=== PATIENT | female | born 1940 | race Caucasian/White ===

== ENCOUNTER 2020-03-07 10:14 | Outpatient (CLI) | payer MEDICARE, SELFPAY ==
[2020-03-07 10:55] LABS: Albumin Level 4.4 g/dL (3.5-5.1); Blood Urea Nitrogen 37 mg/dL (7-17); Calcium 9.7 mg/dL (8.4-10.2); Carbon Dioxide 29 mmol/L (22-30); Chloride 101 mmol/L (98-107); Estimated Glomerular Filt Rate 36; Glucose 128 mg/dL (65-105); Phosphorus 4.4 mg/dL (2.5-4.5); Potassium 3.5 mmol/L (3.4-5.0); Sodium 137 mmol/L (137-145)
== END 2020-03-07 10:15 | disposition home or self-care (01) ==
PROVIDERS: Internal Medicine Nephrology; Visit Provider Internal Medicine Nephrology
DX: N18.3 Chronic kidney disease, stage 3 (moderate) (principal)
CPT/HCPCS: 36415; 80069

== ENCOUNTER 2020-09-30 12:29 | Outpatient (CLI) | payer MEDICARE, SELFPAY ==
[2020-09-30 13:40] LABS: Creatinine Urine 69.2 mg/dL; Total Protein Urine Random 154 mg/dL
[2020-09-30 13:46] LABS: Albumin Level 3.9 g/dL (3.5-5.1); Anion Gap 8 mmol/L (8-16); Blood Urea Nitrogen 39 mg/dL (7-17); Calcium 9.2 mg/dL (8.4-10.2); Carbon Dioxide 29 mmol/L (22-30); Chloride 97 mmol/L (98-107); Estimated Glomerular Filt Rate 31; Glucose 103 mg/dL (65-105); Phosphorus 4.3 mg/dL (2.5-4.5); Potassium 3.7 mmol/L (3.4-5.0); Sodium 134 mmol/L (137-145)
[2020-09-30 13:58] LABS: Parathyroid Intact 192.7 pg/mL (7.5-53.5)
[2020-09-30 14:14] LABS: Vitamin D 25 Hydroxy 34.4 ng/mL
== END 2020-09-30 12:30 | disposition home or self-care (01) ==
PROVIDERS: Visit Provider Internal Medicine Nephrology
DX: I12.9 Hypertensive chronic kidney disease with stage 1 through stage 4 chronic kidney disease, or unspecified chronic kidney disease (principal); N18.4 Chronic kidney disease, stage 4 (severe); R80.8 Other proteinuria
CPT/HCPCS: 36415; 80069; 82306; 82570; 83970; 84156

== ENCOUNTER 2020-11-11 13:33 | Outpatient (CLI) | payer MEDICARE, SELFPAY ==
[2020-11-11 14:33] LABS: Albumin Level 3.9 g/dL (3.5-5.1); Anion Gap 5 mmol/L (8-16); Blood Urea Nitrogen 38 mg/dL (7-17); Calcium 9.1 mg/dL (8.4-10.2); Carbon Dioxide 26 mmol/L (22-30); Chloride 105 mmol/L (98-107); Estimated Glomerular Filt Rate 40; Glucose 103 mg/dL (65-105); Potassium 4.3 mmol/L (3.4-5.0); Sodium 136 mmol/L (137-145)
== END 2020-11-11 13:34 | disposition home or self-care (01) ==
PROVIDERS: Visit Provider Internal Medicine Nephrology
DX: R80.8 Other proteinuria (principal); I12.9 Hypertensive chronic kidney disease with stage 1 through stage 4 chronic kidney disease, or unspecified chronic kidney disease; N18.32 Chronic kidney disease, stage 3b
CPT/HCPCS: 36415; 80069

== ENCOUNTER 2020-11-12 12:15 | Outpatient (CLI) | payer MEDICARE, SELFPAY ==
[2020-11-12 13:11] LABS: Total Protein Urine Random 300 mg/dL
== END 2020-11-12 12:16 | disposition home or self-care (01) ==
PROVIDERS: Visit Provider Internal Medicine Nephrology
DX: N18.32 Chronic kidney disease, stage 3b (principal); I12.9 Hypertensive chronic kidney disease with stage 1 through stage 4 chronic kidney disease, or unspecified chronic kidney disease; R80.8 Other proteinuria
CPT/HCPCS: 82570; 84156

== ENCOUNTER 2021-04-02 14:04 | Outpatient (CLI) | payer MEDICARE, SELFPAY ==
[2021-04-02 16:23] LABS: Creatinine Urine 41.9 mg/dL; Total Protein Urine Random 184 mg/dL; Ur Ttl Prot Creatinine Ratio 4.39 mg/mg (0-0.20)
[2021-04-02 16:33] LABS: Anion Gap 6 mmol/L (8-16); Blood Urea Nitrogen 53 mg/dL (7-17); Calcium 9.2 mg/dL (8.4-10.2); Carbon Dioxide 29 mmol/L (22-30); Chloride 102 mmol/L (98-107); Estimated Glomerular Filt Rate 27; Glucose 92 mg/dL (65-105); Phosphorus 4.6 mg/dL (2.5-4.5); Sodium 137 mmol/L (137-145)
[2021-04-02 17:17] LABS: Vitamin D 25 Hydroxy 32.9 ng/mL
== END 2021-04-02 14:05 | disposition home or self-care (01) ==
LOC: ANHLAB 14:15
PROVIDERS: PCP Internal Medicine Nephrology; Visit Provider Internal Medicine Nephrology
DX: I12.9 Hypertensive chronic kidney disease with stage 1 through stage 4 chronic kidney disease, or unspecified chronic kidney disease (principal); N18.31 Chronic kidney disease, stage 3a; E55.9 Vitamin D deficiency, unspecified; R80.8 Other proteinuria
CPT/HCPCS: 36415; 80069; 82306; 82570; 83970; 84156

== ENCOUNTER 2021-08-11 14:03 | Outpatient (CLI) | payer MEDICARE, SELFPAY ==
[2021-08-11 14:52] LABS: Basophils Percent Auto 0.8 % (0.2-1.2); Eosinophils Absolute Auto 0.2 K/mm3 (0-0.3); Hematocrit 29.4 % (37.0-47.0); Hemoglobin 9.8 g/dL (12.0-15.0); Immature Granulocyte Absolute 0.02 K/mm3 (0.00-0.031); Immature Granulocyte Percent A 0.4 % (0-0.5); Lymphocytes Absolute Auto 1.55 K/mm3 (0.9-3.2); Lymphocytes Percent Auto 29.8 % (18.3-44.2); Mean Corpuscular HGB Conc 33.3 g/dl (32-36); Mean Corpuscular Hemoglobin 29.4 pg (26-34); Mean Corpuscular Volume 88.3 fl (80-100); Mean Platelet Volume 8.9 fl (7.4-10.4); Monocytes Absolute Auto 0.6 K/mm3 (0.1-0.6); Monocytes Percent Auto 11.7 % (2.6-8.5); Neutrophils Absolute Auto 2.8 K/mm3 (1.3-6.7); Neutrophils Percent Auto 53.3 % (45.5-73.1); Platelet Count Result 227 k/mm3 (150-375); Red Blood Count 3.33 M/mm3 (4.2-5.4); Red Cell Distribution Width 13.4 % (11.5-14.5); White Blood Count 5.2 K/mm3 (4.5-10.0)
[2021-08-11 15:14] LABS: Alanine Aminotransferase 18 U/L (4-35); Alkaline Phosphatase 68 U/L (38-126); Anion Gap 8 mmol/L (8-16); Aspartate Amino Transferase 26 U/L (14-36); Bilirubin,Total 0.4 mg/dL (0.2-1.3); Blood Urea Nitrogen 49 mg/dL (7-17); Calcium 9.2 mg/dL (8.4-10.2); Carbon Dioxide 26 mmol/L (22-30); Chloride 104 mmol/L (98-107); Estimated Glomerular Filt Rate 23; Glucose 121 mg/dL (65-110); Potassium 3.7 mmol/L (3.4-5.0); Sodium 138 mmol/L (137-145)
== END 2021-08-11 14:04 | disposition home or self-care (01) ==
DX: D64.9 Anemia, unspecified (principal); N18.30 Chronic kidney disease, stage 3 unspecified; D63.1 Anemia in chronic kidney disease
CPT/HCPCS: 36415; 80053; 85025

== ENCOUNTER 2021-08-19 11:07 | Outpatient (CLI) | payer MEDICARE, SELFPAY ==
[2021-08-19 12:17] LABS: Add Urine Microscopic? YES; Appearance Urine Clear (Clear); Bilirubin Urine Negative (Negative); Blood Urine Negative (Negative); Color Urine Yellow (Yellow); Glucose Urine UA Negative (Negative); Ketones Urine Negative (Negative); Leukocyte Esterase Ur Negative LEU/UL (NEGATIVE); Mucus Urine Rare /lpf; Nitrate Urine Negative (Negative); Protein Urine 3+ mg/dL (Negative); RBC Urine 0-2 /hpf (0-2); Specific Grav Ur 1.015 (1.001-1.035); Squamous Epithelial Cell Urine Occasional /hpf (Few); Urobilinogen Urine Negative mg/dL (<2.0); WBC Urine 0-3 /hpf (0-3)
== END 2021-08-19 11:08 | disposition home or self-care (01) ==
LOC: ANHLAB 11:09
PROVIDERS: Visit Provider Internal Medicine Nephrology
DX: R35.89 Other polyuria (principal); R30.0 Dysuria
CPT/HCPCS: 81001; 87086; 87088

== ENCOUNTER 2021-08-21 11:36 | Emergency (ER) | payer MEDICARE, SELFPAY ==
--- NOTE | ~2021-08-21 | CT_ITS ---
EXAMINATION: CT abdomen pelvis wo con DATE: 08/21/2021 12:38 INDICATION: Bilateral flank pain. Low back pain. TECHNIQUE: Computed tomography (CT) of the abdomen and pelvis was performed without intravenous contr ast. Automated exposure control and iterative reconstruction technique were employed. The dose-length product was 448.07 mGy-cm. COMPARISON: None. FINDINGS: The visualized portions of the lung bases demonstrate mild atelectasis. No pleural effusion . The heart size is normal. No pericardial effusion. The liver is normal. There are changes of cholec ystectomy. The spleen, pancreas, adrenal glands, and right kidney are normal. There is cortical thinn ing of left kidney. There is no urolithiasis. There is diverticulosis of the colon without evidence o f diverticulitis. There are no dilated loops of bowel. The appendix is not visualized. There are no p athologically enlarged lymph nodes. There is no free intraperitoneal fluid. There is a right inguinal hernia containing fat. There is moderate lumbar spondylosis. IMPRESSION: 1. Right inguinal hernia containing fat. Reviewed, dictated and finalized at location A.
[2021-08-21 11:37] VITALS: BP 126/57; PULSE 62; RESP 20; TEMP 36.4; O2SAT 100
--- NOTE | 2021-08-21 11:59 | PC.NURSE ---
Pt requesting pain meds frequently. Advised a provider needs to see her and order pain meds.
--- NOTE | 2021-08-21 12:41 | ED.BACK ---
HPI - Back Pain/Injury General Chief Complaint: Back Pain/Injury Stated Complaint: back pain Time Seen by Provider: 08/21/21 12:16 Source: patient Mode of arrival: ambulatory Limitations: no limitations History of Present Illness HPI Narrative: Patient is a 80-year-old female complaining of low back pain, 8 out of 10, dull, aching, worse with movement started 1 week ago. Patient denies any injuries. Patient denies any weakness, numbness, incontinence, urinary symptoms, fever or chills. Related Data Allergies Allergy/AdvReac Type Severity Reaction Status Date / Time No Known Allergies Allergy Verified 08/21/21 11:41 Review of Systems Review of Systems: All systems reviewed & are unremarkable except as noted in HPI and below Constitutional: Constitutional: Denies body ache(s), Denies chills, Denies excessive sweating, Denies fatigue, Denies fever(s), Denies headache(s), Denies lethargy, Denies malaise, Denies weakness and Denies weight loss Eyes: Eyes: Denies blurry vision, Denies change in vision and Denies loss of vision ENT: Denies dizziness, Denies ear discharge, Denies headache(s), Denies lip swelling, Denies epistaxis, Denies nasal congestion, Denies neck pain, Denies throat swelling and Denies tongue swelling Cardiovascular: Cardiovascular: Denies chest pain, Denies chest pain at rest, Denies chest pain with activity, Denies diaphoresis, Denies rapid heart rate, Denies edema, Denies irregular heart rhythm, Denies lightheadedness, Denies palpitations, Denies dyspnea and Denies dyspnea on exertion Respiratory: Respiratory: Denies chest congestion, Denies cough, Denies hemoptysis, Denies dyspnea and Denies dyspnea on exertion Gastrointestinal: Gastrointestinal: Denies abdominal pain, Denies melena, Denies hematochezia, Denies diarrhea, Denies nausea, Denies vomiting and Denies hematemesis Musculoskeletal: Musculoskeletal: Denies abnormal gait, Denies deformity, Denies joint swelling, Denies limited range of motion, Denies neck pain and Denies numbness Neurologic: Denies Abnormal speech present, Denies abnormal gait, Denies confusion, Denies dizziness, Denies headache(s), Denies focal weakness, Denies loss of vision, Denies numbness, Denies Other visual disturbances, Denies Sensory deficit (Neuro) and Denies weakness Psychiatric: Psychiatric: Denies confusion, Denies depression, Denies auditory hallucinations, Denies homicidal ideation and Denies suicidal ideation Endocrine: Endocrine: Denies cold intolerance, Denies excessive sweating, Denies fatigue, Denies heat intolerance and Denies palpitations Hematologic/Lymphatic: Hematologic/Lymphatic: Denies easy bleeding and Denies easy bruising Allergic/Immunologic: Allergic/Immunologic: Denies lip swelling, Denies throat swelling and Denies tongue swelling PMFSH Family History Family History Father Hypertension Family history of elevated blood lipids Sibling Hypertension Family history of elevated blood lipids Social History Social History Smoking status: Never smoker Alcohol intake: current Exam Const: General: cooperative, healthy appearing, comfortable, no acute distress, well developed, alert and awake; No confusion Orientation/consciousness: oriented to person, oriented to place, oriented to time, patient oriented x3 and No confusion Limitations: no limitations HENMT: Head: normal to inspection, normocephalic and atraumatic Ears: hearing grossly normal bilaterally, TM normal on the right and TM normal on the left General nose exam: Normal external nose present, Normal nares present and No nasal discharge present Face and sinus: normal facial exam Mouth: Yes Normal oral and palatal mucosa present, Yes lip normal, Yes tongue normal and Yes oropharynx normal Throat: posterior oropharynx normal, tonsils normal and uvula midline Eyes: General: appeara
[2021-08-21 12:50] LABS: Add Urine Microscopic? YES; Appearance Urine Clear (Clear); Bilirubin Urine Negative (Negative); Blood Urine Negative (Negative); Color Urine Yellow (Yellow); Glucose Urine UA Negative (Negative); Hyaline Casts Urine 20-29 /lpf; Ketones Urine Negative (Negative); Leukocyte Esterase Ur Negative LEU/UL (Negative); Nitrate Urine Negative (Negative); Protein Urine 3+ mg/dL (Negative); Specific Grav Ur 1.014 (1.001-1.035); Squamous Epithelial Cell Urine Rare /hpf (Few); Urobilinogen Urine Negative mg/dL (<2.0); WBC Urine 0-3 /hpf
[2021-08-21] MEDS: KETOROLAC 30 MG/ML VIAL (*BKC) IM (13:35)
[2021-08-21] MEDS: HYDROcodone/acetaminophen (*CRX) 5-325 MG TABLET 1 TAB PO (13:35)
== END 2021-08-21 13:58 | disposition home or self-care (01) ==
PROVIDERS: Emergency Provider Emergency Medicine
DX: M54.50 Low back pain, unspecified (principal)
CPT/HCPCS: 51701; 74176; 81001; 96372; 99284; A9270; J1885

== ENCOUNTER 2021-12-14 13:02 | Outpatient (CLI) | payer MEDICARE, SELFPAY ==
[2021-12-14 13:58] LABS: Anion Gap 10 mmol/L (8-16); Blood Urea Nitrogen 54 mg/dL (7-17); Calcium 8.9 mg/dL (8.4-10.2); Carbon Dioxide 24 mmol/L (22-30); Chloride 103 mmol/L (98-107); Estimated Glomerular Filt Rate 19; Glucose 106 mg/dL (65-110); Phosphorus 4.7 mg/dL (2.5-4.5); Potassium 3.6 mmol/L (3.4-5.0); Sodium 137 mmol/L (137-145)
== END 2021-12-14 13:03 | disposition home or self-care (01) ==
LOC: ANHLAB 13:05
PROVIDERS: Visit Provider Internal Medicine Nephrology
DX: N18.32 Chronic kidney disease, stage 3b (principal); R80.8 Other proteinuria; I12.9 Hypertensive chronic kidney disease with stage 1 through stage 4 chronic kidney disease, or unspecified chronic kidney disease
CPT/HCPCS: 36415; 80069

== ENCOUNTER 2021-12-29 13:52 | Outpatient (CLI) | payer MEDICARE, SELFPAY ==
[2021-12-29 15:33] LABS: Total Protein Urine Random 388 mg/dL; Ur Ttl Prot Creatinine Ratio 4.08 mg/mg (0-0.20)
== END 2021-12-29 13:53 | disposition home or self-care (01) ==
PROVIDERS: Visit Provider Internal Medicine Nephrology
DX: I12.9 Hypertensive chronic kidney disease with stage 1 through stage 4 chronic kidney disease, or unspecified chronic kidney disease (principal); N18.32 Chronic kidney disease, stage 3b; R80.8 Other proteinuria
CPT/HCPCS: 82570; 84156

== ENCOUNTER 2022-04-23 14:01 | Outpatient (NON) | payer MEDICARE, SELFPAY ==
[2022-04-23 15:16] LABS: IFOB Positive Control Positive; Immunochemical Fecal Occult Bl Negative (N)
[2022-04-27 01:55] LABS: Lactoferrin, Stool Negative (Negative)
[2022-04-28 16:49] LABS: H pylori Ag Stool Not Detected (Not Detected)
[2022-04-29 20:58] LABS: Fecal Fat, Ql Abnormal (Normal)
[2022-05-07 17:27] LABS: Pancreatic Elastase, Stool >500 mcg/g
== END 2022-04-23 14:02 | disposition home or self-care (01) ==
DX: K52.9 Noninfective gastroenteritis and colitis, unspecified (principal)
CPT/HCPCS: 36415; 82274; 82653; 82705; 83630; 87045; 87338; 87427

== ENCOUNTER 2022-06-28 15:46 | Outpatient (CLI) | payer MEDICARE, SELFPAY ==
[2022-06-28 16:20] LABS: Albumin Level 3.5 g/dL (3.5-5.1); Anion Gap 10 mmol/L (8-16); Blood Urea Nitrogen 73 mg/dL (7-17); Calcium 8.9 mg/dL (8.4-10.2); Carbon Dioxide 21 mmol/L (22-30); Chloride 103 mmol/L (98-107); Estimated Glomerular Filt Rate 13; Glucose 96 mg/dL (65-110); Phosphorus 6.1 mg/dL (2.5-4.5); Potassium 3.8 mmol/L (3.4-5.0); Sodium 134 mmol/L (137-145)
[2022-06-28 16:24] LABS: Creatinine Urine 84.1 mg/dL
[2022-06-28 18:00] LABS: Total Protein Urine Random 285 mg/dL; Ur Ttl Prot Creatinine Ratio 3.39 mg/mg (0-0.20)
== END 2022-06-28 15:47 | disposition home or self-care (01) ==
PROVIDERS: Visit Provider Internal Medicine Nephrology
DX: R80.8 Other proteinuria (principal); I12.9 Hypertensive chronic kidney disease with stage 1 through stage 4 chronic kidney disease, or unspecified chronic kidney disease; N18.4 Chronic kidney disease, stage 4 (severe)
CPT/HCPCS: 36415; 80069; 82570; 84156

== ENCOUNTER → 2022-07-06 12:38 | Outpatient (CLI) | payer MEDICARE, SELFPAY ==
--- NOTE | ~2022-07-06 | US_ITS ---
EXAMINATION: US renal BI DATE: 07/06/2022 13:07 INDICATION: Renal failure TECHNIQUE: Multiple grayscale and Doppler ultrasound images of the kidneys were obtained. COMPARISON: None. FINDINGS: The right kidney measures 9.4 x 3.8 x 5.2 cm and contains an 8 mm cyst. The left kidney tiago sures 8.7 x 4.7 x 4.3 cm and contains a 9 mm cyst. The kidneys demonstrate normal parenchymal echogen icity. There is no hydronephrosis. The bladder is normal. IMPRESSION: 1. Normal kidneys without hydronephrosis. Reviewed, dictated and finalized at location B.
== END ==
PROVIDERS: Visit Provider Internal Medicine Nephrology
DX: I12.0 Hypertensive chronic kidney disease with stage 5 chronic kidney disease or end stage renal disease (principal); N18.5 Chronic kidney disease, stage 5; R80.0 Isolated proteinuria
CPT/HCPCS: 76775

== ENCOUNTER 2022-07-19 07:32 | Outpatient (CLI) | payer MEDICARE, SELFPAY ==
--- NOTE | 2022-07-16 14:59 | SUR.PREOP ---
Multiple attempts to reach patient since 07/13/22 with several messages left and patient has not called back, Thi in radiology aware.
--- NOTE | 2022-07-16 15:55 | PC.NURSE ---
Pre Radiology instructions Report to the Outpatient Waiting Room, entrance under the green pavilion located off [facility], at time 730 on date 07/19 Procedure Time: 930. YOU MAY BE MONITORED AT HOSPITAL FOR UP TO 4 HOURS AFTER YOUR PROCEDURE. One visitor will be allowed to accompany the patient into the hospital. The visitor will be instructed to remain with patient at all times or leave the building due to restrictions. We will allow the visitor to come back to the postoperative area when patient is ready. NO children visitors allowed at this time. You and your visitor will be asked to self-screen and do not enter if you have any COVID symptoms. A mask is required within the hospital. Patients are to have no food or drink 6 hours prior to procedure time Driving will be restricted after the procedure, you must have a person to drive you home. Labs will be drawn in preop area and once reviewed, you will be taken to radiology area for procedure. When the procedure is completed, you will be taken to outpatient where you will be monitored for several hours. You may have one visitor in this area. Other than holding anti-coagulants, patient may take other medication(s) as scheduled. Prior to your appointment date patients are instructed to hold anti-coagulants after discussing with ordering provider to stop. If unable to discontinue anti-coagulants please notify radiologist. No aspirin or warfarin (Coumadin) for 7 days prior to the procedure. No clopidogrel (Plavix), ticagrelor (Brilinta), prasugrel (Effient) or dabigatran (Pradaxa) for 5 days prior to the procedure. No rivaroxaban (Xarelto), apixaban (Eliquis), dipyridamole (Aggrenox or Persantine) or cilostazol (Pletal) for 2 days prior to the procedure. Medications to discontinue per physician. none Please leave all valuables, including medications, at home the day of procedure. The hospital will not accept responsibility for valuables. Wear comfortable, loose fitting clothing. Follow any additional instructions given to you from ordering provider. Telephone instructions given to dionne Alarcon and asked if any additional questions and then verbalized understanding. Patient advised to call scheduling provider office or registration scheduling [phone] if any additional questions.
[2022-07-16 16:01] VITALS: BMI 25.1
[2022-07-19] VITALS (11 sets, daily range): BP systolic 136–185; BP diastolic 62–89; PULSE 65–76; RESP 16–17; TEMP 36; O2SAT 100
--- NOTE | ~2022-07-19 | US_ITS ---
EXAMINATION: US biopsy renal DATE: 07/19/2022 11:28 INDICATION: Chronic kidney disease stage V. TECHNIQUE: The procedure including the risks, benefits, and alternatives was discussed with the patie nt. Risks discussed included bleeding and infection. The patient understood the risks and agreed to p roceed. A timeout was performed to verify the patient's name, date of , and procedure to be p erformed. The skin overlying the left kidney was prepped and draped in usual sterile fashion. Anest hetic was administered with 1% lidocaine subcutaneously. An 18 gauge core biopsy needle was then use d to obtain 4 core biopsy specimens under continuous sonographic guidance. The entry site was cleaned and dressed. There were no immediate complications. FINDINGS: Ultrasound images demonstrate the needle in the kidney. IMPRESSION: 1. Ultrasound-guided random left kidney core needle biopsy. Reviewed, dictated and finalized at location A.
[2022-07-19 08:21] LABS: Mean Platelet Volume 8.9 fl (7.4-10.4); Platelet Count Result 199 k/mm3 (150-375)
[2022-07-19 08:35] LABS: Prothrombin Time 12.6 Seconds (11.1-14.7)
== END 2022-07-19 14:30 | disposition home or self-care (01) ==
PROVIDERS: Referring Provider Internal Medicine Nephrology; Visit Provider Radiology Diagnostic Radiology
PROC: (CPT 76942; principal; 2022-07-19 09:30)
DX: I12.0 Hypertensive chronic kidney disease with stage 5 chronic kidney disease or end stage renal disease (principal); N18.5 Chronic kidney disease, stage 5; R80.9 Proteinuria, unspecified
CPT/HCPCS: 36415; 50200; 76942; 85049; 85610; 88300; 88305; 88307; 88313; 88329; 88346; 88348; 88350

== ENCOUNTER 2022-08-14 22:55 | Emergency (ER) | payer MEDICARE, SELFPAY ==
--- NOTE | ~2022-08-14 | CT_ITS ---
EXAMINATION: CT brain wo con DATE: 08/15/2022 00:28 INDICATION: Weakness, nausea, dizziness and sensitivity to light. Hypertension. TECHNIQUE: Computed tomography (CT) of the head was performed without intravenous contrast. Sagittal and coronal reconstructions were performed. The mA was adjusted according to patient size. Iterative reconstruction technique was employed. The dose-length product was 605.33 mGy-cm. COMPARISON: None FINDINGS: 10 x 11 x 7 mm region of increased density with some surrounding vasogenic edema at the posterior inf erior prem consistent with small intraparenchymal hemorrhage. No associated mass effect. No acute inf arction or abnormal extra axial fluid collection. There is moderate scattered white matter hypoattenu ation consistent with chronic small vessel ischemic disease. Mild dystrophic calcific a cyst at the b ilateral basal ganglia. Ventricles are normal and symmetric. No mass/mass effect. Changes of bilatera l intraocular lens replacement. The orbits, paranasal sinuses and mastoid air cells are normal. Intra cranial calcified cerebral atherosclerosis is noted at the carotid siphons. IMPRESSION: 1. Small intraparenchymal hemorrhage at the posterior inferior prem. 2. Moderate scattered white matter hypoattenuation consistent with chronic small vessel ischemic dise ase. Reviewed, dictated and finalized at location A. IMPRESSION: 1. Small intraparenchymal hemorrhage at the posterior inferior prem. 2. Moderate scattered white matter hypoattenuation consistent with chronic smal l vessel ischemic disease.
--- NOTE | ~2022-08-14 | XR_ITS ---
EXAMINATION: XR chest 1V portable DATE: 08/15/2022 00:32 INDICATION: Weakness TECHNIQUE: frontal view of the chest was obtained. COMPARISON: Chest radiograph dated 08/19/2009 FINDINGS: Mild opacities at the medial right lower lung zones. Small left paracardial fat pad with chronic blun ting of the left costophrenic angle. No other airspace opacities, pulmonary edema, pleural effusion o r pneumothorax. The cardiomediastinal silhouette is normal. Mild thoracic dextrocurvature. At least m oderate degenerative skeletal changes at the bilateral shoulders. IMPRESSION: 1. Mild opacities at the medial right lower lung zones which could be related to bronchiectasis, atel ectasis, aspiration or pneumonia. Reviewed, dictated and finalized at location A. IMPRESSION: 1. Mild opacities at the medial right lower lung zones which could be related t o bronchiectasis, atelectasis, aspiration or pneumonia.
[2022-08-14 22:56] VITALS: PULSE 81; RESP 16; TEMP 36.2; O2SAT 98
[2022-08-14 23:09] VITALS: BP 258/108
--- NOTE | 2022-08-14 23:22 | ECG_ITS ---
Measurements Intervals [place] Rate: 74 P: 51 TN: 220 QRS: 19 QRSD: 97 T: 28 QT: 441 QTc: 490 Interpretive Statements SINUS RHYTHM WITH FIRST DEGREE AV BLOCK WITH OCCASIONAL SUPRAVENTRICULAR PREMATURE COMPLEXES POSSIBLE LEFT ATRIAL ENLARGEMENT NONSPECIFIC ST ABNORMALITY BORDERLINE ECG NO PREVIOUS ECG AVAILABLE FOR COMPARISON Electronically Signed On 08-15-2022 15:40:17 CDT by Jean Pierre Fowler M.D.
--- NOTE | 2022-08-14 23:28 | ED.GENADULT ---
HPI - General Adult General Chief complaint: Weakness Stated complaint: weakness History of Present Illness HPI narrative: Patient is an 81-year-old female with a history of hypertension, CKD presenting with weakness and vomiting. Patient's son reports that she became generally weak this afternoon and then had several episodes of vomiting. Denies diarrhea, dysuria, abdominal pain, flank pain. Patient also complains that she feels sensitive to light though she denies headache. Denies numbness or weakness, speech changes, vision changes, chest pain, shortness of breath, cough. On arrival, patient continues to have episodes of emesis. Related Data Home Medications Medication Instructions Recorded Confirmed cyclosporine 0.05 % eye drops in a 1 drp EACH EYE DAILY 07/19/22 07/19/22 dropperette (Restasis) hydrochlorothiazide 12.5 mg capsule 12.5 mg PO DAILY 07/19/22 07/19/22 labetalol 200 mg tablet 200 mg PO DAILY 07/19/22 07/19/22 nifedipine 90 mg tablet,extended 90 mg PO DAILY 07/19/22 07/19/22 release Allergies Allergy/AdvReac Type Severity Reaction Status Date / Time No Known Allergies Allergy Verified 08/14/22 23:05 Review of Systems Review of Systems: All systems reviewed & are unremarkable except as noted in HPI and below PMFSH Family History Family History Father Hypertension Family history of elevated blood lipids Sibling Hypertension Family history of elevated blood lipids Social History Social History Smoking status: Never smoker Alcohol intake: current Exam Narrative: GENERAL: Patient intermittently vomiting, appears uncomfortable HEAD: Normocephalic, atraumatic. EYES: PERRLA and EOMI. ENT: Nares clear, no rhinorrhea or epistaxis. Mucous membranes moist. NECK: Supple. CHEST: Clear to auscultation. No respiratory distress. HEART: Regular rate and rhythm. No murmur heard. Normal peripheral pulses. ABDOMEN: Soft, nontender, nondistended, normal active bowel sounds. EXTREMITIES: Normal range of motion. SKIN: Warm, dry, no rash. NEURO: No focal deficits. Alert and oriented x3. PSYCH: Normal mood and affect. Course Course Emergency Course: Patient is an 81-year-old female presenting with vomiting and generalized weakness. Patient is hypertensive on arrival, otherwise vitals are within normal limits. Exam remarkable for the above. EKG per my interpretation shows normal sinus rhythm, normal axis, first-degree AV block, no ST elevations or depressions. Blood work is concerning for a hemoglobin of 6.5. CT head is concerning for a small intraparenchymal hemorrhage in the prem. Patient remains hypertensive so she was placed on a nicardipine drip with goal blood pressure under 140. I spoke with the neuro ICU at [facility] who has accepted the patient for admission. Patient transferred in serious condition. Vital Signs Vital signs: Vital Signs Temperature 97.1 F L 08/14/22 22:56 Pulse Rate 81 08/14/22 22:56 Respiratory Rate 16 08/14/22 22:56 Pulse Oximetry 98 08/14/22 22:56 Oxygen Delivery Room Air 08/14/22 22:56 Temperature 97.1 F L 08/14/22 22:56 Pulse Rate 82 08/15/22 02:01 Respiratory Rate 14 08/15/22 02:01 Blood Pressure 151/66 H 08/15/22 02:15 Pulse Oximetry 98 08/15/22 02:01 Oxygen Delivery Room Air 08/14/22 22:56 Medical Decision Making Vital Signs Vital Signs: Vital Signs Temperature 97.1 F L 08/14/22 22:56 Pulse Rate 81 08/14/22 22:56 Respiratory Rate 16 08/14/22 22:56 Pulse Oximetry 98 08/14/22 22:56 Oxygen Delivery Room Air 08/14/22 22:56 Temperature 97.1 F L 08/14/22 22:56 Pulse Rate 82 08/15/22 02:01 Respiratory Rate 14 08/15/22 02:01 Blood Pressure 151/66 H 08/15/22 02:15 Pulse Oximetry 98 08/15/22 02:01 Oxygen Delivery Room Air 08/14/22 22:56 Lab Data Result diagrams:
[2022-08-14] MEDS: ONDANSETRON INJ 4 MG/2 ML VIAL IV PUSH (23:39)
[2022-08-14 23:49] LABS: Basophils Absolute Auto 0.1 K/mm3 (0.0-0.1); Basophils Percent Auto 0.9 % (0.2-1.2); Eosinophils Absolute Auto 0.1 K/mm3 (0-0.3); Eosinophils Percent Auto 1.5 % (0-4.4); Immature Granulocyte Absolute 0.01 K/mm3 (0.00-0.031); Immature Granulocyte Percent A 0.2 % (0-0.5); Lymphocytes Absolute Auto 1.02 K/mm3 (0.9-3.2); Lymphocytes Percent Auto 18.5 % (18.3-44.2); Mean Corpuscular HGB Conc 32.8 g/dl (32-36); Mean Corpuscular Hemoglobin 28.4 pg (26-34); Mean Corpuscular Volume 86.5 fl (80-100); Mean Platelet Volume 9.2 fl (7.4-10.4); Monocytes Absolute Auto 0.3 K/mm3 (0.1-0.6); Monocytes Percent Auto 5.6 % (2.6-8.5); Neutrophils Percent Auto 73.3 % (45.5-73.1); Platelet Count Result 253 k/mm3 (150-375); Red Blood Count 2.29 M/mm3 (4.2-5.4); Red Cell Distribution Width 13.3 % (11.5-14.5); White Blood Count 5.5 K/mm3 (4.5-10.0)
[2022-08-14 23:52] VITALS: BP 241/91
[2022-08-14 23:56] LABS: Hematocrit 19.8 % (37.0-47.0)
[2022-08-14 23:59] LABS: Lactic Acid Reflex 0.8 mmol/L (0.7-2.0)
--- NOTE | 2022-08-14 23:59 | PC.NURSE ---
Pt stated she had to urinate. agricultural service technician Livier went to assist pt. Per tech, depend noted to be soiled upon placement on bedpan. Unable to urinate. Depend changed.
[2022-08-15] VITALS (8 sets, daily range): BP systolic 151–250; BP diastolic 65–82; PULSE 70–82; RESP 14–16; O2SAT 96–98
[2022-08-15] LABS: Alanine Aminotransferase 19 U/L (6-35); Albumin Level 4.4 g/dL (3.5-5.1); Alkaline Phosphatase 87 U/L (38-126); Anion Gap 14 mmol/L (8-16); Aspartate Amino Transferase 25 U/L (14-36); Bilirubin,Total 0.6 mg/dL (0.2-1.3); Blood Urea Nitrogen 58 mg/dL (7-17); Calcium 9.8 mg/dL (8.4-10.2); Carbon Dioxide 20 mmol/L (22-30); Chloride 104 mmol/L (98-107); Estimated CRCL calculation 10 ml/min; Estimated Glomerular Filt Rate 11; Glucose 146 mg/dL (65-110); Lipase 128 U/L (23-300); Potassium 3.4 mmol/L (3.4-5.0); Sodium 138 mmol/L (137-145)
[2022-08-15 00:05] LABS: Hemoglobin 6.5 g/dL (12.0-15.0)
[2022-08-15 00:20] LABS: Troponin I 0.015 ng/mL (0.000-0.034)
[2022-08-15 00:58] LABS: Add Urine Microscopic? YES; Appearance Urine Clear (Clear); Bilirubin Urine Negative (Negative); Blood Urine Negative (Negative); Color Urine Straw (Yellow); Glucose Urine UA 1+ mg/dL (Negative); Ketones Urine Negative (Negative); Leukocyte Esterase Ur Negative LEU/UL (Negative); Nitrate Urine Negative (Negative); Protein Urine 2+ mg/dL (Negative); RBC Urine 0-2 /hpf (0-2); Specific Grav Ur 1.012 (1.001-1.035); Urobilinogen Urine Negative mg/dL (<2.0); WBC Urine 0-3 /hpf
--- NOTE | 2022-08-15 01:17 | PC.NURSE ---
Talked to Lorena in lab at 01:17 to add on PT INR PTT
[2022-08-15] MEDS: niCARdipine 20 MG/200 ML 20 MG/200 ML BAG 50 MG IV CONT (01:20)
[2022-08-15 01:32] LABS: Partial Thromboplastin Time 31.9 SECONDS (22.3-36.8); Prothrombin Time 12.3 Seconds (11.1-14.7)
== END 2022-08-15 02:15 | disposition short-term general hospital (02) ==
PROVIDERS: Emergency Provider Emergency Medicine
DX: I61.8 Other nontraumatic intracerebral hemorrhage (principal); D64.9 Anemia, unspecified; I10 Essential (primary) hypertension
CPT/HCPCS: 36415; 51701; 70450; 71045; 80053; 81001; 83605; 83690; 84484; 85025; 85610; 85730; 86850; 86900; 86901; 86920; 93005; 96365; 96375; 99291; J2405

== ENCOUNTER 2022-09-10 13:53 | Observation (INO) | payer MEDICARE, SELFPAY ==
[2022-09-10] VITALS (56 sets, daily range): BP systolic 125–174; BP diastolic 50–73; PULSE 76–95; RESP 18–34; TEMP 36–36.9; O2SAT 91–100; BMI 21.2
--- NOTE | ~2022-09-10 | CT_ITS ---
EXAMINATION: CT brain wo con DATE: 09/10/2022 14:53 INDICATION: Decreased mental status TECHNIQUE: Computed tomography (CT) of the head was performed without intravenous contrast. Sagittal and coronal reconstructions were performed. The mA was adjusted according to patient size. Iterative reconstruction technique was employed. The dose-length product was 605.33 mGy-cm. COMPARISON: head CT dated 08/15/2022 FINDINGS: The prior acute intraparenchymal hemorrhage at the prem is no longer discernible. No acute intracrani al hemorrhage, acute infarction or abnormal extra axial fluid collection. There is moderate scattered white matter hypoattenuation consistent with chronic small vessel ischemic disease. Mild dystrophic calcifications at the bilateral basal ganglia. Ventricles are normal and symmetric. No mass/mass effe ct. Changes of bilateral intraocular lens replacement. The orbits, paranasal sinuses and mastoid air cells are normal. Intracranial calcified cerebral atherosclerosis is noted. IMPRESSION: 1. No acute intracranial process. 2. 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 3. Moderate scattered white matter hypoattenuation consistent with chronic small vessel ischemic dise ase. Reviewed, dictated and finalized at location A. RITY SERVICES SPECIALIST IMPRESSION: 1. No acute intracranial process. 2. 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 3. Moderate scattered white matter hypoattenuation consistent with chronic smal l vessel ischemic disease.
--- NOTE | ~2022-09-10 | XR_ITS ---
EXAMINATION: XR chest 1V portable DATE: 09/10/2022 14:52 INDICATION: Shortness of breath TECHNIQUE: frontal view of the chest was obtained. COMPARISON: Chest radiograph dated 08/15/2022 FINDINGS: New elevation of the right hemidiaphragm with new infrahilar opacity medial right lower lung zone. Un changed mild lingular atelectasis/scarring at the left costophrenic angle. No pulmonary edema, pleura l effusion or pneumothorax. Cardiomediastinal silhouette is normal. Large-bore dual-lumen right inter nal jugular central venous catheter with distal tip at the caudal superior vena cava. Cholecystectomy clips in right upper quadrant. Mild thoracic dextrocurvature with mild to moderate spondylosis. 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 IMPRESSION: 1. New elevation of the right hemidiaphragm with right infrahilar opacities which could represent ass ociated atelectasis or pneumonia. Reviewed, dictated and finalized at location A. PMENT MAINTENANCE SUPERINTENDENT IMPRESSION: 1. New elevation of the right hemidiaphragm with right infrahilar opacities whi ch could represent associated atelectasis or pneumonia.
--- NOTE | 2022-09-10 14:07 | ECG_ITS ---
Measurements Intervals [place] Rate: 86 P: 62 FL: 177 QRS: 37 QRSD: 91 T: 49 QT: 388 QTc: 467 Interpretive Statements SINUS RHYTHM POSSIBLE LEFT ATRIAL ENLARGEMENT BORDERLINE T WAVE ABNORMALITY- ANTERIOR LEADS BASELINE ARTIFACT- I, II, III, AVL, AVF, V1-V2, V6 BORDERLINE ECG COMPARED TO ECG 08/14/2022 23:23:55 NO SIGNIFICANT CHANGES Electronically Signed On 09-10-2022 16:20:24 SENIOR STOCK PLAN ADMINISTRATOR by Edward Castaneda D.O.
[2022-09-10 14:29] LABS: Alveolar/Arterial O2 Gradient 143.5 mmHg; Base Excess ABG 5.1 mEq/l (+/-2.0); Carboxyhemoglobin 0.1 % THb (0-2.0); Fractional Inspired Oxygen 36 %; HCO3 ABG 28.4 mEq/l (22.0-26.0); Methemoglobin ABG 0.1 %THb (0-1.5); Oxygen Saturation ABG 95.6 % (95.0-100.0); PCO2 ABG 36.7 mmHg (35.0-45.0); PO2 ABG 70.6 mmHg (80.0-100.0); PO2 FiO2 Ratio Arterial Blood 1.96 %; Reduced Hemoglobin 5.8 %THb (0-5.0)
[2022-09-10 14:31] LABS: Device NASAL CANNULA; Modified Allen's Test Pass; Site Drawn RIGHT RADIAL; pH ABG 7.507 (7.350-7.450)
--- NOTE | 2022-09-10 15:07 | ED.CHESTPAIN ---
HPI - Chest Pain General Chief Complaint: Chest Pain Stated Complaint: chest pain Time Seen by Provider: 09/10/22 13:56 Source: patient, family, EMS and RN notes reviewed Mode of arrival: EMS Limitations: other (stroke) History of Present Illness HPI narrative: This is an 81 year old female who presents from dialysis for evaluation of chest heaviness and shortness of breath. Patient was discharged from [facility] yesterday. She was in hospital for 3-4 weeks for evaluation intracranial hemorrhage. During her hospital course, she required dialysis and oxygen therapy. Her daughter states yesterday patient was discharged to rehab facility without oxygen orders. She was also on CPAP at [facility]. She was told today that patient may have fallen out of her wheelchair yesterday. Today she went to dialysis and her oxygen saturation was in 80s%. She was placed on oxygen at dialysis. Patient was complaining of chest heaviness at dialysis and it was thought to be due to hypoxia. Patient is lethargic and she is unable state if she is still having heaviness. Her daughter states the lethargy started today, and she was fine yesterday. Related Data Home Medications Medication Instructions Recorded Confirmed cyclosporine 0.05 % eye drops in a 1 drp EACH EYE DAILY 07/19/22 07/19/22 dropperette (Restasis) hydrochlorothiazide 12.5 mg capsule 12.5 mg PO DAILY 07/19/22 07/19/22 labetalol 200 mg tablet 200 mg PO DAILY 07/19/22 07/19/22 nifedipine 90 mg tablet,extended 90 mg PO DAILY 07/19/22 07/19/22 release Allergies Allergy/AdvReac Type Severity Reaction Status Date / Time No Known Allergies Allergy Verified 08/14/22 23:05 Review of Systems Review of Systems: ROS unobtainable: Yes unobtainable due to medical condition PMFSH Past Medical History Medical History (Updated 09/10/22 @ 22:31 by Rae Wren NP) End-stage renal disease on hemodialysis Gout Hypertension Surgical History Surgical History (Updated 09/10/22 @ 22:13 by Rae Wren NP) H/O cataract extraction H/O oophorectomy History of colonoscopy Hx of cholecystectomy Hx of parathyroidectomy Partial S/P appendectomy Family History Family History Father Hypertension Family history of elevated blood lipids Sibling Hypertension Family history of elevated blood lipids Social History Social History (Updated 09/10/22 @ 22:15 by Rae Wren NP) Social History: She is and retired. She has a son johnnie and a daughter Agnes listed as her contacts. Is reported that she is a lifelong nonsmoker. Code status full code Smoking status: Never smoker Alcohol intake: current Exam Const: General: ill appearing Limitations: altered mental status HENMT: Head: normal to inspection Eyes: Pupils: Equal, round and reactive pupils present EOM: EOMs intact bilaterally Resp: Effort & Inspection: tachypneic Auscultation: clear to auscultation bilaterally Cardio: Rate: regular rate Rhythm: regular rhythm Heart sounds: no murmurs GI: GI Palp: Yes Soft to palpation, No Tenderness to palpation present (GI) and No Guarding due to palpation present (GI) Auscultation: normal bowel sounds Skin: General skin exam: normal color Rashes: no rashes Neuro: General: moves all extremities and CN's II-XI intact bilaterally Cranial nerves: Yes Nystagmus not present Other: bilateral equal material scheduler strength, bilateral leg weakness, nonfocal, oriented to person Extrem: General: no pedal edema Psych: Mental Status: mental status grossly normal Course Reevaluation(s) Reevaluation #1: Patient's daughter is at bedside. She states patient is doing better. PAtient likely had chest heaviness due to hypoxia. She has been doing better since being on oxygen. Rae accepts patient to hospitalist service for evaluation, serial troponin. . No acute finding on CT brain. Date:
[2022-09-10 15:46] LABS: Basophils Percent Auto 0.3 % (0.2-1.2); Eosinophils Absolute Auto 0.1 K/mm3 (0-0.3); Eosinophils Percent Auto 0.8 % (0-4.4); Hematocrit 25.7 % (37.0-47.0); Hemoglobin 8.3 g/dL (12.0-15.0); Immature Granulocyte Absolute 0.22 K/mm3 (0.00-0.031); Immature Granulocyte Percent A 2.4 % (0-0.5); Lymphocytes Absolute Auto 1.09 K/mm3 (0.9-3.2); Lymphocytes Percent Auto 11.9 % (18.3-44.2); Mean Corpuscular HGB Conc 32.3 g/dl (32-36); Mean Corpuscular Hemoglobin 29.5 pg (26-34); Mean Corpuscular Volume 91.5 fl (80-100); Mean Platelet Volume 9.6 fl (7.4-10.4); Monocytes Absolute Auto 1.1 K/mm3 (0.1-0.6); Monocytes Percent Auto 11.7 % (2.6-8.5); Neutrophils Absolute Auto 6.7 K/mm3 (1.3-6.7); Neutrophils Percent Auto 72.9 % (45.5-73.1); Platelet Count Result 244 k/mm3 (150-375); Red Blood Count 2.81 M/mm3 (4.2-5.4); Red Cell Distribution Width 13.9 % (11.5-14.5); White Blood Count 9.2 K/mm3 (4.5-10.0)
[2022-09-10 15:55] LABS: Lactic Acid Reflex 1.1 mmol/L (0.7-2.0)
[2022-09-10 15:56] LABS: INR 1.1; Prothrombin Time 13.5 Seconds (11.1-14.7)
[2022-09-10 15:57] LABS: Alanine Aminotransferase 42 U/L (6-35); Albumin Level 3.5 g/dL (3.5-5.1); Alkaline Phosphatase 105 U/L (38-126); Anion Gap 14 mmol/L (8-16); Aspartate Amino Transferase 41 U/L (14-36); Bilirubin,Total 0.7 mg/dL (0.2-1.3); Blood Urea Nitrogen 19 mg/dL (7-17); Calcium 8.3 mg/dL (8.4-10.2); Carbon Dioxide 28 mmol/L (22-30); Chloride 92 mmol/L (98-107); Estimated CRCL calculation 26 ml/min; Estimated Glomerular Filt Rate 36; Glucose 109 mg/dL (65-110); Lipase 113 U/L (23-300); Magnesium 1.8 mg/dL (1.6-2.3); Partial Thromboplastin Time 31.5 SECONDS (22.3-36.8); Potassium 3.7 mmol/L (3.4-5.0); Sodium 134 mmol/L (137-145)
[2022-09-10 16:08] LABS: NT Pro B Type Natriuretic Pept 1450 pg/mL (5-100); Troponin I 0.033 ng/mL (0.000-0.034)
[2022-09-10 16:29] LABS: SARS-CoV-2 RNA PCR Negative
[2022-09-10 19:08] LABS: Appearance Urine Clear (Clear); Bilirubin Urine 1+ (Negative); Blood Urine Negative (Negative); Color Urine Yellow (Yellow); Glucose Urine UA Negative (Negative); Ketones Urine Trace mg/dL (Negative); Leukocyte Esterase Ur 1+ LEU/UL (Negative); Nitrate Urine Negative (Negative); Protein Urine 3+ mg/dL (Negative); Urobilinogen Urine 0.2 mg/dL (<2.0); pH Urine 5.5 (5.0-9.0)
[2022-09-10 19:20] LABS: Bacteria Urine 4+ /hpf; Mucus Urine Few /lpf; Squamous Epithelial Cell Urine Occasional /hpf (Few); WBC Urine 16-20 /hpf
[2022-09-10 19:23] LABS: Add Urine Microscopic? YES
[2022-09-10 20:25] LABS: Troponin I 0.033 ng/mL (0.000-0.034)
--- NOTE | 2022-09-10 20:53 | PC.NURSE ---
This patient, Kirsty Rea, was admitted to IMU Room 206-01 on 09/10/22 at 2015. Patient/family oriented to hospital policies and general routines including ID bracelet, bed and alarms, visiting hours, pain management, procedures, bathroom and other care routines, personal items, smoking policy, room service/diet, and visiting hours. Information on how to activate the Rapid Response Team has been discussed. Patient/Family are encouraged to report perceived risks to care and to ask questions if they do not understand what they are told or what they should do.
[2022-09-10 21:26] LABS: Troponin I 0.033 ng/mL (0.000-0.034)
--- NOTE | 2022-09-10 22:04 | PM.IMHP ---
H&P: HPI History of Present Illness Date/Time: 09/10/22 22:04 Chief Complaint: Chest pain Narrative: This is an 81-year-old female patient who has a history of end-stage renal disease and has dialysis on Tuesday. The patient had dialysis today and started to complain of some chest heaviness as well shortness of breath. The patient was just discharged from [facility] yesterday. The patient was there for a intracranial hemorrhage and had been hospitalized for 3-4 weeks there. The patient had been on a CPAP at [facility] and had been on oxygen at [facility]. However the patient was discharged to a rehab facility without any prescription for a CPAP machine or oxygen. Her oxygen levels were 80% tile and they placed oxygen on at 3 L. patient is very lethargic. She is a poor historian. She is also very hard of hearing. Her H&H is 8.3 and 25.7. PH is 7.507. PO2 70.6. Sodium is 134. Creatinine 1.4. All 3 troponins are negative. BNP is 1450. She has 1+ leukocyte Estrace WBC 16-20 and 4+ urine protein. Influenza a and B are pending but she is negative for COVID. Patient was only given Zofran. The patient is being admitted to observation status on the date of service of 09/10/2022 Review of Systems Review of Systems: See HPI information obtained from records as the patient is a poor historian. Also she is very hard of hearing. She is very lethargic and has been falling asleep during this interview. All systems reviewed & are unremarkable except as noted in HPI and below Constitutional: Constitutional: Reports as per HPI and Reports no additional constitutional complaints Eyes: Eyes: Reports as per HPI and Reports no additional eye complaints ENT: Reports system reviewed and no additional complaints, except as documented and Reports Normal hearing present Cardiovascular: Cardiovascular: Reports no additional cardiovascular complaints Respiratory: Respiratory: Reports no additional respiratory complaints and Reports no additional respiratory complaints Gastrointestinal: Gastrointestinal: Reports as per HPI and Reports no additional gastrointestinal complaints Musculoskeletal: Musculoskeletal: Reports no additional musculoskeletal complaints Integumentary/Breasts: Skin/Breast: Reports system reviewed and no additional complaints, except as docu and Reports as per HPI Neurologic: Reports system reviewed and no additional complaints, except as documented, Reports as per HPI and Reports Normal hearing present Psychiatric: Psychiatric: Reports no additional psychiatric complaints and Reports as per HPI Endocrine: Endocrine: Reports no additional endocrine complaints Hematologic/Lymphatic: Hematologic/Lymphatic: Reports no additional hematologic/lymphatic complaints Allergic/Immunologic: Allergic/Immunologic: Reports no additional allergic/immunologic complaints FOR[facility]LY [facility] Past Medical History Medical History (Updated 09/10/22 @ 22:31 by Rae Wren NP) End-stage renal disease on hemodialysis Gout Hypertension Surgical History Surgical History (Updated 09/10/22 @ 22:13 by Rae Wren NP) H/O cataract extraction H/O oophorectomy History of colonoscopy Hx of cholecystectomy Hx of parathyroidectomy Partial S/P appendectomy Family History Family History Father Hypertension Family history of elevated blood lipids Sibling Hypertension Family history of elevated blood lipids Social History Social History (Updated 09/10/22 @ 22:15 by Rae Wren NP) Social History: She is and retired. She has a son johnnie and a daughter Agnes listed as her contacts. Is reported that she is a lifelong nonsmoker. Code status full code Smoking status: Never smoker Alcohol intake: current Meds Home Medications and Allergies Home Medications Medication Instructions Recorded Confirmed Typ
[2022-09-11] VITALS (19 sets, daily range): BP systolic 117–146; BP diastolic 44–67; PULSE 80–91; RESP 18–20; TEMP 36.1–36.6; O2SAT 95–99
[2022-09-11 04:00] LABS: Basophils Percent Auto 0.5 % (0.2-1.2); Eosinophils Absolute Auto 0.2 K/mm3 (0-0.3); Hematocrit 23.3 % (37.0-47.0); Hemoglobin 7.5 g/dL (12.0-15.0); Immature Granulocyte Absolute 0.15 K/mm3 (0.00-0.031); Lymphocytes Percent Auto 16.1 % (18.3-44.2); Mean Corpuscular HGB Conc 32.2 g/dl (32-36); Mean Corpuscular Hemoglobin 29.1 pg (26-34); Mean Corpuscular Volume 90.3 fl (80-100); Mean Platelet Volume 9.3 fl (7.4-10.4); Monocytes Absolute Auto 0.9 K/mm3 (0.1-0.6); Monocytes Percent Auto 11.4 % (2.6-8.5); Neutrophils Absolute Auto 5.1 K/mm3 (1.3-6.7); Platelet Count Result 249 k/mm3 (150-375); Red Blood Count 2.58 M/mm3 (4.2-5.4); Red Cell Distribution Width 13.8 % (11.5-14.5); White Blood Count 7.4 K/mm3 (4.5-10.0)
[2022-09-11 04:04] LABS: Influenza B QL RT-PCR Negative (Negative)
[2022-09-11 04:05] LABS: Influenza A QL RT-PCR Negative (Negative)
[2022-09-11 04:08] LABS: Lactic Acid Reflex 0.7 mmol/L (0.7-2.0)
[2022-09-11 04:10] LABS: Alanine Aminotransferase 39 U/L (6-35); Albumin Level 3.2 g/dL (3.5-5.1); Alkaline Phosphatase 89 U/L (38-126); Anion Gap 10 mmol/L (8-16); Aspartate Amino Transferase 35 U/L (14-36); Bilirubin,Total 0.5 mg/dL (0.2-1.3); Blood Urea Nitrogen 28 mg/dL (7-17); Calcium 8.5 mg/dL (8.4-10.2); Carbon Dioxide 29 mmol/L (22-30); Chloride 95 mmol/L (98-107); Estimated CRCL calculation 19 ml/min; Estimated Glomerular Filt Rate 21; Glucose 90 mg/dL (65-110); Potassium 4.1 mmol/L (3.4-5.0); Sodium 134 mmol/L (137-145)
[2022-09-11] MEDS: hydroCHLOROthiazide 12.5 MG CAPSULE PO (09:57)
[2022-09-11] MEDS: LABETALOL HCL 100 MG TABLET 200 MG PO (09:57)
--- NOTE | 2022-09-11 13:03 | P.CONNP_ITS ---
Assessment and Plan Assessment and plan (1) End stage renal disease: Code(s): N18.6 - End stage renal disease Status: Chronic Assessment and Plan: * last HD treatment on Tuesday (09/10/22) * stable electrolytes noted and no evidence of volume overload * plan next HD treatment on Tuesday if remains hospitalized (2) Hypoxia: Code(s): R09.02 - Hypoxemia Status: Acute Assessment and Plan: * suspect admission symptoms (chest pain and altered mental status) due to this issue * was apparently on chronic oxygen therapy while at [facility] * however, on discharge to care home, she was not receiving any oxygen therapy * suspect she may have been hypoxic for at least 12+ hours before her presentation to dialysis yesterday * questionable pneumonia by admission CXR * likely covered by IV ceftriaxone (started for possible UTI) * stable oxygenation of current supplemental oxygen setting * continue supportive therapy (3) Anemia: Code(s): D64.9 - Anemia, unspecified Status: Acute Assessment and Plan: * due to ESRD and recent acute illness * suspect frequent blood draws with last hospitalization at [facility] have nothelped either * Epogen with HD * follow trend of H/H (4) Chest pain: Code(s): R07.9 - Chest pain, unspecified Status: Acute Assessment and Plan: * no further complaints at this time * suspect due to hypoxia rather than ACS * troponin negative x 3 (5) Hypertension: Code(s): I10 - Essential (primary) hypertension Status: Chronic Assessment and Plan: * reasonable control at this time * probably okay to resume home/oral medications since mentation is better * would probably d/c HCTZ given her ESRD status (6) UTI (urinary tract infection): Code(s): N39.0 - Urinary tract infection, site not specified Status: Acute Assessment and Plan: * admission UA highly suggestive * follow up on blood/urine cultures * on empiric antibiotics Long extensive discussion ( greater than 20 min) with the patient's daughters at bedside regarding her end-stage renal disease, hypoxia, need for chronic / supplemental oxygen therapy, and her overall clinical status. They both appeared to voice understanding. Will continue to follow. History of Present Illness Reason for Consult Consult date: 09/11/22 Reason for consult: end stage renal disease Chief Complaint Chief complaint: chest pain, dyspnea History of Present Illness Narrative: The patient is 81-year-old female with a past medical history is outlined below who presented to [facility] room for further evaluation of chest pain and shortness of breath. The patient was just recently discharged from [facility] after suffering an intracranial hemorrhage and was hospitalized there for almost four weeks. during that hospitalization, her known advanced chronic kidney disease progressed to end-stage renal disease and she was initiated on renal replacement therapy / dialysis. She was just discharged on (09/09/2022) and had a and had her 1st outpatient dialysis treatment yesterday. During that dialysis treatment, she was quite agitated and she was noted to be quite hypoxic. 3-4 L of supplemental oxygen was applied which did improve her oxygen saturations but then she developed chest pain. Her dialysis treatment was aborted and she was subsequently transferred to the emergency room for further assessment. Workup and evaluation in the emergency joanne
--- NOTE | 2022-09-11 13:03 | PM.CNNEP ---
Assessment and Plan Assessment and plan (1) End stage renal disease: Code(s): N18.6 - End stage renal disease Status: Chronic Assessment and Plan: last HD treatment on Tuesday (09/10/22) stable electrolytes noted and no evidence of volume overload plan next HD treatment on Tuesday if remains hospitalized (2) Hypoxia: Code(s): R09.02 - Hypoxemia Status: Acute Assessment and Plan: suspect admission symptoms (chest pain and altered mental status) due to this issue was apparently on chronic oxygen therapy while at [facility] however, on discharge to senior living, she was not receiving any oxygen therapy suspect she may have been hypoxic for at least 12+ hours before her presentation to dialysis yesterday questionable pneumonia by admission CXR likely covered by IV ceftriaxone (started for possible UTI) stable oxygenation of current supplemental oxygen setting continue supportive therapy (3) Anemia: Code(s): D64.9 - Anemia, unspecified Status: Acute Assessment and Plan: due to ESRD and recent acute illness suspect frequent blood draws with last hospitalization at [facility] have nothelped either Epogen with HD follow trend of H/H (4) Chest pain: Code(s): R07.9 - Chest pain, unspecified Status: Acute Assessment and Plan: no further complaints at this time suspect due to hypoxia rather than ACS troponin negative x 3 (5) Hypertension: Code(s): I10 - Essential (primary) hypertension Status: Chronic Assessment and Plan: reasonable control at this time probably okay to resume home/oral medications since mentation is better would probably d/c HCTZ given her ESRD status (6) UTI (urinary tract infection): Code(s): N39.0 - Urinary tract infection, site not specified Status: Acute Assessment and Plan: admission UA highly suggestive follow up on blood/urine cultures on empiric antibiotics Long extensive discussion ( greater than 20 min) with the patient's daughters at bedside regarding her end-stage renal disease, hypoxia, need for chronic / supplemental oxygen therapy, and her overall clinical status. They both appeared to voice understanding. Will continue to follow. History of Present Illness Reason for Consult Consult date: 09/11/22 Reason for consult: end stage renal disease Chief Complaint Chief complaint: chest pain, dyspnea History of Present Illness Narrative: The patient is 81-year-old female with a past medical history is outlined below who presented to [facility] Emergency room for further evaluation of chest pain and shortness of breath. The patient was just recently discharged from [facility] after suffering an intracranial hemorrhage and was hospitalized there for almost four weeks. during that hospitalization, her known advanced chronic kidney disease progressed to end-stage renal disease and she was initiated on renal replacement therapy / dialysis. She was just discharged on (09/09/2022) and had a and had her 1st outpatient dialysis treatment yesterday. During that dialysis treatment, she was quite agitated and she was noted to be quite hypoxic. 3-4 L of supplemental oxygen was applied which did improve her oxygen saturations but then she developed chest pain. Her dialysis treatment was aborted and she was subsequently transferred to the emergency room for further assessment. Workup and evaluation in the emergency room demonstrated oxygen saturations of 80% on room air in association with lethargy. Routine blood test demonstrated labs consistent with a known history of end-stage renal disease and her EKG was not significant for any type of ischemic changes. Her troponins were not indicative of any acute coronary syndrome either. Ft with application of supplemental oxygen, her O2 sats improved to the 95-99% range on 4 L. by the time o
--- NOTE | 2022-09-11 15:02 | PM.IMPN ---
Progress Note: A&P Assessment and Plan (1) Chest pain: Code(s): R07.9 - Chest pain, unspecified Status: Acute Assessment and Plan: -patient no longer complains of any chest pain. -troponins are negative x3. - The patient may be moved to a medical-surgical floor and off of IMU. -EKG was read as the following SINUS RHYTHM POSSIBLE LEFT ATRIAL ENLARGEMENT BORDERLINE T WAVE ABNORMALITY- ANTERIOR LEADS BASELINE ARTIFACT- I, II, III, AVL, AVF, V1-V2, V6 BORDERLINE ECG COMPARED TO ECG 08/14/2022 23:23:55 NO SIGNIFICANT CHANGES Electronically Signed On 09-10-2022 16:20:24 DIGITAL CARTOGRAPHER by Edward Castaneda -patient may be complaining of chest pain due to dialysis or due to the hypoxia. Chest x-ray was read as1. New elevation of the right hemidiaphragm with right infrahilar opacities which could represent associated atelectasis or pneumonia. However the patient does not have a fever at this point and does not have any white count elevation. 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 The patient was at dialysis today when she developed chest pain. -nephrology has been consulted. (3) Hypertension: Code(s): I10 - Essential (primary) hypertension Status: Chronic Assessment and Plan: -it looks like the patient is on hydrochlorothiazide labetalol and nifedipine. The patient is too lethargic to take her medication at this point. Her blood pressure is 125/61. -her home meds are not reconciled at this point. So I will do p.r.n. hydralazine. (4) Hypoxia: Code(s): R09.02 - Hypoxemia Status: Acute Assessment and Plan: -it was reported that the patient had been on oxygen at [facility] and on a CPAP. -I did order a CPAP and a home O2 evaluation. (5) UTI (urinary tract infection): Code(s): N39.0 - Urinary tract infection, site not specified Status: Acute Assessment and Plan: -patient was started on Rocephin. Tailor antibiotics to cultures. -urine and blood cultures are pending. (6) Gout: Code(s): M10.9 - Gout, unspecified Status: Acute Assessment and Plan: -the patient is on any medication at this time. Subjective Date/time seen: 09/11/22 15:02 Chest pain HPI-Narrative: This is an 81-year-old female patient who has a history of end-stage renal disease and has dialysis on Tuesday.? The patient had dialysis today and started to complain of some chest heaviness as well shortness of breath.? The patient was just discharged from [facility] yesterday.? The patient was there for a intracranial hemorrhage and had been hospitalized for 3-4 weeks there.? The patient had been on a CPAP at [facility] and had been on oxygen at [facility].? However the patient was discharged to a rehab facility without any prescription for a CPAP machine or oxygen.? Her oxygen levels were 80% tile and they placed oxygen on at 3 L. patient is very lethargic.? She is a poor historian.? She is also very hard of hearing.? Her H&H is 8.3 and 25.7.? PH is 7.507.? PO2 70.6.? Sodium is 134.? Creatinine 1.4.? All 3 troponins are negative.? BNP is 1450.? She has 1+ leukocyte Estrace WBC 16-20 and 4+ urine protein.? Influenza a and
[2022-09-12] VITALS (19 sets, daily range): BP systolic 94–153; BP diastolic 46–63; PULSE 76–91; RESP 17–28; TEMP 36.5–37.2; O2SAT 95–99
[2022-09-12 05:03] LABS: Hematocrit 21.6 % (37.0-47.0); Mean Corpuscular HGB Conc 31.5 g/dl (32-36); Mean Corpuscular Hemoglobin 29.2 pg (26-34); Mean Corpuscular Volume 92.7 fl (80-100); Mean Platelet Volume 9.2 fl (7.4-10.4); Platelet Count Result 278 k/mm3 (150-375); Red Blood Count 2.33 M/mm3 (4.2-5.4); White Blood Count 7.3 K/mm3 (4.5-10.0)
[2022-09-12 05:05] LABS: Hemoglobin 6.8 g/dL (12.0-15.0)
[2022-09-12 05:15] LABS: Anion Gap 7 mmol/L (8-16); Blood Urea Nitrogen 46 mg/dL (7-17); Calcium 8.4 mg/dL (8.4-10.2); Carbon Dioxide 28 mmol/L (22-30); Chloride 92 mmol/L (98-107); Estimated CRCL calculation 12 ml/min; Estimated Glomerular Filt Rate 13; Glucose 89 mg/dL (65-110); Phosphorus 3.9 mg/dL (2.5-4.5); Potassium 3.7 mmol/L (3.4-5.0); Sodium 127 mmol/L (137-145)
[2022-09-12] MEDS: LABETALOL HCL 100 MG TABLET 200 MG PO (09:34)
[2022-09-12] MEDS: hydroCHLOROthiazide 12.5 MG CAPSULE PO (09:34)
[2022-09-12 12:08] LABS: Hematocrit 20.7 % (37.0-47.0); Hemoglobin 6.6 g/dL (12.0-15.0)
--- NOTE | 2022-09-12 12:37 | PM.PNNEP ---
Progress Note: A&P Assessment and Plan (1) End stage renal disease: Code(s): N18.6 - End stage renal disease Status: Chronic Assessment and Plan: last HD treatment on Tuesday (09/10/22) HD tomorrow and continue outpatient schedule of M/W/F follow electrolytes, volume status, and clearance (2) Hypoxia: Code(s): R09.02 - Hypoxemia Status: Acute Assessment and Plan: suspect admission symptoms (chest pain and altered mental status) due to this issue was apparently on chronic oxygen therapy while at [facility] however, on discharge to longterm, she was not receiving any oxygen therapy suspect she may have been hypoxic for at least 12+ hours before her presentation to dialysis on Tuesday (09/10/22) questionable pneumonia by admission CXR however, covered by IV ceftriaxone (started for possible UTI) stable oxygenation of current supplemental oxygen setting continue supportive therapy (3) Anemia: Code(s): D64.9 - Anemia, unspecified Status: Acute Assessment and Plan: low H/H noted this AM due to ESRD and recent acute illness suspect frequent blood draws with last hospitalization at [facility] may be contributing Epogen with HD PRBC transfusion planned with dialysis tomorrow check iron studies -- however, hesitant to give if she does indeed have pneumonia follow trend of H/H (4) Chest pain: Code(s): R07.9 - Chest pain, unspecified Status: Acute Assessment and Plan: no further complaints at this time suspect due to hypoxia rather than ACS troponin negative x 3 (5) Hypertension: Code(s): I10 - Essential (primary) hypertension Status: Chronic Assessment and Plan: reasonable control at this time discharge summary from [facility] indicates she was on amlodipine (10mg qday), losartan (100mg qday), coreg (25mg bid), hydralazine (100mg tid), and clonidine (O.2mg/24hr patch) not currently on this regimen follow trend of hemodynamics for now perhaps dialysis is helping keep BP stable (6) UTI (urinary tract infection): Code(s): N39.0 - Urinary tract infection, site not specified Status: Acute Assessment and Plan: admission UA highly suggestive blood/urine cultures so far negative on empiric antibiotics Will continue to follow. Subjective Date/time seen: 09/12/22 12:37 Overall, she seems to be doing better in general since admission; mentation is back to baseline and has stable oxygen saturations with use of supplemental oxygen; noted drop in H/H by AM labs (and confirmed by repeat testing); no other issues/events overnight or earlier this AM. Exam Narrative: General: elderly frail female in NAD Heart: normal S1 and S2; no rub Lungs: coarse breath sounds Abdomen: soft, nontender, nondistended, positive bowel sounds Extremities: no cyanosis or clubbing; no edema Skin: warm and dry Objective Data Vital Signs Vital Signs: Vital Signs Temp Pulse Resp BP Pulse Ox O2 Del Method O2 Flow Rate 09/12/22 12:00 36.9 C 79 24 H 94/46 L 99 09/12/22 10:00 76 09/12/22 08:00 84 09/12/22 08:00 96 Nasal Cannula 3 09/12/22 09:50 97 Nasal Cannula 3 09/12/22 09:34 89 09/12/22 08:00 36.6 C 90 20 131/59 L 99 09/12/22 06:00 83 09/12/22 04:00 84 09/12/22 04:00 98 Nasal Cannula 3 09/12/22 02:00 86 09/12/22 00:00 85 09/11/22 22:00 85 09/11/22 20:00 87 09/12/22 00:00 99 Nasal Cannula 3 09/11/22 20:00 99 Nasal Cannula 3 09/11/22 23:20 36.6 C 84 18 139/62 99 09/11/22 20:54 36.4 C 87 18 143/51 H 99 09/11/22 18:00 86 Intake/Output Intake/Output: Intake & Output 09/09/22 09/10/22 09/11/22 09/12/22 23:59 23:59 23:59 23:59 Intake Total 1140 950 Balance 1140 950 Meds/Results Medications: Active Medications Generic Name Dose
--- NOTE | 2022-09-12 12:37 | P.PNNP_ITS ---
Progress Note: A&P Assessment and Plan (1) End stage renal disease: Code(s): N18.6 - End stage renal disease Status: Chronic Assessment and Plan: * last HD treatment on Tuesday (09/10/22) * HD tomorrow and continue outpatient schedule of M/W/F * follow electrolytes, volume status, and clearance (2) Hypoxia: Code(s): R09.02 - Hypoxemia Status: Acute Assessment and Plan: * suspect admission symptoms (chest pain and altered mental status) due to this issue * was apparently on chronic oxygen therapy while at [facility] * however, on discharge to assisted, she was not receiving any oxygen therapy * suspect she may have been hypoxic for at least 12+ hours before her presentation to dialysis on Tuesday (09/10/22) * questionable pneumonia by admission CXR * however, covered by IV ceftriaxone (started for possible UTI) * stable oxygenation of current supplemental oxygen setting * continue supportive therapy (3) Anemia: Code(s): D64.9 - Anemia, unspecified Status: Acute Assessment and Plan: * low H/H noted this AM * due to ESRD and recent acute illness * suspect frequent blood draws with last hospitalization at [facility] may be contributing * Epogen with HD * PRBC transfusion planned with dialysis tomorrow * check iron studies -- however, hesitant to give if she does indeed have pneumonia * follow trend of H/H (4) Chest pain: Code(s): R07.9 - Chest pain, unspecified Status: Acute Assessment and Plan: * no further complaints at this time * suspect due to hypoxia rather than ACS * troponin negative x 3 (5) Hypertension: Code(s): I10 - Essential (primary) hypertension Status: Chronic Assessment and Plan: * reasonable control at this time * discharge summary from [facility] indicates she was on amlodipine (10mg qday), losartan (100mg qday), coreg (25mg bid), hydralazine (100mg tid), and clonidine (O.2mg/24hr patch) * not currently on this regimen * follow trend of hemodynamics for now * perhaps dialysis is helping keep BP stable (6) UTI (urinary tract infection): Code(s): N39.0 - Urinary tract infection, site not specified Status: Acute Assessment and Plan: * admission UA highly suggestive * blood/urine cultures so far negative * on empiric antibiotics Will continue to follow. Subjective Date/time seen: 09/12/22 12:37 Overall, she seems to be doing better in general since admission; mentation is back to baseline and has stable oxygen saturations with use of supplemental oxygen; noted drop in H/H by AM labs (and confirmed by repeat testing); no other issues/events overnight or earlier this AM. Exam Narrative: General: elderly frail female in NAD Heart: normal S1 and S2; no rub Lungs: coarse breath sounds Abdomen: soft, nontender, nondistended, positive bowel sounds Extremities: no cyanosis or clubbing; no edema Skin: warm and dry Objective Data Vital Signs Vital Signs: Vital Signs Temp Pulse Resp BP Pulse Ox O2 Del Method O2 Flow Rate 09/12/22 12:00 36.9 C 79 24 H 94/46 L 99 09/12/22 10:00 76 09/12/22 08:00 84 09/12/22 08:00 96 Nasal Cannula 3 09/12/22 09:50 97 Nasal Cannula 3 09/12/22 09:34 89 09/12/22 08:00 36.6 C 90 20 131/59 L 99
--- NOTE | 2022-09-12 13:21 | PCOTNOTE ---
Attempted OT evaluation; per nurse report, patients blood pressure is too low for evaluation. Will follow up tomorrow.
--- NOTE | 2022-09-12 13:34 | PCPTNOTE ---
Nursing reports patient's blood pressure is too low to attempy evaluation at this time, will attempt again tomorrow.
[2022-09-12] MEDS: TUBING, BLOOD PLUM PUMP TUBING 1 EACH XX (13:50)
[2022-09-12] MEDS: SODIUM CHLORIDE 0.9% IV 250 ML 30 ML IV CONT (13:50)
--- NOTE | 2022-09-12 14:31 | PM.IMPN ---
Progress Note: A&P Assessment and Plan (1) Chest pain: Code(s): R07.9 - Chest pain, unspecified Status: Acute Assessment and Plan: -patient no longer complains of any chest pain. -troponins are negative x3. - The patient may be moved to a medical-surgical floor and off of IMU. -EKG was read as the following SINUS RHYTHM POSSIBLE LEFT ATRIAL ENLARGEMENT BORDERLINE T WAVE ABNORMALITY- ANTERIOR LEADS BASELINE ARTIFACT- I, II, III, AVL, AVF, V1-V2, V6 BORDERLINE ECG COMPARED TO ECG 08/14/2022 23:23:55 NO SIGNIFICANT CHANGES Electronically Signed On 09-10-2022 16:20:24 ANIMAL DAYCARE PROVIDER by Edward Castaneda -patient may be complaining of chest pain due to dialysis or due to the hypoxia. Chest x-ray was read as1. New elevation of the right hemidiaphragm with right infrahilar opacities which could represent associated atelectasis or pneumonia. However the patient does not have a fever at this point and does not have any white count elevation. 09/12/2022 interval history:?81-year-old female with history of end-stage renal disease on hemodialysis presented emergency department with a complaint of chest pain after her dialysis session, patient? 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 also patient's friend is present in the room and states patient is doing much better than last time she saw her, (2) End-stage renal disease on hemodialysis: Code(s): N18.6 - End stage renal disease; Z99.2 - Dependence on renal dialysis Status: Acute Assessment and Plan: -patient has end-stage renal disease and is on dialysis Tuesday. The patient was at dialysis today when she developed chest pain. -nephrology has been consulted. (3) Hypertension: Code(s): I10 - Essential (primary) hypertension Status: Chronic Assessment and Plan: -it looks like the patient is on hydrochlorothiazide labetalol and nifedipine. The patient is too lethargic to take her medication at this point. Her blood pressure is 125/61. -her home meds are not reconciled at this point. So I will do p.r.n. hydralazine. (4) Hypoxia: Code(s): R09.02 - Hypoxemia Status: Acute Assessment and Plan: -it was reported that the patient had [facility] and on a CPAP. -I did order a CPAP and a home O2 evaluation. (5) UTI (urinary tract infection): Code(s): N39.0 - Urinary tract infection, site not specified Status: Acute Assessment and Plan: -patient was started on Rocephin. Tailor antibiotics to cultures. -urine and blood cultures are pending. (6) Gout: Code(s): M10.9 - Gout, unspecified Status: Acute Assessment and Plan: -the patient is on any medication at this time. Subjective Date/time seen: 09/12/22 14:31 -patient no longer complains of any chest pain.? -troponins are negative x3. - The patient may be moved to a medical-surgical floor and off of IMU. -EKG was read as the following SINUS RHYTHM POSSIBLE LEFT ATRIAL ENLARGEMENT BORDERLINE T WAVE ABNORMALITY- ANTERIOR LEADS BASELINE ARTIFACT- I, II, III, AVL, AVF, V1-V2, V6 BORDERLINE ECG COMPARED TO ECG 08/14/2022 23:23:55 NO SIGNIFICANT CHANGES Electronically Signed On 09-10-2022 16:20:24 ANIMAL DAYCARE PROVIDER by Edward Castaneda -patient may be complaining of chest pain due to dialysis or due to the hypoxia. Chest x-ray was read as1. New elevation of the right hemidiaphragm with right infrahilar opacities which could represent associated atelectasis or pneumonia.? However the patient does not have a fever at this point and d
[2022-09-12 17:37] LABS: Hematocrit 23.1 % (37.0-47.0); Hemoglobin 7.6 g/dL (12.0-15.0)
[2022-09-12 23:41] LABS: Hematocrit 23.5 % (37.0-47.0); Hemoglobin 7.9 g/dL (12.0-15.0)
[2022-09-13] VITALS (34 sets, daily range): BP systolic 102–152; BP diastolic 53–77; PULSE 84–112; RESP 16–20; TEMP 36–37.2; O2SAT 95–100; BMI 21.2
[2022-09-13 05:05] LABS: Hematocrit 23.6 % (37.0-47.0); Hemoglobin 7.9 g/dL (12.0-15.0)
[2022-09-13 05:17] LABS: Albumin Level 3.1 g/dL (3.5-5.1); Anion Gap 10 mmol/L (8-16); Blood Urea Nitrogen 55 mg/dL (7-17); Calcium 8.6 mg/dL (8.4-10.2); Carbon Dioxide 26 mmol/L (22-30); Chloride 89 mmol/L (98-107); Estimated CRCL calculation 10 ml/min; Estimated Glomerular Filt Rate 11; Glucose 90 mg/dL (65-110); Phosphorus 4.5 mg/dL (2.5-4.5); Potassium 3.5 mmol/L (3.4-5.0); Sodium 125 mmol/L (137-145)
[2022-09-13 05:34] LABS: Iron 45 ug/dL (37-170)
[2022-09-13 05:44] LABS: Percent Iron Saturation 22 % (20-50)
[2022-09-13 06:05] LABS: Hepatitis B Surface Antigen Negative (Negative)
[2022-09-13 06:53] LABS: Hepatitis B Surface Anti Res Positive
--- NOTE | 2022-09-13 13:40 | P.PNNP_ITS ---
Progress Note: A&P Assessment and Plan (1) End stage renal disease: Code(s): N18.6 - End stage renal disease Status: Chronic Assessment and Plan: * HD today and continue outpatient schedule of M/W/ * follow electrolytes, volume status, and clearance (2) Hypoxia: Code(s): R09.02 - Hypoxemia Status: Acute Assessment and Plan: * suspect admission symptoms (chest pain and altered mental status) due to this issue * was apparently on chronic oxygen therapy while at [facility] * however, [facility], she was not receiving any oxygen therapy * suspect she may have been hypoxic for at least 12+ hours before her presentation to dialysis on Tuesday (09/10/22) * questionable pneumonia by admission CXR * however, covered by IV ceftriaxone (started for possible UTI) * stable oxygenation of current supplemental oxygen setting * continue supportive therapy (3) Anemia: Code(s): D64.9 - Anemia, unspecified Status: Acute Assessment and Plan: * low H/H noted by 09/12/22 AM labs * due to ESRD and recent acute illness * suspect frequent blood draws with last hospitalization at [facility] may be contributing * Epogen with HD * s/p PRBC transfusion * adequate iron studiesby anemia studies * follow trend of H/H (4) Chest pain: Code(s): R07.9 - Chest pain, unspecified Status: Acute Assessment and Plan: * no further complaints at this time * suspect due to hypoxia rather than ACS * troponin negative x 3 (5) Hypertension: Code(s): I10 - Essential (primary) hypertension Status: Chronic Assessment and Plan: * reasonable control at this time * discharge summary from [facility] indicates she was on amlodipine (10mg qday), losartan (100mg qday), coreg (25mg bid), hydralazine (100mg tid), and clonidine (0.2mg/24hr patch) * not currently on this regimen but BP controlled * follow trend of hemodynamics for now * perhaps dialysis is helping keep BP stable (6) UTI (urinary tract infection): Code(s): N39.0 - Urinary tract infection, site not specified Status: Acute Assessment and Plan: * admission UA highly suggestive * blood/urine cultures so far negative * on empiric antibiotics Will continue to follow. Subjective Date/time seen: 09/13/22 13:40 Tolerating dialysis treatment at the time of my visit (seen on HD treatment at 1:30PM); s/p PRBC transfusion yesterday with appropriate incrementation of H/H; respiratory status as well as mentation remain stable if not better at this time; no other issues/events overnight or earlier this morning. Exam Narrative: General: elderly frail female in NAD Heart: normal S1 and S2; no rub Lungs: coarse breath sounds Abdomen: soft, nontender, nondistended, positive bowel sounds Extremities: no cyanosis or clubbing; no edema Skin: warm and dry Objective Data Vital Signs Vital Signs: Vital Signs Temp Pulse Resp BP Pulse Ox O2 Del Method O2 Flow Rate 09/13/22 13:30 101 H 120/67 09/13/22 13:15 99 113/59 L 09/13/22 13:00 99 132/72 09/13/22 12:45 100 129/68 09/13/22 12:30 103 H 119/57 L 09/13/22 12:15 102 H 128/69 09/13/22 12:00 104 H 136/70 09/13/22 11:45 100 133/53 L 09/13/22 11:30 98 133
--- NOTE | 2022-09-13 13:40 | PM.PNNEP ---
Progress Note: A&P Assessment and Plan (1) End stage renal disease: Code(s): N18.6 - End stage renal disease Status: Chronic Assessment and Plan: HD today and continue outpatient schedule of M/W/F follow electrolytes, volume status, and clearance (2) Hypoxia: Code(s): R09.02 - Hypoxemia Status: Acute Assessment and Plan: suspect admission symptoms (chest pain and altered mental status) due to this issue was apparently on chronic oxygen therapy while at [facility] however, on discharge to [facility], she was not receiving any oxygen therapy suspect she may have been hypoxic for at least 12+ hours before her presentation to dialysis on Tuesday (09/10/22) questionable pneumonia by admission CXR however, covered by IV ceftriaxone (started for possible UTI) stable oxygenation of current supplemental oxygen setting continue supportive therapy (3) Anemia: Code(s): D64.9 - Anemia, unspecified Status: Acute Assessment and Plan: low H/H noted by 09/12/22 AM labs due to ESRD and recent acute illness suspect frequent blood draws with last hospitalization at [facility] may be contributing Epogen with HD s/p PRBC transfusion adequate iron studiesby anemia studies follow trend of H/H (4) Chest pain: Code(s): R07.9 - Chest pain, unspecified Status: Acute Assessment and Plan: no further complaints at this time suspect due to hypoxia rather than ACS troponin negative x 3 (5) Hypertension: Code(s): I10 - Essential (primary) hypertension Status: Chronic Assessment and Plan: reasonable control at this time discharge summary from [facility] indicates she was on amlodipine (10mg qday), losartan (100mg qday), coreg (25mg bid), hydralazine (100mg tid), and clonidine (0.2mg/24hr patch) not currently on this regimen but BP controlled follow trend of hemodynamics for now perhaps dialysis is helping keep BP stable (6) UTI (urinary tract infection): Code(s): N39.0 - Urinary tract infection, site not specified Status: Acute Assessment and Plan: admission UA highly suggestive blood/urine cultures so far negative on empiric antibiotics Will continue to follow. Subjective Date/time seen: 09/13/22 13:40 Tolerating dialysis treatment at the time of my visit (seen on HD treatment at 1:30PM); s/p PRBC transfusion yesterday with appropriate incrementation of H/H; respiratory status as well as mentation remain stable if not better at this time; no other issues/events overnight or earlier this morning. Exam Narrative: General: elderly frail female in NAD Heart: normal S1 and S2; no rub Lungs: coarse breath sounds Abdomen: soft, nontender, nondistended, positive bowel sounds Extremities: no cyanosis or clubbing; no edema Skin: warm and dry Objective Data Vital Signs Vital Signs: Vital Signs Temp Pulse Resp BP Pulse Ox O2 Del Method O2 Flow Rate 09/13/22 13:30 101 H 120/67 09/13/22 13:15 99 113/59 L 09/13/22 13:00 99 132/72 09/13/22 12:45 100 129/68 09/13/22 12:30 103 H 119/57 L 09/13/22 12:15 102 H 128/69 09/13/22 12:00 104 H 136/70 09/13/22 11:45 100 133/53 L 09/13/22 11:30 98 133/70 09/13/22 11:15 100 128/69 09/13/22 11:00 104 H 123/65 09/13/22 10:45 102 H 131/68 09/13/22 10:30 94 133/68 09/13/22 10:12 90 145/65 H 09/13/22 10:02 3 09/13/22 10:04 36.9 C 93 16 150/72 H 09/13/22 08:17 36.6 C 100 149/77 H 100 09/13/22 07:20 Nasal Cannula 3.5 09/13/22 07:35 Nasal Cannula 3.5 09/13/22 06:00 93 09/13/22 04:00 96 Nasal Cannula 3 09/13/22 04:00 36.7 C 85 18 152/57 H 96 09/13/22 04:00 87 09/13/22 02:00 84 09/13/22 00:00 85 09/13/22 00:00 97 Nasal Cannula 3 09/12/22 23:40 36.6 C 81
[2022-09-13] MEDS: LABETALOL HCL 100 MG TABLET 200 MG PO (14:21)
[2022-09-13 14:24] LABS: Hematocrit 30.2 % (37.0-47.0); Hemoglobin 9.7 g/dL (12.0-15.0)
--- NOTE | 2022-09-13 18:38 | PM.IMPN ---
Progress Note: A&P Assessment and Plan (1) Chest pain: Code(s): R07.9 - Chest pain, unspecified Status: Acute Assessment and Plan: -patient no longer complains of any chest pain. -troponins are negative x3. - The patient may be moved to a medical-surgical floor and off of IMU. -EKG was read as the following SINUS RHYTHM POSSIBLE LEFT ATRIAL ENLARGEMENT BORDERLINE T WAVE ABNORMALITY- ANTERIOR LEADS BASELINE ARTIFACT- I, II, III, AVL, AVF, V1-V2, V6 BORDERLINE ECG COMPARED TO ECG 08/14/2022 23:23:55 NO SIGNIFICANT CHANGES Electronically Signed On 09-10-2022 16:20:24 PATIENT RELATIONS SPECIALIST by Edward Castaneda -patient may be complaining of chest pain due to dialysis or due to the hypoxia. Chest x-ray was read as1. New elevation of the right hemidiaphragm with right infrahilar opacities which could represent associated atelectasis or pneumonia. However the patient does not have a fever at this point and does not have any white count elevation. 09/13/2022 interval history:?81-year-old female with history of end-stage renal disease on hemodialysis presented emergency department with a complaint of chest pain after her dialysis session, patient? 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 (2) End-stage renal disease on hemodialysis: Code(s): N18.6 - End stage renal disease; Z99.2 - Dependence on renal dialysis Status: Acute Assessment and Plan: -patient has end-stage renal disease and is on dialysis Tuesday. The patient was at dialysis today when she developed chest pain. -nephrology has been consulted. (3) Hypertension: Code(s): I10 - Essential (primary) hypertension Status: Chronic Assessment and Plan: -it looks like the patient is on hydrochlorothiazide labetalol and nifedipine. The patient is too lethargic to take her medication at this point. Her blood pressure is 125/61. -her home meds are not reconciled at this point. So I will do p.r.n. hydralazine. (4) Hypoxia: Code(s): R09.02 - Hypoxemia Status: Acute Assessment and Plan: -it was reported that the patient had [facility] and on a CPAP. -I did order a CPAP and a home O2 evaluation. (5) UTI (urinary tract infection): Code(s): N39.0 - Urinary tract infection, site not specified Status: Acute Assessment and Plan: -patient was started on Rocephin. Tailor antibiotics to cultures. -urine and blood cultures are pending. (6) Gout: Code(s): M10.9 - Gout, unspecified Status: Acute Assessment and Plan: -the patient is on any medication at this time. Subjective Date/time seen: 09/13/22 18:38 09/13/2022 interval history:?81-year-old female with history of end-stage renal disease on hemodialysis presented emergency department with a complaint of chest pain after her dialysis session, patient? 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
[2022-09-13 20:55] LABS: Hemoglobin 8.2 g/dL (12.0-15.0)
[2022-09-14] VITALS (14 sets, daily range): BP systolic 126–152; BP diastolic 58–73; PULSE 74–96; RESP 18–24; TEMP 36.2–36.6; O2SAT 95–100
[2022-09-14 05:16] LABS: Hematocrit 27.5 % (37.0-47.0); Hemoglobin 8.9 g/dL (12.0-15.0); Mean Corpuscular HGB Conc 32.4 g/dl (32-36); Mean Corpuscular Hemoglobin 30.5 pg (26-34); Mean Corpuscular Volume 94.2 fl (80-100); Mean Platelet Volume 9.1 fl (7.4-10.4); Platelet Count Result 244 k/mm3 (150-375); Red Blood Count 2.92 M/mm3 (4.2-5.4); Red Cell Distribution Width 14.3 % (11.5-14.5); White Blood Count 9.2 K/mm3 (4.5-10.0)
[2022-09-14 05:31] LABS: Albumin Level 3.2 g/dL (3.5-5.1); Anion Gap 9 mmol/L (8-16); Blood Urea Nitrogen 25 mg/dL (7-17); Calcium 8.6 mg/dL (8.4-10.2); Carbon Dioxide 30 mmol/L (22-30); Chloride 95 mmol/L (98-107); Estimated CRCL calculation 15 ml/min; Estimated Glomerular Filt Rate 16; Glucose 105 mg/dL (65-110); Phosphorus 3.2 mg/dL (2.5-4.5); Potassium 3.7 mmol/L (3.4-5.0); Sodium 134 mmol/L (137-145)
[2022-09-14] MEDS: LABETALOL HCL 100 MG TABLET 200 MG PO (09:12)
--- NOTE | 2022-09-14 11:09 | PM.PNNEP ---
Progress Note: A&P Assessment and Plan (1) End stage renal disease: Code(s): N18.6 - End stage renal disease Status: Chronic Assessment and Plan: HD tomorrow and continue outpatient schedule of M/W/F follow electrolytes, volume status, and clearance (2) Hypoxia: Code(s): R09.02 - Hypoxemia Status: Acute Assessment and Plan: suspect admission symptoms (chest pain and altered mental status) due to this issue was apparently on chronic oxygen therapy while at [facility] however, on discharge to [facility], she was not receiving any oxygen therapy suspect she may have been hypoxic for at least 12+ hours before her presentation to dialysis on Tuesday (09/10/22) questionable pneumonia by admission CXR however, covered by IV ceftriaxone (started for possible UTI) stable oxygenation of current supplemental oxygen setting continue supportive therapy (3) Anemia: Code(s): D64.9 - Anemia, unspecified Status: Acute Assessment and Plan: low H/H noted by 09/12/22 AM labs due to ESRD and recent acute illness suspect frequent blood draws with last hospitalization at [facility] may be contributing Epogen with HD s/p PRBC transfusion adequate iron studiesby anemia studies follow trend of H/H (4) Chest pain: Code(s): R07.9 - Chest pain, unspecified Status: Acute Assessment and Plan: no further complaints at this time suspect due to hypoxia rather than ACS troponin negative x 3 (5) Hypertension: Code(s): I10 - Essential (primary) hypertension Status: Chronic Assessment and Plan: reasonable control at this time discharge summary from [facility] indicates she was on amlodipine (10mg qday), losartan (100mg qday), coreg (25mg bid), hydralazine (100mg tid), and clonidine (0.2mg/24hr patch) not currently on this regimen but BP controlled follow trend of hemodynamics for now perhaps dialysis is helping keep BP stable (6) UTI (urinary tract infection): Code(s): N39.0 - Urinary tract infection, site not specified Status: Acute Assessment and Plan: admission UA highly suggestive blood/urine cultures so far negative on empiric antibiotics Will continue to follow. Subjective Date/time seen: 09/14/22 11:09 Tolerated dialysis treatment yesterday without any issues or problems; sitting up in chair upon my visit and in no apparent distress; major complaint is that of fatigue/weakness; no issues overnight or earlier this AM. Exam Narrative: General: elderly frail female in NAD Heart: normal S1 and S2; no rub Lungs: coarse breath sounds Abdomen: soft, nontender, nondistended, positive bowel sounds Extremities: no cyanosis or clubbing; no edema Skin: warm and intact Objective Data Vital Signs Vital Signs: Vital Signs Temp Pulse Resp BP Pulse Ox O2 Del Method O2 Flow Rate 09/14/22 10:00 82 09/14/22 08:00 90 96 Nasal Cannula 3 09/14/22 08:00 90 09/14/22 09:12 74 09/14/22 07:54 36.5 C 91 24 H 144/58 H 96 09/14/22 06:00 91 09/14/22 04:00 36.4 C 90 20 132/61 100 09/14/22 04:00 90 09/14/22 03:48 89 19 98 Nasal Cannula 3 09/14/22 01:57 91 09/14/22 00:00 96 09/13/22 23:46 92 20 99 Nasal Cannula 3 09/13/22 23:03 36.4 C 92 20 125/61 99 09/13/22 22:00 89 09/13/22 20:00 92 09/13/22 20:00 37.2 C 90 20 127/56 L 98 09/13/22 20:00 94 95 Nasal Cannula 3 09/13/22 18:00 95 09/13/22 16:00 97 Nasal Cannula 3 09/13/22 16:00 99 09/13/22 14:00 102 H 09/13/22 13:49 36.9 C 100 20 137/68 09/13/22 13:47 106 H 113/60 09/13/22 13:45 106 H 102/57 L 09/13/22 16:08 36.5 C 86 20 138/63 95 09/13/22 14:21 112 H 09/13/22 13:30 101 H 120/67 09/13/22 13:15 99 113/59 L Intake/Output Intake/Outp
--- NOTE | 2022-09-14 11:09 | P.PNNP_ITS ---
Progress Note: A&P Assessment and Plan (1) End stage renal disease: Code(s): N18.6 - End stage renal disease Status: Chronic Assessment and Plan: * HD tomorrow and continue outpatient schedule of M// * follow electrolytes, volume status, and clearance (2) Hypoxia: Code(s): R09.02 - Hypoxemia Status: Acute Assessment and Plan: * suspect admission symptoms (chest pain and altered mental status) due to this issue * was apparently on chronic oxygen therapy while at [facility] * however, on discharge to intermediate, she was not receiving any oxygen therapy * suspect she may have been hypoxic for at least 12+ hours before her presentation to dialysis on Tuesday (09/10/22) * questionable pneumonia by admission CXR * however, covered by IV ceftriaxone (started for possible UTI) * stable oxygenation of current supplemental oxygen setting * continue supportive therapy (3) Anemia: Code(s): D64.9 - Anemia, unspecified Status: Acute Assessment and Plan: * low H/H noted by 09/12/22 AM labs * due to ESRD and recent acute illness * suspect frequent blood draws with last hospitalization at [facility] may be contributing * Epogen with HD * s/p PRBC transfusion * adequate iron studiesby anemia studies * follow trend of H/H (4) Chest pain: Code(s): R07.9 - Chest pain, unspecified Status: Acute Assessment and Plan: * no further complaints at this time * suspect due to hypoxia rather than ACS * troponin negative x 3 (5) Hypertension: Code(s): I10 - Essential (primary) hypertension Status: Chronic Assessment and Plan: * reasonable control at this time * discharge summary from [facility] indicates she was on amlodipine (10mg qday), losartan (100mg qday), coreg (25mg bid), hydralazine (100mg tid), and clonidine (0.2mg/24hr patch) * not currently on this regimen but BP controlled * follow trend of hemodynamics for now * perhaps dialysis is helping keep BP stable (6) UTI (urinary tract infection): Code(s): N39.0 - Urinary tract infection, site not specified Status: Acute Assessment and Plan: * admission UA highly suggestive * blood/urine cultures so far negative * on empiric antibiotics Will continue to follow. Subjective Date/time seen: 09/14/22 11:09 Tolerated dialysis treatment yesterday without any issues or problems; sitting up in chair upon my visit and in no apparent distress; major complaint is that of fatigue/weakness; no issues overnight or earlier this AM. Exam Narrative: General: elderly frail female in NAD Heart: normal S1 and S2; no rub Lungs: coarse breath sounds Abdomen: soft, nontender, nondistended, positive bowel sounds Extremities: no cyanosis or clubbing; no edema Skin: warm and intact Objective Data Vital Signs Vital Signs: Vital Signs Temp Pulse Resp BP Pulse Ox O2 Del Method O2 Flow Rate 09/14/22 10:00 82 09/14/22 08:00 90 96 Nasal Cannula 3 09/14/22 08:00 90 09/14/22 09:12 74 09/14/22 07:54 36.5 C 91 24 H 144/58 H 96 09/14/22 06:00 91 09/14/22 04:00 36.4 C 90 20 132/61 100 09/14/22 04:00 90 09/14/22 03:48 89 19 98 Nasal Cannula 3 09/14/22 01:57 91 09/14/22 00:00
[2022-09-14 11:35] LABS: Hematocrit 26.2 % (37.0-47.0); Hemoglobin 8.5 g/dL (12.0-15.0)
--- NOTE | 2022-09-14 12:39 | PCOTNOTE ---
Patient sitting up in chair when attempted to see for OT. Patient reported wanting to go back to bed and reported she just wanted to lay in the bed and eat her sherbet. Patient assisted back to bed with Max A for stand pivot. Patient stood, flexed knees, had difficulty following commands. Patient attempted to sit prior to reaching EOB. Patient assisted with Max A for safety. Patient continued to refuse to participate in ADLs or UE exercises once back in bed. Patient not seen for OT session this date.
--- NOTE | 2022-09-14 17:11 | PM.IMPN ---
Progress Note: A&P Assessment and Plan (1) Chest pain: Code(s): R07.9 - Chest pain, unspecified Status: Acute Assessment and Plan: -patient no longer complains of any chest pain. -troponins are negative x3. - The patient may be moved to a medical-surgical floor and off of IMU. -EKG was read as the following SINUS RHYTHM POSSIBLE LEFT ATRIAL ENLARGEMENT BORDERLINE T WAVE ABNORMALITY- ANTERIOR LEADS BASELINE ARTIFACT- I, II, III, AVL, AVF, V1-V2, V6 BORDERLINE ECG COMPARED TO ECG 08/14/2022 23:23:55 NO SIGNIFICANT CHANGES Electronically Signed On 09-10-2022 16:20:24 DRAPERY EXAMINER by Edward Castaneda -patient may be complaining of chest pain due to dialysis or due to the hypoxia. Chest x-ray was read as1. New elevation of the right hemidiaphragm with right infrahilar opacities which could represent associated atelectasis or pneumonia. However the patient does not have a fever at this point and does not have any white count elevation. 09/14/2022 interval history:?81-year-old female with history of end-stage renal disease on hemodialysis presented emergency department with a complaint of chest pain after her dialysis session, patient? 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, patient was recently admitted to [facility] for transcranial hemorrhage, and was there for 3-4 weeks, on 09/12 patient hemoglobin was trending downto 6.4, there was no source of bleeding, most likely secondary to chronic kidney disease, patient was given 1 unit of PRBC, today patient hgb is stable, patient states feeling much better compared to when she arrived denies any chest pain or shortness of breath, patient had a his scheduled dialysis on 09/14 patient does feel weak and tired patient will benefit with physical therapy and going to SNF, will monitor patient if remains clinically stable may discharge patient tomorrow to SNF . (2) End-stage renal disease on hemodialysis: Code(s): N18.6 - End stage renal disease; Z99.2 - Dependence on renal dialysis Status: Acute Assessment and Plan: -patient has end-stage renal disease and is on dialysis Tuesday. The patient was at dialysis today when she developed chest pain. -nephrology has been consulted. (3) Hypertension: Code(s): I10 - Essential (primary) hypertension Status: Chronic Assessment and Plan: -it looks like the patient is on hydrochlorothiazide labetalol and nifedipine. The patient is too lethargic to take her medication at this point. Her blood pressure is 125/61. -her home meds are not reconciled at this point. So I will do p.r.n. hydralazine. (4) Hypoxia: Code(s): R09.02 - Hypoxemia Status: Acute Assessment and Plan: -it was reported that the patient had been on oxygen [facility] and on a CPAP. -I did order a CPAP and a home O2 evaluation. (5) UTI (urinary tract infection): Code(s): N39.0 - Urinary tract infection, site not specified Status: Acute Assessment and Plan: -patient was started on Rocephin. Tailor antibiotics to cultures. -urine and blood cultures are pending. (6) Gout: Code(s): M10.9 - Gout, unspecified Status: Acute Assessment and Plan: -the patient is on any medication at this time. Subjective Date/time seen: 09/14/22 17:11 09/14/2022 interval history:?81-year-old female with history of end-stage renal disease on hemodialysis presented emergency department with a complaint of chest pain after her dialysis session, patient? 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
--- NOTE | 2022-09-14 17:55 | PC.NURSE ---
1755 pt transferred to room 349 via bed accompanied by staff - report given to Catarina BOSS- transferred via bed accompanied by staff and personal belongings
--- NOTE | 2022-09-14 18:34 | PC.NURSE ---
PT received by transfer [facility] ROOM 206 @ [id number].
[2022-09-14 19:02] LABS: Hematocrit 24.4 % (37.0-47.0); Hemoglobin 7.9 g/dL (12.0-15.0)
[2022-09-14 23:46] LABS: Hematocrit 25.4 % (37.0-47.0); Hemoglobin 8.2 g/dL (12.0-15.0)
[2022-09-15] VITALS (24 sets, daily range): BP systolic 95–155; BP diastolic 51–90; PULSE 74–96; RESP 16–20; TEMP 36–36.6; O2SAT 95–98
[2022-09-15 05:16] LABS: Hematocrit 26.9 % (37.0-47.0); Hemoglobin 8.4 g/dL (12.0-15.0); Mean Corpuscular HGB Conc 31.2 g/dl (32-36); Mean Corpuscular Hemoglobin 30.5 pg (26-34); Mean Corpuscular Volume 97.8 fl (80-100); Mean Platelet Volume 9.2 fl (7.4-10.4); Platelet Count Result 265 k/mm3 (150-375); Red Blood Count 2.75 M/mm3 (4.2-5.4); Red Cell Distribution Width 14.8 % (11.5-14.5); White Blood Count 8.5 K/mm3 (4.5-10.0)
[2022-09-15 05:39] LABS: Albumin Level 3.2 g/dL (3.5-5.1); Anion Gap 8 mmol/L (8-16); Blood Urea Nitrogen 39 mg/dL (7-17); Calcium 8.9 mg/dL (8.4-10.2); Carbon Dioxide 27 mmol/L (22-30); Chloride 93 mmol/L (98-107); Estimated CRCL calculation 11 ml/min; Estimated Glomerular Filt Rate 13; Glucose 100 mg/dL (65-110); Phosphorus 3.7 mg/dL (2.5-4.5); Potassium 3.7 mmol/L (3.4-5.0); Sodium 128 mmol/L (137-145)
[2022-09-15] MEDS: LABETALOL HCL 100 MG TABLET 200 MG PO (08:40)
--- NOTE | 2022-09-15 11:04 | PC.NURSE ---
Call made to Stacy PANDA to update on her mothers condition today. All questions answered. Is faxing [facility] paperwork over right now. Will add to the chart.
--- NOTE | 2022-09-15 12:13 | PM.IMPN ---
Progress Note: A&P Assessment and Plan (1) Chest pain: Code(s): R07.9 - Chest pain, unspecified Status: Acute Assessment and Plan: no chest pain this morning. Workup unrevealing. (2) End-stage renal disease on hemodialysis: Code(s): N18.6 - End stage renal disease; Z99.2 - Dependence on renal dialysis Status: Acute Assessment and Plan: -patient has end-stage renal disease and is on dialysis Tuesday. The patient was at dialysis today when she developed chest pain. -nephrology has been consulted. - Will need hemodialysis today then likely discharge tomorrow. (3) Hypertension: Code(s): I10 - Essential (primary) hypertension Status: Chronic Assessment and Plan: -it looks like the patient is on hydrochlorothiazide labetalol and nifedipine. The patient is too lethargic to take her medication at this point. Her blood pressure is 125/61. -her home meds are not reconciled at this point. So I will do p.r.n. hydralazine. (4) Hypoxia: Code(s): R09.02 - Hypoxemia Status: Acute Assessment and Plan: -it was reported that the patient had been on oxygen at [facility] and on a CPAP. -I did order a CPAP and a home O2 evaluation. (5) UTI (urinary tract infection): Code(s): N39.0 - Urinary tract infection, site not specified Status: Acute Assessment and Plan: -patient was started on Rocephin. Tailor antibiotics to cultures. -urine and blood cultures are pending. (6) Gout: Code(s): M10.9 - Gout, unspecified Status: Acute Assessment and Plan: -the patient is on any medication at this time. Subjective Date/time seen: 09/15/22 12:13 no complaints, no chest pain Exam Narrative: elderly frail Patient is comfortable, NAD HEENT: eyes are clear and none icteric LUNGS:CTA HEART: RR S1S2 ABD: BS+, Soft and nontender Lower extremities: no edema SKIN: nonjaundiced Neuro: grossly intact. Objective Data Vital Signs Vital Signs: Vital Signs - 24 hr 09/14/22 12:30 09/14/22 12:30 09/14/22 14:00 Temperature Pulse Rate 83 86 Respiratory Rate Blood Pressure Pulse Oximetry 95 Oxygen Delivery Nasal Cannula Oxygen Flow Rate 3 09/14/22 16:42 09/14/22 19:18 09/15/22 05:02 Temperature 97.2 F L 98 F 97 F L Pulse Rate 84 85 81 Respiratory Rate 20 18 18 Blood Pressure 152/67 H 126/62 155/58 H Pulse Oximetry 99 96 98 Oxygen Delivery Oxygen Flow Rate 09/15/22 08:40 09/15/22 08:42 Temperature Pulse Rate 74 74 Respiratory Rate 16 Blood Pressure Pulse Oximetry 95 Oxygen Delivery Nasal Cannula Oxygen Flow Rate 3 Intake/Output Intake/Output: Intake & Output 09/12/22 09/13/22 09/14/22 09/15/22 23:59 23:59 23:59 23:59 Intake Total 1540 1160 1800 390 Output Total 3300 0 Balance 1540 -2140 1800 390 Meds/Results Medications: Active Medications Generic Name Dose Route Start Last Admin Trade Name Freq PRN Reason Stop Dose Admin Epoetin Ricardo-epbx 10,000 units 09/15/22 22:53 Epoetin Ricardo-Epbx 10,000 Units/Ml Vial IV PUSH 09/15/22 22:54 ONCE ONE Hydralazine HCl 10 mg 09/10/22 22:27 Hydralazine Hcl 20 Mg/Ml Vial IV PUSH Q8H PRN Blood Pressure - High Albumin Human 50 mls @ 999 mls/hr 09/13/22 02:20 Albutein IVPB 10/13/22 02:19 Q10M PRN HYPOTENSION Labetalol HCl 200 mg 09/11/22 09:00 09/15/22 08:40 Labetalol Hcl 100 Mg Tablet PO 200 mg DAILY RENAE Administration Miconazole Nitrate 1 applic 09/13/22 09:00 09/15/22 08:40 Miconazole 2% Antifungal Ointment 56 Gm TOPICAL 1 applic Q12HR RENAE Administration Ondansetron HCl 4 mg 09/10/22 16:51 Ondansetron Inj 4 Mg/2 Ml Vial IV PUSH Q4H PRN Nausea Radiology Results: ITS Impressions Chest X-Ray 09/10/22 14:56 IMPRESSION: 1. New elevation of the right hemidiaphragm with right infrahilar opacities which could represent associa
--- NOTE | 2022-09-15 14:15 | P.PNNP_ITS ---
Progress Note: A&P Assessment and Plan (1) End stage renal disease: Code(s): N18.6 - End stage renal disease Status: Chronic Assessment and Plan: * HD today and continue outpatient schedule of M/W/ * follow electrolytes, volume status, and clearance (2) Hypoxia: Code(s): R09.02 - Hypoxemia Status: Acute Assessment and Plan: * suspect admission symptoms (chest pain and altered mental status) due to this issue * was apparently on chronic oxygen therapy while at [facility] * however, on discharge to [facility], she was not receiving any oxygen therapy * suspect she may have been hypoxic for at least 12+ hours before her presentation to dialysis on Tuesday (09/10/22) * questionable pneumonia by admission CXR * however, covered by IV ceftriaxone (started for possible UTI) * stable oxygenation of current supplemental oxygen setting * continue supportive therapy (3) Anemia: Code(s): D64.9 - Anemia, unspecified Status: Acute Assessment and Plan: * low H/H noted by 09/12/22 AM labs * due to ESRD and recent acute illness * suspect frequent blood draws with last hospitalization at [facility] may be contributing * Epogen with HD * s/p PRBC transfusion * adequate iron studiesby anemia studies * follow trend of H/H (4) Chest pain: Code(s): R07.9 - Chest pain, unspecified Status: Acute Assessment and Plan: * no further complaints at this time * suspect due to hypoxia rather than ACS * troponin negative x 3 (5) Hypertension: Code(s): I10 - Essential (primary) hypertension Status: Chronic Assessment and Plan: * reasonable control at this time * discharge summary from [facility] indicates she was on amlodipine (10mg qday), losartan (100mg qday), coreg (25mg bid), hydralazine (100mg tid), and clonidine (0.2mg/24hr patch) * not currently on this regimen but BP controlled * follow trend of hemodynamics for now * perhaps dialysis is helping keep BP stable (6) UTI (urinary tract infection): Code(s): N39.0 - Urinary tract infection, site not specified Status: Acute Assessment and Plan: * admission UA highly suggestive * blood/urine cultures so far negative * on empiric antibiotics Will continue to follow. Subjective Date/time seen: 09/15/22 14:15 Tolerating dialysis treatment at the time of my visit (seen on HD at 2:00pm); breathing appears stable and in no apparent distress; no new issues/events overnight or earlier this morning. Exam Narrative: General: elderly frail female in NAD Heart: normal S1 and S2; no rub Lungs: coarse breath sounds Abdomen: soft, nontender, nondistended, positive bowel sounds Extremities: no cyanosis or clubbing; no edema Skin: no rash Objective Data Vital Signs Vital Signs: Vital Signs Temp Pulse Resp BP Pulse Ox O2 Del Method O2 Flow Rate 09/15/22 14:15 87 125/60 09/15/22 13:57 76 136/70 09/15/22 13:53 2 09/15/22 13:56 36.6 C 81 20 150/73 H 09/15/22 12:19 95 09/15/22 08:42 74 16 95 Nasal Cannula 3 09/15/22 08:40 74 09/15/22 05:02 36.1 C L 81 18 155/58 H 98 09/14/22 19:18 36.6 C 85 18 126/62 96 09/14/22 16:42 36.2 C L 84 20 152/67 H 99 Intake/Output
--- NOTE | 2022-09-15 14:15 | PM.PNNEP ---
Progress Note: A&P Assessment and Plan (1) End stage renal disease: Code(s): N18.6 - End stage renal disease Status: Chronic Assessment and Plan: HD today and continue outpatient schedule of M/W/F follow electrolytes, volume status, and clearance (2) Hypoxia: Code(s): R09.02 - Hypoxemia Status: Acute Assessment and Plan: suspect admission symptoms (chest pain and altered mental status) due to this issue was apparently on chronic oxygen therapy while at [facility] however, on discharge to senior care, she was not receiving any oxygen therapy suspect she may have been hypoxic for at least 12+ hours before her presentation to dialysis on Tuesday (09/10/22) questionable pneumonia by admission CXR however, covered by IV ceftriaxone (started for possible UTI) stable oxygenation of current supplemental oxygen setting continue supportive therapy (3) Anemia: Code(s): D64.9 - Anemia, unspecified Status: Acute Assessment and Plan: low H/H noted by 09/12/22 AM labs due to ESRD and recent acute illness suspect frequent blood draws with last hospitalization at [facility] may be contributing Epogen with HD s/p PRBC transfusion adequate iron studiesby anemia studies follow trend of H/H (4) Chest pain: Code(s): R07.9 - Chest pain, unspecified Status: Acute Assessment and Plan: no further complaints at this time suspect due to hypoxia rather than ACS troponin negative x 3 (5) Hypertension: Code(s): I10 - Essential (primary) hypertension Status: Chronic Assessment and Plan: reasonable control at this time discharge summary from [facility] indicates she was on amlodipine (10mg qday), losartan (100mg qday), coreg (25mg bid), hydralazine (100mg tid), and clonidine (0.2mg/24hr patch) not currently on this regimen but BP controlled follow trend of hemodynamics for now perhaps dialysis is helping keep BP stable (6) UTI (urinary tract infection): Code(s): N39.0 - Urinary tract infection, site not specified Status: Acute Assessment and Plan: admission UA highly suggestive blood/urine cultures so far negative on empiric antibiotics Will continue to follow. Subjective Date/time seen: 09/15/22 14:15 Tolerating dialysis treatment at the time of my visit (seen on HD at 2:00pm); breathing appears stable and in no apparent distress; no new issues/events overnight or earlier this morning. Exam Narrative: General: elderly frail female in NAD Heart: normal S1 and S2; no rub Lungs: coarse breath sounds Abdomen: soft, nontender, nondistended, positive bowel sounds Extremities: no cyanosis or clubbing; no edema Skin: no rash Objective Data Vital Signs Vital Signs: Vital Signs Temp Pulse Resp BP Pulse Ox O2 Del Method O2 Flow Rate 09/15/22 14:15 87 125/60 09/15/22 13:57 76 136/70 09/15/22 13:53 2 09/15/22 13:56 36.6 C 81 20 150/73 H 09/15/22 12:19 95 09/15/22 08:42 74 16 95 Nasal Cannula 3 09/15/22 08:40 74 09/15/22 05:02 36.1 C L 81 18 155/58 H 98 09/14/22 19:18 36.6 C 85 18 126/62 96 09/14/22 16:42 36.2 C L 84 20 152/67 H 99 Intake/Output Intake/Output: Intake & Output 09/12/22 09/13/22 09/14/22 09/15/22 23:59 23:59 23:59 23:59 Intake Total 1540 1160 1800 630 Output Total 3300 0 Balance 1540 -2140 1800 630 Meds/Results Medications: Active Medications Generic Name Dose Route Start Last Admin Trade Name Freq PRN Reason Stop Dose Admin Epoetin Ricardo-epbx 10,000 units 09/15/22 22:53 Epoetin Ricardo-Epbx 10,000 Units/Ml Vial IV PUSH 09/15/22 22:54 ONCE ONE Hydralazine HCl 10 mg 09/10/22 22:27 Hydralazine Hcl 20 Mg/Ml Vial IV PUSH Q8H PRN Blood Pressure - High Albumin Human 50 mls @ 999 mls/hr 09/13/22 02:20 Albutein IVPB 10/13/22 02:19 Q10M PRN
--- NOTE | 2022-09-15 14:17 | PCOTNOTE ---
Attempted to see patient twice this date. First attempt, per PT activity assistant patient just finished PT and returned to bed due to dizziness with out of bed activity and orthostatic BP. Attempted to see patient this pm, however patient was off floor for dialysis.
[2022-09-16 04:00] VITALS: BP 153/58; PULSE 88; RESP 18; TEMP 36.4; O2SAT 95
[2022-09-16 06:04] LABS: Hematocrit 28.5 % (37.0-47.0); Mean Corpuscular HGB Conc 31.6 g/dl (32-36); Mean Corpuscular Hemoglobin 30.3 pg (26-34); Mean Platelet Volume 8.7 fl (7.4-10.4); Platelet Count Result 226 k/mm3 (150-375); Red Blood Count 2.97 M/mm3 (4.2-5.4); Red Cell Distribution Width 15.2 % (11.5-14.5); White Blood Count 8.2 K/mm3 (4.5-10.0)
[2022-09-16 06:22] LABS: Albumin Level 3.3 g/dL (3.5-5.1); Anion Gap 6 mmol/L (8-16); Blood Urea Nitrogen 18 mg/dL (7-17); Calcium 8.8 mg/dL (8.4-10.2); Carbon Dioxide 31 mmol/L (22-30); Chloride 95 mmol/L (98-107); Estimated CRCL calculation 14 ml/min; Estimated Glomerular Filt Rate 18; Glucose 106 mg/dL (65-110); Phosphorus 2.7 mg/dL (2.5-4.5); Potassium 3.5 mmol/L (3.4-5.0); Sodium 132 mmol/L (137-145)
[2022-09-16 08:10] VITALS: PULSE 88
[2022-09-16] MEDS: LABETALOL HCL 100 MG TABLET 200 MG PO (08:10)
--- NOTE | 2022-09-16 10:57 | PM.IMPN ---
Progress Note: A&P Assessment and Plan (1) Chest pain: Code(s): R07.9 - Chest pain, unspecified Status: Acute Assessment and Plan: no chest pain this morning. Workup unrevealing. (2) End-stage renal disease on hemodialysis: Code(s): N18.6 - End stage renal disease; Z99.2 - Dependence on renal dialysis Status: Acute Assessment and Plan: continue hemodialysis on discharge. (3) Hypertension: Code(s): I10 - Essential (primary) hypertension Status: Chronic Assessment and Plan: Pressure looks okay (4) Hypoxia: Code(s): R09.02 - Hypoxemia Status: Acute Assessment and Plan: improved. (5) UTI (urinary tract infection): Code(s): N39.0 - Urinary tract infection, site not specified Status: Acute Assessment and Plan: Antibiotics on discharge. (6) Gout: Code(s): M10.9 - Gout, unspecified Status: Acute Assessment and Plan: -the patient is on any medication at this time. Subjective Date/time seen: 09/16/22 10:57 No complaints Exam Narrative: elderly frail Patient is comfortable, NAD HEENT: eyes are clear and none icteric LUNGS:CTA HEART: RR S1S2 ABD: BS+, Soft and nontender Lower extremities: no edema SKIN: nonjaundiced Neuro: grossly intact. Objective Data Vital Signs Vital Signs: Vital Signs - 24 hr 09/15/22 12:19 09/15/22 13:56 09/15/22 13:53 Temperature 97.9 F Pulse Rate 81 Respiratory Rate 20 Blood Pressure 150/73 H Pulse Oximetry 95 Oxygen Delivery Oxygen Flow Rate 2 09/15/22 13:57 09/15/22 14:15 09/15/22 14:30 Temperature Pulse Rate 76 87 92 Respiratory Rate Blood Pressure 136/70 125/60 104/63 Pulse Oximetry Oxygen Delivery Oxygen Flow Rate 09/15/22 14:45 09/15/22 15:00 09/15/22 15:15 Temperature Pulse Rate 90 87 87 Respiratory Rate Blood Pressure 96/90 L 129/61 120/59 L Pulse Oximetry Oxygen Delivery Oxygen Flow Rate 09/15/22 15:30 09/15/22 15:45 09/15/22 16:00 Temperature Pulse Rate 91 83 92 Respiratory Rate Blood Pressure 102/62 141/66 H 112/61 Pulse Oximetry Oxygen Delivery Oxygen Flow Rate 09/15/22 16:15 09/15/22 16:30 09/15/22 16:45 Temperature Pulse Rate 88 90 92 Respiratory Rate Blood Pressure 117/60 121/72 114/64 Pulse Oximetry Oxygen Delivery Oxygen Flow Rate 09/15/22 17:00 09/15/22 17:15 09/15/22 17:30 Temperature Pulse Rate 92 94 96 Respiratory Rate Blood Pressure 99/61 L 95/51 L 97/54 L Pulse Oximetry Oxygen Delivery Oxygen Flow Rate 09/15/22 17:33 09/15/22 17:43 09/15/22 20:00 Temperature 97.5 F L 97.6 F Pulse Rate 87 88 89 Respiratory Rate 20 20 Blood Pressure 131/65 122/58 L 155/70 H Pulse Oximetry 97 Oxygen Delivery Oxygen Flow Rate 09/16/22 04:00 09/16/22 08:10 09/16/22 08:00 Temperature 97.6 F Pulse Rate 88 88 Respiratory Rate 18 Blood Pressure 153/58 H Pulse Oximetry 95 Oxygen Delivery Room Air Oxygen Flow Rate Intake/Output Intake/Output: Intake & Output 09/13/22 09/14/22 09/15/22 09/16/22 23:59 23:59 23:59 23:59 Intake Total 1160 1800 870 390 Output Total 3300 0 3000 Balance -2140 1800 -2130 390 Meds/Results Medications: Active Medications Generic Name Dose Route Start Last Admin Trade Name Freq PRN Reason Stop Dose Admin Hydralazine HCl 10 mg 09/10/22 22:27 Hydralazine Hcl 20 Mg/Ml Vial IV PUSH Q8H PRN Blood Pressure - High Albumin Human 50 mls @ 999 mls/hr 09/13/22 02:20 Albutein IVPB 10/13/22 02:19 Q10M PRN HYPOTENSION Labetalol HCl 200 mg 09/11/22 09:00 09/16/22 08:10 Labetalol Hcl 100 Mg Tablet PO 200 mg DAILY RENAE Administration Miconazole Nitrate 1 applic 09/13/22 09:00 09/16/22 08:10 Miconazole 2% Antifungal Ointment 56 Gm TOPICAL 1 applic Q12HR RENAE Administration Ondansetron HCl 4 m
[2022-09-16 12:00] VITALS: BP 149/58; PULSE 90; RESP 16; TEMP 36.3; O2SAT 95
--- NOTE | 2022-09-16 12:25 | P.PNNP_ITS ---
Progress Note: A&P Assessment and Plan (1) End stage renal disease: Code(s): N18.6 - End stage renal disease Status: Chronic Assessment and Plan: * HD tomorrow and continue outpatient schedule of M/W/ * follow electrolytes, volume status, and clearance (2) Hypoxia: Code(s): R09.02 - Hypoxemia Status: Acute Assessment and Plan: * suspect admission symptoms (chest pain and altered mental status) due to this issue * was apparently on chronic oxygen therapy while at [facility] * however, on discharge to longterm, she was not receiving any oxygen therapy * suspect she may have been hypoxic for at least 12+ hours before her presentation to dialysis on Tuesday (09/10/22) * questionable pneumonia by admission CXR * however, covered by IV ceftriaxone (started for possible UTI) * stable oxygenation of current supplemental oxygen setting * continue supportive therapy (3) Anemia: Code(s): D64.9 - Anemia, unspecified Status: Acute Assessment and Plan: * low H/H noted by 09/12/22 AM labs * due to ESRD and recent acute illness * suspect frequent blood draws with last hospitalization at [facility] may be contributing * Epogen with HD * s/p PRBC transfusion * adequate iron studiesby anemia studies * follow trend of H/H (4) Chest pain: Code(s): R07.9 - Chest pain, unspecified Status: Acute Assessment and Plan: * no further complaints at this time * suspect due to hypoxia rather than ACS * troponin negative x 3 (5) Hypertension: Code(s): I10 - Essential (primary) hypertension Status: Chronic Assessment and Plan: * reasonable control at this time * discharge summary from [facility] indicates she was on amlodipine (10mg qday), losartan (100mg qday), coreg (25mg bid), hydralazine (100mg tid), and clonidine (0.2mg/24hr patch) * not currently on this regimen but BP controlled * follow trend of hemodynamics for now * perhaps dialysis is helping keep BP stable (6) UTI (urinary tract infection): Code(s): N39.0 - Urinary tract infection, site not specified Status: Acute Assessment and Plan: * admission UA highly suggestive * blood/urine cultures so far negative * on empiric antibiotics Not opposed to discharge from renal perspective if otherwise medically stable. Will continue to follow. Subjective Date/time seen: 09/16/22 12:25 Overall, seems to be doing reasonably well; tolerated dialysis yesterday without any issues or problems; breathing/oxygenation seems stable with current interve ntions; no other issues/events overnight or earlier this morning. Exam Narrative: General: elderly frail female in NAD Heart: normal S1 and S2; no rub Lungs: coarse breath sounds Abdomen: soft, nontender, nondistended, positive bowel sounds Extremities: no cyanosis or clubbing; no edema Skin: warm and dry Objective Data Vital Signs Vital Signs: Vital Signs Temp Pulse Resp BP Pulse Ox O2 Del Method O2 Flow Rate 09/16/22 08:00 Room Air 09/16/22 08:10 88 09/16/22 04:00 36.4 C 88 18 153/58 H 95 09/15/22 20:00 36.4 C 89 20 155/70 H 97 09/15/22 17:43 36.4 C L 88 20 122/58 L 09/15/22 17:33 87 131/65 09/15/22 17:30 96 97/54 L 09/15/22 17:15 94 95/51 L
--- NOTE | 2022-09-16 12:25 | PM.PNNEP ---
Progress Note: A&P Assessment and Plan (1) End stage renal disease: Code(s): N18.6 - End stage renal disease Status: Chronic Assessment and Plan: HD tomorrow and continue outpatient schedule of M/W/F follow electrolytes, volume status, and clearance (2) Hypoxia: Code(s): R09.02 - Hypoxemia Status: Acute Assessment and Plan: suspect admission symptoms (chest pain and altered mental status) due to this issue was apparently on chronic oxygen therapy while at [facility] however, on discharge to group home, she was not receiving any oxygen therapy suspect she may have been hypoxic for at least 12+ hours before her presentation to dialysis on Tuesday (09/10/22) questionable pneumonia by admission CXR however, covered by IV ceftriaxone (started for possible UTI) stable oxygenation of current supplemental oxygen setting continue supportive therapy (3) Anemia: Code(s): D64.9 - Anemia, unspecified Status: Acute Assessment and Plan: low H/H noted by 09/12/22 AM labs due to ESRD and recent acute illness suspect frequent blood draws with last hospitalization at [facility] may be contributing Epogen with HD s/p PRBC transfusion adequate iron studiesby anemia studies follow trend of H/H (4) Chest pain: Code(s): R07.9 - Chest pain, unspecified Status: Acute Assessment and Plan: no further complaints at this time suspect due to hypoxia rather than ACS troponin negative x 3 (5) Hypertension: Code(s): I10 - Essential (primary) hypertension Status: Chronic Assessment and Plan: reasonable control at this time discharge summary from [facility] indicates she was on amlodipine (10mg qday), losartan (100mg qday), coreg (25mg bid), hydralazine (100mg tid), and clonidine (0.2mg/24hr patch) not currently on this regimen but BP controlled follow trend of hemodynamics for now perhaps dialysis is helping keep BP stable (6) UTI (urinary tract infection): Code(s): N39.0 - Urinary tract infection, site not specified Status: Acute Assessment and Plan: admission UA highly suggestive blood/urine cultures so far negative on empiric antibiotics Not opposed to discharge from renal perspective if otherwise medically stable. Will continue to follow. Subjective Date/time seen: 09/16/22 12:25 Overall, seems to be doing reasonably well; tolerated dialysis yesterday without any issues or problems; breathing/oxygenation seems stable with current interventions; no other issues/events overnight or earlier this morning. Exam Narrative: General: elderly frail female in NAD Heart: normal S1 and S2; no rub Lungs: coarse breath sounds Abdomen: soft, nontender, nondistended, positive bowel sounds Extremities: no cyanosis or clubbing; no edema Skin: warm and dry Objective Data Vital Signs Vital Signs: Vital Signs Temp Pulse Resp BP Pulse Ox O2 Del Method O2 Flow Rate 09/16/22 08:00 Room Air 09/16/22 08:10 88 09/16/22 04:00 36.4 C 88 18 153/58 H 95 09/15/22 20:00 36.4 C 89 20 155/70 H 97 09/15/22 17:43 36.4 C L 88 20 122/58 L 09/15/22 17:33 87 131/65 09/15/22 17:30 96 97/54 L 09/15/22 17:15 94 95/51 L 09/15/22 17:00 92 99/61 L 09/15/22 16:45 92 114/64 09/15/22 16:30 90 121/72 09/15/22 16:15 88 117/60 09/15/22 16:00 92 112/61 09/15/22 15:45 83 141/66 H 09/15/22 15:30 91 102/62 09/15/22 15:15 87 120/59 L 09/15/22 15:00 87 129/61 09/15/22 14:45 90 96/90 L 09/15/22 14:30 92 104/63 09/15/22 14:15 87 125/60 09/15/22 13:57 76 136/70 09/15/22 13:53 2 09/15/22 13:56 36.6 C 81 20 150/73 H Intake/Output Intake/Output: Intake & Output 09/13/22 09/14/22 09/15/22 09/16/22 23:59 23:59 23:59 23:59 Intake Total 1160 180
--- NOTE | 2022-09-16 13:24 | PCOTNOTE ---
Attempted to see patient this pm. Pt sleeping upon entering and easily aroused. Lunch tray at bedside and patient ready to eat at this time. Assisted patient with set up to eat.
[2022-09-16 20:46] VITALS: BP 131/52; PULSE 88; RESP 18; TEMP 36.2; O2SAT 98
[2022-09-17] VITALS (18 sets, daily range): BP systolic 86–150; BP diastolic 32–73; PULSE 60–95; RESP 16–18; TEMP 36.1–36.9; O2SAT 95–97
[2022-09-17 06:14] LABS: Hematocrit 26.4 % (37.0-47.0); Hemoglobin 8.4 g/dL (12.0-15.0); Mean Corpuscular HGB Conc 31.8 g/dl (32-36); Mean Corpuscular Hemoglobin 30.1 pg (26-34); Mean Corpuscular Volume 94.6 fl (80-100); Platelet Count Result 245 k/mm3 (150-375); Red Blood Count 2.79 M/mm3 (4.2-5.4); Red Cell Distribution Width 15.5 % (11.5-14.5); White Blood Count 8.4 K/mm3 (4.5-10.0)
[2022-09-17 06:51] LABS: Albumin Level 3.1 g/dL (3.5-5.1); Anion Gap 10 mmol/L (8-16); Blood Urea Nitrogen 34 mg/dL (7-17); Carbon Dioxide 29 mmol/L (22-30); Chloride 91 mmol/L (98-107); Estimated CRCL calculation 10 ml/min; Estimated Glomerular Filt Rate 11; Glucose 102 mg/dL (65-110); Phosphorus 2.9 mg/dL (2.5-4.5); Potassium 3.6 mmol/L (3.4-5.0); Sodium 130 mmol/L (137-145)
[2022-09-17] MEDS: LABETALOL HCL 100 MG TABLET 200 MG PO (09:04)
--- NOTE | 2022-09-17 09:31 | PCOTNOTE ---
Pt is out of room and unavailable due to being at dialysis. Will continue per poc duration/frequency tomorrow.
--- NOTE | 2022-09-17 12:11 | PM.IMPN ---
Progress Note: A&P Assessment and Plan (1) Chest pain: Code(s): R07.9 - Chest pain, unspecified Status: Acute Assessment and Plan: no chest pain this morning. Workup unrevealing. (2) End-stage renal disease on hemodialysis: Code(s): N18.6 - End stage renal disease; Z99.2 - Dependence on renal dialysis Status: Acute Assessment and Plan: continue hemodialysis on discharge. (3) Hypertension: Code(s): I10 - Essential (primary) hypertension Status: Chronic Assessment and Plan: Pressure looks okay (4) Hypoxia: Code(s): R09.02 - Hypoxemia Status: Acute Assessment and Plan: improved. (5) UTI (urinary tract infection): Code(s): N39.0 - Urinary tract infection, site not specified Status: Acute Assessment and Plan: Antibiotics on discharge. (6) Gout: Code(s): M10.9 - Gout, unspecified Status: Acute Assessment and Plan: -the patient is on any medication at this time. Subjective Date/time seen: 09/17/22 12:11 no complaints Exam Narrative: elderly frail Patient is comfortable, NAD HEENT: eyes are clear and none icteric LUNGS:CTA HEART: RR S1S2 ABD: BS+, Soft and nontender Lower extremities: no edema SKIN: nonjaundiced Neuro: grossly intact. Objective Data Vital Signs Vital Signs: Vital Signs - 24 hr 09/16/22 20:46 09/17/22 04:00 09/17/22 09:04 Temperature 97.2 F L 97 F L Pulse Rate 88 60 68 Respiratory Rate 18 18 Blood Pressure 131/52 L 143/70 H Pulse Oximetry 98 95 09/17/22 09:19 09/17/22 09:25 09/17/22 09:40 Temperature 98.2 F Pulse Rate 90 84 76 Respiratory Rate 16 Blood Pressure 140/44 L 150/73 H 104/46 L Pulse Oximetry 09/17/22 10:00 09/17/22 10:20 Temperature Pulse Rate 75 75 Respiratory Rate Blood Pressure 86/38 L 95/43 L Pulse Oximetry Intake/Output Intake/Output: Intake & Output 09/14/22 09/15/22 09/16/22 09/17/22 23:59 23:59 23:59 23:59 Intake Total 1800 870 730 490 Output Total 0 3000 Balance 1800 -2130 730 490 Meds/Results Medications: Active Medications Generic Name Dose Route Start Last Admin Trade Name Freq PRN Reason Stop Dose Admin Epoetin Ricardo-epbx 10,000 units 09/17/22 21:23 Epoetin Ricardo-Epbx 10,000 Units/Ml Vial IV PUSH 09/17/22 21:24 ONCE ONE Hydralazine HCl 10 mg 09/10/22 22:27 Hydralazine Hcl 20 Mg/Ml Vial IV PUSH Q8H PRN Blood Pressure - High Albumin Human 50 mls @ 999 mls/hr 09/13/22 02:20 Albutein IVPB 10/13/22 02:19 Q10M PRN HYPOTENSION Labetalol HCl 200 mg 09/11/22 09:00 09/17/22 09:04 Labetalol Hcl 100 Mg Tablet PO 200 mg DAILY RENAE Administration Miconazole Nitrate 1 applic 09/13/22 09:00 09/17/22 09:05 Miconazole 2% Antifungal Ointment 56 Gm TOPICAL 1 applic Q12HR RENAE Administration Ondansetron HCl 4 mg 09/10/22 16:51 Ondansetron Inj 4 Mg/2 Ml Vial IV PUSH Q4H PRN Nausea Radiology Results: ITS Impressions Chest X-Ray 09/10/22 14:56 IMPRESSION: 1. New elevation of the right hemidiaphragm with right infrahilar opacities which could represent associated atelectasis or pneumonia. Head CT 09/10/22 14:58 IMPRESSION: 1. No acute intracranial process. 2. 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 3. Moderate scattered white matter hypoattenuation consistent with chronic small vessel ischemic disease. Labs Labs: Laboratory Results - last 24 hr 09/17/22 09/17/22 05:52 05:52 WBC 8.4 RBC 2.79 L Hgb 8.4 L Hct 26.4 L MCV 94.6 MCH 30.1 MCHC 31.8 L RDW 15.5 H Plt Count 245 MPV 9.0 Sodium 130 L Potassium 3.6 Chloride 91 L Carbon Dioxide 29 Anion Gap 10 BUN 34 H D Creatinine 3.80 H Estim Creat Clear Calc 10 Estimated GFR 11 L Glucose 10
--- NOTE | 2022-09-17 12:40 | P.PNNP_ITS ---
Progress Note: A&P Assessment and Plan (1) End stage renal disease: Code(s): N18.6 - End stage renal disease Status: Chronic Assessment and Plan: * HD today and continue outpatient schedule of M/W/ * follow electrolytes, volume status, and clearance (2) Hypoxia: Code(s): R09.02 - Hypoxemia Status: Acute Assessment and Plan: * suspect admission symptoms (chest pain and altered mental status) due to this issue * was apparently on chronic oxygen therapy while at [facility] * however, on discharge to long-term, she was not receiving any oxygen therapy * suspect she may have been hypoxic for at least 12+ hours before her presentation to dialysis on Tuesday (09/10/22) * stable oxygenation of current supplemental oxygen setting * continue supportive therapy (3) Anemia: Code(s): D64.9 - Anemia, unspecified Status: Acute Assessment and Plan: * low H/H noted by 09/12/22 AM labs * due to ESRD and recent acute illness * suspect frequent blood draws with last hospitalization at [facility] may be contributing * Epogen with HD * s/p PRBC transfusion * adequate iron studiesby anemia studies * follow trend of H/H (4) Chest pain: Code(s): R07.9 - Chest pain, unspecified Status: Acute Assessment and Plan: * no further complaints at this time * suspect due to hypoxia rather than ACS * troponin negative x 3 (5) Hypertension: Code(s): I10 - Essential (primary) hypertension Status: Chronic Assessment and Plan: * reasonable control at this time * discharge summary from [facility] indicates she was on amlodipine (10mg qday), losa rtan (100mg qday), coreg (25mg bid), hydralazine (100mg tid), and clonidine (0.2mg/24hr patch) * not currently on this regimen but BP controlled * follow trend of hemodynamics for now * perhaps dialysis is helping keep BP stable (6) UTI (urinary tract infection): Code(s): N39.0 - Urinary tract infection, site not specified Status: Acute Assessment and Plan: * admission UA highly suggestive * blood/urine cultures so far negative * on empiric antibiotics Not opposed to discharge from renal perspective if otherwise medically stable. Will continue to follow. Subjective Date/time seen: 09/17/22 12:40 Tolerating dialysis treatment at the time of my visit (seen on HD at 12:25PM); no new issues/problems to report at this time; no apparent distress noted; overall, seems to be feeling reasonably well. Exam Narrative: General: elderly frail female in NAD Heart: normal S1 and S2; no rub Lungs: decreased at bases Abdomen: soft, nontender, nondistended, positive bowel sounds Extremities: no cyanosis or clubbing; no edema Skin: warm and intact Objective Data Vital Signs Vital Signs: Vital Signs Temp Pulse Resp BP Pulse Ox 09/17/22 12:40 84 110/56 L 09/17/22 12:20 79 113/56 L 09/17/22 12:00 80 141/65 H 09/17/22 11:40 80 119/55 L 09/17/22 11:20 77 123/50 L 09/17/22 11:00 76 106/51 L 09/17/22 10:40 75 104/32 L 09/17/22 10:20 75 95/43 L 09/17/22 10:00 75 86/38 L 09/17/22 09:40 76 104/46 L 09/17/22 09:25 84 150/73 H 09/17/22 09:19 36.8 C 90 16 140/44 L 09/17/22 09:04 68
--- NOTE | 2022-09-17 12:40 | PM.PNNEP ---
Progress Note: A&P Assessment and Plan (1) End stage renal disease: Code(s): N18.6 - End stage renal disease Status: Chronic Assessment and Plan: HD today and continue outpatient schedule of M/W/F follow electrolytes, volume status, and clearance (2) Hypoxia: Code(s): R09.02 - Hypoxemia Status: Acute Assessment and Plan: suspect admission symptoms (chest pain and altered mental status) due to this issue was apparently on chronic oxygen therapy while at [facility] however, on discharge to senior care, she was not receiving any oxygen therapy suspect she may have been hypoxic for at least 12+ hours before her presentation to dialysis on Tuesday (09/10/22) stable oxygenation of current supplemental oxygen setting continue supportive therapy (3) Anemia: Code(s): D64.9 - Anemia, unspecified Status: Acute Assessment and Plan: low H/H noted by 09/12/22 AM labs due to ESRD and recent acute illness suspect frequent blood draws with last hospitalization at [facility] may be contributing Epogen with HD s/p PRBC transfusion adequate iron studiesby anemia studies follow trend of H/H (4) Chest pain: Code(s): R07.9 - Chest pain, unspecified Status: Acute Assessment and Plan: no further complaints at this time suspect due to hypoxia rather than ACS troponin negative x 3 (5) Hypertension: Code(s): I10 - Essential (primary) hypertension Status: Chronic Assessment and Plan: reasonable control at this time discharge summary from [facility] indicates she was on amlodipine (10mg qday), losartan (100mg qday), coreg (25mg bid), hydralazine (100mg tid), and clonidine (0.2mg/24hr patch) not currently on this regimen but BP controlled follow trend of hemodynamics for now perhaps dialysis is helping keep BP stable (6) UTI (urinary tract infection): Code(s): N39.0 - Urinary tract infection, site not specified Status: Acute Assessment and Plan: admission UA highly suggestive blood/urine cultures so far negative on empiric antibiotics Not opposed to discharge from renal perspective if otherwise medically stable. Will continue to follow. Subjective Date/time seen: 09/17/22 12:40 Tolerating dialysis treatment at the time of my visit (seen on HD at 12:25PM); no new issues/problems to report at this time; no apparent distress noted; overall, seems to be feeling reasonably well. Exam Narrative: General: elderly frail female in NAD Heart: normal S1 and S2; no rub Lungs: decreased at bases Abdomen: soft, nontender, nondistended, positive bowel sounds Extremities: no cyanosis or clubbing; no edema Skin: warm and intact Objective Data Vital Signs Vital Signs: Vital Signs Temp Pulse Resp BP Pulse Ox 09/17/22 12:40 84 110/56 L 09/17/22 12:20 79 113/56 L 09/17/22 12:00 80 141/65 H 09/17/22 11:40 80 119/55 L 09/17/22 11:20 77 123/50 L 09/17/22 11:00 76 106/51 L 09/17/22 10:40 75 104/32 L 09/17/22 10:20 75 95/43 L 09/17/22 10:00 75 86/38 L 09/17/22 09:40 76 104/46 L 09/17/22 09:25 84 150/73 H 09/17/22 09:19 36.8 C 90 16 140/44 L 09/17/22 09:04 68 09/17/22 04:00 36.1 C L 60 18 143/70 H 95 09/16/22 20:46 36.2 C L 88 18 131/52 L 98 Intake/Output Intake/Output: Intake & Output 09/14/22 09/15/22 09/16/22 09/17/22 23:59 23:59 23:59 23:59 Intake Total 1800 870 730 730 Output Total 0 3000 1500 Balance 1800 -2130 730 -770 Meds/Results Medications: Active Medications Generic Name Dose Route Start Last Admin Trade Name Freq PRN Reason Stop Dose Admin Epoetin Ricardo-epbx 10,000 units 09/17/22 21:23 09/17/22 13:19 Epoetin Ricardo-Epbx 10,000 Units/Ml Vial IV PUSH 09/17/22 21:24 10,000 units ONCE ONE Administration Hydralazine HCl 10 mg 09/10/22 22:27 Hydralazine Hcl 20 Mg/Ml Vi
--- NOTE | 2022-09-17 13:08 | PCOTNOTE ---
Attempted to see patient at this time, however patient was still off floor for dialysis.
[2022-09-17] MEDS: SODIUM CHLORIDE 0.9% IV 1,000 ML 999 ML IV CONT (13:19)
[2022-09-17] MEDS: EPOETIN ALFA-EPBX 10,000 UNITS/ML VIAL 10000 UNITS IV PUSH (13:19)
[2022-09-18 03:29] VITALS: BP 114/57; PULSE 94; RESP 20; TEMP 36.1; O2SAT 95
[2022-09-18 06:43] LABS: Hematocrit 27.3 % (37.0-47.0); Hemoglobin 8.7 g/dL (12.0-15.0); Mean Corpuscular HGB Conc 31.9 g/dl (32-36); Mean Corpuscular Volume 94.1 fl (80-100); Mean Platelet Volume 9.2 fl (7.4-10.4); Platelet Count Result 232 k/mm3 (150-375)
[2022-09-18 07:07] LABS: Albumin Level 3.2 g/dL (3.5-5.1); Anion Gap 9 mmol/L (8-16); Blood Urea Nitrogen 20 mg/dL (7-17); Calcium 9.1 mg/dL (8.4-10.2); Carbon Dioxide 28 mmol/L (22-30); Chloride 96 mmol/L (98-107); Estimated CRCL calculation 14 ml/min; Estimated Glomerular Filt Rate 18; Glucose 102 mg/dL (65-110); Phosphorus 2.6 mg/dL (2.5-4.5); Potassium 3.7 mmol/L (3.4-5.0); Sodium 133 mmol/L (137-145)
[2022-09-18 10:05] VITALS: PULSE 94
[2022-09-18] MEDS: LABETALOL HCL 100 MG TABLET 200 MG PO (10:05)
--- NOTE | 2022-09-18 11:23 | PM.PNNEP ---
Progress Note: A&P Assessment and Plan (1) End stage renal disease: Code(s): N18.6 - End stage renal disease Status: Chronic Assessment and Plan: HD yesterday and continue outpatient schedule of M/W/F follow electrolytes, volume status, and clearance (2) Hypoxia: Code(s): R09.02 - Hypoxemia Status: Acute Assessment and Plan: suspect admission symptoms (chest pain and altered mental status) due to this issue was apparently on chronic oxygen therapy while at [facility] however, on discharge to half-way, she was not receiving any oxygen therapy suspect she may have been hypoxic for at least 12+ hours before her presentation to dialysis on Tuesday (09/10/22) stable oxygenation of current supplemental oxygen setting continue supportive therapy (3) Anemia: Code(s): D64.9 - Anemia, unspecified Status: Acute Assessment and Plan: low H/H noted by 09/12/22 AM labs due to ESRD and recent acute illness suspect frequent blood draws with last hospitalization at [facility] may be contributing Epogen with HD s/p PRBC transfusion adequate iron studies by anemia studies follow trend of H/H (4) Chest pain: Code(s): R07.9 - Chest pain, unspecified Status: Acute Assessment and Plan: no further complaints at this time suspect due to hypoxia rather than ACS troponin negative x 3 (5) Hypertension: Code(s): I10 - Essential (primary) hypertension Status: Chronic Assessment and Plan: reasonable control at this time discharge summary from [facility] indicates she was on amlodipine (10mg qday), losartan (100mg qday), coreg (25mg bid), hydralazine (100mg tid), and clonidine (0.2mg/24hr patch) not currently on this regimen but BP controlled follow trend of hemodynamics for now perhaps dialysis is helping keep BP stable (6) UTI (urinary tract infection): Code(s): N39.0 - Urinary tract infection, site not specified Status: Acute Assessment and Plan: admission UA highly suggestive blood/urine cultures so far negative on empiric antibiotics Not opposed to discharge from renal perspective when otherwise medically stable. Will continue to follow. Subjective Date/time seen: 09/18/22 11:23 Tolerated hemodialysis treatment yesterday without any issues or problems although fluid removal with HD treatment limited by hemodynamics; no new complaints or concerns voiced at this time; no apparent distress noted; no issues/events overnight or earlier this AM. Exam Narrative: General: elderly frail female in NAD Heart: normal S1 and S2; no rub Lungs: decreased at bases Abdomen: soft, nontender, nondistended, positive bowel sounds Extremities: no cyanosis or clubbing; no edema Skin: no rash Objective Data Vital Signs Vital Signs: Vital Signs Temp Pulse Resp BP Pulse Ox 09/18/22 10:05 94 09/18/22 03:29 36.1 C L 94 20 114/57 L 95 09/17/22 20:00 36.1 C L 95 16 134/55 L 97 09/17/22 13:13 36.9 C 86 16 135/67 Intake/Output Intake/Output: Intake & Output 09/15/22 09/16/22 09/17/22 09/18/22 23:59 23:59 23:59 23:59 Intake Total 042 811 5625 440 Output Total 3000 1500 Balance -2130 730 -290 440 Meds/Results Medications: Active Medications Generic Name Dose Route Start Last Admin Trade Name Freq PRN Reason Stop Dose Admin Hydralazine HCl 10 mg 09/10/22 22:27 Hydralazine Hcl 20 Mg/Ml Vial IV PUSH Q8H PRN Blood Pressure - High Albumin Human 50 mls @ 999 mls/hr 09/13/22 02:20 Albutein IVPB 10/13/22 02:19 Q10M PRN HYPOTENSION Labetalol HCl 200 mg 09/11/22 09:00 09/18/22 10:05 Labetalol Hcl 100 Mg Tablet PO 200 mg DAILY RENAE Administration Miconazole Nitrate 1 applic 09/13/22 09:00 09/18/22 10:06 Miconazole 2% Antifungal Ointment 56 Gm TOPICAL 1 applic Q12HR RENAE Administration Ondansetron HCl 4 mg 1
--- NOTE | 2022-09-18 11:23 | P.PNNP_ITS ---
Progress Note: A&P Assessment and Plan (1) End stage renal disease: Code(s): N18.6 - End stage renal disease Status: Chronic Assessment and Plan: * HD yesterday and continue outpatient schedule of M// * follow electrolytes, volume status, and clearance (2) Hypoxia: Code(s): R09.02 - Hypoxemia Status: Acute Assessment and Plan: * suspect admission symptoms (chest pain and altered mental status) due to this issue * was apparently on chronic oxygen therapy while at [facility] * however, on discharge to longterm, she was not receiving any oxygen therapy * suspect she may have been hypoxic for at least 12+ hours before her presentation to dialysis on Tuesday (09/10/22) * stable oxygenation of current supplemental oxygen setting * continue supportive therapy (3) Anemia: Code(s): D64.9 - Anemia, unspecified Status: Acute Assessment and Plan: * low H/H noted by 09/12/22 AM labs * due to ESRD and recent acute illness * suspect frequent blood draws with last hospitalization at [facility] may be contributing * Epogen with HD * s/p PRBC transfusion * adequate iron studies by anemia studies * follow trend of H/H (4) Chest pain: Code(s): R07.9 - Chest pain, unspecified Status: Acute Assessment and Plan: * no further complaints at this time * suspect due to hypoxia rather than ACS * troponin negative x 3 (5) Hypertension: Code(s): I10 - Essential (primary) hypertension Status: Chronic Assessment and Plan: * reasonable control at this time * discharge summary from [facility] indicates she was on amlodipine (10mg qday), losartan (100mg qday), coreg (25mg bid), hydralazine (100mg tid), and clonidine (0.2mg/24hr patch) * not currently on this regimen but BP controlled * follow trend of hemodynamics for now * perhaps dialysis is helping keep BP stable (6) UTI (urinary tract infection): Code(s): N39.0 - Urinary tract infection, site not specified Status: Acute Assessment and Plan: * admission UA highly suggestive * blood/urine cultures so far negative * on empiric antibiotics Not opposed to discharge from renal perspective when otherwise medically stable. Will continue to follow. Subjective Date/time seen: 09/18/22 11:23 Tolerated hemodialysis treatment yesterday without any issues or problems although fluid removal with HD treatment limited by hemodynamics; no new complaints or concerns voiced at this time; no apparent distress noted; no issues/events overnight or earlier this AM. Exam Narrative: General: elderly frail female in NAD Heart: normal S1 and S2; no rub Lungs: decreased at bases Abdomen: soft, nontender, nondistended, positive bowel sounds Extremities: no cyanosis or clubbing; no edema Skin: no rash Objective Data Vital Signs Vital Signs: Vital Signs Temp Pulse Resp BP Pulse Ox 09/18/22 10:05 94 09/18/22 03:29 36.1 C L 94 20 114/57 L 95 09/17/22 20:00 36.1 C L 95 16 134/55 L 97 09/17/22 13:13 36.9 C 86 16 135/67 Intake/Output Intake/Output: Intake & Output 09/15/22 09/16/22 09/17/22 09/18/22 23:59 23:59 23:59 23:59 Intake Total 676 848 4878 440 Output Total 3000 1500
--- NOTE | 2022-09-18 11:29 | PM.IMPN ---
Progress Note: A&P Assessment and Plan (1) Chest pain: Code(s): R07.9 - Chest pain, unspecified Status: Acute Assessment and Plan: no chest pain this morning. Workup unrevealing. (2) End-stage renal disease on hemodialysis: Code(s): N18.6 - End stage renal disease; Z99.2 - Dependence on renal dialysis Status: Acute Assessment and Plan: continue hemodialysis on discharge. (3) Hypertension: Code(s): I10 - Essential (primary) hypertension Status: Chronic Assessment and Plan: Pressure looks okay (4) Hypoxia: Code(s): R09.02 - Hypoxemia Status: Acute Assessment and Plan: improved. (5) UTI (urinary tract infection): Code(s): N39.0 - Urinary tract infection, site not specified Status: Acute Assessment and Plan: Antibiotics on discharge. (6) Gout: Code(s): M10.9 - Gout, unspecified Status: Acute Assessment and Plan: -the patient is on any medication at this time. Subjective Date/time seen: 09/18/22 11:29 no new complaints Exam Narrative: elderly frail Patient is comfortable, NAD HEENT: eyes are clear and none icteric LUNGS:CTA HEART: RR S1S2 ABD: BS+, Soft and nontender Lower extremities: no edema SKIN: nonjaundiced Neuro: grossly intact. Objective Data Vital Signs Vital Signs: Vital Signs - 24 hr 09/17/22 11:40 09/17/22 12:00 09/17/22 12:20 Temperature Pulse Rate 80 80 79 Respiratory Rate Blood Pressure 119/55 L 141/65 H 113/56 L Pulse Oximetry 09/17/22 12:40 09/17/22 13:00 09/17/22 13:03 Temperature Pulse Rate 84 86 89 Respiratory Rate Blood Pressure 110/56 L 107/54 L 112/50 L Pulse Oximetry 09/17/22 13:13 09/17/22 20:00 09/18/22 03:29 Temperature 98.4 F 97 F L 97.0 F L Pulse Rate 86 95 94 Respiratory Rate 16 16 20 Blood Pressure 135/67 134/55 L 114/57 L Pulse Oximetry 97 95 09/18/22 10:05 Temperature Pulse Rate 94 Respiratory Rate Blood Pressure Pulse Oximetry Intake/Output Intake/Output: Intake & Output 09/15/22 09/16/22 09/17/22 09/18/22 23:59 23:59 23:59 23:59 Intake Total 331 574 3241 440 Output Total 3000 1500 Balance -2130 730 -290 440 Meds/Results Medications: Active Medications Generic Name Dose Route Start Last Admin Trade Name Freq PRN Reason Stop Dose Admin Hydralazine HCl 10 mg 09/10/22 22:27 Hydralazine Hcl 20 Mg/Ml Vial IV PUSH Q8H PRN Blood Pressure - High Albumin Human 50 mls @ 999 mls/hr 09/13/22 02:20 Albutein IVPB 10/13/22 02:19 Q10M PRN HYPOTENSION Labetalol HCl 200 mg 09/11/22 09:00 09/18/22 10:05 Labetalol Hcl 100 Mg Tablet PO 200 mg DAILY RENAE Administration Miconazole Nitrate 1 applic 09/13/22 09:00 09/18/22 10:06 Miconazole 2% Antifungal Ointment 56 Gm TOPICAL 1 applic Q12HR RENAE Administration Ondansetron HCl 4 mg 09/10/22 16:51 Ondansetron Inj 4 Mg/2 Ml Vial IV PUSH Q4H PRN Nausea Radiology Results: ITS Impressions Chest X-Ray 09/10/22 14:56 IMPRESSION: 1. New elevation of the right hemidiaphragm with right infrahilar opacities which could represent associated atelectasis or pneumonia. Head CT 09/10/22 14:58 IMPRESSION: 1. No acute intracranial process. 2. 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 3. Moderate scattered white matter hypoattenuation consistent with chronic small vessel ischemic disease. Labs Labs: Laboratory Results - last 24 hr 09/18/22 09/18/22 06:05 06:05 WBC 8.0 RBC 2.90 L Hgb 8.7 L Hct 27.3 L MCV 94.1 MCH 30.0 MCHC 31.9 L RDW 16.0 H Plt Count 232 MPV 9.2 Sodium 133 L Potassium 3.7 Chloride 96 L Carbon Dioxide 28 Anion Gap 9 BUN 20 H D Creatinine 2.60 H Estim Creat Clear Calc 14 Estimated GFR 18
[2022-09-18 11:39] LABS: IFOB Positive Control Positive; Immunochemical Fecal Occult Bl Negative (N)
[2022-09-18 13:36] VITALS: BP 130/55; PULSE 88; RESP 14; TEMP 36.6; O2SAT 99
[2022-09-18 22:00] VITALS: BP 153/61; PULSE 85; RESP 14; TEMP 37; O2SAT 96
[2022-09-19 05:22] LABS: Hematocrit 28.4 % (37.0-47.0); Hemoglobin 8.8 g/dL (12.0-15.0); Mean Corpuscular Hemoglobin 29.5 pg (26-34); Mean Corpuscular Volume 95.3 fl (80-100); Mean Platelet Volume 8.9 fl (7.4-10.4); Platelet Count Result 229 k/mm3 (150-375); Red Blood Count 2.98 M/mm3 (4.2-5.4); Red Cell Distribution Width 16.2 % (11.5-14.5)
[2022-09-19 05:44] VITALS: BP 156/68; PULSE 94; RESP 16; TEMP 36.7; O2SAT 95
[2022-09-19 05:47] LABS: Albumin Level 3.2 g/dL (3.5-5.1); Anion Gap 7 mmol/L (8-16); Blood Urea Nitrogen 33 mg/dL (7-17); Calcium 9.3 mg/dL (8.4-10.2); Carbon Dioxide 25 mmol/L (22-30); Chloride 96 mmol/L (98-107); Estimated CRCL calculation 10 ml/min; Estimated Glomerular Filt Rate 12; Glucose 106 mg/dL (65-110); Phosphorus 3.2 mg/dL (2.5-4.5); Potassium 4.2 mmol/L (3.4-5.0); Sodium 128 mmol/L (137-145)
[2022-09-19 07:47] VITALS: PULSE 76
[2022-09-19] MEDS: LABETALOL HCL 100 MG TABLET 200 MG PO (07:47)
[2022-09-19 08:00] VITALS: O2SAT 95
--- NOTE | 2022-09-19 10:45 | P.PNNP_ITS ---
Progress Note: A&P Assessment and Plan (1) End stage renal disease: Code(s): N18.6 - End stage renal disease Status: Chronic Assessment and Plan: * HD tomorrow and continue outpatient schedule of M/W/ * follow electrolytes, volume status, and clearance (2) Hypoxia: Code(s): R09.02 - Hypoxemia Status: Acute Assessment and Plan: * resolved * suspect admission symptoms (chest pain and altered mental status) due to this issue * was apparently on chronic oxygen therapy while at [facility] * however, [facility], she was not receiving any oxygen thera py * suspect she may have been hypoxic for at least 12+ hours before her presentation to dialysis on Tuesday (09/10/22) * stable oxygenation at this time * weaned off oxygen and on room air * continue supportive therapy (3) Anemia: Code(s): D64.9 - Anemia, unspecified Status: Acute Assessment and Plan: * low H/H noted by 09/12/22 AM labs * due to ESRD and recent acute illness * suspect frequent blood draws with last hospitalization at [facility] may be contributing * Epogen with HD * s/p PRBC transfusion during this hospitalization * adequate iron studies by anemia studies * follow trend of H/H (4) Chest pain: Code(s): R07.9 - Chest pain, unspecified Status: Acute Assessment and Plan: * no further complaints at this time * suspect due to hypoxia rather than ACS * troponin negative x 3 (5) Hypertension: Code(s): I10 - Essential (primary) hypertension Status: Chronic Assessment and Plan: * reasonable control at this time * discharge summary from [facility] indicates she was on amlodipine (10mg qday), losartan (100mg qday), coreg (25mg bid), hydralazine (100mg tid), and clonidine (0.2mg/24hr patch) * not currently on this regimen but BP controlled * follow trend of hemodynamics for now * perhaps dialysis is helping keep BP stable (6) Hyponatremia: Code(s): E87.1 - Hypo-osmolality and hyponatremia Status: Acute Assessment and Plan: * suspect secondary to ESRD and possibly lung/respiratory issues * compensate with [employer]/dialysis (7) UTI (urinary tract infection): Code(s): N39.0 - Urinary tract infection, site not specified Status: Acute Assessment and Plan: * admission UA highly suggestive * blood/urine cultures so far negative * completed course of antibiotics Not opposed to discharge from renal perspective when otherwise medically stable. Will continue to follow. Subjective Date/time seen: 09/19/22 10:45 No apparent issues or problems to report at this time; no acute complaints voiced; overall, appears to be doing reasonably well; no events overnight or ear lier this morning. Exam Narrative: General: elderly frail female in NAD Heart: normal S1 and S2; no rub Lungs: decreased at bases Abdomen: soft, nontender, nondistended, positive bowel sounds Extremities: no cyanosis or clubbing; no edema Skin: warm and dry Objective Data Vital Signs Vital Signs: Vital Signs Temp Pulse Resp BP Pulse Ox O2 Del Method 09/19/22 08:00 95 Room Air 09/19/22 07:47 76 09/19/22 05:44 36.7 C 94 16 156/68 H 95 09/18/22 22:00 37.0 C 85 14 153/61 H 96 09/18/22 21:03 Room Air
--- NOTE | 2022-09-19 10:45 | PM.PNNEP ---
Progress Note: A&P Assessment and Plan (1) End stage renal disease: Code(s): N18.6 - End stage renal disease Status: Chronic Assessment and Plan: HD tomorrow and continue outpatient schedule of M/W/F follow electrolytes, volume status, and clearance (2) Hypoxia: Code(s): R09.02 - Hypoxemia Status: Acute Assessment and Plan: resolved suspect admission symptoms (chest pain and altered mental status) due to this issue was apparently on chronic oxygen therapy while at [facility] however, on discharge to [facility], she was not receiving any oxygen therapy suspect she may have been hypoxic for at least 12+ hours before her presentation to dialysis on Tuesday (09/10/22) stable oxygenation at this time weaned off oxygen and on room air continue supportive therapy (3) Anemia: Code(s): D64.9 - Anemia, unspecified Status: Acute Assessment and Plan: low H/H noted by 09/12/22 AM labs due to ESRD and recent acute illness suspect frequent blood draws with last hospitalization at [facility] may be contributing Epogen with HD s/p PRBC transfusion during this hospitalization adequate iron studies by anemia studies follow trend of H/H (4) Chest pain: Code(s): R07.9 - Chest pain, unspecified Status: Acute Assessment and Plan: no further complaints at this time suspect due to hypoxia rather than ACS troponin negative x 3 (5) Hypertension: Code(s): I10 - Essential (primary) hypertension Status: Chronic Assessment and Plan: reasonable control at this time discharge summary from [facility] indicates she was on amlodipine (10mg qday), losartan (100mg qday), coreg (25mg bid), hydralazine (100mg tid), and clonidine (0.2mg/24hr patch) not currently on this regimen but BP controlled follow trend of hemodynamics for now perhaps dialysis is helping keep BP stable (6) Hyponatremia: Code(s): E87.1 - Hypo-osmolality and hyponatremia Status: Acute Assessment and Plan: suspect secondary to ESRD and possibly lung/respiratory issues compensate with [employer]/dialysis (7) UTI (urinary tract infection): Code(s): N39.0 - Urinary tract infection, site not specified Status: Acute Assessment and Plan: admission UA highly suggestive blood/urine cultures so far negative completed course of antibiotics Not opposed to discharge from renal perspective when otherwise medically stable. Will continue to follow. Subjective Date/time seen: 09/19/22 10:45 No apparent issues or problems to report at this time; no acute complaints voiced; overall, appears to be doing reasonably well; no events overnight or earlier this morning. Exam Narrative: General: elderly frail female in NAD Heart: normal S1 and S2; no rub Lungs: decreased at bases Abdomen: soft, nontender, nondistended, positive bowel sounds Extremities: no cyanosis or clubbing; no edema Skin: warm and dry Objective Data Vital Signs Vital Signs: Vital Signs Temp Pulse Resp BP Pulse Ox O2 Del Method 09/19/22 08:00 95 Room Air 09/19/22 07:47 76 09/19/22 05:44 36.7 C 94 16 156/68 H 95 09/18/22 22:00 37.0 C 85 14 153/61 H 96 09/18/22 21:03 Room Air 09/18/22 14:00 Room Air 09/18/22 13:36 36.6 C 88 14 130/55 L 99 Intake/Output Intake/Output: Intake & Output 09/16/22 09/17/22 09/18/22 09/19/22 23:59 23:59 23:59 23:59 Intake Total 730 1210 920 480 Output Total 1500 Balance 730 -290 920 480 Meds/Results Medications: Active Medications Generic Name Dose Route Start Last Admin Trade Name Freq PRN Reason Stop Dose Admin Hydralazine HCl 10 mg 09/10/22 22:27 Hydralazine Hcl 20 Mg/Ml Vial IV PUSH Q8H PRN Blood Pressure - High Albumin Human 50 mls @ 999 mls/hr 09/13/22 02:20 Albutein IVPB 10/13/22 02:19 Q10M PRN HYPOTENSION Lab
--- NOTE | 2022-09-19 11:10 | PM.IMPN ---
Progress Note: A&P Assessment and Plan (1) Chest pain: Code(s): R07.9 - Chest pain, unspecified Status: Acute Assessment and Plan: no chest pain this morning. Workup unrevealing. (2) End-stage renal disease on hemodialysis: Code(s): N18.6 - End stage renal disease; Z99.2 - Dependence on renal dialysis Status: Acute Assessment and Plan: continue hemodialysis on discharge. (3) Hypertension: Code(s): I10 - Essential (primary) hypertension Status: Chronic Assessment and Plan: Pressure looks okay (4) Hypoxia: Code(s): R09.02 - Hypoxemia Status: Acute Assessment and Plan: improved. (5) UTI (urinary tract infection): Code(s): N39.0 - Urinary tract infection, site not specified Status: Acute Assessment and Plan: Antibiotics on discharge. (6) Gout: Code(s): M10.9 - Gout, unspecified Status: Acute Assessment and Plan: -the patient is on any medication at this time. Subjective Date/time seen: 09/19/22 11:10 No new complaints Exam Narrative: elderly frail Patient is comfortable, NAD HEENT: eyes are clear and none icteric LUNGS:CTA HEART: RR S1S2 ABD: BS+, Soft and nontender Lower extremities: no edema SKIN: nonjaundiced Neuro: grossly intact. Objective Data Vital Signs Vital Signs: Vital Signs - 24 hr 09/18/22 13:36 09/18/22 14:00 09/18/22 21:03 Temperature 97.9 F Pulse Rate 88 Respiratory Rate 14 Blood Pressure 130/55 L Pulse Oximetry 99 Oxygen Delivery Room Air Room Air 09/18/22 22:00 09/19/22 05:44 09/19/22 07:47 Temperature 98.6 F 98.1 F Pulse Rate 85 94 76 Respiratory Rate 14 16 Blood Pressure 153/61 H 156/68 H Pulse Oximetry 96 95 Oxygen Delivery 09/19/22 08:00 09/19/22 10:29 Temperature Pulse Rate Respiratory Rate Blood Pressure Pulse Oximetry 95 Oxygen Delivery Room Air Room Air Intake/Output Intake/Output: Intake & Output 09/16/22 09/17/22 09/18/22 09/19/22 23:59 23:59 23:59 23:59 Intake Total 730 1210 920 480 Output Total 1500 Balance 730 -290 920 480 Meds/Results Medications: Active Medications Generic Name Dose Route Start Last Admin Trade Name Freq PRN Reason Stop Dose Admin Hydralazine HCl 10 mg 09/10/22 22:27 Hydralazine Hcl 20 Mg/Ml Vial IV PUSH Q8H PRN Blood Pressure - High Albumin Human 50 mls @ 999 mls/hr 09/13/22 02:20 Albutein IVPB 10/13/22 02:19 Q10M PRN HYPOTENSION Labetalol HCl 200 mg 09/11/22 09:00 09/19/22 07:47 Labetalol Hcl 100 Mg Tablet PO 200 mg DAILY RENAE Administration Miconazole Nitrate 1 applic 09/13/22 09:00 09/19/22 07:19 Miconazole 2% Antifungal Ointment 56 Gm TOPICAL 1 applic Q12HR RENAE Administration Ondansetron HCl 4 mg 09/10/22 16:51 Ondansetron Inj 4 Mg/2 Ml Vial IV PUSH Q4H PRN Nausea Radiology Results: ITS Impressions Chest X-Ray 09/10/22 14:56 IMPRESSION: 1. New elevation of the right hemidiaphragm with right infrahilar opacities which could represent associated atelectasis or pneumonia. Head CT 09/10/22 14:58 IMPRESSION: 1. No acute intracranial process. 2. 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 3. Moderate scattered white matter hypoattenuation consistent with chronic small vessel ischemic disease. Labs Labs: Laboratory Results - last 24 hr 09/18/22 09/19/22 09/19/22 10:49 04:48 04:48 WBC 8.0 RBC 2.98 L Hgb 8.8 L Hct 28.4 L MCV 95.3 MCH 29.5 MCHC 31.0 L RDW 16.2 H Plt Count 229 MPV 8.9 Sodium 128 L Potassium 4.2 Chloride 96 L Carbon Dioxide 25 Anion Gap 7 L BUN 33 H D Creatinine 3.60 H Estim Creat Clear Calc 10 Estimated GFR 12 L Glucose 106 Calcium 9.3 Phosphorus 3.2
[2022-09-19 13:51] VITALS: BP 153/67; PULSE 96; RESP 18; TEMP 36.6; O2SAT 98
--- NOTE | 2022-09-19 16:11 | PC.NURSE ---
called [facility] pt urine beauchamp
--- NOTE | 2022-09-19 16:12 | PC.NURSE ---
n.o ns 50ml/hr x1 liter only, UA with C&S if indicated r/t beauchamp colored urine
[2022-09-19] MEDS: SODIUM CHLORIDE 0.9% IV 1,000 ML 50 ML IV CONT (16:25)
--- NOTE | 2022-09-19 18:11 | PC.NURSE ---
ua still needs collected unable to obtain.
--- NOTE | 2022-09-19 18:52 | PC.NURSE ---
attempted straight cath for urine sample, unable to obtain pt already voided.
[2022-09-19 20:30] VITALS: PULSE 86; RESP 18; O2SAT 96
[2022-09-19 21:22] VITALS: BP 116/75; PULSE 86; RESP 18; TEMP 36.5; O2SAT 96
[2022-09-20] VITALS (19 sets, daily range): BP systolic 93–178; BP diastolic 33–86; PULSE 67–111; RESP 16–18; TEMP 36–36.9; O2SAT 93–97
[2022-09-20 03:08] LABS: Appearance Urine Turbid (Clear); Bilirubin Urine 1+ (Negative); Blood Urine 2+ (Negative); Color Urine Yellow (Yellow); Glucose Urine UA Negative (Negative); Ketones Urine Trace mg/dL (Negative); Leukocyte Esterase Ur 3+ LEU/UL (Negative); Nitrate Urine Negative (Negative); Protein Urine 3+ mg/dL (Negative); Specific Grav Ur 1.025 (1.001-1.035); Urobilinogen Urine 0.2 mg/dL (<2.0); pH Urine 5.5 (5.0-9.0)
[2022-09-20 03:28] LABS: WBC Clumps Urine Present /HPF; WBC Urine >75 /hpf
[2022-09-20 03:30] LABS: Add Urine Microscopic? YES
[2022-09-20 05:36] LABS: Hematocrit 27.1 % (37.0-47.0); Hemoglobin 8.9 g/dL (12.0-15.0); Mean Corpuscular HGB Conc 32.8 g/dl (32-36); Mean Corpuscular Hemoglobin 30.5 pg (26-34); Mean Corpuscular Volume 92.8 fl (80-100); Platelet Count Result 222 k/mm3 (150-375); Red Blood Count 2.92 M/mm3 (4.2-5.4); Red Cell Distribution Width 15.8 % (11.5-14.5); White Blood Count 6.9 K/mm3 (4.5-10.0)
[2022-09-20 06:03] LABS: Albumin Level 3.2 g/dL (3.5-5.1); Anion Gap 9 mmol/L (8-16); Blood Urea Nitrogen 51 mg/dL (7-17); Calcium 9.5 mg/dL (8.4-10.2); Carbon Dioxide 24 mmol/L (22-30); Chloride 97 mmol/L (98-107); Estimated CRCL calculation 9 ml/min; Estimated Glomerular Filt Rate 10; Glucose 104 mg/dL (65-110); Phosphorus 4.6 mg/dL (2.5-4.5); Potassium 4.3 mmol/L (3.4-5.0); Sodium 130 mmol/L (137-145)
--- NOTE | 2022-09-20 08:58 | PCOTNOTE ---
Patient in dialysis this AM, will continue OT per plan of care.
[2022-09-20] MEDS: EPOETIN ALFA-EPBX 10,000 UNITS/ML VIAL 10000 UNITS IV PUSH (09:50)
[2022-09-20] MEDS: SODIUM CHLORIDE 0.9% IV 1,000 ML 999 ML IV CONT (09:51)
--- NOTE | 2022-09-20 09:56 | PM.IMPN ---
Progress Note: A&P Assessment and Plan (1) Chest pain: Code(s): R07.9 - Chest pain, unspecified Status: Acute Assessment and Plan: no chest pain this morning. Workup unrevealing. (2) End-stage renal disease on hemodialysis: Code(s): N18.6 - End stage renal disease; Z99.2 - Dependence on renal dialysis Status: Acute Assessment and Plan: continue hemodialysis on discharge. (3) Hypertension: Code(s): I10 - Essential (primary) hypertension Status: Chronic Assessment and Plan: Pressure looks okay (4) Hypoxia: Code(s): R09.02 - Hypoxemia Status: Acute Assessment and Plan: improved. (5) UTI (urinary tract infection): Code(s): N39.0 - Urinary tract infection, site not specified Status: Acute Assessment and Plan: Antibiotics on discharge. (6) Gout: Code(s): M10.9 - Gout, unspecified Status: Acute Assessment and Plan: -the patient is on any medication at this time. Subjective Date/time seen: 09/20/22 09:56 no complaints Exam Narrative: elderly frail Patient is comfortable, NAD HEENT: eyes are clear and none icteric LUNGS:CTA HEART: RR S1S2 ABD: BS+, Soft and nontender Lower extremities: no edema SKIN: nonjaundiced Neuro: grossly intact. Objective Data Vital Signs Vital Signs: Vital Signs - 24 hr 09/19/22 10:29 09/19/22 13:51 09/19/22 21:22 Temperature 97.9 F 97.7 F Pulse Rate 96 86 Respiratory Rate 18 18 Blood Pressure 153/67 H 116/75 Pulse Oximetry 98 96 Oxygen Delivery Room Air 09/19/22 20:30 09/20/22 05:19 09/20/22 08:49 Temperature 97.3 F L Pulse Rate 86 92 70 Respiratory Rate 18 18 Blood Pressure 144/86 H 177/70 H Pulse Oximetry 96 96 Oxygen Delivery Room Air 09/20/22 09:00 09/20/22 09:20 09/20/22 08:35 Temperature 98.0 F Pulse Rate 87 67 75 Respiratory Rate 16 Blood Pressure 178/79 H 149/55 H 153/70 H Pulse Oximetry Oxygen Delivery 09/20/22 09:40 Temperature Pulse Rate 108 H Respiratory Rate Blood Pressure 128/68 Pulse Oximetry Oxygen Delivery Intake/Output Intake/Output: Intake & Output 09/17/22 09/18/22 09/19/22 09/20/22 23:59 23:59 23:59 23:59 Intake Total 6536 801 3542 0 Output Total 1500 600 30 Balance -290 920 860 -30 Meds/Results Medications: Active Medications Generic Name Dose Route Start Last Admin Trade Name Freq PRN Reason Stop Dose Admin Epoetin Ricardo-epbx 10,000 units 09/20/22 18:41 09/20/22 09:50 Epoetin Ricardo-Epbx 10,000 Units/Ml Vial IV PUSH 09/20/22 18:42 10,000 units ONCE ONE Administration Hydralazine HCl 10 mg 09/10/22 22:27 Hydralazine Hcl 20 Mg/Ml Vial IV PUSH Q8H PRN Blood Pressure - High Albumin Human 50 mls @ 999 mls/hr 09/13/22 02:20 Albutein IVPB 10/13/22 02:19 Q10M PRN HYPOTENSION Sodium Chloride 1,000 mls @ 50 mls/hr 09/19/22 16:15 09/19/22 16:25 Normal Saline Iv IV CONT 50 mls/hr .Q20H RENAE Administration Labetalol HCl 200 mg 09/11/22 09:00 09/19/22 07:47 Labetalol Hcl 100 Mg Tablet PO 200 mg DAILY RENAE Administration Miconazole Nitrate 1 applic 09/13/22 09:00 09/19/22 20:27 Miconazole 2% Antifungal Ointment 56 Gm TOPICAL 1 applic Q12HR RENAE Administration Ondansetron HCl 4 mg 09/10/22 16:51 Ondansetron Inj 4 Mg/2 Ml Vial IV PUSH Q4H PRN Nausea Radiology Results: ITS Impressions Chest X-Ray 09/10/22 14:56 IMPRESSION: 1. New elevation of the right hemidiaphragm with right infrahilar opacities which could represent associated atelectasis or pneumonia. Head CT 09/10/22 14:58 IMPRESSION: 1. No acute intracranial process. 2. 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 3. Moderate scattered white matter hypoattenuation consistent with chronic small vessel isc
--- NOTE | 2022-09-20 10:47 | PCPTNOTE ---
The patient treatment was not able to be completed this morning on 09/20/2022 due to patient in dialysis. Will plan to continue treatment per plan of care.
--- NOTE | 2022-09-20 12:12 | P.PNNP_ITS ---
Progress Note: A&P Assessment and Plan (1) End stage renal disease: Code(s): N18.6 - End stage renal disease Status: Chronic Assessment and Plan: * HD today and continue outpatient schedule of M/W/ * follow electrolytes, volume status, and clearance (2) Hypoxia: Code(s): R09.02 - Hypoxemia Status: Acute Assessment and Plan: * resolved * suspect admission symptoms (chest pain and altered mental status) due to this issue * was apparently on chronic oxygen therapy while at [facility] * however, on discharge to skilled nursing, she was not receiving any oxygen therapy * suspect she may have been hypoxic for at least 12+ hours before her presentation to dialysis on Tuesday (09/10/22) * stable oxygenation at this time * weaned off oxygen and on room air * continue supportive therapy (3) Anemia: Code(s): D64.9 - Anemia, unspecified Status: Acute Assessment and Plan: * low H/H noted by 09/12/22 AM labs * due to ESRD and recent acute illness * suspect frequent blood draws with last hospitalization at [facility] may be con tributing * Epogen with HD * s/p PRBC transfusion during this hospitalization * adequate iron studies by anemia studies * follow trend of H/H (4) Chest pain: Code(s): R07.9 - Chest pain, unspecified Status: Acute Assessment and Plan: * no further complaints at this time * suspect due to hypoxia rather than ACS * troponin negative x 3 (5) Hypertension: Code(s): I10 - Essential (primary) hypertension Status: Chronic Assessment and Plan: * reasonable control at this time * discharge summary from 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 Will continue to follow. Subjective Date/time seen: 09/20/22 12:12 Tolerating hemodialysis treatment at the time of my visit (seen on HD at 11:55AM); breathing/respiratory status stable without the need for supplemental oxygen; no apparent distress noted; no issues/events overnight or earlier this morning. Exam Narrative: General: elderly frail female in NAD Heart: normal S1 and S2; no rub Lungs: decreased at bases Abdomen: soft, nontender, nondistended, positive bowel sounds Extremities: no cyanosis or clubbing; no edema Skin: warm and intact Objective Data Vital Signs Vital Signs: Vital Signs Temp Pulse Resp BP Pulse Ox O2 Del Method 09/20/22 12:00 111 H 95/50 L 09/20/22 11:40 107 H 93/33 L 09/20/22 11:20 108 H 102/43 L 09/20/22 11:00 109 H
--- NOTE | 2022-09-20 12:12 | PM.PNNEP ---
Progress Note: A&P Assessment and Plan (1) End stage renal disease: Code(s): N18.6 - End stage renal disease Status: Chronic Assessment and Plan: HD today and continue outpatient schedule of M/W/F follow electrolytes, volume status, and clearance (2) Hypoxia: Code(s): R09.02 - Hypoxemia Status: Acute Assessment and Plan: resolved suspect admission symptoms (chest pain and altered mental status) due to this issue was apparently on chronic oxygen therapy while at [facility] however, on discharge to custodial, she was not receiving any oxygen therapy suspect she may have been hypoxic for at least 12+ hours before her presentation to dialysis on Tuesday (09/10/22) stable oxygenation at this time weaned off oxygen and on room air continue supportive therapy (3) Anemia: Code(s): D64.9 - Anemia, unspecified Status: Acute Assessment and Plan: low H/H noted by 09/12/22 AM labs due to ESRD and recent acute illness suspect frequent blood draws with last hospitalization at [facility] may be contributing Epogen with HD s/p PRBC transfusion during this hospitalization adequate iron studies by anemia studies follow trend of H/H (4) Chest pain: Code(s): R07.9 - Chest pain, unspecified Status: Acute Assessment and Plan: no further complaints at this time suspect due to hypoxia rather than ACS troponin negative x 3 (5) Hypertension: Code(s): I10 - Essential (primary) hypertension Status: Chronic Assessment and Plan: reasonable control at this time discharge summary from [facility] indicates she was on amlodipine (10mg qday), losartan (100mg qday), coreg (25mg bid), hydralazine (100mg tid), and clonidine (0.2mg/24hr patch) not currently on this regimen but BP controlled follow trend of hemodynamics for now perhaps dialysis is helping keep BP stable (6) Hyponatremia: Code(s): E87.1 - Hypo-osmolality and hyponatremia Status: Acute Assessment and Plan: suspect secondary to ESRD and possibly lung/respiratory issues 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 Will continue to follow. Subjective Date/time seen: 09/20/22 12:12 Tolerating hemodialysis treatment at the time of my visit (seen on HD at 11:55AM); breathing/respiratory status stable without the need for supplemental oxygen; no apparent distress noted; no issues/events overnight or earlier this morning. Exam Narrative: General: elderly frail female in NAD Heart: normal S1 and S2; no rub Lungs: decreased at bases Abdomen: soft, nontender, nondistended, positive bowel sounds Extremities: no cyanosis or clubbing; no edema Skin: warm and intact Objective Data Vital Signs Vital Signs: Vital Signs Temp Pulse Resp BP Pulse Ox O2 Del Method 09/20/22 12:00 111 H 95/50 L 09/20/22 11:40 107 H 93/33 L 09/20/22 11:20 108 H 102/43 L 09/20/22 11:00 109 H 95/45 L 09/20/22 10:40 79 117/79 09/20/22 10:20 107 H 115/63 09/20/22 10:00 79 96/60 L 09/20/22 09:40 108 H 128/68 09/20/22 08:35 36.7 C 75 16 153/70 H 09/20/22 09:20 67 149/55 H 09/20/22 09:00 87 178/79 H 09/20/22 08:49 70 177/70 H 09/20/22 05:19 36.3 C L 92 18 144/86 H 96 09/19/22 20:30 86 18 96 Room Air 09/19/22 21:22 36.5 C 86 18 116/75 96 09/19/22 13:51 36.6 C 96 18 153/67 H 98 Intake/Output Intake/Output: Intake & Output 09/17/22 09/18/22 09/19/22 09/20/22 23:59 23:59 23:59 23:59 Intake Total 8188 750 0182 240 Output Total 1
[2022-09-20] MEDS: LABETALOL HCL 100 MG TABLET 200 MG PO (12:45)
--- NOTE | 2022-09-20 13:08 | PCNFU ---
Nutrition Follow-Up Complete: Suboptimal po intake related to reduced appetite and intake as evidenced by noted weight loss and charted intake of meals. Goal:PO intake 75% or greater for meals and supplements - goal not being met Pt current nutrition is Renal diet with Nepro BID. Nutrition recommendation: Continue current diet and supplement orders Last recorded weight is 57.8 kg. Bowel Motility: +1 BM 09/18/22 Labs Reviewed: Hgb 8.9, Hct 27.1, Alb 3.2, Na 130, GFR 10, BUN 51, Creat 4.3 Meds Noted: Zofran, hydrazaline, Labetalol Skin: Maceration Additional Notes: Pt says her appetite remains poor for the most part. She ate a few bites of lunch and did not want anymore. Discharge outpatient dialysis. Poor appetite likely related to kidney function. Monitor intake, wt, labs. Follow up in 7 days.
--- NOTE | 2022-09-20 13:43 | PCPTNOTE ---
Attempted to see patient for PT, however patient refused. Patient reported she is too tired at this time to work with therapy. Encouraged patient to participated patient continued to refuse.
[2022-09-21 05:43] LABS: Hematocrit 27.5 % (37.0-47.0); Hemoglobin 8.7 g/dL (12.0-15.0); Mean Corpuscular HGB Conc 31.6 g/dl (32-36); Mean Corpuscular Volume 94.8 fl (80-100); Mean Platelet Volume 9.2 fl (7.4-10.4); Platelet Count Result 173 k/mm3 (150-375); Red Cell Distribution Width 15.9 % (11.5-14.5); White Blood Count 7.2 K/mm3 (4.5-10.0)
[2022-09-21 05:44] VITALS: BP 140/86; PULSE 94; RESP 18; TEMP 36.2; O2SAT 95
[2022-09-21 05:58] LABS: Albumin Level 3.2 g/dL (3.5-5.1); Anion Gap 5 mmol/L (8-16); Blood Urea Nitrogen 29 mg/dL (7-17); Calcium 9.3 mg/dL (8.4-10.2); Carbon Dioxide 27 mmol/L (22-30); Chloride 100 mmol/L (98-107); Estimated CRCL calculation 13 ml/min; Estimated Glomerular Filt Rate 15; Glucose 114 mg/dL (65-110); Phosphorus 2.9 mg/dL (2.5-4.5); Potassium 4.3 mmol/L (3.4-5.0); Sodium 132 mmol/L (137-145)
[2022-09-21 08:29] VITALS: PULSE 75
[2022-09-21] MEDS: LABETALOL HCL 100 MG TABLET 200 MG PO (08:29)
--- NOTE | 2022-09-21 11:02 | P.PNNP_ITS ---
Progress Note: A&P Assessment and Plan (1) End stage renal disease: Code(s): N18.6 - End stage renal disease Status: Chronic Assessment and Plan: * HD tomorrow and continue outpatient schedule of M// * follow electrolytes, volume status, and clearance (2) Hypoxia: Code(s): R09.02 - Hypoxemia Status: Resolved Assessment and Plan: * resolved * suspect admission symptoms (chest pain and altered mental status) due to this issue * was apparently on chronic oxygen therapy while at [facility] * however, [facility], she was not receiving any oxygen th erapy * suspect she may have been hypoxic for at least 12+ hours before her presentation to dialysis on Tuesday (09/10/22) * stable oxygenation at this time * weaned off oxygen and on room air * continue supportive therapy (3) Anemia: Code(s): D64.9 - Anemia, unspecified Status: Acute Assessment and Plan: * low H/H noted by 09/12/22 AM labs * due to ESRD and recent acute illness * suspect frequent blood draws with last hospitalization at [facility] may have contributed * Epogen with HD * s/p PRBC transfusion during this hospitalization * adequate iron studies by anemia studies * follow trend of H/H (4) Chest pain: Code(s): R07.9 - Chest pain, unspecified Status: Acute Assessment and Plan: * no further complaints at this time * suspect due to hypoxia rather than ACS * troponin negative x 3 (5) Hypertension: Code(s): I10 - Essential (primary) hypertension Status: Chronic Assessment and Plan: * reasonable control at this time * discharge summary from [facility] indicates she was on amlodipine (10mg qday), losartan (100mg qday), coreg (25mg bid), hydralazine (100mg tid), and clonidine (0.2mg/24hr patch) * not currently on this regimen but BP controlled * follow trend of hemodynamics for now * perhaps dialysis is helping keep BP stable (6) Hyponatremia: Code(s): E87.1 - Hypo-osmolality and hyponatremia Status: Acute Assessment and Plan: * suspect secondary to ESRD and possibly lung/respiratory issues * 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 Will continue to follow. Subjective Date/time seen: 09/21/22 11:02 Tolerated dialysis treatment yesterday without any issues or problems; remains hemodynamically stable; respiratory status/breathing has improved significantly since admission (now on room air); no new events overnight or earlier this morning. Exam Narrative: General: elderly frail female in NAD Heart: normal S1 and S2; no rub Lungs: decreased at bases Abdomen: soft, nontender, nondistended, positive bowel sounds Extremities: no cyanosis or clubbing; no edema Skin: warm and intact Objective Data Vital Signs Vital Signs: Vital Signs Temp Pulse Resp BP Pulse Ox O2 Del Method 09/21/22 08:00 Room Air 09/21/22 08:29 75 09/21/22 05:44 97.1 F L 94 18 140/86 95 09/20/22 20:30 18
--- NOTE | 2022-09-21 11:02 | PM.PNNEP ---
Progress Note: A&P Assessment and Plan (1) End stage renal disease: Code(s): N18.6 - End stage renal disease Status: Chronic Assessment and Plan: HD tomorrow and continue outpatient schedule of M/W/F follow electrolytes, volume status, and clearance (2) Hypoxia: Code(s): R09.02 - Hypoxemia Status: Resolved Assessment and Plan: resolved suspect admission symptoms (chest pain and altered mental status) due to this issue was apparently on chronic oxygen therapy while at [facility] however, on discharge to senior care, she was not receiving any oxygen therapy suspect she may have been hypoxic for at least 12+ hours before her presentation to dialysis on Tuesday (09/10/22) stable oxygenation at this time weaned off oxygen and on room air continue supportive therapy (3) Anemia: Code(s): D64.9 - Anemia, unspecified Status: Acute Assessment and Plan: low H/H noted by 09/12/22 AM labs due to ESRD and recent acute illness suspect frequent blood draws with last hospitalization at [facility] may have contributed Epogen with HD s/p PRBC transfusion during this hospitalization adequate iron studies by anemia studies follow trend of H/H (4) Chest pain: Code(s): R07.9 - Chest pain, unspecified Status: Acute Assessment and Plan: no further complaints at this time suspect due to hypoxia rather than ACS troponin negative x 3 (5) Hypertension: Code(s): I10 - Essential (primary) hypertension Status: Chronic Assessment and Plan: reasonable control at this time discharge summary from 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 Will continue to follow. Subjective Date/time seen: 09/21/22 11:02 Tolerated dialysis treatment yesterday without any issues or problems; remains hemodynamically stable; respiratory status/breathing has improved significantly since admission (now on room air); no new events overnight or earlier this morning. Exam Narrative: General: elderly frail female in NAD Heart: normal S1 and S2; no rub Lungs: decreased at bases Abdomen: soft, nontender, nondistended, positive bowel sounds Extremities: no cyanosis or clubbing; no edema Skin: warm and intact Objective Data Vital Signs Vital Signs: Vital Signs Temp Pulse Resp BP Pulse Ox O2 Del Method 09/21/22 08:00 Room Air 09/21/22 08:29 75 09/21/22 05:44 97.1 F L 94 18 140/86 95 09/20/22 20:30 18 93 Room Air 09/20/22 20:48 98.2 F 93 18 130/52 L 97 09/20/22 15:04 97.2 F L 88 18 125/62 97 09/20/22 12:45 90 09/20/22 12:34 98.2 F 107 H 16 138/69 09/20/22 12:22 104 H 135/50 L 09/20/22 12:00 111 H 95/50 L 09/20/22 11:40 107 H 93/33 L 09/20/22 11:20 108 H 102/43 L Intake/Output Intake/Output: Intake & Output 09/18/22 09/19/22 09/20/22 09/21/22 23:59 23:59 23:59 23:59 Intake Total 920 1460 720 440 Output Total 600 2185 Balance 920 860 -1465 440 Meds/Results Medications: Active Medications Generic Name Dose Route Start Last Admin Trade Name Freq
--- NOTE | 2022-09-21 12:45 | PC.NURSE ---
Pt up with therapy to chair. Pt encouraged to sit and have lunch sitting up. Pt refusing to stay up in chair and moved herself back into bed setting off the chair alarm. Pt non compliant. Educated on the importance of why therapy wants her sitting up for a while and how she cannot move herself alone.
--- NOTE | 2022-09-21 13:17 | PM.DS ---
DS: Admitting Diagnosis Discharge Date September 21, 2022 Admitting Diagnosis chest pain DS: Discharge Diagnosis Discharge Diagnosis (1) Chest pain: Code(s): R07.9 - Chest pain, unspecified Status: Acute Assessment and Plan: no chest pain this morning. Workup unrevealing. (2) End-stage renal disease on hemodialysis: Code(s): N18.6 - End stage renal disease; Z99.2 - Dependence on renal dialysis Status: Acute Assessment and Plan: continue hemodialysis on discharge. (3) Hypertension: Code(s): I10 - Essential (primary) hypertension Status: Chronic Assessment and Plan: Pressure looks okay (4) Hypoxia: Code(s): R09.02 - Hypoxemia Status: Resolved Assessment and Plan: improved. (5) UTI (urinary tract infection): Code(s): N39.0 - Urinary tract infection, site not specified Status: Acute Assessment and Plan: Antibiotics on discharge. (6) Gout: Code(s): M10.9 - Gout, unspecified Status: Acute Assessment and Plan: -the patient is on any medication at this time. DS: Summary Hospital Course Hospital Course: patient admitted for chest pain. Negative workup. She was kept in the hospital to find a new nursing facility. Otherwise patient is medically stable she will need to follow up with Nephrology for hemodialysis. Patient can be discharged today Time Spent with Patient Time attestation: Total time spent providing and/or coordinating discharge services: Exam Narrative: elderly frail Patient is comfortable, NAD HEENT: eyes are clear and none icteric LUNGS:CTA HEART: RR S1S2 ABD: BS+, Soft and nontender Lower extremities: no edema SKIN: nonjaundiced Neuro: grossly intact. DS: Data Data Completed and Pending Labs on day of discharge: Labs from last 24 hours 09/21/22 09/21/22 05:29 05:29 WBC 7.2 RBC 2.90 L Hgb 8.7 L Hct 27.5 L MCV 94.8 MCH 30.0 MCHC 31.6 L RDW 15.9 H Plt Count 173 MPV 9.2 Sodium 132 L Potassium 4.3 Chloride 100 Carbon Dioxide 27 Anion Gap 5 L BUN 29 H D Creatinine 3.00 H Estim Creat Clear Calc 13 Estimated GFR 15 L Glucose 114 H Calcium 9.3 Phosphorus 2.9 Albumin 3.2 L Discharge Plan Discharge Attending physician on discharge: Freeman San Consulting providers: Leticia Reyes Discharging Clinician: Freeman San Patient Disposition: SNF Activity: no preference Diet: as tolerated Patient Instructions: Antibiotic Form, Chest Pain (DC) Stand Alone Forms: General Discharge Information Discharge Medications: Continued labetalol 200 mg tablet 200 mg PO DAILY hydrochlorothiazide 12.5 mg capsule 12.5 mg PO DAILY Date of admission: 09/10/22 16:51 Primary Care Provider: PHYSICIAN NOT ON STAFF,NONSTAFF Admitting Provider: Suzette Trejo Attending physician on admission: Suzette Trejo Condition: Stable
[2022-09-21 14:00] VITALS: BP 134/76; PULSE 89; RESP 18; TEMP 36.9; O2SAT 95
[2022-09-21 14:33] LABS: EDCOVIDSCREEN Negative (Negative)
== END 2022-09-21 17:15 ==
LOC: ANHED 15:09 → ANHIMU 22:34 → ANH3MED 09-14 18:56 → ANHIMU 09-22 12:47
PROVIDERS: Internal Medicine Nephrology; Nurse Practitioner; Admitting Provider Family Medicine; Emergency Provider General Practice; Visit Provider Chiropractor
DX: I12.0 Hypertensive chronic kidney disease with stage 5 chronic kidney disease or end stage renal disease (principal); N18.6 End stage renal disease; Z99.2 Dependence on renal dialysis; D63.1 Anemia in chronic kidney disease; R09.02 Hypoxemia; R53.83 Other fatigue; R07.9 Chest pain, unspecified; E87.1 Hypo-osmolality and hyponatremia; N39.0 Urinary tract infection, site not specified; R90.82 White matter disease, unspecified; M10.9 Gout, unspecified; F10.90 Alcohol use, unspecified, uncomplicated; H91.90 Unspecified hearing loss, unspecified ear; Z20.822 Contact with and (suspected) exposure to COVID-19; Z87.891 Personal history of nicotine dependence; Z79.899 Other long term (current) drug therapy
CPT/HCPCS: 36415; 36430; 36600; 70450; 71045; 80053; 80069; 81001; 82274; 82375; 82728; 82805; 83050; 83540; 83550; 83605; 83690; 83735; 83880; 84443; 84484; 85014; 85018; 85025; 85027; 85610; 85730; 86706; 86850; 86900; 86901; 86923; 87040; 87086; 87088; 87340; 87426; 87502; 93005; 96365; 96366; 96375; 96376; 97110; 97161; 97165; 97530; 97535; 99285; A9270; C9803; G0257; G0378; J0696; J1644; J7030; J7050; P9016; Q5105; U0003; U0005

== ENCOUNTER 2022-11-02 07:27 | Emergency (ER) | payer MEDICARE, SELFPAY ==
[2022-11-02] VITALS (37 sets, daily range): BP systolic 154–214; BP diastolic 65–105; PULSE 70–98; RESP 14–29; TEMP 36.7; O2SAT 97–99
--- NOTE | ~2022-11-02 | CT_ITS ---
EXAMINATION: CT brain wo con DATE: 11/02/2022 12:11 INDICATION: Headache TECHNIQUE: Computed tomography (CT) of the head was performed without intravenous contrast. The mA wa s adjusted according to patient size. Iterative reconstruction technique was employed. Exam dose: 12 10.67 mGy-cm total exam DLP. COMPARISON: 09/10/2022 CT brain 08/15/2022 CT brain FINDINGS: 2 sets of images were obtained due to motion artifact. Moderate central and cortical cerebral and cerebellar atrophy. Prominent bilateral carotid siphon int ernal carotid artery calcifications and right middle cerebral artery calcification. There is nonspecific diminished attenuation of the cerebral white matter, likely due to chronic small vessel ischemic changes. Mild bilateral basal ganglia calcification. No intracranial mass lesion or hemorrhage, midline shift or mass effect is detected. No subdural or epidural hematoma. Left frontal sinus 5 mm mucus retention cyst or polyp. The included paranasal sinuses and mastoid air cells are otherwise unremarkable. No fracture or bone destruction of the cranial vault. IMPRESSION: Cerebral atherosclerosis and chronic small vessel ischemic changes of the cerebral white matter No acute intracranial finding Reviewed, dictated and finalized at Location A. Reviewed, dictated and finalized at location L. 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
--- NOTE | ~2022-11-02 | XR_ITS ---
Clinical Indication: Hypertension AP and lateral views of the chest: Comparison: 09/10/2022 Findings: Stable right-sided central venous line present. The lungs are clear, without evidence of fo kristin consolidation or pleural effusion. Stable elevated right hemidiaphragm. Cardiomediastinal silhoue tte is within normal limits. Bones and soft tissues are unremarkable. Impression: Clear lungs. Stable support line. Stable elevation right hemidiaphragm. Reviewed, dictated and finalized at location M. RNMENT INSTRUCTOR Impression: Clear lungs. Stable support line. Stable elevation right hemidiaphragm.
--- NOTE | 2022-11-02 07:33 | ECG_ITS ---
Measurements Intervals [place] Rate: 84 P: 60 NM: 189 QRS: 42 QRSD: 92 T: 61 QT: 401 QTc: 477 Interpretive Statements SINUS RHYTHM FREQUENT VENTRICULAR PREMATURE COMPLEXES BASELINE ARTIFACT- V2 ABNORMAL ECG COMPARED TO ECG 09/10/2022 13:55:36 FREQUENT VENTRICULAR PREMATURE COMPLEXES NOW PRESENT Electronically Signed On 11-02-2022 8:36:02 IN HOME SALES REPRESENTATIVE by Edward Castaneda D.O.
[2022-11-02 07:47] LABS: Basophils Absolute Auto 0.1 K/mm3 (0.0-0.1); Basophils Percent Auto 1.4 % (0.2-1.2); Eosinophils Absolute Auto 0.1 K/mm3 (0-0.3); Eosinophils Percent Auto 2.1 % (0-4.4); Hematocrit 37.5 % (37.0-47.0); Hemoglobin 11.5 g/dL (12.0-15.0); Immature Granulocyte Absolute 0.01 K/mm3 (0.00-0.031); Immature Granulocyte Percent A 0.2 % (0-0.5); Lymphocytes Absolute Auto 2.13 K/mm3 (0.9-3.2); Lymphocytes Percent Auto 37.2 % (18.3-44.2); Mean Corpuscular HGB Conc 30.7 g/dl (32-36); Mean Corpuscular Hemoglobin 29.3 pg (26-34); Mean Corpuscular Volume 95.4 fl (80-100); Mean Platelet Volume 9.1 fl (7.4-10.4); Monocytes Absolute Auto 0.9 K/mm3 (0.1-0.6); Monocytes Percent Auto 16.4 % (2.6-8.5); Neutrophils Absolute Auto 2.5 K/mm3 (1.3-6.7); Neutrophils Percent Auto 42.7 % (45.5-73.1); Platelet Count Result 210 k/mm3 (150-375); Red Blood Count 3.93 M/mm3 (4.2-5.4); Red Cell Distribution Width 14.7 % (11.5-14.5); White Blood Count 5.7 K/mm3 (4.5-10.0)
[2022-11-02 07:56] LABS: Alanine Aminotransferase 14 U/L (6-35); Albumin Level 3.9 g/dL (3.5-5.1); Alkaline Phosphatase 85 U/L (38-126); Anion Gap 6 mmol/L (8-16); Aspartate Amino Transferase 23 U/L (14-36); Bilirubin,Total 0.3 mg/dL (0.2-1.3); Blood Urea Nitrogen 21 mg/dL (7-17); Calcium 9.1 mg/dL (8.4-10.2); Carbon Dioxide 31 mmol/L (22-30); Chloride 93 mmol/L (98-107); Estimated CRCL calculation 11 ml/min; Estimated Glomerular Filt Rate 13; Glucose 99 mg/dL (65-110); Potassium 3.6 mmol/L (3.4-5.0); Sodium 130 mmol/L (137-145)
[2022-11-02 08:02] LABS: INR 0.9; Prothrombin Time 12.1 Seconds (11.1-14.7)
[2022-11-02 08:03] LABS: Partial Thromboplastin Time 27.9 SECONDS (22.3-36.8)
[2022-11-02] MEDS: hydroCHLOROthiazide 12.5 MG CAPSULE PO (08:06)
[2022-11-02] MEDS: LABETALOL HCL 100 MG TABLET 200 MG PO (08:06)
[2022-11-02 08:08] LABS: NT Pro B Type Natriuretic Pept 6150 pg/mL (5-100); Troponin I 0.019 ng/mL (0.000-0.034)
--- NOTE | 2022-11-02 08:42 | PC.NURSE ---
Notified by [place] [employer] that pt had called 911 from her cellphone. Pt states she needed a blanket when asked by nurse why she called the police. Pt refuses to wear pulse ox monitor because it hurts .
--- NOTE | 2022-11-02 11:15 | PC.NURSE ---
Patient report received from GERA Ness. All questions answered and care of patient assumed. Patient resting quietly in stretcher with call-light in reach. Family present at bedside. Denies complaints. VSS. BP improved. Awaiting further orders and disposition. Will continue to address needs as they arise.
--- NOTE | 2022-11-02 11:40 | ED.GENADULT ---
HPI - General Adult General Chief complaint: Recheck/Abnormal Lab/Rx Stated complaint: htn Time Seen by Provider: 11/02/22 07:29 History of Present Illness HPI narrative: Patient is an 81-year-old female who [facility] due to complaints of elevated blood pressure. Systolic blood pressure in the 200s. Patient has no chest pain or chest pressure. No shortness of breath. Denies change in vision or hearing. Has history of head bleed recently. Denies new numbness or weakness arms or legs. Reports she is just concerned about her elevated blood pressure. She reports she has not yet taken her morning medications but has been compliant with her medications otherwise. Related Data Home Medications Medication Instructions Recorded Confirmed hydrochlorothiazide 12.5 mg capsule 12.5 mg PO DAILY 07/19/22 09/10/22 labetalol 200 mg tablet 200 mg PO DAILY 07/19/22 09/10/22 Allergies Allergy/AdvReac Type Severity Reaction Status Date / Time No Known Allergies Allergy Verified 11/02/22 07:54 Review of Systems Review of Systems: All systems reviewed & are unremarkable except as noted in HPI and below Constitutional: Constitutional: Denies chills, Denies fatigue and Denies fever(s) ENT: Denies nasal congestion and Denies sore throat Cardiovascular: Cardiovascular: Denies chest pain, Denies rapid heart rate and Denies radiating jaw, neck or arm pain Respiratory: Respiratory: Denies cough, Denies dyspnea and Denies wheezing Gastrointestinal: Gastrointestinal: Denies abdominal pain, Denies nausea and Denies vomiting Neurologic: Reports headache(s), Denies focal weakness and Denies numbness PMFSH Past Medical History Medical History (Updated 11/02/22 @ 11:42 by Salvatore Gillespie MD) End-stage renal disease on hemodialysis Gout Hypertension Surgical History Surgical History (Updated 09/10/22 @ 22:13 by Rae Wren NP) H/O cataract extraction H/O oophorectomy History of colonoscopy Hx of cholecystectomy Hx of parathyroidectomy Partial S/P appendectomy Family History Family History (Updated 09/11/22 @ 00:01 by Concepción Plunkett RN) Father Family history of elevated blood lipids Hypertension Sibling Family history of elevated blood lipids Hypertension Cancer of jaw Mother Myocardial infarction Social History Social History (Updated 09/10/22 @ 22:15 by Rae Wren NP) Social History: She is and retired. She has a son johnnie and a daughter Agnes listed as her contacts. Is reported that she is a lifelong nonsmoker. Code status full code Smoking status: Never smoker Second hand tobacco smoke exposure: No Alcohol intake: never Substance use: never Lack of Transportation: No Lack of Food: Never True Current Housing: I Do Not Have Housing Concerned About Future Housing: No Difficulty Paying Gas/Electric Bills: No Difficulty Paying for Meds: No Currently Unemployed: No Education: Grade School Difficulty w/ Childcare or Family Care: No Spiritual care concerns: No Exam Narrative: GENERAL: Well-appearing, well-nourished, and in no acute distress. HEAD: Normocephalic, atraumatic. EYES: PERRL and EOMI. ENT: Mucous membranes moist. CHEST: Clear to auscultation. No respiratory distress. Dialysis catheter right upper chest wall HEART: Regular rate and rhythm. No murmur heard. Normal peripheral pulses. ABDOMEN: Soft, nontender, nondistended. EXTREMITIES: Normal range of motion. No edema. SKIN: Warm, dry, no rash. NEURO: Alert and oriented x3. PSYCH: Normal mood and affect. Course Course Emergency Course: Patient resting in bed. Reports she would like to leave the hospital. Patient's daughter is present and at the bedside. We have reviewed the lab results. Discussed elevated BNP which may be a new normal in the setting of dialysis. There is no pulmonary edema and patient is not short of breath nor she requiring oxygen.
[2022-11-02] MEDS: LORazepam INJ (*CRX) 2 MG/ML VIAL 0.5 MG IV PUSH (12:13)
[2022-11-02] MEDS: hydrALAZINE HCL 20 MG/ML VIAL 10 MG IV PUSH (13:52)
== END 2022-11-02 14:39 ==
PROVIDERS: Emergency Provider Emergency Medicine
DX: I12.0 Hypertensive chronic kidney disease with stage 5 chronic kidney disease or end stage renal disease (principal); N18.6 End stage renal disease; Z99.2 Dependence on renal dialysis; Z98.49 Cataract extraction status, unspecified eye; E89.2 Postprocedural hypoparathyroidism; I67.2 Cerebral atherosclerosis
CPT/HCPCS: 36415; 70450; 71046; 80053; 83880; 84484; 85025; 85610; 85730; 93005; 96374; 96375; 99284; A9270; J0360; J2060

== ENCOUNTER 2022-12-10 08:21 | Emergency (ER) | payer MEDICARE, SELFPAY ==
--- NOTE | ~2022-12-10 | CT_ITS ---
EXAMINATION: CT cervical spine wo con DATE: 12/10/2022 09:20 INDICATION: Head injury TECHNIQUE: Computed tomography (CT) of the cervical spine was performed without intravenous contrast. The dose-length product (DLP) was 171.20 mGy-cm. Automated exposure control and iterative reconstruc tion technique were employed. COMPARISON: None FINDINGS: There are 2 mm of anterolisthesis of C3 on C4, C4 on C5, and C5 on C6. There is moderate lo ss of intervertebral disc space height and C6-7 and C7-T1. There is mild loss of intervertebral disc space height at C4-5 and C5-6. The odontoid process is intact. There is no fracture or prevertebral s oft tissues are normal. There is multilevel severe facet and uncovertebral joint osteoarthritis. Ther e is a partially imaged right internal jugular catheter. IMPRESSION: 1. Moderate cervical spondylosis without acute findings. Reviewed, dictated and finalized at location B. RNMENT EMPLOYEE
--- NOTE | ~2022-12-10 | CT_ITS ---
EXAMINATION: CT brain wo con INDICATION: Head injury COMPARISON: 11/02/2022 TECHNIQUE: Standard unenhanced head CT. The dose-length product (DLP) was 908.00 mGy-cm. The mA was a djusted according to patient size. Iterative reconstruction technique was employed. FINDINGS: There is a large frontal scalp hematoma of the forehead. A smaller left lateral frontal sca lp hematoma is noted. There is no acute intraparenchymal hemorrhage. No evidence of mass lesion. No e vidence of acute infarction. There is mild periventricular and subcortical hypodensity probably relat ed to small vessel ischemic disease. There is mild prominence of the sulci and ventricles related to cerebral atrophy. Intracranial calcified cerebral atherosclerosis is noted. There are no extra-axial collections. There is no mass effect or midline shift. Changes in the globes are likely from ocular l ens surgery. There is mild mucosal thickening of the paranasal sinuses. IMPRESSION: 1. Frontal scalp hematomas without acute intracranial abnormality. 2. Age related findings. Reviewed, dictated and finalized at location B. NG MACHINE CATCHER
[2022-12-10 08:22] VITALS: BP 257/115; PULSE 114; RESP 16; TEMP 36.8; O2SAT 97
--- NOTE | 2022-12-10 10:01 | ED.FALL ---
HPI - Fall General Chief Complaint: Fall Stated Complaint: ground level fall, head injury Time Seen by Provider: 12/10/22 08:58 Source: patient Mode of arrival: ambulatory Limitations: no limitations History of Present Illness HPI Narrative: Patient is an 81-year-old female who presents the ED via EMS with report of a fall. Patient is a resident of [facility]. She was just transferred to this facility from [facility] yesterday. She reports she was walking out of her bedroom today and did not have her shoes on when she tripped and fell. She denied feeling dizzy or lightheaded prior to the fall. She hit her head on the ground. She does not think she lost consciousness. She sustained hematoma to her frontal forehead and a small laceration to her upper lip region. Patient denies any other areas of pain. She has been able to stand and walk since the fall. Denies hip pain, neck pain, back pain, vision changes, nausea, vomiting, chest pain, difficulty breathing. Patient is not on any blood thinners. Patient is on dialysis Tuesday, scheduled for dialysis today at 10:[address] Reyes. Related Data Home Medications Medication Instructions Recorded Confirmed hydrochlorothiazide 12.5 mg capsule 12.5 mg PO DAILY 07/19/22 09/10/22 labetalol 200 mg tablet 200 mg PO DAILY 07/19/22 09/10/22 Allergies Allergy/AdvReac Type Severity Reaction Status Date / Time No Known Allergies Allergy Verified 11/02/22 07:54 Review of Systems Review of Systems: CONSTITUTIONAL: Denies fever, chills, or sweats. EYES: Denies visual changes. CARDIOVASCULAR: Denies chest pain, palpitations, or edema. RESPIRATORY: Denies cough or dyspnea. GASTROINTESTINAL: Denies abdominal pain, nausea, vomiting. MUSCULOSKELETAL: Denies neck pain, back pain, joint pain, or myalgia. NEUROLOGIC: See HPI. All systems reviewed & are unremarkable except as noted in HPI and below PMFSH Past Medical History Medical History End-stage renal disease on hemodialysis Gout Hypertension Surgical History Surgical History H/O cataract extraction H/O oophorectomy History of colonoscopy Hx of cholecystectomy Hx of parathyroidectomy Partial S/P appendectomy Family History Family History Father Family history of elevated blood lipids Hypertension Sibling Family history of elevated blood lipids Hypertension Cancer of jaw Mother Myocardial infarction Social History Social History Social History: She is and retired. She has a son johnnie and a daughter Agnes listed as her contacts. Is reported that she is a lifelong nonsmoker. Code status full code Smoking status: Never smoker Second hand tobacco smoke exposure: No Alcohol intake: never Substance use: never Lack of Transportation: No Lack of Food: Never True Current Housing: I Do Not Have Housing Concerned About Future Housing: No Difficulty Paying Gas/Electric Bills: No Difficulty Paying for Meds: No Currently Unemployed: No Education: Grade School Difficulty w/ Childcare or Family Care: No Spiritual care concerns: No Exam Narrative: GENERAL: Elderly, well-nourished, non-toxic, in no acute distress. HEAD: Normocephalic. Large contusion to frontal forehead with overlying skin tear, 0.5 cm deeper area of laceration within hematoma. No significant active bleeding. EYES: PERRLA/EOMI, conjunctiva clear. ENT: Mild ecchymosis over bridge of nose, no significant tenderness. Dried blood in nares. No septal hematoma. 0.5 cm laceration just to left philtrum, no active bleeding. NECK: Supple. No adenopathy, no masses. No significant midline spinal tenderness. RESPIRATORY: [place]
[2022-12-10 10:08] VITALS: PULSE 113
[2022-12-10] MEDS: LABETALOL HCL 100 MG TABLET 200 MG PO (10:08)
[2022-12-10] MEDS: hydroCHLOROthiazide 12.5 MG CAPSULE PO (10:08)
[2022-12-10 10:40] VITALS: BP 164/95; PULSE 80; RESP 12; O2SAT 95
== END 2022-12-10 10:40 ==
PROVIDERS: Emergency Provider Physician Assistant
DX: S01.81XA Laceration without foreign body of other part of head, initial encounter (principal); I12.0 Hypertensive chronic kidney disease with stage 5 chronic kidney disease or end stage renal disease; N18.6 End stage renal disease; Z99.2 Dependence on renal dialysis; Z98.49 Cataract extraction status, unspecified eye; E89.2 Postprocedural hypoparathyroidism; M47.812 Spondylosis without myelopathy or radiculopathy, cervical region; W01.0XXA Fall on same level from slipping, tripping and stumbling without subsequent striking against object, initial encounter
CPT/HCPCS: 12011; 70450; 72125; 99284; A9270

== ENCOUNTER 2023-01-24 11:17 | Observation (INO) | payer MEDICARE, SELFPAY ==
[2023-01-24] VITALS (22 sets, daily range): BP systolic 119–206; BP diastolic 53–107; PULSE 64–78; RESP 16–32; TEMP 36.3–36.9; O2SAT 96–100; BMI 21.2
--- NOTE | ~2023-01-24 | XR_ITS ---
EXAMINATION: XR chest 2V DATE: 01/24/2023 13:52 INDICATION: Shortness of breath. TECHNIQUE: Frontal and lateral views of the chest were obtained. COMPARISON: Chest 2 views 11/02/2022 FINDINGS: There is mild atelectasis in right lower lung zone and left mid and lower lung zones. No pl eural effusion or pneumothorax. The heart size is normal. There is a right internal jugular central v enous catheter with tip in superior vena cava. Surgical clips in the right upper quadrant are likely from cholecystectomy. IMPRESSION: 1. Mild atelectasis in right lower lung zone and left mid and lower lung zones. Reviewed, dictated and finalized at location A.
--- NOTE | 2023-01-24 12:40 | ECG_ITS ---
Measurements Intervals Sandy Rate: 66 P: 50 NH: 177 QRS: -7 QRSD: 95 T: 70 QT: 414 QTc: 435 Interpretive Statements SINUS RHYTHM LEFT VENTRICULAR HYPERTROPHY WITH ST-T CHANGE CONSIDER INFERIOR INFARCT, AGE INDETERMINATE ABNORMAL ECG COMPARED TO ECG 11/02/2022 07:31:25 NO SIGNIFICANT CHANGES Electronically Signed On 01-24-2023 12:56:34 CDT by Edward Castaneda D.O.
[2023-01-24 12:58] LABS: Basophils Percent Auto 0.4 % (0.2-1.2); Eosinophils Percent Auto 0.4 % (0-4.4); Hematocrit 41.7 % (37.0-47.0); Hemoglobin 13.5 g/dL (12.0-15.0); Immature Granulocyte Absolute 0.02 K/mm3 (0.00-0.031); Immature Granulocyte Percent A 0.2 % (0-0.5); Lymphocytes Absolute Auto 1.48 K/mm3 (0.9-3.2); Lymphocytes Percent Auto 16.3 % (18.3-44.2); Mean Corpuscular HGB Conc 32.4 g/dl (32-36); Mean Corpuscular Hemoglobin 28.8 pg (26-34); Mean Corpuscular Volume 88.9 fl (80-100); Mean Platelet Volume 8.5 fl (7.4-10.4); Monocytes Absolute Auto 0.7 K/mm3 (0.1-0.6); Monocytes Percent Auto 7.8 % (2.6-8.5); Neutrophils Absolute Auto 6.8 K/mm3 (1.3-6.7); Neutrophils Percent Auto 74.9 % (45.5-73.1); Platelet Count Result 211 k/mm3 (150-375); Red Blood Count 4.69 M/mm3 (4.2-5.4); Red Cell Distribution Width 15.7 % (11.5-14.5); White Blood Count 9.1 K/mm3 (4.5-10.0)
--- NOTE | 2023-01-24 13:13 | ED.WEAKNESS ---
HPI - Weakness General Chief complaint: Weakness <BRITTANY Coombs Last Filed: 01/24/23 19:38> Stated complaint: Weakness <BRITTANY Coombs Last Filed: 01/24/23 19:38> Time Seen by Provider: 01/24/23 12:40 <BRITTANY Coombs Last Filed: 01/24/23 19:38> Source: patient and old records reviewed <BRITTANY Coombs Last Filed: 01/24/23 19:38> Mode of arrival: EMS <BRITTANY Coombs Last Filed: 01/24/23 19:38> Limitations: no limitations <BRITTANY Coombs Last Filed: 01/24/23 19:38> History of Present Illness HPI Narrative: Patient is a 82 y/o female who presents to the ED via EMS with report of weakness and diarrhea. Patient has a history of end-stage renal disease and is on hemodialysis Tuesday, Tuesday, Tuesday, sees Dr. Reyes. Patient reports she has felt weak and unwell the last couple of days. She was on her way to dialysis today when she had diarrhea. When she arrived at the dialysis facility, her blood pressure was noted to be low, EMS was then called to bring the patient here. Patient had another episode of nonbloody, nonmelanotic diarrhea upon arrival to the ED. Patient denies any abdominal pain, nausea, vomiting, CP, new/worsening SOB, fevers, cough or cold sx's, urinary sx's, focal weakness. <BRITTANY Coombs Last Filed: 01/24/23 19:38> Related Data Home medications: Home Medications Medication Instructions Recorded Confirmed alprazolam 0.25 mg tablet 0.25 mg PO PRN Anxiety 01/24/23 buspirone 5 mg tablet 5 mg PO TID anxiety 01/24/23 01/24/23 lisinopril 20 mg tablet 20 mg PO DAILY 01/24/23 01/24/23 <BRITTANY Coombs Last Filed: 01/24/23 19:38> Allergies/Adverse reactions: Allergies Allergy/AdvReac Type Severity Reaction Status Date / Time No Known Allergies Allergy Verified 01/24/23 13:07 <Shayy Stringer PA-C - Last Filed: 01/24/23 19:38> Review of Systems Review of Systems: CONSTITUTIONAL: Denies fever, chills, or sweats. CARDIOVASCULAR: Denies chest pain. RESPIRATORY: Denies cough or worsening dyspnea. GASTROINTESTINAL: See HPI. GENITOURINARY: Denies dysuria or hematuria. SKIN: Denies rash or itching. MUSCULOSKELETAL: Denies back pain, joint pain, or myalgia. NEUROLOGIC: See HPI. <Shayy Stringer PA-C - Last Filed: 01/24/23 19:38> All systems reviewed & are unremarkable except as noted in HPI and below <Shayy Stringer PA-C - Last Filed: 01/24/23 19:38> [facility] Past Medical History Medical History: Medical History End-stage renal disease on hemodialysis Gout Hypertension <Shayy Stringer PA-C - Last Filed: 01/24/23 19:38> Surgical History Surgical History: Surgical History H/O cataract extraction H/O oophorectomy History of colonoscopy Hx of cholecystectomy Hx of parathyroidectomy Partial S/P appendectomy <Shayy Stringer PA-C - Last Filed: 01/24/23 19:38> Family History Family History: Family History Father Family history of elevated blood lipids Hypertension Sibling Family history of elevated blood lipids Hypertension Cancer of jaw Mother Myocardial infarction <Shayy Stringer PA-C - Last Filed: 01/24/23 19:38> Social History Social History: Social History Social History: She is and retired. She has a son cold and a daughter Agnes listed as her contacts. Is reported that she is a lifelong nonsmoker. Code status full code Smoking status: Never smoker Second hand tobacco smoke exposure: No Alcohol intake: never Substance use: never Lack of Transportation: No Lack of Food: Never True Current Housing: I D
[2023-01-24 13:42] LABS: Alanine Aminotransferase 18 U/L (6-35); Albumin Level 4.1 g/dL (3.5-5.1); Alkaline Phosphatase 85 U/L (38-126); Anion Gap 13 mmol/L (8-16); Aspartate Amino Transferase 20 U/L (14-36); Bilirubin,Total 0.8 mg/dL (0.2-1.3); Blood Urea Nitrogen 55 mg/dL (7-17); Calcium 9.1 mg/dL (8.4-10.2); Carbon Dioxide 25 mmol/L (22-30); Chloride 88 mmol/L (98-107); Estimated CRCL calculation 8 ml/min; Estimated Glomerular Filt Rate 8; Glucose 109 mg/dL (65-110); Potassium 4.3 mmol/L (3.4-5.0); Sodium 126 mmol/L (137-145)
[2023-01-24 15:59] LABS: Influenza A QL RT-PCR Negative (Negative); Influenza B QL RT-PCR Negative (Negative); SARS-CoV-2 RNA PCR Negative
[2023-01-24 16:37] LABS: Appearance Urine Turbid (Clear); Bacteria Urine 4+ /hpf; Bilirubin Urine Negative (Negative); Blood Urine 2+ (Negative); Budding Yeast Urine Present /hpf; Color Urine Yellow (Yellow); Glucose Urine UA Negative (Negative); Ketones Urine Trace mg/dL (Negative); Leukocyte Esterase Ur 3+ LEU/UL (Negative); Need Manual Microscopic Reviewed; Nitrate Urine Negative (Negative); Protein Urine 3+ mg/dL (Negative); Specific Grav Ur 1.013 (1.001-1.035); Squamous Epithelial Cell Urine Occasional /hpf (Few); Urobilinogen Urine 0.2 mg/dL (<2.0); WBC Urine >100 /hpf; pH Urine 5.5 (5.0-9.0)
[2023-01-24 16:39] LABS: Add Urine Microscopic? YES
--- NOTE | 2023-01-24 20:02 | PM.IMHP ---
H&P: HPI History of Present Illness Date/Time: 01/24/23 20:02 Chief Complaint: Generalized weakness Narrative: This is an 82-year-old female with past medical history significant for end-stage renal disease on hemodialysis, hypertension, generalized anxiety disorder, patient resides at assisted living facility. Was brought to the emergency room for evaluation due to generalized weakness, patient denies any fevers, rigors, chills, nausea, vomiting, pain or burning with urination, known cough no sputum production, no leg swelling, no lightheadedness, no syncope or near syncope, no falls. Preliminary workup was significant for urinalysis with numerous WBCs present. Patient received Rocephin in the emergency room. Been admitted for further evaluation management and treatment. Review of Systems Review of Systems: Not feeling well generalized weakness Constitutional: Constitutional: Reports body ache(s), Denies chills, Reports fatigue, Denies fever(s), Reports lethargy, Reports malaise, Reports poor appetite and Reports weakness Eyes: Eyes: Denies change in vision ENT: Denies dysphagia and Denies odynophagia Cardiovascular: Cardiovascular: Denies chest pain, Denies leg edema and Denies palpitations Respiratory: Respiratory: Denies chest congestion, Denies cough, Denies pain on inspiration and Denies dyspnea Gastrointestinal: Gastrointestinal: Denies abdominal pain, Denies dyspepsia, Denies heartburn, Denies diarrhea, Denies nausea and Denies vomiting Genitourinary: Genitourinary: Denies dysuria Musculoskeletal: Musculoskeletal: Reports muscle weakness Integumentary/Breasts: Skin/Breast: Denies rash Neurologic: Denies focal weakness and Denies Sensory deficit (Neuro) Psychiatric: Psychiatric: Reports no additional psychiatric complaints and Reports as per HPI Endocrine: Endocrine: Denies cold intolerance, Denies flushing, Denies heat intolerance, Denies polyphagia, Denies polydipsia and Denies palpitations Hematologic/Lymphatic: Hematologic/Lymphatic: Reports no additional hematologic/lymphatic complaints and Reports as per HPI Allergic/Immunologic: Allergic/Immunologic: Reports no additional allergic/immunologic complaints and Reports as per HPI PMF Past Medical History Medical History End-stage renal disease on hemodialysis Gout Hypertension Surgical History Surgical History H/O cataract extraction H/O oophorectomy History of colonoscopy Hx of cholecystectomy Hx of parathyroidectomy Partial S/P appendectomy Family History Family History Father Family history of elevated blood lipids Hypertension Sibling Family history of elevated blood lipids Hypertension Cancer of jaw Mother Myocardial infarction Social History Social History Social History: She is and retired. She has a son johnnie and a daughter Agnes listed as her contacts. Is reported that she is a lifelong nonsmoker. Code status full code Smoking status: Former smoker Second hand tobacco smoke exposure: No Alcohol intake: never Substance use: never Lack of Transportation: No Lack of Food: Never True Current Housing: I Have Housing Concerned About Future Housing: No Difficulty Paying Gas/Electric Bills: No Difficulty Paying for Meds: No Currently Unemployed: No Education: Bachelor's Degree Difficulty w/ Childcare or Family Care: No Spiritual care concerns: No Meds Home Medications and Allergies Home Medications Medication Instructions Recorded Confirmed Type labetalol 200 mg tablet 200 mg PO BID #60 tabs 01/05/23 01/05/23 Rx alprazolam 0.25 mg tablet 0.25 mg PO PRN Anxiety 01/24/23 History buspirone 5 mg tablet 5 mg PO TID anxiety 01/24/23 01/24/23
[2023-01-24] MEDS: LABETALOL HCL 100 MG TABLET 200 MG PO (20:21)
[2023-01-24] MEDS: busPIRone HCL 5 MG TABLET PO (20:21)
[2023-01-24] MEDS: FLUCONAZOLE 150 MG TABLET PO (20:22)
--- NOTE | 2023-01-24 21:59 | PC.NURSE ---
Pt was incontinent of bowel. She had large liquid bowel movement. Dr. Salmeron notified and was given telephone order for c-diff test given.
--- NOTE | 2023-01-24 23:03 | ADMGEN ---
This patient, Kirsty Rea, was admitted to [facility] Surg Room 322-02. Patient/family oriented to hospital policies and general routines including ID bracelet, bed and alarms, visiting hours, pain management, procedures, bathroom and other care routines, personal items, smoking policy, room service/diet, and visiting hours. Information on how to activate the Rapid Response Team has been discussed. Patient/Family are encouraged to report perceived risks to care and to ask questions if they do not understand what they are told or what they should do.
[2023-01-24] MEDS: LABETALOL HCL 100 MG TABLET PO (23:56)
[2023-01-24] MEDS: lisinopriL 20 MG TABLET PO (23:56)
[2023-01-24] MEDS: ALPRAZolam (*CRX) 0.25 MG TABLET PO (23:56)
[2023-01-25] VITALS (7 sets, daily range): BP systolic 187–197; BP diastolic 70–79; PULSE 64–101; RESP 18–22; TEMP 35.9–36.4; O2SAT 95–98; BMI 21.2
--- NOTE | 2023-01-25 00:23 | PC.NURSE ---
pt c/o sob o2 sat 96% ra, pt have abnormal ekg in Ed, informed MD Salmeron, bp medication given for elevated bp, inquired if troponin levels needed, no new orders at this time per MD Salmeron.
[2023-01-25] MEDS: ALPRAZolam (*CRX) 0.25 MG TABLET PO ×2 (06:14→19:59)
[2023-01-25] MEDS: hydrALAZINE HCL 20 MG/ML VIAL 10 MG IV PUSH (06:32)
[2023-01-25] MEDS: busPIRone HCL 2.5 MG TABLET PO ×2 (09:55→19:59)
[2023-01-25] MEDS: LABETALOL HCL 100 MG TABLET PO ×2 (09:55→19:59)
[2023-01-25] MEDS: lisinopriL 20 MG TABLET PO (10:32)
--- NOTE | 2023-01-25 11:54 | PM.CNNEP ---
Assessment and Plan Assessment and plan (1) End stage renal disease: Code(s): N18.6 - End stage renal disease Status: Chronic Assessment and Plan: HD tomorrow and continue M/W/F schedule follow electrolytes, volume status, and clearance (2) UTI (urinary tract infection): Qualifiers: Hematuria presence: with hematuria Urinary tract infection type: acute cystitis Qualified Code(s): N30.01 - Acute cystitis with hematuria Code(s): N39.0 - Urinary tract infection, site not specified Status: Acute Assessment and Plan: suggestive by admission UA on antibiotics follow culture data supportive therapy (3) Hyponatremia: Code(s): E87.1 - Hypo-osmolality and hyponatremia Status: Acute Assessment and Plan: related to GI losses (diarrhea), free water intake, and ESRD dialysis will help correct follow trend of sodium (4) Generalized weakness: Code(s): R53.1 - Weakness Status: Acute Assessment and Plan: possibly secondary to UTI/acute illness PT/OT when able (5) Hypertension: Code(s): I10 - Essential (primary) hypertension Status: Chronic Assessment and Plan: can fluctuate to extremes resume home medications follow trend of hemodynamcis. History of Present Illness Reason for Consult Consult date: 01/25/23 Reason for consult: end stage renal disease Chief Complaint Chief complaint: Generalized Weakness,UTI,Hyponatremia,ESRD on Hemo History of Present Illness Narrative: Most of the information I obtained is from review of the electronic medical record, discussion with the ER provider in the emergency room yesterdaya fternoon, as well as her outpatient dialysis center as it is difficult to get a full and complete history from the patient due to her baseline confusion The patient is an 82-year-old female with a past medical history as outlined below who presented to [facility] Emergency room from her dialysis center yesterday for further evaluation of generalized weakness and hypotension. She apparently presented to her outpatient dialysis unit yesterday afternoon for her scheduled dialysis treatment. While she was in the waiting room, she apparently had a episode of diarrhea and when the dialysis nurses went to assess her, she seemed to be somewhat confused in comparison to her baseline. Further assessment showed her blood pressure in the 90 systolic when she is usually hypertensive. Given the acute confusion, low blood pressure, and her diarrhea which apparently has been going on for last several days, she was transferred to the emergency room for further assessment Workup and evaluation in the emergency room as she demonstrated that her blood pressure was somewhat better than what it was on presentation to her outpatient dialysis unit as she was actually hypertensive. Routine blood test demonstrated labs consistent with her known history of end-stage renal disease and the patient herself did not give any acute complaints with regard to fevers, chills, nausea, vomiting, productive cough, syncope, or any other subjective symptoms. Her urinalysis was somewhat suggestive of a urinary tract infection and given the confusion and the previous low blood pressure, appropriate cultures were obtained and she was started on IV antibiotic therapy with subsequent admission to the hospital for further evaluation and therapy. Since her admission, she has remained somewhat hypertensive with slow reinstitution of her home blood pressure medications. Her mentation seems to be doing somewhat better as well. Renal consultation was requested due to her end-stage renal disease. The patient is quite familiar to me as I take care of her outpatient dialysis needs. She normally dialyzes on a Tuesday, Tuesday, Tuesday dialysis schedule under my care at [facility]. She is usually compliant with her dialysi
--- NOTE | 2023-01-25 15:31 | PM.IMPN ---
Progress Note: A&P Assessment and Plan (1) UTI (urinary tract infection): Qualifiers: Hematuria presence: with hematuria Urinary tract infection type: acute cystitis Qualified Code(s): N30.01 - Acute cystitis with hematuria Code(s): N39.0 - Urinary tract infection, site not specified Status: Acute Assessment and Plan: Admit to regular medical floor On Rocephin Cultures in progress Supportive care Continue to monitor (2) Generalized weakness: Code(s): R53.1 - Weakness Status: Acute Assessment and Plan: Likely secondary to acute illness PT OT when clinically able to participate (3) Hyponatremia: Code(s): E87.1 - Hypo-osmolality and hyponatremia Status: Acute Assessment and Plan: 126 on admission Likely secondary to GI losses Has had significant diarrhea Received some normal saline Continue to monitor Will recheck and monitor (4) End-stage renal disease on hemodialysis: Code(s): N18.6 - End stage renal disease; Z99.2 - Dependence on renal dialysis Status: Acute Assessment and Plan: Continue hemodialysis Nephrology consult for inpatient hemodialysis Recently started on hemodialysis few weeks (5) Hypertension: Code(s): I10 - Essential (primary) hypertension Status: Chronic Assessment and Plan: Uncontrolled Restart home meds Continue to monitor add amlodipine Subjective Date/time seen: 01/25/23 15:31 Interval history: Feels well. Presented with Generalized weakness. Found to have UTI. No shortness of breath chest pain chest x-ray was negative. Review of Systems Review of Systems: All systems reviewed & are unremarkable except as noted in HPI and below Exam Narrative: GENERAL: Elderly, well-nourished, non-toxic, in no acute distress. HEAD: Normocephalic, atraumatic. NECK: Supple. No adenopathy, no masses. RESPIRATORY: Airway patent, respirations nonlabored. Clear to auscultation bilaterally, no rales, rhonchi, wheezing.? No focal lung sounds. CARDIOVASCULAR: Regular rate and rhythm without murmurs, rubs, or gallops. Peripheral pulses 2+ and equal bilaterally. ABDOMINAL: Soft, no significant tenderness to palpation. Nondistended, no hepatosplenomegaly. Normoactive BS. MUSCULOSKELETAL: Moves all extremities. Strength/ROM intact without gross deformities. SKIN: Warm, dry, normal color. No rashes. NEURO: A&O X3. [place]. Speech clear. Cranial nerves II-XII grossly intact. Steady gait. No ataxic movements.? No focal deficits. PSYCHIATRIC: Appropriate mood and affect. Normal interaction. Objective Data Vital Signs Vital Signs: Vital Signs - 24 hr 01/24/23 16:13 01/24/23 16:32 01/24/23 20:21 Temperature Pulse Rate 74 71 76 Respiratory Rate 20 20 Blood Pressure 124/81 185/82 H Pulse Oximetry 100 98 Oxygen Delivery 01/24/23 19:02 01/24/23 19:32 01/24/23 20:02 Temperature Pulse Rate 75 73 76 Respiratory Rate 26 H 25 H 32 H Blood Pressure 206/82 H 203/82 H 206/81 H Pulse Oximetry 97 97 Oxygen Delivery 01/24/23 21:32 01/24/23 22:02 01/24/23 22:32 Temperature Pulse Rate 72 71 77 Respiratory Rate 20 22 H 20 Blood Pressure 185/80 H 171/62 H 159/81 H Pulse Oximetry 96 98 98 Oxygen Delivery 01/24/23 23:22 01/24/23 23:42 01/24/23 23:56 Temperature 97.4 F L 97.4 F L Pulse Rate 64 64 66 Respiratory Rate 16 16 Blood Pressure 204/77 H 204/77 H Pulse Oximetry 97 97 Oxygen Delivery Room Air 01/25/23 00:49 01/25/23 06:37 01/25/23 09:55 Temperature 97.6 F Pulse Rate 101 H 64 Respiratory Rate 22 H Blood Pressure 197/77 H 196/70 H Pulse Oximetry 96 Oxygen Delivery 01/25/23 14:00 Temperature 96.6 F L Pulse Rate 64 Respiratory Rate 18 Blood Pressure 193/79 H Pulse Oximetry 98 Oxygen Delivery Intake/Output Intake/Output: Intake & Output 01/22/23 01/23/23 01/24/23 01/25/23 23:59 23:59 23:59 23:59 Intake Total 50 700 Balance 50
[2023-01-25 16:05] LABS: Basophils Absolute Auto 0.1 K/mm3 (0.0-0.1); Basophils Percent Auto 0.5 % (0.2-1.2); Eosinophils Absolute Auto 0.2 K/mm3 (0-0.3); Eosinophils Percent Auto 2.1 % (0-4.4); Hematocrit 38.6 % (37.0-47.0); Hemoglobin 12.7 g/dL (12.0-15.0); Immature Granulocyte Absolute 0.04 K/mm3 (0.00-0.031); Immature Granulocyte Percent A 0.4 % (0-0.5); Lymphocytes Absolute Auto 1.63 K/mm3 (0.9-3.2); Lymphocytes Percent Auto 17.9 % (18.3-44.2); Mean Corpuscular HGB Conc 32.9 g/dl (32-36); Mean Corpuscular Volume 88.1 fl (80-100); Mean Platelet Volume 8.7 fl (7.4-10.4); Monocytes Absolute Auto 0.7 K/mm3 (0.1-0.6); Neutrophils Absolute Auto 6.5 K/mm3 (1.3-6.7); Neutrophils Percent Auto 71.1 % (45.5-73.1); Platelet Count Result 214 k/mm3 (150-375); Red Blood Count 4.38 M/mm3 (4.2-5.4); White Blood Count 9.1 K/mm3 (4.5-10.0)
[2023-01-25 16:16] LABS: Alanine Aminotransferase 16 U/L (6-35); Albumin Level 3.7 g/dL (3.5-5.1); Alkaline Phosphatase 81 U/L (38-126); Anion Gap 12 mmol/L (8-16); Aspartate Amino Transferase 19 U/L (14-36); Bilirubin,Total 0.6 mg/dL (0.2-1.3); Blood Urea Nitrogen 62 mg/dL (7-17); Carbon Dioxide 22 mmol/L (22-30); Chloride 90 mmol/L (98-107); Estimated CRCL calculation 8 ml/min; Estimated Glomerular Filt Rate 8; Glucose 109 mg/dL (65-110); Magnesium 1.9 mg/dL (1.6-2.3); Potassium 3.9 mmol/L (3.4-5.0); Sodium 124 mmol/L (137-145)
[2023-01-25] MEDS: amLODIPine BESYLATE 5 MG TABLET PO (17:20)
--- NOTE | 2023-01-25 18:47 | PC.NURSE ---
Pt has been resting in bed. Pt ambulates to the bathroom with assistance. Pt has reported no pain and expresses no needs at this time. Pt able to answer A&O questions appropriately. Will continue to monitor pt.
[2023-01-26] VITALS (21 sets, daily range): BP systolic 90–209; BP diastolic 67–106; PULSE 68–105; RESP 16–20; TEMP 35.9–36.8; O2SAT 96
[2023-01-26 06:27] LABS: Basophils Absolute Auto 0.1 K/mm3 (0.0-0.1); Basophils Percent Auto 0.6 % (0.2-1.2); Eosinophils Absolute Auto 0.2 K/mm3 (0-0.3); Eosinophils Percent Auto 2.7 % (0-4.4); Hematocrit 41.5 % (37.0-47.0); Hemoglobin 13.8 g/dL (12.0-15.0); Immature Granulocyte Absolute 0.02 K/mm3 (0.00-0.031); Immature Granulocyte Percent A 0.2 % (0-0.5); Lymphocytes Absolute Auto 1.57 K/mm3 (0.9-3.2); Lymphocytes Percent Auto 18.7 % (18.3-44.2); Mean Corpuscular HGB Conc 33.3 g/dl (32-36); Mean Corpuscular Hemoglobin 28.8 pg (26-34); Mean Corpuscular Volume 86.5 fl (80-100); Mean Platelet Volume 8.9 fl (7.4-10.4); Monocytes Absolute Auto 0.6 K/mm3 (0.1-0.6); Monocytes Percent Auto 6.7 % (2.6-8.5); Neutrophils Percent Auto 71.1 % (45.5-73.1); Platelet Count Result 243 k/mm3 (150-375); Red Cell Distribution Width 14.6 % (11.5-14.5); White Blood Count 8.4 K/mm3 (4.5-10.0)
[2023-01-26 06:35] LABS: Anion Gap 14 mmol/L (8-16); Blood Urea Nitrogen 61 mg/dL (7-17); Calcium 9.7 mg/dL (8.4-10.2); Carbon Dioxide 20 mmol/L (22-30); Chloride 97 mmol/L (98-107); Estimated CRCL calculation 8 ml/min; Estimated Glomerular Filt Rate 8; Glucose 91 mg/dL (65-110); Magnesium 1.9 mg/dL (1.6-2.3); Potassium 3.9 mmol/L (3.4-5.0); Sodium 131 mmol/L (137-145)
[2023-01-26 07:14] LABS: Hepatitis B Surface Antigen Negative (Negative)
[2023-01-26 07:31] LABS: Hepatitis B Surface Anti Res Negative
--- NOTE | 2023-01-26 12:22 | PM.PNNEP ---
Progress Note: A&P Assessment and Plan (1) End stage renal disease: Code(s): N18.6 - End stage renal disease Status: Chronic Assessment and Plan: HD today and continue M/W/ schedule follow electrolytes, volume status, and clearance (2) UTI (urinary tract infection): Qualifiers: Hematuria presence: with hematuria Urinary tract infection type: acute cystitis Qualified Code(s): N30.01 - Acute cystitis with hematuria Code(s): N39.0 - Urinary tract infection, site not specified Status: Acute Assessment and Plan: suggestive by admission UA on antibiotics urine culture with Klebsiella supportive therapy (3) Hyponatremia: Code(s): E87.1 - Hypo-osmolality and hyponatremia Status: Acute Assessment and Plan: related to GI losses (diarrhea), free water intake, and ESRD dialysis will help correct some follow trend of sodium (4) Generalized weakness: Code(s): R53.1 - Weakness Status: Acute Assessment and Plan: possibly secondary to UTI/acute illness PT/OT when able (5) Hypertension: Code(s): I10 - Essential (primary) hypertension Status: Chronic Assessment and Plan: can fluctuate to extremes resume home medications follow trend of hemodynamcis. Subjective Date/time seen: 01/26/23 12:22 She appears to be tolerating her dialysis treatment at the time of my visit (seen on HD at 12:00pm); mentation seems to be stable if not batter at this time; appears less anxious and in no apparent distress. Exam Narrative: General: elderly frail female in NAD Heart: normal S1 and S2; no rub Lungs: decreased at bases Abdomen: soft, nontender, nondistended, positive bowel sounds Extremities: no cyanosis or clubbing; no edema Skin: warm and dry Objective Data Vital Signs Vital Signs: Vital Signs Temp Pulse Resp BP Pulse Ox O2 Del Method 01/26/23 11:20 97 175/92 H 01/26/23 11:00 95 188/91 H 01/26/23 10:40 90 189/93 H 01/26/23 10:20 88 190/95 H 01/26/23 10:00 92 171/86 H 01/26/23 09:40 86 209/93 H 01/26/23 09:31 83 180/83 H 01/26/23 09:24 98.3 F 88 16 201/92 H 01/26/23 06:00 96.7 F L 96 18 153/80 H 96 01/25/23 21:55 96.9 F L 70 20 187/73 H 95 01/25/23 19:59 66 01/25/23 19:24 98 Room Air 01/25/23 14:00 96.6 F L 64 18 193/79 H 98 Intake/Output Intake/Output: Intake & Output 01/23/23 01/24/23 01/25/23 01/26/23 23:59 23:59 23:59 23:59 Intake Total 50 1070 200 Balance 50 1070 200 Meds/Results Medications: Active Medications Generic Name Dose Route Start Last Admin Trade Name Freq PRN Reason Stop Dose Admin Alprazolam 0.25 mg 01/24/23 23:34 01/25/23 19:59 Alprazolam (*Crx) 0.25 Mg Tablet PO 0.25 mg TID PRN Administration Anxiety Amlodipine Besylate 5 mg 01/25/23 15:40 01/26/23 11:25 Amlodipine Besylate 5 Mg Tablet PO Not Given QAM [facility] Buspirone HCl 2.5 mg 01/25/23 09:00 01/26/23 11:25 Buspirone Hcl 2.5 Mg Tablet PO Not Given Q12HR [facility] Ceftriaxone Sodium 1 gm in 50 mls @ 100 mls/hr 01/25/23 17:00 01/25/23 17:50 Rocephin 1 Gm/Ns 50 Ml IVPB Infused Q24H [facility] Infusion Albumin Human 50 mls @ 999 mls/hr 01/25/23 23:59 Albutein IVPB 02/24/23 23:58 Q10M PRN HYPOTENSION Labetalol HCl 100 mg 01/24/23 23:41 01/26/23 11:26 Labetalol Hcl 100 Mg Tablet PO Not Given Q12HR [facility] Lisinopril 20 mg 01/24/23 23:41 01/26/23 11:26 Lisinopril 20 Mg Tablet PO Not Given QAM [facility] Miconazole Nitrate 1 applic 01/25/23 09:00 01/25/23 19:59 Miconazole 2% Antifungal Ointment 56 Gm TOPICAL 1 applic Q12HR [facility] Administration Radiology Results: ITS Impressions Chest X-Ray 01/24/23 13:55 IMPRESSION: 1. Mild atelectasis in right lower lung zone and left mid and lower lung zones. Labs Labs:
--- NOTE | 2023-01-26 12:23 | PM.IMPN ---
Progress Note: A&P Assessment and Plan (1) UTI (urinary tract infection): Qualifiers: Hematuria presence: with hematuria Urinary tract infection type: acute cystitis Qualified Code(s): N30.01 - Acute cystitis with hematuria Code(s): N39.0 - Urinary tract infection, site not specified Status: Acute Assessment and Plan: Admit to regular medical floor On Rocephin Cultures in progress Supportive care Continue to monitor (2) Generalized weakness: Code(s): R53.1 - Weakness Status: Acute Assessment and Plan: Likely secondary to acute illness PT OT (3) Hyponatremia: Code(s): E87.1 - Hypo-osmolality and hyponatremia Status: Acute Assessment and Plan: Improving Likely secondary to GI losses Has had significant diarrhea Received some normal saline Continue to monitor (4) End-stage renal disease on hemodialysis: Code(s): N18.6 - End stage renal disease; Z99.2 - Dependence on renal dialysis Status: Acute Assessment and Plan: Continue hemodialysis Nephrology consult for inpatient hemodialysis (5) Hypertension: Code(s): I10 - Essential (primary) hypertension Status: Chronic Assessment and Plan: Uncontrolled Restart home meds Continue to monitor add amlodipine Subjective Date/time seen: 01/26/23 12:23 No new issues overnight Review of Systems Review of Systems: As per HPI. Exam Narrative: GENERAL APPEARANCE: eldlery well developed well nourished female in no acute distress HEENT: normocephalic, atraumatic, normal conjunctiva and sclera, nares patient NECK: no lymphadenopathy, thyromegaly, or JVD MOUTH: normal lips, teeth, and gums CARDIOVASCULAR: RRR, normal S1 and S2, no rub RESPIRATORY: clear to auscultation bilaterally ABDOMEN: soft, nontender, nondistended, positive bowel sounds present EXTREMITIES: no evidence of cyanosis, clubbing, or edema NEUROLOGICAL: alert and alert; CN II - XII intact bilaterally; no focal deficits noted Objective Data Vital Signs Vital Signs: Vital Signs - 24 hr 01/25/23 14:00 01/25/23 19:24 01/25/23 19:59 Temperature 96.6 F L Pulse Rate 64 66 Respiratory Rate 18 Blood Pressure 193/79 H Pulse Oximetry 98 98 Oxygen Delivery Room Air 01/25/23 21:55 01/26/23 06:00 01/26/23 09:24 Temperature 96.9 F L 96.7 F L 98.3 F Pulse Rate 70 96 88 Respiratory Rate 20 18 16 Blood Pressure 187/73 H 153/80 H 201/92 H Pulse Oximetry 95 96 Oxygen Delivery 01/26/23 09:31 01/26/23 09:40 01/26/23 10:00 Temperature Pulse Rate 83 86 92 Respiratory Rate Blood Pressure 180/83 H 209/93 H 171/86 H Pulse Oximetry Oxygen Delivery 01/26/23 10:20 01/26/23 10:40 01/26/23 11:00 Temperature Pulse Rate 88 90 95 Respiratory Rate Blood Pressure 190/95 H 189/93 H 188/91 H Pulse Oximetry Oxygen Delivery 01/26/23 11:20 Temperature Pulse Rate 97 Respiratory Rate Blood Pressure 175/92 H Pulse Oximetry Oxygen Delivery Intake/Output Intake/Output: Intake & Output 01/23/23 01/24/23 01/25/23 01/26/23 23:59 23:59 23:59 23:59 Intake Total 50 / 50 1070 / 1070 200 / 200 Balance 50 / 50 1070 / 1070 200 / 200 Meds/Results Medications: Active Medications Generic Name Dose Route Start Last Admin Trade Name Freq PRN Reason Stop Dose Admin Alprazolam 0.25 mg 01/24/23 23:34 01/25/23 19:59 Alprazolam (*Crx) 0.25 Mg Tablet PO 0.25 mg TID PRN Administration Anxiety Amlodipine Besylate 5 mg 01/25/23 15:40 01/26/23 11:25 Amlodipine Besylate 5 Mg Tablet PO Not Given QAM [facility] Buspirone HCl 2.5 mg 01/25/23 09:00 01/26/23 11:25 Buspirone Hcl 2.5 Mg Tablet PO Not Given Q12HR [facility] Ceftriaxone Sodium 1 gm in 50 mls @ 100 mls/hr 01/25/23 17:00 01/25/23 17:50 Rocephin 1 Gm/Ns 50 Ml IVPB Infused Q24H [facility] Infusion Albumin Human 50 mls @ 999 mls/hr 01/25/23 23:59 Albutein
[2023-01-26] MEDS: ALPRAZolam (*CRX) 0.25 MG TABLET PO ×2 (16:28→22:07)
[2023-01-26] MEDS: SULFAMETHOXAZOLE/TRIMETHOPRIM 800/160 MG DS TABLET 1 TAB PO (18:07)
[2023-01-26] MEDS: LABETALOL HCL 100 MG TABLET PO (22:09)
[2023-01-26] MEDS: busPIRone HCL 2.5 MG TABLET PO (22:10)
[2023-01-27 06:00] VITALS: BP 192/82; PULSE 82; RESP 18; TEMP 36.2; O2SAT 94
[2023-01-27] MEDS: amLODIPine BESYLATE 5 MG TABLET PO (06:32)
[2023-01-27] MEDS: lisinopriL 20 MG TABLET PO (06:34)
[2023-01-27 08:44] VITALS: PULSE 80
[2023-01-27] MEDS: busPIRone HCL 2.5 MG TABLET PO (08:44)
[2023-01-27] MEDS: LABETALOL HCL 100 MG TABLET PO (08:44)
[2023-01-27] MEDS: SULFAMETHOXAZOLE/TRIMETHOPRIM 400/80 MG TABLET 1 TAB PO (08:47)
[2023-01-27 08:50] VITALS: PULSE 80; O2SAT 97
[2023-01-27 10:17] LABS: Anion Gap 8 mmol/L (8-16); Blood Urea Nitrogen 33 mg/dL (7-17); Calcium 9.2 mg/dL (8.4-10.2); Carbon Dioxide 28 mmol/L (22-30); Chloride 94 mmol/L (98-107); Estimated CRCL calculation 11 ml/min; Estimated Glomerular Filt Rate 11; Glucose 135 mg/dL (65-110); Potassium 3.5 mmol/L (3.4-5.0); Sodium 130 mmol/L (137-145)
--- NOTE | 2023-01-27 11:04 | PM.IMPN ---
Progress Note: A&P Assessment and Plan (1) UTI (urinary tract infection): Qualifiers: Hematuria presence: with hematuria Urinary tract infection type: acute cystitis Qualified Code(s): N30.01 - Acute cystitis with hematuria Code(s): N39.0 - Urinary tract infection, site not specified Status: Acute Assessment and Plan: Finished course of Rocephin Supportive care Continue to monitor (2) Generalized weakness: Code(s): R53.1 - Weakness Status: Acute Assessment and Plan: Likely secondary to acute illness PT OT (3) Hyponatremia: Code(s): E87.1 - Hypo-osmolality and hyponatremia Status: Acute Assessment and Plan: Improving Likely secondary to GI losses Has had significant diarrhea Received some normal saline Continue to monitor (4) End-stage renal disease on hemodialysis: Code(s): N18.6 - End stage renal disease; Z99.2 - Dependence on renal dialysis Status: Acute Assessment and Plan: Continue hemodialysis Nephrology consult for inpatient hemodialysis (5) Hypertension: Code(s): I10 - Essential (primary) hypertension Status: Chronic Assessment and Plan: Uncontrolled Restart home meds Continue to monitor added amlodipine Subjective Date/time seen: 01/27/23 11:04 No overnight event Review of Systems Review of Systems: As per HPI. Exam Narrative: GENERAL APPEARANCE: eldlery well developed well nourished female in no acute distress HEENT: normocephalic, atraumatic, normal conjunctiva and sclera, nares patient NECK: no lymphadenopathy, thyromegaly, or JVD MOUTH: normal lips, teeth, and gums CARDIOVASCULAR: RRR, normal S1 and S2, no rub RESPIRATORY: clear to auscultation bilaterally ABDOMEN: soft, nontender, nondistended, positive bowel sounds present EXTREMITIES: no evidence of cyanosis, clubbing, or edema NEUROLOGICAL: alert and alert; CN II - XII intact bilaterally; no focal deficits noted Objective Data Vital Signs Vital Signs: Vital Signs - 24 hr 01/26/23 11:20 01/26/23 11:40 01/26/23 12:00 Temperature Pulse Rate 97 105 H 101 H Respiratory Rate Blood Pressure 175/92 H 184/106 H 159/89 H Pulse Oximetry Oxygen Delivery 01/26/23 12:20 01/26/23 12:40 01/26/23 13:00 Temperature Pulse Rate 97 100 68 Respiratory Rate Blood Pressure 133/76 154/82 H 90/74 L Pulse Oximetry Oxygen Delivery 01/26/23 13:05 01/26/23 13:10 01/26/23 14:00 Temperature 98.1 F 97.9 F Pulse Rate 88 95 86 Respiratory Rate 20 18 Blood Pressure 146/88 H 175/78 H 151/67 H Pulse Oximetry 96 Oxygen Delivery 01/26/23 22:09 01/26/23 20:00 01/26/23 22:00 Temperature 97.2 F L Pulse Rate 80 80 94 Respiratory Rate 18 20 Blood Pressure 163/81 H Pulse Oximetry 96 96 Oxygen Delivery Room Air 01/27/23 06:00 01/27/23 08:44 01/27/23 08:50 Temperature 97.1 F L Pulse Rate 82 80 80 Respiratory Rate 18 Blood Pressure 192/82 H Pulse Oximetry 94 97 Oxygen Delivery Room Air Intake/Output Intake/Output: Intake & Output 01/24/23 01/25/23 01/26/23 01/27/23 23:59 23:59 23:59 23:59 Intake Total 50 / 50 1070 / 1070 940 / 940 100 / 100 Output Total 2650 / 2650 Balance 50 / 50 1070 / 1070 -1710 / -1710 100 / 100 Meds/Results Medications: Active Medications Generic Name Dose Route Start Last Admin Trade Name Freq PRN Reason Stop Dose Admin Alprazolam 0.25 mg 01/24/23 23:34 01/26/23 22:07 Alprazolam (*Crx) 0.25 Mg Tablet PO 0.25 mg TID PRN Administration Anxiety Amlodipine Besylate 5 mg 01/25/23 15:40 01/27/23 06:32 Amlodipine Besylate 5 Mg Tablet PO 5 mg QAM [facility] Administration Buspirone HCl 2.5 mg 01/25/23 09:00 01/27/23 08:44 Buspirone Hcl 2.5 Mg Tablet PO 2.5 mg Q12HR [facility] Administration Albumin Human 50 mls @ 999 mls/hr 01/25/23 23:59 Albutein IVPB 02/24/23 23:58 Q10M PRN HYPOTENSIO
--- NOTE | 2023-01-27 12:35 | PM.PNNEP ---
Progress Note: A&P Assessment and Plan (1) End stage renal disease: Code(s): N18.6 - End stage renal disease Status: Chronic Assessment and Plan: HD today and continue M// schedule follow electrolytes, volume status, and clearance (2) UTI (urinary tract infection): Qualifiers: Hematuria presence: with hematuria Urinary tract infection type: acute cystitis Qualified Code(s): N30.01 - Acute cystitis with hematuria Code(s): N39.0 - Urinary tract infection, site not specified Status: Acute Assessment and Plan: suggestive by admission UA on antibiotics urine culture with Enterobacter supportive therapy (3) Hyponatremia: Code(s): E87.1 - Hypo-osmolality and hyponatremia Status: Acute Assessment and Plan: related to GI losses (diarrhea), free water intake, and ESRD dialysis will help correct some follow trend of sodium (4) Generalized weakness: Code(s): R53.1 - Weakness Status: Acute Assessment and Plan: possibly secondary to UTI/acute illness PT/OT when able (5) Hypertension: Code(s): I10 - Essential (primary) hypertension Status: Chronic Assessment and Plan: can fluctuate to extremes resume home medications follow trend of hemodynamcis. Discussed case with Michelle. Will continue to follow. Subjective Date/time seen: 01/27/23 12:35 Appears to be doing reasonably well; tolerated dialysis treatment yesterday without any issues or problems; no apparent events overnight or earlier this AM; feels reasonably well. Exam Narrative: General: elderly frail female in NAD Heart: normal S1 and S2; no rub Lungs: decreased at bases Abdomen: soft, nontender, nondistended, positive bowel sounds Extremities: no cyanosis or clubbing; no edema Skin: warm and intact Objective Data Vital Signs Vital Signs: Vital Signs Temp Pulse Resp BP Pulse Ox O2 Del Method 01/27/23 11:18 Room Air 01/27/23 08:50 80 97 Room Air 01/27/23 08:44 80 01/27/23 06:00 97.1 F L 82 18 192/82 H 94 01/26/23 22:00 97.2 F L 94 20 163/81 H 96 01/26/23 20:00 80 18 96 Room Air 01/26/23 22:09 80 Intake/Output Intake/Output: Intake & Output 01/24/23 01/25/23 01/26/23 01/27/23 23:59 23:59 23:59 23:59 Intake Total 50 1070 940 350 Output Total 2650 Balance 50 1070 -1710 350 Meds/Results Medications: Active Medications Generic Name Dose Route Start Last Admin Trade Name Freq PRN Reason Stop Dose Admin Alprazolam 0.25 mg 01/24/23 23:34 01/26/23 22:07 Alprazolam (*Crx) 0.25 Mg Tablet PO 0.25 mg TID PRN Administration Anxiety Amlodipine Besylate 5 mg 01/25/23 15:40 01/27/23 06:32 Amlodipine Besylate 5 Mg Tablet PO 5 mg QAM [facility] Administration Buspirone HCl 2.5 mg 01/25/23 09:00 01/27/23 08:44 Buspirone Hcl 2.5 Mg Tablet PO 2.5 mg Q12HR [facility] Administration Albumin Human 50 mls @ 999 mls/hr 01/25/23 23:59 Albutein IVPB 02/24/23 23:58 Q10M PRN HYPOTENSION Labetalol HCl 100 mg 01/24/23 23:41 01/27/23 08:44 Labetalol Hcl 100 Mg Tablet PO 100 mg Q12HR [facility] Administration Lisinopril 20 mg 01/24/23 23:41 01/27/23 06:34 Lisinopril 20 Mg Tablet PO 20 mg QAM [facility] Administration Miconazole Nitrate 1 applic 01/25/23 09:00 01/27/23 08:47 Miconazole 2% Antifungal Ointment 56 Gm TOPICAL 1 applic Q12HR [facility] Administration Trimethoprim/Sulfamethoxazole 1 tab 01/27/23 09:00 01/27/23 08:47 Sulfamethoxazole/Trimethoprim 400/80 Mg Tablet PO 01/28/23 23:59 1 tab Q12HR [facility] Administration Radiology Results: ITS Impressions Chest X-Ray 01/24/23 13:55 IMPRESSION: 1. Mild atelectasis in right lower lung zone and left mid and lower lung zones. Labs Labs: Laboratory Tests 01/26/23 06:10 01/27/23 09:30 Microbiology 01/24/23 16:10
[2023-01-27 14:00] VITALS: BP 140/68; PULSE 67; RESP 17; TEMP 36.2; O2SAT 95
--- NOTE | 2023-01-27 17:16 | PC.NURSE ---
Pt has been in bed for the majority of the day. Pt has been discharged back to [facility]. Pt's daughter will transport pt back to facility. Pt has been a&o to person. Pt dressed self in preparation for discharge. Will continue to monitor pt until discharge.
--- NOTE | 2023-01-28 09:03 | PM.DS ---
DS: Admitting Diagnosis Discharge Date 01/27/23 Admitting Diagnosis UTI, ESRD DS: Discharge Diagnosis Discharge Diagnosis (1) UTI (urinary tract infection): Qualifiers: Hematuria presence: with hematuria Urinary tract infection type: acute cystitis Qualified Code(s): N30.01 - Acute cystitis with hematuria Code(s): N39.0 - Urinary tract infection, site not specified Status: Acute (2) End stage renal disease: Code(s): N18.6 - End stage renal disease Status: Chronic (3) Generalized weakness: Code(s): R53.1 - Weakness Status: Acute (4) Hyponatremia: Code(s): E87.1 - Hypo-osmolality and hyponatremia Status: Acute DS: Summary Hospital Course Hospital Course: Assessment and Plan (1) UTI (urinary tract infection): ?Qualifiers: ?Hematuria presence:?with hematuria??Urinary tract infection type:?acute cystitis? Qualified Code(s):?N30.01 - Acute cystitis with hematuria ?Code(s): N39.0 - Urinary tract infection, site not specified ?Status:?Acute ?Assessment and Plan: Finished course of Rocephin Supportive care Continue to monitor (2) Generalized weakness: ?Code(s): R53.1 - Weakness ?Status:?Acute ?Assessment and Plan: Likely secondary to acute illness PT OT (3) Hyponatremia: ?Code(s): E87.1 - Hypo-osmolality and hyponatremia ?Status:?Acute ?Assessment and Plan: Improving Likely secondary to GI losses Has had significant diarrhea Received some normal saline Continue to monitor (4) End-stage renal disease on hemodialysis: ?Code(s): N18.6 - End stage renal disease; Z99.2 - Dependence on renal dialysis ?Status:?Acute ?Assessment and Plan: Continue hemodialysis Nephrology consult for inpatient hemodialysis (5) Hypertension: ?Code(s): I10 - Essential (primary) hypertension ?Status:?Chronic ?Assessment and Plan: Uncontrolled Restart home meds Continue to monitor patient clinically stable and is being discharged today Time Spent with Patient Time attestation: Total time spent providing and/or coordinating discharge services: Exam Narrative: General: elderly frail female in NAD Heart: normal S1 and S2; no rub Lungs: decreased at bases Abdomen: soft, nontender, nondistended, positive bowel sounds Extremities: no cyanosis or clubbing; no edema Skin: warm and intact DS: Data Data Completed and Pending Labs on day of discharge: Labs from last 24 hours 01/27/23 09:30 Sodium 130 L Potassium 3.5 Chloride 94 L Carbon Dioxide 28 Anion Gap 8 BUN 33 H D Creatinine 3.80 H Estim Creat Clear Calc 11 Estimated GFR 11 L Glucose 135 H Calcium 9.2 Discharge Plan Discharge Consulting providers: Leticia Reyes ; Shayy Stringer Discharging Clinician: Edouard Martinez Anticipated Discharge Date/Time: 01/27/23 15:22 Patient Disposition: NH Snf/Asst Living Activity: as tolerated Diet: renal Discharge Instructions: Completed antibiotic coarse for UTI. Follow up with PCP 1-2 weeks. Stand Alone Forms: General Discharge Information Discharge Medications: Continued labetalol 200 mg tablet 200 mg PO BID Qty: 60 6RF buspirone 5 mg tablet 5 mg PO TID lisinopril 20 mg tablet 20 mg PO DAILY alprazolam 0.25 mg tablet 0.25 mg PO PRN (Reason: Anxiety) Date of admission: 01/24/23 18:19 Primary Care Provider: PHYSICIAN NOT ON STAFF,NONSTAFF Admitting Provider: Lul Dumont Attending physician on admission: Edouard Martinez Condition: Stable
== END 2023-01-27 18:05 ==
LOC: ANHED 19:38 → ANH3MEDSUR 22:18
PROVIDERS: Internal Medicine; Internal Medicine Nephrology; Admitting Provider Internal Medicine; Emergency Provider Physician Assistant; Visit Provider Hospitalist
DX: N30.01 Acute cystitis with hematuria (principal); B96.1 Klebsiella pneumoniae [K. pneumoniae] as the cause of diseases classified elsewhere; I12.0 Hypertensive chronic kidney disease with stage 5 chronic kidney disease or end stage renal disease; N18.6 End stage renal disease; R53.1 Weakness; E87.1 Hypo-osmolality and hyponatremia; E87.8 Other disorders of electrolyte and fluid balance, not elsewhere classified; R91.8 Other nonspecific abnormal finding of lung field; R79.89 Other specified abnormal findings of blood chemistry; R94.31 Abnormal electrocardiogram [ECG] [EKG]; R41.9 Unspecified symptoms and signs involving cognitive functions and awareness; M10.9 Gout, unspecified; Z99.2 Dependence on renal dialysis; Z79.899 Other long term (current) drug therapy; Z82.49 Family history of ischemic heart disease and other diseases of the circulatory system
CPT/HCPCS: 36415; 71046; 80048; 80053; 81001; 83735; 85025; 86706; 87077; 87086; 87186; 87340; 87636; 93005; 96365; 96375; 97161; 97165; 99285; A9270; G0257; G0378; J0360; J0696; J1644; J7030

== ENCOUNTER 2023-07-27 07:40 | Emergency (ER) | payer MEDICARE, SELFPAY ==
[2023-07-27] VITALS (30 sets, daily range): BP systolic 149–207; BP diastolic 57–95; PULSE 55–66; RESP 14–25; TEMP 36.2; O2SAT 93–98
--- NOTE | ~2023-07-27 | XR_ITS ---
XR chest 2V 07/27/2023 08:30 Indication: Syncope. Dizziness. Procedure: AP and lateral views of the chest Comparison: Comparison to multiple prior studies sequentially, with oldest reviewed study dated 07/31. Findings: Heart size normal. Central venous catheter tip in the right atrium. Left basilar atelectasi s. No focal pneumonia, significant effusion, edema or pneumothorax. There is atherosclerosis and ecta wayne of the aorta. Impression: 1: Left basilar atelectasis. Reviewed, dictated and finalized at location B. Impression: 1: Left basilar atelectasis.
--- NOTE | ~2023-07-27 | CT_ITS ---
EXAMINATION: CT brain wo con DATE: 07/27/2023 08:20 INDICATION: Syncope. TECHNIQUE: Computed tomography (CT) of the head was performed without intravenous contrast. The mA wa s adjusted according to patient size. Iterative reconstruction technique was employed. The dose-lengt h product was 605.33 mGy-cm. COMPARISON: Head CT 12/10/2022 FINDINGS: There are scattered areas of low attenuation in the cerebral white matter. There is no intr acranial hemorrhage, acute infarction, or abnormal intracranial mass lesion. The ventricles are suleman l in size. There is a left posterior scalp hematoma. There is mild mucosal thickening in the ethmoid sinuses. There are likely changes of ocular lens replacement surgeries. The mastoid air cells are nor mal. IMPRESSION: 1. Stable extensive nonspecific cerebral white matter disease, which likely represents chronic small vessel ischemic disease. Reviewed, dictated and finalized at location E. IMPRESSION: 1. Stable extensive nonspecific cerebral white matter disease, which likely rep resents chronic small vessel ischemic disease.
--- NOTE | 2023-07-27 07:41 | ECG_ITS ---
Measurements Intervals [place] Rate: 56 P: 20 SC: 182 QRS: 8 QRSD: 94 T: 46 QT: 432 QTc: 420 Interpretive Statements SINUS BRADYCARDIA LEFT VENTRICULAR HYPERTROPHY WITH ST-T CHANGE CONSIDER INFERIOR INFARCT, AGE INDETERMINATE BORDERLINE T WAVE ABNORMALITY- ANTERIOR LEADS ABNORMAL ECG COMPARED TO ECG 01/24/2023 12:42:36 SINUS BRADYCARDIA NOW PRESENT T-WAVE ABNORMALITY NOW PRESENT Electronically Signed On 07-27-2023 7:57:15 CDT by Edward Castaneda D.O.
--- NOTE | 2023-07-27 07:58 | ED.SYNCOPE ---
HPI - Syncope General Chief Complaint: Syncope Stated Complaint: syncopal Time Seen by Provider: 07/27/23 07:42 History of Present Illness HPI narrative: Patient is an 82-year-old female who presents ER status post syncope. She reports that she was walking to the elevator and she lost consciousness. No prodrome of chest pain or dizziness or racing of the heart. Denies any fevers or chills or sweats. Patient was found unresponsive by staff. When EMS arrived she was drooling and confused but became more oriented on the ride to the ER. Upon arrival here patient had large volume stool in her diaper. Related Data Home Medications Medication Instructions Recorded Confirmed alprazolam 0.25 mg tablet 0.25 mg PO PRN Anxiety 01/24/23 buspirone 5 mg tablet 5 mg PO TID anxiety 01/24/23 01/24/23 lisinopril 20 mg tablet 20 mg PO DAILY 01/24/23 01/24/23 Allergies Allergy/AdvReac Type Severity Reaction Status Date / Time No Known Allergies Allergy Verified 01/24/23 13:07 [facility] Past Medical History Medical History End-stage renal disease on hemodialysis Gout Hypertension Surgical History Surgical History H/O cataract extraction H/O oophorectomy History of colonoscopy Hx of cholecystectomy Hx of parathyroidectomy Partial S/P appendectomy Family History Family History Father Family history of elevated blood lipids Hypertension Sibling Family history of elevated blood lipids Hypertension Cancer of jaw Mother Myocardial infarction Social History Social History Social History: She is and retired. She has a son johnnie and a daughter Agnes listed as her contacts. Is reported that she is a lifelong nonsmoker. Code status full code Smoking status: Former smoker Second hand tobacco smoke exposure: No Alcohol intake: never Substance use: never Lack of Transportation: No Lack of Food: Never True Current Housing: I Have Housing Concerned About Future Housing: No Difficulty Paying Gas/Electric Bills: No Difficulty Paying for Meds: No Currently Unemployed: No Education: Bachelor's Degree Difficulty w/ Childcare or Family Care: No Spiritual care concerns: No Exam Narrative: GENERAL: Chronically ill-appearing, well-nourished, and in no acute distress. HEAD: Normocephalic, cephalhematoma to posterior skull. EYES: PERRL and EOMI. ENT: Mucous membranes moist. CHEST: Clear to auscultation. No respiratory distress. Dialysis catheter right chest wall. HEART: Bradycardic and regular.. Normal peripheral pulses. ABDOMEN: Soft, nontender, nondistended. EXTREMITIES: Normal range of motion. No edema. SKIN: Warm, dry, no rash. NEURO: Alert and oriented x2. PSYCH: Normal mood and affect. Course Course Emergency Course: Patient with baseline dementia. Up and ambulatory without issue. Troponin negative x2. Creatinine at baseline. Patient felt appropriate for discharge back to facility. Facility has been contacted and will take patient back. Vital Signs Vital signs: Vital Signs Temperature 97.1 F L 07/27/23 07:38 Pulse Rate 58 L 07/27/23 07:38 Respiratory Rate 16 07/27/23 07:38 Blood Pressure 149/58 H 07/27/23 07:38 Pulse Oximetry 98 07/27/23 07:38 Oxygen Delivery Room Air 07/27/23 07:38 Temperature 97.1 F L 07/27/23 07:38 Pulse Rate 66 07/27/23 11:45 Respiratory Rate 17 07/27/23 11:45 Blood Pressure 200/65 H 07/27/23 11:16 Pulse Oximetry 97 07/27/23 11:45 Oxygen Delivery Room Air 07/27/23 07:38 MDM - Syncope Lab Data 07/27/23 08:05 07/27/23 08:05 Labs: Lab Results 07/27/23 07/27/23 Range/Units 08:05 11:29 WBC 5.5 (4.5-10.0) K/mm3 RBC 3.82
[2023-07-27 08:13] LABS: Basophils Percent Auto 0.7 % (0.2-1.2); Eosinophils Absolute Auto 0.1 K/mm3 (0-0.3); Eosinophils Percent Auto 1.8 % (0-4.4); Hematocrit 35.6 % (37.0-47.0); Hemoglobin 11.4 g/dL (12.0-15.0); Immature Granulocyte Absolute 0.03 K/mm3 (0.00-0.031); Immature Granulocyte Percent A 0.5 % (0-0.5); Lymphocytes Absolute Auto 1.11 K/mm3 (0.9-3.2); Lymphocytes Percent Auto 20.2 % (18.3-44.2); Mean Corpuscular Hemoglobin 29.8 pg (26-34); Mean Corpuscular Volume 93.2 fl (80-100); Mean Platelet Volume 9.5 fl (7.4-10.4); Monocytes Absolute Auto 0.7 K/mm3 (0.1-0.6); Monocytes Percent Auto 12.4 % (2.6-8.5); Neutrophils Absolute Auto 3.5 K/mm3 (1.3-6.7); Neutrophils Percent Auto 64.4 % (45.5-73.1); Platelet Count Result 149 k/mm3 (150-375); Red Blood Count 3.82 M/mm3 (4.2-5.4); Red Cell Distribution Width 14.7 % (11.5-14.5); White Blood Count 5.5 K/mm3 (4.5-10.0)
[2023-07-27 08:20] LABS: Alanine Aminotransferase 24 U/L (6-35); Albumin Level 3.9 g/dL (3.5-5.1); Alkaline Phosphatase 61 U/L (38-126); Anion Gap 9 mmol/L (8-16); Aspartate Amino Transferase 27 U/L (14-36); Bilirubin,Total 0.8 mg/dL (0.2-1.3); Blood Urea Nitrogen 32 mg/dL (7-17); Calcium 9.4 mg/dL (8.4-10.2); Carbon Dioxide 34 mmol/L (22-30); Chloride 88 mmol/L (98-107); Estimated CRCL calculation 10 ml/min; Estimated Glomerular Filt Rate 11; Glucose 165 mg/dL (65-110); Potassium 3.6 mmol/L (3.4-5.0); Sodium 131 mmol/L (137-145)
[2023-07-27 08:36] LABS: Troponin I 0.018 ng/mL (0.000-0.034)
[2023-07-27 11:57] LABS: Troponin I 0.016 ng/mL (0.000-0.034)
--- NOTE | 2023-07-27 12:17 | PC.NURSE ---
pt ambulated to nurses station with slow steady gait. edp notified.
== END 2023-07-27 14:45 | disposition home or self-care (01) ==
PROVIDERS: Emergency Provider Emergency Medicine
DX: R55 Syncope and collapse (principal); I12.0 Hypertensive chronic kidney disease with stage 5 chronic kidney disease or end stage renal disease; M10.9 Gout, unspecified; E89.2 Postprocedural hypoparathyroidism; Z98.49 Cataract extraction status, unspecified eye; Z90.49 Acquired absence of other specified parts of digestive tract; R90.82 White matter disease, unspecified; R00.1 Bradycardia, unspecified; I51.7 Cardiomegaly; R94.31 Abnormal electrocardiogram [ECG] [EKG]
CPT/HCPCS: 36415; 70450; 71046; 80053; 84484; 85025; 93005; 99284

== ENCOUNTER 2023-08-27 14:30 | Inpatient (IN) | payer MEDICARE, SELFPAY ==
--- NOTE | ~2023-08-27 | XR_ITS ---
EXAMINATION: XR barium swallow modified DATE: 08/31/2023 09:15 INDICATION: Dysphagia TECHNIQUE: Modified barium esophagram was performed by myself who administered fluoroscopy, in conju nction with speech pathologist who administered barium in varying consistencies as per speech patholo gist documentation. This was recorded on tape. A single fluoroscopic spot image was recorded. Fluoros copy exposure time was 1.7 minutes. The DAP for this procedure was 1.025 Gycm2. FINDINGS: Oral stage: Adequate function. Pharyngeal phase: Reduced laryngeal elevation, reduced laryngeal adduction, reduced tongue base retra ction. Laryngeal penetration: Present. Aspiration: Present. Laryngeal sensitivity: Present. IMPRESSION: Abnormal modified barium swallow. Please refer to speech pathologist findings and specifi c feeding recommendations. Reviewed, dictated and finalized at location A. IMPRESSION: Abnormal modified barium swallow. Please refer to speech pathologis t findings and specific feeding recommendations.
--- NOTE | ~2023-08-27 | CT_ITS ---
EXAMINATION: CT cervical spine wo con DATE: 08/27/2023 17:46 INDICATION: fall TECHNIQUE: Computed tomography (CT) of the cervical spine was performed without intravenous contrast. Automated exposure control and iterative reconstruction technique were employed. The dose-length pro duct was 169.58 mGy-cm. COMPARISON: 12/10/2022. FINDINGS: Vertebral Body Alignment: Intact. Stable trace grade 1 anterolistheses at multiple levels. Craniocervical and atlantoaxial alignment: Moderate degenerative change. Alignment intact. Osseous structures/fracture: No evidence of a lytic or blastic process in the visualized spine. No e vidence of acute fracture. Cervical soft tissues: The paraspinal soft tissues planes are maintained. Degenerative changes: Multilevel degenerative disc disease and facet arthropathy. Multilevel bilatera l severe neural foraminal narrowing. No severe central canal narrowing. IMPRESSION: No acute fracture or traumatic malalignment in the cervical spine. Reviewed, dictated and finalized at location K.
--- NOTE | ~2023-08-27 | XR_ITS ---
EXAM: XR hip LT min 2V DATE: 08/27/2023 15:04 HISTORY: GLF, shortened, rotated Lt hip/pain . COMPARISON: None available. FINDINGS: Normal mineralization. Transverse fracture of the left femoral neck, with 2.5 cm superior displacement, 1 cm overlap, and medial angulation. No lytic or blastic lesion. Joint spaces are maint ained. No erosion or periosteal change. Soft tissues within normal limits. IMPRESSION: Transverse displaced, overlapping, and angulated left femoral neck fracture. Reviewed, dictated and finalized at location K.
--- NOTE | ~2023-08-27 | CT_ITS ---
EXAMINATION: CT brain wo con DATE: 08/27/2023 17:45 INDICATION: fall . TECHNIQUE: Computed tomography (CT) of the head was performed without intravenous contrast. The mA wa s adjusted according to patient size. Iterative reconstruction technique was employed. The dose-lengt h product was 605.33 mGy-cm. COMPARISON: 07/27/2023. FINDINGS: No acute intracranial hemorrhage or extra-axial fluid collection. No hydrocephalus, mass, or herniation. No acute ischemic infarct. Unremarkable dural venous sinus attenuation. No acute osseous abnormality. The aerated spaces are clear. Moderate atrophy and chronic white matter change. Atherosclerotic intracranial calcification. Bilater al lens replacements. IMPRESSION: No acute intracranial process. Reviewed, dictated and finalized at location K.
--- NOTE | ~2023-08-27 | XR_ITS ---
EXAMINATION: XR hip LT min 2V DATE: 08/29/2023 12:01 INDICATION: Left hip fracture for bipolar hip hemiarthroplasty. TECHNIQUE: Anteroposterior and frog-leg lateral views of the left hip were obtained. COMPARISON: None. FINDINGS: The resection of the fractured left femoral head and neck and placement of a bipolar type left hip he miarthroplasty which appears well seated in near anatomic alignment. No other fracture identified. Sk in jocelyn lateral to the left hip with small amount of expected postoperative gas in the underlying soft tissues. IMPRESSION: 1. Bipolar type left hip hemiarthroplasty in near-anatomic alignment, negative for postoperative purp oses. Reviewed, dictated and finalized at location A. IMPRESSION: 1. Bipolar type left hip hemiarthroplasty in near-anatomic alignment, negative for postoperative purposes.
[2023-08-27 14:28] VITALS: BP 155/61; PULSE 62; RESP 18; TEMP 36.3; O2SAT 97
--- NOTE | 2023-08-27 15:17 | ED.FALL ---
HPI - Fall General Chief Complaint: Fall <Jenny Garcia PA-C - Last Filed: 08/27/23 18:23> Stated Complaint: GLF, L hip pain <Jenny Garcia PA-C - Last Filed: 08/27/23 18:23> History of Present Illness HPI Narrative: 82-year-old female with history of ESRD on hemodialysis reports for evaluation from [facility] via [facility] for evaluation of a ground-level fall. Patient was coming out of her dialysis treatment and tripped and fell getting up into the van, landing on her left hip. She denies hitting her head, no LOC. She denies neck pain, back pain, or other injuries acquired. She states I think I broke my hip . Denies history of hip fractures in the past. Patient is on a Tuesday, , Tuesday dialysis schedule with [facility]. Patient also found with a 2 cm laceration to the left thenar eminence. Upon questioning, patient states that occurred yesterday when she fell. She denies hitting her head again at that time or other injuries. <Jenny Garcia PA-C - Last Filed: 08/27/23 18:23> Related Data Home Medications: Home Medications Medication Instructions Recorded Confirmed alprazolam 0.25 mg tablet 0.25 mg PO PRN Anxiety 01/24/23 buspirone 5 mg tablet 5 mg PO TID anxiety 01/24/23 01/24/23 lisinopril 20 mg tablet 20 mg PO DAILY 01/24/23 01/24/23 <Jenny Garcia PA-C - Last Filed: 08/27/23 18:23> Allergies/Adverse Reactions: Allergies Allergy/AdvReac Type Severity Reaction Status Date / Time No Known Allergies Allergy Verified 08/27/23 15:25 <BRITTANY Rooney Last Filed: 08/27/23 18:23> Review of Systems Review of Systems: CONSTITUTIONAL: Denies fever, chills EYES: Denies visual changes, redness, or discharge. ENT: Denies rhinorrhea, congestion, sore throat, or otalgia. CARDIOVASCULAR: Denies chest pain, palpitations, or edema. RESPIRATORY: Denies cough or dyspnea. GASTROINTESTINAL: Denies abdominal pain, nausea, vomiting, or diarrhea. GENITOURINARY: Denies dysuria or hematuria. SKIN: Denies rash or itching. MUSCULOSKELETAL: See HPI NEUROLOGIC: Denies headache, numbness, dizziness, or weakness. PSYCHIATRIC: Denies anxiety or depression. <Jenny Garcia PA-C - Last Filed: 08/27/23 18:23> [facility] Past Medical History Medical History: Medical History End-stage renal disease on hemodialysis Gout Hypertension <Jenny Garcia PA-C - Last Filed: 08/27/23 18:23> Surgical History Surgical History: Surgical History H/O cataract extraction H/O oophorectomy History of colonoscopy Hx of cholecystectomy Hx of parathyroidectomy Partial S/P appendectomy <Jenny Garcia PA-C - Last Filed: 08/27/23 18:23> Family History Family History: Family History Father Family history of elevated blood lipids Hypertension Sibling Family history of elevated blood lipids Hypertension Cancer of jaw Mother Myocardial infarction <Jenny Garcia PA-C - Last Filed: 08/27/23 18:23> Social History Social History: Social History Social History: She is and retired. She has a son johnnie and a daughter Agnes listed as her contacts. Is reported that she is a lifelong nonsmoker. Code status full code Smoking status: Former smoker Second hand tobacco smoke exposure: No Alcohol intake: never Substance use: never Lack of Transportation: No Lack of Food: Never True Current Housing: I Have Housing Concerned About Future Housing: No Difficulty Paying Gas/Electric Bills: No Difficulty Paying for Meds: No Currently Unemployed: No Education: Bachelor's Degree Difficulty w/ Childcare or Family Care: No Spiritual care concerns: No <Jenny Garcia PA-C -
[2023-08-27] MEDS: MORPHINE SULFATE (*CRX) 2 MG/ML INJ 1 MG IV PUSH ×2 (15:25→16:16)
[2023-08-27 15:39] LABS: Basophils Percent Auto 0.5 % (0.2-1.2); Eosinophils Absolute Auto 0.1 K/mm3 (0-0.3); Hematocrit 32.8 % (37.0-47.0); Hemoglobin 10.5 g/dL (12.0-15.0); Immature Granulocyte Absolute 0.03 K/mm3 (0.00-0.031); Immature Granulocyte Percent A 0.5 % (0-0.5); Lymphocytes Absolute Auto 1.26 K/mm3 (0.9-3.2); Lymphocytes Percent Auto 21.2 % (18.3-44.2); Mean Corpuscular Hemoglobin 29.7 pg (26-34); Mean Corpuscular Volume 92.9 fl (80-100); Mean Platelet Volume 9.1 fl (7.4-10.4); Monocytes Absolute Auto 0.9 K/mm3 (0.1-0.6); Monocytes Percent Auto 14.3 % (2.6-8.5); Neutrophils Absolute Auto 3.7 K/mm3 (1.3-6.7); Neutrophils Percent Auto 61.5 % (45.5-73.1); Platelet Count Result 166 k/mm3 (150-375); Red Blood Count 3.53 M/mm3 (4.2-5.4); Red Cell Distribution Width 14.2 % (11.5-14.5); White Blood Count 5.9 K/mm3 (4.5-10.0)
[2023-08-27 15:53] LABS: Anion Gap 5 mmol/L (8-16); Blood Urea Nitrogen 29 mg/dL (7-17); Calcium 9.8 mg/dL (8.4-10.2); Carbon Dioxide 37 mmol/L (22-30); Chloride 89 mmol/L (98-107); Estimated CRCL calculation 15 ml/min; Estimated Glomerular Filt Rate 16; Glucose 114 mg/dL (65-110); Potassium 3.6 mmol/L (3.4-5.0); Sodium 131 mmol/L (137-145)
[2023-08-27 15:55] LABS: INR 0.8; Prothrombin Time 11.7 Seconds (11.1-14.7)
[2023-08-27 15:56] LABS: Partial Thromboplastin Time 33.9 SECONDS (22.3-36.8)
[2023-08-27 16:08] LABS: Appearance Urine Turbid (Clear); Bacteria Urine 4+ /hpf; Bilirubin Urine Negative (Negative); Blood Urine 2+ (Negative); Color Urine Yellow (Yellow); Glucose Urine UA Negative (Negative); Ketones Urine Negative (Negative); Leukocyte Esterase Ur 3+ LEU/UL (Negative); Need Manual Microscopic Reviewed; Nitrate Urine Negative (Negative); Protein Urine 3+ mg/dL (Negative); Squamous Epithelial Cell Urine None seen /hpf (Few); Urobilinogen Urine 0.2 mg/dL (<2.0); WBC Urine >100 /hpf; pH Urine 7.5 (5.0-9.0)
[2023-08-27 16:09] LABS: Add Urine Microscopic? YES
[2023-08-27 16:16] LABS: Phosphorus 3.3 mg/dL (2.5-4.5)
[2023-08-27 16:42] VITALS: BP 232/72; PULSE 75; RESP 18; O2SAT 96
--- NOTE | 2023-08-27 17:06 | ECG_ITS ---
Measurements Intervals [place] Rate: 85 P: 58 TX: 206 QRS: 28 QRSD: 91 T: 42 QT: 397 QTc: 474 Interpretive Statements SINUS RHYTHM POSSIBLE RIGHT ATRIAL ENLARGEMENT [0.25mV P WAVE] MINIMAL VOLTAGE CRITERIA FOR LVH, CONSIDER NORMAL VARIANT BORDERLINE ECG COMPARED TO ECG 07/27/2023 07:48:55 SINUS RHYTHM NOW PRESENT Electronically Signed On 08-28-2023 13:30:54 CDT by Jean Pierre Fowler M.D.
[2023-08-27 18:59] VITALS: BP 210/82; PULSE 92; RESP 21; O2SAT 100
[2023-08-27] MEDS: LABETALOL HCL INJ 100 MG/20 ML VIAL 10 MG IV PUSH (18:59)
[2023-08-27 19:44] VITALS: BP 186/90; PULSE 86; RESP 22; O2SAT 95
[2023-08-27 20:00] VITALS: PULSE 91
--- NOTE | 2023-08-27 21:22 | ADMGEN ---
This patient, Kirsty Rea, was admitted to Medical Room 348-01. Patient/family oriented to hospital policies and general routines including ID bracelet, bed and alarms, visiting hours, pain management, procedures, bathroom and other care routines, personal items, smoking policy, room service/diet, and visiting hours. Information on how to activate the Rapid Response Team has been discussed. Patient/Family are encouraged to report perceived risks to care and to ask questions if they do not understand what they are told or what they should do.
[2023-08-27 21:24] VITALS: BMI 19.4
[2023-08-27] MEDS: MORPHINE SULFATE (*CRX) 2 MG/ML INJ IV PUSH (21:31)
[2023-08-27 21:37] VITALS: BP 227/79; PULSE 93; RESP 22; TEMP 37.1; O2SAT 93
--- NOTE | 2023-08-27 22:24 | PM.IMHP ---
H&P: HPI History of Present Illness Date/Time: 08/27/23 21:30 Chief Complaint: Left hip pain after fall. Narrative: This is a pleasant 82-year-old female with end-stage renal disease on hemodialysis, hypertension, stroke, and memory loss who presented to the emergency department for evaluation of left hip pain after a fall. The patient provides the following history. She completed dialysis and when attempting to get in the van to return to her assisted living facility, she lost her balance and fell down onto her left hip. She had immediate pain and she was noted to have a shortened and externally rotated left leg on EMS arrival. Radiographs in the ED showed a transverse, overlapping, and angulated left femoral neck fracture. She is being admitted in this setting for pain control and orthopedic consult. She denies head trauma and loss of consciousness in the fall and reports that it was purely mechanical fall. On exam she was noted to have a small bruise on the mid forehead which she states was from a fall a couple of days ago. It is my understanding that she has a history of falls however she is not always forthcoming. In the ED she was given labetalol 10 mg IV x1 as her blood pressures have been persistently in the low 200 systolic. She was also given a dose of of IV morphine with improvement in her pain. At this time she is resting comfortably. She denies paresthesias, skin color, and temperature changes distal to the fracture site. Review of Systems Review of Systems: Twelve systems were reviewed. No syncope or near syncope. She denies recent cold and flu symptoms. No chest pain, pleuritic pain, or shortness of breath. She denies nausea, vomiting, and diarrhea. She still urinates and denies dysuria. Except as documented, all other systems were reviewed and are negative. [facility] Past Medical History Medical History (Updated 08/27/23 @ 23:08 by Ayaka Kramer PA-C) Anemia of chronic disease Cerebrovascular accident End-stage renal disease on hemodialysis Gout Hypertension Memory loss Surgical History Surgical History (Updated 08/27/23 @ 23:03 by Ayaka Kramer PA-C) History of appendectomy History of cataract extraction History of cholecystectomy History of colonoscopy History of oophorectomy History of parathyroidectomy Family History Family History Father Family history of elevated blood lipids Hypertension Sibling Family history of elevated blood lipids Hypertension Cancer of jaw Mother Myocardial infarction Social History Social History (Updated 08/27/23 @ 23:05 by Ayaka Kramer PA-C) Social History: Surrogate medical decision maker: Agnes Monroy and Stacy Sheppard, daughters. Code status: Full code. Smoking status: Former smoker Second hand tobacco smoke exposure: No Alcohol intake: current Substance use: never Lack of Transportation: No Lack of Food: Never True Current Housing: I Do Not Have Housing Concerned About Future Housing: No Difficulty Paying Gas/Electric Bills: No Difficulty Paying for Meds: No Currently Unemployed: No Education: Associate Degree Difficulty w/ Childcare or Family Care: No Additional living arrangements comments: . Has 2 children. Lives in assisted living at [facility]. Additional occupation/education comments: Retired. Spiritual care concerns: No Meds Home Medications and Allergies Home Medications Medication Instructions Recorded Confirmed Type alprazolam 0.25 mg tablet 0.25 mg PO HS PRN Anxiety 01/24/23 08/27/23 History buspirone 5 mg tablet 5 mg PO TID anxiety 01/24/23 08/27/23 History lisinopril 20 mg tablet 20 mg PO DAILY 01/24/23 08/27/23 History escitalopram oxalate 5 mg tablet 5 mg PO DAILY 08/27/23 08/27/23 History hydrochlorothiazide 12.5 mg capsule 12.5 mg PO DAILY 08/27/23 08/27/23 History labetalol 200 mg tablet 300 mg PO BID
[2023-08-28] VITALS (14 sets, daily range): BP systolic 92–202; BP diastolic 41–70; PULSE 72–101; RESP 12–20; TEMP 36.7–37; O2SAT 92–95
[2023-08-28] MEDS: LABETALOL HCL 100 MG TABLET 300 MG PO ×3 (00:37→20:49)
[2023-08-28] MEDS: MORPHINE SULFATE (*CRX) 2 MG/ML INJ IV PUSH (04:28)
[2023-08-28] MEDS: METOPROLOL TARTRATE INJ 5 MG/5 ML VIAL 10 MG IV PUSH (05:44)
[2023-08-28 06:13] LABS: Hematocrit 31.6 % (37.0-47.0); Hemoglobin 10.1 g/dL (12.0-15.0); Mean Corpuscular Hemoglobin 29.3 pg (26-34); Mean Corpuscular Volume 91.6 fl (80-100); Mean Platelet Volume 9.3 fl (7.4-10.4); Platelet Count Result 177 k/mm3 (150-375); Red Blood Count 3.45 M/mm3 (4.2-5.4); Red Cell Distribution Width 13.9 % (11.5-14.5); White Blood Count 9.5 K/mm3 (4.5-10.0)
[2023-08-28 07:28] LABS: Anion Gap 8 mmol/L (8-16); Blood Urea Nitrogen 39 mg/dL (7-17); Carbon Dioxide 30 mmol/L (22-30); Chloride 92 mmol/L (98-107); Estimated CRCL calculation 10 ml/min; Estimated Glomerular Filt Rate 12; Glucose 117 mg/dL (65-110); Magnesium 2.1 mg/dL (1.6-2.3); Phosphorus 4.8 mg/dL (2.5-4.5); Potassium 3.8 mmol/L (3.4-5.0); Sodium 130 mmol/L (137-145)
[2023-08-28] MEDS: hydroCHLOROthiazide 12.5 MG CAPSULE PO (08:50)
[2023-08-28] MEDS: busPIRone HCL 5 MG TABLET PO ×3 (08:50→17:30)
[2023-08-28] MEDS: MEMANTINE 5 MG TABLET PO ×2 (08:50→20:50)
[2023-08-28] MEDS: ESCITALOPRAM OXALATE 5 MG TABLET PO (08:50)
[2023-08-28] MEDS: lisinopriL 20 MG TABLET PO (08:51)
--- NOTE | 2023-08-28 09:23 | PM.CNOR ---
Assessment and Plan Assessment and plan (1) Closed displaced fracture of left femoral neck: Code(s): S72.002A - Fracture of unspecified part of neck of left femur, initial encounter for closed fracture Status: Acute Assessment and Plan: New patient evaluation for chief complaint History, physical exam and radiographs reviewed with the patient. Discussed the condition, nature, etiology and course of natural history with the patient. Treatment options including surgical and nonoperative treatment were reviewed. Risks and benefits of each as well as alternatives reviewed. The patient's questions were answered. Conservative treatment ice, pain control, mechanical DVT prophylaxis. patient desires operative treatment. To proceed when medically stable and cleared. (2) Urinary tract infection: Qualifiers: Urinary tract infection type: site unspecified Hematuria presence: without hematuria Qualified Code(s): N39.0 - Urinary tract infection, site not specified Code(s): N39.0 - Urinary tract infection, site not specified Status: Acute Assessment and Plan: antibiotic regimen Plan Discussed nonoperative and operative treatment options with the patient. Risks and benefits of each as well as alternatives were reviewed. All of the patient's questions were answered. The risks of surgery reviewed including but not limited to: Neurovascular damage, wound complication, infection, blood clot, pulmonary embolus, stroke, myocardial infarction, and anesthetic risks up to and including . Continued pain and possible dysfunction were explained. Specific risks of the procedure including later recurrence of deformity. No guarantees were offered. If hardware used, discussed risk of failure/ breakage and possible need for removal. If complications occur, the patient understands the need for further treatment, possible further surgery. Patient verbalizes understanding and wishes to proceed. PLAN: Left hip bipolar History of Present Illness HPI Consult date: 08/28/23 Requesting physician: Jenny Garcia PA-C Chief complaint: CLOSED LEFT HIP FRACTURE,UTI,HYPERTENSION Narrative: 82-year-old woman with renal disease on dialysis. Fell coming out of dialysis yesterday. Found to have left hip fracture. Admitted for further care. Complains of left hip pain. Previously ambulatory with walker. Denies numbness or tingling. Denies loss of consciousness. Denies neck or back pain. Review of Systems Constitutional: Constitutional: Denies fever(s) Eyes: Eyes: Denies blurry vision ENT: Reports Normal hearing present Cardiovascular: Cardiovascular: Denies chest pain and Denies dyspnea Respiratory: Respiratory: Denies dyspnea and Denies wheezing Gastrointestinal: Gastrointestinal: Denies abdominal pain Genitourinary: Genitourinary: Denies urinary urgency Musculoskeletal: Musculoskeletal: Reports as per HPI and Denies numbness Integumentary/Breasts: Skin/Breast: Denies changing lesions and Denies sores Neurologic: Reports Normal hearing present, Denies behavioral changes, Denies confusion, Denies numbness and Denies convulsions Psychiatric: Psychiatric: Denies behavioral changes, Denies confusion and Denies hallucinations Endocrine: Endocrine: Denies heat intolerance Hematologic/Lymphatic: Hematologic/Lymphatic: Denies easy bleeding Allergic/Immunologic: Allergic/Immunologic: Denies wheezing [facility] Past Medical History Medical History (Updated 08/28/23 @ 09:26 by Mannie Virk MD) Anemia of chronic disease Cerebrovascular accident Closed displaced fracture of left femoral neck End-stage renal disease on hemodialysis Gout Hypertension Memory loss Surgical History Surgical History History of appendectomy History of cataract extraction History of cholecystectomy History of colonoscopy History of oophorectomy History
--- NOTE | 2023-08-28 12:45 | PM.CNNEP ---
Assessment and Plan Assessment and plan (1) End stage renal disease: Code(s): N18.6 - End stage renal disease Status: Chronic Assessment and Plan: HD on Tuesday and continue T/T/S schedule follow electrolytes, volume status, and clearance (2) Closed displaced fracture of left femoral neck: Code(s): S72.002A - Fracture of unspecified part of neck of left femur, initial encounter for closed fracture Status: Acute Assessment and Plan: as noted by admission imaging Orthopedic Surgery recommendations noted plan operative intervention tomorrow (3) UTI (urinary tract infection): Qualifiers: Hematuria presence: with hematuria Urinary tract infection type: acute cystitis Qualified Code(s): N30.01 - Acute cystitis with hematuria Code(s): N39.0 - Urinary tract infection, site not specified Status: Acute Assessment and Plan: suggestive by admission UA on antibiotics follow culture data supportive therapy (4) Hyponatremia: Code(s): E87.1 - Hypo-osmolality and hyponatremia Status: Acute Assessment and Plan: related free water intake and ESRD dialysis will help correct/stabilize follow trend of sodium (5) Hypertension: Code(s): I10 - Essential (primary) hypertension Status: Chronic Assessment and Plan: can fluctuate to extremes pain may be a contributing component as well resume home medications follow trend of hemodynamcis. (6) Anemia: Code(s): D64.9 - Anemia, unspecified Status: Chronic Assessment and Plan: related to ESRD Epogen with HD follow trend of H/H From a renal perspective, the patient is medically cleared to proceed with left hip surgery?with the understanding that patients with chronic kidney disease/end stage renal disease have mildly higher rates of complications for the procedure such as hemodynamic and infectious issues but she is at baseline risk. I will continue to follow the patient with you while she remains hospitalized make further recommendations as needed. Thank you for allowing me to participate in the care of this patient. History of Present Illness Reason for Consult Consult date: 08/28/23 Reason for consult: end stage renal disease Chief Complaint Chief complaint: CLOSED LEFT HIP FRACTURE,UTI,HYPERTENSION History of Present Illness Narrative: Most of the information I obtained is from review of the electronic medical record, discussion with the ER provider in the emergency room yesterdayfternoon, as well as her outpatient dialysis center as it is difficult to get a full and complete history from the patient due to her baseline confusion. The patient is an 82-year-old female with a past medical history as outlined below who presented to [facility] Emergency room from her dialysis center yesterday after she sustained a fall in the parking lot. The patient completed her dialysis treatment yesterday and while going to the parking lot to get loaded on the vein and to take her back to her assisted living facility, she apparently lost her balance and fell to the ground on her left side. She had immediate pain in her left hip area. EMS was called and apparently she was noted have a shortened and externally rotated left leg on their arrival. She was subsequently transferred to [facility] Emergency room for further assessment Workup and evaluation emergency room demonstrated the patient be a bit hypertensive but this was thought to be secondary to pain. Routine blood test demonstrated labs consistent with her known history of end-stage renal disease and subsequent x-rays demonstrated a transverse overlapping and angulated left femoral neck fracture. she reported no loss of consciousness both prior to or after the fall although she was noted to have a small bruise on her mid forehead that she relates was due to a fall at her assisted li
--- NOTE | 2023-08-28 14:10 | PM.IMPN ---
Progress Note: A&P Assessment and Plan (1) Closed left hip fracture: Qualifiers: Encounter type: initial encounter Qualified Code(s): S72.002A - Fracture of unspecified part of neck of left femur, initial encounter for closed fracture Code(s): S72.002A - Fracture of unspecified part of neck of left femur, initial encounter for closed fracture Status: Acute Assessment and Plan: She has a transverse, displaced, overlapping and angulated left femoral neck fracture. Analgesics are available as needed. Dr. Virk has been consulted and his input is appreciated. Surgery scheduled for tomorrow. DVT prophylaxis, PT and OT per orthopedic surgery (2) Urinary tract infection: Qualifiers: Urinary tract infection type: site unspecified Hematuria presence: without hematuria Qualified Code(s): N39.0 - Urinary tract infection, site not specified Code(s): N39.0 - Urinary tract infection, site not specified Status: Acute Assessment and Plan: UA suspicious for UTI. Empiric antibiotic therapy with Rocephin. Urine culture pending. Adjust antibiotic therapy to culture results (3) End-stage renal disease on hemodialysis: Code(s): N18.6 - End stage renal disease; Z99.2 - Dependence on renal dialysis Status: Acute Assessment and Plan: nephrology consulted. (4) Uncontrolled hypertension: Code(s): I10 - Essential (primary) hypertension Status: Chronic Assessment and Plan: Continue home medications Hydralazine p.r.n. for systolic BP greater than 180 (5) Anemia of chronic disease: Code(s): D63.8 - Anemia in other chronic diseases classified elsewhere Status: Chronic Subjective Date/time seen: 08/28/23 14:10 Interval history: Patient states that she is managing her pain well. She denies any symptoms of dysuria, frequency or urgency. She has Quijano catheter placed due to hip surgery scheduled for tomorrow. While I was in the room talking her she did develop acute nausea but never vomited. She was started on anti emetics. Exam Narrative: GENERAL: Comfortable, no acute distress HENMT: moist mucous membranes EYES: EOM intact b/l NECK: no lymphadenopathy RESPIRATORY: clear to auscultation CARDIO: RRR : Urinary catheter in place and patent GI: soft, nontender, bowel sounds present SKIN: no rashes EXTREMITIES: no edema, redness or tenderness Objective Data Vital Signs Vital Signs: Vital Signs - 24 hr 08/27/23 14:28 08/27/23 16:42 08/27/23 18:59 Temperature 97.4 F L Pulse Rate 62 75 92 Respiratory Rate 18 18 21 H Blood Pressure 155/61 H 232/72 H 210/82 H Pulse Oximetry 97 96 100 Oxygen Delivery Room Air 08/27/23 19:44 08/27/23 21:37 08/28/23 00:37 Temperature 98.8 F Pulse Rate 86 93 100 Respiratory Rate 22 H 22 H Blood Pressure 186/90 H 227/79 H Pulse Oximetry 95 93 Oxygen Delivery 08/27/23 20:00 08/28/23 00:00 08/28/23 04:26 Temperature 98.4 F Pulse Rate 91 101 H 92 Respiratory Rate 20 Blood Pressure 202/70 H Pulse Oximetry 95 Oxygen Delivery 08/28/23 05:44 08/28/23 04:00 08/28/23 08:53 Temperature Pulse Rate 82 89 83 Respiratory Rate Blood Pressure Pulse Oximetry Oxygen Delivery 08/28/23 08:00 Temperature Pulse Rate 83 Respiratory Rate 20 Blood Pressure Pulse Oximetry 95 Oxygen Delivery Room Air Intake/Output Intake/Output: Intake & Output 08/25/23 08/26/23 08/27/23 08/28/23 23:59 23:59 23:59 23:59 Intake Total 50 730 Output Total 350 Balance 50 380 Meds/Results Medications: Active Medications Generic Name Dose Route Start Last Admin Trade Name Freq PRN Reason Stop Dose Admin Acetaminophen 650 mg 08/27/23 23:11 Acetaminophen 325 Mg Tablet PO Q6H PRN Mild Pain (1-3) or Fever Alprazolam 0.25 mg 08/27/23 23:11 Alprazolam (*Crx) 0.25 Mg Tablet PO HS P
[2023-08-28] MEDS: BUMETANIDE 1 MG TABLET 2 MG PO (20:49)
[2023-08-29] VITALS (21 sets, daily range): BP systolic 132–205; BP diastolic 50–96; PULSE 67–82; RESP 12–18; TEMP 36.1–37.3; O2SAT 90–100
[2023-08-29 06:03] LABS: Hematocrit 30.1 % (37.0-47.0); Hemoglobin 9.6 g/dL (12.0-15.0); Mean Corpuscular HGB Conc 31.9 g/dl (32-36); Mean Corpuscular Hemoglobin 29.5 pg (26-34); Mean Corpuscular Volume 92.6 fl (80-100); Mean Platelet Volume 9.2 fl (7.4-10.4); Platelet Count Result 165 k/mm3 (150-375); Red Blood Count 3.25 M/mm3 (4.2-5.4); Red Cell Distribution Width 13.8 % (11.5-14.5); White Blood Count 8.4 K/mm3 (4.5-10.0)
[2023-08-29 06:26] LABS: Alanine Aminotransferase 29 U/L (6-35); Albumin Level 3.7 g/dL (3.5-5.1); Alkaline Phosphatase 93 U/L (38-126); Anion Gap 10 mmol/L (8-16); Aspartate Amino Transferase 28 U/L (14-36); Bilirubin,Total 0.7 mg/dL (0.2-1.3); Blood Urea Nitrogen 57 mg/dL (7-17); Calcium 9.5 mg/dL (8.4-10.2); Carbon Dioxide 28 mmol/L (22-30); Chloride 91 mmol/L (98-107); Estimated CRCL calculation 7 ml/min; Estimated Glomerular Filt Rate 8; Glucose 102 mg/dL (65-110); Potassium 3.8 mmol/L (3.4-5.0); Sodium 129 mmol/L (137-145)
[2023-08-29 06:51] LABS: Hepatitis B Surface Antigen Negative (Negative)
[2023-08-29 07:09] LABS: Hepatitis B Surface Antibody > 1000.00 s/c
--- NOTE | 2023-08-29 07:13 | WPDHPUPDATE1 ---
History and Physical Update Update Date/Time: 08/29/23 07:13 History and Physical has been reviewed, including an updated exam of the patient. There are NO changes in the patient's condition. Risks, benefits, and alternatives have been discussed and questions answered. Patient agrees to proceed with procedure.
[2023-08-29 08:11] LABS: Hepatitis B Surface Anti Res Positive
--- NOTE | 2023-08-29 08:24 | PC.NURSE ---
Patient off of unit to surgery
[2023-08-29] MEDS: ACETAMINOPHEN 500 MG TABLET 1000 MG PO (08:38)
[2023-08-29] MEDS: TRANEXAMIC ACID 1,000MG/ISO100 1,000 MG/100 ML BAG 200 MG IVPB (08:41)
[2023-08-29] MEDS: ONDANSETRON INJ 4 MG/2 ML VIAL IV PUSH ×2 (09:04→14:29)
--- NOTE | 2023-08-29 09:18 | WPDANESEPPF ---
Anes - Initial Pre Proc Eval Procedure: Operation Date: 08/29/23 09:30 Proposed Procedures p Left Bipolar - Mannie Virk MD Date/Time: 08/29/23 09:18 Surgeon: Amira Hopkins MD Pre Op Diagnosis: CLOSED LEFT HIP FRACTURE,UTI,HYPERTENSION Patient Data Age: 82 Gender: F Height: 1.73 m Weight: 56.8 kg Last Vital Signs Temp 37.3 C 08/29/23 08:48 Pulse 81 08/29/23 08:48 Resp 16 08/29/23 08:48 BP 188/65 H 08/29/23 08:48 Pulse Ox 94 08/29/23 08:48 O2 Del Method Room Air 08/29/23 08:48 Allergies Allergy/AdvReac Type Severity Reaction Status Date / Time No Known Allergies Allergy Verified 08/27/23 15:25 Home Medications Medication Instructions Recorded Confirmed Type alprazolam 0.25 mg tablet 0.25 mg PO HS PRN Anxiety 01/24/23 08/27/23 History buspirone 5 mg tablet 5 mg PO TID anxiety 01/24/23 08/27/23 History lisinopril 20 mg tablet 20 mg PO DAILY 01/24/23 08/27/23 History escitalopram oxalate 5 mg tablet 5 mg PO DAILY 08/27/23 08/27/23 History hydrochlorothiazide 12.5 mg capsule 12.5 mg PO DAILY 08/27/23 08/27/23 History labetalol 200 mg tablet 300 mg PO BID 08/27/23 08/27/23 History memantine 5 mg tablet 5 mg PO BID 08/27/23 08/27/23 History sucroferric oxyhydroxide 500 mg 500 mg PO TID 08/27/23 08/27/23 History chewable tablet (Velphoro) Laboratory Tests 08/29/23 05:41 WBC 8.4 K/mm3 (4.5-10.0) RBC 3.25 L M/mm3 (4.2-5.4) Hgb 9.6 L g/dL (12.0-15.0) Hct 30.1 L % (37.0-47.0) MCV 92.6 fl (80-100) MCH 29.5 pg (26-34) MCHC 31.9 L g/dl (32-36) RDW 13.8 % (11.5-14.5) Plt Count 165 k/mm3 (150-375) MPV 9.2 fl (7.4-10.4) Sodium 129 L mmol/L (137-145) Potassium 3.8 mmol/L (3.4-5.0) Chloride 91 L mmol/L (98-107) Carbon Dioxide 28 mmol/L (22-30) Anion Gap 10 mmol/L (8-16) BUN 57 H D mg/dL (7-17) Creatinine 5.30 H mg/dL (0.7-1.0) Estim Creat Clear Calc 7 ml/min Estimated GFR 8 L (59 - ) Glucose 102 mg/dL (65-110) Calcium 9.5 mg/dL (8.4-10.2) Total Bilirubin 0.7 mg/dL (0.2-1.3) AST 28 U/L (14-36) ALT 29 U/L (6-35) Alkaline Phosphatase 93 U/L (38-126) Total Protein 6.0 L g/dL (6.3-8.2) Albumin 3.7 g/dL (3.5-5.1) Hep Bs Antigen Negative (Negative) Hep Bs Antibody Positive Patient hx anesthesia problems: none Family hx anesthesia problems: none Results Review: All pre-operative results and documents have been reviewed as part of the pre-operative evaluation. [facility] Past Medical History Medical History Anemia of chronic disease Cerebrovascular accident Closed displaced fracture of left femoral neck End-stage renal disease on hemodialysis Gout Hypertension Memory loss Surgical History Surgical History History of appendectomy History of cataract extraction History of cholecystectomy History of colonoscopy History of oophorectomy History of parathyroidectomy Family History Family History Father Family history of elevated blood lipids Hypertension Sibling Family history of elevated blood lipids Hypertension Cancer of jaw Mother Myocardial infarction Social History Social History Social History: Surrogate medical decision maker: Agnes Monroy and Stacy Sheppard, daughters. Code status: Full code. Smoking status: Former smoker Second hand tobacco smoke exposure: No Alcohol intake: current Substance use: never Lack of Transportation: No Lack of Food: Never True Current Housing: I Do Not Have Housing Concerned About Future Housing: No Difficulty Paying Gas/Electric Bills: No Difficulty Paying for Meds: No Currently Unemployed:
--- NOTE | 2023-08-29 09:35 | W.PM.PROC2 ---
Procedure Note - Detailed Date of Procedure 08/29/23 Pre-op Diagnosis CLOSED LEFT HIP FRACTURE,UTI,HYPERTENSION Post-op Diagnosis Same Procedure Performed Left hip bipolar Surgeon Mannie Virk MD [facility] 1st imaging assistant Anesthesia General Indications 82yo woman with dementia, fell and sustained left hip fx. Patient and medical P.O.A. wishes to proceed with surgery. Description of Procedure After informed consent was given, the operative extremity was marked in the preoperative holding area. The patient received intravenous antibiotics. Patient was brought to the operating room where they underwent a general anesthetic. Positioned in the lateral decubitus position nonop side down and the operative hip up. The left hip was then prepped and draped in the usual sterile surgical fashion using ChloraPrep skin solution. Time-out performed confirming the patient, side of the surgery, and the plan. A longitudinal incision was then made over the lateral side of the hip with the 10-blade knife. Hemostasis was controlled with electrocautery. Dissection was carried down through the fascia, which was incised in line with the skin incision. Subfascial retractor was placed. The abductor musculature was then elevated off the lateral side of the femur leaving a cuff of tissue for repair. The short abductor musculature was then elevated off the capsule and retention sutures were placed at the corner. The capsule was then incised in line with the femoral neck and T'd at the base. This allowed exposure of the fracture. The fracture hematoma was evacuated. Proximal femoral cutting guide was used to make a femoral neck cut at 2 cm above the lesser trochanter. This bone was removed with a rongeur. We then removed the head with a corkscrew. This was measured on the back table. Trialing of the acetabulum was done and a size 46 mm had excellent fit. The acetabulum was thoroughly irrigated and suctioned. Part of the fovea was removed with cautery. The rest of the acetabulum was inspected and noted to be with minimal degenerative changes. The proximal femur was then prepared. A posterior femoral retractor elevator was placed and a box cutting chisel was used to enter the femoral canal. We then used the canal finder. Broaching was then performed sequentially in 1 mm increments from a size 4 up to a size 14. This was noted to have excellent fit. We then trialed the hip. Excellent fit, stability with external and internal rotation at full extension and flexion of his hip and leg shuck were noted. The trial components were then removed. There was thorough irrigation with antibiotic solution of the proximal femur, acetabulum, and the wound. The femoral stem was then impacted into place. Good fit was noted. Trialing was once again performed and a - stem with a mm acetabular cup had excellent stability and range of motion. The trial components were removed and the 28 mm head, -6mm neck, 46mm acetabular cup were then impacted onto the femoral stem. The hip was then reduced once again, taken through full range of motion and noted to be stable with the leg extended in full external and internal rotation with the hip flexed to 90 degrees with internal and external rotation. There was equal leg length noted. Wound was thoroughly irrigated with antibiotic solution. The capsule was repaired with #1 Vicryl interrupted suture. The abductors were repaired back with #1 Vicryl interrupted suture. The fascia was repaired with 0 Vicryl running suture. Subcutaneous tissue was repaired in layers with 2-0 Vicryl interrupted suture. Skin repaired with jocelyn. A sterile dressing was placed. A hip abduction stave T pillow was applied. The patient was then returned supine, extubated after awakening from anesthesia, and taken to the recovery room in stable condition. All sponge and instrument counts were correct at the end of the case. Implants [employer] press fit stem size 14, 46m
[2023-08-29] MEDS: ceFAZolin 2 GM/D5W 50 ML 2 GM/50 ML BAG IVPB (09:42)
--- NOTE | 2023-08-29 11:00 | SUR.OPER ---
esquivel emptied 11:01 70ml of yellow urine. EBL 200ml.
[2023-08-29] MEDS: LACTATED RINGERS 1,000 ML 30 ML IV CONT (11:25)
[2023-08-29] MEDS: LABETALOL HCL INJ 100 MG/20 ML VIAL IV PUSH (12:45)
--- NOTE | 2023-08-29 12:55 | PM.PNNEP ---
Progress Note: A&P Assessment and Plan (1) End stage renal disease: Code(s): N18.6 - End stage renal disease Status: Chronic Assessment and Plan: HD tomorrow continue T/T/S schedule while hospitalized follow electrolytes, volume status, and clearance (2) Closed displaced fracture of left femoral neck: Code(s): S72.002A - Fracture of unspecified part of neck of left femur, initial encounter for closed fracture Status: Acute Assessment and Plan: as noted by admission imaging Orthopedic Surgery recommendations noted s/p operative intervention today (3) UTI (urinary tract infection): Qualifiers: Hematuria presence: with hematuria Urinary tract infection type: acute cystitis Qualified Code(s): N30.01 - Acute cystitis with hematuria Code(s): N39.0 - Urinary tract infection, site not specified Status: Acute Assessment and Plan: suggestive by admission UA on antibiotics culture with E.coli supportive therapy (4) Hyponatremia: Code(s): E87.1 - Hypo-osmolality and hyponatremia Status: Acute Assessment and Plan: related free water intake and ESRD dialysis will help correct/stabilize follow trend of sodium (5) Hypertension: Code(s): I10 - Essential (primary) hypertension Status: Chronic Assessment and Plan: can fluctuate to extremes pain may be a contributing component as well resume home medications follow trend of hemodynamcis. (6) Anemia: Code(s): D64.9 - Anemia, unspecified Status: Chronic Assessment and Plan: related to ESRD Epogen with HD follow trend of H/H Will continue to follow. Subjective Date/time seen: 08/29/23 12:55 Interval history: Follow-up for end stage renal disease on hemodialysis. S/P operative intervention for hip fracture earlier this morning -- tolerated the procedure reasonably well; sleep/drowsy at the time of my visit; no other issues/events overnight or earlier this morning; no apparent distress noted currently. Exam Narrative: General: elderly frail female in NAD Heart: normal S1 and S2; no rub Lungs: decreased at bases Abdomen: soft, nontender, nondistended, positive bowel sounds Extremities: no cyanosis or clubbing; no edema Skin: warm and dry Objective Data Vital Signs Vital Signs: Vital Signs Temp Pulse Resp BP Pulse Ox O2 Del Method O2 Flow Rate 08/29/23 12:53 68 16 189/71 H 94 Nasal Cannula 2 08/29/23 12:40 71 16 194/81 H 90 Nasal Cannula 2 08/29/23 12:45 73 08/29/23 12:25 76 16 193/82 H 90 Room Air 08/29/23 12:10 76 16 199/96 H 94 Room Air 08/29/23 11:55 75 14 173/88 H 100 Simple Face Mask 8 08/29/23 11:40 73 16 153/64 H 96 Room Air 08/29/23 11:25 97.0 F L 67 16 132/50 L 98 Simple Face Mask 8 08/29/23 08:48 99.2 F 81 16 188/65 H 94 Room Air 08/29/23 06:00 97.3 F L 82 18 205/75 H 94 08/28/23 22:23 95 Room Air 08/29/23 04:00 76 08/29/23 00:00 76 08/28/23 20:00 Room Air 08/28/23 20:00 83 08/28/23 21:25 98.6 F 79 18 92/41 L 95 08/28/23 20:49 85 Intake/Output Intake/Output: Intake & Output 08/26/23 08/27/23 08/28/23 08/29/23 23:59 23:59 23:59 23:59 Intake Total 50 1030 300 Output Total 400 920 Balance 50 630 -620 Meds/Results Medications: Active Medications Generic Name Dose Route Start Last Admin Trade Name Freq PRN Reason Stop Dose Admin Acetaminophen 650 mg 08/27/23 23:11 Acetaminophen 325 Mg Tablet PO Q6H PRN Mild Pain (1-3) or Fever Alprazolam 0.25 mg 08/27/23 23:11 Alprazolam (*Crx) 0.25 Mg Tablet PO HS PRN Anxiety Amlodipine Besylate 5 mg 08/29/23 09:00 08/29/23 08:22 Amlodipine Besylate 5 Mg Tablet PO Not Given QAM REANE Bumetanide 2 mg 08/28/23 20:05 08/29/23 08:22 Bumetanid
--- NOTE | 2023-08-29 13:20 | PC.NURSE ---
Patient returned to unit from surgery
--- NOTE | 2023-08-29 14:58 | PM.IMPN ---
Progress Note: A&P Assessment and Plan (1) Closed left hip fracture: Qualifiers: Encounter type: initial encounter Qualified Code(s): S72.002A - Fracture of unspecified part of neck of left femur, initial encounter for closed fracture Code(s): S72.002A - Fracture of unspecified part of neck of left femur, initial encounter for closed fracture Status: Acute Assessment and Plan: She has a transverse, displaced, overlapping and angulated left femoral neck fracture. Analgesics are available as needed. Dr. Virk has been consulted and his input is appreciated. Surgery on 08/29/23 DVT prophylaxis, PT and OT per orthopedic surgery (2) Urinary tract infection: Qualifiers: Urinary tract infection type: site unspecified Hematuria presence: without hematuria Qualified Code(s): N39.0 - Urinary tract infection, site not specified Code(s): N39.0 - Urinary tract infection, site not specified Status: Acute Assessment and Plan: UA suspicious for UTI. Empiric antibiotic therapy with Rocephin. Urine culture positive for E. coli sensitivities pending. Adjust antibiotic therapy to culture results (3) End-stage renal disease on hemodialysis: Code(s): N18.6 - End stage renal disease; Z99.2 - Dependence on renal dialysis Status: Acute Assessment and Plan: nephrology consulted. (4) Uncontrolled hypertension: Code(s): I10 - Essential (primary) hypertension Status: Chronic Assessment and Plan: Continue home medications Hydralazine p.r.n. for systolic BP greater than 180 (5) Anemia of chronic disease: Code(s): D63.8 - Anemia in other chronic diseases classified elsewhere Status: Chronic Assessment and Plan: stable. Subjective Date/time seen: 08/29/23 14:58 Interval history: Daughter at bedside. Patient seen post operatively. She is comfortable and denies pain at this time. She did have some nausea but was given Zofran and it did help. PT and OT are working with her and she will likely need rehab at discharge. Exam Narrative: GENERAL: Comfortable, no acute distress HENMT: moist mucous membranes EYES: EOM intact b/l NECK: no lymphadenopathy RESPIRATORY: clear to auscultation CARDIO: RRR : Urinary catheter in place and patent GI: soft, nontender, bowel sounds present SKIN: no rashes EXTREMITIES: no edema, redness or tenderness Objective Data Vital Signs Vital Signs: Vital Signs - 24 hr 08/28/23 16:00 08/28/23 20:49 08/28/23 21:25 Temperature 98.6 F Pulse Rate 73 85 79 Respiratory Rate 18 Blood Pressure 92/41 L Pulse Oximetry 95 Oxygen Delivery Oxygen Flow Rate 08/28/23 20:00 08/28/23 20:00 08/29/23 00:00 Temperature Pulse Rate 83 76 Respiratory Rate Blood Pressure Pulse Oximetry Oxygen Delivery Room Air Oxygen Flow Rate 08/29/23 04:00 08/28/23 22:23 08/29/23 06:00 Temperature 97.3 F L Pulse Rate 76 82 Respiratory Rate 18 Blood Pressure 205/75 H Pulse Oximetry 95 94 Oxygen Delivery Room Air Oxygen Flow Rate 08/29/23 08:48 08/29/23 11:25 08/29/23 11:40 Temperature 99.2 F 97.0 F L Pulse Rate 81 67 73 Respiratory Rate 16 16 16 Blood Pressure 188/65 H 132/50 L 153/64 H Pulse Oximetry 94 98 96 Oxygen Delivery Room Air Simple Face Mask Room Air Oxygen Flow Rate 8 08/29/23 11:55 08/29/23 12:10 08/29/23 12:25 Temperature Pulse Rate 75 76 76 Respiratory Rate 14 16 16 Blood Pressure 173/88 H 199/96 H 193/82 H Pulse Oximetry 100 94 90 Oxygen Delivery Simple Face Mask Room Air Room Air Oxygen Flow Rate 8 08/29/23 12:45 08/29/23 12:40 08/29/23 12:53 Temperature Pulse Rate 73 71 68 Respiratory Rate 16 16 Blood Pressure 194/81 H 189/71 H Pulse Oximetry 90 94 Oxygen Delivery Nasal Cannula Nasal Cannula Oxygen Flow Rate 2 2 08/29/23 13:10 08/29/23 07:50 08/29/23
[2023-08-29] MEDS: busPIRone HCL 5 MG TABLET PO (17:52)
[2023-08-29] MEDS: LABETALOL HCL 100 MG TABLET 300 MG PO (20:52)
[2023-08-29] MEDS: MEMANTINE 5 MG TABLET PO (20:53)
[2023-08-29] MEDS: ceFAZolin 1 GM/NS 50 ML 1 GM/50 ML BAG IVPB (20:53)
[2023-08-30] VITALS (25 sets, daily range): BP systolic 110–196; BP diastolic 50–76; PULSE 53–90; RESP 16–18; TEMP 36.3–37.4; O2SAT 92–95
[2023-08-30 07:51] LABS: Basophils Percent Auto 0.2 % (0.2-1.2); Eosinophils Percent Auto 0.3 % (0-4.4); Hematocrit 27.7 % (37.0-47.0); Immature Granulocyte Absolute 0.04 K/mm3 (0.00-0.031); Immature Granulocyte Percent A 0.4 % (0-0.5); Lymphocytes Absolute Auto 0.99 K/mm3 (0.9-3.2); Lymphocytes Percent Auto 10.9 % (18.3-44.2); Mean Corpuscular HGB Conc 32.5 g/dl (32-36); Mean Corpuscular Hemoglobin 29.5 pg (26-34); Mean Corpuscular Volume 90.8 fl (80-100); Mean Platelet Volume 9.2 fl (7.4-10.4); Monocytes Absolute Auto 1.4 K/mm3 (0.1-0.6); Monocytes Percent Auto 14.9 % (2.6-8.5); Neutrophils Absolute Auto 6.7 K/mm3 (1.3-6.7); Neutrophils Percent Auto 73.3 % (45.5-73.1); Platelet Count Result 193 k/mm3 (150-375); Red Blood Count 3.05 M/mm3 (4.2-5.4); Red Cell Distribution Width 13.7 % (11.5-14.5); White Blood Count 9.1 K/mm3 (4.5-10.0)
[2023-08-30 07:59] LABS: Alanine Aminotransferase 23 U/L (6-35); Albumin Level 3.5 g/dL (3.5-5.1); Alkaline Phosphatase 92 U/L (38-126); Anion Gap 13 mmol/L (8-16); Aspartate Amino Transferase 41 U/L (14-36); Bilirubin,Total 0.5 mg/dL (0.2-1.3); Blood Urea Nitrogen 80 mg/dL (7-17); Calcium 9.2 mg/dL (8.4-10.2); Carbon Dioxide 24 mmol/L (22-30); Chloride 91 mmol/L (98-107); Estimated CRCL calculation 6 ml/min; Estimated Glomerular Filt Rate 6; Glucose 131 mg/dL (65-110); Potassium 4.2 mmol/L (3.4-5.0); Sodium 128 mmol/L (137-145)
--- NOTE | 2023-08-30 08:24 | PCPTNOTE ---
Attempted to see patient for PT, however was starting treatment session with patient when RN reported patient is having to go to dialysis.
--- NOTE | 2023-08-30 08:37 | PC.NURSE ---
Patient off of unit to dialysis
--- NOTE | 2023-08-30 08:45 | PCOTNOTE ---
Patient out of the room at this time. Patient is dialysis, per RN, will be back in the afternoon.
--- NOTE | 2023-08-30 09:37 | P.PNNP_ITS ---
Progress Note: A&P Assessment and Plan (1) End stage renal disease: Code(s): N18.6 - End stage renal disease Status: Chronic Assessment and Plan: * HD today * continue T/T/S schedule while hospitalized * follow electrolytes, volume status, and clearance (2) Closed displaced fracture of left femoral neck: Code(s): S72.002A - Fracture of unspecified part of neck of left femur, initial encounter for closed fracture Status: Acute Assessment and Plan: * as noted by admission imaging * Orthopedic Surgery recommendations noted * s/p left hip hemiarthroplasty (on 08/29/23) * pain control * PT/OT as tolerated (3) UTI (urinary tract infection): Qualifiers: Hematuria presence: with hematuria Urinary tract infection type: acute cystitis Qualified Code(s): N30.01 - Acute cystitis with hematuria Code(s): N39.0 - Urinary tract infection, site not specified Status: Acute Assessment and Plan: * suggestive by admission UA * on antibiotics * culture with E.coli * supportive therapy (4) Hyponatremia: Code(s): E87.1 - Hypo-osmolality and hyponatremia Status: Acute Assessment and Plan: * related free water intake and ESRD * dialysis will help correct/stabilize * follow trend of sodium (5) Hypertension: Code(s): I10 - Essential (primary) hypertension Status: Chronic Assessment and Plan: * can fluctuate to extremes * pain may be a contributing component as well * resume home medications * follow trend of hemodynamcis. (6) Anemia: Code(s): D64.9 - Anemia, unspecified Status: Chronic Assessment and Plan: * related to ESRD * Epogen with HD * follow trend of H/H Will continue to follow. Subjective Date/time seen: 08/30/23 09:37 Interval history: Follow-up for end stage renal disease on hemodialysis. Tolerating hemodialysis treatment at the time of my visit (seen on HD at 9:28AM); tolerated left hip hemiarthroplasty yesterday without any issue or problems; pain control seems adequate; no apparent distress voiced. Exam Narrative: General: elderly frail female in NAD Heart: normal S1 and S2; no rub Lungs: decreased at bases Abdomen: soft, nontender, nondistended, positive bowel sounds Extremities: no cyanosis or clubbing; no edema Skin: warm and intact Objective Data Vital Signs Vital Signs: Vital Signs Temp Pulse Resp BP Pulse Ox O2 Del Method O2 Flow Rate 08/30/23 08:43 70 169/71 H 08/30/23 08:32 97.7 F 72 18 182/74 H 08/30/23 08:37 Room Air 08/30/23 06:00 97.4 F L 69 18 156/55 H 95 08/29/23 20:00 94 Room Air 08/30/23 04:00 69 08/30/23 00:00 72 08/29/23 20:00 77 08/29/23 22:00 98.0 F 79 16 162/81 H 94 08/29/23 20:52 76 08/29/23 18:57 97.4 F L 75 16 203/72 H 95 08/29/23 16:00 71 08/29/23 14:55 68 16 168/60 H 91 08/29/23 13:48 Room Air 08/29/23 13:25 72 14 185/76 H 94 08/29/23 13:10 68 12 184/80 H 93 08/29/23 12:53 68 16 189/71 H 94 Nasal Cannula 2 08/29/23 12:40 71 16 194/81 H 90 Nasal Cannula 2 08/29/23 12:45 73 08/29/23 12:
--- NOTE | 2023-08-30 09:37 | PM.PNNEP ---
Progress Note: A&P Assessment and Plan (1) End stage renal disease: Code(s): N18.6 - End stage renal disease Status: Chronic Assessment and Plan: HD today continue T/T/S schedule while hospitalized follow electrolytes, volume status, and clearance (2) Closed displaced fracture of left femoral neck: Code(s): S72.002A - Fracture of unspecified part of neck of left femur, initial encounter for closed fracture Status: Acute Assessment and Plan: as noted by admission imaging Orthopedic Surgery recommendations noted s/p left hip hemiarthroplasty (on 08/29/23) pain control PT/OT as tolerated (3) UTI (urinary tract infection): Qualifiers: Hematuria presence: with hematuria Urinary tract infection type: acute cystitis Qualified Code(s): N30.01 - Acute cystitis with hematuria Code(s): N39.0 - Urinary tract infection, site not specified Status: Acute Assessment and Plan: suggestive by admission UA on antibiotics culture with E.coli supportive therapy (4) Hyponatremia: Code(s): E87.1 - Hypo-osmolality and hyponatremia Status: Acute Assessment and Plan: related free water intake and ESRD dialysis will help correct/stabilize follow trend of sodium (5) Hypertension: Code(s): I10 - Essential (primary) hypertension Status: Chronic Assessment and Plan: can fluctuate to extremes pain may be a contributing component as well resume home medications follow trend of hemodynamcis. (6) Anemia: Code(s): D64.9 - Anemia, unspecified Status: Chronic Assessment and Plan: related to ESRD Epogen with HD follow trend of H/H Will continue to follow. Subjective Date/time seen: 08/30/23 09:37 Interval history: Follow-up for end stage renal disease on hemodialysis. Tolerating hemodialysis treatment at the time of my visit (seen on HD at 9:28AM); tolerated left hip hemiarthroplasty yesterday without any issue or problems; pain control seems adequate; no apparent distress voiced. Exam Narrative: General: elderly frail female in NAD Heart: normal S1 and S2; no rub Lungs: decreased at bases Abdomen: soft, nontender, nondistended, positive bowel sounds Extremities: no cyanosis or clubbing; no edema Skin: warm and intact Objective Data Vital Signs Vital Signs: Vital Signs Temp Pulse Resp BP Pulse Ox O2 Del Method O2 Flow Rate 08/30/23 08:43 70 169/71 H 08/30/23 08:32 97.7 F 72 18 182/74 H 08/30/23 08:37 Room Air 08/30/23 06:00 97.4 F L 69 18 156/55 H 95 08/29/23 20:00 94 Room Air 08/30/23 04:00 69 08/30/23 00:00 72 08/29/23 20:00 77 08/29/23 22:00 98.0 F 79 16 162/81 H 94 08/29/23 20:52 76 08/29/23 18:57 97.4 F L 75 16 203/72 H 95 08/29/23 16:00 71 08/29/23 14:55 68 16 168/60 H 91 08/29/23 13:48 Room Air 08/29/23 13:25 72 14 185/76 H 94 08/29/23 13:10 68 12 184/80 H 93 08/29/23 12:53 68 16 189/71 H 94 Nasal Cannula 2 08/29/23 12:40 71 16 194/81 H 90 Nasal Cannula 2 08/29/23 12:45 73 08/29/23 12:25 76 16 193/82 H 90 Room Air 08/29/23 12:10 76 16 199/96 H 94 Room Air 08/29/23 11:55 75 14 173/88 H 100 Simple Face Mask 8 08/29/23 11:40 73 16 153/64 H 96 Room Air 08/29/23 11:25 97.0 F L 67 16 132/50 L 98 Simple Face Mask 8 Intake/Output Intake/Output: Intake & Output 08/27/23 08/28/23 08/29/23 08/30/23 23:59 23:59 23:59 23:59 Intake Total 50 1030 350 400 Output Total 400 920 Balance 50 630 -570 400 Meds/Results Medications: Active Medications Generic Name Dose Route Start Last Admin Trade Name Freq PRN Reason Stop Dose Admin Acetaminophen 650 mg 08/27/23 23:11 Acetaminophen 325 Mg Tablet PO Q6H PRN Mild Pain (1-3) or Fever
[2023-08-30] MEDS: SODIUM CHLORIDE 0.9% IV 1,000 ML 999 ML IV CONT (10:36)
[2023-08-30] MEDS: EPOETIN ALFA-EPBX 10,000 UNITS/ML VIAL 10000 UNITS IV PUSH (10:36)
--- NOTE | 2023-08-30 12:54 | PC.NURSE ---
[employer] gave update to Stacy via telephone on patient's status
--- NOTE | 2023-08-30 13:39 | PM.IMPN ---
Progress Note: A&P Assessment and Plan (1) Closed left hip fracture: Qualifiers: Encounter type: initial encounter Qualified Code(s): S72.002A - Fracture of unspecified part of neck of left femur, initial encounter for closed fracture Code(s): S72.002A - Fracture of unspecified part of neck of left femur, initial encounter for closed fracture Status: Acute Assessment and Plan: She has a transverse, displaced, overlapping and angulated left femoral neck fracture. Analgesics are available as needed. Dr. Virk has been consulted and his input is appreciated. Surgery on 08/29/23 DVT prophylaxis, PT and OT per orthopedic surgery (2) Urinary tract infection: Qualifiers: Urinary tract infection type: site unspecified Hematuria presence: without hematuria Qualified Code(s): N39.0 - Urinary tract infection, site not specified Code(s): N39.0 - Urinary tract infection, site not specified Status: Acute Assessment and Plan: UA suspicious for UTI. Antibiotics decelerated to p.o. cefdinir renally dosed. Urine culture positive for E. coli Adjust antibiotic therapy to culture results (3) End-stage renal disease on hemodialysis: Code(s): N18.6 - End stage renal disease; Z99.2 - Dependence on renal dialysis Status: Acute Assessment and Plan: nephrology consulted. (4) Uncontrolled hypertension: Code(s): I10 - Essential (primary) hypertension Status: Chronic Assessment and Plan: Continue home medications Hydralazine p.r.n. for systolic BP greater than 180 (5) Anemia of chronic disease: Code(s): D63.8 - Anemia in other chronic diseases classified elsewhere Status: Chronic Assessment and Plan: stable. Subjective Date/time seen: 08/30/23 13:39 Interval history: Pt doing well post operatively. She will need SNF at discharge. patient's pain is well managed. Transition her to p.o. antibiotics for UTI. E coli is pansensitive and she was transitioned to cefdinir that was renally dosed. According to RN in dialysis room patient was having difficulty with liquids and having coughing fits. Ordered speech evaluation for this. Exam Narrative: GENERAL: Comfortable, no acute distress HENMT: moist mucous membranes EYES: EOM intact b/l NECK: no lymphadenopathy RESPIRATORY: clear to auscultation CARDIO: RRR : Urinary catheter in place and patent GI: soft, nontender, bowel sounds present SKIN: no rashes EXTREMITIES: no edema, redness or tenderness Objective Data Vital Signs Vital Signs: Vital Signs - 24 hr 08/29/23 13:48 08/29/23 14:55 08/29/23 16:00 Temperature Pulse Rate 68 71 Respiratory Rate 16 Blood Pressure 168/60 H Pulse Oximetry 91 Oxygen Delivery Room Air 08/29/23 18:57 08/29/23 20:52 08/29/23 22:00 Temperature 97.4 F L 98.0 F Pulse Rate 75 76 79 Respiratory Rate 16 16 Blood Pressure 203/72 H 162/81 H Pulse Oximetry 95 94 Oxygen Delivery 08/29/23 20:00 08/30/23 00:00 08/30/23 04:00 Temperature Pulse Rate 77 72 69 Respiratory Rate Blood Pressure Pulse Oximetry Oxygen Delivery 08/29/23 20:00 08/30/23 06:00 08/30/23 08:37 Temperature 97.4 F L Pulse Rate 69 Respiratory Rate 18 Blood Pressure 156/55 H Pulse Oximetry 94 95 Oxygen Delivery Room Air Room Air 08/30/23 08:32 08/30/23 08:43 08/30/23 08:45 Temperature 97.7 F Pulse Rate 72 70 73 Respiratory Rate 18 Blood Pressure 182/74 H 169/71 H 164/72 H Pulse Oximetry Oxygen Delivery 08/30/23 08:00 08/30/23 09:00 08/30/23 09:15 Temperature Pulse Rate 71 76 75 Respiratory Rate Blood Pressure 138/62 130/58 L Pulse Oximetry Oxygen Delivery 08/30/23 11:45 08/30/23 09:30 08/30/23 09:45 Temperature Pulse Rate 75 83 74 Respiratory Rate Blood Pressure 139/59 L 110/71 111/57 L Pulse Oximetry Oxygen [employer]
--- NOTE | 2023-08-30 16:06 | PCSTNOTE ---
Please refer to the Bedside Swallow Evaluation in the EMR. Please note, silent aspiration cannot be ruled out at bedside.
[2023-08-30] MEDS: busPIRone HCL 5 MG TABLET PO (17:47)
[2023-08-30] MEDS: ceFAZolin 1 GM/NS 50 ML 1 GM/50 ML BAG IVPB (20:10)
[2023-08-30] MEDS: LABETALOL HCL 100 MG TABLET 300 MG PO (20:10)
[2023-08-30] MEDS: MEMANTINE 5 MG TABLET PO (20:11)
[2023-08-30] MEDS: CEFDINIR 300 MG CAPSULE PO (20:11)
[2023-08-31] VITALS (7 sets, daily range): BP systolic 174–221; BP diastolic 59–74; PULSE 77–98; RESP 16–18; TEMP 36.5–37; O2SAT 94–96
[2023-08-31 06:03] LABS: Basophils Absolute Auto 0.1 K/mm3 (0.0-0.1); Basophils Percent Auto 0.6 % (0.2-1.2); Eosinophils Absolute Auto 0.1 K/mm3 (0-0.3); Eosinophils Percent Auto 0.8 % (0-4.4); Hematocrit 27.7 % (37.0-47.0); Hemoglobin 8.9 g/dL (12.0-15.0); Immature Granulocyte Absolute 0.14 K/mm3 (0.00-0.031); Immature Granulocyte Percent A 1.3 % (0-0.5); Lymphocytes Percent Auto 12.3 % (18.3-44.2); Mean Corpuscular HGB Conc 32.1 g/dl (32-36); Mean Corpuscular Hemoglobin 29.4 pg (26-34); Mean Corpuscular Volume 91.4 fl (80-100); Monocytes Absolute Auto 1.6 K/mm3 (0.1-0.6); Monocytes Percent Auto 14.8 % (2.6-8.5); Neutrophils Absolute Auto 7.5 K/mm3 (1.3-6.7); Neutrophils Percent Auto 70.2 % (45.5-73.1); Platelet Count Result 188 k/mm3 (150-375); Red Blood Count 3.03 M/mm3 (4.2-5.4); Red Cell Distribution Width 13.8 % (11.5-14.5); White Blood Count 10.6 K/mm3 (4.5-10.0)
[2023-08-31 06:20] LABS: Alanine Aminotransferase 11 U/L (6-35); Albumin Level 3.5 g/dL (3.5-5.1); Alkaline Phosphatase 101 U/L (38-126); Anion Gap 8 mmol/L (8-16); Aspartate Amino Transferase 44 U/L (14-36); Bilirubin,Total 0.6 mg/dL (0.2-1.3); Blood Urea Nitrogen 43 mg/dL (7-17); Calcium 9.5 mg/dL (8.4-10.2); Carbon Dioxide 30 mmol/L (22-30); Chloride 95 mmol/L (98-107); Estimated CRCL calculation 10 ml/min; Estimated Glomerular Filt Rate 12; Glucose 115 mg/dL (65-110); Potassium 3.5 mmol/L (3.4-5.0); Sodium 133 mmol/L (137-145)
[2023-08-31] MEDS: hydrALAZINE HCL 20 MG/ML VIAL 10 MG IV PUSH (06:41)
--- NOTE | 2023-08-31 08:31 | PCPTNOTE ---
Attempted to see patient for PT, however patient was having to leave room for testing at this time.
--- NOTE | 2023-08-31 08:40 | PCOTNOTE ---
Patient out of the room at this time. Patient went down for a MBS test.
--- NOTE | 2023-08-31 09:27 | PCSTNOTE ---
Please refer to the Bedside Swallow Evaluation in the EMR. Please note, silent aspiration cannot be ruled out at bedside.
--- NOTE | 2023-08-31 09:30 | P.PNIM_ITS ---
Progress Note: A&P Assessment and Plan (1) Closed left hip fracture: Qualifiers: Encounter type: initial encounter Qualified Code(s): S72.002A - Fracture of unspecified part of neck of left femur, initial encounter for closed fracture Code(s): S72.002A - Fracture of unspecified part of neck of left femur, initial encounter for closed fracture Status: Acute Assessment and Plan: 08/30/23: (copied from chart) * She has a transverse, displaced, overlapping and angulated left femoral neck fracture. * Analgesics are available as needed. * Dr. Virk has been consulted and his input is appreciated. * Surgery on 08/29/23 * DVT prophylaxis, PT and OT per orthopedic surgery 08/31/23: * she is postop day 2 from a left total hip replacement * orthopedics following * continue pain control * continue DVT prophylaxis * continue PT and OT * case management looking at placement to SNF * barium swallow today showed moderate to severe penetration, patient put on thick liquids with her meals (2) Urinary tract infection: Qualifiers: Hematuria presence: without hematuria Urinary tract infection type: site unspecified Qualified Code(s): N39.0 - Urinary tract infection, site not specified Code(s): N39.0 - Urinary tract infection, site not specified Status: Acute Assessment and Plan: 08/30/23: (copied from chart) * UA suspicious for UTI. * Antibiotics decelerated to p.o. cefdinir renally dosed. * Urine culture positive for E. coli * Adjust antibiotic therapy to culture results 08/31/23: * continue cefdinir * urine culture positive for E coli * no change to current treatment plan (3) End-stage renal disease on hemodialysis: Code(s): N18.6 - End stage renal disease; Z99.2 - Dependence on renal dialysis Status: Acute Assessment and Plan: 08/30/23: (copied from chart) * nephrology consulted. 08/31/23: * BUN 43, creatinine 3.7, estimated creatinine clearance 10, EGFR 12 * patient on dialysis, left forearm AV graft with positive bruit/thrill * nephrology following (4) Uncontrolled hypertension: Code(s): I10 - Essential (primary) hypertension Status: Chronic Assessment and Plan: 08/30/23:(copied from chart) * Continue home medications * Hydralazine p.r.n. for systolic BP greater than 180 08/31/23: * blood pressure range 174/72-221/74 * no change to current treatment plan (5) Anemia of chronic disease: Code(s): D63.8 - Anemia in other chronic diseases classified elsewhere Status: Chronic Assessment and Plan: 08/30/23: (copied from chart) * stable. 08/31/23: * hemoglobin 8.9, hematocrit 27.7 * continue to trend labs Time Spent With Patient Time with patient: Greater than 35 minutes Subjective Date/time seen: 08/31/23 09:30 Interval history: Interval history: This is an 82 year old female who presented to the hospital with left hip pain after a fall on 08/27/2023. Workup in the hospital included a hip x-ray which shown a transverse displaced overlapping and angulated femoral neck fracture, head CT which was negative, C-spine CT which was negative for any fracture or traumatic malalignment. Orthopedics was consulted and patient went to OR on 08/29/23 for Left total hip replacement. UA showing E coli and currently on Cefdinir. 08/30/23: (copied from chart) Pt doing well post operatively. She will need SNF at discharge. patient's pain is well managed.
--- NOTE | 2023-08-31 09:30 | PM.IMPN ---
Progress Note: A&P Assessment and Plan (1) Closed left hip fracture: Qualifiers: Encounter type: initial encounter Qualified Code(s): S72.002A - Fracture of unspecified part of neck of left femur, initial encounter for closed fracture Code(s): S72.002A - Fracture of unspecified part of neck of left femur, initial encounter for closed fracture Status: Acute Assessment and Plan: 08/30/23: (copied from chart) She has a transverse, displaced, overlapping and angulated left femoral neck fracture. Analgesics are available as needed. Dr. Virk has been consulted and his input is appreciated. Surgery on 08/29/23 DVT prophylaxis, PT and OT per orthopedic surgery 08/31/23: she is postop day 2 from a left total hip replacement orthopedics following continue pain control continue DVT prophylaxis continue PT and OT case management looking at placement to SNF barium swallow today showed moderate to severe penetration, patient put on thick liquids with her meals (2) Urinary tract infection: Qualifiers: Hematuria presence: without hematuria Urinary tract infection type: site unspecified Qualified Code(s): N39.0 - Urinary tract infection, site not specified Code(s): N39.0 - Urinary tract infection, site not specified Status: Acute Assessment and Plan: 08/30/23: (copied from chart) UA suspicious for UTI. Antibiotics decelerated to p.o. cefdinir renally dosed. Urine culture positive for E. coli Adjust antibiotic therapy to culture results 08/31/23: continue cefdinir urine culture positive for E coli no change to current treatment plan (3) End-stage renal disease on hemodialysis: Code(s): N18.6 - End stage renal disease; Z99.2 - Dependence on renal dialysis Status: Acute Assessment and Plan: 08/30/23: (copied from chart) nephrology consulted. 08/31/23: BUN 43, creatinine 3.7, estimated creatinine clearance 10, EGFR 12 patient on dialysis, left forearm AV graft with positive bruit/thrill nephrology following (4) Uncontrolled hypertension: Code(s): I10 - Essential (primary) hypertension Status: Chronic Assessment and Plan: 08/30/23:(copied from chart) Continue home medications Hydralazine p.r.n. for systolic BP greater than 180 08/31/23: blood pressure range 174/72-221/74 no change to current treatment plan (5) Anemia of chronic disease: Code(s): D63.8 - Anemia in other chronic diseases classified elsewhere Status: Chronic Assessment and Plan: 08/30/23: (copied from chart) stable. 08/31/23: hemoglobin 8.9, hematocrit 27.7 continue to trend labs Time Spent With Patient Time with patient: Greater than 35 minutes Subjective Date/time seen: 08/31/23 09:30 Interval history: Interval history: This is an 82 year old female who presented to the hospital with left hip pain after a fall on 08/27/2023. Workup in the hospital included a hip x-ray which shown a transverse displaced overlapping and angulated femoral neck fracture, head CT which was negative, C-spine CT which was negative for any fracture or traumatic malalignment. Orthopedics was consulted and patient went to OR on 08/29/23 for Left total hip replacement. UA showing E coli and currently on Cefdinir. 08/30/23: (copied from chart) Pt doing well post operatively. She will need SNF at discharge. patient's pain is well managed. Transition her to p.o. antibiotics for UTI. E coli is pansensitive and she was transitioned to cefdinir that was renally dosed. According to RN in dialysis room patient was having difficulty with liquids and having coughing fits. Ordered speech evaluation for this. 08/31/23: On examination today patient is alert x3, she denies any pain, vital signs are stable, she remains afebrile, and she is currently on room air. She denies any new complaints today. Labs t
--- NOTE | 2023-08-31 09:46 | PC.NURSE ---
Spoke with Cyndie from speech therapy. MBS study did not go well. Cyndie is going to contact hospitalist Eboni about MBS study and what do to with patient's diet going forward. Waiting to give medications until diet orders are clear.
[2023-08-31] MEDS: busPIRone HCL 5 MG TABLET PO ×2 (13:21→18:03)
--- NOTE | 2023-08-31 14:14 | PM.PNNEP ---
Progress Note: A&P Assessment and Plan (1) End stage renal disease: Code(s): N18.6 - End stage renal disease Status: Chronic Assessment and Plan: HD tomorrow continue T/T/S schedule while hospitalized follow electrolytes, volume status, and clearance (2) Closed displaced fracture of left femoral neck: Code(s): S72.002A - Fracture of unspecified part of neck of left femur, initial encounter for closed fracture Status: Acute Assessment and Plan: as noted by admission imaging Orthopedic Surgery recommendations noted s/p left hip hemiarthroplasty (on 08/29/23) pain control PT/OT as tolerated (3) UTI (urinary tract infection): Qualifiers: Hematuria presence: with hematuria Urinary tract infection type: acute cystitis Qualified Code(s): N30.01 - Acute cystitis with hematuria Code(s): N39.0 - Urinary tract infection, site not specified Status: Acute Assessment and Plan: suggestive by admission UA on antibiotics culture with E.coli supportive therapy (4) Hyponatremia: Code(s): E87.1 - Hypo-osmolality and hyponatremia Status: Acute Assessment and Plan: related free water intake and ESRD dialysis will help correct/stabilize follow trend of sodium (5) Hypertension: Code(s): I10 - Essential (primary) hypertension Status: Chronic Assessment and Plan: can fluctuate to extremes resume home medications follow trend of hemodynamics (6) Anemia: Code(s): D64.9 - Anemia, unspecified Status: Chronic Assessment and Plan: related to ESRD Epogen with HD follow trend of H/H Will continue to follow. Subjective Date/time seen: 08/31/23 14:14 Interval history: Follow-up for end stage renal disease on hemodialysis. Tolerated dialysis treatment yesterday without any issues or problems; pain control appears satisfactory; no apparent distress voiced; no issues/events overnight or earlier this morning; BP has been running on the high side (due to being given oral medications); concern for aspiration noted and speech therapy evaluation and MBS results reviewed. Exam Narrative: General: elderly frail female in NAD Heart: normal S1 and S2; no rub Lungs: decreased at bases Abdomen: soft, nontender, nondistended, positive bowel sounds Extremities: no cyanosis or clubbing; no edema Skin: no rash Objective Data Vital Signs Vital Signs: Vital Signs Temp Pulse Resp BP Pulse Ox O2 Del Method 08/31/23 14:00 97.9 F 79 18 190/68 H 95 08/31/23 11:51 Room Air 08/31/23 09:48 98.5 F 85 16 174/70 H 95 08/31/23 06:00 97.7 F 91 16 221/74 H 94 08/31/23 00:25 98.6 F 98 18 202/60 H 95 08/30/23 20:00 98.6 F 90 16 196/76 H 93 08/30/23 20:10 72 08/30/23 20:00 Room Air Intake/Output Intake/Output: Intake & Output 08/28/23 08/29/23 08/30/23 08/31/23 23:59 23:59 23:59 23:59 Intake Total 8625 335 1533 320 Output Total 361 011 4341 50 Balance 375 -155 -860 270 Meds/Results Medications: Active Medications Generic Name Dose Route Start Last Admin Trade Name Freq PRN Reason Stop Dose Admin Acetaminophen 650 mg 08/27/23 23:11 Acetaminophen 325 Mg Tablet PO Q6H PRN Mild Pain (1-3) or Fever Alprazolam 0.25 mg 08/27/23 23:11 Alprazolam (*Crx) 0.25 Mg Tablet PO HS PRN Anxiety Amlodipine Besylate 5 mg 08/29/23 09:00 08/31/23 11:03 Amlodipine Besylate 5 Mg Tablet PO Not Given QAM RENAE Bumetanide 2 mg 08/28/23 20:05 08/31/23 11:03 Bumetanide 1 Mg Tablet PO Not Given DAILY RENAE Buspirone HCl 5 mg 08/28/23 09:00 08/31/23 13:21 Buspirone Hcl 5 Mg Tablet PO 5 mg TID RENAE Administration Cefdinir 300 mg 08/30/23 21:00 08/30/23 20:11 Cefdinir 300 Mg Capsule PO 09/04/23 20:59 300 mg Q48H RENAE Administration Escitalopram Oxalate 5 mg
--- NOTE | 2023-08-31 14:14 | P.PNNP_ITS ---
Progress Note: A&P Assessment and Plan (1) End stage renal disease: Code(s): N18.6 - End stage renal disease Status: Chronic Assessment and Plan: * HD tomorrow * continue T/T/S schedule while hospitalized * follow electrolytes, volume status, and clearance (2) Closed displaced fracture of left femoral neck: Code(s): S72.002A - Fracture of unspecified part of neck of left femur, initial encounter for closed fracture Status: Acute Assessment and Plan: * as noted by admission imaging * Orthopedic Surgery recommendations noted * s/p left hip hemiarthroplasty (on 08/29/23) * pain control * PT/OT as tolerated (3) UTI (urinary tract infection): Qualifiers: Hematuria presence: with hematuria Urinary tract infection type: acute cystitis Qualified Code(s): N30.01 - Acute cystitis with hematuria Code(s): N39.0 - Urinary tract infection, site not specified Status: Acute Assessment and Plan: * suggestive by admission UA * on antibiotics * culture with E.coli * supportive therapy (4) Hyponatremia: Code(s): E87.1 - Hypo-osmolality and hyponatremia Status: Acute Assessment and Plan: * related free water intake and ESRD * dialysis will help correct/stabilize * follow trend of sodium (5) Hypertension: Code(s): I10 - Essential (primary) hypertension Status: Chronic Assessment and Plan: * can fluctuate to extremes * resume home medications * follow trend of hemodynamics (6) Anemia: Code(s): D64.9 - Anemia, unspecified Status: Chronic Assessment and Plan: * related to ESRD * Epogen with HD * follow trend of H/H Will continue to follow. Subjective Date/time seen: 08/31/23 14:14 Interval history: Follow-up for end stage renal disease on hemodialysis. Tolerated dialysis treatment yesterday without any issues or problems; pain control appears satisfactory; no apparent distress voiced; no issues/events overnight or earlier this morning; BP has been running on the high side (due to being given oral medications); concern for aspiration noted and speech therapy evaluation and MBS results reviewed. Exam Narrative: General: elderly frail female in NAD Heart: normal S1 and S2; no rub Lungs: decreased at bases Abdomen: soft, nontender, nondistended, positive bowel sounds Extremities: no cyanosis or clubbing; no edema Skin: no rash Objective Data Vital Signs Vital Signs: Vital Signs Temp Pulse Resp BP Pulse Ox O2 Del Method 08/31/23 14:00 97.9 F 79 18 190/68 H 95 08/31/23 11:51 Room Air 08/31/23 09:48 98.5 F 85 16 174/70 H 95 08/31/23 06:00 97.7 F 91 16 221/74 H 94 08/31/23 00:25 98.6 F 98 18 202/60 H 95 08/30/23 20:00 98.6 F 90 16 196/76 H 93 08/30/23 20:10 72 08/30/23 20:00 Room Air Intake/Output Intake/Output: Intake & Output 08/28/23 08/29/23 08/30/23 08/31/23 23:59 23:59 23:59 23:59 Intake Total 7519 863 8346 320 Output Total 904 695 1409 50 Balance 111 -003 -630 270 Meds/Results Medications: Active Medications Generic Name Dose Route Sta
--- NOTE | 2023-08-31 16:06 | PM.PNORT ---
Progress Note: A&P Assessment and Plan (1) Closed displaced fracture of left femoral neck: Code(s): S72.002A - Fracture of unspecified part of neck of left femur, initial encounter for closed fracture Status: Acute Assessment and Plan: postoperative day 2 left hip bipolar. Unable to be seen yesterday as patient was in dialysis. Actually a little more lucid today. Answers questions appropriately. Reports minimal if any pain. PT/OT with weight-bearing as tolerated. Placement when stable. Okay from orthopedic standpoint for transfer when dialysis arrangements are made. Subjective Subjective Date/Time Seen: 08/31/23 16:06 Post Op day: 2 Principal diagnosis: Left hip fracture Interval history: patient in bed, awake and alert. Minimal complaints of left hip pain. Patient was in dialysis yesterday during rounds and unable to be seen. Exam Const: General: comfortable; No acute distress Orientation/consciousness: oriented to person, No oriented to place and No oriented to time Resp: Effort & Inspection: normal respiratory effort and no audible wheezes Extrem: Right lower extremity: lower leg ( Negative Homans sign), ankle Details: normal ROM ( dorsiflexion and plantar flexion intact) and foot Details: vascular exam Details: dorsalis pedis pulse present and normal capillary refill, tendon exam Details: active flexion normal and active extension normal and motor-sensory exam Details: light-touch normal Location: in all toes; no edema Left lower extremity: normal to inspection, ankle Details: normal ROM and foot Details: vascular exam Details: dorsalis pedis pulse present and normal capillary refill and motor-sensory exam light-touch normal in all toes; no edema Other: Left hip dressing clean and dry Objective Data Vital Signs Vital Signs: Vital Signs - 24 hr 08/30/23 20:00 08/30/23 20:10 08/30/23 20:00 Temperature 98.6 F Pulse Rate 72 90 Respiratory Rate 16 Blood Pressure 196/76 H Pulse Oximetry 93 Oxygen Delivery Room Air 08/31/23 00:25 08/31/23 06:00 08/31/23 09:48 Temperature 98.6 F 97.7 F 98.5 F Pulse Rate 98 91 85 Respiratory Rate 18 16 16 Blood Pressure 202/60 H 221/74 H 174/70 H Pulse Oximetry 95 94 95 Oxygen Delivery 08/31/23 11:51 08/31/23 14:00 Temperature 97.9 F Pulse Rate 79 Respiratory Rate 18 Blood Pressure 190/68 H Pulse Oximetry 95 Oxygen Delivery Room Air Intake/Output Intake/Output: Intake & Output 08/28/23 08/29/23 08/30/23 08/31/23 23:59 23:59 23:59 23:59 Intake Total 0198 256 4241 320 Output Total 972 098 7852 50 Balance 945 -375 -375 270 Meds/Results Medications: Active Medications Generic Name Dose Route Start Last Admin Trade Name Freq PRN Reason Stop Dose Admin Acetaminophen 650 mg 08/27/23 23:11 Acetaminophen 325 Mg Tablet PO Q6H PRN Mild Pain (1-3) or Fever Alprazolam 0.25 mg 08/27/23 23:11 Alprazolam (*Crx) 0.25 Mg Tablet PO HS PRN Anxiety Amlodipine Besylate 5 mg 08/29/23 09:00 08/31/23 11:03 Amlodipine Besylate 5 Mg Tablet PO Not Given QAM RENAE Bumetanide 2 mg 08/28/23 20:05 08/31/23 11:03 Bumetanide 1 Mg Tablet PO Not Given DAILY RENAE Buspirone HCl 5 mg 08/28/23 09:00 08/31/23 13:21 Buspirone Hcl 5 Mg Tablet PO 5 mg TID RENAE Administration Cefdinir 300 mg 08/30/23 21:00 08/30/23 20:11 Cefdinir 300 Mg Capsule PO 09/04/23 20:59 300 mg Q48H RENAE Administration Escitalopram Oxalate 5 mg 08/28/23 09:00 08/31/23 11:03 Escitalopram Oxalate 5 Mg Tablet PO Not Given DAILY RENAE Hydralazine HCl 10 mg 08/28/23 08:23 08/31/23 06:41 Hydralazine Hcl 20 Mg/Ml Vial IV PUSH 10 mg Q8H PRN Administration Blood Pressure - High Cefazolin Sodium 1 gm in 50 mls @ 100 mls/hr 08/29/23 21:00 08/30/23 20:40 Ancef 1 Gm/Ns 50 Ml IVPB 08/31/23 21:29 Infused QHS RENAE Infusion Albumin Human 50 mls @ 999 mls/hr
[2023-08-31] MEDS: MEMANTINE 5 MG TABLET PO (20:53)
[2023-08-31] MEDS: LABETALOL HCL 100 MG TABLET 300 MG PO (20:53)
[2023-08-31] MEDS: ceFAZolin 1 GM/NS 50 ML 1 GM/50 ML BAG IVPB (20:53)
[2023-09-01] VITALS (19 sets, daily range): BP systolic 140–190; BP diastolic 61–77; PULSE 69–95; RESP 16–18; TEMP 36.6–37.1; O2SAT 95–97
[2023-09-01] MEDS: hydrALAZINE HCL 20 MG/ML VIAL 10 MG IV PUSH (05:48)
[2023-09-01 06:11] LABS: Basophils Absolute Auto 0.1 K/mm3 (0.0-0.1); Basophils Percent Auto 0.8 % (0.2-1.2); Eosinophils Percent Auto 0.5 % (0-4.4); Hematocrit 27.6 % (37.0-47.0); Hemoglobin 8.7 g/dL (12.0-15.0); Immature Granulocyte Absolute 0.14 K/mm3 (0.00-0.031); Immature Granulocyte Percent A 1.6 % (0-0.5); Lymphocytes Absolute Auto 1.35 K/mm3 (0.9-3.2); Lymphocytes Percent Auto 15.3 % (18.3-44.2); Mean Corpuscular HGB Conc 31.5 g/dl (32-36); Mean Corpuscular Hemoglobin 29.1 pg (26-34); Mean Corpuscular Volume 92.3 fl (80-100); Mean Platelet Volume 9.2 fl (7.4-10.4); Monocytes Absolute Auto 1.3 K/mm3 (0.1-0.6); Monocytes Percent Auto 14.5 % (2.6-8.5); Neutrophils Absolute Auto 5.9 K/mm3 (1.3-6.7); Neutrophils Percent Auto 67.3 % (45.5-73.1); Platelet Count Result 217 k/mm3 (150-375); Red Blood Count 2.99 M/mm3 (4.2-5.4); Red Cell Distribution Width 13.8 % (11.5-14.5); White Blood Count 8.8 K/mm3 (4.5-10.0)
[2023-09-01 06:27] LABS: Albumin Level 3.6 g/dL (3.5-5.1); Anion Gap 11 mmol/L (8-16); Blood Urea Nitrogen 63 mg/dL (7-17); Calcium 9.7 mg/dL (8.4-10.2); Carbon Dioxide 27 mmol/L (22-30); Chloride 95 mmol/L (98-107); Estimated CRCL calculation 7 ml/min; Estimated Glomerular Filt Rate 8; Glucose 111 mg/dL (65-110); Phosphorus 5.3 mg/dL (2.5-4.5); Potassium 3.3 mmol/L (3.4-5.0); Sodium 133 mmol/L (137-145)
[2023-09-01] MEDS: BUMETANIDE 1 MG TABLET 2 MG PO (08:26)
[2023-09-01] MEDS: LABETALOL HCL 100 MG TABLET 300 MG PO (08:26)
[2023-09-01] MEDS: ESCITALOPRAM OXALATE 5 MG TABLET PO (08:26)
[2023-09-01] MEDS: MEMANTINE 5 MG TABLET PO (08:27)
[2023-09-01] MEDS: lisinopriL 20 MG TABLET PO (08:27)
[2023-09-01] MEDS: amLODIPine BESYLATE 5 MG TABLET PO (08:27)
[2023-09-01] MEDS: busPIRone HCL 5 MG TABLET PO (08:27)
--- NOTE | 2023-09-01 11:59 | PM.DS ---
DS: Admitting Diagnosis Discharge Date 09/01/23 Admitting Diagnosis Closed left hip fracture Urinary tract infection End-stage renal disease on hemodialysis Uncontrolled hypertension Anemia of chronic disease DS: Discharge Diagnosis Discharge Diagnosis (1) Closed left hip fracture: Qualifiers: Encounter type: initial encounter Qualified Code(s): S72.002A - Fracture of unspecified part of neck of left femur, initial encounter for closed fracture Code(s): S72.002A - Fracture of unspecified part of neck of left femur, initial encounter for closed fracture Status: Acute (2) Urinary tract infection: Qualifiers: Hematuria presence: without hematuria Urinary tract infection type: site unspecified Qualified Code(s): N39.0 - Urinary tract infection, site not specified Code(s): N39.0 - Urinary tract infection, site not specified Status: Acute (3) End-stage renal disease on hemodialysis: Code(s): N18.6 - End stage renal disease; Z99.2 - Dependence on renal dialysis Status: Acute (4) Uncontrolled hypertension: Code(s): I10 - Essential (primary) hypertension Status: Chronic (5) Anemia of chronic disease: Code(s): D63.8 - Anemia in other chronic diseases classified elsewhere Status: Chronic DS: Summary Hospital Course Reason for hospitalization: Closed left hip fracture, status post left total hip replacement UTI Hospital Course: This is an 82-year-old female who presented to the hospital with left hip pain after fall on 08/27/2023. Workup in hospital included a hip x-ray which shown a transverse displaced overlapping and angulated femoral neck fracture, head CT was negative, CT of the C-spine was negative for any fracture or traumatic malalignment. Orthopedics was consulted on the patient and she underwent a left total hip replacement on 08/29/2023. She also incidentally was found to have a urinary tract infection. Urine culture was showing E coli on the final result. She was treated with Rocephin for 3 days and then transitioned over to cefdinir. She has worked with PT and OT. However she is in need of an SNF for outpatient. Vital signs have been stable today, patient is on room air, she has remained afebrile. She also had her hemodialysis today. Labs today show a white blood cell count of 8.8, hemoglobin 8.7, hematocrit 27.6, sodium 133, potassium 3.3, chloride 95, BUN 63, creatinine 5.0, phos 5.3, AST 44, blood sugar ranging 111-131. Plan for her is to go to SNF and follow up with Orthopedics in a few weeks. Patient is stable for discharge at this time. Status at Discharge Cognitive/behavioral status at discharge: Alert oriented x4 Functional status at discharge: uses cane/walker Overall status at discharge: patient is progressing back to baseline Time Spent with Patient Time attestation: Total time spent providing and/or coordinating discharge services: Time spent: Greater than 30 minutes Exam Narrative: GENERAL: Comfortable, no acute distress HENMT: moist mucous membranes, atraumatic EYES: EOMI, PERRLA NECK: no lymphadenopathy, supple, no JVD, trachea midline RESPIRATORY:Lungs clear to auscultation, no adventitious lung sounds. CARDIO: RRR, normal S1 and S2. No murmur, gallop or friction rubs noted. Peripheral pulses intact, no edema : Urinary catheter in place and patent, clear ambrose urine draining GI: soft, nontender, non-distended normoactive bowel sounds present SKIN: no rashes, left hip OR dressing in place, clean dry and intact. EXTREMITIES: MAEW Neuro: Alert and oriented x3, no deficits Psych: Normal mood, normal affect, interactive. DS: Data Data Completed and Pending Completed studies during hospitalization: Hip x-ray Head CT Cervical spine CT Modified barium swallow Pending studies at discharge: None Labs on day of discharge: Labs from last 24 hours 09/01/23 05:51 WBC 8.8 RBC 2.99 L Hgb 8.7 L
--- NOTE | 2023-09-01 12:11 | PM.PNORT ---
Progress Note: A&P Assessment and Plan (1) Closed displaced fracture of left femoral neck: Code(s): S72.002A - Fracture of unspecified part of neck of left femur, initial encounter for closed fracture Status: Acute Assessment and Plan: POD #3: Left hip bipolar. PT/OT with weight-bearing as tolerated. Placement when stable. Change dressing daily and PRN. Okay from orthopedic standpoint for transfer when dialysis arrangements are made. Dispo: Follow up in 6 weeks Subjective Subjective Date/Time Seen: 09/01/23 12:11 Post Op day: 3 Principal diagnosis: Left hip fracture Interval history: patient in bed in HD, awake and alert. Minimal complaints of left hip pain. Review of Systems Review of Systems: All systems reviewed & are unremarkable except as noted in HPI and below Constitutional: Constitutional: Reports as per HPI and Reports no additional constitutional complaints Eyes: Eyes: Reports as per HPI and Reports no additional eye complaints ENT: Reports system reviewed and no additional complaints, except as documented and Reports as per HPI Cardiovascular: Cardiovascular: Reports as per HPI and Reports no additional cardiovascular complaints Respiratory: Respiratory: Reports as per HPI and Reports no additional respiratory complaints Gastrointestinal: Gastrointestinal: Reports as per HPI and Reports no additional gastrointestinal complaints Genitourinary: Genitourinary: Reports no additional female genitourinary complaints and Reports as per HPI Musculoskeletal: Musculoskeletal: Reports no additional musculoskeletal complaints and Reports as per HPI Integumentary/Breasts: Skin/Breast: Reports system reviewed and no additional complaints, except as docu and Reports as per HPI Neurologic: Reports system reviewed and no additional complaints, except as documented and Reports as per HPI Psychiatric: Psychiatric: Reports no additional psychiatric complaints and Reports as per HPI Exam Const: General: comfortable; No acute distress Orientation/consciousness: oriented to person, No oriented to place and No oriented to time Resp: Effort & Inspection: normal respiratory effort and no audible wheezes Extrem: Right lower extremity: lower leg ( Negative Homans sign), ankle Details: normal ROM ( dorsiflexion and plantar flexion intact) and foot Details: vascular exam Details: dorsalis pedis pulse present and normal capillary refill, tendon exam Details: active flexion normal and active extension normal and motor-sensory exam Details: light-touch normal Location: in all toes; no edema Left lower extremity: normal to inspection, ankle Details: normal ROM and foot Details: vascular exam Details: dorsalis pedis pulse present and normal capillary refill and motor-sensory exam light-touch normal in all toes; no edema Other: Left hip dressing clean and dry Objective Data Vital Signs Vital Signs: Vital Signs - 24 hr 08/31/23 14:00 08/31/23 20:53 08/31/23 20:58 Temperature 36.6 C 36.6 C Pulse Rate 79 77 79 Respiratory Rate 18 18 Blood Pressure 190/68 H 209/59 H Pulse Oximetry 95 96 Oxygen Delivery 08/31/23 20:00 09/01/23 05:45 09/01/23 08:26 Temperature 37.1 C Pulse Rate 79 95 90 Respiratory Rate 18 18 Blood Pressure 190/73 H Pulse Oximetry 96 95 Oxygen Delivery Room Air Intake/Output Intake/Output: Intake & Output 08/29/23 08/30/23 08/31/23 09/01/23 23:59 23:59 23:59 23:59 Intake Total 350 1220 470 300 Output Total 920 2100 125 250 Balance -570 -880 345 50 Meds/Results Medications: Active Medications Generic Name Dose Route Start Last Admin Trade Name Freq PRN Reason Stop Dose Admin Acetaminophen 650 mg 08/27/23 23:11 Acetaminophen 325 Mg Tablet PO Q6H PRN Mild Pain (1-3) or Fever Alprazolam 0.25 mg 08/27/23 23:11 Alprazolam (*Crx) 0.25 Mg Tablet PO HS PRN Anxiety Amlodipine Besylate 5 mg 08/29/23 09:00
--- NOTE | 2023-09-01 12:37 | PM.PNNEP ---
Progress Note: A&P Assessment and Plan (1) End stage renal disease: Code(s): N18.6 - End stage renal disease Status: Chronic Assessment and Plan: HD today continue T/T/S schedule while hospitalized follow electrolytes, volume status, and clearance (2) Closed displaced fracture of left femoral neck: Code(s): S72.002A - Fracture of unspecified part of neck of left femur, initial encounter for closed fracture Status: Acute Assessment and Plan: as noted by admission imaging Orthopedic Surgery recommendations noted s/p left hip hemiarthroplasty (on 08/29/23) pain control PT/OT as tolerated (3) UTI (urinary tract infection): Qualifiers: Hematuria presence: with hematuria Urinary tract infection type: acute cystitis Qualified Code(s): N30.01 - Acute cystitis with hematuria Code(s): N39.0 - Urinary tract infection, site not specified Status: Acute Assessment and Plan: suggestive by admission UA on antibiotics culture with E.coli supportive therapy (4) Hyponatremia: Code(s): E87.1 - Hypo-osmolality and hyponatremia Status: Acute Assessment and Plan: related free water intake and ESRD dialysis will help correct/stabilize follow trend of sodium (5) Hypertension: Code(s): I10 - Essential (primary) hypertension Status: Chronic Assessment and Plan: can fluctuate to extremes resume home medications follow trend of hemodynamics (6) Anemia: Code(s): D64.9 - Anemia, unspecified Status: Chronic Assessment and Plan: related to ESRD Epogen with HD follow trend of H/H Will continue to follow. Subjective Date/time seen: 09/01/23 12:37 Interval history: Follow-up for end stage renal disease on hemodialysis. Tolerating dialysis treatment at the time of my visit (seen on HD at 12:20PM); no apparent distress noted; no issues/events overnight or earlier this morning; pain control seems satisfactory; no otgher acute complaints voiced at this time. Exam Narrative: General: elderly frail female in NAD Heart: normal S1 and S2; no rub Lungs: decreased at bases Abdomen: soft, nontender, nondistended, positive bowel sounds Extremities: no cyanosis or clubbing; no edema Skin: no nodules Objective Data Vital Signs Vital Signs: Vital Signs Temp Pulse Resp BP Pulse Ox O2 Del Method 09/01/23 11:51 97.8 F 84 18 156/61 H 97 09/01/23 08:26 90 09/01/23 05:45 98.8 F 95 18 190/73 H 95 08/31/23 20:00 79 18 96 Room Air 08/31/23 20:58 97.8 F 79 18 209/59 H 96 08/31/23 20:53 77 Intake/Output Intake/Output: Intake & Output 08/29/23 08/30/23 08/31/23 09/01/23 23:59 23:59 23:59 23:59 Intake Total 350 1220 470 420 Output Total 920 2100 125 250 Balance -570 -880 345 170 Meds/Results Medications: Active Medications Generic Name Dose Route Start Last Admin Trade Name Freq PRN Reason Stop Dose Admin Acetaminophen 650 mg 08/27/23 23:11 Acetaminophen 325 Mg Tablet PO Q6H PRN Mild Pain (1-3) or Fever Alprazolam 0.25 mg 08/27/23 23:11 Alprazolam (*Crx) 0.25 Mg Tablet PO HS PRN Anxiety Amlodipine Besylate 5 mg 08/29/23 09:00 09/01/23 08:27 Amlodipine Besylate 5 Mg Tablet PO 5 mg QAM RENAE Administration Bumetanide 2 mg 08/28/23 20:05 09/01/23 08:26 Bumetanide 1 Mg Tablet PO 2 mg DAILY RENAE Administration Buspirone HCl 5 mg 08/28/23 09:00 09/01/23 13:57 Buspirone Hcl 5 Mg Tablet PO Not Given TID RENAE Cefdinir 300 mg 08/30/23 21:00 08/30/23 20:11 Cefdinir 300 Mg Capsule PO 09/04/23 20:59 300 mg Q48H RENAE Administration Epoetin Ricardo-epbx 10,000 units 09/01/23 20:25 09/01/23 13:06 Epoetin Ricardo-Epbx 10,000 Units/Ml Vial IV PUSH 09/01/23 20:26 10,000 units ONCE ONE Administration Escitalopram Oxalate 5 mg 08/28/23 09:00 11
--- NOTE | 2023-09-01 12:37 | P.PNNP_ITS ---
Progress Note: A&P Assessment and Plan (1) End stage renal disease: Code(s): N18.6 - End stage renal disease Status: Chronic Assessment and Plan: * HD today * continue T/T/S schedule while hospitalized * follow electrolytes, volume status, and clearance (2) Closed displaced fracture of left femoral neck: Code(s): S72.002A - Fracture of unspecified part of neck of left femur, initial encounter for closed fracture Status: Acute Assessment and Plan: * as noted by admission imaging * Orthopedic Surgery recommendations noted * s/p left hip hemiarthroplasty (on 08/29/23) * pain control * PT/OT as tolerated (3) UTI (urinary tract infection): Qualifiers: Hematuria presence: with hematuria Urinary tract infection type: acute cystitis Qualified Code(s): N30.01 - Acute cystitis with hematuria Code(s): N39.0 - Urinary tract infection, site not specified Status: Acute Assessment and Plan: * suggestive by admission UA * on antibiotics * culture with E.coli * supportive therapy (4) Hyponatremia: Code(s): E87.1 - Hypo-osmolality and hyponatremia Status: Acute Assessment and Plan: * related free water intake and ESRD * dialysis will help correct/stabilize * follow trend of sodium (5) Hypertension: Code(s): I10 - Essential (primary) hypertension Status: Chronic Assessment and Plan: * can fluctuate to extremes * resume home medications * follow trend of hemodynamics (6) Anemia: Code(s): D64.9 - Anemia, unspecified Status: Chronic Assessment and Plan: * related to ESRD * Epogen with HD * follow trend of H/H Will continue to follow. Subjective Date/time seen: 09/01/23 12:37 Interval history: Follow-up for end stage renal disease on hemodialysis. Tolerating dialysis treatment at the time of my visit (seen on HD at 12:20PM); no apparent distress noted; no issues/events overnight or earlier this morning; pain control seems satisfactory; no otgher acute complaints voiced at this time. Exam Narrative: General: elderly frail female in NAD Heart: normal S1 and S2; no rub Lungs: decreased at bases Abdomen: soft, nontender, nondistended, positive bowel sounds Extremities: no cyanosis or clubbing; no edema Skin: no nodules Objective Data Vital Signs Vital Signs: Vital Signs Temp Pulse Resp BP Pulse Ox O2 Del Method 09/01/23 11:51 97.8 F 84 18 156/61 H 97 09/01/23 08:26 90 09/01/23 05:45 98.8 F 95 18 190/73 H 95 08/31/23 20:00 79 18 96 Room Air 08/31/23 20:58 97.8 F 79 18 209/59 H 96 08/31/23 20:53 77 Intake/Output Intake/Output: Intake & Output 08/29/23 08/30/23 08/31/23 09/01/23 23:59 23:59 23:59 23:59 Intake Total 350 1220 470 420 Output Total 920 2100 125 250 Balance -570 -880 345 170 Meds/Results Medications: Active Medications Generic Name Dose Route Start Last Admin Trade Name Freq PRN Reason Stop Dose Admin Acetaminophen 650 mg 08/27/23 23:11 Acetaminophen 325 Mg Tablet PO Q6H PRN Mild Pain (1-3) or Fever
[2023-09-01] MEDS: EPOETIN ALFA-EPBX 10,000 UNITS/ML VIAL 10000 UNITS IV PUSH (13:06)
--- NOTE | 2023-09-01 13:19 | PCSTNOTE ---
The patient treatment was not able to be completed on 09/01 due to patient in dialysis. Will plan to continue treatment per plan of care.
[2023-09-01 16:00] LABS: Influenza A QL RT-PCR Negative (Negative); Influenza B QL RT-PCR Negative (Negative); SARS-CoV-2 RNA PCR Negative (Negative)
== END 2023-09-01 17:15 | DRG 521 ==
LOC: ANHED 17:00 → ANH3MED 20:20
PROVIDERS: Internal Medicine Critical Care Medicine; Internal Medicine Nephrology; Nurse Practitioner Acute Care; Orthopaedic Surgery; Physician Assistant; Admitting Provider General Practice; Emergency Provider Physician Assistant; Visit Provider General Practice
PROC: 0SRS01A Replacement of Left Hip Joint, Femoral Surface with Metal Synthetic Substitute, Uncemented, Open Approach (ICD-10-PCS; CPT 27125; principal; 2023-08-29 09:30)
DX: S72.032A Displaced midcervical fracture of left femur, initial encounter for closed fracture (principal); N18.6 End stage renal disease; I12.0 Hypertensive chronic kidney disease with stage 5 chronic kidney disease or end stage renal disease; N39.0 Urinary tract infection, site not specified; E87.1 Hypo-osmolality and hyponatremia; Z68.1 Body mass index [BMI] 19.9 or less, adult; B96.20 Unspecified Escherichia coli [E. coli] as the cause of diseases classified elsewhere; W01.0XXA Fall on same level from slipping, tripping and stumbling without subsequent striking against object, initial encounter; D63.1 Anemia in chronic kidney disease; R54 Age-related physical debility; Z11.52 Encounter for screening for COVID-19; Z99.2 Dependence on renal dialysis; Z86.73 Personal history of transient ischemic attack (TIA), and cerebral infarction without residual deficits; Z90.49 Acquired absence of other specified parts of digestive tract; Z87.891 Personal history of nicotine dependence
CPT/HCPCS: 36415; 70450; 72125; 73502; 80048; 80053; 80069; 81001; 83735; 84100; 85025; 85027; 85610; 85730; 86706; 86850; 86900; 86901; 87077; 87086; 87088; 87186; 87340; 87636; 92610; 92611; 93005; 96365; 96375; 96376; 97110; 97161; 97166; 97530; 97535; 99285; A9270; C1776; G0257; G0378; J0360; J0690; J0696; J2270; J2405; J2704; J3010; J7030; J7120; Q5105

== ENCOUNTER 2023-09-04 10:27 | Emergency (ER) | payer MEDICARE, SELFPAY ==
[2023-09-04] VITALS (9 sets, daily range): BP systolic 108–109; BP diastolic 45–48; PULSE 60–63; RESP 16–22; TEMP 36.6; O2SAT 94–100
--- NOTE | ~2023-09-04 | XR_ITS ---
EXAMINATION: XR chest 2V DATE: 09/04/2023 10:49 INDICATION: Weakness TECHNIQUE: AP and lateral views of the chest are obtained. COMPARISON: 07/27/2023 FINDINGS: There is atelectasis of the left lung base. No pleural effusion or pneumothorax. The cardio mediastinal silhouette is normal. There is mild thoracic spondylosis. 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 Surgical clips in the right upper quadrant are likely from prior cholecystectomy. IMPRESSION: 1. Left basilar atelectasis. Reviewed, dictated and finalized at location F. IOPULMONARY TECHNOLOGIST
--- NOTE | ~2023-09-04 | CT_ITS ---
EXAMINATION: CT brain wo con INDICATION: Altered mental status, transient alteration of awareness COMPARISON: 08/27/2023 TECHNIQUE: Standard unenhanced head CT. The dose-length product (DLP) was 605.33 mGy-cm. The mA was a djusted according to patient size. Iterative reconstruction technique was employed. FINDINGS: No acute intraparenchymal hemorrhage. No evidence of mass lesion. No evidence of acute infa rction. There is moderate periventricular and subcortical hypodensity probably related to small vesse l ischemic disease. There is moderate prominence of the sulci and ventricles related to cerebral atro phy. Intracranial calcified cerebral atherosclerosis is noted. No extra-axial collections. No mass ef fect or midline shift. Changes in the globes are likely from ocular lens surgery. The visualized sinu ses and mastoid air cells are well aerated. IMPRESSION: 1. No acute intracranial abnormality. 2. Age related findings. Reviewed, dictated and finalized at location F. PMENT LEAD
--- NOTE | 2023-09-04 10:32 | ECG_ITS ---
Measurements Intervals Pinch Rate: 60 P: -25 WV: 164 QRS: 15 QRSD: 92 T: 42 QT: 487 QTc: 487 Interpretive Statements SINUS RHYTHM LEFT VENTRICULAR HYPERTROPHY CONSIDER INFERIOR INFARCT, AGE INDETERMINATE PROLONGED QT INTERVAL ABNORMAL ECG COMPARED TO ECG 08/27/2023 17:18:01 PROLONGED QT INTERVAL NOW PRESENT Electronically Signed On 09-04-2023 16:36:34 [employer] by Edward Castaneda D.O.
--- NOTE | 2023-09-04 10:39 | ED.GENADULT ---
HPI - General Adult General Chief complaint: Weakness Stated complaint: ams Time Seen by Provider: 09/04/23 10:27 Source: patient and other (detention documentation ) History of Present Illness HPI narrative: This is an 83 year old who presents from the detention for report of altered mental status/weakness. It is reported that she was unresponsive for [facility] staff. She was noted to eat her breakfast this morning and then fell asleep but was difficult to arouse, even to sternal rub. She denies any complaints, just states she is tired. Reportedly underwent dialysis yesterday. Per [facility] documentation, meds also include acetaminophen, cefdinir, lisinopril. POC glucose 122 for EMS. Patient is a limited historian secondary to dementia. Related Data Home Medications Medication Instructions Recorded Confirmed alprazolam 0.25 mg tablet 0.25 mg PO HS PRN Anxiety 01/24/23 08/27/23 buspirone 5 mg tablet 5 mg PO TID anxiety 01/24/23 08/27/23 lisinopril 20 mg tablet 20 mg PO DAILY 01/24/23 08/27/23 escitalopram oxalate 5 mg tablet 5 mg PO DAILY 08/27/23 08/27/23 hydrochlorothiazide 12.5 mg capsule 12.5 mg PO DAILY 08/27/23 08/27/23 labetalol 200 mg tablet 300 mg PO BID 08/27/23 08/27/23 memantine 5 mg tablet 5 mg PO BID 08/27/23 08/27/23 sucroferric oxyhydroxide 500 mg 500 mg PO TID 08/27/23 08/27/23 chewable tablet (Velphoro) Allergies Allergy/AdvReac Type Severity Reaction Status Date / Time No Known Allergies Allergy Verified 09/04/23 10:59 [facility] Past Medical History Medical History Anemia of chronic disease Cerebrovascular accident Closed displaced fracture of left femoral neck End-stage renal disease on hemodialysis Gout Hypertension Memory loss Surgical History Surgical History History of appendectomy History of cataract extraction History of cholecystectomy History of colonoscopy History of oophorectomy History of parathyroidectomy Family History Family History Father Family history of elevated blood lipids Hypertension Sibling Family history of elevated blood lipids Hypertension Cancer of jaw Mother Myocardial infarction Social History Social History Social History: Surrogate medical decision maker: Agnes Monroy and Stacy Sheppard, daughters. Code status: Full code. Smoking status: Former smoker Second hand tobacco smoke exposure: No Alcohol intake: current Substance use: never Lack of Transportation: No Lack of Food: Never True Current Housing: I Do Not Have Housing Concerned About Future Housing: No Difficulty Paying Gas/Electric Bills: No Difficulty Paying for Meds: No Currently Unemployed: No Education: Associate Degree Difficulty w/ Childcare or Family Care: No Additional living arrangements comments: . Has 2 children. Resides at [facility] since 09/01/23 Additional occupation/education comments: Retired. Spiritual care concerns: No Exam Const: General: confusion and ill appearing chronically; No diaphoretic Limitations: altered mental status (dementia) Other: initially sleeping but easily arouses to verbal stimuli; temporal wasting and bony prominences HENMT: Head: no contusions, no hematomas and no lacerations Other: gross auditory acuity intact Neck: Neck: normal visual inspection Chest: Other: well-healed scar right anterior chest (likely from dialysis access); no surrounding erythema or purulent discharge, no induration, non-tender Resp: Effort & Inspection: normal respiratory effort, not labored, no retractions, not tachypneic and no use of accessory muscles Auscultation: clear to auscultation bilaterally Cardio: Rate: regular rate GI: Inspection: non-distended GI
[2023-09-04 10:59] LABS: Glucose Point of Care 158 mg/dl (65-105)
[2023-09-04 11:01] LABS: Basophils Absolute Auto 0.1 K/mm3 (0.0-0.1); Basophils Percent Auto 0.7 % (0.2-1.2); Eosinophils Absolute Auto 0.3 K/mm3 (0-0.3); Eosinophils Percent Auto 2.7 % (0-4.4); Hematocrit 31.5 % (37.0-47.0); Hemoglobin 9.7 g/dL (12.0-15.0); Immature Granulocyte Absolute 0.12 K/mm3 (0.00-0.031); Immature Granulocyte Percent A 1.2 % (0-0.5); Lymphocytes Absolute Auto 1.22 K/mm3 (0.9-3.2); Lymphocytes Percent Auto 12.7 % (18.3-44.2); Mean Corpuscular HGB Conc 30.8 g/dl (32-36); Mean Corpuscular Hemoglobin 29.3 pg (26-34); Mean Corpuscular Volume 95.2 fl (80-100); Mean Platelet Volume 8.8 fl (7.4-10.4); Monocytes Percent Auto 10.8 % (2.6-8.5); Neutrophils Absolute Auto 6.9 K/mm3 (1.3-6.7); Neutrophils Percent Auto 71.9 % (45.5-73.1); Platelet Count Result 230 k/mm3 (150-375); Red Blood Count 3.31 M/mm3 (4.2-5.4); White Blood Count 9.6 K/mm3 (4.5-10.0)
[2023-09-04 11:09] LABS: Alanine Aminotransferase 11 U/L (6-35); Albumin Level 3.7 g/dL (3.5-5.1); Alkaline Phosphatase 99 U/L (38-126); Anion Gap 8 mmol/L (8-16); Aspartate Amino Transferase 31 U/L (14-36); Bilirubin,Total 0.8 mg/dL (0.2-1.3); Blood Urea Nitrogen 44 mg/dL (7-17); Calcium 10.1 mg/dL (8.4-10.2); Carbon Dioxide 34 mmol/L (22-30); Chloride 89 mmol/L (98-107); Estimated CRCL calculation 9 ml/min; Estimated Glomerular Filt Rate 12; Glucose 158 mg/dL (65-110); Potassium 4.1 mmol/L (3.4-5.0); Sodium 131 mmol/L (137-145)
[2023-09-04 11:39] LABS: Acetaminophen < 10 ug/mL (10-30)
[2023-09-04 11:44] LABS: Appearance Urine Cloudy (Clear); Bacteria Urine None Seen /hpf; Bilirubin Urine Negative (Negative); Blood Urine Negative (Negative); Budding Yeast Urine Present /hpf; Color Urine Yellow (Yellow); Glucose Urine UA Negative (Negative); Granular Casts Urine Present /lpf; Hyaline Casts Urine Present /lpf; Ketones Urine Negative (Negative); Leukocyte Esterase Ur 1+ LEU/UL (Negative); Nitrate Urine Negative (Negative); Protein Urine 3+ mg/dL (Negative); RBC Urine 0-2 /hpf (0-2); Specific Grav Ur 1.016 (1.001-1.035); Squamous Epithelial Cell Urine Few /hpf (Few); Urobilinogen Urine 0.2 mg/dL (<2.0); WBC Urine 21-50 /hpf; pH Urine 7.5 (5.0-9.0)
[2023-09-04 11:46] LABS: Add Urine Microscopic? YES
[2023-09-04 11:52] LABS: Troponin I 0.013 ng/mL (0.000-0.034)
--- NOTE | 2023-09-04 13:06 | PC.NURSE ---
Called dtr Stacy Sheppard update given.
--- NOTE | 2023-09-08 19:39 | PC.NURSE ---
Meds Ceft was stopped 30 minutes after administration.
== END 2023-09-04 14:01 ==
PROVIDERS: Emergency Provider Student in an Organized Health Care Education/Training Program
DX: N39.0 Urinary tract infection, site not specified (principal); I12.0 Hypertensive chronic kidney disease with stage 5 chronic kidney disease or end stage renal disease; N18.6 End stage renal disease; D63.1 Anemia in chronic kidney disease; Z99.2 Dependence on renal dialysis; M10.9 Gout, unspecified; Z98.49 Cataract extraction status, unspecified eye; E89.2 Postprocedural hypoparathyroidism; Z87.891 Personal history of nicotine dependence; R41.3 Other amnesia; I51.7 Cardiomegaly; R94.31 Abnormal electrocardiogram [ECG] [EKG]; Z79.899 Other long term (current) drug therapy
CPT/HCPCS: 36415; 70450; 71046; 80053; 80307; 81001; 82948; 84484; 85025; 87086; 93005; 96365; 99284; J0696

== ENCOUNTER 2023-09-29 11:58 | Emergency (ER) | payer MEDICARE, SELFPAY ==
--- NOTE | ~2023-09-29 | CT_ITS ---
EXAMINATION: CT brain wo con DATE: 09/29/2023 12:46 INDICATION: Status post fall. Head injury. TECHNIQUE: Computed tomography (CT) of the head was performed without intravenous contrast. The dose- length product was 605.33 mGy-cm. Automated exposure control and iterative reconstruction technique were employed. COMPARISON: CT dated 09/04/2023 FINDINGS: There is an acute right frontal epidural hematoma measuring 10 mm thickness. No significant midline shift. No ventriculomegaly. Generalized atrophy. There is intracranial atherosclerosis. Ther e are scattered moderate periventricular and subcortical white matter changes, most likely related to small vessel ischemic disease (microangiopathy). No depressed skull fractures. Paranasal sinuses and mastoids are pneumatized. IMPRESSION: 1. Small acute right frontal epidural hematoma measuring [address] Jeremy Patel discussed with Dr. Sylwia Mota MD at 09/29/2023 12:51 HELICOPTER ENGINEER. Reviewed, dictated and finalized at location L. COPTER ENGINEER
--- NOTE | ~2023-09-29 | XR_ITS ---
EXAMINATION: [id number] DATE: 09/29/2023 13:44 INDICATION: Right chest pain. Fall. TECHNIQUE: A frontal view of the chest and 2 views on 3 radiographs of the right ribs were obtained. COMPARISON: Chest 2 views 09/04/2023, CT abdomen and pelvis 08/21/2021 FINDINGS: There is mild elevation of left hemidiaphragm. There is mild atelectasis at left lung base. No pleural effusion or pneumothorax. The heart size is normal. Surgical clips in the right upper juany drant are likely from cholecystectomy. IMPRESSION: 1. No rib fracture. 2. Mild elevation of left hemidiaphragm with mild atelectasis at left lung base. Reviewed, dictated and finalized at location A. GLE TRIMMER IMPRESSION: 1. No rib fracture. 2. Mild elevation of left hemidiaphragm with mild atelectasis at left lung base .
[2023-09-29 11:58] VITALS: BP 159/74; PULSE 69; RESP 22; TEMP 36.2; O2SAT 97
--- NOTE | 2023-09-29 12:06 | ECG_ITS ---
Measurements Intervals [place] Rate: 71 P: 51 RI: 193 QRS: 23 QRSD: 94 T: 49 QT: 407 QTc: 445 Interpretive Statements SINUS RHYTHM VOLTAGE CRITERIA FOR LVH BASELINE ARTIFACT- I, II, III, AVL, AVF, V1-V4 BORDERLINE ECG COMPARED TO ECG 09/04/2023 10:35:25 Electronically Signed On 09-29-2023 12:48:08 STUDENT AFFAIRS DEAN by Edward Castaneda D.O.
[2023-09-29 12:16] VITALS: BP 170/65; PULSE 73; RESP 19; O2SAT 96
--- NOTE | 2023-09-29 12:24 | ED.DIZZY ---
HPI - Dizziness General Chief Complaint: Syncope Stated Complaint: syncope at dialysis Time Seen by Provider: 09/29/23 12:23 Source: family and EMS Related Data Home Medications Medication Instructions Recorded Confirmed alprazolam 0.25 mg tablet 0.25 mg PO HS PRN Anxiety 01/24/23 08/27/23 buspirone 5 mg tablet 5 mg PO TID anxiety 01/24/23 08/27/23 lisinopril 20 mg tablet 20 mg PO DAILY 01/24/23 08/27/23 escitalopram oxalate 5 mg tablet 5 mg PO DAILY 08/27/23 08/27/23 hydrochlorothiazide 12.5 mg capsule 12.5 mg PO DAILY 08/27/23 08/27/23 labetalol 200 mg tablet 300 mg PO BID 08/27/23 08/27/23 memantine 5 mg tablet 5 mg PO BID 08/27/23 08/27/23 sucroferric oxyhydroxide 500 mg 500 mg PO TID 08/27/23 08/27/23 chewable tablet (Velphoro) Allergies Allergy/AdvReac Type Severity Reaction Status Date / Time No Known Allergies Allergy Verified 09/04/23 10:59 Review of Systems Review of Systems: All systems reviewed & are unremarkable except as noted in HPI and below PMFSH Past Medical History Medical History Anemia of chronic disease Cerebrovascular accident Closed displaced fracture of left femoral neck End-stage renal disease on hemodialysis Gout Hypertension Memory loss Surgical History Surgical History History of appendectomy History of cataract extraction History of cholecystectomy History of colonoscopy History of oophorectomy History of parathyroidectomy Family History Family History Father Family history of elevated blood lipids Hypertension Sibling Family history of elevated blood lipids Hypertension Cancer of jaw Mother Myocardial infarction Social History Social History Social History: Surrogate medical decision maker: Agnes Monroy and Stacy Silver, daughters. Code status: Full code. Smoking status: Former smoker Second hand tobacco smoke exposure: No Alcohol intake: current Substance use: never Lack of Transportation: No Lack of Food: Never True Current Housing: I Do Not Have Housing Concerned About Future Housing: No Difficulty Paying Gas/Electric Bills: No Difficulty Paying for Meds: No Currently Unemployed: No Education: Associate Degree Difficulty w/ Childcare or Family Care: No Additional living arrangements comments: . Has 2 children. Resides at [facility] since 09/01/23 Additional occupation/education comments: Retired. Spiritual care concerns: No Exam Narrative: GENERAL APPEARANCE: WELL-DEVELOPED, WELL-NOURISHED SKIN: SCATTERED BRUISES, PALE SKIN HEAD: FOREHEAD BRUISES EYES: CLEAR CONJUNCTIVA ENT: OROPHARYNX NORMAL, EARS NORMAL, NOSE NORMAL NECK: SUPPLE, NONTENDER CHEST AND RESPIRATORY: AIRWAY PATENT, NO RESPIRATORY DISTRESS, NO ACCESSORY MUSCLE USE HEART: REGULAR RATE/RHYTHM ABDOMEN: SOFT, NONTENDER, NO ORGANOMEGALY, QUIET BOWEL SOUNDS VASCULAR: NORMAL PERIPHERAL PULSES, NORMAL CAPILLARY REFILL. MUSCULOSKELETAL: NORMAL RANGE OF MOTION, NONTENDER BACK NEUROLOGIC: ALERT AND ORIENTED ?3, ACADEMIC ADVISEMENT DIRECTOR IS NORMAL TESTED, NO GROSS MOTOR DEFICIT Course Consultations Consultation #1: DR. ARIZA, STROKE TEAM AT [facility] PATIENT NEED TO BE SEEN BY TRAUMA Date: 09/29/23 Time: 13:54 Consultation #2: DR. FONTENOT, NEUROSURGEON, SEND PATIENT TO ED Date: 09/29/23 Time: 13:54 Consultation #3: DR. DUEÑAS, EMERGENCY PHYSICIAN AT [facility] Date: 09/29/23 Time: 13:55 Vital Signs
[2023-09-29 12:31] VITALS: BP 170/66; PULSE 71; RESP 22; O2SAT 94
[2023-09-29 13:11] LABS: Basophils Absolute Auto 0.1 K/mm3 (0.0-0.1); Basophils Percent Auto 0.5 % (0.2-1.2); Eosinophils Absolute Auto 0.1 K/mm3 (0-0.3); Eosinophils Percent Auto 0.8 % (0-4.4); Hematocrit 28.7 % (37.0-47.0); Hemoglobin 8.7 g/dL (12.0-15.0); Immature Granulocyte Absolute 0.06 K/mm3 (0.00-0.031); Immature Granulocyte Percent A 0.5 % (0-0.5); Lymphocytes Absolute Auto 1.55 K/mm3 (0.9-3.2); Lymphocytes Percent Auto 14.2 % (18.3-44.2); Mean Corpuscular HGB Conc 30.3 g/dl (32-36); Mean Corpuscular Hemoglobin 29.2 pg (26-34); Mean Corpuscular Volume 96.3 fl (80-100); Mean Platelet Volume 8.6 fl (7.4-10.4); Monocytes Absolute Auto 1.4 K/mm3 (0.1-0.6); Monocytes Percent Auto 12.6 % (2.6-8.5); Neutrophils Absolute Auto 7.8 K/mm3 (1.3-6.7); Neutrophils Percent Auto 71.4 % (45.5-73.1); Platelet Count Result 231 k/mm3 (150-375); Red Blood Count 2.98 M/mm3 (4.2-5.4); Red Cell Distribution Width 14.2 % (11.5-14.5); White Blood Count 10.9 K/mm3 (4.5-10.0)
[2023-09-29 13:21] LABS: Alanine Aminotransferase 15 U/L (6-35); Albumin Level 3.3 g/dL (3.5-5.1); Alkaline Phosphatase 122 U/L (38-126); Anion Gap 4 mmol/L (8-16); Aspartate Amino Transferase 24 U/L (14-36); Bilirubin,Total 0.6 mg/dL (0.2-1.3); Blood Urea Nitrogen 21 mg/dL (7-17); Calcium 9.8 mg/dL (8.4-10.2); Carbon Dioxide 36 mmol/L (22-30); Chloride 94 mmol/L (98-107); Estimated Glomerular Filt Rate 12; Glucose 90 mg/dL (65-110); Potassium 3.6 mmol/L (3.4-5.0); Sodium 134 mmol/L (137-145)
[2023-09-29 13:51] VITALS: BP 168/60; PULSE 70; RESP 18; O2SAT 96
== END 2023-09-29 14:34 | disposition short-term general hospital (02) ==
PROVIDERS: Emergency Provider Emergency Medicine
DX: S06.4XAA Epidural hemorrhage with loss of consciousness status unknown, initial encounter (principal); I12.0 Hypertensive chronic kidney disease with stage 5 chronic kidney disease or end stage renal disease; N18.6 End stage renal disease; Z86.73 Personal history of transient ischemic attack (TIA), and cerebral infarction without residual deficits; Z87.891 Personal history of nicotine dependence; X58.XXXA Exposure to other specified factors, initial encounter
CPT/HCPCS: 36415; 70450; 71101; 80053; 85025; 93005; 99291

== ENCOUNTER 2023-10-06 13:38 | Emergency (ER) | payer MEDICARE, SELFPAY ==
[2023-10-06] VITALS (29 sets, daily range): BP systolic 136–195; BP diastolic 49–101; PULSE 62–78; RESP 16–25; TEMP 36.6; O2SAT 94–100
--- NOTE | ~2023-10-06 | XR_ITS ---
EXAMINATION: XR chest 2V DATE: 10/06/2023 18:10 INDICATION: Transient alteration of awareness. TECHNIQUE: Frontal and lateral views of the chest were obtained. COMPARISON: Chest 2 views 09/04/2023, CT cervical spine 08/27/2023 FINDINGS: There is elevation of left hemidiaphragm. There is mild atelectasis in left lower lung zone . No pleural effusion or pneumothorax. The heart size is normal. IMPRESSION: 1. Persistent elevation of left hemidiaphragm with mild atelectasis in left lower lung zone. Reviewed, dictated and finalized at location E. GER PROCUREMENT IMPRESSION: 1. Persistent elevation of left hemidiaphragm with mild atelectasis in left low er lung zone.
--- NOTE | ~2023-10-06 | CT_ITS ---
EXAMINATION: CT brain wo con DATE: 10/06/2023 14:16 INDICATION: History of subdural hematomas. TECHNIQUE: Computed tomography (CT) of the head was performed without intravenous contrast. The dose- length product was 605.33 mGy-cm. Automated exposure control and iterative reconstruction technique w ere employed. COMPARISON: CT dated 09/29/2023 FINDINGS: No acute intracranial hemorrhage, infarction, mass or mass effect. No ventriculomegaly or m idline shift. Basilar cisterns are patent. Paranasal sinuses and mastoids are pneumatized. No depress ed skull fractures. There are scattered moderate periventricular and subcortical white matter changes , most likely related to small vessel ischemic disease (microangiopathy). Generalized atrophy. Parana taz sinuses and mastoids are pneumatized. No depressed skull fractures. IMPRESSION: 1. No acute intracranial abnormality. 2: Chronic age-related findings. Reviewed, dictated and finalized at location L. RVISOR PRODUCTION
--- NOTE | 2023-10-06 13:57 | PC.NURSE ---
Symptoms and hx reviewed with Dr. Alexandra Duenas. VO CT brain received.
--- NOTE | 2023-10-06 17:43 | ECG_ITS ---
Measurements Intervals [place] Rate: 67 P: 63 HI: 195 QRS: 31 QRSD: 96 T: 44 QT: 442 QTc: 470 Interpretive Statements SINUS RHYTHM COMPARED TO ECG 09/29/2023 12:13:50 NO SIGNIFICANT CHANGES Electronically Signed On 10-06-2023 19:21:29 BENEFITS ADMINISTRATOR by Coleen Cortez M.D.
--- NOTE | 2023-10-06 17:44 | ED.NEUROSD ---
HPI - Neuro Symptoms/Deficit General Chief Complaint: Neuro Symptoms/Deficit Stated Complaint: unresponsive at lunch per staff Time Seen by Provider: 10/06/23 18:07 Source: patient and EMS Mode of arrival: EMS Limitations: dementia History of Present Illness HPI Narrative: This is an 82-year-old female that presents to the emergency department from her nursing facility for an episode of unresponsiveness. Patient is now alert and oriented back to her baseline. She has no complaints. History limited due to her dementia. She cannot tell me about the events today. Related Data Home Medications Medication Instructions Recorded Confirmed alprazolam 0.25 mg tablet 0.25 mg PO HS PRN Anxiety 01/24/23 08/27/23 buspirone 5 mg tablet 5 mg PO TID anxiety 01/24/23 08/27/23 lisinopril 20 mg tablet 20 mg PO DAILY 01/24/23 08/27/23 escitalopram oxalate 5 mg tablet 5 mg PO DAILY 08/27/23 08/27/23 hydrochlorothiazide 12.5 mg capsule 12.5 mg PO DAILY 08/27/23 08/27/23 labetalol 200 mg tablet 300 mg PO BID 08/27/23 08/27/23 memantine 5 mg tablet 5 mg PO BID 08/27/23 08/27/23 sucroferric oxyhydroxide 500 mg 500 mg PO TID 08/27/23 08/27/23 chewable tablet (Velphoro) Allergies Allergy/AdvReac Type Severity Reaction Status Date / Time No Known Allergies Allergy Verified 09/04/23 10:59 Review of Systems Review of Systems: ROS unobtainable: Yes unobtainable due to medical condition PMFSH Past Medical History Medical History Anemia of chronic disease Cerebrovascular accident Closed displaced fracture of left femoral neck End-stage renal disease on hemodialysis Gout Hypertension Memory loss Surgical History Surgical History History of appendectomy History of cataract extraction History of cholecystectomy History of colonoscopy History of oophorectomy History of parathyroidectomy Family History Family History Father Family history of elevated blood lipids Hypertension Sibling Family history of elevated blood lipids Hypertension Cancer of jaw Mother Myocardial infarction Social History Social History Social History: Surrogate medical decision maker: Agnes Monroy and Stacy Sheppard, daughters. Code status: Full code. Smoking status: Former smoker Second hand tobacco smoke exposure: No Alcohol intake: current Substance use: never Lack of Transportation: No Lack of Food: Never True Current Housing: I Do Not Have Housing Concerned About Future Housing: No Difficulty Paying Gas/Electric Bills: No Difficulty Paying for Meds: No Currently Unemployed: No Education: Associate Degree Difficulty w/ Childcare or Family Care: No Additional living arrangements comments: . Has 2 children. Resides at [facility] since 09/01/23 Additional occupation/education comments: Retired. Spiritual care concerns: No Exam Narrative: GENERAL: Well-appearing, well-nourished, and in no acute distress. HEAD: Normocephalic, atraumatic. EYES: PERRLA and EOMI. ENT: Nares clear, no rhinorrhea or epistaxis. Mucous membranes moist. Oropharynx without tonsillar hypertrophy exudate or other lesions. NECK: Supple. No adenopathy or masses. No midline spinal tenderness CHEST: Clear to auscultation. No respiratory distress. No wheezes rales or rhonchi HEART: Regular rate and rhythm. No murmur heard. Normal peripheral pulses. EXTREMITIES: Normal range of motion. No edema or obvious deformity. Strength equal in bilateral upper and lower extremities(5/5) SKIN: Warm, dry, no rash. NEURO: No focal deficits. Alert and oriented x3. CN II-XII grossly intact PSYCH: Normal mood and affect Course Course Emergency Course: Patient's daughter was updated on her workup a
[2023-10-06 18:06] LABS: Basophils Percent Auto 0.7 % (0.2-1.2); Eosinophils Absolute Auto 0.1 K/mm3 (0-0.3); Hematocrit 28.4 % (37.0-47.0); Hemoglobin 8.6 g/dL (12.0-15.0); Immature Granulocyte Absolute 0.03 K/mm3 (0.00-0.031); Immature Granulocyte Percent A 0.5 % (0-0.5); Lymphocytes Absolute Auto 1.46 K/mm3 (0.9-3.2); Lymphocytes Percent Auto 24.3 % (18.3-44.2); Mean Corpuscular HGB Conc 30.3 g/dl (32-36); Mean Corpuscular Hemoglobin 29.3 pg (26-34); Mean Corpuscular Volume 96.6 fl (80-100); Mean Platelet Volume 8.6 fl (7.4-10.4); Monocytes Absolute Auto 0.8 K/mm3 (0.1-0.6); Monocytes Percent Auto 13.5 % (2.6-8.5); Neutrophils Absolute Auto 3.6 K/mm3 (1.3-6.7); Platelet Count Result 243 k/mm3 (150-375); Red Blood Count 2.94 M/mm3 (4.2-5.4); Red Cell Distribution Width 14.7 % (11.5-14.5)
[2023-10-06 18:16] LABS: Alanine Aminotransferase 21 U/L (6-35); Albumin Level 3.7 g/dL (3.5-5.1); Alkaline Phosphatase 141 U/L (38-126); Anion Gap 9 mmol/L (8-16); Aspartate Amino Transferase 30 U/L (14-36); Bilirubin,Total 0.7 mg/dL (0.2-1.3); Blood Urea Nitrogen 38 mg/dL (7-17); Calcium 9.9 mg/dL (8.4-10.2); Carbon Dioxide 34 mmol/L (22-30); Chloride 93 mmol/L (98-107); Estimated CRCL calculation 7 ml/min; Estimated Glomerular Filt Rate 9; Glucose 105 mg/dL (65-110); Potassium 4.1 mmol/L (3.4-5.0); Sodium 136 mmol/L (137-145)
--- NOTE | 2023-10-06 19:10 | PC.NURSE ---
Report received from GERA Coles. Pt resting quietly per cart at this time NAD. Axox3, unsure of why she is here. States that she was discharged from a hospital [facility] [place] today.
--- NOTE | 2023-10-06 20:15 | PC.NURSE ---
Pt and linens cleaned by tech. Pt had large BM and urinated soiling depends. Straight cath attempted. No urine at this time. Will reattempt.
[2023-10-06 21:12] LABS: Appearance Urine Turbid (Clear); Bacteria Urine 4+ /hpf; Bilirubin Urine Negative (Negative); Blood Urine 2+ (Negative); Color Urine Dark Yellow (Yellow); Glucose Urine UA Negative (Negative); Ketones Urine Negative (Negative); Leukocyte Esterase Ur 3+ LEU/UL (Negative); Need Manual Microscopic Reviewed; Nitrate Urine Negative (Negative); Non Pathogenic Casts >20; Protein Urine 3+ mg/dL (Negative); Specific Grav Ur 1.016 (1.001-1.035); Squamous Epithelial Cell Urine Many /hpf (Few); Urobilinogen Urine 0.2 mg/dL (<2.0); WBC Urine >100 /hpf
[2023-10-06 21:15] LABS: Add Urine Microscopic? YES
[2023-10-06] MEDS: amLODIPine BESYLATE 5 MG TABLET 10 MG PO (21:23)
== END 2023-10-07 00:07 ==
PROVIDERS: Emergency Provider Physician Assistant
DX: N39.0 Urinary tract infection, site not specified (principal); R40.4 Transient alteration of awareness; F03.90 Unspecified dementia, unspecified severity, without behavioral disturbance, psychotic disturbance, mood disturbance, and anxiety; I12.0 Hypertensive chronic kidney disease with stage 5 chronic kidney disease or end stage renal disease; N18.6 End stage renal disease; Z99.2 Dependence on renal dialysis; D63.1 Anemia in chronic kidney disease; M10.9 Gout, unspecified; Z86.73 Personal history of transient ischemic attack (TIA), and cerebral infarction without residual deficits; Z87.891 Personal history of nicotine dependence; Z98.49 Cataract extraction status, unspecified eye; Z90.49 Acquired absence of other specified parts of digestive tract; Z90.89 Acquired absence of other organs
CPT/HCPCS: 36415; 70450; 71046; 80053; 81001; 85025; 87086; 87088; 93005; 96365; 99284; A9270; J0696

== ENCOUNTER 2023-10-12 17:00 | Emergency (ER) | payer MEDICARE, SELFPAY ==
--- NOTE | ~2023-10-12 | CT_ITS ---
EXAMINATION: CT brain wo con DATE: 10/12/2023 19:21 INDICATION: fall . TECHNIQUE: Computed tomography (CT) of the head was performed without intravenous contrast. The mA wa s adjusted according to patient size. Iterative reconstruction technique was employed. The dose-lengt h product was 118.99 mGy-cm. COMPARISON: 10/06/2023. FINDINGS: No acute intracranial hemorrhage or extra-axial fluid collection. No hydrocephalus, mass, or herniation. No acute ischemic infarct. Unremarkable dural venous sinus attenuation. No acute osseous abnormality. The aerated spaces are clear. Moderate atrophy and chronic white matter change. Atherosclerotic intracranial calcification. Bilater al lens replacements. Minimal bilateral basal ganglia calcification. IMPRESSION: No acute intracranial process. Reviewed, dictated and finalized at location K. MILL OPERATOR CORE SAND
--- NOTE | ~2023-10-12 | CT_ITS ---
EXAMINATION: CT cervical spine wo con DATE: 10/12/2023 19:21 INDICATION: fall TECHNIQUE: Computed tomography (CT) of the cervical spine was performed without intravenous contrast. Automated exposure control and iterative reconstruction technique were employed. The dose-length pro duct was 118.99 mGy-cm. COMPARISON: 08/27/2023. FINDINGS: Vertebral Body Alignment: Intact. Stable retrolistheses at C3-4, C4-5, and C5-6. Craniocervical and atlantoaxial alignment: Moderate degenerative change. Alignment intact. Osseous structures/fracture: No evidence of a lytic or blastic process in the visualized spine. No e vidence of acute fracture. Mild chronic anterior wedge deformity at T1 Cervical soft tissues: The paraspinal soft tissues planes are maintained. Bilateral sub 1.5 cm thyroi d nodules, which require no additional workup. Degenerative changes: Multilevel moderate degenerative disc disease and severe facet arthropathy. Mul tilevel severe bilateral neural foraminal narrowing. No severe central canal narrowing. IMPRESSION: No acute fracture or traumatic malalignment in the cervical spine. Reviewed, dictated and finalized at location K. UTIVE CHAIRMAN
[2023-10-12 17:01] VITALS: BP 164/56; PULSE 77; RESP 16; TEMP 36.4; O2SAT 97
--- NOTE | 2023-10-12 19:03 | ED.FALL ---
HPI - Fall General Chief Complaint: Fall Stated Complaint: fall from wc Time Seen by Provider: 10/12/23 18:38 History of Present Illness HPI Narrative: Patient is an 82-year-old female presenting after a fall. Patient was in a transport van and she was not strapped into the chair. States that she fell from the chair during transport and struck her head. Did not lose consciousness. Complains of mild headache. No further complaints or injuries. Related Data Home Medications Medication Instructions Recorded Confirmed alprazolam 0.25 mg tablet 0.25 mg PO HS PRN Anxiety 01/24/23 10/11/23 buspirone 5 mg tablet 5 mg PO TID anxiety 01/24/23 10/11/23 lisinopril 20 mg tablet 20 mg PO DAILY 01/24/23 10/11/23 escitalopram oxalate 5 mg tablet 5 mg PO DAILY 08/27/23 10/11/23 hydrochlorothiazide 12.5 mg capsule 12.5 mg PO DAILY 08/27/23 10/11/23 labetalol 200 mg tablet 300 mg PO BID 08/27/23 10/11/23 memantine 5 mg tablet 5 mg PO BID 08/27/23 10/11/23 sucroferric oxyhydroxide 500 mg 500 mg PO TID 08/27/23 10/11/23 chewable tablet (Velphoro) Allergies Allergy/AdvReac Type Severity Reaction Status Date / Time No Known Allergies Allergy Verified 10/11/23 10:25 Review of Systems Review of Systems: All systems reviewed & are unremarkable except as noted in HPI and below PMFSH Past Medical History Medical History Anemia of chronic disease Cerebrovascular accident Closed displaced fracture of left femoral neck End-stage renal disease on hemodialysis Gout History of partial replacement of left hip joint using bipolar prosthesis Hypertension Memory loss Surgical History Surgical History History of appendectomy History of cataract extraction History of cholecystectomy History of colonoscopy History of oophorectomy History of parathyroidectomy Family History Family History Father Family history of elevated blood lipids Hypertension Sibling Family history of elevated blood lipids Hypertension Cancer of jaw Mother Myocardial infarction Social History Social History Social History: Surrogate medical decision maker: Agnes Monroy and Stacy Sheppard, daughters. Code status: Full code. Smoking status: Former smoker Second hand tobacco smoke exposure: No Alcohol intake: current Substance use: never Lack of Transportation: No Lack of Food: Never True Current Housing: I Do Not Have Housing Concerned About Future Housing: No Difficulty Paying Gas/Electric Bills: No Difficulty Paying for Meds: No Currently Unemployed: No Education: Associate Degree Difficulty w/ Childcare or Family Care: No Additional living arrangements comments: . Has 2 children. Resides at [facility] since 09/01/23 Additional occupation/education comments: Retired. Spiritual care concerns: No Exam Narrative: GENERAL: Elderly female lying in bed in no acute distress HEAD: Normocephalic, old appearing ecchymosis left forehead EYES: PERRLA and EOMI. ENT: no trauma appreciated NECK: Supple. no midline tenderness CHEST: No respiratory distress. HEART: Regular rate and rhythm ABDOMEN: Soft, nontender, nondistended EXTREMITIES: Normal range of motion. No edema. SKIN: Warm, dry NEURO: No focal deficits. Alert and oriented x3. PSYCH: Normal mood and affect. Course Vital Signs Vital signs: Vital Signs Temperature 97.6 F 10/12/23 17:01 Pulse Rate 77 10/12/23 17:01 Respiratory Rate 16 10/12/23 17:01 Blood Pressure 164/56 H 10/12/23 17:01 Pulse Oximetry 97 10/12/23 17:01 Temperature 97.6 F 10/12/23 17:01 Pulse Rate 87 10/12/23 20:04 Respiratory Rate 20 10/12/23 20:04 Blood Pressure 212/68 H 10/12/23 20:06 Pulse
[2023-10-12 20:04] VITALS: PULSE 87; RESP 20; O2SAT 97
[2023-10-12 20:06] VITALS: BP 212/68
[2023-10-12 21:06] VITALS: BP 193/68; PULSE 74; RESP 17
[2023-10-12 22:53] VITALS: BP 183/64; PULSE 75; RESP 20
[2023-10-12 23:05] VITALS: BP 178/59
== END 2023-10-12 23:42 ==
PROVIDERS: Emergency Provider Emergency Medicine
DX: I12.0 Hypertensive chronic kidney disease with stage 5 chronic kidney disease or end stage renal disease (principal); N18.6 End stage renal disease; D63.1 Anemia in chronic kidney disease; Z99.2 Dependence on renal dialysis; M10.9 Gout, unspecified; Z96.642 Presence of left artificial hip joint; Z86.73 Personal history of transient ischemic attack (TIA), and cerebral infarction without residual deficits; Z87.891 Personal history of nicotine dependence; Z98.49 Cataract extraction status, unspecified eye; Z90.49 Acquired absence of other specified parts of digestive tract; Z90.89 Acquired absence of other organs
CPT/HCPCS: 70450; 72125; 99284

== ENCOUNTER 2023-12-14 16:04 | Observation (INO) | payer MEDICARE, SELFPAY ==
[2023-12-14] VITALS (7 sets, daily range): BP systolic 185–211; BP diastolic 59–71; PULSE 63–75; RESP 16–28; TEMP 36.4–36.9; O2SAT 96–99
--- NOTE | ~2023-12-14 | CT_ITS ---
EXAMINATION: CT abdomen pelvis wo con DATE: 12/14/2023 17:44 INDICATION: Abdominal pain TECHNIQUE: Computed tomography (CT) of the abdomen and pelvis was performed without intravenous contr ast. Automated exposure control and iterative reconstruction technique were employed. The dose-length product was 374.98 mGy-cm. COMPARISON: 08/21/2021 FINDINGS: Elevation the left hemidiaphragm. There is atelectasis at the bilateral lung bases, left greater than right. Mild cardio likely. Atherosclerotic coronary artery calcific a biswas. No pericardial or pleura l effusion. Cholecystectomy clips the gallbladder fossa. Liver, spleen, pancreas, bilateral adrenal g lands are normal. There is mild right and mild to moderate left renal atrophy. 1 cm low-attenuation r ight renal cyst. No urolithiasis. There is a Quijano catheter within the bladder. The uterus is not lucas ntified and is either atrophic or has been surgically resected. Bowels are unremarkable with no abnor mal wall thickening or obstruction. No free intraperitoneal gas or fluid. No pathologically enlarged abdominal or pelvic lymphadenopathy. There is calcified atherosclerosis of the aorta and many of the other arteries. Moderate thoracic and lumbar spondylosis. Bipolar type left hip hemiarthroplasty. IMPRESSION: 1. No acute intra-abdominal/pelvic process. 2. Mild cardiomegaly. Reviewed, dictated and finalized at location A. FILLER
--- NOTE | ~2023-12-14 | XR_ITS ---
EXAMINATION: XR chest 1V portable DATE: 12/14/2023 16:42 INDICATION: Altered mental status. TECHNIQUE: A single frontal view of the chest was obtained. COMPARISON: Chest 2 views 10/06/2023, 09/04/2023 FINDINGS: There is chronic mild elevation of left hemidiaphragm. There is chronic scarring at left anaya ng base. No pleural effusion or pneumothorax. The heart size is normal. Surgical clips in the right u pper quadrant are likely from cholecystectomy. IMPRESSION: 1. Chronic scarring at left lung base. Reviewed, dictated and finalized at location A. SERVICES COORDINATOR
--- NOTE | ~2023-12-14 | CT_ITS ---
EXAMINATION: CT brain wo con DATE: 12/14/2023 16:31 INDICATION: Altered mental status. Recent intracranial hemorrhage 2 months prior. TECHNIQUE: Computed tomography (CT) of the head was performed without intravenous contrast. Sagittal and coronal reconstructions were performed. The mA was adjusted according to patient size. Iterative reconstruction technique was employed. The dose-length product was 605.33 mGy-cm. COMPARISON: head CT dated 10/12/2023 FINDINGS: No acute intracranial hemorrhage, acute infarction or abnormal extra axial fluid collection. There is moderate to severe scattered white matter hypoattenuation consistent with chronic small vessel ische flor disease. Symmetric prominence of the sulci and ventricles consistent with mild age-appropriate di ffuse cerebral volume loss. No mass/mass effect. Mild mucosal thickening the right frontoethmoidal re cess. The orbits and mastoid air cells are normal. IMPRESSION: 1. No acute intracranial process. 2. Age-related changes including mild diffuse volume loss and moderate to severe scattered white malia er hypoattenuation consistent with chronic small vessel ischemic disease. Reviewed, dictated and finalized at location A. M HEATING INSTALLER IMPRESSION: 1. No acute intracranial process. 2. Age-related changes including mild diffuse volume loss and moderate to sever e scattered white matter hypoattenuation consistent with chronic small vessel i schemic disease.
--- NOTE | 2023-12-14 16:09 | ECG_ITS ---
Measurements Intervals [place] Rate: 64 P: -31 DE: 164 QRS: 21 QRSD: 102 T: 37 QT: 474 QTc: 490 Interpretive Statements SINUS RHYTHM MINIMAL VOLTAGE CRITERIA FOR LVH, CONSIDER NORMAL VARIANT [MEETS CRITERIA IN ONE OF: R(aVL), S(V1), R(V5), R(V5/V6)+S(V1)] COMPARED TO ECG 10/06/2023 18:45:37 NO SIGNIFICANT CHANGES Electronically Signed On 12-15-2023 12:34:16 EMPLOYEE RELATIONS REPRESENTATIVE by Wilber Kumar M.D.
--- NOTE | 2023-12-14 16:45 | ED.AMS ---
HPI - Altered Mental Status General Chief Complaint: Altered Mental Status <Jenny Garcia PA-C - Last Filed: 12/14/23 19:48> Stated Complaint: AMS <Jenny Garcia PA-C - Last Filed: 12/14/23 19:48> Time Seen by Provider: 12/14/23 16:12 <Jenny Garcia PA-C - Last Filed: 12/14/23 19:48> Source: family, EMS and RN notes reviewed <Andrez Wright PA-C - Last Filed: 12/15/23 00:32> Mode of arrival: EMS <Andrez Wright PA-C - Last Filed: 12/15/23 00:32> Limitations: altered mental status <Andrez Wright PA-C - Last Filed: 12/15/23 00:32> History of Present Illness HPI narrative: 82-year-old female with history of ESRD on hemodialysis on Tuesday schedule reports via EMS from local dialysis center for altered mental status. Per EMS, the patient arrived to dialysis [facility]. She underwent all that 40 minutes of her dialysis when EMS was contacted the patient was transported to the ER. She was found to have an oxygen saturation of 88% on room air was placed on 2 L nasal cannula with saturations increased. She is A&O x1, stating her name is germaine which according to family is her nickname. The patient had a fall approximately 1 month ago was found have a brain bleed and was transferred to [place]. Patient is confused. She denies chest pain or shortness of breath when prompted, but she is endorsing abdominal pain and points to the right lower quadrant. Was able to get in contact with patient's daughter, Stacy, who states the patient lives at at [facility]. States she believes she has been altered for a few days and is normally a and O times 3-4 of a baseline and does have history of dementia. The daughter is concerned the patient has UTI. States when she was transferred to [place], she ended up not having a brain bleed and instead was found have a UTI at that time as well. [facility] contacted who states patient's last known well was 1030 this morning with a return to get her transferred to Dialysis Center. <Jenny Garcia PA-C - Last Filed: 12/14/23 19:48> Related Data Home Medications: Home Medications Medication Instructions Recorded Confirmed alprazolam 0.25 mg tablet 0.25 mg PO HS PRN Anxiety 01/24/23 12/14/23 buspirone 5 mg tablet 5 mg PO TID anxiety 01/24/23 12/14/23 escitalopram oxalate 5 mg tablet 5 mg PO DAILY 08/27/23 12/14/23 labetalol 200 mg tablet 300 mg PO BID 08/27/23 12/14/23 memantine 5 mg tablet 5 mg PO BID 08/27/23 12/14/23 sucroferric oxyhydroxide 500 mg 500 mg PO TID 08/27/23 12/14/23 chewable tablet (Velphoro) amlodipine 10 mg tablet 10 mg PO HS 12/14/23 12/14/23 losartan 50 mg tablet 50 mg PO DAILY 12/14/23 12/14/23 <Jenny Garcia PA-C - Last Filed: 12/14/23 19:48> Allergies/Adverse Reactions: Allergies Allergy/AdvReac Type Severity Reaction Status Date / Time No Known Allergies Allergy Verified 10/11/23 10:25 <Jenny Garcia PA-C - Last Filed: 12/14/23 19:48> Review of Systems Review of Systems: ROS unobtainable: Yes unobtainable due to mental status <Jenny Garcia PA-C - Last Filed: 12/14/23 19:48> [facility] Past Medical History Medical History: Medical History Anemia of chronic disease Cerebrovascular accident Closed displaced fracture of left femoral neck End-stage renal disease on hemodialysis Gout History of partial replacement of left hip joint using bipolar prosthesis Hypertension Memory loss <Jenny Garcia PA-C - Last Filed: 12/14/23 19:48> Surgical History Surgical History: Surgical History History of appendectomy History of cataract extraction History of cholecystectomy History of colonoscopy History of oophorectomy History of parathyroidectomy <Jenny Garcia PA-C - Last Filed: 12/14/23 19:48> Family History Family Histo
[2023-12-14 16:54] LABS: Alveolar/Arterial O2 Gradient 22.9 mmHg; Base Excess ABG 13.9 mEq/l (+/-2.0); Fractional Inspired Oxygen 21 %; HCO3 ABG 38.1 mEq/l (22.0-26.0); Oxygen Content ABG 16.7 %vol (16.0-22.0); Oxygen Saturation ABG 95.9 % (95.0-100.0); Oxyhemoglobin 94.1 % THb (90.0-100.0); PCO2 ABG 45.7 mmHg (35.0-45.0); PO2 ABG 72.1 mmHg (80.0-100.0); PO2 FiO2 Ratio Arterial Blood 3.43 %; Total Hemoglobin 12.6 g/dL (12.0-18.0)
[2023-12-14 16:55] LABS: Device ROOM AIR; Modified Allen's Test Pass; Site Drawn RIGHT RADIAL; pH ABG 7.539 (7.350-7.450)
[2023-12-14 16:56] LABS: Basophils Absolute Auto 0.1 K/mm3 (0.0-0.1); Eosinophils Absolute Auto 0.2 K/mm3 (0-0.3); Eosinophils Percent Auto 3.4 % (0-4.4); Hematocrit 39.8 % (37.0-47.0); Hemoglobin 12.3 g/dL (12.0-15.0); Immature Granulocyte Absolute 0.01 K/mm3 (0.00-0.031); Immature Granulocyte Percent A 0.2 % (0-0.5); Lymphocytes Absolute Auto 1.46 K/mm3 (0.9-3.2); Lymphocytes Percent Auto 29.5 % (18.3-44.2); Mean Corpuscular HGB Conc 30.9 g/dl (32-36); Mean Corpuscular Hemoglobin 28.7 pg (26-34); Mean Corpuscular Volume 92.8 fl (80-100); Mean Platelet Volume 8.8 fl (7.4-10.4); Monocytes Absolute Auto 0.6 K/mm3 (0.1-0.6); Monocytes Percent Auto 12.1 % (2.6-8.5); Neutrophils Absolute Auto 2.7 K/mm3 (1.3-6.7); Neutrophils Percent Auto 53.8 % (45.5-73.1); Platelet Count Result 157 k/mm3 (150-375); Red Blood Count 4.29 M/mm3 (4.2-5.4); Red Cell Distribution Width 13.2 % (11.5-14.5)
[2023-12-14 17:07] LABS: Acetaminophen < 10 ug/mL (10-30); Ethanol < 10 mg/dL (<10); INR 0.8; Lactic Acid Reflex 1.2 mmol/L (0.7-2.0); Prothrombin Time 11.3 Seconds (11.1-14.7); Salicylate < 1.0 mg/dL (2-20)
[2023-12-14 17:08] LABS: Partial Thromboplastin Time 31.7 SECONDS (22.3-36.8)
[2023-12-14 17:10] LABS: Alanine Aminotransferase 15 U/L (6-35); Alkaline Phosphatase 104 U/L (38-126); Aspartate Amino Transferase 28 U/L (14-36); Bilirubin,Total 0.7 mg/dL (0.2-1.3); Blood Urea Nitrogen 17 mg/dL (7-17); Calcium 9.9 mg/dL (8.4-10.2); Carbon Dioxide > 40 mmol/L (22-30); Chloride 89 mmol/L (98-107); Creatine Kinase 27 U/L (30-135); Estimated CRCL calculation 15 ml/min; Estimated Glomerular Filt Rate 21; Glucose 104 mg/dL (65-110); Potassium 3.2 mmol/L (3.4-5.0); Sodium 136 mmol/L (137-145)
[2023-12-14 17:16] LABS: Lipase 90 U/L (23-300)
[2023-12-14 17:19] LABS: Troponin I < 0.012 ng/mL (0.000-0.034)
[2023-12-14 18:16] LABS: Influenza A QL RT-PCR Negative (Negative); Influenza B QL RT-PCR Negative (Negative); RSV RNA, RT-PCR Negative (Negative); SARS-CoV-2 RNA PCR Negative (Negative)
[2023-12-14 18:55] LABS: Appearance Urine Turbid (Clear); Bacteria Urine 4+ /hpf; Bilirubin Urine Negative (Negative); Blood Urine 1+ (Negative); Color Urine Yellow (Yellow); Glucose Urine UA Negative (Negative); Ketones Urine Trace mg/dL (Negative); Leukocyte Esterase Ur 3+ LEU/UL (Negative); Need Manual Microscopic Reviewed; Nitrate Urine Negative (Negative); Non Pathogenic Casts >20; Protein Urine 3+ mg/dL (Negative); Specific Grav Ur 1.013 (1.001-1.035); Squamous Epithelial Cell Urine None seen /hpf (Few); Urobilinogen Urine 0.2 mg/dL (<2.0); WBC Urine >100 /hpf; pH Urine 8.5 (5.0-9.0)
[2023-12-14 18:58] LABS: Add Urine Microscopic? YES
[2023-12-14] MEDS: hydrALAZINE HCL 20 MG/ML VIAL 10 MG IV PUSH (19:04)
[2023-12-14] MEDS: SODIUM CHLORIDE 0.9% IV 1,000 ML 999 ML IV CONT (19:04)
[2023-12-14 19:49] LABS: Barbiturate Screen Urine Negative (Negative); Benzodiazepines Screen Urine Negative (Negative)
[2023-12-14 19:53] LABS: Cannabinoid Screen Urine Negative (Negative); Cocaine Screen Urine Negative (Negative); Methadone Screen Urine Negative (Negative); Opiate Screen Urine Negative (Negative); Phencyclidine Screen Urine Negative (Negative)
[2023-12-14 20:20] LABS: Amphetamine Screen Urine Negative (Negative)
--- NOTE | 2023-12-14 20:45 | PC.NURSE ---
This RN walked by rooms 2/3 and saw the patient on the floor at the foot of the bed. Pt was awake, sitting on the floor, leaning on left elbow. Side rails still up on bed, pt still hooked up to front desk monitor, BP cuff, and pulse oximiter. Called for assistance and went to pt's side. Pt was moving all extremities, looking around. Pt not answering questions, which has been normal for pt during visit. No visible injuries to pt. Pt assisted up with help, ambulated to stretcher. ROBB Wright at bedside examining pt. research mechanic notified, sugar house supervisor notified, family called. Pt shakes head no when asked if she is in pain or if she hurts anywhere. Sitter placed at bedside to ensure pt safety.
--- NOTE | 2023-12-14 23:39 | PC.NURSE ---
Orders from [facility] show that patient is on a mechanical soft diet with nectar thick liquids per ST recs after a MBS.
[2023-12-15] VITALS (7 sets, daily range): BP systolic 157–188; BP diastolic 65–67; PULSE 67–82; RESP 13–24; TEMP 36.2–36.8; O2SAT 97–99; BMI 22.6
[2023-12-15] MEDS: hydrALAZINE HCL 20 MG/ML VIAL 10 MG IV PUSH ×2 (00:05→15:19)
--- NOTE | 2023-12-15 07:50 | PM.IMHP ---
H&P: HPI History of Present Illness Date/Time: 12/15/23 07:50 Chief Complaint: altered mental status Narrative: This is an 82-year-old female patient with a history of end-stage renal disease on dialysis apparently due to uncontrolled hypertension who is admitted to the hospital for altered level of consciousness and urinary tract infection. Patient reportedly has not been acting normal for an unknown length of time with conflicting reports between family and [facility] documentation. Yesterday while patient was at dialysis session she was altered and her session ended up getting cut short by 40 minutes when EMS was called to take her to the hospital. Patient found to have purulence urine and treatment started for urinary tract infection. CT scan of the head was negative and normal appearing. Patient has had similar episodes in the past where UTI has caused her to have altered level consciousness requiring hospitalization. Blood pressure found to be significantly elevated and was improved with IV hydralazine. This morning patient will awaken and answer questions but seems somewhat confused and slow to respond this morning. Family not present. Review of medical records is the chief method of understanding HPI and ROS. Patient denies any pain or shortness of breath. She denies nausea or vomiting. She denies chills. Patient started on Rocephin in the emergency department which we will continue at this time. Nephrology will be consulted to manage dialysis schedule currently patient is on Tuesday schedule. Review of Systems Review of Systems: ROS unobtainable: Yes unobtainable due to mental status PMFSH Past Medical History Medical History Anemia of chronic disease Cerebrovascular accident Closed displaced fracture of left femoral neck End-stage renal disease on hemodialysis Gout History of partial replacement of left hip joint using bipolar prosthesis Hypertension Memory loss Surgical History Surgical History History of appendectomy History of cataract extraction History of cholecystectomy History of colonoscopy History of oophorectomy History of parathyroidectomy Family History Family History Father Family history of elevated blood lipids Hypertension Sibling Family history of elevated blood lipids Hypertension Cancer of jaw Mother Myocardial infarction Social History Social History Social History: Surrogate medical decision maker: Agnes Monroy and Stacy Sheppard, daughters. Code status: Full code. Smoking status: Unknown if ever smoked Second hand tobacco smoke exposure: No Alcohol intake: unknown Substance use: unknown Lack of Transportation: No Lack of Food: Never True Current Housing: I Do Not Have Housing Concerned About Future Housing: No Difficulty Paying Gas/Electric Bills: No Difficulty Paying for Meds: No Currently Unemployed: No Education: Associate Degree Difficulty w/ Childcare or Family Care: No Additional living arrangements comments: . Has 2 children. Resides at [facility] since 09/01/23 Additional occupation/education comments: Retired. Spiritual care concerns: No Meds Home Medications and Allergies Home Medications Medication Instructions Recorded Confirmed Type alprazolam 0.25 mg tablet 0.25 mg PO HS PRN Anxiety 01/24/23 12/14/23 History buspirone 5 mg tablet 5 mg PO TID anxiety 01/24/23 12/14/23 History escitalopram oxalate 5 mg tablet 5 mg PO DAILY 08/27/23 12/14/23 History labetalol 200 mg tablet 300 mg PO BID 08/27/23 12/14/23 History memantine 5 mg tablet 5 mg PO BID 08/27/23 12/14/23 History sucroferric oxyhydroxide 500 mg 500 mg PO TID 08/27/23 12/14/23 History chewa
[2023-12-15 09:50] LABS: Basophils Absolute Auto 0.1 K/mm3 (0.0-0.1); Basophils Percent Auto 1.5 % (0.2-1.2); Eosinophils Absolute Auto 0.2 K/mm3 (0-0.3); Eosinophils Percent Auto 3.7 % (0-4.4); Hematocrit 37.8 % (37.0-47.0); Hemoglobin 11.8 g/dL (12.0-15.0); Lymphocytes Absolute Auto 1.22 K/mm3 (0.9-3.2); Lymphocytes Percent Auto 25.3 % (18.3-44.2); Mean Corpuscular HGB Conc 31.2 g/dl (32-36); Mean Corpuscular Hemoglobin 28.9 pg (26-34); Mean Corpuscular Volume 92.6 fl (80-100); Mean Platelet Volume 9.4 fl (7.4-10.4); Monocytes Absolute Auto 0.6 K/mm3 (0.1-0.6); Monocytes Percent Auto 12.7 % (2.6-8.5); Neutrophils Absolute Auto 2.7 K/mm3 (1.3-6.7); Neutrophils Percent Auto 56.8 % (45.5-73.1); Platelet Count Result 168 k/mm3 (150-375); Red Blood Count 4.08 M/mm3 (4.2-5.4); Red Cell Distribution Width 13.3 % (11.5-14.5); White Blood Count 4.8 K/mm3 (4.5-10.0)
[2023-12-15 10:02] LABS: Albumin Level 3.6 g/dL (3.5-5.1); Anion Gap 5 mmol/L (8-16); Blood Urea Nitrogen 26 mg/dL (7-17); Carbon Dioxide 35 mmol/L (22-30); Chloride 95 mmol/L (98-107); Estimated CRCL calculation 12 ml/min; Estimated Glomerular Filt Rate 16; Glucose 106 mg/dL (65-110); Magnesium 2.2 mg/dL (1.6-2.3); Phosphorus 3.9 mg/dL (2.5-4.5); Potassium 3.6 mmol/L (3.4-5.0); Sodium 135 mmol/L (137-145)
[2023-12-15] MEDS: MEMANTINE 5 MG TABLET PO ×2 (10:12→20:22)
[2023-12-15] MEDS: LOSARTAN POTASSIUM 50 MG TABLET PO (10:12)
[2023-12-15] MEDS: ESCITALOPRAM OXALATE 5 MG TABLET PO (10:12)
--- NOTE | 2023-12-15 12:20 | PM.CNNEP ---
Assessment and Plan Assessment and plan (1) End stage renal disease: Code(s): N18.6 - End stage renal disease Status: Chronic Assessment and Plan: HD tomorrow continue Tuesday/Tuesday/Tuesday outpatient dialysis schedule follow electrolytes, volume status, and clearance (2) Altered mental status: Code(s): R41.82 - Altered mental status, unspecified Status: Acute Assessment and Plan: possibly secondary to UTI elevated BP readings contributing factor(?) CT of head negative consider further imaging if persists follow culture data (3) UTI (urinary tract infection): Qualifiers: Hematuria presence: with hematuria Urinary tract infection type: acute cystitis Qualified Code(s): N30.01 - Acute cystitis with hematuria Code(s): N39.0 - Urinary tract infection, site not specified Status: Acute Assessment and Plan: suggestive by admission UA on antibiotics follow culture data supportive therapy (4) Hypertension: Code(s): I10 - Essential (primary) hypertension Status: Chronic Assessment and Plan: can fluctuate to extremes depending mentation, was she taking her BP medications? resumed home medications follow trend of hemodynamics. (5) Anemia: Code(s): D64.9 - Anemia, unspecified Status: Chronic Assessment and Plan: related to ESRD Epogen with HD once Hgb <10 follow trend of H/H I will continue to follow the patient with you while she remains hospitalized make further recommendations as needed. Thank you for allowing me to participate in the care of this patient. History of Present Illness Reason for Consult Consult date: 12/15/23 Reason for consult: end stage renal disease Chief Complaint Chief complaint: Altered Mental Status,UTI History of Present Illness Narrative: Most of the information I obtained is from review of the electronic medical record, discussion with the ER provider in the emergency room yesterdayfternoon, as well as her outpatient dialysis center as it is difficult to get a full and complete history from the patient due to her altered mentation. The patient is 82-year-old female with a past medical history as outlined below who presented to [facility] Emergency Room from her outpatient dialysis unit for altered mental status. The patient presented to her outpatient dialysis unit for her regular scheduled dialysis treatment yesterday. the dialysis nursing staff noted the patient was somewhat more sleepy /lethargic than her usual self but she did awaken with stimulation. She was subsequently initiated on her dialysis treatment but it seemed that her mentation and worsened as the treatment went on. Eventually, there came a point where she was not very responsive at all despite significant stimulation and hence her dialysis treatment was ended approximately 40 minutes early and EMS was called . She was subsequently taken to [facility] Emergency Room for further assessment Workup and evaluation emergency room demonstrated the patient to be hypertensive and somewhat slow to respond despite questioning and stimulation. The patient is normally alert and oriented x3 although she does have some underlying dementia at baseline. I am not entirely sure/ clear how long the patient was altered prior to her presentation to [facility] ER. skilled nursing records indicate that she was at her baseline prior to leaving for her dialysis treatment but as already mentioned above, the dialysis nursing staff noted on her presentation to the outpatient dialysis unit that she was already altered. Routine blood test demonstrated labs consistent with her known history of end-stage renal disease and her urinalysis was highly suggestive of urinary tract infection. A CT scan of her head demonstrated no acute intracranial process. She had no other acute complaints with regard to chest pa
[2023-12-15] MEDS: amLODIPine BESYLATE 5 MG TABLET 10 MG PO (20:22)
[2023-12-15] MEDS: LABETALOL HCL 100 MG TABLET 300 MG PO (20:23)
[2023-12-16] VITALS (20 sets, daily range): BP systolic 128–193; BP diastolic 53–80; PULSE 67–86; RESP 14–18; TEMP 35.4–37; O2SAT 96–100
[2023-12-16 06:45] LABS: Basophils Percent Auto 0.7 % (0.2-1.2); Eosinophils Absolute Auto 0.6 K/mm3 (0-0.3); Eosinophils Percent Auto 11.3 % (0-4.4); Hematocrit 36.4 % (37.0-47.0); Hemoglobin 11.2 g/dL (12.0-15.0); Immature Granulocyte Absolute 0.01 K/mm3 (0.00-0.031); Immature Granulocyte Percent A 0.2 % (0-0.5); Lymphocytes Absolute Auto 1.41 K/mm3 (0.9-3.2); Lymphocytes Percent Auto 26.1 % (18.3-44.2); Mean Corpuscular HGB Conc 30.8 g/dl (32-36); Mean Corpuscular Hemoglobin 28.4 pg (26-34); Mean Corpuscular Volume 92.4 fl (80-100); Mean Platelet Volume 9.4 fl (7.4-10.4); Monocytes Absolute Auto 0.6 K/mm3 (0.1-0.6); Monocytes Percent Auto 11.3 % (2.6-8.5); Neutrophils Absolute Auto 2.7 K/mm3 (1.3-6.7); Neutrophils Percent Auto 50.4 % (45.5-73.1); Platelet Count Result 176 k/mm3 (150-375); Red Blood Count 3.94 M/mm3 (4.2-5.4); Red Cell Distribution Width 13.4 % (11.5-14.5); White Blood Count 5.4 K/mm3 (4.5-10.0)
[2023-12-16 06:55] LABS: Albumin Level 3.7 g/dL (3.5-5.1); Anion Gap 8 mmol/L (8-16); Blood Urea Nitrogen 36 mg/dL (7-17); Calcium 10.1 mg/dL (8.4-10.2); Carbon Dioxide 33 mmol/L (22-30); Chloride 96 mmol/L (98-107); Estimated CRCL calculation 8 ml/min; Estimated Glomerular Filt Rate 10; Glucose 91 mg/dL (65-110); Magnesium 2.3 mg/dL (1.6-2.3); Phosphorus 4.6 mg/dL (2.5-4.5); Potassium 3.2 mmol/L (3.4-5.0); Sodium 137 mmol/L (137-145)
--- NOTE | 2023-12-16 07:36 | P.PNNP_ITS ---
Progress Note: A&P Assessment and Plan (1) End stage renal disease: Code(s): N18.6 - End stage renal disease Status: Chronic Assessment and Plan: * HD will be done today. * continue Tuesday/Tuesday/Tuesday outpatient dialysis schedule * Volume status looks okay. * Her blood pressure is high. * Will remove some fluid with dialysis. * potassium doing okay. (2) Altered mental status: Code(s): R41.82 - Altered mental status, unspecified Status: Acute Assessment and Plan: * possibly secondary to UTI * elevated BP readings contributing factor(?) * CT of head negative * consider further imaging if persists * Still a bit confused. * The patient has underlying dementia. (3) UTI (urinary tract infection): Qualifiers: Hematuria presence: with hematuria Urinary tract infection type: acute cystitis Qualified Code(s): N30.01 - Acute cystitis with hematuria Code(s): N39.0 - Urinary tract infection, site not specified Status: Acute Assessment and Plan: * suggestive by admission UA * on Ceftriaxone * urine culture negative * the patient receive antibiotics before admission? * supportive therapy (4) Hypertension: Code(s): I10 - Essential (primary) hypertension Status: Chronic Assessment and Plan: * can fluctuate to extremes * Blood pressure is still high. * Will remove a little fluid on dialysis today. * She is on amlodipine 10, losartan 50, labetalol 300. * Will increase losartan to 100. Will dose at supper time because the dialyzes off * follow trend of hemodynamics. (5) Anemia: Code(s): D64.9 - Anemia, unspecified Status: Chronic Assessment and Plan: * related to ESRD * too high for EPO today. Subjective Date/time seen: 12/16/23 07:36 Interval history: Patient is resting comfortably in bed. She is due for dialysis today Review of Systems Cardiovascular: Cardiovascular: Reports no additional cardiovascular c omplaints Respiratory: Respiratory: Reports no additional respiratory complaints Gastrointestinal: Gastrointestinal: Reports no additional gastrointestinal complaints Genitourinary: Genitourinary: Reports no additional female genitourinary complaints Exam Narrative: WDWN in NAD skin no rash head ncat lungs clear cor reg no rub abd BS+ nontender and soft ext no edema. Objective Data Vital Signs Vital Signs: Vital Signs - 24 hr 12/15/23 14:00 12/15/23 20:23 12/15/23 21:32 Temperature 98.3 F 98.1 F Pulse Rate 76 80 82 Respiratory Rate 24 H 13 Blood Pressure 188/67 H 165/66 H Pulse Oximetry 97 99 12/16/23 05:59 Temperature 97.2 F L Pulse Rate 71 Respiratory Rate 14 Blood Pressure 180/58 H Pulse Oximetry 98 Intake/Output Intake/Output: Intake & Output 12/13/23 12/14/23 12/15/23 12/16/23 23:59 23:59 23:59 23:59 Intake Total 1050 440 500 Balance 1050 440 500 Meds/Results Medications: Active Medications Generic Name Dose Route Start Last Admin Trade Name Freq PRN Reason Stop Dose Admin
--- NOTE | 2023-12-16 07:36 | PM.PNNEP ---
Progress Note: A&P Assessment and Plan (1) End stage renal disease: Code(s): N18.6 - End stage renal disease Status: Chronic Assessment and Plan: HD will be done today. continue Tuesday/Tuesday/Tuesday outpatient dialysis schedule Volume status looks okay. Her blood pressure is high. Will remove some fluid with dialysis. potassium doing okay. (2) Altered mental status: Code(s): R41.82 - Altered mental status, unspecified Status: Acute Assessment and Plan: possibly secondary to UTI elevated BP readings contributing factor(?) CT of head negative consider further imaging if persists Still a bit confused. The patient has underlying dementia. (3) UTI (urinary tract infection): Qualifiers: Hematuria presence: with hematuria Urinary tract infection type: acute cystitis Qualified Code(s): N30.01 - Acute cystitis with hematuria Code(s): N39.0 - Urinary tract infection, site not specified Status: Acute Assessment and Plan: suggestive by admission UA on Ceftriaxone urine culture negative the patient receive antibiotics before admission? supportive therapy (4) Hypertension: Code(s): I10 - Essential (primary) hypertension Status: Chronic Assessment and Plan: can fluctuate to extremes Blood pressure is still high. Will remove a little fluid on dialysis today. She is on amlodipine 10, losartan 50, labetalol 300. Will increase losartan to 100. Will dose at supper time because the dialyzes off follow trend of hemodynamics. (5) Anemia: Code(s): D64.9 - Anemia, unspecified Status: Chronic Assessment and Plan: related to ESRD too high for EPO today. Subjective Date/time seen: 12/16/23 07:36 Interval history: Patient is resting comfortably in bed. She is due for dialysis today Review of Systems Cardiovascular: Cardiovascular: Reports no additional cardiovascular complaints Respiratory: Respiratory: Reports no additional respiratory complaints Gastrointestinal: Gastrointestinal: Reports no additional gastrointestinal complaints Genitourinary: Genitourinary: Reports no additional female genitourinary complaints Exam Narrative: WDWN in NAD skin no rash head ncat lungs clear cor reg no rub abd BS+ nontender and soft ext no edema. Objective Data Vital Signs Vital Signs: Vital Signs - 24 hr 12/15/23 14:00 12/15/23 20:23 12/15/23 21:32 Temperature 98.3 F 98.1 F Pulse Rate 76 80 82 Respiratory Rate 24 H 13 Blood Pressure 188/67 H 165/66 H Pulse Oximetry 97 99 12/16/23 05:59 Temperature 97.2 F L Pulse Rate 71 Respiratory Rate 14 Blood Pressure 180/58 H Pulse Oximetry 98 Intake/Output Intake/Output: Intake & Output 12/13/23 12/14/23 12/15/23 12/16/23 23:59 23:59 23:59 23:59 Intake Total 1050 440 500 Balance 1050 440 500 Meds/Results Medications: Active Medications Generic Name Dose Route Start Last Admin Trade Name Freq PRN Reason Stop Dose Admin Acetaminophen 650 mg 12/15/23 09:16 Acetaminophen 325 Mg Tablet PO Q4H PRN Pain rated 1-6 or Fever Amlodipine Besylate 10 mg 12/15/23 21:00 12/15/23 20:22 Amlodipine Besylate 5 Mg Tablet PO 10 mg HS RENAE Administration Buspirone HCl 5 mg 12/15/23 09:10 Buspirone Hcl 5 Mg Tablet PO TID PRN anxiety Escitalopram Oxalate 5 mg 12/15/23 09:15 12/15/23 10:12 Escitalopram Oxalate 5 Mg Tablet PO 5 mg DAILY RENAE Administration Hydralazine HCl 10 mg 12/14/23 20:09 12/15/23 15:19 Hydralazine Hcl 20 Mg/Ml Vial IV PUSH 10 mg Q4H PRN Administration SBP greater than 180 Hydromorphone HCl 0.5 mg 12/14/23 20:08 Hydromorphone Hcl Inj (*Crx) 1 Mg/Ml Syr IV PUSH Q4H PRN Pain Rated 7-10 Ceftriaxone Sodium 1 gm in 50 mls @ 100 mls/hr 12/15/23 20:00 12/15/23 20:24 Rocephin 1 Gm/Ns 50
[2023-12-16] MEDS: EPOETIN ALFA-EPBX 4,000 UNITS/ML VIAL 4000 UNITS IV PUSH (10:39)
--- NOTE | 2023-12-16 11:52 | PM.IMPN ---
Subjective Date/time seen: 12/16/23 11:52 Objective Data Vital Signs Vital Signs: Vital Signs - 24 hr 12/15/23 14:00 12/15/23 20:23 12/15/23 21:32 Temperature 36.8 C 36.7 C Pulse Rate 76 80 82 Respiratory Rate 24 H 13 Blood Pressure 188/67 H 165/66 H Pulse Oximetry 97 99 Oxygen Delivery 12/16/23 05:59 12/16/23 08:02 12/16/23 08:05 Temperature 36.2 C L 36.8 C Pulse Rate 71 75 Respiratory Rate 14 18 Blood Pressure 180/58 H 193/80 H Pulse Oximetry 98 Oxygen Delivery Room Air 12/16/23 08:32 12/16/23 08:45 12/16/23 09:00 Temperature Pulse Rate 69 73 68 Respiratory Rate Blood Pressure 176/75 H 184/76 H 173/72 H Pulse Oximetry Oxygen Delivery Intake/Output Intake/Output: Intake & Output 12/13/23 12/14/23 12/15/23 12/16/23 23:59 23:59 23:59 23:59 Intake Total 1050 440 500 Balance 1050 440 500 Meds/Results Medications: Active Medications Generic Name Dose Route Start Last Admin Trade Name Freq PRN Reason Stop Dose Admin Acetaminophen 650 mg 12/15/23 09:16 Acetaminophen 325 Mg Tablet PO Q4H PRN Pain rated 1-6 or Fever Amlodipine Besylate 10 mg 12/15/23 21:00 12/15/23 20:22 Amlodipine Besylate 5 Mg Tablet PO 10 mg HS RENAE Administration Buspirone HCl 5 mg 12/15/23 09:10 Buspirone Hcl 5 Mg Tablet PO TID PRN anxiety Escitalopram Oxalate 5 mg 12/15/23 09:15 12/15/23 10:12 Escitalopram Oxalate 5 Mg Tablet PO 5 mg DAILY RENAE Administration Hydralazine HCl 10 mg 12/14/23 20:09 12/15/23 15:19 Hydralazine Hcl 20 Mg/Ml Vial IV PUSH 10 mg Q4H PRN Administration SBP greater than 180 Hydromorphone HCl 0.5 mg 12/14/23 20:08 Hydromorphone Hcl Inj (*Crx) 1 Mg/Ml Syr IV PUSH Q4H PRN Pain Rated 7-10 Ceftriaxone Sodium 1 gm in 50 mls @ 100 mls/hr 12/15/23 20:00 12/15/23 20:24 Rocephin 1 Gm/Ns 50 Ml IVPB 100 mls/hr Q24H RENAE Administration Albumin Human 50 mls @ 999 mls/hr 12/16/23 05:53 Albutein IVPB 01/15/24 05:52 Q10M PRN HYPOTENSION Labetalol HCl 300 mg 12/15/23 21:00 12/15/23 20:23 Labetalol Hcl 100 Mg Tablet PO 300 mg Q12HR RENAE Administration Losartan Potassium 100 mg 12/16/23 18:00 Losartan Potassium 100 Mg Tablet PO 1800 RENAE Memantine 5 mg 12/15/23 10:00 12/15/23 20:22 Memantine 5 Mg Tablet PO 5 mg Q12HR RENAE Administration Miscellaneous Information 1 each 12/15/23 00:01 Sucroferric Oxyhydroxide [Velphoro] 500 Mg Tablet,Chewable Nonformulary. Can Patient Use F XX 01/14/24 00:00 CLARIFY RENAE Non-Formulary Medication 500 mg 12/15/23 13:00 Sucroferric Oxyhydroxide [Velphoro] PO 01/14/24 12:59 TID RENAE Ondansetron HCl 4 mg 12/14/23 20:08 Ondansetron Inj 4 Mg/2 Ml Vial IV PUSH Q4H PRN Nausea Radiology Results: ITS Impressions Head CT 12/14/23 16:32 IMPRESSION: 1. No acute intracranial process. 2. Age-related changes including mild diffuse volume loss and moderate to severe scattered white matter hypoattenuation consistent with chronic small vessel ischemic disease. Chest X-Ray 12/14/23 16:45 IMPRESSION: 1. Chronic scarring at left lung base. Abdomen/Pelvis CT 12/14/23 18:12 IMPRESSION: 1. No acute intra-abdominal/pelvic process. 2. Mild cardiomegaly. Labs Labs: Laboratory Results - last 24 hr 12/16/23 06:08 WBC 5.4 RBC 3.94 L Hgb 11.2 L Hct 36.4 L MCV 92.4 MCH 28.4 MCHC 30.8 L RDW 13.4 Plt Count 176 MPV 9.4 Immature Gran % (Auto) 0.2 Neut % (Auto) 50.4 Lymph % (Auto) 26.1 [place] % (Auto) 11.3 H Eos % (Auto) 11.3 H Baso % (Auto) 0.7 Lymph # (Auto) 1.41 [place] # (Auto) 0.6 Eos # (Auto) 0.6 H Baso # (Auto) 0.0 Abs Immat Gran (auto) 0.01 Absolute Neuts (auto) 2.7 Absolute Nucleated RBC 0.0 Nucleated RBC % 0.0 Sodium 137 Potassium 3.2 L Chloride 96 L Carbon Dioxide 33 H Anion Gap 8 BUN 36 H D Creatinine
[2023-12-16 12:03] LABS: Glucose Point of Care 81 mg/dl (65-105)
[2023-12-16 13:20] LABS: Hepatitis B Surface Antigen Negative (Negative)
[2023-12-16] MEDS: LABETALOL HCL 100 MG TABLET 300 MG PO ×2 (13:20→20:57)
[2023-12-16] MEDS: ESCITALOPRAM OXALATE 5 MG TABLET PO (13:20)
[2023-12-16] MEDS: MEMANTINE 5 MG TABLET PO ×2 (13:20→20:57)
--- NOTE | 2023-12-16 15:35 | PM.DS ---
DS: Admitting Diagnosis Discharge Date 12/16/2023 Admitting Diagnosis UTI, ESRD on HD, metabolic alkalosis, Altered Mental Status, Uncontrolled hypertension DS: Discharge Diagnosis Discharge Diagnosis (1) UTI (urinary tract infection): Qualifiers: Hematuria presence: without hematuria Urinary tract infection type: acute cystitis Qualified Code(s): N30.00 - Acute cystitis without hematuria Code(s): N39.0 - Urinary tract infection, site not specified Status: Acute (2) ESRD on hemodialysis: Code(s): N18.6 - End stage renal disease; Z99.2 - Dependence on renal dialysis Status: Acute (3) Alkalosis, metabolic: Code(s): E87.3 - Alkalosis Status: Acute (4) Altered mental status: Code(s): R41.82 - Altered mental status, unspecified Status: Acute (5) Uncontrolled hypertension: Code(s): I10 - Essential (primary) hypertension Status: Chronic DS: Summary Hospital Course Hospital Course: Patient was sent to the emergency department due to altered mental status. Her dialysis session had been cut short due to decreased mental status. Patient has a history of altered mental status with urinary tract infections. Urinalysis obtained in the emergency department was purulent and patient was started on IV Rocephin. Her mental status improved significantly and is back at baseline. She underwent hemodialysis this morning and stable for discharge back to nursing facility. Urine culture was no growth however patient improved significantly on Rocephin indicating that she should continue treatment for UTI. Prior pathogen was noted to be E coli. Prescription for cefdinir 300 mg to be taken once on 12/18 AM then again on 12/19 after dialysis, 12/21 after dialysis and 12/23 after dialysis. On discharge will discontinue alprazolam as that may have contributed to her altered mental status. Status at Discharge Cognitive/behavioral status at discharge: awake, alert, confused per baseline dementia Functional status at discharge: uses cane/walker Overall status at discharge: patient is progressing back to baseline Time Spent with Patient Time attestation: Total time spent providing and/or coordinating discharge services: 32 minutes Time spent: Greater than 30 minutes Exam Narrative: GENERAL: Awake, alert, confused HEAD: Normocephalic, atraumatic. ENT:? Mucous membranes dry. CHEST: Clear to auscultation.? No respiratory distress. HEART: Regular rate and rhythm. ?Normal peripheral pulses. ABDOMEN: Soft, nontender, nondistended. EXTREMITIES: Normal range of motion. No peripheral edema. SKIN: Warm dry normal color NEURO: Awake, alert, confused. Moves all extremities well PSYCH: Normal mood and affect DS: Data Data Completed and Pending Completed studies during hospitalization: CXR, abdomen/pelvis CT, head CT Labs on day of discharge: Labs from last 24 hours 12/16/23 12/16/23 12:01 06:08 WBC 5.4 RBC 3.94 L Hgb 11.2 L Hct 36.4 L MCV 92.4 MCH 28.4 MCHC 30.8 L RDW 13.4 Plt Count 176 MPV 9.4 Immature Gran % (Auto) 0.2 Neut % (Auto) 50.4 Lymph % (Auto) 26.1 [place] % (Auto) 11.3 H Eos % (Auto) 11.3 H Baso % (Auto) 0.7 Lymph # (Auto) 1.41 [place] # (Auto) 0.6 Eos # (Auto) 0.6 H Baso # (Auto) 0.0 Abs Immat Gran (auto) 0.01 Absolute Neuts (auto) 2.7 Absolute Nucleated RBC 0.0 Nucleated RBC % 0.0 Sodium 137 Potassium 3.2 L Chloride 96 L Carbon Dioxide 33 H Anion Gap 8 BUN 36 H D Creatinine 4.40 H Estim Creat Clear Calc 8 Estimated GFR 10 L Glucose 91 POC Capillary Glucose 81 Calcium 10.1 Phosphorus 4.6 H Magnesium 2.3 Albumin 3.7 Hep Bs Antigen Negative Preliminary micro results at discharge 12/14/23 19:06 Blood Culture - Preliminary Blood 12/14/23 19:06 Blood Culture - Preliminary Blood Procedures/Treatments: Dialysis today to stay on schedule
--- NOTE | 2023-12-16 18:50 | PC.NURSE ---
Pt went to dialysis this AM. Pt had 1496 mL removed. Pt reported some nausea and dizziness during dialysis. Dialysis was stopped and pt was returned to unit. Pt has been up and alert since coming back to unit. Pt ate lunch and dinner. Pt report was called to [place]. Pt will transfer by ambulance to correction. Pt paperwork is filled out and ready for transport. Pt IV is in place, assembler 1st shift will be made aware to remove before leaving. Will continue to monitor pt.
[2023-12-16] MEDS: amLODIPine BESYLATE 5 MG TABLET 10 MG PO (20:58)
== END 2023-12-16 22:35 ==
LOC: ANHED 20:13 → ANH3MEDSUR 22:29
PROVIDERS: Emergency Medicine; Internal Medicine Nephrology; Nurse Practitioner; Admitting Provider Internal Medicine; Emergency Provider Physician Assistant; PCP Hospitalist; Visit Provider Internal Medicine
DX: N30.00 Acute cystitis without hematuria (principal); E87.3 Alkalosis; E87.8 Other disorders of electrolyte and fluid balance, not elsewhere classified; I16.0 Hypertensive urgency; R41.82 Altered mental status, unspecified; I12.0 Hypertensive chronic kidney disease with stage 5 chronic kidney disease or end stage renal disease; N18.6 End stage renal disease; Z99.2 Dependence on renal dialysis; D63.1 Anemia in chronic kidney disease; M10.9 Gout, unspecified; Z86.73 Personal history of transient ischemic attack (TIA), and cerebral infarction without residual deficits; Z87.891 Personal history of nicotine dependence; Z20.822 Contact with and (suspected) exposure to COVID-19; Z79.899 Other long term (current) drug therapy
CPT/HCPCS: 36415; 36600; 70450; 71045; 74176; 80053; 80069; 80307; 81001; 82550; 82805; 82948; 83605; 83690; 83735; 84443; 84484; 85025; 85610; 85730; 87040; 87086; 87340; 87637; 93005; 96361; 96365; 96375; 96376; 99285; A9270; G0257; G0378; J0360; J0696; J1644; J7030; P9047; Q5105

== ENCOUNTER 2023-12-19 07:37 | Emergency (ER) | payer MEDICARE, SELFPAY ==
[2023-12-19] VITALS (18 sets, daily range): BP systolic 159–192; BP diastolic 55–67; PULSE 56–61; RESP 16–20; TEMP 36.4–36.6; O2SAT 96–100
--- NOTE | ~2023-12-19 | XR_ITS ---
Clinical Indication: Chest pain PA and lateral views of the chest: Comparison: 12/14/2023 Findings: Probable minimal left pleural effusion. Right lung clear.. Cardiomediastinal silhouette is within normal limits. Bones and soft tissues are unremarkable. Impression: Probable minimal left pleural effusion. Reviewed, dictated and finalized at location . KE CLINICIAN Impression: Probable minimal left pleural effusion.
--- NOTE | ~2023-12-19 | CT_ITS ---
EXAMINATION: CT brain wo con INDICATION: Headache COMPARISON: None TECHNIQUE: Standard unenhanced head CT. The dose-length product (DLP) was 605.33 mGy-cm. The mA was a djusted according to patient size. Iterative reconstruction technique was employed. FINDINGS: No acute intraparenchymal hemorrhage. No evidence of mass lesion. No evidence of acute infa rction. There is mild periventricular and subcortical hypodensity probably related to small vessel is chemic disease. There is mild prominence of the sulci and ventricles related to cerebral atrophy. Int racranial calcified cerebral atherosclerosis is noted. No extra-axial collections. No mass effect or midline shift. Changes in the globes are likely from ocular lens surgery. There is mild mucosal thick ening of the paranasal sinuses. IMPRESSION: 1. No acute intracranial abnormality. 2. Age related findings. Reviewed, dictated and finalized at location B. K GREASER
--- NOTE | ~2023-12-19 | CT_ITS ---
EXAMINATION: CT cervical spine wo con DATE: 12/19/2023 08:21 INDICATION: Head injury TECHNIQUE: Computed tomography (CT) of the cervical spine was performed without intravenous contrast. The dose-length product (DLP) was 132.41 mGy-cm. Automated exposure control and iterative reconstruc tion technique were employed. COMPARISON: 10/12/2023 FINDINGS: There are 2 mm of unchanged anterolisthesis of C4 on C5. The vertebral body heights are nor mal. There is no fracture. There is severe loss of intervertebral disc space height at C6-7 and C7-T1 . The odontoid process is intact. The prevertebral soft tissues are normal. There is multilevel sever e facet and uncovertebral joint osteoarthritis. IMPRESSION: 1. Moderate to severe cervical spondylosis without acute findings or significant interval change. Reviewed, dictated and finalized at location B. SPORT ASSISTANT IMPRESSION: 1. Moderate to severe cervical spondylosis without acute findings or significan t interval change.
--- NOTE | 2023-12-19 08:06 | ECG_ITS ---
Measurements Intervals [place] Rate: 59 P: 57 IA: 199 QRS: 24 QRSD: 107 T: 53 QT: 449 QTc: 445 Interpretive Statements SINUS BRADYCARDIA ABNORMAL ECG COMPARED TO ECG 12/14/2023 16:15:40 SINUS BRADYCARDIA NOW PRESENT Electronically Signed On 12-19-2023 18:26:09 EVIDENCE SPECIALIST by Jean Pierre Fowler M.D.
[2023-12-19 09:13] LABS: Basophils Percent Auto 0.6 % (0.2-1.2); Eosinophils Absolute Auto 1.4 K/mm3 (0-0.3); Hematocrit 37.1 % (37.0-47.0); Hemoglobin 11.6 g/dL (12.0-15.0); Immature Granulocyte Absolute 0.02 K/mm3 (0.00-0.031); Immature Granulocyte Percent A 0.3 % (0-0.5); Mean Corpuscular HGB Conc 31.3 g/dl (32-36); Mean Corpuscular Hemoglobin 29.2 pg (26-34); Mean Corpuscular Volume 93.5 fl (80-100); Mean Platelet Volume 9.8 fl (7.4-10.4); Monocytes Absolute Auto 0.6 K/mm3 (0.1-0.6); Monocytes Percent Auto 9.2 % (2.6-8.5); Neutrophils Absolute Auto 3.3 K/mm3 (1.3-6.7); Neutrophils Percent Auto 46.9 % (45.5-73.1); Platelet Count Result 186 k/mm3 (150-375); Red Blood Count 3.97 M/mm3 (4.2-5.4); Red Cell Distribution Width 13.2 % (11.5-14.5)
[2023-12-19 09:21] LABS: INR 0.9; Prothrombin Time 12.1 Seconds (11.1-14.7)
[2023-12-19 09:22] LABS: Partial Thromboplastin Time 27.6 SECONDS (22.3-36.8)
[2023-12-19 09:24] LABS: Alanine Aminotransferase 15 U/L (6-35); Albumin Level 3.8 g/dL (3.5-5.1); Alkaline Phosphatase 84 U/L (38-126); Anion Gap 4 mmol/L (8-16); Aspartate Amino Transferase 23 U/L (14-36); Bilirubin,Total 0.5 mg/dL (0.2-1.3); Blood Urea Nitrogen 49 mg/dL (7-17); Calcium 10.4 mg/dL (8.4-10.2); Carbon Dioxide 30 mmol/L (22-30); Chloride 98 mmol/L (98-107); Estimated CRCL calculation 6 ml/min; Estimated Glomerular Filt Rate 7; Glucose 92 mg/dL (65-110); Potassium 3.9 mmol/L (3.4-5.0); Sodium 132 mmol/L (137-145)
[2023-12-19 09:34] LABS: Troponin I 0.012 ng/mL (0.000-0.034)
--- NOTE | 2023-12-19 11:36 | ECG_ITS ---
Measurements Intervals [place] Rate: 59 P: 58 [place]: 197 QRS: 26 QRSD: 100 T: 42 QT: 443 QTc: 442 Interpretive Statements SINUS BRADYCARDIA BORDERLINE ECG COMPARED TO ECG 12/19/2023 08:53:40 NO SIGNIFICANT CHANGES Electronically Signed On 12-19-2023 18:30:01 ENGINEERING MANAGER by Jean Pierre Fowler M.D.
[2023-12-19 11:59] LABS: Troponin I < 0.012 ng/mL (0.000-0.034)
--- NOTE | 2023-12-19 12:16 | ED.GENADULT ---
HPI - General Adult General Chief complaint: Fall Stated complaint: fall Time Seen by Provider: 12/19/23 07:39 History of Present Illness HPI narrative: Patient is an 82-year-old female who presents ER after falling out of her bed. She was found down. Denies trauma. She did tell EMS that her neck and chest hurt. She has no complaints at this time that she is in a C-collar. She is oriented x3 but does have a history of dementia. Related Data Home Medications Medication Instructions Recorded Confirmed buspirone 5 mg tablet 5 mg PO TID anxiety 01/24/23 12/14/23 escitalopram oxalate 5 mg tablet 5 mg PO DAILY 08/27/23 12/14/23 labetalol 200 mg tablet 300 mg PO BID 08/27/23 12/14/23 memantine 5 mg tablet 5 mg PO BID 08/27/23 12/14/23 sucroferric oxyhydroxide 500 mg 500 mg PO TID 08/27/23 12/14/23 chewable tablet (Velphoro) amlodipine 10 mg tablet 10 mg PO HS 12/14/23 12/14/23 losartan 50 mg tablet 50 mg PO DAILY 12/14/23 12/14/23 Allergies Allergy/AdvReac Type Severity Reaction Status Date / Time No Known Allergies Allergy Verified 10/11/23 10:25 Review of Systems Review of Systems: hx inconsistent with NH and EMS report ROS unobtainable: Yes unobtainable due to mental status PMFSH Past Medical History Medical History Anemia of chronic disease Cerebrovascular accident Closed displaced fracture of left femoral neck End-stage renal disease on hemodialysis Gout History of partial replacement of left hip joint using bipolar prosthesis Hypertension Memory loss Surgical History Surgical History History of appendectomy History of cataract extraction History of cholecystectomy History of colonoscopy History of oophorectomy History of parathyroidectomy Family History Family History Father Family history of elevated blood lipids Hypertension Sibling Family history of elevated blood lipids Hypertension Cancer of jaw Mother Myocardial infarction Social History Social History Social History: Surrogate medical decision maker: Agnes Monroy and Stacy Sheppard, daughters. Code status: Full code. Smoking status: Unknown if ever smoked Second hand tobacco smoke exposure: No Alcohol intake: unknown Substance use: unknown Lack of Transportation: No Lack of Food: Never True Current Housing: I Do Not Have Housing Concerned About Future Housing: No Difficulty Paying Gas/Electric Bills: No Difficulty Paying for Meds: No Currently Unemployed: No Education: Associate Degree Difficulty w/ Childcare or Family Care: No Additional living arrangements comments: . Has 2 children. Resides at [facility] since 09/01/23 Additional occupation/education comments: Retired. Spiritual care concerns: No Exam Narrative: GENERAL: Well-appearing, well-nourished, and in no acute distress. HEAD: Normocephalic, atraumatic. ENT: Mucous membranes moist. NECK: Supple. No midline tenderness. CHEST: Clear to auscultation. No respiratory distress. HEART: Regular rate and rhythm. Normal peripheral pulses. ABDOMEN: Soft, nontender, nondistended. EXTREMITIES: Normal range of motion. No edema. SKIN: Warm, dry, no rash. NEURO: Alert and oriented x3. PSYCH: Normal mood and affect. Course Course Emergency Course: Patient resting comfortably. Troponin negative x2. No acute injury on CT scan of the head neck. Patient appropriate for discharge back to facility. Vital Signs Vital signs: Vital Signs Temperature 97.6 F 12/19/23 07:37 Pulse Rate 60 12/19/23 07:37 Respiratory Rate 20 12/19/23 07:37 Blood Pressure 192/67 H 12/19/23 07:37 Pulse Oximetry 100 12/19/23 07:37 Oxygen Delivery Room Air 12/19/23 07:37
== END 2023-12-19 13:24 ==
PROVIDERS: Emergency Provider Emergency Medicine; PCP Hospitalist
DX: S19.9XXA Unspecified injury of neck, initial encounter (principal); I12.0 Hypertensive chronic kidney disease with stage 5 chronic kidney disease or end stage renal disease; N18.6 End stage renal disease; Z99.2 Dependence on renal dialysis; D63.1 Anemia in chronic kidney disease; Z96.642 Presence of left artificial hip joint; Z86.73 Personal history of transient ischemic attack (TIA), and cerebral infarction without residual deficits; Z98.49 Cataract extraction status, unspecified eye; Z90.49 Acquired absence of other specified parts of digestive tract; Z90.89 Acquired absence of other organs; M47.812 Spondylosis without myelopathy or radiculopathy, cervical region; R00.1 Bradycardia, unspecified; W06.XXXA Fall from bed, initial encounter
CPT/HCPCS: 36415; 70450; 71046; 72125; 80053; 84484; 85025; 85610; 85730; 93005; 99284

== ENCOUNTER 2024-01-18 07:42 | Emergency (ER) | payer MEDICARE, SELFPAY ==
--- NOTE | ~2024-01-18 | CT_ITS ---
EXAMINATION: CT brain wo con DATE: 01/18/2024 08:37 INDICATION: Fall. Head laceration. History of dementia and cerebrovascular accident. TECHNIQUE: Computed tomography (CT) of the head was performed without intravenous contrast. The mA wa s adjusted according to patient size. Iterative reconstruction technique was employed. Exam dose: 68 1.00 mGy-cm total exam DLP. COMPARISON: December 19, 2023 CT brain FINDINGS: Parasagittal right frontal cephalohematoma and subcutaneous emphysema consistent with scalp laceration. No skull fracture or bone destruction. No coup or contrecoup intracranial injury is detected. Bilateral vertebral artery, basilar artery and prominent bilateral carotid siphon internal carotid ar mayelin and right middle cerebral artery calcifications. There is nonspecific diminished attenuation of the cerebral white matter, likely due to chronic small vessel ischemic changes. Minimal bilateral basal ganglia calcification. No intracranial mass lesion or hemorrhage, midline shift or mass effect or subdural or epidural hemat [place] is detected. There is central and cortical cerebral and cerebellar moderately prominent atrophy. The mastoid air cells and paranasal sinuses are normally developed and aerated. IMPRESSION: Parasagittal frontal cephalohematoma and laceration No skull fracture or acute intracranial finding Reviewed, dictated and finalized at Location A. Reviewed, dictated and finalized at location B.
--- NOTE | ~2024-01-18 | XR_ITS ---
XR shoulder RT min 2V DATE: 01/18/2024 08:45 INDICATION: Fall. Right shoulder pain. TECHNIQUE: 4 views COMPARISON: None FINDINGS: There is osteopenia. There is severe joint space narrowing and very prominent spurring at the right glenohumeral joint con sistent with severe osteoarthritis. No fracture or dislocation, periosteal reaction or bone destruction is detected. IMPRESSION: Osteopenia Severe right glenohumeral osteoarthritis No fracture or dislocation Reviewed, dictated and finalized at location B.
[2024-01-18 07:44] VITALS: BP 190/80; PULSE 69; RESP 22; TEMP 36.6; O2SAT 98
--- NOTE | 2024-01-18 07:56 | ED.FALL ---
HPI - Fall General Chief Complaint: Fall <Kayla Samuel Ness III, DO - Last Filed: 01/18/24 18:13> Stated Complaint: FALL, HEAD LAC <Kayla Samuel Ness III, DO - Last Filed: 01/18/24 18:13> Time Seen by Provider: 01/18/24 08:07 <Kayla Samuel Ness III, DO - Last Filed: 01/18/24 18:13> History of Present Illness HPI Narrative: Pt was leaning over putting on socks this morning and fell over forward striking head and right shoulder. Pt denies LOC or neck pain. Pt has some pain in right shoulder and a large laceration on her forehead. <Kayla Samuel Ness III, DO - Last Filed: 01/18/24 18:13> Related Data Home Medications: Home Medications Medication Instructions Recorded Confirmed buspirone 5 mg tablet 5 mg PO TID anxiety 01/24/23 12/14/23 escitalopram oxalate 5 mg tablet 5 mg PO DAILY 08/27/23 12/14/23 labetalol 200 mg tablet 300 mg PO BID 08/27/23 12/14/23 memantine 5 mg tablet 5 mg PO BID 08/27/23 12/14/23 sucroferric oxyhydroxide 500 mg 500 mg PO TID 08/27/23 12/14/23 chewable tablet (Velphoro) amlodipine 10 mg tablet 10 mg PO HS 12/14/23 12/14/23 losartan 50 mg tablet 50 mg PO DAILY 12/14/23 12/14/23 <Kayla Samuel Riosver III, DO - Last Filed: 01/18/24 18:13> Allergies/Adverse Reactions: Allergies Allergy/AdvReac Type Severity Reaction Status Date / Time No Known Allergies Allergy Verified 01/18/24 07:55 <Kayla Samuel Riosver III, DO - Last Filed: 01/18/24 18:13> Review of Systems Review of Systems: All systems reviewed & are unremarkable except as noted in HPI and below <Kayla Samuel Ness III, DO - Last Filed: 01/18/24 18:13> PMFSH Past Medical History Medical History: Medical History Anemia of chronic disease Cerebrovascular accident Closed displaced fracture of left femoral neck End-stage renal disease on hemodialysis Gout History of partial replacement of left hip joint using bipolar prosthesis Hypertension Memory loss <Kayla Arzola III, DO - Last Filed: 01/18/24 18:13> Surgical History Surgical History: Surgical History History of appendectomy History of cataract extraction History of cholecystectomy History of colonoscopy History of oophorectomy History of parathyroidectomy <Kayla Arzola III, DO - Last Filed: 01/18/24 18:13> Family History Family History: Family History Father Family history of elevated blood lipids Hypertension Sibling Family history of elevated blood lipids Hypertension Cancer of jaw Mother Myocardial infarction <Kayla Arzola III, DO - Last Filed: 01/18/24 18:13> Social History Social History: Social History Social History: Surrogate medical decision maker: Agnes Monroy and Stacy Silver, daughters. Code status: Full code. Smoking status: Unknown if ever smoked Second hand tobacco smoke exposure: No Alcohol intake: unknown Substance use: unknown Lack of Transportation: No Lack of Food: Never True Current Housing: I Do Not Have Housing Concerned About Future Housing: No Difficulty Paying Gas/Electric Bills: No Difficulty Paying for Meds: No Currently Unemployed: No Education: Associate Degree Difficulty w/ Childcare or Family Care: No Additional living arrangements comments: . Has 2 children. Resides at [facility] since 09/01/23 Additional occupation/education comments: Retired. Spiritual care concerns: No <Kayla Arzola III, DO - Last Filed: 01/18/24 18:13> Exam Const: General: healthy appearing and no acute distress <Kayla Arzola III, DO - Last Filed: 01/18/24 18:13> Nutritional Appearance: well nourished <Kayla Arzola III, DO - Last Filed: 01/18/24 18:13> Orientation/consciousnes
[2024-01-18 08:21] LABS: Basophils Absolute Auto 0.1 K/mm3 (0.0-0.1); Basophils Percent Auto 0.9 % (0.2-1.2); Eosinophils Absolute Auto 0.4 K/mm3 (0-0.3); Eosinophils Percent Auto 7.5 % (0-4.4); Hematocrit 36.3 % (37.0-47.0); Hemoglobin 11.5 g/dL (12.0-15.0); Immature Granulocyte Absolute 0.03 K/mm3 (0.00-0.031); Immature Granulocyte Percent A 0.6 % (0-0.5); Lymphocytes Absolute Auto 1.73 K/mm3 (0.9-3.2); Lymphocytes Percent Auto 32.3 % (18.3-44.2); Mean Corpuscular HGB Conc 31.7 g/dl (32-36); Mean Corpuscular Hemoglobin 29.1 pg (26-34); Mean Corpuscular Volume 91.9 fl (80-100); Mean Platelet Volume 9.3 fl (7.4-10.4); Monocytes Absolute Auto 0.7 K/mm3 (0.1-0.6); Monocytes Percent Auto 13.1 % (2.6-8.5); Neutrophils Absolute Auto 2.4 K/mm3 (1.3-6.7); Neutrophils Percent Auto 45.6 % (45.5-73.1); Platelet Count Result 189 k/mm3 (150-375); Red Blood Count 3.95 M/mm3 (4.2-5.4); Red Cell Distribution Width 14.4 % (11.5-14.5); White Blood Count 5.4 K/mm3 (4.5-10.0)
--- NOTE | 2024-01-18 08:30 | PC.NURSE ---
pt to CT at this time via stretcher
[2024-01-18 08:34] LABS: Alanine Aminotransferase 15 U/L (6-35); Albumin Level 3.9 g/dL (3.5-5.1); Alkaline Phosphatase 83 U/L (38-126); Anion Gap 5 mmol/L (8-16); Aspartate Amino Transferase 23 U/L (14-36); Bilirubin,Total 0.6 mg/dL (0.2-1.3); Blood Urea Nitrogen 36 mg/dL (7-17); Calcium 10.2 mg/dL (8.4-10.2); Carbon Dioxide 35 mmol/L (22-30); Chloride 96 mmol/L (98-107); Estimated CRCL calculation 8 ml/min; Estimated Glomerular Filt Rate 10; Glucose 95 mg/dL (65-110); Potassium 3.8 mmol/L (3.4-5.0); Sodium 136 mmol/L (137-145)
[2024-01-18 08:41] LABS: INR 0.9; Prothrombin Time 12.2 Seconds (11.1-14.7)
[2024-01-18 08:54] VITALS: BP 219/59; PULSE 68; RESP 20; O2SAT 98
[2024-01-18 10:02] VITALS: BP 176/85; PULSE 73; RESP 15; O2SAT 99
== END 2024-01-18 11:04 ==
PROVIDERS: Emergency Provider Emergency Medicine; PCP Hospitalist
DX: S01.81XA Laceration without foreign body of other part of head, initial encounter (principal); I12.0 Hypertensive chronic kidney disease with stage 5 chronic kidney disease or end stage renal disease; N18.6 End stage renal disease; D63.1 Anemia in chronic kidney disease; Z99.2 Dependence on renal dialysis; Z96.642 Presence of left artificial hip joint; Z86.73 Personal history of transient ischemic attack (TIA), and cerebral infarction without residual deficits; Z98.49 Cataract extraction status, unspecified eye; Z90.49 Acquired absence of other specified parts of digestive tract; Z90.89 Acquired absence of other organs; M19.011 Primary osteoarthritis, right shoulder; M85.811 Other specified disorders of bone density and structure, right shoulder; W18.39XA Other fall on same level, initial encounter
CPT/HCPCS: 12051; 36415; 70450; 73030; 80053; 85025; 85610; 85730; 99284

== ENCOUNTER 2024-06-25 20:25 | Emergency (ER) | payer MEDICARE, SELFPAY ==
[2024-06-25 20:29] VITALS: BP 108/60; PULSE 71; RESP 21; TEMP 36.8; O2SAT 98
--- NOTE | 2024-06-25 20:33 | ECG_ITS ---
Test Date: 2024-06-25 20:41:08 Measurements Intervals [place] Rate: 69 P: 55 DC: 203 QRS: 8 QRSD: 90 T: 51 QT: 422 QTc: 455 Interpretive Statements SINUS RHYTHM WITH OCCASIONAL SUPRAVENTRICULAR PREMATURE COMPLEXES No previous ECG available for comparison Electronically Signed On 06-26-2024 15:39:46 CDT by Wilber Kumar M.D.
[2024-06-25 21:00] LABS: Basophils Percent Auto 0.7 % (0.2-1.2); Eosinophils Absolute Auto 0.2 K/mm3 (0-0.3); Eosinophils Percent Auto 3.6 % (0-4.4); Hematocrit 29.2 % (37.0-47.0); Hemoglobin 9.4 g/dL (12.0-15.0); Immature Granulocyte Absolute 0.02 K/mm3 (0.00-0.031); Immature Granulocyte Percent A 0.3 % (0-0.5); Lymphocytes Absolute Auto 1.61 K/mm3 (0.9-3.2); Lymphocytes Percent Auto 27.7 % (18.3-44.2); Mean Corpuscular HGB Conc 32.2 g/dl (32-36); Mean Corpuscular Hemoglobin 30.5 pg (26-34); Mean Corpuscular Volume 94.8 fl (80-100); Mean Platelet Volume 8.1 fl (7.4-10.4); Monocytes Absolute Auto 0.9 K/mm3 (0.1-0.6); Monocytes Percent Auto 14.6 % (2.6-8.5); Neutrophils Absolute Auto 3.1 K/mm3 (1.3-6.7); Neutrophils Percent Auto 53.1 % (45.5-73.1); Platelet Count Result 202 k/mm3 (150-375); Red Blood Count 3.08 M/mm3 (4.2-5.4); Red Cell Distribution Width 15.9 % (11.5-14.5); White Blood Count 5.8 K/mm3 (4.5-10.0)
[2024-06-25 21:11] LABS: Alanine Aminotransferase 14 U/L (6-35); Albumin Level 3.9 g/dL (3.5-5.1); Alkaline Phosphatase 82 U/L (38-126); Anion Gap 8 mmol/L (4-12); Aspartate Amino Transferase 21 U/L (14-36); Bilirubin,Total 0.4 mg/dL (0.2-1.3); Blood Urea Nitrogen 22 mg/dL (7-17); Calcium 9.4 mg/dL (8.4-10.2); Carbon Dioxide 37 mmol/L (22-30); Chloride 90 mmol/L (98-107); Estimated CRCL calculation 10 ml/min; Estimated Glomerular Filt Rate 13; Glucose 139 mg/dL (65-110); Potassium 4.3 mmol/L (3.4-5.0); Sodium 135 mmol/L (137-145)
--- NOTE | 2024-06-25 21:26 | ED.GENADULT ---
HPI - General Adult General Chief complaint: Recheck/Abnormal Lab/Rx Stated complaint: HYPOTENSION, LETHARGIC, ON HD. Time Seen by Provider: 06/25/24 20:32 Source: patient Mode of arrival: EMS Limitations: no limitations History of Present Illness HPI narrative: 83-year-old with history of ESRD on hemodialysis had dialysis earlier this afternoon presents to the complaints of the mesh seizures evening. Patient denies having any chest pain or shortness of breath or abdominal pain. Upon EMS arrival patient was found to be hypotensive with a systolic in 80s. She was given normal saline bolus 300 mL by the time she came to the ER she states that she is feeling little better. She denied any nausea, vomiting or abdominal pain. Onset (ago): hour(s) (2) Relieving factors: none Exacerbating factors: none Associated symptoms: denies other symptoms Related Data Home Medications Medication Instructions Recorded Confirmed buspirone 5 mg tablet 5 mg PO TID anxiety 01/24/23 12/14/23 escitalopram oxalate 5 mg tablet 5 mg PO DAILY 08/27/23 12/14/23 labetalol 200 mg tablet 300 mg PO BID 08/27/23 12/14/23 memantine 5 mg tablet 5 mg PO BID 08/27/23 12/14/23 sucroferric oxyhydroxide 500 mg 500 mg PO TID 08/27/23 12/14/23 chewable tablet (Velphoro) amlodipine 10 mg tablet 10 mg PO HS 12/14/23 12/14/23 losartan 50 mg tablet 50 mg PO DAILY 12/14/23 12/14/23 Allergies Allergy/AdvReac Type Severity Reaction Status Date / Time No Known Allergies Allergy Verified 06/25/24 20:35 Review of Systems Review of Systems: All systems reviewed & are unremarkable except as noted in HPI and below Constitutional: Constitutional: Reports no additional constitutional complaints Eyes: Eyes: Reports no additional eye complaints ENT: Reports system reviewed and no additional complaints, except as documented Cardiovascular: Cardiovascular: Reports no additional cardiovascular complaints Respiratory: Respiratory: Reports no additional respiratory complaints Gastrointestinal: Gastrointestinal: Reports no additional gastrointestinal complaints Genitourinary: Genitourinary: Reports no additional female genitourinary complaints Musculoskeletal: Musculoskeletal: Reports no additional musculoskeletal complaints Neurologic: Reports system reviewed and no additional complaints, except as documented [facility] Past Medical History Medical History Anemia of chronic disease Cerebrovascular accident Closed displaced fracture of left femoral neck End-stage renal disease on hemodialysis Gout History of partial replacement of left hip joint using bipolar prosthesis Hypertension Memory loss Surgical History Surgical History History of appendectomy History of cataract extraction History of cholecystectomy History of colonoscopy History of oophorectomy History of parathyroidectomy Family History Family History Father Family history of elevated blood lipids Hypertension Sibling Family history of elevated blood lipids Hypertension Cancer of jaw Mother Myocardial infarction Social History Social History Social History: Surrogate medical decision maker: Agnes Monroy and Stacy Silver, daughters. Code status: Full code. Smoking status: Unknown if ever smoked Second hand tobacco smoke exposure: No Alcohol intake: unknown Substance use: unknown Lack of Transportation: No Lack of Food: Never True Current Housing: I Do Not Have Housing Concerned About Future Housing: No Difficulty Paying Gas/Electric Bills: No Difficulty Paying for Meds: No Currently Unemployed: No Education: Associate Degree Difficulty w/ Childcare or Family Care: No Additional living arrangements comments: . Has 2 children. Resides
[2024-06-25 23:03] VITALS: BP 134/54; PULSE 80; RESP 15; O2SAT 98
--- NOTE | 2024-06-26 00:10 | PC.NURSE ---
Patient's daughter calls for an update. She states she wants a urinalysis due to confusion. ROSA Dillard made aware and gives VORB for urinalysis.
[2024-06-26 00:49] LABS: Add Urine Microscopic? YES; Appearance Urine Turbid (Clear); Bacteria Urine 4+ /hpf; Bilirubin Urine Negative (Negative); Blood Urine 1+ (Negative); Color Urine Yellow (Yellow); Glucose Urine UA Negative (Negative); Ketones Urine Negative (Negative); Leukocyte Esterase Ur 3+ LEU/UL (Negative); Need Manual Microscopic Reviewed; Nitrate Urine Negative (Negative); Non Pathogenic Casts >20; Protein Urine 3+ mg/dL (Negative); Specific Grav Ur 1.013 (1.001-1.035); Squamous Epithelial Cell Urine None Seen /hpf (Few); Urobilinogen Urine 0.2 mg/dL (<2.0); WBC Urine >100 /hpf (0-3); pH Urine 8.5 (5.0-9.0)
[2024-06-26 01:00] VITALS: BP 120/58; PULSE 74; RESP 15; O2SAT 99
[2024-06-26 06:49] VITALS: BP 144/56; PULSE 74; RESP 15; TEMP 36.7; O2SAT 97
--- NOTE | 2024-06-26 07:42 | PC.NURSE ---
Report called to Stacey in [place]
== END 2024-06-26 08:30 ==
PROVIDERS: Emergency Medicine; Emergency Provider Family Medicine; PCP Hospitalist
DX: I95.3 Hypotension of hemodialysis (principal); I12.0 Hypertensive chronic kidney disease with stage 5 chronic kidney disease or end stage renal disease; N18.6 End stage renal disease; Z99.2 Dependence on renal dialysis; D63.8 Anemia in other chronic diseases classified elsewhere; M10.9 Gout, unspecified; Z96.642 Presence of left artificial hip joint; Z86.73 Personal history of transient ischemic attack (TIA), and cerebral infarction without residual deficits; Z98.49 Cataract extraction status, unspecified eye; Z90.49 Acquired absence of other specified parts of digestive tract; Z90.89 Acquired absence of other organs; Z79.899 Other long term (current) drug therapy; I49.1 Atrial premature depolarization
CPT/HCPCS: 36415; 80053; 81001; 85025; 87086; 93005; 99283

== ENCOUNTER 2024-07-22 07:45 | Emergency (ER) | payer MEDICARE, SELFPAY ==
[2024-07-22] VITALS (7 sets, daily range): BP systolic 140–170; BP diastolic 53–61; PULSE 58–69; RESP 13–21; TEMP 36.3–36.4; O2SAT 92–95
--- NOTE | ~2024-07-22 | XR_ITS ---
EXAMINATION: XR wrist LT 2V DATE: 07/22/2024 08:12 INDICATION: Left wrist deformity. Fall. TECHNIQUE: 2 views of left wrist were obtained. COMPARISON: None. FINDINGS: There is an oblique fracture of distal radial metaphysis without involvement of the distal articular surface or distal radioulnar joint. The distal fracture fragment demonstrates 12 mm dorsal displacement, shortening, and dorsal angulation. There is 21 degrees dorsal tilt of the distal articu lar surface. There is an avulsion fracture of the ulnar styloid. There is moderate osteoarthritis of triscaphe joint and mild osteoarthritis of first carpometacarpal joint. IMPRESSION: 1. Oblique fracture of distal radial metaphysis. 2. Avulsion fracture of the ulnar styloid. Reviewed, dictated and finalized at location A.
--- NOTE | ~2024-07-22 | XR_ITS ---
EXAMINATION: XR wrist LT 2V DATE: 07/22/2024 12:13 INDICATION: Left wrist fracture status post splinting. TECHNIQUE: 2 views of left wrist were obtained. COMPARISON: Left wrist radiographs and 8:05 AM FINDINGS: There is a comminuted fracture of distal radial metaphysis. The main distal fracture fragme nt demonstrates 11 mm dorsal displacement, impaction, and dorsal angulation. There is 9 degrees dorsa l tilt of the distal articular surface. There is an old avulsion fracture of the ulnar styloid. There is moderate osteoarthritis of triscaphe joint and mild osteoarthritis of first carpometacarpal joint . Splint material is noted. IMPRESSION: 1. Comminuted fracture of distal radial metaphysis with improvement in alignment. 2. Avulsion fracture of the ulnar styloid. Reviewed, dictated and finalized at location A. IMPRESSION: 1. Comminuted fracture of distal radial metaphysis with improvement in alignmen t. 2. Avulsion fracture of the ulnar styloid.
--- NOTE | ~2024-07-22 | CT_ITS ---
EXAMINATION: CT cervical spine wo con DATE: 07/22/2024 08:44 INDICATION: Neck injury. Fall. TECHNIQUE: Computed tomography (CT) of the cervical spine was performed without intravenous contrast. Automated exposure control and iterative reconstruction technique were employed. The dose-length pro duct was 142.40 mGy-cm. COMPARISON: CT cervical spine 12/19/2023 FINDINGS: There are nodules in the thyroid measuring up to 12 mm, likely not clinically significant. There is a prosthetic stapes on the left. There is kyphosis of cervical spine. There is 2 mm anteroli sthesis of C3 on C4, C4 on C5, and C5 on C6. There is mild chronic anterior wedging of C7, T1, and T2 vertebral bodies. There is mildly decreased disc height at C4-C5 and C5-C6 and severely decreased di sc height at C6-C7 and C7-T1. The following disc levels are specifically discussed: C2-C3: There is mild bilateral uncovertebral joint osteoarthritis. There is moderate right and severe left facet joint osteoarthritis. There is mild left neural foraminal stenosis. There is mild central canal stenosis. C3-C4: There is severe bilateral uncovertebral joint osteoarthritis. There is severe bilateral facet joint osteoarthritis. There is moderate right and mild left neural foraminal stenosis. There is mild central canal stenosis. C4-C5: There is severe right and mild left uncovertebral joint osteoarthritis. There is severe bilate ral facet joint osteoarthritis. There is mild bilateral neural foraminal stenosis. There is mild cent ral canal stenosis. C5-C6: There is severe right and moderate left uncovertebral joint osteoarthritis. There is severe bi lateral facet joint osteoarthritis. There is mild bilateral neural foraminal stenosis. There is mild central canal stenosis. C6-C7: There is severe bilateral uncovertebral joint osteoarthritis. There is moderate bilateral face t joint osteoarthritis. There is moderate right and mild left neural foraminal stenosis. There is mil d central canal stenosis. C7-T1: There is severe bilateral uncovertebral joint osteoarthritis. There is severe bilateral facet joint osteoarthritis. There is mild bilateral neural foraminal stenosis. There is mild central canal stenosis. IMPRESSION: 1. No fracture. 2. Severe cervical spondylosis. Reviewed, dictated and finalized at location A.
--- NOTE | ~2024-07-22 | CT_ITS ---
EXAMINATION: CT brain wo con DATE: 07/22/2024 08:43 INDICATION: Fall. TECHNIQUE: Computed tomography (CT) of the head was performed without intravenous contrast. The mA wa s adjusted according to patient size. Iterative reconstruction technique was employed. The dose-lengt h product was 605.33 mGy-cm. COMPARISON: Head CT 01/18/2024 FINDINGS: There are scattered areas of low attenuation in the cerebral white matter. There is no intr acranial hemorrhage, acute infarction, or abnormal intracranial mass lesion. The ventricles are suleman l in size. There is mild mucosal thickening in the paranasal sinuses. The mastoid air cells are suleman l. There are likely changes of ocular lens replacement surgeries. IMPRESSION: 1. Stable moderate nonspecific cerebral white matter disease, which likely represents chronic small v essel ischemic disease. Reviewed, dictated and finalized at location A. IMPRESSION: 1. Stable moderate nonspecific cerebral white matter disease, which likely repr esents chronic small vessel ischemic disease.
--- NOTE | ~2024-07-22 | XR_ITS ---
EXAMINATION: XR chest 1V DATE: 07/22/2024 08:45 INDICATION: Fall. TECHNIQUE: A single frontal view of the chest was obtained. COMPARISON: Chest 2 views 12/19/2023 FINDINGS: There is chronic mild elevation of left hemidiaphragm. There is mild atelectasis at left anaya ng base. No pleural effusion or pneumothorax. The heart size is normal. Surgical clips in the right u pper quadrant are likely from cholecystectomy. IMPRESSION: 1. Mild atelectasis at left lung base. Reviewed, dictated and finalized at location A.
[2024-07-22] MEDS: ACETAMINOPHEN 500 MG TABLET 1000 MG PO (08:04)
[2024-07-22] MEDS: oxyCODONE HCL (*CRX) 5 MG TAB IR PO (08:05)
[2024-07-22 08:33] LABS: Basophils Absolute Auto 0.1 K/mm3 (0.0-0.1); Basophils Percent Auto 0.8 % (0.2-1.2); Eosinophils Absolute Auto 0.2 K/mm3 (0-0.3); Hematocrit 37.1 % (37.0-47.0); Hemoglobin 11.7 g/dL (12.0-15.0); Immature Granulocyte Absolute 0.09 K/mm3 (0.00-0.031); Immature Granulocyte Percent A 1.4 % (0-0.5); Immature Platelet Fraction Pct 1.8 % (0.9-11.2); Lymphocytes Absolute Auto 1.39 K/mm3 (0.9-3.2); Lymphocytes Percent Auto 21.8 % (18.3-44.2); Mean Corpuscular HGB Conc 31.5 g/dl (32-36); Mean Corpuscular Hemoglobin 30.1 pg (26-34); Mean Corpuscular Volume 95.4 fl (80-100); Mean Platelet Volume 8.9 fl (7.4-10.4); Monocytes Absolute Auto 0.7 K/mm3 (0.1-0.6); Monocytes Percent Auto 11.6 % (2.6-8.5); Neutrophils Absolute Auto 3.9 K/mm3 (1.3-6.7); Neutrophils Percent Auto 61.4 % (45.5-73.1); Platelet Count Result 208 k/mm3 (150-375); Red Blood Count 3.89 M/mm3 (4.2-5.4); White Blood Count 6.4 K/mm3 (4.5-10.0)
[2024-07-22 08:43] LABS: Alanine Aminotransferase 20 U/L (6-35); Albumin Level 4.3 g/dL (3.5-5.1); Alkaline Phosphatase 78 U/L (38-126); Anion Gap 14 mmol/L (4-12); Aspartate Amino Transferase 25 U/L (14-36); Bilirubin,Total 0.5 mg/dL (0.2-1.3); Blood Urea Nitrogen 47 mg/dL (7-17); Carbon Dioxide 29 mmol/L (22-30); Chloride 89 mmol/L (98-107); Estimated CRCL calculation 6 ml/min; Estimated Glomerular Filt Rate 7; Glucose 100 mg/dL (65-110); Potassium 5.5 mmol/L (3.4-5.0); Sodium 132 mmol/L (137-145)
[2024-07-22 08:54] LABS: Troponin I < 0.012 ng/mL (0.000-0.034)
--- NOTE | 2024-07-22 11:05 | ECG_ITS ---
Test Date: 2024-07-22 11:16:28 Measurements Intervals [place] Rate: 65 P: 71 NC: 200 QRS: 24 QRSD: 93 T: 54 QT: 419 QTc: 438 Interpretive Statements SINUS RHYTHM POSSIBLE LEFT ATRIAL ENLARGEMENT BASELINE ARTIFACT- I, II, III, AVR, AVL, AVF, V1-V6 BORDERLINE ECG Compared to ECG 06/25/2024 20:41:08 No significant changes Electronically Signed On 07-22-2024 12:23:55 CDT by Edward Castaneda D.O.
[2024-07-22] MEDS: SODIUM ZIRCONIUM CYCLOSILICATE 10 GM POWD.PACK PO (11:14)
--- NOTE | 2024-07-22 11:56 | ED.GENADULT ---
HPI - General Adult General Chief complaint: Fall Stated complaint: fall, wrist pain Time Seen by Provider: 07/22/24 07:50 History of Present Illness HPI narrative: This is an 83-year-old female presenting ED after a ground level fall. Patient has dementia and is a poor historian. She is unsure of why she fell. She knows that she landed on her left wrist and now has significant pain at her left wrist. She denies pain anywhere else. She does not believe that she hit her head. Denies fevers chills chest pain difficulty breathing abdominal pain. Patient is unsure she produces urine anymore. Last dialysis was Tuesday and she is due tomorrow. Related Data Home Medications Medication Instructions Recorded Confirmed buspirone 5 mg tablet 5 mg PO BID anxiety 01/24/23 07/22/24 escitalopram oxalate 5 mg tablet 5 mg PO DAILY 08/27/23 12/14/23 labetalol 200 mg tablet 300 mg PO BID 08/27/23 07/22/24 memantine 5 mg tablet 5 mg PO BID 08/27/23 07/22/24 sucroferric oxyhydroxide 500 mg 500 mg PO TID 08/27/23 12/14/23 chewable tablet (Velphoro) amlodipine 10 mg tablet 10 mg PO HS 12/14/23 07/22/24 losartan 50 mg tablet 50 mg PO DAILY 12/14/23 07/22/24 acetaminophen 325 mg tablet 650 mg PO Q4H PRN minor pain, 07/22/24 07/22/24 fever greater than 100.4 lanolin alcohols-mineral applic topical BID PRN dryness 07/22/24 oil-w.petrolatum-ceresin topical cream (Eucerin topical cream) loperamide 2 mg capsule 2 mg PO PRN 07/22/24 07/22/24 loperamide 2 mg tablet mg 07/22/24 Allergies Allergy/AdvReac Type Severity Reaction Status Date / Time No Known Allergies Allergy Verified 07/22/24 08:06 [facility] Past Medical History Medical History Anemia of chronic disease Cerebrovascular accident Closed displaced fracture of left femoral neck End-stage renal disease on hemodialysis Gout History of partial replacement of left hip joint using bipolar prosthesis Hypertension Memory loss Surgical History Surgical History History of appendectomy History of cataract extraction History of cholecystectomy History of colonoscopy History of oophorectomy History of parathyroidectomy Family History Family History Father Family history of elevated blood lipids Hypertension Sibling Family history of elevated blood lipids Hypertension Cancer of jaw Mother Myocardial infarction Social History Social History Social History: Surrogate medical decision maker: Agnes Monroy and Stacy Sheppard, daughters. Code status: Full code. Smoking status: Unknown if ever smoked Second hand tobacco smoke exposure: No Alcohol intake: unknown Substance use: unknown Lack of Transportation: No Lack of Food: Never True Current Housing: I Do Not Have Housing Concerned About Future Housing: No Difficulty Paying Gas/Electric Bills: No Difficulty Paying for Meds: No Currently Unemployed: No Education: Associate Degree Difficulty w/ Childcare or Family Care: No Additional living arrangements comments: . Has 2 children. Resides at [facility] since 09/01/23 Additional occupation/education comments: Retired. Spiritual care concerns: No Exam Narrative: APPEARANCE: No apparent distress. A&O x1 Head: atraumatic. EYES: EOMI, NOSE: Atraumatic NECK: Trachea midline RESPIRATORY: No increased rate of breathing, clear to auscultation CARDIOVASCULAR: RRR, dialysis access in left upper extremity, palpable thrill ABDOMINAL: Non-distended MUSCULOSKELETAl: Deformity and swelling of the left wrist NEURO: Alert. Moving 4/4 extremities to command SKIN:: Warm, dry. Normal color PSYCHIATRIC: Normal affect Course Vital Signs Vital signs: Vital Signs Temperature 97.4 F L 07/22/24 07:45
[2024-07-22 12:19] LABS: Troponin I < 0.012 ng/mL (0.000-0.034)
== END 2024-07-22 14:52 ==
PROVIDERS: Emergency Provider Emergency Medicine; PCP Hospitalist
DX: S59.292A Other physeal fracture of lower end of radius, left arm, initial encounter for closed fracture (principal); S52.612A Displaced fracture of left ulna styloid process, initial encounter for closed fracture; F03.90 Unspecified dementia, unspecified severity, without behavioral disturbance, psychotic disturbance, mood disturbance, and anxiety; I12.0 Hypertensive chronic kidney disease with stage 5 chronic kidney disease or end stage renal disease; N18.6 End stage renal disease; Z99.2 Dependence on renal dialysis; D63.8 Anemia in other chronic diseases classified elsewhere; M10.9 Gout, unspecified; Z96.642 Presence of left artificial hip joint; Z98.49 Cataract extraction status, unspecified eye; Z90.49 Acquired absence of other specified parts of digestive tract; Z90.89 Acquired absence of other organs; R90.82 White matter disease, unspecified; R94.31 Abnormal electrocardiogram [ECG] [EKG]; M47.812 Spondylosis without myelopathy or radiculopathy, cervical region; W18.30XA Fall on same level, unspecified, initial encounter
CPT/HCPCS: 25605; 25624; 29125; 36415; 70450; 71045; 72125; 73100; 80053; 84484; 85025; 85055; 93005; 99284; 99285; A9270

== ENCOUNTER 2024-08-18 18:12 | Emergency (ER) | payer MEDICARE, SELFPAY ==
--- NOTE | ~2024-08-18 | CT_ITS ---
CT brain wo con Ordering provider: Eusebia Dillard MD History: 83 years Female with . fall . Comparison: July 22, 2024 Technique: CT of the head without contrast. Radiation reduction technique utilized. The dose-length product was 681 mGy-cm. FINDINGS: BRAIN PARENCHYMA AND CSF SPACES: Mild leukoaraiosis and diffuse cortical atrophy. Mild atheromatous d isease. No midline shift, mass effect or hemorrhage. The brain parenchyma and CSF spaces are otherwi se normal. VISUALIZED PARANASAL SINUSES: Right ethmoid sinus disease. MASTOIDS: Well aerated. BONES: The bones appear intact. SOFT TISSUES: Visualized nasopharynx is normal. Left frontal scalp hematoma is seen. Superficial sof t tissues are normal. IMPRESSION: No acute intracranial findings. Reviewed, dictated and finalized at location A.
[2024-08-18 18:24] VITALS: BP 116/46; PULSE 73; RESP 16; TEMP 36.9; O2SAT 99
--- NOTE | 2024-08-18 19:06 | ED.FALL ---
HPI - Fall General Chief Complaint: Fall Stated Complaint: fall, head lac Time Seen by Provider: 08/18/24 19:00 History of Present Illness HPI Narrative: Patient is an 83-year-old female who presents emergency department this evening from her intermediate facility status post fall. Patient states that she was leaning forward in her wheelchair reaching for something and lost balance and follow forward. Patient did hit the left side of her her forehead on the ground. She did sustain a linear abrasion below her left eyebrow. Patient denies any loss of consciousness. She denies any blood thinner use. Patient is currently alert and oriented to person, place, time and situation and is answering all of my questions appropriately. Patient states that her tetanus is up-to-date stating that she has had 1 within the last year. Denies any additional symptoms or concerns at this time. Related Data Home Medications Medication Instructions Recorded Confirmed buspirone 5 mg tablet 5 mg PO BID anxiety 01/24/23 08/02/24 escitalopram oxalate 5 mg tablet 5 mg PO DAILY 08/27/23 08/02/24 labetalol 200 mg tablet 300 mg PO BID 08/27/23 08/02/24 memantine 5 mg tablet 5 mg PO BID 08/27/23 08/02/24 sucroferric oxyhydroxide 500 mg 500 mg PO TID 08/27/23 08/02/24 chewable tablet (Velphoro) amlodipine 10 mg tablet 10 mg PO HS 12/14/23 08/02/24 losartan 50 mg tablet 50 mg PO DAILY 12/14/23 08/02/24 acetaminophen 325 mg tablet 650 mg PO Q4H PRN minor pain, 07/22/24 08/02/24 fever greater than 100.4 lanolin alcohols-mineral applic topical BID PRN dryness 07/22/24 08/02/24 oil-w.petrolatum-ceresin topical cream (Eucerin topical cream) loperamide 2 mg capsule 2 mg PO PRN 07/22/24 08/02/24 loperamide 2 mg tablet mg 07/22/24 08/02/24 Allergies Allergy/AdvReac Type Severity Reaction Status Date / Time No Known Allergies Allergy Verified 08/02/24 12:08 Review of Systems Review of Systems: All systems are reviewed and are negative unless stated otherwise in the HPI. [facility] Past Medical History Medical History Anemia of chronic disease Cerebrovascular accident Closed displaced fracture of left femoral neck End-stage renal disease on hemodialysis Gout History of partial replacement of left hip joint using bipolar prosthesis Hypertension Memory loss Surgical History Surgical History History of appendectomy History of cataract extraction History of cholecystectomy History of colonoscopy History of oophorectomy History of parathyroidectomy Family History Family History Father Family history of elevated blood lipids Hypertension Sibling Family history of elevated blood lipids Hypertension Cancer of jaw Mother Myocardial infarction Social History Social History Social History: Surrogate medical decision maker: Agnes Monroy and Stacy Silver, daughters. Code status: Full code. Smoking status: Unknown if ever smoked Second hand tobacco smoke exposure: No Alcohol intake: unknown Substance use: unknown Lack of Transportation: No Lack of Food: Never True Current Housing: I Do Not Have Housing Concerned About Future Housing: No Difficulty Paying Gas/Electric Bills: No Difficulty Paying for Meds: No Currently Unemployed: No Education: Associate Degree Difficulty w/ Childcare or Family Care: No Additional living arrangements comments: . Has 2 children. Resides at [facility] since 09/01/23 Additional occupation/education comments: Retired. Spiritual care concerns: No Exam Narrative: General: Alert, awake, afebrile, in no acute distress. HEENT: PERRL, no rhinorrhea, no post nasal drip, oropharynx clear, linear laceration below the left eyebrow
--- NOTE | 2024-08-18 19:57 | PC.NURSE ---
1957-CALLED REPORT TO CAMELIA AT [facility] [place] ([phone]). CAMELIA STATES THEY DO NOT OFFER TRANSPORTATION SERVICES.
[2024-08-18 20:07] VITALS: BP 120/84; PULSE 71; RESP 20; TEMP 36.6; O2SAT 97
--- NOTE | 2024-08-18 21:05 | PC.NURSE ---
2100-[facility] HERE TO TRANSPORT PATIENT.
== END 2024-08-18 19:57 ==
PROVIDERS: Emergency Provider Emergency Medicine; PCP Hospitalist
DX: S00.212A Abrasion of left eyelid and periocular area, initial encounter (principal); W05.0XXA Fall from non-moving wheelchair, initial encounter; N18.6 End stage renal disease; Z99.2 Dependence on renal dialysis; I12.0 Hypertensive chronic kidney disease with stage 5 chronic kidney disease or end stage renal disease
CPT/HCPCS: 70450; 99284

== ENCOUNTER 2024-08-22 12:31 | Emergency (ER) | payer MEDICARE, SELFPAY ==
--- NOTE | ~2024-08-22 | CT_ITS ---
EXAMINATION: CT brain wo con DATE: 08/22/2024 14:04 INDICATION: Head injury. TECHNIQUE: Computed tomography (CT) of the head was performed without intravenous contrast. The mA wa s adjusted according to patient size. Iterative reconstruction technique was employed. The dose-lengt h product was 681.00 mGy-cm. COMPARISON: Head CT 08/18/2024 FINDINGS: There is no intracranial hemorrhage, acute infarction, or abnormal intracranial mass lesion . There are scattered areas of low attenuation in the cerebral white matter. The ventricles are suleman l in size. There is mucosal thickening in the paranasal sinuses. The mastoid air cells are normal. Th ere are likely changes of ocular lens replacement surgeries. There is left frontal scalp soft tissue swelling. IMPRESSION: 1. Stable moderate nonspecific cerebral white matter disease, which likely represents chronic small v essel ischemic disease. Reviewed, dictated and finalized at location A. IMPRESSION: 1. Stable moderate nonspecific cerebral white matter disease, which likely repr esents chronic small vessel ischemic disease.
[2024-08-22 12:44] VITALS: BP 115/54; PULSE 72; RESP 16; TEMP 36.6; O2SAT 100
--- NOTE | 2024-08-22 13:08 | ED_ITS ---
HPI - General Adult General Chief complaint: Unspecified Stated complaint: incontinent Time Seen by Provider: 08/22/24 13:04 History of Present Illness HPI narrative: Pt presents after having BM all over herself at dialysis. Pt has no complaints other than soiling herself. Pt did not get dialysis. Related Data Home Medications Medication Instructions Recorded Confirmed buspirone 5 mg tablet 5 mg PO BID anxiety 01/24/23 08/02/24 escitalopram oxalate 5 mg tablet 5 mg PO DAILY 08/27/23 08/02/24 labetalol 200 mg tablet 300 mg PO BID 08/27/23 08/02/24 memantine 5 mg tablet 5 mg PO BID 08/27/23 08/02/24 sucroferric oxyhydroxide 500 mg 500 mg PO TID 08/27/23 08/02/24 chewable tablet (Velphoro) amlodipine 10 mg tablet 10 mg PO HS 12/14/23 08/02/24 losartan 50 mg tablet 50 mg PO DAILY 12/14/23 08/02/24 acetaminophen 325 mg tablet 650 mg PO Q4H PRN minor pain, 07/22/24 08/02/24 fever greater than 100.4 lanolin alcohols-mineral applic topical BID PRN dryness 07/22/24 08/02/24 oil-w.petrolatum-ceresin topical cream (Eucerin topical cream) loperamide 2 mg capsule 2 mg PO PRN 07/22/24 08/02/24 loperamide 2 mg tablet mg 07/22/24 08/02/24 Allergies Allergy/AdvReac Type Severity Reaction Status Date / Time No Known Allergies Allergy Verified 08/02/24 12:08 Review of Systems Review of Systems: All systems reviewed & are unremarkable except as noted in HPI and below PMFSH Past Medical History Medical History Anemia of chronic disease Cerebrovascular accident Closed displaced fracture of left femoral neck End-stage renal disease on hemodialysis Gout History of partial replacement of left hip joint using bipolar prosthesis Hypertension Memory loss Surgical History Surgical History History of appendectomy History of cataract extraction History of cholecystectomy History of colonoscopy History of oophorectomy History of parathyroidectomy Family History Family History Father Family history of elevated blood lipids Hypertension Sibling Family history of elevated blood lipids Hypertension Cancer of jaw Mother Myocardial infarction Social History Social History Social History: Surrogate medical decision maker: Agnes Monroy and Stacy Sheppard, daughters. Code status: Full code. Smoking status: Unknown if ever smoked Second hand tobacco smoke exposure: No Alcohol intake: unknown Substance use: unknown Lack of Transportation: No Lack of Food: Never True Current Housing: I Do Not Have Housing Concerned About Future Housing: No Difficulty Paying Gas/Electric Bills: No Difficulty Paying for Meds: No Currently Unemployed: No Education: Associate Degree Difficulty w/ Childcare or Family Care: No Additional living arrangements comments: . Has 2 children. Resides at [facility] since 09/01[facility]23 Additional occupation/education comments: Retired. Spiritual care concerns: No Exam Const: General: cooperative, comfortable and no acute distress Nutritional Appearance: average body habitus Orientation/consciousness: patient oriented x3 Limitations: no limitations HENMT: Head: other (bruising to left eyebrow and face from prior fall) Resp: Effort & Inspection: normal respiratory effort and able to speak in complete sentences Auscultation: clear to auscultation bilaterally Cardio: Rate: regular rate Rhythm: regular rhythm GI: Inspection: normal to inspection GI Palp: No abdominal tenderness Auscultation: normal bowel sounds Skin: General skin exam: normal color and no rashes or lesions noted Neuro: General: patient oriented x3, moves all extremities and no focal motor deficits Extrem: General: normal to inspection and full ROM Psych: Appearance: grossly normal Mental Status: mental status grossly normal Course Vital Signs Vital signs: Vital Signs Temperature 97.8 F 08/22/24 12:44 Pulse Rate 72 08/22/24 12:44 Respiratory Rate 16 08/22/24 12:44 Blood Pressure 115/54 L 08/22/24 12:44 Pulse Oximetry 100 08/22/24 12:44 Oxygen Delivery Room Air 08/22/24 12:44 Temperature 97.8 F 08/22/24 12:44 Pulse Rate 83 08/22/24 16:00 Respiratory Rate 16 08/22/24 16:00 Blood Pressure 144/63 H 08/22/24 16:00 Pulse Oximetry 97 08/22/24 16:00 Oxygen Delivery Room Air 08/22/24 12:44 Medical Decision Making MDM Narrative Medical decision making narrative: Pt has no complaints other that needed to be assisted changing. will clean her up and change her. If able to go back to dialysis, should go back, otherwise can go tomorrow. family called and said pt has been a little more confused and is concerned she may have a slow bleed in her head. Pt had neg CT brain after fall. CT unremarkable. stable for d/c Vital Signs Vital Signs: Vital Signs Temperature 97.8 F 08/22/24 12:44 Pulse Rate 72 08/22/24 12:44 Respiratory Rate 16 08/22/24 12:44 Blood Pressure 115/54 L 08/22/24 12:44 Pulse Oximetry 100 08/22/24 12:44 Oxygen Delivery Room Air 08/22/24 12:44 Temperature 97.8 F 08/22/24 12:44 Pulse Rate 83 08/22/24 16:00 Respiratory Rate 16 08/22/24 16:00 Blood Pressure 144/63 H 08/22/24 16:00 Pulse Oximetry 97 08/22/24 16:00 Oxygen Delivery Room Air 08/22/24 12:44 Discharge Plan Discharge Clinical Impression: Loose bowel movement Patient Disposition: Home, Self-Care Condition: Stable Instructions: Antibiotic Form, Bowel Incontinence (ED) Prescriptions: No Action buspirone 5 mg tablet 5 mg PO BID Rx Instructions: 06:30-09:30 and 16:00-18:00 cephalexin 500 mg capsule 500 mg PO Q12H 7 Days Qty: 14 0RF labetalol 200 mg tablet 300 mg PO BID Rx Instructions: 06:30-09:30 and 16:00-18:00 memantine 5 mg Tablet 5 mg PO BID Rx Instructions: 07:00-10:00 and 16:00-18:00 escitalopram oxalate 5 mg Tablet 5 mg PO DAILY Velphoro 500 mg Tablet,Chewable 500 mg PO TID amlodipine 10 mg tablet 10 mg PO HS Rx Instructions: 19:00-22:00 losartan 50 mg tablet 50 mg PO DAILY Rx Instructions: 08:00 cefdinir 300 mg capsule 300 mg PO DAILY Qty: 4 0RF Rx Instructions: Tuesday, Tuesday, Wednesday Otto after dialysis acetaminophen 325 mg Tablet 650 mg PO Q4H PRN (Reason: minor pain, fever greater than 100.4) loperamide 2 mg Capsule 2 mg PO PRN Rx Instructions: 2 capsules after 1st loose stool, then 1 capsule after each subsequent loose stool, but not to exceed 4 capsules in 24 hours loperamide 2 mg Tablet Eucerin Cream TOPICAL BID PRN (Reason: dryness) Rx Instructions: 1 application BID PRN to affected areas for dryness acetaminophen 500 mg tablet 1,000 mg PO TID PRN (Reason: ted) 7 Days Qty: 42 0RF Follow-up/Referrals: Misael Asif MD [Primary Care Provider] -
--- NOTE | 2024-08-22 15:53 | PC.NURSE ---
Zahira pt caregiver @ [facility], called for report upon d/c.
[2024-08-22 16:00] VITALS: BP 144/63; PULSE 83; RESP 16; O2SAT 97
--- NOTE | 2024-08-22 16:01 | PC.NURSE ---
Stacy, pt daughter, called to update on pt d/c per request
== END 2024-08-22 17:01 ==
PROVIDERS: Emergency Provider Emergency Medicine; PCP Hospitalist
DX: R15.9 Full incontinence of feces (principal); N18.6 End stage renal disease; Z99.2 Dependence on renal dialysis; I12.9 Hypertensive chronic kidney disease with stage 1 through stage 4 chronic kidney disease, or unspecified chronic kidney disease
CPT/HCPCS: 70450; 99284

== ENCOUNTER → 2024-08-28 12:05 | Emergency (ER) | payer MEDICARE, SELFPAY | LOC: ANHED 08-29 04:01 | PROVIDERS: PCP Hospitalist | DX: Z53.21 Procedure and treatment not carried out due to patient leaving prior to being seen by health care provider (principal) | CPT/HCPCS: 99199 ==

== ENCOUNTER 2024-08-28 12:10 | Inpatient (IN) | payer MEDICARE, SELFPAY ==
[2024-08-28] VITALS (10 sets, daily range): BP systolic 113–173; BP diastolic 49–66; PULSE 63–93; RESP 16–24; TEMP 36.3–36.8; O2SAT 86–99; BMI 21.4
--- NOTE | ~2024-08-28 | XR_ITS ---
EXAMINATION: XR chest 1V DATE: 08/28/2024 12:42 INDICATION: Fall. TECHNIQUE: A single frontal view of the chest was obtained. COMPARISON: Chest single view 07/22/2024 FINDINGS: There is chronic mild elevation of left hemidiaphragm. There is mild atelectasis in left lo wer lung zone. No pleural effusion or pneumothorax. The heart size is normal. Surgical clips in the r ight upper quadrant are likely from cholecystectomy. IMPRESSION: 1. Mild atelectasis in left lower lung zone. Reviewed, dictated and finalized at location B.
--- NOTE | ~2024-08-28 | XR_ITS ---
EXAMINATION: XR surgery orthopedic DATE: 08/30/2024 16:57 INDICATION: Right hip intertrochanteric nailing for right hip fracture TECHNIQUE: 7 fluoroscopic images of the right hip and proximal femur were obtained during procedure p erformed by Dr. Yanez. Radiologist was not present for the imaging or procedure. The amount of f luoroscopy time used during this procedure was 1.3 minutes. Total DAP was 3.61 Gycm^2 COMPARISON: 08/28/2024 FINDINGS: Interval open reduction internal fixation of the comminuted intratrochanteric fracture of the proxima l right femur with long antegrade intramedullary erlin with femoral neck dynamic compression screw and mid diaphyseal interlocking screw. There is 3.5 cm proximal distraction of the lesser trochanteric fr agment which is not included within the fixation. Alignment of the fixation appears near-anatomic. Ri ght hip joint space appears relatively preserved. No new fractures identified. IMPRESSION: 1. Expected appearance post open reduction and internal fixation of a comminuted intertrochanteric fr acture the proximal right femur with the fixation in near anatomic alignment. See procedure note for further detail. Reviewed, dictated and finalized at location A. IMPRESSION: 1. Expected appearance post open reduction and internal fixation of a comminute d intertrochanteric fracture the proximal right femur with the fixation in near anatomic alignment. See procedure note for further detail.
--- NOTE | ~2024-08-28 | XR_ITS ---
EXAMINATION: XR hip RT 2V w AP pelvis DATE: 08/28/2024 12:42 INDICATION: Right hip pain. Fall. TECHNIQUE: An anteroposterior view of the pelvis and 2 views of right hip were obtained. COMPARISON: Pelvis radiograph 10/11/2023 FINDINGS: There is a comminuted intertrochanteric fracture of proximal right femur. The main distal f racture fragment demonstrates severe posterior and varus angulation and shortening. There is a bipola r left hip hemiarthroplasty in near-anatomic alignment. There is mild right hip osteoarthritis. There is thoracolumbar dextroscoliosis and severe lumbar spondylosis. IMPRESSION: 1. Comminuted intertrochanteric fracture of proximal right femur. 2. Mild right hip osteoarthritis. 3. Bipolar left hip hemiarthroplasty in near-anatomic alignment. Reviewed, dictated and finalized at location B.
--- NOTE | 2024-08-28 12:45 | ECG_ITS ---
Test Date: 2024-08-28 13:19:13 Measurements Intervals [place] Rate: 68 P: 75 PA: 190 QRS: 37 QRSD: 85 T: 62 QT: 423 QTc: 452 Interpretive Statements SINUS RHYTHM Compared to ECG 07/22/2024 11:16:28 No significant changes Electronically Signed On 08-28-2024 14:26:06 CDT by Wilber Kumar M.D.
[2024-08-28 13:10] LABS: Basophils Percent Auto 0.5 % (0.2-1.2); Eosinophils Absolute Auto 0.2 K/mm3 (0-0.3); Eosinophils Percent Auto 2.5 % (0-4.4); Hematocrit 29.9 % (37.0-47.0); Hemoglobin 9.6 g/dL (12.0-15.0); Immature Granulocyte Absolute 0.08 K/mm3 (0.00-0.031); Immature Granulocyte Percent A 1.4 % (0-0.5); Lymphocytes Absolute Auto 1.14 K/mm3 (0.9-3.2); Lymphocytes Percent Auto 19.3 % (18.3-44.2); Mean Corpuscular HGB Conc 32.1 g/dl (32-36); Mean Corpuscular Hemoglobin 30.3 pg (26-34); Mean Corpuscular Volume 94.3 fl (80-100); Mean Platelet Volume 8.7 fl (7.4-10.4); Monocytes Absolute Auto 0.6 K/mm3 (0.1-0.6); Monocytes Percent Auto 9.8 % (2.6-8.5); Neutrophils Absolute Auto 3.9 K/mm3 (1.3-6.7); Neutrophils Percent Auto 66.5 % (45.5-73.1); Platelet Count Result 202 k/mm3 (150-375); Red Blood Count 3.17 M/mm3 (4.2-5.4); Red Cell Distribution Width 13.7 % (11.5-14.5); White Blood Count 5.9 K/mm3 (4.5-10.0)
[2024-08-28 13:24] LABS: INR 0.9; Prothrombin Time 12.7 Seconds (11.1-14.7)
[2024-08-28 13:27] LABS: Alanine Aminotransferase 18 U/L (6-35); Albumin Level 3.9 g/dL (3.5-5.1); Alkaline Phosphatase 99 U/L (38-126); Anion Gap 12 mmol/L (4-12); Aspartate Amino Transferase 22 U/L (14-36); Bilirubin,Total 0.6 mg/dL (0.2-1.3); Blood Urea Nitrogen 31 mg/dL (7-17); Calcium 9.7 mg/dL (8.4-10.2); Carbon Dioxide 33 mmol/L (22-30); Chloride 90 mmol/L (98-107); Estimated CRCL calculation 7 ml/min; Estimated Glomerular Filt Rate 9; Glucose 105 mg/dL (65-110); Potassium 4.8 mmol/L (3.4-5.0); Sodium 135 mmol/L (137-145)
--- NOTE | 2024-08-28 13:38 | ED_ITS ---
HPI - Fall General Chief Complaint: Fall Stated Complaint: fall Time Seen by Provider: 08/28/24 12:41 Source: patient and EMS Mode of arrival: EMS Limitations: dementia and other (hard of hearing) History of Present Illness HPI Narrative: 83-year-old with a history of hypertension, ESRD on hemodialysis, frequent fa lls, vascular dementia was brought in from detention with the complaints of fall. It was a witnessed fall by the detention staff she was trying to getting pain up the toilet seat Patient complains of severe right hip pain. She denies any headache or chest pain. No LOC by the nursing staff MD complaint: fall Onset (ago): hour(s) (1) Fall from: other (unknown) Fall witnessed: yes, by living facility staff Place fall occurred: detention/[facility]NF Loss of consciousness: none Symptoms prior to fall: none Location of injury: other (Right hip) Quality: aching Associated symptoms (after fall): denies Related Data Home Medications Medication Instructions Recorded Confirmed buspirone 5 mg tablet 5 mg PO BID anxiety 01/24/23 08/02/24 escitalopram oxalate 5 mg tablet 5 mg PO DAILY 08/27/23 08/02/24 labetalol 200 mg tablet 300 mg PO BID 08/27/23 08/02/24 memantine 5 mg tablet 5 mg PO BID 08/27/23 08/02/24 sucroferric oxyhydroxide 500 mg 500 mg PO TID 08/27/23 08/02/24 chewable tablet (Velphoro) amlodipine 10 mg tablet 10 mg PO HS 12/14/23 08/02/24 losartan 50 mg tablet 50 mg PO DAILY 12/14/23 08/02/24 acetaminophen 325 mg tablet 650 mg PO Q4H PRN minor pain, 07/22/24 08/02/24 fever greater than 100.4 lanolin alcohols-mineral applic topical BID PRN dryness 07/22/24 08/02/24 oil-w.petrolatum-ceresin topical cream (Eucerin topical cream) loperamide 2 mg capsule 2 mg PO PRN 07/22/24 08/02/24 loperamide 2 mg tablet mg 07/22/24 08/02/24 Allergies Allergy/AdvReac Type Severity Reaction Status Date / Time No Known Allergies Allergy Verified 08/02/24 12:08 Review of Systems Constitutional: Constitutional: Reports no additional constitutional complaints Eyes: Eyes: Reports no additional eye complaints ENT: Reports system reviewed and no additional complaints, except as documented Cardiovascular: Cardiovascular: Reports no additional cardiovascular complaints Respiratory: Respiratory: Reports no additional respiratory complaints Gastrointestinal: Gastrointestinal: Reports no additional gastrointestinal complaints Musculoskeletal: Musculoskeletal: Reports as per HPI Neurologic: Reports system reviewed and no additional complaints, except as documented PMFSH Past Medical History Medical History Anemia of chronic disease Cerebrovascular accident Closed displaced fracture of left femoral neck End-stage renal disease on hemodialysis Gout History of partial replacement of left hip joint using bipolar prosthesis Hypertension Memory loss Surgical History Surgical History History of appendectomy History of cataract extraction History of cholecystectomy History of colonoscopy History of oophorectomy History of parathyroidectomy Family History Family History Father Family history of elevated blood lipids Hypertension Sibling Family history of elevated blood lipids Hypertension Cancer of jaw Mother Myocardial infarction Social History Social History Social History: Surrogate medical decision maker: Agnes Eliana and Stacy Sheppard, daughters. Code status: Full code. Smoking status: Unknown if ever smoked Second hand tobacco smoke exposure: No Alcohol intake: unknown Substance use: unknown Lack of Transportation: No Lack of Food: Never True Current Housing: I Do Not Have Housing Concerned About Future Housing: No Difficulty Paying Gas/Electric Bills: No Difficulty Paying for Meds: No Currently Unemployed: No Education: Associate Degree Difficulty w/ Childcare or Family Care: No Additional living arrangements comments: . Has 2 children. Resides at [facility] since 09/01/23 Additional occupation/education comments: Retired. Spiritual care concerns: No Exam Narrative: GENERAL: Well-appearing, well-nourished, and in no acute distress. Very hard of hearing HEAD: Normocephalic, atraumatic. Old bruise noted on the left side of the forehead just above the eyebrow EYES: PERRLA and EOMI. ENT: . Mucous membranes moist. NECK: Supple. CHEST: Clear to auscultation. No respiratory distress. HEART: Regular rate and rhythm. No murmur heard. Normal peripheral pulses. ABDOMEN: Soft, nontender, nondistended, normal active bowel sounds. EXTREMITIES: . Tender in the right hip SKIN: Warm, dry, no rash. NEURO: No focal deficits. Alert . Course Course Emergency Course: Patient in no distress informed her about her x-ray findings. I discussed with Dr. Yanez will consult the patient. Notified [facility] will accept the pt. Vital Signs Vital signs: Vital Signs Temperature 36.3 C L 08/28/24 12:07 Pulse Rate 65 08/28/24 12:07 Respiratory Rate 16 08/28/24 12:07 Pulse Oximetry 97 08/28/24 12:07 Temperature 36.5 C 08/28/24 12:12 Pulse Rate 63 08/28/24 12:12 Respiratory Rate 18 08/28/24 12:12 Blood Pressure 122/49 L 08/28/24 12:12 Pulse Oximetry 95 08/28/24 12:12 MDM - Fall MDM Narrative Medical decision making narrative: 83-year-old with a history of dementia, frequent falls here with another episode of fall while trying to get from the toilet seat landed on the hip tender on palpation will obtain x-rays and lab work hi Differential Diagnosis Differential diagnosis: Likely other (hip fracture , pelvic fracture) Medical Records Attestation: I reviewed the patient's medical records. Lab Data Attestation: I reviewed the patient's lab results. 08/28/24 13:02 08/28/24 13:02 Labs: Lab Results 08/28/24 Range/Units 13:02 WBC 5.9 (4.5-10.0) K/mm3 RBC 3.17 L (4.2-5.4) M/mm3 Hgb 9.6 L (12.0-15.0) g/dL Hct 29.9 L (37.0-47.0) % MCV 94.3 (80-100) fl MCH 30.3 (26-34) pg MCHC 32.1 (32-36) g/dl RDW 13.7 (11.5-14.5) % Plt Count 202 (150-375) k/mm3 MPV 8.7 (7.4-10.4) fl Immature Gran % (Auto) 1.4 H (0-0.5) % Neut % (Auto) 66.5 (45.5-73.1) % Lymph % (Auto) 19.3 (18.3-44.2) % [place] % (Auto) 9.8 H (2.6-8.5) % Eos % (Auto) 2.5 (0-4.4) % Baso % (Auto) 0.5 (0.2-1.2) % Lymph # (Auto) 1.14 (0.9-3.2) K/mm3 [place] # (Auto) 0.6 (0.1-0.6) K/mm3 Eos # (Auto) 0.2 (0-0.3) K/mm3 Baso # (Auto) 0.0 (0.0-0.1) K/mm3 Abs Immat Gran (auto) 0.08 H (0.00-0.031) K/mm3 Absolute Neuts (auto) 3.9 (1.3-6.7) K/mm3 Absolute Nucleated RBC 0.000 (0.0-0.012) K/mm3 Nucleated RBC % 0.0 (0.0-0.2) % PT 12.7 (11.1-14.7) Seconds INR 0.9 Sodium 135 L (137-145) mmol/L Potassium 4.8 (3.4-5.0) mmol/L Chloride 90 L (98-107) mmol/L Carbon Dioxide 33 H (22-30) mmol/L Anion Gap 12 (4-12) mmol/L BUN 31 H D (7-17) mg/dL Creatinine 4.80 H (0.7-1.0) mg/dL Estim Creat Clear Calc 7 ml/min Estimated GFR 9 L (59 - ) Glucose 105 (65-110) mg/dL Calcium 9.7 (8.4-10.2) mg/dL Total Bilirubin 0.6 (0.2-1.3) mg/dL AST 22 (14-36) U/L ALT 18 (6-35) U/L Alkaline Phosphatase 99 (38-126) U/L Total Protein 7.0 (6.3-8.2) g/dL Albumin 3.9 (3.5-5.1) g/dL Imaging Data Radiologist's impression: ITS Impressions Chest X-Ray 08/28/24 12:45 IMPRESSION: 1. Mild atelectasis in left lower lung zone. Hip/Pelvis X-Ray 08/28/24 12:46 IMPRESSION: 1. Comminuted intertrochanteric fracture of proximal right femur. 2. Mild right hip osteoarthritis. 3. Bipolar left hip hemiarthroplasty in near-anatomic alignment. Discharge Plan Discharge Clinical Impression: Closed hip fracture, End-stage renal disease on hemodialysis Patient Disposition: Still a Patient Condition: Stable Prescriptions: No Action buspirone 5 mg tablet 5 mg PO BID Rx Instructions: 06:30-09:30 and 16:00-18:00 cephalexin 500 mg capsule 500 mg PO Q12H 7 Days Qty: 14 0RF labetalol 200 mg tablet 300 mg PO BID Rx Instructions: 06:30-09:30 and 16:00-18:00 memantine 5 mg Tablet 5 mg PO BID Rx Instructions: 07:00-10:00 and 16:00-18:00 escitalopram oxalate 5 mg Tablet 5 mg PO DAILY Velphoro 500 mg Tablet,Chewable 500 mg PO TID amlodipine 10 mg tablet 10 mg PO HS Rx Instructions: 19:00-22:00 losartan 50 mg tablet 50 mg PO DAILY Rx Instructions: 08:00 cefdinir 300 mg capsule 300 mg PO DAILY Qty: 4 0RF Rx Instructions: Tuesday, Tuesday, Tuesday after dialysis acetaminophen 325 mg Tablet 650 mg PO Q4H PRN (Reason: minor pain, fever greater than 100.4) loperamide 2 mg Capsule 2 mg PO PRN Rx Instructions: 2 capsules after 1st loose stool, then 1 capsule after each subsequent loose stool, but not to exceed 4 capsules in 24 hours loperamide 2 mg Tablet Eucerin Cream TOPICAL BID PRN (Reason: dryness) Rx Instructions: 1 application BID PRN to affected areas for dryness acetaminophen 500 mg tablet 1,000 mg PO TID PRN (Reason: ted) 7 Days Qty: 42 0RF Follow-up/Referrals: Misael Asif MD [Primary Care Provider] - Time of Disposition: 13:54
--- NOTE | 2024-08-28 13:46 | P.HP_ITS ---
H&P: HPI History of Present Illness Date/Time: 08/28/24 13:45 Chief Complaint: Right hip pain after a fall. Narrative: This is an 83-year-old female with history of stroke, memory loss, end-stage renal disease on hemodialysis, hypertension, and chronic anemia who presented to the emergency department via EMS from [facility] for evaluation of right hip pain after a fall. She apparently slid off the toilet this morning and landed on her backside. She has been complaining of right hip pain since that time. The patient denies frequent falls but she has been seen in the emergency department 2 other times in the last month after falls, 1 of them in which she fractured her left wrist and more recently a fall with head trauma in which he sustained abrasions to the left forehead and I. At the time my evaluation she is resting comfortably and has no complaints. She denies head trauma and loss of consciousness in the fall. She did not sustain any other injuries in the fall today. She denies headache, chest pain, shortness of breath, nausea, vomiting, diarrhea, and dysuria. In the ED: Vital signs were stable on arrival. Labs are consistent with her baseline. Imaging showed a comminuted intertrochanteric fracture of the proximal right femur and she is being admitted in this setting for further treatment. Review of Systems Review of Systems: 12 systems were reviewed and are negativ e except for as per HPI. Limited however due to her short-term memory loss. [facility] Past Medical History Medical History Anemia of chronic disease Cerebrovascular accident End-stage renal disease on hemodialysis Gout Hypertension Memory loss Surgical History Surgical History History of appendectomy History of cataract extraction History of cholecystectomy History of colonoscopy History of oophorectomy History of parathyroidectomy History of partial replacement of left hip joint using bipolar prosthesis Family History Family History Father Family history of elevated blood lipids Hypertension Sibling Family history of elevated blood lipids Hypertension Cancer of jaw Mother Myocardial infarction Social History Social History Social History: Surrogate medical decision maker: Agnes Monroy and Stacy Sheppard, daughters. Code status: Do not resuscitate. Smoking status: Unknown if ever smoked Second hand tobacco smoke exposure: No Alcohol intake: former Substance use: never Substance use type: does not use Do You Feel Safe in your Home?: Yes Lack of Transportation: No Lack of Food: Never True Current Housing: I Have Housing Concerned About Future Housing: No Difficulty Paying Gas/Electric Bills: No Difficulty Paying for Meds: No Currently Unemployed: No Education: Bachelor's Degree Difficulty w/ Childcare or Family Care: No Additional living arrangements comments: . Has 2 children. Resident of [facility] since 09/01/23. Additional occupation/education comments: Retired. Spiritual care concerns: No Meds Home Medications and Allergies Home Medications Medication Instructions Recorded Confirmed Type buspirone 5 mg tablet 10 mg PO BID anxiety 01/24/23 08/28/24 History labetalol 200 mg tablet 300 mg PO BID 08/27/23 08/28/24 History memantine 5 mg tablet 5 mg PO BID 08/27/23 08/28/24 History amlodipine 10 mg tablet 10 mg PO HS 12/14/23 08/28/24 History losartan 50 mg tablet 50 mg PO DAILY 12/14/23 08/28/24 History cefdinir 300 mg capsule 300 mg PO DAILY #4 caps 12/16/23 08/28/24 Rx acetaminophen 325 mg tablet 650 mg PO Q4H PRN minor pain, 07/22/24 08/28/24 History fever greater than 100.4 lanolin alcohols-mineral 1 applic topical PRN PRN dryness 07/22/24 08/28/24 History oil-w.petrolatum-ceresin topical cream (Eucerin topical cream) loperamide 2 mg capsule 2 mg PO PRN 07/22/24 08/28/24 History Allergies Allergy/AdvReac Type Severity Reaction Status Date / Time No Known Allergies Allergy Verified 08/28/24 15:30 Vital Signs Vital Signs - 24 hr 08/28/24 12:07 08/28/24 12:12 Temperature 97.3 F L 97.7 F Pulse Rate 65 63 Respiratory Rate 16 18 Blood Pressure 122/49 L Pulse Oximetry 97 95 Exam Narrative: General: Thin, frail elderly female supine in bed. Weight: 56.7 kg. BMI: 25.1. HEENT: Healing bruise to the left forehead/eye. PERRL, EOMI. Sclera anicteric. Tacky mucous membranes. Neck: Supple. Respiratory: Lungs are clear to auscultation bilaterally. Cardiovascular: Regular rate and rhythm with S1-S2. Gastrointestinal: Abdomen is soft, nontender, and nondistended with positive bowel sounds. Skin: Warm and dry. Extremities: No cyanosis, clubbing, or edema. Radial and pedal pulses intact. Musculoskeletal: Mild swelling over the right anterior lateral hip. Slightly contracted lower extremities. Neurological: Alert to name, date of , and place. She cannot provide the current year. Cranial nerves 2-12 are grossly intact. Speech is clear. No facial asymmetry. No gross focal deficits to casual conversation. Psychiatric: Pleasant and cooperative with appropriate mood. She is forgetful H&P: Results Labs Labs: Short CBC 08/28/24 Range/Units 13:02 WBC 5.9 (4.5-10.0) K/mm3 Hgb 9.6 L (12.0-15.0) g/dL Hct 29.9 L (37.0-47.0) % Plt Count 202 (150-375) k/mm3 BMP 08/28/24 13:02 Sodium 135 L Potassium 4.8 Chloride 90 L Carbon Dioxide 33 H BUN 31 H D Creatinine 4.80 H Glucose 105 Calcium 9.7 Liver Function 08/28/24 Range/Units 13:02 Total Bilirubin 0.6 (0.2-1.3) mg/dL AST 22 (14-36) U/L ALT 18 (6-35) U/L Alkaline Phosphatase 99 (38-126) U/L Albumin 3.9 (3.5-5.1) g/dL Imaging Chest X-Ray 08/28/24 12:45 IMPRESSION: 1. Mild atelectasis in left lower lung zone. Hip/Pelvis X-Ray 08/28/24 12:46 IMPRESSION: 1. Comminuted intertrochanteric fracture of proximal right femur. 2. Mild right hip osteoarthritis. 3. Bipolar left hip hemiarthroplasty in near-anatomic alignment. Assessment and Plan Assessment and plan (1) Intertrochanteric fracture of right femur: Code(s): S72.141A - Displaced intertrochanteric fracture of right femur, initial encounter for closed fracture Status: Acute (2) End-stage renal disease on hemodialysis: Code(s): N18.6 - End stage renal disease; Z99.2 - Dependence on renal dialysis Status: Acute (3) Anemia of chronic disease: Code(s): D63.8 - Anemia in other chronic diseases classified elsewhere Status: Chronic (4) Hypertension: Code(s): I10 - Essential (primary) hypertension Status: Chronic Plan The patient presented to the emergency department for evaluation of right hip pain after sliding off the toilet this morning as detailed in HPI. Labs, imaging, EKG, and all reports were personally reviewed. Her right hip is fractured and orthopedic surgery has been consulted. Dr. Yanez plans for surgery on . Analgesics available as needed. Vital signs were reviewed and they are stable. Labs are consistent with her baseline. Nephrology consulted for dialysis. Her home medications will be reviewed and resumed as appropriate. Findings and treatment plan were discussed with the patient. Questions were solicited and answered to satisfaction. The patient's medical management will be taken over by the hospitalist team in a.m. Quality VTE Prophylaxis VTE prophylaxis: mechanical ordered If No VTE Prophylaxis Answer both mechanical and pharmacologic: Reason no pharmacologic proph: medical contraindication (anticipate upcoming surgery) Hospitalist MIPS Advance Care Plan I have confirmed that the patient's Advanced Care Plan is present, code status is documented, or surrogate decision maker is listed in patient medical record.: Yes Medication Reconciliation I have utilized all available resources to obtain, update and review the patients current medications (includes all prescriptions, OTC, herbals, cannabis, and nutritional supplements).: Yes
--- NOTE | 2024-08-28 15:00 | ADMGEN ---
This patient, Kirsty Rea, was admitted to 2 Medical Room 242-. Patient/family oriented to hospital policies and general routines including ID bracelet, bed and alarms, visiting hours, pain management, procedures, bathroom and other care routines, personal items, smoking policy, room service/diet, and visiting hours. Information on how to activate the Rapid Response Team has been discussed. Patient/Family are encouraged to report perceived risks to care and to ask questions if they do not understand what they are told or what they should do.
[2024-08-28] MEDS: SODIUM CHLORIDE 0.9% IV 1,000 ML 75 ML IV CONT (15:17)
--- NOTE | 2024-08-28 15:18 | P.CONOP_ITS ---
Assessment and Plan Assessment and plan (1) Intertrochanteric fracture of right femur: Qualifiers: Encounter type: initial encounter Fracture alignment: displaced Fracture type: closed Qualified Code(s): S72.141A - Displaced intertrochanteric fracture of right femur, initial encounter for closed fracture Code(s): S72.141A - Displaced intertrochanteric fracture of right femur, initial encounter for closed fracture Status: Acute (2) End-stage renal disease on hemodialysis: Code(s): N18.6 - End stage renal disease; Z99.2 - Dependence on renal dialysis Status: Acute (3) Memory loss: Code(s): R41.3 - Other amnesia Status: Acute Plan Displaced intertrochanteric fracture. High risk due to multiple medical problems including renal failure. I discussed the risks, benefits, and alternatives to surgery with the patient and her daughter. Proceed wtih ORIF Right hip with IM nail. History of Present Illness HPI Consult date: 08/29/24 Chief complaint: Hip Fracture Right Narrative: Patient complains of acute right hip pain. Fell from standing height. Admitted through the emergency room for definitive management. No previous hip pain. No numbness, tingling, or other associated symptoms. History of stroke, memory loss, end-stage renal disease on hemodialysis, hypertension, and chronic anemia. Review of Systems Review of Systems: Denies loss of consciousness. All systems reviewed & are unremarkable except as noted in HPI and below PMFSH Past Medical History Medical History Anemia of chronic disease Cerebrovascular accident End-stage renal disease on hemodialysis Gout Hypertension Memory loss Surgical History Surgical History History of appendectomy History of cataract extraction History of cholecystectomy History of colonoscopy History of oophorectomy History of parathyroidectomy History of partial replacement of left hip joint using bipolar prosthesis Family History Family History Father Family history of elevated blood lipids Hypertension Sibling Family history of elevated blood lipids Hypertension Cancer of jaw Mother Myocardial infarction Social History Social History Social History: Surrogate medical decision maker: Agnes Monroy and Stacy Sheppard, daughters. Code status: Do not resuscitate. Smoking status: Unknown if ever smoked Second hand tobacco smoke exposure: No Alcohol intake: former Substance use: never Substance use type: does not use Do You Feel Safe in your Home?: Yes Lack of Transportation: No Lack of Food: Never True Current Housing: I Have Housing Concerned About Future Housing: No Difficulty Paying Gas/Electric Bills: No Difficulty Paying for Meds: No Currently Unemployed: No Education: Bachelor's Degree Difficulty w/ Childcare or Family Care: No Additional living arrangements comments: . Has 2 children. Resident of [facility] since 09/01/23. Additional occupation/education comments: Retired. Spiritual care concerns: No Meds Home Medications and Allergies Home Medications Medication Instructions Recorded Confirmed Type buspirone 5 mg tablet 10 mg PO BID anxiety 01/24/23 08/28/24 History labetalol 200 mg tablet 300 mg PO BID 08/27/23 08/28/24 History memantine 5 mg tablet 5 mg PO BID 08/27/23 08/28/24 History amlodipine 10 mg tablet 10 mg PO HS 12/14/23 08/28/24 History losartan 50 mg tablet 50 mg PO DAILY 12/14/23 08/28/24 History cefdinir 300 mg capsule 300 mg PO DAILY #4 caps 12/16/23 08/28/24 Rx acetaminophen 325 mg tablet 650 mg PO Q4H PRN minor pain, 07/22/24 08/28/24 Hist ory fever greater than 100.4 lanolin alcohols-mineral 1 applic topical PRN PRN dryness 07/22/24 08/28/24 History oil-w.petrolatum-ceresin topical cream (Eucerin topical cream) loperamide 2 mg capsule 2 mg PO PRN 07/22/24 08/28/24 History Allergies Allergy/AdvReac Type Severity Reaction Status Date / Time No Known Allergies Allergy Verified 08/28/24 15:30 Vital Signs Vital Signs - 24 hr 08/28/24 12:07 08/28/24 12:12 08/28/24 13:35 Temperature 36.3 C L 36.5 C Pulse Rate 65 63 70 Respiratory Rate 16 18 17 Blood Pressure 122/49 L Pulse Oximetry 97 95 08/28/24 13:45 08/28/24 14:01 08/28/24 14:15 Temperature Pulse Rate 69 75 73 Respiratory Rate 19 18 19 Blood Pressure Pulse Oximetry 08/28/24 14:30 Temperature Pulse Rate 74 Respiratory Rate 21 H Blood Pressure 113/63 Pulse Oximetry Exam Narrative: Lower extremity shortened and externally rotated. Const: General: no acute distress Eyes: General: appearance normal, both eyes and all related structures Resp: Effort & Inspection: normal respiratory effort Skin: General skin exam: no rashes or lesions noted Neuro: Other: Wiggles toes well. Capillary refill brisk. Distal light touch sensation intact. Dorsalis pedis pulse palpable. Extrem: Other: No edema. Results Labs 08/29/24 05:30 08/29/24 05:30 Labs: Abnormal lab results 08/28/24 Range/Units 13:02 RBC 3.17 L (4.2-5.4) M/mm3 Hgb 9.6 L (12.0-15.0) g/dL Hct 29.9 L (37.0-47.0) % Immature Gran % (Auto) 1.4 H (0-0.5) % [place] % (Auto) 9.8 H (2.6-8.5) % Abs Immat Gran (auto) 0.08 H (0.00-0.031) K/mm3 Sodium 135 L (137-145) mmol/L Chloride 90 L (98-107) mmol/L Carbon Dioxide 33 H (22-30) mmol/L BUN 31 H D (7-17) mg/dL Creatinine 4.80 H (0.7-1.0) mg/dL Estimated GFR 9 L (59 - ) H & H 08/28/24 Range/Units 13:02 Hgb 9.6 L (12.0-15.0) g/dL Hct 29.9 L (37.0-47.0) % Coagulation 08/28/24 Range/Units 13:02 INR 0.9 All other labs normal. Quality VTE Prophylaxis VTE prophylaxis: mechanical ordered
--- NOTE | 2024-08-28 16:17 | PM.CNNEP ---
Assessment and Plan Assessment and plan (1) End stage renal disease: Code(s): N18.6 - End stage renal disease Status: Chronic Assessment and Plan: HD tomorrow continue Tuesday/Tuesday/Tuesday outpatient dialysis schedule follow electrolytes, volume status, and clearance (2) Intertrochanteric fracture of right femur: Qualifiers: Encounter type: initial encounter Fracture alignment: displaced Fracture type: closed Qualified Code(s): S72.141A - Displaced intertrochanteric fracture of right femur, initial encounter for closed fracture Code(s): S72.141A - Displaced intertrochanteric fracture of right femur, initial encounter for closed fracture Status: Acute Assessment and Plan: as noted by admission imaging Orthopedic recommendations noted will likely need surgical intervention (3) Hypertension: Code(s): I10 - Essential (primary) hypertension Status: Chronic Assessment and Plan: can fluctuate to extremes resumed home medications follow trend of hemodynamics. (4) Anemia: Code(s): D64.9 - Anemia, unspecified Status: Chronic Assessment and Plan: related to ESRD Epogen with HD follow trend of H/H I will continue to follow the patient with you while she remains hospitalized make further recommendations as needed. Thank you for allowing me to participate in the care of this patient. History of Present Illness Reason for Consult Consult date: 08/28/24 Reason for consult: end stage renal disease Chief Complaint Chief complaint: Hip Fracture Right History of Present Illness Narrative: The patient is an 83-year-old female with a past medical history as outlined below presented to [facility] Emergency Room via EMS from her nursing facility status post fall. Apparently, the patient slipped off the toilet this morning in landed on her backside. Since that fall, she has been complaining of right hip pain. From review her records, the patient has a known history of frequent falls as been seen several times here at [facility] ER for assessment of these falls. These falls have been associated with traumatic injury including a left wrist fracture and more recently head trauma with significant abrasions and trauma to her face. As far as I can tell, she did not have any dizziness, lightheadedness, palpitations, chest pain, or shortness of breath prior to or after the fall. She denies any headache, nausea, vomiting, diarrhea, or any other complaints on her arrival to the emergency room. Workup and evaluation emergency room demonstrated the patient to be afebrile and hemodynamically stable. Routine blood tests were significant for her known history of end-stage renal disease and associated labs consistent with this diagnosis. Subsequent imaging demonstrated a commuted inter trochanteric fracture of the proximal right femur. Given that she would likely need surgical intervention for this injury, orthopedics was consulted and she was subsequently admitted to the hospital for further evaluation therapy. Since her admission, she has had increasing issues with pain in her right hip and despite pain medications, she still has significant discomfort in this area. Renal consultation was requested due to her end-stage renal disease. The patient is quite familiar to me as I take care of her outpatient dialysis needs. She normally dialyzes on a Tuesday, Tuesday and Tuesday dialysis schedule under my care at [facility]. She is usually compliant with her dialysis treatments and her monthly labs show relative stability in her CKD parameters although she does have some significant shifts in her fluid status in association with variable blood pressure control along with difficulty controlling her phosphorus levels. Her last dialysis treatment was on Tuesday (08/27/24) and she is due for dialysis tomorrow. Currently, at the time my evaluation, she does not appear to be in acute distress. Review of Systems Review of Systems: As per HPI. [facility] Past Medical History Medical History Anemia of chronic disease Cerebrovascular accident End-stage renal disease on hemodialysis Gout Hypertension Memory loss Surgical History Surgical History History of appendectomy History of cataract extraction History of cholecystectomy History of colonoscopy History of oophorectomy History of parathyroidectomy History of partial replacement of left hip joint using bipolar prosthesis Family History Family History Father Family history of elevated blood lipids Hypertension Sibling Family history of elevated blood lipids Hypertension Cancer of jaw Mother Myocardial infarction Social History Social History Social History: Surrogate medical decision maker: Agnes Monroy and Stacy Sheppard, daughters. Code status: Do not resuscitate. Smoking status: Unknown if ever smoked Second hand tobacco smoke exposure: No Alcohol intake: former Substance use: never Substance use type: does not use Do You Feel Safe in your Home?: Yes Lack of Transportation: No Lack of Food: Never True Current Housing: I Have Housing Concerned About Future Housing: No Difficulty Paying Gas/Electric Bills: No Difficulty Paying for Meds: No Currently Unemployed: No Education: Bachelor's Degree Difficulty w/ Childcare or Family Care: No Additional living arrangements comments: . Has 2 children. Resident of [facility] since 09/01/23. Additional occupation/education comments: Retired. Spiritual care concerns: No Meds Home Medications and Allergies Home Medications Medication Instructions Recorded Confirmed Type buspirone 5 mg tablet 10 mg PO BID anxiety 01/24/23 08/28/24 History labetalol 200 mg tablet 300 mg PO BID 08/27/23 08/28/24 History memantine 5 mg tablet 5 mg PO BID 08/27/23 08/28/24 History amlodipine 10 mg tablet 10 mg PO HS 12/14/23 08/28/24 History losartan 50 mg tablet 50 mg PO DAILY 12/14/23 08/28/24 History cefdinir 300 mg capsule 300 mg PO DAILY #4 caps 12/16/23 08/28/24 Rx acetaminophen 325 mg tablet 650 mg PO Q4H PRN minor pain, 07/22/24 08/28/24 History fever greater than 100.4 lanolin alcohols-mineral 1 applic topical PRN PRN dryness 07/22/24 08/28/24 History oil-w.petrolatum-ceresin topical cream (Eucerin topical cream) loperamide 2 mg capsule 2 mg PO PRN 07/22/24 08/28/24 History Allergies Allergy/AdvReac Type Severity Reaction Status Date / Time No Known Allergies Allergy Verified 08/28/24 15:30 Vital Signs Vital Signs Temp Pulse Resp BP Pulse Ox O2 Del Method 08/28/24 15:10 20 99 Room Air 08/28/24 14:30 74 21 H 113/63 08/28/24 14:15 73 19 08/28/24 14:01 75 18 08/28/24 13:45 69 19 08/28/24 13:35 70 17 08/28/24 12:12 97.7 F 63 18 122/49 L 95 08/28/24 12:07 97.3 F L 65 16 97 Exam Narrative: GENERAL APPEARANCE: frail and elderly female in no acute distress HEENT: normocephalic, normal conjunctiva and sclera, nares patient; resolving facial bruising noted NECK: no lymphadenopathy, thyromegaly, or JVD MOUTH: normal lips, teeth, and gums CARDIOVASCULAR: RRR, normal S1 and S2, no rub RESPIRATORY: clear to auscultation bilaterally ABDOMEN: soft, nontender, nondistended, positive bowel sounds present EXTREMITIES: no cyanosis. clubbing, or significant edema; RLE shortened and externally rotated. NEUROLOGICAL: Awake and alert but pleasantly confused Results Lab Results 08/31/24 05:23 08/31/24 05:23 Lab results: Most recent lab results Calcium 9.7 mg/dL (8.4-10.2) 08/28/24 13:02
[2024-08-29] VITALS (24 sets, daily range): BP systolic 98–152; BP diastolic 19–75; PULSE 52–89; RESP 16–26; TEMP 36.1–37; O2SAT 95–100
[2024-08-29 05:41] LABS: Basophils Absolute Auto 0.1 K/mm3 (0.0-0.1); Basophils Percent Auto 0.5 % (0.2-1.2); Eosinophils Absolute Auto 0.1 K/mm3 (0-0.3); Eosinophils Percent Auto 0.9 % (0-4.4); Hematocrit 23.7 % (37.0-47.0); Hemoglobin 7.5 g/dL (12.0-15.0); Immature Granulocyte Absolute 0.06 K/mm3 (0.00-0.031); Immature Granulocyte Percent A 0.6 % (0-0.5); Lymphocytes Absolute Auto 1.63 K/mm3 (0.9-3.2); Lymphocytes Percent Auto 15.1 % (18.3-44.2); Mean Corpuscular HGB Conc 31.6 g/dl (32-36); Mean Corpuscular Hemoglobin 29.8 pg (26-34); Mean Platelet Volume 8.6 fl (7.4-10.4); Monocytes Percent Auto 9.4 % (2.6-8.5); Neutrophils Absolute Auto 7.9 K/mm3 (1.3-6.7); Neutrophils Percent Auto 73.5 % (45.5-73.1); Platelet Count Result 177 k/mm3 (150-375); Red Blood Count 2.52 M/mm3 (4.2-5.4); Red Cell Distribution Width 13.8 % (11.5-14.5); White Blood Count 10.8 K/mm3 (4.5-10.0)
[2024-08-29 05:54] LABS: Albumin Level 3.5 g/dL (3.5-5.1); Anion Gap 10 mmol/L (4-12); Blood Urea Nitrogen 39 mg/dL (7-17); Calcium 9.4 mg/dL (8.4-10.2); Carbon Dioxide 31 mmol/L (22-30); Chloride 92 mmol/L (98-107); Estimated CRCL calculation 5 ml/min; Estimated Glomerular Filt Rate 6; Glucose 107 mg/dL (65-110); Magnesium 1.8 mg/dL (1.6-2.3); Phosphorus 7.1 mg/dL (2.5-4.5); Potassium 5.2 mmol/L (3.4-5.0); Sodium 133 mmol/L (137-145)
--- NOTE | 2024-08-29 06:57 | P.PNIM_ITS ---
Progress Note: A&P Assessment and Plan (1) Intertrochanteric fracture of right femur: Qualifiers: Encounter type: initial encounter Fracture alignment: displaced Fracture type: closed Qualified Code(s): S72.141A - Displaced intertrochanteric fracture of right femur, initial encounter for closed fracture Code(s): S72.141A - Displaced intertrochanteric fracture of right femur, initial encounter for closed fracture Status: Acute Assessment and Plan: Per chart review, patient slid off the toilet landing on her backside resulting in severe right hip pain. She was denying recent falls, however was seen in the ED twice in the last month for falls which resulted in a fractured left wrist and more recently head trauma with abrasions to the forehead. She denies head trauma and LOC with this fall. - Hip/pelvis XR: 1. Comminuted intertrochanteric fracture of proximal right femur. 2. Mild right hip osteoarthritis. 3. Bipolar left hip hemiarthroplasty in near-anatomic alignment. - Analgesics - Ortho consulted Plan for ORIF right hip with IM nail tomorrow with Dr. Yanez (2) End-stage renal disease on hemodialysis: Code(s): N18.6 - End stage renal disease; Z99.2 - Dependence on renal dialysis Status: Acute Assessment and Plan: - Nephrology consulted Continue Tuesday/Tuesday/Tuesday outpatient dialysis schedule - Monitor I&Os, vital signs, neuro status and patient is a fall risk - Monitor serum electrolytes and CBC (3) Anemia of chronic disease: Code(s): D63.8 - Anemia in other chronic diseases classified elsewhere Status: Chronic Assessment and Plan: Related to ESRD. No signs of active bleeding, denies hematemesis, hematuria, hematochezia and melena. - H/H 7.5/23.7 on am labs - Epogen with HD once Hgb < 10 - Monitor (4) Hypertension: Code(s): I10 - Essential (primary) hypertension Status: Chronic Assessment and Plan: Chronic, continue home medications. - amlodipine 10 mg daily - labetalol 300 mg BID - losartan 50 mg daily - monitor Subjective Date/time seen: 08/29/24 06:57 Interval history: 83-year-old female with history of stroke, memory loss, end-stage renal disease on hemodialysis, hypertension, and chronic anemia who presented to the emergency department via EMS from [facility] for evaluation of right hip pain after a fall. Patient is pleasant sitting in bed. She is AOx3 but pleasantly confused with further discussion. She continues to endorse right hip pain but notes that this has improved since receiving the morphine. She denies tingling/numbness to the extremity and is able to move her toes. She is scheduled for surgery tomorrow. She denies chest pain, shortness of breath, nausea/vomiting and abdominal pain. Review of Systems Review of Systems: All systems reviewed & are unremarkable except as noted in HPI and below Exam Narrative: AF HR 84 RR 18 Spo2 100 BP 126/73 General: female in no acute respiratory distress who is nontoxic appearing, lying semi recumbent in bed. HEENT: Normocephalic. Atraumatic. Extraocular movement intact. Sclera clear and anicteric. No facial asymmetry. Chest: Lungs are clear to auscultation bilaterally. No wheezes or crackles. CV: Heart was regular rate and rhythm. S1-S2. No murmurs, gallops, or rubs. Abd: Abdomen was soft. Nontender. Nondistended. Positive bowel sounds. No organomegaly or masses. Ext: Right lower extremity is internally rotated and shortened. No clubbing, cyanosis, or edema. 2+ DP pulses bilaterally. Neuro: Patient is alert and oriented x3 (person, place, year) but pleasantly confused with further conversation. Speech is clear. Objective Data Vital Signs Vital Signs: Vital Signs - 24 hr 08/28/24 12:07 08/28/24 12:12 08/28/24 13:35 Temperature 97.3 F L 97.7 F Pulse Rate 65 63 70 Respiratory Rate 16 18 17 Blood Pressure 122/49 L Pulse Oximetry 97 95 Oxygen Delivery 08/28/24 13:45 08/28/24 14:01 08/28/24 14:15 Temperature Pulse Rate 69 75 73 Respiratory Rate 19 18 19 Blood Pressure Pulse Oximetry Oxygen Delivery 08/28/24 14:30 08/28/24 15:10 08/28/24 18:00 Temperature 98.3 F Pulse Rate 74 86 Respiratory Rate 21 H 20 20 Blood Pressure 113/63 173/66 H Pulse Oximetry 99 86 L Oxygen Delivery Room Air 08/28/24 19:45 08/29/24 02:00 08/29/24 04:30 Temperature 98.1 F 98 F 98.6 F Pulse Rate 93 86 83 Respiratory Rate 24 H 26 H 20 Blood Pressure 149/58 H 135/55 L 111/48 L Pulse Oximetry 96 96 95 Oxygen Delivery 08/28/24 20:00 Temperature Pulse Rate Respiratory Rate Blood Pressure Pulse Oximetry Oxygen Delivery Room Air Intake/Output Intake/Output: Intake & Output 08/26/24 08/27/24 08/28/24 08/29/24 23:59 23:59 23:59 23:59 Intake Total 226 550 Balance 226 550 Meds/Results Medications: Active Medications Generic Name Dose Route Start Last Admin Trade Name Freq PRN Reason Stop Dose Admin Acetaminophen 650 mg 08/28/24 13:56 Acetaminophen 325 Mg Tablet PO Q4H PRN Mild Pain (1-3) or Fever Amlodipine Besylate 10 mg 08/28/24 21:50 08/29/24 03:32 Amlodipine Besylate 10 Mg Tablet PO Not Given HS RENAE Buspirone HCl 10 mg 08/29/24 09:00 Buspirone Hcl 5 Mg Tablet PO BID RENAE Epoetin Ricardo-epbx 10,000 units 08/29/24 20:00 Epoetin Ricardo-Epbx 10,000 Units/Ml Vial IV PUSH 08/29/24 20:01 ONCE ONE Albumin Human 50 mls @ 999 mls/hr 08/29/24 06:17 Albutein IVPB 09/28/24 06:16 Q10M PRN HYPOTENSION Sodium Chloride 1,000 mls @ 999 mls/hr 08/29/24 06:17 Normal Saline Iv IV CONT 08/29/24 07:17 .Q1H1M ONE Labetalol HCl 300 mg 08/28/24 21:50 08/29/24 03:32 Labetalol Hcl 100 Mg Tablet PO Not Given BID RENAE Losartan Potassium 50 mg 08/29/24 09:00 Losartan Potassium 50 Mg Tablet PO DAILY RENAE Memantine 5 mg 08/29/24 09:00 Memantine 5 Mg Tablet PO BID RENAE Morphine Sulfate 2 mg 08/28/24 21:47 Morphine Sulfate (*Crx) 2 Mg/Ml Inj IV PUSH Q4H PRN Pain Rated 7-10 Multi-Ingred Cream/Lotion/Oil/Oint 1 applic 08/28/24 21:46 Eucerin Cream 120 Gm Jar TOPICAL PRN PRN dryness Ondansetron HCl 4 mg 08/28/24 13:56 Ondansetron Inj 4 Mg/2 Ml Vial IV PUSH Q4H PRN Nausea Radiology Results: ITS Impressions Chest X-Ray 08/28/24 12:45 IMPRESSION: 1. Mild atelectasis in left lower lung zone. Hip/Pelvis X-Ray 08/28/24 12:46 IMPRESSION: 1. Comminuted intertrochanteric fracture of proximal right femur. 2. Mild right hip osteoarthritis. 3. Bipolar left hip hemiarthroplasty in near-anatomic alignment. Labs Labs: Laboratory Results - last 24 hr 08/28/24 08/29/24 13:02 05:30 WBC 5.9 10.8 H RBC 3.17 L 2.52 L Hgb 9.6 L 7.5 L Hct 29.9 L 23.7 L MCV 94.3 94.0 MCH 30.3 29.8 MCHC 32.1 31.6 L RDW 13.7 13.8 Plt Count 202 177 MPV 8.7 8.6 Immature Gran % (Auto) 1.4 H 0.6 H Neut % (Auto) 66.5 73.5 H Lymph % (Auto) 19.3 15.1 L [place] % (Auto) 9.8 H 9.4 H Eos % (Auto) 2.5 0.9 Baso % (Auto) 0.5 0.5 Lymph # (Auto) 1.14 1.63 [place] # (Auto) 0.6 1.0 H Eos # (Auto) 0.2 0.1 Baso # (Auto) 0.0 0.1 Abs Immat Gran (auto) 0.08 H 0.06 H Absolute Neuts (auto) 3.9 7.9 H Absolute Nucleated RBC 0.000 0.000 Nucleated RBC % 0.0 0.0 PT 12.7 INR 0.9 Sodium 135 L 133 L Potassium 4.8 5.2 H Chloride 90 L 92 L Carbon Dioxide 33 H 31 H Anion Gap 12 10 BUN 31 H D 39 H Creatinine 4.80 H 6.50 H Estim Creat Clear Calc 7 5 Estimated GFR 9 L 6 L Glucose 105 107 Calcium 9.7 9.4 Phosphorus 7.1 H Magnesium 1.8 Total Bilirubin 0.6 AST 22 ALT 18 Alkaline Phosphatase 99 Total Protein 7.0 Albumin 3.9 3.5
[2024-08-29 07:24] LABS: Hepatitis B Surface Antigen Negative (Negative)
[2024-08-29 07:42] LABS: Hepatitis B Surface Anti Res Positive
--- NOTE | 2024-08-29 08:10 | PC.NURSE ---
Patient off floor to dialysis via bed. Report given to Yanci BOSS.
[2024-08-29] MEDS: ALBUMIN HUMAN 25% 12.5 GM/50ML 50 ML 999 GM (08:45)
[2024-08-29] MEDS: SODIUM CHLORIDE 0.9% IV 1,000 ML 999 ML IV CONT (10:57)
[2024-08-29] MEDS: EPOETIN ALFA-EPBX 10,000 UNITS/ML VIAL 10000 UNITS IV PUSH (10:58)
--- NOTE | 2024-08-29 11:40 | P.PNNP_ITS ---
Progress Note: A&P Assessment and Plan (1) End stage renal disease: Code(s): N18.6 - End stage renal disease Status: Chronic Assessment and Plan: * HD today * continue Tuesday/Tuesday/Tuesday outpatient dialysis schedule while hospitalized * follow electrolytes, volume status, and clearance (2) Intertrochanteric fracture of right femur: Qualifiers: Encounter type: initial encounter Fracture alignment: displaced Fracture type: closed Qualified Code(s): S72.141A - Displaced intertrochanteric fracture of right femur, initial encounter for closed fracture Code(s): S72.141A - Displaced intertrochanteric fracture of right femur, initial encounter for closed fracture Status: Acute Assessment and Plan: * as noted by admission imaging * Orthopedic recommendations noted * will likely need surgical intervention (3) Hypertension: Code(s): I10 - Essential (primary) hypertension Status: Chronic Assessment and Plan: * can fluctuate to extremes * resumed on home medications * pain medications likely playing a role * follow trend of hemodynamics. (4) Anemia: Code(s): D64.9 - Anemia, unspecified Status: Chronic Assessment and Plan: * related to ESRD * Retacrit with HD * follow trend of H/H (5) Dementia: Code(s): F03.90 - Unspecified dementia, unspecified severity, without behavioral disturbance, psychotic disturbance, mood disturbance, and anxiety Status: Chronic Assessment and Plan: * appears at baseline mentation * continue supportive therapy Will continue to follow. Subjective Date/time seen: 08/29/24 11:40 Interval history: Follow-up for end stage renal disease on hemodialysis. Tolerating dialysis treatment at the time of my visit (seen on HD at 11:30AM); fluctuating hemodynamics/blood pressure noted earlier (due to pain medications?); still having significant pain and IV morphine is not helping that much; Orthopedics following with tentative plan for operative intervention soon. Exam Narrative: General: elderly and frail female in mild distress (secondary to pain) Heart: normal S1 and S2; no rub Lungs: decreased at bases Abdomen: soft, nontender, nondistended, positive bowel sounds Extremities: no cyanosis or clubbing; no edema Skin: warm and dry Objective Data Vital Signs Vital Signs: Vital Signs Temp Pulse Resp BP Pulse Ox O2 Del Method FiO2 08/29/24 11:39 82 101/49 L 08/29/24 11:30 86 102/43 L 08/29/24 11:00 85 115/19 L 08/29/24 10:45 81 152/55 H 08/29/24 10:30 78 129/27 L 08/29/24 10:15 79 115/50 L 08/29/24 10:00 79 104/49 L 08/29/24 09:45 72 123/52 L 08/29/24 09:30 77 107/46 L 08/29/24 09:15 52 L 116/75 08/29/24 09:00 72 120/27 L 08/29/24 08:45 89 98/35 L 08/29/24 08:30 75 138/53 L 08/29/24 11:53 98.4 F 81 16 123/36 L 100 08/29/24 11:15 83 122/35 L 08/29/24 08:24 75 133/46 L 08/29/24 08:11 98.6 F 76 18 145/36 H 100 08/29/24 08:11 100 08/28/24 20:00 Room Air 08/29/24 04:30 98.6 F 83 20 111/48 L 95 08/29/24 02:00 98 F 86 26 H 135/55 L 96 08/28/24 19:45 98.1 F 93 24 H 149/58 H 96 08/28/24 18:00 98.3 F 86 20 173/66 H 86 L 08/28/24 15:10 20 99 Room Air 08/28/24 14:30 74 21 H 113/63 08/28/24 14:15 73 19 Intake/Output Intake/Output: Intake & Output 08/26/24 08/27/24 08/28/24 08/29/24 23:59 23:59 23:59 23:59 Intake Total 226 550 Output Total 1500 Balance 226 -950 Meds/Results Medications: Active Medications Generic Name Dose Route Start Last Admin Trade Name Freq PRN Reason Stop Dose Admin Acetaminophen 650 mg 08/28/24 13:56 Acetaminophen 325 Mg Tablet PO Q4H PRN Mild Pain (1-3) or Fever Amlodipine Besylate 10 mg 08/28/24 21:50 08/29/24 03:32 Amlodipine Besylate 10 Mg Tablet PO Not Given HS RENAE Buspirone HCl 10 mg 08/29/24 09:00 08/29/24 09:16 Buspirone Hcl 5 Mg Tablet PO Not Given BID [facility] Epoetin Ricardo-epbx 10,000 units 08/29/24 20:00 08/29/24 10:58 Epoetin Ricardo-Epbx 10,000 Units/Ml Vial IV PUSH 08/29/24 20:01 10,000 units ONCE ONE Administration Albumin Human 50 mls @ 999 mls/hr 08/29/24 06:17 Albutein IVPB 09/28/24 06:16 Q10M PRN HYPOTENSION Labetalol HCl 300 mg 08/28/24 21:50 08/29/24 09:16 Labetalol Hcl 100 Mg Tablet PO Not Given BID [facility] Losartan Potassium 50 mg 08/29/24 09:00 08/29/24 09:16 Losartan Potassium 50 Mg Tablet PO Not Given DAILY [facility] Memantine 5 mg 08/29/24 09:00 08/29/24 09:16 Memantine 5 Mg Tablet PO Not Given BID [facility] Morphine Sulfate 2 mg 08/28/24 21:47 08/29/24 12:23 Morphine Sulfate (*Crx) 2 Mg/Ml Inj IV PUSH 2 mg Q4H PRN Administration Pain Rated 7-10 Multi-Ingred Cream/Lotion/Oil/Oint 1 applic 08/28/24 21:46 Eucerin Cream 120 Gm Jar TOPICAL PRN PRN dryness Ondansetron HCl 4 mg 08/28/24 13:56 Ondansetron Inj 4 Mg/2 Ml Vial IV PUSH Q4H PRN Nausea Radiology Results: ITS Impressions Chest X-Ray 08/28/24 12:45 IMPRESSION: 1. Mild atelectasis in left lower lung zone. Hip/Pelvis X-Ray 08/28/24 12:46 IMPRESSION: 1. Comminuted intertrochanteric fracture of proximal right femur. 2. Mild right hip osteoarthritis. 3. Bipolar left hip hemiarthroplasty in near-anatomic alignment. Labs Labs: Laboratory Tests 08/29/24 05:30 08/29/24 05:30 Calcium 9.4 Phosphorus 7.1 H Magnesium 1.8 Albumin 3.5 Hep Bs Antigen Negative Hep Bs Antibody Positive
[2024-08-29] MEDS: MORPHINE SULFATE (*CRX) 2 MG/ML INJ IV PUSH (12:23)
--- NOTE | 2024-08-29 12:23 | PC.NURSE ---
Patient returned to floor from dialysis via bed. No patient complaints at this time.
--- NOTE | 2024-08-29 12:53 | P.PNOP_ITS ---
Progress Note: A&P Assessment and Plan (1) Closed left hip fracture: Qualifiers: Encounter type: initial encounter Qualified Code(s): S72.002A - Fracture of unspecified part of neck of left femur, initial encounter for closed fracture Code(s): S72.002A - Fracture of unspecified part of neck of left femur, initial encounter for closed fracture Status: Acute (2) End stage renal disease: Code(s): N18.6 - End stage renal disease Status: Chronic (3) Anemia: Code(s): D64.9 - Anemia, unspecified Status: Chronic Plan Displaced intertrochanteric fracture. High risk due to multiple medical problems including renal failure. Patient is in severe 10/10 pain. Morphine is not helping. She will benefit from ORIF right hip with IM nail. Surgery scheduled for tomorrow. Dr. Yanez will discuss with family today. Last GFR was 6. Creatinine 6.5. Patient had dialysis this AM. Patient does have a hematoma at the hip fracture. Hgb 7.5. Plan for ORIF tomorrow. Subjective Subjective Date/Time Seen: 08/29/24 12:53 Interval history: Patient complaints of 10/10 hip pain. Worse sense dialysis. Review of Systems Review of Systems: All systems reviewed & are unremarkable except as noted in HPI and below Exam Narrative: 83 y/o female. Resting comfortably in bed. Uncomfortable and in pain. No rashes or lesions noted. Warm, normal appearing skin. Tenderness at the hip. Hematoma over fracture site. Left lower leg shortened and externally rotated. Calf nontender. Distal pulses palpable. Normal capillary refill. Patient able to move and wiggle toes. Light touch sensation intact. Quijano catheter in place. Objective Data Vital Signs Vital Signs: Vital Signs - 24 hr 08/28/24 13:35 08/28/24 13:45 08/28/24 14:01 Temperature Pulse Rate 70 69 75 Respiratory Rate 17 19 18 Blood Pressure Pulse Oximetry Oxygen Delivery Fraction of Inspired Oxygen 08/28/24 14:15 08/28/24 14:30 08/28/24 15:10 Temperature Pulse Rate 73 74 Respiratory Rate 19 21 H 20 Blood Pressure 113/63 Pulse Oximetry 99 Oxygen Delivery Room Air Fraction of Inspired Oxygen 08/28/24 18:00 08/28/24 19:45 08/29/24 02:00 Temperature 98.3 F 98.1 F 98 F Pulse Rate 86 93 86 Respiratory Rate 20 24 H 26 H Blood Pressure 173/66 H 149/58 H 135/55 L Pulse Oximetry 86 L 96 96 Oxygen Delivery Fraction of Inspired Oxygen 08/29/24 04:30 08/28/24 20:00 08/29/24 08:11 Temperature 98.6 F Pulse Rate 83 Respiratory Rate 20 Blood Pressure 111/48 L Pulse Oximetry 95 Oxygen Delivery Room Air Fraction of Inspired Oxygen 100 08/29/24 08:11 08/29/24 08:24 08/29/24 08:30 Temperature 98.6 F Pulse Rate 76 75 75 Respiratory Rate 18 Blood Pressure 145/36 H 133/46 L 138/53 L Pulse Oximetry 100 Oxygen Delivery Fraction of Inspired Oxygen 08/29/24 08:45 08/29/24 09:00 08/29/24 09:15 Temperature Pulse Rate 89 72 52 L Respiratory Rate Blood Pressure 98/35 L 120/27 L 116/75 Pulse Oximetry Oxygen Delivery Fraction of Inspired Oxygen 08/29/24 09:30 08/29/24 09:45 08/29/24 10:00 Temperature Pulse Rate 77 72 79 Respiratory Rate Blood Pressure 107/46 L 123/52 L 104/49 L Pulse Oximetry Oxygen Delivery Fraction of Inspired Oxygen 08/29/24 10:15 08/29/24 10:30 08/29/24 10:45 Temperature Pulse Rate 79 78 81 Respiratory Rate Blood Pressure 115/50 L 129/27 L 152/55 H Pulse Oximetry Oxygen Delivery Fraction of Inspired Oxygen 08/29/24 11:00 Temperature Pulse Rate 85 Respiratory Rate Blood Pressure 115/19 L Pulse Oximetry Oxygen Delivery Fraction of Inspired Oxygen Intake/Output Intake/Output: Intake & Output 08/26/24 08/27/24 08/28/24 08/29/24 23:59 23:59 23:59 23:59 Intake Total 226 550 Balance 226 550 Meds/Results Medications: Active Medications Generic Name Dose Route Start Last Admin Trade Name Freq PRN Reason Stop Dose Admin Acetaminophen 650 mg 08/28/24 13:56 Acetaminophen 325 Mg Tablet PO Q4H PRN Mild Pain (1-3) or Fever Amlodipine Besylate 10 mg 08/28/24 21:50 08/29/24 03:32 Amlodipine Besylate 10 Mg Tablet PO Not Given HS RENAE Buspirone HCl 10 mg 08/29/24 09:00 08/29/24 09:16 Buspirone Hcl 5 Mg Tablet PO Not Given BID RENAE Epoetin Ricardo-epbx 10,000 units 08/29/24 20:00 08/29/24 10:58 Epoetin Ricardo-Epbx 10,000 Units/Ml Vial IV PUSH 08/29/24 20:01 10,000 units ONCE ONE Administration Albumin Human 50 mls @ 999 mls/hr 08/29/24 06:17 Albutein IVPB 09/28/24 06:16 Q10M PRN HYPOTENSION Labetalol HCl 300 mg 08/28/24 21:50 08/29/24 09:16 Labetalol Hcl 100 Mg Tablet PO Not Given BID COUNT INCLUDES THE [facility] Losartan Potassium 50 mg 08/29/24 09:00 08/29/24 09:16 Losartan Potassium 50 Mg Tablet PO Not Given DAILY COUNT INCLUDES THE [facility] Memantine 5 mg 08/29/24 09:00 08/29/24 09:16 Memantine 5 Mg Tablet PO Not Given BID COUNT INCLUDES THE [facility] Morphine Sulfate 2 mg 08/28/24 21:47 08/29/24 12:23 Morphine Sulfate (*Crx) 2 Mg/Ml Inj IV PUSH 2 mg Q4H PRN Administration Pain Rated 7-10 Multi-Ingred Cream/Lotion/Oil/Oint 1 applic 08/28/24 21:46 Eucerin Cream 120 Gm Jar TOPICAL PRN PRN dryness Ondansetron HCl 4 mg 08/28/24 13:56 Ondansetron Inj 4 Mg/2 Ml Vial IV PUSH Q4H PRN Nausea Radiology Results: ITS Impressions Chest X-Ray 08/28/24 12:45 IMPRESSION: 1. Mild atelectasis in left lower lung zone. Hip/Pelvis X-Ray 08/28/24 12:46 IMPRESSION: 1. Comminuted intertrochanteric fracture of proximal right femur. 2. Mild right hip osteoarthritis. 3. Bipolar left hip hemiarthroplasty in near-anatomic alignment. Labs Labs: Laboratory Results - last 24 hr 08/28/24 08/29/24 13:02 05:30 WBC 5.9 10.8 H RBC 3.17 L 2.52 L Hgb 9.6 L 7.5 L Hct 29.9 L 23.7 L MCV 94.3 94.0 MCH 30.3 29.8 MCHC 32.1 31.6 L RDW 13.7 13.8 Plt Count 202 177 MPV 8.7 8.6 Immature Gran % (Auto) 1.4 H 0.6 H Neut % (Auto) 66.5 73.5 H Lymph % (Auto) 19.3 15.1 L [place] % (Auto) 9.8 H 9.4 H Eos % (Auto) 2.5 0.9 Baso % (Auto) 0.5 0.5 Lymph # (Auto) 1.14 1.63 [place] # (Auto) 0.6 1.0 H Eos # (Auto) 0.2 0.1 Baso # (Auto) 0.0 0.1 Abs Immat Gran (auto) 0.08 H 0.06 H Absolute Neuts (auto) 3.9 7.9 H Absolute Nucleated RBC 0.000 0.000 Nucleated RBC % 0.0 0.0 PT 12.7 INR 0.9 Sodium 135 L 133 L Potassium 4.8 5.2 H Chloride 90 L 92 L Carbon Dioxide 33 H 31 H Anion Gap 12 10 BUN 31 H D 39 H Creatinine 4.80 H 6.50 H Estim Creat Clear Calc 7 5 Estimated GFR 9 L 6 L Glucose 105 107 Calcium 9.7 9.4 Phosphorus 7.1 H Magnesium 1.8 Total Bilirubin 0.6 AST 22 ALT 18 Alkaline Phosphatase 99 Total Protein 7.0 Albumin 3.9 3.5 Hep Bs Antigen Negative Hep Bs Antibody Positive
[2024-08-29] MEDS: busPIRone HCL 5 MG TABLET 10 MG PO (17:08)
[2024-08-29] MEDS: LABETALOL HCL 100 MG TABLET 300 MG PO (17:08)
[2024-08-29] MEDS: MEMANTINE 5 MG TABLET PO (17:08)
[2024-08-29] MEDS: ACETAMINOPHEN 325 MG TABLET 650 MG PO (17:08)
[2024-08-29] MEDS: amLODIPine BESYLATE 10 MG TABLET PO (22:32)
[2024-08-30] VITALS (24 sets, daily range): BP systolic 117–161; BP diastolic 41–90; PULSE 73–94; RESP 14–22; TEMP 36.2–37.2; O2SAT 91–100
--- NOTE | 2024-08-30 06:47 | P.PNIM_ITS ---
Progress Note: A&P Assessment and Plan (1) Intertrochanteric fracture of right femur: Qualifiers: Encounter type: initial encounter Fracture alignment: displaced Fracture type: closed Qualified Code(s): S72.141A - Displaced intertrochanteric fracture of right femur, initial encounter for closed fracture Code(s): S72.141A - Displaced intertrochanteric fracture of right femur, initial encounter for closed fracture Status: Acute Assessment and Plan: Per chart review, patient slid off the toilet landing on her backside resulting in severe right hip pain. She was denying recent falls, however was seen in the ED twice in the last month for falls which resulted in a fractured left wrist and more recently head trauma with abrasions to the forehead. She denies head trauma and LOC with this fall. - Hip/pelvis XR: 1. Comminuted intertrochanteric fracture of proximal right femur. 2. Mild right hip osteoarthritis. 3. Bipolar left hip hemiarthroplasty in near-anatomic alignment. - Analgesics - PT/OT per ortho - Ortho consulted Plan for ORIF right hip with IM nail today with Dr. Yanez (2) End-stage renal disease on hemodialysis: Code(s): N18.6 - End stage renal disease; Z99.2 - Dependence on renal dialysis Status: Acute Assessment and Plan: - Nephrology consulted Continue Tuesday/Tuesday/Tuesday outpatient dialysis schedule - Monitor I&Os, vital signs, neuro status and patient is a fall risk - Monitor serum electrolytes and CBC (3) Anemia of chronic disease: Code(s): D63.8 - Anemia in other chronic diseases classified elsewhere Status: Chronic Assessment and Plan: Related to ESRD. No signs of active bleeding, denies hematemesis, hematuria, hematochezia and melena. - H/H 6.6/20.9 on am labs - unit pRBC ordered - Iron panel and B12/folate ordered - Epogen with HD once Hgb < 10 - Monitor (4) Hypertension: Code(s): I10 - Essential (primary) hypertension Status: Chronic Assessment and Plan: Chronic, continue home medications. - amlodipine 10 mg daily - labetalol 300 mg BID - losartan 50 mg daily - monitor Time Spent With Patient Time with patient: 25 - 35 minutes Subjective Date/time seen: 08/30/24 06:47 Interval history: 83-year-old female with history of stroke, memory loss, end-stage renal disease on hemodialysis, hypertension, and chronic anemia who presented to the emergency department via EMS from [facility] for evaluation of right hip pain after a fall. Patient's is pleasant lying comfortably in bed. She remains AOx3 and pleasantly confused. She states her pain is well controlled on current regimen. She had a hemoglobin was 6.6 on a.m. labs requiring a blood transfusion. Blood ordered and surgery updated. She denies chest pain, shortness of breath, nausea/vomiting and abdominal pain. Review of Systems Review of Systems: All systems reviewed & are unremarkable except as noted in HPI and below Exam Narrative: AF HR 89 RR 20 Spo2 96 BP 153/49 General: female in no acute respiratory distress who is nontoxic appearing, lying semi recumbent in bed. HEENT: Normocephalic. Extraocular movement intact. Sclera clear and anicteric. No facial asymmetry. Chest: Lungs are clear to auscultation bilaterally. No wheezes or crackles. CV: Heart was regular rate and rhythm. S1-S2. No murmurs, gallops, or rubs. Abd: Abdomen was soft. Nontender. Nondistended. Positive bowel sounds. No organomegaly or masses. Ext: Right lower extremity is internally rotated and shortened. No clubbing, cyanosis, or edema. 2+ DP pulses bilaterally. Neuro: Patient is alert and oriented x3 (person, place, year) but pleasantly confused with further conversation. Speech is clear. Objective Data Vital Signs Vital Signs: Vital Signs - 24 hr 08/29/24 08:11 08/29/24 08:11 08/29/24 08:24 Temperature 98.6 F Pulse Rate 76 75 Respiratory Rate 18 Blood Pressure 145/36 H 133/46 L Pulse Oximetry 100 Oxygen Delivery Fraction of Inspired Oxygen 100 08/29/24 11:15 08/29/24 11:53 08/29/24 08:30 Temperature 98.4 F Pulse Rate 83 81 75 Respiratory Rate 16 Blood Pressure 122/35 L 123/36 L 138/53 L Pulse Oximetry 100 Oxygen Delivery Fraction of Inspired Oxygen 08/29/24 08:45 08/29/24 09:00 08/29/24 09:15 Temperature Pulse Rate 89 72 52 L Respiratory Rate Blood Pressure 98/35 L 120/27 L 116/75 Pulse Oximetry Oxygen Delivery Fraction of Inspired Oxygen 08/29/24 09:30 08/29/24 09:45 08/29/24 10:00 Temperature Pulse Rate 77 72 79 Respiratory Rate Blood Pressure 107/46 L 123/52 L 104/49 L Pulse Oximetry Oxygen Delivery Fraction of Inspired Oxygen 08/29/24 10:15 08/29/24 10:30 08/29/24 10:45 Temperature Pulse Rate 79 78 81 Respiratory Rate Blood Pressure 115/50 L 129/27 L 152/55 H Pulse Oximetry Oxygen Delivery Fraction of Inspired Oxygen 08/29/24 11:00 08/29/24 11:30 08/29/24 11:39 Temperature Pulse Rate 85 86 82 Respiratory Rate Blood Pressure 115/19 L 102/43 L 101/49 L Pulse Oximetry Oxygen Delivery Fraction of Inspired Oxygen 08/29/24 12:23 08/29/24 14:00 08/29/24 17:08 Temperature 98.1 F Pulse Rate 84 84 Respiratory Rate 18 Blood Pressure 126/73 Pulse Oximetry 100 Oxygen Delivery Room Air Fraction of Inspired Oxygen 08/29/24 16:50 08/29/24 19:40 08/29/24 22:00 Temperature 96.9 F L 98.6 F 98.6 F Pulse Rate 77 74 74 Respiratory Rate 20 18 18 Blood Pressure 101/49 L 140/53 L 140/53 L Pulse Oximetry 100 95 95 Oxygen Delivery Fraction of Inspired Oxygen 08/29/24 20:00 08/30/24 02:00 08/30/24 06:00 Temperature 98.7 F 97.4 F L Pulse Rate 94 88 Respiratory Rate 18 18 Blood Pressure 145/46 H 133/59 L Pulse Oximetry 94 91 Oxygen Delivery Room Air Fraction of Inspired Oxygen Intake/Output Intake/Output: Intake & Output 08/27/24 08/28/24 08/29/24 08/30/24 23:59 23:59 23:59 23:59 Intake Total 226 1150 Output Total 1500 Balance 226 -350 Meds/Results Medications: Active Medications Generic Name Dose Route Start Last Admin Trade Name Freq PRN Reason Stop Dose Admin Acetaminophen 650 mg 08/28/24 13:56 08/29/24 17:08 Acetaminophen 325 Mg Tablet PO 650 mg Q4H PRN Administration Mild Pain (1-3) or Fever Amlodipine Besylate 10 mg 08/28/24 21:50 08/29/24 22:32 Amlodipine Besylate 10 Mg Tablet PO 10 mg HS RENAE Administration Buspirone HCl 10 mg 08/29/24 09:00 08/29/24 17:08 Buspirone Hcl 5 Mg Tablet PO 10 mg BID RENAE Administration Albumin Human 50 mls @ 999 mls/hr 08/29/24 06:17 Albutein IVPB 09/28/24 06:16 Q10M PRN HYPOTENSION Lactated Ringer's 1,000 mls @ 30 mls/hr 08/29/24 16:50 Lr - Lactated Ringers Iv IV CONT .Q24H RENAE Labetalol HCl 300 mg 08/28/24 21:50 08/29/24 17:08 Labetalol Hcl 100 Mg Tablet PO 300 mg BID RENAE Administration Losartan Potassium 50 mg 08/29/24 09:00 08/29/24 09:16 Losartan Potassium 50 Mg Tablet PO Not Given DAILY RENAE Memantine 5 mg 08/29/24 09:00 08/29/24 17:08 Memantine 5 Mg Tablet PO 5 mg BID RENAE Administration Morphine Sulfate 2 mg 08/28/24 21:47 08/29/24 12:23 Morphine Sulfate (*Crx) 2 Mg/Ml Inj IV PUSH 2 mg Q4H PRN Administration Pain Rated 7-10 Multi-Ingred Cream/Lotion/Oil/Oint 1 applic 08/28/24 21:46 Eucerin Cream 120 Gm Jar TOPICAL PRN PRN dryness Ondansetron HCl 4 mg 08/28/24 13:56 Ondansetron Inj 4 Mg/2 Ml Vial IV PUSH Q4H PRN Nausea Radiology Results: ITS Impressions Chest X-Ray 08/28/24 12:45 IMPRESSION: 1. Mild atelectasis in left lower lung zone. Hip/Pelvis X-Ray 08/28/24 12:46 IMPRESSION: 1. Comminuted intertrochanteric fracture of proximal right femur. 2. Mild right hip osteoarthritis. 3. Bipolar left hip hemiarthroplasty in near-anatomic alignment. Labs Labs: Laboratory Results - last 24 hr 08/29/24 05:30 Hep Bs Antigen Negative Hep Bs Antibody Positive Quality VTE Prophylaxis VTE prophylaxis: mechanical ordered
[2024-08-30 08:41] LABS: Basophils Absolute Auto 0.1 K/mm3 (0.0-0.1); Basophils Percent Auto 0.7 % (0.2-1.2); Eosinophils Absolute Auto 0.2 K/mm3 (0-0.3); Eosinophils Percent Auto 1.8 % (0-4.4); Immature Granulocyte Absolute 0.17 K/mm3 (0.00-0.031); Immature Granulocyte Percent A 1.6 % (0-0.5); Lymphocytes Absolute Auto 1.64 K/mm3 (0.9-3.2); Lymphocytes Percent Auto 15.7 % (18.3-44.2); Mean Corpuscular HGB Conc 31.6 g/dl (32-36); Mean Corpuscular Hemoglobin 30.7 pg (26-34); Mean Corpuscular Volume 97.2 fl (80-100); Mean Platelet Volume 9.2 fl (7.4-10.4); Monocytes Absolute Auto 1.3 K/mm3 (0.1-0.6); Monocytes Percent Auto 12.7 % (2.6-8.5); Neutrophils Percent Auto 67.5 % (45.5-73.1); Platelet Count Result 156 k/mm3 (150-375); Red Blood Count 2.15 M/mm3 (4.2-5.4); Red Cell Distribution Width 14.2 % (11.5-14.5); White Blood Count 10.4 K/mm3 (4.5-10.0)
[2024-08-30 08:44] LABS: Hematocrit 20.9 % (37.0-47.0); Hemoglobin 6.6 g/dL (12.0-15.0)
[2024-08-30 08:58] LABS: Alanine Aminotransferase 33 U/L (6-35); Albumin Level 3.7 g/dL (3.5-5.1); Alkaline Phosphatase 95 U/L (38-126); Anion Gap 14 mmol/L (4-12); Aspartate Amino Transferase 44 U/L (14-36); Bilirubin,Total 0.6 mg/dL (0.2-1.3); Blood Urea Nitrogen 28 mg/dL (7-17); Calcium 9.3 mg/dL (8.4-10.2); Carbon Dioxide 24 mmol/L (22-30); Chloride 97 mmol/L (98-107); Estimated CRCL calculation 9 ml/min; Estimated Glomerular Filt Rate 11; Glucose 87 mg/dL (65-110); Potassium 4.2 mmol/L (3.4-5.0); Sodium 135 mmol/L (137-145)
[2024-08-30] MEDS: MORPHINE SULFATE (*CRX) 2 MG/ML INJ IV PUSH ×2 (09:36→14:10)
[2024-08-30 09:48] LABS: Anisocytosis 1+; Platelet Estimate Adequate (Adequate); Schistocytes None Seen
[2024-08-30] MEDS: SODIUM CHLORIDE 0.9% IV 250 ML 30 ML IV CONT (10:35)
[2024-08-30 11:06] LABS: Iron 49 ug/dL (37-170)
[2024-08-30 11:15] LABS: Percent Iron Saturation 27 % (20-50)
[2024-08-30 12:24] LABS: Folic Acid 11.2 ng/mL (2.76->20)
--- NOTE | 2024-08-30 13:01 | P.PNNP_ITS ---
Progress Note: A&P Assessment and Plan (1) End stage renal disease: Code(s): N18.6 - End stage renal disease Status: Chronic Assessment and Plan: * HD tomorrow * continue Tuesday/Tuesday/Tuesday outpatient dialysis schedule while hospitalized * follow electrolytes, volume status, and clearance (2) Intertrochanteric fracture of right femur: Qualifiers: Encounter type: initial encounter Fracture type: closed Fracture alignment: displaced Qualified Code(s): S72.141A - Displaced intertrochanteric fracture of right femur, initial encounter for closed fracture Code(s): S72.141A - Displaced intertrochanteric fracture of right femur, initial encounter for closed fracture Status: Acute Assessment and Plan: * as noted by admission imaging * Orthopedic recommendations noted * will likely need surgical intervention (3) Anemia: Code(s): D64.9 - Anemia, unspecified Status: Chronic Assessment and Plan: * related to ESRD and acute trauma from fall * Retacrit with HD * PRBC transfusion per protocol * follow trend of H/H (4) Hypertension: Code(s): I10 - Essential (primary) hypertension Status: Chronic Assessment and Plan: * can fluctuate to extremes * resumed on home medications * pain medications likely playing a role * follow trend of hemodynamics. (5) Dementia: Code(s): F03.90 - Unspecified dementia, unspecified severity, without behavioral disturbance, psychotic disturbance, mood disturbance, and anxiety Status: Chronic Assessment and Plan: * appears at baseline mentation * continue supportive therapy Will continue to follow. Subjective Date/time seen: 08/30/24 13:01 Interval history: Follow-up for end stage renal disease on hemodialysis. Tolerated dialysis treatment yesterday without any issues or problems; low H/H noted this AM so PRBC transfusion done; tentatively on schedule for surgery this afternoon by Orthopedics; no acute events overnight or earlier this morning to report; mentation appears stable/at baseline. Exam Narrative: General: elderly and frail female in mild distress (secondary to pain) Heart: normal S1 and S2; no rub Lungs: decreased at bases Abdomen: soft, nontender, nondistended, positive bowel sounds Extremities: no cyanosis or clubbing; no edema Skin: warm and intact Objective Data Vital Signs Vital Signs: Vital Signs 08/30/24 12:50 98.2 F 87 20 154/54 H 94 08/30/24 11:50 97.8 F 89 20 153/49 H 96 08/30/24 10:50 98.8 F 80 16 157/44 H 94 08/30/24 08:00 Room Air 08/30/24 10:34 98.9 F 84 20 158/47 H 94 08/30/24 09:34 92 Room Air 08/30/24 09:12 97.5 F L 80 22 H 129/53 L 93 08/30/24 06:00 97.4 F L 88 18 133/59 L 91 08/30/24 02:00 98.7 F 94 18 145/46 H 94 08/29/24 20:00 Room Air 08/29/24 22:00 98.6 F 74 18 140/53 L 95 08/29/24 19:40 98.6 F 74 18 140/53 L 95 08/29/24 16:50 96.9 F L 77 20 101/49 L 100 08/29/24 17:08 84 Intake/Output Intake/Output: Intake & Output 08/27/24 08/28/24 08/29/24 08/30/24 23:59 23:59 23:59 23:59 Intake Total 226 1150 500 Output Total 1500 Balance 226 -350 500 Meds/Results Medications: Active Medications Generic Name Dose Route Start Last Admin Trade Name Freq PRN Reason Stop Dose Admin Acetaminophen 650 mg 08/28/24 13:56 08/29/24 17:08 Acetaminophen 325 Mg Tablet PO 650 mg Q4H PRN Administration Mild Pain (1-3) or Fever Amlodipine Besylate 10 mg 08/28/24 21:50 08/29/24 22:32 Amlodipine Besylate 10 Mg Tablet PO 10 mg HS RENAE Administration Buspirone HCl 10 mg 08/29/24 09:00 08/30/24 08:39 Buspirone Hcl 5 Mg Tablet PO Not Given BID RENAE Fentanyl Citrate 25 mcg 08/30/24 15:23 Fentanyl Citrate Inj (*Crx) 100 Mcg/2 Ml Vial IV PUSH Q2M PRN Pain Albumin Human 50 mls @ 999 mls/hr 08/29/24 06:17 Albutein IVPB 09/28/24 06:16 Q10M PRN HYPOTENSION Sodium Chloride 250 mls @ 30 mls/hr 08/30/24 08:44 08/30/24 10:35 Normal Saline Iv IV CONT 08/30/24 17:03 30 mls/hr .Q8H20M STA Administration Lactated Ringer's 1,000 mls @ 30 mls/hr 08/30/24 15:25 Lr - Lactated Ringers Iv IV CONT .Q24H RENAE Sodium Chloride 500 mls @ 30 mls/hr 08/30/24 15:45 08/30/24 15:00 Normal Saline Iv IV CONT 30 mls/hr .[id number] RENAE Administration Labetalol HCl 300 mg 08/28/24 21:50 08/30/24 08:39 Labetalol Hcl 100 Mg Tablet PO Not Given BID RENAE Losartan Potassium 50 mg 08/29/24 09:00 08/30/24 08:40 Losartan Potassium 50 Mg Tablet PO Not Given DAILY RENAE Memantine 5 mg 08/29/24 09:00 08/30/24 08:40 Memantine 5 Mg Tablet PO Not Given BID RENAE Morphine Sulfate 2 mg 08/28/24 21:47 08/30/24 14:10 Morphine Sulfate (*Crx) 2 Mg/Ml Inj IV PUSH 2 mg Q4H PRN Administration Pain Rated 7-10 Multi-Ingred Cream/Lotion/Oil/Oint 1 applic 08/28/24 21:46 Eucerin Cream 120 Gm Jar TOPICAL PRN PRN dryness Ondansetron HCl 4 mg 08/28/24 13:56 Ondansetron Inj 4 Mg/2 Ml Vial IV PUSH Q4H PRN Nausea Ondansetron HCl 4 mg 08/30/24 15:23 Ondansetron Inj 4 Mg/2 Ml Vial IV PUSH ONCE PRN Nausea Radiology Results: ITS Impressions Chest X-Ray 08/28/24 12:45 IMPRESSION: 1. Mild atelectasis in left lower lung zone. Hip/Pelvis X-Ray 08/28/24 12:46 IMPRESSION: 1. Comminuted intertrochanteric fracture of proximal right femur. 2. Mild right hip osteoarthritis. 3. Bipolar left hip hemiarthroplasty in near-anatomic alignment. Labs Labs: Laboratory Tests 08/30/24 08:24 WBC 10.4 H Hgb 6.6 L* Hct 20.9 L* Calcium 9.3 Total Bilirubin 0.6 AST 44 H ALT 33 Alkaline Phosphatase 95 Total Protein 6.0 L Albumin 3.7
[2024-08-30 14:34] LABS: Hematocrit 25.6 % (37.0-47.0); Hemoglobin 8.4 g/dL (12.0-15.0); Mean Corpuscular HGB Conc 32.8 g/dl (32-36); Mean Corpuscular Hemoglobin 30.4 pg (26-34); Mean Corpuscular Volume 92.8 fl (80-100); Mean Platelet Volume 8.6 fl (7.4-10.4); Platelet Count Result 142 k/mm3 (150-375); Red Blood Count 2.76 M/mm3 (4.2-5.4); Red Cell Distribution Width 13.9 % (11.5-14.5); White Blood Count 10.9 K/mm3 (4.5-10.0)
--- NOTE | 2024-08-30 14:53 | WPDHPUPDATE1 ---
History and Physical Update Update Date/Time: 08/30/24 14:53 Hemoglobin improved over 8 after 1 packed unit of blood. History and Physical has been reviewed, including an updated exam of the patient. There are NO changes in the patient's condition. Risks, benefits, and alternatives have been discussed and questions answered. Patient agrees to proceed with procedure.
[2024-08-30] MEDS: TRANEXAMIC ACID 1,000MG/ISO100 1,000 MG/100 ML BAG 200 MG IVPB (15:00)
[2024-08-30] MEDS: SODIUM CHLORIDE 0.9% IV 500 ML 30 ML IV CONT (15:00)
--- NOTE | 2024-08-30 15:00 | PC.NURSE ---
Patient off floor to OR via bed. Report given to Chris BOSS.
--- NOTE | 2024-08-30 15:21 | WPDANESEPPF ---
Anes - Initial Pre Proc Eval Procedure: Operation Date: 08/30/24 14:30 Proposed Procedures p Right Intertrochanteric Nail - Pawan Yanez MD Date/Time: 08/30/24 15:21 Surgeon: Trish Nichole PA-C Pre Op Diagnosis: Hip Fracture Right Patient Data Age: 83 Gender: F Height: 1.63 m Weight: 60.1 kg Last Vital Signs Temp 36.9 C 08/30/24 13:35 Pulse 84 08/30/24 13:35 Resp 20 08/30/24 13:35 BP 161/44 H 08/30/24 13:35 Pulse Ox 96 08/30/24 13:35 O2 Del Method Room Air 08/30/24 09:34 FiO2 100 08/29/24 08:11 Allergies Allergy/AdvReac Type Severity Reaction Status Date / Time No Known Allergies Allergy Verified 08/28/24 15:30 Home Medications Medication Instructions Recorded Confirmed Type buspirone 5 mg tablet 10 mg PO BID anxiety 01/24/23 08/28/24 History labetalol 200 mg tablet 300 mg PO BID 08/27/23 08/28/24 History memantine 5 mg tablet 5 mg PO BID 08/27/23 08/28/24 History amlodipine 10 mg tablet 10 mg PO HS 12/14/23 08/28/24 History losartan 50 mg tablet 50 mg PO DAILY 12/14/23 08/28/24 History cefdinir 300 mg capsule 300 mg PO DAILY #4 caps 12/16/23 08/28/24 Rx acetaminophen 325 mg tablet 650 mg PO Q4H PRN minor pain, 07/22/24 08/28/24 History fever greater than 100.4 lanolin alcohols-mineral 1 applic topical PRN PRN dryness 07/22/24 08/28/24 History oil-w.petrolatum-ceresin topical cream (Eucerin topical cream) loperamide 2 mg capsule 2 mg PO PRN 07/22/24 08/28/24 History Laboratory Tests 08/30/24 08/30/24 08/30/24 08:24 09:09 14:30 WBC 10.4 H K/mm3 10.9 H K/mm3 (4.5-10.0) (4.5-10.0) RBC 2.15 L M/mm3 2.76 L M/mm3 (4.2-5.4) (4.2-5.4) Hgb 6.6 L* g/dL 8.4 L g/dL (12.0-15.0) (12.0-15.0) Hct 20.9 L* % 25.6 L % (37.0-47.0) (37.0-47.0) MCV 97.2 fl 92.8 fl (80-100) (80-100) MCH 30.7 pg 30.4 pg (26-34) (26-34) MCHC 31.6 L g/dl 32.8 g/dl (32-36) (32-36) RDW 14.2 % 13.9 % (11.5-14.5) (11.5-14.5) Plt Count 156 k/mm3 142 L k/mm3 (150-375) (150-375) MPV 9.2 fl 8.6 fl (7.4-10.4) (7.4-10.4) Immature Gran % (Auto) 1.6 H % (0-0.5) Neut % (Auto) 67.5 % (45.5-73.1) Lymph % (Auto) 15.7 L % (18.3-44.2) Harris % (Auto) 12.7 H % (2.6-8.5) Eos % (Auto) 1.8 % (0-4.4) Baso % (Auto) 0.7 % (0.2-1.2) Lymph # (Auto) 1.64 K/mm3 (0.9-3.2) Harris # (Auto) 1.3 H K/mm3 (0.1-0.6) Eos # (Auto) 0.2 K/mm3 (0-0.3) Baso # (Auto) 0.1 K/mm3 (0.0-0.1) Abs Immat Gran (auto) 0.17 H K/mm3 (0.00-0.031) Absolute Neuts (auto) 7.0 H K/mm3 (1.3-6.7) Absolute Nucleated RBC 0.000 K/mm3 (0.0-0.012) Nucleated RBC % 0.0 % (0.0-0.2) Platelet Estimate Adequate (Adequate) Anisocytosis 1+ Schistocytes None seen Sodium 135 L mmol/L (137-145) Potassium 4.2 mmol/L (3.4-5.0) Chloride 97 L mmol/L (98-107) Carbon Dioxide 24 mmol/L (22-30) Anion Gap 14 H mmol/L (4-12) BUN 28 H D mg/dL (7-17) Creatinine 3.90 H mg/dL (0.7-1.0) Estim Creat Clear Calc 9 ml/min Estimated GFR 11 L (59 - ) Glucose 87 mg/dL (65-110) Calcium 9.3 mg/dL (8.4-10.2) Iron 49 ug/dL (37-170) TIBC 184 L ug/dL (261-462) % Saturation 27 % (20-50) Total Bilirubin 0.6 mg/dL (0.2-1.3) AST 44 H U/L (14-36) ALT 33 U/L (6-35) Alkaline Phosphatase 95 U/L (38-126) Total Protein 6.0 L g/dL (6.3-8.2) Albumin 3.7 g/dL (3.5-5.1) Vitamin B12 888.0 pg/mL (239-931) Folate 11.2 ng/mL (2.76->20) Blood Type A Negative Antibody Screen Negative Crossmatch See Detail Patient hx anesthesia problems: none Family hx anesthesia problems: none Results Review: All pre-operative results and documents have been reviewed as part of the pre-operative evaluation. FORMERLY [facility], [facility] Past Medical History Medical History Anemia of chronic disease Cerebrovascular accident End-stage renal disease on hemodialysis Gout Hypertension Memory loss Surgical History Surgical History History of appendectomy History of cataract extraction History of cholecystectomy History of colonoscopy History of oophorectomy History of parathyroidectomy History of partial replacement of left hip joint using bipolar prosthesis Family History Family History Father Family history of elevated blood lipids Hypertension Sibling Family history of elevated blood lipids Hypertension Cancer of jaw Mother Myocardial infarction Social History Social History Social History: Surrogate medical decision maker: Agnes Monroy and Stacy Sheppard, daughters. Code status: Do not resuscitate. Smoking status: Unknown if ever smoked Second hand tobacco smoke exposure: No Alcohol intake: former Substance use: never Substance use type: does not use Do You Feel Safe in your Home?: Yes Lack of Transportation: No Lack of Food: Never True Current Housing: I Have Housing Concerned About Future Housing: No Difficulty Paying Gas/Electric Bills: No Difficulty Paying for Meds: No Currently Unemployed: No Education: Bachelor's Degree Difficulty w/ Childcare or Family Care: No Additional living arrangements comments: . Has 2 children. Resident of [facility] since 09/01/23. Additional occupation/education comments: Retired. Spiritual care concerns: No Anes - Eval Final PreProcedure Day of Procedure 08/30/24 15:21 Patient weight: normal Heart: regular rate and rhythm Lungs: clear to auscultation Airway: Mallampati scale class II Neurological: confused Last oral intake: >/= 8 hours ASA classification: IV Emergent: no Anesthetic plan: proceed Anesthesia type and monitoring: general LMA and standard monitoring Results Review: All pre-operative results and documents have been reviewed as part of the pre-operative evaluation. Informed Consent: The patient's anesthetic plan and its attendant risks and benefits were discussed with the patient/family/POA. Questions were solicited and answers provided to the satisfaction of the patient/family/POA.
[2024-08-30] MEDS: ceFAZolin 2 GM/D5W 50 ML 2 GM/50 ML BAG IVPB (15:45)
--- NOTE | 2024-08-30 16:48 | P.OP_ITS ---
Procedure Note - Detailed Date of Procedure 08/30/24 Pre-op Diagnosis Displaced intertrochanteric hip fracture right. Post-op Diagnosis Same Procedure Performed ORIF displaced right femur intertrochanteric fracture with locked long intram edullary nail. Surgeon Pawan Yanez MD Anesthesia General Description of Procedure The patient was given a general anesthetic, then carefully placed in fracture table. Sterile prep and drape performed in the usual fashion. Sterile curtain was used. Gentle traction was utilized to reduce the fracture. Fluoroscopy was used to confirm anatomic reduction and a proper placement of the implants. A longitudinal incision was created at the tip of the trochanter. The deep fascia was incised. The cannulated awl was used to open the proximal femur. The guidewire was placed across the fracture. The reamer was used to open the canal. The flexible reamers were then used to open the distal canal to 12.5 mm. The gamma nail was placed across the fracture site. A separate incision was made for placement of the cannulated guide sleeve. The guide pin was placed in the center of the femoral head. Appropriate measurement was taken. The pin was over reamed. The screw was placed with excellent purchase. The locking screw was placed through the jig. The jig was removed. The wound was irrigated. The deep fascia was closed with #1 Vicryl suture followed by 2-0 Vicryl suture and jocelyn. Sterile dressing was applied. The patient was transferred to the rec overy room in stable condition. There were no complications. Implants Arthrex ES trochanteric nail right, 11 mm x 39 cm x 130?. Telescoping lag screw 10.5 x 90 mm. Cortical screw captured 5 x 32 mm Estimated Blood Loss 200 Drains No Packing No Pathology None sent Complications No immediate complications Condition Stable Disposition PACU [facility] Billing Surgery - Charge Forward: Surgery Billing
--- NOTE | 2024-08-30 18:33 | PC.NURSE ---
Patient returned from PACU via bed. Report received from Nancy BOSS. Family updated and no patient complaints at this time.
[2024-08-30] MEDS: SODIUM CHLORIDE 0.9% IV 1,000 ML 125 ML IV CONT (18:41)
[2024-08-30] MEDS: amLODIPine BESYLATE 10 MG TABLET PO (20:36)
[2024-08-31] VITALS (26 sets, daily range): BP systolic 90–154; BP diastolic 33–62; PULSE 67–95; RESP 16–18; TEMP 36.2–37.1; O2SAT 90–95
[2024-08-31] MEDS: ACETAMINOPHEN 325 MG TABLET 650 MG PO ×5 (05:50→21:39)
[2024-08-31 05:57] LABS: Alanine Aminotransferase 94 U/L (6-35); Albumin Level 3.3 g/dL (3.5-5.1); Alkaline Phosphatase 230 U/L (38-126); Anion Gap 17 mmol/L (4-12); Aspartate Amino Transferase 135 U/L (14-36); Bilirubin,Total 0.6 mg/dL (0.2-1.3); Blood Urea Nitrogen 43 mg/dL (7-17); Calcium 9.1 mg/dL (8.4-10.2); Carbon Dioxide 21 mmol/L (22-30); Chloride 98 mmol/L (98-107); Estimated CRCL calculation 6 ml/min; Estimated Glomerular Filt Rate 8; Glucose 111 mg/dL (65-110); Potassium 4.8 mmol/L (3.4-5.0); Sodium 136 mmol/L (137-145)
[2024-08-31 06:15] LABS: Basophils Percent Auto 0.2 % (0.2-1.2); Hematocrit 23.4 % (37.0-47.0); Hemoglobin 7.5 g/dL (12.0-15.0); Immature Granulocyte Absolute 0.22 K/mm3 (0.00-0.031); Immature Granulocyte Percent A 1.7 % (0-0.5); Lymphocytes Absolute Auto 0.89 K/mm3 (0.9-3.2); Lymphocytes Percent Auto 6.8 % (18.3-44.2); Mean Corpuscular HGB Conc 32.1 g/dl (32-36); Mean Corpuscular Hemoglobin 30.4 pg (26-34); Mean Corpuscular Volume 94.7 fl (80-100); Monocytes Absolute Auto 1.2 K/mm3 (0.1-0.6); Monocytes Percent Auto 9.1 % (2.6-8.5); Neutrophils Absolute Auto 10.7 K/mm3 (1.3-6.7); Neutrophils Percent Auto 82.2 % (45.5-73.1); Platelet Count Result 172 k/mm3 (150-375); Red Blood Count 2.47 M/mm3 (4.2-5.4); Red Cell Distribution Width 13.9 % (11.5-14.5)
--- NOTE | 2024-08-31 06:49 | PM.IMPN ---
Progress Note: A&P Assessment and Plan (1) Intertrochanteric fracture of right femur: Qualifiers: Encounter type: initial encounter Fracture alignment: displaced Fracture type: closed Qualified Code(s): S72.141A - Displaced intertrochanteric fracture of right femur, initial encounter for closed fracture Code(s): S72.141A - Displaced intertrochanteric fracture of right femur, initial encounter for closed fracture Status: Acute Assessment and Plan: Per chart review, patient slid off the toilet landing on her backside resulting in severe right hip pain. She was denying recent falls, however was seen in the ED twice in the last month for falls which resulted in a fractured left wrist and more recently head trauma with abrasions to the forehead. She denies head trauma and LOC with this fall. - Hip/pelvis XR: 1. Comminuted intertrochanteric fracture of proximal right femur. 2. Mild right hip osteoarthritis. 3. Bipolar left hip hemiarthroplasty in near-anatomic alignment. - Analgesics - PT/OT, per ortho weight bearing as tolerated - Ortho consulted S/p ORIF displaced right femur intertrochanteric fracture with locked long intramedullary nail with Dr. Yanez (2) End-stage renal disease on hemodialysis: Code(s): N18.6 - End stage renal disease; Z99.2 - Dependence on renal dialysis Status: Acute Assessment and Plan: - Nephrology consulted Continue Tuesday/Tuesday/Tuesday outpatient dialysis schedule - Monitor I&Os, vital signs, neuro status and patient is a fall risk - Monitor serum electrolytes and CBC (3) Anemia of chronic disease: Code(s): D63.8 - Anemia in other chronic diseases classified elsewhere Status: Chronic Assessment and Plan: Related to ESRD. No signs of active bleeding, denies hematemesis, hematuria, hematochezia and melena. - H/H 7.5/23.4 on am labs - 08/30 required a unit pRBC for H/H 6.6/20.9, repeat H/H 8.4/25.6 - Iron panel and B12/folate ordered - Epogen with HD once Hgb < 10 - Monitor (4) Hypertension: Code(s): I10 - Essential (primary) hypertension Status: Chronic Assessment and Plan: Chronic, continue home medications. - amlodipine 10 mg daily - labetalol 300 mg BID - losartan 50 mg daily - monitor Time Spent With Patient Time with patient: 25 - 35 minutes Subjective Date/time seen: 08/31/24 06:49 Interval history: 83-year-old female with history of stroke, memory loss, end-stage renal disease on hemodialysis, hypertension, and chronic anemia who presented to the emergency department via EMS from [facility] for evaluation of right hip pain after a fall. Patient is pleasant lying comfortably in bed after dialysis. She has no complaints at this time saying that pain is well controlled on current regimen. She denies chest pain, shortness of breath, nausea/vomiting and abdominal pain. Review of Systems Review of Systems: All systems reviewed & are unremarkable except as noted in HPI and below Exam Narrative: AF HR 88 RR 18 SpO2 93 BP 153/57 General: female in no acute respiratory distress who is nontoxic appearing, lying semi recumbent in bed. HEENT: Normocephalic. Extraocular movement intact. Sclera clear and anicteric. No facial asymmetry. Chest: Lungs are clear to auscultation bilaterally. No wheezes or crackles. CV: Heart was regular rate and rhythm. S1-S2. No murmurs, gallops, or rubs. Abd: Abdomen was soft. Nontender. Nondistended. Positive bowel sounds. No organomegaly or masses. Ext: Right lower extremity has clean dry and intact surgical dressing with no noted bruising. Mild edema to the upper thigh. No clubbing, cyanosis. 2+ DP pulses bilaterally. Neuro: Patient is alert and oriented x3 (person, place, year) but pleasantly confused with further conversation. Speech is clear. Objective Data Vital Signs Vital Signs: Vital Signs - 24 hr 08/30/24 09:12 08/30/24 09:34 08/30/24 10:34 Temperature 97.5 F L 98.9 F Pulse Rate 80 84 Respiratory Rate 22 H 20 Blood Pressure 129/53 L 158/47 H Pulse Oximetry 93 92 94 Oxygen Delivery Room Air Oxygen Flow Rate 08/30/24 08:00 08/30/24 10:50 08/30/24 11:50 Temperature 98.8 F 97.8 F Pulse Rate 80 89 Respiratory Rate 16 20 Blood Pressure 157/44 H 153/49 H Pulse Oximetry 94 96 Oxygen Delivery Room Air Oxygen Flow Rate 08/30/24 12:50 08/30/24 13:15 08/30/24 13:35 Temperature 98.2 F 97.8 F 98.4 F Pulse Rate 87 89 84 Respiratory Rate 20 20 20 Blood Pressure 154/54 H 153/49 H 161/44 H Pulse Oximetry 94 96 96 Oxygen Delivery Oxygen Flow Rate 08/30/24 15:00 08/30/24 17:05 08/30/24 17:20 Temperature 98.4 F 98 F Pulse Rate 73 88 85 Respiratory Rate 14 20 15 Blood Pressure 120/61 137/47 L 130/57 L Pulse Oximetry 99 100 97 Oxygen Delivery Room Air Simple Face Mask Simple Face Mask Oxygen Flow Rate 8 8 08/30/24 17:35 08/30/24 17:50 08/30/24 18:05 Temperature Pulse Rate 89 88 81 Respiratory Rate 22 H 17 14 Blood Pressure 117/56 L 133/90 126/52 L Pulse Oximetry 93 93 93 Oxygen Delivery Nasal Cannula Nasal Cannula Nasal Cannula Oxygen Flow Rate 3 3 2 08/30/24 18:20 08/30/24 18:26 08/30/24 18:41 Temperature 97.1 F L 97.2 F L Pulse Rate 81 88 87 Respiratory Rate 15 18 16 Blood Pressure 138/48 L 122/44 L 131/41 L Pulse Oximetry 96 92 94 Oxygen Delivery Nasal Cannula Oxygen Flow Rate 2 08/30/24 19:11 08/30/24 20:01 08/30/24 20:00 Temperature 97.8 F 97.8 F Pulse Rate 90 90 Respiratory Rate 18 18 Blood Pressure 143/50 H 143/50 H Pulse Oximetry 93 93 96 Oxygen Delivery Nasal Cannula Oxygen Flow Rate 2 08/30/24 23:59 08/30/24 22:00 08/31/24 04:11 Temperature 97.4 F L 98.3 F Pulse Rate 89 88 Respiratory Rate 18 18 Blood Pressure 155/53 H 143/48 H Pulse Oximetry 97 97 95 Oxygen Delivery Room Air Oxygen Flow Rate Intake/Output Intake/Output: Intake & Output 08/28/24 08/29/24 08/30/24 08/31/24 23:59 23:59 23:59 23:59 Intake Total 226 8889 582 3743 Output Total 1500 50 Balance 226 -627 431 [id number] Meds/Results Medications: Active Medications Generic Name Dose Route Start Last Admin Trade Name Freq PRN Reason Stop Dose Admin Acetaminophen 650 mg 08/28/24 13:56 08/29/24 17:08 Acetaminophen 325 Mg Tablet PO 650 mg Q4H PRN Administration Mild Pain (1-3) or Fever Acetaminophen 650 mg 08/30/24 18:26 08/31/24 05:50 Acetaminophen 325 Mg Tablet PO 650 mg Q6HR RENAE Administration Amlodipine Besylate 10 mg 08/28/24 21:50 08/30/24 20:36 Amlodipine Besylate 10 Mg Tablet PO 10 mg HS RENAE Administration Buspirone HCl 10 mg 08/29/24 09:00 08/30/24 17:09 Buspirone Hcl 5 Mg Tablet PO Not Given BID RENAE Enoxaparin Sodium 30 mg 08/31/24 09:00 Enoxaparin 30 Mg/0.3 Ml Syringe SUB-Q DAILY RENAE Epoetin Ricardo-epbx 20,000 units 08/31/24 20:00 Epoetin Ricardo-Epbx 10,000 Units/Ml Vial IV PUSH 08/31/24 20:01 ONCE ONE Hydroxyzine Pamoate 50 mg 08/30/24 18:26 Hydroxyzine Pamoate 25 Mg Capsule PO Q4H PRN Itching Albumin Human 50 mls @ 999 mls/hr 08/29/24 06:17 Albutein IVPB 09/28/24 06:16 Q10M PRN HYPOTENSION Cefazolin Sodium 2 gm in 50 mls @ 100 mls/hr 08/31/24 00:00 08/31/24 00:30 Ancef 2 Gm/D5w 50 Ml IVPB 08/31/24 16:29 Infused Q8H RENAE Infusion Sodium Chloride 1,000 mls @ 999 mls/hr 08/31/24 06:18 Normal Saline Iv IV CONT 08/31/24 07:18 .Q1H1M ONE Labetalol HCl 300 mg 08/28/24 21:50 08/30/24 17:09 Labetalol Hcl 100 Mg Tablet PO Not Given BID ON LICENSE OF [facility] Losartan Potassium 50 mg 08/29/24 09:00 08/30/24 08:40 Losartan Potassium 50 Mg Tablet PO Not Given DAILY RENAE Memantine 5 mg 08/29/24 09:00 08/30/24 17:09 Memantine 5 Mg Tablet PO Not Given BID ON LICENSE OF [facility] Morphine Sulfate 2 mg 08/28/24 21:47 08/30/24 14:10 Morphine Sulfate (*Crx) 2 Mg/Ml Inj IV PUSH 2 mg Q4H PRN Administration Pain Rated 7-10 Multi-Ingred Cream/Lotion/Oil/Oint 1 applic 08/28/24 21:46 Eucerin Cream 120 Gm Jar TOPICAL PRN PRN dryness Naloxone HCl 0.1 mg 08/30/24 18:26 Naloxone Hcl 0.4 Mg/Ml Vial IV PUSH Q2M PRN Opiate Reversal Ondansetron HCl 4 mg 08/28/24 13:56 Ondansetron Inj 4 Mg/2 Ml Vial IV PUSH Q4H PRN Nausea Ondansetron HCl 4 mg 08/30/24 18:26 Ondansetron Inj 4 Mg/2 Ml Vial IV PUSH Q4H PRN Nausea And Vomiting Polyethylene Glycol 17 gm 08/31/24 09:00 Polyethylene Glycol 3350 17 Gm Powd.Pack PO QAM RENAE Senna/Docusate Sodium 2 tab 08/30/24 18:26 08/30/24 18:40 Senna/Docusate Sodium Tablet PO Not Given BID ON LICENSE OF [facility] Radiology Results: ITS Impressions Chest X-Ray 08/28/24 12:45 IMPRESSION: 1. Mild atelectasis in left lower lung zone. Hip/Pelvis X-Ray 08/28/24 12:46 IMPRESSION: 1. Comminuted intertrochanteric fracture of proximal right femur. 2. Mild right hip osteoarthritis. 3. Bipolar left hip hemiarthroplasty in near-anatomic alignment. Intraoperative X-Ray 08/30/24 17:06 IMPRESSION: 1. Expected appearance post open reduction and internal fixation of a comminuted intertrochanteric fracture the proximal right femur with the fixation in near anatomic alignment. See procedure note for further detail. Labs Labs: Laboratory Results - last 24 hr 08/30/24 08/30/24 08/30/24 08:24 09:09 14:30 WBC 10.4 H 10.9 H RBC 2.15 L 2.76 L Hgb 6.6 L* 8.4 L Hct 20.9 L* 25.6 L MCV 97.2 92.8 MCH 30.7 30.4 MCHC 31.6 L 32.8 RDW 14.2 13.9 Plt Count 156 142 L MPV 9.2 8.6 Immature Gran % (Auto) 1.6 H Neut % (Auto) 67.5 Lymph % (Auto) 15.7 L [place] % (Auto) 12.7 H Eos % (Auto) 1.8 Baso % (Auto) 0.7 Lymph # (Auto) 1.64 [place] # (Auto) 1.3 H Eos # (Auto) 0.2 Baso # (Auto) 0.1 Abs Immat Gran (auto) 0.17 H Absolute Neuts (auto) 7.0 H Absolute Nucleated RBC 0.000 Nucleated RBC % 0.0 Platelet Estimate Adequate Anisocytosis 1+ Schistocytes None seen Sodium 135 L Potassium 4.2 Chloride 97 L Carbon Dioxide 24 Anion Gap 14 H BUN 28 H D Creatinine 3.90 H Estim Creat Clear Calc 9 Estimated GFR 11 L Glucose 87 Calcium 9.3 Iron 49 TIBC 184 L % Saturation 27 Total Bilirubin 0.6 AST 44 H ALT 33 Alkaline Phosphatase 95 Total Protein 6.0 L Albumin 3.7 Vitamin B12 888.0 Folate 11.2 Blood Type A Negative Antibody Screen Negative Crossmatch See Detail 08/31/24 05:23 WBC 13.0 H RBC 2.47 L Hgb 7.5 L Hct 23.4 L MCV 94.7 MCH 30.4 MCHC 32.1 RDW 13.9 Plt Count 172 MPV 9.0 Immature Gran % (Auto) 1.7 H Neut % (Auto) 82.2 H Lymph % (Auto) 6.8 L [place] % (Auto) 9.1 H Eos % (Auto) 0.0 Baso % (Auto) 0.2 Lymph # (Auto) 0.89 L [place] # (Auto) 1.2 H Eos # (Auto) 0.0 Baso # (Auto) 0.0 Abs Immat Gran (auto) 0.22 H Absolute Neuts (auto) 10.7 H Absolute Nucleated RBC 0.000 Nucleated RBC % 0.0 Platelet Estimate Anisocytosis Schistocytes Sodium 136 L Potassium 4.8 Chloride 98 Carbon Dioxide 21 L Anion Gap 17 H BUN 43 H D Creatinine 5.40 H Estim Creat Clear Calc 6 Estimated GFR 8 L Glucose 111 H Calcium 9.1 Iron TIBC % Saturation Total Bilirubin 0.6 AST 135 H ALT 94 H Alkaline Phosphatase 230 H Total Protein 6.0 L Albumin 3.3 L Vitamin B12 Folate Blood Type Antibody Screen Crossmatch Quality VTE Prophylaxis VTE prophylaxis: mechanical ordered and pharmacologic ordered
--- NOTE | 2024-08-31 09:16 | P.PNNP_ITS ---
Progress Note: A&P Assessment and Plan (1) End stage renal disease: Code(s): N18.6 - End stage renal disease Status: Chronic Assessment and Plan: * HD today * continue Tuesday/Tuesday/Tuesday outpatient dialysis schedule while hospitalized * follow electrolytes, volume status, and clearance (2) Intertrochanteric fracture of right femur: Qualifiers: Encounter type: initial encounter Fracture alignment: displaced Fracture type: closed Qualified Code(s): S72.141A - Displaced intertrochanteric fracture of right femur, initial encounter for closed fracture Code(s): S72.141A - Displaced intertrochanteric fracture of right femur, initial encounter for closed fracture Status: Acute Assessment and Plan: * as noted by admission imaging * Orthopedic following * s/p ORIF of displaced right femur intertrochanteric fracture with locked long intramedullary nail (on 08/30) * pain control * PT/OT as tolerated (3) Anemia: Code(s): D64.9 - Anemia, unspecified Status: Chronic Assessment and Plan: * related to ESRD and acute trauma from fall * Retacrit with HD * PRBC transfusion per protocol * follow trend of H/H (4) Hypertension: Code(s): I10 - Essential (primary) hypertension Status: Chronic Assessment and Plan: * can fluctuate to extremes * resumed on home medications * pain medications likely playing a role * follow trend of hemodynamics. (5) Dementia: Code(s): F03.90 - Unspecified dementia, unspecified severity, without behavioral distur bance, psychotic disturbance, mood disturbance, and anxiety Status: Chronic Assessment and Plan: * appears at baseline mentation * continue supportive therapy Will continue to follow. Subjective Date/time seen: 08/31/24 09:16 Interval history: Follow-up for end stage renal disease on hemodialysis. Tolerating dialysis treatment at the time of my visit (seen on HD at 9:00AM); tolerated PRBC transfusion yesterday; s/p operative intervention for her right femur fracture yesterday afternoon and tolerated this procedure reasonably well; remains pleasantly confused currently; no apparent distress noted; no issues overnight or earlier this morning. Exam Narrative: General: elderly and frail female in mild distress (secondary to pain) Heart: normal S1 and S2; no rub Lungs: decreased at bases Abdomen: soft, nontender, nondistended, positive bowel sounds Extremities: no cyanosis or clubbing; no edema Skin: warm and intact Objective Data Vital Signs Vital Signs: Vital Signs Temp Pulse Resp BP Pulse Ox O2 Del Method O2 Flow Rate 08/31/24 09:15 85 143/57 H 08/31/24 09:00 86 146/56 H 08/31/24 08:45 83 132/51 L 08/31/24 08:13 79 127/54 L 08/31/24 07:56 97.9 F 84 16 139/62 92 08/31/24 04:11 98.3 F 88 18 143/48 H 95 08/30/24 22:00 97 Room Air 08/30/24 23:59 97.4 F L 89 18 155/53 H 97 08/30/24 20:00 96 Nasal Cannula 2 08/30/24 20:01 97.8 F 90 18 143/50 H 93 08/30/24 19:11 97.8 F 90 18 143/50 H 93 08/30/24 18:41 97.2 F L 87 16 131/41 L 94 08/30/24 18:26 97.1 F L 88 18 122/44 L 92 08/30/24 18:20 81 15 138/48 L 96 Nasal Cannula 2 08/30/24 18:05 81 14 126/52 L 93 Nasal Cannula 2 08/30/24 17:50 88 17 133/90 93 Nasal Cannula 3 08/30/24 17:35 89 22 H 117/56 L 93 Nasal Cannula 3 08/30/24 17:20 85 15 130/57 L 97 Simple Face Mask 8 08/30/24 17:05 98 F 88 20 137/47 L 100 Simple Face Mask 8 08/30/24 15:00 98.4 F 73 14 120/61 99 Room Air 08/30/24 13:35 98.4 F 84 20 161/44 H 96 08/30/24 13:15 97.8 F 89 20 153/49 H 96 08/30/24 12:50 98.2 F 87 20 154/54 H 94 08/30/24 11:50 97.8 F 89 20 153/49 H 96 Intake/Output Intake/Output: Intake & Output 08/28/24 08/29/24 08/30/24 08/31/24 23:59 23:59 23:59 23:59 Intake Total 226 0143 495 8755 Output Total 1500 50 Balance 226 -755 350 6795 Meds/Results Medications: Active Medications Generic Name Dose Route Start Last Admin Trade Name Freq PRN Reason Stop Dose Admin Acetaminophen 650 mg 08/28/24 13:56 08/29/24 17:08 Acetaminophen 325 Mg Tablet PO 650 mg Q4H PRN Administration Mild Pain (1-3) or Fever Acetaminophen 650 mg 08/30/24 18:26 08/31/24 05:50 Acetaminophen 325 Mg Tablet PO 650 mg Q6HR RENAE Administration Amlodipine Besylate 10 mg 08/28/24 21:50 08/30/24 20:36 Amlodipine Besylate 10 Mg Tablet PO 10 mg HS RENAE Administration Buspirone HCl 10 mg 08/29/24 09:00 08/31/24 10:54 Buspirone Hcl 5 Mg Tablet PO Not Given BID RENAE Enoxaparin Sodium 30 mg 08/31/24 09:00 Enoxaparin 30 Mg/0.3 Ml Syringe SUB-Q DAILY [facility] Hydroxyzine Pamoate 50 mg 08/30/24 18:26 Hydroxyzine Pamoate 25 Mg Capsule PO Q4H PRN Itching Albumin Human 50 mls @ 999 mls/hr 08/29/24 06:17 Albutein IVPB 09/28/24 06:16 Q10M PRN HYPOTENSION Cefazolin Sodium 2 gm in 50 mls @ 100 mls/hr 08/31/24 00:00 08/31/24 00:30 Ancef 2 Gm/D5w 50 Ml IVPB 08/31/24 16:29 Infused Q8H [facility] Infusion Labetalol HCl 300 mg 08/28/24 21:50 08/31/24 10:55 Labetalol Hcl 100 Mg Tablet PO Not Given BID [facility] Losartan Potassium 50 mg 08/29/24 09:00 08/30/24 08:40 Losartan Potassium 50 Mg Tablet PO Not Given DAILY [facility] Memantine 5 mg 08/29/24 09:00 08/31/24 10:55 Memantine 5 Mg Tablet PO Not Given BID [facility] Morphine Sulfate 2 mg 08/28/24 21:47 08/30/24 14:10 Morphine Sulfate (*Crx) 2 Mg/Ml Inj IV PUSH 2 mg Q4H PRN Administration Pain Rated 7-10 Multi-Ingred Cream/Lotion/Oil/Oint 1 applic 08/28/24 21:46 Eucerin Cream 120 Gm Jar TOPICAL PRN PRN dryness Naloxone HCl 0.1 mg 08/30/24 18:26 Naloxone Hcl 0.4 Mg/Ml Vial IV PUSH Q2M PRN Opiate Reversal Ondansetron HCl 4 mg 08/28/24 13:56 Ondansetron Inj 4 Mg/2 Ml Vial IV PUSH Q4H PRN Nausea Ondansetron HCl 4 mg 08/30/24 18:26 Ondansetron Inj 4 Mg/2 Ml Vial IV PUSH Q4H PRN Nausea And Vomiting Polyethylene Glycol 17 gm 08/31/24 09:00 Polyethylene Glycol 3350 17 Gm Powd.Pack PO QAM RENAE Senna/Docusate Sodium 2 tab 08/30/24 18:26 08/31/24 10:55 Senna/Docusate Sodium Tablet PO Not Given BID [facility] Radiology Results: ITS Impressions Chest X-Ray 08/28/24 12:45 IMPRESSION: 1. Mild atelectasis in left lower lung zone. Hip/Pelvis X-Ray 08/28/24 12:46 IMPRESSION: 1. Comminuted intertrochanteric fracture of proximal right femur. 2. Mild right hip osteoarthritis. 3. Bipolar left hip hemiarthroplasty in near-anatomic alignment. Intraoperative X-Ray 08/30/24 17:06 IMPRESSION: 1. Expected appearance post open reduction and internal fixation of a comminuted intertrochanteric fracture the proximal right femur with the fixation in near anatomic alignment. See procedure note for further detail. Labs Labs: Laboratory Tests 08/31/24 05:23 08/31/24 05:23 Calcium 9.1 Total Bilirubin 0.6 AST 135 H ALT 94 H Alkaline Phosphatase 230 H Total Protein 6.0 L Albumin 3.3 L
--- NOTE | 2024-08-31 09:18 | PCPTNOTE ---
Attempted to see for PT evaluation. Pt in dialysis. Will follow.
[2024-08-31] MEDS: EPOETIN ALFA-EPBX 20,000 UNITS/ML VIAL 20000 UNITS IV PUSH (09:56)
--- NOTE | 2024-08-31 10:04 | PCOTNOTE ---
Attempted to see for OT evaluation. Pt in dialysis. Will continue to attempt.
[2024-08-31] MEDS: polyethylene glycoL 3350 17 GM POWD.PACK PO (12:28)
[2024-08-31] MEDS: ceFAZolin 2 GM/D5W 50 ML 2 GM/50 ML BAG IVPB ×3 (12:28→17:36)
[2024-08-31] MEDS: ENOXAPARIN 30 MG/0.3 ML SYRINGE SUB-Q (12:28)
[2024-08-31] MEDS: LOSARTAN POTASSIUM 50 MG TABLET PO (12:29)
--- NOTE | 2024-08-31 13:34 | WPDANESPN ---
Anes - Prog Note Post-Op Date/Time: 08/31/24 13:34 Cardiovascular status: normal Respiratory status: normal Airway patency: baseline Mental status: baseline Post-Op hydration status: normal Vital Signs: Last Vital Signs Temp 36.8 C 08/31/24 12:11 Pulse 89 08/31/24 12:11 Resp 16 08/31/24 12:11 BP 90/35 L 08/31/24 12:11 Pulse Ox 91 08/31/24 12:11 O2 Del Method Room Air 08/31/24 07:50 O2 Flow Rate 2 08/30/24 20:00 FiO2 100 08/29/24 08:11 Pain Score (VAS): 1 I/O: Intake & Output 08/30/24 08/31/24 08/31/24 23:59 07:59 15:59 Intake Total 150 1510 330 Output Total 50 2000 Balance 150 1460 -1670 Laboratory Tests 08/31/24 05:23 08/31/24 05:23 08/30/24 08/30/24 08/31/24 09:09 14:30 05:23 WBC 10.9 H 13.0 H RBC 2.76 L 2.47 L Hgb 8.4 L 7.5 L Hct 25.6 L 23.4 L MCV 92.8 94.7 MCH 30.4 30.4 MCHC 32.8 32.1 RDW 13.9 13.9 Plt Count 142 L 172 MPV 8.6 9.0 Immature Gran % (Auto) 1.7 H Neut % (Auto) 82.2 H Lymph % (Auto) 6.8 L [place] % (Auto) 9.1 H Eos % (Auto) 0.0 Baso % (Auto) 0.2 Lymph # (Auto) 0.89 L [place] # (Auto) 1.2 H Eos # (Auto) 0.0 Baso # (Auto) 0.0 Abs Immat Gran (auto) 0.22 H Absolute Neuts (auto) 10.7 H Absolute Nucleated RBC 0.000 Nucleated RBC % 0.0 Sodium 136 L Potassium 4.8 Chloride 98 Carbon Dioxide 21 L Anion Gap 17 H BUN 43 H D Creatinine 5.40 H Estim Creat Clear Calc 6 Estimated GFR 8 L Glucose 111 H Calcium 9.1 Total Bilirubin 0.6 AST 135 H ALT 94 H Alkaline Phosphatase 230 H Total Protein 6.0 L Albumin 3.3 L Crossmatch See Detail Post-procedural complaints: none Patient Feedback: Patient satisfied with anesthetic care.
[2024-08-31] MEDS: MORPHINE SULFATE (*CRX) 2 MG/ML INJ IV PUSH (15:46)
--- NOTE | 2024-08-31 16:04 | P.PNOP_ITS ---
Progress Note: A&P Assessment and Plan (1) Closed left hip fracture: Qualifiers: Encounter type: initial encounter Qualified Code(s): S72.002A - Fracture of unspecified part of neck of left femur, initial encounter for closed fracture Code(s): S72.002A - Fracture of unspecified part of neck of left femur, initial encounter for closed fracture Status: Acute Assessment and Plan: POD #1 ORIF displaced right femur intertrochanteric fracture with locked long intramedullary nail. Patient progressing well. Typically non-ambulatory. Transfers with Rg lift. No weight bearing restrictions. She will benefit from SNF vs inpatient rehab at discharge. Ordered oral pain medications today. Continue Lovenox for DVT prophylaxis for 30 days. Daily dressing changes with gauze and tape. Ortho instructions: DOS 08/30/24 ORIF displaced right femur intertrochanteric fracture with locked long intramedullary nail. * D/C to SNF/rehab * Xray follow up in 6 weeks. Okay for virtual follow up if it is too dificult for patient to get to the office. Call for more information. * Wound Care: remove jocelyn at 2 weeks post op. Daily dressing changes until healed. * PT: WBAT. (patient typically non-weight bearing however). * DVT prophylaxis: continue Lovenox for 30 days total * Pain medication: Oxycodone 2.5 mg vs Tylenol. Subjective Subjective Date/Time Seen: 08/31/24 16:04 Interval history: Patient complains of pain with movement and immediately following movement. Minimal pain at rest. No numbness or tingling. No other complaints. Nurse attempting IV at the time of my visit. Review of Systems Review of Systems: Pain left hip and leg with movement. Denied pain elsewhere. All systems reviewed & are unremarkable except as noted in HPI and below ROS unobtainable: Yes unobtainable due to medical condition Exam Narrative: Normal weight 85 y/o Female. Resting comfortably in bed. Notes pain. Wearing compression socks bilaterally. Dressing dry and intact with no drainage. Moderate swelling. No Edema. No ecchymosis. No erythema. No hematoma. Range of motion limited due to pain. Calf nontender. Thigh nontender. No varicosities. Distal pulses palpable. Did not wiggle left toes. Objective Data Vital Signs Vital Signs: Vital Signs - 24 hr 10/31/24 17:05 08/30/24 17:20 08/30/24 17:35 Temperature 98 F Pulse Rate 88 85 89 Respiratory Rate 20 15 22 H Blood Pressure 137/47 L 130/57 L 117/56 L Pulse Oximetry 100 97 93 Oxygen Delivery Simple Face Mask Simple Face Mask Nasal Cannula Oxygen Flow Rate 8 8 3 08/30/24 17:50 08/30/24 18:05 08/30/24 18:20 Temperature Pulse Rate 88 81 81 Respiratory Rate 17 14 15 Blood Pressure 133/90 126/52 L 138/48 L Pulse Oximetry 93 93 96 Oxygen Delivery Nasal Cannula Nasal Cannula Nasal Cannula Oxygen Flow Rate 3 2 2 08/30/24 18:26 08/30/24 18:41 08/30/24 19:11 Temperature 97.1 F L 97.2 F L 97.8 F Pulse Rate 88 87 90 Respiratory Rate 18 16 18 Blood Pressure 122/44 L 131/41 L 143/50 H Pulse Oximetry 92 94 93 Oxygen Delivery Oxygen Flow Rate 08/30/24 20:01 08/30/24 20:00 08/30/24 23:59 Temperature 97.8 F 97.4 F L Pulse Rate 90 89 Respiratory Rate 18 18 Blood Pressure 143/50 H 155/53 H Pulse Oximetry 93 96 97 Oxygen Delivery Nasal Cannula Oxygen Flow Rate 2 08/30/24 22:00 08/31/24 04:11 08/31/24 07:56 Temperature 98.3 F 97.9 F Pulse Rate 88 84 Respiratory Rate 18 16 Blood Pressure 143/48 H 139/62 Pulse Oximetry 97 95 92 Oxygen Delivery Room Air Oxygen Flow Rate 08/31/24 08:13 08/31/24 08:45 08/31/24 09:00 Temperature Pulse Rate 79 83 86 Respiratory Rate Blood Pressure 127/54 L 132/51 L 146/56 H Pulse Oximetry Oxygen Delivery Oxygen Flow Rate 08/31/24 09:30 08/31/24 09:45 08/31/24 10:00 Temperature Pulse Rate 89 86 87 Respiratory Rate Blood Pressure 141/46 H 136/48 L 154/55 H Pulse Oximetry Oxygen Delivery Oxygen Flow Rate 08/31/24 11:00 08/31/24 11:15 08/31/24 11:30 Temperature Pulse Rate 93 95 89 Respiratory Rate Blood Pressure 126/48 L 127/53 L 143/58 H Pulse Oximetry Oxygen Delivery Oxygen Flow Rate 08/31/24 11:43 08/31/24 11:48 08/31/24 07:50 Temperature 98.2 F Pulse Rate 84 88 Respiratory Rate 18 Blood Pressure 131/37 L 153/57 H Pulse Oximetry 93 Oxygen Delivery Room Air Oxygen Flow Rate 08/31/24 08:30 08/31/24 09:15 08/31/24 10:15 Temperature Pulse Rate 80 85 85 Respiratory Rate Blood Pressure 147/57 H 143/57 H 151/57 H Pulse Oximetry Oxygen Delivery Oxygen Flow Rate 08/31/24 10:30 08/31/24 10:45 08/31/24 12:11 Temperature 98.2 F Pulse Rate 83 81 89 Respiratory Rate 16 Blood Pressure 132/55 L 140/53 L 90/35 L Pulse Oximetry 91 Oxygen Delivery Oxygen Flow Rate 08/31/24 13:35 08/31/24 14:20 08/31/24 14:41 Temperature Pulse Rate Respiratory Rate Blood Pressure 142/60 H Pulse Oximetry Oxygen Delivery Room Air Room Air Oxygen Flow Rate Intake/Output Intake/Output: Intake & Output 08/28/24 08/29/24 08/30/24 08/31/24 23:59 23:59 23:59 23:59 Intake Total 226 0262 797 5684 Output Total 1500 2050 Balance 226 -350 500 -210 Meds/Results Medications: Active Medications Generic Name Dose Route Start Last Admin Trade Name Freq PRN Reason Stop Dose Admin Acetaminophen 650 mg 08/28/24 13:56 08/29/24 17:08 Acetaminophen 325 Mg Tablet PO 650 mg Q4H PRN Administration Mild Pain (1-3) or Fever Acetaminophen 650 mg 08/30/24 18:26 08/31/24 12:29 Acetaminophen 325 Mg Tablet PO 650 mg Q6HR RENAE Administration Amlodipine Besylate 10 mg 08/28/24 21:50 08/30/24 20:36 Amlodipine Besylate 10 Mg Tablet PO 10 mg HS RENAE Administration Buspirone HCl 10 mg 08/29/24 09:00 08/31/24 10:54 Buspirone Hcl 5 Mg Tablet PO Not Given BID RENAE Enoxaparin Sodium 30 mg 08/31/24 09:00 08/31/24 12:28 Enoxaparin 30 Mg/0.3 Ml Syringe SUB-Q 30 mg DAILY RENAE Administration Hydroxyzine Pamoate 50 mg 08/30/24 18:26 Hydroxyzine Pamoate 25 Mg Capsule PO Q4H PRN Itching Albumin Human 50 mls @ 999 mls/hr 08/29/24 06:17 Albutein IVPB 09/28/24 06:16 Q10M PRN HYPOTENSION Cefazolin Sodium 2 gm in 50 mls @ 100 mls/hr 08/31/24 00:00 08/31/24 13:19 Ancef 2 Gm/D5w 50 Ml IVPB 08/31/24 16:29 Infused Q8H RENAE Infusion Labetalol HCl 300 mg 08/28/24 21:50 08/31/24 10:55 Labetalol Hcl 100 Mg Tablet PO Not Given BID [facility] Losartan Potassium 50 mg 08/29/24 09:00 08/31/24 12:29 Losartan Potassium 50 Mg Tablet PO 50 mg DAILY [facility] Administration Memantine 5 mg 08/29/24 09:00 08/31/24 10:55 Memantine 5 Mg Tablet PO Not Given BID [facility] Morphine Sulfate 2 mg 08/28/24 21:47 08/31/24 15:46 Morphine Sulfate (*Crx) 2 Mg/Ml Inj IV PUSH 2 mg Q4H PRN Administration Pain Rated 7-10 Multi-Ingred Cream/Lotion/Oil/Oint 1 applic 08/28/24 21:46 Eucerin Cream 120 Gm Jar TOPICAL PRN PRN dryness Naloxone HCl 0.1 mg 08/30/24 18:26 Naloxone Hcl 0.4 Mg/Ml Vial IV PUSH Q2M PRN Opiate Reversal Ondansetron HCl 4 mg 08/28/24 13:56 Ondansetron Inj 4 Mg/2 Ml Vial IV PUSH Q4H PRN Nausea Ondansetron HCl 4 mg 08/30/24 18:26 Ondansetron Inj 4 Mg/2 Ml Vial IV PUSH Q4H PRN Nausea And Vomiting Polyethylene Glycol 17 gm 08/31/24 09:00 08/31/24 12:28 Polyethylene Glycol 3350 17 Gm Powd.Pack PO 17 gm QAM RENAE Administration Senna/Docusate Sodium 2 tab 08/30/24 18:26 08/31/24 10:55 Senna/Docusate Sodium Tablet PO Not Given BID [facility] Radiology Results: ITS Impressions Chest X-Ray 08/28/24 12:45 IMPRESSION: 1. Mild atelectasis in left lower lung zone. Hip/Pelvis X-Ray 08/28/24 12:46 IMPRESSION: 1. Comminuted intertrochanteric fracture of proximal right femur. 2. Mild right hip osteoarthritis. 3. Bipolar left hip hemiarthroplasty in near-anatomic alignment. Intraoperative X-Ray 08/30/24 17:06 IMPRESSION: 1. Expected appearance post open reduction and internal fixation of a comminuted intertrochanteric fracture the proximal right femur with the fixation in near anatomic alignment. See procedure note for further detail. Labs Labs: Laboratory Results - last 24 hr 08/31/24 05:23 WBC 13.0 H RBC 2.47 L Hgb 7.5 L Hct 23.4 L MCV 94.7 MCH 30.4 MCHC 32.1 RDW 13.9 Plt Count 172 MPV 9.0 Immature Gran % (Auto) 1.7 H Neut % (Auto) 82.2 H Lymph % (Auto) 6.8 L [place] % (Auto) 9.1 H Eos % (Auto) 0.0 Baso % (Auto) 0.2 Lymph # (Auto) 0.89 L [place] # (Auto) 1.2 H Eos # (Auto) 0.0 Baso # (Auto) 0.0 Abs Immat Gran (auto) 0.22 H Absolute Neuts (auto) 10.7 H Absolute Nucleated RBC 0.000 Nucleated RBC % 0.0 Sodium 136 L Potassium 4.8 Chloride 98 Carbon Dioxide 21 L Anion Gap 17 H BUN 43 H D Creatinine 5.40 H Estim Creat Clear Calc 6 Estimated GFR 8 L Glucose 111 H Calcium 9.1 Total Bilirubin 0.6 AST 135 H ALT 94 H Alkaline Phosphatase 230 H Total Protein 6.0 L Albumin 3.3 L Quality VTE Prophylaxis VTE prophylaxis: mechanical ordered
[2024-08-31] MEDS: LABETALOL HCL 100 MG TABLET 300 MG PO (17:34)
[2024-08-31] MEDS: MEMANTINE 5 MG TABLET PO (17:34)
[2024-08-31] MEDS: SENNA/DOCUSATE SODIUM TABLET 2 TAB PO (17:35)
[2024-08-31] MEDS: busPIRone HCL 5 MG TABLET 10 MG PO (17:35)
[2024-08-31] MEDS: amLODIPine BESYLATE 10 MG TABLET PO (21:29)
[2024-09-01] VITALS (11 sets, daily range): BP systolic 126–150; BP diastolic 41–68; PULSE 71–88; RESP 16–18; TEMP 36.3–37.2; O2SAT 90–96
[2024-09-01 05:41] LABS: Basophils Percent Auto 0.4 % (0.2-1.2); Eosinophils Absolute Auto 0.1 K/mm3 (0-0.3); Eosinophils Percent Auto 0.7 % (0-4.4); Hematocrit 21.5 % (37.0-47.0); Immature Granulocyte Absolute 0.08 K/mm3 (0.00-0.031); Immature Granulocyte Percent A 0.8 % (0-0.5); Lymphocytes Percent Auto 17.5 % (18.3-44.2); Mean Corpuscular HGB Conc 31.6 g/dl (32-36); Mean Corpuscular Hemoglobin 30.1 pg (26-34); Mean Corpuscular Volume 95.1 fl (80-100); Mean Platelet Volume 9.1 fl (7.4-10.4); Monocytes Absolute Auto 1.4 K/mm3 (0.1-0.6); Monocytes Percent Auto 14.4 % (2.6-8.5); Neutrophils Absolute Auto 6.4 K/mm3 (1.3-6.7); Neutrophils Percent Auto 66.2 % (45.5-73.1); Nucleated Red Blood Cells Perc 0.5 % (0.0-0.2); Platelet Count Result 174 k/mm3 (150-375); Red Blood Count 2.26 M/mm3 (4.2-5.4); Red Cell Distribution Width 14.2 % (11.5-14.5); White Blood Count 9.7 K/mm3 (4.5-10.0)
[2024-09-01 05:45] LABS: Hemoglobin 6.8 g/dL (12.0-15.0)
[2024-09-01 06:05] LABS: Alanine Aminotransferase 12 U/L (6-35); Albumin Level 3.1 g/dL (3.5-5.1); Alkaline Phosphatase 189 U/L (38-126); Anion Gap 11 mmol/L (4-12); Aspartate Amino Transferase 67 U/L (14-36); Bilirubin,Total 0.6 mg/dL (0.2-1.3); Blood Urea Nitrogen 27 mg/dL (7-17); Calcium 8.9 mg/dL (8.4-10.2); Carbon Dioxide 30 mmol/L (22-30); Chloride 97 mmol/L (98-107); Estimated CRCL calculation 11 ml/min; Estimated Glomerular Filt Rate 15; Glucose 90 mg/dL (65-110); Potassium 3.2 mmol/L (3.4-5.0); Sodium 138 mmol/L (137-145)
--- NOTE | 2024-09-01 06:46 | PM.IMPN ---
Progress Note: A&P Assessment and Plan (1) Intertrochanteric fracture of right femur: Qualifiers: Encounter type: initial encounter Fracture alignment: displaced Fracture type: closed Qualified Code(s): S72.141A - Displaced intertrochanteric fracture of right femur, initial encounter for closed fracture Code(s): S72.141A - Displaced intertrochanteric fracture of right femur, initial encounter for closed fracture Status: Acute Assessment and Plan: Per chart review, patient slid off the toilet landing on her backside resulting in severe right hip pain. She was denying recent falls, however was seen in the ED twice in the last month for falls which resulted in a fractured left wrist and more recently head trauma with abrasions to the forehead. She denies head trauma and LOC with this fall. - Hip/pelvis XR: 1. Comminuted intertrochanteric fracture of proximal right femur. 2. Mild right hip osteoarthritis. 3. Bipolar left hip hemiarthroplasty in near-anatomic alignment. - Analgesics - PT/OT, per ortho weight bearing as tolerated, however patient is typically non weight bearing at baseline - Ortho consulted S/p ORIF displaced right femur intertrochanteric fracture with locked long intramedullary nail with Dr. Yanez Xray follow up in 6 weeks. Okay for virtual follow up if it is too dificult for patient to get to the office. Call for more information. Wound Care: remove jocelyn at 2 weeks post op. Daily dressing changes until healed. DVT prophylaxis: continue Lovenox for 30 days total Pain medication: Oxycodone 2.5 mg vs Tylenol. (2) End-stage renal disease on hemodialysis: Code(s): N18.6 - End stage renal disease; Z99.2 - Dependence on renal dialysis Status: Acute Assessment and Plan: - Nephrology consulted Continue Tuesday/Tuesday/Tuesday outpatient dialysis schedule - Monitor I&Os, vital signs, neuro status and patient is a fall risk - Monitor serum electrolytes and CBC (3) Anemia of chronic disease: Code(s): D63.8 - Anemia in other chronic diseases classified elsewhere Status: Chronic Assessment and Plan: Related to ESRD. No signs of active bleeding, denies hematemesis, hematuria, hematochezia and melena. Vitals remain stable. - H/H 6.8/21.5 on am labs - 08/30 required a unit pRBC for H/H 6.6/20.9, repeat H/H 8.4/25.6 - / required a unit pRBC for H/H 6.8/21.5, repeat H/H 8.6/26.2 - Iron panel: Iron 49, TIBC 184, % sat 27 - B12/folate WNL - Epogen with HD once Hgb < 10 - Monitor (4) Hypertension: Code(s): I10 - Essential (primary) hypertension Status: Chronic Assessment and Plan: Chronic, continue home medications. - amlodipine 10 mg daily - labetalol 300 mg BID - losartan 50 mg daily - monitor Time Spent With Patient Time with patient: 25 - 35 minutes Subjective Date/time seen: 09/01/24 06:47 Interval history: 83-year-old female with history of stroke, memory loss, end-stage renal disease on hemodialysis, hypertension, and chronic anemia who presented to the emergency department via EMS from [facility] [place] for evaluation of right hip pain after a fall. Patient is pleasant lying comfortably in bed. She required a blood transfusion again today and levels responded appropriately. She has no complaints at this time. She states her pain is well controlled on current regimen. She was able to work with therapy today and says it went very well. Review of Systems Review of Systems: All systems reviewed & are unremarkable except as noted in HPI and below Exam Narrative: AF HR 71 RR 16 SpO2 96 BP 140/51 General: female in no acute respiratory distress who is nontoxic appearing, lying semi recumbent in bed. HEENT: Normocephalic. Extraocular movement intact. Sclera clear and anicteric. No facial asymmetry. Chest: Lungs are clear to auscultation bilaterally. No wheezes or crackles. CV: Heart was regular rate and rhythm. S1-S2. No murmurs, gallops, or rubs. Abd: Abdomen was soft. Nontender. Nondistended. Positive bowel sounds. No organomegaly or masses. Ext: Right lower extremity has clean dry and intact dressing with no noted bruising. Minimal edema to the upper thigh. No clubbing, cyanosis. 2+ DP pulses bilaterally. Neuro: Patient is alert and oriented x3 (person, place, year) but pleasantly confused with further conversation. Speech is clear. Objective Data Vital Signs Vital Signs: Vital Signs - 24 hr 08/31/24 07:56 08/31/24 08:13 08/31/24 08:45 Temperature 97.9 F Pulse Rate 84 79 83 Respiratory Rate 16 Blood Pressure 139/62 127/54 L 132/51 L Pulse Oximetry 92 Oxygen Delivery 08/31/24 09:00 08/31/24 09:30 08/31/24 09:45 Temperature Pulse Rate 86 89 86 Respiratory Rate Blood Pressure 146/56 H 141/46 H 136/48 L Pulse Oximetry Oxygen Delivery 08/31/24 10:00 08/31/24 11:00 08/31/24 11:15 Temperature Pulse Rate 87 93 95 Respiratory Rate Blood Pressure 154/55 H 126/48 L 127/53 L Pulse Oximetry Oxygen Delivery 08/31/24 11:30 08/31/24 11:43 08/31/24 11:48 Temperature 98.2 F Pulse Rate 89 84 88 Respiratory Rate 18 Blood Pressure 143/58 H 131/37 L 153/57 H Pulse Oximetry 93 Oxygen Delivery 08/31/24 07:50 08/31/24 08:30 08/31/24 09:15 Temperature Pulse Rate 80 85 Respiratory Rate Blood Pressure 147/57 H 143/57 H Pulse Oximetry Oxygen Delivery Room Air 08/31/24 10:15 08/31/24 10:30 08/31/24 10:45 Temperature Pulse Rate 85 83 81 Respiratory Rate Blood Pressure 151/57 H 132/55 L 140/53 L Pulse Oximetry Oxygen Delivery 08/31/24 12:11 08/31/24 13:35 08/31/24 14:20 Temperature 98.2 F Pulse Rate 89 Respiratory Rate 16 Blood Pressure 90/35 L 142/60 H Pulse Oximetry 91 Oxygen Delivery Room Air 08/31/24 14:41 08/31/24 16:11 08/31/24 17:00 Temperature 98.7 F 98.4 F Pulse Rate 73 67 Respiratory Rate 16 18 Blood Pressure 130/43 L Pulse Oximetry 92 94 Oxygen Delivery Room Air 08/31/24 17:34 08/31/24 20:11 08/31/24 20:00 Temperature 98.4 F Pulse Rate 76 69 Respiratory Rate 18 Blood Pressure 103/33 L Pulse Oximetry 90 92 Oxygen Delivery Room Air 09/01/24 00:00 Temperature 98.1 F Pulse Rate 76 Respiratory Rate 18 Blood Pressure 126/41 L Pulse Oximetry 90 Oxygen Delivery Intake/Output Intake/Output: Intake & Output 08/29/24 08/30/24 08/31/24 09/01/24 23:59 23:59 23:59 23:59 Intake Total 2905 848 5016 100 Output Total 1500 2050 Balance -350 500 200 100 Meds/Results Medications: Active Medications Generic Name Dose Route Start Last Admin Trade Name Freq PRN Reason Stop Dose Admin Acetaminophen 650 mg 08/28/24 13:56 08/31/24 21:39 Acetaminophen 325 Mg Tablet PO 650 mg Q4H PRN Administration Mild Pain (1-3) or Fever Acetaminophen 650 mg 08/30/24 18:26 09/01/24 05:47 Acetaminophen 325 Mg Tablet PO Not Given Q6HR RENAE Amlodipine Besylate 10 mg 08/28/24 21:50 08/31/24 21:29 Amlodipine Besylate 10 Mg Tablet PO 10 mg HS RENAE Administration Buspirone HCl 10 mg 08/29/24 09:00 08/31/24 17:35 Buspirone Hcl 5 Mg Tablet PO 10 mg BID RENAE Administration Enoxaparin Sodium 30 mg 08/31/24 09:00 08/31/24 12:28 Enoxaparin 30 Mg/0.3 Ml Syringe SUB-Q 30 mg DAILY RENAE Administration Hydroxyzine Pamoate 50 mg 08/30/24 18:26 Hydroxyzine Pamoate 25 Mg Capsule PO Q4H PRN Itching Albumin Human 50 mls @ 999 mls/hr 08/29/24 06:17 Albutein IVPB 09/28/24 06:16 Q10M PRN HYPOTENSION Sodium Chloride 250 mls @ 30 mls/hr 09/01/24 05:57 Normal Saline Iv IV CONT 09/01/24 14:16 .Q8H20M STA Sodium Chloride 250 mls @ 30 mls/hr 09/01/24 06:44 Normal Saline Iv IV CONT 09/01/24 15:03 .Q8H20M STA Labetalol HCl 300 mg 08/28/24 21:50 08/31/24 17:34 Labetalol Hcl 100 Mg Tablet PO 300 mg BID RENAE Administration Losartan Potassium 50 mg 08/29/24 09:00 08/31/24 12:29 Losartan Potassium 50 Mg Tablet PO 50 mg DAILY RENAE Administration Memantine 5 mg 08/29/24 09:00 08/31/24 17:34 Memantine 5 Mg Tablet PO 5 mg BID RENAE Administration Morphine Sulfate 2 mg 08/28/24 21:47 08/31/24 15:46 Morphine Sulfate (*Crx) 2 Mg/Ml Inj IV PUSH 2 mg Q4H PRN Administration Pain Rated 7-10 Multi-Ingred Cream/Lotion/Oil/Oint 1 applic 08/28/24 21:46 Eucerin Cream 120 Gm Jar TOPICAL PRN PRN dryness Naloxone HCl 0.1 mg 08/30/24 18:26 Naloxone Hcl 0.4 Mg/Ml Vial IV PUSH Q2M PRN Opiate Reversal Ondansetron HCl 4 mg 08/28/24 13:56 Ondansetron Inj 4 Mg/2 Ml Vial IV PUSH Q4H PRN Nausea Ondansetron HCl 4 mg 08/30/24 18:26 Ondansetron Inj 4 Mg/2 Ml Vial IV PUSH Q4H PRN Nausea And Vomiting Oxycodone HCl 2.5 mg 08/31/24 16:15 Oxycodone Hcl (*Crx) 2.5 Mg Tab Ir PO Q6HR PRN Pain Rated 4-6 Oxycodone HCl 5 mg 08/31/24 16:15 Oxycodone Hcl (*Crx) 5 Mg Tab Ir PO Q6HR PRN Pain Rated 7-10 Polyethylene Glycol 17 gm 08/31/24 09:00 08/31/24 12:28 Polyethylene Glycol 3350 17 Gm Powd.Pack PO 17 gm QAM RENAE Administration Senna/Docusate Sodium 2 tab 08/30/24 18:26 08/31/24 17:35 Senna/Docusate Sodium Tablet PO 2 tab BID RENAE Administration Radiology Results: ITS Impressions Chest X-Ray 08/28/24 12:45 IMPRESSION: 1. Mild atelectasis in left lower lung zone. Hip/Pelvis X-Ray 08/28/24 12:46 IMPRESSION: 1. Comminuted intertrochanteric fracture of proximal right femur. 2. Mild right hip osteoarthritis. 3. Bipolar left hip hemiarthroplasty in near-anatomic alignment. Intraoperative X-Ray 08/30/24 17:06 IMPRESSION: 1. Expected appearance post open reduction and internal fixation of a comminuted intertrochanteric fracture the proximal right femur with the fixation in near anatomic alignment. See procedure note for further detail. Labs Labs: Laboratory Results - last 24 hr 08/30/24 09/01/24 09:09 05:06 WBC 9.7 RBC 2.26 L Hgb 6.8 L* Hct 21.5 L MCV 95.1 MCH 30.1 MCHC 31.6 L RDW 14.2 Plt Count 174 MPV 9.1 Immature Gran % (Auto) 0.8 H Neut % (Auto) 66.2 Lymph % (Auto) 17.5 L [place] % (Auto) 14.4 H Eos % (Auto) 0.7 Baso % (Auto) 0.4 Lymph # (Auto) 1.70 [place] # (Auto) 1.4 H Eos # (Auto) 0.1 Baso # (Auto) 0.0 Abs Immat Gran (auto) 0.08 H Absolute Neuts (auto) 6.4 Absolute Nucleated RBC 0.050 H Nucleated RBC % 0.5 H Sodium 138 Potassium 3.2 L Chloride 97 L Carbon Dioxide 30 Anion Gap 11 BUN 27 H D Creatinine 3.00 H Estim Creat Clear Calc 11 Estimated GFR 15 L Glucose 90 Calcium 8.9 Total Bilirubin 0.6 AST 67 H ALT 12 Alkaline Phosphatase 189 H Total Protein 6.0 L Albumin 3.1 L Blood Type A Negative Antibody Screen Negative Crossmatch See Detail Quality VTE Prophylaxis VTE prophylaxis: mechanical ordered
[2024-09-01] MEDS: ACETAMINOPHEN 325 MG TABLET 650 MG PO ×3 (06:53→18:26)
[2024-09-01] MEDS: POTASSIUM CHLORIDE 20 MEQ ER TABLET 40 MEQ PO (09:44)
[2024-09-01] MEDS: LABETALOL HCL 100 MG TABLET 300 MG PO ×2 (09:44→18:26)
[2024-09-01] MEDS: LOSARTAN POTASSIUM 50 MG TABLET PO (09:44)
[2024-09-01] MEDS: FERROUS SULFATE 325 MG TABLET DR PO ×2 (09:44→18:26)
[2024-09-01] MEDS: polyethylene glycoL 3350 17 GM POWD.PACK PO (09:44)
[2024-09-01] MEDS: MEMANTINE 5 MG TABLET PO ×2 (09:44→18:26)
[2024-09-01] MEDS: busPIRone HCL 5 MG TABLET 10 MG PO ×2 (09:44→18:26)
[2024-09-01] MEDS: SENNA/DOCUSATE SODIUM TABLET 2 TAB PO ×2 (09:44→18:26)
[2024-09-01 11:39] LABS: Hematocrit 26.2 % (37.0-47.0); Hemoglobin 8.6 g/dL (12.0-15.0)
--- NOTE | 2024-09-01 12:41 | P.PNNP_ITS ---
Progress Note: A&P Assessment and Plan (1) End stage renal disease: Code(s): N18.6 - End stage renal disease Status: Chronic Assessment and Plan: * HD yesterday * continue Tuesday/Tuesday/Tuesday outpatient dialysis schedule while hospitalized * follow electrolytes, volume status, and clearance (2) Intertrochanteric fracture of right femur: Qualifiers: Encounter type: initial encounter Fracture type: closed Fracture alignment: displaced Qualified Code(s): S72.141A - Displaced intertrochanteric fracture of right femur, initial encounter for closed fracture Code(s): S72.141A - Displaced intertrochanteric fracture of right femur, initial encounter for closed fracture Status: Acute Assessment and Plan: * as noted by admission imaging * Orthopedic following * s/p ORIF of displaced right femur intertrochanteric fracture with locked long intramedullary nail (on 08/30) * pain control * PT/OT as tolerated (3) Anemia: Code(s): D64.9 - Anemia, unspecified Status: Chronic Assessment and Plan: * related to ESRD and acute trauma from fall * Retacrit with HD * PRBC transfusion per protocol * follow trend of H/H (4) Hypertension: Code(s): I10 - Essential (primary) hypertension Status: Chronic Assessment and Plan: * can fluctuate to extremes * resumed on home medications * pain medications likely playing a role * follow trend of hemodynamics. (5) Dementia: Code(s): F03.90 - Unspecified dementia, unspecified severity, without behavioral di sturbance, psychotic disturbance, mood disturbance, and anxiety Status: Chronic Assessment and Plan: * appears at baseline mentation * continue supportive therapy Will continue to follow. Subjective Date/time seen: 09/01/24 12:41 Interval history: Follow-up for end stage renal disease on hemodialysis. Tolerated dialysis treatment yesterday without any issues or problems; low H/H this AM so PRBC transfusion with appropriate incrementation; pain control appears satisfactory; no other issues/events overnight or earlier this morning. Exam Narrative: General: elderly and frail female in NAD Heart: normal S1 and S2; no rub Lungs: decreased at bases Abdomen: soft, nontender, nondistended, positive bowel sounds Extremities: no cyanosis or clubbing; no edema Skin: no rash Objective Data Vital Signs Vital Signs: Vital Signs Temp Pulse Resp BP Pulse Ox O2 Del Method 09/01/24 12:40 97.4 F L 71 16 140/51 L 96 09/01/24 10:00 Room Air 09/01/24 09:30 98.6 F 80 16 129/53 L 94 09/01/24 09:44 80 09/01/24 08:27 98.0 F 83 16 133/48 L 94 09/01/24 07:27 98.4 F 87 16 142/56 H 94 09/01/24 07:06 97.8 F 82 16 139/52 L 93 09/01/24 00:00 98.1 F 76 18 126/41 L 90 08/31/24 20:00 92 Room Air 08/31/24 20:11 98.4 F 69 18 103/33 L 90 Intake/Output Intake/Output: Intake & Output 08/29/24 08/30/24 08/31/24 09/01/24 23:59 23:59 23:59 23:59 Intake Total 1133 496 4767 1060 Output Total 1500 2050 Balance -350 167 052 7270 Meds/Results Medications: Active Medications Generic Name Dose Route Start Last Admin Trade Name Freq PRN Reason Stop Dose Admin Acetaminophen 650 mg 08/28/24 13:56 08/31/24 21:39 Acetaminophen 325 Mg Tablet PO 650 mg Q4H PRN Administration Mild Pain (1-3) or Fever Acetaminophen 650 mg 08/30/24 18:26 09/01/24 13:00 Acetaminophen 325 Mg Tablet PO 650 mg Q6HR RENAE Administration Amlodipine Besylate 10 mg 08/28/24 21:50 08/31/24 21:29 Amlodipine Besylate 10 Mg Tablet PO 10 mg HS RENAE Administration Buspirone HCl 10 mg 08/29/24 09:00 09/01/24 09:44 Buspirone Hcl 5 Mg Tablet PO 10 mg BID RENAE Administration Enoxaparin Sodium 30 mg 08/31/24 09:00 09/01/24 09:53 Enoxaparin 30 Mg/0.3 Ml Syringe SUB-Q Not Given DAILY RENAE Ferrous Sulfate 325 mg 09/01/24 09:00 09/01/24 09:44 Ferrous Sulfate [address] PO 325 mg BID RENAE Administration Hydroxyzine Pamoate 50 mg 08/30/24 18:26 Hydroxyzine Pamoate 25 Mg Capsule PO Q4H PRN Itching Albumin Human 50 mls @ 999 mls/hr 08/29/24 06:17 Albutein IVPB 09/28/24 06:16 Q10M PRN HYPOTENSION Labetalol HCl 300 mg 08/28/24 21:50 09/01/24 09:44 Labetalol Hcl 100 Mg Tablet PO 300 mg BID RENAE Administration Losartan Potassium 50 mg 08/29/24 09:00 09/01/24 09:44 Losartan Potassium 50 Mg Tablet PO 50 mg DAILY RENAE Administration Memantine 5 mg 08/29/24 09:00 09/01/24 09:44 Memantine 5 Mg Tablet PO 5 mg BID RENAE Administration Morphine Sulfate 2 mg 08/28/24 21:47 08/31/24 15:46 Morphine Sulfate (*Crx) 2 Mg/Ml Inj IV PUSH 2 mg Q4H PRN Administration Pain Rated 7-10 Multi-Ingred Cream/Lotion/Oil/Oint 1 applic 08/28/24 21:46 Eucerin Cream 120 Gm Jar TOPICAL PRN PRN dryness Naloxone HCl 0.1 mg 08/30/24 18:26 Naloxone Hcl 0.4 Mg/Ml Vial IV PUSH Q2M PRN Opiate Reversal Ondansetron HCl 4 mg 08/28/24 13:56 Ondansetron Inj 4 Mg/2 Ml Vial IV PUSH Q4H PRN Nausea Ondansetron HCl 4 mg 08/30/24 18:26 Ondansetron Inj 4 Mg/2 Ml Vial IV PUSH Q4H PRN Nausea And Vomiting Oxycodone HCl 2.5 mg 08/31/24 16:15 Oxycodone Hcl (*Crx) 2.5 Mg Tab Ir PO Q6HR PRN Pain Rated 4-6 Oxycodone HCl 5 mg 08/31/24 16:15 Oxycodone Hcl (*Crx) 5 Mg Tab Ir PO Q6HR PRN Pain Rated 7-10 Polyethylene Glycol 17 gm 08/31/24 09:00 09/01/24 09:44 Polyethylene Glycol 3350 17 Gm Powd.Pack PO 17 gm QAM RENAE Administration Senna/Docusate Sodium 2 tab 08/30/24 18:26 09/01/24 09:44 Senna/Docusate Sodium Tablet PO 2 tab BID RENAE Administration Radiology Results: ITS Impressions Chest X-Ray 08/28/24 12:45 IMPRESSION: 1. Mild atelectasis in left lower lung zone. Hip/Pelvis X-Ray 08/28/24 12:46 IMPRESSION: 1. Comminuted intertrochanteric fracture of proximal right femur. 2. Mild right hip osteoarthritis. 3. Bipolar left hip hemiarthroplasty in near-anatomic alignment. Intraoperative X-Ray 08/30/24 17:06 IMPRESSION: 1. Expected appearance post open reduction and internal fixation of a comminuted intertrochanteric fracture the proximal right femur with the fixation in near anatomic alignment. See procedure note for further detail. Labs Labs: Laboratory Tests 09/01/24 11:24 09/01/24 05:06 Hgb 6.8 L* Hct 21.5 L Calcium 8.9 Total Bilirubin 0.6 AST 67 H ALT 12 Alkaline Phosphatase 189 H Total Protein 6.0 L Albumin 3.1 L
[2024-09-01] MEDS: amLODIPine BESYLATE 10 MG TABLET PO (21:15)
[2024-09-02] VITALS: BP 145/53; PULSE 77; RESP 17; TEMP 36.9; O2SAT 95
[2024-09-02] MEDS: ACETAMINOPHEN 325 MG TABLET 650 MG PO ×3 (00:14→13:24)
--- NOTE | 2024-09-02 02:08 | PC.NURSE ---
Daylight Savings Time For Daylight Savings Time Ending in the Fall - Clocks are moved back. For Daylight Savings Time Beginning in the Spring - Clocks are moved ahead. For [facility], the time of change occurs at 0200 hrs. Time is taken from the summons server. This entry on the patient's chart recognizes the change in time reflected during documentation. Example: 2 entries for vital signs may be charted for 0200 hrs.
[2024-09-02 05:53] LABS: Basophils Absolute Auto 0.1 K/mm3 (0.0-0.1); Basophils Percent Auto 0.6 % (0.2-1.2); Eosinophils Absolute Auto 0.2 K/mm3 (0-0.3); Eosinophils Percent Auto 1.5 % (0-4.4); Hematocrit 27.2 % (37.0-47.0); Hemoglobin 8.9 g/dL (12.0-15.0); Immature Granulocyte Absolute 0.16 K/mm3 (0.00-0.031); Immature Granulocyte Percent A 1.6 % (0-0.5); Lymphocytes Absolute Auto 1.56 K/mm3 (0.9-3.2); Mean Corpuscular HGB Conc 32.7 g/dl (32-36); Mean Corpuscular Hemoglobin 30.4 pg (26-34); Mean Corpuscular Volume 92.8 fl (80-100); Mean Platelet Volume 8.8 fl (7.4-10.4); Monocytes Absolute Auto 1.2 K/mm3 (0.1-0.6); Neutrophils Absolute Auto 6.6 K/mm3 (1.3-6.7); Neutrophils Percent Auto 68.3 % (45.5-73.1); Nucleated Red Blood Cells Perc 0.4 % (0.0-0.2); Platelet Count Result 201 k/mm3 (150-375); Red Blood Count 2.93 M/mm3 (4.2-5.4); Red Cell Distribution Width 15.3 % (11.5-14.5); White Blood Count 9.7 K/mm3 (4.5-10.0)
[2024-09-02 05:56] VITALS: BP 139/51; PULSE 81; RESP 17; TEMP 36.9; O2SAT 94
[2024-09-02 06:14] LABS: Alanine Aminotransferase 9 U/L (6-35); Albumin Level 3.2 g/dL (3.5-5.1); Alkaline Phosphatase 178 U/L (38-126); Anion Gap 13 mmol/L (4-12); Aspartate Amino Transferase 41 U/L (14-36); Bilirubin,Total 0.7 mg/dL (0.2-1.3); Blood Urea Nitrogen 46 mg/dL (7-17); Calcium 9.2 mg/dL (8.4-10.2); Carbon Dioxide 27 mmol/L (22-30); Chloride 98 mmol/L (98-107); Estimated CRCL calculation 8 ml/min; Estimated Glomerular Filt Rate 9; Glucose 85 mg/dL (65-110); Potassium 4.1 mmol/L (3.4-5.0); Sodium 138 mmol/L (137-145)
[2024-09-02 08:00] VITALS: BP 142/53; PULSE 82; RESP 20; TEMP 36.5; O2SAT 95
[2024-09-02 09:22] VITALS: BP 155/64; PULSE 86; RESP 16; O2SAT 98
[2024-09-02 09:28] VITALS: PULSE 74
[2024-09-02] MEDS: SENNA/DOCUSATE SODIUM TABLET 2 TAB PO (09:28)
[2024-09-02] MEDS: polyethylene glycoL 3350 17 GM POWD.PACK PO (09:28)
[2024-09-02] MEDS: MEMANTINE 5 MG TABLET PO (09:28)
[2024-09-02] MEDS: busPIRone HCL 5 MG TABLET 10 MG PO (09:28)
[2024-09-02] MEDS: FERROUS SULFATE 325 MG TABLET DR PO (09:28)
[2024-09-02] MEDS: LOSARTAN POTASSIUM 50 MG TABLET PO (09:28)
[2024-09-02] MEDS: LABETALOL HCL 100 MG TABLET 300 MG PO (09:28)
--- NOTE | 2024-09-02 11:07 | P.PNNP_ITS ---
Progress Note: A&P Assessment and Plan (1) End stage renal disease: Code(s): N18.6 - End stage renal disease Status: Chronic Assessment and Plan: * HD tomorrow * continue Tuesday/Tuesday/Tuesday outpatient dialysis schedule while hospitalized * follow electrolytes, volume status, and clearance (2) Intertrochanteric fracture of right femur: Qualifiers: Encounter type: initial encounter Fracture type: closed Fracture alignment: displaced Qualified Code(s): S72.141A - Displaced intertrochanteric fracture of right femur, initial encounter for closed fracture Code(s): S72.141A - Displaced intertrochanteric fracture of right femur, initial encounter for closed fracture Status: Acute Assessment and Plan: * as noted by admission imaging * Orthopedic following * s/p ORIF of displaced right femur intertrochanteric fracture with locked long intramedullary nail (on 08/30) * pain control * PT/OT as tolerated (3) Anemia: Code(s): D64.9 - Anemia, unspecified Status: Chronic Assessment and Plan: * related to ESRD and acute trauma from fall * Retacrit with HD * PRBC transfusion per protocol * follow trend of H/H (4) Hypertension: Code(s): I10 - Essential (primary) hypertension Status: Chronic Assessment and Plan: * can fluctuate to extremes * resumed on home medications * pain medications likely playing a role * follow trend of hemodynamics. (5) Dementia: Code(s): F03.90 - Unspecified dementia, unspecified severity, without behavioral dis turbance, psychotic disturbance, mood disturbance, and anxiety Status: Chronic Assessment and Plan: * appears at baseline mentation * continue supportive therapy Will continue to follow. Subjective Date/time seen: 09/02/24 11:07 Interval history: Follow-up for end stage renal disease on hemodialysis. No new issues or problems to report at this time; pain control appears sat isfactory and no events overnight or earlier this morning; H/H remains relatively stable as well; no apparent distress noted. Exam Narrative: General: elderly and frail female in NAD Heart: normal S1 and S2; no rub Lungs: decreased at bases Abdomen: soft, nontender, nondistended, positive bowel sounds Extremities: no cyanosis or clubbing; no edema Skin: no rash Objective Data Vital Signs Vital Signs: Vital Signs Temp Pulse Resp BP Pulse Ox O2 Del Method 09/02/24 11:02 97.8 F 61 18 135/46 L 97 09/02/24 09:30 Room Air 09/02/24 08:00 97.7 F 82 20 142/53 H 95 09/02/24 09:28 74 09/02/24 09:22 86 16 155/64 H 98 09/02/24 05:56 98.4 F 81 17 139/51 L 94 09/01/24 21:15 Room Air 09/02/24 00:00 98.4 F 77 17 145/53 H 95 09/01/24 22:23 98.9 F 78 18 150/50 H 95 09/01/24 18:26 88 09/01/24 18:23 82 16 133/68 96 09/01/24 15:54 98.5 F 79 18 137/46 L 93 Intake/Output Intake/Output: Intake & Output 08/30/24 08/31/24 09/01/24 09/02/24 23:59 23:59 23:59 22:59 Intake Total 500 2250 1060 220 Output Total 2050 0 Balance 930 153 4039 220 Meds/Results Medications: Active Medications Generic Name Dose Route Start Last Admin Trade Name Freq PRN Reason Stop Dose Admin Acetaminophen 650 mg 08/28/24 13:56 08/31/24 21:39 Acetaminophen 325 Mg Tablet PO 650 mg Q4H PRN Administration Mild Pain (1-3) or Fever Acetaminophen 650 mg 08/30/24 18:26 09/02/24 05:49 Acetaminophen 325 Mg Tablet PO 650 mg Q6HR RENAE Administration Amlodipine Besylate 10 mg 08/28/24 21:50 09/01/24 21:15 Amlodipine Besylate 10 Mg Tablet PO 10 mg HS RENAE Administration Buspirone HCl 10 mg 08/29/24 09:00 09/02/24 09:28 Buspirone Hcl 5 Mg Tablet PO 10 mg BID RENAE Administration Enoxaparin Sodium 30 mg 08/31/24 09:00 09/01/24 09:53 Enoxaparin 30 Mg/0.3 Ml Syringe SUB-Q Not Given DAILY RENAE Ferrous Sulfate 325 mg 09/01/24 09:00 09/02/24 09:28 Ferrous Sulfate [address] PO 325 mg BID RENAE Administration Hydroxyzine Pamoate 50 mg 08/30/24 18:26 Hydroxyzine Pamoate 25 Mg Capsule PO Q4H PRN Itching Albumin Human 50 mls @ 999 mls/hr 08/29/24 06:17 Albutein IVPB 09/28/24 06:16 Q10M PRN HYPOTENSION Labetalol HCl 300 mg 08/28/24 21:50 09/02/24 09:28 Labetalol Hcl 100 Mg Tablet PO 300 mg BID RENAE Administration Losartan Potassium 50 mg 08/29/24 09:00 09/02/24 09:28 Losartan Potassium 50 Mg Tablet PO 50 mg DAILY RENAE Administration Memantine 5 mg 08/29/24 09:00 09/02/24 09:28 Memantine 5 Mg Tablet PO 5 mg BID RENAE Administration Morphine Sulfate 2 mg 08/28/24 21:47 08/31/24 15:46 Morphine Sulfate (*Crx) 2 Mg/Ml Inj IV PUSH 2 mg Q4H PRN Administration Pain Rated 7-10 Multi-Ingred Cream/Lotion/Oil/Oint 1 applic 08/28/24 21:46 Eucerin Cream 120 Gm Jar TOPICAL PRN PRN dryness Naloxone HCl 0.1 mg 08/30/24 18:26 Naloxone Hcl 0.4 Mg/Ml Vial IV PUSH Q2M PRN Opiate Reversal Ondansetron HCl 4 mg 08/28/24 13:56 Ondansetron Inj 4 Mg/2 Ml Vial IV PUSH Q4H PRN Nausea Ondansetron HCl 4 mg 08/30/24 18:26 Ondansetron Inj 4 Mg/2 Ml Vial IV PUSH Q4H PRN Nausea And Vomiting Oxycodone HCl 2.5 mg 08/31/24 16:15 Oxycodone Hcl (*Crx) 2.5 Mg Tab Ir PO Q6HR PRN Pain Rated 4-6 Oxycodone HCl 5 mg 08/31/24 16:15 Oxycodone Hcl (*Crx) 5 Mg Tab Ir PO Q6HR PRN Pain Rated 7-10 Polyethylene Glycol 17 gm 08/31/24 09:00 09/02/24 09:28 Polyethylene Glycol 3350 17 Gm Powd.Pack PO 17 gm QAM RENAE Administration Senna/Docusate Sodium 2 tab 08/30/24 18:26 09/02/24 09:28 Senna/Docusate Sodium Tablet PO 2 tab BID RENAE Administration Radiology Results: ITS Impressions Chest X-Ray 08/28/24 12:45 IMPRESSION: 1. Mild atelectasis in left lower lung zone. Hip/Pelvis X-Ray 08/28/24 12:46 IMPRESSION: 1. Comminuted intertrochanteric fracture of proximal right femur. 2. Mild right hip osteoarthritis. 3. Bipolar left hip hemiarthroplasty in near-anatomic alignment. Intraoperative X-Ray 08/30/24 17:06 IMPRESSION: 1. Expected appearance post open reduction and internal fixation of a comminuted intertrochanteric fracture the proximal right femur with the fixation in near anatomic alignment. See procedure note for further detail. Labs Labs: Laboratory Tests 09/02/24 05:22 09/02/24 05:22 Calcium 9.2 Total Bilirubin 0.7 AST 41 H ALT 9 Alkaline Phosphatase 178 H Total Protein 6.0 L Albumin 3.2 L
--- NOTE | 2024-09-02 11:20 | P.DS_ITS ---
DS: Admitting Diagnosis Discharge Date 09/02/2024 Admitting Diagnosis inter trochanteric fracture of the right femur end-stage renal disease on hemodialysis anemia chronic disease hypertension DS: Discharge Diagnosis Discharge Diagnosis (1) Intertrochanteric fracture of right femur: Qualifiers: Encounter type: initial encounter Fracture type: closed Fracture alignment: displaced Qualified Code(s): S72.141A - Displaced intertrochanteric fracture of right femur, initial encounter for closed fracture Code(s): S72.141A - Displaced intertrochanteric fracture of right femur, initial encounter for closed fracture Status: Acute (2) End-stage renal disease on hemodialysis: Code(s): N18.6 - End stage renal disease; Z99.2 - Dependence on renal dialysis Status: Acute (3) Anemia of chronic disease: Code(s): D63.8 - Anemia in other chronic diseases classified elsewhere Status: Chronic (4) Hypertension: Code(s): I10 - Essential (primary) hypertension Status: Chronic DS: Summary Hospital Course Reason for hospitalization: inter trochanteric fracture of the right femur end-stage renal disease on hemodialysis anemia chronic disease hypertension Hospital Course: 83-year-old female with history of stroke, memory loss, end-stage renal disease on hemodialysis, hypertension, and chronic anemia who presented to the emergency department via EMS from [facility] for evaluation of right hip pain after a fall. Per chart review, patient slid off the toilet landing on her backside resulting in severe right hip pain. She was denying recent falls, however was seen in the ED twice in the last month for falls which resulted in a fractured left wrist and more recently head trauma with abrasions to the forehead. She denies head trauma and LOC with this fall. Hip/pelvis XR showed comminuted intertrochanteric fracture of proximal right femur, mild right hip osteoarthritis, and bipolar left hip hemiarthroplasty in near-anatomic alignment. Ortho was consulted. Prior to surgery patient required a blood transfusion for H/H 6.6/20.9. There was no signs of active bleeding and anemia is likely secondary to ESRD. She received the unit then underwent an ORIF displaced right femur intertrochanteric fracture with locked long intramedullary nail with Dr. Yanez on 08/30. Patient tolerated the procedure well. On the following labs she again required a transfusion for H/H 6.8/21.5. There was no signs of active bleeding. Iron panel was low and patient was started on iron supplementation. She also received Epogen with dialysis when hgb < 10. Patients blood levels responded appropriately and remained stable at time of discharge. Prior to discharge patient worked with therapy, she is WBAT per ortho however she does not typically ambulate. On final evaluation patient was AOx3 and had no complaints. She denies chest pain, shortness of breath, nausea/vomiting and abdominal pain. Patient discharged to SNF in stable condition. She is to follow up with her PCP in 1 week and ortho as scheduled. She is to continue her dialysis MWF schedule. Status at Discharge Functional status at discharge: wheelchair bound Time Spent with Patient Time attestation: Total time spent providing and/or coordinating discharge services: Time spent: Greater than 30 minutes Exam Narrative: AF HR 61 RR 18 SpO2 97 BP 135/46 General: female in no acute respiratory distress who is nontoxic appearing, lying semi recumbent in bed. HEENT: Normocephalic. Extraocular movement intact. Sclera clear and anicteric. No facial asymmetry. Chest: Lungs are clear to auscultation bilaterally. No wheezes or crackles. CV: Heart was regular rate and rhythm. S1-S2. No murmurs, gallops, or rubs. Abd: Abdomen was soft. Nontender. Nondistended. Positive bowel sounds. No organomegaly or masses. Ext: Right lower extremity has clean dry and intact dressing with no noted bruising. Minimal edema to the upper thigh. No clubbing, cyanosis. 2+ DP pulses bilaterally. Neuro: Patient is alert and oriented x3 (person, place, year) but pleasantly confused with further conversation. Speech is clear. DS: Data Data Completed and Pending Completed studies during hospitalization: Intraoperative xR Hip/pelvis XR Chest XR Labs on day of discharge: Labs from last 24 hours 09/02/24 05:22 WBC 9.7 RBC 2.93 L Hgb 8.9 L Hct 27.2 L MCV 92.8 MCH 30.4 MCHC 32.7 RDW 15.3 H Plt Count 201 MPV 8.8 Immature Gran % (Auto) 1.6 H Neut % (Auto) 68.3 Lymph % (Auto) 16.0 L [place] % (Auto) 12.0 H Eos % (Auto) 1.5 Baso % (Auto) 0.6 Lymph # (Auto) 1.56 [place] # (Auto) 1.2 H Eos # (Auto) 0.2 Baso # (Auto) 0.1 Abs Immat Gran (auto) 0.16 H Absolute Neuts (auto) 6.6 Absolute Nucleated RBC 0.040 H Nucleated RBC % 0.4 H Sodium 138 Potassium 4.1 Chloride 98 Carbon Dioxide 27 Anion Gap 13 H BUN 46 H D Creatinine 4.80 H Estim Creat Clear Calc 8 Estimated GFR 9 L Glucose 85 Calcium 9.2 Total Bilirubin 0.7 AST 41 H ALT 9 Alkaline Phosphatase 178 H Total Protein 6.0 L Albumin 3.2 L Discharge Plan Discharge Attending physician on discharge: Chucky Martínez Consulting providers: Pawan Yanez; Leticia Reyes Discharging Clinician: Trish Nichole Anticipated Discharge Date/Time: 09/02/24 11:19 Patient Disposition: SNF Activity: as tolerated Diet: as tolerated and renal Discharge Instructions: Ortho instructions: DOS 08/30/24 ORIF displaced right femur intertrochanteric fracture with locked long intramedullary nail. * D/C to SNF/rehab * Xray follow up in 6 weeks. Okay for virtual follow up if it is too dificult for patient to get to the office. Call for more information. * Wound Care: remove jocelyn at 2 weeks post op. Daily dressing changes until healed. * PT: WBAT. (patient typically non-weight bearing however). * DVT prophylaxis: continue Lovenox for 30 days total * Pain medication: Oxycodone 2.5 mg vs Tylenol. Monitor blood pressures Take caution while standing, rising, or moving Change positions slowly taking a break between each position change If you standing feel dizzy sat back down and take a break Continue Tuesday/Tuesday/Tuesday outpatient dialysis schedule Epogen with dialysis if Hgb < 10 Started on daily iron supplementation Encouraged to continue with yearly vaccinations Return to the emergency department if he developed sudden shortness of breath, chest pain, nausea, vomiting, upset stomach or intractable diarrhea Return to the emergency department if you develop fever greater than 101.5 Follow-up with the primary care physician within 1 weeks Thank you for [facility] for your healthcare needs Patient Instructions: Dialysis Diet (DC), End Stage Kidney Disease (DC), ORIF of Hip Fracture (GEN) Patient Language: Estonian Stand Alone Forms: General Discharge Information Follow-up/Referrals: Pawan Yanez MD [Physician] - Call for Appointment Misael Asif MD [Primary Care Provider] - Call for Appointment Discharge Medications: New enoxaparin 30 mg/0.3 mL Syringe 30 mg subcut DAILY 30 Days Qty: 9 0RF ferrous sulfate 325 mg (65 mg iron) Tablet,Delayed Release (Dr/Ec) 325 mg PO BID Qty: 60 0RF oxycodone 5 mg capsule 2.5 mg PO Q6H PRN (Reason: pain) Qty: 7 0RF Continued buspirone 5 mg tablet 10 mg PO BID Rx Instructions: 06:30-09:30 and 16:00-18:00 labetalol 200 mg tablet 300 mg PO BID Rx Instructions: 06:30-09:30 and 16:00-18:00 memantine 5 mg Tablet 5 mg PO BID Rx Instructions: 07:00-10:00 and 16:00-18:00 amlodipine 10 mg tablet 10 mg PO HS Rx Instructions: 19:00-22:00 losartan 50 mg tablet 50 mg PO DAILY Rx Instructions: 08:00 cefdinir 300 mg capsule 300 mg PO DAILY Qty: 4 0RF Rx Instructions: Tuesday, Tuesday, Tuesday after dialysis acetaminophen 325 mg Tablet 650 mg PO Q4H PRN (Reason: minor pain, fever greater than 100.4) loperamide 2 mg Capsule 2 mg PO PRN Rx Instructions: 2 capsules after 1st loose stool, then 1 capsule after each subsequent loose stool, but not to exceed 4 capsules in 24 hours Eucerin Cream 1 applic TOPICAL PRN PRN (Reason: dryness) Rx Instructions: 1 application BID PRN to affected areas for dryness Date of admission: 08/28/24 13:56 Primary Care Provider: Misael Asif Admitting Provider: Chucky Martínez Attending physician on admission: Trish Nichole Condition: Stable Hospitalist MIPS Heart Failure (Exclusion) Patient has history of Heart Transplant or Left Ventricular Assistive Device?: No IF YES, STOP HERE Heart Failure (Qualifier) Patient has current or prior documentation of LVEF less than or equal to 40%, or mod/servere depressed LVSF?: No IF NO, STOP HERE
[2024-09-02 12:22] VITALS: BP 135/46; PULSE 61; RESP 18; TEMP 36.6; O2SAT 97
[2024-09-02] MEDS: ENOXAPARIN 30 MG/0.3 ML SYRINGE SUB-Q (13:24)
[2024-09-02 14:21] LABS: SARS-CoV-2 RNA PCR Negative (Negative)
== END 2024-09-02 17:00 | DRG 480 ==
LOC: ANHED 13:55 → ANH2MED 14:42
PROVIDERS: Anesthesiology; Internal Medicine Nephrology; Orthopaedic Surgery; Admitting Provider Internal Medicine; Emergency Provider Family Medicine; PCP Hospitalist; Visit Provider Student in an Organized Health Care Education/Training Program
PROC: 0QS636Z Reposition Right Upper Femur with Intramedullary Internal Fixation Device, Percutaneous Approach (ICD-10-PCS; CPT 27245; principal; 2024-08-30 14:30)
DX: S72.141A Displaced intertrochanteric fracture of right femur, initial encounter for closed fracture (principal); N18.6 End stage renal disease; I12.0 Hypertensive chronic kidney disease with stage 5 chronic kidney disease or end stage renal disease; W18.11XA Fall from or off toilet without subsequent striking against object, initial encounter; D63.1 Anemia in chronic kidney disease; F01.50 Vascular dementia, unspecified severity, without behavioral disturbance, psychotic disturbance, mood disturbance, and anxiety; M10.9 Gout, unspecified; M16.11 Unilateral primary osteoarthritis, right hip; Z11.52 Encounter for screening for COVID-19; Z99.2 Dependence on renal dialysis; Z86.73 Personal history of transient ischemic attack (TIA), and cerebral infarction without residual deficits; Z91.81 History of falling; Z90.49 Acquired absence of other specified parts of digestive tract; Z90.89 Acquired absence of other organs; Z66 Do not resuscitate; Z96.642 Presence of left artificial hip joint
CPT/HCPCS: 36415; 36430; 71045; 73502; 80053; 80069; 82607; 82746; 83540; 83550; 83735; 85014; 85018; 85025; 85027; 85610; 86706; 86850; 86900; 86901; 86923; 87340; 87635; 93005; 97110; 97161; 97165; 97530; 99199; 99285; A9270; C1713; G0257; J0690; J1100; J1650; J2270; J2371; J2405; J2704; J3010; J7030; J7040; J7050; P9016; P9047; Q5105

== ENCOUNTER 2024-10-10 02:31 | Emergency (ER) | payer MEDICARE, SELFPAY ==
--- NOTE | ~2024-10-10 | XR_ITS ---
Left wrist Technique: PA, oblique, lateral, and ulnar deviation views were obtained. Clinical History: Swelling, history of fracture COMPARISON: -24 Findings: Subacute transverse fracture the distal radius present, with dorsal in relation and dorsal displacement. Probable fracture of the ulnar styloid process also present. Osseous alignment is uncha nged from prior exam. There is moderate degenerative change of the triscaphe joint. Soft tissues are unremarkable. Impression: Subacute dorsal angulated and dorsally displaced fracture the distal radius, essentially stable from prior exam. Probable ulnar styloid process fracture, also unchanged. There is posttraumatic positive ulnar varian ce. Reviewed, dictated and finalized at location . [facility] Impression: Subacute dorsal angulated and dorsally displaced fracture the distal radius, es sentially stable from prior exam. Probable ulnar styloid process fracture, also unchanged. There is posttraumatic positive ulnar variance.
[2024-10-10 02:36] VITALS: BP 172/80; PULSE 91; RESP 16; TEMP 37.1; O2SAT 97
[2024-10-10 03:28] VITALS: PULSE 85; RESP 17; O2SAT 100
[2024-10-10 04:02] VITALS: BP 184/76; PULSE 88; RESP 15; O2SAT 98
--- NOTE | 2024-10-10 04:19 | ED.EXTPRO ---
HPI - Extremity Problem General Chief complaint: Extremity Problem,Nontraumatic Stated complaint: wrist swelling Time Seen by Provider: 10/10/24 04:18 Source: patient, EMS and RN notes reviewed Mode of arrival: EMS Limitations: no limitations History of Present Illness HPI Narrative: patient presents from long term via EMS. Patient had a wrist fracture in August by report and had the cast removed 2 days ago. Overnight staff at the facility noticed that the wrist was swollen and center to the emergency department despite the fact that patient denies any pain. She denies any recent trauma or re-injury to the extremity. Related Data Home Medications ?Medication ?Instructions ?Recorded ?Confirmed ?Last Taken ?Type buspirone 5 mg tablet 10 mg PO BID anxiety 01/24/23 10/08/24 Unknown History labetalol 200 mg tablet 300 mg PO BID 08/27/23 10/08/24 08/27/23 History memantine 5 mg tablet 5 mg PO BID 08/27/23 10/08/24 08/27/23 History amlodipine 10 mg tablet 10 mg PO HS 12/14/23 10/08/24 Unknown History losartan 50 mg tablet 50 mg PO DAILY 12/14/23 10/08/24 Unknown History acetaminophen 325 mg tablet 650 mg PO Q4H PRN minor pain, 07/22/24 10/08/24 Unknown History fever greater than 100.4 lanolin alcohols-mineral 1 applic topical PRN PRN dryness 07/22/24 10/08/24 Unknown History oil-w.petrolatum-ceresin topical cream (Eucerin topical cream) loperamide 2 mg capsule 2 mg PO PRN 07/22/24 10/08/24 Unknown History Allergies Allergy/AdvReac Type Severity Reaction Status Date / Time No Known Allergies Allergy Verified 10/08/24 09:46 [facility] Past Medical History Medical History (Updated 10/11/24 @ 00:01 by Isabel Ewing) Anemia of chronic disease Memory loss Cerebrovascular accident End-stage renal disease on hemodialysis Gout Hypertension Surgical History Surgical History (Updated 10/10/24 @ 04:30 by Nita Veliz MD) History of orthopedic surgery ORIF 08/30/24 History of partial replacement of left hip joint using bipolar prosthesis History of parathyroidectomy History of appendectomy History of cholecystectomy History of oophorectomy History of cataract extraction History of colonoscopy Family History Family History Father Family history of elevated blood lipids Hypertension Sibling Family history of elevated blood lipids Hypertension Cancer of jaw Mother Myocardial infarction Social History Social History (Updated 10/10/24 @ 04:28 by Nita Veliz MD) Social History: Surrogate medical decision maker: Agnes Monroy and Stacy Sheppard, daughters. Code status: Do not resuscitate. Smoking status: Unknown if ever smoked Second hand tobacco smoke exposure: No Alcohol intake: former Substance use: never Substance use type: does not use Do You Feel Safe in your Home?: Yes Lack of Transportation: No Lack of Food: Never True Current Housing: I Have Housing Concerned About Future Housing: No Difficulty Paying Gas/Electric Bills: No Difficulty Paying for Meds: No Currently Unemployed: No Education: Bachelor's Degree Difficulty w/ Childcare or Family Care: No Additional living arrangements comments: . Has 2 children. Resident of [facility] since 09/01/23. 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 HEAD: Normocephalic, atraumatic. EYES: Non injected, non icteric ENT: Nares clear, no rhinorrhea or epistaxis. NECK: Supple. CHEST: Speaking in full sentences. No respiratory distress. HEART: Regular rate and rhythm. . ABDOMEN: Soft, nondistended. EXTREMITIES: Normal range of motion. No lower extremity edema. She is able to demonstrate flexion extension as well as some inversion and eversion at the left wrist though there is an obvious bony deformity there. SKIN: Warm, dry, no rash. NEURO: No focal deficits. Alert and oriented x3. PSYCH: Normal mood and affect. Course Vital Signs Vital signs: Vital Signs Temperature 98.8 F 10/10/24 02:36 Pulse Rate 91 10/10/24 02:36 Respiratory Rate 16 10/10/24 02:36 Blood Pressure 172/80 H 10/10/24 02:36 Pulse Oximetry 97 10/10/24 02:36 Oxygen Delivery Room Air 10/10/24 02:36 Temperature 97.4 F L 10/10/24 07:00 Pulse Rate 78 10/10/24 07:00 Respiratory Rate 16 10/10/24 07:00 Blood Pressure 187/78 H 10/10/24 07:00 Pulse Oximetry 98 10/10/24 07:00 Oxygen Delivery Room Air 10/10/24 02:36 MDM - Extremity (Nontraumatic) MDM Narrative Medical decision making narrative: Patient presents from long term via EMS. She had a left wrist fracture in August and the cast was removed by report approximately 2 days ago. Patient has complaints and denies any injury or trauma. She does not have any pain over staff noticed that the wrist appeared more swollen tonight and sent her to the emergency department. In the emergency department she is afebrile with vital signs notable for hypertension. Plain film imaging was obtained and it was advised that these images be pushed/ compared to previous images during interpretation. Reviewed orthopedic surgery clinic note from 10/08/2024 as below. Patient otherwise stable to return to her long term facility. Medical Records Attestation: I reviewed the patient's medical records. Medical records narrative: Reviewed clinic note from Dr. Pawan Yanez, orthopedic surgeon, on 10/08/2024 when she had the splint/ cast removed and he had commented that it had healed with deformity but should improve functionally. Imaging Data Radiologist's impression: Subacute dorsal angulated and dorsally displaced fracture the distal radius, essentially stable from prior exam. Probable ulnar styloid process fracture, also unchanged. There is posttraumatic positive ulnar variance. Discharge Plan Discharge Clinical Impression: History of wrist fracture, Deformity of wrist Patient Disposition: NH Intermediate/Asst Living Condition: Stable Instructions: Antibiotic Form Additional Instructions: X-ray does not appear to have any acute process. Orthopedic surgeon Dr. Yanez had commented in note 10/08/24 that the wrist had healed with deformity but that it should improve functionally. can follow-up as needed with him. Return to the emergency department with any new or worsening symptoms. Patient Language: Nicarag[place] Prescriptions: No Action buspirone 5 mg tablet 10 mg PO BID Rx Instructions: 06:30-09:30 and 16:00-18:00 enoxaparin 30 mg/0.3 mL Syringe 30 mg subcut DAILY 30 Days Qty: 9 0RF ferrous sulfate 325 mg (65 mg iron) Tablet,Delayed Release (Dr/Ec) 325 mg PO BID Qty: 60 0RF oxycodone 5 mg capsule 2.5 mg PO Q6H PRN (Reason: pain) Qty: 7 0RF labetalol 200 mg tablet 300 mg PO BID Rx Instructions: 06:30-09:30 and 16:00-18:00 memantine 5 mg Tablet 5 mg PO BID Rx Instructions: 07:00-10:00 and 16:00-18:00 amlodipine 10 mg tablet 10 mg PO HS Rx Instructions: 19:00-22:00 losartan 50 mg tablet 50 mg PO DAILY Rx Instructions: 08:00 cefdinir 300 mg capsule 300 mg PO DAILY Qty: 4 0RF Rx Instructions: Tuesday, Tuesday, Tuesday after dialysis acetaminophen 325 mg Tablet 650 mg PO Q4H PRN (Reason: minor pain, fever greater than 100.4) loperamide 2 mg Capsule 2 mg PO PRN Rx Instructions: 2 capsules after 1st loose stool, then 1 capsule after each subsequent loose stool, but not to exceed 4 capsules in 24 hours Eucerin Cream 1 applic TOPICAL PRN PRN (Reason: dryness) Rx Instructions: 1 application BID PRN to affected areas for dryness Follow-up/Referrals: Pawan Yanez [Other] PHYSICIAN NOT ON STAFF,NONSTAFF [Primary Care Provider] - Stand Alone Forms: Long-Term Discharge Time of Disposition: 06:37
[2024-10-10 06:30] VITALS: BP 190/77; PULSE 91; RESP 13; O2SAT 96
[2024-10-10 07:00] VITALS: BP 187/78; PULSE 78; RESP 16; TEMP 36.3; O2SAT 98
== END 2024-10-10 09:13 ==
PROVIDERS: Emergency Provider Student in an Organized Health Care Education/Training Program
DX: S52.592D Other fractures of lower end of left radius, subsequent encounter for closed fracture with routine healing (principal); I12.0 Hypertensive chronic kidney disease with stage 5 chronic kidney disease or end stage renal disease; N18.6 End stage renal disease; Z99.2 Dependence on renal dialysis; D63.8 Anemia in other chronic diseases classified elsewhere; M10.9 Gout, unspecified; Z96.642 Presence of left artificial hip joint; Z86.73 Personal history of transient ischemic attack (TIA), and cerebral infarction without residual deficits; Z90.89 Acquired absence of other organs; Z98.49 Cataract extraction status, unspecified eye; Z79.899 Other long term (current) drug therapy; X58.XXXD Exposure to other specified factors, subsequent encounter
CPT/HCPCS: 73110; 99283

== ENCOUNTER 2024-10-12 14:26 | Inpatient (IN) | payer MEDICARE, SELFPAY ==
[2024-10-12] VITALS (30 sets, daily range): BP systolic 125–209; BP diastolic 58–93; PULSE 86–143; RESP 20–35; TEMP 36.7–38.8; O2SAT 89–100; BMI 17.7
--- NOTE | ~2024-10-12 | XR_ITS ---
Portable chest x-ray Comparison: 10/13/2024 Clinical History: Hypoxia Findings: Hazy bibasilar airspace disease, right worse than left, is present, similar to minimally w orsened from prior exam. No definite pleural effusion. Cardiomediastinal silhouette is stable. Bones and soft tissues are unremarkable. Impression: Stable to mildly worsened bibasilar airspace disease, right worse than left. Findings could reflect p ulmonary edema versus pneumonia. Correlate clinically. Reviewed, dictated and finalized at location M. NOLOGY TEACHER Impression: Stable to mildly worsened bibasilar airspace disease, right worse than left. Fi ndings could reflect pulmonary edema versus pneumonia. Correlate clinically.
--- NOTE | ~2024-10-12 | CT_ITS ---
EXAMINATION: CTA chest PE protocol DATE: 10/12/2024 16:49 INDICATION: Hypoxia. TECHNIQUE: Computed tomography angiography (CTA) of the chest was performed with 100 mL Omnipaque-350 intravenous contrast timed to evaluate the pulmonary arteries. Coronal maximum intensity projection 3D-reconstructions were created by the technologist. Automated exposure control and iterative reconst ruction technique were employed. The dose-length product was 214.11 mGy-cm. COMPARISON: CT abdomen and pelvis 12/14/2023 FINDINGS: There are airspace opacities in right middle lobe and right lower lobe, consistent with pne umonia. There is mild atelectasis bilaterally. No pleural effusion. The heart size is normal. There a re coronary artery calcifications. No pericardial effusion. There is no pulmonary embolus. There are changes of cholecystectomy. There is mild chronic height loss of multiple vertebral bodies. There is moderate thoracic spondylosis. IMPRESSION: 1. No pulmonary embolus. Sensitivity is moderately decreased by motion artifact. 2. Pneumonia in right middle lobe and right lower lobe. Reviewed, dictated and finalized at location A. R BUILDER WINDER IMPRESSION: 1. No pulmonary embolus. Sensitivity is moderately decreased by motion artifact . 2. Pneumonia in right middle lobe and right lower lobe.
--- NOTE | ~2024-10-12 | XR_ITS ---
EXAMINATION: XR chest 1V portable DATE: 10/13/2024 06:01 INDICATION: Pneumonia and hypoxia TECHNIQUE: frontal view of the chest was obtained. COMPARISON: Chest radiograph dated 08/28/[address] dated 10/12/2024 FINDINGS: Chronic mild elevation of the left hemidiaphragm. Persistent consolidation and groundglass opacity in the right lower lung zone consistent with pneumonia. More subtle opacities at the right upper and le ft lower lung zones which could represent atelectasis or additional pneumonia. Likely small right ple ural effusion. No pneumothorax or left-sided pleural effusion. Heart size is normal. Cholecystectomy clips in right upper quadrant. Severe bilateral glenohumeral osteoarthritis. IMPRESSION: 1. Consolidation right lower lung zone consistent with pneumonia. 2. More subtle opacities in the right upper and left lower lung zones which could represent atelectas is or additional pneumonia. Reviewed, dictated and finalized at location A. 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 Consolidation right lower lung zone consistent with pneumonia. 2. More subtle opacities in the right upper and left lower lung zones which cou ld represent atelectasis or additional pneumonia.
--- NOTE | 2024-10-12 14:37 | ECG_ITS ---
Test Date: 2024-10-12 16:18:28 Measurements Intervals [place] Rate: 118 P: 75 TN: 178 QRS: 24 QRSD: 90 T: 41 QT: 297 QTc: 416 Interpretive Statements SINUS TACHYCARDIA POSSIBLE LEFT ATRIAL ENLARGEMENT [-0.1mV P WAVE IN V1/V2] Compared to ECG 08/28/2024 13:19:13 Sinus rhythm no longer present Electronically Signed On 10-13-2024 12:59:44 [employer] by Kody Rivas M.D.
[2024-10-12] MEDS: IPRATROPIUM 0.5 MG/ALBUTEROL SULFATE 2.5 MG AMPUL.NEB 3 ML INHALATION (14:52)
[2024-10-12 15:13] LABS: Basophils Absolute Auto 0.1 K/mm3 (0.0-0.1); Basophils Percent Auto 1.3 % (0.2-1.2); Eosinophils Absolute Auto 0.3 K/mm3 (0-0.3); Eosinophils Percent Auto 5.7 % (0-4.4); Hematocrit 32.4 % (37.0-47.0); Hemoglobin 10.1 g/dL (12.0-15.0); Immature Granulocyte Absolute 0.02 K/mm3 (0.00-0.031); Immature Granulocyte Percent A 0.4 % (0-0.5); Lymphocytes Absolute Auto 0.94 K/mm3 (0.9-3.2); Lymphocytes Percent Auto 19.7 % (18.3-44.2); Mean Corpuscular HGB Conc 31.2 g/dl (32-36); Mean Corpuscular Hemoglobin 29.7 pg (26-34); Mean Corpuscular Volume 95.3 fl (80-100); Mean Platelet Volume 8.4 fl (7.4-10.4); Monocytes Absolute Auto 0.7 K/mm3 (0.1-0.6); Monocytes Percent Auto 13.9 % (2.6-8.5); Neutrophils Absolute Auto 2.8 K/mm3 (1.3-6.7); Platelet Count Result 186 k/mm3 (150-375); Red Cell Distribution Width 15.6 % (11.5-14.5); White Blood Count 4.8 K/mm3 (4.5-10.0)
[2024-10-12 15:27] LABS: D Dimer 3.89 ug/mL (<0.48)
[2024-10-12 15:31] LABS: Alanine Aminotransferase 11 U/L (6-35); Albumin Level 3.9 g/dL (3.5-5.1); Alkaline Phosphatase 137 U/L (38-126); Anion Gap 6 mmol/L (4-12); Aspartate Amino Transferase 22 U/L (14-36); Bilirubin,Total 0.6 mg/dL (0.2-1.3); Blood Urea Nitrogen 25 mg/dL (7-17); Calcium 9.4 mg/dL (8.4-10.2); Carbon Dioxide 35 mmol/L (22-30); Chloride 95 mmol/L (98-107); Estimated CRCL calculation 11 ml/min; Estimated Glomerular Filt Rate 13; Glucose 118 mg/dL (65-110); Magnesium 1.8 mg/dL (1.6-2.3); Sodium 136 mmol/L (137-145)
--- NOTE | 2024-10-12 15:31 | ED.ABDPAIN ---
HPI - Abdominal Pain General Chief Complaint: Shortness of Breath/Dyspnea Stated Complaint: dyspnea Time Seen by Provider: 10/12/24 14:27 History of Present Illness HPI narrative: Patient brought here from dialysis which was ended [address] and because she started having new shortness of breath. Over last day has been having increased cough and shortness of breath. Denies any chest pain. Recent hip fracture Related Data Home Medications ?Medication ?Instructions ?Recorded ?Confirmed ?Last Taken ?Type buspirone 5 mg tablet 10 mg PO BID anxiety 01/24/23 10/08/24 Unknown History labetalol 200 mg tablet 300 mg PO BID 08/27/23 10/08/24 08/27/23 History memantine 5 mg tablet 5 mg PO BID 08/27/23 10/08/24 08/27/23 History amlodipine 10 mg tablet 10 mg PO HS 12/14/23 10/08/24 Unknown History losartan 50 mg tablet 50 mg PO DAILY 12/14/23 10/08/24 Unknown History acetaminophen 325 mg tablet 650 mg PO Q4H PRN minor pain, 07/22/24 10/08/24 Unknown History fever greater than 100.4 lanolin alcohols-mineral 1 applic topical PRN PRN dryness 07/22/24 10/08/24 Unknown History oil-w.petrolatum-ceresin topical cream (Eucerin topical cream) loperamide 2 mg capsule 2 mg PO PRN 07/22/24 10/08/24 Unknown History Allergies Allergy/AdvReac Type Severity Reaction Status Date / Time No Known Allergies Allergy Verified 10/12/24 17:28 Review of Systems Review of Systems: All systems reviewed & are unremarkable except as noted in HPI and below PMFSH Past Medical History Medical History (Updated 10/12/24 @ 19:13 by Karen Hernandez MD) Anemia of chronic disease Memory loss Cerebrovascular accident End-stage renal disease on hemodialysis Gout Hypertension Surgical History Surgical History (Updated 10/10/24 @ 04:30 by Nita Veliz MD) History of orthopedic surgery ORIF 08/30/24 History of partial replacement of left hip joint using bipolar prosthesis History of parathyroidectomy History of appendectomy History of cholecystectomy History of oophorectomy History of cataract extraction History of colonoscopy Family History Family History Father Family history of elevated blood lipids Hypertension Sibling Family history of elevated blood lipids Hypertension Cancer of jaw Mother Myocardial infarction Social History Social History (Updated 10/10/24 @ 04:28 by Nita Veliz MD) Social History: Surrogate medical decision maker: Agnes Monroy and Stacy Shepaprd, daughters. Code status: Do not resuscitate. Smoking status: Unknown if ever smoked Second hand tobacco smoke exposure: No Alcohol intake: former Substance use: never Substance use type: does not use Do You Feel Safe in your Home?: Yes Lack of Transportation: No Lack of Food: Never True Current Housing: I Have Housing Concerned About Future Housing: No Difficulty Paying Gas/Electric Bills: No Difficulty Paying for Meds: No Currently Unemployed: No Education: Bachelor's Degree Difficulty w/ Childcare or Family Care: No Additional living arrangements comments: . Has 2 children. Resident of [facility] since 09/01/23. 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 EYES: EOMI, conjunctiva normal ENT: Hearing grossly intact LUNGS: Some labored respirations, diminished lung sounds HEART: [Regular rate and rhythm] ABD: [Soft], [nontender to palpation] EXT: Normal range of motion SKIN: [No rashes or lesions.] NEURO: [Alert. No gross focal sensory or strength deficits.] PSYCH: Normal affect Course Vital Signs Vital signs: Vital Signs Temperature 98.1 F 10/12/24 14:26 Pulse Rate 86 10/12/24 14:26 Respiratory Rate 22 H 10/12/24 14:26 Blood Pressure 156/69 H 10/12/24 14:26 Pulse Oximetry 98 10/12/24 14:26 Oxygen Delivery Nasal Cannula 10/12/24 14:26 Oxygen Flow Rate 4 10/12/24 14:26 Temperature 98.0 F 10/12/24 17:21 Pulse Rate 115 H 10/12/24 18:14 Respiratory Rate 33 H 10/12/24 18:14 Blood Pressure 209/84 H 10/12/24 16:26 Pulse Oximetry 95 10/12/24 18:14 Oxygen Delivery BiPAP 10/12/24 18:14 Oxygen Flow Rate 6 10/12/24 17:47 Fraction of Inspired Oxygen 60 10/12/24 18:14 MDM - Abdominal Pain MDM Narrative Medical decision making narrative: Patient presents with increased shortness of breath from dialysis, has a productive cough. On exam she has some labored respirations, diminished lung sounds. Concern for pneumonia, ACS, PE given report of recent surgery. Discussed with seafood service team member for arranging dialysis, and to get okay for CT PE and Lasix trial CT PE does show right-sided pneumonia, she is started on antibiotics. Discussed with hospitalist for admission On re-evaluation she is not having increased shortness of breath and labored respirations, crackly, I am concerned she is now very volume overloaded, patient and tachycardic, will give a small dose of her home labetalol, start nitroglycerin, put her on BiPAP. multiple discussions patient from nursing staff and myself, which she would like now to be full code with intubation and CPR if necessary. Discussed with seafood service team member, unfortunately cannot do overnight dialysis Discussed with elementary reading tutor will admit to ICU On re-evaluation, patient states that she actually feels much better now. ABG on my independent interpretation pH 7.5, pCO2 31, PO2 105, patient clearly hyperventilating Lab Data 10/12/24 15:05 10/12/24 15:05 Labs: Lab Results 10/12/24 10/12/24 10/12/24 Range/Units 15:05 15:23 18:31 WBC 4.8 (4.5-10.0) K/mm3 RBC 3.40 L (4.2-5.4) M/mm3 Hgb 10.1 L (12.0-15.0) g/dL Hct 32.4 L (37.0-47.0) % MCV 95.3 (80-100) fl MCH 29.7 (26-34) pg MCHC 31.2 L (32-36) g/dl RDW 15.6 H (11.5-14.5) % Plt Count 186 (150-375) k/mm3 MPV 8.4 (7.4-10.4) fl Immature Gran % (Auto) 0.4 (0-0.5) % Neut % (Auto) 59.0 (45.5-73.1) % Lymph % (Auto) 19.7 (18.3-44.2) % Powell % (Auto) 13.9 H (2.6-8.5) % Eos % (Auto) 5.7 H (0-4.4) % Baso % (Auto) 1.3 H (0.2-1.2) % Lymph # (Auto) 0.94 (0.9-3.2) K/mm3 Powell # (Auto) 0.7 H (0.1-0.6) K/mm3 Eos # (Auto) 0.3 (0-0.3) K/mm3 Baso # (Auto) 0.1 (0.0-0.1) K/mm3 Abs Immat Gran (auto) 0.02 (0.00-0.031) K/mm3 Absolute Neuts (auto) 2.8 (1.3-6.7) K/mm3 Absolute Nucleated RBC 0.000 (0.0-0.012) K/mm3 Nucleated RBC % 0.0 (0.0-0.2) % D-Dimer 3.89 H (<0.48) ug/mL Expiratory Pressure 6 cmH2O Inspiratory Pressure 12 cmH2O Sodium 136 L (137-145) mmol/L Potassium 4.0 (3.4-5.0) mmol/L Chloride 95 L (98-107) mmol/L Carbon Dioxide 35 H (22-30) mmol/L Anion Gap 6 (4-12) mmol/L BUN 25 H D (7-17) mg/dL Creatinine 3.30 H (0.7-1.0) mg/dL Estim Creat Clear Calc 11 ml/min Estimated GFR 13 L (59 - ) Glucose 118 H (65-110) mg/dL Calcium 9.4 (8.4-10.2) mg/dL Magnesium 1.8 (1.6-2.3) mg/dL Total Bilirubin 0.6 (0.2-1.3) mg/dL AST 22 (14-36) U/L ALT 11 (6-35) U/L Alkaline Phosphatase 137 H (38-126) U/L Troponin I < 0.012 (0.000-0.034) ng/mL NT-Pro-B Natriuret Pep 9870 H (19.9-100) pg/mL Total Protein 7.0 (6.3-8.2) g/dL Albumin 3.9 (3.5-5.1) g/dL Influenza A (RT-PCR) Negative (Negative) Influenza B (RT-PCR) Negative (Negative) RSV (RT-PCR) Negative (Negative) SARS-CoV-2 RNA (RT-PCR) Negative (Negative) ABG Data ABG results: 10/12/24 18:31 Puncture Site Right radial ABG pH 7.541 H* ABG pCO2 30.9 L ABG pO2 105.8 H ABG PO2/FiO2 Ratio 1.76 ABG HCO3 25.9 ABG O2 Saturation 98.4 ABG O2 Content 15.1 L ABG Base Excess 3.7 A-a Gradient 288.0 Oxyhemoglobin 97.6 Total Hemoglobin 10.9 L O2 Delivery Device Bipap O2 Liters/Min Not Reportable FiO2 60 Imaging Data Radiologist's impression: ITS Impressions Chest CTA 10/12/24 16:52 IMPRESSION: 1. No pulmonary embolus. Sensitivity is moderately decreased by motion artifact. 2. Pneumonia in right middle lobe and right lower lobe. Critical Care Time Critical Care Time Critical Care Time: Yes Total Critical Care Time: 71 Discharge Plan Discharge Clinical Impression: Pneumonia, Acute hypoxemic respiratory failure Patient Disposition: Still a Patient Condition: Critical Patient Language: [place] African Prescriptions: No Action buspirone 5 mg tablet 10 mg PO BID Rx Instructions: 06:30-09:30 and 16:00-18:00 enoxaparin 30 mg/0.3 mL Syringe 30 mg subcut DAILY 30 Days Qty: 9 0RF ferrous sulfate 325 mg (65 mg iron) Tablet,Delayed Release (Dr/Ec) 325 mg PO BID Qty: 60 0RF oxycodone 5 mg capsule 2.5 mg PO Q6H PRN (Reason: pain) Qty: 7 0RF labetalol 200 mg tablet 300 mg PO BID Rx Instructions: 06:30-09:30 and 16:00-18:00 memantine 5 mg Tablet 5 mg PO BID Rx Instructions: 07:00-10:00 and 16:00-18:00 amlodipine 10 mg tablet 10 mg PO HS Rx Instructions: 19:00-22:00 losartan 50 mg tablet 50 mg PO DAILY Rx Instructions: 08:00 cefdinir 300 mg capsule 300 mg PO DAILY Qty: 4 0RF Rx Instructions: Tuesday, Tuesday, Tuesday after dialysis acetaminophen 325 mg Tablet 650 mg PO Q4H PRN (Reason: minor pain, fever greater than 100.4) loperamide 2 mg Capsule 2 mg PO PRN Rx Instructions: 2 capsules after 1st loose stool, then 1 capsule after each subsequent loose stool, but not to exceed 4 capsules in 24 hours Eucerin Cream 1 applic TOPICAL PRN PRN (Reason: dryness) Rx Instructions: 1 application BID PRN to affected areas for dryness Follow-up/Referrals: UNKNOWN,DOCTOR [Primary Care Provider] -
[2024-10-12 15:35] LABS: NT Pro B Type Natriuretic Pept 9870 pg/mL (19.9-100); Troponin I < 0.012 ng/mL (0.000-0.034)
[2024-10-12] MEDS: FUROSEMIDE INJ 40 MG/4 ML VIAL IV PUSH (15:57)
[2024-10-12 16:12] LABS: Influenza A QL RT-PCR Negative (Negative); Influenza B QL RT-PCR Negative (Negative); RSV RNA, RT-PCR Negative (Negative); SARS-CoV-2 RNA PCR Negative (Negative)
--- NOTE | 2024-10-12 16:55 | PC.NURSE ---
per pt request called daughters Stacy and Agnes @[phone] to update them. both family members did not answer.
--- NOTE | 2024-10-12 17:17 | PC.NURSE ---
pt is tachycardic around 140's. notified provider who went bedside and patient denies any discomfort, anxiety, or chest pain. provider states new medication orders coming.
--- NOTE | 2024-10-12 17:35 | PC.NURSE ---
family member Stacy called at [phone] and this RN updated family member per pt request
[2024-10-12] MEDS: LABETALOL HCL INJ 100 MG/20 ML VIAL 20 MG IV PUSH (17:42)
[2024-10-12] MEDS: AZITHROMYCIN 500 MG/NS 250 ML 500 MG/250 ML BAG 250 MG IVPB (17:43)
[2024-10-12] MEDS: NITROGLYCERIN OINTMENT 1 INCH DOSE TRANSDERM (18:10)
[2024-10-12 18:36] LABS: Base Excess ABG 3.7 mEq/l (+/-2.0); Fractional Inspired Oxygen 60 %; HCO3 ABG 25.9 mEq/l (22.0-26.0); Oxygen Content ABG 15.1 %vol (16.0-22.0); Oxygen Saturation ABG 98.4 % (95.0-100.0); Oxyhemoglobin 97.6 % THb (90.0-100.0); PCO2 ABG 30.9 mmHg (35.0-45.0); PO2 ABG 105.8 mmHg (80.0-100.0); PO2 FiO2 Ratio Arterial Blood 1.76 %; Total Hemoglobin 10.9 g/dL (12.0-18.0)
[2024-10-12 18:37] LABS: Modified Allen's Test Pass; Site Drawn RIGHT RADIAL; pH ABG 7.541 (7.350-7.450)
[2024-10-12 18:38] LABS: Device BIPAP; Expiratory Pressure 6 cmH2O; Inspiratory Pressure 12 cmH2O
--- NOTE | 2024-10-12 20:31 | P.HP_ITS ---
H&P: HPI History of Present Illness Date/Time: 10/12/24 20:31 Chief Complaint: sob Narrative: This is an 83-year-old female with past medical history significant for dementia, hypertension, End-stage renal disease on hemodialysis. Patient was undergoing dialysis when she became ill was brought to the emergency room for evaluation. Most of the history has been obtained from reviewing medical records as patient is on BiPAP at the time of my visit. Preliminary workup was significant for chest x-ray with infiltrates, a urinalysis was significant as well when Quijano was placed patient had pus material drained. While in the emergency room patient became progressively ill with respiratory failure and placed on BiPAP. Patient has been admitted for further evaluation management and treatment. EXAMINATION: CTA chest PE protocol DATE: 10/12/2024 16:49 INDICATION: Hypoxia. TECHNIQUE: Computed tomography angiography (CTA) of the chest was performed with 100 mL Omnipaque-350 intravenous contrast timed to evaluate the pulmonary arteries. Coronal maximum intensity projection 3D-reconstructions were created by the technologist. Automated exposure control and iterative reconstruction technique were employed. The dose-length product was 214.11 mGy-cm. COMPARISON: CT abdomen and pelvis 12/14/2023 FINDINGS: There are airspace opacities in right middle lobe and right lower lobe, consistent with pneumonia. There is mild atelectasis bilaterally. No pleural effusion. The heart size is normal. There are coronary artery calcifications. No pericardial effusion. There is no pulmonary embolus. There are changes of cholecystectomy. There is mild chronic height loss of multiple vertebral bodies. There is moderate thoracic spondylosis. IMPRESSION: 1. No pulmonary embolus. Sensitivity is moderately decreased by motion artifact. 2. Pneumonia in right middle lobe and right lower lobe. Review of Systems Review of Systems: ROS unobtainable: Yes unobtainable due to medical condition (on BiPAP) [facility] Past Medical History Medical History (Updated 10/12/24 @ 19:13 by Karen Hernandez MD) Anemia of chronic disease Memory loss Cerebrovascular accident End-stage renal disease on hemodialysis Gout Hypertension Surgical History Surgical History (Updated 10/10/24 @ 04:30 by Nita Veliz MD) History of orthopedic surgery ORIF 08/30/24 History of partial replacement of left hip joint using bipolar prosthesis History of parathyroidectomy History of appendectomy History of cholecystectomy History of oophorectomy History of cataract extraction History of colonoscopy Family History Family History Father Family history of elevated blood lipids Hypertension Sibling Family history of elevated blood lipids Hypertension Cancer of jaw Mother Myocardial infarction Social History Social History (Updated 10/10/24 @ 04:28 by Nita Veliz MD) Social History: Surrogate medical decision maker: Agnes Monroy and Stacy Sheppard, daughters. Code status: Do not resuscitate. Smoking status: Never smoker Second hand tobacco smoke exposure: No Alcohol intake: never Substance use: never Substance use type: does not use Do You Feel Safe in your Home?: Yes Lack of Transportation: No Lack of Food: Never True Current Housing: I Have Housing Concerned About Future Housing: No Difficulty Paying Gas/Electric Bills: No Difficulty Paying for Meds: No Currently Unemployed: No Education: Bachelor's Degree Difficulty w/ Childcare or Family Care: No Additional living arrangements comments: . Has 2 children. Resident of [facility] since 09/01/23. 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: No Meds Home Medications and Allergies Home Medications ?Medication ?Instructions ?Recorded ?Confirmed ?Type buspirone 5 mg tablet 10 mg PO BID anxiety 01/24/23 10/13/24 History labetalol 200 mg tablet 300 mg PO Q12H 08/27/23 10/13/24 History memantine 5 mg tablet 5 mg PO Q12H 08/27/23 10/13/24 History amlodipine 10 mg tablet 10 mg PO HS 12/14/23 10/13/24 History losartan 50 mg tablet 50 mg PO DAILY 12/14/23 10/13/24 History cefdinir 300 mg capsule 300 mg PO DAILY #4 caps 12/16/23 10/13/24 Rx acetaminophen 325 mg tablet 650 mg PO Q4H minor pain, fever 07/22/24 10/13/24 History greater than 100.4 lanolin alcohols-mineral 1 applic topical PRN PRN dryness 07/22/24 10/13/24 History oil-w.petrolatum-ceresin topical cream (Eucerin topical cream) loperamide 2 mg capsule 2 mg PO PRN 07/22/24 10/13/24 History enoxaparin 30 mg/0.3 mL 30 mg (0.3 mL) subcut DAILY 30 09/02/24 10/13/24 Rx subcutaneous syringe days #9 mL ferrous sulfate 325 mg (65 mg 325 mg PO BID #60 tabs 09/02/24 10/13/24 Rx iron) tablet,delayed release oxycodone 5 mg capsule 2.5 mg (1/2 x 5 mg) PO Q6H PRN 09/02/24 10/13/24 Rx pain #7 caps Allergies Allergy/AdvReac Type Severity Reaction Status Date / Time No Known Allergies Allergy Verified 10/12/24 17:28 Vital Signs Vital Signs - 24 hr 10/12/24 14:26 10/12/24 14:36 10/12/24 14:56 Temperature 98.1 F Pulse Rate 86 87 Respiratory Rate 22 H 20 Blood Pressure 156/69 H Pulse Oximetry 98 98 Oxygen Delivery Nasal Cannula Nasal Cannula Oxygen Flow Rate 4 4 Fraction of Inspired Oxygen 10/12/24 14:57 10/12/24 15:02 10/12/24 15:06 Temperature Pulse Rate 89 92 Respiratory Rate 20 26 H Blood Pressure 162/72 H Pulse Oximetry 100 98 Oxygen Delivery Nasal Cannula Oxygen Flow Rate 4 Fraction of Inspired Oxygen 10/12/24 15:24 10/12/24 15:33 10/12/24 16:26 Temperature Pulse Rate 93 100 125 H Respiratory Rate 20 23 H 32 H Blood Pressure 175/93 H 201/78 H 209/84 H Pulse Oximetry 99 100 97 Oxygen Delivery Oxygen Flow Rate Fraction of Inspired Oxygen 10/12/24 17:21 10/12/24 17:21 10/12/24 17:42 Temperature 98.0 F Pulse Rate 142 H 143 H Respiratory Rate 20 Blood Pressure Pulse Oximetry 98 Oxygen Delivery Oxygen Flow Rate Fraction of Inspired Oxygen 10/12/24 17:47 10/12/24 18:06 10/12/24 18:10 Temperature Pulse Rate 111 H Respiratory Rate 30 H Blood Pressure 127/71 Pulse Oximetry 89 L 99 99 Oxygen Delivery Nasal Cannula BiPAP Oxygen Flow Rate 6 Fraction of Inspired Oxygen 10/12/24 18:14 10/12/24 18:14 10/12/24 18:35 Temperature Pulse Rate 115 H 115 H 113 H Respiratory Rate 33 H 33 H 30 H Blood Pressure 125/58 L Pulse Oximetry 95 95 100 Oxygen Delivery BiPAP BiPAP Oxygen Flow Rate Fraction of Inspired Oxygen 60 10/12/24 19:00 10/12/24 19:20 10/12/24 19:45 Temperature Pulse Rate 117 H 121 H 124 H Respiratory Rate 31 H 30 H 35 H Blood Pressure 129/62 146/70 H 150/73 H Pulse Oximetry 100 100 99 Oxygen Delivery Oxygen Flow Rate Fraction of Inspired Oxygen Exam 2 Narrative: sitting in bed Const: General: cooperative, comfortable, well developed, alert, awake, acute distress (on BiPAP) mild, ill appearing acutely and average body habitus Nutritional Appearance: average body habitus Orientation/consciousness: oriented to person and oriented to place Other: on BiPAP HENMT: Head: normal to inspection, normocephalic and atraumatic Ears: hearing grossly normal bilaterally Face/Nose/Sinus: normal facial exam Face and sinus: normal facial exam Eyes: General: appearance normal, both eyes and all related structures Pupils: Equal, round and reactive pupils present EOM: EOMs intact bilaterally Neck: Neck: full ROM, no lymphadenopathy and no JVD Thyroid: thyroid normal Lymphatic: no lymphadenopathy noted Resp: Effort & Inspection: normal respiratory effort and able to speak in complete sentences Auscultation: rales, diminished lung sounds and other (coarse breath sounds) Cardio: Jugular venous distension: no JVD Rate: regular rate Rhythm: regular rhythm Heart sounds: S1 normal heart sound present and S2 normal heart sound present GI: GI Palp: Yes Soft to palpation and Yes No hepatosplenomegaly present : General: Yes deferred Skin: Rashes: no rashes Wounds: no wounds Neuro: General: oriented to person, oriented to place and CN's II-XI intact bilaterally Cranial nerves: Yes CN's II-XII intact bilaterally and Yes Equal, round and reactive pupils present Cognition (Neuro): normal cognition Speech: normal speech Motor exam (neuro): 5/5 motor strength present throughout Extrem: General: normal to inspection, full ROM, no joint enlargement and no pedal edema H&P: Results Labs Labs: Short CBC 10/12/24 Range/Units 15:05 WBC 4.8 (4.5-10.0) K/mm3 Hgb 10.1 L (12.0-15.0) g/dL Hct 32.4 L (37.0-47.0) % Plt Count 186 (150-375) k/mm3 [facility] 10/12/24 15:05 Sodium 136 L Potassium 4.0 Chloride 95 L Carbon Dioxide 35 H BUN 25 H D Creatinine 3.30 H Glucose 118 H Calcium 9.4 Cardiac Enzymes 10/12/24 Range/Units 15:05 Troponin I < 0.012 (0.000-0.034) ng/mL Liver Function 10/12/24 Range/Units 15:05 Total Bilirubin 0.6 (0.2-1.3) mg/dL AST 22 (14-36) U/L ALT 11 (6-35) U/L Alkaline Phosphatase 137 H (38-126) U/L Albumin 3.9 (3.5-5.1) g/dL Assessment and Plan Assessment and plan (1) Acute hypoxemic respiratory failure: Code(s): J96.01 - Acute respiratory failure with hypoxia Status: Acute Assessment and Plan: Likely secondary to sepsis currently on BiPAP (2) Pneumonia: Code(s): J18.9 - Pneumonia, unspecified organism Status: Acute Assessment and Plan: patient started on Rocephin and Zithromax cultures in progress (3) Hypertension: Code(s): I10 - Essential (primary) hypertension Status: Chronic Assessment and Plan: restart meds as needed currently on hold (4) End-stage renal disease on hemodialysis: Code(s): N18.6 - End stage renal disease; Z99.2 - Dependence on renal dialysis Status: Acute Assessment and Plan: nephrology consult continue dialysis (5) Distal radius fracture, left: Code(s): S52.502A - Unspecified fracture of the lower end of left radius, initial encounter for closed fracture Status: Acute Assessment and Plan: supportive care (6) UTI (urinary tract infection): Qualifiers: Hematuria presence: with hematuria Urinary tract infection type: acute cystitis Qualified Code(s): N30.01 - Acute cystitis with hematuria Code(s): N39.0 - Urinary tract infection, site not specified Status: Acute Assessment and Plan: currently on Rocephin Hospitalist CYDNEY Advance Care Plan I have confirmed that the patient's Advanced Care Plan is present, code status is documented, or surrogate decision maker is listed in patient medical record.: Yes Medication Reconciliation I have utilized all available resources to obtain, update and review the patients current medications (includes all prescriptions, OTC, herbals, cannabis, and nutritional supplements).: Yes
--- NOTE | 2024-10-12 21:10 | PC.NURSE ---
Cleaned up pt with taniya rosales. Pt had large black loose stool. Pt pulled bipap off of her face and refuses to wear it at this time. pt placed on 15L NC, current O2 is 93%
--- NOTE | 2024-10-12 21:45 | ADMGEN ---
This patient, Kirsty Rea, was admitted to Intensive Care Unit-4. Patient/family oriented to hospital policies and general routines including ID bracelet, bed and alarms, visiting hours, pain management, procedures, bathroom and other care routines, personal items, smoking policy, room service/diet, and visiting hours. Information on how to activate the Rapid Response Team has been discussed. Patient/Family are encouraged to report perceived risks to care and to ask questions if they do not understand what they are told or what they should do.
[2024-10-12 23:54] LABS: MRSA (PCR) NOT DETECTED (NOT DETECTE)
[2024-10-13] VITALS (36 sets, daily range): BP systolic 118–164; BP diastolic 50–77; PULSE 102–121; RESP 16–26; TEMP 36.8–38.6; O2SAT 91–100
[2024-10-13] MEDS: ACETAMINOPHEN 650 MG SUPPOSITORY RECTAL (01:57)
[2024-10-13 02:20] LABS: Add Urine Microscopic? YES
[2024-10-13 02:23] LABS: Squamous Epithelial Cell Urine Few /hpf (Few); WBC Clumps Urine Present /HPF; WBC Urine >100 /hpf (0-3)
[2024-10-13 02:24] LABS: Mucus Urine Present /lpf
[2024-10-13 02:26] LABS: Budding Yeast Urine Present /hpf
[2024-10-13] MEDS: SODIUM CHLORIDE 0.9% IV 250 ML 999 ML IV CONT (03:45)
[2024-10-13 04:15] LABS: Basophils Absolute Auto 0.1 K/mm3 (0.0-0.1); Basophils Percent Auto 0.3 % (0.2-1.2); Eosinophils Absolute Auto 0.1 K/mm3 (0-0.3); Eosinophils Percent Auto 0.5 % (0-4.4); Hematocrit 31.6 % (37.0-47.0); Hemoglobin 9.6 g/dL (12.0-15.0); Immature Granulocyte Absolute 0.09 K/mm3 (0.00-0.031); Immature Granulocyte Percent A 0.6 % (0-0.5); Lymphocytes Absolute Auto 0.77 K/mm3 (0.9-3.2); Lymphocytes Percent Auto 4.9 % (18.3-44.2); Mean Corpuscular HGB Conc 30.4 g/dl (32-36); Mean Corpuscular Hemoglobin 29.8 pg (26-34); Mean Corpuscular Volume 98.1 fl (80-100); Mean Platelet Volume 8.8 fl (7.4-10.4); Monocytes Percent Auto 12.9 % (2.6-8.5); Neutrophils Absolute Auto 12.8 K/mm3 (1.3-6.7); Neutrophils Percent Auto 80.8 % (45.5-73.1); Platelet Count Result 161 k/mm3 (150-375); Red Blood Count 3.22 M/mm3 (4.2-5.4); Red Cell Distribution Width 15.6 % (11.5-14.5); White Blood Count 15.8 K/mm3 (4.5-10.0)
[2024-10-13 04:35] LABS: Alanine Aminotransferase 14 U/L (6-35); Albumin Level 3.3 g/dL (3.5-5.1); Alkaline Phosphatase 95 U/L (38-126); Anion Gap 5 mmol/L (4-12); Aspartate Amino Transferase 22 U/L (14-36); Bilirubin,Total 0.6 mg/dL (0.2-1.3); Blood Urea Nitrogen 35 mg/dL (7-17); Calcium 9.4 mg/dL (8.4-10.2); Carbon Dioxide 31 mmol/L (22-30); Chloride 98 mmol/L (98-107); Estimated CRCL calculation 8 ml/min; Estimated Glomerular Filt Rate 10; Glucose 101 mg/dL (65-110); Magnesium 1.7 mg/dL (1.6-2.3); Phosphorus 4.8 mg/dL (2.5-4.5); Potassium 4.5 mmol/L (3.4-5.0); Sodium 134 mmol/L (137-145)
[2024-10-13 04:41] LABS: Anisocytosis 1+; Hypochromasia 1+; Platelet Estimate Decreased (Adequate); Schistocytes None Seen
[2024-10-13 05:03] LABS: Hepatitis B Surface Antigen Negative (Negative)
[2024-10-13 05:32] LABS: Hepatitis B Surface Anti Res Positive
[2024-10-13] MEDS: ALBUMIN HUMAN 25% 25 GM/100 ML 100 ML IVPB ×4 (09:14→23:59)
--- NOTE | 2024-10-13 09:33 | P.CONIN_ITS ---
Assessment and Plan Assessment and plan (1) Acute hypoxemic respiratory failure: Code(s): J96.01 - Acute respiratory failure with hypoxia Status: Acute Assessment and Plan: Acute hypoxic respiratory failure likely related to community-acquired pneumonia -patient with fevers, leukocytosis, chest CTA and chest x-ray show right middle and lower lobe pneumonia -patient started on azithromycin, ceftriaxone and vancomycin (10/12) -patient requiring 3 L supplemental oxygen via nasal cannula O2 sats -will also get dialysis today 10/12/2024: CTA chest did not show any pulmonary embolism, right middle lobe and right lower lobe pneumonia (2) Pneumonia: Code(s): J18.9 - Pneumonia, unspecified organism Status: Acute Assessment and Plan: As above (3) ESRD on hemodialysis: Code(s): N18.6 - End stage renal disease; Z99.2 - Dependence on renal dialysis Status: Acute Assessment and Plan: End-stage renal disease on home dialysis, Tuesday, Tuesday, Fridays -on 10/12: Completed 1/3 of her dialysis session -nephrology has been consulted -patient will get dialysis this morning since she also received contrast for her CTA chest (4) Urinary tract infection: Qualifiers: Urinary tract infection type: site unspecified Hematuria presence: w ithout hematuria Qualified Code(s): N39.0 - Urinary tract infection, site not specified Code(s): N39.0 - Urinary tract infection, site not specified Status: Acute Assessment and Plan: Quijano catheter was inserted and drained purulent drainage. Patient has a history of UTIs in the past according the daughters, also in our system a which have grown E coli and Klebsiella aerogenes, both were pansensitive -continue antibiotics as (5) Hypertension: Code(s): I10 - Essential (primary) hypertension Status: Chronic Assessment and Plan: History of essential hypertension, hold antihypertensives for now blood pressures have stable and patient getting dialysis. -if blood pressures elevated, will add home amlodipine, labetalol, losartan Plan DVT prophylaxis: Heparin subQ Stress ulcer prophylaxis: Not indicated Nutrition: Will try clear liquids and advance as tolerated Code Status: Full code Critical Care Time Spent: 49 minutes Due to a high probability of clinically significant, life threatening deterioration, the patient required my highest level of preparedness to intervene emergently and I personally spent this critical care time directly and personally managing the patient. This critical care time included obtaining a history; examining the patient; pulse oximetry; ordering and review of studies; arranging urgent treatment with development of a management plan; evaluation of patient's response to treatment; frequent reassessment; and discussions with other providers. It was exclusive of separately billable procedures and treating other patients and teaching time. Please see Assessment and Plan section and the rest of the note for further information on patient assessment and treatment This dictation may have been done utilizing a voice recognition system. Attempts have been made to correct errors. However, there may be uncorrected grammatical, spelling, and recognitions errors present. Horseradish Maker Consult Note Consult date: 10/13/24 Reason for consult: Shortness of breath HPI: Kirsty Rea is a 83 year old female with past medical history of anemia of chronic disease, CVA, end-stage renal disease on hemodialysis, essential hypertension presented the ED on 10/12/2024 from the dialysis center which ended [address] because she started having new onset shortness of breath. According to the records patient was having increased cough and shortness of breath over the last 1 day. Denies any chest pains. In the ER she had some labile respirations which improved with placing patient on the BiPAP. 10/12/24: CTA chest did not show any pulmonary embolism, right middle lobe and right lower lobe pneumonia. WBC count was 4.8 which increased to 15.8 this morning. Hemoglobin and platelets are stable. D-dimer was 3.89. Electrolytes within normal limits, patient is a hemodialysis patient, creatinine is 4.10. Quijano catheter was inserted with purulent drainage noted. Patient negative for influenza A and B, RSV and SARS-CoV-2 PCR. Patient was hemodynamically stable, started on azithromycin, ceftriaxone and vancomycin and transfer the ICU for further management Patient seen and examined this morning in the ICU, elderly female, slightly agitated because she is having discomfort with the urinary catheter. She is able to answer most of my questions but is pleasantly confused she denies any chest pain, shortness of breath, abdominal pain, nausea vomiting. T-max of 101.9?, hemodynamically stable, anuric. Follows simple commands Review of Systems 2 Review of Systems: All systems reviewed & are unremarkable except as noted in HPI and below PMFSH Past Medical History Medical History (Updated 10/12/24 @ 19:13 by Karen Hernandez MD) Anemia of chronic disease Memory loss Cerebrovascular accident End-stage renal disease on hemodialysis Gout Hypertension Surgical History Surgical History (Updated 10/10/24 @ 04:30 by Nita Veliz MD) History of orthopedic surgery ORIF 08/30/24 History of partial replacement of left hip joint using bipolar prosthesis History of parathyroidectomy History of appendectomy History of cholecystectomy History of oophorectomy History of cataract extraction History of colonoscopy Family History Family History Father Family history of elevated blood lipids Hypertension Sibling Family history of elevated blood lipids Hypertension Cancer of jaw Mother Myocardial infarction Social History Social History (Updated 10/10/24 @ 04:28 by Nita Veliz MD) Social History: Surrogate medical decision maker: Agnes Monroy and Stacy Sheppard, daughters. Code status: Do not resuscitate. Smoking status: Never smoker Second hand tobacco smoke exposure: No Alcohol intake: never Substance use: never Substance use type: does not use Do You Feel Safe in your Home?: Yes Lack of Transportation: No Lack of Food: Never True Current Housing: I Have Housing Concerned About Future Housing: No Difficulty Paying Gas/Electric Bills: No Difficulty Paying for Meds: No Currently Unemployed: No Education: Bachelor's Degree Difficulty w/ Childcare or Family Care: No Additional living arrangements comments: . Has 2 children. Resident of [facility] since 09/01/23. 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: No Meds Home Medications and Allergies Home Medications ?Medication ?Instructions ?Recorded ?Confirmed ?Type buspirone 5 mg tablet 10 mg PO BID anxiety 01/24/23 10/13/24 History labetalol 200 mg tablet 300 mg PO Q12H 08/27/23 10/13/24 History memantine 5 mg tablet 5 mg PO Q12H 08/27/23 10/13/24 History amlodipine 10 mg tablet 10 mg PO HS 12/14/23 10/13/24 History losartan 50 mg tablet 50 mg PO DAILY 12/14/23 10/13/24 History cefdinir 300 mg capsule 300 mg PO DAILY #4 caps 12/16/23 10/13/24 Rx acetaminophen 325 mg tablet 650 mg PO Q4H minor pain, fever 07/22/24 10/13/24 History greater than 100.4 lanolin alcohols-mineral 1 applic topical PRN PRN dryness 07/22/24 10/13/24 History oil-w.petrolatum-ceresin topical cream (Eucerin topical cream) loperamide 2 mg capsule 2 mg PO PRN 07/22/24 10/13/24 History enoxaparin 30 mg/0.3 mL 30 mg (0.3 mL) subcut DAILY 30 09/02/24 10/13/24 Rx subcutaneous syringe days #9 mL ferrous sulfate 325 mg (65 mg 325 mg PO BID #60 tabs 09/02/24 10/13/24 Rx iron) tablet,delayed release oxycodone 5 mg capsule 2.5 mg (1/2 x 5 mg) PO Q6H PRN 09/02/24 10/13/24 Rx pain #7 caps Allergies Allergy/AdvReac Type Severity Reaction Status Date / Time No Known Allergies Allergy Verified 10/12/24 17:28 Vital Signs Vital Signs - 24 hr 10/12/24 14:26 10/12/24 14:36 10/12/24 14:56 Temperature 98.1 F Pulse Rate 86 87 Respiratory Rate 22 H 20 Blood Pressure 156/69 H Pulse Oximetry 98 98 Oxygen Delivery Nasal Cannula Nasal Cannula Oxygen Flow Rate 4 4 Fraction of Inspired Oxygen 10/12/24 14:57 10/12/24 15:02 10/12/24 15:06 Temperature Pulse Rate 89 92 Respiratory Rate 20 26 H Blood Pressure 162/72 H Pulse Oximetry 100 98 Oxygen Delivery Nasal Cannula Oxygen Flow Rate 4 Fraction of Inspired Oxygen 10/12/24 15:24 10/12/24 15:33 10/12/24 16:26 Temperature Pulse Rate 93 100 125 H Respiratory Rate 20 23 H 32 H Blood Pressure 175/93 H 201/78 H 209/84 H Pulse Oximetry 99 100 97 Oxygen Delivery Oxygen Flow Rate Fraction of Inspired Oxygen 10/12/24 17:21 10/12/24 17:21 10/12/24 17:42 Temperature 98.0 F Pulse Rate 142 H 143 H Respiratory Rate 20 Blood Pressure Pulse Oximetry 98 Oxygen Delivery Oxygen Flow Rate Fraction of Inspired Oxygen 10/12/24 17:47 10/12/24 18:06 10/12/24 18:10 Temperature Pulse Rate 111 H Respiratory Rate 30 H Blood Pressure 127/71 Pulse Oximetry 89 L 99 99 Oxygen Delivery Nasal Cannula BiPAP Oxygen Flow Rate 6 Fraction of Inspired Oxygen 10/12/24 18:14 10/12/24 18:14 10/12/24 18:35 Temperature Pulse Rate 115 H 115 H 113 H Respiratory Rate 33 H 33 H 30 H Blood Pressure 125/58 L Pulse Oximetry 95 95 100 Oxygen Delivery BiPAP BiPAP Oxygen Flow Rate Fraction of Inspired Oxygen 60 10/12/24 19:00 10/12/24 19:20 10/12/24 19:45 Temperature Pulse Rate 117 H 121 H 124 H Respiratory Rate 31 H 30 H 35 H Blood Pressure 129/62 146/70 H 150/73 H Pulse Oximetry 100 100 99 Oxygen Delivery Oxygen Flow Rate Fraction of Inspired Oxygen 10/12/24 20:05 10/12/24 20:16 10/12/24 21:50 Temperature Pulse Rate 122 H 121 H 119 H Respiratory Rate 32 H 34 H 32 H Blood Pressure 147/66 H Pulse Oximetry 100 99 97 Oxygen Delivery BiPAP Oxygen Flow Rate Fraction of Inspired Oxygen 10/12/24 22:02 10/12/24 22:15 10/12/24 22:30 Temperature 101.9 F H Pulse Rate 115 H 118 H 118 H Respiratory Rate 26 H 23 H 25 H Blood Pressure 163/89 H 167/90 H 138/79 Pulse Oximetry 95 96 98 Oxygen Delivery Oxygen Flow Rate Fraction of Inspired Oxygen 10/12/24 22:45 10/12/24 23:00 10/12/24 23:00 Temperature Pulse Rate 117 H 114 H Respiratory Rate 32 H 25 H Blood Pressure 160/78 H 154/76 H Pulse Oximetry 99 98 Oxygen Delivery BiPAP Oxygen Flow Rate Fraction of Inspired Oxygen 60 10/12/24 23:15 10/12/24 23:30 10/12/24 23:45 Temperature Pulse Rate 113 H 116 H 116 H Respiratory Rate 26 H 27 H 27 H Blood Pressure 157/78 H 161/80 H 158/83 H Pulse Oximetry 100 98 99 Oxygen Delivery Oxygen Flow Rate Fraction of Inspired Oxygen 10/13/24 00:00 10/13/24 00:00 10/13/24 00:00 Temperature Pulse Rate 114 H 115 H Respiratory Rate 26 H Blood Pressure 150/77 H Pulse Oximetry 99 Oxygen Delivery BiPAP Oxygen Flow Rate Fraction of Inspired Oxygen 60 10/13/24 00:30 10/13/24 01:57 10/13/24 02:00 Temperature 101.4 F H Pulse Rate 113 H 116 H Respiratory Rate 23 H 24 H Blood Pressure 148/71 H Pulse Oximetry 94 100 Oxygen Delivery BiPAP Oxygen Flow Rate Fraction of Inspired Oxygen 10/13/24 02:00 10/13/24 02:57 10/13/24 03:49 Temperature 100.0 F H 100.1 F H Pulse Rate 116 H Respiratory Rate Blood Pressure Pulse Oximetry Oxygen Delivery Oxygen Flow Rate Fraction of Inspired Oxygen 10/13/24 03:50 10/13/24 04:00 10/13/24 06:00 Temperature 98.9 F Pulse Rate 102 H 107 H Respiratory Rate 24 H Blood Pressure Pulse Oximetry 91 Oxygen Delivery BiPAP Oxygen Flow Rate Fraction of Inspired Oxygen 60 10/13/24 06:00 10/13/24 06:50 10/13/24 07:27 Temperature Pulse Rate 107 H Respiratory Rate Blood Pressure 132/50 L Pulse Oximetry 97 Oxygen Delivery Nasal Cannula Oxygen Flow Rate 4 Fraction of Inspired Oxygen 10/13/24 08:45 Temperature Pulse Rate 112 H Respiratory Rate 23 H Blood Pressure 143/62 H Pulse Oximetry 97 Oxygen Delivery Oxygen Flow Rate Fraction of Inspired Oxygen Exam 2 Narrative: General: Elderly female, pleasantly confused, in no acute distress HEENT:? Pupils equal and reactive, sclerae is clear Neck:? Sub Respiratory:? Coarse breath sounds bilaterally, decreased air entry at bases no wheezing Cardiac:? Sinus tachycardia Abdomen:? Cough, nontender, nondistended, hypoactive bowel sounds Extremities:? Albumin pedal pulses, no edema Neuro:? Patient is awake, answers to questions, follows simple commands, pleasantly confused Skin:? No skin lesions noted Psych:? [place] mentation but pleasantly confused Results Labs 10/13/24 03:53 10/13/24 03:53 Labs: Short CBC 10/12/24 10/13/24 Range/Units 15:05 03:53 WBC 4.8 15.8 H (4.5-10.0) K/mm3 Hgb 10.1 L 9.6 L (12.0-15.0) g/dL Hct 32.4 L 31.6 L (37.0-47.0) % Plt Count 186 161 (150-375) k/mm3 [facility] 10/12/24 10/13/24 15:05 03:53 Sodium 136 L 134 L Potassium 4.0 4.5 Chloride 95 L 98 Carbon Dioxide 35 H 31 H BUN 25 H D 35 H D Creatinine 3.30 H 4.10 H Glucose 118 H 101 Calcium 9.4 9.4 Cardiac Enzymes 10/12/24 Range/Units 15:05 Troponin I < 0.012 (0.000-0.034) ng/mL Liver Function 10/12/24 10/13/24 Range/Units 15:05 03:53 Total Bilirubin 0.6 0.6 (0.2-1.3) mg/dL AST 22 22 (14-36) U/L ALT 11 14 (6-35) U/L Alkaline Phosphatase 137 H 95 (38-126) U/L Albumin 3.9 3.3 L (3.5-5.1) g/dL Urine 10/13/24 Range/Units 01:31 Urine Color TNP Urine Appearance TNP Urine pH TNP Ur Specific [place] TNP Urine Protein TNP Urine Glucose (UA) TNP Quality VTE Prophylaxis VTE prophylaxis: pharmacologic ordered Hospitalist MIPS Advance Care Plan I have confirmed that the patient's Advanced Care Plan is present, code status is documented, or surrogate decision maker is listed in patient medical record.: Yes Medication Reconciliation I have utilized all available resources to obtain, update and review the patients current medications (includes all prescriptions, OTC, herbals, cannabis, and nutritional supplements).: Yes
--- NOTE | 2024-10-13 10:25 | P.CONNP_ITS ---
Assessment and Plan Assessment and plan (1) End stage renal disease: Code(s): N18.6 - End stage renal disease Status: Chronic Assessment and Plan: * HD today (since only received partial yesterday) * resume Tuesday/Tuesday/Tuesday outpatient dialysis schedule next week while hospitalized * follow electrolytes, volume status, and clearance (2) Acute hypoxemic respiratory failure: Code(s): J96.01 - Acute respiratory failure with hypoxia Status: Acute Assessment and Plan: * noted on admission * CXR with infiltrates * CTA of chest with but PE but pneumonia in right middle lobe and right lower lobe noted * interestingly, no significant evidence of pulmonary edema * viral testing for influenza/RSV/COVID negative * intermittent BIPAP support and supplemental oxygen as tolerated * difficult to maintain BiPAP as she keeps removing the mask * continue supportive therapy (3) Pneumonia: Code(s): J18.9 - Pneumonia, unspecified organism Status: Acute Assessment and Plan: * presumed etiology of #2 * as noted by CT of chest on admission * presumed community acquired * however, possible aspiration (?) -- pneumonia localized to right middle and lower lobe * follow culture data * on antibiotics (4) Urinary tract infection: Qualifiers: Urinary tract infection type: site unspecified Hematuria presence: w ithout hematuria Qualified Code(s): N39.0 - Urinary tract infection, site not specified Code(s): N39.0 - Urinary tract infection, site not specified Status: Acute Assessment and Plan: * esquivel catheter placed with purulent drainage * UA highly suggestive * follow culture data * on antibiotics (5) Anemia: Code(s): D64.9 - Anemia, unspecified Status: Chronic Assessment and Plan: * related to ESRD and acute illness * Retacrit with HD * follow trend of H/H (6) Hypertension: Code(s): I10 - Essential (primary) hypertension Status: Chronic Assessment and Plan: * can fluctuate to extremes * quite elevated in ER/admission * resumed on home medications * follow trend of hemodynamics (7) Dementia: Code(s): F03.90 - Unspecified dementia, unspecified severity, without behavioral disturbance, psychotic disturbance, mood disturbance, and anxiety Status: Chronic Assessment and Plan: * appears at baseline mentation * resumed on home medications * continue supportive therapy I will continue to follow the patient with you while he remains hospitalized and make further recommendations as deemed necessary. Thank you for allowing me to participate in the care of this patient. History of Present Illness Reason for Consult Consult date: 10/13/24 Reason for consult: end stage renal disease Chief Complaint Chief complaint: Pneumonia History of Present Illness Narrative: The patient is an 83-year-old female with an extensive past medical history as outlined below who presented to [facility] Emergency Room yesterday afternoon from her dialysis center for complaints of acute shortness of breath. Apparently, the patient has had increased cough in association with shortness of breath for last 1-2 days. she presented to her outpatient dialysis clinic yesterday for her scheduled dialysis treatment but did not make any mention of her acute complaints. However, about an hour into her dialysis treatment she started complaining of for shortness of breath and it was noted that she was quite hypoxic as well. She requested to end her dialysis treatment due to her shortness of breath and subsequently EMS was called. Supplemental oxygen was applied due to her shortness of breath and confirmed hypoxia and she was subsequently transferred to the emergency room for further assessment. Workup and evaluation emergency room demonstrated the patient be quite hypertensive in association with her shortness of breath and hypoxia. Furthermore, it seemed that she had increased work of breathing as well despite supportive therapy. Subsequent workup and evaluation demonstrated normal white blood cell count, hemoglobin, and platelets and her chemistry was consistent with labs in conjunction with her known history of end-stage renal disease. A Esquivel catheter was placed to get a urine sample which demonstrated purulence drainage and a UA consistent with a urinary tract infection. Viral testing for influenza, RSV, and COVID were negative. As she had a recent hip fracture, a D-dimer was done which was quite elevated And a subsequent CTA of the chest demonstrated no pulmonary embolism but findings of a right middle lobe and right lower lobe pneumonia. She was given IV labetalol for her hypertension as well as nitropaste and after appropriate cultures were obtained, started on IV antibiotics. As she continued to have issues with her respiratory status BiPAP was applied which did seem to help to some degree with her respiratory status. Given her continued hypoxia and fluctuating respiratory status, she was admitted to the ICU for further evaluation and therapy. Since her admission to the ICU, she has been slightly agitated due to discomfort of having a Esquivel catheter in place. She is pleasantly confused but this is her baseline and she denies any other acute complaints. She was febrile overnight with a T-max of 101.9? but otherwise was hemodynamically stable. Renal consultation was requested due to her end-stage renal disease. The patient is quite familiar to me as I take care of her outpatient dialysis needs. She normally dialyzes on a Tuesday, Tuesday and Tuesday dialysis schedule under my care at [facility]. She is usually compliant with her dialysis treatments and her monthly labs show relative stability in her CKD parameters although she does have some significant shifts in her fluid status in association with variable blood pressure control along with difficulty controlling her phosphorus levels. Her last dialysis treatment was on yesterday (10/12/24) but as mentioned above, she only received a partial treatment (about 82 minutes) as it was aborted/terminated given her acute complaints leading to her transfer to the ER. Currently, at the time my evaluation, she is tolerating dialysis at the time of my visit (seen on HD at 10:15AM) to make-up for her only partial treatment yesterday. Review of Systems 2 Review of Systems: As per HPI. [facility] Past Medical History Medical History (Updated 10/12/24 @ 19:13 by Karen Hernandez MD) Anemia of chronic disease Memory loss Cerebrovascular accident End-stage renal disease on hemodialysis Gout Hypertension Surgical History Surgical History (Updated 10/10/24 @ 04:30 by Nita Veliz MD) History of orthopedic surgery ORIF 08/30/24 History of partial replacement of left hip joint using bipolar prosthesis History of parathyroidectomy History of appendectomy History of cholecystectomy History of oophorectomy History of cataract extraction History of colonoscopy Family History Family History Father Family history of elevated blood lipids Hypertension Sibling Family history of elevated blood lipids Hypertension Cancer of jaw Mother Myocardial infarction Social History Social History (Updated 10/10/24 @ 04:28 by Nita Veliz MD) Social History: Surrogate medical decision maker: Agnes Monroy and Stacy Sheppard, daughters. Code status: Do not resuscitate. Smoking status: Never smoker Second hand tobacco smoke exposure: No Alcohol intake: never Substance use: never Substance use type: does not use Do You Feel Safe in your Home?: Yes Lack of Transportation: No Lack of Food: Never True Current Housing: I Have Housing Concerned About Future Housing: No Difficulty Paying Gas/Electric Bills: No Difficulty Paying for Meds: No Currently Unemployed: No Education: Bachelor's Degree Difficulty w/ Childcare or Family Care: No Additional living arrangements comments: . Has 2 children. Resident of [facility] since 09/01/23. 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: No Meds Home Medications and Allergies Home Medications ?Medication ?Instructions ?Recorded ?Confirmed ?Type buspirone 5 mg tablet 10 mg PO BID anxiety 01/24/23 10/13/24 History labetalol 200 mg tablet 300 mg PO Q12H 08/27/23 10/13/24 History memantine 5 mg tablet 5 mg PO Q12H 08/27/23 10/13/24 History amlodipine 10 mg tablet 10 mg PO HS 12/14/23 10/13/24 History losartan 50 mg tablet 50 mg PO DAILY 12/14/23 10/13/24 History cefdinir 300 mg capsule 300 mg PO DAILY #4 caps 12/16/23 10/13/24 Rx acetaminophen 325 mg tablet 650 mg PO Q4H minor pain, fever 07/22/24 10/13/24 History greater than 100.4 lanolin alcohols-mineral 1 applic topical PRN PRN dryness 07/22/24 10/13/24 History oil-w.petrolatum-ceresin topical cream (Eucerin topical cream) loperamide 2 mg capsule 2 mg PO PRN 07/22/24 10/13/24 History enoxaparin 30 mg/0.3 mL 30 mg (0.3 mL) subcut DAILY 30 09/02/24 10/13/24 Rx subcutaneous syringe days #9 mL ferrous sulfate 325 mg (65 mg 325 mg PO BID #60 tabs 09/02/24 10/13/24 Rx iron) tablet,delayed release oxycodone 5 mg capsule 2.5 mg (1/2 x 5 mg) PO Q6H PRN 09/02/24 10/13/24 Rx pain #7 caps Allergies Allergy/AdvReac Type Severity Reaction Status Date / Time No Known Allergies Allergy Verified 10/12/24 17:28 Vital Signs Vital Signs Temp Pulse Resp BP Pulse Ox O2 Del Method O2 Flow Rate 10/13/24 10:15 113 H 152/69 H 10/13/24 10:00 112 H 146/64 H 10/13/24 09:45 111 H 145/65 H 10/13/24 09:30 113 H 145/71 H 10/13/24 09:20 110 H 147/67 H 10/13/24 08:45 98.9 F 112 H 23 H 143/62 H 97 10/13/24 08:45 3 10/13/24 08:00 115 H 10/13/24 08:00 98 Nasal Cannula 3 10/13/24 07:27 97 Nasal Cannula 4 10/13/24 06:50 132/50 L 10/13/24 06:00 107 H 10/13/24 06:00 98.9 F 107 H 24 H 91 10/13/24 04:00 102 H 10/13/24 03:50 BiPAP 10/13/24 03:49 100.1 F H 10/13/24 02:57 100.0 F H 10/13/24 02:00 116 H 10/13/24 02:00 116 H 24 H 148/71 H 100 10/13/24 01:57 101.4 F H 10/13/24 00:30 113 H 23 H 94 BiPAP 10/13/24 00:00 115 H 10/13/24 00:00 BiPAP 10/13/24 00:00 114 H 26 H 150/77 H 99 10/12/24 23:45 116 H 27 H 158/83 H 99 10/12/24 23:30 116 H 27 H 161/80 H 98 10/12/24 23:15 113 H 26 H 157/78 H 100 10/12/24 23:00 114 H 25 H 154/76 H 98 10/12/24 23:00 BiPAP 10/12/24 22:45 117 H 32 H 160/78 H 99 10/12/24 22:30 118 H 25 H 138/79 98 10/12/24 22:15 118 H 23 H 167/90 H 96 10/12/24 22:02 101.9 F H 115 H 26 H 163/89 H 95 10/12/24 21:50 119 H 32 H 97 BiPAP 10/12/24 20:16 121 H 34 H 147/66 H 99 10/12/24 20:05 122 H 32 H 100 10/12/24 19:45 124 H 35 H 150/73 H 99 10/12/24 19:20 121 H 30 H 146/70 H 100 10/12/24 19:00 117 H 31 H 129/62 100 10/12/24 18:35 113 H 30 H 125/58 L 100 10/12/24 18:14 115 H 33 H 95 BiPAP 10/12/24 18:14 115 H 33 H 95 BiPAP 10/12/24 18:10 111 H 30 H 127/71 99 10/12/24 18:06 99 BiPAP 10/12/24 17:47 89 L Nasal Cannula 6 10/12/24 17:42 143 H 20 98 10/12/24 17:21 142 H 10/12/24 17:21 98.0 F 10/12/24 16:26 125 H 32 H 209/84 H 97 10/12/24 15:33 100 23 H 201/78 H 100 10/12/24 15:24 93 20 175/93 H 99 10/12/24 15:06 92 26 H 162/72 H 98 10/12/24 15:02 89 20 10/12/24 14:57 100 Nasal Cannula 4 10/12/24 14:56 87 20 10/12/24 14:36 98 Nasal Cannula 4 10/12/24 14:26 98.1 F 86 22 H 156/69 H 98 Nasal Cannula 4 Results Lab Results 10/14/24 04:55 10/14/24 04:55 Lab results: Most recent lab results ABG pH 7.541 (7.350-7.450) H* 10/12/24 18:31 ABG pCO2 30.9 mmHg (35.0-45.0) L 10/12/24 18:31 ABG pO2 105.8 mmHg (80.0-100.0) H 10/12/24 18:31 ABG HCO3 25.9 mEq/l (22.0-26.0) 10/12/24 18:31 ABG O2 Saturation 98.4 % (95.0-100.0) 10/12/24 18:31 Calcium 9.4 mg/dL (8.4-10.2) 10/13/24 03:53 Phosphorus 4.8 mg/dL (2.5-4.5) H 10/13/24 03:53 Magnesium 1.7 mg/dL (1.6-2.3) 10/13/24 03:53
[2024-10-13] MEDS: EPOETIN ALFA-EPBX 10,000 UNITS/ML VIAL 10000 UNITS IV PUSH (11:46)
[2024-10-13 13:39] LABS: MRSA (PCR) NOT DETECTED (NOT DETECTE)
--- NOTE | 2024-10-13 13:45 | PM.IMPN ---
Progress Note: A&P Assessment and Plan (1) Acute hypoxemic respiratory failure: Code(s): J96.01 - Acute respiratory failure with hypoxia Status: Acute (2) Pneumonia: Code(s): J18.9 - Pneumonia, unspecified organism Status: Acute (3) ESRD on hemodialysis: Code(s): N18.6 - End stage renal disease; Z99.2 - Dependence on renal dialysis Status: Acute (4) Urinary tract infection: Qualifiers: Urinary tract infection type: site unspecified Hematuria presence: without hematuria Qualified Code(s): N39.0 - Urinary tract infection, site not specified Code(s): N39.0 - Urinary tract infection, site not specified Status: Acute (5) Hypertension: Code(s): I10 - Essential (primary) hypertension Status: Chronic Plan This is a 83-year-old female presented from dialysis with shortness of breath. She reported having increased cough over the past day or so. No chest pain reported. Recent hip fracture. Has underlying history of end-stage renal disease on hemodialysis. Laboratory workup revealed normal WBC of 4.8 mild anemia at 10.1 creatinine of 3.3 electrolytes were unremarkable. Troponin was negative. LFT was normal. Influenza RSV COVID swab was negative. ABG showed 7.54/30/105/26. Chest x-ray with infiltrates. Urinalysis suggestive of UTI. CTA chest showed no PE. showed Pneumonia and right middle lobe and right lower lobe noted. On ED evaluation she was hypertensive and mildly tachycardic patient was placed on a BiPAP due to respiratory distress overnight. tapered to oxygen via NC. ESRD on HD nephrology consulted. UTI: esquivel catheter inserted and drained purulent drainage. follow urine culture HTN: home meds dvt proph: heparin sq code status: full code Anemia of chronic disease Memory loss Cerebrovascular accident Gout Subjective Date/time seen: 10/13/24 13:45 Interval history: Reports shortness of breath. Currently getting dialysis. Denies any chest pain. Reports cough Review of Systems Review of Systems: All systems reviewed & are unremarkable except as noted in HPI and below Exam Narrative: General: Elderly female, pleasantly confused, in no acute distress HEENT:? Pupils equal and reactive, sclerae is clear Neck:? Sub Respiratory:? Coarse breath sounds bilaterally, decreased air entry at bases no wheezing Cardiac:? Sinus tachycardia Abdomen:? Cough, nontender, nondistended, hypoactive bowel sounds Extremities:? Albumin pedal pulses, no edema Neuro:? Patient is awake, answers to questions, follows simple commands, pleasantly confused Skin:? No skin lesions noted Psych:? Sheba mentation but pleasantly confused Objective Data Vital Signs Vital Signs: Vital Signs - 24 hr 10/12/24 14:26 10/12/24 14:36 10/12/24 14:56 Temperature 98.1 F Pulse Rate 86 87 Respiratory Rate 22 H 20 Blood Pressure 156/69 H Pulse Oximetry 98 98 Oxygen Delivery Nasal Cannula Nasal Cannula Oxygen Flow Rate 4 4 Fraction of Inspired Oxygen 10/12/24 14:57 10/12/24 15:02 10/12/24 15:06 Temperature Pulse Rate 89 92 Respiratory Rate 20 26 H Blood Pressure 162/72 H Pulse Oximetry 100 98 Oxygen Delivery Nasal Cannula Oxygen Flow Rate 4 Fraction of Inspired Oxygen 10/12/24 15:24 10/12/24 15:33 10/12/24 16:26 Temperature Pulse Rate 93 100 125 H Respiratory Rate 20 23 H 32 H Blood Pressure 175/93 H 201/78 H 209/84 H Pulse Oximetry 99 100 97 Oxygen Delivery Oxygen Flow Rate Fraction of Inspired Oxygen 10/12/24 17:21 10/12/24 17:21 10/12/24 17:42 Temperature 98.0 F Pulse Rate 142 H 143 H Respiratory Rate 20 Blood Pressure Pulse Oximetry 98 Oxygen Delivery Oxygen Flow Rate Fraction of Inspired Oxygen 10/12/24 17:47 10/12/24 18:06 10/12/24 18:10 Temperature Pulse Rate 111 H Respiratory Rate 30 H Blood Pressure 127/71 Pulse Oximetry 89 L 99 99 Oxygen Delivery Nasal Cannula BiPAP Oxygen Flow Rate 6 Fraction of Inspired Oxygen 10/12/24 18:14 10/12/24 18:14 10/12/24 18:35 Temperature Pulse Rate 115 H 115 H 113 H Respiratory Rate 33 H 33 H 30 H Blood Pressure 125/58 L Pulse Oximetry 95 95 100 Oxygen Delivery BiPAP BiPAP Oxygen Flow Rate Fraction of Inspired Oxygen 60 10/12/24 19:00 10/12/24 19:20 10/12/24 19:45 Temperature Pulse Rate 117 H 121 H 124 H Respiratory Rate 31 H 30 H 35 H Blood Pressure 129/62 146/70 H 150/73 H Pulse Oximetry 100 100 99 Oxygen Delivery Oxygen Flow Rate Fraction of Inspired Oxygen 12/13/24 20:05 10/12/24 20:16 10/12/24 21:50 Temperature Pulse Rate 122 H 121 H 119 H Respiratory Rate 32 H 34 H 32 H Blood Pressure 147/66 H Pulse Oximetry 100 99 97 Oxygen Delivery BiPAP Oxygen Flow Rate Fraction of Inspired Oxygen 10/12/24 22:02 10/12/24 22:15 10/12/24 22:30 Temperature 101.9 F H Pulse Rate 115 H 118 H 118 H Respiratory Rate 26 H 23 H 25 H Blood Pressure 163/89 H 167/90 H 138/79 Pulse Oximetry 95 96 98 Oxygen Delivery Oxygen Flow Rate Fraction of Inspired Oxygen 10/12/24 22:45 10/12/24 23:00 10/12/24 23:00 Temperature Pulse Rate 117 H 114 H Respiratory Rate 32 H 25 H Blood Pressure 160/78 H 154/76 H Pulse Oximetry 99 98 Oxygen Delivery BiPAP Oxygen Flow Rate Fraction of Inspired Oxygen 60 10/12/24 23:15 10/12/24 23:30 10/12/24 23:45 Temperature Pulse Rate 113 H 116 H 116 H Respiratory Rate 26 H 27 H 27 H Blood Pressure 157/78 H 161/80 H 158/83 H Pulse Oximetry 100 98 99 Oxygen Delivery Oxygen Flow Rate Fraction of Inspired Oxygen 10/13/24 00:00 10/13/24 00:00 10/13/24 00:00 Temperature Pulse Rate 114 H 115 H Respiratory Rate 26 H Blood Pressure 150/77 H Pulse Oximetry 99 Oxygen Delivery BiPAP Oxygen Flow Rate Fraction of Inspired Oxygen 60 10/13/24 00:30 10/13/24 01:57 10/13/24 02:00 Temperature 101.4 F H Pulse Rate 113 H 116 H Respiratory Rate 23 H 24 H Blood Pressure 148/71 H Pulse Oximetry 94 100 Oxygen Delivery BiPAP Oxygen Flow Rate Fraction of Inspired Oxygen 10/13/24 02:00 10/13/24 02:57 10/13/24 03:49 Temperature 100.0 F H 100.1 F H Pulse Rate 116 H Respiratory Rate Blood Pressure Pulse Oximetry Oxygen Delivery Oxygen Flow Rate Fraction of Inspired Oxygen 10/13/24 03:50 10/13/24 04:00 10/13/24 06:00 Temperature 98.9 F Pulse Rate 102 H 107 H Respiratory Rate 24 H Blood Pressure Pulse Oximetry 91 Oxygen Delivery BiPAP Oxygen Flow Rate Fraction of Inspired Oxygen 60 10/13/24 06:00 10/13/24 06:50 10/13/24 07:27 Temperature Pulse Rate 107 H Respiratory Rate Blood Pressure 132/50 L Pulse Oximetry 97 Oxygen Delivery Nasal Cannula Oxygen Flow Rate 4 Fraction of Inspired Oxygen 10/13/24 08:00 10/13/24 08:00 10/13/24 08:45 Temperature Pulse Rate 115 H Respiratory Rate Blood Pressure Pulse Oximetry 98 Oxygen Delivery Nasal Cannula Oxygen Flow Rate 3 3 Fraction of Inspired Oxygen 10/13/24 08:45 10/13/24 09:20 10/13/24 09:30 Temperature 98.9 F Pulse Rate 112 H 110 H 113 H Respiratory Rate 23 H Blood Pressure 143/62 H 147/67 H 145/71 H Pulse Oximetry 97 Oxygen Delivery Oxygen Flow Rate Fraction of Inspired Oxygen 10/13/24 09:45 10/13/24 10:00 10/13/24 10:00 Temperature Pulse Rate 111 H 112 H 115 H Respiratory Rate Blood Pressure 145/65 H 146/64 H Pulse Oximetry Oxygen Delivery Oxygen Flow Rate Fraction of Inspired Oxygen 10/13/24 10:15 10/13/24 10:30 10/13/24 10:45 Temperature Pulse Rate 113 H 118 H 113 H Respiratory Rate Blood Pressure 152/69 H 140/62 133/63 Pulse Oximetry Oxygen Delivery Oxygen Flow Rate Fraction of Inspired Oxygen 10/13/24 11:00 10/13/24 11:15 10/13/24 11:30 Temperature Pulse Rate 114 H 117 H 116 H Respiratory Rate Blood Pressure 134/64 148/63 H 142/65 H Pulse Oximetry Oxygen Delivery Oxygen Flow Rate Fraction of Inspired Oxygen 10/13/24 11:45 10/13/24 12:00 10/13/24 12:15 Temperature Pulse Rate 117 H 116 H 121 H Respiratory Rate Blood Pressure 129/55 L 138/64 123/64 Pulse Oximetry Oxygen Delivery Oxygen Flow Rate Fraction of Inspired Oxygen 10/13/24 12:30 10/13/24 12:40 10/13/24 12:55 Temperature 98.3 F Pulse Rate 121 H 113 H 112 H Respiratory Rate 24 H Blood Pressure 118/61 133/72 130/74 Pulse Oximetry 97 Oxygen Delivery Oxygen Flow Rate Fraction of Inspired Oxygen Intake/Output Intake/Output: Intake & Output 12/11/24 10/11/24 10/12/24 10/13/24 23:59 23:59 23:59 23:59 Intake Total 300 250 Output Total 3041 Balance 300 -2791 Meds/Results Medications: Active Medications Generic Name Dose Route Start Last Admin Trade Name Freq PRN Reason Stop Dose Admin Acetaminophen 650 mg 10/13/24 00:27 10/13/24 01:57 Acetaminophen 650 Mg Suppository RECTAL 650 mg Q6H PRN Administration Mild Pain (1-3) or Fever Epoetin Ricardo-epbx 10,000 units 10/13/24 19:40 10/13/24 11:46 Epoetin Ricardo-Epbx 10,000 Units/Ml Vial IV PUSH 10/13/24 19:41 10,000 units ONCE ONE Administration Heparin Sodium (Porcine) 5,000 units 10/13/24 14:00 Heparin Sodium 5,000 Units/Ml Vial SUB-Q Q8HR RENAE Azithromycin 500 mg in 250 mls @ 250 mls/hr 10/13/24 18:00 Zithromax IVPB Q24H RENAE Ceftriaxone Sodium 2 gm in 100 mls @ 200 mls/hr 10/13/24 17:00 Rocephin 2 Gm/Ns 100 Ml IVPB Q24H RENAE Albumin Human 100 mls @ 60 mls/hr 10/13/24 07:40 10/13/24 09:14 Albutein IVPB 10/14/24 01:39 60 mls/hr Q6HR RENAE Administration Albumin Human 50 mls @ 999 mls/hr 10/13/24 07:40 Albutein IVPB 11/12/24 07:39 Q10M PRN HYPOTENSION Vancomycin HCl 1,000 mg in 250 mls @ 250 mls/hr 10/13/24 15:00 Vancomycin 1,000 Mg/Ns 250 Ml IVPB 10/13/24 15:59 ONCE ONE Vancomycin HCl 1 each 10/13/24 09:04 Vancomycin For Hemodialysis IVPB PRN PRN Vancomycin Protocol Radiology Results: ITS Impressions Chest CTA 10/12/24 16:52 IMPRESSION: 1. No pulmonary embolus. Sensitivity is moderately decreased by motion artifact. 2. Pneumonia in right middle lobe and right lower lobe. Chest X-Ray 10/13/24 08:53 IMPRESSION: 1. Consolidation right lower lung zone consistent with pneumonia. 2. More subtle opacities in the right upper and left lower lung zones which could represent atelectasis or additional pneumonia. Labs Labs: Laboratory Results - last 24 hr 10/12/24 10/12/24 10/12/24 15:05 15:23 18:31 WBC 4.8 RBC 3.40 L Hgb 10.1 L Hct 32.4 L MCV 95.3 MCH 29.7 MCHC 31.2 L RDW 15.6 H Plt Count 186 MPV 8.4 Immature Gran % (Auto) 0.4 Neut % (Auto) 59.0 Lymph % (Auto) 19.7 [place] % (Auto) 13.9 H Eos % (Auto) 5.7 H Baso % (Auto) 1.3 H Lymph # (Auto) 0.94 [place] # (Auto) 0.7 H Eos # (Auto) 0.3 Baso # (Auto) 0.1 Abs Immat Gran (auto) 0.02 Absolute Neuts (auto) 2.8 Absolute Nucleated RBC 0.000 Nucleated RBC % 0.0 Platelet Estimate Hypochromasia Anisocytosis Schistocytes D-Dimer 3.89 H Puncture Site Right radial ABG pH 7.541 H* ABG pCO2 30.9 L ABG pO2 105.8 H ABG PO2/FiO2 Ratio 1.76 ABG HCO3 25.9 ABG O2 Saturation 98.4 ABG O2 Content 15.1 L ABG Base Excess 3.7 A-a Gradient 288.0 Oxyhemoglobin 97.6 Total Hemoglobin 10.9 L O2 Delivery Device Bipap O2 Liters/Min Not Reportable FiO2 60 Expiratory Pressure 6 Inspiratory Pressure 12 Sodium 136 L Potassium 4.0 Chloride 95 L Carbon Dioxide 35 H Anion Gap 6 BUN 25 H D Creatinine 3.30 H Estim Creat Clear Calc 11 Estimated GFR 13 L Glucose 118 H Calcium 9.4 Phosphorus Magnesium 1.8 Total Bilirubin 0.6 AST 22 ALT 11 Alkaline Phosphatase 137 H Troponin I < 0.012 NT-Pro-B Natriuret Pep 9870 H Total Protein 7.0 Albumin 3.9 Urine Color Urine Appearance Urine pH Ur Specific [place] Urine Protein Urine Glucose (UA) Urine Ketones Ur Blood (Man) Urine Nitrate Urine Bilirubin Urine Urobilinogen Leukocyte Esterase Rfl Urine RBC Urine WBC Urine WBC Clumps Ur Squamous Epith Cells Urine Mucus Urine Yeast (Budding) Nasal MRSA (PCR) Hep Bs Antigen Hep Bs Antibody Influenza A (RT-PCR) Negative Influenza B (RT-PCR) Negative RSV (RT-PCR) Negative SARS-CoV-2 RNA (RT-PCR) Negative 10/12/24 10/13/24 10/13/24 22:37 01:31 03:53 WBC 15.8 H RBC 3.22 L Hgb 9.6 L Hct 31.6 L MCV 98.1 MCH 29.8 MCHC 30.4 L RDW 15.6 H Plt Count 161 MPV 8.8 Immature Gran % (Auto) 0.6 H Neut % (Auto) 80.8 H Lymph % (Auto) 4.9 L [place] % (Auto) 12.9 H Eos % (Auto) 0.5 Baso % (Auto) 0.3 Lymph # (Auto) 0.77 L [place] # (Auto) 2.0 H Eos # (Auto) 0.1 Baso # (Auto) 0.1 Abs Immat Gran (auto) 0.09 H Absolute Neuts (auto) 12.8 H Absolute Nucleated RBC 0.000 Nucleated RBC % 0.0 Platelet Estimate Decreased Hypochromasia 1+ Anisocytosis 1+ Schistocytes None seen D-Dimer Puncture Site ABG pH ABG pCO2 ABG pO2 ABG PO2/FiO2 Ratio ABG HCO3 ABG O2 Saturation ABG O2 Content ABG Base Excess A-a Gradient Oxyhemoglobin Total Hemoglobin O2 Delivery Device O2 Liters/Min FiO2 Expiratory Pressure Inspiratory Pressure Sodium 134 L Potassium 4.5 Chloride 98 Carbon Dioxide 31 H Anion Gap 5 BUN 35 H D Creatinine 4.10 H Estim Creat Clear Calc 8 Estimated GFR 10 L Glucose 101 Calcium 9.4 Phosphorus 4.8 H Magnesium 1.7 Total Bilirubin 0.6 AST 22 ALT 14 Alkaline Phosphatase 95 Troponin I NT-Pro-B Natriuret Pep Total Protein 6.0 L Albumin 3.3 L Urine Color TNP Urine Appearance TNP Urine pH TNP Ur Specific [place] TNP Urine Protein TNP Urine Glucose (UA) TNP Urine Ketones TNP Ur Blood (Man) TNP Urine Nitrate TNP Urine Bilirubin TNP Urine Urobilinogen TNP Leukocyte Esterase Rfl TNP Urine RBC 11-20 H Urine WBC >100 H Urine WBC Clumps Present H Ur Squamous Epith Cells Few Urine Mucus Present Urine Yeast (Budding) Present H Nasal MRSA (PCR) Not detected Hep Bs Antigen Negative Hep Bs Antibody Positive Influenza A (RT-PCR) Influenza B (RT-PCR) RSV (RT-PCR) SARS-CoV-2 RNA (RT-PCR) 10/13/24 12:22 WBC RBC Hgb Hct MCV MCH MCHC RDW Plt Count MPV Immature Gran % (Auto) Neut % (Auto) Lymph % (Auto) [place] % (Auto) Eos % (Auto) Baso % (Auto) Lymph # (Auto) [place] # (Auto) Eos # (Auto) Baso # (Auto) Abs Immat Gran (auto) Absolute Neuts (auto) Absolute Nucleated RBC Nucleated RBC % Platelet Estimate Hypochromasia Anisocytosis Schistocytes D-Dimer Puncture Site ABG pH ABG pCO2 ABG pO2 ABG PO2/FiO2 Ratio ABG HCO3 ABG O2 Saturation ABG O2 Content ABG Base Excess A-a Gradient Oxyhemoglobin Total Hemoglobin O2 Delivery Device O2 Liters/Min FiO2 Expiratory Pressure Inspiratory Pressure Sodium Potassium Chloride Carbon Dioxide Anion Gap BUN Creatinine Estim Creat Clear Calc Estimated GFR Glucose Calcium Phosphorus Magnesium Total Bilirubin AST ALT Alkaline Phosphatase Troponin I NT-Pro-B Natriuret Pep Total Protein Albumin Urine Color Urine Appearance Urine pH Ur Specific [place] Urine Protein Urine Glucose (UA) Urine Ketones Ur Blood (Man) Urine Nitrate Urine Bilirubin Urine Urobilinogen Leukocyte Esterase Rfl Urine RBC Urine WBC Urine WBC Clumps Ur Squamous Epith Cells Urine Mucus Urine Yeast (Budding) Nasal MRSA (PCR) Not detected Hep Bs Antigen Hep Bs Antibody Influenza A (RT-PCR) Influenza B (RT-PCR) RSV (RT-PCR) SARS-CoV-2 RNA (RT-PCR)
[2024-10-13] MEDS: HEPARIN SODIUM 5,000 UNITS/ML VIAL 5000 UNITS SUB-Q ×2 (14:01→21:21)
[2024-10-13] MEDS: VANCOMYCIN 1,000 MG/NS 250 ML 1,000 MG/250 ML BAG 250 MG IVPB (15:24)
[2024-10-13] MEDS: AZITHROMYCIN 500 MG/NS 250 ML 500 MG/250 ML BAG 250 MG IVPB (18:24)
[2024-10-13] MEDS: cefTRIAXone 2 GM/NS 100 ML 2 GM/100 ML BAG IVPB (18:24)
[2024-10-14] VITALS (30 sets, daily range): BP systolic 131–171; BP diastolic 66–103; PULSE 109–130; RESP 14–38; TEMP 36.4–37.8; O2SAT 85–100
[2024-10-14] MEDS: HEPARIN SODIUM 5,000 UNITS/ML VIAL 5000 UNITS SUB-Q ×3 (05:03→21:03)
[2024-10-14 05:06] LABS: Hematocrit 26.7 % (37.0-47.0); Hemoglobin 8.1 g/dL (12.0-15.0); Mean Corpuscular HGB Conc 30.3 g/dl (32-36); Mean Corpuscular Hemoglobin 29.5 pg (26-34); Mean Corpuscular Volume 97.1 fl (80-100); Platelet Count Result 129 k/mm3 (150-375); Red Blood Count 2.75 M/mm3 (4.2-5.4); White Blood Count 22.3 K/mm3 (4.5-10.0)
[2024-10-14 05:30] LABS: Band Neutrophils Percent 4 % (0-6); Lymphocytes Absolute Manual 2.67 K/mm3 (1.1-4.5); Monocytes Absolute Manual 1.56 K/mm3 (0.1-0.90); Monocytes Percent Manual 7 % (3-9); Neutrophils Absolute Manual 18.06 K/mm3 (1.7-7.2); Neutrophils Percent Manual 77 % (46-73); Total Cells Counted 100
[2024-10-14 05:31] LABS: Anisocytosis 1+; Hypochromasia 1+; Platelet Estimate Decreased (Adequate); Schistocytes None Seen
[2024-10-14 05:37] LABS: Vancomycin Random 13.8 ug/mL (10-20)
[2024-10-14 05:38] LABS: Alanine Aminotransferase 12 U/L (6-35); Albumin Level 4.5 g/dL (3.5-5.1); Alkaline Phosphatase 90 U/L (38-126); Anion Gap 11 mmol/L (4-12); Aspartate Amino Transferase 23 U/L (14-36); Bilirubin,Total 0.8 mg/dL (0.2-1.3); Blood Urea Nitrogen 24 mg/dL (7-17); Calcium 10.7 mg/dL (8.4-10.2); Carbon Dioxide 25 mmol/L (22-30); Chloride 104 mmol/L (98-107); Estimated CRCL calculation 11 ml/min; Estimated Glomerular Filt Rate 15; Glucose 79 mg/dL (65-110); Magnesium 2.1 mg/dL (1.6-2.3); Phosphorus 3.8 mg/dL (2.5-4.5); Potassium 4.7 mmol/L (3.4-5.0); Sodium 140 mmol/L (137-145)
[2024-10-14] MEDS: LEVALBUTEROL NEB 1.25 MG/3 ML (09:12)
[2024-10-14] MEDS: methylPREDNISolone SOD SUCC 125 MG VIAL (09:18)
[2024-10-14] MEDS: methylPREDNISolone SOD SUCC 125 MG VIAL IV PUSH (09:18)
[2024-10-14 09:22] LABS: Base Excess ABG -4.3 mEq/l (+/-2.0); Fractional Inspired Oxygen 100 %; Oxygen Content ABG 15.4 %vol (16.0-22.0); Oxygen Saturation ABG 99.5 % (95.0-100.0); Oxyhemoglobin 99.3 % THb (90.0-100.0); PCO2 ABG 45.7 mmHg (35.0-45.0); PO2 ABG 239.3 mmHg (80.0-100.0); PO2 FiO2 Ratio Arterial Blood 2.39 %; Total Hemoglobin 10.6 g/dL (12.0-18.0)
[2024-10-14 09:23] LABS: Device BIPAP; Expiratory Pressure 6 cmH2O; Inspiratory Pressure 12 cmH2O; Modified Allen's Test Pass; Site Drawn RIGHT RADIAL
--- NOTE | 2024-10-14 11:48 | P.PNNP_ITS ---
Progress Note: A&P Assessment and Plan (1) End stage renal disease: Code(s): N18.6 - End stage renal disease Status: Chronic Assessment and Plan: * HD tomorrow * continue Tuesday/Tuesday/Tuesday outpatient dialysis schedule while hospitalized * follow electrolytes, volume status, and clearance (2) Acute hypoxemic respiratory failure: Code(s): J96.01 - Acute respiratory failure with hypoxia Status: Acute Assessment and Plan: * noted on admission * CXR with infiltrates * CTA of chest with but PE but pneumonia in right middle lobe and right lower lobe noted * interestingly, no significant evidence of pulmonary edema * viral testing for influenza/RSV/COVID negative * intermittent BIPAP support and supplemental oxygen as tolerated * difficult to maintain BiPAP as she keeps removing the mask * continue supportive therapy (3) Pneumonia: Code(s): J18.9 - Pneumonia, unspecified organism Status: Acute Assessment and Plan: * presumed etiology of #2 * as noted by CT of chest on admission * presumably community acquired * however, possible aspiration (?) -- pneumonia localized to right middle and lower lobe * follow culture data * on antibiotics (4) Urinary tract infection: Qualifiers: Hematuria presence: without hematuria Urinary tract infection type: s ite unspecified Qualified Code(s): N39.0 - Urinary tract infection, site not specified Code(s): N39.0 - Urinary tract infection, site not specified Status: Acute Assessment and Plan: * esquievl catheter with purulent drainage * UA highly suggestive * follow culture data * on antibiotics (5) Anemia: Code(s): D64.9 - Anemia, unspecified Status: Chronic Assessment and Plan: * related to ESRD and acute illness * Retacrit with HD * follow trend of H/H (6) Hypertension: Code(s): I10 - Essential (primary) hypertension Status: Chronic Assessment and Plan: * can fluctuate to extremes * quite elevated in ER/admission * resumed on home medications * follow trend of hemodynamics (7) Dementia: Code(s): F03.90 - Unspecified dementia, unspecified severity, without behavioral disturbance, psychotic disturbance, mood disturbance, and anxiety Status: Chronic Assessment and Plan: * appears at baseline mentation * continue supportive therapy Will continue to follow. Subjective Date/time seen: 10/14/24 11:48 Interval history: Follow-up for end stage renal disease on hemodialysis. Tolerated dialysis treatment yesterday without any issues or problems; rapid response earlier this morning due to drop in oxygen saturations -- hypoxia resolved with use of BiPAP, empriric steroids, and increase in Fi02 with ABG And CXR results noted; change in code status noted; otherwise, remains pleasantly confused but in no acute distress. Exam 2 Narrative: General: elderly and frail female in NAD; pleasantly confused Heart: tachycardic, normal S1 and S2; no rub Lungs: coarse breath sounds with bibasilar rhonchi noted Abdomen: soft, nontender, nondistended, positive bowel sounds Extremities: no cyanosis or clubbing; no edema Skin: warm and dry Objective Data Vital Signs Vital Signs: Vital Signs Temp Pulse Resp BP Pulse Ox O2 Del Method O2 Flow Rate 10/14/24 11:27 114 H 28 H 99 BiPAP 10/14/24 11:20 98.9 F 115 H 31 H 142/67 H 99 10/14/24 09:29 115 H 18 152/103 H 100 BiPAP 10/14/24 09:25 100 BiPAP 10/14/24 09:20 119 H 30 H 10/14/24 09:18 118 H 30 H 100 BiPAP 10/14/24 09:12 130 H 32 H 10/14/24 07:49 98.2 F 115 H 14 153/73 H 90 10/14/24 06:00 114 H 10/14/24 04:23 100.0 F H 113 H 18 171/66 H 92 10/14/24 04:00 112 H 10/14/24 04:00 92 Room Air 10/14/24 02:00 109 H 10/14/24 00:00 110 H 10/14/24 00:00 93 Room Air 10/13/24 23:59 98.9 F 111 H 16 164/66 H 99 10/13/24 22:00 110 H 10/13/24 21:20 92 Room Air 10/13/24 20:00 110 H 10/13/24 20:00 92 Room Air 10/13/24 19:08 98.5 F 110 H 20 132/72 92 10/13/24 18:00 114 H 22 H 149/61 H 94 10/13/24 18:00 114 H 10/13/24 16:00 113 H 10/13/24 16:00 95 Room Air 10/13/24 16:00 98.2 F 110 H 25 H 134/71 98 Intake/Output Intake/Output: Intake & Output 10/11/24 10/12/24 10/13/24 10/14/24 23:59 23:59 23:59 23:59 Intake Total 300 800 120 Output Total 3056 Balance 300 -2256 120 Meds/Results Medications: Active Medications Generic Name Dose Route Start Last Admin Trade Name Freq PRN Reason Stop Dose Admin Acetaminophen 650 mg 10/13/24 00:27 10/13/24 01:57 Acetaminophen 650 Mg Suppository RECTAL 650 mg Q6H PRN Administration Mild Pain (1-3) or Fever Albuterol/Ipratropium 3 ml 10/14/24 20:00 Ipratropium 0.5 Mg/Albuterol Sulfate 2.5 Mg Ampul.Neb 3 Ml INHALATION Q6HRT RENAE Heparin Sodium (Porcine) 5,000 units 10/13/24 14:00 10/14/24 15:00 Heparin Sodium 5,000 Units/Ml Vial SUB-Q 5,000 units Q8HR RENAE Administration Azithromycin 500 mg in 250 mls @ 250 mls/hr 10/13/24 18:00 10/13/24 19:25 Zithromax IVPB Infused Q24H RENAE Infusion Albumin Human 50 mls @ 999 mls/hr 10/13/24 07:40 Albutein IVPB 11/12/24 07:39 Q10M PRN HYPOTENSION Metronidazole 500 mg in 100 mls @ 100 mls/hr 10/14/24 14:00 10/14/24 14:56 Flagyl 500 Mg/Iso Soln 100 Ml IVPB 100 mls/hr Q6H RENAE Administration Cefepime HCl 1 gm in 50 mls @ 100 mls/hr 10/14/24 21:00 Maxipime 1 Gm/Ns 50 Ml IVPB Q24H RENAE Vancomycin HCl 1 each 10/13/24 09:04 Vancomycin For Hemodialysis IVPB PRN PRN Vancomycin Protocol Radiology Results: ITS Impressions Chest CTA 10/12/24 16:52 IMPRESSION: 1. No pulmonary embolus. Sensitivity is moderately decreased by motion artifact. 2. Pneumonia in right middle lobe and right lower lobe. Chest X-Ray 10/14/24 09:27 Impression: Stable to mildly worsened bibasilar airspace disease, right worse than left. Findings could reflect pulmonary edema versus pneumonia. Correlate clinically. Labs Labs: Laboratory Tests 10/14/24 04:55 10/14/24 04:55 Calcium 10.7 H Phosphorus 3.8 Magnesium 2.1 Total Bilirubin 0.8 AST 23 ALT 12 Alkaline Phosphatase 90 Total Protein 7.0 Albumin 4.5 Random Vancomycin 13.8 Microbiology 10/12/24 15:05 Blood Blood Culture - Preliminary 10/12/24 15:23 Blood Blood Culture - Preliminary
[2024-10-14 14:19] LABS: Alveolar/Arterial O2 Gradient 157.1 mmHg; Base Excess ABG -1.1 mEq/l (+/-2.0); Device BIPAP; Fractional Inspired Oxygen 40 %; HCO3 ABG 22.5 mEq/l (22.0-26.0); Modified Allen's Test Pass; Oxygen Content ABG 14.2 %vol (16.0-22.0); Oxygen Saturation ABG 97.2 % (95.0-100.0); Oxyhemoglobin 96.6 % THb (90.0-100.0); PCO2 ABG 33.5 mmHg (35.0-45.0); PO2 ABG 89.6 mmHg (80.0-100.0); PO2 FiO2 Ratio Arterial Blood 2.24 %; Site Drawn RIGHT RADIAL; Total Hemoglobin 10.4 g/dL (12.0-18.0); pH ABG 7.445 (7.350-7.450)
[2024-10-14 14:20] LABS: Expiratory Pressure 6 cmH2O; Inspiratory Pressure 12 cmH2O
--- NOTE | 2024-10-14 14:44 | P.PNIM_ITS ---
Progress Note: A&P Assessment and Plan (1) Acute hypoxemic respiratory failure: Code(s): J96.01 - Acute respiratory failure with hypoxia Status: Acute (2) Pneumonia: Code(s): J18.9 - Pneumonia, unspecified organism Status: Acute (3) ESRD on hemodialysis: Code(s): N18.6 - End stage renal disease; Z99.2 - Dependence on renal dialysis Status: Acute (4) Urinary tract infection: Qualifiers: Urinary tract infection type: site unspecified Hematuria presence: without hematuria Qualified Code(s): N39.0 - Urinary tract infection, site not specified Code(s): N39.0 - Urinary tract infection, site not specified Status: Acute (5) Hypertension: Code(s): I10 - Essential (primary) hypertension Status: Chronic Plan This is a 83-year-old female presented from dialysis with shortness of breath. She reported having increased cough over the past day or so. No chest pain reported. Recent hip fracture. Has underlying history of end-stage renal disease on hemodialysis. Laboratory workup revealed normal WBC of 4.8 mild anemia at 10.1 creatinine of 3.3 electrolytes were unremarkable. Troponin was negative. LFT was normal. Influenza RSV COVID swab was negative. ABG showed 7.54/30/105/26. Chest x-ray with infiltrates. Urinalysis suggestive of UTI. CTA chest showed no PE. showed Pneumonia and right middle lobe and right lower lobe noted. On ED evaluation she was hypertensive and mildly tachycardic patient was placed on a BiPAP due to respiratory distress overnight. tapered to oxygen via NC. acute hypoxic resp failure, continues to require bipap support intermittently. suspect aspiration pneumonia with right sided predominance. wbc count up as well. will change antibiotics to cefepime. add flagyl for anaerobic coverage ESRD on HD nephrology consulted. UTI: esquivel catheter inserted and drained purulent drainage. follow urine culture dysphagia: on dysphagia diet. speech to see HTN: home meds dvt proph: heparin sq code status: full code switched to DNR as discussed with daughter Anemia of chronic disease Memory loss/dementia on memantine at home Cerebrovascular accident Gout Subjective Date/time seen: 10/14/24 14:44 Interval history: patient had rapid response,when she went quickly hypoxic, needed to be placed on BIPAP, which improved some. daughter at bedtime and discussed with her. changed code status to DNR as she has wished in the past. Review of Systems Review of Systems: ROS unobtainable: Yes unobtainable due to medical condition (on BiPAP) Exam Narrative: General: Elderly female, pleasantly confused, in no acute distress HEENT:? Pupils equal and reactive, sclerae is clear Neck:? Sub Respiratory:? Coarse breath sounds bilaterally, decreased air entry at bases rhonchi bilaterally Cardiac:? Sinus tachycardia Abdomen:? Cough, nontender, nondistended, hypoactive bowel sounds Extremities:? Albumin pedal pulses, no edema Neuro:? Patient is awake, answers to questions, follows simple commands, pleasantly confused Skin:? No skin lesions noted Psych:? [place] mentation but pleasantly confused Objective Data Vital Signs Vital Signs: Vital Signs - 24 hr 10/13/24 16:00 10/13/24 16:00 10/13/24 16:00 Temperature 98.2 F Pulse Rate 110 H 113 H Respiratory Rate 25 H Blood Pressure 134/71 Pulse Oximetry 98 95 Oxygen Delivery Room Air Oxygen Flow Rate Fraction of Inspired Oxygen 10/13/24 18:00 10/13/24 18:00 10/13/24 19:08 Temperature 98.5 F Pulse Rate 114 H 114 H 110 H Respiratory Rate 22 H 20 Blood Pressure 149/61 H 132/72 Pulse Oximetry 94 92 Oxygen Delivery Oxygen Flow Rate Fraction of Inspired Oxygen 10/13/24 20:00 10/13/24 20:00 10/13/24 21:20 Temperature Pulse Rate 110 H Respiratory Rate Blood Pressure Pulse Oximetry 92 92 Oxygen Delivery Room Air Room Air Oxygen Flow Rate Fraction of Inspired Oxygen 10/13/24 22:00 10/13/24 23:59 10/14/24 00:00 Temperature 98.9 F Pulse Rate 110 H 111 H Respiratory Rate 16 Blood Pressure 164/66 H Pulse Oximetry 99 93 Oxygen Delivery Room Air Oxygen Flow Rate Fraction of Inspired Oxygen 10/14/24 00:00 10/14/24 02:00 10/14/24 04:00 Temperature Pulse Rate 110 H 109 H Respiratory Rate Blood Pressure Pulse Oximetry 92 Oxygen Delivery Room Air Oxygen Flow Rate Fraction of Inspired Oxygen 10/14/24 04:00 10/14/24 04:23 10/14/24 06:00 Temperature 100.0 F H Pulse Rate 112 H 113 H 114 H Respiratory Rate 18 Blood Pressure 171/66 H Pulse Oximetry 92 Oxygen Delivery Oxygen Flow Rate Fraction of Inspired Oxygen 10/14/24 07:49 10/14/24 09:12 10/14/24 09:18 Temperature 98.2 F Pulse Rate 115 H 130 H 118 H Respiratory Rate 14 32 H 30 H Blood Pressure 153/73 H Pulse Oximetry 90 100 Oxygen Delivery BiPAP Oxygen Flow Rate Fraction of Inspired Oxygen 10/14/24 09:20 10/14/24 09:25 10/14/24 09:29 Temperature Pulse Rate 119 H 115 H Respiratory Rate 30 H 18 Blood Pressure 152/103 H Pulse Oximetry 100 100 Oxygen Delivery BiPAP BiPAP Oxygen Flow Rate Fraction of Inspired Oxygen 100 10/14/24 11:20 10/14/24 11:27 10/14/24 12:15 Temperature 98.9 F Pulse Rate 115 H 114 H Respiratory Rate 31 H 28 H Blood Pressure 142/67 H Pulse Oximetry 99 99 94 Oxygen Delivery BiPAP Nasal Cannula Oxygen Flow Rate 3 Fraction of Inspired Oxygen Intake/Output Intake/Output: Intake & Output 10/11/24 10/12/24 10/13/24 10/14/24 23:59 23:59 23:59 23:59 Intake Total 300 800 120 Output Total 3056 Balance 300 -2256 120 Meds/Results Medications: Active Medications Generic Name Dose Route Start Last Admin Trade Name Freq PRN Reason Stop Dose Admin Acetaminophen 650 mg 10/13/24 00:27 10/13/24 01:57 Acetaminophen 650 Mg Suppository RECTAL 650 mg Q6H PRN Administration Mild Pain (1-3) or Fever Heparin Sodium (Porcine) 5,000 units 10/13/24 14:00 10/14/24 05:03 Heparin Sodium 5,000 Units/Ml Vial SUB-Q 5,000 units Q8HR RENAE Administration Azithromycin 500 mg in 250 mls @ 250 mls/hr 10/13/24 18:00 10/13/24 19:25 Zithromax IVPB Infused Q24H RENAE Infusion Albumin Human 50 mls @ 999 mls/hr 10/13/24 07:40 Albutein IVPB 11/12/24 07:39 Q10M PRN HYPOTENSION Metronidazole 500 mg in 100 mls @ 100 mls/hr 10/14/24 14:00 Flagyl 500 Mg/Iso Soln 100 Ml IVPB Q6H RENAE Cefepime HCl 1 gm in 50 mls @ 100 mls/hr 10/14/24 21:00 Maxipime 1 Gm/Ns 50 Ml IVPB Q24H RENAE Vancomycin HCl 1 each 10/13/24 09:04 Vancomycin For Hemodialysis IVPB PRN PRN Vancomycin Protocol Radiology Results: ITS Impressions Chest CTA 10/12/24 16:52 IMPRESSION: 1. No pulmonary embolus. Sensitivity is moderately decreased by motion artifact. 2. Pneumonia in right middle lobe and right lower lobe. Chest X-Ray 10/14/24 09:27 Impression: Stable to mildly worsened bibasilar airspace disease, right worse than left. Findings could reflect pulmonary edema versus pneumonia. Correlate clinically. Labs Labs: Laboratory Results - last 24 hr 10/14/24 10/14/24 10/14/24 04:55 09:16 14:12 WBC 22.3 H RBC 2.75 L Hgb 8.1 L Hct 26.7 L MCV 97.1 MCH 29.5 MCHC 30.3 L RDW 16.0 H Plt Count 129 L MPV 9.0 Immature Gran % (Auto) Not Reportable Neut % (Auto) Not Reportable Lymph % (Auto) Not Reportable [place] % (Auto) Not Reportable Eos % (Auto) Not Reportable Baso % (Auto) Not Reportable Lymph # (Auto) Not Reportable [place] # (Auto) Not Reportable Eos # (Auto) Not Reportable Baso # (Auto) Not Reportable Abs Immat Gran (auto) Not Reportable Absolute Neuts (auto) Not Reportable Absolute Nucleated RBC Not Reportable Total Counted 100 Neutrophils % (Manual) 77 H Band Neutrophils % 4 Lymphocytes % (Manual) 12.0 L Monocytes % (Manual) 7 Nucleated RBC % Not Reportable Abs Neuts (Manual) 18.06 H Abs Lymphs (Manual) 2.67 Abs Monocytes (Manual) 1.56 H Platelet Estimate Decreased Hypochromasia 1+ Anisocytosis 1+ Schistocytes None seen Puncture Site Right radial Right radial ABG pH 7.300 L 7.445 ABG pCO2 45.7 H 33.5 L ABG pO2 239.3 H 89.6 ABG PO2/FiO2 Ratio 2.39 2.24 ABG HCO3 22.0 22.5 ABG O2 Saturation 99.5 97.2 ABG O2 Content 15.4 L 14.2 L ABG Base Excess -4.3 -1.1 A-a Gradient 428.0 157.1 Oxyhemoglobin 99.3 96.6 Total Hemoglobin 10.6 L 10.4 L O2 Delivery Device Bipap Bipap O2 Liters/Min Not Reportable Not Reportable FiO2 100 40 Expiratory Pressure 6 6 Inspiratory Pressure 12 12 Sodium 140 Potassium 4.7 Chloride 104 Carbon Dioxide 25 Anion Gap 11 BUN 24 H D Creatinine 3.00 H Estim Creat Clear Calc 11 Estimated GFR 15 L Glucose 79 Calcium 10.7 H Phosphorus 3.8 Magnesium 2.1 Total Bilirubin 0.8 AST 23 ALT 12 Alkaline Phosphatase 90 Total Protein 7.0 Albumin 4.5 Random Vancomycin 13.8
[2024-10-14] MEDS: metroNIDAZOLE 500 MG/ISO 100ML 500 MG/100 ML BAG 100 MG IVPB ×2 (14:56→20:08)
[2024-10-14] MEDS: LORazepam INJ (*CRX) 2 MG/ML VIAL 0.5 MG IV PUSH (18:00)
[2024-10-14] MEDS: AZITHROMYCIN 500 MG/NS 250 ML 500 MG/250 ML BAG 250 MG IVPB (18:31)
[2024-10-14] MEDS: methylPREDNISolone SOD SUCC 40 MG VIAL IV PUSH (18:31)
[2024-10-14] MEDS: LEVALBUTEROL NEB 1.25 MG/3 ML INHALATION (20:41)
[2024-10-14] MEDS: IPRATROPIUM BR 0.02% INH SOLN 0.5 MG/2.5 ML VIAL INHALATION (20:42)
[2024-10-14] MEDS: CEFEPIME 1 GM/NS 50 ML 1 GM/50 ML BAG IVPB (21:02)
[2024-10-14] MEDS: LORazepam INJ (*CRX) 2 MG/ML VIAL 1 MG IV PUSH (22:10)
[2024-10-14] MEDS: MORPHINE SULFATE (*CRX) 2 MG/ML INJ 1 MG IV PUSH (22:11)
[2024-10-15] VITALS (49 sets, daily range): BP systolic 66–176; BP diastolic 44–98; PULSE 65–145; RESP 20–38; TEMP 36.3–37.5; O2SAT 81–100; BMI 17.0
[2024-10-15] MEDS: LEVALBUTEROL NEB 1.25 MG/3 ML INHALATION ×3 (02:02→14:10)
[2024-10-15] MEDS: IPRATROPIUM BR 0.02% INH SOLN 0.5 MG/2.5 ML VIAL INHALATION ×3 (02:02→14:10)
[2024-10-15] MEDS: metroNIDAZOLE 500 MG/ISO 100ML 500 MG/100 ML BAG 100 MG IVPB ×2 (02:32→09:08)
[2024-10-15] MEDS: methylPREDNISolone SOD SUCC 40 MG VIAL IV PUSH ×2 (02:32→09:17)
[2024-10-15] MEDS: LORazepam INJ (*CRX) 2 MG/ML VIAL 0.5 MG IV PUSH ×2 (03:36→09:07)
[2024-10-15 05:27] LABS: Basophils Absolute Auto 0.1 K/mm3 (0.0-0.1); Basophils Percent Auto 0.4 % (0.2-1.2); Eosinophils Absolute Auto 0.2 K/mm3 (0-0.3); Hematocrit 33.7 % (37.0-47.0); Hemoglobin 10.1 g/dL (12.0-15.0); Immature Granulocyte Absolute 0.78 K/mm3 (0.00-0.031); Lymphocytes Absolute Auto 0.72 K/mm3 (0.9-3.2); Lymphocytes Percent Auto 3.7 % (18.3-44.2); Mean Corpuscular Hemoglobin 29.6 pg (26-34); Mean Corpuscular Volume 98.8 fl (80-100); Mean Platelet Volume 9.9 fl (7.4-10.4); Monocytes Absolute Auto 0.8 K/mm3 (0.1-0.6); Neutrophils Absolute Auto 17.1 K/mm3 (1.3-6.7); Neutrophils Percent Auto 86.9 % (45.5-73.1); Platelet Count Result 198 k/mm3 (150-375); Red Blood Count 3.41 M/mm3 (4.2-5.4); Red Cell Distribution Width 15.9 % (11.5-14.5); White Blood Count 19.7 K/mm3 (4.5-10.0)
[2024-10-15 05:48] LABS: Alanine Aminotransferase 13 U/L (6-35); Albumin Level 4.3 g/dL (3.5-5.1); Alkaline Phosphatase 117 U/L (38-126); Anion Gap 20 mmol/L (4-12); Aspartate Amino Transferase 22 U/L (14-36); Bilirubin,Total 0.7 mg/dL (0.2-1.3); Blood Urea Nitrogen 55 mg/dL (7-17); Calcium 10.6 mg/dL (8.4-10.2); Carbon Dioxide 15 mmol/L (22-30); Chloride 107 mmol/L (98-107); Estimated CRCL calculation 7 ml/min; Estimated Glomerular Filt Rate 9; Glucose 144 mg/dL (65-110); Magnesium 2.4 mg/dL (1.6-2.3); Phosphorus 6.5 mg/dL (2.5-4.5); Potassium 5.7 mmol/L (3.4-5.0); Sodium 142 mmol/L (137-145)
[2024-10-15 05:50] LABS: Vancomycin Random 10.6 ug/mL (10-20)
[2024-10-15 06:06] LABS: Anisocytosis 1+; Platelet Estimate Adequate (Adequate); Schistocytes None Seen
[2024-10-15] MEDS: HEPARIN SODIUM 5,000 UNITS/ML VIAL 5000 UNITS SUB-Q (06:37)
[2024-10-15] MEDS: SODIUM CHLOR 3% 15 ML NEB (RESPIRATORY THERAPY) 6 ML INHALATION (09:02)
[2024-10-15] MEDS: METOPROLOL TARTRATE INJ 5 MG/5 ML VIAL 2.5 MG IV PUSH (09:06)
--- NOTE | 2024-10-15 10:30 | P.PNNP_ITS ---
Progress Note: A&P Assessment and Plan (1) End stage renal disease: Code(s): N18.6 - End stage renal disease Status: Chronic Assessment and Plan: * HD today * continue Tuesday/Tuesday/Tuesday outpatient dialysis schedule while hospitalized * follow electrolytes, volume status, and clearance (2) Acute hypoxemic respiratory failure: Code(s): J96.01 - Acute respiratory failure with hypoxia Status: Acute Assessment and Plan: * no significant improvement (and appears clinically worse) * noted on admission * CXR with infiltrates * CTA of chest with no PE but pneumonia in right middle lobe and right lower lobe noted * interestingly, no significant evidence of pulmonary edema * viral testing for influenza/RSV/COVID negative * intermittent BIPAP support and supplemental oxygen as tolerated * continue supportive therapy (3) Pneumonia: Code(s): J18.9 - Pneumonia, unspecified organism Status: Acute Assessment and Plan: * presumed etiology of #2 * as noted by CT of chest on admission * presumably community acquired * however, possible aspiration (?) -- pneumonia localized to right middle and lower lobe * follow culture data * on antibiotics (4) Urinary tract infection: Qualifiers: Hematuria presence: without hematuria Urinary tract infection type: s ite unspecified Qualified Code(s): N39.0 - Urinary tract infection, site not specified Code(s): N39.0 - Urinary tract infection, site not specified Status: Acute Assessment and Plan: * esquivel catheter with purulent drainage * UA highly suggestive * follow culture data * on antibiotics (5) Anemia: Code(s): D64.9 - Anemia, unspecified Status: Chronic Assessment and Plan: * related to ESRD and acute illness * Retacrit with HD * follow trend of H/H (6) Hypertension: Code(s): I10 - Essential (primary) hypertension Status: Chronic Assessment and Plan: * can fluctuate to extremes * quite elevated in ER/admission * resumed on home medications * follow trend of hemodynamics (7) Dementia: Code(s): F03.90 - Unspecified dementia, unspecified severity, without behavioral disturbance, psychotic disturbance, mood disturbance, and anxiety Status: Chronic Assessment and Plan: * appears at baseline mentation * continue supportive therapy Given ongoing worsening clinical deterioration, particularly with regard to her respiratory status, for may need to discuss with family aggressiveness of care and goals of therapy since she is already DNI. Will continue to follow. Subjective Date/time seen: 10/15/24 10:30 Interval history: Follow-up for end stage renal disease on hemodialysis. Tolerating dialysis treatment at the time of my visit (seen on HD at 10:20AM); currently on BiPAP therapy with fluctuating oxygen saturations; overall respiratory status/breathing seems quite tenuous when seen; stable hemodynamics but with noted tachycardia; nonverbal/non-communicative currently. Exam 2 Narrative: General: elderly and frail female on BiPAP support Heart: tachycardic, normal S1 and S2; no rub Lungs: coarse breath sounds with bibasilar rhonchi noted Abdomen: soft, nontender, nondistended, positive bowel sounds Extremities: no cyanosis or clubbing; no edema Skin: warm and intact Objective Data Vital Signs Vital Signs: Vital Signs Temp Pulse Resp BP Pulse Ox O2 Del Method O2 Flow Rate 10/15/24 10:30 135 H 38 H 88 L BiPAP 10/15/24 09:22 130 H 36 H 10/15/24 09:02 138 H 38 H 10/15/24 09:02 138 H 38 H 94 BiPAP 10/15/24 09:00 87 L High Flow Therapy with Na 50 10/15/24 08:45 95 High Flow Therapy with Na 50 10/15/24 08:15 123 H 36 H 10/15/24 08:00 120 H 10/15/24 07:58 122 H 35 H 10/15/24 07:58 122 H 35 H 98 BiPAP 10/15/24 07:36 99.1 F 121 H 35 H 131/77 99 10/15/24 06:00 124 H 10/15/24 04:45 98.3 F 129 H 31 H 147/85 H 97 10/15/24 04:23 100 BiPAP 10/15/24 04:00 132 H 10/15/24 02:11 120 H 34 H 10/15/24 02:03 119 H 35 H 10/15/24 02:02 119 H 34 H 98 BiPAP 10/15/24 02:00 121 H 10/15/24 00:00 100 BiPAP 10/15/24 00:00 120 H 10/14/24 22:56 97.8 F 129 H 38 H 134/80 98 10/14/24 22:00 123 H 10/14/24 20:50 122 H 38 H 10/14/24 20:42 129 H 38 H 10/14/24 20:40 129 H 38 H 94 BiPAP 10/14/24 20:00 119 H 10/14/24 20:00 94 BiPAP 10/14/24 19:56 97.6 F 123 H 37 H 131/87 93 10/14/24 17:46 124 H 32 H 86 L High Flow Therapy with Na 60 10/14/24 16:00 119 H 10/14/24 15:59 97.7 F 120 H 22 H 155/94 H 85 L 10/14/24 15:52 122 H 33 H 95 BiPAP 10/14/24 14:40 123 H 20 98 Venturi Mask 9 10/14/24 14:00 116 H 10/14/24 12:15 94 Nasal Cannula 3 10/14/24 12:00 113 H Intake/Output Intake/Output: Intake & Output 10/12/24 10/13/24 10/14/24 10/15/24 23:59 23:59 23:59 23:59 Intake Total 300 800 620 300 Output Total 3056 0 Balance 300 -2256 620 300 Meds/Results Medications: Active Medications Generic Name Dose Route Start Last Admin Trade Name Freq PRN Reason Stop Dose Admin Acetaminophen 650 mg 10/13/24 00:27 10/13/24 01:57 Acetaminophen 650 Mg Suppository RECTAL 650 mg Q6H PRN Administration Mild Pain (1-3) or Fever Epoetin Ricardo-epbx 10,000 units 10/15/24 20:08 Epoetin Ricardo-Epbx 10,000 Units/Ml Vial IV PUSH 10/15/24 20:09 ONCE ONE Heparin Sodium (Porcine) 5,000 units 10/13/24 14:00 10/15/24 06:37 Heparin Sodium 5,000 Units/Ml Vial SUB-Q 5,000 units Q8HR RENAE Administration Azithromycin 500 mg in 250 mls @ 250 mls/hr 10/13/24 18:00 10/14/24 19:31 Zithromax IVPB Infused Q24H RENAE Infusion Albumin Human 50 mls @ 999 mls/hr 10/13/24 07:40 Albutein IVPB 11/12/24 07:39 Q10M PRN HYPOTENSION Metronidazole 500 mg in 100 mls @ 100 mls/hr 10/14/24 14:00 10/15/24 11:22 Flagyl 500 Mg/Iso Soln 100 Ml IVPB Infused Q6H RENAE Infusion Cefepime HCl 1 gm in 50 mls @ 100 mls/hr 10/14/24 21:00 10/14/24 21:32 Maxipime 1 Gm/Ns 50 Ml IVPB Infused Q24H RENAE Infusion Vancomycin HCl 750 mg in 250 mls @ 250 mls/hr 10/15/24 15:00 Vancomycin 750 Mg/Ns 250 Ml IVPB 10/15/24 15:59 ONCE ONE Ipratropium [place] 0.5 mg 10/14/24 20:00 10/15/24 07:56 Ipratropium Br 0.02% Inh Soln 0.5 Mg/2.5 Ml Vial INHALATION 0.5 mg Q6HRT RENAE Administration Levalbuterol HCl 1.25 mg 10/14/24 20:00 10/15/24 07:56 Levalbuterol Neb 1.25 Mg/3 Ml INHALATION 1.25 mg Q6HRT RENAE Administration Lorazepam 0.5 mg 10/14/24 18:13 10/15/24 09:07 Lorazepam Inj (*Crx) 2 Mg/Ml Vial IV PUSH 0.5 mg Q6H PRN Administration Anxiety Methylprednisolone Sodium Succinate 40 mg 10/14/24 17:55 10/15/24 09:17 Methylprednisolone Sod Succ 40 Mg Vial IV PUSH 40 mg Q8H RENAE Administration Metoprolol Tartrate 5 mg 10/15/24 12:00 Metoprolol Tartrate Inj 5 Mg/5 Ml Vial IV PUSH Q6HR RENAE Vancomycin HCl 1 each 10/13/24 09:04 Vancomycin For Hemodialysis IVPB PRN PRN Vancomycin Protocol Radiology Results: ITS Impressions Chest CTA 10/12/24 16:52 IMPRESSION: 1. No pulmonary embolus. Sensitivity is moderately decreased by motion artifact. 2. Pneumonia in right middle lobe and right lower lobe. Chest X-Ray 10/14/24 09:27 Impression: Stable to mildly worsened bibasilar airspace disease, right worse than left. Findings could reflect pulmonary edema versus pneumonia. Correlate clinically. Labs Labs: Laboratory Tests 10/15/24 05:07 10/15/24 05:07 Calcium 10.6 H Phosphorus 6.5 H Magnesium 2.4 H Total Bilirubin 0.7 AST 22 ALT 13 Alkaline Phosphatase 117 Total Protein 7.0 Albumin 4.3 Random Vancomycin 10.6
--- NOTE | 2024-10-15 11:02 | PCSTNOTE ---
Called and spoke to nsg who reported, patient will not be able to do bedside swallow evaluation due to being in continuous dialysis and on bipap.
--- NOTE | 2024-10-15 12:05 | PM.IMPN ---
Progress Note: A&P Assessment and Plan (1) Acute hypoxemic respiratory failure: Code(s): J96.01 - Acute respiratory failure with hypoxia Status: Acute (2) Pneumonia: Code(s): J18.9 - Pneumonia, unspecified organism Status: Acute (3) ESRD on hemodialysis: Code(s): N18.6 - End stage renal disease; Z99.2 - Dependence on renal dialysis Status: Acute (4) Urinary tract infection: Qualifiers: Urinary tract infection type: site unspecified Hematuria presence: without hematuria Qualified Code(s): N39.0 - Urinary tract infection, site not specified Code(s): N39.0 - Urinary tract infection, site not specified Status: Acute (5) Hypertension: Code(s): I10 - Essential (primary) hypertension Status: Chronic Plan This is a 83-year-old female presented from dialysis with shortness of breath. She reported having increased cough over the past day or so. No chest pain reported. Recent hip fracture. Has underlying history of end-stage renal disease on hemodialysis. Laboratory workup revealed normal WBC of 4.8 mild anemia at 10.1 creatinine of 3.3 electrolytes were unremarkable. Troponin was negative. LFT was normal. Influenza RSV COVID swab was negative. ABG showed 7.54/30/105/26. Chest x-ray with infiltrates. Urinalysis suggestive of UTI. CTA chest showed no PE. showed Pneumonia and right middle lobe and right lower lobe noted. On ED evaluation she was hypertensive and mildly tachycardic patient was placed on a BiPAP due to respiratory distress overnight. tapered to oxygen via NC. acute hypoxic resp failure, continues to require bipap support intermittently. suspect aspiration pneumonia with right sided predominance. wbc count up as well. will change antibiotics to cefepime. add flagyl for anaerobic coverage. WBC count is improved today. Still requiring BiPAP support. Does not tolerate Airvo. Pulmonary consultation. Continue hypertonic saline nebs Tachycardia Toprol 5 q.6 schedule. Was on labetalol at home. ESRD on HD nephrology consulted. Going for dialysis again today. UTI: esquivel catheter inserted and drained purulent drainage. follow urine culture dysphagia: on dysphagia diet. speech to see currently NPO due to BiPAP HTN: home meds dvt proph: heparin sq code status: full code switched to DNR as discussed with daughter Anemia of chronic disease Memory loss/dementia on memantine at home Cerebrovascular accident Gout Subjective Date/time seen: 10/15/24 12:05 Interval history: Patient remain on BiPAP overnight. Received another dose of lorazepam. Daughter at bedside. Review of Systems Review of Systems: ROS unobtainable: Yes unobtainable due to medical condition (on BiPAP) Exam Narrative: General: Elderly female, pleasantly confused, in no acute distress HEENT:? Pupils equal and reactive, sclerae is clear Respiratory:? Coarse breath sounds bilaterally, decreased air entry at bases and expiratory rhonchi bilaterally Cardiac:? Sinus tachycardia Abdomen:? Soft, nontender, nondistended, hypoactive bowel sounds Extremities:? Albumin pedal pulses, no edema Neuro:? Patient is awake, answers to questions, follows simple commands, pleasantly confused Skin:? No skin lesions noted Psych:? Sheba mentation but pleasantly confused Objective Data Vital Signs Vital Signs: Vital Signs - 24 hr 10/14/24 12:15 10/14/24 14:00 10/14/24 14:40 Temperature Pulse Rate 116 H 123 H Respiratory Rate 20 Blood Pressure Pulse Oximetry 94 98 Oxygen Delivery Nasal Cannula Venturi Mask Oxygen Flow Rate 3 9 Fraction of Inspired Oxygen 35 10/14/24 15:52 10/14/24 15:59 10/14/24 16:00 Temperature 97.7 F Pulse Rate 122 H 120 H 119 H Respiratory Rate 33 H 22 H Blood Pressure 155/94 H Pulse Oximetry 95 85 L Oxygen Delivery BiPAP Oxygen Flow Rate Fraction of Inspired Oxygen 10/14/24 17:46 10/14/24 19:56 10/14/24 20:00 Temperature 97.6 F Pulse Rate 124 H 123 H Respiratory Rate 32 H 37 H Blood Pressure 131/87 Pulse Oximetry 86 L 93 94 Oxygen Delivery High Flow Therapy with Na BiPAP Oxygen Flow Rate 60 Fraction of Inspired Oxygen 90 50 10/14/24 20:00 10/14/24 20:40 10/14/24 20:42 Temperature Pulse Rate 119 H 129 H 129 H Respiratory Rate 38 H 38 H Blood Pressure Pulse Oximetry 94 Oxygen Delivery BiPAP Oxygen Flow Rate Fraction of Inspired Oxygen 10/14/24 20:50 10/14/24 22:00 10/14/24 22:56 Temperature 97.8 F Pulse Rate 122 H 123 H 129 H Respiratory Rate 38 H 38 H Blood Pressure 134/80 Pulse Oximetry 98 Oxygen Delivery Oxygen Flow Rate Fraction of Inspired Oxygen 10/15/24 00:00 10/15/24 00:00 10/15/24 02:00 Temperature Pulse Rate 120 H 121 H Respiratory Rate Blood Pressure Pulse Oximetry 100 Oxygen Delivery BiPAP Oxygen Flow Rate Fraction of Inspired Oxygen 50 10/15/24 02:02 10/15/24 02:03 10/15/24 02:11 Temperature Pulse Rate 119 H 119 H 120 H Respiratory Rate 34 H 35 H 34 H Blood Pressure Pulse Oximetry 98 Oxygen Delivery BiPAP Oxygen Flow Rate Fraction of Inspired Oxygen 10/15/24 04:00 10/15/24 04:23 10/15/24 04:45 Temperature 98.3 F Pulse Rate 132 H 129 H Respiratory Rate 31 H Blood Pressure 147/85 H Pulse Oximetry 100 97 Oxygen Delivery BiPAP Oxygen Flow Rate Fraction of Inspired Oxygen 50 10/15/24 06:00 10/15/24 07:36 10/15/24 07:58 Temperature 99.1 F Pulse Rate 124 H 121 H 122 H Respiratory Rate 35 H 35 H Blood Pressure 131/77 Pulse Oximetry 99 98 Oxygen Delivery BiPAP Oxygen Flow Rate Fraction of Inspired Oxygen 10/15/24 07:58 10/15/24 08:00 10/15/24 08:15 Temperature Pulse Rate 122 H 120 H 123 H Respiratory Rate 35 H 36 H Blood Pressure Pulse Oximetry Oxygen Delivery Oxygen Flow Rate Fraction of Inspired Oxygen 10/15/24 08:45 10/15/24 09:00 10/15/24 09:02 Temperature Pulse Rate 138 H Respiratory Rate 38 H Blood Pressure Pulse Oximetry 95 87 L 94 Oxygen Delivery High Flow Therapy with Na High Flow Therapy with Na BiPAP Oxygen Flow Rate 50 50 Fraction of Inspired Oxygen 50 50 10/15/24 09:02 10/15/24 09:22 10/15/24 10:00 Temperature Pulse Rate 138 H 130 H 128 H Respiratory Rate 38 H 36 H Blood Pressure Pulse Oximetry Oxygen Delivery Oxygen Flow Rate Fraction of Inspired Oxygen 10/15/24 10:40 10/15/24 10:47 Temperature Pulse Rate 135 H 138 H Respiratory Rate 38 H Blood Pressure Pulse Oximetry 88 L 95 Oxygen Delivery BiPAP BiPAP Oxygen Flow Rate Fraction of Inspired Oxygen Intake/Output Intake/Output: Intake & Output 10/12/24 10/13/24 10/14/24 10/15/24 23:59 23:59 23:59 23:59 Intake Total 300 800 620 300 Output Total 3056 0 Balance 300 -2256 620 300 Meds/Results Medications: Active Medications Generic Name Dose Route Start Last Admin Trade Name Freq PRN Reason Stop Dose Admin Acetaminophen 650 mg 10/13/24 00:27 10/13/24 01:57 Acetaminophen 650 Mg Suppository RECTAL 650 mg Q6H PRN Administration Mild Pain (1-3) or Fever Epoetin Ricardo-epbx 10,000 units 10/15/24 20:08 Epoetin Ricardo-Epbx 10,000 Units/Ml Vial IV PUSH 10/15/24 20:09 ONCE ONE Heparin Sodium (Porcine) 5,000 units 10/13/24 14:00 10/15/24 06:37 Heparin Sodium 5,000 Units/Ml Vial SUB-Q 5,000 units Q8HR RENAE Administration Azithromycin 500 mg in 250 mls @ 250 mls/hr 10/13/24 18:00 10/14/24 19:31 Zithromax IVPB Infused Q24H RENAE Infusion Albumin Human 50 mls @ 999 mls/hr 10/13/24 07:40 Albutein IVPB 11/12/24 07:39 Q10M PRN HYPOTENSION Metronidazole 500 mg in 100 mls @ 100 mls/hr 10/14/24 14:00 10/15/24 11:22 Flagyl 500 Mg/Iso Soln 100 Ml IVPB Infused Q6H RENAE Infusion Cefepime HCl 1 gm in 50 mls @ 100 mls/hr 10/14/24 21:00 10/14/24 21:32 Maxipime 1 Gm/Ns 50 Ml IVPB Infused Q24H RENAE Infusion Vancomycin HCl 750 mg in 250 mls @ 250 mls/hr 10/15/24 15:00 Vancomycin 750 Mg/Ns 250 Ml IVPB 10/15/24 15:59 ONCE ONE Ipratropium [place] 0.5 mg 10/14/24 20:00 10/15/24 07:56 Ipratropium Br 0.02% Inh Soln 0.5 Mg/2.5 Ml Vial INHALATION 0.5 mg Q6HRT RENAE Administration Levalbuterol HCl 1.25 mg 10/14/24 20:00 10/15/24 07:56 Levalbuterol Neb 1.25 Mg/3 Ml INHALATION 1.25 mg Q6HRT RENAE Administration Lorazepam 0.5 mg 10/14/24 18:13 10/15/24 09:07 Lorazepam Inj (*Crx) 2 Mg/Ml Vial IV PUSH 0.5 mg Q6H PRN Administration Anxiety Methylprednisolone Sodium Succinate 40 mg 10/14/24 17:55 10/15/24 09:17 Methylprednisolone Sod Succ 40 Mg Vial IV PUSH 40 mg Q8H RENAE Administration Metoprolol Tartrate 5 mg 10/15/24 12:00 Metoprolol Tartrate Inj 5 Mg/5 Ml Vial IV PUSH Q6HR RENAE Vancomycin HCl 1 each 10/13/24 09:04 Vancomycin For Hemodialysis IVPB PRN PRN Vancomycin Protocol Radiology Results: ITS Impressions Chest CTA 10/12/24 16:52 IMPRESSION: 1. No pulmonary embolus. Sensitivity is moderately decreased by motion artifact. 2. Pneumonia in right middle lobe and right lower lobe. Chest X-Ray 10/14/24 09:27 Impression: Stable to mildly worsened bibasilar airspace disease, right worse than left. Findings could reflect pulmonary edema versus pneumonia. Correlate clinically. Labs Labs: Laboratory Results - last 24 hr 10/14/24 10/15/24 14:12 05:07 WBC 19.7 H RBC 3.41 L Hgb 10.1 L Hct 33.7 L MCV 98.8 MCH 29.6 MCHC 30.0 L RDW 15.9 H Plt Count 198 D MPV 9.9 Immature Gran % (Auto) 4.0 H Neut % (Auto) 86.9 H Lymph % (Auto) 3.7 L Ray % (Auto) 4.0 Eos % (Auto) 1.0 Baso % (Auto) 0.4 Lymph # (Auto) 0.72 L Ray # (Auto) 0.8 H Eos # (Auto) 0.2 Baso # (Auto) 0.1 Abs Immat Gran (auto) 0.78 H Absolute Neuts (auto) 17.1 H Absolute Nucleated RBC 0.000 Nucleated RBC % 0.0 Platelet Estimate Adequate Anisocytosis 1+ Schistocytes None seen Puncture Site Right radial ABG pH 7.445 ABG pCO2 33.5 L ABG pO2 89.6 ABG PO2/FiO2 Ratio 2.24 ABG HCO3 22.5 ABG O2 Saturation 97.2 ABG O2 Content 14.2 L ABG Base Excess -1.1 A-a Gradient 157.1 Oxyhemoglobin 96.6 Total Hemoglobin 10.4 L O2 Delivery Device Bipap O2 Liters/Min Not Reportable FiO2 40 Expiratory Pressure 6 Inspiratory Pressure 12 Sodium 142 Potassium 5.7 H Chloride 107 Carbon Dioxide 15 L Anion Gap 20 H BUN 55 H D Creatinine 4.70 H Estim Creat Clear Calc 7 Estimated GFR 9 L Glucose 144 H Calcium 10.6 H Phosphorus 6.5 H Magnesium 2.4 H Total Bilirubin 0.7 AST 22 ALT 13 Alkaline Phosphatase 117 Total Protein 7.0 Albumin 4.3 Random Vancomycin 10.6
[2024-10-15] MEDS: EPOETIN ALFA-EPBX 10,000 UNITS/ML VIAL 10000 UNITS IV PUSH (12:18)
[2024-10-15] MEDS: LORazepam INJ (*CRX) 2 MG/ML VIAL IV PUSH ×2 (16:23→21:52)
--- OUTSIDE RECORDS SUMMARY | 2024-10-15 16:31 | XMS_ITS | Encounter Summary ---
Author Organization [facility] Address [address] [place] [address] Care Team Providers Care Room Service Food Server Name Role Phone Yanira Meyers PROTECTIVE SIGNAL OPERATOR-HOUSE CALLS NURSE PRACTITIONER Primary Care Provid er Encounter Details Date Type Department Care Team (Latest Contact Info) Description 10/13/2023 Travel Social History Tobacco Use Types Packs/Day Years Used Date Smoking Tobacco: Former Cigarettes 1 18 0 10/31/1965 - 10/31/1983 Smokeless Tobacco: Never Alcohol Use Standard Drinks/Week Comments Yes 0.8 (1 standard drink = 0.6 oz p ure alcohol) occasionally AUDIT-C Answer Date Recorded Q1: How often do you have a drink containing alc ohol? Monthly or less 08/15/2022 Q2: How many drinks containi ng alcohol do you have on a typical day when you are drinking? 1 or 2 08/15/2022 Q3: How often do you have si x or more drinks on one occasion? Never 08/15/2022 PHQ-2 Answer Date Recorded PHQ2 TOTAL SCORE 1 08/18/2022 Sex and Gender Information Value Date Recorded Sex Assigned at Not on file Gender Identity Not on file Sexual Orientation Not on file documented as of this encounter Functional Status Functional Status Response Date of Assess ment Is person deaf or have serious hearing difficult y? No 08/15/2022 Is person blind or have serious difficulty seein g? No 08/15/2022 Does person have serious dif ficulty walking/climbing stairs? Yes 08/15/2022 Does person have difficulty dressing/bathing? No 08/15/2022 Does person have difficulty doing errands alone? Yes 08/15/2022 Cognitive Status Response Date of Assessm ent Does person have difficulty concentrating/remembering/making decisions? 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 [employer] Appointment [facility] [address], [address] [place], [place] [id number] Jarett Reinoso MD [address] [place], [place] [id number] Christine Benitez MD [address] [place] [phone] Keyshawn Krueger MD [address] [place] [address] [place] [address] [place] [address] [phone] documented as of this encounter Visit Diagnoses Not on filedocumented in this encounter Care Teams Room Service Food Server Relationship Specialty Start Date End Date Yanira Meyers, DOUGIE-HOUSE CALLS NURSE PRACTITIONER [address] [place] [phone] PCP - General Nurse Practitioner Family 06/15/23 documented as of this encounter
--- OUTSIDE RECORDS SUMMARY | 2024-10-15 16:31 | XMS_ITS | Patient Health Summary ---
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,non-owned Affiliates and Associated Physician Practices is amultiple site organization consisting of ambulatory clinics and hospital sitesin [place], [place], [place] and [place]. This disclosure is being madepursuant to the Care Everywhere program and may not contain all information available regarding this patient. Last updated 18.[facility] Allergies * Ramipril(Other) -Low Criticality Medications * Be aware that medications may not be up to date on this document. Alwaysverify current medications with the patient. * acetaminophen (Tylenol) 500 MG tablet(Started 09/09/2022) Take 1 (one) tablet by mouth every 4 hours as needed for Fever, Pain or Headache Maximum allowable Acetaminophen amount = 4 Grams (4000 mg) / 24 hours. * epoetin deyanira-EPBX (Retacrit) 4000 UNIT/ML injection(Started 09/11/2022) 2 mL by Intravenous route Give in dialysis on Tuesday, & Tuesday * busPIRone (Buspar) 5 MG tablet(Started 02/23/2023) Take 1 (one) tablet by mouth 3 times daily * lanthanum (Fosrenol) 1000 MG chew tablet(Started 03/23/2023) Take 1 (one) tablet by mouth 3 times daily with meals * Multiple Vitamins-Minerals (PRESERVISION AREDS 2 PO) Take 1 tablet by mouth once daily * ALPRAZolam (Xanax) 0.25 MG tablet Take 1 (one) tablet by mouth 3 times daily as needed for Anxiety * labetalol (Normodyne; Trandate) 300 MG tablet(Started 04/07/2023) Take 1 (one) tablet by mouth 2 times daily * escitalopram (Lexapro) 5 MG half tablet Take by mouth once daily * memantine (Namenda) 5 MG tablet Take 1 (one) tablet by mouth 2 times daily * amLODIPine (Norvasc) 10 MG tablet(Started 10/05/2023) Take 1 (one) tablet by mouth at bedtime * losartan (Cozaar) 50 MG tablet(Started 10/06/2023) Take 1 (one) tablet by mouth once daily * Velphoro 500 MG(Started 12/19/2023) Active Problems Problem Noted Date Diagnosed Date Syncope and collapse 09/29/2023 Subdural hematoma 09/29/2023 Fall, initial encounter 09/29/2023 ESRD (end stage renal disease) 06/15/2023 Pleural effusion 08/23/2022 Aspiration pneumonia 08/23/2022 Dysphagia 08/23/2022 Hyponatremia 08/23/2022 Elevated troponin 08/23/2022 Hypoalbuminemia 08/23/2022 High anion gap metabolic acidosis 08/23/2022 Normocytic anemia 08/23/2022 Acute decompensated heart failure 08/23/2022 Respiratory failure with hypoxia 08/23/2022 Hypertensive emergency 08/23/2022 Intracranial hemorrhage, nontraumatic 08/15/2022 Cervicalgia 04/06/2019 Contact dermatitis and other eczema 04/06/2019 Hypertonicity of bladder 04/06/2019 Hypertrophy of breast 04/06/2019 Pain in joint, shoulder region 04/06/2019 Pain in thoracic spine 04/06/2019 Thoracic or lumbosacral neuritis or radiculitis 04/06/2019 Disorder of skin and subcutaneous tissue 019 Neuroma of foot 09/08/2018 Encounter for routine gynecological examination 08/23/2018 Osteoporosis 05/18/2017 Hearing loss 05/18/2017 Acute renal failure (ARF) 07/14/2015 Hypertensive chronic kidney disease with stage 1 through stage 4 chronic kidney disease, or unspecified chronic kidney disease 07/13/2015 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 06/23/2010 Mixed hyperlipidemia 06/23/2010 Resolved Problems Problem Noted Date Diagnosed Date Resolved Date Hypertensive urgency 08/23/2022 022 Acute bronchitis 04/06/2019 08/23/2022 Acute pharyngitis 04/06/2019 04/20/2019 Allergic urticaria 04/06/2019 Disturbance of skin sensation 04/06/2019 08/23/2022 Dizziness and giddiness 04/06/201908/01 Other malaise and fatigue 04/06/2019 Generalized muscle weakness 04/06/2019 08/23/2022 Neoplasm of uncertain behavior of skin 04/06/2019 08/23/2022 Affections of shoulder region 04/06/2019 08/23/2022 Other specified diffuse dise ase of connective tissue 04/06/2019 08/23/2022 Other specified disorder of nervous system 04/06/2019 08/23/2022 Acute sinusitis 04/06/2019 05/04/2019 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 05/05/2018 08/23/2022 Chronic kidney disease, stage 2 (mild) 02/06/2018 08/23/2022 Other proteinuria 01/10/2018 08/23/2022 Encounter for general adult medical examination without abnormal findings 05/18/2017 Localized morphea 05/18/2017 08/23/2022 Other symptoms and signs inv olving the musculoskeletal system 05/18/2017 08/23/2022 Hypokalemia 05/18/2017 08/23/2022 Adverse effect of carbonic-a nhydrase inhibitors, benzothiadiazides and other diuretics, initial encounter 05/18/2017 08/23/2022 Other specified health status 05/18/2017 08/23/2022 Localized edema 11/29/2016 08/23/2022 Chronic kidney disease, stage 3 (moderate) 04/18/2016 08/23/2022 Hypertension 06/11/2015 08/23/2022 Other amnesia 06/20/2014 08/23/2022 Need for prophylactic vaccin ation and inoculation against influenza 08/27/2011 08/23/2022 Senile osteoporosis 06/23/2010 08/23/20 22 Immunizations * INFLUENZA VACCINE, TRIV. (AFLURIA, FLUZONE TRIVALENT; 6MO+) (IIV3)(Given 08/06/2013, 08/27/2011) * FLU, HISTORIC VACCINE(Given 08/22/2020) * INFLUENZA(Given 08/22/2020, 09/08/2018, 08/05/2017, 09/09/2015) * INFLUENZA VACCINE, ADJUVANTED, QUADR. (FLUAD QUADRIVALENT; 65Y+) (AIIV4)(Given 09/28/2021) * INFLUENZA VACCINE, HIGH-DOSE, QUADR. (FLUZONE HIGH-DOSE QUADRIVALENT; 65Y+), 0.7 ML (HD-IIV4)(Given 08/22/2020, 08/29/2019, 08/29/2019, 09/08/2018, 08/05/2017, 09/09/2015) * PNEUMOCOCCAL PPSV23(Given 09/08/2018) * Pneumococcal Pcv13 Conj(Given 08/05/2017) * TDAP, HISTORIC VACCINE(Given 09/28/2021) * iNFLUENZA VACCINE, RECOM-ALDANA, QUADR. (FLUBLOCK QUADRIVALENT; 18Y+) (RIV4)(Given 12/28/2021) Social History Tobacco Use Types Packs/Day Years Used Date Smoking Tobacco: Former Cigarettes 1 18 0 10/31/1965 - 10/31/1983 Smokeless Tobacco: Never Tobacco Cessation:Counseling Given: No Alcohol Use Standard Drinks/Week Comments Yes 0.8 [...] on file Sexual Orientation Not on file Last Filed Vital Signs Vital Sign Reading Time Taken Comments Blood Pressure 127/59 08/16/2024 10:50 AM CDT Pulse 65 08/16/2024 10:50 AM CDT Temperature 37.2 ??C (98.9 ??F) 08/16/2024 9:45 AM CD T Respiratory Rate 11 08/16/2024 10:50 AM CDT Oxygen Saturation 94% 08/16/2024 10:50 AM CDT Inhaled Oxygen Concentration 40% 08/31/2022 7 :36 PM CDT Weight 59 kg (130 lb) 08/16/2024 9:45 AM CDT Height 172.7 cm (5' 8 ) 08/16/2024 9:45 AM CDT Body Mass Index 19.77 08/16/2024 9:45 AM CDT Medical Devices Implanted Type Area Glass Tube Bender Device Identifier Shelf Expiration Date Model / Serial / Lot Kit Durathane Drflw Embosafe Chrnc Dlys Implanted:Qty: 1 on 08/25/2022 at [facility] Right: Chest [employer] 11/30/2024 [id number] / / [id number] Graft Vasc 4-7mm 45cm Grtx Std Wl Tpr - [id number] Implanted:Qty: 1 on 06/15/2023 by Leland Thompson MD at [facility] Left: Arm [employer] 03/05/2028 [id number] / [id number] / Procedures * CARDIAC RHYTHM STRIP ORDER(Performed 08/21/2024) * CARDIAC RHYTHM STRIP ORDER(Performed 05/17/2024) * IR ANGIO AV SHUNT IMAGING(Performed 05/15/2024) Performed for ESRD (end stage renal disease) ([facility]) * CARDIAC RHYTHM STRIP ORDER(Performed 02/16/2024) * IR ANGIO AV SHUNT IMAGING(Performed 02/15/2024) Performed for ESRD (end stage renal disease) ([facility]) * CARDIAC RHYTHM STRIP ORDER(Performed 11/11/2023) * IR ANGIO AV SHUNT IMAGING(Performed 11/09/2023) Performed for ESRD (end stage renal disease) ([facility]) * ECHO COMPLETE W CONTRAST(Performed 10/05/2023) Performed for Subdural hematoma ([facility]) * CALCIUM IONIZED WHOLE BLOOD(Performed 10/05/2023) * PHOSPHORUS BLOOD(Performed 10/05/2023) Performed for Syncope and collapse * MAGNESIUM BLOOD(Performed 10/05/2023) Performed for Syncope and collapse * COMPREHENSIVE METABOLIC PANEL(Performed 10/05/2023) Performed for Fall, initial encounter * CBC W AUTO DIFFERENTIAL(Performed 10/05/2023) Performed for Fall, initial encounter * CALCIUM IONIZED WHOLE BLOOD(Performed 10/04/2023) * HEMODIALYSIS INPATIENT(Performed 10/04/2023) * VITAMIN D 25-HYDROXY(Performed 10/04/2023) * PTH INTACT W/O CALCIUM(Performed 10/04/2023) * PHOSPHORUS BLOOD(Performed 10/04/2023) Performed for Syncope and collapse * MAGNESIUM BLOOD(Performed 10/04/2023) Performed for Syncope and collapse * COMPREHENSIVE METABOLIC PANEL(Performed 10/04/2023) Performed for Fall, initial encounter * CBC W AUTO DIFFERENTIAL(Performed 10/04/2023) Performed for Fall, initial encounter * CARDIAC EKG ORDER(Performed 10/03/2023) * PHOSPHORUS BLOOD(Performed 10/03/2023) Performed for Syncope and collapse * MAGNESIUM BLOOD(Performed 10/03/2023) Performed for Syncope and collapse * COMPREHENSIVE METABOLIC PANEL(Performed 10/03/2023) Performed for Fall, initial encounter * CBC W AUTO DIFFERENTIAL(Performed 10/03/2023) Performed for Fall, initial encounter * XR CHEST 1VW PORTABLE(Performed 10/02/2023) Performed for Hypertensive emergency * PHOSPHORUS BLOOD(Performed 10/02/2023) Performed for Syncope and collapse * MAGNESIUM BLOOD(Performed 10/02/2023) Performed for Syncope and collapse * COMPREHENSIVE METABOLIC PANEL(Performed 10/02/2023) Performed for Fall, initial encounter * CBC W AUTO DIFFERENTIAL(Performed 10/02/2023) Performed for Fall, initial encounter * PHOSPHORUS BLOOD(Performed 10/01/2023) Performed for Syncope and collapse * MAGNESIUM BLOOD(Performed 10/01/2023) Performed for Syncope and collapse * COMPREHENSIVE METABOLIC PANEL(Performed 10/01/2023) Performed for Fall, initial encounter * CBC W AUTO DIFFERENTIAL(Performed 10/01/2023) Performed for Fall, initial encounter * HEMODIALYSIS INPATIENT(Performed 09/30/2023) * HEMODIALYSIS INPATIENT(Performed 09/30/2023) * SARS-COV-2 (COVID-19)+INFLU A+B PCR RAPID(Performed 09/30/2023) Performed for Syncope and collapse * HEPATITIS B SURFACE ANTIGEN W RFLX CONFIRMATION(Performed 09/30/2023) Performed for ESRD (end stage renal disease) (HCC) * FERRITIN(Performed 09/30/2023) Performed for Anemia, unspecified type * IRON + TRANSFERRIN PANEL(Performed 09/30/2023) Performed for Anemia, unspecified type * PHOSPHORUS BLOOD(Performed 09/30/2023) Performed for Syncope and collapse * MAGNESIUM BLOOD(Performed 09/30/2023) Performed for Syncope and collapse * COMPREHENSIVE METABOLIC PANEL(Performed 09/30/2023) Performed for Fall, initial encounter * CBC W AUTO DIFFERENTIAL(Performed 09/30/2023) Performed for Fall, initial encounter * TROPONIN-I HIGH SENSITIVE REFLEX 1HOUR(Performed 09/29/2023) * EKG 12-LEAD(Performed 09/29/2023) Performed for Fall, initial encounter * PT-INR SLH(Performed 09/29/2023) * TEG 6S PLATELET MAPPING(Performed 09/29/2023) * TEG 6 GLOBAL HEMOSTASIS W/ LYSIS(Performed 09/29/2023) * TROPONIN-I HIGH SENSITIVE BASELINE + 1HR(Performed 09/29/2023) * MAGNESIUM BLOOD(Performed 09/29/2023) * COMPREHENSIVE METABOLIC PANEL(Performed 09/29/2023) * CBC W AUTO DIFFERENTIAL(Performed 09/29/2023) * CT LUMBAR SPINE WO CONTRAST(Performed 09/29/2023) Performed for Fall, initial encounter * CT THORACIC SPINE WO CONTRAST(Performed 09/29/2023) Performed for Fall, initial encounter * CT CHEST ABDOMEN PELVIS W CONT(Performed 09/29/2023) Performed for Fall, initial encounter * CT CERVICAL SPINE WO CONTRAST(Performed 09/29/2023) Performed for Fall, initial encounter * CT HEAD WO CONTRAST(Performed 09/29/2023) Performed for Fall, initial encounter * CARDIAC RHYTHM STRIP ORDER(Performed 08/05/2023) * IR CENTRAL LINE REMOVAL(Performed 08/03/2023) Performed for ESRD (end stage renal disease) (HCC) * IR ANGIO AV SHUNT IMAGING(Performed 08/03/2023) Performed for ESRD (end stage renal disease) (HCC) * AK INSERT CANNULA,ART-GEORGINA,MANAGEMENT SUPERVISOR(Performed 06/15/2023) Performed for End-stage renal disease with need for long-term dialysis access * PERIPHERAL BLOCK(Performed 06/15/2023) * BASIC METABOLIC PANEL (CALCIUM TOTAL)(Performed 06/15/2023) Performed for Preop examination * BASIC METABOLIC PANEL (CALCIUM TOTAL)(Performed 04/11/2023) Performed for Preop examination * CARDIAC RHYTHM STRIP ORDER(Performed 04/08/2023) * VAS BILAT MAPPING FOR HEMODIALYSIS(Performed 03/31/2023) Performed for ESRD (end stage renal disease) ([facility]) * IR CENTRAL VENOUS CATH CHECK(Performed 03/31/2023) Performed for Hypertensive chronic kidney disease with stage 1 through stage 4 chronic kidney disease, or unspecified chronic kidney disease * CARDIAC RHYTHM STRIP ORDER(Performed 03/30/2023) * IR CENTRAL LINE REPLACE(Performed 03/23/2023) Performed for ESRD (end stage renal disease) ([facility]) * HEMODIALYSIS INPATIENT(Performed 09/08/2022) * RENAL FUNCTION PANEL(Performed 09/08/2022) * CBC W/O DIFFERENTIAL(Performed 09/08/2022) * HEMODIALYSIS INPATIENT(Performed 09/06/2022) * RENAL FUNCTION PANEL(Performed 09/06/2022) * CBC W/O DIFFERENTIAL(Performed 09/06/2022) * MAGNESIUM BLOOD(Performed 09/04/2022) * HEMODIALYSIS INPATIENT(Performed 09/03/2022) * CARDIAC EKG ORDER(Performed 09/03/2022) * APHERESIS/TRANSFUSION ORDER(Performed 09/03/2022) * XR CHEST 1VW PORTABLE(Performed 09/03/2022) Performed for Fever, unspecified fever cause * MAGNESIUM BLOOD(Performed 09/03/2022) * RENAL FUNCTION PANEL(Performed 09/03/2022) * CBC W/O DIFFERENTIAL(Performed 09/03/2022) * HEMODIALYSIS INPATIENT(Performed 09/02/2022) * MAGNESIUM BLOOD(Performed 09/02/2022) * CT CHEST WO CONTRAST(Performed 09/01/2022) Performed for Acute respiratory failure with hypoxia (HCC) * FL SWALLOWING FUNCTION STUDY(Performed 09/01/2022) Performed for Acute respiratory failure with hypoxia (HCC) * HEPATITIS B CORE ANTIBODY TOTAL(Performed 09/01/2022) * FOLATE(Performed 09/01/2022) * VITAMIN B12(Performed 09/01/2022) * RENAL FUNCTION PANEL(Performed 09/01/2022) * CBC W/O DIFFERENTIAL(Performed 09/01/2022) * NOCTURNAL DESATURATION STUDY(Performed 08/31/2022) * RENAL FUNCTION PANEL(Performed 08/31/2022) * XR CHEST 1VW PORTABLE(Performed 08/31/2022) Performed for Acute respiratory failure with hypoxia (HCC) * HEMODIALYSIS INPATIENT(Performed 08/30/2022) * RENAL FUNCTION PANEL(Performed 08/30/2022) * CBC W/O DIFFERENTIAL(Performed 08/30/2022) * TRANSFUSE RED BLOOD CELL LEUKOREDUCED UNIT(S)(Performed 08/29/2022) * PREPARE RBC LEUKOREDUCED UNIT(Performed 08/29/2022) * TYPE + SCREEN PANEL(Performed 08/29/2022) * RENAL FUNCTION PANEL(Performed 08/29/2022) * MAGNESIUM BLOOD(Performed 08/29/2022) * CBC W/O DIFFERENTIAL(Performed 08/29/2022) * RENAL FUNCTION PANEL(Performed 08/28/2022) * MAGNESIUM BLOOD(Performed 08/28/2022) * CBC W/O DIFFERENTIAL(Performed 08/28/2022) * DRY ULTRAFILTRATION(Performed 08/27/2022) * DRY ULTRAFILTRATION(Performed 08/27/2022) * HEMODIALYSIS INPATIENT(Performed 08/27/2022) * RENAL FUNCTION PANEL(Performed 08/27/2022) * MAGNESIUM BLOOD(Performed 08/27/2022) * PT-INR SLH(Performed 08/27/2022) * CBC W/O DIFFERENTIAL(Performed 08/27/2022) * GLUCOSE - POINT OF CARE(Performed 08/26/2022) * GLUCOSE - POINT OF CARE(Performed 08/26/2022) * RENAL FUNCTION PANEL(Performed 08/26/2022) * RENAL FUNCTION PANEL(Performed 08/26/2022) * MAGNESIUM BLOOD(Performed 08/26/2022) * PT-INR SLH(Performed 08/26/2022) * CBC W/O DIFFERENTIAL(Performed 08/26/2022) * GLUCOSE - POINT OF CARE(Performed 08/26/2022) * GLUCOSE - POINT OF CARE(Performed 08/25/2022) * BASIC METABOLIC PANEL (CALCIUM TOTAL)(Performed 08/25/2022) * RENAL FUNCTION PANEL(Performed 08/25/2022) * POTASSIUM WHOLE BLD(Performed 08/25/2022) Performed for Hypertensive emergency * MRSA DNA PCR(Performed 08/25/2022) * IR CENTRAL LINE INSERT TUNNEL(Performed 08/25/2022) Performed for Stage 3 chronic kidney disease, unspecified whether stage 3a or 3b CKD (HCC), Acute renal failure, unspecified acute renal failure type (HCC) * HEMODIALYSIS INPATIENT(Performed 08/25/2022) * RENAL FUNCTION PANEL(Performed 08/25/2022) * MAGNESIUM BLOOD(Performed 08/25/2022) * PT-INR SLH(Performed 08/25/2022) * CBC W/O DIFFERENTIAL(Performed 08/25/2022) * GLUCOSE - POINT OF CARE(Performed 08/25/2022) * XR CHEST 1VW PORTABLE(Performed 08/24/2022) Performed for Acute bronchitis, unspecified organism * RENAL FUNCTION PANEL(Performed 08/24/2022) * GLUCOSE - POINT OF CARE(Performed 08/24/2022) * HEMODIALYSIS INPATIENT(Performed 08/24/2022) * XR CHEST 1VW PORTABLE(Performed 08/24/2022) Performed for Acute renal failure, unspecified acute renal failure type (HCC) * RENAL FUNCTION PANEL(Performed 08/24/2022) * MAGNESIUM BLOOD(Performed 08/24/2022) * PT-INR SLH(Performed 08/24/2022) * CBC W/O DIFFERENTIAL(Performed 08/24/2022) * HEPATITIS B SURFACE ANTIBODY QUANT(Performed 08/23/2022) * HEPATITIS B SURFACE ANTIGEN W RFLX CONFIRMATION(Performed 08/23/2022) * XR CHEST 1VW PORTABLE(Performed 08/23/2022) Performed for Acute bronchitis, unspecified organism * RENAL FUNCTION PANEL(Performed 08/23/2022) * HEMODIALYSIS INPATIENT(Performed 08/23/2022) * ECHO LIMITED OR FOLLOWUP(Performed 08/23/2022) Performed for Primary hypertension * HEMODIALYSIS INPATIENT(Performed 08/23/2022) * RENAL FUNCTION PANEL(Performed 08/23/2022) * MAGNESIUM BLOOD(Performed 08/23/2022) * PT-INR SLH(Performed 08/23/2022) * CBC W/O DIFFERENTIAL(Performed 08/23/2022) * XR CHEST 1VW PORTABLE(Performed 08/23/2022) Performed for SOB (shortness of breath) * LACTIC ACID BLOOD(Performed 08/22/2022) * BLOOD GASES ART + COOX PANEL(Performed 08/22/2022) * XR ABDOMEN KUB PORTABLE(Performed 08/22/2022) Performed for Encounter for imaging study to confirm nasogastric (NG) tube placement * RENAL FUNCTION PANEL(Performed 08/22/2022) * FL SWALLOWING FUNCTION STUDY(Performed 08/22/2022) Performed for Swallowing dysfunction * CT HEAD WO CONTRAST(Performed 08/22/2022) Performed for Subarachnoid hemorrhage (HCC) * CT CHEST WO CONTRAST(Performed 08/22/2022) Performed for Chest pain, unspecified type * XR CHEST 1VW(Performed 08/22/2022) Performed for SOB (shortness of breath) * BLOOD GASES ART + COOX PANEL(Performed 08/22/2022) * TROPONIN I(Performed 08/22/2022) * RENAL FUNCTION PANEL(Performed 08/22/2022) * MAGNESIUM BLOOD(Performed 08/22/2022) * PT-INR SLH(Performed 08/22/2022) * CBC W/O DIFFERENTIAL(Performed 08/22/2022) * UREA NITROGEN URINE RANDOM(Performed 08/22/2022) * OSMOLALITY URINE(Performed 08/22/2022) * CREATININE URINE RANDOM(Performed 08/22/2022) * LYTES (NA K CL) URINE RANDOM PANEL(Performed 08/22/2022) * TROPONIN I(Performed 08/21/2022) * BLOOD GASES ART + COOX PANEL(Performed 08/21/2022) * EKG 12-LEAD(Performed 08/21/2022) Performed for SOB (shortness of breath) * BASIC METABOLIC PANEL (CALCIUM TOTAL)(Performed 08/21/2022) * TROPONIN I(Performed 08/21/2022) * UREA NITROGEN URINE RANDOM(Performed 08/21/2022) * OSMOLALITY URINE(Performed 08/21/2022) * CREATININE URINE RANDOM(Performed 08/21/2022) * SODIUM URINE RANDOM(Performed 08/21/2022) * LYTES (NA K) URINE RANDOM PANEL(Performed 08/21/2022) * EKG 12-LEAD(Performed 08/21/2022) Performed for SOB (shortness of breath) * D-DIMER(Performed 08/21/2022) * TROPONIN I(Performed 08/21/2022) * XR CHEST 1VW PORTABLE(Performed 08/21/2022) Performed for SOB (shortness of breath) * PHOSPHORUS BLOOD(Performed 08/21/2022) * MAGNESIUM BLOOD(Performed 08/21/2022) * PT-INR SLH(Performed 08/21/2022) * BASIC METABOLIC PANEL (CALCIUM TOTAL)(Performed 08/21/2022) * CBC W/O DIFFERENTIAL(Performed 08/21/2022) * PROCALCITONIN LEVEL(Performed 08/20/2022) * TROPONIN I(Performed 08/20/2022) * US RETROPERITONEAL COMPLETE(Performed 08/20/2022) Performed for Hyponatremia * EKG 12-LEAD(Performed 08/20/2022) Performed for QT prolongation * TROPONIN I(Performed 08/20/2022) * XR CHEST 1VW PORTABLE(Performed 08/20/2022) Performed for SOB (shortness of breath) * OSMOLALITY BLOOD(Performed 08/20/2022) * TRIGLYCERIDES BLOOD(Performed 08/20/2022) * TSH REFLEX FREE T4(Performed 08/20/2022) * PHOSPHORUS BLOOD(Performed 08/20/2022) * MAGNESIUM BLOOD(Performed 08/20/2022) * PT-INR SLH(Performed 08/20/2022) * BASIC METABOLIC PANEL (CALCIUM TOTAL)(Performed 08/20/2022) * CBC W/O DIFFERENTIAL(Performed 08/20/2022) * BASIC METABOLIC PANEL (CALCIUM TOTAL)(Performed 08/19/2022) * SODIUM URINE RANDOM(Performed 08/19/2022) * OSMOLALITY URINE(Performed 08/19/2022) * PROTEIN CREATININE RATIO URINE RANDOM PNL(Performed 08/19/2022) * URINALYSIS REFLEX TO MICROSCOPIC NO CULTURE(Performed 08/19/2022) * PROTEIN ELECTROPHORESIS URINE TIMED(Performed 08/19/2022) * IMMUNOFIXATION BLOOD(Performed 08/19/2022) * PROTEIN ELECTROPHORESIS BLOOD(Performed 08/19/2022) * PHOSPHORUS BLOOD(Performed 08/19/2022) * MAGNESIUM BLOOD(Performed 08/19/2022) * PT-INR SLH(Performed 08/19/2022) * BASIC METABOLIC PANEL (CALCIUM TOTAL)(Performed 08/19/2022) * CBC W/O DIFFERENTIAL(Performed 08/19/2022) * TRANSFUSE RED BLOOD CELL LEUKOREDUCED UNIT(S)(Performed 08/18/2022) * PREPARE RBC LEUKOREDUCED UNIT(Performed 08/18/2022) * BLOOD TYPE VERIFICATION(Performed 08/18/2022) * TYPE + SCREEN PANEL(Performed 08/18/2022) * PHOSPHORUS BLOOD(Performed 08/18/2022) * MAGNESIUM BLOOD(Performed 08/18/2022) * PT-INR SLH(Performed 08/18/2022) * BASIC METABOLIC PANEL (CALCIUM TOTAL)(Performed 08/18/2022) * CBC W/O DIFFERENTIAL(Performed 08/18/2022) * PTH INTACT W/O CALCIUM(Performed 08/17/2022) * FERRITIN(Performed 08/17/2022) * CBC W/O DIFFERENTIAL(Performed 08/17/2022) * PT-INR SLH(Performed 08/17/2022) * ALBUMIN BLOOD(Performed 08/17/2022) * PROTEIN TOTAL BLOOD(Performed 08/17/2022) * PHOSPHORUS BLOOD(Performed 08/17/2022) * MAGNESIUM BLOOD(Performed 08/17/2022) * BASIC METABOLIC PANEL (CALCIUM TOTAL)(Performed 08/17/2022) * PT EVAL AND TREAT(Performed 08/16/2022) * OT EVAL AND TREAT(Performed 08/16/2022) * LYTES (NA K) URINE RANDOM PANEL(Performed 08/16/2022) * URINALYSIS W/MICROSCOPIC NO CULTURE(Performed 08/16/2022) * IRON + TRANSFERRIN PANEL(Performed 08/16/2022) * ECHO COMPLETE W BUBBLE STUDY(Performed 08/16/2022) Performed for Hemorrhagic stroke (HCC) * XR CHEST 1VW PORTABLE(Performed 08/16/2022) Performed for Disorder of skin and subcutaneous tissue, Congenital anomaly of integument * PT-INR SLH(Performed 08/16/2022) * BASIC METABOLIC PANEL (CALCIUM TOTAL)(Performed 08/16/2022) * CBC W/O DIFFERENTIAL(Performed 08/16/2022) * PHOSPHORUS BLOOD(Performed 08/16/2022) * MAGNESIUM BLOOD(Performed 08/16/2022) * HEMOGLOBIN A1C(Performed 08/16/2022) * MRI ANGIO BRAIN ARTERIAL WO CONT(Performed 08/15/2022) Performed for Intracranial hemorrhage, nontraumatic (HCC) * MRI BRAIN WWO CONTRAST(Performed 08/15/2022) Performed for Hemorrhagic stroke (HCC) * EKG 12-LEAD(Performed 08/15/2022) Performed for Hypertensive chronic kidney disease with stage 1 through stage 4 chronic kidney disease, or unspecified chronic kidney disease * TROPONIN I(Performed 08/15/2022) * TROPONIN I(Performed 08/15/2022) * TROPONIN I(Performed 08/15/2022) * PT-INR [facility](Performed 08/15/2022) * BASIC METABOLIC PANEL (CALCIUM TOTAL)(Performed 08/15/2022) * CBC W/O DIFFERENTIAL(Performed 08/15/2022) * LIPASE BLOOD(Performed 03/09/2022) * CBC W AUTO DIFFERENTIAL(Performed 03/09/2022) * COMPREHENSIVE METABOLIC PANEL(Performed 03/09/2022) * CULTURE URINE COMPREHENSIVE(Performed 09/29/2021) Performed for Urge incontinence * AK INSERT NON-INDWELLING BLADDER(Performed 09/29/2021) Performed for Urge incontinence * URINALYSIS AUTO - POINT OF CARE (AMB) [facility](Performed 09/29/2021) Performed for Urge incontinence * PATHOLOGY/CYTOLOGY REPORT ORDER(Performed 01/08/2021) * DERMATOPATHOLOGY(Performed 01/08/2021) * XR KNEE LEFT 3VW(Performed 07/30/2020) Performed for Acute pain of left knee * URINALYSIS W/MICROSCOPIC NO CULTURE(Performed 01/04/2020) Performed for CKD (chronic kidney disease) stage 4, GFR 15-29 ml/min ([facility]), Essential hypertension * CBC W AUTO DIFFERENTIAL(Performed 01/04/2020) Performed for CKD (chronic kidney disease) stage 4, GFR 15-29 ml/min ([facility]), Essential hypertension * VITAMIN B12(Performed 01/04/2020) Performed for CKD (chronic kidney disease) stage 4, GFR 15-29 ml/min (HCC), Essential hypertension * TSH(Performed 01/04/2020) Performed for CKD (chronic kidney disease) stage 4, GFR 15-29 ml/min (HCC), Essential hypertension * BASIC METABOLIC PANEL (CALCIUM TOTAL)(Performed 01/04/2020) Performed for CKD (chronic kidney disease) stage 4, GFR 15-29 ml/min (HCC), Essential hypertension * MAGNESIUM BLOOD(Performed 01/04/2020) Performed for Hypertensive chronic kidney disease with stage 1 through stage 4 chronic kidney disease, or unspecified chronic kidney disease * PHOSPHORUS BLOOD(Performed 01/04/2020) Performed for Hypertensive chronic kidney disease with stage 1 through stage 4 chronic kidney disease, or unspecified chronic kidney disease * LAB RESULTS ORDER(Performed 05/18/2019) * LAB RESULTS ORDER(Performed 05/09/2019) * LAB RESULTS ORDER(Performed 08/08/2018) * ECHO 2D ONLY WO COLOR OR DOPPLER(Performed 06/20/2015) * EKG 12-LEAD(Performed 06/11/2015) * CT HEAD WO CONTRAST(Performed 06/28/2014) * RPR W REFLEX CONFIRM(Performed 06/26/2014) * DERMATOPATHOLOGY(Performed 07/04/2013) * BUN(Performed 10/31/1998) * CALCIUM BLOOD(Performed 10/31/1998) * CREATININE BLOOD(Performed 10/31/1998) * HEMOGLOBIN A1C(Performed 10/31/1998) * LIPID PROFILE(Performed 10/31/1998) Results * CARDIAC RHYTHM STRIP ORDER (08/21/2024 4:38 PM CDT) Only the most recent of7 resultswithin the time period is included. Narrative 08/21/2024 4:38 PM CDT Ordered by an unspecified provider. Scanned Document CARDIAC SERVICES ORD ERABLES * IR ANGIO AV SHUNT IMAGING (05/15/2024 11:24 AM CDT) Only the most recent of4 resultswithin the time period is included. Anatomical Region Laterality Modality Lower Extremity, Upper Extremity, Chest X-Ray Angiography Narrative 05/15/2024 11:26 AM CDT Keyshawn Krueger MD ? 05/15/2024 11:29 AM Interventional Radiology Post-Operative/Procedure Progress Notes Date: ??05/15/2024 Surgeon: Keyshawn Krueger MD Receiving Teller: none Pre-Procedure diagnosis: ESRD; prolonged bleeding after access Time out and final pre-procedure assessment completed immediately prior to start of procedure. Medications reviewed. Post-Procedure diagnosis: Same Anesthesia: Local and IV Sedation; 0.5 mg of Versed and 50 mcg of fentanyl Technical Procedure Performed: Limited sonographic evaluation of left arm AV graft followed by ultrasound-guided access. ??The DICOM ultrasound images were documented in PACS. ?? 2. Selective left arm fistulogram 3. Left peripheral venoplasty of greater than 70% venous anastomotic and intra graft stenosis with an 8 mm x 4 cm Conquest balloon Total contrast: ??15 mL of Isovue 300 Total radiation dose: ??1.9 mGy Complications: None Findings: ??Informed consent was obtained. ??A time-out was performed. ??The patient's airway and condition was evaluated immediately prior to sedation and/or analgesia. ?? The patient was placed supine on the angiographic table and her left arm was prepped and draped in the usual sterile manner. ?? Following the administration of subcutaneous lidocaine, the left arm AV graft was accessed antegrade with a micropuncture needle under direct ultrasound guidance. ??The ultrasound images demonstrated a patent anastomosis without any thrombus. ??The needle was exchanged over the wire for a dilator. ??Contrast was injected through the dilator to perform selective left arm fistulogram. ??Sequential DSA of the central venous outflow was performed as well as a reflux fistulogram demonstrating brisk central venous outflow. 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 ?? The transitional dilator was then exchanged over the wire for a short 6 [place] sheath. ??Over the wire, peripheral venoplasty was performed with an 8 mm x 4 cm Conquest balloon. ??A final fistulogram demonstrated excellent response without any extravasation. ?? All of the catheters, wires, and sheath were removed. ??Adequate hemostasis at the puncture site was achieved using manual compression. ??A sterile dressing was applied. Disposition: OPS Status: Stable Drain or Pack: None Additional information/Complications: None Estimated blood loss: negligible Specimen(s) removed: No Specimen Leland Thompson MD IR ORDERABLES * ECHO COMPLETE W CONTRAST (10/05/2023 10:41 AM BUS AIDE) BSA 1.7036042 m2 SSM CV FUJ I PACS LV biplane EF 72 54 - 74 % SSM CV FUJI PACS LV A2C EF 71 52 - 76 % SSM CV FUJ I PACS LV A4C EF 75 46 - 78 % SSM CV FUJ I PACS LV stroke vol BP 58.6 mL SSM CV FUJI PACS LV stroke vol BP index 34.9 mL/m2 SSM CV FUJI PACS LVOT stroke vol 82.58 mL SSM CV FUJI PACS LVOT stroke vol index 49.21 mL/m2 SSM CV FUJI PACS LV stroke vol 2D teich 36.254 ml SSM CV FUJI PACS LV Stroke Index 2D Teich 21.60 mL/m2 SSM CV FUJI PACS LV stroke vol index A4C MOD 64.393 ml/m2 SSM CV FUJI PACS LVIDd 3.54 3.8 - 5.2 cm SSM CV FUJI PACS LVIDs 2.18 2.2 - 3.5 cm SSM CV FUJI PACS IVSd 2D 1.409 0.6 - 0.9 cm SSM CV FUJI PACS LVPWd 1.38 0.6 - 0.9 cm SSM CV FUJI PACS Fractional Shortening 2D 38 28 - 44 % SSM CV FUJI PACS LV ESV BP 23.006 14 - 42 mL SSM CV FUJI PACS LV ESV index BP 13.7 8 - 24 mL/m2 SSM CV FUJI PACS LV ESV A2C 21.773 10 - 54 mL SSM CV FUJI PACS LV ESV index A2C 12.98 6 - 30 mL/m2 SSM CV FUJI PACS LV EDV BP 81.628 46 - 106 mL SSM CV FUJI PACS LV ESV A4C 22.445 12 - 60 mL SSM CV FUJI PACS LV ESV index A4C 13.38 7 - 35 mL/m2 SSM CV FUJI PACS LV EDV index BP 48.6 29 - 61 mL/m2 SSM CV FUJI PACS LV EDV A2C 76.813 41 - 133 mL SSM CV FUJI PACS LV EDV index A2C 45.78 26 - 74 mL/m2 SSM CV FUJI PACS LV EDV A4C 86.166 mL SSM CV FU JI PACS LV ESV 2D 15.863 14 - 42 mL SSM CV FUJI PACS LV EDV index A4C 51.35 30 - 82 mL/m2 SSM CV FUJI PACS LV ESV index 2D 9.45 8 - 24 mL/m2 SSM CV FUJI PACS LV EDV 2D 52.118 46 - 106 mL SSM CV FUJI PACS LV EDV index 2D 31.06 29 - 61 mL/m2 SSM CV FUJI PACS LVOT diam 2.0 cm SSM CV FUJ I PACS LVOT area 3.23 cm2 SSM CV FUJ I PACS LV RWT 0.781 SSM CV FUJ I PACS LV Reich A2C 8.441 cm SSM CV F UJI PACS LV Reich A4C 8.316 cm SSM CV F UJI PACS IVS/LVPW 1.021 SSM CV FUJ I PACS LV mass 2D 225.4898 66 - 150 g SSM CV FUJI PACS LV mass index 2D 134.38 44 - 88 g/m2 SSM CV FUJI PACS MV E pk carlton 92.15 cm/s SSM CV F UJI PACS MV avg E/e' ratio 16.45 SS M CV FUJI PACS MV A pk carlton 108.135 cm/s SSM CV F UJI PACS MV E A ratio 0.85 SSM CV FUJI PACS MV E' lateral carlton 6.587 cm/s SS M CV FUJI PACS MV DT 315 ms SSM CV FUJ I PACS MV E' septal carlton 4.872 cm/s SSM CV FUJI PACS MV A duration 147 ms SSM CV FUJI PACS MV E/e' septal 18.914 SSM C V FUJI PACS MV E/e' lateral 13.99 SSM CV FUJI PACS LA vol BP 57.348 mL SSM CV FUJ I PACS TR pk carlton 258.7 cm/s SSM CV FUJ I PACS P vein A carlton 29.0 cm/s SSM CV FUJI PACS P vein A duration 146 msec SS M CV FUJI PACS P vein S/D ratio 1.86 SSM CV FUJI PACS LVOT pk carlton 1.17 m/s SSM CV F UJI PACS LVOT mn carlton 0.87 m/s SSM CV F UJI PACS LVOT mn grad 3.2 mmHg SSM CV FUJI PACS LVOT Cardiac Output 5.187 l/min SSM CV FUJI PACS LVOT Cardiac Index 3.09 l/min/m2 SSM CV FUJI PACS LA vol index 34.2 16 - 34 mL/m2 SSM CV FUJI PACS LA size 3.365 2.7 - 3.8 cm SSM CV FUJI PACS LA vol BP A-L 61.153 mL SSM CV FUJI PACS RV-reich basal diam 2.9 2.5 - 4.1 cm SSM CV FUJI PACS RV-reich longitudinal diam 6.9 5.9 - 8.3 cm SSM CV FUJI PACS RVIDd 2.6 cm SSM CV FUJ I PACS RVOT VTI 19.273 cm SSM CV FUJ I PACS TV S' carlton 13.315 cm/s SSM CV FUJ I PACS TAPSE 2.377 1.7 cm SSM CV FUJ I PACS RVOT pk carlton 0.84 m/s SSM CV F UJI PACS RA area 14.437 cm2 SSM CV FUJ I PACS AV mn grad 6 mmHg SSM CV FU JI PACS AV pk grad 10 mmHg SSM CV FU JI PACS AV mn carlton 1.18 m/s SSM CV FUJ I PACS AV pk carlton 1.62 m/s SSM CV FUJ I PACS AV VTI 35 cm SSM CV FUJ I PACS LVOT pk grad 5.431 mmHg SSM CV FUJI PACS LVOT VTI 25.533 cm SSM CV FUJ I PACS AV area cont VTI 2.4 cm2 SSM CV FUJI PACS AV area pk carlton 2.3 cm2 SSM C V FUJI PACS AV Doppler carlton index pk carlton 0.72 SSM CV FUJI PACS Dimensionless Index 0.73 SSM CV FUJI PACS MV mn grad 2 mmHg SSM CV FU JI PACS MV pk grad 6 mmHg SSM CV FU JI PACS MV mn carlton 0.65 m/s SSM CV FUJ I PACS MV pk carlton 126.125 cm/s SSM CV FUJ I PACS MV PHT 104 ms SSM CV FUJ I PACS MV area PHT 2.11 cm2 SSM CV F UJI PACS MV area cont eq 2.37 cm2 SSM CV FUJI PACS MV VTI 34.849 cm SSM CV FUJ I PACS MV decel slope 292.691 cm/s2 SSM C V FUJI PACS TR VTI 76.1 cm SSM CV FUJ I PACS TR pk grad 27 mmHg SSM CV FU JI PACS TV area PHT 3.20 cm2 SSM CV F UJI PACS TV PHT 69 ms SSM CV FUJ I PACS TV DT 0.237 ms SSM CV FUJ I PACS RVOT mn grad 2 mmHg SSM CV FUJI PACS RVOT pk grad 3 mmHg SSM CV FUJI PACS PV mn grad 2 mmHg SSM CV FU JI PACS PV pk carlton 93.259 cm/s SSM CV FUJ I PACS PV pk grad 3 mmHg SSM CV FU JI PACS PV VTI 21.764 cm SSM CV FUJ I PACS PV mn carlton 66.882 cm/s SSM CV FUJ I PACS Ascending aorta 2.89 cm SSM CV FUJI PACS IVC size 1.4 cm SSM CV FUJ I PACS LA ESV A4C MOD Index 36 ml/m2 SSM CV FUJI PACS LA ESV A2C MOD Index 32 ml/m2 SSM CV FUJI PACS [id number] 6.504 cm SSM CV FUJ I PACS [id number] 7.107 cm SSM CV FUJ I PACS Prox Asc Ao Diameter Index 1.72 cm SSM CV FUJI PACS LVIDs index 1.30 1.3 - 2.1 cm/m2 SSM CV FUJI PACS LV LVIDd index 2.11 2.3 - 3.1 cm/m2 SSM CV FUJI PACS Sinus of Valsalva 2.90 cm SS M CV FUJI PACS ST junction 2.4 cm SSM CV F UJI PACS Sinus of valsalva index 1.73 cm/m2 SSM CV FUJI PACS ST junction index 1.43 cm/m2 SS M CV FUJI PACS Anatomical Region Laterality Modality Ultrasound Narrative 10/05/2023 11:06 AM BUS AIDE ?Left??Ventricle: Left ventricle size is normal. Mildly increased wall thickness. Mildly increased ventricular mass. Findings consistent with mild concentric hypertrophy. Hyperdynamic systolic function. EF by 2D Daniel biplane is 72%. Normal wall motion. Grade II diastolic dysfunction with elevated left atrial pressure. ?Left??Atrium: Left atrium is mildly dilated. Left Ventricle Left ventricle size is normal. Mildly increased wall thickness. Mildly increased ventricular mass. Findings consistent with mild concentric hypertrophy. Hyperdynamic systolic function. EF by 2D Daniel biplane is 72%. Normal wall motion. Grade II diastolic dysfunction with elevated left atrial pressure. Right Ventricle Right ventricle size is normal. Normal systolic function. Left Atrium Left atrium is mildly dilated. Right Atrium Right atrium size is normal. IVC/SVC IVC diameter is less than or equal to 21 mm and decreases greater than 50% during inspiration; therefore the estimated right atrial pressure is normal (~3 mmHg). Mitral Valve Mild mitral annular calcification. Mild regurgitation. No stenosis. Tricuspid Valve Valve structure is normal. Mild regurgitation. The pulmonary artery systolic pressure is normal (under 35 mmHg). No stenosis. Aortic Valve Valve structure is trileaflet. Mild regurgitation. No stenosis. Pulmonic Valve Valve structure is normal. No regurgitation. No stenosis. Ascending Aorta Normal sized sinus of Valsalva (aortic root). Pericardium No pericardial effusion. Study Details Study quality was good. A complete 2D, color Doppler, spectral Doppler and M- mode echocardiogram was performed. The apical, parasternal and subcostal views were obtained. Lumason ultrasound enhancing agent used. Patient exhibited sinus rhythm. Jenaro Marshall MD ECHO CUPID * (ABNORMAL) CALCIUM IONIZED WHOLE BLOOD (10/05/2023 6:07 AM BUS AIDE) Only the most recent of2 resultswithin the time period is included. Calcium Ionized 1.28 mmol/L 10/05/2023 6:16 AM [facility] pH 7.50(H) 7.35 - 7.45 pH 10/05/2023 6:16 AM [facility] Ionized Calcium pH Adjusted 1.33 1.19 - 1.34 mmol/L 10/05/2023 6:16 AM [facility] Blood BLOOD SPECIMEN / Unknown Lab Venipuncture / Unknown 10/05/2023 6:07 AM BUS AIDE 10/05/2023 6:12 AM BUS AIDE Rogelio Benitez MD LAB - CHEMISTRY PATRICIA CASIANO [facility] Organization Address City/State/ZIP Co de Phone Number [facility] [address] [place] [address], [facility] [phone] * (ABNORMAL) CBC W AUTO DIFFERENTIAL (10/05/2023 6:07 AM BUS AIDE) Only the most recent of9 resultswithin the time period is included. WBC 6.2 3.5 - 10.5 10? 3 /uL 10/05/2023 6:29 AM [facility] RBC 2.88(L) 3.80 - 5.20 10? 6 /uL 10/05/2023 6:29 AM [facility] Hemoglobin 8.4(L) 12.0 - 15.6 g/dL 10/05/2023 6:29 AM [facility] Hematocrit 26.8(L) 35.0 - 45.0 % 10/05/2023 6:29 AM [facility] MCV 93.1 80.7 - 98.3 fL 10/05/2023 6:29 AM [facility] MCH 29.2 26.7 - 34.0 pg 10/05/2023 6:29 AM [facility] MCHC 31.3 30.8 - 35.9 g/dL 10/05/2023 6:29 AM [facility] RDW-SD 50.0 36.0 - 50.0 fL 10/05/2023 6:29 AM [facility] RDW-CV 14.7 11.2 - 14.8 % 10/05/2023 6:29 AM [facility] Platelet Count 225 150 - 400 10? 3 /uL 10/05/2023 6:29 AM [facility] MPV 8.7(L) 9.4 - 12.9 fL 10/05/2023 6:29 AM [facility] nRBC Absolute 0.00 0 10? 3 /uL 10/05/2023 6:29 AM [facility] nRBC Auto 0.0 0 /100 WBC 10/05/2023 6:29 AM [facility] Neutrophils % 51.0 35.0 - 70.0 % 10/05/2023 6:29 AM [facility] Lymphocytes % 29.6 20.0 - 43.0 % 10/05/2023 6:29 AM [facility] Monocytes % 15.9(H) 5.0 - 13.0 % 10/05/2023 6:29 AM [facility] Eosinophils % 1.9 0.0 - 6.0 % 10/05/2023 6:29 AM [facility] Basophil % 0.8 0.0 - 2.0 % 10/05/2023 6:29 AM [facility] Neutrophils Absolute 3.17 1.60 - 7.00 10? 3 /uL 10/05/2023 6:29 AM [facility] Lymphocyte Absolute 1.84 1.10 - 3.90 10? 3 /uL 10/05/2023 6:29 AM [facility] Monocytes Absolute 0.99 0.26 - 1.07 10? 3 /uL 10/05/2023 6:29 AM [facility] Eosinophils Absolute 0.12 0.00 - 0.47 10? 3 /uL 10/05/2023 6:29 AM [facility] Basophils Absolute 0.05 0.00 - 0.08 10? 3 /uL 10/05/2023 6:29 AM [facility] Immature Granulocytes % 0.8 0.0 - 1.0 % 10/05/2023 6:29 AM [facility] Immature Granulocytes Absolute 0.05 10/05/2023 6:29 AM [facility] Blood BLOOD SPECIMEN / Unknown Lab Venipuncture / Unknown 10/05/2023 6:07 AM [facility] 10/05/2023 6:16 AM [facility] Jenaro Marshall MD LAB - HEMATOLOGY ORD ERABLES [facility] [address] [place] [address], [facility] [phone] * (ABNORMAL) COMPREHENSIVE METABOLIC PANEL (10/05/2023 6:07 AM [facility]) Only the most recent of8 resultswithin the time period is included. BUN 20 7 - 26 mg/dL 10/05/2023 6:54 AM [facility] Creatinine 2.99(H) 0.56 - 0.96 mg/dL 10/05/2023 6:54 AM [facility] Sodium 139 136 - 145 mmol/L 10/05/2023 6:54 AM [facility] Potassium 3.6 3.5 - 4.5 mmol/L 10/05/2023 6:54 AM [facility] Chloride 98 98 - 107 mmol/L 10/05/2023 6:54 AM [facility] CO2 32(H) 22 - 29 mmol/L 10/05/2023 6:54 AM [facility] Glucose 93 70 - 115 mg/dL 10/05/2023 6:54 AM [facility] Calcium 9.4 8.4 - 10.2 mg/dL 10/05/2023 6:54 AM [facility] Protein Total 5.4(L) 6.0 - 8.3 g/dL 10/05/2023 6:54 AM [facility] Albumin 2.6(L) 3.4 - 5.0 g/dL 10/05/2023 6:54 AM [facility] Bilirubin Total 0.5 0.2 - 1.2 mg/dL 10/05/2023 6:54 AM [facility] Alkaline Phosphatase 127 40 - 150 U/L 10/05/2023 6:54 AM [facility] ALT 14 5 - 55 U/L 10/05/2023 6:54 AM [facility] AST 16 5 - 34 U/L 10/05/2023 6:54 AM [facility] Anion Gap 9 6 - 16 10/05/2023 6:54 AM [facility] BUN/Creatinine Ratio 7 7 - 23 10/05/2023 6:54 AM [facility] Osmolality Calculated 290 275 - 295 mOsm/kg 10/05/2023 6:54 AM [facility] Albumin/Globulin Ratio 0.9(L) 1.1 - 2.3 10/05/2023 6:54 AM [facility] eGFR by CKD-EPI 15(L) >=90 mL/min/1.7 3 m2 10/05/2023 6:54 AM [facility] Blood BLOOD SPECIMEN / Unknown Lab Venipuncture / Unknown 10/05/2023 6:07 AM BUS AIDE 10/05/2023 6:34 AM [facility] Jenaro Marshall MD LAB - CHEMISTRY PATRICIA CASIANO [facility] Organization Address City/State/[facility] Co de Phone Number [facility] [address] [place] [address], [facility] [phone] * PHOSPHORUS BLOOD (10/05/2023 6:07 AM BUS AIDE) Only the most recent of13 resultswithin the time period is included. Phosphorus 3.1 2.9 - 5.1 mg/dL 10/05/2023 6:48 AM BUS AIDE [facility] Blood BLOOD SPECIMEN / Unknown Lab Venipuncture / Unknown 10/05/2023 6:07 AM BUS AIDE 10/05/2023 6:34 AM BUS AIDE Jenaro Marshall MD LAB - CHEMISTRY PATRICIA CASIANO [address] [address], [facility] [phone] * MAGNESIUM BLOOD (10/05/2023 6:07 AM BUS AIDE) Only the most recent of25 resultswithin the time period is included. Magnesium 1.8 1.6 - 2.6 mg/dL 10/05/2023 6:48 AM BUS AIDE [facility] Blood BLOOD SPECIMEN / Unknown Lab Venipuncture / Unknown 10/05/2023 6:07 AM BUS AIDE 10/05/2023 6:34 AM BUS AIDE Jenaro Marshall MD LAB - CHEMISTRY PATRICIA CASIANO [address] [address], [facility] [phone] * (ABNORMAL) PTH INTACT W/O CALCIUM (10/04/2023 4:57 AM BUS AIDE) Only the most recent of2 resultswithin the time period is included. PTH Intact 162.0(H) 8.0 - 77.0 pg/mL 10/04/2023 6:22 AM BUS AIDE [facility] Blood BLOOD SPECIMEN / Unknown Lab Venipuncture / Unknown 10/04/2023 4:57 AM BUS AIDE 10/04/2023 5:45 AM BUS AIDE Rogelio Benitez MD LAB - CHEMISTRY PATRICIA CASIANO Performing Organization Address City/[facility]/ZIP Co de Phone Number [facility] [address] [place] [address], [facility] [phone] * VITAMIN D 25-HYDROXY (10/04/2023 4:57 AM BUS AIDE) [facility] Vitamin D, 25 Hydroxy 30.7 30.0 - 80.0 ng/mL 10/04/2023 6:38 AM BUS AIDE [facility] Comment: The recommendations for 25-Hydroxy Vitamin D clinical decision points are as follows: ? Deficient: ? <20.0 ng/mL ? Insufficient: ? 20.0 - 29.9 ng/mL ? Sufficient: ? 30.0 - 100.0 ng/mL ? Potential Toxicity: ??>100 ng/mL Reference: The Endocrine Society Clinical Practice Guidelines. 2011 If the 25-Hydroxy Vitamin D results are inconsitent with clinical evidence, it is recommended that follow-up testing using a method such as LC/MS/MS be performed to confirm the result. ? Blood BLOOD SPECIMEN / Unknown Lab Venipuncture / Unknown 10/04/2023 4:57 AM BUS AIDE 10/04/2023 5:50 AM BUS AIDE Rogelio Benitez MD LAB - CHEMISTRY PATRICIA CASIANO Performing Organization Address [facility]/ZIP Co de Phone Number [facility] [address] [place] [address], [place] [phone] * CARDIAC EKG ORDER (10/03/2023 2:21 PM BUS AIDE) Only the most recent of2 resultswithin the time period is included. Narrative 10/03/2023 2:21 PM BUS AIDE Ordered by an unspecified provider. Scanned Document CARDIAC SERVICES ORD ERABLES * XR CHEST 1VW PORTABLE (10/02/2023 6:36 PM BUS AIDE) Only the most recent of10 resultswithin the time period is included. Anatomical Region Laterality Modality Chest Radiographic Marychuy ging 10/03/2023 7:34 AM BUS AIDE Impressions 10/03/2023 11:39 AM BUS AIDE IMPRESSION: Mild left base atelectasis. Report dictated by Ranjith Valdez MD, MD (regional vice president surgical sales). I, Debby James MD have personally reviewed and interpreted this examination/study. > Interpreting Provider: Debby James MD on 10/03/2023 11:39 AM Narrative 10/03/2023 11:39 AM BUS AIDE PROCEDURE: ??XR CHEST 1VW PORTABLE, DATE/TIME OF EXAM: ??10/02/2023 6:36 PM, LOCATION ??[facility] INDICATION: I16.1: Hypertensive emergency ADDITIONAL CLINICAL INFORMATION: Ordering Provider Reason For Exam: ??evidence of aspiration? COMPARISON: CT chest abdomen pelvis 09/29/2023, x-ray chest 09/03/2022. TECHNIQUE: Frontal radiograph of the chest. FINDINGS: Masslike opacity within the medial right upper lobe is due to tortuous great vessels as seen on CT done 09/29/2023. There is mild elevation of the left diaphragm and mild adjacent atelectasis. There is no pleural effusion or pneumothorax. The cardiac silhouette is normal. There is atherosclerotic calcification of the aorta. The visible bony thorax is intact. Procedure Note Debby James MD - 10/03/2023 PROCEDURE: XR CHEST 1VW PORTABLE, DATE/TIME OF EXAM: 10/02/2023 6:36PM, LOCATION [facility] INDICATION: I16.1: Hypertensive emergency ADDITIONAL CLINICAL INFORMATION: Ordering Provider Reason For Exam: evidence of aspiration? COMPARISON: CT chest abdomen pelvis 09/29/2023, x-ray chest 09/03/2022. TECHNIQUE: Frontal radiograph of the chest. FINDINGS: Masslike opacity within the medial right upper lobe is due to tortuous great vessels as seen on CT done 09/29/2023. There is mild elevation ofthe left diaphragm and mild adjacent atelectasis. There is no pleuraleffusion or pneumothorax. The cardiac silhouette is normal. There isatherosclerotic calcification of the aorta. The visible bony thorax is intact. IMPRESSION: Mild left base atelectasis. Report dictated by Ranjith Valdez MD, MD (regional vice president surgical sales). I, Debby James MD have personally reviewed and interpreted this examination/study. > Interpreting Provider: Debby James MD on 10/03/2023 11:39 AM Rogelio Benitez MD DIAGNOSTIC IMAGING O RDERABLES * SARS-COV-2 (COVID-19)+INFLU A+B PCR RAPID (09/30/2023 9:48 AM BUS AIDE) COVID-19 PCR Not detected Not detected 09/30/20 10:34 AM [facility] Influenza A Rapid ANGELA Not Detected Not Detected 09/30/2023 10:34 AM [facility] Influenza B ANGELA Rapid Not Detected Not Detected 09/30/2023 10:34 AM [facility] Microbiology SPECIMEN FROM NASOPHARYNGEAL STRUCTURE / Unknown Collection / Unknown 09/30/2023 9:48 AM BUS AIDE 09/30/2023 9:52 AM BUS AIDE [facility] - 09/30/2023 10:34 AM BUS AIDE Influenza assay performed by Nucleic Acid Amplification. Results do not exclude the possibility of a mixed viral infection. NOTE: ??Detecting and identifying specific viral nucleic acids from individuals exhibiting signs and symptoms of respiratory infection aids in the diagnosis of respiratory infection, if used in conjunction with other clinical and laboratory findings. The results of this test should not be used as the sole basis for diagnosis, treatment, or patient management decisions. This nucleic acid amplification assay performance was validated by [facility]. This test has been authorized by the Food and Drug administration (FDA)under an Emergency??Use Authorization (EUA). This test has been validated in accordance with the FDA's guidance document Policy for Diagnostic Testing in Laboratories Certified to perform High Complexity Testing under CLIA prior to Emergency Use Authorization for Coronavirus Disease-2019 during the Public Health Emergency issued on December 29, 2019. FDA independent review of this validation is pending. This test is only authorized for the duration of time the declaration that circumstances exist justifying the authorization of emergency use of in vitro diagnostic tests for detection of SARS-CoV-2 virus and/or diagnosis of COVID-19 infection under section 564(b)(1) of the Act, 21 U.S.C 360bbb-3 (b)(1), unless the authorization is terminated or revoked sooner. Fact Sheets for this EUA assay are available upon request. Luis Eduardo Tristan MD LAB - MICROBIOLOGY O SARIKA Performing Organization Address [facility]/ZIP Co de Phone Number [facility] [address] [place] [address], [facility] [phone] * HEPATITIS B SURFACE ANTIGEN W RFLX CONFIRMATION (09/30/2023 5:41 AM BUS AIDE) Only the most recent of2 resultswithin the time period is included. Hepatitis B Virus Surface Antigen Non-reacti ve Non-reacti ve 09/30/2023 12:28 PM BUS AIDE [facility] Blood BLOOD SPECIMEN / Unknown Venipuncture / Unknown 09/30/2023 5:41 AM BUS AIDE 09/30/2023 5:49 AM BUS AIDE Howard Weston MD LAB - CHEMISTRY PATRICIA CASIANO Performing Organization Address [facility]/ZIP Co de Phone Number [facility] [address] [place] [phone], [facility] [phone] * (ABNORMAL) IRON + TRANSFERRIN PANEL (09/30/2023 5:41 AM BUS AIDE) Only the most recent of2 resultswithin the time period is included. Iron 77 40 - 150 ug/dL 09/30/2023 7:34 AM BUS AIDE [facility] Transferrin 128(L) 174 - 382 mg/dL 09/30/2023 7:34 AM [facility] Transferrin Saturation % 48 16 - 50 % 09/30/2023 7:34 AM [facility] TIBC Calculated 160(L) 240 - 450 ug/dL 09/30/2023 7:34 AM [facility] Blood BLOOD SPECIMEN / Unknown Venipuncture / Unknown 09/30/2023 5:41 AM BUS AIDE 09/30/2023 5:49 AM BUS AIDE Jenaro Marshall MD LAB - CHEMISTRY PATRICIA CASIANO [facility] [address] [place] [address], [place] [phone] * (ABNORMAL) FERRITIN (09/30/2023 5:41 AM BUS AIDE) Only the most recent of2 resultswithin the time period is included. Ferritin 2,026(H) 13 - 204 ng/mL 09/30/2023 8:25 AM BUS AIDE [facility] Comment:Result obtained by vasyl eugene. Blood BLOOD SPECIMEN / Unknown Venipuncture / Unknown 09/30/2023 5:41 AM BUS AIDE 09/30/2023 5:49 AM BUS AIDE Jenaro Marshall MD LAB - CHEMISTRY PATRICIA CASIANO Performing Organization Address City/[facility]/ZIP Co de Phone Number [address] [address], [place] [phone] * (ABNORMAL) TROPONIN-I HIGH SENSITIVE REFLEX 1HOUR (09/29/2023 6:24 PM BUS AIDE) Troponin I High Sensitive 23(H) <=14 ng/L 09/29/2023 7:11 PM BUS AIDE [facility] Delta Troponin I HS <0 <6 ng/L 09/29/2023 7:11 PM BUS AIDE [facility] Blood BLOOD SPECIMEN / Unknown Venipuncture / Unknown 09/29/2023 6:24 PM BUS AIDE 09/29/2023 6:32 PM BUS AIDE Alexis Atkins MD LAB - CHEMISTRY PATRICIA CASIANO [address] [address], [place] [phone] * EKG 12-LEAD (09/29/2023 5:23 PM BUS AIDE) Only the most recent of6 resultswithin the time period is included. Ventricular Rate 72 BPM [facility] MUSE Atrial Rate 72 BPM [facility] MUSE P-R Interval 182 ms [facility] MUSE QRS Duration ms 84 ms [facility] MUSE Q-T Interval ms 424 ms [facility] MUSE QTC Calculation (Bezet) 464 ms [facility] MUSE Calculated P Hector 53 degrees [facility] MUSE Calculated R Hector 16 degrees [facility] MUSE Calculated T Hector 44 degrees [facility] MUSE Interpretation EKG NORMAL SINUS RHYTHM NONSPECIFIC ST ABNORMALITY ABNORMAL ECG WHEN COMPARED WITH ECG OF 21-AUG-2022 19:22, PREMATURE ATRIAL COMPLEXES ARE NO LONGER PRESENT [place] INTERVAL HAS DECREASED Confirmed by ARIAS ??JAMIE LAWRENCE (1955) on 10/01/2023 7:29:35 PM [facility] MUSE 09/29/2023 5:23 PM BUS AIDE 10/01/2023 7:29 PM BUS AIDE Alexis Atkins MD ECG ORDERABLES [facility] MUSE * (ABNORMAL) TEG 6 GLOBAL HEMOSTASIS W/ LYSIS (09/29/2023 5:19 PM BUS AIDE) Citrated Kaolin R (Reaction Time) 3.2(L) 4.6 - 9.1 min 09/29/2023 6:32 PM [facility] Comment:CK R result below no rmal range. Consistent with hypercoagulable clotting factors. Citrated Kaolin LY30 (Lysis) 0.8 0.0 - 2.6 % 09/29/2023 6:32 PM [facility] Citrated Functional Fibrinogen MA (Max Amplitude) 35.0(H) 15.0 - 32.0 mm 09/29/2023 6:32 PM [facility] Comment:CFF MA above normal range. Consistent with elevated fibrinogen contribution to clot strength. Citrated RapidTEG MA (Max Amplitude) 68.1 52.0 - 70.0 mm 09/29/2023 6:32 PM [facility] Blood BLOOD SPECIMEN / Unknown Venipuncture / Unknown 09/29/2023 5:19 PM BUS AIDE 09/29/2023 5:31 PM BUS AIDE Alexis Atkins MD LAB - HEMATOLOGY ORD ERABLES [facility] [address] [place] [address], [facility] [phone] * (ABNORMAL) TEG 6S PLATELET MAPPING (09/29/2023 5:19 PM BUS AIDE) TEGPLM (Max Amplitude) Koalin 67.0 53.0 - 68.0 mm 09/29/2023 6:39 PM [facility] TEGPLM (Max Amplitude) ACTF 21.9(H) 2.0 - 19.0 mm 09/29/2023 6:39 PM [facility] TEGPLM (Max Amplitude) ADP 63.0 45.0 - 69.0 mm 09/29/2023 6:39 PM [facility] TEGPLM (Max Amplitude) AA 62.6 51.0 - 71.0 mm 09/29/2023 6:39 PM [facility] TEGPLM %Inhibition ADP 8.9 0.0 - 17.0 % 09/29/2023 6:39 PM [facility] TEGPLM %Inhibition AA 9.8 0.0 - 11.0 % 09/29/2023 6:39 PM [facility] TEGPLM %Aggregation ADP 91.1 83.0 - 100.0 % 09/29/2023 6:39 PM [facility] TEGPLM % Aggregation AA 90.2 89.0 - 100.0 % 09/29/2023 6:39 PM [facility] Blood BLOOD SPECIMEN / Unknown Venipuncture / Unknown 09/29/2023 5:19 PM BUS AIDE 09/29/2023 5:31 PM BUS AIDE Alexis Atkins MD LAB - HEMATOLOGY ORD ERABLES [facility] [address] [place] [address], [facility] [phone] * PT-INR [facility] (09/29/2023 5:19 PM BUS AIDE) Only the most recent of14 resultswithin the time period is included. PT 12.2 12.1 - 14.8 Seconds 09/29/2023 5:52 PM BUS AIDE [facility] INR 0.9 See Comment 09/29/2023 5:52 PM BUS AIDE [facility] Comment:The suggested therap eutic range for standard coumadin (warfarin) therapy is an INR of 2.0-3.0. For high-risk patients (Mechanical Mitral Valve Prosthesis, etc.), the suggested prophylactic therapeutic range is an INR of 2.5-3.5. Blood BLOOD SPECIMEN / Unknown Venipuncture / Unknown 09/29/2023 5:19 PM BUS AIDE 09/29/2023 5:28 PM BUS AIDE Alexis Atkins MD LAB - COAGULATION OR DERABLES Performing Organization Address [facility]/ZIP Co de Phone Number [address] [address], [facility] [phone] * (ABNORMAL) TROPONIN-I HIGH SENSITIVE BASELINE + 1HR (09/29/2023 5:19 PM BUS AIDE) Pathologist [facility] Troponin I High Sensitive 26(H) <=14 ng/L 09/29/2023 6:01 PM BUS AIDE [facility] Blood BLOOD SPECIMEN / Unknown Venipuncture / Unknown 09/29/2023 5:19 PM BUS AIDE 09/29/2023 5:28 PM BUS AIDE Alexis Atkins MD LAB - CHEMISTRY ORDE RABLES Performing Organization Address [facility]/ZIP Co de Phone Number [address] [address], [facility] [phone] * CT CHEST ABDOMEN PELVIS W CONT (09/29/2023 5:03 PM BUS AIDE) Anatomical Region Laterality Modality Chest, Abdomen, Pelvis Computed Tomography 09/29/2023 4:52 PM BUS AIDE Impressions 09/29/2023 7:37 PM BUS AIDE Impression: 1.New age-indeterminate fractures of the right second, third, fourth anterior ribs, favored to be acute/subacute. Correlation with point tenderness. 2.Otherwise no evidence of osseous or visceral injury in the chest, abdomen or pelvis. > Dictated by Heath Wu MD, (regional vice president surgical sales). I, Juwan Aceves have personally reviewed and interpreted this examination/study. > Interpreting Provider: Juwan Aceves on 09/29/2023 7:37 PM Narrative 09/29/2023 7:37 PM BUS AIDE PROCEDURE: ??CT CHEST ABDOMEN PELVIS W CONT, DATE/TIME OF EXAM: ??09/29/2023 5:04 PM, LOCATION ??[facility] INDICATION: W19.XXXA: Fall, initial encounter ADDITIONAL CLINICAL INFORMATION: Ordering Provider Reason For Exam: ??fall, right sided rib pain Technologist Note: Additional: COMPARISON: CT chest without contrast 09/01/2022 TECHNIQUE: CT of the chest, abdomen, and pelvis was performed after the uneventful administration of 100 mL of Isovue 370 intravenous contrast according to standard protocol. Findings: Chest: Lower Neck and Axillae: Multiple hypoattenuating nodules are seen in the thyroid gland. Lungs: Bilateral right greater than left dependent atelectasis No suspicious pulmonary nodules are identified. No pleural fluid or pneumothorax is present. Heart and Pericardium: The cardiac chambers are normal in size. No pericardial fluid or thickening is present. The coronary arteries are severely atherosclerotic. Mediastinum and Heidi: No mediastinal hemorrhage is present. No enlarged lymph nodes are present. Thoracic Vasculature: The aorta and its branch vessels are atherosclerotic. Abdomen/pelvis: Liver: Normal. Gallbladder and Bile Ducts: The gallbladder is surgically absent. There is mild intrahepatic biliary dilation. There is prominence of the common bile duct without dilation. This could represent postsurgical changes. Spleen: Normal. Pancreas: Normal. Adrenals: Right adrenal gland is normal. Nodular morphology of the left adrenal gland without a discrete lesion Kidneys: Bilateral kidneys are atrophic. There is no nephrolithiasis or hydronephrosis. Gastrointestinal: The stomach and visualized loops of small bowel are unremarkable. Colonic diverticulosis without evidence of diverticulitis is seen. The appendix is not seen; however, no inflammatory changes are seen in the right lower quadrant. Mesentery/Peritoneum/Retroperitoneum: No free intraperitoneal air. No free fluid in the abdomen or pelvis. Bladder: Normal. Reproductive Organs: Reproductive changes organs are not well visualized secondary to streak artifact from left hip arthroplasty. Abdominal Vasculature: Extensive atherosclerotic calcification of the aorta and its branch vessels. Bones: New age-indeterminate fractures of the right second, third, fourth anterior ribs. Chronic deformity of the right scapula. Degenerative changes in the shoulders right greater than left. Left hip arthroplasty. Soft tissues: Soft tissue defect seen in the right anterior abdominal wall, could be secondary to prior injury. Procedure Note Juwan Aceves MD - 09/29/2023 PROCEDURE: CT CHEST ABDOMEN PELVIS W CONT, DATE/TIME OF EXAM:09/29/2023 5:04 PM, LOCATION [facility] INDICATION: W19.XXXA: Fall, initial encounter ADDITIONAL CLINICAL INFORMATION: Ordering Provider Reason For Exam: fall, right sided rib pain Technologist Note: Additional: COMPARISON: CT chest without contrast 09/01/2022 TECHNIQUE: CT of the chest, abdomen, and pelvis was performed after the uneventful administration of 100 mL of Isovue 370 intravenous contrast according to standard protocol. Findings: Chest: Lower Neck and Axillae: Multiple hypoattenuating nodules are seen in the thyroid gland. Lungs: Bilateral right greater than left dependent atelectasis No suspicious pulmonary nodules are identified. No pleural fluid or pneumothorax is present. Heart and Pericardium: The cardiac chambers are normal in size. No pericardial fluid orthickening is present. The coronary arteries are severely atherosclerotic. Mediastinum and Heidi: No mediastinal hemorrhage is present. No enlarged lymph nodes arepresent. Thoracic Vasculature: The aorta and its branch vessels are atherosclerotic. Abdomen/pelvis: Liver: Normal. Gallbladder and Bile Ducts: The gallbladder is surgically absent. There is mild intrahepatic biliary dilation. There is prominence of the common bile duct without dilation. This could represent postsurgical changes. Spleen: Normal. Pancreas: Normal. Adrenals: Right adrenal gland is normal. Nodular morphology of the left adrenalgland without a discrete lesion Kidneys: Bilateral kidneys are atrophic. There is no nephrolithiasis or hydronephrosis. Gastrointestinal: The stomach and visualized loops of small bowel are unremarkable.Colonic diverticulosis without evidence of diverticulitis is seen. The appendixis not seen; however, no inflammatory changes are seen in the right lower quadrant. Mesentery/Peritoneum/Retroperitoneum: No free intraperitoneal air. No free fluid in the abdomen or pelvis. Bladder: Normal. Reproductive Organs: Reproductive changes organs are not well visualized secondary to streak artifact from left hip arthroplasty. Abdominal Vasculature: Extensive atherosclerotic calcification of the aorta and its branch vessels. Bones: New age-indeterminate fractures of the right second, third, fourthanterior ribs. Chronic deformity of the right scapula. Degenerative changes inthe shoulders right greater than left. Left hip arthroplasty. Soft tissues: Soft tissue defect seen in the right anterior abdominal wall, could be secondary to prior injury. Impression: 1.New age-indeterminate fractures of the right second, third, fourth anterior ribs, favored to be acute/subacute. Correlation with point tenderness. 2.Otherwise no evidence of osseous or visceral injury in the chest,abdomen or pelvis. > Dictated by Heath Wu MD, (regional vice president surgical sales). I, Juwan Aceves have personally reviewed and interpreted this examination/study. > Interpreting Provider: Juwan Aceves on 09/29/2023 7:37 PM Alexis Atkins MD CT ORDERABLES * CT LUMBAR SPINE WO CONTRAST (09/29/2023 5:03 PM BUS AIDE) Anatomical Region Laterality Modality Spine Computed Tomogra phy 09/29/2023 5:12 PM BUS AIDE Impressions 09/29/2023 6:11 PM BUS AIDE IMPRESSION: 1. Small acute extra-axial hematoma along the right frontal convexity measuring up to 8 to 9 mm in thickness with minimal mass effect on the adjacent sulci. No midline shift. No new foci of hemorrhage. 2. No evidence of acute fracture in the cervical, thoracic, or lumbar spine. Multilevel degenerative changes as described above. > Interpreting Provider: Rosa Davis MD on 09/29/2023 6:11 PM Narrative 09/29/2023 6:11 PM BUS AIDE PROCEDURE: ??CT HEAD WO CONTRAST, CT LUMBAR SPINE WO CONTRAST, CT THORACIC SPINE WO CONTRAST, CT CERVICAL SPINE WO CONTRAST DATE/TIME OF EXAM: ??09/29/2023 5:04 PM CLINICAL INFORMATION: None relevant/not provided if blank. Indication: W19.XXXA: Fall, initial encounter Additional History: COMPARISON: Outside CT, same date, CT head 08/22/2022 TECHNIQUE: CT of the head and cervical spine were performed without contrast according to standard protocol. Reformatted axial, sagittal, and coronal images of the thoracic and lumbar spine were obtained by the technologist from a concurrently performed body CT and sent to the workstation for review. FINDINGS: Head: Small hyperdense extra-axial subdural or epidural hematoma along the right frontal convexity measuring up to 8 to 9 mm in thickness, unchanged compared to recent prior study, no new foci of hemorrhage. There is moderate generalized cerebral volume loss with associated ex vacuo ventricular dilatation. The basilar cisterns are patent. Minimal mass effect on the adjacent right frontal sulci. No midline shift.. The ng-white matter differentiation is normal. Periventricular white matter, pontine hypoattenuation is indicative of chronic small vessel ischemic disease. There is vascular calcification of the carotid siphons. Other than bilateral cataract extractions, the visualized portions of the orbits, paranasal sinuses, and mastoids appear normal. No definite calvarial fracture is noted. Minimal right frontal scalp swelling. Cervical spine: Mild anterolisthesis of C2 over C3 C3 over C4, C4 over C5, degenerative.. Vertebral bodies are normal in height without evidence of acute fracture. Other than middle atlantoaxial joint osteoarthritis, the craniocervical junction appears normal. Multilevel mild to moderate posterior disc bulges most prominent at the level of C5-C6 and C6-C7. These degenerative changes most prominent at the level of C6-C7 and C7 C7 T1 with endplate erosions and disc space narrowing. Multilevel mild to moderate central canal stenosis most prominent at the level of C3-C4 and C6-C7. There are varying degrees of advanced facet osteoarthritis. There are varying degrees of advanced uncovertebral joint osteoarthritis multilevel moderate to severe neural foramina stenosis most prominent at the level of right C3-C4, left C4-C5, bilateral C6-C7. No acute soft tissue abnormality is identified. Artifact limits evaluation of subtle clavicular fractures. Slight heterogeneous appearance of the thyroid gland more conspicuous on the thoracic spine imaging with multiple small nodules. Thoracic spine: Diffuse osteopenia limits evaluation for subtle fractures. No evidence of traumatic malalignment. Minimal kyphosis and dextrocurvature. Multilevel mild vertebral height loss predominantly in the mid to lower thoracic vertebral bodies with endplate degenerative changes. No significant posterior disc osteophyte complexes or disc bulges. No significant central canal stenosis is seen. Multilevel mild to moderate facet arthropathy predominantly in the upper thoracic spine on the right side.. There is associated mild to moderate neural foraminal stenosis at multiple levels.. No soft tissue abnormality is identified. Partially visualized right second/third mildly displaced fracture, please refer to CT chest from same day for additional details. (Image 56, series 1) Lumbar spine: Diffuse osteopenia limits evaluation for subtle fractures predominantly involving the sacrum. Mild levocurvature of the lumbar spine. Minimal anterolisthesis of L4 over L5 and L5 over S1. Vertebral bodies are normal in height without evidence of acute fracture. Multilevel moderate disc degenerative changes with disc height loss and vacuum degeneration.. Multilevel mild to moderate central canal stenosis most prominent at the level of L3-L4 and L4-L5 Moderate to severe facet arthropathy most prominent on the right through the levels of L3-L4 to L5-S1. Multilevel moderate neural foramina stenosis most prominent at the level of right L2-L3, L4-L5, L5-S1 bilaterally There is atherosclerotic calcification of the abdominal aorta and its branch vessels. Please refer to CT chest abdomen pelvis from same day for additional soft tissue details. Procedure Note Rosa Davis MD - 09/29/2023 PROCEDURE: CT HEAD WO CONTRAST, CT LUMBAR SPINE WO CONTRAST, CTTHORACIC SPINE WO CONTRAST, CT CERVICAL SPINE WO CONTRAST DATE/TIME OF EXAM: 09/29/2023 5:04 PM CLINICAL INFORMATION: None relevant/not provided if blank. Indication: W19.XXXA: Fall, initial encounter Additional History: COMPARISON: Outside CT, same date, CT head 08/22/2022 TECHNIQUE: CT of the head and cervical spine were performed without contrastaccording to standard protocol. Reformatted axial, sagittal, and coronal images of the thoracic and lumbar spine were obtained by the technologist from a concurrently performed body CT and sent to the workstation for review. FINDINGS: Head: Small hyperdense extra-axial subdural or epidural hematoma along theright frontal convexity measuring up to 8 to 9 mm in thickness, unchanged compared to recent prior study, no new foci of hemorrhage. There is moderate generalized cerebral volume loss with associated ex vacuo ventricular dilatation. The basilar cisterns are patent. Minimal mass effect on the adjacent right frontal sulci. No midline shift.. The ng-white matter differentiation is normal. Periventricular whitematter, pontine hypoattenuation is indicative of chronic small vessel ischemic disease. There is vascular calcification of the carotid siphons. Otherthan bilateral cataract extractions, the visualized portions of the orbits, paranasal sinuses, and mastoids appear normal. No definite calvarial fracture is noted. Minimal right frontal scalp swelling. Cervical spine: Mild anterolisthesis of C2 over C3 C3 over C4, C4 over C5,degenerative.. Vertebral bodies are normal in height without evidence of acutefracture. Other than middle atlantoaxial joint osteoarthritis, the craniocervical junction appears normal. Multilevel mild to moderate posterior discbulges most prominent at the level of C5-C6 and C6-C7. These degenerativechanges most prominent at the level of C6-C7 and C7 C7 T1 with endplate erosions and disc space narrowing. Multilevel mild to moderate central canal stenosis most prominent at the level of C3-C4 and C6-C7. There arevarying degrees of advanced facet osteoarthritis. There are varying degrees of advanced uncovertebral joint osteoarthritis multilevel moderate tosevere neural foramina stenosis most prominent at the level of right C3-C4,left C4-C5, bilateral C6-C7. No acute soft tissue abnormality is identified. Artifact limits evaluation of subtle clavicular fractures. Slight heterogeneous appearance of the thyroid gland more conspicuous on the thoracic spine imaging with multiple small nodules. Thoracic spine: Diffuse osteopenia limits evaluation for subtle fractures. No evidence of traumatic malalignment. Minimal kyphosis and dextrocurvature. Multilevel mild vertebral height loss predominantly inthe mid to lower thoracic vertebral bodies with endplate degenerativechanges. No significant posterior disc osteophyte complexes or disc bulges. No significant central canal stenosis is seen. Multilevel mild to moderate facet arthropathy predominantly in the upper thoracic spine on the right side.. There is associated mild to moderate neural foraminal stenosis at multiple levels.. No soft tissue abnormality is identified. Partially visualized right second/third mildly displaced fracture, please refer toCT chest from same day for additional details. (Image 56, series 1) Lumbar spine: Diffuse osteopenia limits evaluation for subtle fractures predominantly involving the sacrum. Mild levocurvature of the lumbar spine. Minimal anterolisthesis of L4over L5 and L5 over S1. Vertebral bodies are normal in height withoutevidence of acute fracture. Multilevel moderate disc degenerative changes withdisc height loss and vacuum degeneration.. Multilevel mild to moderatecentral canal stenosis most prominent at the level of L3-L4 and L4-L5 Moderateto severe facet arthropathy most prominent on the right through the levelsof L3-L4 to L5-S1. Multilevel moderate neural foramina stenosis mostprominent at the level of right L2-L3, L4-L5, L5-S1 bilaterally There is atherosclerotic calcification of the abdominal aorta and its branch vessels. Please refer to CT chest abdomen pelvis from same day for additional soft tissue details. IMPRESSION: 1. Small acute extra-axial hematoma along the right frontal convexity measuring up to 8 to 9 mm in thickness with minimal mass effect on the adjacent sulci. No midline shift. No new foci of hemorrhage. 2. No evidence of acute fracture in the cervical, thoracic, or lumbar spine. Multilevel degenerative changes as described above. > Interpreting Provider: Rosa Davis MD on 09/29/2023 6:11 PM Alexis Atkins MD CT ORDERABLES * CT THORACIC SPINE WO CONTRAST (09/29/2023 5:03 PM BUS AIDE) Anatomical Region Laterality Modality Spine Computed Tomogra phy 09/29/2023 5:12 PM BUS AIDE Impressions 09/29/2023 6:11 PM BUS AIDE IMPRESSION: 1. Small acute extra-axial hematoma along the right frontal convexity measuring up to 8 to 9 mm in thickness with minimal mass effect on the adjacent sulci. No midline shift. No new foci of hemorrhage. 2. No evidence of acute fracture in the cervical, thoracic, or lumbar spine. Multilevel degenerative changes as described above. > Interpreting Provider: Rosa Davis MD on 09/29/2023 6:11 PM Narrative 09/29/2023 6:11 PM BUS AIDE PROCEDURE: ??CT HEAD WO CONTRAST, CT LUMBAR SPINE WO CONTRAST, CT THORACIC SPINE WO CONTRAST, CT CERVICAL SPINE WO CONTRAST DATE/TIME OF EXAM: ??09/29/2023 5:04 PM CLINICAL INFORMATION: None relevant/not provided if blank. Indication: W19.XXXA: Fall, initial encounter Additional History: COMPARISON: Outside CT, same date, CT head 08/22/2022 TECHNIQUE: CT of the head and cervical spine were performed without contrast according to standard protocol. Reformatted axial, sagittal, and coronal images of the thoracic and lumbar spine were obtained by the technologist from a concurrently performed body CT and sent to the workstation for review. FINDINGS: Head: Small hyperdense extra-axial subdural or epidural hematoma along the right frontal convexity measuring up to 8 to 9 mm in thickness, unchanged compared to recent prior study, no new foci of hemorrhage. There is moderate generalized cerebral volume loss with associated ex vacuo ventricular dilatation. The basilar cisterns are patent. Minimal mass effect on the adjacent right frontal sulci. No midline shift.. The ng-white matter differentiation is normal. Periventricular white matter, pontine hypoattenuation is indicative of chronic small vessel ischemic disease. There is vascular calcification of the carotid siphons. Other than bilateral cataract extractions, the visualized portions of the orbits, paranasal sinuses, and mastoids appear normal. No definite calvarial fracture is noted. Minimal right frontal scalp swelling. Cervical spine: Mild anterolisthesis of C2 over C3 C3 over C4, C4 over C5, degenerative.. Vertebral bodies are normal in height without evidence of acute fracture. Other than middle atlantoaxial joint osteoarthritis, the craniocervical junction appears normal. Multilevel mild to moderate posterior disc bulges most prominent at the level of C5-C6 and C6-C7. These degenerative changes most prominent at the level of C6-C7 and C7 C7 T1 with endplate erosions and disc space narrowing. Multilevel mild to moderate central canal stenosis most prominent at the level of C3-C4 and C6-C7. There are varying degrees of advanced facet osteoarthritis. There are varying degrees of advanced uncovertebral joint osteoarthritis multilevel moderate to severe neural foramina stenosis most prominent at the level of right C3-C4, left C4-C5, bilateral C6-C7. No acute soft tissue abnormality is identified. Artifact limits evaluation of subtle clavicular fractures. Slight heterogeneous appearance of the thyroid gland more conspicuous on the thoracic spine imaging with multiple small nodules. Thoracic spine: Diffuse osteopenia limits evaluation for subtle fractures. No evidence of traumatic malalignment. Minimal kyphosis and dextrocurvature. Multilevel mild vertebral height loss predominantly in the mid to lower thoracic vertebral bodies with endplate degenerative changes. No significant posterior disc osteophyte complexes or disc bulges. No significant central canal stenosis is seen. Multilevel mild to moderate facet arthropathy predominantly in the upper thoracic spine on the right side.. There is associated mild to moderate neural foraminal stenosis at multiple levels.. No soft tissue abnormality is identified. Partially visualized right second/third mildly displaced fracture, please refer to CT chest from same day for additional details. (Image 56, series 1) Lumbar spine: Diffuse osteopenia limits evaluation for subtle fractures predominantly involving the sacrum. Mild levocurvature of the lumbar spine. Minimal anterolisthesis of L4 over L5 and L5 over S1. Vertebral bodies are normal in height without evidence of acute fracture. Multilevel moderate disc degenerative changes with disc height loss and vacuum degeneration.. Multilevel mild to moderate central canal stenosis most prominent at the level of L3-L4 and L4-L5 Moderate to severe facet arthropathy most prominent on the right through the levels of L3-L4 to L5-S1. Multilevel moderate neural foramina stenosis most prominent at the level of right L2-L3, L4-L5, L5-S1 bilaterally There is atherosclerotic calcification of the abdominal aorta and its branch vessels. Please refer to CT chest abdomen pelvis from same day for additional soft tissue details. Procedure Note Rosa Davis MD - 09/29/2023 PROCEDURE: CT HEAD WO CONTRAST, CT LUMBAR SPINE WO CONTRAST, CTTHORACIC SPINE WO CONTRAST, CT CERVICAL SPINE WO CONTRAST DATE/TIME OF EXAM: 09/29/2023 5:04 PM CLINICAL INFORMATION: None relevant/not provided if blank. Indication: W19.XXXA: Fall, initial encounter Additional History: COMPARISON: Outside CT, same date, CT head 08/22/2022 TECHNIQUE: CT of the head and cervical spine were performed without contrastaccording to standard protocol. Reformatted axial, sagittal, and coronal images of the thoracic and lumbar spine were obtained by the technologist from a concurrently performed body CT and sent to the workstation for review. FINDINGS: Head: Small hyperdense extra-axial subdural or epidural hematoma along theright frontal convexity measuring up to 8 to 9 mm in thickness, unchanged compared to recent prior study, no new foci of hemorrhage. There is moderate generalized cerebral volume loss with associated ex vacuo ventricular dilatation. The basilar cisterns are patent. Minimal mass effect on the adjacent right frontal sulci. No midline shift.. The ng-white matter differentiation is normal. Periventricular whitematter, pontine hypoattenuation is indicative of chronic small vessel ischemic disease. There is vascular calcification of the carotid siphons. Otherthan bilateral cataract extractions, the visualized portions of the orbits, paranasal sinuses, and mastoids appear normal. No definite calvarial fracture is noted. Minimal right frontal scalp swelling. Cervical spine: Mild anterolisthesis of C2 over C3 C3 over C4, C4 over C5,degenerative.. Vertebral bodies are normal in height without evidence of acutefracture. Other than middle atlantoaxial joint osteoarthritis, the craniocervical junction appears normal. Multilevel mild to moderate posterior discbulges most prominent at the level of C5-C6 and C6-C7. These degenerativechanges most prominent at the level of C6-C7 and C7 C7 T1 with endplate erosions and disc space narrowing. Multilevel mild to moderate central canal stenosis most prominent at the level of C3-C4 and C6-C7. There arevarying degrees of advanced facet osteoarthritis. There are varying degrees of advanced uncovertebral joint osteoarthritis multilevel moderate tosevere neural foramina stenosis most prominent at the level of right C3-C4,left C4-C5, bilateral C6-C7. No acute soft tissue abnormality is identified. Artifact limits evaluation of subtle clavicular fractures. Slight heterogeneous appearance of the thyroid gland more conspicuous on the thoracic spine imaging with multiple small nodules. Thoracic spine: Diffuse osteopenia limits evaluation for subtle fractures. No evidence of traumatic malalignment. Minimal kyphosis and dextrocurvature. Multilevel mild vertebral height loss predominantly inthe mid to lower thoracic vertebral bodies with endplate degenerativechanges. No significant posterior disc osteophyte complexes or disc bulges. No significant central canal stenosis is seen. Multilevel mild to moderate facet arthropathy predominantly in the upper thoracic spine on the right side.. There is associated mild to moderate neural foraminal stenosis at multiple levels.. No soft tissue abnormality is identified. Partially visualized right second/third mildly displaced fracture, please refer toCT chest from same day for additional details. (Image 56, series 1) Lumbar spine: Diffuse osteopenia limits evaluation for subtle fractures predominantly involving the sacrum. Mild levocurvature of the lumbar spine. Minimal anterolisthesis of L4over L5 and L5 over S1. Vertebral bodies are normal in height withoutevidence of acute fracture. Multilevel moderate disc degenerative changes withdisc height loss and vacuum degeneration.. Multilevel mild to moderatecentral canal stenosis most prominent at the level of L3-L4 and L4-L5 Moderateto severe facet arthropathy most prominent on the right through the levelsof L3-L4 to L5-S1. Multilevel moderate neural foramina stenosis mostprominent at the level of right L2-L3, L4-L5, L5-S1 bilaterally There is atherosclerotic calcification of the abdominal aorta and its branch vessels. Please refer to CT chest abdomen pelvis from same day for additional soft tissue details. IMPRESSION: 1. Small acute extra-axial hematoma along the right frontal convexity measuring up to 8 to 9 mm in thickness with minimal mass effect on the adjacent sulci. No midline shift. No new foci of hemorrhage. 2. No evidence of acute fracture in the cervical, thoracic, or lumbar spine. Multilevel degenerative changes as described above. > Interpreting Provider: Rosa Davis MD on 09/29/2023 6:11 PM Alexis Atkins MD CT ORDERABLES * CT CERVICAL SPINE WO CONTRAST (09/29/2023 5:03 PM BUS AIDE) Anatomical Region Laterality Modality Spine Computed Tomogra phy 09/29/2023 5:12 PM BUS AIDE Impressions 09/29/2023 6:11 PM BUS AIDE IMPRESSION: 1. Small acute extra-axial hematoma along the right frontal convexity measuring up to 8 to 9 mm in thickness with minimal mass effect on the adjacent sulci. No midline shift. No new foci of hemorrhage. 2. No evidence of acute fracture in the cervical, thoracic, or lumbar spine. Multilevel degenerative changes as described above. > Interpreting Provider: Rosa Davis MD on 09/29/2023 6:11 PM Narrative 09/29/2023 6:11 PM BUS AIDE PROCEDURE: ??CT HEAD WO CONTRAST, CT LUMBAR SPINE WO CONTRAST, CT THORACIC SPINE WO CONTRAST, CT CERVICAL SPINE WO CONTRAST DATE/TIME OF EXAM: ??09/29/2023 5:04 PM CLINICAL INFORMATION: None relevant/not provided if blank. Indication: W19.XXXA: Fall, initial encounter Additional History: COMPARISON: Outside CT, same date, CT head 08/22/2022 TECHNIQUE: CT of the head and cervical spine were performed without contrast according to standard protocol. Reformatted axial, sagittal, and coronal images of the thoracic and lumbar spine were obtained by the technologist from a concurrently performed body CT and sent to the workstation for review. FINDINGS: Head: Small hyperdense extra-axial subdural or epidural hematoma along the right frontal convexity measuring up to 8 to 9 mm in thickness, unchanged compared to recent prior study, no new foci of hemorrhage. There is moderate generalized cerebral volume loss with associated ex vacuo ventricular dilatation. The basilar cisterns are patent. Minimal mass effect on the adjacent right frontal sulci. No midline shift.. The ng-white matter differentiation is normal. Periventricular white matter, pontine hypoattenuation is indicative of chronic small vessel ischemic disease. There is vascular calcification of the carotid siphons. Other than bilateral cataract extractions, the visualized portions of the orbits, paranasal sinuses, and mastoids appear normal. No definite calvarial fracture is noted. Minimal right frontal scalp swelling. Cervical spine: Mild anterolisthesis of C2 over C3 C3 over C4, C4 over C5, degenerative.. Vertebral bodies are normal in height without evidence of acute fracture. Other than middle atlantoaxial joint osteoarthritis, the craniocervical junction appears normal. Multilevel mild to moderate posterior disc bulges most prominent at the level of C5-C6 and C6-C7. These degenerative changes most prominent at the level of C6-C7 and C7 C7 T1 with endplate erosions and disc space narrowing. Multilevel mild to moderate central canal stenosis most prominent at the level of C3-C4 and C6-C7. There are varying degrees of advanced facet osteoarthritis. There are varying degrees of advanced uncovertebral joint osteoarthritis multilevel moderate to severe neural foramina stenosis most prominent at the level of right C3-C4, left C4-C5, bilateral C6-C7. No acute soft tissue abnormality is identified. Artifact limits evaluation of subtle clavicular fractures. Slight heterogeneous appearance of the thyroid gland more conspicuous on the thoracic spine imaging with multiple small nodules. Thoracic spine: Diffuse osteopenia limits evaluation for subtle fractures. No evidence of traumatic malalignment. Minimal kyphosis and dextrocurvature. Multilevel mild vertebral height loss predominantly in the mid to lower thoracic vertebral bodies with endplate degenerative changes. No significant posterior disc osteophyte complexes or disc bulges. No significant central canal stenosis is seen. Multilevel mild to moderate facet arthropathy predominantly in the upper thoracic spine on the right side.. There is associated mild to moderate neural foraminal stenosis at multiple levels.. No soft tissue abnormality is identified. Partially visualized right second/third mildly displaced fracture, please refer to CT chest from same day for additional details. (Image 56, series 1) Lumbar spine: Diffuse osteopenia limits evaluation for subtle fractures predominantly involving the sacrum. Mild levocurvature of the lumbar spine. Minimal anterolisthesis of L4 over L5 and L5 over S1. Vertebral bodies are normal in height without evidence of acute fracture. Multilevel moderate disc degenerative changes with disc height loss and vacuum degeneration.. Multilevel mild to moderate central canal stenosis most prominent at the level of L3-L4 and L4-L5 Moderate to severe facet arthropathy most prominent on the right through the levels of L3-L4 to L5-S1. Multilevel moderate neural foramina stenosis most prominent at the level of right L2-L3, L4-L5, L5-S1 bilaterally There is atherosclerotic calcification of the abdominal aorta and its branch vessels. Please refer to CT chest abdomen pelvis from same day for additional soft tissue details. Procedure Note Rosa Davis MD - 09/29/2023 PROCEDURE: CT HEAD WO CONTRAST, CT LUMBAR SPINE WO CONTRAST, CTTHORACIC SPINE WO CONTRAST, CT CERVICAL SPINE WO CONTRAST DATE/TIME OF EXAM: 09/29/2023 5:04 PM CLINICAL INFORMATION: None relevant/not provided if blank. Indication: W19.XXXA: Fall, initial encounter Additional History: COMPARISON: Outside CT, same date, CT head 08/22/2022 TECHNIQUE: CT of the head and cervical spine were performed without contrastaccording to standard protocol. Reformatted axial, sagittal, and coronal images of the thoracic and lumbar spine were obtained by the technologist from a concurrently performed body CT and sent to the workstation for review. FINDINGS: Head: Small hyperdense extra-axial subdural or epidural hematoma along theright frontal convexity measuring up to 8 to 9 mm in thickness, unchanged compared to recent prior study, no new foci of hemorrhage. There is moderate generalized cerebral volume loss with associated ex vacuo ventricular dilatation. The basilar cisterns are patent. Minimal mass effect on the adjacent right frontal sulci. No midline shift.. The ng-white matter differentiation is normal. Periventricular whitematter, pontine hypoattenuation is indicative of chronic small vessel ischemic disease. There is vascular calcification of the carotid siphons. Otherthan bilateral cataract extractions, the visualized portions of the orbits, paranasal sinuses, and mastoids appear normal. No definite calvarial fracture is noted. Minimal right frontal scalp swelling. Cervical spine: Mild anterolisthesis of C2 over C3 C3 over C4, C4 over C5,degenerative.. Vertebral bodies are normal in height without evidence of acutefracture. Other than middle atlantoaxial joint osteoarthritis, the craniocervical junction appears normal. Multilevel mild to moderate posterior discbulges most prominent at the level of C5-C6 and C6-C7. These degenerativechanges most prominent at the level of C6-C7 and C7 C7 T1 with endplate erosions and disc space narrowing. Multilevel mild to moderate central canal stenosis most prominent at the level of C3-C4 and C6-C7. There arevarying degrees of advanced facet osteoarthritis. There are varying degrees of advanced uncovertebral joint osteoarthritis multilevel moderate tosevere neural foramina stenosis most prominent at the level of right C3-C4,left C4-C5, bilateral C6-C7. No acute soft tissue abnormality is identified. Artifact limits evaluation of subtle clavicular fractures. Slight heterogeneous appearance of the thyroid gland more conspicuous on the thoracic spine imaging with multiple small nodules. Thoracic spine: Diffuse osteopenia limits evaluation for subtle fractures. No evidence of traumatic malalignment. Minimal kyphosis and dextrocurvature. Multilevel mild vertebral height loss predominantly inthe mid to lower thoracic vertebral bodies with endplate degenerativechanges. No significant posterior disc osteophyte complexes or disc bulges. No significant central canal stenosis is seen. Multilevel mild to moderate facet arthropathy predominantly in the upper thoracic spine on the right side.. There is associated mild to moderate neural foraminal stenosis at multiple levels.. No soft tissue abnormality is identified. Partially visualized right second/third mildly displaced fracture, please refer toCT chest from same day for additional details. (Image 56, series 1) Lumbar spine: Diffuse osteopenia limits evaluation for subtle fractures predominantly involving the sacrum. Mild levocurvature of the lumbar spine. Minimal anterolisthesis of L4over L5 and L5 over S1. Vertebral bodies are normal in height withoutevidence of acute fracture. Multilevel moderate disc degenerative changes withdisc height loss and vacuum degeneration.. Multilevel mild to moderatecentral canal stenosis most prominent at the level of L3-L4 and L4-L5 Moderateto severe facet arthropathy most prominent on the right through the levelsof L3-L4 to L5-S1. Multilevel moderate neural foramina stenosis mostprominent at the level of right L2-L3, L4-L5, L5-S1 bilaterally There is atherosclerotic calcification of the abdominal aorta and its branch vessels. Please refer to CT chest abdomen pelvis from same day for additional soft tissue details. IMPRESSION: 1. Small acute extra-axial hematoma along the right frontal convexity measuring up to 8 to 9 mm in thickness with minimal mass effect on the adjacent sulci. No midline shift. No new foci of hemorrhage. 2. No evidence of acute fracture in the cervical, thoracic, or lumbar spine. Multilevel degenerative changes as described above. > Interpreting Provider: Rosa Davis MD on 09/29/2023 6:11 PM Alexis Atknis MD CT ORDERABLES * CT HEAD WO CONTRAST (09/29/2023 5:03 PM BUS AIDE) Only the most recent of3 resultswithin the time period is included. Anatomical Region Laterality Modality Head Computed Tomogra phy 09/29/2023 5:12 PM BUS AIDE Impressions 09/29/2023 6:11 PM BUS AIDE IMPRESSION: 1. Small acute extra-axial hematoma along the right frontal convexity measuring up to 8 to 9 mm in thickness with minimal mass effect on the adjacent sulci. No midline shift. No new foci of hemorrhage. 2. No evidence of acute fracture in the cervical, thoracic, or lumbar spine. Multilevel degenerative changes as described above. > Interpreting Provider: Rosa Davis MD on 09/29/2023 6:11 PM Narrative 09/29/2023 6:11 PM BUS AIDE PROCEDURE: ??CT HEAD WO CONTRAST, CT LUMBAR SPINE WO CONTRAST, CT THORACIC SPINE WO CONTRAST, CT CERVICAL SPINE WO CONTRAST DATE/TIME OF EXAM: ??09/29/2023 5:04 PM CLINICAL INFORMATION: None relevant/not provided if blank. Indication: W19.XXXA: Fall, initial encounter Additional History: COMPARISON: Outside CT, same date, CT head 08/22/2022 TECHNIQUE: CT of the head and cervical spine were performed without contrast according to standard protocol. Reformatted axial, sagittal, and coronal images of the thoracic and lumbar spine were obtained by the technologist from a concurrently performed body CT and sent to the workstation for review. FINDINGS: Head: Small hyperdense extra-axial subdural or epidural hematoma along the right frontal convexity measuring up to 8 to 9 mm in thickness, unchanged compared to recent prior study, no new foci of hemorrhage. There is moderate generalized cerebral volume loss with associated ex vacuo ventricular dilatation. The basilar cisterns are patent. Minimal mass effect on the adjacent right frontal sulci. No midline shift.. The ng-white matter differentiation is normal. Periventricular white matter, pontine hypoattenuation is indicative of chronic small vessel ischemic disease. There is vascular calcification of the carotid siphons. Other than bilateral cataract extractions, the visualized portions of the orbits, paranasal sinuses, and mastoids appear normal. No definite calvarial fracture is noted. Minimal right frontal scalp swelling. Cervical spine: Mild anterolisthesis of C2 over C3 C3 over C4, C4 over C5, degenerative.. Vertebral bodies are normal in height without evidence of acute fracture. Other than middle atlantoaxial joint osteoarthritis, the craniocervical junction appears normal. Multilevel mild to moderate posterior disc bulges most prominent at the level of C5-C6 and C6-C7. These degenerative changes most prominent at the level of C6-C7 and C7 C7 T1 with endplate erosions and disc space narrowing. Multilevel mild to moderate central canal stenosis most prominent at the level of C3-C4 and C6-C7. There are varying degrees of advanced facet osteoarthritis. There are varying degrees of advanced uncovertebral joint osteoarthritis multilevel moderate to severe neural foramina stenosis most prominent at the level of right C3-C4, left C4-C5, bilateral C6-C7. No acute soft tissue abnormality is identified. Artifact limits evaluation of subtle clavicular fractures. Slight heterogeneous appearance of the thyroid gland more conspicuous on the thoracic spine imaging with multiple small nodules. Thoracic spine: Diffuse osteopenia limits evaluation for subtle fractures. No evidence of traumatic malalignment. Minimal kyphosis and dextrocurvature. Multilevel mild vertebral height loss predominantly in the mid to lower thoracic vertebral bodies with endplate degenerative changes. No significant posterior disc osteophyte complexes or disc bulges. No significant central canal stenosis is seen. Multilevel mild to moderate facet arthropathy predominantly in the upper thoracic spine on the right side.. There is associated mild to moderate neural foraminal stenosis at multiple levels.. No soft tissue abnormality is identified. Partially visualized right second/third mildly displaced fracture, please refer to CT chest from same day for additional details. (Image 56, series 1) Lumbar spine: Diffuse osteopenia limits evaluation for subtle fractures predominantly involving the sacrum. Mild levocurvature of the lumbar spine. Minimal anterolisthesis of L4 over L5 and L5 over S1. Vertebral bodies are normal in height without evidence of acute fracture. Multilevel moderate disc degenerative changes with disc height loss and vacuum degeneration.. Multilevel mild to moderate central canal stenosis most prominent at the level of L3-L4 and L4-L5 Moderate to severe facet arthropathy most prominent on the right through the levels of L3-L4 to L5-S1. Multilevel moderate neural foramina stenosis most prominent at the level of right L2-L3, L4-L5, L5-S1 bilaterally There is atherosclerotic calcification of the abdominal aorta and its branch vessels. Please refer to CT chest abdomen pelvis from same day for additional soft tissue details. Procedure Note Rosa Davis MD - 09/29/2023 PROCEDURE: CT HEAD WO CONTRAST, CT LUMBAR SPINE WO CONTRAST, CTTHORACIC SPINE WO CONTRAST, CT CERVICAL SPINE WO CONTRAST DATE/TIME OF EXAM: 09/29/2023 5:04 PM CLINICAL INFORMATION: None relevant/not provided if blank. Indication: W19.XXXA: Fall, initial encounter Additional History: COMPARISON: Outside CT, same date, CT head 08/22/2022 TECHNIQUE: CT of the head and cervical spine were performed without contrastaccording to standard protocol. Reformatted axial, sagittal, and coronal images of the thoracic and lumbar spine were obtained by the technologist from a concurrently performed body CT and sent to the workstation for review. FINDINGS: Head: Small hyperdense extra-axial subdural or epidural hematoma along theright frontal convexity measuring up to 8 to 9 mm in thickness, unchanged compared to recent prior study, no new foci of hemorrhage. There is moderate generalized cerebral volume loss with associated ex vacuo ventricular dilatation. The basilar cisterns are patent. Minimal mass effect on the adjacent right frontal sulci. No midline shift.. The ng-white matter differentiation is normal. Periventricular whitematter, pontine hypoattenuation is indicative of chronic small vessel ischemic disease. There is vascular calcification of the carotid siphons. Otherthan bilateral cataract extractions, the visualized portions of the orbits, paranasal sinuses, and mastoids appear normal. No definite calvarial fracture is noted. Minimal right frontal scalp swelling. Cervical spine: Mild anterolisthesis of C2 over C3 C3 over C4, C4 over C5,degenerative.. Vertebral bodies are normal in height without evidence of acutefracture. Other than middle atlantoaxial joint osteoarthritis, the craniocervical junction appears normal. Multilevel mild to moderate posterior discbulges most prominent at the level of C5-C6 and C6-C7. These degenerativechanges most prominent at the level of C6-C7 and C7 C7 T1 with endplate erosions and disc space narrowing. Multilevel mild to moderate central canal stenosis most prominent at the level of C3-C4 and C6-C7. There arevarying degrees of advanced facet osteoarthritis. There are varying degrees of advanced uncovertebral joint osteoarthritis multilevel moderate tosevere neural foramina stenosis most prominent at the level of right C3-C4,left C4-C5, bilateral C6-C7. No acute soft tissue abnormality is identified. Artifact limits evaluation of subtle clavicular fractures. Slight heterogeneous appearance of the thyroid gland more conspicuous on the thoracic spine imaging with multiple small nodules. Thoracic spine: Diffuse osteopenia limits evaluation for subtle fractures. No evidence of traumatic malalignment. Minimal kyphosis and dextrocurvature. Multilevel mild vertebral height loss predominantly inthe mid to lower thoracic vertebral bodies with endplate degenerativechanges. No significant posterior disc osteophyte complexes or disc bulges. No significant central canal stenosis is seen. Multilevel mild to moderate facet arthropathy predominantly in the upper thoracic spine on the right side.. There is associated mild to moderate neural foraminal stenosis at multiple levels.. No soft tissue abnormality is identified. Partially visualized right second/third mildly displaced fracture, please refer toCT chest from same day for additional details. (Image 56, series 1) Lumbar spine: Diffuse osteopenia limits evaluation for subtle fractures predominantly involving the sacrum. Mild levocurvature of the lumbar spine. Minimal anterolisthesis of L4over L5 and L5 over S1. Vertebral bodies are normal in height withoutevidence of acute fracture. Multilevel moderate disc degenerative changes withdisc height loss and vacuum degeneration.. Multilevel mild to moderatecentral canal stenosis most prominent at the level of L3-L4 and L4-L5 Moderateto severe facet arthropathy most prominent on the right through the levelsof L3-L4 to L5-S1. Multilevel moderate neural foramina stenosis mostprominent at the level of right L2-L3, L4-L5, L5-S1 bilaterally There is atherosclerotic calcification of the abdominal aorta and its branch vessels. Please refer to CT chest abdomen pelvis from same day for additional soft tissue details. IMPRESSION: 1. Small acute extra-axial hematoma along the right frontal convexity measuring up to 8 to 9 mm in thickness with minimal mass effect on the adjacent sulci. No midline shift. No new foci of hemorrhage. 2. No evidence of acute fracture in the cervical, thoracic, or lumbar spine. Multilevel degenerative changes as described above. > Interpreting Provider: Rosa Davis MD on 09/29/2023 6:11 PM Alexis Atkins MD CT ORDERABLES * IR CENTRAL LINE REMOVAL (08/03/2023 10:54 AM CDT) Anatomical Region Laterality Modality X-Ray Angiograph y Narrative 08/03/2023 11:00 AM CDT Christine Benitez MD ? 08/03/2023 11:03 AM Surgeon: Christine Benitez MD Pre-Procedure diagnosis: ESRD Time out and final pre-procedure assessment completed immediately prior to start of procedure. Medications reviewed. Post-Procedure diagnosis: Same Anesthesia: Local Technical Procedure Performed: ??Left upper extremity AV graft injection with angioplasty; tunneled right IJ hemodialysis catheter removal Findings: ??After informed consent was obtained the patient was placed supine on the angiogram table and the left upper extremity was prepped and draped in the usual sterile fashion. ??Anesthesia was obtained with lidocaine and the graft was punctured with a micropuncture set in antegrade manner. ??Contrast injection demonstrates patency of the graft however a high-grade stenosis at the venous anastomosis was noted. ??Otherwise the visualized outflow and central venous structures demonstrated no significant abnormality. ?? A 7 [place]ibian sheath was introduced over a Bentson wire and angioplasty was performed with a 7 mm x 4 cm and subsequently an 8 mm x 4 cm Conquest balloon. ??Reflux injection during balloon inflation demonstrated widely patent arterial anastomosis. ?? Contrast injection after angioplasty demonstrated significant improvement at the stenosis site with no significant residual. ?? The sheath was removed and hemostasis was obtained using a pursestring suture. ?? Attention was then made to the right IJ tunneled hemodialysis catheter. ??The skin site was prepped and draped in the usual sterile fashion and anesthesia was obtained with lidocaine. ??The ?? Catheter was freed of scar tissue and the catheter was removed. ?? Hemostasis was obtained with manual compression. ??Patient tolerated the procedures well. ?? 35 cc of Isovue contrast was used. ??Radiation exposure 3.0 mGy Disposition: Home Status: Stable Drain or Pack: None Additional information/Complications: None Estimated blood loss: negligible Specimen(s) removed: No Specimen During the post-procedure debrief all intra-procedure verbal order medications ordered by the proceduralist were reviewed and authenticated. Christine Benitez MD IR ORDERABLES * Peripheral Nerve Block (06/15/2023 11:37 AM CDT) Narrative Jacob Maurice MD - 06/15/2023 11:37 AM CDT Jacob Maurice MD ? 06/15/2023 11:39 AM Peripheral ??Nerve Block ?? Procedure: Peripheral Nerve Block Patient Location: ??Pre-op Preprocedure Section: ?? Indications: surgical anesthesia. Pre-anesthetic Checklist: Patient identified, IV Checked, Site examined and clear, Risks and benefits discussed, Surgical consent verified, Monitors and equipment, Time-out performed, Informed consent obtained, Pre-op evaluation done, Questions answered/anesthesia questions answered, Allergies reviewed and Removal hand/wrist jewelry Monitors: Pulse Ox. Patient Condition: ??sedated, meaningful contact maintained throughout procedure Patient Position: sitting Patient Sedated? ??No Procedure Section ?? Laterality: left Block Performed: ??supraclavicular Prep: ??Chloraprep Strerile Field: gloves Needle Type: ??Echogenic insultaed Needle Length: ??50 mm Ultrasound Guided? ?? Yes ? Technique: ??out of plane ? Visualization: ??Preliminary scan performed, No intraneural or intravascular puncture occurred and Local visualized surrounding nerve on ultrasound Injection was made incrementally with constant monitoring and aspirations every 5 mL's Procedure Tolerance: tolerated well Staff Section ? Anesthesia Provider: Jacob Maurice MD, Performed the procedure Jacob Maurice MD GENERAL ANESTHESIA O RDERABLES * (ABNORMAL) BASIC METABOLIC PANEL (CALCIUM TOTAL) (06/15/2023 10:46 AM CDT) Only the most recent of13 resultswithin the time period is included. Glucose 105 70 - 105 mg/dL 06/15/2023 11:10 AM CDT [facility] Sodium 136 136 - 145 mmol/L 06/15/2023 11:10 AM CDT [facility] Potassium 3.7 3.5 - 5.1 mmol/L 06/15/2023 11:10 AM CDT [facility] Chloride 97(L) 98 - 107 mmol/L 06/15/2023 11:10 AM CDT [facility] CO2 27 22 - 29 mmol/L 06/15/2023 11:10 AM CDT [facility] Calcium 10.6(H) 8.4 - 10.4 mg/dL 06/15/2023 11:10 AM CDT [facility] Anion Gap 12 6 - 16 mmol/L 06/15/2023 11:10 AM CDT [facility] BUN 28(H) 7 - 26 mg/dL 06/15/2023 11:10 AM CDT [facility] Creatinine 3.99(H) 0.57 - 1.11 mg/dL 06/15/2023 11:10 AM CDT [facility] eGFR by CKD-EPI 11(L) >=90 mL/min/1.7 3 m2 06/15/2023 11:10 AM CDT [facility] Blood BLOOD SPECIMEN / Unknown Venipuncture / Unknown 06/15/2023 10:46 AM CDT 06/15/2023 10:55 AM CDT Zohra Peng DO LAB - CHEMISTRY LEOE STEPHENIE [facility] Organization Address City/State/ZIP Co de Phone Number [facility] [address] [place] [address] * VAS BILAT MAPPING FOR HEMODIALYSIS (03/31/2023 3:01 PM CDT) Anatomical Region Laterality Modality Lower Extremity, Upper Extremity Ultrasound 03/31/2023 2:47 PM CDT Narrative Procedure Note Andrew Rothman MD - 04/02/2023 [facility] [address] [address], [address] [place] [address] Vessel Mapping for Hemodialysis Report Pat.Name: PAYTON KIRSTY L Pat.ID: [id number] St.Date: 03/31/2023 Refer.MD: DONNA BLACKWELL Exam Time: 2:47:00 PM Study Type:Vessel Mapping for Hemodialysis Age: 2 1940,82Y Sex: FEMALE Sonogrphr: Agustín Valentin RVT Pat. Stat.:Outpatient CPT - 4: [id number] Reason for Study: End Stage Renal Disease Procedures: Vessel Mapping for Hemodialysis Race: 1 Visit ID: [id number] ++++++++++++++++++++++++++++++++++++ SUMMARY: ++++++++++++++++++++++++++++++++++++ Left - Cephalic vein is not patent. Basilic vein is not patent. Axillary vein is 4 mm and the basilic vein at the level of the axilla is almost 6 mm Correlate these findings clinically. ++++++++++++++++++++++++++++++++++++ FINDINGS: ++++++++++++++++++++++++++++++++++++ Procedure: Duplex vein mapping was carried out in the left upper extremity. Study Quality: This study is of adequate technical quality. Mapping Lt: The left cephalic vein is not patent and compressible. The left basilic vein is not patent and compressible. The left axillary vein measured .4 cm and the left basilic vein in the axilla measured .58 cm. Signed 04/02/2023 04:22 PM Andrew Rothman MD, RPVI Leland Thompson MD VASCULAR LAB ORD ERABLES * IR CENTRAL VENOUS CATH CHECK (03/31/2023 2:47 PM CDT) Anatomical Region Laterality Modality X-Ray Angiograph y Narrative 03/31/2023 2:57 PM CDT Leland Thompson MD ? 03/31/2023 ??3:00 PM [facility] Kirsty Rea 1940 DATE OF PROCEDURE: 03/31/2023 ORDERING PHYSICIAN: Donna PROCEDURE: ??Tunneled dialysis catheter check. ??SVC cavogram INDICATIONS FOR PROCEDURE: ??Reported hematoma around dialysis catheter by dialysis center DESCRIPTION OF PROCEDURE: ??Patient was brought to procedure room prepped and draped sterilely. ??Both ports were injected with contrast and no evidence of extravasation was seen. ??Both ports aspirated easily and flushed easily. ??Both ports were heparinized and dressed sterilely. ??A total of 10 cc of contrast and 1.0 mGy radiation were used for the procedure. ??The catheter is ready for immediate use. FINDINGS: ??Patent dialysis catheter without obstruction of flow or evidence of leak ? IMPRESSION: ??Patent tunneled dialysis catheter right IJ without evidence of leak. DICTATED BY: Leland Thompson M.D. DATE DICTATED: 03/31/2023 Interventional Post-Operative/Procedure Notes Surgeon: ? Donna Pre Procedure Diagnosis: ?? ESRD Post Procedure Diagnosis: ?? ESRD Anesthesia: ? Local 1% lidocaine and IV sedation Disposition: ? OPS Status: ? Stable Drain or Pack: ?None Additional Information/Complications: None Estimated Blood Loss: ?? Negligible Specimen: ? None Leland Thompson MD IR ORDERABLES * IR CENTRAL LINE REPLACE (03/23/2023 2:00 PM CDT) Anatomical Region Laterality Modality X-Ray Angiograph y Narrative 03/23/2023 2:02 PM CDT Christine Benitez MD ? 03/23/2023 ??2:04 PM Surgeon: Christine Benitez MD Pre-Procedure diagnosis: ESRD Time out and final pre-procedure assessment completed immediately prior to start of procedure. Medications reviewed. Post-Procedure diagnosis: Same Anesthesia: Local Technical Procedure Performed: ??Tunneled right IJ hemodialysis catheter exchange Findings: ??After informed consent was obtained the patient was placed supine on the angiogram table in the right chest around the existing catheter site was prepped and draped in the usual sterile fashion. ??Anesthesia was obtained with lidocaine. ??The catheter cuff was freed of scar tissue. ??0.035 Bentson wires were passed through each lumen and advanced into the inferior vena cava under fluoroscopy. ??The existing catheter was removed min exchanged for a longer 23 cm tip to cuff catheter. ??The tip was advanced under fluoroscopy into the right atrium. ??Both lumens flushed and aspirated easily and were appropriately packed with heparin. ??The catheter was secured to the patient using 2-0 Prolene sutures. ??The patient tolerated the procedure well. ?? Radiation exposure 4.7 mGy Disposition: Home Status: Stable Drain or Pack: None Additional information/Complications: None Estimated blood loss: negligible Specimen(s) removed: No Specimen During the post-procedure debrief all intra-procedure verbal order medications ordered by the proceduralist were reviewed and authenticated. Christine Benitez MD IR ORDERABLES * (ABNORMAL) CBC W/O DIFFERENTIAL (09/08/2022 1:48 AM BUS AIDE) Only the most recent of20 resultswithin the time period is included. WBC 7.2 3.5 - 10.5 10? 3 /uL 09/08/2022 2:53 AM [facility] RBC 2.98(L) 3.80 - 5.20 10? 6 /uL 09/08/2022 2:53 AM [facility] Hemoglobin 8.6(L) 12.0 - 15.6 g/dL 09/08/2022 2:53 AM [facility] Hematocrit 26.1(L) 35.0 - 45.0 % 09/08/2022 2:53 AM [facility] MCV 87.6 80.7 - 98.3 fL 09/08/2022 2:53 AM [facility] MCH 28.9 26.7 - 34.0 pg 09/08/2022 2:53 AM [facility] MCHC 33.0 30.8 - 35.9 g/dL 09/08/2022 2:53 AM [facility] RDW-SD 42.5 36.0 - 50.0 fL 09/08/2022 2:53 AM [facility] RDW-CV 14.0 11.2 - 14.8 % 09/08/2022 2:53 AM [facility] Platelet Count 268 150 - 400 10? 3 /uL 09/08/2022 2:53 AM [facility] MPV 10.1 9.4 - 12.9 fL 09/08/2022 2:53 AM [facility] nRBC Absolute 0.00 0 10? 3 /uL 09/08/2022 2:53 AM [facility] nRBC Auto 0.0 0 /100 WBC 09/08/2022 2:53 AM [facility] Blood BLOOD SPECIMEN / Unknown Lab Venipuncture / Unknown 09/08/2022 1:48 AM BUS AIDE 09/08/2022 2:44 AM BUS AIDE Jero Orozco MD LAB - HEMATOLOGY ORD ERABLES [facility] [address] [place] [address], [facility] [phone] * (ABNORMAL) RENAL FUNCTION PANEL (09/08/2022 1:48 AM BUS AIDE) Only the most recent of19 resultswithin the time period is included. BUN 39(H) 7 - 26 mg/dL 09/08/2022 3:17 AM [facility] Creatinine 2.69(H) 0.56 - 0.96 mg/dL 09/08/2022 3:17 AM [facility] Sodium 137 136 - 145 mmol/L 09/08/2022 3:17 AM [facility] Potassium 3.4(L) 3.5 - 4.5 mmol/L 09/08/2022 3:17 AM [facility] Chloride 99 98 - 107 mmol/L 09/08/2022 3:17 AM [facility] CO2 23 22 - 29 mmol/L 09/08/2022 3:17 AM [facility] Glucose 104 70 - 115 mg/dL 09/08/2022 3:17 AM [facility] Albumin 2.6(L) 3.4 - 5.0 g/dL 09/08/2022 3:17 AM [facility] Calcium 9.2 8.4 - 10.2 mg/dL 09/08/2022 3:17 AM [facility] Phosphorus 3.5 2.9 - 5.1 mg/dL 09/08/2022 3:17 AM [facility] Anion Gap 18 8 - 18 09/08/2022 3:17 AM [facility] BUN/Creatinine Ratio 14 7 - 23 09/08/2022 3:17 AM [facility] Osmolality Calculated 294 270 - 300 mOsm/kg 09/08/2022 3:17 AM [facility] eGFR by CKD-EPI 17(L) >=90 mL/min/1.7 3 m2 09/08/2022 3:17 AM [facility] Blood BLOOD SPECIMEN / Unknown Lab Venipuncture / Unknown 09/08/2022 1:48 AM BUS AIDE 09/08/2022 2:44 AM BUS AIDE Jero Orozco MD [facility] Organization Address City/State/ZIP Co de Phone Number [facility] [address] [place] [id number], [facility] [phone] * APHERESIS/TRANSFUSION ORDER (09/03/2022 1:06 PM CDT) Narrative 09/03/2022 1:06 PM CDT Ordered by an unspecified provider. Scanned Document NURSING - VITAL SIGN S AND ASSESSMENT * CT CHEST WO CONTRAST (09/01/2022 5:41 PM CDT) Only the most recent of2 resultswithin the time period is included. Anatomical Region Laterality Modality Chest Computed Tomogra phy 09/01/2022 6:34 PM CDT Impressions 09/02/2022 11:00 AM CDT Impression: 1.Atelectasis involving most of the right lower lobe. Lesser degree of middle lobe atelectasis. Mild left lung atelectasis. 2.Trace right pleural effusion, decreased. No left pleural effusion. > Dictated by Glendy Martínez MD (regional vice president surgical sales). I, Kevin Casas MD have personally reviewed and interpreted this examination/study. > Interpreting Provider: Kevin Casas MD on 09/02/2022 11:00 AM Narrative 09/02/2022 11:00 AM CDT PROCEDURE: ??CT CHEST WO CONTRAST, DATE/TIME OF EXAM: ??09/01/2022 5:41 PM, LOCATION ??[facility] INDICATION: J96.01: Acute respiratory failure with hypoxia (CMS/HCC) ADDITIONAL CLINICAL INFORMATION: Ordering Provider Reason For Exam: ??assess for RLL collapse per pulm recs COMPARISON: Chest CT dated 08/22/2022. TECHNIQUE: CT of the chest was performed without contrast according to standard protocol. Findings: Evaluation of visceral and vascular structures is degraded due to lack of intravenous contrast administration. A right IJ catheter tip terminates in the superior cavoatrial junction. Lower Neck and Axillae: A 1.1 cm left thyroid hypoattenuating lesion is unchanged. Lungs: Bilateral groundglass opacities are decreased compared to the prior exam. There is atelectasis involving most of the right lower lobe. There is a lesser degree of middle lobe atelectasis. Mild atelectasis in the left lung seen. Trace right pleural effusion, decreased. No left pleural effusion. No pneumothorax. Heart and Pericardium: The cardiac chambers are normal in size. Trace pericardial fluid. Atherosclerosis calcification of the coronary arteries and aorta are seen. Mediastinum and Heidi: No enlarged lymph nodes are present. Bones and Chest Wall: Bone windows demonstrate no suspicious lytic or blastic lesions. The visible osseous structures are intact. Degenerative changes of bilateral shoulders are seen. Upper Abdomen: Other than a small hiatal hernia, the visible portions of the upper abdominal organs are normal. Procedure Note Kevin Casas MD - 09/02/2022 PROCEDURE: CT CHEST WO CONTRAST, DATE/TIME OF EXAM: 09/01/2022 5:41 PM, LOCATION [facility] INDICATION: J96.01: Acute respiratory failure with hypoxia (CMS/HCC) ADDITIONAL CLINICAL INFORMATION: Ordering Provider Reason For Exam: assess for RLL collapse per pulmrecs COMPARISON: Chest CT dated 08/22/2022. TECHNIQUE: CT of the chest was performed without contrast according to standard protocol. Findings: Evaluation of visceral and vascular structures is degraded due to lackof intravenous contrast administration. A right IJ catheter tip terminates in the superior cavoatrial junction. Lower Neck and Axillae: A 1.1 cm left thyroid hypoattenuating lesion is unchanged. Lungs: Bilateral groundglass opacities are decreased compared to the priorexam. There is atelectasis involving most of the right lower lobe. There is a lesser degree of middle lobe atelectasis. Mild atelectasis in the leftlung seen. Trace right pleural effusion, decreased. No left pleural effusion.No pneumothorax. Heart and Pericardium: The cardiac chambers are normal in size. Trace pericardial fluid. Atherosclerosis calcification of the coronary arteries and aorta areseen. Mediastinum and Heidi: No enlarged lymph nodes are present. Bones and Chest Wall: Bone windows demonstrate no suspicious lytic or blastic lesions. The visible osseous structures are intact. Degenerative changes of bilateral shoulders are seen. Upper Abdomen: Other than a small hiatal hernia, the visible portions of the upper abdominal organs are normal. Impression: 1.Atelectasis involving most of the right lower lobe. Lesser degree of middle lobe atelectasis. Mild left lung atelectasis. 2.Trace right pleural effusion, decreased. No left pleural effusion. > Dictated by Glendy Martínez MD (regional vice president surgical sales). IKevin MD have personally reviewed and interpreted this examination/study. > Interpreting Provider: Kevin Casas MD on 09/02/2022 11:00 AM Almaz Patel MD CT ORDERABLES * FL SWALLOWING FUNCTION STUDY (09/01/2022 10:00 AM CDT) Only the most recent of2 resultswithin the time period is included. Anatomical Region Laterality Modality Chest Radiographic Marychuy ging 09/01/2022 9:56 AM CDT Impressions 09/01/2022 3:47 PM CDT IMPRESSION: Modified barium swallow fluoroscopy as described. Please see detailed report from speech pathology staff. Fernando Hester MD have personally reviewed and interpreted this examination/study. > Interpreting Provider: Fernando Oseguera MD on 09/01/2022 3:47 PM Narrative 09/01/2022 3:47 PM CDT PROCEDURE: ??FL SWALLOWING FUNCTION STUDY, DATE/TIME OF EXAM: ??09/01/2022 9:22 AM, LOCATION ??[facility] INDICATION: J96.01: Acute respiratory failure with hypoxia (CMS/HCC) ADDITIONAL CLINICAL INFORMATION: Ordering Provider Reason For Exam: ??rule out aspiration COMPARISON: None. TECHNIQUE: Modified barium swallow fluoroscopy performed in conjunction with speech pathology staff. The speech pathologist administered varying thickness barium liquids and solids under direct Cine fluoroscopy. FINDINGS: Fluoroscopy provided for the purpose of speech pathology swallowing study. Please see speech pathology report for details. FLUOROSCOPY TIME: 132.8 seconds Procedure Note Fernando Oseguera MD - 09/01/2022 PROCEDURE: FL SWALLOWING FUNCTION STUDY, DATE/TIME OF EXAM: 09/01/2022 9:22 AM, LOCATION [facility] INDICATION: J96.01: Acute respiratory failure with hypoxia (CMS/HCC) ADDITIONAL CLINICAL INFORMATION: Ordering Provider Reason For Exam: rule out aspiration COMPARISON: None. TECHNIQUE: Modified barium swallow fluoroscopy performed in conjunction with speech pathology staff. The speech pathologist administered varying thickness barium liquids and solids under direct Cine fluoroscopy. FINDINGS: Fluoroscopy provided for the purpose of speech pathology swallowingstudy. Please see speech pathology report for details. FLUOROSCOPY TIME: 132.8 seconds IMPRESSION: Modified barium swallow fluoroscopy as described. Please see detailed report from speech pathology staff. I, Fernando Oseguera MD have personally reviewed and interpreted this examination/study. > Interpreting Provider: Fernando Oseguera MD on 09/01/2022 3:47 PM Almaz Patel MD FLUOROSCOPY ORDERA BLES * HEPATITIS B CORE ANTIBODY TOTAL (09/01/2022 7:06 AM CDT) HBc Antibody Total Non-reacti ve Non-reacti ve 09/01/2022 10:02 AM CDT [facility] Blood BLOOD SPECIMEN / Unknown Lab Venipuncture / Unknown 09/01/2022 7:06 AM CDT 09/01/2022 7:39 AM CDT Josh Harrell MD LAB - CHEMISTRY PATRICIA CASIANO [facility] [address] [place] [address], [facility] [phone] * FOLATE (09/01/2022 7:06 AM CDT) Folate 12.3 7.0 - 31.4 ng/mL 09/01/2022 10:17 AM CDT [facility] Blood BLOOD SPECIMEN / Unknown Lab Venipuncture / Unknown 09/01/2022 7:06 AM CDT 09/01/2022 7:40 AM CDT Almaz Patel MD LAB - CHEMISTRY OR DERABLES Performing Organization Address City/[facility]/ZIP Co de Phone Number [address] [address], [facility] [phone] * VITAMIN B12 (09/01/2022 7:06 AM CDT) Only the most recent of2 resultswithin the time period is included. Vitamin B12 665 213 - 816 pg/mL 09/01/2022 10:17 AM CDT [facility] Blood BLOOD SPECIMEN / Unknown Lab Venipuncture / Unknown 09/01/2022 7:06 AM CDT 09/01/2022 7:40 AM CDT Almaz Patel MD LAB - CHEMISTRY OR DERABLES Performing Organization Address City/[facility] Co de Phone Number [address] [address], [facility] [phone] * NOCTURNAL DESATURATION STUDY (08/31/2022 11:08 AM CDT) Impressions Artem Villa MD - 08/31/2022 11:08 AM CDT OVERNIGHT OXYMETRY STUDY Artem Villa MD There were a total of 9 desaturations overnight, The average SPO2 was 90.6% and the lowest SPO2 was 83%. The study lasted 7 hours 35 min and 10 seconds. The total duration of the SPO2 below 88% was 21 minutes and 40 seconds. Impression: 1. There were significant desaturations overnight. 2. Recommend oxygen supplementation during sleep and polysomnography study. Artem Villa MD ( Fellow) Division of Pulmonary, Critical Care, & Sleep Medicine [facility] 09/01/2022 , 2:00 PM Narrative Artem Villa MD - 08/31/2022 11:08 AM CDT LalaEstuardo RCP ? 08/31/2022 11:14 AM Nocturnal Oxygen Desaturation study set up and completed by Kerry Pete hourly shift RT. ??Patient on RA ?? (Device/FiO2 or liter flow/Settings/etc) during study. ??Results uploaded to [employer] [facility] and shared with Dr. Allen M.D., Dancing Instructor reading PFT's. ??Final report with interpretation will be posted in Results Review under Pulse Oximetry, Continuous . ?? Procedure Note Estuardo Lala RCP - 08/31/2022 11:08 AM CDT Images from the original note were not included. Nocturnal Oxygen Desaturation study set up and completed by Kerry Pete hourly shift RT. Patient on RA (Device/FiO2 or literflow/Settings/etc) during study. Results uploaded to [employer] and shared withDr. Allen M.D., Dancing Instructor reading PFT's. Final report withinterpretation will be posted in Results Review under Pulse Oximetry,Continuous . Jero Orozco MD RESPIRATORY THERAPY ORDERABLES * TRANSFUSE RED BLOOD CELL LEUKOREDUCED UNIT(S) (08/29/2022 2:00 PM CDT) Primo Maurice MD NURSING - BLOOD PROD TRANSFUSION * PREPARE (CROSSMATCH) RBC UNIT(S), 1 Units (08/29/2022 9:45 AM CDT) Only the most recent of2 resultswithin the time period is included. Unit Description AS1 LR PRBC [facility] Unit ABO A [facility] Unit Rh NEG [facility] Product Number R44 [facility] B LO[facility] B[facility] Unit Donor # [id number] [facility] Unit Status transfused [facility] Product Code [id number] [facility] Blood Type Barcode 0600 [facility] Expiration Date S BLOOD BANK LAB Blood Bank BLOOD SPECIMEN / Unknown 08/29/2022 7:00 AM CDT Primo Maurice MD LAB - BLOOD BANK ORD ERABLES [facility] [address] [place] [address], [place] [phone] * TYPE + SCREEN PANEL (08/29/2022 6:48 AM CDT) Only the most recent of2 resultswithin the time period is included. [facility] Antibody Screen NEG 7:39 AM CDT [facility] ABO Rh A NEG 08/29/2022 7:39 AM CDT [facility] Blood Bank BLOOD SPECIMEN / Unknown Venipuncture / Unknown 08/29/2022 6:48 AM CDT 08/29/2022 7:00 AM CDT Primo Maurice MD LAB - BLOOD BANK ORD ERABLES Performing Organization Address City/[facility]/ZIP Co de Phone Number [facility] [address] [place] [address], [place] [phone] * (ABNORMAL) GLUCOSE - POINT OF CARE (08/26/2022 11:48 PM CDT) Only the most recent of6 resultswithin the time period is included. [facility] Glucose WB/POC 148(H) 70 - 115 mg/dL 08/27/2022 4:21 AM CDT [facility] Specimen Type Cap Fingerstick 2021 4:21 AM CDT [facility] Blood BLOOD SPECIMEN / Unknown 08/26/2022 11:48 PM CDT 08/27/2022 4:21 AM CDT Ashvin Barber MD LAB - POINT OF CARE ORDERABLES Performing Organization Address City/[facility]/ZIP Co de Phone Number [address] [address], [place] [phone] * (ABNORMAL) POTASSIUM WHOLE BLD (08/25/2022 1:20 PM CDT) [facility] Potassium Whole Blood 3.4(L) 3.5 - 5.5 mmol/L 08/25/2022 1:31 PM CDT [facility] Blood WHOLE BLOOD SPECIMEN / Unknown Venipuncture / Unknown 08/25/2022 1:20 PM CDT 08/25/2022 1:23 PM CDT Jayna Masters MD LAB - CHEMISTRY PATRICIA CASIANO [facility] [address] [place] [address], [place] [phone] * MRSA DNA PCR (08/25/2022 1:18 PM CDT) [facility] MRSA DNA by PCR Not detected Not detected 08/25/2022 6:10 PM CDT [facility] MICROBIOLOGY Microbiology SPECIMEN FROM NASAL FOSSAE / Unknown Collection / Unknown 08/25/2022 1:18 PM CDT 08/25/2022 1:23 PM CDT Narrative [facility] MICROBIOLOG[facility] - 08/25/2022 6:10 PM CDT Methicillin-resistant Staphylococcus aureus (MRSA) DNA is not detected (presumed not colonized with MRSA). Héctor Silva MD LAB - MICROBIOLOGY O RDERABLES Performing Organization Address City/[facility]/ZIP Co de Phone Number [facility] MICROBIOLOGY [address] [place] [address], [facility] [phone] * IR CENTRAL LINE INSERT TUNNEL (08/25/2022 12:32 PM CDT) Anatomical Region Laterality Modality Chest, Upper Extremity X-Ray Ang iography 08/25/2022 12:5 5 PM CDT Impressions 08/25/2022 12:58 PM CDT IMPRESSION: Successful Right internal jugular tunneled central venous catheter placement. > Interpreting Provider: Caroline Ward MD on 08/25/2022 12:58 PM Narrative 08/25/2022 12:58 PM CDT PROCEDURE: ??IR CENTRAL LINE INSERT TUNNEL, DATE/TIME OF EXAM: ??08/25/2022 12:32 PM, LOCATION ??[facility] INDICATION: N18.30: Stage 3 chronic kidney disease, unspecified whether stage 3a or 3b CKD ([facility]) N17.9: Acute renal failure, unspecified acute renal failure type ([facility]) ADDITIONAL CLINICAL INFORMATION: Ordering Provider Reason For Exam: ??Dialysis Technologist Note: Additional: COMPARISON: None. FLUOROSCOPY DOSE: mGy Reference air kerma (ka,r). FLUOROSCOPY TIME: ??.6 minutes; Number of images: MEDICATIONS: None. ?? Contrast: None Complications: None immediate Findings and Technique: Prior to beginning the procedure, informed consent was obtained. A timeout was completed, including vital patient demographic information, procedure to be performed, as well as other standard information. The patient was placed supine on the fluoroscopy table. The Right neck and chest was prepped and draped in the standard sterile fashion. At this time, the Right internal jugular vein was documented to be patent via real-time ultrasound evaluation. An ultrasound image was saved and sent to PACS. The soft tissues of the Right neck were anesthetized with 1% lidocaine. The Right internal jugular vein was then accessed using a micropuncture kit. Real-time ultrasound visualization of vascular needle entry was utilized. A 0.035 wire was advanced through the micropuncture sheath and into the inferior vena cava. At this time, a skin exit site on the right chest wall was chosen and a subcutaneous tunnel anesthetized using 1% lidocaine. The catheter was tunneled from the skin exit site to the venotomy site. The micropuncture sheath was removed, and a peel-away sheath advanced over the wire and into the right atrium under fluoroscopic guidance. The wire and dilator of the peel-away sheath were removed. At this time, the 24cm 15.5F Duraflo dialysis catheter was advanced through the peel-away sheath and into the right atrium. The peel-away sheath was removed. The catheter was secured with 3-0 Nylon and stat lock, and a CHG dressing applied over the catheter. The existing RIJ trialysis catheter was removed after the completion of the procedure. Pressure was held over the exit site to achieve hemostasis, and a sterile dressing applied. Postprocedural radiograph demonstrated the absence of pneumothorax or other procedure-related complication. The catheter flushed and aspirated freely. The catheter was sutured to the skin at the exit site, and covered with a sterile bandage. The patient tolerated the procedure well. Monitored anaesthesia care was performed by a separate anaesthesia provider. ?? Procedure Note Caroline Ward MD - 08/25/2022 PROCEDURE: IR CENTRAL LINE INSERT TUNNEL, DATE/TIME OF EXAM:08/25/2022 12:32 PM, LOCATION [facility] INDICATION: N18.30: Stage 3 chronic kidney disease, unspecified whether stage 3a or3b CKD (CMS/HCC) N17.9: Acute renal failure, unspecified acute renal failure type([facility]) ADDITIONAL CLINICAL INFORMATION: Ordering Provider Reason For Exam: Dialysis Technologist Note: Additional: COMPARISON: None. FLUOROSCOPY DOSE: mGy Reference air kerma (ka,r). FLUOROSCOPY TIME: .6 minutes; Number of images: MEDICATIONS: None. Contrast: None Complications: None immediate Findings and Technique: Prior to beginning the procedure, informed consent was obtained. Atimeout was completed, including vital patient demographic information,procedure to be performed, as well as other standard information. The patient was placed supine on the fluoroscopy table. The Right neckand chest was prepped and draped in the standard sterile fashion. At this time, the Right internal jugular vein was documented to bepatent via real-time ultrasound evaluation. An ultrasound image was saved andsent to PACS. The soft tissues of the Right neck were anesthetized with 1% lidocaine. The Right internal jugular vein was then accessed using a micropuncture kit. Real-time ultrasound visualization of vascular needle entry was utilized. A 0.035 wire was advanced through the micropuncture sheath and into the inferior vena cava. At this time, a skin exit siteon the right chest wall was chosen and a subcutaneous tunnel anesthetized using 1% lidocaine. The catheter was tunneled from the skin exit site to the venotomy site. The micropuncture sheath was removed, and a peel-away sheath advanced over the wire and into the right atrium underfluoroscopic guidance. The wire and dilator of the peel-away sheath were removed. At this time, the 24cm 15.5F Duraflo dialysis catheter was advanced through the peel-away sheath and into the right atrium. The peel-away sheath was removed. The catheter was secured with 3-0 Nylon and stat lock, and aCHG dressing applied over the catheter. The existing RIJ trialysis catheter was removed after the completion ofthe procedure. Pressure was held over the exit site to achieve hemostasis,and a sterile dressing applied. Postprocedural radiograph demonstrated the absence of pneumothorax orother procedure-related complication. The catheter flushed and aspiratedfreely. The catheter was sutured to the skin at the exit site, and covered witha sterile bandage. The patient tolerated the procedure well. Monitored anaesthesia care was performed by a separate anaesthesia provider. IMPRESSION: Successful Right internal jugular tunneled central venous catheter placement. > Interpreting Provider: Caroline Ward MD on 08/25/2022 12:58 PM Héctor Silva MD IR ORDERABLES * HEPATITIS B SURFACE ANTIBODY QUANT (08/23/2022 8:22 PM CDT) Pathologist [facility] Hepatitis B Virus Surface Antibody 3.26 IU/L 08/25/2022 1:45 PM CDT [facility] ([facility]) Comment: The anti-HBs is less than 10 IU/L and is therefore negative. There is no evidence of recovery from hepatitis B infection or evidence of antibody response to HBV vaccination. An anti-HBs result greater than or equal to 10 IU/L indicates immunity. Reference Interval: anti-HBs 9.99 IU/L or less ....... Negative 10.00 IU/L or greater ... Positive Results greater than 1,000.00 IU/L are reported as greater than 1,000.00 IU/L. This assay should not be used for blood donor screening, associated re-entry protocols, or for screening Human Cell, Tissues and Cellular and Tissue-Based Products (HCT/P). Performed By: [facility] [address] [place] [address] Train Gateman: Rene Rodas MD, PhD Blood BLOOD SPECIMEN / Unknown Line Draw / Unknown 08/23/2022 8:22 PM CDT 08/23/2022 9:39 PM CDT Josh Harrell MD LAB - SEROLOGY ORDER JULISSA [facility] ([facility]) [address] [place] [address], [facility] * ECHO LIMITED OR FOLLOWUP (08/23/2022 9:34 AM CDT) Anatomical Region Laterality Modality Chest Echo 08/23/2022 9:13 AM CDT Narrative Procedure Note Catarina Dobbins MD - 08/23/2022 Héctor Silva MD ECHOCARDIOGRAPHY RAD IANT * LACTIC ACID BLOOD (08/22/2022 8:21 PM CDT) [facility] Lactic Acid-Stat 0.6 <=2.0 mmol/L 08/22/2022 8:52 PM CDT [facility] Blood BLOOD SPECIMEN / Unknown Venipuncture / Unknown 08/22/2022 8:21 PM CDT 08/22/2022 8:26 PM CDT Héctor Silva MD LAB - CHEMISTRY PATRICIA CASIANO [facility] Organization Address City/State/ZIP Co de Phone Number [address] [address], [facility] [phone] * (ABNORMAL) BLOOD GASES ART + COOX PANEL (08/22/2022 6:01 PM CDT) Only the most recent of3 resultswithin the time period is included. [facility] pH Arterial 7.29(L) 7.35 - 7.45 pH 08/22/2022 6:06 PM [facility] pO2 Arterial 66(L) 80 - 100 mmHg 08/22/2022 6:06 PM [facility] pCO2 Arterial 33(L) 35 - 45 mmHg 6:06 PM [facility] HCO3 Arterial 16(L) 20 - 30 mmol/l 08/22/2022 6:06 PM [facility] BE Arterial -9.8(L) -2.0 - 2.0 mmol/L 08/22/2022 6:06 PM [facility] Oxyhemoglobin Arterial 94.7 % 08/22/2022 6:06 PM [facility] Dexoyhemoglobin (HHB) % 3.3 % 08/22/2022 6:06 PM T [facility] Methemoglobin <0.8 0.0 - 2.0 % 08/22/2022 6:06 PM T [facility] Carboxyhemoglobin 1.7 0.0 - 2.0 % 2021 6:06 PM [facility] O2 Content Arterial 10.3 Interpret within clinical context ml/dL 08/22/2022 6:06 PM [facility] Hemoglobin by COOX 7.7(L) 12.0 - 15.6 g/dL 08/22/2022 6:06 PM [facility] O2 Saturation Arterial 97 90 - 100 % 08/22/2022 6:06 PM [facility] FI O2 Arterial 40.0 % 08/22/2022 6:06 PM T [facility] Blood, arterial ARTERIAL BLOOD SPECIMEN / Unknown Arterial Puncture / Unknown 08/22/2022 6:01 PM CDT 08/22/2022 6:04 PM CDT Narrative [facility] - 08/22/2022 6:06 PM CDT Carboxyhemoglobin Normal Concentration: Non-smokers: 0-2%; Smokers: 0-9%; Toxic: >20% Héctor Silva MD LAB - BLOOD GASES OR DERABLES Performing Organization Address City/State/[facility] Co de Phone Number [facility] [address] [place] [address], [facility] [phone] * XR ABDOMEN KUB PORTABLE (08/22/2022 3:42 PM CDT) Anatomical Region Laterality Modality Abdomen Radiographic Marychuy ging 08/22/2022 3:47 PM CDT Narrative 08/22/2022 9:37 PM CDT EXAMINATION: XR ABDOMEN KUB PORTABLE HISTORY: Z01.89: Encounter for imaging study to confirm nasogastric (NG) tube placement COMPARISON: None. FINDINGS/IMPRESSION: Enteric tube courses below the diaphragm with the tube coiled in the fundus and tip in the proximal body of the stomach. Report dictated by German Aponte MD (regional vice president surgical sales). I, Corey Min MD have personally reviewed and interpreted this examination/study. > Interpreting Provider: Corey Min MD on 08/22/2022 9:37 PM Procedure Note Nati Min MD - 08/22/2022 EXAMINATION: XR ABDOMEN KUB PORTABLE HISTORY: Z01.89: Encounter for imaging study to confirm nasogastric (NG) tube placement COMPARISON: None. FINDINGS/IMPRESSION: Enteric tube courses below the diaphragm with the tube coiled in thefundus and tip in the proximal body of the stomach. Report dictated by German Aponte MD (regional vice president surgical sales). Corey Hester MD have personally reviewed and interpreted this examination/study. > Interpreting Provider: Corey Min MD on 08/22/2022 9:37 PM Héctor Silva MD DIAGNOSTIC IMAGING O RDERABLES * XR CHEST 1VW (08/22/2022 8:31 AM CDT) Anatomical Region Laterality Modality Chest Radiographic Marychuy ging 08/23/2022 12:2 5 PM CDT Narrative 08/23/2022 12:27 PM CDT PROCEDURE: ??XR CHEST 1VW, DATE/TIME OF EXAM: ??08/23/2022 10:15 AM, LOCATION [facility] INDICATION: R06.02: SOB (shortness of breath) ADDITIONAL CLINICAL INFORMATION: Ordering Provider Reason For Exam: ??eval pulm edema Technologist Note: ??None. Additional: ??None. COMPARISON: Chest x-ray 08/21/2022. FINDINGS/IMPRESSION: Left apical chest tube in place is new since prior exam. Low lung volumes with bronchovascular crowding. Small left pleural effusion and adjacent atelectasis. Pulmonary vascular congestion present. Scattered airspace opacities left greater than right may represent atelectasis and/or airspace disease. No pneumothorax. No significant right pleural effusion. The cardiomediastinal silhouette is normal. The visible bony thorax is intact. > Interpreting Provider: Juwan Aceves on 08/23/2022 12:27 PM Procedure Note Juwan Aceves MD - 08/23/2022 PROCEDURE: XR CHEST 1VW, DATE/TIME OF EXAM: 08/23/2022 10:15 AM,LOCATION [facility] INDICATION: R06.02: SOB (shortness of breath) ADDITIONAL CLINICAL INFORMATION: Ordering Provider Reason For Exam: eval pulm edema Technologist Note: None. Additional: None. COMPARISON: Chest x-ray 08/21/2022. FINDINGS/IMPRESSION: Left apical chest tube in place is new since prior exam. Low lung volumes with bronchovascular crowding. Small left pleural effusion and adjacent atelectasis. Pulmonary vascular congestionpresent. Scattered airspace opacities left greater than right may represent atelectasis and/or airspace disease. No pneumothorax. No significantright pleural effusion. The cardiomediastinal silhouette is normal. Thevisible bony thorax is intact. > Interpreting Provider: Juwan Aceves on 08/23/2022 12:27 PM Ashvin Barber MD DIAGNOSTIC IMAGING O RDERABLES * (ABNORMAL) TROPONIN I (08/22/2022 7:47 AM CDT) Only the most recent of9 resultswithin the time period is included. Troponin I 0.037(H) <0.032 ng/mL 08/22/2022 8:49 AM CDT [facility] Blood BLOOD SPECIMEN / Unknown Lab Venipuncture / Unknown 08/22/2022 7:47 AM CDT 08/22/2022 8:16 AM CDT Héctor Silva MD LAB - CHEMISTRY PATRICIA CASIANO [facility] Organization Address City/State/[facility] Co de Phone Number [address] [address], [facility] [phone] * UREA NITROGEN URINE RANDOM (08/22/2022 3:52 AM CDT) Only the most recent of2 resultswithin the time period is included. Urea Nitrogen Random Urine 186 Not Established mg/dL 08/22/2022 4:26 AM CDT [facility] Urine URINE SPECIMEN OBTAINED BY CLEAN CATCH PROCEDURE / Unknown Collection / Unknown 08/22/2022 3:52 AM CDT 08/22/2022 3:58 AM CDT Héctor Silva MD LAB - URINE CHEMISTR Y ORDERABLES [address] [address], [facility] [phone] * OSMOLALITY URINE (08/22/2022 3:52 AM CDT) Only the most recent of3 resultswithin the time period is included. Osmolality Urine 309 50 - 1,200 mOsm/kg 08/22/2022 5:38 AM CDT [facility] Urine URINE SPECIMEN OBTAINED BY CLEAN CATCH PROCEDURE / Unknown Collection / Unknown 08/22/2022 3:52 AM CDT 08/22/2022 3:58 AM CDT Héctor Silva MD LAB - URINE CHEMISTR Y ORDERABLES Performing Organization Address [facility] Co de Phone Number [address] [address], [place] [phone] * LYTES (NA K CL) URINE RANDOM PANEL (08/22/2022 3:52 AM CDT) Sodium Urine 75 Not Established mmol/L 08/22/2022 4:26 AM CDT [facility] Potassium Urine 35.9 Not Established mmol/L 08/22/2022 4:26 AM CDT [facility] Chloride Random Urine 105 Not Established mmol/L 08/22/2022 4:26 AM CDT [facility] Urine URINE SPECIMEN OBTAINED BY CLEAN CATCH PROCEDURE / Unknown Collection / Unknown 08/22/2022 3:52 AM CDT 08/22/2022 3:58 AM CDT Héctor Silva MD LAB - URINE CHEMISTR Y ORDERABLES [address] [address], [place] [phone] * CREATININE URINE RANDOM (08/22/2022 3:52 AM CDT) Only the most recent of2 resultswithin the time period is included. Creatinine Urine 30 Not Established mg/dL 08/22/2022 4:26 AM CDT [facility] Urine URINE SPECIMEN OBTAINED BY CLEAN CATCH PROCEDURE / Unknown Collection / Unknown 08/22/2022 3:52 AM CDT 08/22/2022 3:58 AM CDT Héctor Silva MD LAB - URINE CHEMISTR Y ORDERABLES Performing Organization Address City/[facility]/ZIP Co de Phone Number [address] [address], [facility] [phone] * SODIUM URINE RANDOM (08/21/2022 12:04 PM CDT) Only the most recent of2 resultswithin the time period is included. Sodium Urine 25 Not Established mmol/L 08/21/2022 12:33 PM CDT [facility] Urine URINE SPECIMEN OBTAINED BY CLEAN CATCH PROCEDURE / Unknown Collection / Unknown 08/21/2022 12:04 PM CDT 08/21/2022 12:10 PM CDT Héctor Silva MD LAB - URINE CHEMISTR Y ORDERABLES Performing Organization Address City/[facility] Co de Phone Number [address] [address], [facility] [phone] * LYTES (NA K) URINE RANDOM PANEL (08/21/2022 12:04 PM CDT) Only the most recent of2 resultswithin the time period is included. Sodium Urine 25 Not Established mmol/L 08/21/2022 12:33 PM CDT [facility] Potassium Urine 52.2 Not Established mmol/L 08/21/2022 12:33 PM CDT [facility] Urine URINE SPECIMEN OBTAINED BY CLEAN CATCH PROCEDURE / Unknown Collection / Unknown 08/21/2022 12:04 PM CDT 08/21/2022 12:10 PM CDT Héctor Silva MD LAB - URINE CHEMISTR Y ORDERABLES [facility] [address] [place] [address], [facility] [phone] * (ABNORMAL) D-DIMER (08/21/2022 11:23 AM CDT) D-Dimer Quantitative 3.06(H) <=0.50 mcg/mL FEU 08/21/2022 11:59 AM CDT [facility] Comment: In the absence of clinical symptoms, a value less than or equal to 0.5 mcg/mL FEU significantly decreases the probability of PE/DVT (negative predictive value >95%). 1 mcg/mL FEU = 1 Fibrinogen Equivalent Unit (approximates 0.5 mcg/ml of D- Dimer). ?ISTH DIAGNOSTIC SCORING SYSTEM FOR DIC ?Score ?0 ? 1 ? 2 ?3 ?? Platelet Count(x10^3/uL) ?> 100 ?? < 100 ?? < 50 ?N/A PT Prolongation above ? upper limit of normal ?0-3 ? 3-6 ? > 6 ?N/A range (seconds) ? Fibrinogen (mg/dL) ?> 100 ?? < 100 ?N/A ?N/A D-Dimer (mcg/mL FEU) ? < 0.50 ?N/A ? 0.50-5.0 ??> 5 Calculate Cumulative Score: > or = 5 :compatible with overt DIC ? < 5 :suggestive for non-overt DIC N/A = Non applicable Reference: Br. J. Haematol. 145:24-33,2009. Blood BLOOD SPECIMEN / Unknown Lab Venipuncture / Unknown 08/21/2022 11:23 AM CDT 08/21/2022 11:31 AM CDT Héctor Silva MD LAB - COAGULATION OR DERABLES [facility] [address] [place] [address], [place] [phone] * PROCALCITONIN LEVEL (08/20/2022 12:44 PM CDT) PROCALCITONIN 0.10 <=0.10 ng/mL 08/20/2022 1:56 PM CDT [facility] Blood BLOOD SPECIMEN / Unknown Lab Venipuncture / Unknown 08/20/2022 12:44 PM CDT 08/20/2022 12:47 PM CDT Narrative [facility] - 08/20/2022 1:56 PM CDT The change in procalcitonin (PCT) concentration over time provides support in decision making on antibiotic discontinuation for suspected or confirmed septic patients. Follow-up samples should be tested once every 1-2 days based upon physician discretion taking into account the patient? s evolution and progress. Consider discontinuation of ??antibiotic therapy ??if the PCT current ??is <= 0.5 ng/mL or if the delta PCT is > 80%. ??Duration of antibiotics should not be determined solely on PCT; established guidelines for the indication should be followed. ? PCT peak: ??Highest observed PCT concentration ? PCT current: Most recent PCT concentration ? Calculate delta PCT using the following equation: ?Delta PCT ??= ?? PCT Peak ? PCT current ??X 100% ? PCT Peak The Change in Procalcitonin Calculator is available at [email or web address] ?? If clinical picture has not improved and PCT remains high, reevaluate and consider treatment failure or other causes. Héctor Silva MD LAB - CHEMISTRY PATRICIA CASIANO Performing Organization Address City/State/[facility] Co de Phone Number [facility] [address] [id number] [phone] * US RETROPERITONEAL COMPLETE (08/20/2022 11:34 AM CDT) Anatomical Region Laterality Modality Abdomen Ultrasound 08/20/2022 11:4 1 AM CDT Impressions 08/20/2022 1:22 PM CDT IMPRESSION: 1.Normal renal size. No evidence of nephrolithiasis, hydronephrosis, or solid renal mass. 2.1.5 x 1.1 cm simple cyst within the upper pole of the right kidney. 3.Right pleural effusion. > Dictated by Xiao Hamm MD (regional vice president surgical sales). Corey Hester MD have personally reviewed and interpreted this examination/study. > Interpreting Provider: Corey Min MD on 08/20/2022 1:22 PM Narrative 08/20/2022 1:22 PM CDT PROCEDURE: ??US RETROPERITONEAL COMPLETE, DATE/TIME OF EXAM: ??08/20/2022 11:34 AM, LOCATION ??[facility] INDICATION: E87.1: Hyponatremia ADDITIONAL CLINICAL INFORMATION: Ordering Provider Reason For Exam: ??renal us COMPARISON: None. FINDINGS: Right kidney: 9.2 x 4.6 x 4 cm Left kidney: 9.9 x 4.1 x 4.8 cm The renal parenchymal echogenicity is normal. There is a 1.5 x 1.1 x 1 cm simple cyst within the upper pole of the right kidney. There is no evidence of a solid renal mass, renal calculi, or hydronephrosis. Blood flow is seen within the renal arteries and veins. The bladder is distended and appears normal. A right pleural effusion is incidentally noted. Procedure Note Nati Min MD - 08/20/2022 PROCEDURE: US RETROPERITONEAL COMPLETE, DATE/TIME OF EXAM: 08/20/2022 11:34 AM, LOCATION [facility] INDICATION: E87.1: Hyponatremia ADDITIONAL CLINICAL INFORMATION: Ordering Provider Reason For Exam: renal us COMPARISON: None. FINDINGS: Right kidney: 9.2 x 4.6 x 4 cm Left kidney: 9.9 x 4.1 x 4.8 cm The renal parenchymal echogenicity is normal. There is a 1.5 x 1.1 x 1cm simple cyst within the upper pole of the right kidney. There is noevidence of a solid renal mass, renal calculi, or hydronephrosis. Blood flow isseen within the renal arteries and veins. The bladder is distended andappears normal. A right pleural effusion is incidentally noted. IMPRESSION: 1.Normal renal size. No evidence of nephrolithiasis, hydronephrosis, or solid renal mass. 2.1.5 x 1.1 cm simple cyst within the upper pole of the right kidney. 3.Right pleural effusion. > Dictated by Xiao Hamm MD (regional vice president surgical sales). ICorey MD have personally reviewed and interpreted this examination/study. > Interpreting Provider: Corey Min MD on 08/20/2022 1:22 PM Héctor Silva MD US ORDERABLES * TSH REFLEX FREE T4 (08/20/2022 2:50 AM CDT) TSH 4.654 0.350 - 4.940 uIU/mL 08/20/2022 3:48 AM CDT [facility] Blood BLOOD SPECIMEN / Unknown Lab Venipuncture / Unknown 08/20/2022 2:50 AM CDT 08/20/2022 3:00 AM CDT Héctor Silva MD LAB - CHEMISTRY PATRICIA CASIANO [facility] Organization Address City/State/[facility] Co de Phone Number [facility] [address] [place] [phone], [facility] [phone] * TRIGLYCERIDES BLOOD (08/20/2022 2:50 AM CDT) Triglycerides 64 <150 mg/dL 08/20/2022 3:33 AM CDT [facility] Comment: ATP III Classification of Triglycerides: ?<150 mg/dL: ??Normal ? 150 - 199 mg/dL: ??Borderline High ? 200 - 400 mg/dL: ??High ?>500 mg/dL: ??Very High Blood BLOOD SPECIMEN / Unknown Lab Venipuncture / Unknown 08/20/2022 2:50 AM CDT 08/20/2022 3:00 AM CDT Héctor Silva MD LAB - CHEMISTRY PATRICIA CASIANO Performing Organization Address City/[facility]/ZIP Co de Phone Number [facility] [address] [place] [phone], [place] [phone] * OSMOLALITY BLOOD (08/20/2022 2:50 AM CDT) Osmolality 289 270 - 300 mOsm/kg 08/20/2022 4:11 AM CDT [facility] Blood BLOOD SPECIMEN / Unknown Lab Venipuncture / Unknown 08/20/2022 2:50 AM CDT 08/20/2022 3:00 AM CDT Héctor Silva MD LAB - CHEMISTRY PATRICIA CASIANO Performing Organization Address City/[facility]/ZIP Co de Phone Number [address] [address], [place] [phone] * (ABNORMAL) URINALYSIS REFLEX TO MICROSCOPIC NO CULTURE (08/19/2022 1:00 PM CDT) Color UA Yellow Straw, Yellow 08/22/2022 3:46 PM CDT [facility] Clarity UA Slt Cloudy(A) Clear 08/22/2022 3:46 PM CDT [facility] Specific [place] UA 1.011 1.005 - 1.030 08/22/2022 3:46 PM CDT [facility] pH UA 5.0 5.0 - 8.0 pH 08/22/2022 3:46 PM CDT [facility] Protein UA 2+(A) Negative 08/22/2022 3:46 PM CDT [facility] Glucose UA Negative Negative 08/22/2022 3:46 PM CDT [facility] Ketone UA Negative Negative 08/22/2022 3:46 PM CDT [facility] Bilirubin UA Negative Negative 08/22/2022 3:46 PM [facility] Blood UA Negative Negative 08/22/2022 3:46 PM [facility] Nitrite UA Negative Negative 08/22/2022 3:46 PM [facility] Leukocyte Esterase 2+(A) Negative 08/22/2022 3:46 PM [facility] Urobilinogen UA Negative Negative mg/dL 08/22/2022 3:46 PM [facility] RBC UA 0-2 None Seen, 0-2, 3-5 /HPF 08/22/2022 3:46 PM T [facility] Comment:This is an appended report. These results have been appended to a previously final verified report. WBC UA 11-20(A) None Seen, 0-5 /HPF 08/22/2022 3:46 PM [facility] Comment:This is an appended report. These results have been appended to a previously final verified report. Bacteria UA Trace(A) None /HPF 08/22/2022 3:46 PM [facility] Comment:This is an appended report. These results have been appended to a previously final verified report. Squamous Epithelial Cells UA 0-2 None Seen, 0-2, 3-5 /HPF 08/22/2022 3:46 PM T [facility] Comment:This is an appended report. These results have been appended to a previously final verified report. Urine URINE SPECIMEN OBTAINED BY CLEAN CATCH PROCEDURE / Unknown Collection / Unknown 08/19/2022 1:00 PM CDT 08/19/2022 1:04 PM CDT Narrative [facility] - 08/22/2022 3:46 PM CDT Héctor Silva MD LAB - URINALYSIS ORD ERABLES [facility] [address] [place] [address], [facility] [phone] * (ABNORMAL) PROTEIN CREATININE RATIO URINE RANDOM PNL (08/19/2022 1:00 PM CDT) Protein Urine 163 Not Established mg/dL 08/19/2022 1:41 PM [facility] Creatinine Urine 96 Not Established mg/dL 08/19/2022 1:41 PM [facility] Protein/Creati nine Ratio Urine 1.70(H) <0.10 08/19/2022 1:41 PM [facility] Urine URINE SPECIMEN OBTAINED BY CLEAN CATCH PROCEDURE / Unknown Collection / Unknown 08/19/2022 1:00 PM CDT 08/19/2022 1:04 PM CDT Héctor Silva MD LAB - URINE CHEMISTR Y ORDERABLES Performing Organization Address City/[facility]/ZIP Co de Phone Number [address] [address], [facility] [phone] * (ABNORMAL) PROTEIN ELECTROPHORESIS URINE TIMED (08/19/2022 1:00 PM CDT) Interpretation Urine PE See Comment Normal Pattern 08/26/2022 10:48 PM [facility] Comment: Urine protein electrophoresis shows bands corresponding to albumin and transferrin along with small amounts of other nonspecific proteinuria. ?? No monoclonal immunoglobulins detected. Terry Burnham PhD, [facility] Clinical [employer] sales planning coordinator Protein Urine 146 Not Established mg/dL 08/26/2022 10:48 PM [facility] Volume Timed Urine 489 mL 2021 10:48 PM [facility] Collection Time Timed Urine 8 Hrs 08/26/2022 10:48 PM [facility] Protein 24 Hour Urine 714(H) 77 - 197 mg/24 hrs 08/26/2022 10:48 PM [facility] Protein Total Timed Urine 714 Not established for collection periods other than 24 Hrs. mg/X hrs 08/26/2022 10:48 PM [facility] Urine TIMED URINE SPECIMEN / Unknown Timed Urine Volume Measurement / Unknown 08/19/2022 1:00 PM CDT 08/19/2022 1:04 PM CDT Héctor Silva MD LAB - URINE CHEMISTR Y ORDERABLES [address] [place] [address], [facility] [phone] * IMMUNOFIXATION BLOOD (08/19/2022 10:56 AM CDT) Immunofixation Serum Normal Pattern Normal Pattern 08/26/2022 10:48 PM CDT [facility] Comment: No monoclonal immunoglobulin detected by serum immunosubtraction. Terry Burnham PhD, [facility] Clinical [employer] sales planning coordinator *The electrophoresis pattern and the interpretation have been reviewed and verified by the teaching physician. Blood BLOOD SPECIMEN / Unknown Venipuncture / Unknown 08/19/2022 10:56 AM CDT 08/19/2022 11:02 AM CDT Héctor Silva MD LAB - CHEMISTRY PATRICIA CASIANO [address] [address], [facility] [phone] * (ABNORMAL) PROTEIN ELECTROPHORESIS BLOOD (08/19/2022 10:56 AM CDT) Interpretation Serum PE Normal Pattern Normal Pattern 08/26/2022 10:48 PM CDT [facility] Comment: Serum capillary electrophoresis shows characteristic bands corresponding to albumin, alpha and beta globulins and polyclonal immunoglobulins. No monoclonal immunoglobulin detected. Non-secretory myeloma (NSM) and light chain only myeloma cannot be excluded based on this result. ??Recommend serum free light chain measurements for complete evaluation of plasma cell disorders. ?? Fannie Vivas MD Resident ??[id number], Pathology *The electrophoresis pattern and the interpretation have been reviewed and verified by the teaching physician. Protein Total 4.9(L) 6.0 - 8.3 g/dL 08/26/2022 10:48 PM CDT [facility] Albumin 3.1(L) 3.3 - 5.6 g/dL 08/26/2022 10:48 PM CDT [facility] Alpha-1 Globulins 0.3 0.2 - 0.4 g/dL 08/26/2022 10:48 PM CDT [facility] Alpha-2 Globulins 0.7 0.5 - 1.0 g/dL 08/26/2022 10:48 PM CDT [facility] Beta Globulins 0.5(L) 0.6 - 1.1 g/dL 08/26/2022 10:48 PM CDT [facility] Gamma Globulins 0.3(L) 0.6 - 1.6 g/dL 08/26/2022 10:48 PM CDT [facility] Blood BLOOD SPECIMEN / Unknown Venipuncture / Unknown 08/19/2022 10:56 AM CDT 08/19/2022 11:02 AM CDT Héctor Silva MD LAB - CHEMISTRY PATRICIA CASIANO [address] [address], [place] [phone] * TRANSFUSE RED BLOOD CELL LEUKOREDUCED UNIT(S) (08/19/2022 2:37 AM CDT) Aroldo Rivera GENERAL ADMINISTRATOR-[facility] - BLOOD AK OD TRANSFUSION * BLOOD TYPE VERIFICATION (08/18/2022 7:52 PM CDT) ABO Rh A NEG 08/18/2022 9:1 4 PM CDT [facility] Blood Bank BLOOD SPECIMEN / Unknown Lab Venipuncture / Unknown 08/18/2022 7:52 PM CDT 08/18/2022 7:58 PM CDT Katherine Lai MD LAB - BLOOD BANK ORD ELICEO [facility] [address] [place] [address], [place] [phone] * (ABNORMAL) PROTEIN TOTAL BLOOD (08/17/2022 4:05 AM CDT) Protein Total 5.1(L) 6.0 - 8.3 g/dL 08/17/2022 2:34 PM CDT [facility] Blood BLOOD SPECIMEN / Unknown Lab Venipuncture / Unknown 08/17/2022 4:05 AM CDT 08/17/2022 4:20 AM CDT Héctor Silva MD LAB - CHEMISTRY PATRICIA CASIANO [address] [address], [facility] [phone] * (ABNORMAL) ALBUMIN BLOOD (08/17/2022 4:05 AM CDT) Albumin 2.8(L) 3.4 - 5.0 g/dL 08/17/2022 2:34 PM CDT [facility] Blood BLOOD SPECIMEN / Unknown Lab Venipuncture / Unknown 08/17/2022 4:05 AM CDT 08/17/2022 4:20 AM CDT Aroldo Rivera GENERAL ADMINISTRATOR[facility] LAB - CHEMISTRY OR DERABLES Performing Organization Address [facility]/ZIP Co de Phone Number [address] [address], [facility] [phone] * (ABNORMAL) URINALYSIS W/MICROSCOPIC NO CULTURE (08/16/2022 9:42 AM CDT) Only the most recent of2 resultswithin the time period is included. Color UA Yellow Straw, Yellow 08/16/2022 9:57 AM CDT [facility] Clarity UA Slt Cloudy(A) Clear 08/16/2022 9:57 AM CDT [facility] Specific [place] UA 1.014 1.005 - 1.030 08/16/2022 9:57 AM CDT [facility] pH UA 6.0 5.0 - 8.0 pH 08/16/2022 9:57 AM CDT [facility] Protein UA 3+(A) Negative 08/16/2022 9:57 AM CDT [facility] Glucose UA Negative Negative 08/16/2022 9:57 AM CDT [facility] Ketone UA Negative Negative 08/16/2022 9:57 AM CDT [facility] Bilirubin UA Negative Negative 08/16/2022 9:57 AM CDT [facility] Blood UA Negative Negative 08/16/2022 9:57 AM CDT [facility] Nitrite UA Negative Negative 08/16/2022 9:57 AM CDT [facility] Leukocyte Esterase Negative Negative 08/16/2022 9:57 AM CDT [facility] Urobilinogen UA Negative Negative mg/dL 08/16/2022 9:57 AM CDT [facility] RBC UA 0-2 None Seen, 0-2, 3-5 /HPF 08/16/2022 9:57 AM CDT [facility] WBC UA 0-5 None Seen, 0-5 /HPF 08/16/2022 9:57 AM CDT [facility] Bacteria UA Trace(A) None /HPF 08/16/2022 9:57 AM CDT [facility] Squamous Epithelial Cells UA None Seen None Seen, 0-2, 3-5 /HPF 08/16/2022 9:57 AM CDT [facility] Hyaline Casts UA 0-2 None Seen, 0-2 /LPF 08/16/2022 9:57 AM CDT [facility] Urine URINE SPECIMEN OBTAINED BY SINGLE CATHETERIZATION OF URINARY BLADDER / Unknown Collection / Unknown 08/16/2022 9:42 AM CDT 08/16/2022 9:47 AM CDT Narrative [facility] - 08/16/2022 9:57 AM CDT Héctor Silva MD LAB - URINALYSIS ORD ERABLES [facility] [address] [place] [address], [facility] [phone] * ECHO COMPLETE W BUBBLE STUDY (08/16/2022 9:30 AM CDT) Anatomical Region Laterality Modality Chest Echo 08/16/2022 8:56 AM CDT Narrative Procedure Note Catarina Dobbins MD - 08/16/2022 Héctor Silva MD ECHOCARDIOGRAPHY RAD IANT * HEMOGLOBIN A1C (08/16/2022 12:44 AM CDT) Only the most recent of2 resultswithin the time period is included. Hemoglobin A1c 5.4 <=5.6 % 08/16/2022 10:18 AM CDT [facility] Estimated Average Glucose 108 mg/dL 08/16/2022 10:18 AM CDT [facility] Comment: HbA1c Interpretation: Normal : < 5.7% Pre-diabetes: 5.7-6.4% Diabetes: Equal to or greater than 6.5% Test results diagnostic of diabetes should be repeated for confirmation. Treatment target values recommended by ADA and other clinical organizations should be used to evaluate metabolic control in patients. Reference: [place] Diabetes Association, Standards of Care in Diabetes -2020 In patients 70 years and older consider HbA1c target range of 7.0-7.5% (Reference: Celso Elizabeth et al. JAMDA. 2012) The Sebia assay for the measurement of HbA1c is a National Glycohemoglobin Standardization Program (NGSP) certified method. 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 No significant mass effect. No supratentorial hydrocephalus. 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 3.Otherwise, no large arterial occlusions or significant stenoses identified in the head. 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 Transferred to [facility] for further management. CONTRAST: ??GADOTERATE MEGLUMINE 0.5 MMOL/ML IV SSM SO:15 mL EXAMINATION: 1. Magnetic resonance imaging (MRI) of the brain without and with contrast 2. Magnetic resonance angiography (MRA) of the head without contrast HISTORY: I61.9: Hemorrhagic stroke (CMS/HCC) TECHNIQUE: MRI of the brain was performed prior to and following the uneventful administration of 15 mL intravenous DOTAREM contrast according to standard protocol. MR arteriography of the head was performed without contrast utilizing time of flight technique. COMPARISON: Outside facility CT of the head from 08/15/2022 FINDINGS: Brain: Small area of susceptibility artifact is noted in the right posterior prem measuring approximately 1.4 x 0.9 cm which correlates with small area of hyperdensity seen on the prior CT and likely represent small volume right pontine hemorrhage. There is mild surrounding FLAIR hyperintensity compatible with vasogenic edema. No evidence of acute cerebral infarction is seen. There is mild cerebral volume loss with associated ex vacuo ventricular dilatation. No mass effect or midline shift is seen. Periventricular, subcortical, and pontine white matter FLAIR hyperintensities likely represent sequelae of chronic small vessel ischemic disease. No enhancing lesions are identified. Mild thinning of the corpus callosum. The corpus callosum and sella appear appear otherwise grossly unremarkable. The posterior fossa, brainstem, and craniocervical junction appear normal. The visualized portions of the orbits, paranasal sinuses, and mastoids appear normal. There is a trish bullosa of the right middle turbinate. Normal flow voids are demonstrated in the carotid arteries and basilar artery. The calvarium and visualized cervical spine appear normal. Angiographic findings: There is atherosclerotic disease involving the distal internal carotid arteries without significant focal stenosis. Fusiform dilation of the right internal carotid artery terminus measuring up to 6.7 mm, (series 13, image 9), grossly similar to the prior CT results. The anterior and middle cerebral arteries appear normal. The right vertebral artery is dominant. The femoral artery is small in caliber. There is atherosclerotic disease involving the distal vertebral arteries without significant focal stenosis. The basilar artery and posterior cerebral arteries appear normal with origin of the right posterior cerebral artery. There is a small left P-comm. Otherwise, no aneurysms, vascular occlusions, or intracranial stenoses are identified. Procedure Note Kaylie Doa MD - 08/16/2022 PROCEDURE: MRI BRAIN WWO CONTRAST, MRI ANGIO BRAIN ARTERIAL WO CONT, DATE/TIME OF EXAM: 08/15/2022 10:25 PM, LOCATION [facility] INDICATION: I61.9: Hemorrhagic stroke (CMS/HCC) ADDITIONAL CLINICAL INFORMATION: Ordering Provider Reason For Exam: Hemiorrhagic stroke (accession [id number]), vascular malformation (accession [id number]) Technologist Note: Does the patient have metal implants or stents?->No Additional: Kirsty Gutierrez a 81 year old F who developed sudden on nausea and vomiting on 08/15. Went to an OSH where CT head showedpontine ICH. Transferred to [facility] for further management. CONTRAST: GADOTERATE MEGLUMINE 0.5 MMOL/ML IV SSM SO:15 mL EXAMINATION: 1. Magnetic resonance imaging (MRI) of the brain without and withcontrast 2. Magnetic resonance angiography (MRA) of the head without contrast HISTORY: I61.9: Hemorrhagic stroke (CMS/HCC) TECHNIQUE: MRI of the brain was performed prior to and following the uneventful administration of 15 mL intravenous DOTAREM contrastaccording to standard protocol. MR arteriography of the head was performed without contrast utilizing time of flight technique. COMPARISON: Outside facility CT of the head from 08/15/2022 FINDINGS: Brain: Small area of susceptibility artifact is noted in the right posteriorpons measuring approximately 1.4 x 0.9 cm which correlates with small area of hyperdensity seen on the prior CT and likely represent small volumeright pontine hemorrhage. There is mild surrounding FLAIR hyperintensity compatible with vasogenic edema. No evidence of acute cerebralinfarction is seen. There is mild cerebral volume loss with associated ex vacuo ventricular dilatation. No mass effect or midline shift is seen. Periventricular, subcortical, and pontine white matter FLAIR hyperintensities likely represent sequelae of chronic small vesselischemic disease. No enhancing lesions are identified. Mild thinning of thecorpus callosum. The corpus callosum and sella appear appear otherwise grossly unremarkable. The posterior fossa, brainstem, and craniocervicaljunction appear normal. The visualized portions of the orbits, paranasal sinuses, and mastoids appear normal. There is a trish bullosa of the right middle turbinate. Normal flow voids are demonstrated in the carotid arteries and basilar artery. The calvarium and visualized cervical spine appear normal. Angiographic findings: There is atherosclerotic disease involving the distal internal carotid arteries without significant focal stenosis. Fusiform dilation of theright internal carotid artery terminus measuring up to 6.7 mm, (series 13,image 9), grossly similar to the prior CT results. The anterior and middle cerebral arteries appear normal. The right vertebral artery is dominant. The femoral artery is small in caliber. There is atherosclerotic disease involving the distal vertebral arteries without significant focalstenosis. The basilar artery and posterior cerebral arteries appear normal withfetal origin of the right posterior cerebral artery. There is a small left P-comm. Otherwise, no aneurysms, vascular occlusions, or intracranial stenoses are identified. IMPRESSION: 1.Redemonstration of small right pontine hemorrhage with mildsurrounding vasogenic edema. No significant mass effect. No supratentorial hydrocephalus. 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 3.Otherwise, no large arterial occlusions or significant stenoses identified in the head. 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 No significant mass effect. No supratentorial hydrocephalus. 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 3.Otherwise, no large arterial occlusions or significant stenoses identified in the head. > Interpreting Provider: Kaylie Dao MD on 08/16/2022 10:32 AM Narrative 08/16/2022 10:32 AM CDT PROCEDURE: ??MRI BRAIN WWO CONTRAST, MRI ANGIO BRAIN ARTERIAL WO CONT, DATE/TIME OF EXAM: ??08/15/2022 10:25 PM, LOCATION ??[facility] INDICATION: I61.9: Hemorrhagic stroke (CMS/HCC) ADDITIONAL CLINICAL INFORMATION: Ordering Provider Reason For Exam: ??Hemiorrhagic stroke (accession [id number]), vascular malformation (accession [id number]) Technologist Note: ??Does the patient have metal implants or stents?->No Additional: ??Kirsty Gutierrez a 81 year old F who developed sudden on nausea and vomiting on 08/15. 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 Transferred to [facility] for further management. CONTRAST: ??GADOTERATE MEGLUMINE 0.5 MMOL/ML IV SSM SO:15 mL EXAMINATION: 1. Magnetic resonance imaging (MRI) of the brain without and with contrast 2. Magnetic resonance angiography (MRA) of the head without contrast HISTORY: I61.9: Hemorrhagic stroke (CMS/HCC) TECHNIQUE: MRI of the brain was performed prior to and following the uneventful administration of 15 mL intravenous DOTAREM contrast according to standard protocol. MR arteriography of the head was performed without contrast utilizing time of flight technique. COMPARISON: Outside facility CT of the head from 08/15/2022 FINDINGS: Brain: Small area of susceptibility artifact is noted in the right posterior perm measuring approximately 1.4 x 0.9 cm which correlates with small area of hyperdensity seen on the prior CT and likely represent small volume right pontine hemorrhage. There is mild surrounding FLAIR hyperintensity compatible with vasogenic edema. No evidence of acute cerebral infarction is seen. There is mild cerebral volume loss with associated ex vacuo ventricular dilatation. No mass effect or midline shift is seen. Periventricular, subcortical, and pontine white matter FLAIR hyperintensities likely represent sequelae of chronic small vessel ischemic disease. No enhancing lesions are identified. Mild thinning of the corpus callosum. The corpus callosum and sella appear appear otherwise grossly unremarkable. The posterior fossa, brainstem, and craniocervical junction appear normal. The visualized portions of the orbits, paranasal sinuses, and mastoids appear normal. There is a trish bullosa of the right middle turbinate. Normal flow voids are demonstrated in the carotid arteries and basilar artery. The calvarium and visualized cervical spine appear normal. Angiographic findings: There is atherosclerotic disease involving the distal internal carotid arteries without significant focal stenosis. Fusiform dilation of the right internal carotid artery terminus measuring up to 6.7 mm, (series 13, image 9), grossly similar to the prior CT results. The anterior and middle cerebral arteries appear normal. The right vertebral artery is dominant. The femoral artery is small in caliber. There is atherosclerotic disease involving the distal vertebral arteries without significant focal stenosis. The basilar artery and posterior cerebral arteries appear normal with origin of the right posterior cerebral artery. There is a small left P-comm. Otherwise, no aneurysms, vascular occlusions, or intracranial stenoses are identified. Procedure Note Kaylie Dao MD - 08/16/2022 PROCEDURE: MRI BRAIN WWO CONTRAST, MRI ANGIO BRAIN ARTERIAL WO CONT, DATE/TIME OF EXAM: 08/15/2022 10:25 PM, LOCATION [facility] INDICATION: I61.9: Hemorrhagic stroke (CMS/HCC) ADDITIONAL CLINICAL INFORMATION: Ordering Provider Reason For Exam: Hemiorrhagic stroke (accession [id number]), vascular malformation (accession [id number]) Technologist Note: Does the patient have metal implants or stents?->No Additional: Kirsty Gutierrez a 81 year old F who developed sudden on nausea and vomiting on 08/15. Went to an OSH where CT head showedpontine ICH. Transferred to [facility] for further management. CONTRAST: GADOTERATE MEGLUMINE 0.5 MMOL/ML IV [facility]SM SO:15 mL EXAMINATION: 1. Magnetic resonance imaging (MRI) of the brain without and withcontrast 2. Magnetic resonance angiography (MRA) of the head without contrast HISTORY: I61.9: Hemorrhagic stroke (CMS/HCC) TECHNIQUE: MRI of the brain was performed prior to and following the uneventful administration of 15 mL intravenous DOTAREM contrastaccording to standard protocol. MR arteriography of the head was performed without contrast utilizing time of flight technique. COMPARISON: Outside facility CT of the head from 08/15/2022 FINDINGS: Brain: Small area of susceptibility artifact is noted in the right posteriorpons measuring approximately 1.4 x 0.9 cm which correlates with small area of hyperdensity seen on the prior CT and likely represent small volumeright pontine hemorrhage. There is mild surrounding FLAIR hyperintensity compatible with vasogenic edema. No evidence of acute cerebralinfarction is seen. There is mild cerebral volume loss with associated ex vacuo ventricular dilatation. No mass effect or midline shift is seen. Periventricular, subcortical, and pontine white matter FLAIR hyperintensities likely represent sequelae of chronic small vesselischemic disease. No enhancing lesions are identified. Mild thinning of thecorpus callosum. The corpus callosum and sella appear appear otherwise grossly unremarkable. The posterior fossa, brainstem, and craniocervicaljunction appear normal. The visualized portions of the orbits, paranasal sinuses, and mastoids appear normal. There is a trish bullosa of the right middle turbinate. Normal flow voids are demonstrated in the carotid arteries and basilar artery. The calvarium and visualized cervical spine appear normal. Angiographic findings: There is atherosclerotic disease involving the distal internal carotid arteries without significant focal stenosis. Fusiform dilation of theright internal carotid artery terminus measuring up to 6.7 mm, (series 13,image 9), grossly similar to the prior CT results. The anterior and middle cerebral arteries appear normal. The right vertebral artery is dominant. The femoral artery is small in caliber. There is atherosclerotic disease involving the distal vertebral arteries without significant focalstenosis. The basilar artery and posterior cerebral arteries appear normal withfetal origin of the right posterior cerebral artery. There is a small left P-comm. Otherwise, no aneurysms, vascular occlusions, or intracranial stenoses are identified. IMPRESSION: 1.Redemonstration of small right pontine hemorrhage with mildsurrounding vasogenic edema. No significant mass effect. No supratentorial hydrocephalus. 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 3.Otherwise, no large arterial occlusions or significant stenoses identified in the head. > Interpreting Provider: Kaylie Dao MD on 08/16/2022 10:32AM Héctor Silva MD MR ORDERABLES * LIPASE BLOOD (03/09/2022 1:12 PM CDT) Lipase 35 7 - 60 U/L [facility] Comment: REPORT COMMENT: VARIFIED ALL INFO FASTING:NO COLLECTION KIT GIVEN TO PATIENT. PATIENT ADVISED Test Performed at: [facility] [address] [place], [place] ??[phone] CECILIA FARIAS DO,MPH 03/09/2022 1:12 PM CDT 03/09/2022 1:17 PM CDT Diana Mao MD LAB - CHEMISTRY PATRICIA CASIANO Performing Organization Address [facility] de Phone Number [facility] [address] [place] [address] * (ABNORMAL) CULTURE URINE COMPREHENSIVE (09/29/2021 10:35 AM BUS AIDE) Pathologist [facility] Culture (A) [facility] Comment: ??CULTURE, URINE, SPECIAL ?Micro Number: ?[id number] ??Test Status: ? Final ??Specimen Source: ?? Other (specify) ??Specimen Quality: ??Adequate ??Result: ?10,000-49,000 CFU/mL of Corynebacterium species ? May represent colonizers from external and ? internal genitalia. No further testing (including ? susceptibility) will be performed. REPORT COMMENT: FASTING:UNKNOWN Test Performed at: [facility] [address] [place], [place] ??[phone] CECILIA FARIAS DO,MPH Microbiology URINE SPECIMEN COLLECTION, CATHETERIZED / Unknown 09/29/2021 10:35 AM BUS AIDE 09/29/2021 1:03 PM BUS AIDE Santiago Mar MD LAB - MICROBIOLOGY O RDERABLES Performing Organization Address [facility]/State/[facility] Co de Phone Number [facility] [phone] [place] [address] * AK INSERT NON-INDWELLING BLADDER (09/29/2021 10:31 AM BUS AIDE) Narrative Santiago Mar Che, MD - 09/29/2021 10:31 AM BUS AIDE Santiago Mar Che, MD ? 09/29/2021 10:31 AM The patient was prepped with betadine (or with hibiclens or other antiseptic agent if allergic to topical iodine). She understood the rationale for the procedure and agreed to the procedure. A 14F short female catheter was then advanced into the urethra and urine was collected for bedside urinalysis as well as a urine culture and/or formal urinalysis as needed. The post void residual is as noted in the progress note, as are results of the dipstick taken. The patient tolerated the procedure well. Santiago Mar MD PROCEDURE/MINOR SURG ICAL ORDERABLES * (ABNORMAL) URINALYSIS AUTO - POINT OF CARE (AMB) [facility] (09/29/2021) Glucose UA neg Bilirubin UA POCT neg Ketones UA POCT neg Specific [place] UA 1.020 Blood Urine POCT neg pH UA 6.0 Protein UA ++ Urobilinogen UA 0.2 Nitrite UA neg WBC UA neg Urine URINE / Unknown 09/29/2021 Santiago Mar MD LAB - POINT OF CARE ORDERABLES * DERMATOPATHOLOGY (01/08/2021 12:00 AM BUS AIDE) Only the most recent of2 resultswithin the time period is included. Case Report Dermatopathology Report ? Case: [id number] ? Authorizing Provider: ??Johnny Dodson Jr., MD ??Collected: ? 01/08/2021 12:00 AM ? Ordering Location: ? [facility] ?Received: ?01/09/2021 10:42 AM ? Pathologist: ? Reyna Hwang MD ? Specimen: ?Skin, right antecubital skin ? 1:51 PM T DERMATOPATHOLOGY LABORATORY Final Diagnosis Specimen A. SKIN, right antecubital skin: BASAL CELL CARCINOMA, NODULAR TYPE (C44.612) 1:51 PM T DERMATOPATHOLOGY LABORATORY Clinical History Basal cell carcinoma vs irritated seborrheic keratosis vs dermal nevus vs dermatofibroma. 1 1:51 PM T DERMATOPATHOLOGY LABORATORY Gross Description Specimen A: Received is one formalin filled container labeled with the patient's name and designated right antecubital skin. The specimen consists of a shave biopsy measuring 6x5x3 mm. Jar 0. 1 1:51 PM CDT DERMATOPATHOLOGY LABORATORY Microscopic Description Specimen A. SKIN, right antecubital skin: Within the dermis there are aggregates of basaloid cells with a high nuclear to cytoplasmic ratio and peripheral palisading. 1 1:51 PM T DERMATOPATHOLOGY LABORATORY Disclaimer An external and internal positive and negative controls are appropriate for the histochemical, immunohistochemical and immunofluorescence stain(s) in this case (if any), except where stated explicitly. The performance characteristics of the stain(s) cited in this report were developed and its performance characteristic determined by the Dermatopathology Laboratory at [facility], directed by Dr. Christine Iraheta. These tests need not be, and therefore are not, approved by the [place] Food and Drug Administration. The tests are used for clinical purposes. Billing Codes Specimen Charges Stain Charges 83751 1 1 1:51 PM CDT DERMATOPATHOLOGY LABORATORY Embedded Images 1 1:51 PM CDT DERMATOPATHOLOGY LABORATORY Pathology/Cytolog y TISSUE SPECIMEN FROM SKIN / Unknown 01/08/2021 01/09/2021 10:42 AM BUS AIDE Johnny Dodson Jr., MD LAB - PATHOLOGY /CYTOLOGY ORDERABLES DERMATOPATHOLOGY LABORATORY [facility] - Department of Dermatology [address], [address] [phone] * PATHOLOGY/CYTOLOGY REPORT ORDER (01/08/2021) Narrative 01/08/2021 Ordered by an unspecified provider. Scanned Document LAB - PATHOLOGY/CYTO LOGY ORDERABLES * XR KNEE LEFT 3VW (07/30/2020 12:23 PM CDT) Anatomical Region Laterality Modality Lower Extremity Radiographic Marychuy ging 07/30/2020 2:01 PM CDT Impressions 07/30/2020 2:03 PM CDT Impression: Mild medial compartment predominant tricompartmental left knee osteoarthritis. This report was electronically signed by FERNANDO OSEGUERA ??on 07/30/2020 2:03 PM . Narrative 07/30/2020 2:03 PM CDT Examination: XR KNEE LEFT 3VW History:Left knee pain Findings: No comparisons are available. Alignment of the left knee is normal. There is mild medial compartment predominant tricompartmental left knee osteoarthritis. There is no acute fracture. There is no knee effusion. Procedure Note Fernando Oseguera MD - 07/30/2020 Examination: XR KNEE LEFT 3VW History:Left knee pain Findings: No comparisons are available. Alignment of the left knee is normal. There is mild medial compartment predominant tricompartmental left knee osteoarthritis. There is no acute fracture. There is no knee effusion. Impression: Mild medial compartment predominant tricompartmental left knee osteoarthritis. This report was electronically signed by FERNANDO OSEGUERA on 07/30/2020 2:03PM . Tariq Antoine APRN-BRANCH BANKER DIAGNOSTIC IMAGING ORDERABLES * TSH (01/04/2020 3:15 PM BUS AIDE) TSH 2.452 0.350 - 4.940 uIU/mL 01/04/2020 5:19 PM BUS AIDE [facility] Blood BLOOD SPECIMEN / Unknown Lab Venipuncture / Unknown 01/04/2020 3:15 PM BUS AIDE 01/04/2020 3:56 PM BUS AIDE Diana Mao MD LAB - CHEMISTRY PATRICIA CASIANO [facility] Organization Address City/State/ZIP Co de Phone Number [address] [phone] * LAB RESULTS ORDER (05/18/2019 8:40 AM CDT) Only the most recent of3 resultswithin the time period is included. Narrative 05/18/2019 8:40 AM CDT Ordered by an unspecified provider. Scanned Document LAB - THERAPEUTIC DR MARCY MONITORING ORDERABLES * ECHO 2D ONLY WO COLOR OR DOPPLER (06/20/2015 3:24 PM CDT) Anatomical Region Laterality Modality Other Narrative 06/20/2015 3:24 PM CDT NAME: Kirsty Rea : 1940 AGE: 74 y.o. SEX: female Referring Physician: Freeman Cardona MD [facility] [place] [address] Ordering Physician: Dr. Cardona Primary Care Physician: Aj Michelle Date of Test: 06/17/15 TAPE#: ?? Metal Wire Technician: DAVID Height: 5' 7 (170.2 cm) Weight: 165 lb (74.844 kg) BSA: ?? Introduction: Kirsty Rea is a 74 y.o. female presenting with hypertension. Indication: Hypertension Chamber Measurements LV Internal Dimension Systole (cm): 3.8 cm LV Internal Dimension Diastole (cm): 4.9 cm Septal Thickness (cm): 1.1 cm Posterior Wall Thickness (cm): 1.2 cm LV Systolic Function: Normal Aortic Root Measurement (cm): 3.5 cm Left Atrium Measurement (cm): 3.9 cm Right Atrial Size: Normal RV Size: Normal Global RV function: Normal Aortic Valve AV Max (m/s): 1.8 m/s LVOT Diameter (cm): 2.1 cm LVOT max (m/s): 1 m/s Normal Aortic Valve Velocities: Yes Mitral Valve Mitral Valve Velocities: ? E (m/s): 0.8 m/s ? A (m/s): 0.6 m/s ? Tissue Doppler Velocities: ? Diastolic Function: Abnormal Tricuspid Valve Max Tricuspid Valve Velocity (m/s): 0.6 m/s Normal Tricuspid Valve Velocities: Yes Pulmonic Valve Max Pulmonic Valve Velocity (m/s): 0.8 m/s Normal Pulmonic Valve Velocities: Yes OVERALL INTERPRETATION: - Normal left ventricular size and systolic function. Ejection fraction is estimated to be 65%. - Normal right ventricular size and systolic function. - No abnormalities of the aorta or pericardium. ?? - Normal aortic valve structure and velocities. ?? - Normal mitral valve structure and velocities. - Mitral valve velocities demonstrate abnormal E/A ratio, consistent with stage 1 diastolic dysfunction. - Normal tricuspid valve structure and velocities. Trivial tricuspid regurgitation. - Calculated right ventricular systolic pressure of < 35 mmHg, which is normal. - Normal pulmonary valve structure and velocities. Reading Physician: Doug Buck MD Procedure Note Provider, MD Tracey - 04/07/2018 NAME: Kirsty Rea : 1940 AGE: 74 y.o. SEX: female Referring Physician: Freeman Cardona MD [address] [facility] [address] [place] [address] Ordering Physician: Dr. Cardona Primary Care Physician: Aj Michelle Date of Test: 06/17/15 TAPE#: Metal Wire Technician: BA Height: 5' 7 (170.2 cm) Weight: 165 lb (74.844 kg) BSA: Introduction: Kirsty Rea is a 74 y.o. female presenting withhypertension. Indication: Hypertension Chamber Measurements LV Internal Dimension Systole (cm): 3.8 cm LV Internal Dimension Diastole (cm): 4.9 cm Septal Thickness (cm): 1.1 cm Posterior Wall Thickness (cm): 1.2 cm LV Systolic Function: Normal Aortic Root Measurement (cm): 3.5 cm Left Atrium Measurement (cm): 3.9 cm Right Atrial Size: Normal RV Size: Normal Global RV function: Normal Aortic Valve AV Max (m/s): 1.8 m/s LVOT Diameter (cm): 2.1 cm LVOT max (m/s): 1 m/s Normal Aortic Valve Velocities: Yes Mitral Valve Mitral Valve Velocities: E (m/s): 0.8 m/s A (m/s): 0.6 m/s Tissue Doppler Velocities: Diastolic Function: Abnormal Tricuspid Valve Max Tricuspid Valve Velocity (m/s): 0.6 m/s Normal Tricuspid ValveVelocities: Yes Pulmonic Valve Max Pulmonic Valve Velocity (m/s): 0.8 m/s Normal Pulmonic ValveVelocities: Yes OVERALL INTERPRETATION: - Normal left ventricular size and systolic function. Ejection fraction isestimated to be 65%. - Normal right ventricular size and systolic function. - No abnormalities of the aorta or pericardium. - Normal aortic valve structure and velocities. - Normal mitral valve structure and velocities. - Mitral valve velocities demonstrate abnormal E/A ratio, consistent withstage 1 diastolic dysfunction. - Normal tricuspid valve structure and velocities. Trivial tricuspidregurgitation. - Calculated right ventricular systolic pressure of < 35 mmHg, which isnormal. - Normal pulmonary valve structure and velocities. Reading Physician: Doug Buck MD Freeman Cardona MD ECHOCARDIOGRAPHY RAD IANT * RPR W REFLEX CONFIRM (06/26/2014 9:43 AM CDT) RPR Non Reactive Non Reactive [facility] ([employer]ES[employer]) 06/26/2014 9:43 AM CDT 06/26/2014 12:22 PM CDT Narrative [facility] (JERE) - 07/01/2014 3:07 PM CDT Performed at: ??[address] - [address] ??[id number] Writer Technical Publications: Jesús Woo PhD, Phone: ??[phone] Specimen Comment: A courtesy copy of this report has been sent to Specimen Comment: [phone]. Diana Mao MD LAB - CHEMISTRY PATRICIA CASIANO [facility] (BEAKER) * CREATININE BLOOD (10/31/1998 12:00 AM BUS AIDE) Creatinine 1.1 mg/dL [facility] 10/31/1998 Narrative [facility] - 10/31/1998 12:00 AM BUS AIDE This external order was created through the Results Console. Historical Provider LAB - CHEMISTRY O SARIKA Performing Organization Address [facility]/ZIP Co de Phone Number [facility] * CALCIUM BLOOD (10/31/1998 12:00 AM BUS AIDE) Calcium 9.6 mg/dL [facility] Blood specimen (specimen) BLOOD SPECIMEN / Unknown 10/31/1998 Narrative [facility] - 10/31/1998 12:00 AM BUS AIDE This external order was created through the Results Console. [facility] Provider LAB - CHEMISTRY Rosalina BAUM Performing Organization Address [facility] Co de Phone Number [facility] * BUN (10/31/1998 12:00 AM BUS AIDE) BUN 30.0 mg/dL [facility] Blood specimen (specimen) BLOOD SPECIMEN / Unknown 10/31/1998 Narrative [facility] - 10/31/1998 12:00 AM BUS AIDE This external order was created through the Results Console. Historical Provider LAB - CHEMISTRY O SARIKA Performing Organization Address City/[facility]/ZIP Co de Phone Number [facility] * LIPID PROFILE (10/31/1998 12:00 AM BUS AIDE) Cholesterol Total [facility] HDL 90 mg/dL [facility] Triglycerides 95.0 mg/dL [facility] LDL Calculated [facility] Cholesterol 249.0 mg/dL [facility] LDL Calculated 140.0 mg/dL [facility] Blood specimen (specimen) BLOOD SPECIMEN / Unknown 10/31/1998 Narrative [facility] - 10/31/1998 12:00 AM BUS AIDE This external order was created through the Results Console. Historical Provider LAB - CHEMISTRY O RDERABLES [facility] Care Teams [employer] W[employer] Saw Operator Relationship Specialty Start Date End Date Yanira Meyers, GENERAL ADMINISTRATOR-[employer] [address] [place] [phone] PCP - General Nurse Practitioner Family 06/15/23"
--- OUTSIDE RECORDS SUMMARY | 2024-10-15 16:31 | XMS_ITS | Encounter Summary ---
Author Organization [facility] Address [address] [place] [address] Care Team Providers Care Rounding Machine Tender Name Role Phone Yanira Meyers PERSONAL LINES APPRAISER-PHOTOGRAPH EDITOR Primary Care Provid er Reason for Referral * Radiology Services (Routine) - Closed Specialty Diagnoses / Procedures Referred By Abena torrez Referred To Contact Vascular Lab Diagnoses ESRD (end stage renal disease) (HCC) Procedures IR ANGIO AV SHUNT IMAGING Christine Benitez MD [address] [place] [address], [address] [address] Referral ID Status Reason Start Date Expiration Date Visits Re quested Visits Authorized [id number] Closed 02/15/2024 02/14/2025 1 1 * Radiology Services (Routine) - Closed Specialty Diagnoses / Procedures Referred By Abena torrez Referred To Contact Vascular Lab Diagnoses ESRD (end stage renal disease) (HCC) Procedures IR ANGIO AV SHUNT IMAGING Christine Benitez MD [address] [place] [address], [address] [place] [id number] Referral ID Status Reason Start Date Expiration Date Visits Re quested Visits Authorized [id number] Closed 02/15/2024 02/14/2025 1 1 Reason for Visit * Radiology Services (Routine) - Closed Specialty Diagnoses / Procedures Referred By Contac t Referred To Contact Vascular Lab Diagnoses ESRD (end stage renal disease) (HCC) Procedures IR ANGIO AV SHUNT IMAGING Christine Benitez MD [address] [place] [phone] [facility] [address] [place] [address], [address] [address] Referral ID Status Reason Start Date Expiration Date Visits Re quested Visits Authorized [id number] Closed 02/15/2024 02/14/2025 1 1 Encounter Details Date Type Department Care Team (Latest Contact Info) Description 02/15/2024 9:29 AM CDT - 02/15/2024 11:59 PM CDT Hospital Encounter [facility] Vascular Services [address] [place] [address], [facility] [address] [place] [address] Jarett Reinoso MD [address] [place] [phone] Christine Benitez MD [address] [place] [phone] Discharge Disposition: Home or Self Care Social History Tobacco Use Types Packs/Day Years [...] on file documented as of this encounter Last Filed Vital Signs Vital Sign Reading Time Taken Comments Blood Pressure 152/61 02/15/2024 10:40 AM CDT Pulse 69 02/15/2024 10:40 AM CDT Temperature 36.3 ??C (97.3 ??F) 02/15/2024 9:51 AM CD T Respiratory Rate 25 02/15/2024 10:40 AM CDT Oxygen Saturation 94% 02/15/2024 10:40 AM CDT Inhaled Oxygen Concentration - - Weight 54.4 kg (120 lb) 02/15/2024 9:51 AM CDT Height 175.3 cm (5' 9 ) 02/15/2024 9:51 AM CDT Body Mass Index 17.72 02/15/2024 9:51 AM CDT documented in this encounter Functional Status Functional Status Response [...] Yes 08/15/2022 documented as of this encounter Medications at Time of Discharge Medication Sig Dispensed Refills Start Date End Date acetaminophen (Tylenol) 500 MG tablet Take 1 (one) tablet by mouth every 4 hours as needed for Fever, Pain or Headache Maximum allowable Acetaminophen amount = 4 Grams (4000 mg) / 24 hours. 09/09/2022 ALPRAZolam (Xanax) 0.25 MG tablet Take 1 (one) tablet by mouth 3 times daily as needed for Anxiety amLODIPine (Norvasc) 10 MG tablet Take 1 (one) tablet by mouth at bedtime 10/05/2023 busPIRone (Buspar) 5 MG tablet Take 1 (one) tablet by mouth 3 times daily 02/23/2023 epoetin deyanira-EPBX (Retacrit) 4000 UNIT/ML injection 2 mL by Intravenous route Give in dialysis on Tuesday, & Tuesday09/11/2022 escitalopram (Lexapro) 5 MG half tablet Take by mouth once daily labetalol (Normodyne; Trandate) 300 MG tablet Take 1 (one) tablet by mouth 2 times daily 04/07/2023 lanthanum (Fosrenol) 1000 MG chew tablet Take 1 (one) tablet by mouth 3 times daily with meals 03/23/2023 losartan (Cozaar) 50 MG tablet Take 1 (one) tablet by mouth once daily 10/06/2023 memantine (Namenda) 5 MG tablet Take 1 (one) tablet by mouth 2 times daily Multiple Vitamins-Minerals (PRESERVISION AREDS 2 PO) Take 1 tablet by mouth once daily Velphoro 500 MG 12/19/2023 documented as of this encounter Progress Notes * Shirin Camarillo RN - 02/15/2024 9:56 AM CDT Patient has ALLY AVG, pulsatile throughout. documented in this encounter H&P Notes * Christine Benitez MD - 02/15/2024 9:59 AM CDT Chief Complaint ESRD History and Physical Kirstyterri Rea is a 83 year old female. ESRD w inc pulsatility Past Medical History: Diagnosis Date ??? Anxiety ??? CKD (chronic kidney disease) stage 3, GFR 30-59 ml/min ([facility]) proteinuria; Buttonholer = Dr. Reyes ??? CVA (cerebral vascular accident) ([facility]) 08/14/2022 ??? Dementia without behavioral disturbance ([facility]) mild ??? ESRD on dialysis ([facility]) [facility]ian [facility] , Th 07/06/23 ??? Gout ??? HTN (hypertension), benign ??? Hyperparathyroid bone disease (HCC) s/p surgery ??? Morphea ??? Osteopenia Past Surgical History: Procedure Laterality Date ??? Appendectomy ??? Breast Reduction ??? Cholecystectomy, Laparoscopic ??? HX FRACTURE TX ??? INSERTION GRAFT ARTERIO-VENOUS (AV) Left 06/15/2023 Left; LEFT UPPER ARM ARTERIOVENOUS GRAFT ??? OOPHORECTOMY 1971 ??? Parathyroidectomy 1999 Allergies Allergen Reactions ??? Ramipril Other Other reaction(s): Other (See Comments) Kidney Damage Kidney Damage Current Outpatient Medications on File Prior to Encounter Medication Sig Dispense Refill ??? acetaminophen (Tylenol) 500 MG tablet Take 1 (one) tablet by mouth every 4 hours as needed for Fever, Pain or Headache Maximum allowable Acetaminophen amount = 4 Grams (4000 mg) / 24 hours. ??? ALPRAZolam (Xanax) 0.25 MG tablet Take 1 (one) tablet by mouth 3 times daily as needed for Anxiety ??? amLODIPine (Norvasc) 10 MG tablet Take 1 (one) tablet by mouth at bedtime ??? busPIRone (Buspar) 5 MG tablet Take 1 (one) tablet by mouth 3 times daily ??? epoetin deyanira-EPBX (Retacrit) 4000 UNIT/ML injection 2 mL by Intravenous route Give in dialysis on Tuesday, & Tuesday ??? escitalopram (Lexapro) 5 MG half tablet Take by mouth once daily ??? labetalol (Normodyne; Trandate) 300 MG tablet Take 1 (one) tablet by mouth 2 times daily ??? lanthanum (Fosrenol) 1000 MG chew tablet Take 1 (one) tablet by mouth 3 times daily with meals ??? losartan (Cozaar) 50 MG tablet Take 1 (one) tablet by mouth once daily ??? memantine (Namenda) 5 MG tablet Take 1 (one) tablet by mouth 2 times daily ??? Multiple Vitamins-Minerals (PRESERVISION AREDS 2 PO) Take 1 tablet by mouth once daily ??? Velphoro 500 MG No current facility-administered medications on file prior to encounter. Social History Tobacco Use ??? Smoking status: Former Packs/day: 1 Types: Cigarettes Start date: 10/31/1965 Quit date: 10/31/1983 Years since quittin.3 ??? Smokeless tobacco: Never Vaping Use ??? Vaping Use: Never used Substance Use Topics ??? Alcohol use: Yes Alcohol/week: 0.8 standard drinks of alcohol Types: 1 Standard drinks or equivalent per week Comment: occasionally ??? Drug use: No Family History Problem Relation Name Age of Onset ??? Hypertension Father ??? Hypertension Brother Physical Examination Constitutional: Vital signs are stable and the patient is no acute distress. Eyes: Reveal no icterus. Neck: Neck is supple without JVD or bruit. Respiratory: Lungs are clear. Cardiovascular: Regular rate and rhythm. GI: Abdomen is soft and non tender. Musculoskeletal: Extremities are warm and well perfused. Neurologic: Intact. SEDATION PLAN: minimal ASA? Physical Status Classification: 3 (A patient with severe systemic disease) Patient airway and condition has been evaluated immediately prior to sedation and/or analgesia: Yes. I have discussed with the patient all options, including risks and benefits. The patient wishes to proceed with fistulogram. Review of Systems General: No fatigue or weight loss Eyes: No vision changes or pain Neuro: No mental status changes or dizziness Cardiovascular: No chest pain or palpitations Pulmonary: No shortness of breath or wheezing. GI: No abdominal pain, no nausea. Musculoskeletal: No muscle pain or joint pain Skin: No rashes or texture changes Hematologic: No easy bruising or bleeding Rectal: No rectal bleeding or pain Impression/Plan: ESRD. Will plan for fistulogram. I have discussed the risks, benefits and alternatives with the patient who understands and wishes to proceed. documented in this encounter Procedure Notes * Christine Benitez MD - 02/15/2024 10:45 AM CDTAssociated Order(s): IR ANGIO AV SHUNT IMAGING Surgeon: Christine Benitez MD Pre-Procedure diagnosis: ESRD Time out and final pre-procedure assessment completed immediately prior to start of procedure. Medications reviewed. Post-Procedure diagnosis: Same Anesthesia: Local Technical Procedure Performed: Left upper extremity AV graft injection with angioplasty Findings: After informed consent was obtained the patient was placed supine the angiogram table in the left upper extremity was draped in the sterile. Anesthesia was obtained with lidocaine and the graft was punctured in an antegrade manner with a micropuncture set. Contrast injection demonstrated p atency of the graft with recurrent high-grade stenosis at the venous anastomosis. The venous outflow and central venous structures appear to be unremarkable. A 6 Monegasque sheath was introduced over a Bentson wire and angioplasty was performed using an 8 mm x 4 cm Conquest balloon. Reflux injection demonstrated a widely patent arterial anastomosis. Contrast injection after angioplasty demonstrated no significant residual stenosis at the venous anastomosis.The sheath was removed and hemostasis was obtained using a pursestring suture. The patient tolerated the procedure well. 15 cc of Isovue contrast was used. Radiation exposure 1.8 mGy air kerma Disposition: Home Status: Stable Drain or Pack: None Additional information/Complications: None Estimated blood loss: negligible Specimen(s) removed: No Specimen During the post-procedure debrief all intra-procedure verbal order medications ordered by the proceduralist were reviewed and authenticated. documented in this encounter Plan of Treatment Upcoming Encounters Date Type Department Care Team (Late st Contact Info) Description 12/11/2024 10:30 AM HORSE IDENTIFIER Appointment [facility] Vascular Services [id number] [facility], [facility] [address] [place] [address] Jarett Reinoso MD [address] [place], [place] [id number] Christine Benitez MD [address] [place] [phone] Keyshawn Krueger MD [address] [place] [address] [place] [address] [phone] documented as of this encounter Procedures Procedure Name Priority Date/Time Associated Diagnosis Comments CARDIAC RHYTHM STRIP ORDER 02/16/2024 9:19 PM CDT IR ANGIO AV SHUNT IMAGING Routine 02/15/2024 10:40 AM CDT ESRD (end stage renal disease) ([facility]) documented in this encounter Results * CARDIAC RHYTHM STRIP ORDER (02/16/2024 9:19 PM CDT) Narrative 02/16/2024 9:19 PM CDT Ordered by an unspecified provider. Scanned Document CARDIAC SERVICES ORD ERABLES * IR ANGIO AV SHUNT IMAGING (02/15/2024 10:40 AM CDT) Anatomical Region Laterality Modality Lower Extremity, Upper Extremity, Chest X-Ray Angiography Narrative 02/15/2024 10:45 AM CDT Christine Benitez MD ? 02/15/2024 10:47 AM Surgeon: Christine Benitez MD Pre-Procedure diagnosis: ESRD Time out and final pre-procedure assessment completed immediately prior to start of procedure. Medications reviewed. Post-Procedure diagnosis: Same Anesthesia: Local Technical Procedure Performed: ??Left upper extremity AV graft injection with angioplasty Findings: ??After informed consent was obtained the patient was placed supine the angiogram table in the left upper extremity was draped in the sterile. ??Anesthesia was obtained with lidocaine and the graft was punctured in an antegrade manner with a micropuncture set. ??Contrast injection demonstrated patency of the graft with recurrent high-grade stenosis at the venous anastomosis. ??The venous outflow and central venous structures appear to be unremarkable. ?? A 6 Monegasque sheath was introduced over a Bentson wire and angioplasty was performed using an 8 mm x 4 cm Conquest balloon. ?? Reflux injection demonstrated a widely patent arterial anastomosis. ??Contrast injection after angioplasty demonstrated no significant residual stenosis at the venous anastomosis. ??The sheath was removed and hemostasis was obtained using a pursestring suture. ??The patient tolerated the procedure well. ?? 15 cc of Isovue contrast was used. ??Radiation exposure 1.8 mGy air kerma Disposition: Home Status: Stable Drain or Pack: None Additional information/Complications: None Estimated blood loss: negligible Specimen(s) removed: No Specimen During the post-procedure debrief all intra-procedure verbal order medications ordered by the proceduralist were reviewed and authenticated. Christine Benitez MD IR ORDERABLES documented in this encounter Visit Diagnoses Diagnosis ESRD (end stage renal disease) (HCC)- Primary End stage renal disease documented in this encounter Administered Medications Inactive Administered Medications - up to 3 most recent administrations Medication Order MAR Action Action Date Dose Rate Site 0.9% NaCl infusion at 50 mL/hr, Intravenous, INTRA-PROCEDURE CONTINUOUS, Starting on Tue02/15/24 at 1015, Until Rebekah 02/16/24 at 0131, Intra-procedure (IR) $ New Bag/Syringe 02/15/2024 10:42 AM CDT 40 mL 50 mL/hr iopamidol (Isovue 300) 61 % contrast Intravenous, INTRA-PROCEDURE MULTIPLE, Starting on Tue02/15/24 at 1012, Until Rebekah 02/16/24 at 0131, Intra/Post-procedure $ Given - Contrast 02/15/2024 10:43 AM CDT 15 mL lidocaine (Xylocaine PF) 1% injection ADS Med 1 dose, Starting on Tue02/15/24 at 1010, Until Tue02/15/24 at 1043, Created by cabinet override lidocaine PF (Xylocaine MPF) 1 % injection Infiltration, INTRA-PROCEDURE MULTIPLE, Starting on Tue02/15/24 at 1012, Until Rebekah 02/16/24 at 0131, Intra-procedure (IR) $ Given 02/15/2024 10:43 AM CDT 10 mg documented in this encounter Care Teams Rounding Machine Tender Relationship Specialty Start Date End Date Yanira Meyers APRN-PHOTOGRAPH EDITOR [facility] [place] [address] PCP - General Nurse Practitioner Family 06/15/23 documented as of this encounter
--- OUTSIDE RECORDS SUMMARY | 2024-10-15 16:31 | XMS_ITS | Encounter Summary ---
Author Organization [facility] Address [address] [facility] [place] [address] Care Team Providers Care Asphalt Still Operator Name Role Phone Yanira Meyers BALLROOM DANCE INSTRUCTOR-PERLITE GRINDER Primary Care Provid er Reason for Referral * Radiology Services (Routine) - Pending Review Specialty Diagnoses / Procedures Referred By Contac t Referred To Contact Vascular Lab Diagnoses ESRD (end stage renal disease) (HCC) Procedures IR ANGIO AV SHUNT IMAGING Keyshawn Krueger MD [address] [place] [address], [address] [place] [address] Referral ID Status Reason Start Date Expiration Date V isits Requested Visits Authorized [id number] Pending Review 05/15/2024 05/15/2025 1 1 * Radiology Services (Routine) - Closed Specialty Diagnoses / Procedures Referred By Contac t Referred To Contact Vascular Lab Diagnoses ESRD (end stage renal disease) (HCC) Procedures IR [place] [address] [facility] [address] [place] [address] [facility]ly [facility] [address] [facility], [address] [place] [address] Referral ID Status Reason Start Date Expiration Date Visits Re quested Visits Authorized [id number] Closed 03/27/2024 05/15/2024 1 1 Reason for Visit * Radiology Services (Routine) - Closed Specialty Diagnoses / Procedures Referred By Contac t Referred To Contact Vascular Lab Diagnoses ESRD (end stage renal disease) (HCC) Procedures IR ANGIO AV SHUNT IMAGING Jarett Reinoso MD [address] [place] [phone] [facility] [id number] [place] [address], [address] [address] Referral ID Status Reason Start Date Expiration Date Visits Re quested Visits Authorized [id number] Closed 11/09/2023 11/08/2024 1 1 Encounter Details Date Type Department Care Team (Latest Contact Info) Description 05/15/2024 9:35 AM CDT - 05/15/2024 11:59 PM CDT Hospital Encounter [facility] Health Vascular Services [id number] [place] [address], [facility] [address] [place] [address] Jarett Reinoso MD [address] [place] [id number] Christine Benitez MD [address] [place] [phone] Keyshawn Krueger MD [address] [place] [address] Discharge Disposition: Home or Self Care Social [...] Sign Reading Time Taken Comments Blood Pressure 124/45 05/15/2024 11:38 AM CDT Pulse 61 05/15/2024 11:38 AM CDT Temperature 36.4 ??C (97.5 ??F) 05/15/2024 9:48 AM CD T Respiratory Rate 14 05/15/2024 11:38 AM CDT Oxygen Saturation 93% 05/15/2024 11:38 AM CDT Inhaled Oxygen Concentration - - Weight 54.4 kg (120 lb) 05/15/2024 9:48 AM CDT Height 175.3 cm (5' 9 ) 05/15/2024 9:48 AM CDT Body Mass Index 17.72 05/15/2024 9:48 AM CDT documented in this encounter Functional [...] as of this encounter Progress Notes * Marilou Junior RN - 05/15/2024 9:51 AM CDT Pt has left upper arm AVG that becomes pulsatile distally. Pt c/o prolonged bleeding after dialysistreatment. documented in this encounter H&P Notes * Keyshawn Krueger MD - 05/15/2024 10:39 AM CDT IR PRE-PROCEDURE MEDICAL HISTORY & PHYSICAL Today's Date: 05/15/2024 10:39 AM Kirsty Rea 83 year old female BP 119/49 Pulse 66 Temp 97.5 ??F (36.4 ??C) Ht 1.753 m (5' 9 ) Wt 54.4 kg (120 lb) SpO2 98% History: 83 yo F w ESRD on HD through a left arm AV graft referred for prolonged bleeding after access. No acute complaints. 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 ALPRAZolam (Xanax) 0.25 MG tablet Take 1 (one) tablet by mouth 3 times daily as needed for Anxiety (Patient not taking: Reported on 05/15/2024) amLODIPine (Norvasc) 10 MG tablet Take 1 (one) tablet by mouth at bedtime busPIRone (Buspar) 5 MG tablet Take 1 (one) tablet by mouth 3 times daily epoetin deyanira-EPBX (Retacrit) 4000 UNIT/ML injection 2 mL by Intravenous route Give in dialysis on Tuesday, & Tuesday escitalopram (Lexapro) 5 MG half tablet Take by mouth once daily (Patient not taking: Reported on 05/15/2024) labetalol (Normodyne; Trandate) 300 MG tablet Take 1 (one) tablet by mouth 2 times daily lanthanum (Fosrenol) 1000 MG chew tablet Take 1 (one) tablet by mouth 3 times daily with meals (Patient not taking: Reported on 05/15/2024) losartan (Cozaar) 50 MG tablet Take 1 (one) tablet by mouth once daily memantine (Namenda) 5 MG tablet Take 1 (one) tablet by mouth 2 times daily Multiple Vitamins-Minerals (PRESERVISION AREDS 2 PO) Take 1 tablet by mouth once daily (Patient nottaking: Reported on 05/15/2024) Velphoro 500 MG (Patient not taking: Reported on 05/15/2024) No current facility-administered medications for this encounter. Physicial Exam: General appearance: alert, cooperative, no distress Heart: regular rate Lungs: breath sounds normal Abdomen: soft, non-tender Extremities: Soft palpable thrill over left arm AV graft without any tenderness ASA III: Multi system dx. Limits ADL's, no immediate danger of Grade 2: Soft palate, base of uvula, tonsillar pillars, and portion of posterior pharyngeal wall visible Indication(s) for Procedure: Prolonged bleeding after access Procedure Planned: Fistulogram with possible intervention Sedation plan: Minimal; all options, risks and benefits were discussed Keyshawn Krueger MD documented in this encounter Procedure Notes * Keyshawn Krueger MD - 05/15/2024 11:26 AM CDTAssociated Order(s): IR ANGIO AV SHUNT IMAGING Interventional Radiology Post-Operative/Procedure Progress Notes Date: 05/15/2024 Surgeon: Keyshawn Krueger MD Lead Php Developer: none Pre-Procedure diagnosis: ESRD; prolonged bleeding after access Time out and final pre-procedure assessment completed immediately prior to start of procedure. Medications reviewed. Post-Procedure diagnosis: Same Anesthesia: Local and IV Sedation; 0.5 mg of Versed and 50 mcg of fentanyl Technical Procedure Performed: Limited sonographic evaluation of left arm AV graft followed by ultrasound- guided access. The DICOMultrasound images were documented in PACS. 2. Selective left arm fistulogram 3. Left peripheral venoplasty of greater than 70% venous anastomotic and intra graft stenosis with an 8 mm x 4 cm Conquest balloon Total contrast: 15 mL of Isovue 300 Total radiation dose: 1.9 mGy Complications: None Findings: Informed consent was obtained. A time-out was performed. The patient's airway and condition was evaluated immediately prior to sedation and/or analgesia. The patient was placed supine on the angiographic table and her left arm was prepped and draped in the usual sterile manner. Following the administration of subcutaneous lidocaine, the left arm AV graft was accessed antegrade with a micropuncture needle under direct ultrasound guidance. The ultrasound images demonstrated a patent anastomosis without any thrombus. The needle was exchanged over thewire for a dilator. Contrast was injected through the dilator to perform selective left arm fistulogram. Sequential DSA of the central venous outflow was performed as well as a reflux fistulogram demonstrating brisk central venous outflow. Recurrent greater than 70% venous anastomotic and intragraft stenosis were seen. The transitional dilator was then exchanged over the wire for a short 6 Vincentian sheath. Over the wire, peripheral venoplasty was performed with an 8 mm x 4 cm Conquest balloon. A final fistulogram demonstrated excellent response without any extravasation. All of the catheters, wires, and sheath were removed. Adequate hemostasis at the puncture site was achieved using manual compression. A sterile dressing was applied. Disposition: OPS Status: Stable Drain or Pack: None Additional information/Complications: None Estimated blood loss: negligible Specimen(s) removed: No Specimen documented in this encounter Plan of Treatment Upcoming Encounters Date Type Department Care Team (Late st Contact Info) Description 12/11/2024 10:30 AM POWDER PRESS OPERATOR Appointment [facility] Vascular Services [id number] [place] [address] [address] [place] [address] Jarett Reinoso MD [address] [place], [place] [phone] Christine Benitez MD [address] [place] [phone] Keyshawn Krueger MD [address] [place] [address] [place] [address] [phone] Pending Results Name Type Priority Associated Diagnoses Date /Time IR ANGIO AV SHUNT IMAGING Imaging Routine ESRD (end stage renal disease) ([facility]) 08/16/2024 10:42 AM CDT Scheduled Orders Name Type Priority Associated Diagnoses Orde r Schedule IR ANGIO AV SHUNT IMAGING Imaging Routine ESRD (end stage renal disease) ([facility]) 1 Occurrences starting 05/15/2024 until 05/15/2025 documented as of this encounter Procedures Procedure Name Priority Date/Time Associated Diagnosis Comments CARDIAC RHYTHM STRIP ORDER 05/17/2024 7:49 PM CDT IR ANGIO AV SHUNT IMAGING Routine 05/15/2024 11:24 AM CDT ESRD (end stage renal disease) (HCC) documented in this encounter Results * CARDIAC RHYTHM STRIP ORDER (05/17/2024 7:49 PM CDT) Narrative 05/17/2024 7:49 PM CDT Ordered by an unspecified provider. Scanned Document CARDIAC SERVICES ORD ERABLES * IR ANGIO AV SHUNT IMAGING (05/15/2024 11:24 AM CDT) Anatomical Region Laterality Modality Lower Extremity, Upper Extremity, Chest X-Ray Angiography Narrative 05/15/2024 11:26 AM CDT Keyshawn Krueger MD ? 05/15/2024 11:29 AM Interventional Radiology Post-Operative/Procedure Progress Notes Date: ??05/15/2024 Surgeon: Keyshawn Krueger MD Lead Php Developer: none Pre-Procedure diagnosis: ESRD; prolonged bleeding after [...] over the wire for a short 6 Vincentian sheath. ??Over the wire, peripheral venoplasty was [...] No Specimen Leland Thompson MD IR ORDERABLES documented in this encounter Visit Diagnoses Diagnosis ESRD (end stage renal disease) (HCC) End stage renal disease documented in this encounter Administered Medications Inactive Administered Medications - up to 3 most recent administrations Medication Order MAR Action Action Date Dose Rate Site 0.9% NaCl infusion at 50 mL/hr, Intravenous, INTRA-PROCEDURE MULTIPLE, Starting on Tue05/15/24 at 1049, Until Tue05/16/24 at 0132, Intra-procedure (IR) $ New Bag/Syringe 05/15/2024 11:26 AM CDT 30 mL 50 mL/hr fentaNYL (PF) (Sublimaze) injection 25-100 mcg 25-100 mcg, Intravenous, INTRA-PROCEDURE MULTIPLE, Starting on Tue05/15/24 at 1049, Until Tue05/16/24 at 0132, Administer every 5 minutes during procedure as needed for sedation. Dose to be determined by physician. Patient preference for lesser PRN pain meds may be honored when the patient requests a less strong medication, a lower dose, or a less intrusive route of administration when the lesser drug, dose and route have been ordered for the patient. This patient request must be documented in the MAR. If both oral and IV options are ordered for the same pain severity, give oral first unless patient cannot tolerate oral intake, Intra-procedure (IR) $ Given 05/15/2024 11:23 AM CDT 50 mcg fentaNYL (Sublimaze) injection 0.05 mg/mL ADS Med 1 dose, Starting on Tue05/15/24 at 1120, Until Tue05/15/24 at 1123, Created by cabinet override Patient preference for lesser PRN pain meds may be honored when the patient requests a less strong medication, a lower dose, or a less intrusive route of administration when the lesser drug, dose and route have been ordered for the patient. This patient request must be documented in the MAR. If both oral and IV options are ordered for the same pain severity, give oral first unless patient cannot tolerate oral intake iopamidol (Isovue 300) 61 % contrast Intravenous, INTRA-PROCEDURE MULTIPLE, Starting on Tue05/15/24 at 1050, Until Tue05/16/24 at 0132, Intra/Post-procedure $ Given - Contrast 05/15/2024 11:27 AM CDT 15 mL lidocaine (Xylocaine PF) 1% injection ADS Med 1 dose, Starting on Tue05/15/24 at 1055, Until Tue05/15/24 at 1116, Created by cabinet override lidocaine PF (Xylocaine MPF) 1 % injection Infiltration, INTRA-PROCEDURE MULTIPLE, Starting on Tue05/15/24 at 1049, Until Tue05/16/24 at 0132, Intra-procedure (IR) $ Given 05/15/2024 11:16 AM CDT 10 mg midazolam (Versed) 1 mg/mL injection ADS Med 1 dose, Starting on Tue05/15/24 at 1120, Until Tue05/15/24 at 1123, Created by cabinet override midazolam (Versed) injection 0.5-2 mg 0.5-2 mg, Intravenous, INTRA-PROCEDURE MULTIPLE, Starting on Tue05/15/24 at 1049, Until Tue05/16/24 at 0132, Administer every 5 minutes during procedure as needed for sedation. Dose to be determined by physician., Intra-procedure (IR) $ Given 05/15/2024 11:23 AM CDT 0.5 mg documented in this encounter Care Teams Asphalt Still Operator Relationship Specialty Start Date End Date Yanira Meyers, BALLROOM DANCE INSTRUCTOR-PERLITE GRINDER [facility] [place] [phone] PCP - General Nurse Practitioner Family 06/15/23 documented as of this encounter
--- OUTSIDE RECORDS SUMMARY | 2024-10-15 16:31 | XMS_ITS | Encounter Summary ---
Author Organization [facility] Address [address] [place] [address] Care Team Providers Care Machine Greaser Name Role Phone Yanria Meyers MANUFACTURING MILLWRIGHT-DIESEL POWERPLANT MECHANIC Primary Care Provid er Reason for Referral * Radiology Services (Routine) - Closed Specialty Diagnoses / Procedures Referred By Abena torrez Referred To Contact Vascular Lab Diagnoses ESRD (end stage renal disease) (HCC) Procedures IR ANGIO AV SHUNT IMAGING Jarett Reinoso MD [address] [place] [address] [address] Referral ID Status Reason Start Date Expiration Date Visits Re quested Visits Authorized [id number] Closed 11/09/2023 11/08/2024 1 1 GENERAL MANAGER Reason for Visit * Radiology Services (Routine) - Closed Specialty Diagnoses / Procedures Referred By Abena torrez Referred To Contact Vascular Lab Diagnoses ESRD (end stage renal disease) (HCC) Procedures IR ANGIO AV SHUNT IMAGING Jarett Reinoso MD [address] [place] [address], [address] [address] Referral ID Status Reason Start Date Expiration Date Visits Re quested Visits Authorized [id number] Closed 11/09/2023 11/08/2024 1 1 Encounter Details Date Type Department Care Team (Latest Contact Info) Description 11/09/2023 9:30 AM FARM GENERAL MANAGER - 11/09/2023 11:59 PM FARM GENERAL MANAGER Hospital Encounter [facility] Vascular Services [address] [address] Jarett Reinoso MD [address] [place] [address] Discharge Disposition: Home or Self Care Social [...] Sign Reading Time Taken Comments Blood Pressure 200/74 11/09/2023 10:30 AM FARM GENERAL MANAGER Pulse 59 11/09/2023 10:30 AM FARM GENERAL MANAGER Temperature 36.7 ??C (98.1 ??F) 11/09/2023 9:55 AM CS T Respiratory Rate 26 11/09/2023 10:30 AM FARM GENERAL MANAGER Oxygen Saturation 93% 11/09/2023 10:30 AM FARM GENERAL MANAGER Inhaled Oxygen Concentration - - Weight 54.4 kg (120 lb) 11/09/2023 9:55 AM FARM GENERAL MANAGER Height 175.3 cm (5' 9 ) 11/09/2023 9:55 AM FARM GENERAL MANAGER Body Mass Index 17.72 11/09/2023 9:55 AM FARM GENERAL MANAGER documented in this encounter Functional Status Functional [...] Take 1 tablet by mouth once daily documented as of this encounter Progress Notes * Marilou Junior, RN - 11/09/2023 9:57 AM CST Pt has left upper arm AVG that is more pulsatile towards arterial anastomosis. Slightly pulsatile distally. GENERAL MANAGER documented in this encounter H&P Notes * Jarett Reinoso MD - 11/09/2023 10:02 AM CST Vascular services H&P UPDATE/SEDATION PLAN OF CARE Chief Complaint: ESRD History of Present Illness: same Past Medical History Illnesses: Past Medical History: Diagnosis Date ??? Anxiety ??? CKD (chronic kidney disease) stage 3, GFR 30-59 ml/min ([facility] proteinuria; Bee Raiser = Dr. Reyes ??? CVA (cerebral vascular accident) ([facility]) 08/14/2022 ??? Dementia without behavioral disturbance ([facility]) mild ??? ESRD on dialysis ([facility]) [facility] , 07/06/23 ??? Gout ??? HTN (hypertension), benign ??? 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 Morphea ??? Osteopenia Allergies: Allergies Allergen Reactions ??? Ramipril Other Other reaction(s): Other (See Comments) Kidney Damage Kidney Damage Medications: Current Outpatient Medications Medication Sig Dispense Refill ??? acetaminophen (Tylenol) [...] Take 1 tablet by mouth once daily Current Facility-Administered Medications Medication Dose Route Frequency Provider Last Rate Last Admin ??? 0.9% NaCl infusion Intravenous intra-Procedure continuous Jarett Reinoso MD ??? fentaNYL (PF) (Sublimaze) injection 25-50 mcg 25-50 mcg Intravenous intra- Procedure multiple Jarett Reinoso MD ??? iopamidol (Isovue 300) 61 % contrast Intravenous intra-Procedure multiple Jarett Reinoso MD ??? lidocaine PF (Xylocaine MPF) 1 % injection Infiltration intra-Procedure multiple Jarett Reinoso MD ??? midazolam (Versed) injection 0.5-2 mg 0.5-2 mg Intravenous intra-Procedure multiple Jarett Reinoso MD ??? ondansetron (Zofran) injection 4 mg 4 mg Intravenous intra-Procedure once Jarett Reinoso MD EXAM: BP 156/68 Pulse 64 Temp 98.1 ??F (36.7 ??C) Resp 20 Ht 1.753 m (5' 9 ) Wt 54.4 kg (120 lb) SpO2 96% General appearance: alert, cooperative, no distress Heart: RRR s M Lungs: CTAB Extremities: no cyanosis or edema Assessment/Plan: - Dialysis fistulogram with possible intervention Sedation: Fentanyl and Versed 1% plain lidocaine Expected Level: Moderate Sedation Indication: Sedation is required to allow for performance of procedure. Consent: Risks, benefits and alternatives were discussed with patient and consent for procedure wasobtained. PO Intake: Clear Liquids > 2 hours ASA Class: Class 3 - Severe Systemic Disease, Definite Functional Limitations Airway: Patent Monitoring: supervisor coil winding, continuous pulse oximetry, frequent blood pressure checks, level of consciousness, IV access and constant attendance by RN until patient recovered. GENERAL MANAGER documented in this encounter Procedure Notes * Jarett Reinoso MD - 11/09/2023 10:25 AM CSTAssociated Order(s): IR ANGIO AV SHUNT IMAGING Interventional Radiology Post Procedure-Progress Notes Surgeon: Jarett Reinoso MD Enterprise Resource Planner: None Pre and Post Procedure diagnosis: Additional Diagnosis: ESRD (end stage renal disease) ([facility]) [N18.6]; Additional Information regarding Pre & Post Procedure Diagnoses can be found in the Pre-Procedure H&P Immediately prior to start of procedure, final pre-procedure assessment was completed and medications were reviewed. Anesthesia: Local Technical Procedure Performed: Image guided procedure - Dialysis fistulogram and venous angioplasty; As documented in Pre-Procedure H&P Side of Procedure: left Findings: As expected. See full imaging dictation Disposition: Home Status: Stable Surgical Drain or Retained Pack: None. Standard Skin dressing applied. Complications: None; See full imaging dictation Findings Inherent to Procedure: None; See full imaging dictation Estimated blood loss: Negligible. Specimen(s): none Operative note: The patient has a left brachiobasilic dialysis graft. The overlying skin was sterilely prepped and draped. 1% lidocaine local anesthesia was administered. Access was obtained with a microintroducer set in the arterial access zone. A fistulogram was performed through the 5 Sri [place]ankan transitional sheath. This shows recurrent short segment stenosis in the upper basilic vein , estimated at 80%. There isfilling of collaterals in the left upper arm. A short 6 Sri [place]ankan sheath was placed. Angioplasty was performed with an 8 mm diameter by 4 cm Conquest balloon. With the balloon inflated, the arterial anastomosis was refluxed and is non-stenotic. Post angioplasty films show jew of a normal size lumen. The left axillary vein, subclavian vein, innominate vein, and superior vena cava are all widely patent. The sheath was removed and hemostasis achieved with manual compression. Contrast was 15 cc of Isovue-300. Radiation dose was 0.9 mGy. Impression: Recurrent high-grade left basilic venous stenosis, dilated to 8 mm with a high- pressure balloon. GENERAL MANAGER documented in this encounter Plan of Treatment Upcoming Encounters Date Type Department Care Team (Late st Contact Info) Description 12/11/2024 10:30 AM FARM GENERAL MANAGER Appointment [facility] Vascular Services [address] [facility], [address] [place], [place] [id number] Jarett Reinoso MD [address] [place], [place] [id number] Christine Benitez MD [address] [place] [address] Keyshawn Krueger MD [address] [place] [address] [place] [address] [address] documented as of this encounter Procedures Procedure Name Priority Date/Time Associated Diagnosis Comments CARDIAC RHYTHM STRIP ORDER 11/11/2023 1:46 AM FARM GENERAL MANAGER IR ANGIO AV SHUNT IMAGING Routine 11/09/2023 10:24 AM FARM GENERAL MANAGER ESRD (end stage renal disease) ([facility]) documented in this encounter Results * CARDIAC RHYTHM STRIP ORDER (11/11/2023 1:46 AM FARM GENERAL MANAGER) Narrative 11/11/2023 1:46 AM FARM GENERAL MANAGER Ordered by an unspecified provider. Scanned Document CARDIAC SERVICES ORD ERABLES * IR ANGIO AV SHUNT IMAGING (11/09/2023 10:24 AM FARM GENERAL MANAGER) Anatomical Region Laterality Modality Lower Extremity, Upper Extremity, Chest X-Ray Angiography Narrative 11/09/2023 10:25 AM FARM GENERAL MANAGER Jarett Reinoso MD ? 11/09/2023 10:30 AM Interventional Radiology Post Procedure-Progress Notes Surgeon: Jarett Reinoso MD Enterprise Resource Planner: None Pre and Post Procedure diagnosis: Additional Diagnosis: ESRD (end stage renal disease) ([facility]) [N18.6]; Additional Information regarding Pre & Post Procedure Diagnoses can be found in the Pre-Procedure H&P Immediately prior to start of procedure, final pre-procedure assessment was completed and medications were reviewed. Anesthesia: Local Technical Procedure Performed: Image guided procedure - Dialysis fistulogram and venous angioplasty; As documented in Pre-Procedure H&P Side of Procedure: left Findings: As expected. See full imaging dictation Disposition: Home Status: Stable Surgical Drain or Retained Pack: None. Standard Skin dressing applied. Complications: None; See full imaging dictation Findings Inherent to Procedure: None; See full imaging dictation Estimated blood loss: Negligible. Specimen(s): none Operative note: The patient has a left brachiobasilic dialysis graft. ??The overlying skin was sterilely prepped and draped. ??1% lidocaine local anesthesia was administered. ??Access was obtained with a microintroducer set in the arterial access zone. ??A fistulogram was performed through the 5 [place]ankan transitional sheath. ??This shows recurrent short segment stenosis in the upper basilic vein , estimated at 80%. ??There is filling of collaterals in the left upper arm. A short 6 [place]ankan sheath was placed. ??Angioplasty was performed with an 8 mm diameter by 4 cm Conquest balloon. ??With the balloon inflated, the arterial anastomosis was refluxed and is non-stenotic. ??Post angioplasty films show jew of a normal size lumen. ??The left axillary vein, subclavian vein, innominate vein, and superior vena cava are all widely patent. ?? The sheath was removed and hemostasis achieved with manual compression. ??Contrast was 15 cc of Isovue-300. ??Radiation dose was 0.9 mGy. ?? Impression: Recurrent high-grade left basilic venous stenosis, dilated to 8 mm with a high-pressure balloon. Jarett Reinoso MD IR ORDERABLES documented in this encounter Visit Diagnoses Diagnosis ESRD (end stage renal disease) (HCC)- Primary End stage renal disease documented in this encounter Administered Medications Inactive Administered Medications - up to 3 most recent administrations Medication Order MAR Action Action Date Dose Rate Site 0.9% NaCl infusion at 50 mL/hr, Intravenous, INTRA-PROCEDURE CONTINUOUS, Starting on 11/09/23 at 1000, Until Rebekah 11/10/23 at 0141, Intra-procedure (IR) $ New Bag/Syringe 11/09/2023 10:26 AM FARM GENERAL MANAGER 30 mL 50 mL/hr iopamidol (Isovue 300) 61 % contrast Intravenous, INTRA-PROCEDURE MULTIPLE, Starting on Tue11/09/23 at 0954, Until Rebekah 11/10/23 at 0141, Intra/Post-procedure $ Given - Contrast 11/09/2023 10:26 AM FARM GENERAL MANAGER 15 mL lidocaine (Xylocaine PF) 1% injection ADS Med 1 dose, Starting on Tue11/09/23 at 0800, Until Tue11/09/23 at 1016, Created by cabinet override lidocaine PF (Xylocaine MPF) 1 % injection Infiltration, INTRA-PROCEDURE MULTIPLE, Starting on Tue11/09/23 at 0954, Until Rebekah 11/10/23 at 0141, Intra-procedure (IR) $ Given 11/09/2023 10:16 AM FARM GENERAL MANAGER 10 mg documented in this encounter Care Teams Machine Greaser Relationship Specialty Start Date End Date Yanira Meyers, MANUFACTURING MILLWRIGHT-DIESEL POWERPLANT MECHANIC [facility] [place] [address] PCP - General Nurse Practitioner Family 06/15/23 documented as of this encounter
--- OUTSIDE RECORDS SUMMARY | 2024-10-15 16:31 | XMS_ITS | Clinical Summary ---
Author Organization [facility] Address [address] [place] [address] Care Team Providers Care Cook Dinner Name Role Phone RuizkyrieYanira LAN ANALYST-COLORER MACHINE Primary Care Provid er Source Comments [facility],non-owned Affiliates and Associated Physician Practices is amultiple site organization consisting of ambulatory clinics and hospital sitesin [place], [place], [place] and [place]. This disclosure is being madepursuant to the Care Everywhere program and may not contain all information available regarding this patient. Last updated 18[employer] Allergies Active Allergy Reactions Criticality Noted Date Comments Ramipril Other Low 05/18/2017 Other reaction(s): Other (See Comments) Kidney Damage Kidney Damage Medications * Be aware that medications may not be up to date on this document. Alwaysverify current medications with the patient. Medication Sig Dispensed Refills Start Date End Date Status acetaminophen (Tylenol) 500 MG tablet Take 1 (one) tablet by mouth every 4 hours as needed for Fever, Pain or Headache Maximum allowable Acetaminophen amount = 4 Grams (4000 mg) / 24 hours. 09/09/2022 Active epoetin deyanira-EPBX (Retacrit) 4000 UNIT/ML injection 2 mL by Intravenous route Give in dialysis on Tuesday, & Tuesday09/11/2022 Active busPIRone (Buspar) 5 MG tablet Take 1 (one) tablet by mouth 3 times daily 02/23/2023 Active lanthanum (Fosrenol) 1000 MG chew tablet Take 1 (one) tablet by mouth 3 times daily with meals 03/23/2023 Active Multiple Vitamins-Minerals (PRESERVISION AREDS 2 PO) Take 1 tablet by mouth once daily Active ALPRAZolam (Xanax) 0.25 MG tablet Take 1 (one) tablet by mouth 3 times daily as needed for Anxiety Active labetalol (Normodyne; Trandate) 300 MG tablet Take 1 (one) tablet by mouth 2 times daily 04/07/2023 Active escitalopram (Lexapro) 5 MG half tablet Take by mouth once daily Active memantine (Namenda) 5 MG tablet Take 1 (one) tablet by mouth 2 times daily Active amLODIPine (Norvasc) 10 MG tablet Take 1 (one) tablet by mouth at bedtime 10/05/2023 Active losartan (Cozaar) 50 MG tablet Take 1 (one) tablet by mouth once daily 10/06/2023 Active Velphoro 500 MG 12/19/2023 Active Active Problems Problem Noted Date Diagnosed Date [...] 08/27/2011 08/23/2022 Senile osteoporosis 06/23/2010 08/23/20 22 Encounters Date Type Department Care Team Description 08/16/2024 9:21 AM CDT - 08/16/2024 11:59 PM CDT Hospital Encounter [facility] Vascular Services [address] [facility], [address] [place] [id number] Jarett Reinoso MD Majeed, M. Fazal, MD Patwary, Mahbubul, MD Javed, Armando Anderson, DO Discharge Disposition: Home or Self Care from Last 3 Months Immunizations Name Administration Dates Next Due INFLUENZA VACCINE, TRIV. (AF LURIA, FLUZONE TRIVALENT; 6MO+) (IIV3) 08/06/2013,08/27/2011 FLU, HISTORIC VACCINE 08/22/2020 INFLUENZA 08/22/2020, 8,08/05/2017,2014 INFLUENZA VACCINE, ADJUVANTE D, QUADR. (FLUAD QUADRIVALENT; 65Y+) (AIIV4) 09/28/2021 INFLUENZA VACCINE, HIGH-DOSE , QUADR. (FLUZONE HIGH-DOSE QUADRIVALENT; 65Y+), 0.7 ML (HD-IIV4) 08/22/2020,08/29/2019,08/29/2019,2017,08/05/2017,09/09/2015 PNEUMOCOCCAL PPSV23 09/08/2018 Pneumococcal Pcv13 Conj 08/05/2017 TDAP, HISTORIC VACCINE 09/28/2021 iNFLUENZA VACCINE, RECOM-ALDANA, QUADR. (FLUBLOCK QUADRIVALENT; 18Y+) (RIV4) 12/28/2021 Family History Medical History Relation Name Comments Hypertension Brother Hypertension Father Relation Name Status Comments Brother Father Social History Tobacco Use Types Packs/Day Years [...] Mass Index 19.77 08/16/2024 9:45 AM CDT Plan of Treatment Upcoming Encounters Date Type Department Care Team (Late st Contact Info) Description 12/11/2024 10:30 AM SLOTTER OPERATOR HELPER Appointment [facility] Health Vascular Services [address] [facility] [address] [place] [address] Jarett Reinoso MD [address] [place] [address] Christine Benitez MD [address] [place] [address] Keyshawn Krueger MD [address] [place] [address] [place] [address] [phone] Health Maintenance Due Date Last Done Comments BONE DENSITY TESTING 1941 MEDICARE AWV ? 12 MONTHS 1941 ZOSTER VACCINE (1 of 2) 1991 Respiratory Syncytial Virus (RSV) Vaccine Pt: or over 60 yrs (1 - 1-dose 75+ series) 2016 DEPRESSION SCREENING 10/31/2023 08/15/2022 COVID-19 VACCINE ( season) 2024 04/21/2022, 04/21/2022, 08/04/2021, Additional history exists INFLUENZA VACCINE (#1) 2024 2, 09/28/2021, 08/22/2020, Additional history exists DTAP/TDAP/TD VACCINES (2 - Td or Tdap) 09/28/2031 09/28/2021 PNEUMOCOCCAL VACCINE 65+ Completed 09/08/2018, 03/2017 HEPATITIS B VACCINE Aged Out No longe r eligible based on patient's age to complete this topic HIB VACCINE Aged Out No longer eligi ble based on patient's age to complete this topic HPV VACCINE Aged Out No longer eligi ble based on patient's age to complete this topic MENINGOCOCCAL VACCINE Aged Out No jose sharon eligible based on patient's age to complete this topic Medical Devices Implanted Type Area Territory Sales Consultant Device Identifier Shelf Expiration Date Model / Serial / Lot Kit Tamiko Drflw Embosafe Chrnc Dlys Implanted:Qty: 1 on 08/25/2022 at [facility] Right: Chest [employer] 11/30/2024 [id number] / / [id number] Graft Vasc 4-7mm 45cm Grtx Std Wl Tpr - [id number] Implanted:Qty: 1 on 06/15/2023 by Leland Thompson MD at [facility] Left: Arm [employer] 03/05/2028 [id number] / Procedures Procedure Name Priority Date/Time Associated Diagnosis Comments CARDIAC RHYTHM STRIP ORDER 08/21/2024 4:38 PM CDT from Last 3 Months Results * CARDIAC RHYTHM STRIP ORDER (08/21/2024 4:38 PM CDT) Narrative 08/21/2024 4:38 PM CDT Ordered by an unspecified provider. Scanned Document CARDIAC SERVICES ORD ERABLES from Last 3 Months Advance Directives Documents on File Type Date Recorded Patient Brokerage Office Manager Expl anation Adv Directive/Living Will/POA 09/03/2022 11:51 AM Adv Directive/Living Will/POA 08/27/2022 5:38 PM * Full Code (Latest Code Status on File) Date Activated Date Inactivated Comments 09/30/2023 12:06 AM 10/05/2023 3:27 PM * Full Code Date Activated Date Inactivated Comments 08/15/2022 3:11 AM 09/09/2022 7:35 PM Care Teams Cook Dinner Relationship Specialty Start Date End Date Yanira Meyers, LAN ANALYST-COLORER MACHINE [address] [place] [address] PCP - General Nurse Practitioner Family 06/15/23
--- OUTSIDE RECORDS SUMMARY | 2024-10-15 16:31 | XMS_ITS | Referral Summary ---
Author Organization [facility] Address [address] [facility] [place] [address] Care Team Providers Care Low Pressure Boiler Tender Name Role Phone Yanira Meyers BATTERY ASSEMBLER DRY CELL-SERVICE MANAGER Primary Care Provid er Source Comments [facility],non-owned Affiliates and Associated Physician Practices is amultiple site organization consisting of ambulatory clinics and hospital sitesin [place], [place], [place] and [place]. This disclosure is being madepursuant to the Care Everywhere program and may not contain all information available regarding this patient. Last updated 18.[facility] Encounters Date Type Department Care Team Description 08/16/2024 9:21 AM CDT - 08/16/2024 11:59 PM CDT Hospital Encounter [facility] Vascular Services [address] [place] [address], [place] [phone] Jarett Reinoso MD Majeed, M. Fazal, MD Patwary, Mahbubul, MD Javed, Armando Anderson, DO Discharge Disposition: Home or Self Care from Last 3 Months Allergies Active Allergy Reactions Criticality Noted Date [...] influenza 08/27/2011 08/23/2022 Senile osteoporosis 06/23/2010 08/23/20 Immunizations Name Administration Dates Next Due INFLUENZA [...] RECOM-ALDANA, QUADR. (FLUBLOCK QUADRIVALENT; 18Y+) (RIV4) 12/28/2021 Social History Tobacco Use Types Packs/Day Years [...] Mass Index 19.77 08/16/2024 9:45 AM CDT Functional Status Functional Status Response Date of [...] person have difficulty concentrating/remembering/making decisions? Yes 08/15/2022 Plan of Treatment Upcoming Encounters Date Type Department Care Team (Late st Contact Info) Description 12/11/2024 10:30 AM PERFORATOR OPERATOR OIL WELL Appointment [facility] Health Vascular Services [address] [facility] [place], [address] [address] Jarett Reinoso MD [address] [place] [address] Christine Benitez MD [address] [place] [phone] Keyshawn Krueger MD [address] [place], [place] [phone] [place] [address] [phone] Medical Devices Implanted Type Area Associate Account Manager Device Identifier Shelf Expiration Date Model / Serial / Lot Kit Durathdinesh Littlejohnflmikhail Embosafe Chrnc Dlys Implanted:Qty: 1 on 08/25/2022 at [facility] Right: Chest [employer] 11/30/2024 [id number] / / [id number] Graft Vasc 4-7mm 45cm Grtx Std Tpr - [id number] Implanted:Qty: 1 on 06/15/2023 by Leland Thompson MD at [facility] Left: Arm [employer] 03/05/2028 [id number] / [id number] / Procedures Procedure Name Priority Date/Time Associated Diagnosis Comments CARDIAC RHYTHM STRIP ORDER 08/21/2024 4:38 PM CDT from Last 3 Months Results * CARDIAC RHYTHM STRIP ORDER (08/21/2024 4:38 PM CDT) Narrative 08/21/2024 4:38 PM CDT Ordered by an unspecified provider. Scanned Document CARDIAC SERVICES ORD ERABLES from Last 3 Months Advance Directives Documents on File Type Date Recorded Patient Network Intelligence Analyst Expl anation Adv Directive/Living Will/POA 09/03/2022 11:51 AM Adv Directive/Living Will/POA 08/27/2022 5:38 PM * Full Code (Latest Code Status on File) Date Activated Date Inactivated Comments 09/30/2023 12:06 AM 10/05/2023 3:27 PM * Full Code Date Activated Date Inactivated Comments 08/15/2022 3:11 AM 09/09/2022 7:35 PM Care Teams Low Pressure Boiler Tender Relationship Specialty Start Date End Date Yanira Meyers, BATTERY ASSEMBLER DRY CELL-SERVICE MANAGER [address] [place] [address] PCP - General Nurse Practitioner Family 06/15/23
--- OUTSIDE RECORDS SUMMARY | 2024-10-15 16:31 | XMS_ITS | Encounter Summary ---
Author Organization [facility] Address [address] [facility] [place] [address] Care Team Providers Care Auto Striper Name Role Phone Yanira Meyers DISTANCE LEARNING COORDINATOR-ENROLLMENT MANAGEMENT COORDINATOR Primary Care Provid er Reason for Referral * (Routine) - Open Specialty Diagnoses / Procedures Referred By Abena torrez Referred To Contact Vascular Lab Procedures Follow up with provider Armando Ferro DO [facility] [address] [address] [facility] [address] [place] [address], [address] [place] [address] Referral ID Status Reason Start Date Expiration Date Visits Re quested Visits Authorized [id number] Open 08/16/2024 08/16/2025 1 1 Reason for Visit * Radiology Services (Routine) - Closed Specialty Diagnoses / Procedures Referred By Abena torrez Referred To Contact Vascular Lab Diagnoses ESRD (end stage renal disease) (HCC) Procedures IR ANGIO AV SHUNT IMAGING Jarett Reinoso MD [address] [place] [address] [facility] [address] [place] [address], [address] [place] [address] Referral ID Status Reason Start Date Expiration Date Visits Re quested Visits Authorized [id number] Closed 11/09/2023 11/08/2024 1 1 Encounter Details Date Type Department Care Team (Latest Contact Info) Description 08/16/2024 9:21 AM CDT - 08/16/2024 11:59 PM CDT Hospital Encounter [facility] Vascular Services [address] [facility], [facility] [address] [place] [address] Jarett Reinoso MD [address] [place], [place] [id number] Christine Benitez MD [address] [place] [address] Keyshawn Krueger MD [address] [place], [place] [id number] [place] [address] [address] Discharge Disposition: Home or Self Care Social [...] 08/16/2024 10:50 AM CDT Inhaled Oxygen Concentration - - Weight 59 kg (130 lb) 08/16/2024 9:45 AM CDT Height 172.7 cm (5' 8 ) 08/16/2024 9:45 AM CDT Body Mass Index 19.77 08/16/2024 9:45 AM CDT documented in this encounter Functional [...] as of this encounter Progress Notes * Hazel Gomez RN - 08/16/2024 9:49 AM CDT Patient has left upper arm access, pulsatile. documented in this encounter H&P Notes * Armando Ferro DO - 08/16/2024 10:17 AM CDT Chief Complaint ESRD History and Physical Kirsty Rea is a 83 year old female with ESRD on HD. Patient was noted to have pulsatile flow inher left arm AV access. She was offered left arm fistulagram. Past Medical History: Diagnosis Date Anxiety CKD (chronic kidney disease) stage 3, GFR 30-59 ml/min ([facility]) proteinuria; Promotions Coordinator = Dr. 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 Morphea Osteopenia Past Surgical History: Procedure Laterality Date Appendectomy Breast Reduction Cholecystectomy, Laparoscopic HX FRACTURE TX INSERTION GRAFT ARTERIO-VENOUS (AV) Left 06/15/2023 Left; LEFT UPPER ARM ARTERIOVENOUS GRAFT OOPHORECTOMY 1972 Parathyroidectomy 1999 Allergies Allergen Reactions Ramipril Other Other reaction(s): Other (See Comments) Kidney Damage Kidney Damage Current Outpatient Medications on File Prior to Encounter Medication Sig Dispense Refill acetaminophen (Tylenol) 500 [...] by mouth 3 times daily with meals losartan (Cozaar) 50 MG tablet Take 1 (one) tablet by mouth once daily memantine (Namenda) 5 MG tablet Take 1 (one) tablet by mouth 2 times daily Multiple Vitamins-Minerals (PRESERVISION AREDS 2 PO) Take 1 tablet by mouth once daily Velphoro 500 MG No current facility-administered medications on file prior to encounter. Social History Tobacco Use Smoking status: Former Current packs/day: 0.00 Average packs/day: 1 pack/day for 18.0 years (18.0 ttl pk-yrs) Types: Cigarettes Start date: 10/31/1965 Quit date: 10/31/1983 Years since quittin.8 Smokeless tobacco: Never Vaping Use Vaping status: Never Used Substance Use Topics Alcohol use: Yes Alcohol/week: 0.8 standard drinks of alcohol Types: 1 Standard drinks or equivalent per week Comment: occasionally Drug use: No Family History Problem Relation Name Age of Onset Hypertension Father Hypertension Brother Physical Examination Constitutional: Vital signs [...] wishes to proceed. documented in this encounter OR Notes * Operative - Armando Ferro DO - 08/16/2024 12:41 PM CDT Vascular [place] Operative Note [facility] Name: Kirsty Rea Age: [age] year old Sex: female Preoperative diagnosis: End-stage renal disease on hemodialysis Postoperative diagnosis: Same Surgeon: Dr. Ferro Thread Machine Operator: [facility] Staff Procedure: Left upper extremity AV fistulogram Balloon angioplasty of left upper extremity AV fistula outflow venous stenosis using 8 x 40 mm Conquest balloon. EBL: Minimal Implants: None A total of 15 ml of Isovue 300 contrast was used for the examination. Fluoroscopy exposure was 1.3 milligray and is a cumulative radiation dose. This represents the number of still images and subtracted images obtained and documented for the exam in PACS. Moderate IV conscious sedation was administered by Dr. Ferro using 50 mcg of Fentanyl. The patient was independently monitored by a registered nurse for 20 minutes using automated blood pressure, EKGand pulse oximetry. There were no complications. Findings: Patient was found to have high-grade flow-limiting stenosis at the venous outflow segmentat the axillary vein. This was treated with balloon angioplasty using 8 x 40 mm Conquest balloon with excellent postprocedure angiographic results. Complications: None Procedure: Patient was marked identified in preoperative holding area. Informed consent was obtained the patient after explaining risks, benefits and alternatives of the procedure. All questions regarding the procedure answered in detail. Patient was taken to the operating room placed in supine position OR table. Patient's left upper extremity was prepped and draped usual sterile fashion. Time-out was performed confirming correct patient, laterality, procedure. After giving local anesthesia patient's leftupper extremity AV fistula was accessed using micropuncture needle. Using Seldinger technique a short 6 Cypriot sheath was advanced into the left upper extremity AV fistula. A fistulogram was then perf ormed that showed high-grade flow-limiting stenosis at the venous outflow segment at the axillary vein. There was no evidence of inflow stenosis or central venous stenosis. Area of stenosis was traversed with Bentson wire. Balloon angioplasty of stenotic segment was performed using 8 x 40 mm Conquest balloon. Post balloon angioplasty patient was found to have no residual stenosis and brisk flow of contrast throughout the left upper extremity AV fistula. All catheters and wires were then removed. Manual pressure was held at the access site. Hemostasis was ensured and sterile dressing was applied over the access site. Patient tolerated the procedure well. There were no complications. Operative findings were discussed with patient after she was fully recover from anesthesia. All questions regarding the procedure answered in detail. Armando Ferro DO [facility] [employer] Phone: Exchange: [phone] documented in this encounter Plan of Treatment Upcoming Encounters Date Type Department Care Team (Late st Contact Info) Description 12/11/2024 10:30 AM TOOL FILER Appointment [facility] Health Vascular Services [address] [facility] [address] [place] [address] Jarett Reinoso MD [address] [place], [place] [phone] Christine Benitez MD [address] [place] [phone] Keyshawn Krueger MD [address] [place] [address] Armando Ferro, [address] [place] [address] Pending Results Name Type Priority Associated Diagnoses Date /Time IR ANGIO AV SHUNT IMAGING Imaging Routine ESRD (end stage renal disease) ([facility]) 08/16/2024 10:42 AM CDT documented as of this encounter Procedures Procedure Name Priority Date/Time Associated Diagnosis Comments CARDIAC RHYTHM STRIP ORDER 08/21/2024 4:38 PM CDT documented in this encounter Results * CARDIAC RHYTHM STRIP ORDER (08/21/2024 4:38 PM CDT) Narrative 08/21/2024 4:38 PM CDT Ordered by an unspecified provider. Scanned Document CARDIAC SERVICES ORD ERABLES documented in this encounter Visit Diagnoses Diagnosis ESRD (end stage renal disease) (HCC) End stage renal disease documented in this encounter Administered Medications Inactive Administered Medications - up to 3 most recent administrations Medication Order MAR Action Action Date Dose Rate Site 0.9% NaCl infusion at 50 mL/hr, Intravenous, INTRA-PROCEDURE MULTIPLE, Starting on Rebekah 08/16/24 at 1002, Until Tue08/17/24 at 0132, Intra-procedure (IR) $ New Bag/Syringe 08/16/2024 10:42 AM CDT 30 mL 50 mL/hr fentaNYL (PF) (Sublimaze) injection 25-100 mcg 25-100 mcg, Intravenous, INTRA-PROCEDURE MULTIPLE, Starting on Rebekah 08/16/24 at 1002, Until Tue08/17/24 at 0132, Administer every 5 minutes during [...] tolerate oral intake, Intra-procedure (IR) $ Given 08/16/2024 10:38 AM CDT 50 mcg iopamidol (Isovue 300) 61 % contrast Intravenous, INTRA-PROCEDURE MULTIPLE, Starting on Rebekah 08/16/24 at 1002, Until Tue08/17/24 at 0132, Intra/Post-procedure $ Given - Contrast 08/16/2024 10:42 AM CDT 15 mL lidocaine (Xylocaine) 1 % injection Infiltration, INTRA-PROCEDURE MULTIPLE, Starting on Rebekah 08/16/24 at 1002, Until Tue08/17/24 at 0132, Intra-procedure (IR) $ Given 08/16/2024 10:35 AM CDT 10 mg documented in this encounter Care Teams Auto Striper Relationship Specialty Start Date End Date Yanira Meyers, DOUGIE-ENROLLMENT MANAGEMENT COORDINATOR [address] [place] [phone] PCP - General Nurse Practitioner Family 06/15/23 documented as of this encounter
--- OUTSIDE RECORDS SUMMARY | 2024-10-15 16:32 | XMS_ITS | Encounter Summary ---
Author Organization [facility] Address [address] [place] [address] Care Team Providers Care Card Scraper Name Role Phone Yanira Meyers SENIOR SCHEDULER-TELEPHONE SUPERVISOR Primary Care Provid er Encounter Details Date Type Department Care Team (Latest Contact Info) Description 09/29/2023 Travel Social History Tobacco Use Types Packs/Day [...] st Contact Info) Description 12/11/2024 10:30 AM TERMINAL MANAGER Appoint[address] [facility] Vascular Services [address] [facility], [address] [place], [place] [phone] Jarett Reinoso MD [address] [place], [place] [phone] Christine Benitez MD [address] [place] [address] Keyshawn Krueger MD [address] [place] [address] [place] [address] [phone] documented as of this encounter Visit Diagnoses Not on filedocumented in this encounter Care Teams Card Scraper Relationship Specialty Start Date End Date Yanira Meyers, DOUGIE-TELEPHONE SUPERVISOR [address] [place] [phone] PCP - General Nurse Practitioner Family 06/15/23 documented as of this encounter
--- OUTSIDE RECORDS SUMMARY | 2024-10-15 16:32 | XMS_ITS | Encounter Summary ---
Author Organization [facility] Address [address] [place] [address] Care Team Providers Care Clinical Rehab Liaison Name Role Phone Diana Mao MD Primary Care Provider [phone] Reason for Visit * Radiology Services (Routine) - Closed Specialty Diagnoses / Procedures Referred By Abena torrez Referred To Contact Diagnoses ESRD (end stage renal disease) (HCC) Procedures VAS BILAT MAPPING [place] [address] [facility] [address] [place] [address] Referral ID Status Reason Start Date Expiration Date Visits Re quested Visits Authorized [id number] Closed 03/31/2023 03/30/2024 1 1 Encounter Details Date Type Department Care Team (Latest Contact Info) Description 03/31/2023 8:30 AM CDT - 03/31/2023 2:00 PM T Hospital Encounter [facility] Health Vascular Services [address] [facility], [address] [place] [address] [place] [address] [facility] [address] [place] [address] Discharge Disposition: Home or Self Care Social History Tobacco Use Types Packs/Day Years Used Date Smoking Tobacco: Former Cigarettes 1 18 0 10/31/1965 - 10/31/1983 Smokeless Tobacco: Never Alcohol Use Standard Drinks/Week Comments Yes 0.8 (1 standard drink = 0.6 oz p ure alcohol) AUDIT-C Answer Date Recorded Q1: How often [...] Grams (4000 mg) / 24 hours. 09/09/2022 busPIRone (Buspar) 5 MG tablet Take 1 (one) tablet by mouth 3 times daily 02/23/2023 epoetin deyanira-EPBX (Retacrit) 4000 UNIT/ML injection 2 mL by Intravenous route Give in dialysis on Tuesday, & Tuesday09/11/2022 lanthanum (Fosrenol) 1000 MG chew tablet Take 1 (one) tablet by mouth 3 times daily with meals 03/23/2023 albuterol HFA (Proventil; Ventolin; Proair) 108 (90 Base) MCG/ACT inhaler Inhale 2 (two) puffs by mouth every 6 hours as needed for Shortness of Breath or Wheezing 09/09/2022 04/12/2023 ALPRAZolam (Xanax) 0.25 MG tablet 11/12/2022 04/07/2023 cloNIDine (Catapres) 0.2 MG/24HR patch Apply 1 (one) patch to skin every 7 days 09/16/2022 04/07/2023 hydrALAZINE (Apresoline) 100 MG tablet Take 1 (one) tablet by mouth 3 times daily 09/09/2022 04/07/2023 hydroCHLOROthiazide (Microzide) 12.5 MG capsule Take 1 (one) capsule by mouth once daily 03/29/2023 10/05/2023 labetalol (Normodyne; Trandate) 200 MG tablet Take 1.5 (one and one-half) tablets by mouth 2 times daily 01/05/2023 04/12/2023 lisinopril (Prinivil; Zestril) 20 MG tablet Take 1 (one) tablet by mouth 2 times daily 12/24/2022 10/05/2023 losartan (Cozaar) 100 MG tablet Take 1 (one) tablet by mouth once daily 09/10/2022 04/07/2023 olopatadine (PATADAY) 0.2 % ophthalmic solutionIndications: Itchy eyes Instill 1 (one) drop into both eyes once daily 2.5 mL 12/28/2021 04/07/2023 [place]-3 Fatty Acids (FISH OIL) 1200 MG 3 oxybutynin (DITROPAN) 5 MG tablet TAKE 1 TABLET BY MOUTH EVERY DAY 90 tablet 1 12/25/2021 04/07/2023 polyethylene glycol 3350 (Miralax) 17 g packet Take 17 (seventeen) g by mouth 2 times daily 09/09/2022 3 senna (Senokot) 8.6 MG tablet Take 1 (one) tablet by mouth once daily as needed for Constipation 09/09/2022 04/07/20 23 senna-docusate (Senokot-S) 8.6-50 MG tablet Take 1 (one) tablet by mouth 2 times daily 09/09/2022 04/07/2023 vitamin B complex w/ C 60mg & FA 0.8mg (Nephro-Donna) 0.8 MG TABS tablet Take 1 (one) tablet by mouth once daily 09/10/2022 04/07/2023 documented as of this encounter Plan of Treatment Upcoming Encounters Date Type Department Care Team (Late st Contact Info) Description 12/11/2024 10:30 AM LOGISTICS TEAM LEADER Appointment [facility] Vascular Services [address] [facility], [address] [place] [address] Jarett Reinoso MD [address] [place], [place] [phone] Christine Benitez MD [address] [place] [phone] Keyshawn Krueger MD [address] [place] [address] [place] [address] [address] documented as of this encounter Procedures Procedure Name Priority Date/Time Associated Diagnosis Comments VAS BILAT MAPPING FOR HEMODIALYSIS Routine 03/31/2023 3:01 PM CDT ESRD (end stage renal disease) (HCC) documented in this encounter Results * VAS BILAT MAPPING FOR HEMODIALYSIS (03/31/2023 3:01 PM CDT) Anatomical Region Laterality Modality Lower Extremity, Upper Extremity Ultrasound 03/31/2023 2:47 PM CDT Narrative Procedure Note Andrew Rothman MD - 04/02/2023 [facility] Vascular [facility] [address] [facility], [address] [place] [address] Vessel Mapping for Hemodialysis Report Pat.Name: YOLANDE REA.ID: [id number] St.Date: 03/31/2023 Refer.MD: RON BLACKWELL Exam Time: 2:47:00 PM Study Type:Vessel Mapping for Hemodialysis Age: 2 1940,82Y Sex: FEMALE Sonogrphr: Agustín Valentin RVT Pat. Stat.:Outpatient CPT - 4: 74832 Reason for Study: End Stage Renal Disease Procedures: Vessel Mapping for Hemodialysis Race: 1 Visit ID: [id number] ++++++++++++++++++++++++++++++++++++ SUMMARY: ++++++++++++++++++++++++++++++++++++ Left - Cephalic vein [...] Leland Thompson MD VASCULAR LAB ORD ERABLES documented in this encounter Visit Diagnoses Diagnosis ESRD (end stage renal disease) (HCC) End stage renal disease documented in this encounter Care Teams Clinical Rehab Liaison Relationship Specialty Start Date End Date Diana Mao MD [address] [place] [address] PCP - General 08/05/17 06/14/23 documented as of this encounter
--- OUTSIDE RECORDS SUMMARY | 2024-10-15 16:32 | XMS_ITS | Encounter Summary ---
Author Organization [facility] Address [address] [place] [address] Care Team Providers Care Clinical Statistical Programmer Name Role Phone Diana Mao MD Primary Care Provider [phone] Reason for Visit * Auth/Cert (Routine) Specialty Diagnoses / Procedures Referred By Abena torrez Referred To Contact Procedures INSERTION GRAFT ARTERIO-VENOUS (AV) ARM Referral ID Status Reason Start Date Expiration Date Visits Re quested Visits Authorized [id number] 1 1 Encounter Details Date Type Department Care Team (Late st Contact Info) Description 04/11/2023 9:05 AM CDT - 04/11/2023 11:05 AM CDT Surgery [facility] - Perioperative Surgery [address] [place], [place] [id number] [place] [address] [facility] [address] [place] [address] Not Performed INSERTION GRAFT ARTERIO-VENOUS (AV) ARM Social History Tobacco Use Types Packs/Day Years [...] Sign Reading Time Taken Comments Blood Pressure 247/100 04/11/2023 8:00 AM CDT Pulse 70 04/11/2023 7:50 AM CDT Temperature 36.3 ??C (97.4 ??F) 04/11/2023 7:50 AM CD T Respiratory Rate 16 04/11/2023 7:50 AM CDT Oxygen Saturation - - Inhaled Oxygen Concentration - - Weight 58.5 kg (129 lb) 04/11/2023 7:37 AM CDT Height 172.7 cm (5' 8 ) 04/11/2023 7:37 AM CDT Body Mass Index 19.61 04/11/2023 7:37 AM CDT documented in this encounter Functional [...] 3 times daily as needed for Anxiety busPIRone (Buspar) 5 MG tablet Take 1 (one) tablet by mouth 3 times daily 02/23/2023 epoetin deyanira-EPBX (Retacrit) 4000 UNIT/ML injection 2 mL by Intravenous route Give in dialysis on Tuesday, & Tuesday09/11/2022 labetalol (Normodyne; Trandate) 300 MG tablet Take 1 (one) tablet by mouth 2 times daily 04/07/2023 lanthanum (Fosrenol) 1000 MG chew tablet Take 1 (one) tablet by mouth 3 times daily with meals 03/23/2023 Multiple Vitamins-Minerals (PRESERVISION AREDS 2 PO) Take 1 tablet by mouth once daily albuterol HFA (Proventil; Ventolin; Proair) 108 (90 Base) MCG/ACT inhaler Inhale 2 (two) puffs by mouth every 6 hours as needed for Shortness of Breath or Wheezing 09/09/2022 04/12/2023 hydroCHLOROthiazide (Microzide) 12.5 MG capsule Take 1 (one) capsule by mouth once daily 03/29/2023 10/05/2023 labetalol (Normodyne; Trandate) 200 MG tablet Take 1.5 (one and one-half) tablets by mouth 2 times daily 01/05/2023 04/12/2023 lisinopril (Prinivil; Zestril) 20 MG tablet Take 1 (one) tablet by mouth 2 times daily 12/24/2022 10/05/2023 memantine (Namenda) 5 MG tablet Take 1 (one) tablet by mouth 2 times daily 04/12/2023 documented as of this encounter Progress Notes * Leland Thompson MD - 04/11/2023 8:21 AM CDT Patient was mildly dyspneic and hypertensive. After discussion with Anesthesia we decided to delay her surgery. She will have outpatient hemodialysis tomorrow and her surgery will be rescheduled for Tuesday afternoon documented in this encounter H&P Notes * Leland Thompson MD - 04/08/2023 7:17 AM CDT Surgical H&P Chief Complaint End-stage renal disease with need for long-term dialysis access ?? History and Physical: Kirsty Rea is a 82 year old female. The patient is referred by her landscaper helper for a catheter that was not working well. She has never had evaluation for access in the past. PCP is Diana Mao MD. She is right handed. She has poor peripheral veins. ?? Past Medical & Surgical History Past Medical History: Diagnosis Date ??? CKD (chronic kidney disease) stage 3, GFR 30-59 ml/min ([facility]) ? proteinuria; Mailroom Associate = Dr. Reyes ??? HTN (hypertension), benign ? 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 s/p surgery ??? Morphea ? Osteopenia ? Past Surgical History: Procedure Laterality Date ??? Appendectomy ? Breast Reduction ? Cholecystectomy, Laparoscopic ? HX FRACTURE TX ? OOPHORECTOMY ?? 1972 ??? Parathyroidectomy ?? 1999 ? Allergies Allergen Reactions ??? Ramipril Other ? Other reaction(s): Other (See Comments) Kidney Damage Kidney Damage ? No current facility-administered medications on file prior to encounter. Current Outpatient Medications on File Prior to Encounter Medication Sig Dispense Refill ??? acetaminophen (Tylenol) 500 MG tablet Take 1 (one) tablet by mouth every 4 hours as needed for Fever, Pain or Headache Maximum allowable Acetaminophen amount = 4 Grams (4000 mg) / 24 hours. ??? albuterol HFA (Proventil; Ventolin; Proair) 108 (90 Base) MCG/ACT inhaler Inhale 2 (two) puffs by mouth every 6 hours as needed for Shortness of Breath or Wheezing (Patient not taking: Reported on 03/31/2023) ??? ALPRAZolam (Xanax) 0.25 MG tablet Take 1 (one) tablet by mouth 3 times daily as needed for Anxiety ??? busPIRone (Buspar) 5 MG tablet Take 1 (one) tablet by mouth 3 times daily ??? epoetin deyanira-EPBX (Retacrit) 4000 UNIT/ML injection 2 mL by Intravenous route Give in dialysis on Tuesday, & Tuesday ??? hydroCHLOROthiazide (Microzide) 12.5 MG capsule Take 1 (one) capsule by mouth once daily ??? labetalol (Normodyne; Trandate) 200 MG tablet Take 1 (one) tablet by mouth 2 times daily ??? lanthanum (Fosrenol) 1000 MG chew tablet Take 1 (one) tablet by mouth 3 times daily with meals ??? lisinopril (Prinivil; Zestril) 20 MG tablet Take 1 (one) tablet by mouth 2 times daily ??? memantine (Namenda) 5 MG tablet Take 1 (one) tablet by mouth 2 times daily ??? Multiple Vitamins-Minerals (PRESERVISION AREDS 2 PO) Take 1 tablet by mouth once daily ?? Social History ?? Tobacco Use ??? Smoking status: Former ? Packs/day: 1.00 ? Types: Cigarettes ? Start date: 10/31/1965 ? Quit date: 10/31/1983 ? Years since quittin.4 ??? Smokeless tobacco: Never Vaping Use ??? Vaping status: Never Used Substance Use Topics ??? Alcohol use: Yes ? Alcohol/week: 0.8 standard drinks of alcohol ??? Drug use: No ? Family History Problem Relation Name Age of Onset ??? Hypertension Father ? Hypertension Brother ? Physical Examination: Constitutional: Patient appears oriented and in no distress. Neck: Neck is supple without lymphadenopathy GI: Abdomen is soft and non tender. Musculoskeletal: All four extremities are warm and well perfused. Poor peripheral veins. Positive modified Raji's test ? Data Reviewed Today: Good caliber brachial artery No adequate cephalic or basilic vein. Axillary vein. 4-5 mm ?? Impression/Plan End-stage renal disease with need for long-term dialysis access. Will place left upper arm dialysisgraft brachial artery to axillary vein under regional block at the patient's convenience on a non dialysis day either Tuesday, Tuesday or Tuesday I have discussed the risks in detail (including bleeding, infection, and injury to surrounding structures) as well as the benefits and alternatives to surgery, with the patient who understands and wishes to proceed with surgery. In addition to the standard procedural informed consent, the specific risks related to COVID-19 were also discussed, including the possibility of an infection being present with a negative test, the risk of aileen COVID-19, and the known implications of this infection. See consent form. documented in this encounter Plan of Treatment Upcoming Encounters Date Type Department Care Team (Late st Contact Info) Description 12/11/2024 10:30 AM PERSONAL INJURY LEGAL ASSISTANT Appointment [facility] [address] [facility], [address] [place] [address] Jarett Reinoso MD [address] [place], [place] [phone] Christine Benitez MD [address] [place] [phone] Keyshawn Krueger MD [address] [place], [place] [phone] Armando Ferro, [address] [address] documented as of this encounter Procedures Procedure Name Priority Date/Time Associated Diagnosis Comments BASIC METABOLIC PANEL (CALCIUM TOTAL) STAT 04/11/2023 7:36 AM CDT Preop examination documented in this encounter Results * (ABNORMAL) BASIC METABOLIC PANEL (CALCIUM TOTAL) (04/11/2023 7:36 AM CDT) Glucose 99 70 - 105 mg/dL 04/11/2023 8:09 AM CDT [facility] Sodium 134(L) 136 - 145 mmol/L 04/11/2023 8:09 AM CDT [facility] Potassium 4.0 3.5 - 5.1 mmol/L 04/11/2023 8:09 AM CDT [facility] Chloride 98 98 - 107 mmol/L 04/11/2023 8:09 AM CDT [facility] CO2 27 23 - 31 mmol/L 04/11/2023 8:09 AM CDT [facility] Calcium 10.5(H) 8.4 - 10.4 mg/dL 04/11/2023 8:09 AM CDT [facility] Anion Gap 9 8 - 18 mmol/L 04/11/2023 8:09 AM CDT [facility] BUN 43(H) 9.8 - 20.1 mg/dL 04/11/2023 8:09 AM CDT [facility] Creatinine 4.77(H) 0.57 - 1.11 mg/dL 04/11/2023 8:09 AM CDT [facility] eGFR by CKD-EPI 9(L) >=90 mL/min/1.7 3 m2 04/11/2023 8:09 AM T [facility] Blood BLOOD SPECIMEN / Unknown Venipuncture / Unknown 04/11/2023 7:36 AM CDT 04/11/2023 7:51 AM CDT Zohra Peng DO LAB - CHEMISTRY PATRICIA CASIANO [facility] [address] [place] [address] documented in this encounter Visit Diagnoses Not on filedocumented in this encounter Administered Medications Inactive Administered Medications - up to 3 most recent administrations Medication Order MAR Action Action Date Dose Rate Site 0.9% NaCl infusion at 20 mL/hr, Intravenous, PRE-OP CONTINUOUS, Starting on Tue04/11/23 at 0730, Until Tue04/11/23 at 09, For Dialysis or Chronic Renal Failure patients. Use 500 ml bag and micro drip tubing, Pre-op $ New Bag/Syringe 04/11/2023 8:05 AM CDT 20 mL/hr 0.9% NaCl injection 1-10 mL 1-10 mL, Intracatheter, PRN, Other, peripheral line flush, Starting on Tue04/11/23 at 0721, Until Tue04/11/23 at 09, Flush peripheral IV catheter with 1-10 mL of normal saline before and after medications and prn to clear blood from the line or to verify patency., Pre-op 0.9% NaCl injection 3 mL 3 mL, Intracatheter, EVERY 8 HOURS, First dose on Tue04/11/23 at 0730, Until Discontinued, Flush peripheral IV catheter with 3 mL of normal saline every 8 hours., Pre-op ceFAZolin (Ancef) 2,000 mg in 50 ml IVPB 2,000 mg (2 g), at 100 mL/hr, Intravenous, PRE-OP MULTIPLE, Starting on Tue04/11/23 at 0721, Until Tue04/11/23 at 0958, Administer 30 minutes prior to surgical incision., Indication for anti-infective therapy: Surgical prophylaxis, Pre-op lidocaine PF (Xylocaine MPF) 1 % injection 0.5 mL 0.5 mL, Infiltration, PRE-OP ONCE, 1 dose, On Tue04/11/23 at 0730, May be used (0.5 ml locally to anesthetize prior to insertion). For patients not allergic to local anesthetics., Pre-op $ Given 04/11/2023 8:06 AM CDT 0.5 mL documented in this encounter Active and Recently Administered Medications Times are shown in CDT. Scheduled Medication Order 04/09/2023 04/10/2023 04/11/2023 0.9% NaCl injection 3 mL(Linked Group 1) 3 mL, Intracatheter, EVERY 8 HOURS, First dose on Tue04/11/23 at 0730, Until Discontinued, Flush peripheral IV catheter with 3 mL of normal saline every 8 hours., Pre-op 729 (Due) ceFAZolin (Ancef) 2,000 mg in 50 ml IVPB 2,000 mg (2 g), at 100 mL/hr, Intravenous, PRE-OP MULTIPLE, Starting on Tue04/11/23 at 0721, Until Tue04/11/23 at 0958, Administer 30 minutes prior to surgical incision., Indication for anti-infective therapy: Surgical prophylaxis, Pre-op lidocaine PF (Xylocaine MPF) 1 % injection 0.5 mL (COMPLETED) 0.5 mL, Infiltration, PRE-OP ONCE, 1 dose, On Tue04/11/23 at 0730, May be used (0.5 ml locally to anesthetize prior to insertion). For patients not allergic to local anesthetics., Pre-op 805 ($ Given - Prov ider: Carolyn Hanson RN) Continuous Medication Order 04/09/2023 04/10/202304/11/2023 0.9% NaCl infusion at 20 mL/hr, Intravenous, PRE-OP CONTINUOUS, Starting on Tue04/11/23 at 0730, Until Tue04/11/23 at 0958, For Dialysis or Chronic Renal Failure patients. Use 500 ml bag and micro drip tubing, Pre-op 0805 ($ New Bag/Syri nge - Provider: Carolyn Hanson RN) PRN Medication Order 04/09/2023 04/10/2023 04/11/2023 0.9% NaCl injection 1-10 mL(Linked Group 1) 1-10 mL, Intracatheter, PRN, Other, peripheral line flush, Starting on Tue04/11/23 at 0721, Until Tue04/11/23 at 0958, Flush peripheral IV catheter with 1-10 mL of normal saline before and after medications and prn to clear blood from the line or to verify patency., Pre-op Linked Groups Order Group 1: SALINE LOCK, INSERT AND MAINTAIN (CANCELED) Routine, CONTINUOUS, Starting on Tue04/11/23 at 0730, Until Specified, Pre-op, New collection And 0.9% NaCl injection 3 mLJump to med 3 mL, Intracatheter, EVERY 8 HOURS, First dose on Tue04/11/23 at 0730, Until Discontinued, Flush peripheral IV catheter with 3 mL of normal saline every 8 hours., Pre-op And 0.9% NaCl injection 1-10 mLJump to med 1-10 mL, Intracatheter, PRN, Other, peripheral line flush, Starting on Tue04/11/23 at 0721, Until Tue04/11/23 at 0958, Flush peripheral IV catheter with 1-10 mL of normal saline before and after medications and prn to clear blood from the line or to verify patency., Pre-op documented in this encounter Care Teams Clinical Statistical Programmer Relationship Specialty Start Date End Date Diana Mao MD [address] [place] [address] PCP - General 08/05/17 06/14/23 documented as of this encounter
--- OUTSIDE RECORDS SUMMARY | 2024-10-15 16:32 | XMS_ITS | Encounter Summary ---
Author Organization [facility] Address [address] [facility] [place] [address] Care Team Providers Care Risk Consulting Treasury Director Name Role Phone ErikmicheleYanira INTERNAL MEDICINE DOCTOR-CHAIN TESTING MACHINE OPERATOR Primary Care Provid er Reason for Referral * Radiology Services (Routine) - Closed Specialty Diagnoses / Procedures Referred By Contac t Referred To Contact Diagnoses ESRD (end stage renal disease) (HCC) Procedures IR CENTRAL LINE REMOVAL Christine Benitez MD [address] [place] [address] Referral ID Status Reason Start Date Expiration Date Visits Re quested Visits Authorized [id number] Closed 08/03/2023 08/02/2024 1 1 * Radiology Services (Routine) - Closed Specialty Diagnoses / Procedures Referred By Contac t Referred To Contact Diagnoses ESRD (end stage renal disease) (HCC) Procedures IR ANGIO AV SHUNT IMAGING Christine Benitez MD [address] [place] [address] Referral ID Status Reason Start Date Expiration Date Visits Re quested Visits Authorized [id number] Closed 08/03/2023 08/02/2024 1 1 * Radiology Services (Routine) - Closed Specialty Diagnoses / Procedures Referred By Contac t Referred To Contact Diagnoses ESRD (end stage renal disease) (HCC) Procedures IR CENTRAL LINE REMOVAL Christine Benitez MD [address] [place] [phone] Referral ID Status Reason Start Date Expiration Date Visits Re quested Visits Authorized [id number] Closed 08/03/2023 08/02/2024 1 1 * Radiology Services (Routine) - Closed Specialty Diagnoses / Procedures Referred By Abena torrez Referred To Contact Diagnoses ESRD (end stage renal disease) (HCC) Procedures IR ANGIO AV SHUNT IMAGING Christine Benitez MD [address] [place] [phone] Referral ID Status Reason Start Date Expiration Date Visits Re quested Visits Authorized [id number] Closed 08/03/2023 08/02/2024 1 1 Reason for Visit * Radiology Services (Routine) - Closed Specialty Diagnoses / Procedures Referred By Abena torrez Referred To Contact Diagnostic Ultrasound / Vascular Lab Diagnoses End stage renal disease (HCC) Procedures MN INTRO CATH DIALYSIS CIRC RAD S AND I MN REMV TUNNLD CVC W/O SUBQ PORT/PUMP Christine Benitez MD [address] [place] [phone] [facility] [address] [place] [address], [address] [address] Referral ID Status Reason Start Date Expiration Date Visits Re quested Visits Authorized [id number] Closed 08/03/2023 08/02/2024 5 5 Encounter Details Date Type Department Care Team (Latest Contact Info) Description 08/03/2023 9:54 AM CDT - 08/03/2023 11:59 PM CDT Hospital Encounter [facility] Vascular Services [address] [place] [address], [address] [place] [address] Christine Benitez MD [address] [place] [address] Discharge Disposition: Home or Self Care Social [...] Sign Reading Time Taken Comments Blood Pressure 180/66 08/03/2023 11:00 AM CDT Pulse 62 08/03/2023 11:00 AM CDT Temperature 36.4 ??C (97.5 ??F) 08/03/2023 10:12 AM C DT Respiratory Rate 24 08/03/2023 11:00 AM CDT Oxygen Saturation 92% 08/03/2023 11:00 AM CDT Inhaled Oxygen Concentration - - Weight 59 kg (130 lb) 08/03/2023 10:12 AM CDT Height 172.7 cm (5' 8 ) 08/03/2023 10:12 AM CDT Body Mass Index 19.77 08/03/2023 10:12 AM CDT documented in this encounter Functional [...] mouth 3 times daily with meals 03/23/2023 memantine (Namenda) 5 MG tablet Take 1 (one) tablet by mouth 2 times daily Multiple Vitamins-Minerals (PRESERVISION AREDS 2 PO) Take 1 tablet by mouth once daily hydroCHLOROthiazide (Microzide) 12.5 MG capsule Take 1 (one) capsule by mouth once daily 03/29/2023 10/05/2023 lisinopril (Prinivil; Zestril) 20 MG tablet Take 1 (one) tablet by mouth 2 times daily 12/24/2022 10/05/2023 documented as of this encounter Progress Notes * Kaylyn Gtz RN - 08/03/2023 10:14 AM CDT ALLY access that is pulsatile and here for fistulogram and CVC removal. documented in this encounter H&P Notes * Christine Benitez MD - 08/03/2023 10:19 AM CDT Chief Complaint ESRD History and Physical Kirstyterri Rea is a 82 year old female. ESRD Past Medical History: Diagnosis Date ??? Anxiety ??? CKD (chronic kidney disease) stage 3, GFR 30-59 ml/min ([facility]) proteinuria; Cow Buyer = Dr. Reyes ??? CVA (cerebral vascular accident) ([facility]) 08/14/2022 ??? Dementia without behavioral disturbance ([facility]) mild ??? ESRD on dialysis ([facility]) [facility], 07/06/23 ??? Gout ??? HTN (hypertension), benign ??? Hyperparathyroid bone disease ([facility]) s/p surgery ??? Morphea ??? Osteopenia Past [...] tablet Take by mouth once daily ??? hydroCHLOROthiazide (Microzide) 12.5 MG capsule Take [...] Take 1 tablet by mouth once daily No current facility-administered medications on file prior to encounter. Social History Tobacco Use ??? Smoking status: Former Packs/day: 1.00 Types: Cigarettes Start date: 10/31/1965 Quit date: 10/31/1983 Years since quittin.7 ??? Smokeless tobacco: Never Vaping Use ??? [...] Procedure Notes * Christine Benitez MD - 08/03/2023 11:00 AM CDTAssociated Order(s): IR ANGIO AV SHUNT IMAGING; IR CENTRAL LINE REMOVAL Surgeon: Christine Benitez MD Pre-Procedure diagnosis: ESRD Time out and final pre-procedure assessment completed immediately prior to start of procedure. Medications reviewed. Post-Procedure diagnosis: Same Anesthesia: Local Technical Procedure Performed: Left upper extremity AV graft injection with angioplasty; tunneled right IJ hemodialysis catheter removal Findings: After informed consent was obtained the patient was placed supine on the angiogram table and the left upper extremity was prepped and draped in the usual sterile fashion. Anesthesia was obtained with lidocaine and the graft was punctured with a micropuncture set in antegrade manner. Contrast injection demonstrates patency of the graft however a high-grade stenosis at the venous anastomosis was noted. Otherwise the visualized outflow and central venous structures demonstrated no significant abnormality. A 7 Azeri sheath was introduced over a [employer] wire and angioplasty was performed with a 7 mm x 4 cm and subsequently an 8 mm x 4 cm Conquest balloon. Reflux injection during balloon inflation demonstrated widely patent arterial anastomosis. Contrast injection after angioplasty demonstrated significant improvement at the stenosis site with no significant residual. The sheath was removed and hemostasis was obtained using a pursestring suture. Attention was then made to the right IJ tunneled hemodialysis catheter. The skin site was prepped and draped in the usual sterile fashion and anesthesia was obtained with lidocaine. The Catheter was freed of scar tissue and the catheter was removed. Hemostasis was obtained with manual compression. Patient tolerated the procedures well. 35 cc of Isovue contrast was used. Radiation exposure 3.0 mGy Disposition: Home Status: Stable Drain or Pack: None Additional information/Complications: None Estimated blood loss: negligible Specimen(s) removed: No Specimen During the post-procedure debrief all intra-procedure verbal order medications ordered by the proceduralist were reviewed and authenticated. documented in this encounter Plan of Treatment Upcoming Encounters Date Type Department Care Team (Late st Contact Info) Description 12/11/2024 10:30 AM CREATIVE WRITING TEACHER Appointment [facility] [address] [facility] [facility] [address] [place] [address] Jarett Reinoso MD [address] [place], [place] [phone] Christine Benitez MD [address] [place] [phone] Keyshawn Krueger MD [address] [place], [place] [phone] [place] [address] [phone] documented as of this encounter Procedures Procedure Name Priority Date/Time Associated Diagnosis Comments CARDIAC RHYTHM STRIP ORDER 08/05/2023 1:57 AM CDT IR ANGIO AV SHUNT IMAGING Routine 08/03/2023 10:54 AM CDT ESRD (end stage renal disease) (HCC) IR CENTRAL LINE REMOVAL Routine 08/03/2023 10:54 AM CDT ESRD (end stage renal disease) (HCC) documented in this encounter Results * CARDIAC RHYTHM STRIP ORDER (08/05/2023 1:57 AM CDT) Narrative 08/05/2023 1:57 AM CDT Ordered by an unspecified provider. Scanned Document CARDIAC SERVICES ORD ERABLES * IR CENTRAL LINE REMOVAL (08/03/2023 10:54 [...] demonstrated no significant abnormality. ?? A 7 Azeri sheath was introduced over a [employer] wire and angioplasty was performed with a 7 mm x 4 cm and subsequently an 8 mm x 4 cm Tagwhatquest balloon. ??Reflux injection during balloon inflation demonstrated [...] authenticated. Christine Benitez MD IR ORDERABLES * IR ANGIO AV SHUNT IMAGING (08/03/2023 10:54 AM CDT) Anatomical Region Laterality Modality Lower Extremity, Upper Extremity, Chest X-Ray Angiography Narrative 08/03/2023 11:00 AM CDT Christine Benitez [...] demonstrated no significant abnormality. ?? A 7 Azeri sheath was introduced over a [employer] wire and angioplasty was performed with a [...] 50 mL/hr, Intravenous, INTRA-PROCEDURE MULTIPLE, Starting on Tue08/03/23 at 1008, Until Rebekah 08/04/23 at 0137, Intra-procedure (IR) $ New Bag/Syringe 08/03/2023 10:51 AM CDT 100 mL 50 mL/hr iopamidol (Isovue 300) 61 % contrast Intravenous, INTRA-PROCEDURE MULTIPLE, Starting on Tue08/03/23 at 1008, Until Rebekah 08/04/23 at 0137, Intra/Post-procedure $ Given - Contrast 08/03/2023 10:51 AM CDT 30 mL $ Given - Contrast 08/03/2023 10:50 AM CDT 5 mL lidocaine PF (Xylocaine MPF) 1 % injection Infiltration, INTRA-PROCEDURE MULTIPLE, Starting on Tue08/03/23 at 1008, Until Rebekah 08/04/23 at 0137, Intra-procedure (IR) $ Given 08/03/2023 10:52 AM CDT 10 mL documented in this encounter Care Teams Risk Consulting Treasury Director Relationship Specialty Start Date End Date Yanira Meyers, INTERNAL MEDICINE DOCTOR-CHAIN TESTING MACHINE OPERATOR [address] [place] [address] PCP - General Nurse Practitioner Family 06/15/23 documented as of this encounter
--- OUTSIDE RECORDS SUMMARY | 2024-10-15 16:32 | XMS_ITS | Encounter Summary ---
Author Organization [facility] Address [address] [place] [address] Care Team Providers Care Program Development Manager Name Role Phone Yanira Meyers PROMOTION SPECIALIST-LABORATORY SAMPLE CARRIER Primary Care Provid er Reason for Referral * Evaluate & Treat (Routine) - Closed Specialty Diagnoses / Procedures Referred By Contmontserrat t Referred To Contact Cardiology Diagnoses Hypertensive emergency Heraclio Cabrera MD [address] [facility] [address] OF [facility] [place] [address] abe Car [facility] [address] [facility] [address] [place] [address] Referral ID Status Reason Start Date Expiration Date V isits Requested Visits Authorized [id number] Closed Continuity of Care 10/05/2023 10/04/2024 1 1 OSOFT BI CONSULTANT * Consultation (Routine) - Closed Specialty Diagnoses / Procedures Referred By Contac t Referred To Contact Neurological Surgery Diagnoses Subdural hematoma (HCC) Heraclio Cabrrea MD [address] [employer] [facility] [address] [place] [address] Gill Thomas [address] [facility] [address] [place] [address] Referral ID Status Reason Start Date Expiration Date V isits Requested Visits Authorized [id number] Closed Specialty Services Required 10/04/2023 10/03/2024 1 1 OSOFT BI CONSULTANT * Consultation (Routine) - Closed Specialty Diagnoses / Procedures Referred By Contac t Referred To Contact Neurological Surgery Diagnoses Subdural hematoma (HCC) Heraclio Cabrera MD [address] [facility] [address] OF [facility] [place] [address] [facility] [address] [facility], [place] [address] Referral ID Status Reason Start Date Expiration Date V isits Requested Visits Authorized [id number] Closed Specialty Services Required 10/04/2023 10/03/2024 1 1 OSOFT BI CONSULTANT * Radiology Services (Routine) - Closed Specialty Diagnoses / Procedures Referred By Contac t Referred To Contact CT Scan Diagnoses Neuroma of foot Procedures CT HEAD WO CONTRAST Axel Roman MD [address] [facility] [address] [place] [address] [facility] [address] [place] [address] Referral ID Status Reason Start Date Expiration Date Visits Re quested Visits Authorized [id number] Closed 10/17/2023 04/15/2024 1 1 OSOFT BI CONSULTANT Reason for Visit * Reason Comments LOSS OF CONSCIOUSNESS PT BIBEMS for sync opal episode at Dialysis today. EMS reports epidural hematoma on CT from OSH. Pt lives at [facility] in [place] [address] at baseline. * Auth/Cert (Routine) Specialty Diagnoses / Procedures Referred By Abena t Referred To Contact Diagnoses trauma R frontal hematoma Referral ID Status Reason Start Date Expiration Date Visits Re quested Visits Authorized [id number] 1 1 Encounter Details Date Type Department Care Team (Late st Contact Info) Description 09/29/2023 3:23 PM [employer]OS[employer]FT BI CONSULTANT - 10/05/2023 2:21 PM MICROSOFT BI CONSULTANT Hospital Encounter [facility] ACUTE [address] [place] [id number] Alexis Atkins MD [address] [facility] DIV [place] [address] Jenaro Marshall MD [address] [facility] [place] Axel Roman MD [address] [facility] [address] DIV OF [facility] [place] [address] Rogelio Benitez MD [address] [place], [place] [id number] Heraclio Cabrera MD [address] [facility] [address] OF [facility] [place] [address] Acute Care Unit Discharge Disposition: [facility] Facility Social History Tobacco Use Types Packs/Day Years [...] Sign Reading Time Taken Comments Blood Pressure 111/49 10/05/2023 11:04 AM MI[employer]OSOFT BI CONSULTANT Pulse 60 10/05/2023 11:04 AM MICROSOFT BI CONSULTANT Temperature 36.9 ??C (98.4 ??F) 10/05/2023 11:[address] Respiratory Rate 22 10/05/2023 11:04 AM MICROSOFT BI CONSULTANT Oxygen Saturation 97% 10/05/2023 11:04 AM MICROSOFT BI CONSULTANT Inhaled Oxygen Concentration - - Weight 54.4 kg (120 lb) 10/05/2023 7:52 AM MICROSOFT BI CONSULTANT Height 175.3 cm (5' 9 ) 10/05/2023 7:52 AM MICROSOFT BI CONSULTANT Body Mass Index 17.72 10/05/2023 7:52 AM MI[employer]OSOFT BI CONSULTANT documented in this encounter Functional Status Functional [...] Yes 08/15/2022 documented as of this encounter Discharge Summaries * Billy Bowling, DO - 10/05/2023 1:21 PM CST [facility] MEDIC[facility] DISCHARGE SUMMARY PATIENT: Kirsty Rea 82 year old female : 1940 ADMISSION INFORMATION ADMISSION DISCHARGE Date: 09/29/2023 Date: 10/05/2023 Admitting Physician Axel Roman MD Discharge Physician: Heraclio Cabrera MD Present on Admission: None Discharge Diagnoses: Ground Level Fall Admission Condition: poor Discharged Condition: fair Consults: Nephrology, Neurosurgery HOSPITAL COURSE Hospital Course: Ms. Kirsty Rea is a 82 year old??female??with PMHx Gout, HTN, ESRD on HD, HTN nephropathy, dementia, and hx of CVA off antiplatelet/anticoag admitted from OSH for altered mental status after a ground level fall during her HD session. Per pt's daughter, pt was at dialysis when treatment team noticed she was altered and sent her to OSH where CT head revealed right frontal convexity SDH. Decision was made to transfer pt to [facility] for further workup and neurosurgical evaluation. The patient was evaluated by trauma and NSGY for SDH and there were no indicaiton of any surgical intervention. The patient's labs are consistent with ESRD patient. CT head with small SDH, CT chest showed age indeterminate ribs 2-4 fractures. Patient BP was elevated on admission most likely 2/2 to volume overload +/- uncontrolled HTN. On labetalol 300mg bid losartan 50mg qd and amlodipine 5mg added today. Nephrologywas consulted for dialysis. Syncope workup done, orthostatics positive,TTE revealed LV concentric hypertrophy with EF 72%, Cardiology referral placed. Symptoms and radiographic imaging were concerning for possible NPH, will follow up with Neurosurgery. Rapid response called overnight into 10/03 due to patient's hypertension SBP 216, with associated anxiety and tachypnea. Amlodipine increased to 10mg, switched to QHS, Losartan increased to 100mg. Patient without events or complaints since, BP markedly improved after dialysis, Losartan reduced back to home dose 50mg. Note to PCP (e.g. vitals, labs, imaging, medication start/stop, etc. to follow): The following changes were made to the patient's blood pressure medications: - Started Amlodipine 10mg QHS - Held HCTZ and Lisinopril Patient was otherwise continued on Labetalol 300mg BID and Losartan 50mg QD Patient will also be scheduled for follow up with Neurosurgery Significant Diagnostic Studies: Labs this admission: CBC: Recent Labs Lab 10/05/2360610/04/2345610/03/23 0516 WBC 6.2 4.7 11.4* HGB 8.4* 8.3* 8.6* HCT 26.8* 26.4* 27.9* MCV 93.1 93.3 93.9 PLTCOUNT 225 239 275 BMP: Recent Labs Lab 10/05/23 0610/04/2345610/03/23 0516 NA 139 141 141 POTASSIUM 3.6 4.7* 3.8 CL 98 103 104 BUN 20 34* 25 CREATININE 2.99* 5.30* 4.24* CALCIUM 9.4 10.0 10.1 CMP: Recent Labs Lab 10/05/23 0610/04/2345610/03/23 0516 AST 16 16 17 ALT 14 14 15 TBILI 0.5 0.6 0.5 ALKPHOS 127 130 136 ALB 2.6* 2.5* 2.7* PROT 5.4* 5.5* 5.8* Coagulation: Recent Labs Lab Units 09/29/23 1719 PT Seconds 12.2 INR 0.9 Pertinent Microbiology: N/A Pending labs: N/A Imaging: (only include the pertinent ones) XR CHEST 1VW PORTABLE Result Date: 10/03/2023 IMPRESSION: Mild left base atelectasis. Report dictated by Ranjith Valdez MD, MD (cmo & president). Debby Hester MD have personally reviewed and interpreted this examination/study. > Interpreting Provider: Debby James MD on 10/03/2023 11:[address] CHEST ABDOMEN PELVIS W CONT Result Date: 09/29/2023 Impression: 1.New age-indeterminate fractures of the right second, third, fourth anterior ribs, favored to be acute/subacute. Correlation with point tenderness. 2.Otherwise no evidence of osseous or visceral injury in the chest, abdomen or pelvis. > Dictated by Heath Wu MD, (radiologyresident). Juwan Hester have personally reviewed and interpreted this examination/study. > Interpreting Provider: Juwan Aceves on 09/29/2023 7:[address] HEAD WO CONTRAST Result Date: 09/29/2023 IMPRESSION: 1. Small acute extra-axial hematoma along the right frontal convexity measuring up to 8to 9 mm in thickness with minimal mass effect on the adjacent sulci. No midline shift. No new foci of hemorrhage. 2. No evidence of acute fracture in the cervical, thoracic, or lumbar spine. Multilevel degenerative changes as described above. > Interpreting Provider: Rosa Davis MD on 09/29/2023 6:[address] CERVICAL SPINE WO CONTRAST Result Date: 09/29/2023 IMPRESSION: 1. Small acute extra-axial hematoma along the right frontal convexity measuring up to 8to 9 mm in thickness with minimal mass effect on the adjacent sulci. No midline shift. No new foci of hemorrhage. 2. No evidence of acute fracture in the cervical, thoracic, or lumbar spine. Multilevel degenerative changes as described above. > Interpreting Provider: Rosa Davis MD on 09/29/2023 6:[address] THORACIC SPINE WO CONTRAST Result Date: 09/29/2023 IMPRESSION: 1. Small acute extra-axial hematoma along the right frontal convexity measuring up to 8to 9 mm in thickness with minimal mass effect on the adjacent sulci. No midline shift. No new foci of hemorrhage. 2. No evidence of acute fracture in the cervical, thoracic, or lumbar spine. Multilevel degenerative changes as described above. > Interpreting Provider: Rosa Davis MD on 09/29/2023 6:[address] LUMBAR SPINE WO CONTRAST Result Date: 09/29/2023 IMPRESSION: 1. Small acute extra-axial hematoma along the right frontal convexity measuring up to 8to 9 mm in thickness with minimal mass effect on the adjacent sulci. No midline shift. No new foci of hemorrhage. 2. No evidence of acute fracture in the cervical, thoracic, or lumbar spine. Multilevel degenerative changes as described above. > Interpreting Provider: Rosa Davis MD on 09/29/2023 6:11 PM Discharge Exam: Vitals: BP 111/49 (BP Cuff Size: A) Pulse 60 Temp 98.4 ??F (36.9 ??C) (Oral) Resp 22 Ht 1.753 m (5'9 ) Wt 54.4 kg (120 lb) SpO2 97% Gen: Alert, cooperative, no distress Head: Normocephalic, without obvious abnormality, atraumatic Eyes: Conjunctivae/corneas clear, EOMI Nose: Mucosa normal. No drainage. Throat: Moist mucous membranes Neck: No JVD, no carotid bruit, trachea midline Back: Symmetric, no curvature Resp: CTAB, no wheezes/crackles CV: RRR, S1S2, No M/R/G Abd: S/NT/ND, BS+, no bruits Ext: No clubbing, cyanosis, edema; no skin changes consistent with venous stasis or arterial disease Pulses: 2+ DP B Skin: Single erythematous lesion/bruise on R cheek, no other No rashes or lesions Neuro: A&Ox3, No focal deficits DISCHARGE PLANNING Disposition: longterm and Rehab Patient Instructions: Medication List START taking these medications amLODIPine 10 MG tablet Commonly known as: Norvasc Take 1 (one) tablet by mouth at bedtime losartan 50 MG tablet Commonly known as: Cozaar Take 1 (one) tablet by mouth once daily Start taking on: October 06, 2023 CONTINUE taking these medications acetaminophen 500 MG tablet Commonly known as: Tylenol Take 1 (one) tablet by mouth every 4 hours as needed for Fever, Pain or Headache Maximum allowable Acetaminophen amount = 4 Grams (4000 mg) / 24 hours. busPIRone 5 MG tablet Commonly known as: Buspar epoetin deyanira-EPBX 4000 UNIT/ML injection Commonly known as: Retacrit 2 mL by Intravenous route Give in dialysis on Tuesday, & Tuesday escitalopram 5 MG half tablet Commonly known as: Lexapro labetalol 300 MG tablet Commonly known as: Normodyne; Trandate lanthanum 1000 MG chew tablet Commonly known as: Fosrenol memantine 5 MG tablet Commonly known as: Namenda PRESERVISION AREDS 2 PO Xanax 0.25 MG tablet Generic drug: ALPRAZolam STOP taking these medications hydroCHLOROthiazide 12.5 MG capsule Commonly known as: Microzide lisinopril 20 MG tablet Commonly known as: Prinivil; Zestril Where to Get Your Medications Information about where to get these medications is not yet available Ask your nurse or doctor about these medications ?? amLODIPine 10 MG tablet ?? losartan 50 MG tablet Discharge Instructions DISCHARGE INSTRUCTIONS? A MESSAGE FROM YOUR DOCTORS:?? Dear Kirsty Rea,? You were admitted after a ground level fall. Imaging revealed a small internal brain bleed (subdural hematoma) that was evaluated by Neurosurgery and did not require any surgical intervention. You will be called by Neurosurgery to schedule a follow up appointment. You completed dialysis for treatment of your End State Renal Disease. Your blood pressure medications were modified to better control your blood pressure. You have been placed with a referral to Cardiology to follow up on your Blood Pressure and your completed Echocardiogram report. 1. DISCHARGE MEDICATIONS:? Below were changes made to your home medications:? START TAKING (and why)? -? Amlodipine 10 mg at Bedtime STOP TAKING (and why)? -?Hydrochlorothiazide - Lisinopril CONTINUE TAKING -?Losartan 50mg Daily - Labetalol 300mg Twice a Day ? Other than the changes stated above, continue all other home medications as prescribed.? Please discuss these changes with your Primary Care Physician (or your specialist doctor).?? If you have any questions about your medications, please ask the pharmacy when you feed house supervisor your prescription. You may also call your primary provider if you still have questions.? ? 2. FOLLOW-UP:? A) Below are your scheduled appointments? Future Appointments Thursday November 09, 2023 10:30 AM (Arrive by 9:30 AM) Appointment with [facility] at [facility] ([phone]) [address] [facility], [address] [place] [address] As directed Imaging: CT HEAD WO CONTRAST ? -If you are not going home but to Rehab or Snf, ask the providers there about going to future appointments.?? ? B) It is essential that you keep all your follow-up appointments and go to your doctors??? appointments as scheduled. If a follow-up with your primary care provider has not been scheduled, you need to schedule an appointment to follow- up on your hospitalization within 1-2 weeks. If there is a conflict, please call the clinic ahead of time and reschedule the appointment.? ? 3. ?Lifestyle Modifications? -It is very important for your health to AVOID/STOP smoking cigarettes. Please talk to your primarycare physician if you need help quitting smoking.? -Please include plenty of fruits and vegetables in your diet and maintain a healthy diet.? -Discuss an exercise program with your primary care physician. It is recommended that most individuals should exercise for 20 minutes at least 5 times per week.? Please call your Primary Care Provider, report to the nearest emergency room or call 911 if you develop new or concerning symptoms, including, but not limited to, fever, chest pain, palpitations, numbness, worsening confusion, weakness in arms/legs, dizziness, or worsening shortness of breath.? Thank you for allowing us to participate in your care!? ? Internal Medicine Team? [facility] [address]? [place] [address]? Signed: Billy Bowling DO Internal Medicine Resident [facility] 10/05/2023 1:21 PM ' OSOFT BI CONSULTANT Associated attestation - Heraclio Cabrera MD - 10/05/2023 9:34 PM [employer]OSOFT BI CONSULTANT I have verified the documentation of the resident including all history, exam, and medical decision-making details. I have personally performed a physical exam and have personally reviewed the data to support my medical decision-making as outlined in their note. I agree with their assessment and plan other than any corrections/additions as documented below. Corrections/Additions: - I personally participated in approximately 35 minutes of discharge planning activities for this patient. Date of Service: 10/05/2023 Heraclio Cabrera MD documented in this encounter Discharge Instructions * Discharge Instructions* Billy Bowling, DO - 10/05/2023 9:21 AM MICROSOFT BI CONSULTANT DISCHARGE INSTRUCTIONS? A MESSAGE FROM YOUR DOCTORS:?? Dear Kirsty Rea,? You were admitted after a ground level fall. Imaging revealed a small internal brain bleed (subdural hematoma) that was evaluated by Neurosurgery and did not require any surgical intervention. You will be called by Neurosurgery to schedule a follow up appointment. You completed dialysis for treatment of your End State Renal Disease. Your blood pressure medications were modified to better control your blood pressure. You have been placed with a referral to Cardiology to follow up on your Blood Pressure and your completed Echocardiogram report. DISCHARGE MEDICATIONS:? Below were changes made to your home medications:? START TAKING (and why)? -? Amlodipine 10 mg at Bedtime STOP TAKING (and why)? -?Hydrochlorothiazide - Lisinopril CONTINUE TAKING -?Losartan 50mg Daily - Labetalol 300mg Twice a Day ? Other than the changes stated above, continue all other home medications as prescribed.? Please discuss these changes with your Primary Care Physician (or your specialist doctor).?? If you have any questions about your medications, please ask the pharmacy when you feed house supervisor your prescription. You may also call your primary provider if you still have questions.? ? 2. FOLLOW-UP:? A) Below are your scheduled appointments? Future Appointments Thursday November 09, 2023 10:30 AM (Arrive by 9:30 AM) Appointment with [facility] at [facility] ([phone]) [address] [facility], [address] [place] [address] As directed Imaging: CT HEAD WO CONTRAST ? -If you are not going home but to Rehab or Snf, ask the providers there about going to future appointments.?? ? B) It is essential that you keep all your follow-up appointments and go to your doctors??? appointments as scheduled. If a follow-up with your primary care provider has not been scheduled, you need to schedule an appointment to follow- up on your hospitalization within 1-2 weeks. If there is a conflict, please call the clinic ahead of time and reschedule the appointment.? ? 3. ?Lifestyle Modifications? -It is very important for your health to AVOID/STOP smoking cigarettes. Please talk to your primarycare physician if you need help quitting smoking.? -Please include plenty of fruits and vegetables in your diet and maintain a healthy diet.? -Discuss an exercise program with your primary care physician. It is recommended that most individuals should exercise for 20 minutes at least 5 times per week.? Please call your Primary Care Provider, report to the nearest emergency room or call 911 if you develop new or concerning symptoms, including, but not limited to, fever, chest pain, palpitations, numbness, worsening confusion, weakness in arms/legs, dizziness, or worsening shortness of breath.? Thank you for allowing us to participate in your care!? ? Internal Medicine Team? [place] [address] [facility]? [place] [address]? OSOFT BI CONSULTANT documented in this encounter Medications at Time of Discharge [...] as of this encounter Progress Notes * Fran Torres MSW - 10/05/2023 12:27 PM CST Facility Transfer Note Level of Care: SNF Facility Name: (include name of person confirming admission): Actual discharge provider: [facility] Made Aware of Special Needs (if applicable): Yes RN Call Report to:[phone] Fax D/C Orders to:[phone] Transportation (company and number): [employer] [facility] [phone] Certificate of Medical Necessity rationale: yes Date/time of transfer: 10/05 @ 3:00PM Accepting MD and contact #: Dr. Asif Completed and Signed [id number] (if applicable): Family/Other Notified of Transfer (name/phone): Authorization Skilled Care: Authorization for Transportation: Verified Qualifying Stay(Skilled Only): YES Comments: Name/Phone number: NIMO Tang OSOFT BI CONSULTANT * Tish Freeman - 10/05/2023 11:58 AM CST Discharge bridge operator slip received a request from to schedule a follow up appointment with Neurology and CTH . Upon reviewing the chart, it should be noted that the patient has an appointment already scheduled with Dr. Anne on 11/01/2023 at 4:00 pm. Patient also scheduled for CTH on 11/01/2023 at 3:00 pm No further discharge planning needs at this time. Tish Freeman 10/13/2023 OSOFT BI CONSULTANT * Earnestine Brand MD - 10/05/2023 11:39 AM CST [facility] Department of Nephrology History & Physical Date of Admission: 09/29/2023 Length of Stay: 4 Date of Service: 09/30/2023 Consulting Service: Internal Medicine Reason for Consult: ESRD w/ HD HISTORY: Kirsty Rea is a 82 year old female w/ PMH significant for ESRD w/ HD TTS via LUE AVG, since 07/2022 after progression of her 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 The patient was evaluated by trauma and NSGY for SDH and there were no indicaitonof any surgical intervention. To note patient BP was elevated on admission most likely 2.2 to volume overload +/- uncontrolled HTN. The patient labs are consistent with ESRD patient. CT head with small SDH. We will continue to follow for HD. Interval history: No acute events Cause of ESRD: Hypertension nephropathy- First HD 07/2022. Urine: No Access: RUE AVF Dialysis Center: [facility] Dialysis Days: TTS Dialysis Duration: 3 Hours 30 Minutes Dry Weight: NR Last Dialysis: 09/27/2023 Director Case: Dariel LARRY/BFR: Attempted to call Patient's dialysis center but no one picked up. We will try later. Review of Systems: Review of Systems Constitutional: Positive for malaise/fatigue. HENT: Negative. Eyes: Negative. Respiratory: Negative. Cardiovascular: Negative. Gastrointestinal: Negative. Genitourinary: Negative. Musculoskeletal: Negative. Skin: Negative. Neurological: Positive for dizziness, weakness and headaches. Endo/Heme/Allergies: Negative. Psychiatric/Behavioral: Negative. Past Medical History: Diagnosis Date ??? Anxiety ??? CKD (chronic kidney disease) stage 3, GFR 30-59 ml/min ([facility]) proteinuria; Director Case = Dr. Reyes ??? CVA (cerebral vascular accident) ([facility]/HCC) 08/14/2022 ??? Dementia without behavioral disturbance (CMS/HCC) mild ??? ESRD on dialysis ([facility]) [facility] , Th 07/06/23 ??? Gout ??? HTN (hypertension), benign ??? Hyperparathyroid bone disease (CMS/HCC) s/p surgery ??? Morphea ??? Osteopenia Past Surgical History: Procedure Laterality Date ??? Appendectomy ??? Breast Reduction ??? Cholecystectomy, Laparoscopic ??? HX FRACTURE TX ??? INSERTION GRAFT ARTERIO-VENOUS (AV) Left 06/15/2023 Left; LEFT UPPER ARM ARTERIOVENOUS GRAFT ??? OOPHORECTOMY 1971 ??? Parathyroidectomy 1999 Family History Problem Relation Name Age of Onset ??? Hypertension Father ??? Hypertension Brother Social History: Social History Socioeconomic History ??? Marital status: Spouse name: Not on file ??? Number of children: Not on file ??? Years of education: Not on file ??? Highest education level: Not on file Occupational History ??? Not on file Tobacco Use ??? Smoking status: Former Packs/day: 1 Types: Cigarettes Start date: 10/31/1965 Quit date: 10/31/1983 Years since quittin.9 ??? Smokeless tobacco: Never Vaping Use ??? Vaping Use: Never used Substance and Sexual Activity ??? Alcohol use: Yes Alcohol/week: 0.8 standard drinks of alcohol Types: 1 Standard drinks or equivalent per week Comment: occasionally ??? Drug use: No ??? Sexual activity: Not Currently Partners: Male Other Topics Concern ??? Not on file Social History Narrative ??? Not on file Social Determinants of Health Financial Resource Strain: Not on file Food Insecurity: Not on file Transportation Needs: Not on file Stress: Not on file Housing Stability: Not on file Allergies: Allergies Allergen Reactions ??? Ramipril Other Other reaction(s): Other (See Comments) Kidney Damage Kidney Damage Home Medications: No current facility-administered medications on file prior [...] Take 1 tablet by mouth once daily Hospital Medications: ??? 0.9% NaCl 10 mL Intracatheter intra-Procedure multiple ??? 0.9% NaCl 3 mL Intracatheter q8h ??? amLODIPine 10 mg Oral AT BEDTIME ??? busPIRone 5 mg Oral TID ? ? epoetin (Epogen,Procrit) injection 4,000 Units Intravenous DIALYSIS TUE, TUE, & TUE ??? escitalopram 5 mg Oral QDAY ??? heparin 5,000 Units Subcutaneous q8h ??? labetalol 300 mg Oral BID ??? losartan 100 mg Oral QDAY ??? memantine 5 mg Oral BID ??? sulfur hexafluoride microsphere 2 mL Intravenous intra-Procedure multiple PRN Meds: ??? SALINE LOCK, INSERT AND MAINTAIN AND 0.9% NaCl AND 0.9% NaCl ??? acetaminophen ??? hydrALAZINE ??? hydrOXYzine HCl ??? polyethylene glycol 3350 ??? senna-docusate OBJECTIVE: Vitals: 10/04/23 2333 10/05/23 0329 10/05/23 0752 10/05/23 1104 BP: 131/91 117/68 155/54 111/49 Pulse: 70 71 73 60 Resp: 18 18 18 22 Temp: 98.6 ??F (37 ??C) 98.4 ??F (36.9 ??C) 98 ??F (36.7 ??C) 98.4 ??F (36.9 ??C) SpO2: 94% 93% 95% 97% Weight: 54.4 kg (120 lb) Height: 1.753 m (5' 9 ) Estimated body mass index is 17.72 kg/m?? as calculated from the following: Height as of this encounter: 1.753 m (5' 9 ). Weight as of this encounter: 54.4 kg (120 lb). Intake/Output Summary (Last 24 hours) at 10/05/2023 1139 Last data filed at 10/05/2023 1124 Gross per 24 hour Intake 270 ml Output 1004 ml Net -734 ml Physical Exam: General: Alert and oriented to person, place, time and situation, no acute distress Neck: No JVD or cartoid bruit. Trachea midline. Heart: RRR, Normal S1 and S2. No murmurs appreciated. Chest: Normal breath sounds, no wheezes or rhonchi Abdomen: Soft, non-tender, non-distended, bowel sounds present Extremities: No lower extremity edema, 2+ distal peripheral pulses Neuro: No focal deficits noted Intake/Output Summary (Last 24 hours) at 10/05/2023 1139 Last data filed at 10/05/2023 1124 Gross per 24 hour Intake 270 ml Output 1004 ml Net -734 ml LABS: CBC: Recent Labs Component Name 10/05/23 0610/04/2345610/03/2316 WBC 6.2 4.7 11.4* HGB 8.4* 8.3* 8.6* HCT 26.8* 26.4* 27.9* MCV 93.1 93.3 93.9 BMP: Recent Labs Component Name 10/05/23 0610/04/2345610/03/23 0516 NA 139 141 141 CL 98 103 104 CO2 32* 26 29 BUN 20 34* 25 CREATININE 2.99* 5.30* 4.24* Recent Labs Component Name 10/05/23 0610/04/2345610/03/23 0516 CALCIUM 9.4 10.0 10.1 PHOS 3.1 3.9 3.7 LFT: Recent Labs Component Name 10/05/23 0607 10/04/23 0457 10/03/23 0516 PROT 5.4* 5.5* 5.8* ALB 2.6* 2.5* 2.7* ALKPHOS 127 130 136 AST 16 16 17 ALT 14 14 15 TBILI 0.5 0.6 0.5 Recent Labs Component Name 03/09/22 1312 LIPASE 35 Recent Labs Component Name 08/20/22 0250 TSH 4.654 Coagulation: Recent Labs Component Name 09/29/23 1719 08/27/22 0439 08/26/22 0330 PT 12.2 11.8* 12.9 INR 0.9 0.9 1.0 Cardiac markers: Recent Labs Component Name 08/22/22 0747 08/21/22 2340 08/21/22 1655 TROPONINI 0.037* 0.058* 0.054* ABG: Recent Labs Component Name 08/22/22 1801 08/22/22 0816 08/21/22 1930 [id number] 16* 16* 17* IMAGING: CT CHEST ABDOMEN PELVIS W CONT Result Date: 09/29/2023 Impression: 1.New age-indeterminate fractures of the right second, third, fourth anterior ribs, favored to be acute/subacute. Correlation with point tenderness. 2.Otherwise no evidence of osseous or visceral injury in the chest, abdomen or pelvis. > Dictated by Heath Wu MD, (radiologyresident). I, Juwan Aceves have personally reviewed and interpreted this examination/study. > Interpreting Provider: Juwan Aceves on 09/29/2023 7:[address] HEAD WO CONTRAST Result Date: 09/29/2023 IMPRESSION: 1. Small acute extra-axial hematoma along the right frontal convexity measuring up to 8to 9 mm in thickness with minimal mass effect on the adjacent sulci. No midline shift. No new foci of hemorrhage. 2. No evidence of acute fracture in the cervical, thoracic, or lumbar spine. Multilevel degenerative changes as described above. > Interpreting Provider: Rosa Davis MD on 09/29/2023 6:[address] CERVICAL SPINE WO CONTRAST Result Date: 09/29/2023 IMPRESSION: 1. Small acute extra-axial hematoma along the right frontal convexity measuring up to 8to 9 mm in thickness with minimal mass effect on the adjacent sulci. No midline shift. No new foci of hemorrhage. 2. No evidence of acute fracture in the cervical, thoracic, or lumbar spine. Multilevel degenerative changes as described above. > Interpreting Provider: Rosa Davis MD on 09/29/2023 6:[address] THORACIC SPINE WO CONTRAST Result Date: 09/29/2023 IMPRESSION: 1. Small acute extra-axial hematoma along the right frontal convexity measuring up to 8to 9 mm in thickness with minimal mass effect on the adjacent sulci. No midline shift. No new foci of hemorrhage. 2. No evidence of acute fracture in the cervical, thoracic, or lumbar spine. Multilevel degenerative changes as described above. > Interpreting Provider: Rosa Davis MD on 09/29/2023 6:[address] LUMBAR SPINE WO CONTRAST Result Date: 09/29/2023 IMPRESSION: 1. Small acute extra-axial hematoma along the right frontal convexity measuring up to 8to 9 mm in thickness with minimal mass effect on the adjacent sulci. No midline shift. No new foci of hemorrhage. 2. No evidence of acute fracture in the cervical, thoracic, or lumbar spine. Multilevel degenerative changes as described above. > Interpreting Provider: Rosa Davis MD on 09/29/2023 6:11 PM ASSESSMENT: Kirsty Rea is a 82 year old female w/ PMH significant for ESRD who presents for maintenance hemodialysis. PLAN: # ESRD w/ HD TTS See top of the note for HD information. - Access: LUE AVF - Volume Status: [facility] - HD 10/01 (1L) - strict intake and output - renally dose medications - plan for hemodialysis TTS - Ok to switch outpatient schedule to F- # Hypertension - current regimen: Amlodipine 10 pm, labetalol 300 BID, losartan 100 QD. Please continue. - Continue to monitor post dialysis. # Anemia - Hgb - 7.7 - may be secondary to anemia of chronic disease secondary to ESRD - Iron panel 09/30/2023: normal. - transfuse pRBCs for Hgb<7 # Secondary Hyperparathyroidism - PTH 08/17/2022: 346.2 - Ca - 10 - Albumin - 2.4 - PO4 - 3.5 - Repeat iCal, vit D and PTH orered. Patient will be seen and discussed with attending physician. CHRIS Henderson MD 09/30/2023 11:39 AM OSOFT BI CONSULTANT Associated attestation - Chris Fernandez MD - 10/05/2023 6:43 PM [employer] BI CONSULTANT I have seen and examined the patient with house-staff on rounds at 12:20 PM. I agree with the findings and plan of care as documented in the resident note. * Lyssa Guerra - 10/05/2023 9:51 AM CST Images from the original note were not included. Updated progress notes sent to patient's normal [facility] center. 10/05/2023 1:56 PM Spoke with staff at [facility] to let them know patient would be discharging today. Lyssa Guerra Kidney Navigator Ascom: [phone] Office: [phone] [employer]FT BI CONSULTANT * Saji James RN - 10/04/2023 7:57 PM CST Problem: Pain/Discomfort Goal: Patient exhibits reduced pain/discomfort as evidenced by pain scores Outcome: Progressing Goal: Patient uses pharmacological and non-pharmacological pain management strategies. Outcome: Progressing Goal: Patient verbalizes acceptable level of pain relief and ability to engage in desired activity. Outcome: Progressing Problem: Fall Risk Goal: Fall risk and fall related injury risk are minimized (interventions related to the fall risk can be found in the flowsheet documentation) Outcome: Progressing [employer]SOFT BI CONSULTANT * Bety Vuong OT - 10/04/2023 3:41 PM CST [facility] Physical Medicine and Rehabilitation Occupational Therapy Progress Note Patient: Kirsty Rea [facility] Record Number: [id number] Date of : 1940 Age: [age] year old PPE worn by staff: gloves PPE worn by patient: gown - patient, clean;socks - clean Tech: No Recommendations: Discharge OT Discharge Recommendations: Patient would benefit from multidisciplinary therapy This recommendation is made due to ongoing OT functional needs: address care for self in the home Nurse contacted regarding patient status and/or discharge plan. Activity Level: up ad mushtaq PRECAUTIONS: Weight Bearing Status: Lower Extremity;Upper Extremity Weight Bearing: WBAT SUBJECTIVE: Subjective: Pt is agreeable to participate. Pt is [place]. Pain Assessment: Pain Location #1 Pain Scale/Observation: Numeric (0-10) Pain Rating Score #1: 0 OBJECTIVE: At start of therapy session, patient found in patient bedside chair and with chair alarm on General Appearance: resting in bed, NAD LDA: IV's: Peripheral line and Dialysis Site Vitals: (*Assess the 3 levels of oxygen saturations both for room air and 02 unless rest on room air is 88% or less). Rest BP: HR: Sp02 Sp02 Room Air L O2 Ex/Gait/Activity Without 02 BP: HR: Sp02 Room Air Ex/Gait/Activity With 02 BP: HR: Sp02 L O2 Post Activity BP: HR: Sp02 Sp02 L O2 Room Air Observations: No c/o dizziness or SOB throughout. Mental Status/Cognition: Level of Consciousness-Adult: Drowsy Orientation Level: Oriented to Person Cognition: Follows Commands-inconsistent Attention Span: Difficulty attending to directions Memory: Decreased recall of recent events Following Commands: (~75% command follow) Safety Judgement: Decreased awareness of need for safety Awareness of Errors: Decreased awareness of deficits Problem Solving: Assistance required to generate solutions Mobility: a gait belt and non-slip socks were used for all out of bed activity this date. Transfers: Sit to Stand: Moderate Assistance Stand to Sit: Moderate Assistance Functional Ambulation: Functional mobility of ambulation to sink/bathroom with mod assist using wheeled walker. Pt with R knee buckling, requiring max A at times. Balance: Balance Scales/Tests Used: Sitting: Static/Dynamic;Standing: Static/Dynamic Sitting - Static: Good - Sitting - Dynamic: Fair + Standing - Static: Fair - Standing - Dynamic: Poor + Activities of Daily Living: Oral Facial Hygiene: Minimal Assistance (to complete hand, oral, and facial hygiene while seated inchair) Toileting: Moderate Assistance (for toilet transfer. Unable to urinate or have BM at this time) Splint Issued/Checked: none ACTIVITY TOLERANCE: Patient's activity tolerance: fair minus. Modified Elizabeth: Current Modified Elizabeth Score: 4 AM-PAC 6 Clicks Daily Activity Raw Score:: 14 TREATMENT/INTERVENTIONS: ADL training Adaptive equipment training Cognitive retraining Functional transfer training Endurance training Energy conservation Safety awareness EDUCATION: While performing OT, Patient was instructed in:functional mobility training, self-care training, cognitive retraining, safety awareness/fall precautions , use of adaptive equipment, discharge planning, use of call light Presented to patient who demonstrates Fair understanding of instructions given. INFORMED CONSENT TO TREATMENT: Plan of care including recommended therapy, goals and frequency, discussed with patient who understands and agrees to proceed. ASSESSMENT: Functional performance limited due to: limited activities of daily living, pain, decreased functional mobility, decreased functional balance, decreased cognition , decreased safety awareness, upper extremity functional impairments, decreased endurance and activity tolerance and decreased coordination. Patient continues to benefit from skilled Occupational Therapy to achieve the following functional goals. Equipment Issued: none. ?? Short Term Goals: Goal Formation With patient Patient will perform grooming??standing at sink and independently Patient will perform lower extremity dressing??independently Patient will perform toileting??independently Patient will transfer to standard toilet??independently ?? Chcf Goal(s): Patient to discharge to appropriate next level of inpatient care ?? Plan: Patient continues to benefit from skilled therapy services., Continue with goals as established. ?? If patient is discharged from the facility, this note serves as a discharge summary if further occupational therapy visits did not occur. Refer to filed flowsheet for further details. If patient is discharged from the facility, this note serves as a discharge summary if further occupational therapy visits did not occur. Refer to filed flowsheet for further details. Following therapy session, patient left in patient bedside chair, with chair alarm on, with call light within reach, with RN in room, with therapy cues visible on white board. OSOFT BI CONSULTANT * Billy Bowling DO - 10/04/2023 3:09 PM CST [facility] INTERNAL MEDICINE PROGRESS NOTE Patient: Kirsty Rea Sex: female Age: [age] year old Date of : 1940 Date of Admission: 09/29/2023 Date: 10/04/2023 LOS: 3 SUBJECTIVE Interval History: No acute events overnight, BP elevated without hypertensive emergency. A&Ox3 this AM, without acute complaints. Completed dialysis today. 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 She has had increased frequency in falls and delusional thinking since her CVA in 07/2023. Per pt's daughter, pt was at dialysis when treatment team noticed she was altered and sent her to OSH where CT head revealed right frontal convexity SDH. Decision was made to transfer pt to [facility] for further workup and neurosurgical evaluation. The patient was evaluated by trauma and NSGY for SDH and there were no indicaiton of any surgical intervention. The patient's labs are consistent with ESRD patient. CT head with small SDH, CT chest showed age indeterminate r ibs 2-4 fractures. Patient BP was elevated on admission most likely 2/2 to volume overload +/- uncontrolled HTN. On labetalol 300mg bid losartan 50mg qd and amlodipine 5mg added today. Nephrology wasconsulted for dialysis. Syncope workup done, orthostatics positive,TTE pending. Symptoms and radiographic imaging were concerning for possible NPH. She will require follow up with neurology for NPH workup. On 10/03, WBC elevated to 11.4, follow up on 10/03 back down to 4.7. OBJECTIVE Vital Signs: Vitals: 10/04/23 1138 10/04/23 1153 10/04/23 1230 10/04/23 1245 BP: 139/58 153/64 135/54 146/60 Pulse: 72 70 71 71 Resp: 18 16 18 16 Temp: 98.1 ??F (36.7 ??C) SpO2: Weight: Height: Temp Min: 97.7 ??F (36.5 ??C) Max: 99.5 ??F (37.5 ??C), Pulse Min: 60 Max: 106, Resp Min: 9 Max: 24, BP Min: 119/47 Max: 216/70 Intake & Output: In: 740 [P.O.:740] Out: - Physical Exam: Physical Exam Constitutional: General: She is not in acute distress. Appearance: She is not ill-appearing. Cardiovascular: Rate and Rhythm: Normal rate and regular rhythm. Pulses: Normal pulses. Heart sounds: Normal heart sounds. Pulmonary: Effort: Pulmonary effort is normal. Breath sounds: Normal breath sounds. No wheezing or rhonchi. Abdominal: General: Abdomen is flat. Bowel sounds are normal. There is no distension. Palpations: Abdomen is soft. Tenderness: There is no abdominal tenderness. Musculoskeletal: Right lower leg: No edema. Left lower leg: No edema. Neurological: General: No focal deficit present. Mental Status: She is alert and oriented to person, place, and time. Mental status is at baseline. Current Medications: Scheduled: ??? 0.9% NaCl 3 mL Intracatheter q8h ??? amLODIPine 10 mg Oral AT BEDTIME ??? busPIRone 5 mg Oral TID ? ? epoetin (Epogen,Procrit) injection 4,000 Units Intravenous DIALYSIS TUE, MARLIN, & SAT ??? escitalopram 5 mg Oral QDAY ??? heparin 5,000 Units Subcutaneous q8h ??? labetalol 300 mg Oral BID ??? losartan 100 mg Oral QDAY ??? memantine 5 mg Oral BID Continuous: PRN: ??? SALINE LOCK, INSERT AND MAINTAIN AND 0.9% NaCl AND 0.9% NaCl ??? acetaminophen ??? hydrALAZINE ??? polyethylene glycol 3350 ??? senna-docusate Significant Lab Results: Latest Reference Range & Units Most Recent Ferritin 13 - 204 ng/mL 2,026 (H) 09/30/23 05:41 Folate 7.0 - 31.4 ng/mL 12.3 09/01/22 07:06 Iron 40 - 150 ug/dL 77 09/30/23 05:41 TIBC Calculated 240 - 450 ug/dL 160 (L) 09/30/23 05:41 Transferrin 174 - 382 mg/dL 128 (L) 09/30/23 05:41 Transferrin Saturation % 16 - 50 % 48 09/30/23 05:41 (H): Data is abnormally high (L): Data is abnormally low Microbiology: N/A Imaging & Studies: CT chest/abdomen/pelvis (09/29/2023) 1.New age-indeterminate fractures of the right second, third, fourth anterior ribs, favored to be acute/subacute. Correlation with point tenderness. 2.Otherwise no evidence of osseous or visceral injury in the chest, abdomen or pelvis. CT head and spine (09/29/2023) 1. Small acute extra-axial hematoma along the right frontal convexity measuring up to 8 to 9 mm in thickness with minimal mass effect on the adjacent sulci. No midline shift. No new foci of hemorrhage. 2. No evidence of acute fracture in the cervical, thoracic, or lumbar spine. Multilevel degenerative changes as described above. ASSESSMENT & PLAN ESRD (end stage renal disease) (CMS/HCC) (POA: Unknown) Syncope and collapse (POA: Unknown) Subdural hematoma (CMS/HCC) (POA: Unknown) Fall, initial encounter (POA: Unknown) #Leukocytosis - Resolved - WBC 4.7 from 11.4 - likely reactive leukocytosis - Patient continues to remain afebrile, denies other symptoms (dysuria, urgency) - CTM #Ground level fall #Subdural hematoma - likely mechanical fall in setting of repeated falls recently - Neurosurgery consulted, no neurosurgical interventions recommended, will follow up outpatient - orthostatics positive, BP elevated when patient off dialysis, BP improving with dialysis - follow up on TTE to rule out cardiac syncope, pending. If patient otherwise ready for discharge, can be completed outpatient. - f/u telemetry - may need event monitor on discharge - outpatient follow up with neurology for normal pressure hydrocephalus work up #HTN - Improved BP control, further improvement noted with dialysis - On Labetalol 300mg BID, Amlodipine 10mg qhs, Losartan 100mg qd - Hydral PRN - Holding home HCTZ - Will continue with this regimen, CTM #ESRD w/ HD TTS #Secondary Hyperparathyroidism #Anemia - Nephrology following, dialysis TTS - Patient's daughter informed that outpatient dialysis schedule will be moved to [facility], Nephrology made aware - Anemia likely of chronic disease 2/2 ESRD, correlated with iron panel - Cont dialysis - strict intake and output - renally dose medications - will follow additional nephrology reccs - transfuse pRBCs for Hgb<7 ??#Right 2-4 rib fractures - Acute vs subacute - No point tenderness on exam and no pleuritic chest pain - Patient pulling 250 mL on IS, but denies pain on inspiration - Satting well on RA - Continue pulmonary toilet and incentive spirometer - CTM and maintain SpO2 > 90% - Pain control with tylenol as needed #Dementia - continue home Memantine #Depression #Anxiety - continue home Escitalopram 5mg daily - continue home Buspirone 5mg TID Code: Full Diet: Renal Electrolytes: Replete PRN PPx: SCDs Access: 2PIV and HD line Dispo: OT/PT advise multidisciplinary therapy, will look into SNF placement, can likely go back to [facility] The above assessment and plan will be discussed with the attending. This note is not final until attested by attending physician. Billy Bowling DO Internal Medicine Resident [facility] 10/04/2023 3:09 PM OSOFT BI CONSULTANT Associated attestation - Heraclio Cabrera MD - 10/04/2023 8:18 PM [employer] BI CONSULTANT I have verified the documentation of the resident including all history, exam, and medical decision-making details. I have personally performed a physical exam and have personally reviewed the data to support my medical decision-making as outlined in their note. I agree with their assessment and plan other than any corrections/additions as documented below. Corrections/Additions: - None Date of Service: 10/04/2023 Heraclio Cabrera MD * Rubio Manning, PT - 10/04/2023 2:55 PM CST [facility] Physical Medicine and Rehabilitation Physical Therapy Progress Note Patient: Kirsty Rea Med Record Number: [id number] Date of : 1940 Age: [age] year old PPE worn by staff: gloves PPE worn by patient: gown - patient, clean;socks - clean Tech: none Recommendations: Discharge PT Discharge Recommendations: Patient would benefit from multidisciplinary therapy This recommendation is made due to ongoing PT functional needs: address care for self in the home;address functional deficits SUBJECTIVE: Subjective: Agreeable to therapy Pain Assessment: Pain Location #1 Pain Scale/Observation: Numeric (0-10) Pain Rating Score #1: 0 Sedation Level #1: 1-Awake and alert PRECAUTIONS: Weight Bearing Status: (no restrictions) Activity Level: Up ad mushtaq OBJECTIVE: At start of therapy session, patient found in bed and with bed alarm on General Appearance: Older adult female; NAD LDAs: IV's: Peripheral line and Dialysis Site Observations: No s/s of distress Mental Status/Cognition: Level of Consciousness-Adult: Alert;Eyes Open Spontaneously Orientation Level: Disoriented to Person Cognition: Follows Commands-Consistent Mobility: A gait belt and non-slip socks were used for all out of bed activity this date. Bed Mobility: Supine to Sit: Minimal Assistance;Requires Verbal Cues for Technique with HOB in semi-fowlers position Sit to Supine: Activity Does Not Occur (ended in bedside chair) Transfers: Sit to Stand: Moderate Assistance Stand to Sit: Moderate Assistance Bed to Chair: Moderate Assistance to Left Type of Transfer: Stand Pivot Transfer Gait: Weight Bearing Status: (no restrictions) Distance Ambulated: 3 FEET Ambulation: Assistive Device: Gait Belt Ambulation: Level of Assistance: Moderate Assistance Ambulation: Gait Deviations: Shuffling gait;Knee Stability - Decreased during stance phase Comments: Able to take shuffling steps towards L to chair for stand pivot transfer. Pt with decreased knee stability causing knee buckling during transfer. Balance: Balance Scales/Tests Used: Sitting: Static/Dynamic;Standing: Static/Dynamic Sitting - Static: Good - Sitting - Dynamic: Fair + Standing - Static: Fair - Standing - Dynamic: Poor + ACTIVITY TOLERANCE: Patient's activity tolerance: fair TREATMENT/INTERVENTIONS: strengthening exercises, bed mobility training, transfer training, gait training and balance activities Modified Elizabeth: Current Modified Crosby Score: 4 AM-PAC 6 Clicks Mobility Raw Score:: 13 EDUCATION: While performing PT, Patient was instructed in:functional mobility training, safety awareness/fall precautions , use of call light Presented to patient who demonstrates Fair understanding of instructions given. ASSESSMENT: Patient would benefit from additional Physical Therapy sessions to achieve the following functionalgoals to enhance independence. Short Term Goals: Goal Formation With patient Patient will perform bed mobility with stand by assist Patient will transfer sit to/from stand with stand by assist Patient will transfer bed to/from chair with stand by assist Patient will ambulate 30 feet with minimal assist and appropriate AD Chcf Goal(s): Patient to discharge to appropriate next level of inpatient care. INFORMED CONSENT TO TREATMENT: Plan of care including recommended therapy, goals and frequency, discussed with patient who understands and agrees to proceed. Equipment Issued: none Plan: Patient continues to benefit from skilled therapy services., Continue with goals as established. If patient is discharged from the facility, this note serves as a discharge summary if further physical therapy visits did not occur. Refer to filed flowsheet for further details. Following therapy session, patient left in patient bedside chair, with green waffle cushion in place, with chair alarm on, with call light within reach. [employer]SULTANT * Leland Terrazas, ERYN/LD - 10/04/2023 2:17 PM CST Clinical Nutrition Assessment Brief Synopsis: Patient is diagnosed with severe malnutrition; Specific criteria can be found in assessment below Nutrition Plan: Consider diet liberalization (2/2 malnutrition) + Ensure Plus High Protein BID (1.5 kcal) (350 kcal, 20 grams pro, 40 grams CHO) Recommendations to Physician: Code for malnutrition Comments: Pt screened for low BMI. PO intake is 20-90% at meals. Pt denies poor PO intake but does state she has lost weight. States ~20Ibs but not sure of timeframe. EMR shows weight loss from 2021 when she was 159Ibs and is now ~120Ibs. This is a 23.8% wt loss x 14 months. NFPA shows moderate-severe wasting. See details below. She denies chewing/swallowing issues. On HD and received dialysis today. K+ 4.9. Last BM 10/02/23. Will continue to monitor as needed. 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 BMI Range: Underweight IBW/lb (Calculated) Female: 145, Recent Weights/Methods 04/11/2023 0737 06/15/2023 1049 07/06/2023 0934 08/03/2023 1012 09/29/2023 1529 09/30/2023 1256 10/01/2023 0750 10/04/2023 0400 Weight: 58.5 kg (129 lb) 55.2 kg (121 lb 9.6 oz) 54.4 kg (120 lb) 59 kg (130 lb) 59 kg (130 lb) -- -- 54.5 kg (120 lb 1.6 oz) Weight Method : Standing Standing -- Stated -- -- -- -- Wt Comments: Monitoring Diet order accuracy Current diet order: Renal Standard Current supplement order: None Nutrition recommendation: alter/change nutrition order P.O.Intake for the past 48 hrs: % Meal Taken Av % Min: 20 % Max: 90 % Food Allergies: No known food allergies Chewing/Swallowing: Dentures Pain affecting intake: No Estimated Needs: KCAL: 9461-1570 (35-40kcal/kg ABW) Protein (g): 65 (1.2g/kg ABW) Fluid (ml): 1 ml/kcal Needs based on: Kcal/kg- (Comment) (54.5kg) Recommended Access Route: PO Malnutrition Etiology: Malnutrition in the context of: chronic disease, Malnutrition Severity: Severe Protein Calorie BMI: Body mass index is 17.74 kg/m??. Dietary Intake Evaluation Energy Intake: < 75% of estimated energy requirement for > 1 month GI Concerns: Anorexia Nutrition Focused Physical Assessment: Loss of Subcutaneous Fat Orbital: Moderate Buccal: Moderate Muscle Loss Temples (Temporalis Muscle): Moderate Clavicles (Pectoralis & Deltoids): Severe Shoulders (Deltoids): Moderate Interosseous Muscle: Moderate Pertinent Nutrition Labs: Recent Labs Component Name 10/04/23 0457 10/03/23 0516 10/02/23 0733 08/15/22 0339 03/09/22 1312 BUN 34* 25 11 - 65* CREATININE 5.30* 4.24* 2.38* - 2.74* NA 141 141 139 - - POTASSIUM 4.7* 3.8 3.4* - 3.9 CL 103 104 99 - - CO2 26 29 28 - 21 GLUCOSE 92 114 93 - 99 CALCIUM 10.0 10.1 10.0 - 8.7 PROT 5.5* 5.8* 5.6* - - ALB 2.5* 2.7* 2.5* - - TBILI 0.6 0.5 0.5 - - ALKPHOS 130 136 128 - 72 ALT 14 15 13 - 12 AST 16 17 19 - 14 ANIONGAP 12 8 12 - - BCR 6* 6* 5* - - OSMOLALITY 299* 297* 287 - - AGRATIO 0.8* 0.9* 0.8* - - EGFR 8* 10* 20* - 16* EGFRAFR - - - - 18* - = values in this interval not displayed. Pertinent Nutrition Medications: Current Facility-Administered Medications Medication ??? 0.9% NaCl injection 3 mL And ??? 0.9% NaCl injection 1-10 mL ??? acetaminophen (Tylenol) tablet 500 mg ??? amLODIPine (Norvasc) tablet 10 mg ??? busPIRone (Buspar) tablet 5 mg ??? epoetin (Epogen; Procrit) injection 4,000 Units ??? escitalopram (Lexapro) tablet 5 mg ??? heparin injection 5,000 Units ??? hydrALAZINE (Apresoline) injection 10 mg ??? labetalol (Normodyne; Trandate) tablet 300 mg ??? losartan (Cozaar) tablet 100 mg ??? memantine (Namenda) tablet 5 mg ??? polyethylene glycol 3350 (Miralax) packet 17 g ??? senna-docusate (Senokot-S) tablet 1 tablet Skin/Wound: No wounds Nutrition Care Process (1) Nutrition Diagnostic Statement: Malnutrition severity: : Severe related to:: anorexia;age related sarcopenia;inadequate protein-energy intake as evidenced by:: loss of subcutaneous fat;loss of muscle mass;unintentional weight loss Nutrition Diagnostic Statement Progress: New diagnostic statement established Nutrition Intervention: Meals and snacks:;Medical Food Supplements: Monitoring: PO intake, labs, weight, BM, I/O Evaluation: Nutrition Goal: Total intake will meet estimated nutrient needs Nutrition Goal Timeframe: Throughout stay Nutrition Goal Progress: New goal established Ascom #: [id number] [employer] * Leland García Sb - 10/04/2023 1:57 PM CST Family Discussion Progress Note Duration: 10 minutes Date: 10/04/2023 Spoke with: Mrs. Monroy (patient's daughter) over the PHONE Summary of the Discussion: Updated the patient's daughter about Mrs. Rea's current status and that she was in no acute distress over night and currently eating lunch in her bed with nurse at bedside. Reassured patient's daughter that there is low suspicion for UTI to explain the confusion given that she is afebrile and leukocytosis resolved this morning, thus a UA and culture was not indicated (this was also discussed with her 1 day ago). Discussed that the TTE is not an emergent imaging that needs to be completed within this hospitalization and discussed the possibility for outpatient TTE if needed, given the low suspicion for cardiac etiology of her recent fall. Updated her that neurology will follow up with her outpatient for concerns of normal pressure hydrocephalus. In regards to the patient's hemodialysis schedule, she informed us that [facility]'s dialysis schedule is actually MWF now instead of TTS. Finally, patient's daughter was updated about discharge plans to [facility]. She requested that we arrange transportation and providean updated medication list for her outpatient physician to see. She also requests that we call her or her sister (Stacy) and notify [facility] on the exact day the patient will be discharged. I reassured her that we will have her discharge orders and transportation arranged. Patient's daughter was agreeable and understood the current updates as discussed above and had no further questions or concerns at this time. Agreed to call her back for further updates. Leland García MS3 [facility] 10/04/2023 2:10 PM [employer] CONSULTANT * Freeman Medrano RN - 10/04/2023 1:43 PM CST 10/04/23 1245 Post Hemodialysis Patient Response to Treatment Tolerated tx well Post Dialysis Patient Status Treatment Completed Ultrafiltration Amount (ml) 1004 Dialyzer Clearance Lightly streaked Amount of blood processed (Liters) 70.3 Post Hemodialysis Comment UF goal met, VSS TX Charge entered in Charge Capture Yes [employer]SULTANT * Freeman Medrano RN - 10/04/2023 1:40 PM CST Problem: Hemodynamic Status/Cardiac Output Goal: Patient has stable vital signs and fluid balance Outcome: Progressing Problem: Fluid and Electrolyte Imbalance Goal: Fluid and electrolyte balance are achieved/maintained 10/04/2023 1340 by Freeman Medrano RN Outcome: Progressing 10/04/2023 1340 by Freeman Medrano RN Outcome: Progressing Problem: Infection Goal: Signs and symptoms of infections are decreased or avoided 10/04/2023 1340 by Freeman Medrano RN Outcome: Progressing 10/04/2023 1340 by Freeman Medrano RN Outcome: Progressing [employer] CONSULTANT * Leland García - 10/04/2023 11:45 AM CST [facility] INTERNAL MEDICINE PROGRESS NOTE Patient: Kirsty Rea Sex: female Age: [age] year old Date of : 1940 Date of Admission: 09/29/2023 Date: 10/04/2023 LOS: 3 SUBJECTIVE Interval History: NAEON. Urine x1 over night with no dysuria or hematuria. Denies CP, palpitations, SOB, abd tenderness. Getting HD this morning. Hospital Course: Mrs. 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 Unsure if accompanied by LOC. Pertinent history includes increased falls and AMS since her CVA in 07/2022. At the OSH, CT head revealed right frontal convexity SDH. She was then transferred to [facility] (elevated BP most likely 2/2 to volume overload +/- uncontrolled HTN. and GCS 14) for further evaluation by trauma and NSGY for SDH. No acute indications for surgicalintervention at that time. Labs are c/w ESRD patient. CT head with small SDH, CT chest showed age indeterminate ribs 2-4 fractures but was denying pain or pain with inspiration. She is on labetalol 30 0mg bid losartan 50mg qd and amlodipine 5mg added today but was increased to losartan 100 mg and amlodipine 10 mg qhs given her elevated BPs throughout her hospitalization. Nephrology was consulted for dialysis and currently following for HD sessions. Orthostatics were positive, TTE is still pending. Given her concerning symptoms and radiographic imaging for possible NPH, she will get neuro f/u for NPH workup. Of note, the patient required rapid response on 10/02/23 which resolved with oxygen, prn hyrdralazine x2, and CXR which was unremarkable. OBJECTIVE Vital Signs: Vitals: 10/04/23 1108 10/04/23 1123 10/04/23 1138 10/04/23 1153 BP: 124/61 149/59 139/58 153/64 Pulse: 75 72 72 70 Resp: 18 17 18 16 Temp: SpO2: Weight: Height: Temp Min: 97.7 ??F (36.5 ??C) Max: 99.5 ??F (37.5 ??C), Pulse Min: 60 Max: 106, Resp Min: 9 Max: 24, BP Min: 119/47 Max: 216/70 Intake & Output: In: 740 [P.O.:740] Out: - Physical Exam: Physical Exam Constitutional: General: She is not in acute distress. Comments: No acute distress but appears fatigued HENT: Head: Comments: Right upper cheek lesion/bruise with ecchymosis, improved from yesterday. Cardiovascular: Rate and Rhythm: Normal rate and regular rhythm. Heart sounds: No murmur heard. No gallop. Pulmonary: Effort: Pulmonary effort is normal. No respiratory distress. Breath sounds: Normal breath sounds. Comments: No respiratory distress or using NC. No retractions or tracheal tugging. Abdominal: General: Abdomen is flat. There is no distension. Palpations: There is no mass. Tenderness: There is no abdominal tenderness. Musculoskeletal: Right lower leg: No edema. Left lower leg: No edema. Comments: Left upper extremity AVG for HD Skin: General: Skin is warm. Coloration: Skin is not jaundiced. Neurological: General: No focal deficit present. Mental Status: She is alert and oriented to person, place, and time. Comments: AxO x3 person, place, location. Cooperative and engages in communication. Smiles and waves upon entering room. Current Medications: Scheduled: ??? 0.9% NaCl 3 mL Intracatheter q8h ??? amLODIPine 10 mg Oral AT BEDTIME ??? busPIRone 5 mg Oral TID ? ? epoetin (Epogen,Procrit) injection 4,000 Units Intravenous DIALYSIS TUE, MARLIN, & SAT ??? escitalopram 5 mg Oral QDAY ??? heparin 5,000 Units Subcutaneous q8h ??? labetalol 300 mg Oral BID ??? losartan 100 mg Oral QDAY ??? memantine 5 mg Oral BID Continuous: PRN: ??? SALINE LOCK, INSERT AND MAINTAIN AND 0.9% NaCl AND 0.9% NaCl ??? acetaminophen ??? hydrALAZINE ??? polyethylene glycol 3350 ??? senna-docusate Significant Lab Results: CBC: Recent Labs Component Name 10/04/2345610/03/23 0516 10/02/23 0733 WBC 4.7 11.4* 7.2 HGB 8.3* 8.6* 8.8* HCT 26.4* 27.9* 27.4* PLTCOUNT 239 275 229 BMP: Recent Labs Component Name 10/04/2345610/03/23 0516 10/02/23 0733 NA 141 141 139 POTASSIUM 4.7* 3.8 3.4* CL 103 104 99 CO2 26 29 28 BUN 34* 25 11 CREATININE 5.30* 4.24* 2.38* EGFR 8* 10* 20* GLUCOSE 92 114 93 CALCIUM 10.0 10.1 10.0 ANIONGAP 12 8 12 Recent Labs Component Name 10/04/2345610/03/23 0516 10/02/23 0733 PHOS 3.9 3.7 3.3 MAGNESIUM 1.9 1.8 1.8 LFTs: Recent Labs Component Name 10/04/2345610/03/23 0516 10/02/23 0733 09/29/23 1719 03/09/22 1312 TPROT - - - - 5.4* ALBUMIN - - - - 3.6 AST 16 17 19 - 14 ALT 14 15 13 - 12 ALKPHOS 130 136 128 - 72 TBIL - - - - 0.3 LIPASE - - - - 35 - = values in this interval not displayed. Coags: Recent Labs Component Name 09/29/23 1719 08/27/22 0439 08/26/22 0330 PT 12.2 11.8* 12.9 INR 0.9 0.9 1.0 ENDO: Recent Labs Component Name 08/20/22 0250 TSH 4.654 Recent Labs Component Name 08/16/22 0044 HGBA1C 5.4 Cardiac: Recent Labs Component Name 08/22/22 0747 08/21/22 2340 08/21/22 1655 TROPONINI 0.037* 0.058* 0.054* ABGs: Recent Labs Component Name 08/22/22 1801 08/22/22 0816 08/21/22 1930 PH 7.29* 7.31* 7.34* PCO2 33* 32* 31* PO2 66* 93 312* FIO2 40.0 26.0 100.0 UA: Recent Labs Component Name 08/19/22 1300 COLORU Yellow CLARITYU Slt Cloudy* LABSPEC 1.011 PROTEINTO 146 163 KETONES Negative BILIRUBINUR Negative BLOODU Negative NITRITE Negative LEUKOCYTE 2+* WBCU 11-20* URINEBACT Trace* Microbiology: COVID-19 PCR: Not detected Influenza A: Not detected Influenza B: Not detected Imaging & Studies: CT CHEST ABDOMEN PELVIS W CONT Result Date: 09/29/2023 Impression: 1.New age-indeterminate fractures of the right second, third, fourth anterior ribs, favored to be acute/subacute. Correlation with point tenderness. 2.Otherwise no evidence of osseous or visceral injury in the chest, abdomen or pelvis. > Dictated by Heath Wu MD, (radiologyresident). I, Juwan Aceves have personally reviewed and interpreted this examination/study. > Interpreting Provider: Juwan Aceves on 09/29/2023 7:[address] HEAD WO CONTRAST Result Date: 09/29/2023 IMPRESSION: 1. Small acute extra-axial hematoma along the right frontal convexity measuring up to 8to 9 mm in thickness with minimal mass effect on the adjacent sulci. No midline shift. No new foci of hemorrhage. 2. No evidence of acute fracture in the cervical, thoracic, or lumbar spine. Multilevel degenerative changes as described above. > Interpreting Provider: Rosa Davis MD on 09/29/2023 6:[address] CERVICAL SPINE WO CONTRAST Result Date: 09/29/2023 IMPRESSION: 1. Small acute extra-axial hematoma along the right frontal convexity measuring up to 8to 9 mm in thickness with minimal mass effect on the adjacent sulci. No midline shift. No new foci of hemorrhage. 2. No evidence of acute fracture in the cervical, thoracic, or lumbar spine. Multilevel degenerative changes as described above. > Interpreting Provider: Rosa Davis MD on 09/29/2023 6:[address] THORACIC SPINE WO CONTRAST Result Date: 09/29/2023 IMPRESSION: 1. Small acute extra-axial hematoma along the right frontal convexity measuring up to 8to 9 mm in thickness with minimal mass effect on the adjacent sulci. No midline shift. No new foci of hemorrhage. 2. No evidence of acute fracture in the cervical, thoracic, or lumbar spine. Multilevel degenerative changes as described above. > Interpreting Provider: Rosa Davis MD on 09/29/2023 6:[address] LUMBAR SPINE WO CONTRAST Result Date: 09/29/2023 IMPRESSION: 1. Small acute extra-axial hematoma along the right frontal convexity measuring up to 8to 9 mm in thickness with minimal mass effect on the adjacent sulci. No midline shift. No new foci of hemorrhage. 2. No evidence of acute fracture in the cervical, thoracic, or lumbar spine. Multilevel degenerative changes as described above. > Interpreting Provider: Rosa Davis MD on 09/29/2023 6:11 PM ASSESSMENT & PLAN ESRD (end stage renal disease) (CMS/HCC) (POA: Unknown) Syncope and collapse (POA: Unknown) Subdural hematoma (CMS/HCC) (POA: Unknown) Fall, initial encounter (POA: Unknown) ASSESSMENT: Mrs. Rea is an 82 year old female with PMHx of ESRD on HD TTS via LUE AVG, Dementia,Gout, HTN, HLD, and h/o CVA in 07/2022 who is hospitalized following an unwitnessed fall likely orthostatic in etiology (vs syncope vs hematoma vs cardiogenic) with steady improvement in mental status and respiration on RA. Patient would benefit with further workup for the etiology of her fall although it is likely attributed to an orthostatic etiology given her age (reduced baroreceptor sensitivity), on BB and CCBs, in bed a lot of the time, and the fact that she was undergoing HD (large volume shifts occurring around the time of her fall). PLAN: #Unwitnessed ground level fall, likely orthostatic etiology (vs cardiogenic vs vasovagal) #R-sided Subdural Hematoma #Confusion - Likely fall from orthostatic etiology given volume shift during HD, repeat falls in the past, age, use of CCB/BBs. - NSGY and trauma consulted and no acute interventions required. PLAN: - Outpatient follow up with neurology for normal pressure hydrocephalus work up - Orthostatics positive, can't give fluids considering HTN and volume overload w ESRD - 10/02/23: Rapid response called for SOB/hypertensive emergency requiring prn pressors and supp O2;CXR unremarkable. Resolved. - Continue telemetry - F/u TTE for cardiac etiology workup and update pt's daughter. TTE not extremely pertinent as thistime given low risk of cardiac etiology and even if fall is due to cardiac reasons, she is a poor surgical candidate at this time and given her SDH and risk would be at increased risk if she placed on AC. Can consider an outpatient TTE if need be but pending TTE will not be the reason the patient remains in the hospital. - Confusion likely in the setting of ESRD, SHD, and recent fall. Improved mentation/A&Ox3 today. Pt's mcc was contacted to establish her baseline mentation. Per pt's mcc nurse: - Alert to person only, sometimes location - Able to feed herself - No sleep disturbances - Uses wheelchair but can independently propel herself - Overall very sarcastic but still pleasant to staff - Pt's daughter updated by phone #Leukocytosis - WBC 4.7 today > 11.4 on 10/03/23 - Likely reactive leukocytosis (vs infectious (UTI) vs hemoconcentration) - Afebrile, no dysuria, urgency - CTM, but low threshold to evaluate for UTI given history and oliguria ??#Right 2nd-4th rib fractures - Acute vs subacute - No point tenderness on exam and no pleuritic chest pain - Patient pulling 250 mL on IS, but denies pain on inspiration - Satting well on RA PLAN: - Continue pulmonary toilet and incentive spirometer - CTM and maintain SpO2 > 90% - Pain control with tylenol as needed #ESRD w/ HD??TTS #Secondary Hyperparathyroidism #Anemia (likely ACD) - Nephrology following; appreciate recs - Likely ACD 2/2 ESRD (Ferritin 2025 on 09/30/23) -??Iron panel 09/30/2023 inconsistent with CARLA - Secondary hyperparathyroidism 2/2 ESRD PLAN: - Strict I/Os - Transfuse pRBCs for Hgb<7 - Renally dose medications - iCal 1.16, vit D 30.7, PTH 162 (10/04/23) - HD today with no complications - Per Julian, HD schedule changed to MWF #HTN - Continue to monitor post dialysis - Current regimen: labetalol 300 mg BID, losartan 100 mg qd, amlodipine 10 mg qhs PLAN: - Continue current regimen #Oliguria - Uses purewick; urinates once per day large volume per nurse; denies dysuria or hematuria PLAN: - Low threshold for UTI evaluation given patient's h/o of known recurrent UTI and AMS this admission. - Leukocytosis resolved (as above) ?? #Dementia - Continue home memantine 5 mg BID - Outpatient neuro f/u for NPH evaluation ?? #Depression #Anxiety - Continue home Escitalopram 5mg daily - Continue home Buspirone 5mg TID - Stable; denies need for pastoral care or SI/HI at this time Code: Full Diet: Renal Electrolytes: Replete PRN PPx: Heparin and SCDs Access: 2PIV and HD line Dispo: [facility] home The above assessment and plan will be discussed with the attending. This note is not final until attested by attending physician. Leland García MS3 [facility] 10/04/2023 1:21 PM [employer] CONSULTANT * Lyssa Guerra - 10/04/2023 8:55 AM CST Images from the original note were not included. Updated progress notes sent to patient's normal Outpatient Hemodialysis Dialysis center. Lyssa Guerra Kidney Navigator Ascom: [phone] Office: [phone] [employer]SULTANT * Elsy Cabrera RN - 10/04/2023 8:16 AM CST Problem: Pain/Discomfort Goal: Patient exhibits reduced pain/discomfort as evidenced by pain scores Outcome: Progressing Goal: Patient uses pharmacological and non-pharmacological pain management strategies. Outcome: Progressing Goal: Patient verbalizes acceptable level of pain relief and ability to engage in desired activity. Outcome: Progressing [employer] BI CONSULTANT * Freeman Medrano RN - 10/04/2023 6:35 AM CST REPORT BEFORE DIALYSIS Diagnosis (MARSHALL/CRF):marshall Non-Renal Diagnosis ESRD Isolation:No active isolations Does patient have signs or symptoms of respiratory infection (fever, cough, shortness of breath):no Allergies: Allergies Allergen Reactions ??? Ramipril Other Other reaction(s): Other (See Comments) Kidney Damage Kidney Damage Code Status:Full Code Orientation Status:x1 On telemetry/Rhythm:yes Oxygen:no Given any medications:see mar Need for pain medications:no Blood pressure issues:hypertensive On any drips:no Is patient diabetic:no Any labs to draw:no Any other procedures today:echo Any concerns about this patient:no Any medications to be given with dialysis:See mar Due date of next Central Line Dressing change:unk Primary RN educated on Incapacitated Nurse:yes [employer] CONSULTANT * Saji James RN - 10/04/2023 3:03 AM CST Problem: Pain/Discomfort Goal: Patient exhibits reduced pain/discomfort as evidenced by pain scores Outcome: Progressing Goal: Patient uses pharmacological and non-pharmacological pain management strategies. Outcome: Progressing Goal: Patient verbalizes acceptable level of pain relief and ability to engage in desired activity. Outcome: Progressing [employer] BI CONSULTANT * Billy Bowling, - 10/03/2023 7:17 PM CST [facility] INTERNAL MEDICINE PROGRESS NOTE Patient: Kirsty Rea Sex: female Age: [age] year old Date of : 1940 Date of Admission: 09/29/2023 Date: 10/03/2023 LOS: 2 SUBJECTIVE Interval History: Rapid called overnight for concerns agitation, tachypnea, and hypertension, placed on 4L O2. BP improved s/p IV hydral and 5mg PO amlodipine, daytime Amlodipine switched to nightly 10mg. Weaned to room air, CXR obtained negative for acute process. DVT ppx sqheparin added. This AM patient was HDS, no acute complaints. A&Ox2. BP remained elevated, Losartan changed to 100mg. 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 She has had increased frequency in falls and delusional thinking since her CVA in 07/2023. Per pt's daughter, pt was at dialysis when treatment team noticed she was altered and sent her to OSH where CT head revealed right frontal convexity SDH. Decision was made to transfer pt to [facility] for further workup and neurosurgical evaluation. The patient was evaluated by trauma and NSGY for SDH and there were no indicaiton of any surgical intervention. The patient's labs are consistent with ESRD patient. CT head with small SDH, CT chest showed age indeterminate r ibs 2-4 fractures. Patient BP was elevated on admission most likely 2/2 to volume overload +/- uncontrolled HTN. On labetalol 300mg bid losartan 50mg qd and amlodipine 5mg added today. Nephrology wasconsulted for dialysis. Syncope workup done, orthostatics positive,TTE pending. Symptoms and radiographic imaging were concerning for possible NPH. She will require follow up with neurology for NPH workup. On 10/03, WBC elevated to 11.4, unclear etiology. OBJECTIVE Vital Signs: Vitals: 10/02/23 2326 10/03/23 0019 10/03/23 0512 10/03/23 0742 BP: (!) 193/70 159/99 160/68 151/71 Pulse: 89 89 92 89 Resp: Temp: 98.6 ??F (37 ??C) 97.8 ??F (36.6 ??C) 98.6 ??F (37 ??C) SpO2: 93% 95% 95% Weight: Height: Temp Min: 97.7 ??F (36.5 ??C) Max: 99.5 ??F (37.5 ??C), Pulse Min: 60 Max: 106, Resp Min: 9 Max: 24, BP Min: 119/47 Max: 216/70 Intake & Output: In: 1220 [P.O.:1220] Out: - Physical Exam: Physical Exam Constitutional: General: She is not in acute distress. Appearance: She is not ill-appearing. Cardiovascular: Rate and Rhythm: Normal rate and regular rhythm. Pulses: Normal pulses. Heart sounds: Normal heart sounds. Pulmonary: Effort: Pulmonary effort is normal. Breath sounds: Normal breath sounds. No wheezing or rhonchi. Abdominal: General: Abdomen is flat. Bowel sounds are normal. There is no distension. Palpations: Abdomen is soft. Tenderness: There is no abdominal tenderness. Musculoskeletal: Right lower leg: No edema. Left lower leg: No edema. Neurological: General: No focal deficit present. Mental Status: She is alert and oriented to person, place, and time. Mental status is at baseline. Current Medications: Scheduled: ??? 0.9% NaCl 3 mL Intracatheter q8h ??? amLODIPine 10 mg Oral AT BEDTIME ??? busPIRone 5 mg Oral TID ? ? epoetin (Epogen,Procrit) injection 4,000 Units Intravenous DIALYSIS TUE, MARLIN, & SAT ??? escitalopram 5 mg Oral QDAY ??? heparin 5,000 Units Subcutaneous q8h ??? labetalol 300 mg Oral BID ??? [START ON 10/04/2023] losartan 100 mg Oral QDAY ??? memantine 5 mg Oral BID Continuous: PRN: ??? SALINE LOCK, INSERT AND MAINTAIN AND 0.9% NaCl AND 0.9% NaCl ??? acetaminophen ??? hydrALAZINE ??? polyethylene glycol 3350 ??? senna-docusate Significant Lab Results: Latest Reference Range & Units Most Recent Ferritin 13 - 204 ng/mL 2,026 (H) 09/30/23 05:41 Folate 7.0 - 31.4 ng/mL 12.3 09/01/22 07:06 Iron 40 - 150 ug/dL 77 09/30/23 05:41 TIBC Calculated 240 - 450 ug/dL 160 (L) 09/30/23 05:41 Transferrin 174 - 382 mg/dL 128 (L) 09/30/23 05:41 Transferrin Saturation % 16 - 50 % 48 09/30/23 05:41 (H): Data is abnormally high (L): Data is abnormally low Microbiology: Hep B negative Latest Reference Range & Units Most Recent Influenza A Rapid ANGELA Not Detected Not Detected 09/30/23 09:48 Influenza B ANGELA Rapid Not Detected Not Detected 09/30/23 09:48 SARS-CoV-2 Not detected Not detected 09/30/23 09:48 Imaging & Studies: CT chest/abdomen/pelvis (09/29/2023) 1.New age-indeterminate fractures of the right second, third, fourth anterior ribs, favored to be acute/subacute. Correlation with point tenderness. 2.Otherwise no evidence of osseous or visceral injury in the chest, abdomen or pelvis. CT head and spine (09/29/2023) 1. Small acute extra-axial hematoma along the right frontal convexity measuring up to 8 to 9 mm in thickness with minimal mass effect on the adjacent sulci. No midline shift. No new foci of hemorrhage. 2. No evidence of acute fracture in the cervical, thoracic, or lumbar spine. Multilevel degenerative changes as described above. ASSESSMENT & PLAN ESRD (end stage renal disease) (CMS/HCC) (POA: Unknown) Syncope and collapse (POA: Unknown) Subdural hematoma (CMS/HCC) (POA: Unknown) Fall, initial encounter (POA: Unknown) #Leukocytosis - WBC 11.4 up from 7.2 - ddx includes infectious (UTI), reactive, hemoconcentration - Patient afebrile, denies other symptoms (dysuria, urgency) - CTM, low threshold to assess urine #Ground level fall #Subdural hematoma #Syncope? - likely mechanical fall in setting of repeated falls recently - Neurosurgery consulted, no neurosurgical interventions recommended - orthostatics positive, can't give fluids considering HTN and volume overload w ESRD PLAN - follow up on TTE to rule out cardiac syncope, pending - keep on telemetry, follow up on it - may need event monitor on discharge - outpatient follow up with neurology for normal pressure hydrocephalus work up ??#Right 2-4 rib fractures - Acute vs subacute - No point tenderness on exam and no pleuritic chest pain - Patient pulling 250 mL on IS, but denies pain on inspiration - Satting well on RA Plan - Continue pulmonary toilet and incentive spirometer - CTM and maintain SpO2 > 90% - Pain control with tylenol as needed #HTN - on lisinopril 20mg BID, HCTZ 12.5mg daily, labetalol 100mg bid - started on home Labetalol 300mg bid and Losartan 50mg daily - Holding HCTZ PLAN - amlodipine increased to 10mg, hydral 10mg PRN - Losartan increased to 100mg qd - Continue to monitor #ESRD w/ HD TTS #Secondary Hyperparathyroidism #Anemia - Nephrology following - dialysis on 10/01 - likely anemia of chronic disease / ESRD - Iron panel 09/30/2023 negative PLAN - strict intake and output - renally dose medications - will follow nephrology reccs - will continue dialysis as scheduled - transfuse pRBCs for Hgb<7 #Dementia - continue home Memantine #Depression #Anxiety - continue home Escitalopram 5mg daily - continue home Buspirone 5mg TID Code: Full Diet: Renal Electrolytes: Replete PRN PPx: SCDs Access: 2PIV and HD line Dispo: OT/PT advise multidisciplinary therapy, will look into SNF placement, can likely go back to [facility] The above assessment and plan will be discussed with the attending. This note is not final until attested by attending physician. Billy Bowling DO Internal Medicine Resident [facility] 10/03/2023 7:18 PM OSOFT BI CONSULTANT * Rubio Manning, PT - 10/03/2023 4:04 PM CST [facility] Department of Physical Medicine & Rehabilitation Progress Note Patient: Kirsty Rea Med Record Number: [id number] Date of : 1940 Age: [age] year old 10/03/23 1536 Missed Visit Missed Visit Other (Comment) Pt asleep in bedside chair upon this check writer's arrival. PT will continue to follow and attempt as able. 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 The patient was evaluated by trauma and NSGY for SDH and there were no indicaitonof any surgical intervention. To note patient BP was elevated on admission most likely 2.2 to volume overload +/- uncontrolled HTN. The patient labs are consistent with ESRD patient. CT head with small SDH. We will continue to follow for HD. Interval history: 10/03 the patient had a rapid response for SOB however, CXR was normal and patient improved after IV hydralazine. . Cause of ESRD: Hypertension nephropathy- First HD 07/2022. Urine: No Access: RUE AVF Dialysis Center: [facility] Dialysis Days: TTS Dialysis Duration: 3 Hours 30 Minutes Dry Weight: NR Last Dialysis: 09/27/2023 Director Case: Dariel LARRY/BFR: Attempted to call Patient's dialysis center but no one picked up. We will try later. Review of Systems: Review of Systems Constitutional: Positive for malaise/fatigue. HENT: Negative. Eyes: Negative. Respiratory: Negative. Cardiovascular: Negative. Gastrointestinal: Negative. Genitourinary: Negative. Musculoskeletal: Negative. Skin: Negative. Neurological: Positive for dizziness, weakness and headaches. Endo/Heme/Allergies: Negative. Psychiatric/Behavioral: Negative. Past Medical History: Diagnosis Date ??? Anxiety ??? CKD (chronic kidney disease) stage 3, GFR 30-59 ml/min ([facility]) proteinuria; Director Case = Dr. Reyes ??? CVA (cerebral vascular accident) ([facility]) 08/14/2022 ??? Dementia without behavioral disturbance ([facility]) mild ??? ESRD on dialysis ([facility]) [facility], [facility] 07/06/23 ??? Gout ??? HTN (hypertension), benign ??? 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 Morphea ??? Osteopenia Past Surgical History: Procedure Laterality Date ??? Appendectomy ??? Breast Reduction ??? Cholecystectomy, Laparoscopic ??? HX FRACTURE TX ??? INSERTION GRAFT ARTERIO-VENOUS (AV) Left 06/15/2023 Left; LEFT UPPER ARM ARTERIOVENOUS GRAFT ??? OOPHORECTOMY 1971 ??? Parathyroidectomy 1999 Family History Problem Relation Name Age of Onset ??? Hypertension Father ??? Hypertension Brother Social History: Social History Socioeconomic History ??? Marital status: Spouse name: Not on file ??? Number of children: Not on file ??? Years of education: Not on file ??? Highest education level: Not on file Occupational History ??? Not on file Tobacco Use ??? Smoking status: Former Packs/day: 1 Types: Cigarettes Start date: 10/31/1965 Quit date: 10/31/1983 Years since quittin.9 ??? Smokeless tobacco: Never Vaping Use ??? Vaping Use: Never used Substance and Sexual Activity ??? Alcohol use: Yes Alcohol/week: 0.8 standard drinks of alcohol Types: 1 Standard drinks or equivalent per week Comment: occasionally ??? Drug use: No ??? Sexual activity: Not Currently Partners: Male Other Topics Concern ??? Not on file Social History Narrative ??? Not on file Social Determinants of Health Financial Resource Strain: Not on file Food Insecurity: Not on file Transportation Needs: Not on file Stress: Not on file Housing Stability: Not on file Allergies: Allergies Allergen Reactions ??? Ramipril Other Other reaction(s): Other (See Comments) Kidney Damage Kidney Damage Home Medications: No current facility-administered medications on file prior [...] Take 1 tablet by mouth once daily Hospital Medications: ??? 0.9% NaCl 3 mL Intracatheter q8h ??? amLODIPine 10 mg Oral AT BEDTIME ??? busPIRone 5 mg Oral TID ? ? epoetin (Epogen,Procrit) injection 4,000 Units Intravenous DIALYSIS TUE, TUE, & TUE ??? escitalopram 5 mg Oral QDAY ??? heparin 5,000 Units Subcutaneous q8h ??? labetalol 300 mg Oral BID ??? [START ON 10/04/2023] losartan 100 mg Oral QDAY ??? memantine 5 mg Oral BID PRN Meds: ??? SALINE LOCK, INSERT AND MAINTAIN AND 0.9% NaCl AND 0.9% NaCl ??? acetaminophen ??? hydrALAZINE ??? polyethylene glycol 3350 ??? senna-docusate OBJECTIVE: Vitals: 10/02/23 2326 10/03/23 0019 10/03/23 0512 10/03/23 0742 BP: (!) 193/70 159/99 160/68 151/71 Pulse: 89 89 92 89 Resp: Temp: 98.6 ??F (37 ??C) 97.8 ??F (36.6 ??C) 98.6 ??F (37 ??C) SpO2: 93% 95% 95% Weight: Height: Estimated body mass index is 19.2 kg/m?? as calculated from the following: Height as of this encounter: 1.753 m (5' 9 ). Weight as of this encounter: 59 kg (130 lb). Intake/Output Summary (Last 24 hours) at 10/03/2023 1247 Last data filed at 10/03/2023 0935 Gross per 24 hour Intake 300 ml Output -- Net 300 ml Physical Exam: General: Alert and oriented to person, place, time and situation, no acute distress Neck: No JVD or cartoid bruit. Trachea midline. Heart: RRR, Normal S1 and S2. No murmurs appreciated. Chest: Normal breath sounds, no wheezes or rhonchi Abdomen: Soft, non-tender, non-distended, bowel sounds present Extremities: No lower extremity edema, 2+ distal peripheral pulses Neuro: No focal deficits noted Intake/Output Summary (Last 24 hours) at 10/03/2023 1247 Last data filed at 10/03/2023 0935 Gross per 24 hour Intake 300 ml Output -- Net 300 ml LABS: CBC: Recent Labs Component Name 10/03/23 0516 10/02/23 0733 10/01/23 0536 WBC 11.4* 7.2 9.6 HGB 8.6* 8.8* 8.5* HCT 27.9* 27.4* 27.0* MCV 93.9 90.7 92.8 BMP: Recent Labs Component Name 10/03/23 0516 10/02/23 0733 10/01/23 0536 NA 141 139 139 CL 104 99 100 CO2 29 28 26 BUN 25 11 15 CREATININE 4.24* 2.38* 2.52* Recent Labs Component Name 10/03/23 0516 10/02/23 0733 10/01/23 0536 CALCIUM 10.1 10.0 10.0 PHOS 3.7 3.3 2.3* LFT: Recent Labs Component Name 10/03/23 0516 10/02/23 0733 10/01/23 0536 PROT 5.8* 5.6* 5.5* ALB 2.7* 2.5* 2.5* ALKPHOS 136 128 122 AST 17 19 19 ALT 15 13 13 TBILI 0.5 0.5 0.5 Recent Labs Component Name 03/09/22 1312 LIPASE 35 Recent Labs Component Name 08/20/22 0250 TSH 4.654 Coagulation: Recent Labs Component Name 09/29/23 1719 08/27/22 0439 08/26/22 0330 PT 12.2 11.8* 12.9 INR 0.9 0.9 1.0 Cardiac markers: Recent Labs Component Name 08/22/22 0747 08/21/22 2340 08/21/22 1655 TROPONINI 0.037* 0.058* 0.054* ABG: Recent Labs Component Name 08/22/22 1801 08/22/22 0816 08/21/22 1930 [id number] 16* 16* 17* IMAGING: CT CHEST ABDOMEN PELVIS W CONT Result Date: 09/29/2023 Impression: 1.New age-indeterminate fractures of the right second, third, fourth anterior ribs, favored to be acute/subacute. Correlation with point tenderness. 2.Otherwise no evidence of osseous or visceral injury in the chest, abdomen or pelvis. > Dictated by Heath Wu MD, (radiologyresident). I, Juwan Aceves have personally reviewed and interpreted this examination/study. > Interpreting Provider: Juwan Aceves on 09/29/2023 7:[address] HEAD WO CONTRAST Result Date: 09/29/2023 IMPRESSION: 1. Small acute extra-axial hematoma along the right frontal convexity measuring up to 8to 9 mm in thickness with minimal mass effect on the adjacent sulci. No midline shift. No new foci of hemorrhage. 2. No evidence of acute fracture in the cervical, thoracic, or lumbar spine. Multilevel degenerative changes as described above. > Interpreting Provider: Rosa Davis MD on 09/29/2023 6:[address] CERVICAL SPINE WO CONTRAST Result Date: 09/29/2023 IMPRESSION: 1. Small acute extra-axial hematoma along the right frontal convexity measuring up to 8to 9 mm in thickness with minimal mass effect on the adjacent sulci. No midline shift. No new foci of hemorrhage. 2. No evidence of acute fracture in the cervical, thoracic, or lumbar spine. Multilevel degenerative changes as described above. > Interpreting Provider: Rosa Davis MD on 09/29/2023 6:[address] THORACIC SPINE WO CONTRAST Result Date: 09/29/2023 IMPRESSION: 1. Small acute extra-axial hematoma along the right frontal convexity measuring up to 8to 9 mm in thickness with minimal mass effect on the adjacent sulci. No midline shift. No new foci of hemorrhage. 2. No evidence of acute fracture in the cervical, thoracic, or lumbar spine. Multilevel degenerative changes as described above. > Interpreting Provider: Rosa Davis MD on 09/29/2023 6:[address] LUMBAR SPINE WO CONTRAST Result Date: 09/29/2023 IMPRESSION: 1. Small acute extra-axial hematoma along the right frontal convexity measuring up to 8to 9 mm in thickness with minimal mass effect on the adjacent sulci. No midline shift. No new foci of hemorrhage. 2. No evidence of acute fracture in the cervical, thoracic, or lumbar spine. Multilevel degenerative changes as described above. > Interpreting Provider: Rosa Davis MD on 09/29/2023 6:11 PM ASSESSMENT: Kirsty Rea is a 82 year old female w/ PMH significant for ESRD who presents for maintenance hemodialysis. PLAN: # ESRD w/ HD TTS See top of the note for HD information. - Access: LUE AVF - Volume Status: [facility] - HD 10/01 (1L) - strict intake and output - renally dose medications - plan for hemodialysis TTS # Hypertension - current regimen: Amlodipine 10 pm, labetalol 300 BID, losartan 100 QD. Please continue. - Continue to monitor post dialysis. # Anemia - Hgb - 7.7 - may be secondary to anemia of chronic disease secondary to ESRD - Iron panel 09/30/2023: normal. - transfuse pRBCs for Hgb<7 # Secondary Hyperparathyroidism - PTH 08/17/2022: 346.2 - Ca - 10 - Albumin - 2.4 - PO4 - 3.5 - Repeat iCal, vit D and PTH orered. Patient will be seen and discussed with attending physician. CHRIS Henderson MD 09/30/2023 12:47 PM OSOFT BI CONSULTANT Associated attestation - Chris Fernandez MD - 10/03/2023 8:38 PM MICROSOFT BI CONSULTANT I have seen and examined the patient with house-staff on rounds at 11:10 AM. I agree with the house-staff note with the additions/modificiations listed below. Ms. Rea is a 82 year old female w/ PMH significant for ESRD w/ HD TTS via LUE AVG, HTN nephropathy, who presented to the hospital after LGF during her HD session. CT showed small SDH. No surgery indicated. Patient has been receiving HD as per her regular schedule. Plan for HD tomorrow. * Kaley Pennington OT - 10/03/2023 11:25 AM CST [facility] Physical Medicine and Rehabilitation Occupational Therapy Progress Note Patient: Kirsty Rea Med Record Number: [id number] Date of : 1940 Age: [age] year old PPE worn by staff: gloves;mask - procedural Tech: N/A Recommendations: OT Discharge Recommendations: Patient would benefit from multidisciplinary therapy Nurse and Physical Therapy contacted regarding patient status and/or discharge plan. Activity Level: up ad mushtaq PRECAUTIONS: Weight Bearing Status: (No restrictions) SUBJECTIVE: Subjective: Pt is agreeable to participate. Pt is [place]. Pain Assessment: Pain Location #1 Pain Scale/Observation: Numeric (0-10) Pain Rating Score #1: 0 OBJECTIVE: At start of therapy session, patient found in bed and with bed alarm on General Appearance: 82F in NAD LDA: IV's: Peripheral line Vitals: No s/s of distress, SOB, dizziness. Mental Status/Cognition: Level of Consciousness-Adult: Alert Orientation Level: Disoriented to Situation;Oriented to Place;Oriented to Person;Oriented to Time (Pt requires cues for ) Cognition: Processing-delayed;Follows one step commands;Attention/concentration-decreased;Judgement-decreased;Safety awareness-decreased Mobility: a gait belt and non-slip socks were used for all out of bed activity this date. Bed Mobility: Supine to Sit: Minimal Assistance (+ increased time) with HOB in semi-fowlers position Transfers: Sit to Stand: Moderate Assistance Stand to Sit: Moderate Assistance Bed to Chair: Moderate Assistance to Right Balance: Sitting - Static: Good - Sitting - Dynamic: Fair + Standing - Static: Fair - Standing - Dynamic: Poor + Activities of Daily Living: Feeding: Set-up - sitting in recliner Upper Body Dressing: Maximal Assistance - fasten tie gown at EOB Splint Issued/Checked: none ACTIVITY TOLERANCE: Patient's activity tolerance: fair. Modified Elizabeth: Current Modified Crosby Score: 4 AM-PAC 6 Clicks Daily Activity Raw Score:: 14 TREATMENT/INTERVENTIONS: ADL training Adaptive equipment training Cognitive retraining Functional transfer training Endurance training Bed mobility Energy conservation Safety awareness EDUCATION: While performing OT, Patient was instructed in:functional mobility training, self-care training, cognitive retraining, energy conservation, safety awareness/fall precautions , discharge planning, use of call light Presented to patient who demonstrates Fair understanding of instructions given. INFORMED CONSENT TO TREATMENT: Plan of care including recommended therapy, goals and frequency, discussed with patient who understands and agrees to proceed. ASSESSMENT: Functional performance limited due to: limited activities of daily living, pain, decreased functional mobility, decreased functional balance, decreased cognition , decreased safety awareness, upper extremity functional impairments, decreased endurance and activity tolerance and decreased coordination. Patient continues to benefit from skilled Occupational Therapy to achieve the following functional goals. Equipment Issued: none. Short Term Goals: Goal Formation With patient Patient will perform grooming standing at sink and independently Patient will perform lower extremity dressing independently Patient will perform toileting independently Patient will transfer to standard toilet independently [facility] Goal(s): Patient to discharge to appropriate next level of inpatient care Plan: Patient continues to benefit from skilled therapy services., Continue with goals as established. If patient is discharged from the facility, this note serves as a discharge summary if further occupational therapy visits did not occur. Refer to filed flowsheet for further details. Following therapy session, patient left in patient bedside chair, with chair alarm on, with call light within reach, with RN in room, with RN, Elsy aware. OSOFT BI CONSULTANT * Virginia Robledo RN - 10/03/2023 10:40 AM CST Care Coordination Initial Assessment Anticipated Discharge Date: 10/05/23 Transportation at Discharge: Ambulance Anticipated level of care at discharge: Snf - Skilled Facility Anticipated level of care provider: [facility] Prior to admission level of care: Snf - Skilled Facility Prior to admit provider: None Patient Goals: To return to facility Plans: No discharge needs identified at this time. Consult Case Management if discharge planning needs arise. Comments: Spoke with pt and she was able to answer a few questions, contacted daughter by phone to answer others. Pt resides at [facility], is essentially bed/WC bound, unable to ambulate. Daughter had questions for Medical Team, requested MD to give Agnes a call. [facility] will return to [facility]. Lives with: Other (Comment) Physical Limitations: Wheelchair Bound Requires Assistance With: Mobility;Dressing;Toileting;Hygiene;Transfers;Housekeeping;Meal Preparatio n;Medication Administration;Shopping Preferred Pharmacy: [facility] [id number] [facility] [address] [facility] [id number] [address] [facility] [id number] READMISSION RISK SCORE is 18 at 1:11 PM 10/03/2023. Met with patient and daughter Family Support (name and phone): Extended Emergency Contact Information Primary Emergency Contact: Agnes Monroy Mobile Relation: Daughter Secondary Emergency Contact: Stacy Sheppard Mobile Relation: Daughter Patient or technology sales representative requests care coordination reach out to family or caregiver listed above regarding discharge planning and at time of discharge? Yes Patient/Family provided with list of resources? Unknown Preferred Provider / High Quality Network List given?: Unknown Reason for provider choice: Pt. choice - previous provider Equipment at Home: Wheelchair-Standard Terrazzo Worker Apprentice Referral: Yes Will continue to follow. For any questions or needs please contact: Automobile Rental Representative Name/Phone number: Virginia Robledo RN OSOFT BI CONSULTANT * Elsy Cabrera RN - 10/03/2023 9:36 AM CST Problem: Fluid and Electrolyte Imbalance Goal: Fluid and electrolyte balance are achieved/maintained Outcome: Progressing Problem: Infection Goal: Signs and symptoms of infections are decreased or avoided Outcome: Progressing Problem: Pain/Discomfort Goal: Patient exhibits reduced pain/discomfort as evidenced by pain scores Outcome: Progressing OSOFT BI CONSULTANT * Zuleima Evangelista RN - 10/03/2023 8:25 AM CST Rapid [place] [address] Patient: Kirsty Rea : 1940 Location: [address] [place] [address] Rapid Response Team completed morning rounds on this patient. Resting quietly in bed, respirations equal and unlabored. VSS. No concerns brought forth by staff or patient. Will continue to follow Vital Signs: Patient Vitals for the past 6 hrs: Temp Pulse BP BP Method 10/03/23 0742 98.6 ??F (37 ??C) 89 151/71 -- 10/03/23 0512 97.8 ??F (36.6 ??C) 92 160/68 Automatic Zuleima Evangelista RN Rapid Response Nurse [phone] OSOFT BI CONSULTANT * Leland García - 10/03/2023 7:11 AM CST [facility] INTERNAL MEDICINE PROGRESS NOTE Patient: Kirsty Rea Sex: female Age: [age] year old Date of : 1940 Date of Admission: 09/29/2023 Date: 10/03/2023 LOS: 2 SUBJECTIVE Interval History: LAW ENFORCEMENT DIRECTOR paged for worsening SOB overnight around 1800. She was sitting up in bed with fast labored breathing with intercostal retractions and BP elevated to 214/68. Hydralazine was given, CXR obtained (unremarkable per radiology), and placed on oxygen. Night team added SQ heparin and increased amlo to 10 mg from 5 mg. Denies CP, palpitations, abd pain, n/v this morning but appears fatigued. Hospital Course: Mrs. 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 Unsure if accompanied by LOC. Pertinent history includes increased falls and AMS since her CVA in 07/2022. At the OSH, CT head revealed right frontal convexity SDH. She was then transferred to [facility] (elevated BP most likely 2/2 to volume overload +/- uncontrolled HTN. and GCS 14) for further evaluation by trauma and NSGY for SDH. No acute indications for surgicalintervention at that time. Labs are c/w ESRD patient. CT head with small SDH, CT chest showed age indeterminate ribs 2-4 fractures but was denying pain or pain with inspiration. She is on labetalol 30 0mg bid losartan 50mg qd and amlodipine 5mg added today but was increased to losartan 100 mg and amlodipine 10 mg qhs given her elevated BPs throughout her hospitalization. Nephrology was consulted for dialysis and currently following for HD sessions. Orthostatics were positive, TTE is still pending. Given her concerning symptoms and radiographic imaging for possible NPH, she will get neuro f/u for NPH workup. Of note, the patient required rapid response on 10/02/23 which resolved with oxygen, prn hyrdralazine x2, and CXR which was unremarkable. OBJECTIVE Vital Signs: Vitals: 10/02/23 2326 10/03/23 0019 10/03/23 0512 10/03/23 0742 BP: (!) 193/70 159/99 160/68 151/71 Pulse: 89 89 92 89 Resp: Temp: 98.6 ??F (37 ??C) 97.8 ??F (36.6 ??C) 98.6 ??F (37 ??C) SpO2: 93% 95% 95% Weight: Height: Temp Min: 97.7 ??F (36.5 ??C) Max: 99.5 ??F (37.5 ??C), Pulse Min: 60 Max: 106, Resp Min: 9 Max: 24, BP Min: 119/47 Max: 216/70 Intake & Output: In: 540 [P.O.:540] Out: - Physical Exam: Physical Exam Constitutional: General: She is not in acute distress. Comments: No acute distress but appears fatigued Cardiovascular: Rate and Rhythm: Normal rate and regular rhythm. Heart sounds: No murmur heard. No gallop. Pulmonary: Effort: Pulmonary effort is normal. No respiratory distress. Breath sounds: Normal breath sounds. Comments: No respiratory distress but appears to be breathing heavier with mouth open. No retractions or tracheal tugging and denies respiratory distress/pain. Abdominal: General: Abdomen is flat. There is no distension. Palpations: There is no mass. Tenderness: There is no abdominal tenderness. Musculoskeletal: Right lower leg: No edema. Left lower leg: No edema. Skin: General: Skin is warm. Coloration: Skin is not jaundiced. Neurological: General: No focal deficit present. Mental Status: She is alert and oriented to person, place, and time. Comments: Speaks slowly but is cooperative and understands situation. Oriented to person, place (down to the exact street names of the hospital), and time. Current Medications: Scheduled: ??? 0.9% NaCl 3 mL Intracatheter q8h ??? amLODIPine 10 mg Oral AT BEDTIME ??? busPIRone 5 mg Oral TID ? ? epoetin (Epogen,Procrit) injection 4,000 Units Intravenous DIALYSIS TUE, MARLIN, & SAT ??? escitalopram 5 mg Oral QDAY ??? heparin 5,000 Units Subcutaneous q8h ??? labetalol 300 mg Oral BID ??? [START ON 10/04/2023] losartan 100 mg Oral QDAY ??? memantine 5 mg Oral BID Continuous: PRN: ??? SALINE LOCK, INSERT AND MAINTAIN AND 0.9% NaCl AND 0.9% NaCl ??? acetaminophen ??? hydrALAZINE ??? polyethylene glycol 3350 ??? senna-docusate Significant Lab Results: CBC: Recent Labs Component Name 10/03/23 0516 10/02/23 0733 10/01/23 0536 WBC 11.4* 7.2 9.6 HGB 8.6* 8.8* 8.5* HCT 27.9* 27.4* 27.0* PLTCOUNT 275 229 237 BMP: Recent Labs Component Name 10/03/23 0516 10/02/23 0733 10/01/23 0536 NA 141 139 139 POTASSIUM 3.8 3.4* 4.5 CL 104 99 100 CO2 29 28 26 BUN 25 11 15 CREATININE 4.24* 2.38* 2.52* EGFR 10* 20* 19* GLUCOSE 114 93 86 CALCIUM 10.1 10.0 10.0 ANIONGAP 8 12 13 Recent Labs Component Name 10/03/23 0516 10/02/23 0733 10/01/23 0536 PHOS 3.7 3.3 2.3* MAGNESIUM 1.8 1.8 1.9 LFTs: Recent Labs Component Name 10/03/23 0516 10/02/23 0733 10/01/23 0536 09/29/23 1719 03/09/22 1312 TPROT - - - - 5.4* ALBUMIN - - - - 3.6 AST 17 19 19 - 14 ALT 15 13 13 - 12 ALKPHOS 136 128 122 - 72 TBIL - - - - 0.3 LIPASE - - - - 35 - = values in this interval not displayed. Coags: Recent Labs Component Name 09/29/23 1719 08/27/22 0439 08/26/22 0330 PT 12.2 11.8* 12.9 INR 0.9 0.9 1.0 ENDO: Recent Labs Component Name 08/20/22 0250 TSH 4.654 Recent Labs Component Name 08/16/22 0044 HGBA1C 5.4 Cardiac: Recent Labs Component Name 08/22/22 0747 08/21/22 2340 08/21/22 1655 TROPONINI 0.037* 0.058* 0.054* ABGs: Recent Labs Component Name 08/22/22 1801 08/22/22 0816 08/21/22 1930 PH 7.29* 7.31* 7.34* PCO2 33* 32* 31* PO2 66* 93 312* FIO2 40.0 26.0 100.0 UA: Recent Labs Component Name 08/19/22 1300 COLORU Yellow CLARITYU Slt Cloudy* LABSPEC 1.011 PROTEINTO 146 163 KETONES Negative BILIRUBINUR Negative BLOODU Negative NITRITE Negative LEUKOCYTE 2+* WBCU 11-20* URINEBACT Trace* Microbiology: COVID-19 PCR: Not detected Influenza A: Not detected Influenza B: Not detected Imaging & Studies: CT CHEST ABDOMEN PELVIS W CONT Result Date: 09/29/2023 Impression: 1.New age-indeterminate fractures of the right second, third, fourth anterior ribs, favored to be acute/subacute. Correlation with point tenderness. 2.Otherwise no evidence of osseous or visceral injury in the chest, abdomen or pelvis. > Dictated by Heath Wu MD, (radiologyresident). I, Juwan Aceves have personally reviewed and interpreted this examination/study. > Interpreting Provider: Juwan Aceves on 09/29/2023 7:[address] HEAD WO CONTRAST Result Date: 09/29/2023 IMPRESSION: 1. Small acute extra-axial hematoma along the right frontal convexity measuring up to 8to 9 mm in thickness with minimal mass effect on the adjacent sulci. No midline shift. No new foci of hemorrhage. 2. No evidence of acute fracture in the cervical, thoracic, or lumbar spine. Multilevel degenerative changes as described above. > Interpreting Provider: Rosa Davis MD on 09/29/2023 6:[address] CERVICAL SPINE WO CONTRAST Result Date: 09/29/2023 IMPRESSION: 1. Small acute extra-axial hematoma along the right frontal convexity measuring up to 8to 9 mm in thickness with minimal mass effect on the adjacent sulci. No midline shift. No new foci of hemorrhage. 2. No evidence of acute fracture in the cervical, thoracic, or lumbar spine. Multilevel degenerative changes as described above. > Interpreting Provider: Rosa Davis MD on 09/29/2023 6:[address] THORACIC SPINE WO CONTRAST Result Date: 09/29/2023 IMPRESSION: 1. Small acute extra-axial hematoma along the right frontal convexity measuring up to 8to 9 mm in thickness with minimal mass effect on the adjacent sulci. No midline shift. No new foci of hemorrhage. 2. No evidence of acute fracture in the cervical, thoracic, or lumbar spine. Multilevel degenerative changes as described above. > Interpreting Provider: Rosa Davis MD on 09/29/2023 6:[address] LUMBAR SPINE WO CONTRAST Result Date: 09/29/2023 IMPRESSION: 1. Small acute extra-axial hematoma along the right frontal convexity measuring up to 8to 9 mm in thickness with minimal mass effect on the adjacent sulci. No midline shift. No new foci of hemorrhage. 2. No evidence of acute fracture in the cervical, thoracic, or lumbar spine. Multilevel degenerative changes as described above. > Interpreting Provider: Rosa Davis MD on 09/29/2023 6:11 PM ASSESSMENT & PLAN ESRD (end stage renal disease) (CMS/HCC) (POA: Unknown) Syncope and collapse (POA: Unknown) Subdural hematoma (CMS/HCC) (POA: Unknown) Fall, initial encounter (POA: Unknown) ASSESSMENT: Mrs. Rea is an 82 year old female with PMHx of ESRD on HD TTS via LUE AVG, Dementia,Gout, HTN, HLD, and h/o CVA in 07/2023 who is hospitalized following an unwitnessed fall likely orthostatic (vs syncope vs hematoma vs cardiogenic) with steady improvement in mental status and respiration on RA. Patient would benefit with further workup for the etiology of her fall and PT/OT evaluation. PLAN: #Unwitnessed ground level fall #R-sided Subdural hematoma #?Syncope of unclear etiology (orthostatic vs cardio vs neuro)? - Likely mechanical fall in setting of repeated falls recently - Neurosurgery consulted, no neurosurgical interventions recommended - Recommending NPH workup PLAN: - Outpatient follow up with neurology for normal pressure hydrocephalus work up - Orthostatics positive, can't give fluids considering HTN and volume overload w ESRD -PT/OT recs multidisciplinary therapy/SNF - 10/02/23: Rapid response required for SOB/resp distress; now stable Continue to monitor her reactive leukocytosis - F/u TTE to rule out cardiac syncope and update pt's daughter - Can continue telemetry while in hospital; will need to review telemetry ?#Right 2nd-4th rib fractures - Acute vs subacute - No point tenderness on exam and no pleuritic chest pain - Patient pulling 250 mL on IS, but denies pain on inspiration - Satting well on RA PLAN: - Continue pulmonary toilet and incentive spirometer - CTM and maintain SpO2 > 90% - Pain control with tylenol as needed ?? #HTN - Continue to monitor post dialysis - Current regimen: labetalol 300 mg BID, losartan 100 mg qd, amlodipine 10 mg qhs PLAN: - Increased losartan to 100 mg qd on 10/03/23 - Increased amlodipine to 10 mg qhs from 5 mg on 10/03/23 ?? #ESRD w/ HD??TTS #Secondary Hyperparathyroidism #Anemia (likely ACD) - Nephrology following; appreciate recs - Likely ACD 2/2 ESRD (Ferritin 2025 on 09/30/23) -??Iron panel 09/30/2023 negative PLAN: - Strict I/Os - Transfuse pRBCs for Hgb<7 - Renally dose medications - Nephro on board; iCal, vit D, PTH ordered. - Will continue dialysis as scheduled (next session is on 10/04) #Oliguria - Uses purewick; urinates once per day large volume per nurse; denies dysuria or hematuria PLAN: - Low threshold for UTI evaluation given patient's h/o of known recurrent UTI and AMS this admission. - Leukocytosis (10/03/23 7.2>11.4) d/t reactive leukocytosis vs infectious etiology; afebrile andVSS. ?? #Dementia - Continue home memantine 5 mg BID - Outpatient neuro f/u for NPH evaluation ?? #Depression #Anxiety - Continue home Escitalopram 5mg daily - Continue home Buspirone 5mg TID - Stable; denies need for pastoral care or SI/HI at this time Code: Full Diet: Renal Electrolytes: Replete PRN PPx: Heparin and SCDs Access: 2PIV and HD line Dispo: OT/PT recs d/c to [facility] The above assessment and plan will be discussed with the attending. This note is not final until attested by attending physician. eLland García MS3 [facility] 10/03/2023 4:07 PM OSOFT BI CONSULTANT Associated attestation - Rogelio Benitez MD - 10/03/2023 6:30 PM MICROSOFT BI CONSULTANT I have seen and examined the patient with the resident and I agree with the findings and plan of care as documented by the resident. In addition: pending TTE for syncope w/u Date of Service: 10/03/2023 Rogelio Benitez MD Hospitalist, Digital Production Operatoravionics systems integration specialist * Steffany Baldwin RN - 10/03/2023 6:15 AM CST Problem: Mobility Goal: STG - Patient will ambulate Outcome: Progressing Problem: Fluid and Electrolyte Imbalance Goal: Fluid and electrolyte balance are achieved/maintained Outcome: Progressing Problem: Infection Goal: Signs and symptoms of infections are decreased or avoided Outcome: Progressing Problem: Pain/Discomfort Goal: Patient exhibits reduced pain/discomfort as evidenced by pain scores Outcome: Progressing Goal: Patient uses pharmacological and non-pharmacological pain management strategies. Outcome: Progressing Goal: Patient verbalizes acceptable level of pain relief and ability to engage in desired activity. Outcome: Progressing Problem: Fall Risk Goal: Fall risk and fall related injury risk are minimized (interventions related to the fall risk can be found in the flowsheet documentation) Outcome: Progressing OSOFT BI CONSULTANT * Jeannine Calle RN - 10/03/2023 6:07 AM CST Rapid [place] [address] Patient: Kirsty Rea : 1940 Location: [address] [place] [address] Rapid Response Team completed nightly rounding, spoke with staff and rn discharge, No acute concerns brought forward. Patient found with even and unlabored respirations, VSS as charted. No further Rapid Response Nursing needs at this time. Vital Signs: Patient Vitals for the past 6 hrs: Temp Pulse BP BP Method 10/03/23 0512 97.8 ??F (36.6 ??C) 92 160/68 Automatic 10/03/23 0019 -- 89 159/99 Automatic Jeannine Calle RN Rapid Response Nurse [phone] OSOFT BI CONSULTANT * Reji Hu MD - 10/02/2023 6:54 PM CST Plan of Care Called by rapid team after patient became acutely agitated and was found to be hypertensive and hadtachypnea with new oxygen requirement. Patient placed on 4L. PRN IV hydral given with improvement in BP. Additionally administed another 5mg PO amlodipine and increased morning dose to 10 mg. Patientslowly weaned down to room air. Stat x-ray performed to evaluate for pulmonary edema. Discussed with radiology who noted no new/concerning intrapulmonary process. Patient gradually became more calm and breathing less labored. Will continue to monitor. Additionally, added DVT ppx w/ SQ heparin. Reji Hu MD Internal Medicine, PGY2 Pager OSOFT BI CONSULTANT * Kevin Otero RN - 10/02/2023 5:59 PM CST 1800 - Charge nurse was informed about SOB 1805 - Respiratory, then Rapid RN arrived, and . Meds was ordered and given as well as stat CXR. 02 started at 6 L/m due SOB and patient gets Agitated with the care team especially with RRN and MDwearing green dress but 02 was slowly weaned down to RA. At this moment patient is resting comfortably. Out going Rapid RN said that to inform incoming Rapid RN to check the patient as well as informed the incoming RN to check and collaborate with Rapid RN if situation gets worst. OSOFT BI CONSULTANT * Kevin Otero RN - 10/02/2023 5:44 PM CST Assessment of patient???s baseline is established at the beginning of the shift in flowsheets. Unexpected findings and/or deviations from baseline are captured in flowsheets. Frequent safety checks and comfort rounds provided. Orders and/or nursing care completed as indicated. Patient monitored forresponse to interventions and treatments as documented in flowsheets. Pt. is currently on 4 L/m NC due to SOB while eating, A&O to self and place, stayed on bed today, VS stable, and cooperative with her treatment. At this time, pt is resting in her bed, no c/o pain but having episodes of SOB. Bed in low and locked position. Call light within reach. WCTM. Problem: Mobility Goal: STG - Patient will ambulate Outcome: Progressing Problem: Hemodynamic Status/Cardiac Output Goal: Patient has stable vital signs and fluid balance Outcome: Progressing Problem: Fluid and Electrolyte Imbalance Goal: Fluid and electrolyte balance are achieved/maintained Outcome: Progressing Problem: Infection Goal: Signs and symptoms of infections are decreased or avoided Outcome: Progressing Problem: Pain/Discomfort Goal: Patient exhibits reduced pain/discomfort as evidenced by pain scores Outcome: Progressing Goal: Patient uses pharmacological and non-pharmacological pain management strategies. Outcome: Progressing Goal: Patient verbalizes acceptable level of pain relief and ability to engage in desired activity. Outcome: Progressing Problem: Fall Risk Goal: Fall risk and fall related injury risk are minimized (interventions related to the fall risk can be found in the flowsheet documentation) Outcome: Progressing OSOFT BI CONSULTANT * Rachell Gilbert DO - 10/02/2023 3:25 PM CST [facility] Department of Nephrology Progress Note Date of Admission: 09/29/2023 Length of Stay: 1 Date of Service: 10/02/23 Patient Name: Kirsty Rea (82 year old female) Room Number: 836/836a PCP: NINA Victoria ([phone]) Chief Complaint Patient presents with ??? LOSS OF CONSCIOUSNESS PT BIBEMS for syncopal episode at Dialysis today. EMS reports epidural hematoma on CT from OSH. Pt lives at [facility] in [place] [id number] at baseline. 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 The patient was evaluated by trauma and NSGY for SDH and there were no indicaitonof any surgical intervention. To note patient BP was elevated on admission most likely 2.2 to volume overload +/- uncontrolled HTN. Nephrology consulted for ESRD management. Interval History: - No acute changes overnight night. Pending TTE Scheduled Medications: ??? 0.9% NaCl 3 mL Intracatheter q8h ??? [START ON 10/03/2023] amLODIPine 5 mg Oral QDAY ??? busPIRone 5 mg Oral TID ? ? epoetin (Epogen,Procrit) injection 4,000 Units Intravenous DIALYSIS TUE, MARLIN, & SAT ??? escitalopram 5 mg Oral QDAY ??? labetalol 300 mg Oral BID ??? losartan 50 mg Oral QDAY ??? memantine 5 mg Oral BID PRN Medications: ??? SALINE LOCK, INSERT AND MAINTAIN AND 0.9% NaCl AND 0.9% NaCl ??? acetaminophen ??? hydrALAZINE ??? polyethylene glycol 3350 ??? senna-docusate Infusions: OBJECTIVE: Vital Signs: Temp: [98 ??F (36.7 ??C)-98.3 ??F (36.8 ??C)] 98.3 ??F (36.8 ??C) Pulse: [72-84] 74 Resp: [16-20] 20 BP: (119-216)/(47-95) 137/64 Intake/Output: Intake/Output Summary (Last 24 hours) at 10/02/2023 1525 Last data filed at 10/02/2023 1200 Gross per 24 hour Intake 480 ml Output -- Net 480 ml Physical Exam Constitutional: General: She is in acute distress. HENT: Head: Normocephalic and atraumatic. Eyes: General: No scleral icterus. Pulmonary: Effort: Pulmonary effort is normal. No respiratory distress. Breath sounds: Normal breath sounds. Musculoskeletal: Right lower leg: No edema. Left lower leg: No edema. Neurological: General: No focal deficit present. Comments: Lethargic Access: LUE AVF Labs: CBC: Recent Labs Component Name 10/02/23 0733 10/01/23 0536 09/30/23 0541 WBC 7.2 9.6 7.7 RBC 3.02* 2.91* 2.62* HGB 8.8* 8.5* 7.7* HCT 27.4* 27.0* 24.6* BMP: Recent Labs Component Name 10/02/23 0733 10/01/23 0536 09/30/23 0541 NA 139 139 137 CL 99 100 96* CO2 28 26 29 BUN 11 15 25 CREATININE 2.38* 2.52* 4.52* PHOS 3.3 2.3* 3.5 CALCIUM 10.0 10.0 10.1 LFTs: Recent Labs Component Name 10/02/23 0733 10/01/23 0536 09/30/23 0541 AST 19 19 14 ALT 13 13 9 ALKPHOS 128 122 113 TBILI 0.5 0.5 0.5 ALB 2.5* 2.5* 2.4* ABG: Recent Labs Component Name 08/22/22 1801 08/22/22 0816 08/21/22 1930 [id number] 16* 16* 17* ASSESSMENT: Kirsty Rea is a 82 year old female w/ PMH significant for ESRD who presents for maintenance hemodialysis. ?? PLAN: ?? ESRD w/ HD TTS - Access: LUE AVF - Volume Status: Euvolumic - strict intake and output - renally dose medications --- Plan for iHD 10/04 ?? Hypertension - BP 119/47 - Inpt regimen: Labetalol 300mg BID, losartan 50mg, amlodipine 5mg --- BP dropped significantly with amlodipine this morning. Recommend switching amlodipine 5mg to nightly regimen starting 10/03 ?? Anemia - Hgb - 8.8 - may be secondary to anemia of chronic disease secondary to ESRD - Ferritin 2025, Transferrin Sat - 48% --- EPO 4k with iHD --- transfuse pRBCs for Hgb<7 ?? Secondary Hyperparathyroidism - PTH 08/17/2022: 346.2 - Ca - 10 - Albumin - 2.4 - PO4 - 2.3 Patient seen and discussed with attending physician, Dr. Weston. Rachell Gilbert DO Nephrology Fellow, PGY-4 10/02/2023 3:25 PM OSOFT BI CONSULTANT Associated attestation - Howard Weston MD - 10/02/2023 6:45 PM MICROSOFT BI CONSULTANT Patient was seen and examined with house-staff. I concur with findings, assessment, and plan. The note has been edited to reflect my assessment. * Yolanda Johnson MD - 10/02/2023 2:30 PM CST [facility] INTERNAL MEDICINE PROGRESS NOTE Patient: Kirsty Rea Sex: female Age: [age] year old Date of : 1940 Date of Admission: 09/29/2023 Date: 10/02/2023 LOS: 1 SUBJECTIVE Interval History: Was A&Ox1 this morning (person). Had hemodialysis session yesterday. BP still elevated after upto 200s systolic. On labetalol 300mg bid and Nephro following, patient is on losartan 50mg daily and labetalol 300mg BID and losartan 50mg qd, added amlodipine 5mg qd. Last bowel movement 3 days ago,started on senna and miralax as needed. Orthostatics positive, can't give fluids as HTN ESRD and unk nown heart status. Among syncope workup,TTE pending. Discussed with family Stacy ), unsure if patient had LOC. Patient has been having many falls recently and is more demented. Since last hip injury about 2 months ago, was placed at [facility].Daughter Stacy would like an update on Tuesday regarding TTE. 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 She has had increased frequency in falls and delusional thinking since her CVA in 07/2023. Per pt's daughter, pt was at dialysis when treatment team noticed she was altered and sent her to OSH where CT head revealed right frontal convexity SDH. Decision was made to transfer pt to [facility] for further workup and neurosurgical evaluation. The patient was evaluated by trauma and NSGY for SDH and there were no indicaiton of any surgical intervention. The patient's labs are consistent with ESRD patient. CT head with small SDH, CT chest showed age indeterminate r ibs 2-4 fractures. Patient BP was elevated on admission most likely 2/2 to volume overload +/- uncontrolled HTN. On labetalol 300mg bid losartan 50mg qd and amlodipine 5mg added today. Nephrology wasconsulted for dialysis. Syncope workup done, orthostatics positive,TTE pending. Symptoms and radiographic imaging were concerning for possible NPH. She will require follow up with neurology for NPH workup. OBJECTIVE Vital Signs: Vitals: 10/02/23 0805 10/02/23 0808 10/02/23 0950 10/02/23 1200 BP: (!) 216/70 (!) 196/74 119/47 137/64 Pulse: 83 80 72 74 Resp: 20 20 Temp: 98.2 ??F (36.8 ??C) 98.3 ??F (36.8 ??C) SpO2: 96% 96% Weight: Height: Temp Min: 97.7 ??F (36.5 ??C) Max: 99.5 ??F (37.5 ??C), Pulse Min: 60 Max: 96, Resp Min: 9 Max: 24, BP Min: 119/47 Max: 216/70 Intake & Output: In: 360 [P.O.:360] Out: 1000 Physical Exam: Physical Exam Constitutional: General: She is not in acute distress. Appearance: She is not ill-appearing. Cardiovascular: Rate and Rhythm: Normal rate and regular rhythm. Pulses: Normal pulses. Heart sounds: Normal heart sounds. Pulmonary: Effort: Pulmonary effort is normal. Breath sounds: Normal breath sounds. No wheezing or rhonchi. Abdominal: General: Abdomen is flat. Bowel sounds are normal. There is no distension. Palpations: Abdomen is soft. Tenderness: There is no abdominal tenderness. Musculoskeletal: Right lower leg: No edema. Left lower leg: No edema. Neurological: General: No focal deficit present. Mental Status: She is alert and oriented to person, place, and time. Mental status is at baseline. Current Medications: Scheduled: ??? 0.9% NaCl 3 mL Intracatheter q8h ??? [START ON 10/03/2023] amLODIPine 5 mg Oral QDAY ??? busPIRone 5 mg Oral TID ? ? epoetin (Epogen,Procrit) injection 4,000 Units Intravenous DIALYSIS TUE, MARLIN, & SAT ??? escitalopram 5 mg Oral QDAY ??? labetalol 300 mg Oral BID ??? losartan 50 mg Oral QDAY ??? memantine 5 mg Oral BID Continuous: PRN: ??? SALINE LOCK, INSERT AND MAINTAIN AND 0.9% NaCl AND 0.9% NaCl ??? acetaminophen ??? hydrALAZINE ??? polyethylene glycol 3350 ??? senna-docusate Significant Lab Results: Latest Reference Range & Units Most Recent Ferritin 13 - 204 ng/mL 2,026 (H) 09/30/23 05:41 Folate 7.0 - 31.4 ng/mL 12.3 09/01/22 07:06 Iron 40 - 150 ug/dL 77 09/30/23 05:41 TIBC Calculated 240 - 450 ug/dL 160 (L) 09/30/23 05:41 Transferrin 174 - 382 mg/dL 128 (L) 09/30/23 05:41 Transferrin Saturation % 16 - 50 % 48 09/30/23 05:41 (H): Data is abnormally high (L): Data is abnormally low Microbiology: Hep B negative Latest Reference Range & Units Most Recent Influenza A Rapid ANGELA Not Detected Not Detected 09/30/23 09:48 Influenza B ANGELA Rapid Not Detected Not Detected 09/30/23 09:48 SARS-CoV-2 Not detected Not detected 09/30/23 09:48 Imaging & Studies: CT chest/abdomen/pelvis (09/29/2023) 1.New age-indeterminate fractures of the right second, third, fourth anterior ribs, favored to be acute/subacute. Correlation with point tenderness. 2.Otherwise no evidence of osseous or visceral injury in the chest, abdomen or pelvis. CT head and spine (09/29/2023) 1. Small acute extra-axial hematoma along the right frontal convexity measuring up to 8 to 9 mm in thickness with minimal mass effect on the adjacent sulci. No midline shift. No new foci of hemorrhage. 2. No evidence of acute fracture in the cervical, thoracic, or lumbar spine. Multilevel degenerative changes as described above. ASSESSMENT & PLAN ESRD (end stage renal disease) (CMS/HCC) (POA: Unknown) Syncope and collapse (POA: Unknown) Subdural hematoma (CMS/HCC) (POA: Unknown) Fall, initial encounter (POA: Unknown) #Ground level fall #Subdural hematoma #Syncope? - likely mechanical fall in setting of repeated falls recently - Neurosurgery consulted, no neurosurgical interventions recommended - orthostatics positive, can't give fluids considering HTN and volume overload w ESRD PLAN - follow up on TTE to rule out cardiac syncope - keep on telemetry, follow up on it - may need event monitor on discharge - outpatient follow up with neurology for normal pressure hydrocephalus work up ??#Right 2-4 rib fractures - Acute vs subacute - No point tenderness on exam and no pleuritic chest pain - Patient pulling 250 mL on IS, but denies pain on inspiration - Satting well on RA Plan - Continue pulmonary toilet and incentive spirometer - CTM and maintain SpO2 > 90% - Pain control with tylenol as needed #HTN - on lisinopril 20mg BID, HCTZ 12.5mg daily, labetalol 100mg bid - started on home Labetalol 300mg bid and Losartan 50mg daily - Holding HCTZ PLAN - amlodipine 5mg added with hydralazine prn - Continue to monitor #ESRD w/ HD TTS #Secondary Hyperparathyroidism #Anemia - Nephrology following - dialysis on 10/01 - likely anemia of chronic disease 2/2 ESRD - Iron panel 09/30/2023 negative PLAN - strict intake and output - renally dose medications - will follow nephrology reccs - will continue dialysis as scheduled - transfuse pRBCs for Hgb<7 #Dementia - continue home Memantine #Depression #Anxiety - continue home Escitalopram 5mg daily - continue home Buspirone 5mg TID Code: Full Diet: Renal Electrolytes: Replete PRN PPx: SCDs Access: 2PIV and HD line Dispo: OT/PT advise multidisciplinary therapy, will look into SNF placement, can likely go back to [facility] The above assessment and plan will be discussed with the attending. This note is not final until attested by attending physician. Yolanda Johnson MD Internal Medicine Resident [facility] 10/02/2023 2:30 PM OSOFT BI CONSULTANT Associated attestation - Rogelio Benitez MD - 10/02/2023 6:27 PM MICROS[employer]FT BI CONSULTANT I have seen and examined the patient with the resident and I agree with the findings and plan of care as documented by the resident. Date of Service: 10/02/2023 Rogelio Benitez MD Hospitalist, Digital Production Operatoravionics systems integration specialist * Steffany Baldwin RN - 10/02/2023 6:38 AM CST Problem: Mobility Goal: STG - Patient will ambulate Outcome: Progressing Problem: Fluid and Electrolyte Imbalance Goal: Fluid and electrolyte balance are achieved/maintained Outcome: Progressing Problem: Infection Goal: Signs and symptoms of infections are decreased or avoided Outcome: Progressing Problem: Pain/Discomfort Goal: Patient exhibits reduced pain/discomfort as evidenced by pain scores Outcome: Progressing Goal: Patient uses pharmacological and non-pharmacological pain management strategies. Outcome: Progressing Goal: Patient verbalizes acceptable level of pain relief and ability to engage in desired activity. Outcome: Progressing Problem: Fall Risk Goal: Fall risk and fall related injury risk are minimized (interventions related to the fall risk can be found in the flowsheet documentation) Outcome: Progressing OSOFT BI CONSULTANT * Kevin Otero RN - 10/01/2023 5:51 PM CST Assessment of patient???s baseline is established at the beginning of the shift in flowsheets. Unexpected findings and/or deviations from baseline are captured in flowsheets. Frequent safety checks and comfort rounds provided. Orders and/or nursing care completed as indicated. Patient monitored forresponse to interventions and treatments as documented in flowsheets. Pt. is A&O to self and place, 2 L/m NC, Assits x1 but wheel chair bound, VS stable except for her elevated BP, and cooperative with her treatment. Patient had dialysis today and tolerated well. Orthostatic BP was done (refer to chart). At this time, pt is resting in her bed, no c/o pain or SOB.Bed in low and locked position. Call light within reach. WCTM. Problem: Mobility Goal: STG - Patient will ambulate Outcome: Progressing Problem: Hemodynamic Status/Cardiac Output Goal: Patient has stable vital signs and fluid balance Outcome: Progressing Problem: Fluid and Electrolyte Imbalance Goal: Fluid and electrolyte balance are achieved/maintained Outcome: Progressing Problem: Infection Goal: Signs and symptoms of infections are decreased or avoided Outcome: Progressing Problem: Pain/Discomfort Goal: Patient exhibits reduced pain/discomfort as evidenced by pain scores Outcome: Progressing Goal: Patient uses pharmacological and non-pharmacological pain management strategies. Outcome: Progressing Goal: Patient verbalizes acceptable level of pain relief and ability to engage in desired activity. Outcome: Progressing Problem: Fall Risk Goal: Fall risk and fall related injury risk are minimized (interventions related to the fall risk can be found in the flowsheet documentation) Outcome: Progressing OSOFT BI CONSULTANT * Marija Myles RN - 10/01/2023 10:31 AM CST Pt hd tx int. Pt tolerates hd tx well UF-1L Problem: Infection Goal: Signs and symptoms of infections are decreased or avoided Outcome: Progressing OSOFT BI CONSULTANT * Kevin Otero RN - 10/01/2023 9:27 AM CST 0917- called the dialysis, regarding her meds for HTN if it's to be given as her BP is a little bitelevated, he said just give labetalol and we can give her remaining meds here, if her BP is still elevated. 0925 - Patient left the room for dialyusis 1400 - Patient is back to her room. OSOFT BI CONSULTANT * Yolanda Johnson MD - 10/01/2023 7:46 AM CST [facility] INTERNAL MEDICINE PROGRESS NOTE Patient: Kirsty Rea Sex: female Age: [age] year old Date of : 1940 Date of Admission: 09/29/2023 Date: 10/01/2023 LOS: 0 SUBJECTIVE Interval History: Had hemodialysis session today. BP elevated before session, down to 160s-170s systolic after. Nephro following, patient is on losartan 50mg daily and labetalol 300mg BID, may add amlodipine if remains hypertensive. Last bowel movement 2 days ago, started on senna and miralax as needed. Syncope workup pending including TTE and orthostatics. Discussed with family Stacy ), unsure if patient had LOC. Patient has been having many falls recently and is more demented. Since last hip injury about 2 months ago, was placed at [facility] at [facility]. 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 She has had increased frequency in falls and delusional thinking since her CVA in 07/2023. Per pt's daughter, pt was at dialysis when treatment team noticed she was altered and sent her to OSH where CT head revealed right frontal convexity SDH. Decision was made to transfer pt to [facility] for further workup and neurosurgical evaluation. The patient was evaluated by trauma and NSGY for SDH and there were no indicaiton of any surgical intervention. The patientlabs are consistent with ESRD patient. CT head with small SDH, CT chest showed age indeterminate ribs 2-4 fractures. Patient BP was elevated on admission most likely 2/2 to volume overload +/- uncontrolled HTN. Nephrology was consulted for dialysis. Syncope workup including TTE, orthostatics still pending. Symptoms and radiographic imaging were concerning for possible NPH. She will require followup with neurology for NPH workup. OBJECTIVE Vital Signs: Vitals: 09/30/23 1934 09/30/23 2036 09/30/23 2309 10/01/23 0304 BP: 162/77 162/77 (!) 184/68 124/77 Pulse: 66 66 70 76 Resp: 16 18 16 Temp: 98.2 ??F (36.8 ??C) 99.5 ??F (37.5 ??C) SpO2: 100% 96% 100% Weight: Height: Temp Min: 97.7 ??F (36.5 ??C) Max: 99.5 ??F (37.5 ??C), Pulse Min: 60 Max: 82, Resp Min: 9 Max: 24,BP Min: 124/77 Max: 211/83 Intake & Output: In: - Out: 1000 Physical Exam: Physical Exam Constitutional: General: She is not in acute distress. Appearance: She is not ill-appearing. Cardiovascular: Rate and Rhythm: Normal rate and regular rhythm. Pulses: Normal pulses. Heart sounds: Normal heart sounds. Pulmonary: Effort: Pulmonary effort is normal. Breath sounds: Normal breath sounds. No wheezing or rhonchi. Abdominal: General: Abdomen is flat. Bowel sounds are normal. There is no distension. Palpations: Abdomen is soft. Tenderness: There is no abdominal tenderness. Musculoskeletal: Right lower leg: No edema. Left lower leg: No edema. Neurological: General: No focal deficit present. Mental Status: She is alert and oriented to person, place, and time. Mental status is at baseline. Current Medications: Scheduled: ??? 0.9% NaCl 3 mL Intracatheter q8h ??? busPIRone 5 mg Oral TID ? ? epoetin (Epogen,Procrit) injection 4,000 Units Intravenous DIALYSIS TUE, MARLIN, & SAT ??? escitalopram 5 mg Oral QDAY ??? iopamidol Intravenous Contrast - Once ??? labetalol 300 mg Oral BID ??? losartan 50 mg Oral QDAY ??? memantine 5 mg Oral BID Continuous: PRN: ??? SALINE LOCK, INSERT AND MAINTAIN AND 0.9% NaCl AND 0.9% NaCl ??? acetaminophen Significant Lab Results: Latest Reference Range & Units Most Recent Ferritin 13 - 204 ng/mL 2,026 (H) 09/30/23 05:41 Folate 7.0 - 31.4 ng/mL 12.3 09/01/22 07:06 Iron 40 - 150 ug/dL 77 09/30/23 05:41 TIBC Calculated 240 - 450 ug/dL 160 (L) 09/30/23 05:41 Transferrin 174 - 382 mg/dL 128 (L) 09/30/23 05:41 Transferrin Saturation % 16 - 50 % 48 09/30/23 05:41 (H): Data is abnormally high (L): Data is abnormally low Microbiology: Hep B negative Latest Reference Range & Units Most Recent Influenza A Rapid ANGELA Not Detected Not Detected 09/30/23 09:48 Influenza B ANGELA Rapid Not Detected Not Detected 09/30/23 09:48 SARS-CoV-2 Not detected Not detected 09/30/23 09:48 Imaging & Studies: CT chest/abdomen/pelvis (09/29/2023) 1.New age-indeterminate fractures of the right second, third, fourth anterior ribs, favored to be acute/subacute. Correlation with point tenderness. 2.Otherwise no evidence of osseous or visceral injury in the chest, abdomen or pelvis. CT head and spine (09/29/2023) 1. Small acute extra-axial hematoma along the right frontal convexity measuring up to 8 to 9 mm in thickness with minimal mass effect on the adjacent sulci. No midline shift. No new foci of hemorrhage. 2. No evidence of acute fracture in the cervical, thoracic, or lumbar spine. Multilevel degenerative changes as described above. ASSESSMENT & PLAN ESRD (end stage renal disease) (CMS/HCC) (POA: Unknown) Syncope and collapse (POA: Unknown) Subdural hematoma (CMS/HCC) (POA: Unknown) Fall, initial encounter (POA: Unknown) #Ground level fall #Subdural hematoma #Syncope? - likely mechanical fall in setting of repeated falls recently - Neurosurgery consulted, no neurosurgical interventions recommended - Recommending NPH workup PLAN - follow up on TTE to rule out cardiac syncope - keep on telemetry - follow up on orthostatics to rule out vasovagal - follow up PT/OT recommendations - outpatient follow up with neurology for normal pressure hydrocephalus work up ??#Right 2-4 rib fractures - Acute vs subacute - No point tenderness on exam and no pleuritic chest pain - Patient pulling 250 mL on IS, but denies pain on inspiration - Satting well on RA Plan - Continue pulmonary toilet and incentive spirometer - CTM and maintain SpO2 > 90% - Pain control with tylenol as needed #HTN - on lisinopril 20mg BID, HCTZ 12/5mg daily, labetalol 100mg bid - started on home Labetalol 300mg bid and Losartan 50mg daily - Holding HCTZ PLAN - Continue to monitor post dialysis - Will add amlodipine if continues to be HTN despite HD - Started on Losartan, can be started on D/C instead of Lisinopril as per nephro #ESRD w/ HD TTS #Secondary Hyperparathyroidism #Anemia - Nephrology following - dialysis on 10/01 - likely anemia of chronic disease 2/2 ESRD - Iron panel 09/30/2023 negative PLAN - strict intake and output - renally dose medications - will follow nephrology reccs - will continue dialysis as scheduled - transfuse pRBCs for Hgb<7 #Dementia - continue home Memantine #Depression #Anxiety - continue home Escitalopram 5mg daily - continue home Buspirone 5mg TID Code: Full Diet: Renal Electrolytes: Replete PRN PPx: SCDs Access: 2PIV and HD line Dispo: OT/PT advise multidisciplinary therapy, will look into SNF placement The above assessment and plan will be discussed with the attending. This note is not final until attested by attending physician. Yolanda Johnson MD Internal Medicine Resident [facility] 10/01/2023 7:47 AM OSOFT BI CONSULTANT Associated attestation - Rogelio Benitez MD - 10/01/2023 9:06 PM MI[employer]OS[employer]FT BI CONSULTANT I have seen and examined the patient with the resident and I agree with the findings and plan of care as documented by the resident. Date of Service: 10/01/2023 Rogelio Benitez MD Hospitalist, Digital Production Operatoravionics systems integration specialist * Marija Myles RN - 10/01/2023 7:43 AM CST REPORT BEFORE DIALYSIS Diagnosis (MARSHALL/CRF):crf Non-Renal Diagnosis: subdural hematoma Isolation:No active isolations Does patient have signs or symptoms of respiratory infection (fever, cough, shortness of breath):NO Allergies: Allergies Allergen Reactions ??? Ramipril Other Other reaction(s): Other (See Comments) Kidney Damage Kidney Damage Code Status:Full Code Orientation Status: A&X1-2 On telemetry/Rhythm: YES NSR Oxygen:NO- 2L AT TIMES FOR COMFORT Given any medications: NOC MEDS SEE MAR Need for pain medications: NO Blood pressure issues: NO On any drips: NO Is patient diabetic:YES Any labs to draw: NO Any other procedures today: NO Any concerns about this patient:ANIXIETY AT TIMES Any medications to be given with dialysis:EPO Due date of next Central Line Dressing change: N/A Primary RN educated on Incapacitated Nurse: KEVIN OTERO RN [id number] OSOFT BI CONSULTANT * Steffany Baldwin RN - 10/01/2023 4:01 AM CST Problem: Fluid and Electrolyte Imbalance Goal: Fluid and electrolyte balance are achieved/maintained Outcome: Progressing Problem: Infection Goal: Signs and symptoms of infections are decreased or avoided Outcome: Progressing Problem: Pain/Discomfort Goal: Patient exhibits reduced pain/discomfort as evidenced by pain scores Outcome: Progressing Goal: Patient uses pharmacological and non-pharmacological pain management strategies. Outcome: Progressing Goal: Patient verbalizes acceptable level of pain relief and ability to engage in desired activity. Outcome: Progressing Problem: Fall Risk Goal: Fall risk and fall related injury risk are minimized (interventions related to the fall risk can be found in the flowsheet documentation) Outcome: Progressing OSOFT BI CONSULTANT * Cherry Branch RN - 09/30/2023 7:55 PM CST 1900: pt arrived to 8S in 836 bed A. Steffany Woods night nurse will take over care. Daughter Stacy updated of pt's arrival to the floor. Animal Killer A notified as well. OSOFT BI CONSULTANT * Lexi Holden RN - 09/30/2023 6:17 PM CST Goal met 1L removed, VS WDL, no mediations given during treatment, blood returned to patient and hemostasis achieved at access sites in less than 20 minutes Problem: Hemodynamic Status/Cardiac Output Goal: Patient has stable vital signs and fluid balance Outcome: Progressing Problem: Fluid and Electrolyte Imbalance Goal: Fluid and electrolyte balance are achieved/maintained Outcome: Progressing Problem: Infection Goal: Signs and symptoms of infections are decreased or avoided Outcome: Progressing OSOFT BI CONSULTANT * Lyssa Guerra - 09/30/2023 3:58 PM CST Images from the original note were not included. I am aware of this patient's admission, I will be following this dialysis patient for any needs while an inpatient, and keeping their clinic informed of their progress while admitted. Records were forwarded to the clinic for their review. Spoke with Leona at [facility] and she was able to confirm patient's OP HD schedule. Meet with patient in dialysis suite and patient was able to tell me her days but could remember her clinic name and time. Patient voiced no concerns with clinic and asked if I could keep them updated because that is her home. Documented acknowledgement of choice: Yes, verbal consent given Outpatient Clinic [facility] Days: TTS Time: 11:00AM Doctor: Dr Perez Lyssa Guerra Kidney Navigator Ascom: [phone] OSOFT BI CONSULTANT * Carine Garcia, PT - 09/30/2023 3:13 PM CST [facility] Physical Medicine and Rehabilitation Physical Therapy Initial Evaluation Note Patient: Kirsty Rea [facility] Record Number: [id number] Date of : 1940 Age: [age] year old PPE worn by staff: gloves cotx with OT Recommendations: Discharge PT Discharge Recommendations: Patient would benefit from multidisciplinary therapy In addition to the 1:1 evaluation of the patient, additional eval time was spent completing the chart review prior to the assessment, completing the multidisciplinary plan of care and education plan post evaluation and communicating results of the eval to other treatment team members. Nurse and Occupational Therapy contacted regarding patient status and/or discharge plan. Physician Orders: Evaluation and Treat PRECAUTIONS: Weight Bearing Status: (WBAT) DIAGNOSIS: Patient Active Problem List: Osteoporosis Hearing loss Encounter for routine gynecological examination Neuroma of foot Acute renal failure (ARF) ([facility]) Benign hypertensive heart disease 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 failure Cervicalgia Contact dermatitis and other eczema Hypertensive chronic kidney disease with stage 1 through stage 4 chronic kidney disease, or unspecified chronic kidney disease Hypertonicity of bladder Hypertrophy of breast Mixed hyperlipidemia Pain in joint, shoulder region Pain in thoracic spine Thoracic or lumbosacral neuritis or radiculitis Disorder of skin and subcutaneous tissue Intracranial hemorrhage, nontraumatic ([facility]) Pleural effusion Aspiration pneumonia ([facility]) Dysphagia Hyponatremia Elevated troponin Hypoalbuminemia High anion gap metabolic acidosis Normocytic anemia Acute decompensated heart failure ([facility]) Respiratory failure with hypoxia ([facility]) Hypertensive emergency ESRD (end stage renal disease) ([facility]) Syncope and collapse Subdural hematoma ([facility]) Fall, initial encounter Past Medical History: Diagnosis Date ??? Anxiety ??? CKD (chronic kidney disease) stage 3, GFR 30-59 ml/min ([facility]) proteinuria; Director Case = Dr. Reyes ??? CVA (cerebral vascular accident) ([facility]) 08/14/2022 ??? Dementia without behavioral disturbance ([facility]) mild ??? ESRD on dialysis ([facility]) [facility], Th 07/06/23 ??? Gout ??? HTN (hypertension), benign ??? 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 Morphea ??? Osteopenia SUBJECTIVE: Subjective: I feel great! PATIENT GOALS: Home Situation: Type of Residence: Assisted Living Facility (pt has some word finding difficulty; described LONG-TERM as two rooms ) Home Structure: One Story Equipment at Home: Walker-4 Wheeled with Seat;Build in shower seat Prior Level of Functioning: Prior Level of Function Mobility: Ambulate-In Home ;With Assistive Device Fallen Within 6 Mos: 1 Have Help at Home?: Yes, there is help at home now Who assists you at home?: Staff How often is assistance provided?: assist with IADLs as needed Oxygen at Home: No Pain Assessment: Pain Location #1 Pain Scale/Observation: Numeric (0-10) Pain Rating Score #1: 0 OBJECTIVE: At start of therapy session, patient found on stretcher. General Appearance: 82 yo F, NAD, pleasant and cooperative; some facial bruising LDAs: IV's: Peripheral line, Dialysis Site and Oxygen Nasal Cannula Edema: no edema noted in bilateral lower extremities Vitals: (*Assess the 3 levels of oxygen saturations both for room air and 02 unless rest on room air is 88% or less). Rest BP: ? 172/73 HR: 68 Sp02 ?? 95% Room Air ?? Ex/Gait/Activity Without 02 BP: ?? HR: ?? Sp02 ??85% Room Air ?? Ex/Gait/Activity With 02 BP: ?? HR: ?? Sp02 ??96% 2L O2 ?? Post Activity BP: ?? HR: ?? Sp02 ?98% 2L O2 ? Observations: ?? Mental Status/Cognition: Level of Consciousness-Adult: Alert Orientation Level: Oriented to Person;Disoriented to Time;Disoriented to Place Cognition: Follows Commands-Consistent;Safety awareness-decreased;Judgement-decreased ROM: RLE: AROM WFL LLE: AROM WFL Strength: RLE:WFL LLE: WFL Tone: RLE: no abnormal tone noted LLE: no abnormal tone noted Coordination: RLE: impaired LLE: impaired Sensation: RLE: no complaints of numbness or tingling LLE: no complaints of numbness or tingling Mobility: A gait belt and non-slip socks were used for all out of bed activity this date. Bed Mobility: Supine to Sit: Moderate Assistance Sit to Supine: Moderate Assistance Transfers: Sit to Stand: Moderate Assistance Stand to Sit: Moderate Assistance Gait: Weight Bearing Status: (WBAT) Distance Ambulated: 10 FEET Ambulation: Assistive Device: Gait Belt;Walker-2 Wheeled Ambulation: Level of Assistance: Moderate Assistance Ambulation: Gait Deviations: Ataxic;Antalgic (poor safety, poor insight) Balance: Balance Scales/Tests Used: Sitting: Static/Dynamic;Standing: Static/Dynamic Sitting - Static: Fair -;With Both Upper Extremity's Support (leans to R) Sitting - Dynamic: With Both Upper Extremity's Support;Poor + (leans to R) Standing - Static: Fair -;With Both Upper Extremity's Support (leans to R) Standing - Dynamic: Poor;With Both Upper Extremity's Support (leans to R) ACTIVITY TOLERANCE: Patient's activity tolerance: good TREATMENT/INTERVENTIONS: evaluation, bed mobility training, transfer training and gait training Modified Crosby: Current Modified Elizabeth Score: 4 AM-PAC 6 Clicks Mobility Raw Score:: 13 EDUCATION: While performing PT, Patient was instructed in:functional mobility training, safety awareness/fall precautions Presented to patient who demonstrates Good understanding of instructions given. INFORMED CONSENT TO TREATMENT: Plan of care including recommended therapy, goals and frequency, discussed with patient who understands and agrees to proceed. ASSESSMENT: Patient benefited from Physical Therapy achieving the following functional goals to enhance independence. Short Term Goals: Goal Formation With patient Patient will perform bed mobility with stand by assist Patient will transfer sit to/from stand with stand by assist Patient will transfer bed to/from chair with stand by assist Patient will ambulate 30 feet with minimal assist and appropriate AD Corporate Development Analyst Goal(s): Patient to discharge to appropriate next level of inpatient care. Equipment Issued: gait belt Plan: Plan: Gait training Transfer training Assistive device training Bed mobility training Balance training Safety awareness If patient is discharged from the facility, this note serves as a discharge summary if further physical therapy visits did not occur. Refer to filed flowsheet for further details. Following therapy session, patient left on stretcher, with call light within reach. OSOFT BI CONSULTANT * Katherine Chand, OT - 09/30/2023 1:15 PM CST [facility] Physical Medicine and Rehabilitation Occupational Therapy Initial Evaluation Note Patient: Kirsty Rea [facility] Record Number: [id number] Date of : 1940 Age: [age] year old PPE worn by staff: gloves PPE worn by patient: gown - patient, clean;socks - clean Tech: n/a. Patient seen as cotx with PT due to anticipated level of assist, skilled needs Recommendations: Discharge OT Discharge Recommendations: Patient would benefit from multidisciplinary therapy In addition to the 1:1 evaluation of the patient, additional eval time was spent completing the chart review prior to the assessment, completing the multidisciplinary plan of care and education plan post evaluation and communicating results of the eval to other treatment team members. Nurse and Physical Therapy contacted regarding patient status and/or discharge plan. Physician Orders: Evaluation and Treat Activity Level: up ad mushtaq DIAGNOSIS: Patient Active Problem List: Osteoporosis Hearing loss Encounter for routine gynecological examination Neuroma of foot Acute renal failure (ARF) ([facility]) Benign hypertensive heart disease 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 failure Cervicalgia Contact dermatitis and other eczema Hypertensive chronic kidney disease with stage 1 through stage 4 chronic kidney disease, or unspecified chronic kidney disease Hypertonicity of bladder Hypertrophy of breast Mixed hyperlipidemia Pain in joint, shoulder region Pain in thoracic spine Thoracic or lumbosacral neuritis or radiculitis Disorder of skin and subcutaneous tissue Intracranial hemorrhage, nontraumatic ([facility]) Pleural effusion Aspiration pneumonia ([facility]) Dysphagia Hyponatremia Elevated troponin Hypoalbuminemia High anion gap metabolic acidosis Normocytic anemia Acute decompensated heart failure ([facility]) Respiratory failure with hypoxia ([facility]) Hypertensive emergency ESRD (end stage renal disease) ([facility]) Syncope and collapse Subdural hematoma ([facility]) Fall, initial encounter Past Medical History: Diagnosis Date ??? Anxiety ??? CKD (chronic kidney disease) stage 3, GFR 30-59 ml/min ([facility]) proteinuria; Director Case = Dr. Reyes ??? CVA (cerebral vascular accident) ([facility]) 08/14/2022 ??? Dementia without behavioral disturbance ([facility]) mild ??? ESRD on dialysis ([facility]?? Gout ??? HTN (hypertension), benign ??? 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 Morphea ??? Osteopenia SUBJECTIVE: Subjective: Pleasant and agreeable to therapy. PATIENT GOALS: Patient's Primary Concern: Get stronger Home Situation: Type of Residence: Assisted Living Facility Home Structure: One Story Primary Bedroom: First Floor Primary Bathroom: First Floor Equipment at Home: Walker-4 Wheeled with Seat;Build in shower seat Prior Level of Functioning: Mobility: Ambulate-In Home ;With Assistive Device Fallen Within 6 Mos: 1 Have Help at Home?: Yes, there is help at home now Who assists you at home?: Staff How often is assistance provided?: assist with IADLs as needed Oxygen at Home: No Pain Assessment: Pain Location #1 Pain Scale/Observation: Numeric (0-10) Pain Rating Score #1: 0 OBJECTIVE: At start of therapy session, patient found on stretcher General Appearance: Adult female, resting in bed, NAD LDA: IV's: Peripheral line and Dialysis Site Edema: No edema noted Vitals: (*Assess the 3 levels of oxygen saturations both for room air and 02 unless rest on room air is 88% or less). Rest BP: 172/73 HR: 68 Sp02 Sp02 95% Room Air Mental Status/Cognition: Level of Consciousness-Adult: Alert Orientation Level: Oriented to Person;Oriented to Place;Disoriented to Time;Disoriented to Situation Cognition: Follows Commands-Consistent;Safety awareness-decreased;Judgement-decreased;Attention/concentration-normal for age;Processing-Appropriate Attention Span: Appears intact Memory: Decreased recall of recent events;Decreased alf memory Following Commands: Follows all commands and directions without difficulty UE ROM: RUE: AROM WFL LUE: AROM WFL Strength: RUE: grossly weak; ~4-/5 LUE: grossly weak; ~4-/5 UE Tone RUE: no abnormal tone noted LUE: no abnormal tone noted Coordination: intact serial opposition for bilateral hands UE Sensation RUE: intact LUE: intact Perception: Inattention/Neglect: Appears intact Initiation: Appears intact Visual Motor Tracking: Dec smoothness of horizontal tracking;Dec smoothness of vertical tracking Visual Quesada: WDL Mobility: A gait belt and non-slip socks were used for all out of bed activity this date. Bed Mobility: Supine to Sit: Moderate Assistance with HOB in semi-fowlers position Sit to Supine: Moderate Assistance Transfers: Sit to Stand: Moderate Assistance Stand to Sit: Moderate Assistance Type of Transfer: (ambulatory in room) Transfer Device: Gait belt;Walker-2 Wheeled Functional Ambulation: Functional room distance with moderate assist and use of wheeled walker. Cues for safety and technique, increased time to complete. Balance: Sitting - Static: Fair - Sitting - Dynamic: Poor + Standing - Static: Poor + Standing - Dynamic: Poor +;Poor Activities of Daily Living Feeding: Set-up Upper Body Dressing: Minimal Assistance (tie/fasten gown) Lower Body Dressing: Minimal Assistance (don slip-on shoes) Toileting: Declined (no needs at time of tx) Splint Issued/Checked: none ACTIVITY TOLERANCE: Patient's activity tolerance: fair Modified Elizabeth: Current Modified Elizabeth Score: 4 AM-PAC 6 Clicks Daily Activity Raw Score:: 15 TREATMENT / EDUCATION / INTERVENTIONS: While performing OT, Patient was instructed in:functional mobility training, self-care training, safety awareness/fall precautions , discharge planning, use of call light Presented to patient who demonstrates Fair understanding of instructions given. INFORMED CONSENT TO TREATMENT: Plan of care including recommended therapy, goals and frequency, discussed with patient who understands and agrees to proceed. ASSESSMENT: Functional performance limited due to: limited activities of daily living, pain, decreased functional mobility and decreased functional balance. Patient continues to benefit from skilled OccupationalTherapy to achieve the following functional goals. Short Term Goals: Goal Formation With patient Patient will perform grooming standing at sink and independently Patient will perform lower extremity dressing independently Patient will perform toileting independently Patient will transfer to standard toilet independently Corporate Development Analyst Goal(s): Patient to be independent with functional mobility and self-care and should be able to safely discharge to prior level of care. Plan: Plan: ADL training Functional transfer training Functional balance training Bed mobility training Safety awareness If patient is discharged from the facility, this note serves as a discharge summary if further occupational therapy visits did not occur. Refer to filed flowsheet for further details. Following therapy session, patient left on stretcher, with call light within reach. [employer]FT BI CONSULTANT * Lexi Holden RN - 09/30/2023 12:44 PM CST Diagnosis ([facility]/CRF): crf Non-Renal Diagnosis: subdural hematoma Isolation No active isolations Does patient have signs or symptoms of respiratory infection(fever, cough, shortness of breath): no Allergies Allergen Reactions ??? Ramipril Other Other reaction(s): Other (See Comments) Kidney Damage Kidney Damage Code Status: full Orientation Status: x1 On telemetry/Rhythm: no Oxygen: room air Given any medications: see mar Need for pain medications: yes/see mar Blood pressure issues: hypertension On any drips: no Is patient diabetic: yes Any labs to draw: no Any other procedures today: no Any concerns about this patient : hypertension Any medications to be given with dialysis: none Report from:Ramona BOSS Phone number: [phone] [employer] BI CONSULTANT * Joaquín Hale MD - 09/30/2023 7:44 AM CST [facility] Trauma Surgery Progress Note Admit: 09/29/2023 3:23 PM Date: September 30, 2023 Length of Stay: 0 Attending: No att. providers found POD: SUBJECTIVE: History: Patient is a 82 year old female who presents s/p fall. The fall occurred earlier in the day. There was LOC. Patient had an unwitnessed ground level fall at home. Patient was seen at an OSH where she was found to have extra-axial subdural/epidural hemorrhages. Patient is A&Ox2, has had waxing and waning mental status changes per daughter in the last 2 weeks, ESRD on dialysis // (had dialysis today), and recent history of CVA. Patient is not taking blood thinners. VSS in OSH and in ED. Patient reports falling multiple times in the past several weeks. Patient is not complaining of any chest pain and denies chest wall tenderness. Patient is pulling 250mL on IS but denies pain on inspir ation. Patient is saturating well on RA in the ED. Recent Events: - NAEO, HDS but hypertensive to 199 systolic overnight, AF - Tolerating renal diet with no n/v - Denies f/c and pain well controlled - Voiding spontaneously and endorses BMs/flatus OBJECTIVE: Scheduled Medications: ??? 0.9% NaCl 3 mL Intracatheter q8h ??? busPIRone 5 mg Oral TID ??? escitalopram 5 mg Oral QDAY ??? iopamidol Intravenous Contrast - Once ??? labetalol 300 mg Oral BID ??? memantine 5 mg Oral BID Continuous Medications: PRN Medications: 0.9% NaCl, 1-10 mL, PRN acetaminophen, 500 mg, q4h PRN Vital Signs: BP (!) 196/83 Pulse 70 Temp 97.9 ??F (36.6 ??C) Resp 21 Ht 1.753 m (5' 9 ) Wt 59 kg (130 lb) SpO2 92% Diet: DIET RENAL Is&Os: No intake/output data recorded. Physical Exam HEENT Madelyn Coma Scale: 15 Scalp: No injury noted Face: Right cheek ecchymosis Eyes: No injury noted Ears: No injury noted Nose: No injury noted Mouth: No injury noted Neck: No injury noted Comments: ?? Thorax No injury noted Abdomen No injury noted Pelvis/ Perineum Rectal Pelvis/Perineum No injury noted Back No injury noted Extremities LUE: No injury noted RUE: No injury noted LLE: No injury noted RLE: No injury noted Neuro- Vascular Vascular - Left brachial AVF with palpable thrill ?? Pulses Right Left Carotid 2+ Normal 2+ Normal Radial 2+ Normal 2+ Normal Femoral 2+ Normal 2+ Normal Posterior Tibial 2+ Normal 2+ Normal Dorsalis Pedis 2+ Normal 2+ Normal ? Motor/Sensory Exam LUE 0=No drift, limb holds 90 (or 45) degrees for full 10 seconds RUE 0=No drift, limb holds 90 (or 45) degrees for full 10 seconds LLE 0=No drift, limb holds 90 (or 45) degrees for full 10 seconds RLE 0=No drift, limb holds 90 (or 45) degrees for full 10 seconds Labs: Recent Labs Component Name 09/30/23 0541 09/29/23171809/08/22147 WBC 7.7 9.2 7.2 HGB 7.7* 8.8* 8.6* HCT 24.6* 27.7* 26.1* MCV 93.9 93.9 87.6 Recent Labs Component Name 09/30/2341 09/29/23171806/15/23 1046 04/11/23 0736 09/08/22 0148 09/06/22 0701 09/04/22 0636 NA 137 139 - - 137 136 - CL 96* 103 - - 99 95* - CO2 29 25 27 - 23 18* - BUN 25 18 28* - 39* 77* - CREATININE 4.52* 3.22* 3.99* - 2.69* 4.31* - CALCIUM 10.1 8.5 10.6* - 9.2 9.2 - MAGNESIUM 1.9 1.6 - - - - 2.2 PHOS 3.5 - - - 3.5 6.6* - - = values in this interval not displayed. Recent Labs Component Name 09/30/23 0541 09/29/23171809/08/22 0148 08/22/22 0747 08/19/22 1056 08/17/22 0405 03/09/22 1312 PROT 5.2* 5.1* - - 4.9* - - ALB 2.4* 2.4* 2.6* - - - - TBILI 0.5 0.5 - - - - - AST 14 14 - - - - 14 ALT 9 10 - - - - 12 ALKPHOS 113 111 - - - - 72 LIPASE - - - - - - 35 - = values in this interval not displayed. Recent Labs Component Name 09/29/23 1719 08/27/22 0439 08/26/22 0330 INR 0.9 0.9 1.0 No results for input(s): PHART , PO2ART , TCB2QBD , BEART in the last 9[address]13 hours. Imaging: CT CHEST ABDOMEN PELVIS W CONT Result Date: 09/29/2023 Impression: 1.New age-indeterminate fractures of the right second, third, fourth anterior ribs, favored to be acute/subacute. Correlation with point tenderness. 2.Otherwise no evidence of osseous or visceral injury in the chest, abdomen or pelvis. > Dictated by Heath Wu MD, (radiologyresident). IJuwan have personally reviewed and interpreted this examination/study. > Interpreting Provider: Juwan Aceves on 09/29/2023 7:[address] HEAD WO CONTRAST Result Date: 09/29/2023 IMPRESSION: 1. Small acute extra-axial hematoma along the right frontal convexity measuring up to 8to 9 mm in thickness with minimal mass effect on the adjacent sulci. No midline shift. No new foci of hemorrhage. 2. No evidence of acute fracture in the cervical, thoracic, or lumbar spine. Multilevel degenerative changes as described above. > Interpreting Provider: Rosa Davis MD on 09/29/2023 6:[address] CERVICAL SPINE WO CONTRAST Result Date: 09/29/2023 IMPRESSION: 1. Small acute extra-axial hematoma along the right frontal convexity measuring up to 8to 9 mm in thickness with minimal mass effect on the adjacent sulci. No midline shift. No new foci of hemorrhage. 2. No evidence of acute fracture in the cervical, thoracic, or lumbar spine. Multilevel degenerative changes as described above. > Interpreting Provider: Rosa Davis MD on 09/29/2023 6:[address] THORACIC SPINE WO CONTRAST Result Date: 09/29/2023 IMPRESSION: 1. Small acute extra-axial hematoma along the right frontal convexity measuring up to 8to 9 mm in thickness with minimal mass effect on the adjacent sulci. No midline shift. No new foci of hemorrhage. 2. No evidence of acute fracture in the cervical, thoracic, or lumbar spine. Multilevel degenerative changes as described above. > Interpreting Provider: Rosa Davis MD on 09/29/2023 6:[address] LUMBAR SPINE WO CONTRAST Result Date: 09/29/2023 IMPRESSION: 1. Small acute extra-axial hematoma along the right frontal convexity measuring up to 8to 9 mm in thickness with minimal mass effect on the adjacent sulci. No midline shift. No new foci of hemorrhage. 2. No evidence of acute fracture in the cervical, thoracic, or lumbar spine. Multilevel degenerative changes as described above. > Interpreting Provider: Rosa Davis MD on 09/29/2023 6:11 PM ASSESSMENT: Kirsty Rea is a 82 year old female admitted with Patient Active Problem List: Osteoporosis Hearing loss Encounter for routine gynecological examination Neuroma of foot Acute renal failure (ARF) (CMS/HCC) Benign hypertensive heart disease 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 failure Cervicalgia Contact dermatitis and other eczema Hypertensive chronic kidney disease with stage 1 through stage 4 chronic kidney disease, or unspecified chronic kidney disease Hypertonicity of bladder Hypertrophy of breast Mixed hyperlipidemia Pain in joint, shoulder region Pain in thoracic spine Thoracic or lumbosacral neuritis or radiculitis Disorder of skin and subcutaneous tissue Intracranial hemorrhage, nontraumatic (CMS/HCC) Pleural effusion Aspiration pneumonia (CMS/HCC) Dysphagia Hyponatremia Elevated troponin Hypoalbuminemia High anion gap metabolic acidosis Normocytic anemia Acute decompensated heart failure (CMS/HCC) Respiratory failure with hypoxia (CMS/HCC) Hypertensive emergency ESRD (end stage renal disease) (CMS/HCC) Syncope and collapse Subdural hematoma (CMS/HCC) Fall, initial encounter PLAN: - Admitted to medicine team - Neurosurgery consulted and recommend outpatient follow up with neurology for normal pressure hydrocephalus work up - Continue pulmonary toilet and incentive spirometer - Tertiary survey completed with no additional injuries identified - Trauma surgery signing off, please call ([phone]) or page with any questions or concerns Joaquín Hale MD General Surgery Resident [facility] Trauma Pager: [phone] September 30, 2023 7:45 AM OSOFT BI CONSULTANT documented in this encounter H&P Notes * Horacio Davis MD - 09/30/2023 2:45 AM CST [facility] INTERNAL MEDICINE HISTORY & PHYSICAL NOTE Date of Admission: 09/29/2023 Patient: Kirsty Rea Sex: female Age: [age] year old Date of : 1940 Code Status: Full Code SUBJECTIVE Chief Complaint: Fall History of Present Illness: 82 y.o. F w/ ESRD on HD (, , Tue), HTN, gout, dementia, hx of CVA, and HLD who presents from OSHfor GLF while she was at dialysis earlier in the day. Per pt's daughter, there was LOC and the patient was showing signs of AMS afterwards. The dialysis team sent patient to OSH where CT Head revealed right frontal convexity SDH. Decision was made to transfer pt to [facility] for further workup and Neurosurgical evaluation. Pt's is not on any anticoagulants/antiplatelets. Pt's daughter states that pt has been experiencing increased frequency in falls and exhibiting delusional thinking since her CVA in July of this year. Patient reports that she has been feeling foggy for the past 3 days. Denies chest pain. Patient with no tongue biting, eye deviation, shaking, urinary or fecal incontinence at time of fall. HPI limited due to dementia. In ED, VSS. Trop 26. K 3.1. Cr 3.22 (baseline around 3.5). Hgb 8.8. CTH showing SDH. CT chest showing right sided rib fractures. Past Medical History: Past Medical History: Diagnosis Date ??? Anxiety ??? CKD (chronic kidney disease) stage 3, GFR 30-59 ml/min ([facility]) proteinuria; Director Case = Dr. Reyes ??? CVA (cerebral vascular accident) (CMS/HCC) 08/14/2022 ??? Dementia without behavioral disturbance (CMS/HCC) mild ??? ESRD on dialysis (CMS/HCC) [facility] [place] , 07/06/23 ??? Gout ??? HTN (hypertension), benign ??? Hyperparathyroid bone disease (CMS/HCC) s/p surgery ??? Morphea ??? Osteopenia Past Surgical History: Past Surgical History: Procedure Laterality Date ??? Appendectomy ??? Breast Reduction ??? Cholecystectomy, Laparoscopic ??? HX FRACTURE TX ??? INSERTION GRAFT ARTERIO-VENOUS (AV) Left 06/15/2023 Left; LEFT UPPER ARM ARTERIOVENOUS GRAFT ??? OOPHORECTOMY 1971 ??? Parathyroidectomy 1999 Family History: Family History Problem Relation Name Age of Onset ??? Hypertension Father ??? Hypertension Brother Social History: Social History Socioeconomic History ??? Marital status: Spouse name: Not on file ??? Number of children: Not on file ??? Years of education: Not on file ??? Highest education level: Not on file Occupational History ??? Not on file Tobacco Use ??? Smoking status: Former Packs/day: 1 Types: Cigarettes Start date: 10/31/1965 Quit date: 10/31/1983 Years since quittin.9 ??? Smokeless tobacco: Never Vaping Use ??? Vaping Use: Never used Substance and Sexual Activity ??? Alcohol use: Yes Alcohol/week: 0.8 standard drinks of alcohol Types: 1 Standard drinks or equivalent per week Comment: occasionally ??? Drug use: No ??? Sexual activity: Not Currently Partners: Male Other Topics Concern ??? Not on file Social History Narrative ??? Not on file Social Determinants of Health Financial Resource Strain: Not on file Food Insecurity: Not on file Transportation Needs: Not on file Stress: Not on file Housing Stability: Not on file Allergies: Allergies Allergen Reactions ??? Ramipril Other Other reaction(s): Other (See Comments) Kidney Damage Kidney Damage Home Medications: No current facility-administered medications on file prior [...] 1 tablet by mouth once daily Current Medications: Scheduled: ??? 0.9% NaCl 3 mL Intracatheter q8h ??? busPIRone 5 mg Oral TID ??? escitalopram 5 mg Oral QDAY ??? iopamidol Intravenous Contrast - Once ??? labetalol 300 mg Oral BID ??? memantine 5 mg Oral BID Continuous: PRN: ??? SALINE LOCK, INSERT AND MAINTAIN AND 0.9% NaCl AND 0.9% NaCl ??? acetaminophen Review of Systems: ROS Neg except for HPI. OBJECTIVE Vital Signs: Temp: [97.9 ??F (36.6 ??C)] 97.9 ??F (36.6 ??C) Pulse: [65-82] 70 Resp: [9-24] 17 BP: (154-211)/(62-112) 178/69 Physical Exam: Physical Exam Constitutional: General: She is not in acute distress. Appearance: Normal appearance. She is not ill-appearing, toxic-appearing or diaphoretic. HENT: Head: Normocephalic and atraumatic. Ecchymotic lesion to right cheek Nose: Nose normal. Mouth: Mucous membranes are moist. Eyes: Extraocular Movements: Extraocular movements intact. Pupils: Pupils are equal, round, and reactive to light. Cardiovascular: Rate and Rhythm: Normal rate and regular rhythm. Pulses: Normal pulses. Heart sounds: Normal heart sounds. No murmur heard. Pulmonary: Effort: Pulmonary effort is normal. No respiratory distress. Breath sounds: Normal breath sounds. No stridor. No wheezing. Abdominal: General: There is no distension. Palpations: Abdomen is soft. Tenderness: There is no abdominal tenderness. There is no right CVA tenderness, left CVA tenderness, guarding or rebound. Musculoskeletal: General: Normal range of motion. Cervical back: Normal range of motion and neck supple. Right lower leg: No edema. Left lower leg: No edema. Skin: General: Skin is warm and dry. Capillary Refill: Capillary refill takes less than 2 seconds. Findings: No rash. Neurological: General: No focal deficit present. Face symmetric, tongue midline. Mental Status: She is alert and oriented to person, place, and time. Cranial Nerves: Cranial nerves 2-12 are intact. No cranial nerve deficit. Sensory: Sensation is intact. Motor: Motor function is intact. No weakness. Coordination: Coordination is intact. Gait: Gait is intact. Psychiatric: Mood and Affect: Mood normal. Lab Results: CBC: Recent Labs Component Name 09/29/23171809/08/228 09/06/22 0701 WBC 9.2 7.2 7.9 HGB 8.8* 8.6* 8.2* HCT 27.7* 26.1* 24.6* MCV 93.9 87.6 87.2 Coagulation Panel: Recent Labs Component Name 09/29/23171808/27/22 0439 08/26/22 0330 PT 12.2 11.8* 12.9 INR 0.9 0.9 1.0 BMP: Recent Labs Component Name 09/29/23171806/15/23 1046 04/11/23 0736 09/08/22 0148 09/06/22 0701 NA 139 - - 137 136 POTASSIUM 3.1* 3.7 4.0 3.4* 4.0 CL 103 - - 99 95* CO2 25 27 27 23 18* BUN 18 28* 43* 39* 77* CREATININE 3.22* 3.99* 4.77* 2.69* 4.31* CALCIUM 8.5 10.6* 10.5* 9.2 9.2 Recent Labs Component Name 09/29/23171809/04/22 0636 09/03/22 0649 MAGNESIUM 1.6 2.2 2.2 Recent Labs Component Name 09/08/228 09/06/22 0701 09/03/22 0649 PHOS 3.5 6.6* 4.1 Hepatic Panel: Recent Labs Component Name 09/29/23 1719 09/08/22 0148 09/06/22 0701 08/17/22 0405 03/09/22 1312 AST 14 - - - 14 ALT 10 - - - 12 ALKPHOS 111 - - - 72 TBILI 0.5 - - - - ALB 2.4* 2.6* 2.4* - - - = values in this interval not displayed. ABG: Recent Labs Component Name 08/22/22 1801 08/22/22 0816 08/21/22 1930 PH 7.29* 7.31* 7.34* PCO2 33* 32* 31* PO2 66* 93 312* Amylase/Lipase: Invalid input(s): AMYL , LIPA Thyroid Studies: Recent Labs Component Name 08/20/22 0250 TSH 4.654 Cardiac Enzymes: Recent Labs Component Name 08/22/22 0747 08/21/22 2340 08/21/22 1655 TROPONINI 0.037* 0.058* 0.054* Lipid Panel: No results for input(s): LDLCALC , HDL in the last 34104 hours. UA: N/A Microbiology: N/A Imaging & Studies: CT Head, cervical spine, lumbar spine, thoracic spine - 1. Small acute extra-axial hematoma along the right frontal convexity measuring up to 8 to 9 mm in thickness with minimal mass effect on the adjacent sulci. No midline shift. No new foci of hemorrhage. 2. No evidence of acute fracture in the cervical, thoracic, or lumbar spine. Multilevel degenerative changes as described above. CT CAP - 1.New age-indeterminate fractures of the right second, third, fourth anterior ribs, favored to be acute/subacute. Correlation with point tenderness. 2.Otherwise no evidence of osseous or visceral injury in the chest, abdomen or pelvis. ASSESSMENT & PLAN Syncope and collapse (POA: Unknown) Subdural hematoma (CMS/HCC) (POA: Unknown) Fall, initial encounter (POA: Unknown) #GLF #Extra axial subdural hematoma Ddx: syncope vs. Orthostatic vs. Mechanical fall vs. Seizure vs. Stroke. No focal neuro deficits on exam. -NSGY signed off, no surgical intervention -Trauma signed off -NSGY recommended NPH workup ??PLAN: -Tylenol prn for pain -F/u orthostatics -Cont tele -Fall, aspiration precautions -PT/OT ordered -F/u echo -Neuro consult ordered #Hypokalemia, POA K 3.1 on admission. PLAN: -40 meq K ordered -CTM CMP #Normocytic anemia, POA Hgb 8.8 on admission. PLAN: -F/u iron panel, ferritin -CTM CBC, transfuse Hgb <7 #ESRD On T, Th, Sat dialysis. PLAN: -Nephro consult ordered for missed dialysis 09/29 ?? #Right 2-4 rib fractures Acute vs subacute on radiology read. No point tenderness on exam and no pleuritic chest pain. -Patient pulling 250 mL on IS, but denies pain on inspiration -Satting well on RA PLAN: -CTM -Maintain SpO2 > 90% -Tylenol prn for pain #HTN PLAN: -Cont home Labetalol -Holding home Lisinopril and HCTZ at this time given possible orthostatics #Gout Not on any home meds. PLAN: -CTM #Dementia PLAN: -Cont home Memantine #Hx of CVA #HLD Not on any home meds. PLAN: -CTM #Anxiety/Depression PLAN: -Cont home Buspar and Lexapro Code: Full (day team can clarify status with fam) Diet: Renal Electrolytes: Replete PRN PPx: SCD's Access: PIV Dispo: Admit to Medicine The above assessment and plan will be discussed with the attending. This note is not final until attested by attending physician. Horacio Davis MD Internal Medicine Resident [facility] - [facility] 09/30/2023 2:46 AM OSOFT BI CONSULTANT Associated attestation - Axel Roman MD - 09/30/2023 11:43 AM MICROSOFT BI CONSULTANT I have personally interviewed and independently examined patient, and discussed with resident. I agree with documented history, physical, assessment and plan. I provide the following additions/corrections: Assessment: Syncope and collapse (POA: Unknown) Subdural hematoma (CMS/HCC) (POA: Unknown) Fall, initial encounter (POA: Unknown) Plan: - GLF, subdural hematoma: unclear cause, though appears mechanical. NSGY & trauma consulted, signed off. Continue tele, echo, orthostatics. PT/OT eval appreciated - HypoK: monitor & replete - ESRD: nephro. HD per prior schedule Rest of plan per resident note. Please see resident note for details. Date of Service: 09/30/2023 Axel Roman MD * Tello Enriquez MD - 09/29/2023 7:45 PM CST TRAUMA ADMISSION HISTORY & PHYSICAL Date of Admission:09/29/2023 Date of Consult:09/29/2023 Time Seen: 7:00 PM Activation level: 3 Trauma Team: Attending: Jacqueline Connor MD Senior: Carolyn King MD Phillip: Tello Enriquez MD Subjective: Pre Hospital (mechanism, treatments, clinical course): Description of mechanismFall Trauma occurred earlier in the day Clinical course of patient Patient arrived by EMS Intubated in the field - NO Blood given in field - NO IV fluids given- No tourniquet placed in the field -No Hospital (chief complaint): Patient is a 82 year old female who presents s/p fall. The fall occurred earlier in the day. There was LOC. Patient had an unwitnessed ground level fall at home. Patient was seen at an OSH where she was found to have extra-axial subdural/epidural hemorrhages. Patient is A&Ox2, has had waxing and waning mental status changes per daughter in the last 2 weeks, ESRD on dialysis // (had dialysis today), and recent history of CVA. Patient is not taking blood thinners. VSS in OSH and in ED. Patient reports falling multiple times in the past several weeks. Patient is not complaining of any chest pain and denies chest wall tenderness. Patient is pulling 250mL on IS but denies pain on inspir ation. Patient is saturating well on RA in the ED. Complains of Pain: No Allergies: See below Medications: See below Immunizations: See below Past Medical History: See below Hospitalized: See below Surgical History: See below Chronic Illness(es): See below Social: Alcohol - see below Drug use- - see below Last Meal: unknown Female: Last menstrual Period - post menopausal Past Medical History: Diagnosis Date ??? Anxiety ??? CKD (chronic kidney disease) stage 3, GFR 30-59 ml/min ([facility]) proteinuria; Director Case = Dr. Reyes ??? CVA (cerebral vascular accident) ([facility]) 08/14/2022 ??? Dementia without behavioral disturbance ([facility]) mild ??? ESRD on dialysis ([facility]) julian [facility], Th 07/06/23 ??? Gout ??? HTN (hypertension), benign ??? 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 Morphea ??? Osteopenia ??? acetaminophen (Tylenol) 500 MG tablet ??? ALPRAZolam (Xanax) 0.25 MG tablet ??? busPIRone (Buspar) 5 MG tablet ??? epoetin deyanira-EPBX (Retacrit) 4000 UNIT/ML injection ??? escitalopram (Lexapro) 5 MG half tablet ??? hydroCHLOROthiazide (Microzide) 12.5 MG capsule ??? labetalol (Normodyne; Trandate) 300 MG tablet ??? lanthanum (Fosrenol) 1000 MG chew tablet ??? lisinopril (Prinivil; Zestril) 20 MG tablet ??? memantine (Namenda) 5 MG tablet ??? Multiple Vitamins-Minerals (PRESERVISION AREDS 2 PO) Past Surgical History: Procedure Laterality Date ??? Appendectomy ??? Breast Reduction ??? Cholecystectomy, Laparoscopic ??? HX FRACTURE TX ??? INSERTION GRAFT ARTERIO-VENOUS (AV) Left 06/15/2023 Left; LEFT UPPER ARM ARTERIOVENOUS GRAFT ??? OOPHORECTOMY 1971 ??? Parathyroidectomy 1999 Family History Problem Relation Name Age of Onset ??? Hypertension Father ??? Hypertension Brother Social History Socioeconomic History ??? Marital status: Spouse name: Not on file ??? Number of children: Not on file ??? Years of education: Not on file ??? Highest education level: Not on file Occupational History ??? Not on file Tobacco Use ??? Smoking status: Former Packs/day: 1 Types: Cigarettes Start date: 10/31/1965 Quit date: 10/31/1983 Years since quittin.9 ??? Smokeless tobacco: Never Vaping Use ??? Vaping Use: Never used Substance and Sexual Activity ??? Alcohol use: Yes Alcohol/week: 0.8 standard drinks of alcohol Types: 1 Standard drinks or equivalent per week Comment: occasionally ??? Drug use: No ??? Sexual activity: Not Currently Partners: Male Other Topics Concern ??? Not on file Social History Narrative ??? Not on file Social Determinants of Health Financial Resource Strain: Not on file Food Insecurity: Not on file Transportation Needs: Not on file Stress: Not on file Housing Stability: Not on file REVIEW OF SYSTEMS: Constitutional: Negative for fevers or chills Eyes: Negative for eye pain, glasses or contacts. Negative for vision changes Ears, nose, mouth, and throat: Negative for difficulty speaking, swallowing, or hearing Respiratory: Negative for shortness of breath, cough Cardiovascular: Negative for palpitations, chest pain, dyspnea on exertion Gastrointestinal: Negative for heartburn or reflux, constipation, diarrhea, poor appetite, abdominal pain, nausea, vomiting Genitourinary: Negative for dysuria, hematuria, frequency or urgency Skin: Negative for rash or itching Hematologic/lymphatic: Negative for new bruising Neurological: Negative for headaches, numbness, tingling, or new weakness Behavioral/Psych: Negative for SI/HI Endocrine: Negative for polyuria, polydipsia, heat or cold intolerance The rest of the review of systems was negative. PRIMARY SURVEY Airway: intact Breathing: intact Circulation: intact Cap Refill: <5s Skin: warm, well perfused Skin Color: acyanotic Pulses Carotid: 2+ Radial: 2+ Femoral: 2+ Popliteal: 2+ Dorsalis Pedis: 2+ Posterior Tibial: 2+ Disabililty GCS 15 Verbal 5, Motor 6, Eyes 4 Pupils: PERRLA 3 mm SECONDARY SURVEY Blood pressure 158/62, pulse 71, temperature 97.9 ??F (36.6 ??C), resp. rate 22, height 1.753 m (5'9 ), weight 59 kg (130 lb), SpO2 92%, not currently . Temp Av.9 ??F (36.6 ??C) Min: 97.9 ??F (36.6 ??C) Max: 97.9 ??F (36.6 ??C), Pulse Av.8 Min: 71 Max: 82, Resp Av.8 Min: 9 Max: 22, BP Min: 158/62 Max: 211/83 No intake or output data in the 24 hours ending 09/29/23 2150 Physical Exam Head: normocephalic, atraumatic Eyes: PERRLA 3mm, no conjunctival hemorrhage Ears: Tympanic membranes clear, no hemotympanum Nose: No evidence of trauma, no septal hematoma Oropharynx: pink, atraumatic, no malocclusion Maxillofacial: Face stable, not TTP Neck: trachea midline, no ecchymosis or lacerations present Cervical Spine: Not TTP, no step offs, no crepitus Lungs: CTA-B, nonlabored Chest: Not TTP, no deformity CV: RRR, no murmurs, rubs, or gallops Abdomen/Pelvis: SNTND, normoactive bowel sounds. Pelvis stable. : Normal female external genitalia Rectal Exam: Normal tone, no gross blood, no stool Extremities: RUE: No evidence of trauma, no deformity or ecchymosis present, normal strength/sensation/ROM LUE: No evidence of trauma, no deformity or ecchymosis present, normal strength/sensation/ROM RLE: No evidence of trauma, no deformity or ecchymosis present, normal strength/sensation/ROM LLE: No evidence of trauma, no deformity or ecchymosis present, normal strength/sensation/ROM Back (Thoracic and Lumbar Spines): Not TTP, no step offs, no crepitus Skin: No abrasions or lacerations SECONDARY DATA ED Trauma FAST Ultrasound not indicated or performed Data Review: CBC Recent Labs Component Name 09/29/23 1719 09/08/22 0148 09/06/22 0701 WBC 9.2 7.2 7.9 HGB 8.8* 8.6* 8.2* HCT 27.7* 26.1* 24.6* PLTCOUNT 233 268 223 BMP Recent Labs Component Name 09/29/23 1719 06/15/23 1046 04/11/23 0736 09/08/22 0148 09/06/22 0701 09/03/22 0649 08/15/22 0339 03/09/22 1312 SODIUM - 136 134* - - - - 140 POTASSIUM 3.1* 3.7 4.0 3.4* 4.0 4.8* - 3.9 CHLORIDE - 97* 98 - - - - 109 CO2 25 27 27 23 18* 23 - 21 BUN 18 28* 43* 39* 77* 45* - 65* CREATININE 3.22* 3.99* 4.77* 2.69* 4.31* 3.18* - 2.74* GLUCOSE 82 105 99 104 100 117* - 99 CALCIUM 8.5 10.6* 10.5* 9.2 9.2 9.5 - 8.7 PHOS - - - 3.5 6.6* 4.1 - - - = values in this interval not displayed. LFTs Recent Labs Component Name 09/29/239 03/09/22 1312 TPROT - 5.4* ALBUMIN - 3.6 AST 14 14 ALT 10 12 ALKPHOS 111 72 TBIL - 0.3 Coags Recent Labs Component Name 09/29/23 1719 08/27/22 0439 08/26/22 0330 PT 12.2 11.8* 12.9 INR 0.9 0.9 1.0 ABG Recent Labs Component Name 08/22/22 1801 08/22/22 0816 08/21/22 1930 PH 7.29* 7.31* 7.34* PO2 66* 93 312* PCO2 33* 32* 31* BE -9.8* -9.1* -8.2* Imaging: CT CHEST ABDOMEN PELVIS W CONT Result Date: 09/29/2023 PROCEDURE: CT CHEST ABDOMEN PELVIS W CONT, DATE/TIME OF EXAM: 09/29/2023 5:04 PM, LOCATION [facility] INDICATION: W19.XXXA: Fall, initial encounter ADDITIONAL CLINICAL [...] greater than left dependent atelectasis No suspicious pul monary nodules are identified. No pleural fluid or pneumothorax is present. Heart and Pericardium: The cardiac chambers are normal in size. No pericardial fluid or thickening is present. The coronaryarteries are severely atherosclerotic. Mediastinum and Heidi: No [...] represent postsurgical changes. Spleen: Normal. Pancreas: Normal. Adrenal s: Right adrenal gland is normal. Nodular morphology of the left adrenal gland without a discrete lesion Kidneys: Bilateral kidneys are atrophic. There is no nephrolithiasis or hydronephrosis. Gastrointestinal: The stomach and visualized loops of small bowel are unremarkable. Colonic diverticulosiswithout evidence of diverticulitis is seen. The appendix is not seen; however, no inflammatory duran es are seen in the right lower quadrant. [...] pelvis. > Dictated by Heath Wu MD, (radiologyresident). I, Juwan Aceves have personally reviewed and interpreted this examination/study. > Interpreting Provider: Juwan Aceves on 09/29/2023 7:[address] HEAD WO CONTRAST Result Date: 09/29/2023 PROCEDURE: CT HEAD WO CONTRAST, CT LUMBAR SPINE WO CONTRAST, CT THORACIC SPINE WO CONTRAST, CT CERVICAL SPINE WO CONTRAST DATE/TIME OF EXAM: 09/29/2023 5:04 PM CLINICAL INFORMATION: None relevant/notprovided if blank. Indication: W19.XXXA: Fall, initial encounter Additional History: COMPARISON: Outside CT, same date, CT head 08/22/2022 TECHNIQUE: CT of the head and cervical spine were performed w ithout contrast according to standard protocol. Reformatted axial, sagittal, and coronal images of the thoracic and lumbar spine were obtained by the technologist from a concurrently performed body CT and sent to the workstation for review. FINDINGS: Head: Small hyperdense extra-axial subdural or epidural hematoma along the right frontal convexity measuring up to 8 to 9 mm in thickness, unchangedcompared to recent prior study, no new foci of hemorrhage. There is moderate generalized cerebral volume loss with associated ex vacuo ventricular dilatation. The basilar cisterns are patent. Minimalmass effect on the adjacent right frontal sulci. [...] is noted. Minimal right frontal scalp swelling. Cervicalspine: Mild anterolisthesis of C2 over C3 C3 [...] stenosis most prominent at the level of rightC3-C4, left C4-C5, bilateral C6-C7. No acute soft tissue abnormality is identified. Artifact limitsevaluation of subtle clavicular fractures. Slight heterogeneous appearance [...] canal stenosis is seen. Multilevel mild to moderatefacet arthropathy predominantly in the upper thoracic spine on the right side.. There is associatedmild to moderate neural foraminal stenosis at multiple [...] moderate central canal stenosis most prominent at thelevel of L3-L4 and L4-L5 Moderate to severe facet arthropathy most prominent on the right through the levels of L3-L4 to L5-S1. Multilevel moderate neural foramina stenosis most prominent at the level of right L2-L3, L4-L5, L5- S1 bilaterally There is atherosclerotic calcification of the abdominal aorta and its branch vessels. Please refer to CT chest abdomen pelvis from same day for additional soft tissue details. IMPRESSION: 1. Small acute extra-axial hematoma along the right frontal convexity measuring up to 8to 9 mm in thickness with minimal mass effect on the adjacent sulci. No midline shift. No new foci of hemorrhage. 2. No evidence of acute fracture in the cervical, thoracic, or lumbar spine. Multilevel degenerative changes as described above. > Interpreting Provider: Rosa Davis MD on 09/29/2023 6:[address] CERVICAL SPINE WO CONTRAST Result Date: 09/29/2023 PROCEDURE: CT HEAD WO CONTRAST, CT LUMBAR SPINE WO CONTRAST, CT THORACIC SPINE WO CONTRAST, CT CERVICAL SPINE WO CONTRAST DATE/TIME OF EXAM: 09/29/2023 5:04 PM CLINICAL INFORMATION: None relevant/notprovided if blank. Indication: W19.XXXA: Fall, initial encounter Additional History: COMPARISON: Outside CT, same date, CT head 08/22/2022 TECHNIQUE: CT of the head and cervical spine were performed w ithout contrast according to standard protocol. Reformatted axial, sagittal, and coronal images of the thoracic and lumbar spine were obtained by the technologist from a concurrently performed body CT and sent to the workstation for review. FINDINGS: Head: Small hyperdense extra-axial subdural or epidural hematoma along the right frontal convexity measuring up to 8 to 9 mm in thickness, unchangedcompared to recent prior study, no new foci of hemorrhage. There is moderate generalized cerebral volume loss with associated ex vacuo ventricular dilatation. The basilar cisterns are patent. Minimalmass effect on the adjacent right frontal sulci. [...] is noted. Minimal right frontal scalp swelling. Cervicalspine: Mild anterolisthesis of C2 over C3 C3 [...] stenosis most prominent at the level of rightC3-C4, left C4-C5, bilateral C6-C7. No acute soft tissue abnormality is identified. Artifact limitsevaluation of subtle clavicular fractures. Slight heterogeneous appearance [...] canal stenosis is seen. Multilevel mild to moderatefacet arthropathy predominantly in the upper thoracic spine on the right side.. There is associatedmild to moderate neural foraminal stenosis at multiple [...] moderate central canal stenosis most prominent at thelevel of L3-L4 and L4-L5 Moderate to severe facet arthropathy most prominent on the right through the levels of L3-L4 to L5-S1. Multilevel moderate neural foramina stenosis most prominent at the level of right L2-L3, L4-L5, L5- S1 bilaterally There is atherosclerotic calcification of the abdominal aorta and its branch vessels. Please refer to CT chest abdomen pelvis from same day for additional soft tissue details. IMPRESSION: 1. Small acute extra-axial hematoma along the right frontal convexity measuring up to 8to 9 mm in thickness with minimal mass effect on the adjacent sulci. No midline shift. No new foci of hemorrhage. 2. No evidence of acute fracture in the cervical, thoracic, or lumbar spine. Multilevel degenerative changes as described above. > Interpreting Provider: Rosa Davis MD on 09/29/2023 6:[address] THORACIC SPINE WO CONTRAST Result Date: 09/29/2023 PROCEDURE: CT HEAD WO CONTRAST, CT LUMBAR SPINE WO CONTRAST, CT THORACIC SPINE WO CONTRAST, CT CERVICAL SPINE WO CONTRAST DATE/TIME OF EXAM: 09/29/2023 5:04 PM CLINICAL INFORMATION: None relevant/notprovided if blank. Indication: W19.XXXA: Fall, initial encounter Additional History: COMPARISON: Outside CT, same date, CT head 08/22/2022 TECHNIQUE: CT of the head and cervical spine were performed w ithout contrast according to standard protocol. Reformatted axial, sagittal, and coronal images of the thoracic and lumbar spine were obtained by the technologist from a concurrently performed body CT and sent to the workstation for review. FINDINGS: Head: Small hyperdense extra-axial subdural or epidural hematoma along the right frontal convexity measuring up to 8 to 9 mm in thickness, unchangedcompared to recent prior study, no new foci of hemorrhage. There is moderate generalized cerebral volume loss with associated ex vacuo ventricular dilatation. The basilar cisterns are patent. Minimalmass effect on the adjacent right frontal sulci. [...] is noted. Minimal right frontal scalp swelling. Cervicalspine: Mild anterolisthesis of C2 over C3 C3 [...] stenosis most prominent at the level of rightC3-C4, left C4-C5, bilateral C6-C7. No acute soft tissue abnormality is identified. Artifact limitsevaluation of subtle clavicular fractures. Slight heterogeneous appearance [...] canal stenosis is seen. Multilevel mild to moderatefacet arthropathy predominantly in the upper thoracic spine on the right side.. There is associatedmild to moderate neural foraminal stenosis at multiple [...] moderate central canal stenosis most prominent at thelevel of L3-L4 and L4-L5 Moderate to severe facet arthropathy most prominent on the right through the levels of L3-L4 to L5-S1. Multilevel moderate neural foramina stenosis most prominent at the level of right L2-L3, L4-L5, L5- S1 bilaterally There is atherosclerotic calcification of the abdominal aorta and its branch vessels. Please refer to CT chest abdomen pelvis from same day for additional soft tissue details. IMPRESSION: 1. Small acute extra-axial hematoma along the right frontal convexity measuring up to 8to 9 mm in thickness with minimal mass effect on the adjacent sulci. No midline shift. No new foci of hemorrhage. 2. No evidence of acute fracture in the cervical, thoracic, or lumbar spine. Multilevel degenerative changes as described above. > Interpreting Provider: Rosa Davis MD on 09/29/2023 6:[address] LUMBAR SPINE WO CONTRAST Result Date: 09/29/2023 PROCEDURE: CT HEAD WO CONTRAST, CT LUMBAR SPINE WO CONTRAST, CT THORACIC SPINE WO CONTRAST, CT CERVICAL SPINE WO CONTRAST DATE/TIME OF EXAM: 09/29/2023 5:04 PM CLINICAL INFORMATION: None relevant/notprovided if blank. Indication: W19.XXXA: Fall, initial encounter Additional History: COMPARISON: Outside CT, same date, CT head 08/22/2022 TECHNIQUE: CT of the head and cervical spine were performed w ithout contrast according to standard protocol. Reformatted axial, sagittal, and coronal images of the thoracic and lumbar spine were obtained by the technologist from a concurrently performed body CT and sent to the workstation for review. FINDINGS: Head: Small hyperdense extra-axial subdural or epidural hematoma along the right frontal convexity measuring up to 8 to 9 mm in thickness, unchangedcompared to recent prior study, no new foci of hemorrhage. There is moderate generalized cerebral volume loss with associated ex vacuo ventricular dilatation. The basilar cisterns are patent. Minimalmass effect on the adjacent right frontal sulci. [...] is noted. Minimal right frontal scalp swelling. Cervicalspine: Mild anterolisthesis of C2 over C3 C3 [...] stenosis most prominent at the level of rightC3-C4, left C4-C5, bilateral C6-C7. No acute soft tissue abnormality is identified. Artifact limitsevaluation of subtle clavicular fractures. Slight heterogeneous appearance [...] canal stenosis is seen. Multilevel mild to moderatefacet arthropathy predominantly in the upper thoracic spine on the right side.. There is associatedmild to moderate neural foraminal stenosis at multiple [...] moderate central canal stenosis most prominent at thelevel of L3-L4 and L4-L5 Moderate to severe facet arthropathy most prominent on the right through the levels of L3-L4 to L5-S1. Multilevel moderate neural foramina stenosis most prominent at the level of right L2-L3, L4-L5, L5- S1 bilaterally There is atherosclerotic calcification of the abdominal aorta and its branch vessels. Please refer to CT chest abdomen pelvis from same day for additional soft tissue details. IMPRESSION: 1. Small acute extra-axial hematoma along the right frontal convexity measuring up to 8to 9 mm in thickness with minimal mass effect on the adjacent sulci. No midline shift. No new foci of hemorrhage. 2. No evidence of acute fracture in the cervical, thoracic, or lumbar spine. Multilevel degenerative changes as described above. > Interpreting Provider: Rosa Davis MD on 09/29/2023 6:[address] HEAD WO CONTRAST Final Result PROCEDURE: CT HEAD WO CONTRAST, CT LUMBAR [...] Rosa Davis MD on 09/29/2023 6:[address] CERVICAL SPINE WO CONTRAST Final Result PROCEDURE: CT HEAD WO CONTRAST, CT LUMBAR [...] Rosa Davis MD on 09/29/2023 6:[address] CHEST ABDOMEN PELVIS W CONT Final Result PROCEDURE: CT CHEST ABDOMEN PELVIS W CONT, DATE/TIME OF EXAM: 09/29/2023 5:04 PM, LOCATION [facility] INDICATION: W19.XXXA: Fall, initial [...] pelvis. > Dictated by Heath Wu MD, (cmo & president). I, Juwan Aecves have personally reviewed and interpreted this examination/study. > Interpreting Provider: Juwan Aceves on 09/29/2023 7:[address] THORACIC SPINE WO CONTRAST Final Result PROCEDURE: CT HEAD WO CONTRAST, CT LUMBAR [...] Rosa Davis MD on 09/29/2023 6:[address] LUMBAR SPINE WO CONTRAST Final Result PROCEDURE: CT HEAD WO CONTRAST, CT LUMBAR [...] Rosa Davis MD on 09/29/2023 6:11 PM Prelim Reads: Consultants: IP CONSULT TO NEUROSURGERY Assessment and Plan: Patient Active Problem List: Osteoporosis Hearing loss Encounter for routine gynecological examination Neuroma of foot Acute renal failure (ARF) (CMS/[facility]) Benign hypertensive heart disease 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 failure Cervicalgia Contact dermatitis and other eczema Hypertensive chronic kidney disease with stage 1 through stage 4 chronic kidney disease, or unspecified chronic kidney disease Hypertonicity of bladder Hypertrophy of breast Mixed hyperlipidemia Pain in joint, shoulder region Pain in thoracic spine Thoracic or lumbosacral neuritis or radiculitis Disorder of skin and subcutaneous tissue Intracranial hemorrhage, nontraumatic (CMS/HCC) Pleural effusion Aspiration pneumonia (CMS/HCC) Dysphagia Hyponatremia Elevated troponin Hypoalbuminemia High anion gap metabolic acidosis Normocytic anemia Acute decompensated heart failure (CMS/HCC) Respiratory failure with hypoxia (CMS/HCC) Hypertensive emergency ESRD (end stage renal disease) (CMS/HCC) Syncope and collapse Subdural hematoma (CMS/HCC) Fall, initial encounter This is a 82 year old female who is s/p fall Injuries: #Extra axial hematoma #Right 2-4 rib fractures Neuro: #Extra axial hematoma --Neurosurgery consulted, recs below -Neurosurgery signing off and not recommending neurosurgical interventions at this time. Recommending NPH workup. -Pain control -No deficits Cardiovascular: -HD Stable -Maintain MAP > 65 mmHg Pulm: #Right 2-4 rib fractures -Acute vs subacute on radiology read. No point tenderness on exam and no pleuritic chest pain -Patient pulling 250 mL on IS, but denies pain on inspiration -Satting well on RA -Maintain SpO2 > 90% : -JULEE Heme: -Hgb >7 ID: Tetanus Endo: -JULEE Lines: -PIV MSK: -NTD Diet: -Full diet Prophy: SCDs, Dispo: Not recommending admission to trauma service due to lack of any identifiable traumatic injuries that would benefit from interventions offered from this service. Tello Enriquez MD [facility] September 29, 2023 9:50 PM OSOFT BI CONSULTANT Associated attestation - Jacqueline Connor DO - 09/30/2023 5:49 AM MICROSOFT BI CONSULTANT Trauma consult, not paged out. I was present on the date of service to evaluate the patient. Patient is a 82 year old female presenting after a ground level fall. Per patient's family she doeshave a history of dementia. She has been falling progressively more frequently over the past 3 weeks. She did have +LOC after this fall. She was noted to have SDH. Patient's injuries include SDH and age indeterminate rib fractures, R 2-4. Primary and secondary assessments showed patent airway, equal bilateral breath sounds, palpable distal pulses, GCS 14 Co-Morbid Conditions: HTN ESRD on HD CVA Past Surgical History: Procedure Laterality Date Appendectomy Breast Reduction Cholecystectomy, Laparoscopic HX FRACTURE TX INSERTION GRAFT ARTERIO-VENOUS (AV) Left 06/15/2023 Left; LEFT UPPER ARM ARTERIOVENOUS GRAFT OOPHORECTOMY 1972 Parathyroidectomy 1999 Allergies Allergen Reactions Ramipril Other Other reaction(s): Other (See Comments) Kidney Damage Kidney Damage Social History Socioeconomic History Marital status: Tobacco Use Smoking status: Former Packs/day: 1 Types: Cigarettes Start date: 10/31/1965 Quit date: 10/31/1983 Years since quittin.9 Smokeless tobacco: Never Vaping Use Vaping Use: Never used Substance and Sexual Activity Alcohol use: Yes Alcohol/week: 0.8 standard drinks of alcohol Types: 1 Standard drinks or equivalent per week Comment: occasionally Drug use: No Sexual activity: Not Currently Partners: Male Family History Problem Relation Name Age of Onset Hypertension Father Hypertension Brother Anticoagulation Use: None (Not in a hospital admission) @CMEDS@ Objective: Patient Vitals for the past 8 hrs: BP Pulse Resp SpO2 09/30/23 0500 (!) 192/69 73 18 92 % 09/30/23 0400 (!) 198/80 76 19 92 % 09/30/23 0300 173/73 64 18 91 % 09/30/23 0200 (!) 199/78 71 18 92 % 09/30/23 0100 178/69 70 17 92 % 09/30/23 0000 (!) 154/112 66 20 92 % 09/29/23 2300 162/65 66 17 93 % 09/29/23 2200 178/69 72 20 92 % No intake or output data in the 24 hours ending 09/30/23 0544 Trauma Exam: Neuro: GCS 14 Head: normocephalic, atraumatic and no scalp lacerations/abrasions noted Eyes: pupils equal and reactive to light and EOMI Chest: no evidence of trauma Cardiac: RRR Pulmonary: clear to auscultation with equal bilateral breath sounds Abdomen: Soft, non-tender, non-distended, no rebound or guarding Back: no thoracolumbar spine tenderness or step-offs palpated and no abrasions, lacerations or hematomas CBC: Recent Labs Component Name 09/29/23 1719 09/08/22 0148 09/06/22 0701 WBC 9.2 7.2 7.9 HGB 8.8* 8.6* 8.2* HCT 27.7* 26.1* 24.6* PLTCOUNT 233 268 223 BMP: Recent Labs Component Name 09/29/23 1719 06/15/23 1046 04/11/23 0736 08/15/22 0339 03/09/22 1312 SODIUM - 136 134* - 140 POTASSIUM 3.1* 3.7 4.0 - 3.9 CHLORIDE - 97* 98 - 109 CO2 25 27 27 - BUN 18 28* 43* - 65* CREATININE 3.22* 3.99* 4.77* - 2.74* GLUCOSE 82 105 99 - 99 CALCIUM 8.5 10.6* 10.5* - 8.7 - = values in this interval not displayed. Coagulation: Recent Labs Component Name 09/29/23171808/27/22 0439 08/26/22 0330 PT 12.2 11.8* 12.9 INR 0.9 0.9 1.0 Imaging - reviewed Assessment: Active Problems: Syncope and collapse Subdural hematoma (CMS/HCC) Fall, initial encounter IP CONSULT TO NEUROSURGERY IP CONSULT TO NEPHROLOGY IP CONSULT TO NEUROLOGY Plan: - Recommend admission to medicine team - Neurosurgery consulted recommend outpatient follow up with neurology for normal pressure hydrocephalus work up - Continue pulmonary toilet and incentive spirometer - Will follow along for tertiary survey Jacqueline Connor, Trauma & Acute Care Surgery 5:44 AM documented in this encounter Procedure Notes * Chris Fernandez MD - 10/04/2023 6:07 PM CST Procedure: Hemodialysis Indication: ESRD. This patient was seen and examined by me during dialysis today at 9:45 AM. Patient is stable, tolerating HD well. BP 126/54. BFR 400 ml/min UF goal 1,000 ml. Dialysate 2K and 2.5 Ca. OSOFT BI CONSULTANT * Howard Weston MD - 10/01/2023 12:48 PM CST Procedure: Hemodialysis Indication: ESRD. Accessed via left AVF This patient was seen and examined by me during dialysis today. Tolerated tx well 3k/2.5ca bath used pretx BP 150~160s and 140s as UF started 1 L total removal of fluid Appears to be optimized volume status Agreed with the care plan of antihypertensive at this time OSOFT BI CONSULTANT * Howard Weston MD - 09/30/2023 3:37 PM CST Procedure: Hemodialysis Indication: ESRD. Accessed via left AVF This patient was seen and examined by me during dialysis today. Tolerated tx well 3k/2.5ca bath used 1L uf BP trending down 155/58 mmHg as responding to UF Will return to her usual schedule tomorrow OSOFT BI CONSULTANT documented in this encounter Consult Notes * Fran Torres MSW - 10/03/2023 3:37 PM CSTAssociated Order(s): IP CONSULT TO GEOGRAPHY HEAD Care Coordination Progress Note Anticipated level of care at discharge: Snf - Skilled Facility: Anticipated level of care provider: [facility]: Anticipated Discharge Date: 10/05/23: Discharge Plan: SW to prepare for this pt to return to [facility] when med ready. Orientation Level: Disoriented to Situation;Oriented to Place;Oriented to Person;Oriented to Time (Pt requires cues for ): Family Support (Name and Phone): Extended Emergency Contact Information Primary Emergency Contact: Agnes Monroy Mobile Relation: Daughter Secondary Emergency Contact: SheppardStacy Mobile Relation: Daughter Transportation at Discharge: Ambulance: READMISSION RISK SCORE is 18 at 3:37 PM 10/03/2023.: Name: NIMO Tang [phone] OSOFT BI CONSULTANT * Earnestine Brand MD - 09/30/2023 10:43 AM CSTAssociated Order(s): IP CONSULT TO NEUROLOGY [facility] Department of Nephrology History & Physical Date of Admission: 09/29/2023 Length of Stay: 0 Date of Service: 09/30/2023 Consulting Service: Internal Medicine Reason for Consult: ESRD w/ HD HISTORY: Kirsty Rea is a 82 year old female w/ PMH significant for ESRD w/ HD TTS via LUE AVG, since 07/2022 after progression of her 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 The patient was evaluated by trauma and NSGY for SDH and there were no indicaitonof any surgical intervention. To note patient BP was elevated on admission most likely 2.2 to volume overload +/- uncontrolled HTN. The patient labs are consistent with ESRD patient. CT head with small SDH. We will continue to follow for HD. Cause of ESRD: Hypertension nephropathy- First HD 07/2022. Urine: No Access: RUE AVF Dialysis Center: [facility] Dialysis Days: TTS Dialysis Duration: 3 Hours 30 Minutes Dry Weight: NR Last Dialysis: 09/27/2023 Director Case: Dariel LARRY/BFR: Attempted to call Patient's dialysis center but no one picked up. We will try later. Review of Systems: Review of Systems Constitutional: Positive for malaise/fatigue. HENT: Negative. Eyes: Negative. Respiratory: Negative. Cardiovascular: Negative. Gastrointestinal: Negative. Genitourinary: Negative. Musculoskeletal: Negative. Skin: Negative. Neurological: Positive for dizziness, weakness and headaches. Endo/Heme/Allergies: Negative. Psychiatric/Behavioral: Negative. Past Medical History: Diagnosis Date ??? Anxiety ??? CKD (chronic kidney disease) stage 3, GFR 30-59 ml/min ([facility]/HCC) proteinuria; Director Case = Dr. Reyes ??? CVA (cerebral vascular accident) (CMS/HCC) 08/14/2022 ??? Dementia without behavioral disturbance (CMS/HCC) mild ??? ESRD on dialysis ([facility]) [facility] , [place] 07/06/23 ??? Gout ??? HTN (hypertension), benign ??? Hyperparathyroid bone disease (CMS/HCC) s/p surgery ??? Morphea ??? Osteopenia Past Surgical History: Procedure Laterality Date ??? Appendectomy ??? Breast Reduction ??? Cholecystectomy, Laparoscopic ??? HX FRACTURE TX ??? INSERTION GRAFT ARTERIO-VENOUS (AV) Left 06/15/2023 Left; LEFT UPPER ARM ARTERIOVENOUS GRAFT ??? OOPHORECTOMY 1971 ??? Parathyroidectomy 1999 Family History Problem Relation Name Age of Onset ??? Hypertension Father ??? Hypertension Brother Social History: Social History Socioeconomic History ??? Marital status: Spouse name: Not on file ??? Number of children: Not on file ??? Years of education: Not on file ??? Highest education level: Not on file Occupational History ??? Not on file Tobacco Use ??? Smoking status: Former Packs/day: 1 Types: Cigarettes Start date: 10/31/1965 Quit date: 10/31/1983 Years since quittin.9 ??? Smokeless tobacco: Never Vaping Use ??? Vaping Use: Never used Substance and Sexual Activity ??? Alcohol use: Yes Alcohol/week: 0.8 standard drinks of alcohol Types: 1 Standard drinks or equivalent per week Comment: occasionally ??? Drug use: No ??? Sexual activity: Not Currently Partners: Male Other Topics Concern ??? Not on file Social History Narrative ??? Not on file Social Determinants of Health Financial Resource Strain: Not on file Food Insecurity: Not on file Transportation Needs: Not on file Stress: Not on file Housing Stability: Not on file Allergies: Allergies Allergen Reactions ??? Ramipril Other Other reaction(s): Other (See Comments) Kidney Damage Kidney Damage Home Medications: No current facility-administered medications on file prior [...] Take 1 tablet by mouth once daily Hospital Medications: ??? 0.9% NaCl 3 mL Intracatheter q8h ??? busPIRone 5 mg Oral TID ??? escitalopram 5 mg Oral QDAY ??? iopamidol Intravenous Contrast - Once ??? labetalol 300 mg Oral BID ??? losartan 50 mg Oral QDAY ??? memantine 5 mg Oral BID PRN Meds: ??? SALINE LOCK, INSERT AND MAINTAIN AND 0.9% NaCl AND 0.9% NaCl ??? acetaminophen OBJECTIVE: Vitals: 09/30/23 0715 09/30/23 0916 09/30/23 0945 09/30/23 1015 BP: (!) 196/83 (!) 185/69 140/66 159/64 Pulse: 70 71 62 60 Resp: 21 18 16 Temp: SpO2: 92% 93% 95% 99% Weight: Height: Estimated body mass index is 19.2 kg/m?? as calculated from the following: Height as of this encounter: 1.753 m (5' 9 ). Weight as of this encounter: 59 kg (130 lb). No intake or output data in the 24 hours ending 09/30/23 1048 Physical Exam: Physical Exam Constitutional: Appearance: Normal appearance. HENT: Head: Normocephalic and atraumatic. Cardiovascular: Rate and Rhythm: Normal rate and regular rhythm. Musculoskeletal: General: Normal range of motion. Cervical back: Normal range of motion and neck supple. Neurological: Mental Status: She is alert. LABS: CBC: Recent Labs Component Name 12/01/23 0541 09/29/239 09/08/22 0148 WBC 7.7 9.2 7.2 HGB 7.7* 8.8* 8.6* HCT 24.6* 27.7* 26.1* MCV 93.9 93.9 87.6 BMP: Recent Labs Component Name 09/30/23 0541 09/29/239 06/15/23 1046 04/11/23 0736 09/08/22 0148 NA 137 139 - - 137 CL 96* 103 - - 99 CO2 29 25 27 - 23 BUN 25 18 28* - 39* CREATININE 4.52* 3.22* 3.99* - 2.69* - = values in this interval not displayed. Recent Labs Component Name 09/30/23 0541 09/29/23171806/15/23 1046 04/11/23 0736 09/08/22 0148 09/06/22 0701 CALCIUM 10.1 8.5 10.6* - 9.2 9.2 PHOS 3.5 - - - 3.5 6.6* - = values in this interval not displayed. LFT: Recent Labs Component Name 09/30/23 0541 09/29/23171809/08/22 0148 08/22/22 0747 08/19/22 1056 08/17/22 0405 03/09/22 1312 PROT 5.2* 5.1* - - 4.9* - - ALB 2.4* 2.4* 2.6* - - - - ALKPHOS 113 111 - - - - 72 AST 14 14 - - - - 14 ALT 9 10 - - - - 12 TBILI 0.5 0.5 - - - - - - = values in this interval not displayed. Recent Labs Component Name 03/09/22 1312 LIPASE 35 Recent Labs Component Name 08/20/22 0250 TSH 4.654 Coagulation: Recent Labs Component Name 09/29/23171808/27/22 0439 08/26/22 0330 PT 12.2 11.8* 12.9 INR 0.9 0.9 1.0 Cardiac markers: Recent Labs Component Name 08/22/22 0747 08/21/22 2340 08/21/22 1655 TROPONINI 0.037* 0.058* 0.054* ABG: Recent Labs Component Name 08/22/22 1801 08/22/22 0816 08/21/22 1930 [id number] 16* 16* 17* IMAGING: CT CHEST ABDOMEN PELVIS W CONT Result Date: 09/29/2023 Impression: 1.New age-indeterminate fractures of the right second, third, fourth anterior ribs, favored to be acute/subacute. Correlation with point tenderness. 2.Otherwise no evidence of osseous or visceral injury in the chest, abdomen or pelvis. > Dictated by Heath Wu MD, (radiologyresident). I, Juwan Aceves have personally reviewed and interpreted this examination/study. > Interpreting Provider: Juwan Aceves on 09/29/2023 7:[address] HEAD WO CONTRAST Result Date: 09/29/2023 IMPRESSION: 1. Small acute extra-axial hematoma along the right frontal convexity measuring up to 8to 9 mm in thickness with minimal mass effect on the adjacent sulci. No midline shift. No new foci of hemorrhage. 2. No evidence of acute fracture in the cervical, thoracic, or lumbar spine. Multilevel degenerative changes as described above. > Interpreting Provider: Rosa Davis MD on 09/29/2023 6:[address] CERVICAL SPINE WO CONTRAST Result Date: 09/29/2023 IMPRESSION: 1. Small acute extra-axial hematoma along the right frontal convexity measuring up to 8to 9 mm in thickness with minimal mass effect on the adjacent sulci. No midline shift. No new foci of hemorrhage. 2. No evidence of acute fracture in the cervical, thoracic, or lumbar spine. Multilevel degenerative changes as described above. > Interpreting Provider: Rosa Davis MD on 09/29/2023 6:[address] THORACIC SPINE WO CONTRAST Result Date: 09/29/2023 IMPRESSION: 1. Small acute extra-axial hematoma along the right frontal convexity measuring up to 8to 9 mm in thickness with minimal mass effect on the adjacent sulci. No midline shift. No new foci of hemorrhage. 2. No evidence of acute fracture in the cervical, thoracic, or lumbar spine. Multilevel degenerative changes as described above. > Interpreting Provider: Rosa Davis MD on 09/29/2023 6:[address] LUMBAR SPINE WO CONTRAST Result Date: 09/29/2023 IMPRESSION: 1. Small acute extra-axial hematoma along the right frontal convexity measuring up to 8to 9 mm in thickness with minimal mass effect on the adjacent sulci. No midline shift. No new foci of hemorrhage. 2. No evidence of acute fracture in the cervical, thoracic, or lumbar spine. Multilevel degenerative changes as described above. > Interpreting Provider: Rosa Davis MD on 09/29/2023 6:11 PM ASSESSMENT: Kirsty Rea is a 82 year old female w/ PMH significant for ESRD who presents for maintenance hemodialysis. PLAN: # ESRD w/ HD TTS See top of the note for HD information. - Access: LUE AVF - Volume Status: Euvolumic - strict intake and output - renally dose medications - plan for hemodialysis today # Hypertension - BP today is elevated. - continue home Labetalol. - Start Losartan. Can be started on D/C instead of Lisinopril. - Continue to monitor post dialysis. We will add amlodipine if continues to be HTN despite HD. # Anemia - Hgb - 7.7 - may be secondary to anemia of chronic disease secondary to ESRD - Iron panel 09/30/2023: negative. - transfuse pRBCs for Hgb<7 # Secondary Hyperparathyroidism - PTH 08/17/2022: 346.2 - Ca - 10 - Albumin - 2.4 - PO4 - 3.5 Patient will be seen and discussed with attending physician, Dr. Weston. Earnestine Chatterjee MD 09/30/2023 10:48 AM OSOFT BI CONSULTANT Associated attestation - Howard Weston MD - 09/30/2023 1:32 PM MICROSOFT BI CONSULTANT Patient was seen and examined with house-staff. I concur with findings, assessment, and plan. The note has been edited to reflect my assessment. Plan for HD today and tomorrow to optimize fluid status and subsequent better bp control. * Franck Mckeon APRN-SARWAT - 09/29/2023 7:46 PM CST Neurosurgery Consult Note Name: Kirsty Rea : 1940 Date of Admission:09/29/2023 Date of Consult:09/29/2023 7:47 PM Chief Complaint (CC): AMS HISTORY OF PRESENT ILLNESS (HPI): Patient is a 82 year old female with PMHx Gout, HTN, ESRD on HD, CVA presents to [facility] ED from OSH with altered mental status. Per pt's daughter, pt was at dialysis when the treatment team noticed thept was altered and sent her to OSH where CT Head revealed right frontal convexity SDH. Decision wasmade t transfer pt to [facility] for further workup and Neurosurgical evaluation. Pt's medications include no anticoagulants/antiplatelets Pt's daughter states that pt has been experiencing increased frequency in falls and exhibiting delusional thinking since her CVA in July of this year. [facility] NEUROSURGERY HIGH RISK VARIABLES Chronic Kidney Disease - ESRD Were these Present On Admission? Yes Past Medical History: Diagnosis Date ??? Anxiety ??? CKD (chronic kidney disease) stage 3, GFR 30-59 ml/min ([facility]) proteinuria; Director Case = Dr. Reyes ??? CVA (cerebral vascular accident) ([facility]/HCC) 08/14/2022 ??? Dementia without behavioral disturbance ([facility]/HCC) mild ??? ESRD on dialysis ([facility]) [facility] , [facility] 07/06/23 ??? Gout ??? HTN (hypertension), benign ??? Hyperparathyroid bone disease ([facility]/HCC) s/p surgery ??? Morphea ??? Osteopenia Past Surgical History: Procedure Laterality Date ??? Appendectomy ??? Breast Reduction ??? Cholecystectomy, Laparoscopic ??? HX FRACTURE TX ??? INSERTION GRAFT ARTERIO-VENOUS (AV) Left 06/15/2023 Left; LEFT UPPER ARM ARTERIOVENOUS GRAFT ??? OOPHORECTOMY 1971 ??? Parathyroidectomy 1999 Allergies Allergen Reactions ??? Ramipril Other Other reaction(s): Other (See Comments) Kidney Damage Kidney Damage Current Medications acetaminophen (Tylenol) 500 MG tablet Take 1 [...] half tablet Take by mouth once daily hydroCHLOROthiazide (Microzide) 12.5 MG capsule Take 1 (one) capsule by mouth once daily labetalol (Normodyne; Trandate) 300 MG tablet Take 1 (one) tablet by mouth 2 times daily lanthanum (Fosrenol) 1000 MG chew tablet Take 1 (one) tablet by mouth 3 times daily with meals lisinopril (Prinivil; Zestril) 20 MG tablet Take 1 (one) tablet by mouth 2 times daily memantine (Namenda) 5 MG tablet Take 1 (one) tablet by mouth 2 times daily Multiple Vitamins-Minerals (PRESERVISION AREDS 2 PO) Take 1 tablet by mouth once daily Current Facility-Administered Medications Medication ??? iopamidol (Isovue 370) 76 % contrast Current Outpatient Medications Medication ??? acetaminophen (Tylenol) 500 MG tablet ??? ALPRAZolam (Xanax) 0.25 MG tablet ??? busPIRone (Buspar) 5 MG tablet ??? epoetin deyanira-EPBX (Retacrit) 4000 UNIT/ML injection ??? escitalopram (Lexapro) 5 MG half tablet ??? hydroCHLOROthiazide (Microzide) 12.5 MG capsule ??? labetalol (Normodyne; Trandate) 300 MG tablet ??? lanthanum (Fosrenol) 1000 MG chew tablet ??? lisinopril (Prinivil; Zestril) 20 MG tablet ??? memantine (Namenda) 5 MG tablet ??? Multiple Vitamins-Minerals (PRESERVISION AREDS 2 PO) Social History Tobacco Use ??? Smoking status: Former Packs/day: 1 Types: Cigarettes Start date: 10/31/1965 Quit date: 10/31/1983 Years since quittin.9 ??? Smokeless tobacco: Never Substance Use Topics ??? Alcohol use: Yes Alcohol/week: 0.8 standard drinks of alcohol Types: 1 Standard drinks or equivalent per week Comment: occasionally Family History Problem Relation Name Age of Onset ??? Hypertension Father ??? Hypertension Brother REVIEW OF SYSTEMS Deferred PHYSICAL EXAM BP (!) 192/73 Pulse 71 Temp 97.9 ??F (36.6 ??C) Resp 22 Ht 1.753 m (5' 9 ) Wt 59 kg (130 lb) SpO2 92% General: calm, NAD Neuro: GCS 14 ([id number]), alert, oriented x3 (name, place, date), confused to situation, speech clear, delayed cognition, ou3r, eomi, face symmetric, tongue midline, LUE 4/5 otherwise strength 5/5 in major muscle groups, sensation intact LABORATORY Recent Labs Component Name 09/29/23 1719 WBC 9.2 HGB 8.8* HCT 27.7* PLTCOUNT 233 Recent Labs Component Name 09/29/23171806/15/23 1046 NA 139 - POTASSIUM 3.1* 3.7 CHLORIDE - 97* CO2 25 27 BUN 18 28* CREATININE 3.22* 3.99* GLUCOSE 82 105 Recent Labs Component Name 09/29/231718 INR 0.9 TEG: Uninhibited RADIOLOGY CT Head 17:03 09/29/2023 (preliminary read): 1. Small acute extra-axial hematoma along the right frontal convexity measuring up to 8 to 9 mm in thickness with minimal mass effect on the adjacent sulci. No midline shift. No new foci of hemorrhage. 2. No evidence of acute fracture in the cervical, thoracic, or lumbar spine. Multilevel degenerative changes as described above. Assessment: 82 year old female with PMHx Gout, HTN, ESRD on HD, CVA presents to [facility] ED from OSH with altered mental status. Per pt's daughter, pt was at dialysis when the treatment team noticed the pt was altered and sent her to OSH where CT Head revealed right frontal convexity SDH. Decision was made t transfer pt to [facility] for further workup and Neurosurgical evaluation. Pt's medications include no anticoagulants/antiplatelets Plan: Neurosurgery to sign off. No Neurosurgical interventions at this time. Symptoms and radiographic imaging concerning for possible NPH. Recommend follow up with Neurology for NPH workup. Case discussed with Dr. Davis at 19:41. Franck Mckeon APRN-LABORATORY SAMPLE CARRIER 09/29/2023 7:47 PM OSOFT BI CONSULTANT Associated attestation - Jesus Davis MD - 10/01/2023 1:40 PM MICROSOFT BI CONSULTANT I have seen and examined the patient with the resident/fellow and I agree with the findings and plan of care as documented. documented in this encounter ED Notes * Shayy Bynum RN - 09/30/2023 7:30 AM CST Gold team notified of patient's hypertension, no new orders received at this time OSOFT BI CONSULTANT * Shayy Bynum RN - 09/30/2023 7:24 AM CST Fall mats ordered for patient OSOFT BI CONSULTANT * Mamta Shaw RN - 09/30/2023 12:29 AM CST Sleeping resp even and unlabored. Vss. SR up x 2. CL in reach. Will continue to monitor. OSOFT BI CONSULTANT * Mamta Shaw RN - 09/29/2023 8:00 PM CST Pt resting comfortable in bed w daughter at bedside. MD also at bedside for assessment. MD given pthome medication list. SR up x 2 for pt safety. CL in reach. Will continue to closely monitor. OSOFT BI CONSULTANT * Jenaro Marshall MD - 09/29/2023 6:01 PM CST ASSUMED CARE NOTE Patient signed out to me by Dr. Atkins at 6:00 PM. Briefly, Kirsty Rea is a 82 year old female being evaluated s/p fall. Reportedly suffered GLF with LOC, transferred from OSH after CT imaging demonstrated right SDH. Trauma and neurosurgery have been consulted regarding pt case. Additional CT imaging demonstrated age-indeterminate right sided rib fractures. At this time the patient's condition is stable. Plan is likely admission pending design center consultant recommendations. Vitals: 09/29/23 1745 09/29/23 1800 09/29/23 1900 09/29/232131 BP: (!) 185/79 (!) 196/83 (!) 192/73 158/62 Pulse: 77 72 71 Resp: 18 21 22 Temp: SpO2: 94% 94% 92% Weight: Height: ED Course: 1829- Pt resting comfortably in NAD, VSS. 2130- Neurosurgery reports that the patient's intracranial bleeding is inoperable at this time and their service has no further recommendations. Trauma service also signs off, stating that patient's rib fractures appear non-acute. After further review of HPI, pt appears to have suffered syncope + collapse while at dialysis. Will page medicine for admission for further workup of syncopal episode. 2145- After discussion with medicine, the patient will be admitted to their service for further management of syncope + collapse. Admitting provider is Dr. Curry. I have reviewed the diagnostic findings with the patient and they have had an opportunity to ask me any questions they have about care,diagnosis, and reason for admission. The patient states understanding and agrees to admission. -Medicine has assumed care of this patient- Clinical Impression: 1. Subdural hematoma (CMS/HCC) 2. Fall, initial encounter 3. Syncope and collapse Disposition: Admit to medicine By signing my name below, I, Alejandro Shine, attest that this documentation has been prepared under the direction and in the presence of Dr. Marshall. Signed: Scott Sapp. I, Dr. Marshall, personally performed the services described in this documentation. All medical record entries made by the scribe were at my direction and in my presence. I have reviewed the chart andagree that the record reflects my personal performance and is accurate and complete. Electronically signed: Dr. Marshall. Jenaro Marshall MD Emergency Medicine [employer] * Alexis Atkins MD - 09/29/2023 4:08 PM CST ED ATTENDING NOTE History: Kirsty Rea is a 82 year old female with a past medical history of CVA, ESRD, Dementia, and HTN presenting to the ED as a transfer from [facility] c/o syncopal episode during dialysis. Patient reports that she has been feeling foggy for the past 3 days. Patient reports that she had a recent CVA in July. Patient fluctuates between lucidity and confusion. Patient reports that she hada recent fall and hit her cheek. OSH imaging is concerning for hematoma. HPI limited due to dementia. Past Medical History: Diagnosis Date ??? Anxiety ??? CKD (chronic kidney disease) stage 3, GFR 30-59 ml/min ([facility]) proteinuria; Director Case = Dr. Reyes ??? CVA (cerebral vascular accident) ([facility]) 08/14/2022 ??? Dementia without behavioral disturbance ([facility]) mild ??? ESRD on dialysis ([facility] ??? Gout ??? HTN (hypertension), benign ??? 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 Morphea ??? Osteopenia Past Surgical History: Procedure Laterality Date ??? Appendectomy ??? Breast Reduction ??? Cholecystectomy, Laparoscopic ??? HX FRACTURE TX ??? INSERTION GRAFT ARTERIO-VENOUS (AV) Left 06/15/2023 Left; LEFT UPPER ARM ARTERIOVENOUS GRAFT ??? OOPHORECTOMY 1971 ??? Parathyroidectomy 1999 Social History Socioeconomic History ??? Marital status: Spouse name: Not on file ??? Number of children: Not on file ??? Years of education: Not on file ??? Highest education level: Not on file Occupational History ??? Not on file Tobacco Use ??? Smoking status: Former Packs/day: 1 Types: Cigarettes Start date: 10/31/1965 Quit date: 10/31/1983 Years since quittin.9 ??? Smokeless tobacco: Never Vaping Use ??? Vaping Use: Never used Substance and Sexual Activity ??? Alcohol use: Yes Alcohol/week: 0.8 standard drinks of alcohol Types: 1 Standard drinks or equivalent per week Comment: occasionally ??? Drug use: No ??? Sexual activity: Not Currently Partners: Male Other Topics Concern ??? Not on file Social History Narrative ??? Not on file Social Determinants of Health Financial Resource Strain: Not on file Food Insecurity: Not on file Transportation Needs: Not on file Stress: Not on file Housing Stability: Not on file Review of Systems Unable to perform ROS: Dementia Constitutional: Negative for fever. Foggy HENT: Negative for congestion. Respiratory: Negative for cough and shortness of breath. Cardiovascular: Negative for chest pain. Gastrointestinal: Negative for diarrhea and vomiting. Genitourinary: Negative for hematuria. Musculoskeletal: Negative for back pain and joint pain. Skin: Negative for rash. Neurological: Negative for speech change, focal weakness and headaches. All other systems reviewed and are negative. Vitals: 09/29/23 1529 BP: 178/81 Pulse: 74 Resp: 16 Temp: 97.9 ??F (36.6 ??C) SpO2: 95% Weight: 59 kg (130 lb) Height: 1.753 m (5' 9 ) Physical Exam Vitals and nursing note reviewed. Exam conducted with a agricultural equipment salesperson present. Constitutional: General: She is not in acute distress. Appearance: Normal appearance. She is not ill-appearing, toxic-appearing or diaphoretic. HENT: Head: Normocephalic and atraumatic. Comments: Ecchymotic lesion to right cheek Nose: Nose normal. Mouth/Throat: Mouth: Mucous membranes are moist. Eyes: Extraocular Movements: Extraocular movements intact. Pupils: Pupils are equal, round, and reactive to light. Cardiovascular: Rate and Rhythm: Normal rate and regular rhythm. Pulses: Normal pulses. Heart sounds: Normal heart sounds. No murmur heard. Pulmonary: Effort: Pulmonary effort is normal. No respiratory distress. Breath sounds: Normal breath sounds. No stridor. No wheezing. Abdominal: General: There is no distension. Palpations: Abdomen is soft. Tenderness: There is no abdominal tenderness. There is no right CVA tenderness, left CVA tenderness, guarding or rebound. Musculoskeletal: General: Normal range of motion. Cervical back: Normal range of motion and neck supple. Right lower leg: No edema. Left lower leg: No edema. Skin: General: Skin is warm and dry. Capillary Refill: Capillary refill takes less than 2 seconds. Findings: No rash. Neurological: General: No focal deficit present. Mental Status: She is alert and oriented to person, place, and time. Cranial Nerves: Cranial nerves 2-12 are intact. No cranial nerve deficit. Sensory: Sensation is intact. Motor: Motor function is intact. No weakness. Coordination: Coordination is intact. Gait: Gait is intact. Psychiatric: Mood and Affect: Mood normal. MDM/Impression: Impression: Subdural hematoma vs CVA vs other Plan: CT head, labs, reassess - LABS: Labs Reviewed CBC W AUTO DIFFERENTIAL COMPREHENSIVE METABOLIC PANEL MAGNESIUM BLOOD TROPONIN-I HIGH SENSITIVE BASELINE + 1HR TEG 6 GLOBAL HEMOSTASIS W/ LYSIS TEG 6S PLATELET MAPPING PT-INR [facility] - IMAGING: CT HEAD WO CONTRAST (Results Pending) CT CERVICAL SPINE WO CONTRAST (Results Pending) No results found. Orders and Medicine administered during this encounter: Orders Placed This Encounter ??? CT HEAD WO CONTRAST ??? CT CERVICAL SPINE WO CONTRAST ??? CBC W AUTO DIFFERENTIAL ??? COMPREHENSIVE METABOLIC PANEL ??? MAGNESIUM BLOOD ??? TROPONIN-I HIGH SENSITIVE BASELINE + 1HR ??? TEG 6 GLOBAL HEMOSTASIS W/ LYSIS ??? TEG 6S PLATELET MAPPING ??? PT-INR [facility] ??? EKG 12-LEAD Medications - No data to display ED Course: Subdural hematoma revealed Clinical Impression: Sub dural hematoma Disposition: admit By signing my name below, I, Suni Haas, attest that this documentation has been prepared under the direction and in the presence of Dr. Atkins. Signed: Scott Jackson. I, Dr. Atkins, personally performed the services described in this documentation. All medical record entries made by the scribe were at my direction and in my presence. I have reviewed the chart and agree that the record reflects my personal performance and is accurate and complete. [employer] documented in this encounter Miscellaneous Notes * Coding Query - Heraclio Cabrera MD - 10/05/2023 8:03 AM CST DOCUMENTATION CLARIFICATION REQUEST Use the F2 function german to complete the query. Click ???Sign?? to file the note. TO: Dr. Cabrera FROM: Hilda Lujan RN CCDS , Email: [email or web address] Patient Name: Kirsty Rea Please review the clinical information below and clarify the condition being monitored/treated: ??? Severe protein calorie malnutrition, present on admission ??? Other degree of malnutrition, present on admission ??? Other, please specify ??? 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 BMI 17.74 o Treatment: Ensure Plus High Protein, aspiration precautions, renal diet, Dietitian plans to monitor PO intake, labs, weights, BM, and I&Os PROVIDER RESPONSE (Use F2 to respond) Severe protein calorie malnutrition, present on admission Please provide your clinical opinion and findings to support the diagnosis in the progress notes & carry it through into your discharge summary. THIS DOCUMENT IS MAINTAINED A PERMANENT PART OF THE MEDICAL RECORD. [employer] * Coding Query - Rogelio Benitez MD - 10/03/2023 1:03 PM CST DOCUMENTATION CLARIFICATION REQUEST Use the F2 function german to complete the query. Click ???Sign?? to file the note. TO: Dr. Benitez FROM: Hilda Lujan RN CCDS , Email: [email or web address] Patient Name: Kirsty Rea Please review the clinical information below and clarify the condition being monitored/treated: ??? Acute hypoxic respiratory failure ??? Other respiratory diagnosis, please specify ??? Other, please specify ??? Unable to determine The medical record reflects the following: o Risk Factors: former smoker, fall, traumatic subdural hemorrhage, right rib fractures o Clinical Findings: 10/01 Oxygen Saturation 92-100% on room air -> 97-98% on 2 liters 10/02 Oxygen Saturation 96% on room air -> 87% on room air -> 90% on 3-4 liters -> 89-95% on room air Rapid Response Team Note 12/3 was eating when all of the sudden starting having shortness of breath, respirations fast and labored, intercostal muscle being used, SPO2 normally in mid 90s on room air, now 92% on 6 liters via nasal cannula, over the course of 30 minutes titrated back to room air, work of breathing appears better RN Assessments 10/02 diminished breath sounds, coarse crackles, labored respirations, lip breathing,dyspnea at rest, shortness of breath/cough with eating, use of accessory muscles o Treatment: supplemental oxygen via nasal cannula, pulse oximetry monitoring, incentive spirometry, aspiration precautions, pulmonary toilet PROVIDER RESPONSE (Use F2 to respond) Diagnosis: Acute hypoxic respiratory failure - In the setting of smoking history, fall, traumatic subdural hemorrhage, right rib fractures - 97-98% on 2 liters - Managed with supplemental oxygen via nasal cannula and respiratory therapy as detailed above Please provide your clinical opinion and findings to support the diagnosis in the progress notes & carry it through into your discharge summary. THIS DOCUMENT IS MAINTAINED A PERMANENT PART OF THE MEDICAL RECORD. [employer] * Code/Rapid Response Event - Freeman Whelan RN - 10/02/2023 6:42 PM [employer] RAPID RESPONSE EVENT NOTE [address] [address] Patient: Kirsty Rea Location: [facility] : 1940 Reason for Admission: trauma R frontal hematoma Provider Teams Team Comment Primary Team Specialty Team Pager 1st Contact 1st Contact Number [facility] Red Team Yes Internal Medicine -- Event Date/Time: 10/02/2023 1805 Summary of Events: The Rapid Response Team (LAW ENFORCEMENT DIRECTOR) was paged for SOB. Patient sitting up in bed upon LAW ENFORCEMENT DIRECTOR arrival, respirations appear fast and labored, intercostal muscles being used. Primary RN reportpatient was eating when all of the sudden she started having SOB. Patients SPO2 normally mid 90s onroom air, now 92% on 6L NC. BP taken, noted to be high, 214/68. Medicine team (fall internship B) called to bedside. PRN hydralazine given. Patient denies chest pain. Chest xray obtained. Over the course of 30 minutes patient began to calm breathing down and titrated back down to room air. Patient WOB appears better, no further orders from medicine team. Patient now yelling at staff, appears anxious. Primary RN told to call if patient has more SOB or decompensates. Will continue to monitor patient. Vital Signs: Patient Vitals for the past 24 hrs: Temp Pulse Resp BP SpO2 10/02/23 1823 -- 106 -- (!) 195/76 -- 10/02/23 1814 -- 97 -- (!) 197/76 90 % 10/02/23 1808 -- 95 -- (!) 210/87 90 % 10/02/23 1805 -- 99 -- (!) 214/68 (!) 89 % 10/02/23 1756 -- 98 -- -- 90 % 10/02/23 1742 -- 94 -- -- 90 % 10/02/23 1741 -- -- -- -- (!) 87 % 10/02/23 1720 98.5 ??F (36.9 ??C) 85 20 172/64 96 % 10/02/23 1200 98.3 ??F (36.8 ??C) 74 20 137/64 96 % 10/02/23 0950 -- 72 -- 119/47 -- 10/02/23 0808 -- 80 -- (!) 196/74 -- 10/02/23 0805 98.2 ??F (36.8 ??C) 83 20 (!) 216/70 96 % 10/02/23 0356 -- 81 -- (!) 188/74 -- 10/01/23 2340 98 ??F (36.7 ??C) 79 -- (!) 193/67 97 % 10/01/232000 -- 80 -- (!) -- 10/01/231927 -- 80 18 (!) 98 % Outcome: LAW ENFORCEMENT DIRECTOR to be notified if patient has another SOB episode or decompensates. BP to be checked by primary RN. Freeman Whelan, RN Rapid Response Nurse [employer] documented in this encounter Plan of Treatment Upcoming Encounters Date Type Department Care Team (Late st Contact Info) Description 12/11/2024 10:30 AM [employer] Appointment [facility] [address] [facility] [address] [place] [address] Jarett Reinoso MD [address] [place], [place] [id number] Christine Benitez MD [address] [place] [phone] Keyshawn Krueger MD [address] [place] [address] Armando Ferro, [address] [address] [phone] Scheduled Orders Name Type Priority Associated Diagnoses Orde r Schedule CT HEAD WO CONTRAST Imaging Routine Neuroma of foot 1 Occurrences starting 09/30/2023 until 09/30/2024 Scheduled Referrals Name Type Priority Associated Diagnoses Order Schedule Ref to Neurosurgery - [facility] Outpatient Referral Routine Subdural hematoma (HCC) Ordered: 10/04/2023 Ref to Neurosurgery [facility] Outpatient Referral Routine Subdural hematoma (HCC) Ordered: 10/04/2023 Ref to Cardiology [facility] Outpatient Referral Routine Hypertensive emergency Ordered: 10/05/2023 documented as of this encounter Procedures Procedure Name Priority Date/Time Associated Diagnosis Comments ECHO COMPLETE W CONTRAST Routine 10/05/2023 10:41 AM [employer] Subdural hematoma (HCC) CALCIUM IONIZED WHOLE BLOOD AM Draw 10/05/2023 6:07 AM [employer] CBC W AUTO DIFFERENTIAL Routine 10/05/2023 6:07 AM [employer] Fall, initial encounter COMPREHENSIVE METABOLIC PANEL Routine 10/05/2023 6:07 AM [employer] Fall, initial encounter PHOSPHORUS BLOOD Routine 10/05/2023 6:07 AM [employer] Syncope and collapse MAGNESIUM BLOOD Routine 10/05/2023 6:07 AM [employer] Syncope and collapse CALCIUM IONIZED WHOLE BLOOD AM Draw 10/04/2023 7:49 AM [employer] HEMODIALYSIS INPATIENT Routine 7:04 AM [employer] PTH INTACT W/O CALCIUM Routine 4:57 AM [employer] VITAMIN D 25-HYDROXY AM Draw 10/04/2023 4:57 AM [employer] CBC W AUTO DIFFERENTIAL Routine 10/04/2023 4:57 AM [employer] Fall, initial encounter COMPREHENSIVE METABOLIC PANEL Routine 10/04/2023 4:57 AM [employer] Fall, initial encounter PHOSPHORUS BLOOD Routine 10/04/2023 4:57 AM [employer] Syncope and collapse MAGNESIUM BLOOD Routine 10/04/2023 4:57 AM [employer] Syncope and collapse CARDIAC EKG ORDER 10/03/2023 2:2 1 PM [employer] CBC W AUTO DIFFERENTIAL Routine 10/03/2023 5:16 AM [employer] Fall, initial encounter COMPREHENSIVE METABOLIC PANEL Routine 10/03/2023 5:16 AM [employer] Fall, initial encounter PHOSPHORUS BLOOD Routine 10/03/2023 5:16 AM [employer] Syncope and collapse MAGNESIUM BLOOD Routine 10/03/2023 5:16 AM [employer] Syncope and collapse XR CHEST 1VW PORTABLE STAT 10/02/2023 6:36 PM [employer] Hypertensive emergency CBC W AUTO DIFFERENTIAL Routine 10/02/2023 7:33 AM [employer] Fall, initial encounter COMPREHENSIVE METABOLIC PANEL Routine 10/02/2023 7:33 AM [employer] Fall, initial encounter PHOSPHORUS BLOOD Routine 10/02/2023 7:33 AM [employer] Syncope and collapse MAGNESIUM BLOOD Routine 10/02/2023 7:33 AM [employer] Syncope and collapse CBC W AUTO DIFFERENTIAL Routine 10/01/2023 5:36 AM [employer] Fall, initial encounter COMPREHENSIVE METABOLIC PANEL Routine 10/01/2023 5:36 AM [employer] Fall, initial encounter PHOSPHORUS BLOOD Routine 10/01/2023 5:36 AM [employer] Syncope and collapse MAGNESIUM BLOOD Routine 10/01/2023 5:36 AM [employer] Syncope and collapse HEMODIALYSIS INPATIENT Routine 3 6:01 PM [employer] HEMODIALYSIS INPATIENT Routine 3 11:14 AM [employer] SARS-COV-2 (COVID-19)+INFLU A+B PCR RAPID STAT 09/30/2023 9:48 AM [employer] Syncope and collapse CBC W AUTO DIFFERENTIAL STAT 09/30/2023 5:41 AM [employer] Fall, initial encounter COMPREHENSIVE METABOLIC PANEL STAT 09/30/2023 5:41 AM [employer] Fall, initial encounter PHOSPHORUS BLOOD STAT 09/30/2023 5:41 AM [employer] Syncope and collapse MAGNESIUM BLOOD STAT 09/30/2023 5:41 AM [employer] Syncope and collapse HEPATITIS B SURFACE ANTIGEN W RFLX CONFIRMATION STAT 09/30/2023 5:41 AM [employer] ESRD (end stage renal disease) (HCC) IRON + TRANSFERRIN PANEL STAT 09/30/2023 5:41 AM [employer] Anemia, unspecified type FERRITIN JABARI 09/30/2023 5:41 AM [employer] Anemia, unspecified type TROPONIN-I HIGH SENSITIVE REFLEX 1HOUR Timed 09/29/2023 6:24 PM [employer] EKG 12-LEAD STAT 09/29/2023 5:23 PM [employer] Fall, initial encounter TEG 6 GLOBAL HEMOSTASIS W/ LYSIS STAT 09/29/2023 5:19 PM [employer] CONSULTANT TEG 6S PLATELET MAPPING STAT 09/29/2023 5:19 PM [employer] CONSULTANT PT-INR [facility] STAT 09/29/2023 5:19 PM [employer] CONS[employer]ANT TROPONIN-I HIGH SENSITIVE BASELINE + 1HR STAT 09/29/2023 5:19 PM [employer] CONS[employer] CBC W AUTO DIFFERENTIAL STAT 09/29/2023 5:19 PM [employer] CONS[employer] COMPREHENSIVE METABOLIC PANEL STAT 09/29/2023 5:19 PM [employer] MAGNESIUM BLOOD STAT 09/29/2023 5:[address] [address] [address] CHEST ABDOMEN PELVIS W CONT STAT 09/29/2023 5:03 PM [employer] Fall, initial encounter CT LUMBAR SPINE WO CONTRAST STAT 09/29/2023 5:03 PM [employer] CONSULTANT Fall, initial encounter CT THORACIC SPINE WO CONTRAST STAT 09/29/2023 5:03 PM [employer] CONS[employer] Fall, initial encounter CT CERVICAL SPINE WO CONTRAST STAT 09/29/2023 5:03 PM [employer] CONS[employer]ANT Fall, initial encounter CT HEAD WO CONTRAST STAT 09/29/2023 5 :03 PM [employer] Fall, initial encounter documented in this encounter Results * ECHO COMPLETE W CONTRAST (10/05/2023 10:41 AM [employer]ANT) BSA 1.2801145 m2 [facility] CV FUJ I PACS LV [...] 6.9 5.9 - 8.3 cm [facility] 2.6 cm [facility] CV [facility] I PACS RVOT VTI 19.273 cm [facility] CV [facility] I PACS TV S' carlton 13.315 cm/s [facility] CV [facility] I PACS TAPSE 2.377 1.7 cm [facility] CV [facility] I PACS RVOT pk carlton 0.84 m/s [facility] CV F U PACS RA area 14.437 cm2 [facility] CV [facility] I PACS AV mn grad 6 mmHg SSM CV FU JI PACS AV pk grad 10 mmHg SSM CV FU JI PACS AV mn carlton 1.18 m/s [facility] CV [facility] I PACS AV pk carlton 1.62 m/s [facility] CV [facility] I PACS AV VTI 35 cm [facility] CV [facility] I PACS LVOT pk grad 5.431 mmHg [facility] LVOT VTI 25.533 cm [facility] CV [facility] I PACS AV area cont VTI 2.4 cm2 [facility] area pk carlton 2.3 cm2 [facility] C [facility] AV Doppler carlton index pk carlton 0.72 [facility] Dimensionless Index 0.73 [facility] MV mn grad 2 mmHg SSM CV FU JI PACS MV pk grad 6 mmHg SSM CV FU JI PACS MV mn carlton 0.65 m/s SSM CV [facility] I PACS MV pk carlton 126.125 cm/s SSM CV FUJ I PACS MV PHT 104 ms SSM CV [facility] I PACS MV area PHT 2.11 cm2 [...] Index 32 ml/m2 SSM CV FUJI PACS [id number] 6.504 cm SSM CV FUJ I PACS [id number] 7.107 cm SSM CV FUJ I PACS [...] Laterality Modality Ultrasound Narrative 10/05/2023 11:06 AM [employer] ?Left??Ventricle: Left ventricle size is normal. Mildly [...] CALCIUM IONIZED WHOLE BLOOD (10/05/2023 6:07 AM [employer] BI CONSULTANT) Calcium Ionized 1.28 mmol/L 10/05/2023 6:16 AM [facility] pH 7.50(H) 7.35 - 7.45 pH 10/05/2023 6:16 AM [facility] Ionized Calcium pH Adjusted 1.33 1.19 - 1.34 mmol/L 10/05/2023 6:16 AM [facility] Blood BLOOD SPECIMEN / Unknown Lab Venipuncture / Unknown 10/05/2023 6:07 AM [employer] 10/05/2023 6:12 AM [facility] Rogelio Benitez MD LAB - CHEMISTRY PATRICIA CASIANO [address] [address], [facility] [phone] * PHOSPHORUS BLOOD (10/05/2023 6:07 AM [employer]SULT[employer]) Phosphorus 3.1 2.9 - 5.1 mg/dL 10/05/2023 6:48 AM [employer] BI CONSULT[employer] [facility] Blood BLOOD SPECIMEN / Unknown Lab Venipuncture / Unknown 10/05/2023 6:07 AM [employer] 10/05/2023 6:34 AM [employer] Jenaro Marshall MD LAB - CHEMISTRY PATRICIA CASIANO Performing Organization Address [facility]/ZIP Co de Phone Number [address] [address], [place] [phone] * MAGNESIUM BLOOD (10/05/2023 6:07 AM [employer]SULTANT) Magnesium 1.8 1.6 - 2.6 mg/dL 10/05/2023 6:48 AM [facility] Blood BLOOD SPECIMEN / Unknown Lab Venipuncture / Unknown 10/05/2023 6:07 AM [employer] 10/05/2023 6:34 AM [employer] Jenaro Marshall MD LAB - CHEMISTRY PATRICIA CASIANO Performing Organization Address [facility]/ZIP Co de Phone Number [address] [address], [place] [phone] * (ABNORMAL) COMPREHENSIVE METABOLIC PANEL (10/05/2023 6:07 AM [employer]ANT) BUN 20 7 - 26 mg/dL 10/05/2023 6:54 AM [facility] Creatinine 2.99(H) 0.56 - 0.96 mg/dL 10/05/2023 6:54 AM [facility] Sodium 139 136 - 145 mmol/L 10/05/2023 6:54 AM [facility] Potassium 3.6 3.5 - 4.5 mmol/L 10/05/2023 6:54 AM [facility] Chloride 98 98 - 107 mmol/L 10/05/2023 6:54 AM [facility] CO2 32(H) 22 - 29 mmol/L 10/05/2023 6:54 AM [facility] Glucose 93 70 - 115 mg/dL 10/05/2023 6:54 AM [facility] [facility] Calcium 9.4 8.4 - 10.2 mg/dL 10/05/2023 6:54 AM [facility] Protein Total 5.4(L) 6.0 - 8.3 g/dL 10/05/2023 6:54 AM [facility] Albumin 2.6(L) 3.4 - 5.0 g/dL 10/05/2023 6:54 AM [facility] Bilirubin Total 0.5 0.2 - 1.2 mg/dL 10/05/2023 6:54 AM [facility] Alkaline Phosphatase 127 40 - 150 U/L 10/05/2023 6:54 AM [facility] ALT 14 5 - 55 U/L 10/05/2023 6:54 AM [facility] AST 16 5 - 34 U/L 10/05/2023 6:54 AM [facility] Anion Gap 9 6 - 16 10/05/2023 6:54 AM [facility] BUN/Creatinine Ratio 7 7 - 23 10/05/2023 6:54 AM [facility] Osmolality Calculated 290 275 - 295 mOsm/kg 10/05/2023 6:54 AM [facility] Albumin/Globulin Ratio 0.9(L) 1.1 - 2.3 10/05/2023 6:54 AM [facility] eGFR by CKD-EPI 15(L) >=90 mL/min/1.7 3 m2 10/05/2023 6:54 AM [facility] Blood BLOOD SPECIMEN / Unknown Lab Venipuncture / Unknown 10/05/2023 6:07 AM [facility] 10/05/2023 6:34 AM [facility] Jenaro Marshall MD LAB - CHEMISTRY PATRICIA CASIANO [facility] Organization Address City/State/ZIP Co de Phone Number [facility] [address] [place] [address] [phone] * (ABNORMAL) CBC W AUTO DIFFERENTIAL (10/05/2023 6:07 AM [facility]) WBC 6.2 3.5 - 10.5 10? 3 /uL 10/05/2023 6:29 AM [facility] RBC 2.88(L) 3.80 - 5.20 10? 6 /uL 10/05/2023 6:29 AM [facility] Hemoglobin 8.4(L) 12.0 - 15.6 g/dL 10/05/2023 6:29 AM [facility] Hematocrit 26.8(L) 35.0 - 45.0 % 10/05/2023 6:29 AM [facility] MCV 93.1 80.7 - 98.3 fL 10/05/2023 6:29 AM [facility] MCH 29.2 26.7 - 34.0 pg 10/05/2023 6:29 AM [facility] MCHC 31.3 30.8 - 35.9 g/dL 10/05/2023 6:29 AM [facility] RDW-SD 50.0 36.0 - 50.0 fL 10/05/2023 6:29 AM [facility] RDW-CV 14.7 11.2 - 14.8 % 10/05/2023 6:29 AM [facility] Platelet Count 225 150 - 400 10? 3 /uL 10/05/2023 6:29 AM [facility] MPV 8.7(L) 9.4 - 12.9 fL 10/05/2023 6:29 AM [facility] nRBC Absolute 0.00 0 10? 3 /uL 10/05/2023 6:29 AM [facility] nRBC Auto 0.0 0 /100 WBC 10/05/2023 6:29 AM [facility] Neutrophils % 51.0 35.0 - 70.0 % 10/05/2023 6:29 AM [facility] Lymphocytes % 29.6 20.0 - 43.0 % 10/05/2023 6:29 AM [facility] Monocytes % 15.9(H) 5.0 - 13.0 % 10/05/2023 6:29 AM [facility] Eosinophils % 1.9 0.0 - 6.0 % 10/05/2023 6:29 AM [facility] Basophil % 0.8 0.0 - 2.0 % 10/05/2023 6:29 AM [facility] Neutrophils Absolute 3.17 1.60 - 7.00 10? 3 /uL 10/05/2023 6:29 AM [facility] Lymphocyte Absolute 1.84 1.10 - 3.90 10? 3 /uL 10/05/2023 6:29 AM [facility] Monocytes Absolute 0.99 0.26 - 1.07 10? 3 /uL 10/05/2023 6:29 AM [facility] Eosinophils Absolute 0.12 0.00 - 0.47 10? 3 /uL 10/05/2023 6:29 AM [facility] Basophils Absolute 0.05 0.00 - 0.08 10? 3 /uL 10/05/2023 6:29 AM [facility] Immature Granulocytes % 0.8 0.0 - 1.0 % 10/05/2023 6:29 AM [facility] Immature Granulocytes Absolute 0.05 10/05/2023 6:29 AM [facility] Blood BLOOD SPECIMEN / Unknown Lab Venipuncture / Unknown 10/05/2023 6:07 AM [facility] 10/05/2023 6:16 AM [facility] Jenaro Marshall MD LAB - HEMATOLOGY ORD ERABLES Performing Organization Address City/State/[facility] Co de Phone Number [facility] [address] [place] [id number] [phone] * (ABNORMAL) CALCIUM IONIZED WHOLE BLOOD (10/04/2023 7:49 AM [facility]) Calcium Ionized 1.16 mmol/L 10/04/2023 9:35 AM [facility] pH 7.51(H) 7.35 - 7.45 pH 10/04/2023 9:35 AM [facility] Ionized Calcium pH Adjusted 1.21 1.19 - 1.34 mmol/L 10/04/2023 9:35 AM [facility] Blood BLOOD SPECIMEN / Unknown Lab Venipuncture / Unknown 10/04/2023 7:49 AM [facility] 10/04/2023 9:33 AM [facility] Rogelio Benitez MD LAB - CHEMISTRY PATRICIA CASIANO Performing Organization Address City/[facility]/ZIP Co de Phone Number [address] [address], [place] [phone] * PHOSPHORUS BLOOD (10/04/2023 4:57 AM [facility]) Phosphorus 3.9 2.9 - 5.1 mg/dL 10/04/2023 6:24 AM [facility] Blood BLOOD SPECIMEN / Unknown Lab Venipuncture / Unknown 10/04/2023 4:57 AM [facility] 10/04/2023 5:50 AM [facility] Jenaro Marshall MD LAB - CHEMISTRY PATRICIA CASIANO Performing Organization Address City/[facility]/ZIP Co de Phone Number [address] [address], [place] [phone] * MAGNESIUM BLOOD (10/04/2023 4:57 AM [facility]) Magnesium 1.9 1.6 - 2.6 mg/dL 10/04/2023 6:24 AM [facility] Blood BLOOD SPECIMEN / Unknown Lab Venipuncture / Unknown 10/04/2023 4:57 AM [facility] 10/04/2023 5:50 AM [facility] Jenaro Marshall MD LAB - CHEMISTRY PATRICIA CASIANO Performing Organization Address City/[facility]/ZIP Co de Phone Number [address] [address], [place] [phone] * (ABNORMAL) COMPREHENSIVE METABOLIC PANEL (10/04/2023 4:57 AM [facility]) BUN 34(H) 7 - 26 mg/dL 10/04/2023 6:24 AM [facility] Creatinine 5.30(H) 0.56 - 0.96 mg/dL 10/04/2023 6:24 AM [facility] Sodium 141 136 - 145 mmol/L 10/04/2023 6:24 AM [facility] Potassium 4.7(H) 3.5 - 4.5 mmol/L 10/04/2023 6:24 AM [facility] Chloride 103 98 - 107 mmol/L 10/04/2023 6:24 AM [facility] CO2 26 22 - 29 mmol/L 10/04/2023 6:24 AM [facility] Glucose 92 70 - 115 mg/dL 10/04/2023 6:24 AM [facility] Calcium 10.0 8.4 - 10.2 mg/dL 10/04/2023 6:24 AM [facility] Protein Total 5.5(L) 6.0 - 8.3 g/dL 10/04/2023 6:24 AM [facility] Albumin 2.5(L) 3.4 - 5.0 g/dL 10/04/2023 6:24 AM [facility] Bilirubin Total 0.6 0.2 - 1.2 mg/dL 10/04/2023 6:24 AM [facility] Alkaline Phosphatase 130 40 - 150 U/L 10/04/2023 6:24 AM [facility] ALT 14 5 - 55 U/L 10/04/2023 6:24 AM [facility] AST 16 5 - 34 U/L 10/04/2023 6:24 AM [facility] Anion Gap 12 6 - 16 10/04/2023 6:24 AM [facility] BUN/Creatinine Ratio 6(L) 7 - 23 10/04/2023 6:24 AM [facility] Osmolality Calculated 299(H) 275 - 295 mOsm/kg 10/04/2023 6:24 AM [facility] Albumin/Globulin Ratio 0.8(L) 1.1 - 2.3 10/04/2023 6:24 AM [facility] eGFR by CKD-EPI 8(L) >=90 mL/min/1.7 3 m2 10/04/2023 6:24 AM [facility] Blood BLOOD SPECIMEN / Unknown Lab Venipuncture / Unknown 10/04/2023 4:57 AM [facility] 10/04/2023 5:50 AM [facility] Jenaro Marshall MD LAB - CHEMISTRY PATRICIA Garcia Organization Address City/State/ZIP Co de Phone Number [facility] [address] [place] [phone], [facility] [phone] * (ABNORMAL) CBC W AUTO DIFFERENTIAL (10/04/2023 4:57 AM [facility]) WBC 4.7 3.5 - 10.5 10? 3 /uL 10/04/2023 6:30 AM [facility] RBC 2.83(L) 3.80 - 5.20 10? 6 /uL 10/04/2023 6:30 AM [facility] Hemoglobin 8.3(L) 12.0 - 15.6 g/dL 10/04/2023 6:30 AM [facility] Hematocrit 26.4(L) 35.0 - 45.0 % 10/04/2023 6:30 AM [facility] MCV 93.3 80.7 - 98.3 fL 10/04/2023 6:30 AM [facility] MCH 29.3 26.7 - 34.0 pg 10/04/2023 6:30 AM [facility] MCHC 31.4 30.8 - 35.9 g/dL 10/04/2023 6:30 AM [facility] RDW-SD 49.1 36.0 - 50.0 fL 10/04/2023 6:30 AM [facility] RDW-CV 14.5 11.2 - 14.8 % 10/04/2023 6:30 AM [facility] Platelet Count 239 150 - 400 10? 3 /uL 10/04/2023 6:30 AM [facility] MPV 8.7(L) 9.4 - 12.9 fL 10/04/2023 6:30 AM [facility] nRBC Absolute 0.00 0 10? 3 /uL 10/04/2023 6:30 AM [facility] nRBC Auto 0.0 0 /100 WBC 10/04/2023 6:30 AM [facility] Neutrophils % 56.9 35.0 - 70.0 % 10/04/2023 6:30 AM [facility] Lymphocytes % 26.2 20.0 - 43.0 % 10/04/2023 6:30 AM [facility] Monocytes % 12.9 5.0 - 13.0 % 10/04/2023 6:30 AM [facility] Eosinophils % 2.2 0.0 - 6.0 % 10/04/2023 6:30 AM [facility] Basophil % 0.9 0.0 - 2.0 % 10/04/2023 6:30 AM [facility] Neutrophils Absolute 2.65 1.60 - 7.00 10? 3 /uL 10/04/2023 6:30 AM [facility] Lymphocyte Absolute 1.22 1.10 - 3.90 10? 3 /uL 10/04/2023 6:30 AM [facility] Monocytes Absolute 0.60 0.26 - 1.07 10? 3 /uL 10/04/2023 6:30 AM [facility] Eosinophils Absolute 0.10 0.00 - 0.47 10? 3 /uL 10/04/2023 6:30 AM [facility] Basophils Absolute 0.04 0.00 - 0.08 10? 3 /uL 10/04/2023 6:30 AM [facility] Immature Granulocytes % 0.9 0.0 - 1.0 % 10/04/2023 6:30 AM [facility] Immature Granulocytes Absolute 0.04 10/04/2023 6:30 AM [facility] Blood BLOOD SPECIMEN / Unknown Lab Venipuncture / Unknown 10/04/2023 4:57 AM [facility] 10/04/2023 5:50 AM [facility] Jenaro Marshall MD LAB - HEMATOLOGY ORD ERABLES [facility] [address] [place] [address], [facility] [phone] * VITAMIN D 25-HYDROXY (10/04/2023 4:57 AM [facility]) Vitamin D, 25 Hydroxy 30.7 30.0 - 80.0 ng/mL 10/04/2023 6:38 AM [facility] Comment: The recommendations for 25-Hydroxy Vitamin [...] Lab Venipuncture / Unknown 10/04/2023 4:57 AM [facility] 10/04/2023 5:50 AM [facility] Rogelio Benitez MD LAB - CHEMISTRY PATRICIA CASIANO Performing Organization Address [facility]/ZIP Co de Phone Number [address] [address], [facility] [phone] * (ABNORMAL) PTH INTACT W/O CALCIUM (10/04/2023 4:57 AM [facility]) PTH Intact 162.0(H) 8.0 - 77.0 pg/mL 10/04/2023 6:22 AM [facility] Blood BLOOD SPECIMEN / Unknown Lab Venipuncture / Unknown 10/04/2023 4:57 AM [facility] 10/04/2023 5:45 AM [facility] Rogelio Benitez MD LAB - CHEMISTRY PATRICIA CASIANO Performing Organization Address City/[facility]/ZIP Co de Phone Number [address] [address], [facility] [phone] * CARDIAC EKG ORDER (10/03/2023 2:21 PM [facility]) Narrative 10/03/2023 2:21 PM [facility] Ordered by an unspecified provider. Scanned Document CARDIAC SERVICES ORD ERABLES * PHOSPHORUS BLOOD (10/03/2023 5:16 AM [facility]) Phosphorus 3.7 2.9 - 5.1 mg/dL 10/03/2023 7:13 AM [facility] Blood BLOOD SPECIMEN / Unknown Lab Venipuncture / Unknown 10/03/2023 5:16 AM [facility] 10/03/2023 6:34 AM [facility] Jenaro Marshall MD LAB - CHEMISTRY PATRICIA CASIANO [address] [address], [facility] [phone] * MAGNESIUM BLOOD (10/03/2023 5:16 AM [facility]) Pathologist [facility] Magnesium 1.8 1.6 - 2.6 mg/dL 10/03/2023 7:13 AM [facility] Blood BLOOD SPECIMEN / Unknown Lab Venipuncture / Unknown 10/03/2023 5:16 AM [facility] 10/03/2023 6:34 AM [facility] Jenaro Marshall MD LAB - CHEMISTRY PATRICIA CASIANO [address] [address], [facility] [phone] * (ABNORMAL) COMPREHENSIVE METABOLIC PANEL (10/03/2023 5:16 AM [facility]) BUN 25 7 - 26 mg/dL 10/03/2023 7:26 AM [facility] Creatinine 4.24(H) 0.56 - 0.96 mg/dL 10/03/2023 7:26 AM [facility] Sodium 141 136 - 145 mmol/L 10/03/2023 7:26 AM [facility] Potassium 3.8 3.5 - 4.5 mmol/L 10/03/2023 7:26 AM [facility] Chloride 104 98 - 107 mmol/L 10/03/2023 7:26 AM [facility] CO2 29 22 - 29 mmol/L 10/03/2023 7:26 AM [facility] Glucose 114 70 - 115 mg/dL 10/03/2023 7:26 AM [facility] Calcium 10.1 8.4 - 10.2 mg/dL 10/03/2023 7:26 AM [facility] Protein Total 5.8(L) 6.0 - 8.3 g/dL 10/03/2023 7:26 AM [facility] Albumin 2.7(L) 3.4 - 5.0 g/dL 10/03/2023 7:26 AM [facility] Bilirubin Total 0.5 0.2 - 1.2 mg/dL 10/03/2023 7:26 AM [facility] Alkaline Phosphatase 136 40 - 150 U/L 10/03/2023 7:26 AM [facility] ALT 15 5 - 55 U/L 10/03/2023 7:26 AM [facility] AST 17 5 - 34 U/L 10/03/2023 7:26 AM [facility] Anion Gap 8 6 - 16 10/03/2023 7:26 AM [facility] BUN/Creatinine Ratio 6(L) 7 - 23 10/03/2023 7:26 AM [facility] Osmolality Calculated 297(H) 275 - 295 mOsm/kg 10/03/2023 7:26 AM [facility] Albumin/Globulin Ratio 0.9(L) 1.1 - 2.3 10/03/2023 7:26 AM [facility] eGFR by CKD-EPI 10(L) >=90 mL/min/1.7 3 m2 10/03/2023 7:26 AM [facility] Blood BLOOD SPECIMEN / Unknown Lab Venipuncture / Unknown 10/03/2023 5:16 AM [facility] 10/03/2023 6:34 AM [facility] Jenaro Marshall MD LAB - CHEMISTRY PATRICIA CASIANO [facility] Organization Address City/State/ZIP Co de Phone Number [facility] [address] [place] [address], [facility] [phone] * (ABNORMAL) CBC W AUTO DIFFERENTIAL (10/03/2023 5:16 AM [facility]) WBC 11.4(H) 3.5 - 10.5 10? 3 /uL 10/03/2023 7:16 AM [facility] RBC 2.97(L) 3.80 - 5.20 10? 6 /uL 10/03/2023 7:16 AM [facility] Hemoglobin 8.6(L) 12.0 - 15.6 g/dL 10/03/2023 7:16 AM [facility] Hematocrit 27.9(L) 35.0 - 45.0 % 10/03/2023 7:16 AM [facility] MCV 93.9 80.7 - 98.3 fL 10/03/2023 7:16 AM [facility] MCH 29.0 26.7 - 34.0 pg 10/03/2023 7:16 AM [facility] MCHC 30.8 30.8 - 35.9 g/dL 10/03/2023 7:16 AM [facility] RDW-SD 49.0 36.0 - 50.0 fL 10/03/2023 7:16 AM [facility] RDW-CV 14.4 11.2 - 14.8 % 10/03/2023 7:16 AM [facility] Platelet Count 275 150 - 400 10? 3 /uL 10/03/2023 7:16 AM [facility] MPV 8.9(L) 9.4 - 12.9 fL 10/03/2023 7:16 AM [facility] nRBC Absolute 0.00 0 10? 3 /uL 10/03/2023 7:16 AM [facility] nRBC Auto 0.0 0 /100 WBC 10/03/2023 7:16 AM [facility] Neutrophils % 77.3(H) 35.0 - 70.0 % 10/03/2023 7:16 AM [facility] Lymphocytes % 11.7(L) 20.0 - 43.0 % 10/03/2023 7:16 AM [facility] Monocytes % 8.7 5.0 - 13.0 % 10/03/2023 7:16 AM [facility] Eosinophils % 0.8 0.0 - 6.0 % 10/03/2023 7:16 AM [facility] Basophil % 0.7 0.0 - 2.0 % 10/03/2023 7:16 AM [facility] Neutrophils Absolute 8.79(H) 1.60 - 7.00 10? 3 /uL 10/03/2023 7:16 AM [facility] Lymphocyte Absolute 1.33 1.10 - 3.90 10? 3 /uL 10/03/2023 7:16 AM [facility] Monocytes Absolute 0.99 0.26 - 1.07 10? 3 /uL 10/03/2023 7:16 AM [facility] Eosinophils Absolute 0.09 0.00 - 0.47 10? 3 /uL 10/03/2023 7:16 AM [facility] Basophils Absolute 0.08 0.00 - 0.08 10? 3 /uL 10/03/2023 7:16 AM [facility] Immature Granulocytes % 0.8 0.0 - 1.0 % 10/03/2023 7:16 AM [facility] Immature Granulocytes Absolute 0.09 10/03/2023 7:16 AM [facility] Blood BLOOD SPECIMEN / Unknown Lab Venipuncture / Unknown 10/03/2023 5:16 AM [facility] 10/03/2023 6:34 AM [facility] Jenaro Marshall MD LAB - HEMATOLOGY ORD ERABLES [facility] [address] [place] [address], [facility] [phone] * XR CHEST 1VW PORTABLE (10/02/2023 6:36 PM [facility]) Anatomical Region Laterality Modality Chest Radiographic Marychuy ging 10/03/2023 7:34 AM [facility] Impressions 10/03/2023 11:39 AM [facility] IMPRESSION: Mild left base atelectasis. Report dictated by Ranjith Valdez MD, MD (cmo & president). Debby Hester MD have personally reviewed and interpreted this examination/study. > Interpreting Provider: Debby James MD on 10/03/2023 11:39 AM Narrative 10/03/2023 11:39 AM [facility] PROCEDURE: ??XR CHEST 1VW PORTABLE, DATE/TIME OF EXAM: ??10/02/2023 6:36 PM, LOCATION ??[facility] INDICATION: I16.1: Hypertensive emergency [...] PORTABLE, DATE/TIME OF EXAM: 10/02/2023 6:36PM, LOCATION [facility] INDICATION: I16.1: Hypertensive emergency [...] Report dictated by Ranjith Valdez MD, MD (cmo & president). Debby Hester MD have personally reviewed and interpreted this examination/study. > Interpreting Provider: Debby James MD on 10/03/2023 11:39 AM Rogelio Benitez MD DIAGNOSTIC IMAGING O RDERABLES * PHOSPHORUS BLOOD (10/02/2023 7:33 AM [facility]) Phosphorus 3.3 2.9 - 5.1 mg/dL 10/02/2023 8:36 AM [facility] Blood BLOOD SPECIMEN / Unknown Lab Venipuncture / Unknown 10/02/2023 7:33 AM [facility] 10/02/2023 8:03 AM [facility] Jenaro Marshall MD LAB - CHEMISTRY PATRICIA CASIANO [facility] [address] [place] [phone], [place] [phone] * MAGNESIUM BLOOD (10/02/2023 7:33 AM [facility]) Pathologist [facility] Magnesium 1.8 1.6 - 2.6 mg/dL 10/02/2023 8:36 AM [facility] Blood BLOOD SPECIMEN / Unknown Lab Venipuncture / Unknown 10/02/2023 7:33 AM [facility] 10/02/2023 8:03 AM [facility] Jenaro Marshall MD LAB - CHEMISTRY PATRICIA CASIANO [address] [address], [place] [phone] * (ABNORMAL) COMPREHENSIVE METABOLIC PANEL (10/02/2023 7:33 AM [facility]) BUN 11 7 - 26 mg/dL 10/02/2023 8:36 AM [facility] Creatinine 2.38(H) 0.56 - 0.96 mg/dL 10/02/2023 8:36 AM [facility] Sodium 139 136 - 145 mmol/L 10/02/2023 8:36 AM [facility] Potassium 3.4(L) 3.5 - 4.5 mmol/L 10/02/2023 8:36 AM [facility] Chloride 99 98 - 107 mmol/L 10/02/2023 8:36 AM [facility] CO2 28 22 - 29 mmol/L 10/02/2023 8:36 AM [facility] Glucose 93 70 - 115 mg/dL 10/02/2023 8:36 AM [facility] Calcium 10.0 8.4 - 10.2 mg/dL 10/02/2023 8:36 AM [facility] Protein Total 5.6(L) 6.0 - 8.3 g/dL 10/02/2023 8:36 AM [facility] Albumin 2.5(L) 3.4 - 5.0 g/dL 10/02/2023 8:36 AM [facility] Bilirubin Total 0.5 0.2 - 1.2 mg/dL 10/02/2023 8:36 AM [facility] Alkaline Phosphatase 128 40 - 150 U/L 10/02/2023 8:36 AM [facility] ALT 13 5 - 55 U/L 10/02/2023 8:36 AM [facility] AST 19 5 - 34 U/L 10/02/2023 8:36 AM [facility] Anion Gap 12 6 - 16 10/02/2023 8:36 AM [facility] BUN/Creatinine Ratio 5(L) 7 - 23 10/02/2023 8:36 AM [facility] Osmolality Calculated 287 275 - 295 mOsm/kg 10/02/2023 8:36 AM [facility] Albumin/Globulin Ratio 0.8(L) 1.1 - 2.3 10/02/2023 8:36 AM [facility] eGFR by CKD-EPI 20(L) >=90 mL/min/1.7 3 m2 10/02/2023 8:36 AM [facility] Blood BLOOD SPECIMEN / Unknown Lab Venipuncture / Unknown 10/02/2023 7:33 AM [facility] 10/02/2023 8:03 AM [facility] Jenaro Marshall MD LAB - CHEMISTRY PATRICIA CASIANO [facility] Organization Address City/State/ZIP Co de Phone Number [facility] [address] [place] [address], [facility] [phone] * (ABNORMAL) CBC W AUTO DIFFERENTIAL (10/02/2023 7:33 AM [facility]) WBC 7.2 3.5 - 10.5 10? 3 /uL 10/02/2023 8:07 AM [facility] RBC 3.02(L) 3.80 - 5.20 10? 6 /uL 10/02/2023 8:07 AM [facility] Hemoglobin 8.8(L) 12.0 - 15.6 g/dL 10/02/2023 8:07 AM [facility] Hematocrit 27.4(L) 35.0 - 45.0 % 10/02/2023 8:07 AM [facility] MCV 90.7 80.7 - 98.3 fL 10/02/2023 8:07 AM [facility] MCH 29.1 26.7 - 34.0 pg 10/02/2023 8:07 AM [facility] MCHC 32.1 30.8 - 35.9 g/dL 10/02/2023 8:07 AM [facility] RDW-SD 46.9 36.0 - 50.0 fL 10/02/2023 8:07 AM [facility] RDW-CV 14.1 11.2 - 14.8 % 10/02/2023 8:07 AM [facility] Platelet Count 229 150 - 400 10? 3 /uL 10/02/2023 8:07 AM [facility] MPV 8.7(L) 9.4 - 12.9 fL 10/02/2023 8:07 AM [facility] nRBC Absolute 0.00 0 10? 3 /uL 10/02/2023 8:07 AM [facility] nRBC Auto 0.0 0 /100 WBC 10/02/2023 8:07 AM [facility] Neutrophils % 57.0 35.0 - 70.0 % 10/02/2023 8:07 AM [facility] Lymphocytes % 24.8 20.0 - 43.0 % 10/02/2023 8:07 AM [facility] Monocytes % 13.3(H) 5.0 - 13.0 % 10/02/2023 8:07 AM [facility] Eosinophils % 2.4 0.0 - 6.0 % 10/02/2023 8:07 AM [facility] Basophil % 1.0 0.0 - 2.0 % 10/02/2023 8:07 AM [facility] Neutrophils Absolute 4.13 1.60 - 7.00 10? 3 /uL 10/02/2023 8:07 AM [facility] Lymphocyte Absolute 1.79 1.10 - 3.90 10? 3 /uL 10/02/2023 8:07 AM [facility] Monocytes Absolute 0.96 0.26 - 1.07 10? 3 /uL 10/02/2023 8:07 AM [facility] Eosinophils Absolute 0.17 0.00 - 0.47 10? 3 /uL 10/02/2023 8:07 AM [facility] Basophils Absolute 0.07 0.00 - 0.08 10? 3 /uL 10/02/2023 8:07 AM [facility] Immature Granulocytes % 1.5(H) 0.0 - 1.0 % 10/02/2023 8:07 AM [facility] Immature Granulocytes Absolute 0.11 10/02/2023 8:07 AM [facility] Blood BLOOD SPECIMEN / Unknown Lab Venipuncture / Unknown 10/02/2023 7:33 AM [facility] 10/02/2023 7:56 AM [facility] Jenaro Marshall MD LAB - HEMATOLOGY [place] Performing Organization Address City/[facility] de Phone Number [facility] [address] [place] [id number], [facility] [phone] * (ABNORMAL) PHOSPHORUS BLOOD (10/01/2023 5:36 AM [facility] [employer] [facility]) Phosphorus 2.3(L) 2.9 - 5.1 mg/dL 10/01/2023 7:04 AM [facility] Blood BLOOD SPECIMEN / Unknown Lab Venipuncture / Unknown 10/01/2023 5:36 AM [facility] 10/01/2023 6:31 AM [facility] Jenaro Marshall MD LAB - CHEMISTRY PATRICIA CASIANO [facility] [address] [place] [address], [facility] [phone] * MAGNESIUM BLOOD (10/01/2023 5:36 AM [employer]) Pathologist [facility] Magnesium 1.9 1.6 - 2.6 mg/dL 10/01/2023 7:04 AM [facility] Blood BLOOD SPECIMEN / Unknown Lab Venipuncture / Unknown 10/01/2023 5:36 AM [facility] [employer] [facility] 10/01/2023 6:31 AM [facility] [employer] [facility] Jenaro Marshall MD LAB - CHEMISTRY PATRICIA CASIANO Performing Organization Address [facility]/ZIP Co de Phone Number [address] [address], [facility] [phone] * (ABNORMAL) COMPREHENSIVE METABOLIC PANEL (10/01/2023 5:36 AM [facility]) [facility] BUN 15 7 - 26 mg/dL 10/01/2023 7:06 AM [facility] Creatinine 2.52(H) 0.56 - 0.96 mg/dL 10/01/2023 7:06 AM [facility] Sodium 139 136 - 145 mmol/L 10/01/2023 7:06 AM [facility] Potassium 4.5 3.5 - 4.5 mmol/L 10/01/2023 7:06 AM [facility] Chloride 100 98 - 107 mmol/L 10/01/2023 7:06 AM [facility] CO2 26 22 - 29 mmol/L 10/01/2023 7:06 AM [facility] Glucose 86 70 - 115 mg/dL 10/01/2023 7:06 AM [facility] Calcium 10.0 8.4 - 10.2 mg/dL 10/01/2023 7:06 AM [facility] Protein Total 5.5(L) 6.0 - 8.3 g/dL 10/01/2023 7:06 AM [facility] Albumin 2.5(L) 3.4 - 5.0 g/dL 10/01/2023 7:06 AM [facility] Bilirubin Total 0.5 0.2 - 1.2 mg/dL 10/01/2023 7:06 AM [facility] Alkaline Phosphatase 122 40 - 150 U/L 10/01/2023 7:06 AM [facility] ALT 13 5 - 55 U/L 10/01/2023 7:06 AM [facility] AST 19 5 - 34 U/L 10/01/2023 7:06 AM [facility] Anion Gap 13 6 - 16 10/01/2023 7:06 AM [facility] BUN/Creatinine Ratio 6(L) 7 - 23 10/01/2023 7:06 AM [facility] Osmolality Calculated 288 275 - 295 mOsm/kg 10/01/2023 7:06 AM [facility] Albumin/Globulin Ratio 0.8(L) 1.1 - 2.3 10/01/2023 7:06 AM [facility] eGFR by CKD-EPI 19(L) >=90 mL/min/1.7 3 m2 10/01/2023 7:06 AM [facility] Blood BLOOD SPECIMEN / Unknown Lab Venipuncture / Unknown 10/01/2023 5:36 AM [facility] 10/01/2023 6:31 AM [facility] Jenaro Marshall MD LAB - CHEMISTRY PATRICIA CASIANO [facility] Organization Address [facility]/State/ZIP Co de Phone Number [facility] [address] [place] [address], [facility] [phone] * (ABNORMAL) CBC W AUTO DIFFERENTIAL (10/01/2023 5:36 AM [facility]) WBC 9.6 3.5 - 10.5 10? 3 /uL 10/01/2023 6:56 AM [facility] RBC 2.91(L) 3.80 - 5.20 10? 6 /uL 10/01/2023 6:56 AM [facility] Hemoglobin 8.5(L) 12.0 - 15.6 g/dL 10/01/2023 6:56 AM [facility] Hematocrit 27.0(L) 35.0 - 45.0 % 10/01/2023 6:56 AM [facility] MCV 92.8 80.7 - 98.3 fL 10/01/2023 6:56 AM [facility] MCH 29.2 26.7 - 34.0 pg 10/01/2023 6:56 AM [facility] MCHC 31.5 30.8 - 35.9 g/dL 10/01/2023 6:56 AM [facility] RDW-SD 47.8 36.0 - 50.0 fL 10/01/2023 6:56 AM [facility] RDW-CV 14.2 11.2 - 14.8 % 10/01/2023 6:56 AM [facility] Platelet Count 237 150 - 400 10? 3 /uL 10/01/2023 6:56 AM [facility] MPV 8.9(L) 9.4 - 12.9 fL 10/01/2023 6:56 AM [facility] nRBC Absolute 0.00 0 10? 3 /uL 10/01/2023 6:56 AM [facility] nRBC Auto 0.0 0 /100 WBC 10/01/2023 6:56 AM [facility] Neutrophils % 72.6(H) 35.0 - 70.0 % 10/01/2023 6:56 AM [facility] Lymphocytes % 13.9(L) 20.0 - 43.0 % 10/01/2023 6:56 AM [facility] Monocytes % 10.1 5.0 - 13.0 % 10/01/2023 6:56 AM [facility] Eosinophils % 2.1 0.0 - 6.0 % 10/01/2023 6:56 AM [facility] Basophil % 0.8 0.0 - 2.0 % 10/01/2023 6:56 AM [facility] Neutrophils Absolute 6.96 1.60 - 7.00 10? 3 /uL 10/01/2023 6:56 AM [facility] Lymphocyte Absolute 1.33 1.10 - 3.90 10? 3 /uL 10/01/2023 6:56 AM [facility] Monocytes Absolute 0.97 0.26 - 1.07 10? 3 /uL 10/01/2023 6:56 AM [facility] Eosinophils Absolute 0.20 0.00 - 0.47 10? 3 /uL 10/01/2023 6:56 AM [facility] Basophils Absolute 0.08 0.00 - 0.08 10? 3 /uL 10/01/2023 6:56 AM [facility] Immature Granulocytes % 0.5 0.0 - 1.0 % 10/01/2023 6:56 AM [facility] Immature Granulocytes Absolute 0.05 10/01/2023 6:56 AM [facility] Blood BLOOD SPECIMEN / Unknown Lab Venipuncture / Unknown 10/01/2023 5:36 AM [facility] 10/01/2023 6:29 AM [facility] Jenaro Marshall MD LAB - HEMATOLOGY ORD ERABLES [facility] [address] [place] [address], [facility] [phone] * SARS-COV-2 (COVID-19)+INFLU A+B PCR RAPID (09/30/2023 9:48 AM [facility]) COVID-19 PCR Not detected Not detected 09/30/20 10:34 AM [facility] Influenza A Rapid ANGELA Not Detected Not Detected 09/30/2023 10:34 AM [facility] Influenza B ANGELA Rapid Not Detected Not Detected 09/30/2023 10:34 AM [facility] Microbiology SPECIMEN FROM NASOPHARYNGEAL STRUCTURE / Unknown Collection / Unknown 09/30/2023 9:48 AM [facility] 09/30/2023 9:52 AM [facility] Narrative [facility] - 09/30/2023 10:34 AM [facility] Influenza assay performed by [employer]. [...] acid amplification assay performance was validated by [facility]. This test has been authorized by the [...] Luis Eduardo Tristan MD LAB - MICROBIOLOGY Rosalina BAUM Performing Organization Address City/[facility]/ZIP Co de Phone Number [address] [address], [facility] [phone] * HEPATITIS B SURFACE ANTIGEN W RFLX CONFIRMATION (09/30/2023 5:41 AM [facility]) Hepatitis B Virus Surface Antigen Non-reacti ve Non-reacti ve 09/30/2023 12:28 PM [facility] [employer] [facility] Blood BLOOD SPECIMEN / Unknown Venipuncture / Unknown 09/30/2023 5:41 AM [facility] 09/30/2023 5:49 AM [facility] Howard Weston MD LAB - CHEMISTRY PATRICIA CASIANO [address] [address], [facility] [phone] * (ABNORMAL) FERRITIN (09/30/2023 5:41 AM [facility]) Ferritin 2,026(H) 13 - 204 ng/mL 09/30/2023 8:25 AM [facility] [employer] Comment:Result obtained by vasyl eugene. Blood BLOOD SPECIMEN / Unknown Venipuncture / Unknown 09/30/2023 5:41 AM [facility] 09/30/2023 5:49 AM [facility] Jenaro Marshall MD LAB - CHEMISTRY PATRICIA CASIANO [address] [address], [place] [phone] * (ABNORMAL) IRON + TRANSFERRIN PANEL (09/30/2023 5:41 AM [facility]) Pathologist [facility] Iron 77 40 - 150 ug/dL 09/30/2023 7:34 AM [facility] Transferrin 128(L) 174 - 382 mg/dL 09/30/2023 7:34 AM [facility] Transferrin Saturation % 48 16 - 50 % 09/30/2023 7:34 AM [facility] TIBC Calculated 160(L) 240 - 450 ug/dL 09/30/2023 7:34 AM [facility] Blood BLOOD SPECIMEN / Unknown Venipuncture / Unknown 09/30/2023 5:41 AM [facility] 09/30/2023 5:49 AM [facility] Jenaro Marshall MD LAB - CHEMISTRY PATRICIA CASIANO [address] [address], [place] [phone] * PHOSPHORUS BLOOD (09/30/2023 5:41 AM [facility] [employer] [facility]) Phosphorus 3.5 2.9 - 5.1 mg/dL 09/30/2023 6:25 AM [facility] [employer] [facility] Blood BLOOD SPECIMEN / Unknown Venipuncture / Unknown 09/30/2023 5:41 AM [facility] 09/30/2023 5:58 AM [facility] Jenaro Marshall MD LAB - CHEMISTRY PATRICIA CASIANO [address] [address], [place] [phone] * MAGNESIUM BLOOD (09/30/2023 5:41 AM [facility]) Magnesium 1.9 1.6 - 2.6 mg/dL 09/30/2023 6:25 AM [facility] Blood BLOOD SPECIMEN / Unknown Venipuncture / Unknown 09/30/2023 5:41 AM [facility] 09/30/2023 5:58 AM [facility] Jenaro Marshall MD LAB - CHEMISTRY PATRICIA CASIANO [facility] Organization Address [facility] Co de Phone Number [facility] [address] [place] [phone] [phone] * (ABNORMAL) COMPREHENSIVE METABOLIC PANEL (09/30/2023 5:41 AM [facility] [employer] [facility]) BUN 25 7 - 26 mg/dL 09/30/2023 6:33 AM [facility] Creatinine 4.52(H) 0.56 - 0.96 mg/dL 09/30/2023 6:33 AM [facility] Sodium 137 136 - 145 mmol/L 09/30/2023 6:33 AM [facility] Potassium 3.9 3.5 - 4.5 mmol/L 09/30/2023 6:33 AM [facility] Chloride 96(L) 98 - 107 mmol/L 09/30/2023 6:33 AM [facility] CO2 29 22 - 29 mmol/L 09/30/2023 6:33 AM [facility] Glucose 89 70 - 115 mg/dL 09/30/2023 6:33 AM [facility] Calcium 10.1 8.4 - 10.2 mg/dL 09/30/2023 6:33 AM [facility] Protein Total 5.2(L) 6.0 - 8.3 g/dL 09/30/2023 6:33 AM [facility] Albumin 2.4(L) 3.4 - 5.0 g/dL 09/30/2023 6:33 AM [facility] Bilirubin Total 0.5 0.2 - 1.2 mg/dL 09/30/2023 6:33 AM [facility] Alkaline Phosphatase 113 40 - 150 U/L 09/30/2023 6:33 AM [facility] ALT 9 5 - 55 U/L 09/30/2023 6:33 AM [facility] AST 14 5 - 34 U/L 09/30/2023 6:33 AM [facility] Anion Gap 12 6 - 16 09/30/2023 6:33 AM [facility] BUN/Creatinine Ratio 6(L) 7 - 23 09/30/2023 6:33 AM [facility] Osmolality Calculated 288 275 - 295 mOsm/kg 09/30/2023 6:33 AM [facility] Albumin/Globulin Ratio 0.9(L) 1.1 - 2.3 09/30/2023 6:33 AM [facility] eGFR by CKD-EPI 9(L) >=90 mL/min/1.7 3 m2 09/30/2023 6:33 AM [facility] Blood BLOOD SPECIMEN / Unknown Venipuncture / Unknown 09/30/2023 5:41 AM [facility] 09/30/2023 5:58 AM [facility] Jenaro Marshall MD LAB - CHEMISTRY PATRICIA CASIANO [facility] Organization Address City/State/ZIP Co de Phone Number [facility] [address] [place] [address], [facility] [phone] * (ABNORMAL) CBC W AUTO DIFFERENTIAL (09/30/2023 5:41 AM [facility]) WBC 7.7 3.5 - 10.5 10? 3 /uL 09/30/2023 5:58 AM [facility] RBC 2.62(L) 3.80 - 5.20 10? 6 /uL 09/30/2023 5:58 AM [facility] Hemoglobin 7.7(L) 12.0 - 15.6 g/dL 09/30/2023 5:58 AM [facility] Hematocrit 24.6(L) 35.0 - 45.0 % 09/30/2023 5:58 AM [facility] MCV 93.9 80.7 - 98.3 fL 09/30/2023 5:58 AM [facility] MCH 29.4 26.7 - 34.0 pg 09/30/2023 5:58 AM [facility] MCHC 31.3 30.8 - 35.9 g/dL 09/30/2023 5:58 AM [facility] RDW-SD 47.4 36.0 - 50.0 fL 09/30/2023 5:58 AM [facility] RDW-CV 14.0 11.2 - 14.8 % 09/30/2023 5:58 AM [facility] Platelet Count 214 150 - 400 10? 3 /uL 09/30/2023 5:58 AM [facility] MPV 8.5(L) 9.4 - 12.9 fL 09/30/2023 5:58 AM [facility] nRBC Absolute 0.00 0 10? 3 /uL 09/30/2023 5:58 AM [facility] nRBC Auto 0.0 0 /100 WBC 09/30/2023 5:58 AM [facility] Neutrophils % 63.4 35.0 - 70.0 % 09/30/2023 5:58 AM [facility] Lymphocytes % 21.9 20.0 - 43.0 % 09/30/2023 5:58 AM [facility] Monocytes % 12.4 5.0 - 13.0 % 09/30/2023 5:58 AM [facility] Eosinophils % 1.4 0.0 - 6.0 % 09/30/2023 5:58 AM [facility] Basophil % 0.6 0.0 - 2.0 % 09/30/2023 5:58 AM [facility] Neutrophils Absolute 4.90 1.60 - 7.00 10? 3 /uL 09/30/2023 5:58 AM [facility] Lymphocyte Absolute 1.69 1.10 - 3.90 10? 3 /uL 09/30/2023 5:58 AM [facility] Monocytes Absolute 0.96 0.26 - 1.07 10? 3 /uL 09/30/2023 5:58 AM [facility] Eosinophils Absolute 0.11 0.00 - 0.47 10? 3 /uL 09/30/2023 5:58 AM [facility] Basophils Absolute 0.05 0.00 - 0.08 10? 3 /uL 09/30/2023 5:58 AM [facility] Immature Granulocytes % 0.3 0.0 - 1.0 % 09/30/2023 5:58 AM [facility] Immature Granulocytes Absolute 0.02 09/30/2023 5:58 AM [facility] Blood BLOOD SPECIMEN / Unknown Venipuncture / Unknown 09/30/2023 5:41 AM [facility] 09/30/2023 5:55 AM [facility] Jenaro Marshall MD LAB - HEMATOLOGY ORD ELICEO Performing Organization Address City/[facility]/ZIP Co de Phone Number [address] [address], [facility] [phone] * (ABNORMAL) TROPONIN-I HIGH SENSITIVE REFLEX 1HOUR (09/29/2023 6:24 PM [facility] [employer] [facility]) [facility] Troponin I High Sensitive 23(H) <=14 ng/L 09/29/2023 7:11 PM [facility] Delta Troponin I HS <0 <6 ng/L 09/29/2023 7:11 PM [facility] Blood BLOOD SPECIMEN / Unknown Venipuncture / Unknown 09/29/2023 6:24 PM [facility] 09/29/2023 6:32 PM [facility] Alexis Atkins MD LAB - CHEMISTRY PATRICIA CASIANO Performing Organization Address [facility]/ZIP Co de Phone Number [address] [address], [place] [phone] * EKG 12-LEAD (09/29/2023 5:23 PM [facility] [employer] [facility]) Ventricular Rate 72 BPM SL MUSE Atrial Rate 72 BPM [facility] MUSE P-R Interval 182 ms [facility] MUSE QRS Duration ms 84 ms [facility] MUSE Q-T Interval ms 424 ms [facility] MUSE QTC Calculation (Bezet) 464 ms [facility] MUSE Calculated P [place] 53 degrees [facility] MUSE Calculated R [place] 16 degrees [facility] MUSE Calculated T [place] 44 degrees [facility] MUSE Interpretation EKG NORMAL SINUS RHYTHM NONSPECIFIC ST ABNORMALITY ABNORMAL ECG WHEN COMPARED WITH ECG OF 21-AUG-2022 19:22, PREMATURE ATRIAL COMPLEXES ARE NO LONGER PRESENT SD INTERVAL HAS DECREASED Confirmed by ARIAS ??JAMIE LAWRENCE (1980) on 10/01/2023 7:29:35 PM [facility] MUSE 09/29/2023 5:23 PM [facility] 10/01/2023 7:29 PM [facility] Alexis Atkins MD ECG ORDERABLES Performing Organization Address [facility] Co de Phone Number [facility] MUSE * PT-INR [facility] (09/29/2023 5:19 PM [facility] [employer]) [facility] PT 12.2 12.1 - 14.8 Seconds 09/29/2023 5:52 PM [facility] INR 0.9 See Comment 09/29/2023 5:52 PM [facility] Comment:The suggested therap eutic range for standard coumadin (warfarin) therapy is an INR of 2.0-3.0. For high-risk patients (Mechanical Mitral Valve Prosthesis, etc.), the suggested prophylactic therapeutic range is an INR of 2.5-3.5. Blood BLOOD SPECIMEN / Unknown Venipuncture / Unknown 09/29/2023 5:19 PM [facility] [employer] [facility] 09/29/2023 5:28 PM [facility] Alexis Atkins MD LAB - COAGULATION OR DERABLES Performing Organization Address [facility] Co de Phone Number [facility] [address] [place] [address], [facility] [phone] * (ABNORMAL) TEG 6S PLATELET MAPPING (09/29/2023 5:19 PM [facility]) Pathologist [facility] TEGPLM (Max Amplitude) [place] 67.0 53.0 - 68.0 mm 09/29/2023 6:39 PM [facility] TEGPLM (Max Amplitude) ACTF 21.9(H) 2.0 - 19.0 mm 09/29/2023 6:39 PM [facility] TEGPLM (Max Amplitude) ADP 63.0 45.0 - 69.0 mm 09/29/2023 6:39 PM [facility] TEGPLM (Max Amplitude) AA 62.6 51.0 - 71.0 mm 09/29/2023 6:39 PM [facility] TEGPLM %Inhibition ADP 8.9 0.0 - 17.0 % 09/29/2023 6:39 PM [facility] TEGPLM %Inhibition AA 9.8 0.0 - 11.0 % 09/29/2023 6:39 PM [facility] TEGPLM %Aggregation ADP 91.1 83.0 - 100.0 % 09/29/2023 6:39 PM [facility] TEGPLM % Aggregation AA 90.2 89.0 - 100.0 % 09/29/2023 6:39 PM [facility] Blood BLOOD SPECIMEN / Unknown Venipuncture / Unknown 09/29/2023 5:19 PM [facility] [employer] [facility] 09/29/2023 5:31 PM [facility] Alexis Atkins MD LAB - HEMATOLOGY ORD ERABLES [address] [address], [facility] [phone] * (ABNORMAL) TEG 6 GLOBAL HEMOSTASIS W/ LYSIS (09/29/2023 5:19 PM [facility]) Citrated Kaolin R (Reaction Time) 3.2(L) 4.6 - 9.1 min 09/29/2023 6:32 PM [facility] Comment:CK R result below no rmal range. Consistent with hypercoagulable clotting factors. Citrated Kaolin LY30 (Lysis) 0.8 0.0 - 2.6 % 09/29/2023 6:32 PM [facility] Citrated Functional Fibrinogen MA (Max Amplitude) 35.0(H) 15.0 - 32.0 mm 09/29/2023 6:32 PM [facility] Comment:CFF MA above normal range. Consistent with elevated fibrinogen contribution to clot strength. Citrated RapidTEG MA (Max Amplitude) 68.1 52.0 - 70.0 mm 09/29/2023 6:32 PM [facility] Blood BLOOD SPECIMEN / Unknown Venipuncture / Unknown 09/29/2023 5:19 PM [facility] 09/29/2023 5:31 PM [facility] Alexis Atkins MD LAB - HEMATOLOGY [place] [address] [address], [place] [phone] * (ABNORMAL) TROPONIN-I HIGH SENSITIVE BASELINE + 1HR (09/29/2023 5:19 PM [facility] [employer]) Troponin I High Sensitive 26(H) <=14 ng/L 09/29/2023 6:01 PM [facility] [employer] [facility] Blood BLOOD SPECIMEN / Unknown Venipuncture / Unknown 09/29/2023 5:19 PM [facility] [employer] [facility] 09/29/2023 5:28 PM [facility] Alexis Atkins MD LAB - CHEMISTRY PATRICIA CASIANO Performing Organization Address City/[facility]/ZIP Co de Phone Number [address] [address], [place] [phone] * MAGNESIUM BLOOD (09/29/2023 5:19 PM [facility] [employer]) Pathologist [facility] Magnesium 1.6 1.6 - 2.6 mg/dL 09/29/2023 5:57 PM [facility] [employer] [facility] Blood BLOOD SPECIMEN / Unknown Venipuncture / Unknown 09/29/2023 5:19 PM [facility] 09/29/2023 5:28 PM [facility] Alexis Atkins MD LAB - CHEMISTRY PATRICIA CASIANO [address] [address], [place] [phone] * (ABNORMAL) COMPREHENSIVE METABOLIC PANEL (09/29/2023 5:19 PM [facility]) BUN 18 7 - 26 mg/dL 09/29/2023 5:57 PM [facility] Creatinine 3.22(H) 0.56 - 0.96 mg/dL 09/29/2023 5:57 PM [facility] [employer] [facility] Sodium 139 136 - 145 mmol/L 09/29/2023 5:57 PM [facility] [employer] [facility] Potassium 3.1(L) 3.5 - 4.5 mmol/L 09/29/2023 5:57 PM [facility] Chloride 103 98 - 107 mmol/L 09/29/2023 5:57 PM [facility] CO2 25 22 - 29 mmol/L 09/29/2023 5:57 PM [facility] Glucose 82 70 - 115 mg/dL 09/29/2023 5:57 PM [facility] Calcium 8.5 8.4 - 10.2 mg/dL 09/29/2023 5:57 PM [facility] Protein Total 5.1(L) 6.0 - 8.3 g/dL 09/29/2023 5:57 PM [facility] Albumin 2.4(L) 3.4 - 5.0 g/dL 09/29/2023 5:57 PM [facility] Bilirubin Total 0.5 0.2 - 1.2 mg/dL 09/29/2023 5:57 PM [facility] Alkaline Phosphatase 111 40 - 150 U/L 09/29/2023 5:57 PM [facility] ALT 10 5 - 55 U/L 09/29/2023 5:57 PM [facility] AST 14 5 - 34 U/L 09/29/2023 5:57 PM [facility] Anion Gap 11 6 - 16 09/29/2023 5:57 PM [facility] BUN/Creatinine Ratio 6(L) 7 - 23 09/29/2023 5:57 PM [facility] Osmolality Calculated 289 275 - 295 mOsm/kg 09/29/2023 5:57 PM [facility] Albumin/Globulin Ratio 0.9(L) 1.1 - 2.3 09/29/2023 5:57 PM [facility] eGFR by CKD-EPI 14(L) >=90 mL/min/1.7 3 m2 09/29/2023 5:57 PM [facility] Blood BLOOD SPECIMEN / Unknown Venipuncture / Unknown 09/29/2023 5:19 PM [facility] [employer] [facility] 09/29/2023 5:28 PM [facility] Alexis Atkins MD LAB - CHEMISTRY PATRICIA CASIANO [facility] Organization Address City/State/ZIP Co de Phone Number [facility] [address] [place] [address], [facility] [phone] * (ABNORMAL) CBC W AUTO DIFFERENTIAL (09/29/2023 5:19 PM [employer]) WBC 9.2 3.5 - 10.5 10? 3 /uL 09/29/2023 5:53 PM [facility] RBC 2.95(L) 3.80 - 5.20 10? 6 /uL 09/29/2023 5:53 PM [facility] Hemoglobin 8.8(L) 12.0 - 15.6 g/dL 09/29/2023 5:53 PM [facility] Hematocrit 27.7(L) 35.0 - 45.0 % 09/29/2023 5:53 PM [facility] MCV 93.9 80.7 - 98.3 fL 09/29/2023 5:53 PM [facility] MCH 29.8 26.7 - 34.0 pg 09/29/2023 5:53 PM [facility] MCHC 31.8 30.8 - 35.9 g/dL 09/29/2023 5:53 PM [facility] RDW-SD 47.8 36.0 - 50.0 fL 09/29/2023 5:53 PM [facility] RDW-CV 14.0 11.2 - 14.8 % 09/29/2023 5:53 PM [facility] Platelet Count 233 150 - 400 10? 3 /uL 09/29/2023 5:53 PM [facility] MPV 8.6(L) 9.4 - 12.9 fL 09/29/2023 5:53 PM [facility] nRBC Absolute 0.00 0 10? 3 /uL 09/29/2023 5:53 PM [facility] nRBC Auto 0.0 0 /100 WBC 09/29/2023 5:53 PM [facility] Neutrophils % 68.6 35.0 - 70.0 % 09/29/2023 5:53 PM [facility] Lymphocytes % 21.1 20.0 - 43.0 % 09/29/2023 5:53 PM [facility] Monocytes % 8.4 5.0 - 13.0 % 09/29/2023 5:53 PM [facility] Eosinophils % 0.7 0.0 - 6.0 % 09/29/2023 5:53 PM [facility] Basophil % 0.7 0.0 - 2.0 % 09/29/2023 5:53 PM [facility] Neutrophils Absolute 6.33 1.60 - 7.00 10? 3 /uL 09/29/2023 5:53 PM [facility] Lymphocyte Absolute 1.95 1.10 - 3.90 10? 3 /uL 09/29/2023 5:53 PM [facility] Monocytes Absolute 0.77 0.26 - 1.07 10? 3 /uL 09/29/2023 5:53 PM [facility] Eosinophils Absolute 0.06 0.00 - 0.47 10? 3 /uL 09/29/2023 5:53 PM [facility] Basophils Absolute 0.06 0.00 - 0.08 10? 3 /uL 09/29/2023 5:53 PM [facility] Immature Granulocytes % 0.5 0.0 - 1.0 % 09/29/2023 5:53 PM [facility] Immature Granulocytes Absolute 0.05 09/29/2023 5:53 PM [facility] Blood BLOOD SPECIMEN / Unknown Venipuncture / Unknown 09/29/2023 5:19 PM [facility] 09/29/2023 5:29 PM [facility] Alexis Atkins MD LAB - HEMATOLOGY ORD ERABLES Performing Organization Address City/State/[facility] Co de Phone Number [facility] [address] [place] [address], [facility] [phone] * CT LUMBAR SPINE WO CONTRAST (09/29/2023 5:03 PM [employer]) Anatomical Region Laterality Modality Spine Computed Tomogra phy 09/29/2023 5:12 PM [facility] [employer] [facility] Impressions 09/29/2023 6:11 PM [facility] IMPRESSION: 1. Small acute extra-axial hematoma along [...] 09/29/2023 6:11 PM Narrative 09/29/2023 6:11 PM [employer] [facility] PROCEDURE: ??CT HEAD WO CONTRAST, CT LUMBAR [...] THORACIC SPINE WO CONTRAST (09/29/2023 5:03 PM [employer]) Anatomical Region Laterality Modality Spine Computed Tomogra phy 09/29/2023 5:12 PM [facility] [employer] [facility] Impressions 09/29/2023 6:11 PM [facility] [employer] [facility] IMPRESSION: 1. Small acute extra-axial hematoma along [...] 09/29/2023 6:11 PM Narrative 09/29/2023 6:11 PM [facility] [employer] [facility] PROCEDURE: ??CT HEAD WO CONTRAST, CT LUMBAR [...] Alexis Atkins MD CT ORDERABLES * CT CHEST ABDOMEN PELVIS W CONT (09/29/2023 5:03 PM [employer]) Anatomical Region Laterality Modality Chest, Abdomen, Pelvis Computed Tomography 09/29/2023 4:52 PM [facility] [employer] [facility] Impressions 09/29/2023 7:37 PM [employer] Impression: 1.New age-indeterminate fractures of the right second, third, fourth anterior ribs, favored to be acute/subacute. Correlation with point tenderness. 2.Otherwise no evidence of osseous or visceral injury in the chest, abdomen or pelvis. > Dictated by Heath Wu MD, (cmo & president). IJuwan have personally reviewed and interpreted this examination/study. > Interpreting Provider: Juwan Aceves on 09/29/2023 7:37 PM Narrative 09/29/2023 7:37 PM [employer] PROCEDURE: ??CT CHEST ABDOMEN PELVIS W CONT, DATE/TIME OF EXAM: ??09/29/2023 5:04 PM, LOCATION ??[facility] INDICATION: W19.XXXA: Fall, initial [...] CONT, DATE/TIME OF EXAM:09/29/2023 5:04 PM, LOCATION [facility] INDICATION: W19.XXXA: Fall, initial [...] pelvis. > Dictated by Heath Wu MD, (cmo & president). I, Juwan Aceves have personally reviewed and interpreted this examination/study. > Interpreting Provider: Juwan Aceves on 09/29/2023 7:37 PM Alexis Atkins MD CT ORDERABLES * CT CERVICAL SPINE WO CONTRAST (09/29/2023 5:03 PM [employer]) Anatomical Region Laterality Modality Spine Computed Tomogra phy 09/29/2023 5:12 PM [employer] Impressions 09/29/2023 6:11 PM [employer] IMPRESSION: 1. Small acute extra-axial hematoma along [...] 09/29/2023 6:11 PM Narrative 09/29/2023 6:11 PM [employer] PROCEDURE: ??CT HEAD WO CONTRAST, CT LUMBAR [...] Alexis Atkins MD CT ORDERABLES * CT HEAD WO CONTRAST (09/29/2023 5:03 PM [employer]) Anatomical Region Laterality Modality Head Computed Tomogra phy 09/29/2023 5:12 PM [employer] Impressions 09/29/2023 6:11 PM [employer] IMPRESSION: 1. 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, including hip Hypertensive emergency Unspecified essential hypertension Syncope and collapse Fall, initial encounter ESRD (end stage renal disease) (HCC) End stage renal disease documented in this encounter Administered Medications Inactive Administered Medications - up to 3 most recent administrations Medication Order MAR Action Action Date Dose Rate Site 0.9% NaCl injection 1-10 mL 1-10 mL, Intracatheter, PRN, Other, peripheral line flush, Starting on Tue09/30/23 at 0005, Until Tue10/05/23 at 1522, Flush peripheral IV catheter with 1-10 mL of normal saline before and after medications and prn to clear blood from the line or to verify patency. 0.9% NaCl injection 10 mL 10 mL, Intracatheter, INTRA-PROCEDURE MULTIPLE, Starting on Tue10/05/23 at 1041, Until Tue10/05/23 at 1440, For Echo Procedure - Per Protocol Agitate saline before administration. $ Given 10/05/2023 10:43 AM [employer] 10 mL 0.9% NaCl injection 3 mL 3 mL, Intracatheter, EVERY 8 HOURS, First dose on Tue09/30/23 at 0045, Until Discontinued, Flush peripheral IV catheter with 3 mL of normal saline every 8 hours. $ Given 10/05/2023 5:52 AM [employer] 3 mL $ Given 10/04/2023 9:28 PM [employer] 3 mL $ Given 10/04/2023 1:24 PM [employer] 3 mL acetaminophen (Tylenol) tablet 500 mg 500 mg, Oral, EVERY 4 HOURS PRN, Mild Pain, Moderate Pain, Starting on Tue09/30/23 at 0236, Until Tue10/05/23 at 1522, Patient preference for lesser PRN pain meds may be honored when the patient requests a less strong medication, a lower dose, or a less intrusive route of administration when the lesser drug, dose and route have been ordered for the patient. This patient request must be documented in the MAR. $ Given 09/30/2023 8:00 AM [employer] 500 m g amLODIPine (Norvasc) tablet 10 mg 10 mg, Oral, AT BEDTIME, First dose (after last modification) on 10/03/23 at 2100, Until Discontinued $ Given 10/04/2023 9:10 PM [employer] 10 mg $ Given 10/03/2023 9:29 PM [employer] 10 mg amLODIPine (Norvasc) tablet 5 mg 5 mg, Oral, DAILY, First dose on 10/02/23 at 0900, Until Discontinued $ Given 10/02/2023 8:22 AM [employer] 5 mg amLODIPine (Norvasc) tablet 5 mg 5 mg, Oral, Once, 1 dose, On 10/02/23 at 1830 $ Given 10/02/2023 6:29 PM [employer] 5 mg busPIRone (Buspar) tablet 5 mg 5 mg, Oral, 3 TIMES DAILY, First dose on Tue09/30/23 at 0900, Until Discontinued $ Given 10/05/2023 2:05 PM [employer] 5 mg $ Given 10/05/2023 9:00 AM [employer] 5 mg $ Given 10/04/2023 9:09 PM [employer] 5 mg epoetin (Epogen; Procrit) injection 4,000 Units 4,000 Units, Intravenous, DIALYSIS EVERY TUE, MARLIN & SAT, First dose on 10/01/23 at 1700, Until Discontinued, Do not shake vial. Do not shake vial. Refrigerate $ Given 10/04/2023 12:59 PM [employer] 4,000 Units $ Given 10/01/2023 10:59 AM [employer] 4,000 Units escitalopram (Lexapro) tablet 5 mg 5 mg, Oral, DAILY, First dose on Tue09/30/23 at 0900, Until Discontinued $ Given 10/05/2023 9:00 AM [employer] 5 mg $ Given 10/04/2023 1:23 PM [employer] 5 mg $ Given 10/03/2023 8:50 AM [employer] 5 mg heparin injection 5,000 Units 5,000 Units, Subcutaneous, EVERY 8 HOURS, First dose on Tue09/30/23 at 0045, Until Discontinued $ Given 09/30/2023 12:14 AM [employer] 5,000 Units Abd Left Lower Quadrant heparin injection 5,000 Units 5,000 Units, Subcutaneous, EVERY 8 HOURS, First dose on Tue10/02/23 at 2200, Until Discontinued $ Given 10/05/2023 2:05 PM [employer] 5,000 Units Abd Left Lower Quadrant $ Given 10/05/2023 5:52 AM [employer] 5,000 Units A bd Left Lower Quadrant $ Given 10/04/2023 9:09 PM [employer] 5,000 Units R ight Leg hydrALAZINE (Apresoline) injection 10 mg 10 mg, Intravenous, EVERY 4 HOURS PRN, SBP greater than 160 mmHg, Starting on Tue10/02/23 at 1002, Until Tue10/05/23 at 1522 $ Given 10/04/2023 4:37 AM CS T 10 mg $ Given 10/02/2023 11:44 PM [employer] 10 mg $ Given 10/02/2023 6:08 PM [employer] 10 mg hydroCHLOROthiazide (Hydrodiuril) tablet 12.5 mg 12.5 mg, Oral, NOW, 1 dose, On Tue09/29/23 at 1800 $ Given 09/29/2023 6:15 PM [employer] 12.5 mg hydrOXYzine HCl (Atarax) tablet 10 mg 10 mg, Oral, EVERY 6 HOURS PRN, Itching, Anxiety, Starting on Tue10/04/23 at 1749, Until Tue10/05/23 at 1522 $ Given 10/04/2023 5:56 PM [employer] 10 mg iopamidol (Isovue 370) 76 % contrast Intravenous, CONTRAST ONCE, Starting on Tue09/29/23 at 1629, Until 10/01/23 at 1628 $ Given - Contrast 09/29/2023 4:32 PM [employer] 100 m L labetalol (Normodyne; Trandate) tablet 300 mg 300 mg, Oral, NOW, 1 dose, On Tue09/29/23 at 1800 $ Given 09/29/2023 6:15 PM [employer] 300 mg labetalol (Normodyne; Trandate) tablet 300 mg 300 mg, Oral, 2 TIMES DAILY, First dose on Tue09/30/23 at 0900, Until Discontinued $ Given 10/05/2023 8:59 AM [employer] 300 mg $ Given 10/04/2023 9:09 PM [employer] 300 mg $ Given 10/04/2023 1:23 PM [employer] 300 mg lisinopril (Prinivil; Zestril) tablet 20 mg 20 mg, Oral, NOW, 1 dose, On Marlin 09/29/23 at 1800 $ Given 09/29/2023 6:14 PM [employer] 20 mg losartan (Cozaar) tablet 100 mg 100 mg, Oral, DAILY, First dose (after last modification) on Tue10/04/23 at 0900, Until Discontinued $ Given 10/05/2023 9:00 AM [employer] 100 mg $ Given 10/04/2023 1:22 PM [employer] 100 mg losartan (Cozaar) tablet 50 mg 50 mg, Oral, DAILY, First dose on Tue09/30/23 at 0945, Until Discontinued $ Given 10/03/2023 8:49 AM [employer] 50 mg $ Given 10/02/2023 8:10 AM [employer] 50 mg $ Given 10/01/2023 2:06 PM [employer] 50 mg memantine (Namenda) tablet 5 mg 5 mg, Oral, 2 TIMES DAILY, First dose on Tue09/30/23 at 0900, Until Discontinued $ Given 10/05/2023 9:00 AM [employer] 5 mg $ Given 10/04/2023 9:09 PM [employer] 5 mg $ Given 10/04/2023 1:23 PM [employer] 5 mg polyethylene glycol 3350 (Miralax) packet 17 g 17 g, Oral, DAILY PRN, Constipation, Starting on 10/01/23 at 1131, Until Tue10/05/23 at 1522, Mix in 8 ounces of water, juice, soda, coffee or tea prior to administration First line for constipation potassium chloride (Klor-Con) packet 40 mEq 40 mEq, Oral, ONCE, 1 dose, On Tue09/30/23 at 0345, DISSOLVE IN 120 ML OF COLD WATER OR JUICE AND DRINK SLOWLY $ Given 09/30/2023 5:42 AM [employer] 40 mEq potassium chloride ER (Klor-Con M) tablet 20 mEq 20 mEq, Oral, ONCE, 1 dose, On Tue10/03/23 at 0900, Do not crush or chew. $ Given 10/03/2023 8:49 AM [employer] 20 mEq senna-docusate (Senokot-S) tablet 1 tablet 1 tablet, Oral, DAILY PRN, Constipation, Starting on 10/01/23 at 1135, Until Tue10/05/23 at 1522, Second line for constipation $ Given 10/02/2023 1:48 PM [employer] 1 tablet sodium phosphate 20 mmol in dextrose 5 % 256.7 mL bolus 20 mmol, at 42.78 mL/hr, Administer over 6 Hours, Intravenous, ONCE, 1 dose, On 10/01/23 at 0830 $ New Bag/Syringe 10/01/2023 9:10 AM [employer] 20 mmol 42.78 mL/hr sulfur hexafluoride microsphere (Lumason) 60.7-25 MG injection 2 mL 2 mL, Intravenous, INTRA-PROCEDURE MULTIPLE, Starting on Tue10/05/23 at 1041, Until Tue10/05/23 at 1522, Shake well before using. $ Given 10/05/2023 10:42 AM [employer] 2 mL documented in this encounter Active and Recently Administered Medications Times are shown in [employer]. Scheduled Medication Order 10/03/2023 10/04/2023 10/05/2023 0.9% NaCl injection 10 mL 10 mL, Intracatheter, INTRA-PROCEDURE MULTIPLE, Starting on Tue10/05/23 at 1041, Until Tue10/05/23 at 1440, For Echo Procedure - Per Protocol Agitate saline before administration. 1043 ($ Given - Provider: America Soliz RDCS) 0.9% NaCl injection 3 mL(Linked Group 1) 3 mL, Intracatheter, EVERY 8 HOURS, First dose on Tue09/30/23 at 0045, Until Discontinued, Flush peripheral IV catheter with 3 mL of normal saline every 8 hours. 0610 ($ Given - Provider: Steffany Baldwin RN)1542 ($ Given - Provider: Elsy Cabrera, GERA)2255 ($ Given - Provider: Saji James RN) 0441 ($ Given - Provider: Saji James, RN)1324 ($ Given - Provider: Elsy Cabrera, GERA)2128 ($ Given - Provider: Saji James RN) 0552 ($ Given - Provider: Saji James RN)1412 (Not Administered - Provider: Carlita Boateng RN - Reason: Discontinued by physician) amLODIPine (Norvasc) tablet 10 mg 10 mg, Oral, AT BEDTIME, First dose (after last modification) on Tue10/03/23 at 2100, Until Discontinued 212 ($ Given - Provider: Saji James RN) 2110 ($ Given - Provider: Saji James RN) busPIRone (Buspar) tablet 5 mg 5 mg, Oral, 3 TIMES DAILY, First dose on Tue09/30/23 at 0900, Until Discontinued 0850 ($ Given - Provider: Elsy Cabrera RN)1541 ($ Given - Provider: Elsy Cabrera RN)2130 ($ Given - Provider: Saji James RN) 1323 ($ Given - Provider: Elsy Cabrera RN)1556 (Not Administered - Provider: Elsy Cabrera RN - Reason: Per Administration Instructions)210 ($ Given - Provider: Saji James RN) 0900 ($ Given - Provider: Carlita Boateng RN)1405 ($ Given - Provider: Carlita Boateng RN) epoetin (Epogen; Procrit) injection 4,000 Units 4,000 Units, Intravenous, DIALYSIS EVERY TUE, TUE & SAT, First dose on 10/01/23 at 1700, Until Discontinued, Do not shake vial. Do not shake vial. Refrigerate 1259 ($ Given - Provider: Freeman Medrano RN)1653 (Not Administered - Provider: Elsy Cabrera RN - Reason: Per Administration Instructions - Comment: Given in Dialysis) escitalopram (Lexapro) tablet 5 mg 5 mg, Oral, DAILY, First dose on Tue09/30/23 at 0900, Until Discontinued 0850 ($ Given - Provider: Elsy Cabrera RN) 1323 ($ Given - Provider: Elsy Cabrera RN) 0900 ($ Given - Provider: Carlita Boateng RN) heparin injection 5,000 Units 5,000 Units, Subcutaneous, EVERY 8 HOURS, First dose on 10/02/23 at 2200, Until Discontinued 0608 ($ Given - Provider: Steffany Baldwin RN)1541 ($ Given - Provider: Elsy Cabrera RN)2129 ($ Given - Provider: Saji James RN) 0515 ($ Given - Provider: Saji James RN)1324 ($ Given - Provider: Elsy Cabrera RN)2109 ($ Given - Provider: Saji James RN) 0552 ($ Given - Provider: Saji James RN)1405 ($ Given - Provider: Carlita Boateng RN) labetalol (Normodyne; Trandate) tablet 300 mg 300 mg, Oral, 2 TIMES DAILY, First dose on Tue09/30/23 at 0900, Until Discontinued 0849 ($ Given - Provider: Elsy Cabrera RN)2128 ($ Given - Provider: Saji James RN) 132 ($ Given - Provider: Elsy Cabrera RN)210 ($ Given - Provider: Saji James RN) 0859 ($ Given - Provider: Carlita Boateng RN) losartan (Cozaar) tablet 100 mg 100 mg, Oral, DAILY, First dose (after last modification) on Tue10/04/23 at 0900, Until Discontinued 1322 ($ Given - Provider: Elsy Cabrera RN) 0900 ($ Given - Provider: Carlita Boateng RN) losartan (Cozaar) tablet 50 mg (CANCELED) 50 mg, Oral, DAILY, First dose on Tue09/30/23 at 0945, Until Discontinued 0849 ($ Given - Provider: Elsy Cabrera RN) memantine (Namenda) tablet 5 mg 5 mg, Oral, 2 TIMES DAILY, First dose on Tue09/30/23 at 0900, Until Discontinued 0849 ($ Given - Provider: Elsy Cabrera RN)2128 ($ Given - Provider: Saji James RN) 132 ($ Given - Provider: Elsy Cabrera RN)210 ($ Given - Provider: Saji James RN) 0900 ($ Given - Provider: Carlita Boateng RN) potassium chloride ER (Klor-Con M) tablet 20 mEq (COMPLETED) 20 mEq, Oral, ONCE, 1 dose, On Tue10/03/23 at 0900, Do not crush or chew. 0849 ($ Given - Provider: Elsy Cabrera RN) sulfur hexafluoride microsphere (Lumason) 60.7-25 MG injection 2 mL 2 mL, Intravenous, INTRA-PROCEDURE MULTIPLE, Starting on Tue10/05/23 at 1041, Until Tue10/05/23 at 1522, Shake well before using. 1042 ($ Given - Provider: America Soliz WILL) PRN Medication Order 10/03/2023 10/04/2023 10/05/2023 0.9% NaCl injection 1-10 mL(Linked Group 1) 1-10 mL, Intracatheter, PRN, Other, peripheral line flush, Starting on Tue09/30/23 at 0005, Until Tue10/05/23 at 1522, Flush peripheral IV catheter with 1-10 mL of normal saline before and after medications and prn to clear blood from the line or to verify patency. acetaminophen (Tylenol) tablet 500 mg 500 mg, Oral, EVERY 4 HOURS PRN, Mild Pain, Moderate Pain, Starting on Tue09/30/23 at 0236, Until Tue10/05/23 at 1522, Patient preference for lesser PRN pain meds may be honored when the patient requests a less strong medication, a lower dose, or a less intrusive route of administration when the lesser drug, dose and route have been ordered for the patient. This patient request must be documented in the MAR. hydrALAZINE (Apresoline) injection 10 mg 10 mg, Intravenous, EVERY 4 HOURS PRN, SBP greater than 160 mmHg, Starting on Tue10/02/23 at 1002, Until Tue10/05/23 at 1522 0437 ($ Given - Provider: Saji James RN) hydrOXYzine HCl (Atarax) tablet 10 mg 10 mg, Oral, EVERY 6 HOURS PRN, Itching, Anxiety, Starting on Tu10/04/23 at 1749, Until Tue10/05/23 at 1522 1756 ($ Given - Provider: Elsy Cabrera RN) polyethylene glycol 3350 (Miralax) packet 17 g 17 g, Oral, DAILY PRN, Constipation, Starting on 10/01/23 at 1131, Until Tue10/05/23 at 1522, Mix in 8 ounces of water, juice, soda, coffee or tea prior to administration First line for constipation senna-docusate (Senokot-S) tablet 1 tablet 1 tablet, Oral, DAILY PRN, Constipation, Starting on 10/01/23 at 1135, Until Tue10/05/23 at 1522, Second line for constipation Linked Groups Order Group 1: SALINE LOCK, INSERT AND MAINTAIN (CANCELED) Routine, CONTINUOUS, Starting on Tue09/30/23 at 0015, Until Specified, New collection, Task Completed: Yes And 0.9% NaCl injection 3 mLJump to med 3 mL, Intracatheter, EVERY 8 HOURS, First dose on Tue09/30/23 at 0045, Until Discontinued, Flush peripheral IV catheter with 3 mL of normal saline every 8 hours. And 0.9% NaCl injection 1-10 mLJump to med 1-10 mL, Intracatheter, PRN, Other, peripheral line flush, Starting on Tue09/30/23 at 0005, Until Tue10/05/23 at 1522, Flush peripheral IV catheter with 1-10 mL of normal saline before and after medications and prn to clear blood from the line or to verify patency. documented in this encounter Care Teams Program Development Manager Relationship Specialty Start Date End Date Yanira Meyers, PROMOTION SPECIALIST-[employer]AT[employer] [id number] [place] [id number] PCP - General Nurse Practitioner Family 06/15/23 documented as of this encounter
--- OUTSIDE RECORDS SUMMARY | 2024-10-15 16:32 | XMS_ITS | Encounter Summary ---
Author Organization [facility] Address [address] [facility] [place] [address] Care Team Providers Care Bat Lathe Operator Name Role Phone Diana Mao MD Primary Care Provider [phone] Reason for Referral * Radiology Services (Routine) - Closed Specialty Diagnoses / Procedures Referred By Contac t Referred To Contact Vascular Lab Diagnoses Hypertensive chronic kidney disease with stage 1 through stage 4 chronic kidney disease, or unspecified chronic kidney disease Procedures IR CENTRAL VENOUS CATH CHECK Leland Thompson MD [address] [place] [address] [place] [phone], [address] [address] Referral ID Status Reason Start Date Expiration Date Visits Re quested Visits Authorized [id number] Closed 03/31/2023 03/30/2024 1 1 * Radiology Services (Routine) - Closed Specialty Diagnoses / Procedures Referred By Contac t Referred To Contact Vascular Lab Diagnoses Hypertensive chronic kidney disease with stage 1 through stage 4 chronic kidney disease, or unspecified chronic kidney disease Procedures IR CENTRAL VENOUS [place] [id number] [place] [address] [address] [place] [address], [address] [place] [address] Referral ID Status Reason Start Date Expiration Date Visits Re quested Visits Authorized [id number] Closed 03/31/2023 03/30/2024 1 1 Reason for Visit * Radiology Services (Routine) - Closed Specialty Diagnoses / Procedures Referred By Contac t Referred To Contact Vascular Lab Diagnoses Hypertensive chronic kidney disease with stage 1 through stage 4 chronic kidney disease, or unspecified chronic kidney disease Procedures IR CENTRAL VENOUS CATH CHECK Leland Thompson MD [address] [place] [address] [place] [phone] [facility] [address] [place] [address], [place] [address] Referral ID Status Reason Start Date Expiration Date Visits Re quested Visits Authorized [id number] Closed 03/31/2023 03/30/2024 1 1 Encounter Details Date Type Department Care Team (Latest Contact Info) Description 03/31/2023 2:01 PM CDT - 03/31/2023 11:59 PM CDT Hospital Encounter [facility] Health Vascular Services [address] [place] [address], [address] [address] Leland Thompson MD [address] [place] [phone] Discharge Disposition: Home or Self Care [...] Sign Reading Time Taken Comments Blood Pressure 234/130 03/31/2023 2:50 PM CDT Pulse 81 03/31/2023 2:50 PM CDT Temperature 36.8 ??C (98.2 ??F) 03/31/2023 2:15 PM CD T Respiratory Rate 20 03/31/2023 2:50 PM CDT Oxygen Saturation 94% 03/31/2023 2:50 PM CDT Inhaled Oxygen Concentration - - Weight - - Height - - Body Mass Index - - documented in this encounter Functional Status Functional [...] eyes once daily 2.5 mL 12/28/2021 04/07/2023 [place]-3 Fatty Acids (FISH OIL) 1200 MG oxybutynin (DITROPAN) 5 MG tablet TAKE 1 TABLET BY MOUTH EVERY DAY 90 tablet 1 12/25/2021 04/07/2023 polyethylene glycol 3350 (Miralax) 17 g packet Take 17 (seventeen) g by mouth 2 times daily 09/09/2022 senna (Senokot) 8.6 MG tablet Take 1 [...] 09/10/2022 04/07/2023 documented as of this encounter Progress Notes * Yesica Lugo RN - 03/31/2023 2:22 PM CDT Patient here for Right sided Centra Venous Catheter check. Patient had CVC exchange last week and Tuesday dialysis went fine however today as soon as patient dialysis treatment was initiated, patientformed a small hematoma at cath insertion site. documented in this encounter H&P Notes * Leland Thompson MD - 03/31/2023 2:12 PM CDT Chief Complaint Swelling at catheter exit site during dialysis History and Physical Kirsty Rea is a 82 year old female who apparently had some swelling at the exit site during dialysis. The dialysis nurse became concerned that there was a problem with the catheter and we instructed them to send the patient over the office for evaluation. There is some mild swelling probably just a postoperative hematoma that is small at the exit site. Will check the catheter make sure there is no disruption. Past Medical History: Diagnosis Date ??? CKD (chronic kidney disease) stage 3, GFR 30-59 ml/min (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 HTN (hypertension), benign ??? 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 Morphea ??? Osteopenia Past Surgical History: Procedure Laterality Date ??? Appendectomy ??? Breast Reduction ??? Cholecystectomy, Laparoscopic ??? HX FRACTURE TX ??? OOPHORECTOMY 1971 ??? Parathyroidectomy 1999 Allergies [...] needed for Shortness of Breath or Wheezing ??? ALPRAZolam (Xanax) 0.25 MG tablet ??? busPIRone (Buspar) 5 MG tablet Take 1 (one) tablet by mouth 3 times daily ??? cloNIDine (Catapres) 0.2 MG/24HR patch Apply 1 (one) patch to skin every 7 days (Patient not taking: Reported on 03/23/2023) ??? epoetin deyanira-EPBX (Retacrit) 4000 UNIT/ML injection 2 mL by Intravenous route Give in dialysis on Tuesday, & Tuesday (Patient not taking: Reported on 03/23/2023) ??? hydrALAZINE (Apresoline) 100 MG tablet Take 1 (one) tablet by mouth 3 times daily (Patient not taking: Reported on 03/23/2023) ??? labetalol (Normodyne; Trandate) 200 MG tablet Take 1 (one) tablet by mouth 2 times daily ??? lisinopril (Prinivil; Zestril) 20 MG tablet Take 1 (one) tablet by mouth once daily ??? losartan (Cozaar) 100 MG tablet Take 1 (one) tablet by mouth once daily (Patient not taking: Reported on 03/23/2023) ??? olopatadine (PATADAY) 0.2 % ophthalmic solution Instill 1 (one) drop into both eyes once daily (Patient not taking: Reported on 03/23/2023) 2.5 mL 0 ??? [place]-3 Fatty Acids (FISH OIL) 1200 MG (Patient not taking: Reported on 03/23/2023) ??? oxybutynin (DITROPAN) 5 MG tablet TAKE 1 TABLET BY MOUTH EVERY DAY (Patient not taking: Reported on 03/23/2023) 90 tablet 1 ??? polyethylene glycol 3350 (Miralax) 17 g packet Take 17 (seventeen) g by mouth 2 times daily (Patient not taking: Reported on 03/23/2023) ??? senna (Senokot) 8.6 MG tablet Take 1 (one) tablet by mouth once daily as needed for Constipation (Patient not taking: Reported on 03/23/2023) ??? senna-docusate (Senokot-S) 8.6-50 MG tablet Take 1 (one) tablet by mouth 2 times daily (Patientnot taking: Reported on 03/23/2023) ? ? vitamin B complex w/ C 60mg & FA 0.8mg (Nephro-Donna) 0.8 MG TABS tablet Take 1 (one) tabletby mouth once daily (Patient not taking: Reported on 03/23/2023) No current facility-administered medications on file prior to encounter. Social History Tobacco Use ??? Smoking status: Former Packs/day: 1.00 Types: Cigarettes Start date: 10/31/1965 Quit date: 10/31/1983 Years since quittin.4 ??? Smokeless tobacco: Never Vaping Use ??? Vaping status: Never Used Substance Use Topics ??? Alcohol use: Yes Alcohol/week: 0.8 standard drinks of alcohol ??? Drug use: No Family History Problem [...] Musculoskeletal: Extremities are warm and well perfused. Mild swelling around the catheter site with bruising that appears remote. Neurologic: Intact. SEDATION PLAN: minimal ASA? Physical Status Classification: 3 (A patient with severe systemic disease) Patient airway and condition has been evaluated immediately prior to sedation and/or analgesia: Yes. I have discussed with the patient all options, including risks and benefits. The patient wishes to proceed with fistulogram. Impression/Plan: ESRD with mild swelling around the exit site of the tunneled catheter. Will do a catheter check to make sure there is no disruption. Most likely this is postoperative in nature. I have discussed the risks, benefits and alternatives with the patient who understands and wishes to proceed. documented in this encounter Procedure Notes * Leland Thompson MD - 03/31/2023 2:57 PM CDTAssociated Order(s): IR CENTRAL VENOUS CATH CHECK [facility] Kirsty Rea 1940 DATE OF PROCEDURE: 03/31/2023 ORDERING PHYSICIAN: Donna PROCEDURE: Tunneled dialysis catheter check. SVC cavogram INDICATIONS FOR PROCEDURE: Reported hematoma around dialysis catheter by dialysis center DESCRIPTION OF PROCEDURE: Patient was brought to procedure room prepped and draped sterilely. Both ports were injected with contrast and no evidence of extravasation was seen. Both ports aspirated easily and flushed easily. Both ports were heparinized and dressed sterilely. A total of 10 cc of contrast and 1.0 mGy radiation were used for the procedure. The catheter is ready for immediate use. FINDINGS: Patent dialysis catheter without obstruction of flow or evidence of leak IMPRESSION: Patent tunneled dialysis catheter right IJ without evidence of leak. DICTATED BY: Leland Thompson M.D. DATE DICTATED: 03/31/2023 Interventional Post-Operative/Procedure Notes Surgeon: Donna Pre Procedure Diagnosis: ESRD Post Procedure Diagnosis: ESRD Anesthesia: Local 1% lidocaine and IV sedation Disposition: OPS Status: Stable Drain or Pack: None Additional Information/Complications: None Estimated Blood Loss: Negligible Specimen: None documented in this encounter Plan of Treatment Upcoming Encounters Date Type Department Care Team (Late st Contact Info) Description 12/11/2024 10:30 AM OXYGEN SYSTEM TESTER Appointment [facility] Vascular Services [address] [facility], [facility] [address] [place] [address] Jarett Reinoso MD [address] [place] [address] Christine Benitez MD [address] [place] [id number] Keyshawn Krueger MD [address] [place] [address] [place] [address] [phone] documented as of this encounter Procedures Procedure Name Priority Date/Time Associated Diagnosis Comments CARDIAC RHYTHM STRIP ORDER 04/08/2023 1:03 AM CDT IR CENTRAL VENOUS CATH CHECK Routine 03/31/2023 2:47 PM CDT Hypertensive chronic kidney disease with stage 1 through stage 4 chronic kidney disease, or unspecified chronic kidney disease documented in this encounter Results * CARDIAC RHYTHM STRIP ORDER (04/08/2023 1:03 AM CDT) Narrative 04/08/2023 1:03 AM CDT Ordered by an unspecified provider. Scanned Document CARDIAC SERVICES ORD ERABLES * IR CENTRAL VENOUS CATH CHECK (03/31/2023 2:47 PM CDT) Anatomical Region Laterality Modality X-Ray Angiograph y Narrative 03/31/2023 2:57 PM CDT Leland Thompson MD ? 03/31/2023 ??3:00 PM [facility] Kirsty Rea 1940 DATE OF [...] IJ without evidence of leak. DICTATED BY: Tay Hollingsworth DICTATED: 03/31/2023 Interventional Post-Operative/Procedure Notes Surgeon: ? Donna Pre Procedure Diagnosis: ?? ESRD Post Procedure Diagnosis: ?? ESRD Anesthesia: ? Local 1% lidocaine and IV sedation Disposition: ? OPS Status: ? Stable Drain or Pack: ?None Additional Information/Complications: None Estimated Blood Loss: ?? Negligible Specimen: ? None Leland Thompson MD IR ORDERABLES documented in this encounter Visit Diagnoses Diagnosis Hypertensive chronic kidney disease with stage 1 through stage 4 chronic kidney disease, or unspecified chronic kidney disease- Primary documented in this encounter Administered Medications Inactive Administered Medications - up to 3 most recent administrations Medication Order MAR Action Action Date Dose Rate Site 0.9% NaCl infusion at 50 mL/hr, Intravenous, INTRA-PROCEDURE MULTIPLE, Starting on Rebekah 03/31/23 at 1419, Until Tue04/01/23 at 0135, Intra-procedure (IR) $ New Bag/Syringe 03/31/2023 2:49 PM CDT 20 mL 50 mL/hr heparin injection 2,000 Units 2,000 Units, Intracatheter, INTRA-PROCEDURE MULTIPLE, Starting on Rebekah 03/31/23 at 1419, Until Tue04/01/23 at 0135 $ Given 03/31/2023 2:49 PM CDT 2,000 Units iopamidol (Isovue 300) 61 % contrast Intravenous, INTRA-PROCEDURE MULTIPLE, Starting on Rebekah 03/31/23 at 1419, Until Tue04/01/23 at 0135, Intra/Post-procedure $ Given - Contrast 03/31/2023 2:49 PM CDT 10 mL documented in this encounter Care Teams Bat Lathe Operator Relationship Specialty Start Date End Date Diana Mao MD [address] [place] [address] PCP - General 08/05/17 06/14/23 documented as of this encounter
--- OUTSIDE RECORDS SUMMARY | 2024-10-15 16:32 | XMS_ITS | Encounter Summary ---
Author Organization [facility] Address [address] [facility] [place] [address] Care Team Providers Care Unix Engineer Name Role Phone Diana Mao MD Primary Care Provider [phone] Reason for Referral * Radiology Services (Routine) - Closed Specialty Diagnoses / Procedures Referred By Contac t Referred To Contact Vascular Lab Diagnoses ESRD (end stage renal disease) (HCC) Procedures IR CENTRAL LINE Christine Sebastian MD [address] [place] [address] [address] Referral ID Status Reason Start Date Expiration Date Visits Re quested Visits Authorized [id number] Closed 03/23/2023 03/22/2024 1 1 * Radiology Services (Routine) - Closed Specialty Diagnoses / Procedures Referred By Contac t Referred To Contact Vascular Lab Diagnoses ESRD (end stage renal disease) (HCC) Procedures IR CENTRAL LINE Christine Sebastian MD [address] [place] [address], [address] [address] Referral ID Status Reason Start Date Expiration Date Visits Re quested Visits Authorized [id number] Closed 03/23/2023 03/22/2024 1 1 Reason for Visit * Radiology Services (Routine) - Closed Specialty Diagnoses / Procedures Referred By Contac t Referred To Contact Vascular Lab Diagnoses ESRD (end stage renal disease) (HCC) Procedures IR CENTRAL LINE REPLACE Christine Benitez MD [address] [place] [address] [facility] [address] [place] [address] Referral ID Status Reason Start Date Expiration Date Visits Re quested Visits Authorized [id number] Closed 03/23/2023 03/22/2024 1 1 Encounter Details Date Type Department Care Team (Latest Contact Info) Description 03/23/2023 12:42 PM CDT - 03/23/2023 11:59 PM CDT Hospital Encounter [facility] Health Vascular Services [id number] [place] [address], [address] [address] Christine Benitez MD [address] [place] [phone] Discharge Disposition: Home or Self Care [...] Sign Reading Time Taken Comments Blood Pressure 207/124 03/23/2023 2:00 PM CDT Pulse 80 03/23/2023 2:00 PM CDT Temperature 37.2 ??C (98.9 ??F) 03/23/2023 1:11 PM CD T Respiratory Rate 25 03/23/2023 2:00 PM CDT Oxygen Saturation 92% 03/23/2023 2:00 PM CDT Inhaled Oxygen Concentration - - Weight 54.4 kg (120 lb) 03/23/2023 1:11 PM CDT Height 172.7 cm (5' 8 ) 03/23/2023 1:11 PM CDT Body Mass Index 18.25 03/23/2023 1:11 PM CDT documented in this encounter Functional Status [...] by mouth 3 times daily 09/09/2022 04/07/2023 labetalol (Normodyne; Trandate) 200 MG tablet Take [...] eyes once daily 2.5 mL 12/28/2021 04/07/2023 [place]-3 Fatty Acids (FISH OIL) 1200 MG 3 [...] Progress Notes * Kaylyn Gtz RN - 03/23/2023 1:14 PM CDT Patient has right hemodialysis catheter and center is having issues. Here for catheter exchange. documented in this encounter H&P Notes * Christine Benitez MD - 03/23/2023 1:21 PM CDT Chief Complaint ESRD History and Physical Kirsty Rea is a 82 year old female. ESRD, poor functioning cathter Past Medical History: Diagnosis Date ??? CKD (chronic kidney disease) stage 3, GFR 30-59 ml/min ([facility]) proteinuria; Consultative Sales Associate = Dr. Reyes ??? HTN (hypertension), benign ??? 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 Morphea ??? [...] Reported on 03/23/2023) 2.5 mL 0 ??? [place]-3 Fatty Acids (FISH OIL) 1200 MG (Patient [...] Procedure Notes * Christine Benitez MD - 03/23/2023 2:02 PM CDTAssociated Order(s): IR CENTRAL LINE REPLACE Surgeon: Christine Benitez MD Pre-Procedure diagnosis: ESRD Time out and final pre-procedure assessment completed immediately prior to start of procedure. Medications reviewed. Post-Procedure diagnosis: Same Anesthesia: Local Technical Procedure Performed: Tunneled right IJ hemodialysis catheter exchange Findings: After informed consent was obtained the patient was placed supine on the angiogram table in the right chest around the existing catheter site was prepped and draped in the usual sterile fashion. Anesthesia was obtained with lidocaine. The catheter cuff was freed of scar tissue. 0.035 Bentson wires were passed through each lumen and advanced into the inferior vena cava under fluoroscopy.The existing catheter was removed min exchanged for a longer 23 cm tip to cuff catheter. The tip was advanced under fluoroscopy into the right atrium. Both lumens flushed and aspirated easily and were appropriately packed with heparin. The catheter was secured to the patient using 2-0 Prolene sutures. The patient tolerated the procedure well. Radiation exposure 4.7 mGy Disposition: Home Status: Stable Drain or Pack: None Additional information/Complications: None Estimated blood loss: negligible Specimen(s) removed: No Specimen During the post-procedure debrief all intra-procedure verbal order medications ordered by the proceduralist were reviewed and authenticated. documented in this encounter Plan of Treatment Upcoming Encounters Date Type Department Care Team (Late st Contact Info) Description 12/11/2024 10:30 AM LENS INSPECTOR Appointment [facility] Vascular Services [address] [facility] [address] [place] [address] Jarett Reinoso MD [address] [place] [address] Christine Benitez MD [address] [place] [address] Keyshawn Krueger MD [address] [place] [address] [place] [address] [phone] documented as of this encounter Procedures Procedure Name Priority Date/Time Associated Diagnosis Comments CARDIAC RHYTHM STRIP ORDER 03/30/2023 11:10 PM CDT IR CENTRAL LINE REPLACE Routine 03/23/2023 2:00 PM CDT ESRD (end stage renal disease) (HCC) documented in this encounter Results * CARDIAC RHYTHM STRIP ORDER (03/30/2023 11:10 PM CDT) Narrative 03/30/2023 11:10 PM CDT Ordered by an unspecified provider. Scanned Document CARDIAC SERVICES ORD ERABLES * IR CENTRAL LINE REPLACE (03/23/2023 2:00 [...] 50 mL/hr, Intravenous, INTRA-PROCEDURE MULTIPLE, Starting on Tue03/23/23 at 1307, Until Rebekah 03/24/23 at 0136, Intra-procedure (IR) $ New Bag/Syringe 03/23/2023 2:08 PM CDT 125 mL 50 mL/hr heparin 1000 units/ml injection ADS Med 1 dose, Starting on Tue03/23/23 at 1319, Until Tue03/23/23 at 1408, Created by cabinet override heparin injection 1,000 Units 1,000 Units, Intravenous, INTRA-PROCEDURE MULTIPLE, Starting on Tue03/23/23 at 1308, Until Rebekah 03/24/23 at 0136, Intra-procedure (IR) $ Given 03/23/2023 2:08 PM CDT 1,000 Units $ Given 03/23/2023 2:07 PM CDT 1,000 Units lidocaine (Xylocaine PF) 1% injection ADS Med 1 dose, Starting on Tue03/23/23 at 1316, Until Tue03/23/23 at 1407, Created by cabinet override lidocaine PF (Xylocaine MPF) 1 % injection Infiltration, INTRA-PROCEDURE MULTIPLE, Starting on Tue03/23/23 at 1307, Until Rebekah 03/24/23 at 0136, Intra-procedure (IR) $ Given 03/23/2023 2:07 PM CDT 110 mg documented in this encounter Care Teams Unix Engineer Relationship Specialty Start Date End Date Diana Mao MD [address] [place] [address] PCP - General 08/05/17 06/14/23 documented as of this encounter
--- OUTSIDE RECORDS SUMMARY | 2024-10-15 16:32 | XMS_ITS | Encounter Summary ---
Author Organization [facility] Address [address] [place] [address] Care Team Providers Care Clean Room Technician Name Role Phone Ruizkyrie Yanira Kahlil WEIGHT CHECKER-ANIMAL CARE SERVICE WORKER Primary Care Provid er Reason for Visit * Auth/Cert (Routine) Specialty Diagnoses / Procedures Referred By Abena torrez Referred To Contact Procedures INSERTION GRAFT ARTERIO-VENOUS (AV) ARM Referral ID Status Reason Start Date Expiration Date Visits Re quested Visits Authorized [id number] 1 1 Encounter Details Date Type Department Care Team (Late st Contact Info) Description 06/15/2023 12:10 PM CDT Anesthesia Event [facility] - Perioperative Surgery [address] [place] [address] [place] [address] [place] [address] Josie Sylvester APRN-CAMP NURSE [address] [facility] [place] [address] Anesthesia Record Procedure Summary Procedure Name Responsible Anesthesiologist Anesthesia Start Time Anesthesia Stop Time LEFT UPPER ARM ARTERIOVENOUS GRAFT (Left: Arm) Jacob Maurice MD 06/15/23 1210 06/15/23 1345 Events Date Time Event Comment 06/15/2023 1136 1210 An Start 1210 An Start Data 1210 PT Reassessment 1217 Electnc Sig This record is electronically signed by the providers listed under staff. 1225 Timeout Anesthesia part icipated in timeout at the time documented in the record by nursing. 1340 an stop data 1340 ANPTO2 1345 An Stop Meds Name Total fentaNYL 100 mcg/2mL injection 100 mcg propofol 1000 mg/100mL infusion 175.26 m g ondansetron 4 mg/2mL injection 4 mg bupivacaine 0.5% - epinephrine 1:200,000 (PF) injection 30 mL hydrALAZINE 20 mg/mL injection 10 mg ceFAZolin 1 g vial 2 g heparin 1,000 units/mL - 1mL injection 3 ,000 Units 0.9% NaCl infusion 0 mL * Agents Name Exp. N2O O2 * Blood No blood administrations on file. Lines, Drains, and Airways Type Details Placement Removal Hemodialysis AV Access 06/15/23; 1243; Graft; Left Upper Arm 06/15/23 1243 by Teresa Farfan RN Hemodialysis Tunneled Catheter 03/23/23; Kahlil F Emmanuel; Subclavian; Right; Angiodynamics; DuraFlow2; [id number]; [id number]; 15.5; 285; 08/03/23 03/23/23 0000 by Dinah Jean-Baptiste RN 08/03/23 0000 by Marilou Junior RN Peripheral IV Date: 06/15/23; Time: 1059; Orientation: Right; Placed By: URI BOSS; Tolerance: Well 06/15/23 1059 by Vinnie Mares RN 06/15/23 1355 by Vinnie Mares RN Procedural Site (Incision) 06/15/23; 1227; Anterior, Left, Upper, Distal; Arm; 06/15/23; 212906/15/23 1227 by Teresa Farfan RN 06/15/230 by Generic, Auto Release Procedural Site (Incision) 06/15/23; 1240; Anterior, Left, Proximal, Upper; Arm; 06/15/23; 212906/15/23 1240 by Teresa Farfan RN 06/15/230 by Generic, Auto Release documented in this encounter Social History Tobacco Use Types Packs/Day Years [...] Yes 08/15/2022 documented as of this encounter Progress Notes * Josie Sylvester, WEIGHT CHECKER-CAMP NURSE - 06/15/2023 1:45 PM CDT ANESTHESIA POSTOP EVALUATION NOTE Procedure: LEFT UPPER ARM ARTERIOVENOUS GRAFT (Left: Arm) Kirsty Rea is a 82 year old female Patient Vitals for the past 6 hrs: BP Temp Pulse Resp SpO2 Pain Rating Score #1 Pain Scale/Observation Pulse - (SPO2/Cuff) 06/15/23 1049 (!) 232/95 97.1 ??F (36.2 ??C) 60 18 96 % 0 N -- 06/15/23 1116 (!) 248/109 -- -- -- 97 % -- -- 65 bpm 06/15/23 1125 (!) 242/134 -- -- -- 95 % -- -- 83 bpm 06/15/23 1126 (!) 263/118 -- -- -- 95 % -- -- 82 bpm Anesthesia Type: MAC w/ block * No Diagnosis Codes entered * Mental Status: awake Neuro Status: No numbess, tingling or visual disturbances Respiratory Function: natural Cardiac Function: stable Postop Pain: acceptable to the patient Postop Hydration: adequate Postop Nausea: none Assessment: no apparent anesthetic complications Patient Disposition: Release from Anesthesia Care NOTABLE EVENTS: No notable events documented. * Jacob Maurice MD - 06/15/2023 10:44 AM CDT ANESTHESIA PREOPERATIVE EVALUATION NOTE Procedure: LEFT UPPER ARM ARTERIOVENOUS GRAFT (Left: Arm) Vitals: No data found. LMP: No LMP recorded. Patient is postmenopausal. OB Status: Postmenopausal ANESTHESIA PRE-EVALUATION NOTE History of Present Illness: Pt with borderline dementia The patient is a current non-smoker. Physical Exam: Orientation X3 Airway/Mallampati Score: II Mouth Opening Distance: 3 fingerwidths Neck ROM: full TM Distance: > 3 FB Teeth: dentures/partials upper and dentures/partials lower Heart: normal - S1 S2 Lungs: clear to ausculation bilaterally Review of Systems: History of anesthetic complications: No Malignant Hyperthermia: No GERD: No Poor Exercise Tolerance: No Recent Chest Pain: No Shortness of Breath: No Renal Disease: Yes, patient on regularly scheduled dialysis Diagnostic Tests: ECG(s) reviewed: Yes Echo(s) reviewed: Yes. Lab(s) reviewed: Yes. ANESTHESIA PLAN ASA Score: 4 NPO Status: No solids since midnight Anesthesia Plan: regional Nerve Blocks: supraclavicular. Planned Induction: intravenous Planned Postop Destination: OPS Anesthetic plan was discussed with: patient Anesthetic Plan discussion was: Consented BMI, Height, Weight Tobacco History Estimated body mass index is 19.61 kg/m?? as calculated from the following: Height as of 04/11/23: 1.727 m (5' 8 ). Weight as of 04/11/23: 58.5 kg (129 lb). Social History Tobacco Use Smoking Status Former ??? Packs/day: 1.00 ??? Types: Cigarettes ??? Start date: 10/31/1965 ??? Quit date: 10/31/1983 ??? Years since quittin.6 Smokeless Tobacco Never Vaping Use ??? Vaping Use: Never used Alcohol History Drug History Social History Substance and Sexual Activity Alcohol Use Yes ??? Alcohol/week: 0.8 standard drinks of alcohol ??? Types: 1 Standard drinks or equivalent per week Comment: occasionally Social History Substance and Sexual Activity Drug Use No Outpatient Medications: Inpatient Medications: Outpatient Medications Marked as Taking for the 06/15/23 encounter (Hospital Encounter) Medication Sig Last Dose ??? acetaminophen Take 1 (one) tablet by mouth every 4 hours as needed for Fever, Pain or Headache Maximum allowable Acetaminophen amount = 4 Grams (4000 mg) / 24 hours. ??? ALPRAZolam Take 1 (one) tablet by mouth 3 times daily as needed for Anxiety ??? escitalopram Take by mouth once daily ??? hydroCHLOROthiazide Take 1 (one) capsule by mouth once daily ??? labetalol Take 1 (one) tablet by mouth 2 times daily ??? lanthanum Take 1 (one) tablet by mouth 3 times daily with meals ??? lisinopril Take 1 (one) tablet by mouth 2 times daily ??? memantine Take 1 (one) tablet by mouth 2 times daily ??? Multiple Vitamins-Minerals (PRESERVISION AREDS 2 PO) Take 1 tablet by mouth once daily Current Facility-Administered Medications Medication Dose Last Admin ??? 0.9% NaCl IV ??? 0.9% NaCl 3 mL And ??? 0.9% NaCl 1-10 mL ??? acetaminophen 1,000 mg ??? ceFAZolin 2 g ??? lidocaine 0.5 mL Allergies: Allergies Allergen Reactions ??? Ramipril Other Other reaction(s): Other (See Comments) Kidney Damage Kidney Damage Relevant Problems No relevant active problems Problem List: Patient Active Problem List Diagnosis Date Noted ??? Pleural effusion 08/23/2022 Priority: Not Prioritized ??? Aspiration pneumonia ([facility]) 08/23/2022 Priority: Not Prioritized ??? Dysphagia 08/23/2022 Priority: Not Prioritized ??? Hyponatremia 08/23/2022 Priority: Not Prioritized ??? Elevated troponin 08/23/2022 Priority: Not Prioritized ??? Hypoalbuminemia 08/23/2022 Priority: Not Prioritized ??? High anion gap metabolic acidosis 08/23/2022 Priority: Not Prioritized ??? Normocytic anemia 08/23/2022 Priority: Not Prioritized ??? Acute decompensated heart failure ([facility]) 08/23/2022 Priority: Not Prioritized ??? Respiratory failure with hypoxia ([facility] 08/23/2022 Priority: Not Prioritized ??? Hypertensive emergency 08/23/2022 Priority: Not Prioritized ??? Intracranial hemorrhage, nontraumatic ([facility] 08/15/2022 Priority: Not Prioritized ??? Cervicalgia 04/06/2019 Priority: Not Prioritized ??? Contact dermatitis and other eczema 04/06/2019 Priority: Not Prioritized ??? Hypertonicity of bladder 04/06/2019 Priority: Not Prioritized ??? Hypertrophy of breast 04/06/2019 Priority: Not Prioritized ??? Pain in joint, shoulder region 04/06/2019 Priority: Not Prioritized ??? Pain in thoracic spine 04/06/2019 Priority: Not Prioritized ??? Thoracic or lumbosacral neuritis or radiculitis 04/06/2019 Priority: Not Prioritized ??? Disorder of skin and subcutaneous tissue 04/06/2019 Priority: Not Prioritized ??? Neuroma of foot 09/08/2018 Priority: Not Prioritized ??? Encounter for routine gynecological examination 08/23/2018 Priority: Not Prioritized ??? Acute renal failure (ARF) ([facility]) 07/14/2015 Priority: Not Prioritized ??? Hypertensive chronic kidney disease with stage 1 through stage 4 chronic kidney disease, or unspecified chronic kidney disease 07/13/2015 Priority: Not Prioritized ??? Benign hypertensive heart disease 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 failure 06/23/2010 Priority: Not Prioritized ??? Mixed hyperlipidemia 06/23/2010 Priority: Not Prioritized ??? Osteoporosis 05/18/2017 ??? Hearing loss 05/18/2017 Medical History: Past Medical History: Diagnosis Date ??? Anxiety ??? CKD (chronic kidney disease) stage 3, GFR 30-59 ml/min [place] proteinuria; Cleaner Carpet And Upholstery = Dr. Reyse ??? CVA (cerebral vascular accident) ([facility]) 08/14/2022 ??? Dementia without behavioral disturbance ([facility]) mild ??? ESRD on dialysis ([facility]) ??? Gout ??? HTN (hypertension), benign ??? 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 Morphea ??? Osteopenia Surgical History: Past Surgical History: Procedure Laterality Date ??? Appendectomy ??? Breast Reduction ??? Cholecystectomy, Laparoscopic ??? HX FRACTURE TX ??? OOPHORECTOMY 1972 ??? 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 Patient is postmenopausal. Postmenopausal OB History Para Term AB Living 2 2 0 0 0 0 SAB IAB Ectopic Multiple Live Births 0 0 0 0 0 # Outcome Date GA Lbr Samuel/2nd Weight Sex Delivery Anes PTL Lv 2 Para 1 Para Covid Vaccine: Lab Results: Recent Labs Component Name 04/11/23 0736 SODIUM 134* POTASSIUM 4.0 CALCIUM 10.5* CHLORIDE 98 CO2 27 GLUCOSE 99 BUN 43* CREATININE 4.77* No results found for requested labs within last 120 days. Recent Labs Result Component Current Result Anion Gap 9 (04/11/2023) eGFR by CKD-EPI 9 (L) (04/11/2023) documented in this encounter Procedure Notes * Jacob Maurice MD - 06/15/2023 11:37 AM CDTAssociated Order(s): Peripheral Nerve Block Peripheral Nerve Block Procedure: Peripheral Nerve Block Patient Location: Pre-op Preprocedure Section: Indications: surgical anesthesia. Pre-anesthetic Checklist: Patient identified, IV Checked, Site examined and clear, Risks and benefits discussed, Surgical consent verified, Monitors and equipment, Time-out performed, Informed consent obtained, Pre-op evaluation done, Questions answered/anesthesia questions answered, Allergies reviewed and Removal hand/wrist jewelry Monitors: Pulse Ox. Patient Condition: sedated, meaningful contact maintained throughout procedure Patient Position: sitting Patient Sedated? No Procedure Section Laterality: left Block Performed: supraclavicular Prep: Chloraprep Strerile Field: gloves Needle Type: Echogenic insultaed Needle Length: 50 mm Ultrasound Guided? Yes Technique: out of plane Visualization: Preliminary scan performed, No intraneural or intravascular puncture occurred and Local visualized surrounding nerve on ultrasound Injection was made incrementally with constant monitoring and aspirations every 5 mL's Procedure Tolerance: tolerated well Staff Section Anesthesia Provider: Jacob Maurice MD, Performed the procedure documented in this encounter Miscellaneous Notes * Anesthesia Transfer of Care - Josie Sylvester, DOUGIE-CAMP NURSE - 06/15/2023 1:44 PM CDT ANESTHESIA TRANSFER OF CARE NOTE Today's Date: 06/15/2023 Date of : 1940 Patient: Kirsty Rea Procedure(s): LEFT UPPER ARM ARTERIOVENOUS GRAFT Surgeon(s): Primary: Leland Thompson MD Preop Diagnosis: * No Diagnosis Codes entered * Pre-op Meds (From admission, onward) Start Stop Status Route Frequency Ordered 06/15/23 1030 0.9% NaCl infusion 06/14/24 1029 Dispensed IV PRE-OP CONTINUOUS 06/15/23 1024 06/15/23 1024 0.9% NaCl injection 1-10 mL See Hyperspace for full Linked Orders Report. -- Dispensed IK PRN 06/15/23 1024 06/15/23 1400 0.9% NaCl injection 3 mL See Hyperspace for full Linked Orders Report. -- Dispensed IK EVERY 8 HOURS 06/15/23 1024 06/15/23 1324 0.9% nacl irrigation solution -- Sent CONTINUOUS PRN 06/15/23 1326 06/15/23 1030 acetaminophen (Tylenol) tablet 1,000 mg 06/15/23 2229 Verified PO PRE-OP ONCE 06/15/23 1024 06/15/23 1136 BUPivacaine 0.5% - EPINEPHrine 1:200,000 (PF) injection -- Sent INFILTRATION PRN 06/15/23 1137 06/15/23 1116 ceFAZolin (Ancef) 2 g in 0.9% NaCl IV 50 mL IVPB -- Dispensed IV PRE-OP MULTIPLE 06/15/23 1116 06/15/23 1219 ceFAZolin (Ancef) injection -- Sent IV PRN 06/15/23 1227 06/15/23 1136 fentaNYL (PF) (Sublimaze) injection -- Sent IV PRN 06/15/23 1136 06/15/23 1240 heparin injection -- Sent IV PRN 06/15/23 1240 06/15/23 1227 heparinized saline 2 units/mL infusion -- Sent CONTINUOUS PRN 06/15/23 1238 06/15/23 1136 hydrALAZINE (Apresoline) injection -- Sent IV PRN 06/15/23 1137 06/15/23 1226 lidocaine 2% - EPINEPHrine 1:100,000 injection -- Sent PRN 06/15/23 1238 06/15/23 1030 lidocaine PF (Xylocaine MPF) 1 % injection 0.5 mL 06/15/23 2229 Verified INFILTRATION PRE-OP ONCE 06/15/23 1024 06/15/23 1136 ondansetron (Zofran) injection -- Sent IV PRN 06/15/23 1137 06/15/23 1227 Oxidized Cellulose PADS -- Sent PRN 06/15/23 1328 06/15/23 1217 propofol (Diprivan) infusion -- Sent IV CONTINUOUS PRN 06/15/23 1238 06/15/23 1227 thrombin (Thrombogen; Thrombostat) kit -- Sent PRN 06/15/23 1239 * No Diagnosis Codes entered * . Allergies Allergen Reactions ??? Ramipril Other Other reaction(s): Other (See Comments) Kidney Damage Kidney Damage Vitals: Patient Vitals for the past 3 hrs: BP Temp Pulse Resp SpO2 Pain Rating Score #1 06/15/23 1126 (!) 263/118 -- -- -- 95 % -- 06/15/23 1125 (!) 242/134 -- -- -- 95 % -- 06/15/23 1116 (!) 248/109 -- -- -- 97 % -- 06/15/23 1049 (!) 232/95 97.1 ??F (36.2 ??C) 60 18 96 % 0 Lines, Drains, and Airways Type Details Placement Removal Peripheral IV Date: 06/15/23; Time: 1058; Orientation: Right; Location: Wrist; Placed By: URI BOSS; Gauge: 20 Gauge; Locals: Injectable; Tolerance: Well 06/15/23 1059 by Vinnie Mares RN Intraprocedure I/O Totals None Patient Transfer Location: PACU Transport Airway: spontaneous respirations and supplemental O2 Complications: None Handoff Given? Yes Checklist or Protocol - The german handoff elements that must be included in the transfer of care checklist include: 1. Identification of patient. 2. Identification of responsible practitioner (PACU nurse or advanced practitioner). 3. Discussion of pertinent medical history. 4. Discussion of the surgical/procedure course (procedure, reason for surgery, procedure performed). 5. Intraoperative anesthetic management and issue/concerns. 6. Expectations/Plans for the early post-procedure period. 7. Opportunity for questions and acknowledgement of understanding of report from the receiving PACUteam. MONISHA Chavira documented in this encounter Plan of Treatment Upcoming Encounters Date Type Department Care Team (Late st Contact Info) Description 12/11/2024 10:30 AM PATROL JUDGE Appointment [facility] Vascular Services [address] [facility] [address] [place], [place] [id number] Jarett Reinoso MD [address] [place], [place] [phone] Christine Benitez MD [address] [place] [phone] Keyshawn Krueger MD [address] [place], [place] [phone] [place] [address] [address] [phone] documented as of this encounter Procedures Procedure Name Priority Date/Time Associated Diagnosis Comments PERIPHERAL BLOCK Routine 06/15/2023 11:3 7 AM CDT documented in this encounter Results * Peripheral Nerve Block (06/15/2023 11:37 AM [...] Jacob Maurice MD GENERAL ANESTHESIA O RDERABLES documented in this encounter Visit Diagnoses Not on filedocumented in this encounter Administered Medications Inactive Administered Medications - up to 3 most recent administrations Medication Order MAR Action Action Date Dose Rate Site 0.9% NaCl infusion at 20 mL/hr, Intravenous, PRE-OP CONTINUOUS, Starting on Tue06/15/23 at 1030, Until Tue06/15/23 at 1630, For Dialysis or Chronic Renal Failure patients. Use 500 ml bag and micro drip tubing, Pre-op $ New Bag/Syringe 06/15/2023 11:18 AM CDT BUPivacaine 0.5% - EPINEPHrine 1:200,000 (PF) injection Infiltration, PRN, Starting on Tue06/15/23 at 1136, Until Tue06/15/23 at 1345, Anesthesia Intra-op $ Given 06/15/2023 11:36 AM CDT 30 mL ceFAZolin (Ancef) injection Intravenous, PRN, Starting on Tue06/15/23 at 1219, Until Tue06/15/23 at 1345, Anesthesia Intra-op $ Given 06/15/2023 12:19 PM CDT 2 g fentaNYL (PF) (Sublimaze) injection Intravenous, PRN, Starting on Tue06/15/23 at 1136, Until Tue06/15/23 at 1345, Anesthesia Intra-op $ Given 06/15/2023 11:36 AM CDT 100 mcg heparin injection Intravenous, PRN, Starting on Tue06/15/23 at 1240, Until Tue06/15/23 at 1345, Anesthesia Intra-op $ Given 06/15/2023 12:40 PM CDT 3,000 Units hydrALAZINE (Apresoline) injection Intravenous, PRN, Starting on Tue06/15/23 at 1136, Until Tue06/15/23 at 1345, Anesthesia Intra-op $ Given 06/15/2023 11:36 AM CDT 10 mg ondansetron (Zofran) injection Intravenous, PRN, Starting on Tue06/15/23 at 1136, Until Tue06/15/23 at 1345, Anesthesia Intra-op $ Given 06/15/2023 11:36 AM CDT 4 mg propofol (Diprivan) infusion Intravenous, CONTINUOUS PRN, Starting on Tue06/15/23 at 1217, Until Tue06/15/23 at 1345, Anesthesia Intra-op Rate Change 06/15/2023 12:56 PM CDT 40 mcg/kg/min 13.248 mL/hr Rate Change 06/15/2023 12:32 PM CDT 50 mcg/kg/min 16.56 mL /hr $ New Bag/Syringe 06/15/2023 12:17 PM CDT 25 mcg/kg/min 8. 28 mL/hr documented in this encounter Care Teams Clean Room Technician Relationship Specialty Start Date End Date Yanira Meyers APRN-ANIMAL CARE SERVICE WORKER [address] [place] [phone] PCP - General Nurse Practitioner Family 06/15/23 documented as of this encounter
--- OUTSIDE RECORDS SUMMARY | 2024-10-15 16:32 | XMS_ITS | Encounter Summary ---
Author Organization [facility] Address [address] [place] [address] Care Team Providers Care Management Trainee Marketing Name Role Phone Diana Mao MD Primary Care Provider [phone] Reason for Visit * Auth/Cert (Routine) Specialty Diagnoses / Procedures Referred By Abena torrez Referred To Contact Procedures INSERTION GRAFT ARTERIO-VENOUS (AV) ARM Referral ID Status Reason Start Date Expiration Date Visits Re quested Visits Authorized [id number] 1 1 Encounter Details Date Type Department Care Team (Latest Contact Info) Description 04/11/2023 7:08 AM CDT - 04/11/2023 8:30 AM CDT Hospital Encounter [facility] - Perioperative Surgery [address] [place] [address] [place] [address] [facility] [address] [place] [address] Surgery General Discharge Disposition: Home or Self Care Social [...] female. The patient is referred by her brand marketing manager for a catheter that was not working well. She has never had evaluation for access in the past. PCP is Diana Mao MD. She is right handed. She has poor peripheral veins. ?? Past Medical & Surgical History Past Medical History: Diagnosis Date ??? CKD (chronic kidney disease) stage 3, GFR 30-59 ml/min ([facility]) ? proteinuria; Case Maker = Dr. Reyes ??? HTN (hypertension), benign ? Hyperparathyroid bone disease ([facility]) ? s/p surgery ??? Morphea ? Osteopenia [...] st Contact Info) Description 12/11/2024 10:30 AM BUTTON SAWYER Appointment [facility] Vascular Services [address] [facility] [address] [place] [address] Jarett Reinoso MD [address] [place], [place] [phone] Christine Benitez MD [address] [place] [phone] Keyshawn Krueger MD [address] [place], [place] [phone] Armando Ferro, [address] [phone] documented as of this encounter Procedures Procedure Name Priority Date/Time Associated Diagnosis Comments BASIC METABOLIC PANEL (CALCIUM TOTAL) STAT 04/11/2023 7:36 AM CDT Preop examination documented in this encounter Results * (ABNORMAL) BASIC METABOLIC PANEL (CALCIUM TOTAL) (04/11/2023 7:36 AM CDT) Glucose 99 70 - 105 mg/dL 04/11/2023 8:09 AM CDT [facility] Sodium 134(L) 136 - 145 mmol/L 04/11/2023 8:09 AM CDT [facility] Potassium 4.0 3.5 - 5.1 mmol/L 04/11/2023 8:09 AM CDT [facility] Chloride 98 98 - 107 mmol/L 04/11/2023 8:09 AM CDT [facility] CO2 27 23 - 31 mmol/L 04/11/2023 8:09 AM CDT [facility] Calcium 10.5(H) 8.4 - 10.4 mg/dL 04/11/2023 8:09 AM CDT [facility] Anion Gap 9 8 - 18 mmol/L 04/11/2023 8:09 AM CDT [facility] BUN 43(H) 9.8 - 20.1 mg/dL 04/11/2023 8:09 AM CDT [facility] Creatinine 4.77(H) 0.57 - 1.11 mg/dL 04/11/2023 8:09 AM T [facility] eGFR by CKD-EPI 9(L) >=90 mL/min/1.7 3 m2 04/11/2023 8:09 AM T [facility] Blood BLOOD SPECIMEN / Unknown Venipuncture / Unknown 04/11/2023 7:36 AM CDT 04/11/2023 7:51 AM CDT Zohra Peng DO LAB - CHEMISTRY PATRICIA CASIANO Performing Organization Address City/State/[facility] Co de Phone Number [facility] [address] [place] [phone] documented in this encounter Visit Diagnoses Diagnosis Preop examination- Primary Preoperative examination, unspecified documented in this encounter Administered Medications Inactive [...] patients not allergic to local anesthetics., Pre-op 08 ($ Given - Prov ider: Carolyn Hanson RN) Continuous Medication Order 04/09/2023 04/10/2023 04/11/2023 0.9% NaCl infusion at 20 mL/hr, Intravenous, [...] Pre-op documented in this encounter Care Teams Management Trainee Marketing Relationship Specialty Start Date End Date Diana Mao MD [address] [place] [address] PCP - General 08/05/17 06/14/23 documented as of this encounter
--- OUTSIDE RECORDS SUMMARY | 2024-10-15 16:32 | XMS_ITS | Encounter Summary ---
Author Organization [facility] Address [address] [place] [address] Care Team Providers Care Bean Sprout Grower Name Role Phone Diana Mao MD Primary Care Provider [phone] Encounter Details Date Type Department Care Team (Late st Contact Info) Description 04/11/2023 9:05 AM CDT Anesthesia Event [facility]ly [facility] - Perioperative Surgery [address] [place], [place] [id number] Freeman Overotn MD [address] [place], [place] [id number] Anesthesia Record Procedure Summary Procedure Name Responsible Anesthesiologist Anesthesia Start Time Anesthesia Stop Time INSERTION GRAFT ARTERIO-VENOUS (AV) ARM (Left: Arm) Events Date Time Event Comment 04/13/2023 1930 AN Not Meds * Agents No agents on file. * Blood No blood administrations on file. Lines, Drains, and Airways Type Details Placement Removal Hemodialysis AV Access 06/15/23; 1243; G raft; Left Upper Arm 06/15/23 1243 by Teresa Farfan RN documented in this encounter Social History Tobacco [...] as of this encounter Progress Notes * Freeman Overton MD - 04/11/2023 8:13 AM CDT ANESTHESIA PREOPERATIVE EVALUATION NOTE Procedure: INSERTION GRAFT ARTERIO-VENOUS (AV) ARM (Left: Arm) NPO status: Since Midnight (04/11/2023 7:49 AM) Vitals: Patient Vitals for the past 6 hrs: BP Temp Pulse Resp 04/11/23 0800 (!) 247/100 -- -- -- 04/11/23 0750 (!) 239/100 97.4 ??F (36.3 ??C) 70 16 LMP: No LMP recorded. Patient is postmenopausal. OB Status: Postmenopausal ANESTHESIA PRE-EVALUATION NOTE The patient is a current non-smoker. Physical Exam: Orientation X3 Airway/Mallampati Score: III Mouth Opening Distance: 3 fingerwidths Neck ROM: full TM Distance: > 3 FB Heart: normal - S1 S2 Lungs: clear to ausculation bilaterally (PT ON VENTI MASK) Abdomen Exam: obese and distended Review of Systems: History of anesthetic complications: No Diagnostic Tests: ECG(s) reviewed: Yes Lab(s) reviewed: Yes. ANESTHESIA PLAN ASA Score: 4 NPO Status: No liquids within 2 hours and No solids since midnight Anesthesia Plan: MAC and regional Nerve Blocks: supraclavicular. Planned Induction: intravenous Planned Postop Destination: PACU Anesthetic plan was discussed with: patient, family Anesthetic Plan discussion was: Consented The patient's procedural Anesthetic Plan was discussed with the MANAGER DECISION SUPPORT and anesthesiologist. Overall additional findings/comments: Discussed risks of block to include but not limited to bleeding, infection, nerve damage, and block failure. Discussed care with extremity following block given loss of sensation and motor function. Discussed length of time block is expected to last. Patient came in today short of breath. She does not currently wear home oxygen. Additionally her systolic BP has been 220-240's this AM. She last had dialysis Tuesday. She states this is the normal course prior to dialysis. She has dialysis scheduled tomorrow. We post pone her and have her come inTuesday. I have called her direct chill casting operator, Dr. Leticia Reyes (currently on vacation), and left a message detailing our plan.. BMI, Height, Weight Tobacco History Estimated body mass index is 19.61 kg/m?? as calculated from the following: Height as of this encounter: 1.727 m (5' 8 ). Weight as of this encounter: 58.5 kg (129 lb). Social History Tobacco Use Smoking Status Former ??? Packs/day: 1.00 ??? Types: Cigarettes ??? Start date: 10/31/1965 ??? Quit date: 10/31/1983 ??? Years since quittin.4 Smokeless Tobacco Never Vaping Use Vaping Status Never Used Alcohol History Drug History Social History Substance and Sexual Activity Alcohol Use Yes ??? Alcohol/week: 0.8 standard drinks of alcohol ??? Types: 1 Standard drinks or equivalent per week Comment: occasionally Social History Substance and Sexual Activity Drug Use No Outpatient Medications: Inpatient Medications: Outpatient Medications Marked as Taking for the 04/11/23 encounter (Hospital Encounter) Medication Sig Last Dose ??? acetaminophen Take 1 (one) tablet by mouth every 4 hours as needed for Fever, Pain or Headache Maximum allowable Acetaminophen amount = 4 Grams (4000 mg) / 24 hours. 04/10/2023 ??? ALPRAZolam Take 1 (one) tablet by mouth 3 times daily as needed for Anxiety Past Week ??? busPIRone Take 1 (one) tablet by mouth 3 times daily 04/10/2023 ? ? epoetin deyanira-EPBX 2 mL by Intravenous route Give in dialysis on Tuesday, & Tuesday04/09/2023 ??? hydroCHLOROthiazide Take 1 (one) capsule by mouth once daily 04/10/2023 ??? labetalol Take 1.5 (one and one-half) tablets by mouth 2 times daily 04/10/2023 at 1700 ??? lanthanum Take 1 (one) tablet by mouth 3 times daily with meals 04/10/2023 ??? lisinopril Take 1 (one) tablet by mouth 2 times daily 04/10/2023 ??? memantine Take 1 (one) tablet by mouth 2 times daily 04/10/2023 ??? Multiple Vitamins-Minerals (PRESERVISION AREDS 2 PO) Take 1 tablet by mouth once daily 04/10/2023 Current Facility-Administered Medications Medication Dose Last Admin ??? 0.9% NaCl IV New Bag at 04/11/23 0805 ??? 0.9% NaCl 3 mL And ??? 0.9% NaCl 1-10 mL ??? ceFAZolin 2 g Allergies: Allergies Allergen Reactions ??? Ramipril Other Other reaction(s): Other (See Comments) Kidney Damage Kidney Damage Relevant Problems No relevant active problems Problem List: Patient Active Problem List Diagnosis Date Noted ??? Pleural effusion 08/23/2022 Priority: Not Prioritized ??? Aspiration pneumonia ([facility]) 08/23/2022 Priority: Not Prioritized ??? Dysphagia 08/23/2022 Priority: Not Prioritized ??? Hyponatremia 08/23/2022 Priority: Not Prioritized ??? Elevated troponin 08/23/2022 Priority: Not Prioritized ??? Hypoalbuminemia 08/23/2022 Priority: Not Prioritized ??? High anion gap metabolic acidosis 08/23/2022 Priority: Not Prioritized ??? Normocytic anemia 08/23/2022 Priority: Not Prioritized ??? Acute decompensated heart failure ([facility]) 08/23/2022 Priority: Not Prioritized ??? Respiratory failure with hypoxia ([facility]) 08/23/2022 Priority: Not Prioritized ??? Hypertensive emergency 08/23/2022 Priority: Not Prioritized ??? Intracranial hemorrhage, nontraumatic ([facility]) 08/15/2022 Priority: Not Prioritized ??? Cervicalgia 04/06/2019 [...] Not Prioritized ??? Acute renal failure (ARF) ([facility]) 07/14/2015 Priority: Not Prioritized ??? Hypertensive chronic kidney disease with stage 1 through stage 4 chronic kidney disease, or unspecified chronic kidney disease 07/13/2015 Priority: Not Prioritized ??? Benign hypertensive heart disease 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 failure 06/23/2010 Priority: Not Prioritized ??? Mixed hyperlipidemia 06/23/2010 Priority: Not Prioritized ??? Osteoporosis 05/18/2017 ??? Hearing loss 05/18/2017 Medical History: Past Medical History: Diagnosis Date ??? CKD (chronic kidney disease) stage 3, GFR 30-59 ml/min ([facility]) proteinuria; Ditching Machine Operating Engineer = Dr. Reyes ??? CVA (cerebral vascular accident) ([facility]) 08/14/2022 ??? ESRD on dialysis ([facility]) ??? HTN (hypertension), benign ??? 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 Morphea ??? Osteopenia Surgical History: Past Surgical History: Procedure Laterality Date ??? Appendectomy ??? Breast Reduction ??? Cholecystectomy, Laparoscopic ??? HX FRACTURE TX ??? OOPHORECTOMY 1972 ??? Parathyroidectomy 1999 CLINICAL OFFICE TECHNICIAN Status: No LMP recorded. Patient is postmenopausal. [...] 9 (L) (04/11/2023) documented in this encounter Plan of Treatment Upcoming Encounters Date Type Department Care Team (Late st Contact Info) Description 12/11/2024 10:30 AM POISER Appointment [facility] Vascular Services [address] [place] [address] Jarett Reinoso MD [address] [place], [place] [id number] Christine Benitez MD [address] [place] [phone] Keyshawn Krueger MD [address] [place], [place] [phone] Armando Ferro, [address] [phone] documented as of this encounter Visit Diagnoses Not on filedocumented in this encounter Care Teams Bean Sprout Grower Relationship Specialty Start Date End Date Diana Mao MD [address] [place] [address] PCP - General 08/05/17 06/14/23 documented as of this encounter
--- OUTSIDE RECORDS SUMMARY | 2024-10-15 16:32 | XMS_ITS | Encounter Summary ---
Author Organization [facility] Address [address] [place] [address] Care Team Providers Care Soap Tender Name Role Phone Diana Mao MD Primary Care Provider [phone] Encounter Details Date Type Department Care Team (Late st Contact Info) Description 04/21/2023 Orders Only [facility] Medical Group - Surgery [address], [address] [place] [address] [place] [address] [facility] [address] [place] [address] Social History Tobacco Use Types Packs/Day Years [...] Yes 08/15/2022 documented as of this encounter Patient Instructions * Patient Instructions* María Elena Lao E - 04/21/2023 3:47 PM CDT Patient Name: Kirsty Rea Your procedure has been scheduled for: Date: Tuesday05/18/2023 Approximate Arrival Time: 10:00AM You will be notified by the hospital regarding your exact arrival time. Surgeon: Place: [] Freeman Hogan M.D. [x][facility]:[address] [place] [address]. Patient Registration [] Momo Potter M.D. [] [facility] [x] Leland Thompson M.D. Ground Floor/[facility]. [] Hayley Willett M.D. [] [facility] [] Salvatore Guzman M.D First Floor Main Entrance [] Vilma Garcia D.O. [] Andrew Rothman M.D. [] Pawan Bangura D.O. [] Armando Ferro M.D. [] David Siu D.O. [] Ashish Hui M.D. [] Hilda Farooq M.D. INSTRUCTIONS: [x] Nothing to eat or drink after midnight. [x] Do take heart, blood pressure, or breathing medications with a sip of water the morning of surgery. [x] DO NOT take diabetic medication the morning of surgery as you will not be able to eat. [x] You will be having OUTPATIENT SURGERY. You will need someone to drive you home. Name of Procedure:LEFT UPPER ARM ARTERIOVENOUS GRAFT Your follow-up appointment is: Date:Tuesday06/01/2023 Time: 10:00AM documented in this encounter Plan of Treatment Upcoming Encounters Date Type Department Care Team (Late st Contact Info) Description 12/11/2024 10:30 AM DIRECTOR OF SPA AND GUEST EXPERIENCE Appointment [facility] Vascular Services [address], [address] [place] [address] Jarett Reinoso MD [address] [place], [place] [phone] Christine Benitez MD [address] [place] [phone] Keyshawn Krueger MD [address] [place] [address] Armando Ferro, [address] [phone] documented as of this encounter Visit Diagnoses Not on filedocumented in this encounter Care Teams Soap Tender Relationship Specialty Start Date End Date Diana Mao MD [address] [place] [address] PCP - General 08/05/17 06/14/23 documented as of this encounter
--- OUTSIDE RECORDS SUMMARY | 2024-10-15 16:32 | XMS_ITS | Encounter Summary ---
Author Organization [facility] Address [address] [facility] [place] [address] Care Team Providers Care Parts Clerk Name Role Phone MiraYanira Kahlil MULTI CRAFT MAINTENANCE TECHNICIAN-FLAP MAKER Primary Care Provid er Reason for Visit * Reason Comments Post-Op ALLY MERCADO Encounter Details Date Type Department Care Team (Late st Contact Info) Description 07/06/2023 9:30 AM CDT Office Visit [facility] - Surgery [address] [place] [address], [address] [place] [phone] [place] [id number] [place] [phone] Postop check (Primary Dx) Social History Tobacco Use Types Packs/Day Years [...] Sign Reading Time Taken Comments Blood Pressure - - Pulse - - Temperature - - Respiratory Rate - - Oxygen Saturation - - Inhaled Oxygen Concentration - - Weight 54.4 kg (120 lb) 07/06/2023 9:34 AM CDT Height 172.7 cm (5' 8 ) 07/06/2023 9:34 AM CDT Body Mass Index 18.25 07/06/2023 9:34 AM CDT documented in this encounter Functional [...] this encounter Patient Instructions * Patient Instructions* Tish Daniel LPN - 07/06/2023 9:36 AM CDT Patient's medications and allergies were reviewed with the patient today. Patient was instructed tocontact primary care physician or ordering provider with any questions regarding medications. documented in this encounter Progress Notes * Leland Thompson MD - 07/06/2023 9:30 AM CDT Kirsty Rea is a 82 year old female who is here for a postoperative visit following Left upper extremity arterial venous graft placement, brachial artery to axillary vein. The patient is referred her PCP is Yanira Meyers APRN-SARWAT. Incision: Well-healed Thrill/Bruit: Strong Plan: It is now been 3 weeks since her access was placed. We will begin dialysis through the graft.Once this goes well for 2 or 3 sessions, she will contact the vascular [place] for tunneled dialysis catheter removal documented in this encounter Plan of Treatment Upcoming Encounters Date Type Department Care Team (Late st Contact Info) Description 12/11/2024 10:30 AM FORKLIFT WHEEL LOADER Appointment [facility] Vascular Services [address] [facility] [place] [facility], [address] [place] [address] Jarett Reinoso MD [address] [place], [place] [phone] Christine Benitez MD [address] [place] [address] Keyshawn Krueger MD [address] [place] [address] Armando Ferro, [address] [phone] documented as of this encounter Visit Diagnoses Diagnosis Postop check- Primary Follow-up examination, following unspecified surgery documented in this encounter Care Teams Parts Clerk Relationship Specialty Start Date End Date Yanira Meyers APRN-FLAP MAKER [address] [place] [phone] PCP - General Nurse Practitioner Family 06/15/23 documented as of this encounter
--- OUTSIDE RECORDS SUMMARY | 2024-10-15 16:32 | XMS_ITS | Encounter Summary ---
Author Organization [facility] Address [address] [place] [address] Care Team Providers Care Cobbler Sole Name Role Phone RuizkyrieYanira MEDICAL BILLER-DERRICK BOAT OPERATOR Primary Care Provid er Reason for Visit * Auth/Cert (Routine) Specialty Diagnoses / Procedures Referred By Abena torrez Referred To Contact Procedures INSERTION GRAFT ARTERIO-VENOUS (AV) ARM Referral ID Status Reason Start Date Expiration Date Visits Re quested Visits Authorized [id number] 1 1 Encounter Details Date Type Department Care Team (Latest Contact Info) Description 06/15/2023 10:11 AM CDT - 06/15/2023 3:30 PM CDT Hospital [facility] [address] [place] [address] [place] [address] [facility] [address] [place] [address] Surgery General Discharge Disposition: Home or Self Care Social History Tobacco Use Types Packs/Day Years Used Date Smoking Tobacco: Former Cigarettes 1 18 0 10/31/1965 - 10/31/1983 Smokeless Tobacco: Never Tobacco Cessation:Counseling Given: Not Answered Alcohol Use Standard Drinks/Week Comments Yes 0.8 [...] Sign Reading Time Taken Comments Blood Pressure 174/68 06/15/2023 2:01 PM CDT Pulse 73 06/15/2023 2:01 PM CDT Temperature 36.1 ??C (96.9 ??F) 06/15/2023 1:52 PM CD T Respiratory Rate 18 06/15/2023 2:01 PM CDT Oxygen Saturation 95% 06/15/2023 2:01 PM CDT Inhaled Oxygen Concentration - - Weight 55.2 kg (121 lb 9.6 oz) 06/15/2023 10:49 AM CDT Height 172.7 cm (5' 8 ) 06/15/2023 10:49 AM CDT Body Mass Index 18.49 06/15/2023 10:49 AM CDT documented in this encounter Functional [...] capsule by mouth once daily 03/29/2023 10/05/2023 HYDROcodone-acetamin ophen (Sabine) 5-325 MG tabletIndications:ES RD (end stage renal disease) (HCC) Take 1 (one) tablet by mouth every 6 hours as needed for Pain 12 tablet 06/15/2023 08/03/2023 lisinopril (Prinivil; Zestril) 20 MG tablet Take 1 (one) tablet by mouth 2 times daily 12/24/2022 10/05/2023 documented as of this encounter Progress Notes * Vinnie Mares RN - 06/15/2023 11:37 AM CDT Pt now appears to be resting comfortable with eyes closed. Skin is returning to normal color and skin is drying up. Daughter at bedside. * Vinnie Mares RN - 06/15/2023 11:36 AM CDT Immed following nerve block pt became flush diaphoretic and dryheaving. B /P remains elevated. Dr Maurice at bedside and gave 10mg of Hydralazine. * Aimee Alvarez RN - 06/14/2023 4:58 PM CDT Spoke to Shayy at [facility]. Pt to be transported by daughter and 10 arrival. NH aware ofwhat meds pt can and cannot have preop and that pt is to be otherwise NPO. documented in this encounter H&P Notes * Leland Thompson MD - 06/15/2023 11:16 AM CDT Patient examined, H&P reviewed and remains current and/or changes noted Leland Thompson MD 06/15/2023 11:16 AM * Leland Thompson MD - 06/14/2023 7:16 AM CDT Surgical H&P Chief Complaint End-stage renal disease with need for long-term dialysis access ?? History and Physical: Yolande Rea is a 82 year old female. The patient is referred by her clinic administrator for a catheter that was not working well. She has never had evaluation for access in the past. PCP is Diana Mao MD. She is right handed. She has poor peripheral veins there difficult to get IVs. ?? Past Medical & Surgical History Past Medical History: Diagnosis Date ??? CKD (chronic kidney disease) stage 3, GFR 30-59 ml/min (CMS/HCC) ? proteinuria; Perch Mender = Dr. Reyes ??? HTN (hypertension), benign ? Hyperparathyroid bone disease (CMS/HCC) ? s/p surgery ??? Morphea ? Osteopenia [...] artery to axillary vein under regional block I have discussed the risks in detail (including bleeding, infection, and injury to surrounding structures) as well as the benefits and alternatives to surgery, with the patient who understands and wishes to proceed with surgery. documented in this encounter OR Notes * Operative - Leland Thompson MD - 06/15/2023 3:30 PM CDT [facility] REPORT PATIENT: : YOLANDE REA MR#: [id number] ADMIT DATE: 06/15/2023 CSN: [id number] DATE OF SURGERY: 06/15/2023 : 1940 PHYSICIAN: Leland Thompson MD ROOM: [facility] PREOPERATIVE DIAGNOSIS: End-stage renal disease. POSTOPERATIVE DIAGNOSIS: End-stage renal disease. PROCEDURE PERFORMED: Left upper extremity arterial venous graft placement, brachial artery to axillary vein. SURGEON: Leland Thompson M.D., FACS. FIRE PROTECTION EQUIPMENT TECHNICIAN: TWAN. ESTIMATED BLOOD LOSS: 50 cc. COMPLICATIONS: None. DRAINS: None. ANESTHESIA: Regional augmented with 2% xylocaine with epinephrine. INDICATIONS FOR PROCEDURE: The patient brought to the operating room for long- term hemodialysis access. The risks, benefits, and alternatives of surgery were explained. The patient understood and wished to proceed. PROCEDURE: The patient's arm was prepped and draped sterilely. The block was found to be somewhat unsatisfactory and was augmented with local anesthesia. A longitudinal incision was made up the antecubital space and the brachial artery was controlled proximally and distally with vessel loops. Next, the axillary vein was identified through a longitudinal incision in the upper arm. A 4 mm to 7 mm stretch [place]-Bruce graft was then tunneled using the Agnes-Wick tunneler and then, the patient was systemically heparinized. The 4 mm section of PTFE was cut appropriately and then, the brachial artery was gently occluded with vessel loops. A longitudinal arteriotomy was made and an end-to- side anastomosis was created with 6-0 Prolene, headlight illumination, and loupe magnification. Flow was re-established with an excellent return of radial pulse. The graft was occluded with a vascular clamp. The vein was then controlled proximally and distally. A longitudinal venotomy was made and an end-to-side anastomosis was carried out with 6-0 Prolene, headlight illumination, and loupe magnification. Flow was re-established with return of an excellent thrill in the outflow vein. Surgicel and topical thrombin were used for hemostasis. Once this was meticulously achieved, the wounds were irrigated and closed in layers of 3-0 Vicryl and 4-0 nylon. Dressings were applied. The patient tolerated the procedure well and left the operating room in stable and satisfactory condition. Leland Thompson MD JSG/MODL #: [id number] * Brief Op Note - Leland Thompson MD - 06/15/2023 12:27 PM CDT Brief Post Operative Note Preoperative Diagnosis: ESRD Postoperative Diagnosis: ESRD Procedure: Left upper arm av graft Surgeon: Leland Thompson MD Professor Of Special Education: TWAN Type of anesthesia: Regional Complications: none EBL: 50 cc Drains: none documented in this encounter Plan of Treatment Upcoming Encounters Date Type Department Care Team (Late st Contact Info) Description 12/11/2024 10:30 AM SALES ACCOUNT COORDINATOR Appointment [facility] Vascular Services [address] [place] [address], [place] [phone] Jarett Reinoso MD [address] [place], [place] [phone] Christine Benitez MD [address] [place] [address] Keyshwan Krueger MD [address] [place], [place] [address] [place] [address] [address] documented as of this encounter Procedures Procedure Name Priority Date/Time Associated Diagnosis Comments IA INSERT CANNULA,ART-GEORGINA,EXT JARED 06/15/2023 12:00 PM CDT End-stage renal disease with need for long-term dialysis access BASIC METABOLIC PANEL (CALCIUM TOTAL) STAT 06/15/2023 10:46 AM CDT Preop examination documented in this encounter Results * (ABNORMAL) BASIC METABOLIC PANEL (CALCIUM TOTAL) (06/15/2023 10:46 AM CDT) Glucose 105 70 - 105 mg/dL 06/15/2023 11:10 AM CDT [facility] Sodium 136 136 - 145 mmol/L 06/15/2023 11:10 AM CDT [facility] Potassium 3.7 3.5 - 5.1 mmol/L 06/15/2023 11:10 AM CDT [facility] Chloride 97(L) 98 - 107 mmol/L 06/15/2023 11:10 AM CDT [facility] CO2 27 22 - 29 mmol/L 06/15/2023 11:10 AM CDT [facility] Calcium 10.6(H) 8.4 - 10.4 mg/dL 06/15/2023 11:10 AM CDT [facility] Anion Gap 12 6 - 16 mmol/L 06/15/2023 11:10 AM CDT [facility] BUN 28(H) 7 - 26 mg/dL 06/15/2023 11:10 AM CDT [facility] Creatinine 3.99(H) 0.57 - 1.11 mg/dL 06/15/2023 11:10 AM CDT [facility] eGFR by CKD-EPI 11(L) >=90 mL/min/1.7 3 m2 06/15/2023 11:10 AM CDT [facility] Blood BLOOD SPECIMEN / Unknown Venipuncture / Unknown 06/15/2023 10:46 AM CDT 06/15/2023 10:55 AM CDT Zohra Peng DO LAB - CHEMISTRY PATRICIA CASIANO [facility] [address] [place] [address] documented in this encounter Visit Diagnoses Diagnosis ESRD (end stage renal disease) (HCC)- Primary End stage renal disease Preop examination Preoperative examination, unspecified documented in this encounter [...] $ New Bag/Syringe 06/15/2023 11:18 AM CDT 0.9% NaCl injection 1-10 mL 1-10 mL, Intracatheter, PRN, Other, peripheral line flush, Starting on Tue06/15/23 at 1024, Until Tue06/15/23 at 1630, Flush peripheral IV catheter with 1-10 mL of normal saline before and after medications and prn to clear blood from the line or to verify patency., Pre-op 0.9% NaCl injection 3 mL 3 mL, Intracatheter, EVERY 8 HOURS, First dose on Tue06/15/23 at 1400, Until Discontinued, Flush peripheral IV catheter with 3 mL of normal saline every 8 hours., Pre-op 0.9% nacl irrigation solution CONTINUOUS PRN, Starting on Tue06/15/23 at 1324, Until Tue06/15/23 at 1630, Intra-op $ New Bag/Syringe 06/15/2023 1:24 PM CDT 1,000 mL Operative Site ceFAZolin (Ancef) 2 g in 0.9% NaCl IV 50 mL IVPB 2 g, at 100 mL/hr, Intravenous, PRE-OP MULTIPLE, Starting on Tue06/15/23 at 1116, Until Tue06/15/23 at 1630, Administer 30 minutes prior to surgical incision., Indication for anti-infective therapy: Surgical prophylaxis, Pre-op heparinized saline 2 units/mL infusion CONTINUOUS PRN, Starting on Tue06/15/23 at 1227, Until Tue06/15/23 at 1630, Intra-op $ New Bag/Syringe 06/15/2023 12:27 PM CDT 1,000 mL Operative Site lidocaine 2% - EPINEPHrine 1:100,000 injection PRN, Starting on Tue06/15/23 at 1226, Until Tue06/15/23 at 1630, Intra-op $ Given 06/15/2023 12:26 PM CDT 9 mL Operative Site Oxidized Cellulose PADS PRN, Starting on Tue06/15/23 at 1227, Until Tue06/15/23 at 1630, Intra-op $ Given 06/15/2023 12:27 PM CDT 1 Each Operative Site thrombin (Thrombogen; Thrombostat) kit PRN, Starting on Tue06/15/23 at 1227, Until Tue06/15/23 at 1630, Intra-op $ Given 06/15/2023 12:27 PM CDT 5,000 Units Operative Site documented in this encounter Active and Recently Administered Medications Times are shown in CDT. Scheduled Medication Order 06/13/2023 06/14/2023 06/15/2023 0.9% NaCl injection 3 mL(Linked Group 1) 3 mL, Intracatheter, EVERY 8 HOURS, First dose on Tue06/15/23 at 1400, Until Discontinued, Flush peripheral IV catheter with 3 mL of normal saline every 8 hours., Pre-op 1400 (Due) acetaminophen (Tylenol) tablet 1,000 mg 1,000 mg, Oral, PRE-OP ONCE, 1 dose, On Tue06/15/23 at 1030, For patients >50 Kg. Not for bariatric or cardiac patients. Patient preference for lesser PRN pain meds may be honored when the patient requests a less strong medication, a lower dose, or a less intrusive route of administration when the lesser drug, dose and route have been ordered for the patient. This patient request must be documented in the MAR., Pre-op 1030 (Due) ceFAZolin (Ancef) 2 g in 0.9% NaCl IV 50 mL IVPB 2 g, at 100 mL/hr, Intravenous, PRE-OP MULTIPLE, Starting on Tue06/15/23 at 1116, Until Tue06/15/23 at 1630, Administer 30 minutes prior to surgical incision., Indication for anti-infective therapy: Surgical prophylaxis, Pre-op lidocaine PF (Xylocaine MPF) 1 % injection 0.5 mL 0.5 mL, Infiltration, PRE-OP ONCE, 1 dose, On Tue06/15/23 at 1030, May be used (0.5 ml locally to anesthetize prior to insertion). For patients not allergic to local anesthetics., Pre-op 1030 (Due) Continuous Medication Order 06/13/2023 06/14/2023 06/15/2023 0.9% NaCl infusion at 20 mL/hr, Intravenous, PRE-OP CONTINUOUS, Starting on Tue06/15/23 at 1030, Until Tue06/15/23 at 1630, For Dialysis or Chronic Renal Failure patients. Use 500 ml bag and micro drip tubing, Pre-op 1118 ($ New Bag/Syri nge - Provider: Josie Sylvester APRN-TRACER BULLET CHARGING MACHINE OPERATOR)1357 (Stopped - Provider: Vinnie Mares RN) PRN Medication Order 06/13/2023 06/14/2023 06/15/2023 0.9% NaCl injection 1-10 mL(Linked Group 1) 1-10 mL, Intracatheter, PRN, Other, peripheral line flush, Starting on Tue06/15/23 at 1024, Until Tue06/15/23 at 1630, Flush peripheral IV catheter with 1-10 mL of normal saline before and after medications and prn to clear blood from the line or to verify patency., Pre-op 0.9% nacl irrigation solution CONTINUOUS PRN, Starting on Tue06/15/23 at 1324, Until Tue06/15/23 at 1630, Intra-op 1324 ($ New Bag/Syri nge - Provider: Leland Thompson MD - Comment: to back table for prn use) heparinized saline 2 units/mL infusion CONTINUOUS PRN, Starting on Tue06/15/23 at 1227, Until Tue06/15/23 at 1630, Intra-op 1227 ($ New Bag/Syri nge - Provider: Leland Thompson MD - Comment: to back table for prn use) lidocaine 2% - EPINEPHrine 1:100,000 injection PRN, Starting on Tue06/15/23 at 1226, Until Tue06/15/23 at 1630, Intra-op 1226 ($ Given - Prov ider: Leland Thompson MD) Oxidized Cellulose PADS PRN, Starting on Tue06/15/23 at 1227, Until Tue06/15/23 at 1630, Intra-op 1227 ($ Given - Prov ider: Leland Thompson MD - Comment: surgicel to back table for prn use) thrombin (Thrombogen; Thrombostat) kit PRN, Starting on Tue06/15/23 at 1227, Until Tue06/15/23 at 1630, Intra-op 1227 ($ Given - Prov ider: Leland Thompson MD - Comment: to back table for prn use) Linked Groups Order Group 1: SALINE LOCK, INSERT AND MAINTAIN (CANCELED) Routine, CONTINUOUS, Starting on Tue06/15/23 at 1030, Until Specified, Pre-op, New collection And 0.9% NaCl injection 3 mLJump to med 3 mL, Intracatheter, EVERY 8 HOURS, First dose on Tue06/15/23 at 1400, Until Discontinued, Flush peripheral IV catheter with 3 mL of normal saline every 8 hours., Pre-op And 0.9% NaCl injection 1-10 mLJump to med 1-10 mL, Intracatheter, PRN, Other, peripheral line flush, Starting on Tue06/15/23 at 1024, Until Tue06/15/23 at 1630, Flush peripheral IV catheter with 1-10 mL of normal saline before and after medications and prn to clear blood from the line or to verify patency., Pre-op documented in this encounter Care Teams Cobbler Sole Relationship Specialty Start Date End Date Yanira Meyers, MEDICAL BILLER-DERRICK BOAT OPERATOR [address] [place] [address] PCP - General Nurse Practitioner Family 06/15/23 documented as of this encounter
--- OUTSIDE RECORDS SUMMARY | 2024-10-15 16:32 | XMS_ITS | Encounter Summary ---
Author Organization [facility] Address [address] [facility] [place] [address] Care Team Providers Care Workflow Developer Name Role Phone Ephraim Meyersysthector Guillory MANAGER MAC-LOAD OUT SUPERVISOR Primary Care Provid er Reason for Visit * Auth/Cert (Routine) Specialty Diagnoses / Procedures Referred By Abena torrez Referred To Contact Procedures INSERTION GRAFT ARTERIO-VENOUS (AV) ARM Referral ID Status Reason Start Date Expiration Date Visits Re quested Visits Authorized [id number] 1 1 Encounter Details Date Type Department Care Team (Late st Contact Info) Description 06/15/2023 12:00 PM CDT - 06/15/2023 1:20 PM CDT Surgery formerly [facility] - Perioperative Surgery [address] [place] [address] [place] [address] [facility] [address] [place] [address] LEFT UPPER ARM ARTERIOVENOUS GRAFT Surgery Details Date/Time Status Location OR Service Patient Class Case Class Case Type Trauma Case? 06/15/2023 12:00 PM Posted [facility] OR 06 General Surgery Day Care Elective > 5 days Panel 1 Procedure LRB Anes Op Region Wound Class Comments LEFT UPPER ARM ARTERIOVENOUS GRAFT Left MAC w/block Arm Clean Surgeon Surgeon Role Service Panel Leland Thompson MD Primary General 1 documented in this encounter Social History Tobacco [...] Sign Reading Time Taken Comments Blood Pressure 263/118 06/15/2023 11:26 AM CDT Pulse 60 06/15/2023 10:49 AM CDT Temperature 36.2 ??C (97.1 ??F) 06/15/2023 10:49 AM C DT Respiratory Rate 18 06/15/2023 10:49 AM CDT Oxygen Saturation 95% 06/15/2023 11:26 AM CDT Inhaled Oxygen Concentration - - [...] mouth once daily 03/29/2023 10/05/2023 HYDROcodone-acetamin ophen (Roxana) 5-325 MG tabletIndications:ES RD (end stage renal [...] PM CDT Spoke to Shayy at [facility]. Pt to be transported by daughter and [...] female. The patient is referred by her cloth brushing and sueding supervisor for a catheter that was not working well. She has never had evaluation for access in the past. PCP is Diana Mao MD. She is right handed. She has poor peripheral veins there difficult to get IVs. ?? Past Medical & Surgical History Past Medical History: Diagnosis Date ??? CKD (chronic kidney disease) stage 3, GFR 30-59 ml/min (CMS/HCC) ? proteinuria; Building Construction Professor = Dr. Reyes ??? HTN (hypertension), benign [...] Thompson MD - 06/15/2023 3:30 PM CDT [facility] REPORT PATIENT: : YOLANDE REA MR#: [id number] ADMIT DATE: 06/15/2023 CSN: [id number] DATE OF SURGERY: 06/15/2023 : 1940 PHYSICIAN: Leland Thompson MD ROOM: [facility] PREOPERATIVE DIAGNOSIS: End-stage renal disease. POSTOPERATIVE DIAGNOSIS: End-stage renal disease. PROCEDURE PERFORMED: Left upper extremity arterial venous graft placement, brachial artery to axillary vein. SURGEON: Leland Thompson M.D., FACS. READING ASSISTANT: TWAN. ESTIMATED BLOOD LOSS: 50 cc. COMPLICATIONS: [...] A 4 mm to 7 mm stretch [place]-Bruce graft was then tunneled using the Agnes-Wick [...] satisfactory condition. Leland Thompson MD JSG/MODL #: [id number] * Brief Op Note - Leland Thompson MD - 06/15/2023 12:27 PM CDT Brief Post Operative Note Preoperative Diagnosis: ESRD Postoperative Diagnosis: ESRD Procedure: Left upper arm av graft Surgeon: Leland Thompson MD Scuba Diving Teacher: TWAN Type of anesthesia: Regional Complications: none EBL: 50 cc Drains: none documented in this encounter Plan of Treatment Upcoming Encounters Date Type Department Care Team (Late st Contact Info) Description 12/11/2024 10:30 AM LINOLEUM FLOOR INSTALLER Appointment [facility] [address] [facility], [facility] [address] [place] [address] Jarett Reinoso MD [address] [place], [place] [phone] Christine Benitez MD [address] [place] [address] Keyshawn Krueger MD [address] [place] [address] Armando Ferro, [address] [address] documented as of this encounter Procedures Procedure Name Priority Date/Time Associated Diagnosis Comments [place] INSERT CANNULA,ART-GEORGINA,EXT JARED 06/15/2023 12:00 PM CDT End-stage renal disease with need for long-term dialysis access BASIC METABOLIC PANEL (CALCIUM TOTAL) STAT 06/15/2023 10:46 AM CDT Preop examination documented in this encounter Results * (ABNORMAL) BASIC METABOLIC PANEL (CALCIUM TOTAL) (06/15/2023 10:46 AM CDT) Glucose 105 70 - 105 mg/dL 06/15/2023 11:10 AM CDT [facility] Sodium 136 136 - 145 mmol/L 06/15/2023 11:10 AM CDT [facility] Potassium 3.7 3.5 - 5.1 mmol/L 06/15/2023 11:10 AM CDT [facility] Chloride 97(L) 98 - 107 mmol/L 06/15/2023 11:10 AM CDT [facility] CO2 27 22 - 29 mmol/L 06/15/2023 11:10 AM CDT [facility] Calcium 10.6(H) 8.4 - 10.4 mg/dL 06/15/2023 11:10 AM CDT [facility] Anion Gap 12 6 - 16 mmol/L 06/15/2023 11:10 AM CDT [facility] BUN 28(H) 7 - 26 mg/dL 06/15/2023 11:10 AM CDT [facility] Creatinine 3.99(H) 0.57 - 1.11 mg/dL 06/15/2023 11:10 AM CDT [facility] eGFR by CKD-EPI 11(L) >=90 mL/min/1.7 3 m2 06/15/2023 11:10 AM CDT [facility] Blood BLOOD SPECIMEN / Unknown Venipuncture / Unknown 06/15/2023 10:46 AM CDT 06/15/2023 10:55 AM CDT Zohra Peng DO LAB - CHEMISTRY PATRICIA CASIANO [facility] Organization Address City/State/[facility] Co de Phone Number [facility] [address] [place] [address] documented in this encounter Visit [...] ($ New Bag/Syri nge - Provider: Josie Syvlester APRN-PHARMACOVIGILANCE SAFETY EXPERT)1357 (Stopped - Provider: Vinnie Mares RN) PRN [...] Pre-op documented in this encounter Care Teams Workflow Developer Relationship Specialty Start Date End Date Yanira Meeyrs, MANAGER MAC-LOAD OUT SUPERVISOR [address] [place] [id number] PCP - General Nurse Practitioner Family 06/15/23 documented as of this encounter
--- OUTSIDE RECORDS SUMMARY | 2024-10-15 16:32 | XMS_ITS | Encounter Summary ---
Author Organization [facility] Address [address] [place] [address] Care Team Providers Care Slusher Operator Name Role Phone Diana Mao MD Primary Care Provider [phone] Encounter Details Date Type Department Care Team (Late st Contact Info) Description 03/31/2023 2:30 PM CDT Office Visit [facility] - Surgery [address] [facility], [address] [place] [phone] [place] [address] [facility] [address] [place] [phone] ESRD (end stage renal disease) (HCC) (Primary Dx) Social History Tobacco Use Types [...] this encounter Patient Instructions * Patient Instructions* Shilo María Elena E - 03/31/2023 3:17 PM CDT Patient Name: Kirsty Rea Your procedure has been scheduled for: Date:Tuesday04/11/2023 Approximate Arrival Time: 9:30AM You will be notified by the hospital regarding your exact arrival time. Surgeon: Place: [] Freeman Hogan M.D. [x][facility]:[address] [place] [address]. Patient Registration [] Momo Potter M.D. [] [facility] [x] Leland Thompson M.D. [facility]. [] Hayley Willett M.D. [] [facility] [] Salvatore Guzman M.D First Floor [...] someone to drive you home. Name of Procedure: LEFT UPPER ARM ARTERIOVENOUS GRAFT Your follow-up appointment is: Date: Tuesday04/20/2023 Time: 10:50AM documented in this encounter Progress Notes * Leland Thompson MD - 03/31/2023 3:13 PM CDT Chief Complaint End-stage renal disease with need for long-term dialysis access History and Physical: Kirsty Rea is a 82 year old female. The patient is referred by her poultry and fish butcher for a catheter that was not working well. She has never had evaluation for access in the past. PCP is Diana Mao MD. She is right handed. She has poor peripheral veins there difficult to get IVs. Past Medical History: Diagnosis Date ??? CKD (chronic kidney disease) stage 3, GFR 30-59 ml/min ([facility]) proteinuria; Retail Business Manager = Dr. Reyes ??? HTN (hypertension), benign ??? Hyperparathyroid bone disease ([facility]) s/p surgery ??? Morphea ??? Osteopenia Past Surgical History: Procedure Laterality Date ??? Appendectomy ??? Breast Reduction ??? Cholecystectomy, Laparoscopic ??? HX FRACTURE TX ??? OOPHORECTOMY 1971 ??? Parathyroidectomy 1999 Allergies Allergen Reactions ??? Ramipril Other Other reaction(s): Other (See Comments) Kidney Damage Kidney Damage No outpatient medications have been marked as taking for the 03/31/23 encounter (Appointment) with Leland Thopmson MD. Social History Tobacco Use ??? Smoking status: [...] ??? Hypertension Father ??? Hypertension Brother Physical Examination: Constitutional: Patient appears oriented and in no distress. Neck: Neck is supple without lymphadenopathy GI: Abdomen is soft and non tender. Musculoskeletal: All four extremities are warm and well perfused. Poor peripheral veins. Positive modified Raji's test Data Reviewed Today: Good caliber brachial artery No adequate cephalic or basilic vein. Axillary vein. 4-5 mm Impression/Plan End-stage renal disease with need for long-term dialysis access. Will place left upper arm AV graftbrachial artery to axillary vein under regional block at the patient's convenience on a non dialysis day either Tuesday, Tuesday or Tuesday Medical decision making is high documented in this encounter Plan of Treatment Upcoming Encounters Date Type Department Care Team (Late st Contact Info) Description 12/11/2024 10:30 AM GIS INSTRUCTOR Appointment [facility] [address] [facility] [address] [place] [address] Jarett Reinoso MD [address] [place] [address] Christine Benitez MD [address] [place] [address] Keyshawn Krueger MD [address] [place] [address] Armando Ferro, [address] [phone] documented as of this encounter Visit Diagnoses Diagnosis ESRD (end stage renal disease) (HCC)- Primary End stage renal disease documented in this encounter Care Teams Slusher Operator Relationship Specialty [place] [address] [place] [address] PCP - General 08/05/17 06/14/23 documented as of this encounter
--- OUTSIDE RECORDS SUMMARY | 2024-10-15 16:33 | XMS_ITS | Encounter Summary ---
Author Organization [facility] Address [address] [facility] [place] [address] Care Team Providers Care Philosophy Lecturer Name Role Phone Diana Mao MD Primary Care Provider [phone] Reason for Visit * Reason Onset Date Comments Medication Management 12/29/2021 Encounter Details Date Type Department Care Team (Late st Contact Info) Description 12/29/2021 Telephone [facility] [address] [place] [address], [place] [phone] Diana Mao MD [address] [place] [address] Medication Management Social History Tobacco Use Types Packs/Day Years Used Date Smoking Tobacco: Former Cigarettes 1 18 0 10/31/1965 - 10/31/1983 Smokeless Tobacco: Never Alcohol Use Standard Drinks/Week Comments Yes 0.8 (1 standard drink = 0.6 oz p ure alcohol) PHQ-2 Answer Date Recorded PHQ2 TOTAL SCORE 1 12/28/2021 Sex and Gender Information Value Date Recorded Sex Assigned at Not on file Gender Identity Not on file Sexual Orientation Not on file documented as of this encounter Miscellaneous Notes * Telephone Encounter - Carolyn Herrera LPN - 12/29/2021 2:54 PM CST Attempted to call pt no answer left vm stating Pataday eye drops are no longer covered and she may substitute with OTC eye drops. If any question pt to call office CAD DETAILER * Telephone Encounter - Carolyn Herrera LPN - 12/29/2021 2:[address] Mao It's $11 OTC with a Good Rx coupon. If she calls the pharmacy they can tell her what her insurance does cover. I have no idea. Visine works too OTC. If you get the house brand not the name brand it is cheaper. [facility], [facility], [facility], [employer], they all have them CAD DETAILER * Telephone Encounter - Carolyn Herrera LPN - 12/29/2021 1:35 PM CST Received fax stating olopatadine (PATADAY) 0.2 % ophthalmic solution is not covered by insurance requesting alternative CAD DETAILER documented in this encounter Plan of Treatment Upcoming Encounters Date Type Department Care Team (Late st Contact Info) Description 12/11/2024 10:30 AM AUTOCAD DETAILER Appointment [facility] Services [address] [facility], [facility] [address] [place] [address] Jarett Reinoso MD [address] [place], [place] [phone] Christine Benitez MD [address] [place] [phone] Keyshawn Krueger MD [address] [place], [place] [phone] [place] [address] [phone] documented as of this encounter Visit Diagnoses Not on filedocumented in this encounter Care Teams Philosophy Lecturer Relationship Specialty Start Date End Date Diana aMo MD [address] [place] [address] PCP - General 08/05/17 06/14/23 documented as of this encounter
--- OUTSIDE RECORDS SUMMARY | 2024-10-15 16:33 | XMS_ITS | Encounter Summary ---
Author Organization [facility] Address [address] [facility] [place] [address] Care Team Providers Care Mortgage Loan Specialist Name Role Phone Diana Mao MD Primary Care Provider [phone] Reason for Visit * Reason Onset Date Comments Referral 11/27/2021 Encounter Details Date Type Department Care Team (Late st Contact Info) Description 11/27/2021 Telephone [facility] [address] [place] [address], [place] [phone] Diana Mao MD [address] [place] [address] Referral Social History Tobacco Use Types Packs/Day Years Used Date Smoking Tobacco: Former Cigarettes 1 18 0 10/31/1965 - 10/31/1983 Smokeless Tobacco: Never Alcohol Use Standard Drinks/Week Comments Yes 0.8 (1 standard drink = 0.6 oz p ure alcohol) Sex and Gender Information Value Date Recorded Sex Assigned at Not on file Gender Identity Not on file Sexual Orientation Not on file documented as of this encounter Miscellaneous Notes * Telephone Encounter - Partha Seymour - 11/27/2021 12:05 PM CST Pt states that her eyes itch so much that she would like a referral to dermatology. She can be reached at [phone]. Please advise. F INFORMATION OFFICER documented in this encounter Plan of Treatment Upcoming Encounters Date Type Department Care Team (Late st Contact Info) Description 12/11/2024 10:30 AM CHIEF INFORMATION OFFICER Appointment [facility] [address] [facility], [facility] [address] [place], [place] [phone] Jarett Reinoso MD [address] [place], [place] [phone] Christine Benitez MD [address] [place] [phone] Keyshawn Krueger MD [address] [place] [address] [place] [address] [phone] documented as of this encounter Visit Diagnoses Not on filedocumented in this encounter Care Teams Mortgage Loan Specialist Relationship Specialty Start Date End Date Diana Mao MD [address] [place] [address] PCP - General 08/05/17 06/14/23 documented as of this encounter
--- OUTSIDE RECORDS SUMMARY | 2024-10-15 16:33 | XMS_ITS | Encounter Summary ---
Author Organization [facility] Address [address] [facility] [place] [address] Care Team Providers Care Retail Gift Card Merchandising Name Role Phone Diana Mao MD Primary Care Provider [phone] Reason for Visit * Reason Comments Dry Skin extremely dry Question why are so many mole s popping up? Rash on back, hard to sle ep Itching both eyes Swelling Foot right foot Shoulder Pain right shoulder Swelling Leg right leg Encounter Details Date Type Department Care Team (Late st Contact Info) Description 12/28/2021 1:30 PM SERGER Office Visit [facility] [address] [place] [address], [facility] [place] [phone] Diana Mao MD [address] [place], [place] [address] [place] [address] Rash and other nonspecific skin eruption (Primary Dx); Itchy eyes; Essential (primary) hypertension; Influenza vaccine needed Social History Tobacco Use Types Packs/Day Years [...] Sign Reading Time Taken Comments Blood Pressure 116/72 12/28/2021 1:32 PM SERGER Pulse 86 12/28/2021 1:32 PM SERGER Temperature 36.2 ??C (97.1 ??F) 12/28/2021 1:30 PM CS T Respiratory Rate - - Oxygen Saturation 97% 12/28/2021 1:32 PM SERGER Inhaled Oxygen Concentration - - Weight 78.2 kg (172 lb 6.4 oz) 12/28/2021 1:30 P M SERGER Height 172.7 cm (5' 8 ) 12/28/2021 1:30 PM SERGER Body Mass Index 26.21 12/28/2021 1:30 PM SERGER documented in this encounter Patient Instructions * Patient Instructions* Nelly Rodriguez - 12/28/2021 1:27 PM SERGER BRING YOUR MEDICATIONS TO EVERY VISIT PLEASE For appointments, call us at [phone] and select option 1 or send a [employer] message. PLEASE ARRIVE TO YOUR APPOINTMENTS at least 20-30 minutes before your schedule visit time. NEED AN INSURANCE REFERRAL from us - contact [phone] To request refills, please contact your pharmacy who will reach out to us. If you have changes to your refill prescription, you will need to contact us directly at [phone] and select option 2 orsend your doctor a [employer] message. We request that all prescription refills be requested during regular office phone hours. If your prescription requires a prior authorization, it may take several days for us to get approval from [employer] company before we can refill your prescription. Call your pharmacy first to confirm if there are any refills on file. Please do not wait until you are completely out to prevent any interruption in your medication. Normal business hours are from 8:00 am to 4:30 pm Tuesday through Tuesday. Our fax number is [phone]. If you have been seen anyplace outside of [facility], please have your records and test results sent to us at the fax number above or bring a copy with you to the next visit. If you have a medical emergency, please call 911 or go to the nearest Emergency Room. After hours urgent calls that cannot wait until phone lines are open on the next business day are given to the Geriatric physician finance professional. Please call [phone] and identify yourself as a patient in our practice needing to speak to Geriatric Medicine. The pressing machine operator will contact the physician finance professional. You can generally expect a return call within 30 minutes. On weekends, physicians are seeing hospitalized patients and there may be a longer wait. Test and laboratory results: Our practice typically reports lab and test results through letters orMyChart, the [facility] online patient portal. Please allow 5 days from when your tests are completed to receive the results. IF GOING TO [facility] or [employer]--PLEASE TAKE LAB ORDER WITH YOU !! If you did not complete your labs at a [facility] facility or at a commercial lab ([employer], [employer]) then we may not have received the results. Please contact the lab and request that they are faxed to us([phone]). For information related to COVID-19, please visit the cdc website at www.cdc.gov. [facility]'s missed appointment policy is: - Patients with 3 consecutively missed appointments OR 3 missed appointments in a 12 month period may be asked to seek consultation outside of [facility]. - A missed appointment is defined as: ?? Arriving to a scheduled appointment too late to be seen (Patients who arrive to clinic later than their scheduled appointment time may not be seen) PLEASE ARRIVE 20-30 minutes before your schedulevisit time. ?? Not showing up for an appointment ?? An appointment cancelled less than 24 hours in advance OUR ADDRESS: [facility], [address] [place] [address] ER documented in this encounter Progress Notes * Diana Mao MD - 12/28/2021 1:47 PM CST Patient Name: Kirsty Rea Date: December 28, 2021 Weight: Wt Readings from Last 2 Encounters: 12/28/21 172 lb 6.4 oz (78.2 kg) 08/10/21 175 lb 6.4 oz (79.6 kg) Patient Vitals for the past 48 hrs: Temp Pulse BP 12/28/21 1332 -- 86 116/72 12/28/21 1330 97.1 ??F (36.2 ??C) 74 110/72 Complaint: itchy rash on L shoulder blade also c/o dry eyes (I)History of Present Illness/Interval History (Document L3=more than 1; L4/5=more than 4 elements)(Note onset, duration, location, quality, radiation, severity, timing, context, modifying factors, assoc. symptoms): Also c/o frozen shoulder. Insomnia itching keeps her up Eyes are itchy and dry Urinary incontinence Assessment: Presence of urinary incontinence Fall Assessment: No falls Has been to Dr. Mar regarding urinary incontinence. Reports frequent double voiding, which is consistent with his physical exam finding of mobile urethra (II) Current Medications: Current Outpatient Medications: ??? acetaminophen (TYLENOL) 500 MG capsule, Take 500 mg by mouth every 4 hours as needed for Fever or Pain, Disp: , Rfl: ??? hydroCHLOROthiazide (MICROZIDE) 12.5 MG capsule, Take 1 capsule by mouth once daily, Disp: 90 capsule, Rfl: 3 ??? labetalol (NORMODYNE; TRANDATE) 200 MG tablet, Take 1 tablet by mouth 2 times daily, Disp: 180 tablet, Rfl: 3 ??? Multiple Vitamins-Minerals (ICAPS AREDS 2 PO), , Disp: , Rfl: ??? NIFEdipine CR 24hr (ADALAT CC) 90 MG tablet, Take 90 mg by mouth, Disp: , Rfl: ??? olopatadine (PATADAY) 0.2 % ophthalmic solution, Instill 1 (one) drop into both eyes once daily, Disp: 2.5 mL, Rfl: 0 ??? Violet-3 Fatty Acids (FISH OIL) 1200 MG, , Disp: , Rfl: ??? oxybutynin (DITROPAN) 5 MG tablet, TAKE 1 TABLET BY MOUTH EVERY DAY, Disp: 90 tablet, Rfl: 1 ??? triamcinolone acetonide (KENALOG) 0.1 % cream, APPLY TO RASH ON BACK AND BODY TWICE A DAY NEEDED. AVOID FACE., Disp: 45 g, Rfl: 0 (III) Past Medical History: Diagnosis Date ??? CKD (chronic kidney disease) stage 3, GFR 30-59 ml/min proteinuria ??? HTN (hypertension), benign ??? Hyperparathyroid bone disease s/p surgery ??? Morphea ??? Osteopenia Past Surgical History: Procedure Laterality Date ??? Appendectomy ??? Breast Reduction ??? Cholecystectomy, Laparoscopic ??? HX FRACTURE TX ??? OOPHORECTOMY 1971 ??? Parathyroidectomy 1999 ETOH: a little Tobacco: former Social History Socioeconomic History ??? Marital status: Single Spouse name: Not on file ??? Number of children: Not on file ??? Years of education: Not on file ??? Highest education level: Not on file Occupational History ??? Not on file Tobacco Use ??? Smoking status: Former Smoker Packs/day: 1.00 Start date: 10/31/1965 Quit date: 10/31/1983 Years since quittin.1 ??? Smokeless tobacco: Never Used Vaping Use ??? Vaping Use: Never used Substance and Sexual Activity ??? Alcohol use: Yes Alcohol/week: 0.8 standard drinks ??? Drug use: No ??? Sexual activity: Not Currently Partners: Male Other Topics Concern ??? Not on file Social History Narrative ??? Not on file Social Determinants of Health Financial Resource Strain: Not on file Food Insecurity: Not on file Transportation Needs: Not on file Physical Activity: Not on file Stress: Not on file Social Connections: Not on file Intimate Partner Violence: Not on file Housing Stability: Not on file (IV) Review of Systems: General: WNL Eyes: difficulty with vision, dryness, itching ENT: WNL Cardiovascular: WNL Pulmonary: WNL Breasts: WNL Gastrointestinal: altered bowel habits Genitourinary: urgency, frequency, urinary incontinence Musculoskeletal: WNL Skin: rash, itching Neurological: memory loss Psychiatry: anxiety, memory problems Endocrinology: WNL Hematological: WNL Sleep: Disturbed by urinary c/o and by itching All other systems normal Test Results reviewed and discussed with pt: N/A (V) Physical Examination: BP 116/72 (BP SITE: LEFT ARM, BP POSITION: STANDING, BP CUFF SIZE: 11) Pulse 86 Temp 97.1 ??F (36.2??C) (Temporal) Ht 5' 8 (1.727 m) Wt 172 lb 6.4 oz (78.2 kg) SpO2 97% BMI 26.21 kg/m2 General: WDWN HEENT: pharynx clear, teeth: NAD, hearing good, EOMI, no lesions on lids, though patient there are white patches around her eyes I did not appreciate that, sclerae clear non-injected, no exudate. Neck: NAD Lungs: CTA Heart: RRR, no M Breasts: Normal Abdomen: soft, non-tender, BS normal Genitals/Rectal: not done Neurological: Alert/Oriented: x 3, tremors absent, CN II-XII intact Musculoskeletal: Gait: ambulatory, no wobble, able TGUG without hesitation, steps symmetric and Joints: Decreased ROM R shoulder, no focal weakness Extremities: no CCE 10 Gram Monofilament, Planter Surfaces: N/A Skin: a few scattered small excoriated papules over trunk, rash she c/o R shoulder 2 red, scaley nonblanching irregular macules. 2x3, 4x5. Pressure ulcers: No Psych: euthymic but underlying anxiety () Assessment and Plan: # rash Had been rx'ed kenalog topical but did not fill it. Also with her urine/bowel c/o complaints, Dr. Mar recommended FODMAP diet which she did not do. Reintroduced the diet intervention. Lactose-free, gluten-free. Yogurt. Print out FODMAP list Skin care no hot water or rough soap. If no relief, derm consult. # STM loss Referral to SERGER. ALISSON , but I think her baseline is quite high. # dry eyes Cic[place]/eye drops? Consider Sjogren's syndrome if no rlif will refer to rheum after checking labs (There is a reference in her PMH to morphea) Needs ophthalmology for familial macular degeneration # shoulder pain Has been in PT but not too satisfied. Asking for Silver Sneakers. Concerned about her insurance comfort. My concern is this spirited lady seems to have a thin support network and she is aware of the some cognitive issues. She continues to drive but only during the day. ER documented in this encounter Plan of Treatment Upcoming Encounters Date Type Department Care Team (Late st Contact Info) Description 12/11/2024 10:30 AM SERGER Appointment [facility] [address] [facility], [address] [place] [address] Jarett Reinoso MD [address] [place], [place] [phone] Christine Benitez MD [address] [place] [phone] Keyshawn Krueger MD [address] [place], [place] [phone] Armando Ferro, [address] [phone] documented as of this encounter Visit Diagnoses Diagnosis Rash and other nonspecific skin eruption- Primary Itchy eyes Other ill-defined disorder of eye Essential (primary) hypertension Unspecified essential hypertension Influenza vaccine needed Need for prophylactic vaccination and inoculation against influenza documented in this encounter Care Teams Retail Gift Card Merchandising Relationship Specialty Start Date End Date Diana Mao MD [address] [place] [address] PCP - General 08/05/17 06/14/23 documented as of this encounter
--- OUTSIDE RECORDS SUMMARY | 2024-10-15 16:33 | XMS_ITS | Encounter Summary ---
Author Organization [facility] Address [address] [facility] [place] [address] Care Team Providers Care Marketing And Communications Officer Name Role Phone Diana Mao MD Primary Care Provider [phone] Reason for Visit * Auth/Cert Specialty Diagnoses / Procedures Referred By Contac t Referred To Contact Diagnoses spontan head bleed Referral ID Status Reason Start Date Expiration Date Visits Re quested Visits Authorized [id number] 1 1 Encounter Details Date Type Department Care Team (Latest Contact Info) Description 08/15/2022 3:01 AM CDT - 09/09/2022 6:34 PM TECHNICIAN HELPER INSTRUMENT Hospital Encounter [facility] [address] [place] [address] Héctor Silva MD [address] [place] [id number] Ashvin Barber MD [address] DIV OF PULMONARY/[place] [address] Jero Orozco MD [address] [place] [address] Almaz Patel MD [address] [facility] [address] [place] [address] Lisbeth Potter MD [address] DIV [place] [address] Jessica Garcia MD [address] [place] [address] Neurology Discharge Disposition: Intermediate Facility Social History Tobacco Use Types Packs/Day [...] Sign Reading Time Taken Comments Blood Pressure 149/55 09/09/2022 5:03 PM TECHNICIAN HELPER INSTRUMENT Pulse 87 09/09/2022 4:39 PM TECHNICIAN HELPER INSTRUMENT Temperature 36.9 ??C (98.4 ??F) 09/09/2022 4:39 PM CS T Respiratory Rate 18 09/09/2022 4:39 PM TECHNICIAN HELPER INSTRUMENT Oxygen Saturation 96% 09/09/2022 4:39 PM TECHNICIAN HELPER INSTRUMENT Inhaled Oxygen Concentration 40% 08/31/2022 7 :36 PM CDT Weight 73.5 kg (162 lb) 09/06/2022 4:00 AM TECHNICIAN HELPER INSTRUMENT Height 172.7 cm (5' 7.99 ) 08/23/2022 7:40 PM CD T Body Mass Index 24.64 08/23/2022 7:40 PM CDT documented in this encounter Functional [...] as of this encounter Discharge Summaries * Jessica Garcia MD - 09/09/2022 4:05 PM CST Physician Discharge Summary Patient ID: Kirsty Rea [id number] 81 year old 1940 Admit date: 08/15/2022 Discharge date: 09/09/2022 Admitting Physician: José Garcia MD Discharge Physician: Jessica Banks MD Admission Diagnoses: Pontine hemorrhage Altered mental status Hypertensive emergency Acute hypoxic respiratory failure Aspiration pneumonia Pulmonary edema COPD exacerbation TOÑA on CKD Hyponatremia Urinary retention Normocytic anemia 2/2 CKD Discharge Diagnoses: Pontine intracranial hemorrhage Acute hypoxic respiratory failure 2/2 pulmonary edema Hypertension Hypertensive emergency TOÑA on CKD stage 5, 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 Neurosurgery and Neurology was on board, no surgical intervention was needed. ??Course was complicated by hypertensive emergency requiring ICU transfer and worsening CKD with acute hypoxic respiratory failure requiring iHD initiation. Pt is [facility] to [facility] on 09/08/2022. ??Patient has been managed during this hospitalization with the following issues: ?? # pontine ICH -??seen by neurology and neurosurgery. No surgical intervention. ?? # acute hypoxic respiratory failure - likely d/t pulmonary edema and aspiration in setting of dysphagia. S/p 5 day course of pip-tazo. On 1L NC. -??Oxygen requirement improved after starting dialysis from 15 L/min to 3 L/min - ICS q2h - albuterol, duonebs PRN ?? # HTN # s/p HTN emergency now resolved -??now stablized -??cont amlodipine, losartan, coreg, hydralazine, clonidine - IV hydralazine or labetalol PRN for SBP >180 ?? # TOÑA on CKD5, now ESRD with residual renal function # ESRD 2/2 HTN Nephrosclerosis - R IJ CVC placed 08/23,replaced by permcath on 08/25 -??iHD per nephrology, appreciate recommendations ?? # anemia -??likely of chronic disease - continue epo ?? # pharyngeal dysphagia -??likely 2/2 ICH - speech therapy On 09/09/2022, patient is alert and oriented, hemodynamically stable no acute issues, will be discharged to facility with instructions. Consults: Neurology, Neurosurgery, Nephrology Discharge Exam: Temp: [96.7 ??F (35.9 ??C)-98.6 ??F (37 ??C)] 98.1 ??F (36.7 ??C) Pulse: [84-93] 93 Resp: [16-18] 16 BP: (136-163)/(53-61) 163/61 I/O last 2 completed shifts: In: 600 [P.O.:240] Out: - ? Gen:??looks comfortable,??NAD HEENT: NCAT, EOMI, MMM RESP: Clear to auscultation CV: Nl S1 and S2 No gallops. GI: Soft and non tender. +BS, no HSM EXT: No edema. Disposition: Rehab Patient Instructions: please take the medications regularly Follow PCP, nephrology, Neurology in 1-2 weeks, We already communicated with the region manager If any emergency please come to the ED. Current Discharge Medication List START taking these medications Instructions Authorizing Provider acetaminophen 500 MG tablet Commonly known as: Tylenol Replaces: acetaminophen 500 MG capsule Take 1 (one) tablet by mouth every 4 hours as needed for Fever, Pain or Headache Maximum allowable Acetaminophen amount = 4 Grams (4000 mg) / 24 hours. Jessica Banks MD albuterol HFA 108 (90 Base) MCG/ACT inhaler Commonly known as: Proventil; Ventolin; Proair Inhale 2 (two) puffs by mouth every 6 hours as needed for Shortness of Breath or Wheezing Jessica Banks MD albuterol-ipratropium 0.5-2.5 (3) MG/3ML nebulizer solution Commonly known as: Duo-Neb Inhale 3 mL by mouth every 4 hours as needed for Shortness of Breath or Wheezing Jessica Banks MD amLODIPine 10 MG tablet Commonly known as: Norvasc Take 1 (one) tablet by mouth at bedtime Jessica Banks MD carvedilol 25 MG tablet Commonly known as: Coreg Take 1 (one) tablet by mouth 2 times daily with morning and evening meal Jessica Banks MD cloNIDine 0.2 MG/24HR patch Commonly known as: Catapres Start taking on: September 16, 2022 Apply 1 (one) patch to skin every 7 days Jessica Banks MD epoetin deyanira-EPBX 4000 UNIT/ML injection Commonly known as: Retacrit Start taking on: September 11, 2022 2 mL by Intravenous route Give in dialysis on Tuesday, & Tuesday Jessica Banks MD hydrALAZINE 100 MG tablet Commonly known as: Apresoline Take 1 (one) tablet by mouth 3 times daily Jessica Banks MD losartan 100 MG tablet Commonly known as: Cozaar Start taking on: September 10, 2022 Take 1 (one) tablet by mouth once daily Jessica Banks MD polyethylene glycol 3350 17 g packet Commonly known as: Miralax Take 17 (seventeen) g by mouth 2 times daily Jessica Banks MD senna-docusate 8.6-50 MG tablet Commonly known as: Senokot-S Take 1 (one) tablet by mouth 2 times daily Jessica Banks MD sennosides 8.6 MG tablet Commonly known as: Senokot Take 1 (one) tablet by mouth once daily as needed for Constipation Jessica Banks MD vitamin B complex w/ C 60mg & FA 0.8mg 0.8 MG Tabs tablet Start taking on: September 10, 2022 Take 1 (one) tablet by mouth once daily Jessica Banks MD CONTINUE taking these medications which have NOT CHANGED Instructions Authorizing Provider Fish Oil 1200 MG olopatadine 0.2 % ophthalmic solution Commonly known as: Pataday Quantity Dispensed: 2.5 mL Instill 1 (one) drop into both eyes once daily Diana Mao MD oxybutynin 5 MG tablet Commonly known as: Ditropan Quantity Dispensed: 90 tablet TAKE 1 TABLET BY MOUTH EVERY DAY Santiago Mar MD triamcinolone acetonide 0.1 % cream Commonly known as: Kenalog Quantity Dispensed: 45 g APPLY TO RASH ON BACK AND BODY TWICE A DAY NEEDED. AVOID FACE. Diana Mao MD STOP taking these medications acetaminophen 500 MG capsule Commonly known as: Tylenol Replaced by: acetaminophen 500 MG tablet hydroCHLOROthiazide 12.5 MG capsule Commonly known as: Microzide ICAPS AREDS 2 PO labetalol 200 MG tablet Commonly known as: Normodyne; Trandate NIFEdipine CR osmotic 24hr 90 MG tablet Commonly known as: Procardia-XL OASIS TEARS PLUS PF OP Restasis 0.05 % ophthalmic suspension Generic drug: cycloSPORINE Xiidra 5 % opthalmic solution Generic drug: lifitegrast Time spent on discharge: 35 minutes. Time was spent on preparation of discharge records, prescriptions, counseling patient, working withsocial work and nursing stuff. Signed: Jessica Banks MD 09/09/2022 4:05 PM NICIAN HELPER INSTRUMENT documented in this encounter Discharge Instructions * Discharge Instructions* Jessica Garcia MD - 09/09/2022 2:18 PM TECHNICIAN HELPER INSTRUMENT please take the medications regularly Follow PCP, nephrology, Neurology in 1-2 weeks, We already communicated with the region manager If any emergency please come to the ED. NICIAN HELPER INSTRUMENT documented in this encounter Medications at Time of Discharge Medication Sig Dispensed Refills Start Date End Date acetaminophen (Tylenol) 500 MG tablet Take 1 (one) tablet by mouth every 4 hours as needed for Fever, Pain or Headache Maximum allowable Acetaminophen amount = 4 Grams (4000 mg) / 24 hours. 09/09/2022 epoetin deyanira-EPBX (Retacrit) 4000 UNIT/ML injection 2 mL by Intravenous route Give in dialysis on Tuesday, & Tuesday09/11/2022 albuterol HFA (Proventil; Ventolin; Proair) 108 (90 Base) MCG/ACT inhaler Inhale 2 (two) puffs by mouth every 6 hours as needed for Shortness of Breath or Wheezing 09/09/2022 04/12/2023 albuterol-ipratropium (Duo-Neb) 0.5-2.5 (3) MG/3ML nebulizer solution Inhale 3 mL by mouth every 4 hours as needed for Shortness of Breath or Wheezing 09/09/2022 03/23/2023 amLODIPine (Norvasc) 10 MG tablet Take 1 (one) tablet by mouth at bedtime 09/09/2022 03/23/2023 carvedilol (Coreg) 25 MG tablet Take 1 (one) tablet by mouth 2 times daily with morning and evening meal 09/09/2022 03/23/2023 cloNIDine (Catapres) 0.2 MG/24HR patch Apply 1 (one) patch to skin every 7 days 09/16/2022 04/07/2023 hydrALAZINE (Apresoline) 100 MG tablet Take 1 (one) tablet by mouth 3 times daily 09/09/2022 04/07/2023 losartan (Cozaar) 100 MG tablet Take 1 (one) tablet by mouth once daily 09/10/2022 04/07/2023 olopatadine (PATADAY) 0.2 % ophthalmic solutionIndications:I tchy eyes Instill 1 (one) drop into both eyes once daily 2.5 mL 12/28/2021 04/07/2023 [place]-3 Fatty Acids (FISH OIL) 1200 MG oxybutynin (DITROPAN) 5 MG tablet TAKE 1 TABLET BY MOUTH EVERY DAY 90 tablet 1 12/25/2021 04/07/2023 polyethylene glycol 3350 (Miralax) 17 g packet Take 17 (seventeen) g by mouth 2 times daily 09/09/2022 senna (Senokot) 8.6 MG tablet Take 1 (one) tablet by mouth once daily as needed for Constipation 09/09/2022 04/07/2023 senna-docusate (Senokot-S) 8.6-50 MG tablet Take 1 (one) tablet by mouth 2 times daily 09/09/2022 04/07/2023 triamcinolone acetonide (KENALOG) 0.1 % creamIndications:Rash and other nonspecific skin eruption APPLY TO RASH ON BACK AND BODY TWICE A DAY NEEDED. AVOID FACE. 45 g 12/28/2021 03/23/2023 vitamin B complex w/ C 60mg & FA 0.8mg (Nephro-Donna) 0.8 MG TABS tablet Take 1 (one) tablet by mouth once daily 09/10/2022 04/07/2023 documented as of this encounter Progress Notes * Fran Torres MSW - 09/09/2022 3:23 PM CST Facility Transfer Note Level of Care: Actual level of care at discharge: Fpc - Skilled Facility Facility Name: (include name of person confirming admission): Actual discharge provider: [facility] [place] Made Aware of Special Needs (if applicable): Yes RN Call Report to:[phone] Fax D/C Orders to:[phone] Transportation (company and number): [employer] [phone] Certificate of Medical Necessity rationale: Yes Date/time of transfer: 09/09/2022 @ 4:30PM Accepting and contact #: Dr. Perez Room 504 Completed and Signed [id number] (if applicable): Family/Other Notified of Transfer (name/phone): Daughter notified [phone] Authorization Skilled Care: Authorization for Transportation: Verified Qualifying Stay(Skilled Only): YES Comments: Name/Phone number: NIMO Tang [phone] NICIAN HELPER INSTRUMENT * Yajaira Hope PT - 09/09/2022 2:01 PM CST [facility] Department of Physical Medicine & Rehabilitation Progress Note Patient: Kirsty Rea [facility] Record Number: [id number] Date of : 1940 Age: [age] year old 09/09/22 1400 Missed Visit Missed Visit Procedure Off Floor NICIAN HELPER INSTRUMENT * Loly Aleman MD - 09/09/2022 1:00 PM CST Nephrology Progress Note 09/09/2022 1:00 PM Patient Name: Kirsty Rea (81 year old) Room Number: 7705/1 Attending: Jessica Garcia MD Hospital Day: 25 81 F h/o HTN, CKD stage 5 presented from healthcare facility with 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 Her hosp stay c/b acute hypoxic respiratory failure and acute renal failure which required initiation of intermittent hemodialysis.Initially she was on 15 L/min and now on 5 L/min.Also suspicion of Aspn PNA. Subjective: Interval history: - NAEON - pt was seen and examined in HDU - she is lying comfortable - denies CP, N/V, abd pain, fever, chills. - afebrile, vitals are acceptable, on RA Objective: Patient Vitals for the past 6 hrs: Temp Pulse Resp BP BP Method 09/09/22 1223 -- 83 18 108/44 -- 09/09/22 1200 -- 86 18 93/56 -- 09/09/22 1145 -- 85 18 119/57 -- 09/09/22 1130 -- 79 18 145/61 -- 09/09/22 1049 97.4 ??F (36.3 ??C) 87 18 170/65 -- 09/09/22 0830 98.4 ??F (36.9 ??C) 97 -- (!) 187/63 Automatic Intake/Output Summary (Last 24 hours) at 09/09/2022 1300 Last data filed at 09/09/2022 1019 Gross per 24 hour Intake 100 ml Output -- Net 100 ml Physical Exam General: comfortable HENT: NC/AT Eyes: Anicteric. Non-injected. Chest: Reduced breath sounds RLL. Permcath at right chest. Cardiovascular: RRR. No murmurs, rubs, or gallops Abdomen: Soft. NT/ND. Normal BS+. Extremities: No signs of clubbing, cyanosis, or edema. Skin: Warm. Dry. Neurological: AOx3, Moves all extremities spontaneously Psych: Appropriate mood and affect Medications SCHEDULED MEDICATIONS: And 0.9% NaCl injection 3 mL, Intracatheter, q8h amLODIPine (Norvasc) tablet 10 mg, Oral, AT BEDTIME carvedilol (Coreg) tablet 25 mg, Oral, BID WC cloNIDine (Catapres) patch 0.2 mg, Transdermal, q7 days cloNIDine patch placement confirmation, Transdermal, BID epoetin deyanira-EPBX (Retacrit) injection 8,000 Units, Intravenous, DIALYSIS TUE, MARLIN, & SAT heparin injection 5,000 Units, Subcutaneous, TID hydrALAZINE (Apresoline) tablet 100 mg, Oral, TID losartan (Cozaar) tablet 100 mg, Oral, QDAY polyethylene glycol 3350 (Miralax) packet 17 g, Oral, BID senna-docusate (Senokot-S) tablet 1 tablet, Oral, BID vitamin B complex w/ C 60mg & FA 0.8mg (Nephro-Donna) tablet 1 tablet, Oral, QDAY ?? [COMPLETED] potassium chloride ER (Klor-Con M) tablet 20 mEq, Oral, Once ?? CONTINUOUS MEDICATIONS: PRN MEDICATIONS: 0.9% NaCl injection 1-10 mL, Intracatheter, PRN acetaminophen (Tylenol) tablet 500 mg, Oral, q4h PRN albuterol HFA (Proventil; Ventolin; Proair) 108 (90 Base) MCG/ACT inhaler 2 puff, Inhalation, q6h PRN albuterol-ipratropium (Duo-Neb) nebulizer solution 3 mL, Inhalation, q4h PRN glycerin (adult) suppository 1 suppository, Rectal, QDAY PRN hydrALAZINE (Apresoline) injection 15 mg, Intravenous, q4h PRN labetalol (Normodyne; Trandate) injection 20 mg, Intravenous, q2h PRN ?? senna (Senokot) tablet 8.6 mg, Oral, QDAY PRN Data Review Recent Labs Component Name 09/08/22 0148 09/06/22 0701 09/03/22 0649 WBC 7.2 7.9 8.5 HGB 8.6* 8.2* 7.8* HCT 26.1* 24.6* 24.0* PLTCOUNT 268 223 214 Recent Labs Component Name 09/08/22 0148 08/15/22 0339 03/09/22 1312 SODIUM - - 140 POTASSIUM 3.4* - 3.9 CHLORIDE - - 109 CO2 - BUN 39* - 65* CREATININE 2.69* - 2.74* CALCIUM 9.2 - 8.7 ALBUMIN - - 3.6 ALT - - 12 AST - - 14 GLUCOSE 104 - 99 - = values in this interval not displayed. Recent Labs Component Name 08/27/22 0439 08/26/22 0330 08/25/22 0338 INR 0.9 1.0 0.9 Microbiology: Reviewed in Epic Imaging: [facility]ed in [facility] Assessment and Plan: 81 F h/o HTN, CKD stage 5 presented from healthcare facility with 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 The renal parenchymal echogenicity is normal. There is a 1.5 x 1.1 x 1 cm simple cyst within the upper pole of the right kidney. There is no evidence of a solid renal mass, renal calculi, or hydronephrosis. - Sees nephrology (Dr. Reyes) as outpatient; recent biopsy due t nephrotic range proteinuria thatnoted hypertensive nephrosclerosis - R IJ CVC placed 08/23,replaced by permcath on 08/25 - Pt was since then dialyzed regularly with ~ 8 L UF, Oxygen requirement improved from 15 L/min to 3 L/min - No new labs today - Renal function: cre 2.69 BUN 39 yesterday - Electrolytes acceptable yesterday - acid base CO2 23 yesterday - HD today with 3.5 hrs/ 2.5 L UF 3K bath - planning to discharge today to SNF. Her HD schedule at the clinic is MWF. suggest next dialysis tomorrow in clinic - renally dose medications - please start nephrocaps daily #Hypertension - BP 163/61 mmHg - continue Hydral 100 tid, - continue clonidine 0.2 mg patch qweek - continue Coreg 12.5 mg bid, - continue amlod 10mg, - continue losartan 100 mg, ?? #Normocytic Anemia - last Hb 8.6 - Iron studies ordered this hospitalization: - Iron 77 - TSat 31% - TIBC 248 - Ferritin 180 - c/w Retacrit 8000U TTS with hemodialysis # BMD CKD - last Ca 9.2 alb 2.6 corrected Ca 10.3 - Phos 3.5 DC planning: Pt follows Dr. Reyes in [place], family wants pt to be in [facility]. ?? Patient was seen and discussed with attending physician, Dr. Philomena Aleman MD Nephrology Fellow #[phone] 09/09/2022 1:00 PM NICIAN HELPER INSTRUMENT Associated attestation - Srini Quach MD - 09/09/2022 2:22 PM TECHNICIAN HELPER INSTRUMENT Nephrology Attending Physician I have seen and examined the patient with house-staff on round. I agree with the house-staff note. Please also see my dialysis note from today. Srini Quach MD Division of Nephrology * Michelle Adkins RN - 09/09/2022 12:03 PM CST Case Management Progress Note Anticipated level of care at discharge: Home, Acute Rehab Facility, Fpc - Skilled Facility Discharge Plan: DC to SNF Basic Needs Assessment (BNA) Score: 6 Anticipated Discharge Date: Anticipated Discharge Date: (TBD) Patient/Family provided with list of resources? Unknown Preferred Provider / High Quality Network List given?: Unknown Reason for provider choice: Pt. choice - Pt. choice Transportation at Discharge: Follow Up Appointment: Transportation to MD: Equipment at Home: Equipment at Home: Cane-Straight List DME patient requires but does not have: DME Provider: [facility] Screening: Medication affordability concerns: No Auth Number (if required) [place]: DME: Medications: Transportation: Name: Michelle Adkins RN Phone: [phone] NICIAN HELPER INSTRUMENT * Chrissie Johns - 09/09/2022 11:52 AM CST Images from the original note were not included. Kidney Navigator Note Update Following for outpatient dialysis needs. Plan for pt to discharge to SNF today. HD clinic can start pt 09/10/22 for treatments. Left voice message for daughter for call back. Will continue to follow. hCrissie Johns Dialysis Navigator [facility] P: [phone] [facility]: [phone] UPDATE:(3:41pm) Pt's daughter's (Neftaly) have been informed of discharge today to SNF andstart of 09/10 at HD clinic. Details of HD schedule given to Agnes who will be the home day care provider to pt. Clinic has requested to have Agnes present at first day of treatment for paper work and to bring insurance card. Agnes is agreeable. NICIAN HELPER INSTRUMENT * Kerrie Thomson RN - 09/09/2022 11:49 AM CST Problem: Fall Risk Goal: Fall risk and fall related injury risk are minimized (interventions related to the fall risk can be found in the flowsheet documentation) 09/09/2022 1148 by Kerrie Thomson RN Outcome: Progressing 09/09/2022 1148 by Kerrie Thomson RN Outcome: Progressing Problem: Neurological Deficit Goal: Neurological status is stable or improving 09/09/2022 1148 by Kerrie Thomson RN Outcome: Progressing 09/09/2022 1148 by Kerrie Thomson RN Outcome: Progressing Problem: Hemodynamic Status/Cardiac Output Goal: Patient has stable vital signs and fluid balance Outcome: Progressing Problem: Oxygenation/Respiratory Function Goal: Respiratory rate/effort will be within specified limits 09/09/2022 1148 by Kerrie Thomson RN Outcome: Progressing 09/09/2022 1148 by Kerrie Thomson RN Outcome: Progressing Problem: Mobility Goal: Patient's mobility/activity will be maintained as optimum level for age, diagnosis and physical limitations 09/09/2022 1148 by Kerrie Thomson RN Outcome: Progressing 09/09/2022 1148 by Kerrie Thomson RN Outcome: Progressing Goal: Continuum of care needs are further met through referral to outpatient services when appropriate. 09/09/2022 1148 by Kerrie Thomson RN Outcome: Progressing 09/09/2022 1148 by Kerrie Thomson RN Outcome: Progressing Goal: Patient reports the ability to perform Activities of Daily Living. 09/09/2022 1148 by Kerrie Thomson RN Outcome: Progressing 09/09/2022 1148 by Kerrie Thomson RN Outcome: Progressing Problem: Communication Impairment/Dysarthria Goal: Ability to express needs and understand communication 09/09/2022 1148 by Kerrie Thomson RN Outcome: Progressing 09/09/2022 1148 by Kerrie Thomson RN Outcome: Progressing Problem: Nutrition Goal: Nutritional status is improving 09/09/2022 1148 by Kerrie Thomson RN Outcome: Progressing 09/09/2022 1148 by Kerrie Thosmon RN Outcome: Progressing Problem: Aspiration Precautions Goal: Patient's risk of aspiration is minimized 09/09/2022 1148 by Kerrie Thomson RN Outcome: Progressing 09/09/2022 1148 by Kerrie Thomson RN Outcome: Progressing Problem: Glycemic Control Goal: Clinical indication of glycemia balance is achieved 09/09/2022 1148 by Kerrie Thomson RN Outcome: Progressing 09/09/2022 1148 by Kerrie Thomson RN Outcome: Progressing Problem: Knowledge Deficit,Education,Discharge Plan Goal: The patient/family will understand cerebrovascular disease and its symptoms, treatment and management 09/09/2022 1148 by Kerrie Thomson RN Outcome: Progressing 09/09/2022 1148 by Kerrie Thomson RN Outcome: Progressing Problem: Swallowing Goal: LTG - Patient will demonstrate safe swallowing Intervention/techniques 09/09/2022 1148 by Kerrie Thomson RN Outcome: Progressing 09/09/2022 1148 by Kerrie Thomson RN Outcome: Progressing Goal: LTG - Patient will tolerate the least restrictive diet consistency to allow for safe consumption of daily meals 09/09/2022 1148 by Kerrie Thomson RN Outcome: Progressing 09/09/2022 1148 by Kerrie Thomson RN Outcome: Progressing Goal: STG - Patient will complete swallowing exercises 09/09/2022 1148 by Kerrie Thomson RN Outcome: Progressing 09/09/2022 1148 by Kerrie Thomson RN Outcome: Progressing Goal: STG - Patient will participate in instrumental assessment of swallowing as appropriate 09/09/2022 1148 by Kerrie Thomson RN Outcome: Progressing 09/09/2022 1148 by Kerrie Thomson RN Outcome: Progressing Problem: Pain/Discomfort Goal: Patient exhibits reduced pain/discomfort as evidenced by pain scores 09/09/2022 1148 by Kerrie Thomson RN Outcome: Progressing 09/09/2022 1148 by Kerrie Thomson RN Outcome: Progressing Goal: Patient uses pharmacological and non-pharmacological pain management strategies. 09/09/2022 1148 by Kerrie Thomson RN Outcome: Progressing 09/09/2022 1148 by Kerrie Thomson RN Outcome: Progressing Goal: Patient verbalizes acceptable level of pain relief and ability to engage in desired activity. 09/09/2022 1148 by Kerrie Thomson RN Outcome: Progressing 09/09/2022 1148 by Kerrie Thomson RN Outcome: Progressing NICIAN HELPER INSTRUMENT * Petar Bah RN - 09/09/2022 11:45 AM CST UF goal = 500 mL NS administered to support BP Epogen administered Right CVC dressing changed Problem: Hemodynamic Status/Cardiac Output Goal: Patient has stable vital signs and fluid balance 09/09/2022 1144 by Petar Bah RN Outcome: Progressing 09/09/2022 1144 by Petar Bah RN Outcome: Progressing Problem: Fluid and Electrolyte Imbalance Goal: Fluid and electrolyte balance are achieved/maintained Outcome: Progressing Problem: Infection Goal: Signs and symptoms of infections are decreased or avoided Outcome: Progressing NICIAN HELPER INSTRUMENT * Argenis Saunders COTA - 09/09/2022 10:47 AM CST [facility] Department of Physical Medicine & Rehabilitation Progress Note Patient: Kirsty [facility] Record Number: [id number] Date of : 1940 Age: [age] year old 09/09/22 1047 Missed Visit Patient off the floor Dialysis Will continue to follow up as schedule allows. NICIAN HELPER INSTRUMENT * Petar Bah RN - 09/09/2022 10:06 AM CST REPORT BEFORE DIALYSIS Diagnosis (TOÑA/CRF): CRF Non-Renal Diagnosis: intraparenchyma lhemorrhage Isolation:No active isolations Does patient have signs or symptoms of respiratory infection (fever, cough, shortness of breath): No Allergies: Allergies Allergen Reactions ??? Ramipril Other Other reaction(s): Other (See Comments) Kidney Damage Kidney Damage Code Status:Full Code Orientation Status: AOx3, confusion On telemetry/Rhythm: No Oxygen: No Given any medications: Yes Need for pain medications: No Blood pressure issues: No On any drips: No Is patient diabetic:No Any labs to draw: No Any other procedures today: No Any concerns about this patient: No Any medications to be given with dialysis: epo Due date of next Central Line Dressing change: 09/09/22 Primary RN educated on Incapacitated Nurse: Education to be given NICIAN HELPER INSTRUMENT * Dmitriy Mari MSW - 09/09/2022 9:50 AM CST Images from the original note were not included. [place] Transfer Report Anticipated Anticipated level of care at discharge: Home, Acute Rehab Facility, Fpc - Skilled Facility Overview:Pt received insurance authorization from [facility] 1. Call Chu ([phone]) to received the d/c information. 2. Pt will need transportation scheduled and family updated 3.Will need Packet Completed Contacts/phone:Stacy Sheppard [phone] Referrals initiated: Continued Care and Services - Admitted Since 08/15/2022 Destination Service Provider Request Status Selected Services Address Phone Fax Patient Preferred [facility] Considering Need insurance authorization [id number] FRANC CERNA, [facility] [address] [phone] -- Internal Comment last updated by Chidi Martins 08/31/2022 1008 Left VM for [facility] (Liaison) [facility] Considering N/A [address], [facility] [address] [phone] -- Internal Comment last updated by Chidi Martins 08/31/2022 1000 Spoke with Petar [phone] Facility can accept and transport Pt to [facility] Pending - Request Sent N/A [address] [address] [phone] -- Internal Comment last updated by Dmitriy Mari MSW 09/08/2022 1047 Sho reviewing [facility] ([facility] and [facility])Pending - Request Sent N/A [address] [facility] [address] -- Current Capacity last updated by Maria L Del Rosario on 06/10/2022 1047 119 Internal Comment last updated by Dmitriy Mari MSW 09/08/2022 1032 Chu, reviewing pt [facility] Pending - Request Sent N/A [address] [facility] [facility] [address] -- Internal Comment last updated by Dmitriy Mari MSW 09/08/2022 1046 Britt, reviewing pt [facility] Declined Facility cannot provide for patient's needs, Facility unable to provide dialysis services N/A [address] [facility] [address] [facility] Declined Facility cannot provide for patient's needs, Unable to provide dialysis N/A [address] [facility] [phone] -- [facility] Declined Facility cannot provide for patient's needs N/A [address] [place] [address] [phone] -- [facility] (formerly SNF) Declined Facility cannot provide for patient's [place] [address] [address] [facility] [address] [phone] -- Internal Comment last updated by Chidi Martins 08/31/2022 1442 Paul [phone] called; facility unable to accept [facility] Declined Facility full N/A [address] [place] [address] -- Internal Comment last updated by Chidi Martins 08/31/2022 1441 Rec'd call from Marisa; facility does not have bed availability Dialysis/Infusion Service Provider Request Status Selected Services Address Phone Fax Patient Preferred [facility] Pending - Request Sent N/A [address] [place] [phone] -- Name: NIMO Delatorre Phone: [phone] NICIAN HELPER INSTRUMENT * Nimco Davila RN - 09/08/2022 10:12 PM CST Problem: Fall Risk Goal: Fall risk and fall related injury risk are minimized (interventions related to the fall risk can be found in the flowsheet documentation) Outcome: Progressing Problem: Neurological Deficit Goal: Neurological status is stable or improving Outcome: Progressing Problem: Hemodynamic Status/Cardiac Output Goal: Patient has stable vital signs and fluid balance Outcome: Progressing Problem: Oxygenation/Respiratory Function Goal: Respiratory rate/effort will be within specified limits Outcome: Progressing Problem: Mobility Goal: Patient's mobility/activity will be maintained as optimum level for age, diagnosis and physical limitations Outcome: Progressing Goal: Continuum of care needs are further met through referral to outpatient services when appropriate. Outcome: Progressing Goal: Patient reports the ability to perform Activities of Daily Living. Outcome: Progressing Problem: Communication Impairment/Dysarthria Goal: Ability to express needs and understand communication Outcome: Progressing Problem: Nutrition Goal: Nutritional status is improving Outcome: Progressing Problem: Aspiration Precautions Goal: Patient's risk of aspiration is minimized Outcome: Progressing Problem: Glycemic Control Goal: Clinical indication of glycemia balance is achieved Outcome: Progressing Problem: Knowledge Deficit,Education,Discharge Plan Goal: The patient/family will understand cerebrovascular disease and its symptoms, treatment and management Outcome: Progressing Problem: Mobility Goal: STG - Patient will ambulate Outcome: Progressing Problem: Pain/Discomfort Goal: Patient exhibits reduced pain/discomfort as evidenced by pain scores Outcome: Progressing Goal: Patient uses pharmacological and non-pharmacological pain management strategies. Outcome: Progressing Goal: Patient verbalizes acceptable level of pain relief and ability to engage in desired activity. Outcome: Progressing Problem: Ineffective Airway Clearance Goal: Patent airway Outcome: Progressing Problem: Swallowing Goal: LTG - Patient will demonstrate safe swallowing Intervention/techniques Outcome: Progressing Goal: LTG - Patient will tolerate the least restrictive diet consistency to allow for safe consumption of daily meals Outcome: Progressing Goal: STG - Patient will complete swallowing exercises Outcome: Progressing Goal: STG - Patient will participate in instrumental assessment of swallowing as appropriate Outcome: Progressing Problem: Oral Intake: Inadequate oral intake Goal: Total intake will meet estimated nutrient needs Outcome: Progressing Problem: Fluid and Electrolyte Imbalance Goal: Fluid and electrolyte balance are achieved/maintained Outcome: Progressing Problem: Infection Goal: Signs and symptoms of infections are decreased or avoided Outcome: Progressing Problem: Skin Integrity Goal: Skin integrity is maintained or improved Outcome: Progressing Problem: Balance Goal: LTG - Patient will maintain balance to allow for safe mobility Outcome: Progressing NICIAN HELPER INSTRUMENT * Johny Mera, GERA - 09/08/2022 7:13 PM CST Patient arrived to the unit, via transport accompanied by family she was oriented to the unit/room no issues at this time answering questions oriented x3 NICIAN HELPER INSTRUMENT * Lisbeth Potter MD - 09/08/2022 6:23 PM CST [facility] HOSPITALIST PROGRESS NOTE Patient: Kirsty Rea Admit date: 08/15/2022 Hospital day: 24 HOSPITAL COURSE: Kirsty Rea is a 81 year old female with PMH of HTN, CKD3, morphea who presented with generalized weakness and n/v to [facility] on 08/14, 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 Course was complicated by hypertensive emergency requiring ICU transfer and worsening CKD with acute hypoxic respiratory failure requiring iHD initiation. SUBJECTIVE: - overnight, no acute events. - feeling well OBJECTIVE: Physical exam: Temp: [96.7 ??F (35.9 ??C)-98.2 ??F (36.8 ??C)] 97.7 ??F (36.5 ??C) Pulse: [87-92] 88 Resp: [16-20] 18 BP: (132-153)/(47-59) 141/55 Physical Exam Constitutional: General: She is not in acute distress. HENT: Mouth/Throat: Mouth: Mucous membranes are moist. Pharynx: No oropharyngeal exudate. Eyes: General: No scleral icterus. Conjunctiva/sclera: Conjunctivae normal. Cardiovascular: Rate and Rhythm: Normal rate and regular rhythm. Heart sounds: No murmur heard. Pulmonary: Effort: Pulmonary effort is normal. No respiratory distress. Breath sounds: Normal breath sounds. No wheezing. Abdominal: General: There is no distension. Tenderness: There is no abdominal tenderness. Musculoskeletal: General: No swelling or tenderness. Skin: General: Skin is warm and dry. Coloration: Skin is not jaundiced. Neurological: Mental Status: She is alert. 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 #pontine ICH - seen by neurology and neurosurgery. - goal BP <180 - continue PT/OT #acute hypoxic respiratory failure - likely d/t pulmonary edema and aspiration in setting of dysphagia. S/p 5 day course of pip-tazo. On 3L NC. - wean O2 - ICS q2h - albuterol, duonebs PRN #chronic HTN #s/p HTN emergency now resolved - now stablized - cont amlodipine, losartan, coreg, hydralazine, clonidine - IV hydralazine or labetalol for SBP >180 #CKD with new iHD initiation - worsening of chronic CKD - iHD per nephrology, appreciate recommendations #anemia - likely of chronic disease - trend, transfuse <7 - continue epo #pharyngeal dysphagia - likely 2/2 ICH - dysphagia diet - continue speech therapy DVT ppx: heparin tid GI ppx: n/a Lines: PIV Diet: low sodium Bowel: miralax, senna Therapy: PT/OT following Dispo: SNF Code: Full Code PCP: Diana Mao MD >40 minutes spent on the care of this patient. > 50% was spent in counseling and coordinationof care that included the patient, family and consults. Lisbeth Potter MD General Internal Medicine 09/08/2022 6:24 PM NICIAN HELPER INSTRUMENT * Loly Aleman MD - 09/08/2022 12:27 PM CST Nephrology Progress Note 09/08/2022 12:27 PM Patient Name: Kirsty Rea (81 year old) Room Number: 843/01 Attending: Lisbeth Potter MD Hospital Day: 24 81 F h/o HTN, CKD stage 5 presented from healthcare facility with 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 Her hosp stay c/b acute hypoxic respiratory failure and acute renal failure which required initiation of intermittent hemodialysis.Initially she was on 15 L/min and now on 5 L/min.Also suspicion of Aspn PNA. Subjective: Interval history: - NAEON - tolerated dialysis yesterday with 2 L UF - pt was seen and examined in her room - she is lying comfortable - denies CP, N/V, abd pain, fever, chills. - afebrile, vitals are acceptable, on 4 L O2 Objective: Patient Vitals for the past 6 hrs: Temp Pulse Resp BP BP Method 09/08/22 1225 96.7 ??F (35.9 ??C) 91 18 141/57 Automatic 09/08/22 1158 -- -- 16 -- -- 09/08/22 0728 97.8 ??F (36.6 ??C) 90 20 139/58 Automatic No intake or output data in the 24 hours ending 09/08/22 1227 Physical Exam General: comfortable HENT: NC/AT, thrush noted Eyes: Anicteric. Non-injected. Chest: Reduced breath sounds RLL. Permcath at right chest. Cardiovascular: RRR. No murmurs, rubs, or gallops Abdomen: Soft. NT/ND. Normal BS+. Extremities: No signs of clubbing, cyanosis, or edema. Skin: Warm. Dry. Neurological: AOx3, Moves all extremities spontaneously Psych: Appropriate mood and affect Medications SCHEDULED MEDICATIONS: And 0.9% NaCl injection 3 mL, Intracatheter, q8h amLODIPine (Norvasc) tablet 10 mg, Oral, AT BEDTIME carvedilol (Coreg) tablet 12.5 mg, Oral, BID WC cloNIDine (Catapres) patch 0.2 mg, Transdermal, q7 days cloNIDine patch placement confirmation, Transdermal, BID epoetin deyanira-EPBX (Retacrit) injection 8,000 Units, Intravenous, DIALYSIS TUE, MARLIN, & SAT heparin injection 5,000 Units, Subcutaneous, TID hydrALAZINE (Apresoline) tablet 100 mg, Oral, TID losartan (Cozaar) tablet 100 mg, Oral, QDAY polyethylene glycol 3350 (Miralax) packet 17 g, Oral, BID ?? senna-docusate (Senokot-S) tablet 1 tablet, Oral, BID ?? CONTINUOUS MEDICATIONS: PRN MEDICATIONS: 0.9% NaCl injection 1-10 mL, Intracatheter, PRN acetaminophen (Tylenol) tablet 500 mg, Oral, q4h PRN albuterol HFA (Proventil; Ventolin; Proair) 108 (90 Base) MCG/ACT inhaler 2 puff, Inhalation, q6h PRN albuterol-ipratropium (Duo-Neb) nebulizer solution 3 mL, Inhalation, q4h PRN glycerin (adult) suppository 1 suppository, Rectal, QDAY PRN hydrALAZINE (Apresoline) injection 15 mg, Intravenous, q4h PRN labetalol (Normodyne; Trandate) injection 20 mg, Intravenous, q2h PRN ?? senna (Senokot) tablet 8.6 mg, Oral, QDAY PRN Data Review Recent Labs Component Name 09/08/22 0148 09/06/22 0701 09/03/22 0649 WBC 7.2 7.9 8.5 HGB 8.6* 8.2* 7.8* HCT 26.1* 24.6* 24.0* PLTCOUNT [phone] Recent Labs Component Name 09/08/22 0148 08/15/22 0339 03/09/22 1312 SODIUM - - 140 POTASSIUM 3.4* - 3.9 CHLORIDE - - 109 CO2 23 - 21 BUN 39* - 65* CREATININE 2.69* - 2.74* CALCIUM 9.2 - 8.7 ALBUMIN - - 3.6 ALT - - 12 AST - - 14 GLUCOSE 104 - 99 - = values in this interval not displayed. 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 The renal parenchymal echogenicity is normal. There is a 1.5 x 1.1 x 1 cm simple cyst within the upper pole of the right kidney. There is no evidence of a solid renal mass, renal calculi, or hydronephrosis. - Sees nephrology (Dr. Reyes) as outpatient; recent biopsy due t nephrotic range proteinuria thatnoted hypertensive nephrosclerosis - R IJ CVC placed 08/23,replaced by permcath on 08/25 - Pt was since then dialyzed regularly with ~ 8 L UF, Oxygen requirement improved from 15 L/min to 3 L/min - Renal function: cre 2.69 BUN 39 - Electrolytes acceptable - acid base CO2 23 - 2x unmeasured urination - No HD today - renally dose medications - please start nephrocaps daily #Hypertension - BP 139/58 mmHg - continue Hydral 100 tid, - continue clonidine 0.2 mg patch qweek - continue Coreg 12.5 mg bid, - continue amlod 10mg, - continue losartan 100 mg, ?? #Normocytic Anemia - last Hb 8.6 - Iron studies ordered this hospitalization: - Iron 77 - TSat 31% - TIBC 248 - Ferritin 180 - c/w Retacrit 8000U TTS with hemodialysis # BMD CKD - Ca 9.2 alb 2.6 corrected Ca 10.3 - Phos 3.5 DC planning: Pt follows Dr. Reyes in [place], family wants pt to be in [facility]. ?? Patient was seen and discussed with attending physician, Dr. Philomena Aleman MD Nephrology Fellow #[phone] 09/08/2022 12:27 PM NICIAN HELPER INSTRUMENT Associated attestation - Srini Quach MD - 09/08/2022 3:59 PM TECHNICIAN HELPER INSTRUMENT Nephrology Attending Physician I have seen and examined the patient with house-staff on round. I agree with the house-staff note. Pt is stable, awaiting rehab placement, no crackles or edema. Poor oral intake with poor nutritional status, Alb 2.6, I asked her to take Nepro which was left unopened at bedside. Next HD scheduled tomorrow. Srini Quach MD Division of Nephrology * Kamaljit Dmitriy, PRIVATE INVESTIGATOR SURVEILLANCE - 09/08/2022 9:15 AM CST Images from the original note were not included. New Facility Referral Follow-Up Chu from [facility] ([phone]) is following the pt and can accept. Insuranceauthorization is submitted. SW updated family and will continue to follow. Level of Care (SNF/Medicaid NH/Rehab/Intermediate Care/LTACH): ARU vs SNF SW received call from [facility] that they received the fast appeal. Faxed over information ( ) and phone number . Reference #[id number]. Could take up to 72 hrs for decision. SW spoke with pt's daughter Stacy Sheppard [phone] and family is agreeable to sending additional SNF refs. SW sent referrals and will follow up. Referrals initiated: Continued Care and Services - Admitted Since 08/15/2022 Destination Service Provider Request Status Selected Services Address Phone Fax Patient Preferred [facility] Considering Need insurance authorization [id number] [facility] [address] [phone] -- Internal Comment last updated by Chidi Martins 08/31/2022 1008 Left VM for [facility] (Liaison) [facility] Considering N/A [address] [facility] [address] [phone] -- Internal Comment last updated by Chidi Martins 08/31/2022 1000 Spoke with Petar [phone] Facility can accept and transport Pt to [facility] Pending - Request Sent N/A [address] [address] [phone] -- [facility])Pending - Request Sent N/A [address] [facility] [address] -- Current Capacity last updated by Maria L Del Rosario on 06/10/2022 1047 [address] [facility] Pending - Request Sent N/A [address] [facility] [address] -- [facility] Declined Facility cannot provide for patient's needs, Facility unable to provide dialysis services N/A [address] [facility] [phone] [facility] Declined Facility cannot provide for patient's needs, Unable to provide dialysis N/A [address] [facility] [address] [phone] -- [facility] Declined Facility cannot provide for patient's needs N/A [address] [facility] [address] [phone] -- [facility] (formerly SNF) Declined Facility cannot provide for patient's needs N/A [address] [address] [facility] [address] [phone] -- Internal Comment last updated by Chidi Martins 08/31/2022 1442 Paul [phone] called; facility unable to accept [facility] Declined Facility full N/A [address] [place] [facility] [address] -- Internal Comment last updated by Chidi Martins 08/31/2022 1441 Rec'd call from Marisa; facility does not have bed availability Dialysis/Infusion Service Provider Request Status Selected Services Address Phone Fax Patient Preferred [facility] Pending - Request Sent N/A [address] [place] [phone] -- If Medicare-3 day qualifying stay verified: Yes monitoring facility responses Comments/changes: Name: NIMO Delatorre Phone: [phone] NICIAN HELPER INSTRUMENT * Vanessa Blakely SLP - 09/08/2022 8:58 AM CST [facility] Department of Physical Medicine & Rehabilitation Progress Note Patient: Kirsty [facility]a [facility] Record Number: [id number] Date of : 1940 Age: [age] year old 09/08/22 0858 Missed Visit Missed Visit Pt with PT at time of visit this morning. HARBORMASTER followed up with PT after her lunch trayhad been delivered but Pt declined PO trials given her reported lack of appetite and fatigue. Will plan to follow up again at a later date/time. Vanessa Barr M.S., CCC-HARBORMASTER Speech Language Pathologist [phone] NICIAN HELPER INSTRUMENT * Kaley Alarcon, PT - 09/08/2022 8:44 AM CST [facility] Physical Medicine and Rehabilitation Physical Therapy Progress Note Patient: Kirsty Rea [facility] Record Number: [id number] Date of : 1940 Age: [age] year old PPE worn by staff: gloves;mask - procedural PPE worn by patient: gown - patient, clean Discharge Recommendation: Patient will benefit from multidisciplinary inpatient therapies. SUBJECTIVE: Subjective: I am so tired. Pt requires maximal cues for participation in therapy session. Pain Assessment: Pain Rating Score #: 0 Follow-up for pain: No follow-up for pain indicated and patient agreed to proceed with treatment PRECAUTIONS: Activity Level: Other (Comment) (up as tolerated) OBJECTIVE: At start of therapy session, patient found in bed and with bed alarm on General Appearance: in bed resting in NAD. LDAs: IV's: Peripheral line, Dialysis Site and Oxygen Nasal Cannula Vitals: (*Assess the 3 levels of oxygen saturations both for room air and 02 unless rest on room air is 88% or less). Rest BP: 117/45 HR: 84 Sp02 Sp02 93% Room Air L O2 4LNC Ex/Gait/Activity Without 02 BP: HR: Sp02 Room Air Ex/Gait/Activity With 02 BP: HR: Sp02 L O2 Post Activity BP: HR: 82 Sp02 Sp02 94% L O2 Room Air 4LNC Observations: Vitals monitored throughout session while on 4LNC. Pt without any SOB, dizziness, or signs/symptoms of distress. Mental Status/Cognition: Level of Consciousness-Adult: Alert Orientation Level: Oriented X4 Cognition: Judgement-decreased;Safety awareness-decreased;Follows one step commands Attention Span: Attends with cues to redirect Memory: Decreased short term memory Following Commands: Follows one step commands with repetition/cues Safety Judgement: Decreased awareness of need for safety Awareness of Errors: Decreased awareness of deficits;Assistance required to identify errors made Problem Solving: Assistance required to generate solutions;Assistance required to identify errors made Mobility: A gait belt and non-slip socks were used for all out of bed activity this date. Bed Mobility: Rolling: Minimum Assistance to Left Supine to Sit: Minimal Assistance;Moderate Assistance with HOB in semi-fowlers position Sit to Supine: Minimal Assistance Transfers: Sit to Stand: Activity Does Not Occur Stand to Sit: Activity Does Not Occur Bed to Chair: Activity Does Not Occur Gait: Distance Ambulated: 0 FEET Comments: Pt sits up on side of bed with increased cues and assist for trunk elevation. Once upright, pt requires cues for lifting head and trunk. Pt shakes her head no that she cannot do that. When asked why, pt states I'm tired. Pt noted to attempt to lay down multiple times during session. Therapist gives education about goals of progressing strength, balance, and mobility to allow her to return to her independent state. Pt with decreased receptiveness. Declines standing and not appropriate to transfer to chair secondary to behaviors/impaired balance. Balance: Balance Scales/Tests Used: Sitting: Static/Dynamic Sitting - Static: Fair -;Poor + Sitting - Dynamic: Fair -;Poor + Standing - Static: Not tested Standing - Dynamic: Not tested Increased assistance needed from therapist to assist with maintaining sitting balance on side of bed. Pt frequently demos increased trunk lean from side to side; max cues needed to maintain midline position and lift head. Pt demos poor effort at attempting to hold self upright despite cues and education. ACTIVITY TOLERANCE: Patient's activity tolerance: poor TREATMENT/INTERVENTIONS: ROM, bed mobility training, balance activities, monitoring of vitals and cognitive stimulation When sitting EOB, pt performs: scapular squeezes x5, shoulder flexion x2, cervical extension/rotation x3, knee extension x10, APs x10, and marches 5x2 B LE. Pt requires cues for attempting exercise to improve strength and cues to continue with exercises. Pt returned to bed then rolls in bed for therapist to adjust sheets. Maximal education given about goals of progressing activity to assist with returning to independence. Modified [place]: Current Modified [place] Score: 4 EDUCATION: While performing PT, Patient was instructed in:functional mobility training, cognitive retraining, energy conservation, safety awareness/fall precautions , home exercise program, dischargeplanning Presented to patient who demonstrates Questionable understanding of instructions given. ASSESSMENT: Patient would benefit from additional Physical Therapy sessions to achieve the following functionalgoals to enhance independence. Short Term Goals: Goal Formation With patient Patient will perform bed mobility??with minimal assist Patient will transfer sit to/from stand??with minimal assist Patient will transfer bed to/from chair??with minimal assist Patient will ambulate??50??feet with minimal assist??and appropriate AD ?? Intermediate Goal(s): Patient to discharge to appropriate next level of inpatient care. INFORMED CONSENT TO TREATMENT: Plan of care is discussed but patient with questionable understanding. Equipment Issued: none Plan: Patient continues to benefit from skilled therapy services., Continue with goals as established. If patient is discharged from the facility, this note serves as a discharge summary if further physical therapy visits did not occur. Refer to filed flowsheet for further details. Following therapy session, patient left in bed, with bed alarm on , with call light within reach. NICIAN HELPER INSTRUMENT * Perla Monzon RN - 09/07/2022 10:35 PM CST Problem: Fall Risk Goal: Fall risk and fall related injury risk are minimized (interventions related to the fall risk can be found in the flowsheet documentation) Outcome: Progressing Problem: Neurological Deficit Goal: Neurological status is stable or improving Outcome: Progressing Problem: Mobility Goal: Patient's mobility/activity will be maintained as optimum level for age, diagnosis and physical limitations Outcome: Progressing Problem: Nutrition Goal: Nutritional status is improving Outcome: Progressing Problem: Pain/Discomfort Goal: Patient exhibits reduced pain/discomfort as evidenced by pain scores Outcome: Progressing NICIAN HELPER INSTRUMENT * Chrissie Johns - 09/07/2022 2:48 PM CST Images from the original note were not included. Kidney Navigator Note Update Following pt for outpatient dialysis needs. Pt's first date of treatment for outpatient HD placement has been moved up to 09/10 to allow time for [employer] review. Will continue to follow pt progress. 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 Her hosp stay c/b acute hypoxic respiratory failure and acute renal failure which required initiation of intermittent hemodialysis.Initially she was on 15 L/min and now on 5 L/min.Also suspicion of Aspn PNA. Subjective: Interval history: - NAEON - pt was seen and examined in HDU - she is lying comfortable - states she is feeling well today. - denies CP, N/V, abd pain, fever, chills. - afebrile, vitals are acceptable, on 3 L O2 Objective: Patient Vitals for the past 6 hrs: Temp Pulse Resp BP 09/07/22 1232 -- -- -- 160/57 09/07/22 1204 -- -- 16 -- 09/07/22 1121 97.8 ??F (36.6 ??C) 92 18 160/57 09/07/22 1115 -- 87 18 103/53 09/07/22 1100 -- 92 18 117/55 09/07/22 1040 -- 92 18 125/58 09/07/22 1020 -- 90 18 121/58 09/07/22 1000 -- 90 18 128/74 09/07/22 0940 -- 89 18 122/63 09/07/22 0920 -- 92 18 121/58 09/07/22 0900 -- 90 18 125/63 09/07/22 0840 -- 91 18 130/57 09/07/22 0820 -- 88 18 133/57 09/07/22 0800 -- 88 18 130/55 09/07/22 0745 -- 83 18 156/63 09/07/22 0737 97.7 ??F (36.5 ??C) 84 18 157/60 Intake/Output Summary (Last 24 hours) at 09/07/2022 1311 Last data filed at 09/07/2022 1115 Gross per 24 hour Intake -- Output 2450 ml Net -2450 ml Physical Exam General: comfortable HENT: NC/AT, thrush noted Eyes: Anicteric. Non-injected. Chest: Reduced breath sounds RLL. Permcath at right chest. Cardiovascular: RRR. No murmurs, rubs, or gallops Abdomen: Soft. NT/ND. Normal BS+. Extremities: No signs of clubbing, cyanosis, or edema. Skin: Warm. Dry. Neurological: AOx3, Moves all extremities spontaneously Psych: Appropriate mood and affect Medications SCHEDULED MEDICATIONS: And 0.9% NaCl injection 3 mL, Intracatheter, q8h amLODIPine (Norvasc) tablet 10 mg, Oral, AT BEDTIME carvedilol (Coreg) tablet 12.5 mg, Oral, BID WC cloNIDine (Catapres) patch 0.2 mg, Transdermal, q7 days cloNIDine patch placement confirmation, Transdermal, BID epoetin deyanira-EPBX (Retacrit) injection 8,000 Units, Intravenous, DIALYSIS TUE, MARLIN, & SAT heparin injection 5,000 Units, Subcutaneous, TID hydrALAZINE (Apresoline) tablet 100 mg, Oral, TID losartan (Cozaar) tablet 100 mg, Oral, QDAY polyethylene glycol 3350 (Miralax) packet 17 g, Oral, BID ?? senna-docusate (Senokot-S) tablet 1 tablet, Oral, BID ?? CONTINUOUS MEDICATIONS: PRN MEDICATIONS: 0.9% NaCl injection 1-10 mL, Intracatheter, PRN acetaminophen (Tylenol) tablet 500 mg, Oral, q4h PRN albuterol HFA (Proventil; Ventolin; Proair) 108 (90 Base) MCG/ACT inhaler 2 puff, Inhalation, q6h PRN albuterol-ipratropium (Duo-Neb) nebulizer solution 3 mL, Inhalation, q4h PRN glycerin (adult) suppository 1 suppository, Rectal, QDAY PRN hydrALAZINE (Apresoline) injection 15 mg, Intravenous, q4h PRN labetalol (Normodyne; Trandate) injection 20 mg, Intravenous, q2h PRN ?? senna (Senokot) tablet 8.6 mg, Oral, QDAY PRN Data Review Recent Labs Component Name 09/06/22 0701 09/03/22 0649 09/01/22 0706 WBC 7.9 8.5 8.8 HGB 8.2* 7.8* 7.4* HCT 24.6* 24.0* 23.3* PLTCOUNT 223 214 205 Recent Labs Component Name 09/06/22 0701 08/15/22 0339 03/09/22 1312 SODIUM - - 140 POTASSIUM 4.0 - 3.9 CHLORIDE - - 109 CO2 18* - 21 BUN 77* - 65* CREATININE 4.31* - 2.74* CALCIUM 9.2 - 8.7 ALBUMIN - - 3.6 ALT - - 12 AST - - 14 GLUCOSE 100 - 99 - = values in this interval not displayed. 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 The renal parenchymal echogenicity is normal. There is a 1.5 x 1.1 x 1 cm simple cyst within the upper pole of the right kidney. There is no evidence of a solid renal mass, renal calculi, or hydronephrosis. - Sees nephrology (Dr. Reyes) as outpatient; recent biopsy due t nephrotic range proteinuria thatnoted hypertensive nephrosclerosis - R IJ CVC placed 08/23,replaced by permcath on 08/25 - Pt was since then dialyzed regularly with ~ 8 L UF, Oxygen requirement improved from 15 L/min to 3 L/min - Renal function: cre 4.3 BUN 77 yesterday - Electrolytes Na 136 K 4 yesterday - acid base CO2 18 yesterday - HD today with 3.5 hrs / 2 L UF, 3K bath - renally dose medications - please start nephrocaps daily #Hypertension - BP 150/51 mmHg - continue Hydral 100 tid, - continue clonidine 0.2 mg patch qweek - continue Coreg 12.5 mg bid, - continue amlod 10mg, - continue losartan 100 mg, ?? #Normocytic Anemia - last Hb 8.2 - Iron studies ordered this hospitalization: - Iron 77 - TSat 31% - TIBC 248 - Ferritin 180 - c/w Retacrit 8000U TTS with hemodialysis # BMD CKD - Ca 9.2 alb 2.4 corrected Ca 10.5 - Phos 6.6 yesterday - start renvela 800 mg tid with meals DC planning: Pt follows Dr. Reyes in [place], family wants pt to be in [facility]. ?? Patient was seen and discussed with attending physician, Dr. Philomena Aleman MD Nephrology Fellow #[phone] 09/07/2022 1:11 PM NICIAN HELPER INSTRUMENT Associated attestation - Srini Quach MD - 09/07/2022 3:55 PM TECHNICIAN HELPER INSTRUMENT Nephrology Attending Physician I have seen and examined the patient with house-staff on round. I agree with the house-staff note. Please also see my dialysis note from today. Srini Quach MD Division of Nephrology * Lexi Holden, GERA - 09/07/2022 11:32 AM CST Goal met 2L removed, blood returned to patient, HD catheter flushed with NS and capped, VS WDL, no medications given during treatment Problem: Hemodynamic Status/Cardiac Output Goal: Patient has stable vital signs and fluid balance Outcome: Progressing Problem: Fluid and Electrolyte Imbalance Goal: Fluid and electrolyte balance are achieved/maintained Outcome: Progressing Problem: Infection Goal: Signs and symptoms of infections are decreased or avoided Outcome: Progressing NICIAN HELPER INSTRUMENT * Dmitriy Mari MSW - 09/07/2022 11:08 AM CST Update: Pt daughter Stacy Sheppard [phone], is potentially interested by [facility] and wants discussion with her other sister and will follow up with SW tomorrow Update: Fax was received and it is in review. Could take up to 72 hours for a response on the fast appeal. SW followed up on the teams attempts for peer 2 peer. [employer]nanotified social psychologist that the period for peer 2 peer has and SW was giving incorrect information. [employer] faxed over the denial letter to the current social psychologist that stated that before the pt was on [address] there was an insurancedenial that was not communicated. The next step was completed by social psychologist the denial letter, written appeal letter and updated clinicals was faxed to . Pt is interested in ARU at [facility] fax # ). SW update [place] on what happened with the communication errors. BRADY checked to make sure [employer] received the faxed over information ( ) and phone number . Reference #[id number] BRADY Delatorre student [id number] 09/07/2022 NICIAN HELPER INSTRUMENT * Jero Orozco MD - 09/07/2022 10:34 AM CST GENERAL INTERNAL MEDICINE Progress note 09/07/2022 10:34 AM Admit Date: 08/15/2022 Subjective: Ms. Rea reports that she continues to feels well today. She does not endorse any new concerns atthis time; no fevers, chills, angina, or dyspnea with her current level of supplemental oxygen. No acute events reported overnight per nursing staff Medications: MAR reviewed Physical Examination: BP 121/58 Pulse 90 Temp 97.7 ??F (36.5 ??C) (Oral) Resp 18 Ht 1.727 m (5' 7.99 ) Wt 73.5 kg (162 lb) SpO2 95% GEN: NAD, resting comforatbly in bed. RESP: Clear to auscultation bilaterally. No wheezing or crackles noted. CARDIAC: Regular rate and rhythm. No murmurs, rubs, or gallops noted. GI: Abdomen soft, non tender, and non-distended. Bowel sounds noted. NEURO: Alert and interactive Labs: Relevant labs reviewed, discussed below Radiology: Relevant imaging reviewed, discussed below Assessment: Kirsty Rea is an 81 year old woman who presented with weakness to her local healthcare facilityand was found have a pontine intraparenchymal hemorrhage. She was transferred to U on August 15 and was initially managed in the neuro ICU. Unfortunately, her hospitalization was complicated by acute hypoxic respiratory failure and acute renal failure which required initiation of intermittent hemodialysis. She clinically improved and was felt to be appropriate for transfer to the general medical floor in the evening August 27. Plan: # Pontine intraparenchymal hemorrhage - She was evaluated by Neurology and Neurosurgery. No plan for surgical intervention. Continue medical management. - Per neurology recommendations systolic blood pressure goal is less than 180 mmHg. # Hypertensive emergency - We will continue treatment with amlodipine, losartan, carvedilol, hydralazine, and clonidine. - We will provide IV hydralazine or labetalol as needed for systolic blood pressure greater than 180 mmHg. # Acute hypoxic respiratory failure # Pulmonary edema, likely secondary to acute renal failure # Aspiration pneumonia - We will continue to provide supplemental oxygen as needed - Of note she was previously treated with a five-day course of piperacillin/tazobactam for presumedaspiration pneumonia # Acute renal failure # Chronic kidney disease stage 5 - She required initiation of hemodialysis during this hospitalization - Nephrology following, appreciate their assistance in helping her plan of care # Anemia - Suspect acute on chronic due to hospitalization and hx of CKD. - We will follow and provide RBCs as needed # Pharyngeal dysphagia - We appreciate the assistance of speech therapy and developing her plan of care - She was advanced to a dysphagia diet earlier in this hospitalization. DVT PPx: Heparin TID Jero Ernesto, MD General Internal Medicine 09/07/2022 10:34 AM NICIAN HELPER INSTRUMENT * Vanessa Blakely SLP - 09/07/2022 9:24 AM CST [facility] Department of Physical Medicine & Rehabilitation Progress Note Patient: Kirsty Rea [facility] Record Number: [id number] Date of : 1940 Age: [age] year old 09/07/22 0924 Missed Visit Missed Visit Procedure Off Floor Patient off the floor Dialysis Vanessa Barr M.S., [facility] Speech Language Pathologist [phone] NICIAN HELPER INSTRUMENT * María Sotelo RD/DENEEN - 09/07/2022 9:13 AM CST Nutrition Re-Assessment Brief Synopsis: Patient is at Nutrition Risk; Specific criteria can be found in assessment below Nutrition Plan: Continue Current diet +Nepro (425 kcal, 19 gm protein) once daily with meals +Steve BID (7gm arginine, 7gm glutamine, 2.5g collagen protein, 300mg VIT C, 9.5mg zinc) w/ meals Recommendations to Physician: None, see above Comments: Pt scheduled for reassessment. Pt diet has advanced per ST recommendations to easy to chew/mechanical soft diet. Noted that pt remains on fluid restriction of 1000ml. PO intakes since diet advancement remain low, 0-40% of meals consumed. Pt to receive iHD today, weight trending down. Wound to medical coccyx. Mild edema remains in LE. Phos 6.6 Last BM 09/06. Sending Nepro supplement to provide additional calories/protein, sending once daily due to fluid restriction. Sending Steve to assist in wound healing to coccyx. Assessment: Med/Surg History and Clinical Diagnoses: past medical history of HTN, CKD3, Morphea and osteopenia transferred from [facility] to [facility] Neuro ICU for pontine intraparenchymal hemorrhage. Diet order accuracy Current diet order: Easy to Chew/Mechanical Soft Current tube feeding order: d/c Nutrition recommendation: agree with current nutrition order P.O.Intake for the past 48 hrs:No data recorded Food Allergies: No known food allergies GI Concerns: None Chewing/Swallowing: Dysphagia (NPO with TF) Pain affecting intake: No Admission weight: Weight: 167 lb 8.8 oz (76 kg) (08/15/22 0315) Recent Weights/Methods 08/27/2022 0400 08/27/2022 1800 08/29/2022 0540 08/30/2022 0400 08/31/2022 0400 09/01/2022 0400 09/02/2022 0400 09/06/2022 0400 Weight: 185 lb 3 oz (84 kg) -- 168 lb (76.2 kg) 166 lb 6.4 oz (75.5 kg) 166 lb 8 oz (75.5 kg) 162 lb (73.5 kg) 159 lb 12.8 oz (72.5 kg) 162 lb (73.5 kg) Weight Method (Utilize Scales): Bedscale Bedscale Bedscale -- Bedscale Bedscale Bedscale Bedscale BMI: Body mass index is 24.64 kg/m??. BMI Range: Overweight Wt Comments: reviewed, weight trending down over the last week by -6# Height: 5' 7.99 (172.7 cm) IBW/lb (Calculated) Female: 139.96, Laboratory values reviewed. Recent Labs Component Name 09/06/22 0701 09/03/22 0649 09/01/22 0706 08/19/22 2100 08/19/22 1056 08/18/22 1011 08/17/22 0405 08/15/22 0339 03/09/22 1312 BUN 77* 45* 72* - 66* - 58* - 65* CREATININE 4.31* 3.18* 3.83* - 4.65* - 4.22* - 2.74* NA 136 136 135* - 127* - 134* - - POTASSIUM 4.0 4.8* 4.2 - 4.0 - 3.0* - 3.9 CL 95* 101 100 - 99 - 105 - - CO2 18* 23 27 - 17* - 16* - 21 GLUCOSE 100 117* 146* - 100 - 105 - 99 CALCIUM 9.2 9.5 9.6 - 8.6 - 8.7 - 8.7 PROT - - - - 4.9* - 5.1* - - ALB 2.4* 2.4* 2.5* - - - 2.8* - - ALKPHOS - - - - - - - - 72 ALT - - - - - - - - 12 AST - - - - - - - - 14 ANIONGAP 27* 17 12 - 15 - 16 - - BCR 18 14 19 - 14 - 14 - - OSMOLALITY 305* 295 304* - 283 - 295 - - EGFR 10* 14* 11* - 9* - 10* - 16* EGFRAFR - - - - - - - - 18* - = values in this interval not displayed. Medications noted. Current Facility-Administered Medications Medication ??? 0.9% NaCl injection 3 mL And ??? 0.9% NaCl injection 1-10 mL ??? acetaminophen (Tylenol) tablet 500 mg ??? albuterol HFA (Proventil; Ventolin; Proair) 108 (90 Base) MCG/ACT inhaler 2 puff ??? albuterol-ipratropium (Duo-Neb) nebulizer solution 3 mL ??? amLODIPine (Norvasc) tablet 10 mg ??? carvedilol (Coreg) tablet 12.5 mg ??? cloNIDine (Catapres) patch 0.2 mg And ??? cloNIDine patch placement confirmation ??? epoetin deyanira-EPBX (Retacrit) injection 8,000 Units ??? glycerin (adult) suppository 1 suppository ??? heparin injection 5,000 Units ??? hydrALAZINE (Apresoline) injection 15 mg ??? hydrALAZINE (Apresoline) tablet 100 mg ??? labetalol (Normodyne; Trandate) injection 20 mg ??? losartan (Cozaar) tablet 100 mg ??? polyethylene glycol 3350 (Miralax) packet 17 g ??? senna (Senokot) tablet 8.6 mg ??? senna-docusate (Senokot-S) tablet 1 tablet Skin/Wound: sacral ulcer (reddened area) Estimated Energy Needs: KCAL: 1900 (25kcal/kg of ABW) Protein (g): 76 (1g/kg of ABW) Fluid (ml): 1 ml/kcal Needs based on: Kcal/kg- (Comment) (ABW = 76kg) Recommended Access Route: PO Education needed: Stroke Nutrition Therapy Education Provided: Yes Expected level of compliance: Good Nutrition Care Process (1) Nutrition Diagnostic Statement: Inadequate oral intake related to:: decreased ability to consume or tolerate food and/or fluids due to illness as evidenced by:: oral intake insufficient to meet estimated requirements Nutrition Diagnostic Statement Progress: Nutrition problem continues Nutrition Intervention: Enteral nutrition: Monitoring: GI, PO intake, WT, labs, medications Evaluation: Nutrition Goal: Total intake will meet estimated nutrient needs Nutrition Goal Timeframe: Throughout stay Nutrition Goal Progress: Continue with current goal Ascom [id number] NICIAN HELPER INSTRUMENT * Aroldo Gomez OT - 09/07/2022 9:12 AM CST [facility] Department of Physical Medicine & Rehabilitation Progress Note Patient: Kirsty Rea [facility] Record Number: [id number] Date of : 1940 Age: [age] year old 09/07/22 0912 Missed Visit Missed Visit Procedure off the floor Patient off the floor Dialysis NICIAN HELPER INSTRUMENT * Lexi Holden RN - 09/07/2022 6:36 AM CST Diagnosis (TOÑA/CRF):crf Non-Renal Diagnosis:weakness, vomiting Isolation No active isolations Does patient have signs or symptoms of respiratory infection(fever, cough, shortness of breath):no Allergies Allergen Reactions ??? Ramipril Other Other reaction(s): Other (See Comments) Kidney Damage Kidney Damage Code Status:full Orientation Status:x3 On telemetry/Rhythm:no Oxygen:2L Given any medications:no Need for pain medications:no Blood pressure issues:no On any drips:no Is patient diabetic:no Any labs to draw:no Any other procedures today:no Any concerns about this patient :no Any medications to be given with dialysis:epoetin Report from:Mery Barr RN Phone number:[phone] NICIAN HELPER INSTRUMENT * Jaclyn Gomez RN - 09/06/2022 4:50 PM CST Problem: Fall Risk Goal: Fall risk and fall related injury risk are minimized (interventions related to the fall risk can be found in the flowsheet documentation) Outcome: Progressing Problem: Neurological Deficit Goal: Neurological status is stable or improving Outcome: Progressing Problem: Hemodynamic Status/Cardiac Output Goal: Patient has stable vital signs and fluid balance Outcome: Progressing Problem: Oxygenation/Respiratory Function Goal: Respiratory rate/effort will be within specified limits Outcome: Progressing Problem: Mobility Goal: Patient's mobility/activity will be maintained as optimum level for age, diagnosis and physical limitations Outcome: Progressing Goal: Continuum of care needs are further met through referral to outpatient services when appropriate. Outcome: Progressing Goal: Patient reports the ability to perform Activities of Daily Living. Outcome: Progressing Problem: Communication Impairment/Dysarthria Goal: Ability to express needs and understand communication Outcome: Progressing Problem: Nutrition Goal: Nutritional status is improving Outcome: Progressing Problem: Aspiration Precautions Goal: Patient's risk of aspiration is minimized Outcome: Progressing Problem: Glycemic Control Goal: Clinical indication of glycemia balance is achieved Outcome: Progressing Problem: Knowledge Deficit,Education,Discharge Plan Goal: The patient/family will understand cerebrovascular disease and its symptoms, treatment and management Outcome: Progressing Problem: Mobility Goal: STG - Patient will ambulate Outcome: Progressing Problem: Pain/Discomfort Goal: Patient exhibits reduced pain/discomfort as evidenced by pain scores Outcome: Progressing Goal: Patient uses pharmacological and non-pharmacological pain management strategies. Outcome: Progressing Goal: Patient verbalizes acceptable level of pain relief and ability to engage in desired activity. Outcome: Progressing Problem: Ineffective Airway Clearance Goal: Patent airway Outcome: Progressing Problem: Swallowing Goal: LTG - Patient will demonstrate safe swallowing Intervention/techniques Outcome: Progressing Goal: LTG - Patient will tolerate the least restrictive diet consistency to allow for safe consumption of daily meals Outcome: Progressing Goal: STG - Patient will complete swallowing exercises Outcome: Progressing Goal: STG - Patient will participate in instrumental assessment of swallowing as appropriate Outcome: Progressing Problem: Oral Intake: Inadequate oral intake Goal: Total intake will meet estimated nutrient needs Outcome: Progressing Problem: Fluid and Electrolyte Imbalance Goal: Fluid and electrolyte balance are achieved/maintained Outcome: Progressing Problem: Infection Goal: Signs and symptoms of infections are decreased or avoided Outcome: Progressing Problem: Skin Integrity Goal: Skin integrity is maintained or improved Outcome: Progressing Problem: Balance Goal: LTG - Patient will maintain balance to allow for safe mobility Outcome: Progressing NICIAN HELPER INSTRUMENT * Ying Diaz, PT - 09/06/2022 2:00 PM CST [facility] Physical Medicine and Rehabilitation Physical Therapy Progress Note Patient: Kirsty Rea [facility] Record Number: [id number] Date of : 1940 Age: [age] year old PPE worn by staff: gloves;mask - procedural Discharge Recommendation: Patient will benefit from intense 3 hour per day multidisciplinary inpatient therapies due to patient with decreased functional mobility. SUBJECTIVE: Subjective: Agreeable to PT session, of note per RN recent OT session Pain Assessment: Pain Rating Score #: 0 Follow-up for pain: No follow-up for pain indicated and patient agreed to proceed with treatment PRECAUTIONS: Weight Bearing Status: (no restrictions) Activity Level: (up in chair with assist) OBJECTIVE: At start of therapy session, patient found in patient bedside chair and with chair alarm on General Appearance: Patient is a 81 YF received in chair, NAD LDAs: IV's: Peripheral line and Oxygen Nasal Cannula Vitals: (*Assess the 3 levels of oxygen saturations both for room air and 02 unless rest on room air is 88% or less). Rest BP: 140/54 HR: 87 Sp02 Sp02 98 Room Air L O2 3LNC Ex/Gait/Activity Without 02 BP: HR: Sp02 Room Air Ex/Gait/Activity With 02 BP: HR: Sp02 L O2 Post Activity BP: HR: Sp02 Sp02 L O2 Room Air Observations: vital signs monitored and stable on 3LNC. Mental Status/Cognition: Level of Consciousness-Adult: Alert;Eyes Open Spontaneously Orientation Level: Oriented to Person;Oriented to Place;Oriented to Time Cognition: Follows Commands-Consistent Mobility: A gait belt and non-slip socks were used for all out of bed activity this date. Bed Mobility: Supine to Sit: Activity Does Not Occur Sit to Supine: Activity Does Not Occur (in chair pre/post) Transfers: Sit to Stand: Moderate Assistance;Maximum Assistance (Trial 1-2 MODA for boost to upright, trial 3 requires MAXA and unable to come to full upright) Stand to Sit: Moderate Assistance;Maximum Assistance (trials 2-3 MODA For controlled descent. trial3 MAXA for controlled descent 2/2 poor eccentric control potentially related to fatigue) Transfer Device: Gait belt (BEEF BREAKER) Gait: Weight Bearing Status: (no restrictions) Distance Ambulated: 0 FEET (not attempted, reports fatigue following OT session, assist for standing) Balance: Balance Scales/Tests Used: Sitting: Static/Dynamic;Standing: Static/Dynamic Sitting - Static: Fair + Sitting - Dynamic: Fair Standing - Static: With Both Upper Extremity's Support;Poor + Standing - Dynamic: Poor;With Both Upper Extremity's Support ACTIVITY TOLERANCE: Patient's activity tolerance: fair TREATMENT/INTERVENTIONS: ROM reclined: ankle pumps, heel slides, SAQ, SLR x10 BLEs, seated LAQ;, transfer training with repeated transfers, balance activities and monitoring of vitals Modified [place]: Current Modified [place] Score: 4 EDUCATION: While performing PT, Patient was instructed in:functional mobility training, energy conservation, safety awareness/fall precautions , home exercise program, pursed lip breathing techniques, use of adaptive equipment, discharge planning, use of call light Presented to patient who demonstrates Fair understanding of instructions given. ASSESSMENT: Patient would benefit from additional Physical Therapy sessions to achieve the following functionalgoals to enhance independence. Short Term Goals: Goal Formation With patient Patient will perform bed mobility??with minimal assist Patient will transfer sit to/from stand??with minimal assist Patient will transfer bed to/from chair??with minimal assist Patient will ambulate??50??feet with minimal assist??and appropriate AD Non Destructive Testing Scientist Goal(s): Patient to discharge to appropriate next [...] on, with call light within reach, with RNJaclyn aware. NICIAN HELPER INSTRUMENT * Lili Peters, OT - 09/06/2022 1:47 PM CST [facility] Physical Medicine and Rehabilitation Occupational Therapy Progress Note Patient: Kirsty Rea Med Record Number: [id number] Date of : 1940 Age: [age] year old PPE worn by staff: gloves;mask - procedural PPE worn by patient: gown - patient, clean;socks - clean Patient will benefit from intense 3 hour per day multidisciplinary inpatient therapies due to??decreased mobility/ADL independence. Nurse contacted regarding patient status and/or discharge plan. Activity Level: ambulate PRECAUTIONS: SUBJECTIVE: Subjective: Pt agreeable to OT session Pain Assessment: Pain Rating Score #: 0 Follow-up for pain: No follow-up for pain indicated and patient agreed to proceed with treatment OBJECTIVE: At start of therapy session, patient found in bed and with bed alarm on General Appearance: 81 y/o female laying supine in bed In NAD LDA: IV's: Peripheral line Vitals: (*Assess the 3 levels of oxygen saturations both for room air and 02 unless rest on room air is 88% or less). Rest BP: 140/54 HR: 86 Sp02 Sp02 94% Room Air L O2 RA Ex/Gait/Activity Without 02 BP: HR: Sp02 Room Air Ex/Gait/Activity With 02 BP: HR: Sp02 L O2 Post Activity BP: HR: Sp02 Sp02 L O2 Room Air Observations: Vitals monitored throughout session. Pt denies nausea/dyspnea. Mental Status/Cognition: Level of Consciousness-Adult: Alert;Lethargic Orientation Level: Oriented X4 (person, place, month/year, stroke) Cognition: Follows Commands-Consistent;Attention/concentration-decreased;Follows one step commands;Processing-delayed;Judgement-decreased;Safety awareness-decreased Attention Span: Attends with cues to redirect;Difficulty dividing attention;Difficulty attending todirections Memory: Appears intact Following Commands: Follows one step commands with increased time Safety Judgement: Decreased awareness of need for assistance Awareness of Errors: Decreased awareness of deficits;Assistance required to identify errors made;Assistance required to correct errors made Problem Solving: Assistance required to generate solutions;Assistance required to identify errors made;Assistance required to implement solutions Mobility: a gait belt and non-slip socks were used for all out of bed activity this date. Bed Mobility: Supine to Sit: Moderate Assistance with HOB flat Sit to Supine: Activity Does Not Occur Transfers: Sit to Stand: Moderate Assistance Bed to Chair: Moderate Assistance to Right Type of Transfer: Stand Pivot Transfer Transfer Device: Gait belt (BEEF BREAKER) Balance: Sitting - Static: Poor;With Both Upper Extremity's Support (multiple LOB, strong forwards and lateral leans) Sitting - Dynamic: Poor Standing - Static: With Both Upper Extremity's Support;Poor Standing - Dynamic: Poor;With Both Upper Extremity's Support Comments: Activities of Daily Living: Upper Body Dressing: Maximal Assistance (to adjust gown for mobility) Lower Body Dressing: Maximal Assistance (to adjust gown for mobility) Splint Issued/Checked: none ACTIVITY TOLERANCE: Patient's activity tolerance: fair. Modified [place]: Current Modified Elizabeth Score: 4 TREATMENT/INTERVENTIONS: ADL training Adaptive equipment training Cognitive retraining Functional transfer training Endurance training Bed mobility Energy conservation Safety awareness HEP training EDUCATION: While performing OT, Patient was instructed in:functional mobility training, self-care training, weight bearing status, cognitive retraining, energy conservation, pulmonary education, safety awareness/fall precautions , home exercise program, pursed lip breathing techniques, discharge planning Presented to patient who demonstrates Fair understanding of instructions given. INFORMED CONSENT TO TREATMENT: Plan of care is discussed but patient with questionable understanding. ASSESSMENT: Patient continues to benefit from skilled Occupational Therapy to achieve the following functional goals. ?? Short Term Goals: Goal Formation?With patient Patient will perform grooming??standing at sink and with stand by assist Patient will transfer to standard toilet??with minimal assist Patient will perform supine to/from sit??with minimal assist Patient will transfer sit to stand??with minimal assist Patient will perform bed to chair??with minimal assist ?? Non Destructive Testing Scientist Goal(s): Patient to discharge to appropriate next level of inpatient care. ?? Plan: Patient continues to benefit from skilled therapy services If patient is discharged from the facility, this note serves as a discharge summary if further occupational therapy visits did not occur. Refer to filed flowsheet for further details. Following therapy session, patient left in patient bedside chair, with chair alarm on, with call light within reach, with RNJaclyn aware. 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 Her hosp stay c/b acute hypoxic respiratory failure and acute renal failure which required initiation of intermittent hemodialysis.Initially she was on 15 L/min and now on 5 L/min.Also suspicion of Aspn PNA. Subjective: Interval history: - NAEON - pt was seen and examined in her room. - she is lying comfortable, states she is feeling well today. - denies CP, N/V, abd pain, fever, chills. - afebrile, vitals are acceptable, on 3 L O2. UOP 600 ml yesterday Objective: Patient Vitals for the past 6 hrs: Temp Pulse Resp BP BP Method 09/06/22 09 -- -- -- 141/52 -- 09/06/22 0930 -- 89 -- 141/52 -- 09/06/22 0725 98.1 ??F (36.7 ??C) 89 22 141/52 Automatic Intake/Output Summary (Last 24 hours) at 09/06/2022 1051 Last data filed at 09/06/2022 0112 Gross per 24 hour Intake 450 ml Output 600 ml Net -150 ml Physical Exam General: comfortable HENT: NC/AT, thrush noted Eyes: Anicteric. Non-injected. Chest: Reduced breath sounds RLL. Permcath at right chest. Cardiovascular: RRR. No murmurs, rubs, or gallops Abdomen: Soft. NT/ND. Normal BS+. Extremities: No signs of clubbing, cyanosis, or edema. Skin: Warm. Dry. Neurological: AOx3, Moves all extremities spontaneously Psych: Appropriate mood and affect Medications SCHEDULED MEDICATIONS: And 0.9% NaCl injection 3 mL, Intracatheter, q8h amLODIPine (Norvasc) tablet 10 mg, Oral, AT BEDTIME carvedilol (Coreg) tablet 12.5 mg, Oral, BID WC cloNIDine (Catapres) patch 0.2 mg, Transdermal, q7 days cloNIDine patch placement confirmation, Transdermal, BID heparin injection 5,000 Units, Subcutaneous, TID hydrALAZINE (Apresoline) tablet 100 mg, Oral, TID losartan (Cozaar) tablet 100 mg, Oral, QDAY polyethylene glycol 3350 (Miralax) packet 17 g, Oral, BID senna-docusate (Senokot-S) tablet 1 tablet, Oral, BID [COMPLETED] glycerin (adult) suppository 1 suppository, Rectal, Once ?? [START ON 09/07/2022] epoetin deyanira-EPBX (Retacrit) injection 8,000 Units, Intravenous, q7 days ?? CONTINUOUS MEDICATIONS: PRN MEDICATIONS: 0.9% NaCl injection 1-10 mL, Intracatheter, PRN acetaminophen (Tylenol) tablet 500 mg, Oral, q4h PRN albuterol HFA (Proventil; Ventolin; Proair) 108 (90 Base) MCG/ACT inhaler 2 puff, Inhalation, q6h PRN albuterol-ipratropium (Duo-Neb) nebulizer solution 3 mL, Inhalation, q4h PRN glycerin (adult) suppository 1 suppository, Rectal, QDAY PRN hydrALAZINE (Apresoline) injection 15 mg, Intravenous, q4h PRN labetalol (Normodyne; Trandate) injection 20 mg, Intravenous, q2h PRN ?? senna (Senokot) tablet 8.6 mg, Oral, QDAY PRN Data Review Recent Labs Component Name 09/06/22 0701 09/03/22 0649 09/01/22 0706 WBC 7.9 8.5 8.8 HGB 8.2* 7.8* 7.4* HCT 24.6* 24.0* 23.3* PLTCOUNT [phone] Recent Labs Component Name 09/06/22 0701 08/15/22 0339 03/09/22 1312 SODIUM - - 140 POTASSIUM 4.0 - 3.9 CHLORIDE - - 109 CO2 18* - 21 BUN 77* - 65* CREATININE 4.31* - 2.74* CALCIUM 9.2 - 8.7 ALBUMIN - - 3.6 ALT - - 12 AST - - 14 GLUCOSE 100 - 99 - = values in this interval not displayed. 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 The renal parenchymal echogenicity is normal. There is a 1.5 x 1.1 x 1 cm simple cyst within the upper pole of the right kidney. There is no evidence of a solid renal mass, renal calculi, or hydronephrosis. - Sees nephrology (Dr. Reyes) as outpatient; recent biopsy due t nephrotic range proteinuria thatnoted hypertensive nephrosclerosis - R IJ CVC placed 08/23,replaced by permcath on 08/25 - Pt was since then dialyzed regularly with ~ 8 L UF, Oxygen requirement improved from 15 L/min to 3 L/min - Renal function: cre 4.3 BUN 77 - Electrolytes Na 136 K 4 - acid base CO2 18 - UOP 600 ml yesterday - No HD today. planning tomorrow with TTS schedule - please start nephrocaps daily #Hypertension - BP 141/52 mmHg - continue Hydral 100 tid, - continue clonidine 0.2 mg patch qweek - continue Coreg 12.5 mg bid, - continue amlod 10mg, - continue losartan 100 mg, ?? #Normocytic Anemia - last Hb 7.8 - Iron studies ordered this hospitalization: - Iron 77 - TSat 31% - TIBC 248 - Ferritin 180 - c/w Retacrit 8000U TTS with hemodialysis # BMD CKD - Ca 9.2 alb 2.4 corrected Ca 10.5 - Phos 6.6 - start renvela 800 mg tid with meals DC planning: Pt follows Dr. Reyes in [place], family wants pt to be in [facility]. ?? Patient was seen and discussed with attending physician, Dr. Philomena Aleman MD Nephrology Fellow #[phone] 09/06/2022 10:51 AM NICIAN HELPER INSTRUMENT Associated attestation - Srini Quach MD - 09/06/2022 4:41 PM TECHNICIAN HELPER INSTRUMENT Nephrology Attending Physician I have seen and examined the patient with house-staff on round. I agree with the house-staff note. Briefly, Ms. 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 Today no new complaints. R IJ TDC c/d/I. Plan for HD tomorrow. She has a dialysis chair [facility] at [facility]. Srini Quach MD Division of Nephrology * Amanda Almeida MSW - 09/06/2022 10:38 AM CST SW following for DC planning. Discussed status of review with Dr. Orozco, he states Dr. Patel called and left a message last week but received no call back. Dr. Orozco attempted to call today and remained on hold for a long time with no response. NIMO Degroot 09/06/2022 [phone] NICIAN HELPER INSTRUMENT * Jero Orozco MD - 09/06/2022 10:12 AM CST GENERAL INTERNAL MEDICINE Progress note 09/06/2022 10:12 AM Admit Date: 08/15/2022 Subjective: Ms. Rea reports that she generally feels well today. She does not endorse any new concerns at this time; no fevers, chills, angina, or dyspnea with her current level of supplemental oxygen. No acute events reported overnight per nursing staff Medications: MAR reviewed Physical Examination: BP 141/52 Pulse 89 Temp 98.1 ??F (36.7 ??C) (Axillary) Resp 22 Ht 1.727 m (5' 7.99 ) Wt 73.5 kg (162 lb) SpO2 96% GEN: NAD, resting in bed. RESP: Clear to auscultation bilaterally. No wheezing or crackles noted. CARDIAC: Regular rate and rhythm. No murmurs, rubs, or gallops noted. GI: Abdomen soft, non tender, and non-distended. Bowel sounds noted. NEURO: Alert and interactive Labs: Relevant labs reviewed, discussed below Radiology: Relevant imaging reviewed, discussed below Assessment: Kirsty Rea is an 81 year old woman who presented with weakness to her local healthcare facilityand was found have a pontine intraparenchymal hemorrhage. She was transferred to [facility] on August 15 and was initially managed in the neuro ICU. Unfortunately, her hospitalization was complicated by acute hypoxic respiratory failure and acute renal failure which required initiation of intermittent hemodialysis. She clinically improved and was felt to be appropriate for transfer to the general medical floor in the evening August 27. Plan: # Pontine intraparenchymal hemorrhage - She was evaluated by Neurology and Neurosurgery. No plan for surgical intervention. Continue medical management. - Per neurology recommendations systolic blood pressure goal is less than 180 mmHg. # Hypertensive emergency - We will continue amlodipine, losartan, carvedilol, hydralazine, and clonidine. - We will provide IV hydralazine or labetalol as needed for systolic blood pressure greater than 180 mmHg. # Acute hypoxic respiratory failure # Pulmonary edema, likely secondary to acute renal failure # Aspiration pneumonia - We will continue to provide supplemental oxygen as needed - We will follow for improvement in her oxygenation as her volume is better managed through hemodialysis. - Of note she was previously treated with a five-day course of piperacillin/tazobactam for presumedaspiration pneumonia # Acute renal failure # Chronic kidney disease stage 5 - She required initiation of hemodialysis during this hospitalization - Nephrology following, appreciate their assistance in helping her plan of care # Anemia - Suspect acute on chronic due to hospitalization and hx of CKD. - We will follow and provide RBCs as needed # Pharyngeal dysphagia - We appreciate the assistance of speech therapy and developing her plan of care - She was advanced to a dysphagia diet earlier in this hospitalization. DVT PPx: Heparin TID Jero Orozco MD General Internal Medicine 09/06/2022 10:12 AM NICIAN HELPER INSTRUMENT * Vanessa Blakely SLP - 09/06/2022 9:36 AM CST [facility] Physical Medicine and Rehabilitation Swallow Treatment Patient: Kirsty Rea Med Record Number: [id number] Date of : 1940 Age: [age] year old PPE: PPE worn by staff: mask - N95;gloves PPE worn by patient: gown - patient, clean Impressions: Pt observed with solid trials during visit this date with an improvement in mastication and bolus clearance with dentures in place. Pt continues to utilize a chin tuck posture independently without any clinical signs of aspiration. Recommend advancing Pt with a Easy to Chew/Mechanical Soft diet texture with thin liquids while following aspiration precautions listed below. HARBORMASTER will continue to follow up for diet tolerance and ongoing assessment regarding possible diet advancement. Recommendations: Diet Liquids Recommendation: Thin/ Thin (0) Diet Solids Recommendation: Mechanical Soft/Easy to Chew (EC7) Recommended Form of Meds: Whole;With liquid Compensatory Swallowing Strategies: 90 Degrees elevation for all oral intake;Alternate solids and liquids;Chin tuck;Eat/Feed slowly;Small bites/sips;No straws Recommended Tests/Consults: Recommendations: Dysphagia Treatment Discharge Recommendations: Speech therapy is recommended to improve swallow function. SUBJECTIVE: Patient Goals: None stated Pain Assessment: Pain Rating Score #: 0 Follow-up for pain: No follow-up for pain indicated and patient agreed to proceed with treatment OBJECTIVE: Level of Consciousness: alert Positioning: Upright in bed Respiratory Status: nasal cannula: 3lpm Swallow Trials: Ice chips: Thin Liquid: Presentation: Cup-Self Fed Oral: Within Functional Limits Pharyngeal: Delayed Swallow;Decreased Laryngeal Elevation Pelion Thick Liquid: Presentation: Cup-Assisted;Spoon-Assisted Oral: Within Functional Limits Pharyngeal: Delayed Swallow;Decreased Laryngeal Elevation;Cough - Immediate Honey Thick Liquid: Puree: Presentation: Spoon-Self Fed Oral: Within Functional Limits Pharyngeal: Decreased Laryngeal Elevation Ground Texture: Presentation: Spoon-Assisted Oral: Increased Anterior to Posterior Transit Pharyngeal: Decreased Laryngeal Elevation Solid: Presentation: Assisted Oral: Within Normal Limits Pharyngeal: Delayed Swallow;Decreased Laryngeal Elevation Assessment: Risk For Aspiration: Mild Primary Diagnostic Impression - Oral: Mild Primary Diagnostic Impression - Pharyngeal: Mild;Moderate Treatment/Education/Interventions: While performing HARBORMASTER, Patient was instructed in: results of swallow evaluation and diet/liquid recommendations. Patient demonstrated Good understanding of instructions given. Physician and Nurse contacted regarding results of treatment session. INFORMED CONSENT TO TREATMENT: Plan of care including recommended therapy, goals and frequency, discussed with patient who understands and agrees to proceed. Short Term Goals Patient will tolerate recommended food and liquid consistencies without clinical signs of aspiration. Intermediate Goal (s): Patient to be independent/baseline with functional mobility and self care and be able to safely discharge to prior level of care. Plan: Advance to a mechanical soft/easy to chew diet with thin liquids, HARBORMASTER will follow for diet tolerance Vanessa Barr M.S., [facility] Speech Language Pathologist [phone] NICIAN HELPER INSTRUMENT * Chrissie Johns - 09/06/2022 8:53 AM CST Images from the original note were not included. KIDNEY NAVIGATOR NOTE Outpatient Placement Confirmed: Clinic: [facility] Dialysis [facility] [address] P: [phone] F: [phone] First Day of Treatment: Thursday September 08, 2022 Schedule Day: Schedule Time: 11:45 am Oven Dauber: Dr. Leticia Johns, Dialysis Navigator [facility] P: [phone] Asom: [phone] 09/06/2022 8:53 AM NICIAN HELPER INSTRUMENT * Ольга Cochran RN - 09/06/2022 1:34 AM CST Problem: Fall Risk Goal: Fall risk and fall related injury risk are minimized (interventions related to the fall risk can be found in the flowsheet documentation) Outcome: Progressing Problem: Pain/Discomfort Goal: Patient exhibits reduced pain/discomfort as evidenced by pain scores Outcome: Progressing Problem: Pain/Discomfort Goal: Patient verbalizes acceptable level of pain relief and ability to engage in desired activity. Outcome: Progressing NICIAN HELPER INSTRUMENT * Jaclyn Gomez RN - 09/05/2022 5:45 PM CST Problem: Fall Risk Goal: Fall risk and fall related injury risk are minimized (interventions related to the fall risk can be found in the flowsheet documentation) Outcome: Progressing Problem: Neurological Deficit Goal: Neurological status is stable or improving Outcome: Progressing Problem: Hemodynamic Status/Cardiac Output Goal: Patient has stable vital signs and fluid balance Outcome: Progressing Problem: Oxygenation/Respiratory Function Goal: Respiratory rate/effort will be within specified limits Outcome: Progressing Problem: Mobility Goal: Patient's mobility/activity will be maintained as optimum level for age, diagnosis and physical limitations Outcome: Progressing Goal: Continuum of care needs are further met through referral to outpatient services when appropriate. Outcome: Progressing Goal: Patient reports the ability to perform Activities of Daily Living. Outcome: Progressing Problem: Communication Impairment/Dysarthria Goal: Ability to express needs and understand communication Outcome: Progressing Problem: Nutrition Goal: Nutritional status is improving Outcome: Progressing Problem: Aspiration Precautions Goal: Patient's risk of aspiration is minimized Outcome: Progressing Problem: Glycemic Control Goal: Clinical indication of glycemia balance is achieved Outcome: Progressing Problem: Knowledge Deficit,Education,Discharge Plan Goal: The patient/family will understand cerebrovascular disease and its symptoms, treatment and management Outcome: Progressing Problem: Mobility Goal: STG - Patient will ambulate Outcome: Progressing Problem: Pain/Discomfort Goal: Patient exhibits reduced pain/discomfort as evidenced by pain scores Outcome: Progressing Goal: Patient uses pharmacological and non-pharmacological pain management strategies. Outcome: Progressing Goal: Patient verbalizes acceptable level of pain relief and ability to engage in desired activity. Outcome: Progressing Problem: Ineffective Airway Clearance Goal: Patent airway Outcome: Progressing Problem: Swallowing Goal: LTG - Patient will demonstrate safe swallowing Intervention/techniques Outcome: Progressing Goal: LTG - Patient will tolerate the least restrictive diet consistency to allow for safe consumption of daily meals Outcome: Progressing Goal: STG - Patient will complete swallowing exercises Outcome: Progressing Goal: STG - Patient will participate in instrumental assessment of swallowing as appropriate Outcome: Progressing Problem: Oral Intake: Inadequate oral intake Goal: Total intake will meet estimated nutrient needs Outcome: Progressing Problem: Fluid and Electrolyte Imbalance Goal: Fluid and electrolyte balance are achieved/maintained Outcome: Progressing Problem: Infection Goal: Signs and symptoms of infections are decreased or avoided Outcome: Progressing Problem: Skin Integrity Goal: Skin integrity is maintained or improved Outcome: Progressing Problem: Balance Goal: LTG - Patient will maintain balance to allow for safe mobility Outcome: Progressing NICIAN HELPER INSTRUMENT * Loly Aleman MD - 09/05/2022 11:21 AM CST Nephrology Progress Note 09/05/2022 11:21 AM Patient Name: Kirsty Rea (81 year old) Room Number: 843/01 Attending: Jero Orozco MD Hospital Day: 81 F h/o HTN, CKD stage 5 presented from healthcare facility with 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 Her hosp stay c/b acute hypoxic respiratory failure and acute renal failure which required initiation of intermittent hemodialysis.Initially she was on 15 L/min and now on 5 L/min.Also suspicion of Aspn PNA. Subjective: Interval history: - NAEON - states she is feeling well today. - reports some SOB denies CP, N/V, abd pain, fever, chills - tolerated HD well yesterday with UF of 2.6 L - afebrile, vitals are acceptable, on 4 L O2 Objective: Patient Vitals for the past 6 hrs: Temp Pulse Resp BP 09/05/22 0905 97.9 ??F (36.6 ??C) 91 24 144/57 Intake/Output Summary (Last 24 hours) at 09/05/2022 1121 Last data filed at 09/04/2022 1800 Gross per 24 hour Intake 700 ml Output 2600 ml Net -1900 ml Physical Exam General: comfortable HENT: NC/AT, thrush noted Eyes: Anicteric. Non-injected. Chest: Reduced breath sounds RLL. Permcath at right chest. Cardiovascular: RRR. No murmurs, rubs, or gallops Abdomen: Soft. NT/ND. Normal BS+. : Quijano catheter in place Extremities: No signs of clubbing, cyanosis, or edema. Skin: Warm. Dry. Neurological: AO x 2-3;Moves all extremities spontaneously Psych: Appropriate mood and affect Medications SCHEDULED MEDICATIONS: And 0.9% NaCl injection 3 mL, Intracatheter, q8h amLODIPine (Norvasc) tablet 10 mg, Oral, AT BEDTIME carvedilol (Coreg) tablet 12.5 mg, Oral, BID WC cloNIDine (Catapres) patch 0.2 mg, Transdermal, q7 days cloNIDine patch placement confirmation, Transdermal, BID glycerin (adult) suppository 1 suppository, Rectal, Once heparin injection 5,000 Units, Subcutaneous, TID hydrALAZINE (Apresoline) tablet 100 mg, Oral, TID losartan (Cozaar) tablet 100 mg, Oral, QDAY polyethylene glycol 3350 (Miralax) packet 17 g, Oral, BID senna-docusate (Senokot-S) tablet 1 tablet, Oral, BID ?? [START ON 09/07/2022] epoetin deyanira-EPBX (Retacrit) injection 8,000 Units, Intravenous, q7 days ?? CONTINUOUS MEDICATIONS: PRN MEDICATIONS: 0.9% NaCl injection 1-10 mL, Intracatheter, PRN acetaminophen (Tylenol) tablet 500 mg, Oral, q4h PRN albuterol HFA (Proventil; Ventolin; Proair) 108 (90 Base) MCG/ACT inhaler 2 puff, Inhalation, q6h PRN albuterol-ipratropium (Duo-Neb) nebulizer solution 3 mL, Inhalation, q4h PRN glycerin (adult) suppository 1 suppository, Rectal, QDAY PRN hydrALAZINE (Apresoline) injection 15 mg, Intravenous, q4h PRN labetalol (Normodyne; Trandate) injection 20 mg, Intravenous, q2h PRN ?? senna (Senokot) tablet 8.6 mg, Oral, QDAY PRN Data Review Recent Labs Component Name 09/03/22 0649 09/01/22 0706 08/30/22 0420 WBC 8.5 8.8 9.1 HGB 7.8* 7.4* 7.2* HCT 24.0* 23.3* 22.6* PLTCOUNT 214 205 200 Recent Labs Component Name 09/03/22 0649 08/15/22 0339 03/09/22 1312 SODIUM - - 140 POTASSIUM 4.8* - 3.9 CHLORIDE - - 109 CO2 23 - 21 BUN 45* - 65* CREATININE 3.18* - 2.74* CALCIUM 9.5 - 8.7 ALBUMIN - - 3.6 ALT - - 12 AST - - 14 GLUCOSE 117* - 99 - = values in this interval not displayed. 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 Reyes) as outpatient; recent biopsy due to nephrotic range proteinuria that noted hypertensive nephrosclerosis - R IJ CVC placed 08/23,replaced by permcath on 08/25 - Pt was since then dialyzed regularly with ~ 8 L UF, Oxygen requirement improved from 15 L/min to 3 L/min - Renal function: no new renal panel today - No HD today. Next dialysis 09/07/22 - please start nephrocaps daily - D/c planning: TTS [facility], Dr Reyes ?? #Hypertension - continue Hydral 100 tid, - continue clonidine 0.2 mg patch qweek - continue Coreg 12.5 mg bid, - continue amlod 10mg, - continue losartan 100 mg, ?? #Normocytic Anemia - last Hb 7.8 - Iron studies ordered this hospitalization: - Iron 77 - TSat 31% - TIBC 248 - Ferritin 180 - c/w Retacrit 8000U weekly DC planning: Pt follows Dr. Reyes in [place], family wants pt to be in [facility]. ?? Patient was seen and discussed with attending physician, Dr. Cintron. Loly Aleman MD Nephrology Fellow #[phone] 09/05/2022 11:21 AM NICIAN HELPER INSTRUMENT Associated attestation - Peggy Cintron MD - 09/05/2022 7:22 PM TECHNICIAN HELPER INSTRUMENT Attending Addendum I have seen and examined the patient with the renal team today. I agree with the findings and plan of care as documented by the fellow. In addition I note: 81 yo female with advanced chronic kidney disease due to hypertensive nephrosclerosis per kidney biopsy (based on Dr. Reyes's note) and other medical problems as per consult note, was transferred from OSH for further management of ICH. The patient is receiving intermittent HD (TTS) and tolerated 2.6L UF yesterday. Plan next hemodialysis treatment for Tuesday. If BP remains elevated, suggest advancing clonidine dose to 0.3 mg patch. Please see fellow's note for further details. * Jero Orozco MD - 09/05/2022 10:30 AM CST GENERAL INTERNAL MEDICINE Progress note 09/05/2022 10:30 AM Admit Date: 08/15/2022 Subjective: Ms. Rea reports that she continues to feel well today. She does not endorse any new concerns at this time; no fevers, chills, angina, or dyspnea with her current level of supplemental oxygen. No acute events reported overnight per nursing staff Medications: MAR reviewed Physical Examination: BP 144/57 Pulse 91 Temp 97.9 ??F (36.6 ??C) Resp 24 Ht 1.727 m (5' 7.99 ) Wt 72.5 kg (159lb 12.8 oz) SpO2 95% GEN: NAD, resting comfortably in bed. RESP: Clear to auscultation bilaterally. No wheezing or crackles noted. CARDIAC: Regular rate and rhythm. No murmurs, rubs, or gallops noted. GI: Abdomen soft, non tender, and non-distended. Bowel sounds noted. 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 She was transferred to [facility] on August 15 and was initially managed in the neuro ICU. Unfortunately, her hospitalization was complicated by acute hypoxic respiratory failure and acute renal failure which required initiation of intermittent hemodialysis. She clinically improved and was felt roxi appropriate for transfer to the general medical floor in the evening August 27. Plan: # Pontine intraparenchymal hemorrhage - She was evaluated by Neurology and Neurosurgery. No plan for surgical intervention. Continue medical management. - Per neurology recommendations systolic blood pressure goal is less than 180 mmHg. # Hypertensive emergency - We will continue amlodipine, losartan, carvedilol, hydralazine, and clonidine. - We will provide IV hydralazine or labetalol as needed for systolic blood pressure greater than 180 mmHg. # Acute hypoxic respiratory failure # Pulmonary edema, likely secondary to acute renal failure # Aspiration pneumonia - We will continue to provide supplemental oxygen as needed - We will follow for improvement in her oxygenation as her volume is better managed through hemodialysis. - Of note she was previously treated with a five-day course of piperacillin/tazobactam for presumedaspiration pneumonia # Acute renal failure # Chronic kidney disease stage 5 - She required initiation of hemodialysis this during this hospitalization - Nephrology following, appreciate their assistance in helping her plan of care # Anemia - Suspect acute on chronic due to hospitalization and hx of CKD. - We will follow and provide RBCs as needed # Pharyngeal dysphagia - We appreciate the assistance of speech therapy and developing her plan of care - She was advanced to a patient diet earlier this hospitalization. DVT PPx: Heparin TID eJro Orozco MD General Internal Medicine 09/05/2022 10:30 AM NICIAN HELPER INSTRUMENT * Valeriano Dos Santos RN - 09/05/2022 12:21 AM CDT Problem: Fall Risk Goal: Fall risk and fall related injury risk are minimized (interventions related to the fall risk can be found in the flowsheet documentation) Outcome: Progressing Problem: Neurological Deficit Goal: Neurological status is stable or improving Outcome: Progressing Problem: Hemodynamic Status/Cardiac Output Goal: Patient has stable vital signs and fluid balance Outcome: Progressing Problem: Oxygenation/Respiratory Function Goal: Respiratory rate/effort will be within specified limits Outcome: Progressing Problem: Mobility Goal: Patient's mobility/activity will be maintained as optimum level for age, diagnosis and physical limitations Outcome: Progressing Goal: Continuum of care needs are further met through referral to outpatient services when appropriate. Outcome: Progressing Goal: Patient reports the ability to perform Activities of Daily Living. Outcome: Progressing Problem: Communication Impairment/Dysarthria Goal: Ability to express needs and understand communication Outcome: Progressing Problem: Nutrition Goal: Nutritional status is improving Outcome: Progressing Problem: Aspiration Precautions Goal: Patient's risk of aspiration is minimized Outcome: Progressing Problem: Knowledge Deficit,Education,Discharge Plan Goal: The patient/family will understand cerebrovascular disease and its symptoms, treatment and management Outcome: Progressing Problem: Swallowing Goal: LTG - Patient will demonstrate safe swallowing Intervention/techniques Outcome: Progressing Goal: LTG - Patient will tolerate the least restrictive diet consistency to allow for safe consumption of daily meals Outcome: Progressing Goal: STG - Patient will complete swallowing exercises Outcome: Progressing Goal: STG - Patient will participate in instrumental assessment of swallowing as appropriate Outcome: Progressing Problem: Mobility Goal: STG - Patient will ambulate Outcome: Progressing Problem: Balance Goal: LTG - Patient will maintain balance to allow for safe mobility Outcome: Progressing Problem: Pain/Discomfort Goal: Patient exhibits reduced pain/discomfort as evidenced by pain scores Outcome: Progressing Goal: Patient uses pharmacological and non-pharmacological pain management strategies. Outcome: Progressing Goal: Patient verbalizes acceptable level of pain relief and ability to engage in desired activity. Outcome: Progressing Problem: Oral Intake: Inadequate oral intake Goal: Total intake will meet estimated nutrient needs Outcome: Progressing Problem: Fluid and Electrolyte Imbalance Goal: Fluid and electrolyte balance are achieved/maintained Outcome: Progressing Problem: Skin Integrity Goal: Skin integrity is maintained or improved Outcome: Progressing * Maryana Strong RN - 09/04/2022 12:11 PM CDT Dialysis completed. Tolerated well Problem: Fluid and Electrolyte Imbalance Goal: Fluid and electrolyte balance are achieved/maintained Outcome: Progressing * Jero Orozco MD - 09/04/2022 11:21 AM CDT GENERAL INTERNAL MEDICINE Progress note 09/04/2022 11:21 AM Admit Date: 08/15/2022 Subjective: Ms. Rea reports that she generally feels well today. She does not endorse any new concerns at this time; no fevers, chills, angina, or dyspnea with her current level of supplemental oxygen. No acute events reported overnight per nursing staff Medications: MAR reviewed Physical Examination: BP 129/52 Pulse 80 Temp 98.2 ??F (36.8 ??C) (Oral) Resp 18 Ht 1.727 m (5' 7.99 ) Wt 72.5 kg (159 lb 12.8 oz) SpO2 93% GEN: NAD, resting comfortably in bed on the dialysis unit. RESP: Clear to auscultation bilaterally. No wheezing or crackles noted. CARDIAC: Regular rate and rhythm. No murmurs, rubs, or gallops noted. GI: Abdomen soft, non tender, and non-distended. Bowel sounds noted. 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 She was transferred to [facility] on August 15 and was initially managed in the neuro ICU. Unfortunately, her hospitalization was complicated by acute hypoxic respiratory failure and acute renal failure which required initiation of intermittent hemodialysis. She clinically improved and was felt roxi appropriate for transfer to the general medical floor in the evening August 27. Plan: # Pontine intraparenchymal hemorrhage - She was evaluated by Neurology and Neurosurgery. No plan for surgical intervention. Continue medical management. - Per neurology recommendations systolic blood pressure goal is less than 180 mmHg. # Hypertensive emergency - We will continue amlodipine, losartan, carvedilol, hydralazine, and clonidine. - We will provide IV hydralazine or labetalol as needed for systolic blood pressure greater than 180 mmHg. # Acute hypoxic respiratory failure # Pulmonary edema, likely secondary to acute renal failure # Aspiration pneumonia - We will continue to provide supplemental oxygen as needed - We will follow for improvement in her oxygenation as her volume is better managed through hemodialysis. - Of note she was previously treated with a five-day course of piperacillin/tazobactam for presumedaspiration pneumonia # Acute renal failure # Chronic kidney disease stage 5 - She required initiation of hemodialysis this during this hospitalization - Nephrology following, appreciate their assistance in helping her plan of care # Anemia - Suspect acute on chronic due to hospitalization and hx of CKD. - We will follow and provide RBCs as needed # Pharyngeal dysphagia - We appreciate the assistance of speech therapy and developing her plan of care - She was advanced to a patient diet earlier this hospitalization. DVT PPx: Heparin TID Jero Orozco MD General Internal Medicine 09/04/2022 11:21 AM * Maryana Strong RN - 09/04/2022 7:31 AM CDT Diagnosis (TOÑA/CRF):crf Non-Renal Diagnosis: respiratory failure Isolation No active isolations Does patient have signs or symptoms of respiratory infection(fever, cough, shortness of breath):no Allergies Allergen Reactions ??? Ramipril Other Other reaction(s): Other (See Comments) Kidney Damage Kidney Damage Code Status:full Orientation Status:x4 On telemetry/Rhythm:no Oxygen:3L/nc Given any medications:see mar Need for pain medications:no Blood pressure issues:no On any drips:no Is patient diabetic:no Any labs to draw:no Any other procedures today:no Any concerns about this patient :no Any medications to be given with dialysis:no * Valeriano Dos Santos RN - 09/03/2022 11:57 PM CDT Problem: Fall Risk Goal: Fall risk and fall related injury risk are minimized (interventions related to the fall risk can be found in the flowsheet documentation) Outcome: Progressing Problem: Neurological Deficit Goal: Neurological status is stable or improving Outcome: Progressing Problem: Hemodynamic Status/Cardiac Output Goal: Patient has stable vital signs and fluid balance Outcome: Progressing Problem: Oxygenation/Respiratory Function Goal: Respiratory rate/effort will be within specified limits Outcome: Progressing Problem: Mobility Goal: Patient's mobility/activity will be maintained as optimum level for age, diagnosis and physical limitations Outcome: Progressing Goal: Continuum of care needs are further met through referral to outpatient services when appropriate. Outcome: Progressing Goal: Patient reports the ability to perform Activities of Daily Living. Outcome: Progressing Problem: Communication Impairment/Dysarthria Goal: Ability to express needs and understand communication Outcome: Progressing Problem: Nutrition Goal: Nutritional status is improving Outcome: Progressing Problem: Aspiration Precautions Goal: Patient's risk of aspiration is minimized Outcome: Progressing Problem: Glycemic Control Goal: Clinical indication of glycemia balance is achieved Outcome: Progressing Problem: Knowledge Deficit,Education,Discharge Plan Goal: The patient/family will understand cerebrovascular disease and its symptoms, treatment and management Outcome: Progressing Problem: Swallowing Goal: LTG - Patient will demonstrate safe swallowing Intervention/techniques Outcome: Progressing Goal: LTG - Patient will tolerate the least restrictive diet consistency to allow for safe consumption of daily meals Outcome: Progressing Goal: STG - Patient will complete swallowing exercises Outcome: Progressing Goal: STG - Patient will participate in instrumental assessment of swallowing as appropriate Outcome: Progressing Problem: Mobility Goal: STG - Patient will ambulate Outcome: Progressing Problem: Pain/Discomfort Goal: Patient exhibits reduced pain/discomfort as evidenced by pain scores Outcome: Progressing Goal: Patient uses pharmacological and non-pharmacological pain management strategies. Outcome: Progressing Goal: Patient verbalizes acceptable level of pain relief and ability to engage in desired activity. Outcome: Progressing Problem: Fluid and Electrolyte Imbalance Goal: Fluid and electrolyte balance are achieved/maintained Outcome: Progressing Problem: Infection Goal: Signs and symptoms of infections are decreased or avoided Outcome: Progressing Problem: Skin Integrity Goal: Skin integrity is maintained or improved Outcome: Progressing * Concepción Klein - 09/03/2022 3:52 PM CDT Tuesday Summary Note Discharge Level of Care: ARU Discharge Destination:[facility] Insurance Auth:P2P is pending. Peer 2 peer call information is [phone] Reference #[id number]. Anticipated Mode of Transportation:Ambulance Contacts (Name, relationship, phone #): Pt's daughters, Ms. Kumar ([phone]) Anticipated DC Date:TBD Comments:Insurance was submitted prior to the pt coming to [facility], and the insurance was denied on 08/24 with a letter. confirmed that the pt is on day for an opportunity to submit a peer 2 peer. Concepción Klein Phone: [phone] 09/03/2022 * Vanessa Blakely, [facility] - 09/03/2022 3:23 PM CDT [facility] Physical Medicine and Rehabilitation Swallow Treatment Patient: Kirsty Rea Med Record Number: [id number] Date of : 1940 Age: [age] year old PPE: PPE worn by staff: mask - N95;gloves PPE worn by patient: gown - patient, clean Impressions: Pt observed while eating/drinking items from her lunch tray with cough noted x1 with thin liquid while utilizing a chin tuck posture, however suspect bolus size was too large. Continue to recommend Pt remain on her current diet and utilize recommended swallowing strategies to reduce her aspiration risk. [facility] will continue to monitor for diet tolerance and potential diet upgrade if appropriate. Recommendations: Diet Liquids Recommendation: Thin/ Thin (0) Diet Solids Recommendation: Mechanically Altered Dys 2/Minced & Moist (5) Recommended Form of Meds: Whole;With liquid Compensatory Swallowing Strategies: 90 Degrees elevation for all oral intake;Alternate solids and liquids;Chin tuck;Eat/Feed slowly;Small bites/sips;No straws Recommended Tests/Consults: Recommendations: Dysphagia Treatment Discharge Recommendations: Patient will benefit from intense 3 hour per day multidisciplinary inpatient therapies Speech therapy is recommended to improve swallow function. SUBJECTIVE: Patient Goals: What's next? Pain Assessment: Pain Rating Score #: 0 Follow-up for pain: No follow-up for pain indicated and patient agreed to proceed with treatment OBJECTIVE: Level of Consciousness: alert Positioning: Upright in bed Respiratory Status: nasal cannula: 3lpm Swallow Trials: Thin Liquid: Presentation: Cup-Self Fed Oral: Within Functional Limits Pharyngeal: Delayed Swallow;Decreased Laryngeal Elevation, cough noted x1 with chin tuck but suspect bolus size was too large Puree: Presentation: Self fed with spoon Oral: Within Functional Limits Pharyngeal: Decreased laryngeal elevation Assessment: Risk For Aspiration: Mild Primary Diagnostic Impression - Oral: Mild Primary Diagnostic Impression - Pharyngeal: Moderate Treatment/Education/Interventions: While performing [facility], Patient was instructed in: results of MBS/FEES, goals of treatment and swallowing strategies/aspiration precautions. Patient demonstrated Good understanding of instructions given. INFORMED CONSENT TO TREATMENT: Plan of care including recommended therapy, goals and frequency, discussed with patient who understands and agrees to proceed. Short Term Goals Patient will tolerate recommended food and liquid consistencies without clinical signs of aspiration., Patient will understand clinical signs of aspiration and aspiration precautions. Non Destructive Testing Scientist Goal (s): Patient to be independent/baseline with functional mobility and self care and be able to safely discharge to prior level of care. 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 Her hosp stay c/b acute hypoxic respiratory failure and acute renal failure which required initiation of intermittent hemodialysis.Initially she was on 15 L/min and now on 5 L/min.Also suspicion of Aspn PNA. Subjective: Interval history: - NAEON, - tolerated HD well yesterday wit UF of 2L - afebrile, vitals are acceptable, on 3 L O2 Objective: Patient Vitals for the past 6 hrs: Temp Resp BP BP Method 09/03/22 1140 98.2 ??F (36.8 ??C) 20 148/68 Automatic Intake/Output Summary (Last 24 hours) at 09/03/2022 1413 Last data filed at 09/03/2022 0800 Gross per 24 hour Intake 350 ml Output 0 ml Net 350 ml Physical Exam General: comfortable HENT: NC/AT, thrush noted Eyes: Anicteric. Non-injected. Chest: Reduced breath sounds RLL. Permcath at right chest. Cardiovascular: RRR. No murmurs, rubs, or gallops Abdomen: Soft. NT/ND. Normal BS+. : Quijano catheter in place Extremities: No signs of clubbing, cyanosis, or edema. Skin: Warm. Dry. Neurological: AO x 2-3;Moves all extremities spontaneously Psych: Appropriate mood and affect Medications SCHEDULED MEDICATIONS: And 0.9% NaCl injection 3 mL, Intracatheter, q8h amLODIPine (Norvasc) tablet 10 mg, Oral, AT BEDTIME carvedilol (Coreg) tablet 12.5 mg, Oral, BID WC cloNIDine (Catapres) patch 0.2 mg, Transdermal, q7 days cloNIDine patch placement confirmation, Transdermal, BID heparin injection 5,000 Units, Subcutaneous, TID hydrALAZINE (Apresoline) tablet 100 mg, Oral, TID losartan (Cozaar) tablet 100 mg, Oral, QDAY polyethylene glycol 3350 (Miralax) packet 17 g, Oral, QDAY [] cloNIDine (Catapres) tablet 0.3 mg, Oral, TID ?? [START ON 09/07/2022] epoetin deyanira-EPBX (Retacrit) injection 8,000 Units, Intravenous, q7 days ?? CONTINUOUS MEDICATIONS: PRN MEDICATIONS: 0.9% NaCl injection 1-10 mL, Intracatheter, PRN acetaminophen (Tylenol) tablet 500 mg, Oral, q4h PRN albuterol HFA (Proventil; Ventolin; Proair) 108 (90 Base) MCG/ACT inhaler 2 puff, Inhalation, q6h PRN albuterol-ipratropium (Duo-Neb) nebulizer solution 3 mL, Inhalation, q4h PRN hydrALAZINE (Apresoline) injection 15 mg, Intravenous, q4h PRN labetalol (Normodyne; Trandate) injection 20 mg, Intravenous, q2h PRN ?? senna (Senokot) tablet 8.6 mg, Oral, QDAY PRN Data Review Recent Labs Component Name 09/03/22 0649 09/01/22 0706 08/30/22 0420 WBC 8.5 8.8 9.1 HGB 7.8* 7.4* 7.2* HCT 24.0* 23.3* 22.6* PLTCOUNT 214 205 200 Recent Labs Component Name 09/03/22 0649 08/15/22 0339 03/09/22 1312 SODIUM - - 140 POTASSIUM 4.8* - 3.9 CHLORIDE - - 109 CO2 23 - 21 BUN 45* - 65* CREATININE 3.18* - 2.74* CALCIUM 9.5 - 8.7 ALBUMIN - - 3.6 ALT - - 12 AST - - 14 GLUCOSE 117* - 99 - = values in this interval not displayed. 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 Reyes) as outpatient; recent biopsy due to nephrotic range proteinuria that noted hypertensive nephrosclerosis - R IJ CVC placed 08/23,replaced by permcath on 08/25 - Pt was since then dialyzed regularly with ~ 8 L UF, Oxygen requirement improved from 15 L/min to 3 L/min - Renal function: cre 3.15 BUN 45 - Electrolytes: K 4.8 - Acid Base: CO2 23 - UOP 500 ml yesterday - No HD today. Next dialysis tomorrow 09/04/22 - D/c planning: TTS [facility], Dr Reyes ?? #Hypertension - continue Hydral 100 tid, - continue clonidine 0.2 mg patch qweek - continue Coreg 12.5 mg bid, - continue amlod 10mg, - continue losartan 100 mg, ?? #Normocytic Anemia - Yesterday's labs, Hb 7.8 - Iron studies ordered this hospitalization: - Iron 77 - TSat 31% - TIBC 248 - Ferritin 180 - c/w Retacrit 8000U weekly DC planning: Pt follows Dr. Reyes in [place], family wants pt to be in [facility]. ?? Patient was seen and discussed with attending physician, Dr. Cintron. Loly Aleman MD Nephrology Fellow #[phone] 09/03/2022 2:13 PM Associated attestation - Peggy Cintron MD - 09/03/2022 5:37 PM CDT Attending Addendum I have seen and examined the patient with the renal team today. I agree with the findings and plan of care as documented by the fellow. In addition I note: 81 yo female with advanced chronic kidney disease due to hypertensive nephrosclerosis per kidney biopsy (based on Dr. Reyes's note) and other medical problems as per consult note, was transferred from OSH for further management of ICH. The patient is receiving intermittent HD and tolerated 2L UF yesterday. Plan next hemodialysis treatment for tomorrow. Recommend to add daily renal vitamin. Please see fellow's note for further details. * Thi Quan, PT - 09/03/2022 2:10 PM CDT [facility] Physical Medicine and Rehabilitation Physical Therapy Progress Note Patient: Kirsty Rea [facility] Record Number: [id number] Date of : 1940 Age: [age] year old PPE worn by staff: gloves;mask - procedural Tech: NO Discharge Recommendation: Patient will benefit from intense 3 hour per day multidisciplinary inpatient therapies due to PT WITH DECREASED FUNCTIONAL MOBILITY. SUBJECTIVE: Subjective: AGREEABLE TO WORK WITH THERAPY Pain Assessment: Pain Rating Score #: 0 Follow-up for pain: No follow-up for pain indicated and patient agreed to proceed with treatment PRECAUTIONS: Weight Bearing Status: (WBAT) Activity Level: Activity as Tolerated OBJECTIVE: At start of therapy session, patient found in bed and with bed alarm on General Appearance: LYING IN BED. LDAs: IV's: Peripheral line, Dialysis Site and Oxygen Nasal Cannula Vitals: (*Assess the 3 levels of oxygen saturations both for room air and 02 unless rest on room air is 88% or less). Rest BP: HR: Sp02 Sp02 90-91% Room Air L O2 2 Ex/Gait/Activity Without 02 BP: HR: Sp02 Room Air Ex/Gait/Activity With 02 BP: HR: Sp02 88-89% L O2 2 Post Activity BP: HR: Sp02 Sp02 92% L O2 Room Air 2 Observations: PT WITH SOME C/O SOB WITH ACTIVITY. RN NOTIFIED Mental Status/Cognition: Level of Consciousness-Adult: Alert (CHINIK) Orientation Level: Oriented X4 Cognition: Follows one step commands Following Commands: Follows one step commands consistently Mobility: A gait belt and non-slip socks were used for all out of bed activity this date. Bed Mobility: Rolling: Minimal Assistance to Right;Minimum Assistance to Left Supine to Sit: Moderate Assistance with HOB in semi-fowlers position Sit to Supine: Moderate Assistance;X 2 Transfers: Sit to Stand: Minimal Assistance Stand to Sit: Minimal Assistance Gait: Weight Bearing Status: (WBAT) Distance Ambulated: (PT TOOK SEVERAL SIDE STEPS TO HOB) Ambulation: Assistive Device: Gait Belt;Walker-2 Wheeled Ambulation: Level of Assistance: Minimum Assistance Balance: Balance Scales/Tests Used: Sitting: Static/Dynamic;Standing: Static/Dynamic Sitting - Static: Fair + Sitting - Dynamic: Fair Standing - Static: (PT HELD TO WALKER WITH STANDING) Standing - Dynamic: Not tested ACTIVITY TOLERANCE: Patient's activity tolerance: fair. TREATMENT/INTERVENTIONS: ROM BILAT LE'S, bed mobility training, transfer training, gait training and monitoring of vitals Modified [place]: Current Modified [place] Score: 4 EDUCATION: While performing PT, Patient was instructed in:functional mobility training Presented to patient who demonstrates Good understanding of instructions given. ASSESSMENT: Patient would benefit from additional Physical Therapy sessions to achieve the following functionalgoals to enhance independence. Short Term Goals: Goal Formation With patient Patient will perform bed mobility??with minimal assist Patient will transfer sit to/from stand??with minimal assist Patient will transfer bed to/from chair??with minimal assist Patient will ambulate??50??feet with minimal assist??and appropriate AD ?? Non Destructive Testing Scientist Goal(s): Patient to discharge to appropriate next level of inpatient care. INFORMED CONSENT TO TREATMENT: Plan of care including recommended therapy, goals and frequency, discussed with patient who understands and agrees to proceed. Equipment Issued: none Plan: Patient continues to benefit from skilled therapy services. If patient is discharged from the facility, this note serves as a discharge summary if further physical therapy visits did not occur. Refer to filed flowsheet for further details. Following therapy session, patient left in bed, with bed alarm on , with call light within reach. * Catarina Bennett RN - 09/03/2022 11:21 AM CDT Case Management Progress Note Anticipated level of care at discharge: Home, Acute Rehab Facility, Fpc - Skilled Facility Discharge Plan: Discharge will depend on needs and recommendations. SW is following for placement needs at this time. Peer to Peer to Peer to be completed by medical team. Basic Needs Assessment (BNA) Score: 6 Anticipated Discharge Date: Anticipated Discharge Date: (TBD) Patient/Family provided with list of resources? Unknown Preferred Provider / High Quality Network List given?: Unknown Reason for provider choice: Pt. choice - Pt. choice Transportation at Discharge: TBD by needs and recommendations Follow Up Appointment: TBD bu needs at discharge. Transportation to MD: TBD Equipment at Home: Equipment at Home: Cane-Straight List DME patient requires but does not have: equipment needs will depend on needs and recommendations at discharge. DME Provider: TBD Hunger Screening: Medication affordability concerns: No Auth Number (if required) NH: DME: Medications: Transportation: Name: Catarina Bennett RN * Fan Carter RN - 09/03/2022 9:50 AM CDT Images from the original note were not included. [facility] Wound/ Ostomy Note Height: Ht Readings from Last 1 Encounters: 08/23/22 : 1.727 m (5' 7.99 ) Weight: Wt Readings from Last 3 Encounters: 09/02/22 : 72.5 kg (159 lb 12.8 oz) 03/08/22 : 74.3 kg (163 lb 12.8 oz) 12/28/21 : 78.2 kg (172 lb 6.4 oz) BMI: Body mass index is 24.3 kg/m??. BSA: Body surface area is 1.86 meters squared. Date of Admission: 08/15/2022 Reason for consult: Wound/ostomy Eval Consult from nursing (Haley) for non blanchable coccyx . Past Medical History: Diagnosis Date ??? CKD (chronic kidney disease) stage 3, GFR 30-59 ml/min ([facility]) proteinuria; Oven Dauber = Dr. Reyes ??? HTN (hypertension), benign ??? 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 Morphea ??? Osteopenia Assessments and Recommendations: Assessment: Patient ws seen and coccyx was assessed - there is an area 2 x 3 x 0 cm with skin changes and erythema to burgundy discoloration, likely with pressure etiology. Interventions: routine nursing care Recommendations: - Large sacral Mepilex Dressing, change q 3 days and prn when soiled - Ensure the Protevo pump is on and functioning to Daxa bed, AP setting. - Pillows and wedges for repositioning, draw sheet - Side to side turning/repositioning q 2-4 hrs - HOB at 30 degrees or below - Off load heels with heel boots if patient cannot move legs spontaneously - Moisture/incontinence protection - dry skin well, apply skin protectant - All external devices (braces/collars/etc) - follow policy guidelines for skin assessment and management Plan of care discussed with: nurse Pleitez. Re consult with any new needs. * Pricilla Ryan RN - 09/03/2022 9:36 AM CDT Problem: Fall Risk Goal: Fall risk and fall related injury risk are minimized (interventions related to the fall risk can be found in the flowsheet documentation) Outcome: Progressing Problem: Neurological Deficit Goal: Neurological status is stable or improving Outcome: Progressing Problem: Hemodynamic Status/Cardiac Output Goal: Patient has stable vital signs and fluid balance Outcome: Progressing Problem: Oxygenation/Respiratory Function Goal: Respiratory rate/effort will be within specified limits Outcome: Progressing Problem: Mobility Goal: Patient's mobility/activity will be maintained as optimum level for age, diagnosis and physical limitations Outcome: Progressing Goal: Continuum of care needs are further met through referral to outpatient services when appropriate. Outcome: Progressing Goal: Patient reports the ability to perform Activities of Daily Living. Outcome: Progressing Problem: Communication Impairment/Dysarthria Goal: Ability to express needs and understand communication Outcome: Progressing Problem: Nutrition Goal: Nutritional status is improving Outcome: Progressing Problem: Aspiration Precautions Goal: Patient's risk of aspiration is minimized Outcome: Progressing Problem: Glycemic Control Goal: Clinical indication of glycemia balance is achieved Outcome: Progressing Problem: Knowledge Deficit,Education,Discharge Plan Goal: The patient/family will understand cerebrovascular disease and its symptoms, treatment and management Outcome: Progressing Problem: Mobility Goal: STG - Patient will ambulate Outcome: Progressing Problem: Pain/Discomfort Goal: Patient exhibits reduced pain/discomfort as evidenced by pain scores Outcome: Progressing Goal: Patient uses pharmacological and non-pharmacological pain management strategies. Outcome: Progressing Goal: Patient verbalizes acceptable level of pain relief and ability to engage in desired activity. Outcome: Progressing Problem: Ineffective Airway Clearance Goal: Patent airway Outcome: Progressing Problem: Swallowing Goal: LTG - Patient will demonstrate safe swallowing Intervention/techniques Outcome: Progressing Goal: LTG - Patient will tolerate the least restrictive diet consistency to allow for safe consumption of daily meals Outcome: Progressing Goal: STG - Patient will complete swallowing exercises Outcome: Progressing Goal: STG - Patient will participate in instrumental assessment of swallowing as appropriate Outcome: Progressing Problem: Oral Intake: Inadequate oral intake Goal: Total intake will meet estimated nutrient needs Outcome: Progressing Problem: Fluid and Electrolyte Imbalance Goal: Fluid and electrolyte balance are achieved/maintained Outcome: Progressing Problem: Infection Goal: Signs and symptoms of infections are decreased or avoided Outcome: Progressing Problem: Skin Integrity Goal: Skin integrity is maintained or improved Outcome: Progressing Problem: Balance Goal: LTG - Patient will maintain balance to allow for safe mobility Outcome: Progressing * Almaz Patel MD - 09/03/2022 9:06 AM CDT Hospital Medicine Progress Note Kirsty Rea is a 81 year old female with a history of hypertension, CKD V not on permanent dialysis who presented with pontine intraparenchymal hemorrhage. She was in the neuro ICU where she developed acute hypoxic respiratory failure thought due to aspiration PNA plus volume overload but is nowon the floor and oxygen needs are improving. Now on HD. Subjective: She says she feels great today. No chest pain, no cough, no sore throat, no runny nose, no abdominal pain. Says she had loose stool one time yesterday but none since then. No pain in extremities. Objective: BP 148/68 Pulse 88 Temp 98.2 ??F (36.8 ??C) (Axillary) Resp 20 Ht 1.727 m (5' 7.99 ) Wt 72.5 kg (159 lb 12.8 oz) SpO2 96% Physical Exam Alert, no distress Heart rrr Lungs with crackles in bilateral bases, poor airflow in right lung base Abdomen soft and NT, normal bowel sounds No pitting edema Skin is clean and free of breakdown or signs of cellulitis or gout MEDICATIONS FOR CURRENT ENCOUNTER: SCHEDULED MEDICATIONS: And 0.9% NaCl injection 3 mL, Intracatheter, q8h amLODIPine (Norvasc) tablet 10 mg, Oral, AT BEDTIME carvedilol (Coreg) tablet 12.5 mg, Oral, BID WC cloNIDine (Catapres) patch 0.2 mg, Transdermal, q7 days cloNIDine (Catapres) tablet 0.3 mg, Oral, TID cloNIDine patch placement confirmation, Transdermal, BID heparin injection 5,000 Units, Subcutaneous, TID hydrALAZINE (Apresoline) tablet 100 mg, Oral, TID losartan (Cozaar) tablet 100 mg, Oral, QDAY polyethylene glycol 3350 (Miralax) packet 17 g, Oral, QDAY [START ON 09/07/2022] epoetin deyanira-EPBX (Retacrit) injection 8,000 Units, Intravenous, q7 days CONTINUOUS MEDICATIONS: PRN MEDICATIONS: 0.9% NaCl injection 1-10 mL, Intracatheter, PRN acetaminophen (Tylenol) tablet 500 mg, Oral, q4h PRN albuterol HFA (Proventil; Ventolin; Proair) 108 (90 Base) MCG/ACT inhaler 2 puff, Inhalation, q6h PRN albuterol-ipratropium (Duo-Neb) nebulizer solution 3 mL, Inhalation, q4h PRN hydrALAZINE (Apresoline) injection 15 mg, Intravenous, q4h PRN labetalol (Normodyne; Trandate) injection 20 mg, Intravenous, q2h PRN senna (Senokot) tablet 8.6 mg, Oral, QDAY PRN Rele[facility] Recent Labs Component Name 09/03/22 0649 09/01/22 0706 08/30/22 0420 WBC 8.5 8.8 9.1 RBC 2.72* 2.58* 2.51* HGB 7.8* 7.4* 7.2* HCT 24.0* 23.3* 22.6* MCV 88.2 90.3 90.0 PLTCOUNT 214 205 200 Recent Labs Component Name 09/03/22 0649 09/01/22 0706 08/31/22 0903 08/15/22 0339 03/09/22 1312 SODIUM - - - - 140 POTASSIUM 4.8* 4.2 4.0 - 3.9 CHLORIDE - - - - 109 CO2 23 27 26 - 21 GLUCOSE 117* 146* 135* - 99 BUN 45* 72* 45* - 65* CREATININE 3.18* 3.83* 2.66* - 2.74* ALBUMIN - - - - 3.6 CALCIUM 9.5 9.6 9.3 - 8.7 AST - - - - 14 ALT - - - - 12 - = values in this interval not displayed. Relevant imaging reviewed in EPIC CXR with improving congestion Assessment/Plan: Fever: - unclear etiology, error? - CXR largely stable compared to prior, will await final read though - hold on blood cultures unless recurrent fever - if bladder scan with 400cc of urine or more will straight cath for sample Pontine intraparenchymal hemorrhage Hypertensive emergency: - NSGY and Neurology following - medical management, goal SBP <180 - continue amlodipine, losartan, labetalol, hydralazine and clonidine scheduled; suspect will see some more improvement with HD and volume removal - IV hydralazine or labetalol PRN for SBP >180 - will ask Nephro for assistance in consolidating BP regimen now she is closer to discharge: on 09/02 added 0.2mg clonidine patch, now tapered off oral clonidine - on 09/03 converting labetalol TID to coreg 12.5mg BID and plan to increase to 25mg BID if needed if HR room - if BP still not controlled after the above two changes consider changing amlodipine 10mg to nifedipine 30mg xL Acute hypoxic respiratory failure due to pulmonary edema and aspiration pneumonia: - HD for volume - finished pip/tazo for aspiration PNA - nocturnal desaturation study done, she needs outpatient sleep study and to continue supplemental O2 at night - repeat CT per Pulm shows RLL and RML atelectasis and partial atelectasis left lung; continue IS, PT/OT, up to chair TID, aerobika CKD V with acute injury now needing HD: - temp cath in place - Nephrology following for HD Anemia: - hgb stable ?7 - EPO per Nephro - no signs of bleeding - iron panel good this admission, no need for iron - b12 and folate are ok Pharyngeal dysphagia: - passed MBS on dysphagia diet Lines: PIV, temp dialysis line Diet: Dysphagia 2 diet with thin liquids, aspiration precautions Abx end date: NA Consults: Neuro, NSGY, Nephro DVT prophylaxis: Heparin Code status: Full Disposition: pending placement, working on insurance appeal; for some reason she was denied acute rehab while still in the ICU on 08/24; I called for peer to peer set up on 09/02 and have NOT receivedany call backs Almaz Patel MD [facility] 09/03/2022 * Concepción Murillo RN - 09/03/2022 5:37 AM CDT Patient A&O x4. VSS, on 3L NC. Patient has denied pain throughout the shift. Will continue to turn patient per patient preference. No acute events have occurred during the shift. Will continue to monitor patient and progress toward all goals throughout the shift. Problem: Fall Risk Goal: Fall risk and fall related injury risk are minimized (interventions related to the fall risk can be found in the flowsheet documentation) Outcome: Progressing Problem: Neurological Deficit Goal: Neurological status is stable or improving Outcome: Progressing Problem: Hemodynamic Status/Cardiac Output Goal: Patient has stable vital signs and fluid balance Outcome: Progressing Problem: Oxygenation/Respiratory Function Goal: Respiratory rate/effort will be within specified limits Outcome: Progressing Problem: Mobility Goal: Patient's mobility/activity will be maintained as optimum level for age, diagnosis and physical limitations Outcome: Progressing Goal: Continuum of care needs are further met through referral to outpatient services when appropriate. Outcome: Progressing Goal: Patient reports the ability to perform Activities of Daily Living. Outcome: Progressing Problem: Communication Impairment/Dysarthria Goal: Ability to express needs and understand communication Outcome: Progressing Problem: Nutrition Goal: Nutritional status is improving Outcome: Progressing Problem: Aspiration Precautions Goal: Patient's risk of aspiration is minimized Outcome: Progressing Problem: Glycemic Control Goal: Clinical indication of glycemia balance is achieved Outcome: Progressing Problem: Knowledge Deficit,Education,Discharge Plan Goal: The patient/family will understand cerebrovascular disease and its symptoms, treatment and management Outcome: Progressing Problem: Mobility Goal: STG - Patient will ambulate Outcome: Progressing Problem: Pain/Discomfort Goal: Patient exhibits reduced pain/discomfort as evidenced by pain scores Outcome: Progressing Goal: Patient uses pharmacological and non-pharmacological pain management strategies. Outcome: Progressing Goal: Patient verbalizes acceptable level of pain relief and ability to engage in desired activity. Outcome: Progressing Problem: Ineffective Airway Clearance Goal: Patent airway Outcome: Progressing Problem: Swallowing Goal: LTG - Patient will demonstrate safe swallowing Intervention/techniques Outcome: Progressing Goal: LTG - Patient will tolerate the least restrictive diet consistency to allow for safe consumption of daily meals Outcome: Progressing Goal: STG - Patient will complete swallowing exercises Outcome: Progressing Goal: STG - Patient will participate in instrumental assessment of swallowing as appropriate Outcome: Progressing Problem: Oral Intake: Inadequate oral intake Goal: Total intake will meet estimated nutrient needs Outcome: Progressing Problem: Fluid and Electrolyte Imbalance Goal: Fluid and electrolyte balance are achieved/maintained Outcome: Progressing Problem: Infection Goal: Signs and symptoms of infections are decreased or avoided Outcome: Progressing Problem: Skin Integrity Goal: Skin integrity is maintained or improved Outcome: Progressing Problem: Balance Goal: LTG - Patient will maintain balance to allow for safe mobility Outcome: Progressing * Raji Bowen RCP - 09/02/2022 8:48 PM CDT Patient does not use or have cpap at home. Per not from Dr. Callaway, patient should get sleep study done for possible NAZANIN. * Lexi Holden RN - 09/02/2022 2:42 PM CDT Goal met 2L removed, VS WDL, blood returned to patient, HD catheter flushed with NS and locked withheparin. No medication administered with treatment. Problem: Hemodynamic Status/Cardiac Output Goal: Patient has stable vital signs and fluid balance 09/02/2022 1442 by Lexi Holden RN Outcome: Progressing 09/02/2022 1345 by Lexi Holden RN Outcome: Progressing Problem: Fluid and Electrolyte Imbalance Goal: Fluid and electrolyte balance are achieved/maintained 09/02/2022 1442 by Lexi Holden RN Outcome: Progressing 09/02/2022 1345 by Lexi Holden RN Outcome: Progressing Problem: Infection Goal: Signs and symptoms of infections are decreased or avoided 09/02/2022 1442 by Lexi Holden RN Outcome: Progressing 09/02/2022 1345 by Lexi Holden RN Outcome: Progressing * Vanessa Blakely SLP - 09/02/2022 2:35 PM CDT [facility] Physical Medicine and Rehabilitation Swallow Treatment Patient: Kirsty Rea [facility] Record Number: [id number] Date of : 1940 Age: [age] year old PPE: PPE worn by staff: mask - N95;gloves PPE worn by patient: gown - patient, clean Impressions: [facility]BOR[facility]STER followed up with Pt this afternoon to observe with trials from her lunch tray, no clinical signs of aspiration were noted during visit. HARBORMASTER reviewed results of yesterday's MBS with need for a chin tuck posture during all intake of thin liquids, Pt was able to recall and perform this strategy during visit. Recommend Pt continue her current Minced & Moist (5)/Mech Altered (DYS2) diet with thin liquids while following aspiration precautions listed below. Recommendations: Diet Liquids Recommendation: Thin/ Thin (0) Diet Solids Recommendation: Mechanically Altered Dys 2/Minced & Moist (5) Recommended Form of Meds: Whole;With liquid Compensatory Swallowing Strategies: 90 Degrees elevation for all oral intake;Alternate solids and liquids;Chin tuck;Eat/Feed slowly;Small bites/sips;No straws Recommended Tests/Consults: Recommendations: Dysphagia Treatment Discharge Recommendations: Patient will benefit from intense 3 hour per day multidisciplinary inpatient therapies Speech therapy is recommended to improve swallow function. SUBJECTIVE: Patient Goals: None stated Pain Assessment: Pain Rating Score #: 0 Follow-up for pain: No follow-up for pain indicated and patient agreed to proceed with treatment OBJECTIVE: Level of Consciousness: alert Positioning: Upright in bed Respiratory Status: nasal cannula: 3lpm Swallow Trials: Thin Liquid: Presentation: Cup-Self Fed Oral: Within Functional Limits Pharyngeal: Delayed Swallow;Decreased Laryngeal Elevation Pelion Thick Liquid: Presentation: Cup-Assisted;Spoon-Assisted Oral: Within Functional Limits Pharyngeal: Delayed Swallow;Decreased Laryngeal Elevation;Cough - Immediate Ground Texture: Presentation: Spoon-Assisted Oral: Increased Anterior to Posterior Transit Pharyngeal: Decreased Laryngeal Elevation Assessment: Risk For Aspiration: Mild Primary Diagnostic Impression - Oral: Mild Primary Diagnostic Impression - Pharyngeal: Moderate Treatment/Education/Interventions: While performing HARBORMASTER, Patient was instructed in: results of MBS/FEES, diet/liquid recommendations and swallowing strategies/aspiration precautions. Patient demonstrated Good understanding of instructions given. Nurse contacted regarding results of treatment session. INFORMED CONSENT TO TREATMENT: Plan of care including recommended therapy, goals and frequency, discussed with patient who understands and agrees to proceed. Short Term Goals Patient will tolerate recommended food and liquid consistencies without clinical signs of aspiration., Patient will follow recommended swallowing strategies. Non Destructive Testing Scientist Goal (s): Patient to be independent/baseline with functional mobility and self care and be able to safely discharge to prior level of care. 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 She was in the neuro ICU where she developed acute hypoxic respiratory failure thought due to aspiration PNA plus volume overload but is nowon the floor and oxygen needs are improving. Now on HD. Subjective: She is seen on dialysis, says she feels fine. No sob or cough, no cp. No abdominal pain. Objective: BP 143/62 Pulse 80 Temp 98.1 ??F (36.7 ??C) (Oral) Resp 16 Ht 1.727 m (5' 7.99 ) Wt 72.5 kg (159 lb 12.8 oz) SpO2 (!) 87% Physical Exam Alert, no distress Oral mucosa moist Heart rrr Lungs with bibasilar mild crackles R>L Abdomen soft and NT No pitting edema MEDICATIONS FOR CURRENT ENCOUNTER: SCHEDULED MEDICATIONS: And 0.9% NaCl injection 3 mL, Intracatheter, q8h amLODIPine (Norvasc) tablet 10 mg, Oral, AT BEDTIME cloNIDine (Catapres) patch 0.2 mg, Transdermal, q7 days cloNIDine (Catapres) tablet 0.3 mg, Oral, TID cloNIDine patch placement confirmation, Transdermal, BID heparin injection 5,000 Units, Subcutaneous, TID hydrALAZINE (Apresoline) tablet 100 mg, Oral, TID labetalol (Normodyne; Trandate) tablet 200 mg, Oral, q8h losartan (Cozaar) tablet 100 mg, Oral, QDAY polyethylene glycol 3350 (Miralax) packet 17 g, Oral, QDAY [START ON 09/07/2022] epoetin deyanira-EPBX (Retacrit) injection 8,000 Units, Intravenous, q7 days CONTINUOUS MEDICATIONS: PRN MEDICATIONS: 0.9% NaCl injection 1-10 mL, Intracatheter, PRN acetaminophen (Tylenol) tablet 500 mg, Oral, q4h PRN albuterol HFA (Proventil; Ventolin; Proair) 108 (90 Base) MCG/ACT inhaler 2 puff, Inhalation, q6h PRN albuterol-ipratropium (Duo-Neb) nebulizer solution 3 mL, Inhalation, q4h PRN hydrALAZINE (Apresoline) injection 15 mg, Intravenous, q4h PRN labetalol (Normodyne; Trandate) injection 20 mg, Intravenous, q2h PRN senna (Senokot) tablet 8.6 mg, Oral, QDAY PRN Relevant [facility] Recent Labs Component Name 09/01/22 0708/30/2241908/29/22 0204 WBC 8.8 9.1 8.3 RBC 2.58* 2.51* 2.25* HGB 7.4* 7.2* 6.5* HCT 23.3* 22.6* 20.0* MCV 90.3 90.0 88.9 PLTCOUNT 205 200 189 Recent Labs Component Name 09/01/2270508/31/22 0903 08/30/22 0420 08/15/22 0339 03/09/22 1312 SODIUM - - - - 140 POTASSIUM 4.2 4.0 3.7 - 3.9 CHLORIDE - - - - 109 CO2 27 26 25 - 21 GLUCOSE 146* 135* 133* - 99 BUN 72* 45* 73* - 65* CREATININE 3.83* 2.66* 3.44* - 2.74* ALBUMIN - - - - 3.6 CALCIUM 9.6 9.3 9.2 - 8.7 AST - - - - 14 ALT - - - - 12 - = values in this interval not displayed. Relevant imaging reviewed in [facility] CXR with improving congestion Assessment/Plan: Pontine intraparenchymal hemorrhage Hypertensive emergency: - NSGY and Neurology following - medical management, goal SBP <180 - continue amlodipine, losartan, labetalol, hydralazine and clonidine scheduled; suspect will see some more improvement with HD and volume removal - IV hydralazine or labetalol PRN for SBP >180 - will ask Nephro for assistance in consolidating BP regimen now she is closer to discharge: on 09/02 added 0.2mg clonidine patch, will continue TID 0.3mg clonidine pills for next 24h and then stop toallow patch to reach effective dose - on 09/03 plan to convert labetalol 200mg TID to Coreg 12.5mg BID with up- titration to keep SBP at goal - if BP still not controlled after the above two changes consider changing amlodipine 10mg to nifedipine 30mg xL Acute hypoxic respiratory failure due to pulmonary edema and aspiration pneumonia: - HD for volume - finished pip/tazo for aspiration PNA - nocturnal desaturation study done, she needs outpatient sleep study and to continue supplemental O2 at night - repeat CT per Pulm shows RLL and RML atelectasis and partial atelectasis left lung; continue IS, PT?OT, up to chair TID, aerobika CKD V with acute injury now needing HD: - temp cath in place - Nephrology following for HD Anemia: - hgb 7.2 today - EPO per Nephro - no signs of bleeding - iron panel good this admission, no need for iron - b12 and folate are ok Pharyngeal dysphagia: - passed MBS on dysphagia diet Lines: PIV, temp dialysis line Diet: Dysphagia 2 diet with thin liquids, aspiration precautions Abx end date: NA Consults: Neuro, NSGY, Nephro DVT prophylaxis: Heparin Code status: Full Disposition: pending placement, working on insurance appeal; for some reason she was denied acute rehab while still in the ICU on 08/24 Almaz Patel MD [facility] 09/02/2022 * Fan Carter RN - 09/02/2022 11:09 AM CDT Consult from nursing for sacral assessment. Pt is not available - off the floor. Will follow as time permits. * Dmitriy Mari MSW - 09/02/2022 10:41 AM CDT [facility]Y followed up with the insurance appeal. Insurance was submitted prior to the pt coming to , and the insurance was denied on 08/24 with a letter. BRADY confirmed that the pt is on day for an opportunity to submit a peer 2 peer. Peer 2 peer call information is [phone] Reference #[id number]. BRADY updated team on the peer 2 peer information to be completed. BRADY will continue to follow up. Pt and family interested in [facility] RENDON. Dmitriy Mari, BRADY student [id number] 09/02/2022 * Marilou Lopez OT - 09/02/2022 10:40 AM CDT [facility] Department of Physical Medicine & Rehabilitation Progress Note Patient: Kirsty Rea [facility] Record Number: [id number] Date of : 1940 Age: [age] year old 09/02/22 1040 Missed Visit Missed Visit Procedure Off Floor Patient off the floor Dialysis AM 1040- patient off the floor at dialysis. Will follow up as schedule permits. * Ying Diaz, PT - 09/02/2022 9:50 AM CDT [facility] Department of Physical Medicine & Rehabilitation Progress Note Patient: Kirsty Rea [facility] Record Number: [id number] Date of : 1940 Age: [age] year old 09/02/22 0950 Missed Visit Missed Visit Procedure Off Floor (Dialysis) Patient off floor for HD treatment. PT to follow up as able. * Vanessa Blakely SLP - 09/02/2022 9:22 AM CDT [facility] Department of Physical Medicine & Rehabilitation Progress Note Patient: Kirsty Rea [facility] Record Number: [id number] Date of : 1940 Age: [age] year old 09/02/22 0922 Missed Visit Missed Visit RN care prior to HD, will attempt later today if schedule allows. Vanessa Barr M.S., [facility] Speech Language Pathologist [phone] * Lexi Holden, RN - 09/02/2022 9:01 AM CDT Diagnosis (TOÑA/CRF):crf Non-Renal Diagnosis: respiratory failure Isolation No active isolations Does patient have signs or symptoms of respiratory infection(fever, cough, shortness of breath):no Allergies Allergen Reactions ??? Ramipril Other Other reaction(s): Other (See Comments) Kidney Damage Kidney Damage Code Status:full Orientation Status:x4 On telemetry/Rhythm:no Oxygen:3L Given any medications:see mar Need for pain medications:no Blood pressure issues:no On any drips:no Is patient diabetic:no Any labs to draw:no Any other procedures today:no Any concerns about this patient :no Any medications to be given with dialysis:no Report from:Angelita Ryan RN Phone number:[phone] * Dianne Callaway, - 09/02/2022 8:20 AM CDT Pulmonary Medicine Consult Note Name: Kirsty Rea, [id number] Age: [age] year old Room: 843/01 Date Admitted: 08/15/2022 ? Subjective: Hospital Course: Ms. Kirsty Rea??is an 81 y/o female??w/ hx of HTN,??CKD stage V,??morphea, who was admitted to [facility] on??08/15/22 to the Neuro-ICU for further care of pontine IPH. CT chest wo contrast on 08/22 showed moderate L sided pleural effusion with radha-bronchial consolidation. ??Pulmonary was then consulted on 08/22 for further management of AHRF, pleural effusion and abnormal CT finding. She was subsequently treated for possible aspiration PNA for 5 days with Pip/Tazo, MRSA nares negative. She was diuresed and later transferred to the MICU for hypertensive emergency requiring nicardapine gtt. Also noted to have worsening volume overload and pulmonary edema. She was seen by Nephrology - HD catheter placed and HD initiated. Pulmonary was consulted on 08/31/22 due to R pleural effusion for consideration of thoracentesis. ?? POCUS was performed by the Pulmonary team with minimal fluid visualization. US notable for atelectatic lung. Patient being dialyzed with last HD session 08/31/22 with 2.5L removed. Echo notable for HFpEF. Interval History: Patient was seen at the bedside this morning, denied overnight issues. She feels well this morning without significant shortness of breath in supine position. She denies any significant coughing or sputum production, denies hemoptysis, wheezing, chest pain, or chills. Still appears weak and frail. An incentive spirometer was provided to her this morning and taught how to use the device. NG tube has been removed. Speech therapy swallow recommendations include minced/moist diet and chin tuck withall liquid intake. She had a CT chest w/o contrast performed on 09/02/22 which I personally reviewed with comparison toprior CT Chest from 08/22/22. Imaging revealed atelectatic RLL with minimal, pleural effusion. Objective: Physical Examination: General - NAD, afebrile, non-cachectic, A&O x3 HEENT - NC/AT, EOMI, clear conjunctivae, throat without erythema or exudate Chest - CTAB anteriorly, no wheezing, crackles or rhonchi CV - RRR, no murmurs, radial and DP pulses 4/4 Abdomen - Soft, NT/ND, +BS Musculoskeletal - Moves all four extremities Extremities - No clubbing, no cyanosis, no edema Skin - No rashes, lesions or jaundice Neurologic - No focal deficits Psych - Appropriate mood and affect Input/Output Intake/Output Summary (Last 24 hours) at 09/02/2022 0821 Last data filed at 09/02/2022 0126 Gross per 24 hour Intake 450 ml Output -- Net 450 ml ? Data Review: Labs: Reviewed. Imaging: Reviewed. CT CHEST WO CONTRAST (09/01/2022) Impression: 1.Atelectasis involving most of the right lower lobe. Lesser degree of middle lobe atelectasis. Mild left lung atelectasis. 2.Trace right pleural effusion, decreased. No left pleural effusion. Micro: Reviewed. Assessment and Plan: Assessment: 1. Acute hypoxic respiratory failure 2. RLL atelectasis with no significant pleural effusion 3. Aspiration pneumonia, treated 4. moderate oropharyngeal dysphagia 5. Nocturnal desaturations, needs NAZANIN work-up with polysomnography outpatient 6. Echo consistent with Mild pulmonary hypertension, estimated pulmonary arterial systolic lequiccr56 mmHg. 7. Former smoker < 20 pack years 8. HFpEF In summary this is an 81 y/o F with AHRF secondary to RLL atelectatic lung who was seen for consideration of Thoracentesis. It was noted that there is no pocket for drainage via thoracentesis. CT confirmed there is no significant pleural fluid, though there is significant atelectasis. Recommend continued dialysis for decreasing fluid overload, incentive spirometry and aerobika, and early ambulation. Plan: - No drainable pocket for thoracentesis, continue current management and HD. - pulm toilet - PT/OT, early ambulation, incentive spirometry, Aerobika, dietary recommendations per ST - Nocturnal desaturations seen on study on 08/31/22 - patient needs formal outpatient polysomnogram for evaluation of possible NAZANIN. For now continue nightly supplemental O2. If daytime hypoxia improves, please repeat nocturnal desaturation study. - follow-up in outpatient clinic on 10/18/22 at [address] Artem Hernandez Thank you for this consult. Pulmonary will sign off at this time. Please call with any further questions. This case has been discussed with the pulmonary attending, Dr. Randall. Dianne Callaway DO PGY-2, Internal Medicine 09/02/2022 8:21 AM * Pricilla Ryan RN - 09/02/2022 7:59 AM CDT Problem: Fall Risk Goal: Fall risk and fall related injury risk are minimized (interventions related to the fall risk can be found in the flowsheet documentation) 09/02/2022 075 by Pricilla Ryan RN Outcome: Progressing 09/01/2022 1818 by Pricilla Ryan RN Outcome: Progressing Problem: Neurological Deficit Goal: Neurological status is stable or improving 09/02/2022 075 by Pricilla Ryan RN Outcome: Progressing 09/01/2022 181 by Pricilla Ryan RN Outcome: Progressing Problem: Hemodynamic Status/Cardiac Output Goal: Patient has stable vital signs and fluid balance 09/02/2022758 by Pricilla Ryan RN Outcome: Progressing 09/01/2022 1818 by Pricilla Ryan RN Outcome: Progressing Problem: Oxygenation/Respiratory Function Goal: Respiratory rate/effort will be within specified limits 09/02/2022 075 by Pricilla Ryan RN Outcome: Progressing 09/01/20221817 by Pricilla Ryan RN Outcome: Progressing Problem: Mobility Goal: Patient's mobility/activity will be maintained as optimum level for age, diagnosis and physical limitations 09/02/2022 075 by Pricilla Ryan RN Outcome: Progressing 09/01/20221817 by Pricilla Ryan RN Outcome: Progressing Goal: Continuum of care needs are further met through referral to outpatient services when appropriate. 09/02/2022 075 by Pricilla Ryan RN Outcome: Progressing 09/01/20221817 by Pricilla Ryan RN Outcome: Progressing Goal: Patient reports the ability to perform Activities of Daily Living. 09/02/2022 075 by Pricilla Ryan RN Outcome: Progressing 09/01/20221817 by Pricilla Ryan RN Outcome: Progressing Problem: Communication Impairment/Dysarthria Goal: Ability to express needs and understand communication 09/02/2022 075 by Pricilla Ryan RN Outcome: Progressing 09/01/20221817 by Pricilla Ryan RN Outcome: Progressing Problem: Nutrition Goal: Nutritional status is improving 09/02/2022758 by Pricilla Ryan RN Outcome: Progressing 09/01/20221817 by Pricilla Ryan RN Outcome: Progressing Problem: Aspiration Precautions Goal: Patient's risk of aspiration is minimized 09/02/2022758 by Pricilla Ryan RN Outcome: Progressing 09/01/20221817 by Pricilla Ryan RN Outcome: Progressing Problem: Glycemic Control Goal: Clinical indication of glycemia balance is achieved 09/02/2022 075 by Pricilla Ryan RN Outcome: Progressing 09/01/20221817 by Pricilla Ryan RN Outcome: Progressing Problem: Knowledge Deficit,Education,Discharge Plan Goal: The patient/family will understand cerebrovascular disease and its symptoms, treatment and management 09/02/2022758 by Pricilla Ryan RN Outcome: Progressing 09/01/20221817 by Pricilla Ryan RN Outcome: Progressing Problem: Mobility Goal: STG - Patient will ambulate 09/02/2022758 by Pricilla Ryan RN Outcome: Progressing 09/01/2022 181 by Pricilla Ryan RN Outcome: Progressing Problem: Pain/Discomfort Goal: Patient exhibits reduced pain/discomfort as evidenced by pain scores 09/02/2022 075 by Pricilla Ryan RN Outcome: Progressing 09/01/20221817 by Pricilla Ryan RN Outcome: Progressing Goal: Patient uses pharmacological and non-pharmacological pain management strategies. 09/02/2022 075 by Pricilla Ryan RN Outcome: Progressing 09/01/20221817 by Pricilla Ryan RN Outcome: Progressing Goal: Patient verbalizes acceptable level of pain relief and ability to engage in desired activity. 09/02/2022 075 by Pricilla Ryan RN Outcome: Progressing 09/01/20221817 by Pricilla Ryan RN Outcome: Progressing Problem: Ineffective Airway Clearance Goal: Patent airway 09/02/2022 075 by Pricilla Ryan RN Outcome: Progressing 09/01/20221817 by Pricilla Ryan RN Outcome: Progressing Problem: Swallowing Goal: LTG - Patient will demonstrate safe swallowing Intervention/techniques 09/02/2022 075 by Pricilla Ryan RN Outcome: Progressing 09/01/20221817 by Pricilla Ryan RN Outcome: Progressing Goal: LTG - Patient will tolerate the least restrictive diet consistency to allow for safe consumption of daily meals 09/02/2022 075 by Pricilla Ryan RN Outcome: Progressing 09/01/20221817 by Pricilla Ryan RN Outcome: Progressing Goal: STG - Patient will complete swallowing exercises 09/02/2022 075 by Pricilla Ryan RN Outcome: Progressing 09/01/20221817 by Pricilla Ryan RN Outcome: Progressing Goal: STG - Patient will participate in instrumental assessment of swallowing as appropriate 09/02/2022758 by Pricilla Ryan RN Outcome: Progressing 09/01/20221817 by Pricilla Ryan RN Outcome: Progressing Problem: Oral Intake: Inadequate oral intake Goal: Total intake will meet estimated nutrient needs 09/02/2022 075 by Pricilla Ryan RN Outcome: Progressing 09/01/20221817 by Pricilla Ryan RN Outcome: Progressing Problem: Fluid and Electrolyte Imbalance Goal: Fluid and electrolyte balance are achieved/maintained 09/02/2022 075 by Pricilla Ryan RN Outcome: Progressing 09/01/20221817 by Pricilla Ryan RN Outcome: Progressing Problem: Infection Goal: Signs and symptoms of infections are decreased or avoided 09/02/2022 075 by Pricilla Ryan RN Outcome: Progressing 09/01/20221817 by Pricilla Ryan RN Outcome: Progressing Problem: Skin Integrity Goal: Skin integrity is maintained or improved 09/02/2022 075 by Pricilla Ryan RN Outcome: Progressing 09/01/20221817 by Pricilla Ryan RN Outcome: Progressing Problem: Balance Goal: LTG - Patient will maintain balance to allow for safe mobility 09/02/2022 075 by Pricilla Ryan RN Outcome: Progressing 09/01/20221817 by Pricilla Ryan RN Outcome: Progressing * Josh Harrell MD - 09/01/2022 3:42 PM CDT Nephrology Progress Note 09/01/2022 3:42 PM Patient Name: Kirsty Rea (81 year old) Room Number: 843/01 Attending: Almaz Patel MD Hospital Day: 17 81 F h/o HTN, CKD stage 5 presented from healthcare facility with 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 Her hosp stay c/b acute hypoxic respiratory failure and acute renal failure which required initiation of intermittent hemodialysis.Initially she was on 15 L/min and now on 5 L/min.Also suspicion of Aspn PNA. Subjective: Interval history: - Underwent DUF yest 2.5 L, also had UO ~ 900ml. - NAEON, feels ok, no cp, still sob, on 3 L O2 Objective: Patient Vitals for the past 6 hrs: Temp Pulse Resp BP 09/01/22 1130 98.1 ??F (36.7 ??C) 88 18 136/47 Intake/Output Summary (Last 24 hours) at 09/01/2022 1542 Last data filed at 09/01/2022 0426 Gross per 24 hour Intake 844 ml Output 3400 ml Net -2556 ml Physical Exam General: comfortable HENT: NC/AT, thrush noted Eyes: Anicteric. Non-injected. Chest: Reduced breath sounds RLL. Permcath at right chest. Cardiovascular: RRR. No murmurs, rubs, or gallops Abdomen: Soft. NT/ND. Normal BS+. : Uqijano catheter in place Extremities: No signs of clubbing, cyanosis, or edema. Skin: Warm. Dry. Neurological: AO x 2-3;Moves all extremities spontaneously Psych: Appropriate mood and affect Medications SCHEDULED MEDICATIONS: 0.9% NaCl injection 3 mL, Intracatheter, q8h amLODIPine (Norvasc) tablet 10 mg, Oral, AT BEDTIME cloNIDine (Catapres) tablet 0.3 mg, Oral, TID epoetin deyanira-EPBX (Retacrit) injection 7,000 Units, Subcutaneous, q7 days heparin injection 5,000 Units, Subcutaneous, TID hydrALAZINE (Apresoline) tablet 100 mg, Oral, TID labetalol (Normodyne; Trandate) tablet 200 mg, Oral, q8h [COMPLETED] barium (Varibar Thin) 40 % liquid SUSR 50 mL, Oral, Once [COMPLETED] barium (Varibar) 40 % paste PSTE, Oral, Once [COMPLETED] barium (Varibar) 40 % suspension, Oral, Once [START ON 09/02/2022] losartan (Cozaar) tablet 100 mg, Oral, QDAY ?? [START ON 09/02/2022] polyethylene glycol 3350 (Miralax) packet 17 g, Oral, QDAY ?? CONTINUOUS MEDICATIONS: PRN MEDICATIONS: 0.9% NaCl injection 1-10 mL, Intracatheter, PRN acetaminophen (Tylenol) tablet 500 mg, Oral, q4h PRN albuterol HFA (Proventil; Ventolin; Proair) 108 (90 Base) MCG/ACT inhaler 2 puff, Inhalation, q6h PRN albuterol-ipratropium (Duo-Neb) nebulizer solution 3 mL, Inhalation, q4h PRN hydrALAZINE (Apresoline) injection 15 mg, Intravenous, q4h PRN labetalol (Normodyne; Trandate) injection 20 mg, Intravenous, q2h PRN ?? senna (Senokot) tablet 8.6 mg, Oral, QDAY PRN Data Review Recent Labs Component Name 09/01/22 0706 08/30/22 0420 08/29/22 0204 WBC 8.8 9.1 8.3 HGB 7.4* 7.2* 6.5* HCT 23.3* 22.6* 20.0* PLTCOUNT 205 200 189 Recent Labs Component Name 09/01/22 0706 08/15/22 0339 03/09/22 1312 SODIUM - - 140 POTASSIUM 4.2 - 3.9 CHLORIDE - - 109 CO2 27 - BUN 72* - 65* CREATININE 3.83* - 2.74* CALCIUM 9.6 - 8.7 ALBUMIN - - 3.6 ALT - - 12 AST - - 14 GLUCOSE 146* - 99 - = values in this interval not displayed. Recent Labs Component Name 08/27/22 0439 08/26/22 0330 08/25/22 0338 INR 0.9 1.0 0.9 Microbiology: Reviewed in Epic Imaging: [facility] Assessment and Plan: 81 F h/o HTN, CKD stage 5 presented from healthcare facility with 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 Reyes) as outpatient; recent biopsy due to nephrotic range proteinuria that noted hypertensive nephrosclerosis - R IJ CVC placed 08/23,replaced by permcath on 08/25 - Pt was since then dialyzed regularly with ~ 8 L UF, Oxygen requirement improved from 15 L/min to 3 L/min - Next dialysis tomorrow 09/02/22 - D/c planning: TTS [facility], Dr Reyes ?? #Hypertension - controlled on Hydral 100 tid, clonidine 0.3mg tid, labetolol 200mg tid, amlod 10mg, losartan 50 mg, agree with transition PO clonidine to clonidine patch, will need to keep patch(start at 0.2 mg patch) and clonidine tablets for 24 hours and stop clonidine pills after, agree with consideration of Coreg 12.5 bid from labetolol 200 mg tid, may need to increase Coreg later ?? #Normocytic Anemia - Yesterday's labs, Hb 7.2 - Iron studies ordered this hospitalization: - Iron 77 - TSat 31% - TIBC 248 - Ferritin 180 - c/w Retacrit 7000U weekly DC planning: Pt follows Dr. Reyes in [place], family wants pt to be in [facility]. ?? Patient was seen and discussed with attending physician, Dr. Cintron. Josh Harrell MD Nephrology fellow 09/01/2022 3:42 PM Associated attestation - Peggy Cintron MD - 09/01/2022 9:07 PM CDT Attending Addendum I have seen and examined the patient with the renal team today. I agree with the findings and plan of care as documented by the fellow. In addition I note: 81 yo female with advanced chronic kidney disease due to hypertensive nephrosclerosis per kidney biopsy (based on Dr. Reyes's note) and other medical problems as per consult note, was transferred from OSH for further management of ICH. The patient is receiving intermittent HD and tolerated 2.5L UF yesterday. Plan next hemodialysis treatment for tomorrow. Recommend to add daily renal vitamin. Consider replacing clonidine tablets with clonidine patch. Please see fellow's note for further details. * Chrissie Johns - 09/01/2022 3:31 PM CDT Images from the original note were not included. Kidney Navigator Note UPDATE Following pt for outpatient dialysis needs. Hep B total Core has resulted, faxed to admissions. Also, updated chest x-ray sent. Will continue to follow pt progress and update. 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 She was in the neuro ICU where she developed acute hypoxic respiratory failure thought due to aspiration PNA plus volume overload but is nowon the floor and oxygen needs are improving. Now on HD. Subjective: She is doing well today. Is glad to have NG out and to be able to drink fluids. No cp or sob. No n/v. Objective: BP 136/47 Pulse 88 Temp 98.1 ??F (36.7 ??C) (Oral) Resp 18 Ht 1.727 m (5' 7.99 ) Wt 73.5kg (162 lb) SpO2 95% Physical Exam Alert, no distress Oral mucosa moist Heart rrr Lungs with bibasilar mild crackles Abdomen soft and NT No pitting edema MEDICATIONS FOR CURRENT ENCOUNTER: SCHEDULED MEDICATIONS: 0.9% NaCl injection 3 mL, Intracatheter, q8h amLODIPine (Norvasc) tablet 10 mg, Oral, AT BEDTIME cloNIDine (Catapres) tablet 0.3 mg, Oral, TID epoetin deyanira-EPBX (Retacrit) injection 7,000 Units, Subcutaneous, q7 days heparin injection 5,000 Units, Subcutaneous, TID hydrALAZINE (Apresoline) tablet 100 mg, Oral, TID labetalol (Normodyne; Trandate) tablet 200 mg, Oral, q8h [COMPLETED] barium (Varibar Thin) 40 % liquid SUSR 50 mL, Oral, Once [COMPLETED] barium (Varibar) 40 % paste PSTE, Oral, Once [COMPLETED] barium (Varibar) 40 % suspension, Oral, Once [START ON 09/02/2022] losartan (Cozaar) tablet 100 mg, Oral, QDAY [START ON 09/02/2022] polyethylene glycol 3350 (Miralax) packet 17 g, Oral, QDAY CONTINUOUS MEDICATIONS: PRN MEDICATIONS: 0.9% NaCl injection 1-10 mL, Intracatheter, PRN acetaminophen (Tylenol) tablet 500 mg, Oral, q4h PRN albuterol HFA (Proventil; Ventolin; Proair) 108 (90 Base) MCG/ACT inhaler 2 puff, Inhalation, q6h PRN albuterol-ipratropium (Duo-Neb) nebulizer solution 3 mL, Inhalation, q4h PRN hydrALAZINE (Apresoline) injection 15 mg, Intravenous, q4h PRN labetalol (Normodyne; Trandate) injection 20 mg, Intravenous, q2h PRN senna (Senokot) tablet 8.6 mg, Oral, QDAY PRN Relevant [facility] Recent Labs Component Name 09/01/22 0706 08/30/22 0420 08/29/22 0204 WBC 8.8 9.1 8.3 RBC 2.58* 2.51* 2.25* HGB 7.4* 7.2* 6.5* HCT 23.3* 22.6* 20.0* MCV 90.3 90.0 88.9 PLTCOUNT 205 200 189 Recent Labs Component Name 09/01/22 0706 08/31/22 0903 08/30/22 0420 08/15/22 0339 03/09/22 1312 SODIUM - - - - 140 POTASSIUM 4.2 4.0 3.7 - 3.9 CHLORIDE - - - - 109 CO2 27 26 25 - 21 GLUCOSE 146* 135* 133* - 99 BUN 72* 45* 73* - 65* CREATININE 3.83* 2.66* 3.44* - 2.74* ALBUMIN - - - - 3.6 CALCIUM 9.6 9.3 9.2 - 8.7 AST - - - - 14 ALT - - - - 12 - = values in this interval not displayed. Relevant imaging reviewed in [facility] CXR with improving congestion Assessment/Plan: Pontine intraparenchymal hemorrhage Hypertensive emergency: - NSGY and Neurology following - medical management, goal SBP <180 - continue amlodipine, losartan, labetalol, hydralazine and clonidine scheduled; suspect will see some more improvement with HD and volume removal - IV hydralazine or labetalol PRN for SBP >180 - will ask Nephro for assistance in consolidating BP regimen now she is closer to discharge, clonidine patch? Coreg instead of labetalol? Acute hypoxic respiratory failure due to pulmonary edema and aspiration pneumonia: - HD for volume - finished pip/tazo for aspiration PNA - nocturnal desaturation study pending, continue nocturnal O2, repeat nocturnal study if improvement in daytime O2 - Pulm evaluated bedside and no effusion noted on US, has right lung base atelecatsis. Up in chair TID as tolerated and incentive spirometry and mobilization with PT/OT CKD V with acute injury now needing HD: - temp cath in place - Nephrology following for HD Anemia: - hgb 7.2 today - EPO per Nephro - no signs of bleeding - iron panel good this admission, no need for iron - b12 and folate are ok Pharyngeal dysphagia: - passed MBS on dysphagia diet Lines: PIV, temp dialysis line Diet: Dysphagia 2 diet with thin liquids, aspiration precautions Abx end date: NA Consults: Neuro, NSGY, Nephro DVT prophylaxis: Heparin Code status: Full Disposition:Inpatient for ongoing care Almaz Patel MD [facility] 09/01/2022 * Concepción Weston, PT - 09/01/2022 1:11 PM CDT [facility] Physical Medicine and Rehabilitation Physical Therapy Progress Note Patient: Kirsty Rea [facility] Record Number: [id number] Date of : 1940 Age: [age] year old PPE worn by staff: gloves;mask - procedural PPE worn by patient: gown - patient, clean;socks - clean Discharge Recommendation: Patient will benefit from intense 3 hour per day multidisciplinary inpatient therapies due to regain independence s/p CVA. SUBJECTIVE: Subjective: Patient is agreeable to PT treatment, asks how am I doing? Pain Assessment: Pain Rating Score #: 0 Follow-up for pain: No follow-up for pain indicated and patient agreed to proceed with treatment PRECAUTIONS: Weight Bearing Status: (no restrictions) Activity Level: (ambulate with assistance) Other Precautions: Fall OBJECTIVE: At start of therapy session, patient found in patient bedside chair and with chair alarm on General Appearance: Thin adult female, in NAD LDAs: IV's: Peripheral line, Oxygen, and NG/Dobbhoff Vitals: (*Assess the 3 levels of oxygen saturations both for room air and 02 unless rest on room air is 88% or less). Rest BP: -- HR: 88 Sp02 Sp02 94% 92% 2L O2 Room Air Ex/Gait/Activity Without 02 BP: -- HR: 105 (HR max) Sp02 90-92% Room Air Post Activity BP: 173/61 HR: 96 Sp02 Sp02 94% 90% 2L O2 Room Air Mental Status/Cognition: Level of Consciousness-Adult: Alert Orientation Level: Oriented X4 Cognition: Follows Commands-Consistent Mobility: A gait belt and non-slip socks were used for all out of bed activity this date. Transfers: Sit to Stand: Moderate Assistance Stand to Sit: Moderate Assistance Transfer Device: Gait belt;Walker-2 Wheeled Gait: Weight Bearing Status: (no restrictions) Distance Ambulated: (15 feet x2; seated rest break taken between trials) Ambulation: Assistive Device: Gait Belt;Walker-2 Wheeled (chair follow) Ambulation: Level of Assistance: Minimum Assistance Ambulation: Gait Deviations: Deedee - Decreased;Heel Strike - Decreased;Increased Weight Bearing through Upper Extremity;Push Off - Decreased;Step Length - Decreased (intermittent bilateral knee instability) Balance: Sitting - Static: Fair +;With Both Upper Extremity's Support Sitting - Dynamic: Fair;With Both Upper Extremity's Support Standing - Static: Fair;With Both Upper Extremity's Support Standing - Dynamic: Fair -;With Both Upper Extremity's Support ACTIVITY TOLERANCE: Patient's activity tolerance: fair minus. TREATMENT/INTERVENTIONS: transfer training, gait training and monitoring of vitals Modified [place]: Current Modified [place] Score: 4 EDUCATION: While performing PT, Patient was instructed in: functional mobility training, safety awareness/fall precautions ?? Presented to patient who demonstrates Good understanding of instructions given. ?? INFORMED CONSENT TO TREATMENT: Plan of care including recommended therapy, goals and frequency, discussed with patient who understands and agrees to proceed. ?? ASSESSMENT: Patient would benefit from additional Physical Therapy sessions to achieve the following functionalgoals to enhance independence. ?? Short Term Goals: Patient will perform bed mobility with minimal assist Patient will transfer sit to/from stand with minimal assist Patient will transfer bed to/from chair with minimal assist Patient will ambulate 50 feet with minimal assist and appropriate AD Non Destructive Testing Scientist Goal(s): Patient to discharge to appropriate next level of inpatient care. ?? Equipment Issued: gait belt already issued Plan: Patient continues to benefit from skilled therapy services., Continue with goals as established. If patient is discharged from the facility, this note serves as a discharge summary if further physical therapy visits did not occur. Refer to filed flowsheet for further details. Following therapy session, patient left in patient bedside chair, with chair alarm on, with call light within reach, with therapy cues visible on white board. * Dmitriy Mari MSW - 09/01/2022 12:39 PM CDT Images from the original note were not included. New Facility Referral Follow-Up Update: Spoke with Charlotte from [facility]. She mentioned that she went to submit for insuranceand it seems that [facility] already submitted and it was denied. Charlotte received the information for the appeal and communicated that the past social psychologist did not mention insurance was submitted once for a different facility. Current SW will attempt to submit an Appeal# [id number] and change of service for [facility] SW called insurance company and due to conversation the appeal is at the peer 2 peer level, social work then transferred the call to medical team to complete. BRADY will continue to follow up tomorrow on the completion of the appeal. Reference # [id number] Level of Care (SNF/Medicaid NH/Rehab/Intermediate Care/LTACH): ARU BRADY Spoke to Charlotte (Liaison, [facility] [phone]) and they need updated therapy notes for insurance. BRADY notified the PT/OT evualuation team.BRADY faxed over recent OT and progress note, BRADY is waiting for PT note. BRADY will continue to follow up. Referrals initiated: Continued Care and Services - Admitted Since 08/15/2022 Destination Service Provider Request Status Selected Services Address Phone Fax Patient Preferred [facility] Accepted N/A [address] [facility], [facility] [address] [phone] -- Internal Comment last updated by Chidi Martins 08/31/2022 1000 Spoke with Petar [phone] Facility can accept and transport Pt to dialysis [facility] Considering Need insurance authorization [id number] FRANC CERNA, [facility] [address] [phone] -- Internal Comment last updated by Chidi Martins 08/31/2022 1008 Left VM for Charlotte (Liaison) [facility] Pending - Request Sent N/A [address] [address] [phone] -- [facility])Pending - Request Sent N/A [address] [facility] [address] [phone] -- Current Capacity last updated by Maria L Del Rosario on 06/10/2022 1047 [address] [facility] Pending - Request Sent N/A [address] [facility] [facility] [address] [phone] -- [facility] Declined Facility cannot provide for patient's needs, Facility unable to provide dialysis services N/A [address] [facility] [address] [phone] [facility] Declined Facility cannot provide for patient's needs, Unable to provide dialysis N/A [address] [facility] [address] [phone] -- [facility] Declined Facility cannot provide for patient's needs N/A [address] [facility] [address] [phone] -- [facility] Declined Facility cannot provide for patient's needs [place]/A [address] [facility] [address] [phone] -- Internal Comment last updated by Chidi Martins 08/31/2022 [address] [phone] called; facility unable to accept [facility] Declined Facility full N/A [address] [place] [address] [phone] -- Internal Comment last updated by Chidi Martins 08/31/2022 1441 Rec'd call from Marisa; facility does not have bed availability Dialysis/Infusion Service Provider Request Status Selected Services Address Phone Fax Patient Preferred [facility] Pending - Request Sent N/A [address] [place] [phone] -- If Medicare-3 day qualifying stay verified: Yes monitoring facility responses Comments/changes: Name: NIMO Delatorre Phone: [phone] * Linette Carrasco, PT - 09/01/2022 11:56 AM CDT [facility] Department of Physical Medicine & Rehabilitation Progress Note Patient: Kirsty Rea Med Record Number: [id number] Date of : 1940 Age: [age] year old 09/01/22 1140 Missed Visit Missed Visit Other (Comment) (pt working with OT at this time, will attempt to see patient as schedule allows) * Marilou Lopez OT - 09/01/2022 11:14 AM CDT [facility] Physical Medicine and Rehabilitation Occupational Therapy Progress Note Patient: Kirsty Rea Med Record Number: [id number] Date of : 1940 Age: [age] year old PPE worn by staff: gloves;mask - procedural Discharge Recommendation: Patient will benefit from intense 3 hour per day multidisciplinary inpatient therapies due to decreased mobility/ADL independence. Nurse contacted regarding patient status and/or discharge plan. Activity Level: Ambulate SUBJECTIVE: Subjective: Patient agreeable to participate. Family at bedside. Pain Assessment: Pain Rating Score #: 0 Follow-up for pain: No follow-up for pain indicated and patient agreed to proceed with treatment OBJECTIVE: At start of therapy session, patient found in bed and with bed alarm on General Appearance: supine in NAD LDA: IV's: Peripheral line, NG/Dobbhoff and Oxygen Nasal Cannula Vitals: (*Assess the 3 levels of oxygen saturations both for room air and 02 unless rest on room air is 88% or less). Rest BP: HR: 86 Sp02 Sp02 96% 3L Ex/Gait/Activity Without 02 BP: HR: Sp02 89% RA Ex/Gait/Activity With 02 BP: HR: 88 Sp02 95% 2L Post Activity BP: HR: Sp02 Sp02 95% 2L Observations: Min dyspnea with exertion, cues for PLB. Mental Status/Cognition: Level of Consciousness-Adult: Alert Orientation Level: Oriented X4 Cognition: Follows Commands-Consistent;Processing-delayed;Safety awareness-decreased;Judgement-decreased Following Commands: Follows one step commands with repetition/cues Safety Judgement: Decreased awareness of need for safety Awareness of Errors: Decreased awareness of deficits Problem Solving: Assistance required to generate solutions Mobility: a gait belt and non-slip socks were used for all out of bed activity this date. Bed Mobility: Supine to Sit: Moderate Assistance with HOB in semi-fowlers position Transfers: Sit to Stand: Moderate Assistance Stand to Sit: Moderate Assistance Bed to Chair: Moderate Assistance to Left;Requires Verbal Cues for Safety Type of Transfer: Stand Pivot Transfer Toilet Transfers: Moderate Assistance (on/off bedside commode from chair) Transfer Device: No Device Performs multiple stand pivot transfer from bed to chair, chair to BSC and BSC back to chair this date without device and moderate assist. Balance: Sitting - Static: Fair Sitting - Dynamic: Fair - Standing - Static: Fair - Standing - Dynamic: Poor Activities of Daily Living: Feeding: Stand By Assist (drink from cup seated in chair) Upper Body Dressing: Minimal Assistance (don/doff gown) Lower Body Dressing: Maximal Assistance (don/doff socks) Toileting: Maximal Assistance (posterior pericare in standing (incontinent of stool this date)) Splint Issued/Checked: none ACTIVITY TOLERANCE: Patient's activity tolerance: fair Modified New Ringgold: Current Modified [place] Score: 4 TREATMENT/INTERVENTIONS: ADL training Functional transfer training Endurance training Bed mobility Safety awareness EDUCATION: While performing OT, Patient and son and daugther was instructed in:functional mobility training, self-care training, safety awareness/fall precautions , pursed lip breathing techniques, stroke education and precautions, discharge planning, use of call light Presented to patient who demonstrates Fair understanding of instructions given. INFORMED CONSENT TO TREATMENT: Plan of care including recommended therapy, goals and frequency, discussed with patient who understands and agrees to proceed. ASSESSMENT: Patient continues to benefit from skilled Occupational Therapy to achieve the following functional goals. Short Term Goals: Goal Formation With patient Patient will perform grooming standing at sink and with stand by assist Patient will transfer to standard toilet with minimal assist Patient will perform supine to/from sit with minimal assist Patient will transfer sit to stand with minimal assist Patient will perform bed to chair with minimal assist ?? Non Destructive Testing Scientist Goal(s): Patient to discharge to appropriate next level of inpatient care. Plan: Patient continues to benefit from skilled therapy services. If patient is discharged from the facility, this note serves as a discharge summary if further occupational therapy visits did not occur. Refer to filed flowsheet for further details. Following therapy session, patient left in patient bedside chair, with chair alarm on, with call light within reach, with family in room, with RNPricilla aware, with therapy cues visible on white board. * Vanessa Blakely SLP - 09/01/2022 10:00 AM CDT Images from the original note were not included. [facility] Modified Barium Swallow Study Patient: Kirsty Rea Med Record Number [id number] Date of : 1940 Age: [age] year old PPE: PPE donned by HARBORMASTER during this session - N95 mask, eye protection and gloves. Referring Physician: MED 3 - Dr. 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 CKD (chronic kidney disease) stage 3, GFR 30-59 ml/min ([facility]) proteinuria; Oven Dauber = Dr. Reyes ??? HTN (hypertension), benign ??? 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 Morphea ??? Osteopenia Impression: Pt presents with moderate oropharyngeal dysphagia characterized by disorganized mastication of solids, delayed A-P transit across consistencies, reduced tongue base retraction, incompleteepiglottic deflection and incomplete laryngeal vestibule closure with observed deep penetration with thin and nectar thickened liquids and trace aspiration of nectar thickened liquids x1. HARBORMASTER instructed Pt on chin tuck maneuver later during the exam, which did not result in aspiration or deep laryngeal penetration. Will recommend advancing to a Minced & Moist (5)/Mech Altered (DYS2) diet withthin liquids while following strict aspiration precautions listed below. HARBORMASTER will plan to follow upfor diet tolerance and initiation of dysphagia exercises to hopefully improve Pt's oropharyngeal swallow function. Swallow Recommendations: ??? Liquids: Thin ? ? Diet: Minced & Moist (5)/Mech Altered (DYS2) ??? Swallowing guidelines: o Sit at 90 degrees o Small, controlled amounts at slow rate o Medication crushed in puree o Supervision and/or assistance at meals o No straw o Chin tuck with all liquid intake Discharge Recommendation: Patient will benefit from intense 3 hour per day multidisciplinary inpatient therapies Speech therapy is recommended to improve swallow function. Assessment: Procedure: This procedure was performed in conjunction with radiology using lateral views. The patient was given thin liquid, nectar thick liquid, pudding consistency and cracker dipped in pudding/barium mix . Oral Stage: ?? Lip Closure: interlabial escape ?? Bolus Preparation/Mastication: slow prolonged chewing/mashing with complete re-collection ?? Bolus Transport/Lingual Motion: slowed tongue motion ?? Oral Residue: residue collection on oral structures; Location: Palate and base of tongue ?? Initiation of Pharyngeal Swallow: bolus head in pyriforms with thin liquids and nectar thickenedliquids, bolus head in the valleculae with puree and soft solid trials. Pharyngeal Stage: ?? Soft Palate Elevation: no bolus between soft palate/pharygneal wall ?? Laryngeal Elevation: partial superior movement of thyroid cartilage/partial approximation of arytenoids to epiglottic petiole ?? Anterior Hyoid Excursion: partial anterior movement ?? Epiglottic Movement: no inversion with thin liquids or nectar thickened liquids, partial inversion with puree and soft solids ?? Laryngeal Vestibule Closure: incomplete: narrow column of contract in laryngeal vestibule ?? Pharyngeal stripping wave: present-diminished ?? Pharyngeal Contraction: patient in bed, unable to complete in A-P ?? Pharyngoesophageal Segment Opening: complete distension and complete duration with no obstruction of flow ?? Tongue Base Retraction: narrow column of contrast between TB and PW ?? Pharyngeal Residue: collection of residue within or on pharyngeal structures; Location: valleculae Esophageal Stage: ?? Esophageal clearance upright position: patient in bed, unable to complete in A-P or able to do esophogeal scan Thin Fluids: Penetration: Amount: Trace Timing: During swallow Cough: Absent PAS Score: 5) Material enters the airway, contacts the vocal folds & is NOT ejected from the airway Chin tuck posture was attempted thin liquids thins later in the exam, this resulted in flash penetration during the swallow with contrast displacing back into the pharynx. Pelion-thick Fluids: Aspiration: Amount: Trace Timing: After swallow (residue in the hypopharynx was observed to fall into the laryngeal vestibuleand resulted in aspiration) Cough: Present PAS Score: 6) Material enters the airway, passes below the vocal folds & is ejected into the larynx or out of the airway Chin tuck posture was attempted later in the study but this still resulted in deep laryngeal penetration with nectar thickened liquids during the swallow that did not clear from the laryngeal vestibule given Pt without any cough/clear response. Swallowing Function: Moderate dysphagia Education: Patient, Nursing and Physician instructed in recommedations and indicated understanding. Informed Consent to Treatment: Plan of care including recommended therapy, goals and frequency, as well as potential risks and benefits of treatment/assessment explained to the patient who understands and agrees to proceed. Goals: Short Term Goal(s): Patient/staff/family to receive instruction in compensatory swallowing strategies andd/or recommendations and verbalize understandi., Patient to demonstrate no clinical signs/symptoms of aspiration or difficulty swallowing with recommended diet. and Patient to demonstrate the ability to complete oral motor pharyngeal exercises 3-5x/week to improve swallow function. Non Destructive Testing Scientist Goal(s): Patient to be independent/baseline with functional swallow and be able to safely discharge to priorlevel of care. Vanessa Barr M.S., [facility] Speech Language Pathologist [phone] * Pricilla Ryan RN - 09/01/2022 7:48 AM CDT Problem: Fall Risk Goal: Fall risk and fall related injury risk are minimized (interventions related to the fall risk can be found in the flowsheet documentation) Outcome: Progressing Problem: Neurological Deficit Goal: Neurological status is stable or improving Outcome: Progressing Problem: Hemodynamic Status/Cardiac Output Goal: Patient has stable vital signs and fluid balance Outcome: Progressing Problem: Oxygenation/Respiratory Function Goal: Respiratory rate/effort will be within specified limits Outcome: Progressing Problem: Mobility Goal: Patient's mobility/activity will be maintained as optimum level for age, diagnosis and physical limitations Outcome: Progressing Goal: Continuum of care needs are further met through referral to outpatient services when appropriate. Outcome: Progressing Goal: Patient reports the ability to perform Activities of Daily Living. Outcome: Progressing Problem: Communication Impairment/Dysarthria Goal: Ability to express needs and understand communication Outcome: Progressing Problem: Nutrition Goal: Nutritional status is improving Outcome: Progressing Problem: Aspiration Precautions Goal: Patient's risk of aspiration is minimized Outcome: Progressing Problem: Glycemic Control Goal: Clinical indication of glycemia balance is achieved Outcome: Progressing Problem: Knowledge Deficit,Education,Discharge Plan Goal: The patient/family will understand cerebrovascular disease and its symptoms, treatment and management Outcome: Progressing Problem: Mobility Goal: STG - Patient will ambulate Outcome: Progressing Problem: Pain/Discomfort Goal: Patient exhibits reduced pain/discomfort as evidenced by pain scores Outcome: Progressing Goal: Patient uses pharmacological and non-pharmacological pain management strategies. Outcome: Progressing Goal: Patient verbalizes acceptable level of pain relief and ability to engage in desired activity. Outcome: Progressing Problem: Ineffective Airway Clearance Goal: Patent airway Outcome: Progressing Problem: Swallowing Goal: LTG - Patient will demonstrate safe swallowing Intervention/techniques Outcome: Progressing Goal: LTG - Patient will tolerate the least restrictive diet consistency to allow for safe consumption of daily meals Outcome: Progressing Goal: STG - Patient will complete swallowing exercises Outcome: Progressing Goal: STG - Patient will participate in instrumental assessment of swallowing as appropriate Outcome: Progressing Problem: Oral Intake: Inadequate oral intake Goal: Total intake will meet estimated nutrient needs Outcome: Progressing Problem: Fluid and Electrolyte Imbalance Goal: Fluid and electrolyte balance are achieved/maintained Outcome: Progressing Problem: Infection Goal: Signs and symptoms of infections are decreased or avoided Outcome: Progressing Problem: Skin Integrity Goal: Skin integrity is maintained or improved Outcome: Progressing Problem: Balance Goal: LTG - Patient will maintain balance to allow for safe mobility Outcome: Progressing * Lore Vazquez RN - 08/31/2022 5:00 PM CDT DUF Complete Time: 3 hours Access: Tunneled HD CVC - RIJ UF: 2,500 ml Blood Processed: 63.2 L Medications: Epoetin - CVC lumens locked with NS dwell Tolerated: Well, VSS, no c/o with txmt Problem: Hemodynamic Status/Cardiac Output Goal: Patient has stable vital signs and fluid balance Outcome: Progressing Problem: Fluid and Electrolyte Imbalance Goal: Fluid and electrolyte balance are achieved/maintained Outcome: Progressing Problem: Infection Goal: Signs and symptoms of infections are decreased or avoided Outcome: Progressing * Dmitriy Mari MSW - 08/31/2022 2:52 PM CDT Images from the original note were not included. New Facility Referral Follow-Up Level of Care (SNF/Medicaid NH/Rehab/Intermediate Care/LTACH): ARU This pt is new to the 8 floor. SW is reviewing pt. Pt is recommended ARU. Family is interested in [facility] Acute rehab. Per past SW note 08/31 at 1:07am SW Spoke to [facility] (Liaison, [facility]) and they need updated therapy notes for insurance, and SW notified the Clinical team notified. BRADY attempted to follow up on the referral x2 and was unable to reach liaison JOHNY Porter [phone]. SW spoke with pt's family Stacy Sheppard (daughter) [phone] to update. SW will continue to follow. Referrals initiated: Continued Care and Services - Admitted Since 08/15/2022 Destination Service Provider Request Status Selected Services Address Phone Fax Patient Preferred [facility] Accepted N/A [address], [facility] [address] [phone] -- Internal Comment last updated by Chidi Martins 08/31/2022 1000 Spoke with Petar [phone] Facility can accept and transport Pt to dialysis [facility] Considering Need insurance authorization [id number] [address], [facility] [address] [phone] -- Internal Comment last updated by Chidi Martins 08/31/2022 1008 Left VM for Charlotte HYATT (Liaison) [facility] Pending - Request Sent N/A [address] [facility] [address] [phone] -- [facility] Pending - Request Sent N/A [address] [address] [phone] -- [facility])Pending - Request Sent N/A [address] [facility] [phone] -- Current Capacity last updated by Maria L Del Rosario on 06/10/2022 1047 [address] [facility] Pending - Request Sent N/A [address] [facility] [address] [phone] -- [facility] Declined Facility cannot provide for patient's needs, Facility unable to provide dialysis services N/A [address] [facility] [id number] [facility] Declined Facility cannot provide for patient's needs, Unable to provide dialysis N/A [address] [facility] [address] [phone] -- [facility] Declined Facility cannot provide for patient's needs N/A [address] [facility] [address] [phone] -- Internal Comment last updated by Chidi Martins 08/31/2022 1442 Paul [phone] called; facility unable to accept [facility] Declined Facility full N/A [address] [facility] [address] [phone] -- Internal Comment last updated by Chidi Martins 08/31/2022 1441 Rec'd call from Marisa; facility does not have bed availability Dialysis/Infusion Service Provider Request Status Selected Services Address Phone Fax Patient Preferred [facility] Pending - Request Sent N/A [address] [place] [phone] -- If Medicare-3 day qualifying stay verified: Yes monitoring facility responses Comments/changes: Name: NIMO Delatorre Phone: [phone] * Vanessa Blakely SLP - 08/31/2022 2:20 PM CDT [facility] Department of Physical Medicine & Rehabilitation Progress Note Patient: Kirsty [facility] Record Number: [id number] Date of : 1940 Age: [age] year old [facility] attempted to complete MBS this pm, however Radiology reported that the Pt was in HD at the timetransport attempted to retrieve her for the exam. [facility] will attempt to schedule and complete exam tomorrow (09/01). Vanessa Barr M.S., [facility] Speech Language Pathologist [phone] * Gunjan Kelly RD/DENEEN - 08/31/2022 2:18 PM CDT Nutrition Re-Assessment Brief Synopsis: Patient is at Nutrition Risk; Specific criteria can be found in assessment below Nutrition Plan: NPO +TF Nepro at 40 ml/hr. Provides 1728 kcal, 78 g protein, 155 g carbohydrate, 698 ml free water. +100 ml q4 hrs free water flush or per MD if not on additional fluids Recommendations to Physician: See recs above Alter Miralax to PRN Comments: Pt scheduled for reassessment. Pt on nasal cannula. Pt receiving HD; R IJ CVC placed 08/23,replaced by permcath on 08/25 per MD notes. DUF today; 3,000mL of UF noted. Pt remains NPO with TFinfusing at goal rate, see above. Plan for MBS tomorrow. +BM x2 reported 08/30 - loose stool noted,see recs above. Will continue to follow. Assessment: Med/Surg History and Clinical Diagnoses: past medical history of HTN, CKD3, Morphea and osteopenia transferred from [facility] to [facility] Neuro ICU for pontine intraparenchymal hemorrhage. Diet order accuracy Current diet order: NPO Current tube feeding order: Nepro at 40mL/hr Nutrition recommendation: agree with current nutrition order P.O.Intake for the past 48 hrs:No data recorded Supplement(s) Consumed- Last 48 hours None Food Allergies: No known food allergies GI Concerns: None Chewing/Swallowing: Dysphagia (NPO with TF) Pain affecting intake: No Admission weight: Weight: 167 lb 8.8 oz (76 kg) (08/15/22 0315) Recent Weights/Methods 08/24/2022205408/25/2022 0400 08/26/2022 0330 08/27/2022 0400 08/27/2022 1800 08/29/2022 0540 08/30/2022 0400 08/31/2022 0400 Weight: -- 185 lb 3 oz (84 kg) 181 lb 14.1 oz (82.5 kg) 185 lb 3 oz (84 kg) -- 168 lb (76.2 kg) 166lb 6.4 oz (75.5 kg) 166 lb 8 oz (75.5 kg) Weight Method (Utilize Scales): Bedscale -- Bedscale Bedscale Bedscale Bedscale -- Bedscale BMI: Body mass index is 25.32 kg/m??. BMI Range: Overweight Wt Comments: Wt appears to fluctuate - possibly due to faulty bedscale or fluid retention Height: 5' 7.99 (172.7 cm) IBW/lb (Calculated) Female: 139.96, Laboratory values reviewed. Recent Labs Component Name 08/31/22 0903 08/30/22 0420 08/29/22 0204 08/19/22 2100 08/19/22 1056 08/18/22 1011 08/17/22 0405 08/15/22 0339 03/09/22 1312 BUN 45* 73* 56* - 66* - 58* - 65* CREATININE 2.66* 3.44* 2.98* - 4.65* - 4.22* - 2.74* NA 135* 139 138 - 127* - 134* - - POTASSIUM 4.0 3.7 3.8 - 4.0 - 3.0* - 3.9 CL 101 104 101 - 99 - 105 - - CO2 26 25 26 - 17* - 16* - 21 GLUCOSE 135* 133* 136* - 100 - 105 - 99 CALCIUM 9.3 9.2 9.1 - 8.6 - 8.7 - 8.7 PROT - - - - 4.9* - 5.1* - - ALB 2.5* 2.4* 2.6* - - - 2.8* - - ALKPHOS - - - - - - - - 72 ALT - - - - - - - - 12 AST - - - - - - - - 14 ANIONGAP 12 14 15 - 15 - 16 - - BCR 17 21 19 - 14 - 14 - - OSMOLALITY 294 311* 304* - 283 - 295 - - EGFR 18* 13* 15* - 9* - 10* - 16* EGFRAFR - - - - - - - - 18* - = values in this interval not displayed. Medications noted. Current Facility-Administered Medications Medication ??? 0.9% NaCl injection 3 mL And ??? 0.9% NaCl injection 1-10 mL ??? acetaminophen (Tylenol) tablet 500 mg ??? albuterol HFA (Proventil; Ventolin; Proair) 108 (90 Base) MCG/ACT inhaler 2 puff ??? albuterol-ipratropium (Duo-Neb) nebulizer solution 3 mL ??? amLODIPine (Norvasc) tablet 10 mg ??? cloNIDine (Catapres) tablet 0.3 mg ??? epoetin deyanira-EPBX (Retacrit) injection 7,000 Units ??? heparin injection 5,000 Units ??? hydrALAZINE (Apresoline) injection 15 mg ??? hydrALAZINE (Apresoline) tablet 100 mg ??? labetalol (Normodyne; Trandate) injection 20 mg ??? labetalol (Normodyne; Trandate) tablet 200 mg ??? losartan (Cozaar) tablet 100 mg ??? polyethylene glycol 3350 (Miralax) packet 17 g ??? senna (Senokot) tablet 8.6 mg Skin/Wound: sacral ulcer (reddened area) Estimated Energy Needs: KCAL: 1900 (25kcal/kg of ABW) Protein (g): 76 (1g/kg of ABW) Fluid (ml): 1 ml/kcal Needs based on: Kcal/kg- (Comment) (ABW = 76kg) Recommended Access Route: PO Education needed: Stroke Nutrition Therapy Education Provided: Yes Expected level of compliance: Good Nutrition Care Process (1) Nutrition Diagnostic Statement: Inadequate oral intake related to:: decreased ability to consume or tolerate food and/or fluids due to illness as evidenced by:: oral intake insufficient to meet estimated requirements Nutrition Diagnostic Statement Progress: Nutrition problem continues Nutrition Intervention: Enteral nutrition: Monitoring: TF, BM, labs, meds, weight Evaluation: Nutrition Goal: Total intake will meet estimated nutrient needs Nutrition Goal Timeframe: Throughout stay Nutrition Goal Progress: Continue with current goal Gunjan Kelly RDN, LDN Ascom [id number] * Lore Vazquez RN - 08/31/2022 1:10 PM CDT REPORT BEFORE DIALYSIS Diagnosis (TOÑA/CRF): TOÑA on CKD5 Non-Renal Diagnosis: ARF Isolation: No active isolations Does patient have signs or symptoms of respiratory infection (fever, cough, shortness of breath): SOB Allergies: Allergies Allergen Reactions ??? Ramipril Other Other reaction(s): Other (See Comments) Kidney Damage Kidney Damage Code Status: Full Orientation Status: A&Ox 4, Slurry speach On telemetry/rhythm: No Oxygen: 5L Given any medications: No Need for pain medications: No Blood pressure issues: HTN On any drips: No Is patient diabetic: No Any labs to draw: No Any other procedures today: No Any concerns about this patient: Pending swallow eval Any medications to be given with dialysis: Heparin - Epoetin Access: Tunneled HD CVC - RIJ * Chrissie Johns - 08/31/2022 12:33 PM CDT Images from the original note were not included. Kidney Navigator Note UPDATE CKD pt, following for outpatient dialysis needs. Referral sent to dialysis clinic admissions for acceptance and approval. Placement pending a confirmed treatment schedule and MAY take 2-3 business days. Will continue to follow and update. Chrissie Johns Dialysis Navigator [facility] P: [phone] Asom: [phone] 08/31/2022 12:34 PM UPDATE: Pt has tentative HD schedule at [facility], 2nd shift. Pending hemodialysis flowsheets,Hep B total Core, and medical clearance. Flowsheets will be faxed, Dr. Harrell is aware of Hep B total Core order needed. Will continue to update. * Josh Harrell MD - 08/31/2022 11:54 AM CDT Nephrology Progress Note 08/31/2022 11:58 AM Patient Name: Kirsty Rea (81 year old) Room Number: 523/01 Attending: Almaz Patel MD Hospital Day: 16 81 F h/o HTN, CKD stage 5 presented from healthcare facility with 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 Her hosp stay c/b acute hypoxic respiratory failure and acute renal failure which required initiation of intermittent hemodialysis.Initially she was on 15 L/min and now on 5 L/min.Also suspicion of Aspn PNA. Subjective: Interval history: - NAEON, feels ok, no cp, still sob, on 5 L O2 Objective: Patient Vitals for the past 6 hrs: Temp Pulse Resp BP 08/31/22 0825 98.1 ??F (36.7 ??C) 83 20 151/70 Intake/Output Summary (Last 24 hours) at 08/31/2022 1158 Last data filed at 08/31/2022 0549 Gross per 24 hour Intake 861 ml Output 3000 ml Net -2139 ml Physical Exam General: comfortable HENT: NC/AT Eyes: Anicteric. Non-injected. Chest: Reduced breath sounds RLL. Permcath at right chest. Cardiovascular: RRR. No murmurs, rubs, or gallops Abdomen: Soft. NT/ND. Normal BS+. : Quijano catheter in place Extremities: No signs of clubbing, cyanosis, or edema. Skin: Warm. Dry. Neurological: AO x 2-3;Moves all extremities spontaneously without issue. No focal deficits. Psych: Appropriate mood and affect Medications SCHEDULED MEDICATIONS: 0.9% NaCl injection 3 mL, Intracatheter, q8h amLODIPine (Norvasc) tablet 10 mg, Enteral Tube, AT BEDTIME cloNIDine (Catapres) tablet 0.3 mg, Enteral Tube, TID epoetin deyanira-EPBX (Retacrit) injection 7,000 Units, Subcutaneous, q7 days heparin injection 5,000 Units, Subcutaneous, TID hydrALAZINE (Apresoline) tablet 100 mg, Enteral Tube, TID labetalol (Normodyne; Trandate) tablet 200 mg, Enteral Tube, q8h losartan (Cozaar) tablet 100 mg, Enteral Tube, QDAY ?? polyethylene glycol 3350 (Miralax) packet 17 g, Enteral Tube, QDAY ?? CONTINUOUS MEDICATIONS: PRN MEDICATIONS: 0.9% NaCl injection 1-10 mL, Intracatheter, PRN acetaminophen (Tylenol) tablet 500 mg, Enteral Tube, q4h PRN albuterol HFA (Proventil; Ventolin; Proair) 108 (90 Base) MCG/ACT inhaler 2 puff, Inhalation, q6h PRN albuterol-ipratropium (Duo-Neb) nebulizer solution 3 mL, Inhalation, q4h PRN hydrALAZINE (Apresoline) injection 15 mg, Intravenous, q4h PRN labetalol (Normodyne; Trandate) injection 20 mg, Intravenous, q2h PRN ?? senna (Senokot) tablet 8.6 mg, Enteral Tube, QDAY PRN Data Review Recent Labs Component Name 08/30/22 0420 08/29/22 0204 08/28/22 0416 WBC 9.1 8.3 8.5 HGB 7.2* 6.5* 7.1* HCT 22.6* 20.0* 21.9* PLTCOUNT 200 189 197 Recent Labs Component Name 08/31/22 0903 08/15/22 0339 03/09/22 1312 SODIUM - - 140 POTASSIUM 4.0 - 3.9 CHLORIDE - - 109 CO2 26 - 21 BUN 45* - 65* CREATININE 2.66* - 2.74* CALCIUM 9.3 - 8.7 ALBUMIN - - 3.6 ALT - - 12 AST - - 14 GLUCOSE 135* - 99 - = values in this interval not displayed. Recent Labs Component Name 08/27/22 0439 08/26/22 0330 08/25/22 0338 INR 0.9 1.0 0.9 Microbiology: [facility] Imaging: [facility]ed [facility] Assessment and Plan: #TOÑA on CKD5, now ESRD # Acute resp failure 2/2 possible aspiration and Pulm congestion - Most likely initially prerenal in setting of vomiting, diuretic use prior to presentation later likely developed ATN with oligo-anuria - Baseline Cr around 3.3 since 04/2022; CKD 2/2 HTN, ECHO EF 60%, IVC > 2.1 cm with RA ~ 8 mm , I/o not documented, strict I/Os - Sees nephrology (Dr. Reyes) as outpatient; recent biopsy due to nephrotic range proteinuria that noted hypertensive nephrosclerosis - R IJ CVC placed 08/23,replaced by permcath on 08/25 - Recent CT chest report followed by Repeat CXR noted - Rt pl effusion> Lt ? Pulm cons for thoracentesis - will DUF today, then plan iHD tomorrow. - D/c planning: TTS [facility], Dr Reyes ?? #Hypertension - elevated, c/w Hydral 100 tid, clonidine 0.3mg tid, labetolol 200mg tid, amlod 10mg, losartan 50 mg, suggest transition PO clonidine to clond patch ?? #Normocytic Anemia - Yesterday's labs, Hb 7.2 - Iron studies ordered this hospitalization: - Iron 77 - TSat 31% - TIBC 248 - Ferritin 180 - c/w Retacrit 7000U weekly DC planning: Pt follows Dr. Reyes in [place], family wants pt to be in [facility]. ?? Patient will be seen and discussed with attending physician, Dr. Cintron. Josh Harrell MD Nephrology fellow 08/31/2022 11:58 AM * Almaz Patel MD - 08/31/2022 11:52 AM CDT [facility] Progress Note Kirsty Rea is a 81 year old female with a history of hypertension, CKD V not on permanent dialysis who presented with pontine intraparenchymal hemorrhage. She was in the neuro ICU where she developed acute hypoxic respiratory failure thought due to aspiration PNA plus volume overload but is nowon the floor and oxygen needs are improving. Now on HD. Subjective: She feels well, she is hopeful she will pass her MBS today and be able to eat food. No cp. Intermittent SOB still but overall thinks she is ok, no cough. No n/v. Objective: BP 151/70 Pulse 83 Temp 98.1 ??F (36.7 ??C) (Oral) Resp 20 Ht 1.727 m (5' 7.99 ) Wt 75.5kg (166 lb 8 oz) SpO2 98% Physical Exam Alert, no distress Oral mucosa moist, NG in place Heart rrr Lungs with bibasilar mild crackles Abdomen soft and NT No pitting edema MEDICATIONS FOR CURRENT ENCOUNTER: SCHEDULED MEDICATIONS: 0.9% NaCl injection 3 mL, Intracatheter, q8h amLODIPine (Norvasc) tablet 10 mg, Enteral Tube, AT BEDTIME cloNIDine (Catapres) tablet 0.3 mg, Enteral Tube, TID epoetin deyanira-EPBX (Retacrit) injection 7,000 Units, Subcutaneous, q7 days heparin injection 5,000 Units, Subcutaneous, TID hydrALAZINE (Apresoline) tablet 100 mg, Enteral Tube, TID labetalol (Normodyne; Trandate) tablet 200 mg, Enteral Tube, q8h losartan (Cozaar) tablet 100 mg, Enteral Tube, QDAY polyethylene glycol 3350 (Miralax) packet 17 g, Enteral Tube, QDAY CONTINUOUS MEDICATIONS: PRN MEDICATIONS: 0.9% NaCl injection 1-10 mL, Intracatheter, PRN acetaminophen (Tylenol) tablet 500 mg, Enteral Tube, q4h PRN albuterol HFA (Proventil; Ventolin; Proair) 108 (90 Base) MCG/ACT inhaler 2 puff, Inhalation, q6h PRN albuterol-ipratropium (Duo-Neb) nebulizer solution 3 mL, Inhalation, q4h PRN hydrALAZINE (Apresoline) injection 15 mg, Intravenous, q4h PRN labetalol (Normodyne; Trandate) injection 20 mg, Intravenous, q2h PRN senna (Senokot) tablet 8.6 mg, Enteral Tube, QDAY PRN Relevant labs [facility] Recent Labs Component Name 08/30/2241908/29/224 08/28/22 0416 WBC 9.1 8.3 8.5 RBC 2.51* 2.25* 2.44* HGB 7.2* 6.5* 7.1* HCT 22.6* 20.0* 21.9* MCV 90.0 88.9 89.8 PLTCOUNT 200 189 197 Recent Labs Component Name 08/31/22 0903 08/30/22 0420 08/29/22 0204 08/15/22 0339 03/09/22 1312 SODIUM - - - - 140 POTASSIUM 4.0 3.7 3.8 - 3.9 CHLORIDE - - - - 109 CO2 26 25 26 - 21 GLUCOSE 135* 133* 136* - 99 BUN 45* 73* 56* - 65* CREATININE 2.66* 3.44* 2.98* - 2.74* ALBUMIN - - - - 3.6 CALCIUM 9.3 9.2 9.1 - 8.7 AST - - - - 14 ALT - - - - 12 - = values in this interval not displayed. Relevant imaging reviewed in [facility] CXR with improving congestion Assessment/Plan: Pontine intraparenchymal hemorrhage Hypertensive emergency: - NSGY and Neurology following - medical management, goal SBP <180 - continue amlodipine, losartan, labetalol, hydralazine and clonidine scheduled; suspect will see some more improvement with HD and volume removal - IV hydralazine or labetalol PRN for SBP >180 Acute hypoxic respiratory failure due to pulmonary edema and aspiration pneumonia: - HD for volume - finished pip/tazo for aspiration PNA - nocturnal desaturation study pending (not on CPAP qhs anymore) CKD V with acute injury now needing HD: - temp cath in place - Nephrology following for HD Anemia: - hgb 7.2 today - EPO per Nephro - no signs of bleeding - iron panel good this admission, no need for iron - will check b12 and folate Pharyngeal dysphagia: - repeat MBS today - barrier to dc is NG tube for TF Lines: PIV, temp dialysis line, NG Diet: strict NPO, TF through NG Abx end date: NA Consults: Neuro, NSGY, Nephro DVT prophylaxis: Heparin Code status: Full Disposition:Inpatient for ongoing care Almaz Patel MD [facility] 08/31/2022 * Argenis Saunders COTA - 08/31/2022 11:10 AM CDT [facility] Department of Physical Medicine & Rehabilitation Progress Note Patient: Kirsty [facility] Record Number: [id number] Date of : 1940 Age: [age] year old 08/31/22 1110 Missed Visit Missed Visit RN Cancel GERA Morales states patient just had a bath and is leaving for a swallow evaluation. RN states patientis also going from the MBS to HD this afternoon. Will continue to follow up as schedule allows. * Chidi Martins - 08/31/2022 10:57 AM CDT Images from the original note were not included. Spoke with Agnes (daughter) She agrees with the facility options presented Pt needs updated PT/OT notes for insurance authorization UPDATE 08/31/2022 1:06 PM Spoke to Charlotte ([facility]) Needs updated therapy notes for insurance Clinical team notified Continued Care and Services - Admitted Since 08/15/2022 Destination Service Provider Request Status Selected Services Address Phone Fax Patient Preferred [facility] Accepted N/A [address], [facility] [address] [phone] -- Internal Comment last updated by Chidi Martins 08/31/2022 1000 Spoke with Petar [phone] Facility can accept and transport Pt to [facility] Considering Need insurance authorization [id number] [address], [facility] [address] [phone] -- Internal Comment last updated by Chidi Martins 08/31/2022 1008 Left VM for Charlotte HYATT (Liaison) [facility] Pending - Request Sent N/A [address] [facility] [address] [phone] -- [facility] Pending - Request Sent N/A [address] [address] [phone] -- [facility])Pending - Request Sent N/A [address] [facility] [phone] -- Current Capacity last updated by Maria L Del Rosario on 06/10/2022 1047 [address] [facility] Pending - Request Sent N/A [address] [facility] [address] [phone] -- [facility] Declined Facility cannot provide for patient's needs, Facility unable to provide dialysis services N/A [address] [facility] [address] [phone] [facility] Declined Facility cannot provide for patient's needs, Unable to provide dialysis N/A [address], [facility] [address] [phone] -- [facility] Declined Facility cannot provide for patient's needs N/A [address] [facility] [facility] [address] [phone] -- Internal Comment last updated by Chidi Martins 08/31/2022 1442 Paul [phone] called; facility unable to accept [facility] Declined Facility full N/A [address], [place] [facility] [address] [phone] -- Internal Comment last updated by Chidi Martins 08/31/2022 1441 Rec'd call from Marisa; facility does not have bed availability Dialysis/Infusion Service Provider Request Status Selected Services Address Phone Fax Patient Preferred [facility] Pending - Request Sent N/A [address] [place] [phone] -- NIMO Kwok, TEO [employer] [phone] 08/31/2022 10:57 AM * Chidi Martins - 08/31/2022 9:57 AM CDT Images from the original note were not included. Chart reviewed Medically ready to transition to next level of car Spoke with Petar [facility] can accept and transport Pt to dialysis Spoke with Stacy Sheppard (daughter) [phone] Wants SW to follow up [facility] re[facility]; Left VM for liaison Left Agnes Monroy (daughter) [phone] Continued Care and Services - Admitted Since 08/15/2022 Destination Service Provider Request Status Selected Services Address Phone Fax Patient Preferred [facility] Accepted N/A [address], [facility] [address] [phone] -- Internal Comment last updated by Chidi Martins 08/31/2022 1000 Spoke with Petar [phone] Facility can accept and transport Pt to dialysis [facility] Pending - Request Sent N/A [id number], [facility] [address] [phone] -- Internal Comment last updated by Chidi Martins 08/31/2022 1008 Left VM for Charlotte ([place]) [facility] Pending - Request Sent N/A [address] [facility] [place] [address] [phone] -- [facility] Pending - Request Sent N/A [address] [address] [phone] -- [facility])Pending - Request Sent N/A [address] [facility] [phone] -- Current Capacity last updated by Maria L Del Rosario on 06/10/2022 1047 119 [facility] Pending - Request Sent N/A [address] [address] [facility] [facility] [address] [phone] -- [facility] Pending - Request Sent N/A [address] [facility] [address] [phone] -- [facility] Pending - Request Sent N/A [address] [place] [place] [address] [phone] -- [facility] Declined Facility cannot provide for patient's needs, Facility unable to provide dialysis services N/A [address] [facility] [phone] [facility] Declined Facility cannot provide for patient's needs, Unable to provide dialysis N/A [address] [facility] [address] [phone] -- NIMO Kwok, TEO Stroke [employer] Commander [phone] 08/31/2022 9:59 AM * Vanessa Blakely, JUDIT - 08/31/2022 9:41 AM CDT [facility] Physical Medicine and Rehabilitation Swallow Treatment Patient: Kirsty Rea Med Record Number: [id number] Date of : 1940 Age: [age] year old PPE: PPE worn by staff: mask - N95;gloves PPE worn by patient: gown - patient, clean Impressions: Pt presents with continued concern for pharyngeal dysphagia with clinical signs of aspiration following nectar thickened liquid trials provided during HARBORMASTER's bedside assessment. Given Pt's 02 needs have decreased, will attempt to complete MBS today to further evaluate Pt's swallow function and guide PO diet recommendations. Recommendations: Diet Liquids Recommendation: NPO Diet Solids Recommendation: NPO Recommended Form of Meds: NPO;Feeding Tube Recommended Tests/Consults: Recommendations: NPO;With Alternative Nutrition;With Ice Chips PRN;Modified Barium Swallow Study Discharge Recommendations: Patient will benefit from intense 3 hour per day multidisciplinary inpatient therapies Speech therapy is recommended to improve swallow function. SUBJECTIVE: Patient Goals: To eat/drink Pain Assessment: Pain Rating Score #: 0 Follow-up for pain: No follow-up for pain indicated and patient agreed to proceed with treatment OBJECTIVE: Level of Consciousness: alert Positioning: Upright in bed Respiratory Status: nasal cannula: 5lpm Swallow Trials: Pelion Thick Liquid: Presentation: Cup-Assisted;Spoon-Assisted Oral: Within Functional Limits Pharyngeal: Delayed Swallow;Decreased Laryngeal Elevation;Cough - Immediate Assessment: Risk For Aspiration: Moderate Primary Diagnostic Impression - Oral: No dysphagia Primary Diagnostic Impression - Pharyngeal: Moderate Treatment/Education/Interventions: While performing HARBORMASTER, Patient was instructed in: results of swallow evaluation and goals of treatment . Patient demonstrated Good understanding of instructions given. Physician and Nurse contacted regarding results of treatment session. INFORMED CONSENT TO TREATMENT: Plan of care including recommended therapy, goals and frequency, discussed with patient who understands and agrees to proceed. Short Term Goals Patient will participate in an instrumental swallow assessment as appropriate. Intermediate Goal (s): Patient to be independent/baseline with functional mobility and self care and be able to safely discharge to prior level of care. Plan: Continue NPO with plan for MBS today Vanessa Barr M.S., [facility] Speech Language Pathologist [phone] * Josh Harrell MD - 08/30/2022 12:50 PM CDT Nephrology Progress Note 08/30/2022 12:50 PM Patient Name: Kirsty Rea (81 year old) Room Number: 523/01 Attending: Jero Orozco MD Hospital Day: 15 Subjective: Interval history: - improved O2 saturations,received 1 PRBC - now on O2 5- L /min - denies cp/n/v, pt seen during dialysis Objective: Patient Vitals for the past 6 hrs: Temp Pulse Resp BP 08/30/22 1213 97.9 ??F (36.6 ??C) 78 -- 162/69 08/30/22 1210 -- 78 -- 165/69 08/30/22 1200 -- 78 -- 161/67 08/30/22 1145 -- 79 -- 171/66 08/30/22 1130 -- 77 -- 153/64 08/30/22 1115 -- 78 -- 162/65 08/30/22 1100 -- 80 -- 158/67 08/30/22 1045 -- 77 -- 157/68 08/30/22 1030 -- 77 -- -- 08/30/22 1015 -- 80 -- 158/63 08/30/22 1000 -- 84 -- 155/67 08/30/22 0947 -- 84 20 142/63 08/30/22 0915 -- 84 -- 148/66 08/30/22 0859 -- 87 -- 172/66 08/30/22 0851 -- -- -- (!) 182/64 08/30/22 0840 -- -- -- (!) 170/111 08/30/22 0835 98.9 ??F (37.2 ??C) 90 22 (!) 181/59 08/30/22 0729 -- -- -- 148/51 Intake/Output Summary (Last 24 hours) at 08/30/2022 1250 Last data filed at 08/30/2022 1213 Gross per 24 hour Intake 1463 ml Output 3000 ml Net -1537 ml Physical Exam General: comfortable HENT: NC/AT Eyes: Anicteric. Non-injected. Chest: Breath sounds decreased (R>L) without significant change from prior. No increased work ofbreathing on ventimask. Permcath at right chest. Cardiovascular: RRR. No murmurs, rubs, or gallops Abdomen: Soft. NT/ND. Normal BS+. : Quijano catheter in place Extremities: No signs of clubbing, cyanosis, or edema. Skin: Warm. Dry. Neurological: AOx2-3; conversational but has some difficulty communicating with mask on. Moves all extremities spontaneously without issue. No focal deficits. Psych: Appropriate mood and affect Medications SCHEDULED MEDICATIONS: 0.9% NaCl injection 3 mL, Intracatheter, q8h amLODIPine (Norvasc) tablet 10 mg, Enteral Tube, AT BEDTIME cloNIDine (Catapres) tablet 0.3 mg, Enteral Tube, TID epoetin deyanira-EPBX (Retacrit) injection 7,000 Units, Subcutaneous, q7 days heparin injection 5,000 Units, Subcutaneous, TID hydrALAZINE (Apresoline) tablet 100 mg, Enteral Tube, TID labetalol (Normodyne; Trandate) tablet 200 mg, Enteral Tube, q8h losartan (Cozaar) tablet 100 mg, Enteral Tube, QDAY ?? polyethylene glycol 3350 (Miralax) packet 17 g, Enteral Tube, QDAY ?? CONTINUOUS MEDICATIONS: PRN MEDICATIONS: 0.9% NaCl injection 1-10 mL, Intracatheter, PRN acetaminophen (Tylenol) tablet 500 mg, Enteral Tube, q4h PRN albuterol HFA (Proventil; Ventolin; Proair) 108 (90 Base) MCG/ACT inhaler 2 puff, Inhalation, q6h PRN albuterol-ipratropium (Duo-Neb) nebulizer solution 3 mL, Inhalation, q4h PRN hydrALAZINE (Apresoline) injection 15 mg, Intravenous, q4h PRN labetalol (Normodyne; Trandate) injection 20 mg, Intravenous, q2h PRN ?? senna (Senokot) tablet 8.6 mg, Enteral Tube, QDAY PRN Data Review Recent Labs Component Name 08/30/22 0420 08/29/22 0204 08/28/22 0416 WBC 9.1 8.3 8.5 HGB 7.2* 6.5* 7.1* HCT 22.6* 20.0* 21.9* PLTCOUNT 200 189 197 Recent Labs Component Name 08/30/22 0420 08/15/22 0339 03/09/22 1312 SODIUM - - 140 POTASSIUM 3.7 - 3.9 CHLORIDE - - 109 CO2 25 - 21 BUN 73* - 65* CREATININE 3.44* - 2.74* CALCIUM 9.2 - 8.7 ALBUMIN - - 3.6 ALT - - 12 AST - - 14 GLUCOSE 133* - 99 - = values in this interval not displayed. Recent Labs Component Name 08/27/2243808/26/2232908/25/22 0338 INR 0.9 1.0 0.9 Microbiology: [facility] Imaging: [facility]ed in [facility] Assessment and Plan: #TOÑA on CKD5 #Non-Anion Gap Metabolic Acidosis # Acute resp failure 2/2 possible aspiration and Pulm congestion - Most likely prerenal in setting of vomiting, diuretic use prior to presentation - Baseline Cr around 3.3 since 04/2022; CKD 2/2 HTN, ECHO EF 60%, IVC > 2.1 cm with RA ~ 8 mm , I/o not documented, strict I/Os - Sees nephrology (Dr. 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 Repeat CXR today. ?? #Hypertension - controlled on Hydral 100 tid, clonidine 0.3mg tid, labetolol 200mg tid, amlod 10mg, losartan 50 mg? #Normocytic Anemia - Hb 7.2 - Iron studies ordered this hospitalization: - Iron 77 - TSat 31% - TIBC 248 - Ferritin 180 - c/w Retacrit 7000U weekly - Consider IV Iron 200mg (can give up to 5 doses over 14 day period; recommend up to 5 days worth or throughout remainder of inpatient stay if shorter than 5 days) - For transfusion today per primary ?? Patient will be seen and discussed with attending physician, Dr. Cintron. Josh Harrell MD 08/30/2022 Nephrology fellow 08/30/2022 12:50 PM * Alena Lugo, RN - 08/30/2022 12:26 PM CDT Hemodialysis Nursing Documentation Duration of treatment: 3.5 hr Access type: R IJ Tunneled Total ultrafiltration volume: 3000 mls Medications given during the treatment: none Comments and observations: Resp distres upon arriva. Breathing tx done. With fluid removal breathing improves. Lungs course with wheezes. Problem: Hemodynamic Status/Cardiac Output Goal: Patient has stable vital signs and fluid balance Outcome: Progressing Problem: Fluid and Electrolyte Imbalance Goal: Fluid and electrolyte balance are achieved/maintained Outcome: Progressing Problem: Infection Goal: Signs and symptoms of infections are decreased or avoided Outcome: Progressing * Kaley Hernandez OT - 08/30/2022 10:58 AM CDT [facility] Department of Physical Medicine & Rehabilitation Progress Note Patient: Kirsty Rea [facility] Record Number: [id number] Date of : 1940 Age: [age] year old 08/30/22 1058 Missed Visit Missed Visit Procedure Off Floor Patient off the floor Dialysis * Chidi Martins - 08/30/2022 10:14 AM CDT Images from the original note were not included. Chart Review Medically ready to transition to next level of care Post acute recommendation:??intense 3 hour per day multidisciplinary inpatient therapies?? Post acute recommendation:??[facility] Insurance authorization is required UPDATE 08/30/2022 1:28 PM New dialysis patient [place] unable to provide dialysis services Additional referrals sent Continued Care and Services - Admitted Since 08/15/2022 Destination Service Provider Request Status Selected Services Address Phone Fax Patient Preferred [facility] Pending - Request Sent N/A [id number] [address], [facility] [address] [phone] -- [facility] Pending - Request Sent N/A [address] [facility] [address] [phone] -- [facility] Pending - Request Sent N/A 393 [facility] [address] [phone] -- [facility] Pending - Request Sent N/A [address] [address] [phone] -- [facility])Pending - Request Sent N/A [address] [facility] [phone] -- Current Capacity last updated by Maria L Del Rosario on 06/10/2022 1047 119 [facility] Pending - Request Sent N/A [address] [facility] [facility] [facility] [address] [phone] -- [facility] Pending - Request Sent N/A [address] [facility] [address] [phone] -- [facility] Pending - Request Sent N/A [address] [place] [address] [phone] -- [facility] Declined Facility cannot provide for patient's needs, Facility unable to provide dialysis services N/A [address] [facility] [phone] [facility] Declined Facility cannot provide for patient's needs, Unable to provide dialysis N/A [address] [facility] [address] -- NIMO Kwok, TEO Bomb Squad Commander [phone] 08/30/2022 10:15 AM * Jero Orozco MD - 08/30/2022 10:05 AM CDT GENERAL INTERNAL MEDICINE Progress note 08/30/2022 10:05 AM Admit Date: 08/15/2022 Subjective: Ms. Rea reports that some dyspnea today while down on the dialysis unit. She does not endorse any chest pain or palpitations. She does not endorse any other new concerns at this time; no fevers orchills. No acute events reported overnight per nursing staff Medications: MAR reviewed Physical Examination: BP 155/67 Pulse 84 Temp 98.9 ??F (37.2 ??C) (Oral) Resp 20 Ht 1.727 m (5' 7.99 ) Wt 75.5 kg (166 lb 6.4 oz) SpO2 99% GEN: NAD, resting in bed on the dialysis unit. RESP: Clear to auscultation bilaterally. No wheezing or crackles noted. CARDIAC: Regular rate and rhythm. No murmurs, rubs, or gallops noted. GI: Abdomen soft, non tender, and non-distended. Bowel sounds noted. 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 She was transferred to [facility] on August 15 and was initially managed in the neuro ICU. Unfortunately, her hospitalization was complicated by acute hypoxic respiratory failure and acute renal failure which required initiation of intermittent hemodialysis. She clinically improved and was felt roxi appropriate for transfer to the general medical floor in the evening August 27. Plan: # Pontine intraparenchymal hemorrhage - She was evaluated by Neurology and Neurosurgery. No plan for surgical intervention. Continue medical management. - Per neurology recommendations systolic blood pressure goal is less than 180 mmHg. # Hypertensive emergency - We will continue amlodipine, losartan, labetalol, hydralazine, and clonidine. - We will provide IV hydralazine or labetalol as needed for systolic blood pressure greater than 180 mmHg. # Acute hypoxic respiratory failure # Pulmonary edema, likely secondary to acute renal failure # Aspiration pneumonia - We will continue to provide supplemental oxygen as needed - We will follow for improvement in her oxygenation as her volume is better managed through hemodialysis. - will discuss with Neurology if she has a central lesion and must remain on CPAP q.h.s., if not, will consider nocturnal desaturation study and possibly wean from nighttime positive-pressure ventilation. - Of note she was previously treated with a five-day course of piperacillin/tazobactam for presumedaspiration pneumonia # Acute renal failure # Chronic kidney disease stage 5 - She required initiation of hemodialysis this during this hospitalization - Nephrology following, appreciate their assistance in helping her plan of care # Anemia - Suspect acute on chronic due to hospitalization and hx of CKD. - We will follow and provide RBCs as needed # Pharyngeal dysphagia - We appreciate the assistance of speech therapy and developing her plan of care - She should remain NPO and continue TF feeds to NG per most recent evaluation on August 26 DVT PPx: Heparin TID Jero Orozco MD General Internal Medicine 08/30/2022 10:05 AM * Alena Lugo RN - 08/30/2022 7:08 AM CDT REPORT BEFORE DIALYSIS Diagnosis (TOÑA/CRF): TOÑA Non-Renal Diagnosis:/ hx of HTN,??CKD stage IV-V,??morphea, who presented to [facility] on??08/15/22 as OSH transferred for management of pontine intraparenchimal bleed. Patient presented to OSH for nausea, vomiting and weakness. CTH at OSH showed pontine IPH measuring 9*8*10 mm without mass effec t.??Patient BP has been elevated during hospitalization and required IV anti- HTN. Also patient developed worsening dysphagia and she was choking on her PO medications and she was not able to tolerate PO intake so she missed PO anti-HTN meds. 08/22 the patient was found to be somnolent and with worsening CP and SOB, rapid response called and patient escalated to Non rebreather. Troponin/EKG were normal. Renal function test was unchanged. ABGs re-assuring. CTH with no acute changes. Her ABGs this AM were not concerning. Due to concerns of aortic dissection CT chest ordered which showed increased effusion on the right and concerning foraspiration pneumonia with no signs of dissection. Speech eval recommended NPO and patient missed her PO HTN meds. Nephrology consulted for worsening kidney function and worsening mental status and they will proceed with non-emergent HD. Today, patient transferred to the ICU for better control of her BP with drips, worsening mental status, and worsening hypoxia. On physical exam patient was AOx3 awake, alert and resonds to quesitons coherently. Her SpO2 was 92% on the non-rebreazer and other vitals were normal. Her labs today were significant for improving hyponatremia (130), High anion gap metabolic acidosis bicarb 16, A 2/ to uremia with Isolation: No active isolations Does patient have signs or symptoms of respiratory infection (fever, cough, shortness of breath): Allergies Allergen Reactions ??? Ramipril Other Other reaction(s): Other (See Comments) Kidney Damage Kidney Damage Code Status: full Orientation Status: x4 On telemetry/Rhythm: NSR Oxygen: RA Given any medications: labetalol Need for pain medications: machine deburrer Blood pressure issues: HTN On any drips: no Is patient diabetic: no Any labs to draw: no Any other procedures today: no Any concerns about this patient: no Any medications to be given with dialysis: no Due date of next Central Line Dressing change: Primary RN educated on Incapacitated Nurse: Report from: Andrew Gray RN Phone number: [phone] * Carly Cronin RN - 08/29/2022 6:38 PM CDT Problem: Fall Risk Goal: Fall risk and fall related injury risk are minimized (interventions related to the fall risk can be found in the flowsheet documentation) Outcome: Progressing Problem: Neurological Deficit Goal: Neurological status is stable or improving Outcome: Progressing Problem: Hemodynamic Status/Cardiac Output Goal: Patient has stable vital signs and fluid balance Outcome: Progressing Problem: Oxygenation/Respiratory Function Goal: Respiratory rate/effort will be within specified limits Outcome: Progressing Problem: Mobility Goal: Patient's mobility/activity will be maintained as optimum level for age, diagnosis and physical limitations Outcome: Progressing Goal: Continuum of care needs are further met through referral to outpatient services when appropriate. Outcome: Progressing Goal: Patient reports the ability to perform Activities of Daily Living. Outcome: Progressing Problem: Communication Impairment/Dysarthria Goal: Ability to express needs and understand communication Outcome: Progressing Problem: Nutrition Goal: Nutritional status is improving Outcome: Progressing Problem: Aspiration Precautions Goal: Patient's risk of aspiration is minimized Outcome: Progressing Problem: Glycemic Control Goal: Clinical indication of glycemia balance is achieved Outcome: Progressing Problem: Knowledge Deficit,Education,Discharge Plan Goal: The patient/family will understand cerebrovascular disease and its symptoms, treatment and management Outcome: Progressing Problem: Mobility Goal: STG - Patient will ambulate Outcome: Progressing Problem: Pain/Discomfort Goal: Patient exhibits reduced pain/discomfort as evidenced by pain scores Outcome: Progressing Goal: Patient uses pharmacological and non-pharmacological pain management strategies. Outcome: Progressing Goal: Patient verbalizes acceptable level of pain relief and ability to engage in desired activity. Outcome: Progressing Problem: Ineffective Airway Clearance Goal: Patent airway Outcome: Progressing Problem: Swallowing Goal: LTG - Patient will demonstrate safe swallowing Intervention/techniques Outcome: Progressing Goal: LTG - Patient will tolerate the least restrictive diet consistency to allow for safe consumption of daily meals Outcome: Progressing Goal: STG - Patient will complete swallowing exercises Outcome: Progressing Goal: STG - Patient will participate in instrumental assessment of swallowing as appropriate Outcome: Progressing Problem: Oral Intake: Inadequate oral intake Goal: Total intake will meet estimated nutrient needs Outcome: Progressing Problem: Fluid and Electrolyte Imbalance Goal: Fluid and electrolyte balance are achieved/maintained Outcome: Progressing Problem: Infection Goal: Signs and symptoms of infections are decreased or avoided Outcome: Progressing Problem: Skin Integrity Goal: Skin integrity is maintained or improved Outcome: Progressing Problem: Balance Goal: LTG - Patient will maintain balance to allow for safe mobility Outcome: Progressing * Darell Bernal RN - 08/29/2022 12:40 PM CDT Case Management Progress Note Anticipated level of care at discharge: Home, Acute Rehab Facility Discharge Plan: Patient is new to my service. Discharge needs dependent on response to clinical treatment and therapy recommendations. CM will continue to follow. Current recommendation is for acute rehab. Basic Needs Assessment (BNA) Score: 6 Anticipated Discharge Date: Anticipated Discharge Date: (TBD) Patient/Family provided with list of resources? Unknown Preferred Provider / High Quality Network List given?: Unknown Reason for provider choice: Pt. choice - Pt. choice Transportation at Discharge: Follow Up Appointment: Transportation to MD: Equipment at Home: Equipment at Home: Cane-Straight List DME patient requires but does not have: DME Provider: [facility] Screening: Medication affordability concerns: Auth Number (if required) NH: DME: Medications: Transportation: Name: Darell eBrnal RN Phone: [phone] * Jero Orozco MD - 08/29/2022 10:09 AM CDT GENERAL INTERNAL MEDICINE Progress note 08/29/2022 10:09 AM Admit Date: 08/15/2022 Subjective: Ms. Rea reports that she continues to feel well today. She does not endorse any dyspnea with hersupplemental oxygen in place. She does not endorse any new concerns at this time; no fevers, chills, angina, or palpitations. No acute events reported overnight per nursing staff Medications: MAR reviewed Physical Examination: BP (!) 183/57 Pulse 83 Temp 97.7 ??F (36.5 ??C) (Oral) Resp 18 Ht 1.727 m (5' 7.99 ) Wt 76.2 kg (168 lb) SpO2 94% GEN: NAD, resting comfotably bed. RESP: Clear to auscultation bilaterally. No wheezing or crackles noted. CARDIAC: Regular rate and rhythm. No murmurs, rubs, or gallops noted. GI: Abdomen soft, non tender, and non-distended. Bowel sounds noted. 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 She was transferred to [facility] on August 15 and was initially managed in the neuro ICU. Unfortunately, her hospitalization was complicated by acute hypoxic respiratory failure and acute renal failure which required initiation of intermittent hemodialysis. She clinically improved and was felt to be appropriate for transfer to the general medical floor in the evening August 27. Plan: # Pontine intraparenchymal hemorrhage - She was evaluated by Neurology and Neurosurgery. No plan for surgical intervention. Continue medical management. - Per neurology recommendations systolic blood pressure goal is less than 180 mmHg. # Hypertensive emergency - We will continue amlodipine, losartan, labetalol, hydralazine, and clonidine. - We will provide IV hydralazine or labetalol as needed for systolic blood pressure greater than 180 mmHg. # Acute hypoxic respiratory failure # Pulmonary edema, likely secondary to acute renal failure # Aspiration pneumonia - We will continue to provide supplemental oxygen as needed - We will follow for improvement in her oxygenation as her volume is better managed through hemodialysis. - We will continue CPAP q.h.s. - Of note she was previously treated with a five-day course of piperacillin/tazobactam for presumedaspiration pneumonia # Acute renal failure # Chronic kidney disease stage 5 - She required initiation of hemodialysis this during this hospitalization - Nephrology following, appreciate their assistance in helping her plan of care # Anemia - Suspect acute on chronic due to hospitalization and hx of CKD. - We will follow and provide RBCs as needed # Pharyngeal dysphagia - We appreciate assistance of speech therapy and developing her plan of care - She should remain NPO and continue TF feeds to NG per most recent evaluation on August 26 DVT PPx: Heparin TID Jero Orozco MD General Internal Medicine 08/29/2022 10:09 AM * Josh Harrell MD - 08/29/2022 10:09 AM CDT Nephrology Progress Note 08/29/2022 6:10 PM Patient Name: Kirsty Rea (81 year old) Room Number: 523/01 Attending: Jero Orozco MD Hospital Day: 14 Subjective: Interval history: - no acute events overnight, still on 15 L O2 - denies cp, but sob, no n/v/d Objective: Patient Vitals for the past 6 hrs: Temp Pulse BP BP Method 08/29/22 1645 98.4 ??F (36.9 ??C) 82 (!) 204/65 Automatic 08/29/22 1400 97.9 ??F (36.6 ??C) 66 150/57 -- 08/29/22 1301 98.1 ??F (36.7 ??C) 63 150/57 Automatic Intake/Output Summary (Last 24 hours) at 08/29/2022 1810 Last data filed at 08/29/2022 1400 Gross per 24 hour Intake 660 ml Output -- Net 660 ml Physical Exam General: Appears uncomfortable similar to prior days. Laying in bed with HOB elevated. HENT: NC/AT Eyes: Anicteric. Non-injected. Chest: Breath sounds decreased (R>L) without significant change from prior. No increased work ofbreathing on ventimask. Permcath at right chest. Cardiovascular: RRR. No murmurs, rubs, or gallops Abdomen: Soft. NT/ND. Normal BS+. : Quijano catheter in place Extremities: No signs of clubbing, cyanosis, or edema. Skin: Warm. Dry. Neurological: AOx2-3; conversational but has some difficulty communicating with mask on. Follows commands. Moves all extremities spontaneously without issue. No focal deficits. Psych: Appropriate mood and affect Medications SCHEDULED MEDICATIONS: 0.9% NaCl injection 3 mL, Intracatheter, q8h amLODIPine (Norvasc) tablet 10 mg, Enteral Tube, AT BEDTIME cloNIDine (Catapres) tablet 0.3 mg, Enteral Tube, TID epoetin deyanira-EPBX (Retacrit) injection 7,000 Units, Subcutaneous, q7 days heparin injection 5,000 Units, Subcutaneous, TID hydrALAZINE (Apresoline) tablet 100 mg, Enteral Tube, TID labetalol (Normodyne; Trandate) tablet 200 mg, Enteral Tube, q8h losartan (Cozaar) tablet 100 mg, Enteral Tube, QDAY ?? polyethylene glycol 3350 (Miralax) packet 17 g, Enteral Tube, QDAY ?? CONTINUOUS MEDICATIONS: PRN MEDICATIONS: 0.9% NaCl infusion rate and volume, Intravenous, Once PRN 0.9% NaCl injection 1-10 mL, Intracatheter, PRN acetaminophen (Tylenol) tablet 500 mg, Enteral Tube, q4h PRN albuterol HFA (Proventil; Ventolin; Proair) 108 (90 Base) MCG/ACT inhaler 2 puff, Inhalation, q6h PRN albuterol-ipratropium (Duo-Neb) nebulizer solution 3 mL, Inhalation, q4h PRN hydrALAZINE (Apresoline) injection 15 mg, Intravenous, q4h PRN labetalol (Normodyne; Trandate) injection 20 mg, Intravenous, q2h PRN ?? senna (Senokot) tablet 8.6 mg, Enteral Tube, QDAY PRN Data Review Recent Labs Component Name 08/29/2220308/28/2241508/27/22438 WBC 8.3 8.5 8.4 HGB 6.5* 7.1* 7.1* HCT 20.0* 21.9* 21.9* PLTCOUNT 189 197 193 Recent Labs Component Name 08/29/2220308/15/2233803/09/22 1312 SODIUM - - 140 POTASSIUM 3.8 - 3.9 CHLORIDE - - 109 CO2 26 - 21 BUN 56* - 65* CREATININE 2.98* - 2.74* CALCIUM 9.1 - 8.7 ALBUMIN - - 3.6 ALT - - 12 AST - - 14 GLUCOSE 136* - 99 - = values in this interval not displayed. Recent Labs Component Name 08/27/2243808/26/2232908/25/22337 INR 0.9 1.0 0.9 Microbiology: [facility] Imaging: [facility] Assessment and Plan: #TOÑA on CKD5 #Non-Anion Gap Metabolic Acidosis # Acute resp failure 2/2 possible aspiration and Pulm congestion - Most likely prerenal in setting of vomiting, diuretic use prior to presentation - Baseline Cr around 3.3 since 04/2022; CKD 2/2 HTN, ECHO EF 60%, IVC > 2.1 cm with RA ~ 8 mm , I/o not documented, strict I/Os - Sees nephrology (Dr. Reyes) as outpatient; recent biopsy due to nephrotic range proteinuria that noted hypertensive nephrosclerosis, no acute findings - R IJ CVC placed 08/23,replaced by permcath on 08/25 - will plan dialysis in am ?? #Hypertension - controlled on Hydral 100 tid, clonidine 0.3mg tid, labetolol 200mg tid, amlod 10mg, losartan 50 mg? #Normocytic Anemia - Hb 6.5<--7.1, no obvious e/o bleed - Iron studies ordered this hospitalization: - Iron 77 - TSat 31% - TIBC 248 - Ferritin 180 - c/w Retacrit 7000U weekly - Consider IV Iron 200mg (can give up to 5 doses over 14 day period; recommend up to 5 days worth or throughout remainder of inpatient stay if shorter than 5 days) - For transfusion today per primary ?? Patient will be seen and discussed with attending physician, Dr. Cintron. Josh Harrell MD 08/29/2022 Nephrology fellow 08/29/2022 6:10 PM Associated attestation - Peggy Cintron MD - 08/29/2022 8:27 PM CDT Attending Addendum I have seen and examined the patient with the renal team today. I agree with the findings and plan of care as documented by the fellow. In addition I note: 81 yo female with advanced chronic kidney disease due to hypertensive nephrosclerosis per kidney biopsy (based on Dr. Reyes's note) and other medical problems as per consult note, was transferred from OSH for further management of ICH. The patient has been transferred out of ICU and using face mask. Currently receiving PRBC transfusion. She is alert and edema is improving. Plan next hemodialysis/UF for tomorrow. Please see fellow's note for further details. * Toma Beckham RN - 08/28/2022 3:12 PM CDT Hemodialysis Nursing Documentation 1. Duration of treatment: 180 minutes 2. Access type: CVC RIJ 3. Total ultrafiltration volume: 2500 ml 4. Medications given during the treatment: none 5. Comments and observations: Pt tolerated tx well. No complications. * Yehuda Alberto RN - 08/28/2022 2:15 PM CDT Problem: Fall Risk Goal: Fall risk and fall related injury risk are minimized (interventions related to the fall risk can be found in the flowsheet documentation) Outcome: Progressing Problem: Neurological Deficit Goal: Neurological status is stable or improving Outcome: Progressing Problem: Hemodynamic Status/Cardiac Output Goal: Patient has stable vital signs and fluid balance Outcome: Progressing Problem: Oxygenation/Respiratory Function Goal: Respiratory rate/effort will be within specified limits Outcome: Progressing Problem: Mobility Goal: Patient's mobility/activity will be maintained as optimum level for age, diagnosis and physical limitations Outcome: Progressing Goal: Continuum of care needs are further met through referral to outpatient services when appropriate. Outcome: Progressing Goal: Patient reports the ability to perform Activities of Daily Living. Outcome: Progressing Problem: Communication Impairment/Dysarthria Goal: Ability to express needs and understand communication Outcome: Progressing Problem: Nutrition Goal: Nutritional status is improving Outcome: Progressing Problem: Aspiration Precautions Goal: Patient's risk of aspiration is minimized Outcome: Progressing Problem: Glycemic Control Goal: Clinical indication of glycemia balance is achieved Outcome: Progressing Problem: Knowledge Deficit,Education,Discharge Plan Goal: The patient/family will understand cerebrovascular disease and its symptoms, treatment and management Outcome: Progressing Problem: Mobility Goal: STG - Patient will ambulate Outcome: Progressing Problem: Pain/Discomfort Goal: Patient exhibits reduced pain/discomfort as evidenced by pain scores Outcome: Progressing Goal: Patient uses pharmacological and non-pharmacological pain management strategies. Outcome: Progressing Goal: Patient verbalizes acceptable level of pain relief and ability to engage in desired activity. Outcome: Progressing Problem: Ineffective Airway Clearance Goal: Patent airway Outcome: Progressing Problem: Swallowing Goal: LTG - Patient will demonstrate safe swallowing Intervention/techniques Outcome: Progressing Goal: LTG - Patient will tolerate the least restrictive diet consistency to allow for safe consumption of daily meals Outcome: Progressing Goal: STG - Patient will complete swallowing exercises Outcome: Progressing Goal: STG - Patient will participate in instrumental assessment of swallowing as appropriate Outcome: Progressing Problem: Oral Intake: Inadequate oral intake Goal: Total intake will meet estimated nutrient needs Outcome: Progressing Problem: Fluid and Electrolyte Imbalance Goal: Fluid and electrolyte balance are achieved/maintained Outcome: Progressing Problem: Infection Goal: Signs and symptoms of infections are decreased or avoided Outcome: Progressing Problem: Skin Integrity Goal: Skin integrity is maintained or improved Outcome: Progressing Problem: Balance Goal: LTG - Patient will maintain balance to allow for safe mobility Outcome: Progressing Continue plan of care * Jero Orozco MD - 08/28/2022 10:15 AM CDT GENERAL INTERNAL MEDICINE Progress note 08/28/2022 10:15 AM Admit Date: 08/15/2022 Subjective: Ms. Rea reports that she generally feels well today. She does not endorse any dyspnea with her CPAP in place. She does not endorse any new concerns at this time; no fevers, chills, angina, or palpitations. No acute events reported overnight per nursing staff Medications: MAR reviewed Physical Examination: BP 144/59 Pulse 77 Temp 97.7 ??F (36.5 ??C) (Temporal) Resp 18 Ht 1.727 m (5' 7.99 ) Wt 84 kg (185 lb 3 oz) SpO2 100% GEN: NAD, resting bed. RESP: Clear to auscultation bilaterally. No wheezing or crackles noted. CARDIAC: Regular rate and rhythm. No murmurs, rubs, or gallops noted. GI: Abdomen soft, non tender, and non-distended. Bowel sounds noted. 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 Transferred to [facility] on August 15 and was initially managed in the neural ICU. Unfortunately, her hospitalization was complicated by acute hypoxic respiratory failure andacute renal failure which required initiation of intermittent hemodialysis. She clinically improvedand was felt to be appropriate for transfer to the general medical floor in the evening August 27 Plan: # Pontine intraparenchymal hemorrhage - She was evaluated by Neurology and Neurosurgery. No plan for surgical intervention. Continue medical management. Per neurology recommendations systolic blood pressure goal is less than 180 mmHg. # Hypertensive emergency - We will continue amlodipine, losartan, labetalol, hydralazine, and clonidine. - We will provide IV hydralazine or labetalol as needed for systolic blood pressure greater than 180 mmHg. # Acute hypoxic respiratory failure # Pulmonary edema, likely secondary to acute renal failure # Aspiration pneumonia - We will continue to provide supplemental oxygen as needed - We will follow for improvement in her oxygenation as her volume is better managed through hemodialysis. - We will continue CPAP q.h.s. - Of note she was previously treated with a five-day course hyper Obie on/tazobactam for presumed aspiration pneumonia # Acute renal failure # Chronic kidney disease stage 5 - She required initiation of hemodialysis this during this hospitalization - Nephrology following, appreciate their assistance in helping her plan of care # Pharyngeal dysphagia - We appreciate assistance of speech therapy and developing her plan of care - She should remain NPO and continue TF feeds to NG per most recent evaluation on August 26 DVT PPx: Heparin TID Jero Orozco MD General Internal Medicine 08/28/2022 10:15 AM * Sho Cruz SLP - 08/28/2022 9:37 AM CDT [facility] Department of Physical Medicine & Rehabilitation Progress Note Patient: Kirsty Rea Med Record Number: [id number] Date of : 1940 Age: [age] year old 08/28/22 0937 Missed Visit Missed Visit Procedure In Room;Other (Comment) (Pt starting dialysis, also on BiPAP) Will re-attempt MBS as pt is appropriate. Speech-Language Pathologist * María Isaac MD - 08/28/2022 8:48 AM CDT Nephrology Progress Note 08/28/2022 8:48 AM Patient Name: Kirsty Rea (81 year old) Room Number: 523/01 Attending: Jero Orozco MD Hospital Day: 13 Subjective: Interval history: - No acute issues or events overnight - Transferred from ICU to floor yesterday - Clinically remains relatively unchanged from prior; remains on 15L via venti- mask, subjectively feels as though her breathing is slightly worse today than previous - Tolerated HD session with removal of 3L yesterday; will plan for DUF today Objective: Patient Vitals for the past 6 hrs: Temp Pulse Resp BP BP Method 08/28/22 0815 97.4 ??F (36.3 ??C) 81 18 175/83 Automatic 08/28/22 0541 -- 86 -- 159/79 -- 08/28/22 0426 -- 86 -- -- -- 08/28/22 0409 97.9 ??F (36.6 ??C) 85 17 167/69 Automatic Intake/Output Summary (Last 24 hours) at 08/28/2022 0848 Last data filed at 08/28/2022 0530 Gross per 24 hour Intake 505 ml Output 3000 ml Net -2495 ml Physical Exam General: Appears uncomfortable similar to prior days. Laying in bed with HOB elevated. HENT: NC/AT Eyes: Anicteric. Non-injected. Chest: Breath sounds decreased (R>L) without significant change from prior. No increased work ofbreathing on ventimask. Permcath at right chest. Cardiovascular: RRR. No murmurs, rubs, or gallops Abdomen: Soft. NT/ND. Normal BS+. : Quijano catheter in place Extremities: No signs of clubbing, cyanosis, or edema. Skin: Warm. Dry. Neurological: AOx2-3; conversational but has some difficulty communicating with mask on. Follows commands. Moves all extremities spontaneously without issue. No focal deficits. Psych: Appropriate mood and affect Medications SCHEDULED MEDICATIONS: 0.9% NaCl injection 3 mL, Intracatheter, q8h amLODIPine (Norvasc) tablet 10 mg, Enteral Tube, AT BEDTIME cloNIDine (Catapres) tablet 0.3 mg, Enteral Tube, TID epoetin deyanira-EPBX (Retacrit) injection 7,000 Units, Subcutaneous, q7 days heparin injection 5,000 Units, Subcutaneous, TID hydrALAZINE (Apresoline) tablet 100 mg, Enteral Tube, TID labetalol (Normodyne; Trandate) tablet 200 mg, Enteral Tube, q8h losartan (Cozaar) tablet 100 mg, Enteral Tube, QDAY polyethylene glycol 3350 (Miralax) packet 17 g, Enteral Tube, QDAY ?? [COMPLETED] potassium chloride 40 mEq in 270 mL bolus, Intravenous, Once ?? CONTINUOUS MEDICATIONS: PRN MEDICATIONS: 0.9% NaCl injection 1-10 mL, Intracatheter, PRN acetaminophen (Tylenol) tablet 500 mg, Enteral Tube, q4h PRN albuterol HFA (Proventil; Ventolin; Proair) 108 (90 Base) MCG/ACT inhaler 2 puff, Inhalation, q6h PRN albuterol-ipratropium (Duo-Neb) nebulizer solution 3 mL, Inhalation, q4h PRN hydrALAZINE (Apresoline) injection 15 mg, Intravenous, q4h PRN labetalol (Normodyne; Trandate) injection 20 mg, Intravenous, q2h PRN ?? senna (Senokot) tablet 8.6 mg, Enteral Tube, QDAY PRN Data Review Recent Labs Component Name 08/28/2241508/27/2243808/26/22329 WBC 8.5 8.4 8.0 HGB 7.1* 7.1* 7.3* HCT 21.9* 21.9* 21.7* PLTCOUNT 197 193 193 Recent Labs Component Name 08/28/2241508/15/2233803/09/22 1312 SODIUM - - 140 POTASSIUM 3.7 - 3.9 CHLORIDE - - 109 CO2 26 - 21 BUN 35* - 65* CREATININE 2.23* - 2.74* CALCIUM 9.0 - 8.7 ALBUMIN - - 3.6 ALT - - 12 AST - - 14 GLUCOSE 127* - 99 - = values in this interval not displayed. Recent Labs Component Name 08/27/2243808/26/2232908/25/22 033 INR 0.9 1.0 0.9 Microbiology: [facility] Imaging: [facility] Assessment and Plan: #TOÑA on CKD5 #Non-Anion Gap Metabolic Acidosis - Most likely prerenal in setting of vomiting, blood loss, diuretic use prior to presentation; other less likely etiologies include obstruction (does have some retention but urinary habits unchanged from home), infection (trace bacteria but no other signs to suggest) - Baseline Cr around 3.3 since 04/2022; CKD 2/2 HTN - Sees nephrology (Dr. Reyes) as outpatient; recent biopsy due to nephrotic range proteinuria that noted hypertensive nephrosclerosis, no acute findings - R IJ CVC placed 08/23 to initiate HD, replaced by permcath on 08/25 PLAN: - Will do DUF today for additional fluid removal - Strict I/O - Avoid nephrotoxic medications and renally dose all medications that are given ?? #Hyponatremia (Resolved) - Sodium gradually down-trending while hospitalized; additional urine studies sent on 08/19 - Urine Osm: 288 - Urine Sodium: < 20 - Urine Protein/Creatinine: 1.70 - c/f SIADH as etiology; sodium has improved with free water restriction, lasix - TSH and triglycerides both normal - SPEP/UPEP ordered on 08/19 without signs of monoclonal immunoglobulins - Improved since starting HD PLAN: - HD as above ?? #Hypertension - Home Medications: HCTZ 12.5mg daily, Nifedipine ER 90mg, Labetalol 200mg BID - SBPs have been 130s-150s while here at [facility] - Has had clonidine and hydralazine added while hospitalized; medications further adjusted given issues with swallowing, was on nicardipine gtt for short period as well PLAN: - Agree with labetalol 200mg q8h, clonidine 0.3mg TID, hydralazine 100mg TID, amlodipine 10mg, losartan 100 - Can consider addition of nitrate if additional agent is needed - Home nifedipine held as cannot be given via NG ? #Normocytic Anemia - Hgb at presentation initially 8.4 (baseline) but dropped to 7.0 following IVF - Likely has component of anemia of chronic disease 2/2 renal dysfunction - Iron studies ordered this hospitalization: - Iron 77 - TSat 31% - TIBC 248 - Ferritin 180 - Iron studies suggesting mixed picture of iron deficiency and anemia of chronic disease PLAN: - Retacrit 7000U weekly - Consider IV Iron 200mg (can give up to 5 doses over 14 day period; recommend up to 5 days worth or throughout remainder of inpatient stay if shorter than 5 days) - Transfuse for Hgb < 7.0 ? Patient will be seen and discussed with attending physician, Dr. Cintron. María Isaac MD Internal Medicine, PGY-3 08/28/2022 8:48 AM Associated attestation - Peggy Cintron MD - 08/28/2022 3:14 PM CDT Attending Addendum I have seen and examined the patient with the renal team today. I agree with the findings and plan of care as documented by the resident. In addition I note: 81 yo female with advanced chronic kidney disease due to hypertensive nephrosclerosis per kidney biopsy (based on Dr. Reyes's note) and other medical problems as per consult note, was transferred from OSH for further management of ICH. The patient remains in ICU and using face mask. She is alert and edema is improving. To attempt 2-3L UF over 3 hours as tolerated. Please see resident's note forfurther details. * Lexi Holden RN - 08/27/2022 9:45 PM CDT Goal met 3L removed, VS WDL, blood returned to patient, catheter flushed with NS and capped, no medications given during dialysis * Isaac Lawson MD - 08/27/2022 7:57 PM CDT [facility] INTERNAL MEDICINE PROGRESS NOTE Patient: Kirsty Rea Sex: female Age: [age] year old Date of : 1940 Date of Admission: 08/15/2022 Date: 08/27/2022 LOS: 12 SUBJECTIVE Interval History: Transferred to floor this evening. Currently undergoing HD. Patient endorses SOB that is unchanged. CPAP in place. She is hungry and thirsty but understands she hasn't passed the swallow eval. Hospital Course: Ms. Rea is a 81 year old female with PMH of HTN, CKD5 (2/2 hypertensive nephrosclerosis on kidney bx), and morphea who initially presented from OSH to [facility] on 08/15/22 for management of pontine ICH. She was admitted to the ICU for AMS, hypertensive emergency requiring Nicardipine gtt, and AHRF 2/2 pulmonary edema vs acute COPD exacerbation vs aspiration PNA, requiring Venti mask and CPAP. For ICH, NGSY recommended medical management, and along with Neurology, recommended SBP goal<180 while inpatient. Repeat CTH 08/22 showed evolving small volume of hemorrhage with minimal surrounding vasogenic edema. For AHRF, she completed 5 day course of Unasyn. She had TOÑA on CKD5, for which she was initiated on HD, and ultimately had permcath placed. For HTN emergency, she was weaned off Nicardipine 08/26 and transitioned to PO antihypertensives. Transferred to floor on 08/27. OBJECTIVE Vital Signs: Vitals: 08/27/22 1900 08/27/22 1915 08/27/22 1930 08/27/22 1945 BP: 172/97 174/86 174/80 177/70 Pulse: 77 76 80 Resp: 20 20 20 Temp: SpO2: 99% 100% 99% 99% Weight: Height: Temp Min: 95 ??F (35 ??C) Max: 99.4 ??F (37.4 ??C), Pulse Min: 53 Max: 120, Resp Min: 7 Max: 34, BPMin: 101/52 Max: 202/85 Intake & Output: In: 1836.2 [I.V.:205.2] Out: 0 Physical Exam: General: Alert and oriented, no acute distress Neck: supple Heart: RRR, No murmurs appreciated. Chest: CTAB, CPAP in place; permcath on right anterior chest Abdomen: Soft, non-tender, non-distended, bowel sounds present Extremities: No lower extremity edema, 2+ distal peripheral pulses Neuro: No focal deficits noted, sensation and motor intact throughout Intake/Output Summary (Last 24 hours) at 08/27/20221956 Last data filed at 08/27/2022 1405 Gross per 24 hour Intake 1179.09 ml Output -- Net 1179.09 ml Current Medications: Scheduled: ??? 0.9% NaCl 3 mL Intracatheter q8h ??? amLODIPine 10 mg Enteral Tube AT BEDTIME ??? cloNIDine 0.2 mg Enteral Tube TID ??? epoetin Deyanira-EPBX (Retacrit) injection 7,000 Units Subcutaneous q7 days ??? heparin 5,000 Units Subcutaneous TID ??? hydrALAZINE 100 mg Enteral Tube TID ??? labetalol 200 mg Enteral Tube q8h ??? losartan 100 mg Enteral Tube QDAY ??? polyethylene glycol 3350 17 g Enteral Tube QDAY ??? senna 17.2 mg Enteral Tube QDAY Continuous: PRN: ??? SALINE LOCK, INSERT AND MAINTAIN AND 0.9% NaCl AND 0.9% NaCl ??? acetaminophen ??? albuterol HFA ??? albuterol-ipratropium ??? hydrALAZINE ??? labetalol Significant Lab Results: Reviewed Imaging & Studies: CT Chest 08/22 1.Bilateral, moderate right and small left, pleural effusions. 2.Suggestion of pulmonary congestion in the setting of mild cardiomegaly. 3.Indeterminate masslike para-bronchovascular consolidation along with segmental right lower lobe bronchus with interval development of right lower lobe atelectatic collapse. There is no clear correlate for these findings on prior chest radiographs. However, this may blend with the right main pulmonary artery on frontal views. Findings favor interval development of infectious/inflammatory etiology with postobstructive atelectasis/mucus plugging. Recommend short-term follow-up CT chest with contrast to document resolution. Recommend new baseline chest radiograph, PA and lateral if able. CT Head 08/22 1. Evolving small volume of hemorrhage in the dorsal hilray with minimal surrounding vasogenic edema. No new areas of hyperdensities/new foci of hemorrhage.. ASSESSMENT & PLAN Pontine ICH, stable -repeat CT Head 08/22 stable -NGSY rec medical management -Neuro rec SBP goal <180 inpatient -Neurocheck q4h, STAT CTH if acute change in neuro exam HTN emergency, resolved -off Nicardipine gtt -continue Amlodipine 10mg daily, Losartan 100mg daily, Labetalol 200mg q8h, Hydralazine 100mg TID; increase Clonidine 0.2mg --> 0.3mg TID; titrate to goal -IV Hydralazine or Labetalol PRN for SBP>180 AHRF 2/2 pulmonary edema and aspiration PNA -aspiration PNA treated with 5 day course of Unasyn -volume removal as tolerated with HD -supplemental O2, wean to keep SpO2>90% -CPAP qHS -Duonebs prn, bronchial hygiene -PT/OT: acute rehab TOÑA on CKD5 -Nephrology following, initiated on HD MWF, permcath placed on this admission Pharyngeal dysphagia -Speech following, rec pt remain NPO as of 08/26, need Modified Barium Swallow for further eval -continue TF via NG -aspiration precautions Normocytic anemia, stable -likely anemia of chronic disease 2/2 CKD -s/p IV iron x3 -EPO qweekly -trend CBC, transfuse if Hgb<7, Plt<10K or <50K if bleeding Code: Full Diet: NPO with TF Electrolytes: Replete PRN PPx: SQ Heparin Access: PIV, NG, permcath Dispo: Medicine Isaac Lawson MD Internal Medicine 08/27/2022 * Jillian Barr RN - 08/27/2022 5:05 PM CDT REPORT BEFORE DIALYSIS Diagnosis (TOÑA/CRF): CKD Non-Renal Diagnosis: CVA Isolation: No active isolations Does patient have signs or symptoms of respiratory infection (fever, cough, shortness of breath): no Allergies Allergen Reactions ??? Ramipril Other Other reaction(s): Other (See Comments) Kidney Damage Kidney Damage Code Status: Full Orientation Status: x On telemetry/Rhythm: no Oxygen: CPAP Given any medications: yes Need for pain medications: no Blood pressure issues: On any drips: no Is patient diabetic: yes Any labs to draw: no Any other procedures today: no Any concerns about this patient: NPO, Tube feeding Any medications to be given with dialysis: yes Due date of next Central Line Dressing change: Primary RN educated on Incapacitated Nurse: na * Jayme Cage - 08/27/2022 3:54 PM CDT Images from the original note were not included. I am following this dialysis patient for any possible needs or change of clinic after discharge. There are no changes indicated at this time. Jayme Cage [facility] Kidney Navigator/Dialysis Director Of Sleep [facility] Phone Number; [phone] * Ting Man RN - 08/27/2022 3:15 PM CDT Problem: Fall Risk Goal: Fall risk and fall related injury risk are minimized (interventions related to the fall risk can be found in the flowsheet documentation) Outcome: Progressing Problem: Neurological Deficit Goal: Neurological status is stable or improving 08/27/2022 1515 by Ting Man RN Outcome: Adequate for Discharge 08/27/2022 1503 by Ting Man RN Outcome: Adequate for Discharge Problem: Hemodynamic Status/Cardiac Output Goal: Patient has stable vital signs and fluid balance Outcome: Progressing Problem: Oxygenation/Respiratory Function Goal: Respiratory rate/effort will be within specified limits Outcome: Progressing Problem: Mobility Goal: Patient's mobility/activity will be maintained as optimum level for age, diagnosis and physical limitations Outcome: Progressing Goal: Continuum of care needs are further met through referral to outpatient services when appropriate. Outcome: Progressing Goal: Patient reports the ability to perform Activities of Daily Living. Outcome: Progressing Problem: Nutrition Goal: Nutritional status is improving Outcome: Progressing Problem: Aspiration Precautions Goal: Patient's risk of aspiration is minimized Outcome: Progressing Problem: Glycemic Control Goal: Clinical indication of glycemia balance is achieved Outcome: Adequate for Discharge * Earnestine Brand MD - 08/27/2022 11:30 AM CDT [facility] Note 08/27/2022 11:31 AM Patient: Kirsty Rea (:1940) Room: [facility] Admit Date: 08/15/2022. Hospital Day: 12 CC: Weakness Hospital Course: Mrs Rea??81 year old??female??w/ hx of HTN,??CKD stage IV-V,??morphea, who presented to [facility] on??08/15/22??as OSH transferred for management of pontine intraparenchimal bleed. Patient presented to OSH??for nausea, vomiting and weakness. CTH??at OSH showed??pontine IPH measuring 9*8*10 mmwithout mass effect.??Patient BP has been elevated during hospitalization and required IV anti- HTN. Also patient developed worsening dysphagia and she was choking on her PO medications and she was not able to tolerate PO intake so she missed PO anti-HTN meds.? Patient transferred to the ICU for better control of her BP with drips, worsening mental status, and worsening hypoxia. On physical exam patient was AOx3 awake, alert and resonds to quesitons coherently.??Patient received emergent dialysis, and now with permanent tunneled dialysis catheter (08/26). Interval History: Patient continues on Venti mask and CPAP overnight. Patient to get dalysis today. Berto is on PO meds for hypertension. She reports no issues or concerns. Objective: Vitals: 08/27/22 0800 08/27/22 0834 08/27/22 0905 08/27/22 1047 BP: (!) 186/81 162/91 173/84 Pulse: 83 Resp: Temp: 98.3 ??F (36.8 ??C) SpO2: Weight: Height: Date 08/26/22 0700 - 08/27/22 0659 08/27/22 0700 - 08/28/22 0659 Shift 8816-7636 2318-2320 4462-1354 24 Hour Total 8348-5643 5494-6408 5717-3509 24 Hour Total INTAKE I.V.(mL/kg/hr) 109.1(0.2) 96.1(0.1) 205.2(0.1) Tube 190 170 60 420 150 150 Enteral 318 663 981 Shift Total(mL/kg) 617.1(7.5) 266.1(3.2) 723(8.6) 1606.2(19.1) 150(1.8) 150(1.8) OUTPUT Urine(mL/kg/hr) 0(0) 0(0) 0(0) Shift Total(mL/kg) 0(0) 0(0) 0(0) NET 617.1 266.1 723 1606.2 150 150 Weight (kg) 82.5 82.5 84 84 84 84 84 84 PEEP/CPAP: 8 cm H20 O2 %: 50 % Physical Exam General - NAD, afebrile, non cachectic HEENT??- NC/AT, EOMI, clear conjunctivae, throat without erythema or exudate, moist mucous membranes Neck??- Supple, no LAD, no JVD Chest??- Diffuse wheezes, no crackles.?? CV - RRR no murmurs, radial and DP pulses 2/4, good capillary refill Abdomen - Soft, NT/ND, +BS, no organomegaly Musculoskeletal - Moves all four extremities Extremities??- No c/c/e Skin??- No rashes, lesions or jaundice Neurologic??- A&O x 3, no focal neurological deficits Psych??- Appropriate mood and affect?? Labs: CBC: Recent Labs Component Name 08/27/2243808/26/220 08/25/22337 WBC 8.4 8.0 8.9 HGB 7.1* 7.3* 7.9* HCT 21.9* 21.7* 22.7* BMP: Recent Labs Component Name 08/27/2243808/26/22 1533 08/26/22 0330 NA 139 142 139 CL 100 107 99 CO2 29 24 31* BUN 41* 29* 27* CREATININE 2.57* 1.91* 1.91* CALCIUM 8.7 6.7* 8.2* PHOS 2.9 2.3* 2.3* Hepatic: Recent Labs Component Name 08/27/2243808/26/22 1533 08/26/22 0330 08/22/22 0747 08/19/22 1056 08/17/22 0405 03/09/22 1312 ALT - - - - - - 12 AST - - - - - - 14 PROT - - - - 4.9* 5.1* - ALB 2.6* 2.0* 2.6* - - 2.8* - ALKPHOS - - - - - - 72 - = values in this interval not displayed. Coagulation: Recent Labs Component Name 08/27/2243808/26/220 08/25/22 0338 PT 11.8* 12.9 12.3 INR 0.9 1.0 0.9 Cardiac Markers: Recent Labs Component Name 08/22/22 0747 08/21/22 2340 08/21/22 1655 TROPONINI 0.037* 0.058* 0.054* ABGs: No results for input(s): PHART, PO2ART, XEF3FRW, BEART in the last 56305 hours. Micro: Reviewed Imaging: Imaging reviewed. Assessment: Acute renal failure (ARF) (CMS/HCC) POA: Yes Intracranial hemorrhage, nontraumatic (CMS/HCC) POA: Yes Pleural effusion POA: Yes Aspiration pneumonia (CMS/HCC) POA: Yes Dysphagia POA: Yes Hyponatremia POA: Yes Elevated troponin POA: Yes Hypoalbuminemia POA: Yes High anion gap metabolic acidosis POA: Yes Normocytic anemia POA: Yes Acute decompensated heart failure (CMS/HCC) POA: No Respiratory failure with hypoxia (CMS/HCC) POA: Yes Hypertensive emergency POA: Yes PLAN: Neurological: RASS goal -1??to??0 ?? #Intraparenchymal pontine bleed. #Altered mental status. -At OSH??CTH??showed pontine intraparenchimal bleed. -On repeat CTH??here, same -Neurosurgery, re-consulted for updated BP recc's at this time -prior Neurology BP goal <180, control hypoglycemia, hyponatremia, and hyperthermia. ?? -frequent re-orientation Cardiovascular: MAP goal -??>65??mmHg ?? #HTN emergency BP goal <180 as per neuro -Patient BP uncontrolled in the setting of missing PO meds. -Was on nicardipine drip?08/22-08/26. -TTE shows EF 60% and??Mild pulmonary hypertension, estimated pulmonary arterial systolic pressure is 36 mmHg.?? Plan: -Continue Clonidine??0.2 mg TID,??amlodipine??10 mg QHS,??Hydralazine 100 mg TID, Losartan 100 mg QD, labetalol 200mg Q8 Pulmonary: SpO2 goal -??>90% ?? #AHRF??2/2 Pulmonary Edema Vs COPD exacerbation, On Venti??mask??and CPAP as needed overnight ? #Pulmonary edema - CT scan showed??1.Bilateral, moderate right and small left, pleural effusions. 2.Suggestion of pulmonary congestion in the setting of mild cardiomegaly -??completed another round dialysis 08/25 Plan: -Dialysis MWF ?? #COPD exacerbation -45 years Hx of smoking -Wheezing on PE. Now resolved. -Duonebs??Q4??PRN #Suspected Aspiration pneumonia -CT scan showed??Indeterminate masslike para-bronchovascular consolidation along with segmental right lower lobe bronchus with interval development of right lower lobe atelectatic collapse. -Completed 5 days of unasyn GI:?? Tube feeds Nepro??40??ml/hr, water flush 100 mg q6 to resume after IR procedure, continue to work with Speech to evaluate swallow issues. Gluco check Q6?? Renal:?? #TOÑA on CKD -Baseline Cr 3.3 -Pre-renal in the setting of volume loss. -Neophrology consulted appreciate recc's -SPEP/UPEP ordered on 08/19 without signs of monoclonal immunoglobulins Plan: -??sodium bicarb 1300 tid -??EPO 7000 units/week - Avoid nephrotoxic medications and renally dose??medications - Dialysis MWF ?? #hyponatremia (resolved) -ddx: pre renal etiology c/f??SIADH,??hypovolemia, contrast induced, hx of nephrotic range proteinuria, CKD stage 5.?? Sodium gradually down-trending while hospitalized; additional urine studies sent on 08/19 - Urine Osm: 288 - Urine Sodium: < 20 - Urine Protein/Creatinine: 1.70 - c/f SIADH as etiology; sodium has improved with free water restriction, lasix - TSH and triglycerides both normal - Improved since starting HD Plan: -??CTM ?? #urinary retention - patient with new onset urinary retention on admission - likely 2/2 clonidine use and inpatient hospitilization - would not change clonidine dose as patient is stable on hypertensive regimen and risks outweigh benefit for repeat intracranial bleed. PLAN: - bladder scans??PRN, straight cath if >??350cc Endocrine: BGM goal 140-180 mg/dL ?? ID:?? See Pulm??for aspiriation??pneumonia ?? Heme/Onc:?? #Normocytic??anemia??2/2 CKD -??Hgb at presentation initially 8.4 (baseline) but dropped to 7.0 following IVF - Anemia workup: Iron 77, TIBC 248, Transferrin 198 -??Type and cross and 1unit pRBCs 08/18/22 for Hb of 6.2 PLAN: -??EPO 7000 units/week, received 3 days iron IV supplementation - CTM CBC, Transfuse for Hgb < 7.0 ?? FEN: -Monitor electrolytes QD, Replace K<4, Mg<2, Phos<3 ? Lines: Type:??NG tube (08/22), Tunneled dialysis cath from IR, urinary catheeter, PIV x2 Prophylaxis: Aspiration precautions w/ HOB elevation by 30 degrees GI prophyalxis w/ famotidine DVT prophyalxis w/ SCDs, Heparin Diet: ??TF, Nepro Activity: ??Bedrest Disposition: ICU Monitoring?? TRANSFER CHECKLIST: Pertinent comorbidities/PMH: HTN,??CKD stage V,??morphea, Pontine IPH, dysphagia Home meds being held: Nifedipine, pending ability to take PO currently on Amlodipine per NG Intubation/NIPPV days: CPAP as needed @ night Pressor agents and days: None while in ICU ABX indications: Unasyn for aspiration PNA Consult teams past & present: IP CONSULT TO NEUROSURGERY IP CONSULT TO VASCULAR NEUROLOGY IP CONSULT TO CASE MANAGEMENT IP CONSULT TO NUTRITIONAL SERV IP CONSULT TO SHEAR ASSEMBLER IP CONSULT TO PHYSICAL MED AND REHAB IP CONSULT TO PULPING MACHINE OPERATOR IP CONSULT TO NEPHROLOGY IP CONSULT TO INTERNAL MEDICINE IP CONSULT TO LANDSCAPE SPECIALIST IP CONSULT TO WOUND NURSE IP CONSULT TO NUTRITIONAL SERV Pending work up: Swallow eval Things to watch: Unable to pass swallow may need modified barium vs camera. If continues to fail may need dobhoff vs PEG To address prior to d/c: Neuro BP recc's To address at d/c (f/u etc): Neuro stroke Appt, Nephro Dialysis plan with Dr Reyes Code Status: Full Code Earnestine Chatterjee MD Associated attestation - Ashvin Barber MD - 08/27/2022 1:11 PM CDT I have seen and examined the patient with the resident and I agree with the findings and plan of care as documented by the resident. Date of Service: 08/27/22 Ashvin Barber MD * María Isaac MD - 08/27/2022 10:53 AM CDT Nephrology Progress Note 08/27/2022 10:53 AM Patient Name: Kirsty Rea (81 year old) Room Number: 303/01 Attending: Ashvin Barber MD Hospital Day: 12 Subjective: Interval history: - No acute issues or events overnight - Transitioned to NC per documentation, although on exam this AM she was on Ventimask again - Continues to feel no changes in her breathing status - SBP remains elevated; primary team adding additional PO options today; of note appears not to have received losartan yesterday Objective: Patient Vitals for the past 6 hrs: Temp Pulse Resp BP 08/27/22 1047 -- -- -- 173/84 08/27/22 0905 -- -- -- 162/91 08/27/22 0834 -- 83 -- (!) 186/81 08/27/22 0800 98.3 ??F (36.8 ??C) -- -- -- 08/27/22 0749 -- -- -- 160/84 08/27/22 0700 -- 71 18 148/76 08/27/22 0600 -- 77 18 (!) 172/109 08/27/22 0545 -- 81 23 (!) 194/77 08/27/22 0500 -- 76 22 165/73 Intake/Output Summary (Last 24 hours) at 08/27/2022 1053 Last data filed at 08/27/2022 0900 Gross per 24 hour Intake 1547.09 ml Output 0 ml Net 1547.09 ml Physical Exam General: Slightly more comfortable than prior. Laying in bed with HOB elevated. HENT: NC/AT Eyes: Anicteric. Non-injected. Chest: Breath sounds decreased (R>L) without significant change from prior. No increased work ofbreathing on ventimask. Permcath at right chest. Cardiovascular: RRR. No murmurs, rubs, or gallops Abdomen: Soft. NT/ND. Normal BS+. : Quijano catheter in place Extremities: No signs of clubbing, cyanosis, or edema. Skin: Warm. Dry. Neurological: AOx2-3; conversational but has some difficulty communicating with mask on. Follows commands. Moves all extremities spontaneously without issue. No focal deficits. Psych: Appropriate mood and affect Medications SCHEDULED MEDICATIONS: 0.9% NaCl injection 3 mL, Intracatheter, q8h albuterol-ipratropium (Duo-Neb) nebulizer solution 3 mL, Inhalation, q4h amLODIPine (Norvasc) tablet 10 mg, Enteral Tube, AT BEDTIME cloNIDine (Catapres) tablet 0.2 mg, Enteral Tube, TID epoetin deyanira-EPBX (Retacrit) injection 7,000 Units, Subcutaneous, q7 days heparin injection 5,000 Units, Subcutaneous, TID hydrALAZINE (Apresoline) tablet 100 mg, Enteral Tube, TID labetalol (Normodyne; Trandate) tablet 200 mg, Enteral Tube, q8h losartan (Cozaar) tablet 100 mg, Enteral Tube, QDAY losartan (Cozaar) tablet 50 mg, Oral, Once polyethylene glycol 3350 (Miralax) packet 17 g, Enteral Tube, QDAY potassium chloride 40 mEq in 270 mL bolus, Intravenous, Once senna (Senokot) tablet 17.2 mg, Enteral Tube, QDAY [COMPLETED] ampicillin-sulbactam (Unasyn) 3 g in 0.9% NaCl IV 100 mL IVPB, Intravenous, q24h [COMPLETED] losartan (Cozaar) tablet 50 mg, Oral, Once ?? [COMPLETED] potassium chloride (Klor-Con) packet 40 mEq, Enteral Tube, Once ?? CONTINUOUS MEDICATIONS: PRN MEDICATIONS: 0.9% NaCl injection 1-10 mL, Intracatheter, PRN acetaminophen (Tylenol) tablet 500 mg, Enteral Tube, q4h PRN albuterol HFA (Proventil; Ventolin; Proair) 108 (90 Base) MCG/ACT inhaler 2 puff, Inhalation, q6h PRN hydrALAZINE (Apresoline) injection 15 mg, Intravenous, q4h PRN ?? labetalol (Normodyne; Trandate) injection 20 mg, Intravenous, q2h PRN Data Review Recent Labs Component Name 08/27/2243808/26/2232908/25/22 033 WBC 8.4 8.0 8.9 HGB 7.1* 7.3* 7.9* HCT 21.9* 21.7* 22.7* PLTCOUNT 193 193 208 Recent Labs Component Name 08/27/2243808/15/2233803/09/22 1312 SODIUM - - 140 POTASSIUM 3.4* - 3.9 CHLORIDE - - 109 CO2 29 - 21 BUN 41* - 65* CREATININE 2.57* - 2.74* CALCIUM 8.7 - 8.7 ALBUMIN - - 3.6 ALT - - 12 AST - - 14 GLUCOSE 137* - 99 - = values in this interval not displayed. Recent Labs Component Name 08/27/22 0439 08/26/22 0330 08/25/22 0338 INR 0.9 1.0 0.9 Microbiology: [facility] Imaging: [facility]ed in [facility] Assessment and Plan: #TOÑA on CKD5 #Non-Anion Gap Metabolic Acidosis - Most likely prerenal in setting of vomiting, blood loss, diuretic use prior to presentation; other less likely etiologies include obstruction (does have some retention but urinary habits unchanged from home), infection (trace bacteria but no other signs to suggest) - Baseline Cr around 3.3 since 04/2022; CKD 2/2 HTN - Sees nephrology (Dr. Reyes) as outpatient; recent biopsy due to nephrotic range proteinuria that noted hypertensive nephrosclerosis, no acute findings - R IJ CVC placed 08/23 to initiate HD, replaced by permcath on 08/25 PLAN: - Will plan for session of HD/DUF today for additional fluid removal - Strict I/O - Avoid nephrotoxic medications and renally dose all medications that are given ?? #Hyponatremia (Resolved) - Sodium gradually down-trending while hospitalized; additional urine studies sent on 08/19 - Urine Osm: 288 - Urine Sodium: < 20 - Urine Protein/Creatinine: 1.70 - c/f SIADH as etiology; sodium has improved with free water restriction, lasix - TSH and triglycerides both normal - SPEP/UPEP ordered on 08/19 without signs of monoclonal immunoglobulins - Improved since starting HD PLAN: - HD as above ?? #Hypertension - Home Medications: HCTZ 12.5mg daily, Nifedipine ER 90mg, Labetalol 200mg BID - SBPs have been 130s-150s while here at [facility] - Has had clonidine and hydralazine added while hospitalized; medications further adjusted given issues with swallowing, was on nicardipine gtt for short period as well PLAN: - Agree with labetalol 200mg q8h, clonidine 0.2mg TID, hydralazine 100mg TID, amlodipine 10mg, losartan 100 - Home nifedipine held as cannot be given via NG ? #Normocytic Anemia - Hgb at presentation initially 8.4 (baseline) but dropped to 7.0 following IVF - Likely has component of anemia of chronic disease 2/2 renal dysfunction - Iron studies ordered this hospitalization: - Iron 77 - TSat 31% - TIBC 248 - Ferritin 180 - Iron studies suggesting mixed picture of iron deficiency and anemia of chronic disease PLAN: - Retacrit 7000U weekly - Consider IV Iron 200mg (can give up to 5 doses over 14 day period; recommend up to 5 days worth or throughout remainder of inpatient stay if shorter than 5 days) - Transfuse for Hgb < 7.0 ? Patient will be seen and discussed with attending physician, Dr. Cintron. María Isaac MD Internal Medicine, PGY-3 08/27/2022 10:53 AM Associated attestation - Peggy Cintron MD - 08/27/2022 6:23 PM CDT Attending Addendum I have seen and examined the patient with the renal team today. I agree with the findings and plan of care as documented by the resident. In addition I note: 81 yo female with advanced chronic kidney disease due to hypertensive nephrosclerosis per kidney biopsy (based on Dr. Reyes's note) and other medical problems as per consult note, was transferred from OSH for further management of ICH. The patient remains in ICU and using CPAP. She is awake, lungs - coarse, and CV - high BP and edema present. To administer a hemodialysis treatment today and attempt UF as tolerated. Please see resident's note for further details. * Lexi Adair SLP - 08/27/2022 9:41 AM CDT [facility] Department of Physical Medicine & Rehabilitation Progress Note Patient: Kirsty Rea [facility] Record Number: [id number] Date of : 1940 Age: [age] year old 08/27/22 0900 Missed Visit Missed Visit Other (Comment) Patient currently requiring CPAP and not appropriate for PO intake. Will follow- up at a later time. Thank you, Lexi ANTUNEZ, CCC-[employer] Speech Language Pathologist * Cherry Tarango, PT - 08/27/2022 9:16 AM CDT [facility] Physical Medicine and Rehabilitation Physical Therapy Initial Evaluation Note Patient: Kirsty Rea [facility] Record Number: [id number] Date of : 1940 Age: [age] year old PPE worn by staff: mask - procedural;gloves PPE worn by patient: gown - patient, clean New orders received s/p transfer to ICU. Re-evaluation performed this date. Goals and POC updated this date. Discharge Recommendation: Patient will benefit from intense 3 hour per day multidisciplinary inpatient therapies due to decreased independence with functional mobility. In addition to the 1:1 evaluation of [...] Evaluation and Treat PRECAUTIONS: Weight Bearing Status: (no restrictions) Activity Level: (up as sadie) DIAGNOSIS: Patient Active Problem List: Osteoporosis Hearing [...] Respiratory failure with hypoxia (CMS/HCC) Hypertensive emergency Past Medical History: Diagnosis Date ??? CKD (chronic kidney disease) stage 3, GFR 30-59 ml/min (CMS/HCC) proteinuria ??? HTN (hypertension), benign ??? Hyperparathyroid bone disease (CMS/HCC) s/p surgery ??? Morphea ??? Osteopenia SUBJECTIVE: Subjective: Pt is agreeable to therapy PATIENT GOALS: Patient's Primary Concern: To get better Home Situation: Type of Residence: Private Residence Lives with:: Son Steps to Enter: No Home Structure: One Story Primary Bedroom: First Floor Primary Bathroom: First Floor Bathroom : Walk in Shower Equipment at Home: Cane-Straight Prior Level of Functioning: Mobility: Independent;Without Assistive Device;Ambulate-In Community;Driving Fallen Within 6 Mos: No Have Help at Home?: Yes, there is help at home now Who assists you at home?: Friends/Family How often is assistance provided?: pt typically independent Oxygen at Home: No Activity at Home: Active Vision: Corrected with glasses Hearing Exceptions: No impairment Pain Assessment: Pain Rating Score #: 0 Follow-up for pain: No follow-up for pain indicated and patient agreed to proceed with treatment OBJECTIVE: At start of therapy session, patient found in bed and with bed alarm on. General Appearance: female, in bed, NAD LDAs: IV's: Peripheral line, Telemetry and Oxygen Venturi Mask Edema: no edema noted in bilateral lower extremities Vitals: (*Assess the 3 levels of oxygen saturations both for room air and 02 unless rest on room air is 88% or less). Rest BP: 168/78 HR: 80 Sp02 Sp02 95% Room Air L O2 VENTI mask 15 L/min, 50% fio2 Ex/Gait/Activity With 02 BP: HR: 87 Sp02 90-94% L O2 VENTI mask 15 L/min, 50% fio2 Post Activity BP: 190/83 HR: 84 Sp02 Sp02 93% L O2 Room Air VENTI mask 15 L/min, 50% fio2 Observations: No signs or symptoms of distress with activity/postural changes. No c/o dizziness, SOB with activity. Mental Status/Cognition: Level of Consciousness-Adult: Alert;Eyes Open Spontaneously Orientation Level: Oriented X4 Cognition: Follows Commands-Consistent;Attention/concentration-normal for age;Processing-Appropriate Comments: Pt follows all commands, appropriately answers questions, CHINIK ROM: RLE: AROM WFL LLE: AROM WFL Strength: RLE:grossly 4/5 LLE: grossly 4/5 Tone: RLE: no abnormal tone noted LLE: no abnormal tone noted Coordination: RLE: WNL LLE: WNL Sensation: RLE: intact, no complaints of numbness or tingling LLE: intact, no complaints of numbness or tingling Mobility: A gait belt and non-slip socks were used for all out of bed activity this date. Bed Mobility: Supine to Sit: Minimal Assistance;X 2 with HOB in semi-fowlers position Sit to Supine: Minimal Assistance;X 2 Transfers: Sit to Stand: Minimal Assistance;X 2 Stand to Sit: Minimal Assistance;X 2 Type of Transfer: Other (Comment) (pt takes 2-3 lateral steps at EOB with bilateral BEEF BREAKER) Transfer Device: Gait belt Pt required verbal and tactile cues for obtaining full upright posture with pt able to obtain in standing this date Balance: Balance Scales/Tests Used: Sitting: Static/Dynamic;Standing: Static/Dynamic Sitting - Static: Fair + Sitting - Dynamic: Fair Standing - Static: Fair - Standing - Dynamic: Fair - No LOB ACTIVITY TOLERANCE: Patient's activity tolerance: fair plus TREATMENT/INTERVENTIONS: evaluation, bed mobility training, transfer training, pre-gait training, balance activities and monitoring of vitals Modified [place]: Current Modified [place] Score: 4 EDUCATION: While performing PT, Patient was instructed in:functional mobility training, safety awareness/fall precautions Presented to patient who demonstrates Good understanding of instructions given. INFORMED CONSENT TO TREATMENT: Plan of care including recommended therapy, goals and frequency, discussed with patient who understands and agrees to proceed. ASSESSMENT: Patient would benefit from additional Physical Therapy sessions to achieve the following functionalgoals to enhance independence. Short Term Goals: Patient will perform bed mobility with minimal assist Patient will transfer sit to/from stand with minimal assist Patient will transfer bed to/from chair with minimal assist Patient will ambulate 50 feet with minimal assist and appropriate AD Non Destructive Testing Scientist Goal(s): Patient to discharge to appropriate next level of inpatient care. Equipment Issued: gait belt Plan: Plan: Gait training Transfer training Assistive device training Endurance training Bed mobility training Balance training Energy conservation techniques Safety awareness If patient is discharged from the facility, this note serves as a discharge summary if further physical therapy visits did not occur. Refer to filed flowsheet for further details. Following therapy session, patient left in bed, with bed alarm on , with call light within reach, with RNTing, aware. All lines intact. * Glen Almaz Alyssa, OT - 08/27/2022 9:14 AM CDT [facility] Occupational Therapy Re-Evaluation Note Patient: Kirsty Rea [facility] Record Number: [id number] Date of : 1940 Age: [age] year old Re-evaluation completed s/p transfer to ICU with change in functional status. PPE worn by staff: mask - procedural;gloves PPE worn by patient: gown - patient, clean Tech: n/a; with PT Discharge Recommendation: Patient will benefit from intense 3 hour per day multidisciplinary inpatient therapies due to decreased mobility/ADL independence. In addition to the 1:1 evaluation of the patient, additional eval time was spent completing the chart review prior to the assessment, completing the multidisciplinary plan of care and education plan post evaluation and communicating results of the eval to other treatment team members. Nurse and Physical Therapy contacted regarding patient status and/or discharge plan. Physician Orders: Evaluation and Treat Activity Level: amb with assist PRECAUTIONS: Weight Bearing Status: Lower Extremity;Upper Extremity Weight Bearing: WBAT DIAGNOSIS: Patient Active Problem List: Osteoporosis Hearing [...] Respiratory failure with hypoxia (CMS/HCC) Hypertensive emergency Past Medical History: Diagnosis Date ??? CKD (chronic kidney disease) stage 3, GFR 30-59 ml/min (CMS/HCC) proteinuria ??? HTN (hypertension), benign ??? Hyperparathyroid bone disease (CMS/HCC) s/p surgery ??? Morphea ??? Osteopenia SUBJECTIVE: Subjective: Pt pleasant throughout; agreeable to participate. PATIENT GOALS: Home Situation: Type of Residence: Private Residence Lives with:: Son Steps to Enter: No Home Structure: One Story Primary Bedroom: First Floor Primary Bathroom: First Floor Bathroom : Walk in Shower Equipment at Home: Cane-Straight Prior Level of Functioning: Mobility: Independent;Without Assistive Device;Ambulate-In Community;Driving Fallen Within 6 Mos: No Have Help at Home?: Yes, there is help at home now Who assists you at home?: Friends/Family How often is assistance provided?: pt typically independent Oxygen at Home: No Activity at Home: Active Vision: Corrected with glasses Hearing Exceptions: No impairment Who manages medications?: self Pain Assessment: Pain Rating Score #: 0 Follow-up for pain: No follow-up for pain indicated and patient agreed to proceed with treatment OBJECTIVE: At start of therapy session, patient found in bed and with bed alarm on General Appearance: 81 y/o female, supine in bed LDA: IV's: Peripheral line and Central line, NG/Dobbhoff and Oxygen Venturi Mask Edema: No edema noted Vitals: (*Assess the 3 levels of oxygen saturations both for room air and 02 unless rest on room air is 88% or less). Rest BP: HR: Sp02 Sp02 Room Air L O2 Ex/Gait/Activity Without 02 BP: HR: Sp02 Room Air Ex/Gait/Activity With 02 BP: HR: Sp02 L O2 Post Activity BP: HR: Sp02 Sp02 L O2 Room Air Observations: VSS throughout; pt sates increased SOB with activity. Vitals remain stable Mental Status/Cognition: Level of Consciousness-Adult: Alert;Eyes Open Spontaneously Orientation Level: Oriented X4 Cognition: Follows Commands-Consistent;Attention/concentration-normal for age;Processing-Appropriate Attention Span: Appears intact Memory: Appears intact Following Commands: Follows all commands and directions without difficulty Safety Judgement: Good awareness of safety precautions Awareness of Errors: Good awareness of errors made Problem Solving: Assistance required to generate solutions UE ROM: RUE: AROM WFL LUE: AROM WFL Strength: RUE: WNL LUE: WNL UE Tone RUE: no abnormal tone noted LUE: no abnormal tone noted Coordination: intact serial opposition for bilateral hands UE Proprioception RUE: WFL LUE: WFL UE Sensation RUE: intact, no complaints of numbness or tingling LUE: intact, no complaints of numbness or tingling Perception: Visual/Motor Tracking: Able to track stimulus in all quads w/o difficulty Mobility: A gait belt and non-slip socks were used for all out of bed activity this date. Bed Mobility: Supine to Sit: Minimal Assistance;X 2 with HOB in semi-fowlers position Sit to Supine: Minimal Assistance;X 2 Transfers: Sit to Stand: Minimal Assistance;X 2 Stand to Sit: Minimal Assistance;X 2 Type of Transfer: Other (Comment) (pt takes 2-3 lateral steps at EOB) Transfer Device: Gait belt Functional Ambulation: Functional mobility of ambulation to sink/bathroom with Min x 2 assist using hand held assist. Comments: pt completes 2-3 lateral steps at EOB; pt is also able to stand for extended period of time for radha care hygiene Balance: Balance Scales/Tests Used: Sitting: Static/Dynamic;Standing: Static/Dynamic Sitting - Static: Good - Sitting - Dynamic: Good - Standing - Static: Fair Standing - Dynamic: Fair - Activities of Daily Living Feeding: Activity Does Not Occur (hand to mouth) Oral Facial Hygiene: Activity Does Not Occur Bathing: Activity Does Not Occur Upper Body Dressing: Minimal Assistance (for gown management) Lower Body Dressing: Maximal Assistance (to don socks) Toileting: Activity Does Not Occur Splint Issued/Checked: none ACTIVITY TOLERANCE: Patient's activity tolerance: fair Modified Elizabeth: Current Modified [place] Score: 4 TREATMENT / EDUCATION / INTERVENTIONS: While performing OT, Patient was instructed in:functional mobility training, self-care training, safety awareness/fall precautions Presented to patient who demonstrates Fair understanding of instructions given. INFORMED CONSENT TO TREATMENT: Plan of care including recommended therapy, goals and frequency, discussed with patient who understands and agrees to proceed. ASSESSMENT: Functional performance limited due to: limited activities of daily living, decreased functional mobility, decreased functional balance, decreased safety awareness and decreased endurance and activitytolerance. Patient continues to benefit from skilled Occupational Therapy to achieve the following functional goals. Short Term Goals: Goal Formation With patient Patient will perform grooming standing at sink and with stand by assist Patient will transfer to standard toilet with minimal assist Patient will perform supine to/from sit with minimal assist Patient will transfer sit to stand with minimal assist Patient will perform bed to chair with minimal assist Non Destructive Testing Scientist Goal(s): Patient to discharge to appropriate next level of inpatient care. Plan: Plan: ADL training Functional transfer training Functional balance training Endurance training Bed mobility training Safety awareness If patient is discharged from the facility, this note serves as a discharge summary if further occupational therapy visits did not occur. Refer to filed flowsheet for further details. Following therapy session, patient left in bed, with bed alarm on , with call light within reach, with RN, aware. * Jaclyn Ballard RN - 08/27/2022 12:21 AM CDT Problem: Fall Risk Goal: Fall risk and fall related injury risk are minimized (interventions related to the fall risk can be found in the flowsheet documentation) Outcome: Progressing Problem: Neurological Deficit Goal: Neurological status is stable or improving Outcome: Progressing Problem: Hemodynamic Status/Cardiac Output Goal: Patient has stable vital signs and fluid balance Outcome: Progressing Problem: Oxygenation/Respiratory Function Goal: Respiratory rate/effort will be within specified limits Outcome: Progressing Problem: Communication Impairment/Dysarthria Goal: Ability to express needs and understand communication Outcome: Progressing Problem: Aspiration Precautions Goal: Patient's risk of aspiration is minimized Outcome: Progressing Problem: Oral Intake: Inadequate oral intake Goal: Total intake will meet estimated nutrient needs Outcome: Progressing Problem: Skin Integrity Goal: Skin integrity is maintained or improved Outcome: Progressing * Nick Rogel DO - 08/26/2022 3:44 PM CDT TRANSFER CHECKLIST: Pertinent comorbidities/PMH: HTN,??CKD stage V,??morphea, Pontine IPH, dysphagia Home meds being held: Nifedipine, pending ability to take PO currently on Amlodipine per NG Intubation/NIPPV days: CPAP as needed @ night Pressor agents and days: None while in ICU ABX indications: Unasyn for aspiration PNA Consult teams past & present: Nephro, Neuro ICU/Stroke, PT/OT, IR Pending work up: Swallow eval Things to watch: Unable to pass swallow may need modified barium vs camera. If continues to fail may need dobhoff vs PEG To address prior to d/c: Neuro BP recc's To address at d/c (f/u etc): Neuro stroke Appt, Nephro Dialysis plan with Dr Reyes * Vanessa Blakely, JUDIT - 08/26/2022 3:34 PM CDT [facility] Swallow Treatment Patient: Kirsty Rea Med Record Number: [id number] Date of : 1940 Age: [age] year old PPE: PPE worn by staff: mask - N95;gloves PPE worn by patient: gown - patient, clean Impressions: Pt continues to present with suspected pharyngeal dysphagia with intermittent clinicalsigns of aspiration following nectar thickened liquid trials provided at the bedside. Pt was able to transition to a standard nasal cannula during HARBORMASTER's visit with adequate oxygen saturations. Recommend Pt remain NPO with tentative plan to complete a repeat MBS tomorrow if Pt is able to remain on astandard nasal cannula. Pt can have ice chips and sips of nectar thickened water provided by corporate staff accountant after oral care until exam can be completed. Recommendations: Diet Liquids Recommendation: NPO Diet Solids Recommendation: NPO Recommended Form of Meds: NPO;Feeding Tube Recommended Tests/Consults: Recommendations: NPO;With Alternative Nutrition;With Ice Chips PRN;Modified Barium Swallow Study Discharge Recommendations: Patient will benefit from intense 3 hour per day multidisciplinary inpatient therapies Speech therapy is recommended to improve swallow function. SUBJECTIVE: Patient Goals: I would love some water Pain Assessment: Pain Rating Score #: 0 Follow-up for pain: No follow-up for pain indicated and patient agreed to proceed with treatment OBJECTIVE: Level of Consciousness: awake but appeared fatigued today, limited verbalizations during visit Positioning: Upright in bed Respiratory Status: RN transitioned Pt from a 15L 02 via venti mask to 4L 02 via nasal cannula during visit Swallow Trials: Pelion Thick Liquid: Presentation: Cup-Assisted;Spoon-Assisted Oral: Within Functional Limits Pharyngeal: Delayed Swallow;Decreased Laryngeal Elevation;Cough - Immediate Assessment: Risk For Aspiration: Moderate Primary Diagnostic Impression - Oral: No dysphagia Primary Diagnostic Impression - Pharyngeal: Moderate Treatment/Education/Interventions: While performing HARBORMASTER, Patient was instructed in: results of swallow evaluation and goals of treatment . Patient demonstrated Fair understanding of instructions given. INFORMED CONSENT TO TREATMENT: Plan of care including recommended therapy, goals and frequency, discussed with patient who understands and agrees to proceed. Short Term Goals Patient will participate in an instrumental swallow assessment as appropriate., Patient will demonstrate an improvement in oropharyngeal swallow function to warrant diet upgrade. Intermediate Goal (s): Patient to be independent/baseline with functional mobility and self care and be able to safely discharge to prior level of care. Plan: NPO with tentative plan for MBS tomorrow (08/27) pending Pt's 02 status. Vanessa Brar M.S., CCC-HARBORMASTER Speech Language Pathologist [phone] * Nick Rogel, DO - 08/26/2022 11:07 AM CDT MICU Progress Note 08/26/2022 11:33 AM Patient: Kirsty Rea (:1940) Room: [facility] Admit Date: 08/15/2022. Hospital Day: 11 CC: Weakness Hospital Course: Mrs Rea??81 year old??female??w/ hx of HTN,??CKD stage IV-V,??morphea, who presented to [facility] on??08/15/22??as OSH transferred for management of pontine intraparenchimal bleed. Patient presented to OSH??for nausea, vomiting and weakness. CTH??at OSH showed??pontine IPH measuring 9*8*10 mmwithout mass effect.??Patient BP has been elevated during hospitalization and required IV anti- HTN. Also patient developed worsening dysphagia and she was choking on her PO medications and she was not able to tolerate PO intake so she missed PO anti-HTN meds.? Patient transferred to the ICU for better control of her BP with drips, worsening mental status, and worsening hypoxia. On physical exam patient was AOx3 awake, alert and resonds to quesitons coherently.??Patient received emergent dialysis, and now with permanent tunneled dialysis catheter. Interval History: Patient continues on Venti mask. Pt??recieved??dialysis yesterday again. Pt continued to require Nicardipine drip for BP control, now off drip this AM. Received IR guided tunneled HD cath yesterday. Objective: Vitals: 08/26/22 0900 08/26/22 0930 08/26/22 1000 08/26/22 1100 BP: 150/64 136/76 143/65 Pulse: 89 84 83 Resp: 23 20 19 Temp: SpO2: 92% 95% 94% 96% Weight: Height: Date 08/25/22 0700 - 08/26/22 0659 08/26/22 0700 - 08/27/22 0659 Shift 7144-5106 2689-7338 0711-7061 24 Hour Total 2681-3055 6812-4612 2532-9653 24 Hour Total INTAKE I.V.(mL/kg/hr) 267(0.4) 1(0) 584.2(0.9) 852.2(0.4) 109.1 109.1 Tube 150 100 250 500 100 100 Enteral 161 395 556 Shift Total(mL/kg) 417(5) 262(3.1) 1229.2(14.9) 1908.2(23.1) 209.1(2.5) 209.1(2.5) OUTPUT Urine(mL/kg/hr) 100(0.1) 0(0) 100(0.1) Blood Loss 5 5 Shift Total(mL/kg) 105(1.3) 0(0) 105(1.3) NET 457 475 5123.2 1803.2 209.1 209.1 Weight (kg) 84 84 82.5 82.5 82.5 82.5 82.5 82.5 O2 %: 40 % Physical Exam General - NAD, afebrile, non cachectic HEENT??- NC/AT, EOMI, clear conjunctivae, throat without erythema or exudate, moist mucous membranes Neck??- Supple, no LAD, no JVD Chest??- Diffuse wheezes, no crackles.?? CV - RRR no murmurs, radial and DP pulses 2/4, good capillary refill Abdomen - Soft, NT/ND, +BS, no organomegaly Musculoskeletal - Moves all four extremities Extremities??- No c/c/e Skin??- No rashes, lesions or jaundice Neurologic??- A&O x 3, no focal neurological deficits Psych??- Appropriate mood and affect?? Labs: CBC: Recent Labs Component Name 08/26/22 0330 08/25/228 08/24/22 0231 WBC 8.0 8.9 9.1 HGB 7.3* 7.9* 7.2* HCT 21.7* 22.7* 21.5* BMP: Recent Labs Component Name 08/26/22 0330 08/25/22161108/25/22337 NA 139 140 140 141 CL 99 99 99 99 CO2 31* 28 28 29 BUN 27* 17 17 23 CREATININE 1.91* 1.42* 1.42* 1.83* CALCIUM 8.2* 8.0* 8.0* 8.5 PHOS 2.3* 2.5* 1.6* Hepatic: Recent Labs Component Name 08/26/22 0330 08/25/22 1612 08/25/228 08/22/22 0747 08/19/22 1056 08/17/22 0405 03/09/22 1312 ALT - - - - - - 12 AST - - - - - - 14 PROT - - - - 4.9* 5.1* - ALB 2.6* 2.6* 2.7* - - 2.8* - ALKPHOS - - - - - - 72 - = values in this interval not displayed. Coagulation: Recent Labs Component Name 08/26/22 0330 08/25/228 08/24/22 0231 PT 12.9 12.3 12.3 INR 1.0 0.9 0.9 Cardiac Markers: Recent Labs Component Name 08/22/22 0747 08/21/22 2340 08/21/22 1655 TROPONINI 0.037* 0.058* 0.054* ABGs: No results for input(s): PHART, PO2ART, PVK2MWK, BEART in the last 16011 hours. Micro: Reviewed Imaging: Imaging reviewed. Assessment: Acute renal failure (ARF) (CMS/HCC) POA: Yes Intracranial hemorrhage, nontraumatic (CMS/HCC) POA: Yes Pleural effusion POA: Yes Aspiration pneumonia (CMS/HCC) POA: Yes Dysphagia POA: Yes Hyponatremia POA: Yes Elevated troponin POA: Yes Hypoalbuminemia POA: Yes High anion gap metabolic acidosis POA: Yes Normocytic anemia POA: Yes Acute decompensated heart failure (CMS/HCC) POA: No Respiratory failure with hypoxia (CMS/HCC) POA: Yes Hypertensive emergency POA: Yes PLAN: Neurological: RASS goal -1??to??0 ?? #Intraparenchymal pontine bleed. #Altered mental status. -At OSH??CTH??showed pontine intraparenchimal bleed. -On repeat CTH??here, same -Neurosurgery, re-consulted for updated BP recc's at this time -prior Neurology BP goal <160, control hypoglycemia, hyponatremia, and hyperthermia. ?? -frequent re-orientation ?? Cardiovascular: MAP goal -??>65??mmHg ?? #HTN emergency Patient BP uncontrolled in the setting of missing PO meds. -On nicardipine drip??since??08/22, now off this AM. BP goal <160 Plan: Pt's PM BP is issue will adjust dose timing some to improve PM coverage. Continue Clonidine??0.2 mg TID,??amlodipine??10 mg QHS,??Hydralazine 100 mg TID, continue Losartan 100 mg QD, labetalol 200mg Q8 Continue Nicardipine drip TTE shows EF 60% and??Mild pulmonary hypertension, estimated pulmonary arterial systolic pressure is 36 mmHg.?? Pulmonary: SpO2 goal -??>90% ?? #AHRF??2/2 COPD exacerbation, Pulmonary Edema On Venti??mask??and CPAP as needed overnight ?? #Aspiration pneumonia -CT scan showed??Indeterminate masslike para-bronchovascular consolidation along with segmental right lower lobe bronchus with interval development of right lower lobe atelectatic collapse. -Started on??Unasyn, will CTM ?? #Pulmonary edema - CT scan showed??1.Bilateral, moderate right and small left, pleural effusions. 2.Suggestion of pulmonary congestion in the setting of mild cardiomegaly -??completed another round dialysis today 08/25 ?? #COPD exacerbation -45 years Hx of smoking -Wheezing on PE -Duonebs??Q4??PRN ?? GI:?? Tube feeds Nepro??40??ml/hr, water flush 100 mg q6 to resume after IR procedure, continue to work with Speech to evaluate swallow issues. Gluco check Q6? Renal:?? #TOÑA on CKD -Baseline Cr 3.3 -Pre-renal in the setting of volume loss. -Neophrology consulted appreciate recc's ?? Plan: -??sodium bicarb 1300 tid - f/u SPEP/UPEP and immunofixation??from 08/19 -??EPO 7000 units/week - Avoid nephrotoxic medications and renally dose??medications ?? #hyponatremia -ddx: pre renal etiology c/f??SIADH,??hypovolemia, contrast induced, hx of nephrotic range proteinuria, CKD stage 5.?? - improvement of hyponatremia 127 >??129? - TSH 4.65, Triglycerides 64 - urine labs, showed Na>75, FeNa 39.4%, suggesting intra-renal.?? - consider SIADH in the setting of increased urine osmolality with an increase in urine sodium Plan: -Continue fluid??restriction to 1L/24 hrs?? -??CTM ?? #urinary retention - patient with new onset urinary retention on admission - likely 2/2 clonidine use and inpatient hospitilization - would not change clonidine dose as patient is stable on hypertensive regimen and risks outweigh benefit for repeat intracranial bleed. PLAN: - bladder scans??PRN, straight cath if >??350cc ?? Endocrine: BGM goal 140-180 mg/dL ?? ID:?? See Pulm??for aspiriation??pneumonia ?? Heme/Onc:?? #Normocytic??anemia??2/2 CKD -??Hgb at presentation initially 8.4 (baseline) but dropped to 7.0 following IVF - Iron studies ordered while inpatient ??w/normal iron, although no ferritin -??Type and cross and 1unit pRBCs 08/18/22 for Hb of 6.2 PLAN: -??EPO 7000 units/week, received 3 days iron IV supplementation - CTM Hgb, Transfuse for Hgb < 7.0 ?? FEN: -Monitor electrolytes QD, Replace K<4, Mg<2, Phos<3 ? Lines: Type:??NG tube (08/22), Tunneled dialysis cath from IR, urinary catheeter, PIV x2 Prophylaxis: Aspiration precautions w/ HOB elevation by 30 degrees GI prophyalxis w/ famotidine DVT prophyalxis w/ SCDs, Heparin Diet: ??TF, Nepro Activity: ??Bedrest Disposition: ICU Monitoring?? Code Status: Full Code Nick Boris Rogel DO Associated attestation - Ashvin Barber MD - 08/26/2022 2:20 PM CDT I have seen and examined the patient with the resident and I agree with the findings and plan of care as documented by the resident. Date of Service: 08/26/22 Ashvin Barber MD * María Isaac MD - 08/26/2022 10:12 AM CDT Nephrology Progress Note 08/26/2022 10:12 AM Patient Name: Kirsty Rea (81 year old) Room Number: 303/01 Attending: Ashvin Barber MD Hospital Day: 11 Subjective: Interval history: - No acute issues or events overnight - Underwent HD yesterday; had 2L of fluid removed prior to stopping in order to go for permcath placement - Permcath placed yesterday without issue - Doing well this AM; subjectively says breathing is slightly improved although still remains on same supplemental O2 support as previous days Objective: Patient Vitals for the past 6 hrs: Temp Pulse Resp BP BP Method 08/26/22 0845 -- 88 22 150/63 -- 08/26/22 0833 99.4 ??F (37.4 ??C) -- -- -- -- 08/26/22 0830 -- 85 22 147/75 -- 08/26/22 0815 -- 82 19 134/61 -- 08/26/22 0800 -- 79 18 127/56 Automatic 08/26/22 0734 -- -- -- 127/52 -- 08/26/22 0700 -- 79 20 127/56 Automatic 08/26/22 0614 -- -- -- 129/54 -- 08/26/22 0600 -- 81 28 (!) 162/128 Automatic 08/26/22 0531 -- 93 -- 155/64 -- 08/26/22 0500 -- 92 22 151/64 Automatic 08/26/22 0434 -- -- -- 168/65 -- Intake/Output Summary (Last 24 hours) at 08/26/2022 1012 Last data filed at 08/26/2022 0853 Gross per 24 hour Intake 2017.29 ml Output 55 ml Net 1962.29 ml Physical Exam General: Appears uncomfortable but slightly improved from yesterday. Sitting up in chair w/HOB elevated. HENT: NC/AT Eyes: Anicteric. Non-injected. Chest: Breath sounds decreased (R>L) without significant change from prior. No increased work ofbreathing on ventimask. Permcath at right chest. Cardiovascular: RRR. No murmurs, rubs, or gallops Abdomen: Soft. NT/ND. Normal BS+. : Quijano catheter in place Extremities: No signs of clubbing, cyanosis, or edema. Skin: Warm. Dry. Neurological: AOx2-3, drifts in and out of conversation but improving; conversational and follows commands. Moves all extremities spontaneously without issue. No focal deficits. Psych: Appropriate mood and affect Medications SCHEDULED MEDICATIONS: 0.9% NaCl injection 3 mL, Intracatheter, q8h albuterol-ipratropium (Duo-Neb) nebulizer solution 3 mL, Inhalation, q4h amLODIPine (Norvasc) tablet 10 mg, Enteral Tube, QDAY ampicillin-sulbactam (Unasyn) 3 g in 0.9% NaCl IV 100 mL IVPB, Intravenous, q24h cloNIDine (Catapres) tablet 0.2 mg, Enteral Tube, TID epoetin deyanira-EPBX (Retacrit) injection 7,000 Units, Subcutaneous, q7 days heparin injection 5,000 Units, Subcutaneous, TID hydrALAZINE (Apresoline) tablet 100 mg, Enteral Tube, TID labetalol (Normodyne; Trandate) tablet 200 mg, Enteral Tube, q8h losartan (Cozaar) tablet 50 mg, Enteral Tube, QDAY polyethylene glycol 3350 (Miralax) packet 17 g, Enteral Tube, QDAY senna (Senokot) tablet 17.2 mg, Enteral Tube, QDAY [COMPLETED] iron sucrose (Venofer) injection 200 mg, Intravenous, Once [COMPLETED] potassium - sodium phosphates (Phos-Nak) powder 1 packet, Enteral Tube, Once ?? [COMPLETED] sodium - potassium phosphates (K Phos Neutral) tablet 1 tablet, Oral, TID CONTINUOUS MEDICATIONS: ?? niCARdipine (Cardene) 20 mg in 0.9% NaCl 200 mL infusion, Intravenous, Continuous PRN MEDICATIONS: 0.9% NaCl injection 1-10 mL, Intracatheter, PRN acetaminophen (Tylenol) tablet 500 mg, Enteral Tube, q4h PRN albuterol HFA (Proventil; Ventolin; Proair) 108 (90 Base) MCG/ACT inhaler 2 puff, Inhalation, q6h PRN hydrALAZINE (Apresoline) injection 15 mg, Intravenous, q4h PRN ?? labetalol (Normodyne; Trandate) injection 20 mg, Intravenous, q2h PRN Data Review Recent Labs Component Name 08/26/2232908/25/2233708/24/22230 WBC 8.0 8.9 9.1 HGB 7.3* 7.9* 7.2* HCT 21.7* 22.7* 21.5* PLTCOUNT 193 208 192 Recent Labs Component Name 08/26/2232908/15/2233803/09/22 1312 SODIUM - - 140 POTASSIUM 3.2* - 3.9 CHLORIDE - - 109 CO2 31* - 21 BUN 27* - 65* CREATININE 1.91* - 2.74* CALCIUM 8.2* - 8.7 ALBUMIN - - 3.6 ALT - - 12 AST - - 14 GLUCOSE 144* - 99 - = values in this interval not displayed. Recent Labs Component Name 08/26/2232908/25/2233708/24/22 023 INR 1.0 0.9 0.9 Microbiology: [facility] Imaging: [facility]ed [facility] Assessment and Plan: #TOÑA on CKD5 #Non-Anion Gap Metabolic Acidosis - Most likely prerenal in setting of vomiting, blood loss, diuretic use prior to presentation; other less likely etiologies include obstruction (does have some retention but urinary habits unchanged from home), infection (trace bacteria but no other signs to suggest) - Baseline Cr around 3.3 since 04/2022; CKD 2/2 HTN - Sees nephrology (Dr. Reyes) as outpatient; recent biopsy due to nephrotic range proteinuria that noted hypertensive nephrosclerosis, no acute findings - R IJ CVC placed 08/23 to initiate HD, replaced by permcath on 08/25 PLAN: - Hold on HD today; will resume tomorrow - Strict I/O - Continue sodium bicarb 1300mg TID - Avoid nephrotoxic medications and renally dose all medications that are given ?? #Hyponatremia (Resolved) - Sodium gradually down-trending while hospitalized; additional urine studies sent on 08/19 - Urine Osm: 288 - Urine Sodium: < 20 - Urine Protein/Creatinine: 1.70 - c/f SIADH as etiology; sodium has improved with free water restriction, lasix - TSH and triglycerides both normal - SPEP/UPEP ordered on 08/19 without signs of monoclonal immunoglobulins - Improved since starting HD PLAN: - sodium bicarb as above ?? #Hypertension - Home Medications: HCTZ 12.5mg daily, Nifedipine ER 90mg, Labetalol 200mg BID - SBPs have been 130s-150s while here at [facility] - Has had clonidine and hydralazine added while hospitalized; medications further adjusted given issues with swallowing, was on nicardipine gtt for short period as well PLAN: - Continue home labetalol - Continue clonidine 0.2mg TID, hydralazine 100mg TID, amlodipine 10mg, losartan 100 - Home nifedipine held as cannot be given via NG ? #Normocytic Anemia - Hgb at presentation initially 8.4 (baseline) but dropped to 7.0 following IVF - Likely has component of anemia of chronic disease 2/2 renal dysfunction - Iron studies ordered this hospitalization: - Iron 77 - TSat 31% - TIBC 248 - Ferritin 180 - Iron studies suggesting mixed picture of iron deficiency and anemia of chronic disease PLAN: - Refused Retacrit 7000U; can consider giving if amenable while inpatient - Consider IV Iron 200mg (can give up to 5 doses over 14 day period; recommend up to 5 days worth or throughout remainder of inpatient stay if shorter than 5 days) - Transfuse for Hgb < 7.0 ? Patient will be seen and discussed with attending physician, Dr. Cintron. María Isaac MD Internal Medicine, PGY-3 08/26/2022 10:12 AM Associated attestation - Peggy Cintron MD - 08/26/2022 3:12 PM CDT Attending Addendum I have seen and examined the patient with the renal team today. I agree with the findings and plan of care as documented by the resident. In addition I note: 81 yo female with advanced chronic kidney disease due to hypertensive nephrosclerosis per kidney biopsy (based on Dr. Reyes's note) and other medical problems as per consult note, was transferred from OSH for further management of ICH. The patient remains in ICU and using use venti mask. She received a hemodialysis treatment and RIJ tunneled dialysis catheter placement yesterday (the exit site without active bleeding or drainage). Minimal urine output. She continues to use venti mask She appears weak though somewhat more alert. To administer another hemodialysis treatment tomorrow and attempt UF as tolerated. Please see resident's note for further details. * Miranda Gleason RCP - 08/26/2022 4:11 AM CDT Pt did not wear CPAP machine last night. Pt did not feel she needed it, she was able to keep her saturation level up with the 50% venti mask. RT will continue to monitor pt. * Kinsey Ya RN - 08/25/2022 11:57 PM CDT Problem: Fall Risk Goal: Fall risk and fall related injury risk are minimized (interventions related to the fall risk can be found in the flowsheet documentation) Outcome: Progressing Problem: Neurological Deficit Goal: Neurological status is stable or improving Outcome: Progressing Problem: Hemodynamic Status/Cardiac Output Goal: Patient has stable vital signs and fluid balance Outcome: Progressing Problem: Oxygenation/Respiratory Function Goal: Respiratory rate/effort will be within specified limits Outcome: Progressing Problem: Mobility Goal: Patient's mobility/activity will be maintained as optimum level for age, diagnosis and physical limitations Outcome: Not Progressing Goal: Continuum of care needs are further met through referral to outpatient services when appropriate. Outcome: Not Progressing Goal: Patient reports the ability to perform Activities of Daily Living. Outcome: Not Progressing Problem: Communication Impairment/Dysarthria Goal: Ability to express needs and understand communication Outcome: Progressing Problem: Nutrition Goal: Nutritional status is improving Outcome: Progressing Problem: Aspiration Precautions Goal: Patient's risk of aspiration is minimized Outcome: Progressing Problem: Glycemic Control Goal: Clinical indication of glycemia balance is achieved Outcome: Progressing Problem: Knowledge Deficit,Education,Discharge Plan Goal: The patient/family will understand cerebrovascular disease and its symptoms, treatment and management Outcome: Progressing * Kinsey Ya RN - 08/25/2022 11:46 PM CDT Pt. Reports feeling like she has increased swelling in bilateral hands and decreased sensation in her fingers and a little bit in her toes. Pt. Hands do not appear to be more swollen than earlier. Pt. Does appear to have slightly increased swelling in bilateral feet * Vanessa Blakely SLP - 08/25/2022 2:45 PM CDT [facility] Physical Medicine and Rehabilitation Bedside Swallow Assessment Patient: Kirsty Rea [facility] Record Number: [id number] Date of : 1940 Age: [age] year old Patient Active Problem List: Osteoporosis Hearing loss [...] acidosis Normocytic anemia Acute decompensated heart failure ([facility]) Respiratory failure with hypoxia ([facility]) Hypertensive emergency Past Medical History: Diagnosis Date ??? CKD (chronic kidney disease) stage 3, GFR 30-59 ml/min ([facility]) proteinuria ??? HTN (hypertension), benign ??? 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 Morphea ??? Osteopenia In addition to the 1:1 evaluation of the patient, additional eval time was spent completing the chart review prior to the assessment, completing the multidisciplinary plan of care and education plan post evaluation and communicating results of the eval to other treatment team members. PPE: PPE worn by staff: mask - N95;gloves PPE worn by patient: gown - patient, clean Impressions: Limited [facility] evaluation this date given Pt only agreed to sips of nectar thickened liquids, however continue to suspect incomplete airway protection during the swallow given Pt's continued clinical signs of aspiration during oral intake. Given Pt's increasing 02 needs since MBS on 08/22and given continued clinical signs of aspiration with oral intake, will recommend Pt remain NPO x minimal sips of nectar thickened water for pleasure with plan to repeat MBS vs FEES depending on Pt's02 requirements and respiratory status. [facility] will plan to follow up for ongoing assessment with further recommendations to follow. Recommendations: Diet Liquids Recommendation: NPO Diet Solids Recommendation: NPO Recommended Form of Meds: NPO;Feeding Tube Pt ok for minimal sips of nectar thickened water by corporate staff accountant (no more than 1-2 sips per hour) Recommended Tests/Consults: Recommendations: Modified Barium Swallow Study;F.E.E.S Discharge Recommendations: Patient will benefit from intense 3 hour per day multidisciplinary inpatient therapies Speech therapy is recommended to improve swallow function. SUBJECTIVE: Patient Goals: water Pain Assessment: Pain Rating Score #: 0 Follow-up for pain: No follow-up for pain indicated and patient agreed to proceed with treatment OBJECTIVE: Level of Consciousness: alert Orientation Level: oriented to person, oriented to place, oriented to situation Positioning: Upright in bed Respiratory Status: mask - venti 15L 02 at 50% Fi02 Oral/Motor: Dentition: Dentures;Partials Oral Hygiene : Xerostomic (dry mouth) Labial/Facial: Within Functional Limits Tongue: Within Functional Limits Vocal Quality: Impaired (decreased intensity) Velopharyngeal Status: (unable to assess) Oral Motor Coordination: Within Functional Limits Controls Secretions: Yes Swallow Trials: Pelion Thick Liquid: Presentation: Cup-Assisted Oral: Within Functional Limits Pharyngeal: Delayed Swallow;Decreased Laryngeal Elevation;Cough - Immediate (intermittnet cough noted throughout visit) Assessment: Risk For Aspiration: Moderate Primary Diagnostic Impression - Oral: No dysphagia Primary Diagnostic Impression - Pharyngeal: Moderate Education/Interventions: While performing [facility]STER, Patient was instructed in: results of swallow evaluation and goals of treatment . Patient demonstrated Fair understanding of instructions given. Nurse contacted regarding results of swallow evaluation and recommendations. INFORMED CONSENT TO TREATMENT: Plan of care including recommended therapy, goals and frequency, discussed with patient who understands and agrees to proceed. Short Term Goals Patient will participate in an instrumental swallow assessment as appropriate. Non Destructive Testing Scientist Goal (s): Patient to be independent/baseline with functional mobility and self care and be able to safely discharge to prior level of care. Plan: Continue NPO x minimal sips of nectar thickened water with corporate staff accountant, will follow up for repeat assessment tomorrow with potential plan for MBS vs FEES pending Pt's respiratory status. Vanessa Barr M.S., [facility] Speech Language Pathologist [phone] * Sho Rogel RN - 08/25/2022 1:31 PM CDT Interventional Radiology Nursing - End Procedure Note Sedation: Anesthesia (MAC/General) Sedation start time: 0000 hours Procedure start time: 1208 hours Procedure end time: 1235 hours Additional drugs: None Contrast: 00 mL of Isovue-300 Fluoroscopy time: 0.6 min * Nick Rogel DO - 08/25/2022 1:13 PM CDT MICU Progress Note 08/25/2022 1:23 PM Patient: Kirsty Rea (:1940) Room: [facility] Admit Date: 08/15/2022. Hospital Day: 10 CC: Weakness Hospital Course: Mrs Rea??81 year old??female??w/ hx of HTN,??CKD stage IV-V,??morphea, who presented to [facility] on??08/15/22??as OSH transferred for management of pontine intraparenchimal bleed. Patient presented to OSH??for nausea, vomiting and weakness. CTH??at OSH showed??pontine IPH measuring 9*8*10 mmwithout mass effect.??Patient BP has been elevated during hospitalization and required IV anti- HTN. Also patient developed worsening dysphagia and she was choking on her PO medications and she was not able to tolerate PO intake so she missed PO anti-HTN meds.? Patient transferred to the ICU for better control of her BP with drips, worsening mental status, and worsening hypoxia. On physical exam patient was AOx3 awake, alert and resonds to quesitons coherently. Patient received temporary dialysis catheter and emergent dialysis. Pt continues on Nicardipine drip for BP management. Interval History: Patient continues on Venti mask with CPAP as needed. Pt recieving dialysis today again. Pt continues to require Nicardipine drip for BP control, will continue to optimize BP meds as able. Received IRguided tunneled HD cath today. Objective: Vitals: 08/25/22 1100 08/25/22 1115 08/25/22 1130 08/25/22 1300 BP: 136/68 149/69 146/68 152/77 Pulse: 80 82 85 87 Resp: 20 Temp: 98.7 ??F (37.1 ??C) SpO2: 95% 95% 96% 95% Weight: Height: Date 08/24/22 0700 - 08/25/22 0659 08/25/22 0700 - 08/26/22 0659 Shift 8644-5690 2300-7948 4330-5798 24 Hour Total 9824-6144 8864-5121 4848-5771 24 Hour Total INTAKE I.V.(mL/kg/hr) 346.1(0.5) 78.7(0.1) 142.2(0.2) 567(0.3) 196.8 196.8 Tube 150 50 50 250 100 100 Enteral 103 146 312 561 Shift Total(mL/kg) 599.1(7.4) 274.7(3.4) 504.2(6) 1378(16.4) 296.8(3.5) 296.8(3.5) OUTPUT Urine(mL/kg/hr) 175(0.3) 25(0) 100(0.1) 300(0.1) 50 50 Blood Loss 5 5 Ultrafiltration 2000 1999 Shift Total(mL/kg) 175(2.1) 202(24.8) 100(1.2) 2300(27.4) 55(0.7) 55(0.7) NET 424.1 -1750.3 404.2 -922 241.8 241.8 Weight (kg) 81.5 81.5 84 84 84 84 84 84 PEEP/CPAP: 8 cm H20 O2 %: 50 % Physical Exam General - NAD, afebrile, non cachectic HEENT??- NC/AT, EOMI, clear conjunctivae, throat without erythema or exudate, moist mucous membranes Neck??- Supple, no LAD, no JVD Chest??- Diffuse wheezes, no crackles.?? CV - RRR no murmurs, radial and DP pulses 2/4, good capillary refill Abdomen - Soft, NT/ND, +BS, no organomegaly Musculoskeletal - Moves all four extremities Extremities??- No c/c/e Skin??- No rashes, lesions or jaundice Neurologic??- A&O x 3, no focal neurological deficits Psych??- Appropriate mood and affect?? Labs: CBC: Recent Labs Component Name 08/25/2233708/24/22 0231 08/23/22 0422 WBC 8.9 9.1 8.6 HGB 7.9* 7.2* 7.5* HCT 22.7* 21.5* 22.3* BMP: Recent Labs Component Name 08/25/2233708/24/22 16308/24/22 0231 NA 141 136 135* CL 99 99 97* CO2 29 23 21* BUN 23 50* 41* CREATININE 1.83* 3.08* 2.72* CALCIUM 8.5 8.6 8.6 PHOS 1.6* 4.5 4.7 Hepatic: Recent Labs Component Name 08/25/2233708/24/22 1636 08/24/22 0231 08/22/22 0747 08/17/22 0405 03/09/22 1312 ALT - - - - - 12 AST - - - - - 14 PROT - - - - 5.1* - ALB 2.7* 2.6* 2.8* - 2.8* - ALKPHOS - - - - - 72 - = values in this interval not displayed. Coagulation: Recent Labs Component Name 08/25/22 0338 08/24/22 0231 08/23/22 0422 PT 12.3 12.3 13.0 INR 0.9 0.9 1.0 Cardiac Markers: Recent Labs Component Name 08/22/22 0747 08/21/22 2340 08/21/22 1655 TROPONINI 0.037* 0.058* 0.054* ABGs: No results for input(s): PHART, PO2ART, WGL4CAD, BEART in the last 31902 hours. Micro: Reviewed, not collected sputum culture now 3 days since start Abx. Imaging: Imaging reviewed. Assessment: Acute renal failure (ARF) (CMS/HCC) POA: Yes Intracranial hemorrhage, nontraumatic (CMS/HCC) POA: Yes Pleural effusion POA: Yes Aspiration pneumonia (CMS/HCC) POA: Yes Dysphagia POA: Yes Hyponatremia POA: Yes Elevated troponin POA: Yes Hypoalbuminemia POA: Yes High anion gap metabolic acidosis POA: Yes Normocytic anemia POA: Yes Acute decompensated heart failure (CMS/HCC) POA: No Respiratory failure with hypoxia (CMS/HCC) POA: Yes Hypertensive emergency POA: Yes PLAN: Neurological: RASS goal -1??to??0 ?? #Intraparenchymal pontine bleed. #Altered mental status. -At OSH??CTH??showed pontine intraparenchimal bleed. -On repeat CTH??here, same -Neurosurgery no intervention -Neurology BP goal <160, control hypoglycemia, hyponatremia, and hyperthermia. ?? -frequent re-orientation ?? Cardiovascular: MAP goal -??>65??mmHg ?? #HTN emergency Patient BP uncontrolled in the setting of missing PO meds. -On nicardipine drip since 08/22 BP goal <160 Plan: Continue Clonidine 0.2 mg TID,??amlodipine 10 mg QD, Hydralazine 100 mg TID, Started Losartan 50 mgQD Continue Nicardipine drip TTE shows EF 60% and Mild pulmonary hypertension, estimated pulmonary arterial systolic pressure is36 mmHg.?? Pulmonary: SpO2 goal -??>90% ?? #AHRF??2/2 COPD exacerbation, Pulmonary Edema On Venti??mask and CPAP as needed overnight ?? #Aspiration pneumonia -CT scan showed??Indeterminate masslike para-bronchovascular consolidation along with segmental right lower lobe bronchus with interval development of right lower lobe atelectatic collapse. -Started on??Unasyn, will CTM ?? #Pulmonary edema - CT scan showed??1.Bilateral, moderate right and small left, pleural effusions. 2.Suggestion of pulmonary congestion in the setting of mild cardiomegaly -??completed another round dialysis today 08/25 ?? #COPD exacerbation -45 years Hx of smoking -Wheezing on PE -Duonebs??Q4??PRN -??Unasyn started ?? GI:?? Tube feeds Nepro 40 ml/hr, water flush 100 mg q6 to resume after IR procedure Gluco check Q6? Renal:?? #TOÑA on CKD -Baseline Cr 3.3 -Pre-renal in the setting of volume loss. -Neophrology consulted and will get gialysis??today? Plan: -??sodium bicarb 1300 tid - f/u SPEP/UPEP and immunofixation??from 08/19 -??EPO 7000 units/week, Iron IV 200 mg again today - Avoid nephrotoxic medications and renally dose??medications ?? #hyponatremia -ddx: pre renal etiology c/f??SIADH,??hypovolemia, contrast induced, hx of nephrotic range proteinuria, CKD stage 5.?? - improvement of hyponatremia 127 >??129? - TSH 4.65, Triglycerides 64 - urine labs, showed Na>75, FeNa 39.4%, suggesting intra-renal.?? - consider SIADH in the setting of increased urine osmolality with an increase in urine sodium Plan: -Continue fluid??restriction to 1L/24 hrs?? -??CTM ?? #urinary retention - patient with new onset urinary retention on admission - likely 2/2 clonidine use and inpatient hospitilization - would not change clonidine dose as patient is stable on hypertensive regimen and risks outweigh benefit for repeat intracranial bleed. PLAN: - bladder scans??PRN, straight cath if >??350cc ?? Endocrine: BGM goal 140-180 mg/dL ?? ID:?? See Pulm??for aspiriation??pneumonia ?? Heme/Onc:?? #Normocytic??anemia??2/2 CKD -??Hgb at presentation initially 8.4 (baseline) but dropped to 7.0 following IVF - Iron studies ordered while inpatient ??w/normal iron, although no ferritin -??Type and cross and 1unit pRBCs 08/18/22 for Hb of 6.2 PLAN: -??EPO 7000 units/week (declined dose this week) - Iron 200 mg, Today. May do 2 more days as needed - CTM Hgb, Transfuse for Hgb < 7.0 ?? FEN: -Monitor electrolytes QD, Replace K<4, Mg<2, Phos<3 ? Lines: Type:??NG tube (08/22), Tunneled dialysis cath from IR, urinary catheeter, PIV x2 Prophylaxis: Aspiration precautions w/ HOB elevation by 30 degrees GI prophyalxis w/ famotidine DVT prophyalxis w/ SCDs, Heparin Diet: ??TF, Nepro Activity: ??Bedrest Disposition: ICU Monitoring?? Code Status: Full Code Nick Rogel DO Associated attestation - Ashvin Barber MD - 08/25/2022 9:13 PM CDT I have seen and examined the patient with the resident and I agree with the findings and plan of care as documented by the resident. Date of Service: 08/25/22 Ashvin Barber MD * Sho Rogel RN - 08/25/2022 12:33 PM CDT RIJ permaath placed & RIJ vascath removed per Dr. Ruiz. Anesthesia monitored patient. In no apparent distress. Report called to MANAGER PHOTO. * María Isaac MD - 08/25/2022 11:48 AM CDT Nephrology Progress Note 08/25/2022 11:49 AM Patient Name: Kirsty Rea (81 year old) Room Number: 303/01 Attending: Ashvin Barber MD Hospital Day: 10 Subjective: Interval history: - No acute events or issues overnight - BP elevated overnight and nicardipine gtt restarted w/better control - Tolerated HD well yesterday w/removal of 2L of fluid in addition to her urine output - Says she is feeling a little better today but that breathing is unchanged; objectively her venti-mask was increased from 12L to 15L overnight Objective: Patient Vitals for the past 6 hrs: Temp Pulse Resp BP BP Method 08/25/22 1130 -- 85 -- 146/68 -- 08/25/22 1115 -- 82 -- 149/69 -- 08/25/22 1100 -- 80 -- 136/68 -- 08/25/22 1045 -- 78 -- 121/61 -- 08/25/22 1030 -- 80 -- 128/62 -- 08/25/22 1015 -- 82 -- 131/59 -- 08/25/22 1000 -- 85 -- 138/56 -- 08/25/22 0945 -- 84 -- 141/69 -- 08/25/22 0930 -- 86 -- 136/57 -- 08/25/22 0915 -- 92 -- 156/59 -- 08/25/22 0900 -- 92 -- 161/66 -- 08/25/22 0845 -- -- -- (!) 182/71 -- 08/25/22 0840 -- 96 10 -- -- 08/25/22 0838 -- -- -- (!) 190/79 -- 08/25/22 0830 -- 86 30 (!) 190/79 -- 08/25/22 0800 98.9 ??F (37.2 ??C) 87 25 139/63 Automatic 08/25/22 0700 -- 80 21 146/59 Automatic 08/25/22 0607 -- 90 -- 151/63 -- 08/25/22 0600 -- 89 18 154/60 Automatic Intake/Output Summary (Last 24 hours) at 08/25/2022 1149 Last data filed at 08/25/2022 1034 Gross per 24 hour Intake 1055.85 ml Output 2200 ml Net -1144.15 ml Physical Exam General: Appears mildly uncomfortable. Sitting up in chair w/HOB elevated. HENT: NC/AT Neck: R IJ CVC in place Eyes: Anicteric. Non-injected. Chest: Breath sounds decreased (R>L) without significant change from prior. No increased work ofbreathing on ventimask. Cardiovascular: RRR. No murmurs, rubs, or gallops Abdomen: Soft. NT/ND. Normal BS+. : Quijano catheter in place Extremities: No signs of clubbing, cyanosis, or edema. Skin: Warm. Dry. Neurological: AOx2-3, drifts in and out of conversation but improving; conversational and follows commands. Moves all extremities spontaneously without issue. No focal deficits. Psych: Appropriate mood and affect Medications SCHEDULED MEDICATIONS: 0.9% NaCl injection 3 mL, Intracatheter, q8h albuterol-ipratropium (Duo-Neb) nebulizer solution 3 mL, Inhalation, q4h amLODIPine (Norvasc) tablet 10 mg, Enteral Tube, QDAY ampicillin-sulbactam (Unasyn) 3 g in 0.9% NaCl IV 100 mL IVPB, Intravenous, q24h cloNIDine (Catapres) tablet 0.2 mg, Enteral Tube, TID epoetin deyanira-EPBX (Retacrit) injection 7,000 Units, Subcutaneous, q7 days heparin injection 5,000 Units, Subcutaneous, TID hydrALAZINE (Apresoline) tablet 100 mg, Enteral Tube, TID labetalol (Normodyne; Trandate) tablet 200 mg, Enteral Tube, q8h losartan (Cozaar) tablet 50 mg, Enteral Tube, QDAY polyethylene glycol 3350 (Miralax) packet 17 g, Enteral Tube, QDAY senna (Senokot) tablet 17.2 mg, Enteral Tube, QDAY sodium - potassium phosphates (K Phos Neutral) tablet 1 tablet, Oral, TID [COMPLETED] iron sucrose (Venofer) injection 100 mg, Intravenous, Once ?? [COMPLETED] potassium chloride (Klor-Con) packet 40 mEq, Oral, Once CONTINUOUS MEDICATIONS: ?? niCARdipine (Cardene) 20 mg in 0.9% NaCl 200 mL infusion, Intravenous, Continuous PRN MEDICATIONS: 0.9% NaCl injection 1-10 mL, Intracatheter, PRN acetaminophen (Tylenol) tablet 500 mg, Enteral Tube, q4h PRN albuterol HFA (Proventil; Ventolin; Proair) 108 (90 Base) MCG/ACT inhaler 2 puff, Inhalation, q6h PRN hydrALAZINE (Apresoline) injection 15 mg, Intravenous, q4h PRN ?? labetalol (Normodyne; Trandate) injection 20 mg, Intravenous, q2h PRN Data Review Recent Labs Component Name 08/25/2233708/24/2223008/23/22421 WBC 8.9 9.1 8.6 HGB 7.9* 7.2* 7.5* HCT 22.7* 21.5* 22.3* PLTCOUNT 208 192 184 Recent Labs Component Name 08/25/2233708/15/2233803/09/22 1312 SODIUM - - 140 POTASSIUM 2.9* - 3.9 CHLORIDE - - 109 CO2 29 - 21 BUN 23 - 65* CREATININE 1.83* - 2.74* CALCIUM 8.5 - 8.7 ALBUMIN - - 3.6 ALT - - 12 AST - - 14 GLUCOSE 102 - 99 - = values in this interval not displayed. Recent Labs Component Name 08/25/2233708/24/2223008/23/22421 INR 0.9 0.9 1.0 Microbiology: [facility] Imaging: [facility] Assessment and Plan: #TOÑA on CKD5 #Non-Anion Gap Metabolic Acidosis - Most likely prerenal in setting of vomiting, blood loss, diuretic use prior to presentation; other less likely etiologies include obstruction (does have some retention but urinary habits unchanged from home), infection (trace bacteria but no other signs to suggest) - Baseline Cr around 3.3 since 04/2022; CKD 2/2 HTN - Sees nephrology (Dr. Reyes) as outpatient; recent biopsy due to nephrotic range proteinuria that noted hypertensive nephrosclerosis, no acute findings - R IJ CVC placed 08/23 to initiate HD; tolerated sessions on 08/23 and 08/24 PLAN: - Additional HD today, first 2 hours HD and last 1 hour DUF - Planning for permcath placement today w/anesthesia assistance - Replace K today and check level this afternoon to ensure levels are adequate given HD today as well - Continue Quijano and monitor UOP - Continue sodium bicarb 1300mg TID - Avoid nephrotoxic medications and renally dose all medications that are given ?? #Hyponatremia - Sodium gradually down-trending while hospitalized; additional urine studies sent on 08/19 - Urine Osm: 288 - Urine Sodium: < 20 - Urine Protein/Creatinine: 1.70 - c/f SIADH as etiology; sodium has improved with free water restriction, lasix - TSH and triglycerides both normal PLAN: - f/u SPEP/UPEP and immunofixation from 08/19 - sodium bicarb as above - HD as above ?? #Hypertension - Home Medications: HCTZ 12.5mg daily, Nifedipine ER 90mg, Labetalol 200mg BID - SBPs have been 130s-150s while here at [facility] - Has had clonidine and hydralazine added while hospitalized; medications further adjusted given issues with swallowing, was on nicardipine gtt for short period as well PLAN: - Continue home labetalol - Continue clonidine 0.2mg TID, hydralazine 100mg TID, amlodipine 10mg - Home nifedipine held as cannot be given via NG ? #Normocytic Anemia - Hgb at presentation initially 8.4 (baseline) but dropped to 7.0 following IVF - Likely has component of anemia of chronic disease 2/2 renal dysfunction - Iron studies ordered this hospitalization: - Iron 77 - TSat 31% - TIBC 248 - Ferritin 180 - Iron studies suggesting mixed picture of iron deficiency and anemia of chronic disease PLAN: - Refused Retacrit 7000U; can consider giving if amenable while inpatient - Consider IV Iron 200mg (can give up to 5 doses over 14 day period; recommend up to 5 days worth or throughout remainder of inpatient stay if shorter than 5 days) - Transfuse for Hgb < 7.0 ? Patient will be seen and discussed with attending physician, Dr. Cintron. María Isaac MD Internal Medicine, PGY-3 08/25/2022 11:49 AM * Sho Rogel RN - 08/25/2022 11:41 AM CDT Pt arrived to procedure room via RN. Anesthesia assumes care of patient. See anesthesia flowsheets for assessments, vitals, etc. * Pillo Barr RN - 08/25/2022 9:36 AM CDT Duration of Tx: 3 hrs UF goal to be attained 3L. Post Tx note. At 1100 Dr. Woods ordered 1 hr of DUF. Pt was scheduled to have Permacath placement at 1130 and contacted the radiology technologist. Pt received 2 hrs and 50 minutes of dialysis Net UF removed 2 L Catheter packed with saline. * Kinsey Ya RN - 08/24/2022 11:24 PM CDT Problem: Fall Risk Goal: Fall risk and fall related injury risk are minimized (interventions related to the fall risk can be found in the flowsheet documentation) Outcome: Progressing Problem: Neurological Deficit Goal: Neurological status is stable or improving Outcome: Progressing Problem: Hemodynamic Status/Cardiac Output Goal: Patient has stable vital signs and fluid balance Outcome: Progressing Problem: Oxygenation/Respiratory Function Goal: Respiratory rate/effort will be within specified limits Outcome: Progressing Problem: Mobility Goal: Patient's mobility/activity will be maintained as optimum level for age, diagnosis and physical limitations Outcome: Not Progressing Goal: Continuum of care needs are further met through referral to outpatient services when appropriate. Outcome: Not Progressing Goal: Patient reports the ability to perform Activities of Daily Living. Outcome: Not Progressing Problem: Communication Impairment/Dysarthria Goal: Ability to express needs and understand communication Outcome: Progressing Problem: Nutrition Goal: Nutritional status is improving Outcome: Progressing Problem: Aspiration Precautions Goal: Patient's risk of aspiration is minimized Outcome: Progressing Problem: Glycemic Control Goal: Clinical indication of glycemia balance is achieved Outcome: Progressing * Jillian Barr RN - 08/24/2022 8:58 PM CDT Hemodialysis Nursing Documentation 1. Duration of treatment: 3 hrs 2. Access type: CVC RT IJ Non Tunneled cathcath 3. Total ultrafiltration volume: 2000 ml 4. Medications given during the treatment: none 5. Comments and observations: Pt sadie tx well. Saline lock the cath. * Earlene Mclaughlin - 08/24/2022 5:54 PM CDT This mems device scientist responded to referral from unit mems device scientist to provide book for patient. Patient's daughter was present at bedside, patient on breathing mask when mems device scientist arrived. Spray Machine Loader provided book as requested. Patient is aware pastoral care is available as needed and assured of prayer support. Spray Machine Loaderkary Hernandez [phone] (desk [phone]) banquet server on call chaplain Marilee Hernandez [phone] (office [phone]) * Jillian Barr RN - 08/24/2022 5:24 PM CDT REPORT BEFORE DIALYSIS Diagnosis (TOÑA/CRF): TOÑA Non-Renal Diagnosis: CVA Isolation: No active isolations Does patient have signs or symptoms of respiratory infection (fever, cough, shortness of breath): no Allergies Allergen Reactions ??? Ramipril Other Other reaction(s): Other (See Comments) Kidney Damage Kidney Damage Code Status: Full Orientation Status: x2 On telemetry/Rhythm: yes Oxygen: Mask Given any medications: yes Need for pain medications: no Blood pressure issues: WNL On any drips: yes Is patient diabetic: yes Any labs to draw: no Any other procedures today: no Any concerns about this patient: no Any medications to be given with dialysis: no Due date of next Central Line Dressing change:na Primary RN educated on Incapacitated Nurse: yes * Radha Anguiano RN - 08/24/2022 2:20 PM CDT Problem: Hemodynamic Status/Cardiac Output Goal: Patient has stable vital signs and fluid balance Outcome: Not Progressing Patient's sBP labile. Patient has been on/off the cardene drip to maintain sBP < 160 mmHg. New enteral medications added throughout the shift. Problem: Oxygenation/Respiratory Function Goal: Respiratory rate/effort will be within specified limits Outcome: Not Progressing Wheezing has improved, but patient still has increased work of breathing and tachypnea. Patient wason BiPap overnight and then placed on a Venti mask 50% 15 L/min and given duo-nebulizer breathing treatments per eMAR. Problem: Swallowing Goal: LTG - Patient will demonstrate safe swallowing Intervention/techniques Outcome: Not Progressing Patient has a weak cough and unable to hand liquids/medications orally. NG tube in place with Neproat goal (40 mL/hr). Problem: Fall Risk Goal: Fall risk and fall related injury risk are minimized (interventions related to the fall risk can be found in the flowsheet documentation) Outcome: Progressing Patient has 5 out of 5 strengths in lower extremities, but is fatigued and ambulates with a walker at home. Patient would benefit from PT/OT as she was independent prior to her stroke and hospitalization. Problem: Neurological Deficit Goal: Neurological status is stable or improving Outcome: Progressing Patient remains drowsy to lethargic throughout the shift, but sustains wakefulness to answer orientation questions. Patient is oriented x 4, but appears confused as evidenced by her repeating questions and conversations. Problem: Communication Impairment/Dysarthria Goal: Ability to express needs and understand communication Outcome: Progressing Patient is more dyspneic when speaking so she tries to mimic words. She was attempting to use written communication and will use one word answers. Problem: Nutrition Goal: Nutritional status is improving Outcome: Progressing TF at goal 40 mL/hr of Nepro. Problem: Aspiration Precautions Goal: Patient's risk of aspiration is minimized Outcome: Progressing Pt is able to manage secretions. Problem: Glycemic Control Goal: Clinical indication of glycemia balance is achieved Outcome: Progressing BG stable. No insulin required. BG < 150 mg/dL during the shift. Problem: Pain/Discomfort Goal: Patient exhibits reduced pain/discomfort as evidenced by pain scores Outcome: Progressing Patient denies pain throughout the shift. * Nick Rogel, DO - 08/24/2022 1:37 PM CDT MICU Progress Note 08/24/2022 1:37 PM Patient: Kirsty Rea (:1940) Room: [facility]/ Admit Date: 08/15/2022. Hospital Day: 9 CC: Weakness Hospital Course: Mrs Rea??81 year old??female??w/ hx of HTN,??CKD stage IV-V,??morphea, who presented to [facility] on??08/15/22??as OSH transferred for management of pontine intraparenchimal bleed. Patient presented to OSH??for nausea, vomiting and weakness. CTH??at OSH showed??pontine IPH measuring 9*8*10 mmwithout mass effect.??Patient BP has been elevated during hospitalization and required IV anti- HTN. Also patient developed worsening dysphagia and she was choking on her PO medications and she was not able to tolerate PO intake so she missed PO anti-HTN meds. ?? Patient transferred to the ICU for better control of her BP with drips, worsening mental status, and worsening hypoxia. On physical exam patient was AOx3 awake, alert and resonds to quesitons coherently. Patient received temporary dialysis catheter and emergent dialysis. Pt continues on Nicardipine drip for BP management. Interval History: Patient continues on Venti mask with CPAP as needed. Pt recieving dialysis today again. Pt continues to require Nicardipine drip for BP control, will continue to optimize BP meds as able. Plan for NPO @ midnight for IR placed permacath tomorrow @ 1300. Objective: Vitals: 08/24/22 1200 08/24/22 1230 08/24/22 1300 08/24/22 1313 BP: 154/65 157/67 175/71 175/71 Pulse: 79 81 85 84 Resp: 20 22 30 Temp: 98.2 ??F (36.8 ??C) SpO2: 93% 93% 92% Weight: Height: Date 08/23/22 0700 - 08/24/22 0659 08/24/22 0700 - 08/25/22 0659 Shift 5667-2123 5360-4272 2680-2991 24 Hour Total 5595-1425 1970-5355 2092-9387 24 Hour Total INTAKE I.V.(mL/kg/hr) 100.7(0.2) 340.4(0.5) 441.1(0.2) 346.1 346.1 Tube 100 0 200 300 150 150 Enteral 1 196 197 103 103 Shift Total(mL/kg) 200.7(2.5) 341.4(4.3) 396(4.9) 938.1(11.5) 599.1(7.4) 599.1(7.4) OUTPUT Urine(mL/kg/hr) 150(0.2) 50(0.1) 75(0.1) 275(0.1) 175 175 Ultrafiltration 500 500 Shift Total(mL/kg) 150(1.9) 550(6.9) 75(0.9) 775(9.5) 175(2.1) 175(2.1) NET 50.7 -208.6 321 163.1 424.1 424.1 Weight (kg) 80 80 81.5 81.5 81.5 81.5 81.5 81.5 PEEP/CPAP: 8 cm H20 O2 %: 40 % Physical Exam General - NAD, afebrile, non cachectic HEENT??- NC/AT, EOMI, clear conjunctivae, throat without erythema or exudate, moist mucous membranes Neck??- Supple, no LAD, no JVD Chest??- Diffuse wheezes, no crackles.?? CV - RRR no murmurs, radial and DP pulses 2/4, good capillary refill Abdomen - Soft, NT/ND, +BS, no organomegaly Musculoskeletal - Moves all four extremities Extremities??- No c/c/e Skin??- No rashes, lesions or jaundice Neurologic??- A&O x 3, no focal neurological deficits Psych??- Appropriate mood and affect Labs: CBC: Recent Labs Component Name 08/24/22 0231 08/23/22 0422 08/22/22 0747 WBC 9.1 8.6 5.4 HGB 7.2* 7.5* 8.2* HCT 21.5* 22.3* 24.3* BMP: Recent Labs Component Name 08/24/2223008/23/22162808/23/22421 NA 135* 132* 132* CL 97* 102 99 CO2 21* 15* 15* BUN 41* 69* 64* CREATININE 2.72* 4.06* 3.99* CALCIUM 8.6 8.8 9.1 PHOS 4.7 8.0* 7.8* Hepatic: Recent Labs Component Name 08/24/2223008/23/22162808/23/222 08/22/22 0747 08/17/22 0405 03/09/22 1312 ALT - - - - - 12 AST - - - - - 14 PROT - - - - 5.1* - ALB 2.8* 2.8* 2.9* - 2.8* - ALKPHOS - - - - - 72 - = values in this interval not displayed. Coagulation: Recent Labs Component Name 08/24/2223008/23/2242108/22/22 0747 PT 12.3 13.0 12.2 INR 0.9 1.0 0.9 Cardiac Markers: Recent Labs Component Name 08/22/22 0747 08/21/22 2340 08/21/22 1655 TROPONINI 0.037* 0.058* 0.054* ABGs: No results for input(s): PHART, PO2ART, ZSP0GMS, BEART in the last 16509 hours. Micro: Reviewed Imaging: Imaging reviewed. Assessment: Acute renal failure (ARF) (CMS/HCC) POA: Yes Intracranial hemorrhage, nontraumatic (CMS/HCC) POA: Yes Pleural effusion POA: Yes Aspiration pneumonia (CMS/HCC) POA: Yes Dysphagia POA: Yes Hyponatremia POA: Yes Elevated troponin POA: Yes Hypoalbuminemia POA: Yes High anion gap metabolic acidosis POA: Yes Normocytic anemia POA: Yes Acute decompensated heart failure (CMS/HCC) POA: No Respiratory failure with hypoxia (CMS/HCC) POA: Yes Hypertensive emergency POA: Yes PLAN: Neurological: RASS goal -1 to 0 ?? #Intraparenchymal pontine bleed. #Altered mental status. -At OSH??CTH??showed pontine intraparenchimal bleed. -On repeat CTH??here, same -Neurosurgery no intervention -Neurology BP goal <160, control hypoglycemia, hyponatremia, and hyperthermia. ?? -frequent re-orientation ?? Cardiovascular: MAP goal -??>65??mmHg ?? #HTN emergency Patient BP uncontrolled in the setting of missing PO meds. -On nicardipine drip since 08/22 BP goal <160 Plan: Continue Clonidine 0.2 mg TID, amlodipine 10 mg QD, Hydralazine 100 mg TID, Started Losartan 50 mg QD Continue Nicardipine drip TTE shows EF 60% and Mild pulmonary hypertension, estimated pulmonary arterial systolic pressure is36 mmHg. Consider Renal artery doppler for renal artery stenosis.?? Pulmonary: SpO2 goal -??>90% ?? #AHRF??2/2 COPD exacerbation, Pulmonary Edema On Venti??mask and CPAP as needed ?? #Aspiration pneumonia -CT scan showed??.Indeterminate masslike para-bronchovascular consolidation along with segmental right lower lobe bronchus with interval development of right lower lobe atelectatic collapse. -Started on Unasyn ?? #Pulmonary edema - CT scan showed??1.Bilateral, moderate right and small left, pleural effusions. 2.Suggestion of pulmonary congestion in the setting of mild cardiomegaly - pending dialysis today with new line. ?? #COPD exacerbation -45 years Hx of smoking -Wheezing on PE -Duonebs??Q4??PRN - Unasyn started ?? GI:?? Tube feeds Nepro 40 ml/hr, water flush 100 mg q6 Gluco check Q6? Renal:?? #TOÑA on CKD -Baseline Cr 3.3 -Pre-renal in the setting of volume loss. -Neophrology consulted and will get gialysis today ?? Plan: -??sodium bicarb 1300 tid - f/u SPEP/UPEP and immunofixation??from 08/19 -??EPO 7000 units/week, Iron IV 200 mg again today - Avoid nephrotoxic medications and renally dose??medications ?? #hyponatremia -ddx: pre renal etiology c/f??SIADH,??hypovolemia, contrast induced, hx of nephrotic range proteinuria, CKD stage 5.?? - improvement of hyponatremia 127 > 129? - TSH 4.65, Triglycerides 64 - urine labs, showed Na>75, FeNa 39.4%, suggesting intra-renal.?? - consider SIADH in the setting of increased urine osmolality with an increase in urine sodium Plan: -Continue fluid??restriction to 1L/24 hrs?? -??CTM ?? #urinary retention - patient with new onset urinary retention on admission - likely 2/2 clonidine use and inpatient hospitilization - would not change clonidine dose as patient is stable on hypertensive regimen and risks outweigh benefit for repeat intracranial bleed. PLAN: - bladder scans??PRN, straight cath if >??350cc Endocrine: BGM goal 140-180 mg/dL ?? ID:?? See Pulm??for aspiriation??pneumonia ?? Heme/Onc:?? #Normocytic??anemia??2/2 CKD -??Hgb at presentation initially 8.4 (baseline) but dropped to 7.0 following IVF - Iron studies ordered while inpatient ??w/normal iron, although no ferritin -??Type and cross and 1unit pRBCs 08/18/22 for Hb of 6.2 PLAN: -??EPO 7000 units/week (declined dose this week) - Iron 200 mg, Today. May do 3 more days as needed - CTM Hgb, Transfuse for Hgb < 7.0 ?? FEN: -Monitor electrolytes QD, Replace K<4, Mg<2, Phos<3 ? Lines: Type:??NG tube (08/22) Prophylaxis: Aspiration precautions w/ HOB elevation by 30 degrees GI prophyalxis w/ famotidine DVT prophyalxis w/ SCDs, Heparin Diet: ??TF, Nepro Activity: ??Bedrest Disposition: ICU Monitoring?? Code Status: Full Code Nick Rogel DO Associated attestation - Ashvin Barber MD - 08/24/2022 6:35 PM CDT I have seen and examined the patient with the resident and I agree with the findings and plan of care as documented by the resident. Date of Service: 08/24/22 Ashvin Barber MD * Estrella Payan - 08/24/2022 12:31 PM CDT introduced myself and my role to Kirsty, who was on venti-mask at the time of our encounter. CHINIK per RN. offered to bring a different book than the one she was reading to Kirsty. provided prayer that Kirsty's breathing will improve and she can get off the venti mask. chaplain Roasles Ascom [phone] banquet server on call [phone] * María Isaac MD - 08/24/2022 11:18 AM CDT Nephrology Progress Note 08/24/2022 11:19 AM Patient Name: Kirsty Rea (81 year old) Room Number: 303/01 Attending: Ashvin Barber MD Hospital Day: 9 Subjective: Interval history: - Had R IJ line placed yesterday by MICU team for HD; underwent HD without issue thereafter, 500mL of fluid removed in addition to 275 UOP - Respiratory status essentially unchanged this AM; intermittently on CPAP overnight, back on venti-mask this AM, and she herself does not note any significant changes either - Somewhat more awake this AM compared to prior Objective: Patient Vitals for the past 6 hrs: Temp Pulse Resp BP BP Method 08/24/22 1005 -- -- -- 147/62 -- 08/24/22 1004 -- -- -- 147/62 -- 08/24/22 1003 -- -- -- 147/62 -- 08/24/22 1000 -- 74 20 147/62 -- 08/24/22 0930 -- 88 24 148/59 -- 08/24/22 0904 -- -- -- 159/64 -- 08/24/22 0903 -- 90 -- 159/64 -- 08/24/22 0900 -- 90 24 159/64 -- 08/24/22 0830 -- 85 17 147/59 -- 08/24/22 0800 98.1 ??F (36.7 ??C) 87 18 155/63 -- 08/24/22 0738 -- 86 -- -- -- 08/24/22 0730 -- 82 16 -- -- 08/24/22 0700 -- 86 18 156/60 Automatic 08/24/22 0600 -- 85 16 155/60 Automatic 08/24/22 0551 -- -- -- 154/59 -- Intake/Output Summary (Last 24 hours) at 08/24/2022 1119 Last data filed at 08/24/2022 1006 Gross per 24 hour Intake 1281.43 ml Output 850 ml Net 431.43 ml Physical Exam General: NAD. Sitting up in bed with HOB elevated panfilo to a chair. HENT: NC/AT Neck: R IJ CVC in place Eyes: Anicteric. Non-injected. Chest: Breath sounds decreased (R>L). No increased work of breathing on ventimask. Cardiovascular: RRR. No murmurs, rubs, or gallops Abdomen: Soft. NT/ND. Normal BS+. : Quijano catheter in place Extremities: No signs of clubbing, cyanosis, or edema. Skin: Warm. Dry. Neurological: AOx2-3, drifts in and out of conversation less so than prior; conversational and follows commands. Moves all extremities spontaneously without issue. No focal deficits. Psych: Appropriate mood and affect Medications SCHEDULED MEDICATIONS: 0.9% NaCl injection 3 mL, Intracatheter, q8h albuterol-ipratropium (Duo-Neb) nebulizer solution 3 mL, Inhalation, q4h amLODIPine (Norvasc) tablet 10 mg, Enteral Tube, QDAY ampicillin-sulbactam (Unasyn) 3 g in 0.9% NaCl IV 100 mL IVPB, Intravenous, q24h cloNIDine (Catapres) tablet 0.2 mg, Enteral Tube, TID epoetin deyanira-EPBX (Retacrit) injection 7,000 Units, Subcutaneous, q7 days heparin injection 5,000 Units, Subcutaneous, TID hydrALAZINE (Apresoline) tablet 100 mg, Enteral Tube, TID labetalol (Normodyne; Trandate) tablet 200 mg, Enteral Tube, q12h polyethylene glycol 3350 (Miralax) packet 17 g, Enteral Tube, QDAY senna (Senokot) tablet 17.2 mg, Enteral Tube, QDAY sodium bicarbonate tablet 1,300 mg, Enteral Tube, TID [COMPLETED] furosemide (Lasix) injection 80 mg, Intravenous, Once ?? [COMPLETED] iron sucrose (Venofer) injection 200 mg, Intravenous, Once CONTINUOUS MEDICATIONS: ?? niCARdipine (Cardene) 20 mg in 0.9% NaCl 200 mL infusion, Intravenous, Continuous PRN MEDICATIONS: 0.9% NaCl injection 1-10 mL, Intracatheter, PRN acetaminophen (Tylenol) tablet 500 mg, Enteral Tube, q4h PRN albuterol HFA (Proventil; Ventolin; Proair) 108 (90 Base) MCG/ACT inhaler 2 puff, Inhalation, q6h PRN hydrALAZINE (Apresoline) injection 15 mg, Intravenous, q4h PRN ?? labetalol (Normodyne; Trandate) injection 20 mg, Intravenous, q2h PRN Data Review Recent Labs Component Name 08/24/2223008/23/2242108/22/22 0747 WBC 9.1 8.6 5.4 HGB 7.2* 7.5* 8.2* HCT 21.5* 22.3* 24.3* PLTCOUNT 192 184 206 Recent Labs Component Name 08/24/2223008/15/22 0339 03/09/22 1312 SODIUM - - 140 POTASSIUM 3.4* - 3.9 CHLORIDE - - 109 CO2 21* - 21 BUN 41* - 65* CREATININE 2.72* - 2.74* CALCIUM 8.6 - 8.7 ALBUMIN - - 3.6 ALT - - 12 AST - - 14 GLUCOSE 119* - 99 - = values in this interval not displayed. Recent Labs Component Name 08/24/2223008/23/2242108/22/22 0747 INR 0.9 1.0 0.9 Microbiology: [facility] Imaging: [facility] Assessment and Plan: #TOÑA on CKD5 #Non-Anion Gap Metabolic Acidosis - Most likely prerenal in setting of vomiting, blood loss, diuretic use prior to presentation; other less likely etiologies include obstruction (does have some retention but urinary habits unchanged from home), infection (trace bacteria but no other signs to suggest) - Baseline Cr around 3.3 since 04/2022; CKD 2/2 HTN - Sees nephrology (Dr. Reyes) as outpatient; recent biopsy due to nephrotic range proteinuria that noted hypertensive nephrosclerosis, no acute findings - R IJ CVC placed 08/23 to initiate HD PLAN: - Will plan for additional HD today; 2L off - Continue Quijano and monitor UOP - Tentative plan for permanent HD line this Tuesday with anesthesia assistance - Continue sodium bicarb 1300mg TID - Avoid nephrotoxic medications and renally dose all medications that are given ?? #Hyponatremia - Sodium gradually down-trending while hospitalized; additional urine studies sent on 08/19 - Urine Osm: 288 - Urine Sodium: < 20 - Urine Protein/Creatinine: 1.70 - c/f SIADH as etiology; sodium has improved with free water restriction, lasix - TSH and triglycerides both normal PLAN: - f/u SPEP/UPEP and immunofixation from 08/19 - sodium bicarb as above - HD as above ?? #Hypertension - Home Medications: HCTZ 12.5mg daily, Nifedipine ER 90mg, Labetalol 200mg BID - SBPs have been 130s-150s while here at [facility] - Has had clonidine and hydralazine added while hospitalized; medications further adjusted given issues with swallowing, was on nicardipine gtt for short period as well PLAN: - Continue home labetalol - Continue clonidine 0.2mg TID, hydralazine 100mg TID, amlodipine 10mg - Home nifedipine held as cannot be given via NG ? #Normocytic Anemia - Hgb at presentation initially 8.4 (baseline) but dropped to 7.0 following IVF - Likely has component of anemia of chronic disease 2/2 renal dysfunction - Iron studies ordered this hospitalization: - Iron 77 - TSat 31% - TIBC 248 - Ferritin 180 - Iron studies suggesting mixed picture of iron deficiency and anemia of chronic disease PLAN: - Refused Retacrit 7000U; can consider giving if amenable while inpatient - Consider IV Iron 200mg (can give up to 5 doses over 14 day period; recommend up to 5 days worth or throughout remainder of inpatient stay if shorter than 5 days) - Transfuse for Hgb < 7.0 ? Patient will be seen and discussed with attending physician, Dr. Cintron. María Isaac MD Internal Medicine, PGY-3 08/24/2022 11:19 AM Associated attestation - Peggy Cintron MD - 08/24/2022 5:47 PM CDT Attending Addendum I have seen and examined the patient with the renal team today. I agree with the findings and plan of care as documented by the resident. In addition I note: 81 yo female with advanced chronic kidney disease due to hypertensive nephrosclerosis per kidney biopsy (based on Dr. Reyes's note) and other medical problems as per consult note,was transferred from OSH for further management of ICH. The patient is currently in ICU. She received a short hemodialysis treatment yesterday with 500mL UF. She continues to use venti mask and pulse ox 93%. BP 154/65 and she appears somnolent. To attempt another hemodialysis treatment today. Please see resident's note for further details. * Pillo Barr RN - 08/23/2022 10:09 PM CDT Duration of Tx : 2hrs Net Uf 0.5L Pt tolerated Tx without any distress. HD mohegan packed with normal saline. * Kinsey Ya RN - 08/23/2022 9:56 PM CDT Problem: Fall Risk Goal: Fall risk and fall related injury risk are minimized (interventions related to the fall risk can be found in the flowsheet documentation) Outcome: Progressing Problem: Neurological Deficit Goal: Neurological status is stable or improving Outcome: Progressing Problem: Hemodynamic Status/Cardiac Output Goal: Patient has stable vital signs and fluid balance Outcome: Progressing Problem: Oxygenation/Respiratory Function Goal: Respiratory rate/effort will be within specified limits Outcome: Progressing Problem: Mobility Goal: Patient's mobility/activity will be maintained as optimum level for age, diagnosis and physical limitations Outcome: Progressing Goal: Continuum of care needs are further met through referral to outpatient services when appropriate. Outcome: Progressing Goal: Patient reports the ability to perform Activities of Daily Living. Outcome: Progressing Problem: Communication Impairment/Dysarthria Goal: Ability to express needs and understand communication Outcome: Progressing Problem: Nutrition Goal: Nutritional status is improving Outcome: Progressing Problem: Aspiration Precautions Goal: Patient's risk of aspiration is minimized Outcome: Progressing Problem: Glycemic Control Goal: Clinical indication of glycemia balance is achieved Outcome: Progressing Problem: Knowledge Deficit,Education,Discharge Plan Goal: The patient/family will understand cerebrovascular disease and its symptoms, treatment and management Outcome: Progressing * Massiel Rain RN - 08/23/2022 8:41 PM CDT Problem: Neurological Deficit Goal: Neurological status is stable or improving Outcome: Progressing Problem: Hemodynamic Status/Cardiac Output Goal: Patient has stable vital signs and fluid balance Outcome: Progressing * Pillo Barr RN - 08/23/2022 8:27 PM CDT Educated pt on HD. Explained the procedure and the complications and importance of BP management. Asked pt to report any dizziness, cramping or any uneasiness during dialysis. Pt verbalized understanding. * Nick Rogel DO - 08/23/2022 3:32 PM CDT MICU Progress Note 08/23/2022 3:32 PM Patient: Kirsty Rea (:1940) Room: [facility] Admit Date: 08/15/2022. Hospital Day: 8 CC: Weakness Hospital Course: Mrs Rea??81 year old??female??w/ hx of HTN,??CKD stage IV-V,??morphea, who presented to [facility] on??08/15/22 as OSH transferred for management of pontine intraparenchimal bleed. Patient presented to OSH for nausea, vomiting and weakness. CTH at OSH showed pontine IPH measuring 9*8*10 mm without mass effect.??Patient BP has been elevated during hospitalization and required IV anti- HTN. Also patient developed worsening dysphagia and she was choking on her PO medications and she was not able to tolerate PO intake so she missed PO anti-HTN meds. Patient transferred to the ICU for better control of her BP with drips, worsening mental status, and worsening hypoxia. On physical exam patient was AOx3 awake, alert and resonds to quesitons coherently. Her SpO2 was 92% on the non-rebreazer and other vitals were normal. Her labs today were significant for improving hyponatremia (130), High anion gap metabolic acidosis bicarb 16, A 2/2 to uremia with Cr 3.92, elevated hosphorus 7.2. Interval History: Patient continues on Venti mask. Pt unable to lie flat for IR dialysis catheter, temporary dialysiscatheter placed for dialysis. Pt continues to require Nicardipine drip for BP control. Objective: Vitals: 08/23/22 1305 08/23/22 1415 08/23/22 1444 08/23/22 1501 BP: 172/72 144/53 141/58 Pulse: 86 Resp: Temp: SpO2: 99% Weight: Height: Date 08/22/22 1500 - 08/23/22 0659 08/23/22 0700 - 08/24/22 0659 Shift 6931-4987 2046-4596 24 Hour Total 1849-4546 4646-2923 0171-0460 24 Hour Total INTAKE P.O. 0 I.V.(mL/kg/hr) 192(0.3) 377.3(0.6) 569.3(0.3) 100.7(0.2) 100.7 Tube 50 50 50 50 Shift Total(mL/kg) 242(3.2) 377.3(4.7) 619.3(7.7) 150.7(1.9) 150.7(1.9) OUTPUT Urine(mL/kg/hr) 1500(2.5) 450(0.7) 1950(1) 25(0) 25 Shift Total(mL/kg) 1500(19.9) 450(5.6) 1950(24.4) 25(0.3) 25(0.3) NET -1258 -72.7 -1330.7 125.7 125.7 Weight (kg) 75.5 80 80 80 80 80 80 PEEP/CPAP: 8 cm H20 O2 %: 50 % Physical Exam General - NAD, afebrile, non cachectic HEENT - NC/AT, EOMI, clear conjunctivae, throat without erythema or exudate, moist mucous membranes Neck - Supple, no LAD, no JVD Chest - Diffuse wheezes, no crackles. CV - RRR no murmurs, radial and DP pulses 2/4, good capillary refill Abdomen - Soft, NT/ND, +BS, no organomegaly Musculoskeletal - Moves all four extremities Extremities - No c/c/e Skin - No rashes, lesions or jaundice Neurologic - A&O x 3, no focal neurological deficits Psych - Appropriate mood and affect Labs: CBC: Recent Labs Component Name 08/23/2242108/22/2274608/21/22212 WBC 8.6 5.4 3.7 HGB 7.5* 8.2* 7.5* HCT 22.3* 24.3* 22.3* BMP: Recent Labs Component Name 08/23/2242108/22/228 08/22/22746 NA 132* 130* 129* CL 99 98 99 CO2 15* 16* 17* BUN 64* 64* 63* CREATININE 3.99* 3.92* 4.00* CALCIUM 9.1 9.3 9.1 PHOS 7.8* 7.2* 6.6* Hepatic: Recent Labs Component Name 08/23/2242108/22/22 1528 08/22/22 0747 08/17/22 0405 08/17/22 0405 03/09/22 1312 ALT - - - - - 12 AST - - - - - 14 PROT - - - - 5.1* - ALB 2.9* 3.1* 3.0* - 2.8* - ALKPHOS - - - - - 72 - = values in this interval not displayed. Coagulation: Recent Labs Component Name 08/23/2242108/22/2247 08/21/22212 PT 13.0 12.2 11.9* INR 1.0 0.9 0.9 Cardiac Markers: Recent Labs Component Name 08/22/22 0747 08/21/22 2340 08/21/22 1655 TROPONINI 0.037* 0.058* 0.054* ABGs: No results for input(s): PHART, PO2ART, VDG0KGG, BEART in the last 38066 hours. Micro: reviewed Imaging: Imaging reviewed. Assessment: Acute renal failure (ARF) (CMS/HCC) POA: Yes Intracranial hemorrhage, nontraumatic (CMS/HCC) POA: Yes Pleural effusion POA: Yes Aspiration pneumonia (CMS/HCC) POA: Yes Dysphagia POA: Yes Hyponatremia POA: Yes Elevated troponin POA: Yes Hypoalbuminemia POA: Yes High anion gap metabolic acidosis POA: Yes Normocytic anemia POA: Yes Acute decompensated heart failure (CMS/HCC) POA: No Respiratory failure with hypoxia (CMS/HCC) POA: Yes Hypertensive emergency POA: Yes PLAN: Neurological: RASS goal -1 to 0 ?? #Intraparenchymal pontine bleed. #Altered mental status. -At OSH CTH showed pontine intraparenchimal bleed. -On repeat CTH here, same -Neurosurgery no intervention -Neurology BP goal <160, control hypoglycemia, hyponatremia, and hyperthermia. -frequent re-orientation ?? Cardiovascular: MAP goal - >65 mmHg ?? #HTN emergency Patient BP uncontrolled in the setting of missing PO meds. -On nicardipine drip 08/22 BP goal <160 Plan: Continue PO Clonidine, transitioned nifedipine to amlodipine for NGT, increased Hydralazine to 100 mg TID Continue Nicardipine drip F/U TTE results. Consider Renal artery doppler for renal artery stenosis. Pulmonary: SpO2 goal - >90% ?? #AHRF 2/2 COPD exacerbation, Pulmonary Edema On Venti mask ?? #Aspiration pneumonia -CT scan showed .Indeterminate masslike para-bronchovascular consolidation along with segmental right lower lobe bronchus with interval development of right lower lobe atelectatic collapse. -Started on Unasyn -F/U Sputum Cx. ?? #Pulmonary edema - CT scan showed 1.Bilateral, moderate right and small left, pleural effusions. 2.Suggestion of pulmonary congestion in the setting of mild cardiomegaly - pending dialysis today with new line. ?? #COPD exacerbation -45 years Hx of smoking -Wheezing on PE -Duonebs Q4 PRN - Unasyn started ?? GI: Tube feeds Nepro 20 ml/hr, water flush 100 mg q4 Gluco check Q6 ?? Renal: #TOÑA on CKD -Baseline Cr 3.3 -Pre-renal in the setting of volume loss. -Neophrology consulted and will get gialysis today Plan: - sodium bicarb 1300 tid - f/u SPEP/UPEP and immunofixation - EPO 7000 units/week, Iron IV 200 mg today - Avoid nephrotoxic medications and renally dose??medications ?? #hyponatremia -ddx: pre renal etiology c/f??SIADH,??hypovolemia, contrast induced, hx of nephrotic range proteinuria, CKD stage 5.?? - improvement of hyponatremia 127 > 129? - TSH 4.65, Triglycerides 64 - urine labs, showed Na>75, FeNa 39.4%, suggesting intra-renal. - consider SIADH in the setting of increased urine osmolality with an increase in urine sodium Plan: -Continue fluid??restriction to 1L/24 hrs?? - CTM ?? #urinary retention - patient with new onset urinary retention on admission - likely 2/2 clonidine use and inpatient hospitilization - would not change clonidine dose as patient is stable on hypertensive regimen and risks outweigh benefit for repeat intracranial bleed. PLAN: - bladder scans PRN, straight cath if >??350cc - flomax??no able to be done while NPO Endocrine: BGM goal 140-180 mg/dL ?? ID: See Pulm for aspiriation pneumonia ?? Heme/Onc: #Normocytic??anemia 2/2 CKD -??Hgb at presentation initially 8.4 (baseline) but dropped to 7.0 following IVF - Iron studies ordered while inpatient ??w/normal iron, although no ferritin -??Type and cross and 1unit pRBCs 08/18/22 for Hb of 6.2 PLAN: -??EPO 7000 units/week (declined dose this week) - Iron 200 mg, Today. May do 4 more days as needed - CTM Hgb, Transfuse for Hgb < 7.0 ?? FEN: -Monitor electrolytes QD, Replace K<4, Mg<2, Phos<3 ? Lines: Type: NG tube (08/22) Prophylaxis: Aspiration precautions w/ HOB elevation by 30 degrees GI prophyalxis w/ famotidine DVT prophyalxis w/ SCDs, Heparin Diet: ??TF, Nepro Activity: ??Bedrest Disposition: ICU Monitoring Code Status: Full Code Nick RogelDO Associated attestation - Ashvin Barber MD - 08/23/2022 9:00 PM CDT I have seen and examined the patient with the resident and I agree with the findings and plan of care as documented by the resident. Date of Service: 08/23/22 Ashvin Barber MD * Albina Thakkar, ERYN/LD - 08/23/2022 12:08 PM CDT Nutrition Re-Assessment Brief Synopsis: Patient is at Nutrition Risk; Specific criteria can be found in assessment below Nutrition Plan: Diet per [facility] eval- dysphagia 2 with nectar thick liquids Consult for TF recs if warranted. Ensure Plus High Protein (1.5 kcal) (350 kcal, 20 grams pro, 40 grams CHO) TID Recommendations to Physician: none Comments: Pt scheduled for reassessment. Pt NPO. [facility] rec dysphagia 2 nectar thick liquids from MBS yesterday. tx to ICU since then. Was NPO for procedure with nephrology but canceled. 4 BM x24 hrs. On venti-mask. Eating 0-25% of meals. Assessment: Med/Surg History and Clinical Diagnoses: past medical history of HTN, CKD3, Morphea and osteopenia transferred from [facility] to [facility] Neuro ICU for pontine intraparenchymal hemorrhage. Diet order accuracy Current diet order: NPO Nutrition recommendation: alter/change nutrition order P.O.Intake for the past 48 hrs:% Meal Taken Av % Min: 0 % Max: 50 % Supplement(s) Consumed- Last 48 hours None Food Allergies: No known food allergies GI Concerns: None Chewing/Swallowing: None Pain affecting intake: No Admission weight: Weight: 167 lb 8.8 oz (76 kg) (08/15/22 0315) Recent Weights/Methods 07/30/2020 1059 02/02/2021 1413 08/10/2021 1329 12/28/2021 1330 03/08/2022 1715 08/15/2022 0315 08/18/2022 0501 08/23/2022 0400 Weight: 181 lb 6.4 oz (82.3 kg) 177 lb 9.6 oz (80.6 kg) 175 lb 6.4 oz (79.6 kg) 172 lb 6.4 oz (78.2kg) 163 lb 12.8 oz (74.3 kg) 167 lb 8.8 oz (76 kg) 166 lb 6.4 oz (75.5 kg) 176 lb 5.9 oz (80 kg) Weight Method (Utilize Scales): -- -- -- -- -- -- Standing Bedscale BMI: Body mass index is 26.82 kg/m??. BMI Range: Overweight Wt Comments: monitoring Height: 5' 8 (172.7 cm) IBW/lb (Calculated) Female: 140, Laboratory values reviewed. Recent Labs Component Name 08/23/22 0422 08/22/22 1528 08/22/22 0747 08/18/22 1011 08/17/22 0405 08/15/22 0339 03/09/22 1312 BUN 64* 64* 63* - 58* - 65* CREATININE 3.99* 3.92* 4.00* - 4.22* - 2.74* NA 132* 130* 129* - 134* - - POTASSIUM 3.9 3.8 3.8 - 3.0* - 3.9 CL 99 98 99 - 105 - - CO2 15* 16* 17* - 16* - 21 GLUCOSE 129* 142* 114 - 105 - 99 CALCIUM 9.1 9.3 9.1 - 8.7 - 8.7 PROT - - - - 5.1* - - ALB 2.9* 3.1* 3.0* - 2.8* - - ALKPHOS - - - - - - 72 ALT - - - - - - 12 AST - - - - - - 14 ANIONGAP 22* 20* 17 - 16 - - BCR 16 16 16 - 14 - - OSMOLALITY 294 291 287 - 295 - - EGFR 11* 11* 11* - 10* - 16* EGFRAFR - - - - - - 18* - = values in this interval not displayed. Medications noted. Current Facility-Administered Medications Medication ??? 0.9% NaCl injection 3 mL And ??? 0.9% NaCl injection 1-10 mL ??? acetaminophen (Tylenol) tablet 500 mg ??? albuterol HFA (Proventil; Ventolin; Proair) 108 (90 Base) MCG/ACT inhaler 2 puff ??? albuterol-ipratropium (Duo-Neb) nebulizer solution 3 mL ??? ampicillin-sulbactam (Unasyn) 3 g in 0.9% NaCl IV 100 mL IVPB ??? cloNIDine (Catapres) tablet 0.2 mg ??? epoetin deyanira-EPBX (Retacrit) injection 7,000 Units ??? heparin injection 5,000 Units ??? hydrALAZINE (Apresoline) injection 15 mg ??? hydrALAZINE (Apresoline) tablet 50 mg ??? labetalol (Normodyne; Trandate) injection 20 mg ??? labetalol (Normodyne; Trandate) tablet 200 mg ??? niCARdipine (Cardene) 20 mg in 0.9% NaCl 200 mL infusion ??? NIFEdipine CR osmotic 24hr (Procardia-XL) tablet 90 mg ??? polyethylene glycol 3350 (Miralax) packet 17 g ??? senna (Senokot) tablet 17.2 mg ??? sodium bicarbonate tablet 1,300 mg ??? sodium chloride tablet 1 g Skin/Wound: WDL Estimated Energy Needs: KCAL: 1900 (25kcal/kg of ABW) Protein (g): 76 (1g/kg of ABW) Fluid (ml): 1 ml/kcal Needs based on: Kcal/kg- (Comment) (ABW = 76kg) Recommended Access Route: PO Education needed: Stroke Nutrition Therapy Education Provided: Yes Expected level of compliance: Good Nutrition Care Process (1) Nutrition Diagnostic Statement: Inadequate oral intake related to:: decreased ability to consume or tolerate food and/or fluids due to illness as evidenced by:: oral intake insufficient to meet estimated requirements Nutrition Diagnostic Statement Progress: New diagnostic statement established Nutrition Intervention: Meals and snacks:;Medical Food Supplements: Monitoring: PO intake, labs, weight, BM Evaluation: Nutrition Goal: Total intake will meet estimated nutrient needs Nutrition Goal Timeframe: Throughout stay Nutrition Goal Progress: New goal established Ascom #: [id number] * Loly Aleman MD - 08/23/2022 11:32 AM CDT Procedure was cancelled due to the patient's breathing difficulty while lying down. will consider the procedure under anesthesia. Loly Aleman MD Nephrology Fellow #[phone] * Chio Moore RN - 08/23/2022 10:30 AM CDT Images from the original note were not included. Nursing consult for sacral skin concerns, pt transferred from floor to unit. Pt assists with turning, she is moving her feet but I see her left foot is pronated. Pt goes by [place]. Sacrum is pink, blanchable and intact at this time. Replaced bunched up sacral mepilex border dressing for prevention. Pt passing gas when turned. Heel offloading boots placed at this time with the wedge to neutralize her foot position. Lateral 5th metatarsal area is blanchable redness. Pt non-rebreather mask in place, she has hearing aids, eyeglasses and the elastic strap all behind her ears. Recommend place mepilex lite over the ears to prevent pressure injury. Eye glasses removedat this time. Recommend continue ICU prevention measures: - [facility] ICU bed with DreamAir mattress with AP pump - Routine turning, patient specific q 2-4 hours - Large sacral Mepilex prevention dressing for patients with contained/managed incontinence, changeq 3 days and prn - Single layer flat sheet for turning/microturns - Wedges/pillows for turning - HOB at 30 degrees or below - Off load heels with heel boots if patient cannot move legs spontaneously - Moisture/incontinence protection - dry skin well, apply touchless zinc spray - All external devices (braces/collars/etc) - follow guidelines for skin assessment and management * María Isaac MD - 08/23/2022 10:27 AM CDT Nephrology Progress Note 08/23/2022 10:27 AM Patient Name: Kirsty Rea (81 year old) Room Number: 303/01 Attending: Ashvin Barber MD Hospital Day: 8 Subjective: Interval history: - Transferred to ICU for need of gtt for better BP control in setting of AMS and not taking PO - Started on abx (Unasyn) for possible aspiration pneumonia; still requiring venti-mask to maintainSpO2 - Remains alert but drowsy and often drifts in/out of conversation Objective: Patient Vitals for the past 6 hrs: Temp Pulse Resp BP BP Method 08/23/22 0930 -- 73 22 138/68 -- 08/23/22 0915 -- 75 19 -- -- 08/23/22 0900 -- 78 25 128/59 -- 08/23/22 0845 -- 73 20 -- -- 08/23/22 0830 -- 76 18 142/79 -- 08/23/22 0815 -- 89 27 -- -- 08/23/22 0802 -- -- -- 156/69 -- 08/23/22 0801 -- 87 -- 156/69 -- 08/23/22 0800 (!) 96 ??F (35.6 ??C) 88 23 156/69 -- 08/23/22 0745 -- 86 9 -- -- 08/23/22 0730 -- 89 16 162/71 -- 08/23/22 0715 -- 87 29 -- -- 08/23/22 0700 -- 86 23 164/76 -- 08/23/22 0600 96.5 ??F (35.8 ??C) 83 23 158/70 Automatic 08/23/22 0509 -- -- -- 146/64 -- 08/23/22 0500 -- 86 28 146/64 Automatic 08/23/22 0437 (!) 95 ??F (35 ??C) 81 (!) 32 -- -- Intake/Output Summary (Last 24 hours) at 08/23/2022 1027 Last data filed at 08/23/2022 0943 Gross per 24 hour Intake 769.93 ml Output 1975 ml Net -1205.07 ml Physical Exam General: NAD. Laying in bed w/HOB elevated; appears mildly uncomfortable HENT: NC/AT Eyes: Anicteric. Non-injected. Chest: Breath sounds decreased (R>L). No increased work of breathing on ventimask. Cardiovascular: RRR. No murmurs, rubs, or gallops Abdomen: Soft. NT/ND. Normal BS+. : Quijano catheter in place Extremities: No signs of clubbing, cyanosis, or edema. Skin: Warm. Dry. Neurological: AOx2-3 although drifts in and out of conversation; conversational and follows commands. Moves all extremities spontaneously without issue. No focal deficits. Psych: Appropriate mood and affect Medications SCHEDULED MEDICATIONS: 0.9% NaCl injection 3 mL, Intracatheter, q8h albuterol-ipratropium (Duo-Neb) nebulizer solution 3 mL, Inhalation, q4h ampicillin-sulbactam (Unasyn) 3 g in 0.9% NaCl IV 100 mL IVPB, Intravenous, q24h cloNIDine (Catapres) tablet 0.2 mg, Enteral Tube, TID epoetin deyanira-EPBX (Retacrit) injection 7,000 Units, Subcutaneous, q7 days heparin injection 5,000 Units, Subcutaneous, TID hydrALAZINE (Apresoline) tablet 50 mg, Enteral Tube, TID labetalol (Normodyne; Trandate) tablet 200 mg, Enteral Tube, q12h NIFEdipine CR osmotic 24hr (Procardia-XL) tablet 90 mg, Oral, QDAY polyethylene glycol 3350 (Miralax) packet 17 g, Enteral Tube, QDAY senna (Senokot) tablet 17.2 mg, Enteral Tube, QDAY sodium bicarbonate tablet 1,300 mg, Enteral Tube, TID sodium chloride tablet 1 g, Enteral Tube, TID WC [COMPLETED] barium (E-Z-Disk) tablet 1 tablet, Oral, Once [COMPLETED] barium (Varibar Thin) 40 % liquid SUSR 60 mL, Oral, Once [COMPLETED] barium (Varibar) 40 % paste PSTE, Oral, Once [COMPLETED] barium (Varibar) 40 % suspension, Oral, Once ?? [COMPLETED] furosemide (Lasix) injection 20 mg, Intravenous, Once CONTINUOUS MEDICATIONS: ?? niCARdipine (Cardene) 20 mg in 0.9% NaCl 200 mL infusion, Intravenous, Continuous PRN MEDICATIONS: 0.9% NaCl injection 1-10 mL, Intracatheter, PRN acetaminophen (Tylenol) tablet 500 mg, Enteral Tube, q4h PRN albuterol HFA (Proventil; Ventolin; Proair) 108 (90 Base) MCG/ACT inhaler 2 puff, Inhalation, q6h PRN hydrALAZINE (Apresoline) injection 15 mg, Intravenous, q4h PRN ?? labetalol (Normodyne; Trandate) injection 20 mg, Intravenous, q2h PRN Data Review Recent Labs Component Name 08/23/2242108/22/2274608/21/22212 WBC 8.6 5.4 3.7 HGB 7.5* 8.2* 7.5* HCT 22.3* 24.3* 22.3* PLTCOUNT 184 206 164 Recent Labs Component Name 08/23/2242108/15/22 0339 03/09/22 1312 SODIUM - - 140 POTASSIUM 3.9 - 3.9 CHLORIDE - - 109 CO2 15* - 21 BUN 64* - 65* CREATININE 3.99* - 2.74* CALCIUM 9.1 - 8.7 ALBUMIN - - 3.6 ALT - - 12 AST - - 14 GLUCOSE 129* - 99 - = values in this interval not displayed. Recent Labs Component Name 08/23/2242108/22/2247 08/21/22212 INR 1.0 0.9 0.9 Microbiology: [facility]ed in [facility] Imaging: Reviewed in [facility] Assessment and Plan: #TOÑA on CKD5 #Non-Anion Gap Metabolic Acidosis - Most likely prerenal in setting of vomiting, blood loss, diuretic use prior to presentation; other less likely etiologies include obstruction (does have some retention but urinary habits unchanged from home), infection (trace bacteria but no other signs to suggest) - Baseline Cr around 3.3 since 04/2022; CKD 2/2 HTN - Sees nephrology (Dr. Reyes) as outpatient; recent biopsy due to nephrotic range proteinuria that noted hypertensive nephrosclerosis, no acute findings - Had planned for TDC with IN earlier but aborted due to concerns for ability to lay flat; will discuss w/primary team placement of temporary line at the bedside PLAN: - Continue tamsulosin 0.4mg for urinary retention; if concern for BP stop clonidine - Continue Quijano - Give IV lasix 80mg once; will monitor for additional doses - Will plan for HD after placement of temporary line by primary team - Tentative plan for permanent HD line this Tuesday with anesthesia assistance - Continue sodium bicarb 1300mg TID - Avoid nephrotoxic medications and renally dose all medications that are given ?? #Hyponatremia - Sodium gradually down-trending while hospitalized; additional urine studies sent on 08/19 - Urine Osm: 288 - Urine Sodium: < 20 - Urine Protein/Creatinine: 1.70 - c/f SIADH as etiology; sodium has improved with free water restriction, lasix - TSH and triglycerides both normal PLAN: - f/u SPEP/UPEP and immunofixation from 08/19 - sodium bicarb as above - will begin HD as above - continue fluid restriction ?? #Hypertension - Home Medications: HCTZ 12.5mg daily, Nifedipine ER 90mg, Labetalol 200mg BID - SBPs have been 130s-150s while here at [facility] - Has had clonidine and hydralazine added while hospitalized; medications further adjusted given issues with swallowing, was on nicardipine gtt for short period as well PLAN: - Continue home labetalol - Continue clonidine 0.2mg TID, hydralazine 100mg TID - Home nifedipine held as cannot be given via NG ? #Normocytic Anemia - Hgb at presentation initially 8.4 (baseline) but dropped to 7.0 following IVF - Likely has component of anemia of chronic disease 2/2 renal dysfunction - Iron studies ordered this hospitalization: - Iron 77 - TSat 31% - TIBC 248 - Ferritin 180 - Iron studies suggesting mixed picture of iron deficiency and anemia of chronic disease PLAN: - Refused Retacrit 7000U; can consider giving if amenable while inpatient - Consider IV Iron 200mg (can give up to 5 doses over 14 day period; recommend up to 5 days worth or throughout remainder of inpatient stay if shorter than 5 days) - Transfuse for Hgb < 7.0 ? Patient will be seen and discussed with attending physician, Dr. Cintron. María Isaac MD Internal Medicine, PGY-3 08/23/2022 10:27 AM Associated attestation - Peggy Cintron MD - 08/23/2022 5:01 PM CDT Attending Addendum I have seen and examined the patient with the fellow today. I agree with the findings and plan of care as documented by the fellow. In addition I note: 81 yo female with advanced chronic kidney disease due to hypertensive nephrosclerosis per kidney biopsy (based on Dr. Reyes's note) and other medical problems as per consult note,was transferred from OSH for further management of ICH. Noted recent events, transfer to ICU, and higher oxygen requirement (suspect aspiration). Higher urine volume though metabolic panel is relatively unchanged. I spoke to Dr. Reyes (primary radiology technologist) and met with daughter again. Discussed with ICU team. If unstable for tunneled catheter, plan temporary dialysis catheter and dialysis initiation. Please see fellow's note for further details. * Chrissie Johns - 08/23/2022 9:11 AM CDT Images from the original note were not included. KIDNEY NAVIGATOR NOTE Dialysis Admissions Note Made aware of pt admission, pt currently in the ICU. Plan for pt to receive tunneled dialysis cath, procedure cancelled due to pt difficult breathing while laying down. SHAWNA was able to speak with pt's daughter Stacy who informed me that pt's other daughter Agnes Monroy ([phone]) would be index editor. Per Stacy and Agnes, father was on HD and familiar with it. Ade Berry ([place]) would be preference. [facility] once d/c from hospital. Will continue to follow pt progress and update. Chrissie Johns Dialysis Navigator [facility] P: [phone] Asom: [phone] 08/23/2022 10:57 AM DOCUMENTED ACKNOWLEDGEMENT OF CHOICE: YES 08/23/2022 10:57 AM * Vanessa Blakely SLP - 08/23/2022 8:22 AM CDT [facility] Department of Physical Medicine & Rehabilitation Progress Note Patient: Kirsty Rea [facility] Record Number: [id number] Date of : 1940 Age: [age] year old 08/23/22 0800 Therapy on Hold Therapy on Hold Floor to ICU;New Order Required for Therapy Vanessa Barr M.S., [facility] Speech Language Pathologist [phone] * Nadya Camara PTA - 08/23/2022 7:33 AM CDT [facility] Department of Physical Medicine & Rehabilitation Progress Note Patient: Kirsty Rea [facility] Record Number: [id number] Date of : 1940 Age: [age] year old 08/23/22 0733 Therapy on Hold Therapy on Hold Floor to ICU;Chart Reviewed;New Order Required for Therapy * Aroldo Gomez OT - 08/23/2022 7:16 AM CDT [facility] Department of Physical Medicine & Rehabilitation Progress Note Patient: Kirsty Rea [facility] Record Number: [id number] Date of : 1940 Age: [age] year old 08/23/22 0700 Therapy on Hold Therapy on Hold Chart Reviewed;Floor to ICU;New Order Required for Therapy * Kinsey Ya RN - 08/23/2022 3:33 AM CDT Problem: Fall Risk Goal: Fall risk and fall related injury risk are minimized (interventions related to the fall risk can be found in the flowsheet documentation) Outcome: Progressing Problem: Neurological Deficit Goal: Neurological status is stable or improving Outcome: Progressing Problem: Hemodynamic Status/Cardiac Output Goal: Patient has stable vital signs and fluid balance Outcome: Progressing Problem: Oxygenation/Respiratory Function Goal: Respiratory rate/effort will be within specified limits Outcome: Not Progressing Problem: Mobility Goal: Patient's mobility/activity will be maintained as optimum level for age, diagnosis and physical limitations Outcome: Progressing Goal: Continuum of care needs are further met through referral to outpatient services when appropriate. Outcome: Progressing Goal: Patient reports the ability to perform Activities of Daily Living. Outcome: Progressing Problem: Communication Impairment/Dysarthria Goal: Ability to express needs and understand communication Outcome: Progressing Problem: Nutrition Goal: Nutritional status is improving Outcome: Not Progressing Problem: Aspiration Precautions Goal: Patient's risk of aspiration is minimized Outcome: Progressing Problem: Knowledge Deficit,Education,Discharge Plan Goal: The patient/family will understand cerebrovascular disease and its symptoms, treatment and management Outcome: Progressing Problem: Pain/Discomfort Goal: Patient exhibits reduced pain/discomfort as evidenced by pain scores Outcome: Progressing Goal: Patient uses pharmacological and non-pharmacological pain management strategies. Outcome: Progressing Goal: Patient verbalizes acceptable level of pain relief and ability to engage in desired activity. Outcome: Progressing Problem: Ineffective Airway Clearance Goal: Patent airway Outcome: Progressing * Yessi Singer RCP - 08/23/2022 12:35 AM CDT Transport Start Time: 34 Transport Assisted by 1 Therapist Transport From: ICU Transport To: CT Total Transport Time: 15 minutes Patient transported with HOB @ 30-45 degrees? Yes Oral care performed & documented within 4 hours of transport on life support? Yes Patient's oral cavity suctioned, including above the airway cuff, prior to transport? Yes * Eulogio Huitron MD - 08/22/2022 5:13 PM CDT Family Notification Documentation Contact made: 08/22/2022 5:13 PM Person(s) contacted: Daughter and Son In Law Method of communication: In-person Summary of discussion Medical updates, including ICU transfer, were relayed to family (son in law in early afternoon -- and daughter in late afternoon). Discussed speech team updates, pulm consult and chest ct updates, head CT and BP titration updates. No further questions, Dr Huitron * Katerina Lao RN - 08/22/2022 5:03 PM CDT Bedside report given to Nurse Shayy in ICU. RM 303. Pt transferred via bed, and non rebreather mask and Rapid Nurse Sarita and Dr Huitron present. All questions answered. Home meds were given to pt daughter. All personal belongings accompanied. Nurse was given IV Labetalol, and ordered ABT. * Katerina Lao RN - 08/22/2022 4:25 PM CDT Attempted to call report to ICU nurse. Unable, nurse is attending to a pt. Awaiting call back. * Katerina Lao RN - 08/22/2022 4:16 PM CDT 1527 NG successfully placed. MD made aware. Awaiting KUB to verify placement. 1557 Modified Barium swallow done. Per Dr Huitron request, attempted to give meds P.O. since pt passed swallow eval. Attempted. Difficulties with swallowing noted, frequent couging. MD made aware. Will maintain NPO status. * Janny Little SLP - 08/22/2022 1:50 PM CDT [facility] Modified Barium Swallow Patient: Kirsty Rea [facility] Record Number [id number] Date of : 1940 Age: [age] year old PPE: gloves, mask Referring Physician: Dr. Héctor Silva Diagnosis: Patient Active Problem List: Localized morphea Osteoporosis Other symptoms and signs involving the musculoskeletal system Hearing loss Hypokalemia Adverse effect of carbonic-anhydrase inhibitors, benzothiadiazides and other diuretics, initial encounter Other specified health status Hypertension Other amnesia Chronic kidney disease, stage 2 (mild) Anemia in stage 2 chronic kidney disease Encounter for routine gynecological examination Neuroma of foot Acute bronchitis Acute kidney failure (CMS/HCC) Allergic urticaria Benign hypertensive heart disease 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 failure Cervicalgia Chronic kidney disease, stage 3 (moderate) Contact dermatitis and other eczema Disturbance of skin sensation Dizziness and giddiness Other malaise and fatigue Hypertensive chronic kidney disease with stage 1 through stage 4 chronic kidney disease, or unspecified chronic kidney disease Hypertonicity of bladder Hypertrophy of breast Need for prophylactic vaccination and inoculation against influenza Localized edema Mixed hyperlipidemia Generalized muscle weakness Neoplasm of uncertain behavior of skin Affections of shoulder region Other proteinuria Other specified diffuse disease of connective tissue (CMS/HCC) Other specified disorder of nervous system Pain in joint, shoulder region Pain in thoracic spine Thoracic or lumbosacral neuritis or radiculitis Senile osteoporosis Congenital anomaly of integument Disorder of skin and subcutaneous tissue Intracranial hemorrhage, nontraumatic (CMS/HCC) Past Medical History: Diagnosis Date ??? CKD (chronic kidney disease) stage 3, GFR 30-59 ml/min ([facility]/HCC) proteinuria ??? HTN (hypertension), benign ??? 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 Morphea ??? Osteopenia Swallow Recommendations: Liquids: [place] thick liquids Diet: Minced & Moist (5)/Mech Altered (DYS2) Swallowing guidelines: Sit at 90 degrees Small, controlled amounts at slow rate Supervision and/or assistance at meals Recommended tests/consults: Other: None at this time Discharge Recommendation: Patient will benefit from intense 3 hour per day multidisciplinary inpatient therapies. Speech therapy is recommended to improve swallow function. Subjective: Pt pleasant and agreeable to examination. Objective: Pt presents with mild oral dysphagia and moderate pharyngeal dysphagia. Deficits result in aspiration of thin liquid residue post-swallow with delayed cough. Cough is ineffective at clearing aspirated material. Residue remains in the trachea post aspiration, impacting visualization of residue clearance for further trials. Suspect aspiration of thin liquids during swallow with initial thin liquid trial, however pt repositioned herself during swallow which limited visualization of airway. Penetration is noted across consistencies which appeared to fully revert from the airway. Prolonged mastication noted with regular texture trial, likely 2/2 poor dentition. No difficulties noted wi th barium pill. Recommend nectar thick liquids with mechanical soft textures. Cognitive/Mental Status: Patient appears alert, oriented with no cognitive impairments that will interfere with therapy intervention. Procedure: This procedure was performed in conjunction with radiology using lateral views. The patient was given thin liquid, nectar thick liquid, honey thick liquid, pudding consistency, cracker dipped in pudding/barium mix, barium pill. Oral Stage: ?? Lip closure: no labial escape ?? Tongue control/bolus hold: posterior escape of less than 1/2 of the bolus ?? Bolus prep/mastication: disorganized chewing/mashing with solid pieces of bolus unchewed ?? Bolus transport/lingual motion: slowed tongue motion ?? Oral residue: residue collection on oral structures; Location: floor of mouth palate tongue ?? Initiation of pharyngeal swallow: bolus head in pyriforms Pharyngeal Stage: ?? Soft palate elevation: no bolus between soft palate/pharygneal wall ?? Laryngeal elevation: partial superior movement of thyroid cartilage/partial approximation of arytenoids to epiglottic petiole ?? Anterior hyoid excursion: partial anterior movement ?? Epiglottic movement: complete inversion ?? Laryngeal vestibule closure: incomplete: narrow column of contract in laryngeal vestibule ?? Pharyngeal stripping wave: present complete ?? Pharyngeal contraction: patient in bed, unable to complete in A-P ?? PE segment opening: complete distension and complete duration with no obstruction of flow ?? Tongue base retraction: narrow column of contrast between TB and PW ?? Pharyngeal residue: collection of residue within or on pharyngeal structures; Location: valleculae pharyngeal wall Esophageal Stage: ?? Esophageal clearance upright position: patient in bed, unable to complete in A-P or able to do esophogeal scan Education: Patient instructed in recommedations and demonstrated questionable understanding. Guidelines were posted (inpatient only): yes Informed Consent to Treatment: Plan of care including recommended therapy, goals and frequency, as well as potential risks and benefits of treatment/assessment explained to the patient who demonstrates questionable understanding. Goals: Short Term Goal(s): Patient to demonstrate gains in swallowing function as demonstrated by the ability to tolerate dietupgrade. and Patient to demonstrate the ability to complete oral motor pharyngeal exercises 3-5x/week to improve swallow function. Non Destructive Testing Scientist Goal(s): Patient to be independent/baseline with functional swallow and be able to safely discharge to priorlevel of care. Janny Wu M.A. [facility] Speech Language Pathologist * Katerina Lao RN - 08/22/2022 12:22 PM CDT Swallow eval done by speech therapist. Frequent coughing noted. Further testing recommended. * Zohra Schmid, PT - 08/22/2022 11:45 AM CDT [facility] Department of Physical Medicine & Rehabilitation Progress Note Patient: Kirsty Rea [facility] Record Number: [id number] Date of : 1940 Age: [age] year old 08/22/22 1100 Missed Visit Missed Visit RN Cancel Patient with decreased medical status this date. Will check on patient on 08/23. * Janny Little SLP - 08/22/2022 11:45 AM CDT [facility] Physical Medicine and Rehabilitation Bedside Swallow Assessment Patient: Kirsty Rea [facility] Record Number: [id number] Date of : 1940 Age: [age] year old Patient Active Problem List: Localized morphea Osteoporosis Other symptoms and signs involving the musculoskeletal system Hearing loss Hypokalemia Adverse effect of carbonic-anhydrase inhibitors, benzothiadiazides and other diuretics, initial encounter Other specified health status Hypertension Other amnesia Chronic kidney disease, stage 2 (mild) Anemia in stage 2 chronic kidney disease Encounter for routine gynecological examination Neuroma of foot Acute bronchitis Acute kidney failure (CMS/HCC) Allergic urticaria Benign hypertensive heart disease 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 failure Cervicalgia Chronic kidney disease, stage 3 (moderate) Contact dermatitis and other eczema Disturbance of skin sensation Dizziness and giddiness Other malaise and fatigue Hypertensive chronic kidney disease with stage 1 through stage 4 chronic kidney disease, or unspecified chronic kidney disease Hypertonicity of bladder Hypertrophy of breast Need for prophylactic vaccination and inoculation against influenza Localized edema Mixed hyperlipidemia Generalized muscle weakness Neoplasm of uncertain behavior of skin Affections of shoulder region Other proteinuria Other specified diffuse disease of connective tissue (CMS/HCC) Other specified disorder of nervous system Pain in joint, shoulder region Pain in thoracic spine Thoracic or lumbosacral neuritis or radiculitis Senile osteoporosis Congenital anomaly of integument Disorder of skin and subcutaneous tissue Intracranial hemorrhage, nontraumatic ([facility]) 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 Morphea Osteopenia In addition to the 1:1 evaluation of the patient, additional eval time was spent completing the chart review prior to the assessment, completing the multidisciplinary plan of care and education plan post evaluation and communicating results of the eval to other treatment team members. PPE: PPE worn by staff: eye protection;gloves;mask - procedural Impressions: Pt presents with suspected pharyngeal dysphagia. Oral mechanism and CN exam revealed decreased lingual coordination and strength, hoarse vocal quality, reduced maximum phonation time. Immediate or delayed cough noted with 100% of thin liquid trials. Consulted with RN who has not noted any coughing this date prior to initiation of PO trials during this evaluation. Recommend MBSS to further evaluate oropharyngeal swallow function and r/o aspiration, NPO pending MBSS. Recommendations: Diet Liquids Recommendation: (P) NPO Diet Solids Recommendation: (P) NPO Recommended Form of Meds: (P) NPO Recommended Tests/Consults: Recommendations: (P) Modified Barium Swallow Study Discharge Recommendations: Speech therapy is recommended to improve swallow function. SUBJECTIVE: Patient Goals:To feel better Pain Assessment: No pain reported Follow-up for pain: No follow-up for pain indicated and patient agreed to proceed with treatment OBJECTIVE: Level of Consciousness: alert Orientation Level: oriented to person, oriented to place, oriented to situation Positioning: Upright in bed Respiratory Status: mask - MD esvin present for entire evaluation and states ok to remove mask for evaluation. Oral/Motor: Dentition: Dentures;Partials (Partials lower) Oral Hygiene : Xerostomic (dry mouth) Labial/Facial: Within Functional Limits Tongue: Within Functional Limits Vocal Quality: Impaired (Hoarse, reduced intensity) Velopharyngeal Status: Comments (ALBERTA) Oral Motor Coordination: Within Functional Limits Controls Secretions: Yes Swallow Trials: Ice chips: Presentation: Spoon-Assisted Oral: Within Functional Limits Pharyngeal: Within Functional LImits Thin Liquid: Presentation: Cup-Self Fed Oral: Within Functional Limits Pharyngeal: Cough - Delayed;Cough - Immediate (100% of trials) Assessment: Risk For Aspiration: (P) Moderate Primary Diagnostic Impression - Oral: (P) No dysphagia Primary Diagnostic Impression - Pharyngeal: (P) No dysphagia suspected Education/Interventions: While performing [facility], Patient was instructed in: results of swallow evaluation, clinical signs of aspiration , and recommendations for NPO status given patient's elevated aspiration risk. Patient demonstrated Questionable understanding of instructions given. Physician and Nurse contacted regarding results of swallow evaluation and recommendations. INFORMED CONSENT TO TREATMENT: Plan of care including recommended therapy, goals and frequency, discussed with patient who demonstrates questionable understanding. Short Term Goals Patient will participate in an instrumental swallow assessment as appropriate., Patient will tolerate recommended food and liquid consistencies without clinical signs of aspiration. Non Destructive Testing Scientist Goal (s): Patient to be independent/baseline with functional mobility and self care and be able to safely discharge to prior level of care. Plan: Modified Barium Swallow Study Janny Wu M.A. [facility] Speech Language Pathologist * Peggy Cintron MD - 08/22/2022 10:18 AM CDT NEPHROLOGY PROGRESS NOTE PT NAME : Kirsty Rea PT Date of admit : 08/15/2022 3:01 AM NOTE: Noted events. I spoke to her daughters, Stacy in the patient's room and Agnes over phone. Theyindicate that her mother had been very independent until recently. Over the past several weeks-months, she has been sleeping a lot (most of the day). They recently learned about their mother's advanced CKD and aware of dialysis options (their father received in-center HD). The patient and daughtersare interested in starting dialysis to see if she will feel better. The patient is resting in bed (somnolent) and receiving oxygen via venti mask, noted prolonged exp[iration and scattered wheeze, decreased breath sounds over lung bases, CV - absent rub, ext - edema present. Recent Labs Component Name 08/22/22 0747 08/21/22 1825 08/21/22 0213 08/20/22 0250 08/19/22 2100 08/19/22 1056 08/18/22 1011 BUN 63* 59* 63* 66* 71* 66* 63* CREATININE 4.00* 4.05* 4.29* 4.57* 4.59* 4.65* 4.42* NA 129* 127* 127* 127* 127* 127* 132* POTASSIUM 3.8 3.9 3.9 4.1 4.1 4.0 3.8 CO2 17* 16* 15* 16* 16* 17* 19* CALCIUM 9.1 8.8 8.6 8.2* 8.4 8.6 8.3* PHOS 6.6* - 5.8* 6.1* - 5.7* 5.3* Advanced chronic kidney disease with recent decline in functional status, report of hypersomnolence, anorexia etc. Doubt kidney dysfunction as the major explanation for her respiratory status Discussed with Dr. Cabrera re: recent events and respiratory status. Downward trend in serum creatinine is encouraging though her recent poor intake might at least partially explain recent decline in creatinine levels and underestimate the degree of renal dysfunction. Overall, her advanced CKD is likely contributing to her functional status, symptoms, and metabolic abnormalities, and initiation of hemodialysis is reasonable. The patient and family have indicated understanding and wish to proceed with di alysis. To discuss with her primary radiology technologist, Dr. Reyes tomorrow. Recommend NPO after MN in anticipation of tunneled hemodialysis catheter placement. Peggy Cintron MD * Katerina Lao RN - 08/22/2022 8:29 AM CDT Problem: Ineffective Airway Clearance Goal: Patent airway Outcome: Not Progressing Pt continue to complain of dyspnea along with wheezing. HOB elevated, O2 maintained via venti mask. * Katerina Lao RN - 08/22/2022 7:40 AM CDT Report received from off going nurse. MD and daughter present at bedside. Pt laying in bed drowsy on venti mask at 4 L, 26% Fi 02. Resp labored. RT and phelobotmy obtained labs.MD aware of difficulties with swallowing and elevated BP. Per MD, we will continue to monitor pt on the floor. ICU is not warranted at this time. * Ree Rodrigues - 08/22/2022 6:56 AM CDT Images from the original note were not included. 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 Given IV ativan, hydral x3 , metoprolol x2, lasix, benadryl. Increased dyspena and SOB this morning with chest discomfort. PO meds held Hospital Course: Patient is a??81 year old??white??female??with a PMH of HTN and CKD5 (baseline Cr ~3.3), morphea who presented??to OSH??on 08/15/22??with??generalized weakness and nausea/vomiting,??transfered to 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 Stay has beencomplicated by hypertenstion 150s-170s/60s-77s requiring IV antihypertensives. ?? In AM of 08/15 developed diffuse, generalized weakness in addition to N/V. Vomited numerous times although cannot endorse a specific number of episodes or how many hours this bothered her for. Presented to OSH who obtained CTH noting??pontine IPH measuring 9*8*10 mm without mass effect or hydrocepha patrick??and was transferred for further evaluation. On arrival VSS and wnl. Lab work-up notable for Hgb 8.4 (at baseline), Cr 3.74; repeat labs the following day notable for Hgb 7.0, Cr 4.27. Patient was stabilized from a neurological perspective and was transferred to medicine for asymptomatic hyponatremia found on her labs. Initial workup with urine lytes was concerning for pre-renal hypovolemic hyponatremia and patient was started on NS IVF at a rate of 75 increased to 100cc/hr. Patients hyponatremia remained unchanged at 127 after interventions and repeat urine labs were notable for elevatedurine osmolality concerning for SIADH. Subsequently patient endorsed increased SOB with chest pain and workup was negative for pneumonia, VA, pneumothorax. CXR concerning for opacities c/w atelectasis and patient was given IS. Ddimer was elevated. Patient was also endorsing urinary retention that was acute during this hospitalization. This was possibly due to clonidine initiation for tight BP control. Patient was given flomax 0.8 mg and endorsed spontaneous voiding during that time. OBJECTIVE Vital Signs: Vitals: 08/22/22 0017 08/22/22 0350 08/22/22 0542 08/22/22 0549 BP: 174/57 (!) 119/102 148/57 Pulse: 73 75 80 72 Resp: 22 Temp: 97.3 ??F (36.3 ??C) SpO2: 97% 95% 96% Weight: Height: Temp Min: 97.1 ??F (36.2 ??C) Max: 98.8 ??F (37.1 ??C), Pulse Min: 53 Max: 120, Resp Min: 7 Max: 29, BP Min: 101/52 Max: 194/75 Intake & Output: In: 1300 [P.O.:1300] Out: 500 [Urine:500] Physical Exam: GEN: Alert elderly female lying in bed in NAD HEENT: NCAT, MMM, Oropharynx clear. Neck: Supple with full ROM, No JVD RESP: Decreased breath sounds b/l in lower lobes, no wheezing appreciated CARDIO: Regular rate and rhythm, No murmurs/rubs/gallops GI: Abdomen soft and non tender, non-distended, +BS EXT: No peripheral edema appreciated SKIN: warm and dry, no rashes/wounds/sores appreciated. NEURO: Alert and oriented to person, place, time and situation. No focal deficits Intake/Output Summary (Last 24 hours) at 08/22/2022 0656 Last data filed at 08/22/2022 0024 Gross per 24 hour Intake 900 ml Output 1350 ml Net -450 ml Current Medications: Scheduled: ??? 0.9% NaCl 3 mL Intracatheter q8h ??? cloNIDine 0.2 mg Oral TID ??? epoetin Deyanira-EPBX (Retacrit) injection 7,000 Units Subcutaneous q7 days ??? heparin 5,000 Units Subcutaneous TID ??? hydrALAZINE 50 mg Oral TID ??? labetalol 200 mg Oral q12h ??? NIFEdipine CR osmotic 24hr 90 mg Oral QDAY ??? polyethylene glycol 3350 17 g Oral QDAY ??? senna 17.2 mg Oral QDAY ??? sodium bicarbonate 1,300 mg Oral TID ??? sodium chloride 1 g Oral TID WC ??? tamsulosin 0.8 mg Oral QDAY Continuous: PRN: ??? SALINE LOCK, INSERT AND MAINTAIN AND 0.9% NaCl AND 0.9% NaCl ??? acetaminophen ??? albuterol HFA ??? hydrOXYzine HCl Significant Lab Results: Lab Results-Last 24 Hours Procedure Component Value Units Date/Time TROPONIN I [[id number]] Order Status: Sent Specimen: Blood OSMOLALITY URINE [[id number]] (Normal) Collected: 08/22/22351 Order Status: Completed Specimen: Urine Random Updated: 08/22/22537 Osmolality Urine 309 mOsm/kg CREATININE URINE RANDOM [[id number]] Collected: 08/22/22351 Order Status: Completed Specimen: Urine Random Updated: 08/22/22425 Creatinine Urine 30 mg/dL UREA NITROGEN URINE RANDOM [[id number]] Collected: 08/22/22351 Order Status: Completed Specimen: Urine Random Updated: 08/22/22425 Urea Nitrogen Random Urine 186 mg/dL LYTES (NA K CL) URINE RANDOM PANEL [[id number]] Collected: 08/22/22351 Order Status: Completed Specimen: Urine Random Updated: 08/22/22425 Sodium Urine 75 mmol/L Potassium Urine 35.9 mmol/L Chloride Random Urine 105 mmol/L TROPONIN I [[id number]] (Abnormal) Collected: 08/21/22 2340 Order Status: Completed Specimen: Blood Updated: 08/22/22 0005 Troponin I 0.058 ng/mL RENAL FUNCTION PANEL [[id number]] Order Status: Sent Specimen: Blood CBC W/O DIFFERENTIAL [[id number]] Order Status: Sent Specimen: Blood PT-INR SLH [[id number]] Order Status: Sent Specimen: Blood MAGNESIUM BLOOD [[id number]] Order Status: Sent Specimen: Blood BLOOD GASES ART + COOX PANEL [[id number]] (Abnormal) Collected: 08/21/221929 Order Status: Completed Specimen: Blood, arterial from Arterial Blood Updated: 08/21/221934 pH Arterial 7.34 pH pO2 Arterial 312 mmHg pCO2 Arterial 31 mmHg HCO3 Arterial 17 mmol/l BE Arterial -8.2 mmol/L Oxyhemoglobin Arterial 97.9 % Dexoyhemoglobin (HHB) % 0.2 % Methemoglobin 0.8 % Carboxyhemoglobin 1.2 % O2 Content Arterial 12.8 ml/dL Hemoglobin by COOX 8.7 g/dL O2 Saturation Arterial 100 % FI O2 Arterial 100.0 % Narrative: Carboxyhemoglobin Normal Concentration: Non-smokers: 0-2%; Smokers: 0-9%; Toxic: >20% BASIC METABOLIC PANEL (CALCIUM TOTAL) [[id number]] (Abnormal) Collected: 08/21/22 1825 Order Status: Completed Specimen: Blood Updated: 08/21/22 185 BUN 59 mg/dL Creatinine 4.05 mg/dL Sodium 127 mmol/L Potassium 3.9 mmol/L Chloride 101 mmol/L CO2 16 mmol/L Glucose 123 mg/dL Calcium 8.8 mg/dL Anion Gap 14 BUN/Creatinine Ratio 15 Osmolality Calculated 282 mOsm/kg eGFR by CKD-EPI 11 mL/min/1.73 m2 TROPONIN I [[id number]] (Abnormal) Collected: 08/21/22 1655 Order Status: Completed Specimen: Blood Updated: 08/21/22 1739 Troponin I 0.054 ng/mL OSMOLALITY URINE [[id number]] (Normal) Collected: 08/21/22 120 Order Status: Completed Specimen: Urine Random Updated: 08/21/22 123 Osmolality Urine 378 mOsm/kg UREA NITROGEN URINE RANDOM [[id number]] Collected: 08/21/22 1204 Order Status: Completed Specimen: Urine Random Updated: 08/21/22 123 Urea Nitrogen Random Urine 528 mg/dL SODIUM URINE RANDOM [[id number]] Collected: 08/21/221203 Order Status: Completed Specimen: Urine Random Updated: 08/21/221232 Sodium Urine 25 mmol/L CREATININE URINE RANDOM [[id number]] Collected: 08/21/221203 Order Status: Completed Specimen: Urine Random Updated: 08/21/221232 Creatinine Urine 93 mg/dL LYTES (NA K) URINE RANDOM PANEL [[id number]] Collected: 08/21/221203 Order Status: Completed Specimen: Urine Random Updated: 08/21/221232 Sodium Urine 25 mmol/L Potassium Urine 52.2 mmol/L TROPONIN I [[id number]] (Abnormal) Collected: 08/21/221122 Order Status: Completed Specimen: Blood Updated: 08/21/221205 Troponin I 0.073 ng/mL D-DIMER [[id number]] (Abnormal) Collected: 08/21/221122 Order Status: Completed Specimen: Blood Updated: 08/21/22 115 D-Dimer Quantitative 3.06 mcg/mL FEU Comment: In the absence of clinical symptoms, a value less than or equal to 0.5 mcg/mL FEU significantly decreases the probability of PE/DVT (negative predictive value >95%). 1 mcg/mL FEU = 1 Fibrinogen Equivalent Unit (approximates 0.5 mcg/ml of D-Dimer). ISTH DIAGNOSTIC SCORING SYSTEM FOR DIC Score 0 1 2 3 Platelet Count(x10^3/uL) > 100 < 100 < 50 N/A PT Prolongation above upper limit of normal 0-3 3-6 > 6 N/A range (seconds) Fibrinogen (mg/dL) > 100 < 100 N/A N/A D-Dimer (mcg/mL FEU) < 0.50 N/A 0.50-5.0 > 5 Calculate Cumulative Score: > or = 5 :compatible with overt DIC < 5 :suggestive for non-overt DIC N/A = Non applicable Reference: Br. J. Haematol. 145:24-33,2008. IMAGING: CXR 08/20 Interval development of perihilar and bibasilar predominant airspace opacities may represent pulmonary congestion and/or atelectasis/airspace disease. Slight interval increase in small left pleural effusion with associated basilar atelectasis but No pneumothorax is identified. Cardiac size is normal. Aortic atherosclerosis is noted. The superior mediastinal contours are within normal limits. Degenerative changes are seen in the imaged shoulders. US RETROPERITONEAL COMPLETE 08/20 Normal renal size. No evidence of nephrolithiasis, hydronephrosis, or solid renal mass. 1.5 x 1.1 cm simple cyst within the upper pole of the right kidney. Right pleural effusion. CXR 08/21 Small, left greater than right, pleural effusions with associated compressive atelectasis are noted. This is mildly increased on the right. Perihilar and bibasilar predominant interstitial opacification may represent a component of pulmonary congestion, stable to minimally decreased. No pneumothorax is visible. The cardiomediastinal silhouette is normal for portable technique. Degenerative changes are noted in the shoulders. ASSESSMENT & PLAN Kirsty Rea??is a 81 year old??female??w/PMH significant for CKD5 (baseline Cr ~3.3), HTN, morphea, Pontine hemorrhagic stroke s/p stabilization admitted for hyponatremia workup and medical stabilization prior to placement. ?? #SOB #respiratory distress -ddx: Anxiety, aspiration pneumonia, PE, aortic dissection,volume overload. 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 BP 190/70 at the time with SpO2 100%. EKG and trop wnl. ABG 7.34/31/312/17 given 80 of IV lasix with no improvement and quijano placed for strict I&O. - CXR perihilar and bibasilar predominant airspace opacities c/f pulmonary congestion/ atelectasis > repeat CXR unchanged. - EKG sinus bradycardia with first degree AV block -Trop.073 > .113 > .124, procal 0.1, d-dimer 3.06 -CT chest to assess for intrathoracic findings (dissection vs neoplasm) - consider starting CTX/flagyl per pulm recs c/f aspiration pneumonia c/b para pneumonic effusion. - failed speech evaluation > swallow study pending Plan: - CT chest f/u - CTX/Flagly initiated 08/22 - f/u swallow study - continue on NRB #HTN -??patiennt with BP to 190/70 I/s/o dyspnea, received IV hydral x3 and IV labetalol x1, metoprolol x2 > BP stabilized to 148/57 - Home Medications: HCTZ 12.5mg daily, Nifedipine ER 90mg, Labetalol 200mg BID. - BP Goal:??SBP 130-150 -Holding labetalol??200mg bid, nifedipine 90mg bid, hydralazine 50mg tid -hydralazine 15mg IV PRN, labetalol 10mg IV PRN (first line) ??- HOLDING ALL PO MEDS #hyponatremia -ddx: pre renal etiology c/f SIADH, hypovolemia, contrast induced, hx of nephrotic range proteinuria, CKD stage 5. - improvement of hyponatremia 127 > 129 - TSH 4.65, Triglycerides 64 - urine labs Urine Na 25 > 75 Urine K 52.2 > 35.9 Urine Cr 93 > 30 Urine Osm 378 > 309 Urine Urea 528 > 186 - FeUrea 39.4% suggesting intrarenal etiology - consider SIADH in the setting of increased urine osmolality with an increase in urine sodium improving on 1L fluid restriction. Plan: -Continue fluid restriction to 1L/24 hrs - repeat BMP AM #pontine hemorrhagic stroke - no additional stroke w/u pending - Continue Q??4??neurochecks; NIHSS Q daily - NSGY??signed off - BP Goal:??SBP 130-150 -??Swallow Evaluation:??within normal limits -??PT/OT Evaluation with recommendation for SNF placement -??DVT prophylaxis:??started hepatin 5000u tid 08/17 #TOÑA on CKD5 #non-gap metabolic acidosis - prerenal in setting of volume loss - Baseline Cr around 3.3 since 04/2022; CKD 2/2 HTN - Sees nephrology (Dr. Reyes) as outpatient; recent biopsy due to nephrotic range proteinuria that noted hypertensive nephrosclerosis - Urine Protein/Creatinine: 1.70 - nephrology follow up outpatient for HD initiation I/s/o worsening CKD status PLAN: - NPO after MN in anticipation of tunneled hemodialysis catheter placement. - sodium bicarb 1300 tid - EPO 7000 units/week (declined dose this week) - Bladder Scans q8h to evaluate for retention, if >350cc straight cath - f/u SPEP/UPEP and immunofixation - Avoid nephrotoxic medications and renally dose medications #urinary retention - patient with new onset urinary retention on admission - likely 2/2 clonidine use and inpatient hospitilization - would not change clonidine dose as patient is stable on hypertensive regimen and risks outweigh benefit for repeat intracranial bleed. PLAN: - bladder scans q8h, straight cath if > 350cc - flomax 0.8 #Normocytic anemia -??Hgb at presentation initially 8.4 (baseline) but dropped to 7.0 following IVF - Likely has component of anemia of chronic disease 2/2 renal dysfunction - Iron studies ordered while inpatient ??w/normal iron, although no ferritin -??Type and cross and 1unit pRBCs 08/18/22 for Hb of 6.2 - Iron studies ordered this hospitalization: - Iron 77 - TSat 31% - TIBC 248 - Ferritin 180 PLAN: - EPO 7000 units/week (declined dose this week) - defer IV Iron due to increased risk > repeat iron studies with PCP in 3 months - CTM Hgb, Transfuse for Hgb < 7.0 ?? #hx of intracardiac shunt -CTM Code: full Diet: renal Electrolytes: Replete PRN PPx: heparin Access: PIV Dispo: SNF ?? The above assessment and plan will be discussed with the attending. This note is not final until attested by attending physician. ?? Ree Rodrigues Internal Medicine [facility] 08/22/2022 6:56 AM Associated attestation - Heraclio Cabrera MD - 08/22/2022 3:02 PM CDT I have verified the documentation of the student including all history, exam, and medical decision-making details. I have personally performed a physical exam and have personally reviewed the data tosupport my medical decision-making as outlined in their note. I agree with their assessment and plan other than any corrections/additions as documented below. Corrections/Additions: Subjective: Overnight patient with worsening dyspnea and chest pain. Rapid response called and patient escalated to non-breather subsequently weaned to venti mask. Troponin/EKG recollected and unconcerning. Renal function and Sodium reassessed and grossly unchanged. Also of note the patient developed progressive dysphagia and reportedly choked while attempting to take medications on multiple occasions yesterday evening and into this morning. Consequently has not received her antihypertensive therapy. On exam today patient was ill-appearing with labored breathing. She appeared fatigued and somnolent although she was easy to arouse and was participator in exam. She endorsed significant chest pressure/heaviness worse than before and significant dyspnea. On exam did have diminished lung sounds in the bases, particularly on the right but no significant wheezes or crackles. Increased swelling in RLE and RUE noted. Of note, patient had reassuring ABG results from overnight and was satting well on present oxygen measures with reliable waveform although her breathing seemed labored. Due to concern for possible dissection, CT chest ordered which showed increased effusion on the right. As well as concern for possible aspiration vs. Infectious bronchial obstruciton on the right. Noevidence of dissection noted by radiology. Patient evaluated by speech therapy and noted to have dysphagia. Recommended to remain NPO. As a result of not getting her oral BP medications, BP became uncontrolled requiring multiple doses of PRN IV medications. Patient's mental status continued to declined although with no focal deficits and repeat CTH completed without gross change in previously noted bleed. Case discussed with nephrology who recommended initiation of HD. Given worsening mental status, respiratory distress and uncontrolled HTN requiring IV therapy in patient with known spontaneous intracranial bleeding recently patient discussed with ICU team and ultimately accepted for transfer this afternoon. Objective: Physical Exam: BP (S) (!) 182/69 Comment: IV meds given. notified Pulse 77 Temp 97.4 ??F (36.3 ??C) (Axillary) Resp 20 Ht 1.727 m (5' 8 ) Wt 75.5 kg (166 lb 6.4 oz) SpO2 95% GEN: Fatigued/somnolent ill-appearing female lying in bed HEENT: NCAT, Venti Mask in place. Neck: No obvious JVD, exam somewhat limited today. RESP: Diminished in bases, particularly on right. No wheezes/ronchi noted. CARDIO: Regular rate and rhythm, No murmurs/rubs/gallops GI: Abdomen soft and non tender, non-distended, +BS EXT: Bilateral 1+ edema R>L. Bilateral Upper extremity edema as well, RUE 1+ and LUE Trace. SKIN: warm and dry, no rashes/wounds/sores appreciated. NEURO: Alert and oriented to person, place, time and situation. No focal deficits. Globally weak. Labs Reviewed Imaging Reviewed Assessment & Plan: Respiratory Distress, Acute Hypoxic Respiratory Failure. Likely related to right-sided pleural effusion and suspected PNA/Aspiration. - IV Diuresis provided - Pulm Consulted for consideration of thoracentesis - continue Oxygen therapy - Possible PE, however as anticoagulation is presently contraindicated and patient has advanced CKDwill avoid CT PE Protcol at this time. Consider VQ study, however as it will likely not change release manager, will defer. Recent Spontaneous Pontine SAH and Uncontrolled HTN - Unable to tolerate PO at this time - Will continue PRN Hydralazine/Labetolol for now, transfer to ICU for closer hemodynamic monitoring and likely IV antihypertensive drip - CTH without extension of bleed at this time. Hyponatremia, Concern for SIADH - Continue fluid restriction Advanced CKD - Nephro following, they are planning to start dialysis tomorrow. - NPO @ MI for permacath. I personally spent approximately 1 hour at patient bedside today engaged in critical care activities. Date of Service: 08/22/2022 Heraclio Cabrera MD * Hazel Lane RN - 08/21/2022 8:42 PM CDT 0 bedside report from Vivian BOSS. As we were getting report pt became very Short of breath Non rebreather placed on pt at this time. ABGs done, a rapid response called. Pt c/o shoulder pain right side and mid sternum, EKG obtained at this time. New orders from MD on seen, place quijano, IV lasix. 2029 Quijano placed 400 out at this time. Pt tolerated well. Pt also made NPO for s/s of coughing when drinking and swallowing liquids. Will have Speech see in am. 214 pt bed alarming, she is trying to reposition herself, she wanted her hearing aids in however this RN suggested she try to sleep and turn TV off. Daughter at bedside sleeping. Pt given her inhaler for SOB and wheezing. Pt continues on the Venturi mask. 228 call out to MD in regards to pts c/o difficulty breathing. Oxygen sats 97% on 3L via venti mask. 314 AJ Resident at bedside will talk to MD in regards to plan going forward for pts anxiety vs SOB. * Hany Kunz MD - 08/21/2022 8:18 PM CDT [facility] DEPARTMENT OF INTERNAL MEDICINE Patient Name: Kirsty Rea 1940 Room: [facility] Date of Admission: 08/15/2022 Called to bedside by RN at 1933 for labored breathing with patient placed on venti mask. On arrivalVS: hypertension to 190s/70s, sinus in 70s on EKG, tachypnea into the 30s with SPO2 to 100% On a ventimask. On exam patient notable for crackles in the bases bilaterally. Obtained ABG which was notable for PH 7.34, PaO2 312, PCO2 31 with HCO3 17. Weaned to NC for comfort as patient with ABG supportive of respiratory compensation for underlying metabolic acidosis. Reviewed CXR from 1800 showing small bilat pulm effusions as well as nephrology recommendations. The patient had received fluids earlier with the presumption that TOÑA may have been 2/2 to pre-renal state however urine lytes with FEUREA supportive of intrinsic pathology. Thus administered 80 of IV lasix, placed quijano for accurate I/O as UA was not supportive of UTI, and made NPO to restrict fluids for the night and also if the patient is not responsive to lasix may require escalation of level of care Hany Kunz MD Internal Medicine, PGY-2 Pager [phone] 08/21/2022 8:26 PM . * Vivian Teran RN - 08/21/2022 3:09 PM CDT Problem: Fall Risk Goal: Fall risk and fall related injury risk are minimized (interventions related to the fall risk can be found in the flowsheet documentation) Outcome: Progressing Problem: Neurological Deficit Goal: Neurological status is stable or improving Outcome: Progressing Problem: Hemodynamic Status/Cardiac Output Goal: Patient has stable vital signs and fluid balance Outcome: Progressing Problem: Oxygenation/Respiratory Function Goal: Respiratory rate/effort will be within specified limits Outcome: Progressing Problem: Mobility Goal: Patient's mobility/activity will be maintained as optimum level for age, diagnosis and physical limitations Outcome: Progressing Goal: Continuum of care needs are further met through referral to outpatient services when appropriate. Outcome: Progressing Goal: Patient reports the ability to perform Activities of Daily Living. Outcome: Progressing Problem: Communication Impairment/Dysarthria Goal: Ability to express needs and understand communication Outcome: Progressing Problem: Nutrition Goal: Nutritional status is improving Outcome: Progressing Problem: Aspiration Precautions Goal: Patient's risk of aspiration is minimized Outcome: Progressing Problem: Glycemic Control Goal: Clinical indication of glycemia balance is achieved Outcome: Progressing Problem: Knowledge Deficit,Education,Discharge Plan Goal: The patient/family will understand cerebrovascular disease and its symptoms, treatment and management Outcome: Progressing Problem: Mobility Goal: STG - Patient will ambulate Outcome: Progressing Problem: Pain/Discomfort Goal: Patient exhibits reduced pain/discomfort as evidenced by pain scores Outcome: Progressing Goal: Patient uses pharmacological and non-pharmacological pain management strategies. Outcome: Progressing Goal: Patient verbalizes acceptable level of pain relief and ability to engage in desired activity. Outcome: Progressing * Josh Harrell MD - 08/21/2022 12:11 PM CDT Nephrology Progress Note 08/21/2022 12:12 PM Patient Name: Kirsty Rea (81 year old) Room Number: 515/01 Attending: Héctor Silva MD Hospital Day: 6 Subjective: Interval history: - Sob today and requiring 3 L O2 - actively wheezing no cp - no adequate documentation of I/os Objective: Patient Vitals for the past 6 hrs: Temp Pulse Resp BP BP Method 08/21/22 0818 97.4 ??F (36.3 ??C) 70 18 168/93 Automatic Intake/Output Summary (Last 24 hours) at 08/21/2022 1212 Last data filed at 08/20/2022 1758 Gross per 24 hour Intake 150 ml Output -- Net 150 ml Physical Exam General: Dyspneic HENT: NC/AT Eyes: Anicteric. Non-injected. Chest: fine crackles and wheezes Cardiovascular: RRR. No murmurs, rubs, or gallops Abdomen: Soft. NT/ND. Normal BS+. Extremities: No signs of clubbing, cyanosis, or edema. Skin: Warm. Dry. Neurological: anxious Medications SCHEDULED MEDICATIONS: 0.9% NaCl injection 3 mL, Intracatheter, q8h cloNIDine (Catapres) tablet 0.2 mg, Oral, TID epoetin deyanira-EPBX (Retacrit) injection 7,000 Units, Subcutaneous, q7 days heparin injection 5,000 Units, Subcutaneous, TID hydrALAZINE (Apresoline) tablet 50 mg, Oral, TID labetalol (Normodyne; Trandate) tablet 200 mg, Oral, q12h NIFEdipine CR osmotic 24hr (Procardia-XL) tablet 90 mg, Oral, QDAY polyethylene glycol 3350 (Miralax) packet 17 g, Oral, QDAY senna (Senokot) tablet 17.2 mg, Oral, QDAY sodium bicarbonate tablet 1,300 mg, Oral, BID tamsulosin (Flomax) capsule 0.8 mg, Oral, QDAY ?? [COMPLETED] albuterol (Proventil;Ventolin) (5 MG/ML) 0.5% nebulizer solution 2.5 mg, Inhalation,Once CONTINUOUS MEDICATIONS: ?? 0.9% NaCl infusion, Intravenous, Continuous PRN MEDICATIONS: 0.9% NaCl injection 1-10 mL, Intracatheter, PRN acetaminophen (Tylenol) tablet 500 mg, Oral, q4h PRN albuterol HFA (Proventil; Ventolin; Proair) 108 (90 Base) MCG/ACT inhaler 2 puff, Inhalation, q6h PRN ?? hydrOXYzine HCl (Atarax) tablet 10 mg, Oral, TID PRN Data Review Recent Labs Component Name 08/21/2221208/20/22 0250 08/19/22 1056 WBC 3.7 4.0 4.6 HGB 7.5* 7.3* 7.6* HCT 22.3* 21.8* 22.1* PLTCOUNT 164 153 159 Recent Labs Component Name 08/21/2221208/15/22 0339 03/09/22 1312 SODIUM - - 140 POTASSIUM 3.9 - 3.9 CHLORIDE - - 109 CO2 15* - 21 BUN 63* - 65* CREATININE 4.29* - 2.74* CALCIUM 8.6 - 8.7 ALBUMIN - - 3.6 ALT - - 12 AST - - 14 GLUCOSE 110 - 99 - = values in this interval not displayed. Recent Labs Component Name 08/21/2221208/20/22 0250 08/19/22 1056 INR 0.9 1.0 1.0 Microbiology: Reviewed in Epic Imaging: Reviewed in Epic Assessment and Plan: #Hyponatremia - DDx: Hypovolemia v SIADH (2/2 IPH) v Nephrosis v less likely CHF, liver disease, paraproteinemia/? Hypervolemia - Na unchanged despite NS, now in clinical fluid overload, obtain CXR, Lasix IV 80 mgx1, with repeat urine lytes, Bladder scan / straight cath is retaining - f/u SPEP/UPEP and immunofixation from 08/19 - Increase sodium bicarb as below #TOÑA on CKD5 #Non-Anion Gap Metabolic Acidosis - Most likely prerenal in setting of vomiting, blood loss, diuretic use prior to presentation; other less likely etiologies include obstruction (does have some retention but urinary habits unchanged from home), infection (trace bacteria but no other signs to suggest) - Baseline Cr around 3.3 since 04/2022; CKD 2/2 HTN-- now 4.29 - Sees nephrology (Dr. Reyes) as outpatient; recent biopsy due to nephrotic range proteinuria that noted hypertensive nephrosclerosis, no acute findings PLAN: - Continue tamsulosin 0.4mg for urinary retention; if concern for BP stop clonidine - consider Quijano cath for strict I/Os - Increase Sodium bicarb 1300 tid ?? #Hypertension - Home Medications: HCTZ 12.5mg daily, Nifedipine ER 90mg, Labetalol 200mg BID - SBPs have been 130s-150s [facility] PLAN: - Continue labetalol and home nifedipine ?? #Normocytic Anemia - Hb 7.5 2/2 CARLA and ACD - Iron 77 - TSat 31% - TIBC 248 - Ferritin 180 - Consider IV Iron 200mg (can give up to 5 doses over 14 day period; recommend up to 5 days worth or throughout remainder of inpatient stay if shorter than 5 days) - Transfuse for Hgb < 7.0 - Epo 7000 units /week ? Patient will be seen and discussed with attending physician, Dr. Cintron. Josh Harrell MD 08/21/2022 Nephrology Fellow 08/21/2022 12:12 PM Associated attestation - Peggy Cintron MD - 08/21/2022 1:18 PM CDT Attending Addendum I have seen and examined the patient with the fellow today @ 10:55AM. I agree with the findings andplan of care as documented by the fellow. In addition I note: 81 yo female with advanced chronic kidney disease due to hypertensive nephrosclerosis per kidney biopsy (based on Dr. Reyes's note) and other medical problems as per consult note,was transferred from OSH for further management of ICH. Report of recent nausea and vomiting, and took HCTZ at home. Today, she reports dyspnea at rest. Tachypnea and audible wheezes, therefore spoke to nurse and discontinued IVF. Recommend albuterol nebulizer treatments, check post-void residual using bladder scan, and consider IV diuretic trial if no significant improvement in respiratory status after nebulizer treatment. Hyponatremia in the setting of recent poor oral intake and concern for SIADH. Continue free water restriction (1L/24 hours), and monitor renal panel every 8- 12 hours. Metabolic acidosis withlower bicarbonate level. Agree with advancing sodium bicarbonate dose. Please see fellow's note forfurther details. * Jessenia Taylor SLP - 08/21/2022 10:09 AM CDT [facility] Department of Physical Medicine & Rehabilitation Progress Note Patient: Kirsty Rea Med Record Number: [id number] Date of : 1940 Age: [age] year old 08/21/22 1000 Missed Visit Missed Visit Other (Comment) Attempted to see patient for bedside swallowing evaluation, patient meeting with MD team at this time. ST will continue to follow and complete assessment when schedule permits. * Ree Rodrigues - 08/21/2022 7:16 AM CDT Images from the original note were not included. [facility] INTERNAL MEDICINE PROGRESS NOTE Patient: Kirsty Rea Sex: female Age: [age] year old Date of : 1940 Date of Admission: 08/15/2022 Date: 08/21/2022 LOS: 6 SUBJECTIVE Interval History: Endorsing increased SOB this morning with rib pain and right neck pain. Endorsed spontaneous urination overnight with no dysuria/hematuria Hospital Course: Patient is a??81 year old??white??female??with a PMH of HTN and CKD5 (baseline Cr ~3.3), morphea who presented??to OSH??on 08/15/22??with??generalized weakness and nausea/vomiting,??transfered to 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 Stay has beencomplicated by hypertenstion 150s-170s/60s-77s requiring IV antihypertensives. ?? In AM of 08/15 developed diffuse, generalized weakness in addition to N/V. Vomited numerous times although cannot endorse a specific number of episodes or how many hours this bothered her for. Presented to OSH who obtained CTH noting??pontine IPH measuring 9*8*10 mm without mass effect or hydrocepha patrick??and was transferred for further evaluation. On arrival VSS and wnl. Lab work-up notable for Hgb 8.4 (at baseline), Cr 3.74; repeat labs the following day notable for Hgb 7.0, Cr 4.27. Patient was stabilized from a neurological perspective and was transferred to medicine for asymptomatic hyponatremia found on her labs. Initial workup with urine lytes was concerning for pre-renal hypovolemic hyponatremia and patient was started on NS IVF at a rate of 75 increased to 100cc/hr. Patients hyponatremia remained unchanged at 127 after interventions and repeat urine labs were notable for elevatedurine osmolality concerning for SIADH. Subsequently patient endorsed increased SOB with chest pain and workup was negative for pneumonia, VA, pneumothorax. CXR concerning for opacities c/w atelectasis and patient was given IS. Ddimer was elevated. Patient was also endorsing urinary retention that was acute during this hospitalization. This was possibly due to clonidine initiation for tight BP control. Patient was given flomax 0.8 mg and endorsed spontaneous voiding during that time. OBJECTIVE Vital Signs: Vitals: 08/20/22 0807 08/20/22 1158 08/20/22 1952 08/21/22 0009 BP: 144/62 122/52 136/67 113/85 Pulse: 93 67 67 65 Resp: 18 18 18 18 Temp: 97.8 ??F (36.6 ??C) 97.1 ??F (36.2 ??C) 97.2 ??F (36.2 ??C) SpO2: 95% 96% 97% 98% Weight: Height: Temp Min: 97.1 ??F (36.2 ??C) Max: 98.8 ??F (37.1 ??C), Pulse Min: 53 Max: 93, Resp Min: 7 Max: 29,BP Min: 101/52 Max: 178/90 Intake & Output: In: 400 [P.O.:400] Out: 450 [Urine:450] Physical Exam: GEN: Alert elderly female lying in bed in NAD HEENT: NCAT, MMM, Oropharynx clear. Neck: Supple with full ROM, No JVD RESP: Decreased breath sounds b/l in lower lobes CARDIO: Regular rate and rhythm, No murmurs/rubs/gallops GI: Abdomen soft and non tender, non-distended, +BS EXT: Trace to 1+ edema in LLE and RLE SKIN: warm and dry, no rashes/wounds/sores appreciated. NEURO: Alert and oriented to person, place, time and situation. No focal deficits Intake/Output Summary (Last 24 hours) at 08/21/2022 0716 Last data filed at 08/20/2022 1758 Gross per 24 hour Intake 400 ml Output -- Net 400 ml Current Medications: Scheduled: ??? [START ON 08/22/2022] cloNIDine 0.1 mg Oral BID ??? cloNIDine 0.2 mg Oral BID ??? epoetin Deyanira-EPBX (Retacrit) injection 7,000 Units Subcutaneous q7 days ??? heparin 5,000 Units Subcutaneous TID ??? hydrALAZINE 50 mg Oral TID ??? labetalol 200 mg Oral q12h ??? NIFEdipine CR osmotic 24hr 90 mg Oral QDAY ??? polyethylene glycol 3350 17 g Oral QDAY ??? senna 17.2 mg Oral QDAY ??? sodium bicarbonate 1,300 mg Oral BID ??? tamsulosin 0.8 mg Oral QDAY Continuous: 0.9% NaCl IV, , Last Rate: 100 mL/hr at 08/20/22 1605 PRN: ??? acetaminophen ??? albuterol HFA Significant Lab Results: Lab Results-Last 24 Hours Procedure Component Value Units Date/Time PHOSPHORUS BLOOD [[id number]] (Abnormal) Collected: 08/21/22212 Order Status: Completed Specimen: Blood Updated: 08/21/22417 Phosphorus 5.8 mg/dL BASIC METABOLIC PANEL (CALCIUM TOTAL) [[id number]] (Abnormal) Collected: 08/21/22212 Order Status: Completed Specimen: Blood Updated: 08/21/22417 BUN 63 mg/dL Creatinine 4.29 mg/dL Sodium 127 mmol/L Potassium 3.9 mmol/L Chloride 101 mmol/L CO2 15 mmol/L Glucose 110 mg/dL Calcium 8.6 mg/dL Anion Gap 15 BUN/Creatinine Ratio 15 Osmolality Calculated 283 mOsm/kg eGFR by CKD-EPI 10 mL/min/1.73 m2 MAGNESIUM BLOOD [[id number]] (Normal) Collected: 08/21/22212 Order Status: Completed Specimen: Blood Updated: 08/21/22417 Magnesium 2.0 mg/dL PT-INR [facility] [[id number]] (Abnormal) Collected: 08/21/22212 Order Status: Completed Specimen: Blood Updated: 08/21/22413 PT 11.9 Seconds INR 0.9 Comment: The suggested therapeutic range for standard coumadin (warfarin) therapy is an INR of 2.0-3.0. For high-risk patients (Mechanical Mitral Valve Prosthesis, etc.), the suggested prophylactic therapeutic range is an INR of 2.5-3.5. CBC W/O DIFFERENTIAL [[id number]] (Abnormal) Collected: 08/21/22212 Order Status: Completed Specimen: Blood Updated: 08/21/22337 WBC 3.7 10??3/uL RBC 2.67 10??6/uL Hemoglobin 7.5 g/dL Hematocrit 22.3 % MCV 83.5 fL MCH 28.1 pg MCHC 33.6 g/dL Platelet Count 164 10??3/uL RDW-SD 40.8 fL RDW-CV 13.3 % MPV 9.9 fL nRBC Absolute 0.00 10??3/uL nRBC Auto 0.0 /100 WBC PROCALCITONIN LEVEL [[id number]] (Normal) Collected: 08/20/22 1244 Order Status: Completed Specimen: Blood Updated: 08/20/22 1356 PROCALCITONIN 0.10 ng/mL Narrative: The change in procalcitonin (PCT) concentration over time provides support in decision making on antibiotic discontinuation for suspected or confirmed septic patients. Follow-up samples should be tested once every 1-2 days based upon physician discretion taking into account the patient???s evolution and progress. Consider discontinuation of antibiotic therapy if the PCT current is <= 0.5 ng/mL or if the delta PCT is > 80%. Duration of antibiotics should not be determined solely on PCT; established guidelines for the indication should be followed. ?? PCT peak: Highest observed PCT concentration ?? PCT current: Most recent PCT concentration ?? Calculate delta PCT using the following equation: Delta PCT = PCT Peak - PCT current X 100% PCT Peak The Change in Procalcitonin Calculator is available at www.[employer]go[employer].ClaimKit If clinical picture has not improved and PCT remains high, reevaluate and consider treatment failure or other causes. TROPONIN I [[id number]] (Abnormal) Collected: 08/20/22 1244 Order Status: Completed Specimen: Blood Updated: 08/20/22 1323 Troponin I 0.113 ng/mL TROPONIN I [[id number]] Order Status: Canceled Specimen: Blood TROPONIN I [[id number]] Order Status: Canceled Specimen: Blood TROPONIN I [[id number]] (Abnormal) Collected: 08/20/22 0751 Order Status: Completed Specimen: Blood Updated: 08/20/22 0831 Troponin I 0.124 ng/mL IMAGING: CXR 08/20 Interval development of perihilar and bibasilar predominant airspace opacities may represent pulmonary congestion and/or atelectasis/airspace disease. Slight interval increase in small left pleural effusion with associated basilar atelectasis but No pneumothorax is identified. Cardiac size is normal. Aortic atherosclerosis is noted. The superior mediastinal contours are within normal limits. Degenerative changes are seen in the imaged shoulders. US RETROPERITONEAL COMPLETE 08/20 Normal renal size. No evidence of nephrolithiasis, hydronephrosis, or solid renal mass. 1.5 x 1.1 cm simple cyst within the upper pole of the right kidney. Right pleural effusion. ASSESSMENT & PLAN Kirsty Rea??is a 81 year old??female??w/PMH significant for CKD5 (baseline Cr ~3.3), HTN, morphea, Pontine hemorrhagic stroke s/p stabilization admitted for hyponatremia workup and medical stabilization prior to placement. ?? #hyponatremia -ddx: pre renal etiology c/f SIADH, hypovolemia, contrast induced, hx of nephrotic range proteinuria, CKD stage 5. - continues to be hyponatremic at 127 - asymptomatic with no N/V/headache/confusion. - TSH 4.65, Triglycerides 64 - initial urine studies inconclusive with likely prerenal etiology - repeat urine labs I/s/o unchanged sodium levels despite treatment initiation Urine Na 25 Urine K 52.2 Urine Cr 93 Urine Osm 378 Urine Urea 528 - FeNa 0.9% a/w pre renal etiology, FeUrea 38.7% Suggesting intrarenal etiology - consider SIADH in the setting of increased urine osmolality with an increase in urine sodium in the setting of continuous fluid rehydration. Plan: -fluid restriction to 1L/24 hrs - repeat BMP AM #SOB #AHRF with new oxygen requirement -ddx: Anxiety, pneumonia, atelectasis,volume overload, PE, PTX, aortic dissection, VA. - patient with intermittent O2 use on 3L this morning with non specific cardiac and infectious workup. - no oxygen requirement at home - saturating at 98% - CXR perihilar and bibasilar predominant airspace opacities c/f pulmonary congestion/ atelectasis > repeat CXR unchanged. - EKG sinus bradycardia with first degree AV block -Trop.073 > .113 > .124, procal 0.1, d-dimer 3.06 - IS to bedside with confirmed usage throughout the day - Echo on 08/16 with mild pulmonary HTN and dilated RA estimated pulmonary arterial systolic pressure is 48 mmHg. - defer lasix for now, no considerable sign of pulm edema on CXR with no dramatic increase in oxygen. Will re evaluate in AM for O2 requirement. Plan: - atarax PRN for anxiety - swallow eval with speech therapy - watch for VS changes #pontine hemorrhagic stroke - no additional stroke w/u pending - Continue Q??4??neurochecks; NIHSS Q daily - NSGY??signed off - BP Goal:??SBP 130-150 -??Swallow Evaluation:??within normal limits -??PT/OT Evaluation with recommendation for SNF placement -??DVT prophylaxis:??started hepatin 5000u tid 08/17 #HTN -??Home Medications: HCTZ 12.5mg daily, Nifedipine ER 90mg, Labetalol 200mg BID. - SBPs have been 130s-150s while here at [facility] - BP Goal:??SBP 130-150 -currently on labetalol??200mg bid, nifedipine 90mg bid, hydralazine 50mg tid -hydralazine 10mg IV PRN, labetalol 10mg IV PRN ?? #TOÑA on CKD5 #non-gap metabolic acidosis Ddx: prerenal in setting of vomiting, blood loss, diuretic use prior to presentation; other less likely etiologies include obstruction (does have some retention but urinary habits unchanged from home), infection (trace bacteria but no other signs to suggest) - Baseline Cr around 3.3 since 04/2022; CKD 2/2 HTN - Sees nephrology (Dr. Reyes) as outpatient; recent biopsy due to nephrotic range proteinuria that noted hypertensive nephrosclerosis, no acute findings - FENa 0.4% c/f prerenal etiology - Urine Protein/Creatinine: 1.70 - no spontaneous urination since inpatient PLAN: - Start sodium bicarb 650mg BID > Increased to 1300 tid - recs for EPO 7000 units/week (declined dose this week) - Bladder Scans q8h to evaluate for retention, if >350cc straight cath - f/u SPEP/UPEP and immunofixation - Avoid nephrotoxic medications and renally dose all medications that are given #urinary retention - patient with new onset urinary retention on admission - likely 2/2 clonidine use and inpatient hospitilization - would not change clonidine dose as patient is stable on hypertensive regimen and risks outweigh benefit for repeat intracranial bleed. PLAN: - bladder scans q8h, straight cath if > 350cc - increase flomax to .8 #Normocytic anemia -??Hgb at presentation initially 8.4 (baseline) but dropped to 7.0 following IVF - Likely has component of anemia of chronic disease 2/2 renal dysfunction - Iron studies ordered while inpatient ??w/normal iron, although no ferritin -??Type and cross and 1unit pRBCs 08/18/22 for Hb of 6.2 - Iron studies ordered this hospitalization: - Iron 77 - TSat 31% - TIBC 248 - Ferritin 180 PLAN: - Refused Retacrit 7000U - defer IV Iron due to increased risk > repeat iron studies with PCP in 3 months - CTM Hgb, Transfuse for Hgb < 7.0 ?? #hx of intracardiac shunt -CTM Code: full Diet: renal Electrolytes: Replete PRN PPx: heparin Access: PIV Dispo: SNF ?? The above assessment and plan will be discussed with the attending. This note is not final until attested by attending physician. ?? Ree Moodylupe Internal Medicine [facility] 08/21/2022 7:16 AM Associated attestation - Heraclio Cabrera MD - 08/21/2022 4:20 PM CDT I have verified the documentation of the student including all history, exam, and medical decision-making details. I have personally performed a physical exam and have personally reviewed the data tosupport my medical decision-making as outlined in their note. I agree with their assessment and plan other than any corrections/additions as documented below. Corrections/Additions: Subjective: Patient somewhat anxious today. Did endorse non-specific chest discomfort and SOB today. Objective: Physical Exam: BP 156/59 Pulse 69 Temp 97.4 ??F (36.3 ??C) (Axillary) Resp 22 Ht 1.727 m (5' 8 ) Wt 75.5kg (166 lb 6.4 oz) SpO2 98% GEN: Alert elderly female in NAD HEENT: NCAT, MMM, Oropharynx clear. Neck: Supple with full ROM, No JVD RESP: Clear to auscultation bilaterally CARDIO: Regular rate and rhythm, No murmurs/rubs/gallops GI: Abdomen soft and non tender, non-distended, +BS EXT: Trace to 1+ LE edema L > R SKIN: warm and dry, no rashes/wounds/sores appreciated. NEURO: Alert and oriented to person, place, time and situation. No focal deficits Labs Reviewed Assessment & Plan: Hyponatremia, Concern for SIADH - Will place on fluid restriction and observe. - stop IVF HTN and Spontaneous Intracranial bleed - Continue Labetalol, Nifedipine, Hydralazine and Clonidine Date of Service: 08/21/2022 Hreaclio Cabrera MD * Maryana Barnes RN - 08/21/2022 5:51 AM CDT Patient had complaints of neck pain. Patient was mediated with tylenol as ordered. No over night issues . Bed in low position and call light within reach * Maryana Barnes RN - 08/21/2022 5:35 AM CDT Problem: Fall Risk Goal: Fall risk and fall related injury risk are minimized (interventions related to the fall risk can be found in the flowsheet documentation) Outcome: Progressing * Vanessa Blakely, JUDIT - 08/20/2022 3:32 PM CDT [facility] Department of Physical Medicine & Rehabilitation Progress Note Patient: Kirsty eRa [facility] Record Number: [id number] Date of : 1940 Age: [age] year old 08/20/22 1516 Missed Visit Missed Visit MD's at bedside at time of visit, will attempt swallow eval again tomorrow Vanessa Barr M.S., [facility] Speech Language Pathologist [phone] * Richard Ojeda PT - 08/20/2022 2:30 PM CDT [facility] Physical Medicine and Rehabilitation Physical Therapy Progress Note Patient: Kirsty Rea [facility] Record Number: [id number] Date of : 1940 Age: [age] year old PPE worn by staff: eye protection;gloves;mask - procedural PPE worn by patient: gown - patient, clean;mask - procedural;socks - clean Discharge Recommendation: Patient will benefit from intense 3 hour per day multidisciplinary inpatient therapies due to decreased independence with functional mobility. SUBJECTIVE: Subjective: I feel off today. Pain Assessment: Pain Rating Score #: 0 Follow-up for pain: No follow-up for pain indicated and patient agreed to proceed with treatment PRECAUTIONS: Weight Bearing Status: (WBAT) Activity Level: (Amb with assist) OBJECTIVE: At start of therapy session, patient found in bed and with no alarm General Appearance: adult female in supine in NAD LDAs: IV's: Peripheral line Vitals: (*Assess the 3 levels of oxygen saturations both for room air and 02 unless rest on room air is 88% or less). Rest HR: 61 Ex/Gait/Activity Without 02 HR: 82 Post Activity HR: 72 Observations: Pt with increased SOB following ambulation; cues for PLB and decreasing RR; HR monitored via Tele monitor Mental Status/Cognition: Level of Consciousness-Adult: Alert Orientation Level: Oriented X4 Cognition: Follows Commands-Consistent;Judgement-decreased;Safety awareness-decreased;Impulsive;Processing-delayed Mobility: A gait belt and non-slip socks were used for all out of bed activity this date. Bed Mobility: Supine to Sit: Stand By Assist with HOB in semi-fowlers position Sit to Supine: Activity Does Not Occur (in chair post session) Transfers: Sit to Stand: Minimal Assistance;Requires Verbal Cues for Safety;Requires Verbal Cues for Technique([id number] throughout session;) Stand to Sit: Minimal Assistance;Requires Verbal Cues for Safety;Requires Verbal Cues for Technique(cues for eccentric control) Gait: Weight Bearing Status: (WBAT) Distance Ambulated: 140 FEET (total; 70feet x2reps, standing rest break) Ambulation: Assistive Device: Gait Belt;Walker-2 Wheeled Ambulation: Level of Assistance: Minimum Assistance Ambulation: Gait Deviations: Deedee - Decreased;Base of Support - Decreased;Heel Strike - Decreased;Increased Trunk Flexion;Increased Weight Bearing through Upper Extremity (pt impuslive with mobilty and required constant cues for proper w/w use; attemtped to lean on B forearms while ambulating with full trunk flexion on w/w; educated on safety) Balance: Balance Scales/Tests Used: Sitting: Static/Dynamic;Standing: Static/Dynamic Sitting - Static: Good - Sitting - Dynamic: Good - Standing - Static: Fair;With Both Upper Extremity's Support Standing - Dynamic: Fair -;With Both Upper Extremity's Support ACTIVITY TOLERANCE: Patient's activity tolerance: fair. TREATMENT/INTERVENTIONS: strengthening exercises w31yaly each: LAQ, marching, ankle pumps, hip abduction and sit<>stand [id number]), bed mobility training, transfer training, gait training, balance activities, monitoring of vitals and cognitive stimulation Modified Elizabeth: Current Modified Elizabeth Score: 4 EDUCATION: While performing PT, Patient was instructed in:functional mobility training, weight bearing status, home exercise program, use of adaptive equipment, discharge planning Presented to patient who demonstrates Fair understanding of instructions given. ASSESSMENT: Patient would benefit from additional Physical Therapy sessions to achieve the following functionalgoals to enhance independence. Short Term Goals: Goal formation??with patient Patient will transfer sit to/from stand??with stand by assist Patient will transfer bed to/from chair??with stand by assist Patient will ambulate??100??feet with SBA??without??AD (updated 08/20) ?? Non Destructive Testing Scientist Goal(s): Patient to discharge to appropriate next level of inpatient care. INFORMED CONSENT TO TREATMENT: Plan of care including recommended therapy, goals and frequency, discussed with patient who understands and agrees to proceed. Equipment Issued: none Plan: Patient continues to benefit from skilled therapy services., Goals updated this date. If patient is discharged from the facility, this note serves as a discharge summary if further physical therapy visits did not occur. Refer to filed flowsheet for further details. Following therapy session, patient left in patient bedside chair, with chair alarm on, with call light within reach, with RNEsperanza aware, with therapy cues visible on white board. * Esperanza Sylvester RN - 08/20/2022 1:16 PM CDT Pt instructed to use call light for assistance. Call light. Bedside table and personal belongings within pts reach. Problem: Fall Risk Goal: Fall risk and fall related injury risk are minimized (interventions related to the fall risk can be found in the flowsheet documentation) Outcome: Progressing Problem: Neurological Deficit Goal: Neurological status is stable or improving Outcome: Progressing Problem: Hemodynamic Status/Cardiac Output Goal: Patient has stable vital signs and fluid balance Outcome: Progressing Problem: Oxygenation/Respiratory Function Goal: Respiratory rate/effort will be within specified limits Outcome: Progressing Problem: Mobility Goal: Patient's mobility/activity will be maintained as optimum level for age, diagnosis and physical limitations Outcome: Progressing Goal: Continuum of care needs are further met through referral to outpatient services when appropriate. Outcome: Progressing Goal: Patient reports the ability to perform Activities of Daily Living. Outcome: Progressing Problem: Communication Impairment/Dysarthria Goal: Ability to express needs and understand communication Outcome: Progressing Problem: Nutrition Goal: Nutritional status is improving Outcome: Progressing Problem: Aspiration Precautions Goal: Patient's risk of aspiration is minimized Outcome: Progressing Problem: Glycemic Control Goal: Clinical indication of glycemia balance is achieved Outcome: Progressing Problem: Knowledge Deficit,Education,Discharge Plan Goal: The patient/family will understand cerebrovascular disease and its symptoms, treatment and management Outcome: Progressing Problem: Mobility Goal: STG - Patient will ambulate Outcome: Progressing Problem: Pain/Discomfort Goal: Patient exhibits reduced pain/discomfort as evidenced by pain scores Outcome: Progressing Goal: Patient uses pharmacological and non-pharmacological pain management strategies. Outcome: Progressing Goal: Patient verbalizes acceptable level of pain relief and ability to engage in desired activity. Outcome: Progressing * Pillo Calzada OT - 08/20/2022 12:59 PM CDT [facility] Physical Medicine and Rehabilitation Occupational Therapy Progress Note Patient: Kirsty Rea Med Record Number: [id number] Date of : 1940 Age: [age] year old PPE worn by staff: eye protection;gloves;mask - procedural Discharge Recommendation: Patient will benefit from intense 3 hour per day multidisciplinary inpatient therapies. Activity Level: as tolerated PRECAUTIONS: Medical/Surgical Precaution: (falls) SUBJECTIVE: Pt is perseverating on wanting the incontinence briefs off, states she does not wear briefs at home but does have occasional stool incontinence She manages by wear 2 sets of underwear. Pain Assessment: Pain Rating Score #: 0 Follow-up for pain: No follow-up for pain indicated and patient agreed to proceed with treatment OBJECTIVE: At start of therapy session, patient found in bed General Appearance: elderly female, supine with eyes closed LDA: IV's: Peripheral line Vitals: (*Assess the 3 levels of oxygen saturations both for room air and 02 unless rest on room air is 88% or less). Rest BP: 129/67 HR: 56 Sp02 Sp02 97% Room Air L O2 Ex/Gait/Activity Without 02 BP: HR: 58 Sp02 99% Room Air Ex/Gait/Activity With 02 BP: HR: Sp02 L O2 Post Activity BP: HR: Sp02 Sp02 L O2 Room Air Observations: moderate dyspnea with minimal activity Mental Status/Cognition: Orientation Level: Oriented X4 (min cues for year, 1818, then 1921 self corrected immediately to 2021) Cognition: (follows simple 1 step with intermittent cues for comprehension, attention and safety; verbalized fair insight into functional limitations; demonstrates poor insight into functional limitations by frequently reaching/leaning outside sitting balance) Memory: (recalls hospital event, e.g. in restroom daily, to therapy gym yesterday, up to b/s chair once during hospitalization) Awareness of Errors: Assistance required to identify errors made;Assistance required to correct errors made Problem Solving: Assistance required to generate solutions;Assistance required to identify errors made;Assistance required to implement solutions Mobility: a gait belt and non-slip socks were used for all out of bed activity this date. Bed Mobility: Rolling: (unable to follow commands for log roll with eyes closed) Supine to Sit: Minimal Assistance with HOB flat Transfers: Sit to Stand: Minimal Assistance (after 2 failed trials with pt not achieving standing and returning to sitting) Stand to Sit: Minimal Assistance Bed to Chair: Minimal Assistance to Left Balance: Sitting - Static: Fair - Sitting - Dynamic: Fair - Standing - Static: Fair - Standing - Dynamic: Fair - Comments: Activities of Daily Living: moderate assist doff briefs and don underwear, mod assist socks, + urine incontinence Splint Issued/Checked: none ACTIVITY TOLERANCE: Patient's activity tolerance: fair plus Modified Elizabeth: Current Modified Elizabeth Score: 4 TREATMENT/INTERVENTIONS: ADL training Cognitive retraining Functional transfer training Endurance training Bed mobility Safety awareness EDUCATION: While performing OT, Patient was instructed in:functional mobility training, self-care training, cognitive retraining, safety awareness/fall precautions Presented to patient who demonstrates fair understanding of instructions given. INFORMED CONSENT TO TREATMENT: Plan of care including recommended therapy, goals and frequency, discussed with patient who understands and agrees to proceed. ASSESSMENT: Functional performance limited due to: limited activities of daily living, decreased functional mobility, decreased functional balance, decreased cognition , decreased safety awareness, upper extremity functional impairments, decreased endurance and activity tolerance, decreased coordination and decreased visual motor skills. Short Term Goals: Goal Formation?With patient Patient will perform grooming??with stand by assist Patient will perform lower extremity dressing??with stand by assist Patient will transfer to standard toilet??with stand by assist Patient will perform supine to/from sit??with stand by assist Patient will transfer sit to stand??with stand by assist ?? Non Destructive Testing Scientist Goal(s): Patient to discharge to appropriate next level of inpatient care Plan: Patient continues to benefit from skilled therapy services. If patient is discharged from the facility, this note serves as a discharge summary if further occupational therapy visits did not occur. Refer to filed flowsheet for further details. Following therapy session, patient left in patient bedside chair on chair alarm. * Amanda Almeida MSW - 08/20/2022 12:38 PM CDT Tuesday Summary Note Discharge Level of Care: acute rehab Discharge Destination: [facility] Insurance Auth: pending auth Anticipated Mode of Transportation: ambulance Contacts (Name, relationship, phone #): Stacy Sheppard [phone] Anticipated DC Date: TBD Pending Needs: new medical w/u for pneumonia Comments: NIMO Spivey Phone [phone] 08/20/2022 * María Isaac MD - 08/20/2022 10:49 AM CDT Nephrology Progress Note 08/20/2022 10:49 AM Patient Name: Kirsty Rea (81 year old) Room Number: 515/01 Attending: Héctor Silva MD Hospital Day: 5 Subjective: Interval history: - No acute issues or events overnight - Sodium unchanged at 127 following NS infusion overnight - Some subjective SOB overnight although no recorded desat events noted; CXR ordered by primary team, relatively unchanged from prior - Continues to be dependent on straight cath for urination Objective: Patient Vitals for the past 6 hrs: Temp Pulse Resp BP BP Method 08/20/22 0807 97.8 ??F (36.6 ??C) 93 18 144/62 Automatic Intake/Output Summary (Last 24 hours) at 08/20/2022 1049 Last data filed at 08/20/2022 0116 Gross per 24 hour Intake 250 ml Output 750 ml Net -500 ml Physical Exam General: NAD. Sitting up in bed comfortably. HENT: NC/AT Eyes: Anicteric. Non-injected. Chest: CTAB. No crackles or wheezes. No increased work of breathing. Cardiovascular: RRR. No murmurs, rubs, or gallops Abdomen: Soft. NT/ND. Normal BS+. Extremities: No signs of clubbing, cyanosis, or edema. Skin: Warm. Dry. Neurological: AOx3; conversational and follows commands. Moves all extremities spontaneously without issue. No focal deficits. Psych: Appropriate mood and affect Medications SCHEDULED MEDICATIONS: cloNIDine (Catapres) tablet 0.2 mg, Oral, TID epoetin deyanira-EPBX (Retacrit) injection 7,000 Units, Subcutaneous, q7 days heparin injection 5,000 Units, Subcutaneous, TID hydrALAZINE (Apresoline) tablet 50 mg, Oral, TID labetalol (Normodyne; Trandate) tablet 200 mg, Oral, q12h NIFEdipine CR osmotic 24hr (Procardia-XL) tablet 90 mg, Oral, QDAY polyethylene glycol 3350 (Miralax) packet 17 g, Oral, QDAY senna (Senokot) tablet 17.2 mg, Oral, QDAY sevelamer carbonate (Renvela) tablet 800 mg, Oral, TID WC tamsulosin (Flomax) capsule 0.4 mg, Oral, QDAY ?? [COMPLETED] LORazepam (Ativan) tablet 0.5 mg, Oral, Once ?? CONTINUOUS MEDICATIONS: PRN MEDICATIONS: acetaminophen (Tylenol) tablet 500 mg, Oral, q4h PRN ?? albuterol HFA (Proventil; Ventolin; Proair) 108 (90 Base) MCG/ACT inhaler 2 puff, Inhalation, q6h PRN Data Review Recent Labs Component Name 08/20/22 0250 08/19/22 1056 08/18/22 1011 WBC 4.0 4.6 4.2 HGB 7.3* 7.6* 6.2* HCT 21.8* 22.1* 19.3* PLTCOUNT 153 159 160 Recent Labs Component Name 08/20/22 0250 08/15/22 0339 03/09/22 1312 SODIUM - - 140 POTASSIUM 4.1 - 3.9 CHLORIDE - - 109 CO2 16* - 21 BUN 66* - 65* CREATININE 4.57* - 2.74* CALCIUM 8.2* - 8.7 ALBUMIN - - 3.6 ALT - - 12 AST - - 14 GLUCOSE 118* - 99 - = values in this interval not displayed. Recent Labs Component Name 08/20/22 0250 08/19/22 1056 08/18/22 1011 INR 1.0 1.0 1.0 Microbiology: [facility] Imaging: [facility]ed [facility] Assessment and Plan: #Hyponatremia - DDx: Hypovolemia v SIADH (2/2 IPH) v Nephrosis v less likely CHF, liver disease, paraproteinemia - Sodium gradually down-trending while hospitalized; additional urine studies sent on 08/19 - Urine Osm: 288 - Urine Sodium: < 20 - Urine Protein/Creatinine: 1.70 - Urine studies more c/w hypovolemia/nephrosis than SIADH - TSH and triglycerides both normal - Sodium unchanged after ~14 hours of NS at 75cc/hr PLAN: - f/u SPEP/UPEP and immunofixation from 08/19 - sodium bicarb as below #TOÑA on CKD5 #Non-Anion Gap Metabolic Acidosis - Most likely prerenal in setting of vomiting, blood loss, diuretic use prior to presentation; other less likely etiologies include obstruction (does have some retention but urinary habits unchanged from home), infection (trace bacteria but no other signs to suggest) - Baseline Cr around 3.3 since 04/2022; CKD 2/2 HTN - Sees nephrology (Dr. Reyes) as outpatient; recent biopsy due to nephrotic range proteinuria that noted hypertensive nephrosclerosis, no acute findings PLAN: - Continue tamsulosin 0.4mg for urinary retention; if concern for BP stop clonidine - Continue bladder scans q8h to evaluate for urine production and retention; can consider straight cath if > 350cc on scans - If routinely being SC'd, consider Quijano placement - Start sodium bicarb 650mg BID - Avoid nephrotoxic medications and renally dose all medications that are given ? #Hypertension - Home Medications: HCTZ 12.5mg daily, Nifedipine ER 90mg, Labetalol 200mg BID - SBPs have been 130s-150s while here at [facility] PLAN: - Continue labetalol and home nifedipine - Monitor BP response while on clonidine and hydralazine as may not need both of these medications - Avoid diuretic use in setting of TOÑA on CKD ? #Normocytic Anemia - Hgb at presentation initially 8.4 (baseline) but dropped to 7.0 following IVF - Likely has component of anemia of chronic disease 2/2 renal dysfunction - Iron studies ordered this hospitalization: - Iron 77 - TSat 31% - TIBC 248 - Ferritin 180 - Iron studies suggesting mixed picture of iron deficiency and anemia of chronic disease PLAN: - Refused Retacrit 7000U; can consider giving if amenable while inpatient - Consider IV Iron 200mg (can give up to 5 doses over 14 day period; recommend up to 5 days worth or throughout remainder of inpatient stay if shorter than 5 days) - Transfuse for Hgb < 7.0 ? Patient will be seen and discussed with attending physician, Dr. Cintron. María Isaac MD Internal Medicine, PGY-3 08/20/2022 10:49 AM Associated attestation - Peggy Cintron MD - 08/20/2022 5:59 PM CDT Attending Addendum I have seen and examined the patient with the resident today. I agree with the findings and plan ofcare as documented by the resident. In addition I note: 81 yo female with advanced chronic kidney disease due to hypertensive nephrosclerosis per kidney biopsy (based on Dr. Reyes's note) and other medical problems as per resident's note,was transferredfrom OSH for further management of ICH. Report of recent nausea and vomiting, and took HCTZ at home. She is sitting in a chair, alert, and appears comfortable, CV - absent rub, and ext - trace edema.Urine volume 750mL [id number] kidney disease in the setting of recent ICH, likely a prerenal component and anemia might have contributed. S/p blood transfusion and receiving erythropoietin. Hyponatremia in the setting of recent poor oral intake and a trial of IV fluid is reasonable. There is also concern for SIADH, recommend free water restriction (1L/24 hours), and monitor serum sodium every 8-12 hours. Please see resident's note for further details * Ree Rodrigues - 08/20/2022 6:46 AM CDT Images from the original note were not included. [facility] INTERNAL MEDICINE PROGRESS NOTE Patient: Kirsty Rea Sex: female Age: [age] year old Date of : 1940 Date of Admission: 08/15/2022 Date: 08/20/2022 LOS: 5 SUBJECTIVE Interval History: Shortness of breath overnight with intermittent oxygen use CXR with RLL consolidation and LLL effusion c/f pneumonia vs atelectasis. procalcitonin 0.1 Trop .124 downtrended to .113 Mild headache overnight, resolved with tylenol Continue Q4 neuro checks Continues to have urinary retention requiring straight cath Hospital Course: Patient is a??81 year old??white??female??with a PMH of HTN and CKD5 (baseline Cr ~3.3), morphea who presented??to OSH??on 08/15/22??with??generalized weakness and nausea/vomiting,??transfered to 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 Stay has beencomplicated by hypertenstion 150s-170s/60s-77s requiring IV antihypertensives. ?? In AM of 08/15 developed diffuse, generalized weakness in addition to N/V. Vomited numerous times although cannot endorse a specific number of episodes or how many hours this bothered her for. Presented to OSH who obtained CTH noting??pontine IPH measuring 9*8*10 mm without mass effect or hydrocepha patrick??and was transferred for further evaluation. On arrival VSS and wnl. Lab work-up notable for Hgb 8.4 (at baseline), Cr 3.74; repeat labs the following day notable for Hgb 7.0, Cr 4.27. OBJECTIVE Vital Signs: Vitals: 08/19/22 1958 08/19/22 2030 08/20/22 0010 08/20/22 0405 BP: 126/82 142/67 137/51 134/62 Pulse: 57 58 69 66 Resp: 18 18 20 18 Temp: 97.4 ??F (36.3 ??C) 97.1 ??F (36.2 ??C) 97.3 ??F (36.3 ??C) 97.5 ??F (36.4 ??C) SpO2: 96% 95% 98% 96% Weight: Height: Temp Min: 97.1 ??F (36.2 ??C) Max: 98.8 ??F (37.1 ??C), Pulse Min: 53 Max: 91, Resp Min: 7 Max: 29, BP Min: 101/52 Max: 178/90 Intake & Output: In: 902 [P.O.:550] Out: 900 [Urine:900] Physical Exam: General: Alert and oriented to person, place, time and situation, no acute distress Neck: No JVD or cartoid bruit. Trachea midline. Heart: RRR, Normal S1 and S2. No murmurs appreciated. Chest: decreased breath sounds in RLL, dullness to percussion on LLL, dyspneic on conversation Abdomen: Soft, non-tender, non-distended, bowel sounds present Extremities: 1+ lower extremity edema, 2+ distal peripheral pulses Neuro: No focal deficits noted Intake/Output Summary (Last 24 hours) at 08/20/2022 0646 Last data filed at 08/20/2022 0116 Gross per 24 hour Intake 550 ml Output 750 ml Net -200 ml Current Medications: Scheduled: ??? cloNIDine 0.2 mg Oral TID ??? epoetin Deyanira-EPBX (Retacrit) injection 7,000 Units Subcutaneous q7 days ??? heparin 5,000 Units Subcutaneous TID ??? hydrALAZINE 50 mg Oral TID ??? labetalol 200 mg Oral q12h ??? NIFEdipine CR osmotic 24hr 90 mg Oral QDAY ??? polyethylene glycol 3350 17 g Oral QDAY ??? senna 17.2 mg Oral QDAY ??? tamsulosin 0.4 mg Oral QDAY Continuous: 0.9% NaCl IV, , Last Rate: 75 mL/hr at 08/19/22 1703 PRN: ??? acetaminophen Significant Lab Results: Lab Results-Last 24 Hours Procedure Component Value Units Date/Time OSMOLALITY BLOOD [[id number]] (Normal) Collected: 08/20/22249 Order Status: Completed Specimen: Blood Updated: 08/20/22410 Osmolality 289 mOsm/kg TSH REFLEX FREE T4 [[id number]] (Normal) Collected: 08/20/22249 Order Status: Completed Specimen: Blood Updated: 08/20/22347 TSH 4.654 uIU/mL PHOSPHORUS BLOOD [[id number]] (Abnormal) Collected: 08/20/22249 Order Status: Completed Specimen: Blood Updated: 08/20/22332 Phosphorus 6.1 mg/dL TRIGLYCERIDES BLOOD [[id number]] (Normal) Collected: 08/20/22249 Order Status: Completed Specimen: Blood Updated: 08/20/22332 Triglycerides 64 mg/dL Comment: ATP III Classification of Triglycerides: <150 mg/dL: Normal 150 - 199 mg/dL: Borderline High 200 - 400 mg/dL: High >500 mg/dL: Very High BASIC METABOLIC PANEL (CALCIUM TOTAL) [[id number]] (Abnormal) Collected: 08/20/22249 Order Status: Completed Specimen: Blood Updated: 08/20/22332 BUN 66 mg/dL Creatinine 4.57 mg/dL Sodium 127 mmol/L Potassium 4.1 mmol/L Chloride 98 mmol/L CO2 16 mmol/L Glucose 118 mg/dL Calcium 8.2 mg/dL Anion Gap 17 BUN/Creatinine Ratio 14 Osmolality Calculated 284 mOsm/kg eGFR by CKD-EPI 9 mL/min/1.73 m2 MAGNESIUM BLOOD [[id number]] (Normal) Collected: 08/20/22249 Order Status: Completed Specimen: Blood Updated: 08/20/22332 Magnesium 2.0 mg/dL PT-INR [facility] [[id number]] (Normal) Collected: 08/20/22249 Order Status: Completed Specimen: Blood Updated: 08/20/22325 PT 13.3 Seconds INR 1.0 Comment: The suggested therapeutic range for standard coumadin (warfarin) therapy is an INR of 2.0-3.0. For high-risk patients (Mechanical Mitral Valve Prosthesis, etc.), the suggested prophylactic therapeutic range is an INR of 2.5-3.5. CBC W/O DIFFERENTIAL [[id number]] (Abnormal) Collected: 10/21/22 0250 Order Status: Completed Specimen: Blood Updated: 08/20/22 0313 WBC 4.0 10??3/uL RBC 2.61 10??6/uL Hemoglobin 7.3 g/dL Hematocrit 21.8 % MCV 83.5 fL MCH 28.0 pg MCHC 33.5 g/dL Platelet Count 153 10??3/uL RDW-SD 41.1 fL RDW-CV 13.4 % MPV 9.7 fL nRBC Absolute 0.00 10??3/uL nRBC Auto 0.0 /100 WBC URINALYSIS W/MICROSCOPIC NO CULTURE [[id number]] Order Status: Sent Specimen: Urine Cath Straight UREA NITROGEN URINE RANDOM [[id number]] Order Status: Sent Specimen: Urine Random SODIUM URINE RANDOM [[id number]] Order Status: Sent Specimen: Urine Random LYTES (NA K CL) URINE RANDOM PANEL [[id number]] Order Status: Sent Specimen: Urine Random CREATININE URINE RANDOM [[id number]] Order Status: Sent Specimen: Urine Random BASIC METABOLIC PANEL (CALCIUM TOTAL) [[id number]] (Abnormal) Collected: 08/19/22 2100 Order Status: Completed Specimen: Blood Updated: 08/19/220 BUN 71 mg/dL Creatinine 4.59 mg/dL Sodium 127 mmol/L Potassium 4.1 mmol/L Chloride 98 mmol/L CO2 16 mmol/L Glucose 131 mg/dL Calcium 8.4 mg/dL Anion Gap 17 BUN/Creatinine Ratio 15 Osmolality Calculated 287 mOsm/kg eGFR by CKD-EPI 9 mL/min/1.73 m2 OSMOLALITY URINE [[id number]] (Normal) Collected: 08/19/22 1300 Order Status: Completed Specimen: Urine Random Updated: 08/19/22 1411 Osmolality Urine 288 mOsm/kg SODIUM URINE RANDOM [[id number]] Collected: 08/19/22 1300 Order Status: Completed Specimen: Urine Random Updated: 08/19/22 1341 Sodium Urine <20 mmol/L PROTEIN CREATININE RATIO URINE RANDOM PNL [[id number]] (Abnormal) Collected: 08/19/22 1300 Order Status: Completed Specimen: Urine Random Updated: 08/19/22 1341 Protein Urine 163 mg/dL Creatinine Urine 96 mg/dL Protein/Creatinine Ratio Urine 1.70 URINALYSIS REFLEX TO MICROSCOPIC NO CULTURE [[id number]] (Abnormal) Collected: 08/19/22 1300 Order Status: Completed Specimen: Urine Clean Catch Updated: 08/19/22 1314 Color UA Yellow Clarity UA Slt Cloudy Specific Floris UA 1.011 pH UA 5.0 pH Protein UA 2+ Glucose UA Negative Ketone UA Negative Bilirubin UA Negative Blood UA Negative Nitrite UA Negative Leukocyte Esterase 2+ Urobilinogen UA Negative mg/dL Narrative: PROTEIN ELECTROPHORESIS URINE TIMED [[id number]] Collected: 08/19/22 1300 Order Status: Resulted Specimen: Urine Timed Updated: 08/19/22 1304 PHOSPHORUS BLOOD [[id number]] (Abnormal) Collected: 08/19/22 105 Order Status: Completed Specimen: Blood Updated: 08/19/22 1143 Phosphorus 5.7 mg/dL BASIC METABOLIC PANEL (CALCIUM TOTAL) [[id number]] (Abnormal) Collected: 08/19/22 1056 Order Status: Completed Specimen: Blood Updated: 08/19/22 1143 BUN 66 mg/dL Creatinine 4.65 mg/dL Sodium 127 mmol/L Potassium 4.0 mmol/L Chloride 99 mmol/L CO2 17 mmol/L Glucose 100 mg/dL Calcium 8.6 mg/dL Anion Gap 15 BUN/Creatinine Ratio 14 Osmolality Calculated 283 mOsm/kg eGFR by CKD-EPI 9 mL/min/1.73 m2 MAGNESIUM BLOOD [[id number]] (Normal) Collected: 08/19/22 105 Order Status: Completed Specimen: Blood Updated: 08/19/22 1143 Magnesium 2.1 mg/dL CBC W/O DIFFERENTIAL [[id number]] (Abnormal) Collected: 08/19/22 1056 Order Status: Completed Specimen: Blood Updated: 08/19/22 1135 WBC 4.6 10??3/uL RBC 2.65 10??6/uL Hemoglobin 7.6 g/dL Hematocrit 22.1 % MCV 83.4 fL MCH 28.7 pg MCHC 34.4 g/dL Platelet Count 159 10??3/uL RDW-SD 40.7 fL RDW-CV 13.5 % MPV 9.5 fL nRBC Absolute 0.00 10??3/uL nRBC Auto 0.0 /100 WBC PT-INR [facility] [[id number]] (Normal) Collected: 08/19/22 1056 Order Status: Completed Specimen: Blood Updated: 08/19/22 1131 PT 13.1 Seconds INR 1.0 Comment: The suggested therapeutic range for standard coumadin (warfarin) therapy is an INR of 2.0-3.0. For high-risk patients (Mechanical Mitral Valve Prosthesis, etc.), the suggested prophylactic therapeutic range is an INR of 2.5-3.5. PROTEIN ELECTROPHORESIS BLOOD [[id number]] Collected: 08/19/22 105 Order Status: Sent Specimen: Blood Updated: 08/19/221101 IMMUNOFIXATION BLOOD [[id number]] Collected: 08/19/221055 Order Status: Sent Specimen: Blood Updated: 08/19/221101 ASSESSMENT & PLAN Kirsty Rea??is a 81 year old??female??w/PMH significant for CKD5 (baseline Cr ~3.3), HTN, morphea, Pontine hemorrhagic stroke s/p stabilization admitted for hyponatremia workup and medical stabilization prior to placement. ?? #hyponatremia -ddx: pre renal etiology c/f SIADH, hypovolemia, contrast induced, hx of nephrotic range proteinuria, CKD stage 5. - patient with with down trending sodium Na 127> 127> 132 > 134 > 139 (3 days ago) - asymptomatic with no N/V/headache/confusion. - endorses fatigue due to not sleeping as much the past couple of nights - Ca/Mag/phos: 8.6/2.1/5.7 - TSH 4.65, Triglycerides 64 - urine studies sent ?- Urine Osm: 288 ?- Urine Sodium: <??20 ?- Urine Protein/Creatinine: 1.70 Plan: - continues to be hyponatremic at 127 - free water restriction - NaCl infusion at 100 ml/hr ??If <??124 can increase rate to 125mL/hr ?- If >??134 discontinue ?- If in-between, can continue at current rate #SOB #intermittent oxygen use #chest pressure -ddx: VA, pneumonia, atelectasis,volume overload, PTX, aortic dissection, esophageal spasms - patient with intermittent O2 use with NC, on room air this morning - no oxygen requirement at home - less likely volume overload as volume resuscitation at low rate, no JVD. - CXR With RLL consolidation c/f infection vs atelectasis - EKG sinus bradycardia with first degree AV block -Trop .124 downtrended to .113 - does not meet sepsis criteria, currently stable - procal 0.1 Plan: - swallow eval with speech therapy - IS to bedside with confirmed usage throughout the day - PT/OT to encourage mobility and increase aeration - watch for VS changes #pontine hemorrhagic stroke - no additional stroke w/u pending - Continue Q??4??neurochecks; NIHSS Q daily - NSGY??signed off - BP Goal:??SBP 130-150 -??Swallow Evaluation:??within normal limits -??PT/OT Evaluation:??recommended acute rehab (3hrs per day) ?-Patient's family prefers SNF? -??DVT prophylaxis:??started hepatin 5000u tid 08/17 - continue Q4 neuro checks, followup scheduled in chart, recommend SNF #HTN -??Home Medications: HCTZ 12.5mg daily, Nifedipine ER 90mg, Labetalol 200mg BID - SBPs have been 130s-150s while here at [facility] -Goal SBP 130-150 -currently on labetalol??200mg bid, nifedipine 90mg bid. hydralazine 50mg tid -hydralazine 10mg IV PRN, labetalol 10mg IV PRN ?? #TOÑA on CKD5 #non-gap metabolic acidosis - Most likely prerenal in setting of vomiting, blood loss, diuretic use prior to presentation; other less likely etiologies include obstruction (does have some retention but urinary habits unchanged from home), infection (trace bacteria but no other signs to suggest) - Baseline Cr around 3.3 since 04/2022; CKD 2/2 HTN - Sees nephrology (Dr. Reyes) as outpatient; recent biopsy due to nephrotic range proteinuria that noted hypertensive nephrosclerosis, no acute findings - FENa 0.4% c/f prerenal etiology - Urine Protein/Creatinine: 1.70 - no spontaneous urination per patient PLAN: - Start sodium bicarb 650mg BID - Bladder Scans q8h to evaluate for retention, if >350cc straight cath - f/u SPEP/UPEP and immunofixation - Avoid nephrotoxic medications and renally dose all medications that are given #urinary retention - patient with new onset urinary retention on admission - likely 2/2 clonidine use and inpatient hospitilization - exacrbated by clonidine use > consider d/c if BP within goal - Continue bladder scans q8h to evaluate for urine production and retention; can consider straight cath if > 350cc on scans - If routinely being SC'd, consider Quijano placement - increase flomax to .8 #Normocytic anemia -??Hgb at presentation initially 8.4 (baseline) but dropped to 7.0 following IVF - Likely has component of anemia of chronic disease 2/2 renal dysfunction - Iron studies ordered while inpatient ??w/normal iron, although no ferritin -??Type and cross and 1unit pRBCs 08/18/22 for Hb of 6.2 - Iron studies ordered this hospitalization: - Iron 77 - TSat 31% - TIBC 248 - Ferritin 180 PLAN: - Refused Retacrit 7000U - defer IV Iron due to increased risk > repeat iron studies with PCP in 3 months - CTM Hgb, Transfuse for Hgb < 7.0 ?? #hx of intracardiac shunt -CTM Code: full Diet: renal Electrolytes: Replete PRN PPx: heparin Access: PIV Dispo: SNF ?? The above assessment and plan will be discussed with the attending. This note is not final until attested by attending physician. ?? Ree Rodrigues Internal Medicine [facility] 08/20/2022 6:46 AM Associated attestation - Heraclio Cabrera MD - 08/20/2022 5:29 PM CDT I have verified the documentation of the student including all history, exam, and medical decision-making details. I have personally performed a physical exam and have personally reviewed the data tosupport my medical decision-making as outlined in their note. I agree with their assessment and plan other than any corrections/additions as documented below. Corrections/Additions: Subjective: Overnight no significant events. On exam today patient alert/calm. Did endorse some mild vague chest discomfort that she states is chronic in nature. Otherwise no new conerns noted. Objective: Physical Exam: BP 122/52 Pulse 67 Temp 97.8 ??F (36.6 ??C) (Oral) Resp 18 Ht 1.727 m (5' 8 ) Wt 75.5 kg (166 lb 6.4 oz) SpO2 96% GEN: Alert elderly female lying in bed in NAD HEENT: NCAT, MMM, Oropharynx clear. Neck: Supple with full ROM, No JVD RESP: Clear to auscultation bilaterally CARDIO: Regular rate and rhythm, No murmurs/rubs/gallops GI: Abdomen soft and non tender, non-distended, +BS EXT: Trace to 1+ edema in LLE, Trace edema in RLE. SKIN: warm and dry, no rashes/wounds/sores appreciated. NEURO: Alert and oriented to person, place, time and situation. No focal deficits Labs Reviewed Assessment & Plan: Hyponatremia, Likely Dehydration Related and TOÑA on CKD - Continue Hydration, increase NS to 100cc/hr HTN and Spontaneous Intracranial bleed - Continue Labetalol, Nifedipine, Hydralazine and Clonidine Date of Service: 08/20/2022 Heraclio Cabrera MD * Yazmin Evangelista RN - 08/19/2022 8:33 PM CDT Problem: Fall Risk Goal: Fall risk and fall related injury risk are minimized (interventions related to the fall risk can be found in the flowsheet documentation) Outcome: Progressing Problem: Neurological Deficit Goal: Neurological status is stable or improving Outcome: Progressing Problem: Hemodynamic Status/Cardiac Output Goal: Patient has stable vital signs and fluid balance Outcome: Progressing Problem: Oxygenation/Respiratory Function Goal: Respiratory rate/effort will be within specified limits Outcome: Progressing Problem: Mobility Goal: Patient's mobility/activity will be maintained as optimum level for age, diagnosis and physical limitations Outcome: Progressing * María Isaac MD - 08/19/2022 2:53 PM CDT Nephrology Progress Note 08/19/2022 3:05 PM Patient Name: Kirsty Rea (81 year old) Room Number: 515/01 Attending: Héctor Silva MD Hospital Day: 4 Subjective: Interval history: - No acute issues or events overnight - SC of 600 yesterday; BS this AM noting 342 as well, no spontaneous urination - Strength continues to be at adequate level per patient - Sodium continues to decrease; additional urine studies sent for evaluation Objective: Patient Vitals for the past 6 hrs: Temp Pulse Resp BP BP Method 08/19/22 1257 97.4 ??F (36.3 ??C) 64 18 118/52 Automatic Intake/Output Summary (Last 24 hours) at 08/19/2022 1505 Last data filed at 08/19/2022 1300 Gross per 24 hour Intake 902 ml Output 300 ml Net 602 ml Physical Exam General: NAD. Sitting upright in chair without issue. HENT: NC/AT Eyes: Anicteric. Non-injected. Chest: CTAB. No crackles or wheezes. No increased work of breathing. Cardiovascular: RRR. No murmurs, rubs, or gallops Abdomen: Soft. NT/ND. Normal BS+. Extremities: No signs of clubbing, cyanosis, or edema. Skin: Warm. Dry. Neurological: AOx3; conversational and follows commands. Moves all extremities spontaneously without issue. No focal deficits. Psych: Appropriate mood and affect Medications SCHEDULED MEDICATIONS: cloNIDine (Catapres) tablet 0.2 mg, Oral, TID epoetin deyanira-EPBX (Retacrit) injection 7,000 Units, Subcutaneous, q7 days heparin injection 5,000 Units, Subcutaneous, TID hydrALAZINE (Apresoline) tablet 50 mg, Oral, TID labetalol (Normodyne; Trandate) tablet 200 mg, Oral, q12h NIFEdipine CR osmotic 24hr (Procardia-XL) tablet 90 mg, Oral, QDAY polyethylene glycol 3350 (Miralax) packet 17 g, Oral, QDAY ?? senna (Senokot) tablet 17.2 mg, Oral, QDAY ?? CONTINUOUS MEDICATIONS: ?? PRN MEDICATIONS: Data Review Recent Labs Component Name 08/19/22 1056 08/18/22 1011 08/17/22 0426 WBC 4.6 4.2 6.3 HGB 7.6* 6.2* 7.1* HCT 22.1* 19.3* 20.8* PLTCOUNT 159 160 197 Recent Labs Component Name 08/19/22 1056 08/15/22 0339 03/09/22 1312 SODIUM - - 140 POTASSIUM 4.0 - 3.9 CHLORIDE - - 109 CO2 17* - 21 BUN 66* - 65* CREATININE 4.65* - 2.74* CALCIUM 8.6 - 8.7 ALBUMIN - - 3.6 ALT - - 12 AST - - 14 GLUCOSE 100 - 99 - = values in this interval not displayed. Recent Labs Component Name 08/19/22 1056 08/18/22 1011 08/17/22 0420 INR 1.0 1.0 1.0 Microbiology: [facility] Imaging: [facility]ed in [facility] Assessment and Plan: #TOÑA on CKD5 #Hyponatremia #Non-Anion Gap Metabolic Acidosis - Most likely prerenal in setting of vomiting, blood loss, diuretic use prior to presentation; other less likely etiologies include obstruction (does have some retention but urinary habits unchanged from home), infection (trace bacteria but no other signs to suggest) - Baseline Cr around 3.3 since 04/2022; CKD 2/2 HTN - Sees nephrology (Dr. Reyes) as outpatient; recent biopsy due to nephrotic range proteinuria that noted hypertensive nephrosclerosis, no acute findings - Has elevated urine potassium; may be contributing to hypokalemia while in patient - Unclear if 2/2 diuretic use prior to presentation or other etiology - Sodium gradually down-trending while hospitalized; additional urine studies sent - Urine Osm: 288 - Urine Sodium: < 20 - Urine Protein/Creatinine: 1.70 PLAN: - Please obtain TSH, triglyceride - Please start NS at 75 mL/hr and recheck BMP 6 hours after starting - If < 124 can increase rate to 125mL/hr - If > 134 discontinue - If in-between, can continue at current rate - Will f/u SPEP/UPEP and immunofixation - Consider tamsulosin 0.4mg for urinary retention; if concern for BP stop clonidine - Continue bladder scans q8h to evaluate for urine production and retention; can consider straight cath if > 350cc on scans - Avoid nephrotoxic medications and renally dose all medications that are given ? #Hypertension - Home Medications: HCTZ 12.5mg daily, Nifedipine ER 90mg, Labetalol 200mg BID - SBPs have been 130s-150s while here at [facility] PLAN: - Continue labetalol and home nifedipine - Monitor BP response while on clonidine and hydralazine as may not need both of these medications - Avoid diuretic use in setting of TOÑA on CKD ? #Normocytic Anemia - Hgb at presentation initially 8.4 (baseline) but dropped to 7.0 following IVF - Likely has component of anemia of chronic disease 2/2 renal dysfunction - Iron studies ordered this hospitalization: - Iron 77 - TSat 31% - TIBC 248 - Ferritin 180 - Iron studies suggesting mixed picture of iron deficiency and anemia of chronic disease PLAN: - Has Epo 7000U ordered; initially refused, counseled on benefits, would attempt to give - Consider IV Iron 200mg (can give up to 5 doses over 14 day period; recommend up to 5 days worth or throughout remainder of inpatient stay if shorter than 5 days) - Transfuse for Hgb < 7.0 ? Patient will be seen and discussed with attending physician, Dr. Cintron. María Isaac MD Internal Medicine, PGY-3 08/19/2022 3:05 PM Associated attestation - Peggy Cintron MD - 08/19/2022 3:54 PM CDT Attending Addendum I have seen and examined the patient with the resident today. I agree with the findings and plan ofcare as documented by the resident. In addition I note: 81 yo female with advanced chronic kidney disease due to hypertensive nephrosclerosis per kidney biopsy (based on Dr. Reyes's note) and other medical problems as per resident's note,was transferredfrom OSH for further management of ICH. Report of recent nausea and vomiting, and took HCTZ at home. She is sleeping and appears comfortable, CV - absent rub, and ext - trace edema. Urine volume 600mL Tnaxf-fi-gaiomyg kidney disease in the setting of recent ICH, likely a prerenal component and anemia might be contributing. Agree with blood transfusion and erythropoietin administration. Hyponatremia and concern for possible SIADH, agree with urine studies, free water restriction, and recommend checking TSH level. Hypokalemia has resolved. Please see resident (Dr. Isaac)'s note for further details * Aroldo Rivera, CLIMATOLOGY TEACHER-BOX SHOOK PATCHER - 08/19/2022 2:03 PM CDT NEUROLOGY PROGRESS NOTE 08/19/2022 at 2:04 PM Admission Date:?08/15/2022 ?? HISTORY: History of Present Illness: 81 y/o F with past medical history of HTN, CKD3, Morphea and osteopenia transferred from [facility] to [facility] ICU for pontine intraparenchymal hemorrhage. Patient reported developing generalized weakness and nausa/vomiting. She had several episodes of vomiting but denies ALDANA,CP, speech changes, ??vision or sensory changes. Reports photosensitivity. 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 Admitted to Neuro ICU for further monitoring ICU Timeline: 08/15: NAEON. BP 120-140 on nicardipine gtt. Will not start oral BP meds until know cardiac function as on odd home med regimen. No new complaints.?? 08/16: nephrology team consulted, started on home labetalol 200mg BID, started Senna+miralax Interval History: No acute events overnight. Pateint continues to have elevated creatinine and electrolyte imbalance. OBJECTIVE: PHYSICAL EXAM Temp: [97.2 ??F (36.2 ??C)-97.9 ??F (36.6 ??C)] 97.4 ??F (36.3 ??C) Pulse: [62-88] 64 Resp: [16-18] 18 BP: (101-145)/(49-66) 118/52 Neurological Exam: Cortical Function MS:?Awake, Alert; Oriented to Person, Place, Time, Situation ?Follows commands Language:?Fluency, Comprehension, Repetition, all intact VF:?Intact to confrontation Neglect:?No visual neglect, No tactile neglect Cranial Nerves Pupils??3??mm and BRTL; EOMI; No Ptosis; No Nystagmus Facial sensation intact BL (forehead, infraorbital, jaw) Facial movements intact (upper and lower) Hearing intact to finger rub BL ?? Motor Abnormal Movement:?None Bulk:?Normal Tone:?Normal Strength:?Appro priate for age ?RUE ?5/5?LUE ?5/5 ?RLE ?5/5?LLE ?5/5 DTR:?Bi?Tri?BR?Pat?Ach?Toes?R?2+?2+?2+?2+?2+?Down ?L?2+?2+?2+?2+?2+?Down Sensory Intact to Light Touch, Pin Prick, Temperature, Vibration BL throughout ?? Gait and Balance Deferred ?? Imaging studies reviewed?? MRI/A:??1.Redemonstration of small right pontine hemorrhage with mild surrounding vasogenic edema. No significant mass effect. No supratentorial hydrocephalus. 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 3.Otherwise, no large arterial occlusions or significant stenoses identified in the head.? TTE:??There is severe concentric left ventricular hypertrophy. The left ventricle is normal size. Left ventricular segmental wall motion is normal. Left ventricular systolic function is hyperdynamic with an ejection fraction by Biplane Method of Discs of 78 %. The left ventricular diastolic function is abnormal (Grade I), consistent with low normal left ventricle filling pressures. The right ventricular cavity size is normal. Normal right ventricular systolic function. Mild pulmonary hypertension, estimated pulmonary arterial systolic pressure is 48 mmHg. The left atrium is mildly enlarged. Injection of agitated saline was positive for intracardiac shunt. ASSESSMENT AND PLAN: 81 y/o F w/ PMH of??HTN??and??CKD3, Morphea and osteopenia transferred from [facility] to [facility] Neuro ICU for pontine intraparenchymal hemorrhage. ?? Stroke Type:??. Hemorrhagic Stroke Mechanism :??Hypertension??v vascular abnormality? - Continue Q??4??neurochecks; NIHSS Q daily - Stat CT head for any change in neurological examination - NSGY following - Head of bed > 30?? - Avoid hypoglycemia, hyponatremia, and hyperthermia - Sodium goals:??normal range - BP Goal: less than??160?? - Continue diet per ST; PT/OT? #??HTN - Continue Nifedipine ER 90 mg qday - Continue labetalol 200mg BID - Continue Hydralazine 50mg TID - Continue Clonidine 0.2mg TID ?? # TOÑA on CKD # CKD 3 - Cr??3.3??on 04/2022 - Cr 3.4 on admission?? - Nephrology consult, recs appreciated?? - Bladder scans Q8 and straight cath orders if >350 - SPEP/UPEP and immunofixation - Monitor intake and output - Replete electrolytes as needed ?? #Normocytic??Anemia?-??Hgb at presentation initially 8.4 (baseline) but dropped to 7.0 following IVF; 6.2 - > 7.6 - Received 1 unit PRBC - Hgb increased to 7.6 post - Likely has component of anemia of chronic disease 2/2 renal dysfunction - Nephrology following and recs appreciated - Epo 7000U ordered - patient continues to refuse. - Transfuse for Hgb < 7.0 ?? Case findings discussed with ??Harlan,??Stroke??Fellow. Aroldo Rivera APRN-BOX SHOOK PATCHER 08/19/2022 2:04 PM * Héctor Silva MD - 08/19/2022 12:24 PM CDT Images from the original note were not included. I have seen and examined the patient. I spent 25 minutes all together, over 50% of which was spent on counseling and/or care coordination. Date of Service: 08/19/2022 This is a time-based encounter; independent of trainees or APPs. Héctor Silva MD Interval History:Kirsty Rea is a 81 year oldF who developed sudden on nausea and vomiting on 08/15. 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 Transferred to [facility] for further management. MRdoes not reveal underlying pathology. Nephrology for TOÑA on CKD - somewhat worse today. Will request transfer to medical service. ?? Physical Exam: Alert and Oriented, Nl Language, No Neglect EOMI, PERRL, Facial Expression Symmetric, VFF Motor: 5/5 and Symmetric Sensation: Symmetric to LT ?? Plan: Further Testing: As needed to evaluate neurological changes Secondary Prevention: SBP goal 130 to 150 Recovery: TBD LOS 4 Multidisciplinary rounds were held at 930am and the patient's care and recovery plan were reviewed and developed with the assembled team. MEDICATIONS FOR CURRENT ENCOUNTER: SCHEDULED MEDICATIONS: cloNIDine (Catapres) tablet 0.2 mg, Oral, TID epoetin deyanira-EPBX (Retacrit) injection 7,000 Units, Subcutaneous, q7 days heparin injection 5,000 Units, Subcutaneous, TID hydrALAZINE (Apresoline) tablet 50 mg, Oral, TID labetalol (Normodyne; Trandate) tablet 200 mg, Oral, q12h NIFEdipine CR osmotic 24hr (Procardia-XL) tablet 90 mg, Oral, QDAY polyethylene glycol 3350 (Miralax) packet 17 g, Oral, QDAY ?? senna (Senokot) tablet 17.2 mg, Oral, QDAY ?? CONTINUOUS MEDICATIONS: PRN MEDICATIONS: ?? 0.9% NaCl infusion rate and volume, Intravenous, Once PRN Patient Vitals for the past 24 hrs: Temp Pulse Resp BP 08/19/22 0755 97.7 ??F (36.5 ??C) 62 18 145/66 08/19/22 0359 97.5 ??F (36.4 ??C) 66 -- 127/59 08/19/22 0236 97.2 ??F (36.2 ??C) 63 16 132/61 08/19/22 0017 97.8 ??F (36.6 ??C) 62 -- 101/52 08/18/22 2308 97.8 ??F (36.6 ??C) 62 16 123/62 08/18/22 2246 97.7 ??F (36.5 ??C) 88 16 125/53 08/18/229 -- 65 -- 129/56 08/18/22 2005 97.8 ??F (36.6 ??C) 62 -- 118/50 08/18/22 1609 97.9 ??F (36.6 ??C) 64 18 114/49 Recent Labs Component Name 08/19/22 1056 08/18/22 1011 08/17/22 0405 NA 127* 132* 134* CL 99 102 105 CO2 17* 19* 16* BUN 66* 63* 58* CREATININE 4.65* 4.42* 4.22* CALCIUM 8.6 8.3* 8.7 PHOS 5.7* 5.3* 4.4 Recent Labs Component Name 08/19/22 1056 08/18/22 1011 08/17/22 0426 WBC 4.6 4.2 6.3 RBC 2.65* 2.25* 2.57* HGB 7.6* 6.2* 7.1* HCT 22.1* 19.3* 20.8* No results for input(s): CHOL, TRIG, HDL, VLDL, LDL, LDLCALC, LDLDIRECT, CHOLHDL in the last 97636 hours. Recent Labs Component Name 08/16/22 0044 HGBA1C 5.4 EAG 108 Recent Labs Component Name 08/19/22 1056 08/18/22 1011 08/17/22 0426 PLTCOUNT 159 160 197 * Argenis Saunders COTA - 08/19/2022 9:57 AM CDT [facility] Occupational Therapy Progress Note Patient: Kirsty Rea [facility] Record Number: [id number] Date of : 1940 Age: [age] year old PPE worn by staff: gloves;mask - procedural PPE worn by patient: gown - patient, clean;mask - procedural Tech: n/a Discharge Recommendation: Patient will benefit from intense 3 hour per day multidisciplinary inpatient therapies due to decreased endurance with simple ADLs. PRECAUTIONS: Weight Bearing Status: (WBAT) SUBJECTIVE: Subjective: Pt agreeable. Pain Assessment: Pain Rating Score #: 0 Follow-up for pain: No follow-up for pain indicated and patient agreed to proceed with treatment OBJECTIVE: At start of therapy session, patient found seated in w/c in PMR gym at end of PT session. General Appearance: pt in NAD LDA: IV's: Peripheral line Vitals: SPO2 97% on Room Air ; HR 64. Mental Status/Cognition: Level of Consciousness-Adult: Alert Orientation Level: Oriented X4 Cognition: Follows Commands-Consistent Attention Span: Appears intact Memory: Decreased short term memory Following Commands: Follows one step commands with increased time Safety Judgement: Decreased awareness of need for safety Awareness of Errors: Assistance required to identify errors made;Assistance required to correct errors made Problem Solving: Assistance required to generate solutions;Assistance required to implement solutions Mobility: a gait belt and non-slip socks were used for all out of bed activity this date. Transfers: Sit to Stand: Minimal Assistance;Requires Verbal Cues for Technique;Requires Physical Cues for Technique Stand to Sit: Minimal Assistance;Requires Verbal Cues for Technique;Requires Physical Cues for Technique Type of Transfer: (Ambulation) Transfer Device: Gait belt;Walker-2 Wheeled Functional Ambulation: Functional mobility of ambulation to sink/bathroom with Minimal assist using ww. Balance: Balance Scales/Tests Used: Sitting: Static/Dynamic;Standing: Static/Dynamic Sitting - Static: Good Sitting - Dynamic: Good - Standing - Static: Fair;With Both Upper Extremity's Support Standing - Dynamic: Fair;With Both Upper Extremity's Support Activities of Daily Living: Pt declined grooming tasks at sink. Lower Body Dressing: Moderate Assistance (with adult brief; Moderate assist to don pants over feet without AE; pt declined use of AE.) ACTIVITY TOLERANCE: Patient's activity tolerance: fair. Modified Elizabeth: Current Modified [place] Score: 4 TREATMENT/INTERVENTIONS: ADL training Functional transfer training Safety awareness EDUCATION: While performing OT, Patient was instructed in:functional mobility training, self-care training, safety awareness/fall precautions , pursed lip breathing techniques Presented to patient who demonstrates Fair understanding of instructions given. INFORMED CONSENT TO TREATMENT: Plan of care including recommended therapy, goals and frequency, discussed with patient who understands and agrees to proceed. ASSESSMENT: Patient continues to benefit from skilled Occupational Therapy to achieve the following functional goals. Short Term Goals: Goal Formation With patient Patient will perform grooming with stand by assist Patient will perform lower extremity dressing with stand by assist Patient will transfer to standard toilet with stand by assist Patient will perform supine to/from sit with stand by assist Patient will transfer sit to stand with stand by assist Intermediate Goal(s): Patient to discharge to appropriate next level of inpatient care Plan: Patient continues to benefit from skilled therapy services., Continue with goals as established. If patient is discharged from the facility, this note serves as a discharge summary if further occupational therapy visits did not occur. Refer to filed flowsheet for further details. Following therapy session, patient left seated in w/c with PMR tech taking patient back to her room.. * Nadya Camara PTA - 08/19/2022 9:30 AM CDT [facility] Physical Therapy Progress Note Patient: Kirsty Rea [facility] Record Number: [id number] Date of : 1940 Age: [age] year old PPE worn by staff: gloves;mask - procedural;eye protection PPE worn by patient: gown - patient, clean;socks - clean;mask - procedural Discharge Recommendation: Patient will benefit from intense 3 hour per day multidisciplinary inpatient therapies due to decreased independence with functional mobility. SUBJECTIVE: Subjective: I feel good today . Pain Assessment: Pain Rating Score #: 0 Follow-up for pain: No follow-up for pain indicated and patient agreed to proceed with treatment PRECAUTIONS: Weight Bearing Status: (no restrictions) Activity Level: (Ambulate with Assist) OBJECTIVE: At start of therapy session, patient found in WC with PT taniya Leon in therapy gym Vitals: (*Assess the 3 levels of oxygen saturations both for room air and 02 unless rest on room air is 88% or less). Rest BP: 122/55 HR: 60 Sp02 Sp02 98% Room Air L O2 Ex/Gait/Activity Without 02 BP: HR: 85 Sp02 94% Room Air Post Activity BP: HR: 64 Sp02 95% Room Air Observations: Pt given cues for pursed lip breathing during mobility Mental Status/Cognition: Level of Consciousness-Adult: Alert Orientation Level: Oriented X4 Cognition: Follows Commands-Consistent;Processing-delayed;Safety awareness-decreased Mobility: A gait belt and non-slip socks were used for all out of bed activity this date. Bed Mobility: Rolling: Activity Does Not Occur (pt arrived to PT gym in ) Supine to Sit: Activity Does Not Occur (Pt arrived to PT gym in wheelchair)Sit to Supine: Activity Does Not Occur (Pt arrived to PT gym in ) Transfers: Sit to Stand: Minimal Assistance;Requires Verbal Cues for Safety;Requires Verbal Cues for Technique Stand to Sit: Minimal Assistance;Requires Verbal Cues for Safety;Requires Verbal Cues for Technique Gait: Weight Bearing Status: (no restrictions) Distance Ambulated: (70' x 2 with a seated break) Ambulation: Assistive Device: Gait Belt;Walker-2 Wheeled Ambulation: Level of Assistance: Minimum Assistance Ambulation: Gait Deviations: Deedee - Decreased;Path Deviation (cues to stay close to) Stairs: Number: 1 Stairs: Assistive Device: Gait Belt Stairs: Use of Rails: Both Stairs: Level of Assistance: Minimum Assistance Balance: Balance Scales/Tests Used: Sitting: Static/Dynamic;Standing: Static/Dynamic Sitting - Static: Good - Sitting - Dynamic: Good - Standing - Static: Fair;With Both Upper Extremity's Support (on wheeled walker) Standing - Dynamic: Fair;With Both Upper Extremity's Support (on wheeled walker) ACTIVITY TOLERANCE: Patient's activity tolerance: fair plus. TREATMENT/INTERVENTIONS: transfer training, gait training, stair training and AROM seated LE's for marching, LAQ, hip abd/adduction and heel/toe raises x 10 reps each Modified [place]: Current Modified [place] Score: 4 EDUCATION: While performing PT, Patient was instructed in:functional mobility training, safety awareness/fall precautions , home exercise program, pursed lip breathing techniques Presented to patient who demonstrates Fair understanding of instructions given. ASSESSMENT: Patient would benefit from additional Physical Therapy sessions to achieve the following functionalgoals to enhance independence. Short Term Goals: Goal formation??with patient Patient will transfer sit to/from stand??with stand by assist Patient will transfer bed to/from chair??with stand by assist Patient will ambulate??75??feet with minimal assist??without??AD ?? Intermediate Goal(s): Patient to discharge to appropriate next level of inpatient care. INFORMED CONSENT TO TREATMENT: Plan of care including recommended therapy, goals and frequency, discussed with patient who understands and agrees to proceed. Plan: Patient continues to benefit from skilled therapy services., Continue with goals as established. If patient is discharged from the facility, this note serves as a discharge summary if further physical therapy visits did not occur. Refer to filed flowsheet for further details. Following therapy session, patient left in in therapy gym with Argenis DODSON. * Chidi Martins - 08/19/2022 8:43 AM CDT Chart Review Medically ready to transition to next level of care Post acute recommendation: intense 3 hour per day multidisciplinary inpatient therapies Post acute recommendation: [facility] Ramachandran Anderson Liaison still pending insurance authorization EMS tentatively arranged for 6pm today ([facility] ground Crew) UPDATE 08/19/2022 1:07 PM Spoke w/ Cha (Juan Pablo Liaison) Pending insurance auth Not medically ready to transition to next level of care EMS postponed until 08/20. NIMO Kwok, [employer] Commander [phone] 08/19/2022 8:43 AM * Yazmin Evangelista RN - 08/18/2022 9:45 PM CDT Problem: Neurological Deficit Goal: Neurological status is stable or improving Outcome: Progressing Problem: Hemodynamic Status/Cardiac Output Goal: Patient has stable vital signs and fluid balance Outcome: Progressing Problem: Oxygenation/Respiratory Function Goal: Respiratory rate/effort will be within specified limits Outcome: Progressing Problem: Mobility Goal: Patient's mobility/activity will be maintained as optimum level for age, diagnosis and physical limitations Outcome: Progressing Problem: Aspiration Precautions Goal: Patient's risk of aspiration is minimized Outcome: Progressing * Dayna Stauffer OT - 08/18/2022 4:21 PM CDT [facility] Department of Physical Medicine & Rehabilitation Progress Note Patient: Kirsty Rea [facility] Record Number: [id number] Date of : 1940 Age: [age] year old 08/18/22 1505 Missed Visit Missed Visit (With Physical therapy at time of attempt) * Christal Bautista PT - 08/18/2022 3:25 PM CDT [facility] Physical Medicine and Rehabilitation Physical Therapy Progress Note Patient: Kristy Rea [facility] Record Number: [id number] Date of : 1940 Age: [age] year old PPE worn by staff: gloves;mask - procedural PPE worn by patient: mask - procedural Discharge Recommendation: Patient will benefit from intense 3 hour per day multidisciplinary inpatient therapies due to loss of independence. SUBJECTIVE: Patient eager to walk with PT, c/o increased SOB during ambulation. Pain Assessment: Pain Rating Score #: 0 Follow-up for pain: No follow-up for pain indicated and patient agreed to proceed with treatment PRECAUTIONS: Weight Bearing Status: (no restrictions) OBJECTIVE: At start of therapy session, patient found in bed and with no alarm General Appearance: pt sleeping on PT arrival LDAs: IV's: Peripheral line Vitals: (*Assess the 3 levels of oxygen saturations both for room air and 02 unless rest on room air is 88% or less). Rest BP: 110/66 HR: Sp02 Sp02 Room Air L O2 Ex/Gait/Activity Without 02 BP: HR: Sp02 Room Air Ex/Gait/Activity With 02 BP: HR: Sp02 L O2 Post Activity BP: 130's/60's HR: Sp02 Sp02 L O2 Room Air Observations: Mental Status/Cognition: Orientation Level: Oriented X4 Cognition: Safety awareness-decreased;Judgement-decreased Mobility: A gait belt and non-slip socks were used for all out of bed activity this date. Bed Mobility: Rolling: Activity Does Not Occur Supine to Sit: Stand By Assist with HOB flat Sit to Supine: Stand By Assist Transfers: Sit to Stand: Stand By Assist;Minimal Assistance;Requires Verbal Cues for Safety;Requires Verbal Cues for Technique Stand to Sit: Minimal Assistance;Requires Verbal Cues for Safety Gait: Weight Bearing Status: (no restrictions) Distance Ambulated: 60 FEET Ambulation: Assistive Device: Walker-2 Wheeled;Gait Belt;None Ambulation: Level of Assistance: Minimum Assistance Ambulation: Gait Deviations: Path Deviation (decreased coordination and functional strength of R LE; cues to keep THUAN within walker frame) Comments: Balance: Balance Scales/Tests Used: Sitting: Static/Dynamic;Standing: Static/Dynamic Sitting - Static: Fair (drifts backward with prolonged sitting and when distracted) Sitting - Dynamic: Fair;Fair - Standing - Static: Fair;With Both Upper Extremity's Support Standing - Dynamic: Fair -;With Both Upper Extremity's Support ACTIVITY TOLERANCE: Patient's activity tolerance: good TREATMENT/INTERVENTIONS: transfer training, gait training and monitoring of vitals Modified [place]: Current Modified [place] Score: 4 EDUCATION: While performing PT, Patient was instructed in:functional mobility training, energy conservation, safety awareness/fall precautions Presented to patient who demonstrates Fair understanding of instructions given. ACTIVITY TOLERANCE: Patient's activity tolerance: good ?? TREATMENT/INTERVENTIONS: evaluation, bed mobility training, transfer training, gait training, balance activities and monitoring of vitals ?? Modified [place]: Current Modified Elizabeth Score: 4 ?? EDUCATION: While performing PT, Patient was instructed in:functional mobility training, energy conservation, discharge planning, use of call light ?? Presented to patient who demonstrates Good understanding of instructions given. ?? INFORMED CONSENT TO TREATMENT: Plan of care including recommended therapy, goals and frequency, discussed with patient who understands and agrees to proceed. ?? ASSESSMENT: Patient would benefit from additional Physical Therapy sessions to achieve the following functionalgoals to enhance independence. ?? Short Term Goals: Goal Formation With patient Patient will transfer sit to/from stand with stand by assist Patient will transfer bed to/from chair with stand by assist Patient will ambulate 75 feet with minimal assist without AD Intermediate Goal(s): Patient to discharge to appropriate next level of inpatient care. ?? Equipment Issued: gait belt ?? Plan: Plan: Gait training Transfer training Balance training ?? If patient is discharged from the facility, this note serves as a discharge summary if further physical therapy visits did not occur. Refer to filed flowsheet for further details. ?? Following therapy session, patient left in patient bed with bed alarm activated and tech at bedsidefor blood draw, family in room.? * Grover Alexis - 08/18/2022 2:14 PM CDT Stroke Service Daily Progress Note ?? Kirsty Rea Age: [age] year old Date of : 1940 Date of Admission: 08/15/2022 Hospital Day: 2 ? Subjective ?? Patient is a 81 year old white female with a PMH of HTN and CKD3 who presented to OSH on 08/15/22 with generalized weakness and nausea/vomiting, transfered to 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 ICH score was 2 (infratentorial, age) on arrival. ?? Interval History: Patient was hypertensive overnight requiring IV antihypertensives with blood pressures ranging [id number]. Patient remained afebrile (Tm - 98.8) ?? Objective ?? Vitals Patient Vitals for the past 6 hrs: ?? Temp Pulse Resp BP BP Method 08/17/22 1200 98.1 ??F (36.7 ??C) 74 20 138/75 Automatic 08/17/22 0800 98.1 ??F (36.7 ??C) 75 20 143/66 Automatic ? Exam: ?? Heart: RRR, 2/6 systolic murmur heard at L lower sternal border Lungs: CTAB, normal effort on room air ?? Cortical Function Mental Status Awake, alert, follows commands Orientation Person, place, time, and situation Language Fluency intact, comprehension intact, repetition intact Visual [place]ues[place] Intact bilaterally to confrontation Neglect No visual neglect noted, no tactile neglect noted ?? Cranial Nerves II Pupils 2 mm and bilaterally reactive to light. Fundoscopic exam not performed. VIII Hearing intact b/l to voice. III/IV/ Extraocular muscles intact. No diplopia, ptosis, nystagmus or convergence abnormalities noted. IX/X Palate elevated symmetrically without phonation abnormalities noted. V Not examined. No subjective deficits. XI Head turning and shoulder shrug are intact. VII No facial palsy noted. XII Tongue is midline with normal movements and no atrophy noted. ?? Motor Function Movement No abnormalities noted Bulk No abnormalities noted Tone No abnormalities noted ? Proximal Upper Distal Upper Proximal Lower Distal Lower Right 5/5 5/5 5/5 5/5 Left 5/5 5/5 5/5 5/5 ?? Sensory Light Touch Symmetric and intact bilaterally ?? Gait Deferred ?? Imaging: MRI showed: 1.Redemonstration of small right pontine hemorrhage with mild surrounding vasogenic edema. No significant mass effect. No supratentorial hydrocephalus. 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 3.Otherwise, no large arterial occlusions or significant stenoses identified in the head.? TTE Stage 1 diastolic dysfunction EKG Sinus arrhythmia ?? Labs: HbA1c 5.4 WBC 6.3 Hb 7.0 ?? Na 134 K 3.0 CO2 16 BUN 58 Cr 4.22 ?? Assessment ?? Patient is a 81 year old white female with a PMH of HTN and CKD3 who presented to OSH on 08/15/22 with generalized weakness and nausea/vomiting, transfered to 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 ?? Stroke Type: Hemorrhagic Stroke Mechanism: HTN vs AVM ?? Plan ?? #pontine hemorrhagic stroke - no additional stroke w/u pending - Continue Q??4??neurochecks; NIHSS Q daily - NSGY signed off - BP Goal: SBP 130-150 - Swallow Evaluation: within normal limits - PT/OT Evaluation: recommended acute rehab (3hrs per day) -Patient's family prefers SNF - DVT prophylaxis: started hepatin 5000u tid 08/17 ?? #HTN -Home meds: labetalol 200mg PO bid and nifedipine 90mg PO bid -BP well controlled in last 24hrs -Goal SBP 130-150 -currently on labetalol 200mg bid, nifedipine 90mg bid, clonidine 0.2mg tid, hydralazine 50mg tid -hydralazine 10mg IV PRN, labetalol 10mg IV PRN ?? #TOÑA on CKD5 #non-gap metabolic acidosis -Seen by nephrology -urine studies pending -avoid diuretics ?? #anemia - likely anemia of chronic disease 2/2 CKD - Hb 6.2 today, up from 7.1 yesterday - Hb 8.4 on presentation. - EPO ordered by nephrology - Iron panel wnl. - Type and cross and 1unit pRBCs today for Hb of 6.2 ?? Grover Alexis MS3 * Aroldo Rivera APRN-BOX SHOOK PATCHER - 08/18/2022 2:05 PM CDT NEUROLOGY PROGRESS NOTE 08/18/2022 at 2:06 PM Admission Date: 08/15/2022 ?? HISTORY: History of Present Illness: 81 y/o F with past medical history of HTN, CKD3, Morphea and osteopenia transferred from [facility] to [facility] ICU for pontine intraparenchymal hemorrhage. Patient reported developing generalized weakness and nausa/vomiting. She had several episodes of vomiting but denies ALDANA,CP, speech changes, ??vision or sensory changes. Reports photosensitivity. 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 Admitted to Neuro ICU for further monitoring ICU Timeline: 08/15: NAEON. BP 120-140 on nicardipine gtt. Will not start oral BP meds until know cardiac function as on odd home med regimen. No new complaints.?? 08/16: nephrology team consulted, started on home labetalol 200mg BID, started Senna+miralax Interval History: No acute events overnight OBJECTIVE: PHYSICAL EXAM Temp: [97.4 ??F (36.3 ??C)-98.3 ??F (36.8 ??C)] 98.3 ??F (36.8 ??C) Pulse: [61-79] 75 Resp: [18-20] 18 BP: (114-131)/(46-62) 114/57 Neurological Exam: Cortical Function MS: Awake, Alert; Oriented to Person, Place, Time, Situation Follows commands Language: Fluency, Comprehension, Repetition, all intact VF: Intact to confrontation Neglect: No visual neglect, No tactile neglect Cranial Nerves Pupils 3 mm and BRTL; EOMI; No Ptosis; No Nystagmus Facial sensation intact BL (forehead, infraorbital, jaw) Facial movements intact (upper and lower) Hearing intact to finger rub BL ?? Motor Abnormal Movement: None Bulk: Normal Tone: Normal Strength: Appropriate for age RUE 5/5 LUE 5/5 RLE 5/5 LLE 5/5 DTR: Bi Tri BR Pat Ach Toes R 2+ 2+ 2+ 2+ 2+ Down L 2+ 2+ 2+ 2+ 2+ Down Sensory Intact to Light Touch, Pin Prick, Temperature, Vibration BL throughout ?? Gait and Balance Deferred ?? Imaging studies reviewed MRI/A: 1.Redemonstration of small right pontine hemorrhage with mild surrounding vasogenic edema. No significant mass effect. No supratentorial hydrocephalus. 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 3.Otherwise, no large arterial occlusions or significant stenoses identified in the head. ?? TTE: There is severe concentric left ventricular hypertrophy. The left ventricle is normal size. Left ventricular segmental wall motion is normal. Left ventricular systolic function is hyperdynamic with an ejection fraction by Biplane Method of Discs of 78 %. The left ventricular diastolic function is abnormal (Grade I), consistent with low normal left ventricle filling pressures. The right ventricular cavity size is normal. Normal right ventricular systolic function. Mild pulmonary hypertension, estimated pulmonary arterial systolic pressure is 48 mmHg. The left atrium is mildly enlarged. Injection of agitated saline was positive for intracardiac shunt. ASSESSMENT AND PLAN: 81 y/o F w/ PMH of??HTN??and??CKD3, Morphea and osteopenia transferred from [facility] to [facility] Neuro ICU for pontine intraparenchymal hemorrhage. ?? Stroke Type:??. Hemorrhagic Stroke Mechanism :??Hypertension??v vascular abnormality ?? - Continue Q 4 neurochecks; NIHSS Q daily - Stat CT head for any change in neurological examination - NSGY following - Head of bed > 30?? - Avoid hypoglycemia, hyponatremia, and hyperthermia - Sodium goals:??normal range - BP Goal: less than 160 - Continue diet per ST; PT/OT ?? #??HTN - Nifedipine ER 90 mg qday - Refused increase dose of labetalol to 300mg BID - BP improved today and will remain on labetalol 200mg BID - Continue Hydralazine 50mg TID - Continue Clonidine 0.2mg TID ?? # TOÑA on CKD # CKD 3 - Cr 3.3 on 04/2022 - Cr 3.4 on admission?? - Nephrology consult, reccs appreciated?? - Bladder scans Q8 and straight cath orders if >350 - SPEP/UPEP and immunofixation - Monitor intake and output - Replete electrolytes as needed #Normocytic??Anemia?-??Hgb at presentation initially 8.4 (baseline) but dropped to 7.0 following IVF; 6.2 today - Likely has component of anemia of chronic disease 2/2 renal dysfunction - Nephrology following and recs appreciated - Epo 7000U ordered - Transfuse for Hgb < 7.0 Case findings discussed with Dr. Silva, Stroke attending. Aroldo Rivera APRN-BOX SHOOK PATCHER 08/18/2022 2:06 PM * María Isaac MD - 08/18/2022 11:30 AM CDT Nephrology Progress Note 08/18/2022 11:30 AM Patient Name: Kirsty Rea (81 year old) Room Number: 515/01 Attending: Héctor Silva MD Hospital Day: 3 Subjective: Interval history: - No acute issues or events overnight - Says that her strength is better this AM than it was compared to yesterday - Continues to eat and drink well but is having issues with urination; 2 unmeasured urine over [id number], bladder scan noting 408 this AM Objective: Patient Vitals for the past 6 hrs: Temp Pulse Resp BP BP Method 08/18/22 0801 97.8 ??F (36.6 ??C) 62 18 125/62 Automatic Intake/Output Summary (Last 24 hours) at 08/18/2022 1130 Last data filed at 08/18/2022 0602 Gross per 24 hour Intake 480 ml Output 0 ml Net 480 ml Physical Exam General: NAD. Sitting upright comfortably in bed. HENT: NC/AT Eyes: Anicteric. Non-injected. Chest: CTAB. No crackles or wheezes. No increased work of breathing. Cardiovascular: RRR. No murmurs, rubs, or gallops Abdomen: Soft. NT/ND. Normal BS+. Extremities: No signs of clubbing, cyanosis, or edema. Skin: Warm. Dry. Neurological: AOx3; conversational and follows commands. Moves all extremities spontaneously without issue. No focal deficits. Psych: Appropriate mood and affect Medications SCHEDULED MEDICATIONS: 0.9% NaCl injection 3 mL, Intracatheter, q8h cloNIDine (Catapres) tablet 0.2 mg, Oral, TID epoetin deyanira-EPBX (Retacrit) injection 7,000 Units, Subcutaneous, q7 days heparin injection 5,000 Units, Subcutaneous, TID hydrALAZINE (Apresoline) tablet 50 mg, Oral, TID labetalol (Normodyne; Trandate) tablet 200 mg, Oral, q12h NIFEdipine CR osmotic 24hr (Procardia-XL) tablet 90 mg, Oral, QDAY polyethylene glycol 3350 (Miralax) packet 17 g, Oral, QDAY ?? senna (Senokot) tablet 17.2 mg, Oral, QDAY ?? CONTINUOUS MEDICATIONS: PRN MEDICATIONS: ?? 0.9% NaCl injection 1-10 mL, Intracatheter, PRN Data Review Recent Labs Component Name 08/18/22 1011 08/17/22 0426 08/16/22 0044 WBC 4.2 6.3 6.8 HGB 6.2* 7.1* 7.0* HCT 19.3* 20.8* 21.0* PLTCOUNT 160 197 196 Recent Labs Component Name 08/18/22 1011 08/15/22 0339 03/09/22 1312 SODIUM - - 140 POTASSIUM 3.8 - 3.9 CHLORIDE - - 109 CO2 19* - 21 BUN 63* - 65* CREATININE 4.42* - 2.74* CALCIUM 8.3* - 8.7 ALBUMIN - - 3.6 ALT - - 12 AST - - 14 GLUCOSE 109 - 99 - = values in this interval not displayed. Recent Labs Component Name 08/18/22 1011 08/17/22 0420 08/16/22 0044 INR 1.0 1.0 1.0 Microbiology: [facility] Imaging: [facility]ed in [facility] Assessment and Plan: #TOÑA on CKD5 #Non-Anion Gap Metabolic Acidosis - Most likely prerenal in setting of vomiting, blood loss, diuretic use prior to presentation; other less likely etiologies include obstruction (does have some retention but urinary habits unchanged from home), infection (trace bacteria but no other signs to suggest) - Baseline Cr around 3.3 since 04/2022; CKD 2/2 HTN - Sees nephrology (Dr. 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 #Hypertension - Home Medications: HCTZ 12.5mg daily, Nifedipine ER 90mg, Labetalol 200mg BID - SBPs have been 130s-150s while here at [facility] PLAN: - Continue labetalol and home nifedipine - Monitor BP response while on clonidine and hydralazine as may not need both of these medications - Avoid diuretic use in setting of TOÑA on CKD ? #Normocytic Anemia - Hgb at presentation initially 8.4 (baseline) but dropped to 7.0 following IVF - Likely has component of anemia of chronic disease 2/2 renal dysfunction - Iron studies ordered this hospitalization: - Iron 77 - TSat 31% - TIBC 248 - Ferritin 180 - Iron studies suggesting mixed picture of iron deficiency and anemia of chronic disease PLAN: - Has Epo 7000U ordered; initially refused, counseled on benefits, would attempt to give - Consider IV Iron 200mg (can give up to 5 doses over 14 day period; recommend up to 5 days worth or throughout remainder of inpatient stay if shorter than 5 days) - Transfuse for Hgb < 7.0 ? Patient will be seen and discussed with attending physician, Dr. Cintron. María Isaac MD Internal Medicine, PGY-3 08/18/2022 11:30 AM Associated attestation - Peggy Cintron MD - 08/18/2022 5:03 PM CDT Attending Addendum Noted lower hemoglobin level today. Recommend blood transfusion and defer iron replacement. Agree with DARÍO (epoetin) administration. Please see Dr. Isaac's note for further details and contact us with any questions. * Chidi Martins - 08/18/2022 8:41 AM CDT Chart Review Medically ready to transition to next level of care Post acute recommendation: intense 3 hour per day multidisciplinary inpatient therapies Post acute recommendation: [facility] Spoke with Pt's daughters, Ms. Kumar ([phone]) Discussed transition planning. VM left for Pt's daughter, Agnes [phone] Clinical team updated UPDATE 08/18/2022 9:25 AM Spoke w/ Cha Bee) Pending insurance verification Facility is able to accept today if no authorization is required SW will await returned call from Cha. UPDATE 08/18/2022 12:43 PM Per acute rehab, insurance auth is required and submitted WH hgb is 6.2 NIMO Kwok, [employer] Commander [phone] 08/18/2022 8:42 AM * Héctor Silva MD - 08/18/2022 8:37 AM CDT Images from the original note were not included. I have seen and examined the patient. I spent 25 minutes all together, over 50% of which was spent on counseling and/or care coordination. Date of Service: 08/18/2022 This is a time-based encounter; independent of trainees or APPs. Héctor Silva MD Interval History:Kirsty Rea is a 81 year oldF who developed sudden on nausea and vomiting on 08/15. 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 Transferred to [facility] for further management. MRdoes not reveal underlying pathology. Consult nephrology for TOÑA on CKD. ?? Physical Exam: Alert and Oriented, Nl Language, No Neglect EOMI, PERRL, Facial Expression Symmetric, VFF Motor: 5/5 and Symmetric Sensation: Symmetric to LT ?? Plan: Further Testing: As needed to evaluate neurological changes Secondary Prevention: SBP goal 130 to 150 Recovery: TBD LOS 3 Multidisciplinary rounds were held at 930am and the patient's care and recovery plan were reviewed and developed with the assembled team. MEDICATIONS FOR CURRENT ENCOUNTER: ?? SCHEDULED MEDICATIONS: ?? cloNIDine (Catapres) tablet 0.2 mg, Oral, TID ?? epoetin deyanira-EPBX (Retacrit) injection 7,000 Units, Subcutaneous, q7 days ?? heparin injection 5,000 Units, Subcutaneous, TID ?? hydrALAZINE (Apresoline) tablet 50 mg, Oral, TID ?? labetalol (Normodyne; Trandate) tablet 200 mg, Oral, q12h ?? NIFEdipine CR osmotic 24hr (Procardia-XL) tablet 90 mg, Oral, QDAY ?? polyethylene glycol 3350 (Miralax) packet 17 g, Oral, QDAY ?? senna (Senokot) tablet 17.2 mg, Oral, QDAY ?? CONTINUOUS MEDICATIONS: ?? PRN MEDICATIONS: ?? 0.9% NaCl infusion rate and volume, Intravenous, Once PRN Patient Vitals for the past 24 hrs: Temp Pulse Resp BP 08/18/22 1206 98.3 ??F (36.8 ??C) 75 18 114/57 08/18/22 0801 97.8 ??F (36.6 ??C) 62 18 125/62 08/18/22 0408 97.4 ??F (36.3 ??C) 62 18 119/49 08/18/22 0037 97.5 ??F (36.4 ??C) 61 18 118/50 08/17/22 2100 97.5 ??F (36.4 ??C) 70 18 114/46 08/17/22 1606 98.1 ??F (36.7 ??C) 79 20 131/57 08/17/22 1552 -- -- -- 130/58 Recent Labs Component Name 08/18/22 1011 08/17/22 0405 08/16/22 004 NA 132* 134* 139 CL 102 105 106 CO2 19* 16* 18* BUN 63* 58* 56* CREATININE 4.42* 4.22* 4.27* CALCIUM 8.3* 8.7 8.5 PHOS 5.3* 4.4 5.2* Recent Labs Component Name 08/18/22 1011 08/17/22 0426 08/16/22 0044 WBC 4.2 6.3 6.8 RBC 2.25* 2.57* 2.50* HGB 6.2* 7.1* 7.0* HCT 19.3* 20.8* 21.0* No results for input(s): CHOL, TRIG, HDL, VLDL, LDL, LDLCALC, LDLDIRECT, CHOLHDL in the last 37916 hours. Recent Labs Component Name 08/16/22 004 HGBA1C 5.4 EAG 108 Recent Labs Component Name 08/18/22 1011 08/17/22 0426 08/16/22 004 PLTCOUNT 160 197 196 * Tish Herrera RN - 08/18/2022 6:40 AM CDT Shift summary: Daughter Stacy called around 2200 concerned about patient getting enough rest, patient was sleeping at that time, however from 2300 onward patient drifted in and out of sleep, often calling for someone to come in the room to talk to her because she felt lonely. Patient refused heparin shot and refused full dose of labetalol, only took 200mg as opposed to 300mg see MAR. SBP in acceptable range. 0645-Patient unable to urinate for labs. bladder scanned patient with estimated volume of 408ml in bladder. Per orders, rescan in 2 hours and if greater than 500 on bladder scan, then straight cath if patient unable to urinate. * Tish Herrera RN - 08/18/2022 4:39 AM CDT Problem: Fall Risk Goal: Fall risk and fall related injury risk are minimized (interventions related to the fall risk can be found in the flowsheet documentation) Outcome: Progressing Problem: Neurological Deficit Goal: Neurological status is stable or improving Outcome: Progressing Problem: Hemodynamic Status/Cardiac Output Goal: Patient has stable vital signs and fluid balance Outcome: Progressing Problem: Oxygenation/Respiratory Function Goal: Respiratory rate/effort will be within specified limits Outcome: Progressing Problem: Mobility Goal: Patient's mobility/activity will be maintained as optimum level for age, diagnosis and physical limitations Outcome: Progressing Goal: Continuum of care needs are further met through referral to outpatient services when appropriate. Outcome: Progressing Goal: Patient reports the ability to perform Activities of Daily Living. Outcome: Progressing Problem: Communication Impairment/Dysarthria Goal: Ability to express needs and understand communication Outcome: Progressing Problem: Nutrition Goal: Nutritional status is improving Outcome: Progressing Problem: Aspiration Precautions Goal: Patient's risk of aspiration is minimized Outcome: Progressing Problem: Glycemic Control Goal: Clinical indication of glycemia balance is achieved Outcome: Progressing Problem: Knowledge Deficit,Education,Discharge Plan Goal: The patient/family will understand cerebrovascular disease and its symptoms, treatment and management Outcome: Progressing Problem: Mobility Goal: STG - Patient will ambulate Outcome: Progressing * Grover Alexis - 08/17/2022 3:52 PM CDT Family Notification Documentation Contact made: 08/17/2022 3:52 PM Person(s) contacted: Stacy Sheppard (daughter) Method of communication: In-person Duration of discussion: 15 minutes Summary of discussion Ms. Sheppard was nervous about her mother's health, stating that she looked much worse today than yesterday. She heard about the high blood pressures overnight and was worried that we would discharge her mother in [id number] health. I reassured Ms. Sheppard that we are keeping a close eye on her mother's blood pressures and are adjusting the medications accordingly. In addition, I explained that her mother was quite anemic whenshe presented and it was likely worsened by dilution from IV fluids. She understood that the anemiawas due to her kidney disease, and agreed it was important to follow-up with her new radiology technologist. I reassured her that she was not going anywhere today as we are still waiting on SNF referrals. I told her we spoke to Ms. Rea's son about his preference for SNF rather than acute care facility despite PT recommendations; she agreed that her mother should go to a SNF but told me she would rather the team contact her with updates rather than her brother. By the end of the conversation she felt better about her mother's health; she had no more questionsfor me. * Darell Bernal RN - 08/17/2022 3:16 PM CDT Case Management Progress Note Anticipated level of care at discharge: Home, Acute Rehab Facility Discharge Plan: Patient is new to my service. Discharge needs dependent on response to clinical treatment and therapy recommendations. CM will continue to follow. Current recommendation is for acute rehab. Basic Needs Assessment (BNA) Score: 6 Anticipated Discharge Date: Anticipated Discharge Date: 08/17/22 Patient/Family provided with list of resources? Unknown Preferred Provider / High Quality Network List given?: Unknown Reason for provider choice: Unknown Transportation at Discharge: Follow Up Appointment: Transportation to MD: Equipment at Home: Equipment at Home: Cane-Straight List DME patient requires but does not have: DME Provider: [facility] Screening: Medication affordability concerns: Auth Number (if required) NH: DME: Medications: Transportation: Name: Darell Bernal RN Phone: [phone] * Aroldo Rivera, CLIMATOLOGY TEACHER-BOX SHOOK PATCHER - 08/17/2022 12:45 PM CDT NEUROLOGY PROGRESS NOTE 08/17/2022 at 12:45 PM Admission Date: 08/15/2022 HISTORY: History of Present Illness: 81 y/o F with past medical history of HTN, CKD3, Morphea and osteopenia transferred from [facility] to [facility] ICU for pontine intraparenchymal hemorrhage. Patient reported developing generalized weakness and nausa/vomiting. She had several episodes of vomiting but denies ALDANA,CP, speech changes, ??vision or sensory changes. Reports photosensitivity. 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 Admitted to Neuro ICU for further monitoring ICU Timeline: 08/15: NAEON. BP 120-140 on nicardipine gtt. Will not start oral BP meds until know cardiac function as on odd home med regimen. No new complaints. 08/16: nephrology team consulted, started on home labetalol 200mg BID, started Senna+miralax Interval History: No acute events overnight. Transferred to neuro floor. OBJECTIVE: PHYSICAL EXAM Temp: [97.6 ??F (36.4 ??C)-98.8 ??F (37.1 ??C)] 98.1 ??F (36.7 ??C) Pulse: [55-91] 74 Resp: [11-23] 20 BP: (125-178)/(58-92) 138/75 Neurological Exam: Cortical Function MS: Awake, Alert; Oriented to Person, Place, Time, Situation Follows commands Language: Fluency, Comprehension, Repetition, all intact VF: Intact to confrontation Neglect: No visual neglect, No tactile neglect Cranial Nerves Pupils 3 mm and BRTL; EOMI; No Ptosis; No Nystagmus Facial sensation intact BL (forehead, infraorbital, jaw) Facial movements intact (upper and lower) Hearing intact to finger rub BL Motor Abnormal Movement: None Bulk: Normal Tone: Normal Strength: Appropriate for age RUE 5/5 LUE 5/5 RLE 5/5 LLE 5/5 DTR: Bi Tri BR Pat Ach Toes R 2+ 2+ 2+ 2+ 2+ Down L 2+ 2+ 2+ 2+ 2+ Down Sensory Intact to Light Touch, Pin Prick, Temperature, Vibration BL throughout Gait and Balance Deferred Imaging studies reviewed MRI/A: 1.Redemonstration of small right pontine hemorrhage with mild surrounding vasogenic edema. No significant mass effect. No supratentorial hydrocephalus. 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 3.Otherwise, no large arterial occlusions or significant stenoses identified in the head. TTE: There is severe concentric left ventricular hypertrophy. The left ventricle is normal size. Left ventricular segmental wall motion is normal. Left ventricular systolic function is hyperdynamic with an ejection fraction by Biplane Method of Discs of 78 %. The left ventricular diastolic function is abnormal (Grade I), consistent with low normal left ventricle filling pressures. The right ventricular cavity size is normal. Normal right ventricular systolic function. Mild pulmonary hypertension, estimated pulmonary arterial systolic pressure is 48 mmHg. The left atrium is mildly enlarged. Injection of agitated saline was positive for intracardiac shunt. ASSESSMENT AND PLAN: 81 y/o F w/ PMH of HTN and CKD3, Morphea and osteopenia transferred from [facility] to [facility] Neuro ICU for pontine intraparenchymal hemorrhage. ?? Stroke Type:??. Hemorrhagic Stroke Mechanism :??Hypertension??v vascular abnormality - Continue Q 4 neurochecks; NIHSS Q daily - Stat CT head for any change in neurological examination - NSGY following - Head of bed > 30?? - Avoid hypoglycemia, hyponatremia, and hyperthermia - Sodium goals: normal range - BP Goal: less than 160 - Continue diet per ST; PT/OT # HTN - Nifedipine ER 90 mg qday - Increased home labetalol to 300mg BID - Continue Hydralazine 50mg TID - Continue Clonidine 0.2mg TID # TOÑA on CKD # CKD 3 - Cr 3.3 on 04/2022 - Cr 3.4 on admission - UA, u-lytes and straight cath orders - Nephrology consult, reccs appreciated - Monitor intake and output - Replete electrolytes as needed Case findings discussed with Dr. Silva, Stroke attending. Aroldo Rivera APRN-BOX SHOOK PATCHER 08/17/2022 12:45 PM * Chidi Martins - 08/17/2022 11:38 AM CDT Chart review/Stroke Rounds Not medically ready to transition to next level of care Post acute recommendation: Undetermined Pending skilled therapy evaluations Please refer to CM note for additional information. NIMO Kwok, TEO Bomb Squad Commander [phone] 08/17/2022 11:39 AM * Vanessa Blakely SLP - 08/17/2022 11:37 AM CDT [facility] Department of Physical Medicine & Rehabilitation Progress Note Patient: Kirsty Rea [facility] Record Number: [id number] Date of : 1940 Age: [age] year old [employer] attempted to follow up with Pt this afternoon over lunch to assess diet tolerance since evaluation was completed on 08/15. Pt politely declined any food/liquid trials from her lunch tray during visit given her reported lack of appetite, however Pt denied any concerns regarding her swallow function since last HARBORMASTER visit. HARBORMASTER will d/c Pt at this time given functional swallow during initial evaluation without any change in Pt's vitals to suggest aspiration since prior visit. Please feel free toreconsult should any concern regarding Pt's swallowing safety arise. Vanessa Barr M.S., [facility] Speech Language Pathologist [phone] * Kaley Hernandez OT - 08/17/2022 9:57 AM CDT [facility] Physical Medicine and Rehabilitation Occupational Therapy Initial Evaluation Note Patient: Kirsty Rea [facility] Record Number: [id number] Date of : 1940 Age: [age] year old PPE worn by staff: gloves;mask - procedural Tech: N/A Discharge Recommendation: Patient will benefit from intense 3 hour per day multidisciplinary inpatient therapies due to decreased ADLs, mobility. In addition to the 1:1 evaluation of the patient, additional eval time was spent completing the chart review prior to the assessment, completing the multidisciplinary plan of care and education plan post evaluation and communicating results of the eval to other treatment team members. Nurse and Physical Therapy contacted regarding patient status and/or discharge plan. Physician Orders: Evaluation and Treat Activity Level: ambulate PRECAUTIONS: Weight Bearing Status: (WBAT) DIAGNOSIS: Patient Active Problem List: Localized morphea Osteoporosis Other symptoms and signs involving the musculoskeletal system Hearing loss Hypokalemia Adverse effect of carbonic-anhydrase inhibitors, benzothiadiazides and other diuretics, initial encounter Other specified health status Hypertension Other amnesia Chronic kidney disease, stage 2 (mild) Anemia in stage 2 chronic kidney disease Encounter for routine gynecological examination Neuroma of foot Acute bronchitis Acute kidney failure ([facility]/HCC) Allergic urticaria Benign hypertensive heart disease 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 failure Cervicalgia Chronic kidney disease, stage 3 (moderate) Contact dermatitis and other eczema Disturbance of skin sensation Dizziness and giddiness Other malaise and fatigue Hypertensive chronic kidney disease with stage 1 through stage 4 chronic kidney disease, or unspecified chronic kidney disease Hypertonicity of bladder Hypertrophy of breast Need for prophylactic vaccination and inoculation against influenza Localized edema Mixed hyperlipidemia Generalized muscle weakness Neoplasm of uncertain behavior of skin Affections of shoulder region Other proteinuria Other specified diffuse disease of connective tissue (CMS/HCC) Other specified disorder of nervous system Pain in joint, shoulder region Pain in thoracic spine Thoracic or lumbosacral neuritis or radiculitis Senile osteoporosis Congenital anomaly of integument Disorder of skin and subcutaneous tissue Intracranial hemorrhage, nontraumatic ([facility]/HCC) Past Medical History: Diagnosis Date ??? CKD (chronic kidney disease) stage 3, GFR 30-59 ml/min ([facility]/HCC) proteinuria ??? HTN (hypertension), benign ??? 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 Morphea ??? Osteopenia SUBJECTIVE: Subjective: Pt is pleasant & agreeable to participate. PATIENT GOALS: Patient's Primary Concern: To get better Home Situation: Type of Residence: Private Residence Lives with:: Son Steps to Enter: No Home Structure: One Story Primary Bedroom: First Floor Primary Bathroom: First Floor Bathroom : Walk in Shower Equipment at Home: Cane-Straight Prior Level of Functioning: Mobility: Independent;Without Assistive Device;Ambulate-In Community;Driving Fallen Within 6 Mos: No Have Help at Home?: Yes, there is help at home now Who assists you at home?: Friends/Family How often is assistance provided?: only because he needs something to do Oxygen at Home: No Activity at Home: Active;Driving Vision: Corrected with glasses Pain Assessment: Pain Rating Score #: 0 Follow-up for pain: No follow-up for pain indicated and patient agreed to proceed with treatment OBJECTIVE: At start of therapy session, patient found in patient bedside chair and with chair alarm on General Appearance: 81F in NAD LDA: IV's: Peripheral line Edema: No edema noted Vitals: VSS via monitor. No s/s of distress, SOB, dizziness. Mental Status/Cognition: 100% of simple 1 step commands. 50-75% of 2 step commands with increased time, repetition. Pt is easily forgetful in conversation, decreased STM. Level of Consciousness-Adult: Alert Orientation Level: Oriented X4 Cognition: Follows Commands-Consistent;Judgement-decreased;Safety awareness-decreased;Impulsive UE ROM: RUE: AROM WFL LUE: AROM WFL Strength: RUE: WFL LUE: WFL UE Tone RUE: no abnormal tone noted LUE: no abnormal tone noted Coordination: intact serial opposition for bilateral hands UE Proprioception RUE: WFL LUE: WFL UE Sensation RUE: intact LUE: intact Perception: Inattention/Neglect: Appears intact Visual/Motor Tracking: Able to track stimulus in all quads w/o difficulty Mobility: A gait belt and non-slip socks were used for all out of bed activity this date. Transfers: Sit to Stand: Minimal Assistance Stand to Sit: Minimal Assistance Functional Ambulation: Functional mobility of ambulation to sink/bathroom with Minimal assist using no device. Comments: Bedroom/bathroom distance Balance: Sitting - Static: Good Sitting - Dynamic: Good Standing - Static: Fair Standing - Dynamic: Fair;Fair - Activities of Daily Living Feeding: Set-up Oral Facial Hygiene: Minimal Assistance (oral/facial care standing at sink) Lower Body Dressing: Minimal Assistance (underwear) Splint Issued/Checked: none ACTIVITY TOLERANCE: Patient's activity tolerance: fair. Modified [place]: Current Modified Elizabeth Score: 4 TREATMENT / EDUCATION / INTERVENTIONS: While performing OT, Patient was instructed in:functional mobility training, self-care training, cognitive retraining, energy conservation, use of adaptive equipment, discharge planning, use [...] Formation With patient Patient will perform grooming with stand by assist Patient will perform lower extremity dressing with stand by assist Patient will transfer to standard toilet with stand by assist Patient will perform supine to/from sit with stand by assist Patient will transfer sit to stand with stand by assist Non Destructive Testing Scientist Goal(s): Patient to discharge to appropriate next level of inpatient care. Plan: Plan: ADL training Adaptive equipment training Cognitive retraining Cognitive stimulation Functional transfer training Functional balance training Endurance training Bed mobility training Energy conservation techniques Safety awareness Home exercise program training If patient is discharged from the facility, this note serves as a discharge summary if further occupational therapy visits did not occur. Refer to filed flowsheet for further details. Following therapy session, patient left in patient bedside chair, with chair alarm on, with call light within reach. * María Isaac MD - 08/17/2022 9:44 AM CDT Nephrology Progress Note 08/17/2022 9:45 AM Patient Name: Kirsty Rea (81 year old) Room Number: 515/01 Attending: Héctor Silva MD Hospital Day: 2 Subjective: Interval history: - No acute issues or events overnight; transferred from ICU to floor this AM - Continues to eat and drink well; says urination remains a problem similar to the way it is at home, did have bladder scan of 307 overnight - Started on clondine and hydralazine overnight for elevated blood pressures - Endorsing that her weakness has returned similar to when she initially presented to OSH, but not quite as intense and no N/V at this time Objective: Patient Vitals for the past 6 hrs: Temp Pulse Resp BP BP Method 08/17/22 0800 98.1 ??F (36.7 ??C) 75 20 143/66 Automatic 08/17/22 0417 -- 81 -- 172/60 Automatic 08/17/22 0411 -- 84 -- 156/61 Automatic 08/17/22 0359 -- 91 -- 157/80 Automatic Intake/Output Summary (Last 24 hours) at 08/17/2022 0945 Last data filed at 08/16/2022 1741 Gross per 24 hour Intake 2626.88 ml Output -- Net 2626.88 ml Physical Exam General: NAD. Sitting upright comfortably eating breakfast. HENT: NC/AT Eyes: Anicteric. Non-injected. Chest: CTAB. No crackles or wheezes. No increased work of breathing. Cardiovascular: RRR. No murmurs, rubs, or gallops Abdomen: Soft. NT/ND. Normal BS+. Extremities: No signs of clubbing, cyanosis, or edema. Skin: Warm. Dry. Neurological: AOx3; conversational and follows commands. Moves all extremities spontaneously without issue. No focal deficits. Psych: Appropriate mood and affect Medications ?? SCHEDULED MEDICATIONS: ?? 0.9% NaCl injection 3 mL, Intracatheter, q8h ?? cloNIDine (Catapres) tablet 0.2 mg, Oral, TID ?? heparin injection 5,000 Units, Subcutaneous, TID ?? hydrALAZINE (Apresoline) tablet 50 mg, Oral, TID ?? labetalol (Normodyne; Trandate) tablet 300 mg, Oral, q12h ?? polyethylene glycol 3350 (Miralax) packet 17 g, Oral, QDAY ?? senna (Senokot) tablet 17.2 mg, Oral, QDAY ?? [COMPLETED] hydrALAZINE (Apresoline) injection 20 mg, Intravenous, Now ?? [COMPLETED] potassium chloride (Klor-Con) packet 40 mEq, Oral, Once ?? [START ON 08/18/2022] NIFEdipine CR osmotic 24hr (Procardia-XL) tablet 90 mg, Oral, QDAY ?? CONTINUOUS MEDICATIONS: ?? PRN MEDICATIONS: ?? Or ?? 0.9% NaCl injection 1-10 mL, Intracatheter, PRN ?? hydrALAZINE (Apresoline) injection 10 mg, Intravenous, q20 min PRN ?? labetalol (Normodyne; Trandate) injection 10 mg, Intravenous, q15 min PRN Data Review Recent Labs Component Name 08/17/22 0426 08/16/224308/15/22 0339 WBC 6.3 6.8 6.8 HGB 7.1* 7.0* 8.4* HCT 20.8* 21.0* 24.8* PLTCOUNT 197 196 203 Recent Labs Component Name 08/17/22 0405 08/15/2233803/09/22 1312 SODIUM - - 140 POTASSIUM 3.0* - 3.9 CHLORIDE - - 109 CO2 16* - 21 BUN 58* - 65* CREATININE 4.22* - 2.74* CALCIUM 8.7 - 8.7 ALBUMIN - - 3.6 ALT - - 12 AST - - 14 GLUCOSE 105 - 99 - = values in this interval not displayed. Recent Labs Component Name 08/17/220 08/16/224 08/15/22 0339 INR 1.0 1.0 1.0 Microbiology: [facility] Imaging: [facility]ed [facility] Assessment and Plan: #TOÑA on CKD5 #Non-Anion Gap Metabolic Acidosis - Most likely prerenal in setting of vomiting, blood loss, diuretic use prior to presentation; other less likely etiologies include obstruction (does have some retention but urinary habits unchanged from home), infection (trace bacteria but no other signs to suggest) - Baseline Cr around 3.3 since 04/2022; CKD 2/2 HTN - Sees nephrology (Dr. Reyes) as outpatient; recent biopsy due to nephrotic range proteinuria that noted hypertensive nephrosclerosis, no acute findings - Has elevated urine potassium; may be contributing to hypokalemia while in patient - Unclear if 2/2 diuretic use prior to presentation or other etiology PLAN: - f/u urine creatinine and urine urea nitrogen to determine FENa, FEUrea - will add on albumin and total protein to evaluate protein gap and correct current calcium - consider SPEP/UPEP and immunofixation following evaluation of protein and albumin - Bladder Scans q8h to evaluate for urine production and retention; can consider straight cath if > 350cc on scans - Encourage PO intake - Avoid nephrotoxic medications and renally dose all medications that are given ? #Hypertension - Home Medications: HCTZ 12.5mg daily, Nifedipine ER 90mg, Labetalol 200mg BID - SBPs have been 130s-150s while here at [facility] PLAN: - Continue labetalol and home nifedipine - Monitor BP response while on clonidine and hydralazine as may not need both of these medications - Avoid diuretic use in setting of TOÑA on CKD ? #Normocytic Anemia - Hgb at presentation initially 8.4 (baseline) but dropped to 7.0 following IVF - Likely has component of anemia of chronic disease 2/2 renal dysfunction - Iron studies ordered while inpatient w/normal iron, although no ferritin PLAN: - f/u ferritin - Continue to monitor Hgb - Not previously on DARÍO; can give dose of 100U/kg once weekly - Transfuse for Hgb < 7.0 ? Patient will be seen and discussed with attending physician, Dr. Cintron. María Isaac MD Internal Medicine, PGY-3 08/17/2022 9:45 AM Associated attestation - Peggy Cintron MD - 08/17/2022 10:24 PM CDT Attending Addendum I have seen and examined the patient with the resident today. I agree with the findings and plan ofcare as documented by the resident. In addition I note: 81 yo female with advanced chronic kidney disease due to hypertensive nephrosclerosis per kidney biopsy (based on Dr. Reyes's note) and other medical problems as per resident's note,was transferredfrom OSH for further management of ICH. Noted recent nausea and vomiting, and took HCTZ at home. The patient asked about nifedipine and Procardia and answered Qs. She is alert and appears comfortable, CV - absent rub, and ext - absent edema. Urine output record is unavailable. [id number] kidney disease in the setting of recent ICH, likely a prerenal component and anemia might be contributing as well. Agree with supportive care, blood products transfusion, as indicated, and erythropoietin administration. Hypokalemia in advanced kidney disease is atypical and random urine potassium is high (>40). Recommend protein electrophoresis along with immunofixation, and follow-up with primary n ephrologist (Dr. Reyes) 2-4 weeks after discharge from the hospital. Please see resident (Dr. Isaac)'s note for further details. * Héctor Silva MD - 08/17/2022 9:37 AM CDT Images from the original note were not included. I spent 25 minutes all together, over 50% of which was spent on counseling and/or care coordination. Date of Service: 08/17/2022 This is a time-based encounter; independent of trainees or APPs. Héctor Silva MD Interval History:Kirsty Rea is a 81 year oldF who developed sudden on nausea and vomiting on 08/15. 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 Transferred to [facility] for further management. MRdoes not reveal underlying pathology. Consult nephrology for TOÑA on CKD. Transfer to floor. ?? Physical Exam: Alert and Oriented, Nl Language, No Neglect EOMI, PERRL, Facial Expression Symmetric, VFF Motor: 5/5 and Symmetric Sensation: Symmetric to LT ?? Plan: Further Testing: As needed to evaluate neurological changes Secondary Prevention: SBP goal 130 to 150 Recovery: TBD LOS 2 Multidisciplinary rounds were held at 930am and the patient's care and recovery plan were reviewed and developed with the assembled team. Problem List Intracranial hemorrhage, nontraumatic (CMS/HCC) POA: Unknown See Resident note for the remaining problem specific plan. MEDICATIONS FOR CURRENT ENCOUNTER: SCHEDULED MEDICATIONS: 0.9% NaCl injection 3 mL, Intracatheter, q8h cloNIDine (Catapres) tablet 0.2 mg, Oral, TID hydrALAZINE (Apresoline) tablet 50 mg, Oral, TID labetalol (Normodyne; Trandate) tablet 300 mg, Oral, q12h polyethylene glycol 3350 (Miralax) packet 17 g, Oral, QDAY senna (Senokot) tablet 17.2 mg, Oral, QDAY [COMPLETED] hydrALAZINE (Apresoline) injection 20 mg, Intravenous, Now [COMPLETED] potassium chloride (Klor-Con) packet 40 mEq, Oral, Once ?? [START ON 08/18/2022] NIFEdipine CR osmotic 24hr (Procardia-XL) tablet 90 mg, Oral, QDAY ?? CONTINUOUS MEDICATIONS: PRN MEDICATIONS: Or 0.9% NaCl injection 1-10 mL, Intracatheter, PRN hydrALAZINE (Apresoline) injection 10 mg, Intravenous, q20 min PRN ?? labetalol (Normodyne; Trandate) injection 10 mg, Intravenous, q15 min PRN Patient Vitals for the past 24 hrs: Temp Pulse Resp BP 08/17/22 0800 98.1 ??F (36.7 ??C) 75 20 143/66 08/17/22 0417 -- 81 -- 172/60 08/17/22 0411 -- 84 -- 156/61 08/17/22 0359 -- 91 -- 157/80 08/17/22 0336 98 ??F (36.7 ??C) -- -- -- 08/17/22 0230 -- -- -- 174/68 08/17/22 0155 -- 60 -- 163/69 08/17/22 0130 -- 70 -- 164/68 08/17/22 0037 -- 86 -- 167/58 08/17/22 0008 98.2 ??F (36.8 ??C) 80 18 163/63 08/16/222117 97.7 ??F (36.5 ??C) 55 16 150/73 08/16/221999 97.6 ??F (36.4 ??C) 71 12 125/86 08/16/22 1900 -- 75 23 169/74 08/16/22 1730 -- 80 21 172/81 08/16/22 1720 -- 85 17 178/90 08/16/22 1700 -- 81 13 161/77 08/16/22 1630 -- 79 14 159/92 08/16/22 1600 -- 76 20 155/74 08/16/22 1531 98.8 ??F (37.1 ??C) -- -- -- 08/16/22 1530 -- 77 18 149/70 08/16/22 1500 -- 80 22 156/79 08/16/22 1430 -- 73 21 149/82 08/16/22 1400 -- 77 11 146/91 08/16/22 1330 -- 75 12 147/68 08/16/22 1300 -- 81 18 140/74 08/16/22 1230 -- 75 17 146/63 08/16/22 1203 98.5 ??F (36.9 ??C) -- -- -- 08/16/22 1200 -- 69 16 149/59 08/16/22 1130 -- 75 16 144/59 08/16/22 1100 -- 85 11 154/98 08/16/22 1015 -- 78 9 -- 08/16/22 1000 -- 81 29 140/76 08/16/22 0949 97.6 ??F (36.4 ??C) -- -- -- Recent Labs Component Name 08/17/2240408/16/224308/15/2233803/09/22 1312 01/04/20 1515 NA 134* 139 139 - 141 CL 105 106 108* - 102 CO2 16* 18* 19* - 27 BUN 58* 56* 55* - 47* CREATININE 4.22* 4.27* 3.74* - 2.1* CALCIUM 8.7 8.5 9.6 - 9.3 PHOS 4.4 5.2* - - 4.1 - = values in this interval not displayed. Recent Labs Component Name 08/17/2242508/16/224308/15/22338 WBC 6.3 6.8 6.8 RBC 2.57* 2.50* 3.00* HGB 7.1* 7.0* 8.4* HCT 20.8* 21.0* 24.8* No results for input(s): CHOL, TRIG, HDL, VLDL, LDL, LDLCALC, LDLDIRECT, CHOLHDL in the last 45871 hours. Recent Labs Component Name 08/16/2243 HGBA1C 5.4 EAG 108 Recent Labs Component Name 08/17/2242508/16/224308/15/22338 PLTCOUNT 197 196 203 * Christal Bautista, PT - 08/17/2022 9:25 AM CDT [facility] Physical Medicine and Rehabilitation Physical Therapy Initial Evaluation Note Patient: Kirsty Rea [facility] Record Number: [id number] Date of : 1940 Age: [age] year old PPE worn by staff: gloves;mask - surgical Discharge Recommendation: Patient will benefit from intense 3 hour per day multidisciplinary inpatient therapies due to regain independence s/p CVA.. In addition to the 1:1 evaluation of the patient, additional eval time was spent completing the chart review prior to the assessment, completing the multidisciplinary plan of care and education plan post evaluation and communicating results of the eval to other treatment team members. OT contacted regarding patient status and/or discharge plan. Physician Orders: Evaluation and Treat PRECAUTIONS: DIAGNOSIS: Patient Active Problem List: Localized morphea Osteoporosis Other symptoms and signs involving the musculoskeletal system Hearing loss Hypokalemia Adverse effect of carbonic-anhydrase inhibitors, benzothiadiazides and other diuretics, initial encounter Other specified health status Hypertension Other amnesia Chronic kidney disease, stage 2 (mild) Anemia in stage 2 chronic kidney disease Encounter for routine gynecological examination Neuroma of foot Acute bronchitis Acute kidney failure (CMS/HCC) Allergic urticaria Benign hypertensive heart disease 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 failure Cervicalgia Chronic kidney disease, stage 3 (moderate) Contact dermatitis and other eczema Disturbance of skin sensation Dizziness and giddiness Other malaise and fatigue Hypertensive chronic kidney disease with stage 1 through stage 4 chronic kidney disease, or unspecified chronic kidney disease Hypertonicity of bladder Hypertrophy of breast Need for prophylactic vaccination and inoculation against influenza Localized edema Mixed hyperlipidemia Generalized muscle weakness Neoplasm of uncertain behavior of skin Affections of shoulder region Other proteinuria Other specified diffuse disease of connective tissue (CMS/HCC) Other specified disorder of nervous system Pain in joint, shoulder region Pain in thoracic spine Thoracic or lumbosacral neuritis or radiculitis Senile osteoporosis Congenital anomaly of integument Disorder of skin and subcutaneous tissue Intracranial hemorrhage, nontraumatic (CMS/HCC) Past Medical History: Diagnosis Date ??? CKD (chronic kidney disease) stage 3, GFR 30-59 ml/min (CMS/HCC) proteinuria ??? HTN (hypertension), benign ??? Hyperparathyroid bone disease (CMS/HCC) s/p surgery ??? Morphea ??? Osteopenia SUBJECTIVE: Subjective: Reports a little SOB, but no pain. Reports SOB is not typical for her. PATIENT GOALS: Home Situation: Type of Residence: Private Residence Lives with:: Son Steps to Enter: No Home Structure: One Story Primary Bedroom: First Floor Primary Bathroom: First Floor Bathroom : Walk in Shower Equipment at Home: Cane-Straight Prior Level of Functioning: Mobility: Independent;Without Assistive Device;Ambulate-In Community;Driving Fallen Within 6 Mos: No Have Help at Home?: Yes, there is help at home now Who assists you at home?: Friends/Family (onlyl with cooking, shopping) How often is assistance provided?: only because he needs something to do Oxygen at Home: No Activity at Home: Active;Driving Vision: Corrected with glasses Pain Assessment: Pain Rating Score #: 0 Follow-up for pain: No follow-up for pain indicated and patient agreed to proceed with treatment OBJECTIVE: At start of therapy session, patient found in bed and with bed alarm on. General Appearance: upright, NAD LDAs: IV's: Peripheral line Edema: no edema noted in bilateral lower extremities Vitals: (*Assess the 3 levels of oxygen saturations both for room air and 02 unless rest on room air is 88% or less). Rest BP: 143/71 HR: 72 Sp02 Sp02 98% Room Air L O2 Ex/Gait/Activity Without 02 BP: HR: Sp02 Room Air Ex/Gait/Activity With 02 BP: HR: Sp02 L O2 Post Activity BP: 139/65 HR: 72 Sp02 Sp02 98% L O2 Room Air Observations: Mental Status/Cognition: Orientation Level: Oriented X4 Patient follows commands and participates very well with therapy, but questionable higher level cognition and memory. Refer to speech and OT for higher level cognitive information. ROM: RLE: AROM WFL LLE: AROM WFL Strength: RLE:WNL LLE: WNL Tone: RLE: no abnormal tone noted LLE: no abnormal tone noted Coordination: RLE: WNL LLE: mildly decreased rapid toe tapping Mobility: A gait belt and non-slip socks were used for all out of bed activity this date. Bed Mobility: Rolling: Activity Does Not Occur Supine to Sit: Complete [place];Stand By Assist with HOB in semi-fowlers position Transfers: Sit to Stand: Minimal Assistance Stand to Sit: Minimal Assistance Gait: Distance Ambulated: 30 FEET Ambulation: Assistive Device: Gait Belt;None Ambulation: Level of Assistance: Moderate Assistance (min to mod) Ambulation: Gait Deviations: Deedee - Decreased;Path Deviation Comments: Balance: Balance Scales/Tests Used: Sitting: Static/Dynamic;Standing: Static/Dynamic Sitting - Static: Good Sitting - Dynamic: Good - Standing - Static: Fair Standing - Dynamic: Fair - ACTIVITY TOLERANCE: Patient's activity tolerance: good TREATMENT/INTERVENTIONS: evaluation, bed mobility training, transfer training, gait training, balance activities and monitoring of vitals Modified [place]: Current Modified [place] Score: 4 EDUCATION: While performing PT, Patient was instructed in:functional mobility training, energy conservation, discharge planning, use of call light Presented to patient who demonstrates Good understanding of instructions given. INFORMED CONSENT TO TREATMENT: Plan of care including recommended therapy, goals and frequency, discussed with patient who understands and agrees to proceed. ASSESSMENT: Patient would benefit from additional Physical Therapy sessions to achieve the following functionalgoals to enhance independence. Short Term Goals: Goal Formation With patient Patient will transfer sit to/from stand with stand by assist Patient will transfer bed to/from chair with stand by assist Patient will ambulate 75 feet with minimal assist without AD Non Destructive Testing Scientist Goal(s): Patient to discharge to appropriate next level of inpatient care. Equipment Issued: gait belt Plan: Plan: Gait training Transfer training Balance training If patient is discharged from the facility, this note serves as a discharge summary if further physical therapy visits did not occur. Refer to filed flowsheet for further details. Following therapy session, patient left in patient bedside chair, with chair alarm on, with call light within reach, with RNFauzia, allan, with therapy cues visible on white board, and OT arrival. * Grover Alexis - 08/17/2022 8:59 AM CDT Stroke Service Daily Progress Note Kirsty Rea Age: [age] year old Date of : 1940 Date of Admission: 08/15/2022 Hospital Day: 2 Subjective Patient is a 81 year old white female with a PMH of HTN and CKD3 who presented to OSH on 08/15/22 with generalized weakness and nausea/vomiting, transfered to 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 ICH score was 2 (infratentorial, age) on arrival. Interval History: Patient was hypertensive overnight requiring IV antihypertensives with blood pressures ranging [id number]/[id number]-77s. Patient remained afebrile (Tm - 98.8) Objective Patient Vitals for the past 6 hrs: Temp Pulse Resp BP BP Method 08/17/22 1200 98.1 ??F (36.7 ??C) 74 20 138/75 Automatic 08/17/22 0800 98.1 ??F (36.7 ??C) 75 20 143/66 Automatic Exam: Heart: RRR, 2/6 systolic murmur heard at L lower sternal border Lungs: CTAB, normal effort on room air Cortical Function Mental Status Awake, alert, follows commands Orientation Person, place, time, and situation Language Fluency intact, comprehension intact, repetition intact Visual [place] Intact bilaterally to confrontation Neglect No visual neglect noted, no tactile neglect noted Cranial Nerves II Pupils 2 mm and bilaterally reactive to light. Fundoscopic exam not performed. VIII Hearing intact b/l to voice. III/IV/ Extraocular muscles intact. No diplopia, ptosis, nystagmus or convergence abnormalities noted. IX/X Palate elevated symmetrically without phonation abnormalities noted. V Not examined. No subjective deficits. XI Head turning and shoulder shrug are intact. VII No facial palsy noted. XII Tongue is midline with normal movements and no atrophy noted. Motor Function Movement No abnormalities noted Bulk No abnormalities noted Tone No abnormalities noted Proximal Upper Distal Upper Proximal Lower Distal Lower Right 5/5 5/5 5/5 5/5 Left 5/5 5/5 5/5 5/5 Sensory Light Touch Symmetric and intact bilaterally Gait Deferred Imaging: MRI showed: 1.Redemonstration of small right pontine hemorrhage with mild surrounding vasogenic edema. No significant mass effect. No supratentorial hydrocephalus. 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 3.Otherwise, no large arterial occlusions or significant stenoses identified in the head. TTE Stage 1 diastolic dysfunction EKG Sinus arrhythmia Labs: HbA1c 5.4 WBC 6.3 Hb 7.0 Na 134 K 3.0 CO2 16 BUN 58 Cr 4.22 Assessment Patient is a 81 year old white female with a PMH of HTN and CKD3 who presented to OSH on 08/15/22 with generalized weakness and nausea/vomiting, transfered to 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 Stroke Type: Hemorrhagic Stroke Mechanism: HTN vs AVM Plan #pontine hemorrhagic stroke - no additional stroke w/u pending - Continue Q 4 neurochecks; NIHSS Q daily - NSGY signed off - BP Goal: SBP 130-150 - Swallow Evaluation: within normal limits - PT/OT Evaluation: recommended acute rehab (3hrs per day) - DVT prophylaxis: started hepatin 5000u tid 08/17 #HTN -Home meds: labetalol 200mg PO bid and nifedipine 90mg PO bid -Goal SBP 130-150 -currently on labetalol 300mg bid, nifedipine 90mg bid, clonidine 0.2mg tid, hydralazine 50mg tid -hydralazine 10mg IV PRN, labetalol 10mg IV PRN #TOÑA on CKD5 #non-gap metabolic acidosis -Seen by nephrology today. -urine studies pending -avoid diuretics #anemia -likely anemia of chronic disease 2/2/ CKD - Hb 7.0 today s/p fluids - Hb 8.4 on presentation. - Iron panel wnl. -Transfuse 1u pRBCs for Hb <7.0 Grover Alexis MS3 * Mohsen Nichole RN - 08/16/2022 11:03 PM CDT Problem: Fall Risk Goal: Fall risk and fall related injury risk are minimized (interventions related to the fall risk can be found in the flowsheet documentation) Outcome: Progressing Problem: Neurological Deficit Goal: Neurological status is stable or improving Outcome: Progressing Problem: Hemodynamic Status/Cardiac Output Goal: Patient has stable vital signs and fluid balance Outcome: Progressing Problem: Oxygenation/Respiratory Function Goal: Respiratory rate/effort will be within specified limits Outcome: Progressing Problem: Mobility Goal: Patient's mobility/activity will be maintained as optimum level for age, diagnosis and physical limitations Outcome: Progressing Goal: Continuum of care needs are further met through referral to outpatient services when appropriate. Outcome: Progressing Goal: Patient reports the ability to perform Activities of Daily Living. Outcome: Progressing Problem: Communication Impairment/Dysarthria Goal: Ability to express needs and understand communication Outcome: Progressing Problem: Nutrition Goal: Nutritional status is improving Outcome: Progressing Problem: Aspiration Precautions Goal: Patient's risk of aspiration is minimized Outcome: Progressing Problem: Glycemic Control Goal: Clinical indication of glycemia balance is achieved Outcome: Progressing Problem: Knowledge Deficit,Education,Discharge Plan Goal: The patient/family will understand cerebrovascular disease and its symptoms, treatment and management Outcome: Progressing Problem: Swallowing Goal: STG - Patient will tolerate therapeutic trials of recommended consistency without clincial signs and symptoms of aspiration Outcome: Progressing Goal: STG - Patient will follow recommended swallowing strategies Outcome: Progressing Problem: Swallowing Goal: STG - Patient will follow recommended swallowing strategies Outcome: Progressing * Senait Del Rosario RN - 08/16/2022 1:35 PM CDT Problem: Fall Risk Goal: Fall risk and fall related injury risk are minimized (interventions related to the fall risk can be found in the flowsheet documentation) Outcome: Progressing Problem: Neurological Deficit Goal: Neurological status is stable or improving Outcome: Progressing Problem: Hemodynamic Status/Cardiac Output Goal: Patient has stable vital signs and fluid balance Outcome: Progressing Problem: Oxygenation/Respiratory Function Goal: Respiratory rate/effort will be within specified limits Outcome: Progressing Problem: Mobility Goal: Patient's mobility/activity will be maintained as optimum level for age, diagnosis and physical limitations Outcome: Progressing Goal: Continuum of care needs are further met through referral to outpatient services when appropriate. Outcome: Progressing Goal: Patient reports the ability to perform Activities of Daily Living. Outcome: Progressing Problem: Communication Impairment/Dysarthria Goal: Ability to express needs and understand communication Outcome: Progressing Problem: Nutrition Goal: Nutritional status is improving Outcome: Progressing Problem: Aspiration Precautions Goal: Patient's risk of aspiration is minimized Outcome: Progressing Problem: Glycemic Control Goal: Clinical indication of glycemia balance is achieved Outcome: Progressing Problem: Knowledge Deficit,Education,Discharge Plan Goal: The patient/family will understand cerebrovascular disease and its symptoms, treatment and management Outcome: Progressing Problem: Swallowing Goal: STG - Patient will tolerate therapeutic trials of recommended consistency without clincial signs and symptoms of aspiration Outcome: Progressing Goal: STG - Patient will follow recommended swallowing strategies Outcome: Progressing * Jaclyn Sutton APRN-CNP - 08/16/2022 11:07 AM CDT NEUROSURGERY PROGRESS NOTE At the current time, Kirsty Rea does not require any further inpatient neurosurgical care. Patients exam and imaging have remained stable. Please have the patient follow up with Dr Cornell in 3 months with an MRI brain wwo contrast for imaging. Our office will schedule their follow up appt. Neurosurgery follow up information also placed in [facility] discharge navigator. NINA Lindsey 08/16/2022 11:08 AM * Chidi Martins - 08/16/2022 9:13 AM CDT New Stroke patient to caseload Chart reviewed Stroke Type:?Hemorrhagic Post acute recommendation: Undetermined Not medically ready to transition to next level of care Patient is currently undergoing medical interventions/evaluations Stroke Bomb Squad Commander is assigned and following to assist with social needs as they present.?? Payer/Plan Subscriber Name Rel Member # Group # MEDICARE - MEDICARE P* KIRSTY REA [id number] [address] [employer] - [employer] MEDICAR* KIRSTY REA [id number] [address] [address] Please refer to CM note for additional information. NIMO Kwok MBA Bomb Squad Commander [phone] 08/16/2022 9:14 AM * Héctor Silva MD - 08/16/2022 8:13 AM CDT Images from the original note were not included. I have seen and examined the patient. I spent 35 minutes all together, over 50% of which was spent on counseling and/or care coordination. Date of Service: 08/16/2022 This is a time-based encounter; independent of trainees or APPs. Héctor Silva MD Interval History:Kirsty Rea is a 81 year oldF who developed sudden on nausea and vomiting on 08/15. 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 Transferred to [facility] for further management. MRdoes not reveal underlying pathology. Consult nephrology for TOÑA on CKD. Transfer to floor. ?? Physical Exam: Alert and Oriented, Nl Language, No Neglect EOMI, PERRL, Facial Expression Symmetric, VFF Motor: 5/5 and Symmetric Sensation: Symmetric to LT ?? Plan: Further Testing: As needed to evaluate neurological changes Secondary Prevention: SBP goal 130 to 150 Recovery: TBD LOS 1 Multidisciplinary rounds were held at 930am and the patient's care and recovery plan were reviewed and developed with the assembled team. Problem List Intracranial hemorrhage, nontraumatic (CMS/HCC) POA: Unknown See Resident note for the remaining problem specific plan. MEDICATIONS FOR CURRENT ENCOUNTER: ?? SCHEDULED MEDICATIONS: ?? 0.9% NaCl injection 3 mL, Intracatheter, q8h ?? gadoterate meglumine (Dotarem/Clariscan) injection, Intravenous, Contrast - Once ?? [COMPLETED] potassium chloride 20 mEq in 100 mL SW bolus, Intravenous, Once ?? CONTINUOUS MEDICATIONS: ?? isolyte-S pH 7.4 infusion, Intravenous, Continuous ?? niCARdipine (Cardene) 20 mg in 0.9% NaCl 200 mL infusion, Intravenous, Continuous ?? PRN MEDICATIONS: ?? Or ?? 0.9% NaCl injection 1-10 mL, Intracatheter, PRN ?? hydrALAZINE (Apresoline) injection 10 mg, Intravenous, q20 min PRN ?? labetalol (Normodyne; Trandate) injection 10 mg, Intravenous, q15 min PRN Patient Vitals for the past 24 hrs: Temp Pulse Resp BP 08/16/22 0700 -- 84 17 146/71 08/16/22 0645 -- 77 17 136/56 08/16/22 0630 -- 75 10 137/61 08/16/22 0615 -- 73 10 133/59 08/16/22 0600 -- 72 14 132/56 08/16/22 0545 -- 79 9 133/54 08/16/22 0530 -- 79 10 134/54 08/16/22 0515 -- 80 9 133/63 08/16/22 0500 -- 80 17 134/53 08/16/22 0445 -- 79 17 131/57 08/16/22 0432 -- -- -- 119/51 08/16/22 0430 -- 78 15 119/51 08/16/22 0415 -- 79 20 129/49 08/16/22 0400 98.5 ??F (36.9 ??C) 80 17 120/51 08/16/22 0345 -- 80 15 117/52 08/16/22 0330 -- 78 17 127/51 08/16/22 0315 -- 78 15 127/53 08/16/22 0300 -- 85 17 132/77 08/16/22 0245 -- 79 16 137/52 08/16/22 0230 -- 75 15 129/48 08/16/22 0215 -- 79 15 123/52 08/16/22 0200 -- 73 16 134/51 08/16/22 0145 -- 80 14 137/53 08/16/22 0130 -- 77 17 124/61 08/16/22 0115 -- 75 12 126/55 08/16/22 0106 -- -- -- 128/52 08/16/22 0100 -- 78 13 128/52 08/16/22 0046 -- -- -- 127/58 08/16/22 0045 -- 80 13 127/58 08/16/22 0030 -- 75 15 135/52 08/16/22 0015 -- 78 16 136/55 08/16/22 0000 -- 76 11 133/61 08/15/22 2345 -- 75 16 126/52 08/15/22 2330 -- 75 13 131/55 08/15/22 2315 -- 76 14 129/55 08/15/22 2300 -- 75 16 136/52 08/15/22 2245 -- 76 12 142/67 08/15/22 2145 -- 77 9 129/48 08/15/22 2130 -- 77 19 132/53 08/15/225 -- 71 16 125/49 08/15/22 2100 -- 73 17 127/53 08/15/222044 -- 74 13 119/57 08/15/222029 -- 72 15 120/55 08/15/222014 -- 71 14 119/53 08/15/221999 98 ??F (36.7 ??C) 76 23 124/52 08/15/221944 -- 71 15 119/49 08/15/221941 -- -- -- 128/61 08/15/22 1930 -- 72 15 128/61 08/15/22 191 -- 77 20 128/56 08/15/22 1900 -- 72 14 122/52 08/15/22 1845 -- 73 21 131/51 08/15/22 1830 -- 75 19 128/68 08/15/22 1815 -- 77 19 133/48 08/15/22 1800 -- 80 12 131/57 08/15/22 1745 -- 69 14 128/51 08/15/22 1730 -- 71 11 126/60 08/15/22 1715 -- 72 17 134/61 08/15/22 1700 -- 73 17 124/44 08/15/22 1645 -- 74 13 134/52 08/15/22 1630 -- 79 12 130/53 08/15/22 1615 -- 75 15 136/48 08/15/22 1600 -- 75 15 130/71 08/15/22 1545 -- 76 19 134/64 08/15/22 1531 98.1 ??F (36.7 ??C) -- -- -- 08/15/22 1530 -- 76 9 128/54 08/15/22 1515 -- 79 (!) 7 132/57 08/15/22 1500 -- 76 10 135/53 08/15/22 1445 -- 75 9 134/58 08/15/22 1430 -- 74 (!) 8 130/58 08/15/22 1415 -- 73 17 128/61 08/15/22 1400 -- 73 14 135/58 08/15/22 1345 -- 71 16 136/56 08/15/22 1330 -- 73 16 129/62 08/15/22 1327 -- -- -- 123/75 08/15/22 1315 -- 77 (!) 8 123/75 08/15/22 1300 -- 70 15 129/53 08/15/22 1230 -- 70 15 132/55 08/15/22 1215 -- 73 16 133/54 08/15/22 1200 -- 74 14 133/51 08/15/22 1145 -- 81 15 138/60 08/15/22 1140 98.6 ??F (37 ??C) -- -- -- 08/15/22 1139 -- -- -- 134/51 08/15/22 1130 -- 75 15 134/51 08/15/22 1115 -- 73 16 128/50 08/15/22 1100 -- 75 17 130/64 08/15/22 1045 -- 74 29 136/61 08/15/22 1030 -- 73 14 131/51 08/15/22 1015 -- 71 10 139/67 08/15/22 1008 97.7 ??F (36.5 ??C) -- -- -- 08/15/22 1005 -- -- -- 139/59 08/15/22 1000 -- 69 (!) 7 139/59 08/15/22 0945 -- 70 (!) 8 128/50 08/15/22 0930 -- 75 10 135/61 08/15/22 0915 -- 76 (!) 7 137/60 08/15/22 0900 -- 75 14 139/49 08/15/22 0830 -- 80 15 151/70 08/15/22 0815 -- 82 (!) 7 143/60 Recent Labs Component Name 08/16/224308/15/229 03/09/22 1312 01/04/20 1515 NA 139 139 - 141 CL 106 108* - 102 CO2 18* 19* 21 27 BUN 56* 55* 65* 47* CREATININE 4.27* 3.74* 2.74* 2.1* CALCIUM 8.5 9.6 8.7 9.3 PHOS 5.2* - - 4.1 Recent Labs Component Name 08/16/224308/15/2233803/09/22 1312 WBC 6.8 6.8 5.1 RBC 2.50* 3.00* 3.01* HGB 7.0* 8.4* 8.5* HCT 21.0* 24.8* 26.6* No results for input(s): CHOL, TRIG, HDL, VLDL, LDL, LDLCALC, LDLDIRECT, CHOLHDL in the last 96708 hours. No results for input(s): HGBA1C, A1C, [id number], EAG in the last 28850 hours. Recent Labs Component Name 08/16/22 0044 08/15/22 0339 03/09/22 1312 PLTCOUNT [id number] * Jessica Encarnacion MD - 08/16/2022 8:07 AM CDT Images from the original note were not included. Neurology Critical Care Progress Note Kirsty Rea Age: [age] year old Date of : 1940 Date of Admission: 08/15/2022 Hospital Day: 1 Subjective HPI: Per Dr. Tomas's Note 81 y/o F with past medical history of HTN, CKD3, Morphea and osteopenia transferred from [facility] to [facility] ICU for pontine intraparenchymal hemorrhage. Patient reported developing generalized weakness and nausa/vomiting. She had several episodes of vomiting but denies ALDANA,CP, speech changes, vision or sensory changes. Reports photosensitivity. 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 Admitted to Neuro ICU for further monitoring ICU Timeline: 08/15: NAEON. BP 120-140 on nicardipine gtt. Will not start oral BP meds until know cardiac function as on odd home med regimen. No new complaints. 08/16: nephrology team consulted, started on home labetalol 200mg BID, started Senna+miralax Objective Patient Vitals for the past 24 hrs: BP Temp Temp src Pulse Resp SpO2 08/16/22 1600 155/74 -- -- 76 20 94 % 08/16/22 1531 -- 98.8 ??F (37.1 ??C) Oral -- -- -- 08/16/22 1530 149/70 -- -- 77 18 95 % 08/16/22 1500 156/79 -- -- 80 22 94 % 08/16/22 1430 149/82 -- -- 73 21 96 % 08/16/22 1400 146/91 -- -- 77 11 96 % 08/16/22 1330 147/68 -- -- 75 12 94 % 08/16/22 1300 140/74 -- -- 81 18 96 % 08/16/22 1230 146/63 -- -- 75 17 94 % 08/16/22 1203 -- 98.5 ??F (36.9 ??C) Axillary -- -- -- 08/16/22 1200 149/59 -- -- 69 16 96 % 08/16/22 1130 144/59 -- -- 75 16 95 % 08/16/22 1100 154/98 -- -- 85 11 96 % 08/16/22 1015 -- -- -- 78 9 -- 08/16/22 1000 140/76 -- -- 81 29 92 % 08/16/22 0949 -- 97.6 ??F (36.4 ??C) Axillary -- -- -- 08/16/22 0915 138/67 -- -- 79 13 93 % 08/16/22 0900 134/64 -- -- 80 10 93 % 08/16/22 0845 151/65 -- -- 77 13 91 % 08/16/22 0815 145/84 -- -- 84 14 92 % 08/16/22 0800 137/91 -- -- 78 (!) 8 (!) 76 % 08/16/22 0755 -- 97.7 ??F (36.5 ??C) Oral -- -- -- 08/16/22 0730 138/93 -- -- 80 24 95 % 08/16/22 0715 120/68 -- -- 80 16 94 % 08/16/22 0700 146/71 -- -- 84 17 96 % 08/16/22 0645 136/56 -- -- 77 17 94 % 08/16/22 0630 137/61 -- -- 75 10 94 % 08/16/22 0615 133/59 -- -- 73 10 94 % 08/16/22 0600 132/56 -- -- 72 14 94 % 08/16/22 0545 133/54 -- -- 79 9 94 % 08/16/22 0530 134/54 -- -- 79 10 96 % 08/16/22 0515 133/63 -- -- 80 9 95 % 08/16/22 0500 134/53 -- -- 80 17 96 % 08/16/22 0445 131/57 -- -- 79 17 93 % 08/16/22 0432 119/51 -- -- -- -- -- 08/16/22 0430 119/51 -- -- 78 15 (!) 89 % 08/16/22 0415 129/49 -- -- 79 20 90 % 08/16/22 0400 120/51 98.5 ??F (36.9 ??C) Oral 80 17 90 % 08/16/22 0345 117/52 -- -- 80 15 90 % 08/16/22 0330 127/51 -- -- 78 17 90 % 08/16/22 0315 127/53 -- -- 78 15 (!) 88 % 08/16/22 0300 132/77 -- -- 85 17 93 % 08/16/22 0245 137/52 -- -- 79 16 91 % 08/16/22 0230 129/48 -- -- 75 15 (!) 89 % 08/16/22 0215 123/52 -- -- 79 15 90 % 08/16/22 0200 134/51 -- -- 73 16 91 % 08/16/22 0145 137/53 -- -- 80 14 94 % 08/16/22 0130 124/61 -- -- 77 17 91 % 08/16/22 0115 126/55 -- -- 75 12 92 % 08/16/22 0106 128/52 -- -- -- -- -- 08/16/22 0100 128/52 -- -- 78 13 (!) 89 % 08/16/22 0046 127/58 -- -- -- -- -- 08/16/22 0045 127/58 -- -- 80 13 93 % 08/16/22 0030 135/52 -- -- 75 15 93 % 08/16/22 0015 136/55 -- -- 78 16 92 % 08/16/22 0000 133/61 -- -- 76 11 95 % 08/15/22 2345 126/52 -- -- 75 16 91 % 08/15/22 2330 131/55 -- -- 75 13 92 % 08/15/22 2315 129/55 -- -- 76 14 91 % 08/15/22 2300 136/52 -- -- 75 16 95 % 08/15/22 2245 142/67 -- -- 76 12 94 % 08/15/22 2145 129/48 -- -- 77 9 94 % 08/15/222129 132/53 -- -- 77 19 95 % 08/15/222114 125/49 -- -- 71 16 91 % 08/15/222099 127/53 -- -- 73 17 95 % 08/15/222044 119/57 -- -- 74 13 94 % 08/15/222029 120/55 -- -- 72 15 91 % 08/15/222014 119/53 -- -- 71 14 91 % 08/15/221999 124/52 98 ??F (36.7 ??C) Oral 76 23 90 % 08/15/22 194 119/49 -- -- 71 15 94 % 08/15/221941 128/61 -- -- -- -- -- 08/15/22 193 128/61 -- -- 72 15 96 % 08/15/22 1915 128/56 -- -- 77 20 95 % 08/15/22 1900 122/52 -- -- 72 14 93 % 08/15/22 1845 131/51 -- -- 73 21 96 % 08/15/22 1830 128/68 -- -- 75 19 95 % 08/15/22 1815 133/48 -- -- 77 19 96 % 08/15/22 1800 131/57 -- -- 80 12 98 % 08/15/22 1745 128/51 -- -- 69 14 95 % 08/15/22 1730 126/60 -- -- 71 11 97 % 08/15/22 1715 134/61 -- -- 72 17 95 % Intake/Output Summary (Last 24 hours) at 08/16/2022 1700 Last data filed at 08/16/2022 1200 Gross per 24 hour Intake 3072.5 ml Output 875 ml Net 2197.5 ml Exam: Mental status: Awake, alert, Follows commands. Oriented x 3 Language: Fluency intact, comprehension intact, repetition intact. Visual quesada: Intact bilaterally to confrontation. Neglect: No appreciable visual or tactile neglect noted. CN 3 - 12: Intact Normal tone and bulk No abnormal movements. ?? Objective strength: ?? Proximal Upper Distal Upper Proximal Lower Distal Lower Right 5/5 5/5 5/5 5/5 Left 5/5 5/5 5/5 5/5 ?? Muscle Stretch Reflexes ?? BI TRI BR PAT ACH TOES Right 3 3 3 3 3 Down Left 3 3 3 3 3 Down ?? Bilateral suprapatellar reflex + ?? Sensory LT: symmetric and intact . ?? Cerebellar ?? FNF Right Intact Left Intact ?? Gait Deferred Labs: Reviewed. Intracranial hemorrhage, nontraumatic (CMS/HCC) POA: Unknown Imaging Data: Assessment 81 y/o F w/ PMH of HTN and CKD3, Morphea and osteopenia transferred from [facility] to [facility] Neuro ICU for pontine intraparenchymal hemorrhage. ?? Stroke Type: . Hemorrhagic Stroke Mechanism : Hypertension v vascular abnormality Plan Neurological # Pontine Hemorrhage - Stat CT head for any change in neurological examination - Head of bed > 30?? - Avoid hypoglycemia, hyponatremia, and hyperthermia - Neurosurgery consulted - Na goals: normonatremia Core Measures (bleed) tPA administration: no Anti-thrombotic: holding Statin: N/A DVT prophylaxis: SCDs Swallow Evaluation: passed PT/OT Evaluation: pending Smoking cessation: will admissions counselor Cardiovascular Pulse Min: 61 Max: 85, BP Min: 116/85 Max: 174/66 # HTN - holding home HCTZ 12.5 qday, Nifedipine ER 90 mg qday - Start home labetalol 200mg BID - Restart remaining medications as appropriate ?? Respiratory CXR (08/16): Minimal left basilar atelectasis is present. - No active issues - Aspiration precautions - Elevate head of bed - Maintain oxygen saturation > 92% - Monitor for respiratory distress Renal/Electrolytes Intake/Output Summary (Last 24 hours) at 08/16/2022 1700 Last data filed at 08/16/2022 1200 Gross per 24 hour Intake 3072.5 ml Output 875 ml Net 2197.5 ml # TOÑA on CKD # CKD 3 - Cr 2.7 on 02/2022 - Cr 3.4 on admission - UA, u-lytes and straight cath orders - Nephrology consult, reccs appreciated - Monitor intake and output - Replete electrolytes as needed Infectious Disease Temp (24hrs), Av.2 ??F (36.8 ??C), Min:97.6 ??F (36.4 ??C), Max:98.8 ??F (37.1 ??C) - Monitor for fevers - Maria culture if febrile Gastrointestinal - [facility] swallow evaluation:passed - Diet:cardiac - GI ppx: not indicated - Last BM: prior to admission - BM regimen: sennakot + miralax Endocrine HbA1C 6.2 No active issues Hematology Recent Labs Component Name 08/16/22 0044 WBC 6.8 HGB 7.0* HCT 21.0* PLTCOUNT 196 # Anemia of chronic disease - F/U IM reccs - F/U Iron panel - Hb 7 from 8.4 - F/U Hb - Transfuse if Hb < 7 - DVT ppx: SCDs Musculoskeletal No active issues Disposition - PT/OT pending DVT prophylaxis: SCDs Invasive lines: PIVx2 Case findings discussed with Dr. Yesi Encarnacion MD PGY4 - Neurology Resident Associated attestation - Joe Patel MD - 08/17/2022 9:49 AM CDT Neurocritical Care Attending I reviewed the history, laboratory tests, imaging, and other investigations. I also examined the patient independently. I agree with the resident's notes. We formulated the diagnosis and plan together. Please refer to this note for any revisions and additional details. Exam: BP 143/66 Pulse 75 Temp 98.1 ??F (36.7 ??C) (Oral) Resp 20 Ht 1.727 m (5' 8 ) Wt 76 kg (167 lb 8.8 oz) SpO2 99% Follows commands Pupils equal and reactive No head trauma Neck supple CBS, no wheezing, rales, crackles Regular heart rhythm Abdomen is soft, non-tender Good peripheral pulses Groin okay Patient Active Problem List: Localized morphea Osteoporosis Other symptoms and signs involving the musculoskeletal system Hearing loss Hypokalemia Adverse effect of carbonic-anhydrase inhibitors, benzothiadiazides and other diuretics, initial encounter Other specified health status Hypertension Other amnesia Chronic kidney disease, stage 2 (mild) Anemia in stage 2 chronic kidney disease Encounter for routine gynecological examination Neuroma of foot Acute bronchitis Acute kidney failure (CMS/HCC) Allergic urticaria Benign hypertensive heart disease 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 failure Cervicalgia Chronic kidney disease, stage 3 (moderate) Contact dermatitis and other eczema Disturbance of skin sensation Dizziness and giddiness Other malaise and fatigue Hypertensive chronic kidney disease with stage 1 through stage 4 chronic kidney disease, or unspecified chronic kidney disease Hypertonicity of bladder Hypertrophy of breast Need for prophylactic vaccination and inoculation against influenza Localized edema Mixed hyperlipidemia Generalized muscle weakness Neoplasm of uncertain behavior of skin Affections of shoulder region Other proteinuria 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 The patient is criticallyill with vital organ impairment or failure with high probability of imminent or life-threatening deterioration in the patient's condition. Total critical care time = 40 minutes The time involved in teaching, review of educational materials, and performance of separately billable procedures were not included in the time quoted here. Time spent with family meeting was included only if the patient was incapable of providing the necessary information or participating in decision-making of critical decisions regarding the direction of the patient's care. * José Nolan MD - 08/15/2022 9:33 PM CDT Stroke Plan of care senior care specialist called regarding concern for giving patient contrast for Brain MRI [facility] since her crcl is low. Per daytime stroke/neurocritical care rounds and neuroICU resident, she can get the contrast. She has received plenty of IV fluids today providing some level of kidney protection again contrast injury. Benefits out weight the risks. José Nolan MD Neurology resident * Senait Del Rosario RN - 08/15/2022 2:19 PM CDT Problem: Neurological Deficit Goal: Neurological status is stable or improving Outcome: Progressing Problem: Nutrition Goal: Nutritional status is improving Outcome: Progressing Problem: Knowledge Deficit,Education,Discharge Plan Goal: The patient/family will understand cerebrovascular disease and its symptoms, treatment and management Outcome: Progressing * Lexi Adair SLP - 08/15/2022 10:06 AM CDT [facility] Physical Medicine and Rehabilitation Bedside Swallow Assessment Patient: Kirsty [facility] Record Number: [id number] Date of : 1940 Age: [age] year old Patient Active Problem List: Localized morphea Osteoporosis Other symptoms and signs involving the musculoskeletal system Hearing loss Hypokalemia Adverse effect of carbonic-anhydrase inhibitors, benzothiadiazides and other diuretics, initial encounter Other specified health status Hypertension Other amnesia Chronic kidney disease, stage 2 (mild) Anemia in stage 2 chronic kidney disease Encounter for routine gynecological examination Neuroma of foot Acute bronchitis Acute kidney failure (CMS/HCC) Allergic urticaria Benign hypertensive heart disease 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 failure Cervicalgia Chronic kidney disease, stage 3 (moderate) Contact dermatitis and other eczema Disturbance of skin sensation Dizziness and giddiness Other malaise and fatigue Hypertensive chronic kidney disease with stage 1 through stage 4 chronic kidney disease, or unspecified chronic kidney disease Hypertonicity of bladder Hypertrophy of breast Need for prophylactic vaccination and inoculation against influenza Localized edema Mixed hyperlipidemia Generalized muscle weakness Neoplasm of uncertain behavior of skin Affections of shoulder region Other proteinuria Other specified diffuse disease of connective tissue (CMS/HCC) Other specified disorder of nervous system Pain in joint, shoulder region Pain in thoracic spine Thoracic or lumbosacral neuritis or radiculitis Senile osteoporosis Congenital anomaly of integument Disorder of skin and subcutaneous tissue Intracranial hemorrhage, nontraumatic (CMS/HCC) Past Medical History: Diagnosis Date ??? CKD (chronic kidney disease) stage 3, GFR 30-59 ml/min ([facility] [place]) proteinuria ??? HTN (hypertension), benign ??? 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 Morphea ??? Osteopenia In addition to the 1:1 evaluation of the patient, additional eval time was spent completing the chart review prior to the assessment, completing the multidisciplinary plan of care and education plan post evaluation and communicating results of the eval to other treatment team members. PPE: PPE worn by staff: gloves;mask - surgical Impressions: No clinical signs of oropharyngeal dysphagia. Patient presented with trials of ice chips, thin liquids, puree, and solid consistencies. Cough noted with large straw sip of thin liquids. No additional signs of aspiration observed. Recommend regular solids and thin liquids. [facility] will continue to follow to ensure diet tolerance. Recommendations: Diet Liquids Recommendation: Thin/ Thin (0) Diet Solids Recommendation: Regular/Regular (7) Recommended Form of Meds: Whole;As Tolerated Compensatory Swallowing Strategies: 90 Degrees elevation for all oral intake;Small bites/sips;Eat/Feed slowly;Alternate solids and liquids Recommended Tests/Consults: Recommendations: Dysphagia Treatment Discharge Recommendations: Deferred Speech therapy is recommended to improve swallow function. SUBJECTIVE: Patient Goals: eat and drink Pain Assessment: Pain Rating Score #: 0 Follow-up for pain: No follow-up for pain indicated and patient agreed to proceed with treatment OBJECTIVE: Level of Consciousness: alert Orientation Level: oriented x 4 Positioning: Upright in bed Respiratory Status: room air Oral/Motor: Dentition: Dentures;Upper;Lower Oral Hygiene : Xerostomic (dry mouth) Labial/Facial: Within Functional Limits Tongue: Within Functional Limits Vocal Quality: Within Functional Limits Velopharyngeal Status: Within Functional Limits Oral Motor Coordination: Within Functional Limits Controls Secretions: Yes Swallow Trials: Ice chips: Presentation: Spoon-Assisted Oral: Within Functional Limits Pharyngeal: Within Functional LImits Thin Liquid: Presentation: Straw-Assisted;Cup-Self Fed Oral: Within Functional Limits Pharyngeal: Cough - Immediate Puree: Presentation: Spoon-Assisted Oral: Within Functional Limits Pharyngeal: Within Functional LImits Solid: Presentation: Self-Fed Oral: Within Normal Limits Pharyngeal: Within Functional Limits Assessment: Risk For Aspiration: Mild Primary Diagnostic Impression - Oral: No dysphagia Primary Diagnostic Impression - Pharyngeal: Mild NSS Results: Do the results of the NSS match the HARBOR[facility]STER eval results?: Matched Education/Interventions: While performing [facility], Patient was instructed in: results of swallow evaluation and diet/liquid recommendations. Patient demonstrated Good understanding of instructions given. Nurse contacted regarding results of swallow evaluation and recommendations. INFORMED CONSENT TO TREATMENT: Plan of care including recommended therapy, goals and frequency, discussed with patient who understands and agrees to proceed. Short Term Goals Patient will tolerate recommended food and liquid consistencies without clinical signs of aspiration., Patient will follow recommended swallowing strategies., Ongoing Intermediate Goal (s): Patient to discharge to appropriate next level of inpatient care. Plan: dysphagia treatment Thank you, Lexi ANTUNEZ, [facility] Speech Language Pathologist * Lorena Gonzalez RN - 08/15/2022 10:02 AM CDT Stroke Psychosocial Assessment Case Management Screen completed, welcome letter given Basic Needs Assessment (BNA) Score: 6 Met with patient and daughter Lives with: Son (Son lives with the patient. Severe etoh abuse by the son.) Diagnosis: The primary encounter diagnosis was Intracranial hemorrhage, nontraumatic (CMS/HCC). A diagnosis of Hemorrhagic stroke (CMS/HCC) was also pertinent to this visit. Contacts/Support: Extended Emergency Contact Information Primary Emergency Contact: Agnes Monroy Relation: Daughter Secondary Emergency Contact: Stacy Sheppard Relation: Daughter Insurance: Payer/Plan Subscriber Name Rel Member # Group # MEDICARE - MEDICARE P* KIRSTY REA Self [id number] [address] AET[employer] - A[employer] MEDICAR* KIRSTY REA Self [id number] [address] [address] Prior level of functioning: ESRD and tired, hiding it for the last two years. More forgetfully. Soiling her pants x 1 year. Evaluated by several DR. Cognition: A/0x3. Mental Health History: Dtr of an alcoholic. Son is an alcoholic. Emotional person, cries at the drop of a hat. Sister difficult. May have depression per dtr. The thinking is very cloudy. Noted that the Neprologist told the family it is d/t kidney fxn. Other complaints r/t kidney function. Noted that the kidneys were fxn at 40%. Had the covid vaccine: pfzier: 04/21/22-1 dose, most recent. Noted more then 1 dose. Unsure of the flu shot vaccine. 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 Alcohol/Drug/Tobacco: quit smoking 30 years ago. etoh-wine, not for a long time. No drugs Stacy the sister is the person who the patient listens to. Information provided by the Agnes Monroy (Daughter) [phone]. Prior Stroke: none Co-morbidities: Esrd 40% function. Medication Needs: none Established Resources: housing. Community Resource Contact Information: none SW Referral: yes If patient requires HHC at discharge, he/she requests: Anticipated level of care provider: None Equipment at Home: none Current DME Provider: none Recommended/Needed DME: tbd, PT/OT. PCP: Diana Mao MD If no PCP, action taken: noted. Transportation: family Coping Strengths: Fiesty Short Term Goals: Discharge from the hospital Intermediate Goals: Live in an assisted living faciility Patient and Family Questions/Concerns: Living situation with the son. Discharge Plan: Anticipated level of care at discharge: Home, Acute Rehab Facility Anticipated Discharge Date: 08/17/22 Lorena [facility]LEY [facility] Access Control SpecialistHome Theater Expert: [phone] 08/15/2022 * Lorena Gonzalez RN - 08/15/2022 9:44 AM CDT Call attempt to the patient dtr to complete the assessment. Utr. Lorena [facility] Access Control SpecialistHome Theater Expert: [phone] 08/15/2022 * Valentine Tomas MD - 08/15/2022 9:05 AM CDT Images from the original note were not included. Neurology Critical Care Progress Note Kirsty Rea Age: [age] year old Date of : 1940 Date of Admission: 08/15/2022 Hospital Day: 0 Subjective HPI: 81 y/o F with past medical history of HTN, CKD3, Morphea and osteopenia transferred from [facility] ICU for pontine intraparenchymal hemorrhage. Patient reported developing generalized weakness and nausa/vomiting. She had several episodes of vomiting but denies ALDANA,CP, speech changes, vision or sensory changes. Reports photosensitivity. 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 Admitted to Neuro ICU for further monitoring ICU Timeline: 08/15: NAEON. BP 120-140 on nicardipine gtt. Will not start oral BP meds until know cardiac function as on odd home med regimen. No new complaints. Objective Patient Vitals for the past 24 hrs: BP Temp Temp src Pulse Resp SpO2 Height Weight 08/15/2230 151/70 -- -- 80 15 98 % -- -- 08/15/22 08 143/60 -- -- 82 (!) 7 98 % -- -- 08/15/22811 -- 97.7 ??F (36.5 ??C) Axillary -- -- -- -- -- 08/15/22 0810 143/62 -- -- -- -- -- -- -- 08/15/22 08 143/62 -- -- 71 13 95 % -- -- 08/15/22 0745 144/61 -- -- 73 12 95 % -- -- 08/15/22 0730 137/60 -- -- 68 16 94 % -- -- 08/15/22 0715 134/63 -- -- 73 16 93 % -- -- 08/15/22 07 137/53 -- -- 75 13 94 % -- -- 08/15/22 0645 132/64 -- -- 74 15 95 % -- -- 08/15/22 0630 139/59 -- -- 73 14 96 % -- -- 08/15/22 0615 135/54 -- -- 73 12 97 % -- -- 08/15/22 0600 116/85 -- -- 73 14 95 % -- -- 08/15/22 0545 144/67 -- -- 79 16 95 % -- -- 08/15/22 0530 146/62 -- -- 76 17 96 % -- -- 08/15/22 0515 142/63 -- -- 73 14 95 % -- -- 08/15/22 0500 150/61 -- -- 67 14 96 % -- -- 08/15/22 0445 171/74 -- -- 61 13 96 % -- -- 08/15/22 0430 174/66 -- -- 64 12 94 % -- -- 08/15/22 0415 170/78 -- -- 68 12 96 % -- -- 08/15/22 0400 161/71 98.7 ??F (37.1 ??C) Oral 62 14 96 % -- -- 08/15/22 0345 156/89 -- -- 76 10 98 % -- -- 08/15/22 0330 135/74 -- -- 70 13 91 % -- -- 08/15/22 0315 (!) 143/118 98.6 ??F (37 ??C) Oral 75 12 97 % 5' 8 (1.727 m) 167 lb 8.8 oz (76 kg) Intake/Output Summary (Last 24 hours) at 08/15/2022 0911 Last data filed at 08/15/2022 0600 Gross per 24 hour Intake 80.75 ml Output -- Net 80.75 ml Exam: Mental status: Awake, alert, Follows commands. Oriented x 3 Language: Fluency intact, comprehension intact, repetition intact. Visual quesada: Intact bilaterally to confrontation. Neglect: No appreciable visual or tactile neglect noted. CN 3 - 12: Intact Normal tone and bulk No abnormal movements. ?? Objective strength: ?? Proximal Upper Distal Upper Proximal Lower Distal Lower Right 5/5 5/5 5/5 5/5 Left 5/5 5/5 5/5 5/5 ?? Muscle Stretch Reflexes ?? BI TRI BR PAT ACH TOES Right 3 3 3 3 3 Down Left 3 3 3 3 3 Down ?? Bilateral suprapatellar reflex + ?? Sensory LT: symmetric and intact . ?? Cerebellar ?? FNF Right Intact Left Intact ?? Gait Deferred Labs: Reviewed. Intracranial hemorrhage, nontraumatic (CMS/HCC) POA: Unknown Imaging Data: Assessment Kirsty Rea is a 81 y/o F with past medical history of HTN, CKD3, Morphea and osteopenia transferred from [facility] to [facility] ICU for pontine intraparenchymal hemorrhage.OSH CTH wo showed pontine IPH measuring 9*8*10 mm without mass effect or hydrocephalus. CTA not obtained due to significant CKD. ?? Stroke Type: . Hemorrhagic Stroke Mechanism : Hypertension v vascular abnormality Plan Neurological Hilary IPH - Pending MRI Brain wwo and MRA w - Stat CT head for any change in neurological examination - Head of bed > 30?? - Avoid hypoglycemia, hyponatremia, and hyperthermia - Neurosurgery consulted - Na goals: normonatremia Core Measures (bleed) tPA administration: no Anti-thrombotic: holding Statin: N/A DVT prophylaxis: SCds Swallow Evaluation: passed PT/OT Evaluation: pending Smoking cessation: will admissions counselor Cardiovascular Pulse Min: 61 Max: 82, BP Min: 116/85 Max: 174/66 HTN - holding home Labetalol 200 mg BID, HCTZ 12.5 qday, Nifedipine ER 90 mg qday - will restart after echo ?? Blood pressure goals and PRNs: - BP goal to be achieved via PO med titration: SBP < 140, DBP < 90 - Active BP parameter orders were reviewed as of 08/15/22. - Active PRN IVP orders as of 08/15/22: hydralazine/labetalol IV prn for SBP > 160, DBP > 110. - Active IV drip order as of 08/15/22: Nicardipine - Active notify MD BP order as of 08/15/22: call MD if BP >160/90 despite the above - Maintain MAP ~ 65 Respiratory No active issues - Aspiration precautions - Elevate head of bed - Maintain oxygen saturation > 92% - Monitor for respiratory distress Renal/Electrolytes Intake/Output Summary (Last 24 hours) at 08/15/2022 0911 Last data filed at 08/15/2022 0600 Gross per 24 hour Intake 80.75 ml Output -- Net 80.75 ml #TOÑA on CKD #CKD 3 - Cr 2.7 on 02/2022 - Cr 3.4 on admission - Started Isolyte @ 75cc ?? - Monitor intake and output - Replete electrolytes as needed Infectious Disease Temp (24hrs), Av.3 ??F (36.8 ??C), Min:97.7 ??F (36.5 ??C), Max:98.7 ??F (37.1 ??C) No active issues - Monitor for fevers - Maria culture if febrile Gastrointestinal No active issues - [facility] swallow evaluation:passed - Diet:cardiac - GI ppx: not indicated - Last BM: prior to admission - BM regimen: None Endocrine No active issues - f/u A1C - Accuchecks + SSI Hematology Recent Labs Component Name 08/15/22 0339 WBC 6.8 HGB 8.4* HCT 24.8* PLTCOUNT 203 No active issues DVT ppx: SCDs Musculoskeletal No active issues Disposition - PT/OT pending DVT prophylaxis: SCDs Invasive lines: PIVx2 Case findings discussed with Dr. Tiara Tomas MD Neurology Resident. [facility]. Associated attestation - Amos Menjivar II, DO - 08/15/2022 10:49 PM CDT The patient was seen and examined on 08/15/2022 during multidisciplinary critical care rounds. I have reviewed the electronic ICU flow sheets, available laboratory, and radiographic data. This information may be found in the patient's electronic record. I have reviewed and interpreted the pertinent radiographic studies myself. I have checked the patient's clinical course and confirmed the physical exam performed by Dr. Tomas and the proposed treatment plans; these reflect our active treatments of the patient. I have discussed the treatment plans for the current problems with the Critical Care team and the nursing staff caring for the patient. The critical care team has discussed these plans with the primary team and other consulting services. The Critical Care team has also discussed these plans with the patient and family members, as availability permits. ASSESSMENT and TREATMENT The patient's currently active medical problems as assessed by [facility] team include the following diagnoses and their corresponding treatments: PONTINE HEMORRHAGE: small ventral hemorrhage, stroke service to study further Htn: SBP goals 120 -140 mmHg nicardipine gtt for tight control, on labetalol, HCTZ and Nifedipine for BP control at home, would defer restarting these unless need for better blood pressure control. The ECHO is likely to provide some helpful insights into a refined selection of antihypertensives TROPONEMIA: small elevation of troponin CKD: Cr 3.4 significantly impaired. Will try to some historical information about this problem. PRE-RENAL AZOTEMIA: > 20:1 given the rise in Cr she likely need some additional fluids Amos Menjivar DO PhD Sales Applications Engineer Department of Anesthesiology and Critical Care Chief Anesthesia Critical Care * Dominique Pino, PT - 08/15/2022 8:14 AM CDT [facility] Department of Physical Medicine & Rehabilitation Progress Note Patient: Kirsty Rea Med Record Number: [id number] Date of : 1940 Age: [age] year old 08/15/22 0813 Missed Visit Missed Visit Bedrest Please increase activity orders as appropriate for skilled therapy to be initiated and progressed. documented in this encounter H&P Notes * Loly Aleman MD - 08/25/2022 11:27 AM CDT INTERVENTIONAL NEPHROLOGY HISTORY AND PHYSICAL Patient Name: Kirsty Rea HISTORY OF PRESENT ILLNESS: 81 year old??female??w/ hx of HTN,??CKD stage IV-V,??morphea, who presented to [facility] for worsening kidney function, cre peaked to 4.65 on 08/19. requiring hemodialysis. REVIEW OF SYSTEMS: Negative for f/c Negative for c/p PAST MEDICAL HISTORY: Past Medical History: Diagnosis Date ??? CKD (chronic kidney disease) stage 3, GFR 30-59 ml/min (CMS/HCC) proteinuria ??? HTN (hypertension), benign ??? Hyperparathyroid bone disease (CMS/HCC) s/p surgery ??? Morphea ??? Osteopenia PAST SURGICAL HISTORY: as above in PMH plus: Past Surgical History: Procedure Laterality Date ??? Appendectomy ??? Breast Reduction ??? Cholecystectomy, Laparoscopic ??? HX FRACTURE TX ??? OOPHORECTOMY 1971 ??? Parathyroidectomy 1999 SOCIAL HISTORY: Social History Socioeconomic History ??? Marital status: Tobacco Use ??? Smoking status: Former Packs/day: 1.00 Types: Cigarettes Start date: 10/31/1965 Quit date: 10/31/1983 Years since quittin.8 ??? Smokeless tobacco: Never Vaping Use ??? Vaping Use: Never used Substance and Sexual Activity ??? Alcohol use: Yes Alcohol/week: 0.8 standard drinks ??? Drug use: No ??? Sexual activity: Not Currently Partners: Male FAMILY HISTORY: Family History Problem Relation Name Age of Onset ??? Hypertension Father ??? Hypertension Brother ALLERGIES: Allergies Allergen Reactions ??? Ramipril Other Other reaction(s): Other (See Comments) Kidney Damage Kidney Damage MEDS: Reviewed VITALS: Vitals: 08/25/22 1015 08/25/22 1030 08/25/22 1045 08/25/22 1100 BP: 131/59 128/62 121/61 136/68 Pulse: 82 80 78 80 Resp: Temp: SpO2: 95% 96% 94% 95% Weight: Height: Estimated body mass index is 28.16 kg/m?? as calculated from the following: Height as of this encounter: 1.727 m (5' 7.99 ). Weight as of this encounter: 84 kg (185 lb 3 oz). PHYSICAL EXAM: Gen in nad, on HFNC s1s2 rrr + edema LAB: Recent Labs Component Name 08/25/2233708/24/22 0231 08/23/22 0422 08/22/22 0747 08/21/22 0213 HGB 7.9* 7.2* 7.5* 8.2* 7.5* WBC 8.9 9.1 8.6 5.4 3.7 HCT 22.7* 21.5* 22.3* 24.3* 22.3* MCV 81.7 83.0 85.4 84.7 83.5 PT 12.3 12.3 13.0 12.2 11.9* INR 0.9 0.9 1.0 0.9 0.9 ) Recent Labs Component Name 08/25/2233708/24/22 1636 08/24/22 0231 08/23/22 1629 08/23/22 0422 BUN 23 50* 41* 69* 64* CREATININE 1.83* 3.08* 2.72* 4.06* 3.99* NA 141 136 135* 132* 132* CL 99 99 97* 102 99 CO2 29 23 21* 15* 15* CALCIUM 8.5 8.6 8.6 8.8 9.1 PHOS 1.6* 4.5 4.7 8.0* 7.8* Recent Labs Component Name 08/25/22 0338 08/24/22 1636 08/24/22 0231 08/23/22 1629 08/23/22 0422 08/17/22 0405 03/09/22 1312 ALB 2.7* 2.6* 2.8* 2.8* 2.9* - - ALT - - - - - - 12 AST - - - - - - 14 - = values in this interval not displayed. Recent Labs Component Name 08/22/22 1801 08/22/22 0816 08/21/22 1930 [id number] 16* 16* 17* ASSESSMENT: 81 year old??female??w/ hx of HTN,??CKD stage IV-V,??morphea, who presented to [facility] for worsening kidney function, cre peaked to 4.65 on 08/19. requiring hemodialysis. PLAN: will proceed tunneled permcath placement today Labs reviewed. Loly Aleman MD Nephrology Fellow #[phone] * Loly Aleman MD - 08/23/2022 9:54 AM CDT INTERVENTIONAL NEPHROLOGY HISTORY AND PHYSICAL Patient Name: Kirsty Rea HISTORY OF PRESENT ILLNESS: 81 year old??female??w/ hx of HTN,??CKD stage IV-V,??morphea, who presented to [facility] on??08/15/22. Worsened kidney function, cre peaked to 4.65 on 08/19. REVIEW OF SYSTEMS: Negative for f/c Negative for c/p PAST MEDICAL HISTORY: Past Medical History: Diagnosis Date ??? CKD (chronic kidney disease) stage 3, GFR 30-59 ml/min ([facility]) proteinuria ??? HTN (hypertension), benign ??? 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 Morphea ??? Osteopenia PAST SURGICAL HISTORY: as above in H plus: Past Surgical History: Procedure Laterality Date ??? Appendectomy ??? Breast Reduction ??? Cholecystectomy, Laparoscopic ??? HX FRACTURE TX ??? OOPHORECTOMY 1971 ??? Parathyroidectomy 1999 SOCIAL HISTORY: Social History Socioeconomic History ??? Marital status: Tobacco Use ??? Smoking status: Former Packs/day: 1.00 Types: Cigarettes Start date: 10/31/1965 Quit date: 10/31/1983 Years since quittin.8 ??? Smokeless tobacco: Never Vaping Use ??? Vaping Use: Never used Substance and Sexual Activity ??? Alcohol use: Yes Alcohol/week: 0.8 standard drinks ??? Drug use: No ??? Sexual activity: Not Currently Partners: Male FAMILY HISTORY: Family History Problem Relation Name Age of Onset ??? Hypertension Father ??? Hypertension Brother ALLERGIES: Allergies Allergen Reactions ??? Ramipril Other Other reaction(s): Other (See Comments) Kidney Damage Kidney Damage MEDS: Reviewed VITALS: Vitals: 08/23/22 0845 08/23/22 0900 08/23/22 0915 08/23/22 0930 BP: 128/59 138/68 Pulse: 73 78 75 73 Resp: 20 25 19 22 Temp: SpO2: 93% 93% 93% 94% Weight: Height: Estimated body mass index is 26.82 kg/m?? as calculated from the following: Height as of this encounter: 1.727 m (5' 8 ). Weight as of this encounter: 80 kg (176 lb 5.9 oz). PHYSICAL EXAM: Gen in nad s1s2 rrr No edema LAB: Recent Labs Component Name 08/23/22 0422 08/22/22 0747 08/21/22 0213 08/20/22 0250 08/19/22 1056 HGB 7.5* 8.2* 7.5* 7.3* 7.6* WBC 8.6 5.4 3.7 4.0 4.6 HCT 22.3* 24.3* 22.3* 21.8* 22.1* MCV 85.4 84.7 83.5 83.5 83.4 PT 13.0 12.2 11.9* 13.3 13.1 INR 1.0 0.9 0.9 1.0 1.0 ) Recent Labs Component Name 08/23/22 0422 08/22/22 1528 08/22/22 0747 08/21/22 1825 08/21/22 0213 08/20/22 0250 BUN 64* 64* 63* 59* 63* 66* CREATININE 3.99* 3.92* 4.00* 4.05* 4.29* 4.57* NA 132* 130* 129* 127* 127* 127* CL 99 98 99 101 101 98 CO2 15* 16* 17* 16* 15* 16* CALCIUM 9.1 9.3 9.1 8.8 8.6 8.2* PHOS 7.8* 7.2* 6.6* - 5.8* 6.1* Recent Labs Component Name 08/23/22 0422 08/22/22 1528 08/22/22 0747 08/17/22 0405 03/09/22 1312 ALB 2.9* 3.1* 3.0* 2.8* - ALT - - - - 12 AST - - - - 14 Recent Labs Component Name 08/22/22 1801 08/22/22 0816 08/21/22 1930 [id number] 16* 16* 17* ASSESSMENT: Kirsty Rea is a 81 year old??female??w/ hx of HTN,??CKD stage IV-V,??morphea, who presented to [facility] on??08/15/22. Worsened kidney function, cre peaked to 4.65 on 08/19. PLAN: Pt is here for tunneled permcath placement Loly Aleman MD Nephrology Fellow #[phone] * Earnestine Brand MD - 08/22/2022 6:01 PM CDT MICU History & Physical Note 08/22/2022 6:02 PM Patient: Kirsty Rea (:1940) Room: [facility]/01 Admit Date: 08/15/2022. Hospital Day: 7 CC: Weakness HPI: Mrs Rea 81 year old??female??w/ hx of HTN,??CKD stage IV-V,??morphea, who presented to [facility] on??08/15/22 as OSH transferred for management of pontine intraparenchimal bleed. Patient presented to OSH for nausea, vomiting and weakness. CTH at OSH showed pontine IPH measuring 9*8*10 mm without mass effect. Patient BP has been elevated during hospitalization and required IV anti- HTN. Alsopatient developed worsening dysphagia and she was choking on her PO medications and she was not able to tolerate PO intake so she missed PO anti- HTN meds. 08/22 the patient was found to be somnolent and with worsening CP and SOB, rapid response called and patient escalated to Non rebreather. Troponin/EKG were normal. Renal function test was unchanged. ABGs re-assuring. CTH with no acute changes. Her ABGs this AM were not concerning. Due to concerns of aortic dissection CT chest ordered which showed increased effusion on the right and concerning foraspiration pneumonia with no signs of dissection. Speech eval recommended NPO and patient missed her PO HTN meds. Nephrology consulted for worsening kidney function and worsening mental status and they will proceed with non-emergent HD. Today, patient transferred to the ICU for better control of her BP with drips, worsening mental status, and worsening hypoxia. On physical exam patient was AOx3 awake, alert and resonds to quesitons coherently. Her SpO2 was 92% on the non-rebreazer and other vitals were normal. Her labs today were significant for improving hyponatremia (130), High anion gap metabolic acidosis bicarb 16, A 2/2 to uremia with Cr 3.92, elevated hosphorus 7.2. Past Medical History Past Medical History: Diagnosis Date ??? CKD (chronic kidney disease) stage 3, GFR 30-59 ml/min (CMS/HCC) proteinuria ??? HTN (hypertension), benign ??? Hyperparathyroid bone disease (CMS/HCC) s/p surgery ??? Morphea ??? Osteopenia Past Surgical History Past Surgical History: Procedure Laterality Date ??? Appendectomy ??? Breast Reduction ??? Cholecystectomy, Laparoscopic ??? HX FRACTURE TX ??? OOPHORECTOMY 1971 ??? Parathyroidectomy 1999 Social History Social History Tobacco Use ??? Smoking status: Former Packs/day: 1.00 Types: Cigarettes Start date: 10/31/1965 Quit date: 10/31/1983 Years since quittin.8 ??? Smokeless tobacco: Never Vaping Use ??? Vaping Use: Never used Substance Use Topics ??? Alcohol use: Yes Alcohol/week: 0.8 standard drinks ??? Drug use: No Family History Family History Problem Relation Name Age of Onset ??? Hypertension Father ??? Hypertension Brother Allergies Allergies Allergen Reactions ??? Ramipril Other Other reaction(s): Other (See Comments) Kidney Damage Kidney Damage Home Medications Current Outpatient Medications Medication Instructions ??? acetaminophen (TYLENOL) 500 mg, Oral, EVERY 4 HOURS PRN ??? Glycerin (OASIS TEARS PLUS PF OP) Ophthalmic ??? hydroCHLOROthiazide (MICROZIDE) 12.5 mg, Oral, DAILY ??? labetalol (NORMODYNE; TRANDATE) 200 MG tablet 1 tablet, 2 TIMES DAILY ??? labetalol (NORMODYNE; TRANDATE) 200 mg, Oral, 2 TIMES DAILY ??? Multiple Vitamins-Minerals (ICAPS AREDS 2 PO) Oral ??? NIFEdipine CR osmotic 24hr (PROCARDIA-XL) 90 MG tablet TAKE 1 TABLET ONE TIME EACH DAY ??? olopatadine (PATADAY) 0.2 % ophthalmic solution 1 drop, Each Eye, DAILY ??? [place]-3 Fatty Acids (FISH OIL) 1200 MG Oral ??? oxybutynin (DITROPAN) 5 MG tablet TAKE 1 TABLET BY MOUTH EVERY DAY ??? RESTASIS 0.05 % ophthalmic suspension No dose, route, or frequency recorded. ??? triamcinolone acetonide (KENALOG) 0.1 % cream APPLY TO RASH ON BACK AND BODY TWICE A DAY NEEDED. AVOID FACE. ??? XIIDRA 5 % opthalmic solution No dose, route, or frequency recorded. Review of Systems positives are in bold; negatives are in italics Constitutional: fevers, chills, sweats, fatigue, weight loss/gain, chronic pain HEENT: head trauma, vision/hearing/voice changes, eye/ear/throat pain, nasal discharge, dysphagia, sores, ulcers, sinus pain Respiratory: cough, hemoptysis, sputum, BLANDON, dyspnea at rest, PND, wheezing Cardiovascular: chest pain/discomfort, palpitations, lower extremity edema, calf/leg pain Gastrointestinal: nausea/vomiting, diarrhea, constipation, melena, abdominal pain Genitourinary: dysuria, urgency, frequency, incontinence, hematuria Integument: rash, ulcers, itching Hematologic/lymphatic: easy bruising, bleeding Musculoskeletal: myalgias, arthralgias Neurological: headaches, dizziness, numbness, tingling, seizures Behavioral/Psych: anxiety, depression, memory problems Endocrine: polyuria, polydipsia, polyphagia, heat/cold intolerance Objective: Vitals: 08/22/22 1555 08/22/22 1620 08/22/22 1700 08/22/22 1730 BP: 171/89 (!) 188/80 (!) 180/80 (!) 182/70 Pulse: 90 Resp: 24 Temp: SpO2: 97% Weight: Height: Intake/Output Summary (Last 24 hours) at 08/22/2022 1802 Last data filed at 08/22/2022 1645 Gross per 24 hour Intake 900 ml Output 1650 ml Net -750 ml O2 %: 100 % Physical Exam General - NAD, afebrile, non cachectic HEENT - NC/AT, EOMI, clear conjunctivae, throat without erythema or exudate, moist mucous membranes Neck - Supple, no LAD, no JVD Chest - Diffuse wheezes, no crackles. CV - RRR no murmurs, radial and DP pulses 2/4, good capillary refill Abdomen - Soft, NT/ND, +BS, no organomegaly Musculoskeletal - Moves all four extremities Extremities - No c/c/e Skin - No rashes, lesions or jaundice Neurologic - A&O x 3, no focal neurological deficits Psych - Appropriate mood and affect Labs: CBC: Recent Labs Component Name 08/22/22 0747 08/21/22 0213 08/20/22 0250 WBC 5.4 3.7 4.0 HGB 8.2* 7.5* 7.3* HCT 24.3* 22.3* 21.8* BMP: Recent Labs Component Name 08/22/22 1528 08/22/22 0747 08/21/22 1825 08/21/22 0213 NA 130* 129* 127* 127* CL 98 99 101 101 CO2 16* 17* 16* 15* BUN 64* 63* 59* 63* CREATININE 3.92* 4.00* 4.05* 4.29* CALCIUM 9.3 9.1 8.8 8.6 PHOS 7.2* 6.6* - 5.8* Hepatic: Recent Labs Component Name 08/22/22 1528 08/22/22 0747 08/17/22 0405 03/09/22 1312 ALT - - - 12 AST - - - 14 PROT - - 5.1* - ALB 3.1* 3.0* 2.8* - ALKPHOS - - - 72 Coagulation: Recent Labs Component Name 08/22/22 0747 08/21/22 0213 08/20/22 0250 PT 12.2 11.9* 13.3 INR 0.9 0.9 1.0 Cardiac Markers: Recent Labs Component Name 08/22/22 0747 08/21/22 2340 08/21/22 1655 TROPONINI 0.037* 0.058* 0.054* ABGs: No results for input(s): PHART, PO2ART, KUS4ZSN, BEART in the last 33075 hours. Micro: Microbiology Results (Displays last 21 days for this encounter ONLY) Procedure Component Value - Date/Time CULTURE SPUTUM+GRAM STAIN [[id number]] Lab Status: No result Specimen: Microbiology from Sputum MRSA DNA PCR [[id number]] Lab Status: No result Specimen: Microbiology from Nasal Imaging: CT CHEST WO CONTRAST Result Date: 08/22/2022 IMPRESSION: 1.Bilateral, moderate right and small left, pleural effusions. 2.Suggestion of pulmonary congestion in the setting of mild cardiomegaly. 3.Indeterminate masslike para-bronchovascular consolidation along with segmental right lower lobe bronchus with interval development of right lower lobe atelectatic collapse. There is no clear correlate for these findings on prior chest radiographs. However, this may blend with the right main pulmonary artery on frontal views. Findings favor interval development of infectious/inflammatory etiology with postobstructive atelectasis/mucus plugging. Recommend short-term follow-up CT chest with contrast to document resolution. Recommend new baseline chest radiograph, PA and lateral if able. Findings verbally relayed to Dr. Guadalupe by Mikel Reyez M.D. at 1328 on 08/22/2022. > Dictated by Ron Marvin MD (transporter radiology) Mir, MIKEL REYEZ MD have personally reviewed and interpreted this examination/study. > Interpreting Provider: MD JUAN CARLOS on 08/22/2022 1:28 PM US RETROPERITONEAL COMPLETE Result Date: 08/20/2022 IMPRESSION: 1.Normal renal size. No evidence of nephrolithiasis, hydronephrosis, or solid renal mass. 2.1.5 x 1.1 cm simple cyst within the upper pole of the right kidney. 3.Right pleural effusion. > Dictated by Xiao Retana MD (transporter radiology). Corey Hester MD have personally reviewed and interpreted this examination/study. > Interpreting Provider: Corey Min MD on 08/20/2022 1:22 PM Assessment: Intracranial hemorrhage, nontraumatic (CMS/HCC) POA: Unknown PLAN: Neurological: RASS goal - -1,0 #Intraparenchymal pontine bleed. #Altered mental status. -At OSH CTH showed pontine intraparenchimal bleed. -On repeat CTH here, same -Neurosurgery no intervention -Neurology BP goal <160, control hypoglycemia, hyponatremia, and hyperthermia. -frequent re-orientation Cardiovascular: MAP goal - >65 mmHg #HTN emergency Patient BP uncontrolled in the setting of missing PO meds. -On nicardipine drip 08/22 BP goal <160 Plan: Continue PO Clonidine, hydralazine, Nifedipine Continue Nicardipine drip Consider adding Imdur if BP not controlled. F/U TTE results. Consider Renal artery doppler for renal artery stenosis. Pulmonary: SpO2 goal - >90% #AHRF 2/2 Aspiration pneumonia, COPD exacerbation, Pulmonary Edema On Venti mask #Aspiration pneumonia -CT scan showed .Indeterminate masslike para-bronchovascular consolidation along with segmental right lower lobe bronchus with interval development of right lower lobe atelectatic collapse. -Started on CTX and Flaggyl (08/22) -F/U Sputum Cx. #Pulmonary edema - CT scan showed 1.Bilateral, moderate right and small left, pleural effusions. 2.Suggestion of pulmonary congestion in the setting of mild cardiomegaly - Got lasix 20 mg IV. #COPD exacerbation -45 years Hx of smoking -Wheezing on PE -Duonebs Q4 PRN -CFTX and flaggyl -Prednisone 40 for 4 days. GI: If the patient is tolerating PO intake Gluco check Q6 Renal: #TOÑA on CKD -Baseline Cr 3.3 -Pre-renal in the setting of volume loss. -Neophrology consulted and will get gialysis tomorrow. - Hold lasix tonight. - NPO after MN for tunneled catheter tomorrow. Plan: - sodium bicarb 1300 tid - NPO after MN in anticipation of tunneled hemodialysis catheter placement. - f/u SPEP/UPEP and immunofixation - EPO 7000 units/week - Avoid nephrotoxic medications and renally dose medications #hyponatremia -ddx: pre renal etiology c/f??SIADH,??hypovolemia, contrast induced, hx of nephrotic range proteinuria, CKD stage 5. - improvement of hyponatremia 127 > 129 ?? - TSH 4.65, Triglycerides 64 - urine labs, showed Na>75, FeNa 39.4%, suggesting intra-renal. - consider SIADH in the setting of increased urine osmolality with an increase in urine sodium Plan: -Continue fluid restriction to 1L/24 hrs - CTM #urinary retention - patient with new onset urinary retention on admission - likely 2/2 clonidine use and inpatient hospitilization - would not change clonidine dose as patient is stable on hypertensive regimen and risks outweigh benefit for repeat intracranial bleed. PLAN: - bladder scans PRN, straight cath if > 350cc - flomax 0.8 Endocrine: BGM goal 140-180 mg/dL ID: See Pulm for aspiriation pneumonia Heme/Onc: #Normocytic??anemia 2/2 CKD -??Hgb at presentation initially 8.4 (baseline) but dropped to 7.0 following IVF - Iron studies ordered while inpatient ??w/normal iron, although no ferritin -??Type and cross and 1unit pRBCs 08/18/22 for Hb of 6.2 PLAN: - EPO 7000 units/week (declined dose this week) - CTM Hgb, Transfuse for Hgb < 7.0 FEN: -Monitor electrolytes QD, Replace K<4, Mg<2, Phos<3 Lines: Type: NG tube (08/22) Prophylaxis: Aspiration precautions w/ HOB elevation by 30 degrees GI prophyalxis w/ famotidine DVT prophyalxis w/ SCDs, Heparin Diet: Activity: Disposition: ICU Monitoring IP CONSULT TO NEUROSURGERY IP CONSULT TO VASCULAR NEUROLOGY IP CONSULT TO CASE MANAGEMENT IP CONSULT TO NUTRITIONAL SERV IP CONSULT TO SHEAR ASSEMBLER IP CONSULT TO PHYSICAL MED AND REHAB IP CONSULT TO PULPING MACHINE OPERATOR IP CONSULT TO NEPHROLOGY IP CONSULT TO INTERNAL MEDICINE IP CONSULT TO LANDSCAPE SPECIALIST Code Status: Full code Earnestine Chatterjee MD Associated attestation - José Garcia MD - 08/23/2022 11:34 AM CDT Attending Attestation Note I have seen and examined the patient. I reviewed and agree with the documentation and care plan of the resident/fellow/AURA with the following exceptions and/or additions below: Date of Service: 08/22/2022 Acute Problem List: Hypertensive emergency POA: Yes Respiratory failure with hypoxia (CMS/HCC) POA: Yes Acute renal failure (ARF) (CMS/HCC) POA: Yes Intracranial hemorrhage, nontraumatic (CMS/HCC) POA: Yes Pleural effusion POA: Yes Aspiration pneumonia (CMS/HCC) POA: Yes Dysphagia POA: Yes Hyponatremia POA: Yes Elevated troponin POA: Yes Hypoalbuminemia POA: Yes High anion gap metabolic acidosis POA: Yes Normocytic anemia POA: Yes Acute decompensated heart failure (CMS/HCC) POA: No Plan: - Pt upgraded to ICU for hypertensive emergency requiring Cardene gtt in the setting of acute renalfailure. - Acute renal failure further complicated by worsening volume overload with pulmonary edema, acute hypoxic respiratory failure, and metabolic acidosis - nephrology with plans to initiate MATERIAL HAULER. - Continue weaning supplemental O2 as tolerated. - Continue gradual correction of BP with Cardene. - Clinical picture does not support COPD exacerbation, will d/c systemic steroids and monitor. - Switch abx to Unasyn to cover for presumed aspiration pneumonia. - Delirium precautions: Provide frequent re-orientation, minimize sedating medications, ensure paincontrol, enable good sleep hygiene, encourage early mobilization as tolerated. Total Critical Care Time: 35 min - The following organ systems are in failure or are in imminent risk of life threatening deterioration: respiratory, renal, cardiovascular - Critical decision making: Highly Complex - I provided this patient with direct intervention & supervision necessary to prevent life threatening deterioration related to patient's presenting illness. José Garcia MD [facility] Division of Pulmonary, Critical Care, and Sleep Medicine [employer] [facility] * Ree Rodrigues - 08/19/2022 2:37 PM CDT [facility] INTERNAL MEDICINE HISTORY & PHYSICAL NOTE Date of Admission: 08/15/2022 Patient: Kirsty Rea Sex: female Age: [age] year old Date of : 1940 Code Status: Full Code SUBJECTIVE Chief Complaint: Hyponatremia History of Present Illness: Patient is a??81 year old??white??female??with a PMH of HTN and CKD5 (baseline Cr ~3.3), morphea who presented??to OSH??on 08/15/22??with??generalized weakness and nausea/vomiting,??transfered to 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 Stay has beencomplicated by hypertenstion 150s-170s/60s-77s requiring IV antihypertensives. ?? In AM of 08/15 developed diffuse, generalized weakness in addition to N/V. Vomited numerous times although cannot endorse a specific number of episodes or how many hours this bothered her for. 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 On arrival VSS and wnl. Lab work-up notable for Hgb 8.4 (at baseline), Cr 3.74; repeat labs the following day notable for Hgb 7.0, Cr 4.27. Past Medical History: Past Medical History: Diagnosis Date ??? CKD (chronic kidney disease) stage 3, GFR 30-59 ml/min ([facility]) proteinuria ??? HTN (hypertension), benign ??? 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 Morphea ??? Osteopenia Past Surgical History: Past Surgical History: Procedure Laterality Date ??? Appendectomy ??? Breast Reduction ??? Cholecystectomy, Laparoscopic ??? HX FRACTURE TX ??? OOPHORECTOMY 1971 ??? Parathyroidectomy 1999 Family [...] 10/31/1965 Quit date: 10/31/1983 Years since quittin.8 ??? Smokeless tobacco: Never Used Vaping Use [...] Encounter Medication Sig Dispense Refill ??? acetaminophen (TYLENOL) 500 MG capsule Take 500 mg by mouth every 4 hours as needed for Fever or Pain ??? Glycerin (OASIS TEARS PLUS PF OP) ??? hydroCHLOROthiazide (MICROZIDE) 12.5 MG capsule Take 1 (one) capsule by mouth once daily 90 capsule 3 ??? labetalol (NORMODYNE; TRANDATE) 200 MG tablet 1 tablet 2 times daily ??? labetalol (NORMODYNE; TRANDATE) 200 MG tablet Take 1 (one) tablet by mouth 2 times daily 180 tablet 3 ??? Multiple Vitamins-Minerals (ICAPS AREDS 2 PO) ??? NIFEdipine CR osmotic 24hr (PROCARDIA-XL) 90 MG tablet TAKE 1 TABLET ONE TIME EACH DAY ??? olopatadine (PATADAY) 0.2 % ophthalmic solution Instill 1 (one) drop into both eyes once daily 2.5 mL 0 ??? [place]-3 Fatty Acids (FISH OIL) 1200 MG ??? oxybutynin (DITROPAN) 5 MG tablet TAKE 1 TABLET BY MOUTH EVERY DAY 90 tablet 1 ??? RESTASIS 0.05 % ophthalmic suspension ??? triamcinolone acetonide (KENALOG) 0.1 % cream APPLY TO RASH ON BACK AND BODY TWICE A DAY NEEDED. AVOID FACE. 45 g 0 ??? XIIDRA 5 % opthalmic solution Current Medications: Scheduled: ??? cloNIDine 0.2 mg Oral TID ??? epoetin Deyanira-EPBX (Retacrit) injection 7,000 Units Subcutaneous q7 days ??? heparin 5,000 Units Subcutaneous TID ??? hydrALAZINE 50 mg Oral TID ??? labetalol 200 mg Oral q12h ??? NIFEdipine CR osmotic 24hr 90 mg Oral QDAY ??? polyethylene glycol 3350 17 g Oral QDAY ??? senna 17.2 mg Oral QDAY Continuous: PRN: Review of Systems: (positives are bolded) CONSTITUTIONAL: fatigue, weight loss, fevers, chills, sweats, malaise, anorexia EYES: visual blurring, double vision, eye pain ENT: hearing loss, tinnitus, vertigo, epistaxis, bleeding gums RESP: shortness of breath, dyspnea on exertion, cough, pleuritic chest pain, wheezing CV: palpitations, syncope, chest pain, edema, orthopnea, PND GI: dysphagia, nausea, vomiting, abdominal pain, constipation, diarrhea : incontinence, dysuria, frequency, hematuria, kidney stone MSK: joint stiffness, swelling, pain NEURO: headaches, syncope, seizures, gait problems, tremor, balance, memory SKIN: rash, itching, bruising, lumps or bumps PSYCH: depressed mood, anxiety, suicidal or homicidal ideation ENDO: cold or heat intolerance, polyphagia, polydipsia, polyuria HEME: anemia, bleeding disorder, abnormal bruising, blood clots OBJECTIVE Vital Signs: Temp: [97.2 ??F (36.2 ??C)-97.9 ??F (36.6 ??C)] 97.4 ??F (36.3 ??C) Pulse: [62-88] 64 Resp: [16-18] 18 BP: (101-145)/(49-66) 118/52 Physical Exam: General: alert and oriented, no acute distress, pleasant and cooperative Head: normocephalic, atraumatic Eyes: conjunctivae clear, extraocular muscles intact Mouth/Throat: oropharynx clear with no lesions, moist mucous membranes Neck: no jugular venous distension, no cervical lympadenopathy, good range of motion CV: regular rate and rhythm, no murmurs appreciated Resp: clear to auscultation bilaterally, no wheezes or crackles heard Abd: soft, nontender, nondistended, normoactive bowel sounds Extremities: no lower extremity edema, no cyanosis Skin: skin color and turgor normal, no rashes or lesions noted Neuro: moving all extremities well, no focal deficits Lab Results: CBC: Recent Labs Component Name 08/19/22 1056 08/18/22 1011 08/17/22 0426 WBC 4.6 4.2 6.3 HGB 7.6* 6.2* 7.1* HCT 22.1* 19.3* 20.8* MCV 83.4 85.8 80.9 Coagulation Panel: Recent Labs Component Name 08/19/22 1056 08/18/22 1011 08/17/22 0420 PT 13.1 13.1 12.9 INR 1.0 1.0 1.0 BMP: Recent Labs Component Name 08/19/22 1056 08/18/22 1011 08/17/22 0405 NA 127* 132* 134* POTASSIUM 4.0 3.8 3.0* CL 99 102 105 CO2 17* 19* 16* BUN 66* 63* 58* CREATININE 4.65* 4.42* 4.22* CALCIUM 8.6 8.3* 8.7 Recent Labs Component Name 08/19/22 1056 08/18/22 1011 08/17/22 0405 MAGNESIUM 2.1 2.1 2.1 Recent Labs Component Name 08/19/22 1056 08/18/22 1011 08/17/22 0405 PHOS 5.7* 5.3* 4.4 Hepatic Panel: Recent Labs Component Name 08/17/22 0405 03/09/22 1312 AST - 14 ALT - 12 ALKPHOS - 72 ALB 2.8* - ABG: No results for input(s): PH, PCO2, PO2 in the last 71335 hours. Invalid input(s): BICAR3 Amylase/Lipase: Invalid input(s): AMYL, LIPA Thyroid Studies: Recent Labs Component Name 01/04/20 1515 TSH 2.452 Cardiac Enzymes: Recent Labs Component Name 08/15/22 0817 08/15/22 0617 08/15/22 0339 TROPONINI 0.037* 0.030 0.035* Lipid Panel: No results for input(s): LDLCALC, HDL in the last 28467 hours. UA: + protein and leuk esterase Imaging & Studies: MRI BRAIN WWO CONTRAST Result 08/15/22 IMPRESSION: 1.Redemonstration of small right pontine hemorrhage with mild surrounding vasogenic edema. No significant mass effect. No supratentorial hydrocephalus. 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 3.Otherwise, no large arterial occlusions or significant stenoses identified in the head. MRI ANGIO BRAIN ARTERIAL WO CONT Result 08/15/22 IMPRESSION: 1.Redemonstration of small right pontine hemorrhage with mild surrounding vasogenic edema. No significant mass effect. No supratentorial hydrocephalus. 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 3.Otherwise, no large arterial occlusions or significant stenoses identified in the head. XR CHEST 1VW Result: 08/16/2022 IMPRESSION: Minimal left basilar atelectasis is present. The right lung is clear. Blunting of the left costophrenic angle may represent a tiny pleural effusion. No pneumothorax is identified. Cardiac size is normal. The superior mediastinal contours are within normal limits. No acute osseous abnormality is identified. MRI BRAIN WWO CONTRAST Pending ASSESSMENT & PLAN Kirsty Rea is a 81 year old female w/PMH significant for CKD5 (baseline Cr ~3.3), HTN, morphea,Pontine hemorrhagic stroke s/p stabilization admitted for hyponatremia workup and medical stabilization prior to placement. #hyponatremia -ddx: pre renal etiology c/f SIADH, hypovolemia, contrast induced, hx of nephrotic range proteinuria, CKD stage 5. - patient with with down trending sodium Na 127> 132 > 134 > 139 (3 days ago) - asymptomatic with no N/V/headache/confusion. - endorses fatigue due to not sleeping as much the past couple of nights - Ca/Mag/phos: 8.6/2.1/5.7 - urine studies sent - Urine Osm: 288 - Urine Sodium: < 20 - Urine Protein/Creatinine: 1.70 Plan: - free water restriction - repeat labs at 2200 - NaCl infusion at 75ml/hr If < 124 can increase rate to 125mL/hr - If > 134 discontinue - If in-between, can continue at current rate - f/u TSH/ Triglyceride #pontine hemorrhagic stroke - no additional stroke w/u pending - Continue Q??4??neurochecks; NIHSS Q daily - NSGY??signed off - BP Goal:??SBP 130-150 -??Swallow Evaluation:??within normal limits -??PT/OT Evaluation:??recommended acute rehab (3hrs per day) -Patient's family prefers SNF -??DVT prophylaxis:??started hepatin 5000u tid 08/17 ?? #HTN - Home Medications: HCTZ 12.5mg daily, Nifedipine ER 90mg, Labetalol 200mg BID - SBPs have been 130s-150s while here at [facility] -Goal SBP 130-150 -currently on labetalol 200mg bid, nifedipine 90mg bid, clonidine 0.2mg tid, hydralazine 50mg tid -hydralazine 10mg IV PRN, labetalol 10mg IV PRN ?? #TOÑA on CKD5 #non-gap metabolic acidosis - Most likely prerenal in setting of vomiting, blood loss, diuretic use prior to presentation; other less likely etiologies include obstruction (does have some retention but urinary habits unchanged from home), infection (trace bacteria but no other signs to suggest) - Baseline Cr around 3.3 since 04/2022; CKD 2/2 HTN - Sees nephrology (Dr. Reyes) as outpatient; recent biopsy due to nephrotic range proteinuria that noted hypertensive nephrosclerosis, no acute findings - FENa 0.4% c/f prerenal etiology PLAN: - Bladder Scans q8h to evaluate for retention, if >350cc straight cath - f/u SPEP/UPEP and immunofixation - Avoid nephrotoxic medications and renally dose all medications that are given #Normocytic anemia - Hgb at presentation initially 8.4 (baseline) but dropped to 7.0 following IVF - Likely has component of anemia of chronic disease 2/2 renal dysfunction - Iron studies ordered while inpatient w/normal iron, although no ferritin - Type and cross and 1unit pRBCs today for Hb of 6.2 PLAN: - Continue to monitor Hgb - Consider ferritin for additional evaluation - Transfuse for Hgb < 7.0 Code: full Diet: renal Electrolytes: Replete PRN PPx: heparin Access: PIV Dispo: The above assessment and plan will be discussed with the attending. This note is not final until attested by attending physician. Ree Rodrigues Internal Medicine M4 [facility] 08/19/2022 2:38 PM * Héctor Silva MD - 08/15/2022 7:48 AM CDT I have seen and examined the patient. I spent 70 minutes all together, over 50% of which was spent on counseling and/or care coordination. Date of Service: 08/15/2022 This is a time-based encounter; independent of trainees or APPs. Héctor Silva MD Interval History:Kirsty Rea is a 81 year old F who developed sudden on nausea and vomiting on 08/15. 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 Transferred to [facility] for further management. Physical Exam: Alert and Oriented, Nl Language, No Neglect EOMI, PERRL, Facial Expression Symmetric, VFF Motor: 5/5 and Symmetric Sensation: Symmetric to LT Plan: Further Testing: MR wwo and MRA head Secondary Prevention: SBP goal 130 to 150 Recovery: TBD LOS 0 Problem List Intracranial hemorrhage, nontraumatic (CMS/HCC) POA: Unknown See Resident note for the remaining problem specific plan. MEDICATIONS FOR CURRENT ENCOUNTER: ?? SCHEDULED MEDICATIONS: ?? 0.9% NaCl injection 3 mL, Intracatheter, q8h ?? CONTINUOUS MEDICATIONS: ?? isolyte-S pH 7.4 infusion, Intravenous, Continuous ?? niCARdipine (Cardene) 20 mg in 0.9% NaCl 200 mL infusion, Intravenous, Continuous ?? PRN MEDICATIONS: ?? Or ?? 0.9% NaCl injection 1-10 mL, Intracatheter, PRN ?? hydrALAZINE (Apresoline) injection 10 mg, Intravenous, q20 min PRN ?? labetalol (Normodyne; Trandate) injection 10 mg, Intravenous, q15 min PRN Patient Vitals for the past 24 hrs: Temp Pulse Resp BP 08/15/22 0700 -- 75 13 137/53 08/15/22 0645 -- 74 15 132/64 08/15/22 0630 -- 73 14 139/59 08/15/22 0615 -- 73 12 135/54 08/15/22 0600 -- 73 14 116/85 08/15/22 0545 -- 79 16 144/67 08/15/22 0530 -- 76 17 146/62 08/15/22 0515 -- 73 14 142/63 08/15/22 0500 -- 67 14 150/61 08/15/22 0445 -- 61 13 171/74 08/15/22 0430 -- 64 12 174/66 08/15/22 0415 -- 68 12 170/78 08/15/22 0400 98.7 ??F (37.1 ??C) 62 14 161/71 08/15/22 0345 -- 76 10 156/89 08/15/22 0330 -- 70 13 135/74 08/15/22 0315 98.6 ??F (37 ??C) 75 12 (!) 143/118 Recent Labs Component Name 08/15/22 03303/09/22 1312 01/04/20 1515 NA 139 - 141 CL 108* - 102 CO2 19* 21 27 BUN 55* 65* 47* CREATININE 3.74* 2.74* 2.1* CALCIUM 9.6 8.7 9.3 PHOS - - 4.1 Recent Labs Component Name 08/15/22 0339 03/09/222 01/04/20 1515 WBC 6.8 5.1 5.9 RBC 3.00* 3.01* 3.82* HGB 8.4* 8.5* 10.7* HCT 24.8* 26.6* 32.5* No results for input(s): CHOL, TRIG, HDL, VLDL, LDL, LDLCALC, LDLDIRECT, CHOLHDL in the last 05001 hours. No results for input(s): HGBA1C, A1C, HKRNGWLFX1M, EAG in the last 05308 hours. Recent Labs Component Name 08/15/22 0339 03/09/222 01/04/20 1515 PLTCOUNT 203 [id number] * Brandon Blevins MD - 08/15/2022 3:25 AM CDT Images from the original note were not included. [facility] Stroke History and Physical Kirsty Rea Age: [age] year old Date of : 1940 Date of Admission: 08/15/2022 Hospital Day: 0 Subjective Kirsty Rea is a 81 y/o F with past medical history of HTN, CKD3, Morphea and osteopenia transferred from [facility] to [facility] Neuro ICU for pontine intraparenchymal hemorrhage. Patient reports developing generalized weakness and nausa/vomiting this afternoon. She had several episodes of vomiting but denies ALDANA,CP, speech changes, vision or sensory changes. Reports photosensitivity. 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 Past Medical History: Diagnosis Date ??? CKD (chronic kidney disease) stage 3, GFR 30-59 ml/min proteinuria ??? HTN (hypertension), benign ??? Hyperparathyroid bone disease s/p surgery ??? Morphea ??? Osteopenia Past Surgical History: Procedure Laterality Date ??? Appendectomy ??? Breast Reduction ??? Cholecystectomy, Laparoscopic ??? HX FRACTURE TX ??? OOPHORECTOMY 1971 ??? Parathyroidectomy 1999 Current medications: Labetalol 200 mg BID, HCTZ 12.5 qday, Nifedipine ER 90 mg qday Allergy Allergies Allergen Reactions ??? Ramipril Other Other reaction(s): Other (See Comments) Kidney Damage Kidney Damage Family History Family History Problem Relation Name Age of Onset ??? Hypertension Father ??? Hypertension Brother Social History Social History Socioeconomic History ??? Marital status: Tobacco Use ??? Smoking status: Former Smoker Packs/day: 1.00 Start date: 10/31/1965 Quit date: 10/31/1983 Years since quittin.8 ??? Smokeless tobacco: Never Used Vaping Use ??? Vaping Use: Never used Substance and Sexual Activity ??? Alcohol use: Yes Alcohol/week: 0.8 standard drinks ??? Drug use: No ??? Sexual activity: Not Currently Partners: Male Objective No data found. Neurologic Exam: Mental status: Awake, alert, Follows commands. Oriented x 3 Language: Fluency intact, comprehension intact, repetition intact. Visual quesada: Intact bilaterally to confrontation. Neglect: No appreciable visual or tactile neglect noted. CN 3 - 12: Intact Normal tone and bulk No abnormal movements. Objective strength: Proximal Upper Distal Upper Proximal Lower Distal Lower Right 5/5 5/5 5/5 5/5 Left 5/5 5/5 5/5 5/5 Muscle Stretch Reflexes BI TRI BR PAT ACH TOES Right 3 3 3 3 3 Down Left 3 3 3 3 3 Down Bilateral suprapatellar reflex + Sensory LT: symmetric and intact . 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 Stroke Type: . Hemorrhagic Stroke Mechanism : Hypertension Plan Neurological Hilary IPH - Pending MRI Brain wwo and MRA w - Stat CT head for any change in neurological examination - Head of bed > 30?? - Avoid hypoglycemia, hyponatremia, and hyperthermia - Neurosurgery consulted Cardiovascular No data recorded, No data recorded HTN Blood pressure goals and PRNs: - BP goal to be achieved via PO med titration: SBP < 40, DBP < 90 - Active BP parameter orders were reviewed as of 08/15/22. - Active PRN IVP orders as of 08/15/22: hydralazine/labetalol IV prn for SBP > 160, DBP > 110. - Active IV drip order as of 08/15/22: Nicardipine - Active notify MD BP order as of 08/15/22: call MD if BP >160/90 despite the above - Maintain MAP ~ 65 Respiratory No active issues - Aspiration precautions - Elevate head of bed - Maintain oxygen saturation > 92% - Monitor for respiratory distress Renal/Electrolytes No intake or output data in the 24 hours ending 08/15/22 0326 #CKD 3 - Cr 2.7 on 02/2022 - Monitor intake and output - Replete electrolytes as needed Infectious Disease No data recorded. No active issues - Monitor for fevers - Maria culture if febrile Gastrointestinal No active issues - Pending swallow evaluation - Diet: NPO - GI ppx: not indicated Endocrine No active issues - f/u A1C - Accuchecks Hematology Recent Labs Component Name 03/09/22 1312 WBC 5.1 HGB 8.5* HCT 26.6* PLTCOUNT 221 No active issues DVT ppx: SCDs Musculoskeletal No active issues Disposition - PT/OT pending Brandon Blevins MD Neurology Resident. [facility]. documented in this encounter Procedure Notes * Srini Quach MD - 09/09/2022 2:22 PM CST Procedure: Hemodialysis Indication: ESRD. This patient was seen and examined by me during dialysis today at 12:05PM. BP 93/56, HR 85. No complaints. Tolerating the treatment well. Patient will discharged to rehab today. Srini Quach MD Division of Nephrology NICIAN HELPER INSTRUMENT * Srini Quach MD - 09/07/2022 3:55 PM CST Procedure: Hemodialysis Indication: ESRD. This patient was seen and examined by me during dialysis today at 9:35AM. BP 125/63. Trace edema. Epo increased to 8000 units x3/wk for anemia. Tolerating the treatment well. Srini Quach MD Division of Nephrology NICIAN HELPER INSTRUMENT * Peggy Cintron MD - 09/04/2022 10:02 AM CDT Procedure: HD Indication: ESRD This patient was seen and examined by me during dialysis today. The patient is awake and using oxygen 4L/min via NC. BP 137/54 and appears comfortable. Dialysis orders reviewed; 2K 2.5Ca, BFR 350mL/min via RIJ catheter, and to attempt 2-3L over 3.5 hours today. * Peggy Cintron MD - 09/02/2022 12:29 PM CDT Procedure: HD Indication: ESRD This patient was seen and examined by me during dialysis today. The patient is awake and using oxygen via NC. BP 148/66, and appears comfortable. Dialysis orders reviewed; 3K 2.5Ca, BFR 350mL/min viaRIJ catheter, and to attempt 2.0L over 3 hours today. Please see nephrology progress notes for details and contact us with questions. * Peggy Cintron MD - 08/31/2022 3:54 PM CDT Procedure: DUF Indication: ESRD, hypervolemia (pleural effusion) and uncontrolled HTN. This patient was seen and examined by me during ultrafiltration today @ 10:55AM. The patient is awake and using oxygen via NC. BP 163/51, and appears comfortable. To attempt 2.0-2.5L over 3 hours today. Please see nephrology progress notes for details and contact us with questions. * Estuardo Lala RCP - 08/31/2022 11:08 AM CDTAssociated Order(s): NOCTURNAL DESATURATION STUDY Images from the original note were not included. Nocturnal Oxygen Desaturation study set up and completed by Kerry Pete commissioning specialist RT. Patient on RA (Device/FiO2 or liter flow/Settings/etc) during study. Results uploaded to Message Bus and shared with Dr. Allen M.D., [employer]pper reading PFT's. Final report with interpretation will be posted in Results Review under Pulse Oximetry, Continuous . * Peggy Cintron MD - 08/30/2022 10:15 AM CDT Procedure: Hemodialysis Indication: ESRD. This patient was seen and examined by me during dialysis today @ 10:10AM. The patient appears more comfortable in dialysis today. BP remains elevated albeit minimal edema. Dialysis orders reviewed and revised as follows; 3K 2.5Ca and to attempt up to 3L over 3.5 hours. Please see nephrology progress notes for further details. * Jes Ruiz MD - 08/25/2022 12:45 PM CDT Brief Procedure Note - Interventional Nephrology ?? Kirsty Rea 1940 ?? Procedure: Permcath placement RIJ Removal of RIJ татьяна catheter Documentation Supervisor: Jes Ruiz MD Graduate Teaching Assistant: Loly Aleman MD ?? Complications: None ?? Permcath OK to use. Full procedure note and images in Synapse and EPIC (Results/Interventional) Dr.Posan Jairo Ruiz Interventional Nephrology [facility] 08/25/22 12:49 PM * Peggy Cintron MD - 08/25/2022 11:11 AM CDT Procedure: Hemodialysis Indication: ESRD. This patient was seen and examined by me during dialysis today @ 10:55AM. The patient is in ICU andusing venti mask, appears somewhat more alert and comfortable today. BP 121/61 and P 82/min, dialysis orders reviewed and revised as follows; to change last hour of dialysis to DUF and attempt extra UF. Tunneled dialysis catheter placement today. Please see nephrology progress notes for further andcontact us with questions. * Francisco Camacho DO - 08/23/2022 3:02 PM CDT Central Venous Catheter Insertion Procedure Note Procedure: Insertion of Central Venous Catheter Indications: temporary dialysis access Surgeon: Francisco Camacho DO Graduate Teaching Assistant: Ashvin Barber MD Procedure Details Informed consent was obtained for the procedure, including possible sedation. Risks of lung perforation, hemorrhage, infection, arrhythmia, and adverse drug reaction were discussed. Time-Out Process performed, verified patient identification, verified procedure, verified site/side, verified correct patient position, special equipment/implants available. The skin above the right internal jugular vein was prepped with chlorhexidine. Under sterile conditions (hand hygiene prior to donning gloves, gown, mask, sterile drape), maximal barrier precautions (mask, hat, sterile gloves and gown for the person performing the procedure and full body drape on the patient) were utilized. Local anesthesia was infiltrated into the skin and subcutaneous tissues. An 18-gauge needle was inserted into the vein. A guide wire was easily inserted through the needle. While inserting the guide wire no arrhythmias occurred. The needle was withdrawn over the guide wire. The wire was visualized under ultrasound in both long and short axes to confirm placement. A scalpel was used to puncture the skin entry site to facilitate catheter insertion. The dilator was passedover the guide wire and removed. A Trialysis catheter was inserted into the vessel over the guide wire. The guide wire was removed. Catheter was aspirated for blood, flushed, and secured with suture and a sterile chlorhexidine dressing was applied. Ultrasound Guidance: yes Complications: None; patient tolerated the procedure well. Condition: stable. Recommendations: CXR ordered to verify placement. Francisco Camacho DO, PGY-6 Pulmonary & Critical Care Fellow Division of Pulmonary, Critical Care and Sleep Medicine [facility] Associated attestation - Ashvin Barber MD - 08/23/2022 9:01 PM CDT I was present for the procedure. * Loly Aleman MD - 08/23/2022 9:52 AM CDT IP Sedation Pre Date/Time: 08/23/2022 9:52 AM Performed by: LOLY ALEMAN Authorized by: JES RUIZ Unit: IR Consent: Verbal consent obtained. Written consent obtained. History & Exam Attestation: I have reviewed the pre-procedure nursing assessment: Yes Brief history and exam related to procedure complete: Yes H&P was reviewed, the patient was examined, and that ? no changes? have occurred in the patient? s condition since the H&P was complete: Yes History of previous anesthetic problems/complications including family history: No History of airway problems: No Tracheal deviation: No Short thick neck/non-visible neck: No Neck with limited range of motion: No Visible anterior neck mass: No Small mouth opening/ and/or sub/mental space (less than 3 finger breadths): No Protruding upper teeth: No Oxygen saturation less than 91% on room air: No Pre-Procedure ASA Classification: ASA 2 Mallampati Classification: Class II Procedure Plan: Moderate Sedation Based on the pre-procedure assessment, History and Physical, and allergy history, this patient is asuitable candidate for sedation during the planned procedure. I have discussed the plan, risk, benefits and alternatives with patient, family members or patient financial services representative: Yes Attestation: I have reviewed the immediate pre-procedure vital signs: Yes Patient reports or my clinical evaluation indicates there have been no changes in the patient's condition prior to the start of the procedure: Yes Intra-Procedure Patient is currently here for permcath placement 08/23/2022 9:52 AM Loly Aleman MD Nephrology Fellow #[phone] documented in this encounter Consult Notes * Dianne Callaway DO - 09/01/2022 7:27 AM CDTAssociated Order(s): IP CONSULT TO LANDSCAPE SPECIALIST Images from the original note were not included. Pulmonary Medicine Consult Note Referring Physician: Hospitalist Reason for Referral: Pleural effusion Name: Kirsty Rea, [id number] Age: [age] year old Room: 843/01 Date Admitted: 08/15/2022 ? Subjective: Chief Complaint: Pleural effusion, AHRF HPI: Ms. Kirsty Rea is an 81 y/o female w/ hx of HTN, CKD stage V, morphea, who was admitted to [facility] on 08/15/22 to the Neuro-ICU for further care of pontine IPH. CTH showed pontine IPH measuring 9*8*10 mm without mass effect. The patient was treated with IV antihypertensives due to poorly controlled hypertension. On arrival patient was on RA, subsequently patient noted to be more anxious with increased WOB a/w chest pain. EKGs on 08/20 and 08/21 all showed sinus bradycardia with 1st degree AV block, no ischemic changes. Troponin was slightly elevated (peak 0.12). Echo on 08/16 showed LV concentric hypertrophy with preserved function and evidence of intracardiac shunt. CXR on 08/21 showed b/l L>R sided pleural effusion with concomitant atelectasis. CT chest wo contrast on 08/22 showed moderate L sided pleural effusion with radha- bronchial consolidation. Pulmonary was then consulted on 08/22 for further management of AHRF, pleural effusion and abnormal CT finding. She was subse quently treated for possible aspiration PNA for 5 days with Pip/Tazo, MRSA nares negative. She was diuresed and later transferred to the MICU for hypertensive emergency requiring nicardapine gtt. Also noted to have worsening volume overload and pulmonary edema. She was seen by Nephrology - HD catheter placed and HD initiated. Pulmonary was consulted on 08/31/22 due to R > L pleural effusion forconsideration of thoracentesis. On examination the patient states she has shortness of breath at rest and with exertion. She endorses a mild cough with minimal sputum production. She denied hemoptysis, palpitations, orthopnea, or pleuritic chest pain. She has been immobile due to hospitalization. She appears deconditioned and shehas an NG tube in place. POCUS was performed by the Pulmonary team with minimal fluid visualization. US notable for atelectatic lung. Patient is being dialyzed with last Hd session 08/31/22 with 2.5L removed. Does no appear significantly fluid overloaded currently. Echo notable for HFpEF. Past Medical History: Diagnosis Date ??? CKD (chronic kidney disease) stage 3, GFR 30-59 ml/min ([facility]) proteinuria; Oven Dauber = Dr. Reyes ??? HTN (hypertension), benign ??? 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 Morphea ??? Osteopenia Past Surgical History: Procedure Laterality Date ??? Appendectomy ??? Breast Reduction ??? Cholecystectomy, Laparoscopic ??? HX FRACTURE TX ??? OOPHORECTOMY 1971 ??? Parathyroidectomy 1999 Family History Problem Relation Name Age of Onset ??? Hypertension Father ??? Hypertension Brother Social History Occupational History ??? Not on file Tobacco Use ??? Smoking status: Former Packs/day: 1.00 Types: Cigarettes Start date: 10/31/1965 Quit date: 10/31/1983 Years since quittin.8 ??? Smokeless tobacco: Never Vaping Use ??? Vaping Use: Never used Substance and Sexual Activity ??? Alcohol use: Yes Alcohol/week: 0.8 standard drinks ??? Drug use: No ??? Sexual activity: Not Currently Partners: Male Medications Prior to Admission Medication Sig Dispense Refill ??? acetaminophen (TYLENOL) 500 MG capsule Take 500 mg by mouth every 4 hours as needed for Fever or Pain ??? Glycerin (OASIS TEARS PLUS PF OP) ??? hydroCHLOROthiazide (MICROZIDE) 12.5 MG capsule Take 1 (one) capsule by mouth once daily 90 capsule 3 ??? labetalol (NORMODYNE; TRANDATE) 200 MG tablet 1 tablet 2 times daily ??? labetalol (NORMODYNE; TRANDATE) 200 MG tablet Take 1 (one) tablet by mouth 2 times daily 180 tablet 3 ??? Multiple Vitamins-Minerals (ICAPS AREDS 2 PO) ??? NIFEdipine CR osmotic 24hr (PROCARDIA-XL) 90 MG tablet TAKE 1 TABLET ONE TIME EACH DAY ??? olopatadine (PATADAY) 0.2 % ophthalmic solution Instill 1 (one) drop into both eyes once daily 2.5 mL 0 ??? [place]-3 Fatty Acids (FISH OIL) 1200 MG ??? oxybutynin (DITROPAN) 5 MG tablet TAKE 1 TABLET BY MOUTH EVERY DAY 90 tablet 1 ??? RESTASIS 0.05 % ophthalmic suspension ??? triamcinolone acetonide (KENALOG) 0.1 % cream APPLY TO RASH ON BACK AND BODY TWICE A DAY NEEDED. AVOID FACE. 45 g 0 ??? XIIDRA 5 % opthalmic solution Allergies Allergen Reactions ??? Ramipril Other Other reaction(s): Other (See Comments) Kidney Damage Kidney Damage ROS: Negatives in italics, positives in bold General: Weight change, appetite change, fatigue, weakness, fever, chills, night sweats HEENT: Rashes, itching, headache, acute visual changes, hearing loss, tinnitus, rhinorrhea, hoarseness, sore throat Cardiac: Chest pain, palpitations, BLANDON, dyspnea at rest, orthopnea, edema Respiratory: Cough, SOB, wheezing, pleuritic chest pain, sputum, hemoptysis Gastrointestinal: Abdominal pain, nausea, vomiting, diarrhea, constipation, melena, hematochezia, hematemesis Genitourinary: Dysuria, hematuria, hesitancy, frequency, incomplete voiding Musculoskeletal: Muscle weakness, joint pain or stiffness, limited range of motion Neurologic: Numbness or tingling in extremities, dizziness, lightheadedness Hematologic: Easy bruising/bleeding Endocrine: Thyroid disease, diabetes, polyuria, polydipsia, heat/cold intolerance Psychiatric: Recent depression, anxiety Objective: Physical Examination: General - NAD, afebrile, non-cachectic, A&O x3 HEENT - NC/AT, PERRL, EOMI, clear conjunctivae, throat without erythema or exudate, moist mucous membranes Neck - Supple, no lymphadenopathy Chest - right sided crackles and decreased basilar breath sounds, left clear to auscultation, no wheezing CV - RRR, no murmurs, radial and DP pulses 4/4 Abdomen - Soft, NT/ND, +BS Musculoskeletal - Moves all four extremities Extremities - No clubbing, no cyanosis, no edema Skin - No rashes, lesions or jaundice Neurologic - CN II-XII grossly intact. No focal deficits Psych - Appropriate mood and affect Input/Output Intake/Output Summary (Last 24 hours) at 09/01/2022 7337 Last data filed at 09/01/2022 0426 Gross per 24 hour Intake 844 ml Output 3400 ml Net -2556 ml ? Data Review: Labs: Reviewed. Imaging: Reviewed. Echo w/ bubble study (08/16/22) Summary Technically difficult/suboptimal echocardiogram. There is severe concentric left ventricular hypertrophy. The left ventricle is normal size. Left ventricular segmental wall motion is normal. Left ventricular systolic function is hyperdynamic with an ejection fraction by Biplane Method of Discs of 78 %. The left ventricular diastolic function is abnormal (Grade I), consistent with low normal left ventricle filling pressures. The right ventricular cavity size is normal. Normal right ventricular systolic function. Mild pulmonary hypertension, estimated pulmonary arterial systolic pressure is 48 mmHg. The left atrium is mildly enlarged. Injection of agitated saline was positive for intracardiac shunt. CT CHEST WO CONTRAST (08/22/2022) ? Pulmonary: Moderate right and small left pleural effusion with associated compressive atelectasis. Hazy groundglass opacification with mild interlobular septal thickening is seen throughout both lungs. There is masslike peribronchial vascular consolidation in the right lower lobe (series 4 image 54, series 6 image 72), which measures approximately 3.5 x 3.0 x 1.4 cm in maximum axial craniocaudal dimensions. This causes stenosis of the subjacent right lower lobe bronchi with resultant atelectatic collapse. There is prominent opacification, favored to represent pulmonary artery and chest radiograph dated 08/21/2022. ?? IMPRESSION: 1.Bilateral, moderate right and small left, pleural effusions. 2.Suggestion of pulmonary congestion in the setting of mild cardiomegaly. 3.Indeterminate masslike para-bronchovascular consolidation along with segmental right lower lobe bronchus with interval development of right lower lobe atelectatic collapse. There is no clear correlate for these findings on prior chest radiographs. However, this may blend with the right main pulmonary artery on frontal views. Findings favor interval development of infectious/inflammatory etiology with postobstructive atelectasis/mucus plugging. Recommend short-term follow-up CT chest with contrast to document resolution. Recommend new baseline chest radiograph, PA and lateral if able. XR CHEST 1VW PORTABLE (08/31/2022) IMPRESSION: Marked opacity in the right lower chest may be due to elevation of the diaphragm, atelectasis, and pleural fluid. The right upper lung field is clear. The left lung is clear. The pulmonary vasculature is upper limits of normal. There is small left pleural fluid. No pneumothorax. The right heart border is obscured. Visible cardiomediastinal contours are normal. The aorta is atherosclerotic. POCUS (09/01/22) Micro: Reviewed. Assessment and Plan: Assessment: 1. Acute hypoxic respiratory failure 2. R pleural effusion with atelectasis, minimal L pleural fluid 3. Aspiration pneumonia, treated, NG tube in place 4. Nocturnal desaturations, needs NAZANIN work-up with polysomnography outpatient 5. Echo consistent with pulmonary hypertension, estimated pulmonary arterial systolic pressure 48 mmHg. 6. Former smoker < 20 pack years 7. HFpEF 8. CKD V on HD In summary this is an 81 y/o F with AHRF secondary to R pleural effusion with atelectatic lung and likely elevated hemidiaphragm who was seen for consideration of Thoracentesis. At this time there isno pocket for drainage via thoracentesis. Recommend continued dialysis for decreasing fluid overload, incentive spirometry, and early ambulation. Plan: - No drainable pocket for thoracentesis - recommend PT/OT, early ambulation, and incentive spirometry - Agree with Speech therapy repeat evaluation for aspiration concerns - Nocturnal desaturations seen on study on 08/31/22 - patient needs formal outpatient polysomnogram for evaluation of possible NAZANIN. For now continue nightly supplemental O2. If daytime hypoxia improves, please repeat nocturnal desaturation study. Thank you for this consult. We will sign off at this time. Please call with any further questions. This case has been discussed with the pulmonary attending, Dr. Randall. Dianne Callaway DO PGY-2, Internal Medicine 09/01/2022 7:29 AM Associated attestation - Lexis Randall MD - 09/01/2022 3:15 PM CDT Images from the original note were not included. 09/01/2022 Attending Physician Supervisory Note I personally saw, evaluated and examined the patient and agree with the assessment and plan of the housestaff doctor except noted in my notes. Hospital course is noted. Pulmonary consulted for right sided effusion. 81 year old with right LL opacity, atelectasis, mass like consolidation and pleural effusion, ?diaphragm elevation. Right sided pleural space assessed with US on the bedside, atelectatic lung noted. Minimal effusionwith no safe window to tap. Continue current care and HD. If pt can do IS while awake. Early mobility and aspiration precautions. Repeat CT chest WO contrast. If still has collapsed RLL, we may need to consider bronch for inspection if she can tolerate. DVT ppx. Will follow the patient. Lexis Randall MD * Ray Holden MD - 08/26/2022 11:54 AM CDTAssociated Order(s): IP CONSULT TO VASCULAR NEUROLOGY Images from the original note were not included. Neurology Critical Care Consult Kirsty Rea Age: [age] year old Date of : 1940 Date of Admission: 08/15/2022 Hospital Day: 11 Reason for the consult: BP management in setting of ICH History of Present Illness 81 y/o F with PMH of HTN, CKD3, pontine hemorrhagic stroke (08/15) who was admitted to the ICU for elevated high blood pressure requiring nicardipine gtt and Acute hypoxic respiratory failure. Patient was admitted to NICU on 08/16 for pontine hemorrhage ICH score 1. Mechanism, was hypertensive. Transferred to floor on 08/17/22. Due to TOÑA and hyponatremia she was transferred to the medicine service. On 08/22 she developed decreased level of consciousness, could not take her BP medication BP > 160, CTH no change in bleed, CT chest ??showed indeterminate masslike para-bronchovascular consolidation concerning for aspiration pneumonia. As patient was started on nicardipine gtt she had to be transferred to ICU unit. Currently BP controlled with Clonidine??0.2 mg TID,??amlodipine??10 mg QHS,??Hydralazine 100 mg TID, continue Losartan 100 mg QD, labetalol 200mg Q8. Off nicardipine gtt since 07:30 am. Review of Systems: (positives are bolded) CONSTITUTIONAL: fatigue, weight loss, fevers, chills, sweats, malaise, anorexia EYES: visual blurring, double vision, eye pain ENT: hearing loss, tinnitus, vertigo, epistaxis, bleeding gums RESP: shortness of breath, dyspnea on exertion, cough, pleuritic chest pain, wheezing CV: palpitations, syncope, chest pain, edema, orthopnea, PND GI: dysphagia, nausea, vomiting, abdominal pain, constipation, diarrhea : incontinence, dysuria, frequency, hematuria, kidney stone MSK: joint stiffness, swelling, pain NEURO: headaches, syncope, seizures, gait problems, tremor, balance, memory SKIN: rash, itching, bruising, lumps or bumps PSYCH: depressed mood, anxiety, suicidal or homicidal ideation ENDO: cold or heat intolerance, polyphagia, polydipsia, polyuria HEME: anemia, bleeding disorder, abnormal bruising, blood clots Objective Patient Vitals for the past 24 hrs: BP Temp Temp src Pulse Resp SpO2 Weight 08/26/22 1100 -- -- -- -- -- 96 % -- 08/26/22 1000 143/65 -- -- 83 19 94 % -- 08/26/22 0930 136/76 -- -- 84 20 95 % -- 08/26/22 0900 150/64 -- -- 89 23 92 % -- 08/26/22 0845 150/63 -- -- 88 22 -- -- 08/26/22 0833 -- 99.4 ??F (37.4 ??C) Axillary -- -- 90 % -- 08/26/22 0830 147/75 -- -- 85 22 -- -- 08/26/22 0815 134/61 -- -- 82 19 -- -- 08/26/22 0800 127/56 -- -- 79 18 96 % -- 08/26/22 0734 127/52 -- -- -- -- -- -- 08/26/22 0700 127/56 -- -- 79 20 94 % -- 08/26/22 0614 129/54 -- -- -- -- -- -- 08/26/22 0600 (!) 162/128 -- -- 81 28 93 % -- 08/26/22 0531 155/64 -- -- 93 -- -- -- 08/26/22 0500 151/64 -- -- 92 22 93 % -- 08/26/22 0434 168/65 -- -- -- -- -- -- 08/26/22 0404 172/64 -- -- -- -- -- -- 08/26/22 0400 165/77 98.9 ??F (37.2 ??C) Axillary 90 20 94 % -- 08/26/22 0330 -- -- -- -- -- -- 82.5 kg (181 lb 14.1 oz) 08/26/22 0325 158/67 -- -- -- -- -- -- 08/26/22 0300 158/67 -- -- 90 20 94 % -- 08/26/22 0200 -- -- -- 84 19 94 % -- 08/26/22 0102 162/77 -- -- -- -- -- -- 08/26/22 0100 166/76 -- -- 86 20 93 % -- 08/26/22 0010 159/92 -- -- -- -- -- -- 08/26/22 0000 166/68 -- -- 86 22 94 % -- 08/25/22 2300 130/76 -- -- 84 29 93 % -- 08/25/22 2200 135/56 -- -- 79 22 94 % -- 08/25/22 2100 130/74 -- -- 70 17 92 % -- 08/25/22 2013 152/71 -- -- 85 -- -- -- 08/25/22 2000 160/68 97.7 ??F (36.5 ??C) Axillary 87 22 94 % -- 08/25/22 1900 145/69 -- -- 73 18 92 % -- 08/25/22 1854 163/64 -- -- -- -- -- -- 08/25/22 1817 165/74 -- -- 80 -- -- -- 08/25/22 1800 164/73 97.6 ??F (36.4 ??C) Axillary 75 24 94 % -- 08/25/22 1743 175/78 -- -- 80 -- -- -- 08/25/22 1700 157/74 -- -- 79 17 93 % -- 08/25/22 1600 148/76 97.6 ??F (36.4 ??C) Axillary 76 24 95 % -- 08/25/22 1500 145/81 -- -- 73 24 96 % -- 08/25/22 1400 125/70 98.8 ??F (37.1 ??C) Axillary 84 23 94 % -- 08/25/22 1300 152/77 98.7 ??F (37.1 ??C) -- 87 20 95 % -- Neurologic Exam: Mental status: Awake, alert, follows commands. Oriented in person and place. Language: Fluency intact, comprehension intact, repetition intact. Visual quesada: Intact bilaterally to confrontation. Neglect: No appreciable visual or tactile neglect noted. CN: Subtle left UMN facial palsy. Normal tone and bulk No abnormal movements. ?? Objective strength: ?? Proximal Upper Distal Upper Proximal Lower Distal Lower Right 4/5 4/5 4/5 4/5 Left 4/5 4/5 4/5 4/5 ?? Muscle Stretch Reflexes ?? BI TRI BR PAT ACH TOES Right 2 2 2 2 2 Down Left 2 2 2 2 2 Down ?? Bilateral suprapatellar reflex + ?? Sensory LT: symmetric and intact . ?? Cerebellar ?? FNF Right Intact Left Intact ?? Gait Deferred IMAGING: Expected progression of pontine hemorrhage. 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 It's been 12 days since her hemorrhagic stroke. CTH from 08/22 showed resolution of ICH. In a j2ee android developer his ideal BP goal would be < 130/80. However while she is in the hospital BP goalcan be <180 with j2ee android developer optimization. Recommendations: - Neuro checks q4 hours. - BP goal < 180 while in the hospital, but please try to optimize it's management. - provider network analyst optimization of BP <130/80. -Stat CTH if there is change in neurologic exam. - Call NCC for any question. - NCC signs off. Patient's case was discussed & staffed with NCC attending Dr. Roger. Ray Holden MD PGY3 Neurology Resident Associated attestation - Rebecca Roger MD - 08/26/2022 6:00 PM CDT I have verified the documentation of the resident including all history, exam, and medical decision-making details. I have personally performed a physical exam and have personally reviewed the data to support my medical decision-making as outlined in the medical student???s note, and I arrive independently at the same conclusion. Impression and Plan: Agree that for now can keep SBP < 180, however j2ee android developer goal should be directed towards normotension according to AHA guideline. Date of Service: 08/26/2022 Rebecca Roger MD Neurologic Critical Care Attending * Massiel Harvey RN - 08/24/2022 4:14 PM CDTAssociated Order(s): IP CONSULT TO SHEAR ASSEMBLER I have been consulted due to the possibility or diagnosis of stroke, chart reviewed. Patient Name: Kirsty Rea Admission: 08/15/2022 3:01 AM EMS Activated Code Stroke: No - Direct Admit to ICU Arrival Mode: Transfer from Outside Facility - [place] Arrival Service: [facility] Initial NIHSS Score: NIH Total: 1 (08/15/22 0400) Last Documented NIHSS Score: NIH Total: 3 (08/24/22 0800) Initial Blood Pressure: BP: (!) 143/118 (08/15/22 0315) Current Blood Pressure: BP: 128/57 (08/24/22 1400) Stroke Risk Factors: Age, Heart or Peripheral Vascular Disease and Hyperlipidemia Quality Measures - Risk Factor Modification VTE Prophylaxis by day 2: Received VTE Prophylaxis: Sequential Compression Device HGBA1C = Recent Labs Component Name 08/16/22 0044 HGBA1C 5.4 Appropriate Diet for patient based on HgBA1c: Cardiac Nursing Swallow Screen: Total Score of questionnaire (6 or greater did not advance to the water test): Total Row: 0 (08/15/22399) Water Test Results: Pass - (NO clinical signs of aspiration noted) - Obtain diet order. (08/15/22399) Evaluated by Therapy: Received Discharge Recommendation: Inpatient Rehab Written Stroke Education: Provided Education Personalized: Received Depression Screen Score = Received PHQ-2 PHQ2 TOTAL SCORE: 1 PHQ-9 Nursing pending course of action: 1) Complete stroke/TIA education daily. 2) Individualize stroke care plan, document daily. 3) Complete neuro checks and document as ordered by MD. 4) Complete NIHSS per MD orders. (If patient has an NIHSS deviation of 4 or greater from baseline, or per nursing judgement, please call Neurologist and repeat swallow screen evaluation.) Imaging: CT HEAD WO CONTRAST Result Date: 08/23/2022 IMPRESSION: 1. Evolving small volume of hemorrhage in the dorsal hilary with minimal surrounding vasogenic edema. No new areas of hyperdensities/new foci of hemorrhage.. > Interpreting Provider: Rosa Davis MD on 08/23/2022 11:[address] CHEST WO CONTRAST Result Date: 08/22/2022 IMPRESSION: 1.Bilateral, moderate right and small left, pleural effusions. 2.Suggestion of pulmonary congestion in the setting of mild cardiomegaly. 3.Indeterminate masslike para-bronchovascular consolidation along with segmental right lower lobe bronchus with interval development of right lower lobe atelectatic collapse. There is no clear correlate for these findings on prior chest radiographs. However, this may blend with the right main pulmonary artery on frontal views. Findings favor interval development of infectious/inflammatory etiology with postobstructive atelectasis/mucus plugging. Recommend short-term follow-up CT chest with contrast to document resolution. Recommend new baseline chest radiograph, PA and lateral if able. Findings verbally relayed to Dr. Guadalupe by Mikel Reyez M.D. at 1328 on 08/22/2022. > Dictated by Ron Marvin MD (transporter radiology) I, MIKEL REYEZ MD have personally reviewed and interpreted this examination/study. > Interpreting Provider: MD JUAN CARLOS on 08/22/2022 1:28 PM MRI ANGIO BRAIN ARTERIAL WO CONT Result Date: 08/16/2022 IMPRESSION: 1.Redemonstration of small right pontine hemorrhage with mild surrounding vasogenic edema. No significant mass effect. No supratentorial hydrocephalus. 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 3.Ot herwise, no large arterial occlusions or significant stenoses identified in the head. > Interpreting Provider: Kaylie Dao MD on 08/16/2022 10:32 AM MRI BRAIN WWO CONTRAST Result Date: 08/16/2022 IMPRESSION: 1.Redemonstration of small right pontine hemorrhage with mild surrounding vasogenic edema. No significant mass effect. No supratentorial hydrocephalus. 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 3.Ot herwise, no large arterial occlusions or significant stenoses identified in the head. > Interpreting Provider: Kaylie Dao MD on 08/16/2022 10:32 AM US RETROPERITONEAL COMPLETE Result Date: 08/20/2022 IMPRESSION: 1.Normal renal size. No evidence of nephrolithiasis, hydronephrosis, or solid renal mass. 2.1.5 x 1.1 cm simple cyst within the upper pole of the right kidney. 3.Right pleural effusion. > Dictated by Xiao Retana MD (transporter radiology). Corey Hester MD have personally reviewed and interpreted this examination/study. > Interpreting Provider: Corey Min MD on 08/20/2022 1:22 PM XR CHEST 1VW PORTABLE Result Date: 08/23/2022 IMPRESSION: Right greater than left pleural effusions with associated atelectasis and airspace disease with pulmonary vascular congestion on the right likely secondary to a layering component of the effusion. Overall, this appears worsened compared to chest x-ray from 08/21/2022 The masslike consolidation on the CT is not well visualized in this examination. Report dictated by Heath Wu MD, MD (transporter radiology). Juwan Hester have personally reviewed and interpreted this examination/study. > Interpreting Provider: Juwan Aceves on 08/23/2022 9:46 AM FL SWALLOWING FUNCTION STUDY Result Date: 08/22/2022 IMPRESSION: Fluoroscopy was provided for a procedure that was performed by Speech Therapy. Please see the Speech Therapy report for interpretation. Report dictated by German Aponte MD (transporter radiology) Corey Hester MD have personally reviewed and interpreted this examination/study. > Interpreting Provider: Corey Min MD on 08/22/2022 9:28 PM Thank you for allowing me to participate in the care of Kirsty Rea. Massiel Harvey, SCHUYLERN, CNRN, SCRN Complaint Investigations Officer, [facility] Office: [phone] Ascom: [phone] Email: [email or web address] Albina Thakkar, ERYN/MARIO - 08/24/2022 9:31 AM CDTAssociated Order(s): IP CONSULT TO NUTRITIONAL SERV Nutrition Re-Assessment Brief Synopsis: Patient is at Nutrition Risk; Specific criteria can be found in assessment below Nutrition Plan: Nepro at 40 ml/hr. Provides 1728 kcal, 78 g protein, 155 g carbohydrate, 698 ml free water. +100 ml q4 hrs free water flush or per MD if not on additional fluids Recommendations to Physician: Advance TF as tolerated Comments: RD consulted for TF recs. Pt on CPAP/venti mask. Receiving HD. Phos was 8 yesterday, currently 4.7. TF was running at 20 ml/hr overnight, NG tube clamped this AM. Last BM 08/23. niCARdipine, 0-15 mg/hr, Last Rate: 5 mg/hr (08/24/22 0552) Assessment: Med/Surg History and Clinical Diagnoses: past medical history of HTN, CKD3, Morphea and osteopenia transferred from [facility] to [facility] Neuro ICU for pontine intraparenchymal hemorrhage. Diet order accuracy Current diet order: NPO Current tube feeding order: nepro at 20 ml/hr Nutrition recommendation: agree with current nutrition order P.O.Intake for the past 48 hrs:No data recorded Supplement(s) Consumed- Last 48 hours None Food Allergies: No known food allergies GI Concerns: None Chewing/Swallowing: Dysphagia (NPO with TF) Pain affecting intake: No Admission weight: Weight: 167 lb 8.8 oz (76 kg) (08/15/22 0315) Recent Weights/Methods 08/10/2021 1329 12/28/2021 1330 03/08/2022 1715 08/15/2022 0315 08/18/2022 0501 08/23/2022 0400 08/23/2022 1940 08/24/2022 0400 Weight: 175 lb 6.4 oz (79.6 kg) 172 lb 6.4 oz (78.2 kg) 163 lb 12.8 oz (74.3 kg) 167 lb 8.8 oz (76 kg) 166 lb 6.4 oz (75.5 kg) 176 lb 5.9 oz (80 kg) 176 lb 5.9 oz (80 kg) 179 lb 10.8 oz (81.5 kg) Weight Method (Utilize Scales): -- -- -- -- Standing Bedscale -- Bedscale BMI: Body mass index is 27.33 kg/m??. BMI Range: Overweight Wt Comments: noted wt changes during admission, possibly fluid related or bedscale error. Height: 5' 7.99 (172.7 cm) IBW/lb (Calculated) Female: 139.96, Laboratory values reviewed. Recent Labs Component Name 08/24/22 0231 08/23/22 1629 08/23/22 0422 08/18/22 1011 08/17/22 0405 08/15/22 0339 03/09/22 1312 BUN 41* 69* 64* - 58* - 65* CREATININE 2.72* 4.06* 3.99* - 4.22* - 2.74* NA 135* 132* 132* - 134* - - POTASSIUM 3.4* 3.8 3.9 - 3.0* - 3.9 CL 97* 102 99 - 105 - - CO2 21* 15* 15* - 16* - 21 GLUCOSE 119* 106 129* - 105 - 99 CALCIUM 8.6 8.8 9.1 - 8.7 - 8.7 PROT - - - - 5.1* - - ALB 2.8* 2.8* 2.9* - 2.8* - - ALKPHOS - - - - - - 72 ALT - - - - - - 12 AST - - - - - - 14 ANIONGAP 20* 19* 22* - 16 - - BCR 15 17 16 - 14 - - OSMOLALITY 291 295 294 - 295 - - EGFR 17* 11* 11* - 10* - 16* EGFRAFR - - - - - - 18* - = values in this interval not displayed. Medications noted. Current Facility-Administered Medications Medication ??? 0.9% NaCl injection 3 mL And ??? 0.9% NaCl injection 1-10 mL ??? acetaminophen (Tylenol) tablet 500 mg ??? albuterol HFA (Proventil; Ventolin; Proair) 108 (90 Base) MCG/ACT inhaler 2 puff ??? albuterol-ipratropium (Duo-Neb) nebulizer solution 3 mL ??? amLODIPine (Norvasc) tablet 10 mg ??? ampicillin-sulbactam (Unasyn) 3 g in 0.9% NaCl IV 100 mL IVPB ??? cloNIDine (Catapres) tablet 0.2 mg ??? epoetin deyanira-EPBX (Retacrit) injection 7,000 Units ??? heparin injection 5,000 Units ??? hydrALAZINE (Apresoline) injection 15 mg ??? hydrALAZINE (Apresoline) tablet 100 mg ??? labetalol (Normodyne; Trandate) injection 20 mg ??? labetalol (Normodyne; Trandate) tablet 200 mg ??? niCARdipine (Cardene) 20 mg in 0.9% NaCl 200 mL infusion ??? polyethylene glycol 3350 (Miralax) packet 17 g ??? senna (Senokot) tablet 17.2 mg ??? sodium bicarbonate tablet 1,300 mg Skin/Wound: sacral ulcer (reddened area) Estimated Energy Needs: KCAL: 1900 (25kcal/kg of ABW) Protein (g): 76 (1g/kg of ABW) Fluid (ml): 1 ml/kcal Needs based on: Kcal/kg- (Comment) (ABW = 76kg) Recommended Access Route: PO Education needed: Stroke Nutrition Therapy Education Provided: Yes Expected level of compliance: Good Nutrition Care Process (1) Nutrition Diagnostic Statement: Inadequate oral intake related to:: decreased ability to consume or tolerate food and/or fluids due to illness as evidenced by:: oral intake insufficient to meet estimated requirements Nutrition Diagnostic Statement Progress: Nutrition problem continues Nutrition Intervention: Enteral nutrition: Monitoring: TF, BM, labs, meds, weight Evaluation: Nutrition Goal: Total intake will meet estimated nutrient needs Nutrition Goal Timeframe: Throughout stay Nutrition Goal Progress: Continue with current goal Ascom #: [id number] * Corie Fontenot MD - 08/22/2022 9:35 AM CDTAssociated Order(s): IP CONSULT TO LANDSCAPE SPECIALIST Images from the original note were not included. PULMONARY CONSULT NOTE Consult requested by Yellow Team Attending Physician:Héctor Silva MD Reason for consultation: acute hypoxic respiratory failure and pleural effusion HPI: Kirsty Rea is a 81 year old female w/ hx of HTN, CKD stage IV-V, morphea, who presented [facility] on 08/15/22 referred to Neuro-ICU for further care of pontine IPH. She presented initially to [facility] complaining of nausea with associated vomiting and generalized weakness. CTH showed pontine IPH measuring 9*8*10 mm without mass effect. The patient as been treated with IV antihypertensives due to poorly controlled hypertension. On arrival patient was on RA. subsequently patient noted to be more anxious with increased WOB a/w chest pain. EKGs on 08/20 and 08/21 all showed sinus bradycardia with 1st degree AV block, no ischemic changes. Troponin was slightly elevated (peak 0.12). Echo on 08/16 showed LV concentric hypertrophy with preserved function and evidence of intracardiac shunt. CXR on 08/21 showed b/l L>R sided pleural effusion with concomitant atelectasis. CT chest wo contrast on 08/22 showed moderate L sided pleural effusion with radha-bronchial consolid ation. Pulmonary was then consulted for further management of AHRF, pleural effusion and abnormal CT finding. Upon my evaluation the patient reports feeling better today. She was not able to provide detailed history but she confirmed the history above. She reported the SOB and the nauseas are better now. Shereported choking when she eats. Was not able to provide any more details. Nephrology are following the patient, patient received lasix 80 mg IV once on 08/21. Patient was not treated with Abx this admission. Review of Systems (Positives in BOLD) Gen: Weight gain, Weight loss, fatigue, weakness, fever/chills. HEENT: ALDANA, visual changes, hearing loss, tinnitus, hoarseness, sore throat. CV: Chest pain, palpitations, BLANDON, edema, syncope, orthopnea. Resp: SOB,resolved now cough, wheezing, sputum, hemoptysis. GI: Abd pain, N/V/,resolved now melena/hematochezia, constipation. : Dysuria, hematuria hesitancy, frequency. MSK: Weakness, joint pain, stiffness, limits in ROM. Neuro: Numbness/tingling in extremities, dizziness, dysarthria. Heme: Easy bruising/bleeding. Endo: Heat/cold intolerance, constipation/diarrhea, polyuria/polydipsia. Psych: Depression, anxiety, mood swings, SI or HI. Skin: Rash/itching or other skin lesions. Past Medical History: Diagnosis Date ??? CKD (chronic kidney disease) stage 3, GFR 30-59 ml/min ([facility]) proteinuria ??? HTN (hypertension), benign ??? 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 Morphea ??? Osteopenia Past Surgical History: Procedure Laterality Date ??? Appendectomy ??? Breast Reduction ??? Cholecystectomy, Laparoscopic ??? HX FRACTURE TX ??? OOPHORECTOMY 1971 ??? Parathyroidectomy 1999 Family [...] 10/31/1965 Quit date: 10/31/1983 Years since quittin.8 ??? Smokeless tobacco: Never Vaping Use ??? [...] on file Housing Stability: Not on file Allergies Allergen Reactions ??? Ramipril Other Other reaction(s): Other (See Comments) Kidney Damage Kidney Damage RENAE MEDS: ??? 0.9% NaCl 3 mL Intracatheter q8h ??? albuterol-ipratropium 3 mL Inhalation q4h ??? cloNIDine 0.2 mg Oral TID ??? epoetin Deyanira-EPBX (Retacrit) injection 7,000 Units Subcutaneous q7 days ??? heparin 5,000 Units Subcutaneous TID ??? hydrALAZINE 50 mg Oral TID ??? hydrOXYzine HCl 10 mg Oral TID ??? labetalol 200 mg Oral q12h ??? NIFEdipine CR osmotic 24hr 90 mg Oral QDAY ??? polyethylene glycol 3350 17 g Oral QDAY ??? senna 17.2 mg Oral QDAY ??? sodium bicarbonate 1,300 mg Oral TID ??? sodium chloride 1 g Oral TID WC ??? tamsulosin 0.8 mg Oral QDAY INFUSIONS: PRN MEDS: ??? SALINE LOCK, INSERT AND MAINTAIN AND 0.9% NaCl AND 0.9% NaCl ??? acetaminophen ??? albuterol HFA ??? hydrALAZINE ??? labetalol OBJECTIVE: Vitals: 08/22/22 0549 08/22/22 0758 08/22/22 0817 08/22/22 0839 BP: 148/57 (S) (!) 188/57 (S) 169/81 163/59 Pulse: 72 77 Resp: 20 Temp: 97.4 ??F (36.3 ??C) SpO2: 96% 97% 96% 97% Weight: Height: PE: Gen: Well developed, A&Ox3-4, in NAD on 4 L Facemask. HEENT: NC/AT, PERRLA, EOMI. Sclera non-icteric, clear conjunctiva, MMM. Neck: No LAD, or cartoid bruit. Trachea midline. CV: RRR, Normal S1 and S2. No murmur. No JVD. Chest: Decreased breath sounds at the bases, no wheezing, crackles, or rhonchi appreciated. Non-labored breathing. Abd: Soft, NT/ND, + normal bowel sounds, no HSM. Extr: +1-2 UE and LE edema, 2+ distal peripheral pulses, Normal muscle strength and ROM. Neuro: Follows commands, no focal neurologic deficits noted. Skin: Warm and dry, no rashes or other skin lesions present. LABS: Recent Labs Component Name 08/22/22 0747 08/21/22 0213 08/20/22 0250 WBC 5.4 3.7 4.0 HGB 8.2* 7.5* 7.3* HCT 24.3* 22.3* 21.8* MCV 84.7 83.5 83.5 Recent Labs Component Name 08/22/22 0747 08/21/22 1825 08/21/22 0213 NA 129* 127* 127* CL 99 101 101 CO2 17* 16* 15* BUN 63* 59* 63* CREATININE 4.00* 4.05* 4.29* Recent Labs Component Name 08/22/22 0747 08/21/22 1825 08/21/22 0213 08/20/22 0250 CALCIUM 9.1 8.8 8.6 8.2* PHOS 6.6* - 5.8* 6.1* Lab results smartLinks are not currently available Recent Labs Component Name 08/22/22 0747 08/17/22 0405 03/09/22 1312 PROT - 5.1* - ALB 3.0* 2.8* - ALKPHOS - - 72 AST - - 14 ALT - - 12 Recent Labs Component Name 03/09/22 1312 LIPASE 35 Lab results smartLinks are not currently available Recent Labs Component Name 08/22/22 0747 08/21/22 0213 08/20/22 0250 PT 12.2 11.9* 13.3 INR 0.9 0.9 1.0 Recent Labs Component Name 08/22/22 0747 08/21/22 2340 08/21/22 1655 TROPONINI 0.037* 0.058* 0.054* Recent Labs Component Name 08/22/22 0747 08/21/22 2340 08/21/22 1655 TROPONINI 0.037* 0.058* 0.054* Recent Labs Component Name 08/22/22 0816 08/21/22 1930 [id number] 16* 17* ASSESSMENT & PLAN: In short, this is a 81 years old female with h/o poorly controlled HTN, advanced CKD, who was referred from OSH due to N/V 2/2 pontine IPH. Her hospitalization was complicated with hypoxic respiratory failure # Acute hypoxic respiratory failure, pulmonary edema vs aspiration PNA, vs other # RLL peribronchial consolidation, favor aspiration pneumonitis vs pneumonia # Intracardiac shunt # Advanced CKD (IV-V) # hyponatremia, probable SIADH # Pontinue IPH # Poorly controlled HTN RECOMMENDATIONS: -- consider starting Abx to cover for possible aspiration PNA, as patient was referred from OSH, consider covering for resistant bacteria. -- get sputum culture, MRSA swab for now -- consider more aggressive diuresis as long as patient is hemodynamically stable, noted consideration for HD per nephrology -- Keep the patient NPO for now till more formal speech eval -- Get a LE duplex study as the patient is off AC per IPH, to r/o DVT/PE -- BP control per primary team -- incentive spirometry, PT/OT, out of bed as much as tolerated -- bronchial hygiene (Aerobika) -- other problems per primary team DVT ppx per primary team Patient to be staffed with pulmonary attending Corie Tripp MD Pulmonary Disease & Critical Care Fellow Division of Pulmonary, Critical Care and Sleep Medicine [facility] Pager-Amion Associated attestation - Aj Sylvester MD - 08/22/2022 7:07 PM CDT I have seen, examined and discussed the patient with the fellow and I agree with the the findings and plan of care/recommendations as documented by the fellow. Date of service: 08/22/2022 Aj Sylvester M.D. Sales Applications Engineer of Internal Medicine Division of Pulmonary, Critical Care and Sleep Medicine [facility] * Crystal Villaseñor RN - 08/17/2022 12:18 PM CDTAssociated Order(s): IP CONSULT TO PHYSICAL MED AND REHAB [facility] Rehab has initiated an evaluation per stroke protocol. Will continue to follow for medical stability and tolerance/participation in therapies. Thank you for the referral. 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 Thank you for referral, NIMO Kwok, TEO Stroke Bomb Squad Commander [phone] 08/16/2022 3:58 PM * María Isaac MD - 08/16/2022 3:20 PM CDTAssociated Order(s): IP CONSULT TO NEPHROLOGY [facility] Department of Nephrology History & Physical Date of Admission: 08/15/2022 Length of Stay: 1 Date of Service: 08/16/2022 Consulting Service: Neuro Critical Care Consulting Person: Jessica Encarnacion MD Reason for Consult: TOÑA on CKD5 HISTORY: Kirsty Rea is a 81 year old female w/PMH significant for CKD5 (baseline Cr ~3.3), HTN, morphea who presents to [facility] as transfer from OSH for evaluation in setting of intraparenchymal hemorrhage. Nephrology consulted for TOÑA on CKD5. In AM of 08/15 developed diffuse, generalized weakness in addition to N/V. Vomited numerous times although cannot endorse a specific number of episodes or how many hours this bothered her for. 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 On arrival VSS and wnl. Lab work-up notable for Hgb 8.4 (at baseline), Cr 3.74; repeat labs the following day notable for Hgb 7.0, Cr 4.27. Since arrival to [facility] she has been feeling great; weakness and N/V resolved, no change in urinary habits compared to baseline (urinates around once daily) and is without pain on urination or blood in her urine. Review of Systems: 10 point ROS performed and otherwise negative unless noted in the HPI Past Medical History: Diagnosis Date ??? CKD (chronic kidney disease) stage 3, GFR 30-59 ml/min ([facility]) proteinuria ??? HTN (hypertension), benign ??? 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 Morphea ??? Osteopenia Past Surgical History: Procedure Laterality Date ??? Appendectomy ??? Breast Reduction ??? Cholecystectomy, Laparoscopic ??? HX FRACTURE TX ??? OOPHORECTOMY 1971 ??? Parathyroidectomy 1999 Family [...] 10/31/1965 Quit date: 10/31/1983 Years since quittin.8 ??? Smokeless tobacco: Never Used Vaping Use [...] Encounter Medication Sig Dispense Refill ??? acetaminophen (TYLENOL) 500 MG capsule Take 500 mg by mouth every 4 hours as needed for Fever or Pain ??? Glycerin (OASIS TEARS PLUS PF OP) ??? hydroCHLOROthiazide (MICROZIDE) 12.5 MG capsule Take 1 (one) capsule by mouth once daily 90 capsule 3 ??? labetalol (NORMODYNE; TRANDATE) 200 MG tablet 1 tablet 2 times daily ??? labetalol (NORMODYNE; TRANDATE) 200 MG tablet Take 1 (one) tablet by mouth 2 times daily 180 tablet 3 ??? Multiple Vitamins-Minerals (ICAPS AREDS 2 PO) ??? NIFEdipine CR osmotic 24hr (PROCARDIA-XL) 90 MG tablet TAKE 1 TABLET ONE TIME EACH DAY ??? olopatadine (PATADAY) 0.2 % ophthalmic solution Instill 1 (one) drop into both eyes once daily 2.5 mL 0 ??? [place]-3 Fatty Acids (FISH OIL) 1200 MG ??? oxybutynin (DITROPAN) 5 MG tablet TAKE 1 TABLET BY MOUTH EVERY DAY 90 tablet 1 ??? RESTASIS 0.05 % ophthalmic suspension ??? triamcinolone acetonide (KENALOG) 0.1 % cream APPLY TO RASH ON BACK AND BODY TWICE A DAY NEEDED. AVOID FACE. 45 g 0 ??? XIIDRA 5 % opthalmic solution Hospital Medications: ??? 0.9% NaCl 3 mL Intracatheter q8h ??? gadoterate meglumine Intravenous Contrast - Once ??? labetalol 200 mg Oral q12h ??? perflutren lipid microsphere 0.5 mL Intravenous intra-Procedure multiple ??? polyethylene glycol 3350 17 g Oral QDAY ??? senna 17.2 mg Oral QDAY PRN Meds: ??? SALINE LOCK, INSERT AND MAINTAIN AND 0.9% NaCl AND 0.9% NaCl ??? labetalol OR hydrALAZINE OBJECTIVE: Vitals: 08/16/22 1203 08/16/22 1230 08/16/22 1300 08/16/22 1330 BP: 146/63 140/74 147/68 Pulse: 75 81 75 Resp: 12 Temp: 98.5 ??F (36.9 ??C) SpO2: 94% 96% 94% Weight: Height: Estimated body mass index is 25.48 kg/m?? as calculated from the following: Height as of this encounter: 5' 8 (1.727 m). Weight as of this encounter: 167 lb 8.8 oz (76 kg). Intake/Output Summary (Last 24 hours) at 08/16/2022 1522 Last data filed at 08/16/2022 1200 Gross per 24 hour Intake 3372.5 ml Output 875 ml Net 2497.5 ml Physical Exam General: NAD. Sitting upright in bed resting comfortably. Mild difficulty hearing. HENT: NC/AT Eyes: Anicteric. Non-injected. Chest: CTAB. No crackles or wheezes. No increased work of breathing. Cardiovascular: RRR. No murmurs, rubs, or gallops Abdomen: Soft. NT/ND. Normal BS+. Extremities: No signs of clubbing or cyanosis. Trace non-pitting edema near the ankles. Skin: Warm. Dry. Neurological: AOx3; conversational and follows commands. Moves all extremities spontaneously without issue. No focal deficits. Psych: Appropriate mood and affect LABS: CBC: Recent Labs Component Name 08/16/224308/15/2233803/09/221311 WBC 6.8 6.8 5.1 HGB 7.0* 8.4* 8.5* HCT 21.0* 24.8* 26.6* MCV 84.0 82.7 88.4 BMP: Recent Labs Component Name 08/16/224308/15/2233803/09/222 01/04/20 1515 NA 139 139 - 141 CL 106 108* - 102 CO2 18* 19* 21 27 BUN 56* 55* 65* 47* CREATININE 4.27* 3.74* 2.74* 2.1* Recent Labs Component Name 08/16/224308/15/2233803/09/22 1312 01/04/20 1515 CALCIUM 8.5 9.6 8.7 9.3 PHOS 5.2* - - 4.1 LFT: Recent Labs Component Name 03/09/22 131 ALKPHOS 72 AST 14 ALT 12 Recent Labs Component Name 03/09/22 1312 LIPASE 35 Recent Labs Component Name 01/04/20 1515 TSH 2.452 Coagulation: Recent Labs Component Name 08/16/224308/15/22338 PT 13.2 13.1 INR 1.0 1.0 Cardiac markers: Recent Labs Component Name 08/15/22 0817 08/15/22 0617 08/15/22 0339 TROPONINI 0.037* 0.030 0.035* IMAGING: MRI ANGIO BRAIN ARTERIAL WO CONT Result Date: 08/16/2022 IMPRESSION: 1.Redemonstration of small right pontine hemorrhage with mild surrounding vasogenic edema. No significant mass effect. No supratentorial hydrocephalus. 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 3.Ot herwise, no large arterial occlusions or significant stenoses identified in the head. > Interpreting Provider: Kaylie Dao MD on 08/16/2022 10:32 AM MRI BRAIN WWO CONTRAST Result Date: 08/16/2022 IMPRESSION: 1.Redemonstration of small right pontine hemorrhage with mild surrounding vasogenic edema. No significant mass effect. No supratentorial hydrocephalus. 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 3.Ot herwise, no large arterial occlusions or significant stenoses identified in the head. > Interpreting Provider: Kaylie Dao MD on 08/16/2022 10:32 AM ASSESSMENT AND PLAN: #TOÑA on CKD5 - Most likely prerenal in setting of vomiting, blood loss, diuretic use prior to presentation; other less likely etiologies include obstruction (does have some retention but urinary habits unchanged from home), infection (trace bacteria but no other signs to suggest) - Baseline Cr around 3.3 since 04/2022; CKD 2/2 HTN - Sees nephrology (Dr. Reyes) as outpatient; recent biopsy due to nephrotic range proteinuria that noted hypertensive nephrosclerosis, no acute findings PLAN: - Obtain urine creatinine and urine urea nitrogen to determine FENa, FEUrea - Bladder Scans q6h to evaluate for retention - Encourage PO intake; can hold on additional IVF given she is eating and drinking without issue atthis time - Avoid nephrotoxic medications and renally dose all medications that are given #Hypertension - Home Medications: HCTZ 12.5mg daily, Nifedipine ER 90mg, Labetalol 200mg BID - SBPs have been 130s-150s while here at [facility] PLAN: - Agree with restarting home labetalol - If additional BP control needed recommend resuming CCB as opposed to diuretic in setting of TOÑA on CKD #Normocytic Anemia - Hgb at presentation initially 8.4 (baseline) but dropped to 7.0 following IVF - Likely has component of anemia of chronic disease 2/2 renal dysfunction - Iron studies ordered while inpatient w/normal iron, although no ferritin PLAN: - Continue to monitor Hgb - Consider ferritin for additional evaluation - Transfuse for Hgb < 7.0 Patient will be seen and discussed with attending physician, Dr. Cintron. María Isaac MD Internal Medicine, PGY-3 08/16/2022 3:22 PM Associated attestation - Peggy Cintron MD - 08/16/2022 10:06 PM CDT Attending Addendum I have seen and examined the patient with the resident on 08/16/22 @ 4:05PM. I agree with the findings and plan of care as documented by the resident. In addition I note: 81 yo female with advanced chronic kidney disease due to hypertensive nephrosclerosis per kidney biopsy (based on Dr. Reyes's note) and other medical problems per resident's note,was transferred from OSH for further management of ICH. Noted recent nausea and vomiting, and takes HCTZ at home. The patient reports feeling better today, CV - absent rub, and ext - absent edema. Urine output record is unavailable. [id number] kidney disease in the setting of recent ICH, likely a prerenal component and anemia might be contributing as well. Agree with supportive care, cautiously lower BP, blood products transfusion, as indicated, and erythropoietin administration based on her recent outpatient DARÍO regimen. Please see resident (Dr. Isaac)'s note for further details * Aniyah Mcduffie, ERYN/MARIO - 08/16/2022 2:05 PM CDTAssociated Order(s): IP CONSULT TO NUTRITIONAL SERV Initial Nutrition Assessment Brief Synopsis: Patient is not at Nutrition Risk; Specific criteria can be found in assessment below Nutrition Plan: Continue current diet (cardiac) Recommendations to Physician: Continue nutrition plan. Comments: RD consulted per stroke protocol. Pt laying in bed during visit. Pt states she currently follows cardiac diet at home and that the new eduction is a good refresher. Last BM 08/[address] to follow. Assessment: Med/Surg History and Clinical Diagnoses: past medical history of HTN, CKD3, Morphea and osteopenia transferred from [facility] to [facility] Neuro ICU for pontine intraparenchymal hemorrhage. Height: 5' 8 (172.7 cm) Weight: 167 lb 8.8 oz (76 kg) BMI: Body mass index is 25.48 kg/m??. BMI Range: Overweight IBW/lb (Calculated) Female: 140, Recent Weights/Methods 01/04/2020 1439 07/30/2020 1059 02/02/2021 1413 08/10/2021 1329 12/28/2021 1330 03/08/2022 1715 08/15/2022 0315 Weight: 177 lb (80.3 kg) 181 lb 6.4 oz (82.3 kg) 177 lb 9.6 oz (80.6 kg) 175 lb 6.4 oz (79.6 kg) 172 lb 6.4 oz (78.2 kg) 163 lb 12.8 oz (74.3 kg) 167 lb 8.8 oz (76 kg) Wt Comments: Monitoring. Diet order accuracy Current diet order: Cardiac Standard Nutrition recommendation: agree with current nutrition order P.O.Intake for the past 48 hrs: % Meal Taken Av.3 % Min: 25 % Max: 50 % Supplement(s) Consumed- Last 48 hours None Food Allergies: No known food allergies GI Concerns: None Chewing/Swallowing: None Pain affecting intake: No Estimated Needs: KCAL: 1900 (25kcal/kg of ABW) Protein (g): 76 (1g/kg of ABW) Fluid (ml): 1 ml/kcal Needs based on: Kcal/kg- (Comment) (ABW = 76kg) Recommended Access Route: PO Laboratory values: Recent Labs Component Name 08/16/22 0044 08/15/22 0339 03/09/22 1312 01/04/20 1515 BUN 56* 55* 65* 47* CREATININE 4.27* 3.74* 2.74* 2.1* NA 139 139 - 141 POTASSIUM 3.1* 3.3* 3.9 3.6 CL 106 108* - 102 CO2 18* 19* 21 27 GLUCOSE 105 149* 99 98 CALCIUM 8.5 9.6 8.7 9.3 ALKPHOS - - 72 - ALT - - 12 - AST - - 14 - ANIONGAP 18 15 - 16 BCR 13 15 - OSMOLALITY 304* 306* - 304* EGFR 10* 12* 16* 23* EGFRAFR - - 18* - Recent Labs Component Name 08/16/22 0044 HGBA1C 5.4 EAG 108 Medications: Current Facility-Administered Medications Medication ??? 0.9% NaCl injection 3 mL And ??? 0.9% NaCl injection 1-10 mL ??? gadoterate meglumine (Dotarem/Clariscan) injection ??? labetalol (Normodyne; Trandate) injection 10 mg Or ??? hydrALAZINE (Apresoline) injection 10 mg ??? labetalol (Normodyne; Trandate) tablet 200 mg ??? perflutren lipid microsphere (Definity) injection 0.5 mL ??? polyethylene glycol 3350 (Miralax) packet 17 g ??? senna (Senokot) tablet 17.2 mg Skin/Wound: WDL Education needed: Stroke Nutrition Therapy Education Provided: Yes Expected level of compliance: Good Nutrition Care Process (1) Nutrition Diagnostic Statement: No nutrition diagnosis identified Monitoring: GI, PO intake, WT, labs, medications Evaluation: [phone] * Jam Cornell MD - 08/15/2022 4:03 AM CDTAssociated Order(s): IP CONSULT TO NEUROSURGERY Images from the original note were not included. Neurosurgery Consult Note Name: Kirsty Rea : 1940 Date of Admission:08/15/2022 Date of Consult:08/15/2022 Time of Consult: 4:00 AM Reason for consult: ICH HISTORY OF PRESENT ILLNESS (HPI): Patient is a 81 year old female with a past medical history of HTN, CKD3, that presents as a transfer from OSH due to pontine ICH. Patient reported generalized weakness and N/V yesterday afternoon. Ahead CT was obtained at OSH which demonstrated ICH. She was transferred to [facility] for higher level of care. Patient denies taking aspirin, plavix, or blood thinners. 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 [place]hea Osteopenia Past Surgical History: Procedure Laterality Date Appendectomy Breast Reduction Cholecystectomy, Laparoscopic HX FRACTURE TX OOPHORECTOMY 1972 Parathyroidectomy 1999 Allergies Allergen Reactions Ramipril Other Other reaction(s): Other (See Comments) Kidney Damage Kidney Damage Current Medications acetaminophen (TYLENOL) 500 MG capsule Take 500 mg by mouth every 4 hours as needed for Fever or Pain Glycerin (OASIS TEARS PLUS PF OP) hydroCHLOROthiazide (MICROZIDE) 12.5 MG capsule Take 1 (one) capsule by mouth once daily labetalol (NORMODYNE; TRANDATE) 200 MG tablet 1 tablet 2 times daily labetalol (NORMODYNE; TRANDATE) 200 MG tablet Take 1 (one) tablet by mouth 2 times daily Multiple Vitamins-Minerals (ICAPS AREDS 2 PO) NIFEdipine CR osmotic 24hr (PROCARDIA-XL) 90 MG tablet TAKE 1 TABLET ONE TIME EACH DAY olopatadine (PATADAY) 0.2 % ophthalmic solution Instill 1 (one) drop into both eyes once daily [place]-3 Fatty Acids (FISH OIL) 1200 MG oxybutynin (DITROPAN) 5 MG tablet TAKE 1 TABLET BY MOUTH EVERY DAY RESTASIS 0.05 % ophthalmic suspension triamcinolone acetonide (KENALOG) 0.1 % cream APPLY TO RASH ON BACK AND BODY TWICE A DAY NEEDED.AVOID FACE. XIIDRA 5 % opthalmic solution Current Facility-Administered Medications Medication 0.9% NaCl injection 3 mL And 0.9% NaCl injection 1-10 mL labetalol (Normodyne; Trandate) injection 10 mg Or hydrALAZINE (Apresoline) injection 10 mg niCARdipine (Cardene) 20 mg in 0.9% NaCl 200 mL infusion Social History Tobacco Use Smoking status: Former Smoker Packs/day: 1.00 Start date: 10/31/1965 Quit date: 10/31/1983 Years since quittin.8 Smokeless tobacco: Never Used Substance Use Topics Alcohol use: Yes Alcohol/week: 0.8 standard drinks Family History Problem Relation Name Age of Onset Hypertension Father Hypertension Brother REVIEW OF SYSTEMS Pertinent items per HPI. PHYSICAL EXAM BP 150/61 Pulse 67 Temp 98.7 ??F (37.1 ??C) (Oral) Resp 14 Ht 5' 8 (1.727 m) Wt 167 lb 8.8 oz (76 kg) SpO2 96% Neuro: awake, oriented to name, hospital, and date, ou=r, EOMI, face symmetric, tongue midline, no drift, full strength in all extremities LABORATORY Recent Labs Component Name 08/15/22338 WBC 6.8 HGB 8.4* HCT 24.8* PLTCOUNT 203 Recent Labs Component Name 08/15/2233803/09/22 1312 NA 139 - POTASSIUM 3.3* 3.9 CHLORIDE - 109 CO2 19* 21 BUN 55* 65* CREATININE 3.74* 2.74* GLUCOSE 149* 99 Recent Labs Component Name 08/15/[address] head: Assessment: 81 year old female with pontine ICH. GCS 15. ICH score on arrival: 2 (age, infratentorial) Plan: - Continue to follow neuro exam, q1h neuro checks - Please repeat CT head 6 hours after prior scan - Normal Na goal - Hold any antiplatelets/anticoagulation at this time - Page Neurosurgery with any acute decline in neuro exam and obtain stat head CT - Overall care per Neuro ICU Case to be discussed with Dr. Cornell. Domenic Esparza MD 08/15/2022 6:04 AM Staff note Will FU on MRI and MRA brain with and without. documented in this encounter Miscellaneous Notes * Clinical References AVS - Jessica Garcia MD - 09/09/2022 2:17 PM TECHNICIAN HELPER INSTRUMENT 15448 Discharge Instructions for Acute Kidney Injury You have been diagnosed with acute kidney injury. This means that your kidneys are not working properly. When both kidneys are healthy, they help filter out fluid and waste from the blood and body. Acute kidney injury has many causes. These include urinary blockages, infection, lack of enough bloodsupply, and medicines that can injure kidneys. In some cases, acute kidney injury is short- term (temporary). This type lasts several days to a few months. This is because the kidney can repair itself. But acute kidney injury can also result in chronic kidney disease or end stage renal failure. Hereare some instructions for you to follow as you recover. Home care ?? Follow any instructions for eating and drinking given to you by your healthcare provider. o Drink less fluid, if instructed by your healthcare provider. o Keep a record of everything you eat and drink. ?? Measure the amount of urine and stool you have each day. ?? Weigh yourself every day, at the same time of day, and in the same kind of clothes. Keep a dailyrecord of your daily weights. ?? Take your temperature every day. Keep a record of the results. ?? Learn to take your own blood pressure (BP). Your healthcare provider can teach you how to correctly measure your BP. Keep a record of your results. Bring the record to your follow-up appointments.Ask your healthcare provider when you should seek emergency medical attention. Your provider will tell you what blood pressure reading is dangerous. ?? Stay away from people who have infections. This includes people with colds, bronchitis, or skin conditions. ?? Practice good personal hygiene. Wash your hands often. This is especially important if you have a catheter in place when you leave the hospital. Doing so helps keep you safe from infection. ?? Take your medicines exactly as directed. ?? You may need frequent blood and urine tests. These are done to monitor your kidney function. Follow-up care Follow up with your healthcare provider, or as advised. When to call your healthcare provider Call your healthcare provider right away if you have any of these: ?? Signs of bladder infection, such as urinating more often, burning or pain when you pee, pain above your pubic bone, blood in your urine, or trouble starting your urine stream ?? Signs of infection around your catheter, such as redness, swelling, warmth, or fluid leaking ?? Rapid weight loss or weight gain, such as 3 pounds or more in 24 hours or 6 pounds or more in 7 days ?? Fever above 100.4?? F ( 38??C ) or as directed by your healthcare provider ?? Chills ?? Muscle aches ?? Night sweats ?? Very little or no urine output ?? Swelling of your hands, legs, or feet ?? Back pain ?? Abdominal pain ?? Extreme tiredness Last Reviewed Date: 2020 ?? [id number] [employer]. All rights reserved. This information is not intended as a substitute for professional medical care. Always follow your healthcare professional's instructions. NICIAN HELPER INSTRUMENT * Clinical References MARIO - Jessica Garcia MD - 09/09/2022 2:17 PM TECHNICIAN HELPER INSTRUMENT Images from the original note were not included. Controlling Your High Blood Pressure - Video Watch to learn what high blood pressure is and how to know if you have it. To view the video go to this web address: [email or web address] Or, scan this QR code with your smart phone ?? [employer] NICIAN HELPER INSTRUMENT * Clinical References MARIO - Massiel Harvey RN - 08/24/2022 4:26 PM CDT Images from the original note were not included. [id number] What Is Hemorrhagic Stroke? The brain needs a constant supply of blood to work. During a stroke, blood stops flowing to part ofthe brain. The affected area is damaged. Its functions are harmed or even lost. Most strokes are caused by a blockage in a blood vessel that supplies the brain (ischemic stroke). They can also occur if a blood vessel in the brain breaks open (ruptures). This is a hemorrhagic stroke. The carotids are large arteries that carry blood from the heart to the brain. How a hemorrhagic stroke occurs Hemorrhagic stroke occurs when a blood vessel in the brain ruptures. This lets blood spill into or build up in nearby brain tissue. The extra blood presses on those brain cells. It can damage them oreven cause them to . Other brain cells because their normal blood supply is cut off because of high pressure in the skull. Blood from a ruptured artery puts pressure on the brain and damages brain cells. Last Reviewed Date: 2021 ?? [employer]. All rights reserved. This information is not intended as a substitute for professional medical care. Always follow your healthcare professional's instructions. * Clinical References AVS - Massiel Harvey RN - 08/24/2022 4:26 PM CDT Images from the original note were not included. [id number] Understanding the Link Between High Blood Pressure and Stroke Each day that your blood pressure is too high, your chances of having a stroke are increased. Normal blood pressure is less than 120/80 millimeters of mercury (mmHg). This means systolic of less [id number] mmHg and diastolic of less than 80 mmHg. A stroke is a loss of brain function caused by a sudden lack of blood to part of the brain. Stroke can be caused by the damage that ongoing high blood pressure causes in your vessels. If the affected vessel stops supplying blood to the brain, a stroke happens. How high blood pressure damages blood vessels Vessels thicken When blood presses against a vessel wall with too much force, muscles in the wall lose their ability to stretch. This causes the wall to thicken, which narrows the vessel passage and reduces blood flow. Clots form When blood pressure is too high, it can damage blood vessel feliciano and create scar tissue. Fat and cholesterol (plaque) collect in the damaged spots. Blood cells stick to the plaque, forming a mass called a clot. A clot can block blood flow in the vessel. Vessels break Sometimes blood flows with enough force to weaken a vessel wall. If the vessel is small or damaged,the wall can break. When this happens, blood leaks into nearby tissue and kills cells. Other cells may because blood cannot reach them. Know the symptoms of stroke During a stroke, blood supply to the brain is suddenly cut off. But with fast medical help, a better recovery is more likely. Don?t wait. Call 911 if you have any of these: ?? Sudden weakness or numbness on 1 side of the face or body, including a leg or an arm ?? Sudden trouble seeing with 1 or both eyes ?? Sudden double vision ?? Sudden trouble talking, such as slurred speech ?? Sudden severe headache ?? Sudden problems using or understanding words ?? Sudden confusion ?? Sudden dizziness or loss of balance ?? Seizures for the first time ?? Any of these symptoms that happen and then go away Last Reviewed Date: 2020 ?? [id number] [employer]. All rights reserved. This information is not intended as a substitute for professional medical care. Always follow your healthcare professional's instructions. * Code/Rapid Response Event - Melody Frias RN - 08/21/2022 7:20 PM CDT RAPID RESPONSE EVENT NOTE [address] [address] Patient: Kirsty Rea Location: : 1940 Reason for Admission: spontan head bleed Provider Teams Team Primary Team Specialty Team Pager [facility] Team Yes Internal Medicine Event Date/Time: 08/21/2022 @19:20 Summary of Events: The Rapid Response Team (MATERIAL HAULER) was paged for increased work of breathing and shortness of breath. On arrival at the bedside the pt appeared to be in respiratory distress. Pt was on NRB 2 15L SpO2 100%. Pt stated she was having difficulty breathing and the mask was giving her relief. At this medicine admission called to beside for farther evaluation of the pt. Orders received and ABG drawn, EKG done, 80mg IV lasix given once. Based on ABG results pt weaned off NRB to 1L NC per medicine team. Vitals signs as charted. Vital Signs: Patient Vitals for the past 24 hrs: Temp Pulse Resp BP SpO2 O2 % (FiO2) 08/21/22 1932 97.4 ??F (36.3 ??C) (!) 120 18 (!) 194/75 100 % 100 % 08/21/22 1402 97.4 ??F (36.3 ??C) 69 22 156/59 -- -- 08/21/22 1301 -- -- -- 148/62 -- -- 08/21/22 0818 97.4 ??F (36.3 ??C) 70 18 168/93 98 % -- 08/21/22 0009 97.2 ??F (36.2 ??C) 65 18 113/85 98 % -- Outcome:Pt remains in current room and will continue to monitor closely. Melody Frias RN Rapid Response Nurse * Coding Query - Héctor Silva MD - 08/17/2022 7:56 AM CDT DOCUMENTATION CLARIFICATION REQUEST TO: Dr. 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 Please include clinical findings supporting your diagnosis. (Select Edit, then F2 to respond) Cerebral edema documented in this encounter Plan of Treatment Upcoming Encounters Date Type Department Care Team (Late st Contact Info) Description 12/11/2024 10:30 AM TECHNICIAN HELPER INSTRUMENT Appointment [facility] [address] [place] [address], [address] [address] Jarett Reinoso MD [address] [place] [id number] Christine Benitez MD [address] [facility] [address] Keyshawn Krueger MD [address] [place] [id number] Armando Ferro, [address] [address] Scheduled Orders Name Type Priority Associated Diagnoses Order Schedule REASSESSMENT PARAMETERS Respiratory Care Routine ONCE for 1 Occurrences starting 08/24/2022 until 08/24/2022 documented as of this encounter Procedures Procedure Name Priority Date/Time Associated Diagnosis Comments HEMODIALYSIS INPATIENT Routine 2 5:44 PM TECHNICIAN HELPER INSTRUMENT CBC W/O DIFFERENTIAL Routine 09/08/2022 1:48 AM TECHNICIAN HELPER INSTRUMENT RENAL FUNCTION PANEL AM Draw 09/08/2022 1:48 AM TECHNICIAN HELPER INSTRUMENT HEMODIALYSIS INPATIENT Routine 2 6:45 PM TECHNICIAN HELPER INSTRUMENT CBC W/O DIFFERENTIAL Routine 09/06/2022 7:01 AM TECHNICIAN HELPER INSTRUMENT RENAL FUNCTION PANEL AM Draw 09/06/2022 7:01 AM TECHNICIAN HELPER INSTRUMENT MAGNESIUM BLOOD Routine 09/04/2022 6:36 AM CDT HEMODIALYSIS INPATIENT Routine 2 5:36 PM CDT CARDIAC EKG ORDER 09/03/2022 1:1 5 PM CDT APHERESIS/TRANSFUSION ORDER 09/03/2022 1:06 PM CDT XR CHEST 1VW PORTABLE Routine 09/03/2022 8:25 AM CDT Fever, unspecified fever cause CBC W/O DIFFERENTIAL Routine 09/03/2022 6:49 AM CDT RENAL FUNCTION PANEL AM Draw 09/03/2022 6:49 AM CDT MAGNESIUM BLOOD Routine 09/03/2022 6:49 AM CDT HEMODIALYSIS INPATIENT Routine 2 10:40 AM CDT MAGNESIUM BLOOD Routine 09/02/2022 5:[address] CHEST WO CONTRAST Routine 09/01/2022 5:41 PM CDT Acute respiratory failure with hypoxia (HCC) FL SWALLOWING FUNCTION STUDY Routine 09/01/2022 10:00 AM CDT Acute respiratory failure with hypoxia (HCC) CBC W/O DIFFERENTIAL Routine 09/01/2022 7:06 AM CDT RENAL FUNCTION PANEL AM Draw 09/01/2022 7:06 AM CDT HEPATITIS B CORE ANTIBODY TOTAL AM Draw 09/01/2022 7:06 AM CDT FOLATE Routine 09/01/2022 7:06 AM CDT VITAMIN B12 AM Draw 09/01/2022 7:06 AM CDT NOCTURNAL DESATURATION STUDY Routine 08/31/2022 11:08 AM CDT RENAL FUNCTION PANEL STAT 08/31/2022 9:03 AM CDT XR CHEST 1VW PORTABLE Routine 08/31/2022 8:45 AM CDT Acute respiratory failure with hypoxia (HCC) HEMODIALYSIS INPATIENT Routine 6:17 AM CDT CBC W/O DIFFERENTIAL Routine 08/30/2022 4:20 AM CDT RENAL FUNCTION PANEL AM Draw 08/30/2022 4:20 AM CDT TRANSFUSE RED BLOOD CELL LEUKOREDUCED UNIT(S) Routine 08/29/2022 9:58 AM CDT PREPARE RBC LEUKOREDUCED UNIT Routine 08/29/2022 9:45 AM CDT TYPE + SCREEN PANEL STAT 08/29/2022 6 :48 AM CDT CBC W/O DIFFERENTIAL Routine 08/29/2022 2:04 AM CDT RENAL FUNCTION PANEL AM Draw 08/29/2022 2:04 AM CDT MAGNESIUM BLOOD Routine 08/29/2022 2:04 AM CDT CBC W/O DIFFERENTIAL Routine 08/28/2022 4:16 AM CDT RENAL FUNCTION PANEL AM Draw 08/28/2022 4:16 AM CDT MAGNESIUM BLOOD Routine 08/28/2022 4:16 AM CDT DRY ULTRAFILTRATION Routine 08/27/2022 3 :06 PM CDT DRY ULTRAFILTRATION Routine 08/27/2022 2 :51 PM CDT HEMODIALYSIS INPATIENT Routine 2:51 PM CDT PT-INR SLH Routine 08/27/2022 4:39 AM CDT CBC W/O DIFFERENTIAL Routine 08/27/2022 4:39 AM CDT RENAL FUNCTION PANEL Timed 08/27/2022 4:39 AM CDT MAGNESIUM BLOOD Routine 08/27/2022 4:39 AM CDT GLUCOSE - POINT OF CARE Routine 08/26/20 11:48 PM CDT GLUCOSE - POINT OF CARE Routine 08/26/20 22 6:52 PM CDT RENAL FUNCTION PANEL Timed 08/26/2022 3:33 PM CDT PT-INR SLH Routine 08/26/2022 3:30 AM CDT CBC W/O DIFFERENTIAL Routine 08/26/2022 3:30 AM CDT RENAL FUNCTION PANEL Timed 08/26/2022 3:30 AM CDT MAGNESIUM BLOOD Routine 08/26/2022 3:30 AM CDT GLUCOSE - POINT OF CARE Routine 08/26/20 12:10 AM CDT GLUCOSE - POINT OF CARE Routine 08/25/20 6:17 PM CDT BASIC METABOLIC PANEL (CALCIUM TOTAL) STAT 08/25/2022 4:12 PM CDT RENAL FUNCTION PANEL Timed 08/25/2022 4:12 PM CDT POTASSIUM WHOLE BLD STAT 08/25/2022 1 :20 PM CDT Hypertensive emergency MRSA DNA PCR STAT 08/25/2022 1:18 PM CDT IR CENTRAL LINE INSERT TUNNEL Routine 08/25/2022 12:32 PM CDT Stage 3 chronic kidney disease, unspecified whether stage 3a or 3b CKD (HCC) Acute renal failure, unspecified acute renal failure type (HCC) HEMODIALYSIS INPATIENT Routine 11:26 AM CDT PT-INR SLH Routine 08/25/2022 3:38 AM CDT CBC W/O DIFFERENTIAL Routine 08/25/2022 3:38 AM CDT RENAL FUNCTION PANEL Timed 08/25/2022 3:38 AM CDT MAGNESIUM BLOOD Routine 08/25/2022 3:38 AM CDT GLUCOSE - POINT OF CARE Routine 08/25/20 1:28 AM CDT XR CHEST 1VW PORTABLE Routine 08/24/2022 6:26 PM CDT Acute bronchitis, unspecified organism RENAL FUNCTION PANEL Timed 08/24/2022 4:36 PM CDT GLUCOSE - POINT OF CARE Routine 08/24/20 12:16 PM CDT HEMODIALYSIS INPATIENT Routine 6:00 AM CDT XR CHEST 1VW PORTABLE Routine 08/24/2022 5:01 AM CDT Acute renal failure, unspecified acute renal failure type (HCC) PT-INR SLH Routine 08/24/2022 2:31 AM CDT CBC W/O DIFFERENTIAL Routine 08/24/2022 2:31 AM CDT RENAL FUNCTION PANEL Timed 08/24/2022 2:31 AM CDT MAGNESIUM BLOOD Routine 08/24/2022 2:31 AM CDT HEPATITIS B SURFACE ANTIBODY QUANT JABARI 08/23/2022 8:22 PM CDT HEPATITIS B SURFACE ANTIGEN W RFLX CONFIRMATION STAT 08/23/2022 8:22 PM CDT XR CHEST 1VW PORTABLE STAT 08/23/2022 5:11 PM CDT Acute bronchitis, unspecified organism RENAL FUNCTION PANEL Timed 08/23/2022 4:29 PM CDT HEMODIALYSIS INPATIENT Routine 2 12:18 PM CDT ECHO LIMITED OR FOLLOWUP STAT 08/23/2022 9:34 AM CDT Primary hypertension HEMODIALYSIS INPATIENT Routine 2 8:48 AM CDT PT-INR SLH Routine 08/23/2022 4:22 AM CDT CBC W/O DIFFERENTIAL Routine 08/23/2022 4:22 AM CDT RENAL FUNCTION PANEL Timed 08/23/2022 4:22 AM CDT MAGNESIUM BLOOD Routine 08/23/2022 4:22 AM CDT XR CHEST 1VW PORTABLE Routine 08/23/2022 2:49 AM CDT SOB (shortness of breath) LACTIC ACID BLOOD STAT 08/22/2022 8:2 1 PM CDT BLOOD GASES ART + COOX PANEL Routine 08/22/2022 6:01 PM CDT XR ABDOMEN KUB PORTABLE STAT 08/22/20 3:42 PM CDT Encounter for imaging study to confirm nasogastric (NG) tube placement RENAL FUNCTION PANEL Timed 08/22/2022 3:28 PM CDT FL SWALLOWING FUNCTION STUDY Routine 08/22/2022 2:30 PM CDT Swallowing dysfunction CT HEAD WO CONTRAST STAT 08/22/2022 1 :40 PM CDT Subarachnoid hemorrhage (HCC) CT CHEST WO CONTRAST STAT 08/22/2022 8:33 AM CDT Chest pain, unspecified type XR CHEST 1VW Routine 08/22/2022 8:31 AM CDT SOB (shortness of breath) BLOOD GASES ART + COOX PANEL STAT 08/22/2022 8:16 AM CDT PT-INR SLH Routine 08/22/2022 7:47 AM CDT TROPONIN I STAT 08/22/2022 7:47 AM CDT CBC W/O DIFFERENTIAL Routine 08/22/2022 7:47 AM CDT RENAL FUNCTION PANEL Timed 08/22/2022 7:47 AM CDT MAGNESIUM BLOOD Routine 08/22/2022 7:47 AM CDT UREA NITROGEN URINE RANDOM Routine 08/22/2022 3:52 AM CDT OSMOLALITY URINE JABARI 08/22/2022 3:52 AM CDT LYTES (NA K CL) URINE RANDOM PANEL Routine 08/22/2022 3:52 AM CDT CREATININE URINE RANDOM Routine 08/22/20 3:52 AM CDT TROPONIN I Timed 08/21/2022 11:40 PM CDT BLOOD GASES ART + COOX PANEL Routine 08/21/2022 7:30 PM CDT EKG 12-LEAD Routine 08/21/2022 7:22 PM CDT SOB (shortness of breath) BASIC METABOLIC PANEL (CALCIUM TOTAL) Timed 08/21/2022 6:25 PM CDT TROPONIN I Timed 08/21/2022 4:55 PM CDT SODIUM URINE RANDOM Routine 08/21/2022 1 2:04 PM CDT UREA NITROGEN URINE RANDOM Routine 08/21/2022 12:04 PM CDT OSMOLALITY URINE JABARI 08/21/2022 12:0 4 PM CDT CREATININE URINE RANDOM Routine 08/21/20 12:04 PM CDT LYTES (NA K) URINE RANDOM PANEL Routine 08/21/2022 12:04 PM CDT EKG 12-LEAD Routine 08/21/2022 11:52 AM CDT SOB (shortness of breath) TROPONIN I Timed 08/21/2022 11:23 AM CDT D-DIMER STAT 08/21/2022 11:23 AM CDT XR CHEST 1VW PORTABLE STAT 08/21/2022 10:23 AM CDT SOB (shortness of breath) PT-INR SLH Routine 08/21/2022 2:13 AM CDT CBC W/O DIFFERENTIAL Routine 08/21/2022 2:13 AM CDT BASIC METABOLIC PANEL (CALCIUM TOTAL) Routine 08/21/2022 2:13 AM CDT PHOSPHORUS BLOOD Routine 08/21/2022 2:13 AM CDT MAGNESIUM BLOOD Routine 08/21/2022 2:13 AM CDT PROCALCITONIN LEVEL Timed 08/20/2022 1 2:44 PM CDT TROPONIN I Routine 08/20/2022 12:44 PM CDT US RETROPERITONEAL COMPLETE Routine 08/20/2022 11:34 AM CDT Hyponatremia EKG 12-LEAD Routine 08/20/2022 10:08 AM CDT QT prolongation TROPONIN I STAT 08/20/2022 7:51 AM CDT XR CHEST 1VW PORTABLE STAT 08/20/2022 7:42 AM CDT SOB (shortness of breath) PT-INR SLH Routine 08/20/2022 2:50 AM CDT TSH REFLEX FREE T4 Routine 08/20/2022 2: 50 AM CDT CBC W/O DIFFERENTIAL Routine 08/20/2022 2:50 AM CDT BASIC METABOLIC PANEL (CALCIUM TOTAL) Routine 08/20/2022 2:50 AM CDT TRIGLYCERIDES BLOOD Routine 08/20/2022 2 :50 AM CDT PHOSPHORUS BLOOD Routine 08/20/2022 2:50 AM CDT OSMOLALITY BLOOD Routine 08/20/2022 2:50 AM CDT MAGNESIUM BLOOD Routine 08/20/2022 2:50 AM CDT BASIC METABOLIC PANEL (CALCIUM TOTAL) Routine 08/19/2022 9:00 PM CDT URINALYSIS REFLEX TO MICROSCOPIC NO CULTURE Routine 08/19/2022 1:00 PM CDT SODIUM URINE RANDOM Routine 08/19/2022 1 :00 PM CDT PROTEIN CREATININE RATIO URINE RANDOM PNL Routine 08/19/2022 1:00 PM CDT OSMOLALITY URINE JABARI 08/19/2022 1:00 PM CDT PROTEIN ELECTROPHORESIS URINE TIMED Routine 08/19/2022 1:00 PM CDT PT-INR SLH Routine 08/19/2022 10:56 AM CDT IMMUNOFIXATION BLOOD AM Draw 08/19/2022 10:56 AM CDT CBC W/O DIFFERENTIAL Routine 08/19/2022 10:56 AM CDT BASIC METABOLIC PANEL (CALCIUM TOTAL) Routine 08/19/2022 10:56 AM CDT PHOSPHORUS BLOOD Routine 08/19/2022 10:5 6 AM CDT MAGNESIUM BLOOD Routine 08/19/2022 10:56 AM CDT PROTEIN ELECTROPHORESIS BLOOD Routine 08/19/2022 10:56 AM CDT TRANSFUSE RED BLOOD CELL LEUKOREDUCED UNIT(S) Routine 08/18/2022 10:53 PM CDT PREPARE RBC LEUKOREDUCED UNIT Routine 08/18/2022 10:48 PM CDT BLOOD TYPE VERIFICATION Routine 08/18/20 7:52 PM CDT TYPE + SCREEN PANEL Routine 08/18/2022 2 :30 PM CDT PT-INR SLH Routine 08/18/2022 10:11 AM CDT CBC W/O DIFFERENTIAL Routine 08/18/2022 10:11 AM CDT BASIC METABOLIC PANEL (CALCIUM TOTAL) Routine 08/18/2022 10:11 AM CDT PHOSPHORUS BLOOD Routine 08/18/2022 10:1 1 AM CDT MAGNESIUM BLOOD Routine 08/18/2022 10:11 AM CDT PTH INTACT W/O CALCIUM Routine 7:46 AM CDT FERRITIN Routine 08/17/2022 7:46 AM CDT CBC W/O DIFFERENTIAL Routine 08/17/2022 4:26 AM CDT PT-INR SLH Routine 08/17/2022 4:20 AM CDT BASIC METABOLIC PANEL (CALCIUM TOTAL) Routine 08/17/2022 4:05 AM CDT PROTEIN TOTAL BLOOD Add on 08/17/2022 4 :05 AM CDT PHOSPHORUS BLOOD Routine 08/17/2022 4:05 AM CDT MAGNESIUM BLOOD Routine 08/17/2022 4:05 AM CDT ALBUMIN BLOOD AM Draw 08/17/2022 4:05 AM CDT OT EVAL AND TREAT Routine 08/16/2022 9:5 3 AM CDT PT EVAL AND TREAT Routine 08/16/2022 9:5 3 AM CDT URINALYSIS W/MICROSCOPIC NO CULTURE Routine 08/16/2022 9:42 AM CDT LYTES (NA K) URINE RANDOM PANEL Routine 08/16/2022 9:42 AM CDT IRON + TRANSFERRIN PANEL Routine 08/16/2022 9:36 AM CDT ECHO COMPLETE W BUBBLE STUDY STAT 08/16/2022 9:30 AM CDT Hemorrhagic stroke (HCC) XR CHEST 1VW PORTABLE STAT 08/16/2022 8:37 AM CDT 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 PT-INR SLH Routine 08/16/2022 12:44 AM CDT HEMOGLOBIN A1C Routine 08/16/2022 12:44 AM CDT CBC W/O DIFFERENTIAL Routine 08/16/2022 12:44 AM CDT BASIC METABOLIC PANEL (CALCIUM TOTAL) Routine 08/16/2022 12:44 AM CDT PHOSPHORUS BLOOD Routine 08/16/2022 12:4 4 AM CDT MAGNESIUM BLOOD Routine 08/16/2022 12:44 AM CDT MRI ANGIO BRAIN ARTERIAL WO CONT Routine 08/15/2022 10:25 PM CDT Intracranial hemorrhage, nontraumatic (HCC) MRI BRAIN WWO CONTRAST Routine 10:03 PM CDT Hemorrhagic stroke (HCC) EKG 12-LEAD Routine 08/15/2022 11:29 AM CDT Hypertensive chronic kidney disease with stage 1 through stage 4 chronic kidney disease, or unspecified chronic kidney disease TROPONIN I Routine 08/15/2022 8:17 AM CDT TROPONIN I Routine 08/15/2022 6:17 AM CDT PT-INR SLH Routine 08/15/2022 3:39 AM CDT TROPONIN I Routine 08/15/2022 3:39 AM CDT CBC W/O DIFFERENTIAL Routine 08/15/2022 3:39 AM CDT BASIC METABOLIC PANEL (CALCIUM TOTAL) Routine 08/15/2022 3:39 AM CDT documented in this encounter Results * (ABNORMAL) RENAL FUNCTION PANEL (09/08/2022 1:48 AM TECHNICIAN HELPER INSTRUMENT) BUN 39(H) 7 - 26 mg/dL 09/08/2022 3:17 AM [facility] Creatinine 2.69(H) 0.56 - 0.96 mg/dL 09/08/2022 3:17 AM [facility] Sodium 137 136 - 145 mmol/L 09/08/2022 3:17 AM [facility] Potassium 3.4(L) 3.5 - 4.5 mmol/L 09/08/2022 3:17 AM [facility] Chloride 99 98 - 107 mmol/L 09/08/2022 3:17 AM [facility] CO2 23 22 - 29 mmol/L 09/08/2022 3:17 AM [facility] Glucose 104 70 - 115 mg/dL 09/08/2022 3:17 AM [facility] Albumin 2.6(L) 3.4 - 5.0 g/dL 09/08/2022 3:17 AM [facility] Calcium 9.2 8.4 - 10.2 mg/dL 09/08/2022 3:17 AM [facility] Phosphorus 3.5 2.9 - 5.1 mg/dL 09/08/2022 3:17 AM [facility] Anion Gap 18 8 - 18 09/08/2022 3:17 AM [facility] BUN/Creatinine Ratio 14 7 - 23 09/08/2022 3:17 AM [facility] Osmolality Calculated 294 270 - 300 mOsm/kg 09/08/2022 3:17 AM [facility] eGFR by CKD-EPI 17(L) >=90 mL/min/1.7 3 m2 09/08/2022 3:17 AM [facility] Blood BLOOD SPECIMEN / Unknown Lab Venipuncture / Unknown 09/08/2022 1:48 AM TECHNICIAN HELPER INSTRUMENT 09/08/2022 2:44 AM TECHNICIAN HEL[employer]STRUMENT Jero Orozco MD LAB - CHEMISTRY PATRICIA CASIANO [facility] Organization Address City/[facility] Co de Phone Number [address] [address] [phone] * (ABNORMAL) CBC W/O DIFFERENTIAL (09/08/2022 1:48 AM TECHNICIAN HELPER INSTRUMENT) WBC 7.2 3.5 - 10.5 10? 3 /uL 09/08/2022 2:53 AM [facility] RBC 2.98(L) 3.80 - 5.20 10? 6 /uL 09/08/2022 2:53 AM [facility] Hemoglobin 8.6(L) 12.0 - 15.6 g/dL 09/08/2022 2:53 AM [facility] Hematocrit 26.1(L) 35.0 - 45.0 % 09/08/2022 2:53 AM [facility] MCV 87.6 80.7 - 98.3 fL 09/08/2022 2:53 AM [facility] MCH 28.9 26.7 - 34.0 pg 09/08/2022 2:53 AM [facility] MCHC 33.0 30.8 - 35.9 g/dL 09/08/2022 2:53 AM [facility] RDW-SD 42.5 36.0 - 50.0 fL 09/08/2022 2:53 AM [facility] RDW-CV 14.0 11.2 - 14.8 % 09/08/2022 2:53 AM [facility] Platelet Count 268 150 - 400 10? 3 /uL 09/08/2022 2:53 AM [facility] MPV 10.1 9.4 - 12.9 fL 09/08/2022 2:53 AM [facility] nRBC Absolute 0.00 0 10? 3 /uL 09/08/2022 2:53 AM [facility] nRBC Auto 0.0 0 /100 WBC 09/08/2022 2:53 AM [facility] Blood BLOOD SPECIMEN / Unknown Lab Venipuncture / Unknown 09/08/2022 1:48 AM TECHNICIAN HELPER INSTRUMENT 09/08/2022 2:44 AM [facility] Jero Orozco MD LAB - HEMATOLOGY ORD ERABLES [facility] [address] [place] [address] [phone] * (ABNORMAL) RENAL FUNCTION PANEL (09/06/2022 7:01 AM [facility]) BUN 77(H) 7 - 26 mg/dL 09/06/2022 8:02 AM [facility] Creatinine 4.31(H) 0.56 - 0.96 mg/dL 09/06/2022 8:02 AM [facility] Sodium 136 136 - 145 mmol/L 09/06/2022 8:02 AM [facility] Potassium 4.0 3.5 - 4.5 mmol/L 09/06/2022 8:02 AM [facility] Chloride 95(L) 98 - 107 mmol/L 09/06/2022 8:02 AM [facility] CO2 18(L) 22 - 29 mmol/L 09/06/2022 8:02 AM [facility] Glucose 100 70 - 115 mg/dL 09/06/2022 8:02 AM [facility] Albumin 2.4(L) 3.4 - 5.0 g/dL 09/06/2022 8:02 AM [facility] Calcium 9.2 8.4 - 10.2 mg/dL 09/06/2022 8:02 AM [facility] Phosphorus 6.6(H) 2.9 - 5.1 mg/dL 09/06/2022 8:02 AM [facility] Anion Gap 27(H) 8 - 18 09/06/2022 8:02 AM [facility] BUN/Creatinine Ratio 18 7 - 23 09/06/2022 8:02 AM [facility] Osmolality Calculated 305(H) 270 - 300 mOsm/kg 09/06/2022 8:02 AM [facility] eGFR by CKD-EPI 10(L) >=90 mL/min/1.7 3 m2 09/06/2022 8:02 AM [facility] Blood BLOOD SPECIMEN / Unknown Lab Venipuncture / Unknown 09/06/2022 7:01 AM TECHNICIAN HELPER INSTRUMENT 09/06/2022 7:25 AM [facility] Jero Orozco MD LAB - CHEMISTRY ORDE [facility] Organization Address City/State/ZIP Co de Phone Number [facility] [address] [place] [address], [facility] [phone] * (ABNORMAL) CBC W/O DIFFERENTIAL (09/06/2022 7:01 AM [facility]) WBC 7.9 3.5 - 10.5 10? 3 /uL 09/06/2022 7:36 AM [facility] RBC 2.82(L) 3.80 - 5.20 10? 6 /uL 09/06/2022 7:36 AM [facility] Hemoglobin 8.2(L) 12.0 - 15.6 g/dL 09/06/2022 7:36 AM [facility] Hematocrit 24.6(L) 35.0 - 45.0 % 09/06/2022 7:36 AM [facility] MCV 87.2 80.7 - 98.3 fL 09/06/2022 7:36 AM [facility] MCH 29.1 26.7 - 34.0 pg 09/06/2022 7:36 AM [facility] MCHC 33.3 30.8 - 35.9 g/dL 09/06/2022 7:36 AM [facility] RDW-SD 43.1 36.0 - 50.0 fL 09/06/2022 7:36 AM [facility] RDW-CV 14.0 11.2 - 14.8 % 09/06/2022 7:36 AM [facility] Platelet Count 223 150 - 400 10? 3 /uL 09/06/2022 7:36 AM [facility] MPV 9.5 9.4 - 12.9 fL 09/06/2022 7:36 AM [facility] nRBC Absolute 0.00 0 10? 3 /uL 09/06/2022 7:36 AM [facility] nRBC Auto 0.0 0 /100 WBC 09/06/2022 7:36 AM [facility] Blood BLOOD SPECIMEN / Unknown Lab Venipuncture / Unknown 09/06/2022 7:01 AM TECHNICIAN HELPER INSTRUMENT 09/06/2022 7:25 AM TECHNICIAN HELPER [employer]STRUMENT Jero Orozco MD LAB - HEMATOLOGY ORD ERABLES [address] [address], [facility] [phone] * MAGNESIUM BLOOD (09/04/2022 6:36 AM CDT) Magnesium 2.2 1.6 - 2.6 mg/dL 09/04/2022 7:30 AM CDT [facility] Blood BLOOD SPECIMEN / Unknown Lab Venipuncture / Unknown 09/04/2022 6:36 AM CDT 09/04/2022 7:03 AM CDT Almaz Patel MD LAB - CHEMISTRY OR DERABLES [address] [address], [facility] [phone] * CARDIAC EKG ORDER (09/03/2022 1:15 PM CDT) Narrative 09/03/2022 1:15 PM CDT Ordered by an unspecified provider. Scanned Document CARDIAC SERVICES ORD ERABLES * APHERESIS/TRANSFUSION ORDER (09/03/2022 1:06 PM CDT) Narrative 09/03/2022 1:06 PM CDT Ordered by an unspecified provider. Scanned Document NURSING - VITAL SIGN S AND ASSESSMENT * XR CHEST 1VW PORTABLE (09/03/2022 8:25 AM CDT) Anatomical Region Laterality Modality Chest Radiographic Marychuy ging 09/03/2022 9:26 AM CDT Narrative 09/03/2022 4:36 PM CDT PROCEDURE: ??XR CHEST 1VW PORTABLE, DATE/TIME OF EXAM: ??09/03/2022 8:25 AM, LOCATION ??[facility] INDICATION: R50.9: Fever, unspecified fever cause ADDITIONAL CLINICAL INFORMATION: Ordering Provider Reason For Exam: ??new fever COMPARISON: CT chest from 09/01/22 FINDINGS/IMPRESSION: Central venous catheter with internal jugular approach is seen terminating within the cavoatrial junction. Atherosclerosis of the descending aorta noted. Marked opacity of the right lower chest is unchanged from prior and is likely due to chronic elevation of the diaphragm, atelectasis, and/or pleural fluid. The right upper lung is clear. The left lung is clear. Trace to small volume left pleural effusion no pneumothorax is identified. Right heart border is obscured. The visible cardiomediastinal contours are normal. Right upper quadrant surgical clips are noted. Report dictated by Joseph Goodwin DO (transporter radiology). I, Narciso Oseguera MD have personally reviewed and interpreted this examination/study. > Interpreting Provider: Narciso Oseguera MD on 09/03/2022 4:36 PM Procedure Note Narciso Oseguera MD - 09/03/2022 PROCEDURE: XR CHEST 1VW PORTABLE, DATE/TIME OF EXAM: 09/03/2022 8:25AM, LOCATION [facility] INDICATION: R50.9: Fever, unspecified fever cause ADDITIONAL CLINICAL INFORMATION: Ordering Provider Reason For Exam: new fever COMPARISON: CT chest from 09/01/22 FINDINGS/IMPRESSION: Central venous catheter with internal jugular approach is seenterminating within the cavoatrial junction. Atherosclerosis of the descending aorta noted. Marked opacity of theright lower chest is unchanged from prior and is likely due to chronicelevation of the diaphragm, atelectasis, and/or pleural fluid. The right upperlung is clear. The left lung is clear. Trace to small volume left pleural effusion no pneumothorax is identified. Right heart border is obscured.The visible cardiomediastinal contours are normal. Right upper quadrant surgical clips are noted. Report dictated by Joseph Goodwin DO (transporter radiology). I, Narciso Oseguera MD have personally reviewed and interpreted this examination/study. > Interpreting Provider: Narciso Oseguera MD on 09/03/2022 4:36 PM Almaz Patel MD DIAGNOSTIC IMAGING ORDERABLES * MAGNESIUM BLOOD (09/03/2022 6:49 AM CDT) Magnesium 2.2 1.6 - 2.6 mg/dL 09/03/2022 7:38 AM CDT [facility] Blood BLOOD SPECIMEN / Unknown Lab Venipuncture / Unknown 09/03/2022 6:49 AM CDT 09/03/2022 7:11 AM CDT Almaz Patel MD LAB - CHEMISTRY OR DERABLES Performing Organization Address City/State/[facility] Co de Phone Number [address] [address], [facility] [phone] * (ABNORMAL) RENAL FUNCTION PANEL (09/03/2022 6:49 AM CDT) BUN 45(H) 7 - 26 mg/dL 09/03/2022 7:38 AM CDT [facility] Creatinine 3.18(H) 0.56 - 0.96 mg/dL 09/03/2022 7:38 AM T [facility] Sodium 136 136 - 145 mmol/L 09/03/2022 7:38 AM T [facility] Potassium 4.8(H) 3.5 - 4.5 mmol/L 09/03/2022 7:38 AM [facility] Chloride 101 98 - 107 mmol/L 09/03/2022 7:38 AM [facility] CO2 23 22 - 29 mmol/L 09/03/2022 7:38 AM [facility] Glucose 117(H) 70 - 115 mg/dL 09/03/2022 7:38 AM [facility] Albumin 2.4(L) 3.4 - 5.0 g/dL 09/03/2022 7:38 AM [facility] Calcium 9.5 8.4 - 10.2 mg/dL 09/03/2022 7:38 AM [facility] Phosphorus 4.1 2.9 - 5.1 mg/dL 09/03/2022 7:38 AM [facility] Anion Gap 17 8 - 18 09/03/2022 7:38 AM [facility] BUN/Creatinine Ratio 14 7 - 23 09/03/2022 7:38 AM [facility] Osmolality Calculated 295 270 - 300 mOsm/kg 09/03/2022 7:38 AM [facility] eGFR by CKD-EPI 14(L) >=90 mL/min/1.7 3 m2 09/03/2022 7:38 AM [facility] Blood BLOOD SPECIMEN / Unknown Lab Venipuncture / Unknown 09/03/2022 6:49 AM CDT 09/03/2022 7:11 AM CDT Jero Orozco MD LAB - CHEMISTRY PATRICIA CASIANO [facility] Organization Address City/[facility] Co de Phone Number [address] [address], [facility] [phone] * (ABNORMAL) CBC W/O DIFFERENTIAL (09/03/2022 6:49 AM CDT) WBC 8.5 3.5 - 10.5 10? 3 /uL 09/03/2022 7:27 AM [facility] RBC 2.72(L) 3.80 - 5.20 10? 6 /uL 09/03/2022 7:27 AM [facility] Hemoglobin 7.8(L) 12.0 - 15.6 g/dL 09/03/2022 7:27 AM [facility] Hematocrit 24.0(L) 35.0 - 45.0 % 09/03/2022 7:27 AM [facility] MCV 88.2 80.7 - 98.3 fL 09/03/2022 7:27 AM [facility] MCH 28.7 26.7 - 34.0 pg 09/03/2022 7:27 AM [facility] MCHC 32.5 30.8 - 35.9 g/dL 09/03/2022 7:27 AM [facility] RDW-SD 45.1 36.0 - 50.0 fL 09/03/2022 7:27 AM [facility] RDW-CV 14.7 11.2 - 14.8 % 09/03/2022 7:27 AM [facility] Platelet Count 214 150 - 400 10? 3 /uL 09/03/2022 7:27 AM [facility] MPV 9.6 9.4 - 12.9 fL 09/03/2022 7:27 AM [facility] nRBC Absolute 0.00 0 10? 3 /uL 09/03/2022 7:27 AM [facility] nRBC Auto 0.0 0 /100 WBC 09/03/2022 7:27 AM [facility] Blood BLOOD SPECIMEN / Unknown Lab Venipuncture / Unknown 09/03/2022 6:49 AM CDT 09/03/2022 7:11 AM T Jero Orozco MD LAB - HEMATOLOGY ORD ERABLES [facility] [address] [place] [address], [facility] [phone] * MAGNESIUM BLOOD (09/02/2022 5:16 AM CDT) Magnesium 2.2 1.6 - 2.6 mg/dL 09/02/2022 6:40 AM [facility] Blood BLOOD SPECIMEN / Unknown Lab Venipuncture / Unknown 09/02/2022 5:16 AM CDT 09/02/2022 5:57 AM CDT Almaz Patel MD LAB - CHEMISTRY OR DERABLES [facility] [address] [place] [address], [facility] [phone] * CT CHEST WO CONTRAST (09/01/2022 5:41 PM CDT) Anatomical Region Laterality Modality Chest Computed Tomogra phy 09/01/2022 6:34 PM CDT Impressions 09/02/2022 11:00 AM CDT Impression: 1.Atelectasis involving most of the right lower lobe. Lesser degree of middle lobe atelectasis. Mild left lung atelectasis. 2.Trace right pleural effusion, decreased. No left pleural effusion. > Dictated by Glendy Martínez MD (transporter radiology). I, Kevin Casas MD have personally reviewed and interpreted this examination/study. > Interpreting Provider: Kevin Casas MD on 09/02/2022 11:00 AM Narrative 09/02/2022 11:00 AM CDT PROCEDURE: ??CT CHEST WO CONTRAST, DATE/TIME OF EXAM: ??09/01/2022 5:41 PM, LOCATION ??[facility] INDICATION: J96.01: Acute respiratory [...] DATE/TIME OF EXAM: 09/01/2022 5:41 PM, LOCATION [facility] INDICATION: J96.01: Acute respiratory [...] effusion. > Dictated by Glendy Martínez MD (transporter radiology). Kevin Hester MD have personally reviewed and interpreted this examination/study. > Interpreting Provider: Kevin Casas MD on 09/02/2022 11:00 AM Almaz Patel MD CT ORDERABLES * FL SWALLOWING FUNCTION STUDY (09/01/2022 10:00 AM CDT) Anatomical Region Laterality Modality Chest Radiographic Marychuy ging 09/01/2022 9:56 AM CDT Impressions 09/01/2022 3:47 PM CDT IMPRESSION: Modified barium swallow fluoroscopy as described. Please see detailed report from speech pathology staff. Narciso Hester MD have personally reviewed and interpreted this examination/study. > Interpreting Provider: Narciso Oseguera MD on 09/01/2022 3:47 PM Narrative 09/01/2022 3:47 PM CDT PROCEDURE: ??FL SWALLOWING FUNCTION STUDY, DATE/TIME OF EXAM: ??09/01/2022 9:22 AM, LOCATION ??[facility] INDICATION: J96.01: Acute respiratory failure with hypoxia ([facility]/HCC) ADDITIONAL CLINICAL INFORMATION: Ordering Provider Reason For Exam: ??rule out aspiration COMPARISON: None. TECHNIQUE: Modified barium swallow fluoroscopy performed in conjunction with speech pathology staff. The speech pathologist administered varying thickness barium liquids and solids under direct Cine fluoroscopy. FINDINGS: Fluoroscopy provided for the purpose of speech pathology swallowing study. Please see speech pathology report for details. FLUOROSCOPY TIME: 132.8 seconds Procedure Note Narciso Oseguera MD - 09/01/2022 PROCEDURE: FL SWALLOWING FUNCTION STUDY, DATE/TIME OF EXAM: 09/01/2022 9:22 AM, LOCATION [facility] INDICATION: J96.01: Acute respiratory [...] detailed report from speech pathology staff. I, Narciso Oseguera MD have personally reviewed and interpreted this examination/study. > Interpreting Provider: Narciso Oseguera MD on 09/01/2022 3:47 PM Almaz Patel MD FLUOROSCOPY JACQUES OROZCO * (ABNORMAL) RENAL FUNCTION PANEL (09/01/2022 7:06 AM [facility]) BUN 72(H) 7 - 26 mg/dL 09/01/2022 8:15 AM [facility] Creatinine 3.83(H) 0.56 - 0.96 mg/dL 09/01/2022 8:15 AM [facility] Sodium 135(L) 136 - 145 mmol/L 09/01/2022 8:15 AM [facility] Potassium 4.2 3.5 - 4.5 mmol/L 09/01/2022 8:15 AM [facility] Chloride 100 98 - 107 mmol/L 09/01/2022 8:15 AM [facility] CO2 27 22 - 29 mmol/L 09/01/2022 8:15 AM [facility] Glucose 146(H) 70 - 115 mg/dL 09/01/2022 8:15 AM [facility] Albumin 2.5(L) 3.4 - 5.0 g/dL 09/01/2022 8:15 AM [facility] Calcium 9.6 8.4 - 10.2 mg/dL 09/01/2022 8:15 AM [facility] Phosphorus 3.6 2.9 - 5.1 mg/dL 09/01/2022 8:15 AM [facility] Anion Gap 12 8 - 18 09/01/2022 8:15 AM [facility] BUN/Creatinine Ratio 19 7 - 23 09/01/2022 8:15 AM [facility] Osmolality Calculated 304(H) 270 - 300 mOsm/kg 09/01/2022 8:15 AM [facility] eGFR by CKD-EPI 11(L) >=90 mL/min/1.7 3 m2 09/01/2022 8:15 AM [facility] Blood BLOOD SPECIMEN / Unknown Lab Venipuncture / Unknown 09/01/2022 7:06 AM CDT 09/01/2022 7:40 AM CDT Jero Orozco MD LAB - CHEMISTRY PATRICIA CASIANO [facility] [address] [place] [address], [facility] [phone] * (ABNORMAL) CBC W/O DIFFERENTIAL (09/01/2022 7:06 AM CDT) WBC 8.8 3.5 - 10.5 10? 3 /uL 09/01/2022 7:51 AM CDT [facility] RBC 2.58(L) 3.80 - 5.20 10? 6 /uL 09/01/2022 7:51 AM [facility] Hemoglobin 7.4(L) 12.0 - 15.6 g/dL 09/01/2022 7:51 AM [facility] Hematocrit 23.3(L) 35.0 - 45.0 % 09/01/2022 7:51 AM [facility] MCV 90.3 80.7 - 98.3 fL 09/01/2022 7:51 AM [facility] MCH 28.7 26.7 - 34.0 pg 09/01/2022 7:51 AM [facility] MCHC 31.8 30.8 - 35.9 g/dL 09/01/2022 7:51 AM [facility] RDW-SD 45.4 36.0 - 50.0 fL 09/01/2022 7:51 AM [facility] RDW-CV 14.4 11.2 - 14.8 % 09/01/2022 7:51 AM [facility] Platelet Count 205 150 - 400 10? 3 /uL 09/01/2022 7:51 AM [facility] MPV 9.6 9.4 - 12.9 fL 09/01/2022 7:51 AM [facility] nRBC Absolute 0.00 0 10? 3 /uL 09/01/2022 7:51 AM [facility] nRBC Auto 0.0 0 /100 WBC 09/01/2022 7:51 AM CDT [facility] Blood BLOOD SPECIMEN / Unknown Lab Venipuncture / Unknown 09/01/2022 7:06 AM CDT 09/01/2022 7:40 AM CDT Jero Orozco MD LAB - HEMATOLOGY ORD ERABLES Performing Organization Address City/[facility]/ZIP Co de Phone Number [address] [address], [place] [phone] * HEPATITIS B CORE ANTIBODY TOTAL (09/01/2022 7:06 AM CDT) HBc Antibody Total Non-reacti ve Non-reacti ve 09/01/2022 10:02 AM CDT [facility] Blood BLOOD SPECIMEN / Unknown Lab Venipuncture / Unknown 09/01/2022 7:06 AM CDT 09/01/2022 7:39 AM CDT Josh Harrell MD LAB - CHEMISTRY ORDSundeep CASIANO Performing Organization Address [facility]/ZIP Co de Phone Number [address] [address], [place] [phone] * FOLATE (09/01/2022 7:06 AM CDT) Folate 12.3 7.0 - 31.4 ng/mL 09/01/2022 10:17 AM CDT [facility] Blood BLOOD SPECIMEN / Unknown Lab Venipuncture / Unknown 09/01/2022 7:06 AM CDT 09/01/2022 7:40 AM CDT Almaz Patel MD LAB - CHEMISTRY OR DERABLES Performing Organization Address City/[facility]/ZIP Co de Phone Number [address] [address], [place] [phone] * VITAMIN B12 (09/01/2022 7:06 AM CDT) Vitamin B12 665 213 - 816 pg/mL 09/01/2022 10:17 AM CDT [facility] Blood BLOOD SPECIMEN / Unknown Lab Venipuncture / Unknown 09/01/2022 7:06 AM CDT 09/01/2022 7:40 AM CDT Almaz Patel MD LAB - CHEMISTRY OR DERABLES [facility] [address] [place] [address], [facility] [phone] * NOCTURNAL DESATURATION STUDY (08/31/2022 11:08 AM [...] of Pulmonary, Critical Care, & Sleep Medicine [facility] [employer] [facility] 09/01/2022 , 2:00 PM Narrative Artem Villa MD - 08/31/2022 11:08 AM CDT Estuardo Lala RCP ? 08/31/2022 11:14 AM Nocturnal Oxygen Desaturation study set up and completed by Kerry Pete commissioning specialist RT. ??Patient on RA ?? (Device/FiO2 or liter flow/Settings/etc) during study. ??Results uploaded to Message Bus and shared with Dr. Allen M.D., Tire Stripper reading PFT's. ??Final report with interpretation will be posted in Results Review under Pulse Oximetry, Continuous . ?? Procedure Note Estuardo Lala RCP - 08/31/2022 11:08 AM CDT Images from the original note were not included. Nocturnal Oxygen Desaturation study set up and completed by Kerry Pete commissioning specialist RT. Patient on RA (Device/FiO2 or literflow/Settings/etc) during study. Results uploaded to Message Bus and shared withDr. Allen M.D., T[employer] Stripper reading PFT's. Final report withinterpretation will be posted in Results Review under Pulse Oximetry,Continuous . Jero Orozco MD RESPIRATORY THERAPY ORDERABLES * (ABNORMAL) RENAL FUNCTION PANEL (08/31/2022 9:03 AM [facility]) BUN 45(H) 7 - 26 mg/dL 08/31/2022 9:41 AM [facility] Creatinine 2.66(H) 0.56 - 0.96 mg/dL 08/31/2022 9:41 AM [facility] Sodium 135(L) 136 - 145 mmol/L 08/31/2022 9:41 AM [facility] Potassium 4.0 3.5 - 4.5 mmol/L 08/31/2022 9:41 AM [facility] Chloride 101 98 - 107 mmol/L 08/31/2022 9:41 AM [facility] CO2 26 22 - 29 mmol/L 08/31/2022 9:41 AM [facility] Glucose 135(H) 70 - 115 mg/dL 08/31/2022 9:41 AM [facility] Albumin 2.5(L) 3.4 - 5.0 g/dL 08/31/2022 9:41 AM [facility] Calcium 9.3 8.4 - 10.2 mg/dL 08/31/2022 9:41 AM [facility] Phosphorus 2.8(L) 2.9 - 5.1 mg/dL 08/31/2022 9:41 AM [facility] Anion Gap 12 8 - 18 08/31/2022 9:41 AM [facility] BUN/Creatinine Ratio 17 7 - 23 08/31/2022 9:41 AM [facility] Osmolality Calculated 294 270 - 300 mOsm/kg 08/31/2022 9:41 AM [facility] eGFR by CKD-EPI 18(L) >=90 mL/min/1.7 3 m2 08/31/2022 9:41 AM CDT [facility] Blood BLOOD SPECIMEN / Unknown Lab Venipuncture / Unknown 08/31/2022 9:03 AM CDT 08/31/2022 9:12 AM CDT Josh Harrell MD LAB - CHEMISTRY PATRICIA Garcia Organization Address City/State/ZIP Co de Phone Number [facility] [address] [place] [address], [facility] [phone] * XR CHEST 1VW PORTABLE (08/31/2022 8:45 AM CDT) Anatomical Region Laterality Modality Chest Radiographic Marychuy ging 08/31/2022 11:3 8 AM CDT Narrative 08/31/2022 2:14 PM CDT PROCEDURE: ??XR CHEST 1VW PORTABLE, DATE/TIME OF EXAM: ??08/31/2022 8:46 AM, LOCATION ??[facility] INDICATION: J96.01: Acute respiratory failure with hypoxia (CMS/HCC) ADDITIONAL CLINICAL INFORMATION: Ordering Provider Reason For Exam: ??eval pulm edema COMPARISON: Chest x-ray 08/24/2022 FINDINGS/IMPRESSION: Right internal jugular approach central venous catheter terminates in superior vena cava. The gastric tube loops in the stomach with the tip in the body. Right upper quadrant surgical clips are seen. Marked opacity in the right lower chest may be due to elevation of the diaphragm, atelectasis, and pleural fluid. The right upper lung field is clear. The left lung is clear. The pulmonary vasculature is upper limits of normal. There is small left pleural fluid. No pneumothorax. The right heart border is obscured. Visible cardiomediastinal contours are normal. The aorta is atherosclerotic. Report dictated by Heath Wu MD, MD (transporter radiology). I, Debby James MD have personally reviewed and interpreted this examination/study. > Interpreting Provider: Debby James MD on 08/31/2022 2:14 PM Procedure Note Debby James MD - 08/31/2022 PROCEDURE: XR CHEST 1VW PORTABLE, DATE/TIME OF EXAM: 08/31/2022 8:46AM, LOCATION [facility] INDICATION: J96.01: Acute respiratory failure with hypoxia (CMS/HCC) ADDITIONAL CLINICAL INFORMATION: Ordering Provider Reason For Exam: eval pulm edema COMPARISON: Chest x-ray 08/24/2022 FINDINGS/IMPRESSION: Right internal jugular approach central venous catheter terminates in superior vena cava. The gastric tube loops in the stomach with the tip in the body. Right upper quadrant surgical clips are seen. Marked opacity in the right lower chest may be due to elevation of the diaphragm, atelectasis, and pleural fluid. The right upper lung field is clear. The left lung is clear. The pulmonary vasculature is upper limitsof normal. There is small left pleural fluid. No pneumothorax. The rightheart border is obscured. Visible cardiomediastinal contours are normal. The aorta is atherosclerotic. Report dictated by Heath Wu MD, MD (transporter radiology). I, Debby James MD have personally reviewed and interpreted this examination/study. > Interpreting Provider: Debby James MD on 08/31/2022 2:14 PM Josh Harrell MD DIAGNOSTIC IMAGING O RDERABLES * (ABNORMAL) RENAL FUNCTION PANEL (08/30/2022 4:20 AM T) BUN 73(H) 7 - 26 mg/dL 08/30/2022 5:21 AM [facility] Creatinine 3.44(H) 0.56 - 0.96 mg/dL 08/30/2022 5:21 AM [facility] Sodium 139 136 - 145 mmol/L 08/30/2022 5:21 AM [facility] Potassium 3.7 3.5 - 4.5 mmol/L 08/30/2022 5:21 AM [facility] Chloride 104 98 - 107 mmol/L 08/30/2022 5:21 AM [facility] CO2 25 22 - 29 mmol/L 08/30/2022 5:21 AM [facility] Glucose 133(H) 70 - 115 mg/dL 08/30/2022 5:21 AM [facility] Albumin 2.4(L) 3.4 - 5.0 g/dL 08/30/2022 5:21 AM [facility] Calcium 9.2 8.4 - 10.2 mg/dL 08/30/2022 5:21 AM [facility] Phosphorus 3.5 2.9 - 5.1 mg/dL 08/30/2022 5:21 AM [facility] Anion Gap 14 8 - 18 08/30/2022 5:21 AM [facility] BUN/Creatinine Ratio 21 7 - 23 08/30/2022 5:21 AM [facility] Osmolality Calculated 311(H) 270 - 300 mOsm/kg 08/30/2022 5:21 AM [facility] eGFR by CKD-EPI 13(L) >=90 mL/min/1.7 3 m2 08/30/2022 5:21 AM [facility] Blood BLOOD SPECIMEN / Unknown Lab Venipuncture / Unknown 08/30/2022 4:20 AM CDT 08/30/2022 4:53 AM T Ashvin Barber MD LAB - CHEMISTRY ORDE [facility] Organization Address City/State/ZIP Co de Phone Number [facility] [address] [place] [address], [facility] [phone] * (ABNORMAL) CBC W/O DIFFERENTIAL (08/30/2022 4:20 AM CDT) WBC 9.1 3.5 - 10.5 10? 3 /uL 08/30/2022 5:00 AM [facility] RBC 2.51(L) 3.80 - 5.20 10? 6 /uL 08/30/2022 5:00 AM [facility] Hemoglobin 7.2(L) 12.0 - 15.6 g/dL 08/30/2022 5:00 AM [facility] Hematocrit 22.6(L) 35.0 - 45.0 % 08/30/2022 5:00 AM [facility] MCV 90.0 80.7 - 98.3 fL 08/30/2022 5:00 AM [facility] MCH 28.7 26.7 - 34.0 pg 08/30/2022 5:00 AM CDT [facility] MCHC 31.9 30.8 - 35.9 g/dL 08/30/2022 5:00 AM CDT [facility] RDW-SD 46.2 36.0 - 50.0 fL 08/30/2022 5:00 AM CDT [facility] RDW-CV 14.4 11.2 - 14.8 % 08/30/2022 5:00 AM T [facility] Platelet Count 200 150 - 400 10? 3 /uL 08/30/2022 5:00 AM T [facility] MPV 9.8 9.4 - 12.9 fL 08/30/2022 5:00 AM CDT [facility] nRBC Absolute 0.00 0 10? 3 /uL 08/30/2022 5:00 AM T [facility] nRBC Auto 0.0 0 /100 WBC 08/30/2022 5:00 AM T [facility] Blood BLOOD SPECIMEN / Unknown Lab Venipuncture / Unknown 08/30/2022 4:20 AM CDT 08/30/2022 4:53 AM CDT Héctor Silva MD LAB - HEMATOLOGY ORD ERABLES Performing Organization Address City/State/[facility] Co de Phone Number [address] [address], [facility] [phone] * TRANSFUSE RED BLOOD CELL LEUKOREDUCED UNIT(S) (08/29/2022 2:00 PM CDT) Primo Maurice MD NURSING - BLOOD PROD TRANSFUSION * TRANSFUSE RED BLOOD CELL LEUKOREDUCED UNIT(S), 1 Units (08/29/2022 2:00 PM CDT) Primo Maurice MD NURSING - BLOOD PROD TRANSFUSION * PREPARE (CROSSMATCH) RBC UNIT(S), 1 Units (08/29/2022 9:45 AM CDT) Unit Description AS1 LR PRBC [facility] Unit ABO A [facility] Unit Rh NEG [facility] Product Number R44 [facility] Unit Donor # [id number] [facility] Unit Status transfused [facility] Product Code F6754S71 [facility] Blood Type Barcode 0600 [facility] Expiration Date [facility] Blood Bank BLOOD SPECIMEN / Unknown 08/29/2022 7:00 AM CDT Primo Maurice MD LAB - BLOOD BANK ORD ERABLES Performing Organization Address City/[facility]/ZIP Co de Phone Number [facility] [address] [place] [address], [facility] [phone] * TYPE + SCREEN PANEL (08/29/2022 6:48 AM CDT) Pathologist [facility] Antibody Screen NEG 7:39 AM CDT [facility] ABO Rh A NEG 08/29/2022 7:39 AM CDT [facility] Blood Bank BLOOD SPECIMEN / Unknown Venipuncture / Unknown 08/29/2022 6:48 AM CDT 08/29/2022 7:00 AM CDT Primo Maurice MD LAB - BLOOD BANK ORD ERABLES Performing Organization Address City/[facility]/ZIP Co de Phone Number [facility] [address] [place] [address], [facility] [phone] * (ABNORMAL) RENAL FUNCTION PANEL (08/29/2022 2:04 AM CDT) BUN 56(H) 7 - 26 mg/dL 08/29/2022 2:58 AM CDT [facility] Creatinine 2.98(H) 0.56 - 0.96 mg/dL 08/29/2022 2:58 AM CDT [facility] Sodium 138 136 - 145 mmol/L 08/29/2022 2:58 AM CDT [facility] Potassium 3.8 3.5 - 4.5 mmol/L 08/29/2022 2:58 AM CDT [facility] Chloride 101 98 - 107 mmol/L 08/29/2022 2:58 AM CDT [facility] CO2 26 22 - 29 mmol/L 08/29/2022 2:58 AM [facility] Glucose 136(H) 70 - 115 mg/dL 08/29/2022 2:58 AM [facility] Albumin 2.6(L) 3.4 - 5.0 g/dL 08/29/2022 2:58 AM [facility] Calcium 9.1 8.4 - 10.2 mg/dL 08/29/2022 2:58 AM [facility] Phosphorus 3.0 2.9 - 5.1 mg/dL 08/29/2022 2:58 AM [facility] Anion Gap 15 8 - 18 08/29/2022 2:58 AM [facility] BUN/Creatinine Ratio 19 7 - 23 08/29/2022 2:58 AM [facility] Osmolality Calculated 304(H) 270 - 300 mOsm/kg 08/29/2022 2:58 AM [facility] eGFR by CKD-EPI 15(L) >=90 mL/min/1.7 3 m2 08/29/2022 2:58 AM [facility] Blood BLOOD SPECIMEN / Unknown Lab Venipuncture / Unknown 08/29/2022 2:04 AM CDT 08/29/2022 2:31 AM CDT Ashvin Barber MD LAB - CHEMISTRY PATRICIA CASIANO [address] [address], [facility] [phone] * MAGNESIUM BLOOD (08/29/2022 2:04 AM CDT) Magnesium 2.1 1.6 - 2.6 mg/dL 08/29/2022 2:58 AM T [facility] Blood BLOOD SPECIMEN / Unknown Lab Venipuncture / Unknown 08/29/2022 2:04 AM CDT 08/29/2022 2:31 AM CDT Héctor Silva MD LAB - CHEMISTRY PATRICIA CASIANO [address] [address] [phone] * (ABNORMAL) CBC W/O DIFFERENTIAL (08/29/2022 2:04 AM T) [facility] WBC 8.3 3.5 - 10.5 10? 3 /uL 08/29/2022 2:37 AM [facility] RBC 2.25(L) 3.80 - 5.20 10? 6 /uL 08/29/2022 2:37 AM [facility] Hemoglobin 6.5(L) 12.0 - 15.6 g/dL 08/29/2022 2:37 AM [facility] Hematocrit 20.0(L) 35.0 - 45.0 % 08/29/2022 2:37 AM [facility] MCV 88.9 80.7 - 98.3 fL 08/29/2022 2:37 AM [facility] MCH 28.9 26.7 - 34.0 pg 08/29/2022 2:37 AM [facility] MCHC 32.5 30.8 - 35.9 g/dL 08/29/2022 2:37 AM [facility] RDW-SD 44.9 36.0 - 50.0 fL 08/29/2022 2:37 AM [facility] RDW-CV 13.8 11.2 - 14.8 % 08/29/2022 2:37 AM [facility] Platelet Count 189 150 - 400 10? 3 /uL 08/29/2022 2:37 AM [facility] MPV 9.6 9.4 - 12.9 fL 08/29/2022 2:37 AM [facility] nRBC Absolute 0.02(H) 0 10? 3 /uL 08/29/2022 2:37 AM [facility] nRBC Auto 0.2(H) 0 /100 WBC 08/29/2022 2:37 AM [facility] Blood BLOOD SPECIMEN / Unknown Lab Venipuncture / Unknown 08/29/2022 2:04 AM CDT 08/29/2022 2:31 AM CDT Héctor C Edgell MD LAB - HEMATOLOGY ORD ERABLES [facility] [address] [place] [address], [facility] [phone] * (ABNORMAL) RENAL FUNCTION PANEL (08/28/2022 4:16 AM CDT) BUN 35(H) 7 - 26 mg/dL 08/28/2022 5:01 AM [facility] Creatinine 2.23(H) 0.56 - 0.96 mg/dL 08/28/2022 5:01 AM [facility] Sodium 139 136 - 145 mmol/L 08/28/2022 5:01 AM [facility] Potassium 3.7 3.5 - 4.5 mmol/L 08/28/2022 5:01 AM [facility] Chloride 103 98 - 107 mmol/L 08/28/2022 5:01 AM [facility] CO2 26 22 - 29 mmol/L 08/28/2022 5:01 AM [facility] Glucose 127(H) 70 - 115 mg/dL 08/28/2022 5:01 AM [facility] Albumin 2.7(L) 3.4 - 5.0 g/dL 08/28/2022 5:01 AM [facility] Calcium 9.0 8.4 - 10.2 mg/dL 08/28/2022 5:01 AM [facility] Phosphorus 2.6(L) 2.9 - 5.1 mg/dL 08/28/2022 5:01 AM [facility] Anion Gap 14 8 - 18 08/28/2022 5:01 AM [facility] BUN/Creatinine Ratio 16 7 - 23 08/28/2022 5:01 AM [facility] Osmolality Calculated 298 270 - 300 mOsm/kg 08/28/2022 5:01 AM [facility] eGFR by CKD-EPI 22(L) >=90 mL/min/1.7 3 m2 08/28/2022 5:01 AM [facility] Blood BLOOD SPECIMEN / Unknown Lab Venipuncture / Unknown 08/28/2022 4:16 AM CDT 08/28/2022 4:33 AM CDT Ashvin Barber MD LAB - CHEMISTRY PATRICIA CASIANO Performing Organization Address City/[facility]/ZIP Co de Phone Number [address] [address], [facility] [phone] * MAGNESIUM BLOOD (08/28/2022 4:16 AM CDT) Pathologist [facility] Magnesium 2.0 1.6 - 2.6 mg/dL 08/28/2022 5:01 AM T [facility] Blood BLOOD SPECIMEN / Unknown Lab Venipuncture / Unknown 08/28/2022 4:16 AM CDT 08/28/2022 4:33 AM CDT Héctor Silva MD LAB - CHEMISTRY PATRICIA CASIANO Performing Organization Address [facility]/ZIP Co de Phone Number [address] [address], [facility] [phone] * (ABNORMAL) CBC W/O DIFFERENTIAL (08/28/2022 4:16 AM CDT) Pathologist [facility] WBC 8.5 3.5 - 10.5 10? 3 /uL 08/28/2022 4:42 AM [facility] RBC 2.44(L) 3.80 - 5.20 10? 6 /uL 08/28/2022 4:42 AM [facility] Hemoglobin 7.1(L) 12.0 - 15.6 g/dL 08/28/2022 4:42 AM [facility] Hematocrit 21.9(L) 35.0 - 45.0 % 08/28/2022 4:42 AM [facility] MCV 89.8 80.7 - 98.3 fL 08/28/2022 4:42 AM [facility] MCH 29.1 26.7 - 34.0 pg 08/28/2022 4:42 AM [facility] MCHC 32.4 30.8 - 35.9 g/dL 08/28/2022 4:42 AM [facility] RDW-SD 45.7 36.0 - 50.0 fL 08/28/2022 4:42 AM [facility] RDW-CV 13.9 11.2 - 14.8 % 08/28/2022 4:42 AM [facility] Platelet Count 197 150 - 400 10? 3 /uL 08/28/2022 4:42 AM [facility] MPV 9.7 9.4 - 12.9 fL 08/28/2022 4:42 AM [facility] nRBC Absolute 0.04(H) 0 10? 3 /uL 08/28/2022 4:42 AM [facility] nRBC Auto 0.5(H) 0 /100 WBC 08/28/2022 4:42 AM [facility] Blood BLOOD SPECIMEN / Unknown Lab Venipuncture / Unknown 08/28/2022 4:16 AM CDT 08/28/2022 4:33 AM T Héctor Silva MD LAB - HEMATOLOGY ORD ERABLES [facility] [address] [place] [address], [facility] [phone] * (ABNORMAL) RENAL FUNCTION PANEL (08/27/2022 4:39 AM CDT) BUN 41(H) 7 - 26 mg/dL 08/27/2022 5:15 AM [facility] Creatinine 2.57(H) 0.56 - 0.96 mg/dL 08/27/2022 5:15 AM [facility] Sodium 139 136 - 145 mmol/L 08/27/2022 5:15 AM [facility] Potassium 3.4(L) 3.5 - 4.5 mmol/L 08/27/2022 5:15 AM [facility] Chloride 100 98 - 107 mmol/L 08/27/2022 5:15 AM [facility] CO2 29 22 - 29 mmol/L 08/27/2022 5:15 AM [facility] Glucose 137(H) 70 - 115 mg/dL 08/27/2022 5:15 AM [facility] Albumin 2.6(L) 3.4 - 5.0 g/dL 08/27/2022 5:15 AM [facility] Calcium 8.7 8.4 - 10.2 mg/dL 08/27/2022 5:15 AM [facility] Phosphorus 2.9 2.9 - 5.1 mg/dL 08/27/2022 5:15 AM [facility] Anion Gap 13 8 - 18 08/27/2022 5:15 AM [facility] BUN/Creatinine Ratio 16 7 - 23 08/27/2022 5:15 AM [facility] Osmolality Calculated 300 270 - 300 mOsm/kg 08/27/2022 5:15 AM [facility] eGFR by CKD-EPI 18(L) >=90 mL/min/1.7 3 m2 08/27/2022 5:15 AM [facility] Blood BLOOD SPECIMEN / Unknown Line Draw / Unknown 08/27/2022 4:39 AM CDT 08/27/2022 4:43 AM CDT Héctor Silva MD LAB - CHEMISTRY PATRICIA CASIANO [address] [address], [facility] [phone] * MAGNESIUM BLOOD (08/27/2022 4:39 AM CDT) Magnesium 2.0 1.6 - 2.6 mg/dL 08/27/2022 5:11 AM T [facility] Blood BLOOD SPECIMEN / Unknown Line Draw / Unknown 08/27/2022 4:39 AM CDT 08/27/2022 4:43 AM CDT Héctor Silva MD LAB - CHEMISTRY PATRICIA CASIANO [address] [address], [place] [phone] * (ABNORMAL) PT-INR [facility] (08/27/2022 4:39 AM CDT) PT 11.8(L) 12.1 - 14.8 Seconds 08/27/2022 5:09 AM [facility] INR 0.9 See Comment 08/27/2022 5:09 AM [facility] Comment:The suggested therap eutic range for standard coumadin (warfarin) therapy is an INR of 2.0-3.0. For high-risk patients (Mechanical Mitral Valve Prosthesis, etc.), the suggested prophylactic therapeutic range is an INR of 2.5-3.5. Blood BLOOD SPECIMEN / Unknown Line Draw / Unknown 08/27/2022 4:39 AM CDT 08/27/2022 4:43 AM CDT Héctor Silva MD LAB - COAGULATION OR DERABLES Performing Organization Address [facility]/State/[facility] Co de Phone Number [address] [address] [phone] * (ABNORMAL) CBC W/O DIFFERENTIAL (08/27/2022 4:39 AM CDT) WBC 8.4 3.5 - 10.5 10? 3 /uL 08/27/2022 4:52 AM [facility] RBC 2.49(L) 3.80 - 5.20 10? 6 /uL 08/27/2022 4:52 AM [facility] Hemoglobin 7.1(L) 12.0 - 15.6 g/dL 08/27/2022 4:52 AM [facility] Hematocrit 21.9(L) 35.0 - 45.0 % 08/27/2022 4:52 AM [facility] MCV 88.0 80.7 - 98.3 fL 08/27/2022 4:52 AM [facility] MCH 28.5 26.7 - 34.0 pg 08/27/2022 4:52 AM [facility] MCHC 32.4 30.8 - 35.9 g/dL 08/27/2022 4:52 AM [facility] RDW-SD 45.1 36.0 - 50.0 fL 08/27/2022 4:52 AM CDT [facility] RDW-CV 14.1 11.2 - 14.8 % 08/27/2022 4:52 AM [facility] Platelet Count 193 150 - 400 10? 3 /uL 08/27/2022 4:52 AM T [facility] MPV 9.5 9.4 - 12.9 fL 08/27/2022 4:52 AM T [facility] nRBC Absolute 0.03(H) 0 10? 3 /uL 08/27/2022 4:52 AM T [facility] nRBC Auto 0.4(H) 0 /100 WBC 08/27/2022 4:52 AM T [facility] Blood BLOOD SPECIMEN / Unknown Line Draw / Unknown 08/27/2022 4:39 AM CDT 08/27/2022 4:43 AM CDT Héctor Silva MD LAB - HEMATOLOGY ORD ERABLES [address] [address], [place] [phone] * (ABNORMAL) GLUCOSE - POINT OF CARE (08/26/2022 11:48 PM CDT) Glucose WB/POC 148(H) 70 - 115 mg/dL 08/27/2022 4:21 AM T [facility] Specimen Type Cap Fingerstick 2021 4:21 AM CDT [facility] Blood BLOOD SPECIMEN / Unknown 08/26/2022 11:48 PM CDT 08/27/2022 4:21 AM CDT Ashvin Barber MD LAB - POINT OF CARE ORDERABLES [address] [address], [place] [phone] * (ABNORMAL) GLUCOSE - POINT OF CARE (08/26/2022 6:52 PM CDT) Glucose WB/POC 150(H) 70 - 115 mg/dL 08/26/2022 6:58 PM [facility] Specimen Type Cap Fingerstick 2021 6:58 PM [facility] Blood BLOOD SPECIMEN / Unknown 08/26/2022 6:52 PM CDT 08/26/2022 6:58 PM CDT Ashvin Barber MD LAB - POINT OF CARE ORDERABLES [facility] [address] [place] [address], [facility] [phone] * (ABNORMAL) RENAL FUNCTION PANEL (08/26/2022 3:33 PM CDT) BUN 29(H) 7 - 26 mg/dL 08/26/2022 4:13 PM [facility] Creatinine 1.91(H) 0.56 - 0.96 mg/dL 08/26/2022 4:13 PM [facility] Sodium 142 136 - 145 mmol/L 08/26/2022 4:13 PM [facility] Potassium 2.6(L) 3.5 - 4.5 mmol/L 08/26/2022 4:13 PM [facility] Chloride 107 98 - 107 mmol/L 08/26/2022 4:13 PM [facility] CO2 24 22 - 29 mmol/L 08/26/2022 4:13 PM [facility] Glucose 124(H) 70 - 115 mg/dL 08/26/2022 4:13 PM [facility] Albumin 2.0(L) 3.4 - 5.0 g/dL 08/26/2022 4:13 PM [facility] Calcium 6.7(L) 8.4 - 10.2 mg/dL 08/26/2022 4:13 PM [facility] Phosphorus 2.3(L) 2.9 - 5.1 mg/dL 08/26/2022 4:13 PM [facility] Anion Gap 14 8 - 18 08/26/2022 4:13 PM [facility] BUN/Creatinine Ratio 15 7 - 23 08/26/2022 4:13 PM [facility] Osmolality Calculated 301(H) 270 - 300 mOsm/kg 08/26/2022 4:13 PM [facility] eGFR by CKD-EPI 26(L) >=90 mL/min/1.7 3 m2 08/26/2022 4:13 PM [facility] Blood BLOOD SPECIMEN / Unknown Venipuncture / Unknown 08/26/2022 3:33 PM CDT 08/26/2022 3:42 PM CDT Héctor Silva MD LAB - CHEMISTRY PATRICIA CASIANO [facility] Organization Address City/State/ZIP Co de Phone Number [facility] [address] [place] [address], [facility] [phone] * (ABNORMAL) RENAL FUNCTION PANEL (08/26/2022 3:30 AM CDT) BUN 27(H) 7 - 26 mg/dL 08/26/2022 4:05 AM [facility] Creatinine 1.91(H) 0.56 - 0.96 mg/dL 08/26/2022 4:05 AM [facility] Sodium 139 136 - 145 mmol/L 08/26/2022 4:05 AM [facility] Potassium 3.2(L) 3.5 - 4.5 mmol/L 08/26/2022 4:05 AM [facility] Chloride 99 98 - 107 mmol/L 08/26/2022 4:05 AM [facility] CO2 31(H) 22 - 29 mmol/L 08/26/2022 4:05 AM [facility] Glucose 144(H) 70 - 115 mg/dL 08/26/2022 4:05 AM [facility] Albumin 2.6(L) 3.4 - 5.0 g/dL 08/26/2022 4:05 AM [facility] Calcium 8.2(L) 8.4 - 10.2 mg/dL 08/26/2022 4:05 AM [facility] Phosphorus 2.3(L) 2.9 - 5.1 mg/dL 08/26/2022 4:05 AM T [facility] Anion Gap 12 8 - 18 08/26/2022 4:05 AM [facility] BUN/Creatinine Ratio 14 7 - 23 08/26/2022 4:05 AM [facility] Osmolality Calculated 296 270 - 300 mOsm/kg 08/26/2022 4:05 AM [facility] eGFR by CKD-EPI 26(L) >=90 mL/min/1.7 3 m2 08/26/2022 4:05 AM T [facility] Blood BLOOD SPECIMEN / Unknown Venipuncture / Unknown 08/26/2022 3:30 AM CDT 08/26/2022 3:36 AM CDT Héctor Silva MD LAB - CHEMISTRY PATRICIA CASIANO Performing Organization Address City/[facility]/ZIP Co de Phone Number [facility] [address] [place] [address], [facility] [phone] * MAGNESIUM BLOOD (08/26/2022 3:30 AM CDT) Magnesium 1.8 1.6 - 2.6 mg/dL 08/26/2022 4:05 AM T [facility] Blood BLOOD SPECIMEN / Unknown Venipuncture / Unknown 08/26/2022 3:30 AM CDT 08/26/2022 3:36 AM CDT Héctor Silva MD LAB - CHEMISTRY PATRICIA CASIANO [facility] [address] [place] [address], [place] [phone] * PT-INR [facility] (08/26/2022 3:30 AM CDT) PT 12.9 12.1 - 14.8 Seconds 08/26/2022 4:01 AM T [facility] INR 1.0 See Comment 08/26/2022 4:01 AM T [facility] Comment:The suggested therap eutic range for standard coumadin (warfarin) therapy is an INR of 2.0-3.0. For high-risk patients (Mechanical Mitral Valve Prosthesis, etc.), the suggested prophylactic therapeutic range is an INR of 2.5-3.5. Blood BLOOD SPECIMEN / Unknown Venipuncture / Unknown 08/26/2022 3:30 AM CDT 08/26/2022 3:36 AM CDT Héctor Silva MD LAB - COAGULATION OR DERABLES Performing Organization Address [facility] Co de Phone Number [facility] [address] [place] [address], [facility] [phone] * (ABNORMAL) CBC W/O DIFFERENTIAL (08/26/2022 3:30 AM CDT) WBC 8.0 3.5 - 10.5 10? 3 /uL 08/26/2022 3:40 AM [facility] RBC 2.57(L) 3.80 - 5.20 10? 6 /uL 08/26/2022 3:40 AM [facility] Hemoglobin 7.3(L) 12.0 - 15.6 g/dL 08/26/2022 3:40 AM [facility] Hematocrit 21.7(L) 35.0 - 45.0 % 08/26/2022 3:40 AM [facility] MCV 84.4 80.7 - 98.3 fL 08/26/2022 3:40 AM [facility] MCH 28.4 26.7 - 34.0 pg 08/26/2022 3:40 AM [facility] MCHC 33.6 30.8 - 35.9 g/dL 08/26/2022 3:40 AM [facility] Platelet Count 193 150 - 400 10? 3 /uL 08/26/2022 3:40 AM [facility] RDW-SD 43.9 36.0 - 50.0 fL 08/26/2022 3:40 AM [facility] RDW-CV 14.2 11.2 - 14.8 % 08/26/2022 3:40 AM [facility] MPV 9.5 9.4 - 12.9 fL 08/26/2022 3:40 AM CDT [facility] nRBC Absolute 0.00 0 10? 3 /uL 08/26/2022 3:40 AM CDT [facility] nRBC Auto 0.0 0 /100 WBC 08/26/2022 3:40 AM CDT [facility] Blood BLOOD SPECIMEN / Unknown Venipuncture / Unknown 08/26/2022 3:30 AM CDT 08/26/2022 3:36 AM CDT Héctor Silva MD LAB - HEMATOLOGY ORD ERABLES [facility] [address] [place] [phone], [place] [phone] * (ABNORMAL) GLUCOSE - POINT OF CARE (08/26/2022 12:10 AM CDT) Glucose WB/POC 129(H) 70 - 115 mg/dL 08/26/2022 12:15 AM CDT [facility] Specimen Type Cap Fingerstick 2021 12:15 AM CDT [facility] Blood BLOOD SPECIMEN / Unknown 08/26/2022 12:10 AM CDT 08/26/2022 12:15 AM CDT Ashvin Barber MD LAB - POINT OF CARE ORDERABLES Performing Organization Address City/[facility]/ZIP Co de Phone Number [facility] [address] [place] [id number], [place] [phone] * (ABNORMAL) GLUCOSE - POINT OF CARE (08/25/2022 6:17 PM CDT) Glucose WB/POC 144(H) 70 - 115 mg/dL 08/25/2022 6:22 PM CDT [facility] Specimen Type Venous 08/25/2022 6:22 PM CDT [facility] Blood BLOOD SPECIMEN / Unknown 08/25/2022 6:17 PM CDT 08/25/2022 6:22 PM CDT Ashvin Barber MD LAB - POINT OF CARE ORDERABLES [facility] [address] [place] [address], [facility] [phone] * (ABNORMAL) BASIC METABOLIC PANEL (CALCIUM TOTAL) (08/25/2022 4:12 PM CDT) BUN 17 7 - 26 mg/dL 08/25/2022 5:00 PM [facility] Creatinine 1.42(H) 0.56 - 0.96 mg/dL 08/25/2022 5:00 PM [facility] Sodium 140 136 - 145 mmol/L 08/25/2022 5:00 PM [facility] Potassium 3.7 3.5 - 4.5 mmol/L 08/25/2022 5:00 PM [facility] Chloride 99 98 - 107 mmol/L 08/25/2022 5:00 PM [facility] CO2 28 22 - 29 mmol/L 08/25/2022 5:00 PM [facility] Glucose 122(H) 70 - 115 mg/dL 08/25/2022 5:00 PM [facility] Calcium 8.0(L) 8.4 - 10.2 mg/dL 08/25/2022 5:00 PM [facility] Anion Gap 17 8 - 18 08/25/2022 5:00 PM [facility] BUN/Creatinine Ratio 12 7 - 23 08/25/2022 5:00 PM [facility] Osmolality Calculated 293 270 - 300 mOsm/kg 08/25/2022 5:00 PM [facility] eGFR by CKD-EPI 37(L) >=90 mL/min/1.7 3 m2 08/25/2022 5:00 PM [facility] Blood BLOOD SPECIMEN / Unknown Venipuncture / Unknown 08/25/2022 4:12 PM CDT 08/25/2022 4:32 PM CDT Ashvin Barber MD LAB - CHEMISTRY ORDE STEPHENIE [facility] [address] [place] [address] [phone] * (ABNORMAL) RENAL FUNCTION PANEL (08/25/2022 4:12 PM CDT) BUN 17 7 - 26 mg/dL 08/25/2022 5:04 PM [facility] Creatinine 1.42(H) 0.56 - 0.96 mg/dL 08/25/2022 5:04 PM [facility] Sodium 140 136 - 145 mmol/L 08/25/2022 5:04 PM [facility] Potassium 3.7 3.5 - 4.5 mmol/L 08/25/2022 5:04 PM [facility] Chloride 99 98 - 107 mmol/L 08/25/2022 5:04 PM [facility] CO2 28 22 - 29 mmol/L 08/25/2022 5:04 PM [facility] Glucose 122(H) 70 - 115 mg/dL 08/25/2022 5:04 PM [facility] Albumin 2.6(L) 3.4 - 5.0 g/dL 08/25/2022 5:04 PM [facility] Calcium 8.0(L) 8.4 - 10.2 mg/dL 08/25/2022 5:04 PM [facility] Phosphorus 2.5(L) 2.9 - 5.1 mg/dL 08/25/2022 5:04 PM [facility] Anion Gap 17 8 - 18 08/25/2022 5:04 PM [facility] BUN/Creatinine Ratio 12 7 - 23 08/25/2022 5:04 PM [facility] Osmolality Calculated 293 270 - 300 mOsm/kg 08/25/2022 5:04 PM [facility] eGFR by CKD-EPI 37(L) >=90 mL/min/1.7 3 m2 08/25/2022 5:04 PM [facility] Blood BLOOD SPECIMEN / Unknown Venipuncture / Unknown 08/25/2022 4:12 PM CDT 08/25/2022 4:32 PM T Héctor Silva MD LAB - CHEMISTRY PATRICIA CASIANO Performing Organization Address [facility]/ZIP Co de Phone Number [address] [address], [place] [phone] * (ABNORMAL) POTASSIUM WHOLE BLD (08/25/2022 1:20 PM CDT) [facility] Potassium Whole Blood 3.4(L) 3.5 - 5.5 mmol/L 08/25/2022 1:31 PM CDT [facility] Blood WHOLE BLOOD SPECIMEN / Unknown Venipuncture / Unknown 08/25/2022 1:20 PM CDT 08/25/2022 1:23 PM CDT Jayna Masters MD LAB - CHEMISTRY PATRICIA CASIANO Performing Organization Address [facility]/ZIP Co de Phone Number [address] [address], [place] [phone] * MRSA DNA PCR (08/25/2022 1:18 PM CDT) [facility] MRSA DNA by PCR Not detected Not detected 08/25/2022 6:10 PM CDT [facility] MICROBIOLOGY Microbiology SPECIMEN FROM NASAL FOSSAE / Unknown Collection / Unknown 08/25/2022 1:18 PM CDT 08/25/2022 1:23 PM CDT Narrative [facility] MICROBIOLOG[facility] - 08/25/2022 6:10 PM CDT Methicillin-resistant Staphylococcus aureus (MRSA) DNA is not detected (presumed not colonized with MRSA). Héctor Silva MD LAB - MICROBIOLOGY O RDERABLES Performing Organization Address City/[facility]/ZIP Co de Phone Number [facility] MICROBIOLOGY [address] [place] [address], [place] [phone] * IR CENTRAL LINE INSERT TUNNEL (08/25/2022 12:32 PM CDT) Anatomical Region Laterality Modality Chest, Upper Extremity X-Ray Ang iography 08/25/2022 12:5 5 PM CDT Impressions 08/25/2022 12:58 PM CDT IMPRESSION: Successful Right internal jugular tunneled central venous catheter placement. > Interpreting Provider: Jes Ruiz MD on 08/25/2022 12:58 PM Narrative 08/25/2022 12:58 PM CDT PROCEDURE: ??IR CENTRAL LINE INSERT TUNNEL, DATE/TIME OF EXAM: ??08/25/2022 12:32 PM, LOCATION ??[facility] INDICATION: N18.30: Stage 3 chronic kidney disease, unspecified whether stage 3a or 3b CKD ([facility]/HCC) N17.9: Acute renal failure, unspecified acute renal failure type ([facility]) ADDITIONAL CLINICAL INFORMATION: Ordering Provider Reason For [...] a separate anaesthesia provider. ?? Procedure Note Jes Ruiz MD - 08/25/2022 PROCEDURE: IR CENTRAL LINE INSERT TUNNEL, DATE/TIME OF EXAM:08/25/2022 12:32 PM, LOCATION [facility] INDICATION: N18.30: Stage 3 chronic kidney disease, unspecified whether stage 3a or3b CKD (CMS/HCC) N17.9: Acute renal failure, unspecified acute renal failure type(CMS/HCC) ADDITIONAL CLINICAL INFORMATION: Ordering Provider Reason For [...] central venous catheter placement. > Interpreting Provider: Jes Ruiz MD on 08/25/2022 12:58 PM Héctor Silva MD IR ORDERABLES * (ABNORMAL) RENAL FUNCTION PANEL (08/25/2022 3:38 AM CDT) BUN 23 7 - 26 mg/dL 08/25/2022 4:09 AM [facility] Creatinine 1.83(H) 0.56 - 0.96 mg/dL 08/25/2022 4:09 AM [facility] Sodium 141 136 - 145 mmol/L 08/25/2022 4:09 AM [facility] Potassium 2.9(L) 3.5 - 4.5 mmol/L 08/25/2022 4:09 AM [facility] Chloride 99 98 - 107 mmol/L 08/25/2022 4:09 AM [facility] CO2 29 22 - 29 mmol/L 08/25/2022 4:09 AM [facility] Glucose 102 70 - 115 mg/dL 08/25/2022 4:09 AM [facility] Albumin 2.7(L) 3.4 - 5.0 g/dL 08/25/2022 4:09 AM [facility] Calcium 8.5 8.4 - 10.2 mg/dL 08/25/2022 4:09 AM [facility] Phosphorus 1.6(L) 2.9 - 5.1 mg/dL 08/25/2022 4:09 AM T [facility] Anion Gap 16 8 - 18 08/25/2022 4:09 AM [facility] BUN/Creatinine Ratio 13 7 - 23 08/25/2022 4:09 AM T [facility] Osmolality Calculated 296 270 - 300 mOsm/kg 08/25/2022 4:09 AM [facility] eGFR by CKD-EPI 28(L) >=90 mL/min/1.7 3 m2 08/25/2022 4:09 AM T [facility] Blood BLOOD SPECIMEN / Unknown Venipuncture / Unknown 08/25/2022 3:38 AM CDT 08/25/2022 3:41 AM CDT Héctor Silva MD LAB - CHEMISTRY PATRICIA CASIANO Performing Organization Address City/[facility]/ZIP Co de Phone Number [address] [address], [facility] [phone] * MAGNESIUM BLOOD (08/25/2022 3:38 AM CDT) Magnesium 1.8 1.6 - 2.6 mg/dL 08/25/2022 4:07 AM T [facility] Blood BLOOD SPECIMEN / Unknown Venipuncture / Unknown 08/25/2022 3:38 AM CDT 08/25/2022 3:41 AM CDT Héctor Silva MD LAB - CHEMISTRY PATRICIA CASIANO [address] [address], [place] [phone] * PT-INR [facility] (08/25/2022 3:38 AM CDT) PT 12.3 12.1 - 14.8 Seconds 08/25/2022 4:04 AM T [facility] INR 0.9 See Comment 08/25/2022 4:04 AM T [facility] Comment:The suggested therap eutic range for standard coumadin (warfarin) therapy is an INR of 2.0-3.0. For high-risk patients (Mechanical Mitral Valve Prosthesis, etc.), the suggested prophylactic therapeutic range is an INR of 2.5-3.5. Blood BLOOD SPECIMEN / Unknown Venipuncture / Unknown 08/25/2022 3:38 AM CDT 08/25/2022 3:41 AM CDT Héctor Silva MD LAB - COAGULATION OR DERABLES [facility] [address] [place] [address], [facility] [phone] * (ABNORMAL) CBC W/O DIFFERENTIAL (08/25/2022 3:38 AM CDT) WBC 8.9 3.5 - 10.5 10? 3 /uL 08/25/2022 3:45 AM [facility] RBC 2.78(L) 3.80 - 5.20 10? 6 /uL 08/25/2022 3:45 AM [facility] Hemoglobin 7.9(L) 12.0 - 15.6 g/dL 08/25/2022 3:45 AM [facility] Hematocrit 22.7(L) 35.0 - 45.0 % 08/25/2022 3:45 AM [facility] MCV 81.7 80.7 - 98.3 fL 08/25/2022 3:45 AM [facility] MCH 28.4 26.7 - 34.0 pg 08/25/2022 3:45 AM [facility] MCHC 34.8 30.8 - 35.9 g/dL 08/25/2022 3:45 AM [facility] Platelet Count 208 150 - 400 10? 3 /uL 08/25/2022 3:45 AM [facility] RDW-SD 41.0 36.0 - 50.0 fL 08/25/2022 3:45 AM [facility] RDW-CV 13.9 11.2 - 14.8 % 08/25/2022 3:45 AM [facility] MPV 9.4 9.4 - 12.9 fL 08/25/2022 3:45 AM CDT [facility] nRBC Absolute 0.00 0 10? 3 /uL 08/25/2022 3:45 AM CDT [facility] nRBC Auto 0.0 0 /100 WBC 08/25/2022 3:45 AM CDT [facility] Blood BLOOD SPECIMEN / Unknown Venipuncture / Unknown 08/25/2022 3:38 AM CDT 08/25/2022 3:41 AM CDT Héctor Silva MD LAB - HEMATOLOGY ORD ERABLES [address] [address], [place] [phone] * (ABNORMAL) GLUCOSE - POINT OF CARE (08/25/2022 1:28 AM CDT) Pathologist [facility] Glucose WB/POC 123(H) 70 - 115 mg/dL 08/25/2022 1:32 AM CDT [facility] Specimen Type Cap Fingerstick 2021 1:32 AM CDT [facility] Blood BLOOD SPECIMEN / Unknown 08/25/2022 1:28 AM CDT 08/25/2022 1:32 AM CDT Ashvin Barber MD LAB - POINT OF CARE ORDERABLES [address] [address], [place] [phone] * XR CHEST 1VW PORTABLE (08/24/2022 6:26 PM CDT) Anatomical Region Laterality Modality Chest Radiographic Marychuy ging 08/25/2022 8:43 AM CDT Narrative 08/25/2022 1:50 PM CDT PROCEDURE: ??XR CHEST 1VW PORTABLE, DATE/TIME OF EXAM: ??08/24/2022 6:26 PM, LOCATION ??[facility] INDICATION: J20.9: Acute bronchitis, unspecified organism ADDITIONAL CLINICAL INFORMATION: Ordering Provider Reason For Exam: ??SOB COMPARISON: Chest x-ray 08/24/2022 FINDINGS/IMPRESSION: Enteric tube courses below the diaphragm, tip is not seen. Right IJ central venous catheter terminates in the superior vena cava Surgical clips are seen in the right upper quadrant abdomen.. Unchanged bilateral, right greater than left small volume layering pleural effusions with mildly increased associated atelectasis and airspace disease in the left lung and unchanged in the right. Redemonstrated central perihilar opacities, likely represent a component of pulmonary venous congestion. No discernible pneumothorax. ??The cardiomediastinal silhouette is obscured. Report dictated by Heath Wu MD, MD (transporter radiology). INarciso MD have personally reviewed and interpreted this examination/study. > Interpreting Provider: Narciso Oseguera MD on 08/25/2022 1:50 PM Procedure Note Narciso Oseguera MD - 08/25/2022 PROCEDURE: XR CHEST 1VW PORTABLE, DATE/TIME OF EXAM: 08/24/2022 6:26PM, LOCATION [facility] INDICATION: J20.9: Acute bronchitis, unspecified organism ADDITIONAL CLINICAL INFORMATION: Ordering Provider Reason For Exam: SOB COMPARISON: Chest x-ray 08/24/2022 FINDINGS/IMPRESSION: Enteric tube courses below the diaphragm, tip is not seen. Right IJ central venous catheter terminates in the superior vena cava Surgical clips are seen in the right upper quadrant abdomen.. Unchanged bilateral, right greater than left small volume layeringpleural effusions with mildly increased associated atelectasis and airspacedisease in the left lung and unchanged in the right. Redemonstrated central perihilar opacities, likely represent a component of pulmonary venous congestion. No discernible pneumothorax. The cardiomediastinalsilhouette is obscured. Report dictated by Heath Wu MD, MD (transporter radiology). Narciso Hester MD have personally reviewed and interpreted this examination/study. > Interpreting Provider: Narciso Oseguera MD on 08/25/2022 1:50 PM Ashvin Barber MD DIAGNOSTIC IMAGING O RDERABLES * (ABNORMAL) RENAL FUNCTION PANEL (08/24/2022 4:36 PM CDT) BUN 50(H) 7 - 26 mg/dL 08/24/2022 5:20 PM [facility] Creatinine 3.08(H) 0.56 - 0.96 mg/dL 08/24/2022 5:20 PM [facility] Sodium 136 136 - 145 mmol/L 08/24/2022 5:20 PM [facility] Potassium 3.2(L) 3.5 - 4.5 mmol/L 08/24/2022 5:20 PM [facility] Chloride 99 98 - 107 mmol/L 08/24/2022 5:20 PM [facility] CO2 23 22 - 29 mmol/L 08/24/2022 5:20 PM [facility] Glucose 161(H) 70 - 115 mg/dL 08/24/2022 5:20 PM [facility] Albumin 2.6(L) 3.4 - 5.0 g/dL 08/24/2022 5:20 PM [facility] Calcium 8.6 8.4 - 10.2 mg/dL 08/24/2022 5:20 PM [facility] Phosphorus 4.5 2.9 - 5.1 mg/dL 08/24/2022 5:20 PM [facility] Anion Gap 17 8 - 18 08/24/2022 5:20 PM [facility] BUN/Creatinine Ratio 16 7 - 23 08/24/2022 5:20 PM [facility] Osmolality Calculated 299 270 - 300 mOsm/kg 08/24/2022 5:20 PM [facility] eGFR by CKD-EPI 15(L) >=90 mL/min/1.7 3 m2 08/24/2022 5:20 PM [facility] Blood BLOOD SPECIMEN / Unknown Venipuncture / Unknown 08/24/2022 4:36 PM CDT 08/24/2022 4:49 PM CDT Héctor Silva MD LAB - CHEMISTRY PATRICIA CASIANO [facility] [address] [place] [address], [facility] [phone] * (ABNORMAL) GLUCOSE - POINT OF CARE (08/24/2022 12:16 PM CDT) Glucose WB/POC 136(H) 70 - 115 mg/dL 08/24/2022 12:21 PM CDT [facility] Specimen Type Cap Fingerstick 2021 12:21 PM CDT [facility] Blood BLOOD SPECIMEN / Unknown 08/24/2022 12:16 PM CDT 08/24/2022 12:21 PM CDT Ashvin Barber MD LAB - POINT OF CARE ORDERABLES [facility] [address] [place] [address], [facility] [phone] * XR CHEST 1VW PORTABLE (08/24/2022 5:01 AM CDT) Anatomical Region Laterality Modality Chest Radiographic Marychuy ging 08/24/2022 1:46 PM CDT Narrative 08/24/2022 1:54 PM CDT PROCEDURE: ??XR CHEST 1VW PORTABLE, DATE/TIME OF EXAM: ??08/24/2022 5:01 AM, LOCATION ??[facility] INDICATION: N17.9: Acute renal failure, unspecified acute renal failure type (CMS/HCC) COMPARISON: 08/23/2022 FINDINGS/IMPRESSION: *Right internal jugular approach central venous catheter tip superimposing the superior vena cava. *Enteric tube traverses below the level of the diaphragm, tip not visualized. *Surgical clips in the right upper quadrant of the abdomen. Bilateral, right greater than left, small volume of layering pleural effusions with subjacent atelectasis, slightly decreased compared to prior. Central perihilar opacities likely represent pulmonary venous congestion. There is no large pneumothorax. The cardiomediastinal silhouette is partially obscured. Degenerative changes at the bilateral shoulder joints are noted. Contrast opacification within the stomach is noted. > Dictated by Ron Marvin MD (transporter radiology) I, Narciso Oseguera MD have personally reviewed and interpreted this examination/study. > Interpreting Provider: Narciso Oseguera MD on 08/24/2022 1:54 PM Procedure Note Narciso Oseguera MD - 08/24/2022 PROCEDURE: XR CHEST 1VW PORTABLE, DATE/TIME OF EXAM: 08/24/2022 5:01AM, LOCATION [facility] INDICATION: N17.9: Acute renal failure, unspecified acute renal failure type(CMS/HCC) COMPARISON: 08/23/2022 FINDINGS/IMPRESSION: *Right internal jugular approach central venous catheter tipsuperimposing the superior vena cava. *Enteric tube traverses below the level of the diaphragm, tip not visualized. *Surgical clips in the right upper quadrant of the abdomen. Bilateral, right greater than left, small volume of layering pleural effusions with subjacent atelectasis, slightly decreased compared toprior. Central perihilar opacities likely represent pulmonary venouscongestion. There is no large pneumothorax. The cardiomediastinal silhouette is partially obscured. Degenerative changes at the bilateral shoulderjoints are noted. Contrast opacification within the stomach is noted. > Dictated by Ron Marvin MD (transporter radiology) I, Narciso Oseguera MD have personally reviewed and interpreted this examination/study. > Interpreting Provider: Narciso Oseguera MD on 08/24/2022 1:54 PM Ashvin Barber MD DIAGNOSTIC IMAGING O RDERABLES * (ABNORMAL) RENAL FUNCTION PANEL (08/24/2022 2:31 AM CDT) BUN 41(H) 7 - 26 mg/dL 08/24/2022 3:05 AM [facility] Creatinine 2.72(H) 0.56 - 0.96 mg/dL 08/24/2022 3:05 AM [facility] Sodium 135(L) 136 - 145 mmol/L 08/24/2022 3:05 AM [facility] Potassium 3.4(L) 3.5 - 4.5 mmol/L 08/24/2022 3:05 AM [facility] Chloride 97(L) 98 - 107 mmol/L 08/24/2022 3:05 AM [facility] CO2 21(L) 22 - 29 mmol/L 08/24/2022 3:05 AM [facility] Glucose 119(H) 70 - 115 mg/dL 08/24/2022 3:05 AM [facility] Albumin 2.8(L) 3.4 - 5.0 g/dL 08/24/2022 3:05 AM [facility] Calcium 8.6 8.4 - 10.2 mg/dL 08/24/2022 3:05 AM [facility] Phosphorus 4.7 2.9 - 5.1 mg/dL 08/24/2022 3:05 AM [facility] Anion Gap 20(H) 8 - 18 08/24/2022 3:05 AM [facility] BUN/Creatinine Ratio 15 7 - 23 08/24/2022 3:05 AM [facility] Osmolality Calculated 291 270 - 300 mOsm/kg 08/24/2022 3:05 AM [facility] eGFR by CKD-EPI 17(L) >=90 mL/min/1.7 3 m2 08/24/2022 3:05 AM [facility] Blood BLOOD SPECIMEN / Unknown Venipuncture / Unknown 08/24/2022 2:31 AM CDT 08/24/2022 2:40 AM CDT Héctor Silva MD LAB - CHEMISTRY PATRICIA CASIANO [address] [address], [facility] [phone] * MAGNESIUM BLOOD (08/24/2022 2:31 AM CDT) Magnesium 2.0 1.6 - 2.6 mg/dL 08/24/2022 3:05 AM T [facility] Blood BLOOD SPECIMEN / Unknown Venipuncture / Unknown 08/24/2022 2:31 AM CDT 08/24/2022 2:40 AM CDT Héctor Silva MD LAB - CHEMISTRY PATRICIA CASIANO [address] [place] [address], [facility] [phone] * PT-INR [facility] (08/24/2022 2:31 AM CDT) [facility] PT 12.3 12.1 - 14.8 Seconds 08/24/2022 3:01 AM CDT [facility] INR 0.9 See Comment 08/24/2022 3:01 AM T [facility] Comment:The suggested therap eutic range for standard coumadin (warfarin) therapy is an INR of 2.0-3.0. For high-risk patients (Mechanical Mitral Valve Prosthesis, etc.), the suggested prophylactic therapeutic range is an INR of 2.5-3.5. Blood BLOOD SPECIMEN / Unknown Venipuncture / Unknown 08/24/2022 2:31 AM CDT 08/24/2022 2:40 AM CDT Héctor Silva MD LAB - COAGULATION OR DERABLES Performing Organization Address City/State/[facility] Co de Phone Number [facility] [address] [place] [address], [facility] [phone] * (ABNORMAL) CBC W/O DIFFERENTIAL (08/24/2022 2:31 AM CDT) [facility] WBC 9.1 3.5 - 10.5 10? 3 /uL 08/24/2022 2:45 AM [facility] RBC 2.59(L) 3.80 - 5.20 10? 6 /uL 08/24/2022 2:45 AM [facility] Hemoglobin 7.2(L) 12.0 - 15.6 g/dL 08/24/2022 2:45 AM [facility] Hematocrit 21.5(L) 35.0 - 45.0 % 08/24/2022 2:45 AM [facility] MCV 83.0 80.7 - 98.3 fL 08/24/2022 2:45 AM T [facility] MCH 27.8 26.7 - 34.0 pg 08/24/2022 2:45 AM T [facility] MCHC 33.5 30.8 - 35.9 g/dL 08/24/2022 2:45 AM CDT [facility] Platelet Count 192 150 - 400 10? 3 /uL 08/24/2022 2:45 AM CDT [facility] RDW-SD 41.2 36.0 - 50.0 fL 08/24/2022 2:45 AM CDT [facility] RDW-CV 13.7 11.2 - 14.8 % 08/24/2022 2:45 AM CDT [facility] MPV 9.6 9.4 - 12.9 fL 08/24/2022 2:45 AM CDT [facility] nRBC Absolute 0.00 0 10? 3 /uL 08/24/2022 2:45 AM CDT [facility] nRBC Auto 0.0 0 /100 WBC 08/24/2022 2:45 AM CDT [facility] Blood BLOOD SPECIMEN / Unknown Venipuncture / Unknown 08/24/2022 2:31 AM CDT 08/24/2022 2:40 AM CDT Héctor Silva MD LAB - HEMATOLOGY ORD ERABLES [facility] [address] [place] [address], [facility] [phone] * HEPATITIS B SURFACE ANTIBODY QUANT (08/23/2022 8:22 PM CDT) [facility] Hepatitis B Virus Surface Antibody 3.26 IU/L 08/25/2022 1:45 PM CDT [facility] ([facility]) Comment: The anti-HBs is less than 10 [...] Cellular and Tissue-Based Products (HCT/P). Performed By: [facility] [address] [place] [address] Airplane Pilot: Rene Rodas MD, PhD Blood BLOOD SPECIMEN / Unknown Line Draw / Unknown 08/23/2022 8:22 PM CDT 08/23/2022 9:39 PM CDT Josh Harrell MD LAB - SEROLOGY ORDER JULISSA Performing Organization Address City/[facility]/ZIP Co de Phone Number [facility] ([facility]) [address] [place], [place] [address] * HEPATITIS B SURFACE ANTIGEN W RFLX CONFIRMATION (08/23/2022 8:22 PM CDT) Hepatitis B Virus Surface Antigen Non-reacti ve Non-reacti ve 08/23/2022 10:50 PM CDT [facility] Blood BLOOD SPECIMEN / Unknown Line Draw / Unknown 08/23/2022 8:22 PM CDT 08/23/2022 9:39 PM CDT Josh Harrell MD LAB - CHEMISTRY ORDE RABLES Performing Organization Address City/[facility]/ZIP Co de Phone Number [address] [address], [facility] [phone] * XR CHEST 1VW PORTABLE (08/23/2022 5:11 PM CDT) Anatomical Region Laterality Modality Chest Radiographic Marychuy ging 08/24/2022 8:18 AM CDT Narrative 08/24/2022 8:46 AM CDT PROCEDURE: ??XR CHEST 1VW PORTABLE, DATE/TIME OF EXAM: ??08/23/2022 5:11 PM, LOCATION ??[facility] INDICATION: J20.9: Acute bronchitis, unspecified organism ADDITIONAL CLINICAL INFORMATION: Ordering Provider Reason For Exam: ??Trialysis cath placement COMPARISON: Chest x-ray 08/23/2022 FINDINGS/IMPRESSION: Right internal jugular approach central venous catheter terminates in the superior vena cava. Enteric tube courses below the diaphragm, side port is seen in the stomach. The tip is not seen Right upper quadrant surgical clips are seen. Interval dense atelectasis of the right mid and lower lobes. An accessory fissure of the right lower lobe is identified. Interval minimal improvement of the left lower lobe atelectasis. Opacification of the costophrenic angles noted bilaterally indicating small pleural effusion/atelectasis at the costophrenic angle area. Leftward shift of the heart and mediastinum. Report dictated by Heath Wu MD, MD (transporter radiology). Pippa Hester MD have personally reviewed and interpreted this examination/study. > Interpreting Provider: Pippa Kong MD on 08/24/2022 8:46 AM Procedure Note Pippa Kong MD - 08/24/2022 PROCEDURE: XR CHEST 1VW PORTABLE, DATE/TIME OF EXAM: 08/23/2022 5:11PM, LOCATION [facility] INDICATION: J20.9: Acute bronchitis, unspecified organism ADDITIONAL CLINICAL INFORMATION: Ordering Provider Reason For Exam: Trialysis cath placement COMPARISON: Chest x-ray 08/23/2022 FINDINGS/IMPRESSION: Right internal jugular approach central venous catheter terminates inthe superior vena cava. Enteric tube courses below the diaphragm, side port is seen in thestomach. The tip is not seen Right upper quadrant surgical clips are seen. Interval dense atelectasis of the right mid and lower lobes. Anaccessory fissure of the right lower lobe is identified. Interval minimal improvement of the left lower lobe atelectasis. Opacification of the costophrenic angles noted bilaterally indicatingsmall pleural effusion/atelectasis at the costophrenic angle area. Leftward shift of the heart and mediastinum. Report dictated by Heath Wu MD, MD (transporter radiology). Pippa Hester MD have personally reviewed and interpreted this examination/study. > Interpreting Provider: Pippa Kong MD on 28:46 AM Ashvin Barber MD DIAGNOSTIC IMAGING O RDERABLES * (ABNORMAL) RENAL FUNCTION PANEL (08/23/2022 4:29 PM CDT) BUN 69(H) 7 - 26 mg/dL 08/23/2022 5:05 PM [facility] Creatinine 4.06(H) 0.56 - 0.96 mg/dL 08/23/2022 5:05 PM [facility] Sodium 132(L) 136 - 145 mmol/L 08/23/2022 5:05 PM [facility] Potassium 3.8 3.5 - 4.5 mmol/L 08/23/2022 5:05 PM [facility] Chloride 102 98 - 107 mmol/L 08/23/2022 5:05 PM [facility] CO2 15(L) 22 - 29 mmol/L 08/23/2022 5:05 PM [facility] Glucose 106 70 - 115 mg/dL 08/23/2022 5:05 PM [facility] Albumin 2.8(L) 3.4 - 5.0 g/dL 08/23/2022 5:05 PM [facility] Calcium 8.8 8.4 - 10.2 mg/dL 08/23/2022 5:05 PM [facility] Phosphorus 8.0(H) 2.9 - 5.1 mg/dL 08/23/2022 5:05 PM [facility] Anion Gap 19(H) 8 - 18 08/23/2022 5:05 PM [facility] BUN/Creatinine Ratio 17 7 - 23 08/23/2022 5:05 PM [facility] Osmolality Calculated 295 270 - 300 mOsm/kg 08/23/2022 5:05 PM [facility] eGFR by CKD-EPI 11(L) >=90 mL/min/1.7 3 m2 08/23/2022 5:05 PM [facility] Blood BLOOD SPECIMEN / Unknown Venipuncture / Unknown 08/23/2022 4:29 PM CDT 08/23/2022 4:40 PM CDT Héctor Silva MD LAB - CHEMISTRY PATRICIA CASIANO [facility] [address] [place] [address], [facility] [phone] * ECHO LIMITED OR FOLLOWUP (08/23/2022 9:34 AM CDT) Anatomical Region Laterality Modality Chest Echo 08/23/2022 9:13 AM CDT Narrative Procedure Note Catarina Dobbins MD - 08/23/2022 Héctor Silva MD ECHOCARDIOGRAPHY RAD IANT * (ABNORMAL) RENAL FUNCTION PANEL (08/23/2022 4:22 AM CDT) BUN 64(H) 7 - 26 mg/dL 08/23/2022 4:53 AM [facility] Creatinine 3.99(H) 0.56 - 0.96 mg/dL 08/23/2022 4:53 AM [facility] Sodium 132(L) 136 - 145 mmol/L 08/23/2022 4:53 AM [facility] Potassium 3.9 3.5 - 4.5 mmol/L 08/23/2022 4:53 AM [facility] Chloride 99 98 - 107 mmol/L 08/23/2022 4:53 AM [facility] CO2 15(L) 22 - 29 mmol/L 08/23/2022 4:53 AM [facility] Glucose 129(H) 70 - 115 mg/dL 08/23/2022 4:53 AM [facility] Albumin 2.9(L) 3.4 - 5.0 g/dL 08/23/2022 4:53 AM [facility] Calcium 9.1 8.4 - 10.2 mg/dL 08/23/2022 4:53 AM [facility] Phosphorus 7.8(H) 2.9 - 5.1 mg/dL 08/23/2022 4:53 AM [facility] Anion Gap 22(H) 8 - 18 08/23/2022 4:53 AM [facility] BUN/Creatinine Ratio 16 7 - 23 08/23/2022 4:53 AM T [facility] Osmolality Calculated 294 270 - 300 mOsm/kg 08/23/2022 4:53 AM T [facility] eGFR by CKD-EPI 11(L) >=90 mL/min/1.7 3 m2 08/23/2022 4:53 AM T [facility] Blood BLOOD SPECIMEN / Unknown Venipuncture / Unknown 08/23/2022 4:22 AM CDT 08/23/2022 4:26 AM CDT Héctor Silva MD LAB - CHEMISTRY PATRICIA CASIANO Performing Organization Address City/[facility]/ZIP Co de Phone Number [facility] [address] [place] [address], [facility] [phone] * MAGNESIUM BLOOD (08/23/2022 4:22 AM CDT) Magnesium 2.2 1.6 - 2.6 mg/dL 08/23/2022 4:53 AM T [facility] Blood BLOOD SPECIMEN / Unknown Venipuncture / Unknown 08/23/2022 4:22 AM CDT 08/23/2022 4:26 AM CDT Héctor Silva MD LAB - CHEMISTRY PATRICIA CASIANO Performing Organization Address [facility]/ZIP Co de Phone Number [facility] [address] [place] [id number], [place] [phone] * PT-INR [facility] (08/23/2022 4:22 AM CDT) PT 13.0 12.1 - 14.8 Seconds 08/23/2022 4:55 AM [facility] INR 1.0 See Comment 08/23/2022 4:55 AM [facility] Comment:The suggested therap eutic range for standard coumadin (warfarin) therapy is an INR of 2.0-3.0. For high-risk patients (Mechanical Mitral Valve Prosthesis, etc.), the suggested prophylactic therapeutic range is an INR of 2.5-3.5. Blood BLOOD SPECIMEN / Unknown Venipuncture / Unknown 08/23/2022 4:22 AM CDT 08/23/2022 4:26 AM CDT Héctor Silva MD LAB - COAGULATION OR DERABLES [facility] [address] [place] [address], [facility] [facility] [phone] * (ABNORMAL) CBC W/O DIFFERENTIAL (08/23/2022 4:22 AM CDT) WBC 8.6 3.5 - 10.5 10? 3 /uL 08/23/2022 4:38 AM [facility] RBC 2.61(L) 3.80 - 5.20 10? 6 /uL 08/23/2022 4:38 AM [facility] Hemoglobin 7.5(L) 12.0 - 15.6 g/dL 08/23/2022 4:38 AM [facility] Hematocrit 22.3(L) 35.0 - 45.0 % 08/23/2022 4:38 AM [facility] MCV 85.4 80.7 - 98.3 fL 08/23/2022 4:38 AM [facility] MCH 28.7 26.7 - 34.0 pg 08/23/2022 4:38 AM [facility] MCHC 33.6 30.8 - 35.9 g/dL 08/23/2022 4:38 AM [facility] Platelet Count 184 150 - 400 10? 3 /uL 08/23/2022 4:38 AM [facility] RDW-SD 41.6 36.0 - 50.0 fL 08/23/2022 4:38 AM [facility] RDW-CV 13.4 11.2 - 14.8 % 08/23/2022 4:38 AM [facility] MPV 9.4 9.4 - 12.9 fL 08/23/2022 4:38 AM [facility] nRBC Absolute 0.00 0 10? 3 /uL 08/23/2022 4:38 AM [facility] nRBC Auto 0.0 0 /100 WBC 08/23/2022 4:38 AM CDT [facility] Blood BLOOD SPECIMEN / Unknown Venipuncture / Unknown 08/23/2022 4:22 AM CDT 08/23/2022 4:26 AM CDT Héctor Silva MD LAB - HEMATOLOGY ORD ERABLES [facility] [address] [place] [address], [facility] [phone] * XR CHEST 1VW PORTABLE (08/23/2022 2:49 AM CDT) Anatomical Region Laterality Modality Chest Radiographic Marychuy ging 08/23/2022 8:34 AM CDT Impressions 08/23/2022 9:46 AM CDT IMPRESSION: Right greater than left pleural effusions with associated atelectasis and airspace disease with pulmonary vascular congestion on the right likely secondary to a layering component of the effusion. Overall, this appears worsened compared to chest x-ray from 08/21/2022 The masslike consolidation on the CT is not well visualized in this examination. Report dictated by Heath Wu MD, (transporter radiology). I, Juwan Aceves have personally reviewed and interpreted this examination/study. > Interpreting Provider: Juwan Aceves on 08/23/2022 9:46 AM Narrative 08/23/2022 9:46 AM CDT PROCEDURE: ??XR CHEST 1VW PORTABLE, DATE/TIME OF EXAM: ??08/23/2022 2:50 AM, LOCATION ??[facility] INDICATION: R06.02: SOB (shortness of breath) ADDITIONAL CLINICAL INFORMATION: Ordering Provider Reason For Exam: ??new baseline cxr COMPARISON: CT chest 08/22/2022, chest x-ray 08/21/2022 FINDINGS/IMPRESSION: Enteric tube courses below the diaphragm, side port is seen in the stomach. Bilateral pleural effusions, greater on the right. Some of the pleural fluid on the right can be seen within the right minor fissure. There is associated atelectasis and/or airspace disease in this region with pulmonary vascular congestion in the right. There is a small left pleural effusion with lingular airspace opacities. There is no pneumothorax. The cardiac silhouette is obscured. Mild widening of the superior mediastinal silhouette. Degenerative disease in the shoulders. Contrast is seen within the stomach. Procedure Note Juwan Aceves MD - 08/23/2022 PROCEDURE: XR CHEST 1VW PORTABLE, DATE/TIME OF EXAM: 08/23/2022 2:50AM, LOCATION [facility] INDICATION: R06.02: SOB (shortness of breath) ADDITIONAL CLINICAL INFORMATION: Ordering Provider Reason For Exam: new baseline cxr COMPARISON: CT chest 08/22/2022, chest x-ray 08/21/2022 FINDINGS/IMPRESSION: Enteric tube courses below the diaphragm, side port is seen in thestomach. Bilateral pleural effusions, greater on the right. Some of the pleural fluid on the right can be seen within the right minor fissure. There is associated atelectasis and/or airspace disease in this region with pulmonary vascular congestion in the right. There is a small leftpleural effusion with lingular airspace opacities. There is no pneumothorax. The cardiac silhouette is obscured. Mild widening of the superiormediastinal silhouette. Degenerative disease in the shoulders. Contrast is seenwithin the stomach. IMPRESSION: Right greater than left pleural effusions with associated atelectasisand airspace disease with pulmonary vascular congestion on the right likely secondary to a layering component of the effusion. Overall, this appears worsened compared to chest x-ray from 08/21/2022 The masslike consolidation on the CT is not well visualized in this examination. Report dictated by Heath Wu MD, MD (transporter radiology). I, Juwan Aceves have personally reviewed and interpreted this examination/study. > Interpreting Provider: Juwan Aceves on 08/23/2022 9:46 AM Héctor Silva MD DIAGNOSTIC IMAGING O RDERABLES * LACTIC ACID BLOOD (08/22/2022 8:21 PM CDT) Lactic Acid-Stat 0.6 <=2.0 mmol/L 08/22/2022 8:52 PM [facility] Blood BLOOD SPECIMEN / Unknown Venipuncture / Unknown 08/22/2022 8:21 PM CDT 08/22/2022 8:26 PM T Héctor Silva MD LAB - CHEMISTRY PATRICIA CASIANO [facility] Organization Address City/State/ZIP Co de Phone Number [facility] [address] [place] [address], [facility] [phone] * (ABNORMAL) BLOOD GASES ART + COOX PANEL (08/22/2022 6:01 PM CDT) pH Arterial 7.29(L) 7.35 - 7.45 pH 08/22/2022 6:06 PM [facility] pO2 Arterial 66(L) 80 - 100 mmHg 08/22/2022 6:06 PM [facility] pCO2 Arterial 33(L) 35 - 45 mmHg 6:06 PM [facility] HCO3 Arterial 16(L) 20 - 30 mmol/l 08/22/2022 6:06 PM [facility] BE Arterial -9.8(L) -2.0 - 2.0 mmol/L 08/22/2022 6:06 PM [facility] Oxyhemoglobin Arterial 94.7 % 08/22/2022 6:06 PM [facility] Dexoyhemoglobin (HHB) % 3.3 % 08/22/2022 6:06 PM [facility] Methemoglobin <0.8 0.0 - 2.0 % 08/22/2022 6:06 PM [facility] Carboxyhemoglobin 1.7 0.0 - 2.0 % 2021 6:06 PM [facility] O2 Content Arterial 10.3 Interpret within clinical context ml/dL 08/22/2022 6:06 PM [facility] Hemoglobin by COOX 7.7(L) 12.0 - 15.6 g/dL 08/22/2022 6:06 PM [facility] O2 Saturation Arterial 97 90 - 100 % 08/22/2022 6:06 PM CDT [facility] FI O2 Arterial 40.0 % 08/22/2022 6:06 PM CDT [facility] Blood, arterial ARTERIAL BLOOD SPECIMEN / Unknown Arterial Puncture / Unknown 08/22/2022 6:01 PM CDT 08/22/2022 6:04 PM CDT Narrative [facility] - 08/22/2022 6:06 PM CDT Carboxyhemoglobin Normal Concentration: Non-smokers: 0-2%; Smokers: 0-9%; Toxic: >20% Héctor Silva MD LAB - BLOOD GASES OR DERABLES [facility] [address] [place] [address], [facility] [phone] * XR ABDOMEN KUB PORTABLE (08/22/2022 3:42 [...] stomach. Report dictated by German Aponte MD (transporter radiology). Corey Hester MD have personally reviewed and [...] stomach. Report dictated by German Aponte MD (transporter radiology). Corey Hester MD have personally reviewed and interpreted this examination/study. > Interpreting Provider: Corey Min MD on 08/22/2022 9:37 PM Héctor Silva MD DIAGNOSTIC IMAGING O RDERABLES * (ABNORMAL) RENAL FUNCTION PANEL (08/22/2022 3:28 PM [facility]) BUN 64(H) 7 - 26 mg/dL 08/22/2022 4:29 PM [facility] Creatinine 3.92(H) 0.56 - 0.96 mg/dL 08/22/2022 4:29 PM [facility] Sodium 130(L) 136 - 145 mmol/L 08/22/2022 4:29 PM [facility] Potassium 3.8 3.5 - 4.5 mmol/L 08/22/2022 4:29 PM [facility] Chloride 98 98 - 107 mmol/L 08/22/2022 4:29 PM [facility] CO2 16(L) 22 - 29 mmol/L 08/22/2022 4:29 PM [facility] Glucose 142(H) 70 - 115 mg/dL 08/22/2022 4:29 PM [facility] Albumin 3.1(L) 3.4 - 5.0 g/dL 08/22/2022 4:29 PM [facility] Calcium 9.3 8.4 - 10.2 mg/dL 08/22/2022 4:29 PM [facility] Phosphorus 7.2(H) 2.9 - 5.1 mg/dL 08/22/2022 4:29 PM [facility] Anion Gap 20(H) 8 - 18 08/22/2022 4:29 PM [facility] BUN/Creatinine Ratio 16 7 - 23 08/22/2022 4:29 PM [facility] Osmolality Calculated 291 270 - 300 mOsm/kg 08/22/2022 4:29 PM [facility] eGFR by CKD-EPI 11(L) >=90 mL/min/1.7 3 m2 08/22/2022 4:29 PM [facility] Blood BLOOD SPECIMEN / Unknown Lab Venipuncture / Unknown 08/22/2022 3:28 PM CDT 08/22/2022 4:02 PM CDT Héctor Silva MD LAB - CHEMISTRY LEOSundeep MARKAMINATA [facility] Organization Address City/State/ZIP Co de Phone Number [place] [phone] [place] [address], [facility] [phone] * FL SWALLOWING FUNCTION STUDY (08/22/2022 2:30 PM CDT) Anatomical Region Laterality Modality Chest Radiographic Marychuy ging 08/22/2022 2:37 PM CDT Impressions 08/22/2022 9:28 PM CDT IMPRESSION: Fluoroscopy was provided for a procedure that was performed by Speech Therapy. Please see the Speech Therapy report for interpretation. Report dictated by German Aponte MD (transporter radiology) Croey Hester MD have personally reviewed and interpreted this examination/study. > Interpreting Provider: Corey Min MD on 08/22/2022 9:28 PM Narrative 08/22/2022 9:28 PM CDT EXAMINATION: Modified barium swallow HISTORY: R13.10: Swallowing dysfunction COMPARISON: None. Procedure Note Nati Min MD - 08/22/2022 EXAMINATION: Modified barium swallow HISTORY: R13.10: Swallowing dysfunction COMPARISON: None. IMPRESSION: Fluoroscopy was provided for a procedure that was performed by Speech Therapy. Please see the Speech Therapy report for interpretation. Report dictated by German Aponte MD (transporter radiology) Corey Hester MD have personally reviewed and interpreted this examination/study. > Interpreting Provider: Corey Min MD on 08/22/2022 9:28 PM Héctor Silva MD FLUOROSCOPY ORDERABL ES * CT HEAD WO CONTRAST (08/22/2022 1:40 PM CDT) Anatomical Region Laterality Modality Head Computed Tomogra phy 08/23/2022 10:5 6 AM CDT Impressions 08/23/2022 11:03 AM CDT IMPRESSION: 1. Evolving small volume of hemorrhage in the dorsal hilary with minimal surrounding vasogenic edema. No new areas of hyperdensities/new foci of hemorrhage.. > Interpreting Provider: Rosa Davis MD on 08/23/2022 11:03 AM Narrative 08/23/2022 11:03 AM CDT PROCEDURE: ??CT HEAD WO CONTRAST, DATE/TIME OF EXAM: ??08/22/2022 1:41 PM, LOCATION ??[facility] INDICATION: I60.9: Subarachnoid hemorrhage (CMS/HCC) ADDITIONAL CLINICAL INFORMATION: Ordering Provider Reason For Exam: ??eval f/u sah COMPARISON: CT head outside study 08/15/2022, MRI 08/15/2022 TECHNIQUE: Noncontrast CT brain was performed utilizing standard protocol. CT dose reduction technique was used, including Automated Exposure Control. FINDINGS: Redemonstration of small amount of blood products in the hilary with minimal surrounding vasogenic edema persisting involving the pontine hemorrhage. Unchanged hypoattenuation in the periventricular white matter most likely sequela of chronic ischemic small vessel disease. No new areas of hyperdensities. No intraventricular blood products noted.There is mild cerebral volume loss with associated ex vacuo ventricular dilatation. The basilar cisterns are patent. No mass effect or midline shift is seen. The mari-white matter differentiation otherwise appears normal. ??Other than bilateral cataract extractions, the visualized portions of the orbits, paranasal sinuses, and mastoids appear normal. No acute fracture is identified. Procedure Note Rosa Davis MD - 08/23/2022 PROCEDURE: CT HEAD WO CONTRAST, DATE/TIME OF EXAM: 08/22/2022 1:41 PM, LOCATION [facility] INDICATION: I60.9: Subarachnoid hemorrhage (CMS/HCC) ADDITIONAL CLINICAL INFORMATION: Ordering Provider Reason For Exam: eval f/u sah COMPARISON: CT head outside study 08/15/2022, MRI 08/15/2022 TECHNIQUE: Noncontrast CT brain was performed utilizing standard protocol. CT dose reduction technique was used, including Automated ExposureControl. FINDINGS: Redemonstration of small amount of blood products in the hilary withminimal surrounding vasogenic edema persisting involving the pontine hemorrhage. Unchanged hypoattenuation in the periventricular white matter mostlikely sequela of chronic ischemic small vessel disease. No new areas of hyperdensities. No intraventricular blood products noted.There is mild cerebral volume loss with associated ex vacuo ventricular dilatation.The basilar cisterns are patent. No mass effect or midline shift is seen.The mari-white matter differentiation otherwise appears normal. Other than bilateral cataract extractions, the visualized portions of the orbits, paranasal sinuses, and mastoids appear normal. No acute fracture is identified. IMPRESSION: 1. Evolving small volume of hemorrhage in the dorsal hilary with minimal surrounding vasogenic edema. No new areas of hyperdensities/new foci of hemorrhage.. > Interpreting Provider: Rosa Davis MD on 08/23/2022 11:03 AM Héctor Silva MD CT ORDERABLES * CT CHEST WO CONTRAST (08/22/2022 8:33 AM CDT) Anatomical Region Laterality Modality Chest Computed Tomogra phy 08/22/2022 9:31 AM CDT Impressions 08/22/2022 1:28 PM CDT IMPRESSION: 1.Bilateral, moderate right and small left, pleural effusions. 2.Suggestion of pulmonary congestion in the setting of mild cardiomegaly. 3.Indeterminate masslike para-bronchovascular consolidation along with segmental right lower lobe bronchus with interval development of right lower lobe atelectatic collapse. There is no clear correlate for these findings on prior chest radiographs. However, this may blend with the right main pulmonary artery on frontal views. Findings favor interval development of infectious/inflammatory etiology with postobstructive atelectasis/mucus plugging. Recommend short-term follow-up CT chest with contrast to document resolution. Recommend new baseline chest radiograph, PA and lateral if able. Findings verbally relayed to Dr. Guadalupe by Mikel Reyez M.D. at 1328 on 08/22/2022. > Dictated by Ron Marvin MD (transporter radiology) I, MIKEL REYEZ MD have personally reviewed and interpreted this examination/study. > Interpreting Provider: MIKEL REYEZ MD on 08/22/2022 1:28 PM Narrative 08/22/2022 1:28 PM CDT PROCEDURE: ??CT CHEST WO CONTRAST, DATE/TIME OF EXAM: ??08/22/2022 8:34 AM, LOCATION ??[facility] INDICATION: R07.9: Chest pain, unspecified type COMPARISON: None. TECHNIQUE: CT of the chest without intravenous contrast. Coronal and sagittal reformatted images were submitted. FINDINGS: Evaluation is limited due to motion artifact. Within these limitations: Lower neck/axilla: There is a 1.2 cm hypoattenuating nodule in the left thyroid lobe. There is no axillary lymphadenopathy. Hazy fat stranding in the right axilla, nonspecific. Mediastinum: Intraluminal nodular density at the posterior aspect of the trachea (series 3 image 10). There is no mediastinal or hilar lymphadenopathy. Cardiac: The heart size is borderline enlarged. Trace pericardial fluid is noted. Coronary artery and aortic arch calcifications are noted. Indistinct outline of the aortic arch favored to be due to motion artifact. Pulmonary: Moderate right and small left pleural effusion with associated compressive atelectasis. Hazy groundglass opacification with mild interlobular septal thickening is seen throughout both lungs. There is masslike peribronchial vascular consolidation in the right lower lobe (series 4 image 54, series 6 image 72), which measures approximately 3.5 x 3.0 x 1.4 cm in maximum axial craniocaudal dimensions. This causes stenosis of the subjacent right lower lobe bronchi with resultant atelectatic collapse. There is prominent opacification, favored to represent pulmonary artery and chest radiograph dated 08/21/2022. Bones/soft tissues: Multilevel degenerative changes are seen throughout the spine. Prominent Schmorl's node at the superior endplate of the T11 vertebral body. No acute osseous injury. Laddering of the sternum due to motion artifact. Degenerative changes at the right greater than left shoulder joints. The soft tissues are grossly unremarkable. Abdomen: The visualized upper abdominal viscera appear unremarkable. The gallbladder surgically absent. Procedure Note Mikel Reyez MD - 08/22/2022 PROCEDURE: CT CHEST WO CONTRAST, DATE/TIME OF EXAM: 08/22/2022 8:34AM, LOCATION [facility] INDICATION: R07.9: Chest pain, unspecified type COMPARISON: None. TECHNIQUE: CT of the chest without intravenous contrast. Coronal and sagittal reformatted images were submitted. FINDINGS: Evaluation is limited due to motion artifact. Within these limitations: Lower neck/axilla: There is a 1.2 cm hypoattenuating nodule in the left thyroid lobe. There is no axillary lymphadenopathy. Hazy fat strandingin the right axilla, nonspecific. Mediastinum: Intraluminal nodular density at the posterior aspect of the trachea (series 3 image 10). There is no mediastinal or hilar lymphadenopathy. Cardiac: The heart size is borderline enlarged. Trace pericardial fluidis noted. Coronary artery and aortic arch calcifications are noted.Indistinct outline of the aortic arch favored to be due to motion artifact. Pulmonary: Moderate right and small left pleural effusion withassociated compressive atelectasis. Hazy groundglass opacification with mild interlobular septal thickening is seen throughout both lungs. There is masslike peribronchial vascular consolidation in the right lower lobe (series 4 image 54, series 6 image 72), which measures approximately 3.5x 3.0 x 1.4 cm in maximum axial craniocaudal dimensions. This causesstenosis of the subjacent right lower lobe bronchi with resultant atelectatic collapse. There is prominent opacification, favored to representpulmonary artery and chest radiograph dated 08/21/2022. Bones/soft tissues: Multilevel degenerative changes are seen throughoutthe spine. Prominent Schmorl's node at the superior endplate of the T11 vertebral body. No acute osseous injury. Laddering of the sternum due to motion artifact. Degenerative changes at the right greater than left shoulder joints. The soft tissues are grossly unremarkable. Abdomen: The visualized upper abdominal viscera appear unremarkable. The gallbladder surgically absent. IMPRESSION: 1.Bilateral, moderate right and small left, pleural effusions. 2.Suggestion of pulmonary congestion in the setting of mildcardiomegaly. 3.Indeterminate masslike para-bronchovascular consolidation along with segmental right lower lobe bronchus with interval development of right lower lobe atelectatic collapse. There is no clear correlate for these findings on prior chest radiographs. However, this may blend with theright main pulmonary artery on frontal views. Findings favor intervaldevelopment of infectious/inflammatory etiology with postobstructiveatelectasis/mucus plugging. Recommend short-term follow-up CT chest with contrast todocument resolution. Recommend new baseline chest radiograph, PA and lateral if able. Findings verbally relayed to Dr. Guadalupe by Mikel Reyez M.D. at 1328on 08/22/2022. > Dictated by Ron Marvin MD (transporter radiology) I, MIKEL REYEZ MD have personally reviewed and interpreted this examination/study. > Interpreting Provider: MIKEL REYEZ MD on 08/22/2022 1:28 PM Heraclio Cabrera MD CT ORDERABLES * XR CHEST 1VW (08/22/2022 8:31 AM CDT) Anatomical Region Laterality Modality Chest Radiographic Marychuy ging 08/23/2022 12:2 5 PM CDT Narrative 08/23/2022 12:27 PM CDT PROCEDURE: ??XR CHEST 1VW, DATE/TIME OF EXAM: ??08/23/2022 10:15 AM, LOCATION [facility] INDICATION: R06.02: SOB (shortness [...] 1VW, DATE/TIME OF EXAM: 08/23/2022 10:15 AM,LOCATION [facility] INDICATION: R06.02: SOB (shortness [...] MD DIAGNOSTIC IMAGING O RDERABLES * (ABNORMAL) BLOOD GASES ART + COOX PANEL (08/22/2022 8:16 AM [facility]) pH Arterial 7.31(L) 7.35 - 7.45 pH 08/22/2022 8:43 AM [facility] pO2 Arterial 93 80 - 100 mmHg 08/22/2022 8:43 AM [facility] pCO2 Arterial 32(L) 35 - 45 mmHg 8:43 AM [facility] HCO3 Arterial 16(L) 20 - 30 mmol/l 08/22/2022 8:43 AM [facility] BE Arterial -9.1(L) -2.0 - 2.0 mmol/L 08/22/2022 8:43 AM [facility] Oxyhemoglobin Arterial 96.9 % 08/22/2022 8:43 AM [facility] Dexoyhemoglobin (HHB) % 1.5 % 08/22/2022 8:43 AM [facility] Methemoglobin <0.8 0.0 - 2.0 % 08/22/2022 8:43 AM [facility] Carboxyhemoglobin 1.0 0.0 - 2.0 % 2021 8:43 AM [facility] O2 Content Arterial 15.5 Interpret within clinical context ml/dL 08/22/2022 8:43 AM [facility] Hemoglobin by COOX 11.3(L) 12.0 - 15.6 g/dL 08/22/2022 8:43 AM [facility] O2 Saturation Arterial 99 90 - 100 % 08/22/2022 8:43 AM [facility] FI O2 Arterial 26.0 % 08/22/2022 8:43 AM [facility] Blood, arterial ARTERIAL BLOOD SPECIMEN / Unknown Arterial Puncture / Unknown 08/22/2022 8:16 AM CDT 08/22/2022 8:24 AM CDT Narrative [facility] - 08/22/2022 8:43 AM CDT Carboxyhemoglobin Normal Concentration: Non-smokers: 0-2%; Smokers: 0-9%; Toxic: >20% Héctor Silva MD LAB - BLOOD GASES OR DERABLES Performing Organization Address [facility]/ZIP Co de Phone Number [address] [address], [facility] [phone] * (ABNORMAL) TROPONIN I (08/22/2022 7:47 AM CDT) Pathologist [facility] Troponin I 0.037(H) <0.032 ng/mL 08/22/2022 8:49 AM CDT [facility] Blood BLOOD SPECIMEN / Unknown Lab Venipuncture / Unknown 08/22/2022 7:47 AM CDT 08/22/2022 8:16 AM CDT Héctor Silva MD LAB - CHEMISTRY ORDE RABLES Performing Organization Address [facility] Co de Phone Number [address] [address], [facility] [phone] * (ABNORMAL) RENAL FUNCTION PANEL (08/22/2022 7:47 AM CDT) BUN 63(H) 7 - 26 mg/dL 08/22/2022 8:46 AM CDT [facility] Creatinine 4.00(H) 0.56 - 0.96 mg/dL 08/22/2022 8:46 AM CDT [facility] Sodium 129(L) 136 - 145 mmol/L 08/22/2022 8:46 AM CDT [facility] Potassium 3.8 3.5 - 4.5 mmol/L 08/22/2022 8:46 AM CDT [facility] Chloride 99 98 - 107 mmol/L 08/22/2022 8:46 AM T [facility] CO2 17(L) 22 - 29 mmol/L 08/22/2022 8:46 AM [facility] Glucose 114 70 - 115 mg/dL 08/22/2022 8:46 AM [facility] Albumin 3.0(L) 3.4 - 5.0 g/dL 08/22/2022 8:46 AM [facility] Calcium 9.1 8.4 - 10.2 mg/dL 08/22/2022 8:46 AM [facility] Phosphorus 6.6(H) 2.9 - 5.1 mg/dL 08/22/2022 8:46 AM [facility] Anion Gap 17 8 - 18 08/22/2022 8:46 AM [facility] BUN/Creatinine Ratio 16 7 - 08/22/2022 8:46 AM [facility] Osmolality Calculated 287 270 - 300 mOsm/kg 08/22/2022 8:46 AM [facility] eGFR by CKD-EPI 11(L) >=90 mL/min/1.7 3 m2 08/22/2022 8:46 AM [facility] Blood BLOOD SPECIMEN / Unknown Lab Venipuncture / Unknown 08/22/2022 7:47 AM CDT 08/22/2022 8:17 AM CDT Héctor Silva MD LAB - CHEMISTRY PATRICIA CASIANO [address] [address], [facility] [phone] * MAGNESIUM BLOOD (08/22/2022 7:47 AM CDT) Magnesium 2.3 1.6 - 2.6 mg/dL 08/22/2022 8:46 AM T [facility] Blood BLOOD SPECIMEN / Unknown Lab Venipuncture / Unknown 08/22/2022 7:47 AM CDT 08/22/2022 8:17 AM CDT Héctor Silva MD LAB - CHEMISTRY PATRICIA CASIANO [address] [address], [facility] [phone] * PT-INR [facility] (08/22/2022 7:47 AM CDT) [facility] PT 12.2 12.1 - 14.8 Seconds 08/22/2022 8:40 AM CDT [facility] INR 0.9 See Comment 08/22/2022 8:40 AM T [facility] Comment:The suggested therap eutic range for standard coumadin (warfarin) therapy is an INR of 2.0-3.0. For high-risk patients (Mechanical Mitral Valve Prosthesis, etc.), the suggested prophylactic therapeutic range is an INR of 2.5-3.5. Blood BLOOD SPECIMEN / Unknown Lab Venipuncture / Unknown 08/22/2022 7:47 AM CDT 08/22/2022 8:17 AM CDT Héctor Silva MD LAB - COAGULATION OR DERABLES Performing Organization Address City/State/[facility] Co de Phone Number [address] [address], [facility] [phone] * (ABNORMAL) CBC W/O DIFFERENTIAL (08/22/2022 7:47 AM CDT) [facility] WBC 5.4 3.5 - 10.5 10? 3 /uL 08/22/2022 8:29 AM [facility] RBC 2.87(L) 3.80 - 5.20 10? 6 /uL 08/22/2022 8:29 AM [facility] Hemoglobin 8.2(L) 12.0 - 15.6 g/dL 08/22/2022 8:29 AM [facility] Hematocrit 24.3(L) 35.0 - 45.0 % 08/22/2022 8:29 AM [facility] MCV 84.7 80.7 - 98.3 fL 08/22/2022 8:29 AM T [facility] MCH 28.6 26.7 - 34.0 pg 08/22/2022 8:29 AM T [facility] MCHC 33.7 30.8 - 35.9 g/dL 08/22/2022 8:29 AM [facility] Platelet Count 206 150 - 400 10? 3 /uL 08/22/2022 8:29 AM [facility] RDW-SD 39.9 36.0 - 50.0 fL 08/22/2022 8:29 AM [facility] RDW-CV 13.2 11.2 - 14.8 % 08/22/2022 8:29 AM [facility] MPV 9.8 9.4 - 12.9 fL 08/22/2022 8:29 AM [facility] nRBC Absolute 0.00 0 10? 3 /uL 08/22/2022 8:29 AM [facility] nRBC Auto 0.0 0 /100 WBC 08/22/2022 8:29 AM [facility] Blood BLOOD SPECIMEN / Unknown Lab Venipuncture / Unknown 08/22/2022 7:47 AM CDT 08/22/2022 8:17 AM CDT Héctor Silva MD LAB - HEMATOLOGY ORD ERABLES [address] [address], [facility] [phone] * UREA NITROGEN URINE RANDOM (08/22/2022 3:52 AM CDT) Urea Nitrogen Random Urine 186 Not Established mg/dL 08/22/2022 4:26 AM T [facility] Urine URINE SPECIMEN OBTAINED BY CLEAN CATCH PROCEDURE / Unknown Collection / Unknown 08/22/2022 3:52 AM CDT 08/22/2022 3:58 AM CDT Héctor Silva MD LAB - URINE CHEMISTR Y ORDERABLES [address] [address], [facility] [phone] * OSMOLALITY URINE (08/22/2022 3:52 AM CDT) Osmolality Urine 309 50 - 1,200 mOsm/kg 08/22/2022 5:38 AM CDT [facility] Urine URINE SPECIMEN OBTAINED BY CLEAN CATCH PROCEDURE / Unknown Collection / Unknown 08/22/2022 3:52 AM CDT 08/22/2022 3:58 AM CDT Héctor Silva MD LAB - URINE CHEMISTR Y ORDERABLES [address] [address], [facility] [phone] * CREATININE URINE RANDOM (08/22/2022 3:52 AM CDT) Creatinine Urine 30 Not Established mg/dL 08/22/2022 4:26 AM CDT [facility] Urine URINE SPECIMEN OBTAINED BY CLEAN CATCH PROCEDURE / Unknown Collection / Unknown 08/22/2022 3:52 AM CDT 08/22/2022 3:58 AM CDT Héctor Silva MD LAB - URINE CHEMISTR Y ORDERABLES Performing Organization Address City/[facility]/ZIP Co de Phone Number [address] [address], [facility] [phone] * LYTES (NA K CL) URINE RANDOM PANEL (08/22/2022 3:52 AM CDT) Sodium Urine 75 Not Established mmol/L 08/22/2022 4:26 AM CDT [facility] Potassium Urine 35.9 Not Established mmol/L 08/22/2022 4:26 AM CDT [facility] Chloride Random Urine 105 Not Established mmol/L 08/22/2022 4:26 AM CDT [facility] Urine URINE SPECIMEN OBTAINED BY CLEAN CATCH PROCEDURE / Unknown Collection / Unknown 08/22/2022 3:52 AM CDT 08/22/2022 3:58 AM CDT Héctor Silva MD LAB - URINE CHEMISTR Y ORDERABLES Performing Organization Address City/[facility]/ZIP Co de Phone Number [address] [place] [address], [facility] [phone] * (ABNORMAL) TROPONIN I (08/21/2022 11:40 PM CDT) [facility] Troponin I 0.058(H) <0.032 ng/mL 08/22/2022 12:05 AM [facility] Blood BLOOD SPECIMEN / Unknown Venipuncture / Unknown 08/21/2022 11:40 PM CDT 08/21/2022 11:44 PM CDT Héctor Silva MD LAB - CHEMISTRY PATRICIA CASIANO [facility] Organization Address City/State/ZIP Co de Phone Number [address] [address], [facility] [phone] * (ABNORMAL) BLOOD GASES ART + COOX PANEL (08/21/2022 7:30 PM CDT) [facility] pH Arterial 7.34(L) 7.35 - 7.45 pH 08/21/2022 7:35 PM [facility] pO2 Arterial 312(H) 80 - 100 mmHg 08/21/2022 7:35 PM [facility] pCO2 Arterial 31(L) 35 - 45 mmHg 7:35 PM [facility] HCO3 Arterial 17(L) 20 - 30 mmol/l 08/21/2022 7:35 PM [facility] BE Arterial -8.2(L) -2.0 - 2.0 mmol/L 08/21/2022 7:35 PM [facility] Oxyhemoglobin Arterial 97.9 % 08/21/2022 7:35 PM [facility] Dexoyhemoglobin (HHB) % 0.2 % 08/21/2022 7:35 PM [facility] Methemoglobin 0.8 0.0 - 2.0 % 08/21/2022 7:35 PM [facility] Carboxyhemoglobin 1.2 0.0 - 2.0 % 2021 7:35 PM [facility] O2 Content Arterial 12.8 Interpret within clinical context ml/dL 08/21/2022 7:35 PM CDT [facility] Hemoglobin by COOX 8.7(L) 12.0 - 15.6 g/dL 08/21/2022 7:35 PM CDT [facility] O2 Saturation Arterial 100 90 - 100 % 08/21/2022 7:35 PM CDT [facility] FI O2 Arterial 100.0 % 08/21/2022 7:35 PM CDT [facility] Blood, arterial ARTERIAL BLOOD SPECIMEN / Unknown Arterial Puncture / Unknown 08/21/2022 7:30 PM CDT 08/21/2022 7:32 PM CDT Narrative [facility] - 08/21/2022 7:35 PM CDT Carboxyhemoglobin Normal Concentration: Non-smokers: 0-2%; Smokers: 0-9%; Toxic: >20% Héctor Silva MD LAB - BLOOD GASES OR DERABLES Performing Organization Address City/[facility]/ZIP Co de Phone Number [facility] [address] [phone], [facility] [phone] * EKG 12-LEAD (08/21/2022 7:22 PM CDT) [facility] Ventricular Rate 75 BPM [facility] MUSE Atrial Rate 75 BPM [facility] M[facility] P-R Interval 212 ms [facility] QRS Duration ms 96 ms [facility] Q-T Interval ms 432 ms [facility] QTC Calculation (Bezet) 482 ms [facility] MUSE Calculated P Shirley 73 degrees [facility] MUSE Calculated R Shirley 25 degrees [facility] M[facility] Calculated T Shirley 52 degrees [facility] Interpretation EKG SINUS RHYTHM WITH 1ST DEGREE A-V BLOCK WITH PREMATURE ATRIAL COMPLEXES OTHERWISE NORMAL ECG WHEN COMPARED WITH ECG OF 21-AUG-2022 11:52, PREMATURE ATRIAL COMPLEXES are new Confirmed by North Andrews ([id number]) on 08/22/2022 8:15:40 PM [facility] MUSE 08/21/2022 7:22 PM CDT 08/22/2022 8:15 PM CDT Héctor Silva MD ECG ORDERABLES Performing Organization Address City/[facility]/ZIP Co de Phone Number [facility] * (ABNORMAL) BASIC METABOLIC PANEL (CALCIUM TOTAL) (08/21/2022 6:25 PM CDT) BUN 59(H) 7 - 26 mg/dL 08/21/2022 6:57 PM T [facility] Creatinine 4.05(H) 0.56 - 0.96 mg/dL 08/21/2022 6:57 PM T [facility] Sodium 127(L) 136 - 145 mmol/L 08/21/2022 6:57 PM T [facility] Potassium 3.9 3.5 - 4.5 mmol/L 08/21/2022 6:57 PM T [facility] Chloride 101 98 - 107 mmol/L 08/21/2022 6:57 PM T [facility] CO2 16(L) 22 - 29 mmol/L 08/21/2022 6:57 PM T [facility] Glucose 123(H) 70 - 115 mg/dL 08/21/2022 6:57 PM T [facility] Calcium 8.8 8.4 - 10.2 mg/dL 08/21/2022 6:57 PM T [facility] Anion Gap 14 8 - 18 08/21/2022 6:57 PM [facility] BUN/Creatinine Ratio 15 7 - 23 08/21/2022 6:57 PM T [facility] Osmolality Calculated 282 270 - 300 mOsm/kg 08/21/2022 6:57 PM [facility] eGFR by CKD-EPI 11(L) >=90 mL/min/1.7 3 m2 08/21/2022 6:57 PM T [facility] Blood BLOOD SPECIMEN / Unknown Lab Venipuncture / Unknown 08/21/2022 6:25 PM CDT 08/21/2022 6:31 PM CDT Héctor Silva MD LAB - CHEMISTRY PATRICIA CASIANO [facility] [address] [place] [address], [facility] [phone] * (ABNORMAL) TROPONIN I (08/21/2022 4:55 PM CDT) Troponin I 0.054(H) <0.032 ng/mL 08/21/2022 5:39 PM CDT [facility] Blood BLOOD SPECIMEN / Unknown Lab Venipuncture / Unknown 08/21/2022 4:55 PM CDT 08/21/2022 5:08 PM CDT Héctor Silva MD LAB - CHEMISTRY PATRICIA CASIANO [address] [address], [place] [phone] * UREA NITROGEN URINE RANDOM (08/21/2022 12:04 PM CDT) Pathologist [facility] Urea Nitrogen Random Urine 528 Not Established mg/dL 08/21/2022 12:33 PM CDT [facility] Urine URINE SPECIMEN OBTAINED BY CLEAN CATCH PROCEDURE / Unknown Collection / Unknown 08/21/2022 12:04 PM CDT 08/21/2022 12:10 PM CDT Héctor Silva MD LAB - URINE CHEMISTR Y ORDERABLES Performing Organization Address [facility] Co de Phone Number [address] [address], [place] [phone] * OSMOLALITY URINE (08/21/2022 12:04 PM CDT) Pathologist [facility] Osmolality Urine 378 50 - 1,200 mOsm/kg 08/21/2022 12:34 PM CDT [facility] Urine URINE SPECIMEN OBTAINED BY CLEAN CATCH PROCEDURE / Unknown Collection / Unknown 08/21/2022 12:04 PM CDT 08/21/2022 12:10 PM CDT Héctor Silva MD LAB - URINE CHEMISTR Y ORDERABLES Performing Organization Address [facility]/ZIP Co de Phone Number [address] [address], [place] [phone] * CREATININE URINE RANDOM (08/21/2022 12:04 PM CDT) Creatinine Urine 93 Not Established mg/dL 08/21/2022 12:33 PM CDT [facility] Urine URINE SPECIMEN OBTAINED BY CLEAN CATCH PROCEDURE / Unknown Collection / Unknown 08/21/2022 12:04 PM CDT 08/21/2022 12:10 PM CDT Héctor Silva MD LAB - URINE CHEMISTR Y ORDERABLES [address] [address], [place] [phone] * SODIUM URINE RANDOM (08/21/2022 12:04 PM CDT) Sodium Urine 25 Not Established mmol/L 08/21/2022 12:33 PM CDT [facility] Urine URINE SPECIMEN OBTAINED BY CLEAN CATCH PROCEDURE / Unknown Collection / Unknown 08/21/2022 12:04 PM CDT 08/21/2022 12:10 PM CDT Héctor Silva MD LAB - URINE CHEMISTR Y ORDERABLES Performing Organization Address City/[facility]/ZIP Co de Phone Number [address] [address], [place] [phone] * LYTES (NA K) URINE RANDOM PANEL (08/21/2022 12:04 PM CDT) Sodium Urine 25 Not Established mmol/L 08/21/2022 12:33 PM CDT [facility] Potassium Urine 52.2 Not Established mmol/L 08/21/2022 12:33 PM CDT [facility] Urine URINE SPECIMEN OBTAINED BY CLEAN CATCH PROCEDURE / Unknown Collection / Unknown 08/21/2022 12:04 PM CDT 08/21/2022 12:10 PM CDT Héctor Silva MD LAB - URINE CHEMISTR Y ORDERABLES Performing Organization Address City/[facility]/ZIP Co de Phone Number [address] [address], [place] [phone] * EKG 12-LEAD (08/21/2022 11:52 AM CDT) [facility] Ventricular Rate 64 BPM [facility] MUSE Atrial Rate 64 BPM [facility] M[facility] P-R Interval 224 ms [facility] QRS Duration ms 86 ms [facility] Q-T Interval ms 444 ms [facility]USE QTC Calculation (Bezet) 458 ms [facility] MUSE Calculated P Shirley 72 degrees [facility] MUSE Calculated R Shirley 20 degrees [facility] MUSE Calculated T Shirley 11 degrees [facility] Interpretation EKG SINUS RHYTHM WITH 1ST DEGREE A-V BLOCK OTHERWISE NORMAL ECG WHEN COMPARED WITH ECG OF 20-AUG-2022 10:08, NONSPECIFIC T WAVE ABNORMALITY NOW EVIDENT IN INFERIOR LEADS NONSPECIFIC T WAVE ABNORMALITY NO LONGER EVIDENT IN LATERAL LEADS Confirmed by North Andrews ([id number]) on 08/22/2022 4:18:01 PM [facility] 08/21/2022 11:5 2 AM CDT 08/22/2022 4:18 PM CDT Héctor Silva MD ECG ORDERABLES [facility] * (ABNORMAL) D-DIMER (08/21/2022 11:23 AM CDT) [facility] D-Dimer Quantitative 3.06(H) <=0.50 mcg/mL FEU 08/21/2022 11:59 AM CDT [facility] Comment: In the absence of clinical [...] Silva MD LAB - COAGULATION OR DERABLES Performing Organization Address [facility]/ZIP Co de Phone Number [address] [address], [place] [phone] * (ABNORMAL) TROPONIN I (08/21/2022 11:23 AM CDT) Troponin I 0.073(H) <0.032 ng/mL 08/21/2022 12:06 PM CDT [facility] Blood BLOOD SPECIMEN / Unknown Lab Venipuncture / Unknown 08/21/2022 11:23 AM CDT 08/21/2022 11:31 AM CDT Héctor Silva MD LAB - CHEMISTRY ORDE RABLES Performing Organization Address [facility]/ZIP Co de Phone Number [address] [address], [place] [phone] * XR CHEST 1VW PORTABLE (08/21/2022 10:23 AM CDT) Anatomical Region Laterality Modality Chest Radiographic Marychuy ging 08/21/2022 10:3 4 AM CDT Narrative 08/21/2022 11:17 PM CDT EXAMINATION: XR CHEST 1VW PORTABLE HISTORY: R06.02: SOB (shortness of breath) COMPARISON: Chest x-ray from 08/20/1992 FINDINGS/IMPRESSION: Small, left greater than right, pleural effusions with associated compressive atelectasis are noted. This is mildly increased on the right. Perihilar and bibasilar predominant interstitial opacification may represent a component of pulmonary congestion, stable to minimally decreased. No pneumothorax is visible. The cardiomediastinal silhouette is normal for portable technique. Degenerative changes are noted in the shoulders. > Dictated by German Aponte MD (transporter radiology). MIKEL Hester MD have personally reviewed and interpreted this examination/study. > Interpreting Provider: MIKEL REYEZ MD on 08/21/2022 11:17 PM Procedure Note Mikel Reyez MD - 08/21/2022 EXAMINATION: XR CHEST 1VW PORTABLE HISTORY: R06.02: SOB (shortness of breath) COMPARISON: Chest x-ray from 08/20/1992 FINDINGS/IMPRESSION: Small, left greater than right, pleural effusions with associated compressive atelectasis are noted. This is mildly increased on theright. Perihilar and bibasilar predominant interstitial opacification may represent a component of pulmonary congestion, stable to minimally decreased. No pneumothorax is visible. The cardiomediastinal silhouette is normalfor portable technique. Degenerative changes are noted in the shoulders. > Dictated by German Aponte MD (transporter radiology). MIKEL Hester MD have personally reviewed and interpreted this examination/study. > Interpreting Provider: MIKEL REYEZ MD on 08/21/2022 11:17 PM Héctor Silva MD DIAGNOSTIC IMAGING O RDERABLES * (ABNORMAL) PHOSPHORUS BLOOD (08/21/2022 2:13 AM CDT) Phosphorus 5.8(H) 2.9 - 5.1 mg/dL 08/21/2022 4:18 AM CDT [facility] Blood BLOOD SPECIMEN / Unknown Lab Venipuncture / Unknown 08/21/2022 2:13 AM CDT 08/21/2022 3:36 AM CDT Héctor Silva MD LAB - CHEMISTRY PATRICIA CASIANO [facility] [address] [place] [address], [place] [phone] * MAGNESIUM BLOOD (08/21/2022 2:13 AM CDT) [facility] Magnesium 2.0 1.6 - 2.6 mg/dL 08/21/2022 4:18 AM CDT [facility] Blood BLOOD SPECIMEN / Unknown Lab Venipuncture / Unknown 08/21/2022 2:13 AM CDT 08/21/2022 3:36 AM CDT Héctor Silva MD LAB - CHEMISTRY PATRICIA CASIANO Performing Organization Address [facility]/ZIP Co de Phone Number [address] [address], [place] [phone] * (ABNORMAL) PT-INR [facility] (08/21/2022 2:13 AM CDT) [facility] PT 11.9(L) 12.1 - 14.8 Seconds 08/21/2022 4:14 AM CDT [facility] INR 0.9 See Comment 08/21/2022 4:14 AM CDT [facility] Comment:The suggested therap eutic range for standard coumadin (warfarin) therapy is an INR of 2.0-3.0. For high-risk patients (Mechanical Mitral Valve Prosthesis, etc.), the suggested prophylactic therapeutic range is an INR of 2.5-3.5. Blood BLOOD SPECIMEN / Unknown Lab Venipuncture / Unknown 08/21/2022 2:13 AM CDT 08/21/2022 4:06 AM CDT Héctor Silva MD LAB - COAGULATION OR DERABLES [address] [address], [place] [phone] * (ABNORMAL) BASIC METABOLIC PANEL (CALCIUM TOTAL) (08/21/2022 2:13 AM CDT) [facility] BUN 63(H) 7 - 26 mg/dL 08/21/2022 4:18 AM [facility] Creatinine 4.29(H) 0.56 - 0.96 mg/dL 08/21/2022 4:18 AM [facility] Sodium 127(L) 136 - 145 mmol/L 08/21/2022 4:18 AM [facility] Potassium 3.9 3.5 - 4.5 mmol/L 08/21/2022 4:18 AM [facility] Chloride 101 98 - 107 mmol/L 08/21/2022 4:18 AM [facility] CO2 15(L) 22 - 29 mmol/L 08/21/2022 4:18 AM [facility] Glucose 110 70 - 115 mg/dL 08/21/2022 4:18 AM [facility] Calcium 8.6 8.4 - 10.2 mg/dL 08/21/2022 4:18 AM [facility] Anion Gap 15 8 - 18 08/21/2022 4:18 AM [facility] BUN/Creatinine Ratio 15 7 - 23 08/21/2022 4:18 AM [facility] Osmolality Calculated 283 270 - 300 mOsm/kg 08/21/2022 4:18 AM [facility] eGFR by CKD-EPI 10(L) >=90 mL/min/1.7 3 m2 08/21/2022 4:18 AM [facility] Blood BLOOD SPECIMEN / Unknown Lab Venipuncture / Unknown 08/21/2022 2:13 AM CDT 08/21/2022 3:36 AM CDT Héctor Silva MD LAB - CHEMISTRY PATRICIA CASIANO [facility] Organization Address City/State/ZIP Co de Phone Number [facility] [address] [place] [phone], [facility] [phone] * (ABNORMAL) CBC W/O DIFFERENTIAL (08/21/2022 2:13 AM CDT) WBC 3.7 3.5 - 10.5 10? 3 /uL 08/21/2022 3:38 AM [facility] RBC 2.67(L) 3.80 - 5.20 10? 6 /uL 08/21/2022 3:38 AM [facility] Hemoglobin 7.5(L) 12.0 - 15.6 g/dL 08/21/2022 3:38 AM [facility] Hematocrit 22.3(L) 35.0 - 45.0 % 08/21/2022 3:38 AM [facility] MCV 83.5 80.7 - 98.3 fL 08/21/2022 3:38 AM [facility] MCH 28.1 26.7 - 34.0 pg 08/21/2022 3:38 AM [facility] MCHC 33.6 30.8 - 35.9 g/dL 08/21/2022 3:38 AM [facility] Platelet Count 164 150 - 400 10? 3 /uL 08/21/2022 3:38 AM [facility] RDW-SD 40.8 36.0 - 50.0 fL 08/21/2022 3:38 AM [facility] RDW-CV 13.3 11.2 - 14.8 % 08/21/2022 3:38 AM [facility] MPV 9.9 9.4 - 12.9 fL 08/21/2022 3:38 AM [facility] nRBC Absolute 0.00 0 10? 3 /uL 08/21/2022 3:38 AM [facility] nRBC Auto 0.0 0 /100 WBC 08/21/2022 3:38 AM [facility] Blood BLOOD SPECIMEN / Unknown Lab Venipuncture / Unknown 08/21/2022 2:13 AM CDT 08/21/2022 3:29 AM CDT Héctor Silva MD LAB - HEMATOLOGY ORD ERABLES [facility] [address] [place] [phone], [facility] [phone] * (ABNORMAL) TROPONIN I (08/20/2022 12:44 PM CDT) Troponin I 0.113(H) <0.032 ng/mL 08/20/2022 1:23 PM CDT [facility] Blood BLOOD SPECIMEN / Unknown Lab Venipuncture / Unknown 08/20/2022 12:44 PM CDT 08/20/2022 12:50 PM CDT Héctor Silva MD LAB - CHEMISTRY PATRICIA CASIANO Performing Organization Address [facility] de Phone Number [facility] [address] [place] [phone], [facility] [phone] * PROCALCITONIN LEVEL (08/20/2022 12:44 PM CDT) PROCALCITONIN 0.10 <=0.10 ng/mL 08/20/2022 1:56 PM CDT [facility] Blood BLOOD SPECIMEN / Unknown Lab Venipuncture / Unknown 08/20/2022 12:44 PM CDT 08/20/2022 12:47 PM CDT Narrative [facility] - 08/20/2022 1:56 PM CDT The [...] Change in Procalcitonin Calculator is available at [email or web address] ?? If clinical picture has not improved and PCT remains high, reevaluate and consider treatment failure or other causes. Héctor Silva MD LAB - CHEMISTRY PATRICIA CASIANO [facility] [address] [place] [address], [facility] [phone] * US RETROPERITONEAL COMPLETE (08/20/2022 11:34 AM CDT) Anatomical Region Laterality Modality Abdomen Ultrasound 08/20/2022 11:4 1 AM CDT Impressions 08/20/2022 1:22 PM CDT IMPRESSION: 1.Normal renal size. No evidence of nephrolithiasis, hydronephrosis, or solid renal mass. 2.1.5 x 1.1 cm simple cyst within the upper pole of the right kidney. 3.Right pleural effusion. > Dictated by Xiao Hamm MD (transporter radiology). ICorey MD have personally reviewed and interpreted this examination/study. > Interpreting Provider: Corey Min MD on 08/20/2022 1:22 PM Narrative 08/20/2022 1:22 PM CDT PROCEDURE: ??US RETROPERITONEAL COMPLETE, DATE/TIME OF EXAM: ??08/20/2022 11:34 AM, LOCATION ??[facility] INDICATION: E87.1: Hyponatremia ADDITIONAL [...] DATE/TIME OF EXAM: 08/20/2022 11:34 AM, LOCATION [facility] INDICATION: E87.1: Hyponatremia ADDITIONAL [...] effusion. > Dictated by Xiao Hamm MD (transporter radiology). ICorey MD have personally reviewed and interpreted this examination/study. > Interpreting Provider: Corey Min MD on 08/20/2022 1:22 PM Héctor Silva MD US ORDERABLES * EKG 12-LEAD (08/20/2022 10:08 AM CDT) Ventricular Rate 59 BPM [facility] Atrial Rate 59 BPM [facility] P-R Interval 216 ms [facility] QRS Duration ms 92 ms [facility] Q-T Interval ms 466 ms [facility] QTC Calculation (Bezet) 461 ms [facility] Calculated P Shirley 62 degrees [facility] Calculated R Shirley 14 degrees [facility] Calculated T Shirley 58 degrees [facility] Interpretation EKG SINUS BRADYCARDIA WITH 1ST DEGREE A-V BLOCK OTHERWISE NORMAL ECG WHEN COMPARED WITH ECG OF 15-AUG-2022 11:29, T WAVE INVERSION NO LONGER EVIDENT IN ANTERIOR LEADS QT HAS SHORTENED Confirmed by [place] Andrews ([id number]) on 08/20/2022 6:54:25 PM [facility] 08/20/2022 10:0 8 AM CDT 08/20/2022 6:54 PM CDT Héctor Silva MD ECG ORDERABLES Performing Organization Address City/[facility]/ZIP Co de Phone Number [facility] * (ABNORMAL) TROPONIN I (08/20/2022 7:51 AM CDT) Troponin I 0.124(H) <0.032 ng/mL 08/20/2022 8:31 AM CDT [facility] Blood BLOOD SPECIMEN / Unknown Lab Venipuncture / Unknown 08/20/2022 7:51 AM CDT 08/20/2022 7:59 AM CDT Héctor Silva MD LAB - CHEMISTRY PATRICIA CASIANO Performing Organization Address City/[facility]/ZIP Co de Phone Number [facility] [address] [place] [phone], [facility] [phone] * XR CHEST 1VW PORTABLE (08/20/2022 7:42 AM CDT) Anatomical Region Laterality Modality Chest Radiographic Marychuy ging 08/20/2022 11:3 3 AM CDT Narrative 08/20/2022 11:34 AM CDT EXAMINATION: XR CHEST 1VW PORTABLE HISTORY: R06.02: SOB (shortness of breath) COMPARISON: Chest radiograph dated 08/16/2022 FINDINGS/IMPRESSION: Lines: *None. Interval development of perihilar and bibasilar predominant airspace opacities may represent pulmonary congestion and/or atelectasis/airspace disease. Slight interval increase in small left pleural effusion with associated basilar atelectasis but No pneumothorax is identified. Cardiac size is normal. Aortic atherosclerosis is noted. The superior mediastinal contours are within normal limits. Degenerative changes are seen in the imaged shoulders. > Interpreting Provider: MIKEL REYEZ MD on 08/20/2022 11:34 AM Procedure Note Mikel Reyez MD - 08/20/2022 EXAMINATION: XR CHEST 1VW PORTABLE HISTORY: R06.02: SOB (shortness of breath) COMPARISON: Chest radiograph dated 08/16/2022 FINDINGS/IMPRESSION: Lines: *None. Interval development of perihilar and bibasilar predominant airspace opacities may represent pulmonary congestion and/or atelectasis/airspace disease. Slight interval increase in small left pleural effusion with associated basilar atelectasis but No pneumothorax is identified.Cardiac size is normal. Aortic atherosclerosis is noted. The superiormediastinal contours are within normal limits. Degenerative changes are seen in the imaged shoulders. > Interpreting Provider: MIKEL REYEZ MD on 08/20/2022 11:34 AM Héctor Silva MD DIAGNOSTIC IMAGING O RDERABLES * (ABNORMAL) PHOSPHORUS BLOOD (08/20/2022 2:50 AM CDT) Phosphorus 6.1(H) 2.9 - 5.1 mg/dL 08/20/2022 3:33 AM CDT [facility] Blood BLOOD SPECIMEN / Unknown Lab Venipuncture / Unknown 08/20/2022 2:50 AM CDT 08/20/2022 3:00 AM CDT Héctor Silva MD LAB - CHEMISTRY PATRICIA CASIANO [address] [address], [facility] [phone] * MAGNESIUM BLOOD (08/20/2022 2:50 AM CDT) Magnesium 2.0 1.6 - 2.6 mg/dL 08/20/2022 3:33 AM CDT [facility] Blood BLOOD SPECIMEN / Unknown Lab Venipuncture / Unknown 08/20/2022 2:50 AM CDT 08/20/2022 3:00 AM CDT Héctor Silva MD LAB - CHEMISTRY PATRICIA CASIANO [facility] [address] [place] [address], [facility] [phone] * PT-INR [facility] (08/20/2022 2:50 AM CDT) Pathologist [facility] PT 13.3 12.1 - 14.8 Seconds 08/20/2022 3:26 AM CDT [facility] INR 1.0 See Comment 08/20/2022 3:26 AM [facility] Comment:The suggested therap eutic range for standard coumadin (warfarin) therapy is an INR of 2.0-3.0. For high-risk patients (Mechanical Mitral Valve Prosthesis, etc.), the suggested prophylactic therapeutic range is an INR of 2.5-3.5. Blood BLOOD SPECIMEN / Unknown Lab Venipuncture / Unknown 08/20/2022 2:50 AM CDT 08/20/2022 3:00 AM CDT Héctor Silva MD LAB - COAGULATION OR DERABLES Performing Organization Address [facility] Co de Phone Number [facility] [address] [place] [address], [facility] [phone] * (ABNORMAL) BASIC METABOLIC PANEL (CALCIUM TOTAL) (08/20/2022 2:50 AM CDT) Pathologist [facility] BUN 66(H) 7 - 26 mg/dL 08/20/2022 3:33 AM [facility] Creatinine 4.57(H) 0.56 - 0.96 mg/dL 08/20/2022 3:33 AM [facility] Sodium 127(L) 136 - 145 mmol/L 08/20/2022 3:33 AM [facility] Potassium 4.1 3.5 - 4.5 mmol/L 08/20/2022 3:33 AM [facility] Chloride 98 98 - 107 mmol/L 08/20/2022 3:33 AM [facility] CO2 16(L) 22 - 29 mmol/L 08/20/2022 3:33 AM T [facility] Glucose 118(H) 70 - 115 mg/dL 08/20/2022 3:33 AM [facility] Calcium 8.2(L) 8.4 - 10.2 mg/dL 08/20/2022 3:33 AM [facility] Anion Gap 17 8 - 18 08/20/2022 3:33 AM [facility] BUN/Creatinine Ratio 14 7 - 23 08/20/2022 3:33 AM [facility] Osmolality Calculated 284 270 - 300 mOsm/kg 08/20/2022 3:33 AM [facility] eGFR by CKD-EPI 9(L) >=90 mL/min/1.7 3 m2 08/20/2022 3:33 AM [facility] Blood BLOOD SPECIMEN / Unknown Lab Venipuncture / Unknown 08/20/2022 2:50 AM CDT 08/20/2022 3:00 AM CDT Héctor Silva MD LAB - CHEMISTRY PATRICIA CASIANO [facility] Organization Address City/State/[facility] Co de Phone Number [address] [address], [facility] [phone] * (ABNORMAL) CBC W/O DIFFERENTIAL (08/20/2022 2:50 AM CDT) WBC 4.0 3.5 - 10.5 10? 3 /uL 08/20/2022 3:13 AM [facility] RBC 2.61(L) 3.80 - 5.20 10? 6 /uL 08/20/2022 3:13 AM [facility] Hemoglobin 7.3(L) 12.0 - 15.6 g/dL 08/20/2022 3:13 AM [facility] Hematocrit 21.8(L) 35.0 - 45.0 % 08/20/2022 3:13 AM [facility] MCV 83.5 80.7 - 98.3 fL 08/20/2022 3:13 AM [facility] MCH 28.0 26.7 - 34.0 pg 08/20/2022 3:13 AM [facility] MCHC 33.5 30.8 - 35.9 g/dL 08/20/2022 3:13 AM CDT [facility] Platelet Count 153 150 - 400 10? 3 /uL 08/20/2022 3:13 AM CDT [facility] RDW-SD 41.1 36.0 - 50.0 fL 08/20/2022 3:13 AM T [facility] RDW-CV 13.4 11.2 - 14.8 % 08/20/2022 3:13 AM T [facility] MPV 9.7 9.4 - 12.9 fL 08/20/2022 3:13 AM T [facility] nRBC Absolute 0.00 0 10? 3 /uL 08/20/2022 3:13 AM T [facility] nRBC Auto 0.0 0 /100 WBC 08/20/2022 3:13 AM T [facility] Blood BLOOD SPECIMEN / Unknown Lab Venipuncture / Unknown 08/20/2022 2:50 AM CDT 08/20/2022 3:00 AM CDT Héctor Silva MD LAB - HEMATOLOGY ORD ERABLES [address] [address], [facility] [phone] * OSMOLALITY BLOOD (08/20/2022 2:50 AM CDT) Osmolality 289 270 - 300 mOsm/kg 08/20/2022 4:11 AM T [facility] Blood BLOOD SPECIMEN / Unknown Lab Venipuncture / Unknown 08/20/2022 2:50 AM CDT 08/20/2022 3:00 AM CDT Héctor Silva MD LAB - CHEMISTRY ORDSundeep CASIANO [address] [address], [facility] [phone] * TRIGLYCERIDES BLOOD (08/20/2022 2:50 AM CDT) Triglycerides 64 <150 mg/dL 08/20/2022 3:33 AM CDT [facility] Comment: ATP III Classification of Triglycerides: ?<150 mg/dL: ??Normal ? 150 - 199 mg/dL: ??Borderline High ? 200 - 400 mg/dL: ??High ?>500 mg/dL: ??Very High Blood BLOOD SPECIMEN / Unknown Lab Venipuncture / Unknown 08/20/2022 2:50 AM CDT 08/20/2022 3:00 AM CDT Héctor Silva MD LAB - CHEMISTRY PATRICIA CASIANO Performing Organization Address [facility]/ZIP Co de Phone Number [address] [address], [place] [phone] * TSH REFLEX FREE T4 (08/20/2022 2:50 AM CDT) TSH 4.654 0.350 - 4.940 uIU/mL 08/20/2022 3:48 AM CDT [facility] Blood BLOOD SPECIMEN / Unknown Lab Venipuncture / Unknown 08/20/2022 2:50 AM CDT 08/20/2022 3:00 AM CDT Héctor Silva MD LAB - CHEMISTRY PATRICIA CASIANO Performing Organization Address [facility]/ZIP Co de Phone Number [address] [address], [place] [phone] * (ABNORMAL) BASIC METABOLIC PANEL (CALCIUM TOTAL) (08/19/2022 9:00 PM CDT) BUN 71(H) 7 - 26 mg/dL 08/19/2022 9:30 PM CDT [facility] Creatinine 4.59(H) 0.56 - 0.96 mg/dL 08/19/2022 9:30 PM CDT [facility] Sodium 127(L) 136 - 145 mmol/L 08/19/2022 9:30 PM CDT [facility] Potassium 4.1 3.5 - 4.5 mmol/L 08/19/2022 9:30 PM CDT [facility] Chloride 98 98 - 107 mmol/L 08/19/2022 9:30 PM T [facility] CO2 16(L) 22 - 29 mmol/L 08/19/2022 9:30 PM T [facility] Glucose 131(H) 70 - 115 mg/dL 08/19/2022 9:30 PM T [facility] Calcium 8.4 8.4 - 10.2 mg/dL 08/19/2022 9:30 PM T [facility] Anion Gap 17 8 - 18 08/19/2022 9:30 PM T [facility] BUN/Creatinine Ratio 15 7 - 23 08/19/2022 9:30 PM T [facility] Osmolality Calculated 287 270 - 300 mOsm/kg 08/19/2022 9:30 PM [facility] eGFR by CKD-EPI 9(L) >=90 mL/min/1.7 3 m2 08/19/2022 9:30 PM T [facility] Blood BLOOD SPECIMEN / Unknown Lab Venipuncture / Unknown 08/19/2022 9:00 PM CDT 08/19/2022 9:05 PM CDT Aroldo WOOD LAB - CHEMISTRY OR DERABLES [address] [address], [facility] [phone] * SODIUM URINE RANDOM (08/19/2022 1:00 PM CDT) Sodium Urine <20 Not Established mmol/L 08/19/2022 1:41 PM CDT [facility] Urine URINE SPECIMEN OBTAINED BY CLEAN CATCH PROCEDURE / Unknown Collection / Unknown 08/19/2022 1:00 PM CDT 08/19/2022 1:04 PM CDT Héctor Silva MD LAB - URINE CHEMISTR Y ORDERABLES Performing Organization Address City/[facility]/ZIP Co de Phone Number [address] [address], [place] [phone] * OSMOLALITY URINE (08/19/2022 1:00 PM CDT) Osmolality Urine 288 50 - 1,200 mOsm/kg 08/19/2022 2:11 PM CDT [facility] Urine URINE SPECIMEN OBTAINED BY CLEAN CATCH PROCEDURE / Unknown Collection / Unknown 08/19/2022 1:00 PM CDT 08/19/2022 1:04 PM CDT Héctor Silva MD LAB - URINE CHEMISTR Y ORDERABLES Performing Organization Address [facility]/ZIP Co de Phone Number [facility] [address] [place] [address], [facility] [phone] * (ABNORMAL) PROTEIN CREATININE RATIO URINE RANDOM PNL (08/19/2022 1:00 PM CDT) Pathologist [facility] Protein Urine 163 Not Established mg/dL 08/19/2022 1:41 PM CDT [facility] Creatinine Urine 96 Not Established mg/dL 08/19/2022 1:41 PM CDT [facility] Protein/Creati nine Ratio Urine 1.70(H) <0.10 08/19/2022 1:41 PM CDT [facility] Urine URINE SPECIMEN OBTAINED BY CLEAN CATCH PROCEDURE / Unknown Collection / Unknown 08/19/2022 1:00 PM CDT 08/19/2022 1:04 PM CDT Héctor Silva MD LAB - URINE CHEMISTR Y ORDERABLES Performing Organization Address City/[facility]/ZIP Co de Phone Number [facility] [address] [place] [address], [place] [phone] * (ABNORMAL) URINALYSIS REFLEX TO MICROSCOPIC NO CULTURE (08/19/2022 1:00 PM CDT) Color UA Yellow Straw, Yellow 08/22/2022 3:46 PM CDT [facility] Clarity UA t Cloudy(A) Clear 08/22/2022 3:46 PM CDT [facility] Specific Floris UA 1.011 1.005 - 1.030 08/22/2022 3:46 PM [facility] pH UA 5.0 5.0 - 8.0 pH 08/22/2022 3:46 PM [facility] Protein UA 2+(A) Negative 08/22/2022 3:46 PM [facility] Glucose UA Negative Negative 08/22/2022 3:46 PM [facility] Ketone UA Negative Negative 08/22/2022 3:46 PM [facility] Bilirubin UA Negative Negative 08/22/2022 3:46 PM [facility] Blood UA Negative Negative 08/22/2022 3:46 PM [facility] Nitrite UA Negative Negative 08/22/2022 3:46 PM [facility] Leukocyte Esterase 2+(A) Negative 08/22/2022 3:46 PM [facility] Urobilinogen UA Negative Negative mg/dL 08/22/2022 3:46 PM [facility] RBC UA 0-2 None Seen, 0-2, 3-5 /HPF 08/22/2022 3:46 PM [facility] Comment:This is an appended report. These results have been appended to a previously final verified report. WBC UA 11-20(A) None Seen, 0-5 /HPF 08/22/2022 3:46 PM [facility] Comment:This is an appended report. These results have been appended to a previously final verified report. Bacteria UA Trace(A) None /HPF 08/22/2022 3:46 PM [facility] Comment:This is an appended report. These results have been appended to a previously final verified report. Squamous Epithelial Cells UA 0-2 None Seen, 0-2, 3-5 /HPF 08/22/2022 3:46 PM [facility] Comment:This is an appended report. These results have been appended to a previously final verified report. Urine URINE SPECIMEN OBTAINED BY CLEAN CATCH PROCEDURE / Unknown Collection / Unknown 08/19/2022 1:00 PM CDT 08/19/2022 1:04 PM CDT [facility] - 08/22/2022 3:46 PM CDT Héctor Silva MD LAB - URINALYSIS ORD ERABLES Performing Organization Address [facility]/ZIP Co de Phone Number [facility] [address] [place] [address], [facility] [phone] * (ABNORMAL) PROTEIN ELECTROPHORESIS URINE TIMED (08/19/2022 1:00 PM CDT) Interpretation Urine PE See Comment Normal Pattern 08/26/2022 10:48 PM CDT [facility] Comment: Urine protein electrophoresis shows bands corresponding to albumin and transferrin along with small amounts of other nonspecific proteinuria. ?? No monoclonal immunoglobulins detected. Terry Burnham PhD, [facility] Clinical Wrapper Sizer artisan plasterer Protein Urine 146 Not Established mg/dL 08/26/2022 10:48 PM CDT [facility] Volume Timed Urine 489 mL 2021 10:48 PM CDT [facility] Collection Time Timed Urine 8 Hrs 08/26/2022 10:48 PM T [facility] Protein 24 Hour Urine 714(H) 77 - 197 mg/24 hrs 08/26/2022 10:48 PM T [facility] Protein Total Timed Urine 714 Not established for collection periods other than 24 Hrs. mg/X hrs 08/26/2022 10:48 PM T [facility] Urine TIMED URINE SPECIMEN / Unknown Timed Urine Volume Measurement / Unknown 08/19/2022 1:00 PM CDT 08/19/2022 1:04 PM CDT Héctor Silva MD LAB - URINE CHEMISTR Y ORDERABLES [facility] [address] [place] [address], [facility] [phone] * (ABNORMAL) PHOSPHORUS BLOOD (08/19/2022 10:56 AM CDT) Phosphorus 5.7(H) 2.9 - 5.1 mg/dL 08/19/2022 11:43 AM CDT [facility] Blood BLOOD SPECIMEN / Unknown Venipuncture / Unknown 08/19/2022 10:56 AM CDT 08/19/2022 11:12 AM CDT Héctor Silva MD LAB - CHEMISTRY PATRICIA CASIANO Performing Organization Address City/[facility]/ZIP Co de Phone Number [address] [address], [facility] [phone] * MAGNESIUM BLOOD (08/19/2022 10:56 AM CDT) Magnesium 2.1 1.6 - 2.6 mg/dL 08/19/2022 11:43 AM CDT [facility] Blood BLOOD SPECIMEN / Unknown Venipuncture / Unknown 08/19/2022 10:56 AM CDT 08/19/2022 11:12 AM CDT Héctor Silva MD LAB - CHEMISTRY PATRICIA CASIANO Performing Organization Address [facility] Co de Phone Number [address] [address], [facility] [phone] * PT-INR [facility] (08/19/2022 10:56 AM CDT) PT 13.1 12.1 - 14.8 Seconds 08/19/2022 11:31 AM CDT [facility] INR 1.0 See Comment 08/19/2022 11:31 AM CDT [facility] Comment:The suggested therap eutic range for standard coumadin (warfarin) therapy is an INR of 2.0-3.0. For high-risk patients (Mechanical Mitral Valve Prosthesis, etc.), the suggested prophylactic therapeutic range is an INR of 2.5-3.5. Blood BLOOD SPECIMEN / Unknown Venipuncture / Unknown 08/19/2022 10:56 AM CDT 08/19/2022 11:12 AM CDT Héctor Silva MD LAB - COAGULATION OR DERABLES Performing Organization Address [facility]/ZIP Co de Phone Number [address] [address], [place] [phone] * (ABNORMAL) BASIC METABOLIC PANEL (CALCIUM TOTAL) (08/19/2022 10:56 AM CDT) BUN 66(H) 7 - 26 mg/dL 08/19/2022 11:43 AM [facility] Creatinine 4.65(H) 0.56 - 0.96 mg/dL 08/19/2022 11:43 AM [facility] Sodium 127(L) 136 - 145 mmol/L 08/19/2022 11:43 AM [facility] Potassium 4.0 3.5 - 4.5 mmol/L 08/19/2022 11:43 AM [facility] Chloride 99 98 - 107 mmol/L 08/19/2022 11:43 AM [facility] CO2 17(L) 22 - 29 mmol/L 08/19/2022 11:43 AM [facility] Glucose 100 70 - 115 mg/dL 08/19/2022 11:43 AM [facility] Calcium 8.6 8.4 - 10.2 mg/dL 08/19/2022 11:43 AM [facility] Anion Gap 15 8 - 18 08/19/2022 11:43 AM [facility] BUN/Creatinine Ratio 14 7 - 23 08/19/2022 11:43 AM [facility] Osmolality Calculated 283 270 - 300 mOsm/kg 08/19/2022 11:43 AM [facility] eGFR by CKD-EPI 9(L) >=90 mL/min/1.7 3 m2 08/19/2022 11:43 AM [facility] Blood BLOOD SPECIMEN / Unknown Venipuncture / Unknown 08/19/2022 10:56 AM CDT 08/19/2022 11:12 AM T Héctor Silva MD LAB - CHEMISTRY PATRICIA CASIANO [facility] Organization Address City/State/ZIP Co de Phone Number [address] [address], [facility] [phone] * (ABNORMAL) CBC W/O DIFFERENTIAL (08/19/2022 10:56 AM CDT) WBC 4.6 3.5 - 10.5 10? 3 /uL 08/19/2022 11:35 AM [facility] RBC 2.65(L) 3.80 - 5.20 10? 6 /uL 08/19/2022 11:35 AM [facility] Hemoglobin 7.6(L) 12.0 - 15.6 g/dL 08/19/2022 11:35 AM [facility] Hematocrit 22.1(L) 35.0 - 45.0 % 08/19/2022 11:35 AM [facility] MCV 83.4 80.7 - 98.3 fL 08/19/2022 11:35 AM [facility] MCH 28.7 26.7 - 34.0 pg 08/19/2022 11:35 AM [facility] MCHC 34.4 30.8 - 35.9 g/dL 08/19/2022 11:35 AM [facility] Platelet Count 159 150 - 400 10? 3 /uL 08/19/2022 11:35 AM [facility] RDW-SD 40.7 36.0 - 50.0 fL 08/19/2022 11:35 AM [facility] RDW-CV 13.5 11.2 - 14.8 % 08/19/2022 11:35 AM [facility] MPV 9.5 9.4 - 12.9 fL 08/19/2022 11:35 AM [facility] nRBC Absolute 0.00 0 10? 3 /uL 08/19/2022 11:35 AM [facility] nRBC Auto 0.0 0 /100 WBC 08/19/2022 11:35 AM [facility] Blood BLOOD SPECIMEN / Unknown Venipuncture / Unknown 08/19/2022 10:56 AM CDT 08/19/2022 11:12 AM CDT Héctor Silva MD LAB - HEMATOLOGY ORD ERABLES [facility] [address] [place] [address], [facility] [phone] * IMMUNOFIXATION BLOOD (08/19/2022 10:56 AM CDT) Immunofixation Serum Normal Pattern Normal Pattern 08/26/2022 10:48 PM CDT [facility] Comment: No monoclonal immunoglobulin detected by serum immunosubtraction. Terry Burnham PhD, [facility] Clinical Wrapper Sizer artisan plasterer *The electrophoresis pattern and the interpretation have been reviewed and verified by the teaching physician. Blood BLOOD SPECIMEN / Unknown Venipuncture / Unknown 08/19/2022 10:56 AM CDT 08/19/2022 11:02 AM CDT Héctor Silva MD LAB - CHEMISTRY PATRICIA CASIANO [facility] Organization Address City/State/ZIP Co de Phone Number [address] [address], [facility] [phone] * (ABNORMAL) PROTEIN ELECTROPHORESIS BLOOD (08/19/2022 10:56 AM CDT) Interpretation Serum PE Normal Pattern Normal Pattern 08/26/2022 10:48 PM CDT [facility] Comment: Serum capillary electrophoresis shows characteristic [...] - 8.3 g/dL 08/26/2022 10:48 PM CDT [facility] Albumin 3.1(L) 3.3 - 5.6 g/dL 08/26/2022 10:48 PM CDT [facility] Alpha-1 Globulins 0.3 0.2 - 0.4 g/dL 08/26/2022 10:48 PM CDT [facility] Alpha-2 Globulins 0.7 0.5 - 1.0 g/dL 08/26/2022 10:48 PM CDT [facility] Beta Globulins 0.5(L) 0.6 - 1.1 g/dL 08/26/2022 10:48 PM CDT [facility] Gamma Globulins 0.3(L) 0.6 - 1.6 g/dL 08/26/2022 10:48 PM CDT [facility] Blood BLOOD SPECIMEN / Unknown Venipuncture / Unknown 08/19/2022 10:56 AM CDT 08/19/2022 11:02 AM CDT Héctor Silva MD LAB - CHEMISTRY PATRICIA CASIANO Performing Organization Address City/[facility]/ZIP Co de Phone Number [facility] [address] [place] [address], [facility] [phone] * TRANSFUSE RED BLOOD CELL LEUKOREDUCED UNIT(S) (08/19/2022 2:37 AM CDT) Aroldo Rivera APRN-BOX SHOOK PATCHER NURSING - BLOOD MD OD TRANSFUSION * TRANSFUSE RED BLOOD CELL LEUKOREDUCED UNIT(S), 1 Units (08/19/2022 2:37 AM CDT) Aroldo Rivera APRN-BOX SHOOK PATCHER NURSING - BLOOD MD OD TRANSFUSION * PREPARE (CROSSMATCH) RBC UNIT(S), 1 Units (08/18/2022 10:48 PM CDT) [facility] Unit Description AS3 LR PRBC [facility] Unit ABO A [facility] Unit Rh NEG [facility] Product Number R14 [facility] Unit Donor # [id number] [facility] Unit Status transfused [facility] Product Code [id number] [facility] Blood Type Barcode 0600 [facility] Expiration Date [id number] S BLOOD BANK LAB Blood Bank BLOOD SPECIMEN / Unknown 08/18/2022 3:44 PM CDT Aroldo Rivera APRN-BOX SHOOK PATCHER LAB - BLOOD BANK O RDERABLES Performing Organization Address [facility]/ZIP Co de Phone Number [facility] [address] [place] [address], [employer] [phone] * BLOOD TYPE VERIFICATION (08/18/2022 7:52 PM CDT) ABO Rh A NEG 08/18/2022 9:1 4 PM CDT [facility] Blood Bank BLOOD SPECIMEN / Unknown Lab Venipuncture / Unknown 08/18/2022 7:52 PM CDT 08/18/2022 7:58 PM CDT Katherine Lai MD LAB - BLOOD BANK ORD ERABLES [facility] [address] [place] [address], [place] [phone] * TYPE + SCREEN PANEL (08/18/2022 2:30 PM CDT) Antibody Screen NEG 4:28 PM CDT [facility] ABO Rh A NEG 08/18/2022 4:28 PM CDT [facility] Blood Bank BLOOD SPECIMEN / Unknown Lab Venipuncture / Unknown 08/18/2022 2:30 PM CDT 08/18/2022 3:44 PM CDT Aroldo WOOD LAB - BLOOD BANK O RDERABLES Performing Organization Address City/[facility]/ZIP Co de Phone Number [facility] [address] [place] [address], [place] [phone] * (ABNORMAL) PHOSPHORUS BLOOD (08/18/2022 10:11 AM CDT) Phosphorus 5.3(H) 2.9 - 5.1 mg/dL 08/18/2022 10:55 AM CDT [facility] Blood BLOOD SPECIMEN / Unknown Lab Venipuncture / Unknown 08/18/2022 10:11 AM CDT 08/18/2022 10:29 AM CDT Héctor Silva MD LAB - CHEMISTRY PATRICIA CASIANO [facility] [address] [place] [address], [place] [phone] * MAGNESIUM BLOOD (08/18/2022 10:11 AM CDT) Pathologist [facility] Magnesium 2.1 1.6 - 2.6 mg/dL 08/18/2022 10:55 AM CDT [facility] Blood BLOOD SPECIMEN / Unknown Lab Venipuncture / Unknown 08/18/2022 10:11 AM CDT 08/18/2022 10:29 AM CDT Héctor Silva MD LAB - CHEMISTRY ORDE STEPHENIE Performing Organization Address City/[facility]/ZIP Co de Phone Number [facility] [address] [place] [address], [facility] [phone] * PT-INR [facility] (08/18/2022 10:11 AM CDT) Pathologist [facility] PT 13.1 12.1 - 14.8 Seconds 08/18/2022 10:52 AM CDT [facility] INR 1.0 See Comment 08/18/2022 10:52 AM T [facility] Comment:The suggested therap eutic range for standard coumadin (warfarin) therapy is an INR of 2.0-3.0. For high-risk patients (Mechanical Mitral Valve Prosthesis, etc.), the suggested prophylactic therapeutic range is an INR of 2.5-3.5. Blood BLOOD SPECIMEN / Unknown Lab Venipuncture / Unknown 08/18/2022 10:11 AM CDT 08/18/2022 10:29 AM CDT Héctor Silva MD LAB - COAGULATION OR DERABLES [facility] [address] [place] [address], [facility] [phone] * (ABNORMAL) BASIC METABOLIC PANEL (CALCIUM TOTAL) (08/18/2022 10:11 AM CDT) Pathologist [facility] BUN 63(H) 7 - 26 mg/dL 08/18/2022 10:55 AM CDT [facility] Creatinine 4.42(H) 0.56 - 0.96 mg/dL 08/18/2022 10:55 AM [facility] Sodium 132(L) 136 - 145 mmol/L 08/18/2022 10:55 AM [facility] Potassium 3.8 3.5 - 4.5 mmol/L 08/18/2022 10:55 AM [facility] Chloride 102 98 - 107 mmol/L 08/18/2022 10:55 AM [facility] CO2 19(L) 22 - 29 mmol/L 08/18/2022 10:55 AM [facility] Glucose 109 70 - 115 mg/dL 08/18/2022 10:55 AM [facility] Calcium 8.3(L) 8.4 - 10.2 mg/dL 08/18/2022 10:55 AM [facility] Anion Gap 15 8 - 18 08/18/2022 10:55 AM [facility] BUN/Creatinine Ratio 14 7 - 23 08/18/2022 10:55 AM [facility] Osmolality Calculated 293 270 - 300 mOsm/kg 08/18/2022 10:55 AM [facility] eGFR by CKD-EPI 10(L) >=90 mL/min/1.7 3 m2 08/18/2022 10:55 AM [facility] Blood BLOOD SPECIMEN / Unknown Lab Venipuncture / Unknown 08/18/2022 10:11 AM CDT 08/18/2022 10:29 AM T Héctor Silva MD LAB - CHEMISTRY PATRICIA CASIANO [facility] Organization Address City/State/[facility] Co de Phone Number [facility] [address] [place] [phone], [facility] [phone] * (ABNORMAL) CBC W/O DIFFERENTIAL (08/18/2022 10:11 AM CDT) WBC 4.2 3.5 - 10.5 10? 3 /uL 08/18/2022 10:33 AM [facility] RBC 2.25(L) 3.80 - 5.20 10? 6 /uL 08/18/2022 10:33 AM [facility] Hemoglobin 6.2(L) 12.0 - 15.6 g/dL 08/18/2022 10:33 AM [facility] Hematocrit 19.3(L) 35.0 - 45.0 % 08/18/2022 10:33 AM [facility] MCV 85.8 80.7 - 98.3 fL 08/18/2022 10:33 AM [facility] MCH 27.6 26.7 - 34.0 pg 08/18/2022 10:33 AM [facility] MCHC 32.1 30.8 - 35.9 g/dL 08/18/2022 10:33 AM [facility] Platelet Count 160 150 - 400 10? 3 /uL 08/18/2022 10:33 AM [facility] RDW-SD 42.2 36.0 - 50.0 fL 08/18/2022 10:33 AM [facility] RDW-CV 13.5 11.2 - 14.8 % 08/18/2022 10:33 AM [facility] MPV 9.6 9.4 - 12.9 fL 08/18/2022 10:33 AM [facility] nRBC Absolute 0.00 0 10? 3 /uL 08/18/2022 10:33 AM [facility] nRBC Auto 0.0 0 /100 WBC 08/18/2022 10:33 AM [facility] Blood BLOOD SPECIMEN / Unknown Lab Venipuncture / Unknown 08/18/2022 10:11 AM CDT 08/18/2022 10:29 AM CDT Héctor Silva MD LAB - HEMATOLOGY ORD ERABLES [facility] [address] [place] [phone], [facility] [phone] * (ABNORMAL) PTH INTACT W/O CALCIUM (08/17/2022 7:46 AM CDT) PTH Intact 346.2(H) 8.0 - 77.0 pg/mL 08/17/2022 10:13 AM [facility] Blood BLOOD SPECIMEN / Unknown Lab Venipuncture / Unknown 08/17/2022 7:46 AM CDT 08/17/2022 9:38 AM CDT Héctor Silva MD LAB - CHEMISTRY PATRICIA CASIANO Performing Organization Address City/[facility]/ZIP Co de Phone Number [address] [phone], [facility] [phone] * FERRITIN (08/17/2022 7:46 AM CDT) Pathologist [facility] Ferritin 180 13 - 204 ng/mL 08/17/2022 10:33 AM CDT [facility] Blood BLOOD SPECIMEN / Unknown Lab Venipuncture / Unknown 08/17/2022 7:46 AM CDT 08/17/2022 9:37 AM CDT Héctor Silva MD LAB - CHEMISTRY PATRICIA CASIANO Performing Organization Address City/[facility]/ZIP Co de Phone Number [address] [phone], [facility] [phone] * (ABNORMAL) CBC W/O DIFFERENTIAL (08/17/2022 4:26 AM CDT) WBC 6.3 3.5 - 10.5 10? 3 /uL 08/17/2022 4:40 AM CDT [facility] RBC 2.57(L) 3.80 - 5.20 10? 6 /uL 08/17/2022 4:40 AM CDT [facility] Hemoglobin 7.1(L) 12.0 - 15.6 g/dL 08/17/2022 4:40 AM T [facility] Hematocrit 20.8(L) 35.0 - 45.0 % 08/17/2022 4:40 AM T [facility] MCV 80.9 80.7 - 98.3 fL 08/17/2022 4:40 AM CDT [facility] MCH 27.6 26.7 - 34.0 pg 08/17/2022 4:40 AM CDT [facility] MCHC 34.1 30.8 - 35.9 g/dL 08/17/2022 4:40 AM [facility] Platelet Count 197 150 - 400 10? 3 /uL 08/17/2022 4:40 AM [facility] RDW-SD 38.6 36.0 - 50.0 fL 08/17/2022 4:40 AM [facility] RDW-CV 13.2 11.2 - 14.8 % 08/17/2022 4:40 AM [facility] MPV 9.2(L) 9.4 - 12.9 fL 08/17/2022 4:40 AM [facility] nRBC Absolute 0.00 0 10? 3 /uL 08/17/2022 4:40 AM [facility] nRBC Auto 0.0 0 /100 WBC 08/17/2022 4:40 AM [facility] Blood BLOOD SPECIMEN / Unknown 08/17/2022 4:26 AM CDT 08/17/2022 4:27 AM CDT Héctor Silva MD LAB - HEMATOLOGY ORD ERABLES Performing Organization Address [facility] Co de Phone Number [facility] [address] [place] [address] [phone] * PT-INR [facility] (08/17/2022 4:20 AM CDT) PT 12.9 12.1 - 14.8 Seconds 08/17/2022 4:48 AM [facility] INR 1.0 See Comment 08/17/2022 4:48 AM [facility] Comment:The suggested therap eutic range for standard coumadin (warfarin) therapy is an INR of 2.0-3.0. For high-risk patients (Mechanical Mitral Valve Prosthesis, etc.), the suggested prophylactic therapeutic range is an INR of 2.5-3.5. Blood BLOOD SPECIMEN / Unknown 08/17/2022 4:20 AM CDT 08/17/2022 4:23 AM CDT Héctor Silva MD LAB - COAGULATION OR DERABLES Performing Organization Address [facility]/ZIP Co de Phone Number [address] [address], [place] [phone] * (ABNORMAL) ALBUMIN BLOOD (08/17/2022 4:05 AM CDT) Albumin 2.8(L) 3.4 - 5.0 g/dL 08/17/2022 2:34 PM CDT [facility] Blood BLOOD SPECIMEN / Unknown Lab Venipuncture / Unknown 08/17/2022 4:05 AM CDT 08/17/2022 4:20 AM CDT [facility] LAB - CHEMISTRY OR DERABLES Performing Organization Address [facility]/ZIP Co de Phone Number [address] [address], [place] [phone] * (ABNORMAL) PROTEIN TOTAL BLOOD (08/17/2022 4:05 AM CDT) Protein Total 5.1(L) 6.0 - 8.3 g/dL 08/17/2022 2:34 PM CDT [facility] Blood BLOOD SPECIMEN / Unknown Lab Venipuncture / Unknown 08/17/2022 4:05 AM CDT 08/17/2022 4:20 AM CDT Héctor Silva MD LAB - CHEMISTRY PATRICIA CASIANO Performing Organization Address City/[facility]/ZIP Co de Phone Number [address] [address], [place] [phone] * PHOSPHORUS BLOOD (08/17/2022 4:05 AM CDT) Phosphorus 4.4 2.9 - 5.1 mg/dL 08/17/2022 4:48 AM CDT [facility] Blood BLOOD SPECIMEN / Unknown Lab Venipuncture / Unknown 08/17/2022 4:05 AM CDT 08/17/2022 4:20 AM CDT Héctor Silva MD LAB - CHEMISTRY PATRICIA CASIANO Performing Organization Address City/[facility]/ZIP Co de Phone Number [facility] [address] [place] [address], [place] [phone] * MAGNESIUM BLOOD (08/17/2022 4:05 AM CDT) Magnesium 2.1 1.6 - 2.6 mg/dL 08/17/2022 4:48 AM [facility] Blood BLOOD SPECIMEN / Unknown Lab Venipuncture / Unknown 08/17/2022 4:05 AM CDT 08/17/2022 4:20 AM CDT Héctor Silva MD LAB - CHEMISTRY PATRICIA CASIANO Performing Organization Address [facility]/ZIP Co de Phone Number [facility] [address] [place] [address], [place] [phone] * (ABNORMAL) BASIC METABOLIC PANEL (CALCIUM TOTAL) (08/17/2022 4:05 AM CDT) BUN 58(H) 7 - 26 mg/dL 08/17/2022 4:48 AM [facility] Creatinine 4.22(H) 0.56 - 0.96 mg/dL 08/17/2022 4:48 AM [facility] Sodium 134(L) 136 - 145 mmol/L 08/17/2022 4:48 AM [facility] Potassium 3.0(L) 3.5 - 4.5 mmol/L 08/17/2022 4:48 AM [facility] Chloride 105 98 - 107 mmol/L 08/17/2022 4:48 AM [facility] CO2 16(L) 22 - 29 mmol/L 08/17/2022 4:48 AM [facility] Glucose 105 70 - 115 mg/dL 08/17/2022 4:48 AM [facility] Calcium 8.7 8.4 - 10.2 mg/dL 08/17/2022 4:48 AM [facility] Anion Gap 16 8 - 18 08/17/2022 4:48 AM CDT [facility] BUN/Creatinine Ratio 14 7 - 23 08/17/2022 4:48 AM T [facility] Osmolality Calculated 295 270 - 300 mOsm/kg 08/17/2022 4:48 AM T [facility] eGFR by CKD-EPI 10(L) >=90 mL/min/1.7 3 m2 08/17/2022 4:48 AM T [facility] Blood BLOOD SPECIMEN / Unknown Lab Venipuncture / Unknown 08/17/2022 4:05 AM CDT 08/17/2022 4:20 AM CDT Héctor Silva MD LAB - CHEMISTRY ORDE RABLES Performing Organization Address City/[facility]/ZIP Co de Phone Number [address] [address], [facility] [phone] * LYTES (NA K) URINE RANDOM PANEL (08/16/2022 9:42 AM CDT) Sodium Urine 117 Not Established mmol/L 08/16/2022 10:08 AM T [facility] Potassium Urine 49.7 Not Established mmol/L 08/16/2022 10:08 AM T [facility] Urine URINE SPECIMEN OBTAINED BY CLEAN CATCH PROCEDURE / Unknown Collection / Unknown 08/16/2022 9:42 AM CDT 08/16/2022 9:47 AM CDT Héctor Silva MD LAB - URINE CHEMISTR Y ORDERABLES Performing Organization Address City/[facility]/ZIP Co de Phone Number [address] [address], [place] [phone] * (ABNORMAL) URINALYSIS W/MICROSCOPIC NO CULTURE (08/16/2022 9:42 AM CDT) Color UA Yellow Straw, Yellow 08/16/2022 9:57 AM T [facility] Clarity UA t Cloudy(A) Clear 08/16/2022 9:57 AM T [facility] Specific Floris UA 1.014 1.005 - 1.030 08/16/2022 9:57 AM [facility] pH UA 6.0 5.0 - 8.0 pH 08/16/2022 9:57 AM [facility] Protein UA 3+(A) Negative 08/16/2022 9:57 AM [facility] Glucose UA Negative Negative 08/16/2022 9:57 AM [facility] Ketone UA Negative Negative 08/16/2022 9:57 AM [facility] Bilirubin UA Negative Negative 08/16/2022 9:57 AM [facility] Blood UA Negative Negative 08/16/2022 9:57 AM [facility] Nitrite UA Negative Negative 08/16/2022 9:57 AM [facility] Leukocyte Esterase Negative Negative 08/16/2022 9:57 AM [facility] Urobilinogen UA Negative Negative mg/dL 08/16/2022 9:57 AM [facility] RBC UA 0-2 None Seen, 0-2, 3-5 /HPF 08/16/2022 9:57 AM [facility] WBC UA 0-5 None Seen, 0-5 /HPF 08/16/2022 9:57 AM [facility] Bacteria UA Trace(A) None /HPF 08/16/2022 9:57 AM [facility] Squamous Epithelial Cells UA None Seen None Seen, 0-2, 3-5 /HPF 08/16/2022 9:57 AM [facility] Hyaline Casts UA 0-2 None Seen, 0-2 /LPF 08/16/2022 9:57 AM [facility] Urine URINE SPECIMEN OBTAINED BY SINGLE CATHETERIZATION OF URINARY BLADDER / Unknown Collection / Unknown 08/16/2022 9:42 AM CDT 08/16/2022 9:47 AM [facility] - 08/16/2022 9:57 AM CDT Héctor Silva MD LAB - URINALYSIS ORD ERABLES [facility] [address] [place] [address], [place] [phone] * IRON + TRANSFERRIN PANEL (08/16/2022 9:36 AM CDT) Iron 77 40 - 150 ug/dL 08/16/2022 11:45 AM CDT [facility] Transferrin 198 174 - 382 mg/dL 08/16/2022 11:45 AM CDT [facility] Transferrin Saturation % 31 16 - 50 % 08/16/2022 11:45 AM CDT [facility] TIBC Calculated 248 240 - 450 ug/dL 08/16/2022 11:45 AM CDT [facility] Blood BLOOD SPECIMEN / Unknown Venipuncture / Unknown 08/16/2022 9:36 AM CDT 08/16/2022 9:46 AM CDT Héctor Silva MD LAB - CHEMISTRY PATRICIA CASIANO [facility] [address] [place] [address], [facility] [phone] * ECHO COMPLETE W BUBBLE STUDY (08/16/2022 9:30 AM CDT) Anatomical Region Laterality Modality Chest Echo 08/16/2022 8:56 AM CDT Narrative Procedure Note Catarina Dobbins MD - 08/16/2022 Héctor Silva MD ECHOCARDIOGRAPHY RAD IANT * XR CHEST 1VW PORTABLE (08/16/2022 8:37 AM CDT) Anatomical Region Laterality Modality Chest Radiographic Marychuy ging 08/16/2022 9:53 AM CDT Narrative 08/16/2022 9:54 AM CDT EXAMINATION: XR CHEST 1VW PORTABLE HISTORY: L98.9: Disorder of skin and subcutaneous tissue 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 FINDINGS/IMPRESSION: Lines: *None. Minimal left basilar atelectasis is present. The right lung is clear. Blunting of the left costophrenic angle may represent a tiny pleural effusion. No pneumothorax is identified. Cardiac size is normal. The superior mediastinal contours are within normal limits. No acute osseous abnormality is identified. 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 FINDINGS/IMPRESSION: Lines: *None. Minimal left basilar atelectasis is present. The right lung is clear. Blunting of the left costophrenic angle may represent a tiny pleural effusion. No pneumothorax is identified. Cardiac size is normal. The superior mediastinal contours are within normal limits. No acute osseous abnormality is identified. > Interpreting Provider: MIKEL REYEZ MD on 08/16/2022 9:54 AM Héctor Silva MD DIAGNOSTIC IMAGING O RDERABLES * PT-INR [facility] (08/16/2022 12:44 AM CDT) PT 13.2 12.1 - 14.8 Seconds 08/16/2022 1:15 AM CDT [facility] INR 1.0 See Comment 08/16/2022 1:15 AM CDT [facility] Comment:The suggested therap eutic range for standard coumadin (warfarin) therapy is an INR of 2.0-3.0. For high-risk patients (Mechanical Mitral Valve Prosthesis, etc.), the suggested prophylactic therapeutic range is an INR of 2.5-3.5. Blood BLOOD SPECIMEN / Unknown Venipuncture / Unknown 08/16/2022 12:44 AM CDT 08/16/2022 12:53 AM CDT Héctor Silva MD LAB - COAGULATION OR DERABLES [facility] [address] [place] [address], [facility] [phone] * (ABNORMAL) BASIC METABOLIC PANEL (CALCIUM TOTAL) (08/16/2022 12:44 AM CDT) BUN 56(H) 7 - 26 mg/dL 08/16/2022 1:19 AM [facility] Creatinine 4.27(H) 0.56 - 0.96 mg/dL 08/16/2022 1:19 AM [facility] Sodium 139 136 - 145 mmol/L 08/16/2022 1:19 AM [facility] Potassium 3.1(L) 3.5 - 4.5 mmol/L 08/16/2022 1:19 AM [facility] Chloride 106 98 - 107 mmol/L 08/16/2022 1:19 AM [facility] CO2 18(L) 22 - 29 mmol/L 08/16/2022 1:19 AM [facility] Glucose 105 70 - 115 mg/dL 08/16/2022 1:19 AM [facility] Calcium 8.5 8.4 - 10.2 mg/dL 08/16/2022 1:19 AM [facility] Anion Gap 18 8 - 18 08/16/2022 1:19 AM [facility] BUN/Creatinine Ratio 13 7 - 23 08/16/2022 1:19 AM [facility] Osmolality Calculated 304(H) 270 - 300 mOsm/kg 08/16/2022 1:19 AM [facility] eGFR by CKD-EPI 10(L) >=90 mL/min/1.7 3 m2 08/16/2022 1:19 AM [facility] Blood BLOOD SPECIMEN / Unknown Venipuncture / Unknown 08/16/2022 12:44 AM CDT 08/16/2022 12:53 AM T Héctor Silva MD LAB - CHEMISTRY PATRICIA CASIANO [facility] Organization Address City/State/ZIP Co de Phone Number [facility] [address] [place] [address], [facility] [phone] * (ABNORMAL) CBC W/O DIFFERENTIAL (08/16/2022 12:44 AM CDT) WBC 6.8 3.5 - 10.5 10? 3 /uL 08/16/2022 1:04 AM [facility] RBC 2.50(L) 3.80 - 5.20 10? 6 /uL 08/16/2022 1:04 AM [facility] Hemoglobin 7.0(L) 12.0 - 15.6 g/dL 08/16/2022 1:04 AM [facility] Hematocrit 21.0(L) 35.0 - 45.0 % 08/16/2022 1:04 AM [facility] MCV 84.0 80.7 - 98.3 fL 08/16/2022 1:04 AM [facility] MCH 28.0 26.7 - 34.0 pg 08/16/2022 1:04 AM [facility] MCHC 33.3 30.8 - 35.9 g/dL 08/16/2022 1:04 AM [facility] Platelet Count 196 150 - 400 10? 3 /uL 08/16/2022 1:04 AM [facility] RDW-SD 41.1 36.0 - 50.0 fL 08/16/2022 1:04 AM [facility] RDW-CV 13.3 11.2 - 14.8 % 08/16/2022 1:04 AM [facility] MPV 9.3(L) 9.4 - 12.9 fL 08/16/2022 1:04 AM [facility] nRBC Absolute 0.00 0 10? 3 /uL 08/16/2022 1:04 AM [facility] nRBC Auto 0.0 0 /100 WBC 08/16/2022 1:04 AM [facility] Blood BLOOD SPECIMEN / Unknown Venipuncture / Unknown 08/16/2022 12:44 AM CDT 08/16/2022 12:51 AM CDT Héctor Silva MD LAB - HEMATOLOGY ORD ERABLES [facility] [address] [place] [phone], [facility] [phone] * (ABNORMAL) PHOSPHORUS BLOOD (08/16/2022 12:44 AM CDT) [facility] Signature Phosphorus 5.2(H) 2.9 - 5.1 mg/dL 08/16/2022 1:19 AM CDT [facility] Blood BLOOD SPECIMEN / Unknown Venipuncture / Unknown 08/16/2022 12:44 AM CDT 08/16/2022 12:53 AM CDT Héctor Silva MD LAB - CHEMISTRY PATRICIA CASIANO Performing Organization Address City/[facility]/ZIP Co de Phone Number [address] [address], [facility] [phone] * MAGNESIUM BLOOD (08/16/2022 12:44 AM CDT) Magnesium 2.1 1.6 - 2.6 mg/dL 08/16/2022 1:19 AM CDT [facility] Blood BLOOD SPECIMEN / Unknown Venipuncture / Unknown 08/16/2022 12:44 AM CDT 08/16/2022 12:53 AM CDT Héctor Silva MD LAB - CHEMISTRY PATRICIA CASIANO Performing Organization Address [facility]/ZIP Co de Phone Number [address] [address], [facility] [phone] * HEMOGLOBIN A1C (08/16/2022 12:44 AM CDT) Hemoglobin A1c 5.4 <=5.6 % 08/16/2022 10:18 AM T [facility] Estimated Average Glucose 108 mg/dL 08/16/2022 10:18 AM T [facility] Comment: HbA1c Interpretation: Normal : < 5.7% Pre-diabetes: 5.7-6.4% Diabetes: Equal to or greater than 6.5% Test results diagnostic of diabetes should be repeated for confirmation. Treatment target values recommended by ADA and other clinical organizations should be used to evaluate metabolic control in patients. Reference: [place] [employer], Standards of Care in Diabetes -2020 In patients 70 years and older consider HbA1c target range of 7.0-7.5% (Reference: Celso Elizabeth, et al. JAMDA. 2012) The Sebia assay for the measurement of HbA1c is a National Glycohemoglobin Standardization Program (NGSP) certified method. Blood BLOOD SPECIMEN / Unknown Venipuncture / Unknown 08/16/2022 12:44 AM CDT 08/16/2022 12:51 AM CDT Héctor Silva MD LAB - CHEMISTRY PATRICIA CASIANO [facility] Organization Address City/State/ZIP Co de Phone Number [facility] [address] [place] [address], [facility] [phone] * MRI ANGIO BRAIN ARTERIAL WO CONT [...] DATE/TIME OF EXAM: ??08/15/2022 10:25 PM, LOCATION ??[facility] INDICATION: I61.9: Hemorrhagic stroke (CMS/HCC) ADDITIONAL CLINICAL INFORMATION: Ordering Provider Reason For Exam: ??Hemiorrhagic stroke (accession [id number]), vascular malformation (accession [id number]) Technologist Note: ??Does the patient have metal implants or stents?->No Additional: ??Kirsty Gutierrez a 81 year old F who developed sudden on nausea and vomiting on 08/15. 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 Transferred to [facility] for further management. CONTRAST: ??GADOTERATE MEGLUMINE [...] artifact is noted in the right posterior hilary measuring approximately 1.4 x 0.9 cm which [...] DATE/TIME OF EXAM: 08/15/2022 10:25 PM, LOCATION [facility] INDICATION: I61.9: Hemorrhagic stroke (CMS/HCC) ADDITIONAL CLINICAL INFORMATION: Ordering Provider Reason For Exam: Hemiorrhagic stroke (accession [id number]), vascular malformation (accession [id number]) Technologist Note: Does the patient have metal implants or stents?->No Additional: Kirsty Gutierrez a 81 year old F who developed sudden on nausea and vomiting on 08/15. Went to an OSH where CT head showedpontine ICH. Transferred to [facility] for further management. CONTRAST: GADOTERATE MEGLUMINE [...] DATE/TIME OF EXAM: ??08/15/2022 10:25 PM, LOCATION ??[facility] INDICATION: I61.9: Hemorrhagic stroke (CMS/HCC) ADDITIONAL CLINICAL INFORMATION: Ordering Provider Reason For Exam: ??Hemiorrhagic stroke (accession [id number]), vascular malformation (accession [id number]) Technologist Note: ??Does the patient have metal implants or stents?->No Additional: ??Kirsty Gutierrez a 81 year old F who developed sudden on nausea and vomiting on 08/15. 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 Transferred to [facility] for further management. CONTRAST: ??GADOTERATE MEGLUMINE [...] artifact is noted in the right posterior hilary measuring approximately 1.4 x 0.9 cm which [...] DATE/TIME OF EXAM: 08/15/2022 10:25 PM, LOCATION [facility] INDICATION: I61.9: Hemorrhagic stroke (CMS/HCC) ADDITIONAL CLINICAL INFORMATION: Ordering Provider Reason For Exam: Hemiorrhagic stroke (accession [id number]), vascular malformation (accession [id number]) Technologist Note: Does the patient have metal implants or stents?->No Additional: Kirsty Gutierrez a 81 year old F who developed sudden on nausea and vomiting on 08/15. Went to an OSH where CT head showedpontine ICH. Transferred to [facility] for further management. CONTRAST: GADOTERATE MEGLUMINE [...] 10:32AM Héctor Silva MD MR ORDERABLES * EKG 12-LEAD (08/15/2022 11:29 AM CDT) Ventricular Rate 75 BPM H MUSE Atrial Rate 75 BPM [facility] MUSE P-R Interval 190 ms [facility] M[facility] QRS Duration ms 88 ms [facility] MUSE Q-T Interval ms 466 ms [facility] MUSE QTC Calculation (Bezet) 520 ms [facility] MUSE Calculated P Shirley 78 degrees SL MUSE Calculated R Shirley 47 degrees SL MUSE Calculated T Shirley 44 degrees [facility] MUSE Interpretation EKG SINUS RHYTHM WITH MARKED SINUS ARRYTHMIA NONSPECIFIC ST AND T WAVE ABNORMALITY PROLONGED QT ABNORMAL ECG NO PRIOR TRACING AVAILABLE Confirmed by [place] ([id number]) on 08/18/2022 1:30:55 PM [facility] MUSE 08/15/2022 11:2 9 AM CDT 08/18/2022 1:30 PM CDT Héctor Silva MD ECG ORDERABLES Performing Organization Address City/[facility]/ZIP Co de Phone Number [facility] * (ABNORMAL) TROPONIN I (08/15/2022 8:17 AM CDT) Troponin I 0.037(H) <0.032 ng/mL 08/15/2022 8:45 AM CDT [facility] Blood BLOOD SPECIMEN / Unknown Venipuncture / Unknown 08/15/2022 8:17 AM CDT 08/15/2022 8:22 AM CDT Héctor Silva MD LAB - CHEMISTRY PATRICIA CASIANO Performing Organization Address [facility] Co de Phone Number [address] [address], [facility] [phone] * TROPONIN I (08/15/2022 6:17 AM CDT) Troponin I 0.030 <0.032 ng/mL 08/15/2022 6:50 AM CDT [facility] Blood BLOOD SPECIMEN / Unknown Venipuncture / Unknown 08/15/2022 6:17 AM CDT 08/15/2022 6:30 AM CDT Héctor Silva MD LAB - CHEMISTRY PATRICIA CASIANO Performing Organization Address [facility] Co de Phone Number [address] [address], [facility] [phone] * PT-INR [facility] (08/15/2022 3:39 AM CDT) PT 13.1 12.1 - 14.8 Seconds 08/15/2022 4:08 AM CDT [facility] INR 1.0 See Comment 08/15/2022 4:08 AM CDT [facility] Comment:The suggested therap eutic range for standard coumadin (warfarin) therapy is an INR of 2.0-3.0. For high-risk patients (Mechanical Mitral Valve Prosthesis, etc.), the suggested prophylactic therapeutic range is an INR of 2.5-3.5. Blood BLOOD SPECIMEN / Unknown Venipuncture / Unknown 08/15/2022 3:39 AM CDT 08/15/2022 3:45 AM CDT Héctor Silva MD LAB - COAGULATION OR DERABLES Performing Organization Address [facility] Co de Phone Number [facility] [address] [place] [address], [facility] [phone] * (ABNORMAL) BASIC METABOLIC PANEL (CALCIUM TOTAL) (08/15/2022 3:39 AM CDT) BUN 55(H) 7 - 26 mg/dL 08/15/2022 4:11 AM [facility] Creatinine 3.74(H) 0.56 - 0.96 mg/dL 08/15/2022 4:11 AM [facility] Sodium 139 136 - 145 mmol/L 08/15/2022 4:11 AM [facility] Potassium 3.3(L) 3.5 - 4.5 mmol/L 08/15/2022 4:11 AM [facility] Chloride 108(H) 98 - 107 mmol/L 08/15/2022 4:11 AM [facility] CO2 19(L) 22 - 29 mmol/L 08/15/2022 4:11 AM [facility] Glucose 149(H) 70 - 115 mg/dL 08/15/2022 4:11 AM [facility] Calcium 9.6 8.4 - 10.2 mg/dL 08/15/2022 4:11 AM [facility] Anion Gap 15 8 - 18 08/15/2022 4:11 AM [facility] BUN/Creatinine Ratio 15 7 - 23 08/15/2022 4:11 AM [facility] Osmolality Calculated 306(H) 270 - 300 mOsm/kg 08/15/2022 4:11 AM [facility] eGFR by CKD-EPI 12(L) >=90 mL/min/1.7 3 m2 08/15/2022 4:11 AM [facility] Blood BLOOD SPECIMEN / Unknown Venipuncture / Unknown 08/15/2022 3:39 AM CDT 08/15/2022 3:45 AM CDT Héctor Silva MD LAB - CHEMISTRY PATRICIA CASIANO [facility] Organization Address [facility]/State/ZIP Co de Phone Number [facility] [address] [place] [phone], [facility] [phone] * (ABNORMAL) CBC W/O DIFFERENTIAL (08/15/2022 3:39 AM CDT) WBC 6.8 3.5 - 10.5 10? 3 /uL 08/15/2022 3:59 AM [facility] RBC 3.00(L) 3.80 - 5.20 10? 6 /uL 08/15/2022 3:59 AM [facility] Hemoglobin 8.4(L) 12.0 - 15.6 g/dL 08/15/2022 3:59 AM [facility] Hematocrit 24.8(L) 35.0 - 45.0 % 08/15/2022 3:59 AM [facility] MCV 82.7 80.7 - 98.3 fL 08/15/2022 3:59 AM [facility] MCH 28.0 26.7 - 34.0 pg 08/15/2022 3:59 AM [facility] MCHC 33.9 30.8 - 35.9 g/dL 08/15/2022 3:59 AM [facility] Platelet Count 203 150 - 400 10? 3 /uL 08/15/2022 3:59 AM [facility] RDW-SD 40.0 36.0 - 50.0 fL 08/15/2022 3:59 AM [facility] RDW-CV 13.2 11.2 - 14.8 % 08/15/2022 3:59 AM [facility] MPV 9.1(L) 9.4 - 12.9 fL 08/15/2022 3:59 AM [facility] nRBC Absolute 0.00 0 10? 3 /uL 08/15/2022 3:59 AM CDT [facility] nRBC Auto 0.0 0 /100 WBC 08/15/2022 3:59 AM CDT [facility] Blood BLOOD SPECIMEN / Unknown Venipuncture / Unknown 08/15/2022 3:39 AM CDT 08/15/2022 3:45 AM CDT Héctor Silva MD LAB - HEMATOLOGY ORD ERABLES Performing Organization Address City/[facility]/ZIP Co de Phone Number [facility] [address] [place] [phone], [facility] [phone] * (ABNORMAL) TROPONIN I (08/15/2022 3:39 AM CDT) Troponin I 0.035(H) <0.032 ng/mL 08/15/2022 4:18 AM CDT [facility] Blood BLOOD SPECIMEN / Unknown Venipuncture / Unknown 08/15/2022 3:39 AM CDT 08/15/2022 3:45 AM CDT Héctor Silva MD LAB - CHEMISTRY ORDE STEPHENIE Performing Organization Address [facility] Co de Phone Number [address] [phone], [facility] [phone] documented in this encounter Visit Diagnoses Diagnosis Acute respiratory failure with hypoxia (HCC)- Primary Acute respiratory failure Intracranial hemorrhage, nontraumatic (HCC) Unspecified intracranial hemorrhage Hemorrhagic stroke (HCC) Intracerebral hemorrhage Hypertensive chronic kidney disease with stage 1 through stage 4 chronic kidney disease, or unspecified chronic kidney disease Disorder of skin and subcutaneous tissue Unspecified disorder of skin and subcutaneous tissue 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 Hyponatremia Hyposmolality and/or hyponatremia Nontraumatic intracerebral hemorrhage in brainstem, unspecified laterality (HCC) Stage 3 chronic kidney disease, unspecified whether stage 3a or 3b CKD (HCC) Acute renal failure, unspecified acute renal failure type (HCC) Anemia, unspecified type SOB (shortness of breath) Shortness of breath QT prolongation Nonspecific abnormal electrocardiogram (ECG) (EKG) Chest pain, unspecified type Swallowing dysfunction Dysphagia, unspecified Subarachnoid hemorrhage (HCC) Subarachnoid hemorrhage Acute bronchitis, unspecified organism Encounter for imaging study to confirm nasogastric (NG) tube placement Radiological examination, not elsewhere classified Primary hypertension Unspecified essential hypertension Hypertensive emergency Unspecified essential hypertension Fever, unspecified fever cause Hypertensive urgency Unspecified essential hypertension Benign hypertensive heart disease 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 failure Benign hypertensive heart disease without heart failure Intracranial hemorrhage, nontraumatic (HCC) Unspecified intracranial hemorrhage Hypertensive urgency Unspecified essential hypertension Acute renal failure (ARF) (CMS/HCC) Acute kidney failure, unspecified Pleural effusion Unspecified pleural effusion Aspiration pneumonia (HCC) Pneumonitis due to inhalation of food or vomitus Dysphagia Hyponatremia Hyposmolality and/or hyponatremia Elevated troponin Other abnormal blood chemistry Hypoalbuminemia Other disorders of plasma protein metabolism High anion gap metabolic acidosis Acidosis Normocytic anemia Anemia, unspecified Acute decompensated heart failure (HCC) Respiratory failure with hypoxia (HCC) Acute respiratory failure Hypertensive emergency Unspecified essential hypertension documented in this encounter Administered Medications Inactive Administered Medications - up to 3 most recent administrations Medication Order MAR Action Action Date Dose Rate Site 0.9% NaCl infusion at 75 mL/hr, Intravenous, CONTINUOUS, Starting on [place] 08/19/22 at 1630, Until Tue08/20/22 at 0724 $ New Bag/Syringe 08/19/2022 5:03 PM CDT 75 mL/hr 0.9% NaCl infusion at 75 mL/hr, Intravenous, CONTINUOUS, Starting on Tue08/20/22 at 1215, Until Tue08/20/22 at 1519 *Current Bag - New Order 08/20/2022 12:12 PM CDT 75 mL/hr 0.9% NaCl infusion at 100 mL/hr, Intravenous, CONTINUOUS, Starting on Tue08/20/22 at 1530, Until Tue08/21/22 at 1506 Rate Change 08/20/2022 4:05 PM CDT 100 mL/hr 0.9% NaCl injection 1-10 mL 1-10 mL, Intracatheter, PRN, Other, peripheral line flush, Starting on 08/21/22 at 1210, Until [place] 09/09/22 at 1935, Flush peripheral IV catheter with 1-10 mL of normal saline before and after medications and prn to clear blood from the line or to verify patency. $ Given 08/22/2022 3:43 AM CDT 10 mL $ Given 08/21/2022 11:46 PM CDT 10 mL 0.9% NaCl injection 3 mL 3 mL, Intracatheter, EVERY 8 HOURS, First dose on 08/15/22 at 0600, Until Discontinued, Flush peripheral IV catheter with 3 mL of normal saline every 8 hours. $ Given 08/17/2022 9:43 PM CDT 3 mL $ Given 08/17/2022 3:49 PM CDT 3 mL $ Given 08/17/2022 4:01 AM CDT 3 mL 0.9% NaCl injection 3 mL 3 mL, Intracatheter, EVERY 8 HOURS, First dose on 08/21/22 at 1400, Until Discontinued, Flush peripheral IV catheter with 3 mL of normal saline every 8 hours. $ Given 09/09/2022 5:07 AM TECHNICIAN HELPER INSTRUMENT 3 mL $ Given 09/08/2022 8:08 PM TECHNICIAN HELPER INSTRUMENT 3 mL $ Given 09/08/2022 3:20 PM TECHNICIAN HELPER INSTRUMENT 3 mL acetaminophen (Tylenol) tablet 500 mg 500 mg, Oral, EVERY 4 HOURS PRN, Mild Pain, Moderate Pain, Starting on [place] 08/19/22 at 2115, Until 08/22/22 at 1350, Patient preference for lesser PRN pain meds may be honored when the patient requests a less strong medication, a lower dose, or a less intrusive route of administration when the lesser drug, dose and route have been ordered for the patient. This patient request must be documented in the MAR. $ Given 08/21/2022 6:44 PM CDT 500 m g $ Given 08/21/2022 2:34 PM CDT 500 mg $ Given 08/21/2022 9:09 AM CDT 500 mg acetaminophen (Tylenol) tablet 500 mg 500 mg, Enteral Tube, EVERY 4 HOURS PRN, Mild Pain, Moderate Pain, Starting on 08/22/22 at 1349, Until 09/01/22 at 1359, Patient preference for lesser PRN pain meds may be honored when the patient requests a less strong medication, a lower dose, or a less intrusive route of administration when the lesser drug, dose and route have been ordered for the patient. This patient request must be documented in the MAR. $ Given 08/23/2022 10:41 AM CDT 500 mg NG Tube acetaminophen (Tylenol) tablet 500 mg 500 mg, Oral, EVERY 4 HOURS PRN, Mild Pain, Moderate Pain, Starting on Tue09/01/22 at 1359, Until [place] 09/09/22 at 1935, Patient preference for lesser PRN pain meds may be honored when the patient requests a less strong medication, a lower dose, or a less intrusive route of administration when the lesser drug, dose and route have been ordered for the patient. This patient request must be documented in the MAR. albuterol (Proventil;Ventolin) (5 MG/ML) 0.5% nebulizer solution 2.5 mg 2.5 mg, Inhalation, Once, 1 dose, On 08/21/22 at 1100 $ Given 08/21/2022 11:11 AM CDT 2.5 mg albuterol HFA (Proventil; Ventolin; Proair) 108 (90 Base) MCG/ACT inhaler 2 puff 2 puff, Inhalation, EVERY 6 HOURS PRN, Shortness of Breath, Wheezing, Starting on Tue08/20/22 at 0813, Until [place] 09/09/22 at 1935, Shake well before using. WASTE DISPOSAL INSTRUCTION: Send to Pharmacy for Disposal. $ Given 08/29/2022 3:27 PM CDT 2 puffs $ Given 08/24/2022 3:47 PM CDT 2 puffs $ Given 08/22/2022 2:08 AM CDT 2 puffs albuterol-ipratropium (Duo-Neb) nebulizer solution 3 mL 3 mL, Inhalation, Once, 1 dose, On 08/21/22 at 2330 $ Given 08/22/2022 12:14 AM CDT 3 mL albuterol-ipratropium (Duo-Neb) nebulizer solution 3 mL 3 mL, Inhalation, EVERY 4 HOURS, First dose on Tue08/22/22 at 0800, Until Discontinued $ Given 08/27/2022 8:15 AM C DT 3 mL $ Given 08/27/2022 4:32 AM CDT 3 mL $ Given 08/26/2022 11:45 PM CDT 3 mL albuterol-ipratropium (Duo-Neb) nebulizer solution 3 mL 3 mL, Inhalation, EVERY 4 HOURS PRN, Shortness of Breath, Wheezing, Starting on Tue08/27/22 at 1200, Until [place] 09/09/22 at 1935 $ Given 08/30/2022 9:41 AM CDT 3 mL $ Given 08/27/2022 1:27 PM CDT 3 mL amLODIPine (Norvasc) tablet 10 mg 10 mg, Enteral Tube, DAILY, First dose on 08/23/22 at 1330, Until Discontinued $ Given 08/26/2022 8:38 AM CDT 10 mg NG Tu be $ Given 08/25/2022 8:15 AM CDT 10 mg NG Tube $ Given 08/24/2022 9:04 AM CDT 10 mg OG Tube amLODIPine (Norvasc) tablet 10 mg 10 mg, Enteral Tube, AT BEDTIME, First dose (after last modification) on Tue08/27/22 at 2100, Until Discontinued $ Given 08/31/2022 8:54 PM CDT 10 mg NG Tube $ Given 08/30/2022 8:38 PM CDT 10 mg NG Tube $ Given 08/29/2022 9:17 PM CDT 10 mg NG Tube amLODIPine (Norvasc) tablet 10 mg 10 mg, Oral, AT BEDTIME, First dose (after last modification) on Tue09/01/22 at 2100, Until Discontinued $ Given 09/08/2022 8:06 PM TECHNICIAN HELPER INSTRUMENT 10 mg $ Given 09/07/2022 8:46 PM TECHNICIAN HELPER INSTRUMENT 10 mg $ Given 09/06/2022 9:37 PM TECHNICIAN HELPER INSTRUMENT 10 mg ampicillin-sulbactam (Unasyn) 3 g in 0.9% NaCl IV 100 mL IVPB 3 g, at 200 mL/hr, Intravenous, EVERY 24 HOURS, 5 doses, First dose on Tue08/22/22 at 2130, Last dose on Tue08/26/22 at 2130, Indication for anti-infective therapy: Suspected infection, Site of anti-infective therapy: Lower Respiratory $ New Bag/Syringe 08/26/2022 9:30 PM CDT 3 g 200 mL/hr $ New Bag/Syringe 08/25/2022 8:24 PM CDT 3 g 200 mL /hr $ New Bag/Syringe 08/24/2022 8:11 PM CDT 3 g 200 mL /hr barium (E-Z-Disk) tablet 1 tablet 1 tablet, Oral, ONCE, 1 dose, On Tue08/22/22 at 1500 $ Given - Contrast 08/22/2022 2:20 PM CDT 1 tablet barium (Varibar Thin) 40 % liquid SUSR 50 mL 50 mL, Oral, ONCE, 1 dose, On Tue09/01/22 at 1030 $ Given - Contrast 09/01/2022 10:16 AM CDT 50 mL barium (Varibar Thin) 40 % liquid SUSR 60 mL 60 mL, Oral, ONCE, 1 dose, On Tue08/22/22 at 1500 $ Given - Contrast 08/22/2022 2:20 PM CDT 60 mL barium (Varibar) 40 % paste PSTE Oral, ONCE, 1 dose, On Tue08/22/22 at 1500 $ Given - Contrast 08/22/2022 2:20 PM CDT 15 mL barium (Varibar) 40 % paste PSTE Oral, ONCE, 1 dose, On Tue09/01/22 at 1030 $ Given - Contrast 09/01/2022 10:16 AM CDT 75 mL barium (Varibar) 40 % suspension Oral, ONCE, 1 dose, On Tue08/22/22 at 1500, Barium Honey/Pelion $ Given - Contrast 08/22/2022 2:20 PM CDT 20 mL barium (Varibar) 40 % suspension Oral, ONCE, 1 dose, On Tue09/01/22 at 1030 $ Given - Contrast 09/01/2022 10:17 AM CDT 50 mL carvedilol (Coreg) tablet 12.5 mg 12.5 mg, Oral, 2 TIMES DAILY WITH MEALS, First dose on Tue09/03/22 at 1300, Until Discontinued, Take with food $ Given 09/08/2022 5:07 PM TECHNICIAN HELPER INSTRUMENT 12.5 mg $ Given 09/08/2022 7:52 AM TECHNICIAN HELPER INSTRUMENT 12.5 mg $ Given 09/07/2022 6:42 PM TECHNICIAN HELPER INSTRUMENT 12.5 mg carvedilol (Coreg) tablet 25 mg 25 mg, Oral, 2 TIMES DAILY WITH MEALS, First dose (after last modification) on [place] 09/09/22 at 0845, Until Discontinued, Take with food $ Given 09/09/2022 8:51 AM TECHNICIAN HELPER INSTRUMENT 25 mg carvedilol (Coreg) tablet 6.25 mg 6.25 mg, Oral, 2 TIMES DAILY WITH MEALS, First dose on Tue08/16/22 at 0900, Until Discontinued, Take with food $ Given 08/16/2022 9:44 AM CDT 6.25 mg cefTRIAXone (Rocephin) 2,000 mg in 0.9% NaCl IV 50 mL IVPB 2,000 mg (2 g), at 100 mL/hr, Intravenous, EVERY 24 HOURS, First dose on Tue08/22/22 at 1245, Until Discontinued, Ceftriaxone can cause precipitation when administered with calcium-containing fluids, including LR. Flush lines with a compatible fluid, such as D5W or NS before and after ceftriaxone dose. Admin through separate lumens is acceptable. , Indication for anti-infective therapy: Suspected infection, Site of anti-infective therapy: Lower Respiratory $ New Bag/Syringe 08/22/2022 6:57 PM CDT 2,000 mg 100 mL/hr cloNIDine (Catapres) patch 0.2 mg 0.2 mg, Administer over 168 Hours, EVERY 7 DAYS, First dose on [place] 09/02/22 at 0900, Until Discontinued, Remove old patch before applying new patch. This patch may contain metal and is not compatible with MRI. Notify radiology of patch location upon arrival to MRI. $ Applied 09/09/2022 8:58 AM TECHNICIAN HELPER INSTRUMENT 0.2 mg Right Arm $ Applied 09/02/2022 2:28 PM CDT 0.2 mg Be hind Left Ear cloNIDine (Catapres) tablet 0.2 mg 0.2 mg, Oral, 3 TIMES DAILY, First dose on Tue08/17/22 at 0400, Until Discontinued $ Given 08/20/2022 9:10 AM CDT 0.2 mg $ Given 08/19/2022 8:04 PM CDT 0.2 mg $ Given 08/19/2022 1:21 PM CDT 0.2 mg cloNIDine (Catapres) tablet 0.2 mg 0.2 mg, Oral, 2 TIMES DAILY, 3 doses, First dose on Tue08/20/22 at 2100, Last dose on 08/21/22 at 2100 $ Given 08/21/2022 9:09 AM CDT 0.2 mg $ Given 08/20/2022 9:37 PM CDT 0.2 mg cloNIDine (Catapres) tablet 0.2 mg 0.2 mg, Oral, 3 TIMES DAILY, First dose on 08/21/22 at 1400, Until Discontinued $ Given 08/21/2022 1:01 PM CDT 0.2 mg cloNIDine (Catapres) tablet 0.2 mg 0.2 mg, Enteral Tube, 3 TIMES DAILY, First dose (after last modification) on Tue08/22/22 at 1400, Until Discontinued $ Given 08/27/2022 1:39 PM CDT 0.2 mg NG Tu be $ Given 08/27/2022 7:49 AM CDT 0.2 mg NG Tube $ Given 08/26/2022 8:29 PM CDT 0.2 mg NG Tube cloNIDine (Catapres) tablet 0.3 mg 0.3 mg, Enteral Tube, 3 TIMES DAILY, First dose (after last modification) on Tue08/27/22 at 2100, Until Discontinued $ Given 09/01/2022 9:19 AM CDT 0.3 mg NG Tu be $ Given 08/31/2022 8:54 PM CDT 0.3 mg NG Tube $ Given 08/31/2022 8:55 AM CDT 0.3 mg NG Tube cloNIDine (Catapres) tablet 0.3 mg 0.3 mg, Oral, 3 TIMES DAILY, First dose (after last modification) on Tue09/01/22 at 1400, Until Discontinued $ Given 09/01/2022 8:33 PM CDT 0.3 mg $ Given 09/01/2022 2:45 PM CDT 0.3 mg cloNIDine (Catapres) tablet 0.3 mg 0.3 mg, Oral, 3 TIMES DAILY, 4 doses, First dose (after last modification) on [place] 09/02/22 at 0900, Last dose on Tue09/03/22 at 0900 $ Given 09/03/2022 9:20 AM CDT 0.3 mg $ Given 09/02/2022 8:53 PM CDT 0.3 mg $ Given 09/02/2022 2:23 PM CDT 0.3 mg cloNIDine patch placement confirmation Transdermal, 2 TIMES DAILY, First dose on [place] 09/02/22 at 0900, Until Discontinued, Patient has a patch to be confirmed on transition to inpatient and 2 times daily. diphenhydrAMINE (Benadryl) injection 25 mg 25 mg, Intravenous, ONCE, 1 dose, On 08/21/22 at 2345, Administer IV at a rate not exceeding 25 mg/min. Can dilute in 5-10 mL NS as needed for patient comfort. $ Given 08/21/2022 11:30 PM CDT 25 mg epoetin deyanira-EPBX (Retacrit) injection 7,000 Units 7,000 Units, Subcutaneous, EVERY 7 DAYS, First dose on Tue08/17/22 at 1515, Until Discontinued, Do not shake vial. Do not shake vial. Refrigerate $ Given 08/31/2022 4:48 PM CDT 7,000 Units See Comments $ Given 08/24/2022 3:36 PM CDT 7,000 Units L eft Arm epoetin deyanira-EPBX (Retacrit) injection 8,000 Units 8,000 Units, Intravenous, DIALYSIS EVERY E, [place] & SAT, First dose (after last modification) on Tue09/07/22 at 1700, Until Discontinued, Do not shake vial. To be administered with hemodialysis. Do not shake vial. Refrigerate $ Given 09/09/2022 3:12 PM TECHNICIAN HELPER INSTRUMENT 8,000 Units furosemide (Lasix) injection 20 mg 20 mg, Intravenous, ONCE, 1 dose, On Tue08/22/22 at 1730 $ Given 08/22/2022 5:30 PM CDT 20 mg furosemide (Lasix) injection 80 mg 80 mg, Intravenous, ONCE, 1 dose, On 08/21/22 at 2000 $ Given 08/21/2022 7:50 PM CDT 80 mg furosemide (Lasix) injection 80 mg 80 mg, Intravenous, ONCE, 1 dose, On 08/23/22 at 1615 $ Given 08/23/2022 5:32 PM CDT 80 mg gadoterate meglumine (Dotarem/Clariscan) injection Intravenous, CONTRAST ONCE, Starting on Tue08/15/22 at 2203, Until Tue08/17/22 at 0654 $ Given - Contrast 08/15/2022 10:10 PM CDT 15 mL glycerin (adult) suppository 1 suppository 1 suppository, Rectal, DAILY PRN, Constipation, Starting on Tue09/05/22 at 1032, Until [place] 09/09/22 at 1935, Second-line PRN option for constipation glycerin (adult) suppository 1 suppository 1 suppository, Rectal, ONCE, 1 dose, On Tue09/05/22 at 1100 $ Given 09/05/2022 1:53 PM TECHNICIAN HELPER INSTRUMENT 1 suppository heparin injection 5,000 Units 5,000 Units, Subcutaneous, 3 TIMES DAILY, First dose on 08/17/22 at 0945, Until Discontinued $ Given 08/21/2022 1:01 PM CDT 5,000 Units Abdominal Tissue $ Given 08/21/2022 9:10 AM CDT 5,000 Units A bd Right Lower Quadrant $ Given 08/20/2022 9:36 PM CDT 5,000 Units A bd Left Lower Quadrant heparin injection 5,000 Units 5,000 Units, Subcutaneous, 3 TIMES DAILY, First dose on [facility] 08/21/22 at 1445, Until Discontinued $ Given 09/09/2022 8:51 AM TECHNICIAN HELPER INSTRUMENT 5,000 Units Abdominal Tissue $ Given 09/08/2022 8:07 PM TECHNICIAN HELPER INSTRUMENT 5,000 Units A bd Left Lower Quadrant $ Given 09/08/2022 3:18 PM TECHNICIAN HELPER INSTRUMENT 5,000 Units A bd Right Lower Quadrant hydrALAZINE (Apresoline) injection 15 mg 15 mg, Intravenous, EVERY 6 HOURS, 2 doses, First dose (after last modification) on [facility] 08/21/22 at 2330, Last dose on [place] 08/22/22 at 0600 $ Given 08/22/2022 6:00 AM CDT 15 mg $ Given 08/21/2022 11:45 PM CDT 15 mg hydrALAZINE (Apresoline) injection 15 mg 15 mg, Intravenous, ONCE, 1 dose, On [place] 08/22/22 at 0815 $ Given 08/22/2022 8:09 AM CDT 15 mg hydrALAZINE (Apresoline) injection 15 mg 15 mg, Intravenous, EVERY 4 HOURS PRN, SBP greater than 160 mmHg, If Labetalol Ineffective, Starting on [place] 08/22/22 at 0847, Until [facility] 08/26/22 at 1539 $ Given 08/25/2022 6:17 PM CDT 15 mg $ Given 08/25/2022 4:13 AM CDT 15 mg $ Given 08/24/2022 3:03 AM CDT 15 mg hydrALAZINE (Apresoline) injection 15 mg 15 mg, Intravenous, EVERY 4 HOURS PRN, SBP > 180; If Labetalol Ineffective, Starting on [facility] 08/26/22 at 1538, Until [facility] 09/09/22 at 1935 $ Given 08/29/2022 6:25 PM CDT 15 mg $ Given 08/27/2022 5:51 AM CDT 15 mg hydrALAZINE (Apresoline) injection 20 mg 20 mg, Intravenous, NOW, 1 dose, On Tue08/17/22 at 0400 $ Admin. by Other Provider 08/17/2022 3:49 AM CDT 20 mg hydrALAZINE (Apresoline) tablet 100 mg 100 mg, Enteral Tube, 3 TIMES DAILY, First dose (after last modification) on Tue08/23/22 at 1400, Until Discontinued $ Given 09/01/2022 9:19 AM CDT 100 mg NG Tube $ Given 08/31/2022 8:54 PM CDT 100 mg NG Tube $ Given 08/31/2022 8:55 AM CDT 100 mg NG Tube hydrALAZINE (Apresoline) tablet 100 mg 100 mg, Oral, 3 TIMES DAILY, First dose (after last modification) on Tue09/01/22 at 1400, Until Discontinued 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 100 mg $ Given 09/08/2022 8:06 PM TECHNICIAN HELPER INSTRUMENT 100 mg $ Given 09/08/2022 3:19 PM TECHNICIAN HELPER INSTRUMENT 100 mg hydrALAZINE (Apresoline) tablet 50 mg 50 mg, Oral, 3 TIMES DAILY, First dose on Tue08/17/22 at 0215, Until Discontinued $ Given 08/21/2022 1:01 PM CDT 50 mg $ Given 08/21/2022 9:10 AM CDT 50 mg $ Given 08/20/2022 9:36 PM CDT 50 mg hydrALAZINE (Apresoline) tablet 50 mg 50 mg, Enteral Tube, 3 TIMES DAILY, First dose (after last modification) on 08/22/22 at 1400, Until Discontinued $ Given 08/23/2022 8:02 AM CDT 50 mg NG Tu be $ Given 08/22/2022 8:07 PM CDT 50 mg NG Tube $ Given 08/22/2022 3:57 PM CDT 50 mg NG Tube hydrOXYzine HCl (Atarax) tablet 10 mg 10 mg, Oral, 3 TIMES DAILY PRN, Itching, Starting on 08/21/22 at 1201, Until 08/22/22 at 0701 $ Given 08/21/2022 7:04 PM CDT 10 mg $ Given 08/21/2022 12:58 PM CDT 10 mg hydrOXYzine HCl (Atarax) tablet 10 mg 10 mg, Oral, 3 TIMES DAILY, First dose (after last modification) on Tue08/22/22 at 0715, Until Discontinued $ Given 08/22/2022 7:32 AM CDT 10 mg hydrOXYzine HCl (Atarax) tablet 10 mg 10 mg, Enteral Tube, 3 TIMES DAILY, First dose (after last modification) on Tue08/22/22 at 1400, Until Discontinued $ Given 08/22/2022 3:57 PM CDT 10 mg NG Tube iron sucrose (Venofer) injection 100 mg 100 mg, Intravenous, ONCE, 1 dose, On Tue08/24/22 at 1415, May administer up to 200 mg of undiluted solution IVP slowly over 5 minutes $ Given 08/24/2022 3:35 PM CDT 100 mg iron sucrose (Venofer) injection 200 mg 200 mg, Intravenous, ONCE, 1 dose, On Tue08/23/22 at 1615, May administer up to 200 mg of undiluted solution IVP slowly over 5 minutes $ Given 08/23/2022 5:32 PM CDT 200 mg iron sucrose (Venofer) injection 200 mg 200 mg, Intravenous, ONCE, 1 dose, On Tue08/25/22 at 1345, May administer up to 200 mg of undiluted solution IVP slowly over 5 minutes $ Given 08/25/2022 2:18 PM CDT 200 mg isolyte-S pH 7.4 infusion at 75 mL/hr, Intravenous, CONTINUOUS, Starting on Tue08/15/22 at 0800, Until Tue08/16/22 at 0822 $ New Bag/Syringe 08/15/2022 10:58 PM CDT 75 mL/hr $ New Bag/Syringe 08/15/2022 8:57 AM CDT 75 mL/ hr labetalol (Normodyne; Trandate) injection 10 mg 10 mg, Intravenous, EVERY 15 MIN PRN, Hypertension, see nursing instructions, Starting on Tue08/15/22 at 0310, Until Tue08/18/22 at 0656, IVP over 1-2 minutes until target blood pressure goal is reached. If BP out of goal range after 2 doses may use alternative agent or contact physician. Cumulative dose not to exceed 300 mg/24 hrs. Exclusion criteria for Labetolol: Asthma, Cardiac Failure, Heart Block, Heart rate less than 60, or Severe Cardiac Abnormalites. $ Given 08/17/2022 1:30 AM CDT 10 mg $ Admin. by Other Provider 08/17/2022 12:48 AM CDT 10 mg $ Given 08/15/2022 4:23 AM CDT 10 mg labetalol (Normodyne; Trandate) injection 20 mg 20 mg, Intravenous, EVERY 2 HOURS PRN, SBP greater than 160 mmHg, Starting on 08/22/22 at 0848, Until [place] 08/26/22 at 1539, Max IV dose is 300mg/24 hours. $ Given 08/25/2022 5:43 PM CDT 20 mg $ Given 08/25/2022 3:34 AM CDT 20 mg $ Given 08/25/2022 1:13 AM CDT 20 mg labetalol (Normodyne; Trandate) injection 20 mg 20 mg, Intravenous, EVERY 2 HOURS PRN, SBP > 180, Starting on [place] 08/26/22 at 1539, Until [place] 09/09/22 at 1935, Max IV dose is 300mg/24 hours. $ Given 08/29/2022 5:52 PM CDT 20 mg $ Given 08/27/2022 1:03 PM CDT 20 mg $ Given 08/27/2022 8:34 AM CDT 20 mg labetalol (Normodyne; Trandate) tablet 200 mg 200 mg, Oral, EVERY 12 HOURS, First dose (after last modification) on Tue08/16/22 at 1730, Until Discontinued $ Given 08/16/2022 5:38 PM CDT 200 mg labetalol (Normodyne; Trandate) tablet 200 mg 200 mg, Oral, EVERY 12 HOURS, First dose (after last modification) on Tue08/18/22 at 2100, Until Discontinued $ Given 08/21/2022 9:09 AM CDT 200 mg $ Given 08/20/2022 9:36 PM CDT 200 mg $ Given 08/20/2022 9:10 AM CDT 200 mg labetalol (Normodyne; Trandate) tablet 200 mg 200 mg, Enteral Tube, EVERY 12 HOURS, First dose (after last modification) on 08/22/22 at 2100, Until Discontinued $ Given 08/24/2022 9:03 AM CDT 200 mg NG Tu be $ Given 08/23/2022 8:01 PM CDT 200 mg NG Tube $ Given 08/23/2022 8:01 AM CDT 200 mg NG Tube labetalol (Normodyne; Trandate) tablet 200 mg 200 mg, Enteral Tube, EVERY 8 HOURS, First dose (after last modification) on Tue08/24/22 at 1400, Until Discontinued $ Given 09/01/2022 5:51 AM CDT 200 mg NG Tu be $ Given 08/31/2022 8:54 PM CDT 200 mg NG Tube $ Given 08/31/2022 5:42 AM CDT 200 mg NG Tube labetalol (Normodyne; Trandate) tablet 200 mg 200 mg, Oral, EVERY 8 HOURS, First dose (after last modification) on Tue09/01/22 at 1400, Until Discontinued $ Given 09/03/2022 6:52 AM CDT 200 mg $ Given 09/02/2022 8:52 PM CDT 200 mg $ Given 09/02/2022 2:23 PM CDT 200 mg labetalol (Normodyne; Trandate) tablet 300 mg 300 mg, Oral, EVERY 12 HOURS, First dose (after last modification) on Tue08/17/22 at 0900, Until Discontinued $ Given 08/18/2022 9:38 AM CDT 300 mg $ Given 08/17/2022 9:37 PM CDT 200 mg $ Given 08/17/2022 8:52 AM CDT 200 mg lidocaine (Xylocaine) 1 % injection Subcutaneous, ONCE PRN, Starting on Tue08/25/22 at 1208, Until Tue08/25/22 at 1208 $ Given 08/25/2022 12:08 PM CDT 5 mL See Comments LORazepam (Ativan) injection 0.5 mg 0.5 mg, Intravenous, ONCE, 1 dose, On Tue08/22/22 at 0400 $ Given 08/22/2022 3:43 AM CDT 0.5 mg LORazepam (Ativan) tablet 0.5 mg 0.5 mg, Oral, ONCE, 1 dose, On Tue08/20/22 at 0715 $ Given 08/20/2022 7:32 AM CDT 0.5 mg losartan (Cozaar) tablet 100 mg 100 mg, Enteral Tube, DAILY, First dose (after last modification) on Tue08/27/22 at 0900, Until Discontinued $ Given 09/01/2022 9:19 AM CDT 100 mg NG Tube $ Given 08/31/2022 8:55 AM CDT 100 mg NG Tube $ Given 08/29/2022 9:52 AM CDT 100 mg NG Tube losartan (Cozaar) tablet 100 mg 100 mg, Oral, DAILY, First dose (after last modification) on [place] 09/02/22 at 0900, Until Discontinued 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 100 mg $ Given 09/08/2022 7:53 AM TECHNICIAN HELPER INSTRUMENT 100 mg $ Given 09/07/2022 12:17 PM TECHNICIAN HELPER INSTRUMENT 100 mg losartan (Cozaar) tablet 50 mg 50 mg, Enteral Tube, DAILY, First dose on 08/24/22 at 1230, Until Discontinued $ Given 08/26/2022 8:38 AM CDT 50 mg NG Tu be $ Given 08/25/2022 8:15 AM CDT 50 mg NG Tube $ Given 08/24/2022 1:13 PM CDT 50 mg NG Tube losartan (Cozaar) tablet 50 mg 50 mg, Oral, Once, 1 dose, On [facility] 08/26/22 at 1230, Completion of therapy; prior 1x dose dropped on floor $ Given 08/26/2022 12:33 PM CDT 50 mg metoprolol (Lopressor) injection 7.5 mg 7.5 mg, Intravenous, EVERY 6 HOURS, 2 doses, First dose (after last modification) on 08/21/22 at 2330, Last dose on [place] 08/22/22 at 0600 $ Given 08/22/2022 5:53 AM CDT 7.5 mg $ Given 08/21/2022 11:30 PM CDT 7.5 mg metroNIDAZOLE (Flagyl) 500 mg in 100 mL IVPB 500 mg, at 200 mL/hr, Intravenous, EVERY 8 HOURS, First dose on [place] 08/22/22 at 1430, Until Discontinued, Controlled Room Temperature, Indication for anti-infective therapy: Suspected infection, Site of anti-infective therapy: Lower Respiratory $ New Bag/Syringe 08/22/2022 6:22 PM CDT 500 mg 200 mL/hr niCARdipine (Cardene) 20 mg in 0.9% NaCl 200 mL infusion 5-15 mg/hr (50-150 mL/hr), Intravenous, CONTINUOUS, Starting on Tue08/15/22 at 0345, Until Tue08/16/22 at 0818, Change the infusion site every 12 hours if a peripheral vein is used, Titration Parameters: Custom Parameters, Indication: Hypertension, Initiate infusion at: 5 mg/hr, Titrate infusion by: 2.5 mg/hr, Titrate every: 5 minutes, To maintain a: Other - see comments, Notify physician if: SBP greater than - Other - see comments, despite max dose Rate Change 08/16/2022 4:32 AM CDT 5 mg/hr 50 mL/hr Rate Change 08/16/2022 2:20 AM CDT 7.5 mg/hr 75 mL/hr $ New Bag/Syringe 08/16/2022 1:08 AM CDT 8.5 mg/hr 85 mL/ hr niCARdipine (Cardene) 20 mg in 0.9% NaCl 200 mL infusion 0-15 mg/hr (0-150 mL/hr), Intravenous, CONTINUOUS, Starting on Tue08/22/22 at 1730, Until Tue08/25/22 at 1346, Change the infusion site every 12 hours if a peripheral vein is used, Titration Parameters: Standard Parameters, Indication: Hypertension, Initiate infusion at: 2.5 mg/hr, Titrate infusion by: 2.5 mg/hr, Titrate every: 15 minutes, To maintain a: Other - see comments, Notify physician if: SBP greater than 180 mmHg despite max dose Rate Change 08/25/2022 11:00 AM CDT 2.5 mg/hr 25 mL/hr $ New Bag/Syringe 08/25/2022 8:39 AM CDT 5 mg/hr 50 mL/ hr Restarted 08/25/2022 8:35 AM CDT 2.5 mg/hr 25 mL/hr niCARdipine (Cardene) 20 mg in 0.9% NaCl 200 mL infusion 0-15 mg/hr (0-150 mL/hr), Intravenous, CONTINUOUS, Starting on Tue08/25/22 at 1400, Until Marlin 08/26/22 at 1536, Change the infusion site every 12 hours if a peripheral vein is used, Titration Parameters: Standard Parameters, Indication: Hypertension, Initiate infusion at: 2.5 mg/hr, Titrate infusion by: 2.5 mg/hr, Titrate every: 15 minutes, To maintain a: Other - see comments, Notify physician if: SBP greater than - Other - see comments, despite max dose Rate Change 08/26/2022 7:57 AM CDT 2.5 mg/hr 25 mL/hr Current Rate 08/26/2022 7:34 AM CDT 5 mg/hr 50 mL/hr Titration/Assessment 08/26/2022 7:34 AM CDT 5 mg/hr 50 mL/hr NIFEdipine CR osmotic 24hr (Procardia-XL) tablet 60 mg 60 mg, Oral, DAILY, First dose on Tue08/17/22 at 0100, Until Discontinued, Do not crush, chew, or cut in half. $ Given 08/17/2022 12:56 AM CDT 60 mg NIFEdipine CR osmotic 24hr (Procardia-XL) tablet 90 mg 90 mg, Oral, DAILY, First dose (after last modification) on Tue08/17/22 at 1015, Until Discontinued, Do not crush, chew, or cut in half. $ Given 08/21/2022 9:08 AM CDT 90 mg $ Given 08/20/2022 9:10 AM CDT 90 mg $ Given 08/19/2022 8:19 AM CDT 90 mg NIFEdipine CR osmotic 24hr (Procardia-XL) tablet 90 mg 90 mg, Oral, DAILY, First dose (after last reorder) on Tue08/22/22 at 1600, Until Discontinued, Do not crush, chew, or cut in half. $ Given 08/22/2022 3:59 PM CDT 90 mg perflutren lipid microsphere (Definity) injection 0.5 mL 0.5 mL, Intravenous, INTRA-PROCEDURE MULTIPLE, 6 doses, Starting on Tue08/16/22 at 0930, Until Tue08/17/22 at 0653, For Echo Procedure - Per Protocol Give slowly Shake well before using. $ Given 08/16/2022 9:30 AM CDT 0.5 mL polyethylene glycol 3350 (Miralax) packet 17 g 17 g, Oral, DAILY, First dose on Tue08/16/22 at 0900, Until Discontinued, Mix in 8 ounces of water, juice, soda, coffee or tea prior to administration $ Given 08/21/2022 9:08 AM CDT 17 g $ Given 08/20/2022 9:09 AM CDT 17 g $ Given 08/19/2022 8:19 AM CDT 17 g polyethylene glycol 3350 (Miralax) packet 17 g 17 g, Enteral Tube, DAILY, First dose (after last modification) on 08/23/22 at 0900, Until Discontinued, Mix in 8 ounces of water, juice, soda, coffee or tea prior to administration $ Given 09/01/2022 9:19 AM CDT 17 g NG Tube $ Given 08/31/2022 8:55 AM CDT 17 g NG Tube $ Given 08/25/2022 8:14 AM CDT 17 g NG Tube polyethylene glycol 3350 (Miralax) packet 17 g 17 g, Oral, 2 TIMES DAILY, First dose (after last modification) on 09/04/22 at 2100, Until Discontinued, Mix in 8 ounces of water, juice, soda, coffee or tea prior to administration $ Given 09/09/2022 8:51 AM TECHNICIAN HELPER INSTRUMENT 17 g $ Given 09/08/2022 8:07 PM TECHNICIAN HELPER INSTRUMENT 17 g $ Given 09/06/2022 9:38 PM TECHNICIAN HELPER INSTRUMENT 17 g potassium - sodium phosphates (Phos-Nak) powder 1 packet 1 packet, Enteral Tube, Once, 1 dose, On Marlin 08/26/22 at 0830, Mix contents of packet in 6 to 8 ounces of water and drink, may taste better if cold Contains Phos 8 mmol, K+ 7 mEq, Na 7 mEq per packet $ Given 08/26/2022 8:38 AM CDT 1 packet NG Tube potassium chloride (Klor-Con) packet 40 mEq 40 mEq, Oral, ONCE, 1 dose, On Tu08/17/22 at 0815, DISSOLVE IN 120 ML OF COLD WATER OR JUICE AND DRINK SLOWLY $ Given 08/17/2022 8:52 AM CDT 40 mEq potassium chloride (Klor-Con) packet 40 mEq 40 mEq, Oral, ONCE, 1 dose, On Tue08/25/22 at 0645, DISSOLVE IN 120 ML OF COLD WATER OR JUICE AND DRINK SLOWLY $ Given 08/25/2022 6:51 AM CDT 40 mEq potassium chloride (Klor-Con) packet 40 mEq 40 mEq, Enteral Tube, ONCE, 1 dose, On Marlin 08/26/22 at 1645, DISSOLVE IN 120 ML OF COLD WATER OR JUICE AND DRINK SLOWLY $ Given 08/26/2022 4:36 PM CDT 40 mEq NG Tube potassium chloride 20 mEq in 100 mL SW bolus 20 mEq, at 50 mL/hr, Administer over 2 Hours, Intravenous, ONCE, 1 dose, On Tue08/16/22 at 0200 $ New Bag/Syringe 08/16/2022 2:06 AM CDT 20 mEq 50 mL/hr potassium chloride 40 mEq in 270 mL bolus 40 mEq, at 67.5 mL/hr, Administer over 4 Hours, Intravenous, ONCE, 1 dose, On Tue08/27/22 at 0715 $ New Bag/Syringe 08/27/2022 7:48 AM CDT 40 mEq 67.5 mL/hr potassium chloride ER (Klor-Con M) tablet 20 mEq 20 mEq, Oral, ONCE, 1 dose, On Marlin 09/09/22 at 0800, Do not crush or chew. 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 20 mEq predniSONE (Deltasone) tablet 40 mg 40 mg, Enteral Tube, DAILY, 4 doses, First dose (after last modification) on 08/22/22 at 1930, Last dose on Tue08/25/22 at 0900 $ Given 08/22/2022 8:07 PM CDT 40 mg NG Tube senna (Senokot) tablet 17.2 mg 17.2 mg, Oral, DAILY, First dose on Tue08/16/22 at 0900, Until Discontinued $ Given 08/21/2022 9:09 AM CDT 17.2 mg $ Given 08/20/2022 9:10 AM CDT 17.2 mg $ Given 08/19/2022 8:19 AM CDT 17.2 mg senna (Senokot) tablet 17.2 mg 17.2 mg, Enteral Tube, DAILY, First dose (after last modification) on Tue08/23/22 at 0900, Until Discontinued $ Given 08/26/2022 8:38 AM CDT 17.2 mg NG Tu be $ Given 08/25/2022 8:14 AM CDT 17.2 mg NG Tube $ Given 08/24/2022 9:03 AM CDT 17.2 mg NG Tube senna (Senokot) tablet 8.6 mg 8.6 mg, Oral, DAILY PRN, Constipation, Starting on Tue09/01/22 at 1359, Until Tue09/09/22 at 1935, First-line PRN option for constipation senna-docusate (Senokot-S) tablet 1 tablet 1 tablet, Oral, 2 TIMES DAILY, First dose on Tue09/04/22 at 1200, Until Discontinued 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 1 tablet $ Given 09/08/2022 8:07 PM TECHNICIAN HELPER INSTRUMENT 1 tablet $ Given 09/06/2022 9:37 PM TECHNICIAN HELPER INSTRUMENT 1 tablet sevelamer carbonate (Renvela) tablet 800 mg 800 mg, Oral, 3 TIMES DAILY WITH MEALS, First dose on Tue08/20/22 at 0800, Until Discontinued $ Given 08/20/2022 5:57 PM CDT 800 mg $ Given 08/20/2022 12:09 PM CDT 800 mg $ Given 08/20/2022 7:32 AM CDT 800 mg sodium - potassium phosphates (K Phos Neutral) tablet 1 tablet 1 tablet, Oral, 3 TIMES DAILY, 3 doses, First dose on Tue08/25/22 at 0900, Last dose on Tue08/25/22 at 2100, Contains Phos 8 mmol, K+ 1.1 mEq, Na 13 mEq per tablet $ Given 08/25/2022 8:13 PM CDT 1 tablet $ Given 08/25/2022 2:19 PM CDT 1 tablet $ Given 08/25/2022 8:14 AM CDT 1 tablet NG Tube sodium bicarbonate tablet 1,300 mg 1,300 mg, Oral, 2 TIMES DAILY, First dose (after last modification) on Tue08/20/22 at 2100, Until Discontinued $ Given 08/21/2022 9:08 AM CDT 1,300 mg $ Given 08/20/2022 9:36 PM CDT 1,300 mg sodium bicarbonate tablet 1,300 mg 1,300 mg, Oral, 3 TIMES DAILY, First dose (after last modification) on Tue08/21/22 at 1400, Until Discontinued $ Given 08/21/2022 2:26 PM CDT 1,300 mg sodium bicarbonate tablet 1,300 mg 1,300 mg, Enteral Tube, 3 TIMES DAILY, First dose (after last modification) on 08/22/22 at 1400, Until Discontinued $ Given 08/24/2022 9:03 AM CDT 1,300 mg OG Tube $ Given 08/23/2022 8:01 PM CDT 1,300 mg NG Tube $ Given 08/23/2022 2:44 PM CDT 1,300 mg NG Tube sodium bicarbonate tablet 650 mg 650 mg, Oral, 2 TIMES DAILY, First dose on Tue08/20/22 at 1315, Until Discontinued $ Given 08/20/2022 2:18 PM CDT 650 mg sodium chloride tablet 1 g 1 g, Oral, 3 TIMES DAILY WITH MEALS, First dose on 08/21/22 at 1800, Until Discontinued $ Given 08/21/2022 6:09 PM CDT 1 g sodium chloride tablet 1 g 1 g, Enteral Tube, 3 TIMES DAILY WITH MEALS, First dose (after last modification) on 08/22/22 at 1800, Until Discontinued $ Given 08/23/2022 11:35 AM CDT 1 g NG Tube $ Given 08/23/2022 8:01 AM CDT 1 g NG Tube $ Given 08/22/2022 5:39 PM CDT 1 g NG Tube tamsulosin (Flomax) capsule 0.4 mg 0.4 mg, Oral, DAILY, First dose on Marlin 08/19/22 at 1630, Until Discontinued, At the same time every day after a meal. Do not crush, chew $ Given 08/20/2022 9:10 AM CDT 0.4 mg $ Given 08/19/2022 5:04 PM CDT 0.4 mg tamsulosin (Flomax) capsule 0.8 mg 0.8 mg, Oral, DAILY, First dose (after last modification) on 08/21/22 at 0900, Until Discontinued, At the same time every day after a meal. Do not crush, chew $ Given 08/21/2022 9:09 AM CDT 0.8 mg vitamin B complex w/ C 60mg & FA 0.8mg (Nephro-Donna) tablet 1 tablet 1 tablet, Oral, DAILY, First dose on Marlin 09/09/22 at 0900, Until Discontinued 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 1 table t documented in this encounter Active and Recently Administered Medications Times are shown in TECHNICIAN HELPER INSTRUMENT. Scheduled Medication Order 09/07/2022 09/08/2022 09/09/2022 0.9% NaCl injection 3 mL(Linked Group 1) 3 mL, Intracatheter, EVERY 8 HOURS, First dose on Tue08/21/22 at 1400, Until Discontinued, Flush peripheral IV catheter with 3 mL of normal saline every 8 hours. 0629 ($ Given - Provider: Cb Barr RN)1220 ($ Given - Provider: Kirsty Miranda RN)2201 (Not Administered - Provider: Perla Monzon RN - Reason: Patient sleeping) 0506 (Not Administered - Provider: Perla Monzon RN - Reason: Patient sleeping)1520 ($ Given - Provider: Kirsty Miranda RN)2007 ($ Given - Provider: Nimco Davila RN) 0507 ($ Given - Provider: Nimco Davila RN)1400 (Canceled Entry - Provider: Kerrie Thomson RN) amLODIPine (Norvasc) tablet 10 mg 10 mg, Oral, AT BEDTIME, First dose (after last modification) on Tue09/01/22 at 2100, Until Discontinued 2045 ($ Given - Provider: Perla Monzon RN) 2005 ($ Given - Provider: Nimco Davila RN) carvedilol (Coreg) tablet 12.5 mg (CANCELED) 12.5 mg, Oral, 2 TIMES DAILY WITH MEALS, First dose on Tue09/03/22 at 1300, Until Discontinued, Take with food 1232 ($ Given - Provider: Kirsty Miranda RN)1842 ($ Given - Provider: Kirsty Miranda RN) 0752 ($ Given - Provider: Kirsty Miranda RN)1707 ($ Given - Provider: Kirsty Miranda RN) 0852 (Canceled Entry - Provider: Kerrie Thomson, GERA) carvedilol (Coreg) tablet 25 mg 25 mg, Oral, 2 TIMES DAILY WITH MEALS, First dose (after last modification) on Tue09/09/22 at 0845, Until Discontinued, Take with food 0851 ($ Given - Provider: Kerrie Thomson RN)1800 (Due) cloNIDine (Catapres) patch 0.2 mg(Linked Group 2) 0.2 mg, Administer over 168 Hours, EVERY 7 DAYS, First dose on Tue09/02/22 at 0900, Until Discontinued, Remove old patch before applying new patch. This patch may contain metal and is not compatible with MRI. Notify radiology of patch location upon arrival to MRI. 0830 (Removed - Provider: Kerrie Thomson RN)0858 ($ Applied - Provider: Kerrie Thomson RN) cloNIDine patch placement confirmation(Linked Group 2) Transdermal, 2 TIMES DAILY, First dose on Tue09/02/22 at 0900, Until Discontinued, Patient has a patch to be confirmed on transition to inpatient and 2 times daily. 1229 (*Reviewed - Provider: Kirsty Miranda RN)203 (*Reviewed - Provider: Perla Monzon, RN) 0753 (Removed - Provider: Kirsty Miranda RN)204 (Removed - Provider: Nimco Davila RN) 0859 (*Reviewed - Provider: Kerrie Thomson RN) epoetin deyanira-EPBX (Retacrit) injection 8,000 Units 8,000 Units, Intravenous, DIALYSIS EVERY TUE, TUE & SAT, First dose (after last modification) on Tue09/07/22 at 1700, Until Discontinued, Do not shake vial. To be administered with hemodialysis. Do not shake vial. Refrigerate 1200 (Held - Provider: Kerrie Thomson RN - Reason: See Comments - Comment: Patient in dialysis at this time)1512 ($ Given - Provider: Maryana Strong RN) heparin injection 5,000 Units 5,000 Units, Subcutaneous, 3 TIMES DAILY, First dose on 08/21/22 at 1445, Until Discontinued 1219 ($ Given - Provider: Kirsty Miranda RN)1224 (Not Administered - Provider: Kirsty Miranda RN - Reason: See Comments - Comment: patient was off the floor in dialysis)2045 ($ Given - Provider: Perla Monzon RN) 0753 ($ Given - Provider: Kirsty Miranda RN)1518 ($ Given - Provider: Kirsty Miranda RN)2007 ($ Given - Provider: Nimco Davila RN) 0851 ($ Given - Provider: Kerrie Thomson RN)1400 (Held - Provider: Kerrie Thomson RN - Reason: See Comments - Comment: patient in dialysis) hydrALAZINE (Apresoline) tablet 100 mg 100 mg, Oral, 3 TIMES DAILY, First dose (after last modification) on Tue09/01/22 at 1400, Until Discontinued 1217 ($ Given - Provider: Kirsty Miranda RN)1225 (Not Administered - Provider: Kirsty Miranda RN - Reason: See Comments - Comment: Pt was off the floor in dialysis)2045 ($ Given - Provider: Perla Monzon RN) 0753 ($ Given - Provider: Kirsty Miranda RN)1519 ($ Given - Provider: Kirsty Miranda RN)2005 ($ Given - Provider: Nimco Davila RN) 0850 ($ Given - Provider: Kerrie Thomson, RN)1400 (Held - Provider: Kerrie Thomson RN - Reason: See Comments - Comment: patient in dialysis) losartan (Cozaar) tablet 100 mg 100 mg, Oral, DAILY, First dose (after last modification) on Tue09/02/22 at 0900, Until Discontinued 1217 ($ Given - Provider: Kirsty Miranda RN) 0753 ($ Given - Provider: Kirsty Miranda RN) 0850 ($ Given - Provider: Kerrie Thomson, GERA) polyethylene glycol 3350 (Miralax) packet 17 g 17 g, Oral, 2 TIMES DAILY, First dose (after last modification) on Tue09/04/22 at 2100, Until Discontinued, Mix in 8 ounces of water, juice, soda, coffee or tea prior to administration 1225 (Not Administered - Provider: Kirsty Miranda RN - Reason: Patient Condition - Comment: Patient is having loose watery stools)2038 (Not Administered - Provider: Perla Monzon RN - Reason: See Comments - Comment: Multiple BM today) 0754 (Not Administered - Provider: Kirsty Miranda RN - Reason: See Comments - Comment: Patient is having loose bm's all night)2006 ($ Given - Provider: Nimco Davila RN) 0851 ($ Given - Provider: Kerrie Thomson, GERA) potassium chloride ER (Klor-Con M) tablet 20 mEq (COMPLETED) 20 mEq, Oral, ONCE, 1 dose, On Marlin 09/09/22 at 0800, Do not crush or chew. 0850 ($ Given - Provider: Kerrie Thomson RN) senna-docusate (Senokot-S) tablet 1 tablet 1 tablet, Oral, 2 TIMES DAILY, First dose on 09/04/22 at 1200, Until Discontinued 1218 (Not Administered - Provider: Kirsty Miranda RN - Reason: See Comments - Comment: Loose stoolsWatery)2038 (Not Administered - Provider: Perla Monzon RN - Reason: See Comments - Comment: multiple bm today) 0754 (Not Administered - Provider: Kirsty Miranda RN - Reason: See Comments - Comment: Patient is having loose bm's all night)2006 ($ Given - Provider: Nimco Davila RN) 0850 ($ Given - Provider: Kerrie Thomson RN) vitamin B complex w/ C 60mg & FA 0.8mg (Nephro-Donna) tablet 1 tablet 1 tablet, Oral, DAILY, First dose on Marlin 09/09/22 at 0900, Until Discontinued 0850 ($ Given - Provider: Kerrie Thomson RN) PRN Medication Order 09/07/2022 09/08/2022 09/09/2022 0.9% NaCl injection 1-10 mL(Linked Group 1) 1-10 mL, Intracatheter, PRN, Other, peripheral line flush, Starting on Tue08/21/22 at 1210, Until Marlin 09/09/22 at 1935, Flush peripheral IV catheter with 1-10 mL of normal saline before and after medications and prn to clear blood from the line or to verify patency. acetaminophen (Tylenol) tablet 500 mg 500 mg, Oral, EVERY 4 HOURS PRN, Mild Pain, Moderate Pain, Starting on Tue09/01/22 at 1359, Until Marlin 09/09/22 at 1935, Patient preference for lesser PRN pain meds may be honored when the patient requests a less strong medication, a lower dose, or a less intrusive route of administration when the lesser drug, dose and route have been ordered for the patient. This patient request must be documented in the MAR. albuterol HFA (Proventil; Ventolin; Proair) 108 (90 Base) MCG/ACT inhaler 2 puff 2 puff, Inhalation, EVERY 6 HOURS PRN, Shortness of Breath, Wheezing, Starting on Tue08/20/22 at 0813, Until Marlin 09/09/22 at 1935, Shake well before using. WASTE DISPOSAL INSTRUCTION: Send to Pharmacy for Disposal. albuterol-ipratropium (Duo-Neb) nebulizer solution 3 mL 3 mL, Inhalation, EVERY 4 HOURS PRN, Shortness of Breath, Wheezing, Starting on Tue08/27/22 at 1200, Until Tue09/09/22 at 1935 glycerin (adult) suppository 1 suppository 1 suppository, Rectal, DAILY PRN, Constipation, Starting on Tue09/05/22 at 1032, Until Tue09/09/22 at 1935, Second-line PRN option for constipation hydrALAZINE (Apresoline) injection 15 mg 15 mg, Intravenous, EVERY 4 HOURS PRN, SBP > 180; If Labetalol Ineffective, Starting on Tue08/26/22 at 1538, Until Tue09/09/22 at 1935 labetalol (Normodyne; Trandate) injection 20 mg 20 mg, Intravenous, EVERY 2 HOURS PRN, SBP > 180, Starting on Tue08/26/22 at 1539, Until Tue09/09/22 at 1935, Max IV dose is 300mg/24 hours. senna (Senokot) tablet 8.6 mg 8.6 mg, Oral, DAILY PRN, Constipation, Starting on Tue09/01/22 at 1359, Until Tue09/09/22 at 1935, First-line PRN option for constipation Linked Groups Order Group 1: SALINE LOCK, INSERT AND MAINTAIN (CANCELED) Routine, CONTINUOUS, Starting on Tue08/21/22 at 1215, Until Specified, New collection And 0.9% NaCl injection 3 mLJump to med 3 mL, Intracatheter, EVERY 8 HOURS, First dose on Tue08/21/22 at 1400, Until Discontinued, Flush peripheral IV catheter with 3 mL of normal saline every 8 hours. And 0.9% NaCl injection 1-10 mLJump to med 1-10 mL, Intracatheter, PRN, Other, peripheral line flush, Starting on Tue08/21/22 at 1210, Until Tue09/09/22 at 1935, Flush peripheral IV catheter with 1-10 mL of normal saline before and after medications and prn to clear blood from the line or to verify patency. Group 2: cloNIDine (Catapres) patch 0.2 mgJump to med 0.2 mg, Administer over 168 Hours, EVERY 7 DAYS, First dose on Marlin 09/02/22 at 0900, Until Discontinued, Remove old patch before applying new patch. This patch may contain metal and is not compatible with MRI. Notify radiology of patch location upon arrival to MRI. And cloNIDine patch placement confirmationJump to med Transdermal, 2 TIMES DAILY, First dose on Marlin 09/02/22 at 0900, Until Discontinued, Patient has a patch to be confirmed on transition to inpatient and 2 times daily. documented in this encounter Care Teams Marketing And Communications Officer Relationship Specialty Start Date End Date Diana Mao MD [address] [place] [address] PCP - General 08/05/17 06/14/23 documented as of this encounter
--- OUTSIDE RECORDS SUMMARY | 2024-10-15 16:33 | XMS_ITS | Encounter Summary ---
Author Organization [facility] Address [address] [place] [address] Care Team Providers Care Private Branch Exchange Repairer Name Role Phone Diana Mao MD Primary Care Provider [phone] Encounter Details Date Type Department Care Team (Late Contact Info) Description 11/30/2021 Orders Only [facility] [address] [place] [address], [place] [id number] Diana Mao MD [address] [place], [place] [address] [address] Itchy eyes Social History Tobacco Use Types Packs/Day Years [...] on file documented as of this encounter Plan of Treatment Upcoming Encounters Date Type Department Care Team (Late st Contact Info) Description 12/11/2024 10:30 AM 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 Appointment [facility] [address] [facility], [address] [address] Jarett Reinoso MD [address] [place] [id number] Christine Benitez MD [address] [place] [address] Keyshawn Krueger MD [address] [place] [address] Armando Ferro, [address] [id number] documented as of this encounter Visit Diagnoses Diagnosis Itchy eyes- Primary Other ill-defined disorder of eye documented in this encounter Care Teams Private Branch Exchange Repairer Relationship Specialty Start Date End Date Diana Mao MD [address] [place] [address] PCP - General 08/05/17 06/14/23 documented as of this encounter
--- OUTSIDE RECORDS SUMMARY | 2024-10-15 16:33 | XMS_ITS | Encounter Summary ---
Author Organization [facility] Address [address] [facility] [address] Care Team Providers Care Medical Record Librarian Name Role Phone Diana Mao MD Primary Care Provider [phone] Reason for Visit * Reason Comments Diarrhea ongoing Encounter Details Date Type Department Care Team (Late st Contact Info) Description 03/08/2022 4:30 PM CDT Office Visit [facility] [address] [place] [address], [place] [phone] Diana Mao MD [address] [place] [address] Diarrhea, unspecified type (Primary Dx) Social History Tobacco Use Types Packs/Day Years Used Date Smoking Tobacco: Former Cigarettes 1 18 0 10/31/1965 - 10/31/1983 Smokeless Tobacco: Never Alcohol Use Standard Drinks/Week Comments Yes 0.8 (1 standard drink = 0.6 oz p ure alcohol) PHQ-2 Answer Date Recorded PHQ2 TOTAL SCORE 0 03/08/2022 Sex and Gender Information Value Date Recorded Sex Assigned at Not on file Gender Identity Not on file Sexual Orientation Not on file documented as of this encounter Last Filed Vital Signs Vital Sign Reading Time Taken Comments Blood Pressure 132/86 03/08/2022 5:17 PM CDT Pulse 71 03/08/2022 5:17 PM CDT Temperature 36.2 ??C (97.2 ??F) 03/08/2022 5:15 PM CD T Respiratory Rate - - Oxygen Saturation 98% 03/08/2022 5:17 PM CDT Inhaled Oxygen Concentration - - Weight 74.3 kg (163 lb 12.8 oz) 03/08/2022 5:15 PM CDT Height 172.7 cm (5' 8 ) 03/08/2022 5:15 PM CDT Body Mass Index 24.91 03/08/2022 5:15 PM CDT documented in this encounter Patient Instructions * Patient Instructions* Nelly Rodriguez - 03/08/2022 4:56 PM CDT BRING YOUR MEDICATIONS TO EVERY VISIT PLEASE For appointments, call us at [phone] and select option 1 or send a Cirqle message. PLEASE ARRIVE TO YOUR APPOINTMENTS at least 20-30 minutes before your schedule visit time. NEED AN INSURANCE REFERRAL from us - contact [phone] To request refills, please contact your pharmacy who will reach out to us. If you have changes to your refill prescription, you will need to contact us directly at [phone] and select option 3 orsend your doctor a Cirqle message. We request that all prescription refills be requested during regular office phone hours. If your prescription requires a prior authorization, it may take several days for us to get approval from your[employer] company before we can refill your prescription. Call your pharmacy first to confirm if there are any refills on file. Please do not wait until you are completely out to prevent any interruption in your medication. Normal business hours are from 8:00 am to 4:30 pm Tuesday through Tuesday. Our fax number is [phone]. If you have been seen anyplace outside of [facility], please have your records and test results [...] day are given to the Geriatric physician television servicer. Please call [phone] and identify yourself as a patient in our practice needing to speak to Geriatric Medicine. The fire alarm operator will contact the physician television servicer. You can generally expect a return call within 30 minutes. On weekends, physicians are seeing hospitalized patients and there may be a longer wait. Test and laboratory results: Our practice typically reports lab and test results through letters orMyChart, the [facility] online patient portal. Please allow 5 days from when your tests are completed to receive the results. IF GOING TO [facility] or [facility]--PLEASE TAKE LAB ORDER WITH YOU !! If you did not complete your labs at a [facility] facility or at a commercial lab ([facility]) then we may not have received the results. Please contact the lab and request that they are faxed to us([phone]). For information related to COVID-19, please visit the cdc website at www.cdc.gov. [facility]'s missed appointment policy is: - Patients with 3 consecutively missed appointments OR 3 missed appointments in a 12 month period may be asked to seek consultation outside of [facility]. - A missed appointment is defined as: Arriving to a scheduled appointment too late to be seen (Patients who arrive to clinic later than their scheduled appointment time may not be seen) PLEASE ARRIVE 20-30 minutes before your schedule visit time. Not showing up for an appointment An appointment cancelled less than 24 hours in advance OUR ADDRESS: [facility], [address] [place], [place] [id number] documented in this encounter Progress Notes * Diana Mao MD - 03/08/2022 5:39 PM CDT Patient Name: Kirsty Rea Date: March 08, 2022 Weight: Wt Readings from Last 2 Encounters: 03/08/22 163 lb 12.8 oz (74.3 kg) 12/28/21 172 lb 6.4 oz (78.2 kg) Patient Vitals for the past 48 hrs: Temp Pulse BP 03/08/22 1717 -- 71 132/86 03/08/22 1715 97.2 ??F (36.2 ??C) 60 128/88 Complaint: Has had loose stool on and off since last fall, past two weeks severe diarrhea leading to fecal incontinence. (I)History of Present Illness/Interval History (Document L3=more than 1; L4/5=more than 4 elements)(Note onset, duration, location, quality, radiation, severity, timing, context, modifying factors, assoc. symptoms): No prodromal illness. No N/V fever/ no cough, no pain, no cramping. Insensate loss of stool withoutfeeling of need to void. No sense of need to urinate either.,just runs out. No injury no back pain.Watery, reddish brown, not blood 4-5x/d Urinary incontinence Assessment: See HPI Fall Assessment: No falls (II) Current Medications: Current Outpatient Medications: ??? acetaminophen (TYLENOL) 500 MG capsule, Take 500 mg by mouth every 4 hours as needed for Fever or Pain, Disp: , Rfl: ??? cholestyramine (QUESTRAN) 4 g packet, Take 1 (one) packet by mouth 2 times daily for 30 days Ifnot effective after 2 days, may take 2 pkts bid., Disp: 60 packet, Rfl: 0 ??? Glycerin (OASIS TEARS PLUS PF OP), , Disp: , Rfl: ??? hydroCHLOROthiazide (MICROZIDE) 12.5 MG capsule, Take 1 (one) capsule by mouth once daily, Disp: 90 capsule, Rfl: 3 ??? labetalol (NORMODYNE; TRANDATE) 200 MG tablet, 1 tablet 2 times daily, Disp: , Rfl: ??? labetalol (NORMODYNE; TRANDATE) 200 MG tablet, Take 1 (one) tablet by mouth 2 times daily, Disp: 180 tablet, Rfl: 3 ??? Multiple Vitamins-Minerals (ICAPS AREDS 2 PO), , Disp: , Rfl: ??? NIFEdipine CR 24hr (ADALAT CC) 90 MG tablet, Take 1 (one) tablet by mouth once daily for 90 days, Disp: 90 tablet, Rfl: 2 ??? NIFEdipine CR osmotic 24hr (PROCARDIA-XL) 90 MG tablet, TAKE 1 TABLET ONE TIME EACH DAY, Disp: , Rfl: ??? olopatadine (PATADAY) 0.2 % ophthalmic solution, Instill 1 (one) drop into both eyes once daily, Disp: 2.5 mL, Rfl: 0 ??? [place]-3 Fatty Acids (FISH OIL) 1200 MG, , Disp: , Rfl: ??? oxybutynin (DITROPAN) 5 MG tablet, TAKE 1 TABLET BY MOUTH EVERY DAY, Disp: 90 tablet, Rfl: 1 ??? RESTASIS 0.05 % ophthalmic suspension, , Disp: , Rfl: ??? triamcinolone acetonide (KENALOG) 0.1 % cream, APPLY TO RASH ON BACK AND BODY TWICE A DAY NEEDED. AVOID FACE., Disp: 45 g, Rfl: 0 ??? XIIDRA 5 % opthalmic solution, , Disp: , Rfl: (III) Past Medical History: Diagnosis Date ??? CKD (chronic kidney disease) stage 3, GFR 30-59 ml/min proteinuria ??? HTN (hypertension), benign ??? Hyperparathyroid bone disease s/p surgery ??? Morphea ??? Osteopenia Past Surgical History: Procedure Laterality Date ??? Appendectomy ??? Breast Reduction ??? Cholecystectomy, Laparoscopic ??? HX FRACTURE TX ??? OOPHORECTOMY 1971 ??? Parathyroidectomy 1999 ETOH: none Tobacco: none Social History Socioeconomic History ??? Marital status: Single Spouse name: Not on file ??? Number of children: Not on file ??? Years of education: Not on file ??? Highest education level: Not on file Occupational History ??? Not on file Tobacco Use ??? Smoking status: Former Smoker Packs/day: 1.00 Start date: 10/31/1965 Quit date: 10/31/1983 Years since quittin.3 ??? Smokeless tobacco: Never Used Vaping Use [...] Not on file (IV) Review of Systems: 10 systems negative except for chief complaint, and loss smell several years ago. Test Results reviewed and discussed with pt: N/A (V) Physical Examination: BP 132/86 (BP SITE: LEFT ARM, BP POSITION: STANDING, BP CUFF SIZE: 11) Pulse 71 Temp 97.2 ??F (36.2??C) (Temporal) Ht 5' 8 (1.727 m) Wt 163 lb 12.8 oz (74.3 kg) SpO2 98% BMI 24.91 kg/m2 9# weight loss General: WDWN HEENT: pharynx clear, teeth: NAD, hearing intact, EOMI Neck: NAD Lungs: CTA Heart: RRR Breasts: Normal Abdomen: soft, non-tender, BS normal Genitals/Rectal: not done (late appointment, son accompanied) Neurological: Alert/Oriented: x 3, tremors absent, CN II-XII intact Musculoskeletal: Gait: normal gait, Extremities: no CCE 10 Gram Monofilament, Planter Surfaces: N/A Skin: normal Pressure ulcers: No A+OX4, euthymic () Assessment and Plan: No exposure to sick contacts, no antibiotics. No carry-out foods, no N?V or associated symptoms, noback pain, no change in gait. I am concerned by the sudden loss of both bowel and bladder control with insensate incontinence of both. Questran appears to have somewhat slowed. Comprehensive stool studies. Abd pelvis CT also not aimed at spine, may also see lumbo sacral spine possible neurological involvement? Diarrhea, unspecified type - Plan: COMPREHENSIVE METABOLIC PANEL, CBC WITH DIFFERENTIAL, LIPASE BLOOD, FAT QUALITATIVE FECES RANDOM, LACTOFERRIN FECAL QUALITATIVE, OCCULT BLOOD FECES, OSMOLALITY FECES, CULTURE STOOL PANEL, HELICOBACTER PYLORI ANTIGEN FECES, PANCREATIC ELASTASE FECES, Ref to GI [facility]enterology - [facility], CT ABDOMEN PELVIS W CONTRAST documented in this encounter Plan of Treatment Upcoming Encounters Date Type Department Care Team (Late st Contact Info) Description 12/11/2024 10:30 AM LITHOPONE MILL WORKER Appointment [facility] [address] [facility], [address] [place] [address] Jarett Reinoso MD [address] [place], [place] [phone] Christine Benitez MD [address] [place] [phone] Keyshawn Krueger MD [address] [place], [place] [phone] [place] [address] [address] Scheduled Orders Name Type Priority Associated Diagnoses Orde r Schedule CULTURE STOOL PANEL Microbiology Routine Diarrhea, unspecified type Ordered: 03/08/2022 documented as of this encounter Procedures Procedure Name Priority Date/Time Associated Diagnosis Comments CBC W AUTO DIFFERENTIAL 03/09/2022 1:12 PM CDT COMPREHENSIVE METABOLIC PANEL 03/09/2022 1:12 PM CDT LIPASE BLOOD 03/09/2022 1:12 PM CDT documented in this encounter Results * LIPASE BLOOD (03/09/2022 1:12 PM CDT) Lipase 35 7 - 60 U/L [facility] Comment: REPORT COMMENT: VARIFIED ALL INFO FASTING:NO COLLECTION KIT GIVEN TO PATIENT. PATIENT ADVISED Test Performed at: [facility] [facility] [address] [place], [place] ??[phone] CECILIA FARIAS DO,MPH 03/09/2022 1:1 2 PM CDT 03/09/2022 1:17 PM CDT Diana Mao MD LAB - CHEMISTRY PATRICIA CASIANO [facility] Organization Address City/State/ZIP Co de Phone Number [facility] [address] [place] [address] * (ABNORMAL) CBC WITH DIFFERENTIAL (03/09/2022 1:12 PM CDT) White Blood Cell Count 5.1 3.8 - 10.8 Thousand/ uL [facility] RBC 3.01(L) 3.80 - 5.10 Million/u L [facility] Hemoglobin 8.5(L) 11.7 - 15.5 g/dL [facility] Hematocrit 26.6(L) 35.0 - 45.0 % [facility] MCV 88.4 80.0 - 100.0 fL [facility] MCH 28.2 27.0 - 33.0 pg [facility] MCHC 32.0 32.0 - 36.0 g/dL [facility] RDW 13.2 11.0 - 15.0 % [facility] Platelet Count 221 140 - 400 Thousand/ uL [facility] MPV 9.6 7.5 - 12.5 fL [facility] Neutrophil Absolute 2550 1500 - 7800 cells/uL [facility] Absolute Bands [facility] Metamyelocytes Absolute [facility] Myelocytes Absolute [facility] Absolute Prolymphocytes [facility] Lymphocytes Absolute 1642 850 - 3900 cells/uL [facility] Absolute Monocytes 607 200 - 950 cells/uL [facility] Eosinophils Absolute 260 15 - 500 cells/uL [facility] Basophils Absolute 41 0 - 200 cells/uL [facility] Absolute Blasts [facility] nRBC Absolute [facility] Granulocytes % 50 % [facility] Band Neutrophil [facility] Metamyelocytes [facility] Myelocytes [facility] Promyelocytes [facility] Lymphocytes % 32.2 % [facility] Lymphocyte Reactive [facility] Monocytes % 11.9 % [facility] Eosinophils % 5.1 % [facility] Basophils % 0.8 % [facility] Comment: REPORT COMMENT: VARIFIED ALL INFO FASTING:NO COLLECTION KIT GIVEN TO PATIENT. PATIENT ADVISED Test Performed at: [employer] [address] [place], [place] ??[phone] CECILIA FARIAS DO,MPH Blasts [facility] nRBC [facility] Comments [facility] Comment: Test Performed at: [employer] [address] [place], [place] ??[phone] CECILIA FARIAS DO,MPH 03/09/2022 1:12 PM CDT 03/09/2022 1:17 PM CDT Diana Mao MD LAB - HEMATOLOGY ORD ERAPAM Performing Organization Address City/[facility]/ZIP Co de Phone Number [facility] [address] [place] [address] * (ABNORMAL) COMPREHENSIVE METABOLIC PANEL (03/09/2022 1:12 PM CDT) Glucose 99 65 - 139 mg/dL [facility] Comment: ? Non-fasting reference interval BUN 65(H) 7 - 25 mg/dL [facility] Creatinine 2.74(H) 0.60 - 0.88 mg/dL [facility] Comment: For patients >49 years of age, the reference limit for Creatinine is approximately 13% higher for people identified as -[place]. eGFR by MDRD 16(L) > OR = 60 mL/min/1. 73m2 [facility] eGFR by MDRD 18(L) > OR = 60 mL/min/1. 73m2 [facility] BUN/Creatinine Ratio 24(H) 6 - 22 (calc) [facility] Sodium 140 135 - 146 mmol/L [facility] Potassium 3.9 3.5 - 5.3 mmol/L [facility] Chloride 109 98 - 110 mmol/L [facility] CO2 21 20 - 32 mmol/L [facility] Calcium 8.7 8.6 - 10.4 mg/dL [facility] Protein Total 5.4(L) 6.1 - 8.1 g/dL [facility] Albumin 3.6 3.6 - 5.1 g/dL [facility] Globulin Total 1.8(L) 1.9 - 3.7 g/dL (calc) [facility] Albumin/Globulin Ratio 2.0 1.0 - 2.5 (calc) [facility] Bilirubin Total 0.3 0.2 - 1.2 mg/dL [facility] Alkaline Phosphatase 72 37 - 153 U/L [facility] AST 14 10 - 35 U/L [facility] ALT 12 6 - 29 U/L [facility] Comment: Test Performed at: [facility] [address] ??[phone] CECILIA FARIAS DO,MPH 03/09/2022 1:12 PM CDT 03/09/2022 1:17 PM CDT Diana Mao MD LAB - CHEMISTRY PATRICIA CASIANO [facility] [address] [place] [address] documented in this encounter Visit Diagnoses Diagnosis Diarrhea, unspecified type- Primary documented in this encounter Care Teams Medical Record Librarian Relationship Specialty Start Date End Date Diana Mao MD [address] [place] [address] PCP - General 08/05/17 06/14/23 documented as of this encounter
--- OUTSIDE RECORDS SUMMARY | 2024-10-15 16:33 | XMS_ITS | Encounter Summary ---
Author Organization [facility] Address [address] [facility] [place] [address] Care Team Providers Care Yarn Dyer Name Role Phone Diana Mao MD Primary Care Provider [phone] Reason for Visit * Reason Onset Date Comments MEDICATION REFILL 03/30/2022 Encounter Details Date Type Department Care Team (Late st Contact Info) Description 03/30/2022 Refill [facility] [address] [place] [address], [facility] [place] [phone] Diana Mao MD [address] [place] [address] MEDICATION REFILL Social History Tobacco Use Types Packs/Day Years [...] * Telephone Encounter - Partha Seymour - 03/30/2022 11:35 AM CDT Refill Request Kirsty Rea JUNG: 03/08/22 NOV scheduled: 04/08/22 LRF: 03/03/22 Qty Disp: 60 PACKETS # of refills: 0 Allergies: Allergies Allergen Reactions ??? Ramipril Other Other reaction(s): Other (See Comments) Kidney Damage Kidney Damage Pended Medication Order: Requested Prescriptions Pending Prescriptions Disp Refills ??? cholestyramine (QUESTRAN) 4 g packet 60 packet 0 Sig: Take 1 (one) packet by mouth 2 times daily for 30 days If not effective after 2 days, may take2 pkts bid. 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 Appointment [facility] [address] [facility] [address] [place] [address] Jarett Reinoso MD [address] [place], [place] [phone] Christine Benitez MD [address] [place] [phone] Keyshawn Krueger MD [address] [place], [place] [address] [place] [address] [phone] documented as of this encounter Visit Diagnoses Not on filedocumented in this encounter Care Teams Yarn Dyer Relationship Specialty Start Date End Date Diana Mao MD [address] [place] [address] PCP - General 08/05/17 06/14/23 documented as of this encounter
--- OUTSIDE RECORDS SUMMARY | 2024-10-15 16:33 | XMS_ITS | Encounter Summary ---
Author Organization [facility] Address [address] [facility] [place] [address] Care Team Providers Care Needle Polisher Name Role Phone Diana Mao MD Primary Care Provider [phone] Reason for Visit * Reason Onset Date Comments Question 03/01/2022 Encounter Details Date Type Department Care Team (Late st Contact Info) Description 03/01/2022 Telephone [facility] [address] [place] [address], [place] [phone] Diana Mao MD [address] [place] [address] Question Social History Tobacco Use Types Packs/Day Years [...] encounter Miscellaneous Notes * Telephone Encounter - Diana Mao MD - 03/03/2022 2:29 PM CDT Pt c/o 10 or so days of diarrhea, Exposures to other cases. 3x day, watery, no cramps, no tenesmus, does not wake her from sleep, has had urgency with fecal incontinence. Cannot tell me what color it is or whether odor has changed. Does not sound infectious. Does not sound possibly malabsorption. 1. Advised to go to urgent care for labs. Send me the report. 2. Questran for symptomatic relief. * Telephone Encounter - Partha Seymour - 03/01/2022 2:13 PM CDT Pt states that she isn't feel well enough to come to her appointment. She wants to know if she could still get a referral for a colonoscopy? Pt would like a call from you. She can be reached at [phone]. Please advise. documented in this encounter Plan of Treatment Upcoming Encounters Date Type Department Care Team (Late st Contact Info) Description 12/11/2024 10:30 AM BREAD BAKER Appointment [facility] [address] [facility], [address] [place] [address] Jarett Reinoso MD [address] [place], [place] [phone] Christine Benitez MD [address] [place] [address] Keyshawn Krueger MD [address] [place], [place] [phone] Armando Ferro, [address] [address] [address] documented as of this encounter Visit Diagnoses Not on filedocumented in this encounter Care Teams Needle Polisher Relationship Specialty Start Date End Date Diana Mao MD [address] [place] [address] PCP - General 08/05/17 06/14/23 documented as of this encounter
--- OUTSIDE RECORDS SUMMARY | 2024-10-15 16:33 | XMS_ITS | Encounter Summary ---
Author Organization [facility] Address [address] [facility] [place] [address] Care Team Providers Care Assistant Technician Name Role Phone Diana Mao MD Primary Care Provider [phone] Reason for Visit * Auth/Cert Specialty Diagnoses / Procedures Referred By Contac t Referred To Contact Diagnoses spontan head bleed Referral ID Status Reason Start Date Expiration Date Visits Re quested Visits Authorized [id number] 1 1 Encounter Details Date Type Department Care Team (Late st Contact Info) Description 08/25/2022 11:43 AM CDT Anesthesia Event [facility] IVR [address] [place] [phone] Jayna Masters MD [address] [facility] [place] [phone] Holli Bennett Anes Asst Anesthesia Record Procedure Summary Procedure Name Responsible Anesthesiologist Anesthesia Start Time Anesthesia Stop Time IR CENTRAL LINE INSERT TUNNEL Jayna Masters MD 08/25/22 1143 08/25/22 1256 Events Date Time Event Comment 08/25/2022 1143 An Start PT EVALUATED IN THE ROOM 1143 An Start Data 1143 Pt In Room 1143 Quick Note Pt transported from floor to IR with o2 15l/min via venturi. VS stable. 1155 1155 PT Reassessment 1202 Induction 1203 Anes Ready 1207 Timeout Anesthesia part icipated in timeout at the time documented in the record by nursing. 1208 Proc Start 1235 Proc Stop 1235 An Emergence 1244 an stop data 1244 Electnc Sig This record is electronically signed by the providers listed under staff. 1244 ANPTO2 1244 Pt out of Room 1256 An Stop Meds Name Total propofol 200mg/20mL injection 20 mg propofol 500 mg/50 mL 107.1 mg Isolyte-S infusion 75 mL * Agents Name Insp. N2O Exp. N2O O2 Flow - Auxiliary O2 * Blood No blood administrations on file. Lines, Drains, and Airways Type Details Placement Removal Urethral Catheter 08/21/22; 2036; Hazel RN; Double-lumen / 2-Way; No; 10 mL; Yes, Seal Intact; 1; Well; 08/25/22; 1434; Per order 08/21/222036 by Hazel [address] RN 08/25/22 1434 by Massiel Cox RN Gastric Tube 08/22/22; 1527; Boris Ambrose RN; NGT; Nostril/Nare, Left; 16; Moderate; 09/01/22; 1400; SARA RYAN RN; Per order 08/22/22 1527 by Valery Ambrose RN 09/01/22 1400 by Sara Ryan RN Other Wound 08/22/22; 1730; Medial; Sacral/Coccyx; 09/10/22; 0035 08/22/22 1730 by Radha Anguiano RN 09/10/22 0035 by Generic, Auto Release Peripheral IV Date: 08/22/22; Time: 1800; Orientation: Distal, Posterior, Right 08/22/22 1800 by Radha Anguiano RN 08/27/22 0500 by Jaclyn Ballard RN Peripheral IV Date: 08/23/22; Time: 0400; Orientation: Anterior, Left, Medial; Placed By: Arcadio BOSS 08/23/22 0400 by Kinsey Rene RN 09/10/22 0035 by Generic, Auto Release Central Line Date: 08/23/22; Time: 1400; Orientation: Right; Lumens: Triple 08/23/22 1400 by Massiel Rain RN 08/25/22 1228 by Sho Rogel, hop grower Tunneled Catheter 08/25/22; 1222; Dr. Ward; Internal Jugular; Right; Dual Lumen; 03/23/23 08/25/22 1222 by Sho Rogel RN 03/23/23 0000 by Dinah Jean-Baptiste RN documented in this encounter Social History [...] as of this encounter Progress Notes * Jayna Masters MD - 08/25/2022 4:00 PM CDT ANESTHESIA POSTOP EVALUATION NOTE Procedure: IR CENTRAL LINE INSERT TUNNEL Kirsty Rea is a 81 year old female Patient Vitals for the past 6 hrs: BP Temp Pulse Resp SpO2 Pain Rating Score #1 Pain Scale/Observation Pulse - (SPO2/Cuff) 08/25/22 1015 131/59 -- 82 -- 95 % -- -- 83 bpm 08/25/22 1030 128/62 -- 80 -- 96 % -- -- 83 bpm 08/25/22 1045 121/61 -- 78 -- 94 % -- -- 79 bpm 08/25/22 1100 136/68 -- 80 -- 95 % -- -- 78 bpm 08/25/22 1115 149/69 -- 82 -- 95 % -- -- 82 bpm 08/25/22 1130 146/68 -- 85 -- 96 % -- -- 85 bpm 08/25/22 1145 -- -- -- -- -- 0 N -- 08/25/22 1200 -- -- -- -- -- 0 N -- 08/25/22 1300 152/77 98.7 ??F (37.1 ??C) 87 20 95 % -- -- -- 08/25/22 1400 125/70 98.8 ??F (37.1 ??C) 84 23 94 % 0 N -- 08/25/22 1500 145/81 -- 73 24 96 % -- -- -- Anesthesia Type: general * No Diagnosis Codes entered * Mental Status: awake, alert, neurologic status has returned to preoperative level and sufficiently recovered from acute administration of anesthesia to participate in the evaluation Respiratory Function: natural Cardiac Function: stable Postop Pain: acceptable to the patient Postop Hydration: adequate Postop Nausea: none Assessment: no apparent anesthetic complications, patient tolerated procedure well and no evidence of recall Patient Disposition: Follow Up Needed COMPLICATIONS: No notable events documented. * Jayna Masters MD - 08/25/2022 10:21 AM CDT ANESTHESIA PREOPERATIVE EVALUATION NOTE Procedure: IR CENTRAL LINE INSERT TUNNEL Vitals: Patient Vitals for the past 6 hrs: BP Temp Pulse Resp SpO2 Pain Rating Score #1 08/25/22 1000 138/56 -- 85 -- 96 % -- 08/25/22 0945 141/69 -- 84 -- 96 % -- 08/25/22 0930 136/57 -- 86 -- 95 % -- 08/25/22 0915 156/59 -- 92 -- 92 % -- 08/25/22 0900 161/66 -- 92 -- 92 % -- 08/25/22 0845 (!) 182/71 -- -- -- 92 % -- 08/25/22 0840 -- -- 96 10 93 % 0 08/25/22 0838 (!) 190/79 -- -- -- -- -- 08/25/22 0830 (!) 190/79 -- 86 30 -- -- 08/25/22 0800 139/63 98.9 ??F (37.2 ??C) 87 25 93 % 0 08/25/22 0700 146/59 -- 80 21 95 % -- 08/25/22 0607 151/63 -- 90 -- -- -- 08/25/22 0600 154/60 -- 89 18 95 % 0 08/25/22 0530 154/63 -- -- -- -- -- 08/25/22 0506 167/79 -- -- -- -- -- 08/25/22 0500 163/73 -- 84 18 95 % -- LMP: No LMP recorded. Patient is postmenopausal. OB Status: Postmenopausal ANESTHESIA PRE-EVALUATION NOTE History of Present Illness: 81 y/o F with past medical history of HTN, CKD3, Morphea and osteopenia transferred from [facility] to [facility] Neuro ICU for pontine intraparenchymal hemorrhage. Patient reports developing generalized weakness and nausa/vomiting this afternoon. She had several episodes of vomiting but denies ALDANA,CP, speech changes, vision or sensory changes. Reports photosensitivity. 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 08/25/2022 - ??81 year old??female??w/ hx of HTN,??CKD stage IV-V,??morphea, who presented to [facility] for worseningkidney function, cre peaked to 4.65 on 08/19. requiring hemodialysis.? Pt upgraded to ICU for hypertensive emergency requiring Cardene gtt in the setting of acute renal failure. 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 - Continue weaning supplemental O2 as tolerated. - Continue gradual correction of BP with Cardene. - Clinical picture does not support COPD exacerbation, will d/c systemic steroids and monitor. - Switch abx to Unasyn to cover for presumed aspiration pneumonia. - Delirium precautions: Provide frequent re-orientation, minimize sedating medications, ensure paincontrol, enable good sleep hygiene, encourage early mobilization as tolerated. ?? Physical Exam: Orientation X3 Airway/Mallampati Score: III Mouth Opening Distance: 3 fingerwidths Neck ROM: full TM Distance: > 3 FB Heart: normal - S1 S2 Lungs: clear to ausculation bilaterally (PT ON VENTI MASK) Abdomen Exam: obese and distended Physical Exam Additional Comments: Pt is in dialysis arriving from the room to IR CHART REVIEW ANESTHESIA PLAN ASA Score: 4 NPO Status: No liquids within 2 hours and No solids for 8 hours Anesthesia Plan: MAC and TIVA (BACK UP GA WITH ETT) Planned Induction: intravenous Planned Postop Destination: PACU Anesthetic plan was discussed with: patient Anesthetic Plan discussion was: Consented The patient's procedural Anesthetic Plan was discussed with the BELT REPAIRER. BMI, Height, Weight Tobacco History Estimated body mass index is 28.16 kg/m?? as calculated from the following: Height as of this encounter: 1.727 m (5' 7.99 ). Weight as of this encounter: 84 kg (185 lb 3 oz). Social History Tobacco Use Smoking Status Former ??? Packs/day: 1.00 ??? Types: Cigarettes ??? Start date: 10/31/1965 ??? Quit date: 10/31/1983 ??? Years since quittin.8 Smokeless Tobacco Never Alcohol History Drug History Social History Substance and Sexual Activity Alcohol Use Yes ??? Alcohol/week: 0.8 standard drinks Social History Substance and Sexual Activity Drug Use No Outpatient Medications: Inpatient Medications: No outpatient medications have been marked as taking for the 08/15/22 encounter (Hospital Encounter). Current Facility-Administered Medications Medication Dose Last Admin ??? 0.9% NaCl 3 mL 3 mL at 08/25/22 0414 And ??? 0.9% NaCl 1-10 mL 10 mL at 08/22/22 0343 ??? acetaminophen 500 mg 500 mg at 08/23/22 1041 ??? albuterol HFA 2 puff 2 puff at 08/24/22 1547 ??? albuterol-ipratropium 3 mL 3 mL at 08/25/22 0835 ??? amLODIPine 10 mg 10 mg at 08/25/22 0815 ??? ampicillin-sulbactam 3 g Stopped at 08/24/222040 ??? cloNIDine 0.2 mg 0.2 mg at 08/25/22 0815 ??? epoetin Deyanira-EPBX (Retacrit) injection 7,000 Units 7,000 Units at 08/24/22 1536 ??? heparin 5,000 Units 5,000 Units at 08/25/22 0815 ??? hydrALAZINE 15 mg 15 mg at 08/25/22 0413 ??? hydrALAZINE 100 mg 100 mg at 08/25/22 0915 ??? labetalol 200 mg 200 mg at 08/25/22 0607 ??? labetalol 20 mg 20 mg at 08/25/22 0334 ??? losartan 50 mg 50 mg at 08/25/2215 ??? niCARdipine 0-15 mg/hr 5 mg/hr at 08/25/22 0839 ??? polyethylene glycol 3350 17 g 17 g at 08/25/2214 ??? senna 17.2 mg 17.2 mg at 08/25/22 0814 ??? sodium - potassium phosphates 1 tablet 1 tablet at 08/25/22813 Allergies: Allergies Allergen Reactions ??? Ramipril Other Other reaction(s): Other (See Comments) Kidney Damage Kidney Damage Relevant Problems No relevant active problems Problem List: Patient Active Problem List Diagnosis Date Noted ??? Pleural effusion 08/23/2022 Priority: Not Prioritized ??? Aspiration pneumonia (CMS/HCC) 08/23/2022 Priority: Not Prioritized ??? Dysphagia 08/23/2022 Priority: Not Prioritized ??? Hyponatremia 08/23/2022 Priority: Not Prioritized ??? Elevated troponin 08/23/2022 Priority: Not Prioritized ??? Hypoalbuminemia 08/23/2022 Priority: Not Prioritized ??? High anion gap metabolic acidosis 08/23/2022 Priority: Not Prioritized ??? Normocytic anemia 08/23/2022 Priority: Not Prioritized ??? Acute decompensated heart failure (CMS/HCC) 08/23/2022 Priority: Not Prioritized ??? Respiratory failure with hypoxia (CMS/HCC) 08/23/2022 Priority: Not Prioritized ??? Hypertensive emergency 08/23/2022 Priority: Not Prioritized ??? Intracranial hemorrhage, nontraumatic ([facility]) 08/15/2022 Priority: Not Prioritized ??? Cervicalgia 04/06/2019 [...] Not Prioritized ??? Acute renal failure (ARF) ([facility]) 07/14/2015 Priority: Not Prioritized ??? Hypertensive chronic [...] kidney disease) stage 3, GFR 30-59 ml/min ([facility]) proteinuria ??? HTN (hypertension), benign ??? 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 Morphea ??? Osteopenia Surgical History: Past Surgical History: Procedure Laterality Date ??? Appendectomy ??? Breast Reduction ??? Cholecystectomy, Laparoscopic ??? HX FRACTURE TX ??? OOPHORECTOMY 1972 ??? 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 Patient is postmenopausal. Postmenopausal OB History Para Term AB Living 2 2 0 0 0 0 SAB IAB Ectopic Multiple Live Births 0 0 0 0 0 # Outcome Date GA Lbr Samuel/2nd Weight Sex Delivery Anes PTL Lv 2 Para 1 Para Covid Vaccine: Lab Results: Recent Labs Base Name 08/25/22 0128 [id number] 123* SPECIMENTYPE Cap Fingerstick Recent Labs Component Name 08/25/22 0338 WBC 8.9 RBC 2.78* HCT 22.7* HGB 7.9* PLTCOUNT 208 MCV 81.7 MCH 28.4 MCHC 34.8 MPV 9.4 Recent Labs Component Name 08/18/22 1952 08/18/22 1430 ABORH A NEG A NEG ABSCG - NEG Recent Labs Component Name 08/22/22 0352 08/21/22 1204 08/19/22 1300 BLOODU - - Negative WBCU - - 11-20* NITRITE - - Negative PROTEINU - - 2+* CREATININEUR 30 - 96 - = values in this interval not displayed. Recent Labs Component Name 08/25/22 0338 POTASSIUM 2.9* CALCIUM 8.5 CO2 29 GLUCOSE 102 BUN 23 CREATININE 1.83* Recent Labs Component Name 08/25/22 0338 MAGNESIUM 1.8 Recent Labs Component Name 08/25/22 0338 PHOS 1.6* Recent Labs Component Name 08/22/22 1801 PH 7.29* PO2 66* PCO2 33* BE -9.8* Recent Labs Component Name 08/25/22 0338 PT 12.3 INR 0.9 Recent Labs Component Name 08/20/22 0250 TSH 4.654 Recent Labs Result Component Current Result Troponin I 0.037 (H) (08/22/2022) Recent Labs Result Component Current Result Anion Gap 16 (08/25/2022) eGFR by CKD-EPI 28 (L) (08/25/2022) documented in this encounter Miscellaneous Notes * Anesthesia Transfer of Care - Holli Bennett Anes Asst - 08/25/2022 12:56 PM CDT ANESTHESIA TRANSFER OF CARE NOTE Today's Date: 08/25/2022 Date of : 1940 Patient: Kirsty Rea * No procedures listed * Surgeon(s): * No surgeons listed * Preop Diagnosis: * No Diagnosis Codes entered * Pre-op Meds (From admission, onward) Start Stop Status Route Frequency Ordered 08/21/22 1210 0.9% NaCl injection 1-10 mL See Hyperspace for full Linked Orders Report. -- Dispensed IK PRN 08/21/22 1210 08/21/22 1400 0.9% NaCl injection 3 mL See Hyperspace for full Linked Orders Report. -- Dispensed IK EVERY 8 HOURS 08/21/22 1210 08/22/22 1349 acetaminophen (Tylenol) tablet 500 mg -- Dispensed Enteral Tube EVERY 4 HOURS PRN 08/22/22 1350 08/20/22 0813 albuterol HFA (Proventil; Ventolin; Proair) 108 (90 Base) MCG/ACT inhaler 2 puff -- Dispensed IN EVERY 6 HOURS PRN 08/20/22 0813 08/22/22 0800 albuterol-ipratropium (Duo-Neb) nebulizer solution 3 mL -- Dispensed IN EVERY 4 HOURS 08/22/22 0721 08/23/22 1330 amLODIPine (Norvasc) tablet 10 mg -- Dispensed Enteral Tube DAILY 08/23/22 1318 08/22/22 2130 ampicillin-sulbactam (Unasyn) 3 g in 0.9% NaCl IV 100 mL IVPB -- Dispensed IV EVERY 24 HOURS 08/22/22 2100 08/22/22 1400 cloNIDine (Catapres) tablet 0.2 mg -- Dispensed Enteral Tube 3 TIMES DAILY 08/22/22 1344 08/17/22 1515 epoetin deyanira-EPBX (Retacrit) injection 7,000 Units -- Dispensed SC EVERY 7 DAYS 08/17/22 1442 08/21/22 1445 heparin injection 5,000 Units -- Dispensed SC 3 TIMES DAILY 08/21/22 1406 08/24/22 2019 heparin lock flush 100 units/ml injection ADS Med Note to Pharmacy: Created by cabinet override 08/25 0829 Dispensed 08/24/22 2019 08/22/22 0847 hydrALAZINE (Apresoline) injection 15 mg -- Dispensed IV EVERY 4 HOURS PRN 08/22/22 0848 08/23/22 1400 hydrALAZINE (Apresoline) tablet 100 mg -- Dispensed Enteral Tube 3 TIMES DAILY 08/23/22 1319 08/24/22 1415 iron sucrose (Venofer) injection 100 mg 08/24 1535 Completed IV ONCE 08/24/22 1349 08/25/22 1202 isolyte-S pH 7.4 infusion -- Sent IV CONTINUOUS PRN 08/25/22 1213 08/22/22 0848 labetalol (Normodyne; Trandate) injection 20 mg -- Dispensed IV EVERY 2 HOURS PRN 08/22/22 0848 08/24/22 1400 labetalol (Normodyne; Trandate) tablet 200 mg -- Dispensed Enteral Tube EVERY 8 HOURS 08/24/22 1151 08/25/22 1208 lidocaine (Xylocaine) 1 % injection 08/25 1208 Completed SC ONCE PRN 08/25/22 1225 08/24/22 1230 losartan (Cozaar) tablet 50 mg -- Dispensed Enteral Tube DAILY 08/24/22 1151 08/22/22 1730 niCARdipine (Cardene) 20 mg in 0.9% NaCl 200 mL infusion -- Dispensed IV CONTINUOUS 08/22/22 1719 08/23/22 0900 polyethylene glycol 3350 (Miralax) packet 17 g -- Dispensed Enteral Tube DAILY 08/22/22 1344 08/25/22 0645 potassium chloride (Klor-Con) packet 40 mEq 08/25 0651 Completed PO ONCE 08/25/22 0627 08/25/22 1202 propofol (Diprivan) infusion -- Sent IV CONTINUOUS PRN 08/25/22 1213 08/25/22 1202 propofol (Diprivan) injection -- Sent IV PRN 08/25/22 1213 08/23/22 0900 senna (Senokot) tablet 17.2 mg -- Dispensed Enteral Tube DAILY 08/22/22 1344 08/25/22 0900 sodium - potassium phosphates (K Phos Neutral) tablet 1 tablet 08/26 0859 Dispensed PO 3 TIMES DAILY 08/25/22 0627 * No Diagnosis Codes entered * . Allergies Allergen Reactions ??? Ramipril Other Other reaction(s): Other (See Comments) Kidney Damage Kidney Damage Vitals: Patient Vitals for the past 3 hrs: BP Pulse SpO2 Pain Rating Score #1 08/25/22 1200 -- -- -- 0 08/25/22 1145 -- -- -- 0 08/25/22 1130 146/68 85 96 % -- 08/25/22 1115 149/69 82 95 % -- 08/25/22 1100 136/68 80 95 % -- 08/25/22 1045 121/61 78 94 % -- 08/25/22 1030 128/62 80 96 % -- 08/25/22 1015 131/59 82 95 % -- 08/25/22 1000 138/56 85 96 % -- Lines, Drains, and Airways Type Details Placement Removal Gastric Tube 08/22/22; 1527; K Halie RN; NGT; Nostril/Nare, Left; 16; Moderate 08/22/22 1527 by Valery Ambrose RN Peripheral IV Date: 08/22/22; Time: 1800; Orientation: Distal, Posterior, Right; Location: Forearm;Gauge: 20 Gauge 08/22/22 1800 by Radha Anguiano RN Peripheral IV Date: 08/23/22; Time: 0400; Orientation: Anterior, Left, Medial; Location: Forearm; Placed By: Arcadio RN; Gauge: 18 Gauge 08/23/22 0400 by Kinsey Ya RN Central Line Date: 08/23/22; Time: 1400; Orientation: Right; Site: Internal Jugular; Lumens: [id number]/24/22 1400 by Massiel Rain RN 08/25/22 1228 by Sho Rogel RN Intraprocedure I/O Totals Intake Isolyte-S infusion 75.00 mL Total Intake 75 mL Output Estimated Blood Loss 5 mL Total Output 5 mL Net Net Volume 70 mL Patient Transfer Location: ICU Transport Airway: spontaneous respirations and supplemental O2 Transport Monitoring: heart rate, continuous pulse oximetry and frequent blood pressure checks Complications: None Handoff Given? Yes Cristina Casillas Asst documented in this encounter Plan of Treatment Upcoming Encounters Date Type Department Care Team (Late st Contact Info) Description 12/11/2024 10:30 AM RAP ARTIST Appointment [facility] Health Vascular Services [address] [facility], [address] [address] Jarett Reinoso MD [address] [place], [place] [id number] Christine Benitez MD [address] [facility] [place] [address] Keyshawn Krueger MD [address] [place], [place] [id number] Armando Ferro, [address] [address] documented as of this encounter Visit Diagnoses Not on filedocumented in this encounter Administered Medications Inactive Administered Medications - up to 3 most recent administrations Medication Order MAR Action Action Date Dose Rate Site isolyte-S pH 7.4 infusion Intravenous, CONTINUOUS PRN, Starting on Tue08/25/22 at 1202, Until Tue08/25/22 at 1256, Anesthesia Intra-op $ New Bag/Syringe 08/25/2022 12:02 PM CDT propofol (Diprivan) infusion Intravenous, CONTINUOUS PRN, Starting on Tue08/25/22 at 1202, Until Tue08/25/22 at 1256, Anesthesia Intra-op Rate Change 08/25/2022 12:10 PM CDT 35 mcg/kg/min 17.64 mL/hr $ New Bag/Syringe 08/25/2022 12:02 PM CDT 50 mcg/kg/min 25 .2 mL/hr propofol (Diprivan) injection Intravenous, PRN, Starting on Tue08/25/22 at 1202, Until Tue08/25/22 at 1256, Anesthesia Intra-op $ Given 08/25/2022 12:02 PM CDT 20 mg documented in this encounter Care Teams Assistant Technician Relationship Specialty Start Date End Date Diana Mao MD [address] [place] [address] PCP - General 08/05/17 06/14/23 documented as of this encounter
--- OUTSIDE RECORDS SUMMARY | 2024-10-15 16:33 | XMS_ITS | Encounter Summary ---
Author Organization [facility] Health Address [address] [place] [address] Care Team Providers Care Aquarium Tank Attendant Name Role Phone Diana Mao MD Primary Care Provider [phone] Reason for Visit * Reason Comments Refill Request Encounter Details Date Type Department Care Team (Late Contact Info) Description 12/24/2021 Refill [facility] [address] [facility] [address] [place] [address] Santiago Mar Che, MD [address] [facility] [address] [place] [address] Refill Request Social History Tobacco Use Types Packs/Day Years [...] Encounters Date Type Department Care Team (Late Contact Info) Description 12/11/2024 10:30 AM SOURCING 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
--- OUTSIDE RECORDS SUMMARY | 2024-10-15 16:33 | XMS_ITS | Encounter Summary ---
Author Organization [facility] Address [address] [place] [address] Care Team Providers Care German Professor Name Role Phone Diana Mao MD Primary Care Provider [phone] Encounter Details Date Type Department Care Team (Late Contact Info) Description 03/23/2022 Orders Only [facility] [address] [place] [address], [place] [address] Diana Mao MD [address] [place], [place] [address] [place] [address] Social History Tobacco Use Types Packs/Day Years [...] (Late Contact Info) Description 12/11/2024 10:30 AM 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 Appointment [facility] Health Vascular Services [address] [facility], [address] [address] Jarett Reinoso MD [address] [place] [address] Christine Benitez MD [address] [place] [address] Keyshawn Krueger MD [address] [place], [place] [id number] Armando Ferro, [address] [place] [address] [address] documented as of this encounter Visit Diagnoses Not on filedocumented in this encounter Care Teams German Professor Relationship Specialty Start Date End Date Diana Mao MD [address] [place] [address] PCP - General 08/05/17 06/14/23 documented as of this encounter
--- OUTSIDE RECORDS SUMMARY | 2024-10-15 16:33 | XMS_ITS | Encounter Summary ---
Author Organization [facility] Health Address [address] [facility] [place] [address] Care Team Providers Care Manager Voice Name Role Phone Diana Mao MD Primary Care Provider [phone] Reason for Visit * Reason Comments Refill Request Encounter Details Date Type Department Care Team (Late Contact Info) Description 12/09/2021 Refill [facility] [address] [facility] [address] [place] [address] Santiago Mar Che, MD [address] [facility] [address] [place] [address] Refill Request Social History Tobacco [...] (Late Contact Info) Description 12/11/2024 10:30 AM 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
--- OUTSIDE RECORDS SUMMARY | 2024-10-15 16:33 | XMS_ITS | Encounter Summary ---
Author Organization [facility] Health Address [address] [place] [address] Care Team Providers Care Acquisition Consultant Name Role Phone Diana Mao MD Primary Care Provider [phone] Yanira Meyers BUILDING EQUIPMENT OPERATOR-STEEL ENGRAVER Primary Care Provid er Reason for Visit * Reason Onset Date Comments Procedure Prior Auth Request 03/19/2022 CT ABDOMEN PELVIS W CONTRAST-DENIAL Encounter Details Date Type Department Care Team (Late st Contact Info) Description 03/19/2022 Telephone [facility] [address] [place] [address] Madai Ortiz Procedure Prior Auth Request (CT ABDOMEN PELVIS W CONTRAST-/DENIAL) Social History Tobacco Use Types Packs/Day Years [...] encounter Miscellaneous Notes * Telephone Encounter - Madai Ortiz - 03/19/2022 11:[address] ABDOMEN PELVIS W CONTRAST Ms. Rea called the office today asking to speak to Debbie.. She received a call from [facility] informing her that this test was DENIED by the [employer].. I told Ms. Rea that I will follow up with Debbie to find out why the test was Denied and ask Debbie to reach out to her some time today.. Pt's CB # [phone] documented in this encounter Plan of Treatment Upcoming Encounters Date Type Department Care Team (Late st Contact Info) Description 12/11/2024 10:30 AM COMMERCIAL LOAN COORDINATOR Appointment [facility] [address], [address] [place] [address] Jarett Reinoso MD [address] [place] [address] Christine Benitez MD [address] [place] [address] Keyshawn Krueger MD [address] [place], [place] [id number] Armando Ferro, [address] [address] documented as of this encounter Visit Diagnoses Not on filedocumented in this encounter Care Teams Acquisition Consultant Relationship Specialty Start Date End Date Diana Mao MD [address] [place] [address] PCP - General 08/05/17 06/14/23 Yanira Meyers, BUILDING EQUIPMENT OPERATOR-STEEL ENGRAVER [address] [place] [address] PCP - General Nurse Practitioner Family 06/15/23 documented as of this encounter
--- OUTSIDE RECORDS SUMMARY | 2024-10-15 16:34 | XMS_ITS | Encounter Summary ---
Author Organization [facility] Address [address] [place] [address] Care Team Providers Care Corporate Strategist Name Role Phone Diana Mao MD Primary Care Provider [phone] Reason for Visit * Reason Onset Date Comments MEDICATION REFILL 03/06/2018 Encounter Details Date Type Department Care Team (Late Contact Info) Description 03/06/2018 Refill [facility] [address] [place] [address] Ced Potter MEDICATION REFILL Social History Tobacco Use Types [...] encounter Miscellaneous Notes * Telephone Encounter - Ced Potter - 03/06/2018 4:38 PM CDT JUNG 02/06/2018 NOV 05/05/2018 documented in this encounter Plan of Treatment Upcoming Encounters Date Type Department Care Team (Late Contact Info) Description 12/11/2024 10:30 AM WOOD HEEL FLAP TRIMMER Appointment [facility] [address], [address] [place] [address] Jarett Reinoso MD [address] [place], [place] [id number] Christine Benitez MD [address] [place] [address] Keyshawn Krueger MD [address] [place] [address] [place] [address] [address] documented as of this encounter Visit Diagnoses Diagnosis Essential (primary) hypertension Unspecified essential hypertension documented in this encounter Care Teams Corporate Strategist Relationship Specialty Start Date End Date Diana Mao MD [address] [place] [address] PCP - General 08/05/17 06/14/23 documented as of this encounter
--- OUTSIDE RECORDS SUMMARY | 2024-10-15 16:34 | XMS_ITS | Encounter Summary ---
Author Organization [facility] Health Address [address] [place] [address] Care Team Providers Care Parts Counter Representative Name Role Phone Diana Mao MD Primary Care Provider [phone] Reason for Visit * Reason Comments Hypertension Encounter Details Date Type Department Care Team (Late st Contact Info) Description 02/06/2018 1:40 PM CDT Office Visit [facility] [address] [place] [address] Diana Mao MD [address] [address] Stage 2 chronic kidney disease (Primary Dx); Essential (primary) hypertension Social History Tobacco Use Types Packs/Day Years [...] Sign Reading Time Taken Comments Blood Pressure 156/80 02/06/2018 2:02 PM CDT Pulse 66 02/06/2018 2:01 PM CDT Temperature 36.2 ??C (97.1 ??F) 02/06/2018 2:01 PM CD T Respiratory Rate 14 02/06/2018 2:01 PM CDT Oxygen Saturation 97% 02/06/2018 2:01 PM CDT Inhaled Oxygen Concentration - - Weight 84.4 kg (186 lb 1.6 oz) 02/06/2018 2:01 P M CDT Height 171.5 cm (5' 7.5 ) 02/06/2018 2:01 PM CDT Body Mass Index 28.72 02/06/2018 2:01 PM CDT documented in this encounter Progress Notes * Diana Mao MD - 02/06/2018 2:45 PM CDT Attending Note: Patient seen and examined with Resident. I confirm the history, physical findings, assessment, and plan as documented. My additions and/or exceptions are noted below: Subjective: Patient who comes rarely and I am really not sure why. She has a adoption counselor who sawrecently, and she says he says something about protein. We have no labs since at her last visit in July 2017 the request wasn't responded to. She appears to have no acute complaint. No past medical history on file. Past Surgical History: Procedure Laterality Date ??? Appendectomy ??? Breast Reduction ??? Cholecystectomy, Laparoscopic ??? HX FRACTURE TX ??? Parathyroidectomy Patient Active Problem List Diagnosis ??? Encounter for general adult medical examination without abnormal findings ??? Localized scleroderma ??? Other specified disorders of bone density and structure, unspecified site ??? Other symptoms and signs involving the musculoskeletal system ??? Hearing loss ??? Hypokalemia ??? Adverse effect of carbonic-anhydrase inhibitors, benzothiadiazides and other diuretics, initialencounter ??? Other specified health status ??? Essential (primary) hypertension ??? Other amnesia ??? Stage 2 chronic kidney disease Current Outpatient Prescriptions Medication ??? labetalol (NORMODYNE; TRANDATE) 200 MG tablet ??? mometasone (ELOCON) 0.1 % cream ??? NIFEdipine CR osmotic 24hr (PROCARDIA-XL) 90 MG tablet ??? hydroCHLOROthiazide (MICROZIDE) 12.5 MG capsule ??? vitamin D3-cholecalciferol (CHOLECACIFEROL) 1000 UNITS tablet ??? aspirin (ASPIRIN) 81 MG tablet No current facility-administered medications for this visit. Allergies Allergen Reactions ??? Ramipril Other Other reaction(s): Other (See Comments) Kidney Damage Kidney Damage Objective: BP 156/80 (BP SITE: LEFT ARM, BP POSITION: STANDING, BP CUFF SIZE: 12) Pulse 66 Temp 97.1 ??F (36.2 ??C) (Oral) Resp 14 Ht 5' 7.5 (1.715 m) Wt 186 lb 1.6 oz (84.4 kg) SpO2 97% BMI 28.72 kg/m2 HEENT has ALDANA CTA RRR 1+edema RLE Assessment & Plan: Stage 2 chronic kidney disease - Plan: CREATININE URINE RANDOM, SODIUM URINE RANDOM, PROTEIN URINE RANDOM QUANTITATIVE, IEP+CATHI URINE RANDOM PROFILE, URINALYSIS W/MICROSCOPIC NO CULTURE Essential (primary) hypertension - Plan: hydroCHLOROthiazide (MICROZIDE) 12.5 MG capsule Note: Patient left without providing requested urine specimen. * Adolfo Jenkins MD - 02/06/2018 2:19 PM CDT Patient Name: Kirsty Rea Date: February 06, 2018 Weight: Wt Readings from Last 2 Encounters: 02/06/18 186 lb 1.6 oz (84.4 kg) 08/05/17 177 lb 14.4 oz (80.7 kg) Patient Vitals for the past 48 hrs: Temp Pulse Resp BP 02/06/18 1402 - - - 156/80 02/06/18 1401 97.1 ??F (36.2 ??C) 66 14 156/84 Complaint: Has no current complaints came for follow up visit (I)History of Present Illness/Interval History (Document L3=more than 1; L4/5=more than 4 elements)(Note onset, duration, location, quality, radiation, severity, timing, context, modifying factors, assoc. symptoms): Patient states that she has been doing well, just have some intermittent unilateral leg selling during the day which subsides in the AM. She has been having pain to the right lower back when she raises her right arm she feels the discomfort. Does-not do regular exercise was a member of the [employer] but changed insurance recently. States that she has lost her hearing aides. Urinary incontinence Assessment: Absence of urinary incontinence Fall Assessment: No falls (II) Current Medications: Current Outpatient Prescriptions: ??? labetalol (NORMODYNE; TRANDATE) 200 MG tablet, Take 200 mg by mouth once daily, Disp: , Rfl: ??? mometasone (ELOCON) 0.1 % cream, as needed, Disp: , Rfl: 2 ??? NIFEdipine CR osmotic 24hr (PROCARDIA-XL) 90 MG tablet, Take 90 mg by mouth once daily, Disp: ,Rfl: ??? vitamin D3-cholecalciferol (CHOLECACIFEROL) 1000 UNITS tablet, Take by mouth once daily, Disp: , Rfl: ??? potassium chloride (KLOR-CON) 20 MEQ tablet, Take 1 tablet by mouth as needed, Disp: , Rfl: ??? vitamin D3-cholecalciferol (CHOLECACIFEROL) 1000 UNITS tablet, Take by mouth DAILY., Disp: , Rfl: ??? potassium chloride (KLOR-CON) 20 MEQ tablet, Take 1 tablet by mouth DAILY., Disp: , Rfl: 3 ??? aspirin (ASPIRIN) 81 MG tablet, Take 81 mg by mouth DAILY., Disp: 100 tablet, Rfl: (III) Past/Interval Medical, Family, Social History(Document L3=0; L4=1; L5=2 or more areas): Change: no change since ETOH: none Tobacco: none Social History Social History ??? Marital status: Single Spouse name: N/A ??? Number of children: N/A ??? Years of education: N/A Occupational History ??? Not on file. Social History Main Topics ??? Smoking status: Former Smoker Packs/day: 1.00 Start date: 10/31/1965 Quit date: 10/31/1983 ??? Smokeless tobacco: Never Used ??? Alcohol use 0.5 oz/week ??? Drug use: No ??? Sexual activity: Not on file Other Topics Concern ??? Not on file Social History Narrative (IV) Review of Systems: General: weight gain Eyes: WNL ENT: WNL Cardiovascular: WNL Pulmonary: WNL Breasts: WNL Gastrointestinal: WNL Genitourinary: WNL Musculoskeletal: WNL Skin: WNL Neurological: WNL Psychiatry: WNL Endocrinology: WNL Hematological: WNL Sleep: WNL All other systems normal Test Results reviewed and discussed with pt: N/A (V) Physical Examination: General: WDWN HEENT: pharynx clear, teeth: dentures Neck: NAD Lungs: CTA Heart: RRR Abdomen: soft, non-tender Genitals/Rectal: N/A Neurological: Alert/Oriented: x 3, CN II-XII Intact, no focal neurologic deficit Musculoskeletal: Gait: w/o assistance Extremities: No edema, builateral dorsalis pedis pylses, bilateral ankle edema, no n-pitting. 10 Gram Monofilament, Planter Surfaces: N/A Skin: normal Pressure ulcers: No () Assessment and Plan: 1. Hypertension: BP stable but can be better controlled Will add HCTZ to Nifedipine and Labetalol for better BP control. 2. History of CKD and Hypokalemia - Patient follows up with a adoption counselor will obtain consent frompatient for records to be sent to us. Will do UA and microscopy, urine creatinine, sodium ,and urine protein. 3. Health Maintenance: On vitamin D supplementation daily, received flu shot and PCV 13 6 months ago will give PPSV 23 next visit. Additional 15 min. Spent counseling patient on the need for regular exercise. documented in this encounter Plan of Treatment Upcoming Encounters Date Type Department Care Team (Late st Contact Info) Description 12/11/2024 10:30 AM GIS TECHNICIAN Appointment [facility] [address], [address] [place] [address] Jarett Reinoso MD [address] [place], [place] [id number] Christine Benitez MD [address] [place] [address] Keyshawn Krueger MD [address] [place] [address] [place] [address] [address] [id number] Scheduled Orders Name Type Priority Associated Diagnoses Orde r Schedule CREATININE URINE RANDOM Lab Routine Stage 2 chronic kidney disease Expected: 02/07/2018 (Approximate), Expires: 08/05/2018 SODIUM URINE RANDOM Lab Routine Stage 2 chronic kidney disease Expected: 02/07/2018 (Approximate), Expires: 08/05/2018 PROTEIN URINE RANDOM QUANTITATIVE Lab Routine Stage 2 chronic kidney disease Expected: 02/07/2018 (Approximate), Expires: 08/05/2018 IEP+CATHI URINE RANDOM PROFILE Lab Routine Stage 2 chronic kidney disease Expected: 02/06/2018, Expires: 02/06/2019 documented as of this encounter Visit Diagnoses Diagnosis Stage 2 chronic kidney disease- Primary Essential (primary) hypertension Unspecified essential hypertension documented in this encounter Care Teams Parts Counter Representative Relationship Specialty Start Date End Date Diana Mao MD [address] [place] [address] PCP - General 08/05/17 06/14/23 documented as of this encounter
--- OUTSIDE RECORDS SUMMARY | 2024-10-15 16:34 | XMS_ITS | Encounter Summary ---
Author Organization [facility] Address [address] [facility] [place] [address] Care Team Providers Care Matrix Drier Tender Name Role Phone Diana Mao MD Primary Care Provider [phone] Encounter Details Date Type Department Care Team (Late st Contact Info) Description 01/04/2020 1:00 PM ROUTING EQUIPMENT TENDER Office Visit [facility] [address] [place] [address] Diana Mao MD [address] [id number] CKD (chronic kidney disease) stage 4, GFR 15-29 ml/min (HCC) (Primary Dx); Essential hypertension Social History Tobacco Use Types Packs/Day [...] Sign Reading Time Taken Comments Blood Pressure 160/78 01/04/2020 2:40 PM ROUTING EQUIPMENT TENDER Pulse 69 01/04/2020 2:40 PM ROUTING EQUIPMENT TENDER Temperature 36.4 ??C (97.6 ??F) 01/04/2020 2:40 PM CS T Respiratory Rate 17 01/04/2020 2:40 PM ROUTING EQUIPMENT TENDER Oxygen Saturation 96% 01/04/2020 2:40 PM ROUTING EQUIPMENT TENDER Inhaled Oxygen Concentration - - Weight 80.3 kg (177 lb) 01/04/2020 2:39 PM ROUTING EQUIPMENT TENDER Height 170.2 cm (5' 7 ) 01/04/2020 2:39 PM ROUTING EQUIPMENT TENDER Body Mass Index 27.72 01/04/2020 2:39 PM ROUTING EQUIPMENT TENDER documented in this encounter Progress Notes * Diana Mao MD - 01/04/2020 2:09 PM CST Patient Name: Yolande Rea Date: January 04, 2020 Weight: Wt Readings from Last 2 Encounters: 10/08/19 174 lb 3.2 oz (79 kg) 04/06/19 173 lb 8 oz (78.7 kg) No data found. Complaint: Started [facility]EDS for MD per ophthalmology Has FLU, pneumovax updated outside R foot swelled Bowels are regular Has renal appt in January R shoulder and arm still hurt Not enough cause any problem goes away with one tylenol (I)History of Present Illness/Interval History (Document L3=more than 1; L4/5=more than 4 elements)(Note onset, duration, location, quality, radiation, severity, timing, context, modifying factors, assoc. symptoms): Urinary incontinence Assessment: Absence of urinary incontinence Fall Assessment: No falls (II) Current Medications: Current Outpatient Medications: ??? furosemide (LASIX) 20 MG tablet, Take 1 tablet by mouth once daily, Disp: 90 tablet, Rfl: 4 ??? hydroCHLOROthiazide (MICROZIDE) 12.5 MG capsule, Take 1 capsule by mouth once daily, Disp: 90 capsule, Rfl: 3 ??? labetalol (NORMODYNE; TRANDATE) 200 MG tablet, Take 1 tablet by mouth 2 times daily, Disp: 180 tablet, Rfl: 3 ??? potassium chloride (KLOR-CON) 20 MEQ packet, Take 1 packet by mouth once daily, Disp: 100 Each,Rfl: 4 ??? vitamin D3-cholecalciferol (CHOLECACIFEROL) 1000 UNITS tablet, Take 1 tablet by mouth once daily, Disp: 100 tablet, Rfl: 3 (III) Past Medical History: Diagnosis Date ??? CKD (chronic kidney disease) stage 3, GFR 30-59 ml/min proteinuria ??? HTN (hypertension), benign ??? Hyperparathyroid bone disease s/p surgery ??? Osteopenia Past Surgical History: Procedure Laterality Date ??? Appendectomy ??? Breast Reduction ??? Cholecystectomy, Laparoscopic ??? HX FRACTURE TX ??? Parathyroidectomy ETOH: some Tobacco: former Social History Socioeconomic History ??? Marital status: Single Spouse name: Not on file ??? Number of children: Not on file ??? Years of education: Not on file ??? Highest education level: Not on file Occupational History ??? Not on file Social Needs ??? Financial resource strain: Not on file ??? Food insecurity Worry: Not on file Inability: Not on file ??? Transportation needs Medical: Not on file Non-medical: Not on file Tobacco Use ??? Smoking status: Former Smoker Packs/day: 1.00 Start date: 10/31/1965 Last attempt to quit: 10/31/1983 Years since quittin.2 ??? Smokeless tobacco: Never Used Substance and Sexual Activity ??? Alcohol use: Yes Alcohol/week: 0.8 standard drinks ??? Drug use: No ??? Sexual activity: Not Currently Partners: Male Lifestyle ??? Physical activity Days per week: Not on file Minutes per session: Not on file ??? Stress: Not on file Relationships ??? Social connections Talks on phone: Not on file Gets together: Not on file Attends mandaeism service: Not on file Active member of club or organization: Not on file Attends meetings of clubs or organizations: Not on file Relationship status: Not on file ??? Intimate partner violence Fear of current or ex partner: Not on file Emotionally abused: Not on file Physically abused: Not on file Forced sexual activity: Not on file Other Topics Concern ??? Not on file Social History Narrative ??? Not on file (IV) Review of Systems: General: WNL Eyes: WNL ENT: WNL Cardiovascular: WNL Pulmonary: WNL Breasts: WNL Gastrointestinal: WNL Genitourinary: WNL Musculoskeletal: stiffness, shoulder, swelling in foot now gone Skin: WNL Neurological: WNL Psychiatry: WNL Endocrinology: WNL Hematological: WNL Sleep: WNL All other systems normal Test Results reviewed and discussed with pt: results letter sent Results for YOLANDE REA Alyssa ( ) as of 01/07/2020 18:00 Ref. Range 01/04/2020 15:15 01/04/2020 15:29 Vitamin B12 Latest Ref Range: 213 - 816 pg/mL 809 Sodium Latest Ref Range: 136 - 145 mmol/L 141 Potassium Latest Ref Range: 3.5 - 4.5 mmol/L 3.6 Chloride Latest Ref Range: 98 - 107 mmol/L 102 CO2 Latest Ref Range: 22 - 29 mmol/L 27 Anion Gap Latest Ref Range: 8 - 18 16 BUN Latest Ref Range: 7 - 26 mg/dL 47 (H) Creatinine Latest Ref Range: 0.6 - 1.2 mg/dL 2.1 (H) eGFR Latest Ref Range: >60 mL/min/1.73 m2 23 (L) Glucose Latest Ref Range: 70 - 115 mg/dL 98 Calcium Latest Ref Range: 8.4 - 10.2 mg/dL 9.3 Magnesium Latest Ref Range: 1.6 - 2.6 mg/dL 1.8 Phosphorus Latest Ref Range: 2.3 - 4.7 mg/dL 4.1 BUN/Creatinine Ratio Latest Ref Range: 7 - 23 22 Osmolality Calculated Latest Ref Range: 270 - 300 mOsm/kg 304 (H) TSH Latest Ref Range: 0.350 - 4.940 uIU/mL 2.452 WBC Latest Ref Range: 3.5 - 10.5 10??3/uL 5.9 RBC Latest Ref Range: 3.90 - 5.00 10??6/uL 3.82 (L) Hemoglobin Latest Ref Range: 12.0 - 15.5 g/dL 10.7 (L) Hematocrit Latest Ref Range: 35.0 - 45.0 % 32.5 (L) MCV Latest Ref Range: 81.0 - 97.0 fL 85.1 MCH Latest Ref Range: 28.0 - 34.0 pg 28.0 MCHC Latest Ref Range: 32.0 - 36.0 g/dL 32.9 Platelet Count Latest Ref Range: 150 - 400 10??3/uL 269 RDW-SD Latest Ref Range: 36.0 - 50.0 fL 40.6 RDW Latest Ref Range: 11.2 - 14.8 % 13.1 MPV Latest Ref Range: 9.3 - 12.8 fL 9.3 Neutrophils % Latest Ref Range: 35.0 - 70.0 % 51.6 Lymphocytes % Latest Ref Range: 19.7 - 55.1 % 30.5 Monocytes % Latest Ref Range: 3.0 - 15.0 % 12.3 Eosinophils % Latest Ref Range: 0.0 - 6.0 % 4.6 Basophils % Latest Ref Range: 0.0 - 1.5 % 0.8 Neutrophils Absolute Latest Ref Range: 1.6 - 7.0 10??3/uL 3.1 Lymphocyte Absolute Latest Ref Range: 0.8 - 2.9 10??3/uL 1.8 Monocytes Absolute Latest Ref Range: 0.14 - 0.66 10??3/uL 0.73 (H) Eosinophils Absolute Latest Ref Range: 0.00 - 0.45 10??3/uL 0.27 Basophils Absolute Latest Ref Range: 0.00 - 0.06 10??3/uL 0.05 nRBC Absolute Latest Ref Range: 0 10??3/uL 0.00 nRBC Auto Latest Ref Range: 0 /100 WBC 0.0 Color UA Latest Ref Range: Straw, Yellow, Colorless Yellow Clarity UA Latest Ref Range: Clear, Slt Cloudy Cloudy (Abnormal) Specific [place] UA Latest Ref Range: 1.005 - 1.030 1.015 pH UA Latest Ref Range: 5.0 - 8.0 pH 6.0 Protein UA Latest Ref Range: Negative mg/dL 2+ (Abnormal) Blood UA Latest Ref Range: Negative Negative Ketone UA Latest Ref Range: Negative mg/dL Negative Leukocyte Esterase Latest Ref Range: Negative 3+ (Abnormal) Nitrite UA Latest Ref Range: Negative Negative Glucose UA Latest Ref Range: Negative mg/dL Negative Bilirubin UA Latest Ref Range: Negative mg/dL Negative Urobilinogen UA Latest Ref Range: Negative mg/dL Negative WBC UA Latest Ref Range: None Seen, 0-5 /HPF 21-50 (Abnormal) RBC UA Latest Ref Range: None Seen, 0-2, 3-5 /HPF 3-5 Squamous Epithelial Cells UA Latest Ref Range: None Seen, 0-2 /HPF 11-20 (Abnormal) Transitional Epitelial Cells UA Latest Ref Range: None Seen, 0-2 /HPF 0-2 Bacteria Urine Latest Ref Range: None, Trace /HPF Trace Mucus UA Latest Ref Range: None, 1+ /LPF 1+ Hyaline Casts UA Latest Ref Range: None Seen, 0-2 /LPF 3-5 (Abnormal) (V) Physical Examination: BP 160/78 (BP SITE: RIGHT ARM, BP POSITION: STANDING, BP CUFF SIZE: 11) Pulse 69 Temp 97.6 ??F (36.4 ??C) (Oral) Resp 17 Ht 5' 7 (1.702 m) Wt 177 lb (80.3 kg) SpO2 96% BMI 27.72 kg/m2 General: WDWN HEENT: cataracts, teeth NAD Neck: NAD, no JVD Lungs: CTA Heart: RRR, murmur no Breasts: not done Abdomen: soft, non-tender, BS normal Genitals/Rectal: not done Neurological: Alert/Oriented: x 3, tremors absent, CN II-XII intact Musculoskeletal: Gait: normal gait stance and swing, no device Extremities: no CCE 10 Gram Monofilament, Planter Surfaces: N/A Skin: normal Pressure ulcers: No euthymic () Assessment and Plan: CKD (chronic kidney disease) stage 4, GFR 15-29 ml/min - Plan: BASIC METABOLIC PANEL (CALCIUM TOTAL), TSH, VITAMIN B12, CBC WITH DIFFERENTIAL, URINALYSIS W/MICROSCOPIC NO CULTURE Essential hypertension - Plan: BASIC METABOLIC PANEL (CALCIUM TOTAL), TSH, VITAMIN B12, CBC WITH DIFFERENTIAL, URINALYSIS W/MICROSCOPIC NO CULTURE, hydroCHLOROthiazide (HYDRODIURIL) 25 MG tablet Prevention due for dental, colonoscopy at age 66, Mammogram 2 years ago, immunizations up to date except will get dTap documented in this encounter Plan of Treatment Upcoming Encounters Date Type Department Care Team (Late st Contact Info) Description 12/11/2024 10:30 AM ROUTING EQUIPMENT TENDER Appointment [facility] Services [address] [facility], [facility] [address] [place] [address] Jarett Reinoso MD [address] [place], [place] [id number] Christine Benitez MD [address] [place] [address] Keyshawn Krueger MD [address] [place], [place] [id number] [place] [address] [place] [address] documented as of this encounter Results * (ABNORMAL) URINALYSIS W/MICROSCOPIC NO CULTURE (01/04/2020 3:29 PM ROUTING EQUIPMENT TENDER) Color UA Yellow Straw, Yellow, Colorless 01/04/2020 4:20 PM [facility] Clarity UA Cloudy(A) Clear, Slt Cloudy 01/04/2020 4:20 PM [facility] Specific [place] UA 1.015 1.005 - 1.030 01/04/2020 4:20 PM [facility] pH UA 6.0 5.0 - 8.0 pH 01/04/2020 4:20 PM [facility] Protein UA 2+(A) Negative mg/dL 01/04/2020 4:20 PM [facility] Glucose UA Negative Negative mg/dL 01/04/2020 4:20 PM [facility] Ketone UA Negative Negative mg/dL 01/04/2020 4:20 PM [facility] Bilirubin UA Negative Negative mg/dL 01/04/2020 4:20 PM [facility] Blood UA Negative Negative 01/04/2020 4:20 PM [facility] Nitrite UA Negative Negative 01/04/2020 4:20 PM [facility] Leukocyte Esterase 3+(A) Negative 01/04/2020 4:20 PM [facility] Urobilinogen UA Negative Negative mg/dL 01/04/2020 4:20 PM [facility] RBC UA 3-5 None Seen, 0-2, 3-5 /HPF 01/04/2020 4:20 PM [facility] WBC UA 21-50(A) None Seen, 0-5 /HPF 01/04/2020 4:20 PM [facility] Bacteria UA Trace None, Trace /HPF 01/04/2020 4:20 PM [facility] Squamous Epithelial Cells UA 11-20(A) None Seen, 0-2 /HPF 01/04/2020 4:20 PM [facility] Mucus UA 1+ None, 1+ /LPF 01/04/2020 4:20 PM [facility] Transitional Epithelial Cells UA 0-2 None Seen, 0-2 /HPF 01/04/2020 4:20 PM [facility] Hyaline Casts UA 3-5(A) None Seen, 0-2 /LPF 01/04/2020 4:20 PM [facility] Urine URINE SPECIMEN OBTAINED BY CLEAN CATCH PROCEDURE / Unknown Collection / Unknown 01/04/2020 3:29 PM ROUTING EQUIPMENT TENDER 01/04/2020 3:56 PM [facility] - 01/04/2020 4:20 PM ROUTING EQUIPMENT TENDER Diana Mao MD LAB - URINALYSIS ORD ERABLES [facility] [address] [phone] * (ABNORMAL) CBC WITH DIFFERENTIAL (01/04/2020 3:15 PM ROUTING EQUIPMENT TENDER) WBC 5.9 3.5 - 10.5 10? 3 /uL 01/04/2020 4:15 PM [facility] RBC 3.82(L) 3.90 - 5.00 10? 6 /uL 01/04/2020 4:15 PM [facility] Hemoglobin 10.7(L) 12.0 - 15.5 g/dL 01/04/2020 4:15 PM [facility] Hematocrit 32.5(L) 35.0 - 45.0 % 01/04/2020 4:15 PM [facility] MCV 85.1 81.0 - 97.0 fL 01/04/2020 4:15 PM [facility] MCH 28.0 28.0 - 34.0 pg 01/04/2020 4:15 PM [facility] MCHC 32.9 32.0 - 36.0 g/dL 01/04/2020 4:15 PM [facility] Platelet Count 269 150 - 400 10? 3 /uL 01/04/2020 4:15 PM [facility] RDW-SD 40.6 36.0 - 50.0 fL 01/04/2020 4:15 PM [facility] RDW-CV 13.1 11.2 - 14.8 % 01/04/2020 4:15 PM [facility] MPV 9.3 9.3 - 12.8 fL 01/04/2020 4:15 PM [facility] nRBC Absolute 0.00 0 10? 3 /uL 01/04/2020 4:15 PM [facility] nRBC Auto 0.0 0 /100 WBC 01/04/2020 4:15 PM [facility] Neutrophils % 51.6 35.0 - 70.0 % 01/04/2020 4:15 PM [facility] Lymphocytes % 30.5 19.7 - 55.1 % 01/04/2020 4:15 PM [facility] Monocytes % 12.3 3.0 - 15.0 % 01/04/2020 4:15 PM [facility] Eosinophils % 4.6 0.0 - 6.0 % 01/04/2020 4:15 PM [facility] Basophil % 0.8 0.0 - 1.5 % 01/04/2020 4:15 PM [facility] Neutrophils Absolute 3.1 1.6 - 7.0 10? 3 /uL 01/04/2020 4:15 PM [facility] Lymphocyte Absolute 1.8 0.8 - 2.9 10? 3 /uL 01/04/2020 4:15 PM [facility] Monocytes Absolute 0.73(H) 0.14 - 0.66 10? 3 /uL 01/04/2020 4:15 PM [facility] Eosinophils Absolute 0.27 0.00 - 0.45 10? 3 /uL 01/04/2020 4:15 PM [facility] Basophils Absolute 0.05 0.00 - 0.06 10? 3 /uL 01/04/2020 4:15 PM [facility] Immature Granulocytes % 0.2 0.0 - 1.0 % 01/04/2020 4:15 PM [facility] Blood BLOOD SPECIMEN / Unknown Lab Venipuncture / Unknown 01/04/2020 3:15 PM ROUTING EQUIPMENT TENDER 01/04/2020 3:56 PM ROUTING EQUIPMENT TENDER Diana Mao MD LAB - HEMATOLOGY ORD ERABLES [facility] [address] [phone] * VITAMIN B12 (01/04/2020 3:15 PM ROUTING EQUIPMENT TENDER) Pathologist [facility] Vitamin B12 809 213 - 816 pg/mL 01/04/2020 5:19 PM ROUTING EQUIPMENT TENDER [facility] Blood BLOOD SPECIMEN / Unknown Lab Venipuncture / Unknown 01/04/2020 3:15 PM ROUTING EQUIPMENT TENDER 01/04/2020 3:56 PM ROUTING EQUIPMENT TENDER Diana Mao MD LAB - CHEMISTRY PATRICIA CASIANO [address] [phone] * TSH (01/04/2020 3:15 PM ROUTING EQUIPMENT TENDER) [facility] TSH 2.452 0.350 - 4.940 uIU/mL 01/04/2020 5:19 PM [facility] Blood BLOOD SPECIMEN / Unknown Lab Venipuncture / Unknown 01/04/2020 3:15 PM ROUTING EQUIPMENT TENDER 01/04/2020 3:56 PM ROUTING EQUIPMENT TENDER Diana Mao MD LAB - CHEMISTRY PATRICIA CASIANO [address] [phone] * (ABNORMAL) BASIC METABOLIC PANEL (CALCIUM TOTAL) (01/04/2020 3:15 PM ROUTING EQUIPMENT TENDER) [facility] BUN 47(H) 7 - 26 mg/dL 01/04/2020 4:50 PM [facility] Creatinine 2.1(H) 0.6 - 1.2 mg/dL 01/04/2020 4:50 PM [facility] Sodium 141 136 - 145 mmol/L 01/04/2020 4:50 PM [facility] Potassium 3.6 3.5 - 4.5 mmol/L 01/04/2020 4:50 PM [facility] Chloride 102 98 - 107 mmol/L 01/04/2020 4:50 PM [facility] CO2 27 22 - 29 mmol/L 01/04/2020 4:50 PM [facility] Glucose 98 70 - 115 mg/dL 01/04/2020 4:50 PM [facility] Calcium 9.3 8.4 - 10.2 mg/dL 01/04/2020 4:50 PM [facility] Anion Gap 16 8 - 18 01/04/2020 4:50 PM [facility] BUN/Creatinine Ratio 22 7 - 23 01/04/2020 4:50 PM [facility] Osmolality Calculated 304(H) 270 - 300 mOsm/kg 01/04/2020 4:50 PM [facility] eGFR 23(L) >60 mL/min/1.7 3 m2 01/04/2020 4:50 PM [facility] Blood BLOOD SPECIMEN / Unknown Lab Venipuncture / Unknown 01/04/2020 3:15 PM ROUTING EQUIPMENT TENDER 01/04/2020 3:56 PM ROUTING EQUIPMENT TENDER Diana Mao MD LAB - CHEMISTRY PATRICIA CASIANO [facility] Organization Address City/State/ZIP Co de Phone Number [facility] [address] [phone] documented in this encounter Visit Diagnoses Diagnosis CKD (chronic kidney disease) stage 4, GFR 15-29 ml/min (HCC)- Primary Chronic kidney disease, Stage IV (severe) Essential hypertension documented in this encounter Care Teams Matrix Drier Tender Relationship Specialty Start Date End Date Diana Mao MD [address] [place] [address] PCP - General 08/05/17 06/14/23 documented as of this encounter
--- OUTSIDE RECORDS SUMMARY | 2024-10-15 16:34 | XMS_ITS | Encounter Summary ---
Author Organization [facility] Address [address] [facility] [place] [address] Care Team Providers Care Flatbed Company Driver Name Role Phone Diana Mao MD Primary Care Provider [phone] Reason for Visit * Reason Onset Date Comments MEDICATION REFILL 12/28/2019 Hydrocholoroci de Encounter Details Date Type Department Care Team (Late st Contact Info) Description 12/28/2019 Refill [facility] [address] [place] [address] Diana Mao MD [address] [address] MEDICATION REFILL (Hydrocholorocide) Social History Tobacco Use Types Packs/Day Years [...] encounter Miscellaneous Notes * Telephone Encounter - Karly Yu - 12/28/2019 3:51 PM CST Pt called for TWO reasons: 1. Needs referral to [facility] for Audiology/Hearing Aid Services (lost a hearing aid, needs it replaced). 2. Wants hydrochlorothiazaide Rx increased from 12.5 to 25. Refill Request Kirsty Shah Álvaro JUNG: 10/08/19 NOV due: not applicable NOV scheduled: 04/04/20 LRF: 02/19/19 Qty Disp: 90 caps # of refills: 4 Allergies: Allergies Allergen Reactions ??? Ramipril Other Other reaction(s): Other (See Comments) Kidney Damage Kidney Damage Pended Medication Order: Requested Prescriptions No prescriptions requested or ordered in this encounter PACKER documented in this encounter Plan of Treatment Upcoming Encounters Date Type Department Care Team (Late st Contact Info) Description 12/11/2024 10:30 AM PILL PACKER Appointment [facility] Vascular Services [address] [facility] [address] [place] [address] Jarett Reinoso MD [address] [place], [place] [id number] Christine Benitez MD [address] [place] [phone] Keyshawn Krueger MD [address] [place], [place] [id number] Armando Ferro, [address] [phone] documented as of this encounter Visit Diagnoses Not on filedocumented in this encounter Care Teams Flatbed Company Driver Relationship Specialty Start Date End Date Diana Mao MD [address] [place] [address] PCP - General 08/05/17 06/14/23 documented as of this encounter
--- OUTSIDE RECORDS SUMMARY | 2024-10-15 16:34 | XMS_ITS | Encounter Summary ---
Author Organization [facility] Address [address] [facility] [place] [address] Care Team Providers Care Manager Forensic Name Role Phone Diana Mao MD Primary Care Provider [phone] Encounter Details Date Type Department Care Team (Late Contact Info) Description 01/22/2021 Orders Only [facility] - COVID Vax [address] [place] [address] Wojciech Navarro MD [address] [facility] [address] [place] [address] Need for vaccination Social History Tobacco Use Types Packs/Day Years [...] (Late Contact Info) Description 12/11/2024 10:30 AM PROCESSES CHEMICAL DESIGN ENGINEER Appointment [facility] Vascular Services [address] [facility], [facility] [address] [place] [address] Jarett Reinoso MD [address] [place] [address] Christine Benitez MD [address] [place] [address] Keyshawn Krueger MD [address] [facility] [place] [place] [address] Armando Ferro, [address] [phone] documented as of this encounter Visit Diagnoses Diagnosis Need for vaccination Need for prophylactic vaccination and inoculation against unspecified single disease documented in this encounter Care Teams Manager Forensic Relationship Specialty Start Date End Date Diana Mao MD [address] [place] [address] PCP - General 08/05/17 06/14/23 documented as of this encounter
--- OUTSIDE RECORDS SUMMARY | 2024-10-15 16:34 | XMS_ITS | Encounter Summary ---
Author Organization [facility] Address [address] [place] [address] Care Team Providers Care Sales Outfitter Name Role Phone Diana Mao MD Primary Care Provider [phone] Reason for Visit * Reason Onset Date Comments Pain Extremity 05/23/2020 Encounter Details Date Type Department Care Team (Late st Contact Info) Description 05/23/2020 Telephone [facility] Diabetes and Metabolism [address] [place] [address] Diana Mao MD [address] [address] Pain Extremity Social History Tobacco Use Types Packs/Day Years [...] encounter Miscellaneous Notes * Telephone Encounter - Marie Bennett LPN - 05/23/2020 1:[address] Mao, Pt called with c/o right foot swollen for the past 2 days, right shoulder muscle pain/ache 5/10 forthe past 6 weeks. She is also calling her insurance to find out which mail order pharmacy she is to use and will callback with name. She wants to have a refill sent over for her Hydrochlorothiazide 25 mg sent as she is no longer wanting to fill them at [facility]. documented in this encounter Plan of Treatment Upcoming Encounters Date Type Department Care Team (Late st Contact Info) Description 12/11/2024 10:30 AM PLANNING DIVISION SUPERINTENDENT Appointment [facility] Vascular Services [address] [facility], [address] [place] [address] Jarett Reinoso MD [address] [place], [place] [address] Christine Benitez MD [address] [place] [phone] Keyshawn Krueger MD [address] [place], [place] [address] Armando Ferro, [address] [phone] documented as of this encounter Visit Diagnoses Not on filedocumented in this encounter Care Teams Sales Outfitter Relationship Specialty Start Date End Date Diana Mao MD [address] [place] [address] PCP - General 08/05/17 06/14/23 documented as of this encounter
--- OUTSIDE RECORDS SUMMARY | 2024-10-15 16:34 | XMS_ITS | Encounter Summary ---
Author Organization [facility] Address [address] [facility] [place] [address] Care Team Providers Care Damage Assessor Name Role Phone Diana Mao MD Primary Care Provider [phone] Reason for Visit * Reason Onset Date Comments Order 04/03/2020 Shoulder - wants massage therapy Encounter Details Date Type Department Care Team (Late st Contact Info) Description 04/03/2020 Telephone [facility] [address] [place] [address] Diana Mao MD [address] [address] Order (Shoulder - wants massage therapy) Social History Tobacco Use Types Packs/Day Years [...] encounter Miscellaneous Notes * Telephone Encounter - Aimee Karly Shah - 04/03/2020 9:24 AM CDT Pt called with continued issues with her shoulder. She used to go to a massage therapist and she wants to go again. She does NOT want PT, only massage therapy. Woman she used to go to was Carolina Cannon, she is not sure she is still in business, if not, she will need help finding someone. Can ask Neri (OTHER SPORTS COACH OR INSTRUCTOR) to assist if needed. JUNG: 01/04/20 RTC: None scheduled [phone] documented in this encounter Plan of Treatment Upcoming Encounters Date Type Department Care Team (Late st Contact Info) Description 12/11/2024 10:30 AM AIRCRAFT INSPECTOR Appointment [facility] Vascular Services [address] [facility] [address] [place] [address] Jarett Reinoso MD [address] [place] [address] Christine Benitez MD [address] [place] [address] Keyshawn Krueger MD [address] [place], [place] [id number] Armando Ferro, [address] [address] documented as of this encounter Visit Diagnoses Not on filedocumented in this encounter Care Teams Damage Assessor Relationship Specialty Start Date End Date Diana Mao MD [address] [place] [address] PCP - General 08/05/17 06/14/23 documented as of this encounter
--- OUTSIDE RECORDS SUMMARY | 2024-10-15 16:34 | XMS_ITS | Encounter Summary ---
Author Organization [facility] Address [address] [place] [address] Care Team Providers Care Cash Accounting Clerk Name Role Phone Diana Mao MD Primary Care Provider [phone] Reason for Visit * Reason Comments Annual Follow-Up Encounter Details Date Type Department Care Team (Late st Contact Info) Description 10/08/2019 1:40 PM COLLAR SHAPER OPERATOR Office Visit [facility] [address] [place] [address] Diana Mao MD [address] [address] Other proteinuria (Primary Dx); Senile osteoporosis; Hypertensive chronic kidney disease with stage 1 through stage 4 chronic kidney disease, or unspecified chronic kidney disease; Chronic kidney disease, stage 3 (moderate); 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 chronic kidney disease (HCC) Social History Tobacco Use Types Packs/Day Years [...] Sign Reading Time Taken Comments Blood Pressure 160/70 10/08/2019 1:46 PM COLLAR SHAPER OPERATOR Pulse 66 10/08/2019 1:46 PM COLLAR SHAPER OPERATOR Temperature 36.2 ??C (97.2 ??F) 10/08/2019 1:46 PM CS T Respiratory Rate 16 10/08/2019 1:46 PM COLLAR SHAPER OPERATOR Oxygen Saturation - - Inhaled Oxygen Concentration - - Weight 79 kg (174 lb 3.2 oz) 10/08/2019 1:46 PM COLLAR SHAPER OPERATOR Height 172 cm (5' 7.72 ) 10/08/2019 1:46 PM COLLAR SHAPER OPERATOR Body Mass Index 26.71 10/08/2019 1:46 PM COLLAR SHAPER OPERATOR documented in this encounter Progress Notes * Diana Mao MD - 10/08/2019 1:57 PM CST Patient Name: Kirsty Rea Date: October 08, 2019 Weight: Wt Readings from Last 2 Encounters: 10/08/19 174 lb 3.2 oz (79 kg) 04/06/19 173 lb 8 oz (78.7 kg) Patient Vitals for the past 48 hrs: Temp Pulse Resp BP 10/08/19 1346 97.2 ??F (36.2 ??C) 66 16 160/70 Complaint: Did you get my labs? (I)History of Present Illness/Interval History (Document L3=more than 1; L4/5=more than 4 elements)(Note onset, duration, location, quality, radiation, severity, timing, context, modifying factors, assoc. symptoms): Denies h/o HTN but it appears she has a significant h/o HTN. Does not remember any renal imaging. No TN, no CVA normal ECHO 2014. Does not remember ramipril reported allergy kidney failure No regular exercise Urinary incontinence Assessment: Presence of urinary incontinence at night can't get to BR fast enough Fall Assessment: No falls (II) Current Medications: [...] Laparoscopic ??? HX FRACTURE TX ??? Parathyroidectomy Rapid Geriatric Assessment 05/05/2018 02/06/2018 Fatigue: Are you fatigued? 1 1 Resistance: Cannot walk up one flight of stairs? 0 0 Aerobic: Cannot walk one block? 0 0 Illnesses: Do you have more than 5 illnesses? 0 0 Loss of weight: Have you lost more than 5% of your weight in the last 6 months? 0 0 FRAIL Total Score (Total points=5) 1 1 Strength: How much difficulty do you have in lifting and carrying 10 pounds? 0 - Assistance in walking: How much difficulty do you have walking across a room? 0 0 Rise from a chair: How much difficulty do you have transferring from a chair or bed? 0 0 Climb stairs: How much difficulty do you have climbing a flight of ten stairs? 0 0 Falls: How many times have you fallen in the last year? 0 0 SARC-F TOTAL 0 - My appetite is 3 5 Food tastes 3 5 When I eat, I feel full after eating 3 4 Normally I eat 4 4 SNAQ TOTAL 13 18 Hour markers okay (2 points) 2 2 Time correct (2 points) 2 2 3. What were the five objects I asked you to remember? 5 5 What state did she live in? (1 point/[place]) 1 1 RCS Total 10 10 Do you have an advanced directive? Yes - Social Lives with son in her house, he works at a restaurant. No stairs. Plays bridge Works at the [employer] ETOH: rarely Tobacco: stopped decades ago (IV) Review of Systems: General: WNL Eyes: Recent eye appt, has ENT: poor hearing Cardiovascular: chest pain, WNL Pulmonary: dyspnea Breasts: WNL mammogram 2 yrs ago Gastrointestinal: WNL Genitourinary: urgency, WNL Musculoskeletal: WNL Skin: Local scleroderma morphia Neurological: WNL Psychiatry: WNL Endocrinology: WNL Hematological: WNL Sleep: WNL All other systems normal Test Results reviewed and discussed with pt: from her [place] rubber in [facility] (V) Physical Examination: BP 160/70 Pulse 66 Temp 97.2 ??F (36.2 ??C) (Oral) Resp 16 Ht 5' 7.72 (1.72 m) Wt 174 lb 3.2 oz (79 kg) BMI 26.71 kg/m2 General: WDWN HEENT: pharynx clear, teeth: dentures Neck: NAD Lungs: CTA Heart: RRR, PMI not displaced Breasts: Normal Abdomen: soft, non-tender, BS normal Genitals/Rectal: not done Neurological: Alert/Oriented: x 3, tremors absent, DTR equal, CN II-XII intact Musculoskeletal: Gait: ambulatory, w/o assistance and Joints: WNL Extremities: no CCE 10 Gram Monofilament, Planter Surfaces: N/A Skin: scarified lesions on face Pressure ulcers: No euthymic () Assessment and Plan: Other proteinuria Senile osteoporosis Hypertensive chronic kidney disease with stage 1 through stage 4 chronic kidney disease, or unspecified chronic kidney disease Chronic kidney disease, stage 3 (moderate) AR SHAPER OPERATOR documented in this encounter Plan of Treatment Upcoming Encounters Date Type Department Care Team (Late st Contact Info) Description 12/11/2024 10:30 AM COLLAR SHAPER OPERATOR Appointment [facility] Vascular Services [address] [facility] [address] [place] [address] Jarett Reinoso MD [address] [place], [place] [id number] Christine Benitez MD [address] [place] [address] Keyshawn Krueger MD [address] [place] [address] Armando Ferro, [address] [phone] Scheduled Orders Name Type Priority Associated Diagnoses Orde r Schedule PROTEIN ELECTROPHORESIS URINE RANDOM PANEL Lab Routine Hypertensive chronic kidney disease with stage 1 through stage 4 chronic kidney disease, or unspecified chronic kidney disease Ordered: 10/08/2019 documented as of this encounter Procedures Procedure Name Priority Date/Time Associated Diagnosis Comments PHOSPHORUS BLOOD Routine 01/04/2020 3:1 5 PM COLLAR SHAPER OPERATOR Hypertensive chronic kidney disease with stage 1 through stage 4 chronic kidney disease, or unspecified chronic kidney disease MAGNESIUM BLOOD Routine 01/04/2020 3:15 PM COLLAR SHAPER OPERATOR Hypertensive chronic kidney disease with stage 1 through stage 4 chronic kidney disease, or unspecified chronic kidney disease documented in this encounter Results * MAGNESIUM BLOOD (01/04/2020 3:15 PM COLLAR SHAPER OPERATOR) Magnesium 1.8 1.6 - 2.6 mg/dL 01/04/2020 4:50 PM COLLAR SHAPER OPERATOR [facility] Blood BLOOD SPECIMEN / Unknown Lab Venipuncture / Unknown 01/04/2020 3:15 PM COLLAR SHAPER OPERATOR 01/04/2020 3:56 PM COLLAR SHAPER OPERATOR Diana Mao MD LAB - CHEMISTRY PATRICIA CASIANO [address] [phone] * PHOSPHORUS BLOOD (01/04/2020 3:15 PM COLLAR SHAPER OPERATOR) Phosphorus 4.1 2.3 - 4.7 mg/dL 01/04/2020 4:50 PM COLLAR SHAPER OPERATOR [facility] Blood BLOOD SPECIMEN / Unknown Lab Venipuncture / Unknown 01/04/2020 3:15 PM COLLAR SHAPER OPERATOR 01/04/2020 3:56 PM COLLAR SHAPER OPERATOR Diana Mao MD LAB - CHEMISTRY PATRICIA CASIANO [address] [phone] documented in this encounter Visit Diagnoses Diagnosis Other proteinuria- Primary Senile osteoporosis Hypertensive chronic kidney disease with stage 1 through stage 4 chronic kidney disease, or unspecified chronic kidney disease Chronic kidney disease, stage 3 (moderate) (HCC) 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 chronic kidney disease (HCC) documented in this encounter Care Teams Cash Accounting Clerk Relationship Specialty Start Date End Date Diana Mao MD [address] [place] [address] PCP - General 08/05/17 06/14/23 documented as of this encounter
--- OUTSIDE RECORDS SUMMARY | 2024-10-15 16:34 | XMS_ITS | Encounter Summary ---
Author Organization [facility] Address [address] [place] [address] Care Team Providers Care Guest Attendant Name Role Phone Diana Mao MD Primary Care Provider Encounter Details Date Type Department Care Team (Latest Contact Info) Description 01/04/2020 Travel Social History Tobacco Use Types Packs/Day [...] st Contact Info) Description 12/11/2024 10:30 AM NATIONAL PARK TOUR GUIDE Appointment [facility] Vascular Services [address] [address] Jarett Reinoso MD [address] [place], [place] [phone] Christine Benitez MD [address] [place] [address] Keyshawn Krueger MD [address] [place] [address] [place] [address] [phone] documented as of this encounter Visit Diagnoses Not on filedocumented in this encounter Care Teams Guest Attendant Relationship Specialty Start Date End Date Diana Mao MD [address] [place] [address] PCP - General 08/05/17 06/14/23 documented as of this encounter
--- OUTSIDE RECORDS SUMMARY | 2024-10-15 16:34 | XMS_ITS | Encounter Summary ---
Author Organization [facility] Address [address] [facility] [place] [address] Care Team Providers Care Automotive Sales Professional Name Role Phone Diana Mao MD Primary Care Provider [phone] Encounter Details Date Type Department Care Team (Late Contact Info) Description 08/09/2018 Orders Only [facility] PHYS INTERNAL MED [address] [place] [phone] Diana Mao MD [address] [place] [address] Anemia in stage 2 chronic kidney disease ; Anemia due to chronic kidney disease, unspecified CKD stage; Hypothyroidism, unspecified type Social History Tobacco Use Types Packs/Day Years [...] (Late Contact Info) Description 12/11/2024 10:30 AM LITIGATION EXAMINER Appointment [facility] [address] [facility], [facility] [address] [place] [address] Jarett Reinoso MD [address] [place] [address] Christine Benitez MD [address] [place] [address] Keyshawn Krueger MD [address] [place] [address] Armando Ferro, [address] [phone] Scheduled Orders Name Type Priority Associated Diagnoses Orde r Schedule VITAMIN B12 Lab Routine Anemia in stage 2 chronic kidney disease Anemia Due To Chronic Kidney Disease, Unspecified Ckd Stage Ordered: 08/09/2018 documented as of this encounter Visit Diagnoses Diagnosis Anemia in stage 2 chronic kidney disease- Primary Anemia due to chronic kidney disease, unspecified CKD stage Hypothyroidism, unspecified type documented in this encounter Care Teams Automotive Sales Professional Relationship Specialty Start Date End Date Diana Mao MD [address] [place] [address] PCP - General 08/05/17 06/14/23 documented as of this encounter
--- OUTSIDE RECORDS SUMMARY | 2024-10-15 16:34 | XMS_ITS | Encounter Summary ---
Author Organization [facility] Address [address] [facility] [place] [address] Care Team Providers Care Community Relations Assistant Name Role Phone Diana Mao MD Primary Care Provider [phone] Reason for Visit * Reason Onset Date Comments MEDICATION REFILL 07/13/2021 Encounter Details Date Type Department Care Team (Late st Contact Info) Description 07/13/2021 Refill [facility] [address] [place] [address], [place] [phone] Tariq Antoine, DIGITAL SALES DIRECTOR-[address] [phone] MEDICATION REFILL Social History Tobacco Use Types [...] encounter Miscellaneous Notes * Telephone Encounter - Joanna Alvarado RN - 07/13/2021 9:28 AM CDT Pt called stating her rash that she has had has been getting progressively worse. Was recently given prednisone to see if it would treat the rash, it did not. Would like something to help until her appt with Tariq 07/17. Advised pt that a refill request for Kenalog cream would be sent to Tariq. Refill Request Kirsty Rea JUNG: 02/02/21 NOV scheduled: 07/17/2021 LRF: Unknown Qty Disp: Unknown # of refills: Unknown Allergies: Allergies Allergen Reactions ??? Ramipril Other Other reaction(s): Other (See Comments) Kidney Damage Kidney Damage Pended Medication Order: Requested Prescriptions Pending Prescriptions Disp Refills ??? triamcinolone acetonide (KENALOG) 0.1 % cream 45 g 0 Sig: APPLY TO RASH ON BACK AND BODY TWICE A DAY NEEDED. AVOID FACE. documented in this encounter Plan of Treatment Upcoming Encounters Date Type Department Care Team (Late st Contact Info) Description 12/11/2024 10:30 AM HORTICULTURAL TECHNICAL OFFICER Appointment [facility] V[facility] Services [address] [facility] [address] [place], [place] [phone] Jarett Reinoso MD [address] [place], [place] [phone] Christine Benitez MD [address] [place] [address] Keyshawn Krueger MD [address] [place] [address] Armando Ferro, [address] [phone] documented as of this encounter Visit Diagnoses Not on filedocumented in this encounter Care Teams Community Relations Assistant Relationship Specialty Start Date End Date Diana Mao MD [address] [place] [address] PCP - General 08/05/17 06/14/23 documented as of this encounter
--- OUTSIDE RECORDS SUMMARY | 2024-10-15 16:34 | XMS_ITS | Encounter Summary ---
Author Organization [facility] Address [address] [facility] [place] [address] Care Team Providers Care Animal Husbandry Teacher Name Role Phone Diana Mao MD Primary Care Provider [phone] Reason for Visit * Reason Comments Incontinence Encounter Details Date Type Department Care Team (Late st Contact Info) Description 09/29/2021 10:00 AM SLICE CUTTING MACHINE OPERATOR Office Visit [facility] Obstetrics Gynecology and Women's Health [address] [place] [address] Santiago Mar Che, MD [address] [facility] [address] [place] [address] Urge incontinence (Primary Dx); Stress incontinence; Incontinence of feces, unspecified fecal incontinence type Social History Tobacco Use Types Packs/Day [...] on file documented as of this encounter Patient Instructions * Patient Instructions* Santiago Mar Che, MD - 09/29/2021 10:31 AM SLICE CUTTING MACHINE OPERATOR Symptom Diary Please keep a symptom diary. This will help us figure out what makes things worse, and what does not. Include the date, what you ate, what you drank, perhaps what your were doing, the symptoms, and if appropriate, time of your menstrual cycle. Look especially for milk products and also sugars Look up low FODMAP diet and try to follow. See me in a month. Please think about seeing a bread slicer machine about your many moles Call if any problems or concerns at . You can also ask the spraying machine operator to send me a message, and I or the nurses in Urogynecology Triage will respond when we can. You will note that your clinical notes from your visits will be available for visits after 2019 (Sorry, earlier ones are not released by [facility] or [facility]). If you see any errors, please tell mewithin the week of your visit. If there are phrases used that you don't understand, feel free to ask. I do not have control of some of the lab results being released for your review, so if there are any you need, simply ask me. The vast majority should be available perhaps even sooner than when I getto see them. For example, they may return from the lab in the middle of the night, and you may see them before I review them. Please contact me if you have any questions about them. Please review the medication list at the end of the After Visit Summary given to you with the visittoday. Compare the list to what you take at home, and if there are any errors or differences, please tell me. The dosing may be different because I didn't change them to reflect how you take them exactly. E CUTTING MACHINE OPERATOR documented in this encounter Progress Notes * Santiago Mar Che, MD - 10/02/2021 3:33 PM CST Treated with macrobid. Normally a colonizer, but cath specimen E CUTTING MACHINE OPERATOR * Santiago Mar Che, MD - 09/29/2021 10:00 AM CST Urogynecology - Initial Visit Referral source: Dr. Diana Mao Primary care physician: same Ms. Kirsty Rea is a 80 year old year old, 2, para 2, female who has complaints of a problem with frequency, and diarrhea. She did not show for her visit on 09/10/2021. She had described insensible urine loss to Dr. Mao. She appears to take about 1500 mg of tylenol daily. This is for her frozen shoulder and pain. She says she has suffered from diarrhea - comes and goes. It was worse last year. It bothers her every month or more. She has not had colonoscopy. She has a cologuard test but has not used it. Frequency began to bother in the last year. She voided 8 times before 6 pm. She does not have complaints of stress incontinence. She does have complaints of urge incontinence noted as a wet pad. She voids every 1 hours during waking hours, and awakens 1 times per night (or sleeping period) to void.She uses 4 urinary pads a day. She denies dysuria, gross hematuria, post void fullness and hesitancy. She does not complain of symptoms of constipation. She does complain of loss of unformed stool without her control. She does not complain of fecal trapping. She does not digitate to complete defecation. She does not complain of a prolapse. She is not sexually active. Review of Systems: Constitutional: Negative Eyes: Negative Ears, nose, mouth, throat, and face: Negative Respiratory: Negative Cardiovascular: Negative Gastrointestinal: Negative Genitourinary:Negative Integument/breast: Negative Hematologic/lymphatic: Negative Musculoskeletal: Negative Neurological: Negative Behavioral/Psych: Negative Endocrine: Negative Allergic/mmunologic: Negative Past Medical History: Diagnosis Date ??? CKD [...] Years since quittin.9 ??? Smokeless tobacco: Never Used Vaping Use [...] on file Housing Stability: Not on file Family History Problem Relation Name Age of Onset ??? Hypertension Father ??? Hypertension Brother Current Outpatient Medications on File Prior to Visit Medication Sig Dispense Refill ??? acetaminophen (TYLENOL) 500 MG capsule Take 500 mg by mouth every 4 hours as needed for Fever or Pain ??? hydroCHLOROthiazide (MICROZIDE) 12.5 MG capsule Take 1 capsule by mouth once daily 90 capsule 3 ??? labetalol (NORMODYNE; TRANDATE) 200 MG tablet Take 1 tablet by mouth 2 times daily 180 tablet 3 ??? Multiple Vitamins-Minerals (ICAPS AREDS 2 PO) ??? NIFEdipine CR 24hr (ADALAT CC) 90 MG tablet Take 90 mg by mouth ??? [place]-3 Fatty Acids (FISH OIL) 1200 MG ??? triamcinolone acetonide (KENALOG) 0.1 % cream APPLY TO RASH ON BACK AND BODY TWICE A DAY NEEDED. AVOID FACE. 45 g 0 No current facility-administered medications on file prior to visit. Allergies Allergen Reactions ??? Ramipril Other Other reaction(s): Other (See Comments) Kidney Damage Kidney Damage PHYSICAL EXAMINATION: URINE Post void residual : 30 cc. Dipstick (-) lalo est, (-) nitrite, (-) blood CONSTITUTIONAL: look vital signs GENERAL: well developed, well nourished, well groomed SKIN: Inspected and palpated within normal limits NECK: within normal limits THYROID - normal CARDIOVASCULAR: regular rate and rhythm LUNGS: clear to auscultation GASTROINTESTINAL: ABDOMEN - no masses, no tenderness, no rebound, surgical scar noted Diastasis recti - 0 LYMPHATICS: Nodes (all that apply) Neck - within normal limits Axilla - within normal limits Groin - within normal limits BACK: within normal limits NEUROLOGIC/PSYCHIATRIC: Oriented to - person, place, time Mood/Affect -within normal limits GYNECOLOGIC/GENITOURINARY: Breasts - not examined External genitalia - atrophic Urethral meatus - caruncle noted Urethra - within normal limits Urethrovesical junction hypermobility - Yes Supine Empty Stress Test - negative Bladder base - within normal limits POP-Q- Good support Kegel strength : 2/5 Cervix - within normal limits Uterus - within normal limits Adnexa - not palpable Anus / Perineum - within normal limits Large previous right ML episiotomy with loss of muscle IMPRESSION She has what sounds like insensible loss of urine. She is somewhat of a poor historian. She howeveris very bothered by loss of loose stools that occur 1 to 4 times a month. She wears a pad for this as well as urinary loss. She is bothered by urinary frequency (says prior to a few years ago, would just void a few times a day, but up to 8 now). She has been taking 1500 mg of tylenol daily for her s houlder pain. She has had a large right mediolateral episiotomy with loss of muscle. She has a urethral caruncle. PLAN: She is going to start with a symptom diary, and start a low FODMAP diet. She has concerns about some moles, and was asked to see her bread slicer machine as she said someone told her she had a cancerous growth. To see me in a month. Will work on her urinary symptoms then if her defecatory problems are better. Time - The total face to face encounter time was 35 minutes during today's visit which includes a medically appropriate exam or evaluation, and counseling and educating the patient or family/caregiver. Additionally, I also spent time on the day of the visit preparing to see the patient and completingthe visit documentation, including - ? Preparing to see the patient (review of previous tests, records available, etc) Time: 10 min ? Ordering medications, tests, or procedures as needed Time: 5 min ? Referring and/or communicating with other health care partner Time: 5 min ? Documenting clinical information in the electronic health record Time: 10 min ? Care coordination as needed Time: 0 min Total time spent for encounter: 65 minutes 30 min (38691) 45 minutes (71508) 60 minutes (63972) E CUTTING MACHINE OPERATOR documented in this encounter Procedure Notes * Santiago Mar Che, MD - 09/29/2021 10:31 AM CSTAssociated Order(s): PROC BLADDER CATHETERIZATION Procedure(s): AZ INSERT NON-INDWELLING BLADDER Pre-Procedure Diagnose(s): Urge incontinence Post-Procedure Diagnose(s): Urge incontinence The patient was prepped with betadine (or [...] taken. The patient tolerated the procedure well. E CUTTING MACHINE OPERATOR documented in this encounter Miscellaneous Notes * Addendum Note - Santiago Mar Che, MD - 10/02/2021 3:32 PM CSTAddended by: SANTIAGO MAR CHE on: 10/02/2021 03:32 PM Modules accepted: Orders E CUTTING MACHINE OPERATOR documented in this encounter Plan of Treatment Upcoming Encounters Date Type Department Care Team (Late st Contact Info) Description 12/11/2024 10:30 AM SLICE CUTTING MACHINE OPERATOR Appointment [facility] Vascular Services [address] [facility], [address] [address] Jarett Reinoso MD [address] [place] [address] Christine Benitez MD [address] [place] [id number] Keyshawn Krueger MD [address] [place] [id number] [place] [address] [address] documented as of this encounter Procedures Procedure Name Priority Date/Time Associated Diagnosis Comments CULTURE URINE COMPREHENSIVE Routine 09/29/2021 10:35 AM SLICE CUTTING MACHINE OPERATOR Urge incontinence AZ INSERT NON-INDWELLING BLADDER Routine 09/29/2021 10:31 AM SLICE CUTTING MACHINE OPERATOR Urge incontinence URINALYSIS AUTO - POINT OF CARE (AMB) [facility] Routine 09/29/2021 Urge incontinence documented in this encounter Results * (ABNORMAL) CULTURE URINE COMPREHENSIVE (09/29/2021 10:35 AM SLICE CUTTING MACHINE OPERATOR) Culture (A) [facility] Comment: ??CULTURE, URINE, SPECIAL ?Micro Number: ?[id number] ??Test Status: ? Final ??Specimen Source: ?? Other (specify) ??Specimen Quality: ??Adequate ??Result: ?10,000-49,000 CFU/mL of Corynebacterium species ? May represent colonizers from external and ? internal genitalia. No further testing (including ? susceptibility) will be performed. REPORT COMMENT: FASTING:UNKNOWN Test Performed at: [facility] [address] [place], [place] ??[id number] CECILIA FARIAS DO,MPH Microbiology URINE SPECIMEN COLLECTION, CATHETERIZED / Unknown 09/29/2021 10:35 AM SLICE CUTTING MACHINE OPERATOR 09/29/2021 1:03 PM SLICE CUTTING MACHINE OPERATOR Santiago Mar MD LAB - MICROBIOLOGY O RDERABLES [facility] [address] [place] [address] * AZ INSERT NON-INDWELLING BLADDER (09/29/2021 10:31 AM SLICE CUTTING MACHINE OPERATOR) Narrative Santiago Mar Che, MD - 09/29/2021 10:31 AM SLICE CUTTING MACHINE OPERATOR Santiago Mar Che, MD ? 09/29/2021 10:31 [...] POCT neg Ketones UA POCT neg Specific Gilbert UA 1.020 Blood Urine POCT neg pH UA 6.0 Protein UA ++ Urobilinogen UA 0.2 Nitrite UA neg WBC UA neg Urine URINE / Unknown 09/29/2021 Santiago Mar MD LAB - POINT OF CARE ORDERABLES documented in this encounter Visit Diagnoses Diagnosis Urge incontinence- Primary Stress incontinence Female stress incontinence Incontinence of feces, unspecified fecal incontinence type documented in this encounter Care Teams Animal Husbandry Teacher Relationship Specialty Start Date End Date Diana Mao MD [address] [place] [address] PCP - General 08/05/17 06/14/23 documented as of this encounter
--- OUTSIDE RECORDS SUMMARY | 2024-10-15 16:34 | XMS_ITS | Encounter Summary ---
Author Organization [facility] Address [address] [place] [address] Care Team Providers Care Domestic Travel Consultant Name Role Phone Diana Mao MD Primary Care Provider [phone] Reason for Visit * Reason Onset Date Comments Results 08/04/2020 Encounter Details Date Type Department Care Team (Late st Contact Info) Description 08/04/2020 Telephone [facility], [place] [address] Tariq Antoine, SIGNAL PROCESSING ENGINEER-MANAGER CALL CENTER [address] [place] [phone] Results Social History Tobacco Use Types Packs/Day Years Used Date Smoking Tobacco: Former Cigarettes 1 18 0 10/31/1965 - 10/31/1983 Smokeless Tobacco: Never Alcohol Use Standard Drinks/Week Comments Yes 0.8 (1 standard drink = 0.6 oz p ure alcohol) Sex and Gender Information Value Date Recorded Sex Assigned at Not on file Gender Identity Not on file Sexual Orientation Not on file COVID-19 Exposure Response Date Recorded In the last month, have you been in contact with someone who was confirmed or suspected to have Coronavirus / COVID-19? No / Unsure 07/30/2020 11:59 AM CDT documented as of this encounter Miscellaneous Notes * Telephone Encounter - Joanna Alvarado RN - 08/04/2020 3:20 PM CDT Pt called requesting results of the xray and what further instructions she may have. CB: [phone] JUNG:07/30/20 documented in this encounter Plan of Treatment Upcoming Encounters Date Type Department Care Team (Late st Contact Info) Description 12/11/2024 10:30 AM THREAD PULLER Appointment [facility] Vascular Services [address] [facility], [address] [place] [address] Jarett Reinoso MD [address] [place], [place] [id number] Christine Benitez MD [address] [place] [address] Keyshawn Krueger MD [address] [place] [address] Armando Ferro, [address] [phone] documented as of this encounter Visit Diagnoses Not on filedocumented in this encounter Care Teams Domestic Travel Consultant Relationship Specialty Start Date End Date Diana Mao MD [address] [place] [address] PCP - General 08/05/17 06/14/23 documented as of this encounter
--- OUTSIDE RECORDS SUMMARY | 2024-10-15 16:34 | XMS_ITS | Clinical Summary ---
Author Organization [facility] Address [address] [place] [address] Care Team Providers Care Trigonometry Teacher Name Role Phone Sabrina Villaseñor PHOTOGRAPHIC EQUIPMENT INSPECTOR Primary Care Provider [phone] Allergies Active Allergy Reactions Criticality Noted Date Comments Ramipril Other (See comments) Low 05/18/2017 Other reaction(s): Other (See Comments) Kidney Damage Kidney Damage Other reaction(s): Other (See Comments) Kidney Damage Kidney Damage Medications NIFEdipine (PROCARDIA XL/ADALAT CC) 90 mg 24 hr tablet Take 90 mg by mouth 11/27/2019 Active labetaloL (NORMODYNE,TRAND ATE) 200 mg tablet 11/04/2020 Active triamcinolone (KENALOG) 0.1 % cream APPLY TO RASH ON BACK AND BODY TWICE A DAY NEEDED. AVOID FACE. 01/08/2021 Active hydroCHLOROthiaz lucas (HYDRODIURIL) 12.5 mg tablet 12/30/2020 Acti ve acetaminophen 500 mg capsule Take 500 mg by mouth every 4 (four) hours as needed Active naproxen sodium 220 mg capsule Take by mouth Active cholestyramine (QUESTRAN) 4 gram packet Take 1 packet by mouth 3 (three) times a day with meals Active Active Problems Problem Noted Date Diagnosed Date Chronic diarrhea 04/14/2022 Assessment & Plan (06/08/2022 1:34 PM CDT): Continue questran once/week and return prn Assessment & Plan (04/14/2022 6:04 PM CDT): Possibly IBS Will reorder labs from previous provider:FAT QUALITATIVE FECES RANDOM, LACTOFERRIN FECAL QUALITATIVE, OCCULT BLOOD FECES, OSMOLALITY FECES, CULTURE STOOL PANEL, HELICOBACTER PYLORI ANTIGEN FECES, PANCREATIC ELASTASE FECES Ct of the abdomen Referral to GI for further evaluation Encounter for wellness examination 04/14/2022 Assessment & Plan (04/14/2022 6:05 PM CDT): Ordered CBC, cmp, lipid, hgb a1c Colonoscopy: referral to GI for diarrhea was given. They may do a colonoscopy. She was declined by her insurance in the past Mammo: referral placed. Instructed to reach out to insurance to see if they will cover it F/u in 1 year for annual Mixed conductive and sensori neural hearing loss of left ear with restricted hearing of right ear 05/14/2020 Never smoked tobacco 09/06/2012 Hypertension 02/26/2011 Assessment & Plan (04/14/2022 6:02 PM CDT): Bp in the office today BP Readings from Last 1 Encounters: 04/14/22 142/80 Continue current regimen of hctz 12.5mg daily, labetalol 200mg daily and nifedipine 90mg daily Recommend DASH diet, heart-healthy lifestyle, exercise. Discussed the risks of hypertension. F/u in 3 months Morphea 02/26/2011 Immunizations Name Administration Dates Next Due Influenza LAIV (Nasal) 09/08/2018,08/05/2017 Influenza, Quad, Adjuvantate d, Intramuscular 09/28/2021 Influenza, Quadrivalent, Rec ombinant, Egg Free, Preservative Free, Intramuscular 12/28/2021 Influenza, Trivalent, High D ose, Split, Preservative Free, Intramuscular 08/29/2019,09/08/2018,08/05/2017,09/09 Influenza, Trivalent, IM (MDV) 08/06/2013,2010 Influenza, Unspecified 08/22/2020,2017,08/05/2017,09/09 Pneumococcal Conjugate PCV 13 08/05/2017 Pneumococcal Polysaccharide PPV23 09/08/2018 Tdap 09/28/2021 Surgical History Surgery Date Site/Laterality Comments PARATHYROIDECTOMY Parathyroidectomy CATARACT EXTRACTION Cataract Surgery OTHER SURGICAL HISTORY Anterior footplate fixation w /otosclerosis Medical History Medical History Date Comments Hypertension Hypertension Hx Other Medical Scleroderma Hx Other Medical Hearing Loss Hx Other Medical Hyperparathyroi dism Family History Medical History Relation Name Comments Hypertension Brother 2 Hypertension; Hypertension Father Hypertension; Heart attack Mother Myocardial Infa rction; Cause of : Myocardial Infarction Alcohol abuse Other Heart disease Other Relation Name Status Comments Brother 1 Alive Brother 2 Father Alive Mother Other Social History Tobacco Use Types Packs/Day Years Used Date Smoking Tobacco: Former Smokeless Tobacco: Never Alcohol Use Standard Drinks/Week Comments Yes 0 (1 standard drink = 0.6 oz pur e alcohol) AUDIT-C Answer Date Recorded Q1: How often do you have a drink containing alc ohol? Monthly or less 04/14/2022 Q2: How many drinks containi ng alcohol do you have on a typical day when you are drinking? 1 or 2 04/14/2022 Q3: How often do you have si x or more drinks on one occasion? Never 04/14/2022 PHQ-2 Answer Date Recorded PHQ-2 Total Score (If total score is 3 or more points, staff should administer the PHQ-9) 0 04/14/2022 Comments Unknown Sex and Gender Information Value Date Recorded Sex Assigned at Not on file Legal Sex Female 3:00 AM RENT AND HOUSING INVESTIGATOR Gender Identity Not on file Sexual Orientation Not on file Obstetrics History Last Filed Vital Signs Vital Sign Reading Time Taken Comments Blood Pressure 140/74 06/08/2022 1:25 PM CDT Pulse 61 06/08/2022 1:25 PM CDT Temperature 36.3 ??C (97.4 ??F) 01/22/2021 11:24 AM C DT Respiratory Rate 16 04/14/2022 1:27 PM CDT Oxygen Saturation 98% 06/08/2022 1:25 PM CDT Inhaled Oxygen Concentration - - Weight 74.5 kg (164 lb 3.2 oz) 06/08/2022 1:25 P M CDT Height 170.2 cm (5' 7 ) 06/08/2022 1:25 PM CDT Body Mass Index 25.72 06/08/2022 1:25 PM CDT Plan of Treatment Health Maintenance Due Date Last Done Comments Breast Cancer Screening-Mammogram 1941 Colon Cancer Screening-Colonoscopy 1941 Osteoporosis Screening-Bone Density Scan 1941 Hepatitis B Screening 1959 Zoster Vaccine (1 of 2) 1991 Depression Screening 04/14/2023 04/14/2022 Fall Risk Assessment 04/14/2023 04/14/2022 Well Visit 65+ 04/14/2023 04/14/2022 Covid-19 Vaccine (5 - 2023-2 5 season) 2024 04/21/2022, 08/04/2021, 01/24/2021, Additional history exists Influenza Vaccine (#1) 2024 , 09/28/2021, 08/22/2020, Additional history exists DTaP/Tdap/Td Vaccine (2 - Td or Tdap) 09/28/2031 09/28/2021 Pneumococcal vaccine 65+ Completed 09/08/2018, 03/2017 Insurance [facility] [employer] [facility] [employer] Advance Directives For more information, please contact: [phone] Documents on File Type Date Recorded Patient Supervisor Paint Department Expl anation Advance Directives and Living Will 12/15/2022 1:13 PM Power of Procurement Internship document Care Teams Trigonometry Teacher Relationship Specialty Start Date End Date Sabrina Villaseñor NP [address] [place] [address] PCP - General Nurse Practitioner 01/25/23
--- OUTSIDE RECORDS SUMMARY | 2024-10-15 16:34 | XMS_ITS | Encounter Summary ---
Author Organization [facility] Address [address] [place] [address] Care Team Providers Care Purse Maker Name Role Phone Diana Mao MD Primary Care Provider [phone] Reason for Visit * Reason Onset Date Comments Order 08/22/2018 Encounter Details Date Type Department Care Team (Late st Contact Info) Description 08/22/2018 Telephone [facility] [address] [place] [address] Diana Mao MD [address] [address] Order Social History Tobacco Use Types Packs/Day Years [...] encounter Miscellaneous Notes * Telephone Encounter - Ree Dozier RN - 08/22/2018 5:25 PM CDT Patient requesting to have labs drawn prior to upcoming office visit scheduled on 09/08/18. Staff will have to fax orders to [facility] in [place]. OP Orders Main Lab fax Patient return call back [phone] documented in this encounter Plan of Treatment Upcoming Encounters Date Type Department Care Team (Late st Contact Info) Description 12/11/2024 10:30 AM ION EXCHANGE OPERATOR Appointment [facility] Services [address] [facility] [address] [place] [address] Jarett Reinoso MD [address] [place], [place] [id number] Christine Benitez MD [address] [place] [address] Keyshawn Krueger MD [address] [place] [address] Armando Ferro, [address] [phone] documented as of this encounter Visit Diagnoses Not on filedocumented in this encounter Care Teams Purse Maker Relationship Specialty Start Date End Date Diana Mao MD [address] [place] [address] PCP - General 08/05/17 06/14/23 documented as of this encounter
--- OUTSIDE RECORDS SUMMARY | 2024-10-15 16:34 | XMS_ITS | Encounter Summary ---
Author Organization [facility] Address [address] [place] [address] Care Team Providers Care Director Sales Support Name Role Phone Diana Mao MD Primary Care Provider [phone] Reason for Visit * Reason Comments Follow-up Encounter Details Date Type Department Care Team (Late st Contact Info) Description 02/02/2021 2:00 PM CDT Office Visit [address], [place] [id number] Diana Mao MD [address] [place] [id number] Shoulder arthritis (Primary Dx); Age-related osteoporosis without current pathological fracture; Encounter for screening mammogram for malignant neoplasm of breast Social History Tobacco Use Types Packs/Day Years [...] Sign Reading Time Taken Comments Blood Pressure 130/68 02/02/2021 2:14 PM CDT Pulse 74 02/02/2021 2:14 PM CDT Temperature 36.7 ??C (98 ??F) 02/02/2021 2:13 PM CDT Respiratory Rate - - Oxygen Saturation 98% 02/02/2021 2:14 PM CDT Inhaled Oxygen Concentration - - Weight 80.6 kg (177 lb 9.6 oz) 02/02/2021 2:13 P M CDT Height 170.2 cm (5' 7 ) 02/02/2021 2:13 PM CDT Body Mass Index 27.82 02/02/2021 2:13 PM CDT documented in this encounter Patient Instructions * Patient Instructions* Partha Seymour - 02/02/2021 2:06 PM CDT How to Contact Geriatric Medicine Between Office Visits For appointments, call us at [phone] and select option 1 or you can send a [employer] message. To request refills, please contact your pharmacy who will reach out to us. If you have changes to your refill prescription, you will need to contact us directly at [phone] and select option 2 orsend your doctor a [employer] message. We request that all prescription refills be requested during regular office phone hours. If your prescription requires a prior authorization, it may take several days for us to get approval from your[employer] company before we can refill your prescription. Call your pharmacy first to confirm if there are any refills on file. Please do not wait until you are completely out to prevent any interruption in your medication. Normal business hours are from 8:00 am to 4:30 pm Tuesday through Tuesday. Our fax number is [phone]. If you have been seen anyplace outside of [facility], please have your records and test results [...] day are given to the Geriatric physician loss prevention analyst. Please call [phone] and identify yourself as a patient in our practice needing to speak to Geriatric Medicine. The machine operator farmworker will contact the physician loss prevention analyst. You can generally expect a return call within 30 minutes. On weekends, physicians are seeing hospitalized patients and there may be a longer wait. Test and laboratory results: Our practice typically reports lab and test results through letters orMyChart, the [facility] online patient portal. Please allow 5 days from when your tests are completed to receive the results. IF GOING TO [facility] or [facility]--PLEASE TAKE LAB ORDER WITH YOU !! If you did not complete your labs at a [facility] facility or at a commercial lab ([employer], [facility] [employer]) then we may not have received the results. Please contact the lab and request that they are faxed to us([phone]). Visit our website at [email or web address] for additional information about [facility] and an interactive health encyclopedia. For information related to COVID-19, please visit the cdc website at www.cdc.gov. [facility]'s missed appointment policy is: - Patients with 3 consecutively missed appointments OR 3 missed appointments in a 12 month period may be asked to seek consultation outside of [facility]. - A missed appointment is defined as: ?? Arriving to a scheduled appointment too late to be seen (Patients who arrive to clinic later than their scheduled appointment time may not be seen) ?? Not showing up for an appointment ?? An appointment cancelled less than 24 hours in advance NEW OFFICE: [facility], [address] [place] [address] documented in this encounter Progress Notes * Brennon Nair MD - 02/02/2021 3:14 PM CDT Resident: ???I have seen and examined the patient with the resident and I agree with the findings and plan of care as documented by the resident. Date of Service: 02/02/21 CC her grandson is taking a gap year and her Right shoulder hurts. Negative Beer can sign, no crepitance. Diana Mao MD Patient Name: Kirsty Rea Date: 02/02/2021 Age: [age] year old : 1940 REASON FOR EVALUATION; FAMILY AND PATIENT CONCERNS: Routine check-up HPI: Ms. Rea is a 80 year old lady who is coming today for routine check up. She is living at home with her son. She is totally independent in her ADLs and IADLs. She doesn't use any walker or cane. She didn't have any falls in the last year. She reports good appetite and denies any weight loss. She denies any sleeping problems. her mood is good. she reports rt shoulder pain due to her advanced osteoarthritis, she recently got cortisone injection in her rt shoulder and reported improvement. PATIENT HISTORY: Past Medical History: Diagnosis Date ??? CKD (chronic kidney disease) stage 3, GFR 30-59 ml/min proteinuria ??? HTN (hypertension), benign ??? Hyperparathyroid bone disease s/p surgery ??? Osteopenia Past Surgical History: Procedure Laterality Date ??? Appendectomy ??? Breast Reduction ??? Cholecystectomy, Laparoscopic ??? HX FRACTURE TX ??? Parathyroidectomy Family History Problem Relation Name Age of [...] date: 10/31/1965 Quit date: 10/31/1983 Years since quittin.2 ??? Smokeless tobacco: [...] file Gets together: Not on file Attends spiritism service: Not on file Active member of [...] Social History Narrative ??? Not on file Immunization History Administered Date(s) Administered ??? FLU VACCINE IIV INC ANTIG PF IM 08/05/2017, 09/08/2018, 08/29/2019, 08/22/2020 ??? FLU VACCINE TRI IIV3 SPLIT IM (AFLURIA) 08/27/2011, 08/06/2013 ??? FLU, HISTORIC VACCINE 08/22/2020 ??? PNEUMOCOCCAL PPSV23 09/08/2018 ??? Pneumococcal Pcv13 Conj 08/05/2017 Covid vaccines x 2 done in [place] MEDS: Current Outpatient Medications Medication Sig Dispense Refill ??? furosemide (LASIX) 20 MG tablet Take 1 tablet by mouth once daily 90 tablet 4 ??? hydroCHLOROthiazide (MICROZIDE) 12.5 MG capsule Take 1 capsule by mouth once daily 90 capsule 3 ??? labetalol (NORMODYNE; TRANDATE) 200 MG tablet Take 1 tablet by mouth 2 times daily 180 tablet 3 ??? Multiple Vitamins-Minerals (ICAPS AREDS 2 PO) ??? NIFEdipine CR 24hr (ADALAT CC) 90 MG tablet Take 90 mg by mouth ??? potassium chloride (KLOR-CON) 20 MEQ packet Take 1 packet by mouth once daily (Patient not taking: Reported on 07/30/2020) 100 Each 4 ??? tacrolimus (PROTOPIC) 0.1 % ointment Apply to affected area every 12 hours ??? triamcinolone acetonide (KENALOG) 0.1 % cream APPLY TO RASH ON BACK AND BODY TWICE A DAY NEEDED. AVOID FACE. ??? vitamin D3-cholecalciferol (CHOLECACIFEROL) 1000 UNITS tablet Take 1 tablet by mouth once tablet 3 No current facility-administered medications for this visit. ALLERGIES: Allergies Allergen Reactions ??? Ramipril Other Other reaction(s): Other (See Comments) Kidney Damage Kidney Damage VITALS: BP 130/68 (BP SITE: RIGHT ARM, BP POSITION: STANDING, BP CUFF SIZE: 11) Pulse 74 Temp 98 ??F (36.7 ??C) (Temporal) Ht 5' 7 (1.702 m) Wt 177 lb 9.6 oz (80.6 kg) SpO2 98% BMI 27.82 kg/m2 REVIEW OF SYSTEMS: GEN: Denies recent changes in weight, appetite, energy level, sleep habits, or bowel/bladder habits. EYES: Denies blurred vision, diplopia, discharge, pain, itching, redness, or photophobia. ENT: Denies hearing loss, ear pain, congestion, nasal drainage, nose bleeds, post-nasal drip, sore throat, and hoarseness. RESP: Denies shortness of breath, cough, sputum, wheezing, or hemoptysis. CV: Denies chest pain, palpitations, irregular heart beat, syncope, BLANDON, orthopnea, PND, or swelling of the feet or ankles. BREASTS: Negative for any lumps, pain, skin changes, or nipple discharge. GI: Denies dysphagia,abdominal pain, nausea, vomiting, diarrhea, constipation, heartburn,bloody/tarry stools, or vomiting blood. : Reports normal urine output with no c/o pain or discomfort. NEURO: Denies headache, dizziness, seizures, numbness/tingling, or weakness. MS: Indicates moderate joint pain. SKIN: Denies rashes, itching bruises or lesions.. ALL/IMMUNOLOGIC: Denies allergies, rhinorrhea, sneezing, asthma, hives or itching. HEME: Denies easy bleeding, bruising or enlarged lymphnodes. ENDO:Denies excessive thirst, fatigue, weight changes, weakness,or cold/heat intolerance. PSYCH: Denies depression, anxiety, hallucinations, sleep distubances,or suicidal tendencies. HIV or Hepatitis: No known risk factors. IMMUNIZATIONS: Up to date and documented. PHYSICAL EXAM: GEN: Awake, alert and oriented x 3. Well-developed, well-groomed, in no acute distress. HEENT: PERRL. EOMI. No discharge, erythema, or swelling to eyes. Bilateral TM normal without fluid or infection. Nasal mucosa clear with no erythema or drainage. Septum midline, turbinates pink with no redness or swelling. Mucous membranes moist, pharynx normal with no lesions or swelling. NECK: Neck is supple with no significant adenopathy, no bruits noted. Thyroid is normal in size without nodules or tenderness. RESP: Clear to auscultation bilaterally. No abnormal respiratory effort or retraction noted. Breathsounds are positive bilaterally, no tachypnea, retractions, or cyanosis. Normal percussion and palpation of the chest with no fremitus,crepitus, dullness, tenderness, or masses noted. CARD: Regular rate, rhythm without murmur, clicks, rubs or gallops. Symmetric distal pulses, no edema or varicosities noted. BREASTS: Normal to inspection/palpation, symmetric in appearance with no skin changes. No dimpling,nipple retraction or discharge. No masses or nodes. ABD/GI: Abdomen soft, nontender, not distended. Bowel sounds positive. Liver and spleen are normal to percussion and palpation. No masses noted. No hernias found on exam. : Not assessed. LYMPH: No cervical nodes noted. MS: Normal strength, tone, and muscle mass. No swelling or deformities. Back is straight and non-tender, full ROM of upper and lower extremities. SKIN: Normal to inspection. Warm, dry, supple, with no changes in moles or sores that will not heal. NEURO: Intact motor, sensory, cerebellar, and cranial nerve systems. PSYCH:Judgement and memory intact. Mood and affect appropriate. See Doc Flowsheet Section for additional information regarding Mental Status Examination and Depression Screening. Rapid Geriatric Assessment 02/02/2021 10/08/2019 05/05/2018 02/06/2018 Fatigue: Are you fatigued? 0 1 1 1 Resistance: Cannot walk up one flight of stairs? 0 0 0 0 Aerobic: Cannot walk one block? 0 0 0 0 Illnesses: Do you have more than 5 illnesses? 0 0 0 0 Loss of weight: Have you lost more than 5% of your weight in the last 6 months? 0 0 0 0 FRAIL Total Score (Total points=5) 0 1 1 1 Strength: How much difficulty do you have in lifting and carrying 10 pounds? 0 0 0 - Assistance in walking: How much difficulty do you have walking across a room? 0 0 0 0 Rise from a chair: How much difficulty do you have transferring from a chair or bed? 0 0 0 0 Climb stairs: How much difficulty do you have climbing a flight of ten stairs? 0 1 0 0 Falls: How many times have you fallen in the last year? 0 0 0 0 SARC-F TOTAL 0 1 0 - My appetite is 4 4 3 5 Food tastes 4 4 3 5 When I eat, I feel full after eating 4 4 3 4 Normally I eat 4 3 4 4 SNAQ TOTAL 16 15 13 18 Hour markers okay (2 points) 2 2 2 2 Time correct (2 points) 2 2 2 2 3. What were the five objects I asked you to remember? 5 4 5 5 What state did she live in? (1 point/[place]) 1 1 1 1 RCS Total 10 9 10 10 Do you have an advanced directive? Yes Yes Yes - LAB RESULTS: Recent Labs Component Name 01/04/20 1515 WBC 5.9 HGB 10.7* HCT 32.5* PLTCOUNT 269 Recent Labs Component Name 01/04/20 1515 POTASSIUM 3.6 CO2 27 BUN 47* CREATININE 2.1* EGFR 23* GLUCOSE 98 CALCIUM 9.3 ASSESSMENT: Ms. Rea is a 80 YO lady who is coming for routine check up PLAN: Rt shoulder osteoarthritis: - Tylenol 1g q8 Prn - improved after cortisone injection. Hypertension: BP is controlled on Adalat, labetalol, and HCT - patient was advised to do screening mammogram and colonoscopy COUNSELING: Discussed diagnosis and treatment plan. MIN COUNSELING: Not timed MINUTES WITH PATIENT: 41 Brennon Nair MD Associated attestation - Diana Mao MD - 02/02/2021 6:25 PM CDT Resident: ???I have seen and examined the patient with the resident and I agree with the findings and plan of care as documented by the resident. Date of Service: 02/02/21 CC her grandson is taking a gap year and her Right shoulder hurts. Negative Beer can sign, no crepitance. Referral to PT. Diana Mao MD documented in this encounter Plan of Treatment Upcoming Encounters Date Type Department Care Team (Late st Contact Info) Description 12/11/2024 10:30 AM SENIOR ENERGY TRADER Appointment [facility] Vascular Services [address] [facility], [facility] [address] [place] [address] Jarett Reinoso MD [address] [place], [place] [id number] Christine Benitez MD [address] [place] [phone] Keyshawn Krueger MD [address] [place] [address] Armando Ferro, [address] [address] documented as of this encounter Visit Diagnoses Diagnosis Shoulder arthritis- Primary Unspecified arthropathy, shoulder region Age-related osteoporosis without current pathological fracture Senile osteoporosis Encounter for screening mammogram for malignant neoplasm of breast Other screening mammogram documented in this encounter Care Teams Director Sales Support Relationship Specialty Start Date End Date Diana Mao MD [address] [place] [address] PCP - General 08/05/17 06/14/23 documented as of this encounter
--- OUTSIDE RECORDS SUMMARY | 2024-10-15 16:34 | XMS_ITS | Encounter Summary ---
Author Organization [facility] Address [address] [address] Care Team Providers Care Director Global Intelligence Name Role Phone Diana Mao MD Primary Care Provider [phone] Encounter Details Date Type Department Care Team (Latest Contact Info) Description 07/30/2020 Travel Social History Tobacco Use Types Packs/Day [...] AM CDT documented as of this encounter Plan of Treatment Upcoming Encounters Date Type Department Care Team (Late st Contact Info) Description 12/11/2024 10:30 AM MARKETING AUTOMATION SPECIALIST Appointment [facility] Vascular Services [address] [facility] [place], [facility] [address] [place] [address] Jarett Reinoso MD [address] [place], [place] [phone] Christine Benitez MD [address] [place] [phone] Keyshawn Krueger MD [address] [place] [address] [place] [address] [address] documented as of this encounter Visit Diagnoses Not on filedocumented in this encounter Care Teams Director Global Intelligence Relationship Specialty Start Date End Date Diana Mao MD [address] [place] [address] PCP - General 08/05/17 06/14/23 documented as of this encounter
--- OUTSIDE RECORDS SUMMARY | 2024-10-15 16:34 | XMS_ITS | Encounter Summary ---
Author Organization [facility] Address [address] [place] [address] Care Team Providers Care Rn Surgical Pcu Name Role Phone Diana Mao MD Primary Care Provider [phone] Reason for Visit * Reason Comments Follow-up Encounter Details Date Type Department Care Team (Late st Contact Info) Description 09/08/2018 1:[address] Office Visit [facility] [address] [place] [address] Diana Mao MD [address] [address] Need for influenza vaccination (Primary Dx); Essential (primary) hypertension; Neuroma of foot; Localized scleroderma Social History Tobacco Use Types Packs/Day Years [...] Sign Reading Time Taken Comments Blood Pressure 132/72 09/08/2018 1:[address] ADVIS[address] Pulse 80 09/08/2018 1:[address] Temperature 36.1 ??C (97 ??F) 09/08/2018 1:[address] Respiratory Rate - - Oxygen Saturation 97% 09/08/2018 1:[address] Inhaled Oxygen Concentration - - Weight 83 kg (182 lb 14.4 oz) 09/08/2018 1:[address] Height 170.2 cm (5' 7 ) 09/08/2018 1:[address] Body Mass Index 28.65 09/08/2018 1:[address] documented in this encounter Patient Instructions * Patient Instructions* Diana Mao MD - 09/08/2018 2:[address] ADVISOR 1. Find an exercise program so you have something for at least 20 minutes for at least 4 x week. 2. Updated today pneumonia vaccine, flu vaccine. 3. Go to medical office supervisor, eye doctr and and dentis. 4. Send reports of mammogram and colonoscopy. %. Records from your gun striper. 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 Pulled a muscle in yoga, Needs colonoscopy, needs mammogram wants to get them in [place]. Needs second pneumovax (I)History of Present Illness/Interval History (Document L3=more than 1; L4/5=more than 4 elements)(Note onset, duration, location, quality, radiation, severity, timing, context, modifying factors, assoc. symptoms): Concerned about renal function but I have no labs from her gun striper. His note says he is concerned about proteinuria. Urinary incontinence Assessment: Absence of urinary incontinence Fall Assessment: No falls (II) Current Medications: Current Outpatient Prescriptions: ??? hydroCHLOROthiazide (MICROZIDE) 12.5 MG capsule, Take 1 capsule by mouth once daily Reasons: High Blood Pressure Disorder, Disp: 90 capsule, Rfl: 3 ??? NIFEdipine CR osmotic 24hr (PROCARDIA-XL) 90 MG tablet, Take 1 tablet by mouth once daily for 90 days, Disp: 90 tablet, Rfl: 3 ??? labetalol (NORMODYNE; TRANDATE) 200 MG tablet, Take 1 tablet by mouth once daily for 90 days, Disp: 100 tablet, Rfl: 3 ??? aspirin (ASPIRIN) 81 MG tablet, Take 1 tablet by mouth once daily, Disp: 100 tablet, Rfl: 3 ??? vitamin D3-cholecalciferol (CHOLECACIFEROL) 1000 UNITS tablet, Take 1 tablet by mouth once daily, Disp: 100 tablet, Rfl: 3 (III) Past/Interval Medical, Family, Social History(Document L3=0; L4=1; L5=2 or more areas): Change: no change since last ETOH: none Tobacco: none Social History Social [...] ??? Not on file Social History Narrative Adopted daughter age 51 completing tx for localized BrCa. Has no hair. She is involved with grandchildren wo I believe are in their 20s (IV) Review of Systems: C/o feeling stiff in joints in yoga Dry skin asks for lotion advice Test Results reviewed and discussed with pt: none in our system (V) Physical Examination: BP 132/72 Pulse 80 Temp 97 ??F (36.1 ??C) (Oral) Ht 5' 7 (1.702 m) Wt 182 lb 14.4 oz (83 kg) SpO2 97% BMI 28.65 kg/m2 General: WDWN HEENT: teeth: Missing has about ten with bridgework Neck: NAD Lungs: CTA Heart: RRR Breasts: Normal Abdomen: soft, non-tender Genitals/Rectal: not done Neurological: Alert/Oriented: x 3, tremors absent, CN II-XII intact Musculoskeletal: Gait: normal gait, no apparent joint deformities Extremities: no CCE 10 Gram Monofilament, Planter Surfaces: N/A Skin: dey, flakey Pressure ulcers: No euthymic () Assessment and Plan: Need for influenza vaccination - Plan: FLU VACCINE, HIGH-DOSE, 65YO AND OVER Essential (primary) hypertension - Plan: hydroCHLOROthiazide (MICROZIDE) 12.5 MG capsule, NIFEdipine CR osmotic 24hr (PROCARDIA-XL) 90 MG tablet, labetalol (NORMODYNE; TRANDATE) 200 MG tablet Health maintenance updated today. Medications reviewed. Additional 20 min. Spent counseling patient on fitness, physical activity counselling on support for cancer patients. ADVISOR documented in this encounter Plan of Treatment Upcoming Encounters Date Type Department Care Team (Late st Contact Info) Description 12/11/2024 10:[address] Appointment [facility] Vascular Services [address] [facility] [address] [place] [address] Jarett Reinoso MD [address] [place], [place] [phone] Christine Benitez MD [address] [place] [address] Keyshawn Krueger MD [address] [place], [place] [phone] [place] [address] [phone] documented as of this encounter Visit Diagnoses Diagnosis Need for influenza vaccination- Primary Need for prophylactic vaccination and inoculation against influenza Essential (primary) hypertension Unspecified essential hypertension 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
--- OUTSIDE RECORDS SUMMARY | 2024-10-15 16:34 | XMS_ITS | Encounter Summary ---
Author Organization [facility] Address [address] [place] [address] Care Team Providers Care Clinical Social Worker Name Role Phone Diana Mao MD Primary Care Provider [phone] Reason for Visit * Reason Onset Date Comments Abnormal Results Follow Up 10/02/2021 Encounter Details Date Type Department Care Team (Late st Contact Info) Description 10/02/2021 Telephone [facility] [address] [place] [address] Santiago Mar Che, MD [address] [place] [address] Abnormal Results Follow Up Social History Tobacco Use Types Packs/Day Years [...] encounter Miscellaneous Notes * Telephone Encounter - Cherry Johnston RN - 10/02/2021 3:36 PM DNA SEQUENCING ASSOCIATE Notified patient of Dr Mar's results message. Left voice mail message SEQUENCING ASSOCIATE * Telephone Encounter - Cherry Johnston RN - 10/02/2021 3:34 PM DNA SEQUENCING ASSOCIATE ----- Message from Santiago Mar MD sent at 10/02/2021 3:33 PM DNA SEQUENCING ASSOCIATE ----- Treated with macrobid. Normally a colonizer, but cath specimen SEQUENCING ASSOCIATE documented in this encounter Plan of Treatment Upcoming Encounters Date Type Department Care Team (Late st Contact Info) Description 12/11/2024 10:30 AM DNA SEQUENCING ASSOCIATE Appointment [facility] Vascular Services [address] [facility] [address] [place] [address] Jarett Reinoso MD [address] [place] [address] Christine Benitez MD [address] [place] [address] Keyshawn Krueger MD [address] [place] [address] Armando Ferro, [address] [phone] documented as of this encounter Visit Diagnoses Not on filedocumented in this encounter Care Teams Clinical Social Worker Relationship Specialty Start Date End Date Diana Mao MD [address] [place] [address] PCP - General 08/05/17 06/14/23 documented as of this encounter
--- OUTSIDE RECORDS SUMMARY | 2024-10-15 16:34 | XMS_ITS | Encounter Summary ---
Author Organization [facility] Address [address] [place] [address] Care Team Providers Care Monorail Crane Operator Name Role Phone Diana Mao MD Primary Care Provider [phone] Encounter Details Date Type Department Care Team (Latest Contact Info) Description 06/28/2014 Hospital Outpatient Visit [facility] OUTPATIENT SERVICES [address] [place] [phone] Diana Mao MD [address] [place] [address] Discharge Disposition: Home or Self Care Social History Tobacco Use Types Packs/Day Years Used Date Smoking Tobacco: Never Assessed Sex and Gender Information Value Date Recorded Sex Assigned at Not on file Gender Identity Not on file Sexual Orientation Not on file documented as of this encounter Plan of Treatment Upcoming Encounters Date Type Department Care Team (Late st Contact Info) Description 12/11/2024 10:30 AM MAGENTO DEVELOPER Appointment [facility] Health Vascular Services [address] [facility], [facility] [address] [place] [address] Jarett Reinoso MD [address] [place], [place] [phone] Christine Benitez MD [address] [place] [phone] Keyshawn Krueger MD [address] [place] [address] Armando Ferro, [address] [address] documented as of this encounter Visit Diagnoses Not on filedocumented in this encounter Care Teams Monorail Crane Operator Relationship Specialty Start Date End Date Diana Mao MD [address] [place] [address] PCP - General 08/05/17 06/14/23 documented as of this encounter
--- OUTSIDE RECORDS SUMMARY | 2024-10-15 16:34 | XMS_ITS | Encounter Summary ---
Author Organization [facility] Address [address] [facility] [place] [address] Care Team Providers Care Heart Coordinator Name Role Phone Diana Mao MD Primary Care Provider [phone] Yanira Meyers LOGGING SHOVEL OPERATOR-MAINTENANCE SHOP WELDER Primary Care Provid er Encounter Details Date Type Department Care Team (Late Contact Info) Description 01/09/2021 Lab Requisition [facility] Care DermPath Lab [address] [facility], [place] [phone] Johnny Dodson Jr., MD [address] [facility] [address] [place] [address] Social History Tobacco Use Types Packs/Day Years [...] (Late Contact Info) Description 12/11/2024 10:30 AM MANUFACTURING WEAVER Appointment [facility] Health Vascular Services [address] [facility], [address] [place] [address] Jarett Reinoso MD [address] [place] [address] Christine Benitez MD [address] [place] [address] Keyshawn Krueger MD [address] [place] [address] [place] [address] [address] documented as of this encounter Procedures Procedure Name Priority Date/Time Associated Diagnosis Comments DERMATOPATHOLOGY Routine 01/08/2021 12:0 0 AM MANUFACTURING WEAVER documented in this encounter Results * DERMATOPATHOLOGY (01/08/2021 12:00 AM MANUFACTURING WEAVER) Case Report Dermatopathology Report ? Case: [id number] ? Authorizing Provider: ??Johnny Dodson Jr., MD ??Collected: ? 01/08/2021 12:00 AM ? Ordering Location: ? [facility] DermPath Lab ?Received: ?01/09/2021 10:42 AM ? Pathologist: ? Reyna Hwang MD ? Specimen: ?Skin, right antecubital skin ? 1 1:51 PM CDT DERMATOPATHOLOGY LABORATORY Final Diagnosis Specimen A. SKIN, right antecubital skin: BASAL CELL CARCINOMA, NODULAR TYPE (C44.612) 1:51 PM CDT DERMATOPATHOLOGY LABORATORY Clinical History Basal cell carcinoma vs irritated seborrheic keratosis vs dermal nevus vs dermatofibroma. 1:51 PM CDT DERMATOPATHOLOGY LABORATORY Gross Description Specimen A: Received is one formalin filled container labeled with the patient's name and designated right antecubital skin. The specimen consists of a shave biopsy measuring 6x5x3 mm. Jar 0. 1:51 PM CDT DERMATOPATHOLOGY LABORATORY Microscopic Description Specimen A. SKIN, right antecubital skin: Within the dermis there are aggregates of basaloid cells with a high nuclear to cytoplasmic ratio and peripheral palisading. 1:51 PM CDT DERMATOPATHOLOGY LABORATORY Disclaimer An external and internal positive and negative controls are appropriate for the histochemical, immunohistochemical and immunofluorescence stain(s) in this case (if any), except where stated explicitly. The performance characteristics of the stain(s) cited in this report were developed and its performance characteristic determined by the Dermatopathology Laboratory at [facility], directed by Dr. Christine Iraheta. These tests need not be, and therefore are not, approved by the [place] Food and Drug Administration. The tests are used for clinical purposes. Billing Codes Specimen Charges Stain Charges 59617 1 1 1:51 PM CDT DERMATOPATHOLOGY LABORATORY Embedded Images 1:51 PM CDT DERMATOPATHOLOGY LABORATORY Pathology/Cytolog y TISSUE SPECIMEN FROM SKIN / Unknown 01/08/2021 01/09/2021 10:42 AM MANUFACTURING WEAVER Johnny Dodson Jr., MD LAB - PATHOLOGY /CYTOLOGY ORDERABLES DERMATOPATHOLOGY LABORATORY [facility] - Department of Dermatology [address] Floor [place], [place] [address] [phone] documented in this encounter Visit Diagnoses Not on filedocumented in this encounter Care Teams Heart Coordinator Relationship Specialty Start Date End Date Diana Mao MD [address] [place] [address] PCP - General 08/05/17 06/14/23 Yanira Meyers, LOGGING SHOVEL OPERATOR-MAINTENANCE SHOP WELDER [address] [place] [phone] PCP - General Nurse Practitioner Family 06/15/23 documented as of this encounter
--- OUTSIDE RECORDS SUMMARY | 2024-10-15 16:34 | XMS_ITS | Encounter Summary ---
Author Organization [facility] Address [address] [facility] [place] [address] Care Team Providers Care Superintendent Commissary Name Role Phone Diana Mao MD Primary Care Provider [phone] Reason for Visit * Reason Comments Med Question Encounter Details Date Type Department Care Team ([facility] st Contact Info) Description 08/10/2021 1:30 PM CDT [facility] [address] [place] [address], [place] [phone] Diana Mao MD [address] [place] [address] Urinary incontinence without sensory awareness (Primary Dx); Need for influenza vaccination; Change in bowel habits; Anemia, unspecified type; 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 chronic kidney disease, unspecified whether stage 3a or 3b CKD (HCC) Social History Tobacco Use Types Packs/Day [...] Sign Reading Time Taken Comments Blood Pressure 150/78 08/10/2021 1:33 PM CDT Pulse 78 08/10/2021 1:33 PM CDT Temperature 36.4 ??C (97.6 ??F) 08/10/2021 1:29 PM CD T Respiratory Rate 18 08/10/2021 1:29 PM CDT Oxygen Saturation 98% 08/10/2021 1:29 PM CDT Inhaled Oxygen Concentration - - Weight 79.6 kg (175 lb 6.4 oz) 08/10/2021 1:29 P M CDT Height 171.5 cm (5' 7.5 ) 08/10/2021 1:29 PM CDT Body Mass Index 27.07 08/10/2021 1:29 PM CDT documented in this encounter Patient Instructions * Patient Instructions* Joanna Alvarado RN - 08/10/2021 1:35 PM CDT BRING YOUR MEDICATIONS TO EVERY VISIT PLEASE For appointments, call us at [phone] and select option 1 or send a [employer] message. PLEASE ARRIVE TO YOUR APPOINTMENTS at least 20-30 minutes before your schedule visit time. NEED AN INSURANCE REFERRAL from us - contact [phone] To request refills, please contact your pharmacy who will reach out to us. If you have changes to your refill prescription, you will need to contact us directly at [phone] and select option 2 orsend your doctor a [employer] message. We request that all prescription refills be requested during regular office phone hours. If your prescription requires a prior authorization, it may take several days for us to get approval from [facility] company before we can refill your prescription. Call your pharmacy first to confirm if there are any refills on file. Please do not wait until you are completely out to prevent any interruption in your medication. Normal business hours are from 8:00 am to 4:30 pm Tuesday through Tuesday. Our fax number is [phone]. If you have been seen anyplace outside of [facility], please have your records and test results [...] day are given to the Geriatric physician bus matron. Please call [phone] and identify yourself as a patient in our practice needing to speak to Geriatric Medicine. The casey saw operator will contact the physician bus matron. You can generally expect a return call within 30 minutes. On weekends, physicians are seeing hospitalized patients and there may be a longer wait. Test and laboratory results: Our practice typically reports lab and test results through letters orMyChart, the [facility] online patient portal. Please allow 5 days from when your tests are completed to receive the results. IF GOING TO [facility] or [facility]--PLEASE TAKE LAB ORDER WITH YOU !! If you did not complete your labs at a [facility] facility or at a commercial lab ([facility]) then we may not have received the results. Please contact the lab and request that they are faxed to us([phone]). For information related to COVID-19, please visit the cdc website at www.cdc.gov. [facility]'s missed appointment policy is: - Patients with 3 consecutively missed appointments OR 3 missed appointments in a 12 month period may be asked to seek consultation outside of [facility]. - A missed appointment is defined as: [...] [facility], [address] [place], [place] [id number] documented in this encounter Progress Notes * Diana Mao MD - 08/10/2021 2:20 PM CDT Patient Name: Kirsty Rea Date: August 10, 2021 Weight: Wt Readings from Last 2 Encounters: 08/10/21 175 lb 6.4 oz (79.6 kg) 02/02/21 177 lb 9.6 oz (80.6 kg) Patient Vitals for the past 48 hrs: Temp Pulse Resp BP 08/10/21 1333 -- 78 -- 150/78 08/10/21 1329 97.6 ??F (36.4 ??C) 78 18 174/84 Complaint: Rash on face (I)History of Present Illness/Interval History (Document L3=more than 1; L4/5=more than 4 elements)(Note onset, duration, location, quality, radiation, severity, timing, context, modifying factors, assoc. Symptoms): had a malar itchy rash tx'd 5 days of prednisone by PA at Urgent care. Urinary incontinence Assessment: Presence of urinary incontinence Fall Assessment: No falls (II) Current Medications: Current Outpatient Medications: ??? furosemide (LASIX) 20 MG tablet, Take 1 tablet by mouth once daily (Patient not taking: Reported on 08/10/2021), Disp: 90 tablet, Rfl: 4 ??? hydroCHLOROthiazide [...] mg by mouth, Disp: , Rfl: ??? [place]-3 Fatty Acids (FISH OIL DELAYED RELEASE) 1000 MG capsule, Take 1 capsule by mouth daily with food, Disp: , Rfl: ??? potassium chloride (KLOR-CON) 20 MEQ packet, Take 1 packet by mouth once daily, Disp: 100 Each,Rfl: 4 ??? tacrolimus (PROTOPIC) 0.1 % ointment, Apply to affected area every 12 hours, Disp: , Rfl: ??? triamcinolone acetonide (KENALOG) 0.1 % cream, APPLY TO RASH ON BACK AND BODY TWICE A DAY NEEDED. AVOID FACE. (Patient not taking: Reported on 08/10/2021), Disp: 45 g, Rfl: 0 ??? vitamin D3-cholecalciferol (CHOLECACIFEROL) 1000 UNITS tablet, Take 1 tablet by mouth once daily, Disp: 100 tablet, Rfl: 3 List updated in record. (III) Past/Interval Medical, Family, Social History(Document L3=0; L4=1; L5=2 or more areas): Change: no change since last ETOH: once a week Tobacco: former Social sometimes her son stays with her. Plays bridge on Tuesday Gets Covid swabs before going over there (IV) Review of Systems: General: WNL appetite Eyes: Thinks she might get macular degenertion some day ENT: HAs Cardiovascular: WNL Pulmonary: WNL Breasts: WNL Gastrointestinal: nausea, diarrhea about once a week. Sometimes with urgency. No cramping Genitourinary: urinary incontinence some leaking over night and during the day, insensate, 2 years,wearing pads. Usually insensate loss of small volumes. Musculoskeletal: Shoulder is much better after PT Skin: rash, itching resolved Neurological: WNL Psychiatry: WNL Endocrinology: WNL Hematological: WNL Sleep: change in sleep pattern feels she needs a nap in the afternoon, wakes up early All other systems normal Test Results reviewed and discussed with pt: N/A (V) Physical Examination: BP 150/78 (BP POSITION: STANDING) Pulse 78 Temp 97.6 ??F (36.4 ??C) Resp 18 Ht 5' 7.5 (1.715 m) Wt175 lb 6.4 oz (79.6 kg) SpO2 98% BMI 27.07 kg/m2 General: WDWN HEENT: teeth: NAD Neck: NAD Lungs: CTA Heart: RRR Breasts: Normal Abdomen: soft, non-tender Genitals/Rectal: not done Neurological: Alert/Oriented: x 3, tremors absent, CN II-XII B hearing aids Musculoskeletal: Gait: ambulatory, no device, w/o assistance Extremities: no CCE 10 Gram Monofilament, Planter Surfaces: N/A Skin: I did not appreciate any rash over her malar area. Was wearing light foundation Pressure ulcers: No euthymic () Assessment and Plan: # incontinence of urine Referral to urogyne # prevention Has mammogram appt, will get dTap as drug store. Colonoscopy at age 66 was wnl documented in this encounter Plan of Treatment Upcoming Encounters Date Type Department Care Team (Late st Contact Info) Description 12/11/2024 10:30 AM ART GALLERY INTERNSHIP Appointment [facility] Vascular Services [address] [facility], [facility] [address] [place] [address] Jarett Reinoso MD [address] [place] [address] Christine Benitez MD [address] [place] [address] Keyshawn Krueger MD [address] [place], [place] [phone] Armando Ferro, [address] [address] documented as of this encounter Visit Diagnoses Diagnosis Urinary incontinence without sensory awareness- Primary Incontinence without sensory awareness Need for influenza vaccination Need for prophylactic vaccination and inoculation against influenza Change in bowel habits Other symptoms involving digestive system Anemia, unspecified type 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 chronic kidney disease, unspecified whether stage 3a or 3b CKD (HCC) documented in this encounter Care Teams Superintendent Commissary Relationship Specialty Start Date End Date Diana Mao MD [address] [place] [address] PCP - General 08/05/17 06/14/23 documented as of this encounter
--- OUTSIDE RECORDS SUMMARY | 2024-10-15 16:34 | XMS_ITS | Encounter Summary ---
Author Organization [facility] Address [address] [place] [address] Care Team Providers Care Breakfast And Room Attendant Name Role Phone Diana Mao MD Primary Care Provider [phone] Reason for Visit * Reason Onset Date Comments Knuckle Bender Other 05/08/2018 Therapy and Housing resources Encounter Details Date Type Department Care Team (Late st Contact Info) Description 05/08/2018 Telephone [facility] Social Work [address], [address] [place] [address] Reji Murillo LMSW [address], [address] [place] [address] Knuckle Bender Other (Therapy and Housing resources) Social History Tobacco Use Types Packs/Day Years [...] encounter Miscellaneous Notes * Telephone Encounter - Reji Murillo LMSW - 05/08/2018 10:23 AM CDT BRADY met with pt during appointment with Dr. Mao on 05/05/2018. Pt reported a number of interpersonalissues with family and also requested resources to assist son find housing. Pt was open to receiving counseling/therapy resources as well as housing resources via mail. SW sent letter and included mental health resources for [place]. SW also included website for affordable housing for pt's son. SW then contacted pt via phone and explained resources being sent. No further SW issues at this time. documented in this encounter Plan of Treatment Upcoming Encounters Date Type Department Care Team (Late st Contact Info) Description 12/11/2024 10:30 AM MANAGING CONSULTANT Appointment [facility] Vascular Services [address] [facility], [address] [place] [address] Jarett Reinoso MD [address] [place] [address] Christine Benitez MD [address] [place] [address] Keyshawn Krueger MD [address] [place] [address] Armando Ferro, [address] [address] documented as of this encounter Visit Diagnoses Not on filedocumented in this encounter Care Teams Breakfast And Room Attendant Relationship Specialty Start Date End Date Diana Mao MD [address] [place] [address] PCP - General 08/05/17 06/14/23 documented as of this encounter
--- OUTSIDE RECORDS SUMMARY | 2024-10-15 16:34 | XMS_ITS | Encounter Summary ---
Author Organization [facility] Address [address] [facility] [place] [address] Care Team Providers Care Release Specialist Name Role Phone Diana Mao MD Primary Care Provider [phone] Reason for Visit * Reason Onset Date Comments Breathing Problem 04/24/2021 Encounter Details Date Type Department Care Team (Late st Contact Info) Description 04/24/2021 Telephone [facility] Geriatrics [address] [place] [address], [place] [phone] Diana Mao MD [address] [place] [address] Breathing Problem Social History Tobacco Use Types Packs/Day Years [...] Telephone Encounter - Joanna Alvarado RN - 04/27/2021 10:06 AM CDT CB pt and advised her that per Dr. Mao, since the SOB has been present for so long, pt should go to . Pt verbalized understanding. * Telephone Encounter - AimeeShawnroby Shah - 04/27/2021 8:33 AM CDT Pt called, did not receive reply to last Tuesday's SOB report. When she walks about 1.5 miles, she gets SOB. She has to stop 5-6 times, never did that before. Is not wearing a mask when walking. She cannot think of anything else that has changed to have brought this on. Always had issues with retaining water, but her ankles are not swollen now, is drinking lots of water. Tuesday was her last walk, has not walked since then until she knows what's going on. The SOB has decreased since she's just been around the house. Feeling a little lethargic since not getting any exersize, Denies chest being tight when she is SOB. Pt will be home today until she goes for PT for shoulder at 1pm; has been going for the last month,is not strenuous. Will be back home around 2:45. Asked her to give us a call if she hasn't receivedone from PCP yet. (cell) JUNG: 02.02.21 RTC: 08/10/21 * Telephone Encounter - Joanna Alvarado RN - 04/24/2021 10:16 AM CDT Pt called C/O SOB x 2 weeks and fatigue x 1 week. Pt endorses swelling of BLE but states that is normal for her, has been taking her HCTZ regularly. Stated does not want to go to for it, just wants to know what Dr. Mao thinks she should do. CB: [phone] JUNG: 02/02/21 NOV: 08/10/21 documented in this encounter Plan of Treatment Upcoming Encounters Date Type Department Care Team (Late st Contact Info) Description 12/11/2024 10:30 AM TAB CUTTER Appointment [facility] Vascular Services [address] [facility], [address] [address] Jarett Reinoso MD [address] [place], [place] [address] Christine Benitez MD [address] [place] [address] Keyshawn Krueger MD [address] [place], [place] [address] [place] [address] [address] documented as of this encounter Visit Diagnoses Not on filedocumented in this encounter Care Teams Release Specialist Relationship Specialty Start Date End Date Diana Mao MD [address] [place] [address] PCP - General 08/05/17 06/14/23 documented as of this encounter
--- OUTSIDE RECORDS SUMMARY | 2024-10-15 16:34 | XMS_ITS | Encounter Summary ---
Author Organization [facility] Address [address] [place] [address] Care Team Providers Care Butter Wrapper Name Role Phone Diana Mao MD Primary Care Provider [phone] Reason for Visit * Reason Onset Date Comments Question 08/12/2021 Encounter Details Date Type Department Care Team (Late st Contact Info) Description 08/12/2021 Telephone [facility] [address] [place] [address], [place] [phone] Diana Mao MD [address] [place] [address] Question Social History Tobacco Use Types Packs/Day [...] * Telephone Encounter - Partha Seymour - 08/12/2021 11:20 AM CDT Pt called demanding the name of the doctor that you referred her to in Urogynecology. I informed the pt that [facility] has made 2 attempts to get her scheduled and she has not check her msgs. Pt refuses to use MyChart and only wants to talk to you. documented in this encounter Plan of Treatment Upcoming Encounters Date Type Department Care Team (Late st Contact Info) Description 12/11/2024 10:30 AM MANAGER SYSTEMS [address] [facility] Vascular Services [address] [facility], [address] [place] [address] Jarett Reinoso MD [address] [place], [place] [phone] Christine Benitez MD [address] [place] [address] Keyshawn Krueger MD [address] [place] [address] Armando Ferro, [address] [phone] documented as of this encounter Visit Diagnoses Not on filedocumented in this encounter Care Teams Butter Wrapper Relationship Specialty Start Date End Date Diana Mao MD [address] [place] [address] PCP - General 08/05/17 06/14/23 documented as of this encounter
--- OUTSIDE RECORDS SUMMARY | 2024-10-15 16:34 | XMS_ITS | Encounter Summary ---
Author Organization [facility] Address [address] [place] [address] Care Team Providers Care Cardiovascular Sonographer Name Role Phone Diana Mao MD Primary Care Provider [phone] Reason for Visit * Reason Onset Date Comments Question 08/20/2020 Rash Encounter Details Date Type Department Care Team (Late st Contact Info) Description 08/20/2020 Telephone [facility] Endocrinology, Diabetes and Metabolism [address] [place] [address], [facility] [place] [phone] Diana Mao MD [address] [place], [place] [address] [place], [place] [id number] Question (Rash) Social History Tobacco Use Types Packs/Day Years [...] Telephone Encounter - Marie Bennett LPN - 08/20/2020 10:32 AM CDT Pt called to ask for medication for a rash on left wrist and arm, it is very itchy, this has been going on 1 month. She is also c/o limping the past few months and is still having problems with that she is waiting for instruction as to what to do next. Can you please give her a call at [phone] advise? JUNG: 07.30.2020 NOV: None documented in this encounter Plan of Treatment Upcoming Encounters Date Type Department Care Team (Late st Contact Info) Description 12/11/2024 10:30 AM STONEWORKER Appointment [facility] Vascular Services [address] [facility] [address] [place], [place] [phone] Jarett Reinoso MD [address] [place], [place] [phone] Christine Benitez MD [address] [place] [address] Keyshawn Krueger MD [address] [place] [address] Armando Ferro, [address] [address] [phone] documented as of this encounter Visit Diagnoses Not on filedocumented in this encounter Care Teams Cardiovascular Sonographer Relationship Specialty Start Date End Date Diana Mao MD [address] [place] [address] PCP - General 08/05/17 06/14/23 documented as of this encounter
--- OUTSIDE RECORDS SUMMARY | 2024-10-15 16:34 | XMS_ITS | Encounter Summary ---
Author Organization [facility] Address [address] [place] [address] Care Team Providers Care Geographic Information Systems Director Name Role Phone Diana Mao MD Primary Care Provider [phone] Reason for Visit * Reason Onset Date Comments Breathing Problem 06/10/2021 Occasional SOB ; leg swelling (nothing new) Encounter Details Date Type Department Care Team (Late st Contact Info) Description 06/10/2021 Telephone [facility] [address] [place] [address], [facility] [place] [phone] Diana Mao MD [address] [place] [id number] Breathing Problem (Occasional SOB; leg swelling (nothing new)) Social History Tobacco Use Types Packs/Day Years [...] Telephone Encounter - Aimee Karly Shah - 06/11/2021 12:49 PM CDT Noticed that pt apparently called back 10 mins later and canceled the appt we made for next as no longer needed. Called to inquire what's going on; lmtc on her VM if she still needs something from [place] to call [phone] and press the option for the nurse. Otherwise, if she truly no longer has the problems she reported that were of an urgent nature, we will see her in Oct at her regularly scheduled visit. JUNG: 02.02.21 RTC: 08.10.21 * Telephone Encounter - Karly Yu - 06/10/2021 2:12 PM CDT Pt called to report SOB and fluid/swelling in legs. Asked her if she ever went to when she reported this in March. She stated she didn't. She goes back/forth from it being an issue to needing to beseen urgently. Said the PT she had on her should was wonderful. It was 12-wks and she feels that issue is resolved. There was an opening next , went ahead and put her on with Dr. Celestin and explained it was Dr. Mao's fellow. Pt was pleased with this outcome, didn't really want to wait til Oct to be seen. Will ask RN to check in on the pt Th or Tue to be sure there are no concerns. No nursing avail today. JUNG: 02.02.21 documented in this encounter Plan of Treatment Upcoming Encounters Date Type Department Care Team (Late st Contact Info) Description 12/11/2024 10:30 AM SPECIAL WEAPONS AND TACTICS OFFICER Appointment [facility] Vascular Services [address] [facility], [address] [place] [address] Jarett Reinoso MD [address] [place], [place] [phone] Christine Benitez MD [address] [place] [phone] Keyshawn Krueger MD [address] [place], [place] [phone] [place] [address] [address] documented as of this encounter Visit Diagnoses Not on filedocumented in this encounter Care Teams Geographic Information Systems Director Relationship Specialty [place] [address] [place] [address] PCP - General 08/05/17 06/14/23 documented as of this encounter
--- OUTSIDE RECORDS SUMMARY | 2024-10-15 16:34 | XMS_ITS | Encounter Summary ---
Author Organization [facility] Address [address] [facility] [place] [address] Care Team Providers Care Switchboard And Control Room Operator Name Role Phone Diana Mao MD Primary Care Provider [phone] Encounter Details Date Type Department Care Team (Latest Contact Info) Description 07/30/2020 12:08 PM CDT - 07/30/2020 11:59 PM CDT Hospital Encounter [facility] OP [address] [place] [phone] Tariq Antoine, OUTREACH TEAM MEMBER-AQUACULTURE DIRECTOR [address] [facility] [address] [facility] [place] [phone] Discharge Disposition: Home or Self Care Social [...] AM CDT documented as of this encounter Medications at Time of Discharge Medication Sig Dispensed Refills Start Date End Date furosemide (LASIX) 20 MG tablet Take 1 tablet by mouth once daily 90 tablet 4 04/06/2019 08/10/2021 hydroCHLOROthiazide (MICROZIDE) 12.5 MG capsule Take 1 capsule by mouth once daily 90 capsule 3 07/30/2020 12/28/2021 labetalol (NORMODYNE; TRANDATE) 200 MG tabletIndications:Essen tial (primary) hypertension Take 1 tablet by mouth 2 times daily 180 tablet 3 02/19/2019 12/28/2021 Multiple Vitamins-Minerals (ICAPS AREDS 2 PO) 2 NIFEdipine CR 24hr (ADALAT CC) 90 MG tablet Take 90 mg by mouth 11/27/2019 12/28/19 22 potassium chloride (KLOR-CON) 20 MEQ packet Take 1 packet by mouth once daily 100 Each 4 09/05/2019 08/10/2021 tacrolimus (PROTOPIC) 0.1 % ointment Apply to affected area every 12 hours 12/05/2012 08/10/2021 vitamin D3-cholecalciferol (CHOLECACIFEROL) 1000 UNITS tabletIndications:Essen tial (primary) hypertension Take 1 tablet by mouth once daily 100 tablet 3 05/05/2018 09/29/2021 documented as of this encounter Plan of Treatment Upcoming Encounters Date Type Department Care Team (Late st Contact Info) Description 12/11/2024 10:30 AM OUTPATIENT PROGRAM COORDINATOR Appointment [facility] Vascular Services [address] [facility] [address] [place], [place] [phone] Jarett Reinoso MD [address] [place], [place] [phone] Christine Benitez MD [address] [place] [phone] Keyshawn Krueger MD [address] [place], [place] [phone] [place] [address] [phone] documented as of this encounter Procedures Procedure Name Priority Date/Time Associated Diagnosis Comments XR KNEE LEFT 3VW Routine 07/30/2020 12:2 3 PM CDT Acute pain of left knee documented in this encounter Results * XR KNEE LEFT 3VW (07/30/2020 12:23 PM CDT) Anatomical Region Laterality Modality Lower Extremity Radiographic Marychuy ging 07/30/2020 2:01 PM CDT Impressions 07/30/2020 2:03 PM CDT Impression: Mild medial compartment predominant tricompartmental left knee osteoarthritis. This report was electronically signed by FERNANDO SILVA ??on 07/30/2020 2:03 PM . Narrative 07/30/2020 2:03 PM CDT Examination: XR KNEE LEFT 3VW History:Left knee pain Findings: No comparisons are available. Alignment of the left knee is normal. There is mild medial compartment predominant tricompartmental left knee osteoarthritis. There is no acute fracture. There is no knee effusion. Procedure Note Fernando Silva MD - 07/30/2020 Examination: XR KNEE LEFT 3VW History:Left knee pain Findings: No comparisons are available. Alignment of the left knee is normal. There is mild medial compartment predominant tricompartmental left knee osteoarthritis. There is no acute fracture. There is no knee effusion. Impression: Mild medial compartment predominant tricompartmental left knee osteoarthritis. This report was electronically signed by FERNANDO SILVA on 07/30/2020 2:03PM . Tariq Antoine OUTREACH TEAM MEMBER-AQUACULTURE DIRECTOR DIAGNOSTIC IMAGING ORDERABLES documented in this encounter Visit Diagnoses Diagnosis Acute pain of left knee documented in this encounter Care Teams Switchboard And Control Room Operator Relationship Specialty Start Date End Date Diana Mao MD [address] [place] [address] PCP - General 08/05/17 06/14/23 documented as of this encounter
--- OUTSIDE RECORDS SUMMARY | 2024-10-15 16:34 | XMS_ITS | Encounter Summary ---
Author Organization [facility] Address [address] [place] [address] Care Team Providers Care Workday Financials Consultant Name Role Phone Diana Mao MD Primary Care Provider [phone] Reason for Visit * Reason Comments Hypertension followup Encounter Details Date Type Department Care Team (Late st Contact Info) Description 04/06/2019 1:20 PM CDT Office Visit [facility] [address] [place] [address] Rae Neil MD [address] [address] Chronic kidney disease, stage 2 (mild) (Primary Dx); Hypertensive chronic kidney disease with stage 1 through stage 4 chronic kidney disease, or unspecified chronic kidney disease; Colon cancer screening; Need for shingles vaccine Social History Tobacco Use Types Packs/Day Years [...] Sign Reading Time Taken Comments Blood Pressure 142/70 04/06/2019 1:11 PM CDT Pulse 69 04/06/2019 1:11 PM CDT Temperature 36.4 ??C (97.5 ??F) 04/06/2019 1:11 PM CD T Respiratory Rate 18 04/06/2019 1:10 PM CDT Oxygen Saturation 97% 04/06/2019 1:10 PM CDT Inhaled Oxygen Concentration - - Weight 78.7 kg (173 lb 8 oz) 04/06/2019 1:10 PM CDT Height 171.5 cm (5' 7.5 ) 04/06/2019 1:10 PM CDT Body Mass Index 26.77 04/06/2019 1:10 PM CDT documented in this encounter Patient Instructions * Patient Instructions* Rae Neil MD - 04/06/2019 1:51 PM CDT Zoster Vaccine Recombinant, Adjuvanted (By injection) Zoster Vaccine Recombinant, Adjuvanted (ZOS-ter VAX-een cti-COP-yb-ned, YB-vbf-qtg-gerard) Prevents herpes zoster (shingles). Brand Name(s): Shingrix There may be other brand names for this medicine. When This Medicine Should Not Be Used: This medicine is not right for everyone. You should not receive it if you had an allergic reaction to zoster vaccine. How to Use This Medicine: Injectable ?? Your doctor will prescribe your exact dose and tell you how often it should be given. This medicine is given as a shot into one of your muscles. ?? A nurse or other health provider will give you this medicine. ?? Missed dose: Call your doctor or pharmacist for instructions. Drugs and Foods to Avoid: Ask your doctor or pharmacist before using any other medicine, including nhuy-gok-fyptyun medicines, vitamins, and herbal products. ?? Some medicines may affect how zoster vaccine works. Tell your doctor if you are receiving inactivated influenza vaccine or medicine that can weaken your immune system. Warnings While Using This Medicine: ?? Tell your doctor if you are or , or if you have a weak immune system. ?? Your doctor will check your progress and the effects of this medicine at regular visits. Keep all appointments. Possible Side Effects While Using This Medicine: Call your doctor right away if you notice any of these side effects: ?? Allergic reaction: Itching or hives, swelling in your face or hands, swelling or tingling in your mouth or throat, chest tightness, trouble breathing If you notice these less serious side effects, talk with your doctor: ?? Headache ?? Joint or muscle pain ?? Pain, itching, burning, swelling, or a lump under your skin where the shot was given If you notice other side effects that you think are caused by this medicine, tell your doctor. Call your doctor for medical advice about side effects. You may report side effects to FDA at 8-727-ZCB-2784 ?? Copyright [employer] 2018 Information is for End User's use only and may not be sold, redistributed or otherwise used for commercial purposes. The above information is an forestry aid only. It is not intended as medical advice for individual conditions or treatments. Talk to your doctor, nurse or pharmacist before following any medical regimen to see if it is safe and effective for you. documented in this encounter Progress Notes * Trever Sweet MD - 04/06/2019 1:57 PM CDT Geriatric Clinic Follow-Up Note 04/06/2019 1:57 PM 78 year old white female presents to the clinic for follow up of HTN. She has no complaint of headache, dizziness or blurry vision. Patient does not check her BP at home. No complaint of sob, cough or chest pain. No fall in the last 1 year. She was recently seen by the sales teacher and a BMP was done in January (creatinine 1.5). She has no complaint of urinary incontinence or constipation. Able to do ADLs and IADLs without assistance. ROS: Complains of wart like skin lesions on her abdomen, no pruritus, all other systems reviewed are negative. Current Meds: Current Outpatient Prescriptions on File Prior to Visit Medication Sig Dispense Refill ??? hydroCHLOROthiazide (MICROZIDE) 12.5 MG capsule Take 1 capsule by mouth once daily 90 capsule 3 ??? labetalol (NORMODYNE; TRANDATE) 200 MG tablet Take 1 tablet by mouth 2 times daily 180 tablet 3 ??? NIFEdipine CR osmotic 24hr (PROCARDIA-XL) 90 MG tablet Take 1 tablet by mouth once daily for 90days 90 tablet 3 ??? vitamin D3-cholecalciferol (CHOLECACIFEROL) 1000 UNITS tablet Take 1 tablet by mouth once [id number] tablet 3 No current facility-administered medications on file prior to visit. Vitals: Vitals: 04/06/19 1310 04/06/19 1311 BP: 148/74 142/70 Pulse: 73 69 Resp: 18 Temp: 97.5 ??F (36.4 ??C) 97.5 ??F (36.4 ??C) SpO2: 97% Weight: 173 lb 8 oz (78.7 kg) Height: 5' 7.5 (1.715 m) Weight: Wt Readings from Last 2 Encounters: 04/06/19 : 173 lb 8 oz (78.7 kg) 09/08/18 : 182 lb 14.4 oz (83 kg) Physical Exam: General:Elderly white female HEENT: NC/AT, PERRL, not pale, anicteric Neck: No JVD or lymphadenopathy Resp: CTA, no rhonchi or crackles Cardio: RRR, S1S2 heard, no murmur GI: Soft, NT, no rebound or guarding Peripheral vascular: No pedal edema GERTRUDIS/Extremity: No upper extremity swelling Neuro: A & O x 3, muscle power 5/5 all extremities Skin: Raised wart like skin lesions noted on the abdomen Psych: Normal mood and affect Assessment and Plan 1. HTN - BP stable Continue Nifedipine, Labetalol and HCTZ Not a candidate for NOY inhibitor because of renal function. 2. CKD III - Creatinine stable, follow up with nephrology. 3. Seborrheic keratosis - None pruritic, no further treatment indicated. 4. Weight Loss - encouraged to eat regularly meals. Also, exercise frequently. 5. HM Colonosocpy at age 66. Cologuard requested. Shingrix prescription written. Patient seen and discussed with attending, Dr Edgar Neil. Trever Sweet MD, Geriatric Fellow Pager: [phone] Associated attestation - Rae Neil MD - 04/07/2019 4:49 PM CDT Patient seen and discussed with Dr. Sweet and agree with the documented history, note, and plan. * Rae Neil MD - 04/06/2019 1:24 PM CDT Attending Note: seen for htn. Patient seen and examined with Dr. Sweet. I confirm the history, physical findings, assessment, and plan as documented. My additions and/or exceptions are noted below: Subjective: 1. HTN:no c/o lerner dizziness or vision changes. On 3 bp medications. Not on NOY due to renal failure and unclear why on ARB but this is managed by sales teacher. Last labs 01/2019 with creat 1.5. 2. Seborrheic keratosis: has many on abd and wanting options for managing. Understands that these are not easily managed when extensive in location. No pruritus or lesions with bleeding or pain. 3. HCM: has interest in Cologuard screening for colon CA (last done 12 years ago at age 66). Had zostavax but interested in shingrix. UTD on pneumonia vaccine. 4. Weight loss: somewhat intentional. Patient is not exercising with regularity or with target for weight loss. No leg swelling. No abd pain or nausea. PMH: I have reviewed the patient's medical history in detail and updated the computerized patient record. FH/SH: I have reviewed the patient's medical history in detail and updated the computerized patientrecord. ROS: gen weight loss; : no dysuria, no UI, GI: no abd pain and no constipation, ENT: [place], no ST or nasal sx. Objective: Vitals: 04/06/19 1310 04/06/19 1311 BP: 148/74 142/70 Pulse: 73 69 Resp: 18 Temp: 97.5 ??F (36.4 ??C) 97.5 ??F (36.4 ??C) SpO2: 97% Weight: 173 lb 8 oz (78.7 kg) Height: 5' 7.5 (1.715 m) Current Outpatient Prescriptions: ??? hydroCHLOROthiazide (MICROZIDE) 12.5 MG capsule, Take 1 capsule by mouth once daily, Disp: 90 capsule, Rfl: 3??? labetalol (NORMODYNE; TRANDATE) 200 MG tablet, Take 1 tablet by mouth 2 times daily, Disp: 180 tablet, Rfl: 3??? NIFEdipine CR osmotic 24hr (PROCARDIA-XL) 90 MG tablet, Take 1 tablet by mouth once daily for 90 days, Disp: 90 tablet, Rfl: 3??? vitamin D3-cholecalciferol (CHOLECACIFEROL) 1000 UNITS tablet, Take 1 tablet by mouth once daily, Disp: 100 tablet, Rfl: 3 Physical Examination: Exam: Alert, OX3, not anxious or confused Resp: CTA, equal BS, no rales/wheeze CV: RRR no murmur or gallop Abd: + BS, soft, NT/ND, no masses Ext: no edema in bilat LE Joint: no synovisits in bilat knees or ankles Assessment and Plan: ??? Chronic kidney disease, stage 2 (mild): continue f/u with nephrology. Renal function not changing. ??? Hypertensive chronic kidney disease: continue with current regimen. At goal based on age and comorbidity. Renal function stable. ??? Colon cancer screening: ordered cologuard after d/w patient about colon screening. ??? Need for shingles vaccine: provided Rx for shingrix. Patient seen and discussed with Dr. Sweet and agree with the documented history, note, and plan. Followup in: [address] Mao documented in this encounter Plan of Treatment Upcoming Encounters Date Type Department Care Team (Late st Contact Info) Description 12/11/2024 10:30 AM STORE ADMINISTRATIVE ASSISTANT Appointment [facility] Vascular Services [address] [facility], [address] [place] [address] Jarett Reinoso MD [address] [place], [place] [phone] Christine Benitez MD [address] [place] [phone] Keyshawn Krueger MD [address] [place] [address] Armando Ferro, [address] [phone] Scheduled Orders Name Type Priority Associated Diagnoses Orde r Schedule [id number] COLOGUARD TEST *Associate with Z12.11 OR Z12.12 Dx Codes* Lab Routine Colon cancer screening Ordered: 04/06/2019 documented as of this encounter Visit Diagnoses Diagnosis Chronic kidney disease, stage 2 (mild)- Primary Hypertensive chronic kidney disease with stage 1 through stage 4 chronic kidney disease, or unspecified chronic kidney disease Colon cancer screening Special screening for malignant neoplasms, colon Need for shingles vaccine Need for prophylactic vaccination and inoculation against varicella documented in this encounter Care Teams Workday Financials Consultant Relationship Specialty Start Date End Date Diana Mao MD [address] [place] [address] PCP - General 08/05/17 06/14/23 documented as of this encounter
--- OUTSIDE RECORDS SUMMARY | 2024-10-15 16:34 | XMS_ITS | Encounter Summary ---
Author Organization [facility] Health Address [address] [place] [address] Care Team Providers Care Athletic Equipment Manager Name Role Phone Diana Mao MD Primary Care Provider [phone] Encounter Details Date Type Department Care Team (Late Contact Info) Description 02/07/2018 [facility] [address] [place] [address] Diana Mao MD [address] [place] [address] Stage 2 chronic kidney disease Social History Tobacco Use Types Packs/Day Years [...] (Late Contact Info) Description 12/11/2024 10:30 AM CASINO CAGE MANAGER Appointment [facility] Vascular Services [address] [facility] [address] [place] [address] Jarett Reinoso MD [address] [place] [address] Christine Benitez MD [address] [place] [phone] Keyshawn Krueger MD [address] [place], [place] [phone] Armando Ferro, [address] [address] documented as of this encounter Visit Diagnoses Diagnosis Stage 2 chronic kidney disease documented in this encounter Care Teams Athletic Equipment Manager Relationship Specialty Start Date End Date Diana Mao MD [address] [place] [address] PCP - General 08/05/17 06/14/23 documented as of this encounter
--- OUTSIDE RECORDS SUMMARY | 2024-10-15 16:34 | XMS_ITS | Encounter Summary ---
Author Organization [facility] Address [address] [place] [address] Care Team Providers Care Slat Basket Top Maker Name Role Phone Diana Mao MD Primary Care Provider [phone] Reason for Visit * Reason Onset Date Comments Refill Request 02/19/2019 Encounter Details Date Type Department Care Team (Late Contact Info) Description 02/19/2019 Refill [facility] [address] [place] [address] Diana Mao MD [address] [address] Refill Request Social History Tobacco Use Types [...] Telephone Encounter - Ree Dozier RN - 02/19/2019 9:17 AM CDT Patient requesting to have new prescriptions sent to new pharmacy. Becky PINEDA documented in this encounter Plan of Treatment Upcoming Encounters Date Type Department Care Team (Late Contact Info) Description 12/11/2024 10:30 AM SALES ORDER CLERK Appointment [facility] Vascular Services [address] [facility] [address] [place] [address] Jarett Reinoso MD [address] [place], [place] [phone] Christine Benitez MD [address] [place] [phone] Keyshawn Krueger MD [address] [place], [place] [phone] Armando Ferro, [address] [address] [phone] documented as of this encounter Visit Diagnoses Diagnosis Essential (primary) hypertension Unspecified essential hypertension documented in this encounter Care Teams Slat Basket Top Maker Relationship Specialty Start Date End Date Diana Mao MD [address] [place] [address] PCP - General 08/05/17 06/14/23 documented as of this encounter
--- OUTSIDE RECORDS SUMMARY | 2024-10-15 16:34 | XMS_ITS | Encounter Summary ---
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 ; Localized scleroderma; Other specified disorders of bone density and structure, unspecified site; Hypokalemia; Essential (primary) hypertension; Other amnesia; Encounter for screening mammogram for breast cancer; Stage 2 chronic kidney disease; Hyperglycemia Social History Tobacco Use Types Packs/Day Years [...] (Late Contact Info) Description 12/11/2024 10:30 AM REWORK MACHINE OPERATOR Appointment [facility] Vascular Services [address] [facility], [address] [place] [address] Jarett Reinoso MD [address] [place], [place] [phone] Christine Benitez MD [address] [place] [address] Keyshawn Krueger MD [address] [place], [place] [address] Armando Ferro, [address] [phone] documented as of this encounter Visit Diagnoses Diagnosis 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
--- OUTSIDE RECORDS SUMMARY | 2024-10-15 16:34 | XMS_ITS | Encounter Summary ---
Author Organization [facility] Address [address] [place] [address] Care Team Providers Care Sales Agent Financial Report Service Name Role Phone Diana Mao MD Primary Care Provider [phone] Encounter Details Date Type Department Care Team (Latest Contact Info) Description 01/04/2020 3:00 PM HEAD OF ADVERTISING - 01/04/2020 11:59 PM [facility] Hospital Encounter [facility] DRAW STATION [address] [place] [address] Diana Mao MD [address] [facility] 2[address] [facility] [place] [address] Discharge Disposition: Home or Self Care Social [...] on file documented as of this encounter Medications at Time of Discharge Medication Sig Dispensed Refills Start Date End Date furosemide (LASIX) 20 MG tablet Take 1 tablet by mouth once daily 90 tablet 4 04/06/2019 08/10/2021 hydroCHLOROthiazide (HYDRODIURIL) 25 MG tabletIndications:Essen tial hypertension Take 1 tablet by mouth once daily 90 tablet 4 01/04/2020 07/30/2020 hydroCHLOROthiazide (MICROZIDE) 12.5 MG capsule Take 1 capsule by mouth once daily 90 capsule 3 02/19/2019 07/30/2020 labetalol (NORMODYNE; TRANDATE) 200 MG tabletIndications:Essen tial (primary) hypertension Take 1 tablet by mouth 2 times daily 180 tablet 3 02/19/2019 12/28/2021 NIFEdipine CR 24hr (ADALAT CC) 90 MG tablet Take 90 mg by mouth 11/27/2019 12/28/19 22 NIFEdipine CR 24hr (ADALAT CC) 90 MG tablet Take 90 mg by mouth 11/27/2019 02/26/20 20 potassium chloride (KLOR-CON) 20 MEQ packet Take [...] st Contact Info) Description 12/11/2024 10:30 AM HEAD OF ADVERTISING Appointment [facility] Vascular Services [address] [facility] [address] [place] [address] Jarett Reinoso MD [address] [place], [place] [phone] Christine Benitez MD [address] [place] [phone] Keyshawn Krueger MD [address] [place], [place] [phone] [place] [address] [phone] documented as of this encounter Procedures Procedure Name Priority Date/Time Associated Diagnosis Comments URINALYSIS W/MICROSCOPIC NO CULTURE Routine 01/04/2020 3:29 PM HEAD OF ADVERTISING CKD (chronic kidney disease) stage 4, GFR 15-29 ml/min (HCC) Essential hypertension CBC W AUTO DIFFERENTIAL Routine 01/04/2020 3:15 PM HEAD OF ADVERTISING CKD (chronic kidney disease) stage 4, GFR 15-29 ml/min (HCC) Essential hypertension BASIC METABOLIC PANEL (CALCIUM TOTAL) Routine 01/04/2020 3:15 PM HEAD OF ADVERTISING CKD (chronic kidney disease) stage 4, GFR 15-29 ml/min (HCC) Essential hypertension VITAMIN B12 Routine 01/04/2020 3:15 PM HEAD OF ADVERTISING CKD (chronic kidney disease) stage 4, GFR 15-29 ml/min (HCC) Essential hypertension TSH Routine 01/04/2020 3:15 PM HEAD OF ADVERTISING CKD (chronic kidney disease) stage 4, GFR 15-29 ml/min (HCC) Essential hypertension documented in this encounter Results * (ABNORMAL) URINALYSIS W/MICROSCOPIC NO CULTURE (01/04/2020 3:29 PM HEAD OF ADVERTISING) Color UA Yellow Straw, Yellow, Colorless 01/04/2020 4:20 PM [facility] Clarity UA Cloudy(A) Clear, Slt Cloudy 01/04/2020 4:20 PM [facility] Specific [place] UA 1.015 1.005 - 1.030 01/04/2020 4:20 PM [facility] pH UA 6.0 5.0 - 8.0 pH 01/04/2020 4:20 PM [facility] Protein UA 2+(A) Negative mg/dL 01/04/2020 4:20 PM [facility] Glucose UA Negative Negative mg/dL 01/04/2020 4:20 PM [facility] Ketone UA Negative Negative mg/dL 01/04/2020 4:20 PM [facility] Bilirubin UA Negative Negative mg/dL 01/04/2020 4:20 PM [facility] Blood UA Negative Negative 01/04/2020 4:20 PM [facility] Nitrite UA Negative Negative 01/04/2020 4:20 PM HEAD [facility] ADVERTISING [facility] Leukocyte Esterase 3+(A) Negative 01/04/2020 4:20 PM [facility] Urobilinogen UA Negative Negative mg/dL 01/04/2020 4:20 PM [facility] RBC UA 3-5 None Seen, 0-2, 3-5 /HPF 01/04/2020 4:20 PM [facility] WBC UA 21-50(A) None Seen, 0-5 /HPF 01/04/2020 4:20 PM [facility] Bacteria UA Trace None, Trace /HPF 01/04/2020 4:20 PM [facility] Squamous Epithelial Cells UA 11-20(A) None Seen, 0-2 /HPF 01/04/2020 4:20 PM [facility] Mucus UA 1+ None, 1+ /LPF 01/04/2020 4:20 PM [facility] Transitional Epithelial Cells UA 0-2 None Seen, 0-2 /HPF 01/04/2020 4:20 PM [facility] Hyaline Casts UA 3-5(A) None Seen, 0-2 /LPF 01/04/2020 4:20 PM [facility] Urine URINE SPECIMEN OBTAINED BY CLEAN CATCH PROCEDURE / Unknown Collection / Unknown 01/04/2020 3:29 PM HEAD OF ADVERTISING 01/04/2020 3:56 PM HEAD OF ADVERTISING [facility] - 01/04/2020 4:20 PM HEAD OF ADVERTISING Diana Moa MD LAB - URINALYSIS ORD ERABLES [facility] [address] [place] [address] * (ABNORMAL) CBC WITH DIFFERENTIAL (01/04/2020 3:15 PM HEAD OF ADVERTISING) WBC 5.9 3.5 - 10.5 10? 3 /uL 01/04/2020 4:15 PM [facility] RBC 3.82(L) 3.90 - 5.00 10? 6 /uL 01/04/2020 4:15 PM [facility] Hemoglobin 10.7(L) 12.0 - 15.5 g/dL 01/04/2020 4:15 PM [facility] Hematocrit 32.5(L) 35.0 - 45.0 % 01/04/2020 4:15 PM [facility] MCV 85.1 81.0 - 97.0 fL 01/04/2020 4:15 PM [facility] MCH 28.0 28.0 - 34.0 pg 01/04/2020 4:15 PM [facility] MCHC 32.9 32.0 - 36.0 g/dL 01/04/2020 4:15 PM [facility] Platelet Count 269 150 - 400 10? 3 /uL 01/04/2020 4:15 PM [facility] RDW-SD 40.6 36.0 - 50.0 fL 01/04/2020 4:15 PM [facility] RDW-CV 13.1 11.2 - 14.8 % 01/04/2020 4:15 PM [facility] MPV 9.3 9.3 - 12.8 fL 01/04/2020 4:15 PM [facility] nRBC Absolute 0.00 0 10? 3 /uL 01/04/2020 4:15 PM [facility] nRBC Auto 0.0 0 /100 WBC 01/04/2020 4:15 PM [facility] Neutrophils % 51.6 35.0 - 70.0 % 01/04/2020 4:15 PM [facility] Lymphocytes % 30.5 19.7 - 55.1 % 01/04/2020 4:15 PM [facility] Monocytes % 12.3 3.0 - 15.0 % 01/04/2020 4:15 PM [facility] Eosinophils % 4.6 0.0 - 6.0 % 01/04/2020 4:15 PM [facility] Basophil % 0.8 0.0 - 1.5 % 01/04/2020 4:15 PM [facility] Neutrophils Absolute 3.1 1.6 - 7.0 10? 3 /uL 01/04/2020 4:15 PM [facility] Lymphocyte Absolute 1.8 0.8 - 2.9 10? 3 /uL 01/04/2020 4:15 PM [facility] Monocytes Absolute 0.73(H) 0.14 - 0.66 10? 3 /uL 01/04/2020 4:15 PM [facility] Eosinophils Absolute 0.27 0.00 - 0.45 10? 3 /uL 01/04/2020 4:15 PM HEAD OF ADVERTISING [facility] Basophils Absolute 0.05 0.00 - 0.06 10? 3 /uL 01/04/2020 4:15 PM HEAD OF ADVERTISING [facility] Immature Granulocytes % 0.2 0.0 - 1.0 % 01/04/2020 4:15 PM HEAD OF ADVERTISING [facility] Blood BLOOD SPECIMEN / Unknown Lab Venipuncture / Unknown 01/04/2020 3:15 PM HEAD OF ADVERTISING 01/04/2020 3:56 PM HEAD OF ADVERTISING Diana Mao MD LAB - HEMATOLOGY ORD [place] [address] [phone] * VITAMIN B12 (01/04/2020 3:15 PM HEAD OF ADVERTISING) Vitamin B12 809 213 - 816 pg/mL 01/04/2020 5:19 PM HEAD OF ADVERTISING [facility] Blood BLOOD SPECIMEN / Unknown Lab Venipuncture / Unknown 01/04/2020 3:15 PM HEAD OF ADVERTISING 01/04/2020 3:56 PM HEAD OF ADVERTISING Diana Mao MD LAB - CHEMISTRY PATRICIA CASIANO [address] [phone] * TSH (01/04/2020 3:15 PM HEAD OF ADVERTISING) TSH 2.452 0.350 - 4.940 uIU/mL 01/04/2020 5:19 PM HEAD OF ADVERTISING [facility] Blood BLOOD SPECIMEN / Unknown Lab Venipuncture / Unknown 01/04/2020 3:15 PM HEAD OF ADVERTISING 01/04/2020 3:56 PM HEAD OF ADVERTISING Diana Mao MD LAB - CHEMISTRY [place] [address], [facility] [phone] * (ABNORMAL) BASIC METABOLIC PANEL (CALCIUM TOTAL) (01/04/2020 3:15 PM HEAD OF ADVERTISING) BUN 47(H) 7 - 26 mg/dL 01/04/2020 4:50 PM [facility] Creatinine 2.1(H) 0.6 - 1.2 mg/dL 01/04/2020 4:50 PM [facility] Sodium 141 136 - 145 mmol/L 01/04/2020 4:50 PM [facility] Potassium 3.6 3.5 - 4.5 mmol/L 01/04/2020 4:50 PM [facility] Chloride 102 98 - 107 mmol/L 01/04/2020 4:50 PM [facility] CO2 27 22 - 29 mmol/L 01/04/2020 4:50 PM [facility] Glucose 98 70 - 115 mg/dL 01/04/2020 4:50 PM [facility] Calcium 9.3 8.4 - 10.2 mg/dL 01/04/2020 4:50 PM [facility] Anion Gap 16 8 - 18 01/04/2020 4:50 PM [facility] BUN/Creatinine Ratio 22 7 - 23 01/04/2020 4:50 PM [facility] Osmolality Calculated 304(H) 270 - 300 mOsm/kg 01/04/2020 4:50 PM [facility] eGFR 23(L) >60 mL/min/1.7 3 m2 01/04/2020 4:50 PM [facility] Blood BLOOD SPECIMEN / Unknown Lab Venipuncture / Unknown 01/04/2020 3:15 PM HEAD OF ADVERTISING 01/04/2020 3:56 PM HEAD OF ADVERTISING Diana Mao MD LAB - CHEMISTRY PATRICIA CASIANO [facility] [address] [place] [address] documented in this encounter Visit Diagnoses Diagnosis CKD (chronic kidney disease) stage 4, GFR 15-29 ml/min (HCC) Chronic kidney disease, Stage IV (severe) Essential hypertension documented in this encounter Care Teams Sales Agent Financial Report Service Relationship Specialty Start Date End Date Diana Mao MD [address] [place] [address] PCP - General 08/05/17 06/14/23 documented as of this encounter
--- OUTSIDE RECORDS SUMMARY | 2024-10-15 16:34 | XMS_ITS | Encounter Summary ---
Author Organization [facility] Address [address] [place] [address] Care Team Providers Care Plug Cutter Name Role Phone Diana Mao MD Primary Care Provider [phone] Reason for Visit * Reason Onset Date Comments MEDICATION REFILL 09/05/2019 Encounter Details Date Type Department Care Team (Late st Contact Info) Description 09/05/2019 [address] [facility] [address] [place] [address] Diana Mao MD [address] [address] MEDICATION REFILL Social History Tobacco Use Types [...] encounter Miscellaneous Notes * Telephone Encounter - Lupe Wilson LPN - 09/05/2019 10:43 AM STERILE SUPERVISOR Refill Request Kirsty Rea JUNG: 04.06.19 NOV scheduled: 10.08.19 LRF: 02.19.19 Qty Disp: 90 # of refills: 3 Allergies: Allergies Allergen Reactions ??? Ramipril Other Other reaction(s): Other (See Comments) Kidney Damage Kidney Damage Pended Medication Order: Requested Prescriptions Pending Prescriptions Disp Refills ??? potassium chloride (KLOR-CON) 20 MEQ packet 100 Each 4 Sig: Take 1 packet by mouth once daily ILE SUPERVISOR documented in this encounter Plan of Treatment Upcoming Encounters Date Type Department Care Team (Late st Contact Info) Description 12/11/2024 10:30 AM STERILE SUPERVISOR Appointment [facility] Vascular Services [address] [facility] [address] [place] [address] Jarett Reinoso MD [address] [place], [place] [phone] Christine Benitez MD [address] [place] [phone] Keyshawn Krueger MD [address] [place], [place] [phone] Armando Ferro, [address] [address] documented as of this encounter Visit Diagnoses Not on filedocumented in this encounter Care Teams Plug Cutter Relationship Specialty Start Date End Date Diana Mao MD [address] [place] [address] PCP - General 08/05/17 06/14/23 documented as of this encounter
--- OUTSIDE RECORDS SUMMARY | 2024-10-15 16:34 | XMS_ITS | Encounter Summary ---
Author Organization [facility] Address [address] [address] Care Team Providers Care Propulsion Engineer Name Role Phone Diana Mao MD Primary Care Provider [phone] Reason for Referral * Other (Routine) - Closed Specialty Diagnoses / Procedures Referred By Abena t Referred To Contact Diagnoses Family circumstance Diana Mao MD [address] [place] [address] Reji Murillo LMSW [address] [place] [address] Referral ID Status Reason Start Date Expiration Date V isits Requested Visits Authorized [id number] Closed Specialty Services Required 05/06/2018 11/02/2018 1 1 Reason for Visit * Reason Comments Annual Follow-Up Encounter Details Date Type Department Care Team (Late st Contact Info) Description 05/05/2018 1:40 PM CDT Office Visit [facility] [address] [place] [address] Diana Mao MD [address] [place] [address] Stage 2 chronic kidney disease (Primary Dx); Essential (primary) hypertension; Family circumstance Social History Tobacco Use Types Packs/Day Years [...] Sign Reading Time Taken Comments Blood Pressure 132/70 05/05/2018 1:19 PM CDT Pulse 77 05/05/2018 1:19 PM CDT Temperature 36.2 ??C (97.1 ??F) 05/05/2018 1:19 PM CD T Respiratory Rate - - Oxygen Saturation 96% 05/05/2018 1:19 PM CDT Inhaled Oxygen Concentration - - Weight 82.6 kg (182 lb 1.6 oz) 05/05/2018 1:19 P M CDT Height 170.2 cm (5' 7 ) 05/05/2018 1:19 PM CDT Body Mass Index 28.52 05/05/2018 1:19 PM CDT documented in this encounter Progress Notes * Diana Mao MD - 05/05/2018 2:25 PM CDT Attending Note: Patient seen and examined with Medical Student. I confirm the history, physical findings, assessment, and plan as documented. My additions and/or exceptions are noted below: Subjective: Patient for routine follow up, initially presented with axiety about memory with normaltesting. No noew medical issues but she has numerous stressors in her family life. Her 48 y/o son has had problems with alcohol, was , presently living in her basement, unemployed has lost several low wage jobs. He is sober but no attending AA. [facility]. She has a strained relationship with her ob-wzysxzow-ra-law, but has her granddaughters 13 and 17 almost daily. This past week her (adopted) daughter was diagnosed with what sounds like an early breat cancer. Objective: tearful throughout visit. BP 132/70 Pulse 77 Temp 97.1 ??F (36.2 ??C) (Oral) Ht 1.702 m (5' 7 ) Wt 82.6 kg (182 lb 1.6 oz) SpO2 96% BMI 28.52 kg/m2 Otherwise well-appearing and no functional limitations, CTA RRR No tremor or weakness Assessment & Plan: Current Outpatient Prescriptions Medication ??? aspirin (ASPIRIN) 81 MG tablet ??? vitamin D3-cholecalciferol (CHOLECACIFEROL) 1000 UNITS tablet ??? NIFEdipine CR osmotic 24hr (PROCARDIA-XL) 90 MG tablet ??? labetalol (NORMODYNE; TRANDATE) 200 MG tablet ??? hydroCHLOROthiazide (MICROZIDE) 12.5 MG capsule No current facility-administered medications for this visit. Does not want to take an antidepressant. Is open to referral for CBT SW consulted for social studies teacher referral for the son. Reassurance given about daughter's prognosis * Vanessa Collado - 05/05/2018 1:22 PM CDT Patient Name: Kirsty Rea Date: May 05, 2018 Weight: Wt Readings from Last 2 Encounters: 05/05/18 182 lb 1.6 oz (82.6 kg) 02/06/18 186 lb 1.6 oz (84.4 kg) Patient Vitals for the past 48 hrs: Temp Pulse BP 05/05/18 1319 97.1 ??F (36.2 ??C) 77 132/70 Complaint: Check-up (I)History of Present Illness/Interval History: Ms. Rea is a 77yo female with a PMH of CKD stage 2 and HTN here for follow up. Cramps in legs, which patient reports she has had before when she was given a diuretic. Had to eat lots of bananas and take supplement for K. Recently, she has had cramps in her legs approx once/month, usually at night. When these occur, patient reports she normally puts a shoe on or stands to straighten out her cramped under toes; she reports this normally helps the cramp. She also reports she started eating more bananas and is not sure if that has helped or not. Last cramp was within the lastweek. Additionally patient is concerned because she needs annual refills on three of her medications: HCTZ 12.5mg Nifedipine xl 90mg qd Labetalol 200mg BID Patient reports she needs the prescription good for year but dispensed in 90 day intervals. Patientreports she uses [facility] mail-order pharmacy. Patient is additionally concerned about following up on recently drawn labs; she had a urine done last week. Patient is additionally concerned because within the last 1.5 months, her eyes and the skin around her eyes became itchy. She has dry eyes at baseline and thinks she has some allergies irritating herdry eyes. Patient has tried putting OTC eye drops; which helped. Last year when this happened, she used a cream, which helped; she has not used this cream this year. No vision changes, fevers, congestion. Patient began speaking about her stressful home situation and became tearful. She reports increasedanxiety since her son moved in with her in December of 2016 and her daughter recently found out she has a breast lump with needs for biopsy. She reports she argues with her son all the time. She reports sleep changes, changes in appetite, feels she has slowed down a bit, and feelings of depressed mood. She denies anhedonia, feelings of guilt, problems concentrating, and SI. She has not talked to anyone else about this. She says her son has alcoholism and is doing well, but the stress of living with him is getting to be a lot. Patient describes a history of scleroderma, which she says she has had since she was 14years old.Her only symptoms are asymmetric limbs (left is smaller than right). This does not impair her functionality. She says she is on no therapies for this and sees a porcelain enamel installer once/year. Urinary incontinence Assessment: Absence of urinary incontinence Fall Assessment: No falls (II) Current Medications: Current Outpatient Prescriptions: ??? hydroCHLOROthiazide (MICROZIDE) 12.5 MG capsule, Take 1 capsule by mouth once daily Reasons: High Blood Pressure Disorder, Disp: 30 capsule, Rfl: 3 ??? labetalol (NORMODYNE; TRANDATE) 200 MG tablet, Take 200 mg by mouth once daily, Disp: , Rfl: ??? NIFEdipine CR osmotic 24hr (PROCARDIA-XL) 90 MG tablet, Take 90 mg by mouth once daily, Disp: ,Rfl: ??? vitamin D3-cholecalciferol (CHOLECACIFEROL) 1000 UNITS tablet, Take by mouth DAILY., Disp: , Rfl: ??? aspirin (ASPIRIN) 81 MG tablet, Take 81 mg by mouth DAILY., Disp: 100 tablet, Rfl: (III) Past/Interval Medical, Family, Social History(Document L3=0; L4=1; L5=2 or more areas): Change: no change since last clinic visit ETOH: rarely Tobacco: none Social History Social History ??? [...] History Narrative (IV) Review of Systems: General: WNL Eyes: see HPI ENT: WNL Cardiovascular: WNL Pulmonary: WNL Breasts: WNL Gastrointestinal: WNL Genitourinary: WNL Musculoskeletal: WNL Skin: See HPI Neurological: WNL Psychiatry: See HPI Endocrinology: WNL Hematological: WNL Sleep: See HPI All other systems normal Test Results reviewed and discussed with pt: U/A: no bands. (V) Physical Examination: General: tearful for parts of exam, NAD, cooperative HEENT: pharynx clear Neck: NAD Lungs: CTA Heart: RRR Breasts: Normal Abdomen: soft, non-tender, BS normal Genitals/Rectal: N/A Neurological: Alert/Oriented: x 3, CN II-XII intact, no tremors Musculoskeletal: Gait: ambulatory, w/o assistance, 5/5 strength in all four extremities, left-sidedextremities grossly smaller than right-sided extremities (patient attributes to h/o scleroderma, nochanges) Extremities: edema: location right lower extremity, grade 1+ pitting to lower calf (patient describes as baseline) 10 Gram Monofilament, Planter Surfaces: N/A Skin: normal Pressure ulcers: No () Assessment and Plan: Ms. Rea is a 77yo female with a PMH of CKD stage 2 and HTN who presents for follow up, with concerns about anxiety and leg cramps. Anxiety Regarding issues with family dynamics and health stressors. Plan: Discussed pharmacotherapy; patient does not desire at this point. Patient was provided with resources for living situation with son by Reji ABREU. Leg cramps Nighttime leg cramps, approx 1/month. Plan: Reviewed medications; on low dose of HCTZ. Re-evaluate at next clinic visit. Essential HTN BP today 132/70. On HCTZ 12.5mg, Nifedipine xl 90mg qd, Labetalol 200mg BID. Denies SOB, changed edema, vision changes, and headaches. Plan: Cont HCTZ, Nifedipine, and Labetalol. CKD stage 2 Plan: Cont lisinopril, as above. Vanessa Collado 05/05/2018 2:05 PM documented in this encounter Plan of Treatment Upcoming Encounters Date Type Department Care Team (Late st Contact Info) Description 12/11/2024 10:30 AM PRINTING MACHINE OPERATOR TAPE RULES Appointment [facility] Vascular Services [address] [facility] [address] [place] [address] Jarett Reinoso MD [address] [place], [place] [phone] Christine Benitez MD [address] [place] [address] Keyshawn Krueger MD [address] [place] [address] Armando Ferro, [address] [phone] Scheduled Referrals Name Type Priority Associated Diagnoses Orde r Schedule AMB REFERRAL TO SOCIAL WORK Outpatient Referral Routine Family circumstance Expected: 05/06/2018, Expires: 05/06/2019 documented as of this encounter Visit Diagnoses Diagnosis Stage 2 chronic kidney disease- Primary Essential (primary) hypertension Unspecified essential hypertension Family circumstance Unspecified family circumstance documented in this encounter Care Teams Propulsion Engineer Relationship Specialty Start Date End Date Diana Mao MD [address] [place] [address] PCP - General 08/05/17 06/14/23 documented as of this encounter
--- OUTSIDE RECORDS SUMMARY | 2024-10-15 16:34 | XMS_ITS | Encounter Summary ---
Author Organization [facility] Address [address] [place] [address] Care Team Providers Care Tank Pumper Name Role Phone Diana Mao MD Primary Care Provider [phone] Encounter Details Date Type Department Care Team (Late Contact Info) Description 02/06/2018 [facility] [address] [place] [address] Diana Mao MD [address] [place] [address] Stage 2 chronic kidney disease Social History [...] (Late Contact Info) Description 12/11/2024 10:30 AM VERTICAL PUNCH OPERATOR Appointment [facility] Vascular Services [address] [facility] [address] [place] [address] Jarett Reinoso MD [address] [place] [address] Christine Benitez MD [address] [place] [phone] Keyshawn Krueger MD [address] [place], [place] [phone] Armando Ferro, [address] [phone] documented as of this encounter Visit Diagnoses Diagnosis Stage 2 chronic kidney disease documented in this encounter Care Teams Tank Pumper Relationship Specialty Start Date End Date Diana Mao MD [address] [place] [address] PCP - General 08/05/17 06/14/23 documented as of this encounter
--- OUTSIDE RECORDS SUMMARY | 2024-10-15 16:34 | XMS_ITS | Encounter Summary ---
Author Organization [facility] Address [address] [facility] [place] [address] Care Team Providers Care Territory Account Representative Name Role Phone Diana Mao MD Primary Care Provider [phone] Reason for Visit * Reason Comments Injury Leg left Encounter Details Date Type Department Care Team (Late st Contact Info) Description 07/30/2020 10:30 AM CDT Office Visit [address], [place] [phone] Tariq Antoine, STAFF NURSE ICU RESOURCE TEAM-SHEET METAL CONTRACTOR [address] [place] [phone] Acute pain of left knee (Primary Dx) Social History Tobacco Use Types [...] AM CDT documented as of this encounter Last Filed Vital Signs Vital Sign Reading Time Taken Comments Blood Pressure 140/66 07/30/2020 11:07 AM CDT Pulse 74 07/30/2020 11:07 AM CDT Temperature 36.8 ??C (98.3 ??F) 07/30/2020 10:59 AM C DT Respiratory Rate - - Oxygen Saturation 97% 07/30/2020 10:59 AM CDT Inhaled Oxygen Concentration - - Weight 82.3 kg (181 lb 6.4 oz) 07/30/2020 10:59 AM CDT Height 170.8 cm (5' 7.25 ) 07/30/2020 10:59 AM C DT Body Mass Index 28.2 07/30/2020 10:59 AM CDT documented in this encounter Patient Instructions * Patient Instructions* Ginna Fontenot - 07/30/2020 11:07 AM CDT How to Contact Geriatric Medicine Between Office Visits To make, change or cancel an appointment: Please call us at [phone] and select option 1 or you cansend a Freever message. To request refills, please contact your pharmacy who will reach out to us. If you have changes to your refill prescription, you will need to contact us directly at [phone] and select option 2 orsend your doctor a Freever message. We request that all prescription refills be requested during regular office phone hours. If your prescription requires a prior authorization, it may take several days for us to get approval from yourLoopport company before we can refill your prescription. Please do not wait until you are completely out before contacting us to prevent any interruption in your medication. Normal business hours are from 8:00 am to 4:30 pm Tuesday through Tuesday. Our fax number is [phone]. If you have been seen anyplace outside of [facility], please have your records and [...] day are given to the Geriatric physician sanitation worker hosing machinery. Please call [phone] and identify yourself as a patient in our practice needing to speak to Geriatric Medicine. The hydro electric station operator will contact the physician sanitation worker hosing machinery. You can generally expect a return call within 30 minutes. On weekends, physicians are seeing hospitalized patients and there may be a longer wait. Test and laboratory results: Our practice typically reports lab and test results through letters orMyChart, the [facility] online patient portal. Please allow 5 days from when your tests are completed to receive the results. If you did not complete your labs on the [facility] campus or at a commercial lab ([facility]) then wemay not have received the results. Please contact the lab and request that they are faxed to us ([phone]). Visit our website at [email or web address] for additional information about [facility] and an interactive health encyclopedia. For information related to COVID-19, please visit the cdc website at www.cdc.gov. [facility]'s missed appointment policy is: - Patients with 3 consecutively missed appointments OR 3 missed appointments in a 12 month period may be asked to seek consultation outside of [facility]. - A missed appointment is defined as: ?? Arriving to a scheduled appointment too late to be seen (Patients who arrive to clinic later than their scheduled appointment time may not be seen) ?? Not showing up for an appointment ?? An appointment cancelled less than 24 hours in advance WE MOVED ! ALL your [facility] doctors will see you in a new location: [facility] Medicine 2nd Floor [address] [place] [address] documented in this encounter Progress Notes * Tariq Antoine, STAFF NURSE ICU RESOURCE TEAM-SHEET METAL CONTRACTOR - 07/30/2020 11:14 AM CDT Patient Name: Kirsty Rea Date: July 30, 2020 Weight: Wt Readings from Last 2 Encounters: 07/30/20 181 lb 6.4 oz (82.3 kg) 01/04/20 177 lb (80.3 kg) Patient Vitals for the past 48 hrs: Temp Pulse BP 07/30/20 1107 -- 74 140/66 07/30/20 1059 98.3 ??F (36.8 ??C) 67 128/64 Complaint: Pt complains of L medial knee pain. Pain started on Tuesday about 4 weeks ago. Pt self medicating with ibuprofen 2x a day which makes the pain tolerable. Rest also helps. However, patientcannot walk for any length of time without without severe pain. Pt can ambulate and has good ROM. Pt adamant it is not arthritic in nature. Usually walks 3-4x/week. Pain dull, achy, uncomfortable when not in use. L leg is naturally smaller in size than R. Limp noticeable. Pt has no other issues L knee pain Urinary incontinence Assessment: Absence of urinary incontinence [...] mg by mouth, Disp: , Rfl: ??? potassium chloride (KLOR-CON) 20 MEQ packet, Take 1 packet by mouth once daily (Patient not taking: Reported on 07/30/2020), Disp: 100 Each, Rfl: 4 ??? tacrolimus (PROTOPIC) 0.1 % ointment, Apply to affected area every 12 hours, Disp: , Rfl: ??? vitamin D3-cholecalciferol (CHOLECACIFEROL) [...] Last attempt to quit: 10/31/1983 Years since quittin.7 ??? Smokeless tobacco: Never Used Substance and [...] file Gets together: Not on file Attends christian service: Not on file Active member of [...] Social History Narrative ??? Not on file ROS: General: Denies ALDANA/chills Eyes: No vision changes/drainage ENT: WNL Cardiovascular: WNL Pulmonary: Denies SOB/wheeze Breasts: Denies issues Gastrointestinal: WNL Genitourinary: WNL Musculoskeletal: L medial knee pain. R leg larger than L Skin: WNL Neurological: WNL Psychiatry: WNL All other systems normal Physical Exam: BP 140/66 (BP SITE: LEFT ARM, BP POSITION: STANDING, BP CUFF SIZE: 11) Pulse 74 Temp 98.3 ??F (36.8??C) (Oral) Ht 5' 7.25 (1.708 m) Wt 181 lb 6.4 oz (82.3 kg) SpO2 97% BMI 28.2 kg/m2 General: WDWN HEENT: cataracts, teeth NAD Neck: NAD, no JVD Lungs: CTA Heart: RRR, murmur no Breasts: not done Abdomen: soft, non-tender, BS normal Genitals/Rectal: not done Neurological: Alert/Oriented: x 3, tremors absent, CN II-XII intact Musculoskeletal: Gait: Noticeable limp, no tenderness Extremities: no CCE Skin: normal Pressure ulcers: No Assessment and Plan: Acute pain of left knee - Plan: XR KNEE LEFT 3VW, AMB Ref Orthopedics - [facility] Prevention due for dental, colonoscopy at age 66, Mammogram 2 years ago, immunizations up to date except will get dTap Follow up as needed with PCP documented in this encounter Plan of Treatment Upcoming Encounters Date Type Department Care Team (Late st Contact Info) Description 12/11/2024 10:30 AM TICK INSPECTOR Appointment [facility] Vascular Services [address] [facility] [address] [place] [address] Jarett Reinoso MD [address] [place], [place] [phone] Christine Benitez MD [address] [place] [address] Keyshawn Krueger MD [address] [place], [place] [address] [place] [address] [phone] documented as of this encounter Results * XR KNEE LEFT [...] SILVA on 07/30/2020 2:03PM . Tariq Antoine STAFF NURSE ICU RESOURCE TEAM-SHEET METAL CONTRACTOR DIAGNOSTIC IMAGING ORDERABLES documented in this encounter Visit Diagnoses Diagnosis Acute pain of left knee- Primary Acute pain of left knee documented in this encounter Care Teams Territory Account Representative Relationship Specialty Start Date End Date Diana Mao MD [address] [place] [address] PCP - General 08/05/17 06/14/23 documented as of this encounter
--- OUTSIDE RECORDS SUMMARY | 2024-10-15 16:34 | XMS_ITS | Encounter Summary ---
Author Organization [facility] Address [address] [facility] [place] [address] Care Team Providers Care Benzene Washer Name Role Phone Diana Mao MD Primary Care Provider [phone] Reason for Visit * Reason Onset Date Comments MEDICATION REFILL 04/21/2018 Encounter Details Date Type Department Care Team (Late Contact Info) Description 04/21/2018 Refill [facility] [address] [place] [address] Diana Mao MD [address] [place] [address] MEDICATION REFILL Social History Tobacco Use Types [...] encounter Miscellaneous Notes * Telephone Encounter - Steph Davila - 04/21/2018 9:09 AM CDT JUNG [id number] documented in this encounter Plan of Treatment Upcoming Encounters Date Type Department Care Team (Late Contact Info) Description 12/11/2024 10:30 AM CLINICAL AIDE Appointment [facility] Vascular Services [address] [facility], [address] [place] [address] Jarett Reinoso MD [address] [place], [place] [address] Christine Benitez MD [address] [place] [address] Keyshawn Krueger MD [address] [place] [address] [place] [address] [phone] documented as of this encounter Visit Diagnoses Diagnosis Essential (primary) hypertension Unspecified essential hypertension documented in this encounter Care Teams Benzene Washer Relationship Specialty Start Date End Date Diana Mao MD [address] [place] [address] PCP - General 08/05/17 06/14/23 documented as of this encounter
--- OUTSIDE RECORDS SUMMARY | 2024-10-15 16:34 | XMS_ITS | Encounter Summary ---
Author Organization [facility] Address [address] [facility] [place] [address] Care Team Providers Care Wafer Production Lead Worker Name Role Phone Diana Mao MD Primary Care Provider [phone] Reason for Visit * Reason Onset Date Comments Question 06/24/2020 Covid testing Encounter Details Date Type Department Care Team (Late st Contact Info) Description 06/24/2020 Telephone [facility] [address] [place] [address] Diana Mao MD [address] [address] Question (Covid testing) Social History Tobacco Use Types Packs/Day Years [...] Telephone Encounter - Marie Bennett LPN - 06/24/2020 10:11 AM CDT Ms. Rea called and she woke up this am vomiting, she has no other s/s, she feels like she is getting a headache. She feels like she should get Covid testing. Pt's grandson tested positive after she was around him 2-3 weeks ago. Can you please advise if the pt needs to be tested or what she needsto do? She can be reached at [phone]. documented in this encounter Plan of Treatment Upcoming Encounters Date Type Department Care Team (Late st Contact Info) Description 12/11/2024 10:30 AM BUTTON STATION WORKER Appointment [facility] Vascular Services [address] [facility] [address] [place], [place] [phone] Jarett Reinoso MD [address] [place], [place] [address] Christine Benitez MD [address] [place] [address] Keyshawn Krueger MD [address] [place] [address] Armando Ferro, [address] [address] documented as of this encounter Visit Diagnoses Not on filedocumented in this encounter Care Teams Wafer Production Lead Worker Relationship Specialty Start Date End Date Diana Mao MD [address] [place] [address] PCP - General 08/05/17 06/14/23 documented as of this encounter
--- OUTSIDE RECORDS SUMMARY | 2024-10-15 16:34 | XMS_ITS | Encounter Summary ---
Author Organization [facility] Address [address] [facility] [place] [address] Care Team Providers Care Power Line Installer And Repairer Name Role Phone Diana Mao MD Primary Care Provider [phone] Reason for Visit * Reason Onset Date Comments MEDICATION REFILL 07/20/2018 Encounter Details Date Type Department Care Team ([facility] Contact Info) Description 07/20/2018 Refill [facility] [address] [place] [address] Diana Mao MD [address] [place] [address] MEDICATION REFILL Social History Tobacco Use Types [...] * Telephone Encounter - Steph Davila - 07/20/2018 1:51 PM CDT Pt is trying to get a 90 day of hydrochlorothiazide 12.5MG documented in this encounter Plan of Treatment Upcoming Encounters Date Type Department Care Team (Late Contact Info) Description 12/11/2024 10:30 AM LINER INSTALLER Appointment [facility] Vascular Services [address] [facility] [place] [address] [place] [address] Jarett Reinoso MD [address] [place], [place] [phone] Christine Benitez MD [address] [place] [address] Keyshawn Krueger MD [address] [place], [place] [phone] [place] [address] [phone] documented as of this encounter Visit Diagnoses Diagnosis Essential (primary) hypertension Unspecified essential hypertension documented in this encounter Care Teams Power Line Installer And Repairer Relationship Specialty Start Date End Date Diana Mao MD [address] [place] [address] PCP - General 08/05/17 06/14/23 documented as of this encounter
--- OUTSIDE RECORDS SUMMARY | 2024-10-15 16:34 | XMS_ITS | Encounter Summary ---
Author Organization [facility] Address [address] [facility] [place] [address] Care Team Providers Care Power Lineworker Name Role Phone Diana Mao MD Primary Care Provider Reason for Visit * Reason Comments Incontinence Encounter Details Date Type Department Care Team (Late st Contact Info) Description 11/13/2021 4:00 PM AMMUNITION OFFICER Office Visit [facility] Obstetrics Gynecology and Women's Health [address] [place] [address] Santiago Mar Che, MD [address] [place] [address] Urge incontinence (Primary Dx) Social History Tobacco Use Types [...] Patient Instructions* Santiago Mar Che, MD - 11/13/2021 3:34 PM AMMUNITION OFFICER I am starting you on ditropan (oxybutynin) 5 mg to be taken just once a day. I am hoping it helps you with urinary control as well as fecal control. If you get too much constipation, tell me. See me in 6 weeks. Call if any problems or concerns at . You can also ask the conche operator to send me a message, and I or the nurses in Urogynecology Triage will respond when we can. You will note that your clinical notes from your visits will be available for visits after 2019 (Sorry, earlier ones are not released by [facility] or [facility]). If you see any errors, please [...] to reflect how you take them exactly. NITION OFFICER documented in this encounter Progress Notes * Santiago Mar Che, MD - 11/13/2021 4:00 PM CST Ms. Kirsty Rea is a 80 year old female who has returned for a follow up visit. She is being seen for urinary frequency. She has had issues with diarrhea. She had described insensible loss of urine to Dr. Mao. She was a poor historian, but said that her loss of loose stools bothered her the most. She also had urinary frequency. I had advised her to begin a symptom diary and start on a low FODMAP diet. She asked about moles and I advised a dermatology evaluation. She was treated with macrobid for a cath culture showing corynebacterium. She has an appointment with dermatology. She complains of a facial rash. She continues to have issues with her bowels. She has not stayed on the low FODMAP diet. She did not feel it made a difference. She says that shecannot tell if any foods made her better or worse. She says that now does not know when she leaks . She says she does not have any urge to void. She say that this has been a problem for years. Impression: She has overactive bladder symptoms along with loss of loose stools. There was no difference using a low FODMAP diet, but she only used it for a little bit, and said she went back to holiday foods over the holidays. She has many issues that she brought up again, including her frozen shoulder, facial rash, moles. She did use the macrobid, and there was no change in symptoms. Plan: I started her on ditropan (oxybutynin) 5 mg in the morning with hopes of helping both overactive bladder and her loose stools. To see me in 6 weeks. The patients medications, allergies, medical history, surgical history, family history, and social history were reviewed and changes are amended directly in the appropriate areas of the electronic medical record and electronically signed. Time - The total face to face encounter time was 15 minutes during today's visit which includes a medically appropriate exam or evaluation, and counseling and educating the patient or family/caregiver. Additionally, I also spent time on the day of the visit preparing to see the patient and completingthe visit documentation, including - ? Preparing to see the patient (review of previous tests, records available, etc) Time: 5 min ? Ordering medications, tests, or procedures as needed Time: 5 min ? Referring and/or communicating with other health managed care director Time: 5 min ? Documenting clinical information in the electronic health record Time: 5 min ? Care coordination as needed Time: 0 min Total time spent for encounter: 35 minutes 20 min (21011) 30 minutes (12603) 40 minutes (28721) NITION OFFICER documented in this encounter Plan of Treatment Upcoming Encounters Date Type Department Care Team (Late st Contact Info) Description 12/11/2024 10:30 AM AMMUNITION OFFICER Appointment [facility] Vascular Services [address] [place] [address], [address] [address] Jarett Renioso MD [address] [place] [address] Christine Benitez MD [address] [place] [address] Keyshawn Krueger MD [address] [place] [address] Armando Ferro, [address] [address] documented as of this encounter Visit Diagnoses Diagnosis Urge incontinence- Primary documented in this encounter Care Teams Power Lineworker Relationship Specialty Start Date End Date Diana Mao MD [address] [place] [address] PCP - General 08/05/17 06/14/23 documented as of this encounter
--- OUTSIDE RECORDS SUMMARY | 2024-10-15 16:34 | XMS_ITS | Encounter Summary ---
Author Organization [facility] Address [address] [facility] [place] [address] Care Team Providers Care Stencil Typist Name Role Phone Diana Mao MD Primary Care Provider [phone] Reason for Visit * Reason Onset Date Comments Question 09/09/2020 Leg pain Encounter Details Date Type Department Care Team (Late st Contact Info) Description 09/09/2020 Telephone [facility] [address] [facility], [facility] [place] [address] Tariq Antoine, LOADER TECHNICIAN-CO FOUNDER AND CHIEF STRATEGY OFFICER [address] [place] [address] [place] [address] Question (Leg pain) Social History Tobacco Use Types Packs/Day Years [...] Telephone Encounter - Marie Bennett LPN - 09/09/2020 1:37 PM MANAGER PERFORMANCE She needs to tell me more than that she is limping. She needs to make an appointment Or if we can'tsee her I can telehealth her. Based on what I find I will know what to do. Pt called and she states she has been limping for the past 2 months. She spoke with her massage therapist who is telling her that one of her legs is longer than the other and telling her she needs orthopedic lift. She is wanting to speak with you about this matter. Can you please advise? [phone] JUNG: 07.30.2020 RAFAL Potter NOV: None GER PERFORMANCE documented in this encounter Plan of Treatment Upcoming Encounters Date Type Department Care Team (Late st Contact Info) Description 12/11/2024 10:30 AM MANAGER PERFORMANCE Appointment [facility] Vascular Services [address] [facility] [address] [place], [place] [phone] Jarett Reinoso MD [address] [place], [place] [address] Christine Benitez MD [address] [place] [address] Keyshawn Krueger MD [address] [place], [place] [address] [place] [address] [phone] documented as of this encounter Visit Diagnoses Not on filedocumented in this encounter Care Teams Stencil Typist Relationship Specialty Start Date End Date Diana Mao MD [address] [place] [address] PCP - General 08/05/17 06/14/23 documented as of this encounter
--- OUTSIDE RECORDS SUMMARY | 2024-10-15 16:34 | XMS_ITS | Encounter Summary ---
Author Organization [facility] Address [address] [place] [address] Care Team Providers Care Ripsaw Matcher Name Role Phone Diana Mao MD Primary Care Provider [phone] Encounter Details Date Type Department Care Team (Late Contact Info) Description 12/19/2020 Orders Only [facility] - COVID Vaccine [address] [place] [phone] Joseph Marshall MD [address] [place], [place] [phone] Need for vaccination Social History Tobacco Use [...] (Late Contact Info) Description 12/11/2024 10:30 AM GEOSPATIAL TECHNOLOGIST Appointment [facility] Health Vascular Services [address] [facility], [facility] [address] [place] [address] Jarett Reinoso MD [address] [place] [address] Christine Benitez MD [address] [place] [phone] Keyshawn Krueger MD [address] [place], [place] [address] Armando Ferro, [address] [address] documented as of this encounter Visit Diagnoses Diagnosis Need for vaccination Need for prophylactic vaccination and inoculation against unspecified single disease documented in this encounter Care Teams Ripsaw Matcher Relationship Specialty Start Date End Date Diana Mao MD [address] [place] [address] PCP - General 08/05/17 06/14/23 documented as of this encounter
--- OUTSIDE RECORDS SUMMARY | 2024-10-15 16:34 | XMS_ITS | Encounter Summary ---
Author Organization [facility] Address [address] [place] [address] Care Team Providers Care Process Coordinator Name Role Phone Diana Mao MD Primary Care Provider [phone] Reason for Visit * Reason Comments Refill Request Encounter Details Date Type Department Care Team (Late Contact Info) Description 10/05/2018 Refill [facility] Geriatrics [address] [place] [address] Diana Mao MD [address] [place] [address] Refill Request Social History Tobacco Use Types [...] (Late Contact Info) Description 12/11/2024 10:30 AM GEOLOGICAL SPECIALIST Appointment [facility] Health Vascular Services [address] [facility], [address] [place] [address] Jarett Reinoso MD [address] [place] [address] Christine Benitez MD [address] [place] [address] Keyshawn Krueger MD [address] [place], [place] [address] Armando Ferro, [address] [address] documented as of this encounter Visit Diagnoses Not on filedocumented in this encounter Care Teams Process Coordinator Relationship Specialty Start Date End Date Diana Mao MD [address] [place] [address] PCP - General 08/05/17 06/14/23 documented as of this encounter
--- OUTSIDE RECORDS SUMMARY | 2024-10-15 16:34 | XMS_ITS | Encounter Summary ---
Author Organization [facility] Health Address [address] [place] [address] Care Team Providers Care Salesperson Sewing Machines Name Role Phone Diana Mao MD Primary Care Provider [phone] Encounter Details Date Type Department Care Team (Latest Contact Info) Description 06/28/2014 Hospital Outpatient Visit Historic [facility] OUTPATIENT SERVICES [address] [place] [id number] Diana Mao MD [address] [place] [address] Discharge Disposition: Home or Self Care Social [...] st Contact Info) Description 12/11/2024 10:30 AM STRUCTURAL METAL FABRICATOR APPRENTICE Appointment [facility] Health Vascular Services [address] [facility], [facility] [address] [place] [address] Jarett Reinoso MD [address] [place], [place] [id number] Christine Benitez MD [address] [place] [phone] Keyshawn Krueger MD [address] [place] [address] Armando Ferro, [address] [place] [address] documented as of this encounter Procedures Procedure Name Priority Date/Time Associated Diagnosis Comments CT HEAD WO CONTRAST Routine 06/28/2014 1 0:53 AM CDT documented in this encounter Results * CT HEAD WO CONTRAST (06/28/2014 10:53 AM CDT) Anatomical Region Laterality Modality Head Other Impressions 06/28/2014 1:09 PM CDT IMPRESSION: 1. No acute intracranial process. 2. Right internal carotid artery terminus measuring up to 6.7 mm. This may be due to ectasia. However, an aneurysm in this region cannot be excluded. A computed tomography angiogram of the head (CTA) is recommended for further evaluation. A yellow critical result was submitted in synapse for Dr. Diana Mao by Dominique Pacheco on 06/28/2014 at 11:15 AM. This report was approved ??by Dominique Pacheco M.D. ?? on 06/28/2014 11:19 AM . I, Dr. SOILA DENNY M.D. have personally reviewed and interpreted this examination/study. This report was electronically signed by SOILA DENNY M.D. ??on 06/28/2014 1:09 PM . Narrative 06/28/2014 1:09 PM CDT EXAMINATION: Computed tomography (CT) of the head without contrast HISTORY: 73-year-old female with memory loss. TECHNIQUE: CT of the head was performed without contrast according to standard protocol. FINDINGS: No prior study is available for comparison. No acute intra- or extra-axial fluid collections are identified. There is mild cerebral volume loss with associated ex vacuo ventricular dilatation. The basilar cisterns are patent. No mass effect or midline shift is seen. The ng-white matter differentiation is normal. Periventricular white matter hypoattenuation is nonspecific but can be seen as a result of chronic small vessel ischemic disease. ??Bilateral carotid siphon atherosclerotic calcifications are noted. The right internal carotid artery terminus measures up to 6.7 mm. Other than bilateral lens extractions, the visualized portions of the orbits, paranasal sinuses, and mastoids appear normal. No acute fracture is identified. Procedure Note Kentrell Garsia MD - 01/28/2018 EXAMINATION: Computed tomography (CT) of the head without contrast HISTORY: 73-year-old female with memory loss. TECHNIQUE: CT of the head was performed without contrast according tostandard protocol. FINDINGS: No prior study is available for comparison. No acute intra- or extra-axial fluid collections are identified. There ismild cerebral volume loss with associated ex vacuo ventricular dilatation.The basilar cisterns are patent. No mass effect or midline shift is seen.The ng-white matter differentiation is normal. Periventricular white matter hypoattenuation isnonspecific but can be seen as a result of chronic small vessel ischemicdisease. Bilateral carotid siphon atherosclerotic calcifications arenoted. The right internal carotid artery terminus measures up to 6.7 mm. Other than bilateral lensextractions, the visualized portions of the orbits, paranasal sinuses, andmastoids appear normal. No acute fracture is identified. IMPRESSION IMPRESSION: 1. No acute intracranial process. 2. Right internal carotid artery terminus measuring up to 6.7 mm. This maybe due to ectasia. However, an aneurysm in this region cannot be excluded.A computed tomography angiogram of the head (CTA) is recommended forfurther evaluation. A yellow critical result was submitted in synapse for Dr. Diana Pacheco on 06/28/2014 at 11:15 AM. This report was approved by Dominique Pacheco M.D. on 06/28/2014 11:19 AM. I, Dr. SOILA DENNY M.D. have personally reviewed and interpreted thisexamination/study. This report was electronically signed by SOILA DENNY M.D. on 06/28/20141:09 PM . Diana Mao MD CT ORDERABLES documented in this encounter Visit Diagnoses Diagnosis Memory loss documented in this encounter Care Teams Salesperson Sewing Machines Relationship Specialty Start Date End Date Diana Mao MD [address] [place] [address] PCP - General 08/05/17 06/14/23 documented as of this encounter
--- OUTSIDE RECORDS SUMMARY | 2024-10-15 16:34 | XMS_ITS | Encounter Summary ---
Author Organization [facility] Address [address] [place] [place] [address] Care Team Providers Care Stacker Straightener Name Role Phone Diana Mao MD Primary Care Provider [phone] Reason for Visit * Reason Onset Date Comments Order 08/09/2018 Encounter Details Date Type Department Care Team (Late st Contact Info) Description 08/09/2018 Telephone [facility] [address] [place] [address] Diana Mao MD [address] [facility] [address] [place] [address] Order Social History Tobacco Use Types Packs/Day [...] Telephone Encounter - Ree Dozier RN - 08/09/2018 8:23 AM CDT Patient has upcoming office visit for 09/17. Patient would like for new orders for blood work and urinalysis performed prior to this appointment. Please place orders for the Nurse/Staff to fax to [facility] documented in this encounter Plan of Treatment Upcoming Encounters Date Type Department Care Team (Late st Contact Info) Description 12/11/2024 10:30 AM GLORY HOLE TENDER Appointment [facility] Vascular Services [address] [facility], [address] [place] [address] Jarett Reinoso MD [address] [place] [address] Christine Benitez MD [address] [place] [address] Keyshawn Krueger MD [address] [place] [address] Armando Ferro, [address] [address] documented as of this encounter Visit Diagnoses Not on filedocumented in this encounter Care Teams Stacker Straightener Relationship Specialty Start Date End Date Diana Mao MD [address] [place] [address] PCP - General 08/05/17 06/14/23 documented as of this encounter
--- OUTSIDE RECORDS SUMMARY | 2024-10-15 16:35 | XMS_ITS | Encounter Summary ---
Author Organization [facility] Address [address] [place] [address] Phone Care Team Providers Care Surface Water Technician Name Role Phone Diana Mao MD Primary Care Provider [phone] Encounter Details Date Type Department Care Team (Late st Contact Info) Description 01/12/2021 Telephone [facility] Otolaryngology [facility] Building [address] [address] Tish Dutta Au.D. [address] [address] Social History Tobacco Use Types Packs/Day Years Used Date Smoking Tobacco: Former Smokeless Tobacco: Never Alcohol Use Standard Drinks/Week Comments Yes 0 (1 standard drink = 0.6 oz pur e alcohol) Comments Unknown Sex and Gender Information Value Date Recorded Sex Assigned at Not on file Legal Sex Female 3:00 AM KNOWLEDGE ENGINEER Gender Identity Not on file Sexual Orientation Not on file documented as of this encounter Miscellaneous Notes * Telephone Encounter - Tish Dutta Au.D. - 01/12/2021 2:11 PM CDT Patient lost one of her aids on Tuesday. The aids were never paired to the lea and patient is unable to use Find My Hearing aids. Aids are under warranty. Patient encouraged to look for aid for a few more days and then call if wants to use L/D coverage for replacement. documented in this encounter Plan of Treatment Not on file documented as of this encounter Visit Diagnoses Not on filedocumented in this encounter Care Teams Surface Water Technician Relationship Specialty Start Date End Date Diana Mao MD [address] [place] [address] PCP - General Geriatric Medicine 03/25/20 11/11/21 documented as of this encounter
--- OUTSIDE RECORDS SUMMARY | 2024-10-15 16:35 | XMS_ITS | Encounter Summary ---
Author Organization [facility] Address [address] [place] [address] Phone Care Team Providers Care Second Hand Paper Machine Name Role Phone Diana Mao MD Primary Care Provider Encounter Details Date Type Department Care Team (Latest Contact Info) Description 02/03/2021 4:00 PM CDT Procedure visit [facility] Otolaryngology [address] [facility] Building [address] [address] Tish Dutta Au.D. 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 - 02/03/2021 4:00 PM CDT Procedures Patient fit with replacement left aid. Aid was paired to right aid and to lea. Patient will follow up as scheduled documented in this encounter Plan of Treatment Not on file documented as of this encounter Visit Diagnoses Diagnosis Sensorineural hearing loss (SNHL) of both ears- Primary documented in this encounter Care Teams Second Hand Paper Machine Relationship Specialty Start Date End Date Diana Mao MD [address] [place] [address] PCP - General Geriatric Medicine 03/25/20 11/11/21 documented as of this encounter
--- OUTSIDE RECORDS SUMMARY | 2024-10-15 16:35 | XMS_ITS | Encounter Summary ---
Author Organization [facility] Address [address] [place] [address] Phone Care Team Providers Care Fireworks Inspector Name Role Phone Diana Mao MD Primary Care Provider Reason for Visit * Consultation (Routine) - Closed Specialty Diagnoses / Procedures Referred By Contac t Referred To Contact Audiology Diagnoses Sensorineural hearing loss (SNHL) of both ears Diana Mao MD [address] [place] [address] Phone: tel: fax: [facility] (All Locations) Referral ID Status Reason Start Date Expiration Date V isits Requested Visits Authorized [id number] Closed Specialty Services Required 11/13/2021 10/30/2022 99 [phone] Encounter Details Date Type Department Care Team (Latest Contact Info) Description 12/25/2021 1:30 PM CERTIFIED REHABILITATION COUNSELOR Procedure visit [facility] Otolaryngology [address] [facility] Medical Office Building [address] [address] Tish Dutta Au.D. [facility] [place] [address] Sensorineural hearing loss (SNHL) of both ears Social History Tobacco Use Types Packs/Day Years Used Date Smoking Tobacco: Former Smokeless Tobacco: Never Alcohol Use Standard Drinks/Week Comments Yes 0 (1 standard drink = 0.6 oz pur e alcohol) Comments Unknown Sex and Gender Information Value Date Recorded Sex Assigned at Not on file Legal Sex Female 3:00 AM CERTIFIED REHABILITATION COUNSELOR Gender Identity Not on file Sexual Orientation Not on file documented as of this encounter Procedure Notes * Tish Dutta Au.D. - 12/25/2021 1:30 PM CST Procedures Kirsty Rea [id number] 12/25/21 Diana Mao MD PATIENT REPORTS: Long standing history of asymmetric hearing loss. History of left stapes surgery. Last test completed 05/14/2020 Patient uses amplification bilaterally. Otoscopic examination revealed: EACs and tympanic membranes visualized bilaterally. TESTS PERFORMED: See: audiogram ASSESSMENT: Pure tone audiometry was performed and revealed: Right - Mild gradually sloping to moderately severe sensorineural hearing loss 250 - 6,000 Hz, sloping to severe Left - moderately severe mixed hearing loss 250 - 3,000 Hz, sloping to severe from 4,000 - 8,000 Hz Speech recognition thresholds test was performed and revealed: Right - mild loss Left - moderate loss Word recognition testing was performed at an elevated, yet intelligible level with an abbreviated protocol using the recorded Auditec version of NU-6 (male speaker) presented in order of difficulty: Right - slight difficulty 50 words presented 38/50 76% Left - moderate difficulty 50 words presented 37/50 74% Thresholds and word recognition scores remain essentially unchanged from previous hearing examination. HEARING AID ASSESSMENT: Patient reports no specific concerns regarding hearing aids at this time Aid(s) cleaned and checked. Earmold(s) sanitized Listening check revealed: Aid(s) clear and no evidence of distortion or intermittent performance. VC and Program buttons functioning properly Electroacoustic analysis was performed and revealed: Ring Attacher Settings OSPL90 MTG EIN Right [place]-1 User 95.8 22.7 32.7 Left ALDANA-1 User 109.3 28.5 30.3 Hearing aid programming changes: recalculated fit with latest thresholds PLAN/RECOMMENDATIONS: ENT follow-up Retest 12 months/ PRN Hearing assistive technology (HAT) Continue use of amplification Hearing aid check in 6 months and before warranty expires on 08/30/2022 IFIED REHABILITATION COUNSELOR documented in this encounter Plan of Treatment Not on file documented as of this encounter Procedures Procedure Name Priority Date/Time Associated Diagnosis Comments AUDBASE RESULTS 12/25/2021 1:33 PM CERTIFIED REHABILITATION COUNSELOR documented in this encounter Results * AUDBASE RESULTS (12/25/2021 1:33 PM CERTIFIED REHABILITATION COUNSELOR) Provider Scanning AUDIOLOGY SERVICES ORDERABLES Final Result documented in this encounter Visit Diagnoses Diagnosis Sensorineural hearing loss (SNHL) of both ears documented in this encounter Orders Outpatient Referral Count Last Ordered Date Fir st Ordered Date AMB REFERRAL TO AUDIOLOGY (ADULT) 1 022 documented in this encounter Care Teams Fireworks Inspector Relationship Specialty Start Date End Date Diana Mao MD [address] [place] [address] PCP - General Geriatric Medicine 11/12/21 04/13/22 documented as of this encounter
--- OUTSIDE RECORDS SUMMARY | 2024-10-15 16:35 | XMS_ITS | Encounter Summary ---
Author Organization [facility] Address [address] [place] [address] Phone Care Team Providers Care Stationary Boiler Fireman Name Role Phone Diana Mao MD Primary Care Provider Encounter Details Date Type Department Care Team (Latest Contact Info) Description 07/09/2021 2:30 PM CDT Procedure visit [facility] Otolaryngology [address] [facility] Medical Office Building [address] [address] Tish Dutta Au.D. 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 - 07/09/2021 2:30 PM CDT Procedures Kirsty Rea [id number] 07/13/21 Patient came in to have aids turned up slightly. ASSESSMENT: Otoscopic examination revealed: EACs and tympanic membranes visualized bilaterally. Aid(s) cleaned and checked. Listening check revealed: Aid(s) clear and no evidence of distortion or intermittent performance. VC and Program buttons functioning properly Electroacoustic analysis was performed and revealed: Senior Engineer Settings (HFA FOG @50) OSPL90 MTG EIN Right ALDA[place]-1 User [phone] Left ALDANA-1 User [phone] Hearing aid programming changes: Gain increased 3 steps 860 - 2,800 Hz in right and gain for soft inputs only from 2,000 - 3,000 Hz increased 3 steps PLAN/RECOMMENDATIONS: Follow up as scheduled or sooner if needed. documented in this encounter Plan of Treatment Not on file documented as of this encounter Visit Diagnoses Diagnosis Sensorineural hearing loss (SNHL) of both ears- Primary documented in this encounter Care Teams Stationary Boiler Fireman Relationship Specialty Start Date End Date Diana Mao MD [address] [place] [address] PCP - General Geriatric Medicine 03/25/20 11/11/21 documented as of this encounter
--- OUTSIDE RECORDS SUMMARY | 2024-10-15 16:35 | XMS_ITS | Encounter Summary ---
Author Organization [facility] Address [address] [facility] [address] [place] [address] Care Team Providers Care Electrotype Finisher Name Role Phone Yudith Gusman MD Primary Care Provide r Encounter Details Date Type Department Care Team (Late st Contact Info) Description 05/28/2022 Orders Only [facility] Primary Care at [place] [address] [facility] [address] [place] [address] Yudith Gusman MD [address] [place] [address] [address] [place] [address] Renal failure, unspecified chronicity (Primary Dx) Social History Tobacco Use Types [...] on file Legal Sex Female 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
--- OUTSIDE RECORDS SUMMARY | 2024-10-15 16:35 | XMS_ITS | Encounter Summary ---
Author Organization [facility] Address [address] [facility] [address] [place] [address] Care Team Providers Care Manager Internet Retails Sales Name Role Phone Yudith Gusman MD Primary Care Provide r Encounter Details Date Type Department Care Team (Late st Contact Info) Description 08/24/2022 Telephone [facility] Primary Care at [place] 2 [facility] [address] [place] [address] Yudith Gusman MD [address] [place] [address] [address] [place] [address] Social History Tobacco Use Types Packs/Day Years [...] on file Legal Sex Female 3:00 AM INFORMATION WRITER Gender Identity Not on file Sexual Orientation Not on file documented as of this encounter Miscellaneous Notes * Telephone Encounter - Rebeca Hernandez 09/27/2022 9:11 AM CST Fyi to jg-after numerous call attempts and no show letter sent but still no response to r/s appt. thanks RMATION WRITER * Telephone Encounter - Rebeca Hernandez - 09/08/2022 8:23 AM CST 09/08/22-no show letter sent to reschedule appt with dr crouch. adb RMATION WRITER * Telephone Encounter - Rebeca Hernandez - 09/07/2022 3:05 PM CST 09/07/22-mailbox is full-reschedule appt with dr crouch. adb RMATION WRITER * Telephone Encounter - Rebeca Hernandez - 09/06/2022 12:32 PM CST 09/06/22-mailbox is full-is pt still in hosp? Try to reschedule appointment with dr crouch from 08/24/22. adb RMATION WRITER * Telephone Encounter - Rebeca Hernandez - 08/26/2022 10:07 AM CDT Allowing time to be dc'd and r/s * Telephone Encounter - Saurav Larry MA - 08/25/2022 2:30 PM CDT Pt's son is calling in stating the pt is currently in the hospital. Thought the appt was today and was calling to cancel. Informed pt that the appt was yesterday and he apologized for missing it * Telephone Encounter - Rebeca Hernandez - 08/25/2022 12:48 PM CDT 08/25/22-lmom. adb * Telephone Encounter - Sabrina Quevedo MA - 08/24/2022 4:09 PM CDT Patient NO SHOW w/JGG Appt date/time:08-24-22 @ 3:15 PM Reason for appt: 3 mo fu htn. ODR for lab orders NOV: 04-18-23 JUNG: 05-28-22 # of cxl or no shows in last year: 1 ns, 2 cxl Controlled Rx: documented in this encounter Plan of Treatment Not on file documented as of this encounter Visit Diagnoses Not on filedocumented in this encounter Care Teams Manager Internet Retails Sales Relationship Specialty Start Date End Date Yudith Gusman MD 2 [facility] [address] [place], [place] [address], [place] [address] PCP - General Family Medicine 04/14/22 01/24/23 documented as of this encounter
--- OUTSIDE RECORDS SUMMARY | 2024-10-15 16:35 | XMS_ITS | Encounter Summary ---
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 New order placed. * Telephone Encounter - Laura Turner MA - 04/20/2022 8:25 AM CDT Referrals * Telephone Encounter - Yudith Gusman MD - 04/19/2022 6:[address] order for with contrast. Same dx as previous order * Telephone Encounter - Eboni Alegria MA - 04/19/2022 1:35 PM CDT JGG * Telephone Encounter - Gunjan Hansen - 04/19/2022 1:00 PM CDT amh scheduling states CT abd/pelvis has to be with or without. Would like a new order placed. * Telephone Encounter - Eva Stanley - 04/15/2022 9:02 AM CDT ordered * Telephone Encounter - Yudith Gusman MD - 04/14/2022 3:49 PM CDT W/wo contrast * Telephone Encounter - Eboni Alegria MA - 04/14/2022 3:04 PM CDT JGG * Telephone Encounter - Eva Stanley - 04/14/2022 2:59 PM CDT JG- Would you like the CT abd/pel w/wo contrast, wo, or w/ contrast? documented in this encounter Plan of Treatment Not on file documented as of this encounter Visit Diagnoses Not on filedocumented in this encounter Care Teams Student Records Specialist Relationship Specialty Start Date End Date Yudith Gusman MD 2 [facility] [address] [place] [address] PCP - General Family Medicine 04/14/22 01/24/23 documented as of this encounter
--- OUTSIDE RECORDS SUMMARY | 2024-10-15 16:35 | XMS_ITS | Encounter Summary ---
Author Organization [facility] Address [address] [place] [address] Phone Care Team Providers Care Computer Typesetter Keyliner Name Role Phone Yudith Gusman MD Primary Care Provide r Encounter Details Date Type Department Care Team (Late st Contact Info) Description 04/27/2022 Documentation [facility] Otolaryngology 10[address] [facility] Medical Office Building 4 [facility] [address] [place] [address] Tish Dutta Au.D. 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 documented in this encounter Plan of Treatment Not on file documented as of this encounter Visit Diagnoses Not on filedocumented in this encounter Care Teams Computer Typesetter Keyliner Relationship Specialty Start Date End Date Yudith Gusman MD [address] [facility] [address] REYES [address] [place] [address] PCP - General Family Medicine 04/14/22 01/24/23 documented as of this encounter
--- OUTSIDE RECORDS SUMMARY | 2024-10-15 16:35 | XMS_ITS | Encounter Summary ---
Author Organization [facility] Address [address] [place] [address] Phone Care Team Providers Care Aboriginal Liaison Officer Name Role Phone Yudith Gusman MD Primary Care Provide r Reason for Referral * Consultation (Routine) - Closed Specialty Diagnoses / Procedures Referred By Abena torrez Referred To Contact Audiology Diagnoses Sensorineural hearing loss (SNHL) of both ears Yudith Gusman MD 2 [facility] [address] REYES [address] [place] [address] Phone: tel: fax: [facility] (All Locations) Referral ID Status Reason Start Date Expiration Date V isits Requested Visits Authorized [id number] Closed Specialty Services Required 12/07/2022 01/06/2024 12 12 Question Answer Please select the performing region: [facility] (All Locations) [167] # of visits: 1 RITY TRAINER Reason for Visit * Consultation (Routine) - Closed Specialty Diagnoses / Procedures Referred By Abena torrez Referred To Contact Audiology Diagnoses Sensorineural hearing loss (SNHL) of both ears Yudith Gusman MD 2 [facility] [address] REYES [address] [place] [address] Phone: tel: fax: [facility] (All Locations) Referral ID Status Reason Start Date Expiration Date V isits Requested Visits Authorized [id number] Closed Specialty Services Required 12/07/2022 01/06/2024 12 12 Encounter Details Date Type Department Care Team (Latest Contact Info) Description 12/15/2022 1:00 PM SECURITY TRAINER Procedure visit [facility] Otolaryngology 10[address] [facility] Medical Office Building 4 [address] [place] [address] Tish Dutta Au.D. [address] [facility] [address] [place] [address] Sensorineural hearing loss (SNHL) of [...] on file Legal Sex Female 3:00 AM SECURITY TRAINER Gender Identity Not on file Sexual Orientation Not on file documented as of this encounter Procedure Notes * Tish Dutta Au.D. - 12/15/2022 1:00 PM CST Procedures Kirsty Rea [id number] 12/15/22 Patient's daughter Imelda brought in hearing aids. Right slim tip shell was broken and large part ofshell was missing. Imelda also mentioned Kirsty being concerned one of them wasn't working properly. 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 ASSESSMENT: Aid(s) cleaned and checked. The aids were brought in and needed to be charged to be tested. Earmold(s) sanitized Listening check revealed: Aid(s) clear and no evidence of distortion or intermittent performance. VC and Program buttons functioning properly Electroacoustic analysis was performed and revealed: Clinical Lab Assistant Settings OSPL90 HFA FOG @50 EIN Right ALDANA-1 Test 107.9 44.6 9.3 Left ALDANA-1 Test 107 45.9 14.5 Hearing aid programming changes: No adjustments were made to the settings today Initial testing revealed left aid to be weak. The aid worked well after 1M hydraulic spinner was replaced with stock item. New right slim tip will be ordered with serial number on file. Q$75 due at brass pickler. PLAN/RECOMMENDATIONS: Patient is very ill, per Imelda, and it is difficulty for her to come into the office. Imelda will becontacted once the mold is in and it will be attached to the aid at that time. The aids were taken home and the right aid will be brought back to have mold attached. RITY TRAINER documented in this encounter Plan of Treatment Scheduled Referrals Name Type Priority Associated Diagnoses Order Schedule Ambulatory referral to Audiology (ADULT) Outpatient Referral Routine Sensorineural hearing loss (SNHL) of both ears Expected: 2022 (Approximate), Expires: 12/07/2023 documented as of this encounter Visit Diagnoses Diagnosis Sensorineural hearing loss (SNHL) of both ears- Primary documented in this encounter Care Teams Aboriginal Liaison Officer Relationship Specialty Start Date End Date Yudith Gusman MD 2 [facility] [address] REYES [address] [place] [address] PCP - General Family Medicine 04/14/22 01/24/23 documented as of this encounter
--- OUTSIDE RECORDS SUMMARY | 2024-10-15 16:35 | XMS_ITS | Encounter Summary ---
Author Organization [facility] Address [address] [place] [address] Phone Care Team Providers Care Awning Installer Name Role Phone Diana Mao MD Primary Care Provider Encounter Details Date Type Department Care Team (Late st Contact Info) Description 01/20/2021 Documentation [facility] Otolaryngology [facility]4 [facility] Medical Office Building [address] [phone] Tish Dutta Au.D. [address] [address] Social History Tobacco Use Types Packs/Day Years Used Date Smoking Tobacco: Former Smokeless Tobacco: Never Alcohol Use Standard Drinks/Week Comments Yes 0 (1 standard drink = 0.6 oz pur e alcohol) Comments Unknown Sex and Gender Information Value Date Recorded Sex Assigned at Not on file Legal Sex Female 3:00 AM RADIO DISPATCHER Gender Identity Not on file Sexual Orientation Not on file documented as of this encounter Progress Notes * Tish Dutta Au.D. - 01/20/2021 6:05 PM CDT Patient spoke with Darell at the water[facility] director and authorized use of L/D replacement for Left aid. Replacement left and and left slim tip will be ordered and patient will be contacted. Q$360 documented in this encounter Plan of Treatment Not on file documented as of this encounter Visit Diagnoses Not on filedocumented in this encounter Care Teams Awning Installer Relationship Specialty Start Date End Date Diana Mao MD [address] [place] [address] PCP - General Geriatric Medicine 03/25/20 11/11/21 documented as of this encounter
--- OUTSIDE RECORDS SUMMARY | 2024-10-15 16:35 | XMS_ITS | Encounter Summary ---
Author Organization [facility] Address [address] [address] Care Team Providers Care Steel Fabricating Supervisor Name Role Phone Diana Mao MD Primary Care Provider [phone] Reason for Visit * Reason Onset Date Comments medical Question 01/20/2021 Encounter Details Date Type Department Care Team (Late st Contact Info) Description 01/20/2021 Telephone [facility] Orthopedics and Sports Medicine 8 [place] [address] Cherry De La Cruz PA [address] [place] [address] DR REYES [address] [place] [phone] medical Question Social History Tobacco Use Types Packs/Day Years Used Date Smoking Tobacco: Former Smokeless Tobacco: Never Alcohol Use Standard Drinks/Week Comments Yes 0 (1 standard drink = 0.6 oz pur e alcohol) Comments Unknown Sex and Gender Information Value Date Recorded Sex Assigned at Not on file Legal Sex Female 3:00 AM RADIATION CONTROL SPECIALIST Gender Identity Not on file Sexual Orientation Not on file documented as of this encounter Miscellaneous Notes * Telephone Encounter - Tariq Cruz - 01/20/2021 1:44 PM CDT Patient LM to call her I tried to call her back and let Message for her to call either office documented in this encounter Plan of Treatment Not on file documented as of this encounter Visit Diagnoses Not on filedocumented in this encounter Care Teams Steel Fabricating Supervisor Relationship Specialty Start Date End Date Diana Mao MD [address] [place] [address] PCP - General Geriatric Medicine 03/25/20 11/11/21 documented as of this encounter
--- OUTSIDE RECORDS SUMMARY | 2024-10-15 16:35 | XMS_ITS | Encounter Summary ---
Author Organization [facility] Address [address] [facility] [address] [place] [address] Care Team Providers Care Inventory Associate And Driver Name Role Phone Diana Mao MD Primary Care Provider [phone] Encounter Details Date Type Department Care Team (Late st Contact Info) Description 07/13/2021 Telephone [facility] 2 [facility] [address] [place] [address] Jc Macdonald MD [address] [facility] [address] [address] Social History Tobacco Use Types Packs/Day Years Used Date Smoking Tobacco: Former Smokeless Tobacco: Never Alcohol Use Standard Drinks/Week Comments Yes 0 (1 standard drink = 0.6 oz pur e alcohol) Comments Unknown Sex and Gender Information Value Date Recorded Sex Assigned at Not on file Legal Sex Female 3:00 AM BOX CUTTER Gender Identity Not on file Sexual Orientation Not on file documented as of this encounter Miscellaneous Notes * Telephone Encounter - Rebeca Hernandez - 07/20/2021 10:55 AM CDT none * Telephone Encounter - Jc Macdonald MD - 07/20/2021 9:23 AM CDT No need for letter. PCP listed as someone else. Wait for her to reschedule. * Telephone Encounter - Rebeca Hernandez - 07/20/2021 9:12 AM CDT fyi to bm-filtration operator cxl'd appt, was not asked when cxl'd if still want to be a filtration operator, I have left several messages with no response does bm want a letter sent? Please advise.... * Telephone Encounter - Rebeca Hernandez - 07/17/2021 8:39 AM CDT 07/17/21-lmom. adb * Telephone Encounter - Rebeca Hernandez - 07/15/2021 9:11 AM CDT 07/15/21-lmom-is she still wanting to be a filtration operator with bm? adb * Telephone Encounter - Gunjan Hansen - 07/13/2021 9:18 AM CDT Appointment Cancellation Appt date/time: 07/14/21 Reason for appt: new pt cpe Reason for cxl: declined to specify NOV: 0 JUNG: 0 # of cxl or no shows in last year: just this one Controlled Rx: 0 documented in this encounter Plan of Treatment Not on file documented as of this encounter Visit Diagnoses Not on filedocumented in this encounter Care Teams Inventory Associate And Driver Relationship Specialty Start Date End Date Diana Mao MD [address] [place] [address] PCP - General Geriatric Medicine 03/25/20 11/11/21 documented as of this encounter
--- OUTSIDE RECORDS SUMMARY | 2024-10-15 16:35 | XMS_ITS | Encounter Summary ---
Author Organization [facility] Address [address] [place] [address] Phone Care Team Providers Care Fruit Or Nut Picker Name Role Phone Yudith Gusman MD Primary Care Provide r Reason for Visit * Consultation (Routine) - Closed Specialty Diagnoses / Procedures Referred By Abena torrez Referred To Contact Audiology Diagnoses Sensorineural hearing loss (SNHL) of both ears Diana Mao MD [address] [place] [address] Phone: tel: fax: [facility] (All Locations) Referral ID Status Reason Start Date Expiration Date V isits Requested Visits Authorized [id number] Closed Specialty Services Required 11/13/2021 10/30/2022 99 99 Encounter Details Date Type Department Care Team (Latest Contact Info) Description 05/14/2022 4:00 PM CDT Procedure visit [facility] Otolaryngology 10[address] [facility] Medical Office Building [address] [phone] Tish Dutta Au.D. 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 - 05/14/2022 4:00 PM CDT Procedures Kirsty came in today due to her right hearing aid indicator being yellow in the morning when sittingin her head cleaning porter. Patient does not recall if the light was blinking or not. Since the hearing aid was sent in for this same issue a few weeks ago, patient reports it has only occurred once. Kirsty was encouraged to keep a log of any issues regarding her hearing aid batteries and to call back if issues persist or become more frequent. Patient was also reminded to not close her head cleaning porter when charging the aids overnight to help prevent any disconnection with the charging contacts. Battery contacts were cleaned on both the hearing aids and the patient's head cleaning porter, which is new and was given to the patient recently. Warranty extension information was provided to the patient and she will follow up before 08/30/2022to discuss this. documented in this encounter Plan of Treatment Not on file documented as of this encounter Visit Diagnoses Diagnosis Sensorineural hearing loss (SNHL) of both ears- Primary documented in this encounter Care Teams Fruit Or Nut Picker Relationship Specialty Start Date End Date Yudith Gusman MD [address] [facility] [place] [address] PCP - General Family Medicine 04/14/22 01/24/23 documented as of this encounter
--- OUTSIDE RECORDS SUMMARY | 2024-10-15 16:35 | XMS_ITS | Encounter Summary ---
Author Organization [facility] Address [address] [address] Care Team Providers Care Ict Business Analyst Name Role Phone Diana Mao MD Primary Care Provider [phone] Reason for Visit * Diagnostic Imaging (Routine) - Closed Specialty Diagnoses / Procedures Referred By Contac t Referred To Contact Diagnoses Right shoulder pain, unspecified chronicity Procedures XR Shoulder Right 2 or More Views Cherry De La Cruz PA Phone: tel: fax: [facility] Referral ID Status Reason Start Date Expiration Date Visits Re quested Visits Authorized [id number] Closed 12/18/2020 01/17/2022 1 1 Encounter Details Date Type Department Care Team (Latest Contact Info) Description 12/18/2020 9:40 AM TECHNICAL INSPECTOR - 12/18/2020 11:59 PM TECHNICAL INSPECTOR Hospital Encounter [facility] Orthopedics and Sports Medicine [address] [place] [phone] Discharge Disposition: Discharge to home or self care Social History Tobacco Use Types Packs/Day Years Used Date Smoking Tobacco: Former Smokeless Tobacco: Never Alcohol Use Standard Drinks/Week Comments Yes 0 (1 standard drink = 0.6 oz pur e alcohol) Comments Unknown Sex and Gender Information Value Date Recorded Sex Assigned at Not on file 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 Gender Identity Not on file Sexual Orientation Not on file documented as of this encounter Medications at Time of Discharge labetaloL (NORMODYNE,TRANDA TE) 200 mg tablet 11/04/2020 NIFEdipine (PROCARDIA XL/ADALAT CC) 90 mg 24 hr tablet Take 90 mg by mouth 11/27/2019 hydroCHLOROthiazi de (HYDRODIURIL) 25 mg tablet daily 01/22/2021 documented as of this encounter Discharge Disposition Disposition Code Departure Means Destination Discharge to home or self care documented in this encounter Plan of Treatment Not on file documented as of this encounter Procedures Procedure Name Priority Date/Time Associated Diagnosis Comments XR SHOULDER RIGHT 2 OR MORE VIEWS Schedule Routine, Read Routine (OP Routine) 12/22/2020 8:17 AM TECHNICAL INSPECTOR Primary osteoarthritis of right shoulder documented in this encounter Results * XR Shoulder Right 2 or More Views (12/22/2020 8:17 AM TECHNICAL INSPECTOR) Anatomical Region Laterality Modality Upper Extremities, Shoulder Right Radi ographic Imaging Narrative 12/22/2020 8:17 AM TECHNICAL INSPECTOR X-rays of the right shoulder are viewed and interpreted in clinic today. ?? These demonstrate no fracture subluxation or destructive lesions. ??AC joint DJD changes present with . ??Glenohumeral arthritic change present with joint space narrowing and osteophyte formation. ?? Cherry ZAMUDIO IMG XR PROCEDURES Final Result documented in this encounter Visit Diagnoses Not on filedocumented in this encounter Care Teams Ict Business Analyst Relationship Specialty Start Date End Date Diana Mao MD [address] [place] [address] PCP - General Geriatric Medicine 03/25/20 11/11/21 documented as of this encounter
--- OUTSIDE RECORDS SUMMARY | 2024-10-15 16:35 | XMS_ITS | Encounter Summary ---
Author Organization [facility] Address [address] [place] [address] Phone Care Team Providers Care Director Nursing Service Name Role Phone Yudith Gusman MD Primary Care Provide r Reason for Visit * Consultation (Routine) - Closed Specialty Diagnoses / Procedures Referred By Abena torrez Referred To Contact Audiology Diagnoses Sensorineural hearing loss (SNHL) of both ears Diana Mao MD [address] [place] [address] Phone: tel: fax: [facility] (All Locations) Referral ID Status Reason Start Date Expiration Date V isits Requested Visits Authorized [id number] Closed Specialty Services Required 11/13/2021 10/30/2022 99 99 Encounter Details Date Type Department Care Team (Latest Contact Info) Description 07/23/2022 1:00 PM CDT Procedure visit [facility] Otolaryngology [address] [facility] Medical Office Building [address] [phone] Tish Dutta Au.D. 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 - 07/23/2022 1:00 PM CDT Procedures Kirsty Rea [id number] 08/09/22 Scheduled Routine Check before the warranty expires on 08/30/2022 Patient reports group chief operator seems to be working well and the aids seem to be charging. ASSESSMENT: Otoscopic examination revealed: EACs and tympanic membranes visualized bilaterally. Aid(s) cleaned and checked. Listening check revealed: Aid(s) clear and no evidence of distortion or intermittent performance. VC and Program buttons functioning properly Electroacoustic analysis was performed and revealed: Home Care Nurse Settings OSPL90 HFA FOG @50 EIN Right ALDANA-1 User 96.9 25.9 23.3 Left ALDANA-1 User 109.4 31.7 29.9 Hearing aid programming changes: No adjustments were made to the settings today. Data logging reveals aids are used over 16 hours daily L/D for left was used in 2020. Reviewed warranty extension with Kirsty and she will call the office if interested in extending the warranty an additional year. Encouraged patient to consider having aids sent to [facility] for warranty overhaul if not considering extending the warranty. PLAN/RECOMMENDATIONS: Hearing aid check in December with a hearing test as scheduled or sooner if needed documented in this encounter Plan of Treatment Not on file documented as of this encounter Visit Diagnoses Diagnosis Sensorineural hearing loss (SNHL) of both ears- Primary documented in this encounter Care Teams Director Nursing Service Relationship Specialty Start Date End Date Yudith Gusman MD [address] [place] [address] DR REYES [address] [place] [address] PCP - General Family Medicine 04/14/22 01/24/23 documented as of this encounter
--- OUTSIDE RECORDS SUMMARY | 2024-10-15 16:35 | XMS_ITS | Encounter Summary ---
Author Organization [facility] Address [address] [place] [address] Phone Care Team Providers Care Primary Care Coordinator Name Role Phone Sabrina Villaseñor LOCK TENDER Primary Care Provider [phone] Reason for Visit * Reason Onset Date Comments Hearing Aid Fitting 05/20/2023 Encounter Details Date Type Department Care Team (Late st Contact Info) Description 05/20/2023 Documentation [facility] Otolaryngology [address] [facility], [address] [place] [address] Tish Dutta Au.D. 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 - 05/20/2023 11:59 PM CDT Patient's daughter came in to sheepskin pickler the new left aid and the right aid that was replaced under L/D warranty. Her daughter reported Mrs. Rea is very confused with technology lately and they are unsure wherethe TV Connector is. If they find it and the patient wants to use it she was informed the aids willneed to be paired to the TV Connector. The family will follow up if any difficulties arise. documented in this encounter Plan of Treatment Not on file documented as of this encounter Visit Diagnoses Not on filedocumented in this encounter Care Teams Primary Care Coordinator Relationship Specialty Start Date End Date Sabrina Villaseñor NP [facility] [address] PCP - General Nurse Practitioner 01/25/23 documented as of this encounter
--- OUTSIDE RECORDS SUMMARY | 2024-10-15 16:35 | XMS_ITS | Encounter Summary ---
Author Organization [facility] Address [address] [place] [address] Phone Care Team Providers Care Associate Director Finance Name Role Phone Yudith Gusman MD Primary Care Provide r Encounter Details Date Type Department Care Team (Late st Contact Info) Description 08/30/2022 Documentation [facility] Otolaryngology [facility] [address] [facility], [address] [place] [address] Tish Dutta Au.D. 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 - 08/30/2022 4:22 PM CDT Patient's daughter called to extend the warranty for the aids for one additional year and also wants to extend the service plan for one additional year. S/W Anjali at [facility] and the warranty will now on 08/30/2023 (L/D coverage exists only for the right aid at this time). Service plan will on 08/30/2023. documented in this encounter Plan of Treatment Not on file documented as of this encounter Visit Diagnoses Not on filedocumented in this encounter Care Teams Associate Director Finance Relationship Specialty Start Date End Date Yudith Gusman MD [address] [facility] [address] [place] [address] PCP - General Family Medicine 04/14/22 01/24/23 documented as of this encounter
--- OUTSIDE RECORDS SUMMARY | 2024-10-15 16:35 | XMS_ITS | Encounter Summary ---
Author Organization [facility] Healthcare Address [address] [place] [address] Care Team Providers Care Public Relations Account Executive Name Role Phone Yudith Gusman MD Primary Care Provide r Reason for Visit * MRI/CAT/PET Scan (Routine) - Closed Specialty Diagnoses / Procedures Referred By Contac t Referred To Contact Diagnoses Chronic diarrhea Procedures CT Abdomen Pelvis WO Contrast CT Abdomen Pelvis W Contrast Yudith Gusman MD [address] [facility] [address] REYES [address] [place] [address] Phone: tel: fax: [address] [address] Referral ID Status Reason Start Date Expiration Date Visits Re quested Visits Authorized [id number] Closed 05/10/2022 11/06/2022 1 1 Encounter Details Date Type Department Care Team (Latest Contact Info) Description 05/26/2022 2:32 PM CDT - 05/26/2022 11:59 PM CDT Hospital Encounter [facility] [address] [place] [address] Yudith Gusman MD [address] [facility] [address] REYES [address] [place] [address] Chronic diarrhea Discharge Disposition: Discharge to home or self [...] on file 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 AVOID FACE. 01/08/2021 documented as of this encounter Discharge Disposition Disposition Code Departure Means Destination Discharge to home or self care documented in this encounter Plan of Treatment Not on file documented as of this encounter Procedures Procedure Name Priority Date/Time Associated Diagnosis Comments CT ABDOMEN PELVIS WO CONTRAST Schedule Routine, Read Routine (OP Routine) 05/26/2022 3:24 PM CDT Chronic diarrhea CREATININE, WHOLE BLOOD STAT 05/26/2022 2:41 PM CDT documented in this encounter Results * CT Abdomen Pelvis WO Contrast (05/26/2022 3:24 PM CDT) Anatomical Region Laterality Modality Body N/A Computed Tomogra phy 05/27/2022 12:0 4 AM CDT Narrative 05/27/2022 12:07 AM CDT EXAM DESCRIPTION: ?? CT ABDOMEN PELVIS WO CONTRAST REASON FOR STUDY: ?? Diarrhea, chronic diarrhea ?? Chronic diarrhea ??Pt states she has had is for 2 years ??Unable to use iv contrast. Patients GFR was 12, she has kidney failure ?? TECHNIQUE: CT scan of the abdomen and pelvis performed without intravenous and ??without ??oral contrast using helical scanning technique. Reconstructed coronal and sagittal MPR images reviewed. All images stored on PACS. ?? Automated exposure control was used as a dose optimization technique for this examination. COMPARISON: ?? None FINDINGS: LOWER CHEST: ??Lung bases clear. ??Mild cardiomegaly. ??No effusion. LIVER/BILIARY: ??Liver unremarkable. ?? Biliary tree normal in caliber. GALLBLADDER: ??Absent. SPLEEN: ??Normal. PANCREAS: ??Normal. ADRENAL GLANDS: ??Normal. KIDNEYS/URINARY TRACT: ??Normal. ?? GI: ??Stomach and small bowel appear normal. ??Nonspecific circumferential rectal wall thickening with mild haziness. ??Colon otherwise unremarkable. ?? Appendix not seen. ?? OTHER ABDOMINAL/PELVIS: ??Major vascular structures are normal in caliber with scattered atherosclerotic calcifications. ??No enlarged lymph node or free fluid. MSK: ??Moderate to advanced disc disease and facet arthropathy. ??Hip and SI joint arthrosis. ?? BODY WALL: ??Early decubitus formation suspected over the sacrum and ischial tuberosities. ?? IMPRESSION: 1. ?? Nonspecific distal rectal wall thickening; colonoscopy follow-up could be considered. ??Colon otherwise unremarkable. 2. ?? Questionable early decubitus formation over the sacrum and ischial tuberosities. 3. ?? Chronic findings as above. ?? THIS IS AN ELECTRONICALLY VERIFIED FINAL REPORT 05/27/2022 12:07 AM - Electronically signed by ??Rubio Pulliam M.D. AR: BRENDA D: ??05/27/2022 12:07 AM T: ??05/27/2022 12:07 AM Report ID: [id number] Reading Location: ??[id number] Procedure Note Rubio Pulliam MD - 05/27/2022 EXAM DESCRIPTION: CT ABDOMEN PELVIS WO CONTRAST REASON FOR STUDY: Diarrhea, chronic diarrhea Chronic diarrhea Pt states she has had is for 2 years Unable to use iv contrast. Patients GFR was 12, she has kidney failure TECHNIQUE: CT scan of the abdomen and pelvis performed without intravenousand without oral contrast using helical scanning technique. Reconstructed coronal and sagittal MPR images reviewed. All images stored on PACS. Automated exposure control was used as a dose optimization technique forthis examination. COMPARISON: None FINDINGS: LOWER CHEST: Lung bases clear. Mild cardiomegaly. No effusion. LIVER/BILIARY: Liver unremarkable. Biliary tree normal in caliber. GALLBLADDER: Absent. SPLEEN: Normal. PANCREAS: Normal. ADRENAL GLANDS: Normal. KIDNEYS/URINARY TRACT: Normal. GI: Stomach and small bowel appear normal. Nonspecific circumferential rectal wall thickening with mild haziness. Colon otherwise unremarkable. Appendix not seen. OTHER ABDOMINAL/PELVIS: Major vascular structures are normal in caliberwith scattered atherosclerotic calcifications. No enlarged lymph node or free fluid. MSK: Moderate to advanced disc disease and facet arthropathy. Hip and SI joint arthrosis. BODY WALL: Early decubitus formation suspected over the sacrum andischial tuberosities. IMPRESSION: 1. Nonspecific distal rectal wall thickening; colonoscopy follow-upcould be considered. Colon otherwise unremarkable. 2. Questionable early decubitus formation over the sacrum and ischial tuberosities. 3. Chronic findings as above. THIS IS AN ELECTRONICALLY VERIFIED FINAL REPORT 05/27/2022 12:07 AM - Electronically signed by Rubio Pulliam M.D. AR: BRENDA Report ID: [id number] Reading Location: [place] [address] Yudith Gusman MD IMG CT PROCEDURES Fin al Result * (ABNORMAL) Creatinine, whole blood (05/26/2022 2:41 PM CDT) Creatinine, bld 3.34(H) 0.60 - 1.30 mg/dL [facility] ([facility]) Blood 05/26/2022 2:41 PM CDT 05/26/2022 2:42 PM CDT Yudith Gusman MD LAB BLOOD ORDERABLES Final Result [facility] ([place]) 1 [facility] [place] [address] documented in this encounter Visit Diagnoses Diagnosis Chronic diarrhea Diarrhea documented in this encounter Care Teams Public Relations Account Executive Relationship Specialty Start Date End Date Yudith Gusman MD [address] [facility] [address] REYES [address] [place] [address] PCP - General Family Medicine 04/14/22 01/24/23 documented as of this encounter
--- OUTSIDE RECORDS SUMMARY | 2024-10-15 16:35 | XMS_ITS | Encounter Summary ---
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 Gender Identity Not on file Sexual Orientation Not on file documented as of this encounter Miscellaneous Notes * Telephone Encounter - Dominique Bustillos RT - 05/25/2022 2:16 PM CDT conf appt documented in this encounter Plan of Treatment Not on file documented as of this encounter Visit Diagnoses Not on filedocumented in this encounter Care Teams Engineering Vice President Relationship Specialty Start Date End Date Yudith Gusman MD [address] [place] [address] DR REYES [address] [place] [address] PCP - General Family Medicine 04/14/22 01/24/23 documented as of this encounter
--- OUTSIDE RECORDS SUMMARY | 2024-10-15 16:35 | XMS_ITS | Encounter Summary ---
Author Organization [facility] Address [address] [place] [address] Care Team Providers Care Collateral Analyst Name Role Phone Yudith Gusman MD Primary Care Provide r Encounter Details Date Type Department Care Team (Late st Contact Info) Description 05/26/2022 Telephone [facility] Primary Care at [place] [address] [facility] [facility] [address] [place] [address] Yudith Gusman MD [address] [place] [address] [address] [place] [address] Social History Tobacco Use Types Packs/Day Years [...] on file 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 She is scheduled for a consult with Dr. Desai. I have contacted their office and they are adding on the appointment notes to discuss the abnormalCT scan. Referral entered and faxed to Dr. Vang's office for nephrology. They will contact patient to schedule. * Telephone Encounter - Eboni Alegria MA - 05/28/2022 9:26 AM CDT Patient has appt for Colonoscopy Please see nephrology referral * Telephone Encounter - Eboni Alegria MA - 05/28/2022 9:23 AM CDT Can let patient know that the ct just showed some wall thickening of the colon. Recommendation is acolonoscopy. Referral to gi dx abnormal ct of the abdomen * Telephone Encounter - Eboni Alegria MA - 05/27/2022 8:48 AM CDT lmom to call back * Telephone Encounter - Eboni Alegria MA - 05/26/2022 3:49 PM CDT lmom for patients daughter (on HIPAA) to call back * Telephone Encounter - Eboni Alegria MA - 05/26/2022 3:24 PM CDT lmom to call back * Telephone Encounter - Eboni Alegria MA - 05/26/2022 3:23 PM CDT ----- Message from Yudith Gusman MD sent at 05/26/2022 3:08 PM CDT ----- Was informed by PSR that patient's GFR was 12. Needs referral to nephrology for kidney failure unknown chronicity and no contrast for the ct of the abdomen documented in this encounter Plan of Treatment Not on file documented as of this encounter Visit Diagnoses Not on filedocumented in this encounter Care Teams Collateral Analyst Relationship Specialty Start Date End Date Yudith Gusman MD [address] [facility] [address] REYES [address] [place] [address] PCP - General Family Medicine 04/14/22 01/24/23 documented as of this encounter
--- OUTSIDE RECORDS SUMMARY | 2024-10-15 16:35 | XMS_ITS | Encounter Summary ---
Author Organization [facility] Address [address] [place] [address] Phone Care Team Providers Care Tenter Frame Back Tender Name Role Phone Sabrina Villaseñor DRAFTER Primary Care Provider [phone] Reason for Visit * Consultation (Routine) - Closed Specialty Diagnoses / Procedures Referred By Abena t Referred To Contact Audiology Diagnoses Sensorineural hearing loss (SNHL) of both ears Yudith Gusman MD [address] [place] [address] Phone: tel: fax: [facility] (All Locations) Referral ID Status Reason Start Date Expiration Date V isits Requested Visits Authorized [id number] Closed Specialty Services Required 12/07/2022 01/06/2024 12 12 Encounter Details Date Type Department Care Team (Latest Contact Info) Description 05/20/2023 8:00 AM CDT Procedure visit [facility] Otolaryngology [address] [facility] [address] [address] Tish Dutta Au.D. 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 - 05/20/2023 8:00 AM CDT Patient's daughter came in to pick out hand the new left aid and the right [...] will follow up if any difficulties arise. Procedures documented in this encounter Plan of Treatment Not on file documented as of this encounter Visit Diagnoses Diagnosis Sensorineural hearing loss (SNHL) of both ears- Primary documented in this encounter Care Teams Tenter Frame Back Tender Relationship Specialty Start Date End Date Sabrina Villaseñor NP [address] [place] [address] PCP - General Nurse Practitioner 01/25/23 documented as of this encounter
--- OUTSIDE RECORDS SUMMARY | 2024-10-15 16:35 | XMS_ITS | Encounter Summary ---
Author Organization [facility] Address [address] [place] [address] Phone Care Team Providers Care Prorate Clerk Name Role Phone Sabrina Villaseñor HEEL SCOURER Primary Care Provider [phone]- [phone] Encounter Details Date Type Department Care Team (Late st Contact Info) Description 05/06/2023 Telephone [facility] Otol[facility]ology [facility] Building [address] [place] [address] Tish Dutta Au.D. 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 - 05/06/2023 10:39 AM CDT Called patient's daughterAgnes and informed her the new left aid, the replacement right aid, and the new slim tips are in. Agnes said her sister or nephew will be over next week to pick everything up. Agnes is comfortable cleaning the aids and thought that an orientation is not necessary. The total is $2,540 and this will be paid when everything is picked up. Agnes is aware the aids were programmed with the previous settings. documented in this encounter Plan of Treatment Not on file documented as of this encounter Visit Diagnoses Not on filedocumented in this encounter Care Teams Prorate Clerk Relationship Specialty Start Date End Date Sabrina Villaseñor NP [address] [place] [address] PCP - General Nurse Practitioner 01/25/23 documented as of this encounter
--- OUTSIDE RECORDS SUMMARY | 2024-10-15 16:35 | XMS_ITS | Encounter Summary ---
Author Organization [facility] Address [address] [facility] [facility] [address] [place] [address] Care Team Providers Care Civil Engineering Design Draftsperson Name Role Phone Yudith Gusman MD Primary Care Provide r Reason for Visit * Reason Onset Date Comments Medical Question/Miscellaneous 09/14/2022 Encounter Details Date Type Department Care Team ([facility] Contact Info) Description 09/14/2022 Telephone [facility] Primary Care at [address] [place] [address] Yudith Gumsan MD [address] [place] [address] [address] [place] [address] Medical Question/Miscellaneous Social History Tobacco Use Types Packs/Day Years [...] on file 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 She [facility] and that the patient is immobile. She stated she just does not want patient to be discharged from clinic. Caller???s Call back #: [phone] Does message need to be routed?Yes-FYI Only EQUIN WIG MAKER documented in this encounter Plan of Treatment Not on file documented as of this encounter Visit Diagnoses Not on filedocumented in this encounter Care Teams Civil Engineering Design Draftsperson Relationship Specialty Start Date End Date Yudith Gusman MD [address] [place] [address] DR REYES [address] [place] [address] PCP - General Family Medicine 04/14/22 01/24/23 documented as of this encounter
--- OUTSIDE RECORDS SUMMARY | 2024-10-15 16:35 | XMS_ITS | Encounter Summary ---
Author Organization [facility] Address [address] [place] [address] Phone Care Team Providers Care Tonsorial Artist Name Role Phone Diana Mao MD Primary Care Provider [phone] Reason for Visit * Consultation (Routine) - Closed Specialty Diagnoses / Procedures Referred By Abena t Referred To Contact Audiology Diagnoses Sensorineural hearing loss (SNHL) of both ears Diana Mao MD [address] [place] [address] Phone: tel: fax: [facility] (All Locations) Referral ID Status Reason Start Date Expiration Date V isits Requested Visits Authorized [id number] Closed Specialty Services Required 11/13/2021 10/30/2022 99 99 Encounter Details Date Type Department Care Team (Latest Contact Info) Description 04/05/2022 4:00 PM CDT Procedure visit [facility] Otolaryngology [address] [facility] Office Building [address] [place] [address] Tish Dutta Au.D. 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 - 04/05/2022 4:00 PM CDT Procedures Kirsty Rea [id number] 04/08/22 Problem with aid - left aid and not charging properly ASSESSMENT: Otoscopic examination revealed: EACs and tympanic membranes visualized bilaterally. Aid(s) cleaned and checked. Charging was intermittent with right aid when put into left charging port. Listening check revealed: Aid(s) clear and no evidence of distortion or intermittent performance. VC and Program buttons functioning properly Hearing aid programming changes: No adjustments were made to the settings today Aids and air cargo specialist supervisor are under warranty. Provided patient with new air cargo specialist supervisor from stock. PLAN/RECOMMENDATIONS: Hearing aid check as scheduled in July. documented in this encounter Plan of Treatment Not on file documented as of this encounter Visit Diagnoses Diagnosis Sensorineural hearing loss (SNHL) of both ears- Primary documented in this encounter Care Teams Tonsorial Artist Relationship Specialty Start Date End Date Diana Mao MD [address] [place] [address] PCP - General Geriatric Medicine 11/12/21 04/13/22 documented as of this encounter
--- OUTSIDE RECORDS SUMMARY | 2024-10-15 16:35 | XMS_ITS | Encounter Summary ---
Author Organization [facility] Address [address] [place] [address] Phone Care Team Providers Care Crayon Sorting Machine Feeder Name Role Phone Sabrina Villaseñor STATION BAGGAGE PORTER Primary Care Provider [phone]- [phone] Encounter Details Date Type Department Care Team (Late st Contact Info) Description 01/25/2023 Telephone [facility] Otolaryngology [facility] Medical Office Building [address] [place] [address] Amanda Rodriguez Social History Tobacco Use Types Packs/Day Years [...] on file 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 She is aware there is a $400 deductible to replace. Daughter will call if aid is not found. documented in this encounter Plan of Treatment Not on file documented as of this encounter Visit Diagnoses Not on filedocumented in this encounter Care Teams Crayon Sorting Machine Feeder Relationship Specialty Start Date End Date Sabrina Villaseñor NP [address] [place] [address] PCP - General Nurse Practitioner 01/25/23 documented as of this encounter
--- OUTSIDE RECORDS SUMMARY | 2024-10-15 16:35 | XMS_ITS | Encounter Summary ---
Author Organization [facility] Address [address] [place] [address] Phone Care Team Providers Care Automotive Buyer Name Role Phone Diana Mao MD Primary Care Provider Reason for Visit * Consultation (Routine) - Closed Specialty Diagnoses / Procedures Referred By Contac t Referred To Contact Audiology Diagnoses Sensorineural hearing loss (SNHL) of both ears Diana Mao MD [address] [place] [address] Phone: tel: fax: [facility] (All Locations) Referral ID Status Reason Start Date Expiration Date V isits Requested Visits Authorized [id number] Closed Specialty Services Required 11/13/2021 10/30/2022 99 99 Encounter Details Date Type Department Care Team (Latest Contact Info) Description 04/13/2022 3:45 PM CDT Procedure visit [facility] Otolaryngology [address] [facility] Medical Office Building [address] [place] [address] Tish Dutta Au.D. 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 - 04/13/2022 3:45 PM CDT Procedures Patient brought in her right hearing aid due to continued charging issue. She reports that the right aid will be in the ios software engineer all night and appear solid red in the morning. A new ios software engineer was supplied during her last visit, but this did not resolve the issue. Right aid will be sent in for repair. Patient will be contacted when the aid returns. documented in this encounter Plan of Treatment Not on file documented as of this encounter Visit Diagnoses Diagnosis Sensorineural hearing loss (SNHL) of both ears- Primary documented in this encounter Care Teams Automotive Buyer Relationship Specialty Start Date End Date Diana Mao MD [address] [place] [address] PCP - General Geriatric Medicine 11/12/21 04/13/22 documented as of this encounter
--- OUTSIDE RECORDS SUMMARY | 2024-10-15 16:35 | XMS_ITS | Encounter Summary ---
Author Organization [facility] Address [address] [place] [address] Phone Care Team Providers Care It Corporate Recruiter Name Role Phone Diana Mao MD Primary Care Provider Encounter Details Date Type Department Care Team (Late st Contact Info) Description 02/04/2021 Telephone [facility] Otol[facility]ology [facility] Medical Office Building [address] [address] Tish Dutta Au.D. 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 - 02/04/2021 11:28 AM CDT Patient called and stated TV connector not working with aids since replacement aid picked up. Walked patient through pairing aids to streamer and patient will call back. documented in this encounter Plan of Treatment Not on file documented as of this encounter Visit Diagnoses Not on filedocumented in this encounter Care Teams It Corporate Recruiter Relationship Specialty Start Date End Date Diana Mao MD DOOR [address] [place] [address] PCP - General Geriatric Medicine 03/25/20 11/11/21 documented as of this encounter
--- OUTSIDE RECORDS SUMMARY | 2024-10-15 16:35 | XMS_ITS | Encounter Summary ---
Author Organization [facility] Address [address] [place] [address] Care Team Providers Care Field Supervisor Seed Production Name Role Phone Diana Mao MD Primary Care Provider Encounter Details Date Type Department Care Team (Late st Contact Info) Description 04/05/2022 Telephone [facility] 2 [facility] [address] [place] [address] Yudith Gusman MD 2 [facility] [address] [place] [address] Social History Tobacco Use Types Packs/Day Years Used Date Smoking Tobacco: Former Smokeless Tobacco: Never Alcohol Use Standard Drinks/Week Comments Yes 0 (1 standard drink = 0.6 oz pur e alcohol) Comments Unknown Sex and Gender Information Value Date Recorded Sex Assigned at Not on file 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 lmtcb to r/s NOV: 0 JUNG: 0 # of cxl or no shows in last year: 2 Controlled Rx: 0 documented in this encounter Plan of Treatment Not on file documented as of this encounter Visit Diagnoses Not on filedocumented in this encounter Care Teams Field Supervisor Seed Production Relationship Specialty Start Date End Date Diana Mao MD [address]L [address] [place] [id number] PCP - General Geriatric Medicine 11/12/21 04/13/22 documented as of this encounter
--- OUTSIDE RECORDS SUMMARY | 2024-10-15 16:35 | XMS_ITS | Encounter Summary ---
Author Organization [facility] Address [address] [place] [address] Care Team Providers Care Printing Machine Mechanic Name Role Phone Yudith Gusman MD Primary Care Provide r Reason for Referral * Diagnostic Imaging (Routine) - Canceled Specialty Diagnoses / Procedures Referred By Contac t Referred To Contact Diagnoses Chronic diarrhea Procedures CT Abdomen Pelvis W WO Contrast Yudith Gusman MD [address] [place] [address] [address] [place] [address] Phone: tel: fax: [facility] [address] [place] [address] Referral ID Status Reason Start Date Expiration Date V isits Requested Visits Authorized [id number] Canceled 04/15/2022 05/15/2023 1 1 Encounter Details Date Type Department Care Team (Late st Contact Info) Description 04/14/2022 Orders Only [facility] 2 [facility] [address] [place] [address] Yudith Gusman MD [address] [facility] [address] [place] [address] Hypertension, essential (Primary Dx); Chronic diarrhea; Prediabetes Social History Tobacco Use Types Packs/Day Years [...] on file 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 Gender Identity Not on file Sexual Orientation Not on file documented as of this encounter Miscellaneous Notes * Addendum Note - Eva Maddox - 04/14/2022 2:34 PM CDTAddended by: EVA MADDOX on: 04/15/2022 09:02 AM Modules accepted: Orders documented in this encounter Plan of Treatment Scheduled Orders Name Type Priority Associated Diagnoses Order Schedule Fecal fat, qualitative Lab Routine Chronic diarrhea Expected: 04/14/2022 (Approximate), Expires: 04/14/2023 LACTOFERRIN FECAL QUALITATIVE - Miscellaneous Test Lab Routine Chronic diarrhea Expected: 04/14/2022 (Approximate), Expires: 04/14/2023 FIT occult blood, fecal Lab Routine Chronic diarrhea Expected: 04/14/2022 (Approximate), Expires: 04/14/2023 Osmolality, stool Lab Routine Chronic diarrhea Expected: 04/14/2022 (Approximate), Expires: 04/14/2023 Stool culture Stool Rectum Microbiology Routine Chronic diarrhea Expected: 04/14/2022 (Approximate), Expires: 04/14/2023 H. pylori antigen, stool Stool Microbiology Routine Chronic diarrhea Expected: 04/14/2022 (Approximate), Expires: 04/14/2023 Pancreatic elastase, stool Lab Routine Chronic diarrhea Expected: 04/14/2022 (Approximate), Expires: 04/14/2023 CBC with auto differential Lab Routine Hypertension, essential Expected: 04/14/2022 (Approximate), Expires: 04/14/2023 Comprehensive metabolic panel Lab Routine Hypertension, essential Expected: 04/14/2022 (Approximate), Expires: 04/14/2023 Lipid panel Lab Routine Hypertension, essential Expected: 04/14/2022 (Approximate), Expires: 04/14/2023 Hemoglobin A1c Lab Routine Prediabetes Expected: 04/14/2022 (Approximate), Expires: 04/14/2023 Comprehensive metabolic panel Lab Routine Hypertension, essential Expected: 04/02/2023 (Approximate), Expires: 04/14/2023 Lipid panel Lab Routine Hypertension, essential Expected: 04/02/2023 (Approximate), Expires: 04/14/2023 CBC with auto differential Lab Routine Hypertension, essential Expected: 04/02/2023 (Approximate), Expires: 04/14/2023 Hemoglobin A1c Lab Routine Prediabetes Expected: 04/02/2023 (Approximate), Expires: 04/14/2023 CT Abdomen Pelvis W WO Contrast Imaging Schedule Routine, Read Routine (OP Routine) Chronic diarrhea Expected: 04/15/2022, Expires: 04/15/2023 documented as of this encounter Visit Diagnoses Diagnosis Hypertension, essential- Primary Unspecified essential hypertension Chronic diarrhea Diarrhea Prediabetes Other abnormal glucose documented in this encounter Care Teams Printing Machine Mechanic Relationship Specialty Start Date End Date Yudith Gusman MD [address] [facility] [address] [place] [address] PCP - General Family Medicine 04/14/22 01/24/23 documented as of this encounter
--- OUTSIDE RECORDS SUMMARY | 2024-10-15 16:35 | XMS_ITS | Encounter Summary ---
Author Organization [facility] Address [address] [place] [address] Phone Care Team Providers Care Technologist Infectious Disease Name Role Phone Sabrina Villaseñor PERSONNEL DIRECTOR Primary Care Provider [phone]- [phone] Encounter Details Date Type Department Care Team (Late st Contact Info) Description 04/14/2023 Telephone [facility] Otolaryngology [facility] Medical Office Building 4 [address] [place] [id number] Tish Dutta Au.D. 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 - 04/14/2023 10:06 AM CDT Patient's daughter, Agnes, called stating Mrs. Rea lost both hearing aids. The right aid was lost last week and the left was lost yesterday. The family has not had any luck finding either instrument but are going to continue to look. Agnes wanted to know the cost of replacing the instruments. The right aid has L/D coverage and the left L/D was used on 01/20/2021. The cost to replace the left aid is $1,800. $400 for L/D replacement fee for the right. $210 for 2 new slim tips (right and left). $80 for visit and $50 for reprogramming. The family will call if the aids are not found. documented in this encounter Plan of Treatment Not on file documented as of this encounter Visit Diagnoses Not on filedocumented in this encounter Care Teams Technologist Infectious Disease Relationship Specialty Start Date End Date Sabrina Villaseñor NP [place] [address] PCP - General Nurse Practitioner 01/25/23 documented as of this encounter
--- OUTSIDE RECORDS SUMMARY | 2024-10-15 16:35 | XMS_ITS | Encounter Summary ---
Author Organization [facility] Address [address] [place] [address] Care Team Providers Care Slat Grader Name Role Phone Yudith Gusman MD Primary Care Provide r Encounter Details Date Type Department Care Team (Late st Contact Info) Description 05/12/2022 Orders Only [facility] [place] [address] [facility] [address] [place] [address] Yudith Gusman MD [address] [place] [address] [address] [place] [address] Social History Tobacco Use Types Packs/Day Years [...] on file 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
--- OUTSIDE RECORDS SUMMARY | 2024-10-15 16:35 | XMS_ITS | Referral Summary ---
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 Gender Identity Not on file Sexual Orientation [...] 06/08/2022 1:25 PM CDT Plan of Treatment Not on file Insurance [employer] [facility] Member Subscriber Plan / Payer (Ef fective 2021-Present) Name:Kirsty Rea Relation to Subscriber:Self Name:Kirsty Rea Payer ID:[id number] ([facility]) Type:AETNA MEDICARE Address: [address] [place] [address] [employer] Advance Directives For more information, please contact: [phone] Documents on File Type Date Recorded Patient 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
--- OUTSIDE RECORDS SUMMARY | 2024-10-15 16:35 | XMS_ITS | Encounter Summary ---
Author Organization [facility] Address [address] [place] [address] Care Team Providers Care Receiving Coordinator Name Role Phone Yudith Gusman MD Primary Care Provide r Reason for Visit * Reason Comments Diarrhea Patient is in the of [facility] for Chronic diarrhea and abnormal CT scan. Patient states she has been having diarrhea for two years. Patient states she takes cholestyramine and states it is working. 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 Gender Identity Not on file Sexual Orientation Not on file documented as of this encounter Last Filed Vital Signs Vital Sign Reading Time Taken Comments Blood Pressure 140/74 06/08/2022 1:25 PM CDT Pulse 61 06/08/2022 1:25 PM CDT Temperature - - Respiratory Rate - - Oxygen Saturation 98% 06/08/2022 1:25 PM CDT Inhaled Oxygen Concentration - - Weight 74.5 kg (164 lb 3.2 oz) 06/08/2022 1:25 P M CDT Height 170.2 cm (5' 7 ) 06/08/2022 1:25 PM CDT Body Mass Index 25.72 06/08/2022 1:25 PM CDT documented in this encounter Progress Notes * Aj Desai MD - 06/08/2022 2:00 PM CDT Subjective/Objective Patient ID: Kirsty Rea is a 81 y.o. female. Chief Complaint Diarrhea (Patient is in the office for Chronic diarrhea and abnormal CT scan. Patient states she has been having diarrhea for two years. Patient states she takes cholestyramine and states it is working. Pt states ct scan showed wall thickining) Says D for the last 2 yrs but now uses questran once/week and has single formed bm daily without blood. She is a very confused lady but I cannot get any GI sx out of her at this time and the CT look ok. At 81 without sx/signs would not pursue invasive procedures at this time. Return prn Diarrhea Pertinent negatives include no abdominal pain, arthralgias, chest pain, fatigue, joint swelling, myalgias, nausea, rash, sore throat or vomiting. Review of Systems Constitutional: Negative for appetite change, fatigue and unexpected weight change. HENT: Negative for dental problem, sore throat and trouble swallowing. Eyes: Negative for photophobia. Respiratory: Negative for shortness of breath and wheezing. Cardiovascular: Negative for chest pain, palpitations and leg swelling. Gastrointestinal: Positive for diarrhea. Negative for abdominal pain, blood in stool, constipation,nausea, rectal pain and vomiting. Endocrine: Negative. Negative for polydipsia and polyphagia. Genitourinary: Negative for difficulty urinating. Musculoskeletal: Negative for arthralgias, back pain, gait problem, joint swelling and myalgias. Skin: Negative. Negative for pallor and rash. Allergic/Immunologic: Negative for food allergies and immunocompromised state. Neurological: Negative. Hematological: Negative. Psychiatric/Behavioral: Negative. Physical Exam Constitutional: Appearance: Normal appearance. She is well-developed. HENT: Nose: Nose normal. Eyes: General: Lids are normal. Conjunctiva/sclera: Conjunctivae normal. Neck: Thyroid: No thyroid mass or thyromegaly. Trachea: Trachea normal. Cardiovascular: Rate and Rhythm: Normal rate and regular rhythm. Pulses: Normal pulses. Pulmonary: Effort: Pulmonary effort is normal. Breath sounds: Normal breath sounds. Abdominal: General: Bowel sounds are normal. Palpations: Abdomen is soft. Skin: General: Skin is warm and dry. Neurological: Mental Status: She is alert and oriented to person, place, and time. Assessment/Plan Diagnoses and all orders for this visit: Chronic diarrhea (K52.9) (Primary) Assessment & Plan: Continue questran once/week and return prn documented in this encounter Miscellaneous Notes * Assessment & Plan Note - Aj Desai MD - 06/08/2022 1:34 PM CDT Associated Problem(s): Chronic diarrhea Continue questran once/week and return prn documented in this encounter Plan of Treatment Not on file documented as of this encounter Visit Diagnoses Diagnosis Chronic diarrhea- Primary Diarrhea documented in this encounter Historical Medications * This list may reflect changes made after this encounter. cholestyramine (QUESTRAN) 4 gram packet Take 1 packet by mouth 3 (three) times a day with meals naproxen sodium 220 mg capsule Take by mouth added in this encounter Care Teams Receiving Coordinator Relationship Specialty Start Date End Date Yudith Gusman MD [address] [facility] [place] [address] PCP - General Family Medicine 04/14/22 01/24/23 documented as of this encounter
--- OUTSIDE RECORDS SUMMARY | 2024-10-15 16:35 | XMS_ITS | Encounter Summary ---
Author Organization [facility] Address [address] [address] Care Team Providers Care Airplane Gas Tank Liner Assembler Name Role Phone Diana Mao MD Primary Care Provider [phone] Reason for Visit * Reason Comments Leg Length Discrepancy Pain Encounter Details Date Type Department Care Team (Latest Contact Info) Description 01/22/2021 11:30 AM CDT Office Visit [facility] Orthopedics and Sports Medicine [address] [place] [phone] Cherry De La Cruz PA [address] [place] [address] DR REYES [address] [place] [address] Primary osteoarthritis of right shoulder (Primary Dx); Leg length discrepancy Social History Tobacco Use Types Packs/Day Years Used Date Smoking Tobacco: Former Smokeless Tobacco: Never Alcohol Use Standard Drinks/Week Comments Yes 0 (1 standard drink = 0.6 oz pur e alcohol) Comments Unknown Sex and Gender Information Value Date Recorded Sex Assigned at Not on file 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 Gender Identity Not on file Sexual Orientation Not on file documented as of this encounter Last Filed Vital Signs Vital Sign Reading Time Taken Comments Blood Pressure 184/79 01/22/2021 11:24 AM CDT Pulse 62 01/22/2021 11:24 AM CDT Temperature 36.3 ??C (97.4 ??F) 01/22/2021 11:24 AM C DT Respiratory Rate - - Oxygen Saturation - - Inhaled Oxygen Concentration - - Weight 81.2 kg (179 lb) 01/22/2021 11:24 AM CDT Height 170.2 cm (5' 7 ) 01/22/2021 11:24 AM CDT Body Mass Index 28.04 01/22/2021 11:24 AM CDT documented in this encounter Progress Notes * Cherry De La Cruz PA - 01/22/2021 11:30 AM CDT Images from the original note were not included. FOLLOW UP VISIT Subjective CHIEF COMPLAINT She had concerns including Leg Length Discrepancy of the Left Leg and Pain of the Right Shoulder. HISTORY OF PRESENT ILLNESS Patient here for follow-up of her right shoulder osteoarthritis. She received a corticosteroid injection 12/18/2020. She thinks that this has helped a little, although she still has discomfort with activity. She reports she does not want to do, anything more about her shoulder. She has new concerns today about her bilateral lower extremities. She states her massage therapist told her she has one leg longer than the other. She denies any current pain. She reports that several months ago she had pain along the medial aspect of her left lower extremity. This was unprovoked, lasted a few months, then subsided. She denies any functional or ambulatory deficits MEDICATIONS She has a current medication list which includes the following prescription(s): hydrochlorothiazide, labetalol, nifedipine, and triamcinolone. REVIEW OF SYSTEMS Review of Systems Constitutional: Negative for chills, fatigue and fever. Eyes: Negative for pain and visual disturbance. Respiratory: Negative for chest tightness and shortness of breath. Cardiovascular: Negative for chest pain and leg swelling. Gastrointestinal: Negative for abdominal pain, constipation, diarrhea and vomiting. Genitourinary: Negative for dysuria, frequency and urgency. Musculoskeletal: Negative for myalgias. Skin: Negative for rash and wound. Neurological: Negative for dizziness, weakness and light-headedness. Hematological: Does not bruise/bleed easily. Psychiatric/Behavioral: Negative for confusion and hallucinations. Objective PHYSICAL EXAM BP (!) 184/79 Pulse 62 Temp 36.3 ??C (97.4 ??F) Ht 170.2 cm (5' 7 ) Wt 81.2 kg (179 lb) BMI 28.04 kg/m?? Spine Palpation Tenderness is: absent. Range of motion Hip range of motion is abnormal. No pain is reproduced with hip range of motion. The patient has reduced lumbar range of motion. The patient has no pain with lumbar range of motin. It is felt leg length discrepancy is secondary to pelvic rotation Right iliac crest sits higher than her left; slight lumbar scoliosis present Right shoulder Inspection Erythema: absent Edema: absent Effusion: absent Atrophy: present Surgical scar/wound: absent. Scapulothoracic motion: abnormal Posture, rounded shoulders: abnormal Palpation Tenderness is present. The patient has tenderness in the aneterior shoulder, lateral shoulder and posterior shoulder area(s). Range of motion The patient has reduced range of motion of the right shoulder. The patient has pain with range of motion of the right shoulder. Strength The patient does not have normal strength at baseline. Neurovascular The patient has normal vascular on the right side of her body. She has normal sensation on the right side of her body. Comments: Limited AROM to approximately 80-90 degrees active elevation Right hip Inspection Limp: slight Supportive device: none Limb length: shorter. Palpation Tenderness: absent. Range of motion The patient has reduced range of motion of the right hip. The patient does not have pain with range of motion of the right hip. Left hip Inspection Limp: slight Supportive device: none Limb length: longer. Palpation Tenderness: absent. Range of motion The patient has reduced range of motion of the left hip. The patient does not have pain with range of motion of the left hip. REVIEW OF X-RAYS/STUDIES/LABS Assessment/Plan Kirsty was seen today for leg length discrepancy and pain. Diagnoses and all orders for this visit: Primary osteoarthritis of right shoulder Leg length discrepancy PLAN We again reviewed that she has severe osteoarthritis of her right shoulder. If she had minimal relief with the corticosteroid injection, I would recommend we defer these in the future. I mention thatsurgical intervention was an option, however she is not interested. She will continue to observe the symptoms In terms of her leg-length discrepancy, my recommendation was to observe. She was interested in a lift for her shoe, however due to the fact that she is asymptomatic, I feel that risk outweighs benefit. I explained that this may cause other issues, such as pain. If she has worsening symptoms we will see her back prn. All questions were answered. Patient expressed full understanding and agreement of plan. Floor Associate completed by using Cloud[employer] Direct speaking software, therefore, transcriptionvariances may occur. ROBB Glass documented in this encounter Plan of Treatment Not on file documented as of this encounter Visit Diagnoses Diagnosis Primary osteoarthritis of right shoulder- Primary Leg length discrepancy Unequal leg length (acquired) documented in this encounter Discontinued Medications Medication Sig Discontinue Reason Start Date End Da te hydroCHLOROthiazide (HYDRODIURIL) 25 mg tablet daily 01/22/2021 documented as of this encounter Historical Medications * This list may reflect changes made after this encounter. hydroCHLOROthiazid e (HYDRODIURIL) 12.5 mg tablet 12/30/2020 triamcinolone (KENALOG) 0.1 % cream APPLY TO RASH ON BACK AND BODY TWICE A DAY NEEDED. AVOID FACE. 01/08/2021 added in this encounter Care Teams Airplane Gas Tank Liner Assembler Relationship Specialty Start Date End Date Diana Mao MD [address] [place] [address] PCP - General Geriatric Medicine 03/25/20 11/11/21 documented as of this encounter
--- OUTSIDE RECORDS SUMMARY | 2024-10-15 16:35 | XMS_ITS | Encounter Summary ---
Author Organization [facility] Address [address] [place] [address] Phone Care Team Providers Care School Business Manager Name Role Phone Diana Mao MD Primary Care Provider [phone] Encounter Details Date Type Department Care Team (Latest Contact Info) Description 05/25/2021 11:30 AM CDT Procedure visit [facility] Otolaryngology [address] [facility] Medical Office Building [address] [address] Tish Dutta Au.D. 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 - 05/25/2021 11:30 AM CDT Procedures Kirsty Rea [id number] 05/25/21 Scheduled Routine Check Patient reports no specific concerns regarding hearing aids at this time with the exception of having difficulty replacing cerustops in slim tips. Patient also reports aids do need to be put into the steerer by 9:30 pm. ASSESSMENT: Otoscopic examination revealed: EACs and tympanic membranes visualized bilaterally. Aid(s) cleaned and checked. Earmold(s) sanitized Listening check revealed: Aid(s) clear and no evidence of distortion or intermittent performance. VC and Program buttons functioning properly Electroacoustic analysis was performed and revealed: Benefit Authorizer Settings OSPL90 MTG EIN Right ALDANA-1 User 94.1 17.5 23.7 Left ALDANA-1 User 105.6 25.8 24.8 Hearing aid programming changes: No adjustments were made to the settings today Per data logging, aids are used 16 hours daily. Patient does use tv connector and informed her the more this is used the faster the battery will drain. Advised patient to put aids in the steerer whenresting during the day to get them to last a little longer if needed. Reviewed replacement of cerustops and patient had no difficulty in the office. PLAN/RECOMMENDATIONS: Hearing aid check in 6 months with a hearing test documented in this encounter Plan of Treatment Not on file documented as of this encounter Visit Diagnoses Diagnosis Sensorineural hearing loss (SNHL) of both ears- Primary documented in this encounter Care Teams School Business Manager Relationship Specialty Start Date End Date Diana Mao MD [address] [place] [address] PCP - General Geriatric Medicine 03/25/20 11/11/21 documented as of this encounter
--- OUTSIDE RECORDS SUMMARY | 2024-10-15 16:35 | XMS_ITS | Encounter Summary ---
Author Organization 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
--- OUTSIDE RECORDS SUMMARY | 2024-10-15 16:35 | XMS_ITS | Encounter Summary ---
Author Organization [facility] Address [address] [place] [address] Phone Care Team Providers Care Drug And Alcohol Treatment Specialist Name Role Phone Yudith Gusman MD Primary Care Provide r Encounter Details Date Type Department Care Team (Late st Contact Info) Description 01/07/2023 Documentation [facility] Otolaryngology [address] [facility] Office Building 4 [facility] [address] [place] [address] Tish Dutta Au.D. 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 KEPT OLD MOLD WELL.KAYKAY* OR JAVA ENGINEER documented in this encounter Plan of Treatment Not on file documented as of this encounter Visit Diagnoses Not on filedocumented in this encounter Care Teams Drug And Alcohol Treatment Specialist Relationship Specialty Start Date End Date Yudith Gusman MD [address] [facility] [address] REYES [address] [place] [address] PCP - General Family Medicine 04/14/22 01/24/23 documented as of this encounter
--- OUTSIDE RECORDS SUMMARY | 2024-10-15 16:35 | XMS_ITS | Encounter Summary ---
Author Organization [facility] Address [address] [place] [address] Phone Care Team Providers Care Smoking Pipe Mounter Name Role Phone Diana Mao MD Primary Care Provider Encounter Details Date Type Department Care Team (Late st Contact Info) Description 12/23/2020 Telephone [facility] Otolaryngology [facility] Medical Office Building [address] [address] Tish Dutta Au.D. 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 - 12/23/2020 12:47 PM CST Returned patient's call regarding lost hearing aid. The hearing aid has been found. Patient's son found it in the crack of a coffee table. Aids are paired to cell phone. While speaking to patient today, patient looked for lea. Patient does have the MyPhonak ela on the cell phone and will work with the Find My Hearing Aids option later on today. ESSORI PROGRAM DIRECTOR documented in this encounter Plan of Treatment Not on file documented as of this encounter Visit Diagnoses Not on filedocumented in this encounter Care Teams Smoking Pipe Mounter Relationship Specialty Start Date End Date Diana Mao MD [address] [place] [id number] PCP - General Geriatric Medicine 03/25/20 11/11/21 documented as of this encounter
--- OUTSIDE RECORDS SUMMARY | 2024-10-15 16:35 | XMS_ITS | Encounter Summary ---
Author Organization [facility] Address [address] [facility] [address] [place] [address] Care Team Providers Care Demurrage Man Name Role Phone Yudith Gusman MD Primary Care Provide r Reason for Visit * Reason Comments New Patient Encounter Details Date Type Department Care Team (Late st Contact Info) Description 04/14/2022 1:30 PM CDT Office Visit [facility] 2 [facility] [address] [place] [address] Yudith Gusman MD [address] [place] [address] [address] [place] [address] Primary hypertension (Primary Dx); BMI 25.0-25.9,adult; Chronic diarrhea; Encounter for wellness examination Social History Tobacco Use Types Packs/Day Years [...] on file 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 Gender Identity Not on file Sexual Orientation Not on file documented as of this encounter Last Filed Vital Signs Vital Sign Reading Time Taken Comments Blood Pressure 142/80 04/14/2022 1:27 PM CDT Pulse 67 04/14/2022 1:27 PM CDT Temperature - - Respiratory Rate 16 04/14/2022 1:27 PM CDT Oxygen Saturation - - Inhaled Oxygen Concentration - - Weight 73.9 kg (163 lb) 04/14/2022 1:27 PM CDT Height 170.2 cm (5' 7 ) 04/14/2022 1:27 PM CDT Body Mass Index 25.53 04/14/2022 1:27 PM CDT documented in this encounter Progress Notes * Yudith Gusman MD - 04/14/2022 1:30 PM CDT Images from the original note were not included. Subjective/Objective Patient ID: Kirsty Rea is a 81 y.o. female. Chief Complaint New Patient HPI 81F w/ hx of htn and morphea who is coming in for a wellness visit. She mentioned that for the past 2 years she has been having diarrhea. Non bloody, not black. Daily.Consistency of mud. Once a day. Not association with food. No abdominal pain. Nothing brings it on.The cholestyramine helps. She was going to Dr. Mao and they were in the process of working this up but she decided to switch providers. 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 She does not know what number that is. Past Medical History: Diagnosis Date ??? HX OTHER MEDICAL Scleroderma ??? HX OTHER MEDICAL Hearing Loss ??? HX OTHER MEDICAL Hyperparathyroidism ??? Hypertension Hypertension Allergies Allergen Reactions ??? Ramipril Other (See comments) Other reaction(s): Other (See Comments) Kidney Damage Kidney Damage Other reaction(s): Other (See Comments) Kidney Damage Kidney Damage Past Surgical History: Procedure Laterality Date ??? CATARACT EXTRACTION Cataract Surgery ??? OTHER SURGICAL HISTORY Anterior footplate fixation w /otosclerosis ??? PARATHYROIDECTOMY Parathyroidectomy Family History Problem Relation Age of Onset ??? Heart attack Mother Myocardial Infarction; Cause of : Myocardial Infarction ??? Hypertension Father Hypertension; ??? Hypertension Brother Hypertension; ??? Alcohol abuse Other ??? Heart disease Other Social History Socioeconomic History ??? Marital status: Spouse name: Not on file ??? Number of children: Not on file ??? Years of education: Not on file ??? Highest education level: Not on file Occupational History ??? Not on file Tobacco Use ??? Smoking status: Former Smoker ??? Smokeless tobacco: Never Used Substance and Sexual Activity ??? Alcohol use: Yes ??? Drug use: Never ??? Sexual activity: Not on file Other [...] Stability: Not on file Review of Systems Vitals: 04/14/22 1327 BP: 142/80 BP Location: Left arm Patient Position: Sitting Pulse: 67 Resp: 16 Weight: 73.9 kg (163 lb) Height: 170.2 cm (5' 7 ) No visits with results within 1 Month(s) from this visit. Latest known visit with results is: No results found for any previous visit. Physical Exam Assessment/Plan Diagnoses and all orders for this visit: Primary hypertension (Primary) Assessment & Plan: Bp in the office today BP Readings from Last 1 Encounters: 04/14/22 142/80 Continue current regimen of hctz 12.5mg daily, labetalol 200mg daily and nifedipine 90mg daily Recommend DASH diet, heart-healthy lifestyle, exercise. Discussed the risks of hypertension. F/u in 3 months BMI 25.0-25.9,adult Chronic diarrhea Assessment & Plan: Possibly IBS Will reorder labs from previous provider:FAT QUALITATIVE FECES RANDOM, LACTOFERRIN FECAL QUALITATIVE, OCCULT BLOOD FECES, OSMOLALITY FECES, CULTURE STOOL PANEL, HELICOBACTER PYLORI ANTIGEN FECES, PANCREATIC ELASTASE FECES Ct of the abdomen Referral to GI for further evaluation Encounter for wellness examination Assessment & Plan: Ordered CBC, cmp, lipid, hgb a1c Colonoscopy: referral to GI for diarrhea was given. They may do a colonoscopy. She was declined by her insurance in the past Mammo: referral placed. Instructed to reach out to insurance to see if they will cover it F/u in 1 year for annual Side effects, risks, interactions reviewed with patient. Indications for testing discussed. Any further problems to contact us. She was told what to look out for and verbalized understanding. The patient was given the opportunity to have all questions answered today and was in agreement with the plan of care. Yudith Gusman MD documented in this encounter Miscellaneous Notes * Assessment & Plan Note - Yudith Gusman MD - 04/14/2022 6:04 PM CDT Associated Problem(s): Encounter for wellness examination Ordered CBC, cmp, lipid, hgb a1c Colonoscopy: referral to GI for diarrhea was given. They may do a colonoscopy. She was declined by her insurance in the past Mammo: referral placed. Instructed to reach out to insurance to see if they will cover it F/u in 1 year for annual * Assessment & Plan Note - Yudith Gusman MD - 04/14/2022 6:02 PM CDT Associated Problem(s): Chronic diarrhea Possibly IBS Will reorder labs from previous provider:FAT QUALITATIVE FECES RANDOM, LACTOFERRIN FECAL QUALITATIVE, OCCULT BLOOD FECES, OSMOLALITY FECES, CULTURE STOOL PANEL, HELICOBACTER PYLORI ANTIGEN FECES, PANCREATIC ELASTASE FECES Ct of the abdomen Referral to GI for further evaluation * Assessment & Plan Note - Yudith Gusman MD - 04/14/2022 6:01 PM CDT Associated Problem(s): Hypertension Bp in the office today BP Readings from Last 1 Encounters: 04/14/22 142/80 Continue current regimen of hctz 12.5mg daily, labetalol 200mg daily and nifedipine 90mg daily Recommend DASH diet, heart-healthy lifestyle, exercise. Discussed the risks of hypertension. F/u in 3 months documented in this encounter Plan of Treatment Not on file documented as of this encounter Visit Diagnoses Diagnosis Primary hypertension- Primary Unspecified essential hypertension BMI 25.0-25.9,adult Chronic diarrhea Diarrhea Encounter for wellness examination documented in this encounter Historical Medications * This list may reflect changes made after this encounter. acetaminophen 500 mg capsule Take 500 mg by mouth every 4 (four) hours as needed added in this encounter Care Teams Demurrage Man Relationship Specialty Start Date End Date Yudith Gusman MD [address] [facility] [address] REYES [address] [place] [address] PCP - General Family Medicine 04/14/22 01/24/23 documented as of this encounter
--- OUTSIDE RECORDS SUMMARY | 2024-10-15 16:35 | XMS_ITS | Encounter Summary ---
Author Organization [facility] Address [address] [place] [address] Phone Care Team Providers Care Spudder Name Role Phone Sabrina Villaseñor CUT TOBACCO BULKER Primary Care Provider [phone] Encounter Details Date Type Department Care Team (Late st Contact Info) Description 05/06/2023 Telephone [facility] Otol[facility]ology [facility]4 [facility] Medical Office Building 4 [address] [place] [address] Tish Dutta Au.D. 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 - 05/06/2023 12:57 PM CDT Called Agnes to inform her the new aid for the left is a different color than the replaced right aid. The right aid is beige and the left is sand beige. She is okay with this. documented in this encounter Plan of Treatment Not on file documented as of this encounter Visit Diagnoses Not on filedocumented in this encounter Care Teams Spudder Relationship Specialty Start Date End Date Sabrina Villaseñor NP [address] [place] [address] PCP - General Nurse Practitioner 01/25/23 documented as of this encounter
--- OUTSIDE RECORDS SUMMARY | 2024-10-15 16:35 | XMS_ITS | Encounter Summary ---
Author Organization [facility] Address [address] [place] [address] Care Team Providers Care Front Desk Attendant Name Role Phone Yudith Gusman MD Primary Care Provide r Encounter Details Date Type Department Care Team (Late st Contact Info) Description 07/22/2022 Telephone [facility] Primary Care at [place] [address] [place] [address] Yudith Gusman MD [address] [place] [address] [address] [place] [address] Social History Tobacco Use Types Packs/Day Years [...] on file 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 adb * Telephone Encounter - Gunjan Hansen - 07/22/2022 1:09 PM CDT Appointment Cancellation Appt date/time: 07/22/22 Reason for appt: 3 mo fu htn Reason for cxl: pt not feeling well, will call back to r/s NOV: 04/18/23 JUNG: 04/14/22 # of cxl or no shows in last year: 3 Controlled Rx: 0 documented in this encounter Plan of Treatment Not on file documented as of this encounter Visit Diagnoses Not on filedocumented in this encounter Care Teams Front Desk Attendant Relationship Specialty Start Date End Date Yudith Gusman MD [address] [place] [address] DR REYES [address] [place] [address] PCP - General Family Medicine 04/14/22 01/24/23 documented as of this encounter
--- OUTSIDE RECORDS SUMMARY | 2024-10-15 16:36 | XMS_ITS | Encounter Summary ---
Author Organization [facility] Address [address] [place] [address] Phone Care Team Providers Care Inspector Glass Or Mirror Name Role Phone Diana Mao MD Primary Care Provider Encounter Details Date Type Department Care Team (Late st Contact Info) Description 08/06/2020 Telephone [facility] Otolaryngology [address] [facility] [address] [place] [phone] Tish Dutta Au.D. [address] [facility] 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 - 08/06/2020 1:36 PM CDT Patient still concerned with fit of left. Fell out when lying down. Scheduled for 08/12 and patient will keep that appointment and we will discuss a possible remake. documented in this encounter Plan of Treatment Not on file documented as of this encounter Visit Diagnoses Not on filedocumented in this encounter Care Teams Inspector Glass Or Mirror Relationship Specialty Start Date End Date Diana Mao MD [address] [place] [address] PCP - General Geriatric Medicine 03/25/20 11/11/21 documented as of this encounter
--- OUTSIDE RECORDS SUMMARY | 2024-10-15 16:36 | XMS_ITS | Encounter Summary ---
Author Organization [facility] Address [address] [place] [address] Phone Care Team Providers Care Gambling Box Person Name Role Phone Diana Mao MD Primary Care Provider Reason for Visit * Reason Comments Hearing Aid Fitting Encounter Details Date Type Department Care Team (Latest Contact Info) Description 06/25/2020 1:00 PM CDT Procedure visit [facility] Otolaryngology [address] [facility] Medical Office [address] [address] Supriya Ricardo Au.D. 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 - 06/25/2020 1:00 PM CDT Procedures Staci Burt CCC-A PATIENT: Kirsty Rea : 1940 TYPE OF SERVICE: Hearing Aid Fitting DATE OF SERVICE: 06/25/2020 PATIENT REPORTS: The patient arrived to be fit with bilateral Phonak [place] Audeo MR70T hearing aids with slim tips size 1 MR receivers. Patient's old hearing aid was placed in new hearing aid box and returned to patient TESTS PERFORMED: See: hearing aid requisition, hearing aid checklist, hearing aid programming, , real ear measures for nonlinear hearing aids, loudness judgments for 50, 65, and 80 dB SPL modulated speech shaped (DigiSpeech) signal TESTS PERFORMED PRIOR TO HEARING AID FITTING APPOINTMENT: Tested on Jane 8000 on: electroacoustic evaluation and axklh-ds-cupk ratio for directional microphones. ANSI-2009 reveals <10% THD. Printout placed in chart. Assessed performance of directional microphone by looking @ differences in the ptxru-ci-wmrh ratio using the Jane 8000 directional microphone testing protocol, printout placed in chart. ASSESSMENT: The patient was fit with bilateral hearing aids using real-ear insertion gain measures and loudnessjudgments with a 50, 65, and 80 dB SPL using a modulated speech shaped composite (DigiSpeech) signal. HEARING AID FITTING CHECKLIST Establish appropriate prescriptive REIG corrected for binaural summation (3-5 dB), and 16 channels summation. REM for nonlinear hearing aids with input levels of 50, 65 and 80 dB SPL with modulated speech-weighted noise that provides appropriate gain and a smooth frequency response. Printout placed in chart. Loudness judgment of 50 dB SPL modulated speech shaped composite noise is soft Loudness judgment of 65 dB SPL modulated speech shaped composite noise is comfortable but slightly loud (5) Loudness judgment of 80 dB SPL modulated speech shaped composite noise is ???loud, but OK.?? (6) Programmed settings are in the chart. Overall gain decreased one large step both aids all input levels after target was met. COSI aided with current hearing aids and placed in chart. Call patient 1 week post-initial fit. Patient was counseled on: Use/care of hearing aids Use/care of custom MABEL molds Insertion/removal of hearingaid Charging hearing aids streaming for telephone communication Management of cerumen, including changing wax guards Warranty for repair and loss 2 of years Loss of coverage co-pay Operation of: VC Turning aids on/off if needed Joe for hearing aids Patient provided: Chef spray Dry pod( didn't give patient instruction on replacement) TV connector Division policy: Return of hearing aids Annual evaluation Re-programming In-house repairs Patient signed [facility]/ FU AFTER WARRANTY HAS VISIT statement and the form was scanned to chart. Patient scheduled for Hearing Aid Assessment PLAN/RECOMMENDATIONS: Return in 3 weeks for HAA documented in this encounter Plan of Treatment Not on file documented as of this encounter Visit Diagnoses Diagnosis Mixed conductive and sensorineural hearing loss of left ear with restricted hearing of right ear- Primary documented in this encounter Care Teams Gambling Box Person Relationship Specialty Start Date End Date Diana Mao MD [address] [place] [address] PCP - General Geriatric Medicine 03/25/20 11/11/21 documented as of this encounter
--- OUTSIDE RECORDS SUMMARY | 2024-10-15 16:36 | XMS_ITS | Encounter Summary ---
Author Organization [facility] Address [address] [place] [address] Phone Care Team Providers Care Apartment Locator Name Role Phone Diana Mao MD Primary Care Provider [phone] Reason for Referral * Consultation - Closed Specialty Diagnoses / Procedures Referred By Abena torrez Referred To Contact Audiology Diagnoses Sensorineural hearing loss (SNHL) of both ears Diana Mao MD Phone: tel: fax: [facility] (All Locations) Referral ID Status Reason Start Date Expiration Date V isits Requested Visits Authorized [id number] Closed Specialty Services Required 09/16/2020 10/17/2021 1 1 Question Answer Please select the performing region: [facility] (All Locations) [[id number]] # of visits: 1 SFER STATION ATTENDANT Reason for Visit * Consultation - Closed Specialty Diagnoses / Procedures Referred By Abena torrez Referred To Contact Audiology Diagnoses Sensorineural hearing loss (SNHL) of both ears Diana Mao MD Phone: tel: fax: [facility] (All Locations) Referral ID Status Reason Start Date Expiration Date V isits Requested Visits Authorized [id number] Closed Specialty Services Required 09/16/2020 10/17/2021 1 1 Encounter Details Date Type Department Care Team (Latest Contact Info) Description 09/16/2020 2:30 PM TRANSFER STATION ATTENDANT Procedure visit [facility] Otolaryngology [address] [facility] [address] [place] [address] Tish Dutta Au.D. [address] 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 - 09/16/2020 2:30 PM CST Procedures Patient fit with new left slim tip. Did well with insertion after some practice. At patient's request, gain for television streamer ([employer]) was decreased. Gain in low frequencies decreased to target. Patient scheduled to follow up in six months for an HAC or sooner as needed. SFER STATION ATTENDANT documented in this encounter Miscellaneous Notes * Addendum Note - Catarina Downing - 09/16/2020 2:30 PM CSTAddended by: CATARINA DOWNING on: 09/17/2020 07:41 AM Modules accepted: Orders SFER STATION ATTENDANT documented in this encounter Plan of Treatment Scheduled Referrals Name Type Priority Associated Diagnoses Order Schedule Ambulatory referral to Audiology (ADULT) Outpatient Referral Routine Sensorineural hearing loss (SNHL) of both ears Expected: 10/01/2020 (Approximate), Expires: 09/17/2021 documented as of this encounter Visit Diagnoses Diagnosis Sensorineural hearing loss (SNHL) of both ears- Primary documented in this encounter Care Teams Apartment Locator Relationship Specialty Start Date End Date Diana Mao MD [address] [place] [address] PCP - General Geriatric Medicine 03/25/20 11/11/21 documented as of this encounter
--- OUTSIDE RECORDS SUMMARY | 2024-10-15 16:36 | XMS_ITS | Encounter Summary ---
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, including hip Social History Tobacco Use Types Packs/Day Years Used Date Smoking Tobacco: Never Comments Unknown Sex and Gender Information Value Date Recorded Sex Assigned at Not on file 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
--- OUTSIDE RECORDS SUMMARY | 2024-10-15 16:36 | XMS_ITS | Encounter Summary ---
Author Organization [facility] Care Team Providers Care Airborne Operations Superintendent Name Role Phone Unavailable Primary Care Provider Unavailabl e Encounter Details Date Type Department Care Team (Late st Contact Info) Description 05/02/2016 7:10 PM CDT - 05/02/2016 9:35 PM CDT Hospital Encounter [facility] Saurabh Rodriguez MD [address] [facility] [place] [address] Cellulitis of trunk Social History Tobacco Use Types Packs/Day Years Used Date Smoking Tobacco: Never Comments Unknown Sex and Gender Information Value Date Recorded Sex Assigned at Not on file 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
--- OUTSIDE RECORDS SUMMARY | 2024-10-15 16:36 | XMS_ITS | Encounter Summary ---
Author Organization [facility] Address [address] [place] [address] Phone Care Team Providers Care Wire Brush Maker Name Role Phone Diana Mao MD Primary Care Provider Encounter Details Date Type Department Care Team (Latest Contact Info) Description 07/15/2020 1:00 PM CDT Procedure visit [facility] Otolaryngology [address] [facility] Medical Office Building [address] [address] Tish Dutta Au.D. 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 - 07/15/2020 1:00 PM CDT Procedures Initial follow up to fitting of new Phonak Audeo M70-RT aids with slim tips. 1.Patient concerned left slim tip is walking out. 2.Please with sound quality. 3.Hearing television well but unsure actually hearing through streamer 4.Hearing cell phone well but unaware of answering calls with aids. 1. Aids not inserted properly on either ear. Worked with patient and instructed on how to insert aids further into canal. Patient did well with practice and noticed a big difference in comfort and sound quality when shells inserted properly. 2. No adjustments made to settings today 3. Patient will check out if streamer is working and then call if assistance is needed or bring streamer to next appointment 4. Instructed patient on how to push button on right aid when phone rings. Signal strength of phoneprevented practice in office but patient will practice at home 5. Provided patient with cheat sheet for aid and button functions 6. Instructed on use of Aud Choice spray (patient has spray but has not used it), use of pipe clearner type cleaning tool to clean inside of shell, and replacement of cerustops. Patient will follow up in 4 weeks for HAC and we will address phone and television if needed. documented in this encounter Plan of Treatment Not on file documented as of this encounter Visit Diagnoses Diagnosis Sensorineural hearing loss (SNHL) of both ears- Primary documented in this encounter Care Teams Wire Brush Maker Relationship Specialty Start Date End Date Diana Mao MD [address] [place] [address] PCP - General Geriatric Medicine 03/25/20 11/11/21 documented as of this encounter
--- OUTSIDE RECORDS SUMMARY | 2024-10-15 16:36 | XMS_ITS | Encounter Summary ---
Author Organization [facility] Address [address] [place] [address] Phone Care Team Providers Care Security Lead Name Role Phone Diana Mao MD Primary Care Provider Encounter Details Date Type Department Care Team (Latest Contact Info) Description 11/06/2020 10:00 AM CEMENT MASON Procedure visit [facility] Otolaryngology [address] [facility] Medical Office Building [address] [address] Tish Dutta Au.D. [address] [place] [id number] Sensorineural hearing loss (SNHL) of both ears (Primary Dx) Social History Tobacco Use Types Packs/Day Years Used Date Smoking Tobacco: Never Comments Unknown Sex and Gender Information Value Date Recorded Sex Assigned at Not on file Legal Sex Female 3:00 AM CEMENT MASON Gender Identity Not on file Sexual Orientation Not on file documented as of this encounter Procedure Notes * Tish Dutta Au.D. - 11/06/2020 10:00 AM CST Procedures Patient frustrated with aids not connecting to TV connector since power outage the other day. Aids also not pairing to phone when patient came into the office today. Re-paired aids to phone and checked aids are paired to TV connector. Patient will try this at home and follow up if difficulty continues. NT MASON documented in this encounter Plan of Treatment Not on file documented as of this encounter Visit Diagnoses Diagnosis Sensorineural hearing loss (SNHL) of both ears- Primary documented in this encounter Care Teams Security Lead Relationship Specialty Start Date End Date Diana Mao MD [address] [place] [address] PCP - General Geriatric Medicine 03/25/20 11/11/21 documented as of this encounter
--- OUTSIDE RECORDS SUMMARY | 2024-10-15 16:36 | XMS_ITS | Encounter Summary ---
Author Organization [facility] Address [address] [place] [address] Phone Care Team Providers Care Cut Off Sawyer Shingle Mill Name Role Phone Diana Mao MD Primary Care Provider Encounter Details Date Type Department Care Team (Latest Contact Info) Description 08/28/2020 11:30 AM CDT Procedure visit [facility] Otolaryngology [address] [facility] Medical Office Building [address] [address] Tish Dutta Au.D. [address] [place] [phone] Sensorineural hearing loss (SNHL) of both ears (Primary Dx) Social History Tobacco Use Types Packs/Day Years Used Date Smoking Tobacco: Never Comments Unknown Sex and Gender Information Value Date Recorded Sex Assigned at Not on file Legal Sex Female 3:00 AM MANAGER BUSINESS PROCESS Gender Identity Not on file Sexual Orientation Not on file documented as of this encounter Procedure Notes * Tish Dutta Au.D. - 08/28/2020 11:30 AM CDT Procedures Follow up. Left slim tip continues to be a problem. Slim tip does not stay in. Left silicone ear mold impression taken without incident. Slim tip sent to [employer] for remake. Patient will use aid with a dome but may not wear left aid if concerned with loss. Patient very much likes using the TV Connector but unable to hear others when watching television. Sensitivity of flor was changed from -6 to 0. HAC scheduled for 09/16/2020 to continuous pickling line pickler remade slim tip GER BUSINESS PROCESS documented in this encounter Plan of Treatment Not on file documented as of this encounter Visit Diagnoses Diagnosis Sensorineural hearing loss (SNHL) of both ears- Primary documented in this encounter Care Teams Cut Off Sawyer Shingle Mill Relationship Specialty Start Date End Date Diana Mao MD [address] [place] [address] PCP - General Geriatric Medicine 03/25/20 11/11/21 documented as of this encounter
--- OUTSIDE RECORDS SUMMARY | 2024-10-15 16:36 | XMS_ITS | Encounter Summary ---
Author Organization [facility] Address [address] [place] [address] Care Team Providers Care General Lot Attendant Name Role Phone Unavailable Primary Care Provider Unavailabl e Encounter Details Date Type Department Care Team (Latest Contact Info) Description 12/13/2016 9:17 AM PROPERTY TECHNICIAN - 12/13/2016 11:59 PM PROPERTY TECHNICIAN Hospital Encounter [facility] [phone] Dav Mai MD [address] [address] Discharge Disposition: Discharge to home or self care Social History Tobacco Use Types Packs/Day Years Used Date Smoking Tobacco: Never Comments Unknown Sex and Gender Information Value Date Recorded Sex Assigned at Not on file Legal Sex Female 3:00 AM PROPERTY TECHNICIAN Gender Identity Not on file Sexual Orientation Not on file documented as of this encounter Discharge Disposition Disposition Code Departure Means Destination Discharge to home or self care documented in this encounter Plan of Treatment Not on file documented as of this encounter Visit Diagnoses Not on filedocumented in this encounter
--- OUTSIDE RECORDS SUMMARY | 2024-10-15 16:36 | XMS_ITS | Encounter Summary ---
Author Organization [facility] Address [address] [address] Care Team Providers Care Bath Steward/Stewardess Name Role Phone Diana Mao MD Primary Care Provider [phone] Reason for Referral * Procedure (Routine) - Closed Specialty Diagnoses / Procedures Referred By Contac t Referred To Contact Diagnoses Primary osteoarthritis of right shoulder Procedures Large Joint (Hip, Knee, Shoulder) Injection: R glenohumeral Cherry De La Cruz PA Phone: tel: fax: [facility] Referral ID Status Reason Start Date Expiration Date Visits Re quested Visits Authorized [id number] Closed 12/22/2020 01/21/2022 1 1 ERADISH GRINDER * Diagnostic Imaging (Routine) - Closed Specialty Diagnoses / Procedures Referred By Contac t Referred To Contact Diagnoses Right shoulder pain, unspecified chronicity Procedures XR Shoulder Right 2 or More Views Cherry De La Cruz PA Phone: tel: fax: [facility] Referral ID Status Reason Start Date Expiration Date Visits Re quested Visits Authorized [id number] Closed 12/18/2020 01/17/2022 1 1 ERADISH GRINDER Reason for Visit * Reason Comments Pain Encounter Details Date Type Department Care Team (Latest Contact Info) Description 12/18/2020 9:30 AM HORSERADISH GRINDER Office Visit [facility] Orthopedics and Sports Medicine [address] [place] [phone] Cherry De La Cruz PA [address] [place] [address] [place] [address] Primary osteoarthritis of right shoulder (Primary Dx) Social History Tobacco Use Types Packs/Day Years Used Date Smoking Tobacco: Former Smokeless Tobacco: Never Alcohol Use Standard Drinks/Week Comments Yes 0 (1 standard drink = 0.6 oz pur e alcohol) Comments Unknown Sex and Gender Information Value Date Recorded Sex Assigned at Not on file Legal Sex Female 3:00 AM HORSERADISH GRINDER Gender Identity Not on file Sexual Orientation Not on file documented as of this encounter Last Filed Vital Signs Vital Sign Reading Time Taken Comments Blood Pressure 144/78 12/18/2020 9:50 AM HORSERADISH GRINDER Pulse 59 12/18/2020 9:50 AM HORSERADISH GRINDER Temperature 36.2 ??C (97.2 ??F) 12/18/2020 9:50 AM CS T Respiratory Rate - - Oxygen Saturation - - Inhaled Oxygen Concentration - - Weight 81.9 kg (180 lb 9.6 oz) 12/18/2020 9:50 A M HORSERADISH GRINDER Height 172.7 cm (5' 8 ) 12/18/2020 9:50 AM HORSERADISH GRINDER Body Mass Index 27.46 12/18/2020 9:50 AM HORSERADISH GRINDER documented in this encounter Progress Notes * Cherry De La Cruz PA - 12/18/2020 9:30 AM CSTAssociated Order(s): Large Joint (Hip, Knee, Shoulder) Injection: R glenohumeral Post-Procedure Diagnose(s): Primary osteoarthritis of right shoulder Images from the original note were not included. NEW PATIENT VISIT Subjective CHIEF COMPLAINT She had concerns including Pain of the Right Shoulder. HISTORY OF PRESENT ILLINESS Pt here with complaitns of right shoulder pain. 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 She recently tried some chiropractic treatment for this, which helped initially. She has since has worsening symptoms radiating down into right upper arm. She currently has very limited movement. Shedescribes a moderate, aching pain. She will take tylenol prn. She has a history of Morphea. Pain Assessment Pain Assessment: 0-10 Pain Score: 7 Pain Location: Shoulder Pain Orientation: Right Pain Descriptors: Aching Pain Frequency: With movement/cough PAST MEDICAL HISTORY She has a past medical history of OTHER MEDICAL, OTHER MEDICAL, OTHER MEDICAL, and Hypertension. PAST SURGICAL HISTORY She has a past surgical history that includes Parathyroidectomy; Cataract Extraction; and Other surgical history. MEDICATIONS She has a current medication list which includes the following prescription(s): hydrochlorothiazide, labetalol, and nifedipine. ALLERGIES She has No Known Allergies. SOCIAL HISTORY She reports that she has quit smoking. She has never used smokeless tobacco. She reports current alcohol use. She reports that she does not use drugs. FAMILY HISTORY Family History Problem Relation Age of Onset ??? Heart attack Mother Myocardial Infarction; Cause of : Myocardial Infarction ??? Hypertension Father Hypertension; ??? Hypertension Brother Hypertension; ??? Alcohol abuse Other ??? Heart disease Other REVIEW OF SYSTEMS Review of Systems Constitutional: [...] confusion and hallucinations. Objective PHYSICAL EXAM BP 144/78 Pulse 59 Temp 36.2 ??C (97.2 ??F) Ht 172.7 cm (5' 8 ) Wt 81.9 kg (180 lb 9.6 oz) BMI 27.46 kg/m?? Right shoulder Inspection Erythema: absent Edema: absent [...] of motion of the right shoulder. Strength Deltoid: 4/5 Bicep: 4/5 Neurovascular The patient has normal vascular on the right side of her body. She has normal sensation on the right side of her body. Comments: Limited AROM to approximately 80-90 degrees active elevation Left shoulder The patient has normal inspection, palpation, range of motion, strength, and stability of the left shoulder. REVIEW OF X-RAYS/STUDIES/LABS XR Shoulder Right 2 or More Views X-rays of the right shoulder are viewed and interpreted in clinic today. These demonstrate no fracture subluxation or destructive lesions. AC joint DJD changes present with . Glenohumeral arthritic change present with joint space narrowing and osteophyte formation. Assessment/Plan Kirsty was seen today for pain. Diagnoses and all orders for this visit: Primary osteoarthritis of right shoulder - XR Shoulder Right 2 or More Views Other orders - Large Joint (Hip, Knee, Shoulder) Injection Large Joint (Hip, Knee, Shoulder) Injection: R glenohumeral Performed by: Cherry De La Cruz PA Authorized by: Cherry De La Cruz PA Large Joint Injection/Aspiration: Consent Given by: Patient Site marked: the procedure site was marked Timeout: prior to procedure the correct patient, procedure, and site was verified Verbal consent obtained: Yes Supporting Documentation: Indications: Pain Procedure Details: Location: Shoulder Site: R glenohumeral Prep: patient was prepped and draped in usual sterile fashion Needle Size: 22 G Approach: Posterior Medications: 3 mL lidocaine 20 mg/mL (2 %); 80 mg methylPREDNISolone acetate 80 mg/mL Patient tolerance: Patient tolerated the procedure well with no immediate complications Plan We discussed reviewed her images today and reviewed conservative versus surgical management of her right shoulder OA. Patient elected to proceed with conservative treatment today consisting of steroid injection. She tolerated well and post injection instructionis provided Further conservative measures including ice/heat, avoidance of aggravating activities, OTC NSAIDs/analgesics p.r.n. (if able to take), OTC analgesic creams reviewed with her today. If She fails conservative treatment, he may be a candidate for RTSA. She may see me back prn for continued conservative treatment. All questions were answered. Patient expressed full understanding and agreement of plan. ROBB Glass ERADISH GRINDER documented in this encounter Plan of Treatment Not on file documented as of this encounter Procedures Procedure Name Priority Date/Time Associated Diagnosis Comments XR SHOULDER RIGHT 2 OR MORE VIEWS Schedule Routine, Read Routine (OP Routine) 12/22/2020 8:17 AM HORSERADISH GRINDER Primary osteoarthritis of right shoulder SD ARTHROCENTESIS ASPIR&/INJ MAJOR JT/BURSA W/O US Routine 12/18/2020 9:30 AM HORSERADISH GRINDER Primary osteoarthritis of right shoulder documented in this encounter Results * XR Shoulder Right 2 or More Views (12/22/2020 8:17 AM HORSERADISH GRINDER) Anatomical Region Laterality Modality Upper Extremities, Shoulder Right Radi ographic Imaging Narrative 12/22/2020 8:17 AM HORSERADISH GRINDER X-rays of the right shoulder are viewed and interpreted in clinic today. ?? These demonstrate no fracture subluxation or destructive lesions. ??AC joint DJD changes present with . ??Glenohumeral arthritic change present with joint space narrowing and osteophyte formation. ?? Cherry ZAMUDIO IMG XR PROCEDURES Final Result * SD ARTHROCENTESIS ASPIR&/INJ MAJOR JT/BURSA W/O US (12/18/2020 9:30 AM HORSERADISH GRINDER) Narrative Cherry De La Cruz PA - 12/18/2020 9:30 AM HORSERADISH GRINDER Cherry De La Cruz PA ? 12/22/2020 ??8:20 AM Large Joint (Hip, Knee, Shoulder) Injection: R glenohumeral Performed by: Cherry De La Cruz PA Authorized by: Cherry De La Cruz PA Large Joint Injection/Aspiration: ??Consent Given by: ??Patient ??Site marked: the procedure site was marked ?Timeout: prior to procedure the correct patient, procedure, and site was verified ?Verbal consent obtained: Yes ?? Supporting Documentation: ??Indications: ??Pain Procedure Details: ??Location: ??Shoulder ??Site: ??R glenohumeral ??Prep: patient was prepped and draped in usual sterile fashion ?Needle Size: ??22 G ??Approach: ??Posterior ??Medications: ??3 mL lidocaine 20 mg/mL (2 %); 80 mg methylPREDNISolone acetate 80 mg/mL ??Patient tolerance: ??Patient tolerated the procedure well with no immediate complications Cherry ZAMUDIO IN CLINIC/BEDSIDE ORDER JULISSA Final Result documented in this encounter Visit Diagnoses Diagnosis Primary osteoarthritis of right shoulder- Primary documented in this encounter Administered Medications Inactive Administered Medications - up to 3 most recent administrations Medication Order MAR Action Action Date Dose Rate Site lidocaine (XYLOCAINE) 20 mg/mL (2 %) injection 3 mL 3 mL, One-Time Injection, Starting on Tue12/22/20 at 0819, For 1 dose, Indications: Administration of Local AnesthesiaIndications:Administratio n of Local Anesthesia Given 12/22/2020 8:19 AM HORSERADISH GRINDER 3 mL methylPREDNISolone acetate (DEPO-medrol) injection 80 mg 80 mg, intra-articular, One-Time Injection, Starting on Tue12/22/20 at 0819, For 1 doseIndications:Primary osteoarthritis of right shoulder Given 12/22/2020 8:19 AM HORSERADISH GRINDER 80 mg documented in this encounter Historical Medications * This list may reflect changes made after this encounter. labetaloL (NORMODYNE,TRANDA TE) 200 mg tablet 11/04/2020 NIFEdipine (PROCARDIA XL/ADALAT CC) 90 mg 24 hr tablet Take 90 mg by mouth 11/27/2019 hydroCHLOROthiazi de (HYDRODIURIL) 25 mg tablet daily 01/22/2021 added in this encounter Care Teams Bath Steward/Stewardess Relationship Specialty Start Date End Date Diana Mao MD [address] [place] [address] PCP - General Geriatric Medicine 03/25/20 11/11/21 documented as of this encounter
--- OUTSIDE RECORDS SUMMARY | 2024-10-15 16:36 | XMS_ITS | Encounter Summary ---
Author Organization [facility] Address [address] [place] [address] Phone Care Team Providers Care Rail Car Repairman Name Role Phone Diana Mao MD Primary Care Provider [phone] Reason for Visit * Reason Comments Audiometric Evaluation Hearing Aid Evaluation * (Routine) - Closed Specialty Diagnoses / Procedures Referred By Abena torrez Referred To Contact Diagnoses Sensorineural hearing loss (SNHL) of both ears Procedures Audiogram Diana Mao MD Phone: tel: fax: [facility] (All Locations) Referral ID Status Reason Start Date Expiration Date Visits Re quested Visits Authorized [id number] Closed 03/25/2020 10/04/2021 1 1 Encounter Details Date Type Department Care Team (Latest Contact Info) Description 05/14/2020 1:00 PM CDT Procedure visit [facility] Otolaryngology [facility] Medical Office Building [address] [place] [phone] Supriya Ricardo Au.D. 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 - 05/14/2020 1:00 PM CDT Procedures AuD. Javed, [facility] PATIENT: Kirsty Rea : 1940 TYPE OF SERVICE: Audiologic Evaluation DATE OF SERVICE: 05/14/20 Referral Source: Diana Mao MD PATIENT REPORTS: Long standing history of hearing loss Initial hearing examination Bilateral [employer] hearing aids - lost left one and needs new hearing aids History of stapes surgery left ear - unsuccessful - many years ago Familial history of hearing loss Denied history of noise exposure, ototoxic treatments, dizziness, tinnitus, aural fullness and otalgia TESTS PERFORMED: See: comprehensive audiometry ASSESSMENT: Otoscopy: Unremarkable and TM visualized both ears - some cerumen each ear Pure tone audiometry was performed and revealed: R ear - Mild to moderately severe sensorineural hearing loss L ear - Moderate to severe mixed hearing loss Speech recognition thresholds test was performed and revealed: Right: moderate loss in the ability to receive speech Left: moderate severe loss in the ability to receive speech Word recognition testing was performed at [facility] using recorded version of NU-6 lists of a female speaker: Right: slight difficulty in the ability to recognize speech. Left: moderate difficulty in the ability to recognize speech. DNT immittance The results were reviewed with the patient and any questions were answered. HEARING AID EVALUATION: PATIENT REPORTS: The patient reports difficulty hearing family members, television, female voices, male voices, children's voices, in background noise, on the telephone and at sabianist service TESTS PERFORMED: See: COSI ASSESSMENT: The patient was counseled on: ??? Her audiometric results ??? The importance of binaural amplification for hearing in background noise, localization, and forfeeling balanced. ??? Different styles of hearing aids, particularly [id number] canal and in-the-ear style hearing aid(s) - Prefers MABEL style ??? Different features of hearing aids, such as a volume control, program button, remote control, directional microphones, rechargeable, Etc. ??? Options for wireless connectivity, such as to the television, remote microphone and telephone, interested in tv device - may purchase with level 3 hearing aids. Has iPHone ??? Differences between the levels of technology, such as bands and channels, automatic features, etc. ??? Different ways to couple the hearing aid(s) to the ear, such as a custom mold ??? The patient was provided with the [facility] hearing aid information packet and brochures on hearing aids discussed today ??? Loss and damage and repair warranties ??? [facility]???s policy on insurance reimbursement ??? [facility]???s policy on hearing aid checks and programming of hearing aids ??? Provided information on the [employer] [place] Card program ??? The trial period and the restocking fee of $150/hearing aid if the hearing aids are returned Patient would like to think about which hearing aids and was provided brochures for Phonak, Resound, Chary and Widex. Patient will call with decision - is also considering tar leveler and understands earmolds are $204with tar leveler and the aids only come in beige color. In addition, all services and accessories are an extra charge. A bilateral silicone earmold impression(s) were made without incidence. The size for the receivers was measured and was determined to be a size 2 bilateral - using Resoundguide. Patient was informed fitting would not be until May or later depending on when she is ready to proceed. Impressions were stored in hearing aid cabinet. PLAN/RECOMMENDATIONS: As per Diana Mao MD Retest PRN Patient to call when ready to proceed with selection of level of technology and color Hearing assistive technology Hearing protection in noise documented in this encounter Plan of Treatment Not on file documented as of this encounter Procedures Procedure Name Priority Date/Time Associated Diagnosis Comments AUDBASE RESULTS 05/14/2020 documented in this encounter Results * AUDBASE RESULTS (05/14/2020) Provider Scanning AUDIOLOGY SERVICES ORDERABLES Final Result documented in this encounter Visit Diagnoses Diagnosis Mixed conductive and sensorineural hearing loss of left ear with restricted hearing of right ear- Primary Sensorineural hearing loss (SNHL) of both ears documented in this encounter Orders Audiology Count Last Ordered Date First Orde red Date AUDIOGRAM 1 05/14/2020 documented in this encounter Care Teams Rail Car Repairman Relationship Specialty Start Date End Date Diana Mao MD [address] [place] [address] PCP - General Geriatric Medicine 03/25/20 11/11/21 documented as of this encounter
--- OUTSIDE RECORDS SUMMARY | 2024-10-15 16:36 | XMS_ITS | Encounter Summary ---
Author Organization [facility] Address [address] [place] [address] Phone Care Team Providers Care Frame Straightener Name Role Phone Diana Mao MD Primary Care Provider Encounter Details Date Type Department Care Team (Late st Contact Info) Description 11/25/2020 Telephone [facility] Otolaryngology [facility] Medical Office Building [address] [phone] Tish Dutta Au.D. [address] [address] Social History Tobacco Use Types Packs/Day Years Used Date Smoking Tobacco: Never Comments Unknown Sex and Gender Information Value Date Recorded Sex Assigned at Not on file Legal Sex Female 3:00 AM STAFF FIELD ENGINEER Gender Identity Not on file Sexual Orientation Not on file documented as of this encounter Miscellaneous Notes * Telephone Encounter - Tish Dutta Au.D. - 11/25/2020 8:37 AM CST Returned patient's call regarding message left last week that bluetooth stopped again with TV Streamer. Patient stated the streaming suddenly started up again and has been working for the past few days. Patient will follow up as scheduled or sooner if needed. F FIELD ENGINEER documented in this encounter Plan of Treatment Not on file documented as of this encounter Visit Diagnoses Not on filedocumented in this encounter Care Teams Frame Straightener Relationship Specialty Start Date End Date Diana Mao MD DOOR [address] [place] [address] PCP - General Geriatric Medicine 03/25/20 11/11/21 documented as of this encounter
--- OUTSIDE RECORDS SUMMARY | 2024-10-15 16:36 | XMS_ITS | Encounter Summary ---
Author Organization [facility] Care Team Providers Care Fundraising Manager Name Role Phone Unavailable Primary Care Provider Unavailabl e Encounter Details Date Type Department Care Team (Late st Contact Info) Description 04/07/2011 - 04/07/2011 11:59 PM CDT Hospital Encounter [facility] Rebeca Lovelace MD [address] [address] Other dyspnea and respiratory abnormality; Disease of tricuspid valve Social History Tobacco Use Types Packs/Day Years Used Date Smoking Tobacco: Never Assessed Comments Unknown Sex and Gender Information Value Date Recorded Sex Assigned at Not on file Legal Sex Female 3:00 AM MANAGER OF ALLIED HEALTH SERVICES Gender Identity Not on file Sexual Orientation Not on file documented as of this encounter Plan of Treatment Not on file documented as of this encounter Visit Diagnoses Diagnosis Other dyspnea and respiratory abnormality 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
--- OUTSIDE RECORDS SUMMARY | 2024-10-15 16:36 | XMS_ITS | Encounter Summary ---
Author Organization [facility] Care Team Providers Care Retail Route Supervisor Name Role Phone Unavailable Primary Care Provider Unavailabl e Encounter Details Date Type Department Care Team (Late st Contact Info) Description 11/30/2007 - 11/30/2007 11:59 PM WEAVE ROOM SUPERVISOR Hospital [facility] [place] [place] [address] [place] [address] Circumscribed scleroderma Social History Tobacco Use Types Packs/Day Years Used Date Smoking Tobacco: Never Assessed Comments Unknown Sex and Gender Information Value Date Recorded Sex Assigned at Not on file Legal Sex Female 3:00 AM WEAVE ROOM SUPERVISOR Gender Identity Not on file Sexual Orientation Not on file documented as of this encounter Plan of Treatment Not on file documented as of this encounter Visit Diagnoses Diagnosis Circumscribed scleroderma documented in this encounter
--- OUTSIDE RECORDS SUMMARY | 2024-10-15 16:37 | XMS_ITS | Clinical Summary ---
Author Organization [facility] Address [address] [place] [phone] Phone Care Team Providers [facility] Sales Name Role Phone Diana Mao MD Primary Care Provider Unavail able Allergies Active Allergy Reactions Criticality Noted Date Comments Ramipril Other (see comments) Low 05/18/2017 Other reaction(s): Other (See Comments) Kidney Damage Kidney Damage Medications Medication Sig Dispensed Refills Start Date End Date Status potassium chloride (K-TAB) 20 MEQ CR tablet 1 QD 3 06/16/2017 Active Multiple Vitamin (MULTIVITAMIN) capsule 1 po qd 0 11/29/2016 Active aspirin (ST ZENIA) 81 MG EC tablet bid 0 11/29/2016 Active tacrolimus (PROTOPIC) 0.1 % ointment Apply topically 2 times daily 12/05/2012 Active triamcinolone (KENALOG) 0.1 % cream APPLY TO RASH ON BACK AND BODY TWICE A DAY NEEDED. AVOID FACE. 01/08/2021 Active cetirizine (ZyrTEC) 10 MG tablet Take 10 mg by mouth 1 (one) time each day if needed 10/17/2021 Active oxybutynin (DITROPAN) 5 MG tablet Take 5 mg by mouth 1 (one) time each day 11/13/2021 Active cholestyramine (QUESTRAN) 4 g packet Take 1 packet by mouth 3 times daily Active Lifitegrast (Xiidra) 5 % solution 03/02/2022 Active cycloSPORINE (Restasis) 0.05 % ophthalmic emulsion 03/02/2022 Activ e Naproxen Sodium 220 MG capsule Take by mouth Active olopatadine (PATADAY) 0.2 % ophthalmic solution Administer 1 drop into affected eye(s) daily 12/28/2021 Active omega-3 (FISH OIL) 1200 MG capsule Take by mouth Active NIFEdipine CC (ADALAT CC) 90 MG 24 hr tablet TAKE 1 TABLET ONE TIME EACH DAY 90 tablet 3 07/01/2022 Active hydroCHLOROthiazide (MICROZIDE) 12.5 MG capsule Take 1 capsule (12.5 mg total) by mouth 1 (one) time each day 90 capsule 3 07/01/2022 Active labetalol (NORMODYNE) 200 MG tablet Take 1 tablet (200 mg total) by mouth 2 (two) times a day 180 tablet 3 07/01/2022 Active Active Problems Problem Noted Date Diagnosed Date Chronic diarrhea 04/14/2022 Overview (06/30/2022): Last Assessment & Plan: Continue questran once/week and return prn Mixed conductive and sensorineural hearing loss 05/14/2020 Contact dermatitis 04/06/2019 Cervicalgia 04/06/2019 Collagen disease 04/06/2019 Disturbance of skin sensation 04/06/2019 Dizziness and giddiness 04/06/2019 Generalized muscle weakness 04/06/2019 Hypertrophy of breast 04/06/2019 Malaise and fatigue 04/06/2019 Shoulder joint pain 04/06/2019 Neuroma of foot 09/08/2018 Other proteinuria 01/10/2018 Adverse effect of carbonic-a nhydrase inhibitors, benzothiadiazides and other diuretics 05/18/2017 Hearing loss 05/18/2017 Hypokalemia 05/18/2017 Other specified disorders of bone density and structure, unspecified site 05/18/2017 Essential (primary) hypertension 11/29/2016 Localized edema 11/29/2016 Chronic kidney disease, stage 2 (mild) 7 Localized scleroderma (morphea) 11/29/2016 Chronic kidney disease, stage 3 (moderate) 04/18 Acute kidney failure 07/14/2015 Chronic kidney disease 07/13/2015 Hypertensive chronic kidney disease with stage 1 through stage 4 chronic kidney disease, or unspecified chronic kidney disease 07/13/2015 Other amnesia 06/20/2014 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 06/23/2010 Mixed hyperlipidemia 06/23/2010 Senile osteoporosis 06/23/2010 Immunizations Name Administration Dates Next Due Fluzone High-Dose 08/22/2020 Influenza LAIV (Nasal) 09/08/2018,08/05/2017 Influenza Recombinant Shailesh valent Injectable Preservative Free 12/28/2021 Influenza Split High Dose Pr eservative Free IM 08/22/2020,08/29/2019,09/08/2018,08/05,09/09/2015,09/09/2015 Influenza TIV (IM) 08/06/2013,08/27/2011 Influenza, Injectable, Quadrivalent 09/28/2021 Influenza, Quadrivalent 09/08/2018,08/05/2017 Influenza, Unspecified 08/22/2020,2017,08/05/2017,09/09 Pneumococcal Conjugate 13-Valent 08/05/2017 Pneumococcal Polysaccharide 09/08/2018 Tdap 09/28/2021 Family History Medical History Relation Comments Hypertensive disorder Child Hypertensive disorder Father Coronary arteriosclerosis Mother Heart disease Mother Hypertensive disorder Relative Hypertensive disorder Sibling Anemia Neg Hx Cerebrovascular accident Neg Hx Diabetes mellitus Neg Hx Dyslipidemia Neg Hx Kidney disease Neg Hx Kidney stone Neg Hx Malignant neoplastic disease Neg Hx Relation Status Comments Child Father Mother Relative Sibling Social History Tobacco Use Types Packs/Day Years Used Date Smoking Tobacco: Never Smokeless Tobacco: Never Alcohol Use Standard Drinks/Week Comments Yes 0 (1 standard drink = 0.6 oz pur e alcohol) Sex and Gender Information Value Date Recorded Sex Assigned at Not on file Gender Identity Not on file Sexual Orientation Not on file Last Filed Vital Signs Vital Sign Reading Time Taken Comments Blood Pressure 148/78 06/30/2022 10:50 AM CDT Pulse 62 04/08/2017 12:01 AM CDT Temperature 36.4 ??C (97.5 ??F) 06/30/2022 10:50 AM C DT Respiratory Rate 18 06/30/2022 10:50 AM CDT Oxygen Saturation - - Inhaled Oxygen Concentration - - Weight 72.6 kg (160 lb) 06/30/2022 10:50 AM CDT Height 170.2 cm (5' 7 ) 06/30/2022 10:50 AM CDT Body Mass Index 25.06 06/30/2022 10:50 AM CDT Plan of Treatment Health Maintenance Due Date Last Done Comments Influenza Vaccine (#1) 2024 2, 08/22/2020, 09/08/2018, Additional history exists Pneumococcal PPSV23/PCV13 65 + Years / High and Highest Risk Completed 09/08/2018, 08/05/2017 Care Teams [facility] Sales Relationship Specialty Start Date End Date Diana Mao MD PCP - General Geriatric Medicine 02/20/19
--- OUTSIDE RECORDS SUMMARY | 2024-10-15 16:37 | XMS_ITS | Encounter Summary ---
Author Organization [facility] Address [address] [place] [address] Phone Care Team Providers Care Assistant Inventory Manager Name Role Phone Diana Mao MD Primary Care Provider Unavail able Encounter Details Date Type Department Care Team (Late st Contact Info) Description 10/21/2022 Telephone [facility] Nephrology and Hypertension [facility]4 [facility], [address] [place] [address] Leticia Reyes MD [address] [facility], [address] [facility] [place] [address] Social History Tobacco Use Types Packs/Day Years [...] encounter Miscellaneous Notes * Telephone Encounter - Leticia Reyes MD - 10/21/2022 10:48 AM CST Patient scheduled for office visit at [facility] on Nov 02 2022. Patient currently on hemodialysis and see her at her outpatient dialysis unit. Please her daughters(I think patient is in a jail) that she does not need to come to this appointment since I see her at the dialysis center. Thanks. documented in this encounter Plan of Treatment Not on file documented as of this encounter Visit Diagnoses Not on filedocumented in this encounter Care Teams Assistant Inventory Manager Relationship Specialty Start Date End Date Diana Mao MD PCP - General Geriatric Medicine 02/20/19 documented as of this encounter
--- OUTSIDE RECORDS SUMMARY | 2024-10-15 16:38 | XMS_ITS | Encounter Summary ---
Author Organization [facility] Address [address] [place] [address] Phone Care Team Providers Care Specialist Physicians Name Role Phone Unavailable Primary Care Provider Unavailabl e Encounter Details Date Type Department Care Team (Late st Contact Info) Description 08/23/2018 [facility] Encounter - [facility] [address] [place] [address], [place] [address] Leticia Reyes MD [facility]4 [place], [address]ITE [facility] [place] [address] Social History Tobacco Use Types Packs/Day Years Used Date Smoking Tobacco: Never Assessed Sex and Gender Information Value Date Recorded Sex Assigned at Not on file Gender Identity Not on file Sexual Orientation Not on file documented as of this encounter Plan of Treatment Not on file documented as of this encounter Procedures Procedure Name Priority Date/Time Associated Diagnosis Comments MANUALLY ENTERED ORDER Routine 08/23/2018 12:00 AM CDT documented in this encounter Results * (ABNORMAL) Manually Entered Order (08/23/2018 12:00 AM CDT) Blood Urea Nitrogen (BUN) 29(H) 7 - 25 EXTERNAL LAB (NON-INTERFACE D) Creatinine 1.5(H) 0.7 - 1.25 EXTERNAL LAB (NON-INTERFACE D) Sodium, Serum/Plasma 135 135 - 146 EXTERNAL LAB (NON-INTERFACE D) Potassium 3.0(L) 3.5 - 5.3 EXTERNAL L AB (NON-INTERFACE D) Chloride, Urine 96(L) 98 - 110 EXTE RNAL LAB (NON-INTERFACE D) CO2 29 21 - 33 EXTERNAL L AB (NON-INTERFACE D) CALCIUM 9.2 8.6 - 10.3 EXTERNAL LAB (NON-INTERFACE D) Estimated Glomerular Filtration Rate (eGFR) 34 EXTERNAL LAB (NON-INTERFACE D) 08/23/2018 Leticia Reyes MD LAB BLOOD ORDERABLES EXTERNAL LAB (NON-INTERFACED) documented in this encounter Visit Diagnoses Not on filedocumented in this encounter
--- OUTSIDE RECORDS SUMMARY | 2024-10-15 16:38 | XMS_ITS | Encounter Summary ---
Author Organization [facility] Address [address] [place] [address] Phone Care Team Providers Care Director Of Application Development Name Role Phone Diana Mao MD Primary Care Provider Unavail able Encounter Details Date Type Department Care Team (Late st Contact Info) Description 08/20/2021 Telephone [facility] Nephrology and Hypertension [address] [facility], [address] [place] [address] Mary Lorenzo RN Social History Tobacco Use Types Packs/Day Years [...] Telephone Encounter - Leticia Reyes MD - 08/20/2021 11:21 AM CDT Called and discussed results with patient -- urinalysis not indicative of any infection; presence of protein noted but this is not a new issue for the patient. Unclear as to etiology of her back pain but seems less likely related to kidney or infection at this time -- will await final urine culture results for now. * Telephone Encounter - Mary Lorenzo RN - 08/20/2021 10:47 AM CDT Pt called re: urine test done yesterday. Per pt she is having sever back pain at her waist. Pt denies fever, chills. Suggested pt call pcp or go to urgent care for pain evaluation. Pt stated she wanted to talk to [facility]. Please call pt documented in this encounter Plan of Treatment Not on file documented as of this encounter Visit Diagnoses Not on filedocumented in this encounter Care Teams Director Of Application Development Relationship Specialty Start Date End Date Diana Mao MD PCP - General Geriatric Medicine 02/20/19 documented as of this encounter
--- OUTSIDE RECORDS SUMMARY | 2024-10-15 16:38 | XMS_ITS | Encounter Summary ---
Author Organization [facility] Address [address] [place] [address] Phone Care Team Providers Care Service Tech/Welder Name Role Phone Diana Mao MD Primary Care Provider Unavail able Encounter Details Date Type Department Care Team (Late st Contact Info) Description 11/20/2019 Telephone [facility] Nephrology and Hypertension [facility]4 [facility], [address] [address] Leticia Reyes MD [address] [facility], [address] [place] [address] Social History Tobacco Use Types Packs/Day Years [...] Telephone Encounter - Leticia Reyes MD - 11/27/2019 6:16 PM CST LATE ENTRY: Done * Telephone Encounter - Jackson Mari - 11/20/2019 4:09 PM CST PT CALLED AND SAID SHE DIDN'T GET HER MEDS. THE PHARMACY SHE GAVE US WAS INCORRECT SO PLEASE RESENDTHE 2 MEDS REFILLS TO [employer] [facility] ORDER [phone]. THIS IS NEW INSURANCE FOR HER documented in this encounter Plan of Treatment Not on file documented as of this encounter Visit Diagnoses Not on filedocumented in this encounter Care Teams Service Tech/Welder Relationship Specialty Start Date End Date Diana Mao MD PCP - General Geriatric Medicine 02/20/19 documented as of this encounter
--- OUTSIDE RECORDS SUMMARY | 2024-10-15 16:38 | XMS_ITS | Encounter Summary ---
Author Organization [facility] Address [address] [place] [address] Phone Care Team Providers Care Electronic Parts Salesperson Name Role Phone Diana Mao MD Primary Care Provider Unavail able Encounter Details Date Type Department Care Team (Late st Contact Info) Description 07/01/2022 Telephone [facility] Nephrology and Hypertension [facility]4 [facility], [address] [place] [address] Leticia Reyes MD [address] [facility], [address] [place] [address] Social History Tobacco Use Types Packs/Day Years [...] encounter Miscellaneous Notes * Telephone Encounter - Mary Lorenzo RN - 07/06/2022 10:10 AM CDT Spoke to [facility]iders scheduling re: renal biopsy. Order faxed. [facility] scheduling to contact pt after rad review * Telephone Encounter - Leticia Reyes MD - 07/06/2022 9:32 AM CDT Can you arrange for patient to get ultrasound guided renal biopsy at [place] - reason: worsening CKD associated with nephrotic range proteinuria. Order in Epic. * Telephone Encounter - Luisana Dan - 07/01/2022 2:10 PM CDT Pt called in to state that she has decided to go ahead with kidney Biopsy - Stated she would like to go to [facility] documented in this encounter Plan of Treatment Not on file documented as of this encounter Visit Diagnoses Not on filedocumented in this encounter Care Teams Electronic Parts Salesperson Relationship Specialty Start Date End Date Diana Mao MD PCP - General Geriatric Medicine 02/20/19 documented as of this encounter
--- OUTSIDE RECORDS SUMMARY | 2024-10-15 16:38 | XMS_ITS | Encounter Summary ---
Author Organization [facility] Address [address] [place] [address] Phone Care Team Providers Care Helmet Hat Brim Cutter Name Role Phone Diana Mao MD Primary Care Provider Unavail able Encounter Details Date Type Department Care Team (Late st Contact Info) Description 12/11/2020 11:00 AM RN CARDIAC CATH Office Visit [facility] Nephrology and Hypertension [address] [place] [address], [address] [place] [address] Leticia Reyes MD [address] [facility], [address] [place] [address] Stage 3b chronic kidney disease (CMS-HCC); Hypertensive renal disease; Other proteinuria Social History Tobacco Use Types Packs/Day Years [...] Sign Reading Time Taken Comments Blood Pressure 134/70 12/11/2020 11:17 AM RN CARDIAC CATH Pulse - - Temperature 36.2 ??C (97.1 ??F) 12/11/2020 11:[address] Respiratory Rate 18 12/11/2020 11:17 AM RN CARDIAC CATH Oxygen Saturation - - Inhaled Oxygen Concentration - - Weight 82.6 kg (182 lb) 12/11/2020 11:17 AM RN CARDIAC CATH Height 170.2 cm (5' 7 ) 12/11/2020 11:17 AM RN CARDIAC CATH Body Mass Index 28.51 12/11/2020 11:17 AM RN CARDIAC CATH documented in this encounter Progress Notes * Leticia Reyes MD - 12/11/2020 11:00 AM CST FOLLOW-UP OFFICE VISIT Patient: Kirsty Rea Birthdate: 1940 PCP: Diana Mao MD Visit Date: 12/11/2020 INTERIM HISTORY Kirsty Rea is here for follow-up regarding her hypertension, renal insufficiency, and lower extremity edema. Since last seen, she appears to be doing relatively well. No new issues or problems to report at this time. No distress or other matters voiced at this time. Past medical history, social history and family history has not changed since previous visit. ALLERGIES Allergen Reactions ??? Ramipril kidney damage MEDICATIONS Current Outpatient Medications: ??? aspirin (ST ZENIA) 81 MG EC tablet, bid, Disp: , Rfl: 0 ??? furosemide (LASIX) 20 MG tablet, 1 tab/cap qday, Disp: , Rfl: 3 ??? hydroCHLOROthiazide (HYDRODIURIL) 12.5 MG tablet, Take 1 tablet (12.5 mg total) by mouth 2 (two) times a day, Disp: 60 tablet, Rfl: 11 ??? labetalol (NORMODYNE) 200 MG tablet, Take 1 tablet (200 mg total) by mouth 2 (two) times a day,Disp: 180 tablet, Rfl: 4 ??? Multiple Vitamin (MULTIVITAMIN) capsule, 1 po qd, Disp: , Rfl: 0 ??? NIFEdipine CC (ADALAT CC) 90 MG 24 hr tablet, Take 1 tablet (90 mg total) by mouth 1 (one) timeeach day, Disp: 90 tablet, Rfl: 4 ??? potassium chloride (K-TAB) 20 MEQ CR tablet, 1 QD, Disp: , Rfl: 3 ??? tacrolimus (PROTOPIC) 0.1 % ointment, Apply topically 2 times daily, Disp: , Rfl: REVIEW OF SYSTEMS Constitutional: No fever, weight loss or gain, no fatigue. No loss of appetite. Cardiovascular: No chest pain. No Orthopnea, PND. Respiratory: No cough, no sputum production, no SOB or BLANDON. : No dysuria or gross hematuria. No frequency or urgency. No nocturia. Skin: No rash or itching. VITALS BP 134/70 (BP Location: Right arm, Patient Position: Sitting) Temp 97.1 ??F (36.2 ??C) Resp 18 Ht 5' 7 (1.702 m) Wt 182 lb (82.6 kg) BMI 28.51 kg/m?? BSA 1.98 m?? PHYSICAL EXAM General: Comfortable and in no acute distress Cardiovascular: Normal S1, S2; no rub Respiratory: Clear bilaterally Abdominal: Soft, non-tender, non-distended; positive bowel sounds Extremities: No cyanosis, clubbing, or edema Skin: Warm and dry RECENT LABS/IMAGING Lab Results Component Value Date BUN 38 11/11/2020 CREATININE 1.3 11/11/2020 EGFRAA 46 11/11/2020 EGFR 40 11/11/2020 NA 136 11/11/2020 K 4.3 11/11/2020 CL 105 11/11/2020 CO2 26 11/11/2020 CA 9.1 11/11/2020 PHOSPHATE 5.0 11/11/2020 ALBUMIN 3.9 11/11/2020 GLUCOSE 103 11/11/2020 PROTCREATUR 3,700 11/12/2020 PTH 192.7 09/30/2020 VITD 34.4 09/30/2020 07/21/15 Renal U/S: right kidney 9.8cm, left kidney 10.1cm; no hydronephrosis ASSESSMENT: 1. Stage 3b chronic kidney disease ([facility]-H[facility]) 2. Hypertensive renal disease 3. Other proteinuria PLAN: Kirsty has renal insufficiency due to her age and hypertension. It seems her creatinine seems to fluctuate ~ 1.1 - 1.8mg/dl in the last few years. However, proteinuria is worse -- due to holidays?? - will recheck. To help reduce the rate of kidney deterioration: Control BP: stable Control LDL cholesterol: per PCP Control Intact PTH: at goal Use NOY/ARB: hold given her prior issues with this Low protein diet: follow for now Benefits of slowing renal deterioration reviewed with patient in laymen's terms. Lowering blood pressure, controlling diabetes, and controlling cholesterol reduce insults to the kidney. Low protein diet helps take excess workload off of the kidney. NOY/ARB help to decrease pressure in kidney and also decrease hormones that cause scar formation. Blood Pressure for this visit is 134/70. The follow up plan to address blood pressure is follow thetrend. Body mass index is 28.51 kg/m??. Follow up plan to address BMI is no intervention as she is at goal. Continue current medications Repeat labs prior to next visit Carmela Wills MD documented in this encounter Plan of Treatment Not on file documented as of this encounter Procedures Procedure Name Priority Date/Time Associated Diagnosis Comments TOTAL PROTEIN W/ CREATININE, URINE, RANDOM Routine 11/12/2020 RENAL FUNCTION PANEL (RFP) Routine 11/11/2020 documented in this encounter Results * Total Protein w/ Creatinine, Urine, Random (11/12/2020) Protein/Creati nine, Urine 3,700 mg/g creatinine EXTERNAL LAB (NON-INTERFAC ED) Historical Provider LAB URINE ORDERAB LES EXTERNAL LAB (NON-INTERFACED) * Renal Function Panel (RFP) (11/11/2020) Albumin, Serum/Plasma 3.9 g/L EXTERNAL LAB (NON-INTERFACE D) Calcium, Serum/Plasma 9.1 mg/dL EXTERNAL LAB (NON-INTERFACE D) Carbon dioxide CO2), total, Serum/Plasma 26 mmol/L EXTERNAL LAB (NON-INTERFACE D) Chloride, Serum/Plasma 105 mmol/L EXTERNAL LAB (NON-INTERFACE D) Creatinine, Serum/Plasma 1.3 mg/dL EXTERNAL LAB (NON-INTERFACE D) Glucose, Serum/Plasma 103 mg/dL EXTERNAL LAB (NON-INTERFACE D) Phosphate, Serum/Plasma 5.0 mg/dL EXTERNAL LAB (NON-INTERFACE D) Potassium, Serum/Plasma 4.3 mmol/L EXTERNAL LAB (NON-INTERFACE D) Sodium, Serum/Plasma 136 mmol/L EXTERNAL LAB (NON-INTERFACE D) Urea nitrogen, Serum/Plasma (BUN) 38 mg/dL EXTERNAL LAB (NON-INTERFACE D) eGFR, non 40 mL/min EXTERNAL LAB (NON-INTERFACE D) eGFR, 46 mL/min EXTERNAL LAB (NON-INTERFACE D) Blood (Blood, Venous) Historical Provider MD LAB BLOOD ORDERAB LES EXTERNAL LAB (NON-INTERFACED) documented in this encounter Visit Diagnoses Diagnosis Stage 3b chronic kidney disease (CMS-HCC) Hypertensive renal disease Other proteinuria documented in this encounter Care Teams Helmet Hat Brim Cutter Relationship Specialty Start Date End Date Diana Mao MD PCP - General Geriatric Medicine 02/20/19 documented as of this encounter
--- OUTSIDE RECORDS SUMMARY | 2024-10-15 16:38 | XMS_ITS | Encounter Summary ---
Author Organization [facility] Address [address] [place] [address] Phone Care Team Providers Care Produce Department Manager Name Role Phone Diana Mao MD Primary Care Provider Unavail able Reason for Referral * Imaging (Routine) - Closed Specialty Diagnoses / Procedures Referred By Abena torrez Referred To Contact Diagnoses Chronic kidney disease, Stage V (CMS-HCC) Other proteinuria Procedures Ultrasound guided kidney biopsy Leticia Reyes MD [facility]4 [facility], [address] [address] Referral ID Status Reason Start Date Expiration Date Visits Re quested Visits Authorized [id number] Closed 07/06/2022 01/02/2023 1 1 Encounter Details Date Type Department Care Team (Late st Contact Info) Description 07/06/2022 Orders Only [facility] Nephrology and Hypertension [facility]4 [facility], [address] [place] [address] Leticia Reyes MD [address] [place] [address], [address] [place] [address] [id number] Chronic kidney disease, Stage V (CMS-HCC) (Primary Dx); Other proteinuria Social History Tobacco Use Types [...] as of this encounter Plan of Treatment Scheduled Orders Name Type Priority Associated Diagnoses Orde r Schedule Ultrasound guided kidney biopsy Imaging Routine Chronic kidney disease, Stage V ([facility]) Other proteinuria Expected: 07/06/2022, Expires: 07/06/2023 documented as of this encounter Visit Diagnoses Diagnosis Chronic kidney disease, Stage V ([facility])- Primary Chronic kidney disease, Stage V Other proteinuria documented in this encounter Care Teams Produce Department Manager Relationship Specialty Start Date End Date Diana Mao MD PCP - General Geriatric Medicine 02/20/19 documented as of this encounter
--- OUTSIDE RECORDS SUMMARY | 2024-10-15 16:38 | XMS_ITS | Encounter Summary ---
Author Organization [facility] Address [address] [place] [address] Phone Care Team Providers Care Senior Process Control Tech Name Role Phone Diana Mao MD Primary Care Provider Unavail able Encounter Details Date Type Department Care Team (Late st Contact Info) Description 12/30/2020 Telephone [facility] Nephrology and Hypertension [address] [facility], [address] [place] [address] Jackson Mari MA Social History Tobacco Use Types Packs/Day Years [...] encounter Miscellaneous Notes * Telephone Encounter - Luisana Dan - 12/31/2020 2:34 PM CST LMOR - to have pt CB w/ correct # [facility] * Telephone Encounter - Leticia Reyes MD - 12/30/2020 8:34 PM CST The below phone number is not correct -- can you verify the phone number with patient? Thanks. * Telephone Encounter - Jackson Mari MA - 12/30/2020 11:13 AM CST Pt called and needs a refill on her hydrocholizide. She has a new mail order phamacy, [facility] [phone], [facility]ION 2 THE NUMBER ABOVE WAS GIVE BY PT., THE NUMBER OF PHARMACY ON PT S CHART IS DIFFERENT documented in this encounter Plan of Treatment Not on file documented as of this encounter Visit Diagnoses Not on filedocumented in this encounter Care Teams Senior Process Control Tech Relationship Specialty Start Date End Date Diana Mao MD PCP - General Geriatric Medicine 02/20/19 documented as of this encounter
--- OUTSIDE RECORDS SUMMARY | 2024-10-15 16:38 | XMS_ITS | Encounter Summary ---
Author Organization [facility] Address [address] [place] [phone] Phone Care Team Providers Care Treating And Pumping Supervisor Name Role Phone Diana Mao MD Primary Care Provider Unavail able Reason for Visit * Reason Comments Med Refill Encounter Details Date Type Department Care Team (Late st Contact Info) Description 01/27/2022 Refill [facility] Nephrology and Hypertension [facility], [address] [address] Leticia Reyes MD 1034 [facility], SUITE [facility], [facility]0 [place] [address] Social History Tobacco Use Types Packs/Day Years [...] on filedocumented in this encounter Care Teams Treating And Pumping Supervisor Relationship Specialty Start Date End Date Diana Mao MD PCP - General Geriatric Medicine 02/20/19 documented as of this encounter
--- OUTSIDE RECORDS SUMMARY | 2024-10-15 16:38 | XMS_ITS | Encounter Summary ---
Author Organization [facility] Address [address] [place] [address] Phone Care Team Providers Care Utility Plant Operative Name Role Phone Diana Mao MD Primary Care Provider Unavail able Encounter Details Date Type Department Care Team (Late st Contact Info) Description 08/17/2021 Telephone [facility] Nephrology and Hypertension 1034 [facility], [address] [place] [address] Leticia Reyes MD 1034 [facility], SUITE [facility]0 [place] [address] Social History Tobacco Use Types Packs/Day Years [...] Encounter - Leticia Reyes MD - 08/20/2021 11:23 AM CDT See previous message to patient. T * Telephone Encounter - Luisana Dan - 08/19/2021 10:42 AM CDT Spoke w/ pt - could not get labs done - 08/18 - going today 08/19 Would like to know results once you have them Thank you * Telephone Encounter - Lusiana Dan - 08/18/2021 9:04 AM CDT Fax lab req to [facility] w/ - to let her know Stated she's going today 08/18 * Telephone Encounter - Leticia Reyes MD - 08/17/2021 4:38 PM CDT Patient called with increased frequency in urination 20 times in the last 24 hours -- no fever, chills or any other systemic symptoms. Otherwise feels well -- unclear if this is a kidney issue versus a bladder issue. Will order a UA and urine culture -- remind me to fill out a generic lab req for this and fax to [facility]. Once we fax it, please call patient to let her know the order is at the lab. Thanks. documented in this encounter Plan of Treatment Not on file documented as of this encounter Visit Diagnoses Not on filedocumented in this encounter Care Teams Utility Plant Operative Relationship Specialty Start Date End Date Diana Mao MD PCP - General Geriatric Medicine 02/20/19 documented as of this encounter
--- OUTSIDE RECORDS SUMMARY | 2024-10-15 16:38 | XMS_ITS | Encounter Summary ---
Author Organization [facility]ions Address [address] [place] [address] Phone Care Team Providers Care Data Scientist Name Role Phone Diana Mao MD Primary Care Provider Unavail able Encounter Details Date Type Department Care Team (Late st Contact Info) Description 04/09/2021 11:00 AM CDT Office Visit [facility] Nephrology and Hypertension [address] [place] [address], [address] [place] [address] Leticia Reyes MD 1034 [address] [facility], [address] [place] [address] Stage 3b chronic kidney disease (CMS-HCC); Hypertensive [...] Sign Reading Time Taken Comments Blood Pressure 136/80 04/09/2021 11:03 AM CDT Pulse - - Temperature 36.1 ??C (97 ??F) 04/09/2021 11:03 AM CDT Respiratory Rate 18 04/09/2021 11:03 AM CDT Oxygen Saturation - - Inhaled Oxygen Concentration - - Weight 79.8 kg (176 lb) 04/09/2021 11:03 AM CDT Height 170.2 cm (5' 7 ) 04/09/2021 11:03 AM CDT Body Mass Index 27.57 04/09/2021 11:03 AM CDT documented in this encounter Progress Notes * Leticia Reyes MD - 04/09/2021 11:00 AM CDT FOLLOW-UP OFFICE VISIT Patient: Kirsty Rea Birthdate: 1940 PCP: Diana Mao MD Visit Date: 04/09/2021 INTERIM HISTORY Kirsty Rea is here for follow-up regarding her hypertension, renal insufficiency, and lower extremity edema. She seems to be doing fairly well since I last saw her. No new issues or problems stated at this time. No distress or other matters to speak of at this time. Past medical history, social history and family history has not changed since previous visit. ALLERGIES Allergen Reactions ??? Ramipril kidney damage MEDICATIONS Current Outpatient Medications: ??? aspirin (ST ZENIA) 81 MG EC tablet, bid, Disp: , Rfl: 0 ??? hydroCHLOROthiazide (HYDRODIURIL) 12.5 MG tablet, Take 1 tablet (12.5 mg total) by mouth 2 (two) times a day, Disp: 180 tablet, Rfl: 3 ??? labetalol (NORMODYNE) 200 MG tablet, TAKE 1 TABLET TWICE A DAY, Disp: 180 tablet, Rfl: 3 ??? Multiple Vitamin (MULTIVITAMIN) capsule, 1 po qd, Disp: , Rfl: 0 ??? NIFEdipine CC (ADALAT CC) 90 MG 24 hr tablet, TAKE 1 TABLET ONE TIME EACH DAY, Disp: 90 tablet,Rfl: 3 ??? potassium chloride (K-TAB) 20 MEQ CR tablet, 1 QD, Disp: , Rfl: 3 ??? tacrolimus (PROTOPIC) 0.1 % ointment, Apply topically 2 times daily, Disp: , Rfl: ??? triamcinolone (KENALOG) 0.1 % cream, APPLY TO RASH ON BACK AND BODY TWICE A DAY NEEDED. AVOID FACE., Disp: , Rfl: REVIEW OF SYSTEMS Constitutional: No fever, weight loss or gain, no fatigue. No loss of appetite. Cardiovascular: No chest pain. No Orthopnea, PND. Respiratory: No cough, no sputum production, no SOB or BLANDON. : No dysuria or gross hematuria. No frequency or urgency. No nocturia. Skin: No rash or itching. VITALS BP 136/80 (BP Location: Right arm, Patient Position: Sitting) Temp 97 ??F (36.1 ??C) Resp 18 Ht 5' 7 (1.702 m) Wt 176 lb (79.8 kg) BMI 27.57 kg/m?? BSA 1.94 m?? PHYSICAL EXAM General: Comfortable and in no acute distress Cardiovascular: Normal S1, S2; no rub Respiratory: Clear bilaterally Abdominal: Soft, non-tender, non-distended; positive bowel sounds Extremities: No cyanosis, clubbing, or edema Skin: Warm and intact RECENT LABS/IMAGING Lab Results Component Value Date BUN 53 04/02/2021 CREATININE 1.8 04/02/2021 EGFRAA 31 04/02/2021 EGFR 27 04/02/2021 NA 137 04/02/2021 K 4.0 04/02/2021 CL 102 04/02/2021 CO2 29 04/02/2021 CA 9.2 04/02/2021 PHOSPHATE 4.6 04/02/2021 ALBUMIN 4.0 04/02/2021 GLUCOSE 92 04/02/2021 PROTCREATUR 4,390 04/02/2021 PTH 217 04/02/2021 VITD 32.9 04/02/2021 07/21/15 Renal U/S: right kidney 9.8cm, left kidney 10.1cm; no hydronephrosis ASSESSMENT 1. Stage 3b chronic kidney disease (CMS-HCC) 2. Hypertensive renal disease 3. Other proteinuria DISCUSSION/PLAN Kirsty has renal insufficiency due to her age and hypertension. It seems her creatinine seems to fluctuate ~ 1.1 - 1.8mg/dl in the last few years. However, proteinuria seems to be getting progressively worse despite all conservative measures to date. To help reduce the rate of kidney deterioration: Control BP: stable Control LDL cholesterol: per PCP Control Intact PTH: little high - will follow Use NOY/ARB: hold given her prior issues [...] formation. Blood Pressure for this visit is 136/80. The follow up plan to address blood pressure is follow thetrend. Body mass index is 27.57 kg/m??. Follow up plan to address BMI is no intervention as she is at goal. Continue current medications Repeat labs prior to next visit Carmela Wills MD documented in this encounter Plan of Treatment Not on file documented as of this encounter Procedures Procedure Name Priority Date/Time Associated Diagnosis Comments PTH, INTACT W/ CALCIUM Routine 04/02/2021 VITAMIN D, 1, 25-DIHYDROXY Routine 04/02/2021 TOTAL PROTEIN W/ CREATININE, URINE, RANDOM Routine 04/02/2021 RENAL FUNCTION PANEL (RFP) Routine 04/02/2021 documented in this encounter Results * PTH, Intact w/ Calcium (04/02/2021) PTH, Intact, Serum/Plasma 217 ng/L EXTERNAL LAB (NON-INTERFACE D) Historical Provider MD LAB BLOOD ORDERAB LES Performing Organization Address [facility] Co de Phone Number EXTERNAL LAB (NON-INTERFACED) * Vitamin D, 1, 25-Dihydroxy (04/02/2021) 25-Hydroxyvitam in D2+25-Hydroxyvi tamin D3, Serum/Plasma 32.9 ng/mL EXTERNAL LAB (NON-INTERFACE D) Historical Provider MD LAB BLOOD ORDERAB LES Performing Organization Address City/[facility]/ZIP Co de Phone Number EXTERNAL LAB (NON-INTERFACED) * Total Protein w/ Creatinine, Urine, Random (04/02/2021) Protein/Creati nine, Urine 4,390 mg/g creatinine EXTERNAL LAB (NON-INTERFAC ED) Historical Provider MD LAB URINE ORDERAB LES Performing Organization Address [facility] Co de Phone Number EXTERNAL LAB (NON-INTERFACED) * Renal Function Panel (RFP) (04/02/2021) Albumin, Serum/Plasma 4.0 g/L EXTERNAL LAB (NON-INTERFACE D) Calcium, Serum/Plasma 9.2 mg/dL EXTERNAL LAB (NON-INTERFACE D) Carbon dioxide CO2), total, Serum/Plasma 29 mmol/L EXTERNAL LAB (NON-INTERFACE D) Chloride, Serum/Plasma 102 mmol/L EXTERNAL LAB (NON-INTERFACE D) Creatinine, Serum/Plasma 1.8 mg/dL EXTERNAL LAB (NON-INTERFACE D) Glucose, Serum/Plasma 92 mg/dL EXTERNAL LAB (NON-INTERFACE D) Phosphate, Serum/Plasma 4.6 mg/dL EXTERNAL LAB (NON-INTERFACE D) Potassium, Serum/Plasma 4.0 mmol/L EXTERNAL LAB (NON-INTERFACE D) Sodium, Serum/Plasma 137 mmol/L EXTERNAL LAB (NON-INTERFACE D) Urea nitrogen, Serum/Plasma (BUN) 53 mg/dL EXTERNAL LAB (NON-INTERFACE D) eGFR, non 27 mL/min EXTERNAL LAB (NON-INTERFACE D) eGFR, 31 mL/min EXTERNAL LAB (NON-INTERFACE D) Blood (Blood, Venous) Historical Provider MD LAB BLOOD ORDERAB LES EXTERNAL LAB (NON-INTERFACED) documented in this encounter Visit Diagnoses Diagnosis Stage 3b chronic kidney disease ([facility]-HCC) Hypertensive renal disease Other proteinuria documented in this encounter Care Teams Data Scientist Relationship Specialty Start Date End Date Diana Mao MD PCP - General Geriatric Medicine 02/20/19 documented as of this encounter
--- OUTSIDE RECORDS SUMMARY | 2024-10-15 16:38 | XMS_ITS | Encounter Summary ---
Author Organization [facility] Address [address] [place] [phone] Phone Care Team Providers Care Computational Geneticist Name Role Phone Diana Mao MD Primary Care Provider Unavail able Reason for Referral * (Routine) - Closed Specialty Diagnoses / Procedures Referred By Abena torrez Referred To Contact Diagnoses Chronic kidney disease, Stage V (CMS-HCC) Hypertensive renal disease Other proteinuria Procedures Ultrasound renal complete Leticia Reyes MD 1034 [facility], [address] [place] [address] Referral ID Status Reason Start Date Expiration Date Visits Re quested Visits Authorized [id number] Closed 06/30/2022 12/27/2022 1 1 Encounter Details Date Type Department Care Team (Late st Contact Info) Description 06/30/2022 10:45 AM CDT Office Visit [facility] Nephrology and Hypertension [address] [place] [address], [address] [place] [address] Leticia Reyes MD 1034 [facility], [address] [place], [place] [id number] Chronic kidney disease, Stage V (CMS-HCC); Hypertensive renal disease; Other proteinuria Social [...] Pressure 148/78 06/30/2022 10:50 AM CDT Pulse - - Temperature 36.4 ??C (97.5 ??F) 06/30/2022 10:50 AM C DT Respiratory Rate 18 06/30/2022 10:50 AM CDT Oxygen Saturation - - Inhaled Oxygen Concentration - - Weight 72.6 kg (160 lb) 06/30/2022 10:50 AM CDT Height 170.2 cm (5' 7 ) 06/30/2022 10:50 AM CDT Body Mass Index 25.06 06/30/2022 10:50 AM CDT documented in this encounter Progress Notes * Leticia Reyes MD - 06/30/2022 10:45 AM CDT FOLLOW-UP OFFICE VISIT Patient: Kirsty Rea Birthdate: 1940 PCP: Diana Mao MD Visit Date: 06/30/2022 INTERIM HISTORY Kirsty Rea is here for follow-up regarding her kidney disease, hypertension and lower extremity edema. It has been almost a year since I last saw her (March 2021) due to cancelled and missed appointments. She reports she has been have loose bowel movements in the timeframe when I last saw her. Cholestyramine prescribed and helps. Since last seen, she appears to be doing reasonably. No new issues or problems to mention at this time. No distress or other matters communicated at this time. Past medical history, social history and family history has not changed since previous visit. ALLERGIES Allergen Reactions ??? Ramipril kidney damage MEDICATIONS Current Outpatient Medications: ??? cycloSPORINE (Restasis) 0.05 % ophthalmic emulsion, , Disp: , Rfl: ??? Lifitegrast (Xiidra) 5 % solution, , Disp: , Rfl: ??? olopatadine (PATADAY) 0.2 % ophthalmic solution, Administer 1 drop into affected eye(s) daily, Disp: , Rfl: ??? aspirin (ST ZENIA) 81 MG EC tablet, bid, Disp: , Rfl: 0 ??? cetirizine (ZyrTEC) 10 MG tablet, Take 10 mg by mouth 1 (one) time each day if needed, Disp: , Rfl: ??? cholestyramine (QUESTRAN) 4 g packet, Take 1 packet by mouth 3 times daily, Disp: , Rfl: ??? hydroCHLOROthiazide (MICROZIDE) 12.5 MG capsule, Take 12.5 mg by mouth 1 (one) time each day, Disp: , Rfl: ??? labetalol (NORMODYNE) 200 MG tablet, TAKE 1 TABLET TWICE A DAY, Disp: 180 tablet, Rfl: 3 ??? Multiple Vitamin (MULTIVITAMIN) capsule, 1 po qd, Disp: , Rfl: 0 ??? Naproxen Sodium 220 MG capsule, Take by mouth, Disp: , Rfl: ??? NIFEdipine CC (ADALAT CC) 90 MG 24 hr tablet, TAKE 1 TABLET ONE TIME EACH DAY, Disp: 90 tablet,Rfl: 3 ??? omega-3 (FISH OIL) 1200 MG capsule, Take by mouth, Disp: , Rfl: ??? oxybutynin (DITROPAN) 5 MG tablet, Take 5 mg by mouth 1 (one) time each day, Disp: , Rfl: ??? potassium chloride (K-TAB) 20 MEQ CR [...] Location: Right arm, Patient Position: Sitting) Temp 97.5 ??F (36.4 ??C) Resp 18 Ht 5' 7 (1.702 m) Wt 160 lb (72.6 kg) BMI 25.06 kg/m?? BSA 1.85 m?? PHYSICAL EXAM General: Comfortable and in no acute distress Cardiovascular: Normal S1, S2; no rub Respiratory: Clear bilaterally Abdominal: Soft, non-tender, non-distended; positive bowel sounds Extremities: No cyanosis, clubbing, trace - 1+ edema Skin: No rash or nodules RECENT LABS/IMAGING Lab Results Component Value Date BUN 73 06/28/2022 CREATININE 3.3 06/28/2022 EGFR 13 06/28/2022 NA 134 06/28/2022 K 3.8 06/28/2022 CL 103 06/28/2022 CO2 21 06/28/2022 CA 8.9 06/28/2022 PHOSPHATE 6.1 06/28/2022 ALBUMIN 3.5 06/28/2022 GLUCOSE 96 06/28/2022 PROTCREATUR 3,390 06/28/2022 PTH 217 04/02/2021 VITD 32.9 04/02/2021 07/21/15 Renal U/S: right kidney 9.8cm, left kidney 10.1cm; no hydronephrosis Creatinine, Serum/Plasma Date Value Ref Range Status 06/28/2022 3.3 mg/dL Final 12/14/2021 2.4 mg/dL Final 08/20/2021 2.1 mg/dL Final 04/02/2021 1.8 mg/dL Final 11/11/2020 1.3 mg/dL Final 09/30/2020 1.6 mg/dL Final 01/04/2020 2.1 mg/dL Final 11/14/2019 1.3 mg/dL Final ASSESSMENT 1. Chronic kidney disease, Stage V (CMS-HCC) 2. Hypertensive renal disease 3. Other proteinuria DISCUSSION/PLAN Kirsty has renal insufficiency/chronic kidney disease due to her age and hypertension. Her creatinine had been fluctuating ~ 1.3 - 1.8mg/dl in the last few years but more recently, her creatinine has be slowly deteriorating as noted above in association with nephrotic range proteinuria. To help reduce the rate of kidney deterioration: Control BP: stable Control LDL cholesterol: per PCP Control Intact PTH: will recheck Use NOY/ARB: hold given her prior issues [...] also decrease hormones that cause scar formation. I concerned about her rising creatinine in association with nephrotic range proteinuria -- I suppose this could just be progression of disease but it seems a bit rapid. I wonder if a renal biopsy maygive us a more definitive answer with regard to why her renal function continues to decline -- I discussed this in great detail with the patient and her daughter (> 20 minutes)...they will think things over. Blood Pressure for this visit is 136/80. The follow up plan to address blood pressure is follow thetrend. Body mass index is 25.06 kg/m??. Follow up plan to address BMI is no intervention as she is at goal. Continue current medications Repeat labs prior to next visit Call me if renal biopsy is okay to do... Carmela Wills MD documented in this encounter Plan of Treatment Scheduled Orders Name Type Priority Associated Diagnoses Orde r Schedule Ultrasound renal complete Imaging Routine Chronic kidney disease, Stage V ([facility]-HCC) Hypertensive renal disease Other proteinuria Expected: 07/30/2022 (Approximate), Expires: 06/30/2023 documented as of this encounter Procedures Procedure Name Priority Date/Time Associated Diagnosis Comments TOTAL PROTEIN W/ CREATININE, URINE, RANDOM Routine 06/28/2022 RENAL FUNCTION PANEL (RFP) Routine 06/28/2022 RENAL FUNCTION PANEL (RFP) Routine 12/14/2021 documented in this encounter Results * Total Protein w/ Creatinine, Urine, Random (06/28/2022) Protein/Creati nine, Urine 3,390 mg/g creatinine EXTERNAL LAB (NON-INTERFAC ED) Historical Provider LAB URINE ORDERAB LES EXTERNAL LAB (NON-INTERFACED) * Renal Function Panel (RFP) (06/28/2022) Albumin, Serum/Plasma 3.5 g/L EXTERNAL LAB (NON-INTERFACE D) Calcium, Serum/Plasma 8.9 mg/dL EXTERNAL LAB (NON-INTERFACE D) Carbon dioxide CO2), total, Serum/Plasma 21 mmol/L EXTERNAL LAB (NON-INTERFACE D) Chloride, Serum/Plasma 103 mmol/L EXTERNAL LAB (NON-INTERFACE D) Creatinine, Serum/Plasma 3.3 mg/dL EXTERNAL LAB (NON-INTERFACE D) Glucose, Serum/Plasma 96 mg/dL EXTERNAL LAB (NON-INTERFACE D) Phosphate, Serum/Plasma 6.1 mg/dL EXTERNAL LAB (NON-INTERFACE D) Potassium, Serum/Plasma 3.8 mmol/L EXTERNAL LAB (NON-INTERFACE D) Sodium, Serum/Plasma 134 mmol/L EXTERNAL LAB (NON-INTERFACE D) Urea nitrogen, Serum/Plasma (BUN) 73 mg/dL EXTERNAL LAB (NON-INTERFACE D) eGFR, non 13 mL/min EXTERNAL LAB (NON-INTERFACE D) Blood (Blood, Venous) Historical Provider MD LAB BLOOD ORDERAB LES EXTERNAL LAB (NON-INTERFACED) * Renal Function Panel (RFP) (12/14/2021) Creatinine, Serum/Plasma 2.4 mg/dL EXTERNAL LAB (NON-INTERFACE D) Blood (Blood, Venous) Historical Provider MD LAB BLOOD ORDERAB LES EXTERNAL LAB (NON-INTERFACED) documented in this encounter Visit Diagnoses Diagnosis Chronic kidney disease, Stage V ([facility]) Chronic kidney disease, Stage V Hypertensive renal disease Other proteinuria documented in this encounter Care Teams Computational Geneticist Relationship Specialty Start Date End Date Diana Mao MD PCP - General Geriatric Medicine 02/20/19 documented as of this encounter
--- OUTSIDE RECORDS SUMMARY | 2024-10-15 16:38 | XMS_ITS | Encounter Summary ---
Author Organization [facility] reynaga Address [address] [place] [phone] Phone Care Team Providers Care Senior Housekeeper Name Role Phone Diana Mao MD Primary Care Provider Unavail able Encounter Details Date Type Department Care Team (Late st Contact Info) Description 11/14/2019 Telephone [facility] Nephrology and Hypertension 1034 [facility], [address] [address] Leticia Reyes MD 1034 [facility], [address] [place] [address] Social History Tobacco Use Types Packs/Day Years [...] Notes * Telephone Encounter - Mary Lorenzo - 11/14/2019 11:14 AM CST Pt called, switch RX coverage needs new RX order sent in for : Nifedipiner 90mg Labetalol 200mg To [facility] documented in this encounter Plan of Treatment Not on file documented as of this encounter Visit Diagnoses Not on filedocumented in this encounter Care Teams Senior Housekeeper Relationship Specialty Start Date End Date Diana Mao MD PCP - General Geriatric Medicine 02/20/19 documented as of this encounter
--- OUTSIDE RECORDS SUMMARY | 2024-10-15 16:38 | XMS_ITS | Encounter Summary ---
Author Organization [facility] utitheo Address [address] [place] [address] Phone Care Team Providers Care [employer] Name Role Phone Unavailable Primary Care Provider Unavailabl e Encounter Details Date Type Department Care Team (Late st Contact Info) Description 08/04/2017 [facility] Encounter - Labs HISTORICAL CONVERSION CENTRAL [address] [place] [address], [place] [address] Leticia Reyes MD [employer], SUITE [facility] [place] [address] Social History Tobacco Use Types Packs/Day Years [...] Associated Diagnosis Comments MANUALLY ENTERED ORDER Routine 08/04/2017 12:00 AM CDT documented in this encounter Results * (ABNORMAL) Manually Entered Order (08/04/2017 12:00 AM CDT) Blood Urea Nitrogen (BUN) 24 7 - 25 EXTERNAL LAB Creatinine 1.0 0.7 - 1.25 EXTERNAL LAB Sodium, Serum/Plasma 140 135 - 146 EXTERNAL LAB Potassium 3.6 3.5 - 5.3 EXTERNAL LAB Chloride, Urine 103 98 - 110 EXTERNAL LAB CO2 24 21 - 33 EXTERNAL LAB CALCIUM 9.4 8.6 - 10.3 EXTERNAL LAB PHOSPHORUS 4.0 2.1 - 4.3 EXTERNAL LAB Albumin 4.5 3.6 - 5.1 EXTERNAL LAB Estimated Glomerular Filtration Rate (eGFR) 54 EXTERNAL LAB Protein/Creatin ine, Urine 2,585(H) 22 - 128 EXTERNAL LAB Vitamin D (25-OH) 35 EXTERNAL LAB PTH, INTACT 69 EXTERNAL LAB 08/04/2017 Leticia Reyes MD LAB BLOOD ORDERABLES EXTERNAL LAB documented in this encounter Visit Diagnoses Not on filedocumented in this encounter
--- OUTSIDE RECORDS SUMMARY | 2024-10-15 16:38 | XMS_ITS | Encounter Summary ---
Author Organization [facility] utitheo Address [address] [place] [address] Phone Care Team Providers Care Fire Inspector Name Role Phone Unavailable Primary Care Provider Unavailabl e Encounter Details Date Type Department Care Team (Late st Contact Info) Description 10/04/2018 [facility] Encounter - Labs HISTORICAL CONVERSION CENTRAL [address] [place] [address], [place] [address] Leticia Reyes MD [facility], SUITE [facility] [place] [address] Social History Tobacco Use Types Packs/Day Years [...] Associated Diagnosis Comments MANUALLY ENTERED ORDER Routine 10/04/2018 12:00 AM ASSEMBLY INSPECTOR HELPER documented in this encounter Results * (ABNORMAL) Manually Entered Order (10/04/2018 12:00 AM ASSEMBLY INSPECTOR HELPER) Blood Urea Nitrogen (BUN) 38(H) 7 - 25 EXTERNAL LAB (NON-INTERFACE D) Creatinine 1.7(H) 0.7 - 1.25 EXTERNAL LAB (NON-INTERFACE D) Sodium, Serum/Plasma 135 135 - 146 EXTERNAL LAB (NON-INTERFACE D) Potassium 3.4(L) 3.5 - 5.3 EXTERNAL L AB (NON-INTERFACE D) Chloride, Urine 96(L) 98 - 110 EXTE RNAL LAB (NON-INTERFACE D) CO2 29 21 - 33 EXTERNAL L AB (NON-INTERFACE D) CALCIUM 9.9 8.6 - 10.3 EXTERNAL LAB (NON-INTERFACE D) PHOSPHORUS 3.9 2.1 - 4.3 EXTERNAL LAB (NON-INTERFACE D) Albumin 4.2 3.6 - 5.1 EXTERNAL L AB (NON-INTERFACE D) Estimated Glomerular Filtration Rate (eGFR) 29 EXTERNAL LAB (NON-INTERFACE D) Protein/Creatin ine, Urine 848(H) 22 - 128 EXTERNAL LAB (NON-INTERFACE D) Vitamin D (25-OH) 53.5 EXTERNAL LAB (NON-INTERFACE D) PTH, INTACT 116.5 EXTERNAL LAB (NON-INTERFACE D) 10/04/2018 Leticia Reyes MD LAB BLOOD ORDERABLES EXTERNAL LAB (NON-INTERFACED) documented in this encounter Visit Diagnoses Not on filedocumented in this encounter
--- OUTSIDE RECORDS SUMMARY | 2024-10-15 16:38 | XMS_ITS | Encounter Summary ---
Author Organization [facility] Address [address] [place] [address] Phone Care Team Providers Care Site Identification Specialist Name Role Phone Unavailable Primary Care Provider Unavailabl e Encounter Details Date Type Department Care Team (Late st Contact Info) Description 01/02/2018 Legacy Encounter - Labs HISTORICAL CONVERSION CENTRAL [address] [place] [address], [place] [address] Leticia Reyes MD [facility]4 [facility], SUITE [facility] [place] [address] Social History Tobacco Use Types Packs/Day Years [...] Associated Diagnosis Comments MANUALLY ENTERED ORDER Routine 01/02/2018 12:00 AM ASSOCIATE PROFESSOR OF CRIMINAL JUSTICE documented in this encounter Results * (ABNORMAL) Manually Entered Order (01/02/2018 12:00 AM ASSOCIATE PROFESSOR OF CRIMINAL JUSTICE) Blood Urea Nitrogen (BUN) 29(H) 7 - 25 EXTERNAL LAB Creatinine 1.1 0.7 - 1.25 EXTERNAL LAB Sodium, Serum/Plasma 141 135 - 146 EXTERNAL LAB Potassium 3.8 3.5 - 5.3 EXTERNAL LAB Chloride, Urine 101 98 - 110 EXTERNAL LAB CO2 29 21 - 33 EXTERNAL LAB CALCIUM 9.1 8.6 - 10.3 EXTERNAL LAB PHOSPHORUS 4.1 2.1 - 4.3 EXTERNAL LAB Albumin 4.0 3.6 - 5.1 EXTERNAL LAB Estimated Glomerular Filtration Rate (eGFR) 48 EXTERNAL LAB Protein/Creatin ine, Urine 3,323(H) 22 - 128 EXTERNAL LAB 01/02/2018 Leticia Reyes MD LAB BLOOD ORDERABLES EXTERNAL LAB documented in this encounter Visit Diagnoses Not on filedocumented in this encounter
--- OUTSIDE RECORDS SUMMARY | 2024-10-15 16:38 | XMS_ITS | Encounter Summary ---
Author Organization [facility] Address [address] [place] [address] Phone Care Team Providers Care Agricultural Research Technologist Name Role Phone Diana Mao MD Primary Care Provider Unavail able Encounter Details Date Type Department Care Team (Late st Contact Info) Description 11/14/2019 Telephone [facility] Nephrology and Hypertension [address] [facility], [address] [place] [address] Leticia Reyes MD 1034 [facility], SUITE [facility]0 [place] [address] Social History Tobacco Use Types Packs/Day Years [...] Telephone Encounter - Leticia Reyes MD - 11/15/2019 3:17 PM CST Done * Telephone Encounter - Mary Lorenzo - 11/14/2019 11:22 AM CST Pt called. has new RX coverage. Needs new RX sent to: [facility] fax#[phone] Nifedipiner 90mg Labetalol 200mg Tks MILDRED documented in this encounter Plan of Treatment Not on file documented as of this encounter Visit Diagnoses Not on filedocumented in this encounter Care Teams Agricultural Research Technologist Relationship Specialty Start Date End Date Diana Mao MD PCP - General Geriatric Medicine 02/20/19 documented as of this encounter
--- OUTSIDE RECORDS SUMMARY | 2024-10-15 16:38 | XMS_ITS | Encounter Summary ---
Author Organization [facility] Address [address] [place] [address] Phone Care Team Providers Care Zipper Machine Operator Name Role Phone Diana Mao MD Primary Care Provider Unavail able Encounter Details Date Type Department Care Team (Late st Contact Info) Description 09/29/2020 Telephone [facility] Nephrology and Hypertension [address] [facility], [address] [place] [address] Patricia Lorenzo MA Social History Tobacco Use Types Packs/Day [...] Telephone Encounter - Leticia Reyes MD - 09/29/2020 10:52 AM CST I usually order blood and urine tests....I will try to fax you the lab order. * Telephone Encounter - Patricia Lorenzo MA - 09/29/2020 9:17 AM CST Pt would like to get labs done tomorrow at [place]. Please complete form and I can fax it. She asks me to let her know if it is blood and urine or just blood. documented in this encounter Plan of Treatment Not on file documented as of this encounter Visit Diagnoses Not on filedocumented in this encounter Care Teams Zipper Machine Operator Relationship Specialty Start Date End Date Diana Mao MD PCP - General Geriatric Medicine 02/20/19 documented as of this encounter
--- OUTSIDE RECORDS SUMMARY | 2024-10-15 16:38 | XMS_ITS | Encounter Summary ---
Author Organization [facility] Address [address] [place] [address] Phone Care Team Providers Care Rigging Supervisor Name Role Phone Diana Mao MD Primary Care Provider Unavail able Encounter Details Date Type Department Care Team (Late st Contact Info) Description 10/07/2020 Telephone [facility] Nephrology and Hypertension [address] [facility], [address] [place] [address] Patricia Lorenzo MA Social History Tobacco Use [...] Telephone Encounter - Leticia Reyes MD - 10/09/2020 9:16 AM CST I filled out new labs to be mailed -- will send it with Mary (here with me in [place]). Thanks. * Telephone Encounter - Patricia Lorenzo MA - 10/07/2020 2:00 PM CST Pt already did labs but had to cancel 10-08-2020 appt. She will come 12-11-2020. Please advise if youwant labs for that 12-11-2020 visit. documented in this encounter Plan of Treatment Not on file documented as of this encounter Visit Diagnoses Not on filedocumented in this encounter Care Teams Rigging Supervisor Relationship Specialty Start Date End Date Diana Mao MD PCP - General Geriatric Medicine 02/20/19 documented as of this encounter
--- OUTSIDE RECORDS SUMMARY | 2024-10-15 16:38 | XMS_ITS | Encounter Summary ---
Author Organization [facility] Address [address] [place] [address] Phone Care Team Providers Care Ground Support Equipment Fitter Name Role Phone Diana Mao MD Primary Care Provider Unavail able Encounter Details Date Type Department Care Team (Late st Contact Info) Description 08/08/2019 3:30 PM CDT Office Visit [facility] Nephrology and Hypertension [address] [place] [address], [address] [place] [address] Leticia Reyes MD [address] [facility], [address] [place] [address] Chronic kidney disease stage 3 (CMS-HCC); Hypertensive renal disease; Other proteinuria; Hypokalemia Social History Tobacco Use Types Packs/Day Years [...] Sign Reading Time Taken Comments Blood Pressure 134/78 08/08/2019 3:22 PM CDT Pulse - - Temperature 36.4 ??C (97.6 ??F) 08/08/2019 3:22 PM CD T Respiratory Rate - - Oxygen Saturation - - Inhaled Oxygen Concentration - - Weight 79.8 kg (176 lb) 08/08/2019 3:22 PM CDT Height 170.2 cm (5' 7 ) 08/08/2019 3:22 PM CDT Body Mass Index 27.57 08/08/2019 3:22 PM CDT documented in this encounter Progress Notes * Leticia Reyes MD - 08/08/2019 3:30 PM CDT FOLLOW-UP OFFICE VISIT Patient: Kirsty Rea Birthdate: 1940 PCP: Diana Mao MD Visit Date: 08/08/2019 INTERIM HISTORY Kirsty Rea is here for follow-up regarding her hypertension, renal insufficiency, and lower extremity edema. Since last seen, she seems to be feeling failry well. No new issues or problems voiced at this time. No distress or new concerns to report at this time. Past medical history, social history and familyhistory has not changed since previous visit. ALLERGIES Allergen Reactions ??? Ramipril kidney damage MEDICATIONS Current Outpatient Medications: ??? aspirin (ST ZENIA) 81 MG EC tablet, bid, Disp: , Rfl: 0 ??? furosemide (LASIX) 20 MG tablet, 1 tab/cap qday, Disp: , Rfl: 3 ??? hydroCHLOROthiazide (HYDRODIURIL) 12.5 MG tablet, Take 1 tablet (12.5 mg total) by mouth 1 (one) time each day., Disp: 30 tablet, Rfl: 3 ??? labetalol (NORMODYNE) 200 MG tablet, Take 1 tablet (200 mg total) by mouth 2 (two) times a day., Disp: 60 tablet, Rfl: 3 ??? Multiple Vitamin (MULTIVITAMIN) capsule, 1 po qd, Disp: , Rfl: 0 ??? NIFEdipine CC (ADALAT CC) 90 MG 24 hr tablet, Take 1 tablet (90 mg total) by mouth 1 (one) timeeach day., Disp: 30 tablet, Rfl: 3 ??? potassium chloride (K-TAB) 20 MEQ CR tablet, 1 QD, Disp: , Rfl: 3 REVIEW OF SYSTEMS Constitutional: No fever, weight loss or gain, no fatigue. No loss of appetite. Cardiovascular: No chest pain. No Orthopnea, PND. Respiratory: No cough, no sputum production, no SOB or BLANDON. : No dysuria or gross hematuria. No frequency or urgency. No nocturia. Skin: No rash or itching. VITALS BP 134/78 (BP Location: Right arm, Patient Position: Sitting) Temp 97.6 ??F (36.4 ??C) Ht 5' 7 (1.702 m) Wt 176 lb (79.8 kg) BMI 27.57 kg/m?? BSA 1.94 m?? PHYSICAL EXAM General: Comfortable and in no acute distress Cardiovascular: Normal S1, S2; no rub Respiratory: Clear bilaterally Abdominal: Soft, non-tender, non-distended; positive bowel sounds Extremities: No cyanosis, clubbing, or edema Skin: Warm and dry RECENT LABS/IMAGING Lab Results Component Value Date BUN 44 07/04/2019 CREATININE 1.8 07/04/2019 EGFR 27 07/04/2019 NA 132 07/04/2019 K 3.0 07/04/2019 CL 94 07/04/2019 CO2 28 07/04/2019 CA 9.0 07/04/2019 PHOSPHATE 3.9 07/04/2019 ALBUMIN 3.9 07/04/2019 GLUCOSE 105 07/04/2019 PROTCREATUR 508 07/12/2019 PTH 136 07/04/2019 25HYDRO 48.2 07/04/2019 07/21/15 Renal U/S: right kidney 9.8cm, left kidney 10.1cm; no hydronephrosis ASSESSMENT AND PLAN 1. Chronic kidney disease stage 3 (CMS-HCC) 2. Hypertensive renal disease 3. Other proteinuria 4. Hypokalemia Ms. Rea has renal insufficiency due to her age and hypertension. It seems her creatinine seems to fluctuate ~ 1.1 - 1.8mg/dl; her renal ultrasound is normal. To help reduce the rate of kidney [...] also decrease hormones that cause scar formation. Of note, she does have a living will and POA at this time. Blood Pressure for this visit is 134/78. Follow up plan to address blood pressure is continue current medications. Body mass index is 27.57 kg/m??. Follow up plan to address BMI is no intervention. Continue current medications Repeat labs prior to next visit and in 3 months Carmela Wills MD documented in this encounter Plan of Treatment Not on file documented as of this encounter Visit Diagnoses Diagnosis Chronic kidney disease stage 3 (CMS-HCC) Hypertensive renal disease Other proteinuria Hypokalemia documented in this encounter Care Teams Ground Support Equipment Fitter Relationship Specialty Start Date End Date Diana Mao MD PCP - General Geriatric Medicine 02/20/19 documented as of this encounter
--- OUTSIDE RECORDS SUMMARY | 2024-10-15 16:38 | XMS_ITS | Encounter Summary ---
Author Organization [facility]o Address [address] [place] [address] Phone Care Team Providers Care Buttonhole Maker Name Role Phone Diana Mao MD Primary Care Provider Unavail able Encounter Details Date Type Department Care Team (Late st Contact Info) Description 03/18/2020 Telephone [facility] Nephrology and Hypertension [address] [facility], [address] [place] [address] Jackson Mari MA Social History Tobacco Use [...] Telephone Encounter - Leticia Reyes MD - 03/19/2020 6:16 PM CDT Called but only able to get voicemail -- left detailed message regarding labs results and the fact that her kidney function/creatinine is back to baseline with instruction to call office again or exchange if further questions. * Telephone Encounter - Jackson Mari MA - 03/18/2020 11:31 AM CDT Pt called to let you know she finished her labs last Tuesday and would you give her a call to discuss documented in this encounter Plan of Treatment Not on file documented as of this encounter Visit Diagnoses Not on filedocumented in this encounter Care Teams Buttonhole Maker Relationship Specialty Start Date End Date Diana Mao MD PCP - General Geriatric Medicine 02/20/19 documented as of this encounter
--- OUTSIDE RECORDS SUMMARY | 2024-10-15 16:38 | XMS_ITS | Encounter Summary ---
Author Organization [facility] Address [address] [place] [address] Phone Care Team Providers Care Pig Casting Machine Operator Name Role Phone Diana Mao MD Primary Care Provider Unavail able Encounter Details Date Type Department Care Team (Late st Contact Info) Description 07/01/2022 Telephone [facility] Nephrology and Hypertension [facility]4 [facility], [address] [place] [address] Leticia Reyes MD [address] [facility], SUITE [facility] [place] [address] Social History Tobacco Use Types Packs/Day Years [...] Telephone Encounter - Luisana Dan - 07/01/2022 4:15 PM CDT spk to pt - Let her know RX were ordered. Voiced understanding * Telephone Encounter - Leticia Reyes MD - 07/01/2022 3:18 PM CDT Done * Telephone Encounter - Luisana Dan - 07/01/2022 2:07 PM CDT spk w/ pt - Changed insurance Asking to have scripts sent to [facility] [place] - in chart- Needs Rx: Nifedipine, HTCZ and Labetalol Has only 7 days left Thank you documented in this encounter Plan of Treatment Not on file documented as of this encounter Visit Diagnoses Not on filedocumented in this encounter Care Teams Pig Casting Machine Operator Relationship Specialty Start Date End Date Diana Mao MD PCP - General Geriatric Medicine 02/20/19 documented as of this encounter
--- OUTSIDE RECORDS SUMMARY | 2024-10-15 16:38 | XMS_ITS | Encounter Summary ---
Author Organization [facility]o Address [address] [place] [address] Phone Care Team Providers Care Physics Tutor Name Role Phone Unavailable Primary Care Provider Unavailabl e Encounter Details Date Type Department Care Team (Late st Contact Info) Description 06/14/2017 Legacy Encounter - Labs HISTORICAL CONVERSION CENTRAL [address] [place] [address], [place] [address] Leticia Reyes MD [facility]4 [facility], SUITE [facility] [place] [address] Social History Tobacco Use Types Packs/Day Years [...] Associated Diagnosis Comments MANUALLY ENTERED ORDER Routine 06/14/2017 12:00 AM CDT documented in this encounter Results * Manually Entered Order (06/14/2017 12:00 AM CDT) Blood Urea Nitrogen (BUN) 19 7 - 25 EXTERNAL LAB Creatinine 1.0 0.7 - 1.25 EXTERNAL LAB Sodium, Serum/Plasma 137 135 - 146 EXTERNAL LAB Potassium 4.0 3.5 - 5.3 EXTERNAL LAB Chloride, Urine 100 98 - 110 EXTERNAL LAB CO2 26 21 - 33 EXTERNAL LAB CALCIUM 9.6 8.6 - 10.3 EXTERNAL LAB Estimated Glomerular Filtration Rate (eGFR) 54 EXTERNAL LAB 06/14/2017 Leticia Reyes MD LAB BLOOD ORDERABLES EXTERNAL LAB documented in this encounter Visit Diagnoses Not on filedocumented in this encounter
--- OUTSIDE RECORDS SUMMARY | 2024-10-15 16:38 | XMS_ITS | Encounter Summary ---
Author Organization [facility]o Address [address] [place] [address] Phone Care Team Providers Care Stadium Manager Name Role Phone Diana Mao MD Primary Care Provider Unavail able Encounter Details Date Type Department Care Team (Late st Contact Info) Description 02/21/2019 Orders Only [facility] Nephrology and Hypertension [address] [place] [address], [address] [place] [address] Leticia Reyes MD [address] [facility], [address] [place] [address] Social History Tobacco Use Types Packs/Day Years [...] on filedocumented in this encounter Care Teams Stadium Manager Relationship Specialty Start Date End Date Diana Mao MD PCP - General Geriatric Medicine 02/20/19 documented as of this encounter
--- OUTSIDE RECORDS SUMMARY | 2024-10-15 16:38 | XMS_ITS | Encounter Summary ---
Author Organization [facility]o Address [address] [place] [address] Phone Care Team Providers Care Network Contractor Name Role Phone Diana Mao MD Primary Care Provider Unavail able Encounter Details Date Type Department Care Team (Late st Contact Info) Description 03/22/2022 Telephone [facility] Nephrology and Hypertension [address] [facility], [address] [place] [address] Mary Lorenzo RN Social History Tobacco Use [...] * Telephone Encounter - Luisana Dan - 03/25/2022 12:21 PM CDT Lab req mailed T * Telephone Encounter - Leticia Reyes MD - 03/25/2022 11:49 AM CDT Done T * Telephone Encounter - Luisana Dan - 03/24/2022 10:57 AM CDT PT CB - schld appt for 06/30 Needs lab req mailed It's on your chair * Telephone Encounter - Mary Lorenzo RN - 03/22/2022 9:00 AM CDT Pt LMOR to schedule an appt. Returned pt's call- NA/MORENITAM documented in this encounter Plan of Treatment Not on file documented as of this encounter Visit Diagnoses Not on filedocumented in this encounter Care Teams Network Contractor Relationship Specialty Start Date End Date Diana Mao MD PCP - General Geriatric Medicine 02/20/19 documented as of this encounter
--- OUTSIDE RECORDS SUMMARY | 2024-10-15 16:38 | XMS_ITS | Encounter Summary ---
Author Organization [facility] Address [address] [place] [address] Phone Care Team Providers Care Spring Encaser Name Role Phone Unavailable Primary Care Provider Unavailabl e Encounter Details Date Type Department Care Team (Late st Contact Info) Description 04/27/2018 Legacy Encounter - Labs HISTORICAL CONVERSION CENTRAL [address] [place] [address], [place] [address] Leticia Reyes MD [facility]4 [address] [facility], SUITE [facility]0 [place] [address] Social History Tobacco Use Types Packs/Day Years [...] Associated Diagnosis Comments MANUALLY ENTERED ORDER Routine 04/27/2018 12:00 AM CDT documented in this encounter Results * (ABNORMAL) Manually Entered Order (04/27/2018 12:00 AM CDT) Protein/Creati nine, Urine 1,156(H) 22 - 128 EXTERNAL LAB 04/27/2018 Leticia Reyes MD LAB BLOOD ORDERABLES EXTERNAL LAB documented in this encounter Visit Diagnoses Not on filedocumented in this encounter
--- OUTSIDE RECORDS SUMMARY | 2024-10-15 16:38 | XMS_ITS | Encounter Summary ---
Author Organization [facility] Address [address] [place] [address] Phone Care Team Providers Care Controlled Area Checker Name Role Phone Diana Mao MD Primary Care Provider Unavail able Reason for Visit * Reason Comments Med Refill Encounter Details Date Type Department Care Team (Late st Contact Info) Description 02/01/2021 Refill [facility] Nephrology and Hypertension [address] [place] [address], [address] [place] [address] Leticia Reyes MD [address] [facility], [address] [place] [address] Social History Tobacco Use Types Packs/Day Years [...] on filedocumented in this encounter Care Teams Controlled Area Checker Relationship Specialty Start Date End Date Diana Mao MD PCP - General Geriatric Medicine 02/20/19 documented as of this encounter
--- OUTSIDE RECORDS SUMMARY | 2024-10-15 16:38 | XMS_ITS | Encounter Summary ---
Author Organization [facility] Address [address] [place] [address] Phone Care Team Providers Care Grade Setter Name Role Phone Diana Mao MD Primary Care Provider Unavail able Encounter Details Date Type Department Care Team (Late st Contact Info) Description 02/21/2019 11:15 AM CDT Office Visit [facility] Nephrology and Hypertension [address] [place] [address], [address] [place] [address] Leticia Liz MD [address] [facility], [address] [place] [address] Chronic kidney disease stage 3 (CMS-HCC); Hypertensive renal disease; Other proteinuria; Localized edema Social History Tobacco Use Types Packs/Day Years [...] Reading Time Taken Comments Blood Pressure 132/70 02/21/2019 11:00 AM CDT Pulse - - Temperature 36.2 ??C (97.1 ??F) 02/21/2019 11:00 AM C DT Respiratory Rate - - Oxygen Saturation - - Inhaled Oxygen Concentration - - Weight 79.4 kg (175 lb) 02/21/2019 11:00 AM CDT Height 170.2 cm (5' 7 ) 02/21/2019 11:00 AM CDT Body Mass Index 27.41 02/21/2019 11:00 AM CDT documented in this encounter Progress Notes * Leticia Liz MD - 02/21/2019 11:15 AM CDT FOLLOW-UP OFFICE VISIT Patient: Kirsty Rea Birthdate: 1940 PCP: Diana Mao MD Visit Date: 02/21/2019 INTERIM HISTORY Kirsty Rea is here for [...] Disp: , Rfl: 3 ??? hydroCHLOROthiazide (HYDRODIURIL) 25 MG tablet, 1 po qd, Disp: , Rfl: 0 ??? labetalol (NORMODYNE) 200 MG tablet, bid, Disp: , Rfl: 0 ??? Multiple Vitamin (MULTIVITAMIN) capsule, 1 po qd, Disp: , Rfl: 0 ??? NIFEdipine CC (ADALAT CC) 90 MG 24 hr tablet, 1 po qd, Disp: , Rfl: 0 ??? potassium chloride (K-TAB) 20 MEQ CR tablet, 1 QD, Disp: , Rfl: 3 REVIEW OF SYSTEMS Review of Systems Constitutional: Negative for appetite change, fatigue, fever and unexpected weight change. Respiratory: Negative for cough and shortness of breath. Cardiovascular: Negative for chest pain and leg swelling. Genitourinary: Negative for dysuria, frequency, hematuria and urgency. Skin: Negative for rash and wound. VITALS BP 132/70 Temp 97.1 ??F (36.2 ??C) Ht 5' 7 (1.702 m) Wt 175 lb (79.4 kg) BMI 27.41 kg/m?? BSA 1.94 m?? PHYSICAL EXAM Physical Exam Constitutional: She appears well-developed and well-nourished. No distress. Cardiovascular: Normal heart sounds. Exam reveals no friction rub. Pulmonary/Chest: Effort normal and breath sounds normal. Abdominal: Soft. Bowel sounds are normal. Musculoskeletal: She exhibits no edema. Skin: Skin is warm and dry. No rash noted. RECENT LABS/IMAGING Component Units 02/08/19 Albumin g/L 4.3 Calcium mg/dL 9.8 Carbon dioxide mmol/L 25 Chloride mmol/L 99 Creatinine mg/dL 1.5 Phosphate mg/dL 5.1 Potassium mmol/L 3.7 Sodium mmol/L 136 Urea nitrogen mg/dL 43 GFR-nonAA mL/min 34 Protein/Creatinine mg/g creatinine 1377 07/21/15 Renal U/S: right kidney 9.8cm, left kidney 10.1cm; no hydronephrosis ASSESSMENT AND PLAN 1. Chronic kidney disease stage 3 2. Hypertensive renal disease 3. Other proteinuria 4. Localized edema Ms. Rea had an elevated creatinine -- given all evidence to date, I suspect she has some mild renal insufficiency due to her age and hypertension. It seems her creatinine seems to fluctuate ~ 1.1 - 1.6mg/dl; her renal ultrasound is normal. To help reduce the rate of kidney deterioration: Control BP: stable Control LDL cholesterol: will check Control Intact PTH: at goal Use NOY/ARB: [...] time. Blood Pressure for this visit is 132/70. Follow up plan to address blood pressure is continue current medications. Body mass index is 27.41 kg/m??. Follow up plan to address BMI is no intervention. Continue current medications Repeat labs prior to next visit LETICIA LIZ MD documented in this encounter Plan of Treatment Not on file documented as of this encounter Visit Diagnoses Diagnosis Chronic kidney disease stage 3 ([facility]-HCC) Hypertensive renal disease Other proteinuria Localized edema documented in this encounter Care Teams Grade Setter Relationship Specialty Start Date End Date Diana Mao MD PCP - General Geriatric Medicine 02/20/19 documented as of this encounter
--- OUTSIDE RECORDS SUMMARY | 2024-10-15 16:38 | XMS_ITS | Encounter Summary ---
Author Organization [facility] Address [address] [place] [address] Phone Care Team Providers Care Compliance Administrator Name Role Phone Diana Mao MD Primary Care Provider Unavail able Encounter Details Date Type Department Care Team (Late st Contact Info) Description 07/01/2022 Orders Only [facility] Nephrology and Hypertension [employer], [address] [place] [address] Leticia Reyes MD [employer] [place] [facility] [place], [address] [place] [address] Social History Tobacco Use Types Packs/Day Years [...] on filedocumented in this encounter Care Teams Compliance Administrator Relationship Specialty Start Date End Date Diana Mao MD PCP - General Geriatric Medicine 02/20/19 documented as of this encounter
--- OUTSIDE RECORDS SUMMARY | 2024-10-15 16:38 | XMS_ITS | Encounter Summary ---
Author Organization [facility] Address [address] [place] [address] Phone Care Team Providers Care Construction And Maintenance Inspector Name Role Phone Diana Mao MD Primary Care Provider Unavail able Encounter Details Date Type Department Care Team (Late st Contact Info) Description 12/04/2020 Telephone [facility] Nephrology and Hypertension [address] [facility] [address], [address] [place] [address] Patricia Lorenzo MA Social History Tobacco Use [...] encounter Miscellaneous Notes * Telephone Encounter - Patricia Lorenzo MA - 12/04/2020 3:23 PM CST done * Telephone Encounter - Leticia Reyes MD - 12/04/2020 3:09 PM CST I could not find labs done a week ago but she did some labs in Oct 2020 and those should be sufficient for her Dec 2020 appointment. Thanks. * Telephone Encounter - Patricia Lorenzo MA - 12/04/2020 1:35 PM CST Pt had labs done one week ago at [facility] and asks if they will be sufficient for her 12-11-2020 appt. documented in this encounter Plan of Treatment Not on file documented as of this encounter Visit Diagnoses Not on filedocumented in this encounter Care Teams Construction And Maintenance Inspector Relationship Specialty Start Date End Date Diana Mao MD PCP - General Geriatric Medicine 02/20/19 documented as of this encounter
--- OUTSIDE RECORDS SUMMARY | 2024-10-15 16:38 | XMS_ITS | Encounter Summary ---
Author Organization [facility] Address [address] [place] [address] Phone Care Team Providers Care Tax Agent Name Role Phone Diana Mao MD Primary Care Provider Unavail able Encounter Details Date Type Department Care Team (Late st Contact Info) Description 07/22/2022 [facility] Nephrology and Hypertension [address] [facility] [facility] [place] [address] Mary Lorenzo RN Social History Tobacco Use [...] Telephone Encounter - Leticia Reyes MD - 07/27/2022 6:56 AM CDT LATE ENTRY: reviewed results of renal biopsy with patient -- evidence of hypertensive nephrosclerosis with no acute issues/findings; hence proteinuria and worsening CKD likely a manifestation of kidney disease progression. * Telephone Encounter - Mary Lorenzo RN - 07/22/2022 1:27 PM CDT Please call pt with renal bx results documented in this encounter Plan of Treatment Not on file documented as of this encounter Visit Diagnoses Not on filedocumented in this encounter Care Teams Tax Agent Relationship Specialty Start Date End Date Diana Mao MD PCP - General Geriatric Medicine 02/20/19 documented as of this encounter
--- OUTSIDE RECORDS SUMMARY | 2024-10-15 16:38 | XMS_ITS | Encounter Summary ---
Author Organization [facility] Address [address] [place] [address] Phone Care Team Providers Care Product Managent Intern Name Role Phone Diana Mao MD Primary Care Provider Unavail able Encounter Details Date Type Department Care Team (Late st Contact Info) Description 04/06/2022 Telephone [facility] Nephrology and Hypertension [address] [facility], [address] [place] [address] Mary Lorenzo RN Social History Tobacco Use [...] Telephone Encounter - Mary Lorenzo RN - 04/07/2022 9:03 AM CDT LMOR informing pt of STSK's response * Telephone Encounter - Leticia Reyes MD - 04/06/2022 9:45 PM CDT Would recommend Dr. Ordonez or Dr. Holden at [facility] but agree that her PCP may have some other recommendations. * Telephone Encounter - Mary Lorenzo RN - 04/06/2022 12:42 PM CDT Pt called looking for a referral to GI doctor. Encouraged pt to call her pcp for a referral. Pt stated she wanted to speak to STK and get the referral from him. Pt informed a estevan would be sent but pt still encouraged to call her pcp. Pt hung up. Pt has not been seen since last march documented in this encounter Plan of Treatment Not on file documented as of this encounter Visit Diagnoses Not on filedocumented in this encounter Care Teams Product Managent Intern Relationship Specialty Start Date End Date Diana Mao MD PCP - General Geriatric Medicine 02/20/19 documented as of this encounter
--- OUTSIDE RECORDS SUMMARY | 2024-10-15 16:39 | XMS_ITS | Encounter Summary ---
Author Organization [facility] Address [address] [place] [address] Phone Care Team Providers Care Corporate Risk Analyst Name Role Phone Unavailable Primary Care Provider Unavailabl e Encounter Details Date Type Department Care Team (Late st Contact Info) Description 04/05/2017 [facility] Encounter - Labs HISTORICAL CONVERSION CENTRAL [address] [place] [address], [place] [address] Leticia Reyes MD [facility] [facility], [address] [facility] [place] [address] Social History Tobacco Use Types Packs/Day Years [...] Associated Diagnosis Comments MANUALLY ENTERED ORDER Routine 04/05/2017 12:00 AM CDT documented in this encounter Results * (ABNORMAL) Manually Entered Order (04/05/2017 12:00 AM CDT) Blood Urea Nitrogen (BUN) 40(H) 7 - 25 EXTERNAL LAB Creatinine 1.6(H) 0.7 - 1.25 EXTERNAL LAB Sodium, Serum/Plasma 131(L) 135 - 146 EXTERNAL LAB Potassium 3.7 3.5 - 5.3 EXTERNAL LAB Chloride, Urine 91(L) 98 - 110 EXTERNAL LAB CO2 25 21 - 33 EXTERNAL LAB CALCIUM 9.4 8.6 - 10.3 EXTERNAL LAB PHOSPHORUS 4.7(H) 2.1 - 4.3 EXTERNAL LAB Albumin 4.1 3.6 - 5.1 EXTERNAL LAB Estimated Glomerular Filtration Rate (eGFR) 31 EXTERNAL LAB Protein/Creatin ine, Urine 743(H) 22 - 128 EXTERNAL LAB 04/05/2017 Leticia Reyes MD LAB BLOOD ORDERABLES EXTERNAL LAB documented in this encounter Visit Diagnoses Not on filedocumented in this encounter
--- OUTSIDE RECORDS SUMMARY | 2024-10-15 16:39 | XMS_ITS | Encounter Summary ---
Author Organization [facility] Address [address] [place] [address] Phone Care Team Providers Care Retail Wireless Associate Name Role Phone Unavailable Primary Care Provider Unavailabl e Encounter Details Date Type Department Care Team (Late st Contact Info) Description 12/03/2015 [facility] Encounter - Labs HISTORICAL CONVERSION CENTRAL [address] [place] [address], [place] [address] Leticia Reyes MD [facility]4 [facility], SUITE [facility] [place] [address] Social History Tobacco Use Types Packs/Day Years [...] Associated Diagnosis Comments MANUALLY ENTERED ORDER Routine 12/03/2015 12:00 AM SALES OFFICE COORDINATOR documented in this encounter Results * (ABNORMAL) Manually Entered Order (12/03/2015 12:00 AM SALES OFFICE COORDINATOR) Blood Urea Nitrogen (BUN) 39(H) 7 - 25 EXTERNAL LAB Creatinine 1.1 0.7 - 1.25 EXTERNAL LAB Sodium, Serum/Plasma 130(L) 135 - 146 EXTERNAL LAB Potassium 3.7 3.5 - 5.3 EXTERNAL LAB Chloride, Urine 94(L) 98 - 110 EXTERNAL LAB CO2 27 21 - 33 EXTERNAL LAB CALCIUM 9.4 8.6 - 10.3 EXTERNAL LAB PHOSPHORUS 4.6(H) 2.1 - 4.3 EXTERNAL LAB Albumin 4.1 3.6 - 5.1 EXTERNAL LAB Estimated Glomerular Filtration Rate (eGFR) 49 EXTERNAL LAB Protein/Creatin ine, Urine 512(H) 22 - 128 EXTERNAL LAB 12/03/2015 Leticia Reyes MD LAB BLOOD ORDERABLES EXTERNAL LAB documented in this encounter Visit Diagnoses Not on filedocumented in this encounter
--- OUTSIDE RECORDS SUMMARY | 2024-10-15 16:39 | XMS_ITS | Encounter Summary ---
Author Organization [facility] Address [address] [place] [address] Phone Care Team Providers Care Field Sales Engineer Name Role Phone Unavailable Primary Care Provider Unavailabl e Encounter Details Date Type Department Care Team (Late st Contact Info) Description 04/07/2016 [facility] Encounter - Labs HISTORICAL CONVERSION CENTRAL [address] [place] [address], [place] [address] Leticia Reyes MD [employer], SU[address] [facility] [place] [address] Social History Tobacco Use Types Packs/Day Years [...] Associated Diagnosis Comments MANUALLY ENTERED ORDER Routine 04/07/2016 12:00 AM CDT documented in this encounter Results * (ABNORMAL) Manually Entered Order (04/07/2016 12:00 AM CDT) Blood Urea Nitrogen (BUN) 39(H) 7 - 25 EXTERNAL LAB Creatinine 1.4(H) 0.7 - 1.25 EXTERNAL LAB Sodium, Serum/Plasma 134(L) 135 - 146 EXTERNAL LAB Potassium 3.3(L) 3.5 - 5.3 EXTERNAL LAB Chloride, Urine 95(L) 98 - 110 EXTERNAL LAB CO2 30 21 - 33 EXTERNAL LAB CALCIUM 9.4 8.6 - 10.3 EXTERNAL LAB PHOSPHORUS 4.4(H) 2.1 - 4.3 EXTERNAL LAB Albumin 4.3 3.6 - 5.1 EXTERNAL LAB Estimated Glomerular Filtration Rate (eGFR) 37 EXTERNAL LAB Protein/Creatin ine, Urine 360(H) 22 - 128 EXTERNAL LAB 04/07/2016 Leticia Reyes MD LAB BLOOD ORDERABLES EXTERNAL LAB documented in this encounter Visit Diagnoses Not on filedocumented in this encounter
--- OUTSIDE RECORDS SUMMARY | 2024-10-15 16:39 | XMS_ITS | Encounter Summary ---
Author Organization [facility] Address [address] [place] [address] Phone Care Team Providers Care Dentures Lab Technician Name Role Phone Unavailable Primary Care Provider Unavailabl e Encounter Details Date Type Department Care Team (Late st Contact Info) Description 08/04/2016 Legacy Encounter - Labs HISTORICAL CONVERSION CENTRAL [address] [place] [address], [place] [address] Leticia Reyes MD [facility]4 [facility], SUITE [facility] [place] [address] Social History Tobacco Use Types Packs/Day Years [...] Associated Diagnosis Comments MANUALLY ENTERED ORDER Routine 08/04/2016 12:00 AM CDT documented in this encounter Results * (ABNORMAL) Manually Entered Order (08/04/2016 12:00 AM CDT) Blood Urea Nitrogen (BUN) 34(H) 7 - 25 EXTERNAL LAB Creatinine 1.5(H) 0.7 - 1.25 EXTERNAL LAB Sodium, Serum/Plasma 132(L) 135 - 146 EXTERNAL LAB Potassium 3.9 3.5 - 5.3 EXTERNAL LAB Chloride, Urine 91(L) 98 - 110 EXTERNAL LAB CO2 28 21 - 33 EXTERNAL LAB CALCIUM 9.7 8.6 - 10.3 EXTERNAL LAB PHOSPHORUS 5.5(H) 2.1 - 4.3 EXTERNAL LAB Albumin 4.0 3.6 - 5.1 EXTERNAL LAB Estimated Glomerular Filtration Rate (eGFR) 34 EXTERNAL LAB Protein/Creatin ine, Urine 1,218(H) 22 - 128 EXTERNAL LAB 08/04/2016 Leticia Reyes MD LAB BLOOD ORDERABLES EXTERNAL LAB documented in this encounter Visit Diagnoses Not on filedocumented in this encounter
--- OUTSIDE RECORDS SUMMARY | 2024-10-15 16:39 | XMS_ITS | Encounter Summary ---
Author Organization [facility] Address [address] [place] [address] Phone Care Team Providers Care Web Site Designer Name Role Phone Unavailable Primary Care Provider Unavailabl e Encounter Details Date Type Department Care Team (Late st Contact Info) Description 08/11/2015 Legacy Encounter - Labs HISTORICAL CONVERSION CENTRAL [address] [place] [address], [place] [address] [facility]4 [facility], SUITE [facility] [place] [address] Social History Tobacco Use Types Packs/Day Years [...] Associated Diagnosis Comments MANUALLY ENTERED ORDER Routine 08/11/2015 12:00 AM CDT documented in this encounter Results * (ABNORMAL) Manually Entered Order (08/11/2015 12:00 AM CDT) Blood Urea Nitrogen (BUN) 47(H) 7 - 25 EXTERNAL LAB Creatinine 1.62(H) 0.7 - 1.25 EXTERNAL LAB Sodium, Serum/Plasma 140 135 - 146 EXTERNAL LAB Potassium 3.7 3.5 - 5.3 EXTERNAL LAB Chloride, Urine 98 98 - 110 EXTERNAL LAB CO2 23 21 - 33 EXTERNAL LAB CALCIUM 9.6 8.6 - 10.3 EXTERNAL LAB PHOSPHORUS 5.4(H) 2.1 - 4.3 EXTERNAL LAB Albumin 4.7 3.6 - 5.1 EXTERNAL LAB Estimated Glomerular Filtration Rate (eGFR) 32 EXTERNAL LAB Protein/Creatin ine, Urine 230(H) 22 - 128 EXTERNAL LAB Sodium, Urine 40 EXTERNAL LAB CREATININE RANDOM URINE 76 EXTERNAL LAB Chloride, Urine 35 EXTERNAL LAB 08/11/2015 Leticia Reyes MD LAB BLOOD ORDERABLES EXTERNAL LAB documented in this encounter Visit Diagnoses Not on filedocumented in this encounter
[2024-10-15] MEDS: MORPHINE SULFATE (*CRX) 2 MG/ML INJ IV PUSH ×2 (17:18→21:52)
--- NOTE | 2024-10-15 23:14 | PC.NURSE ---
This patient, Kirsty Rea, was transferred to [[id number] ] on 10/15/24 at 2235. Personal belongings sent with patient. Report given to [ Adina aleman]. Appropriate documentation sent with patient.
--- NOTE | 2024-10-15 23:19 | PC.NURSE ---
pt recieved from Jossy BOSS in [place] approx [phone]
--- OUTSIDE RECORDS SUMMARY | 2024-10-16 00:27 | XMS_ITS | Encounter Summary ---
Author Organization [facility] Address [address] [place] [address] Care Team Providers Care Rougher Merchant Mill Name Role Phone Yanira Meyers TELEGRAPH EDITOR-INSURANCE SALESPERSON Primary Care Provid er Reason for Referral * (Routine) - Open Specialty Diagnoses / Procedures Referred By Abena torrez Referred To Contact Vascular Lab Procedures Follow up with provider Armando Ferro DO [facility] [address] [address] [facility] [address] [place] [address], [address] [place] [address] Referral ID Status Reason Start Date Expiration Date Visits Re quested Visits Authorized [id number] Open 08/16/2024 08/16/2025 1 1 Reason for Visit * Radiology Services (Routine) - Closed Specialty Diagnoses / Procedures Referred By Abena torrez Referred To Contact Vascular Lab Diagnoses ESRD (end stage renal disease) (HCC) Procedures IR ANGIO AV SHUNT IMAGING Jarett Reinoso MD [address] [place] [address] [facility] [address] [place] [address], [address] [place] [address] Referral ID Status Reason Start Date Expiration Date Visits Re quested Visits Authorized [id number] Closed 11/09/2023 11/08/2024 1 1 Encounter Details Date Type Department Care Team (Latest Contact Info) Description 08/16/2024 9:21 AM CDT - 08/16/2024 11:59 PM CDT Hospital Encounter [facility] Vascular Services [address] [facility], [facility] [address] [place] [address] Jarett Reinoso MD [address] [place], [place] [id number] Christine Benitez MD [address] [place] [address] Keyshawn Krueger MD [address] [place], [place] [id number] [place] [address] [phone] Discharge Disposition: Home or Self [...] kidney disease) stage 3, GFR 30-59 ml/min ([facility]) proteinuria; Oral And Maxillofacial Surgery = Dr. 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 Ferro Home Service Advisor: Vascular institute Staff Procedure: Left upper extremity [...] needle. Using Seldinger technique a short 6 Luxembourger sheath was advanced into the left upper [...] procedure answered in detail. Armando Ferro DO [facility] [employer] Phone: Exchange: [phone] documented in this encounter Plan of Treatment Upcoming Encounters Date Type Department Care Team (Late st Contact Info) Description 12/11/2024 10:30 AM VISITOR SERVICES TECHNICIAN Appointment [facility] Health Vascular Services [address] [facility], [facility] [address] [place] [address] Jarett Reinoso MD [address] [place], [place] [id number] Christine Benitez MD [address] [place] [phone] Keyshawn Krueger MD [address] [place] [address] Armando Ferro, [address] [place] [phone] Pending Results Name Type Priority Associated Diagnoses Date /Time IR ANGIO AV SHUNT IMAGING Imaging Routine ESRD (end stage renal disease) ([facility]) 08/16/2024 10:42 AM CDT documented as of [...] mg documented in this encounter Care Teams R[employer]her [employer]chant Mill Relationship Specialty Start Date End Date Yanira Meyers, DOUGIE-INSURANCE SALESPERSON [address] [place] [phone] PCP - General Nurse Practitioner Family 06/15/23 documented as of this encounter
--- OUTSIDE RECORDS SUMMARY | 2024-10-16 00:27 | XMS_ITS | Clinical Summary ---
Author Organization [facility] Address [address] [facility] [place] [address] Care Team Providers Care Band Sewer Name Role Phone RuizkyrieYanira NOTEREADER-SHIFT LAB TECHNICIAN Primary Care Provid er Source Comments [facility],non-owned Affiliates and Associated Physician Practices is amultiple site organization consisting of ambulatory clinics and hospital sitesin [place], [place], [place] and [place]. This disclosure is being madepursuant to the Care Everywhere program and may not contain all information available regarding this patient. Last updated 18.Known Allergies Active Allergy Reactions Criticality Noted Date [...] - 08/16/2024 11:59 PM CDT Hospital Encounter [facility] Vascular Services [address] [facility], [address] [place] [id number] Jarett Reinoso MD Majeed, M. Fazal, MD [...] st Contact Info) Description 12/11/2024 10:30 AM DIGITAL MARKETING ASSOCIATE Appointment [facility] Health Vascular Services [address] [facility] [address] [place] [address] Jarett Reinoso MD [address] [place] [address] Christine Benitez MD [address] [place] [address] Keyshawn Krueger MD [address] [place] [address] [place] [address] [phone] Health Maintenance Due Date Last Done Comments [...] this topic Medical Devices Implanted Type Area Printing Specialist Device Identifier Shelf Expiration Date Model / Serial / Lot Kit Tamiko Drflw Embosafe Chrnc Dlys Implanted:Qty: 1 on 08/25/2022 at [facility] Right: Chest [employer] 11/30/2024 [id number] / / [id number] Graft Vasc 4-7mm 45cm Grtx Std Wl Tpr - [id number] Implanted:Qty: 1 on 06/15/2023 by Leland Thompson MD at [facility] Left: Arm [employer] 03/05/2028 [id number] / [id number] / Procedures Procedure Name Priority Date/Time Associated Diagnosis Comments CARDIAC RHYTHM STRIP ORDER 08/21/2024 4:38 PM CDT from Last 3 Months Results * CARDIAC RHYTHM STRIP ORDER (08/21/2024 4:38 PM CDT) Narrative 08/21/2024 4:38 PM CDT Ordered by an unspecified provider. Scanned Document CARDIAC SERVICES ORD ERABLES from Last 3 Months Advance Directives Documents on File Type Date Recorded Patient Assistant Portfolio Manager Expl anation Adv Directive/Living Will/POA 09/03/2022 11:51 AM Adv Directive/Living Will/POA 08/27/2022 5:38 PM * Full Code (Latest Code Status on File) Date Activated Date Inactivated Comments 09/30/2023 12:06 AM 10/05/2023 3:27 PM * Full Code Date Activated Date Inactivated Comments 08/15/2022 3:11 AM 09/09/2022 7:35 PM Care Teams Band Sewer Relationship Specialty Start Date End Date Yanira Meyers, NOTEREADER-SHIFT LAB TECHNICIAN [address] [place] [phone] PCP - General Nurse Practitioner Family 06/15/23
--- OUTSIDE RECORDS SUMMARY | 2024-10-16 00:27 | XMS_ITS | Patient Health Summary ---
Author Organization [facility] Address [address] [place] [address] Care Team Providers Care Resident Physician In Radiology Name Role Phone Yanira Meyers CAREER ORIENTATION TEACHER-GREEN BELT Primary Care Provid er Note from [facility],non-owned Affiliates and Associated Physician Practices is amultiple site organization consisting of ambulatory clinics and hospital sitesin [place], [place], [place] and [place]. This disclosure is being madepursuant to the Care Everywhere program and may not contain all information available regarding this patient. Last updated 18.[facility] Allergies * Ramipril(Other) -Low Criticality Medications * [...] AM CDT Medical Devices Implanted Type Area Forensic Pathologist Device Identifier Shelf Expiration Date Model / Serial / Lot Kit Durathane Drflw Embosafe Chrnc Dlys Implanted:Qty: 1 on 08/25/2022 at [facility] Right: Chest [employer] 11/30/2024 [id number] / / [id number] Graft Vasc 4-7mm 45cm Grtx Std Wl Tpr - [id number] Implanted:Qty: 1 on 06/15/2023 by Leland Thompson MD at [facility] Left: Arm W L [place] [employer] 03/05/2028 [id number] / [id number] / Procedures * CARDIAC RHYTHM STRIP ORDER(Performed 08/21/2024) * CARDIAC RHYTHM STRIP ORDER(Performed 05/17/2024) * IR ANGIO AV SHUNT IMAGING(Performed 05/15/2024) Performed for ESRD (end stage renal disease) ([facility]) * CARDIAC RHYTHM STRIP ORDER(Performed 02/16/2024) * IR ANGIO AV SHUNT IMAGING(Performed 02/15/2024) Performed for ESRD (end stage renal disease) ([facility]) * CARDIAC RHYTHM STRIP ORDER(Performed 11/11/2023) * IR ANGIO AV SHUNT IMAGING(Performed 11/09/2023) Performed for ESRD (end stage renal disease) ([facility]) * ECHO COMPLETE W CONTRAST(Performed 10/05/2023) Performed for Subdural hematoma ([facility]) * CALCIUM IONIZED WHOLE BLOOD(Performed 10/05/2023) [...] ESRD (end stage renal disease) (HCC) * CA INSERT CANNULA,ART-GEORGINA,TRADE MARK ATTORNEY(Performed 06/15/2023) Performed for End-stage renal disease with need for long-term dialysis access * PERIPHERAL BLOCK(Performed 06/15/2023) * BASIC METABOLIC PANEL (CALCIUM TOTAL)(Performed 06/15/2023) Performed for Preop examination * BASIC METABOLIC PANEL (CALCIUM TOTAL)(Performed 04/11/2023) Performed for Preop examination * CARDIAC RHYTHM STRIP ORDER(Performed 04/08/2023) * VAS BILAT MAPPING FOR HEMODIALYSIS(Performed 03/31/2023) Performed for ESRD (end stage renal disease) ([facility]) * IR CENTRAL VENOUS CATH CHECK(Performed 03/31/2023) Performed for Hypertensive chronic kidney disease with stage 1 through stage 4 chronic kidney disease, or unspecified chronic kidney disease * CARDIAC RHYTHM STRIP ORDER(Performed 03/30/2023) * IR CENTRAL LINE REPLACE(Performed 03/23/2023) Performed for ESRD (end stage renal disease) ([facility]) * HEMODIALYSIS INPATIENT(Performed 09/08/2022) * RENAL [...] COMPREHENSIVE(Performed 09/29/2021) Performed for Urge incontinence * CA INSERT NON-INDWELLING BLADDER(Performed 09/29/2021) Performed for Urge incontinence * URINALYSIS AUTO - POINT OF CARE (AMB) [facility](Performed 09/29/2021) Performed for Urge incontinence * PATHOLOGY/CYTOLOGY REPORT ORDER(Performed 01/08/2021) * DERMATOPATHOLOGY(Performed 01/08/2021) * XR KNEE LEFT 3VW(Performed 07/30/2020) Performed for Acute pain of left knee * URINALYSIS W/MICROSCOPIC NO CULTURE(Performed 01/04/2020) Performed for CKD (chronic kidney disease) stage 4, GFR 15-29 ml/min ([facility]), Essential hypertension * CBC W AUTO DIFFERENTIAL(Performed 01/04/2020) Performed for CKD (chronic kidney disease) stage 4, GFR 15-29 ml/min ([facility]), Essential hypertension * VITAMIN B12(Performed 01/04/2020) [...] Notes Date: ??05/15/2024 Surgeon: Keyshawn Krueger MD Systems Integration Analyst: none Pre-Procedure diagnosis: ESRD; prolonged bleeding after [...] over the wire for a short 6 [place] sheath. ??Over the wire, peripheral venoplasty was [...] ECHO COMPLETE W CONTRAST (10/05/2023 10:41 AM GROUP CARE WORKER) BSA [id number] m2 [facility] CV FUJ I PACS LV [...] Index 32 ml/m2 [facility] CV FUJI PACS [id number] 6.504 cm [facility] CV FUJ I PACS [id number] 7.107 cm [facility] CV FUJ I PACS [...] Laterality Modality Ultrasound Narrative 10/05/2023 11:06 AM GROUP CARE WORKER ?Left??Ventricle: Left ventricle size is normal. Mildly [...] CALCIUM IONIZED WHOLE BLOOD (10/05/2023 6:07 AM GROUP CARE WORKER) Only the most recent of2 resultswithin the time period is included. Calcium Ionized 1.28 mmol/L 10/05/2023 6:16 AM [facility] pH 7.50(H) 7.35 - 7.45 pH 10/05/2023 6:16 AM [facility] Ionized Calcium pH Adjusted 1.33 1.19 - 1.34 mmol/L 10/05/2023 6:16 AM [facility] Blood BLOOD SPECIMEN / Unknown Lab Venipuncture / Unknown 10/05/2023 6:07 AM GROUP CARE WORKER 10/05/2023 6:12 AM GROUP CARE WORKER Rogelio Benitez MD LAB - CHEMISTRY PATRICIA CASIANO [facility] Organization Address City/State/ZIP Co de Phone Number [facility] [address] [place] [address], [facility] [phone] * (ABNORMAL) CBC W AUTO DIFFERENTIAL (10/05/2023 6:07 AM GROUP CARE WORKER) Only the most recent of9 resultswithin the time period is included. WBC 6.2 3.5 - 10.5 10? 3 /uL 10/05/2023 6:29 AM [facility] RBC 2.88(L) 3.80 - 5.20 10? 6 /uL 10/05/2023 6:29 AM [facility] Hemoglobin 8.4(L) 12.0 - 15.6 g/dL 10/05/2023 6:29 AM [facility] Hematocrit 26.8(L) 35.0 - 45.0 % 10/05/2023 6:29 AM [facility] MCV 93.1 80.7 - 98.3 fL 10/05/2023 6:29 AM [facility] MCH 29.2 26.7 - 34.0 pg 10/05/2023 6:29 AM [facility] MCHC 31.3 30.8 - 35.9 g/dL 10/05/2023 6:29 AM [facility] RDW-SD 50.0 36.0 - 50.0 fL 10/05/2023 6:29 AM [facility] RDW-CV 14.7 11.2 - 14.8 % 10/05/2023 6:29 AM [facility] Platelet Count 225 150 - 400 10? 3 /uL 10/05/2023 6:29 AM [facility] MPV 8.7(L) 9.4 - 12.9 fL 10/05/2023 6:29 AM [facility] nRBC Absolute 0.00 0 10? 3 /uL 10/05/2023 6:29 AM [facility] nRBC Auto 0.0 0 /100 WBC 10/05/2023 6:29 AM [facility] Neutrophils % 51.0 35.0 - 70.0 % 10/05/2023 6:29 AM [facility] Lymphocytes % 29.6 20.0 - 43.0 % 10/05/2023 6:29 AM [facility] Monocytes % 15.9(H) 5.0 - 13.0 % 10/05/2023 6:29 AM [facility] Eosinophils % 1.9 0.0 - 6.0 % 10/05/2023 6:29 AM [facility] Basophil % 0.8 0.0 - 2.0 % 10/05/2023 6:29 AM [facility] Neutrophils Absolute 3.17 1.60 - 7.00 10? 3 /uL 10/05/2023 6:29 AM [facility] Lymphocyte Absolute 1.84 1.10 - 3.90 10? 3 /uL 10/05/2023 6:29 AM [facility] Monocytes Absolute 0.99 0.26 - 1.07 10? 3 /uL 10/05/2023 6:29 AM [facility] Eosinophils Absolute 0.12 0.00 - 0.47 10? 3 /uL 10/05/2023 6:29 AM [facility] Basophils Absolute 0.05 0.00 - 0.08 10? 3 /uL 10/05/2023 6:29 AM [facility] Immature Granulocytes % 0.8 0.0 - 1.0 % 10/05/2023 6:29 AM [facility] Immature Granulocytes Absolute 0.05 10/05/2023 6:29 AM [facility] Blood BLOOD SPECIMEN / Unknown Lab Venipuncture / Unknown 10/05/2023 6:07 AM [facility] 10/05/2023 6:16 AM [facility] Jenaro Marshall MD LAB - HEMATOLOGY ORD ERABLES [facility] [address] [place] [address], [facility] [phone] * (ABNORMAL) COMPREHENSIVE METABOLIC PANEL (10/05/2023 6:07 AM [facility]) Only the most recent of8 resultswithin the time period is included. BUN 20 7 - 26 mg/dL 10/05/2023 6:54 AM [facility] Creatinine 2.99(H) 0.56 - 0.96 mg/dL 10/05/2023 6:54 AM [facility] Sodium 139 136 - 145 mmol/L 10/05/2023 6:54 AM [facility] Potassium 3.6 3.5 - 4.5 mmol/L 10/05/2023 6:54 AM [facility] Chloride 98 98 - 107 mmol/L 10/05/2023 6:54 AM [facility] CO2 32(H) 22 - 29 mmol/L 10/05/2023 6:54 AM [facility] Glucose 93 70 - 115 mg/dL 10/05/2023 6:54 AM [facility] Calcium 9.4 8.4 - 10.2 mg/dL 10/05/2023 6:54 AM [facility] Protein Total 5.4(L) 6.0 - 8.3 g/dL 10/05/2023 6:54 AM [facility] Albumin 2.6(L) 3.4 - 5.0 g/dL 10/05/2023 6:54 AM [facility] Bilirubin Total 0.5 0.2 - 1.2 mg/dL 10/05/2023 6:54 AM [facility] Alkaline Phosphatase 127 40 - 150 U/L 10/05/2023 6:54 AM [facility] ALT 14 5 - 55 U/L 10/05/2023 6:54 AM [facility] AST 16 5 - 34 U/L 10/05/2023 6:54 AM [facility] Anion Gap 9 6 - 16 10/05/2023 6:54 AM [facility] BUN/Creatinine Ratio 7 7 - 23 10/05/2023 6:54 AM [facility] Osmolality Calculated 290 275 - 295 mOsm/kg 10/05/2023 6:54 AM [facility] Albumin/Globulin Ratio 0.9(L) 1.1 - 2.3 10/05/2023 6:54 AM [facility] eGFR by CKD-EPI 15(L) >=90 mL/min/1.7 3 m2 10/05/2023 6:54 AM [facility] Blood BLOOD SPECIMEN / Unknown Lab Venipuncture / Unknown 10/05/2023 6:07 AM GROUP CARE WORKER 10/05/2023 6:34 AM [facility] Jenaro Marshall MD LAB - CHEMISTRY PATRICIA CASIANO [facility] Organization Address City/State/[facility] Co de Phone Number [facility] [address] [place] [address], [facility] [phone] * PHOSPHORUS BLOOD (10/05/2023 6:07 AM GROUP CARE WORKER) Only the most recent of13 resultswithin the time period is included. Phosphorus 3.1 2.9 - 5.1 mg/dL 10/05/2023 6:48 AM GROUP CARE WORKER [facility] Blood BLOOD SPECIMEN / Unknown Lab Venipuncture / Unknown 10/05/2023 6:07 AM GROUP CARE WORKER 10/05/2023 6:34 AM GROUP CARE WORKER Jenaro Marshall MD LAB - CHEMISTRY PATRICIA CASIANO [address] [address], [facility] [phone] * MAGNESIUM BLOOD (10/05/2023 6:07 AM GROUP CARE WORKER) Only the most recent of25 resultswithin the time period is included. Magnesium 1.8 1.6 - 2.6 mg/dL 10/05/2023 6:48 AM GROUP CARE WORKER [facility] Blood BLOOD SPECIMEN / Unknown Lab Venipuncture / Unknown 10/05/2023 6:07 AM GROUP CARE WORKER 10/05/2023 6:34 AM GROUP CARE WORKER Jenaro Marshall MD LAB - CHEMISTRY PATRICIA CASIANO [address] [address], [facility] [phone] * (ABNORMAL) PTH INTACT W/O CALCIUM (10/04/2023 4:57 AM GROUP CARE WORKER) Only the most recent of2 resultswithin the time period is included. PTH Intact 162.0(H) 8.0 - 77.0 pg/mL 10/04/2023 6:22 AM GROUP CARE WORKER [facility] Blood BLOOD SPECIMEN / Unknown Lab Venipuncture / Unknown 10/04/2023 4:57 AM GROUP CARE WORKER 10/04/2023 5:45 AM GROUP CARE WORKER Rogelio Benitez MD LAB - CHEMISTRY PATRICIA CASIANO Performing Organization Address City/[facility]/ZIP Co de Phone Number [facility] [address] [place] [address], [facility] [phone] * VITAMIN D 25-HYDROXY (10/04/2023 4:57 AM GROUP CARE WORKER) [facility] Vitamin D, 25 Hydroxy 30.7 30.0 - 80.0 ng/mL 10/04/2023 6:38 AM GROUP CARE WORKER [facility] Comment: The recommendations for 25-Hydroxy [...] Lab Venipuncture / Unknown 10/04/2023 4:57 AM GROUP CARE WORKER 10/04/2023 5:50 AM GROUP CARE WORKER Rogelio Benitez MD LAB - CHEMISTRY PATRICIA CASIANO Performing Organization Address [facility]/ZIP Co de Phone Number [facility] [address] [place] [address], [place] [phone] * CARDIAC EKG ORDER (10/03/2023 2:21 PM GROUP CARE WORKER) Only the most recent of2 resultswithin the time period is included. Narrative 10/03/2023 2:21 PM GROUP CARE WORKER Ordered by an unspecified provider. Scanned Document CARDIAC SERVICES ORD ERABLES * XR CHEST 1VW PORTABLE (10/02/2023 6:36 PM GROUP CARE WORKER) Only the most recent of10 resultswithin the time period is included. Anatomical Region Laterality Modality Chest Radiographic Marychuy ging 10/03/2023 7:34 AM GROUP CARE WORKER Impressions 10/03/2023 11:39 AM GROUP CARE WORKER IMPRESSION: Mild left base atelectasis. Report dictated by Ranjith Valdez MD, MD (vice president of recruiting). I, Debby James MD have personally reviewed and interpreted this examination/study. > Interpreting Provider: Debby James MD on 10/03/2023 11:39 AM Narrative 10/03/2023 11:39 AM GROUP CARE WORKER PROCEDURE: ??XR CHEST 1VW PORTABLE, DATE/TIME OF EXAM: ??10/02/2023 6:36 PM, LOCATION ??[facility] INDICATION: I16.1: Hypertensive emergency ADDITIONAL CLINICAL INFORMATION: [...] PORTABLE, DATE/TIME OF EXAM: 10/02/2023 6:36PM, LOCATION [facility] INDICATION: I16.1: Hypertensive emergency ADDITIONAL CLINICAL INFORMATION: [...] Report dictated by Ranjith Valdez MD, MD (vice president of recruiting). I, Debby James MD have personally reviewed and interpreted this examination/study. > Interpreting Provider: Debby James MD on 10/03/2023 11:39 AM Rogelio Benitez MD DIAGNOSTIC IMAGING O RDERABLES * SARS-COV-2 (COVID-19)+INFLU A+B PCR RAPID (09/30/2023 9:48 AM GROUP CARE WORKER) COVID-19 PCR Not detected Not detected 09/30/20 10:34 AM [facility] Influenza A Rapid ANGELA Not Detected Not Detected 09/30/2023 10:34 AM [facility] Influenza B ANGELA Rapid Not Detected Not Detected 09/30/2023 10:34 AM [facility] Microbiology SPECIMEN FROM NASOPHARYNGEAL STRUCTURE / Unknown Collection / Unknown 09/30/2023 9:48 AM GROUP CARE WORKER 09/30/2023 9:52 AM GROUP CARE WORKER [facility] - 09/30/2023 10:34 AM GROUP CARE WORKER Influenza assay performed by [employer]. [...] acid amplification assay performance was validated by [facility]. This test has been authorized by [...] - MICROBIOLOGY O SARIKA Performing Organization Address [facility]/ZIP Co de Phone Number [facility] [address] [place] [address], [facility] [phone] * HEPATITIS B SURFACE ANTIGEN W RFLX CONFIRMATION (09/30/2023 5:41 AM GROUP CARE WORKER) Only the most recent of2 resultswithin the time period is included. Hepatitis B Virus Surface Antigen Non-reacti ve Non-reacti ve 09/30/2023 12:28 PM GROUP CARE WORKER [facility] Blood BLOOD SPECIMEN / Unknown Venipuncture / Unknown 09/30/2023 5:41 AM GROUP CARE WORKER 09/30/2023 5:49 AM GROUP CARE WORKER Howard Weston MD LAB - CHEMISTRY PATRICIA CASIANO Performing Organization Address [facility]/ZIP Co de Phone Number [facility] [address] [place] [address], [facility] [phone] * (ABNORMAL) IRON + TRANSFERRIN PANEL (09/30/2023 5:41 AM GROUP CARE WORKER) Only the most recent of2 resultswithin the time period is included. Iron 77 40 - 150 ug/dL 09/30/2023 7:34 AM GROUP CARE WORKER [facility] Transferrin 128(L) 174 - 382 mg/dL 09/30/2023 7:34 AM [facility] Transferrin Saturation % 48 16 - 50 % 09/30/2023 7:34 AM [facility] TIBC Calculated 160(L) 240 - 450 ug/dL 09/30/2023 7:34 AM [facility] Blood BLOOD SPECIMEN / Unknown Venipuncture / Unknown 09/30/2023 5:41 AM GROUP CARE WORKER 09/30/2023 5:49 AM GROUP CARE WORKER Jenaro Marshall MD LAB - CHEMISTRY PATRICIA CASIANO [facility] [address] [place] [address], [place] [phone] * (ABNORMAL) FERRITIN (09/30/2023 5:41 AM GROUP CARE WORKER) Only the most recent of2 resultswithin the time period is included. Ferritin 2,026(H) 13 - 204 ng/mL 09/30/2023 8:25 AM GROUP CARE WORKER [facility] Comment:Result obtained by vasyl eugene. Blood BLOOD SPECIMEN / Unknown Venipuncture / Unknown 09/30/2023 5:41 AM GROUP CARE WORKER 09/30/2023 5:49 AM GROUP CARE WORKER Jenaro Marshall MD LAB - CHEMISTRY PATRICIA CASIANO Performing Organization Address City/[facility]/ZIP Co de Phone Number [address] [address], [place] [phone] * (ABNORMAL) TROPONIN-I HIGH SENSITIVE REFLEX 1HOUR (09/29/2023 6:24 PM GROUP CARE WORKER) Troponin I High Sensitive 23(H) <=14 ng/L 09/29/2023 7:11 PM GROUP CARE WORKER [facility] Delta Troponin I HS <0 <6 ng/L 09/29/2023 7:11 PM GROUP CARE WORKER [facility] Blood BLOOD SPECIMEN / Unknown Venipuncture / Unknown 09/29/2023 6:24 PM GROUP CARE WORKER 09/29/2023 6:32 PM GROUP CARE WORKER Alexis Atkins MD LAB - CHEMISTRY PATRICIA CASIANO [address] [address], [place] [phone] * EKG 12-LEAD (09/29/2023 5:23 PM GROUP CARE WORKER) Only the most recent of6 resultswithin the time period is included. Ventricular Rate 72 BPM [facility] Atrial Rate 72 BPM [facility] P-R Interval 182 ms [facility] QRS Duration ms 84 ms [facility] Q-T Interval ms 424 ms [facility] QTC Calculation (Bezet) 464 ms [facility] Calculated P [place] 53 degrees [facility] Calculated R [place] 16 degrees [facility] Calculated T [place] 44 degrees [facility] Interpretation EKG NORMAL SINUS RHYTHM NONSPECIFIC ST ABNORMALITY ABNORMAL ECG WHEN COMPARED WITH ECG OF 21-AUG-2022 19:22, PREMATURE ATRIAL COMPLEXES ARE NO LONGER PRESENT CA INTERVAL HAS DECREASED Confirmed by ARIAS ??JAMIE LAWRENCE ([id number]) on 10/01/2023 7:29:35 PM [facility] 09/29/2023 5:23 PM GROUP CARE WORKER 10/01/2023 7:29 PM GROUP CARE WORKER Alexis Atkins MD ECG ORDERABLES [facility] * (ABNORMAL) TEG 6 GLOBAL HEMOSTASIS W/ LYSIS (09/29/2023 5:19 PM GROUP CARE WORKER) Citrated Kaolin R (Reaction Time) 3.2(L) 4.6 - 9.1 min 09/29/2023 6:32 PM [facility] Comment:CK R result below no rmal range. Consistent with hypercoagulable clotting factors. Citrated Kaolin LY30 (Lysis) 0.8 0.0 - 2.6 % 09/29/2023 6:32 PM [facility] Citrated Functional Fibrinogen MA (Max Amplitude) 35.0(H) 15.0 - 32.0 mm 09/29/2023 6:32 PM [facility] Comment:CFF MA above normal range. Consistent with elevated fibrinogen contribution to clot strength. Citrated RapidTEG MA (Max Amplitude) 68.1 52.0 - 70.0 mm 09/29/2023 6:32 PM [facility] Blood BLOOD SPECIMEN / Unknown Venipuncture / Unknown 09/29/2023 5:19 PM GROUP CARE WORKER 09/29/2023 5:31 PM GROUP CARE WORKER Alexis Atkins MD LAB - HEMATOLOGY ORD ERABLES [facility] [address] [place] [address], [facility] [phone] * (ABNORMAL) TEG 6S PLATELET MAPPING (09/29/2023 5:19 PM GROUP CARE WORKER) TEGPLM (Max Amplitude) Koalin 67.0 53.0 - 68.0 mm 09/29/2023 6:39 PM [facility] TEGPLM (Max Amplitude) ACTF 21.9(H) 2.0 - 19.0 mm 09/29/2023 6:39 PM [facility] TEGPLM (Max Amplitude) ADP 63.0 45.0 - 69.0 mm 09/29/2023 6:39 PM [facility] TEGPLM (Max Amplitude) AA 62.6 51.0 - 71.0 mm 09/29/2023 6:39 PM [facility] TEGPLM %Inhibition ADP 8.9 0.0 - 17.0 % 09/29/2023 6:39 PM [facility] TEGPLM %Inhibition AA 9.8 0.0 - 11.0 % 09/29/2023 6:39 PM [facility] TEGPLM %Aggregation ADP 91.1 83.0 - 100.0 % 09/29/2023 6:39 PM [facility] TEGPLM % Aggregation AA 90.2 89.0 - 100.0 % 09/29/2023 6:39 PM [facility] Blood BLOOD SPECIMEN / Unknown Venipuncture / Unknown 09/29/2023 5:19 PM GROUP CARE WORKER 09/29/2023 5:31 PM GROUP CARE WORKER Alexis Atkins MD LAB - HEMATOLOGY ORD ERABLES [facility] [address] [place] [address], [facility] [phone] * PT-INR [facility] (09/29/2023 5:19 PM GROUP CARE WORKER) Only the most recent of14 resultswithin the time period is included. PT 12.2 12.1 - 14.8 Seconds 09/29/2023 5:52 PM GROUP CARE WORKER [facility] INR 0.9 See Comment 09/29/2023 5:52 PM GROUP CARE WORKER [facility] Comment:The suggested therap eutic range for standard coumadin (warfarin) therapy is an INR of 2.0-3.0. For high-risk patients (Mechanical Mitral Valve Prosthesis, etc.), the suggested prophylactic therapeutic range is an INR of 2.5-3.5. Blood BLOOD SPECIMEN / Unknown Venipuncture / Unknown 09/29/2023 5:19 PM GROUP CARE WORKER 09/29/2023 5:28 PM GROUP CARE WORKER Alexis Atkins MD LAB - COAGULATION OR DERABLES Performing Organization Address [facility]/ZIP Co de Phone Number [address] [address], [facility] [phone] * (ABNORMAL) TROPONIN-I HIGH SENSITIVE BASELINE + 1HR (09/29/2023 5:19 PM GROUP CARE WORKER) Pathologist [facility] Troponin I High Sensitive 26(H) <=14 ng/L 09/29/2023 6:01 PM GROUP CARE WORKER [facility] Blood BLOOD SPECIMEN / Unknown Venipuncture / Unknown 09/29/2023 5:19 PM GROUP CARE WORKER 09/29/2023 5:28 PM GROUP CARE WORKER Alexis Atkins MD LAB - CHEMISTRY ORDE RABLES Performing Organization Address [facility]/ZIP Co de Phone Number [address] [address], [facility] [phone] * CT CHEST ABDOMEN PELVIS W CONT (09/29/2023 5:03 PM GROUP CARE WORKER) Anatomical Region Laterality Modality Chest, Abdomen, Pelvis Computed Tomography 09/29/2023 4:52 PM GROUP CARE WORKER Impressions 09/29/2023 7:37 PM GROUP CARE WORKER Impression: 1.New age-indeterminate fractures of the right second, third, fourth anterior ribs, favored to be acute/subacute. Correlation with point tenderness. 2.Otherwise no evidence of osseous or visceral injury in the chest, abdomen or pelvis. > Dictated by Heath Wu MD, (vice president of recruiting). I, Juwan Aceves have personally reviewed and interpreted this examination/study. > Interpreting Provider: Juwan Aceves on 09/29/2023 7:37 PM Narrative 09/29/2023 7:37 PM GROUP CARE WORKER PROCEDURE: ??CT CHEST ABDOMEN PELVIS W CONT, DATE/TIME OF EXAM: ??09/29/2023 5:04 PM, LOCATION ??[facility] INDICATION: W19.XXXA: Fall, initial encounter [...] CONT, DATE/TIME OF EXAM:09/29/2023 5:04 PM, LOCATION [facility] INDICATION: W19.XXXA: Fall, initial encounter [...] pelvis. > Dictated by Heath Wu MD, (vice president of recruiting). I, Juwan Aceves have personally reviewed and interpreted this examination/study. > Interpreting Provider: Juwan Aceves on 09/29/2023 7:37 PM Alexis Atkins MD CT ORDERABLES * CT LUMBAR SPINE WO CONTRAST (09/29/2023 5:03 PM GROUP CARE WORKER) Anatomical Region Laterality Modality Spine Computed Tomogra phy 09/29/2023 5:12 PM GROUP CARE WORKER Impressions 09/29/2023 6:11 PM GROUP CARE WORKER IMPRESSION: 1. Small acute extra-axial hematoma along [...] 09/29/2023 6:11 PM Narrative 09/29/2023 6:11 PM GROUP CARE WORKER PROCEDURE: ??CT HEAD WO CONTRAST, CT LUMBAR [...] THORACIC SPINE WO CONTRAST (09/29/2023 5:03 PM GROUP CARE WORKER) Anatomical Region Laterality Modality Spine Computed Tomogra phy 09/29/2023 5:12 PM GROUP CARE WORKER Impressions 09/29/2023 6:11 PM GROUP CARE WORKER IMPRESSION: 1. Small acute extra-axial hematoma along [...] 09/29/2023 6:11 PM Narrative 09/29/2023 6:11 PM GROUP CARE WORKER PROCEDURE: ??CT HEAD WO CONTRAST, CT LUMBAR [...] CERVICAL SPINE WO CONTRAST (09/29/2023 5:03 PM GROUP CARE WORKER) Anatomical Region Laterality Modality Spine Computed Tomogra phy 09/29/2023 5:12 PM GROUP CARE WORKER Impressions 09/29/2023 6:11 PM GROUP CARE WORKER IMPRESSION: 1. Small acute extra-axial hematoma along [...] 09/29/2023 6:11 PM Narrative 09/29/2023 6:11 PM GROUP CARE WORKER PROCEDURE: ??CT HEAD WO CONTRAST, CT LUMBAR [...] CT HEAD WO CONTRAST (09/29/2023 5:03 PM GROUP CARE WORKER) Only the most recent of3 resultswithin the time period is included. Anatomical Region Laterality Modality Head Computed Tomogra phy 09/29/2023 5:12 PM GROUP CARE WORKER Impressions 09/29/2023 6:11 PM GROUP CARE WORKER IMPRESSION: 1. Small acute extra-axial hematoma along [...] 09/29/2023 6:11 PM Narrative 09/29/2023 6:11 PM GROUP CARE WORKER PROCEDURE: ??CT HEAD WO CONTRAST, CT LUMBAR [...] demonstrated no significant abnormality. ?? A 7 [place] sheath was introduced over a Bentson wire [...] - 105 mg/dL 06/15/2023 11:10 AM CDT [facility] Sodium 136 136 - 145 mmol/L 06/15/2023 11:10 AM CDT [facility] Potassium 3.7 3.5 - 5.1 mmol/L 06/15/2023 11:10 AM CDT [facility] Chloride 97(L) 98 - 107 mmol/L 06/15/2023 11:10 AM CDT [facility] CO2 27 22 - 29 mmol/L 06/15/2023 11:10 AM CDT [facility] Calcium 10.6(H) 8.4 - 10.4 mg/dL 06/15/2023 11:10 AM CDT [facility] Anion Gap 12 6 - 16 mmol/L 06/15/2023 11:10 AM CDT [facility] BUN 28(H) 7 - 26 mg/dL 06/15/2023 11:10 AM CDT [facility] Creatinine 3.99(H) 0.57 - 1.11 mg/dL 06/15/2023 11:10 AM CDT [facility] eGFR by CKD-EPI 11(L) >=90 mL/min/1.7 3 m2 06/15/2023 11:10 AM CDT [facility] Blood BLOOD SPECIMEN / Unknown Venipuncture / Unknown 06/15/2023 10:46 AM CDT 06/15/2023 10:55 AM CDT Zohra Peng DO LAB - CHEMISTRY LEOE STEPHENIE [facility] Organization Address City/State/ZIP Co de Phone Number [facility] [address] [place] [address] * VAS BILAT MAPPING FOR HEMODIALYSIS (03/31/2023 3:01 PM CDT) Anatomical Region Laterality Modality Lower Extremity, Upper Extremity Ultrasound 03/31/2023 2:47 PM CDT Narrative Procedure Note Andrew Rothman MD - 04/02/2023 [facility] [place] [facility] [address] [address], [address] [place] [address] Vessel Mapping for Hemodialysis Report Pat.Name: PAYTON KIRSTY L Pat.ID: [id number] St.Date: 03/31/2023 Refer.MD: DONNA BLACKWELL Exam Time: 2:47:00 PM Study Type:Vessel Mapping for Hemodialysis Age: 2 1940,82Y Sex: FEMALE Sonogrphr: Agustín Valentin RVT Pat. Stat.:Outpatient CPT - 4: 81476 Reason for Study: End Stage Renal Disease Procedures: Vessel Mapping for Hemodialysis Race: 1 Visit ID: [id number] ++++++++++++++++++++++++++++++++++++ SUMMARY: ++++++++++++++++++++++++++++++++++++ Left - Cephalic vein [...] Leland Thompson MD ? 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 WBC 7.2 3.5 - 10.5 10? 3 /uL 09/08/2022 2:53 AM [facility] RBC 2.98(L) 3.80 - 5.20 10? 6 /uL 09/08/2022 2:53 AM [facility] Hemoglobin 8.6(L) 12.0 - 15.6 g/dL 09/08/2022 2:53 AM [facility] Hematocrit 26.1(L) 35.0 - 45.0 % 09/08/2022 2:53 AM [facility] MCV 87.6 80.7 - 98.3 fL 09/08/2022 2:53 AM [facility] MCH 28.9 26.7 - 34.0 pg 09/08/2022 2:53 AM [facility] MCHC 33.0 30.8 - 35.9 g/dL 09/08/2022 2:53 AM [facility] RDW-SD 42.5 36.0 - 50.0 fL 09/08/2022 2:53 AM [facility] RDW-CV 14.0 11.2 - 14.8 % 09/08/2022 2:53 AM [facility] Platelet Count 268 150 - 400 10? 3 /uL 09/08/2022 2:53 AM [facility] MPV 10.1 9.4 - 12.9 fL 09/08/2022 2:53 AM [facility] nRBC Absolute 0.00 0 10? 3 /uL 09/08/2022 2:53 AM [facility] nRBC Auto 0.0 0 /100 WBC 09/08/2022 2:53 AM [facility] Blood BLOOD SPECIMEN / Unknown Lab Venipuncture / Unknown 09/08/2022 1:48 AM GROUP CARE WORKER 09/08/2022 2:44 AM GROUP CARE WORKER Jero Orozco MD LAB - HEMATOLOGY ORD ERABLES [facility] [address] [place] [address], [facility] [phone] * (ABNORMAL) RENAL FUNCTION PANEL (09/08/2022 1:48 AM GROUP CARE WORKER) Only the most recent of19 resultswithin the time period is included. BUN 39(H) 7 - 26 mg/dL 09/08/2022 3:17 AM [facility] Creatinine 2.69(H) 0.56 - 0.96 mg/dL 09/08/2022 3:17 AM [facility] Sodium 137 136 - 145 mmol/L 09/08/2022 3:17 AM [facility] Potassium 3.4(L) 3.5 - 4.5 mmol/L 09/08/2022 3:17 AM [facility] Chloride 99 98 - 107 mmol/L 09/08/2022 3:17 AM [facility] CO2 23 22 - 29 mmol/L 09/08/2022 3:17 AM [facility] Glucose 104 70 - 115 mg/dL 09/08/2022 3:17 AM [facility] Albumin 2.6(L) 3.4 - 5.0 g/dL 09/08/2022 3:17 AM [facility] Calcium 9.2 8.4 - 10.2 mg/dL 09/08/2022 3:17 AM [facility] Phosphorus 3.5 2.9 - 5.1 mg/dL 09/08/2022 3:17 AM [facility] Anion Gap 18 8 - 18 09/08/2022 3:17 AM [facility] BUN/Creatinine Ratio 14 7 - 23 09/08/2022 3:17 AM [facility] Osmolality Calculated 294 270 - 300 mOsm/kg 09/08/2022 3:17 AM [facility] eGFR by CKD-EPI 17(L) >=90 mL/min/1.7 3 m2 09/08/2022 3:17 AM [facility] Blood BLOOD SPECIMEN / Unknown Lab Venipuncture / Unknown 09/08/2022 1:48 AM GROUP CARE WORKER 09/08/2022 2:44 AM GROUP CARE WORKER Jero Orozco MD LAB - [facility]Y [facility] Organization Address City/State/ZIP Co de Phone Number [facility] [address] [place] [address], [facility] [phone] * APHERESIS/TRANSFUSION ORDER (09/03/2022 1:06 PM CDT) [...] effusion. > Dictated by Glendy Martínez MD (vice president of recruiting). I, Kevin Casas MD have personally reviewed and interpreted this examination/study. > Interpreting Provider: Kevin Casas MD on 09/02/2022 11:00 AM Narrative 09/02/2022 11:00 AM CDT PROCEDURE: ??CT CHEST WO CONTRAST, DATE/TIME OF EXAM: ??09/01/2022 5:41 PM, LOCATION ??[facility] INDICATION: J96.01: Acute respiratory failure with hypoxia [...] DATE/TIME OF EXAM: 09/01/2022 5:41 PM, LOCATION [facility] INDICATION: J96.01: Acute respiratory failure with hypoxia [...] effusion. > Dictated by Glendy Martínez MD (vice president of recruiting). IKevin MD have personally reviewed and interpreted [...] DATE/TIME OF EXAM: ??09/01/2022 9:22 AM, LOCATION ??[facility] INDICATION: J96.01: Acute respiratory failure with hypoxia [...] DATE/TIME OF EXAM: 09/01/2022 9:22 AM, LOCATION [facility] INDICATION: J96.01: Acute respiratory failure with hypoxia [...] ve Non-reacti ve 09/01/2022 10:02 AM CDT [facility] Blood BLOOD SPECIMEN / Unknown Lab Venipuncture / Unknown 09/01/2022 7:06 AM CDT 09/01/2022 7:39 AM CDT Josh Harrell MD LAB - CHEMISTRY PATRICIA CASIANO [facility] [address] [place] [address], [facility] [phone] * FOLATE (09/01/2022 7:06 AM CDT) Folate 12.3 7.0 - 31.4 ng/mL 09/01/2022 10:17 AM CDT [facility] Blood BLOOD SPECIMEN / Unknown Lab Venipuncture / Unknown 09/01/2022 7:06 AM CDT 09/01/2022 7:40 AM CDT Almaz Patel MD LAB - CHEMISTRY OR DERABLES Performing Organization Address City/[facility]/ZIP Co de Phone Number [address] [address], [facility] [phone] * VITAMIN B12 (09/01/2022 7:06 AM CDT) Only the most recent of2 resultswithin the time period is included. Vitamin B12 665 213 - 816 pg/mL 09/01/2022 10:17 AM CDT [facility] Blood BLOOD SPECIMEN / Unknown Lab Venipuncture / Unknown 09/01/2022 7:06 AM CDT 09/01/2022 7:40 AM CDT Almaz Patel MD LAB - CHEMISTRY OR DERABLES Performing Organization Address City/[facility] Co de Phone Number [address] [address], [facility] [phone] * NOCTURNAL DESATURATION STUDY (08/31/2022 11:08 AM [...] of Pulmonary, Critical Care, & Sleep Medicine [facility] 09/01/2022 , 2:00 PM Narrative Artem Villa MD - 08/31/2022 11:08 AM CDT LalaEstuardo RCP ? 08/31/2022 11:14 AM Nocturnal Oxygen Desaturation study set up and completed by Kerry Pete slot shift supervisor RT. ??Patient on RA ?? (Device/FiO2 or liter flow/Settings/etc) during study. ??Results uploaded to [email or web address] and shared with Dr. Allen M.D., Inter Fold Roll Cutter reading PFT's. ??Final report with interpretation will be posted in Results Review under Pulse Oximetry, Continuous . ?? Procedure Note Estuardo Lala RCP - 08/31/2022 11:08 AM CDT Images from the original note were not included. Nocturnal Oxygen Desaturation study set up and completed by Kerry Pete slot shift supervisor RT. Patient on RA (Device/FiO2 or literflow/Settings/etc) during study. Results uploaded to [email or web address] and shared withDr. Allen M.D., Inter Fold Roll Cutter reading PFT's. Final report withinterpretation will be [...] is included. Unit Description AS1 LR PRBC [facility] Unit ABO A [facility] Unit Rh NEG [facility] Product Number R44 [facility] B[facility] Unit Donor # [id number] [facility] Unit Status transfused [facility] Product Code [id number] [facility] Blood Type Barcode 0600 [facility] Expiration Date S BLOOD BANK LAB Blood Bank BLOOD SPECIMEN / Unknown 08/29/2022 7:00 AM CDT Primo Maurice MD LAB - BLOOD BANK ORD ERABLES [facility] [address] [place] [address], [place] [phone] * TYPE + SCREEN PANEL (08/29/2022 6:48 AM CDT) Only the most recent of2 resultswithin the time period is included. [facility] Antibody Screen NEG 7:39 AM CDT [facility] ABO Rh A NEG 08/29/2022 7:39 AM CDT [facility] Blood Bank BLOOD SPECIMEN / Unknown Venipuncture / Unknown 08/29/2022 6:48 AM CDT 08/29/2022 7:00 AM CDT Primo Maurice MD LAB - BLOOD BANK ORD ERABLES Performing Organization Address City/[facility]/ZIP Co de Phone Number [facility] [address] [place] [address], [place] [phone] * (ABNORMAL) GLUCOSE - POINT OF CARE (08/26/2022 11:48 PM CDT) Only the most recent of6 resultswithin the time period is included. [facility] Glucose WB/POC 148(H) 70 - 115 mg/dL 08/27/2022 4:21 AM CDT [facility] Specimen Type Cap Fingerstick 2021 4:21 AM CDT [facility] Blood BLOOD SPECIMEN / Unknown 08/26/2022 11:48 PM CDT 08/27/2022 4:21 AM CDT Ashvin Barber MD LAB - POINT OF CARE ORDERABLES Performing Organization Address City/[facility]/ZIP Co de Phone Number [address] [address], [place] [phone] * (ABNORMAL) POTASSIUM WHOLE BLD (08/25/2022 1:20 PM CDT) [facility] Potassium Whole Blood 3.4(L) 3.5 - 5.5 mmol/L 08/25/2022 1:31 PM CDT [facility] Blood WHOLE BLOOD SPECIMEN / Unknown Venipuncture / Unknown 08/25/2022 1:20 PM CDT 08/25/2022 1:23 PM CDT Jayna Masters MD LAB - CHEMISTRY PATRICIA CASIANO [facility] [address] [place] [address], [place] [phone] * MRSA DNA PCR (08/25/2022 1:18 PM CDT) [facility] MRSA DNA by PCR Not detected Not detected 08/25/2022 6:10 PM CDT [facility] Microbiology SPECIMEN FROM NASAL FOSSAE / Unknown Collection / Unknown 08/25/2022 1:18 PM CDT 08/25/2022 1:23 PM CDT Narrative [facility] - 08/25/2022 6:10 PM CDT Methicillin-resistant Staphylococcus aureus (MRSA) DNA is not detected (presumed not colonized with MRSA). Héctor Silva MD LAB - MICROBIOLOGY O RDERABLES Performing Organization Address City/[facility]/ZIP Co de Phone Number [facility] [address] [place] [address], [facility] [phone] * IR CENTRAL LINE INSERT TUNNEL (08/25/2022 [...] DATE/TIME OF EXAM: ??08/25/2022 12:32 PM, LOCATION ??[facility] INDICATION: N18.30: Stage 3 chronic kidney disease, unspecified whether stage 3a or 3b CKD ([facility]) N17.9: Acute renal failure, unspecified acute renal failure type ([facility]) ADDITIONAL CLINICAL INFORMATION: Ordering Provider Reason [...] TUNNEL, DATE/TIME OF EXAM:08/25/2022 12:32 PM, LOCATION [facility] INDICATION: N18.30: Stage 3 chronic kidney disease, unspecified whether stage 3a or3b CKD (CMS/HCC) N17.9: Acute renal failure, unspecified acute renal failure type([facility]) ADDITIONAL CLINICAL INFORMATION: Ordering Provider Reason [...] ANTIBODY QUANT (08/23/2022 8:22 PM CDT) Pathologist [facility] Hepatitis B Virus Surface Antibody 3.26 IU/L 08/25/2022 1:45 PM CDT [facility] ([facility]) Comment: The anti-HBs is less [...] Cellular and Tissue-Based Products (HCT/P). Performed By: [facility] [address] [place] [address] As400 Analyst: Rene Rodas MD, PhD Blood BLOOD SPECIMEN / Unknown Line Draw / Unknown 08/23/2022 8:22 PM CDT 08/23/2022 9:39 PM CDT Josh Harrell MD LAB - SEROLOGY ORDER JULISSA [facility] ([facility]) [address] [place] [address], [facility] * ECHO LIMITED OR FOLLOWUP (08/23/2022 9:34 AM CDT) Anatomical Region Laterality Modality Chest Echo 08/23/2022 9:13 AM CDT Narrative Procedure Note Catarina Dobbins MD - 08/23/2022 Héctor Silva MD ECHOCARDIOGRAPHY RAD IANT * LACTIC ACID BLOOD (08/22/2022 8:21 PM CDT) [facility] Lactic Acid-Stat 0.6 <=2.0 mmol/L 08/22/2022 8:52 PM CDT [facility] Blood BLOOD SPECIMEN / Unknown Venipuncture / Unknown 08/22/2022 8:21 PM CDT 08/22/2022 8:26 PM CDT Héctor Silva MD LAB - CHEMISTRY PATRICIA CASIANO [facility] Organization Address City/State/ZIP Co de Phone Number [address] [address], [facility] [phone] * (ABNORMAL) BLOOD GASES ART + COOX PANEL (08/22/2022 6:01 PM CDT) Only the most recent of3 resultswithin the time period is included. [facility] pH Arterial 7.29(L) 7.35 - 7.45 pH 08/22/2022 6:06 PM [facility] pO2 Arterial 66(L) 80 - 100 mmHg 08/22/2022 6:06 PM [facility] pCO2 Arterial 33(L) 35 - 45 mmHg 6:06 PM [facility] HCO3 Arterial 16(L) 20 - 30 mmol/l 08/22/2022 6:06 PM [facility] BE Arterial -9.8(L) -2.0 - 2.0 mmol/L 08/22/2022 6:06 PM [facility] Oxyhemoglobin Arterial 94.7 % 08/22/2022 6:06 PM [facility] Dexoyhemoglobin (HHB) % 3.3 % 08/22/2022 6:06 PM T [facility] Methemoglobin <0.8 0.0 - 2.0 % 08/22/2022 6:06 PM T [facility] Carboxyhemoglobin 1.7 0.0 - 2.0 % 2021 6:06 PM [facility] O2 Content Arterial 10.3 Interpret within clinical context ml/dL 08/22/2022 6:06 PM [facility] Hemoglobin by COOX 7.7(L) 12.0 - 15.6 g/dL 08/22/2022 6:06 PM [facility] O2 Saturation Arterial 97 90 - 100 % 08/22/2022 6:06 PM [facility] FI O2 Arterial 40.0 % 08/22/2022 6:06 PM T [facility] Blood, arterial ARTERIAL BLOOD SPECIMEN / Unknown Arterial Puncture / Unknown 08/22/2022 6:01 PM CDT 08/22/2022 6:04 PM CDT Narrative [facility] - 08/22/2022 6:06 PM CDT Carboxyhemoglobin Normal Concentration: Non-smokers: 0-2%; Smokers: 0-9%; Toxic: >20% Héctor Silva MD LAB - BLOOD GASES OR DERABLES Performing Organization Address City/State/[facility] Co de Phone Number [facility] [address] [place] [address], [facility] [phone] * XR ABDOMEN KUB PORTABLE (08/22/2022 3:42 [...] stomach. Report dictated by German Aponte MD (vice president of recruiting). I, Corey Min MD have personally reviewed [...] stomach. Report dictated by German Aponte MD (vice president of recruiting). Corey Hester MD have personally reviewed and interpreted this examination/study. > Interpreting Provider: Corey Mni MD on 08/22/2022 9:37 PM Héctor Silva MD DIAGNOSTIC IMAGING O RDERABLES * XR CHEST 1VW (08/22/2022 8:31 AM CDT) Anatomical Region Laterality Modality Chest Radiographic Marychuy ging 08/23/2022 12:2 5 PM CDT Narrative 08/23/2022 12:27 PM CDT PROCEDURE: ??XR CHEST 1VW, DATE/TIME OF EXAM: ??08/23/2022 10:15 AM, LOCATION [facility] INDICATION: R06.02: SOB (shortness of breath) ADDITIONAL [...] 1VW, DATE/TIME OF EXAM: 08/23/2022 10:15 AM,LOCATION [facility] INDICATION: R06.02: SOB (shortness of breath) ADDITIONAL [...] 0.037(H) <0.032 ng/mL 08/22/2022 8:49 AM CDT [facility] Blood BLOOD SPECIMEN / Unknown Lab Venipuncture / Unknown 08/22/2022 7:47 AM CDT 08/22/2022 8:16 AM CDT Héctor Silva MD LAB - CHEMISTRY PATRICIA CASIANO [facility] Organization Address City/State/[facility] Co de Phone Number [address] [address], [facility] [phone] * UREA NITROGEN URINE RANDOM (08/22/2022 3:52 AM CDT) Only the most recent of2 resultswithin the time period is included. Urea Nitrogen Random Urine 186 Not Established mg/dL 08/22/2022 4:26 AM CDT [facility] Urine URINE SPECIMEN OBTAINED BY CLEAN CATCH PROCEDURE / Unknown Collection / Unknown 08/22/2022 3:52 AM CDT 08/22/2022 3:58 AM CDT Héctor Silva MD LAB - URINE CHEMISTR Y ORDERABLES [address] [address], [facility] [phone] * OSMOLALITY URINE (08/22/2022 3:52 AM CDT) Only the most recent of3 resultswithin the time period is included. Osmolality Urine 309 50 - 1,200 mOsm/kg 08/22/2022 5:38 AM CDT [facility] Urine URINE SPECIMEN OBTAINED BY CLEAN CATCH PROCEDURE / Unknown Collection / Unknown 08/22/2022 3:52 AM CDT 08/22/2022 3:58 AM CDT Héctor Silva MD LAB - URINE CHEMISTR Y ORDERABLES Performing Organization Address [facility] Co de Phone Number [address] [address], [place] [phone] * LYTES (NA K CL) URINE RANDOM PANEL (08/22/2022 3:52 AM CDT) Sodium Urine 75 Not Established mmol/L 08/22/2022 4:26 AM CDT [facility] Potassium Urine 35.9 Not Established mmol/L 08/22/2022 4:26 AM CDT [facility] Chloride Random Urine 105 Not Established mmol/L 08/22/2022 4:26 AM CDT [facility] Urine URINE SPECIMEN OBTAINED BY CLEAN CATCH PROCEDURE / Unknown Collection / Unknown 08/22/2022 3:52 AM CDT 08/22/2022 3:58 AM CDT Héctor Silva MD LAB - URINE CHEMISTR Y ORDERABLES [address] [address], [place] [phone] * CREATININE URINE RANDOM (08/22/2022 3:52 AM CDT) Only the most recent of2 resultswithin the time period is included. Creatinine Urine 30 Not Established mg/dL 08/22/2022 4:26 AM CDT [facility] Urine URINE SPECIMEN OBTAINED BY CLEAN CATCH PROCEDURE / Unknown Collection / Unknown 08/22/2022 3:52 AM CDT 08/22/2022 3:58 AM CDT Héctor Silva MD LAB - URINE CHEMISTR Y ORDERABLES Performing Organization Address City/[facility]/ZIP Co de Phone Number [address] [address], [facility] [phone] * SODIUM URINE RANDOM (08/21/2022 12:04 PM CDT) Only the most recent of2 resultswithin the time period is included. Sodium Urine 25 Not Established mmol/L 08/21/2022 12:33 PM CDT [facility] Urine URINE SPECIMEN OBTAINED BY CLEAN CATCH PROCEDURE / Unknown Collection / Unknown 08/21/2022 12:04 PM CDT 08/21/2022 12:10 PM CDT Héctor Silva MD LAB - URINE CHEMISTR Y ORDERABLES Performing Organization Address City/[facility] Co de Phone Number [address] [address], [facility] [phone] * LYTES (NA K) URINE RANDOM PANEL (08/21/2022 12:04 PM CDT) Only the most recent of2 resultswithin the time period is included. Sodium Urine 25 Not Established mmol/L 08/21/2022 12:33 PM CDT [facility] Potassium Urine 52.2 Not Established mmol/L 08/21/2022 12:33 PM CDT [facility] Urine URINE SPECIMEN OBTAINED BY CLEAN CATCH PROCEDURE / Unknown Collection / Unknown 08/21/2022 12:04 PM CDT 08/21/2022 12:10 PM CDT Héctor Silva MD LAB - URINE CHEMISTR Y ORDERABLES [facility] [address] [place] [address], [facility] [phone] * (ABNORMAL) D-DIMER (08/21/2022 11:23 AM CDT) D-Dimer Quantitative 3.06(H) <=0.50 mcg/mL FEU 08/21/2022 11:59 AM CDT [facility] Comment: In the absence of [...] Silva MD LAB - COAGULATION OR DERABLES [facility] [address] [place] [address], [place] [phone] * PROCALCITONIN LEVEL (08/20/2022 12:44 PM CDT) PROCALCITONIN 0.10 <=0.10 ng/mL 08/20/2022 1:56 PM CDT [facility] Blood BLOOD SPECIMEN / Unknown Lab Venipuncture / Unknown 08/20/2022 12:44 PM CDT 08/20/2022 12:47 PM CDT Narrative [facility] - 08/20/2022 1:56 PM CDT [...] Change in Procalcitonin Calculator is available at [email or web address] ?? If clinical picture has not improved and PCT remains high, reevaluate and consider treatment failure or other causes. Héctor Silva MD LAB - CHEMISTRY PATRICIA CASIANO Performing Organization Address City/State/[facility] Co de Phone Number [facility] [address] [id number] [phone] * US RETROPERITONEAL COMPLETE (08/20/2022 11:34 AM CDT) Anatomical Region Laterality Modality Abdomen Ultrasound 08/20/2022 11:4 1 AM CDT Impressions 08/20/2022 1:22 PM CDT IMPRESSION: 1.Normal renal size. No evidence of nephrolithiasis, hydronephrosis, or solid renal mass. 2.1.5 x 1.1 cm simple cyst within the upper pole of the right kidney. 3.Right pleural effusion. > Dictated by Xiao Hamm MD (vice president of recruiting). Corey Hester MD have personally reviewed and interpreted this examination/study. > Interpreting Provider: Corey Min MD on 08/20/2022 1:22 PM Narrative 08/20/2022 1:22 PM CDT PROCEDURE: ??US RETROPERITONEAL COMPLETE, DATE/TIME OF EXAM: ??08/20/2022 11:34 AM, LOCATION ??[facility] INDICATION: E87.1: Hyponatremia ADDITIONAL CLINICAL INFORMATION: Ordering [...] DATE/TIME OF EXAM: 08/20/2022 11:34 AM, LOCATION [facility] INDICATION: E87.1: Hyponatremia ADDITIONAL CLINICAL INFORMATION: Ordering [...] effusion. > Dictated by Xiao Hamm MD (vice president of recruiting). ICorey MD have personally reviewed and interpreted this examination/study. > Interpreting Provider: Corey Min MD on 08/20/2022 1:22 PM Héctor Silva MD US ORDERABLES * TSH REFLEX FREE T4 (08/20/2022 2:50 AM CDT) TSH 4.654 0.350 - 4.940 uIU/mL 08/20/2022 3:48 AM CDT [facility] Blood BLOOD SPECIMEN / Unknown Lab Venipuncture / Unknown 08/20/2022 2:50 AM CDT 08/20/2022 3:00 AM CDT Héctor Silva MD LAB - CHEMISTRY PATRICIA CASIANO [facility] Organization Address City/State/[facility] Co de Phone Number [facility] [address] [place] [address], [facility] [phone] * TRIGLYCERIDES BLOOD (08/20/2022 2:50 AM CDT) Triglycerides 64 <150 mg/dL 08/20/2022 3:33 AM CDT [facility] Comment: ATP III Classification of Triglycerides: ?<150 mg/dL: ??Normal ? 150 - 199 mg/dL: ??Borderline High ? 200 - 400 mg/dL: ??High ?>500 mg/dL: ??Very High Blood BLOOD SPECIMEN / Unknown Lab Venipuncture / Unknown 08/20/2022 2:50 AM CDT 08/20/2022 3:00 AM CDT Héctor Silva MD LAB - CHEMISTRY PATRICIA CASIANO Performing Organization Address City/[facility]/ZIP Co de Phone Number [facility] [address] [place] [address], [place] [phone] * OSMOLALITY BLOOD (08/20/2022 2:50 AM CDT) Osmolality 289 270 - 300 mOsm/kg 08/20/2022 4:11 AM CDT [facility] Blood BLOOD SPECIMEN / Unknown Lab Venipuncture / Unknown 08/20/2022 2:50 AM CDT 08/20/2022 3:00 AM CDT Héctor Silva MD LAB - CHEMISTRY PATRICIA CASIANO Performing Organization Address City/[facility]/ZIP Co de Phone Number [address] [address], [place] [phone] * (ABNORMAL) URINALYSIS REFLEX TO MICROSCOPIC NO CULTURE (08/19/2022 1:00 PM CDT) Color UA Yellow Straw, Yellow 08/22/2022 3:46 PM CDT [facility] Clarity UA Slt Cloudy(A) Clear 08/22/2022 3:46 PM CDT [facility] Specific [place] UA 1.011 1.005 - 1.030 08/22/2022 3:46 PM CDT [facility] pH UA 5.0 5.0 - 8.0 pH 08/22/2022 3:46 PM CDT [facility] Protein UA 2+(A) Negative 08/22/2022 3:46 PM CDT [facility] Glucose UA Negative Negative 08/22/2022 3:46 PM CDT [facility] Ketone UA Negative Negative 08/22/2022 3:46 PM CDT [facility] Bilirubin UA Negative Negative 08/22/2022 3:46 PM [facility] Blood UA Negative Negative 08/22/2022 3:46 PM [facility] Nitrite UA Negative Negative 08/22/2022 3:46 PM [facility] Leukocyte Esterase 2+(A) Negative 08/22/2022 3:46 PM [facility] Urobilinogen UA Negative Negative mg/dL 08/22/2022 3:46 PM [facility] RBC UA 0-2 None Seen, 0-2, 3-5 /HPF 08/22/2022 3:46 PM T [facility] Comment:This is an appended report. These results have been appended to a previously final verified report. WBC UA 11-20(A) None Seen, 0-5 /HPF 08/22/2022 3:46 PM [facility] Comment:This is an appended report. These results have been appended to a previously final verified report. Bacteria UA Trace(A) None /HPF 08/22/2022 3:46 PM [facility] Comment:This is an appended report. These results have been appended to a previously final verified report. Squamous Epithelial Cells UA 0-2 None Seen, 0-2, 3-5 /HPF 08/22/2022 3:46 PM T [facility] Comment:This is an appended report. These results have been appended to a previously final verified report. Urine URINE SPECIMEN OBTAINED BY CLEAN CATCH PROCEDURE / Unknown Collection / Unknown 08/19/2022 1:00 PM CDT 08/19/2022 1:04 PM CDT Narrative [facility] - 08/22/2022 3:46 PM CDT Héctor Silva MD LAB - URINALYSIS ORD ERABLES [facility] [address] [place] [address], [facility] [phone] * (ABNORMAL) PROTEIN CREATININE RATIO URINE RANDOM PNL (08/19/2022 1:00 PM CDT) Protein Urine 163 Not Established mg/dL 08/19/2022 1:41 PM [facility] Creatinine Urine 96 Not Established mg/dL 08/19/2022 1:41 PM [facility] Protein/Creati nine Ratio Urine 1.70(H) <0.10 08/19/2022 1:41 PM [facility] Urine URINE SPECIMEN OBTAINED BY CLEAN CATCH PROCEDURE / Unknown Collection / Unknown 08/19/2022 1:00 PM CDT 08/19/2022 1:04 PM CDT Héctor Silva MD LAB - URINE CHEMISTR Y ORDERABLES Performing Organization Address City/[facility]/ZIP Co de Phone Number [address] [address], [facility] [phone] * (ABNORMAL) PROTEIN ELECTROPHORESIS URINE TIMED (08/19/2022 1:00 PM CDT) Interpretation Urine PE See Comment Normal Pattern 08/26/2022 10:48 PM [facility] Comment: Urine protein electrophoresis shows bands corresponding to albumin and transferrin along with small amounts of other nonspecific proteinuria. ?? No monoclonal immunoglobulins detected. Terry Burnham PhD, [facility] Clinical Bioengineer operations general agent Protein Urine 146 Not Established mg/dL 08/26/2022 10:48 PM [facility] Volume Timed Urine 489 mL 2021 10:48 PM [facility] Collection Time Timed Urine 8 Hrs 08/26/2022 10:48 PM [facility] Protein 24 Hour Urine 714(H) 77 - 197 mg/24 hrs 08/26/2022 10:48 PM [facility] Protein Total Timed Urine 714 Not established for collection periods other than 24 Hrs. mg/X hrs 08/26/2022 10:48 PM [facility] Urine TIMED URINE SPECIMEN / Unknown Timed Urine Volume Measurement / Unknown 08/19/2022 1:00 PM CDT 08/19/2022 1:04 PM CDT Héctor Silva MD LAB - URINE CHEMISTR Y ORDERABLES [address] [place] [address], [facility] [phone] * IMMUNOFIXATION BLOOD (08/19/2022 10:56 AM CDT) Immunofixation Serum Normal Pattern Normal Pattern 08/26/2022 10:48 PM CDT [facility] Comment: No monoclonal immunoglobulin detected by serum immunosubtraction. Terry Burnham PhD, [facility] Clinical Bioengineer operations general agent *The electrophoresis pattern and the interpretation have been reviewed and verified by the teaching physician. Blood BLOOD SPECIMEN / Unknown Venipuncture / Unknown 08/19/2022 10:56 AM CDT 08/19/2022 11:02 AM CDT Héctor Silva MD LAB - CHEMISTRY PATRICIA CASIANO [address] [address], [facility] [phone] * (ABNORMAL) PROTEIN ELECTROPHORESIS BLOOD (08/19/2022 10:56 AM CDT) Interpretation Serum PE Normal Pattern Normal Pattern 08/26/2022 10:48 PM CDT [facility] Comment: Serum capillary electrophoresis shows [...] - 8.3 g/dL 08/26/2022 10:48 PM CDT [facility] Albumin 3.1(L) 3.3 - 5.6 g/dL 08/26/2022 10:48 PM CDT [facility] Alpha-1 Globulins 0.3 0.2 - 0.4 g/dL 08/26/2022 10:48 PM CDT [facility] Alpha-2 Globulins 0.7 0.5 - 1.0 g/dL 08/26/2022 10:48 PM CDT [facility] Beta Globulins 0.5(L) 0.6 - 1.1 g/dL 08/26/2022 10:48 PM CDT [facility] Gamma Globulins 0.3(L) 0.6 - 1.6 g/dL 08/26/2022 10:48 PM CDT [facility] Blood BLOOD SPECIMEN / Unknown Venipuncture / Unknown 08/19/2022 10:56 AM CDT 08/19/2022 11:02 AM CDT Héctor Silva MD LAB - CHEMISTRY PATRICIA CASIANO [address] [address], [place] [phone] * TRANSFUSE RED BLOOD CELL LEUKOREDUCED UNIT(S) (08/19/2022 2:37 AM CDT) Aroldo Rivera CAREER ORIENTATION TEACHER-[facility] - BLOOD CA OD TRANSFUSION * BLOOD TYPE VERIFICATION (08/18/2022 7:52 PM CDT) ABO Rh A NEG 08/18/2022 9:1 4 PM CDT [facility] Blood Bank BLOOD SPECIMEN / Unknown Lab Venipuncture / Unknown 08/18/2022 7:52 PM CDT 08/18/2022 7:58 PM CDT Katherine Lai MD LAB - BLOOD BANK ORD ELICEO [facility] [address] [place] [address], [place] [phone] * (ABNORMAL) PROTEIN TOTAL BLOOD (08/17/2022 4:05 AM CDT) Protein Total 5.1(L) 6.0 - 8.3 g/dL 08/17/2022 2:34 PM CDT [facility] Blood BLOOD SPECIMEN / Unknown Lab Venipuncture / Unknown 08/17/2022 4:05 AM CDT 08/17/2022 4:20 AM CDT Héctor Silva MD LAB - CHEMISTRY PATRICIA ACSIANO [address] [address], [facility] [phone] * (ABNORMAL) ALBUMIN BLOOD (08/17/2022 4:05 AM CDT) Albumin 2.8(L) 3.4 - 5.0 g/dL 08/17/2022 2:34 PM CDT [facility] Blood BLOOD SPECIMEN / Unknown Lab Venipuncture / Unknown 08/17/2022 4:05 AM CDT 08/17/2022 4:20 AM CDT Aroldo Rivera CAREER ORIENTATION TEACHER[facility] LAB - CHEMISTRY OR DERABLES Performing Organization Address [facility]/ZIP Co de Phone Number [address] [address], [facility] [phone] * (ABNORMAL) URINALYSIS W/MICROSCOPIC NO CULTURE (08/16/2022 9:42 AM CDT) Only the most recent of2 resultswithin the time period is included. Color UA Yellow Straw, Yellow 08/16/2022 9:57 AM CDT [facility] Clarity UA Slt Cloudy(A) Clear 08/16/2022 9:57 AM CDT [facility] Specific [place] UA 1.014 1.005 - 1.030 08/16/2022 9:57 AM CDT [facility] pH UA 6.0 5.0 - 8.0 pH 08/16/2022 9:57 AM CDT [facility] Protein UA 3+(A) Negative 08/16/2022 9:57 AM CDT [facility] Glucose UA Negative Negative 08/16/2022 9:57 AM CDT [facility] Ketone UA Negative Negative 08/16/2022 9:57 AM CDT [facility] Bilirubin UA Negative Negative 08/16/2022 9:57 AM CDT [facility] Blood UA Negative Negative 08/16/2022 9:57 AM CDT [facility] Nitrite UA Negative Negative 08/16/2022 9:57 AM CDT [facility] Leukocyte Esterase Negative Negative 08/16/2022 9:57 AM CDT [facility] Urobilinogen UA Negative Negative mg/dL 08/16/2022 9:57 AM CDT [facility] RBC UA 0-2 None Seen, 0-2, 3-5 /HPF 08/16/2022 9:57 AM CDT [facility] WBC UA 0-5 None Seen, 0-5 /HPF 08/16/2022 9:57 AM CDT [facility] Bacteria UA Trace(A) None /HPF 08/16/2022 9:57 AM CDT [facility] Squamous Epithelial Cells UA None Seen None Seen, 0-2, 3-5 /HPF 08/16/2022 9:57 AM CDT [facility] Hyaline Casts UA 0-2 None Seen, 0-2 /LPF 08/16/2022 9:57 AM CDT [facility] Urine URINE SPECIMEN OBTAINED BY SINGLE CATHETERIZATION OF URINARY BLADDER / Unknown Collection / Unknown 08/16/2022 9:42 AM CDT 08/16/2022 9:47 AM CDT Narrative [facility] - 08/16/2022 9:57 AM CDT Héctor Silva MD LAB - URINALYSIS ORD ERABLES [facility] [address] [place] [address], [facility] [phone] * ECHO COMPLETE W BUBBLE STUDY (08/16/2022 9:30 AM CDT) Anatomical Region Laterality Modality Chest Echo 08/16/2022 8:56 AM CDT Narrative Procedure Note Catarina Dobbins MD - 08/16/2022 Héctor Silva MD ECHOCARDIOGRAPHY RAD IANT * HEMOGLOBIN A1C (08/16/2022 12:44 AM CDT) Only the most recent of2 resultswithin the time period is included. Hemoglobin A1c 5.4 <=5.6 % 08/16/2022 10:18 AM CDT [facility] Estimated Average Glucose 108 mg/dL 08/16/2022 10:18 AM CDT [facility] Comment: HbA1c Interpretation: Normal : < 5.7% Pre-diabetes: 5.7-6.4% Diabetes: Equal to or greater than 6.5% Test results diagnostic of diabetes should be repeated for confirmation. Treatment target values recommended by ADA and other clinical organizations should be used to evaluate metabolic control in patients. Reference: [place] Diabetes Association, Standards of Care in Diabetes [...] Silva MD LAB - CHEMISTRY PATRICIA CASIANO [facility] Organization Address City/State/ZIP Co de Phone Number [facility] [address] [place] [address], [facility] [phone] * MRI ANGIO BRAIN ARTERIAL WO CONT [...] DATE/TIME OF EXAM: ??08/15/2022 10:25 PM, LOCATION ??[facility] INDICATION: I61.9: Hemorrhagic stroke (CMS/HCC) ADDITIONAL CLINICAL INFORMATION: Ordering Provider Reason For Exam: ??Hemiorrhagic stroke (accession [id number]), vascular malformation (accession [id number]) Technologist Note: ??Does the patient have metal implants or stents?->No Additional: ??Kirsty Gutierrez a 81 year old F who developed sudden on nausea and vomiting on 08/15. 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 Transferred to [facility] for further management. CONTRAST: ??GADOTERATE MEGLUMINE [...] DATE/TIME OF EXAM: 08/15/2022 10:25 PM, LOCATION [facility] INDICATION: I61.9: Hemorrhagic stroke (CMS/HCC) ADDITIONAL CLINICAL INFORMATION: Ordering Provider Reason For Exam: Hemiorrhagic stroke (accession [id number]), vascular malformation (accession [id number]) Technologist Note: Does the patient have metal implants or stents?->No Additional: Kirsty Gutierrez a 81 year old F who developed sudden on nausea and vomiting on 08/15. Went to an OSH where CT head showedpontine ICH. Transferred to [facility] for further management. CONTRAST: GADOTERATE MEGLUMINE [...] DATE/TIME OF EXAM: ??08/15/2022 10:25 PM, LOCATION ??[facility] INDICATION: I61.9: Hemorrhagic stroke (CMS/HCC) ADDITIONAL CLINICAL INFORMATION: Ordering Provider Reason For Exam: ??Hemiorrhagic stroke (accession [id number]), vascular malformation (accession [id number]) Technologist Note: ??Does the patient have metal implants or stents?->No Additional: ??Kirsty Gutierrez a 81 year old F who developed sudden on nausea and vomiting on 08/15. 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 Transferred to [facility] for further management. CONTRAST: ??GADOTERATE MEGLUMINE [...] DATE/TIME OF EXAM: 08/15/2022 10:25 PM, LOCATION [facility] INDICATION: I61.9: Hemorrhagic stroke (CMS/HCC) ADDITIONAL CLINICAL INFORMATION: Ordering Provider Reason For Exam: Hemiorrhagic stroke (accession [id number]), vascular malformation (accession [id number]) Technologist Note: Does the patient have metal implants or stents?->No Additional: Kirsty Gutierrez a 81 year old F who developed sudden on nausea and vomiting on 08/15. Went to an OSH where CT head showedpontine ICH. Transferred to [facility] for further management. CONTRAST: GADOTERATE MEGLUMINE [...] TO PATIENT. PATIENT ADVISED Test Performed at: [facility] [address] [place], [place] ??[address] CECILIA FARIAS DO,MPH 03/09/2022 1:12 PM CDT 03/09/2022 1:17 PM CDT Diana Mao MD LAB - CHEMISTRY PATRICIA CASIANO Performing Organization Address [facility] de Phone Number [facility] [address] [place] [address] * (ABNORMAL) CULTURE URINE COMPREHENSIVE (09/29/2021 10:35 AM GROUP CARE WORKER) Pathologist [facility] Culture (A) [facility] Comment: ??CULTURE, URINE, SPECIAL ?Micro Number: ?[id number] ??Test Status: ? Final ??Specimen Source: ?? Other (specify) ??Specimen Quality: ??Adequate ??Result: ?10,000-49,000 CFU/mL of Corynebacterium species ? May represent colonizers from external and ? internal genitalia. No further testing (including ? susceptibility) will be performed. REPORT COMMENT: FASTING:UNKNOWN Test Performed at: [facility] [place] [address] [place], [place] ??[phone] CECILIA FARIAS DO,MPH Microbiology URINE SPECIMEN COLLECTION, CATHETERIZED / Unknown 09/29/2021 10:35 AM GROUP CARE WORKER 09/29/2021 1:03 PM GROUP CARE WORKER Santiago Mar MD LAB - MICROBIOLOGY O RDERABLES Performing Organization Address [facility]/State/[facility] Co de Phone Number [facility] [address] [place] [address] * CA INSERT NON-INDWELLING BLADDER (09/29/2021 10:31 AM GROUP CARE WORKER) Narrative Santiago Mar Che, MD - 09/29/2021 10:31 AM GROUP CARE WORKER Santiago Mar Che, MD ? 09/29/2021 10:31 [...] POCT neg Ketones UA POCT neg Specific [place] UA 1.020 Blood Urine POCT neg pH UA 6.0 Protein UA ++ Urobilinogen UA 0.2 Nitrite UA neg WBC UA neg Urine URINE / Unknown 09/29/2021 Santiago Mar MD LAB - POINT OF CARE ORDERABLES * DERMATOPATHOLOGY (01/08/2021 12:00 AM GROUP CARE WORKER) Only the most recent of2 resultswithin the time period is included. Case Report Dermatopathology Report ? Case: [id number] ? Authorizing Provider: ??Johnny Dodson Jr., MD [...] characteristic determined by the Dermatopathology Laboratory at [facility], directed by Dr. Christine Iraheta. These tests need not be, and therefore are not, approved by the [place] Food and Drug Administration. The tests are used for clinical purposes. Billing Codes Specimen Charges Stain Charges 11646 1 1 1:51 PM CDT DERMATOPATHOLOGY LABORATORY Embedded Images 1 1:51 PM CDT DERMATOPATHOLOGY LABORATORY Pathology/Cytolog y TISSUE SPECIMEN FROM SKIN / Unknown 01/08/2021 01/09/2021 10:42 AM GROUP CARE WORKER Johnny Dodson Jr., MD LAB - PATHOLOGY /CYTOLOGY ORDERABLES DERMATOPATHOLOGY LABORATORY [facility] - Department of Dermatology [address], [address] [phone] * PATHOLOGY/CYTOLOGY REPORT ORDER (01/08/2021) Narrative 01/08/2021 [...] OSEGUERA on 07/30/2020 2:03PM . Tariq Antoine APRN-[facility] ORDERABLES * TSH (01/04/2020 3:15 PM GROUP CARE WORKER) TSH 2.452 0.350 - 4.940 uIU/mL 01/04/2020 5:19 PM GROUP CARE WORKER [facility] Blood BLOOD SPECIMEN / Unknown Lab Venipuncture / Unknown 01/04/2020 3:15 PM GROUP CARE WORKER 01/04/2020 3:56 PM GROUP CARE WORKER Diana Mao MD LAB - CHEMISTRY PATRICIA CASIANO [facility] Organization Address City/State/ZIP Co de Phone Number [address] [phone] * LAB RESULTS ORDER (05/18/2019 8:40 AM CDT) Only the most recent of3 resultswithin the time period is included. Narrative 05/18/2019 8:40 AM CDT Ordered by an unspecified provider. Scanned Document LAB - THERAPEUTIC DR MACRY MONITORING ORDERABLES * ECHO 2D ONLY WO COLOR OR DOPPLER (06/20/2015 3:24 PM CDT) Anatomical Region Laterality Modality Other Narrative 06/20/2015 3:24 PM CDT NAME: Kirsty Rea : 1940 AGE: 74 y.o. SEX: female Referring Physician: Freeman Cardona MD [facility] [place] [address] Ordering Physician: Dr. Cardona Primary Care Physician: Aj Michelle Date of Test: 06/17/15 TAPE#: ?? Manager Primary Care: DAVID Height: 5' 7 (170.2 cm) Weight: [...] Referring Physician: Freeman Cardona MD [address] [facility] [address] [place] [address] Ordering Physician: Dr. Cardona Primary Care Physician: Aj Michelle Date of Test: 06/17/15 TAPE#: Manager Primary Care: BA Height: 5' 7 (170.2 cm) Weight: [...] AM CDT) RPR Non Reactive Non Reactive [facility] ([email or web address]) 06/26/2014 9:43 AM CDT 06/26/2014 12:22 PM CDT Narrative [facility] (JERE) - 07/01/2014 3:07 PM CDT Performed at: ??[address] - [address] ??[id number] [facility] Instructor: Jesús Woo PhD, Phone: ??[phone] Specimen Comment: A courtesy copy of this report has been sent to Specimen Comment: [phone]. Diana Mao MD LAB - CHEMISTRY PATRICIA CASIANO [facility] (BEAKER) * CREATININE BLOOD (10/31/1998 12:00 AM GROUP CARE WORKER) Creatinine 1.1 mg/dL [facility] 10/31/1998 Narrative [facility] - 10/31/1998 12:00 AM GROUP CARE WORKER This external order was created through the Results Console. Historical Provider LAB - CHEMISTRY O SARIKA Performing Organization Address [facility]/ZIP Co de Phone Number [facility] * CALCIUM BLOOD (10/31/1998 12:00 AM GROUP CARE WORKER) Calcium 9.6 mg/dL [facility] Blood specimen (specimen) BLOOD SPECIMEN / Unknown 10/31/1998 Narrative [facility] - 10/31/1998 12:00 AM GROUP CARE WORKER This external order was created through the Results Console. [facility] Provider LAB - CHEMISTRY Rosalina BAUM Performing Organization Address [facility] Co de Phone Number [facility] * BUN (10/31/1998 12:00 AM GROUP CARE WORKER) BUN 30.0 mg/dL [facility] Blood specimen (specimen) BLOOD SPECIMEN / Unknown 10/31/1998 Narrative [facility] - 10/31/1998 12:00 AM GROUP CARE WORKER This external order was created through the Results Console. Historical Provider LAB - CHEMISTRY O SARIKA Performing Organization Address City/[facility]/ZIP Co de Phone Number [facility] * LIPID PROFILE (10/31/1998 12:00 AM GROUP CARE WORKER) Cholesterol Total [facility] HDL 90 mg/dL [facility] Triglycerides 95.0 mg/dL [facility] LDL Calculated [facility] Cholesterol 249.0 mg/dL [facility] LDL Calculated 140.0 mg/dL [facility] Blood specimen (specimen) BLOOD SPECIMEN / Unknown 10/31/1998 Narrative [facility] - 10/31/1998 12:00 AM GROUP CARE WORKER This external order was created through the Results Console. Historical Provider LAB - CHEMISTRY O RDERABLES [facility] Care Teams Resident Physician In Radiology Relationship Specialty Start Date End Date Yanira Meyers, CAREER ORIENTATION TEACHER-[facility] [address] [place] [address] PCP - General Nurse Practitioner Family 06/15/23
--- OUTSIDE RECORDS SUMMARY | 2024-10-16 00:27 | XMS_ITS | Encounter Summary ---
Author Organization [facility] Address [address] [facility] [place] [address] Care Team Providers Care Dean Of Instruction Name Role Phone Yanira Meyers AUDIO TECHNICIAN-SUPERVISOR IRRIGATION Primary Care Provid er Reason for Referral * Radiology Services (Routine) - Pending Review Specialty Diagnoses / Procedures Referred By Contac t Referred To Contact Vascular Lab Diagnoses ESRD (end stage renal disease) (HCC) Procedures IR ANGIO AV SHUNT IMAGING Keyshawn Krueger MD [address] [place] [address], [address] [place] [address] Referral ID Status Reason Start Date Expiration Date V isits Requested Visits Authorized [id number] Pending Review 05/15/2024 05/15/2025 1 1 * Radiology Services (Routine) - Closed Specialty Diagnoses / Procedures Referred By Contac t Referred To Contact Vascular Lab Diagnoses ESRD (end stage renal disease) (HCC) Procedures IR [place] [address] [facility] [address] [place] [address] [facility] [address] [facility], [address] [place] [address] Referral ID Status Reason Start Date Expiration Date Visits Re quested Visits Authorized [id number] Closed 03/27/2024 05/15/2024 1 1 Reason for Visit * Radiology Services (Routine) - Closed Specialty Diagnoses / Procedures Referred By Contac t Referred To Contact Vascular Lab Diagnoses ESRD (end stage renal disease) (HCC) Procedures IR ANGIO AV SHUNT IMAGING Jarett Reinoso MD [address] [place] [address] [facility] Vascular Center [id number] [place] [address], [address] [address] Referral ID Status Reason Start Date Expiration Date Visits Re quested Visits Authorized [id number] Closed 11/09/2023 11/08/2024 1 1 Encounter Details Date Type Department Care Team (Latest Contact Info) Description 05/15/2024 9:35 AM CDT - 05/15/2024 11:59 PM CDT Hospital Encounter [facility] Health Vascular Services [id number] [place] [address], [facility] [address] [place] [address] Jarett Reinoso MD [address] [place] [address] Christine Benitez MD [address] [place] [phone] Keyshawn Krueger MD [address] [place] [address] Discharge Disposition: Home or Self Care Social [...] kidney disease) stage 3, GFR 30-59 ml/min ([facility]) proteinuria; Sustainable Design Consultant = Dr. 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 Over the wire, peripheral venoplasty was [...] st Contact Info) Description 12/11/2024 10:30 AM SUBSCRIPTION AGENT Appointment [facility] Vascular Services [address] [place] [address] [address] [place] [address] Jarett Reinoso MD [address] [place], [place] [address] Christine Benitez MD [address] [place] [phone] Keyshawn Krueger MD [address] [place] [address] [place] [address] [phone] Pending Results Name Type Priority Associated Diagnoses Date /Time IR ANGIO AV SHUNT IMAGING Imaging Routine ESRD (end stage renal disease) ([facility]) 08/16/2024 10:42 AM CDT Scheduled Orders Name Type Priority Associated Diagnoses Orde r Schedule IR ANGIO AV SHUNT IMAGING Imaging Routine ESRD (end stage renal disease) ([facility]) 1 Occurrences starting 05/15/2024 until 05/15/2025 documented [...] Notes Date: ??05/15/2024 Surgeon: Keyshawn Krueger MD Culinary Intern: none Pre-Procedure diagnosis: ESRD; prolonged bleeding after [...] over the wire for a short 6 Northern Irish sheath. ??Over the wire, peripheral venoplasty was [...] mg documented in this encounter Care Teams Dean Of Instruction Relationship Specialty Start Date End Date Yanira Meyers, AUDIO TECHNICIAN-SUPERVISOR IRRIGATION [facility] [place] [address] PCP - General Nurse Practitioner Family 06/15/23 documented as of this encounter
--- OUTSIDE RECORDS SUMMARY | 2024-10-16 00:27 | XMS_ITS | Referral Summary ---
Author Organization [facility] Address [address] [facility] [place] [address] Care Team Providers Care Crew Caller Name Role Phone Yanira Meyers ASSESSMENT COUNSELOR-PAVER Primary Care Provid er Source Comments [facility],non-owned Affiliates and Associated Physician Practices is amultiple site organization consisting of ambulatory clinics and hospital sitesin [place], [place], [place] and [place]. This disclosure is being madepursuant to the Care Everywhere program and may not contain all information available regarding this patient. Last updated 18.[facility] Encounters Date Type Department Care Team Description 08/16/2024 9:21 AM CDT - 08/16/2024 11:59 PM CDT Hospital Encounter [facility] Vascular Services [address] [place] [address], [place] [id number] Jarett Reinoso MD Majeed, M. Fazal, MD [...] st Contact Info) Description 12/11/2024 10:30 AM RAIL SIGNAL MECHANIC Appointment [facility] Vascular Services [address] [facility], [address] [address] Jarett Reinoso MD [address] [place] [address] Christine Benitez MD [address] [place] [phone] Keyshawn Krueger MD [address] [place], [place] [phone] [place] [address] [address] Medical Devices Implanted Type Area Equipment Associate Device Identifier Shelf Expiration Date Model / Serial / Lot Kit Durathdinesh Littlejohnflmikhail Embosafe Chrnc Dlys Implanted:Qty: 1 on 08/25/2022 at [facility] Right: Chest [employer] 11/30/2024 [id number] / / [id number] Graft Vasc 4-7mm 45cm Grtx Std Tpr - [id number] Implanted:Qty: 1 on 06/15/2023 by Leland Thompson MD at [facility] Left: Arm [employer] 03/05/2028 [id number] / [id number] / Procedures Procedure Name Priority Date/Time Associated Diagnosis Comments CARDIAC RHYTHM STRIP ORDER 08/21/2024 4:38 PM CDT from Last 3 Months Results * CARDIAC RHYTHM STRIP ORDER (08/21/2024 4:38 PM CDT) Narrative 08/21/2024 4:38 PM CDT Ordered by an unspecified provider. Scanned Document CARDIAC SERVICES ORD ERABLES from Last 3 Months Advance Directives Documents on File Type Date Recorded Patient Electric Meter Repairer Helper Expl anation Adv Directive/Living Will/POA 09/03/2022 11:51 AM Adv Directive/Living Will/POA 08/27/2022 5:38 PM * Full Code (Latest Code Status on File) Date Activated Date Inactivated Comments 09/30/2023 12:06 AM 10/05/2023 3:27 PM * Full Code Date Activated Date Inactivated Comments 08/15/2022 3:11 AM 09/09/2022 7:35 PM Care Teams Crew Caller Relationship Specialty Start Date End Date Yanira Meyers, ASSESSMENT COUNSELOR-PAVER [address] [place] [address] PCP - General Nurse Practitioner Family 06/15/23
--- OUTSIDE RECORDS SUMMARY | 2024-10-16 00:27 | XMS_ITS | Encounter Summary ---
Author Organization [facility] Address [address] [facility] [place] [address] Care Team Providers Care Requirements Engineer Name Role Phone Yanira Meyers TECHNICAL SALES ENGINEER-PROSTHETIST Primary Care Provid er Reason for Referral * Radiology Services (Routine) - Closed Specialty Diagnoses / Procedures Referred By Abena torrez Referred To Contact Vascular Lab Diagnoses ESRD (end stage renal disease) (HCC) Procedures IR ANGIO AV SHUNT IMAGING Christine Benitez MD [address] [place] [address], [address] [address] Referral ID Status Reason Start Date Expiration Date Visits Re quested Visits Authorized [id number] Closed 02/15/2024 02/14/2025 1 1 * Radiology Services (Routine) - Closed Specialty Diagnoses / Procedures Referred By Abena torrez Referred To Contact Vascular Lab Diagnoses ESRD (end stage renal disease) (HCC) Procedures IR ANGIO AV SHUNT IMAGING Christine Benitez MD [address] [place] [address], [address] [place] [address] Referral ID Status Reason Start Date Expiration Date Visits Re quested Visits Authorized [id number] Closed 02/15/2024 02/14/2025 1 1 Reason for Visit * Radiology Services (Routine) - Closed Specialty Diagnoses / Procedures Referred By Contac t Referred To Contact Vascular Lab Diagnoses ESRD (end stage renal disease) (HCC) Procedures IR ANGIO AV SHUNT IMAGING Christine Benitez MD [address] [place] [address] [facility] Vascular Center [address] [place] [address], [address] [address] Referral ID Status Reason Start Date Expiration Date Visits Re quested Visits Authorized [id number] Closed 02/15/2024 02/14/2025 1 1 Encounter Details Date Type Department Care Team (Latest Contact Info) Description 02/15/2024 9:29 AM CDT - 02/15/2024 11:59 PM CDT Hospital Encounter [facility] Vascular Services [address] [place] [address], [facility] [address] [place] [address] Jarett Reinoso MD [address] [place] [address] Christine Benitez MD [address] [place] [phone] Discharge Disposition: Home or Self Care Social [...] kidney disease) stage 3, GFR 30-59 ml/min ([facility]) proteinuria; Welfare Manager = Dr. Reyes ??? CVA (cerebral vascular accident) ([facility]) 08/14/2022 ??? Dementia without behavioral disturbance ([facility]) mild ??? ESRD on dialysis ([facility]) julian [facility] , Th 07/06/23 ??? Gout ??? [...] structures appear to be unremarkable. A 6 Lithuanian sheath was introduced over a Bentson wire [...] st Contact Info) Description 12/11/2024 10:30 AM RICE DRIER Appointment [facility] Vascular Services [address] [facility], [facility] [address] [place] [address] Jarett Reinoso MD [address] [place], [place] [address] Christine Benitez MD [address] [place] [phone] Keyshawn Krueger MD [address] [place] [address] [place] [address] [phone] documented as of this encounter Procedures Procedure Name Priority Date/Time Associated Diagnosis Comments CARDIAC RHYTHM STRIP ORDER 02/16/2024 9:19 PM CDT IR ANGIO AV SHUNT IMAGING Routine 02/15/2024 10:40 AM CDT ESRD (end stage renal disease) ([facility]) documented in this encounter Results [...] appear to be unremarkable. ?? A 6 Lithuanian sheath was introduced over a Bentson wire [...] mg documented in this encounter Care Teams Requirements Engineer Relationship Specialty Start Date End Date Yanira Meyers APRN-PROSTHETIST [facility] [place] [address] PCP - General Nurse Practitioner Family 06/15/23 documented as of this encounter
--- OUTSIDE RECORDS SUMMARY | 2024-10-16 00:28 | XMS_ITS | Encounter Summary ---
Author Organization [facility] Address [address] [facility] [place] [address] Care Team Providers Care Closing Supervisor Name Role Phone RuizkyrieYanira DOUBLE NEEDLE OPERATOR LOCKSTITCH-SCRAP SHEAR OPERATOR Primary Care Provid er Reason for Visit * Auth/Cert (Routine) Specialty Diagnoses / Procedures Referred By Abena torrez Referred To Contact Procedures INSERTION GRAFT ARTERIO-VENOUS (AV) ARM Referral ID Status Reason Start Date Expiration Date Visits Re quested Visits Authorized [id number] 1 1 Encounter Details Date Type Department Care Team (Latest Contact Info) Description 06/15/2023 10:11 AM CDT - 06/15/2023 3:30 PM CDT Hospital Encounter [facility] hospital - Perioperative Surgery [address] [place] [address] [place] [address] [facility] [address] [place] [address] Surgery General Discharge Disposition: Home [...] mouth once daily 03/29/2023 10/05/2023 HYDROcodone-acetamin ophen ([place]) 5-325 MG tabletIndications:ES RD (end stage renal [...] 4:58 PM CDT Spoke to Shayy at [facility]. Pt to be transported by daughter and [...] female. The patient is referred by her baby formula mixer for a catheter that was not working well. She has never had evaluation for access in the past. PCP is Diana Mao MD. She is right handed. She has poor peripheral veins there difficult to get IVs. ?? Past Medical & Surgical History Past Medical History: Diagnosis Date ??? CKD (chronic kidney disease) stage 3, GFR 30-59 ml/min (CMS/HCC) ? proteinuria; Manager Property = Dr. Reyes ??? HTN (hypertension), benign [...] Thompson MD - 06/15/2023 3:[address] [facility] OPERATIVE REPORT PATIENT: : YOLANDE REA MR#: [id number] ADMIT DATE: 06/15/2023 CSN: [id number] DATE OF SURGERY: 06/15/2023 : 1940 PHYSICIAN: Leland Thompson MD ROOM: [facility] PREOPERATIVE DIAGNOSIS: End-stage renal disease. POSTOPERATIVE DIAGNOSIS: End-stage renal disease. PROCEDURE PERFORMED: Left upper extremity arterial venous graft placement, brachial artery to axillary vein. SURGEON: Leland Thompson M.D., FACS. POURER METAL: TWAN. ESTIMATED BLOOD LOSS: 50 cc. COMPLICATIONS: [...] A 4 mm to 7 mm stretch Lindsay-Bruce graft was then tunneled using the Agnes-Wick [...] satisfactory condition. Leland Thompson MD JSG/MODL #: [id number] * Brief Op Note - Leland Thompson MD - 06/15/2023 12:27 PM CDT Brief Post Operative Note Preoperative Diagnosis: ESRD Postoperative Diagnosis: ESRD Procedure: Left upper arm av graft Surgeon: Leland Thompson MD Legal Clerk: TWAN Type of anesthesia: Regional Complications: none EBL: 50 cc Drains: none documented in this encounter Plan of Treatment Upcoming Encounters Date Type Department Care Team (Late st Contact Info) Description 12/11/2024 10:30 AM MANAGER DIESEL Appointment [facility] Vascular Services [address] [place] [address], [place] [phone] Jarett Reinoso MD [address] [place], [place] [address] Christine Benitez MD [address] [place] [address] Keyshawn Krueger MD [address] [place], [place] [phone] [place] [address] [address] documented as of this encounter Procedures Procedure Name Priority Date/Time Associated Diagnosis Comments ID INSERT CANNULA,ART-GEORGINA,EXT JARED 06/15/2023 12:00 PM CDT [...] - 1.11 mg/dL 06/15/2023 11:10 AM CDT [facility] eGFR by CKD-EPI 11(L) >=90 mL/min/1.7 3 m2 06/15/2023 11:10 AM CDT [facility] Blood BLOOD SPECIMEN / Unknown Venipuncture / Unknown 06/15/2023 10:46 AM CDT 06/15/2023 10:55 AM CDT Zohra Peng DO LAB - CHEMISTRY PATRICIA CASIANO [facility] [address] [place] [address] documented in this encounter Visit [...] New Bag/Syri nge - Provider: Josie Sylvester APRN-KILN WORKER)1357 (Stopped - Provider: Vinnie Mares RN) PRN [...] Pre-op documented in this encounter Care Teams Closing Supervisor Relationship Specialty Start Date End Date Yanira Meyers, DOUBLE NEEDLE OPERATOR LOCKSTITCH-SCRAP SHEAR OPERATOR [address] [place] [address] PCP - General Nurse Practitioner Family 06/15/23 documented as of this encounter
--- OUTSIDE RECORDS SUMMARY | 2024-10-16 00:28 | XMS_ITS | Encounter Summary ---
Author Organization [facility] Address [address] [facility] [place] [address] Care Team Providers Care Electric Truck Driver Name Role Phone Diana Mao MD Primary Care Provider [phone] Reason for Referral * Radiology Services (Routine) - Closed Specialty Diagnoses / Procedures Referred By Contac t Referred To Contact Vascular Lab Diagnoses ESRD (end stage renal disease) (HCC) Procedures IR CENTRAL LINE Christine Sebastian MD [address] [place] [address] [address] Referral ID Status Reason Start Date Expiration Date Visits Re quested Visits Authorized [id number] Closed 03/23/2023 03/22/2024 1 1 * Radiology Services (Routine) - Closed Specialty Diagnoses / Procedures Referred By Contac t Referred To Contact Vascular Lab Diagnoses ESRD (end stage renal disease) (HCC) Procedures IR CENTRAL LINE Christine Sebastian MD [address] [place] [address], [address] [address] Referral ID Status Reason Start Date Expiration Date Visits Re quested Visits Authorized [id number] Closed 03/23/2023 03/22/2024 1 1 Reason for Visit * Radiology Services (Routine) - Closed Specialty Diagnoses / Procedures Referred By Contac t Referred To Contact Vascular Lab Diagnoses ESRD (end stage renal disease) (HCC) Procedures IR CENTRAL LINE REPLACE Christine Benitez MD [address] [place] [address] [facility] Vascular Center [address] [place] [address] Referral ID Status Reason Start Date Expiration Date Visits Re quested Visits Authorized [id number] Closed 03/23/2023 03/22/2024 1 1 Encounter Details Date Type Department Care Team (Latest Contact Info) Description 03/23/2023 12:42 PM CDT - 03/23/2023 11:59 PM CDT Hospital Encounter [facility] Health Vascular Services [address] [place] [address], [address] [address] Christine Benitez MD [address] [place] [address] Discharge Disposition: Home or Self Care [...] eyes once daily 2.5 mL 12/28/2021 04/07/2023 [place]-3 Fatty Acids (FISH OIL) 1200 MG 3 [...] kidney disease) stage 3, GFR 30-59 ml/min ([facility]) proteinuria; Junior Linux Administrator = Dr. Reyes ??? HTN (hypertension), benign ??? 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 Morphea ??? [...] Reported on 03/23/2023) 2.5 mL 0 ??? [place]-3 Fatty Acids (FISH OIL) 1200 MG (Patient [...] st Contact Info) Description 12/11/2024 10:30 AM STONE ENGRAVER Appointment [facility] Vascular Services [address] [facility] [address] [place] [address] Jarett Reinoso MD [address] [place] [address] Christine Benitez MD [address] [place] [address] Keyshawn Krueger MD [address] [place] [address] [place] [address] [phone] documented as of this encounter Procedures Procedure [...] mg documented in this encounter Care Teams Electric Truck Driver Relationship Specialty Start Date End Date Diana Mao MD [address] [place] [address] PCP - General 08/05/17 06/14/23 documented as of this encounter
--- OUTSIDE RECORDS SUMMARY | 2024-10-16 00:28 | XMS_ITS | Encounter Summary ---
Author Organization [facility] Address [address] [facility] [place] [address] Care Team Providers Care Journeyman Apprentice Electricians Name Role Phone Diana Mao MD Primary Care Provider [phone] Reason for Referral * Radiology Services (Routine) - Closed Specialty Diagnoses / Procedures Referred By Contac t Referred To Contact Vascular Lab Diagnoses Hypertensive chronic kidney disease with stage 1 through stage 4 chronic kidney disease, or unspecified chronic kidney disease Procedures IR CENTRAL VENOUS CATH CHECK Leland Thompson MD [address] [place] [address] [place] [address], [address] [address] Referral ID Status Reason Start Date Expiration Date Visits Re quested Visits Authorized [id number] Closed 03/31/2023 03/30/2024 1 1 * Radiology Services (Routine) - Closed Specialty Diagnoses / Procedures Referred By Contac t Referred To Contact Vascular Lab Diagnoses Hypertensive chronic kidney disease with stage 1 through stage 4 chronic kidney disease, or unspecified chronic kidney disease Procedures IR CENTRAL VENOUS [place] [id number] [place] [address] [address] [place] [address], [address] [place] [address] Referral ID Status Reason Start Date Expiration Date Visits Re quested Visits Authorized [id number] Closed 03/31/2023 03/30/2024 1 1 Reason for Visit * Radiology Services (Routine) - Closed Specialty Diagnoses / Procedures Referred By Contac t Referred To Contact Vascular Lab Diagnoses Hypertensive chronic kidney disease with stage 1 through stage 4 chronic kidney disease, or unspecified chronic kidney disease Procedures IR CENTRAL VENOUS CATH CHECK Leland Thompson MD [address] [place] [address] [place] [address] [facility] Vascular Center [address] [place] [address], [place] [address] Referral ID Status Reason Start Date Expiration Date Visits Re quested Visits Authorized [id number] Closed 03/31/2023 03/30/2024 1 1 Encounter Details Date Type Department Care Team (Latest Contact Info) Description 03/31/2023 2:01 PM CDT - 03/31/2023 11:59 PM CDT Hospital Encounter [facility] Health Vascular Services [address] [place] [address], [address] [address] Leland Thompson MD [address] [place] [phone] Discharge Disposition: Home or Self Care [...] eyes once daily 2.5 mL 12/28/2021 04/07/2023 [place]-3 Fatty Acids (FISH OIL) 1200 MG oxybutynin [...] kidney disease) stage 3, GFR 30-59 ml/min ([facility]) proteinuria; Manager Insurance = Dr. Reyes ??? HTN (hypertension), benign ??? 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 Morphea ??? Osteopenia Past [...] Reported on 03/23/2023) 2.5 mL 0 ??? [place]-3 Fatty Acids (FISH OIL) 1200 MG (Patient [...] CDTAssociated Order(s): IR CENTRAL VENOUS CATH CHECK [facility] Kirsty Rea 1940 DATE OF PROCEDURE: 03/31/2023 [...] st Contact Info) Description 12/11/2024 10:30 AM LACTATION NURSE Appointment [facility] Vascular Services [address] [facility], [facility] [address] [place] [address] Jarett Reinoso MD [address] [place] [address] Christine Benitez MD [address] [place] [phone] Keyshawn Krueger MD [address] [place] [address] [place] [address] [address] documented as of this encounter [...] Leland Thompson MD ? 03/31/2023 ??3:00 PM [facility] Vascular Center Kirsty Rea 1940 DATE [...] mL documented in this encounter Care Teams Journeyman Apprentice Electricians Relationship Specialty Start Date End Date Daina Mao MD [address] [place] [address] PCP - General 08/05/17 06/14/23 documented as of this encounter
--- OUTSIDE RECORDS SUMMARY | 2024-10-16 00:28 | XMS_ITS | Encounter Summary ---
Author Organization [facility] Health Address [address] [facility] [place] [address] Care Team Providers Care Junior Linux Administrator Name Role Phone Yanira Meyers CHIN STRAP MAKER-HOT ROLLER Primary Care Provid er Encounter Details Date [...] st Contact Info) Description 12/11/2024 10:30 AM ASSISTANT HAIRSTYLIST Appointment [facility] Vascular Services [address] [facility], [address] [place], [place] [phone] Jarett Reinoso MD [address] [place], [place] [address] Christine Benitez MD [address] [place] [address] Keyshawn Krueger MD [address] [place] [address] [place] [address] [phone] documented as of this encounter Visit Diagnoses Not on filedocumented in this encounter Care Teams Junior Linux Administrator Relationship Specialty Start Date End Date Yanira Meyers, DOUGIE-HOT ROLLER [address] [place] [phone] PCP - General Nurse Practitioner Family 06/15/23 documented as of this encounter
--- OUTSIDE RECORDS SUMMARY | 2024-10-16 00:28 | XMS_ITS | Encounter Summary ---
Author Organization [facility] Address [address] [place] [address] Care Team Providers Care Water Engineer Name Role Phone Yanira Meyers CUSTOMER ACCOUNT MANAGER-LEGAL LIBRARIAN Primary Care Provid er Encounter Details Date [...] st Contact Info) Description 12/11/2024 10:30 AM BARIATRIC PROGRAM COORDINATOR Appointment [facility] Vascular Services [address], [address] [place], [place] [id number] Jarett Reinoso MD [address] [place], [place] [phone] Christine Benitez MD [address] [place] [address] Keyshawn Krueger MD [address] [place] [address] [place] [address] [phone] documented as of this encounter Visit Diagnoses Not on filedocumented in this encounter Care Teams Water Engineer Relationship Specialty Start Date End Date Yanira Meyers, DOUGIE-LEGAL LIBRARIAN [address] [place] [phone] PCP - General Nurse Practitioner Family 06/15/23 documented as of this encounter
--- OUTSIDE RECORDS SUMMARY | 2024-10-16 00:28 | XMS_ITS | Encounter Summary ---
Author Organization [facility] Address [address] [place] [address] Care Team Providers Care Tank House Operator Name Role Phone Yanira Meyers EXERCISE INSTRUCTOR-CONTINUOUS IMPROVEMENT MANAGER Primary Care Provid er Reason for Referral * Radiology Services (Routine) - Closed Specialty Diagnoses / Procedures Referred By Abena torrez Referred To Contact Vascular Lab Diagnoses ESRD (end stage renal disease) (HCC) Procedures IR ANGIO AV SHUNT IMAGING Jarett Reinoso MD [address] [place] [address] [address] Referral ID Status Reason Start Date Expiration Date Visits Re quested Visits Authorized [id number] Closed 11/09/2023 11/08/2024 1 1 ALS SPECIALIST Reason for Visit * Radiology Services (Routine) - Closed Specialty Diagnoses / Procedures Referred By Abena torrez Referred To Contact Vascular Lab Diagnoses ESRD (end stage renal disease) (HCC) Procedures IR ANGIO AV SHUNT IMAGING Jarett Reinoso MD [address] [place] [address], [address] [address] Referral ID Status Reason Start Date Expiration Date Visits Re quested Visits Authorized [id number] Closed 11/09/2023 11/08/2024 1 1 Encounter Details Date Type Department Care Team (Latest Contact Info) Description 11/09/2023 9:30 AM APPEALS SPECIALIST - 11/09/2023 11:59 PM APPEALS SPECIALIST Hospital Encounter [facility] Vascular Services [address] [address] Jarett Reinoso MD [address] [place] [address] Discharge Disposition: Home or Self Care Social [...] Comments Blood Pressure 200/74 11/09/2023 10:30 AM APPEALS SPECIALIST Pulse 59 11/09/2023 10:30 AM APPEALS SPECIALIST Temperature 36.7 ??C (98.1 ??F) 11/09/2023 9:55 AM CS T Respiratory Rate 26 11/09/2023 10:30 AM APPEALS SPECIALIST Oxygen Saturation 93% 11/09/2023 10:30 AM APPEALS SPECIALIST Inhaled Oxygen Concentration - - Weight 54.4 kg (120 lb) 11/09/2023 9:55 AM APPEALS SPECIALIST Height 175.3 cm (5' 9 ) 11/09/2023 9:55 AM APPEALS SPECIALIST Body Mass Index 17.72 11/09/2023 9:55 AM APPEALS SPECIALIST documented in this encounter Functional Status Functional [...] pulsatile towards arterial anastomosis. Slightly pulsatile distally. ALS SPECIALIST documented in this encounter H&P Notes * Jarett Reinoso MD - 11/09/2023 10:02 AM CST Vascular services H&P UPDATE/SEDATION PLAN OF CARE Chief Complaint: ESRD History of Present Illness: same Past Medical History Illnesses: Past Medical History: Diagnosis Date ??? Anxiety ??? CKD (chronic kidney disease) stage 3, GFR 30-59 ml/min [place] proteinuria; Meat Seafood Associate = Dr. Reyes ??? CVA (cerebral vascular accident) [place] 08/14/2022 ??? Dementia without behavioral disturbance [place] mild ??? ESRD on dialysis [place] [facility] , 07/06/23 ??? Gout ??? HTN (hypertension), benign ??? Hyperparathyroid bone disease ([facility] s/p surgery ??? Morphea ??? Osteopenia Allergies: [...] Disease, Definite Functional Limitations Airway: Patent Monitoring: school bus monitor, continuous pulse oximetry, frequent blood pressure checks, level of consciousness, IV access and constant attendance by RN until patient recovered. ALS SPECIALIST documented in this encounter Procedure Notes * Jarett Reinoso MD - 11/09/2023 10:25 AM CSTAssociated Order(s): IR ANGIO AV SHUNT IMAGING Interventional Radiology Post Procedure-Progress Notes Surgeon: Jarett Reinoso MD Bloom Conveyor Operator: None Pre and Post Procedure diagnosis: Additional Diagnosis: ESRD (end stage renal disease) ([facility]) [N18.6]; Additional Information regarding Pre & Post [...] A fistulogram was performed through the 5 Lao transitional sheath. This shows recurrent short segment stenosis in the upper basilic vein , estimated at 80%. There isfilling of collaterals in the left upper arm. A short 6 Lao sheath was placed. Angioplasty was performed with an 8 mm diameter by 4 cm Conquest balloon. With the balloon inflated, the arterial anastomosis was refluxed and is non-stenotic. Post angioplasty films show anabaptism of a normal size lumen. The left axillary vein, subclavian vein, innominate vein, and superior vena cava are all widely patent. The sheath was removed and hemostasis achieved with manual compression. Contrast was 15 cc of Isovue-300. Radiation dose was 0.9 mGy. Impression: Recurrent high-grade left basilic venous stenosis, dilated to 8 mm with a high- pressure balloon. ALS SPECIALIST documented in this encounter Plan of Treatment Upcoming Encounters Date Type Department Care Team (Late st Contact Info) Description 12/11/2024 10:30 AM APPEALS SPECIALIST Appointment [facility] Vascular Services [address], [address] [place], [place] [phone] Jarett Reinoso MD [address] [place], [place] [phone] Christine Benitez MD [address] [place] [address] Keyshawn Krueger MD [address] [place] [address] [place] [address] [phone] documented as of this encounter Procedures Procedure Name Priority Date/Time Associated Diagnosis Comments CARDIAC RHYTHM STRIP ORDER 11/11/2023 1:46 AM APPEALS SPECIALIST IR ANGIO AV SHUNT IMAGING Routine 11/09/2023 10:24 AM APPEALS SPECIALIST ESRD (end stage renal disease) ([facility]) documented in this encounter Results * CARDIAC RHYTHM STRIP ORDER (11/11/2023 1:46 AM APPEALS SPECIALIST) Narrative 11/11/2023 1:46 AM APPEALS SPECIALIST Ordered by an unspecified provider. Scanned Document CARDIAC SERVICES ORD ERABLES * IR ANGIO AV SHUNT IMAGING (11/09/2023 10:24 AM APPEALS SPECIALIST) Anatomical Region Laterality Modality Lower Extremity, Upper Extremity, Chest X-Ray Angiography Narrative 11/09/2023 10:25 AM APPEALS SPECIALIST Jarett Reinoso MD ? 11/09/2023 10:30 AM Interventional Radiology Post Procedure-Progress Notes Surgeon: Jarett Reinoso MD Bloom Conveyor Operator: None Pre and Post Procedure diagnosis: Additional Diagnosis: ESRD (end stage renal disease) ([facility]) [N18.6]; Additional Information regarding Pre & Post [...] ??A fistulogram was performed through the 5 Lao transitional sheath. ??This shows recurrent short segment stenosis in the upper basilic vein , estimated at 80%. ??There is filling of collaterals in the left upper arm. A short 6 Lao sheath was placed. ??Angioplasty was performed with an 8 mm diameter by 4 cm Conquest balloon. ??With the balloon inflated, the arterial anastomosis was refluxed and is non-stenotic. ??Post angioplasty films show anabaptism of a normal size lumen. ??The left [...] (IR) $ New Bag/Syringe 11/09/2023 10:26 AM APPEALS SPECIALIST 30 mL 50 mL/hr iopamidol (Isovue 300) 61 % contrast Intravenous, INTRA-PROCEDURE MULTIPLE, Starting on Tue11/09/23 at 0954, Until Rebekah 11/10/23 at 0141, Intra/Post-procedure $ Given - Contrast 11/09/2023 10:26 AM APPEALS SPECIALIST 15 mL lidocaine (Xylocaine PF) 1% injection ADS Med 1 dose, Starting on Tue11/09/23 at 0800, Until Tue11/09/23 at 1016, Created by cabinet override lidocaine PF (Xylocaine MPF) 1 % injection Infiltration, INTRA-PROCEDURE MULTIPLE, Starting on Tue11/09/23 at 0954, Until Rebekah 11/10/23 at 0141, Intra-procedure (IR) $ Given 11/09/2023 10:16 AM APPEALS SPECIALIST 10 mg documented in this encounter Care Teams Tank House Operator Relationship Specialty Start Date End Date Yanira Meyers, EXERCISE INSTRUCTOR-CONTINUOUS IMPROVEMENT MANAGER [facility] [place] [address] PCP - General Nurse Practitioner Family 06/15/23 documented as of this encounter
--- OUTSIDE RECORDS SUMMARY | 2024-10-16 00:28 | XMS_ITS | Encounter Summary ---
Author Organization [facility] Address [address] [place] [address] Care Team Providers Care Developmental Education Instructor Name Role Phone Diana Mao MD Primary Care Provider [phone] Encounter Details Date Type Department Care Team (Late st Contact Info) Description 04/21/2023 Orders Only [facility] Medical Group - Surgery [address], [address] [place] [address] [place] [address] [facility] [address] [place] [address] Social History Tobacco Use Types [...] time. Surgeon: Place: [] Freeman Hogan M.D. [x][facility]:[address] [place] [address]. Patient Registration [] Momo Potter M.D. [] [facility] [x] Leland Thompson M.D. Ground Floor/[facility]. [] Hayley Willett M.D. [] [facility] [] Salvatore Guzman M.D First Floor Main Entrance [] Vilma Garcia D.O. [] Andrew Rothman M.D. [] Pawan Bangura D.O. [] Armando eFrro M.D. [] David Siu D.O. [] Ashish [...] st Contact Info) Description 12/11/2024 10:30 AM WARP CLAMPER Appointment [facility] Vascular Services [address], [address] [place] [address] Jarett Reinoso MD [address] [place], [place] [address] Christine Benitez MD [address] [place] [phone] Keyshawn Krueger MD [address] [place] [address] Armando Ferro, [address] [address] documented as of this encounter Visit Diagnoses Not on filedocumented in this encounter Care Teams Developmental Education Instructor Relationship Specialty Start Date End Date Diana Moa MD [address] [place] [address] PCP - General 08/05/17 06/14/23 documented as of this encounter
--- OUTSIDE RECORDS SUMMARY | 2024-10-16 00:28 | XMS_ITS | Encounter Summary ---
Author Organization [facility] Address [address] [facility] [place] [address] Care Team Providers Care Core Stripper Name Role Phone Ruizkyrie Yanira M GRADUATE STUDIES [employer]ARE NETWORK CONSULTANT Primary Care Provid er Reason for Visit * Auth/Cert (Routine) Specialty Diagnoses / Procedures Referred By Abena torrez Referred To Contact Procedures INSERTION GRAFT ARTERIO-VENOUS (AV) ARM Referral ID Status Reason Start Date Expiration Date Visits Re quested Visits Authorized [id number] 1 1 Encounter Details Date Type Department Care Team (Late st Contact Info) Description 06/15/2023 12:10 PM CDT Anesthesia Event [facility] - Perioperative Surgery [address] [place] [address] [place] [address] [place] [address] Josie Sylvester APRN-EDITOR AT LARGE [address] [place] [address] Anesthesia Record Procedure Summary Procedure Name Responsible [...] Kahlil F Emmanuel; Subclavian; Right; Angiodynamics; DuraFlow2; [id number]; [id number]; 15.5; 285; 08/03/23 03/23/23 0000 by Dinah [...] this encounter Progress Notes * Josie Sylvester, GRADUATE STUDIES DEAN-EDITOR AT LAR[employer] - 06/15/2023 1:45 PM CDT ANESTHESIA POSTOP [...] 08/23/2022 Priority: Not Prioritized ??? Aspiration pneumonia ([facility] 08/23/2022 Priority: Not Prioritized ??? Dysphagia 08/23/2022 Priority: Not Prioritized ??? Hyponatremia 08/23/2022 Priority: Not Prioritized ??? Elevated troponin 08/23/2022 Priority: Not Prioritized ??? Hypoalbuminemia 08/23/2022 Priority: Not Prioritized ??? High anion gap metabolic acidosis 08/23/2022 Priority: Not Prioritized ??? Normocytic anemia 08/23/2022 Priority: Not Prioritized ??? Acute decompensated heart failure ([facility]) 08/23/2022 Priority: Not Prioritized ??? Respiratory failure with hypoxia ([facility]) 08/23/2022 Priority: Not Prioritized ??? Hypertensive emergency 08/23/2022 Priority: Not Prioritized ??? Intracranial hemorrhage, nontraumatic ([facility]) 08/15/2022 Priority: Not Prioritized ??? Cervicalgia 04/06/2019 [...] Not Prioritized ??? Acute renal failure (ARF) ([facility]) 07/14/2015 Priority: Not Prioritized ??? Hypertensive chronic [...] stage 3, GFR 30-59 ml/min ([facility]) proteinuria; Auto Tech = Dr. Reyes ??? CVA (cerebral vascular accident) ([facility]) 08/14/2022 ??? Dementia without behavioral disturbance ([facility]) mild ??? ESRD on dialysis ([facility]) ??? Gout ??? HTN (hypertension), benign ??? 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 Morphea ??? Osteopenia Surgical History: Past Surgical History: Procedure Laterality Date ??? Appendectomy ??? Breast Reduction ??? Cholecystectomy, Laparoscopic ??? HX FRACTURE TX ??? OOPHORECTOMY 1972 ??? Parathyroidectomy 1999 QUALITY CONSULTANT Status: No LMP recorded. Patient is postmenopausal. [...] Anesthesia Transfer of Care - Josie Sylvester, DOUGIE-EDITOR AT LARGE - 06/15/2023 1:44 PM CDT ANESTHESIA TRANSFER [...] st Contact Info) Description 12/11/2024 10:30 AM BAND SAWMILL OPERATOR Appointment [facility] Vascular Services [address] [facility] [address] [place], [place] [address] Jarett Reinoso MD [address] [place], [place] [phone] Christine Benitez MD [address] [place] [phone] Keyshawn Krueger MD [address] [place], [place] [address] [place] [address] [address] [phone] documented as of this encounter Procedures Procedure [...] mL/hr documented in this encounter Care Teams Core Stripper Relationship Specialty Start Date End Date Yanira Meyers APRN-HEALTHCARE NETWORK CONSULTANT [address] [place] [phone] PCP - General Nurse Practitioner Family 06/15/23 documented as of this encounter
--- OUTSIDE RECORDS SUMMARY | 2024-10-16 00:28 | XMS_ITS | Encounter Summary ---
Author Organization [facility] Address [address] [facility] [place] [address] Care Team Providers Care Newsperson Name Role Phone Diana Mao MD Primary Care Provider [phone] Reason for Visit * Auth/Cert (Routine) Specialty Diagnoses / Procedures Referred By Abena torrez Referred To Contact Procedures INSERTION GRAFT ARTERIO-VENOUS (AV) ARM Referral ID Status Reason Start Date Expiration Date Visits Re quested Visits Authorized [id number] 1 1 Encounter Details Date Type Department Care Team (Late st Contact Info) Description 04/11/2023 9:05 AM CDT - 04/11/2023 11:05 AM CDT Surgery [facility] - Perioperative Surgery [address] [place], [place] [phone] [place] [address] [facility] [facility] [address] [place] [address] Not Performed INSERTION GRAFT ARTERIO-VENOUS [...] female. The patient is referred by her elevator service technician for a catheter that was not working well. She has never had evaluation for access in the past. PCP is Diana Mao MD. She is right handed. She has poor peripheral veins. ?? Past Medical & Surgical History Past Medical History: Diagnosis Date ??? CKD (chronic kidney disease) stage 3, GFR 30-59 ml/min ([facility]) ? proteinuria; Cigarette Maker = Dr. Reyes ??? HTN (hypertension), benign ? Hyperparathyroid bone disease ([facility]) ? s/p surgery ??? Morphea ? Osteopenia [...] st Contact Info) Description 12/11/2024 10:30 AM TYPING CHECKER Appointment [facility] Vascular Services [address] [facility] [address] [facility], [address] [place] [address] Jarett Reinoso MD [address] [place], [place] [address] Christine Benitez MD [address] [place] [phone] Keyshawn Krueger MD [address] [place], [place] [address] Armando Ferro, [address] [address] documented as of this encounter Procedures Procedure Name Priority Date/Time Associated Diagnosis Comments BASIC METABOLIC PANEL (CALCIUM TOTAL) STAT 04/11/2023 7:36 AM CDT Preop examination documented in this encounter Results * (ABNORMAL) BASIC METABOLIC PANEL (CALCIUM TOTAL) (04/11/2023 7:36 AM CDT) Glucose 99 70 - 105 mg/dL 04/11/2023 8:09 AM CDT [facility] Sodium 134(L) 136 - 145 mmol/L 04/11/2023 8:09 AM CDT [facility] Potassium 4.0 3.5 - 5.1 mmol/L 04/11/2023 8:09 AM CDT [facility] Chloride 98 98 - 107 mmol/L 04/11/2023 8:09 AM CDT [facility] CO2 27 23 - 31 mmol/L 04/11/2023 8:09 AM CDT [facility] Calcium 10.5(H) 8.4 - 10.4 mg/dL 04/11/2023 8:09 AM CDT [facility] Anion Gap 9 8 - 18 mmol/L 04/11/2023 8:09 AM CDT [facility] BUN 43(H) 9.8 - 20.1 mg/dL 04/11/2023 8:09 AM CDT [facility] Creatinine 4.77(H) 0.57 - 1.11 mg/dL 04/11/2023 8:09 AM CDT [facility] eGFR by CKD-EPI 9(L) >=90 mL/min/1.7 3 m2 04/11/2023 8:09 AM T [facility] Blood BLOOD SPECIMEN / Unknown Venipuncture / Unknown 04/11/2023 7:36 AM CDT 04/11/2023 7:51 AM CDT Zhora Peng DO LAB - CHEMISTRY PATRICIA CASIANO [facility] [address] [place] [address] documented in this encounter Visit [...] Pre-op documented in this encounter Care Teams Newsperson Relationship Specialty Start Date End Date Diana Mao MD [address] [place] [address] PCP - General 08/05/17 06/14/23 documented as of this encounter
--- OUTSIDE RECORDS SUMMARY | 2024-10-16 00:28 | XMS_ITS | Encounter Summary ---
Author Organization [facility] Address [address] [place] [address] Care Team Providers Care Puppy Sitter Name Role Phone Yanira Meyers POLE CUTTER-PRIMER BOXER Primary Care Provid er Reason for Referral * Evaluate & Treat (Routine) - Closed Specialty Diagnoses / Procedures Referred By Contmontserrat t Referred To Contact Cardiology Diagnoses Hypertensive emergency Heraclio Cabrera MD [address] [facility] 2L DIV OF [facility] [place] [address] abe Car [facility] [address] [facility] [address] [place] [address] Referral ID Status Reason Start Date Expiration Date V isits Requested Visits Authorized [id number] Closed Continuity of Care 10/05/2023 10/04/2024 1 1 OR MANAGER ASSET PROTECTION * Consultation (Routine) - Closed Specialty Diagnoses / Procedures Referred By Contac t Referred To Contact Neurological Surgery Diagnoses Subdural hematoma (HCC) Heraclio Cabrera MD [address] [facility] [address] [place] [address] Gill Thomas [address] [facility] [address] [place] [address] Referral ID Status Reason Start Date Expiration Date V isits Requested Visits Authorized [id number] Closed Specialty Services Required 10/04/2023 10/03/2024 1 1 OR MANAGER ASSET PROTECTION * Consultation (Routine) - Closed Specialty Diagnoses / Procedures Referred By Contac t Referred To Contact Neurological Surgery Diagnoses Subdural hematoma (HCC) Heraclio Cabrera MD [address] [facility] [address] DIV OF [facility] [place] [address] [facility] [address] [facility], [place] [address] Referral ID Status Reason Start Date Expiration Date V isits Requested Visits Authorized [id number] Closed Specialty Services Required 10/04/2023 10/03/2024 1 1 OR MANAGER ASSET PROTECTION * Radiology Services (Routine) - Closed Specialty Diagnoses / Procedures Referred By Contac t Referred To Contact CT Scan Diagnoses Neuroma of foot Procedures CT HEAD WO CONTRAST Axel Roman MD [address] [facility] 2[address] [place] [address] [facility] [address] [place] [address] Referral ID Status Reason Start Date Expiration Date Visits Re quested Visits Authorized [id number] Closed 10/17/2023 04/15/2024 1 1 OR MANAGER ASSET PROTECTION Reason for Visit * Reason Comments LOSS OF CONSCIOUSNESS PT BIBEMS for sync opal episode at Dialysis today. EMS reports epidural hematoma on CT from OSH. Pt lives at [facility] in [place] [address] at baseline. * Auth/Cert (Routine) Specialty Diagnoses / Procedures Referred By Abena t Referred To Contact Diagnoses trauma R frontal hematoma Referral ID Status Reason Start Date Expiration Date Visits Re quested Visits Authorized [id number] 1 1 Encounter Details Date Type Department Care Team (Late st Contact Info) Description 09/29/2023 3:23 PM SENIOR MANAGER ASSET PROTECTION - 10/05/2023 2:21 PM SENIOR MANAGER ASSET PROTECTION Hospital Encounter [facility] ACUTE [address] [place] [id number] Alexis Atkins MD [address] [facility] [place] [address] Jenaro Marshall MD [address] [facility] [place], [place] Axel Roman MD [address] [facility] [address] DIV OF [facility] [place] [address] Rogelio Benitez MD [address] [place], [place] [id number] Heraclio Cabrera MD [address] [facility] [address] DIV OF [facility] [place] [address] Acute Care Unit Discharge Disposition: Senior Care Facility Social History Tobacco Use Types Packs/Day [...] Comments Blood Pressure 111/49 10/05/2023 11:04 AM SENIOR MANAGER ASSET PROTECTION Pulse 60 10/05/2023 11:04 AM SENIOR MANAGER ASSET PROTECTION Temperature 36.9 ??C (98.4 ??F) 10/05/2023 11:[address] Respiratory Rate 22 10/05/2023 11:04 AM SENIOR MANAGER ASSET PROTECTION Oxygen Saturation 97% 10/05/2023 11:04 AM SENIOR MANAGER ASSET PROTECTION Inhaled Oxygen Concentration - - Weight 54.4 kg (120 lb) 10/05/2023 7:52 AM SENIOR MANAGER ASSET PROTECTION Height 175.3 cm (5' 9 ) 10/05/2023 7:52 AM SENIOR MANAGER ASSET PROTECTION Body Mass Index 17.72 10/05/2023 7:52 AM SENIOR MANAGER ASSET PROTECTION documented in this encounter Functional Status Functional [...] Bowling, DO - 10/05/2023 1:21 PM CST [facility] INTERNAL MEDICINE DISCHARGE SUMMARY PATIENT: Kirsty Rea [...] Decision was made to transfer pt to [facility] for further workup and neurosurgical evaluation. The [...] Report dictated by Ranjith Valdez MD, MD (radiology administrator). Debby Hester MD have personally reviewed and [...] A&Ox3, No focal deficits DISCHARGE PLANNING Disposition: snf and Rehab Patient Instructions: Medication List START [...] medications, please ask the pharmacy when you picking table worker your prescription. You may also call your primary provider if you still have questions.? ? 2. FOLLOW-UP:? A) Below are your scheduled appointments? Future Appointments Thursday November 09, 2023 10:30 AM (Arrive by 9:30 AM) Appointment with [facility] at [facility] ([phone]) [address] [facility], [address] [place] [address] As directed Imaging: CT HEAD WO CONTRAST ? -If you are not going home but to Rehab or Fdc, ask the providers there about going to [...] in your care!? ? Internal Medicine Team? [facility] [address]? [place] [address]? Signed: Billy Bowling DO Internal Medicine Resident [facility] 10/05/2023 1:21 PM ' OR MANAGER ASSET PROTECTION Associated attestation - Heraclio Cabrera MD - 10/05/2023 9:34 PM SENIOR MANAGER ASSET PROTECTION I have verified the documentation of the [...] Billy Bowling, DO - 10/05/2023 9:21 AM SENIOR MANAGER ASSET PROTECTION DISCHARGE INSTRUCTIONS? A MESSAGE FROM YOUR DOCTORS:?? [...] medications, please ask the pharmacy when you picking table worker your prescription. You may also call your primary provider if you still have questions.? ? 2. FOLLOW-UP:? A) Below are your scheduled appointments? Future Appointments Thursday November 09, 2023 10:30 AM (Arrive by 9:30 AM) Appointment with [facility] at [facility] ([phone]) [address] [facility], [address] [place] [address] As directed Imaging: CT HEAD WO CONTRAST ? -If you are not going home but to Rehab or Fdc, ask the providers there about going to [...] in your care!? ? Internal Medicine Team? [place] [address] [facility]? [place] [address]? OR MANAGER ASSET PROTECTION documented in this encounter Medications at Time [...] as of this encounter Progress Notes * Frna Torres MSW - 10/05/2023 12:27 PM CST Facility Transfer Note Level of Care: SNF Facility Name: (include name of person confirming admission): Actual discharge provider: [facility] Made Aware of Special Needs (if applicable): Yes RN Call Report to:[phone] Fax D/C Orders to:[phone] Transportation (company and number): [facility] [id number] Certificate of Medical Necessity rationale: yes Date/time of transfer: 10/05 @ 3:00PM Accepting MD and contact #: Dr. Asif Completed and Signed [id number] (if applicable): Family/Other Notified of Transfer (name/phone): Authorization Skilled Care: Authorization for Transportation: Verified Qualifying Stay(Skilled Only): YES Comments: Name/Phone number: NIMO Tang OR MANAGER ASSET PROTECTION * Tish Freeman - 10/05/2023 11:58 AM CST Discharge health specialist received a request from to schedule a follow up appointment with Neurology and CTH . Upon reviewing the chart, it should be noted that the patient has an appointment already scheduled with Dr. Anne on 11/01/2023 at 4:00 pm. Patient also scheduled for CTH on 11/01/2023 at 3:00 pm No further discharge planning needs at this time. Tish Freeman 10/13/2023 OR MANAGER ASSET PROTECTION * Earnestine Brand MD - 10/05/2023 11:39 AM CST [facility] Department of Nephrology History & Physical Date [...] Urine: No Access: RUE AVF Dialysis Center: [facility] Dialysis Days: TTS Dialysis Duration: 3 Hours 30 Minutes Dry Weight: NR Last Dialysis: 09/27/2023 Sociology Faculty Member: Dariel LARRY/BFR: Attempted to call Patient's dialysis [...] kidney disease) stage 3, GFR 30-59 ml/min ([facility] proteinuria; Sociology Faculty Member = Dr. Reyes ??? CVA (cerebral vascular accident) ([facility]/HCC) 08/14/2022 ??? Dementia without behavioral disturbance (CMS/HCC) mild ??? ESRD on dialysis ([facility]) [facility] 07/06/23 ??? Gout ??? [...] Name 08/22/22 1801 08/22/22 0816 08/21/22 1930 [id number] 16* 16* 17* IMAGING: CT CHEST ABDOMEN [...] physician. CHRIS Henderson MD 09/30/2023 11:39 AM OR MANAGER ASSET PROTECTION Associated attestation - Chris Fernandez MD - 10/05/2023 6:43 PM SENIOR MANAGER ASSET PROTECTION I have seen and examined the patient with house-staff on rounds at 12:20 PM. I agree with the findings and plan of care as documented in the resident note. * Lyssa Guerra - 10/05/2023 9:51 AM CST Images from the original note were not included. Updated progress notes sent to patient's normal Outpatient Hemodialysis Dialysis center. 10/05/2023 1:56 PM Spoke with staff at [facility] to let them know patient would be discharging today. Lyssa Guerra Kidney Navigator Ascom: [phone] Office: [phone] OR MANAGER ASSET PROTECTION * Saji James RN - 10/04/2023 7:57 [...] found in the flowsheet documentation) Outcome: Progressing OR MANAGER ASSET PROTECTION * Bety Vuong OT - 10/04/2023 3:41 PM CST [facility] Occupational Therapy Progress Note Patient: Kirsty Rea [facility] Record Number: [id number] Date of : 1940 Age: [age] year [...] Pt is agreeable to participate. Pt is HUSLIA. Pain Assessment: Pain Location #1 Pain Scale/Observation: [...] Patient will transfer to standard toilet??independently ?? Group Home Goal(s): Patient to discharge to appropriate next [...] with therapy cues visible on white board. OR MANAGER ASSET PROTECTION * Billy Bowling DO - 10/04/2023 3:09 PM CST [facility] INTER[facility] MEDICINE PROGRESS NOTE Patient: Kirsty [...] of CVA off antiplatelet/anticoag She presented to [facility] ED from OSH with altered mental status, [...] Decision was made to transfer pt to [facility] for further workup and neurosurgical evaluation. The [...] outpatient dialysis schedule will be moved to [facility], Nephrology made aware - Anemia likely of [...] SNF placement, can likely go back to [facility] The above assessment and plan will be discussed with the attending. This note is not final until attested by attending physician. Billy Bowling DO Internal Medicine Resident [facility] 10/04/2023 3:09 PM OR MANAGER ASSET PROTECTION Associated attestation - Heraclio Cabrera MD - 10/04/2023 8:18 PM SENIOR MANAGER ASSET PROTECTION I have verified the documentation of the [...] Manning, PT - 10/04/2023 2:55 PM CST [facility] Physical Therapy Progress Note Patient: Kirsty Rea Med Record Number: [id number] Date of : 1940 Age: [age] year [...] and balance activities Modified Elizabeth: Current Modified Desoto Score: 4 AM-PAC 6 Clicks Mobility Raw [...] feet with minimal assist and appropriate AD Group Home Goal(s): Patient to discharge to appropriate next [...] alarm on, with call light within reach. OR MANAGER ASSET PROTECTION * Leland Terrazas, ERYN/LD - 10/04/2023 2:17 [...] off AC, and dementia who presents to [facility] from OSH with AMS and an unwitnessed [...] Pain affecting intake: No Estimated Needs: KCAL: [id number] (35-40kcal/kg ABW) Protein (g): 65 (1.2g/kg ABW) [...] Goal Progress: New goal established Ascom #: [phone] OR MANAGER ASSET PROTECTION * Leland García Sb - 10/04/2023 1:57 [...] patient's hemodialysis schedule, she informed us that [facility]'s dialysis schedule is actually MWF now instead of TTS. Finally, patient's daughter was updated about discharge plans to [facility]. She requested that we arrange transportation and providean updated medication list for her outpatient physician to see. She also requests that we call her or her sister (Stacy) and notify [facility] on the exact day the patient will be discharged. I reassured her that we will have her discharge orders and transportation arranged. Patient's daughter was agreeable and understood the current updates as discussed above and had no further questions or concerns at this time. Agreed to call her back for further updates. Leland García MS3 [facility] 10/04/2023 2:10 PM OR MANAGER ASSET PROTECTION * Freeman Medrano RN - 10/04/2023 1:43 PM CST 10/04/23 1245 Post Hemodialysis Patient Response to Treatment Tolerated tx well Post Dialysis Patient Status Treatment Completed Ultrafiltration Amount (ml) 1004 Dialyzer Clearance Lightly streaked Amount of blood processed (Liters) 70.3 Post Hemodialysis Comment UF goal met, VSS TX Charge entered in Charge Capture Yes OR MANAGER ASSET PROTECTION * Freeman Medrano RN - 10/04/2023 1:40 [...] 1340 by Freeman Medrano RN Outcome: Progressing OR MANAGER ASSET PROTECTION * Leland García - 10/04/2023 11:45 AM CST [facility] INTER[facility] MEDICINE PROGRESS NOTE Patient: Kirsty [...] off AC, and dementia who presents to [facility] from OSH with AMS and an unwitnessed fall during her HD session. Unsure if accompanied by LOC. Pertinent history includes increased falls and AMS since her CVA in 07/2022. At the OSH, CT head revealed right frontal convexity SDH. She was then transferred to [facility] (elevated BP most likely 2/2 to volume [...] as described above. > Interpreting Provider: Rosa Daivs MD on 09/29/2023 6:[address] LUMBAR [...] and recent fall. Improved mentation/A&Ox3 today. Pt's residential was contacted to establish her baseline mentation. Per pt's residential nurse: - Alert to person only, sometimes [...] SCDs Access: 2PIV and HD line Dispo: [facility] home The above assessment and plan will be discussed with the attending. This note is not final until attested by attending physician. Leland García MS3 [facility] 10/04/2023 1:21 PM OR MANAGER ASSET PROTECTION * Lyssa Guerra - 10/04/2023 8:55 AM CST Images from the original note were not included. Updated progress notes sent to patient's normal Outpatient Hemodialysis Dialysis center. Lyssa Guerra Kidney Navigator Ascom: [phone] Office: [phone] OR MANAGER ASSET PROTECTION * Elsy Cabrera RN - 10/04/2023 8:16 AM CST Problem: Pain/Discomfort Goal: Patient exhibits reduced pain/discomfort as evidenced by pain scores Outcome: Progressing Goal: Patient uses pharmacological and non-pharmacological pain management strategies. Outcome: Progressing Goal: Patient verbalizes acceptable level of pain relief and ability to engage in desired activity. Outcome: Progressing OR MANAGER ASSET PROTECTION * Freeman Medrano RN - 10/04/2023 6:35 [...] change:unk Primary RN educated on Incapacitated Nurse:yes OR MANAGER ASSET PROTECTION * Saji James RN - 10/04/2023 3:03 AM CST Problem: Pain/Discomfort Goal: Patient exhibits reduced pain/discomfort as evidenced by pain scores Outcome: Progressing Goal: Patient uses pharmacological and non-pharmacological pain management strategies. Outcome: Progressing Goal: Patient verbalizes acceptable level of pain relief and ability to engage in desired activity. Outcome: Progressing OR MANAGER ASSET PROTECTION * Billy Bowling, - 10/03/2023 7:17 PM CST [facility] INTER[facility] MEDICINE PROGRESS NOTE Patient: Kirsty [...] of CVA off antiplatelet/anticoag She presented to [facility] ED from OSH with altered mental status, [...] Decision was made to transfer pt to [facility] for further workup and neurosurgical evaluation. The [...] SNF placement, can likely go back to [facility] The above assessment and plan will be discussed with the attending. This note is not final until attested by attending physician. Billy Bowling DO Internal Medicine Resident [facility] 10/03/2023 7:18 PM OR MANAGER ASSET PROTECTION * Rubio Manning, PT - 10/03/2023 4:04 PM CST [facility] Department of Physical Medicine & Rehabilitation Progress Note Patient: Kirsty Rea Med Record Number: [id number] Date of : 1940 Age: [age] year old 10/03/23 1536 Missed Visit Missed Visit Other (Comment) Pt asleep in bedside chair upon this caption writer's arrival. PT will continue to follow and attempt as able. OR MANAGER ASSET PROTECTION * Earnestine Brand MD - 10/03/2023 12:46 PM CST [facility] Department of Nephrology History & Physical Date [...] Urine: No Access: RUE AVF Dialysis Center: [facility] Dialysis Days: TTS Dialysis Duration: 3 Hours 30 Minutes Dry Weight: NR Last Dialysis: 09/27/2023 Sociology Faculty Member: Dariel LARRY/BFR: Attempted to call Patient's dialysis [...] kidney disease) stage 3, GFR 30-59 ml/min [place] proteinuria; Sociology Faculty Member = Dr. Reyes ??? CVA (cerebral vascular accident) ([facility]) 08/14/2022 ??? Dementia without behavioral disturbance ([facility]) mild ??? ESRD on dialysis ([facility]) [facility] 07/06/23 ??? Gout ??? HTN (hypertension), benign ??? 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 Morphea [...] Name 08/22/22 1801 08/22/22 0816 08/21/22 1930 [id number] 16* 16* 17* IMAGING: CT CHEST ABDOMEN [...] physician. CHRIS Henderson MD 09/30/2023 12:47 PM OR MANAGER ASSET PROTECTION Associated attestation - Chris Fernandez MD - 10/03/2023 8:38 PM SENIOR MANAGER ASSET PROTECTION I have seen and examined the patient [...] Pennington OT - 10/03/2023 11:25 AM CST [facility] Occupational Therapy Progress Note Patient: Kirsty Rea Med Record Number: [id number] Date of : 1940 Age: [age] year old PPE worn by staff: gloves;mask - procedural Tech: N/A Recommendations: OT Discharge Recommendations: Patient would benefit from multidisciplinary therapy Nurse and Physical Therapy contacted regarding patient status and/or discharge plan. Activity Level: up ad mushtaq PRECAUTIONS: Weight Bearing Status: (No restrictions) SUBJECTIVE: Subjective: Pt is agreeable to participate. Pt is HUSLIA. Pain Assessment: Pain Location #1 Pain Scale/Observation: [...] activity tolerance: fair. Modified Elizabeth: Current Modified Desoto Score: 4 AM-PAC 6 Clicks Daily Activity [...] Patient will transfer to standard toilet independently Group Home Goal(s): Patient to discharge to appropriate next [...] RN in room, with RN, Elsy aware. OR MANAGER ASSET PROTECTION * Virginia Robledo RN - 10/03/2023 10:40 AM CST Care Coordination Initial Assessment Anticipated Discharge Date: 10/05/23 Transportation at Discharge: Ambulance Anticipated level of care at discharge: [facility]dc - Skilled Facility Anticipated level of care provider: [facility] Prior to admission level of care: [facility]dc - Skilled Facility Prior to admit provider: None Patient Goals: To return to facility Plans: No discharge needs identified at this time. Consult Case Management if discharge planning needs arise. Comments: Spoke with pt and she was able to answer a few questions, contacted daughter by phone to answer others. Pt resides at [facility], is essentially bed/WC bound, unable to ambulate. Daughter had questions for Medical Team, requested MD to give Agnes a call. [facility] Lives with: Other (Comment) Physical Limitations: Wheelchair Bound Requires Assistance With: Mobility;Dressing;Toileting;Hygiene;Transfers;Housekeeping;Meal Preparatio n;Medication Administration;Shopping Preferred Pharmacy: [facility] [address] [facility] [address] [facility] [phone] [address] [facility] [phone] READMISSION RISK SCORE is 18 at 1:11 PM 10/03/2023. Met with patient and daughter Family Support (name and phone): Extended Emergency Contact Information Primary Emergency Contact: Agnes Monroy Mobile Relation: Daughter Secondary Emergency Contact: Stacy Sheppard Mobile Relation: Daughter Patient or parts sales representative requests care coordination reach out to family or caregiver listed above regarding discharge planning and at time of discharge? Yes Patient/Family provided with list of resources? Unknown Preferred Provider / High Quality Network List given?: Unknown Reason for provider choice: Pt. choice - previous provider Equipment at Home: Wheelchair-Standard Zinc Skimmer Referral: Yes Will continue to follow. For any questions or needs please contact: Dispatcher Relay Name/Phone number: Virginia Robledo RN OR MANAGER ASSET PROTECTION * Elsy Cabrera RN - 10/03/2023 9:36 AM CST Problem: Fluid and Electrolyte Imbalance Goal: Fluid and electrolyte balance are achieved/maintained Outcome: Progressing Problem: Infection Goal: Signs and symptoms of infections are decreased or avoided Outcome: Progressing Problem: Pain/Discomfort Goal: Patient exhibits reduced pain/discomfort as evidenced by pain scores Outcome: Progressing OR MANAGER ASSET PROTECTION * Zuleima Evangelista RN - 10/03/2023 8:25 AM CST Rapid [place] [address] Patient: Kirsty Rea : 1940 Location: [address] [place] [address] Rapid Response Team completed morning rounds on [...] Zuleima Evangelista RN Rapid Response Nurse [phone] OR MANAGER ASSET PROTECTION * Leland García - 10/03/2023 7:11 AM CST [facility] INTER[facility] MEDICINE PROGRESS NOTE Patient: Kirsty Rea Sex: female Age: [age] year old Date of : 1940 Date of Admission: 09/29/2023 Date: 10/03/2023 LOS: 2 SUBJECTIVE Interval History: PRODUCT TRANSFER PUMPER paged for worsening SOB overnight around 1800. [...] off AC, and dementia who presents to [facility] from OSH with AMS and an unwitnessed fall during her HD session. Unsure if accompanied by LOC. Pertinent history includes increased falls and AMS since her CVA in 07/2022. At the OSH, CT head revealed right frontal convexity SDH. She was then transferred to [facility] (elevated BP most likely 2/2 to volume [...] HD line Dispo: OT/PT recs d/c to [facility] The above assessment and plan will be discussed with the attending. This note is not final until attested by attending physician. Leland García MS3 [facility] 10/03/2023 4:07 PM OR MANAGER ASSET PROTECTION Associated attestation - Rogelio Benitez MD - 10/03/2023 6:30 PM SENIOR MANAGER ASSET PROTECTION I have seen and examined the patient with the resident and I agree with the findings and plan of care as documented by the resident. In addition: pending TTE for syncope w/u Date of Service: 10/03/2023 Rogelio Benitez MD Hospitalist, Netsuite Developerguillotine operator * Steffany Baldwin RN - 10/03/2023 6:15 [...] found in the flowsheet documentation) Outcome: Progressing OR MANAGER ASSET PROTECTION * Jeannine Calle RN - 10/03/2023 6:07 AM CST Rapid [place] [address] Patient: Kirsty Rea : 1940 Location: [address] [place] [address] Rapid Response Team completed nightly rounding, spoke with staff and furnace charger, No acute concerns brought forward. Patient found with even and unlabored respirations, VSS as charted. No further Rapid Response Nursing needs at this time. Vital Signs: Patient Vitals for the past 6 hrs: Temp Pulse BP BP Method 10/03/23 0512 97.8 ??F (36.6 ??C) 92 160/68 Automatic 10/03/23 0019 -- 89 159/99 Automatic Jeannine Calle RN Rapid Response Nurse [phone] OR MANAGER ASSET PROTECTION * Reji Hu MD - 10/02/2023 6:54 [...] Reji Hu MD Internal Medicine, PGY2 Pager OR MANAGER ASSET PROTECTION * Kevin Otero RN - 10/02/2023 5:59 [...] with Rapid RN if situation gets worst. OR MANAGER ASSET PROTECTION * Kevin Otero RN - 10/02/2023 5:44 [...] found in the flowsheet documentation) Outcome: Progressing OR MANAGER ASSET PROTECTION * Rachell Gilbert DO - 10/02/2023 3:25 PM CST [facility] Department of Nephrology Progress Note Date of Admission: 09/29/2023 Length of Stay: 1 Date of Service: 10/02/23 Patient Name: Kirsty Rae (82 year old female) Room Number: 836/836a PCP: NINA Victoria ([phone]) Chief Complaint Patient presents with ??? LOSS OF CONSCIOUSNESS PT BIBEMS for syncopal episode at Dialysis today. EMS reports epidural hematoma on CT from OSH. Pt lives at [facility] in [place] [address] at baseline. HISTORY: History obtained from patient [...] Name 08/22/22 1801 08/22/22 0816 08/21/22 1930 [id number] 16* 16* 17* ASSESSMENT: Kirsty Rea is [...] DO Nephrology Fellow, PGY-4 10/02/2023 3:25 PM OR MANAGER ASSET PROTECTION Associated attestation - Howard Weston MD - 10/02/2023 6:45 PM SENIOR MANAGER ASSET PROTECTION Patient was seen and examined with house-staff. I concur with findings, assessment, and plan. The note has been edited to reflect my assessment. * Yolanda Johnson MD - 10/02/2023 2:30 PM CST [facility] INTERNAL MEDICINE PROGRESS NOTE Patient: Kirsty [...] about 2 months ago, was placed at jail facility at [facility].Daughter Stacy would like an update on Tuesday regarding TTE. 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 The [...] SNF placement, can likely go back to [facility] The above assessment and plan will be discussed with the attending. This note is not final until attested by attending physician. Yolanda Johnson MD Internal Medicine Resident [facility] 10/02/2023 2:30 PM OR MANAGER ASSET PROTECTION Associated attestation - Rogelio Benitez MD - 10/02/2023 6:27 PM SENIOR MANAGER ASSET PROTECTION I have seen and examined the patient with the resident and I agree with the findings and plan of care as documented by the resident. Date of Service: 10/02/2023 Rogelio Benitez MD Hospitalist, Netsuite Developerguillotine operator * Steffany Baldwin RN - 10/02/2023 6:38 [...] found in the flowsheet documentation) Outcome: Progressing OR MANAGER ASSET PROTECTION * Kevin Otero RN - 10/01/2023 5:51 [...] found in the flowsheet documentation) Outcome: Progressing OR MANAGER ASSET PROTECTION * Marija Myles RN - 10/01/2023 10:31 AM CST Pt hd tx int. Pt tolerates hd tx well UF-1L Problem: Infection Goal: Signs and symptoms of infections are decreased or avoided Outcome: Progressing OR MANAGER ASSET PROTECTION * Kevin Otero RN - 10/01/2023 9:27 [...] - Patient is back to her room. OR MANAGER ASSET PROTECTION * Yolanda Johnson MD - 10/01/2023 7:46 AM CST [facility] INTERNAL MEDICINE PROGRESS NOTE Patient: Kirsty [...] TTE and orthostatics. Discussed with family Stacy ( [phone]), unsure if patient had LOC. Patient has been having many falls recently and is more demented. Since last hip injury about 2 months ago, was placed at jail facility at [facility]. 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 The [...] physician. Yolanda Johnson MD Internal Medicine Resident [facility] 10/01/2023 7:47 AM OR MANAGER ASSET PROTECTION Associated attestation - Rogelio Benitez MD - 10/01/2023 9:06 PM SENIOR MANAGER ASSET PROTECTION I have seen and examined the patient with the resident and I agree with the findings and plan of care as documented by the resident. Date of Service: 10/01/2023 Rogelio Benitez MD Hospitalist, Netsuite Developerguillotine operator * Marija Myles RN - 10/01/2023 7:43 [...] educated on Incapacitated Nurse: KEVIN OTERO RN [id number] OR MANAGER ASSET PROTECTION * Steffany Baldwin RN - 10/01/2023 4:01 [...] found in the flowsheet documentation) Outcome: Progressing OR MANAGER ASSET PROTECTION * Cherry Branch RN - 09/30/2023 7:55 PM CST 1900: pt arrived to 8S in 836 bed A. Steffany Woods night nurse will take over care. Daughter Stacy updated of pt's arrival to the floor. Career Coach A notified as well. OR MANAGER ASSET PROTECTION * Lexi Holden RN - 09/30/2023 6:17 [...] infections are decreased or avoided Outcome: Progressing OR MANAGER ASSET PROTECTION * Lyssa Guerra - 09/30/2023 3:58 PM CST Images from the original note were not included. I am aware of this patient's admission, I will be following this dialysis patient for any needs while an inpatient, and keeping their clinic informed of their progress while admitted. Records were forwarded to the clinic for their review. Spoke with Leona at [facility] and she was able to confirm patient's OP HD schedule. Meet with patient in dialysis suite and patient was able to tell me her days but could remember her clinic name and time. Patient voiced no concerns with clinic and asked if I could keep them updated because that is her home. Documented acknowledgement of choice: Yes, verbal consent given Outpatient Clinic [facility] Days: TTS Time: 11:00AM Doctor: Dr Perez Lyssa Guerra Kidney Navigator Ascom: [phone] OR MANAGER ASSET PROTECTION * Carine Garcia, PT - 09/30/2023 3:13 PM CST [facility] Physical Therapy Initial Evaluation Note Patient: Kirsty Rea [facility] Record Number: [id number] Date of : 1940 Age: [age] year [...] Neuroma of foot Acute renal failure (ARF) ([facility]) Benign hypertensive heart disease without [...] skin and subcutaneous tissue Intracranial hemorrhage, nontraumatic ([facility]) Pleural effusion Aspiration pneumonia ([facility]) Dysphagia Hyponatremia Elevated troponin Hypoalbuminemia High anion gap metabolic acidosis Normocytic anemia Acute decompensated heart failure ([facility]) Respiratory failure with hypoxia ([facility]) Hypertensive emergency ESRD (end stage renal disease) ([facility]) Syncope and collapse Subdural hematoma ([facility]) Fall, initial encounter Past Medical History: Diagnosis Date ??? Anxiety ??? CKD (chronic kidney disease) stage 3, GFR 30-59 ml/min ([facility]) proteinuria; Sociology Faculty Member = Dr. Reyes ??? CVA (cerebral vascular accident) ([facility]) 08/14/2022 ??? Dementia without behavioral disturbance ([facility]) mild ??? ESRD on dialysis ([facility]) [facility], Th 07/06/23 ??? Gout ??? HTN (hypertension), benign ??? 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 Morphea ??? Osteopenia SUBJECTIVE: Subjective: I feel great! PATIENT GOALS: Home Situation: Type of Residence: Assisted Living Facility (pt has some word finding difficulty; described INTERMEDIATE as two rooms ) Home Structure: One [...] training, transfer training and gait training Modified [place]: Current Modified Elizabeth Score: 4 AM-PAC 6 [...] feet with minimal assist and appropriate AD Fishing Tool Supervisor Goal(s): Patient to discharge to appropriate next [...] on stretcher, with call light within reach. OR MANAGER ASSET PROTECTION * Katherine Chand, OT - 09/30/2023 1:15 PM CST [facility] Occupational Therapy Initial Evaluation Note Patient: Kirsty Rea [facility] Record Number: [id number] Date of : 1940 Age: [age] year [...] Neuroma of foot Acute renal failure (ARF) ([facility]) Benign hypertensive heart disease without [...] skin and subcutaneous tissue Intracranial hemorrhage, nontraumatic ([facility]) Pleural effusion Aspiration pneumonia ([facility]) Dysphagia Hyponatremia Elevated troponin Hypoalbuminemia High anion gap metabolic acidosis Normocytic anemia Acute decompensated heart failure ([facility]) Respiratory failure with hypoxia ([facility]) Hypertensive emergency ESRD (end stage renal disease) ([facility]) Syncope and collapse Subdural hematoma ([facility]) Fall, initial encounter Past Medical History: Diagnosis Date ??? Anxiety ??? CKD (chronic kidney disease) stage 3, GFR 30-59 ml/min ([facility]) proteinuria; Sociology Faculty Member = Dr. Reyes ??? CVA (cerebral vascular accident) ([facility]) 08/14/2022 ??? Dementia without behavioral disturbance ([facility]) mild ??? ESRD on dialysis ([facility] ??? Gout ??? HTN (hypertension), benign ??? 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 Morphea ??? Osteopenia SUBJECTIVE: [...] intact Memory: Decreased recall of recent events;Decreased group home memory Following Commands: Follows all commands and [...] Patient will transfer to standard toilet independently Fishing Tool Supervisor Goal(s): Patient to be independent with functional [...] on stretcher, with call light within reach. OR MANAGER ASSET PROTECTION * Lexi Holden RN - 09/30/2023 12:44 [...] dialysis: none Report from:Ramona BOSS Phone number: [phone] OR MANAGER ASSET PROTECTION * Joaquín Hale MD - 09/30/2023 7:44 AM CST [facility] Trauma Surgery Progress Note Admit: 09/29/2023 3:23 [...] results for input(s): PHART , PO2ART , ERK7MWC , BEART in the last 58148 hours. Imaging: CT CHEST ABDOMEN PELVIS W [...] Trauma surgery signing off, please call (ascom [phone]) or page with any questions or concerns Joaquín Hale MD General Surgery Resident [facility] Trauma Pager: [phone] September 30, 2023 7:45 AM OR MANAGER ASSET PROTECTION documented in this encounter H&P Notes * Horacio Davis MD - 09/30/2023 2:45 AM CST [facility] INTERNAL MEDICINE HISTORY & PHYSICAL NOTE [...] Decision was made to transfer pt to [facility] for further workup and Neurosurgical evaluation. Pt's [...] kidney disease) stage 3, GFR 30-59 ml/min ([facility]) proteinuria; Sociology Faculty Member = Dr. Reyes ??? CVA (cerebral vascular accident) (CMS/HCC) 08/14/2022 ??? Dementia without behavioral disturbance (CMS/HCC) mild ??? ESRD on dialysis (CMS/HCC) [facility] [place] , 07/06/23 ??? Gout ??? HTN (hypertension), [...] input(s): LDLCALC , HDL in the last 64192 hours. UA: N/A Microbiology: N/A Imaging & [...] physician. Horacio Davis MD Internal Medicine Resident [facility] 09/30/2023 2:46 AM OR MANAGER ASSET PROTECTION Associated attestation - Axel Roman MD - 09/30/2023 11:43 AM SENIOR MANAGER ASSET PROTECTION I have personally interviewed and independently examined [...] for details. Date of Service: 09/30/2023 Axel oRman MD * Tello Enriquez MD - 09/29/2023 [...] kidney disease) stage 3, GFR 30-59 ml/min ([facility]) proteinuria; Sociology Faculty Member = Dr. Reyes ??? CVA (cerebral vascular accident) ([facility]) 08/14/2022 ??? Dementia without behavioral disturbance ([facility]) mild ??? ESRD on dialysis ([facility]) [facility]ian [facility], Th 07/06/23 ??? Gout ??? HTN (hypertension), benign ??? 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 Morphea ??? Osteopenia ??? [...] DATE/TIME OF EXAM: 09/29/2023 5:04 PM, LOCATION [facility] INDICATION: W19.XXXA: Fall, initial encounter ADDITIONAL CLINICAL [...] DATE/TIME OF EXAM: 09/29/2023 5:04 PM, LOCATION [facility] INDICATION: W19.XXXA: Fall, initial encounter ADDITIONAL [...] pelvis. > Dictated by Heath Wu MD, (radiology administrator). I, Juwan Aceves have personally reviewed and [...] Neuroma of foot Acute renal failure (ARF) ([facility]) Benign hypertensive heart disease without [...] offered from this service. Tello Enriquez MD [facility] September 29, 2023 9:50 PM OR MANAGER ASSET PROTECTION Associated attestation - Jacqueline Connor DO - 09/30/2023 5:49 AM SENIOR MANAGER ASSET PROTECTION Trauma consult, not paged out. I was [...] 1,000 ml. Dialysate 2K and 2.5 Ca. OR MANAGER ASSET PROTECTION * Howard Weston MD - 10/01/2023 12:48 [...] care plan of antihypertensive at this time OR MANAGER ASSET PROTECTION * Howard Weston MD - 09/30/2023 3:37 PM CST Procedure: Hemodialysis Indication: ESRD. Accessed via left AVF This patient was seen and examined by me during dialysis today. Tolerated tx well 3k/2.5ca bath used 1L uf BP trending down 155/58 mmHg as responding to UF Will return to her usual schedule tomorrow OR MANAGER ASSET PROTECTION documented in this encounter Consult Notes * Fran Torres MSW - 10/03/2023 3:37 PM CSTAssociated Order(s): IP CONSULT TO ELECTRICIAN YARD Care Coordination Progress Note Anticipated level of care at discharge: [facility] - Skilled Facility: Anticipated level of care provider: [facility]: Anticipated Discharge Date: 10/05/23: Discharge Plan: SW to prepare for this pt to return to [facility] when med ready. Orientation Level: Disoriented to Situation;Oriented to Place;Oriented to Person;Oriented to Time (Pt requires cues for ): Family Support (Name and Phone): Extended Emergency Contact Information Primary Emergency Contact: Agnes Monroy Mobile Relation: Daughter Secondary Emergency Contact: SheppardStacy Mobile Relation: Daughter Transportation at Discharge: Ambulance: READMISSION RISK SCORE is 18 at 3:37 PM 10/03/2023.: Name: NIMO Tang [phone] OR MANAGER ASSET PROTECTION * Earnestine Brand MD - 09/30/2023 10:43 AM CSTAssociated Order(s): IP CONSULT TO NEUROLOGY [facility] Department of Nephrology History & Physical Date [...] Urine: No Access: RUE AVF Dialysis Center: [facility] Dialysis Days: TTS Dialysis Duration: 3 Hours 30 Minutes Dry Weight: NR Last Dialysis: 09/27/2023 Sociology Faculty Member: Dariel LARRY/BFR: Attempted to call Patient's dialysis [...] kidney disease) stage 3, GFR 30-59 ml/min ([facility]/HCC) proteinuria; Sociology Faculty Member = Dr. Reyes ??? CVA (cerebral vascular accident) (CMS/HCC) 08/14/2022 ??? Dementia without behavioral disturbance (CMS/HCC) mild ??? ESRD on dialysis ([facility]) [facility] , Th 07/06/23 ??? Gout ??? [...] Name 08/22/22 1801 08/22/22 0816 08/21/22 1930 [id number] 16* 16* 17* IMAGING: CT CHEST ABDOMEN [...] Weston. Earnestine Chatterjee MD 09/30/2023 10:48 AM OR MANAGER ASSET PROTECTION Associated attestation - Howard Weston MD - 09/30/2023 1:32 PM SENIOR MANAGER ASSET PROTECTION Patient was seen and examined with house-staff. [...] HTN, ESRD on HD, CVA presents to [facility] ED from OSH with altered mental status. Per pt's daughter, pt was at dialysis when the treatment team noticed thept was altered and sent her to OSH where CT Head revealed right frontal convexity SDH. Decision wasmade t transfer pt to [facility] for further workup and Neurosurgical evaluation. Pt's medications include no anticoagulants/antiplatelets Pt's daughter states that pt has been experiencing increased frequency in falls and exhibiting delusional thinking since her CVA in July of this year. [facility] NEUROSURGERY HIGH RISK VARIABLES Chronic Kidney Disease - ESRD Were these Present On Admission? Yes Past Medical History: Diagnosis Date ??? Anxiety ??? CKD (chronic kidney disease) stage 3, GFR 30-59 ml/min ([facility]) proteinuria; Sociology Faculty Member = Dr. Reyes ??? CVA (cerebral vascular accident) ([facility]/HCC) 08/14/2022 ??? Dementia without behavioral disturbance ([facility]/HCC) mild ??? ESRD on dialysis ([facility]) [facility] 07/06/23 ??? Gout ??? HTN (hypertension), benign ??? Hyperparathyroid bone disease ([facility]/HCC) s/p surgery ??? Morphea ??? [...] HTN, ESRD on HD, CVA presents to [facility] ED from OSH with altered mental status. Per pt's daughter, pt was at dialysis when the treatment team noticed the pt was altered and sent her to OSH where CT Head revealed right frontal convexity SDH. Decision was made t transfer pt to [facility] for further workup and Neurosurgical evaluation. Pt's medications include no anticoagulants/antiplatelets Plan: Neurosurgery to sign off. No Neurosurgical interventions at this time. Symptoms and radiographic imaging concerning for possible NPH. Recommend follow up with Neurology for NPH workup. Case discussed with Dr. Davis at 19:41. Franck Mckeon APRN-PRIMER BOXER 09/29/2023 7:47 PM OR MANAGER ASSET PROTECTION Associated attestation - Jesus Davis MD - 10/01/2023 1:40 PM SENIOR MANAGER ASSET PROTECTION I have seen and examined the patient with the resident/fellow and I agree with the findings and plan of care as documented. documented in this encounter ED Notes * Shayy Bynum RN - 09/30/2023 7:30 AM CST Gold team notified of patient's hypertension, no new orders received at this time OR MANAGER ASSET PROTECTION * Shayy Bynum RN - 09/30/2023 7:24 AM CST Fall mats ordered for patient OR MANAGER ASSET PROTECTION * Mamta Shaw RN - 09/30/2023 12:29 AM CST Sleeping resp even and unlabored. Vss. SR up x 2. CL in reach. Will continue to monitor. OR MANAGER ASSET PROTECTION * Mamta Shaw RN - 09/29/2023 8:00 PM CST Pt resting comfortable in bed w daughter at bedside. MD also at bedside for assessment. MD given pthome medication list. SR up x 2 for pt safety. CL in reach. Will continue to closely monitor. OR MANAGER ASSET PROTECTION * Jenaro Marshall MD - 09/29/2023 6:01 [...] is stable. Plan is likely admission pending technology consultant recommendations. Vitals: 09/29/23 1745 09/29/23 1800 [...] Dr. Marshall. Jenaro Marshall MD Emergency Medicine OR MANAGER ASSET PROTECTION * Alexis Atkins MD - 09/29/2023 4:08 PM CST ED ATTENDING NOTE History: Kirsty Rea is a 82 year old female with a past medical history of CVA, ESRD, Dementia, and HTN presenting to the ED as a transfer from [facility] c/o syncopal episode during dialysis. Patient reports [...] kidney disease) stage 3, GFR 30-59 ml/min ([facility]) proteinuria; Sociology Faculty Member = Dr. Reyes ??? CVA (cerebral vascular accident) ([facility]) 08/14/2022 ??? Dementia without behavioral disturbance ([facility]) mild ??? ESRD on dialysis ([facility] ??? Gout ??? HTN (hypertension), benign ??? 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 Morphea [...] nursing note reviewed. Exam conducted with a electrocardiogram technician present. Constitutional: General: She is not in [...] personal performance and is accurate and complete. OR MANAGER ASSET PROTECTION documented in this encounter Miscellaneous Notes * Coding Query - Heraclio Cabrera MD - 10/05/2023 8:03 AM CST DOCUMENTATION CLARIFICATION REQUEST Use the F2 function german to complete the query. Click ???Sign?? to file the note. TO: Dr. Cabrera FROM: Hilda Lujan RN CCDS , Email: [email or web address] Patient Name: Kirsty Rea Please review the [...] A PERMANENT PART OF THE MEDICAL RECORD. OR MANAGER ASSET PROTECTION * Coding Query - Rogelio Benitez MD - 10/03/2023 1:03 PM CST DOCUMENTATION CLARIFICATION REQUEST Use the F2 function german to complete the query. Click ???Sign?? to file the note. TO: Dr. Benitez FROM: Hilda Lujan RN CCDS , Email: [email or web address] Patient Name: Kirsty Rea Please review the [...] A PERMANENT PART OF THE MEDICAL RECORD. OR MANAGER ASSET PROTECTION * Code/Rapid Response Event - Freeman Whelan RN - 10/02/2023 6:42 PM SENIOR MANAGER ASSET PROTECTION RAPID RESPONSE EVENT NOTE [address] [address] Patient: Kirsty Rea Location: [facility] : 1940 Reason for Admission: trauma R frontal hematoma Provider Teams Team Comment Primary Team Specialty Team Pager 1st Contact 1st Contact Number [facility] Red Team Yes Internal Medicine -- Event Date/Time: 10/02/2023 1805 Summary of Events: The Rapid Response Team (PRODUCT TRANSFER PUMPER) was paged for SOB. Patient sitting up in bed upon PRODUCT TRANSFER PUMPER arrival, respirations appear fast and labored, intercostal muscles being used. Primary RN reportpatient was eating when all of the sudden she started having SOB. Patients SPO2 normally mid 90s onroom air, now 92% on 6L NC. BP taken, noted to be high, 214/68. Medicine team (international account executive B) called to bedside. PRN hydralazine given. [...] -- 80 18 (!) 98 % Outcome: PRODUCT TRANSFER PUMPER to be notified if patient has another SOB episode or decompensates. BP to be checked by primary RN. Freeman Whelan, RN Rapid Response Nurse OR MANAGER ASSET PROTECTION documented in this encounter Plan of Treatment Upcoming Encounters Date Type Department Care Team (Late st Contact Info) Description 12/11/2024 10:30 AM SENIOR MANAGER ASSET PROTECTION Appointment [facility] [address] [facility] [address] [place] [address] Jarett Reinoso MD [address] [place], [place] [id number] Christine Benitez MD [address] [place] [phone] Keyshawn Krueger MD [address] [place] [address] Armando Ferro, [address] [address] [phone] Scheduled Orders Name Type Priority Associated Diagnoses Orde r Schedule CT HEAD WO CONTRAST Imaging Routine Neuroma of foot 1 Occurrences starting 09/30/2023 until 09/30/2024 Scheduled Referrals Name Type Priority Associated Diagnoses Order Schedule Ref to Neurosurgery - [facility] Outpatient Referral Routine Subdural hematoma (HCC) Ordered: 10/04/2023 Ref to Neurosurgery [facility] Outpatient Referral Routine Subdural hematoma (HCC) Ordered: 10/04/2023 Ref to Cardiology [facility] Outpatient Referral Routine Hypertensive emergency Ordered: 10/05/2023 documented as of this encounter Procedures Procedure Name Priority Date/Time Associated Diagnosis Comments ECHO COMPLETE W CONTRAST Routine 10/05/2023 10:41 AM SENIOR MANAGER ASSET PROTECTION Subdural hematoma (HCC) CALCIUM IONIZED WHOLE BLOOD AM Draw 10/05/2023 6:07 AM SENIOR MANAGER ASSET PROTECTION CBC W AUTO DIFFERENTIAL Routine 10/05/2023 6:07 AM SENIOR MANAGER ASSET PROTECTION Fall, initial encounter COMPREHENSIVE METABOLIC PANEL Routine 10/05/2023 6:07 AM SENIOR MANAGER ASSET PROTECTION Fall, initial encounter PHOSPHORUS BLOOD Routine 10/05/2023 6:07 AM SENIOR MANAGER ASSET PROTECTION Syncope and collapse MAGNESIUM BLOOD Routine 10/05/2023 6:07 AM SENIOR MANAGER ASSET PROTECTION Syncope and collapse CALCIUM IONIZED WHOLE BLOOD AM Draw 10/04/2023 7:49 AM SENIOR MANAGER ASSET PROTECTION HEMODIALYSIS INPATIENT Routine 7:04 AM SENIOR MANAGER ASSET PROTECTION PTH INTACT W/O CALCIUM Routine 4:57 AM SENIOR MANAGER ASSET PROTECTION VITAMIN D 25-HYDROXY AM Draw 10/04/2023 4:57 AM SENIOR MANAGER ASSET PROTECTION CBC W AUTO DIFFERENTIAL Routine 10/04/2023 4:57 AM SENIOR MANAGER ASSET PROTECTION Fall, initial encounter COMPREHENSIVE METABOLIC PANEL Routine 10/04/2023 4:57 AM SENIOR MANAGER ASSET PROTECTION Fall, initial encounter PHOSPHORUS BLOOD Routine 10/04/2023 4:57 AM SENIOR MANAGER ASSET PROTECTION Syncope and collapse MAGNESIUM BLOOD Routine 10/04/2023 4:57 AM SENIOR MANAGER ASSET PROTECTION Syncope and collapse CARDIAC EKG ORDER 10/03/2023 2:2 1 PM SENIOR MANAGER ASSET PROTECTION CBC W AUTO DIFFERENTIAL Routine 10/03/2023 5:16 AM SENIOR MANAGER ASSET PROTECTION Fall, initial encounter COMPREHENSIVE METABOLIC PANEL Routine 10/03/2023 5:16 AM SENIOR MANAGER ASSET PROTECTION Fall, initial encounter PHOSPHORUS BLOOD Routine 10/03/2023 5:16 AM SENIOR MANAGER ASSET PROTECTION Syncope and collapse MAGNESIUM BLOOD Routine 10/03/2023 5:16 AM SENIOR MANAGER ASSET PROTECTION Syncope and collapse XR CHEST 1VW PORTABLE STAT 10/02/2023 6:36 PM SENIOR MANAGER ASSET PROTECTION Hypertensive emergency CBC W AUTO DIFFERENTIAL Routine 10/02/2023 7:33 AM SENIOR MANAGER ASSET PROTECTION Fall, initial encounter COMPREHENSIVE METABOLIC PANEL Routine 10/02/2023 7:33 AM SENIOR MANAGER ASSET PROTECTION Fall, initial encounter PHOSPHORUS BLOOD Routine 10/02/2023 7:33 AM SENIOR MANAGER ASSET PROTECTION Syncope and collapse MAGNESIUM BLOOD Routine 10/02/2023 7:33 AM SENIOR MANAGER ASSET PROTECTION Syncope and collapse CBC W AUTO DIFFERENTIAL Routine 10/01/2023 5:36 AM SENIOR MANAGER ASSET PROTECTION Fall, initial encounter COMPREHENSIVE METABOLIC PANEL Routine 10/01/2023 5:36 AM SENIOR MANAGER ASSET PROTECTION Fall, initial encounter PHOSPHORUS BLOOD Routine 10/01/2023 5:36 AM SENIOR MANAGER ASSET PROTECTION Syncope and collapse MAGNESIUM BLOOD Routine 10/01/2023 5:36 AM SENIOR MANAGER ASSET PROTECTION Syncope and collapse HEMODIALYSIS INPATIENT Routine 3 6:01 PM SENIOR MANAGER ASSET PROTECTION HEMODIALYSIS INPATIENT Routine 3 11:14 AM SENIOR MANAGER ASSET PROTECTION SARS-COV-2 (COVID-19)+INFLU A+B PCR RAPID STAT 09/30/2023 9:48 AM SENIOR MANAGER ASSET PROTECTION Syncope and collapse CBC W AUTO DIFFERENTIAL STAT 09/30/2023 5:41 AM SENIOR MANAGER ASSET PROTECTION Fall, initial encounter COMPREHENSIVE METABOLIC PANEL STAT 09/30/2023 5:41 AM SENIOR MANAGER ASSET PROTECTION Fall, initial encounter PHOSPHORUS BLOOD STAT 09/30/2023 5:41 AM SENIOR MANAGER ASSET PROTECTION Syncope and collapse MAGNESIUM BLOOD STAT 09/30/2023 5:41 AM SENIOR MANAGER ASSET PROTECTION Syncope and collapse HEPATITIS B SURFACE ANTIGEN W RFLX CONFIRMATION STAT 09/30/2023 5:41 AM SENIOR MANAGER ASSET PROTECTION ESRD (end stage renal disease) (HCC) IRON + TRANSFERRIN PANEL STAT 09/30/2023 5:41 AM SENIOR MANAGER ASSET PROTECTION Anemia, unspecified type FERRITIN JABARI 09/30/2023 5:41 AM SENIOR MANAGER ASSET PROTECTION Anemia, unspecified type TROPONIN-I HIGH SENSITIVE REFLEX 1HOUR Timed 09/29/2023 6:24 PM SENIOR MANAGER ASSET PROTECTION EKG 12-LEAD STAT 09/29/2023 5:23 PM SENIOR MANAGER ASSET PROTECTION Fall, initial encounter TEG 6 GLOBAL HEMOSTASIS W/ LYSIS STAT 09/29/2023 5:19 PM SENIOR MANAGER ASSET PROTECTION TEG 6S PLATELET MAPPING STAT 09/29/2023 5:19 PM SENIOR MANAGER ASSET PROTECTION PT-INR [facility] STAT 09/29/2023 5:19 PM SENIOR MANAGER ASSET PROTECTION TROPONIN-I HIGH SENSITIVE BASELINE + 1HR STAT 09/29/2023 5:19 PM SENIOR MANAGER ASSET PROTECTION CBC W AUTO DIFFERENTIAL STAT 09/29/2023 5:19 PM SENIOR MANAGER ASSET PROTECTION COMPREHENSIVE METABOLIC PANEL STAT 09/29/2023 5:19 PM SENIOR MANAGER ASSET PROTECTION MAGNESIUM BLOOD STAT 09/29/2023 5:19 PM SENIOR MANAGER ASSET PROTECTION CT CHEST ABDOMEN PELVIS W CONT STAT 09/29/2023 5:03 PM SENIOR MANAGER ASSET PROTECTION Fall, initial encounter CT LUMBAR SPINE WO CONTRAST STAT 09/29/2023 5:03 PM SENIOR MANAGER ASSET PROTECTION Fall, initial encounter CT THORACIC SPINE WO CONTRAST STAT 09/29/2023 5:03 PM SENIOR MANAGER ASSET PROTECTION Fall, initial encounter CT CERVICAL SPINE WO CONTRAST STAT 09/29/2023 5:03 PM SENIOR MANAGER ASSET PROTECTION Fall, initial encounter CT HEAD WO CONTRAST STAT 09/29/2023 5 :03 PM SENIOR MANAGER ASSET PROTECTION Fall, initial encounter documented in this encounter Results * ECHO COMPLETE W CONTRAST (10/05/2023 10:41 AM SENIOR MANAGER ASSET PROTECTION) BSA [id number] m2 [facility] CV FUJ I PACS LV [...] 6.9 5.9 - 8.3 cm [facility] I PACS RVOT VTI 19.273 cm [facility] CV [facility] I PACS TV S' carlton 13.315 cm/s [facility] CV [facility] I PACS TAPSE 2.377 1.7 cm [facility] CV [facility] I PACS RVOT pk carlton 0.84 m/s [facility] CV F U PACS RA area 14.437 cm2 [facility] CV [facility] I PACS AV mn grad 6 mmHg [facility] CV FU JI PACS AV pk grad 10 mmHg [facility] CV FU JI PACS AV mn carlton 1.18 m/s [facility] CV [facility] I PACS AV pk carlton 1.62 m/s [facility] CV [facility] I PACS AV VTI 35 cm [facility] CV [facility] I PACS LVOT pk grad 5.431 mmHg [facility] LVOT VTI 25.533 cm [facility] CV [facility] I PACS AV area cont VTI 2.4 cm2 [facility] area pk carlton 2.3 cm2 [facility] Doppler carlton index pk carlton 0.72 [facility] Dimensionless Index 0.73 [facility] MV mn grad 2 mmHg [facility] CV FU JI PACS MV pk grad 6 mmHg SSM CV FU JI PACS MV mn carlton 0.65 m/s [facility] CV [facility] I PACS MV pk carlton 126.125 cm/s [facility] CV FUJ I PACS MV PHT 104 ms SSM CV [facility] I PACS MV area PHT 2.11 [...] Index 32 ml/m2 [facility] CV FUJI PACS [id number] 6.504 cm [facility] CV FUJ I PACS [id number] 7.107 cm [facility] CV FUJ I PACS [...] Laterality Modality Ultrasound Narrative 10/05/2023 11:06 AM SENIOR MANAGER ASSET PROTECTION ?Left??Ventricle: Left ventricle size is normal. Mildly [...] CALCIUM IONIZED WHOLE BLOOD (10/05/2023 6:07 AM SENIOR MANAGER ASSET PROTECTION) Calcium Ionized 1.28 mmol/L 10/05/2023 6:16 AM [facility] pH 7.50(H) 7.35 - 7.45 pH 10/05/2023 6:16 AM [facility] Ionized Calcium pH Adjusted 1.33 1.19 - 1.34 mmol/L 10/05/2023 6:16 AM [facility] Blood BLOOD SPECIMEN / Unknown Lab Venipuncture / Unknown 10/05/2023 6:07 AM SENIOR MANAGER ASSET PROTECTION 10/05/2023 6:12 AM [facility] Rogelio Benitez MD LAB - CHEMISTRY PATRICIA CASIANO [address] [address], [facility] [phone] * PHOSPHORUS BLOOD (10/05/2023 6:07 AM SENIOR MANAGER ASSET PROTECTION) Phosphorus 3.1 2.9 - 5.1 mg/dL 10/05/2023 6:48 AM SENIOR MANAGER ASSET PROTECTION [facility] Blood BLOOD SPECIMEN / Unknown Lab Venipuncture / Unknown 10/05/2023 6:07 AM SENIOR MANAGER ASSET PROTECTION 10/05/2023 6:34 AM SENIOR MANAGER ASSET PROTECTION Jenaro Marshall MD LAB - CHEMISTRY PATRICIA CASIANO Performing Organization Address [facility]/ZIP Co de Phone Number [address] [address], [place] [phone] * MAGNESIUM BLOOD (10/05/2023 6:07 AM SENIOR MANAGER ASSET PROTECTION) Magnesium 1.8 1.6 - 2.6 mg/dL 10/05/2023 6:48 AM [facility] Blood BLOOD SPECIMEN / Unknown Lab Venipuncture / Unknown 10/05/2023 6:07 AM SENIOR MANAGER ASSET PROTECTION 10/05/2023 6:34 AM SENIOR MANAGER ASSET PROTECTION Jenaro Marshall MD LAB - CHEMISTRY PATRICIA CASIANO Performing Organization Address [facility]/ZIP Co de Phone Number [address] [address], [place] [phone] * (ABNORMAL) COMPREHENSIVE METABOLIC PANEL (10/05/2023 6:07 AM SENIOR MANAGER ASSET PROTECTION) BUN 20 7 - 26 mg/dL 10/05/2023 [...] Lab Venipuncture / Unknown 10/05/2023 6:07 AM SENIOR MANAGER ASSET PROTECTION 10/05/2023 6:34 AM [facility] Jenaro Marshall MD LAB - CHEMISTRY PATRICIA CASIANO [facility] Organization Address City/State/ZIP Co de Phone Number [facility] [address] [place] [address] [phone] * (ABNORMAL) CBC W AUTO DIFFERENTIAL (10/05/2023 6:07 AM [facility]) WBC 6.2 3.5 - 10.5 10? 3 [...] Lab Venipuncture / Unknown 10/05/2023 6:07 AM SENIOR MANAGER ASSET PROTECTION 10/05/2023 6:16 AM [facility] Jenaro Marshall MD LAB - HEMATOLOGY ORD ERABLES Performing Organization Address City/State/[facility] Co de Phone Number [facility] [address] [place] [phone] [phone] * (ABNORMAL) CALCIUM IONIZED WHOLE BLOOD (10/04/2023 7:49 AM SENIOR MANAGER ASSET PROTECTION) Calcium Ionized 1.16 mmol/L 10/04/2023 9:35 AM [facility] pH 7.51(H) 7.35 - 7.45 pH 10/04/2023 9:35 AM [facility] Ionized Calcium pH Adjusted 1.21 1.19 - 1.34 mmol/L 10/04/2023 9:35 AM SENIOR MANAGER ASSET PROTECTION [facility] Blood BLOOD SPECIMEN / Unknown Lab Venipuncture / Unknown 10/04/2023 7:49 AM SENIOR MANAGER ASSET PROTECTION 10/04/2023 9:33 AM SENIOR MANAGER ASSET PROTECTION Rogelio Benitez MD LAB - CHEMISTRY PATRICIA CASIANO Performing Organization Address City/[facility]/ZIP Co de Phone Number [address] [address], [place] [phone] * PHOSPHORUS BLOOD (10/04/2023 4:57 AM SENIOR MANAGER ASSET PROTECTION) Phosphorus 3.9 2.9 - 5.1 mg/dL 10/04/2023 6:24 AM SENIOR MANAGER ASSET PROTECTION [facility] Blood BLOOD SPECIMEN / Unknown Lab Venipuncture / Unknown 10/04/2023 4:57 AM SENIOR MANAGER ASSET PROTECTION 10/04/2023 5:50 AM SENIOR MANAGER ASSET PROTECTION Jenaro Marshall MD LAB - CHEMISTRY PATRICIA CASIANO Performing Organization Address City/[facility]/ZIP Co de Phone Number [address] [address], [place] [phone] * MAGNESIUM BLOOD (10/04/2023 4:57 AM SENIOR MANAGER ASSET PROTECTION) Magnesium 1.9 1.6 - 2.6 mg/dL 10/04/2023 6:24 AM SENIOR MANAGER ASSET PROTECTION [facility] Blood BLOOD SPECIMEN / Unknown Lab Venipuncture / Unknown 10/04/2023 4:57 AM SENIOR MANAGER ASSET PROTECTION 10/04/2023 5:50 AM SENIOR MANAGER ASSET PROTECTION Jenaro Marshall MD LAB - CHEMISTRY PATRICIA CASIANO Performing Organization Address City/[facility]/ZIP Co de Phone Number [address] [address], [place] [phone] * (ABNORMAL) COMPREHENSIVE METABOLIC PANEL (10/04/2023 4:57 AM SENIOR MANAGER ASSET PROTECTION) BUN 34(H) 7 - 26 mg/dL 10/04/2023 6:24 AM SENIOR MANAGER ASSET PROTECTION [facility] Creatinine 5.30(H) 0.56 - 0.96 mg/dL 10/04/2023 6:24 AM [facility] Sodium 141 136 - 145 mmol/L 10/04/2023 6:24 AM [facility] Potassium 4.7(H) 3.5 - 4.5 mmol/L 10/04/2023 6:24 AM [facility] Chloride 103 98 - 107 mmol/L 10/04/2023 6:24 AM [facility] CO2 26 22 - 29 mmol/L 10/04/2023 6:24 AM [facility] Glucose 92 70 - 115 mg/dL 10/04/2023 6:24 AM [facility] Calcium 10.0 8.4 - 10.2 mg/dL 10/04/2023 6:24 AM [facility] Protein Total 5.5(L) 6.0 - 8.3 g/dL 10/04/2023 6:24 AM [facility] Albumin 2.5(L) 3.4 - 5.0 g/dL 10/04/2023 6:24 AM [facility] Bilirubin Total 0.6 0.2 - 1.2 mg/dL 10/04/2023 6:24 AM [facility] Alkaline Phosphatase 130 40 - 150 U/L 10/04/2023 6:24 AM [facility] ALT 14 5 - 55 U/L 10/04/2023 6:24 AM [facility] AST 16 5 - 34 U/L 10/04/2023 6:24 AM [facility] Anion Gap 12 6 - 16 10/04/2023 6:24 AM [facility] BUN/Creatinine Ratio 6(L) 7 - 23 10/04/2023 6:24 AM [facility] Osmolality Calculated 299(H) 275 - 295 mOsm/kg 10/04/2023 6:24 AM [facility] Albumin/Globulin Ratio 0.8(L) 1.1 - 2.3 10/04/2023 6:24 AM [facility] eGFR by CKD-EPI 8(L) >=90 mL/min/1.7 3 m2 10/04/2023 6:24 AM [facility] Blood BLOOD SPECIMEN / Unknown Lab Venipuncture / Unknown 10/04/2023 4:57 AM SENIOR MANAGER ASSET PROTECTION 10/04/2023 5:50 AM SENIOR MANAGER ASSET PROTECTION Jenaro Marshall MD LAB - CHEMISTRY PATRICIA Garcia Organization Address City/State/ZIP Co de Phone Number [facility] [address] [place] [phone], [facility] [phone] * (ABNORMAL) CBC W AUTO DIFFERENTIAL (10/04/2023 4:57 AM SENIOR MANAGER ASSET PROTECTION) WBC 4.7 3.5 - 10.5 10? 3 /uL 10/04/2023 6:30 AM [facility] RBC 2.83(L) 3.80 - 5.20 10? 6 /uL 10/04/2023 6:30 AM [facility] Hemoglobin 8.3(L) 12.0 - 15.6 g/dL 10/04/2023 6:30 AM [facility] Hematocrit 26.4(L) 35.0 - 45.0 % 10/04/2023 6:30 AM [facility] MCV 93.3 80.7 - 98.3 fL 10/04/2023 6:30 AM [facility] MCH 29.3 26.7 - 34.0 pg 10/04/2023 6:30 AM [facility] MCHC 31.4 30.8 - 35.9 g/dL 10/04/2023 6:30 AM [facility] RDW-SD 49.1 36.0 - 50.0 fL 10/04/2023 6:30 AM [facility] RDW-CV 14.5 11.2 - 14.8 % 10/04/2023 6:30 AM [facility] Platelet Count 239 150 - 400 10? 3 /uL 10/04/2023 6:30 AM [facility] MPV 8.7(L) 9.4 - 12.9 fL 10/04/2023 6:30 AM [facility] nRBC Absolute 0.00 0 10? 3 /uL 10/04/2023 6:30 AM [facility] nRBC Auto 0.0 0 /100 WBC 10/04/2023 6:30 AM [facility] Neutrophils % 56.9 35.0 - 70.0 % 10/04/2023 6:30 AM [facility] Lymphocytes % 26.2 20.0 - 43.0 % 10/04/2023 6:30 AM [facility] Monocytes % 12.9 5.0 - 13.0 % 10/04/2023 6:30 AM [facility] Eosinophils % 2.2 0.0 - 6.0 % 10/04/2023 6:30 AM [facility] Basophil % 0.9 0.0 - 2.0 % 10/04/2023 6:30 AM [facility] Neutrophils Absolute 2.65 1.60 - 7.00 10? 3 /uL 10/04/2023 6:30 AM [facility] Lymphocyte Absolute 1.22 1.10 - 3.90 10? 3 /uL 10/04/2023 6:30 AM [facility] Monocytes Absolute 0.60 0.26 - 1.07 10? 3 /uL 10/04/2023 6:30 AM [facility] Eosinophils Absolute 0.10 0.00 - 0.47 10? 3 /uL 10/04/2023 6:30 AM [facility] Basophils Absolute 0.04 0.00 - 0.08 10? 3 /uL 10/04/2023 6:30 AM [facility] Immature Granulocytes % 0.9 0.0 - 1.0 % 10/04/2023 6:30 AM [facility] Immature Granulocytes Absolute 0.04 10/04/2023 6:30 AM [facility] Blood BLOOD SPECIMEN / Unknown Lab Venipuncture / Unknown 10/04/2023 4:57 AM SENIOR MANAGER ASSET PROTECTION 10/04/2023 5:50 AM [facility] Jenaro Marshall MD LAB - HEMATOLOGY ORD ERABLES [facility] [address] [place] [address], [facility] [phone] * VITAMIN D 25-HYDROXY (10/04/2023 4:57 AM SENIOR MANAGER ASSET PROTECTION) Vitamin D, 25 Hydroxy 30.7 30.0 - 80.0 ng/mL 10/04/2023 6:38 AM [facility] Comment: The recommendations for 25-Hydroxy Vitamin [...] Lab Venipuncture / Unknown 10/04/2023 4:57 AM SENIOR MANAGER ASSET PROTECTION 10/04/2023 5:50 AM SENIOR MANAGER ASSET PROTECTION Rogelio Benitez MD LAB - CHEMISTRY PATRICIA CASIANO Performing Organization Address [facility]/ZIP Co de Phone Number [address] [address], [facility] [phone] * (ABNORMAL) PTH INTACT W/O CALCIUM (10/04/2023 4:57 AM SENIOR MANAGER ASSET PROTECTION) PTH Intact 162.0(H) 8.0 - 77.0 pg/mL 10/04/2023 6:22 AM [facility] Blood BLOOD SPECIMEN / Unknown Lab Venipuncture / Unknown 10/04/2023 4:57 AM SENIOR MANAGER ASSET PROTECTION 10/04/2023 5:45 AM SENIOR MANAGER ASSET PROTECTION Rogelio Benitez MD LAB - CHEMISTRY PATRICIA CASIANO Performing Organization Address City/[facility]/ZIP Co de Phone Number [address] [address], [facility] [phone] * CARDIAC EKG ORDER (10/03/2023 2:21 PM SENIOR MANAGER ASSET PROTECTION) Narrative 10/03/2023 2:21 PM SENIOR MANAGER ASSET PROTECTION Ordered by an unspecified provider. Scanned Document CARDIAC SERVICES ORD ERABLES * PHOSPHORUS BLOOD (10/03/2023 5:16 AM SENIOR MANAGER ASSET PROTECTION) Phosphorus 3.7 2.9 - 5.1 mg/dL 10/03/2023 7:13 AM SENIOR MANAGER ASSET PROTECTION [facility] Blood BLOOD SPECIMEN / Unknown Lab Venipuncture / Unknown 10/03/2023 5:16 AM SENIOR MANAGER ASSET PROTECTION 10/03/2023 6:34 AM SENIOR MANAGER ASSET PROTECTION Jenaro Marshall MD LAB - CHEMISTRY PATRICIA CASIANO [address] [address], [facility] [phone] * MAGNESIUM BLOOD (10/03/2023 5:16 AM SENIOR MANAGER ASSET PROTECTION) Pathologist [facility] Magnesium 1.8 1.6 - 2.6 mg/dL 10/03/2023 7:13 AM [facility] Blood BLOOD SPECIMEN / Unknown Lab Venipuncture / Unknown 10/03/2023 5:16 AM SENIOR MANAGER ASSET PROTECTION 10/03/2023 6:34 AM SENIOR MANAGER ASSET PROTECTION Jenaro Marshall MD LAB - CHEMISTRY PATRICIA CASIANO [address] [address], [facility] [phone] * (ABNORMAL) COMPREHENSIVE METABOLIC PANEL (10/03/2023 5:16 AM SENIOR MANAGER ASSET PROTECTION) BUN 25 7 - 26 mg/dL 10/03/2023 7:26 AM [facility] Creatinine 4.24(H) 0.56 - 0.96 mg/dL 10/03/2023 7:26 AM [facility] Sodium 141 136 - 145 mmol/L 10/03/2023 7:26 AM [facility] Potassium 3.8 3.5 - 4.5 mmol/L 10/03/2023 7:26 AM [facility] Chloride 104 98 - 107 mmol/L 10/03/2023 7:26 AM [facility] CO2 29 22 - 29 mmol/L 10/03/2023 7:26 AM [facility] Glucose 114 70 - 115 mg/dL 10/03/2023 7:26 AM [facility] Calcium 10.1 8.4 - 10.2 mg/dL 10/03/2023 7:26 AM [facility] Protein Total 5.8(L) 6.0 - 8.3 g/dL 10/03/2023 7:26 AM [facility] Albumin 2.7(L) 3.4 - 5.0 g/dL 10/03/2023 7:26 AM [facility] Bilirubin Total 0.5 0.2 - 1.2 mg/dL 10/03/2023 7:26 AM [facility] Alkaline Phosphatase 136 40 - 150 U/L 10/03/2023 7:26 AM [facility] ALT 15 5 - 55 U/L 10/03/2023 7:26 AM [facility] AST 17 5 - 34 U/L 10/03/2023 7:26 AM [facility] Anion Gap 8 6 - 16 10/03/2023 7:26 AM [facility] BUN/Creatinine Ratio 6(L) 7 - 23 10/03/2023 7:26 AM [facility] Osmolality Calculated 297(H) 275 - 295 mOsm/kg 10/03/2023 7:26 AM [facility] Albumin/Globulin Ratio 0.9(L) 1.1 - 2.3 10/03/2023 7:26 AM [facility] eGFR by CKD-EPI 10(L) >=90 mL/min/1.7 3 m2 10/03/2023 7:26 AM [facility] Blood BLOOD SPECIMEN / Unknown Lab Venipuncture / Unknown 10/03/2023 5:16 AM SENIOR MANAGER ASSET PROTECTION 10/03/2023 6:34 AM SENIOR MANAGER ASSET PROTECTION Jenaro Marshall MD LAB - CHEMISTRY PATRICIA CASIANO [facility] Organization Address City/State/ZIP Co de Phone Number [facility] [address] [place] [address], [facility] [phone] * (ABNORMAL) CBC W AUTO DIFFERENTIAL (10/03/2023 5:16 AM [facility]) WBC 11.4(H) 3.5 - 10.5 10? 3 /uL 10/03/2023 7:16 AM [facility] RBC 2.97(L) 3.80 - 5.20 10? 6 /uL 10/03/2023 7:16 AM [facility] Hemoglobin 8.6(L) 12.0 - 15.6 g/dL 10/03/2023 7:16 AM [facility] Hematocrit 27.9(L) 35.0 - 45.0 % 10/03/2023 7:16 AM [facility] MCV 93.9 80.7 - 98.3 fL 10/03/2023 7:16 AM [facility] MCH 29.0 26.7 - 34.0 pg 10/03/2023 7:16 AM [facility] MCHC 30.8 30.8 - 35.9 g/dL 10/03/2023 7:16 AM [facility] RDW-SD 49.0 36.0 - 50.0 fL 10/03/2023 7:16 AM [facility] RDW-CV 14.4 11.2 - 14.8 % 10/03/2023 7:16 AM [facility] Platelet Count 275 150 - 400 10? 3 /uL 10/03/2023 7:16 AM [facility] MPV 8.9(L) 9.4 - 12.9 fL 10/03/2023 7:16 AM [facility] nRBC Absolute 0.00 0 10? 3 /uL 10/03/2023 7:16 AM [facility] nRBC Auto 0.0 0 /100 WBC 10/03/2023 7:16 AM [facility] Neutrophils % 77.3(H) 35.0 - 70.0 % 10/03/2023 7:16 AM [facility] Lymphocytes % 11.7(L) 20.0 - 43.0 % 10/03/2023 7:16 AM [facility] Monocytes % 8.7 5.0 - 13.0 % 10/03/2023 7:16 AM [facility] Eosinophils % 0.8 0.0 - 6.0 % 10/03/2023 7:16 AM [facility] Basophil % 0.7 0.0 - 2.0 % 10/03/2023 7:16 AM [facility] Neutrophils Absolute 8.79(H) 1.60 - 7.00 10? 3 /uL 10/03/2023 7:16 AM [facility] Lymphocyte Absolute 1.33 1.10 - 3.90 10? 3 /uL 10/03/2023 7:16 AM [facility] Monocytes Absolute 0.99 0.26 - 1.07 10? 3 /uL 10/03/2023 7:16 AM [facility] Eosinophils Absolute 0.09 0.00 - 0.47 10? 3 /uL 10/03/2023 7:16 AM [facility] Basophils Absolute 0.08 0.00 - 0.08 10? 3 /uL 10/03/2023 7:16 AM [facility] Immature Granulocytes % 0.8 0.0 - 1.0 % 10/03/2023 7:16 AM [facility] Immature Granulocytes Absolute 0.09 10/03/2023 7:16 AM [facility] Blood BLOOD SPECIMEN / Unknown Lab Venipuncture / Unknown 10/03/2023 5:16 AM [facility] 10/03/2023 6:34 AM [facility] Jenaro Marshall MD LAB - HEMATOLOGY ORD ERABLES [facility] [address] [place] [address], [facility] [phone] * XR CHEST 1VW PORTABLE (10/02/2023 6:36 PM [facility]) Anatomical Region Laterality Modality Chest Radiographic Marychuy ging 10/03/2023 7:34 AM [facility] Impressions 10/03/2023 11:39 AM [facility] IMPRESSION: Mild left base atelectasis. Report dictated by Ranjith Valdez MD, MD (radiology administrator). Debby Hester MD have personally reviewed and interpreted this examination/study. > Interpreting Provider: Debby James MD on 10/03/2023 11:39 AM Narrative 10/03/2023 11:39 AM [facility] PROCEDURE: ??XR CHEST 1VW PORTABLE, DATE/TIME OF EXAM: ??10/02/2023 6:36 PM, LOCATION ??[facility] INDICATION: I16.1: Hypertensive emergency ADDITIONAL CLINICAL [...] PORTABLE, DATE/TIME OF EXAM: 10/02/2023 6:36PM, LOCATION [facility] INDICATION: I16.1: Hypertensive emergency ADDITIONAL CLINICAL [...] Report dictated by Ranjith Valdez MD, MD (radiology administrator). Debby Hester MD have personally reviewed and interpreted this examination/study. > Interpreting Provider: Debby James MD on 10/03/2023 11:39 AM Rogelio Benitez MD DIAGNOSTIC IMAGING O RDERABLES * PHOSPHORUS BLOOD (10/02/2023 7:33 AM S[employer]IOR MANAGER [employer]) Phosphorus 3.3 2.9 - 5.1 mg/dL 10/02/2023 8:36 AM [facility] Blood BLOOD SPECIMEN / Unknown Lab Venipuncture / Unknown 10/02/2023 7:33 AM [employer] 10/02/2023 8:03 AM [employer] Jenaro Marshall MD LAB - CHEMISTRY PATRICIA CASIANO [facility] [address] [place] [phone], [place] [phone] * MAGNESIUM BLOOD (10/02/2023 7:33 AM S[employer]IOR [employer]NAGER [employer]OTECTION) Pathologist [facility] Magnesium 1.8 1.6 - 2.6 mg/dL 10/02/2023 8:36 AM [facility] Blood BLOOD SPECIMEN / Unknown Lab Venipuncture / Unknown 10/02/2023 7:33 AM [employer] 10/02/2023 8:03 AM [employer] Jenaro Marshall MD LAB - CHEMISTRY PATRICIA CASIANO [address] [address], [place] [phone] * (ABNORMAL) COMPREHENSIVE METABOLIC PANEL (10/02/2023 7:33 AM S[employer]IOR [employer]GER [employer]) BUN 11 7 - 26 mg/dL 10/02/2023 8:36 AM [facility] Creatinine 2.38(H) 0.56 - 0.96 mg/dL 10/02/2023 8:36 AM [facility] Sodium 139 136 - 145 mmol/L 10/02/2023 8:36 AM [facility] Potassium 3.4(L) 3.5 - 4.5 mmol/L 10/02/2023 8:36 AM [facility] Chloride 99 98 - 107 mmol/L 10/02/2023 8:36 AM [facility] CO2 28 22 - 29 mmol/L 10/02/2023 8:36 AM [facility] Glucose 93 70 - 115 mg/dL 10/02/2023 8:36 AM [facility] Calcium 10.0 8.4 - 10.2 mg/dL 10/02/2023 8:36 AM [facility] Protein Total 5.6(L) 6.0 - 8.3 g/dL 10/02/2023 8:36 AM [facility] Albumin 2.5(L) 3.4 - 5.0 g/dL 10/02/2023 8:36 AM [facility] Bilirubin Total 0.5 0.2 - 1.2 mg/dL 10/02/2023 8:36 AM [facility] Alkaline Phosphatase 128 40 - 150 U/L 10/02/2023 8:36 AM [facility] ALT 13 5 - 55 U/L 10/02/2023 8:36 AM [facility] AST 19 5 - 34 U/L 10/02/2023 8:36 AM [facility] Anion Gap 12 6 - 16 10/02/2023 8:36 AM [facility] BUN/Creatinine Ratio 5(L) 7 - 23 10/02/2023 8:36 AM [facility] Osmolality Calculated 287 275 - 295 mOsm/kg 10/02/2023 8:36 AM [facility] Albumin/Globulin Ratio 0.8(L) 1.1 - 2.3 10/02/2023 8:36 AM [facility] eGFR by CKD-EPI 20(L) >=90 mL/min/1.7 3 m2 10/02/2023 8:36 AM [facility] Blood BLOOD SPECIMEN / Unknown Lab Venipuncture / Unknown 10/02/2023 7:33 AM [employer] 10/02/2023 8:03 AM [facility] Jenaro Marshall MD LAB - CHEMISTRY PATRICIA CASIANO [facility] Organization Address City/State/ZIP Co de Phone Number [facility] [address] [place] [address], [facility] [phone] * (ABNORMAL) CBC W AUTO DIFFERENTIAL (10/02/2023 7:33 AM [facility]) WBC 7.2 3.5 - 10.5 10? 3 /uL 10/02/2023 8:07 AM [facility] RBC 3.02(L) 3.80 - 5.20 10? 6 /uL 10/02/2023 8:07 AM [facility] Hemoglobin 8.8(L) 12.0 - 15.6 g/dL 10/02/2023 8:07 AM [facility] Hematocrit 27.4(L) 35.0 - 45.0 % 10/02/2023 8:07 AM [facility] MCV 90.7 80.7 - 98.3 fL 10/02/2023 8:07 AM [facility] MCH 29.1 26.7 - 34.0 pg 10/02/2023 8:07 AM [facility] MCHC 32.1 30.8 - 35.9 g/dL 10/02/2023 8:07 AM [facility] RDW-SD 46.9 36.0 - 50.0 fL 10/02/2023 8:07 AM [facility] RDW-CV 14.1 11.2 - 14.8 % 10/02/2023 8:07 AM [facility] Platelet Count 229 150 - 400 10? 3 /uL 10/02/2023 8:07 AM [facility] MPV 8.7(L) 9.4 - 12.9 fL 10/02/2023 8:07 AM [facility] nRBC Absolute 0.00 0 10? 3 /uL 10/02/2023 8:07 AM [facility] nRBC Auto 0.0 0 /100 WBC 10/02/2023 8:07 AM [facility] Neutrophils % 57.0 35.0 - 70.0 % 10/02/2023 8:07 AM [facility] Lymphocytes % 24.8 20.0 - 43.0 % 10/02/2023 8:07 AM [facility] Monocytes % 13.3(H) 5.0 - 13.0 % 10/02/2023 8:07 AM [facility] Eosinophils % 2.4 0.0 - 6.0 % 10/02/2023 8:07 AM [facility] Basophil % 1.0 0.0 - 2.0 % 10/02/2023 8:07 AM [facility] Neutrophils Absolute 4.13 1.60 - 7.00 10? 3 /uL 10/02/2023 8:07 AM [facility] Lymphocyte Absolute 1.79 1.10 - 3.90 10? 3 /uL 10/02/2023 8:07 AM [facility] Monocytes Absolute 0.96 0.26 - 1.07 10? 3 /uL 10/02/2023 8:07 AM [facility] Eosinophils Absolute 0.17 0.00 - 0.47 10? 3 /uL 10/02/2023 8:07 AM [facility] Basophils Absolute 0.07 0.00 - 0.08 10? 3 /uL 10/02/2023 8:07 AM [facility] Immature Granulocytes % 1.5(H) 0.0 - 1.0 % 10/02/2023 8:07 AM [facility] Immature Granulocytes Absolute 0.11 10/02/2023 8:07 AM [facility] Blood BLOOD SPECIMEN / Unknown Lab Venipuncture / Unknown 10/02/2023 7:33 AM [employer] 10/02/2023 7:56 AM [employer] Jenaro Marshall MD LAB - HEMATOLOGY LEO FENTON Performing Organization Address City/[facility] de Phone Number [facility] [address] [place] [id number], [facility] [phone] * (ABNORMAL) PHOSPHORUS BLOOD (10/01/2023 5:36 AM S[employer]IOR [employer]NAGER [employer]) Phosphorus 2.3(L) 2.9 - 5.1 mg/dL 10/01/2023 7:04 AM [facility] Blood BLOOD SPECIMEN / Unknown Lab Venipuncture / Unknown 10/01/2023 5:36 AM [employer] 10/01/2023 6:31 AM [employer] Jenaro Marshall MD LAB - CHEMISTRY PATRICIA CASIANO [facility] [address] [place] [address], [facility] [phone] * MAGNESIUM BLOOD (10/01/2023 5:36 AM SENIOR MANAGER [employer]OTECTION) Pathologist [facility] Magnesium 1.9 1.6 - 2.6 mg/dL 10/01/2023 7:04 AM [facility] Blood BLOOD SPECIMEN / Unknown Lab Venipuncture / Unknown 10/01/2023 5:36 AM [employer] 10/01/2023 6:31 AM [employer] Jenaro Marshall MD LAB - CHEMISTRY PATRICIA CASIANO Performing Organization Address [facility]/ZIP Co de Phone Number [address] [address], [facility] [phone] * (ABNORMAL) COMPREHENSIVE METABOLIC PANEL (10/01/2023 5:36 AM SENIOR MANAGER [employer]OTECTION) [facility] BUN 15 7 - 26 mg/dL 10/01/2023 7:06 AM [facility] Creatinine 2.52(H) 0.56 - 0.96 mg/dL 10/01/2023 7:06 AM [facility] Sodium 139 136 - 145 mmol/L 10/01/2023 7:06 AM [facility] Potassium 4.5 3.5 - 4.5 mmol/L 10/01/2023 7:06 AM [facility] Chloride 100 98 - 107 mmol/L 10/01/2023 7:06 AM [facility] CO2 26 22 - 29 mmol/L 10/01/2023 7:06 AM [facility] Glucose 86 70 - 115 mg/dL 10/01/2023 7:06 AM [facility] Calcium 10.0 8.4 - 10.2 mg/dL 10/01/2023 7:06 AM [facility] Protein Total 5.5(L) 6.0 - 8.3 g/dL 10/01/2023 7:06 AM [facility] Albumin 2.5(L) 3.4 - 5.0 g/dL 10/01/2023 7:06 AM [facility] Bilirubin Total 0.5 0.2 - 1.2 mg/dL 10/01/2023 7:06 AM [facility] Alkaline Phosphatase 122 40 - 150 U/L 10/01/2023 7:06 AM [facility] ALT 13 5 - 55 U/L 10/01/2023 7:06 AM [facility] AST 19 5 - 34 U/L 10/01/2023 7:06 AM [facility] Anion Gap 13 6 - 16 10/01/2023 7:06 AM [facility] BUN/Creatinine Ratio 6(L) 7 - 23 10/01/2023 7:06 AM [facility] Osmolality Calculated 288 275 - 295 mOsm/kg 10/01/2023 7:06 AM [facility] Albumin/Globulin Ratio 0.8(L) 1.1 - 2.3 10/01/2023 7:06 AM [facility] eGFR by CKD-EPI 19(L) >=90 mL/min/1.7 3 m2 10/01/2023 7:06 AM [facility] Blood BLOOD SPECIMEN / Unknown Lab Venipuncture / Unknown 10/01/2023 5:36 AM [employer] 10/01/2023 6:31 AM [facility] Jenaro Marshall MD LAB - CHEMISTRY PATRICIA CASIANO [facility] Organization Address [facility]/State/ZIP Co de Phone Number [facility] [address] [place] [address], [facility] [phone] * (ABNORMAL) CBC W AUTO DIFFERENTIAL (10/01/2023 5:36 AM [facility]) WBC 9.6 3.5 - 10.5 10? 3 /uL 10/01/2023 6:56 AM [facility] RBC 2.91(L) 3.80 - 5.20 10? 6 /uL 10/01/2023 6:56 AM [facility] Hemoglobin 8.5(L) 12.0 - 15.6 g/dL 10/01/2023 6:56 AM [facility] Hematocrit 27.0(L) 35.0 - 45.0 % 10/01/2023 6:56 AM [facility] MCV 92.8 80.7 - 98.3 fL 10/01/2023 6:56 AM [facility] MCH 29.2 26.7 - 34.0 pg 10/01/2023 6:56 AM [facility] MCHC 31.5 30.8 - 35.9 g/dL 10/01/2023 6:56 AM [facility] RDW-SD 47.8 36.0 - 50.0 fL 10/01/2023 6:56 AM [facility] RDW-CV 14.2 11.2 - 14.8 % 10/01/2023 6:56 AM [facility] Platelet Count 237 150 - 400 10? 3 /uL 10/01/2023 6:56 AM [facility] MPV 8.9(L) 9.4 - 12.9 fL 10/01/2023 6:56 AM [facility] nRBC Absolute 0.00 0 10? 3 /uL 10/01/2023 6:56 AM [facility] nRBC Auto 0.0 0 /100 WBC 10/01/2023 6:56 AM [facility] Neutrophils % 72.6(H) 35.0 - 70.0 % 10/01/2023 6:56 AM [facility] Lymphocytes % 13.9(L) 20.0 - 43.0 % 10/01/2023 6:56 AM [facility] Monocytes % 10.1 5.0 - 13.0 % 10/01/2023 6:56 AM [facility] Eosinophils % 2.1 0.0 - 6.0 % 10/01/2023 6:56 AM [facility] Basophil % 0.8 0.0 - 2.0 % 10/01/2023 6:56 AM [facility] Neutrophils Absolute 6.96 1.60 - 7.00 10? 3 /uL 10/01/2023 6:56 AM [facility] Lymphocyte Absolute 1.33 1.10 - 3.90 10? 3 /uL 10/01/2023 6:56 AM [facility] Monocytes Absolute 0.97 0.26 - 1.07 10? 3 /uL 10/01/2023 6:56 AM [facility] Eosinophils Absolute 0.20 0.00 - 0.47 10? 3 /uL 10/01/2023 6:56 AM [facility] Basophils Absolute 0.08 0.00 - 0.08 10? 3 /uL 10/01/2023 6:56 AM [facility] Immature Granulocytes % 0.5 0.0 - 1.0 % 10/01/2023 6:56 AM [facility] Immature Granulocytes Absolute 0.05 10/01/2023 6:56 AM [facility] Blood BLOOD SPECIMEN / Unknown Lab Venipuncture / Unknown 10/01/2023 5:36 AM [employer] 10/01/2023 6:29 AM [employer] Jenaro Marshall MD LAB - HEMATOLOGY ORD ERABLES [facility] [address] [place] [address], [facility] [phone] * SARS-COV-2 (COVID-19)+INFLU A+B PCR RAPID (09/30/2023 9:48 AM SENIOR [employer]NAGER [employer]) COVID-19 PCR Not detected Not detected 09/30/20 10:34 AM [facility] Influenza A Rapid ANGELA Not Detected Not Detected 09/30/2023 10:34 AM [facility] Influenza B ANEGLA Rapid Not Detected Not Detected 09/30/2023 10:34 AM [facility] Microbiology SPECIMEN FROM NASOPHARYNGEAL STRUCTURE / Unknown Collection / Unknown 09/30/2023 9:48 AM [employer] 09/30/2023 9:52 AM S[employer]IOR [employer]NA[employer] Narrative [facility] - 09/30/2023 10:34 AM [employer] Influenza assay performed by [employer]. [...] acid amplification assay performance was validated by [facility]. This test has been authorized by the [...] - MICROBIOLOGY Rosalina BAUM Performing Organization Address City/[facility]/ZIP Co de Phone Number [address] [address], [facility] [phone] * HEPATITIS B SURFACE ANTIGEN W RFLX CONFIRMATION (09/30/2023 5:41 AM SENIOR MANAGER [employer]) Hepatitis B Virus Surface Antigen Non-reacti ve Non-reacti ve 09/30/2023 12:28 PM [employer]IOR [employer]NA[employer] [facility] Blood BLOOD SPECIMEN / Unknown Venipuncture / Unknown 09/30/2023 5:41 AM [employer] 09/30/2023 5:49 AM [employer] Howard Weston MD LAB - CHEMISTRY PATRICIA CASIANO [address] [address], [facility] [phone] * (ABNORMAL) FERRITIN (09/30/2023 5:41 AM [employer]) Ferritin 2,026(H) 13 - 204 ng/mL 09/30/2023 8:25 AM S[employer]IOR [employer]NA[employer] [facility] Comment:Result obtained by vasyl eugene. Blood BLOOD SPECIMEN / Unknown Venipuncture / Unknown 09/30/2023 5:41 AM [employer] 09/30/2023 5:49 AM [employer] Jenaro Marshall MD LAB - CHEMISTRY PATRICIA CASIANO [address] [address], [place] [phone] * (ABNORMAL) IRON + TRANSFERRIN PANEL (09/30/2023 5:41 AM SENIOR MANAGER [employer]OTECTION) Pathologist [facility] Iron 77 40 - 150 ug/dL 09/30/2023 7:34 AM [facility] Transferrin 128(L) 174 - 382 mg/dL 09/30/2023 7:34 AM [facility] Transferrin Saturation % 48 16 - 50 % 09/30/2023 7:34 AM [facility] TIBC Calculated 160(L) 240 - 450 ug/dL 09/30/2023 7:34 AM [facility] Blood BLOOD SPECIMEN / Unknown Venipuncture / Unknown 09/30/2023 5:41 AM [employer] 09/30/2023 5:49 AM [employer] Jenaro Masrhall MD LAB - CHEMISTRY PATRICIA CASIANO [address] [address], [place] [phone] * PHOSPHORUS BLOOD (09/30/2023 5:41 AM [employer]) Phosphorus 3.5 2.9 - 5.1 mg/dL 09/30/2023 6:25 AM S[employer]IOR [employer]NA[employer] [facility] Blood BLOOD SPECIMEN / Unknown Venipuncture / Unknown 09/30/2023 5:41 AM [employer] 09/30/2023 5:58 AM [employer] Jenaro Marshall MD LAB - CHEMISTRY PATRICIA CASIANO [address] [address], [place] [phone] * MAGNESIUM BLOOD (09/30/2023 5:41 AM S[employer]IOR [employer]) Magnesium 1.9 1.6 - 2.6 mg/dL 09/30/2023 6:25 AM [facility] Blood BLOOD SPECIMEN / Unknown Venipuncture / Unknown 09/30/2023 5:41 AM [employer] 09/30/2023 5:58 AM [employer] Jenaro Marshall MD LAB - CHEMISTRY PATRICIA CASIANO [facility] Organization Address [facility] Co de Phone Number [facility] [address] [place] [phone] [phone] * (ABNORMAL) COMPREHENSIVE METABOLIC PANEL (09/30/2023 5:41 AM SENIOR [employer]NAGER [employer]) BUN 25 7 - 26 mg/dL 09/30/2023 6:33 AM [facility] Creatinine 4.52(H) 0.56 - 0.96 mg/dL 09/30/2023 6:33 AM [facility] Sodium 137 136 - 145 mmol/L 09/30/2023 6:33 AM [facility] Potassium 3.9 3.5 - 4.5 mmol/L 09/30/2023 6:33 AM [facility] Chloride 96(L) 98 - 107 mmol/L 09/30/2023 6:33 AM [facility] CO2 29 22 - 29 mmol/L 09/30/2023 6:33 AM [facility] Glucose 89 70 - 115 mg/dL 09/30/2023 6:33 AM [facility] Calcium 10.1 8.4 - 10.2 mg/dL 09/30/2023 6:33 AM [facility] Protein Total 5.2(L) 6.0 - 8.3 g/dL 09/30/2023 6:33 AM [facility] Albumin 2.4(L) 3.4 - 5.0 g/dL 09/30/2023 6:33 AM [facility] Bilirubin Total 0.5 0.2 - 1.2 mg/dL 09/30/2023 6:33 AM [facility] Alkaline Phosphatase 113 40 - 150 U/L 09/30/2023 6:33 AM [facility] ALT 9 5 - 55 U/L 09/30/2023 6:33 AM [facility] AST 14 5 - 34 U/L 09/30/2023 6:33 AM [facility] Anion Gap 12 6 - 16 09/30/2023 6:33 AM [facility] BUN/Creatinine Ratio 6(L) 7 - 23 09/30/2023 6:33 AM [facility] Osmolality Calculated 288 275 - 295 mOsm/kg 09/30/2023 6:33 AM [facility] Albumin/Globulin Ratio 0.9(L) 1.1 - 2.3 09/30/2023 6:33 AM [facility] eGFR by CKD-EPI 9(L) >=90 mL/min/1.7 3 m2 09/30/2023 6:33 AM [facility] Blood BLOOD SPECIMEN / Unknown Venipuncture / Unknown 09/30/2023 5:41 AM [employer] 09/30/2023 5:58 AM [facility] Jenaro Marshall MD LAB - CHEMISTRY PATRICIA CASIANO [facility] Organization Address City/State/ZIP Co de Phone Number [facility] [address] [place] [address], [facility] [phone] * (ABNORMAL) CBC W AUTO DIFFERENTIAL (09/30/2023 5:41 AM [facility]) WBC 7.7 3.5 - 10.5 10? 3 /uL 09/30/2023 5:58 AM [facility] RBC 2.62(L) 3.80 - 5.20 10? 6 /uL 09/30/2023 5:58 AM [facility] Hemoglobin 7.7(L) 12.0 - 15.6 g/dL 09/30/2023 5:58 AM [facility] Hematocrit 24.6(L) 35.0 - 45.0 % 09/30/2023 5:58 AM [facility] MCV 93.9 80.7 - 98.3 fL 09/30/2023 5:58 AM [facility] MCH 29.4 26.7 - 34.0 pg 09/30/2023 5:58 AM [facility] MCHC 31.3 30.8 - 35.9 g/dL 09/30/2023 5:58 AM [facility] RDW-SD 47.4 36.0 - 50.0 fL 09/30/2023 5:58 AM [facility] RDW-CV 14.0 11.2 - 14.8 % 09/30/2023 5:58 AM [facility] Platelet Count 214 150 - 400 10? 3 /uL 09/30/2023 5:58 AM [facility] MPV 8.5(L) 9.4 - 12.9 fL 09/30/2023 5:58 AM [facility] nRBC Absolute 0.00 0 10? 3 /uL 09/30/2023 5:58 AM [facility] nRBC Auto 0.0 0 /100 WBC 09/30/2023 5:58 AM [facility] Neutrophils % 63.4 35.0 - 70.0 % 09/30/2023 5:58 AM [facility] Lymphocytes % 21.9 20.0 - 43.0 % 09/30/2023 5:58 AM [facility] Monocytes % 12.4 5.0 - 13.0 % 09/30/2023 5:58 AM [facility] Eosinophils % 1.4 0.0 - 6.0 % 09/30/2023 5:58 AM [facility] Basophil % 0.6 0.0 - 2.0 % 09/30/2023 5:58 AM [facility] Neutrophils Absolute 4.90 1.60 - 7.00 10? 3 /uL 09/30/2023 5:58 AM [facility] Lymphocyte Absolute 1.69 1.10 - 3.90 10? 3 /uL 09/30/2023 5:58 AM [facility] Monocytes Absolute 0.96 0.26 - 1.07 10? 3 /uL 09/30/2023 5:58 AM [facility] Eosinophils Absolute 0.11 0.00 - 0.47 10? 3 /uL 09/30/2023 5:58 AM [facility] Basophils Absolute 0.05 0.00 - 0.08 10? 3 /uL 09/30/2023 5:58 AM [facility] Immature Granulocytes % 0.3 0.0 - 1.0 % 09/30/2023 5:58 AM [facility] Immature Granulocytes Absolute 0.02 09/30/2023 5:58 AM [facility] Blood BLOOD SPECIMEN / Unknown Venipuncture / Unknown 09/30/2023 5:41 AM [employer] 09/30/2023 5:55 AM [employer] Jenaro Marshall MD LAB - HEMATOLOGY ORD ELICEO Performing Organization Address City/[facility]/ZIP Co de Phone Number [address] [address], [facility] [phone] * (ABNORMAL) TROPONIN-I HIGH SENSITIVE REFLEX 1HOUR (09/29/2023 6:24 PM SENIOR MANAGER [employer]OTECTION) [facility] Troponin I High Sensitive 23(H) <=14 ng/L 09/29/2023 7:11 PM [facility] Delta Troponin I HS <0 <6 ng/L 09/29/2023 7:11 PM [facility] Blood BLOOD SPECIMEN / Unknown Venipuncture / Unknown 09/29/2023 6:24 PM [employer] 09/29/2023 6:32 PM S[employer]IOR [employer]NAGER [employer]OTECTION Alexis Atkins MD LAB - CHEMISTRY PATRICIA CASIANO Performing Organization Address [facility]/ZIP Co de Phone Number [address] [address], [place] [phone] * EKG 12-LEAD (09/29/2023 5:23 PM SENIOR MANAGER [employer]OTECTION) Ventricular Rate 72 BPM SL MUSE Atrial Rate 72 BPM [facility] MUSE P-R Interval 182 ms [facility] MUSE QRS Duration ms 84 ms [facility] MUSE Q-T Interval ms 424 ms [facility] MUSE QTC Calculation (Bezet) 464 ms [facility] MUSE Calculated P [place] 53 degrees [facility] MUSE Calculated R [place] 16 degrees [facility] MUSE Calculated T [place] 44 degrees [facility] MUSE Interpretation EKG NORMAL SINUS RHYTHM NONSPECIFIC ST ABNORMALITY ABNORMAL ECG WHEN COMPARED WITH ECG OF 21-AUG-2022 19:22, PREMATURE ATRIAL COMPLEXES ARE NO LONGER PRESENT [place] INTERVAL HAS DECREASED Confirmed by ARIAS ??JAMIE LAWRENCE ([id number]) on 10/01/2023 7:29:35 PM [facility] MUSE 09/29/2023 5:23 PM [employer] 10/01/2023 7:29 PM S[employer]IOR MANAGER [employer]OTECTION Alexis Atkins MD ECG ORDERABLES Performing Organization Address [facility] Co de Phone Number [facility] MUSE * PT-INR [facility] (09/29/2023 5:19 PM SENIOR MANAGER ASSET PROTECTION) [facility] PT 12.2 12.1 - 14.8 Seconds 09/29/2023 5:52 PM [facility] INR 0.9 See Comment 09/29/2023 5:52 PM [facility] Comment:The suggested therap eutic range for standard coumadin (warfarin) therapy is an INR of 2.0-3.0. For high-risk patients (Mechanical Mitral Valve Prosthesis, etc.), the suggested prophylactic therapeutic range is an INR of 2.5-3.5. Blood BLOOD SPECIMEN / Unknown Venipuncture / Unknown 09/29/2023 5:19 PM S[employer]IOR [employer]NAGER [employer] PROTECTION 09/29/2023 5:28 PM SENIOR MANAGER ASSET PROTECTION Alexis Atkins MD LAB - COAGULATION OR DERABLES Performing Organization Address [facility] Co de Phone Number [facility] [address] [place] [address], [facility] [phone] * (ABNORMAL) TEG 6S PLATELET MAPPING (09/29/2023 5:19 PM SENIOR MANAGER ASSET PROTECTION) Pathologist [facility] TEGPLM (Max Amplitude) Koalin 67.0 53.0 - [...] Unknown Venipuncture / Unknown 09/29/2023 5:19 PM SENIOR MANAGER [employer] PROTECTION 09/29/2023 5:31 PM SENIOR MANAGER [employer] PROTECTION Alexis Atkins MD LAB - HEMATOLOGY ORD ERABLES [address] [address], [facility] [phone] * (ABNORMAL) TEG 6 GLOBAL HEMOSTASIS W/ LYSIS (09/29/2023 5:19 PM SENIOR MANAGER ASSET PROTECTION) Citrated Kaolin R (Reaction Time) 3.2(L) 4.6 [...] Unknown Venipuncture / Unknown 09/29/2023 5:19 PM S[employer]IOR [employer]NAGER [employer] PROTECTION 09/29/2023 5:31 PM SENIOR MANAGER ASSET PROTECTION Alexis Atkins MD LAB - HEMATOLOGY [place] [address] [address], [place] [phone] * (ABNORMAL) TROPONIN-I HIGH SENSITIVE BASELINE + 1HR (09/29/2023 5:19 PM SENIOR MANAGER [employer] PROTECTION) Troponin I High Sensitive 26(H) <=14 ng/L 09/29/2023 6:01 PM SENIOR MANAGER [employer] PROTECTION [facility] Blood BLOOD SPECIMEN / Unknown Venipuncture / Unknown 09/29/2023 5:19 PM SENIOR MANAGER [employer] PROTECTION 09/29/2023 5:28 PM SENIOR MANAGER [employer] PROTECTION Alexis Atkins MD LAB - CHEMISTRY PATRICIA CASIANO Performing Organization Address City/[facility]/ZIP Co de Phone Number [address] [address], [place] [phone] * MAGNESIUM BLOOD (09/29/2023 5:19 PM SENIOR MANAGER [employer]ET PROTECTION) Pathologist [facility] Magnesium 1.6 1.6 - 2.6 mg/dL 09/29/2023 5:57 PM SENIOR MANAGER ASSET PROTECTION [facility] Blood BLOOD SPECIMEN / Unknown Venipuncture / Unknown 09/29/2023 5:19 PM SENIOR MANAGER [employer] PROTECTION 09/29/2023 5:28 PM SENIOR MANAGER ASS[employer] PROTECTION Alexis Atkins MD LAB - CHEMISTRY PATRICIA CASIANO [address] [address], [place] [phone] * (ABNORMAL) COMPREHENSIVE METABOLIC PANEL (09/29/2023 5:19 PM SENIOR MANAGER [employer]ET PROTECTION) BUN 18 7 - 26 mg/dL 09/29/2023 5:57 PM [facility] Creatinine 3.22(H) 0.56 - 0.96 mg/dL 09/29/2023 5:57 PM SENIOR MANAGER ASSET PROTECTION [facility] Sodium 139 136 - 145 mmol/L 09/29/2023 5:57 PM SENIOR MANAGER ASSET PROTECTION [facility] Potassium 3.1(L) 3.5 - 4.5 mmol/L 09/29/2023 5:57 PM [facility] Chloride 103 98 - 107 mmol/L 09/29/2023 5:57 PM [facility] CO2 25 22 - 29 mmol/L 09/29/2023 5:57 PM [facility] Glucose 82 70 - 115 mg/dL 09/29/2023 5:57 PM [facility] Calcium 8.5 8.4 - 10.2 mg/dL 09/29/2023 5:57 PM [facility] Protein Total 5.1(L) 6.0 - 8.3 g/dL 09/29/2023 5:57 PM [facility] Albumin 2.4(L) 3.4 - 5.0 g/dL 09/29/2023 5:57 PM [facility] Bilirubin Total 0.5 0.2 - 1.2 mg/dL 09/29/2023 5:57 PM [facility] Alkaline Phosphatase 111 40 - 150 U/L 09/29/2023 5:57 PM [facility] ALT 10 5 - 55 U/L 09/29/2023 5:57 PM [facility] AST 14 5 - 34 U/L 09/29/2023 5:57 PM [facility] Anion Gap 11 6 - 16 09/29/2023 5:57 PM [facility] BUN/Creatinine Ratio 6(L) 7 - 23 09/29/2023 5:57 PM [facility] Osmolality Calculated 289 275 - 295 mOsm/kg 09/29/2023 5:57 PM [facility] Albumin/Globulin Ratio 0.9(L) 1.1 - 2.3 09/29/2023 5:57 PM [facility] eGFR by CKD-EPI 14(L) >=90 mL/min/1.7 3 m2 09/29/2023 5:57 PM [facility] Blood BLOOD SPECIMEN / Unknown Venipuncture / Unknown 09/29/2023 5:19 PM SENIOR MANAGER ASSET PROTECTION 09/29/2023 5:28 PM [facility] Alexis Atkins MD LAB - CHEMISTRY PATRICIA CASIANO [facility] Organization Address City/State/ZIP Co de Phone Number [facility] [address] [place] [address], [facility] [phone] * (ABNORMAL) CBC W AUTO DIFFERENTIAL (09/29/2023 5:19 PM SENIOR MANAGER ASSET PROTECTION) WBC 9.2 3.5 - 10.5 10? 3 /uL 09/29/2023 5:53 PM [facility] RBC 2.95(L) 3.80 - 5.20 10? 6 /uL 09/29/2023 5:53 PM [facility] Hemoglobin 8.8(L) 12.0 - 15.6 g/dL 09/29/2023 5:53 PM [facility] Hematocrit 27.7(L) 35.0 - 45.0 % 09/29/2023 5:53 PM [facility] MCV 93.9 80.7 - 98.3 fL 09/29/2023 5:53 PM [facility] MCH 29.8 26.7 - 34.0 pg 09/29/2023 5:53 PM [facility] MCHC 31.8 30.8 - 35.9 g/dL 09/29/2023 5:53 PM [facility] RDW-SD 47.8 36.0 - 50.0 fL 09/29/2023 5:53 PM [facility] RDW-CV 14.0 11.2 - 14.8 % 09/29/2023 5:53 PM [facility] Platelet Count 233 150 - 400 10? 3 /uL 09/29/2023 5:53 PM [facility] MPV 8.6(L) 9.4 - 12.9 fL 09/29/2023 5:53 PM [facility] nRBC Absolute 0.00 0 10? 3 /uL 09/29/2023 5:53 PM [facility] nRBC Auto 0.0 0 /100 WBC 09/29/2023 5:53 PM [facility] Neutrophils % 68.6 35.0 - 70.0 % 09/29/2023 5:53 PM [facility] Lymphocytes % 21.1 20.0 - 43.0 % 09/29/2023 5:53 PM [facility] Monocytes % 8.4 5.0 - 13.0 % 09/29/2023 5:53 PM [facility] Eosinophils % 0.7 0.0 - 6.0 % 09/29/2023 5:53 PM [facility] Basophil % 0.7 0.0 - 2.0 % 09/29/2023 5:53 PM [facility] Neutrophils Absolute 6.33 1.60 - 7.00 10? 3 /uL 09/29/2023 5:53 PM [facility] Lymphocyte Absolute 1.95 1.10 - 3.90 10? 3 /uL 09/29/2023 5:53 PM SENIOR MANAGER ASSET PROTECTION [facility] Monocytes Absolute 0.77 0.26 - 1.07 10? 3 /uL 09/29/2023 5:53 PM [facility] Eosinophils Absolute 0.06 0.00 - 0.47 10? 3 /uL 09/29/2023 5:53 PM [facility] Basophils Absolute 0.06 0.00 - 0.08 10? 3 /uL 09/29/2023 5:53 PM [facility] Immature Granulocytes % 0.5 0.0 - 1.0 % 09/29/2023 5:53 PM [facility] Immature Granulocytes Absolute 0.05 09/29/2023 5:53 PM [facility] Blood BLOOD SPECIMEN / Unknown Venipuncture / Unknown 09/29/2023 5:19 PM SENIOR MANAGER ASSET PROTECTION 09/29/2023 5:29 PM SENIOR MANAGER ASSET PROTECTION Alexis Atkins MD LAB - HEMATOLOGY ORD ERABLES Performing Organization Address City/State/[facility] Co de Phone Number [facility] [address] [place] [address], [facility] [phone] * CT LUMBAR SPINE WO CONTRAST (09/29/2023 5:03 PM SENIOR MANAGER ASSET PROTECTION) Anatomical Region Laterality Modality Spine Computed Tomogra phy 09/29/2023 5:12 PM SENIOR MANAGER ASSET PROTECTION Impressions 09/29/2023 6:11 PM SENIOR MANAGER ASSET PROTECTION IMPRESSION: 1. Small acute extra-axial hematoma along [...] 09/29/2023 6:11 PM Narrative 09/29/2023 6:11 PM SENIOR MANAGER ASSET PROTECTION PROCEDURE: ??CT HEAD WO CONTRAST, CT LUMBAR [...] THORACIC SPINE WO CONTRAST (09/29/2023 5:03 PM SENIOR MANAGER ASSET PROTECTION) Anatomical Region Laterality Modality Spine Computed Tomogra phy 09/29/2023 5:12 PM SENIOR MANAGER ASSET PROTECTION Impressions 09/29/2023 6:11 PM SENIOR MANAGER ASSET PROTECTION IMPRESSION: 1. Small acute extra-axial hematoma along [...] 09/29/2023 6:11 PM Narrative 09/29/2023 6:11 PM SENIOR MANAGER ASSET PROTECTION PROCEDURE: ??CT HEAD WO CONTRAST, CT LUMBAR [...] ABDOMEN PELVIS W CONT (09/29/2023 5:03 PM SENIOR MANAGER ASSET PROTECTION) Anatomical Region Laterality Modality Chest, Abdomen, Pelvis Computed Tomography 09/29/2023 4:52 PM SENIOR MANAGER ASSET PROTECTION Impressions 09/29/2023 7:37 PM SENIOR MANAGER ASSET PROTECTION Impression: 1.New age-indeterminate fractures of the right second, third, fourth anterior ribs, favored to be acute/subacute. Correlation with point tenderness. 2.Otherwise no evidence of osseous or visceral injury in the chest, abdomen or pelvis. > Dictated by Heath Wu MD, (radiology administrator). IJuwan have personally reviewed and interpreted this examination/study. > Interpreting Provider: Juwan Aceves on 09/29/2023 7:37 PM Narrative 09/29/2023 7:37 PM SENIOR MANAGER ASSET PROTECTION PROCEDURE: ??CT CHEST ABDOMEN PELVIS W CONT, DATE/TIME OF EXAM: ??09/29/2023 5:04 PM, LOCATION ??[facility] INDICATION: W19.XXXA: Fall, initial encounter ADDITIONAL [...] CONT, DATE/TIME OF EXAM:09/29/2023 5:04 PM, LOCATION [facility] INDICATION: W19.XXXA: Fall, initial encounter ADDITIONAL [...] pelvis. > Dictated by Heath Wu MD, (radiology administrator). I, Juwan Aceves have personally reviewed and interpreted this examination/study. > Interpreting Provider: Juwan Aceves on 09/29/2023 7:37 PM Alexis Atkins MD CT ORDERABLES * CT CERVICAL SPINE WO CONTRAST (09/29/2023 5:03 PM SENIOR MANAGER ASSET PROTECTION) Anatomical Region Laterality Modality Spine Computed Tomogra phy 09/29/2023 5:12 PM SENIOR MANAGER ASSET PROTECTION Impressions 09/29/2023 6:11 PM SENIOR MANAGER ASSET PROTECTION IMPRESSION: 1. Small acute extra-axial hematoma along [...] 09/29/2023 6:11 PM Narrative 09/29/2023 6:11 PM SENIOR MANAGER ASSET PROTECTION PROCEDURE: ??CT HEAD WO CONTRAST, CT LUMBAR [...] CT HEAD WO CONTRAST (09/29/2023 5:03 PM SENIOR MANAGER ASSET PROTECTION) Anatomical Region Laterality Modality Head Computed Tomogra phy 09/29/2023 5:12 PM SENIOR MANAGER ASSET PROTECTION Impressions 09/29/2023 6:11 PM SENIOR MANAGER ASSET PROTECTION IMPRESSION: 1. Small acute extra-axial hematoma along [...] 09/29/2023 6:11 PM Narrative 09/29/2023 6:11 PM SENIOR MANAGER ASSET PROTECTION PROCEDURE: ??CT HEAD WO CONTRAST, CT LUMBAR [...] before administration. $ Given 10/05/2023 10:43 AM SENIOR MANAGER ASSET PROTECTION 10 mL 0.9% NaCl injection 3 mL 3 mL, Intracatheter, EVERY 8 HOURS, First dose on Tue09/30/23 at 0045, Until Discontinued, Flush peripheral IV catheter with 3 mL of normal saline every 8 hours. $ Given 10/05/2023 5:52 AM SENIOR MANAGER ASSET PROTECTION 3 mL $ Given 10/04/2023 9:28 PM SENIOR MANAGER ASSET PROTECTION 3 mL $ Given 10/04/2023 1:24 PM SENIOR MANAGER ASSET PROTECTION 3 mL acetaminophen (Tylenol) tablet 500 mg [...] the MAR. $ Given 09/30/2023 8:00 AM SENIOR MANAGER ASSET PROTECTION 500 m g amLODIPine (Norvasc) tablet 10 mg 10 mg, Oral, AT BEDTIME, First dose (after last modification) on 10/03/23 at 2100, Until Discontinued $ Given 10/04/2023 9:10 PM SENIOR MANAGER ASSET PROTECTION 10 mg $ Given 10/03/2023 9:29 PM SENIOR MANAGER ASSET PROTECTION 10 mg amLODIPine (Norvasc) tablet 5 mg 5 mg, Oral, DAILY, First dose on 10/02/23 at 0900, Until Discontinued $ Given 10/02/2023 8:22 AM SENIOR MANAGER ASSET PROTECTION 5 mg amLODIPine (Norvasc) tablet 5 mg 5 mg, Oral, Once, 1 dose, On 10/02/23 at 1830 $ Given 10/02/2023 6:29 PM SENIOR MANAGER ASSET PROTECTION 5 mg busPIRone (Buspar) tablet 5 mg 5 mg, Oral, 3 TIMES DAILY, First dose on Tue09/30/23 at 0900, Until Discontinued $ Given 10/05/2023 2:05 PM SENIOR MANAGER ASSET PROTECTION 5 mg $ Given 10/05/2023 9:00 AM SENIOR MANAGER ASSET PROTECTION 5 mg $ Given 10/04/2023 9:09 PM SENIOR MANAGER ASSET PROTECTION 5 mg epoetin (Epogen; Procrit) injection 4,000 Units 4,000 Units, Intravenous, DIALYSIS EVERY TUE, MARLIN & SAT, First dose on 10/01/23 at 1700, Until Discontinued, Do not shake vial. Do not shake vial. Refrigerate $ Given 10/04/2023 12:59 PM SENIOR MANAGER ASSET PROTECTION 4,000 Units $ Given 10/01/2023 10:59 AM SENIOR MANAGER ASSET PROTECTION 4,000 Units escitalopram (Lexapro) tablet 5 mg 5 mg, Oral, DAILY, First dose on Tue09/30/23 at 0900, Until Discontinued $ Given 10/05/2023 9:00 AM SENIOR MANAGER ASSET PROTECTION 5 mg $ Given 10/04/2023 1:23 PM SENIOR MANAGER ASSET PROTECTION 5 mg $ Given 10/03/2023 8:50 AM SENIOR MANAGER ASSET PROTECTION 5 mg heparin injection 5,000 Units 5,000 Units, Subcutaneous, EVERY 8 HOURS, First dose on Tue09/30/23 at 0045, Until Discontinued $ Given 09/30/2023 12:14 AM SENIOR MANAGER ASSET PROTECTION 5,000 Units Abd Left Lower Quadrant heparin injection 5,000 Units 5,000 Units, Subcutaneous, EVERY 8 HOURS, First dose on Tue10/02/23 at 2200, Until Discontinued $ Given 10/05/2023 2:05 PM SENIOR MANAGER ASSET PROTECTION 5,000 Units Abd Left Lower Quadrant $ Given 10/05/2023 5:52 AM SENIOR MANAGER ASSET PROTECTION 5,000 Units A bd Left Lower Quadrant $ Given 10/04/2023 9:09 PM SENIOR MANAGER ASSET PROTECTION 5,000 Units R ight Leg hydrALAZINE (Apresoline) injection 10 mg 10 mg, Intravenous, EVERY 4 HOURS PRN, SBP greater than 160 mmHg, Starting on Tue10/02/23 at 1002, Until Tue10/05/23 at 1522 $ Given 10/04/2023 4:37 AM CS T 10 mg $ Given 10/02/2023 11:44 PM SENIOR MANAGER ASSET PROTECTION 10 mg $ Given 10/02/2023 6:08 PM SENIOR MANAGER ASSET PROTECTION 10 mg hydroCHLOROthiazide (Hydrodiuril) tablet 12.5 mg 12.5 mg, Oral, NOW, 1 dose, On Tue09/29/23 at 1800 $ Given 09/29/2023 6:15 PM SENIOR MANAGER ASSET PROTECTION 12.5 mg hydrOXYzine HCl (Atarax) tablet 10 mg 10 mg, Oral, EVERY 6 HOURS PRN, Itching, Anxiety, Starting on Tue10/04/23 at 1749, Until Tue10/05/23 at 1522 $ Given 10/04/2023 5:56 PM SENIOR MANAGER ASSET PROTECTION 10 mg iopamidol (Isovue 370) 76 % contrast Intravenous, CONTRAST ONCE, Starting on Tue09/29/23 at 1629, Until 10/01/23 at 1628 $ Given - Contrast 09/29/2023 4:32 PM SENIOR MANAGER ASSET PROTECTION 100 m L labetalol (Normodyne; Trandate) tablet 300 mg 300 mg, Oral, NOW, 1 dose, On Tue09/29/23 at 1800 $ Given 09/29/2023 6:15 PM SENIOR MANAGER ASSET PROTECTION 300 mg labetalol (Normodyne; Trandate) tablet 300 mg 300 mg, Oral, 2 TIMES DAILY, First dose on Tue09/30/23 at 0900, Until Discontinued $ Given 10/05/2023 8:59 AM SENIOR MANAGER ASSET PROTECTION 300 mg $ Given 10/04/2023 9:09 PM SENIOR MANAGER ASSET PROTECTION 300 mg $ Given 10/04/2023 1:23 PM SENIOR MANAGER ASSET PROTECTION 300 mg lisinopril (Prinivil; Zestril) tablet 20 mg 20 mg, Oral, NOW, 1 dose, On Marlin 09/29/23 at 1800 $ Given 09/29/2023 6:14 PM SENIOR MANAGER ASSET PROTECTION 20 mg losartan (Cozaar) tablet 100 mg 100 mg, Oral, DAILY, First dose (after last modification) on Tue10/04/23 at 0900, Until Discontinued $ Given 10/05/2023 9:00 AM SENIOR MANAGER ASSET PROTECTION 100 mg $ Given 10/04/2023 1:22 PM SENIOR MANAGER ASSET PROTECTION 100 mg losartan (Cozaar) tablet 50 mg 50 mg, Oral, DAILY, First dose on Tue09/30/23 at 0945, Until Discontinued $ Given 10/03/2023 8:49 AM SENIOR MANAGER ASSET PROTECTION 50 mg $ Given 10/02/2023 8:10 AM SENIOR MANAGER ASSET PROTECTION 50 mg $ Given 10/01/2023 2:06 PM SENIOR MANAGER ASSET PROTECTION 50 mg memantine (Namenda) tablet 5 mg 5 mg, Oral, 2 TIMES DAILY, First dose on Tue09/30/23 at 0900, Until Discontinued $ Given 10/05/2023 9:00 AM SENIOR MANAGER ASSET PROTECTION 5 mg $ Given 10/04/2023 9:09 PM SENIOR MANAGER ASSET PROTECTION 5 mg $ Given 10/04/2023 1:23 PM SENIOR MANAGER ASSET PROTECTION 5 mg polyethylene glycol 3350 (Miralax) packet [...] DRINK SLOWLY $ Given 09/30/2023 5:42 AM SENIOR MANAGER ASSET PROTECTION 40 mEq potassium chloride ER (Klor-Con M) tablet 20 mEq 20 mEq, Oral, ONCE, 1 dose, On Tue10/03/23 at 0900, Do not crush or chew. $ Given 10/03/2023 8:49 AM SENIOR MANAGER ASSET PROTECTION 20 mEq senna-docusate (Senokot-S) tablet 1 tablet 1 tablet, Oral, DAILY PRN, Constipation, Starting on 10/01/23 at 1135, Until Tue10/05/23 at 1522, Second line for constipation $ Given 10/02/2023 1:48 PM SENIOR MANAGER ASSET PROTECTION 1 tablet sodium phosphate 20 mmol in dextrose 5 % 256.7 mL bolus 20 mmol, at 42.78 mL/hr, Administer over 6 Hours, Intravenous, ONCE, 1 dose, On 10/01/23 at 0830 $ New Bag/Syringe 10/01/2023 9:10 AM SENIOR MANAGER ASSET PROTECTION 20 mmol 42.78 mL/hr sulfur hexafluoride microsphere (Lumason) 60.7-25 MG injection 2 mL 2 mL, Intravenous, INTRA-PROCEDURE MULTIPLE, Starting on Tue10/05/23 at 1041, Until Tue10/05/23 at 1522, Shake well before using. $ Given 10/05/2023 10:42 AM SENIOR MANAGER ASSET PROTECTION 2 mL documented in this encounter Active and Recently Administered Medications Times are shown in SENIOR MANAGER ASSET PROTECTION. Scheduled Medication Order 10/03/2023 10/04/2023 10/05/2023 0.9% [...] patency. documented in this encounter Care Teams Puppy Sitter Relationship Specialty Start Date End Date Yanira Meyers, POLE CUTTER-PRIMER BOXER [address] [place] [phone] PCP - General Nurse Practitioner Family 06/15/23 documented as of this encounter
--- OUTSIDE RECORDS SUMMARY | 2024-10-16 00:28 | XMS_ITS | Encounter Summary ---
Author Organization [facility] Address [address] [place] [address] Care Team Providers Care Product Designer Name Role Phone Diana Mao MD Primary Care Provider [phone] Reason for Visit * Auth/Cert (Routine) Specialty Diagnoses / Procedures Referred By Abena torrez Referred To Contact Procedures INSERTION GRAFT ARTERIO-VENOUS (AV) ARM Referral ID Status Reason Start Date Expiration Date Visits Re quested Visits Authorized [id number] 1 1 Encounter Details Date Type Department Care Team (Latest Contact Info) Description 04/11/2023 7:08 AM CDT - 04/11/2023 8:30 AM CDT Hospital Encounter [facility] - Perioperative Surgery [address] [place] [address] [place] [address] [facility] [address] [place] [address] Surgery General Discharge Disposition: Home [...] in this encounter H&P Notes * Leland hTompson MD - 04/08/2023 7:17 AM CDT Surgical H&P Chief Complaint End-stage renal disease with need for long-term dialysis access ?? History and Physical: Kirsty Rea is a 82 year old female. The patient is referred by her platinumsmith for a catheter that was not working well. She has never had evaluation for access in the past. PCP is Diana Mao MD. She is right handed. She has poor peripheral veins. ?? Past Medical & Surgical History Past Medical History: Diagnosis Date ??? CKD (chronic kidney disease) stage 3, GFR 30-59 ml/min ([facility]) ? proteinuria; Specification Consultant = Dr. Reyes ??? HTN (hypertension), benign ? Hyperparathyroid bone disease ([facility]/HCC) ? s/p surgery ??? Morphea ? Osteopenia [...] st Contact Info) Description 12/11/2024 10:30 AM ACADEMIC INTERVENTIONIST Appointment [facility] Vascular Services [address] [facility] [address] [place] [address] Jarett Reinoso MD [address] [place], [place] [id number] Christine Benitez MD [address] [place] [phone] Keyshawn Krueger MD [address] [place], [place] [address] Armando Ferro, [address] [address] documented as of this encounter [...] - 107 mmol/L 04/11/2023 8:09 AM CDT [facility] CO2 27 23 - 31 mmol/L 04/11/2023 8:09 AM CDT [facility] Calcium 10.5(H) 8.4 - 10.4 mg/dL 04/11/2023 8:09 AM CDT [facility] Anion Gap 9 8 - 18 mmol/L 04/11/2023 8:09 AM CDT [facility] BUN 43(H) 9.8 - 20.1 mg/dL 04/11/2023 8:09 AM CDT [facility] Creatinine 4.77(H) 0.57 - 1.11 mg/dL 04/11/2023 8:09 AM T [facility] eGFR by CKD-EPI 9(L) >=90 mL/min/1.7 3 m2 04/11/2023 8:09 AM T [facility] Blood BLOOD SPECIMEN / Unknown Venipuncture / Unknown 04/11/2023 7:36 AM CDT 04/11/2023 7:51 AM CDT Zohra Peng DO LAB - CHEMISTRY PATRICIA CASIANO Performing Organization Address City/State/[facility] Co de Phone Number [facility] [address] [place] [phone] documented in this encounter Visit Diagnoses Diagnosis [...] Pre-op documented in this encounter Care Teams Product Designer Relationship Specialty Start Date End Date Diana Mao MD [address] [place] [address] PCP - General 08/05/17 06/14/23 documented as of this encounter
--- OUTSIDE RECORDS SUMMARY | 2024-10-16 00:28 | XMS_ITS | Encounter Summary ---
Author Organization [facility] Address [address] [facility] [place] [address] Care Team Providers Care Tray Room Worker Name Role Phone Ephraim Meyersysthector Guillory BOOKING MANAGER-CONTINUITY EDITOR Primary Care Provid er Reason for Visit * Auth/Cert (Routine) Specialty Diagnoses / Procedures Referred By Abena torrez Referred To Contact Procedures INSERTION GRAFT ARTERIO-VENOUS (AV) ARM Referral ID Status Reason Start Date Expiration Date Visits Re quested Visits Authorized [id number] 1 1 Encounter Details Date Type Department Care Team (Late st Contact Info) Description 06/15/2023 12:00 PM CDT - 06/15/2023 1:20 PM CDT Surgery [facility] - Perioperative Surgery [address] [place] [address] [place] [address] [facility] [address] [place] [phone] LEFT UPPER ARM ARTERIOVENOUS GRAFT Surgery Details Date/Time Status Location OR Service Patient Class Case Class Case Type Trauma Case? 06/15/2023 12:00 PM Posted [facility] OR OR 06 General Surgery Day [...] mouth once daily 03/29/2023 10/05/2023 HYDROcodone-acetamin ophen ([place]) 5-325 MG tabletIndications:ES RD (end stage renal [...] 4:58 PM CDT Spoke to Shayy at [facility]. Pt to be transported by daughter [...] female. The patient is referred by her zipper repairer for a catheter that was not working well. She has never had evaluation for access in the past. PCP is Diana Mao MD. She is right handed. She has poor peripheral veins there difficult to get IVs. ?? Past Medical & Surgical History Past Medical History: Diagnosis Date ??? CKD (chronic kidney disease) stage 3, GFR 30-59 ml/min (CMS/HCC) ? proteinuria; Tube Bender = Dr. Reyes ??? HTN (hypertension), benign [...] Thompson MD - 06/15/2023 3:30 PM CDT [facility] OPERATIVE REPORT PATIENT: : YOLANDE REA MR#: [id number] ADMIT DATE: 06/15/2023 CSN: [id number] DATE OF SURGERY: 06/15/2023 : 1940 PHYSICIAN: Leland Thompson MD ROOM: [facility] PREOPERATIVE DIAGNOSIS: End-stage renal disease. POSTOPERATIVE DIAGNOSIS: End-stage renal disease. PROCEDURE PERFORMED: Left upper extremity arterial venous graft placement, brachial artery to axillary vein. SURGEON: Leland Thompson M.D., FACS. PUBLIC HEALTH DOCTOR: TWAN. ESTIMATED BLOOD LOSS: 50 cc. COMPLICATIONS: [...] A 4 mm to 7 mm stretch [place] graft was then tunneled using the Ag[place]-Wick [...] satisfactory condition. Leland Thompson MD JSG/MODL #: [id number] * Brief Op Note - Leland Thompson MD - 06/15/2023 12:27 PM CDT Brief Post Operative Note Preoperative Diagnosis: ESRD Postoperative Diagnosis: ESRD Procedure: Left upper arm av graft Surgeon: Leland Thompson MD Test Conductor: TWAN Type of anesthesia: Regional Complications: none EBL: 50 cc Drains: none documented in this encounter Plan of Treatment Upcoming Encounters Date Type Department Care Team (Late st Contact Info) Description 12/11/2024 10:30 AM CARTON LINER Appointment [facility] Vascular Services [address] [facility] [address] [place] [address] Jarett Reinoso MD [address] [place], [place] [phone] Christine Benitez MD [address] [place] [address] Keyshawn Krueger MD [address] [place] [address] Armando Ferro, [address] [address] documented as of this encounter Procedures Procedure Name Priority Date/Time Associated Diagnosis Comments NV INSERT CANNULA,ART-GEORGINA,EXT JARED 06/15/2023 12:00 PM CDT [...] - 29 mmol/L 06/15/2023 11:10 AM CDT [facility] Calcium 10.6(H) 8.4 - 10.4 mg/dL 06/15/2023 11:10 AM CDT [facility] Anion Gap 12 6 - 16 mmol/L 06/15/2023 11:10 AM CDT [facility] BUN 28(H) 7 - 26 mg/dL 06/15/2023 11:10 AM CDT [facility] Creatinine 3.99(H) 0.57 - 1.11 mg/dL 06/15/2023 11:10 AM CDT [facility] eGFR by CKD-EPI 11(L) >=90 mL/min/1.7 3 m2 06/15/2023 11:10 AM CDT [facility] Blood BLOOD SPECIMEN / Unknown Venipuncture / Unknown 06/15/2023 10:46 AM CDT 06/15/2023 10:55 AM CDT Zohra Peng DO LAB - CHEMISTRY [facility] Organization Address City/State/[facility] Co de Phone Number [facility] [address] [place] [address] documented in this encounter Visit [...] New Bag/Syri nge - Provider: Josie Sylvester APRN-LAY BROTHER)[phone] (Stopped - Provider: Vinnie Mares RN) PRN [...] Pre-op documented in this encounter Care Teams Tray Room Worker Relationship Specialty Start Date End Date Yanira Meyers, BOOKING MANAGER-CONTINUITY EDITOR [address] [place] [phone] PCP - General Nurse Practitioner Family 06/15/23 documented as of this encounter
--- OUTSIDE RECORDS SUMMARY | 2024-10-16 00:28 | XMS_ITS | Encounter Summary ---
Author Organization [facility] Address [address] [facility] [place] [address] Care Team Providers Care Signaling Design Engineer Name Role Phone ErikmicheleYanira MEDIA RECONCILIATION SPECIALIST-HIDE DYER Primary Care Provid er Reason for Referral * Radiology Services (Routine) - Closed Specialty Diagnoses / Procedures Referred By Contac t Referred To Contact Diagnoses ESRD (end stage renal disease) (HCC) Procedures IR CENTRAL LINE REMOVAL Christine Benitez MD [address] [place] [address] Referral ID Status Reason Start Date Expiration Date Visits Re quested Visits Authorized [id number] Closed 08/03/2023 08/02/2024 1 1 * Radiology Services (Routine) - Closed Specialty Diagnoses / Procedures Referred By Contac t Referred To Contact Diagnoses ESRD (end stage renal disease) (HCC) Procedures IR ANGIO AV SHUNT IMAGING Christine Benitez MD [address] [place] [address] Referral ID Status Reason Start Date Expiration Date Visits Re quested Visits Authorized [id number] Closed 08/03/2023 08/02/2024 1 1 * Radiology Services (Routine) - Closed Specialty Diagnoses / Procedures Referred By Contac t Referred To Contact Diagnoses ESRD (end stage renal disease) (HCC) Procedures IR CENTRAL LINE REMOVAL Christine Benitez MD [address] [place] [phone] Referral ID Status Reason Start Date Expiration Date Visits Re quested Visits Authorized [id number] Closed 08/03/2023 08/02/2024 1 1 * Radiology Services (Routine) - Closed Specialty Diagnoses / Procedures Referred By Abena torrez Referred To Contact Diagnoses ESRD (end stage renal disease) (HCC) Procedures IR ANGIO AV SHUNT IMAGING Christine Benitez MD [address] [place] [phone] Referral ID Status Reason Start Date Expiration Date Visits Re quested Visits Authorized [id number] Closed 08/03/2023 08/02/2024 1 1 Reason for Visit * Radiology Services (Routine) - Closed Specialty Diagnoses / Procedures Referred By Abena torrez Referred To Contact Diagnostic Ultrasound / Vascular Lab Diagnoses End stage renal disease (HCC) Procedures OK INTRO CATH DIALYSIS CIRC RAD S AND I OK REMV TUNNLD CVC W/O SUBQ PORT/PUMP Christine Benitez MD [address] [place] [phone] [facility] [address] [place] [address], [address] [address] Referral ID Status Reason Start Date Expiration Date Visits Re quested Visits Authorized [id number] Closed 08/03/2023 08/02/2024 5 5 Encounter Details Date Type Department Care Team (Latest Contact Info) Description 08/03/2023 9:54 AM CDT - 08/03/2023 11:59 PM CDT Hospital Encounter [facility] Health Vascular Services [address] [place] [address], [address] [place] [address] Christine Benitez MD [address] [place] [address] Discharge Disposition: Home or Self [...] kidney disease) stage 3, GFR 30-59 ml/min ([facility]) proteinuria; Rectifying Attendant = Dr. Reyes ??? CVA (cerebral vascular accident) ([facility]) 08/14/2022 ??? Dementia without behavioral disturbance ([facility]) mild ??? ESRD on dialysis ([facility]) [facility], 07/06/23 ??? Gout ??? HTN (hypertension), benign ??? Hyperparathyroid bone disease ([facility]) s/p surgery ??? [...] structures demonstrated no significant abnormality. A 7 Japanese sheath was introduced over a Social Recruiting wire and angioplasty was performed with a [...] st Contact Info) Description 12/11/2024 10:30 AM CRIMINAL INVESTIGATIVE AGENT Appointment [facility] Vascular Services [address] [facility] [address] [place] [address] Jarett Reinoso MD [address] [place], [place] [phone] Christine Benitez MD [address] [place] [phone] Keyshawn Krueger MD [address] [place], [place] [id number] [place] [address] [phone] documented as of this encounter Procedures Procedure [...] demonstrated no significant abnormality. ?? A 7 Japanese sheath was introduced over a Social Recruiting wire and angioplasty was performed with a 7 mm x 4 cm and subsequently an 8 mm x 4 cm iSTARquest balloon. ??Reflux injection during balloon inflation demonstrated [...] demonstrated no significant abnormality. ?? A 7 Japanese sheath was introduced over a Social Recruiting wire and angioplasty was performed with a [...] mL documented in this encounter Care Teams Signaling Design Engineer Relationship Specialty Start Date End Date Yanira Meyers, MEDIA RECONCILIATION SPECIALIST-HIDE DYER [address] [place] [address] PCP - General Nurse Practitioner Family 06/15/23 documented as of this encounter
--- OUTSIDE RECORDS SUMMARY | 2024-10-16 00:28 | XMS_ITS | Encounter Summary ---
Author Organization [facility] Address [address] [place] [address] Care Team Providers Care Radon Inspector Name Role Phone Diana Mao MD Primary Care Provider [phone] Encounter Details Date Type Department Care Team (Late st Contact Info) Description 03/31/2023 2:30 PM CDT Office Visit [facility] - Surgery [address] [facility], [address] [place] [phone] [place] [address] [facility] [address] [place] [phone] ESRD (end stage renal disease) (HCC) [...] time. Surgeon: Place: [] Freeman Hogan M.D. [x][facility]:[address] [place] [address]. Patient Registration [] Momo Potter M.D. [] [facility] [x] Leland Thompson M.D. [facility]. [] Hayley Willett M.D. [] [facility] [] Salvatore Guzman M.D First Floor Main Entrance [] Vilma aGrcia D.O. [] Andrew Rothman M.D. [] Pawan [...] female. The patient is referred by her language instructor for a catheter that was not working well. She has never had evaluation for access in the past. PCP is Diana Mao MD. She is right handed. She has poor peripheral veins there difficult to get IVs. Past Medical History: Diagnosis Date ??? CKD (chronic kidney disease) stage 3, GFR 30-59 ml/min ([facility]) proteinuria; Out Of Town Collection Clerk = Dr. Reyes ??? HTN (hypertension), benign ??? Hyperparathyroid bone disease ([facility]) s/p surgery ??? Morphea ??? Osteopenia Past Surgical History: Procedure Laterality Date ??? Appendectomy ??? Breast Reduction ??? Cholecystectomy, Laparoscopic ??? HX FRACTURE TX ??? OOPHORECTOMY 1971 ??? Parathyroidectomy 1999 Allergies Allergen Reactions ??? Ramipril Other Other reaction(s): Other (See Comments) Kidney Damage Kidney Damage No outpatient medications have been marked as taking for the 03/31/23 encounter (Appointment) with Leland Thompson MD. Social History Tobacco Use ??? Smoking [...] st Contact Info) Description 12/11/2024 10:30 AM AVIATION TACTICAL READINESS OFFICER Appointment [facility] Vascular Services [address] [facility] [address] [place] [address] Jarett Reinoso MD [address] [place] [address] Christine Benitez MD [address] [place] [address] Keyshawn Krueger MD [address] [place] [address] Armando Ferro, [address] [phone] documented as of this encounter Visit Diagnoses Diagnosis ESRD (end stage renal disease) (HCC)- Primary End stage renal disease documented in this encounter Care Teams Radon Inspector Relationship Specialty [place] [address] [place] [address] PCP - General 08/05/17 06/14/23 documented as of this encounter
--- OUTSIDE RECORDS SUMMARY | 2024-10-16 00:28 | XMS_ITS | Encounter Summary ---
Author Organization [facility] Address [address] [place] [address] Care Team Providers Care Glycerine Plant Operator Name Role Phone MiraYanira Kahlil WEAPONS ENGINEER-POPULATION HEALTH COACH Primary Care Provid er Reason for Visit * Reason Comments Post-Op ALLY MERCADO Encounter Details Date Type Department Care Team (Late st Contact Info) Description 07/06/2023 9:30 AM CDT Office Visit [facility] - Surgery [id number] [place] [address], [address] [place] [phone] [place] [phone] [place] [phone] Postop check (Primary Dx) Social History [...] 3 sessions, she will contact the vascular [place] for tunneled dialysis catheter removal documented in this encounter Plan of Treatment Upcoming Encounters Date Type Department Care Team (Late st Contact Info) Description 12/11/2024 10:30 AM FINE GRADER Appointment [facility] Vascular Services [address] [facility], [address] [place] [address] Jarett Reinoso MD [address] [place], [place] [phone] Christine Benitez MD [address] [place] [address] Keyshawn Krueger MD [address] [place] [address] Armando Ferro, [address] [phone] documented as of this encounter Visit Diagnoses Diagnosis Postop check- Primary Follow-up examination, following unspecified surgery documented in this encounter Care Teams Glycerine Plant Operator Relationship Specialty Start Date End Date Yanira Meyers APRN-POPULATION HEALTH COACH [address] [place] [phone] PCP - General Nurse Practitioner Family 06/15/23 documented as of this encounter
--- OUTSIDE RECORDS SUMMARY | 2024-10-16 00:28 | XMS_ITS | Encounter Summary ---
Author Organization [facility] Address [address] [facility] [place] [address] Care Team Providers Care Mri Technician Name Role Phone Diana Mao MD Primary Care Provider [phone] Reason for Visit * Radiology Services (Routine) - Closed Specialty Diagnoses / Procedures Referred By Abena torrez Referred To Contact Diagnoses ESRD (end stage renal disease) (HCC) Procedures VAS BILAT MAPPING [place] [address] [facility] [address] [place] [address] Referral ID Status Reason Start Date Expiration Date Visits Re quested Visits Authorized [id number] Closed 03/31/2023 03/30/2024 1 1 Encounter Details Date Type Department Care Team (Latest Contact Info) Description 03/31/2023 8:30 AM CDT - 03/31/2023 2:00 PM T Hospital Encounter [facility] Health Vascular Services [address] [facility], [address] [place] [address] [place] [address] [facility] [address] [place] [address] Discharge Disposition: Home or Self [...] eyes once daily 2.5 mL 12/28/2021 04/07/2023 [place]-3 Fatty Acids (FISH OIL) 1200 MG 3 [...] st Contact Info) Description 12/11/2024 10:30 AM RADIOLOGY SUPERVISOR Appointment [facility] Vascular Services [address] [facility], [address] [place] [address] Jarett Reinoso MD [address] [place], [place] [address] Christine Benitez MD [address] [place] [phone] Keyshawn Krueger MD [address] [place] [address] [place] [address] [phone] documented as of this encounter [...] Procedure Note Andrew Rothman MD - 04/02/2023 [facility] [address] [facility], [address] [place] [address] Vessel Mapping for Hemodialysis Report Pat.Name: YOLANDE REA.ID: [id number] St.Date: 03/31/2023 Refer.MD: RON BLACKWELL Exam Time: 2:47:00 PM Study Type:Vessel Mapping for Hemodialysis Age: 2 1940,82Y Sex: FEMALE Sonogrphr: Agustín Valentin RVT Pat. Stat.:Outpatient CPT - 4: 32255 Reason for Study: End Stage Renal Disease Procedures: Vessel Mapping for Hemodialysis Race: 1 Visit ID: [id number] ++++++++++++++++++++++++++++++++++++ SUMMARY: ++++++++++++++++++++++++++++++++++++ Left - Cephalic vein [...] disease documented in this encounter Care Teams Mri Technician Relationship Specialty Start Date End Date Diana Mao MD [address] [place] [address] PCP - General 08/05/17 06/14/23 documented as of this encounter
--- OUTSIDE RECORDS SUMMARY | 2024-10-16 00:28 | XMS_ITS | Encounter Summary ---
Author Organization [facility] Address [address] [facility] [place] [address] Care Team Providers Care Warp Doffer Name Role Phone Diana Mao MD Primary Care Provider Encounter Details Date Type Department Care Team (Late st Contact Info) Description 04/11/2023 9:05 AM CDT Anesthesia Event [facility] - Perioperative Surgery [address] [place], [place] [phone] Freeman Overton MD [address] [facility] [address] [place], [place] [phone] Anesthesia Record Procedure Summary Procedure Name Responsible [...] procedural Anesthetic Plan was discussed with the DRIVER TRAINEE and anesthesiologist. Overall additional findings/comments: Discussed risks [...] her come inTuesday. I have called her director regulatory agency, Dr. Leticia Reyes (currently on vacation), and [...] 08/23/2022 Priority: Not Prioritized ??? Aspiration pneumonia ([facility]) 08/23/2022 Priority: Not Prioritized ??? Dysphagia 08/23/2022 Priority: Not Prioritized ??? Hyponatremia 08/23/2022 Priority: Not Prioritized ??? Elevated troponin 08/23/2022 Priority: Not Prioritized ??? Hypoalbuminemia 08/23/2022 Priority: Not Prioritized ??? High anion gap metabolic acidosis 08/23/2022 Priority: Not Prioritized ??? Normocytic anemia 08/23/2022 Priority: Not Prioritized ??? Acute decompensated heart failure ([facility]) 08/23/2022 Priority: Not Prioritized ??? Respiratory failure with hypoxia ([facility]) 08/23/2022 Priority: Not Prioritized ??? Hypertensive emergency 08/23/2022 Priority: Not Prioritized ??? Intracranial hemorrhage, nontraumatic ([facility]) 08/15/2022 Priority: Not Prioritized ??? Cervicalgia 04/06/2019 [...] Not Prioritized ??? Acute renal failure (ARF) ([facility]) 07/14/2015 Priority: Not Prioritized ??? [...] kidney disease) stage 3, GFR 30-59 ml/min ([facility]) proteinuria; Battery Installer = Dr. Reyes ??? CVA (cerebral vascular accident) ([facility]) 08/14/2022 ??? ESRD on dialysis ([facility]) ??? HTN (hypertension), benign ??? Hyperparathyroid bone disease ([facility]) s/p surgery ??? Morphea ??? Osteopenia Surgical History: Past Surgical History: Procedure Laterality Date ??? Appendectomy ??? Breast Reduction ??? Cholecystectomy, Laparoscopic ??? HX FRACTURE TX ??? OOPHORECTOMY 1972 ??? Parathyroidectomy 1999 BOX LOADER Status: No LMP recorded. Patient is postmenopausal. [...] st Contact Info) Description 12/11/2024 10:30 AM EVENT OPERATIONS MANAGER Appointment [facility] Vascular Services [address] [facility] [address] [place] [address] Jarett Reinoso MD [address] [place], [place] [phone] Christine Benitez MD [address] [place] [phone] Keyshawn Krueger MD [address] [place], [place] [phone] Armando Ferro, [address] [phone] documented as of this encounter Visit Diagnoses Not on filedocumented in this encounter Care Teams Warp Doffer Relationship Specialty Start Date End Date Diana Mao MD [address] [place] [address] PCP - General 08/05/17 06/14/23 documented as of this encounter
--- OUTSIDE RECORDS SUMMARY | 2024-10-16 00:29 | XMS_ITS | Encounter Summary ---
Author Organization [facility] Address [address] [place] [address] Care Team Providers Care Embossing Press Operator Apprentice Name Role Phone Diana Mao MD Primary Care Provider [phone] Reason for Visit * Auth/Cert Specialty Diagnoses / Procedures Referred By Contac t Referred To Contact Diagnoses spontan head bleed Referral ID Status Reason Start Date Expiration Date Visits Re quested Visits Authorized [id number] 1 1 Encounter Details Date Type Department Care Team (Latest Contact Info) Description 08/15/2022 3:01 AM CDT - 09/09/2022 6:34 PM SPRING COILER HAND Hospital Encounter [facility] [address] [place] [address] Héctor Silva MD [address] [place] [id number] Ashvin Barber MD [address] DIV OF PULMONARY/[place] [address] Jero Orozco MD [address] [place] [address] Almaz Patel MD [address] [facility] [address] [place] [address] Lisbeth Potter MD [address] DIV [place] [address] Jessica Garcia MD [address] [place] [address] Neurology Discharge Disposition: Custodial Facility Social History Tobacco Use Types Packs/Day [...] Comments Blood Pressure 149/55 09/09/2022 5:03 PM SPRING COILER HAND Pulse 87 09/09/2022 4:39 PM SPRING COILER HAND Temperature 36.9 ??C (98.4 ??F) 09/09/2022 4:39 PM CS T Respiratory Rate 18 09/09/2022 4:39 PM SPRING COILER HAND Oxygen Saturation 96% 09/09/2022 4:39 PM SPRING COILER HAND Inhaled Oxygen Concentration 40% 08/31/2022 7 :36 PM CDT Weight 73.5 kg (162 lb) 09/06/2022 4:00 AM SPRING COILER HAND Height 172.7 cm (5' 7.99 ) 08/23/2022 [...] Physician Discharge Summary Patient ID: Kirsty Rea [id number] 81 year old 1940 Admit date: 08/15/2022 Discharge date: 09/09/2022 Admitting Physician: Jsoé Garcia MD Discharge Physician: Jessica Banks MD [...] presented with generalized weakness and n/v to [facility] on 08/14, 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 Neurosurgery and Neurology was on board, no surgical intervention was needed. ??Course was complicated by hypertensive emergency requiring ICU transfer and worsening CKD with acute hypoxic respiratory failure requiring iHD initiation. Pt is transferred to [facility] on 09/08/2022. ??Patient [...] 1-2 weeks, We already communicated with the scheduler maintenance If any emergency please come to the [...] needed for Shortness of Breath or Wheezing Jessiac Banks MD amLODIPine 10 MG tablet Commonly [...] Signed: Jessica Banks MD 09/09/2022 4:05 PM NG COILER HAND documented in this encounter Discharge Instructions * Discharge Instructions* Jessica Garcia MD - 09/09/2022 2:18 PM SPRING COILER HAND please take the medications regularly Follow PCP, nephrology, Neurology in 1-2 weeks, We already communicated with the scheduler maintenance If any emergency please come to the ED. NG COILER HAND documented in this encounter Medications at Time [...] eyes once daily 2.5 mL 12/28/2021 04/07/2023 Holman-3 Fatty Acids (FISH OIL) 1200 MG oxybutynin [...] Care: Actual level of care at discharge: Detention - Skilled Facility Facility Name: (include name of person confirming admission): Actual discharge provider: [facility] (formerly [facility] and [facility]) [place] Made Aware of Special Needs (if applicable): Yes RN Call Report to:[phone] Fax D/C Orders to:[phone] Transportation (company and number): [employer] [phone] Certificate of Medical Necessity rationale: Yes Date/time of transfer: 09/09/2022 @ 4:30PM Accepting and contact #: Dr. Perez Room 504 Completed and Signed [id number] (if applicable): Family/Other Notified of Transfer (name/phone): Daughter notified [phone] Authorization Skilled Care: Authorization for Transportation: Verified Qualifying Stay(Skilled Only): YES Comments: Name/Phone number: NIMO Tang [phone] NG COILER HAND * Yajaira Hope PT - 09/09/2022 2:01 PM CST [facility] Department of Physical Medicine & Rehabilitation Progress Note Patient: Kirsty Rea [facility] Record Number: [id number] Date of : 1940 Age: [age] year old 09/09/22 1400 Missed Visit Missed Visit Procedure Off Floor NG COILER HAND * Loly Aleman MD - 09/09/2022 1:00 [...] Microbiology: Reviewed in Epic Imaging: Reviewed in [facility] Assessment and Plan: 81 F h/o HTN, [...] DC planning: Pt follows Dr. Reyes in [place], family wants pt to be in [facility]. ?? Patient was seen and discussed with attending physician, Dr. Philomena Aleman MD Nephrology Fellow #[phone] 09/09/2022 1:00 PM NG COILER HAND Associated attestation - Srini Quach MD - 09/09/2022 2:22 PM SPRING COILER HAND Nephrology Attending Physician I have seen and examined the patient with house-staff on round. I agree with the house-staff note. Please also see my dialysis note from today. Srini Quach MD Division of Nephrology * Michelle Adkins RN - 09/09/2022 12:03 PM CST Case Management Progress Note Anticipated level of care at discharge: Home, Acute Rehab Facility, Detention - Skilled Facility Discharge Plan: DC to [...] Transportation: Name: Michelle Adkins RN Phone: [phone] NG COILER HAND * Chrissie Johns - 09/09/2022 11:52 AM CST Images from the original note were not included. Kidney Navigator Note Update Following for outpatient dialysis needs. Plan for pt to discharge to SNF today. HD clinic can start pt 09/10/22 for treatments. Left voice message for daughter for call back. Will continue to follow. Chrissie Johns Dialysis Navigator [facility] P: [phone] [facility]: [phone] UPDATE:(3:41pm) Pt's daughter's (Neftaly) have been informed of discharge today to SNF andstart of 09/10 at HD clinic. Details of HD schedule given to Agnes who will be the care worker to pt. Clinic has requested to have Agnes present at first day of treatment for paper work and to bring insurance card. Agnes is agreeable. NG COILER HAND * Kerrie Thomson RN - 09/09/2022 11:49 [...] by Kerrie Thomson RN Outcome: Progressing Problem: Aspiration Precautions Goal: [...] 1148 by Kerrie Thomson RN Outcome: Progressing NG COILER HAND * Petar Bah RN - 09/09/2022 11:45 [...] infections are decreased or avoided Outcome: Progressing NG COILER HAND * Argenis Saunders COTA - 09/09/2022 10:47 AM CST [facility] Department of Physical Medicine & Rehabilitation Progress Note Patient: Kirsty Rea [facility] Record Number: [id number] Date of : 1940 Age: [age] year old 09/09/22 1047 Missed Visit Patient off the floor Dialysis Will continue to follow up as schedule allows. NG COILER HAND * Petar Bah RN - 09/09/2022 10:06 [...] on Incapacitated Nurse: Education to be given NG COILER HAND * Dmitriy Mari MSW - 09/09/2022 9:50 AM CST Images from the original note were not included. [place] Transfer Report Anticipated Anticipated level of care at discharge: Home, Acute Rehab Facility, Detention - Skilled Facility Overview:Pt received insurance authorization from [facility] 1. Call Chu ([phone]) to received the d/c information. 2. Pt will need transportation scheduled and family updated 3.Will need Packet Completed Contacts/phone:Stacy Sheppard [phone] Referrals initiated: Continued Care and Services - Admitted Since 08/15/2022 Destination Service Provider Request Status Selected Services Address Phone Fax Patient Preferred [facility] Considering Need insurance authorization [id number] [address], [facility] [address] [phone] -- Internal Comment last updated by Chdii Martins 08/31/2022 1008 Left VM for [facility] (Liaison) [facility] Considering N/A [address], [facility] [address] [phone] -- Internal Comment last updated by Chidi Martins 08/31/2022 1000 Spoke with Petar [phone] Facility can accept and transport Pt to [facility] Pending - Request Sent N/A [address] [address] [phone] -- Internal Comment last updated by Dmitriy Mari MSW 09/08/2022 1047 Sho reviewing [facility] ([facility] and [facility])Pending - Request Sent N/A [address] [facility] [address] -- Current Capacity last updated by Maria L Del Rosario on 06/10/2022 1047 119 Internal Comment last updated by Dmitriy Mari MSW 09/08/2022 1032 Chu, reviewing pt [facility] Pending - Request Sent N/A [address] [facility] [address] -- Internal Comment last updated by Dmitriy Mari MSW 09/08/2022 1046 Britt, reviewing pt [facility] Declined Facility cannot provide for patient's needs, Facility unable to provide dialysis services N/A [address] [facility] [address] [facility] Declined Facility cannot provide for patient's needs, Unable to provide dialysis N/A [address] [facility] [address] [phone] -- [facility] Declined Facility cannot provide for patient's needs N/A [address] [place] [address] [phone] -- [facility] (formerly SNF) Declined Facility cannot provide for patient's needs [place] [address] [facility] [address] [phone] -- Internal Comment last updated by Chidi Martins 08/31/2022 1442 Paul [phone] called; facility unable to accept [facility] Declined Facility full N/A [address] [place] [address] -- Internal Comment last updated by Chidi Martins 08/31/2022 1441 Rec'd call from Marisa; facility does not have bed availability Dialysis/Infusion Service Provider Request Status Selected Services Address Phone Fax Patient Preferred [facility] Pending - Request Sent N/A [address] [place] [address] -- Name: NIMO Delatorre Phone: [phone] NG COILER HAND * Nimco Davila RN - 09/08/2022 10:12 [...] to allow for safe mobility Outcome: Progressing NG COILER HAND * Johny Mera, GERA - 09/08/2022 7:13 PM CST Patient arrived to the unit, via transport accompanied by family she was oriented to the unit/room no issues at this time answering questions oriented x3 NG COILER HAND * Lisbeth Potter MD - 09/08/2022 6:23 PM CST [facility] HOSPITALIST PROGRESS NOTE Patient: Kirsty Rea Admit date: 08/15/2022 Hospital day: 24 HOSPITAL COURSE: Kirsty Rea is a 81 year old female with PMH of HTN, CKD3, morphea who presented with generalized weakness and n/v to [facility] on 08/14, 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 #pontine ICH - seen by [...] MD General Internal Medicine 09/08/2022 6:24 PM NG COILER HAND * Loly Aleman MD - 09/08/2022 12:27 [...] INR 0.9 1.0 0.9 Microbiology: Reviewed in [facility] Imaging: Reviewed in [facility] Assessment and Plan: 81 F h/o HTN, [...] DC planning: Pt follows Dr. Reyes in [place], family wants pt to be in [facility]. ?? Patient was seen and discussed with attending physician, Dr. Philomena Aleman MD Nephrology Fellow #[phone] 09/08/2022 12:27 PM NG COILER HAND Associated attestation - Srini Quach MD - 09/08/2022 3:59 PM SPRING COILER HAND Nephrology Attending Physician I have seen and [...] MD Division of Nephrology * Kamaljit Dmitriy, SHOE REPAIRER - 09/08/2022 9:15 AM CST Images from the original note were not included. New Facility Referral Follow-Up Chu from [facility] ([phone]) is following the pt and can accept. Insuranceauthorization is submitted. SW updated family and will continue to follow. Level of Care (SNF/Medicaid NH/Rehab/Mcc Care/LTACH): ARU vs SNF SW received call from [facility] that they received the fast appeal. Faxed over information ( ) and phone number . Reference #[id number]. Could take up to 72 hrs for decision. SW spoke with pt's daughter Stacy Sheppard [phone] and family is agreeable to sending additional SNF refs. SW sent referrals and will follow up. Referrals initiated: Continued Care and Services - Admitted Since 08/15/2022 Destination Service Provider Request Status Selected Services Address Phone Fax Patient Preferred [facility] Considering Need insurance authorization [id number] [facility] [address] [phone] -- Internal Comment last updated by Chidi Martins 08/31/2022 1008 Left VM for [facility] (Liaison) [facility] Considering N/A [address] [facility] [address] [phone] -- Internal Comment last updated by Chidi Martins 08/31/2022 1000 Spoke with Petar [phone] Facility can accept and transport Pt to [facility] Pending - Request Sent N/A [address] [address] [phone] -- [place] [facility] ([facility] and [facility])Pending - Request Sent N/A [address] [facility] [address] -- Current Capacity last updated by Maria L Del Rosario on 06/10/2022 1047 [address] [facility] Pending - Request Sent N/A [address] [facility] [address] -- [facility] Declined Facility cannot provide for patient's needs, Facility unable to provide dialysis services N/A [address] [facility] [id number] [facility] Declined Facility cannot provide for patient's needs, Unable to provide dialysis N/A [address] [facility] [address] [phone] -- [facility] Declined Facility cannot provide for patient's needs N/A [facility] [address] [phone] -- [facility] (formerly SNF) Declined Facility cannot provide for patient's needs N/A [address] [facility] [address] [phone] -- Internal Comment last updated by Chidi Martins 08/31/2022 1442 Paul [phone] called; facility unable to accept [facility] Declined Facility full N/A [address] [place] [facility] [address] -- Internal Comment last updated by Chidi Martins 08/31/2022 1441 Rec'd call from Marisa; facility does not have bed availability Dialysis/Infusion Service Provider Request Status Selected Services Address Phone Fax Patient Preferred [facility] Pending - Request Sent N/A [address] [place] [phone] -- If Medicare-3 day qualifying stay verified: Yes monitoring facility responses Comments/changes: Name: NIMO Delatorre Phone: [phone] NG COILER HAND * Vanessa Blakely SLP - 09/08/2022 8:58 AM CST [facility] Department of Physical Medicine & Rehabilitation Progress Note Patient: Kirsty Rea [facility] Record Number: [id number] Date of : 1940 Age: [age] year old 09/08/22 0858 Missed Visit Missed Visit Pt with PT at time of visit this morning. SALES REPRESENTATIVE GROCERIES followed up with PT after her lunch trayhad been delivered but Pt declined PO trials given her reported lack of appetite and fatigue. Will plan to follow up again at a later date/time. Vanessa Barr M.S., CCC-SALES REPRESENTATIVE GROCERIES Speech Language Pathologist [phone] NG COILER HAND * Kaley Alarcon, PT - 09/08/2022 8:44 AM CST [facility] Physical Medicine and Rehabilitation Physical Therapy Progress Note Patient: Kirsty Rea [facility] Record Number: [id number] Date of : 1940 Age: [age] year [...] returning to independence. Modified Elizabeth: Current Modified [place] Score: 4 EDUCATION: While performing PT, Patient [...] ambulate??50??feet with minimal assist??and appropriate AD ?? Mcc Goal(s): Patient to discharge to appropriate next [...] on , with call light within reach. NG COILER HAND * Perla Monzon RN - 09/07/2022 10:35 [...] as evidenced by pain scores Outcome: Progressing NG COILER HAND * Chrissie Johns - 09/07/2022 2:48 PM CST Images from the original note were not included. Kidney Navigator Note Update Following pt for outpatient dialysis needs. Pt's first date of treatment for outpatient HD placement has been moved up to 09/10 to allow time for [employer] review. Will continue to follow pt progress. Chrissie Johns Dialysis Navigator [facility] P: [phone] [facility]: [phone] NG COILER HAND * Loly Aleman MD - 09/07/2022 1:11 [...] INR 0.9 1.0 0.9 Microbiology: Reviewed in [facility] Imaging: Reviewed in [facility] Assessment and Plan: 81 F h/o HTN, [...] with meals DC planning: Pt follows Dr. Ryees in [place], family wants pt to be in [facility]. ?? Patient was seen and discussed with attending physician, Dr. Philomena Aleman MD Nephrology Fellow #[phone] 09/07/2022 1:11 PM NG COILER HAND Associated attestation - Srini Quach MD - 09/07/2022 3:55 PM SPRING COILER HAND Nephrology Attending Physician I have seen and [...] infections are decreased or avoided Outcome: Progressing NG COILER HAND * Dmitriy Mari MSW - 09/07/2022 11:08 AM CST Update: Pt daughter Stacy Sheppard [phone], is potentially interested by [facility] and wants discussion with her other sister and will follow up with SW tomorrow Update: Fax was received and it is in review. Could take up to 72 hours for a response on the fast appeal. SW followed up on the teams attempts for peer 2 peer. Aetnanotified hospital social worker that the period for peer 2 peer has and SW was giving incorrect information. [employer] faxed over the denial letter to the current hospital social worker that stated that before the pt was on [address] there was an insurancedenial that was not communicated. The next step was completed by hospital social worker the denial letter, written appeal letter and updated clinicals was faxed to . Pt is interested in ARU at [facility] ARU fax # ). SW update Charlotte on what happened with the communication errors. BRADY checked to make sure [employer] received the faxed over information ( ) and phone number . Reference #[id number] BRADY Delatorre student [id number] 09/07/2022 NG COILER HAND * Jero Orozco MD - 09/07/2022 10:34 [...] MD General Internal Medicine 09/07/2022 10:34 AM NG COILER HAND * Vanessa Blakely SLP - 09/07/2022 9:24 AM CST [facility] Department of Physical Medicine & Rehabilitation Progress Note Patient: Kirsty Rea [facility] Record Number: [id number] Date of : 1940 Age: [age] year old 09/07/22 0924 Missed Visit Missed Visit Procedure Off Floor Patient off the floor Dialysis Vanessa Barr M.S., [facility]-SALES REPRESENTATIVE GROCERIES Speech Language Pathologist [phone] NG COILER HAND * María Sotelo RD/DENEEN - 09/07/2022 9:13 [...] HTN, CKD3, Morphea and osteopenia transferred from [facility] to [facility] Neuro ICU for pontine intraparenchymal hemorrhage. Diet [...] Progress: Continue with current goal Ascom [id number] NG COILER HAND * Aroldo Gomez OT - 09/07/2022 9:12 AM CST [facility] Department of Physical Medicine & Rehabilitation Progress Note Patient: Kirsty Rea [facility] Record Number: [id number] Date of : 1940 Age: [age] year old 09/07/22 0912 Missed Visit Missed Visit Procedure off the floor Patient off the floor Dialysis NG COILER HAND * Lexi Holden RN - 09/07/2022 6:36 [...] with dialysis:epoetin Report from:Mery Barr RN Phone number:[phone] NG COILER HAND * Jaclyn Gomez RN - 09/06/2022 4:50 [...] to allow for safe mobility Outcome: Progressing NG COILER HAND * Ying Diaz, PT - 09/06/2022 2:00 PM CST [facility] Physical Medicine and Rehabilitation Physical Therapy Progress Note Patient: Kirsty Rea [facility] Record Number: [id number] Date of : 1940 Age: [age] year [...] related to fatigue) Transfer Device: Gait belt (CENTER HUMAN RESOURCES MANAGER) Gait: Weight Bearing Status: (no restrictions) Distance [...] balance activities and monitoring of vitals Modified Miami: Current Modified Miami Score: 4 EDUCATION: While performing PT, Patient [...] will ambulate??50??feet with minimal assist??and appropriate AD Taping Supervisor Goal(s): Patient to discharge to appropriate [...] call light within reach, with RNJaclyn aware. NG COILER HAND * Lili Peters, OT - 09/06/2022 1:47 PM CST [facility] Physical Medicine and Rehabilitation Occupational Therapy Progress Note Patient: Kirsty Rea Med Record Number: [id number] Date of : 1940 Age: [age] year [...] Stand Pivot Transfer Transfer Device: Gait belt (CENTER HUMAN RESOURCES MANAGER) Balance: Sitting - Static: Poor;With Both Upper [...] perform bed to chair??with minimal assist ?? Taping Supervisor Goal(s): Patient to discharge to appropriate [...] call light within reach, with RNJaclyn aware. NG COILER HAND * Loly Aleman MD - 09/06/2022 10:51 [...] not displayed. Recent Labs Component Name 08/27/22 4551 08/26/22 0330 08/25/22 0338 INR 0.9 1.0 0.9 Microbiology: Reviewed in [facility] Imaging: Reviewed in [facility] Assessment and Plan: 81 F h/o HTN, [...] DC planning: Pt follows Dr. Reyes in [place], family wants pt to be in [facility]. ?? Patient was seen and discussed with attending physician, Dr. Philomena Aleman MD Nephrology Fellow #[phone] 09/06/2022 10:51 AM NG COILER HAND Associated attestation - Srini Quach MD - 09/06/2022 4:41 PM SPRING COILER HAND Nephrology Attending Physician I have seen and examined the patient with house-staff on round. I agree with the house-staff note. Briefly, Ms. 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 Today no new complaints. R IJ TDC c/d/I. Plan for HD tomorrow. She has [facility] dialysis chair [facility]. Srini Quahc MD Division of Nephrology * Amanda Almeida MSW - 09/06/2022 10:38 AM CST SW following for DC planning. Discussed status of review with Dr. Orozco, he states Dr. Patel called and left a message last week but received no call back. Dr. Orozco attempted to call today and remained on hold for a long time with no response. NIMO Degroot 09/06/2022 [phone] NG COILER HAND * Jero Orozco MD - 09/06/2022 10:12 [...] MD General Internal Medicine 09/06/2022 10:12 AM NG COILER HAND * Vanessa Blakely SLP - 09/06/2022 9:36 AM CST [facility] Physical Medicine and Rehabilitation Swallow Treatment Patient: Kirsty Rea Med Record Number: [id number] Date of : 1940 Age: [age] year [...] liquids while following aspiration precautions listed below. SALES REPRESENTATIVE GROCERIES will continue to follow up for diet [...] Functional Limits Pharyngeal: Delayed Swallow;Decreased Laryngeal Elevation [place] Thick Liquid: Presentation: Cup-Assisted;Spoon-Assisted Oral: Within Functional [...] Impression - Pharyngeal: Mild;Moderate Treatment/Education/Interventions: While performing SALES REPRESENTATIVE GROCERIES, Patient was instructed in: results of swallow [...] liquid consistencies without clinical signs of aspiration. Mcc Goal (s): Patient to be independent/baseline with functional mobility and self care and be able to safely discharge to prior level of care. Plan: Advance to a mechanical soft/easy to chew diet with thin liquids, SALES REPRESENTATIVE GROCERIES will follow for diet tolerance Vanessa Barr M.S., [facility]-SALES REPRESENT[employer]IVE [employer] Speech Language Pathologist [phone] NG COILER HAND * Chrissie Johns - 09/06/2022 8:53 AM CST Images from the original note were not included. KIDNEY NAVIGATOR NOTE Outpatient Placement Confirmed: Clinic: [facility] Dialysis [facility] [place] [address] P: [phone] F: [phone] First Day of Treatment: Thursday September 08, 2022 Schedule Day: Schedule Time: 11:45 am Patient Transportation Driver: Dr. Leticia Johns, Dialysis Navigator [facility] Kidney Care P: [phone] Asom: [phone] 09/06/2022 8:53 AM NG COILER HAND * Ольга Cochran RN - 09/06/2022 1:34 [...] to engage in desired activity. Outcome: Progressing NG COILER HAND * Jaclyn Gomez RN - 09/05/2022 5:45 [...] to allow for safe mobility Outcome: Progressing NG COILER HAND * Loly Aleman MD - 09/05/2022 11:21 [...] INR 0.9 1.0 0.9 Microbiology: Reviewed in [facility] Imaging: Reviewed in [facility] Assessment and Plan: 81 F h/o HTN, [...] DC planning: Pt follows Dr. Reyes in [place], family wants pt to be in [facility]. ?? Patient was seen and discussed with attending physician, Dr. Cintron. Loly Aleman MD Nephrology Fellow #[phone] 09/05/2022 11:21 AM NG COILER HAND Associated attestation - Peggy Cintron MD - 09/05/2022 7:22 PM SPRING COILER HAND Attending Addendum I have seen and examined [...] TID Jero Orozco MD General Internal Medicine 09/05/2022 10:30 AM NG COILER HAND * Valeriano Dos Santos RN - 09/05/2022 [...] pending. Peer 2 peer call information is [phone] Reference #[id number]. Anticipated Mode of Transportation:Ambulance Contacts (Name, relationship, phone #): Pt's daughters, Ms. Kumar ([phone]) Anticipated DC Date:TBD Comments:Insurance was submitted prior to the pt coming to [place] 08[place]31, and the insurance was denied on 08/24 with a letter. confirmed that the pt is on day for an opportunity to submit a peer 2 peer. Concepción Klein Phone: [phone] 09/03/2022 * Vanessa Blakely, SALES REPRESENTATIVE GROCERIES - 09/03/2022 3:23 PM CDT [facility] Physical Medicine and Rehabilitation Swallow Treatment Patient: Kirsty Rea Med Record Number: [id number] Date of : 1940 Age: [age] year [...] swallowing strategies to reduce her aspiration risk. SALES REPRESENTATIVE GROCERIES will continue to monitor for diet tolerance [...] Impression - Pharyngeal: Moderate Treatment/Education/Interventions: While performing SALES REPRESENTATIVE GROCERIES, Patient was instructed in: results of MBS/FEES, [...] clinical signs of aspiration and aspiration precautions. Taping Supervisor Goal (s): Patient to be independent/baseline with functional mobility and self care and be able to safely discharge to prior level of care. Plan: Continue current diet with strict aspiration precautions Vanessa Barr M.S., [facility]-[employer] REPRES[employer]IVE [employer] Speech Language Pathologist [phone] * Loly Aleman [...] Microbiology: Reviewed in Epic Imaging: Reviewed in [facility] Assessment and Plan: 81 F h/o HTN, [...] DC planning: Pt follows Dr. Reyes in [place], family wants pt to be in [facility]. ?? Patient was seen and discussed with attending physician, Dr. Cintron. Loly Aleman MD Nephrology Fellow #[phone] 09/03/2022 2:13 PM Associated attestation - Peggy [...] Quan, PT - 09/03/2022 2:10 PM CDT [facility] Physical Medicine and Rehabilitation Physical Therapy Progress Note Patient: Kirsty Rea [facility] Record Number: [id number] Date of : 1940 Age: [age] year [...] NOTIFIED Mental Status/Cognition: Level of Consciousness-Adult: Alert (TLINGIT & HAIDA) Orientation Level: Oriented X4 Cognition: Follows one [...] gait training and monitoring of vitals Modified Miami: Current Modified Miami Score: 4 EDUCATION: While performing PT, Patient [...] ambulate??50??feet with minimal assist??and appropriate AD ?? Taping Supervisor Goal(s): Patient to discharge to appropriate [...] care at discharge: Home, Acute Rehab Facility, Detention - Skilled Facility Discharge Plan: Discharge will [...] from the original note were not included. [facility] Wound/ Ostomy Note Height: Ht Readings [...] stage 3, GFR 30-59 ml/min ([facility]) proteinuria; Patient Transportation Driver = Dr. Reyes ??? HTN (hypertension), benign ??? 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 Morphea ??? Osteopenia Assessments [...] Oral, QDAY PRN Relevant labs reviewed in [facility] Recent Labs Component Name 09/03/22 0649 09/01/22 [...] NOT receivedany call backs Almaz Patel MD [facility] Medicine 09/03/2022 * Concepción Murillo RN - [...] Blakely SLP - 09/02/2022 2:35 PM CDT [facility] Physical Medicine and Rehabilitation Swallow Treatment Patient: Kirsty Rea [facility] Record Number: [id number] Date of : 1940 Age: [age] year old PPE: PPE worn by staff: mask - N95;gloves PPE worn by patient: gown - patient, clean Impressions: SALES REPRESENTATIVE GROCERIES followed up with Pt this afternoon to observe with trials from her lunch tray, no clinical signs of aspiration were noted during visit. SALES REPRESENTATIVE GROCERIES reviewed results of yesterday's MBS with need [...] Functional Limits Pharyngeal: Delayed Swallow;Decreased Laryngeal Elevation Lanham Thick Liquid: Presentation: Cup-Assisted;Spoon-Assisted Oral: Within Functional Limits Pharyngeal: Delayed Swallow;Decreased Laryngeal Elevation;Cough - Immediate Ground Texture: Presentation: Spoon-Assisted Oral: Increased Anterior to Posterior Transit Pharyngeal: Decreased Laryngeal Elevation Assessment: Risk For Aspiration: Mild Primary Diagnostic Impression - Oral: Mild Primary Diagnostic Impression - Pharyngeal: Moderate Treatment/Education/Interventions: While performing SALES REPRESENTATIVE GROCERIES, Patient was instructed in: results of MBS/FEES, [...] aspiration., Patient will follow recommended swallowing strategies. Taping Supervisor Goal (s): Patient to be independent/baseline with functional mobility and self care and be able to safely discharge to prior level of care. Plan: Continue current diet, SALES REPRESENTATIVE GROCERIES will follow up for tolerance Vanessa Barr M.S., [facility]-[employer] REPRES[employer]IVE [employer] Speech Language Pathologist [phone] * Almaz Patel [...] Oral, QDAY PRN Relevant labs reviewed in [facility] Recent Labs Component Name 09/01/22 0708/30/2241908/29/22 0204 [...] interval not displayed. Relevant imaging reviewed in [facility] CXR with improving congestion Assessment/Plan: Pontine intraparenchymal [...] the ICU on 08/24 Almaz Patel MD [facility] Medicine 09/02/2022 * Fan Carter RN - [...] peer. Peer 2 peer call information is [phone] Reference #[id number]. BRADY updated team on the peer 2 peer information to be completed. BRADY will continue to follow up. Pt and family interested in Eulogio RENDON. Dmitriy aMri, BRADY student [id number] 09/02/2022 * Marilou Lopez OT - 09/02/2022 10:40 AM CDT [facility] Department of Physical Medicine & Rehabilitation Progress Note Patient: Kirsty Rea [facility] Record Number: [id number] Date of : 1940 Age: [age] year old 09/02/22 1040 Missed Visit Missed Visit Procedure Off Floor Patient off the floor Dialysis AM 1040- patient off the floor at dialysis. Will follow up as schedule permits. * Ying Diaz, PT - 09/02/2022 9:50 AM CDT [facility] Department of Physical Medicine & Rehabilitation Progress Note Patient: Kirsty Rea [facility] Record Number: [id number] Date of : 1940 Age: [age] year old 09/02/22 0950 Missed Visit Missed Visit Procedure Off Floor (Dialysis) Patient off floor for HD treatment. PT to follow up as able. * Vanessa Blakely SLP - 09/02/2022 9:22 AM CDT [facility] Department of Physical Medicine & Rehabilitation Progress Note Patient: Kirsty Rea [facility] Record Number: [id number] Date of : 1940 Age: [age] year old 09/02/22 0922 Missed Visit Missed Visit RN care prior to HD, will attempt later today if schedule allows. Vanessa Barr M.S., [facility]-[employer] REPRES[employer]IVE [employer] Speech Language Pathologist [phone] * Lexi Holden, [...] with dialysis:no Report from:Angelita Ryan RN Phone number:[phone] * Dianne Callaway, - 09/02/2022 8:20 AM CDT Pulmonary Medicine Consult Note Name: Kirsty Rea, [id number] Age: [age] year old Room: 843/01 Date Admitted: 08/15/2022 ? Subjective: Hospital Course: Ms. Kirsty Rea??is an 81 y/o female??w/ hx of HTN,??CKD stage V,??morphea, who was admitted to [facility] on??08/15/22 to the Neuro-ICU for further care [...] Mild pulmonary hypertension, estimated pulmonary arterial systolic lpizvaxd96 mmHg. 7. Former smoker < 20 pack [...] Microbiology: Reviewed in Epic Imaging: Reviewed in [facility] Assessment and Plan: 81 F h/o HTN, [...] DC planning: Pt follows Dr. Reyes in [place], family wants pt to be in [facility]. ?? Patient was seen and discussed [...] progress and update. Chrissie Johns, Dialysis Navigator [facility] Kidney Care P: [phone] [facility]: [phone] * Almaz Patel MD - 09/01/2022 2:52 [...] Oral, QDAY PRN Relevant labs reviewed in [facility] Recent Labs Component Name 09/01/22 0706 08/30/22 [...] interval not displayed. Relevant imaging reviewed in [facility] CXR with improving congestion Assessment/Plan: Pontine intraparenchymal [...] Disposition:Inpatient for ongoing care Almaz Patel MD [facility] 09/01/2022 * Concepción Weston, PT - 09/01/2022 1:11 PM CDT [facility] Physical Medicine and Rehabilitation Physical Therapy Progress Note Patient: Kirsty Rea [facility] Record Number: [id number] Date of : 1940 Age: [age] year [...] gait training and monitoring of vitals Modified Miami: Current Modified Miami Score: 4 EDUCATION: While performing PT, Patient [...] feet with minimal assist and appropriate AD Taping Supervisor Goal(s): Patient to discharge to appropriate [...] Referral Follow-Up Update: Spoke with Charlotte from [facility]. She mentioned that she went to submit for insuranceand it seems that [facility] already submitted and it was denied. Charlotte received the information for the appeal and communicated that the past hospital social worker did not mention insurance was submitted once for a different facility. Current SW will attempt to submit an Appeal# [phone] and change of service for [facility] SW called insurance company and due to conversation the appeal is at the peer 2 peer level, social work then transferred the call to medical team to complete. BRADY will continue to follow up tomorrow on the completion of the appeal. Reference # [id number] Level of Care (SNF/Medicaid NH/Rehab/Mcc Care/LTACH): ARU BRADY Spoke to Charlotte (Liaison, [facility] [phone]) and they need updated therapy notes for insurance. BRADY notified the PT/OT evualuation team.BRADY faxed over recent OT and progress note, BRADY is waiting for PT note. BRADY will continue to follow up. Referrals initiated: Continued Care and Services - Admitted Since 08/15/2022 Destination Service Provider Request Status Selected Services Address Phone Fax Patient Preferred [facility] Accepted N/A [address] [facility], [facility] [address] [phone] -- Internal Comment last updated by Chidi Martins 08/31/2022 1000 Spoke with Petar [phone] Facility can accept and transport Pt to dialysis [facility] Considering Need insurance authorization [id number] [address], [facility] [address] [phone] -- Internal Comment last updated by Chidi Martins 08/31/2022 1008 Left VM for Charlotte (Liaison) [facility] Pending - Request Sent N/A [address] [address] [phone] -- [facility] and [facility])Pending - Request Sent N/A [address] [facility] [address] [phone] -- Current Capacity last updated by Maria L Del Rosario on 06/10/2022 1047 [address] [facility] [place] Pending - Request Sent N/A [address] [facility] [address] [phone] -- [facility] Declined Facility cannot provide for patient's needs, Facility unable to provide dialysis services N/A [address] [facility] [address] [phone] [facility] Declined Facility cannot provide for patient's needs, Unable to provide dialysis N/A [address] [facility] [address] [phone] -- [facility] Declined Facility cannot provide for patient's needs N/A [address] [facility] [address] [phone] -- [facility] Declined Facility cannot provide for patient's needs [place] [address] [facility] [address] [phone] -- Internal Comment last updated by Chidi Martins 08/31/2022 [address] [phone] called; facility unable to accept [facility] Declined Facility full N/A [address] [place] [address] [phone] -- Internal Comment last updated by Chidi Martins 08/31/2022 1441 Rec'd call from Marisa; facility does not have bed availability Dialysis/Infusion Service Provider Request Status Selected Services Address Phone Fax Patient Preferred [facility] Pending - Request Sent N/A [address] [place] [phone] -- If Medicare-3 day qualifying stay verified: Yes monitoring facility responses Comments/changes: Name: NIMO Delatorre Phone: [phone] * Linette Carrasco, PT - 09/01/2022 11:56 AM CDT [facility] Department of Physical Medicine & Rehabilitation Progress Note Patient: Kirsty Rea Med Record Number: [id number] Date of : 1940 Age: [age] year old 09/01/22 1140 Missed Visit Missed Visit Other (Comment) (pt working with OT at this time, will attempt to see patient as schedule allows) * Marilou Lopez OT - 09/01/2022 11:14 AM CDT [facility] Physical Medicine and Rehabilitation Occupational Therapy Progress Note Patient: Kirsty Rea Med Record Number: [id number] Date of : 1940 Age: [age] year [...] ACTIVITY TOLERANCE: Patient's activity tolerance: fair Modified Miami: Current Modified Miami Score: 4 TREATMENT/INTERVENTIONS: ADL training Functional transfer [...] bed to chair with minimal assist ?? Taping Supervisor Goal(s): Patient to discharge to appropriate [...] from the original note were not included. [facility] Modified Barium Swallow Study Patient: Kirsty Rea Med Record Number [id number] Date of : 1940 Age: [age] year old PPE: PPE donned by SALES REPRESENTATIVE GROCERIES during this session - N95 mask, eye protection and gloves. Referring Physician: MED 3 - Dr. 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 Reyes ??? HTN (hypertension), benign ??? 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 Morphea ??? Osteopenia Impression: Pt presents with moderate oropharyngeal dysphagia characterized by disorganized mastication of solids, delayed A-P transit across consistencies, reduced tongue base retraction, incompleteepiglottic deflection and incomplete laryngeal vestibule closure with observed deep penetration with thin and nectar thickened liquids and trace aspiration of nectar thickened liquids x1. SALES REPRESENTATIVE GROCERIES instructed Pt on chin tuck maneuver later during the exam, which did not result in aspiration or deep laryngeal penetration. Will recommend advancing to a Minced & Moist (5)/Mech Altered (DYS2) diet withthin liquids while following strict aspiration precautions listed below. SALES REPRESENTATIVE GROCERIES will plan to follow upfor diet tolerance [...] with contrast displacing back into the pharynx. Lanham-thick Fluids: Aspiration: Amount: Trace Timing: After swallow [...] pharyngeal exercises 3-5x/week to improve swallow function. Taping Supervisor Goal(s): Patient to be independent/baseline with functional swallow and be able to safely discharge to priorlevel of care. Vanessa Barr M.S., [facility]-[employer]AL[employer] REPRESENT[employer]IVE [employer] Speech Language Pathologist [phone] * Pricilla Ryan [...] Facility Referral Follow-Up Level of Care (SNF/Medicaid NH/Rehab/Mcc Care/LTACH): ARU This pt is new to the 8 floor. SW is reviewing pt. Pt is recommended ARU. Family is interested in [facility] Acute rehab. Per past SW note 08/31 at 1:07am SW Spoke to [facility] (Liaison, [facility]) and they need updated therapy notes for insurance, and SW notified the Clinical team notified. BRADY attempted to follow up on the referral x2 and was unable to reach liaison JOHNY Porter [phone]. SW spoke with pt's family Stacy Sheppard (daughter) [phone] to update. SW will continue to follow. Referrals initiated: Continued Care and Services - Admitted Since 08/15/2022 Destination Service Provider Request Status Selected Services Address Phone Fax Patient Preferred [facility] Accepted N/A [address], [facility] [address] [phone] -- Internal Comment last updated by Chidi Martins 08/31/2022 1000 Spoke with Petar [phone] Facility can accept and transport Pt to dialysis [facility] Considering Need insurance authorization [id number] [address], [facility] [address] [phone] -- Internal Comment last updated by Chidi Martins 08/31/2022 1008 Left VM for Charlotte HYATT (Liaison) [facility] Pending - Request Sent N/A [address] [facility] [address] [phone] -- [facility] Pending - Request Sent N/A [address] [address] [phone] -- [facility] and [facility])Pending - Request Sent N/A [address] [phone] -- Current Capacity last updated by Maria L Del Rosario on 06/10/2022 1047 [address] [facility] [place] [facility] Pending - Request Sent N/A [address] [facility] [address] [phone] -- [facility] Declined Facility cannot provide for patient's needs, Facility unable to provide dialysis services N/A [address] [facility] [id number] [facility] Declined Facility cannot provide for patient's needs, Unable to provide dialysis N/A [address] [facility] [address] [phone] -- [facility] Declined Facility cannot provide for patient's needs N/A [address] [facility] [address] [phone] -- Internal Comment last updated by Chidi Martins 08/31/2022 1442 Paul [phone] called; facility unable to accept [facility] Declined Facility full N/A [address] [facility] [address] [phone] -- Internal Comment last updated by Chidi Martins 08/31/2022 1441 Rec'd call from Marisa; facility does not have bed availability Dialysis/Infusion Service Provider Request Status Selected Services Address Phone Fax Patient Preferred [facility] Pending - Request Sent N/A [address] [place] [phone] -- If Medicare-3 day qualifying stay verified: Yes monitoring facility responses Comments/changes: Name: NIMO Delatorre Phone: [phone] * Vanessa Blakely SLP - 08/31/2022 2:20 PM CDT [facility] Department of Physical Medicine & Rehabilitation Progress Note Patient: Kirsty Rea [facility] Record Number: [id number] Date of : 1940 Age: [age] year old SALES REPRESENTATIVE GROCERIES attempted to complete MBS this pm, however Radiology reported that the Pt was in HD at the timetransport attempted to retrieve her for the exam. SALES REPRESENTATIVE GROCERIES will attempt to schedule and complete exam tomorrow (09/01). Vanessa Barr M.S., [facility]-SALES REPRESENT[employer]IVE [employer] Speech Language Pathologist [phone] * Gunjan Kelly [...] HTN, CKD3, Morphea and osteopenia transferred from [facility] to [facility] Neuro ICU for pontine intraparenchymal hemorrhage. Diet [...] follow and update. Chrissie Johns Dialysis Navigator [facility] Care P: [phone] Asom: [phone] 08/31/2022 12:34 PM UPDATE: Pt has tentative HD schedule at [facility], 2nd shift. Pending hemodialysis flowsheets,Hep B total [...] INR 0.9 1.0 0.9 Microbiology: Reviewed in [facility] Imaging: Reviewed in [facility] Assessment and Plan: #TOÑA on CKD5, now [...] DC planning: Pt follows Dr. Reyes in [place], family wants pt to be in [facility]. ?? Patient will be seen and discussed with attending physician, Dr. Cintron. Josh Harrell MD Nephrology fellow 08/31/2022 11:58 AM * Almaz Patel MD - 08/31/2022 11:52 AM CDT [facility] Progress Note Kirsty Rea is [...] Tube, QDAY PRN Relevant labs reviewed in [facility] Recent Labs Component Name 08/30/2241908/29/224 08/28/22 0416 [...] interval not displayed. Relevant imaging reviewed in [facility] CXR with improving congestion Assessment/Plan: Pontine intraparenchymal [...] Disposition:Inpatient for ongoing care Almaz Patel MD [facility] 08/31/2022 * Argenis Saunders COTA - 08/31/2022 11:10 AM CDT [facility] Department of Physical Medicine & Rehabilitation Progress Note Patient: Kirsty Rea [facility] Record Number: [id number] Date of : 1940 Age: [age] year [...] 08/31/2022 1:06 PM Spoke to Charlotte ([facility]) Needs updated therapy notes for insurance Clinical team notified Continued Care and Services - Admitted Since 08/15/2022 Destination Service Provider Request Status Selected Services Address Phone Fax Patient Preferred [facility] Accepted N/A [address], [facility] [address] [phone] -- Internal Comment last updated by Chidi Martins 08/31/2022 1000 Spoke with Petar [phone] Facility can accept and transport Pt to [facility] - ACUTE REHAB Considering Need insurance authorization [id number] [address], [facility] [address] [phone] -- Internal Comment last updated by Chidi Martins 08/31/2022 1008 Left VM for Charlotte HYATT (Liaison) SENIOR SERVICES [facility] Pending - Request Sent N/A [address] [facility] [address] [phone] -- [facility] Pending - Request Sent N/A [address] [address] [phone] -- [facility] ([facility])Pending - Request Sent N/A [address] [facility] [phone] -- Current Capacity last updated by Maria L Del Rosario on 06/10/2022 1047 [address] [facility] [place] Pending - Request Sent N/A [address] [facility] [address] [phone] -- [facility] Declined Facility cannot provide for patient's needs, Facility unable to provide dialysis services N/A [address] [facility] [address] [phone] [facility] Declined Facility cannot provide for patient's needs, Unable to provide dialysis N/A [address], [facility] [address] [phone] -- [facility] Declined Facility cannot provide for patient's needs N/A [address] [facility] [address] [phone] -- Internal Comment last updated by Chidi Martins 08/31/2022 1442 Paul [phone] called; facility unable to accept [facility] Declined Facility full N/A [address], [place] [facility] [address] [phone] -- Internal Comment last updated by Chidi Martins 08/31/2022 1441 Rec'd call from Marisa; facility does not have bed availability Dialysis/Infusion Service Provider Request Status Selected Services Address Phone Fax Patient Preferred [facility] Pending - Request Sent N/A [address] [place] [phone] -- NIMO Kwok, TEO Responder [phone] 08/31/2022 10:57 AM * Chidi Martins - 08/31/2022 9:57 AM CDT Images from the original note were not included. Chart reviewed Medically ready to transition to next level of car Spoke with Petar Ireland [facility] can accept and transport Pt to dialysis Spoke with Stacy Sheppard (daughter) [phone] Wants SW to follow up [facility] Acute rehab; Left VM for liaison Left Agnes Monroy (daughter) [phone] Continued Care and Services - Admitted Since 08/15/2022 Destination Service Provider Request Status Selected Services Address Phone Fax Patient Preferred [facility] Accepted N/A [address], [facility] [address] [phone] -- Internal Comment last updated by Chidi Martins 08/31/2022 1000 Spoke with Petar [phone] Facility can accept and transport Pt to dialysis [facility] Pending - Request Sent N/A [address] [address], [facility] [address] [phone] -- Internal Comment last updated by Chidi Martins 08/31/2022 1008 Left VM for Charlotte ([place]) [facility] Pending - Request Sent N/A [address] [facility] [place] [address] [phone] -- [facility] Pending - Request Sent N/A [address] [address] [phone] -- [place] [facility] ([facility])Pending - Request Sent N/A [address] [phone] -- Current Capacity last updated by Maria L Del Rosario on 06/10/2022 1047 119 [facility] Pending - Request Sent N/A [address] [facility] [address] [phone] -- [facility] [place] [facility] Pending - Request Sent N/A [address] [facility] [address] [phone] -- [facility] Pending - Request Sent N/A [address] [place] [address] [phone] -- [facility] Declined Facility cannot provide for patient's needs, Facility unable to provide dialysis services N/A [address] [facility] [phone] [facility] Declined Facility cannot provide for patient's needs, Unable to provide dialysis N/A [address] [facility] [address] [phone] -- NIMO Kwok, TEO Stroke Responder [phone] 08/31/2022 9:59 AM * Vanessa Blakely, JUDIT - 08/31/2022 9:41 AM CDT [facility] Physical Medicine and Rehabilitation Swallow Treatment Patient: Kirsty Rea Med Record Number: [id number] Date of : 1940 Age: [age] year old PPE: PPE worn by staff: mask - N95;gloves PPE worn by patient: gown - patient, clean Impressions: Pt presents with continued concern for pharyngeal dysphagia with clinical signs of aspiration following nectar thickened liquid trials provided during SALES REPRESENTATIVE GROCERIES's bedside assessment. Given Pt's 02 needs have [...] Respiratory Status: nasal cannula: 5lpm Swallow Trials: Lanham Thick Liquid: Presentation: Cup-Assisted;Spoon-Assisted Oral: Within Functional Limits Pharyngeal: Delayed Swallow;Decreased Laryngeal Elevation;Cough - Immediate Assessment: Risk For Aspiration: Moderate Primary Diagnostic Impression - Oral: No dysphagia Primary Diagnostic Impression - Pharyngeal: Moderate Treatment/Education/Interventions: While performing SALES REPRESENTATIVE GROCERIES, Patient was instructed in: results of swallow [...] in an instrumental swallow assessment as appropriate. Mcc Goal (s): Patient to be independent/baseline with functional mobility and self care and be able to safely discharge to prior level of care. Plan: Continue NPO with plan for MBS today Vanessa Barr M.S., [facility]-SALES REPRESENTATIVE GROCERIES Speech Language Pathologist [phone] * Josh Harrell [...] INR 0.9 1.0 0.9 Microbiology: Reviewed in [facility] Imaging: Reviewed in [facility] Assessment and Plan: #TOÑA on CKD5 #Non-Anion [...] Hernandez OT - 08/30/2022 10:58 AM CDT [facility] Department of Physical Medicine & Rehabilitation Progress Note Patient: Kirsty Rea [facility] Record Number: [id number] Date of : 1940 Age: [age] year old 08/30/22 1058 Missed Visit Missed Visit Procedure Off Floor Patient off the floor Dialysis * Chidi Martins - 08/30/2022 10:14 AM CDT Images from the original note were not included. Chart Review Medically ready to transition to next level of care Post acute recommendation:??intense 3 hour per day multidisciplinary inpatient therapies?? Post acute recommendation:??[facility] Insurance authorization is required UPDATE 08/30/2022 1:28 PM New dialysis patient Juan Pablo unable to provide dialysis services Additional referrals sent Continued Care and Services - Admitted Since 08/15/2022 Destination Service Provider Request Status Selected Services Address Phone Fax Patient Preferred [facility] Pending - Request Sent N/A [address] [address], [facility] [address] [phone] -- [facility] Pending - Request Sent N/A [address] [facility] [address] [phone] -- [facility] Pending - Request Sent N/A 393 [facility] [address] [phone] -- [facility] Pending - Request Sent N/A [address] [address] [phone] -- [facility] ([facility])Pending - Request Sent N/A [address] [facility] [phone] -- Current Capacity last updated by Maria L Del Rosario on 06/10/2022 1047 119 [facility] Pending - Request Sent N/A [address] [facility] [address] [phone] -- [facility] [place] [facility] Pending - Request Sent N/A [address] [facility] [address] [phone] -- [facility] Pending - Request Sent N/A [address] [place] [address] [phone] -- [facility] Declined Facility cannot provide for patient's needs, Facility unable to provide dialysis services N/A [address] [facility] [phone] [facility] Declined Facility cannot provide for patient's needs, Unable to provide dialysis N/A [address] [facility] [address] -- NIMO Kwok, TEO Responder [phone] 08/30/2022 10:15 AM * Jero Orozco MD [...] of HTN,??CKD stage IV-V,??morphea, who presented to [facility] on??08/15/22 as OSH transferred for management of [...] any medications: labetalol Need for pain medications: supervisor endless track vehicle Blood pressure issues: HTN On any drips: no Is patient diabetic: no Any labs to draw: no Any other procedures today: no Any concerns about this patient: no Any medications to be given with dialysis: no Due date of next Central Line Dressing change: Primary RN educated on Incapacitated Nurse: Report from: Andrew Gray RN Phone number: [phone] * Carly Cronin RN - 08/29/2022 6:38 [...] Medications: Transportation: Name: Darell Bernal RN Phone: [phone] * Jero Orozco MD - 08/29/2022 10:09 [...] pontine intraparenchymal hemorrhage. She was transferred to [facility] on August 15 and was initially managed [...] INR 0.9 1.0 0.9 Microbiology: Reviewed in [facility] Imaging: Reviewed in [facility] Assessment and Plan: #TOÑA on CKD5 #Non-Anion [...] have a pontine intraparenchymal hemorrhage. Transferred to [facility] on August 15 and was initially managed [...] Cruz SLP - 08/28/2022 9:37 AM CDT [facility] Department of Physical Medicine & Rehabilitation Progress Note Patient: Kirsty Rea Med Record Number: [id number] Date of : 1940 Age: [age] year [...] INR 0.9 1.0 0.9 Microbiology: Reviewed in [facility] Imaging: Reviewed in [facility] Assessment and Plan: #TOÑA on CKD5 #Non-Anion [...] SBPs have been 130s-150s while here at [facility] - Has had clonidine and hydralazine added [...] Lawson MD - 08/27/2022 7:57 PM CDT [facility] INTERNAL MEDICINE PROGRESS NOTE Patient: [...] morphea who initially presented from OSH to [facility] on 08/15/22 for management of pontine [...] changes indicated at this time. Jayme Cage [facility] Kidney Navigator/Dialysis Cementer Machine [facility] Phone Number; [phone] * Ting Man RN - 08/27/2022 3:15 [...] Brand MD - 08/27/2022 11:30 AM CDT [facility] 08/27/2022 11:31 AM Patient: Kirsty Rea (:1940) Room: [facility] Admit Date: 08/15/2022. Hospital Day: 12 CC: Weakness Hospital Course: Mrs Rea??81 year old??female??w/ hx of HTN,??CKD stage IV-V,??morphea, who presented to [facility] on??08/15/22??as OSH transferred for management of pontine [...] 0659 08/27/22 0700 - 08/28/22 0659 Shift 3587-1121 2450-8173 9560-3576 24 Hour Total 7822-0360 8529-7384 9866-9758 24 Hour Total INTAKE I.V.(mL/kg/hr) 109.1(0.2) 96.1(0.1) [...] ABGs: No results for input(s): PHART, PO2ART, YFX5RMU, BEART in the last 46[address] hours. Micro: Reviewed Imaging: Imaging reviewed. Assessment: [...] CONSULT TO NUTRITIONAL SERV IP CONSULT TO C SOFTWARE DEVELOPER IP CONSULT TO PHYSICAL MED AND REHAB IP CONSULT TO HEARING AID SPECIALIST IP CONSULT TO NEPHROLOGY IP CONSULT TO INTERNAL MEDICINE IP CONSULT TO COMMUNITY MIDWIFE IP CONSULT TO WOUND NURSE IP CONSULT [...] INR 0.9 1.0 0.9 Microbiology: Reviewed in [facility] Imaging: Reviewed in [facility] Assessment and Plan: #TOÑA on CKD5 #Non-Anion [...] SBPs have been 130s-150s while here at [facility] - Has had clonidine and hydralazine added [...] Adair SLP - 08/27/2022 9:41 AM CDT [facility] Department of Physical Medicine & Rehabilitation Progress Note Patient: Kirsty Rea [facility] Record Number: [id number] Date of : 1940 Age: [age] year old 08/27/22 0900 Missed Visit Missed Visit Other (Comment) Patient currently requiring CPAP and not appropriate for PO intake. Will follow- up at a later time. Thank you, Lexi ANTUNEZ, CCC-SALES REPRESENTATIVE GROCERIES Speech Language Pathologist * Cherry Tarango, PT - 08/27/2022 9:16 AM CDT [facility] Physical Medicine and Rehabilitation Physical Therapy Initial Evaluation Note Patient: Kirsty Rea [facility] Record Number: [id number] Date of : 1940 Age: [age] year [...] Pt follows all commands, appropriately answers questions, TLINGIT & HAIDA ROM: RLE: AROM WFL LLE: AROM WFL [...] 2-3 lateral steps at EOB with bilateral CENTER HUMAN RESOURCES MANAGER) Transfer Device: Gait belt Pt required verbal [...] balance activities and monitoring of vitals Modified [place]: Current Modified [place] Score: 4 EDUCATION: While performing PT, Patient [...] feet with minimal assist and appropriate AD Taping Supervisor Goal(s): Patient to discharge to appropriate [...] Alyssa, OT - 08/27/2022 9:14 AM CDT [facility] Physical Medicine and Rehabilitation Occupational Therapy Re-Evaluation Note Patient: Kirsty Rea [facility] Record Number: [id number] Date of : 1940 Age: [age] year [...] activity tolerance: fair Modified Elizabeth: Current Modified [place] Score: 4 TREATMENT / EDUCATION / INTERVENTIONS: [...] perform bed to chair with minimal assist Taping Supervisor Goal(s): Patient to discharge to appropriate [...] Blakely, JUDIT - 08/26/2022 3:34 PM CDT [facility] Physical Medicine and Rehabilitation Swallow Treatment Patient: Kirsty Rea Med Record Number: [id number] Date of : 1940 Age: [age] year old PPE: PPE worn by staff: mask - N95;gloves PPE worn by patient: gown - patient, clean Impressions: Pt continues to present with suspected pharyngeal dysphagia with intermittent clinicalsigns of aspiration following nectar thickened liquid trials provided at the bedside. Pt was able to transition to a standard nasal cannula during SALES REPRESENTATIVE GROCERIES's visit with adequate oxygen saturations. Recommend Pt remain NPO with tentative plan to complete a repeat MBS tomorrow if Pt is able to remain on astandard nasal cannula. Pt can have ice chips and sips of nectar thickened water provided by staff command and control officer after oral care until exam can be [...] via nasal cannula during visit Swallow Trials: Lanham Thick Liquid: Presentation: Cup-Assisted;Spoon-Assisted Oral: Within Functional Limits Pharyngeal: Delayed Swallow;Decreased Laryngeal Elevation;Cough - Immediate Assessment: Risk For Aspiration: Moderate Primary Diagnostic Impression - Oral: No dysphagia Primary Diagnostic Impression - Pharyngeal: Moderate Treatment/Education/Interventions: While performing SALES REPRESENTATIVE GROCERIES, Patient was instructed in: results of swallow [...] oropharyngeal swallow function to warrant diet upgrade. Mcc Goal (s): Patient to be independent/baseline with functional mobility and self care and be able to safely discharge to prior level of care. Plan: NPO with tentative plan for MBS tomorrow (08/27) pending Pt's 02 status. Vanessa Barr M.S., CCC-SALES REPRESENTATIVE GROCERIES Speech Language Pathologist [phone] * Nick Rogel, DO - 08/26/2022 11:07 AM CDT [facility] Progress Note 08/26/2022 11:33 AM Patient: Kirsty Rea (:1940) Room: [facility] Admit Date: 08/15/2022. Hospital Day: 11 CC: Weakness Hospital Course: Mrs Rea??81 year old??female??w/ hx of HTN,??CKD stage IV-V,??morphea, who presented to [facility] on??08/15/22??as OSH transferred for management of pontine [...] 0659 08/26/22 0700 - 08/27/22 0659 Shift 7855-4213 4228-1393 2518-0860 24 Hour Total 4652-0325 2172-7487 1309-3894 24 Hour Total INTAKE I.V.(mL/kg/hr) 267(0.4) 1(0) 584.2(0.9) 852.2(0.4) 109.1 109.1 Tube 150 100 250 500 100 100 Enteral 161 395 556 Shift Total(mL/kg) 417(5) 262(3.1) 1229.2(14.9) 1908.2(23.1) 209.1(2.5) 209.1(2.5) OUTPUT Urine(mL/kg/hr) 100(0.1) 0(0) 100(0.1) Blood Loss 5 5 Shift Total(mL/kg) 105(1.3) 0(0) 105(1.3) NET 790 423 4887.2 1803.2 209.1 209.1 Weight (kg) 84 84 [...] ABGs: No results for input(s): PHART, PO2ART, ZRB2TGW, BEART in the last 92200 hours. Micro: Reviewed Imaging: Imaging reviewed. Assessment: [...] INR 1.0 0.9 0.9 Microbiology: Reviewed in [facility] Imaging: Reviewed in [facility] Assessment and Plan: #TOÑA on CKD5 #Non-Anion [...] SBPs have been 130s-150s while here at [facility] - Has had clonidine and hydralazine added [...] Blakely SLP - 08/25/2022 2:45 PM CDT [facility] Physical Medicine and Rehabilitation Bedside Swallow Assessment Patient: Kirsty Rea [facility] Record Number: [id number] Date of : 1940 Age: [age] year [...] anemia Acute decompensated heart failure ([facility]) Respiratory failure with hypoxia ([facility]) Hypertensive emergency Past Medical History: Diagnosis Date ??? CKD (chronic kidney disease) stage 3, GFR 30-59 ml/min ([facility]) proteinuria ??? HTN (hypertension), benign ??? 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 Morphea ??? Osteopenia In [...] patient: gown - patient, clean Impressions: Limited SALES REPRESENTATIVE GROCERIES evaluation this date given Pt only agreed [...] depending on Pt's02 requirements and respiratory status. SALES REPRESENTATIVE GROCERIES will plan to follow up for ongoing assessment with further recommendations to follow. Recommendations: Diet Liquids Recommendation: NPO Diet Solids Recommendation: NPO Recommended Form of Meds: NPO;Feeding Tube Pt ok for minimal sips of nectar thickened water by staff command and control officer (no more than 1-2 sips per hour) [...] Functional Limits Controls Secretions: Yes Swallow Trials: Lanham Thick Liquid: Presentation: Cup-Assisted Oral: Within Functional Limits Pharyngeal: Delayed Swallow;Decreased Laryngeal Elevation;Cough - Immediate (intermittnet cough noted throughout visit) Assessment: Risk For Aspiration: Moderate Primary Diagnostic Impression - Oral: No dysphagia Primary Diagnostic Impression - Pharyngeal: Moderate Education/Interventions: While performing SALES REPRESENTATIVE GROCERIES, Patient was instructed in: results of swallow [...] in an instrumental swallow assessment as appropriate. Taping Supervisor Goal (s): Patient to be independent/baseline with functional mobility and self care and be able to safely discharge to prior level of care. Plan: Continue NPO x minimal sips of nectar thickened water with staff command and control officer, will follow up for repeat assessment tomorrow with potential plan for MBS vs FEES pending Pt's respiratory status. Vanessa Barr M.S., [facility]-SALES REPRESENTATIVE GROCERIES Speech Language Pathologist [phone] * Sho Rogel [...] 1:23 PM Patient: Kirsty Rea (:1940) Room: [facility] Admit Date: 08/15/2022. Hospital Day: 10 CC: Weakness Hospital Course: Mrs Rea??81 year old??female??w/ hx of HTN,??CKD stage IV-V,??morphea, who presented to [facility] on??08/15/22??as OSH transferred for management of pontine [...] 0659 08/25/22 0700 - 08/26/22 0659 Shift 0974-9535 0945-4302 7218-5465 24 Hour Total 6470-8514 9943-1475 5995-8091 24 Hour Total INTAKE I.V.(mL/kg/hr) 346.1(0.5) 78.7(0.1) [...] ABGs: No results for input(s): PHART, PO2ART, TKC9IIM, BEART in the last 29144 hours. Micro: Reviewed, not collected sputum culture [...] In no apparent distress. Report called to VIDEO GAME DEVELOPER. * María Isaac MD - 08/25/2022 11:48 [...] INR 0.9 0.9 1.0 Microbiology: Reviewed in [facility] Imaging: Reviewed in [facility] Assessment and Plan: #TOÑA on CKD5 #Non-Anion [...] SBPs have been 130s-150s while here at [facility] - Has had clonidine and hydralazine added [...] Permacath placement at 1130 and contacted the janitor and cleaner. Pt received 2 hrs and 50 minutes [...] Mclaughlin - 08/24/2022 5:54 PM CDT This residential green building designer responded to referral from unit residential green building designer to provide book for patient. Patient's daughter was present at bedside, patient on breathing mask when residential green building designer arrived. Adobe Ball Mixer provided book as requested. Patient is aware pastoral care is available as needed and assured of prayer support. Adobe Ball Mixerkary Hernandez [phone] (desk [phone]) callisthenics instructor chaplain Marilee Hernandez [phone] (office [phone]) * Jillian Barr RN - 08/24/2022 5:24 [...] 1:37 PM Patient: Kirsty Rea (:1940) Room: [facility]/ Admit Date: 08/15/2022. Hospital Day: 9 CC: Weakness Hospital Course: Mrs Rea??81 year old??female??w/ hx of HTN,??CKD stage IV-V,??morphea, who presented to [facility] on??08/15/22??as OSH transferred for management of pontine [...] 0659 08/24/22 0700 - 08/25/22 0659 Shift 9063-9843 1378-8670 4947-2478 24 Hour Total 5644-7837 9513-4090 7735-9677 24 Hour Total INTAKE I.V.(mL/kg/hr) 100.7(0.2) 340.4(0.5) [...] ABGs: No results for input(s): PHART, PO2ART, KVE2QOQ, BEART in the last 34909 hours. Micro: Reviewed Imaging: Imaging reviewed. Assessment: [...] venti-mask at the time of our encounter. TLINGIT & HAIDA per RN. offered to bring a different book than the one she was reading to Kirsty. provided prayer that Kirsty's breathing will improve and she can get off the venti mask. chaplain Rosales Ascom [phone] callisthenics instructor [phone] * María Isaac MD - 08/24/2022 [...] INR 0.9 1.0 0.9 Microbiology: Reviewed in [facility] Imaging: Reviewed in [facility] Assessment and Plan: #TOÑA on CKD5 #Non-Anion [...] SBPs have been 130s-150s while here at [facility] - Has had clonidine and hydralazine added [...] Pt tolerated Tx without any distress. HD [place] packed with normal saline. * Kinsey Ya [...] 3:32 PM Patient: Kirsty Rea (:1940) Room: [facility] Admit Date: 08/15/2022. Hospital Day: 8 CC: Weakness Hospital Course: Mrs Rea??81 year old??female??w/ hx of HTN,??CKD stage IV-V,??morphea, who presented to [facility] on??08/15/22 as OSH transferred for management of [...] 0659 08/23/22 0700 - 08/24/22 0659 Shift 1877-6269 9434-1798 24 Hour Total 0847-6730 8042-5337 6679-5562 24 Hour Total INTAKE P.O. 0 I.V.(mL/kg/hr) [...] ABGs: No results for input(s): PHART, PO2ART, CNR4BUS, BEART in the last 81037 hours. Micro: reviewed Imaging: Imaging reviewed. Assessment: [...] in assessment below Nutrition Plan: Diet per SALES REPRESENTATIVE GROCERIES eval- dysphagia 2 with nectar thick liquids Consult for TF recs if warranted. Ensure Plus High Protein (1.5 kcal) (350 kcal, 20 grams pro, 40 grams CHO) TID Recommendations to Physician: none Comments: Pt scheduled for reassessment. Pt NPO. SALES REPRESENTATIVE GROCERIES rec dysphagia 2 nectar thick liquids from MBS yesterday. tx to ICU since then. Was NPO for procedure with nephrology but canceled. 4 BM x24 hrs. On venti-mask. Eating 0-25% of meals. Assessment: Med/Surg History and Clinical Diagnoses: past medical history of HTN, CKD3, Morphea and osteopenia transferred from [facility] to [facility] Neuro ICU for pontine intraparenchymal hemorrhage. Diet [...] under anesthesia. Loly Aleman MD Nephrology Fellow #[phone] * Chio Moore RN - 08/23/2022 10:30 [...] INR 1.0 0.9 0.9 Microbiology: Reviewed in [facility] Imaging: Reviewed in [facility] Assessment and Plan: #TOÑA on CKD5 #Non-Anion [...] SBPs have been 130s-150s while here at [facility] - Has had clonidine and hydralazine added [...] unchanged. I spoke to Dr. Reyes (primary janitor and cleaner) and met with daughter again. Discussed with [...] me that pt's other daughter Agnes Monroy ([phone]) would be coordinator cardiopulmonary services. Per Stacy and Agnes, father was on HD and familiar with it. Ade Berry ([place]) would be preference. [facility]N [facility] pt once d/c from hospital. Will continue to follow pt progress and update. Chrissie Johns Dialysis Navigator [facility] P: [phone] Asom: [phone] 08/23/2022 10:57 AM DOCUMENTED ACKNOWLEDGEMENT OF CHOICE: YES 08/23/2022 10:57 AM * Vanessa Blakely SLP - 08/23/2022 8:22 AM CDT [facility] Department of Physical Medicine & Rehabilitation Progress Note Patient: Kirsty Rea [facility] Record Number: [id number] Date of : 1940 Age: [age] year old 08/23/22 0800 Therapy on Hold Therapy on Hold Floor to ICU;New Order Required for Therapy Vanessa Barr M.S., [facility]-[employer]AL[employer] REPRESENTATIVE [employer] Speech Language Pathologist [phone] * Nadya Camara PTA - 08/23/2022 7:33 AM CDT [facility] Department of Physical Medicine & Rehabilitation Progress Note Patient: Kirsty Rea [facility] Record Number: [id number] Date of : 1940 Age: [age] year old 08/23/22 0733 Therapy on Hold Therapy on Hold Floor to ICU;Chart Reviewed;New Order Required for Therapy * Aroldo Gomez OT - 08/23/2022 7:16 AM CDT [facility] Department of Physical Medicine & Rehabilitation Progress Note Patient: Kirsty Rea [facility] Record Number: [id number] Date of : 1940 Age: [age] year [...] Little SLP - 08/22/2022 1:50 PM CDT [facility] Modified Barium Swallow Patient: Kirsty Rea Med Record Number [id number] Date of : 1940 Age: [age] year [...] ??? Morphea ??? Osteopenia Swallow Recommendations: Liquids: [place] thick liquids Diet: Minced & Moist (5)/Mech [...] pharyngeal exercises 3-5x/week to improve swallow function. Taping Supervisor Goal(s): Patient to be independent/baseline with functional swallow and be able to safely discharge to priorlevel of care. Janny Wu M.A. [facility]-[employer] Speech Language Pathologist * Katerina Lao RN - 08/22/2022 12:22 PM CDT Swallow eval done by speech therapist. Frequent coughing noted. Further testing recommended. * Zohra Schmid, PT - 08/22/2022 11:45 AM CDT [facility] Department of Physical Medicine & Rehabilitation Progress Note Patient: Kirsty Rea [facility] Record Number: [id number] Date of : 1940 Age: [age] year old 08/22/22 1100 Missed Visit Missed Visit RN Cancel Patient with decreased medical status this date. Will check on patient on 08/23. * Janny Little SLP - 08/22/2022 11:45 AM CDT [facility] Physical Medicine and Rehabilitation Bedside Swallow Assessment Patient: Kirsty Rea 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 Taping Supervisor Goal (s): Patient to be independent/baseline with functional mobility and self care and be able to safely discharge to prior level of care. Plan: Modified Barium Swallow Study Janny Wu M.A. [facility]-[employer] Speech Language Pathologist * Peggy Cintron MD [...] di alysis. To discuss with her primary janitor and cleaner, Dr. Reyes tomorrow. Recommend NPO after MN [...] from the original note were not included. [facility] INTERNAL MEDICINE PROGRESS NOTE Patient: Kirsty Rea Sex: female Age: [age] year old Date of : 1940 Date of Admission: 08/15/2022 Date: 08/22/2022 LOS: 7 SUBJECTIVE Interval History: PAPER MACHINE OPERATOR called overnight for increased SOB (96% saturation), hypertesive to 190/70 ABG with compensatedmetabolic acidosis. Given IV ativan, hydral x3 , metoprolol x2, lasix, benadryl. Increased dyspena and SOB this morning with chest discomfort. PO meds held Hospital Course: Patient is a??81 year old??white??female??with a PMH of HTN and CKD5 (baseline Cr ~3.3), morphea who presented??to OSH??on 08/15/22??with??generalized weakness and nausea/vomiting,??transfered to [facility]??due to pontine intraparenchymal hemorrhage found on [...] pain and workup was negative for pneumonia, [place], pneumothorax. CXR concerning for opacities c/w atelectasis [...] Procedure Component Value Units Date/Time TROPONIN I [[id number]] Order Status: Sent Specimen: Blood OSMOLALITY URINE [[id number]] (Normal) Collected: 08/22/22351 Order Status: Completed Specimen: Urine Random Updated: 08/22/22537 Osmolality Urine 309 mOsm/kg CREATININE URINE RANDOM [[id number]] Collected: 08/22/22351 Order Status: Completed Specimen: Urine Random Updated: 08/22/22425 Creatinine Urine 30 mg/dL UREA NITROGEN URINE RANDOM [[id number]] Collected: 08/22/22351 Order Status: Completed Specimen: Urine Random Updated: 08/22/22425 Urea Nitrogen Random Urine 186 mg/dL LYTES (NA K CL) URINE RANDOM PANEL [[id number]] Collected: 08/22/22351 Order Status: Completed Specimen: Urine Random Updated: 08/22/22425 Sodium Urine 75 mmol/L Potassium Urine 35.9 mmol/L Chloride Random Urine 105 mmol/L TROPONIN I [[id number]] (Abnormal) Collected: 08/21/22 2340 Order Status: Completed Specimen: Blood Updated: 08/22/22 0005 Troponin I 0.058 ng/mL RENAL FUNCTION PANEL [[id number]] Order Status: Sent Specimen: Blood CBC W/O DIFFERENTIAL [[id number]] Order Status: Sent Specimen: Blood PT-INR [facility] [[id number]] Order Status: Sent Specimen: Blood MAGNESIUM BLOOD [[id number]] Order Status: Sent Specimen: Blood BLOOD GASES ART + COOX PANEL [[id number]] (Abnormal) Collected: 08/21/221929 Order Status: Completed Specimen: [...] Toxic: >20% BASIC METABOLIC PANEL (CALCIUM TOTAL) [[id number]] (Abnormal) Collected: 08/21/22 1825 Order Status: Completed Specimen: Blood Updated: 08/21/22 185 BUN 59 mg/dL Creatinine 4.05 mg/dL Sodium 127 mmol/L Potassium 3.9 mmol/L Chloride 101 mmol/L CO2 16 mmol/L Glucose 123 mg/dL Calcium 8.8 mg/dL Anion Gap 14 BUN/Creatinine Ratio 15 Osmolality Calculated 282 mOsm/kg eGFR by CKD-EPI 11 mL/min/1.73 m2 TROPONIN I [[id number]] (Abnormal) Collected: 08/21/22 1655 Order Status: Completed Specimen: Blood Updated: 08/21/22 1739 Troponin I 0.054 ng/mL OSMOLALITY URINE [[id number]] (Normal) Collected: 08/21/22 120 Order Status: Completed Specimen: Urine Random Updated: 08/21/22 123 Osmolality Urine 378 mOsm/kg UREA NITROGEN URINE RANDOM [[id number]] Collected: 08/21/22 1204 Order Status: Completed Specimen: Urine Random Updated: 08/21/22 123 Urea Nitrogen Random Urine 528 mg/dL SODIUM URINE RANDOM [[id number]] Collected: 08/21/221203 Order Status: Completed Specimen: Urine Random Updated: 08/21/221232 Sodium Urine 25 mmol/L CREATININE URINE RANDOM [[id number]] Collected: 08/21/221203 Order Status: Completed Specimen: Urine Random Updated: 08/21/221232 Creatinine Urine 93 mg/dL LYTES (NA K) URINE RANDOM PANEL [[id number]] Collected: 08/21/221203 Order Status: Completed Specimen: Urine Random Updated: 08/21/221232 Sodium Urine 25 mmol/L Potassium Urine 52.2 mmol/L TROPONIN I [[id number]] (Abnormal) Collected: 08/21/221122 Order Status: Completed Specimen: Blood Updated: 08/21/221205 Troponin I 0.073 ng/mL D-DIMER [[id number]] (Abnormal) Collected: 08/21/221122 Order Status: Completed Specimen: [...] aspiration pneumonia, PE, aortic dissection,volume overload. 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 ?? Ree Rodrigues Internal Medicine M4 [facility] 08/22/2022 6:56 AM Associated attestation - Heraclio [...] study, however as it will likely not director talent management, will defer. Recent Spontaneous Pontine SAH and [...] to start dialysis tomorrow. - NPO @ [place] for permacath. I personally spent approximately 1 [...] Kunz MD - 08/21/2022 8:18 PM CDT [facility] DEPARTMENT OF INTERNAL MEDICINE Patient Name: Kirsty Rea 1940 Room: [facility] Date of Admission: 08/15/2022 Called to [...] Hany Kunz MD Internal Medicine, PGY-2 Pager [phone] 08/21/2022 8:26 PM . * Vivian Teran [...] Taylor SLP - 08/21/2022 10:09 AM CDT [facility] Department of Physical Medicine & Rehabilitation Progress Note Patient: Kirsty Rea Med Record Number: [id number] Date of : 1940 Age: [age] year old 08/21/22 1000 Missed Visit Missed Visit Other (Comment) Attempted to see patient for bedside swallowing evaluation, patient meeting with MD team at this time. ST will continue to follow and complete assessment when schedule permits. * Ree Rodrigues - 08/21/2022 7:16 AM CDT Images from the original note were not included. [facility] INTERNAL MEDICINE PROGRESS NOTE Patient: [...] presented??to OSH??on 08/15/22??with??generalized weakness and nausea/vomiting,??transfered to [facility]??due to pontine intraparenchymal hemorrhage found on [...] pain and workup was negative for pneumonia, [place], pneumothorax. CXR concerning for opacities c/w atelectasis [...] Procedure Component Value Units Date/Time PHOSPHORUS BLOOD [[id number]] (Abnormal) Collected: 08/21/22212 Order Status: Completed Specimen: Blood Updated: 08/21/22417 Phosphorus 5.8 mg/dL BASIC METABOLIC PANEL (CALCIUM TOTAL) [[id number]] (Abnormal) Collected: 08/21/22212 Order Status: Completed Specimen: Blood Updated: 08/21/22417 BUN 63 mg/dL Creatinine 4.29 mg/dL Sodium 127 mmol/L Potassium 3.9 mmol/L Chloride 101 mmol/L CO2 15 mmol/L Glucose 110 mg/dL Calcium 8.6 mg/dL Anion Gap 15 BUN/Creatinine Ratio 15 Osmolality Calculated 283 mOsm/kg eGFR by CKD-EPI 10 mL/min/1.73 m2 MAGNESIUM BLOOD [[id number]] (Normal) Collected: 08/21/22212 Order Status: Completed Specimen: Blood Updated: 08/21/22417 Magnesium 2.0 mg/dL PT-INR [facility] [[id number]] (Abnormal) Collected: 08/21/22212 Order Status: Completed Specimen: Blood Updated: 08/21/22413 PT 11.9 Seconds INR 0.9 Comment: The suggested therapeutic range for standard coumadin (warfarin) therapy is an INR of 2.0-3.0. For high-risk patients (Mechanical Mitral Valve Prosthesis, etc.), the suggested prophylactic therapeutic range is an INR of 2.5-3.5. CBC W/O DIFFERENTIAL [[id number]] (Abnormal) Collected: 08/21/22212 Order Status: Completed Specimen: Blood Updated: 08/21/22337 WBC 3.7 10??3/uL RBC 2.67 10??6/uL Hemoglobin 7.5 g/dL Hematocrit 22.3 % MCV 83.5 fL MCH 28.1 pg MCHC 33.6 g/dL Platelet Count 164 10??3/uL RDW-SD 40.8 fL RDW-CV 13.3 % MPV 9.9 fL nRBC Absolute 0.00 10??3/uL nRBC Auto 0.0 /100 WBC PROCALCITONIN LEVEL [[id number]] (Normal) Collected: 08/20/22 1244 Order Status: Completed [...] Change in Procalcitonin Calculator is available at [email or web address] If clinical picture has not improved and PCT remains high, reevaluate and consider treatment failure or other causes. TROPONIN I [[id number]] (Abnormal) Collected: 08/20/22 1244 Order Status: Completed Specimen: Blood Updated: 08/20/22 1323 Troponin I 0.113 ng/mL TROPONIN I [[id number]] Order Status: Canceled Specimen: Blood TROPONIN I [[id number]] Order Status: Canceled Specimen: Blood TROPONIN I [[id number]] (Abnormal) Collected: 08/20/22 0751 Order Status: Completed [...] pneumonia, atelectasis,volume overload, PE, PTX, aortic dissection, [place]. - patient with intermittent O2 use on [...] physician. ?? Ree Moodylupe Internal Medicine M[facility] 08/21/2022 7:16 AM Associated attestation - Heraclio [...] Hydralazine and Clonidine Date of Service: 08/21/2022 Heraclio Cabrera MD * Maryana Barnes RN - [...] Blakely, JUDIT - 08/20/2022 3:32 PM CDT [facility] Department of Physical Medicine & Rehabilitation Progress Note Patient: Kirsty Rea [facility] Record Number: [id number] Date of : 1940 Age: [age] year old 08/20/22 1516 Missed Visit Missed Visit MD's at bedside at time of visit, will attempt swallow eval again tomorrow Vanessa Barr M.S., [facility]-[employer] REPRESENT[employer]IVE [employer] Speech Language Pathologist [phone] * Richard Ojeda PT - 08/20/2022 2:30 PM CDT [facility] Physical Medicine and Rehabilitation Physical Therapy Progress Note Patient: Kirsty Rea [facility] Record Number: [id number] Date of : 1940 Age: [age] year [...] Verbal Cues for Safety;Requires Verbal Cues for Technique(p45rits throughout session;) Stand to Sit: Minimal Assistance;Requires [...] Patient's activity tolerance: fair. TREATMENT/INTERVENTIONS: strengthening exercises [id number] each: LAQ, marching, ankle pumps, hip abduction and sit<>stand [id number]), bed mobility training, transfer training, gait training, [...] will ambulate??100??feet with SBA??without??AD (updated 08/20) ?? Taping Supervisor Goal(s): Patient to discharge to appropriate [...] Calzada OT - 08/20/2022 12:59 PM CDT [facility] Physical Medicine and Rehabilitation Occupational Therapy Progress Note Patient: Kirsty Rea Med Record Number: [id number] Date of : 1940 Age: [age] year [...] sit to stand??with stand by assist ?? Taping Supervisor Goal(s): Patient to discharge to appropriate [...] Contacts (Name, relationship, phone #): Stacy Sheppard [phone] Anticipated DC Date: TBD Pending Needs: new medical w/u for pneumonia Comments: NIMO Spivey Phone [phone] 08/20/2022 * María Isaac MD - 08/20/2022 [...] INR 1.0 1.0 1.0 Microbiology: Reviewed in [facility] Imaging: Reviewed in [facility] Assessment and Plan: #Hyponatremia - DDx: Hypovolemia [...] and ext - trace edema.Urine volume 750mL Rzxoo-xj-khsnhco kidney disease in the setting of recent [...] from the original note were not included. [facility] INTERNAL MEDICINE PROGRESS NOTE Patient: [...] presented??to OSH??on 08/15/22??with??generalized weakness and nausea/vomiting,??transfered to [facility]??due to pontine intraparenchymal hemorrhage found on [...] Procedure Component Value Units Date/Time OSMOLALITY BLOOD [[id number]] (Normal) Collected: 08/20/22249 Order Status: Completed Specimen: Blood Updated: 08/20/22410 Osmolality 289 mOsm/kg TSH REFLEX FREE T4 [[id number]] (Normal) Collected: 08/20/22249 Order Status: Completed Specimen: Blood Updated: 08/20/22347 TSH 4.654 uIU/mL PHOSPHORUS BLOOD [[id number]] (Abnormal) Collected: 08/20/22249 Order Status: Completed Specimen: Blood Updated: 08/20/22332 Phosphorus 6.1 mg/dL TRIGLYCERIDES BLOOD [[id number]] (Normal) Collected: 08/20/22249 Order Status: Completed Specimen: Blood Updated: 08/20/22332 Triglycerides 64 mg/dL Comment: ATP III Classification of Triglycerides: <150 mg/dL: Normal 150 - 199 mg/dL: Borderline High 200 - 400 mg/dL: High >500 mg/dL: Very High BASIC METABOLIC PANEL (CALCIUM TOTAL) [[id number]] (Abnormal) Collected: 08/20/22249 Order Status: Completed Specimen: Blood Updated: 08/20/22332 BUN 66 mg/dL Creatinine 4.57 mg/dL Sodium 127 mmol/L Potassium 4.1 mmol/L Chloride 98 mmol/L CO2 16 mmol/L Glucose 118 mg/dL Calcium 8.2 mg/dL Anion Gap 17 BUN/Creatinine Ratio 14 Osmolality Calculated 284 mOsm/kg eGFR by CKD-EPI 9 mL/min/1.73 m2 MAGNESIUM BLOOD [[id number]] (Normal) Collected: 08/20/22249 Order Status: Completed Specimen: Blood Updated: 08/20/22332 Magnesium 2.0 mg/dL PT-INR [facility] [[id number]] (Normal) Collected: 08/20/22249 Order Status: Completed Specimen: Blood Updated: 08/20/22325 PT 13.3 Seconds INR 1.0 Comment: The suggested therapeutic range for standard coumadin (warfarin) therapy is an INR of 2.0-3.0. For high-risk patients (Mechanical Mitral Valve Prosthesis, etc.), the suggested prophylactic therapeutic range is an INR of 2.5-3.5. CBC W/O DIFFERENTIAL [[id number]] (Abnormal) Collected: 10/21/22 0250 Order Status: Completed Specimen: Blood Updated: 08/20/22 0313 WBC 4.0 10??3/uL RBC 2.61 10??6/uL Hemoglobin 7.3 g/dL Hematocrit 21.8 % MCV 83.5 fL MCH 28.0 pg MCHC 33.5 g/dL Platelet Count 153 10??3/uL RDW-SD 41.1 fL RDW-CV 13.4 % MPV 9.7 fL nRBC Absolute 0.00 10??3/uL nRBC Auto 0.0 /100 WBC URINALYSIS W/MICROSCOPIC NO CULTURE [[id number]] Order Status: Sent Specimen: Urine Cath Straight UREA NITROGEN URINE RANDOM [[id number]] Order Status: Sent Specimen: Urine Random SODIUM URINE RANDOM [[id number]] Order Status: Sent Specimen: Urine Random LYTES (NA K CL) URINE RANDOM PANEL [[id number]] Order Status: Sent Specimen: Urine Random CREATININE URINE RANDOM [[id number]] Order Status: Sent Specimen: Urine Random BASIC METABOLIC PANEL (CALCIUM TOTAL) [[id number]] (Abnormal) Collected: 08/19/22 2100 Order Status: Completed Specimen: Blood Updated: 08/19/220 BUN 71 mg/dL Creatinine 4.59 mg/dL Sodium 127 mmol/L Potassium 4.1 mmol/L Chloride 98 mmol/L CO2 16 mmol/L Glucose 131 mg/dL Calcium 8.4 mg/dL Anion Gap 17 BUN/Creatinine Ratio 15 Osmolality Calculated 287 mOsm/kg eGFR by CKD-EPI 9 mL/min/1.73 m2 OSMOLALITY URINE [[id number]] (Normal) Collected: 08/19/22 1300 Order Status: Completed Specimen: Urine Random Updated: 08/19/22 1411 Osmolality Urine 288 mOsm/kg SODIUM URINE RANDOM [[id number]] Collected: 08/19/22 1300 Order Status: Completed Specimen: Urine Random Updated: 08/19/22 1341 Sodium Urine <20 mmol/L PROTEIN CREATININE RATIO URINE RANDOM PNL [[id number]] (Abnormal) Collected: 08/19/22 1300 Order Status: Completed Specimen: Urine Random Updated: 08/19/22 1341 Protein Urine 163 mg/dL Creatinine Urine 96 mg/dL Protein/Creatinine Ratio Urine 1.70 URINALYSIS REFLEX TO MICROSCOPIC NO CULTURE [[id number]] (Abnormal) Collected: 08/19/22 1300 Order Status: Completed Specimen: Urine Clean Catch Updated: 08/19/22 1314 Color UA Yellow Clarity UA Slt Cloudy Specific Foster UA 1.011 pH UA 5.0 pH Protein UA 2+ Glucose UA Negative Ketone UA Negative Bilirubin UA Negative Blood UA Negative Nitrite UA Negative Leukocyte Esterase 2+ Urobilinogen UA Negative mg/dL Narrative: PROTEIN ELECTROPHORESIS URINE TIMED [[id number]] Collected: 08/19/22 1300 Order Status: Resulted Specimen: Urine Timed Updated: 08/19/22 1304 PHOSPHORUS BLOOD [[id number]] (Abnormal) Collected: 08/19/22 105 Order Status: Completed Specimen: Blood Updated: 08/19/22 1143 Phosphorus 5.7 mg/dL BASIC METABOLIC PANEL (CALCIUM TOTAL) [[id number]] (Abnormal) Collected: 08/19/22 1056 Order Status: Completed Specimen: Blood Updated: 08/19/22 1143 BUN 66 mg/dL Creatinine 4.65 mg/dL Sodium 127 mmol/L Potassium 4.0 mmol/L Chloride 99 mmol/L CO2 17 mmol/L Glucose 100 mg/dL Calcium 8.6 mg/dL Anion Gap 15 BUN/Creatinine Ratio 14 Osmolality Calculated 283 mOsm/kg eGFR by CKD-EPI 9 mL/min/1.73 m2 MAGNESIUM BLOOD [[id number]] (Normal) Collected: 08/19/22 105 Order Status: Completed Specimen: Blood Updated: 08/19/22 1143 Magnesium 2.1 mg/dL CBC W/O DIFFERENTIAL [[id number]] (Abnormal) Collected: 08/19/22 1056 Order Status: Completed Specimen: Blood Updated: 08/19/22 1135 WBC 4.6 10??3/uL RBC 2.65 10??6/uL Hemoglobin 7.6 g/dL Hematocrit 22.1 % MCV 83.4 fL MCH 28.7 pg MCHC 34.4 g/dL Platelet Count 159 10??3/uL RDW-SD 40.7 fL RDW-CV 13.5 % MPV 9.5 fL nRBC Absolute 0.00 10??3/uL nRBC Auto 0.0 /100 WBC PT-INR [facility] [[id number]] (Normal) Collected: 08/19/22 1056 Order Status: Completed Specimen: Blood Updated: 08/19/22 1131 PT 13.1 Seconds INR 1.0 Comment: The suggested therapeutic range for standard coumadin (warfarin) therapy is an INR of 2.0-3.0. For high-risk patients (Mechanical Mitral Valve Prosthesis, etc.), the suggested prophylactic therapeutic range is an INR of 2.5-3.5. PROTEIN ELECTROPHORESIS BLOOD [[id number]] Collected: 08/19/22 105 Order Status: Sent Specimen: Blood Updated: 08/19/221101 IMMUNOFIXATION BLOOD [[id number]] Collected: 08/19/221055 Order Status: Sent Specimen: Blood [...] #SOB #intermittent oxygen use #chest pressure -ddx: [place], pneumonia, atelectasis,volume overload, PTX, aortic dissection, esophageal [...] SBPs have been 130s-150s while here at [facility] -Goal SBP 130-150 -currently on labetalol??200mg bid, [...] physician. ?? Ree Rodrigues Internal Medicine M4 [facility] 08/20/2022 6:46 AM Associated attestation - Heraclio [...] INR 1.0 1.0 1.0 Microbiology: Reviewed in [facility] Imaging: Reviewed in [facility] Assessment and Plan: #TOÑA on CKD5 #Hyponatremia [...] ext - trace edema. Urine volume 600mL Hzhox-fw-nrkvdwa kidney disease in the setting of recent ICH, likely a prerenal component and anemia might be contributing. Agree with blood transfusion and erythropoietin administration. Hyponatremia and concern for possible SIADH, agree with urine studies, free water restriction, and recommend checking TSH level. Hypokalemia has resolved. Please see resident (Dr. Isaac)'s note for further details * Aroldo Rivera, STOPPER GRINDER-ELECTRON BEAM PHOTO MASK TECHNICIAN - 08/19/2022 2:03 PM CDT NEUROLOGY PROGRESS NOTE 08/19/2022 at 2:04 PM Admission Date:?08/15/2022 ?? HISTORY: History of Present Illness: 81 y/o F with past medical history of HTN, CKD3, Morphea and osteopenia transferred from [facility] to [facility] ICU for pontine intraparenchymal [...] PMH of??HTN??and??CKD3, Morphea and osteopenia transferred from [facility] to [facility] Neuro ICU for pontine intraparenchymal hemorrhage. ?? [...] Case findings discussed with ??Harlan,??Stroke??Fellow. Aroldo Rivera APRN-ELECTRON BEAM PHOTO MASK TECHNICIAN 08/19/2022 2:04 PM * Héctor Silva MD [...] CT head showed pontine ICH. Transferred to [facility] for further management. MRdoes not reveal [...] LDL, LDLCALC, LDLDIRECT, CHOLHDL in the last 99842 hours. Recent Labs Component Name 08/16/22 0044 HGBA1C 5.4 EAG 108 Recent Labs Component Name 08/19/22 1056 08/18/22 1011 08/17/22 0426 PLTCOUNT 159 160 197 * Argenis Saunders COTA - 08/19/2022 9:57 AM CDT [facility] Physical Medicine and Rehabilitation Occupational Therapy Progress Note Patient: Kirsyt Rea [facility] Record Number: [id number] Date of : 1940 Age: [age] year [...] activity tolerance: fair. Modified Elizabeth: Current Modified [place] Score: 4 TREATMENT/INTERVENTIONS: ADL training Functional transfer [...] sit to stand with stand by assist Mcc Goal(s): Patient to discharge to appropriate next [...] Camara PTA - 08/19/2022 9:30 AM CDT [facility] Physical Medicine and Rehabilitation Physical Therapy Progress Note Patient: Kirsty Rea [facility] Record Number: [id number] Date of : 1940 Age: [age] year [...] heel/toe raises x 10 reps each Modified [place]: Current Modified [place] Score: 4 EDUCATION: While performing PT, Patient [...] Patient will ambulate??75??feet with minimal assist??without??AD ?? Mcc Goal(s): Patient to discharge to appropriate next [...] day multidisciplinary inpatient therapies Post acute recommendation: [facility] Cha Ramachandran Anderson Liaison still pending insurance authorization EMS tentatively arranged for 6pm today ([facility] ground Crew) UPDATE 08/19/2022 1:07 PM Spoke w/ Cha (Juan Pablo Liaison) Pending insurance auth Not medically ready to transition to next level of care EMS postponed until 08/20. NIMO Kwok, TEO Responder [phone] 08/19/2022 8:43 AM * Yazmin Evangelista RN [...] Stauffer OT - 08/18/2022 4:21 PM CDT [facility] Department of Physical Medicine & Rehabilitation Progress Note Patient: Kirsty Rea [facility] Record Number: [id number] Date of : 1940 Age: [age] year old 08/18/22 1505 Missed Visit Missed Visit (With Physical therapy at time of attempt) * Christal Bautista PT - 08/18/2022 3:25 PM CDT [facility] Physical Medicine and Rehabilitation Physical Therapy Progress Note Patient: Kirsty Rea [facility] Record Number: [id number] Date of : 1940 Age: [age] year [...] gait training and monitoring of vitals Modified [place]: Current Modified [place] Score: 4 EDUCATION: While performing PT, Patient was instructed in:functional mobility training, energy conservation, safety awareness/fall precautions Presented to patient who demonstrates Fair understanding of instructions given. ACTIVITY TOLERANCE: Patient's activity tolerance: good ?? TREATMENT/INTERVENTIONS: evaluation, bed mobility training, transfer training, gait training, balance activities and monitoring of vitals ?? Modified [place]: Current Modified Elizabeth Score: 4 ?? 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 ICH score was 2 (infratentorial, age) on arrival. ?? Interval History: Patient was hypertensive overnight requiring IV antihypertensives with blood pressures ranging [id number]/60s-77s. Patient remained afebrile (Tm - 98.8) ?? [...] with generalized weakness and nausea/vomiting, transfered to [facility] due to pontine intraparenchymal hemorrhage found [...] ?? Grover Alexis MS3 * Aroldo Rivera APRN-ELECTRON BEAM PHOTO MASK TECHNICIAN - 08/18/2022 2:05 PM CDT NEUROLOGY PROGRESS NOTE 08/18/2022 at 2:06 PM Admission Date: 08/15/2022 ?? HISTORY: History of Present Illness: 81 y/o F with past medical history of HTN, CKD3, Morphea and osteopenia transferred from [facility] to [facility] Neuro ICU for pontine intraparenchymal [...] PMH of??HTN??and??CKD3, Morphea and osteopenia transferred from [facility] to [facility] Neuro ICU for pontine intraparenchymal hemorrhage. ?? [...] with Dr. Silva, Stroke attending. Aroldo Rivera APRN-ELECTRON BEAM PHOTO MASK TECHNICIAN 08/18/2022 2:06 PM * María Isaac MD [...] issues with urination; 2 unmeasured urine over [id number], bladder scan noting 408 this AM Objective: [...] INR 1.0 1.0 1.0 Microbiology: Reviewed in [facility] Imaging: Reviewed in [facility] Assessment and Plan: #TOÑA on CKD5 #Non-Anion [...] SBPs have been 130s-150s while here at [facility] PLAN: - Continue labetalol and home nifedipine [...] day multidisciplinary inpatient therapies Post acute recommendation: [facility] Juan Pablo Eubanks Spoke with Pt's daughters, Ms. Kumar ([phone]) Discussed transition planning. VM left for Pt's daughter, Agnes [phone] Clinical team updated UPDATE 08/18/2022 9:25 AM Spoke w/ Cha Bee) Pending insurance verification Facility is able to accept today if no authorization is required SW will await returned call from Cha. UPDATE 08/18/2022 12:43 PM Per acute rehab, insurance auth is required and submitted WH hgb is 6.2 NIMO Kwok, TEO Responder [phone] 08/18/2022 8:42 AM * Héctor Silva MD [...] CT head showed pontine ICH. Transferred to [facility] for further management. MRdoes not reveal [...] LDL, LDLCALC, LDLDIRECT, CHOLHDL in the last 14449 hours. Recent Labs Component Name 08/16/22 004 [...] that we would discharge her mother in [facility]. I reassured Ms. Sheppard that we [...] was important to follow-up with her new janitor and cleaner. I reassured her that she was not [...] Medications: Transportation: Name: Darell Bernal RN Phone: [phone] * Aroldo Rivera, STOPPER GRINDER-ELECTRON BEAM PHOTO MASK TECHNICIAN - 08/17/2022 12:45 PM CDT NEUROLOGY PROGRESS NOTE 08/17/2022 at 12:45 PM Admission Date: 08/15/2022 HISTORY: History of Present Illness: 81 y/o F with past medical history of HTN, CKD3, Morphea and osteopenia transferred from [facility] to [facility] Neuro ICU for pontine intraparenchymal [...] and CKD3, Morphea and osteopenia transferred from [facility] to [facility] Neuro ICU for pontine intraparenchymal hemorrhage. ?? [...] with Dr. Silva, Stroke attending. Aroldo Rivera APRN-ELECTRON BEAM PHOTO MASK TECHNICIAN 08/17/2022 12:45 PM * Chidi Martins - 08/17/2022 11:38 AM CDT Chart review/Stroke Rounds Not medically ready to transition to next level of care Post acute recommendation: Undetermined Pending skilled therapy evaluations Please refer to CM note for additional information. NIMO Kwok, TEO Responder [phone] 08/17/2022 11:39 AM * Vanessa Blakely SLP - 08/17/2022 11:37 AM CDT [facility] Department of Physical Medicine & Rehabilitation Progress Note Patient: Kirsty Rea 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 Pt politely declined any food/liquid trials from her lunch tray during visit given her reported lack of appetite, however Pt denied any concerns regarding her swallow function since last SALES REPRESENTATIVE GROCERIES visit. SALES REPRESENTATIVE GROCERIES will d/c Pt at this time given functional swallow during initial evaluation without any change in Pt's vitals to suggest aspiration since prior visit. Please feel free toreconsult should any concern regarding Pt's swallowing safety arise. Vanessa Barr M.S., [facility]-SALES REPRESENTATIVE [employer] Speech Language Pathologist [phone] * Kaley Hernandez OT - 08/17/2022 9:57 AM CDT [facility] Physical Medicine and Rehabilitation Occupational Therapy Initial Evaluation Note Patient: Kirsty Rea [facility] Record Number: [id number] Date of : 1940 Age: [age] year [...] ACTIVITY TOLERANCE: Patient's activity tolerance: fair. Modified [place]: Current Modified Elizabeth Score: 4 TREATMENT / [...] sit to stand with stand by assist Taping Supervisor Goal(s): Patient to discharge to appropriate [...] INR 1.0 1.0 1.0 Microbiology: Reviewed in [facility] Imaging: Reviewed in [facility] Assessment and Plan: #TOÑA on CKD5 #Non-Anion [...] absent edema. Urine output record is unavailable. Vhcpk-vm-owcrhnq kidney disease in the setting of recent [...] CT head showed pontine ICH. Transferred to [facility] for further management. MRdoes not reveal [...] LDL, LDLCALC, LDLDIRECT, CHOLHDL in the last 66137 hours. Recent Labs Component Name 08/16/2243 HGBA1C 5.4 EAG 108 Recent Labs Component Name 08/17/2242508/16/224308/15/22338 PLTCOUNT 197 196 203 * Christal Bautista, PT - 08/17/2022 9:25 AM CDT [facility] Physical Medicine and Rehabilitation Physical Therapy Initial Evaluation Note Patient: Kirsty Rea 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 ICH score was 2 (infratentorial, age) on arrival. Interval History: Patient was hypertensive overnight requiring IV antihypertensives with blood pressures ranging [id number]/60s-77s. Patient remained afebrile (Tm - 98.8) Objective [...] with generalized weakness and nausea/vomiting, transfered to [facility] due to pontine intraparenchymal hemorrhage found [...] Neurosurgery follow up information also placed in [facility] discharge navigator. NINA Lindsey 08/16/2022 11:08 AM * Chidi Martins - 08/16/2022 9:13 AM CDT New Stroke patient to caseload Chart reviewed Stroke Type:?Hemorrhagic Post acute recommendation: Undetermined Not medically ready to transition to next level of care Patient is currently undergoing medical interventions/evaluations Stroke Responder is assigned and following to assist with social needs as they present.?? Payer/Plan Subscriber Name Rel Member # Group # MEDICARE - MEDICARE P* KIRSTY REA [id number] [address] AETNA - AETNA MEDICAR* KIRSTY REA [id number] [address] [address] Please refer to CM note for additional information. NIMO Kwok MBA Responder [phone] 08/16/2022 9:14 AM * Héctor Silva MD [...] CT head showed pontine ICH. Transferred to [facility] for further management. MRdoes not reveal [...] LDL, LDLCALC, LDLDIRECT, CHOLHDL in the last 13970 hours. No results for input(s): HGBA1C, A1C, ETYMGBJFV2W, EAG in the last 59735 hours. Recent Labs Component Name 08/16/22 0044 [...] HTN, CKD3, Morphea and osteopenia transferred from [facility] to [facility] Neuro ICU for pontine intraparenchymal [...] and CKD3, Morphea and osteopenia transferred from [facility] to [facility] Neuro ICU for pontine intraparenchymal hemorrhage. ?? [...] passed PT/OT Evaluation: pending Smoking cessation: will student assistance counselor Cardiovascular Pulse Min: 61 Max: 85, [...] - Maria culture if febrile Gastrointestinal - SALES REPRESENTATIVE GROCERIES swallow evaluation:passed - Diet:cardiac - GI ppx: [...] 9:33 PM CDT Stroke Plan of care credit balance specialist called regarding concern for giving patient contrast for Brain MRI [facility] since her crcl is low. Per [...] Adair SLP - 08/15/2022 10:06 AM CDT [facility] Physical Medicine and Rehabilitation Bedside Swallow Assessment Patient: Kirsty Rea [facility] Record Number: [id number] Date of : 1940 Age: [age] year [...] kidney disease) stage 3, GFR 30-59 ml/min ([facility]) proteinuria ??? HTN (hypertension), benign ??? 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 Morphea ??? Osteopenia In [...] observed. Recommend regular solids and thin liquids. SALES REPRESENTATIVE GROCERIES will continue to follow to ensure diet [...] the results of the NSS match the SALES REPRESENTATIVE GROCERIES eval results?: Matched Education/Interventions: While performing SALES REPRESENTATIVE GROCERIES, Patient was instructed in: results of swallow [...] Patient will follow recommended swallowing strategies., Ongoing Mcc Goal (s): Patient to discharge to appropriate next level of inpatient care. Plan: dysphagia treatment Thank you, Lexi ANTUNEZ, [facility]-[employer]ALES REPRESENT[employer]IVE [employer] Speech Language Pathologist * Lorena Gonzalez RN [...] MEDICARE - MEDICARE P* KIRSTY REA Self [id number] [address] AETNA - AETNA MEDICAR* KIRSTY REA Self [id number] [address] [address] Prior level of functioning: ESRD and tired, [...] Information provided by the Agnes Monroy (Daughter) [phone]. Prior Stroke: none Co-morbidities: Esrd 40% function. [...] Short Term Goals: Discharge from the hospital Mcc Goals: Live in an assisted living faciility Patient and Family Questions/Concerns: Living situation with the son. Discharge Plan: Anticipated level of care at discharge: Home, Acute Rehab Facility Anticipated Discharge Date: 08/17/22 Lorena BEASLEY [facility] Supervisor Pre WaveSupervisor Paint: [phone] 08/15/2022 * Lorena Gonzalez RN - 08/15/2022 9:44 AM CDT Call attempt to the patient dtr to complete the assessment. Utr. Lorena BEASLEY [facility] Supervisor Pre WaveSupervisor Paint: [phone] 08/15/2022 * Valentine Tomas MD - 08/15/2022 9:05 AM CDT Images from the original note were not included. Neurology Critical Care Progress Note Kirsty Rea Age: [age] year old Date of : 1940 Date of Admission: 08/15/2022 Hospital Day: 0 Subjective HPI: 81 y/o F with past medical history of HTN, CKD3, Morphea and osteopenia transferred from [facility] to [facility] ICU for pontine intraparenchymal [...] HTN, CKD3, Morphea and osteopenia transferred from [facility] to [facility] ICU for pontine intraparenchymal [...] passed PT/OT Evaluation: pending Smoking cessation: will student assistance counselor Cardiovascular Pulse Min: 61 Max: 82, [...] if febrile Gastrointestinal No active issues - SALES REPRESENTATIVE GROCERIES swallow evaluation:passed - Diet:cardiac - GI ppx: [...] with Dr. Tiara Tomas MD Neurology Resident. [facility]. Associated attestation - Amos Menjivar II, DO [...] currently active medical problems as assessed by [facility] team include the following diagnoses and [...] some additional fluids Amos Menjivar DO PhD Project Manager Finance Department of Anesthesiology and Critical Care Chief Anesthesia Critical Care * Dominique Pino, PT - 08/15/2022 8:14 AM CDT [facility] Department of Physical Medicine & Rehabilitation Progress Note Patient: Kirsty Rea Med Record Number: [id number] Date of : 1940 Age: [age] year [...] of HTN,??CKD stage IV-V,??morphea, who presented to [facility] for worsening kidney function, cre peaked [...] Name 08/22/22 1801 08/22/22 0816 08/21/22 1930 [id number] 16* 16* 17* ASSESSMENT: 81 year old??female??w/ hx of HTN,??CKD stage IV-V,??morphea, who presented to [facility] for worsening kidney function, cre peaked to 4.65 on 08/19. requiring hemodialysis. PLAN: will proceed tunneled permcath placement today Labs reviewed. Loly Aleman MD Nephrology Fellow #[phone] * Loly Aleman MD - 08/23/2022 9:54 AM CDT INTERVENTIONAL NEPHROLOGY HISTORY AND PHYSICAL Patient Name: Kirsty Rea HISTORY OF PRESENT ILLNESS: 81 year old??female??w/ hx of HTN,??CKD stage IV-V,??morphea, who presented to [facility] on??08/15/22. Worsened kidney function, cre peaked to 4.65 on 08/19. REVIEW OF SYSTEMS: Negative for f/c Negative for c/p PAST MEDICAL HISTORY: Past Medical History: Diagnosis Date ??? CKD (chronic kidney disease) stage 3, GFR 30-59 ml/min ([facility]) proteinuria ??? HTN (hypertension), benign ??? 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 Morphea ??? Osteopenia PAST [...] Name 08/22/22 1801 08/22/22 0816 08/21/22 1930 [id number] 16* 16* 17* ASSESSMENT: Kirsty Rea is a 81 year old??female??w/ hx of HTN,??CKD stage IV-V,??morphea, who presented to [facility] on??08/15/22. Worsened kidney function, cre peaked to 4.65 on 08/19. PLAN: Pt is here for tunneled permcath placement Loly Aleman MD Nephrology Fellow #[phone] * Earnestine Brand MD - 08/22/2022 6:01 PM CDT MICU History & Physical Note 08/22/2022 6:02 PM Patient: Kirsty Rea (:1940) Room: [facility]/01 Admit Date: 08/15/2022. Hospital Day: 7 CC: Weakness HPI: Mrs Rea 81 year old??female??w/ hx of HTN,??CKD stage IV-V,??morphea, who presented to [facility] on??08/15/22 as OSH transferred for management of [...] solution 1 drop, Each Eye, DAILY ??? Holman-3 Fatty Acids (FISH OIL) 1200 MG Oral [...] ABGs: No results for input(s): PHART, PO2ART, VVC9WJP, BEART in the last 28310 hours. Micro: Microbiology Results (Displays last 21 days for this encounter ONLY) Procedure Component Value - Date/Time CULTURE SPUTUM+GRAM STAIN [[id number]] Lab Status: No result Specimen: Microbiology from Sputum MRSA DNA PCR [[id number]] Lab Status: No result Specimen: Microbiology from [...] 08/22/2022. > Dictated by Ron Marvin MD (residential child care counselor) Mir, MIKEL REYEZ MD have personally reviewed and interpreted this examination/study. > Interpreting Provider: MD JUAN CARLOS on 08/22/2022 1:28 PM US RETROPERITONEAL COMPLETE Result Date: 08/20/2022 IMPRESSION: 1.Normal renal size. No evidence of nephrolithiasis, hydronephrosis, or solid renal mass. 2.1.5 x 1.1 cm simple cyst within the upper pole of the right kidney. 3.Right pleural effusion. > Dictated by Xiao Retana MD (residential child care counselor). Corey Hester MD have personally reviewed and [...] CONSULT TO NUTRITIONAL SERV IP CONSULT TO C SOFTWARE DEVELOPER IP CONSULT TO PHYSICAL MED AND REHAB IP CONSULT TO HEARING AID SPECIALIST IP CONSULT TO NEPHROLOGY IP CONSULT TO INTERNAL MEDICINE IP CONSULT TO COMMUNITY MIDWIFE Code Status: Full code Earnestine Chatterjee MD [...] acidosis - nephrology with plans to initiate PAPER MACHINE OPERATOR. - Continue weaning supplemental O2 as tolerated. [...] to patient's presenting illness. José Garcia MD Filler Shredder of Internal Medicine Division of Pulmonary, Critical Care, and Sleep Medicine [employer] [facility] * Ree Rodrigues - 08/19/2022 2:37 PM CDT [facility] INTERNAL MEDICINE HISTORY & PHYSICAL NOTE Date of Admission: 08/15/2022 Patient: Kirsty Rea Sex: female Age: [age] year old Date of : 1940 Code Status: Full Code SUBJECTIVE Chief Complaint: Hyponatremia History of Present Illness: Patient is a??81 year old??white??female??with a PMH of HTN and CKD5 (baseline Cr ~3.3), morphea who presented??to OSH??on 08/15/22??with??generalized weakness and nausea/vomiting,??transfered to [facility]??due to pontine intraparenchymal hemorrhage found on [...] stage 3, GFR 30-59 ml/min ([facility]) proteinuria ??? HTN (hypertension), benign ??? 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 Morphea ??? Osteopenia [...] eyes once daily 2.5 mL 0 ??? Holman-3 Fatty Acids (FISH OIL) 1200 MG ??? [...] input(s): PH, PCO2, PO2 in the last 00394 hours. Invalid input(s): BICAR3 Amylase/Lipase: Invalid input(s): AMYL, LIPA Thyroid Studies: Recent Labs Component Name 01/04/20 1515 TSH 2.452 Cardiac Enzymes: Recent Labs Component Name 08/15/22 0817 08/15/22 0617 08/15/22 0339 TROPONINI 0.037* 0.030 0.035* Lipid Panel: No results for input(s): LDLCALC, HDL in the last 21563 hours. UA: + protein and leuk esterase [...] SBPs have been 130s-150s while here at [facility] -Goal SBP 130-150 -currently on labetalol 200mg [...] attending physician. Ree Rodrigues Internal Medicine M4 [facility] 08/19/2022 2:38 PM * Héctor Silva MD [...] CT head showed pontine ICH. Transferred to [facility] for further management. Physical Exam: Alert [...] LDL, LDLCALC, LDLDIRECT, CHOLHDL in the last 95520 hours. No results for input(s): HGBA1C, A1C, POZHIFYWF2U, EAG in the last 83291 hours. Recent Labs Component Name 08/15/22 0339 03/09/222 01/04/20 1515 PLTCOUNT 203 221 269 * Brandon Blevins MD - 08/15/2022 3:25 AM CDT Images from the original note were not included. [facility] Stroke History and Physical Kirsty Rea Age: [age] year old Date of : 1940 Date of Admission: 08/15/2022 Hospital Day: 0 Subjective Kirsty Rea is a 81 y/o F with past medical history of HTN, CKD3, Morphea and osteopenia transferred from [facility] to [facility] Neuro ICU for pontine intraparenchymal hemorrhage. Patient [...] HTN, CKD3, Morphea and osteopenia transferred from [facility] to [facility] Neuro ICU for pontine intraparenchymal hemorrhage.[facility] CTH [...] PT/OT pending Brandon Blevins MD Neurology Resident. [facility]. documented in this encounter Procedure Notes * Srini Quach MD - 09/09/2022 2:22 PM CST Procedure: Hemodialysis Indication: ESRD. This patient was seen and examined by me during dialysis today at 12:05PM. BP 93/56, HR 85. No complaints. Tolerating the treatment well. Patient will discharged to rehab today. Srini Quach MD Division of Nephrology NG COILER HAND * Srini Quach MD - 09/07/2022 3:55 PM CST Procedure: Hemodialysis Indication: ESRD. This patient was seen and examined by me during dialysis today at 9:35AM. BP 125/63. Trace edema. Epo increased to 8000 units x3/wk for anemia. Tolerating the treatment well. Srini Quach MD Division of Nephrology NG COILER HAND * Peggy Cintron MD - 09/04/2022 10:02 [...] set up and completed by Kerry Pete table games shift manager RT. Patient on RA (Device/FiO2 or liter flow/Settings/etc) during study. Results uploaded to [employer] and shared with Dr. Allen M.D., Software Engineer reading PFT's. Final report with interpretation will [...] placement RIJ Removal of RIJ татьяна catheter Piping Manager: Jes Ruiz MD Health Inspector: Loly Aleman MD ?? Complications: None ?? Permcath OK to use. Full procedure note and images in Synapse and EPIC (Results/Interventional) Dr.Posan Jairo Ruiz Interventional Nephrology [facility] 08/25/22 12:49 PM * Peggy Cintron [...] temporary dialysis access Surgeon: Francisco Camacho DO Health Inspector: Ashvin Barber MD Procedure Details Informed consent [...] of Pulmonary, Critical Care and Sleep Medicine [facility] Associated attestation - Ashvin Barber MD - [...] alternatives with patient, family members or patient sales representative public utilities: Yes Attestation: I have reviewed the immediate pre-procedure vital signs: Yes Patient reports or my clinical evaluation indicates there have been no changes in the patient's condition prior to the start of the procedure: Yes Intra-Procedure Patient is currently here for permcath placement 08/23/2022 9:52 AM Loly Aleman MD Nephrology Fellow #[phone] documented in this encounter Consult Notes * Dianne Callaway DO - 09/01/2022 7:27 AM CDTAssociated Order(s): IP CONSULT TO COMMUNITY MIDWIFE Images from the original note were not included. Pulmonary Medicine Consult Note Referring Physician: Hospitalist Reason for Referral: Pleural effusion Name: Kirsty Rea, [id number] Age: [age] year old Room: 843/01 Date Admitted: 08/15/2022 ? Subjective: Chief Complaint: Pleural effusion, AHRF HPI: Ms. Kirsty Rea is an 81 y/o female w/ hx of HTN, CKD stage V, morphea, who was admitted to [facility] on 08/15/22 to the Neuro-ICU for further [...] stage 3, GFR 30-59 ml/min ([facility]) proteinuria; Patient Transportation Driver = Dr. Reyes ??? HTN (hypertension), benign ??? 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 Morphea ??? Osteopenia [...] eyes once daily 2.5 mL 0 ??? Holman-3 Fatty Acids (FISH OIL) 1200 MG ??? [...] Intake/Output Summary (Last 24 hours) at 09/01/2022 6242 Last data filed at 09/01/2022 0426 Gross [...] not included. Neurology Critical Care Consult Kirsty Rae Age: [age] year old Date of : [...] 08/22 showed resolution of ICH. In a shoe repairer his ideal BP goal would be < 130/80. However while she is in the hospital BP goalcan be <180 with shoe repairer optimization. Recommendations: - Neuro checks q4 hours. - BP goal < 180 while in the hospital, but please try to optimize it's management. - document preparation specialist optimization of BP <130/80. -Stat CTH if [...] now can keep SBP < 180, however shoe repairer goal should be directed towards normotension according to AHA guideline. Date of Service: 08/26/2022 Rebecca Roger MD Neurologic Critical Care Attending * Massiel Harvey RN - 08/24/2022 4:14 PM CDTAssociated Order(s): IP CONSULT TO C SOFTWARE DEVELOPER I have been consulted due to the possibility or diagnosis of stroke, chart reviewed. Patient Name: Kirsty Rea Admission: 08/15/2022 3:01 AM EMS Activated Code Stroke: No - Direct Admit to ICU Arrival Mode: Transfer from Outside Facility - Pass [facility] Arrival Service: [facility] Initial NIHSS Score: NIH Total: 1 [...] 08/22/2022. > Dictated by Ron Marvin MD (residential child care counselor) I, MIKEL REYEZ MD have personally reviewed [...] effusion. > Dictated by Xiao Retana MD (residential child care counselor). Corey Hester MD have personally reviewed and [...] Report dictated by Heath Wu MD, MD (residential child care counselor). Juwan Hester have personally reviewed and interpreted this examination/study. > Interpreting Provider: Juwan Aceves on 08/23/2022 9:46 AM FL SWALLOWING FUNCTION STUDY Result Date: 08/22/2022 IMPRESSION: Fluoroscopy was provided for a procedure that was performed by Speech Therapy. Please see the Speech Therapy report for interpretation. Report dictated by German Aponte MD (residential child care counselor) Corey Hester MD have personally reviewed and interpreted this examination/study. > Interpreting Provider: Corey Min MD on 08/22/2022 9:28 PM Thank you for allowing me to participate in the care of Kirsty Rea. Massiel Harvey, SCHUYLERN, CNRN, SCRN College President, [facility] Office: [phone] Ascom: [phone] Email: * Albina Thakkar, ERYN/MARIO - 08/24/2022 9:31 [...] HTN, CKD3, Morphea and osteopenia transferred from [facility] to [facility] Neuro ICU for pontine intraparenchymal hemorrhage. Diet [...] 9:35 AM CDTAssociated Order(s): IP CONSULT TO COMMUNITY MIDWIFE Images from the original note were not included. PULMONARY CONSULT NOTE Consult requested by Yellow Team Attending Physician:Héctor Silva MD Reason for consultation: acute hypoxic respiratory failure and pleural effusion HPI: Kirsty Rea is a 81 year old female w/ hx of HTN, CKD stage IV-V, morphea, who presented [facility] on 08/15/22 referred to Neuro-ICU for further care of pontine IPH. She presented initially to [facility] complaining of nausea with associated vomiting and [...] stage 3, GFR 30-59 ml/min ([facility]) proteinuria ??? HTN (hypertension), benign ??? 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 Morphea ??? Osteopenia [...] Labs Component Name 08/22/22 0816 08/21/22 1930 [id number] 16* 17* ASSESSMENT & PLAN: In short, [...] of Pulmonary, Critical Care and Sleep Medicine [facility] Pager-Amion Associated attestation - Aj Sylvester MD - 08/22/2022 7:07 PM CDT I have seen, examined and discussed the patient with the fellow and I agree with the the findings and plan of care/recommendations as documented by the fellow. Date of service: 08/22/2022 Aj Sylvester M.D. Project Manager Finance of Internal Medicine Division of Pulmonary, Critical Care and Sleep Medicine [facility] * Crystal Villaseñor RN - 08/17/2022 12:18 PM CDTAssociated Order(s): IP CONSULT TO PHYSICAL MED AND REHAB [facility] Rehab has initiated an evaluation per stroke protocol. Will continue to follow for medical stability and tolerance/participation in therapies. Thank you for the referral. Crystal Villaseñor RN, BSN Clinical Liaison [facility] [phone] * Chidi Martins - 08/16/2022 3:58 PM CDTAssociated Order(s): IP CONSULT TO HEARING AID SPECIALIST Consult acknowledged Clinical team anticipates Pt will need an assisted living facility when medically ready to transition to next level of care Pt is also a homeowner which may be a financial barrier SW is assigned and following to assist with disposition needs. Thank you for referral, NIMO Kwok, TEO Stroke Responder [phone] 08/16/2022 3:58 PM * María Isaac MD - 08/16/2022 3:20 PM CDTAssociated Order(s): IP CONSULT TO NEPHROLOGY [facility] Department of Nephrology History & Physical Date [...] stage 3, GFR 30-59 ml/min ([facility]) proteinuria ??? HTN (hypertension), benign ??? 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 Morphea ??? Osteopenia [...] eyes once daily 2.5 mL 0 ??? Holman-3 Fatty Acids (FISH OIL) 1200 MG ??? [...] SBPs have been 130s-150s while here at [facility] PLAN: - Agree with restarting home labetalol [...] absent edema. Urine output record is unavailable. Cmrop-mb-opattne kidney disease in the setting of recent [...] HTN, CKD3, Morphea and osteopenia transferred from [facility] to [facility] Neuro ICU for pontine intraparenchymal hemorrhage. 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 [id number] [employer]. All rights reserved. This information is not intended as a substitute for professional medical care. Always follow your healthcare professional's instructions. [facility] * Clinical References MARIO - Jessica Garcia MD - 09/09/2022 2:17 PM [facility] Images from the original note were not included. Controlling Your High Blood Pressure - Video Watch to learn what high blood pressure is and how to know if you have it. To view the video go to this web address: [email or web address] Or, scan this QR code with your smart phone ?? [employer] [facility] * Clinical References MARIO - Massiel Harvey RN - 08/24/2022 4:26 PM CDT Images from the original note were not included. [id number] What Is Hemorrhagic Stroke? The brain needs [...] cells. Last Reviewed Date: 2021 ?? [employer]. All rights reserved. This information is not intended as a substitute for professional medical care. Always follow your healthcare professional's instructions. * Clinical References AVS - Massiel Harvey RN - 08/24/2022 4:26 PM CDT Images from the original note were not included. [id number] Understanding the Link Between High Blood Pressure and Stroke Each day that your blood pressure is too high, your chances of having a stroke are increased. Normal blood pressure is less than 120/80 millimeters of mercury (mmHg). This means systolic of less [id number] mmHg and diastolic of less than 80 [...] go away Last Reviewed Date: 2020 ?? [id number] [employer]. All rights reserved. This information is not intended as a substitute for professional medical care. Always follow your healthcare professional's instructions. * Code/Rapid Response Event - Melody Frias RN - 08/21/2022 7:20 PM CDT RAPID RESPONSE EVENT NOTE [address] [address] Patient: Kirsty Rea Location: : 1940 Reason for Admission: spontan head bleed Provider Teams Team Primary Team Specialty Team Pager [facility] Team Yes Internal Medicine Event Date/Time: 08/21/2022 @19:20 Summary of Events: The Rapid Response Team (PAPER MACHINE OPERATOR) was paged for increased work of breathing [...] TO: Dr. Silva, FROM: Hilda Lujan RN [employer] Email: Please clarify and document if the patient [...] st Contact Info) Description 12/11/2024 10:30 AM [facility] Appointment [facility] Vascular Services [address] [place] [address], [address] [address] Jarett Reinoso MD [address] [place] [address] Christine Benitez MD [address] [facility] [address] Keyshawn Krueger MD [address] [place] [id number] Armando Ferro, [address] [address] Scheduled Orders Name Type Priority Associated Diagnoses Order Schedule REASSESSMENT PARAMETERS Respiratory Care Routine ONCE for 1 Occurrences starting 08/24/2022 until 08/24/2022 documented as of this encounter Procedures Procedure Name Priority Date/Time Associated Diagnosis Comments HEMODIALYSIS INPATIENT Routine 2 5:44 PM [facility] CBC W/O DIFFERENTIAL Routine 09/08/2022 1:48 AM [facility] RENAL FUNCTION PANEL AM Draw 09/08/2022 1:48 AM [facility] HEMODIALYSIS INPATIENT Routine 2 6:45 PM [facility] CBC W/O DIFFERENTIAL Routine 09/06/2022 7:01 AM [facility] RENAL FUNCTION PANEL AM Draw 09/06/2022 7:01 AM [facility] MAGNESIUM BLOOD Routine 09/04/2022 6:36 AM CDT [...] (ABNORMAL) RENAL FUNCTION PANEL (09/08/2022 1:48 AM [facility]) BUN 39(H) 7 - 26 mg/dL 09/08/2022 3:17 AM [facility] Creatinine 2.69(H) 0.56 - 0.96 mg/dL 09/08/2022 3:17 AM [facility] Sodium 137 136 - 145 mmol/L 09/08/2022 3:17 AM [facility] Potassium 3.4(L) 3.5 - 4.5 mmol/L 09/08/2022 3:17 AM [facility] Chloride 99 98 - 107 mmol/L 09/08/2022 3:17 AM [facility] CO2 23 22 - 29 mmol/L 09/08/2022 3:17 AM [facility] Glucose 104 70 - 115 mg/dL 09/08/2022 3:17 AM [facility] Albumin 2.6(L) 3.4 - 5.0 g/dL 09/08/2022 3:17 AM [facility] Calcium 9.2 8.4 - 10.2 mg/dL 09/08/2022 3:17 AM [facility] Phosphorus 3.5 2.9 - 5.1 mg/dL 09/08/2022 3:17 AM [facility] Anion Gap 18 8 - 18 09/08/2022 3:17 AM [facility] BUN/Creatinine Ratio 14 7 - 23 09/08/2022 3:17 AM [facility] Osmolality Calculated 294 270 - 300 mOsm/kg 09/08/2022 3:17 AM [facility] eGFR by CKD-EPI 17(L) >=90 mL/min/1.7 3 m2 09/08/2022 3:17 AM [facility] Blood BLOOD SPECIMEN / Unknown Lab Venipuncture / Unknown 09/08/2022 1:48 AM [facility] 09/08/2022 2:44 AM [facility] Jero Orozco MD LAB - CHEMISTRY PATRICIA CASIANO [facility] Organization Address City/[facility] Co de Phone Number [address] [address] [phone] * (ABNORMAL) CBC W/O DIFFERENTIAL (09/08/2022 1:48 AM [facility]) WBC 7.2 3.5 - 10.5 10? 3 /uL 09/08/2022 2:53 AM [facility] RBC 2.98(L) 3.80 - 5.20 10? 6 /uL 09/08/2022 2:53 AM [facility] Hemoglobin 8.6(L) 12.0 - 15.6 g/dL 09/08/2022 2:53 AM [facility] Hematocrit 26.1(L) 35.0 - 45.0 % 09/08/2022 2:53 AM [facility] MCV 87.6 80.7 - 98.3 fL 09/08/2022 2:53 AM [facility] MCH 28.9 26.7 - 34.0 pg 09/08/2022 2:53 AM [facility] MCHC 33.0 30.8 - 35.9 g/dL 09/08/2022 2:53 AM [facility] RDW-SD 42.5 36.0 - 50.0 fL 09/08/2022 2:53 AM [facility] RDW-CV 14.0 11.2 - 14.8 % 09/08/2022 2:53 AM [facility] Platelet Count 268 150 - 400 10? 3 /uL 09/08/2022 2:53 AM [facility] MPV 10.1 9.4 - 12.9 fL 09/08/2022 2:53 AM [facility] nRBC Absolute 0.00 0 10? 3 /uL 09/08/2022 2:53 AM [facility] nRBC Auto 0.0 0 /100 WBC 09/08/2022 2:53 AM [facility] Blood BLOOD SPECIMEN / Unknown Lab Venipuncture / Unknown 09/08/2022 1:48 AM [facility] 09/08/2022 2:44 AM [facility] Jero Orozco MD LAB - HEMATOLOGY ORD ERABLES [facility] [address] [place] [address] [phone] * (ABNORMAL) RENAL FUNCTION PANEL (09/06/2022 7:01 AM [facility]) BUN 77(H) 7 - 26 mg/dL 09/06/2022 8:02 AM [facility] Creatinine 4.31(H) 0.56 - 0.96 mg/dL 09/06/2022 8:02 AM [facility] Sodium 136 136 - 145 mmol/L 09/06/2022 8:02 AM [facility] Potassium 4.0 3.5 - 4.5 mmol/L 09/06/2022 8:02 AM [facility] Chloride 95(L) 98 - 107 mmol/L 09/06/2022 8:02 AM [facility] CO2 18(L) 22 - 29 mmol/L 09/06/2022 8:02 AM [facility] Glucose 100 70 - 115 mg/dL 09/06/2022 8:02 AM [facility] Albumin 2.4(L) 3.4 - 5.0 g/dL 09/06/2022 8:02 AM [facility] Calcium 9.2 8.4 - 10.2 mg/dL 09/06/2022 8:02 AM [facility] Phosphorus 6.6(H) 2.9 - 5.1 mg/dL 09/06/2022 8:02 AM [facility] Anion Gap 27(H) 8 - 18 09/06/2022 8:02 AM [facility] BUN/Creatinine Ratio 18 7 - 23 09/06/2022 8:02 AM [facility] Osmolality Calculated 305(H) 270 - 300 mOsm/kg 09/06/2022 8:02 AM [facility] eGFR by CKD-EPI 10(L) >=90 mL/min/1.7 3 m2 09/06/2022 8:02 AM [facility] Blood BLOOD SPECIMEN / Unknown Lab Venipuncture / Unknown 09/06/2022 7:01 AM [facility] 09/06/2022 7:25 AM [facility] Jero Orozco MD LAB - CHEMISTRY ORDE [facility] Organization Address City/State/ZIP Co de Phone Number [facility] [address] [place] [address], [facility] [phone] * (ABNORMAL) CBC W/O DIFFERENTIAL (09/06/2022 7:01 AM [facility]) WBC 7.9 3.5 - 10.5 10? 3 /uL 09/06/2022 7:36 AM [facility] RBC 2.82(L) 3.80 - 5.20 10? 6 /uL 09/06/2022 7:36 AM [facility] Hemoglobin 8.2(L) 12.0 - 15.6 g/dL 09/06/2022 7:36 AM [facility] Hematocrit 24.6(L) 35.0 - 45.0 % 09/06/2022 7:36 AM [facility] MCV 87.2 80.7 - 98.3 fL 09/06/2022 7:36 AM [facility] MCH 29.1 26.7 - 34.0 pg 09/06/2022 7:36 AM [facility] MCHC 33.3 30.8 - 35.9 g/dL 09/06/2022 7:36 AM [facility] RDW-SD 43.1 36.0 - 50.0 fL 09/06/2022 7:36 AM [facility] RDW-CV 14.0 11.2 - 14.8 % 09/06/2022 7:36 AM [facility] Platelet Count 223 150 - 400 10? 3 /uL 09/06/2022 7:36 AM [facility] MPV 9.5 9.4 - 12.9 fL 09/06/2022 7:36 AM [facility] nRBC Absolute 0.00 0 10? 3 /uL 09/06/2022 7:36 AM [facility] nRBC Auto 0.0 0 /100 WBC 09/06/2022 7:36 AM [facility] Blood BLOOD SPECIMEN / Unknown Lab Venipuncture / Unknown 09/06/2022 7:01 AM [facility] 09/06/2022 7:25 AM [facility] Jero Orozco MD LAB - HEMATOLOGY ORD ERABLES [address] [address], [facility] [phone] * MAGNESIUM BLOOD (09/04/2022 6:36 AM CDT) Magnesium 2.2 1.6 - 2.6 mg/dL 09/04/2022 7:30 AM CDT [facility] Blood BLOOD SPECIMEN / Unknown Lab Venipuncture / Unknown 09/04/2022 6:36 AM CDT 09/04/2022 7:03 AM CDT Almaz Patel MD LAB - CHEMISTRY OR DERABLES [address] [address], [facility] [phone] * CARDIAC EKG ORDER (09/03/2022 1:15 PM [...] DATE/TIME OF EXAM: ??09/03/2022 8:25 AM, LOCATION ??[facility] INDICATION: R50.9: Fever, unspecified fever cause [...] noted. Report dictated by Joseph Goodwin DO (residential child care counselor). I, Narciso Oseguera MD have personally reviewed and interpreted this examination/study. > Interpreting Provider: Narciso Oseguera MD on 09/03/2022 4:36 PM Procedure Note Narciso Oseguera MD - 09/03/2022 PROCEDURE: XR CHEST 1VW PORTABLE, DATE/TIME OF EXAM: 09/03/2022 8:25AM, LOCATION [facility] INDICATION: R50.9: Fever, unspecified fever cause [...] noted. Report dictated by Joseph Goodwin DO (residential child care counselor). I, Narciso Oseguera MD have personally reviewed and interpreted this examination/study. > Interpreting Provider: Narciso Oseguera MD on 09/03/2022 4:36 PM Almaz Patel MD DIAGNOSTIC IMAGING ORDERABLES * MAGNESIUM BLOOD (09/03/2022 6:49 AM CDT) Magnesium 2.2 1.6 - 2.6 mg/dL 09/03/2022 7:38 AM CDT [facility] Blood BLOOD SPECIMEN / Unknown Lab Venipuncture / Unknown 09/03/2022 6:49 AM CDT 09/03/2022 7:11 AM CDT Almaz Patel MD LAB - CHEMISTRY OR DERABLES Performing Organization Address City/State/[facility] Co de Phone Number [address] [address], [facility] [phone] * (ABNORMAL) RENAL FUNCTION PANEL (09/03/2022 6:49 AM CDT) BUN 45(H) 7 - 26 mg/dL 09/03/2022 7:38 AM CDT [facility] Creatinine 3.18(H) 0.56 - 0.96 mg/dL 09/03/2022 7:38 AM T [facility] Sodium 136 136 - 145 mmol/L 09/03/2022 7:38 AM T [facility] Potassium 4.8(H) 3.5 - 4.5 mmol/L 09/03/2022 7:38 [facility] Chloride 101 98 - 107 mmol/L 09/03/2022 7:38 [facility] CO2 23 22 - 29 mmol/L 09/03/2022 7:38 [facility] Glucose 117(H) 70 - 115 mg/dL 09/03/2022 7:38 [facility] Albumin 2.4(L) 3.4 - 5.0 g/dL 09/03/2022 7:38 [facility] Calcium 9.5 8.4 - 10.2 mg/dL 09/03/2022 7:38 [facility] Phosphorus 4.1 2.9 - 5.1 mg/dL 09/03/2022 7:38 [facility] Anion Gap 17 8 - 18 09/03/2022 7:38 [facility] BUN/Creatinine Ratio 14 7 - 23 09/03/2022 7:38 [facility] Osmolality Calculated 295 270 - 300 mOsm/kg 09/03/2022 7:38 [facility] eGFR by CKD-EPI 14(L) >=90 mL/min/1.7 3 m2 09/03/2022 7:38 AM [facility] Blood BLOOD SPECIMEN / Unknown Lab Venipuncture / Unknown 09/03/2022 6:49 AM CDT 09/03/2022 7:11 AM CDT Jero Orozco MD LAB - CHEMISTRY PATRICIA CASIANO [facility] Organization Address City/[facility] Co de Phone Number [address] [address], [facility] [phone] * (ABNORMAL) CBC W/O DIFFERENTIAL (09/03/2022 6:49 AM CDT) WBC 8.5 3.5 - 10.5 10? 3 /uL 09/03/2022 7:27 [facility] RBC 2.72(L) 3.80 - 5.20 10? 6 /uL 09/03/2022 7:27 [facility] Hemoglobin 7.8(L) 12.0 - 15.6 g/dL 09/03/2022 7:27 [facility] Hematocrit 24.0(L) 35.0 - 45.0 % 09/03/2022 7:27 [facility] MCV 88.2 80.7 - 98.3 fL 09/03/2022 7:27 [facility] MCH 28.7 26.7 - 34.0 pg 09/03/2022 7:27 [facility] MCHC 32.5 30.8 - 35.9 g/dL 09/03/2022 7:27 AM [facility] RDW-SD 45.1 36.0 - 50.0 fL 09/03/2022 7:27 [facility] RDW-CV 14.7 11.2 - 14.8 % 09/03/2022 7:27 [facility] Platelet Count 214 150 - 400 10? 3 /uL 09/03/2022 7:27 [facility] MPV 9.6 9.4 - 12.9 fL 09/03/2022 7:27 [facility] nRBC Absolute 0.00 0 10? 3 /uL 09/03/2022 7:27 [facility] nRBC Auto 0.0 0 /100 WBC 09/03/2022 7:27 AM [facility] Blood BLOOD SPECIMEN / Unknown Lab Venipuncture / Unknown 09/03/2022 6:49 AM CDT 09/03/2022 7:11 AM T Jero Orozco MD LAB - HEMATOLOGY ORD ERABLES [facility] [address] [place] [address], [facility] [phone] * MAGNESIUM BLOOD (09/02/2022 5:16 AM CDT) Magnesium 2.2 1.6 - 2.6 mg/dL 09/02/2022 6:40 AM [facility] Blood BLOOD SPECIMEN / Unknown Lab Venipuncture / Unknown 09/02/2022 5:16 AM CDT 09/02/2022 5:57 AM CDT Almaz Patel MD LAB - CHEMISTRY OR DERABLES [facility] [address] [place] [address], [facility] [phone] * CT CHEST WO CONTRAST (09/01/2022 5:41 PM CDT) Anatomical Region Laterality Modality Chest Computed Tomogra phy 09/01/2022 6:34 PM CDT Impressions 09/02/2022 11:00 AM CDT Impression: 1.Atelectasis involving most of the right lower lobe. Lesser degree of middle lobe atelectasis. Mild left lung atelectasis. 2.Trace right pleural effusion, decreased. No left pleural effusion. > Dictated by Glendy Martínez MD (residential child care counselor). I, Kevin Casas MD have personally reviewed and interpreted this examination/study. > Interpreting Provider: Kevin Casas MD on 09/02/2022 11:00 AM Narrative 09/02/2022 11:00 AM CDT PROCEDURE: ??CT CHEST WO CONTRAST, DATE/TIME OF EXAM: ??09/01/2022 5:41 PM, LOCATION ??[facility] INDICATION: J96.01: Acute respiratory failure with [...] DATE/TIME OF EXAM: 09/01/2022 5:41 PM, LOCATION [facility] INDICATION: J96.01: Acute respiratory failure with [...] effusion. > Dictated by Glendy Martínez MD (residential child care counselor). Kevin Hester MD have personally reviewed and [...] DATE/TIME OF EXAM: ??09/01/2022 9:22 AM, LOCATION ??[facility] INDICATION: J96.01: Acute respiratory failure with [...] DATE/TIME OF EXAM: 09/01/2022 9:22 AM, LOCATION [facility] INDICATION: J96.01: Acute respiratory failure with [...] (ABNORMAL) RENAL FUNCTION PANEL (09/01/2022 7:06 AM [facility]) BUN 72(H) 7 - 26 mg/dL 09/01/2022 8:15 [facility] Creatinine 3.83(H) 0.56 - 0.96 mg/dL 09/01/2022 8:15 AM [facility] Sodium 135(L) 136 - 145 mmol/L 09/01/2022 8:15 AM [facility] Potassium 4.2 3.5 - 4.5 mmol/L 09/01/2022 8:15 AM [facility] Chloride 100 98 - 107 mmol/L 09/01/2022 8:15 AM [facility] CO2 27 22 - 29 mmol/L 09/01/2022 8:15 AM [facility] Glucose 146(H) 70 - 115 mg/dL 09/01/2022 8:15 AM [facility] Albumin 2.5(L) 3.4 - 5.0 g/dL 09/01/2022 8:15 AM [facility] Calcium 9.6 8.4 - 10.2 mg/dL 09/01/2022 8:15 AM [facility] Phosphorus 3.6 2.9 - 5.1 mg/dL 09/01/2022 8:15 AM [facility] Anion Gap 12 8 - 18 09/01/2022 8:15 AM [facility] BUN/Creatinine Ratio 19 7 - 23 09/01/2022 8:15 AM [facility] Osmolality Calculated 304(H) 270 - 300 mOsm/kg 09/01/2022 8:15 AM [facility] eGFR by CKD-EPI 11(L) >=90 mL/min/1.7 3 m2 09/01/2022 8:15 AM [facility] Blood BLOOD SPECIMEN / Unknown Lab Venipuncture / Unknown 09/01/2022 7:06 AM CDT 09/01/2022 7:40 AM CDT Jero Orozco MD LAB - CHEMISTRY PATRICIA CASIANO [facility] [address] [place] [address], [facility] [phone] * (ABNORMAL) CBC W/O DIFFERENTIAL (09/01/2022 7:06 AM CDT) WBC 8.8 3.5 - 10.5 10? 3 /uL 09/01/2022 7:51 AM CDT [facility] RBC 2.58(L) 3.80 - 5.20 10? 6 /uL 09/01/2022 7:51 AM [facility] Hemoglobin 7.4(L) 12.0 - 15.6 g/dL 09/01/2022 7:51 AM [facility] Hematocrit 23.3(L) 35.0 - 45.0 % 09/01/2022 7:51 AM [facility] MCV 90.3 80.7 - 98.3 fL 09/01/2022 7:51 AM [facility] MCH 28.7 26.7 - 34.0 pg 09/01/2022 7:51 AM [facility] MCHC 31.8 30.8 - 35.9 g/dL 09/01/2022 7:51 AM [facility] RDW-SD 45.4 36.0 - 50.0 fL 09/01/2022 7:51 AM [facility] RDW-CV 14.4 11.2 - 14.8 % 09/01/2022 7:51 AM [facility] Platelet Count 205 150 - 400 10? 3 /uL 09/01/2022 7:51 AM [facility] MPV 9.6 9.4 - 12.9 fL 09/01/2022 7:51 AM [facility] nRBC Absolute 0.00 0 10? 3 /uL 09/01/2022 7:51 AM [facility] nRBC Auto 0.0 0 /100 WBC 09/01/2022 7:51 AM CDT [facility] Blood BLOOD SPECIMEN / Unknown Lab Venipuncture / Unknown 09/01/2022 7:06 AM CDT 09/01/2022 7:40 AM CDT Jero Orozco MD LAB - HEMATOLOGY ORD ERABLES Performing Organization Address City/[facility]/ZIP Co de Phone Number [address] [address], [place] [phone] * HEPATITIS B CORE ANTIBODY TOTAL (09/01/2022 7:06 AM CDT) HBc Antibody Total Non-reacti ve Non-reacti ve 09/01/2022 10:02 AM CDT [facility] Blood BLOOD SPECIMEN / Unknown Lab Venipuncture / Unknown 09/01/2022 7:06 AM CDT 09/01/2022 7:39 AM CDT Josh Harrell MD LAB - CHEMISTRY ORDSundeep CASIANO Performing Organization Address [facility]/ZIP Co de Phone Number [address] [address], [place] [phone] * FOLATE (09/01/2022 7:06 AM CDT) Folate 12.3 7.0 - 31.4 ng/mL 09/01/2022 10:17 AM CDT [facility] Blood BLOOD SPECIMEN / Unknown Lab Venipuncture / Unknown 09/01/2022 7:06 AM CDT 09/01/2022 7:40 AM CDT Almaz Patel MD LAB - CHEMISTRY OR DERABLES Performing Organization Address City/[facility]/ZIP Co de Phone Number [address] [address], [place] [phone] * VITAMIN B12 (09/01/2022 7:06 AM CDT) Vitamin B12 665 213 - 816 pg/mL 09/01/2022 10:17 AM CDT [facility] Blood BLOOD SPECIMEN / Unknown Lab Venipuncture / Unknown 09/01/2022 7:06 AM CDT 09/01/2022 7:40 AM CDT Almaz Patel MD LAB - CHEMISTRY OR DERABLES [facility] [address] [place] [address], [facility] [phone] * NOCTURNAL DESATURATION STUDY (08/31/2022 11:08 AM [...] of Pulmonary, Critical Care, & Sleep Medicine [employer] 09/01/2022 , 2:00 PM Narrative Artem Villa MD - 08/31/2022 11:08 AM CDT Estuardo Lala RCP ? 08/31/2022 11:14 AM Nocturnal Oxygen Desaturation study set up and completed by Kerry Pete table games shift manager RT. ??Patient on RA ?? (Device/FiO2 or liter flow/Settings/etc) during study. ??Results uploaded to [employer] and shared with Dr. Allen M.D., Software Engineer reading PFT's. ??Final report with interpretation will be posted in Results Review under Pulse Oximetry, Continuous . ?? Procedure Note Estuardo Lala RCP - 08/31/2022 11:08 AM CDT Images from the original note were not included. Nocturnal Oxygen Desaturation study set up and completed by Kerry Pete table games shift manager RT. Patient on RA (Device/FiO2 or literflow/Settings/etc) during study. Results uploaded to [employer] and shared withDr. Allen M.D., Software Engineer reading PFT's. Final report withinterpretation will be posted in Results Review under Pulse Oximetry,Continuous . Jero Orozco MD RESPIRATORY THERAPY ORDERABLES * (ABNORMAL) RENAL FUNCTION PANEL (08/31/2022 9:03 AM [facility]) BUN 45(H) 7 - 26 mg/dL 08/31/2022 9:41 [facility] Creatinine 2.66(H) 0.56 - 0.96 mg/dL 08/31/2022 9:41 AM [facility] Sodium 135(L) 136 - 145 mmol/L 08/31/2022 9:41 AM [facility] Potassium 4.0 3.5 - 4.5 mmol/L 08/31/2022 9:41 AM [facility] Chloride 101 98 - 107 mmol/L 08/31/2022 9:41 AM [facility] CO2 26 22 - 29 mmol/L 08/31/2022 9:41 AM [facility] Glucose 135(H) 70 - 115 mg/dL 08/31/2022 9:41 AM [facility] Albumin 2.5(L) 3.4 - 5.0 g/dL 08/31/2022 9:41 AM [facility] Calcium 9.3 8.4 - 10.2 mg/dL 08/31/2022 9:41 AM [facility] Phosphorus 2.8(L) 2.9 - 5.1 mg/dL 08/31/2022 9:41 AM [facility] Anion Gap 12 8 - 18 08/31/2022 9:41 AM [facility] BUN/Creatinine Ratio 17 7 - 23 08/31/2022 9:41 AM [facility] Osmolality Calculated 294 270 - 300 mOsm/kg 08/31/2022 9:41 AM [facility] eGFR by CKD-EPI 18(L) >=90 mL/min/1.7 3 m2 08/31/2022 9:41 AM CDT [facility] Blood BLOOD SPECIMEN / Unknown Lab Venipuncture / Unknown 08/31/2022 9:03 AM CDT 08/31/2022 9:12 AM CDT Josh Harrell MD LAB - CHEMISTRY PATRICIA Garcia Organization Address City/State/ZIP Co de Phone Number [facility] [address] [place] [address], [facility] [phone] * XR CHEST 1VW PORTABLE (08/31/2022 8:45 AM CDT) Anatomical Region Laterality Modality Chest Radiographic Marychuy ging 08/31/2022 11:3 8 AM CDT Narrative 08/31/2022 2:14 PM CDT PROCEDURE: ??XR CHEST 1VW PORTABLE, DATE/TIME OF EXAM: ??08/31/2022 8:46 AM, LOCATION ??[facility] INDICATION: J96.01: Acute respiratory failure with [...] Report dictated by Heath Wu MD, MD (residential child care counselor). I, Debby James MD have personally reviewed and interpreted this examination/study. > Interpreting Provider: Debby James MD on 08/31/2022 2:14 PM Procedure Note Debby James MD - 08/31/2022 PROCEDURE: XR CHEST 1VW PORTABLE, DATE/TIME OF EXAM: 08/31/2022 8:46AM, LOCATION [facility] INDICATION: J96.01: Acute respiratory failure with [...] Report dictated by Heath Wu MD, MD (residential child care counselor). I, Debby James MD have personally reviewed and interpreted this examination/study. > Interpreting Provider: Debby James MD on 08/31/2022 2:14 PM Josh Harrell MD DIAGNOSTIC IMAGING O RDERABLES * (ABNORMAL) RENAL FUNCTION PANEL (08/30/2022 4:20 AM T) BUN 73(H) 7 - 26 mg/dL 08/30/2022 5:21 AM [facility] Creatinine 3.44(H) 0.56 - 0.96 mg/dL 08/30/2022 5:21 AM [facility] Sodium 139 136 - 145 mmol/L 08/30/2022 5:21 AM [facility] Potassium 3.7 3.5 - 4.5 mmol/L 08/30/2022 5:21 AM [facility] Chloride 104 98 - 107 mmol/L 08/30/2022 5:21 AM [facility] CO2 25 22 - 29 mmol/L 08/30/2022 5:21 AM [facility] Glucose 133(H) 70 - 115 mg/dL 08/30/2022 5:21 AM [facility] Albumin 2.4(L) 3.4 - 5.0 g/dL 08/30/2022 5:21 AM [facility] Calcium 9.2 8.4 - 10.2 mg/dL 08/30/2022 5:21 AM [facility] Phosphorus 3.5 2.9 - 5.1 mg/dL 08/30/2022 5:21 AM [facility] Anion Gap 14 8 - 18 08/30/2022 5:21 AM [facility] BUN/Creatinine Ratio 21 7 - 23 08/30/2022 5:21 AM [facility] Osmolality Calculated 311(H) 270 - 300 mOsm/kg 08/30/2022 5:21 AM [facility] eGFR by CKD-EPI 13(L) >=90 mL/min/1.7 3 m2 08/30/2022 5:21 AM [facility] Blood BLOOD SPECIMEN / Unknown Lab Venipuncture / Unknown 08/30/2022 4:20 AM CDT 08/30/2022 4:53 AM T Ashvin Barber MD LAB - CHEMISTRY ORDE [facility] Organization Address City/State/ZIP Co de Phone Number [facility] [address] [place] [address], [facility] [phone] * (ABNORMAL) CBC W/O DIFFERENTIAL (08/30/2022 4:20 AM CDT) WBC 9.1 3.5 - 10.5 10? 3 /uL 08/30/2022 5:00 AM [facility] RBC 2.51(L) 3.80 - 5.20 10? 6 /uL 08/30/2022 5:00 AM [facility] Hemoglobin 7.2(L) 12.0 - 15.6 g/dL 08/30/2022 5:00 AM [facility] Hematocrit 22.6(L) 35.0 - 45.0 % 08/30/2022 5:00 AM [facility] MCV 90.0 80.7 - 98.3 fL 08/30/2022 5:00 AM [facility] MCH 28.7 26.7 - 34.0 pg 08/30/2022 5:00 AM CDT [facility] MCHC 31.9 30.8 - 35.9 g/dL 08/30/2022 5:00 AM CDT [facility] RDW-SD 46.2 36.0 - 50.0 fL 08/30/2022 5:00 AM CDT [facility] RDW-CV 14.4 11.2 - 14.8 % 08/30/2022 5:00 AM T [facility] Platelet Count 200 150 - 400 10? 3 /uL 08/30/2022 5:00 AM T [facility] MPV 9.8 9.4 - 12.9 fL 08/30/2022 5:00 AM CDT [facility] nRBC Absolute 0.00 0 10? 3 /uL 08/30/2022 5:00 AM T [facility] nRBC Auto 0.0 0 /100 WBC 08/30/2022 5:00 AM T [facility] Blood BLOOD SPECIMEN / Unknown Lab Venipuncture / Unknown 08/30/2022 4:20 AM CDT 08/30/2022 4:53 AM CDT Héctor Silva MD LAB - HEMATOLOGY ORD ERABLES Performing Organization Address City/State/[facility] Co de Phone Number [address] [address], [facility] [phone] * TRANSFUSE RED BLOOD CELL LEUKOREDUCED UNIT(S) (08/29/2022 2:00 PM CDT) Primo Maurice MD NURSING - BLOOD PROD TRANSFUSION * TRANSFUSE RED BLOOD CELL LEUKOREDUCED UNIT(S), 1 Units (08/29/2022 2:00 PM CDT) Primo Maurice MD NURSING - BLOOD PROD TRANSFUSION * PREPARE (CROSSMATCH) RBC UNIT(S), 1 Units (08/29/2022 9:45 AM CDT) Unit Description AS1 LR PRBC [facility] Unit ABO A [facility] Unit Rh NEG [facility] Product Number R44 [facility] B[facility] Unit Donor # [id number] [facility] Unit Status transfused [facility] Product Code [id number] [facility] Blood Type Barcode 0600 [facility] Expiration Date [facility] Blood Bank BLOOD SPECIMEN / Unknown 08/29/2022 7:00 AM CDT Primo Maurice MD LAB - BLOOD BANK ORD ERABLES Performing Organization Address City/[facility]/ZIP Co de Phone Number [facility] [address] [place] [address], [facility] [phone] * TYPE + SCREEN PANEL (08/29/2022 6:48 AM CDT) Pathologist [facility] Antibody Screen NEG 7:39 AM CDT [facility] ABO Rh A NEG 08/29/2022 7:39 AM CDT [facility] Blood Bank BLOOD SPECIMEN / Unknown Venipuncture / Unknown 08/29/2022 6:48 AM CDT 08/29/2022 7:00 AM CDT Primo Maurice MD LAB - BLOOD BANK ORD ERABLES Performing Organization Address City/[facility]/ZIP Co de Phone Number [facility] [address] [place] [address], [facility] [phone] * (ABNORMAL) RENAL FUNCTION PANEL (08/29/2022 2:04 AM CDT) BUN 56(H) 7 - 26 mg/dL 08/29/2022 2:58 AM CDT [facility] Creatinine 2.98(H) 0.56 - 0.96 mg/dL 08/29/2022 2:58 AM CDT [facility] Sodium 138 136 - 145 mmol/L 08/29/2022 2:58 AM CDT [facility] Potassium 3.8 3.5 - 4.5 mmol/L 08/29/2022 2:58 AM CDT [facility] Chloride 101 98 - 107 mmol/L 08/29/2022 2:58 AM CDT [facility] CO2 26 22 - 29 mmol/L 08/29/2022 2:58 AM [facility] Glucose 136(H) 70 - 115 mg/dL 08/29/2022 2:58 AM [facility] Albumin 2.6(L) 3.4 - 5.0 g/dL 08/29/2022 2:58 AM [facility] Calcium 9.1 8.4 - 10.2 mg/dL 08/29/2022 2:58 AM [facility] Phosphorus 3.0 2.9 - 5.1 mg/dL 08/29/2022 2:58 AM [facility] Anion Gap 15 8 - 18 08/29/2022 2:58 AM [facility] BUN/Creatinine Ratio 19 7 - 23 08/29/2022 2:58 AM [facility] Osmolality Calculated 304(H) 270 - 300 mOsm/kg 08/29/2022 2:58 AM [facility] eGFR by CKD-EPI 15(L) >=90 mL/min/1.7 3 m2 08/29/2022 2:58 AM [facility] Blood BLOOD SPECIMEN / Unknown Lab Venipuncture / Unknown 08/29/2022 2:04 AM CDT 08/29/2022 2:31 AM CDT Ashvin Barber MD LAB - CHEMISTRY PATRICIA CASIANO [address] [address], [facility] [phone] * MAGNESIUM BLOOD (08/29/2022 2:04 AM CDT) Magnesium 2.1 1.6 - 2.6 mg/dL 08/29/2022 2:58 AM T [facility] Blood BLOOD SPECIMEN / Unknown Lab Venipuncture / Unknown 08/29/2022 2:04 AM CDT 08/29/2022 2:31 AM CDT Héctor Silva MD LAB - CHEMISTRY PATRICIA CASIANO [address] [address] [phone] * (ABNORMAL) CBC W/O DIFFERENTIAL (08/29/2022 2:04 AM T) [facility] WBC 8.3 3.5 - 10.5 10? 3 /uL 08/29/2022 2:37 AM [facility] RBC 2.25(L) 3.80 - 5.20 10? 6 /uL 08/29/2022 2:37 AM [facility] Hemoglobin 6.5(L) 12.0 - 15.6 g/dL 08/29/2022 2:37 AM [facility] Hematocrit 20.0(L) 35.0 - 45.0 % 08/29/2022 2:37 AM [facility] MCV 88.9 80.7 - 98.3 fL 08/29/2022 2:37 AM [facility] MCH 28.9 26.7 - 34.0 pg 08/29/2022 2:37 AM [facility] MCHC 32.5 30.8 - 35.9 g/dL 08/29/2022 2:37 AM [facility] RDW-SD 44.9 36.0 - 50.0 fL 08/29/2022 2:37 AM [facility] RDW-CV 13.8 11.2 - 14.8 % 08/29/2022 2:37 AM [facility] Platelet Count 189 150 - 400 10? 3 /uL 08/29/2022 2:37 AM [facility] MPV 9.6 9.4 - 12.9 fL 08/29/2022 2:37 AM [facility] nRBC Absolute 0.02(H) 0 10? 3 /uL 08/29/2022 2:37 AM [facility] nRBC Auto 0.2(H) 0 /100 WBC 08/29/2022 2:37 AM [facility] Blood BLOOD SPECIMEN / Unknown Lab Venipuncture / Unknown 08/29/2022 2:04 AM CDT 08/29/2022 2:31 AM CDT Héctor C Edgell MD LAB - HEMATOLOGY ORD ERABLES [facility] [address] [place] [address], [facility] [phone] * (ABNORMAL) RENAL FUNCTION PANEL (08/28/2022 4:16 AM CDT) BUN 35(H) 7 - 26 mg/dL 08/28/2022 5:01 AM [facility] Creatinine 2.23(H) 0.56 - 0.96 mg/dL 08/28/2022 5:01 AM [facility] Sodium 139 136 - 145 mmol/L 08/28/2022 5:01 AM [facility] Potassium 3.7 3.5 - 4.5 mmol/L 08/28/2022 5:01 AM [facility] Chloride 103 98 - 107 mmol/L 08/28/2022 5:01 AM [facility] CO2 26 22 - 29 mmol/L 08/28/2022 5:01 AM [facility] Glucose 127(H) 70 - 115 mg/dL 08/28/2022 5:01 AM [facility] Albumin 2.7(L) 3.4 - 5.0 g/dL 08/28/2022 5:01 AM [facility] Calcium 9.0 8.4 - 10.2 mg/dL 08/28/2022 5:01 AM [facility] Phosphorus 2.6(L) 2.9 - 5.1 mg/dL 08/28/2022 5:01 AM [facility] Anion Gap 14 8 - 18 08/28/2022 5:01 AM [facility] BUN/Creatinine Ratio 16 7 - 23 08/28/2022 5:01 AM [facility] Osmolality Calculated 298 270 - 300 mOsm/kg 08/28/2022 5:01 AM [facility] eGFR by CKD-EPI 22(L) >=90 mL/min/1.7 3 m2 08/28/2022 5:01 AM [facility] Blood BLOOD SPECIMEN / Unknown Lab Venipuncture / Unknown 08/28/2022 4:16 AM CDT 08/28/2022 4:33 AM CDT Ashvin Barber MD LAB - CHEMISTRY PATRICIA CASIANO Performing Organization Address City/[facility]/ZIP Co de Phone Number [address] [address], [facility] [phone] * MAGNESIUM BLOOD (08/28/2022 4:16 AM CDT) Pathologist [facility] Magnesium 2.0 1.6 - 2.6 mg/dL 08/28/2022 5:01 AM T [facility] Blood BLOOD SPECIMEN / Unknown Lab Venipuncture / Unknown 08/28/2022 4:16 AM CDT 08/28/2022 4:33 AM CDT Héctor Silva MD LAB - CHEMISTRY PATRICIA CASIANO Performing Organization Address [facility]/ZIP Co de Phone Number [address] [address], [facility] [phone] * (ABNORMAL) CBC W/O DIFFERENTIAL (08/28/2022 4:16 AM CDT) Pathologist [facility] WBC 8.5 3.5 - 10.5 10? 3 /uL 08/28/2022 4:42 AM [facility] RBC 2.44(L) 3.80 - 5.20 10? 6 /uL 08/28/2022 4:42 AM [facility] Hemoglobin 7.1(L) 12.0 - 15.6 g/dL 08/28/2022 4:42 AM [facility] Hematocrit 21.9(L) 35.0 - 45.0 % 08/28/2022 4:42 AM [facility] MCV 89.8 80.7 - 98.3 fL 08/28/2022 4:42 AM [facility] MCH 29.1 26.7 - 34.0 pg 08/28/2022 4:42 AM [facility] MCHC 32.4 30.8 - 35.9 g/dL 08/28/2022 4:42 AM [facility] RDW-SD 45.7 36.0 - 50.0 fL 08/28/2022 4:42 AM [facility] RDW-CV 13.9 11.2 - 14.8 % 08/28/2022 4:42 AM [facility] Platelet Count 197 150 - 400 10? 3 /uL 08/28/2022 4:42 AM [facility] MPV 9.7 9.4 - 12.9 fL 08/28/2022 4:42 AM [facility] nRBC Absolute 0.04(H) 0 10? 3 /uL 08/28/2022 4:42 AM [facility] nRBC Auto 0.5(H) 0 /100 WBC 08/28/2022 4:42 AM [facility] Blood BLOOD SPECIMEN / Unknown Lab Venipuncture / Unknown 08/28/2022 4:16 AM CDT 08/28/2022 4:33 AM T Héctor Silva MD LAB - HEMATOLOGY ORD ERABLES [facility] [address] [place] [address], [facility] [phone] * (ABNORMAL) RENAL FUNCTION PANEL (08/27/2022 4:39 AM CDT) BUN 41(H) 7 - 26 mg/dL 08/27/2022 5:15 AM [facility] Creatinine 2.57(H) 0.56 - 0.96 mg/dL 08/27/2022 5:15 AM [facility] Sodium 139 136 - 145 mmol/L 08/27/2022 5:15 AM [facility] Potassium 3.4(L) 3.5 - 4.5 mmol/L 08/27/2022 5:15 AM [facility] Chloride 100 98 - 107 mmol/L 08/27/2022 5:15 AM [facility] CO2 29 22 - 29 mmol/L 08/27/2022 5:15 AM [facility] Glucose 137(H) 70 - 115 mg/dL 08/27/2022 5:15 AM [facility] Albumin 2.6(L) 3.4 - 5.0 g/dL 08/27/2022 5:15 AM [facility] Calcium 8.7 8.4 - 10.2 mg/dL 08/27/2022 5:15 AM [facility] Phosphorus 2.9 2.9 - 5.1 mg/dL 08/27/2022 5:15 AM [facility] Anion Gap 13 8 - 18 08/27/2022 5:15 AM [facility] BUN/Creatinine Ratio 16 7 - 23 08/27/2022 5:15 AM [facility] Osmolality Calculated 300 270 - 300 mOsm/kg 08/27/2022 5:15 AM [facility] eGFR by CKD-EPI 18(L) >=90 mL/min/1.7 3 m2 08/27/2022 5:15 AM [facility] Blood BLOOD SPECIMEN / Unknown Line Draw / Unknown 08/27/2022 4:39 AM CDT 08/27/2022 4:43 AM CDT Héctor Silva MD LAB - CHEMISTRY PATRICIA CASIANO [address] [address], [facility] [phone] * MAGNESIUM BLOOD (08/27/2022 4:39 AM CDT) Magnesium 2.0 1.6 - 2.6 mg/dL 08/27/2022 5:11 AM T [facility] Blood BLOOD SPECIMEN / Unknown Line Draw / Unknown 08/27/2022 4:39 AM CDT 08/27/2022 4:43 AM CDT Héctor Silva MD LAB - CHEMISTRY PATRICIA CASIANO [address] [address], [place] [phone] * (ABNORMAL) PT-INR [facility] (08/27/2022 4:39 AM CDT) PT 11.8(L) 12.1 - 14.8 Seconds 08/27/2022 5:09 AM [facility] INR 0.9 See Comment 08/27/2022 5:09 AM [facility] Comment:The suggested therap eutic range for standard coumadin (warfarin) therapy is an INR of 2.0-3.0. For high-risk patients (Mechanical Mitral Valve Prosthesis, etc.), the suggested prophylactic therapeutic range is an INR of 2.5-3.5. Blood BLOOD SPECIMEN / Unknown Line Draw / Unknown 08/27/2022 4:39 AM CDT 08/27/2022 4:43 AM CDT Héctor Silva MD LAB - COAGULATION OR DERABLES Performing Organization Address [facility]/State/[facility] Co de Phone Number [address] [address] [phone] * (ABNORMAL) CBC W/O DIFFERENTIAL (08/27/2022 4:39 AM CDT) WBC 8.4 3.5 - 10.5 10? 3 /uL 08/27/2022 4:52 AM [facility] RBC 2.49(L) 3.80 - 5.20 10? 6 /uL 08/27/2022 4:52 AM [facility] Hemoglobin 7.1(L) 12.0 - 15.6 g/dL 08/27/2022 4:52 AM [facility] Hematocrit 21.9(L) 35.0 - 45.0 % 08/27/2022 4:52 AM [facility] MCV 88.0 80.7 - 98.3 fL 08/27/2022 4:52 AM [facility] MCH 28.5 26.7 - 34.0 pg 08/27/2022 4:52 AM [facility] MCHC 32.4 30.8 - 35.9 g/dL 08/27/2022 4:52 AM [facility] RDW-SD 45.1 36.0 - 50.0 fL 08/27/2022 4:52 AM CDT [facility] RDW-CV 14.1 11.2 - 14.8 % 08/27/2022 4:52 AM [facility] Platelet Count 193 150 - 400 10? 3 /uL 08/27/2022 4:52 AM T [facility] MPV 9.5 9.4 - 12.9 fL 08/27/2022 4:52 AM T [facility] nRBC Absolute 0.03(H) 0 10? 3 /uL 08/27/2022 4:52 AM T [facility] nRBC Auto 0.4(H) 0 /100 WBC 08/27/2022 4:52 AM T [facility] Blood BLOOD SPECIMEN / Unknown Line Draw / Unknown 08/27/2022 4:39 AM CDT 08/27/2022 4:43 AM CDT Héctor Silva MD LAB - HEMATOLOGY ORD ERABLES [address] [address], [place] [phone] * (ABNORMAL) GLUCOSE - POINT OF CARE (08/26/2022 11:48 PM CDT) Glucose WB/POC 148(H) 70 - 115 mg/dL 08/27/2022 4:21 AM T [facility] Specimen Type Cap Fingerstick 2021 4:21 AM CDT [facility] Blood BLOOD SPECIMEN / Unknown 08/26/2022 11:48 PM CDT 08/27/2022 4:21 AM CDT Ashvin Barber MD LAB - POINT OF CARE ORDERABLES [address] [address], [place] [phone] * (ABNORMAL) GLUCOSE - POINT OF CARE (08/26/2022 6:52 PM CDT) Glucose WB/POC 150(H) 70 - 115 mg/dL 08/26/2022 6:58 PM [facility] Specimen Type Cap Fingerstick 2021 6:58 PM [facility] Blood BLOOD SPECIMEN / Unknown 08/26/2022 6:52 PM CDT 08/26/2022 6:58 PM CDT Ashvin Barber MD LAB - POINT OF CARE ORDERABLES [facility] [address] [place] [address], [facility] [phone] * (ABNORMAL) RENAL FUNCTION PANEL (08/26/2022 3:33 PM CDT) BUN 29(H) 7 - 26 mg/dL 08/26/2022 4:13 PM [facility] Creatinine 1.91(H) 0.56 - 0.96 mg/dL 08/26/2022 4:13 PM [facility] Sodium 142 136 - 145 mmol/L 08/26/2022 4:13 PM [facility] Potassium 2.6(L) 3.5 - 4.5 mmol/L 08/26/2022 4:13 PM [facility] Chloride 107 98 - 107 mmol/L 08/26/2022 4:13 PM [facility] CO2 24 22 - 29 mmol/L 08/26/2022 4:13 PM [facility] Glucose 124(H) 70 - 115 mg/dL 08/26/2022 4:13 PM [facility] Albumin 2.0(L) 3.4 - 5.0 g/dL 08/26/2022 4:13 PM [facility] Calcium 6.7(L) 8.4 - 10.2 mg/dL 08/26/2022 4:13 PM [facility] Phosphorus 2.3(L) 2.9 - 5.1 mg/dL 08/26/2022 4:13 PM [facility] Anion Gap 14 8 - 18 08/26/2022 4:13 PM [facility] BUN/Creatinine Ratio 15 7 - 23 08/26/2022 4:13 PM [facility] Osmolality Calculated 301(H) 270 - 300 mOsm/kg 08/26/2022 4:13 PM [facility] eGFR by CKD-EPI 26(L) >=90 mL/min/1.7 3 m2 08/26/2022 4:13 PM [facility] Blood BLOOD SPECIMEN / Unknown Venipuncture / Unknown 08/26/2022 3:33 PM CDT 08/26/2022 3:42 PM CDT Héctor Silva MD LAB - CHEMISTRY PATRICIA CASIANO [facility] Organization Address City/State/ZIP Co de Phone Number [facility] [address] [place] [address], [facility] [phone] * (ABNORMAL) RENAL FUNCTION PANEL (08/26/2022 3:30 AM CDT) BUN 27(H) 7 - 26 mg/dL 08/26/2022 4:05 AM [facility] Creatinine 1.91(H) 0.56 - 0.96 mg/dL 08/26/2022 4:05 AM [facility] Sodium 139 136 - 145 mmol/L 08/26/2022 4:05 AM [facility] Potassium 3.2(L) 3.5 - 4.5 mmol/L 08/26/2022 4:05 AM [facility] Chloride 99 98 - 107 mmol/L 08/26/2022 4:05 AM [facility] CO2 31(H) 22 - 29 mmol/L 08/26/2022 4:05 AM [facility] Glucose 144(H) 70 - 115 mg/dL 08/26/2022 4:05 AM [facility] Albumin 2.6(L) 3.4 - 5.0 g/dL 08/26/2022 4:05 AM [facility] Calcium 8.2(L) 8.4 - 10.2 mg/dL 08/26/2022 4:05 AM [facility] Phosphorus 2.3(L) 2.9 - 5.1 mg/dL 08/26/2022 4:05 AM T [facility] Anion Gap 12 8 - 18 08/26/2022 4:05 AM [facility] BUN/Creatinine Ratio 14 7 - 23 08/26/2022 4:05 AM [facility] Osmolality Calculated 296 270 - 300 mOsm/kg 08/26/2022 4:05 AM [facility] eGFR by CKD-EPI 26(L) >=90 mL/min/1.7 3 m2 08/26/2022 4:05 AM T [facility] Blood BLOOD SPECIMEN / Unknown Venipuncture / Unknown 08/26/2022 3:30 AM CDT 08/26/2022 3:36 AM CDT Héctor Silva MD LAB - CHEMISTRY PATRICIA CASIANO Performing Organization Address City/[facility]/ZIP Co de Phone Number [facility] [address] [place] [address], [facility] [phone] * MAGNESIUM BLOOD (08/26/2022 3:30 AM CDT) Magnesium 1.8 1.6 - 2.6 mg/dL 08/26/2022 4:05 AM T [facility] Blood BLOOD SPECIMEN / Unknown Venipuncture / Unknown 08/26/2022 3:30 AM CDT 08/26/2022 3:36 AM CDT Héctor Silva MD LAB - CHEMISTRY PATRICIA CASIANO [facility] [address] [place] [address], [place] [phone] * PT-INR [facility] (08/26/2022 3:30 AM CDT) PT 12.9 12.1 - 14.8 Seconds 08/26/2022 4:01 AM T [facility] INR 1.0 See Comment 08/26/2022 4:01 AM T [facility] Comment:The suggested therap eutic range for standard coumadin (warfarin) therapy is an INR of 2.0-3.0. For high-risk patients (Mechanical Mitral Valve Prosthesis, etc.), the suggested prophylactic therapeutic range is an INR of 2.5-3.5. Blood BLOOD SPECIMEN / Unknown Venipuncture / Unknown 08/26/2022 3:30 AM CDT 08/26/2022 3:36 AM CDT Héctor Silva MD LAB - COAGULATION OR DERABLES Performing Organization Address [facility] Co de Phone Number [facility] [address] [place] [address], [facility] [phone] * (ABNORMAL) CBC W/O DIFFERENTIAL (08/26/2022 3:30 AM CDT) WBC 8.0 3.5 - 10.5 10? 3 /uL 08/26/2022 3:40 AM [facility] RBC 2.57(L) 3.80 - 5.20 10? 6 /uL 08/26/2022 3:40 AM [facility] Hemoglobin 7.3(L) 12.0 - 15.6 g/dL 08/26/2022 3:40 AM [facility] Hematocrit 21.7(L) 35.0 - 45.0 % 08/26/2022 3:40 AM [facility] MCV 84.4 80.7 - 98.3 fL 08/26/2022 3:40 AM [facility] MCH 28.4 26.7 - 34.0 pg 08/26/2022 3:40 AM [facility] MCHC 33.6 30.8 - 35.9 g/dL 08/26/2022 3:40 AM [facility] Platelet Count 193 150 - 400 10? 3 /uL 08/26/2022 3:40 AM [facility] RDW-SD 43.9 36.0 - 50.0 fL 08/26/2022 3:40 AM [facility] RDW-CV 14.2 11.2 - 14.8 % 08/26/2022 3:40 AM [facility] MPV 9.5 9.4 - 12.9 fL 08/26/2022 3:40 AM CDT [facility] nRBC Absolute 0.00 0 10? 3 /uL 08/26/2022 3:40 AM CDT [facility] nRBC Auto 0.0 0 /100 WBC 08/26/2022 3:40 AM CDT [facility] Blood BLOOD SPECIMEN / Unknown Venipuncture / Unknown 08/26/2022 3:30 AM CDT 08/26/2022 3:36 AM CDT Héctor Silva MD LAB - HEMATOLOGY ORD ERABLES [facility] [address] [place] [id number], [place] [phone] * (ABNORMAL) GLUCOSE - POINT OF CARE (08/26/2022 12:10 AM CDT) Glucose WB/POC 129(H) 70 - 115 mg/dL 08/26/2022 12:15 AM CDT [facility] Specimen Type Cap Fingerstick 2021 12:15 AM CDT [facility] Blood BLOOD SPECIMEN / Unknown 08/26/2022 12:10 AM CDT 08/26/2022 12:15 AM CDT Ashvin Barber MD LAB - POINT OF CARE ORDERABLES Performing Organization Address City/[facility]/ZIP Co de Phone Number [facility] [address] [place] [address], [place] [phone] * (ABNORMAL) GLUCOSE - POINT OF CARE (08/25/2022 6:17 PM CDT) Glucose WB/POC 144(H) 70 - 115 mg/dL 08/25/2022 6:22 PM CDT [facility] Specimen Type Venous 08/25/2022 6:22 PM CDT [facility] Blood BLOOD SPECIMEN / Unknown 08/25/2022 6:17 PM CDT 08/25/2022 6:22 PM CDT Ashvin Barber MD LAB - POINT OF CARE ORDERABLES [facility] [address] [place] [address], [facility] [phone] * (ABNORMAL) BASIC METABOLIC PANEL (CALCIUM TOTAL) (08/25/2022 4:12 PM CDT) BUN 17 7 - 26 mg/dL 08/25/2022 5:00 PM [facility] Creatinine 1.42(H) 0.56 - 0.96 mg/dL 08/25/2022 5:00 PM [facility] Sodium 140 136 - 145 mmol/L 08/25/2022 5:00 PM [facility] Potassium 3.7 3.5 - 4.5 mmol/L 08/25/2022 5:00 PM [facility] Chloride 99 98 - 107 mmol/L 08/25/2022 5:00 PM [facility] CO2 28 22 - 29 mmol/L 08/25/2022 5:00 PM [facility] Glucose 122(H) 70 - 115 mg/dL 08/25/2022 5:00 PM [facility] Calcium 8.0(L) 8.4 - 10.2 mg/dL 08/25/2022 5:00 PM [facility] Anion Gap 17 8 - 18 08/25/2022 5:00 PM [facility] BUN/Creatinine Ratio 12 7 - 23 08/25/2022 5:00 PM [facility] Osmolality Calculated 293 270 - 300 mOsm/kg 08/25/2022 5:00 PM [facility] eGFR by CKD-EPI 37(L) >=90 mL/min/1.7 3 m2 08/25/2022 5:00 PM [facility] Blood BLOOD SPECIMEN / Unknown Venipuncture / Unknown 08/25/2022 4:12 PM CDT 08/25/2022 4:32 PM CDT Ashvin Barber MD LAB - CHEMISTRY ORDE STEPHENIE [facility] [address] [place] [address] [phone] * (ABNORMAL) RENAL FUNCTION PANEL (08/25/2022 4:12 PM CDT) BUN 17 7 - 26 mg/dL 08/25/2022 5:04 PM [facility] Creatinine 1.42(H) 0.56 - 0.96 mg/dL 08/25/2022 5:04 PM [facility] Sodium 140 136 - 145 mmol/L 08/25/2022 5:04 PM [facility] Potassium 3.7 3.5 - 4.5 mmol/L 08/25/2022 5:04 PM [facility] Chloride 99 98 - 107 mmol/L 08/25/2022 5:04 PM [facility] CO2 28 22 - 29 mmol/L 08/25/2022 5:04 PM [facility] Glucose 122(H) 70 - 115 mg/dL 08/25/2022 5:04 PM [facility] Albumin 2.6(L) 3.4 - 5.0 g/dL 08/25/2022 5:04 PM [facility] Calcium 8.0(L) 8.4 - 10.2 mg/dL 08/25/2022 5:04 PM [facility] Phosphorus 2.5(L) 2.9 - 5.1 mg/dL 08/25/2022 5:04 PM [facility] Anion Gap 17 8 - 18 08/25/2022 5:04 PM [facility] BUN/Creatinine Ratio 12 7 - 23 08/25/2022 5:04 PM [facility] Osmolality Calculated 293 270 - 300 mOsm/kg 08/25/2022 5:04 PM [facility] eGFR by CKD-EPI 37(L) >=90 mL/min/1.7 3 m2 08/25/2022 5:04 PM [facility] Blood BLOOD SPECIMEN / Unknown Venipuncture / Unknown 08/25/2022 4:12 PM CDT 08/25/2022 4:32 PM T Héctor Silva MD LAB - CHEMISTRY PATRICIA CASIANO Performing Organization Address [facility]/ZIP Co de Phone Number [address] [address], [place] [phone] * (ABNORMAL) POTASSIUM WHOLE BLD (08/25/2022 1:20 PM CDT) [facility] Potassium Whole Blood 3.4(L) 3.5 - 5.5 mmol/L 08/25/2022 1:31 PM CDT [facility] Blood WHOLE BLOOD SPECIMEN / Unknown Venipuncture / Unknown 08/25/2022 1:20 PM CDT 08/25/2022 1:23 PM CDT Jayna Masters MD LAB - CHEMISTRY PATRICIA CASIANO Performing Organization Address [facility]/ZIP Co de Phone Number [address] [address], [place] [phone] * MRSA DNA PCR (08/25/2022 1:18 PM CDT) [facility] MRSA DNA by PCR Not detected Not detected 08/25/2022 6:10 PM CDT [facility]CRO[facility] Microbiology SPECIMEN FROM NASAL FOSSAE / Unknown Collection / Unknown 08/25/2022 1:18 PM CDT 08/25/2022 1:23 PM CDT Narrative [facility] - 08/25/2022 6:10 PM CDT Methicillin-resistant Staphylococcus aureus (MRSA) DNA is not detected (presumed not colonized with MRSA). Héctor Silva MD LAB - MICROBIOLOGY O RDERABLES Performing Organization Address City/[facility]/ZIP Co de Phone Number [facility] [address] [place] [address], [place] [phone] * IR CENTRAL LINE INSERT TUNNEL (08/25/2022 [...] DATE/TIME OF EXAM: ??08/25/2022 12:32 PM, LOCATION ??[facility] INDICATION: N18.30: Stage 3 chronic kidney disease, unspecified whether stage 3a or 3b CKD ([facility]/HCC) N17.9: Acute renal failure, unspecified acute renal failure type ([facility]) ADDITIONAL CLINICAL INFORMATION: Ordering Provider Reason [...] TUNNEL, DATE/TIME OF EXAM:08/25/2022 12:32 PM, LOCATION [facility] INDICATION: N18.30: Stage 3 chronic kidney [...] 7 - 26 mg/dL 08/25/2022 4:09 AM [facility] Creatinine 1.83(H) 0.56 - 0.96 mg/dL 08/25/2022 4:09 AM [facility] Sodium 141 136 - 145 mmol/L 08/25/2022 4:09 AM [facility] Potassium 2.9(L) 3.5 - 4.5 mmol/L 08/25/2022 4:09 AM [facility] Chloride 99 98 - 107 mmol/L 08/25/2022 4:09 AM [facility] CO2 29 22 - 29 mmol/L 08/25/2022 4:09 AM [facility] Glucose 102 70 - 115 mg/dL 08/25/2022 4:09 AM [facility] Albumin 2.7(L) 3.4 - 5.0 g/dL 08/25/2022 4:09 AM [facility] Calcium 8.5 8.4 - 10.2 mg/dL 08/25/2022 4:09 AM [facility] Phosphorus 1.6(L) 2.9 - 5.1 mg/dL 08/25/2022 4:09 AM T [facility] Anion Gap 16 8 - 18 08/25/2022 4:09 AM [facility] BUN/Creatinine Ratio 13 7 - 23 08/25/2022 4:09 AM T [facility] Osmolality Calculated 296 270 - 300 mOsm/kg 08/25/2022 4:09 AM [facility] eGFR by CKD-EPI 28(L) >=90 mL/min/1.7 3 m2 08/25/2022 4:09 AM T [facility] Blood BLOOD SPECIMEN / Unknown Venipuncture / Unknown 08/25/2022 3:38 AM CDT 08/25/2022 3:41 AM CDT Héctor Silva MD LAB - CHEMISTRY PATRICIA CASIANO Performing Organization Address City/[facility]/ZIP Co de Phone Number [address] [address], [facility] [phone] * MAGNESIUM BLOOD (08/25/2022 3:38 AM CDT) Magnesium 1.8 1.6 - 2.6 mg/dL 08/25/2022 4:07 AM T [facility] Blood BLOOD SPECIMEN / Unknown Venipuncture / Unknown 08/25/2022 3:38 AM CDT 08/25/2022 3:41 AM CDT Héctor Silva MD LAB - CHEMISTRY PATRICIA CASIANO [address] [address], [place] [phone] * PT-INR [facility] (08/25/2022 3:38 AM CDT) PT 12.3 12.1 - 14.8 Seconds 08/25/2022 4:04 AM T [facility] INR 0.9 See Comment 08/25/2022 4:04 AM T [facility] Comment:The suggested therap eutic range for standard coumadin (warfarin) therapy is an INR of 2.0-3.0. For high-risk patients (Mechanical Mitral Valve Prosthesis, etc.), the suggested prophylactic therapeutic range is an INR of 2.5-3.5. Blood BLOOD SPECIMEN / Unknown Venipuncture / Unknown 08/25/2022 3:38 AM CDT 08/25/2022 3:41 AM CDT Héctor Silva MD LAB - COAGULATION OR DERABLES [facility] [address] [place] [address], [facility] [phone] * (ABNORMAL) CBC W/O DIFFERENTIAL (08/25/2022 3:38 AM CDT) WBC 8.9 3.5 - 10.5 10? 3 /uL 08/25/2022 3:45 AM [facility] RBC 2.78(L) 3.80 - 5.20 10? 6 /uL 08/25/2022 3:45 AM [facility] Hemoglobin 7.9(L) 12.0 - 15.6 g/dL 08/25/2022 3:45 AM [facility] Hematocrit 22.7(L) 35.0 - 45.0 % 08/25/2022 3:45 AM [facility] MCV 81.7 80.7 - 98.3 fL 08/25/2022 3:45 AM [facility] MCH 28.4 26.7 - 34.0 pg 08/25/2022 3:45 AM [facility] MCHC 34.8 30.8 - 35.9 g/dL 08/25/2022 3:45 AM [facility] Platelet Count 208 150 - 400 10? 3 /uL 08/25/2022 3:45 AM [facility] RDW-SD 41.0 36.0 - 50.0 fL 08/25/2022 3:45 AM [facility] RDW-CV 13.9 11.2 - 14.8 % 08/25/2022 3:45 AM [facility] MPV 9.4 9.4 - 12.9 fL 08/25/2022 3:45 AM CDT [facility] nRBC Absolute 0.00 0 10? 3 /uL 08/25/2022 3:45 AM CDT [facility] nRBC Auto 0.0 0 /100 WBC 08/25/2022 3:45 AM CDT [facility] Blood BLOOD SPECIMEN / Unknown Venipuncture / Unknown 08/25/2022 3:38 AM CDT 08/25/2022 3:41 AM CDT Héctor Silva MD LAB - HEMATOLOGY ORD ERABLES [address] [address], [place] [phone] * (ABNORMAL) GLUCOSE - POINT OF CARE (08/25/2022 1:28 AM CDT) Pathologist [facility] Glucose WB/POC 123(H) 70 - 115 mg/dL 08/25/2022 1:32 AM CDT [facility] Specimen Type Cap Fingerstick 2021 1:32 AM CDT [facility] Blood BLOOD SPECIMEN / Unknown 08/25/2022 1:28 AM CDT 08/25/2022 1:32 AM CDT Ashvin Barber MD LAB - POINT OF CARE ORDERABLES [address] [address], [place] [phone] * XR CHEST 1VW PORTABLE (08/24/2022 6:26 PM CDT) Anatomical Region Laterality Modality Chest Radiographic Marychuy ging 08/25/2022 8:43 AM CDT Narrative 08/25/2022 1:50 PM CDT PROCEDURE: ??XR CHEST 1VW PORTABLE, DATE/TIME OF EXAM: ??08/24/2022 6:26 PM, LOCATION ??[facility] INDICATION: J20.9: Acute bronchitis, unspecified organism [...] Report dictated by Heath Wu MD, MD (residential child care counselor). INarciso MD have personally reviewed and interpreted this examination/study. > Interpreting Provider: Narciso Oseguera MD on 08/25/2022 1:50 PM Procedure Note Narciso Oseguera MD - 08/25/2022 PROCEDURE: XR CHEST 1VW PORTABLE, DATE/TIME OF EXAM: 08/24/2022 6:26PM, LOCATION [facility] INDICATION: J20.9: Acute bronchitis, unspecified organism [...] Report dictated by Heath Wu MD, MD (residential child care counselor). Narciso Hester MD have personally reviewed and interpreted this examination/study. > Interpreting Provider: Narciso Oseguera MD on 08/25/2022 1:50 PM Ashvin Barber MD DIAGNOSTIC IMAGING O RDERABLES * (ABNORMAL) RENAL FUNCTION PANEL (08/24/2022 4:36 PM CDT) BUN 50(H) 7 - 26 mg/dL 08/24/2022 5:20 PM [facility] Creatinine 3.08(H) 0.56 - 0.96 mg/dL 08/24/2022 5:20 PM [facility] Sodium 136 136 - 145 mmol/L 08/24/2022 5:20 PM [facility] Potassium 3.2(L) 3.5 - 4.5 mmol/L 08/24/2022 5:20 PM [facility] Chloride 99 98 - 107 mmol/L 08/24/2022 5:20 PM [facility] CO2 23 22 - 29 mmol/L 08/24/2022 5:20 PM [facility] Glucose 161(H) 70 - 115 mg/dL 08/24/2022 5:20 PM [facility] Albumin 2.6(L) 3.4 - 5.0 g/dL 08/24/2022 5:20 PM [facility] Calcium 8.6 8.4 - 10.2 mg/dL 08/24/2022 5:20 PM [facility] Phosphorus 4.5 2.9 - 5.1 mg/dL 08/24/2022 5:20 PM [facility] Anion Gap 17 8 - 18 08/24/2022 5:20 PM [facility] BUN/Creatinine Ratio 16 7 - 23 08/24/2022 5:20 PM [facility] Osmolality Calculated 299 270 - 300 mOsm/kg 08/24/2022 5:20 PM [facility] eGFR by CKD-EPI 15(L) >=90 mL/min/1.7 3 m2 08/24/2022 5:20 PM [facility] Blood BLOOD SPECIMEN / Unknown Venipuncture / Unknown 08/24/2022 4:36 PM CDT 08/24/2022 4:49 PM CDT Héctor Silva MD LAB - CHEMISTRY PATRICIA CASIANO [facility] [address] [place] [address], [facility] [phone] * (ABNORMAL) GLUCOSE - POINT OF CARE (08/24/2022 12:16 PM CDT) Glucose WB/POC 136(H) 70 - 115 mg/dL 08/24/2022 12:21 PM CDT [facility] Specimen Type Cap Fingerstick 2021 12:21 PM CDT [facility] Blood BLOOD SPECIMEN / Unknown 08/24/2022 12:16 PM CDT 08/24/2022 12:21 PM CDT Ashvin Barber MD LAB - POINT OF CARE ORDERABLES [facility] [address] [place] [address], [facility] [phone] * XR CHEST 1VW PORTABLE (08/24/2022 5:01 AM CDT) Anatomical Region Laterality Modality Chest Radiographic Marychuy ging 08/24/2022 1:46 PM CDT Narrative 08/24/2022 1:54 PM CDT PROCEDURE: ??XR CHEST 1VW PORTABLE, DATE/TIME OF EXAM: ??08/24/2022 5:01 AM, LOCATION ??[facility] INDICATION: N17.9: Acute renal failure, unspecified [...] noted. > Dictated by Ron Marvin MD (residential child care counselor) I, Narciso Oseguera MD have personally reviewed and interpreted this examination/study. > Interpreting Provider: Narciso Oseguera MD on 08/24/2022 1:54 PM Procedure Note Narciso Oseguera MD - 08/24/2022 PROCEDURE: XR CHEST 1VW PORTABLE, DATE/TIME OF EXAM: 08/24/2022 5:01AM, LOCATION [facility] INDICATION: N17.9: Acute renal failure, unspecified [...] noted. > Dictated by Ron Marvin MD (residential child care counselor) I, Narciso Oseguera MD have personally reviewed and interpreted this examination/study. > Interpreting Provider: Narciso Oseguera MD on 08/24/2022 1:54 PM Ashvin Barber MD DIAGNOSTIC IMAGING O RDERABLES * (ABNORMAL) RENAL FUNCTION PANEL (08/24/2022 2:31 AM CDT) BUN 41(H) 7 - 26 mg/dL 08/24/2022 3:05 AM [facility] Creatinine 2.72(H) 0.56 - 0.96 mg/dL 08/24/2022 3:05 AM [facility] Sodium 135(L) 136 - 145 mmol/L 08/24/2022 3:05 AM [facility] Potassium 3.4(L) 3.5 - 4.5 mmol/L 08/24/2022 3:05 AM [facility] Chloride 97(L) 98 - 107 mmol/L 08/24/2022 3:05 AM [facility] CO2 21(L) 22 - 29 mmol/L 08/24/2022 3:05 AM [facility] Glucose 119(H) 70 - 115 mg/dL 08/24/2022 3:05 AM [facility] Albumin 2.8(L) 3.4 - 5.0 g/dL 08/24/2022 3:05 AM [facility] Calcium 8.6 8.4 - 10.2 mg/dL 08/24/2022 3:05 AM [facility] Phosphorus 4.7 2.9 - 5.1 mg/dL 08/24/2022 3:05 AM [facility] Anion Gap 20(H) 8 - 18 08/24/2022 3:05 AM [facility] BUN/Creatinine Ratio 15 7 - 23 08/24/2022 3:05 AM [facility] Osmolality Calculated 291 270 - 300 mOsm/kg 08/24/2022 3:05 AM [facility] eGFR by CKD-EPI 17(L) >=90 mL/min/1.7 3 m2 08/24/2022 3:05 AM [facility] Blood BLOOD SPECIMEN / Unknown Venipuncture / Unknown 08/24/2022 2:31 AM CDT 08/24/2022 2:40 AM CDT Héctor Silva MD LAB - CHEMISTRY PATRICIA CASIANO [address] [address], [facility] [phone] * MAGNESIUM BLOOD (08/24/2022 2:31 AM CDT) Magnesium 2.0 1.6 - 2.6 mg/dL 08/24/2022 3:05 AM T [facility] Blood BLOOD SPECIMEN / Unknown Venipuncture / Unknown 08/24/2022 2:31 AM CDT 08/24/2022 2:40 AM CDT Héctor Silva MD LAB - CHEMISTRY PATRICIA CASIANO [address] [place] [address], [facility] [phone] * PT-INR [facility] (08/24/2022 2:31 AM CDT) [facility] PT 12.3 12.1 - 14.8 Seconds 08/24/2022 3:01 AM CDT [facility] INR 0.9 See Comment 08/24/2022 3:01 AM T [facility] Comment:The suggested therap eutic range for standard coumadin (warfarin) therapy is an INR of 2.0-3.0. For high-risk patients (Mechanical Mitral Valve Prosthesis, etc.), the suggested prophylactic therapeutic range is an INR of 2.5-3.5. Blood BLOOD SPECIMEN / Unknown Venipuncture / Unknown 08/24/2022 2:31 AM CDT 08/24/2022 2:40 AM CDT Héctor Silva MD LAB - COAGULATION OR DERABLES Performing Organization Address City/State/[facility] Co de Phone Number [facility] [address] [place] [address], [facility] [phone] * (ABNORMAL) CBC W/O DIFFERENTIAL (08/24/2022 2:31 AM CDT) [facility] WBC 9.1 3.5 - 10.5 10? 3 /uL 08/24/2022 2:45 AM [facility] RBC 2.59(L) 3.80 - 5.20 10? 6 /uL 08/24/2022 2:45 AM [facility] Hemoglobin 7.2(L) 12.0 - 15.6 g/dL 08/24/2022 2:45 AM [facility] Hematocrit 21.5(L) 35.0 - 45.0 % 08/24/2022 2:45 AM [facility] MCV 83.0 80.7 - 98.3 fL 08/24/2022 2:45 AM T [facility] MCH 27.8 26.7 - 34.0 pg 08/24/2022 2:45 AM T [facility] MCHC 33.5 30.8 - 35.9 g/dL 08/24/2022 2:45 AM CDT [facility] Platelet Count 192 150 - 400 10? 3 /uL 08/24/2022 2:45 AM CDT [facility] RDW-SD 41.2 36.0 - 50.0 fL 08/24/2022 2:45 AM CDT [facility] RDW-CV 13.7 11.2 - 14.8 % 08/24/2022 2:45 AM CDT [facility] MPV 9.6 9.4 - 12.9 fL 08/24/2022 2:45 AM CDT [facility] nRBC Absolute 0.00 0 10? 3 /uL 08/24/2022 2:45 AM CDT [facility] nRBC Auto 0.0 0 /100 WBC 08/24/2022 2:45 AM CDT [facility] Blood BLOOD SPECIMEN / Unknown Venipuncture / Unknown 08/24/2022 2:31 AM CDT 08/24/2022 2:40 AM CDT Héctor Silva MD LAB - HEMATOLOGY ORD ERABLES [facility] [address] [place] [address], [facility] [phone] * HEPATITIS B SURFACE ANTIBODY QUANT (08/23/2022 8:22 PM CDT) [facility] Hepatitis B Virus Surface Antibody 3.26 IU/L 08/25/2022 1:45 PM CDT [facility] ([facility]) Comment: The anti-HBs is less than [...] Cellular and Tissue-Based Products (HCT/P). Performed By: [id number] [address] [place] [address] Ecological Risk Assessor: Rene Rodas MD, PhD Blood BLOOD SPECIMEN / Unknown Line Draw / Unknown 08/23/2022 8:22 PM CDT 08/23/2022 9:39 PM CDT Josh Harrell MD LAB - SEROLOGY ORDER JULISSA Performing Organization Address City/[facility]/ZIP Co de Phone Number [facility] ([facility]) [address] [place], [place] [address] * HEPATITIS B SURFACE ANTIGEN W RFLX CONFIRMATION (08/23/2022 8:22 PM CDT) Hepatitis B Virus Surface Antigen Non-reacti ve Non-reacti ve 08/23/2022 10:50 PM CDT [facility] Blood BLOOD SPECIMEN / Unknown Line Draw / Unknown 08/23/2022 8:22 PM CDT 08/23/2022 9:39 PM CDT Josh Harrell MD LAB - CHEMISTRY ORDE RABLES Performing Organization Address City/[facility]/ZIP Co de Phone Number [address] [address], [facility] [phone] * XR CHEST 1VW PORTABLE (08/23/2022 5:11 PM CDT) Anatomical Region Laterality Modality Chest Radiographic Marychuy ging 08/24/2022 8:18 AM CDT Narrative 08/24/2022 8:46 AM CDT PROCEDURE: ??XR CHEST 1VW PORTABLE, DATE/TIME OF EXAM: ??08/23/2022 5:11 PM, LOCATION ??[facility] INDICATION: J20.9: Acute bronchitis, unspecified organism [...] Report dictated by Heath Wu MD, MD (residential child care counselor). Pippa Hester MD have personally reviewed and interpreted this examination/study. > Interpreting Provider: Pippa Kong MD on 08/24/2022 8:46 AM Procedure Note Pippa Kong MD - 08/24/2022 PROCEDURE: XR CHEST 1VW PORTABLE, DATE/TIME OF EXAM: 08/23/2022 5:11PM, LOCATION [facility] INDICATION: J20.9: Acute bronchitis, unspecified organism [...] Report dictated by Heath Wu MD, MD (residential child care counselor). Pippa Hester MD have personally reviewed and interpreted this examination/study. > Interpreting Provider: Pippa Kong MD on 28:46 AM Ashvin Barber MD DIAGNOSTIC IMAGING O RDERABLES * (ABNORMAL) RENAL FUNCTION PANEL (08/23/2022 4:29 PM CDT) BUN 69(H) 7 - 26 mg/dL 08/23/2022 5:05 PM [facility] Creatinine 4.06(H) 0.56 - 0.96 mg/dL 08/23/2022 5:05 PM [facility] Sodium 132(L) 136 - 145 mmol/L 08/23/2022 5:05 PM [facility] Potassium 3.8 3.5 - 4.5 mmol/L 08/23/2022 5:05 PM [facility] Chloride 102 98 - 107 mmol/L 08/23/2022 5:05 PM [facility] CO2 15(L) 22 - 29 mmol/L 08/23/2022 5:05 PM [facility] Glucose 106 70 - 115 mg/dL 08/23/2022 5:05 PM [facility] Albumin 2.8(L) 3.4 - 5.0 g/dL 08/23/2022 5:05 PM [facility] Calcium 8.8 8.4 - 10.2 mg/dL 08/23/2022 5:05 PM [facility] Phosphorus 8.0(H) 2.9 - 5.1 mg/dL 08/23/2022 5:05 PM [facility] Anion Gap 19(H) 8 - 18 08/23/2022 5:05 PM [facility] BUN/Creatinine Ratio 17 7 - 23 08/23/2022 5:05 PM [facility] Osmolality Calculated 295 270 - 300 mOsm/kg 08/23/2022 5:05 PM [facility] eGFR by CKD-EPI 11(L) >=90 mL/min/1.7 3 m2 08/23/2022 5:05 PM [facility] Blood BLOOD SPECIMEN / Unknown Venipuncture / Unknown 08/23/2022 4:29 PM CDT 08/23/2022 4:40 PM CDT Héctor Silva MD LAB - CHEMISTRY PATRICIA CASIANO [facility] [address] [place] [address], [facility] [phone] * ECHO LIMITED OR FOLLOWUP (08/23/2022 9:34 AM CDT) Anatomical Region Laterality Modality Chest Echo 08/23/2022 9:13 AM CDT Narrative Procedure Note Catarina Dobbins MD - 08/23/2022 Héctor Silva MD ECHOCARDIOGRAPHY RAD IANT * (ABNORMAL) RENAL FUNCTION PANEL (08/23/2022 4:22 AM CDT) BUN 64(H) 7 - 26 mg/dL 08/23/2022 4:53 AM [facility] Creatinine 3.99(H) 0.56 - 0.96 mg/dL 08/23/2022 4:53 AM [facility] Sodium 132(L) 136 - 145 mmol/L 08/23/2022 4:53 AM [facility] Potassium 3.9 3.5 - 4.5 mmol/L 08/23/2022 4:53 AM [facility] Chloride 99 98 - 107 mmol/L 08/23/2022 4:53 AM [facility] CO2 15(L) 22 - 29 mmol/L 08/23/2022 4:53 AM [facility] Glucose 129(H) 70 - 115 mg/dL 08/23/2022 4:53 AM [facility] Albumin 2.9(L) 3.4 - 5.0 g/dL 08/23/2022 4:53 AM [facility] Calcium 9.1 8.4 - 10.2 mg/dL 08/23/2022 4:53 AM [facility] Phosphorus 7.8(H) 2.9 - 5.1 mg/dL 08/23/2022 4:53 AM [facility] Anion Gap 22(H) 8 - 18 08/23/2022 4:53 AM [facility] BUN/Creatinine Ratio 16 7 - 23 08/23/2022 4:53 AM T [facility] Osmolality Calculated 294 270 - 300 mOsm/kg 08/23/2022 4:53 AM T [facility] eGFR by CKD-EPI 11(L) >=90 mL/min/1.7 3 m2 08/23/2022 4:53 AM T [facility] Blood BLOOD SPECIMEN / Unknown Venipuncture / Unknown 08/23/2022 4:22 AM CDT 08/23/2022 4:26 AM CDT Héctor Silva MD LAB - CHEMISTRY PATRICIA CASIANO Performing Organization Address City/[facility]/ZIP Co de Phone Number [facility] [address] [place] [address], [facility] [phone] * MAGNESIUM BLOOD (08/23/2022 4:22 AM CDT) Magnesium 2.2 1.6 - 2.6 mg/dL 08/23/2022 4:53 AM T [facility] Blood BLOOD SPECIMEN / Unknown Venipuncture / Unknown 08/23/2022 4:22 AM CDT 08/23/2022 4:26 AM CDT Héctor Silva MD LAB - CHEMISTRY PATRICIA CASIANO Performing Organization Address [facility]/ZIP Co de Phone Number [facility] [address] [place] [id number], [place] [phone] * PT-INR [facility] (08/23/2022 4:22 AM CDT) PT 13.0 12.1 - 14.8 Seconds 08/23/2022 4:55 AM [facility] INR 1.0 See Comment 08/23/2022 4:55 AM [facility] Comment:The suggested therap eutic range for standard coumadin (warfarin) therapy is an INR of 2.0-3.0. For high-risk patients (Mechanical Mitral Valve Prosthesis, etc.), the suggested prophylactic therapeutic range is an INR of 2.5-3.5. Blood BLOOD SPECIMEN / Unknown Venipuncture / Unknown 08/23/2022 4:22 AM CDT 08/23/2022 4:26 AM CDT Héctor Silva MD LAB - COAGULATION OR DERABLES [facility] [address] [place] [address], [facility] [phone] * (ABNORMAL) CBC W/O DIFFERENTIAL (08/23/2022 4:22 AM CDT) WBC 8.6 3.5 - 10.5 10? 3 /uL 08/23/2022 4:38 AM [facility] RBC 2.61(L) 3.80 - 5.20 10? 6 /uL 08/23/2022 4:38 AM [facility] Hemoglobin 7.5(L) 12.0 - 15.6 g/dL 08/23/2022 4:38 AM [facility] Hematocrit 22.3(L) 35.0 - 45.0 % 08/23/2022 4:38 AM [facility] MCV 85.4 80.7 - 98.3 fL 08/23/2022 4:38 AM [facility] MCH 28.7 26.7 - 34.0 pg 08/23/2022 4:38 AM [facility] MCHC 33.6 30.8 - 35.9 g/dL 08/23/2022 4:38 AM [facility] Platelet Count 184 150 - 400 10? 3 /uL 08/23/2022 4:38 AM [facility] RDW-SD 41.6 36.0 - 50.0 fL 08/23/2022 4:38 AM [facility] RDW-CV 13.4 11.2 - 14.8 % 08/23/2022 4:38 AM [facility] MPV 9.4 9.4 - 12.9 fL 08/23/2022 4:38 AM [facility] nRBC Absolute 0.00 0 10? 3 /uL 08/23/2022 4:38 AM [facility] nRBC Auto 0.0 0 /100 WBC 08/23/2022 4:38 AM CDT [facility] Blood BLOOD SPECIMEN / Unknown Venipuncture / Unknown 08/23/2022 4:22 AM CDT 08/23/2022 4:26 AM CDT Héctor Silva MD LAB - HEMATOLOGY ORD ERABLES [facility] [address] [place] [address], [facility] [phone] * XR CHEST 1VW PORTABLE (08/23/2022 2:49 [...] examination. Report dictated by Heath Wu MD, (residential child care counselor). I, Juwan Aceves have personally reviewed and interpreted this examination/study. > Interpreting Provider: Juwan Aceves on 08/23/2022 9:46 AM Narrative 08/23/2022 9:46 AM CDT PROCEDURE: ??XR CHEST 1VW PORTABLE, DATE/TIME OF EXAM: ??08/23/2022 2:50 AM, LOCATION ??[facility] INDICATION: R06.02: SOB (shortness of breath) [...] PORTABLE, DATE/TIME OF EXAM: 08/23/2022 2:50AM, LOCATION [facility] INDICATION: R06.02: SOB (shortness of breath) [...] Report dictated by Heath Wu MD, MD (residential child care counselor). I, Juwan Aceves have personally reviewed and interpreted this examination/study. > Interpreting Provider: Juwan Aceves on 08/23/2022 9:46 AM Héctor Silva MD DIAGNOSTIC IMAGING O RDERABLES * LACTIC ACID BLOOD (08/22/2022 8:21 PM CDT) Lactic Acid-Stat 0.6 <=2.0 mmol/L 08/22/2022 8:52 PM [facility] Blood BLOOD SPECIMEN / Unknown Venipuncture / Unknown 08/22/2022 8:21 PM CDT 08/22/2022 8:26 PM T Héctor Silva MD LAB - CHEMISTRY PATRICIA CASIANO [facility] Organization Address City/State/ZIP Co de Phone Number [facility] [address] [place] [address], [facility] [phone] * (ABNORMAL) BLOOD GASES ART + COOX PANEL (08/22/2022 6:01 PM CDT) pH Arterial 7.29(L) 7.35 - 7.45 pH 08/22/2022 6:06 PM [facility] pO2 Arterial 66(L) 80 - 100 mmHg 08/22/2022 6:06 PM [facility] pCO2 Arterial 33(L) 35 - 45 mmHg 6:06 PM [facility] HCO3 Arterial 16(L) 20 - 30 mmol/l 08/22/2022 6:06 PM [facility] BE Arterial -9.8(L) -2.0 - 2.0 mmol/L 08/22/2022 6:06 PM [facility] Oxyhemoglobin Arterial 94.7 % 08/22/2022 6:06 PM [facility] Dexoyhemoglobin (HHB) % 3.3 % 08/22/2022 6:06 PM [facility] Methemoglobin <0.8 0.0 - 2.0 % 08/22/2022 6:06 PM [facility] Carboxyhemoglobin 1.7 0.0 - 2.0 % 2021 6:06 PM [facility] O2 Content Arterial 10.3 Interpret within clinical context ml/dL 08/22/2022 6:06 PM [facility] Hemoglobin by COOX 7.7(L) 12.0 - 15.6 g/dL 08/22/2022 6:06 PM [facility] O2 Saturation Arterial 97 90 - 100 % 08/22/2022 6:06 PM CDT [facility] FI O2 Arterial 40.0 % 08/22/2022 6:06 PM CDT [facility] Blood, arterial ARTERIAL BLOOD SPECIMEN / Unknown Arterial Puncture / Unknown 08/22/2022 6:01 PM CDT 08/22/2022 6:04 PM CDT Narrative [facility] - 08/22/2022 6:06 PM CDT Carboxyhemoglobin Normal Concentration: Non-smokers: 0-2%; Smokers: 0-9%; Toxic: >20% Héctor Silva MD LAB - BLOOD GASES OR DERABLES [facility] [address] [place] [address], [facility] [phone] * XR ABDOMEN KUB PORTABLE (08/22/2022 3:42 [...] stomach. Report dictated by German Aponte MD (residential child care counselor). Corey Hester MD have personally reviewed and [...] stomach. Report dictated by German Aponte MD (residential child care counselor). Corey Hester MD have personally reviewed and interpreted this examination/study. > Interpreting Provider: Corey Min MD on 08/22/2022 9:37 PM Héctor Silva MD DIAGNOSTIC IMAGING O RDERABLES * (ABNORMAL) RENAL FUNCTION PANEL (08/22/2022 3:28 PM [facility]) BUN 64(H) 7 - 26 mg/dL 08/22/2022 4:29 PM [facility] Creatinine 3.92(H) 0.56 - 0.96 mg/dL 08/22/2022 4:29 PM [facility] Sodium 130(L) 136 - 145 mmol/L 08/22/2022 4:29 PM [facility] Potassium 3.8 3.5 - 4.5 mmol/L 08/22/2022 4:29 PM [facility] Chloride 98 98 - 107 mmol/L 08/22/2022 4:29 PM [facility] CO2 16(L) 22 - 29 mmol/L 08/22/2022 4:29 PM [facility] Glucose 142(H) 70 - 115 mg/dL 08/22/2022 4:29 PM [facility] Albumin 3.1(L) 3.4 - 5.0 g/dL 08/22/2022 4:29 PM [facility] Calcium 9.3 8.4 - 10.2 mg/dL 08/22/2022 4:29 PM [facility] Phosphorus 7.2(H) 2.9 - 5.1 mg/dL 08/22/2022 4:29 PM [facility] Anion Gap 20(H) 8 - 18 08/22/2022 4:29 PM [facility] BUN/Creatinine Ratio 16 7 - 23 08/22/2022 4:29 PM [facility] Osmolality Calculated 291 270 - 300 mOsm/kg 08/22/2022 4:29 PM [facility] eGFR by CKD-EPI 11(L) >=90 mL/min/1.7 3 m2 08/22/2022 4:29 PM [facility] Blood BLOOD SPECIMEN / Unknown Lab Venipuncture / Unknown 08/22/2022 3:28 PM CDT 08/22/2022 4:02 PM CDT Héctor Silva MD LAB - CHEMISTRY LEOSundeep MARKAMINATA [facility] Organization Address City/State/ZIP Co de Phone Number [phone] [place] [address], [facility] [phone] * FL SWALLOWING FUNCTION STUDY (08/22/2022 2:30 PM CDT) Anatomical Region Laterality Modality Chest Radiographic Marychuy ging 08/22/2022 2:37 PM CDT Impressions 08/22/2022 9:28 PM CDT IMPRESSION: Fluoroscopy was provided for a procedure that was performed by Speech Therapy. Please see the Speech Therapy report for interpretation. Report dictated by German Aponte MD (residential child care counselor) Corey Hester MD have personally reviewed and [...] interpretation. Report dictated by German Aponte MD (residential child care counselor) Corey Hester MD have personally reviewed and [...] DATE/TIME OF EXAM: ??08/22/2022 1:41 PM, LOCATION ??[facility] INDICATION: I60.9: Subarachnoid hemorrhage (CMS/HCC) ADDITIONAL [...] DATE/TIME OF EXAM: 08/22/2022 1:41 PM, LOCATION [facility] INDICATION: I60.9: Subarachnoid hemorrhage (CMS/HCC) ADDITIONAL [...] 08/22/2022. > Dictated by Ron Marvin MD (residential child care counselor) I, MIKEL REYEZ MD have personally reviewed and interpreted this examination/study. > Interpreting Provider: MIKEL REYEZ MD on 08/22/2022 1:28 PM Narrative 08/22/2022 1:28 PM CDT PROCEDURE: ??CT CHEST WO CONTRAST, DATE/TIME OF EXAM: ??08/22/2022 8:34 AM, LOCATION ??[facility] INDICATION: R07.9: Chest pain, unspecified type [...] CONTRAST, DATE/TIME OF EXAM: 08/22/2022 8:34AM, LOCATION [facility] INDICATION: R07.9: Chest pain, unspecified type [...] 08/22/2022. > Dictated by Ron Marvin MD (residential child care counselor) I, MIKEL REYEZ MD have personally reviewed and interpreted this examination/study. > Interpreting Provider: MIKEL REYEZ MD on 08/22/2022 1:28 PM Heraclio Cabrera MD CT ORDERABLES * XR CHEST 1VW (08/22/2022 8:31 AM CDT) Anatomical Region Laterality Modality Chest Radiographic Marychuy ging 08/23/2022 12:2 5 PM CDT Narrative 08/23/2022 12:27 PM CDT PROCEDURE: ??XR CHEST 1VW, DATE/TIME OF EXAM: ??08/23/2022 10:15 AM, LOCATION [facility] INDICATION: R06.02: SOB (shortness of breath) [...] 1VW, DATE/TIME OF EXAM: 08/23/2022 10:15 AM,LOCATION [facility] INDICATION: R06.02: SOB (shortness of breath) [...] ART + COOX PANEL (08/22/2022 8:16 AM [facility]) pH Arterial 7.31(L) 7.35 - 7.45 pH 08/22/2022 8:43 AM [facility] pO2 Arterial 93 80 - 100 mmHg 08/22/2022 8:43 AM [facility] pCO2 Arterial 32(L) 35 - 45 mmHg 8:43 AM [facility] HCO3 Arterial 16(L) 20 - 30 mmol/l 08/22/2022 8:43 AM [facility] BE Arterial -9.1(L) -2.0 - 2.0 mmol/L 08/22/2022 8:43 AM [facility] Oxyhemoglobin Arterial 96.9 % 08/22/2022 8:43 AM [facility] Dexoyhemoglobin (HHB) % 1.5 % 08/22/2022 8:43 AM [facility] Methemoglobin <0.8 0.0 - 2.0 % 08/22/2022 8:43 AM [facility] Carboxyhemoglobin 1.0 0.0 - 2.0 % 2021 8:43 AM [facility] O2 Content Arterial 15.5 Interpret within clinical context ml/dL 08/22/2022 8:43 AM [facility] Hemoglobin by COOX 11.3(L) 12.0 - 15.6 g/dL 08/22/2022 8:43 AM [facility] O2 Saturation Arterial 99 90 - 100 % 08/22/2022 8:43 AM [facility] FI O2 Arterial 26.0 % 08/22/2022 8:43 AM [facility] Blood, arterial ARTERIAL BLOOD SPECIMEN / Unknown Arterial Puncture / Unknown 08/22/2022 8:16 AM CDT 08/22/2022 8:24 AM CDT Narrative [facility] - 08/22/2022 8:43 AM CDT Carboxyhemoglobin Normal Concentration: Non-smokers: 0-2%; Smokers: 0-9%; Toxic: >20% Héctor Silva MD LAB - BLOOD GASES OR DERABLES Performing Organization Address [facility]/ZIP Co de Phone Number [address] [address], [facility] [phone] * (ABNORMAL) TROPONIN I (08/22/2022 7:47 AM CDT) Pathologist [facility] Troponin I 0.037(H) <0.032 ng/mL 08/22/2022 8:49 AM CDT [facility] Blood BLOOD SPECIMEN / Unknown Lab Venipuncture / Unknown 08/22/2022 7:47 AM CDT 08/22/2022 8:16 AM CDT Héctor Silva MD LAB - CHEMISTRY ORDE RABLES Performing Organization Address [facility] Co de Phone Number [address] [address], [facility] [phone] * (ABNORMAL) RENAL FUNCTION PANEL (08/22/2022 7:47 AM CDT) BUN 63(H) 7 - 26 mg/dL 08/22/2022 8:46 AM CDT [facility] Creatinine 4.00(H) 0.56 - 0.96 mg/dL 08/22/2022 8:46 AM CDT [facility] Sodium 129(L) 136 - 145 mmol/L 08/22/2022 8:46 AM CDT [facility] Potassium 3.8 3.5 - 4.5 mmol/L 08/22/2022 8:46 AM CDT [facility] Chloride 99 98 - 107 mmol/L 08/22/2022 8:46 AM T [facility] CO2 17(L) 22 - 29 mmol/L 08/22/2022 8:46 AM [facility] Glucose 114 70 - 115 mg/dL 08/22/2022 8:46 AM [facility] Albumin 3.0(L) 3.4 - 5.0 g/dL 08/22/2022 8:46 AM [facility] Calcium 9.1 8.4 - 10.2 mg/dL 08/22/2022 8:46 AM [facility] Phosphorus 6.6(H) 2.9 - 5.1 mg/dL 08/22/2022 8:46 AM [facility] Anion Gap 17 8 - 18 08/22/2022 8:46 AM [facility] BUN/Creatinine Ratio 16 7 - 08/22/2022 8:46 AM [facility] Osmolality Calculated 287 270 - 300 mOsm/kg 08/22/2022 8:46 AM [facility] eGFR by CKD-EPI 11(L) >=90 mL/min/1.7 3 m2 08/22/2022 8:46 AM [facility] Blood BLOOD SPECIMEN / Unknown Lab Venipuncture / Unknown 08/22/2022 7:47 AM CDT 08/22/2022 8:17 AM CDT Héctor Silva MD LAB - CHEMISTRY PATRICIA CASIANO [address] [address], [facility] [phone] * MAGNESIUM BLOOD (08/22/2022 7:47 AM CDT) Magnesium 2.3 1.6 - 2.6 mg/dL 08/22/2022 8:46 AM T [facility] Blood BLOOD SPECIMEN / Unknown Lab Venipuncture / Unknown 08/22/2022 7:47 AM CDT 08/22/2022 8:17 AM CDT Héctor Silva MD LAB - CHEMISTRY PATRICIA CASIANO [address] [address], [facility] [phone] * PT-INR [facility] (08/22/2022 7:47 AM CDT) [facility] PT 12.2 12.1 - 14.8 Seconds 08/22/2022 8:40 AM CDT [facility] INR 0.9 See Comment 08/22/2022 8:40 AM T [facility] Comment:The suggested therap eutic [...] - COAGULATION OR DERABLES Performing Organization Address City/State/[facility] Co de Phone Number [address] [address], [facility] [phone] * (ABNORMAL) CBC W/O DIFFERENTIAL (08/22/2022 7:47 AM CDT) [facility] WBC 5.4 3.5 - 10.5 10? 3 /uL 08/22/2022 8:29 AM [facility] RBC 2.87(L) 3.80 - 5.20 10? 6 /uL 08/22/2022 8:29 AM [facility] Hemoglobin 8.2(L) 12.0 - 15.6 g/dL 08/22/2022 8:29 AM [facility] Hematocrit 24.3(L) 35.0 - 45.0 % 08/22/2022 8:29 AM [facility] MCV 84.7 80.7 - 98.3 fL 08/22/2022 8:29 AM T [facility] MCH 28.6 26.7 - 34.0 pg 08/22/2022 8:29 AM T [facility] MCHC 33.7 30.8 - 35.9 g/dL 08/22/2022 8:29 AM [facility] Platelet Count 206 150 - 400 10? 3 /uL 08/22/2022 8:29 AM [facility] RDW-SD 39.9 36.0 - 50.0 fL 08/22/2022 8:29 AM [facility] RDW-CV 13.2 11.2 - 14.8 % 08/22/2022 8:29 AM [facility] MPV 9.8 9.4 - 12.9 fL 08/22/2022 8:29 AM [facility] nRBC Absolute 0.00 0 10? 3 /uL 08/22/2022 8:29 AM [facility] nRBC Auto 0.0 0 /100 WBC 08/22/2022 8:29 AM [facility] Blood BLOOD SPECIMEN / Unknown Lab Venipuncture / Unknown 08/22/2022 7:47 AM CDT 08/22/2022 8:17 AM CDT Héctor Silva MD LAB - HEMATOLOGY ORD ERABLES [address] [address], [facility] [phone] * UREA NITROGEN URINE RANDOM (08/22/2022 3:52 AM CDT) Urea Nitrogen Random Urine 186 Not Established mg/dL 08/22/2022 4:26 AM T [facility] Urine URINE SPECIMEN OBTAINED BY CLEAN CATCH PROCEDURE / Unknown Collection / Unknown 08/22/2022 3:52 AM CDT 08/22/2022 3:58 AM CDT Héctor Silva MD LAB - URINE CHEMISTR Y ORDERABLES [address] [address], [facility] [phone] * OSMOLALITY URINE (08/22/2022 3:52 AM CDT) Osmolality Urine 309 50 - 1,200 mOsm/kg 08/22/2022 5:38 AM CDT [facility] Urine URINE SPECIMEN OBTAINED BY CLEAN CATCH PROCEDURE / Unknown Collection / Unknown 08/22/2022 3:52 AM CDT 08/22/2022 3:58 AM CDT Héctor Silva MD LAB - URINE CHEMISTR Y ORDERABLES [address] [address], [facility] [phone] * CREATININE URINE RANDOM (08/22/2022 3:52 AM CDT) Creatinine Urine 30 Not Established mg/dL 08/22/2022 4:26 AM CDT [facility] Urine URINE SPECIMEN OBTAINED BY CLEAN CATCH PROCEDURE / Unknown Collection / Unknown 08/22/2022 3:52 AM CDT 08/22/2022 3:58 AM CDT Héctor Silva MD LAB - URINE CHEMISTR Y ORDERABLES Performing Organization Address City/[facility]/ZIP Co de Phone Number [address] [address], [facility] [phone] * LYTES (NA K CL) URINE RANDOM PANEL (08/22/2022 3:52 AM CDT) Sodium Urine 75 Not Established mmol/L 08/22/2022 4:26 AM CDT [facility] Potassium Urine 35.9 Not Established mmol/L 08/22/2022 4:26 AM CDT [facility] Chloride Random Urine 105 Not Established mmol/L 08/22/2022 4:26 AM CDT [facility] Urine URINE SPECIMEN OBTAINED BY CLEAN CATCH PROCEDURE / Unknown Collection / Unknown 08/22/2022 3:52 AM CDT 08/22/2022 3:58 AM CDT Héctor Silva MD LAB - URINE CHEMISTR Y ORDERABLES Performing Organization Address City/[facility]/ZIP Co de Phone Number [address] [place] [address], [facility] [phone] * (ABNORMAL) TROPONIN I (08/21/2022 11:40 PM CDT) [facility] Troponin I 0.058(H) <0.032 ng/mL 08/22/2022 12:05 AM [facility] Blood BLOOD SPECIMEN / Unknown Venipuncture / Unknown 08/21/2022 11:40 PM CDT 08/21/2022 11:44 PM CDT Héctor Silva MD LAB - CHEMISTRY PATRICIA CASIANO [facility] Organization Address City/State/ZIP Co de Phone Number [address] [address], [facility] [phone] * (ABNORMAL) BLOOD GASES ART + COOX PANEL (08/21/2022 7:30 PM CDT) [facility] pH Arterial 7.34(L) 7.35 - 7.45 pH 08/21/2022 7:35 PM [facility] pO2 Arterial 312(H) 80 - 100 mmHg 08/21/2022 7:35 PM [facility] pCO2 Arterial 31(L) 35 - 45 mmHg 7:35 PM [facility] HCO3 Arterial 17(L) 20 - 30 mmol/l 08/21/2022 7:35 PM [facility] BE Arterial -8.2(L) -2.0 - 2.0 mmol/L 08/21/2022 7:35 PM [facility] Oxyhemoglobin Arterial 97.9 % 08/21/2022 7:35 PM [facility] Dexoyhemoglobin (HHB) % 0.2 % 08/21/2022 7:35 PM [facility] Methemoglobin 0.8 0.0 - 2.0 % 08/21/2022 7:35 PM [facility] Carboxyhemoglobin 1.2 0.0 - 2.0 % 2021 7:35 PM [facility] O2 Content Arterial 12.8 Interpret within clinical context ml/dL 08/21/2022 7:35 PM CDT [facility] Hemoglobin by COOX 8.7(L) 12.0 - 15.6 g/dL 08/21/2022 7:35 PM CDT [facility] O2 Saturation Arterial 100 90 - 100 % 08/21/2022 7:35 PM CDT [facility] FI O2 Arterial 100.0 % 08/21/2022 7:35 PM CDT [facility] Blood, arterial ARTERIAL BLOOD SPECIMEN / Unknown Arterial Puncture / Unknown 08/21/2022 7:30 PM CDT 08/21/2022 7:32 PM CDT Narrative [facility] - 08/21/2022 7:35 PM CDT Carboxyhemoglobin Normal Concentration: Non-smokers: 0-2%; Smokers: 0-9%; Toxic: >20% Héctor Silva MD LAB - BLOOD GASES OR DERABLES Performing Organization Address City/[facility]/ZIP Co de Phone Number [facility] [address] [phone], [facility] [phone] * EKG 12-LEAD (08/21/2022 7:22 PM CDT) [facility] Ventricular Rate 75 BPM [facility] Atrial Rate 75 BPM [facility] P-R Interval 212 ms [facility] QRS Duration ms 96 ms [facility] Q-T Interval ms 432 ms [facility] QTC Calculation (Bezet) 482 ms [facility] Calculated P [place] 73 degrees [facility] Calculated R [place] 25 degrees [facility] Calculated T [place] 52 degrees [facility] Interpretation EKG SINUS RHYTHM WITH 1ST DEGREE A-V BLOCK WITH PREMATURE ATRIAL COMPLEXES OTHERWISE NORMAL ECG WHEN COMPARED WITH ECG OF 21-AUG-2022 11:52, PREMATURE ATRIAL COMPLEXES are new Confirmed by [place] ([id number]) on 08/22/2022 8:15:40 PM [facility] 08/21/2022 7:22 PM CDT 08/22/2022 8:15 PM CDT Héctor Silva MD ECG ORDERABLES Performing Organization Address City/[facility]/ZIP Co de Phone Number [facility] * (ABNORMAL) BASIC METABOLIC PANEL (CALCIUM TOTAL) (08/21/2022 6:25 PM CDT) BUN 59(H) 7 - 26 mg/dL 08/21/2022 6:57 PM T [facility] Creatinine 4.05(H) 0.56 - 0.96 mg/dL 08/21/2022 6:57 PM T [facility] Sodium 127(L) 136 - 145 mmol/L 08/21/2022 6:57 PM T [facility] Potassium 3.9 3.5 - 4.5 mmol/L 08/21/2022 6:57 PM T [facility] Chloride 101 98 - 107 mmol/L 08/21/2022 6:57 PM T [facility] CO2 16(L) 22 - 29 mmol/L 08/21/2022 6:57 PM T [facility] Glucose 123(H) 70 - 115 mg/dL 08/21/2022 6:57 PM T [facility] Calcium 8.8 8.4 - 10.2 mg/dL 08/21/2022 6:57 PM T [facility] Anion Gap 14 8 - 18 08/21/2022 6:57 PM [facility] BUN/Creatinine Ratio 15 7 - 23 08/21/2022 6:57 PM T [facility] Osmolality Calculated 282 270 - 300 mOsm/kg 08/21/2022 6:57 PM [facility] eGFR by CKD-EPI 11(L) >=90 mL/min/1.7 3 m2 08/21/2022 6:57 PM T [facility] Blood BLOOD SPECIMEN / Unknown Lab Venipuncture / Unknown 08/21/2022 6:25 PM CDT 08/21/2022 6:31 PM CDT Héctor Silva MD LAB - CHEMISTRY PATRICIA CASIANO [facility] [address] [place] [address], [facility] [phone] * (ABNORMAL) TROPONIN I (08/21/2022 4:55 PM CDT) Troponin I 0.054(H) <0.032 ng/mL 08/21/2022 5:39 PM CDT [facility] Blood BLOOD SPECIMEN / Unknown Lab Venipuncture / Unknown 08/21/2022 4:55 PM CDT 08/21/2022 5:08 PM CDT Héctor Silva MD LAB - CHEMISTRY PATRICIA ACSIANO [address] [address], [place] [phone] * UREA NITROGEN URINE RANDOM (08/21/2022 12:04 PM CDT) Pathologist [facility] Urea Nitrogen Random Urine 528 Not Established mg/dL 08/21/2022 12:33 PM CDT [facility] Urine URINE SPECIMEN OBTAINED BY CLEAN CATCH PROCEDURE / Unknown Collection / Unknown 08/21/2022 12:04 PM CDT 08/21/2022 12:10 PM CDT Héctor Silva MD LAB - URINE CHEMISTR Y ORDERABLES Performing Organization Address [facility] Co de Phone Number [address] [address], [place] [phone] * OSMOLALITY URINE (08/21/2022 12:04 PM CDT) Pathologist [facility] Osmolality Urine 378 50 - 1,200 mOsm/kg 08/21/2022 12:34 PM CDT [facility] Urine URINE SPECIMEN OBTAINED BY CLEAN CATCH PROCEDURE / Unknown Collection / Unknown 08/21/2022 12:04 PM CDT 08/21/2022 12:10 PM CDT Héctor Silva MD LAB - URINE CHEMISTR Y ORDERABLES Performing Organization Address [facility]/ZIP Co de Phone Number [address] [address], [place] [phone] * CREATININE URINE RANDOM (08/21/2022 12:04 PM CDT) Creatinine Urine 93 Not Established mg/dL 08/21/2022 12:33 PM CDT [facility] Urine URINE SPECIMEN OBTAINED BY CLEAN CATCH PROCEDURE / Unknown Collection / Unknown 08/21/2022 12:04 PM CDT 08/21/2022 12:10 PM CDT Héctor Silva MD LAB - URINE CHEMISTR Y ORDERABLES [address] [address], [place] [phone] * SODIUM URINE RANDOM (08/21/2022 12:04 PM CDT) Sodium Urine 25 Not Established mmol/L 08/21/2022 12:33 PM CDT [facility] Urine URINE SPECIMEN OBTAINED BY CLEAN CATCH PROCEDURE / Unknown Collection / Unknown 08/21/2022 12:04 PM CDT 08/21/2022 12:10 PM CDT Héctor Silva MD LAB - URINE CHEMISTR Y ORDERABLES Performing Organization Address City/[facility]/ZIP Co de Phone Number [address] [address], [place] [phone] * LYTES (NA K) URINE RANDOM PANEL (08/21/2022 12:04 PM CDT) Sodium Urine 25 Not Established mmol/L 08/21/2022 12:33 PM CDT [facility] Potassium Urine 52.2 Not Established mmol/L 08/21/2022 12:33 PM CDT [facility] Urine URINE SPECIMEN OBTAINED BY CLEAN CATCH PROCEDURE / Unknown Collection / Unknown 08/21/2022 12:04 PM CDT 08/21/2022 12:10 PM CDT Héctor Silva MD LAB - URINE CHEMISTR Y ORDERABLES Performing Organization Address City/[facility]/ZIP Co de Phone Number [address] [address], [place] [phone] * EKG 12-LEAD (08/21/2022 11:52 AM CDT) [facility] Ventricular Rate 64 BPM [facility] Atrial Rate 64 BPM [facility] P-R Interval 224 ms [facility] QRS Duration ms 86 ms [facility] Q-T Interval ms 444 ms [facility] QTC Calculation (Bezet) 458 ms [facility] Calculated P [place] 72 degrees [facility] Calculated R [place] 20 degrees [facility] Calculated T [place] 11 degrees [facility] Interpretation EKG SINUS RHYTHM WITH 1ST DEGREE A-V BLOCK OTHERWISE NORMAL ECG WHEN COMPARED WITH ECG OF 20-AUG-2022 10:08, NONSPECIFIC T WAVE ABNORMALITY NOW EVIDENT IN INFERIOR LEADS NONSPECIFIC T WAVE ABNORMALITY NO LONGER EVIDENT IN LATERAL LEADS Confirmed by [place] ([id number]) on 08/22/2022 4:18:01 PM [facility] 08/21/2022 11:5 2 AM CDT 08/22/2022 4:18 PM CDT Héctor Silva MD ECG [place]ABLES [facility] [place] (ABNORMAL) D-DIMER (08/21/2022 11:23 AM CDT) [facility] D-Dimer Quantitative 3.06(H) <=0.50 mcg/mL FEU 08/21/2022 11:59 AM CDT [facility] Comment: In the absence of [...] - COAGULATION OR DERABLES Performing Organization Address [facility]/ZIP Co de Phone Number [address] [address], [place] [phone] * (ABNORMAL) TROPONIN I (08/21/2022 11:23 AM CDT) Troponin I 0.073(H) <0.032 ng/mL 08/21/2022 12:06 PM CDT [facility] Blood BLOOD SPECIMEN / Unknown Lab Venipuncture / Unknown 08/21/2022 11:23 AM CDT 08/21/2022 11:31 AM CDT Héctor Silva MD LAB - CHEMISTRY ORDE RABLES Performing Organization Address [facility]/ZIP Co de Phone Number [address] [address], [place] [phone] * XR CHEST 1VW PORTABLE (08/21/2022 10:23 [...] shoulders. > Dictated by German Aponte MD (residential child care counselor). MIKEL Hester MD have personally reviewed and [...] shoulders. > Dictated by German Aponte MD (residential child care counselor). MIKEL Hester MD have personally reviewed and interpreted this examination/study. > Interpreting Provider: MIKEL REYEZ MD on 08/21/2022 11:17 PM Héctor Silva MD DIAGNOSTIC IMAGING O RDERABLES * (ABNORMAL) PHOSPHORUS BLOOD (08/21/2022 2:13 AM CDT) Phosphorus 5.8(H) 2.9 - 5.1 mg/dL 08/21/2022 4:18 AM CDT [facility] Blood BLOOD SPECIMEN / Unknown Lab Venipuncture / Unknown 08/21/2022 2:13 AM CDT 08/21/2022 3:36 AM CDT Héctor Silva MD LAB - CHEMISTRY PATRICIA CASIANO [facility] [address] [place] [address], [place] [phone] * MAGNESIUM BLOOD (08/21/2022 2:13 AM CDT) [facility] Magnesium 2.0 1.6 - 2.6 mg/dL 08/21/2022 4:18 AM CDT [facility] Blood BLOOD SPECIMEN / Unknown Lab Venipuncture / Unknown 08/21/2022 2:13 AM CDT 08/21/2022 3:36 AM CDT Héctor Silva MD LAB - CHEMISTRY PATRICIA CASIANO Performing Organization Address [facility]/ZIP Co de Phone Number [address] [address], [place] [phone] * (ABNORMAL) PT-INR [facility] (08/21/2022 2:13 AM CDT) [facility] PT 11.9(L) 12.1 - 14.8 Seconds 08/21/2022 4:14 AM CDT [facility] INR 0.9 See Comment 08/21/2022 4:14 AM CDT [facility] Comment:The suggested therap eutic range for standard coumadin (warfarin) therapy is an INR of 2.0-3.0. For high-risk patients (Mechanical Mitral Valve Prosthesis, etc.), the suggested prophylactic therapeutic range is an INR of 2.5-3.5. Blood BLOOD SPECIMEN / Unknown Lab Venipuncture / Unknown 08/21/2022 2:13 AM CDT 08/21/2022 4:06 AM CDT Héctor Silva MD LAB - COAGULATION OR DERABLES [address] [address], [place] [phone] * (ABNORMAL) BASIC METABOLIC PANEL (CALCIUM TOTAL) (08/21/2022 2:13 AM CDT) [facility] BUN 63(H) 7 - 26 mg/dL 08/21/2022 4:18 AM [facility] Creatinine 4.29(H) 0.56 - 0.96 mg/dL 08/21/2022 4:18 AM [facility] Sodium 127(L) 136 - 145 mmol/L 08/21/2022 4:18 AM [facility] Potassium 3.9 3.5 - 4.5 mmol/L 08/21/2022 4:18 AM [facility] Chloride 101 98 - 107 mmol/L 08/21/2022 4:18 AM [facility] CO2 15(L) 22 - 29 mmol/L 08/21/2022 4:18 AM [facility] Glucose 110 70 - 115 mg/dL 08/21/2022 4:18 AM [facility] Calcium 8.6 8.4 - 10.2 mg/dL 08/21/2022 4:18 AM [facility] Anion Gap 15 8 - 18 08/21/2022 4:18 AM [facility] BUN/Creatinine Ratio 15 7 - 23 08/21/2022 4:18 AM [facility] Osmolality Calculated 283 270 - 300 mOsm/kg 08/21/2022 4:18 AM [facility] eGFR by CKD-EPI 10(L) >=90 mL/min/1.7 3 m2 08/21/2022 4:18 AM [facility] Blood BLOOD SPECIMEN / Unknown Lab Venipuncture / Unknown 08/21/2022 2:13 AM CDT 08/21/2022 3:36 AM CDT Héctor Silva MD LAB - CHEMISTRY PATRICIA CASIANO [facility] Organization Address City/State/ZIP Co de Phone Number [facility] [address] [place] [phone], [facility] [phone] * (ABNORMAL) CBC W/O DIFFERENTIAL (08/21/2022 2:13 AM CDT) WBC 3.7 3.5 - 10.5 10? 3 /uL 08/21/2022 3:38 AM [facility] RBC 2.67(L) 3.80 - 5.20 10? 6 /uL 08/21/2022 3:38 AM [facility] Hemoglobin 7.5(L) 12.0 - 15.6 g/dL 08/21/2022 3:38 AM [facility] Hematocrit 22.3(L) 35.0 - 45.0 % 08/21/2022 3:38 AM [facility] MCV 83.5 80.7 - 98.3 fL 08/21/2022 3:38 AM [facility] MCH 28.1 26.7 - 34.0 pg 08/21/2022 3:38 AM [facility] MCHC 33.6 30.8 - 35.9 g/dL 08/21/2022 3:38 AM [facility] Platelet Count 164 150 - 400 10? 3 /uL 08/21/2022 3:38 AM [facility] RDW-SD 40.8 36.0 - 50.0 fL 08/21/2022 3:38 AM [facility] RDW-CV 13.3 11.2 - 14.8 % 08/21/2022 3:38 AM [facility] MPV 9.9 9.4 - 12.9 fL 08/21/2022 3:38 AM [facility] nRBC Absolute 0.00 0 10? 3 /uL 08/21/2022 3:38 AM [facility] nRBC Auto 0.0 0 /100 WBC 08/21/2022 3:38 AM [facility] Blood BLOOD SPECIMEN / Unknown Lab Venipuncture / Unknown 08/21/2022 2:13 AM CDT 08/21/2022 3:29 AM CDT Héctor Silva MD LAB - HEMATOLOGY ORD ERABLES [facility] [address] [place] [phone], [facility] [phone] * (ABNORMAL) TROPONIN I (08/20/2022 12:44 PM CDT) Troponin I 0.113(H) <0.032 ng/mL 08/20/2022 1:23 PM CDT [facility] Blood BLOOD SPECIMEN / Unknown Lab Venipuncture / Unknown 08/20/2022 12:44 PM CDT 08/20/2022 12:50 PM CDT Héctor Silva MD LAB - CHEMISTRY PATRICIA CASIANO Performing Organization Address [facility] de Phone Number [facility] [address] [place] [phone], [facility] [phone] * PROCALCITONIN LEVEL (08/20/2022 12:44 PM CDT) PROCALCITONIN 0.10 <=0.10 ng/mL 08/20/2022 1:56 PM CDT [facility] Blood BLOOD SPECIMEN / Unknown Lab Venipuncture / Unknown 08/20/2022 12:44 PM CDT 08/20/2022 12:47 PM CDT Narrative [facility] - 08/20/2022 1:56 PM CDT The [...] Change in Procalcitonin Calculator is available at [email or web address] ?? If clinical picture has not improved and PCT remains high, reevaluate and consider treatment failure or other causes. Héctor Silva MD LAB - CHEMISTRY PATRICIA CASIANO [facility] [address] [place] [address], [facility] [phone] * US RETROPERITONEAL COMPLETE (08/20/2022 11:34 AM CDT) Anatomical Region Laterality Modality Abdomen Ultrasound 08/20/2022 11:4 1 AM CDT Impressions 08/20/2022 1:22 PM CDT IMPRESSION: 1.Normal renal size. No evidence of nephrolithiasis, hydronephrosis, or solid renal mass. 2.1.5 x 1.1 cm simple cyst within the upper pole of the right kidney. 3.Right pleural effusion. > Dictated by Xiao Hamm MD (residential child care counselor). ICorey MD have personally reviewed and interpreted this examination/study. > Interpreting Provider: Corey Min MD on 08/20/2022 1:22 PM Narrative 08/20/2022 1:22 PM CDT PROCEDURE: ??US RETROPERITONEAL COMPLETE, DATE/TIME OF EXAM: ??08/20/2022 11:34 AM, LOCATION ??[facility] INDICATION: E87.1: Hyponatremia ADDITIONAL CLINICAL INFORMATION: [...] DATE/TIME OF EXAM: 08/20/2022 11:34 AM, LOCATION [facility] INDICATION: E87.1: Hyponatremia ADDITIONAL CLINICAL INFORMATION: [...] effusion. > Dictated by Xiao Hamm MD (residential child care counselor). ICorey MD have personally reviewed and interpreted [...] (Bezet) 461 ms [facility] MUSE Calculated P [place] 62 degrees [facility] MUSE Calculated R [place] 14 degrees [facility] MUSE Calculated T [place] 58 degrees [facility] MUSE Interpretation EKG SINUS BRADYCARDIA WITH 1ST DEGREE A-V BLOCK OTHERWISE NORMAL ECG WHEN COMPARED WITH ECG OF 15-AUG-2022 11:29, T WAVE INVERSION NO LONGER EVIDENT IN ANTERIOR LEADS QT HAS SHORTENED Confirmed by [place] ([id number]) on 08/20/2022 6:54:25 PM [facility] 08/20/2022 10:0 8 AM CDT 08/20/2022 6:54 PM CDT Héctor Silva MD ECG ORDERABLES Performing Organization Address City/[facility]/ZIP Co de Phone Number [facility] * (ABNORMAL) TROPONIN I (08/20/2022 7:51 AM CDT) Troponin I 0.124(H) <0.032 ng/mL 08/20/2022 8:31 AM CDT [facility] Blood BLOOD SPECIMEN / Unknown Lab Venipuncture / Unknown 08/20/2022 7:51 AM CDT 08/20/2022 7:59 AM CDT Héctor Silva MD LAB - CHEMISTRY PATRICIA CASIANO Performing Organization Address City/[facility]/ZIP Co de Phone Number [facility] [address] [place] [phone], [facility] [phone] * XR CHEST 1VW PORTABLE (08/20/2022 7:42 [...] in the imaged shoulders. > Interpreting Provider: MIEKL REYEZ MD on 08/20/2022 11:34 AM Héctor Silva MD DIAGNOSTIC IMAGING O RDERABLES * (ABNORMAL) PHOSPHORUS BLOOD (08/20/2022 2:50 AM CDT) Phosphorus 6.1(H) 2.9 - 5.1 mg/dL 08/20/2022 3:33 AM CDT [facility] Blood BLOOD SPECIMEN / Unknown Lab Venipuncture / Unknown 08/20/2022 2:50 AM CDT 08/20/2022 3:00 AM CDT Héctor Silva MD LAB - CHEMISTRY PATRICIA CASIANO [address] [address], [facility] [phone] * MAGNESIUM BLOOD (08/20/2022 2:50 AM CDT) Magnesium 2.0 1.6 - 2.6 mg/dL 08/20/2022 3:33 AM CDT [facility] Blood BLOOD SPECIMEN / Unknown Lab Venipuncture / Unknown 08/20/2022 2:50 AM CDT 08/20/2022 3:00 AM CDT Héctor Silva MD LAB - CHEMISTRY PATRICIA CASIANO [facility] [address] [place] [address], [facility] [phone] * PT-INR [facility] (08/20/2022 2:50 AM CDT) Pathologist [facility] PT 13.3 12.1 - 14.8 Seconds 08/20/2022 3:26 AM CDT [facility] INR 1.0 See Comment 08/20/2022 3:26 AM [facility] Comment:The suggested therap eutic range for standard coumadin (warfarin) therapy is an INR of 2.0-3.0. For high-risk patients (Mechanical Mitral Valve Prosthesis, etc.), the suggested prophylactic therapeutic range is an INR of 2.5-3.5. Blood BLOOD SPECIMEN / Unknown Lab Venipuncture / Unknown 08/20/2022 2:50 AM CDT 08/20/2022 3:00 AM CDT Héctor Silva MD LAB - COAGULATION OR DERABLES Performing Organization Address [facility] Co de Phone Number [facility] [address] [place] [phone], [facility] [phone] * (ABNORMAL) BASIC METABOLIC PANEL (CALCIUM TOTAL) (08/20/2022 2:50 AM CDT) Pathologist [facility] BUN 66(H) 7 - 26 mg/dL 08/20/2022 3:33 AM [facility] Creatinine 4.57(H) 0.56 - 0.96 mg/dL 08/20/2022 3:33 AM [facility] Sodium 127(L) 136 - 145 mmol/L 08/20/2022 3:33 AM [facility] Potassium 4.1 3.5 - 4.5 mmol/L 08/20/2022 3:33 AM [facility] Chloride 98 98 - 107 mmol/L 08/20/2022 3:33 AM [facility] CO2 16(L) 22 - 29 mmol/L 08/20/2022 3:33 AM T [facility] Glucose 118(H) 70 - 115 mg/dL 08/20/2022 3:33 AM [facility] Calcium 8.2(L) 8.4 - 10.2 mg/dL 08/20/2022 3:33 AM [facility] Anion Gap 17 8 - 18 08/20/2022 3:33 AM [facility] BUN/Creatinine Ratio 14 7 - 23 08/20/2022 3:33 AM [facility] Osmolality Calculated 284 270 - 300 mOsm/kg 08/20/2022 3:33 AM [facility] eGFR by CKD-EPI 9(L) >=90 mL/min/1.7 3 m2 08/20/2022 3:33 AM [facility] Blood BLOOD SPECIMEN / Unknown Lab Venipuncture / Unknown 08/20/2022 2:50 AM CDT 08/20/2022 3:00 AM CDT Héctor Silva MD LAB - CHEMISTRY PATRICIA CASIANO [facility] Organization Address City/State/[facility] Co de Phone Number [address] [address], [facility] [phone] * (ABNORMAL) CBC W/O DIFFERENTIAL (08/20/2022 2:50 AM CDT) WBC 4.0 3.5 - 10.5 10? 3 /uL 08/20/2022 3:13 AM [facility] RBC 2.61(L) 3.80 - 5.20 10? 6 /uL 08/20/2022 3:13 AM [facility] Hemoglobin 7.3(L) 12.0 - 15.6 g/dL 08/20/2022 3:13 AM [facility] Hematocrit 21.8(L) 35.0 - 45.0 % 08/20/2022 3:13 AM [facility] MCV 83.5 80.7 - 98.3 fL 08/20/2022 3:13 AM [facility] MCH 28.0 26.7 - 34.0 pg 08/20/2022 3:13 AM [facility] MCHC 33.5 30.8 - 35.9 g/dL 08/20/2022 3:13 AM CDT [facility] Platelet Count 153 150 - 400 10? 3 /uL 08/20/2022 3:13 AM CDT [facility] RDW-SD 41.1 36.0 - 50.0 fL 08/20/2022 3:13 AM T [facility] RDW-CV 13.4 11.2 - 14.8 % 08/20/2022 3:13 AM T [facility] MPV 9.7 9.4 - 12.9 fL 08/20/2022 3:13 AM T [facility] nRBC Absolute 0.00 0 10? 3 /uL 08/20/2022 3:13 AM T [facility] nRBC Auto 0.0 0 /100 WBC 08/20/2022 3:13 AM T [facility] Blood BLOOD SPECIMEN / Unknown Lab Venipuncture / Unknown 08/20/2022 2:50 AM CDT 08/20/2022 3:00 AM CDT Héctor Silva MD LAB - HEMATOLOGY ORD ERABLES [address] [address], [facility] [phone] * OSMOLALITY BLOOD (08/20/2022 2:50 AM CDT) Osmolality 289 270 - 300 mOsm/kg 08/20/2022 4:11 AM T [facility] Blood BLOOD SPECIMEN / Unknown Lab Venipuncture / Unknown 08/20/2022 2:50 AM CDT 08/20/2022 3:00 AM CDT Héctor Silva MD LAB - CHEMISTRY ORDSundeep CASIANO [address] [address], [facility] [phone] * TRIGLYCERIDES BLOOD (08/20/2022 2:50 AM CDT) Triglycerides 64 <150 mg/dL 08/20/2022 3:33 AM CDT [facility] Comment: ATP III Classification of Triglycerides: ?<150 mg/dL: ??Normal ? 150 - 199 mg/dL: ??Borderline High ? 200 - 400 mg/dL: ??High ?>500 mg/dL: ??Very High Blood BLOOD SPECIMEN / Unknown Lab Venipuncture / Unknown 08/20/2022 2:50 AM CDT 08/20/2022 3:00 AM CDT Héctor Silva MD LAB - CHEMISTRY PATRICIA CASIANO Performing Organization Address [facility]/ZIP Co de Phone Number [address] [address], [place] [phone] * TSH REFLEX FREE T4 (08/20/2022 2:50 AM CDT) TSH 4.654 0.350 - 4.940 uIU/mL 08/20/2022 3:48 AM CDT [facility] Blood BLOOD SPECIMEN / Unknown Lab Venipuncture / Unknown 08/20/2022 2:50 AM CDT 08/20/2022 3:00 AM CDT Héctor Silva MD LAB - CHEMISTRY PATRICIA CASIANO Performing Organization Address [facility]/ZIP Co de Phone Number [address] [address], [place] [phone] * (ABNORMAL) BASIC METABOLIC PANEL (CALCIUM TOTAL) (08/19/2022 9:00 PM CDT) BUN 71(H) 7 - 26 mg/dL 08/19/2022 9:30 PM CDT [facility] Creatinine 4.59(H) 0.56 - 0.96 mg/dL 08/19/2022 9:30 PM CDT [facility] Sodium 127(L) 136 - 145 mmol/L 08/19/2022 9:30 PM CDT [facility] Potassium 4.1 3.5 - 4.5 mmol/L 08/19/2022 9:30 PM CDT [facility] Chloride 98 98 - 107 mmol/L 08/19/2022 9:30 PM T [facility] CO2 16(L) 22 - 29 mmol/L 08/19/2022 9:30 PM T [facility] Glucose 131(H) 70 - 115 mg/dL 08/19/2022 9:30 PM T [facility] Calcium 8.4 8.4 - 10.2 mg/dL 08/19/2022 9:30 PM T [facility] Anion Gap 17 8 - 18 08/19/2022 9:30 PM T [facility] BUN/Creatinine Ratio 15 7 - 23 08/19/2022 9:30 PM T [facility] Osmolality Calculated 287 270 - 300 mOsm/kg 08/19/2022 9:30 PM [facility] eGFR by CKD-EPI 9(L) >=90 mL/min/1.7 3 m2 08/19/2022 9:30 PM T [facility] Blood BLOOD SPECIMEN / Unknown Lab Venipuncture / Unknown 08/19/2022 9:00 PM CDT 08/19/2022 9:05 PM CDT [facility] LAB - CHEMISTRY OR DERABLES [address] [address], [facility] [phone] * SODIUM URINE RANDOM (08/19/2022 1:00 PM CDT) Sodium Urine <20 Not Established mmol/L 08/19/2022 1:41 PM CDT [facility] Urine URINE SPECIMEN OBTAINED BY CLEAN CATCH PROCEDURE / Unknown Collection / Unknown 08/19/2022 1:00 PM CDT 08/19/2022 1:04 PM CDT Héctor Silva MD LAB - URINE CHEMISTR Y ORDERABLES Performing Organization Address City/[facility]/ZIP Co de Phone Number [address] [address], [place] [phone] * OSMOLALITY URINE (08/19/2022 1:00 PM CDT) Osmolality Urine 288 50 - 1,200 mOsm/kg 08/19/2022 2:11 PM CDT [facility] Urine URINE SPECIMEN OBTAINED BY CLEAN CATCH PROCEDURE / Unknown Collection / Unknown 08/19/2022 1:00 PM CDT 08/19/2022 1:04 PM CDT Héctor Silva MD LAB - URINE CHEMISTR Y ORDERABLES Performing Organization Address [facility]/ZIP Co de Phone Number [facility] [address] [place] [address], [facility] [phone] * (ABNORMAL) PROTEIN CREATININE RATIO URINE RANDOM PNL (08/19/2022 1:00 PM CDT) Pathologist [facility] Protein Urine 163 Not Established mg/dL 08/19/2022 1:41 PM CDT [facility] Creatinine Urine 96 Not Established mg/dL 08/19/2022 1:41 PM CDT [facility] Protein/Creati nine Ratio Urine 1.70(H) <0.10 08/19/2022 1:41 PM CDT [facility] Urine URINE SPECIMEN OBTAINED BY CLEAN CATCH PROCEDURE / Unknown Collection / Unknown 08/19/2022 1:00 PM CDT 08/19/2022 1:04 PM CDT Héctor Silva MD LAB - URINE CHEMISTR Y ORDERABLES Performing Organization Address City/[facility]/ZIP Co de Phone Number [facility] [address] [place] [address], [place] [phone] * (ABNORMAL) URINALYSIS REFLEX TO MICROSCOPIC NO CULTURE (08/19/2022 1:00 PM CDT) Color UA Yellow Straw, Yellow 08/22/2022 3:46 PM CDT [facility] Clarity UA t Cloudy(A) Clear 08/22/2022 3:46 PM CDT [facility] Specific Foster UA 1.011 1.005 - 1.030 08/22/2022 3:46 PM [facility] pH UA 5.0 5.0 - 8.0 pH 08/22/2022 3:46 PM [facility] Protein UA 2+(A) Negative 08/22/2022 3:46 PM [facility] Glucose UA Negative Negative 08/22/2022 3:46 PM [facility] Ketone UA Negative Negative 08/22/2022 3:46 PM [facility] Bilirubin UA Negative Negative 08/22/2022 3:46 PM [facility] Blood UA Negative Negative 08/22/2022 3:46 PM [facility] Nitrite UA Negative Negative 08/22/2022 3:46 PM [facility] Leukocyte Esterase 2+(A) Negative 08/22/2022 3:46 PM [facility] Urobilinogen UA Negative Negative mg/dL 08/22/2022 3:46 PM [facility] RBC UA 0-2 None Seen, 0-2, 3-5 /HPF 08/22/2022 3:46 PM [facility] Comment:This is an appended report. These results have been appended to a previously final verified report. WBC UA 11-20(A) None Seen, 0-5 /HPF 08/22/2022 3:46 PM [facility] Comment:This is an appended report. These results have been appended to a previously final verified report. Bacteria UA Trace(A) None /HPF 08/22/2022 3:46 PM [facility] Comment:This is an appended report. These results have been appended to a previously final verified report. Squamous Epithelial Cells UA 0-2 None Seen, 0-2, 3-5 /HPF 08/22/2022 3:46 PM [facility] Comment:This is an appended report. These results have been appended to a previously final verified report. Urine URINE SPECIMEN OBTAINED BY CLEAN CATCH PROCEDURE / Unknown Collection / Unknown 08/19/2022 1:00 PM CDT 08/19/2022 1:04 PM CDT [facility] - 08/22/2022 3:46 PM CDT Héctor Silva MD LAB - URINALYSIS ORD ERABLES Performing Organization Address [facility]/ZIP Co de Phone Number [facility] [address] [place] [address], [facility] [phone] * (ABNORMAL) PROTEIN ELECTROPHORESIS URINE TIMED (08/19/2022 1:00 PM CDT) Interpretation Urine PE See Comment Normal Pattern 08/26/2022 10:48 PM CDT [facility] Comment: Urine protein electrophoresis shows bands corresponding to albumin and transferrin along with small amounts of other nonspecific proteinuria. ?? No monoclonal immunoglobulins detected. Terry Burnham PhD, [facility] Clinical [employer] directory clerk Protein Urine 146 Not Established mg/dL 08/26/2022 10:48 PM CDT [facility] Volume Timed Urine 489 mL 2021 10:48 PM CDT [facility] Collection Time Timed Urine 8 Hrs 08/26/2022 10:48 PM T [facility] Protein 24 Hour Urine 714(H) 77 - 197 mg/24 hrs 08/26/2022 10:48 PM T [facility] Protein Total Timed Urine 714 Not established for collection periods other than 24 Hrs. mg/X hrs 08/26/2022 10:48 PM T [facility] Urine TIMED URINE SPECIMEN / Unknown Timed Urine Volume Measurement / Unknown 08/19/2022 1:00 PM CDT 08/19/2022 1:04 PM CDT Héctor Silva MD LAB - URINE CHEMISTR Y ORDERABLES [facility] [address] [place] [address], [facility] [phone] * (ABNORMAL) PHOSPHORUS BLOOD (08/19/2022 10:56 AM CDT) Phosphorus 5.7(H) 2.9 - 5.1 mg/dL 08/19/2022 11:43 AM CDT [facility] Blood BLOOD SPECIMEN / Unknown Venipuncture / Unknown 08/19/2022 10:56 AM CDT 08/19/2022 11:12 AM CDT Héctor Silva MD LAB - CHEMISTRY PATRICIA CASIANO Performing Organization Address City/[facility]/ZIP Co de Phone Number [address] [address], [facility] [phone] * MAGNESIUM BLOOD (08/19/2022 10:56 AM CDT) Magnesium 2.1 1.6 - 2.6 mg/dL 08/19/2022 11:43 AM CDT [facility] Blood BLOOD SPECIMEN / Unknown Venipuncture / Unknown 08/19/2022 10:56 AM CDT 08/19/2022 11:12 AM CDT Héctor Silva MD LAB - CHEMISTRY PATRICIA CASIANO Performing Organization Address [facility] Co de Phone Number [address] [address], [facility] [phone] * PT-INR [facility] (08/19/2022 10:56 AM CDT) PT 13.1 12.1 - 14.8 Seconds 08/19/2022 11:31 AM CDT [facility] INR 1.0 See Comment 08/19/2022 11:31 AM CDT [facility] Comment:The suggested therap eutic range for standard coumadin (warfarin) therapy is an INR of 2.0-3.0. For high-risk patients (Mechanical Mitral Valve Prosthesis, etc.), the suggested prophylactic therapeutic range is an INR of 2.5-3.5. Blood BLOOD SPECIMEN / Unknown Venipuncture / Unknown 08/19/2022 10:56 AM CDT 08/19/2022 11:12 AM CDT Héctor Silva MD LAB - COAGULATION OR DERABLES Performing Organization Address [facility]/ZIP Co de Phone Number [address] [address], [place] [phone] * (ABNORMAL) BASIC METABOLIC PANEL (CALCIUM TOTAL) (08/19/2022 10:56 AM CDT) BUN 66(H) 7 - 26 mg/dL 08/19/2022 11:43 AM [facility] Creatinine 4.65(H) 0.56 - 0.96 mg/dL 08/19/2022 11:43 AM [facility] Sodium 127(L) 136 - 145 mmol/L 08/19/2022 11:43 AM [facility] Potassium 4.0 3.5 - 4.5 mmol/L 08/19/2022 11:43 AM [facility] Chloride 99 98 - 107 mmol/L 08/19/2022 11:43 AM [facility] CO2 17(L) 22 - 29 mmol/L 08/19/2022 11:43 AM [facility] Glucose 100 70 - 115 mg/dL 08/19/2022 11:43 AM [facility] Calcium 8.6 8.4 - 10.2 mg/dL 08/19/2022 11:43 AM [facility] Anion Gap 15 8 - 18 08/19/2022 11:43 AM [facility] BUN/Creatinine Ratio 14 7 - 23 08/19/2022 11:43 AM [facility] Osmolality Calculated 283 270 - 300 mOsm/kg 08/19/2022 11:43 AM [facility] eGFR by CKD-EPI 9(L) >=90 mL/min/1.7 3 m2 08/19/2022 11:43 AM [facility] Blood BLOOD SPECIMEN / Unknown Venipuncture / Unknown 08/19/2022 10:56 AM CDT 08/19/2022 11:12 AM T Héctor Silva MD LAB - CHEMISTRY PATRICIA CASIANO [facility] Organization Address City/State/ZIP Co de Phone Number [address] [address], [facility] [phone] * (ABNORMAL) CBC W/O DIFFERENTIAL (08/19/2022 10:56 AM CDT) WBC 4.6 3.5 - 10.5 10? 3 /uL 08/19/2022 11:35 AM [facility] RBC 2.65(L) 3.80 - 5.20 10? 6 /uL 08/19/2022 11:35 AM [facility] Hemoglobin 7.6(L) 12.0 - 15.6 g/dL 08/19/2022 11:35 AM [facility] Hematocrit 22.1(L) 35.0 - 45.0 % 08/19/2022 11:35 AM [facility] MCV 83.4 80.7 - 98.3 fL 08/19/2022 11:35 AM [facility] MCH 28.7 26.7 - 34.0 pg 08/19/2022 11:35 AM [facility] MCHC 34.4 30.8 - 35.9 g/dL 08/19/2022 11:35 AM [facility] Platelet Count 159 150 - 400 10? 3 /uL 08/19/2022 11:35 AM [facility] RDW-SD 40.7 36.0 - 50.0 fL 08/19/2022 11:35 AM [facility] RDW-CV 13.5 11.2 - 14.8 % 08/19/2022 11:35 AM [facility] MPV 9.5 9.4 - 12.9 fL 08/19/2022 11:35 AM [facility] nRBC Absolute 0.00 0 10? 3 /uL 08/19/2022 11:35 AM [facility] nRBC Auto 0.0 0 /100 WBC 08/19/2022 11:35 AM [facility] Blood BLOOD SPECIMEN / Unknown Venipuncture / Unknown 08/19/2022 10:56 AM CDT 08/19/2022 11:12 AM CDT Héctor Silva MD LAB - HEMATOLOGY ORD ERABLES [facility] [address] [place] [address], [facility] [phone] * IMMUNOFIXATION BLOOD (08/19/2022 10:56 AM CDT) Immunofixation Serum Normal Pattern Normal Pattern 08/26/2022 10:48 PM CDT [facility] Comment: No monoclonal immunoglobulin detected by serum immunosubtraction. Terry Burnham PhD, [facility] Clinical [employer] directory clerk *The electrophoresis pattern and the interpretation have been reviewed and verified by the teaching physician. Blood BLOOD SPECIMEN / Unknown Venipuncture / Unknown 08/19/2022 10:56 AM CDT 08/19/2022 11:02 AM CDT Héctor Silva MD LAB - CHEMISTRY PATRICIA CASIANO [facility] Organization Address City/State/ZIP Co de Phone Number [address] [address], [facility] [phone] * (ABNORMAL) PROTEIN ELECTROPHORESIS BLOOD (08/19/2022 10:56 AM CDT) Interpretation Serum PE Normal Pattern Normal Pattern 08/26/2022 10:48 PM CDT [facility] Comment: Serum capillary electrophoresis shows characteristic [...] - 8.3 g/dL 08/26/2022 10:48 PM CDT [facility] Albumin 3.1(L) 3.3 - 5.6 g/dL 08/26/2022 10:48 PM CDT [facility] Alpha-1 Globulins 0.3 0.2 - 0.4 g/dL 08/26/2022 10:48 PM CDT [facility] Alpha-2 Globulins 0.7 0.5 - 1.0 g/dL 08/26/2022 10:48 PM CDT [facility] Beta Globulins 0.5(L) 0.6 - 1.1 g/dL 08/26/2022 10:48 PM CDT [facility] Gamma Globulins 0.3(L) 0.6 - 1.6 g/dL 08/26/2022 10:48 PM CDT [facility] Blood BLOOD SPECIMEN / Unknown Venipuncture / Unknown 08/19/2022 10:56 AM CDT 08/19/2022 11:02 AM CDT Héctor Silva MD LAB - CHEMISTRY PATRICIA CASIANO Performing Organization Address City/[facility]/ZIP Co de Phone Number [facility] [address] [place] [id number], [facility] [phone] * TRANSFUSE RED BLOOD CELL LEUKOREDUCED UNIT(S) (08/19/2022 2:37 AM CDT) Aroldo Rivera APRN-ELECT[employer] PHOTO MASK TECHNICIAN NURSING - BLOOD NC OD TRANSFUSION * TRANSFUSE RED BLOOD CELL LEUKOREDUCED UNIT(S), 1 Units (08/19/2022 2:37 AM CDT) Aroldo Rivera APRN-ELECTRON BEAM PHOTO MASK TECHNICIAN NURSING - BLOOD NC OD TRANSFUSION * PREPARE (CROSSMATCH) RBC UNIT(S), 1 Units (08/18/2022 10:48 PM CDT) [facility] Unit Description AS3 LR PRBC [facility] Unit ABO A [facility] Unit Rh NEG [facility] Product Number R14 [facility] Unit Donor # [id number] [facility] Unit Status transfused [facility] Product Code [id number] [facility] Blood Type Barcode 0600 [facility] Expiration Date [id number] S BLOOD BANK LAB Blood Bank BLOOD SPECIMEN / Unknown 08/18/2022 3:44 PM CDT Aroldo Rivera APRN-ELECTRON BEAM PHOTO MASK TECHNICIAN LAB - BLOOD BANK O RDERABLES Performing Organization Address [facility]/ZIP Co de Phone Number [facility] [address] [place] [address], [place] [phone] * BLOOD TYPE VERIFICATION (08/18/2022 7:52 PM CDT) ABO Rh A NEG 08/18/2022 9:1 4 PM CDT [facility] Blood Bank BLOOD SPECIMEN / Unknown Lab Venipuncture / Unknown 08/18/2022 7:52 PM CDT 08/18/2022 7:58 PM CDT Katherine Lai MD LAB - BLOOD BANK ORD ERABLES [facility] [address] [place] [address], [place] [phone] * TYPE + SCREEN PANEL (08/18/2022 2:30 PM CDT) Antibody Screen NEG 4:28 PM CDT [facility] ABO Rh A NEG 08/18/2022 4:28 PM CDT [facility] Blood Bank BLOOD SPECIMEN / Unknown Lab Venipuncture / Unknown 08/18/2022 2:30 PM CDT 08/18/2022 3:44 PM CDT Aroldo WOOD LAB - BLOOD BANK O RDERABLES Performing Organization Address City/[facility]/ZIP Co de Phone Number [facility] [address] [place] [address], [place] [phone] * (ABNORMAL) PHOSPHORUS BLOOD (08/18/2022 10:11 AM CDT) Phosphorus 5.3(H) 2.9 - 5.1 mg/dL 08/18/2022 10:55 AM CDT [facility] Blood BLOOD SPECIMEN / Unknown Lab Venipuncture / Unknown 08/18/2022 10:11 AM CDT 08/18/2022 10:29 AM CDT Héctor Silva MD LAB - CHEMISTRY PATRICIA CASIANO [facility] [address] [place] [address], [place] [phone] * MAGNESIUM BLOOD (08/18/2022 10:11 AM CDT) Pathologist [facility] Magnesium 2.1 1.6 - 2.6 mg/dL 08/18/2022 10:55 AM CDT [facility] Blood BLOOD SPECIMEN / Unknown Lab Venipuncture / Unknown 08/18/2022 10:11 AM CDT 08/18/2022 10:29 AM CDT Héctor Silva MD LAB - CHEMISTRY ORDE STEPHENIE Performing Organization Address City/[facility]/ZIP Co de Phone Number [facility] [address] [place] [address], [facility] [phone] * PT-INR [facility] (08/18/2022 10:11 AM CDT) Pathologist [facility] PT 13.1 12.1 - 14.8 Seconds 08/18/2022 10:52 AM CDT [facility] INR 1.0 See Comment 08/18/2022 10:52 AM T [facility] Comment:The suggested therap eutic range for standard coumadin (warfarin) therapy is an INR of 2.0-3.0. For high-risk patients (Mechanical Mitral Valve Prosthesis, etc.), the suggested prophylactic therapeutic range is an INR of 2.5-3.5. Blood BLOOD SPECIMEN / Unknown Lab Venipuncture / Unknown 08/18/2022 10:11 AM CDT 08/18/2022 10:29 AM CDT Héctor Silva MD LAB - COAGULATION OR DERABLES [facility] [address] [place] [address], [facility] [phone] * (ABNORMAL) BASIC METABOLIC PANEL (CALCIUM TOTAL) (08/18/2022 10:11 AM CDT) Pathologist [facility] BUN 63(H) 7 - 26 mg/dL 08/18/2022 10:55 AM CDT [facility] Creatinine 4.42(H) 0.56 - 0.96 mg/dL 08/18/2022 10:55 [facility] Sodium 132(L) 136 - 145 mmol/L 08/18/2022 10:55 [facility] Potassium 3.8 3.5 - 4.5 mmol/L 08/18/2022 10:55 [facility] Chloride 102 98 - 107 mmol/L 08/18/2022 10:55 [facility] CO2 19(L) 22 - 29 mmol/L 08/18/2022 10:55 [facility] Glucose 109 70 - 115 mg/dL 08/18/2022 10:55 [facility] Calcium 8.3(L) 8.4 - 10.2 mg/dL 08/18/2022 10:55 [facility] Anion Gap 15 8 - 18 08/18/2022 10:55 [facility] BUN/Creatinine Ratio 14 7 - 23 08/18/2022 10:55 [facility] Osmolality Calculated 293 270 - 300 mOsm/kg 08/18/2022 10:55 [facility] eGFR by CKD-EPI 10(L) >=90 mL/min/1.7 3 m2 08/18/2022 10:55 [facility] Blood BLOOD SPECIMEN / Unknown Lab Venipuncture / Unknown 08/18/2022 10:11 AM CDT 08/18/2022 10:29 AM T Héctor Silva MD LAB - CHEMISTRY PATRICIA CASIANO [facility] Organization Address City/State/[facility] Co de Phone Number [facility] [address] [place] [phone], [facility] [phone] * (ABNORMAL) CBC W/O DIFFERENTIAL (08/18/2022 10:11 AM CDT) WBC 4.2 3.5 - 10.5 10? 3 /uL 08/18/2022 10:33 [facility] RBC 2.25(L) 3.80 - 5.20 10? 6 /uL 08/18/2022 10:33 [facility] Hemoglobin 6.2(L) 12.0 - 15.6 g/dL 08/18/2022 10:33 [facility] Hematocrit 19.3(L) 35.0 - 45.0 % 08/18/2022 10:33 [facility] MCV 85.8 80.7 - 98.3 fL 08/18/2022 10:33 AM [facility] MCH 27.6 26.7 - 34.0 pg 08/18/2022 10:33 AM [facility] MCHC 32.1 30.8 - 35.9 g/dL 08/18/2022 10:33 [facility] Platelet Count 160 150 - 400 10? 3 /uL 08/18/2022 10:33 AM [facility] RDW-SD 42.2 36.0 - 50.0 fL 08/18/2022 10:33 AM [facility] RDW-CV 13.5 11.2 - 14.8 % 08/18/2022 10:33 AM [facility] MPV 9.6 9.4 - 12.9 fL 08/18/2022 10:33 [facility] nRBC Absolute 0.00 0 10? 3 /uL 08/18/2022 10:33 [facility] nRBC Auto 0.0 0 /100 WBC 08/18/2022 10:33 [facility] Blood BLOOD SPECIMEN / Unknown Lab Venipuncture / Unknown 08/18/2022 10:11 AM CDT 08/18/2022 10:29 AM CDT Héctor Silva MD LAB - HEMATOLOGY ORD ERABLES [facility] [address] [place] [phone], [facility] [phone] * (ABNORMAL) PTH INTACT W/O CALCIUM (08/17/2022 7:46 AM CDT) PTH Intact 346.2(H) 8.0 - 77.0 pg/mL 08/17/2022 10:13 [facility] Blood BLOOD SPECIMEN / Unknown Lab Venipuncture / Unknown 08/17/2022 7:46 AM CDT 08/17/2022 9:38 AM CDT Héctor Silva MD LAB - CHEMISTRY PATRICIA CASIANO Performing Organization Address City/[facility]/ZIP Co de Phone Number [address] [address], [facility] [phone] * FERRITIN (08/17/2022 7:46 AM CDT) Pathologist [facility] Ferritin 180 13 - 204 ng/mL 08/17/2022 10:33 AM CDT [facility] Blood BLOOD SPECIMEN / Unknown Lab Venipuncture / Unknown 08/17/2022 7:46 AM CDT 08/17/2022 9:37 AM CDT Héctor Silva MD LAB - CHEMISTRY PATRICIA CASIANO Performing Organization Address City/[facility]/ZIP Co de Phone Number [address] [address], [facility] [phone] * (ABNORMAL) CBC W/O DIFFERENTIAL (08/17/2022 4:26 AM CDT) WBC 6.3 3.5 - 10.5 10? 3 /uL 08/17/2022 4:40 AM CDT [facility] RBC 2.57(L) 3.80 - 5.20 10? 6 /uL 08/17/2022 4:40 AM CDT [facility] Hemoglobin 7.1(L) 12.0 - 15.6 g/dL 08/17/2022 4:40 AM T [facility] Hematocrit 20.8(L) 35.0 - 45.0 % 08/17/2022 4:40 AM T [facility] MCV 80.9 80.7 - 98.3 fL 08/17/2022 4:40 AM CDT [facility] MCH 27.6 26.7 - 34.0 pg 08/17/2022 4:40 AM CDT [facility] MCHC 34.1 30.8 - 35.9 g/dL 08/17/2022 4:40 [facility] Platelet Count 197 150 - 400 10? 3 /uL 08/17/2022 4:40 AM [facility] RDW-SD 38.6 36.0 - 50.0 fL 08/17/2022 4:40 AM [facility] RDW-CV 13.2 11.2 - 14.8 % 08/17/2022 4:40 AM [facility] MPV 9.2(L) 9.4 - 12.9 fL 08/17/2022 4:40 AM [facility] nRBC Absolute 0.00 0 10? 3 /uL 08/17/2022 4:40 AM [facility] nRBC Auto 0.0 0 /100 WBC 08/17/2022 4:40 AM [facility] Blood BLOOD SPECIMEN / Unknown 08/17/2022 4:26 AM CDT 08/17/2022 4:27 AM CDT Héctor Silva MD LAB - HEMATOLOGY ORD ERABLES Performing Organization Address [facility] Co de Phone Number [facility] [address] [place] [address] [phone] * PT-INR [facility] (08/17/2022 4:20 AM CDT) PT 12.9 12.1 - 14.8 Seconds 08/17/2022 4:48 AM [facility] INR 1.0 See Comment 08/17/2022 4:48 AM [facility] Comment:The suggested therap eutic range for standard coumadin (warfarin) therapy is an INR of 2.0-3.0. For high-risk patients (Mechanical Mitral Valve Prosthesis, etc.), the suggested prophylactic therapeutic range is an INR of 2.5-3.5. Blood BLOOD SPECIMEN / Unknown 08/17/2022 4:20 AM CDT 08/17/2022 4:23 AM CDT Héctor Silva MD LAB - COAGULATION OR DERABLES Performing Organization Address [facility]/ZIP Co de Phone Number [address] [address], [place] [phone] * (ABNORMAL) ALBUMIN BLOOD (08/17/2022 4:05 AM CDT) Albumin 2.8(L) 3.4 - 5.0 g/dL 08/17/2022 2:34 PM CDT [facility] Blood BLOOD SPECIMEN / Unknown Lab Venipuncture / Unknown 08/17/2022 4:05 AM CDT 08/17/2022 4:20 AM CDT Aroldo WOOD LAB - CHEMISTRY OR DERABLES Performing Organization Address [facility]/ZIP Co de Phone Number [address] [address], [place] [phone] * (ABNORMAL) PROTEIN TOTAL BLOOD (08/17/2022 4:05 AM CDT) Protein Total 5.1(L) 6.0 - 8.3 g/dL 08/17/2022 2:34 PM CDT [facility] Blood BLOOD SPECIMEN / Unknown Lab Venipuncture / Unknown 08/17/2022 4:05 AM CDT 08/17/2022 4:20 AM CDT Héctor Silva MD LAB - CHEMISTRY PATRICIA CASIANO Performing Organization Address City/[facility]/ZIP Co de Phone Number [address] [address], [place] [phone] * PHOSPHORUS BLOOD (08/17/2022 4:05 AM CDT) Phosphorus 4.4 2.9 - 5.1 mg/dL 08/17/2022 4:48 AM CDT [facility] Blood BLOOD SPECIMEN / Unknown Lab Venipuncture / Unknown 08/17/2022 4:05 AM CDT 08/17/2022 4:20 AM CDT Héctor Silva MD LAB - CHEMISTRY PATRICIA CASIANO Performing Organization Address City/[facility]/ZIP Co de Phone Number [facility] [address] [place] [address], [place] [phone] * MAGNESIUM BLOOD (08/17/2022 4:05 AM CDT) Magnesium 2.1 1.6 - 2.6 mg/dL 08/17/2022 4:48 AM [facility] Blood BLOOD SPECIMEN / Unknown Lab Venipuncture / Unknown 08/17/2022 4:05 AM CDT 08/17/2022 4:20 AM CDT Héctor Silva MD LAB - CHEMISTRY PATRICIA CASIANO Performing Organization Address [facility]/ZIP Co de Phone Number [facility] [address] [place] [address], [place] [phone] * (ABNORMAL) BASIC METABOLIC PANEL (CALCIUM TOTAL) (08/17/2022 4:05 AM CDT) BUN 58(H) 7 - 26 mg/dL 08/17/2022 4:48 AM [facility] Creatinine 4.22(H) 0.56 - 0.96 mg/dL 08/17/2022 4:48 AM [facility] Sodium 134(L) 136 - 145 mmol/L 08/17/2022 4:48 AM [facility] Potassium 3.0(L) 3.5 - 4.5 mmol/L 08/17/2022 4:48 AM [facility] Chloride 105 98 - 107 mmol/L 08/17/2022 4:48 AM [facility] CO2 16(L) 22 - 29 mmol/L 08/17/2022 4:48 AM [facility] Glucose 105 70 - 115 mg/dL 08/17/2022 4:48 AM [facility] Calcium 8.7 8.4 - 10.2 mg/dL 08/17/2022 4:48 AM [facility] Anion Gap 16 8 - 18 08/17/2022 4:48 AM CDT [facility] BUN/Creatinine Ratio 14 7 - 23 08/17/2022 4:48 AM T [facility] Osmolality Calculated 295 270 - 300 mOsm/kg 08/17/2022 4:48 AM T [facility] eGFR by CKD-EPI 10(L) >=90 mL/min/1.7 3 m2 08/17/2022 4:48 AM T [facility] Blood BLOOD SPECIMEN / Unknown Lab Venipuncture / Unknown 08/17/2022 4:05 AM CDT 08/17/2022 4:20 AM CDT Héctor Silva MD LAB - CHEMISTRY ORDE RABLES Performing Organization Address City/[facility]/ZIP Co de Phone Number [address] [address], [facility] [phone] * LYTES (NA K) URINE RANDOM PANEL (08/16/2022 9:42 AM CDT) Sodium Urine 117 Not Established mmol/L 08/16/2022 10:08 AM T [facility] Potassium Urine 49.7 Not Established mmol/L 08/16/2022 10:08 AM T [facility] Urine URINE SPECIMEN OBTAINED BY CLEAN CATCH PROCEDURE / Unknown Collection / Unknown 08/16/2022 9:42 AM CDT 08/16/2022 9:47 AM CDT Héctor Silva MD LAB - URINE CHEMISTR Y ORDERABLES Performing Organization Address City/[facility]/ZIP Co de Phone Number [address] [address], [place] [phone] * (ABNORMAL) URINALYSIS W/MICROSCOPIC NO CULTURE (08/16/2022 9:42 AM CDT) Color UA Yellow Straw, Yellow 08/16/2022 9:57 AM T [facility] Clarity UA t Cloudy(A) Clear 08/16/2022 9:57 AM T [facility] Specific Foster UA 1.014 1.005 - 1.030 08/16/2022 9:57 AM [facility] pH UA 6.0 5.0 - 8.0 pH 08/16/2022 9:57 AM [facility] Protein UA 3+(A) Negative 08/16/2022 9:57 AM [facility] Glucose UA Negative Negative 08/16/2022 9:57 AM [facility] Ketone UA Negative Negative 08/16/2022 9:57 AM [facility] Bilirubin UA Negative Negative 08/16/2022 9:57 AM [facility] Blood UA Negative Negative 08/16/2022 9:57 AM [facility] Nitrite UA Negative Negative 08/16/2022 9:57 AM [facility] Leukocyte Esterase Negative Negative 08/16/2022 9:57 AM [facility] Urobilinogen UA Negative Negative mg/dL 08/16/2022 9:57 AM [facility] RBC UA 0-2 None Seen, 0-2, 3-5 /HPF 08/16/2022 9:57 AM [facility] WBC UA 0-5 None Seen, 0-5 /HPF 08/16/2022 9:57 AM [facility] Bacteria UA Trace(A) None /HPF 08/16/2022 9:57 AM [facility] Squamous Epithelial Cells UA None Seen None Seen, 0-2, 3-5 /HPF 08/16/2022 9:57 AM [facility] Hyaline Casts UA 0-2 None Seen, 0-2 /LPF 08/16/2022 9:57 AM [facility] Urine URINE SPECIMEN OBTAINED BY SINGLE CATHETERIZATION OF URINARY BLADDER / Unknown Collection / Unknown 08/16/2022 9:42 AM CDT 08/16/2022 9:47 AM [facility] - 08/16/2022 9:57 AM CDT Héctor Silva MD LAB - URINALYSIS ORD ERABLES [facility] [address] [place] [address], [place] [phone] * IRON + TRANSFERRIN PANEL (08/16/2022 9:36 AM CDT) Iron 77 40 - 150 ug/dL 08/16/2022 11:45 AM CDT [facility] Transferrin 198 174 - 382 mg/dL 08/16/2022 11:45 AM CDT [facility] Transferrin Saturation % 31 16 - 50 % 08/16/2022 11:45 AM CDT [facility] TIBC Calculated 248 240 - 450 ug/dL 08/16/2022 11:45 AM CDT [facility] Blood BLOOD SPECIMEN / Unknown Venipuncture / Unknown 08/16/2022 9:36 AM CDT 08/16/2022 9:46 AM CDT Héctor Silva MD LAB - CHEMISTRY PATRICIA CASIANO [facility] [address] [place] [address], [facility] [phone] * ECHO COMPLETE W BUBBLE STUDY (08/16/2022 [...] MD DIAGNOSTIC IMAGING O RDERABLES * PT-INR [facility] (08/16/2022 12:44 AM CDT) PT 13.2 12.1 - 14.8 Seconds 08/16/2022 1:15 AM CDT [facility] INR 1.0 See Comment 08/16/2022 1:15 AM CDT [facility] Comment:The suggested therap eutic range for standard coumadin (warfarin) therapy is an INR of 2.0-3.0. For high-risk patients (Mechanical Mitral Valve Prosthesis, etc.), the suggested prophylactic therapeutic range is an INR of 2.5-3.5. Blood BLOOD SPECIMEN / Unknown Venipuncture / Unknown 08/16/2022 12:44 AM CDT 08/16/2022 12:53 AM CDT Héctor Silva MD LAB - COAGULATION OR DERABLES [facility] [address] [place] [address], [facility] [phone] * (ABNORMAL) BASIC METABOLIC PANEL (CALCIUM TOTAL) (08/16/2022 12:44 AM CDT) BUN 56(H) 7 - 26 mg/dL 08/16/2022 1:19 AM [facility] Creatinine 4.27(H) 0.56 - 0.96 mg/dL 08/16/2022 1:19 AM [facility] Sodium 139 136 - 145 mmol/L 08/16/2022 1:19 AM [facility] Potassium 3.1(L) 3.5 - 4.5 mmol/L 08/16/2022 1:19 AM [facility] Chloride 106 98 - 107 mmol/L 08/16/2022 1:19 AM [facility] CO2 18(L) 22 - 29 mmol/L 08/16/2022 1:19 AM [facility] Glucose 105 70 - 115 mg/dL 08/16/2022 1:19 AM [facility] Calcium 8.5 8.4 - 10.2 mg/dL 08/16/2022 1:19 AM [facility] Anion Gap 18 8 - 18 08/16/2022 1:19 AM [facility] BUN/Creatinine Ratio 13 7 - 23 08/16/2022 1:19 AM [facility] Osmolality Calculated 304(H) 270 - 300 mOsm/kg 08/16/2022 1:19 AM [facility] eGFR by CKD-EPI 10(L) >=90 mL/min/1.7 3 m2 08/16/2022 1:19 AM [facility] Blood BLOOD SPECIMEN / Unknown Venipuncture / Unknown 08/16/2022 12:44 AM CDT 08/16/2022 12:53 AM T Héctor Silva MD LAB - CHEMISTRY PATRICIA CASIANO [facility] Organization Address City/State/ZIP Co de Phone Number [facility] [address] [place] [phone], [facility] [phone] * (ABNORMAL) CBC W/O DIFFERENTIAL (08/16/2022 12:44 AM CDT) WBC 6.8 3.5 - 10.5 10? 3 /uL 08/16/2022 1:04 AM [facility] RBC 2.50(L) 3.80 - 5.20 10? 6 /uL 08/16/2022 1:04 AM [facility] Hemoglobin 7.0(L) 12.0 - 15.6 g/dL 08/16/2022 1:04 AM [facility] Hematocrit 21.0(L) 35.0 - 45.0 % 08/16/2022 1:04 AM [facility] MCV 84.0 80.7 - 98.3 fL 08/16/2022 1:04 AM [facility] MCH 28.0 26.7 - 34.0 pg 08/16/2022 1:04 AM [facility] MCHC 33.3 30.8 - 35.9 g/dL 08/16/2022 1:04 AM [facility] Platelet Count 196 150 - 400 10? 3 /uL 08/16/2022 1:04 AM [facility] RDW-SD 41.1 36.0 - 50.0 fL 08/16/2022 1:04 AM [facility] RDW-CV 13.3 11.2 - 14.8 % 08/16/2022 1:04 AM [facility] MPV 9.3(L) 9.4 - 12.9 fL 08/16/2022 1:04 AM [facility] nRBC Absolute 0.00 0 10? 3 /uL 08/16/2022 1:04 AM [facility] nRBC Auto 0.0 0 /100 WBC 08/16/2022 1:04 AM [facility] Blood BLOOD SPECIMEN / Unknown Venipuncture / Unknown 08/16/2022 12:44 AM CDT 08/16/2022 12:51 AM CDT Héctor Silva MD LAB - HEMATOLOGY ORD ERABLES [facility] [address] [place] [phone], [facility] [phone] * (ABNORMAL) PHOSPHORUS BLOOD (08/16/2022 12:44 AM CDT) [facility] Signature Phosphorus 5.2(H) 2.9 - 5.1 mg/dL 08/16/2022 1:19 AM CDT [facility] Blood BLOOD SPECIMEN / Unknown Venipuncture / Unknown 08/16/2022 12:44 AM CDT 08/16/2022 12:53 AM CDT Héctor Silva MD LAB - CHEMISTRY PATRICIA CASIANO Performing Organization Address City/[facility]/ZIP Co de Phone Number [address] [address], [facility] [phone] * MAGNESIUM BLOOD (08/16/2022 12:44 AM CDT) Magnesium 2.1 1.6 - 2.6 mg/dL 08/16/2022 1:19 AM CDT [facility] Blood BLOOD SPECIMEN / Unknown Venipuncture / Unknown 08/16/2022 12:44 AM CDT 08/16/2022 12:53 AM CDT Héctor Silva MD LAB - CHEMISTRY PATRICIA CASINAO Performing Organization Address [facility]/ZIP Co de Phone Number [address] [address], [facility] [phone] * HEMOGLOBIN A1C (08/16/2022 12:44 AM CDT) Hemoglobin A1c 5.4 <=5.6 % 08/16/2022 10:18 AM T [facility] Estimated Average Glucose 108 mg/dL 08/16/2022 10:18 AM T [facility] Comment: HbA1c Interpretation: Normal : < 5.7% Pre-diabetes: 5.7-6.4% Diabetes: Equal to or greater than 6.5% Test results diagnostic of diabetes should be repeated for confirmation. Treatment target values recommended by ADA and other clinical organizations should be used to evaluate metabolic control in patients. Reference: [place] [employer], Standards of Care in Diabetes [...] Silva MD LAB - CHEMISTRY PATRICIA CASIANO [facility] Organization Address City/State/ZIP Co de Phone Number [facility] [address] [place] [phone], [facility] [phone] * MRI ANGIO BRAIN ARTERIAL WO CONT [...] DATE/TIME OF EXAM: ??08/15/2022 10:25 PM, LOCATION ??[facility] INDICATION: I61.9: Hemorrhagic stroke (CMS/HCC) ADDITIONAL CLINICAL INFORMATION: Ordering Provider Reason For Exam: ??Hemiorrhagic stroke (accession [id number]), vascular malformation (accession [id number]) Technologist Note: ??Does the patient have metal implants or stents?->No Additional: ??Kirsty Gutierrez a 81 year old F who developed sudden on nausea and vomiting on 08/15. 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 Transferred to [facility] for further management. CONTRAST: ??GADOTERATE MEGLUMINE [...] DATE/TIME OF EXAM: 08/15/2022 10:25 PM, LOCATION [facility] INDICATION: I61.9: Hemorrhagic stroke (CMS/HCC) ADDITIONAL CLINICAL INFORMATION: Ordering Provider Reason For Exam: Hemiorrhagic stroke (accession [id number]), vascular malformation (accession [id number]) Technologist Note: Does the patient have metal implants or stents?->No Additional: Kirsty Gutierrez a 81 year old F who developed sudden on nausea and vomiting on 08/15. Went to an OSH where CT head showedpontine ICH. Transferred to [facility] for further management. CONTRAST: GADOTERATE MEGLUMINE [...] DATE/TIME OF EXAM: ??08/15/2022 10:25 PM, LOCATION ??[facility] INDICATION: I61.9: Hemorrhagic stroke (CMS/HCC) ADDITIONAL CLINICAL INFORMATION: Ordering Provider Reason For Exam: ??Hemiorrhagic stroke (accession [id number]), vascular malformation (accession [id number]) Technologist Note: ??Does the patient have metal implants or stents?->No Additional: ??Kirsty Gutierrez a 81 year old F who developed sudden on nausea and vomiting on 08/15. 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 Transferred to [facility] for further management. CONTRAST: ??GADOTERATE MEGLUMINE [...] DATE/TIME OF EXAM: 08/15/2022 10:25 PM, LOCATION [facility] INDICATION: I61.9: Hemorrhagic stroke (CMS/HCC) ADDITIONAL CLINICAL INFORMATION: Ordering Provider Reason For Exam: Hemiorrhagic stroke (accession [id number]), vascular malformation (accession [id number]) Technologist Note: Does the patient have metal implants or stents?->No Additional: Kirsty Gutierrez a 81 year old F who developed sudden on nausea and vomiting on 08/15. Went to an OSH where CT head showedpontine ICH. Transferred to [facility] for further management. CONTRAST: GADOTERATE MEGLUMINE [...] BPM H MUSE Atrial Rate 75 BPM [facility] P-R Interval 190 ms [facility] QRS Duration ms 88 ms [facility] Q-T Interval ms 466 ms [facility] QTC Calculation (Bezet) 520 ms [facility] Calculated P [place] 78 degrees SL MUSE Calculated R [place] 47 degrees SL MUSE Calculated T [place] 44 degrees [facility] Interpretation EKG SINUS RHYTHM WITH MARKED SINUS ARRYTHMIA NONSPECIFIC ST AND T WAVE ABNORMALITY PROLONGED QT ABNORMAL ECG NO PRIOR TRACING AVAILABLE Confirmed by [place] ([id number]) on 08/18/2022 1:30:55 PM [facility] 08/15/2022 11:2 9 AM CDT 08/18/2022 1:30 PM CDT Héctor Silva MD ECG ORDERABLES Performing Organization Address City/[facility]/ZIP Co de Phone Number [facility] * (ABNORMAL) TROPONIN I (08/15/2022 8:17 AM CDT) Troponin I 0.037(H) <0.032 ng/mL 08/15/2022 8:45 AM CDT [facility] Blood BLOOD SPECIMEN / Unknown Venipuncture / Unknown 08/15/2022 8:17 AM CDT 08/15/2022 8:22 AM CDT Héctor Silva MD LAB - CHEMISTRY PATRICIA CASIANO Performing Organization Address [facility] Co de Phone Number [address] [phone], [facility] [phone] * TROPONIN I (08/15/2022 6:17 AM CDT) Troponin I 0.030 <0.032 ng/mL 08/15/2022 6:50 AM CDT [facility] Blood BLOOD SPECIMEN / Unknown Venipuncture / Unknown 08/15/2022 6:17 AM CDT 08/15/2022 6:30 AM CDT Héctor Silva MD LAB - CHEMISTRY PATRICIA CASIANO Performing Organization Address [facility] Co de Phone Number [address] [phone], [facility] [phone] * PT-INR [facility] (08/15/2022 3:39 AM CDT) PT 13.1 12.1 - 14.8 Seconds 08/15/2022 4:08 AM CDT [facility] INR 1.0 See Comment 08/15/2022 4:08 AM CDT [facility] Comment:The suggested therap eutic range for standard coumadin (warfarin) therapy is an INR of 2.0-3.0. For high-risk patients (Mechanical Mitral Valve Prosthesis, etc.), the suggested prophylactic therapeutic range is an INR of 2.5-3.5. Blood BLOOD SPECIMEN / Unknown Venipuncture / Unknown 08/15/2022 3:39 AM CDT 08/15/2022 3:45 AM CDT Héctor Silva MD LAB - COAGULATION OR DERABLES Performing Organization Address [facility] Co de Phone Number [facility] [address] [place] [address], [facility] [phone] * (ABNORMAL) BASIC METABOLIC PANEL (CALCIUM TOTAL) (08/15/2022 3:39 AM CDT) BUN 55(H) 7 - 26 mg/dL 08/15/2022 4:11 [facility] Creatinine 3.74(H) 0.56 - 0.96 mg/dL 08/15/2022 4:11 [facility] Sodium 139 136 - 145 mmol/L 08/15/2022 4:11 [facility] Potassium 3.3(L) 3.5 - 4.5 mmol/L 08/15/2022 4:11 [facility] Chloride 108(H) 98 - 107 mmol/L 08/15/2022 4:11 [facility] CO2 19(L) 22 - 29 mmol/L 08/15/2022 4:11 [facility] Glucose 149(H) 70 - 115 mg/dL 08/15/2022 4:11 [facility] Calcium 9.6 8.4 - 10.2 mg/dL 08/15/2022 4:11 [facility] Anion Gap 15 8 - 18 08/15/2022 4:11 [facility] BUN/Creatinine Ratio 15 7 - 23 08/15/2022 4:11 [facility] Osmolality Calculated 306(H) 270 - 300 mOsm/kg 08/15/2022 4:11 [facility] eGFR by CKD-EPI 12(L) >=90 mL/min/1.7 3 m2 08/15/2022 4:11 [facility] Blood BLOOD SPECIMEN / Unknown Venipuncture / Unknown 08/15/2022 3:39 AM CDT 08/15/2022 3:45 AM CDT Héctor Silva MD LAB - CHEMISTRY PATRICIA CASIANO [facility] Organization Address [facility]/State/ZIP Co de Phone Number [facility] [address] [place] [phone], [facility] [phone] * (ABNORMAL) CBC W/O DIFFERENTIAL (08/15/2022 3:39 AM CDT) WBC 6.8 3.5 - 10.5 10? 3 /uL 08/15/2022 3:59 [facility] RBC 3.00(L) 3.80 - 5.20 10? 6 /uL 08/15/2022 3:59 [facility] Hemoglobin 8.4(L) 12.0 - 15.6 g/dL 08/15/2022 3:59 [facility] Hematocrit 24.8(L) 35.0 - 45.0 % 08/15/2022 3:59 [facility] MCV 82.7 80.7 - 98.3 fL 08/15/2022 3:59 [facility] MCH 28.0 26.7 - 34.0 pg 08/15/2022 3:59 [facility] MCHC 33.9 30.8 - 35.9 g/dL 08/15/2022 3:59 [facility] Platelet Count 203 150 - 400 10? 3 /uL 08/15/2022 3:59 [facility] RDW-SD 40.0 36.0 - 50.0 fL 08/15/2022 3:59 [facility] RDW-CV 13.2 11.2 - 14.8 % 08/15/2022 3:59 [facility] MPV 9.1(L) 9.4 - 12.9 fL 08/15/2022 3:59 [facility] nRBC Absolute 0.00 0 10? 3 /uL 08/15/2022 3:59 AM CDT [facility] nRBC Auto 0.0 0 /100 WBC 08/15/2022 3:59 AM CDT [facility] Blood BLOOD SPECIMEN / Unknown Venipuncture / Unknown 08/15/2022 3:39 AM CDT 08/15/2022 3:45 AM CDT Héctor Silva MD LAB - HEMATOLOGY ORD ERABLES Performing Organization Address City/[facility]/ZIP Co de Phone Number [facility] [address] [place] [phone], [facility] [phone] * (ABNORMAL) TROPONIN I (08/15/2022 3:39 AM CDT) Troponin I 0.035(H) <0.032 ng/mL 08/15/2022 4:18 AM CDT [facility] Blood BLOOD SPECIMEN / Unknown Venipuncture / Unknown 08/15/2022 3:39 AM CDT 08/15/2022 3:45 AM CDT Héctor Silva MD LAB - CHEMISTRY ORDE STEPHENIE Performing Organization Address [facility] Co de Phone Number [address] [address], [facility] [phone] documented in this encounter Visit Diagnoses Diagnosis [...] 8 hours. $ Given 09/09/2022 5:07 AM [facility] 3 mL $ Given 09/08/2022 8:08 PM [facility] 3 mL $ Given 09/08/2022 3:20 PM [facility] 3 mL acetaminophen (Tylenol) tablet 500 mg [...] Until Discontinued $ Given 09/08/2022 8:06 PM [facility] 10 mg $ Given 09/07/2022 8:46 PM [facility] 10 mg $ Given 09/06/2022 9:37 PM [facility] 10 mg ampicillin-sulbactam (Unasyn) 3 g in [...] 1 dose, On Tue08/22/22 at 1500, Barium Honey/[place] $ Given - Contrast 08/22/2022 2:20 PM CDT 20 mL barium (Varibar) 40 % suspension Oral, ONCE, 1 dose, On Tue09/01/22 at 1030 $ Given - Contrast 09/01/2022 10:17 AM CDT 50 mL carvedilol (Coreg) tablet 12.5 mg 12.5 mg, Oral, 2 TIMES DAILY WITH MEALS, First dose on Tue09/03/22 at 1300, Until Discontinued, Take with food $ Given 09/08/2022 5:07 PM [facility] 12.5 mg $ Given 09/08/2022 7:52 AM [facility] 12.5 mg $ Given 09/07/2022 6:42 PM [facility] 12.5 mg carvedilol (Coreg) tablet 25 mg 25 mg, Oral, 2 TIMES DAILY WITH MEALS, First dose (after last modification) on [place] 09/09/22 at 0845, Until Discontinued, Take with food $ Given 09/09/2022 8:51 AM [facility] 25 mg carvedilol (Coreg) tablet 6.25 mg [...] to MRI. $ Applied 09/09/2022 8:58 AM [facility] 0.2 mg Right Arm $ Applied 09/02/2022 [...] vial. Refrigerate $ Given 09/09/2022 3:12 PM [facility] 8,000 Units furosemide (Lasix) injection 20 mg [...] at 1100 $ Given 09/05/2022 1:53 PM [facility] 1 suppository heparin injection 5,000 Units 5,000 [...] Subcutaneous, 3 TIMES DAILY, First dose on [facility] 08/21/22 at 1445, Until Discontinued $ Given 09/09/2022 8:51 AM [facility] 5,000 Units Abdominal Tissue $ Given 09/08/2022 8:07 PM [facility] 5,000 Units A bd Left Lower Quadrant $ Given 09/08/2022 3:18 PM [facility] 5,000 Units A bd Right Lower Quadrant hydrALAZINE (Apresoline) injection 15 mg 15 mg, Intravenous, EVERY 6 HOURS, 2 doses, First dose (after last modification) on [facility] 08/21/22 at 2330, Last dose on [place] 08/22/22 at 0600 $ Given 08/22/2022 6:00 AM CDT 15 mg $ Given 08/21/2022 11:45 PM CDT 15 mg hydrALAZINE (Apresoline) injection 15 mg 15 mg, Intravenous, ONCE, 1 dose, On [place] 08/22/22 at 0815 $ Given 08/22/2022 8:09 AM CDT 15 mg hydrALAZINE (Apresoline) injection 15 mg 15 mg, Intravenous, EVERY 4 HOURS PRN, SBP greater than 160 mmHg, If Labetalol Ineffective, Starting on [place] 08/22/22 at 0847, Until [facility] 08/26/22 at 1539 $ Given 08/25/2022 6:17 PM CDT 15 mg $ Given 08/25/2022 4:13 AM CDT 15 mg $ Given 08/24/2022 3:03 AM CDT 15 mg hydrALAZINE (Apresoline) injection 15 mg 15 mg, Intravenous, EVERY 4 HOURS PRN, SBP > 180; If Labetalol Ineffective, Starting on [facility] 08/26/22 at 1538, Until [facility] 09/09/22 at 1935 $ Given 08/29/2022 6:25 [...] Until Discontinued $ Given 09/09/2022 8:50 AM [facility] 100 mg $ Given 09/08/2022 8:06 PM [facility] 100 mg $ Given 09/08/2022 3:19 PM [facility] 100 mg hydrALAZINE (Apresoline) tablet 50 mg [...] Until Discontinued $ Given 09/09/2022 8:50 AM [facility] 100 mg $ Given 09/08/2022 7:53 AM [facility] 100 mg $ Given 09/07/2022 12:17 PM [facility] 100 mg losartan (Cozaar) tablet 50 mg 50 mg, Enteral Tube, DAILY, First dose on 08/24/22 at 1230, Until Discontinued $ Given 08/26/2022 8:38 AM CDT 50 mg NG Tu be $ Given 08/25/2022 8:15 AM CDT 50 mg NG Tube $ Given 08/24/2022 1:13 PM CDT 50 mg NG Tube losartan (Cozaar) tablet 50 mg 50 mg, Oral, Once, 1 dose, On [facility] 08/26/22 at 1230, Completion of therapy; prior 1x dose dropped on floor $ Given 08/26/2022 12:33 PM CDT 50 mg metoprolol (Lopressor) injection 7.5 mg 7.5 mg, Intravenous, EVERY 6 HOURS, 2 doses, First dose (after last modification) on 08/21/22 at 2330, Last dose on [place] 08/22/22 at 0600 $ Given 08/22/2022 5:53 AM CDT 7.5 mg $ Given 08/21/2022 11:30 PM CDT 7.5 mg metroNIDAZOLE (Flagyl) 500 mg in 100 mL IVPB 500 mg, at 200 mL/hr, Intravenous, EVERY 8 HOURS, First dose on [place] 08/22/22 at 1430, Until Discontinued, Controlled Room [...] to administration $ Given 09/09/2022 8:51 AM [facility] 17 g $ Given 09/08/2022 8:07 PM [facility] 17 g $ Given 09/06/2022 9:38 PM [facility] 17 g potassium - sodium phosphates (Phos-Nak) [...] or chew. $ Given 09/09/2022 8:50 AM [facility] 20 mEq predniSONE (Deltasone) tablet 40 mg [...] Until Discontinued $ Given 09/09/2022 8:50 AM [facility] 1 tablet $ Given 09/08/2022 8:07 PM [facility] 1 tablet $ Given 09/06/2022 9:37 PM [facility] 1 tablet sevelamer carbonate (Renvela) tablet 800 [...] Until Discontinued $ Given 09/09/2022 8:50 AM [facility] 1 table t documented in this encounter Active and Recently Administered Medications Times are shown in [facility]. Scheduled Medication Order 09/07/2022 09/08/2022 09/09/2022 0.9% [...] daily. documented in this encounter Care Teams Embossing Press Operator Apprentice Relationship Specialty Start Date End Date Diana Mao MD [address] [place] [address] PCP - General 08/05/17 06/14/23 documented as of this encounter
--- OUTSIDE RECORDS SUMMARY | 2024-10-16 00:30 | XMS_ITS | Encounter Summary ---
Author Organization [facility] Address [address] [facility] [place] [address] Care Team Providers Care Business Ethics Professor Name Role Phone Diana Mao MD Primary Care Provider [phone] Reason for Visit * Reason Onset Date Comments Question 03/01/2022 Encounter Details Date Type Department Care Team (Late st Contact Info) Description 03/01/2022 Telephone [facility] [address] [place] [address], [place] [phone] Diana Mao MD [address] [place] [address] Question Social History Tobacco Use Types Packs/Day [...] from you. She can be reached at [phone]. Please advise. documented in this encounter Plan of Treatment Upcoming Encounters Date Type Department Care Team (Late st Contact Info) Description 12/11/2024 10:30 AM CREATIVE PRODUCER Appointment [facility] Vascular Services [address] [facility], [address] [place] [address] Jarett Reinoso MD [address] [place], [place] [phone] Christine Benitez MD [address] [place] [address] Keyshawn Krueger MD [address] [place], [place] [phone] Armando Ferro, [address] [address] [address] documented as of this encounter Visit Diagnoses Not on filedocumented in this encounter Care Teams Business Ethics Professor Relationship Specialty Start Date End Date Diana Mao MD [address] [place] [address] PCP - General 08/05/17 06/14/23 documented as of this encounter
--- OUTSIDE RECORDS SUMMARY | 2024-10-16 00:30 | XMS_ITS | Encounter Summary ---
Author Organization [facility] Address [address] [facility] [place] [address] Care Team Providers Care Crimping Press Operator Name Role Phone Diana Mao MD Primary Care Provider [phone] Reason for Visit * Reason Onset Date Comments Question 06/24/2020 Covid testing Encounter Details Date Type Department Care Team (Late st Contact Info) Description 06/24/2020 Telephone [facility] Met[facility] [address] [place] [address] Diana Mao MD [address] [address] Question (Covid testing) Social History Tobacco Use [...] needsto do? She can be reached at [phone]. documented in this encounter Plan of Treatment Upcoming Encounters Date Type Department Care Team (Late st Contact Info) Description 12/11/2024 10:30 AM FLOORMAN Appointment [facility] Vascular Services [address] [facility] [address] [place], [place] [phone] Jarett Reinoso MD [address] [place], [place] [phone] Christine Benitez MD [address] [place] [address] Keyshawn Krueger MD [address] [place] [address] Armando Ferro, [address] [address] documented as of this encounter Visit Diagnoses Not on filedocumented in this encounter Care Teams Crimping Press Operator Relationship Specialty Start Date End Date Diana Mao MD [address] [place] [address] PCP - General 08/05/17 06/14/23 documented as of this encounter
--- OUTSIDE RECORDS SUMMARY | 2024-10-16 00:30 | XMS_ITS | Encounter Summary ---
Author Organization [facility] Address [address] [place] [address] Care Team Providers Care Comptometer Operator Name Role Phone Diana Mao MD Primary Care Provider [phone] Reason for Visit * Reason Onset Date Comments MEDICATION REFILL 03/30/2022 Encounter Details Date Type Department Care Team (Late st Contact Info) Description 03/30/2022 Refill [facility] Geriatrics [address] [place] [address], [facility] [place] [phone] Diana Mao MD [address] [place] [phone] MEDICATION REFILL Social History Tobacco Use Types [...] Contact Info) Description 12/11/2024 10:30 AM ASSISTANT CASE MANAGER Appointment [facility] Vascular Services [address] [facility] [address] [place] [address] Jarett Reinoso MD [address] [place], [place] [address] Christine Benitez MD [address] [place] [phone] Keyshawn Krueger MD [address] [place], [place] [phone] [place] [address] [phone] documented as of this encounter Visit Diagnoses Not on filedocumented in this encounter Care Teams Comptometer Operator Relationship Specialty Start Date End Date Diana Mao MD [address] [place] [address] PCP - General 08/05/17 06/14/23 documented as of this encounter
--- OUTSIDE RECORDS SUMMARY | 2024-10-16 00:30 | XMS_ITS | Encounter Summary ---
Author Organization [facility] Address [address] [place] [address] Care Team Providers Care Loaf Counter Name Role Phone Diana Mao MD Primary Care Provider [phone] Encounter Details Date Type Department Care Team (Late Contact Info) Description 12/19/2020 Orders Only [facility] - COVID Vaccine [address] [place] [phone] Joseph Marshall MD [address] [place], [place] [phone] Need for vaccination Social History Tobacco Use [...] (Late Contact Info) Description 12/11/2024 10:30 AM PERSONAL DEVELOPMENT COACH Appointment [facility] Vascular Services [address] [facility], [facility] [address] [place] [address] Jarett Reinoso MD [address] [place] [address] Christine Benitez MD [address] [place] [phone] Keyshawn Krueger MD [address] [place], [place] [address] Armando Ferro, [address] [address] documented as of this encounter Visit Diagnoses Diagnosis Need for vaccination Need for prophylactic vaccination and inoculation against unspecified single disease documented in this encounter Care Teams Loaf Counter Relationship Specialty Start Date End Date Diana Mao MD [address] [place] [address] PCP - General 08/05/17 06/14/23 documented as of this encounter
--- OUTSIDE RECORDS SUMMARY | 2024-10-16 00:30 | XMS_ITS | Encounter Summary ---
Author Organization [facility] Address [address] [facility] [facility] [place] [address] Care Team Providers Care Multifocal Button Inspector Name Role Phone Diana Mao MD Primary Care Provider Reason for Visit * Reason Comments Incontinence Encounter Details Date Type Department Care Team (Late st Contact Info) Description 09/29/2021 10:00 AM MED AIDE Office Visit [facility] Obstetrics Gynecology and Women's Health [address] [place] [address] Santiago aMr Che, MD [address] [facility] [address] [place] [address] Urge incontinence (Primary Dx); Stress [...] Mar Che, MD - 09/29/2021 10:31 AM MED AIDE Symptom Diary Please keep a symptom diary. [...] a month. Please think about seeing a ticket puller about your many moles Call if any problems or concerns at . You can also ask the digitizer operator to send me a message, and I or the nurses in Urogynecology Triage will respond when we can. You will note that your clinical notes from your visits will be available for visits after 2019 (Sorry, earlier ones are not released by [facility] or [facility]). If you see any errors, please tell [...] to reflect how you take them exactly. AIDE documented in this encounter Progress Notes * Santiago Mar Che, MD - 10/02/2021 3:33 PM CST Treated with macrobid. Normally a colonizer, but cath specimen AIDE * Santiago Mar Che, MD - 09/29/2021 [...] tablet Take 90 mg by mouth ??? [place]-3 Fatty Acids (FISH OIL) 1200 MG ??? [...] moles, and was asked to see her ticket puller as she said someone told her she [...] ? Referring and/or communicating with other health healthcare sales representative Time: 5 min ? Documenting clinical information in the electronic health record Time: 10 min ? Care coordination as needed Time: 0 min Total time spent for encounter: 65 minutes 30 min (03405) 45 minutes (03056) 60 minutes (23219) AIDE documented in this encounter Procedure Notes * Santiago Mar Che, MD - 09/29/2021 10:31 AM CSTAssociated Order(s): PROC BLADDER CATHETERIZATION Procedure(s): TN INSERT NON-INDWELLING BLADDER Pre-Procedure Diagnose(s): Urge incontinence [...] taken. The patient tolerated the procedure well. AIDE documented in this encounter Miscellaneous Notes * Addendum Note - Santiago Mar Che, MD - 10/02/2021 3:32 PM CSTAddended by: SANTIAGO MAR CHE on: 10/02/2021 03:32 PM Modules accepted: Orders AIDE documented in this encounter Plan of Treatment Upcoming Encounters Date Type Department Care Team (Late st Contact Info) Description 12/11/2024 10:30 AM MED AIDE Appointment [facility] Vascular Services [address] [facility], [address] [address] Jarett Reinoso MD [address] [place] [address] Christine Benitez MD [address] [facility] [place] [phone] Keyshawn Krueger MD [address] [place] [phone] [place] [address] [address] documented as of this encounter Procedures Procedure Name Priority Date/Time Associated Diagnosis Comments CULTURE URINE COMPREHENSIVE Routine 09/29/2021 10:35 AM MED AIDE Urge incontinence TN INSERT NON-INDWELLING BLADDER Routine 09/29/2021 10:31 AM MED AIDE Urge incontinence URINALYSIS AUTO - POINT OF CARE (AMB) [facility] Routine 09/29/2021 Urge incontinence documented in this encounter Results * (ABNORMAL) CULTURE URINE COMPREHENSIVE (09/29/2021 10:35 AM MED AIDE) Culture (A) [facility] Comment: ??CULTURE, URINE, SPECIAL ?Micro Number: ?[id number] ??Test Status: ? Final ??Specimen Source: ?? Other (specify) ??Specimen Quality: ??Adequate ??Result: ?10,000-49,000 CFU/mL of Corynebacterium species ? May represent colonizers from external and ? internal genitalia. No further testing (including ? susceptibility) will be performed. REPORT COMMENT: FASTING:UNKNOWN Test Performed at: [facility] [address] [place] [place], [place] ??[address] CECILIA FARIAS DO,MPH Microbiology URINE SPECIMEN COLLECTION, CATHETERIZED / Unknown 09/29/2021 10:35 AM MED AIDE 09/29/2021 1:03 PM MED AIDE Santiago Mar MD LAB - MICROBIOLOGY O RDERABLES [facility] [address] [place] [address] * TN INSERT NON-INDWELLING BLADDER (09/29/2021 10:31 AM MED AIDE) Narrative Santiago Mar Che, MD - 09/29/2021 10:31 AM MED AIDE Santiago Mar Che, MD ? 09/29/2021 [...] POCT neg Ketones UA POCT neg Specific Armstrong UA 1.020 Blood Urine POCT neg pH UA 6.0 Protein UA ++ Urobilinogen UA 0.2 Nitrite UA neg WBC UA neg Urine URINE / Unknown 09/29/2021 Santiago Mar MD LAB - POINT OF CARE ORDERABLES documented in this encounter Visit Diagnoses Diagnosis Urge incontinence- Primary Stress incontinence Female stress incontinence Incontinence of feces, unspecified fecal incontinence type documented in this encounter Care Teams Multifocal Button Inspector Relationship Specialty Start Date End Date Diana Mao MD [address] [place] [address] PCP - General 08/05/17 06/14/23 documented as of this encounter
--- OUTSIDE RECORDS SUMMARY | 2024-10-16 00:30 | XMS_ITS | Encounter Summary ---
Author Organization [facility] Address [address] [facility] [place] [address] Care Team Providers Care Pharmacist Helper Name Role Phone Diana Mao MD Primary Care Provider [phone] Yanira Meyers PAINT STOCK CLERK-VENEER TAPING MACHINE OPERATOR Primary Care Provid er Reason for Visit * Reason Onset Date Comments Procedure Prior Auth Request 03/19/2022 CT ABDOMEN PELVIS W CONTRAST-DENIAL Encounter Details Date Type Department Care Team (Late st Contact Info) Description 03/19/2022 Telephone [facility] [address] [place] [address] Madai Ortiz Procedure Prior Auth [...] to Debbie.. She received a call from [facility] informing her that this test was DENIED by the Insurance[employer].. I told Ms. Rea that I will follow up with Debbie to find out why the test was Denied and ask Debbie to reach out to her some time today.. Pt's CB # [phone] documented in this encounter Plan of Treatment Upcoming Encounters Date Type Department Care Team (Late st Contact Info) Description 12/11/2024 10:30 AM OCEANOGRAPHER ASSISTANT Appointment [facility] Vascular Services [address] [facility], [address] [place] [address] Jarett Reinoso MD [address] [place] [address] Christine Benitez MD [address] [place] [address] Keyshawn Krueger MD [address] [place], [place] [phone] Armando Ferro, [address] [address] documented as of this encounter Visit Diagnoses Not on filedocumented in this encounter Care Teams Pharmacist Helper Relationship Specialty Start Date End Date Diana Mao MD [address] [place] [address] PCP - General 08/05/17 06/14/23 Yanira Meyers, PAINT STOCK CLERK-VENEER TAPING MACHINE OPERATOR [address] [place] [address] PCP - General Nurse Practitioner Family 06/15/23 documented as of this encounter
--- OUTSIDE RECORDS SUMMARY | 2024-10-16 00:30 | XMS_ITS | Encounter Summary ---
Author Organization [facility] Address [address] [place] [address] Care Team Providers Care Melt Room Operator Name Role Phone Diana Mao MD Primary Care Provider [phone] Reason for Visit * Reason Comments Diarrhea ongoing Encounter Details Date Type Department Care Team (Late st Contact Info) Description 03/08/2022 4:30 PM CDT Office Visit [facility] [address] [place] [address], [place] [phone] Diana Mao MD [address] [place] [address] Diarrhea, unspecified type (Primary Dx) Social History [...] VISIT PLEASE For appointments, call us at [phone] and select option 1 or send a [facility] message. PLEASE ARRIVE TO YOUR APPOINTMENTS at least 20-30 minutes before your schedule visit time. NEED AN INSURANCE REFERRAL from us - contact [phone] To request refills, please contact your pharmacy who will reach out to us. If you have changes to your refill prescription, you will need to contact us directly at [phone] and select option 3 orsend your doctor a [facility] message. We request that all prescription refills be requested during regular office phone hours. If your prescription requires a prior authorization, it may take several days for us to get approval from your[employer] company before we can refill your prescription. Call your pharmacy first to confirm if there are any refills on file. Please do not wait until you are completely out to prevent any interruption in your medication. Normal business hours are from 8:00 am to 4:30 pm Tuesday through Tuesday. Our fax number is [phone]. If you have been seen anyplace outside of [facility], please have your records and test results [...] day are given to the Geriatric physician coffee plantation worker. Please call [phone] and identify yourself as a patient in our practice needing to speak to Geriatric Medicine. The welding operator will contact the physician coffee plantation worker. You can generally expect a return call within 30 minutes. On weekends, physicians are seeing hospitalized patients and there may be a longer wait. Test and laboratory results: Our practice typically reports lab and test results through letters orMyChart, the [facility] online patient portal. Please allow 5 days from when your tests are completed to receive the results. IF GOING TO [facility] or [facility]--PLEASE TAKE LAB ORDER WITH YOU !! If you did not complete your labs at a [facility] facility or at a commercial lab ([facility], [facility]) then we may not have received the results. Please contact the lab and request that they are faxed to us([phone]). For information related to COVID-19, please visit the cdc website at www.cdc.gov. [facility]'s missed appointment policy is: - Patients with 3 consecutively missed appointments OR 3 missed appointments in a 12 month period may be asked to seek consultation outside of [facility]. - A missed appointment is defined as: Arriving to a scheduled appointment too late to be seen (Patients who arrive to clinic later than their scheduled appointment time may not be seen) PLEASE ARRIVE 20-30 minutes before your schedule visit time. Not showing up for an appointment An appointment cancelled less than 24 hours in advance OUR ADDRESS: [facility], [address] [place], [place] [id number] documented in this encounter Progress Notes * [...] daily, Disp: 2.5 mL, Rfl: 0 ??? Lowman-3 Fatty Acids (FISH OIL) 1200 MG, , [...] FECES, Ref to GI Gastr oenterology - [facility], CT ABDOMEN PELVIS W CONTRAST documented in this encounter Plan of Treatment Upcoming Encounters Date Type Department Care Team (Late st Contact Info) Description 12/11/2024 10:30 AM MAP COMPILER Appointment [facility] Vascular Services [address] [facility], [address] [place] [address] Jarett Reinoso MD [address] [place], [place] [address] Christine Benitez MD [address] [place] [phone] Keyshawn Krueger MD [address] [place], [place] [address] [place] [address] [address] Scheduled Orders Name Type Priority [...] TO PATIENT. PATIENT ADVISED Test Performed at: [email or web address] [address] [place], [place] ??[address] CECILIA FARIAS DO,MPH 03/09/2022 1:1 2 PM CDT 03/09/2022 1:17 PM CDT Diana Mao MD LAB - CHEMISTRY PATRICIA CASIANO [facility] Organization Address City/State/ZIP Co de Phone Number [facility] [address] [place] [address] * (ABNORMAL) CBC WITH DIFFERENTIAL (03/09/2022 1:12 [...] TO PATIENT. PATIENT ADVISED Test Performed at: [facility] [address] [place], [place] ??[address] CECILIA FARIAS DO,MPH Blasts [facility] nRBC [facility] Comments [facility] Comment: Test Performed at: [facility] [address] [place], [place] ??[address] CECILIA FARIAS DO,MPH 03/09/2022 1:12 PM CDT 03/09/2022 1:17 PM CDT Diana Mao MD LAB - HEMATOLOGY ORD ERAPAM Performing Organization Address City/[facility]/ZIP Co de Phone Number [facility] [address] [place] [address] * (ABNORMAL) COMPREHENSIVE METABOLIC PANEL (03/09/2022 1:12 PM CDT) Glucose 99 65 - 139 mg/dL [facility] Comment: ? Non-fasting reference interval BUN 65(H) 7 - 25 mg/dL [facility] Creatinine 2.74(H) 0.60 - 0.88 mg/dL [facility] Comment: For patients >49 years of age, the reference limit for Creatinine is approximately 13% higher for people identified as -[place] Citizen. eGFR by MDRD 16(L) > OR = [...] 29 U/L [facility] Comment: Test Performed at: [email or web address] [address] ??[phone] CECILIA FARIAS DO,MPH 03/09/2022 1:12 PM CDT 03/09/2022 1:17 PM CDT Diana Mao MD LAB - CHEMISTRY PATRICIA CASIANO [facility] [address] [place] [address] documented in this encounter Visit Diagnoses Diagnosis Diarrhea, unspecified type- Primary documented in this encounter Care Teams Melt Room Operator Relationship Specialty Start Date End Date Diana Mao MD [address] [place] [address] PCP - General 08/05/17 06/14/23 documented as of this encounter
--- OUTSIDE RECORDS SUMMARY | 2024-10-16 00:30 | XMS_ITS | Encounter Summary ---
Author Organization [facility] Address [address] [facility] [place] [address] Care Team Providers Care Finish Filer Name Role Phone Diana Mao MD Primary Care Provider [phone] Reason for Visit * Reason Onset Date Comments Order 04/03/2020 Shoulder - wants massage therapy Encounter Details Date Type Department Care Team (Late st Contact Info) Description 04/03/2020 Telephone [facility] [address] [place] [address] Diana Mao MD [address] [address] Order (Shoulder - wants massage therapy) Social [...] need help finding someone. Can ask Neri (QUALITY CONTROL INDUSTRIAL ENGINEER) to assist if needed. JUNG: 01/04/20 RTC: None scheduled [phone] documented in this encounter Plan of Treatment Upcoming Encounters Date Type Department Care Team (Late st Contact Info) Description 12/11/2024 10:30 AM CAREER CENTER DIRECTOR Appointment [facility] Vascular Services [address] [facility] [address] [place] [address] Jarett Reinoso MD [address] [place] [address] Christine Benitez MD [address] [place] [address] Keyshawn Krueger MD [address] [place], [place] [address] Armando Ferro, [address] [address] documented as of this encounter Visit Diagnoses Not on filedocumented in this encounter Care Teams Finish Filer Relationship Specialty Start Date End Date Diana Mao MD [address] [place] [address] PCP - General 08/05/17 06/14/23 documented as of this encounter
--- OUTSIDE RECORDS SUMMARY | 2024-10-16 00:30 | XMS_ITS | Encounter Summary ---
Author Organization [facility] Address [address] [place] [address] Care Team Providers Care Ceramic Engineer Name Role Phone Diana Mao MD Primary Care Provider [phone] Reason for Visit * Reason Onset Date Comments MEDICATION REFILL 09/05/2019 Encounter Details Date Type Department Care Team (Late st Contact Info) Description 09/05/2019 Refill [facility] [address] [place] [address] Diana Mao MD [address] [address] MEDICATION REFILL Social History Tobacco Use Types [...] Lupe Wilson LPN - 09/05/2019 10:43 AM GRAVITY METER OBSERVER Refill Request Kirsty Rea JUNG: 04.06.19 NOV scheduled: 10.08.19 LRF: 02.19.19 Qty Disp: 90 # of refills: 3 Allergies: Allergies Allergen Reactions ??? Ramipril Other Other reaction(s): Other (See Comments) Kidney Damage Kidney Damage Pended Medication Order: Requested Prescriptions Pending Prescriptions Disp Refills ??? potassium chloride (KLOR-CON) 20 MEQ packet 100 Each 4 Sig: Take 1 packet by mouth once daily ITY METER OBSERVER documented in this encounter Plan of Treatment Upcoming Encounters Date Type Department Care Team (Late st Contact Info) Description 12/11/2024 10:30 AM GRAVITY METER OBSERVER Appointment [facility] Vascular Services [address] [facility] [address] [place] [address] Jarett Reinoso MD [address] [place], [place] [address] Chrsitine Benitez MD [address] [place] [phone] Keyshawn Krueger MD [address] [place], [place] [address] Armando Ferro, [address] [address] documented as of this encounter Visit Diagnoses Not on filedocumented in this encounter Care Teams Ceramic Engineer Relationship Specialty Start Date End Date Diana Mao MD [address] [place] [address] PCP - General 08/05/17 06/14/23 documented as of this encounter
--- OUTSIDE RECORDS SUMMARY | 2024-10-16 00:30 | XMS_ITS | Encounter Summary ---
Author Organization [facility] Address [address] [facility] [place] [address] Care Team Providers Care Staff Counselor Name Role Phone Diana Mao MD Primary Care Provider [phone] Reason for Visit * Auth/Cert Specialty Diagnoses / Procedures Referred By Contac t Referred To Contact Diagnoses spontan head bleed Referral ID Status Reason Start Date Expiration Date Visits Re quested Visits Authorized [id number] 1 1 Encounter Details Date Type Department Care Team (Late st Contact Info) Description 08/25/2022 11:43 AM CDT Anesthesia Event [facility] IV[facility] [address] [place] [phone] Jayna Masters MD [address] [facility] DEPT [place] [address] Holli Bennett Anes Asst Anesthesia Record Procedure [...] Rain RN 08/25/22 1228 by Sho Rogel, investment banking associate Tunneled Catheter 08/25/22; 1222; Dr. Ward; Internal [...] HTN, CKD3, Morphea and osteopenia transferred [facility] to [facility] Neuro ICU for pontine intraparenchymal hemorrhage. Patient reports developing generalized weakness and nausa/vomiting this afternoon. She had several episodes of vomiting but denies ALDANA,CP, speech changes, vision or sensory changes. Reports photosensitivity. 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 08/25/2022 - ??81 year old??female??w/ hx of HTN,??CKD stage IV-V,??morphea, who presented to [facility] for worseningkidney function, cre peaked to 4.65 on 08/19. requiring hemodialysis.? Pt upgraded to ICU for hypertensive emergency requiring Cardene gtt in the setting of acute renal failure. - Acute renal failure further complicated by worsening volume overload with pulmonary edema, acute hypoxic respiratory failure, and metabolic acidosis - nephrology with plans to initiate POWER GENERATION ENGINEER. - Continue weaning supplemental O2 as tolerated. [...] procedural Anesthetic Plan was discussed with the BEAR KEEPER. BMI, Height, Weight Tobacco History Estimated body [...] Priority: Not Prioritized ??? Intracranial hemorrhage, nontraumatic ([facility]) 08/15/2022 Priority: Not Prioritized ??? Cervicalgia [...] Not Prioritized ??? Acute renal failure (ARF) ([facility]) 07/14/2015 Priority: Not Prioritized ??? Hypertensive [...] kidney disease) stage 3, GFR 30-59 ml/min ([facility]) proteinuria ??? HTN (hypertension), benign ??? 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 Morphea ??? Osteopenia Surgical History: Past Surgical History: Procedure Laterality Date ??? Appendectomy ??? Breast Reduction ??? Cholecystectomy, Laparoscopic ??? HX FRACTURE TX ??? OOPHORECTOMY 1972 ??? Parathyroidectomy 1999 SILK SCREEN PRINTER MACHINE Status: No LMP recorded. Patient is postmenopausal. Postmenopausal OB History Para Term AB Living 2 2 0 0 0 0 SAB IAB Ectopic Multiple Live Births 0 0 0 0 0 # Outcome Date GA Lbr Samuel/2nd Weight Sex Delivery Anes PTL Lv 2 Para 1 Para Covid Vaccine: Lab Results: Recent Labs Base Name 08/25/22 0128 [id number]* SPECIMENTYPE Cap Fingerstick Recent Labs Component [...] 1400; Orientation: Right; Site: Internal Jugular; Lumens: Wfofcg47/24/22 1400 by Massiel Rain RN 08/25/22 1228 [...] st Contact Info) Description 12/11/2024 10:30 AM BLOCKER AND POLISHER GOLD WHEEL Appointment [facility] Vascular Services [address] [facility], [address] [address] Jarett Reinoso MD [address] [place], [place] [address] Christine Benitez MD [address] [facility] [place] [address] Keyshawn Krueger MD [address] [place], [place] [address] Armando Ferro, [address] [address] documented as of this encounter [...] mg documented in this encounter Care Teams Staff Counselor Relationship Specialty Start Date End Date Diana Mao MD [address] [place] [address] PCP - General 08/05/17 06/14/23 documented as of this encounter
--- OUTSIDE RECORDS SUMMARY | 2024-10-16 00:30 | XMS_ITS | Encounter Summary ---
Author Organization [facility] Address [address] [place] [address] Care Team Providers Care Mobile Marketing Manager Name Role Phone Diana Mao MD Primary Care Provider [phone] Reason for Visit * Reason Comments Hypertension followup Encounter Details Date Type Department Care Team (Late st Contact Info) Description 04/06/2019 1:20 PM CDT Office Visit [facility] [address] [place] [address] Rae eNil MD [address] [address] Chronic kidney disease, stage 2 (mild) (Primary [...] injection) Zoster Vaccine Recombinant, Adjuvanted (ZOS-ter VAX-een ydf-PNO-ne-ned, JG-xdq-ptc-gerard) Prevents herpes zoster (shingles). Brand Name(s): Shingrix [...] pharmacist before using any other medicine, including mfyu-dmw-zlpfwka medicines, vitamins, and herbal products. ?? Some [...] may report side effects to FDA at 3-830-JWZ-7118 ?? Copyright [employer] 2018 Information is for End User's use only and may not be sold, redistributed or otherwise used for commercial purposes. The above information is an guest service aide only. It is not intended as medical [...] year. She was recently seen by the voice and data technician and a BMP was done in January [...] tablet Take 1 tablet by mouth once [id number] tablet 3 No current facility-administered medications on [...] Neil. Trever Sweet MD, Geriatric Fellow Pager: [phone] Associated attestation - Rae Neil MD - [...] on ARB but this is managed by voice and data technician. Last labs 01/2019 with creat 1.5. 2. [...] no abd pain and no constipation, ENT: [place], no ST or nasal sx. Objective: Vitals: [...] st Contact Info) Description 12/11/2024 10:30 AM TOWEL STRETCHER Appointment [facility] Vascular Services [address] [facility], [address] [place] [address] Jarett Reinoso MD [address] [place], [place] [address] Christine Benitez MD [address] [place] [address] Keyshawn Krueger MD [address] [place] [address] Armando Ferro, [address] [phone] Scheduled Orders Name Type Priority Associated Diagnoses Orde r Schedule [id number] COLOGUARD TEST *Associate with Z12.11 OR Z12.12 [...] varicella documented in this encounter Care Teams Mobile Marketing Manager Relationship Specialty Start Date End Date Diana Mao MD [address] [place] [address] PCP - General 08/05/17 06/14/23 documented as of this encounter
--- OUTSIDE RECORDS SUMMARY | 2024-10-16 00:30 | XMS_ITS | Encounter Summary ---
Author Organization [facility] Address [address] [facility] [address] Care Team Providers Care Improvement Intern Name Role Phone Diana Mao MD Primary Care Provider [phone] Encounter Details Date Type Department Care Team (Late Contact Info) Description 03/23/2022 Orders Only [facility] [address] [place] [address], [place] [address] Diana Mao MD [address] [place], [place] [address] [place] [address] Social History Tobacco Use Types Packs/Day Years [...] (Late Contact Info) Description 12/11/2024 10:30 AM ASSOCIATE PROFESSOR PHYSICIAN Appointment [facility] Vascular Services [address] [facility], [address] [address] Jarett Reinoso MD [address] [place] [address] Christine Benitez MD [address] [place] [address] Keyshawn Krueger MD [address] [place], [place] [address] Armando Ferro, [address] [address] documented as of this encounter Visit Diagnoses Not on filedocumented in this encounter Care Teams Improvement Intern Relationship Specialty Start Date End Date Diana Mao MD [address] [place] [address] PCP - General 08/05/17 06/14/23 documented as of this encounter
--- OUTSIDE RECORDS SUMMARY | 2024-10-16 00:30 | XMS_ITS | Encounter Summary ---
Author Organization [facility] Address [address] [facility] [place] [address] Care Team Providers Care Custom Seamstress Name Role Phone Diana Mao MD Primary Care Provider [phone] Reason for Visit * Reason Onset Date Comments Question 08/12/2021 Encounter Details Date Type Department Care Team (Late st Contact Info) Description 08/12/2021 Telephone [facility] [address] [place] [address], [place] [address] Diana Mao MD [address] [place] [address] Question Social History Tobacco Use Types Packs/Day [...] st Contact Info) Description 12/11/2024 10:30 AM COMIC BOOK WRITER Appointment [facility] Vascular Services [address] [facility], [address] [place] [address] Jarett Reinoso MD [address] [place], [place] [address] Christine Benitez MD [address] [place] [address] Keyshawn Krueger MD [address] [place] [address] Armando Ferro, [address] [phone] documented as of this encounter Visit Diagnoses Not on filedocumented in this encounter Care Teams Custom Seamstress Relationship Specialty Start Date End Date Diana Mao MD [address] [place] [address] PCP - General 08/05/17 06/14/23 documented as of this encounter
--- OUTSIDE RECORDS SUMMARY | 2024-10-16 00:30 | XMS_ITS | Encounter Summary ---
Author Organization [facility] Address [address] [facility] [place] [address] Care Team Providers Care Elevator Installer Name Role Phone Diana Mao MD Primary Care Provider [phone] Reason for Visit * Reason Comments Incontinence Encounter Details Date Type Department Care Team (Late st Contact Info) Description 11/13/2021 4:00 PM CARD GRINDER HELPER Office Visit [facility] Obstetrics Gynecology and Women's Health [address] [place] [address] Santiago Mar Che, MD [address] [place] [address] Urge incontinence (Primary Dx) Social [...] Mar Che, MD - 11/13/2021 3:34 PM CARD GRINDER HELPER I am starting you on ditropan (oxybutynin) 5 mg to be taken just once a day. I am hoping it helps you with urinary control as well as fecal control. If you get too much constipation, tell me. See me in 6 weeks. Call if any problems or concerns at . You can also ask the offset printing operator to send me a message, and I or the nurses in Urogynecology Triage will respond when we can. You will note that your clinical notes from your visits will be available for visits after 2019 (Sorry, earlier ones are not released by [facility] or [facility]). If you see any errors, please tell [...] to reflect how you take them exactly. GRINDER HELPER documented in this encounter Progress Notes * [...] ? Referring and/or communicating with other health career resource technician Time: 5 min ? Documenting clinical information in the electronic health record Time: 5 min ? Care coordination as needed Time: 0 min Total time spent for encounter: 35 minutes 20 min (36402) 30 minutes (51097) 40 minutes (34956) GRINDER HELPER documented in this encounter Plan of Treatment Upcoming Encounters Date Type Department Care Team (Late st Contact Info) Description 12/11/2024 10:30 AM CARD GRINDER HELPER Appointment [facility] Vascular Services [address] [place] [address], [address] [address] Jarett Reinoso MD [address] [place] [address] Christine Benitez MD [address] [place] [address] Keyshawn Krueger MD [address] [place] [address] Armando Ferro, [address] [address] documented as of this encounter Visit Diagnoses Diagnosis Urge incontinence- Primary documented in this encounter Care Teams Elevator Installer Relationship Specialty Start Date End Date Diana Mao MD [address] [place] [address] PCP - General 08/05/17 06/14/23 documented as of this encounter
--- OUTSIDE RECORDS SUMMARY | 2024-10-16 00:30 | XMS_ITS | Encounter Summary ---
Author Organization [facility] Address [address] [facility] [address] Care Team Providers Care Scow Captain Name Role Phone Diana Mao MD Primary Care Provider [phone] Reason for Visit * Reason Onset Date Comments Question 09/09/2020 Leg pain Encounter Details Date Type Department Care Team (Late st Contact Info) Description 09/09/2020 Telephone [facility], [facility] and Metabolism [address] [facility], [place] [address] Tariq Antoine, SENIOR HR GENERALIST-ULTRASOUND SONOGRAPHER [address] [place] [address] [place] [address] Question (Leg pain) Social History [...] Marie Bennett LPN - 09/09/2020 1:37 PM LEAD MINER BLASTING She needs to tell me more than [...] about this matter. Can you please advise? [phone] JUNG: 07.30.2020 RAFAL Potter NOV: None MINER BLASTING documented in this encounter Plan of Treatment Upcoming Encounters Date Type Department Care Team (Late st Contact Info) Description 12/11/2024 10:30 AM LEAD MINER BLASTING Appointment [facility] Vascular Services [address] [facility] [address] [place], [place] [address] Jarett Reinoso MD [address] [place], [place] [address] Christine Benitez MD [address] [place] [address] Keyshawn Krueger MD [address] [place], [place] [address] [place] [address] [phone] documented as of this encounter Visit Diagnoses Not on filedocumented in this encounter Care Teams Scow Captain Relationship Specialty Start Date End Date Diana Mao MD [address] [place] [address] PCP - General 08/05/17 06/14/23 documented as of this encounter
--- OUTSIDE RECORDS SUMMARY | 2024-10-16 00:30 | XMS_ITS | Encounter Summary ---
Author Organization [facility] Address [address] [facility] [place] [address] Care Team Providers Care Intelligence Specialist Name Role Phone Diana Mao MD Primary Care Provider [phone] Reason for Visit * Reason Comments Follow-up Encounter Details Date Type Department Care Team (Late st Contact Info) Description 02/02/2021 2:00 PM CDT Office Visit [address], [place] [phone] Diana Mao MD [address] [place] [address] Shoulder arthritis (Primary Dx); Age-related osteoporosis without [...] Office Visits For appointments, call us at [phone] and select option 1 or you can send a [employer] message. To request refills, please contact your pharmacy who will reach out to us. If you have changes to your refill prescription, you will need to contact us directly at [phone] and select option 2 orsend your doctor a [employer] message. We request that all prescription refills be requested during regular office phone hours. If your prescription requires a prior authorization, it may take several days for us to get approval from [employer] company before we can refill your prescription. Call your pharmacy first to confirm if there are any refills on file. Please do not wait until you are completely out to prevent any interruption in your medication. Normal business hours are from 8:00 am to 4:30 pm Tuesday through Tuesday. Our fax number is [phone]. If you have been seen anyplace outside of [facility], please have your records and [...] day are given to the Geriatric physician family preservation worker. Please call [phone] and identify yourself as a patient in our practice needing to speak to Geriatric Medicine. The database operator will contact the physician family preservation worker. You can generally expect a return call within 30 minutes. On weekends, physicians are seeing hospitalized patients and there may be a longer wait. Test and laboratory results: Our practice typically reports lab and test results through letters orMyChart, the [facility] online patient portal. Please allow 5 days from when your tests are completed to receive the results. IF GOING TO [employer]CO[employer]eks Communications or [employer]--PLEASE TAKE LAB ORDER WITH YOU !! If you did not complete your labs at a [facility] facility or at a commercial lab ([employer], [employer]) then we may not have received the results. Please contact the lab and request that they are faxed to us([phone]). Visit our website at [email or web address] for additional information about [facility] and an interactive health encyclopedia. For information related to COVID-19, please visit the cdc website at www.cdc.gov. [facility]'s missed appointment policy is: - Patients with 3 consecutively missed appointments OR 3 missed appointments in a 12 month period may be asked to seek consultation outside of [facility]. - A missed appointment is defined as: ?? Arriving to a scheduled appointment too late to be seen (Patients who arrive to clinic later than their scheduled appointment time may not be seen) ?? Not showing up for an appointment ?? An appointment cancelled less than 24 hours in advance NEW OFFICE: [facility], [address] [place] [address] documented in this encounter Progress Notes * [...] 08/05/2017 Covid vaccines x 2 done in [place] MEDS: Current Outpatient Medications Medication Sig Dispense [...] tablet Take 1 tablet by mouth once upptt121 tablet 3 No current facility-administered medications for [...] What state did she live in? (1 point/[place]) 1 1 1 1 RCS Total 10 [...] st Contact Info) Description 12/11/2024 10:30 AM WINDOWS ARCHITECT Appointment [facility] Vascular Services [address] [facility] [address] [place] [address] Jarett Reinoso MD [address] [place], [place] [phone] Christine Benitez MD [address] [place] [phone] Keyshawn Krueger MD [address] [place] [address] Armando Ferro, [address] [address] documented as of this encounter Visit Diagnoses Diagnosis Shoulder arthritis- Primary Unspecified arthropathy, shoulder region Age-related osteoporosis without current pathological fracture Senile osteoporosis Encounter for screening mammogram for malignant neoplasm of breast Other screening mammogram documented in this encounter Care Teams Intelligence Specialist Relationship Specialty Start Date End Date Diana Mao MD [address] [place] [address] PCP - General 08/05/17 06/14/23 documented as of this encounter
--- OUTSIDE RECORDS SUMMARY | 2024-10-16 00:30 | XMS_ITS | Encounter Summary ---
Author Organization [facility] Address [address] [place] [address] Care Team Providers Care Neonatal Surgeon Name Role Phone Diana Mao MD Primary Care Provider [phone] Reason for Visit * Reason Comments Annual Follow-Up Encounter Details Date Type Department Care Team (Late st Contact Info) Description 10/08/2019 1:40 PM HISTOLOGY ASSISTANT Office Visit [facility] [address] [place] [address] Diana Mao MD [address] [address] Other proteinuria (Primary Dx); Senile osteoporosis; Hypertensive [...] Comments Blood Pressure 160/70 10/08/2019 1:46 PM HISTOLOGY ASSISTANT Pulse 66 10/08/2019 1:46 PM HISTOLOGY ASSISTANT Temperature 36.2 ??C (97.2 ??F) 10/08/2019 1:46 PM CS T Respiratory Rate 16 10/08/2019 1:46 PM HISTOLOGY ASSISTANT Oxygen Saturation - - Inhaled Oxygen Concentration - - Weight 79 kg (174 lb 3.2 oz) 10/08/2019 1:46 PM HISTOLOGY ASSISTANT Height 172 cm (5' 7.72 ) 10/08/2019 1:46 PM HISTOLOGY ASSISTANT Body Mass Index 26.71 10/08/2019 1:46 PM HISTOLOGY ASSISTANT documented in this encounter Progress Notes * [...] Does not remember any renal imaging. No MT, no CVA normal ECHO 2014. Does not [...] No stairs. Plays bridge Works at the [employer] ETOH: rarely Tobacco: stopped decades ago (IV) [...] reviewed and discussed with pt: from her learning and development administrator in [facility] (V) Physical Examination: BP 160/70 Pulse 66 [...] disease Chronic kidney disease, stage 3 (moderate) OLOGY ASSISTANT documented in this encounter Plan of Treatment Upcoming Encounters Date Type Department Care Team (Late st Contact Info) Description 12/11/2024 10:30 AM HISTOLOGY ASSISTANT Appointment [facility] V[facility] Services [address] [facility] [address] [place] [address] Jarett Reinoso MD [address] [place], [place] [phone] Christine Benitez MD [address] [place] [address] Keyshawn Krueger MD [address] [place] [address] Armando Ferro, [address] [phone] Scheduled Orders Name Type Priority Associated Diagnoses Orde r Schedule PROTEIN ELECTROPHORESIS URINE RANDOM PANEL Lab Routine Hypertensive chronic kidney disease with stage 1 through stage 4 chronic kidney disease, or unspecified chronic kidney disease Ordered: 10/08/2019 documented as of this encounter Procedures Procedure Name Priority Date/Time Associated Diagnosis Comments PHOSPHORUS BLOOD Routine 01/04/2020 3:15 PM HISTOLOGY ASSISTANT Hypertensive chronic kidney disease with stage 1 through stage 4 chronic kidney disease, or unspecified chronic kidney disease MAGNESIUM BLOOD Routine 01/04/2020 3:15 PM HISTOLOGY ASSISTANT Hypertensive chronic kidney disease with stage 1 through stage 4 chronic kidney disease, or unspecified chronic kidney disease documented in this encounter Results * MAGNESIUM BLOOD (01/04/2020 3:15 PM HISTOLOGY ASSISTANT) Magnesium 1.8 1.6 - 2.6 mg/dL 01/04/2020 4:50 PM HISTOLOGY ASSISTANT [facility] Blood BLOOD SPECIMEN / Unknown Lab Venipuncture / Unknown 01/04/2020 3:15 PM HISTOLOGY ASSISTANT 01/04/2020 3:56 PM HISTOLOGY ASSISTANT Diana Mao MD LAB - CHEMISTRY [facility] CASIAN[facility] [address] [phone] * PHOSPHORUS BLOOD (01/04/2020 3:15 PM HISTOLOGY ASSISTANT) Phosphorus 4.1 2.3 - 4.7 mg/dL 01/04/2020 4:50 PM HISTOLOGY ASSISTANT [facility] Blood BLOOD SPECIMEN / Unknown Lab Venipuncture / Unknown 01/04/2020 3:15 PM HISTOLOGY ASSISTANT 01/04/2020 3:56 PM HISTOLOGY ASSISTANT Diana Mao MD LAB - CHEMISTRY [facility] CASIANO [address] [phone] documented in this encounter Visit Diagnoses Diagnosis Other proteinuria- Primary Senile osteoporosis Hypertensive chronic kidney disease with stage 1 through stage 4 chronic kidney disease, or unspecified chronic kidney disease Chronic kidney disease, stage 3 (moderate) (HCC) 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
--- OUTSIDE RECORDS SUMMARY | 2024-10-16 00:30 | XMS_ITS | Encounter Summary ---
Author Organization [facility] Address [address] [facility] [place] [address] Care Team Providers Care Terry Cloth Cutter Hand Name Role Phone Diana Mao MD Primary Care Provider [phone] Reason for Visit * Reason Comments Dry Skin extremely dry Question why are so many mole s popping up? Rash on back, hard to sle ep Itching both eyes Swelling Foot right foot Shoulder Pain right shoulder Swelling Leg right leg Encounter Details Date Type Department Care Team (Late st Contact Info) Description 12/28/2021 1:30 PM SAMPLE SHOE INSPECTOR AND REWORKER Office Visit [facility] [address] [place] [address], [facility] [place] [phone] Diana Mao MD [address] [place], [place] [address] [place] [address] Rash and other nonspecific skin eruption (Primary [...] Comments Blood Pressure 116/72 12/28/2021 1:32 PM SAMPLE SHOE INSPECTOR AND REWORKER Pulse 86 12/28/2021 1:32 PM SAMPLE SHOE INSPECTOR AND REWORKER Temperature 36.2 ??C (97.1 ??F) 12/28/2021 1:30 PM CS T Respiratory Rate - - Oxygen Saturation 97% 12/28/2021 1:32 PM SAMPLE SHOE INSPECTOR AND REWORKER Inhaled Oxygen Concentration - - Weight 78.2 kg (172 lb 6.4 oz) 12/28/2021 1:30 P M SAMPLE SHOE INSPECTOR AND REWORKER Height 172.7 cm (5' 8 ) 12/28/2021 1:30 PM SAMPLE SHOE INSPECTOR AND REWORKER Body Mass Index 26.21 12/28/2021 1:30 PM SAMPLE SHOE INSPECTOR AND REWORKER documented in this encounter Patient Instructions * Patient Instructions* Nelly Rodriguez - 12/28/2021 1:27 PM SAMPLE SHOE INSPECTOR AND REWORKER BRING YOUR MEDICATIONS TO EVERY VISIT PLEASE For appointments, call us at [phone] and select option 1 or send a [employer] message. PLEASE ARRIVE TO YOUR APPOINTMENTS at least 20-30 minutes before your schedule visit time. NEED AN INSURANCE REFERRAL from us - contact [phone] To request refills, please contact your pharmacy who will reach out to us. If you have changes to your refill prescription, you will need to contact us directly at [phone] and select option 2 orsend your doctor a [employer] message. We request that all prescription refills be requested during regular office phone hours. If your prescription requires a prior authorization, it may take several days for us to get approval from your[employer] company before we can refill your prescription. Call your pharmacy first to confirm if there are any refills on file. Please do not wait until you are completely out to prevent any interruption in your medication. Normal business hours are from 8:00 am to 4:30 pm Tuesday through Tuesday. Our fax number is [phone]. If you have been seen anyplace outside of [facility], please have your records and test results [...] day are given to the Geriatric physician fire department battalion chief. Please call [phone] and identify yourself as a patient in our practice needing to speak to Geriatric Medicine. The senior reactor operator will contact the physician fire department battalion chief. You can generally expect a return call within 30 minutes. On weekends, physicians are seeing hospitalized patients and there may be a longer wait. Test and laboratory results: Our practice typically reports lab and test results through letters orMyChart, the [facility] online patient portal. Please allow 5 days from when your tests are completed to receive the results. IF GOING TO [employer]clouds[employer] or [employer]--PLEASE TAKE LAB ORDER WITH YOU !! If you did not complete your labs at a [facility] facility or at a commercial lab ([employer], [employer]) then we may not have received the results. Please contact the lab and request that they are faxed to us([phone]). For information related to COVID-19, please visit the cdc website at www.cdc.gov. [facility]'s missed appointment policy is: - Patients with 3 consecutively missed appointments OR 3 missed appointments in a 12 month period may be asked to seek consultation outside of [facility]. - A missed appointment is defined as: ?? Arriving to a scheduled appointment too late to be seen (Patients who arrive to clinic later than their scheduled appointment time may not be seen) PLEASE ARRIVE 20-30 minutes before your schedulevisit time. ?? Not showing up for an appointment ?? An appointment cancelled less than 24 hours in advance OUR ADDRESS: [facility], [address] [place] [address] LE SHOE INSPECTOR AND REWORKER documented in this encounter Progress Notes * [...] daily, Disp: 2.5 mL, Rfl: 0 ??? [place]-3 Fatty Acids (FISH OIL) 1200 MG, , [...] derm consult. # STM loss Referral to SAMPLE SHOE INSPECTOR AND REWORKER. [place] , but I think her baseline [...] to drive but only during the day. LE SHOE INSPECTOR AND REWORKER documented in this encounter Plan of Treatment Upcoming Encounters Date Type Department Care Team (Late st Contact Info) Description 12/11/2024 10:30 AM SAMPLE SHOE INSPECTOR AND REWORKER Appointment [facility] Vascular Services [address] [facility], [address] [place] [address] Jarett Reinoso MD [address] [place], [place] [phone] Christine Benitez MD [address] [place] [phone] Keyshawn Krueger MD [address] [place], [place] [phone] Armando Ferro, [address] [address] documented as of this encounter Visit Diagnoses Diagnosis Rash and other nonspecific skin eruption- Primary Itchy eyes Other ill-defined disorder of eye Essential (primary) hypertension Unspecified essential hypertension Influenza vaccine needed Need for prophylactic vaccination and inoculation against influenza documented in this encounter Care Teams Terry Cloth Cutter Hand Relationship Specialty Start Date End Date Diana Mao MD [address] [place] [address] PCP - General 08/05/17 06/14/23 documented as of this encounter
--- OUTSIDE RECORDS SUMMARY | 2024-10-16 00:30 | XMS_ITS | Encounter Summary ---
Author Organization [facility] Address [address] [facility] [place] [address] Care Team Providers Care Cigar Packing Examiner Name Role Phone Diana Mao MD Primary Care Provider [phone] Reason for Visit * Reason Onset Date Comments Results 08/04/2020 Encounter Details Date Type Department Care Team (Late st Contact Info) Description 08/04/2020 Telephone [facility], [place] [address] Tariq Antoine, BUTTONHOLE TACKER-FIRE MANAGEMENT SPECIALIST [address] [place] [phone] Results Social History Tobacco Use Types [...] what further instructions she may have. CB: [phone] JUNG:07/30/20 documented in this encounter Plan of Treatment Upcoming Encounters Date Type Department Care Team (Late st Contact Info) Description 12/11/2024 10:30 AM MANAGER HOSPITAL Appointment [facility] Vascular Services [address] [facility], [address] [place] [address] Jarett Reinoso MD [address] [place], [place] [phone] Christine Benitez MD [address] [place] [address] Keyshawn Krueger MD [address] [place] [address] Armando Ferro, [address] [phone] documented as of this encounter Visit Diagnoses Not on filedocumented in this encounter Care Teams Cigar Packing Examiner Relationship Specialty Start Date End Date Diana Mao MD [address] [place] [address] PCP - General 08/05/17 06/14/23 documented as of this encounter
--- OUTSIDE RECORDS SUMMARY | 2024-10-16 00:30 | XMS_ITS | Encounter Summary ---
Author Organization [facility] Address [address] [facility] [place] [address] Care Team Providers Care Bottom Scrubber Name Role Phone Diana Mao MD Primary Care Provider [phone] Encounter Details Date Type Department Care Team [...] st Contact Info) Description 12/11/2024 10:30 AM SHOE STOCK ASSOCIATE Appointment [facility] Vascular Services [address] [address] Jarett Reinoso MD [address] [place], [place] [phone] Christine Benitez MD [address] [place] [address] Keyshawn Krueger MD [address] [place] [address] [place] [address] [phone] documented as of this encounter Visit Diagnoses Not on filedocumented in this encounter Care Teams Bottom Scrubber Relationship Specialty Start Date End Date Diana aMo MD [address] [place] [address] PCP - General 08/05/17 06/14/23 documented as of this encounter
--- OUTSIDE RECORDS SUMMARY | 2024-10-16 00:30 | XMS_ITS | Encounter Summary ---
Author Organization [facility] Address [address] [facility] [place] [address] Care Team Providers Care Information Technology Assistant Name Role Phone Diana Mao MD Primary Care Provider [phone] Reason for Visit * Reason Comments Injury Leg left Encounter Details Date Type Department Care Team (Late st Contact Info) Description 07/30/2020 10:30 AM CDT Office Visit [address], [place] [phone] Tariq Antoine, SMALL PIECE CUTTER-DEPARTURE CLERK [address] [place] [phone] Acute pain of left knee (Primary Dx) [...] cancel an appointment: Please call us at [phone] and select option 1 or you cansend a [employer] message. To request refills, please contact your pharmacy who will reach out to us. If you have changes to your refill prescription, you will need to contact us directly at [phone] and select option 2 orsend your doctor a [employer] message. We request that all prescription refills be requested during regular office phone hours. If your prescription requires a prior authorization, it may take several days for us to get approval from your[employer] company before we can refill your prescription. Please do not wait until you are completely out before contacting us to prevent any interruption in your medication. Normal business hours are from 8:00 am to 4:30 pm Tuesday through Tuesday. Our fax number is [phone]. If you have been seen anyplace outside of [facility], please have your records and test results [...] day are given to the Geriatric physician chief information security officer. Please call [phone] and identify yourself as a patient in our practice needing to speak to Geriatric Medicine. The team assembly line machine operator will contact the physician chief information security officer. You can generally expect a return call within 30 minutes. On weekends, physicians are seeing hospitalized patients and there may be a longer wait. Test and laboratory results: Our practice typically reports lab and test results through letters orMyChart, the [facility] online patient portal. Please allow 5 days from when your tests are completed to receive the results. If you did not complete your labs on the [facility] campus or at a commercial lab ([employer]) then wemay not have received the results. Please contact the lab and request that they are faxed to us ([phone]). Visit our website at [email or web address] for additional information about [facility] and an interactive health encyclopedia. For information related to COVID-19, please visit the cdc website at www.cdc.gov. [facility]'s missed appointment policy is: - Patients with 3 consecutively missed appointments OR 3 missed appointments in a 12 month period may be asked to seek consultation outside of [facility]. - A missed appointment is defined as: ?? Arriving to a scheduled appointment too late to be seen (Patients who arrive to clinic later than their scheduled appointment time may not be seen) ?? Not showing up for an appointment ?? An appointment cancelled less than 24 hours in advance WE MOVED ! ALL your [facility] doctors will see you in a new location: [facility] Medicine [address] [place] [address] documented in this encounter Progress Notes * Tariq Antoine, SMALL PIECE CUTTER-DEPARTURE CLERK - 07/30/2020 11:14 AM CDT Patient Name: [...] file Gets together: Not on file Attends anglican service: Not on file Active member of [...] st Contact Info) Description 12/11/2024 10:30 AM OFFICER LIEUTENANT Appointment [facility] Vascular Services [address] [facility] [address] [place] [address] Jarett Reinoso MD [address] [place], [place] [phone] Christine Benitez MD [address] [place] [address] Keyshawn Krueger MD [address] [place], [place] [phone] [place] [address] [phone] documented as of this encounter Results * [...] SILVA on 07/30/2020 2:03PM . Tariq Antoine SMALL PIECE CUTTER-DEPARTURE CLERK DIAGNOSTIC IMAGING ORDERABLES documented in this encounter Visit Diagnoses Diagnosis Acute pain of left knee- Primary Acute pain of left knee documented in this encounter Care Teams Information Technology Assistant Relationship Specialty Start Date End Date Diana Mao MD [address] [place] [address] PCP - General 08/05/17 06/14/23 documented as of this encounter
--- OUTSIDE RECORDS SUMMARY | 2024-10-16 00:30 | XMS_ITS | Encounter Summary ---
Author Organization [facility] Address [address] [facility] [place] [address] Care Team Providers Care Firmware Manager Name Role Phone Diana Mao MD Primary Care Provider [phone] Reason for Visit * Reason Onset Date Comments MEDICATION REFILL 12/28/2019 Hydrocholoroci de Encounter Details Date Type Department Care Team (Late st Contact Info) Description 12/28/2019 Refill [facility] [address] [place] [address] Diana Mao MD [address] [address] MEDICATION REFILL (Hydrocholorocide) Social History Tobacco Use [...] for TWO reasons: 1. Needs referral to [facility] for Audiology/Hearing Aid Services (lost a [...] prescriptions requested or ordered in this encounter PROTECTOR documented in this encounter Plan of Treatment Upcoming Encounters Date Type Department Care Team (Late st Contact Info) Description 12/11/2024 10:30 AM GAME PROTECTOR Appointment [facility] Vascular Services [address] [facility] [address] [place] [address] Jarett Reinoso MD 220 [place], [place] [address] Christine Benitez MD [address] [place] [phone] Keyshawn Krueger MD [address] [place], [place] [address] Armando Ferro, [address] [phone] documented as of this encounter Visit Diagnoses Not on filedocumented in this encounter Care Teams Firmware Manager Relationship Specialty Start Date End Date Diana Mao MD 3660 [place] [address] PCP - General 08/05/17 06/14/23 documented as of this encounter
--- OUTSIDE RECORDS SUMMARY | 2024-10-16 00:30 | XMS_ITS | Encounter Summary ---
Author Organization [facility] Address [address] [place] [address] Care Team Providers Care Car Dispatcher Name Role Phone Diana Mao MD Primary Care Provider [phone] Reason for Visit * Reason Onset Date Comments Refill Request 02/19/2019 Encounter Details Date Type Department Care Team (Late Contact Info) Description 02/19/2019 Refill [facility] 36[address] [place] [address] Diana Mao MD [address] [address] Refill Request Social History Tobacco Use Types [...] (Late Contact Info) Description 12/11/2024 10:30 AM CAR DISPATCHER Appointment [facility] Vascular Services [address] [facility] 315 [place] [address] Jarett Renioso MD [address] [place], [place] [address] Christine Benitez MD [address] [place] [phone] Keyshawn Krueger MD [address] [place], [place] [address] Armando Ferro, [address] [phone] documented as of this encounter Visit Diagnoses Diagnosis Essential (primary) hypertension Unspecified essential hypertension documented in this encounter Care Teams Car Dispatcher Relationship Specialty Start Date End Date Diana Mao MD [address] [place] [address] PCP - General 08/05/17 06/14/23 documented as of this encounter
--- OUTSIDE RECORDS SUMMARY | 2024-10-16 00:30 | XMS_ITS | Encounter Summary ---
Author Organization [facility] Address [address] [place] [address] Care Team Providers Care Visual Basic Programmer Name Role Phone Diana Mao MD Primary Care Provider [phone] Yanira Meyers AIR TWISTER WINDER-APPLIQUE SEWER Primary Care Provid er Encounter Details Date Type Department Care Team (Late Contact Info) Description 01/09/[address] [facility] Care DermPath Lab [address] [facility], [place] [phone] Johnny Dodson Jr., MD [address] [facility] [address] [place] [address] Social History Tobacco Use Types Packs/Day Years [...] (Late Contact Info) Description 12/11/2024 10:30 AM SECURITY COORDINATOR Appointment [facility] Health Vascular Services [address] [facility], [address] [place] [address] Jarett Reinoso MD [address] [place] [address] Christine Benitez MD [address] [place] [address] Keyshawn Krueger MD [address] [place] [address] [place] [address] [address] documented as of this encounter Procedures Procedure Name Priority Date/Time Associated Diagnosis Comments DERMATOPATHOLOGY Routine 01/08/2021 12:0 0 AM SECURITY COORDINATOR documented in this encounter Results * DERMATOPATHOLOGY (01/08/2021 12:00 AM SECURITY COORDINATOR) Case Report Dermatopathology Report ? Case: [id number] ? Authorizing Provider: ??Johnny Dodson Jr., MD ??Collected: ? 01/08/2021 12:00 AM ? Ordering Location: ? [facility] DermPath Lab ?Received: ?01/09/2021 10:42 AM ? [...] characteristic determined by the Dermatopathology Laboratory at [facility], directed by Dr. Christine Iraheta. These tests need not be, and therefore are not, approved by the [place] Food and Drug Administration. The tests are used for clinical purposes. Billing Codes Specimen Charges Stain Charges 39144 1 1 1:51 PM CDT DERMATOPATHOLOGY LABORATORY Embedded Images 1:51 PM CDT DERMATOPATHOLOGY LABORATORY Pathology/Cytolog y TISSUE SPECIMEN FROM SKIN / Unknown 01/08/2021 01/09/2021 10:42 AM SECURITY COORDINATOR Johnny Dodson Jr., MD LAB - PATHOLOGY /CYTOLOGY ORDERABLES DERMATOPATHOLOGY LABORATORY [facility] - Department of Dermatology [address] Floor [place], [place] [address] [phone] documented in this encounter Visit Diagnoses Not on filedocumented in this encounter Care Teams Visual Basic Programmer Relationship Specialty Start Date End Date Diana Mao MD [address] [place] [address] PCP - General 08/05/17 06/14/23 Yanira Meyers, AIR TWISTER WINDER-APPLIQUE SEWER [address] [place] [phone] PCP - General Nurse Practitioner Family 06/15/23 documented as of this encounter
--- OUTSIDE RECORDS SUMMARY | 2024-10-16 00:30 | XMS_ITS | Encounter Summary ---
Author Organization [facility] Address [address] [facility] [place] [address] Care Team Providers Care Air Duct Mechanic Name Role Phone Diana Mao MD Primary Care Provider [phone] Reason for Visit * Reason Comments Refill Request Encounter Details Date Type Department Care Team (Late Contact Info) Description 12/09/2021 Refill [facility] [address] [facility] [address] [place] [address] Santiago Mar Che, MD [address] [facility] [address] [place] [address] Refill Request Social History Tobacco [...] (Late Contact Info) Description 12/11/2024 10:30 AM DIAL MAKER Appointment [facility] Vascular Services [address] [facility], [address] [place] [address] Jarett Reinoso MD 220 [place] [address] Christine Benitez MD 220 [place] [address] Keyshawn Krueger MD [address] [place] [address] Armando Ferro, [address] [address] documented as of this encounter Visit Diagnoses Not on filedocumented in this encounter Care Teams Air Duct Mechanic Relationship Specialty Start Date End Date Diana Mao MD [address] [place] [address] PCP - General 08/05/17 06/14/23 documented as of this encounter
--- OUTSIDE RECORDS SUMMARY | 2024-10-16 00:30 | XMS_ITS | Encounter Summary ---
Author Organization [facility] Address [address] [facility] [place] [address] Care Team Providers Care Mixed Signal Design Engineer Name Role Phone Diana Mao MD Primary Care Provider [phone] Encounter Details Date Type Department Care Team [...] st Contact Info) Description 12/11/2024 10:30 AM FLOSSER Appointment [facility] Health Vascular Services [address] [facility], [facility] [address] [place] [address] Jarett Reinoso MD [address] [place], [place] [address] Christine Benitez MD [address] [place] [phone] Keyshawn Krueger MD [address] [place] [address] [place] [address] [address] documented as of this encounter Visit Diagnoses Not on filedocumented in this encounter Care Teams Mixed Signal Design Engineer Relationship Specialty Start Date End Date Diana Mao MD [address] [place] [address] PCP - General 08/05/17 06/14/23 documented as of this encounter
--- OUTSIDE RECORDS SUMMARY | 2024-10-16 00:30 | XMS_ITS | Encounter Summary ---
Author Organization [facility] Address [address] [facility] [place] [address] Care Team Providers Care Automotive Design Drafter Name Role Phone Diana Mao MD Primary Care Provider [phone] Encounter Details Date Type Department Care Team (Late st Contact Info) Description 01/04/2020 1:00 PM SEXUAL ASSAULT COUNSELOR Office Visit [facility] [address] [place], [place] [phone] Diana Mao MD [address] [phone] CKD (chronic kidney disease) stage 4, GFR [...] Comments Blood Pressure 160/78 01/04/2020 2:40 PM SEXUAL ASSAULT COUNSELOR Pulse 69 01/04/2020 2:40 PM SEXUAL ASSAULT COUNSELOR Temperature 36.4 ??C (97.6 ??F) 01/04/2020 2:40 PM CS T Respiratory Rate 17 01/04/2020 2:40 PM SEXUAL ASSAULT COUNSELOR Oxygen Saturation 96% 01/04/2020 2:40 PM SEXUAL ASSAULT COUNSELOR Inhaled Oxygen Concentration - - Weight 80.3 kg (177 lb) 01/04/2020 2:39 PM SEXUAL ASSAULT COUNSELOR Height 170.2 cm (5' 7 ) 01/04/2020 2:39 PM SEXUAL ASSAULT COUNSELOR Body Mass Index 27.72 01/04/2020 2:39 PM SEXUAL ASSAULT COUNSELOR documented in this encounter Progress Notes * [...] file Gets together: Not on file Attends adventism service: Not on file Active member of [...] Range: Clear, Slt Cloudy Cloudy (Abnormal) Specific [place] UA Latest Ref Range: 1.005 - 1.030 [...] st Contact Info) Description 12/11/2024 10:30 AM SEXUAL ASSAULT COUNSELOR Appointment [facility] Health Vascular Services [address] [facility], [facility] [address] [place] [address] Jarett Reinoso MD [address] [place], [place] [phone] Christine Benitez MD [address] [place] [address] Keyshawn Krueger MD [address] [place], [place] [address] [place] [address] [place] [address] documented as of this encounter Results * (ABNORMAL) URINALYSIS W/MICROSCOPIC NO CULTURE (01/04/2020 3:29 PM SEXUAL ASSAULT COUNSELOR) Color UA Yellow Straw, Yellow, Colorless 01/04/2020 4:20 PM [facility] Clarity UA Cloudy(A) Clear, Slt Cloudy 01/04/2020 4:20 PM [facility] Specific [place] UA 1.015 1.005 - 1.030 01/04/2020 4:20 PM [facility] pH UA 6.0 5.0 - 8.0 pH 01/04/2020 4:20 PM [facility] Protein UA 2+(A) Negative mg/dL 01/04/2020 4:20 PM [facility] Glucose UA Negative Negative mg/dL 01/04/2020 4:20 PM [facility] Ketone UA Negative Negative mg/dL 01/04/2020 4:20 PM [facility] Bilirubin UA Negative Negative mg/dL 01/04/2020 4:20 PM [facility] Blood UA Negative Negative 01/04/2020 4:20 PM [facility] Nitrite UA Negative Negative 01/04/2020 4:20 PM [facility] Leukocyte Esterase 3+(A) Negative 01/04/2020 4:20 PM [facility] Urobilinogen UA Negative Negative mg/dL 01/04/2020 4:20 PM [facility] RBC UA 3-5 None Seen, 0-2, 3-5 /HPF 01/04/2020 4:20 PM [facility] WBC UA 21-50(A) None Seen, 0-5 /HPF 01/04/2020 4:20 PM [facility] Bacteria UA Trace None, Trace /HPF 01/04/2020 4:20 PM [facility] Squamous Epithelial Cells UA 11-20(A) None Seen, 0-2 /HPF 01/04/2020 4:20 PM [facility] Mucus UA 1+ None, 1+ /LPF 01/04/2020 4:20 PM [facility] Transitional Epithelial Cells UA 0-2 None Seen, 0-2 /HPF 01/04/2020 4:20 PM [facility] Hyaline Casts UA 3-5(A) None Seen, 0-2 /LPF 01/04/2020 4:20 PM [facility] Urine URINE SPECIMEN OBTAINED BY CLEAN CATCH PROCEDURE / Unknown Collection / Unknown 01/04/2020 3:29 PM SEXUAL ASSAULT COUNSELOR 01/04/2020 3:56 PM [facility] - 01/04/2020 4:20 PM SEXUAL ASSAULT COUNSELOR Diana Mao MD LAB - URINALYSIS ORD ERABLES [facility] [address] [phone] * (ABNORMAL) CBC WITH DIFFERENTIAL (01/04/2020 3:15 PM SEXUAL ASSAULT COUNSELOR) WBC 5.9 3.5 - 10.5 10? 3 /uL 01/04/2020 4:15 PM [facility] RBC 3.82(L) 3.90 - 5.00 10? 6 /uL 01/04/2020 4:15 PM [facility] Hemoglobin 10.7(L) 12.0 - 15.5 g/dL 01/04/2020 4:15 PM [facility] Hematocrit 32.5(L) 35.0 - 45.0 % 01/04/2020 4:15 PM [facility] MCV 85.1 81.0 - 97.0 fL 01/04/2020 4:15 PM [facility] MCH 28.0 28.0 - 34.0 pg 01/04/2020 4:15 PM [facility] MCHC 32.9 32.0 - 36.0 g/dL 01/04/2020 4:15 PM [facility] Platelet Count 269 150 - 400 10? 3 /uL 01/04/2020 4:15 PM [facility] RDW-SD 40.6 36.0 - 50.0 fL 01/04/2020 4:15 PM [facility] RDW-CV 13.1 11.2 - 14.8 % 01/04/2020 4:15 PM [facility] MPV 9.3 9.3 - 12.8 fL 01/04/2020 4:15 PM [facility] nRBC Absolute 0.00 0 10? 3 /uL 01/04/2020 4:15 PM [facility] nRBC Auto 0.0 0 /100 WBC 01/04/2020 4:15 PM [facility] Neutrophils % 51.6 35.0 - 70.0 % 01/04/2020 4:15 PM [facility] Lymphocytes % 30.5 19.7 - 55.1 % 01/04/2020 4:15 PM [facility] Monocytes % 12.3 3.0 - 15.0 % 01/04/2020 4:15 PM [facility] Eosinophils % 4.6 0.0 - 6.0 % 01/04/2020 4:15 PM [facility] Basophil % 0.8 0.0 - 1.5 % 01/04/2020 4:15 PM [facility] Neutrophils Absolute 3.1 1.6 - 7.0 10? 3 /uL 01/04/2020 4:15 PM [facility] Lymphocyte Absolute 1.8 0.8 - 2.9 10? 3 /uL 01/04/2020 4:15 PM [facility] Monocytes Absolute 0.73(H) 0.14 - 0.66 10? 3 /uL 01/04/2020 4:15 PM [facility] Eosinophils Absolute 0.27 0.00 - 0.45 10? 3 /uL 01/04/2020 4:15 PM [facility] Basophils Absolute 0.05 0.00 - 0.06 10? 3 /uL 01/04/2020 4:15 PM [facility] Immature Granulocytes % 0.2 0.0 - 1.0 % 01/04/2020 4:15 PM [facility] Blood BLOOD SPECIMEN / Unknown Lab Venipuncture / Unknown 01/04/2020 3:15 PM SEXUAL ASSAULT COUNSELOR 01/04/2020 3:56 PM SEXUAL ASSAULT COUNSELOR Diana Mao MD LAB - HEMATOLOGY ORD ERABLES [facility] [address] [phone] * VITAMIN B12 (01/04/2020 3:15 PM SEXUAL ASSAULT COUNSELOR) Pathologist [facility] Vitamin B12 809 213 - 816 pg/mL 01/04/2020 5:19 PM SEXUAL ASSAULT COUNSELOR [facility] Blood BLOOD SPECIMEN / Unknown Lab Venipuncture / Unknown 01/04/2020 3:15 PM SEXUAL ASSAULT COUNSELOR 01/04/2020 3:56 PM SEXUAL ASSAULT COUNSELOR Diana Mao MD LAB - CHEMISTRY PATRICIA CASIANO [address] [phone] * TSH (01/04/2020 3:15 PM SEXUAL ASSAULT COUNSELOR) [facility] TSH 2.452 0.350 - 4.940 uIU/mL 01/04/2020 5:19 PM [facility] Blood BLOOD SPECIMEN / Unknown Lab Venipuncture / Unknown 01/04/2020 3:15 PM SEXUAL ASSAULT COUNSELOR 01/04/2020 3:56 PM SEXUAL ASSAULT COUNSELOR Diana Mao MD LAB - CHEMISTRY PATRICIA CASIANO [address] [phone] * (ABNORMAL) BASIC METABOLIC PANEL (CALCIUM TOTAL) (01/04/2020 3:15 PM SEXUAL ASSAULT COUNSELOR) [facility] BUN 47(H) 7 - 26 mg/dL 01/04/2020 4:50 PM [facility] Creatinine 2.1(H) 0.6 - 1.2 mg/dL 01/04/2020 4:50 PM [facility] Sodium 141 136 - 145 mmol/L 01/04/2020 4:50 PM [facility] Potassium 3.6 3.5 - 4.5 mmol/L 01/04/2020 4:50 PM [facility] Chloride 102 98 - 107 mmol/L 01/04/2020 4:50 PM [facility] CO2 27 22 - 29 mmol/L 01/04/2020 4:50 PM [facility] Glucose 98 70 - 115 mg/dL 01/04/2020 4:50 PM [facility] Calcium 9.3 8.4 - 10.2 mg/dL 01/04/2020 4:50 PM [facility] Anion Gap 16 8 - 18 01/04/2020 4:50 PM [facility] BUN/Creatinine Ratio 22 7 - 23 01/04/2020 4:50 PM [facility] Osmolality Calculated 304(H) 270 - 300 mOsm/kg 01/04/2020 4:50 PM [facility] eGFR 23(L) >60 mL/min/1.7 3 m2 01/04/2020 4:50 PM [facility] Blood BLOOD SPECIMEN / Unknown Lab Venipuncture / Unknown 01/04/2020 3:15 PM SEXUAL ASSAULT COUNSELOR 01/04/2020 3:56 PM SEXUAL ASSAULT COUNSELOR Diana Mao MD LAB - CHEMISTRY PATRICIA CASIANO [facility] Organization Address City/State/ZIP Co de Phone Number [facility] [address] [phone] documented in this encounter Visit Diagnoses Diagnosis CKD (chronic kidney disease) stage 4, GFR 15-29 ml/min (HCC)- Primary Chronic kidney disease, Stage IV (severe) Essential hypertension documented in this encounter Care Teams Automotive Design Drafter Relationship Specialty Start Date End Date Diana Mao MD [address] [place] [address] PCP - General 08/05/17 06/14/23 documented as of this encounter
--- OUTSIDE RECORDS SUMMARY | 2024-10-16 00:30 | XMS_ITS | Encounter Summary ---
Author Organization [facility] Address [address] [place] [address] Care Team Providers Care Assistant Mechanic Name Role Phone Diana Mao MD Primary Care Provider [phone] Reason for Visit * Reason Onset Date Comments Breathing Problem 04/24/2021 Encounter Details Date Type Department Care Team (Late st Contact Info) Description 04/24/2021 Telephone [facility] [address] [place] [address], [place] [phone] Diana Mao MD [address] [place] [address] Breathing Problem Social History Tobacco Use Types [...] Dr. Mao thinks she should do. CB: [phone] JUNG: 02/02/21 NOV: 08/10/21 documented in this encounter Plan of Treatment Upcoming Encounters Date Type Department Care Team (Late st Contact Info) Description 12/11/2024 10:30 AM EXPANDER MACHINE OPERATOR Appointment [facility] Vascular Services [address] [facility], [address] [address] Jarett Reinoso MD [address] [place], [place] [address] Christine Benitez MD [address] [place] [address] Keyshawn Krueger MD [address] [place], [place] [address] [place] [address] [address] documented as of this encounter Visit Diagnoses Not on filedocumented in this encounter Care Teams Assistant Mechanic Relationship Specialty Start Date End Date Diana Mao MD [address] [place] [address] PCP - General 08/05/17 06/14/23 documented as of this encounter
--- OUTSIDE RECORDS SUMMARY | 2024-10-16 00:30 | XMS_ITS | Encounter Summary ---
Author Organization [facility] Address [address] [facility] [address] Care Team Providers Care Desizing Machine Offbearer Name Role Phone Diana Mao MD Primary Care Provider [phone] Reason for Visit * Reason Comments Follow-up Encounter Details Date Type Department Care Team (Late st Contact Info) Description 09/08/2018 1:40 PM LAUNDRY ASSISTANT Office Visit [facility] [address] [place] [address] Diana Mao MD [address] [address] Need for influenza vaccination (Primary Dx); Essential [...] Comments Blood Pressure 132/72 09/08/2018 1:48 PM LAUNDRY ASSISTANT Pulse 80 09/08/2018 1:48 PM LAUNDRY ASSISTANT Temperature 36.1 ??C (97 ??F) 09/08/2018 1:48 PM LAUNDRY ASSISTANT Respiratory Rate - - Oxygen Saturation 97% 09/08/2018 1:48 PM LAUNDRY ASSISTANT Inhaled Oxygen Concentration - - Weight 83 kg (182 lb 14.4 oz) 09/08/2018 1:48 PM LAUNDRY ASSISTANT Height 170.2 cm (5' 7 ) 09/08/2018 1:48 PM LAUNDRY ASSISTANT Body Mass Index 28.65 09/08/2018 1:48 PM LAUNDRY ASSISTANT documented in this encounter Patient Instructions * Patient Instructions* Diana Mao MD - 09/08/2018 2:58 PM LAUNDRY ASSISTANT 1. Find an exercise program so you have something for at least 20 minutes for at least 4 x week. 2. Updated today pneumonia vaccine, flu vaccine. 3. Go to chief investigator, eye doctr and and dentis. 4. Send reports of mammogram and colonoscopy. %. Records from your drawer in jacquard loom. DRY ASSISTANT documented in this encounter Progress Notes [...] needs mammogram wants to get them in [place]. Needs second pneumovax (I)History of Present Illness/Interval History (Document L3=more than 1; L4/5=more than 4 elements)(Note onset, duration, location, quality, radiation, severity, timing, context, modifying factors, assoc. symptoms): Concerned about renal function but I have no labs from her drawer in jacquard loom. His note says he is concerned about [...] activity counselling on support for cancer patients. DRY ASSISTANT documented in this encounter Plan of Treatment Upcoming Encounters Date Type Department Care Team (Late st Contact Info) Description 12/11/2024 10:30 AM LAUNDRY ASSISTANT Appointment [facility] Vascular Services [address] [facility] [address] [place] [address] Jarett Reinoso MD [address] [place], [place] [address] Christine Benitez MD [address] [place] [address] Keyshawn Krueger MD [address] [place], [place] [address] [place] [address] [phone] documented as of this encounter Visit Diagnoses Diagnosis Need for influenza vaccination- Primary Need for prophylactic vaccination and inoculation against influenza Essential (primary) hypertension Unspecified essential hypertension 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
--- OUTSIDE RECORDS SUMMARY | 2024-10-16 00:30 | XMS_ITS | Encounter Summary ---
Author Organization [facility] Address [address] [facility] [place] [address] Care Team Providers Care B2B Sales Professional Name Role Phone Diana Mao MD Primary Care Provider [phone] Reason for Visit * Reason Onset Date Comments Breathing Problem 06/10/2021 Occasional SOB ; leg swelling (nothing new) Encounter Details Date Type Department Care Team (Late st Contact Info) Description 06/10/2021 Telephone [facility] [address] [place] [address], [facility] [place] [phone] Diana Mao MD [address] [place] [address] Breathing Problem (Occasional SOB; leg swelling (nothing [...] still needs something from [place] to call [phone] and press the option for the nurse. [...] st Contact Info) Description 12/11/2024 10:30 AM CHILD PROTECTIVE SERVICES SOCIAL WORKER Appointment [facility] Vascular Services [address] [facility], [address] [place] [address] Jarett Reinoso MD [address] [place], [place] [address] Christine Benitez MD [address] [place] [phone] Keyshawn Krueger MD [address] [place], [place] [address] [place] [address] [address] documented as of this encounter Visit Diagnoses Not on filedocumented in this encounter Care Teams B2B Sales Professional Relationship Specialty [place] [address] [place] [address] PCP - General 08/05/17 06/14/23 documented as of this encounter
--- OUTSIDE RECORDS SUMMARY | 2024-10-16 00:30 | XMS_ITS | Encounter Summary ---
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 PLEASE ARRIVE TO YOUR APPOINTMENTS at least 20-30 minutes before your schedule visit time. NEED AN INSURANCE REFERRAL from us - contact [phone] To request refills, please contact your pharmacy who will reach out to us. If you have changes to your refill prescription, you will need to contact us directly at [phone] and select option 2 orsend your doctor a [facility] message. We request that all prescription refills be requested during regular office phone hours. If your prescription requires a prior authorization, it may take several days for us to get approval from [employer] company before we can refill your prescription. Call your pharmacy first to confirm if there are any refills on file. Please do not wait until you are completely out to prevent any interruption in your medication. Normal business hours are from 8:00 am to 4:30 pm Tuesday through Tuesday. Our fax number is [phone]. If you have been seen anyplace outside of [facility], please have your records and test results [...] day are given to the Geriatric physician bonderizer. Please call [phone] and identify yourself as a patient in our practice needing to speak to Geriatric Medicine. The barrel dedenting machine operator will contact the physician bonderizer. You can generally expect a return call within 30 minutes. On weekends, physicians are seeing hospitalized patients and there may be a longer wait. Test and laboratory results: Our practice typically reports lab and test results through letters orMyChart, the [facility] online patient portal. Please allow 5 days from when your tests are completed to receive the results. IF GOING TO [facility] or [facility]--PLEASE TAKE LAB ORDER WITH YOU !! If you did not complete your labs at a [facility] facility or at a commercial lab ([facility]) then we may not have received the results. Please contact the lab and request that they are faxed to us([phone]). For information related to COVID-19, please visit the cdc website at www.cdc.gov. [facility]'s missed appointment policy is: - Patients with 3 consecutively missed appointments OR 3 missed appointments in a 12 month period may be asked to seek consultation outside of [facility]. - A missed appointment is defined as: ?? Arriving to a scheduled appointment too late to be seen (Patients who arrive to clinic later than their scheduled appointment time may not be seen) PLEASE ARRIVE 20-30 minutes before your schedulevisit time. ?? Not showing up for an appointment ?? An appointment cancelled less than 24 hours in advance OUR ADDRESS: [facility], [address] [place], [place] [id number] documented in this encounter Progress Notes * [...] mg by mouth, Disp: , Rfl: ??? [place]-3 Fatty Acids (FISH OIL DELAYED RELEASE) 1000 [...] st Contact Info) Description 12/11/2024 10:30 AM CHARCOAL BURNER BEEHIVE KILN Appointment [facility] Vascular Services [address] [facility], [facility] [address] [place] [address] Jarett Reinoso MD [address] [place] [address] Christine Benitez MD [address] [place] [address] Keyshawn Krueger MD [address] [place], [place] [id number] Armando Ferro, [address] [address] documented as of this encounter [...] (HCC) documented in this encounter Care Teams Technical Associate Relationship Specialty Start Date End Date Diana Mao MD [address] [place] [address] PCP - General 08/05/17 06/14/23 documented as of this encounter
--- OUTSIDE RECORDS SUMMARY | 2024-10-16 00:30 | XMS_ITS | Encounter Summary ---
Author Organization [facility] Address [address] [facility] [place] [address] Care Team Providers Care Auditor Tax Name Role Phone Diana Mao MD Primary Care Provider [phone] Encounter Details Date Type Department Care Team (Latest Contact Info) Description 07/30/2020 12:08 PM CDT - 07/30/2020 11:59 PM CDT Hospital Encounter [facility] [address] DIAGNOSTIC RAD OP [address] [place] [id number] Tariq Antoine, NUT TIGHTENER-MARINA SALES AND SERVICE SUPERVISOR [address] [facility] [place] [phone] Discharge Disposition: Home or Self Care Social [...] st Contact Info) Description 12/11/2024 10:30 AM CHEESE SUPERVISOR Appointment [facility] Vascular Services [address] [facility] [address] [place], [place] [id number] Jarett Reinoso MD [address] [place], [place] [address] Christine Benitez MD [address] [place] [phone] Keyshawn Krueger MD [address] [place], [place] [address] [place] [address] [phone] documented as of this encounter Procedures Procedure [...] SILVA on 07/30/2020 2:03PM . Tariq Antoine NUT TIGHTENER-MARINA SALES AND SERVICE SUPERVISOR DIAGNOSTIC IMAGING ORDERABLES documented in this encounter Visit Diagnoses Diagnosis Acute pain of left knee documented in this encounter Care Teams Auditor Tax Relationship Specialty Start Date End Date Diana Mao MD [address] [place] [address] PCP - General 08/05/17 06/14/23 documented as of this encounter
--- OUTSIDE RECORDS SUMMARY | 2024-10-16 00:30 | XMS_ITS | Encounter Summary ---
Author Organization 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 Vascular Services [address] [facility], [address] [place] [address] Jarett Reinoso MD [address] [place], [place] [phone] Christine Benitez MD [address] [place] [address] Keyshawn Krueger MD [address] [place], [place] [address] Armando Ferro, [address] [address] documented as of this encounter [...] glucose documented in this encounter Care Teams Tube Worker Relationship Specialty Start Date End Date Diana Mao MD [address] [place] [address] PCP - General 08/05/17 06/14/23 documented as of this encounter
--- OUTSIDE RECORDS SUMMARY | 2024-10-16 00:30 | XMS_ITS | Encounter Summary ---
Author Organization [facility] Address [address] [place] [address] Care Team Providers Care Fixed Route Operator Name Role Phone Diana Mao MD Primary Care Provider [phone] Encounter Details Date Type Department Care Team (Late Contact Info) Description 11/30/2021 Orders Only [facility] [address] [place] [address], [place] [phone] Diana Mao MD [address] [place], [place] [address] [place] [address] Itchy eyes Social History Tobacco Use Types [...] st Contact Info) Description 12/11/2024 10:30 AM PRESS OPERATOR ASSISTANT Appointment [facility] Vascular Services [address] [facility], [address] [address] Jarett Reinoso MD [address] [place] [address] Christine Benitez MD [address] [place] [address] Keyshawn Krueger MD [address] [place] [address] Armando Ferro, [address] [address] documented as of this encounter Visit Diagnoses Diagnosis Itchy eyes- Primary Other ill-defined disorder of eye documented in this encounter Care Teams Fixed Route Operator Relationship Specialty Start Date End Date Diana Mao MD [address] [place] [address] PCP - General 08/05/17 06/14/23 documented as of this encounter
--- OUTSIDE RECORDS SUMMARY | 2024-10-16 00:30 | XMS_ITS | Encounter Summary ---
Author Organization [facility] Address [address] [facility] [place] [address] Care Team Providers Care Senior Tax Analyst Name Role Phone Diana Mao MD Primary Care Provider [phone] Reason for Visit * Reason Onset Date Comments Abnormal Results Follow Up 10/02/2021 Encounter Details Date Type Department Care Team (Late st Contact Info) Description 10/02/2021 Telephone [facility] [address] [place] [address] Santiago Mar Che, MD [address] [place] [address] Abnormal Results Follow Up Social [...] Cherry Johnston RN - 10/02/2021 3:36 PM GREEN CHAIN MARKER Notified patient of Dr Mar's results message. Left voice mail message N CHAIN MARKER * Telephone Encounter - Cherry Johnston RN - 10/02/2021 3:34 PM GREEN CHAIN MARKER ----- Message from Santiago Mar MD sent at 10/02/2021 3:33 PM GREEN CHAIN MARKER ----- Treated with macrobid. Normally a colonizer, but cath specimen N CHAIN MARKER documented in this encounter Plan of Treatment Upcoming Encounters Date Type Department Care Team (Late st Contact Info) Description 12/11/2024 10:30 AM GREEN CHAIN MARKER Appointment [facility] Vascular Services [address] [facility] [address] [place] [address] Jarett Reinoso MD [address] [place] [address] Christine Benitez MD [address] [place] [address] Keyshawn Krueger MD [address] [place] [address] Armando Ferro, [address] [phone] documented as of this encounter Visit Diagnoses Not on filedocumented in this encounter Care Teams Senior Tax Analyst Relationship Specialty Start Date End Date Diana Mao MD [address] [place] [address] PCP - General 08/05/17 06/14/23 documented as of this encounter
--- OUTSIDE RECORDS SUMMARY | 2024-10-16 00:30 | XMS_ITS | Encounter Summary ---
Author Organization [facility] Address [address] [facility] [place] [address] Care Team Providers Care Forensic Artist Name Role Phone Diana Mao MD Primary Care Provider [phone] Reason for Visit * Reason Onset Date Comments Medication Management 12/29/2021 Encounter Details Date Type Department Care Team (Late st Contact Info) Description 12/29/2021 Telephone [facility] [address] [place] [address], [place] [phone] Diana Mao MD [address] [place] [address] Medication Management Social History Tobacco Use Types [...] If any question pt to call office SCHOOL SUSPENSION AIDE * Telephone Encounter - Carolyn Herrera LPN [...] [facility], [facility], [employer], they all have them SCHOOL SUSPENSION AIDE * Telephone Encounter - Carolyn Herrera LPN - 12/29/2021 1:35 PM CST Received fax stating olopatadine (PATADAY) 0.2 % ophthalmic solution is not covered by insurance requesting alternative SCHOOL SUSPENSION AIDE documented in this encounter Plan of Treatment Upcoming Encounters Date Type Department Care Team (Late st Contact Info) Description 12/11/2024 10:30 AM IN SCHOOL SUSPENSION AIDE Appointment [facility] Vascular Services [address] [facility], [facility] [address] [place] [address] Jarett Reinoso MD [address] [place], [place] [phone] Christine Benitez MD [address] [place] [phone] Keyshawn Krueger MD [address] [place], [place] [address] [place] [address] [phone] documented as of this encounter Visit Diagnoses Not on filedocumented in this encounter Care Teams Forensic Artist Relationship Specialty Start Date End Date Diana Mao MD [address] [place] [address] PCP - General 08/05/17 06/14/23 documented as of this encounter
--- OUTSIDE RECORDS SUMMARY | 2024-10-16 00:30 | XMS_ITS | Encounter Summary ---
Author Organization [facility] Address [address] [facility] [place] [address] Care Team Providers Care Carpenter/Labor Name Role Phone Diana Mao MD Primary Care Provider [phone] Encounter Details Date Type Department Care Team (Late Contact Info) Description 01/22/2021 Orders Only [facility] - COVID Vax [address] [place] [address] Wojciech Navarro MD [address] [facility] [address] [place] [address] Need for vaccination Social History [...] (Late Contact Info) Description 12/11/2024 10:30 AM BULK RECEIVER Appointment [facility] Vascular Services [address] [facility], [facility] [address] [place] [address] Jarett Reinoso MD [address] [place] [address] Christine Benitez MD [address] [place] [address] Keyshawn Krueger MD [address] [facility] [place] [address] Armando Ferro, [address] [address] documented as of this encounter Visit Diagnoses Diagnosis Need for vaccination Need for prophylactic vaccination and inoculation against unspecified single disease documented in this encounter Care Teams Carpenter/Labor Relationship Specialty Start Date End Date Diana Mao MD [address] [place] [address] PCP - General 08/05/17 06/14/23 documented as of this encounter
--- OUTSIDE RECORDS SUMMARY | 2024-10-16 00:30 | XMS_ITS | Encounter Summary ---
Author Organization [facility] Address [address] [place] [address] Care Team Providers Care Olive Pitter Name Role Phone Diana Mao MD Primary Care Provider [phone] Reason for Visit * Reason Onset Date Comments Referral 11/27/2021 Encounter Details Date Type Department Care Team (Late st Contact Info) Description 11/27/2021 Telephone [facility] [address] [place] [address], [place] [phone] Diana Mao MD [address] [place] [address] Referral Social History Tobacco Use Types Packs/Day [...] to dermatology. She can be reached at [phone]. Please advise. DISASTER RECOVERY MANAGER documented in this encounter Plan of Treatment Upcoming Encounters Date Type Department Care Team (Late st Contact Info) Description 12/11/2024 10:30 AM IT DISASTER RECOVERY MANAGER Appointment [facility] Vascular Services [address] [facility], [facility] [address] [place], [place] [address] Jarett Reinoso MD [address] [place], [place] [address] Christine Benitez MD [address] [place] [address] Keyshawn Krueger MD [address] [place] [address] [place] [address] [address] documented as of this encounter Visit Diagnoses Not on filedocumented in this encounter Care Teams Olive Pitter Relationship Specialty Start Date End Date Diana Mao MD [address] [place] [address] PCP - General 08/05/17 06/14/23 documented as of this encounter
--- OUTSIDE RECORDS SUMMARY | 2024-10-16 00:30 | XMS_ITS | Encounter Summary ---
Author Organization [facility] Address [address] [place] [address] Care Team Providers Care School Bus Driver/Mechanic Name Role Phone Diana Mao MD Primary Care Provider [phone] Encounter Details Date Type Department Care Team (Latest Contact Info) Description 01/04/2020 3:00 PM FLOATING LABOR GANG SUPERVISOR - 01/04/2020 11:59 PM [facility] Hospital Encounter [facility] LAB DRAW STATION [address] [place] [address] Diana Mao MD [address] [facility] 2[address] KIT [facility] [place] [address] Discharge Disposition: Home or Self Care Social [...] st Contact Info) Description 12/11/2024 10:30 AM FLOATING LABOR GANG SUPERVISOR Appointment [facility] Vascular Services [address] [facility] [address] [place] [address] Jarett Reinoso MD [address] [place], [place] [address] Christine Benitez MD [address] [place] [address] Keyshawn Krueger MD [address] [place], [place] [address] [place] [address] [phone] documented as of this encounter Procedures Procedure Name Priority Date/Time Associated Diagnosis Comments URINALYSIS W/MICROSCOPIC NO CULTURE Routine 01/04/2020 3:29 PM FLOATING LABOR GANG SUPERVISOR CKD (chronic kidney disease) stage 4, GFR 15-29 ml/min (HCC) Essential hypertension CBC W AUTO DIFFERENTIAL Routine 01/04/2020 3:15 PM FLOATING LABOR GANG SUPERVISOR CKD (chronic kidney disease) stage 4, GFR 15-29 ml/min (HCC) Essential hypertension BASIC METABOLIC PANEL (CALCIUM TOTAL) Routine 01/04/2020 3:15 PM FLOATING LABOR GANG SUPERVISOR CKD (chronic kidney disease) stage 4, GFR 15-29 ml/min (HCC) Essential hypertension VITAMIN B12 Routine 01/04/2020 3:15 PM FLOATING LABOR GANG SUPERVISOR CKD (chronic kidney disease) stage 4, GFR 15-29 ml/min (HCC) Essential hypertension TSH Routine 01/04/2020 3:15 PM FLOATING LABOR GANG SUPERVISOR CKD (chronic kidney disease) stage 4, GFR 15-29 ml/min (HCC) Essential hypertension documented in this encounter Results * (ABNORMAL) URINALYSIS W/MICROSCOPIC NO CULTURE (01/04/2020 3:29 PM FLOATING LABOR GANG SUPERVISOR) Color UA Yellow Straw, Yellow, Colorless 01/04/2020 4:[address] [facility] Clarity UA Cloudy(A) Clear, Slt Cloudy 01/04/2020 4:20 PM [facility] Specific [place] UA 1.015 1.005 - 1.030 01/04/2020 4:20 PM [facility] pH UA 6.0 5.0 - 8.0 pH 01/04/2020 4:[address] [facility] Protein UA 2+(A) Negative mg/dL 01/04/2020 4:[address] [facility] Glucose UA Negative Negative mg/dL 01/04/2020 4:[address] [facility] Ketone UA Negative Negative mg/dL 01/04/2020 4:[address] [facility] Bilirubin UA Negative Negative mg/dL 01/04/2020 4:20 PM [facility] Blood UA Negative Negative 01/04/2020 4:[address] [facility] Nitrite UA Negative Negative 01/04/2020 4:20 PM FLOATING LABOR GANG SUPERVISOR [facility] Leukocyte Esterase 3+(A) Negative 01/04/2020 4:20 PM [facility] Urobilinogen UA Negative Negative mg/dL 01/04/2020 4:20 PM [facility] RBC UA 3-5 None Seen, 0-2, 3-5 /HPF 01/04/2020 4:20 PM [facility] WBC UA 21-50(A) None Seen, 0-5 /HPF 01/04/2020 4:20 PM [facility] Bacteria UA Trace None, Trace /HPF 01/04/2020 4:20 PM [facility] Squamous Epithelial Cells UA 11-20(A) None Seen, 0-2 /HPF 01/04/2020 4:20 PM [facility] Mucus UA 1+ None, 1+ /LPF 01/04/2020 4:20 PM [facility] Transitional Epithelial Cells UA 0-2 None Seen, 0-2 /HPF 01/04/2020 4:20 PM [facility] Hyaline Casts UA 3-5(A) None Seen, 0-2 /LPF 01/04/2020 4:20 PM [facility] Urine URINE SPECIMEN OBTAINED BY CLEAN CATCH PROCEDURE / Unknown Collection / Unknown 01/04/2020 3:29 PM FLOATING LABOR GANG SUPERVISOR 01/04/2020 3:56 PM FLOATING LABOR GANG SUPERVISOR [facility] - 01/04/2020 4:20 PM FLOATING LABOR GANG SUPERVISOR Diana Mao MD LAB - URINALYSIS ORD ERABLES [facility] [address] [place] [address] * (ABNORMAL) CBC WITH DIFFERENTIAL (01/04/2020 3:15 PM FLOATING LABOR GANG SUPERVISOR) WBC 5.9 3.5 - 10.5 10? 3 /uL 01/04/2020 4:15 PM [facility] RBC 3.82(L) 3.90 - 5.00 10? 6 /uL 01/04/2020 4:15 PM [facility] Hemoglobin 10.7(L) 12.0 - 15.5 g/dL 01/04/2020 4:15 PM [facility] Hematocrit 32.5(L) 35.0 - 45.0 % 01/04/2020 4:15 PM [facility] MCV 85.1 81.0 - 97.0 fL 01/04/2020 4:15 PM [facility] MCH 28.0 28.0 - 34.0 pg 01/04/2020 4:15 PM [facility] MCHC 32.9 32.0 - 36.0 g/dL 01/04/2020 4:15 PM [facility] Platelet Count 269 150 - 400 10? 3 /uL 01/04/2020 4:15 PM [facility] RDW-SD 40.6 36.0 - 50.0 fL 01/04/2020 4:15 PM [facility] RDW-CV 13.1 11.2 - 14.8 % 01/04/2020 4:15 PM [facility] MPV 9.3 9.3 - 12.8 fL 01/04/2020 4:15 PM [facility] nRBC Absolute 0.00 0 10? 3 /uL 01/04/2020 4:15 PM [facility] nRBC Auto 0.0 0 /100 WBC 01/04/2020 4:15 PM [facility] Neutrophils % 51.6 35.0 - 70.0 % 01/04/2020 4:15 PM [facility] Lymphocytes % 30.5 19.7 - 55.1 % 01/04/2020 4:15 PM [facility] Monocytes % 12.3 3.0 - 15.0 % 01/04/2020 4:15 PM [facility] Eosinophils % 4.6 0.0 - 6.0 % 01/04/2020 4:15 PM [facility] Basophil % 0.8 0.0 - 1.5 % 01/04/2020 4:15 PM [facility] Neutrophils Absolute 3.1 1.6 - 7.0 10? 3 /uL 01/04/2020 4:15 PM [facility] Lymphocyte Absolute 1.8 0.8 - 2.9 10? 3 /uL 01/04/2020 4:15 PM [facility] Monocytes Absolute 0.73(H) 0.14 - 0.66 10? 3 /uL 01/04/2020 4:15 PM [facility] Eosinophils Absolute 0.27 0.00 - 0.45 10? 3 /uL 01/04/2020 4:15 PM FLOATING LABOR GANG SUPERVISOR [facility] Basophils Absolute 0.05 0.00 - 0.06 10? 3 /uL 01/04/2020 4:15 PM FLOATING LABOR GANG SUPERVISOR [facility] Immature Granulocytes % 0.2 0.0 - 1.0 % 01/04/2020 4:15 PM FLOATING LABOR GANG SUPERVISOR [facility] Blood BLOOD SPECIMEN / Unknown Lab Venipuncture / Unknown 01/04/2020 3:15 PM FLOATING LABOR GANG SUPERVISOR 01/04/2020 3:56 PM FLOATING LABOR GANG SUPERVISOR Diana Mao MD LAB - HEMATOLOGY ORD ERAPAM [address] [phone] * VITAMIN B12 (01/04/2020 3:15 PM FLOATING LABOR GANG SUPERVISOR) Vitamin B12 809 213 - 816 pg/mL 01/04/2020 5:19 PM FLOATING LABOR GANG SUPERVISOR [facility] Blood BLOOD SPECIMEN / Unknown Lab Venipuncture / Unknown 01/04/2020 3:15 PM FLOATING LABOR GANG SUPERVISOR 01/04/2020 3:56 PM FLOATING LABOR GANG SUPERVISOR Diana Mao MD LAB - CHEMISTRY PATRICIA CASIANO [address] [phone] * TSH (01/04/2020 3:15 PM FLOATING LABOR GANG SUPERVISOR) TSH 2.452 0.350 - 4.940 uIU/mL 01/04/2020 5:19 PM FLOATING LABOR GANG SUPERVISOR [facility] Blood BLOOD SPECIMEN / Unknown Lab Venipuncture / Unknown 01/04/2020 3:15 PM FLOATING LABOR GANG SUPERVISOR 01/04/2020 3:56 PM FLOATING LABOR GANG SUPERVISOR Diana Mao MD LAB - CHEMISTRY [place] [address], [facility] [phone] * (ABNORMAL) BASIC METABOLIC PANEL (CALCIUM TOTAL) (01/04/2020 3:15 PM FLOATING LABOR GANG SUPERVISOR) BUN 47(H) 7 - 26 mg/dL 01/04/2020 4:50 PM [facility] Creatinine 2.1(H) 0.6 - 1.2 mg/dL 01/04/2020 4:50 PM [facility] Sodium 141 136 - 145 mmol/L 01/04/2020 4:50 PM [facility] Potassium 3.6 3.5 - 4.5 mmol/L 01/04/2020 4:50 PM [facility] Chloride 102 98 - 107 mmol/L 01/04/2020 4:50 PM [facility] CO2 27 22 - 29 mmol/L 01/04/2020 4:50 PM [facility] Glucose 98 70 - 115 mg/dL 01/04/2020 4:50 PM [facility] Calcium 9.3 8.4 - 10.2 mg/dL 01/04/2020 4:50 PM [facility] Anion Gap 16 8 - 18 01/04/2020 4:50 PM [facility] BUN/Creatinine Ratio 22 7 - 23 01/04/2020 4:50 PM [facility] Osmolality Calculated 304(H) 270 - 300 mOsm/kg 01/04/2020 4:50 PM [facility] eGFR 23(L) >60 mL/min/1.7 3 m2 01/04/2020 4:50 PM [facility] Blood BLOOD SPECIMEN / Unknown Lab Venipuncture / Unknown 01/04/2020 3:15 PM FLOATING LABOR GANG SUPERVISOR 01/04/2020 3:56 PM FLOATING LABOR GANG SUPERVISOR Diana Mao MD LAB - CHEMISTRY PATRICIA CASIANO [facility] [address] [place] [address] documented in this encounter Visit Diagnoses Diagnosis CKD (chronic kidney disease) stage 4, GFR 15-29 ml/min (HCC) Chronic kidney disease, Stage IV (severe) Essential hypertension documented in this encounter Care Teams School Bus Driver/Mechanic Relationship Specialty Start Date End Date Diana Mao MD [address] [place] [address] PCP - General 08/05/17 06/14/23 documented as of this encounter
--- OUTSIDE RECORDS SUMMARY | 2024-10-16 00:30 | XMS_ITS | Encounter Summary ---
Author Organization [facility] Address [address] [facility] [address] Care Team Providers Care Motel Clerk Name Role Phone Diana Mao MD Primary Care Provider [phone] Reason for Visit * Reason Onset Date Comments Pain Extremity 05/23/2020 Encounter Details Date Type Department Care Team (Late st Contact Info) Description 05/23/2020 Telephone [facility] Endocrinology, Diabetes and Metabolism [address] [place] [address] Diana Mao MD [address] [address] Pain Extremity Social History Tobacco Use Types [...] longer wanting to fill them at [facility]. documented in this encounter Plan of Treatment Upcoming Encounters Date Type Department Care Team (Late st Contact Info) Description 12/11/2024 10:30 AM HOME PLANNING CONSULTANT SALESPERSON Appointment [facility] Vascular Services [address] [facility], [address] [place] [address] Jarett Reinoso MD [address] [place], [place] [phone] Christine Benitez MD [address] [place] [phone] Keyshawn Krueger MD [address] [place], [place] [address] Armando Ferro, [address] [phone] documented as of this encounter Visit Diagnoses Not on filedocumented in this encounter Care Teams Motel Clerk Relationship Specialty Start Date End Date Diana Mao MD [address] [place] [address] PCP - General 08/05/17 06/14/23 documented as of this encounter
--- OUTSIDE RECORDS SUMMARY | 2024-10-16 00:30 | XMS_ITS | Encounter Summary ---
Author Organization [facility] Address [address] [place] [address] Care Team Providers Care Skidder Lever Operator Name Role Phone Diana Mao MD Primary Care Provider [phone] Reason for Visit * Reason Comments Refill Request Encounter Details Date Type Department Care Team (Late Contact Info) Description 10/05/2018 Refill [facility] [address] [place] [address] Diana Mao MD [address] [place] [address] Refill Request Social History Tobacco Use Types [...] (Late Contact Info) Description 12/11/2024 10:30 AM HEAVY RAIL TRAIN OPERATOR Appointment [facility] Vascular Services [address] [facility], [address] [place] [address] Jarett Reinoso MD [address] [place] [address] Christine Benitez MD [address] [place] [address] Keyshawn Krueger MD [address] [place], [place] [address] Armando Ferro, [address] [address] documented as of this encounter Visit Diagnoses Not on filedocumented in this encounter Care Teams Skidder Lever Operator Relationship Specialty Start Date End Date Diana Mao MD [address] [place] [address] PCP - General 08/05/17 06/14/23 documented as of this encounter
--- OUTSIDE RECORDS SUMMARY | 2024-10-16 00:30 | XMS_ITS | Encounter Summary ---
Author Organization [facility] Address [address] [place] [address] Care Team Providers Care Motor And Generator Assembler Name Role Phone Diana Mao MD Primary Care Provider [phone] Reason for Visit * Reason Onset Date Comments MEDICATION REFILL 07/13/2021 Encounter Details Date Type Department Care Team (Late st Contact Info) Description 07/13/2021 Refill [facility] Geriatrics [address] [place] [address], [place] [phone] Tariq Antoine, SCRAP BREAKER-[address] [phone] MEDICATION REFILL Social History Tobacco Use Types [...] st Contact Info) Description 12/11/2024 10:30 AM MUD ENGINEER Appointment [facility] Vascular Services [address] [facility], [facility] [address] [place], [place] [phone] Jarett Reinoso MD [address] [place], [place] [phone] Christine Benitez MD [address] [place] [address] Keyshawn Krueger MD [address] [place] [address] Armando Ferro, [address] [phone] documented as of this encounter Visit Diagnoses Not on filedocumented in this encounter Care Teams Motor And Generator Assembler Relationship Specialty Start Date End Date Diana Mao MD [address] [place] [address] PCP - General 08/05/17 06/14/23 documented as of this encounter
--- OUTSIDE RECORDS SUMMARY | 2024-10-16 00:30 | XMS_ITS | Encounter Summary ---
Author Organization [facility] Address [address] [facility] [place] [place] [address] Care Team Providers Care Press Hand Supervisor Name Role Phone Diana Mao MD Primary Care Provider [phone] Reason for Visit * Reason Comments Refill Request Encounter Details Date Type Department Care Team (Late Contact Info) Description 12/24/2021 Refill [facility] Obstetrics Gynecology and Women's Health [address] [facility] [address] [place] [address] Santiago Mar Che, MD [address] [facility] [address] [place] [address] Refill Request Social History Tobacco [...] (Late Contact Info) Description 12/11/2024 10:30 AM TAG MARKER Appointment [facility] Vascular Services [address] [facility], [address] [place] [address] Jarett Reinoso MD [address] [place] [address] Christine Benitez MD [address] [place] [address] Keyshawn Krueger MD [address] [place] [address] Armando Ferro, [address] [address] documented as of this encounter Visit Diagnoses Not on filedocumented in this encounter Care Teams Press Hand Supervisor Relationship Specialty Start Date End Date Diana Mao MD [address] [place] [address] PCP - General 08/05/17 06/14/23 documented as of this encounter
--- OUTSIDE RECORDS SUMMARY | 2024-10-16 00:30 | XMS_ITS | Encounter Summary ---
Author Organization [facility] Address [address] [facility] [place] [address] Care Team Providers Care Glass Tinter Name Role Phone Diana Mao MD Primary Care Provider [phone] Reason for Visit * Reason Onset Date Comments Question 08/20/2020 Rash Encounter Details Date Type Department Care Team (Late st Contact Info) Description 08/20/2020 Telephone [facility] Endocrinology, Diabetes and Metabolism [address] [place] [address], [facility] [place] [phone] Diana Mao MD [address] [place], [place] [address] [place], [place] [id number] Question (Rash) Social History Tobacco Use Types [...] you please give her a call at [phone] advise? JUNG: 07.30.2020 NOV: None documented in this encounter Plan of Treatment Upcoming Encounters Date Type Department Care Team (Late st Contact Info) Description 12/11/2024 10:30 AM VIRTUAL OFFICE ASSISTANT Appointment [facility] Vascular Services [address] [facility] [address] [place], [place] [address] Jarett Reinoso MD [address] [place], [place] [address] Christine Benitez MD [address] [place] [address] Keyshawn Krueger MD [address] [place] [address] Armando Ferro, [address] [phone] documented as of this encounter Visit Diagnoses Not on filedocumented in this encounter Care Teams Glass Tinter Relationship Specialty Start Date End Date Diana Mao MD [address] [place] [address] PCP - General 08/05/17 06/14/23 documented as of this encounter
--- OUTSIDE RECORDS SUMMARY | 2024-10-16 00:31 | XMS_ITS | Encounter Summary ---
Author Organization [facility] Address [address] [facility] [place] [address] Care Team Providers Care Blast Furnace Operator Name Role Phone Diana Mao MD Primary Care Provider [phone] Reason for Visit * Reason Onset Date Comments MEDICATION REFILL 04/21/2018 Encounter Details Date Type Department Care Team (Late Contact Info) Description 04/21/2018 Refill [facility] Endocrinology, Diabetes and Metabolism [address] [place] [address] Diana Mao MD [address] [place] [address] MEDICATION REFILL Social History Tobacco Use Types [...] (Late Contact Info) Description 12/11/2024 10:30 AM END WORKER Appointment [facility] Vascular Services [address] [facility], [address] [place] [address] Jarett Reinoso MD [address] [place], [place] [address] Christine Benitez MD [address] [place] [address] Keyshawn Krueger MD [address] [place] [address] [place] [address] [phone] documented as of this encounter Visit Diagnoses Diagnosis Essential (primary) hypertension Unspecified essential hypertension documented in this encounter Care Teams Blast Furnace Operator Relationship Specialty Start Date End Date Diana Mao MD [address] [place] [address] PCP - General 08/05/17 06/14/23 documented as of this encounter
--- OUTSIDE RECORDS SUMMARY | 2024-10-16 00:31 | XMS_ITS | Encounter Summary ---
Author Organization [facility] Address [address] [place] [address] Care Team Providers Care Sound Installation Worker Name Role Phone Diana Mao MD Primary Care Provider [phone] Encounter Details Date Type Department Care Team (Late Contact Info) Description 02/07/2018 [facility] [address] [place] [address] Diana Mao MD [address] [place] [address] Stage 2 chronic kidney disease Social History [...] (Late Contact Info) Description 12/11/2024 10:30 AM MATTRESS SPRING ENCASER Appointment [facility] Vascular Services [address] [facility] [address] [place] [address] Jarett Reinoso MD [address] [place] [address] Christine Benitez MD [address] [place] [phone] Keyshawn Krueger MD [address] [place], [place] [address] Armando Ferro, [address] [address] documented as of this encounter Visit Diagnoses Diagnosis Stage 2 chronic kidney disease documented in this encounter Care Teams Sound Installation Worker Relationship Specialty Start Date End Date Diana Mao MD [address] [place] [address] PCP - General 08/05/17 06/14/23 documented as of this encounter
--- OUTSIDE RECORDS SUMMARY | 2024-10-16 00:31 | XMS_ITS | Encounter Summary ---
Author Organization [facility] Address [address] [facility] [place] [address] Care Team Providers Care Pattern Weaver Name Role Phone Diana Mao MD Primary Care Provider [phone] Encounter Details Date Type Department Care Team (Late Contact Info) Description 08/09/2018 Orders Only 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 [...] (Late Contact Info) Description 12/11/2024 10:30 AM COMMUNITY OUTREACH WORKER Appointment [facility] Vascular Services [address] [facility] [address] [place] [address] Jarett Reinoso MD [address] [place] [address] Christine Benitez MD [address] [place] [address] Keyshawn Krueger MD [address] [place] [address] Armando Ferro, [address] [address] Scheduled Orders Name Type Priority [...] type documented in this encounter Care Teams Pattern Weaver Relationship Specialty Start Date End Date Diana Mao MD [address] [place] [address] PCP - General 08/05/17 06/14/23 documented as of this encounter
--- OUTSIDE RECORDS SUMMARY | 2024-10-16 00:31 | XMS_ITS | Encounter Summary ---
Author Organization [facility] Address [address] [facility] [place] [address] Care Team Providers Care Hand Straightener Name Role Phone Diana Mao MD Primary Care Provider [phone] Reason for Visit * Reason Comments Hypertension Encounter Details Date Type Department Care Team (Late st Contact Info) Description 02/06/2018 1:40 PM CDT Office Visit [facility] [address] [place] [address] Diana Mao MD [address] [address] Stage 2 chronic kidney disease (Primary Dx); [...] really not sure why. She has a abalone sheller who sawrecently, and she says he says [...] regular exercise was a member of the [employer] but changed insurance recently. States that she [...] Hypokalemia - Patient follows up with a abalone sheller will obtain consent frompatient for records to [...] st Contact Info) Description 12/11/2024 10:30 AM VETERINARY RADIOLOGIST Appointment [facility] Vascular Services [address] [facility], [address] [place] [address] Jarett Reinoso MD [address] [place], [place] [address] Christine Benitez MD [address] [place] [address] Keyshawn Krueger MD [address] [place] [address] [place] [address] [phone] Scheduled Orders Name Type Priority Associated Diagnoses [...] hypertension documented in this encounter Care Teams Hand Straightener Relationship Specialty Start Date End Date Diana Mao MD [address] [place] [address] PCP - General 08/05/17 06/14/23 documented as of this encounter
--- OUTSIDE RECORDS SUMMARY | 2024-10-16 00:31 | XMS_ITS | Encounter Summary ---
Author Organization [facility] Address [address] [place] [address] Care Team Providers Care Health Program Manager Name Role Phone Diana Mao MD Primary Care Provider [phone] Reason for Referral * Other (Routine) - Closed Specialty Diagnoses / Procedures Referred By Abena t Referred To Contact Diagnoses Family circumstance Diana Mao MD [address] [place] [address] Reji Murillo LMSW [address], [address] [place] [address] Referral ID Status Reason Start Date Expiration Date V isits Requested Visits Authorized [id number] Closed Specialty Services Required 05/06/2018 11/02/2018 1 1 Reason for Visit * Reason Comments Annual Follow-Up Encounter Details Date Type Department Care Team (Late st Contact Info) Description 05/05/2018 1:40 PM CDT Office Visit [facility] [address] [place] [address] Diana Mao MD [address] [place] [address] Stage 2 chronic kidney disease (Primary Dx); [...] but no attending AA. [facility]. She has a strained relationship with her tt-zwlliwcy-cx-law, but has her granddaughters 13 and 17 [...] to referral for CBT SW consulted for neonatal social worker referral for the son. Reassurance given about [...] in 90 day intervals. Patientreports she uses [facility] mail-order pharmacy. Patient is additionally concerned [...] no therapies for this and sees a aircraft ordnance technician once/year. Urinary incontinence Assessment: Absence of urinary [...] st Contact Info) Description 12/11/2024 10:30 AM LIME BOILER Appointment [facility] Vascular Services [address] [facility] [address] [place] [address] Jarett Reinoso MD [address] [place], [place] [id number] Christine Benitez MD [address] [place] [address] Keyshawn Krueger MD [address] [place] [address] Armando Ferro, [address] [phone] Scheduled Referrals Name Type Priority Associated Diagnoses Orde r Schedule AMB REFERRAL TO SOCIAL WORK Outpatient Referral Routine Family circumstance Expected: 05/06/2018, Expires: 05/06/2019 documented as of this encounter Visit Diagnoses Diagnosis Stage 2 chronic kidney disease- Primary Essential (primary) hypertension Unspecified essential hypertension Family circumstance Unspecified family circumstance documented in this encounter Care Teams Health Program Manager Relationship Specialty Start Date End Date Diana Mao MD [address] [place] [address] PCP - General 08/05/17 06/14/23 documented as of this encounter
--- OUTSIDE RECORDS SUMMARY | 2024-10-16 00:31 | XMS_ITS | Encounter Summary ---
Author Organization [facility] Address [address] [facility] [address] Care Team Providers Care Payment Analyst Name Role Phone Diana Mao MD Primary Care Provider [phone] Reason for Visit * Reason Onset Date Comments Position Clerk Other 05/08/2018 Therapy and Housing resources Encounter Details Date Type Department Care Team (Late st Contact Info) Description 05/08/2018 Telephone [facility] [address], [address] [place] [address] Reji Murillo LMSW [address] [place] [address] Position Clerk Other (Therapy and Housing resources) Social History [...] letter and included mental health resources for [place]. SW also included website for affordable housing for pt's son. SW then contacted pt via phone and explained resources being sent. No further SW issues at this time. documented in this encounter Plan of Treatment Upcoming Encounters Date Type Department Care Team (Late st Contact Info) Description 12/11/2024 10:30 AM COUNTERSINKER BALANCE SCREW HOLE Appointment [facility] Vascular Services [address] [facility], [address] [place] [address] Jarett Reinoso MD [address] [place] [address] Christine Benitez MD [address] [place] [address] Keyshawn Krueger MD [address] [place] [address] Armando Ferro, [address] [address] documented as of this encounter Visit Diagnoses Not on filedocumented in this encounter Care Teams Payment Analyst Relationship Specialty Start Date End Date Diana Mao MD [address] [place] [address] PCP - General 08/05/17 06/14/23 documented as of this encounter
--- OUTSIDE RECORDS SUMMARY | 2024-10-16 00:31 | XMS_ITS | Encounter Summary ---
Author Organization [facility] Health Address [address] [place] [address] Care Team Providers Care Booster Pump Operator Name Role Phone Diana Mao MD Primary Care Provider [phone] Encounter Details Date Type Department Care Team (Late Contact Info) Description 02/06/2018 [facility] [address] [place] [address] Diana Mao MD [address] [place] [address] Stage 2 chronic kidney disease Social History [...] (Late Contact Info) Description 12/11/2024 10:30 AM CIVIL ENGINEERING DRAFTSPERSON Appointment [facility] Health Vascular Services [address] [facility] [address] [place] [address] Jarett Reinoso MD [address] [place] [address] Christine Benitez MD [address] [place] [phone] Keyshawn Krueger MD [address] [place], [place] [address] Armando Ferro, [address] [address] documented as of this encounter Visit Diagnoses Diagnosis Stage 2 chronic kidney disease documented in this encounter Care Teams Booster Pump Operator Relationship Specialty Start Date End Date Diana Mao MD [address] [place] [address] PCP - General 08/05/17 06/14/23 documented as of this encounter
--- OUTSIDE RECORDS SUMMARY | 2024-10-16 00:31 | XMS_ITS | Encounter Summary ---
Author Organization [facility] Health Address [address] [place] [address] Care Team Providers Care Shipping And Receiving Supervisor Name Role Phone Diana Mao MD Primary Care Provider [phone] Encounter Details Date Type Department Care Team (Latest Contact Info) Description 06/28/2014 Hospital Outpatient Visit Historic [facility] OUTPATIENT SERVICES [address] [place] [phone] Diana Mao MD [address] [place] [address] Discharge Disposition: Home or Self Care Social [...] st Contact Info) Description 12/11/2024 10:30 AM SPOUT WORKER Appointment [facility] Health Vascular Services [address] [facility], [facility] [address] [place] [address] Jarett Reinoso MD [address] [place], [place] [address] Christine Benitez MD [address] [place] [phone] Keyshawn Krueger MD [address] [place] [address] Armando Ferro, [address] [address] documented as of this encounter Visit Diagnoses Not on filedocumented in this encounter Care Teams Shipping And Receiving Supervisor Relationship Specialty Start Date End Date Diana Mao MD [address] [place] [address] PCP - General 08/05/17 06/14/23 documented as of this encounter
--- OUTSIDE RECORDS SUMMARY | 2024-10-16 00:31 | XMS_ITS | Encounter Summary ---
Author Organization [facility] Address [address] [facility] [place] [address] Care Team Providers Care Varsity Baseball Coach Name Role Phone Diana Mao MD Primary Care Provider [phone] Reason for Visit * Reason Onset Date Comments Order 08/22/2018 Encounter Details Date Type Department Care Team (Late st Contact Info) Description 08/22/2018 Telephone [facility] [address] [place] [address] Diana Mao MD [address] [address] Order Social History Tobacco Use Types Packs/Day [...] Staff will have to fax orders to [facility] in [place]. OP Orders Main Lab fax Patient return call back [phone] documented in this encounter Plan of Treatment Upcoming Encounters Date Type Department Care Team (Late st Contact Info) Description 12/11/2024 10:30 AM PROGRESSIVE CARE UNIT REGISTERED NURSE Appointment [facility] Vascular Services [address] [facility], [facility] [address] [place] [address] Jarett Reinoso MD [address] [place], [place] [address] Christine Benitez MD [address] [place] [address] Keyshawn Krueger MD [address] [place] [address] Armando Ferro, [address] [address] documented as of this encounter Visit Diagnoses Not on filedocumented in this encounter Care Teams Varsity Baseball Coach Relationship Specialty Start Date End Date Diana Mao MD [address] [place] [address] PCP - General 08/05/17 06/14/23 documented as of this encounter
--- OUTSIDE RECORDS SUMMARY | 2024-10-16 00:31 | XMS_ITS | Encounter Summary ---
Author Organization [facility] Address [address] [facility] [place] [address] Care Team Providers Care Php Lamp Developer Name Role Phone Diana Mao MD Primary Care Provider [phone] Reason for Visit * Reason Onset Date Comments Order 08/09/2018 Encounter Details Date Type Department Care Team (Late st Contact Info) Description 08/09/2018 Telephone [facility] [address] [place] [address] Diana Mao MD [address] [facility] [address] [place] [address] Order Social History Tobacco Use Types Packs/Day [...] orders for the Nurse/Staff to fax to [facility] documented in this encounter Plan of Treatment Upcoming Encounters Date Type Department Care Team (Late st Contact Info) Description 12/11/2024 10:30 AM ELECTRONIC HEALTH RECORDS SPECIALIST Appointment [facility] Vascular Services [address] [facility], [address] [place] [address] Jarett Reinoso MD [address] [place] [address] Christine Benitez MD [address] [place] [address] Keyshawn Krueger MD [address] [place] [address] Armando Ferro, [address] [address] documented as of this encounter Visit Diagnoses Not on filedocumented in this encounter Care Teams Php Lamp Developer Relationship Specialty Start Date End Date Diana Mao MD [address] [place] [address] PCP - General 08/05/17 06/14/23 documented as of this encounter
--- OUTSIDE RECORDS SUMMARY | 2024-10-16 00:31 | XMS_ITS | Encounter Summary ---
Author Organization [facility] Address [address] [place] [address] Care Team Providers Care Certified Composites Technician Name Role Phone Diana Mao MD Primary Care Provider [phone] Reason for Visit * Reason Onset Date Comments MEDICATION REFILL 07/20/2018 Encounter Details Date Type Department Care Team ([facility] Contact Info) Description 07/20/2018 Refill [facility] Endocrinology, Diabetes and Metabolism [address] [place] [address] Diana Mao MD [address] [place] [address] MEDICATION REFILL Social History Tobacco Use Types [...] (Late Contact Info) Description 12/11/2024 10:30 AM OUTREACH TEAM MEMBER Appointment [facility] Vascular Services [address] [facility], [facility] [address] [place] [address] Jarett Reinoso MD [address] [place], [place] [address] Christine Benitez MD [address] [place] [address] Keyshawn Krueger MD [address] [place], [place] [address] [place] [address] [phone] documented as of this encounter Visit Diagnoses Diagnosis Essential (primary) hypertension Unspecified essential hypertension documented in this encounter Care Teams Certified Composites Technician Relationship Specialty Start Date End Date Diana Mao MD [address] [place] [address] PCP - General 08/05/17 06/14/23 documented as of this encounter
--- OUTSIDE RECORDS SUMMARY | 2024-10-16 00:31 | XMS_ITS | Encounter Summary ---
Author Organization [facility] Health Address [address] [place] [address] Care Team Providers Care Business Management Manager Name Role Phone Diana Mao MD Primary Care Provider [phone] Encounter Details Date Type Department Care Team (Latest Contact Info) Description 06/28/2014 Hospital Outpatient Visit Historic [facility] OUTPATIENT SERVICES [address] [place] [address] Diana Mao MD [address] [place] [address] Discharge Disposition: Home or Self Care Social [...] st Contact Info) Description 12/11/2024 10:30 AM DIAL BRUSHER Appointment [facility] Health Vascular Services [address] [facility], [facility] [address] [place] [address] Jarett Reinoso MD [address] [place], [place] [address] Christine Benitez MD [address] [place] [address] Keyshawn Krueger MD [address] [place] [address] [place] [address] Armando Ferro, [address] [place] [address] documented as of this encounter Procedures Procedure [...] result was submitted in synapse for Dr. Diaan Mao by Dominique Pacheco on 06/28/2014 at [...] loss documented in this encounter Care Teams Business Management Manager Relationship Specialty Start Date End Date Diana Mao MD [address] [place] [address] PCP - General 08/05/17 06/14/23 documented as of this encounter
--- OUTSIDE RECORDS SUMMARY | 2024-10-16 00:31 | XMS_ITS | Encounter Summary ---
Author Organization [facility] Address [address] [facility] [place] [place] [address] Care Team Providers Care Grinder Needle Tip Name Role Phone Diana Mao MD Primary Care Provider [phone] Reason for Visit * Reason Onset Date Comments MEDICATION REFILL 03/06/2018 Encounter Details Date Type Department Care Team (Late Contact Info) Description 03/06/2018 Refill [facility]ology, Diabetes and Metabolism [address] [place] [address] Ced Potter MEDICATION REFILL Social History Tobacco [...] (Late Contact Info) Description 12/11/2024 10:30 AM COSTUME DESIGNER Appointment [facility] Vascular Services [address] [facility], [address] [place] [address] Jarett Reinoso MD [address] [place], [place] [address] Christine Benitez MD [address] [place] [address] Keyshawn Krueger MD [address] [place] [address] [place] [address] [address] documented as of this encounter Visit Diagnoses Diagnosis Essential (primary) hypertension Unspecified essential hypertension documented in this encounter Care Teams Grinder Needle Tip Relationship Specialty Start Date End Date Diana Mao MD [address] [place] [address] PCP - General 08/05/17 06/14/23 documented as of this encounter
--- OUTSIDE RECORDS SUMMARY | 2024-10-16 00:33 | XMS_ITS | Encounter Summary ---
Author Organization [facility] Address [address] [place] [address] Phone Care Team Providers Care Christian Science Reader Name Role Phone Diana Mao MD Primary Care Provider Unavail able Encounter Details Date Type Department Care Team (Late st Contact Info) Description 11/20/2019 Telephone [facility] Nephrology and Hypertension [facility], [address] [address] Leticia Reyes MD [address] [facility], [address] [place] [address] Social History Tobacco Use Types Packs/Day Years [...] 2 MEDS REFILLS TO [employer] MAIL ORDER [phone]. THIS IS NEW INSURANCE FOR HER documented in this encounter Plan of Treatment Not on file documented as of this encounter Visit Diagnoses Not on filedocumented in this encounter Care Teams Christian Science Reader Relationship Specialty Start Date End Date Diana Mao MD PCP - General Geriatric Medicine 02/20/19 documented as of this encounter
--- OUTSIDE RECORDS SUMMARY | 2024-10-16 00:33 | XMS_ITS | Encounter Summary ---
Author Organization [facility] Address [address] [place] [address] Phone Care Team Providers Care Desktop Support Consultant Name Role Phone Diana Mao MD Primary Care Provider Unavail able Encounter Details Date Type Department Care Team (Late st Contact Info) Description 12/30/2020 Telephone [facility] Nephrology and Hypertension [address] [facility], [address] [place] [address] Jackson Mari MA Social History Tobacco Use [...] to have pt CB w/ correct # [facility] * Telephone Encounter - Leticia Reyes MD - 12/30/2020 8:34 PM CST The below phone number is not correct -- can you verify the phone number with patient? Thanks. * Telephone Encounter - Jackson Mari MA - 12/30/2020 11:13 AM CST Pt called and needs a refill on her hydrocholizide. She has a new mail order phamacy, [facility] [phone], PRESS OPTION 2 THE NUMBER ABOVE WAS GIVE BY PT., THE NUMBER OF PHARMACY ON PT S CHART IS DIFFERENT documented in this encounter Plan of Treatment Not on file documented as of this encounter Visit Diagnoses Not on filedocumented in this encounter Care Teams Desktop Support Consultant Relationship Specialty Start Date End Date Diana Mao MD PCP - General Geriatric Medicine 02/20/19 documented as of this encounter
--- OUTSIDE RECORDS SUMMARY | 2024-10-16 00:33 | XMS_ITS | Encounter Summary ---
Author Organization [facility] Address [address] [place] [address] Phone Care Team Providers Care Home Lending Officer Name Role Phone Diana Mao MD Primary Care Provider Unavail able Encounter Details Date Type Department Care Team (Late st Contact Info) Description 12/11/2020 11:00 AM SAFETY COORDINATOR Office Visit [facility] Nephrology and Hypertension [address] [place] [address], [address] [place] [address] Leticia Reyes MD [address] [facility], [address] [place] [address] Stage 3b chronic kidney disease (CMS-HCC); Hypertensive [...] Comments Blood Pressure 134/70 12/11/2020 11:17 AM SAFETY COORDINATOR Pulse - - Temperature 36.2 ??C (97.1 ??F) 12/11/2020 11:[address] Respiratory Rate 18 12/11/2020 11:17 AM SAFETY COORDINATOR Oxygen Saturation - - Inhaled Oxygen Concentration - - Weight 82.6 kg (182 lb) 12/11/2020 11:17 AM SAFETY COORDINATOR Height 170.2 cm (5' 7 ) 12/11/2020 11:17 AM SAFETY COORDINATOR Body Mass Index 28.51 12/11/2020 11:17 AM SAFETY COORDINATOR documented in this encounter Progress Notes * [...] ASSESSMENT: 1. Stage 3b chronic kidney disease ([facility]-HCC) 2. Hypertensive renal disease 3. Other proteinuria [...] proteinuria documented in this encounter Care Teams Home Lending Officer Relationship Specialty Start Date End Date Diana Mao MD PCP - General Geriatric Medicine 02/20/19 documented as of this encounter
--- OUTSIDE RECORDS SUMMARY | 2024-10-16 00:33 | XMS_ITS | Encounter Summary ---
Author Organization [facility] Address [address] [place] [address] Phone Care Team Providers Care Automatic Fabric Cutter Name Role Phone Diana Mao MD Primary Care Provider Unavail able Encounter Details Date Type Department Care Team (Late st Contact Info) Description 09/29/2020 Telephone [facility] Nephrology and Hypertension [address] [facility], [address] [place] [address] Patricia Lorenzo MA Social History Tobacco Use [...] like to get labs done tomorrow at [facility]. Please complete form and I can fax it. She asks me to let her know if it is blood and urine or just blood. documented in this encounter Plan of Treatment Not on file documented as of this encounter Visit Diagnoses Not on filedocumented in this encounter Care Teams Automatic Fabric Cutter Relationship Specialty Start Date End Date Diana Mao MD PCP - General Geriatric Medicine 02/20/19 documented as of this encounter
--- OUTSIDE RECORDS SUMMARY | 2024-10-16 00:33 | XMS_ITS | Encounter Summary ---
Author Organization [facility] Address [address] [place] [address] Phone Care Team Providers Care Bond Runner Name Role Phone Diana Mao MD Primary Care Provider Unavail able Encounter Details Date Type Department Care Team (Late st Contact Info) Description 11/14/2019 Telephone [facility] Nephrology and Hypertension [address] [facility], [address] [place] [address] Leticia Reyes MD [address] [facility], [address] [facility] [place] [address] Social History Tobacco Use Types Packs/Day Years [...] new RX sent to: [facility] fax#[phone] Nifedipiner 90mg Labetalol 200mg Tks MILDRED documented in this encounter Plan of Treatment Not on file documented as of this encounter Visit Diagnoses Not on filedocumented in this encounter Care Teams Bond Runner Relationship Specialty Start Date End Date Diana Mao MD PCP - General Geriatric Medicine 02/20/19 documented as of this encounter
--- OUTSIDE RECORDS SUMMARY | 2024-10-16 00:33 | XMS_ITS | Encounter Summary ---
Author Organization [facility] Address [address] [place] [address] Phone Care Team Providers Care Credit Administration Officer Name Role Phone Diana Mao MD Primary Care Provider Unavail able Encounter Details Date Type Department Care Team (Late st Contact Info) Description 07/22/2022 [facility] Nephrology and Hypertension [address] [facility], [address] [facility] [place] [address] Mary Lorenzo RN Social History Tobacco Use [...] on filedocumented in this encounter Care Teams Credit Administration Officer Relationship Specialty Start Date End Date Diana Mao MD PCP - General Geriatric Medicine 02/20/19 documented as of this encounter
--- OUTSIDE RECORDS SUMMARY | 2024-10-16 00:33 | XMS_ITS | Encounter Summary ---
Author Organization [facility] Address [address] [place] [address] Phone Care Team Providers Care Director Network Development Name Role Phone Diana Mao MD Primary Care Provider Unavail able Encounter Details Date Type Department Care Team (Late st Contact Info) Description 07/01/2022 Telephone [facility] Nephrology and Hypertension [facility], [address] [place] [address] Leticia Reyes MD [address] [facility], [address] [place] [address] Social History Tobacco Use Types Packs/Day Years [...] - 07/06/2022 10:10 AM CDT Spoke to [facility] scheduling re: renal biopsy. Order faxed. Juan Pablo scheduling to contact pt after rad review * Telephone Encounter - Leticia Reyes MD - 07/06/2022 9:32 AM CDT Can you arrange for patient to get ultrasound guided renal biopsy at [place] - reason: worsening CKD associated with nephrotic [...] filedocumented in this encounter Care Teams Director Network Development Relationship Specialty Start Date End Date Diana Mao MD PCP - General Geriatric Medicine 02/20/19 documented as of this encounter
--- OUTSIDE RECORDS SUMMARY | 2024-10-16 00:33 | XMS_ITS | Encounter Summary ---
Author Organization [facility] Address [address] [place] [address] Phone Care Team Providers Care Delicatessen Store Manager Name Role Phone Diana Mao MD Primary Care Provider Unavail able Encounter Details Date Type Department Care Team (Late st Contact Info) Description 08/17/2021 Telephone [facility] Nephrology and Hypertension [address] [facility], [address] [place] [address] Leticia Reyes MD [address] [facility], SU[address] [facility] [place] [address] Social History Tobacco Use Types Packs/Day Years [...] them Thank you * Telephone Encounter - Luisana Dan - 08/18/2021 9:04 AM CDT Fax lab req to [facility] w/ - to let her know Stated [...] lab req for this and fax to [facility]. Once we fax it, please call patient to let her know the order is at the lab. Thanks. documented in this encounter Plan of Treatment Not on file documented as of this encounter Visit Diagnoses Not on filedocumented in this encounter Care Teams Delicatessen Store Manager Relationship Specialty Start Date End Date Diana Mao MD PCP - General Geriatric Medicine 02/20/19 documented as of this encounter
--- OUTSIDE RECORDS SUMMARY | 2024-10-16 00:33 | XMS_ITS | Encounter Summary ---
Author Organization [facility] Address [address] [place] [address] Phone Care Team Providers Care Account General Manager Name Role Phone Diana Mao MD Primary Care Provider Unavail able Encounter Details Date Type Department Care Team (Late st Contact Info) Description 10/07/[address] [facility] Nephrology and Hypertension [address] [facility], [address] [place] [address] Patricia Lorenzo MA Social History Tobacco Use [...] it with Mary (here with me in [place]). Thanks. * Telephone Encounter - Patricia Lorenzo MA - 10/07/2020 2:00 PM CST Pt already did labs but had to cancel 10-08-2020 appt. She will come 12-11-2020. Please advise if youwant labs for that 12-11-2020 visit. documented in this encounter Plan of Treatment Not on file documented as of this encounter Visit Diagnoses Not on filedocumented in this encounter Care Teams Account General Manager Relationship Specialty Start Date End Date Diana Mao MD PCP - General Geriatric Medicine 02/20/19 documented as of this encounter
--- OUTSIDE RECORDS SUMMARY | 2024-10-16 00:33 | XMS_ITS | Encounter Summary ---
Author Organization [facility] Address [address] [place] [address] Phone Care Team Providers Care Veterans Service Officer Name Role Phone Diana Mao MD Primary Care Provider Unavail able Encounter Details Date Type Department Care Team (Late st Contact Info) Description 03/18/2020 Telephone [facility] Nephrology and Hypertension [address] [facility], [address] [place] [address] Jackson Mari MA Social History Tobacco Use [...] on filedocumented in this encounter Care Teams Veterans Service Officer Relationship Specialty Start Date End Date Diana Mao MD PCP - General Geriatric Medicine 02/20/19 documented as of this encounter
--- OUTSIDE RECORDS SUMMARY | 2024-10-16 00:33 | XMS_ITS | Encounter Summary ---
Author Organization [facility] Address [address] [place] [address] Phone Care Team Providers Care Outsole Molder Name Role Phone Diana Mao MD Primary Care Provider Unavail able Encounter Details Date Type Department Care Team (Late st Contact Info) Description 07/01/2022 Orders Only [facility] Nephrology and Hypertension [facility], [address] [place] [address] Leticia Reyes MD [facility], [address] [place] [address] Social History Tobacco Use Types Packs/Day Years [...] on filedocumented in this encounter Care Teams Outsole Molder Relationship Specialty Start Date End Date Diana Mao MD PCP - General Geriatric Medicine 02/20/19 documented as of this encounter
--- OUTSIDE RECORDS SUMMARY | 2024-10-16 00:33 | XMS_ITS | Encounter Summary ---
Author Organization [facility] Address [address] [place] [address] Phone Care Team Providers Care Baker Pie Name Role Phone Diana Mao MD Primary Care Provider Unavail able Reason for Referral * (Routine) - Closed Specialty Diagnoses / Procedures Referred By Abena torrez Referred To Contact Diagnoses Chronic kidney disease, Stage V (CMS-HCC) Hypertensive renal disease Other proteinuria Procedures Ultrasound renal complete Leticia Reyes MD [address] [facility], [address] [place] [address] Referral ID Status Reason Start Date Expiration Date Visits Re quested Visits Authorized [id number] Closed 06/30/2022 12/27/2022 1 1 Encounter Details Date Type Department Care Team (Late st Contact Info) Description 06/30/2022 10:45 AM CDT Office Visit [facility] Nephrology and Hypertension [address] [place] [address], [address] [place] [address] Leticia Reyes MD [address] [facility], [address] [place], [place] [id number] Chronic kidney disease, Stage V (CMS-HCC); Hypertensive [...] Imaging Routine Chronic kidney disease, Stage V ([facility]) Hypertensive renal disease Other proteinuria Expected: 07/30/2022 [...] Diagnoses Diagnosis Chronic kidney disease, Stage V ([facility]) Chronic kidney disease, Stage V Hypertensive renal disease Other proteinuria documented in this encounter Care Teams Baker Pie Relationship Specialty Start Date End Date Diana Mao MD PCP - General Geriatric Medicine 02/20/19 documented as of this encounter
--- OUTSIDE RECORDS SUMMARY | 2024-10-16 00:33 | XMS_ITS | Encounter Summary ---
Author Organization [facility] re[facility]aga Address [address] [place] [address] Phone Care Team Providers Care Director Process Engineering Name Role Phone Diana Mao MD Primary Care Provider Unavail able Encounter Details Date Type Department Care Team (Late st Contact Info) Description 08/20/2021 Telephone [facility] Nephrology and Hypertension [address] [facility], [address] [place] [address] Mary Lorenzo RN Social History Tobacco Use [...] filedocumented in this encounter Care Teams Director Process Engineering Relationship Specialty Start Date End Date Diana Mao MD PCP - General Geriatric Medicine 02/20/19 documented as of this encounter
--- OUTSIDE RECORDS SUMMARY | 2024-10-16 00:33 | XMS_ITS | Encounter Summary ---
Author Organization [facility] Address [address] [place] [address] Phone Care Team Providers Care Agricultural Production Engineer Name Role Phone Diana Mao MD Primary Care Provider Unavail able Encounter Details Date Type Department Care Team (Late st Contact Info) Description 10/21/2022 Telephone [facility] Nephrology and Hypertension [facility]4 [facility], [address] [place] [address] Leticia Reyes MD [address] [facility], [address] [facility], [id number] [place] [address] Social History Tobacco Use Types Packs/Day Years [...] CST Patient scheduled for office visit at [facility] on Nov 02 2022. Patient currently on hemodialysis and see her at her outpatient dialysis unit. Please her daughters(I think patient is in a prison) that she does not need to come to this appointment since I see her at the dialysis center. Thanks. documented in this encounter Plan of Treatment Not on file documented as of this encounter Visit Diagnoses Not on filedocumented in this encounter Care Teams Agricultural Production Engineer Relationship Specialty Start Date End Date Diana Mao MD PCP - General Geriatric Medicine 02/20/19 documented as of this encounter
--- OUTSIDE RECORDS SUMMARY | 2024-10-16 00:33 | XMS_ITS | Encounter Summary ---
Author Organization [facility]o Address [address] [place] [address] Phone Care Team Providers Care Bench Worker Hollow Handle Name Role Phone Diana Mao MD Primary Care Provider Unavail able Encounter Details Date Type Department Care Team (Late st Contact Info) Description 03/22/2022 Telephone [facility] Nephrology and Hypertension [address] [facility], [address] [place] [address] Mary Lorenzo RN Social History Tobacco Use [...] on filedocumented in this encounter Care Teams Bench Worker Hollow Handle Relationship Specialty Start Date End Date Diana Mao MD PCP - General Geriatric Medicine 02/20/19 documented as of this encounter
--- OUTSIDE RECORDS SUMMARY | 2024-10-16 00:33 | XMS_ITS | Encounter Summary ---
Author Organization [facility] utions Address [address] [place] [address] Phone Care Team Providers Care Aerospace Manager Name Role Phone Diana Mao MD Primary Care Provider Unavail able Encounter Details Date Type Department Care Team (Late st Contact Info) Description 07/01/2022 Telephone [facility] Nephrology and Hypert[facility], [address] [place] [address] Leticia Reyes MD [address] [facility], SU[address] [facility] [place] [address] Social History Tobacco Use Types Packs/Day Years [...] insurance Asking to have scripts [facility] [place] - in chart- Needs Rx: Nifedipine, HTCZ and Labetalol Has only 7 days left Thank you documented in this encounter Plan of Treatment Not on file documented as of this encounter Visit Diagnoses Not on filedocumented in this encounter Care Teams Aerospace Manager Relationship Specialty Start Date End Date Diana Mao MD PCP - General Geriatric Medicine 02/20/19 documented as of this encounter
--- OUTSIDE RECORDS SUMMARY | 2024-10-16 00:33 | XMS_ITS | Encounter Summary ---
Author Organization [facility]o Address [address] [place] [address] Phone Care Team Providers Care Central Services Tech Name Role Phone Diana Mao MD Primary Care Provider Unavail able Encounter Details Date Type Department Care Team (Late st Contact Info) Description 12/04/2020 Telephone [facility] Nephrology and Hypertension [address] [facility], [address] [place] [address] Patricia Lorenzo MA Social History Tobacco Use [...] had labs done one week ago at [place] and asks if they will be sufficient for her 12-11-2020 appt. documented in this encounter Plan of Treatment Not on file documented as of this encounter Visit Diagnoses Not on filedocumented in this encounter Care Teams Central Services Tech Relationship Specialty Start Date End Date Diana Mao MD PCP - General Geriatric Medicine 02/20/19 documented as of this encounter
--- OUTSIDE RECORDS SUMMARY | 2024-10-16 00:33 | XMS_ITS | Clinical Summary ---
Author Organization [facility] re[facility]aga Address [address] [place] [address] Phone Care Team Providers Care Qa Reviewer Name Role Phone Diana Mao MD Primary [...] Highest Risk Completed 09/08/2018, 08/05/2017 Care Teams Qa Reviewer Relationship Specialty Start Date End Date Diana Mao MD PCP - General Geriatric Medicine 02/20/19
--- OUTSIDE RECORDS SUMMARY | 2024-10-16 00:33 | XMS_ITS | Encounter Summary ---
Author Organization [facility]ions Address [address] [place] [address] Phone Care Team Providers Care Barrel Ribs Solderer Name Role Phone Diana Mao MD Primary Care Provider Unavail able Encounter Details Date Type Department Care Team (Late st Contact Info) Description 04/06/[address] [facility] Nephrology and Hypertension [address] [facility], [address] [place] [address] Mary Lorenzo RN Social History Tobacco Use [...] Miscellaneous Notes * Telephone Encounter - Mary Lornezo RN - 04/07/2022 9:03 AM CDT LMOR informing pt of [facility]SK's response * Telephone Encounter - Leticia Reyes MD - 04/06/2022 9:45 PM CDT Would recommend Dr. Ordonez or Dr. Holden at [facility] but agree that her [...] on filedocumented in this encounter Care Teams Barrel Ribs Solderer Relationship Specialty Start Date End Date Diana Mao MD PCP - General Geriatric Medicine 02/20/19 documented as of this encounter
--- OUTSIDE RECORDS SUMMARY | 2024-10-16 00:33 | XMS_ITS | Encounter Summary ---
Author Organization [facility] utitheo Address [address] [place] [address] Phone Care Team Providers Care Dental Instructor Name Role Phone Diana Mao MD Primary Care Provider Unavail able Reason for Visit * Reason Comments Med Refill Encounter Details Date Type Department Care Team (Late st Contact Info) Description 01/27/2022 Refill [facility] Nephrology and Hypertension [facility], [address] [address] Leticia Reyes MD [address] [facility], SUITE [facility] [place] [address] Social History Tobacco Use Types Packs/Day Years [...] on filedocumented in this encounter Care Teams Dental Instructor Relationship Specialty Start Date End Date Diana Mao MD PCP - General Geriatric Medicine 02/20/19 documented as of this encounter
--- OUTSIDE RECORDS SUMMARY | 2024-10-16 00:33 | XMS_ITS | Encounter Summary ---
Author Organization [facility] reynaga Address [address] [place] [address] Phone Care Team Providers Care Prosthetic Dentist Name Role Phone Diana Mao MD Primary Care Provider Unavail able Reason for Referral * Imaging (Routine) - Closed Specialty Diagnoses / Procedures Referred By Abena torrez Referred To Contact Diagnoses Chronic kidney disease, Stage V (CMS-HCC) Other proteinuria Procedures Ultrasound guided kidney biopsy Leticia Reyes MD [facility]4 [facility], [address] [address] Referral ID Status Reason Start Date Expiration Date Visits Re quested Visits Authorized [id number] Closed 07/06/2022 01/02/2023 1 1 Encounter Details Date Type Department Care Team (Late st Contact Info) Description 07/06/2022 Orders Only [facility] Nephrology and Hypertension [facility]4 [facility], [address] [place] [address] Leticia Reyes MD [address] [place] [address], [address] [place] [id number] Chronic kidney disease, Stage V (CMS-HCC) (Primary [...] Imaging Routine Chronic kidney disease, Stage V ([facility]) Other proteinuria Expected: 07/06/2022, Expires: 07/06/2023 documented as of this encounter Visit Diagnoses Diagnosis Chronic kidney disease, Stage V ([facility])- Primary Chronic kidney disease, Stage V Other proteinuria documented in this encounter Care Teams Prosthetic Dentist Relationship Specialty Start Date End Date Diana Mao MD PCP - General Geriatric Medicine 02/20/19 documented as of this encounter
--- OUTSIDE RECORDS SUMMARY | 2024-10-16 00:33 | XMS_ITS | Encounter Summary ---
Author Organization [facility] Address [address] [place] [address] Phone Care Team Providers Care Beautician Apprentice Name Role Phone Diana Mao MD Primary Care Provider Unavail able Reason for Visit * Reason Comments Med Refill Encounter Details Date Type Department Care Team (Late st Contact Info) Description 02/01/2021 Refill [facility] Nephrology and Hypertension [address] [place] [address], [address] [place] [address] Leticia Reyes MD [address] [facility], [address] [place] [address] Social History Tobacco Use Types Packs/Day Years [...] on filedocumented in this encounter Care Teams Beautician Apprentice Relationship Specialty Start Date End Date Diana Mao MD PCP - General Geriatric Medicine 02/20/19 documented as of this encounter
--- OUTSIDE RECORDS SUMMARY | 2024-10-16 00:33 | XMS_ITS | Encounter Summary ---
Author Organization [facility]ions Address [address] [place] [address] Phone Care Team Providers Care Viscose Department Worker Name Role Phone Diana Mao MD Primary Care Provider Unavail able Encounter Details Date Type Department Care Team (Late st Contact Info) Description 08/08/2019 3:30 PM CDT Office Visit [facility] Nephrology and Hypertension [address] [place] [address], [address] [place] [address] Leticia Reyes MD [address] [facility], [address] [place] [address] Chronic kidney disease stage 3 (CMS-HCC); Hypertensive [...] Hypokalemia documented in this encounter Care Teams Viscose Department Worker Relationship Specialty Start Date End Date Diana Mao MD PCP - General Geriatric Medicine 02/20/19 documented as of this encounter
--- OUTSIDE RECORDS SUMMARY | 2024-10-16 00:33 | XMS_ITS | Encounter Summary ---
Author Organization [facility] Address [address] [place] [address] Phone Care Team Providers Care Sustainability Specialist Name Role Phone Diana Mao MD Primary Care Provider Unavail able Encounter Details Date Type Department Care Team (Late st Contact Info) Description 04/09/2021 11:00 AM CDT Office Visit [facility] Nephrology and Hypertension [address] [place] [address], [address] [place] [address] Leticia Reyes MD [address] [facility], [address] [place] [address] Stage 3b chronic kidney disease (CMS-HCC); Hypertensive [...] LAB BLOOD ORDERAB LES Performing Organization Address [facility] Co de Phone Number EXTERNAL LAB (NON-INTERFACED) * Vitamin D, 1, 25-Dihydroxy (04/02/2021) 25-Hydroxyvitam in D2+25-Hydroxyvi tamin D3, Serum/Plasma 32.9 ng/mL EXTERNAL LAB (NON-INTERFACE D) Historical Provider MD LAB BLOOD ORDERAB LES Performing Organization Address City/[facility]/ZIP Co de Phone Number EXTERNAL LAB (NON-INTERFACED) * Total Protein w/ Creatinine, Urine, Random (04/02/2021) Protein/Creati nine, Urine 4,390 mg/g creatinine EXTERNAL LAB (NON-INTERFAC ED) Historical Provider MD LAB URINE ORDERAB LES Performing Organization Address [facility] Co de Phone Number EXTERNAL LAB (NON-INTERFACED) [...] Diagnoses Diagnosis Stage 3b chronic kidney disease ([facility]-HCC) Hypertensive renal disease Other proteinuria documented in this encounter Care Teams Sustainability Specialist Relationship Specialty Start Date End Date Diana Mao MD PCP - General Geriatric Medicine 02/20/19 documented as of this encounter
--- OUTSIDE RECORDS SUMMARY | 2024-10-16 00:33 | XMS_ITS | Encounter Summary ---
Author Organization [facility]aga Address [address] [place] [address] Phone Care Team Providers Care Keyboard Specialist Name Role Phone Diana Mao MD Primary Care Provider Unavail able Encounter Details Date Type Department Care Team (Late st Contact Info) Description 11/14/2019 Telephone [facility] Nephrology and Hypertension [address] [facility], [address] [address] Leticia Reyes MD [address] [facility], [address] [place] [address] Social History Tobacco Use Types Packs/Day Years [...] on filedocumented in this encounter Care Teams Keyboard Specialist Relationship Specialty Start Date End Date Diana Mao MD PCP - General Geriatric Medicine 02/20/19 documented as of this encounter
--- OUTSIDE RECORDS SUMMARY | 2024-10-16 00:34 | XMS_ITS | Encounter Summary ---
Author Organization [facility]o Address [address] [place] [address] Phone Care Team Providers Care Barber Name Role Phone Diana Mao MD Primary Care Provider Unavail able Encounter Details Date Type Department Care Team (Late st Contact Info) Description 02/21/2019 Orders Only [facility] Nephrology and Hypertension [address] [place] [address], [address] [place] [address] Leticia Reyes MD [address] [facility], [address] [place] [address] Social History Tobacco Use Types Packs/Day Years [...] on filedocumented in this encounter Care Teams Barber Relationship Specialty Start Date End Date Diana Mao MD PCP - General Geriatric Medicine 02/20/19 documented as of this encounter
--- OUTSIDE RECORDS SUMMARY | 2024-10-16 00:34 | XMS_ITS | Encounter Summary ---
Author Organization [facility] utitheo Address [address] [place] [address] Phone Care Team Providers Care Plant Scientist Name Role Phone Unavailable Primary Care Provider Unavailabl e Encounter Details Date Type Department Care Team (Late st Contact Info) Description 10/04/2018 [facility] Encounter - Labs HISTORICAL CONVERSION CENTRAL [address] [place] [address], [place] [address] Leticia Reyes MD [facility] [facility], SU[address] [facility] [place] [address] Social History Tobacco Use Types Packs/Day Years [...] MANUALLY ENTERED ORDER Routine 10/04/2018 12:00 AM CHEMICAL UNIT OPERATOR documented in this encounter Results * (ABNORMAL) Manually Entered Order (10/04/2018 12:00 AM CHEMICAL UNIT OPERATOR) Blood Urea Nitrogen (BUN) 38(H) 7 - [...]
--- OUTSIDE RECORDS SUMMARY | 2024-10-16 00:34 | XMS_ITS | Encounter Summary ---
Author Organization [facility] utitheo Address [address] [place] [address] Phone Care Team Providers Care Traffic Attendant Name Role Phone Unavailable Primary Care Provider Unavailabl e Encounter Details Date Type Department Care Team (Late st Contact Info) Description 08/04/2017 [facility] Encounter - Labs HISTORICAL CONVERSION CENTRAL [address] [place] [address], [place] [address] Leticia Reyes MD [facility]4 [facility], SUITE [facility] [place] [address] Social History Tobacco Use Types Packs/Day Years [...]
--- OUTSIDE RECORDS SUMMARY | 2024-10-16 00:34 | XMS_ITS | Encounter Summary ---
Author Organization [facility] utitheo Address [address] [place] [address] Phone Care Team Providers Care Background Check Coordinator Name Role Phone Unavailable Primary Care Provider Unavailabl e Encounter Details Date Type Department Care Team (Late st Contact Info) Description 01/02/2018 [facility] Encounter - Labs HISTORICAL CONVERSION CENTRAL [address] [place] [address], [place] [address] Leticia Reyes MD [facility]4 [facility], [address] [facility] [place] [address] Social History Tobacco Use Types Packs/Day Years [...] MANUALLY ENTERED ORDER Routine 01/02/2018 12:00 AM REGISTERED NURSE MIDWIFE documented in this encounter Results * (ABNORMAL) Manually Entered Order (01/02/2018 12:00 AM REGISTERED NURSE MIDWIFE) Blood Urea Nitrogen (BUN) 29(H) 7 - [...]
--- OUTSIDE RECORDS SUMMARY | 2024-10-16 00:34 | XMS_ITS | Encounter Summary ---
Author Organization [facility] utitheo Address [address] [place] [address] Phone Care Team Providers Care Ball Points Inspector Name Role Phone Unavailable Primary Care Provider Unavailabl e Encounter Details Date Type Department Care Team (Late st Contact Info) Description 12/03/2015 [facility] Encounter - Labs HISTORICAL CONVERSION CENTRAL [address] [place] [address], [place] [address] Leticia Reyes MD [facility]4 [facility], SUITE [facility] [place] [address] Social History Tobacco Use Types Packs/Day Years [...] MANUALLY ENTERED ORDER Routine 12/03/2015 12:00 AM RE RECORDING MIXER documented in this encounter Results * (ABNORMAL) Manually Entered Order (12/03/2015 12:00 AM RE RECORDING MIXER) Blood Urea Nitrogen (BUN) 39(H) 7 - [...]
--- OUTSIDE RECORDS SUMMARY | 2024-10-16 00:34 | XMS_ITS | Encounter Summary ---
Author Organization [facility] utitheo Address [address] [place] [address] Phone Care Team Providers Care Loan Funder Name Role Phone Unavailable Primary Care Provider Unavailabl e Encounter Details Date Type Department Care Team (Late st Contact Info) Description 08/11/2015 [facility] Encounter - Labs HISTORICAL CONVERSION CENTRAL [address] [place] [address], [place] [address] Leticia Reyes MD [facility]4 [facility], SUITE [facility] [place] [address] Social History Tobacco Use Types Packs/Day Years [...]
--- OUTSIDE RECORDS SUMMARY | 2024-10-16 00:34 | XMS_ITS | Encounter Summary ---
Author Organization [facility] Address [address] [place] [address] Phone Care Team Providers Care Concrete Smoother Name Role Phone Unavailable Primary Care Provider Unavailabl e Encounter Details Date Type Department Care Team (Late st Contact Info) Description 08/23/2018 Legacy Encounter - Labs HISTORICAL CONVERSION CENTRAL [address] [place] [address], [place] [address] Leticia Reyes MD [facility]4 [facility], SUITE [facility] [place] [address] Social History Tobacco Use Types Packs/Day Years [...]
--- OUTSIDE RECORDS SUMMARY | 2024-10-16 00:34 | XMS_ITS | Encounter Summary ---
Author Organization [facility] Address [address] [place] [address] Phone Care Team Providers Care Ophthalmic Pathologist Name Role Phone Unavailable Primary Care Provider Unavailabl e Encounter Details Date Type Department Care Team (Late st Contact Info) Description 04/05/2017 Legacy Encounter - Labs HISTORICAL CONVERSION CENTRAL [address] [place] [address], [place] [address] Leticia Reyes MD [facility]4 [facility], SUITE [facility] [place] [address] Social History Tobacco Use Types Packs/Day Years [...]
--- OUTSIDE RECORDS SUMMARY | 2024-10-16 00:34 | XMS_ITS | Encounter Summary ---
Author Organization [facility] Address [address] [place] [address] Phone Care Team Providers Care Sustainability Analyst Name Role Phone Unavailable Primary Care Provider Unavailabl e Encounter Details Date Type Department Care Team (Late st Contact Info) Description 04/27/2018 Legacy Encounter - Labs HISTORICAL CONVERSION CENTRAL [address] [place] [address], [place] [address] Leticia Reyes MD [facility]4 [address] [facility], SUITE [facility] [place] [address] Social History Tobacco Use Types Packs/Day Years [...]
--- OUTSIDE RECORDS SUMMARY | 2024-10-16 00:34 | XMS_ITS | Encounter Summary ---
Author Organization [facility] Address [address] [place] [address] Phone Care Team Providers Care Director Search Marketing Strategies Name Role Phone Unavailable Primary Care Provider Unavailabl e Encounter Details Date Type Department Care Team (Late st Contact Info) Description 06/14/2017 Legacy Encounter - Labs HISTORICAL CONVERSION CENTRAL [address] [place] [address], [place] [address] Leticia Reyes MD [facility]4 [facility], SUITE [facility] [place] [address] Social History Tobacco Use Types Packs/Day Years [...]
--- OUTSIDE RECORDS SUMMARY | 2024-10-16 00:34 | XMS_ITS | Encounter Summary ---
Author Organization [facility] Address [address] [place] [address] Phone Care Team Providers Care Animation Director Name Role Phone Unavailable Primary Care Provider Unavailabl e Encounter Details Date Type Department Care Team (Late st Contact Info) Description 08/04/2016 Legacy Encounter - Labs HISTORICAL CONVERSION CENTRAL [address] [place] [address], [place] [address] Leticia Reyes MD [facility]4 [facility], SUITE [facility] [place] [address] Social History Tobacco Use Types Packs/Day Years [...]
--- OUTSIDE RECORDS SUMMARY | 2024-10-16 00:34 | XMS_ITS | Encounter Summary ---
Author Organization [facility] Address [address] [place] [address] Phone Care Team Providers Care Firer Bisque Kiln Name Role Phone Unavailable Primary Care Provider Unavailabl e Encounter Details Date Type Department Care Team (Late st Contact Info) Description 04/07/2016 Legacy Encounter - Labs HISTORICAL CONVERSION CENTRAL [address] [place] [address], [place] [address] Leticia Reyes MD [facility]4 [facility], SUITE [facility] [place] [address] Social History Tobacco Use Types Packs/Day Years [...]
--- OUTSIDE RECORDS SUMMARY | 2024-10-16 00:34 | XMS_ITS | Encounter Summary ---
Author Organization [facility] Address [address] [place] [address] Phone Care Team Providers Care Flask Carrier Name Role Phone Diana Mao MD Primary Care Provider Unavail able Encounter Details Date Type Department Care Team (Late st Contact Info) Description 02/21/2019 11:15 AM CDT Office Visit [facility] Nephrology and Hypertension [address] [place] [address], [address] [place] [address] Leticia Liz MD [address] [facility], [address] [place] [address] Chronic kidney disease stage 3 (CMS-HCC); Hypertensive [...] Diagnoses Diagnosis Chronic kidney disease stage 3 ([facility]-HCC) Hypertensive renal disease Other proteinuria Localized edema documented in this encounter Care Teams Flask Carrier Relationship Specialty Start Date End Date Diana Mao MD PCP - General Geriatric Medicine 02/20/19 documented as of this encounter
--- OUTSIDE RECORDS SUMMARY | 2024-10-16 00:37 | XMS_ITS | Encounter Summary ---
Author Organization [facility] Address [address] [place] [address] Phone Care Team Providers Care Used Car Manager Name Role Phone Sabrina Villaseñor MARBLE INSTALLER SUPERVISOR Primary Care Provider +1- [phone] Encounter Details Date Type Department Care Team (Late st Contact Info) Description 04/14/2023 Telephone [facility] Otolaryngology [facility] Medical Office Building 4 [address] [place] [phone] Tish Dutta Au.D. 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
--- OUTSIDE RECORDS SUMMARY | 2024-10-16 00:37 | XMS_ITS | Encounter Summary ---
Author Organization [facility] Address [address] [place] [address] Phone Care Team Providers Care Operations Support Manager Name Role Phone Sabrina Villaseñor MACHINE RIGGER Primary Care Provider +1- [phone] Encounter Details Date Type Department Care Team (Late st Contact Info) Description 05/06/2023 Telephone [facility] Otolaryngology [facility]4 [facility] Medical Office Building 4 [address] [place] [phone] Tish Dutta Au.D. 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
--- OUTSIDE RECORDS SUMMARY | 2024-10-16 00:37 | XMS_ITS | Encounter Summary ---
Author Organization [facility] Address [address] [place] [address] Phone Care Team Providers Care Tool And Equipment Rental Clerk Name Role Phone Sabrina Villaseñor WRAPPER STITCHER Primary Care Provider +1- [phone] Reason for Visit * Reason Onset Date Comments Hearing Aid Fitting 05/20/2023 Encounter Details Date Type Department Care Team (Late st Contact Info) Description 05/20/2023 Documentation [facility] Otolaryngology [address] [facility], [address] [place] [address] Tish Dutta Au.D. 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 - 05/20/2023 11:59 PM CDT Patient's daughter came in to brain picker the new left aid and the right [...] on filedocumented in this encounter Care Teams Tool And Equipment Rental Clerk Relationship Specialty Start Date End Date Sabrina Villaseñor NP [facility] [place] [address] PCP - General Nurse Practitioner 01/25/23 documented as of this encounter
--- OUTSIDE RECORDS SUMMARY | 2024-10-16 00:37 | XMS_ITS | Encounter Summary ---
Author Organization [facility] Address [address] [place] [address] Phone Care Team Providers Care Ground Worker Name Role Phone Sabrina Villaseñor ATHLETIC TRAINING INTERNSHIP Primary Care Provider +1- [phone] Encounter Details Date Type Department Care Team (Late st Contact Info) Description 05/06/2023 Telephone [facility]4 [facility] Medical Office Building [address] [place] [phone] Tish Dutta Au.D. 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
--- OUTSIDE RECORDS SUMMARY | 2024-10-16 00:37 | XMS_ITS | Encounter Summary ---
Author Organization [facility] Address [address] [place] [address] Phone Care Team Providers Care Pastry Wrapper Name Role Phone Yudith Gusman MD Primary Care Provide r Reason for Referral * Consultation (Routine) - Closed Specialty Diagnoses / Procedures Referred By Abena torrez Referred To Contact Audiology Diagnoses Sensorineural hearing loss (SNHL) of both ears Yudith Gusman MD [address] [facility] [address] [place] [address] Phone: tel: fax: [facility] (All Locations) Referral ID Status Reason Start Date Expiration Date V isits Requested Visits Authorized [id number] Closed Specialty Services Required 12/07/2022 01/06/2024 12 12 Question Answer Please select the performing region: [facility] (All Locations) [167] # of visits: 1 MIXER Reason for Visit * Consultation (Routine) - Closed Specialty Diagnoses / Procedures Referred By Abena torrez Referred To Contact Audiology Diagnoses Sensorineural hearing loss (SNHL) of both ears Yudith Gusman MD [address] [facility] [address] [place] [address] Phone: tel: fax: [facility] (All Locations) Referral ID Status Reason Start Date Expiration Date V isits Requested Visits Authorized [id number] Closed Specialty Services Required 12/07/2022 01/06/2024 12 12 Encounter Details Date Type Department Care Team (Latest Contact Info) Description 12/15/2022 1:00 PM HAND MIXER Procedure visit [facility] Otolaryngology [address] [facility] Medical Office Building [address] [place] [address] Tish Dutta Au.D. [address] [facility] [address] [place] [address] Sensorineural hearing loss (SNHL) of [...] on file Legal Sex Female 3:00 AM HAND MIXER Gender Identity Not on file Sexual Orientation Not on file documented as of this encounter Procedure Notes * Tish Dutta Au.D. - 12/15/2022 1:00 PM CST Procedures Kirsty Rea [id number] 12/15/22 Patient's daughter Imelda brought in hearing [...] properly Electroacoustic analysis was performed and revealed: Director Of Family Service Center Settings OSPL90 HFA FOG @50 EIN Right ALDANA-1 Test 107.9 44.6 9.3 Left ALDANA-1 Test 107 45.9 14.5 Hearing aid programming changes: No adjustments were made to the settings today Initial testing revealed left aid to be weak. The aid worked well after 1M ground crewman was replaced with stock item. New right slim tip will be ordered with serial number on file. Q$75 due at molded goods spot picker. PLAN/RECOMMENDATIONS: Patient is very ill, per Imelda, and it is difficulty for her to come into the office. Imelda will becontacted once the mold is in and it will be attached to the aid at that time. The aids were taken home and the right aid will be brought back to have mold attached. MIXER documented in this encounter Plan of Treatment Scheduled Referrals Name Type Priority Associated Diagnoses Order Schedule Ambulatory referral to Audiology (ADULT) Outpatient Referral Routine Sensorineural hearing loss (SNHL) of both ears Expected: 2022 (Approximate), Expires: 12/07/2023 documented as of this encounter Visit Diagnoses Diagnosis Sensorineural hearing loss (SNHL) of both ears- Primary documented in this encounter Care Teams Pastry Wrapper Relationship Specialty Start Date End Date Yudith Gusman MD [address] [facility] [address] [place] [address] PCP - General Family Medicine 04/14/22 01/24/23 documented as of this encounter
--- OUTSIDE RECORDS SUMMARY | 2024-10-16 00:37 | XMS_ITS | Encounter Summary ---
Author Organization [facility] Address [address] [facility] [address] [place] [address] Care Team Providers Care Oil Well Shooter Name Role Phone Yudith Gusman MD Primary Care Provide r Reason for Visit * Reason Onset Date Comments Medical Question/Miscellaneous 09/14/2022 Encounter Details Date Type Department Care Team ([facility] Contact Info) Description 09/14/[address] 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 She stated patienthas been admitted to [facility] for about a week now and that the patient is immobile. She stated she just does not want patient to be discharged from clinic. Caller???s Call back #: [phone] Does message need to be routed?Yes-FYI Only RAL UTILITY MACHINE OPERATOR documented in this encounter Plan of Treatment Not on file documented as of this encounter Visit Diagnoses Not on filedocumented in this encounter Care Teams Oil Well Shooter Relationship Specialty Start Date End Date Yudith Gusman MD [address] [place] [address] DR [address] [place] [address] PCP - General Family Medicine 04/14/22 01/24/23 documented as of this encounter
--- OUTSIDE RECORDS SUMMARY | 2024-10-16 00:37 | XMS_ITS | Encounter Summary ---
Author Organization [facility] Address [address] [place] [address] Phone Care Team Providers Care Food Service Director Name Role Phone Yudith Gusman MD Primary Care Provide r Encounter Details Date Type Department Care Team (Late st Contact Info) Description 01/07/2023 Documentation [facility] Otolaryngology [address] [facility] Medical Office Building 4 [facility] [address] [place] [address] Tish Dutta Au.D. 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 KEPT OLD MOLD WELL.KAYKAY* BACK COORDINATOR documented in this encounter Plan of Treatment Not on file documented as of this encounter Visit Diagnoses Not on filedocumented in this encounter Care Teams Food Service Director Relationship Specialty Start Date End Date Yudith Gusman MD [address] [facility] [address] [place] [address] PCP - General Family Medicine 04/14/22 01/24/23 documented as of this encounter
--- OUTSIDE RECORDS SUMMARY | 2024-10-16 00:37 | XMS_ITS | Referral Summary ---
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
--- OUTSIDE RECORDS SUMMARY | 2024-10-16 00:37 | XMS_ITS | Encounter Summary ---
Author Organization [facility] Address [address] [place] [address] Phone Care Team Providers Care Hearing Care Professional Name Role Phone Sabrina Villaseñor CORPORATE DRIVER Primary Care Provider +1- [phone] Encounter Details Date Type Department Care Team (Late st Contact Info) Description 01/25/2023 Telephone [facility] Otolaryngology [facility]4 [facility] Medical Office Building 4 [address] [place] [address] Amanda Rodriguez Social History Tobacco [...] on file Legal Sex Female 3:00 AM HOUSEKEEPING AID Gender Identity Not on file Sexual Orientation [...] on filedocumented in this encounter Care Teams Hearing Care Professional Relationship Specialty Start Date End Date Sabrina Villaseñor NP [address] [place] [address] PCP - General Nurse Practitioner 01/25/23 documented as of this encounter
--- OUTSIDE RECORDS SUMMARY | 2024-10-16 00:37 | XMS_ITS | Clinical Summary ---
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 Gender Identity Not on file Sexual Orientation [...] Pneumococcal vaccine 65+ Completed 09/08/2018, 03/2017 Insurance [facility] [employer] [facility] [employer] Advance Directives For more information, please contact: [phone] Documents on File Type Date Recorded Patient Hothouse Worker Expl anation Advance Directives and Living Will 12/15/2022 1:13 PM Power of Corporate Real Estate Specialist document Care Teams Office Mail Clerk Relationship Specialty Start Date End Date Sabrina Villaseñor NP [address] [place] [address] PCP - General Nurse Practitioner 01/25/23
--- OUTSIDE RECORDS SUMMARY | 2024-10-16 00:37 | XMS_ITS | Encounter Summary ---
Author Organization [facility] Address [address] [place] [address] Phone Care Team Providers Care Vocational Nurse Name Role Phone Sabrina Villaseñor FLEET ADMINISTRATIVE ASSISTANT Primary Care Provider +1- [phone] Reason for Visit * Consultation (Routine) - Closed Specialty Diagnoses / Procedures Referred By Abena t Referred To Contact Audiology Diagnoses Sensorineural hearing loss (SNHL) of both ears Yudith Gusman MD [address] [place] [address] Phone: tel: fax: [facility] (All Locations) Referral ID Status Reason Start Date Expiration Date V isits Requested Visits Authorized [id number] Closed Specialty Services Required 12/07/2022 01/06/2024 12 12 Encounter Details Date Type Department Care Team (Latest Contact Info) Description 05/20/2023 8:00 AM CDT Procedure visit [facility] Otolaryngology [address] [facility] Medical Office Building [address] [address] Tish Dutta Au.D. 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 - 05/20/2023 8:00 AM CDT Patient's daughter came in to coal picker the new left aid and the [...] Primary documented in this encounter Care Teams Vocational Nurse Relationship Specialty Start Date End Date Sabrina Villaseñor NP [address] [place] [address] PCP - General Nurse Practitioner 01/25/23 documented as of this encounter
--- OUTSIDE RECORDS SUMMARY | 2024-10-16 00:38 | XMS_ITS | Encounter Summary ---
Author Organization [facility] Address [address] [place] [address] Phone Care Team Providers Care Planning Manager Name Role Phone Yudith Gusman MD Primary Care Provide r Encounter Details Date Type Department Care Team (Late st Contact Info) Description 04/27/2022 Documentation [facility] Otolaryngology [address] [facility] Medical Office Building 4 [facility] [address] [place] [address] Tish Dutta Au.D. 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 documented in this encounter Plan of Treatment Not on file documented as of this encounter Visit Diagnoses Not on filedocumented in this encounter Care Teams Planning Manager Relationship Specialty Start Date End Date Yudith Gusman MD [address] [facility] [address] [place] [address] PCP - General Family Medicine 04/14/22 01/24/23 documented as of this encounter
--- OUTSIDE RECORDS SUMMARY | 2024-10-16 00:38 | XMS_ITS | Encounter Summary ---
Author Organization [facility] Address [address] [place] [address] Phone Care Team Providers Care Media Relations Director Name Role Phone iDana Mao MD Primary Care Provider [phone] Reason for Referral * Consultation - Closed Specialty Diagnoses / Procedures Referred By Abena torrez Referred To Contact Audiology Diagnoses Sensorineural hearing loss (SNHL) of both ears Diana Mao MD Phone: tel: fax: [facility] (All Locations) Referral ID Status Reason Start Date Expiration Date V isits Requested Visits Authorized [id number] Closed Specialty Services Required 09/16/2020 10/17/2021 1 1 Question Answer Please select the performing region: [facility] (All Locations) [167] # of visits: 1 RENOVATOR Reason for Visit * Consultation - Closed Specialty Diagnoses / Procedures Referred By Abena torrez Referred To Contact Audiology Diagnoses Sensorineural hearing loss (SNHL) of both ears Diana Mao MD Phone: tel: fax: [facility] (All Locations) Referral ID Status Reason Start Date Expiration Date V isits Requested Visits Authorized [id number] Closed Specialty Services Required 09/16/2020 10/17/2021 1 1 Encounter Details Date Type Department Care Team (Latest Contact Info) Description 09/16/2020 2:30 PM RUG RENOVATOR Procedure visit [facility] Otolaryngology [address] [facility] Medical Office Building [address] [place] [address] Tish Dutta Au.D. [address] [facility] [address] [place] [address] Sensorineural hearing loss (SNHL) of both ears (Primary Dx) Social History Tobacco Use Types Packs/Day Years Used Date Smoking Tobacco: Never Comments Unknown Sex and Gender Information Value Date Recorded Sex Assigned at Not on file Legal Sex Female 3:00 AM RUG RENOVATOR Gender Identity Not on file Sexual Orientation Not on file documented as of this encounter Procedure Notes * Tish Dutta Au.D. - 09/16/2020 2:30 PM CST Procedures Patient fit with new left slim tip. Did well with insertion after some practice. At patient's request, gain for television streamer ([employer]) was decreased. Gain in low frequencies decreased to target. Patient scheduled to follow up in six months for an HAC or sooner as needed. RENOVATOR documented in this encounter Miscellaneous Notes * Addendum Note - Catarina Downing - 09/16/2020 2:30 PM CSTAddended by: CATARINA DOWNING on: 09/17/2020 07:41 AM Modules accepted: Orders RENOVATOR documented in this encounter Plan of Treatment Scheduled Referrals Name Type Priority Associated Diagnoses Order Schedule Ambulatory referral to Audiology (ADULT) Outpatient Referral Routine Sensorineural hearing loss (SNHL) of both ears Expected: 10/01/2020 (Approximate), Expires: 09/17/2021 documented as of this encounter Visit Diagnoses Diagnosis Sensorineural hearing loss (SNHL) of both ears- Primary documented in this encounter Care Teams Media Relations Director Relationship Specialty Start Date End Date Diana Mao MD [address] [place] [address] PCP - General Geriatric Medicine 03/25/20 11/11/21 documented as of this encounter
--- OUTSIDE RECORDS SUMMARY | 2024-10-16 00:38 | XMS_ITS | Encounter Summary ---
Author Organization [facility] Address [address] [address] Care Team Providers Care Parking Officer Name Role Phone Diana Mao MD Primary Care Provider [phone] Reason for Visit * Diagnostic Imaging (Routine) - Closed Specialty Diagnoses / Procedures Referred By Contac t Referred To Contact Diagnoses Right shoulder pain, unspecified chronicity Procedures XR Shoulder Right 2 or More Views Cherry De La Cruz PA Phone: tel: fax: [facility] Referral ID Status Reason Start Date Expiration Date Visits Re quested Visits Authorized [id number] Closed 12/18/2020 01/17/2022 1 1 Encounter Details Date Type Department Care Team (Latest Contact Info) Description 12/18/2020 9:40 AM PLANER FEEDER - 12/18/2020 11:59 PM PLANER FEEDER Hospital Encounter [facility] Orthopedics and Sports Medicine [address] [place] [phone] Discharge Disposition: Discharge to home or self care Social History Tobacco Use Types Packs/Day Years Used Date Smoking Tobacco: Former Smokeless Tobacco: Never Alcohol Use Standard Drinks/Week Comments Yes 0 (1 standard drink = 0.6 oz pur e alcohol) Comments Unknown Sex and Gender Information Value Date Recorded Sex Assigned at Not on file Legal Sex Female 3:00 AM PLANER FEEDER Gender Identity Not on file Sexual Orientation [...] Read Routine (OP Routine) 12/22/2020 8:17 AM PLANER FEEDER Primary osteoarthritis of right shoulder documented in this encounter Results * XR Shoulder Right 2 or More Views (12/22/2020 8:17 AM PLANER FEEDER) Anatomical Region Laterality Modality Upper Extremities, Shoulder Right Radi ographic Imaging Narrative 12/22/2020 8:17 AM PLANER FEEDER X-rays of the right shoulder are viewed and interpreted in clinic today. ?? These demonstrate no fracture subluxation or destructive lesions. ??AC joint DJD changes present with . ??Glenohumeral arthritic change present with joint space narrowing and osteophyte formation. ?? Cherry ZAMUDIO IMG XR PROCEDURES Final Result documented in this encounter Visit Diagnoses Not on filedocumented in this encounter Care Teams Parking Officer Relationship Specialty Start Date End Date Diana Mao MD [address] [place] [address] PCP - General Geriatric Medicine 03/25/20 11/11/21 documented as of this encounter
--- OUTSIDE RECORDS SUMMARY | 2024-10-16 00:38 | XMS_ITS | Encounter Summary ---
Author Organization [facility] Address [address] [place] [address] Phone Care Team Providers Care Public Bath Attendant Name Role Phone Yudith Gusman MD Primary Care Provide r Reason for Visit * Consultation (Routine) - Closed Specialty Diagnoses / Procedures Referred By Abena torrez Referred To Contact Audiology Diagnoses Sensorineural hearing loss (SNHL) of both ears Diana Mao MD [address] [place] [address] Phone: tel: fax: [facility] (All Locations) Referral ID Status Reason Start Date Expiration Date V isits Requested Visits Authorized [id number] Closed Specialty Services Required 11/13/2021 10/30/2022 99 99 Encounter Details Date Type Department Care Team (Latest Contact Info) Description 07/23/2022 1:00 PM CDT Procedure visit [facility] Otolaryngology [address] [facility] Medical Office Building [address] [phone] Tish Dutta Au.D. 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 - 07/23/2022 1:00 PM CDT Procedures Kirsty Rea [id number] 08/09/22 Scheduled Routine Check before the warranty expires on 08/30/2022 Patient reports line maintenance technician seems to be working well and the aids seem to be charging. ASSESSMENT: Otoscopic examination revealed: EACs and tympanic membranes visualized bilaterally. Aid(s) cleaned and checked. Listening check revealed: Aid(s) clear and no evidence of distortion or intermittent performance. VC and Program buttons functioning properly Electroacoustic analysis was performed and revealed: Supervisor Product Inspection Settings OSPL90 HFA FOG @50 EIN Right [...] patient to consider having aids sent to [facility] for warranty overhaul if not considering extending the warranty. PLAN/RECOMMENDATIONS: Hearing aid check in December with a hearing test as scheduled or sooner if needed documented in this encounter Plan of Treatment Not on file documented as of this encounter Visit Diagnoses Diagnosis Sensorineural hearing loss (SNHL) of both ears- Primary documented in this encounter Care Teams Public Bath Attendant Relationship Specialty Start Date End Date Yudith Gusman MD [address] [place] [address] DR REYES [address] [place] [address] PCP - General Family Medicine 04/14/22 01/24/23 documented as of this encounter
--- OUTSIDE RECORDS SUMMARY | 2024-10-16 00:38 | XMS_ITS | Encounter Summary ---
Author Organization [facility] Address [address] [place] [address] Phone Care Team Providers Care Pediatric Geneticist Name Role Phone Diana Mao MD Primary Care Provider Encounter Details Date Type Department Care Team (Late st Contact Info) Description 08/06/2020 Telephone [facility] Otolaryngology [address] [facility] [address] [place] [phone] Tish Dutta Au.D. [address] [facility] [address] [place] [address] Social History Tobacco Use Types Packs/Day Years Used Date Smoking Tobacco: Never Comments Unknown Sex and Gender Information Value Date Recorded Sex Assigned at Not on file Legal Sex Female 3:00 AM TOOL AND DIE ENGINEER Gender Identity Not on file Sexual [...] on filedocumented in this encounter Care Teams Pediatric Geneticist Relationship Specialty Start Date End Date Diana Mao MD [address] [place] [address] PCP - General Geriatric Medicine 03/25/20 11/11/21 documented as of this encounter
--- OUTSIDE RECORDS SUMMARY | 2024-10-16 00:38 | XMS_ITS | Encounter Summary ---
Author Organization [facility] Address [address] [place] [address] Phone Care Team Providers Care Alumni Coordinator Name Role Phone Diana Mao MD Primary Care Provider Reason for Visit * Consultation (Routine) - Closed Specialty Diagnoses / Procedures Referred By Contac t Referred To Contact Audiology Diagnoses Sensorineural hearing loss (SNHL) of both ears Diana Mao MD [address] [place] [address] Phone: tel: fax: [facility] (All Locations) Referral ID Status Reason Start Date Expiration Date V isits Requested Visits Authorized [id number] Closed Specialty Services Required 11/13/2021 10/30/2022 99 99 Encounter Details Date Type Department Care Team (Latest Contact Info) Description 12/25/2021 1:30 PM DISTRIBUTION ENGINEERING TECHNOLOGIST Procedure visit [facility] Otolaryngology [address] [facility] Medical Office Building [address] [address] Tish Dutta Au.D. [facility] [place] [address] Sensorineural hearing loss (SNHL) of both ears Social History Tobacco Use Types Packs/Day Years Used Date Smoking Tobacco: Former Smokeless Tobacco: Never Alcohol Use Standard Drinks/Week Comments Yes 0 (1 standard drink = 0.6 oz pur e alcohol) Comments Unknown Sex and Gender Information Value Date Recorded Sex Assigned at Not on file Legal Sex Female 3:00 AM DISTRIBUTION ENGINEERING TECHNOLOGIST Gender Identity Not on file Sexual Orientation Not on file documented as of this encounter Procedure Notes * Tish Dutta Au.D. - 12/25/2021 1:30 PM CST Procedures Kirsty Rea [id number] 12/25/21 Diana Mao MD PATIENT REPORTS: Long [...] properly Electroacoustic analysis was performed and revealed: Propeller Driven Airplane Mechanic Settings OSPL90 MTG EIN Right ALDANA-1 User 95.8 22.7 32.7 Left ALDANA-1 User 109.3 28.5 30.3 Hearing aid programming changes: recalculated fit with latest thresholds PLAN/RECOMMENDATIONS: ENT follow-up Retest 12 months/ PRN Hearing assistive technology (HAT) Continue use of amplification Hearing aid check in 6 months and before warranty expires on 08/30/2022 RIBUTION ENGINEERING TECHNOLOGIST documented in this encounter Plan of Treatment Not on file documented as of this encounter Procedures Procedure Name Priority Date/Time Associated Diagnosis Comments AUDBASE RESULTS 12/25/2021 1:33 PM DISTRIBUTION ENGINEERING TECHNOLOGIST documented in this encounter Results * AUDBASE RESULTS (12/25/2021 1:33 PM DISTRIBUTION ENGINEERING TECHNOLOGIST) Provider Scanning AUDIOLOGY SERVICES ORDERABLES Final Result documented in this encounter Visit Diagnoses Diagnosis Sensorineural hearing loss (SNHL) of both ears documented in this encounter Orders Outpatient Referral Count Last Ordered Date Fir st Ordered Date AMB REFERRAL TO AUDIOLOGY (ADULT) 1 022 documented in this encounter Care Teams Alumni Coordinator Relationship Specialty Start Date End Date Diana Mao MD [address] [place] [address] PCP - General Geriatric Medicine 11/12/21 04/13/22 documented as of this encounter
--- OUTSIDE RECORDS SUMMARY | 2024-10-16 00:38 | XMS_ITS | Encounter Summary ---
Author Organization [facility] Address [address] [place] [address] Phone Care Team Providers Care Electromechanical Inspector Name Role Phone Diana Mao MD Primary Care Provider Encounter Details Date Type Department Care Team (Late st Contact Info) Description 01/20/2021 Documentation [facility] Otolaryngology [facility] Medical Office Building [address] [phone] Tish Dutta Au.D. [address] [address] Social History Tobacco Use Types Packs/Day Years Used Date Smoking Tobacco: Former Smokeless Tobacco: Never Alcohol Use Standard Drinks/Week Comments Yes 0 (1 standard drink = 0.6 oz pur e alcohol) Comments Unknown Sex and Gender Information Value Date Recorded Sex Assigned at Not on file Legal Sex Female 3:00 AM STUDENT TEACHING COORDINATOR Gender Identity Not on file Sexual Orientation Not on file documented as of this encounter Progress Notes * Tish Dutta Au.D. - 01/20/2021 6:05 PM CDT Patient spoke with Darell at the lockstitch front maker and authorized use of L/D replacement for Left aid. Replacement left and and left slim tip will be ordered and patient will be contacted. [id number] documented in this encounter Plan of Treatment Not on file documented as of this encounter Visit Diagnoses Not on filedocumented in this encounter Care Teams Electromechanical Inspector Relationship Specialty Start Date End Date Diana Mao MD [address] [place] [address] PCP - General Geriatric Medicine 03/25/20 11/11/21 documented as of this encounter
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
--- OUTSIDE RECORDS SUMMARY | 2024-10-16 00:38 | XMS_ITS | Encounter Summary ---
Author Organization [facility] Address [address] [facility] [address] [place] [address] Care Team Providers Care Goldbeater Name Role Phone Yudith Gusman MD Primary Care Provide r Encounter Details Date Type Department Care Team (Late st Contact Info) Description 04/20/2022 Orders Only [facility] [address] [facility] [address] [place] [address] Yudith Gusman MD [address] [place] [address] [address] [place] [address] Chronic diarrhea (Primary Dx) Social History Tobacco [...] on file Legal Sex Female 3:00 AM PRACTICE ADVISOR Gender Identity Not on file Sexual Orientation Not on file documented as of this encounter Plan of Treatment Not on file documented as of this encounter Visit Diagnoses Diagnosis Chronic diarrhea- Primary Diarrhea documented in this encounter Care Teams Goldbeater Relationship Specialty Start Date End Date Yudith Gusman MD 2 [facility] [address]YES [address] [place] [address] PCP - General Family Medicine 04/14/22 01/24/23 documented as of this encounter
--- OUTSIDE RECORDS SUMMARY | 2024-10-16 00:38 | XMS_ITS | Encounter Summary ---
Author Organization [facility] Address [address] [place] [address] Phone Care Team Providers Care Medical Records Manager Name Role Phone Diana Mao MD Primary Care Provider Encounter Details Date Type Department Care Team (Latest Contact Info) Description 11/06/2020 10:00 AM PRINTER'S DEVIL Procedure visit [facility] Otolaryngology [address] [facility] Medical Office Building [address] [address] Tish Dutta Au.D. [address] [phone] Sensorineural hearing loss (SNHL) of both ears (Primary Dx) Social History Tobacco Use Types Packs/Day Years Used Date Smoking Tobacco: Never Comments Unknown Sex and Gender Information Value Date Recorded Sex Assigned at Not on file Legal Sex Female 3:00 AM PRINTER'S DEVIL Gender Identity Not on file Sexual Orientation [...] home and follow up if difficulty continues. TER'S DEVIL documented in this encounter Plan of Treatment Not on file documented as of this encounter Visit Diagnoses Diagnosis Sensorineural hearing loss (SNHL) of both ears- Primary documented in this encounter Care Teams Medical Records Manager Relationship Specialty Start Date End Date Diana Mao MD [address] [place] [address] PCP - General Geriatric Medicine 03/25/20 11/11/21 documented as of this encounter
--- OUTSIDE RECORDS SUMMARY | 2024-10-16 00:38 | XMS_ITS | Encounter Summary ---
Author Organization [facility] Address [address] [address] Care Team Providers Care Assistant Tennis Coach Name Role Phone Diana Mao MD Primary Care Provider [phone] Reason for Visit * Reason Onset Date Comments medical Question 01/20/2021 Encounter Details Date Type Department Care Team (Late st Contact Info) Description 01/20/2021 Telephone [facility] Orthopedics and Sports Medicine [address] [place] [address] Cherry De La Cruz PA [address] [place] [address] [address] [place] [phone] medical Question Social History Tobacco Use Types Packs/Day Years Used Date Smoking Tobacco: Former Smokeless Tobacco: Never Alcohol Use Standard Drinks/Week Comments Yes 0 (1 standard drink = 0.6 oz pur e alcohol) Comments Unknown Sex and Gender Information Value Date Recorded Sex Assigned at Not on file Legal Sex Female 3:00 AM CASINO ACCOUNTANT Gender Identity Not on file Sexual Orientation [...] filedocumented in this encounter Care Teams Assistant Tennis Coach Relationship Specialty Start Date End Date Diana Mao MD [address] [place] [address] PCP - General Geriatric Medicine 03/25/20 11/11/21 documented as of this encounter
--- OUTSIDE RECORDS SUMMARY | 2024-10-16 00:38 | XMS_ITS | Encounter Summary ---
Author Organization [facility] Address [address] [place] [address] Phone Care Team Providers Care Foxpro Developer Name Role Phone Diana Mao MD Primary Care Provider Encounter Details Date Type Department Care Team (Late st Contact Info) Description 01/12/2021 Telephone [facility] Otolaryngology [facility]4 [facility] Medical Office Building [address] [address] Tish Dutta Au.D. [address] [address] Social History Tobacco Use Types Packs/Day Years Used Date Smoking Tobacco: Former Smokeless Tobacco: Never Alcohol Use Standard Drinks/Week Comments Yes 0 (1 standard drink = 0.6 oz pur e alcohol) Comments Unknown Sex and Gender Information Value Date Recorded Sex Assigned at Not on file Legal Sex Female 3:00 AM CONFERENCE SERVICES COORDINATOR Gender Identity Not on file Sexual [...] on filedocumented in this encounter Care Teams Foxpro Developer Relationship Specialty Start Date End Date Diana Mao MD [address] [place] [address] PCP - General Geriatric Medicine 03/25/20 11/11/21 documented as of this encounter
--- OUTSIDE RECORDS SUMMARY | 2024-10-16 00:38 | XMS_ITS | Encounter Summary ---
Author Organization [facility] Address [address] [facility] [address] [place] [address] Care Team Providers Care Finance Advisor Name Role Phone Yudith Gusman MD Primary Care Provide r Reason for Visit * Reason Comments Diarrhea Patient is [facility] the [facility] for Chronic diarrhea and abnormal CT scan. Patient states she has been having diarrhea for two years. Patient states she takes cholestyramine and states it is working. Pt states ct scan showed wall thickining Encounter Details Date Type Department Care Team (Latest Contact Info) Description 06/08/2022 2:00 PM CDT Office Visit [facility] Gastroenterology at [address] [place] [phone] Aj Desai MD [address] [place] [address] [address] [place] [address] Chronic diarrhea (Primary Dx) Social History Tobacco [...] on file Legal Sex Female 3:00 AM SIMULATION ENGINEER Gender Identity Not on file Sexual [...] mouth added in this encounter Care Teams Finance Advisor Relationship Specialty Start Date End Date Yudith Gusman MD [address] [facility] [place] [address] PCP - General Family Medicine 04/14/22 01/24/23 documented as of this encounter
--- OUTSIDE RECORDS SUMMARY | 2024-10-16 00:38 | XMS_ITS | Encounter Summary ---
Author Organization [facility] Address [address] [facility] [address] [place] [address] Care Team Providers Care Facility Operations Manager Name Role Phone Yudith Gusman MD Primary Care Provide r Encounter Details Date Type Department Care Team (Late st Contact Info) Description 05/28/2022 Orders Only [facility] Primary Care at [place] 2 [facility] [address] [place] [address] Yudith Gusman MD [address] [place] [address] [address] [place] [address] Renal failure, unspecified chronicity (Primary Dx) Social [...] on file Legal Sex Female 3:00 AM STUNNER AND SHACKLER Gender Identity Not on file Sexual Orientation Not on file documented as of this encounter Plan of Treatment Not on file documented as of this encounter Visit Diagnoses Diagnosis Renal failure, unspecified chronicity- Primary documented in this encounter Care Teams Facility Operations Manager Relationship Specialty Start Date End Date Yudith Gusman MD [address] [place] [address] DR REYES [address] [place] [address] PCP - General Family Medicine 04/14/22 01/24/23 documented as of this encounter
--- OUTSIDE RECORDS SUMMARY | 2024-10-16 00:38 | XMS_ITS | Encounter Summary ---
Author Organization [facility] Address [address] [facility] [address] [place] [address] Care Team Providers Care Metal Engineering Process Worker Name Role Phone Diana Mao MD Primary Care Provider [phone] Encounter Details Date Type Department Care Team (Late st Contact Info) Description 07/13/2021 Telephone [place] [facility] 2 [facility] [address] [place] [address] Jc Macdonald MD [address] [facility] [address], [place] [address] Social History Tobacco Use Types Packs/Day Years Used Date Smoking Tobacco: Former Smokeless Tobacco: Never Alcohol Use Standard Drinks/Week Comments Yes 0 (1 standard drink = 0.6 oz pur e alcohol) Comments Unknown Sex and Gender Information Value Date Recorded Sex Assigned at Not on file Legal Sex Female 3:00 AM DIRECTOR BIOSTATISTICS Gender Identity Not on file Sexual Orientation [...] - 07/20/2021 9:12 AM CDT 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 Please advise.... * Telephone Encounter - Rebeca Hernandez - 07/17/2021 8:39 AM CDT 07/17/21-lmom. 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 adb * Telephone Encounter - [...] on filedocumented in this encounter Care Teams Metal Engineering Process Worker Relationship Specialty Start Date End Date Diana Mao MD [address] [place] [address] PCP - General Geriatric Medicine 03/25/20 11/11/21 documented as of this encounter
--- OUTSIDE RECORDS SUMMARY | 2024-10-16 00:38 | XMS_ITS | Encounter Summary ---
Author Organization [facility] Address [address] [place] [address] Phone Care Team Providers Care Terminal Makeup Operator Name Role Phone Diana Mao MD Primary Care Provider Reason for Visit * Consultation (Routine) - Closed Specialty Diagnoses / Procedures Referred By Abena t Referred To Contact Audiology Diagnoses Sensorineural hearing loss (SNHL) of both ears Diana Mao MD [address]L DO[address] [place] [address] Phone: tel: fax: [facility] (All Locations) Referral ID Status Reason Start Date Expiration Date V isits Requested Visits Authorized [id number] Closed Specialty Services Required 11/13/2021 10/30/2022 99 99 Encounter Details Date Type Department Care Team (Latest Contact Info) Description 04/05/2022 4:00 PM CDT Procedure visit [facility] Otolaryngology [address] [facility] [address] [place] [address] Tish Dutta Au.D. [facility] [place] [address] [place] [address] Sensorineural hearing loss (SNHL) of both ears (Primary Dx) Social History Tobacco Use Types Packs/Day Years Used Date Smoking Tobacco: Former Smokeless Tobacco: Never Alcohol Use Standard Drinks/Week Comments Yes 0 (1 standard drink = 0.6 oz pur e alcohol) Comments Unknown Sex and Gender Information Value Date Recorded Sex Assigned at Not on file Legal Sex Female 3:00 AM POPCORN MACHINE OPERATOR Gender Identity Not on file Sexual Orientation Not on file documented as of this encounter Procedure Notes * Tish Dutta Au.D. - 04/05/2022 4:00 PM CDT Procedures Kirsty Rea [id number] 04/08/22 Problem with aid - left aid [...] made to the settings today Aids and timber sprinkler are under warranty. Provided patient with new timber sprinkler from stock. PLAN/RECOMMENDATIONS: Hearing aid check as scheduled in July. documented in this encounter Plan of Treatment Not on file documented as of this encounter Visit Diagnoses Diagnosis Sensorineural hearing loss (SNHL) of both ears- Primary documented in this encounter Care Teams Terminal Makeup Operator Relationship Specialty Start Date End Date Diana Mao MD [address] [place] [address] PCP - General Geriatric Medicine 11/12/21 04/13/22 documented as of this encounter
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
--- OUTSIDE RECORDS SUMMARY | 2024-10-16 00:38 | XMS_ITS | Encounter Summary ---
Author Organization [facility] Address [address] [facility] [address] [place] [address] Care Team Providers Care A/C Tech Name Role Phone Yudith Gusman MD Primary Care Provide r Encounter Details Date Type Department Care Team (Late st Contact Info) Description 07/22/2022 Telephone [facility] Primary Care at [place] 2 [facility] [address] [place] [address] Yudith Gusman MD [address] [place] [address] [address] [place] [address] Social History Tobacco Use Types Packs/Day Years [...] Legal Sex Female 3:00 AM ADMINISTRATIVE SUPPORT MANAGER Gender Identity Not on file Sexual Orientation [...] on filedocumented in this encounter Care Teams A/C Tech Relationship Specialty Start Date End Date Yudith Gusman MD [address] [place] [address] DR REYES [address] [place] [address] PCP - General Family Medicine 04/14/22 01/24/23 documented as of this encounter
--- OUTSIDE RECORDS SUMMARY | 2024-10-16 00:38 | XMS_ITS | Encounter Summary ---
Author Organization [facility] Address [address] [facility] [address] [place] [address] Care Team Providers Care Chicken Hanger Name Role Phone Yudith Gusman MD Primary Care Provide r Reason for Referral * Diagnostic Imaging (Routine) - Canceled Specialty Diagnoses / Procedures Referred By Contac t Referred To Contact Diagnoses Chronic diarrhea Procedures CT Abdomen Pelvis W WO Contrast Yudith Gusman MD [address] [place] [address] DR REYES [address] [place] [address] Phone: tel: fax: [facility] [address] [place] [address] Referral ID Status Reason Start Date Expiration Date V isits Requested Visits Authorized [id number] Canceled 04/15/2022 05/15/2023 1 1 Encounter Details Date Type Department Care Team (Late st Contact Info) Description 04/14/2022 Orders Only [place] [facility] [address] [facility] [address] [place] [address] Yudith Gusman MD [address] [facility] [address]YES [address] [place] [address] Hypertension, essential (Primary Dx); Chronic diarrhea; [...] on file Legal Sex Female 3:00 AM CARDIAC CATHETERIZATION TECHNOLOGIST Gender Identity Not on file Sexual [...] glucose documented in this encounter Care Teams Chicken Hanger Relationship Specialty Start Date End Date Yudith Gusman MD [address] [facility] [address]YES [address] [place] [address] PCP - General Family Medicine 04/14/22 01/24/23 documented as of this encounter
--- OUTSIDE RECORDS SUMMARY | 2024-10-16 00:38 | XMS_ITS | Encounter Summary ---
Author Organization [facility] Healthcare Address [address] [place] [address] Care Team Providers Care Hospital Liaison Name Role Phone Yudith Gusman MD Primary Care Provide r Reason for Visit * MRI/CAT/PET Scan (Routine) - Closed Specialty Diagnoses / Procedures Referred By Contac t Referred To Contact Diagnoses Chronic diarrhea Procedures CT Abdomen Pelvis WO Contrast CT Abdomen Pelvis W Contrast Yudith Gusman MD [address] [facility] [address] REYES [address] [place] [address] Phone: tel: fax: [address] [address] Referral ID Status Reason Start Date Expiration Date Visits Re quested Visits Authorized [id number] Closed 05/10/2022 11/06/2022 1 1 Encounter Details Date Type Department Care Team (Latest Contact Info) Description 05/26/2022 2:32 PM CDT - 05/26/2022 11:59 PM CDT Hospital Encounter [facility] [address] [place] [address] Yudith Gusman MD [address] [facility] [address] REYES [address] [place] [address] Chronic diarrhea Discharge Disposition: Discharge to home [...] on file 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 AR: BRENDA Report ID: [id number] Reading Location: [place] [address] Yudith Gusman MD IMG CT PROCEDURES Fin al Result * (ABNORMAL) Creatinine, whole blood (05/26/2022 2:41 PM CDT) Creatinine, bld 3.34(H) 0.60 - 1.30 mg/dL [facility] ([facility]) Blood 05/26/2022 2:41 PM CDT 05/26/2022 2:42 PM CDT Yudith Gusman MD LAB BLOOD ORDERABLES Final Result [facility] ([facility]) 1 [facility] [place] [address] documented in this encounter Visit Diagnoses Diagnosis Chronic diarrhea Diarrhea documented in this encounter Care Teams Hospital Liaison Relationship Specialty Start Date End Date Yudith Gusman MD [address] [facility] [address] REYES [address] [place] [address] PCP - General Family Medicine 04/14/22 01/24/23 documented as of this encounter
--- OUTSIDE RECORDS SUMMARY | 2024-10-16 00:38 | XMS_ITS | Encounter Summary ---
Author Organization [facility] Address [address] [facility] [address] [place] [address] Care Team Providers Care Compensation Intern Name Role Phone Yudith Gusman MD Primary Care Provide r Encounter Details Date Type Department Care Team (Late st Contact Info) Description 08/24/2022 Telephone [facility] Primary Care at [place] 2 [facility] [address] [place] [address] Yudith Gusman MD [address] [place] [address] [address] [place] [address] Social History Tobacco Use Types Packs/Day Years [...] on file 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 thanks LIANCE REPRESENTATIVE * Telephone Encounter - Rebeca Hernandez - 09/08/2022 8:23 AM CST 09/08/22-no show letter sent to reschedule appt with dr crouch. adb LIANCE REPRESENTATIVE * Telephone Encounter - Rebeca Hernandez - 09/07/2022 3:05 PM CST 09/07/22-mailbox is full-reschedule appt with dr crouch. adb LIANCE REPRESENTATIVE * Telephone Encounter - Rebeca Hernandez - 09/06/2022 12:32 PM CST 09/06/22-mailbox is full-is pt still in hosp? Try to reschedule appointment with dr crouch from 08/24/22. adb LIANCE REPRESENTATIVE * Telephone Encounter - Rebeca Hernandez - [...] on filedocumented in this encounter Care Teams Compensation Intern Relationship Specialty Start Date End Date Yudith Gusman MD [address] [facility] [address]YES [address] [place], [place] [address], [place] [address] PCP - General Family Medicine 04/14/22 01/24/23 documented as of this encounter
--- OUTSIDE RECORDS SUMMARY | 2024-10-16 00:38 | XMS_ITS | Encounter Summary ---
Author Organization [facility] Address [address] [place] [address] Phone Care Team Providers Care Dealer Card Room Name Role Phone Diana Mao MD Primary Care Provider Encounter Details Date Type Department Care Team (Latest Contact Info) Description 05/25/2021 11:30 AM CDT Procedure visit [facility] Otolaryngology [address] [facility] [address] [address] Tish Dutta Au.D. 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 - 05/25/2021 11:30 AM CDT Procedures Kirsty Rea [id number] 05/25/21 Scheduled Routine Check Patient reports no specific concerns regarding hearing aids at this time with the exception of having difficulty replacing cerustops in slim tips. Patient also reports aids do need to be put into the boat cleaning supervisor by 9:30 pm. ASSESSMENT: Otoscopic examination revealed: EACs and tympanic membranes visualized bilaterally. Aid(s) cleaned and checked. Earmold(s) sanitized Listening check revealed: Aid(s) clear and no evidence of distortion or intermittent performance. VC and Program buttons functioning properly Electroacoustic analysis was performed and revealed: Administrative And Program Specialist Settings [id number] MTG EIN Right ALDANA-1 User 94.1 17.5 23.7 Left ALDANA-1 User 105.6 25.8 24.8 Hearing aid programming changes: No adjustments were made to the settings today Per data logging, aids are used 16 hours daily. Patient does use tv connector and informed her the more this is used the faster the battery will drain. Advised patient to put aids in the boat cleaning supervisor whenresting during the day to get them [...] Primary documented in this encounter Care Teams Dealer Card Room Relationship Specialty Start Date End Date Diana Mao MD [address] [place] [address] PCP - General Geriatric Medicine 03/25/20 11/11/21 documented as of this encounter
--- OUTSIDE RECORDS SUMMARY | 2024-10-16 00:38 | XMS_ITS | Encounter Summary ---
Author Organization [facility] Address [address] [place] [address] Phone Care Team Providers Care Senior Mechanical Project Engineer Name Role Phone Diana Mao MD Primary Care Provider Encounter Details Date Type Department Care Team (Late st Contact Info) Description 11/25/2020 Telephone [facility] Otolaryngology [facility] Building [address] [address] Tish Dutta Au.D. 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 D CROP II FARMWORKER documented in this encounter Plan of Treatment Not on file documented as of this encounter Visit Diagnoses Not on filedocumented in this encounter Care Teams Senior Mechanical Project Engineer Relationship Specialty Start Date End Date Diana Mao MD DOOR [address] [place] [address] PCP - General Geriatric Medicine 03/25/20 11/11/21 documented as of this encounter
--- OUTSIDE RECORDS SUMMARY | 2024-10-16 00:38 | XMS_ITS | Encounter Summary ---
Author Organization [facility] Address [address] [facility] [address] [place] [address] Care Team Providers Care Box Car Bracer Name Role Phone Yudith Gusman MD Primary Care Provide r Encounter Details Date Type Department Care Team (Late st Contact Info) Description 05/26/2022 Telephone [facility] Primary Care at [place] 2 [facility] [address] [place] [address] Yudith Gusman MD [address] [place] [address] [address] [place] [address] Social History Tobacco Use Types Packs/Day Years [...] on file Legal Sex Female 3:00 AM TRANSFUSION AIDE Gender Identity Not on file Sexual Orientation Not on file documented as of this encounter Miscellaneous Notes * Telephone Encounter - Yoselin Chilel MA - 05/28/2022 11:08 AM CDT Per [facility], patient isn't scheduled for a colonoscopy. She [...] on filedocumented in this encounter Care Teams Box Car Bracer Relationship Specialty Start Date End Date Yudith Gusman MD [address] [facility] [address]YES [address] [place] [address] PCP - General Family Medicine 04/14/22 01/24/23 documented as of this encounter
--- OUTSIDE RECORDS SUMMARY | 2024-10-16 00:38 | XMS_ITS | Encounter Summary ---
Author Organization [facility] Address [address] [address] Care Team Providers Care Merchandising Coordinator Name Role Phone Diana Mao MD Primary Care Provider [phone] Reason for Visit * Reason Comments Leg Length Discrepancy Pain Encounter Details Date Type Department Care Team (Latest Contact Info) Description 01/22/2021 11:30 AM CDT Office [address] 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 Direct Chill Casting Operator completed by using [employer] Direct speaking software, therefore, transcriptionvariances may occur. [...] 01/08/2021 added in this encounter Care Teams Merchandising Coordinator Relationship Specialty Start Date End Date Diana Mao MD [address] [place] [address] PCP - General Geriatric Medicine 03/25/20 11/11/21 documented as of this encounter
--- OUTSIDE RECORDS SUMMARY | 2024-10-16 00:38 | XMS_ITS | Encounter Summary ---
Author Organization [facility] Address [address] [place] [address] Phone Care Team Providers Care Commodities Broker Name Role Phone Diana Mao MD Primary Care Provider Encounter Details Date Type Department Care Team (Late st Contact Info) Description 02/04/2021 Telephone [facility] Otol[facility]ology [facility] Office Building [address] [address] Tish Dutta Au.D. 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
--- OUTSIDE RECORDS SUMMARY | 2024-10-16 00:38 | XMS_ITS | Encounter Summary ---
Author Organization [facility] Address [address] [place] [address] Phone Care Team Providers Care Weeder Name Role Phone Diana Mao MD Primary Care Provider Encounter Details Date Type Department Care Team (Late st Contact Info) Description 12/23/2020 Telephone [facility] Otolaryngology [facility] Medical Office Building [address] [address] Tish Dutta Au.D. 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 Patient does have the My[employer] lea on the cell phone and will work with the Find My Hearing Aids option later on today. ING CLEANER documented in this encounter Plan of Treatment Not on file documented as of this encounter Visit Diagnoses Not on filedocumented in this encounter Care Teams Weeder Relationship Specialty Start Date End Date Diana Mao MD 2L DO[address] 3 AND [address] [phone] PCP - General Geriatric Medicine 03/25/20 11/11/21 documented as of this encounter
--- OUTSIDE RECORDS SUMMARY | 2024-10-16 00:38 | XMS_ITS | Encounter Summary ---
Author Organization [facility] Address [address] [place] [address] Phone Care Team Providers Care Ssds Mk 2 Advanced Operator Name Role Phone Diana Mao MD Primary Care Provider Encounter Details Date Type Department Care Team (Latest Contact Info) Description 02/03/2021 4:00 PM CDT Procedure visit [facility] Otolaryngology 1044 [facility] Medical Office Building [address] [address] Tish Dutta Au.D. 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
--- OUTSIDE RECORDS SUMMARY | 2024-10-16 00:38 | XMS_ITS | Encounter Summary ---
Author Organization [facility] Address [address] [facility] [address] [place] [address] Care Team Providers Care Printed Circuit Board Drafter Name Role Phone Diana Mao MD Primary Care Provider [phone] Encounter Details Date Type Department Care Team (Late st Contact Info) Description 04/05/2022 Telephone [place] [facility] [address] 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
--- OUTSIDE RECORDS SUMMARY | 2024-10-16 00:38 | XMS_ITS | Encounter Summary ---
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
--- OUTSIDE RECORDS SUMMARY | 2024-10-16 00:38 | XMS_ITS | Encounter Summary ---
Author Organization [facility] Address [address] [place] [address] Phone Care Team Providers Care Ham Rolling Machine Operator Name Role Phone Yudith Gusman MD Primary Care Provide r Encounter Details Date Type Department Care Team (Late st Contact Info) Description 08/30/2022 Documentation [facility] Otolaryngology [facility], [address] [place] [address] Tish Dutta Au.D. [address] 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 - 08/30/2022 4:22 PM CDT Patient's daughter called to extend the warranty for the aids for one additional year and also wants to extend the service plan for one additional year. S/W Anjali at [facility] and the warranty will now on 08/30/2023 (L/D coverage exists only for the right aid at this time). Service plan will on 08/30/2023. documented in this encounter Plan of Treatment Not on file documented as of this encounter Visit Diagnoses Not on filedocumented in this encounter Care Teams Ham Rolling Machine Operator Relationship Specialty Start Date End Date Yudith Gusman MD 2 [facility] [address] [place] [address] PCP - General Family Medicine 04/14/22 01/24/23 documented as of this encounter
--- OUTSIDE RECORDS SUMMARY | 2024-10-16 00:38 | XMS_ITS | Encounter Summary ---
Author Organization [facility] Address [address] [place] [address] Phone Care Team Providers Care Feather Edger Name Role Phone Diana Mao MD Primary Care Provider Encounter Details Date Type Department Care Team (Latest Contact Info) Description 08/28/2020 11:30 AM CDT Procedure visit [facility] Otolaryngology 1044 [facility] Medical Office Building [address] [address] Tish Dutta Au.D. 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 - 08/28/2020 11:30 AM CDT Procedures Follow up. Left slim tip continues to be a problem. Slim tip does not stay in. Left silicone ear mold impression taken without incident. Slim tip sent to [employer] for remake. Patient will use aid with a dome but may not wear left aid if concerned with loss. Patient very much likes using the TV Connector but unable to hear others when watching television. Sensitivity of flor was changed from -6 to 0. HAC scheduled for 09/16/2020 to pick pulling machine operator remade slim tip RT SPECIALIST documented in this encounter Plan of Treatment Not on file documented as of this encounter Visit Diagnoses Diagnosis Sensorineural hearing loss (SNHL) of both ears- Primary documented in this encounter Care Teams Feather Edger Relationship Specialty Start Date End Date Diana Mao MD 2L DOOR 3 AND [address] [place] [address] PCP - General Geriatric Medicine 03/25/20 11/11/21 documented as of this encounter
--- OUTSIDE RECORDS SUMMARY | 2024-10-16 00:38 | XMS_ITS | Encounter Summary ---
Author Organization [facility] Address [address] [address] Care Team Providers Care Cellophane Bag Machine Operator Name Role Phone Diana Mao MD Primary Care Provider [phone] Reason for Referral * Procedure (Routine) - Closed Specialty Diagnoses / Procedures Referred By Contac t Referred To Contact Diagnoses Primary osteoarthritis of right shoulder Procedures Large Joint (Hip, Knee, Shoulder) Injection: R glenohumeral Cherry De La Cruz PA Phone: tel: fax: [facility] Referral ID Status Reason Start Date Expiration Date Visits Re quested Visits Authorized [id number] Closed 12/22/2020 01/21/2022 1 1 RCIL CORE TRANSFORMER ASSEMBLER * Diagnostic Imaging (Routine) - Closed Specialty Diagnoses / Procedures Referred By Contac t Referred To Contact Diagnoses Right shoulder pain, unspecified chronicity Procedures XR Shoulder Right 2 or More Views Cherry De La Cruz PA Phone: tel: fax: [facility] Referral ID Status Reason Start Date Expiration Date Visits Re quested Visits Authorized [id number] Closed 12/18/2020 01/17/2022 1 1 RCIL CORE TRANSFORMER ASSEMBLER Reason for Visit * Reason Comments Pain Encounter Details Date Type Department Care Team (Latest Contact Info) Description 12/18/2020 9:30 AM HYPERCIL CORE TRANSFORMER ASSEMBLER Office Visit [facility] Orthopedics and Sports Medicine [address] [place] [address] Cherry De La Curz PA [address] [place] [address] [place] [address] Primary osteoarthritis of right shoulder (Primary Dx) Social History Tobacco Use Types Packs/Day Years Used Date Smoking Tobacco: Former Smokeless Tobacco: Never Alcohol Use Standard Drinks/Week Comments Yes 0 (1 standard drink = 0.6 oz pur e alcohol) Comments Unknown Sex and Gender Information Value Date Recorded Sex Assigned at Not on file Legal Sex Female 3:00 AM HYPERCIL CORE TRANSFORMER ASSEMBLER Gender Identity Not on file Sexual Orientation Not on file documented as of this encounter Last Filed Vital Signs Vital Sign Reading Time Taken Comments Blood Pressure 144/78 12/18/2020 9:50 AM HYPERCIL CORE TRANSFORMER ASSEMBLER Pulse 59 12/18/2020 9:50 AM HYPERCIL CORE TRANSFORMER ASSEMBLER Temperature 36.2 ??C (97.2 ??F) 12/18/2020 9:50 AM CS T Respiratory Rate - - Oxygen Saturation - - Inhaled Oxygen Concentration - - Weight 81.9 kg (180 lb 9.6 oz) 12/18/2020 9:50 A M HYPERCIL CORE TRANSFORMER ASSEMBLER Height 172.7 cm (5' 8 ) 12/18/2020 9:50 AM HYPERCIL CORE TRANSFORMER ASSEMBLER Body Mass Index 27.46 12/18/2020 9:50 AM HYPERCIL CORE TRANSFORMER ASSEMBLER documented in this encounter Progress Notes * [...] and 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 She recently tried some [...] understanding and agreement of plan. ROBB Glass RCIL CORE TRANSFORMER ASSEMBLER documented in this encounter Plan of Treatment Not on file documented as of this encounter Procedures Procedure Name Priority Date/Time Associated Diagnosis Comments XR SHOULDER RIGHT 2 OR MORE VIEWS Schedule Routine, Read Routine (OP Routine) 12/22/2020 8:17 AM HYPERCIL CORE TRANSFORMER ASSEMBLER Primary osteoarthritis of right shoulder SC ARTHROCENTESIS ASPIR&/INJ MAJOR JT/BURSA W/O US Routine 12/18/2020 9:30 AM HYPERCIL CORE TRANSFORMER ASSEMBLER Primary osteoarthritis of right shoulder documented in this encounter Results * XR Shoulder Right 2 or More Views (12/22/2020 8:17 AM HYPERCIL CORE TRANSFORMER ASSEMBLER) Anatomical Region Laterality Modality Upper Extremities, Shoulder Right Radi ographic Imaging Narrative 12/22/2020 8:17 AM HYPERCIL CORE TRANSFORMER ASSEMBLER X-rays of the right shoulder are viewed and interpreted in clinic today. ?? These demonstrate no fracture subluxation or destructive lesions. ??AC joint DJD changes present with . ??Glenohumeral arthritic change present with joint space narrowing and osteophyte formation. ?? Cherry ZAMUDIO IMG XR PROCEDURES Final Result * SC ARTHROCENTESIS ASPIR&/INJ MAJOR JT/BURSA W/O US (12/18/2020 9:30 AM HYPERCIL CORE TRANSFORMER ASSEMBLER) Narrative Cherry De La Cruz PA - 12/18/2020 9:30 AM HYPERCIL CORE TRANSFORMER ASSEMBLER Cherry De La Cruz PA ? 12/22/2020 ??8:20 AM Large Joint (Hip, Knee, Shoulder) Injection: R glenohumeral Performed by: Chrery De La Cruz PA Authorized by: Cherry [...] of Local Anesthesia Given 12/22/2020 8:19 AM HYPERCIL CORE TRANSFORMER ASSEMBLER 3 mL methylPREDNISolone acetate (DEPO-medrol) injection 80 mg 80 mg, intra-articular, One-Time Injection, Starting on Tue12/22/20 at 0819, For 1 doseIndications:Primary osteoarthritis of right shoulder Given 12/22/2020 8:19 AM HYPERCIL CORE TRANSFORMER ASSEMBLER 80 mg documented in this encounter Historical Medications * This list may reflect changes made after this encounter. labetaloL (NORMODYNE,TRANDA TE) 200 mg tablet 11/04/2020 NIFEdipine (PROCARDIA XL/ADALAT CC) 90 mg 24 hr tablet Take 90 mg by mouth 11/27/2019 hydroCHLOROthiazi de (HYDRODIURIL) 25 mg tablet daily 01/22/2021 added in this encounter Care Teams Cellophane Bag Machine Operator Relationship Specialty Start Date End Date Diana Mao MD [address]L DOOR 3 AND [address] [place] [address] PCP - General Geriatric Medicine 03/25/20 11/11/21 documented as of this encounter
--- OUTSIDE RECORDS SUMMARY | 2024-10-16 00:38 | XMS_ITS | Encounter Summary ---
Author Organization [facility] Address [address] [facility] [address] [place] [address] Care Team Providers Care Business Lawyer Name Role Phone Yudith Gusman MD Primary Care Provide r Encounter Details Date Type Department Care Team (Late st Contact Info) Description 05/12/2022 Orders Only [facility] Primary [facility] at [place] [address] [facility] [address] [place] [address] Yudith Gusman MD [address] [place] [address] [address] [place] [address] Social History Tobacco Use Types Packs/Day Years [...] file Legal Sex Female 3:00 AM SENIOR ELECTRICAL PROJECT MANAGER Gender Identity Not on file Sexual Orientation Not on file documented as of this encounter Plan of Treatment Not on file documented as of this encounter Visit Diagnoses Not on filedocumented in this encounter Care Teams Business Lawyer Relationship Specialty Start Date End Date Yudith Gusman MD [address] [facility] [address] [place] [address] PCP - General Family Medicine 04/14/22 01/24/23 documented as of this encounter
--- OUTSIDE RECORDS SUMMARY | 2024-10-16 00:38 | XMS_ITS | Encounter Summary ---
Author Organization [facility] Address [address] [place] [address] Care Team Providers Care Senior Patient Account Representative Name Role Phone Yudith Gusman MD Primary Care Provide r Encounter Details Date Type Department Care Team (Late st Contact Info) Description 05/25/2022 Telephone [facility] [address] [place] [address] Dominique Bustillos RT Social History Tobacco Use [...] on file Legal Sex Female 3:00 AM FREIGHT ADJUSTER Gender Identity Not on file Sexual Orientation Not on file documented as of this encounter Miscellaneous Notes * Telephone Encounter - Dominique Bustillos RT - 05/25/2022 2:16 PM CDT conf appt documented in this encounter Plan of Treatment Not on file documented as of this encounter Visit Diagnoses Not on filedocumented in this encounter Care Teams Senior Patient Account Representative Relationship Specialty Start Date End Date Yudith Gusman MD [address] [place] [address] [address] [place] [address] PCP - General Family Medicine 04/14/22 01/24/23 documented as of this encounter
--- OUTSIDE RECORDS SUMMARY | 2024-10-16 00:38 | XMS_ITS | Encounter Summary ---
Author Organization [facility] Address [address] [facility] [address] [place] [address] Care Team Providers Care Affiliate Marketing Specialist Name Role Phone Yudith Gusman MD Primary Care Provide r Reason for Visit * Reason Comments New Patient Encounter Details Date Type Department Care Team (Late st Contact Info) Description 04/14/2022 1:30 PM CDT Office Visit [place] [facility] 2 [facility] [address] [place] [address] Yudith Gusman MD [address] [place] [address] [address] [place] [address] Primary hypertension (Primary Dx); BMI [...] on file Legal Sex Female 3:00 AM AUTOMOTIVE CONSULTANT Gender Identity Not on file Sexual Orientation [...] She mentioned that she goes to a clinical research physician and that there is a number on [...] needed added in this encounter Care Teams Affiliate Marketing Specialist Relationship Specialty Start Date End Date Yudith Gusman MD [address] [facility] [address] [place] [address] PCP - General Family Medicine 04/14/22 01/24/23 documented as of this encounter
--- OUTSIDE RECORDS SUMMARY | 2024-10-16 00:38 | XMS_ITS | Encounter Summary ---
Author Organization [facility] Address [address] [place] [address] Phone Care Team Providers Care School Bus Technician Name Role Phone Diana Mao MD Primary Care Provider Encounter Details Date Type Department Care Team (Latest Contact Info) Description 07/09/2021 2:30 PM CDT Procedure visit [facility] Otolaryngology [address] [facility] Medical Office Building [address] [address] Tish Dutta Au.D. [address] [place] [address] Sensorineural hearing loss (SNHL) of both ears (Primary Dx) Social History Tobacco Use Types Packs/Day Years Used Date Smoking Tobacco: Former Smokeless Tobacco: Never Alcohol Use Standard Drinks/Week Comments Yes 0 (1 standard drink = 0.6 oz pur e alcohol) Comments Unknown Sex and Gender Information Value Date Recorded Sex Assigned at Not on file Legal Sex Female 3:00 AM CERTIFIED GREEN BUILDING ENGINEER Gender Identity Not on file Sexual Orientation Not on file documented as of this encounter Procedure Notes * Tish Dutta Au.D. - 07/09/2021 2:30 PM CDT Procedures Kirsty Rea [id number] 07/13/21 Patient came in to have aids turned up slightly. ASSESSMENT: Otoscopic examination revealed: EACs and tympanic membranes visualized bilaterally. Aid(s) cleaned and checked. Listening check revealed: Aid(s) clear and no evidence of distortion or intermittent performance. VC and Program buttons functioning properly Electroacoustic analysis was performed and revealed: Market Survey Representative Settings (HFA FOG @50) [id number] MTG EIN [...] in this encounter Care Teams School Bus Technician Relationship Specialty Start Date End Date Diana Mao MD 2L DOOR 3 AND [address] [place] [address] PCP - General Geriatric Medicine 03/25/20 11/11/21 documented as of this encounter
--- OUTSIDE RECORDS SUMMARY | 2024-10-16 00:39 | XMS_ITS | Encounter Summary ---
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
--- OUTSIDE RECORDS SUMMARY | 2024-10-16 00:39 | XMS_ITS | Encounter Summary ---
Author Organization [facility] Care Team Providers Care Oral Surgery Physician Name Role Phone Unavailable Primary Care Provider Unavailabl e Encounter Details Date Type Department Care Team (Late st Contact Info) Description 04/07/2011 - 04/07/2011 11:59 PM CDT Hospital Encounter [facility] Rebeca Lovelace MD [address] [address] Other dyspnea and respiratory abnormality; Disease of tricuspid valve Social History Tobacco Use Types Packs/Day Years Used Date Smoking Tobacco: Never Assessed Comments Unknown Sex and Gender Information Value Date Recorded Sex Assigned at Not on file Legal Sex Female 3:00 AM FORENSIC PHOTOGRAPHER Gender Identity Not on file Sexual Orientation Not on file documented as of this encounter Plan of Treatment Not on file documented as of this encounter Visit Diagnoses Diagnosis Other dyspnea and respiratory abnormality 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
--- OUTSIDE RECORDS SUMMARY | 2024-10-16 00:39 | XMS_ITS | Encounter Summary ---
Author Organization [facility] Care Team Providers Care Chute Worker Name Role Phone Unavailable Primary Care Provider Unavailabl e Encounter Details Date Type Department Care Team (Late st Contact Info) Description 05/02/2016 7:10 PM CDT - 05/02/2016 9:35 PM CDT Hospital Encounter [facility] Saurabh Rodriguez MD [address] [facility] [place] [address] Cellulitis of trunk Social History Tobacco Use Types Packs/Day Years Used Date Smoking Tobacco: Never Comments Unknown Sex and Gender Information Value Date Recorded Sex Assigned at Not on file Legal Sex Female 3:00 AM CATH LAB TECHNOLOGIST Gender Identity Not on file Sexual Orientation Not on file documented as of this encounter Plan of Treatment Not on file documented as of this encounter Visit Diagnoses Diagnosis Cellulitis of trunk Cellulitis and abscess of trunk documented in this encounter
--- OUTSIDE RECORDS SUMMARY | 2024-10-16 00:39 | XMS_ITS | Encounter Summary ---
Author Organization [facility] Address [address] [place] [address] Phone Care Team Providers Care Director Of Physical Therapy Name Role Phone Diana Mao MD Primary Care Provider Reason for Visit * Reason Comments Hearing Aid Fitting Encounter Details Date Type Department Care Team (Latest Contact Info) Description 06/25/2020 1:00 PM CDT Procedure visit [facility] Otolaryngology [address] [facility] Medical Office [address] [address] Supriya Ricardo Au.D. 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 - 06/25/2020 1:00 PM CDT Procedures Staci Burt CCC-A PATIENT: Kirsty Rea : 1940 TYPE OF SERVICE: Hearing Aid Fitting DATE OF SERVICE: 06/25/2020 PATIENT REPORTS: The patient arrived to be fit with bilateral Phonak [place] MR70T hearing aids with slim tips [...] on Jane 8000 on: electroacoustic evaluation and mxyhc-jt-qmpp ratio for directional microphones. ANSI-2009 reveals <10% THD. Printout placed in chart. Assessed performance of directional microphone by looking @ differences in the kovjw-qh-wnka ratio using the Jane 8000 directional microphone [...] needed Joe for hearing aids Patient provided: Facilities Custodian spray Dry pod( didn't give patient instruction on replacement) TV connector Division policy: Return of hearing aids Annual evaluation Re-programming In-house repairs Patient signed [facility]/ FU AFTER WARRANTY HAS VISIT statement [...] documented in this encounter Care Teams Director Of Physical Therapy Relationship Specialty Start Date End Date Diana Mao MD [address] [place] [address] PCP - General Geriatric Medicine 03/25/20 11/11/21 documented as of this encounter
--- OUTSIDE RECORDS SUMMARY | 2024-10-16 00:39 | XMS_ITS | Encounter Summary ---
Author Organization [facility] Address [address] [place] [address] Phone Care Team Providers Care Contact Manager Name Role Phone Diana Mao MD Primary Care Provider Encounter Details Date Type Department Care Team (Latest Contact Info) Description 07/15/2020 1:00 PM CDT Procedure visit [facility] Otolaryngology [address] [facility] Medical Office Building [address] [address] Tish Dutta Au.D. [address] [address] Sensorineural hearing loss (SNHL) of both ears (Primary Dx) Social History Tobacco Use Types Packs/Day Years Used Date Smoking Tobacco: Never Comments Unknown Sex and Gender Information Value Date Recorded Sex Assigned at Not on file Legal Sex Female 3:00 AM REAL ESTATE ASSOCIATE Gender Identity Not on file Sexual [...] Primary documented in this encounter Care Teams Contact Manager Relationship Specialty Start Date End Date Diana Mao MD [address] [place] [address] PCP - General Geriatric Medicine 03/25/20 11/11/21 documented as of this encounter
--- OUTSIDE RECORDS SUMMARY | 2024-10-16 00:39 | XMS_ITS | Encounter Summary ---
Author Organization [facility] Care Team Providers Care Rail Operations Controller Name Role Phone Unavailable Primary Care Provider Unavailabl e Encounter Details Date Type Department Care Team (Late st Contact Info) Description 11/30/2007 - 11/30/2007 11:59 PM REMOTE BROADCAST ENGINEER Hospital [facility] [place] [place] [address] [place] [address] Circumscribed scleroderma Social History Tobacco Use Types Packs/Day Years Used Date Smoking Tobacco: Never Assessed Comments Unknown Sex and Gender Information Value Date Recorded Sex Assigned at Not on file Legal Sex Female 3:00 AM REMOTE BROADCAST ENGINEER Gender Identity Not on file Sexual Orientation Not on file documented as of this encounter Plan of Treatment Not on file documented as of this encounter Visit Diagnoses Diagnosis Circumscribed scleroderma documented in this encounter
--- OUTSIDE RECORDS SUMMARY | 2024-10-16 00:39 | XMS_ITS | Encounter Summary ---
Author Organization [facility] Address [address] [place] [address] Care Team Providers Care Impregnator Helper Name Role Phone Unavailable Primary Care Provider Unavailabl e Encounter Details Date Type Department Care Team (Latest Contact Info) Description 12/13/2016 9:17 AM COOK STATION - 12/13/2016 11:59 PM COOK STATION Hospital Encounter [facility] [phone] Dav Mai MD [address] [address] Discharge Disposition: Discharge to home or self care Social History Tobacco Use Types Packs/Day Years Used Date Smoking Tobacco: Never Comments Unknown Sex and Gender Information Value Date Recorded Sex Assigned at Not on file Legal Sex Female 3:00 AM COOK STATION Gender Identity Not on file Sexual Orientation Not on file documented as of this encounter Discharge Disposition Disposition Code Departure Means Destination Discharge to home or self care documented in this encounter Plan of Treatment Not on file documented as of this encounter Visit Diagnoses Not on filedocumented in this encounter
--- OUTSIDE RECORDS SUMMARY | 2024-10-16 00:39 | XMS_ITS | Encounter Summary ---
Author Organization [facility] Address [address] [place] [address] Phone Care Team Providers Care Singer Songwriter Name Role Phone Diana Mao MD Primary Care Provider Reason for Visit * Reason Comments Audiometric Evaluation Hearing Aid Evaluation * (Routine) - Closed Specialty Diagnoses / Procedures Referred By Abena torrez Referred To Contact Diagnoses Sensorineural hearing loss (SNHL) of both ears Procedures Audiogram Diana Mao MD Phone: tel: fax: [facility] (All Locations) Referral ID Status Reason Start Date Expiration Date Visits Re quested Visits Authorized [id number] Closed 03/25/2020 10/04/2021 1 1 Encounter Details Date Type Department Care Team (Latest Contact Info) Description 05/14/2020 1:00 PM CDT Procedure visit [facility] Otolaryngology [facility] Medical Office Building [address] [place] [id number] Supriya Ricardo Au.D. 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 - 05/14/2020 1:00 PM CDT Procedures AuD. Javed, [facility] PATIENT: Kirsty Rea : 1940 TYPE OF [...] speech Word recognition testing was performed at [facility] using recorded version of NU-6 lists of [...] background noise, on the telephone and at moravian service TESTS PERFORMED: See: COSI ASSESSMENT: The patient was counseled on: ??? Her audiometric results ??? The importance of binaural amplification for hearing in background noise, localization, and forfeeling balanced. ??? Different styles of hearing aids, particularly eaeubwtx-zr-ewv canal and in-the-ear style hearing aid(s) - [...] ??? The patient was provided with the [facility] hearing aid information packet and brochures on hearing aids discussed today ??? Loss and damage and repair warranties ??? [facility]???s policy on insurance reimbursement ??? [facility]???s policy on hearing aid checks and programming of hearing aids ??? Provided information on the [email or web address] [place] Card program ??? The trial period and the restocking fee of $150/hearing aid if the hearing aids are returned Patient would like to think about which hearing aids and was provided brochures for Phonak, Resound, Chary and Widex. Patient will call with decision - is also considering licensed direct entry midwife and understands earmolds are $204with licensed direct entry midwife and the aids only come in beige [...] 05/14/2020 documented in this encounter Care Teams Singer Songwriter Relationship Specialty Start Date End Date Diana Mao MD [address] [place] [address] PCP - General Geriatric Medicine 03/25/20 11/11/21 documented as of this encounter
[2024-10-16] MEDS: MORPHINE SULFATE (*CRX) 2 MG/ML INJ IV PUSH (06:33)
[2024-10-16] MEDS: LORazepam INJ (*CRX) 2 MG/ML VIAL IV PUSH (06:33)
--- NOTE | 2024-10-16 08:01 | P.DN_ITS ---
Discharge Summary Date and Time Date of : 10/16/24 Time of : 06:50 Provider Pronounced By: 2 RNs Name of First RN That Pronounced: Alicia Delgado RN Name of Second RN That Pronounced: Betina Reed RN Probable Cause of Probable Cause of : Pneumonia sepsis Summary Hospital Course: This is a 83-year-old female presented from dialysis with shortness of breath. She reported having increased cough over the past day or so. No chest pain reported. Recent hip fracture. Has underlying history of end-stage renal disease on hemodialysis. Laboratory workup revealed normal WBC of 4.8 mild anemia at 10.1 creatinine of 3.3 electrolytes were unremarkable. Troponin was negative. LFT was normal. Influenza RSV COVID swab was negative. ABG showed 7.54/30/105/26. Chest x-ray with infiltrates. Urinalysis suggestive of UTI. CTA chest showed no PE. showed Pneumonia and right middle lobe and right lower lobe noted. On ED evaluation she was hypertensive and mildly tachycardic patient was placed on a BiPAP due to respiratory distress overnight. tapered to oxygen via NC. however patient continued to require BiPAP X were adjusted to treat pneumonia. Despite these measures patient continued to decline requiring continuous BiPAP . Code status was also conformed to be resuscitate. she also became unresponsive with hypotension on 10/15/2024 when goals of care discussion was made and patient was transition to comfort care. She eventually . Necessary arrangements were made. Additional Data Confirmation of as documented by pronouncing clinician: Pupillary Reflex, Palpable Pulses, Response to Stimuli, Heart Tones and Breath Sounds Name of Provider Notified: dr. ace Time Provider Notified: 07:00 Provider Requests Autopsy: No Family Requests Autopsy: No Pre Sales Network Engineer Notified: Yes Date [facility] Notified of : 10/16/24 Time [facility] Notified of : 07:18
== END 2024-10-16 06:50 | disposition expired | DRG 871 ==
LOC: ANHED 19:13 → ANHICU 19:57 → ANHIMU 10-13 18:41 → ANH3MED 10-15 22:31
PROVIDERS: Internal Medicine; Internal Medicine Nephrology; Admitting Provider Internal Medicine; Emergency Provider Emergency Medicine; PCP Hospitalist; Visit Provider Internal Medicine
DX: A41.9 Sepsis, unspecified organism (principal); J18.9 Pneumonia, unspecified organism; N18.6 End stage renal disease; J96.01 Acute respiratory failure with hypoxia; S52.502A Unspecified fracture of the lower end of left radius, initial encounter for closed fracture; I12.0 Hypertensive chronic kidney disease with stage 5 chronic kidney disease or end stage renal disease; N39.0 Urinary tract infection, site not specified; D63.8 Anemia in other chronic diseases classified elsewhere; Z66 Do not resuscitate; Z99.2 Dependence on renal dialysis; Z86.73 Personal history of transient ischemic attack (TIA), and cerebral infarction without residual deficits; Z90.49 Acquired absence of other specified parts of digestive tract; R13.10 Dysphagia, unspecified; F03.90 Unspecified dementia, unspecified severity, without behavioral disturbance, psychotic disturbance, mood disturbance, and anxiety; M10.9 Gout, unspecified; X58.XXXA Exposure to other specified factors, initial encounter
CPT/HCPCS: 36415; 36600; 71045; 71275; 80053; 80202; 81001; 82805; 83735; 83880; 84100; 84484; 85018; 85025; 85380; 86706; 87040; 87086; 87340; 87637; 87641; 93005; 94002; 94003; 94640; 96365; 96367; 96375; 99285; A9270; G0257; J0456; J0692; J0696; J1644; J1836; J1940; J2060; J2270; J2919; J3370; J7030; J7050; P9047; Q5105; Q9967